=== PATIENT | female | born 1945 | race Caucasian/White ===

== ENCOUNTER 2019-01-19 17:55 | Observation (INO) | payer MEDICARE, SELFPAY ==
[2018-12-04 14:14] VITALS: BMI 51.7
[2019-01-19 17:56] VITALS: BP 160/67; PULSE 71; PULSE 75; RESP 16; TEMP 36.8; O2SAT 96; BMI 55.6
--- NOTE | 2019-01-19 18:20 | CT_ITS ---
STUDY: CTA CHEST REASON FOR EXAM: Female, 73 years old. Pain RADIATION DOSAGE (If Supplied By Facility): CTDIvol = ( 31.58 ) mGy, DLP = ( 792.03 ) mGycm TECHNIQUE: The examination was performed with the intravenous administration of 100ML IV Isovue 370. Post-processing of the angiographic images was performed, with multiplanar reformation and 3D reconstruction. Individualized dose optimization techniques were used for this CT. COMPARISON: None. FINDINGS: Normal enhancement of the main pulmonary artery and right and left pulmonary arteries. Normal enhancement of the bilateral peripheral pulmonary arteries. There is no demonstrated pulmonary embolism. Normal thoracic aorta and visualized great vessels. There is no demonstrated aortic dissection. Normal heart and pericardium. Normal mediastinum. Normal hilar regions. Normal visualized trachea and bronchi. The lungs are well expanded. Mild scattered groundglass opacities are present. There is no consolidation. Normal pleura. Normal chest wall structures. Normal osseous structures. Normal visualized upper abdomen. Moderate multilevel degenerative changes are present throughout the spine. CT/CTA Chest W/WO Contrast IMPRESSION: No pulmonary embolism. Mild scattered ground glass opacities, likely secondary to areas of mild edema or inflammation. No consolidation. Electronically Signed: Jerry Banegas, at 19:26 EDT Tel , Service support ,
--- NOTE | 2019-01-19 18:20 | EKG12_ITS ---
Test Reason : CP Blood Pressure : / mmHG Vent. Rate : 078 BPM Atrial Rate : 078 BPM P-R Int : 136 ms QRS Dur : 082 ms QT Int : 406 ms P-R-T Axes : 077 052 061 degrees QTc Int : 462 ms Sinus rhythm with Premature atrial complexes Otherwise normal ECG Confirmed by RAHUL JOSE, ARIAN ([id number]), technical writer and editor MAMIE HENDERSON ([id number]) on 01/22/2019 1:15:32 PM Referred By: MARLI/DARSHAN Confirmed By:ARIAN KAY MD
[2019-01-19 18:24] VITALS: O2SAT 94
[2019-01-19] MEDS: Aspirin 81 MG TAB.CHEW 324 MG PO (18:28)
[2019-01-19 18:31] LABS: Absolute Lymphocyte Count 1.25 X10^3/ul (0.83-4.51); Absolute Neutrophil Count 5.3 X10^3/uL (2.0-7.7); Basophil# 0.02 X10^3/uL; Basophil% 0.3 % (0-1); Eosinophil# 0.65 X10^3/uL; Eosinophils% 8.3 % (0-5); Hematocrit 40.1 % (37-47); Hemoglobin 12.9 g/dl (12.0-15.0); Lymphocyte # 1.25 X10^3/ul (4.0); Mean Corp Hgb Conc 32.2 g/gl (32-36); Mean Corpuscular Hgb 29.7 pg (27.0-32.0); Mean Corpuscular Volume 92.2 fL (81-99); Monocyte# 0.56 X10^3/uL; Monocyte% 7.2 % (0-10); Neutrophil # 5.31 X10^3/uL (2.7-7.7); Neutrophil % 68.1 % (47-70); Platelet Count 221 K/mm3 (150-450); RBC Distribution Width CV 13.2 % (11.6-14.6); RBC Distribution Width SD 44.5 fl (35.1-43.9); Red Blood Count 4.35 M/mm3 (4.2-5.4); White Blood Count 7.8 K/mm3 (4.4-11.0)
[2019-01-19 18:36] LABS: POSITIVE COUNT NO; POSITIVE DIFFERENTIAL NO; POSITIVE MORPHOLOGY NO
[2019-01-19 18:39] LABS: International Normalized Ratio 1.1; Prothrombin Time (Protime)PT. 13.5 SECONDS (11.7-14.9)
[2019-01-19 18:40] LABS: Partial Thromboplast Time 29.1 Seconds (24.1-36.2)
[2019-01-19 18:45] LABS: Anion Gap 4 (5-15); BUN 23 mg/dL (7-18); BUN/Creat Ratio 20.7 RATIO (10-20); Chloride 105 mmol/L (98-107); Creatinine, Serum 1.11 mg/dL (0.55-1.02); EST Glomerular Filtration Rate 51 mL/min (>60); Est Glom Filt Rate - Afr Amer 62 mL/min (>60); Estimated Creatinine Clearance 45.53 ml/min; Glucose 178 mg/dL (74-106); Sodium Level 139 mmol/L (136-145)
[2019-01-19 20:53] VITALS: BP 149/69
--- NOTE | 2019-01-19 21:01 | ED.DCSUM_ITS ---
- ER Visit Summary Date of Service: 01/19/19 Chief Complaint: Chest pain History of Present Illness: The patient is a 73 F with chest pain for about an hour prior to arrival. It started after she was on her exercise bike. Left side breast pain, shooting pain. Better with rest. She felt an irregular hear tbeat as well. History of PACs, PVCs, SVT, diabetes, hypertension, hyperlipidemia, venous thromboembolism. She takes aspirin but no other blood thinners. Former smoker. Physical Examination: Afebrile and vital signs unremarkable. Alert and oriented. No acute distress. Heart regular. Lungs clear. Abdomen soft. Extremities nontender. Skin appears normal. Test Results: EKG shows sinus rhythm at a rate of 78. PACs noted. No sign of acute ischemia or infarction pattern. CBC, BMP, troponin unremarkable. CTA showed no evidence of PE. She has mild scattered groundglass opacities. Emergency Department Course and Treatment: Patient was placed on a monitor. Evaluated for chest pain, angina, PE. Work-up was all fairly unremarkable. Patient has multiple risk factors for heart disease. No history of coronary disease. No recent evaluation. I believe she needs further inpatient testing as she has a heart score of 5. Treatment Plan: As above Disposition: Obs PCU Impression: 1. Chest pain This note was generated with [employer] dictation software. It may contain incorrect words, spelling, and punctuation that were not noted in review of the chart prior to signing ED Disposition - Plan for ED Patient: Referrals: Luzma Palencia MD [Primary Care Provider] -
--- NOTE | 2019-01-19 21:30 | PCM.HP.STD ---
Problem List (1) Chest pain Status: Acute History of Present Illness Date of Admission: 01/19/19 Chief Complaint: chest pain The patient is a 73 year old F with a significant history of former smoker; asthma; diabetes mellitus; hypertension; hyperlipidemia; SVT; PACs and PVCs who presented to emergency department with chest pain that started the same day of admission. Her symptoms started while she was getting ready to end exercising on a bike. Her chest pain started on her left upper chest close to her shoulder and it radiated diagonally toward her mid sternum. Her chest pain lasted only a few seconds and as such no aggravating or ameliorating factors could be obtained. She describes her chest pain as a burning sensation. After this brief episode she has had persistence soreness of her chest. Associated with symptoms is nausea without vomiting. Also she had shortness of breath but she attributes her shortness of breath to a history of asthma. She denies any diaphoresis. Reportedly about 4 years ago she had a positive stress test for which reason a cardiac cath was done. However the cardiac cath was unremarkable. Past Medical History Past Medical History (Chronic Problems): Chronic Problems (Last Reviewed 01/19/19 @ 22:50 by Krystian Sandoval MD) Essential hypertension (Chronic) Diabetes mellitus, type II (Chronic) Hyperlipidemia (Chronic) Medical History: Medical History (Last Reviewed 01/20/19 @ 05:56 by Krystian Sandoval MD) Essential hypertension (Chronic) I10 Premature atrial contractions (Acute) I49.1 Paroxysmal SVT (supraventricular tachycardia) (Acute) I47.1 Premature ventricular contraction (Acute) I49.3 Diabetes mellitus, type II (Chronic) E11.9 Hyperlipidemia (Chronic) E78.5 Bimalleolar ankle fracture S82.843A History of DVT (deep vein thrombosis) Z86.718 Asthma J45.909 Charcot's joint of left foot M14.672 GERD (gastroesophageal reflux disease) K21.9 Hypertension (Inactive) I10 Allergies escitalopram Allergy (Verified 12/04/18 14:14) Other hydrochlorothiazide Allergy (Verified 12/04/18 14:14) Other codeine Adverse Reaction (Verified 12/04/18 14:14) Nausea naproxen [From Naprosyn] Adverse Reaction (Verified 12/04/18 14:14) Nausea Home Medications: Ambulatory Orders Medication Instructions Recorded Diltiazem CD [Cardizem CD] 180 mg PO BID 03/06/16 Insulin Lispro [Humalog] 6 unit SC TID 12/16/16 aspirin 81 mg tablet,delayed 81 mg PO DAILY 11/24/17 release Ergocalciferol [Vitamin D] 50,000 unit PO SA 01/19/19 Fluticasone/Salmeterol [Advair 1 puff INHALATION BID 01/19/19 100-50 Diskus] Insulin Glargine,Hum.rec.anlog 20 - 25 unit SQ QHS 01/19/19 [Basaglar Kwikpen U-100] Insulin NPH Human Isophane 10 units SQ DAILY 01/19/19 [Novolin N] Metoprolol Tartrate 25 mg PO DAILY 01/19/19 Metoprolol Tartrate 50 mg PO DAILY 01/19/19 Omeprazole [Prilosec] 20 mg PO BID 01/19/19 Ramipril 10 mg PO BID 01/19/19 Zolpidem Tartrate [Ambien] 2.5 mg PO QHS PRN PRN 01/19/19 Surgical History: Surgical History (Last Reviewed 01/20/19 @ 05:56 by Krystian Sandoval MD) History of cholecystectomy Z90.49 History of tonsillectomy Z90.89 Surgical History: cholecystectomy, herniorrhaphy, tonsillectomy Psychiatric History: Anxiety, Depression 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 Denies: Palpitations Respiratory: Reports: Shortness of Breath. Denies: Cough Gastrointestinal: Reports: Nausea. Denies: Abdominal Pain, Vomiting Genitourinary: Denies: Dysuria Musculoskeletal: Denies: Joint Pain, Joint Tenderness Skin: Denies: Rash, Wounds Neurological: Denies: Numbness, Tingling, Focal weakness Psychiatric: Denies: Anxiety, Depression, Homicidal Ideations, Suicidal Ideations Hematologic/ Lymphatic: Denies: Easy Bruising, Easy Bleeding VTE Information - Inpt Only VTE Present on Admission: No VTE Mechan Device Prophylaxis: None VTE Pharm Prophylaxis ordered?: Yes Patient Problems: Active and Suspected Problems (Last Reviewed 01/19/19 @ 22:50 by Krystian Sandoval MD) Chest pain (Acute) - Physical Exam General: Alert, Oriented x3, Cooperative, - - Super morbidly obese HEENT: Atraumatic, PERRLA, EOMI, Normocephalic Neck: Supple, No JVD, Negative Carotid Bruits Lungs: Clear to auscultation, Normal air movement Cardiovascular: Regular rate, No murmurs Abdomen: Bowel Sounds Present, Soft, Non Tender Extremities: No edema, Capillary Refill Less than 3 Seconds Skin: No rashes, No breakdown Musculoskeletal: - - Deformed bilateral feet Neurological: Cranial nerves II-XII grossly intact Psych/Mental Status: Anxious Vital Signs Temp Pulse Resp BP Pulse Ox 98.3 F 71 16 149/69 H 94 01/19/19 17:56 01/19/19 17:56 01/19/19 17:56 01/19/19 20:53 01/19/19 18:24 Oxygen Delivery Method Room Air Weight: 166 kg Body Mass Index (BMI) 55.6 Finger Stick Blood Glucose 140 Laboratory Tests Past 24 Hrs 01/19/19 01/19/19 01/19/19 18:00 18:00 18:00 WBC 7.8 RBC 4.35 Hgb 12.9 Hct 40.1 MCV 92.2 MCH 29.7 MCHC 32.2 RDW 13.2 RDW Differential 44.5 H Plt Count 221 MPV 12.0 Immature Gran % (Auto) 0.100 Neut % (Auto) 68.1 Lymph % (Auto) 16.0 L [place] % (Auto) 7.2 Eos % (Auto) 8.3 H Baso % (Auto) 0.3 Absolute Neuts (auto) 5.3 Absolute Lymphs (auto) 1.25 Total Counted Not Reportable PT 13.5 INR 1.1 APTT 29.1 Sodium 139 Potassium 4.0 Chloride 105 Carbon Dioxide 30.0 Anion Gap 4 L BUN 23 H Creatinine 1.11 H Estim Creat Clear Calc 45.53 Est GFR (MDRD) Af Amer 62 Est GFR (MDRD) Non-Af 51 L BUN/Creatinine Ratio 20.7 H Glucose 178 H Calcium 9.0 Troponin I < 0.015 Assessment/Plan All Active Problems (Last Reviewed 01/19/19 @ 22:50 by Krystian Sandoval MD) Chest pain (Acute) Premature atrial contractions (Acute) Paroxysmal SVT (supraventricular tachycardia) (Acute) Premature ventricular contraction (Acute) The patient is a 73 year old F with a significant history of former smoker; diabetes mellitus; hypertension; hyperlipidemia; SVT; PACs and PVCs who presented to emergency department with chest pain that started with riding on a bike. Chest pain Admit to a monitored bed on PCU CTPA showed no pulmonary embolism. Mild scattered groundglass opacities likely secondary areas of mild edema or inflammation. No consolidation. CTPA was independently reviewed. I agree with images interpretation. EKG independently reviewed confirms PAC Received aspirin 324 mg in the emergency department ASA 81 mg p.o. daily continued SL NTG 0.4 mg prn as needed for chest pain Morphine as needed for pain We will check lipid panel. Serial cardiac enzymes Stat EKG as needed for chest pain Chemical Stress test in the AM if the cardiac enzymes are negative. Patient has Charcot joints and wear a brace and cannot do treadmill stress test. Hypertension On presentation her blood pressure was not within goal Metoprolol and JOEY inhibitor continued Cardizem continued Hydralazine as needed ordered Trend blood pressure and adjust blood pressure medication Diabetes mellitus On presentation her blood glucose was elevated but within goal Patient takes 20 to 25 units of Basaglar at home. Will de-escalate her long acting insulin in the hospital setting. She takes prandial insulin at home. Patient will be kept n.p.o. for stress test. Will check Accu-Chek every 6 hours and put her on a correction scale insulin. Vitamin D deficiency Vitamin D continued GERD Prilosec continued Insomnia Ambien continued Asthma Advair continued DVT prophylaxis Subcutaneous Lovenox Code Visit OBSV E&M: [id number] Initial observation care L3
[2019-01-19 22:39] VITALS: BP 176/73; PULSE 66; RESP 18; TEMP 36.6; O2SAT 95
[2019-01-19 22:40] VITALS: BMI 54.8
[2019-01-19 22:50] VITALS: PULSE 63
[2019-01-19 22:53] VITALS: BMI 54.9
--- NOTE | 2019-01-19 22:54 | EKG12_ITS ---
Test Reason : CP ADMIT Blood Pressure : / mmHG Vent. Rate : 061 BPM Atrial Rate : 061 BPM P-R Int : 140 ms QRS Dur : 086 ms QT Int : 438 ms P-R-T Axes : 075 049 060 degrees QTc Int : 440 ms Sinus rhythm with Premature atrial complexes Confirmed by RAHUL JOSE, ARIAN ([id number]), social media editor RANJITH GUZMAN ([id number] on 01/25/2019 1:17:09 PM Referred By: DR GASTON Confirmed By:ARIAN KAY MD
[2019-01-20] VITALS (11 sets, daily range): BP systolic 138–173; BP diastolic 53–73; PULSE 55–82; RESP 16–18; TEMP 36.4–36.6; O2SAT 93–98
[2019-01-20] MEDS: Zolpidem Tartrate 5 MG Tablet 2.5 MG PO (00:04)
[2019-01-20 00:20] LABS: Bedside Glucose 135 mg/dL (70-110)
[2019-01-20] MEDS: 0.9% NaCl Peripheral Flush Adult/Peds IV (00:34)
[2019-01-20] MEDS: hydrALAZINE 20 MG/ML Vial 10 MG IV (00:34)
[2019-01-20 04:57] LABS: Absolute Lymphocyte Count 0.85 X10^3/ul (0.83-4.51); Absolute Neutrophil Count 4.3 X10^3/uL (2.0-7.7); Basophil# 0.03 X10^3/uL; Basophil% 0.5 % (0-1); Eosinophil# 0.62 X10^3/uL; Eosinophils% 9.9 % (0-5); Hematocrit 38.6 % (37-47); Hemoglobin 12.3 g/dl (12.0-15.0); Lymphocyte # 0.85 X10^3/ul (4.0); Lymphocyte % 13.6 % (19-41); Mean Corp Hgb Conc 31.9 g/gl (32-36); Mean Corpuscular Hgb 29.2 pg (27.0-32.0); Mean Corpuscular Volume 91.7 fL (81-99); Mean Platelet Vol. 11.9 fl (6.2-12.0); Monocyte# 0.49 X10^3/uL; Monocyte% 7.8 % (0-10); Neutrophil # 4.26 X10^3/uL (2.7-7.7); Neutrophil % 68.2 % (47-70); Platelet Count 174 K/mm3 (150-450); RBC Distribution Width SD 42.7 fl (35.1-43.9); Red Blood Count 4.21 M/mm3 (4.2-5.4); White Blood Count 6.3 K/mm3 (4.4-11.0)
[2019-01-20 04:58] LABS: POSITIVE COUNT NO; POSITIVE DIFFERENTIAL NO; POSITIVE MORPHOLOGY NO
[2019-01-20 05:02] LABS: International Normalized Ratio 1.1; Prothrombin Time (Protime)PT. 13.7 SECONDS (11.7-14.9)
[2019-01-20 05:03] LABS: Partial Thromboplast Time 29.5 Seconds (24.1-36.2)
[2019-01-20 05:05] LABS: Anion Gap 8 (5-15); BUN 21 mg/dL (7-18); BUN/Creat Ratio 24.7 RATIO (10-20); Calcium,Total 8.5 mg/dL (8.5-10.1); Chloride 104 mmol/L (98-107); Creatinine, Serum 0.85 mg/dL (0.55-1.02); EST Glomerular Filtration Rate 70 mL/min (>60); Est Glom Filt Rate - Afr Amer 84 mL/min (>60); Estimated Creatinine Clearance 59.46 ml/min; Glucose 261 mg/dL (74-106); Potassium 3.8 mmol/L (3.5-5.1); Sodium Level 141 mmol/L (136-145)
--- NOTE | 2019-01-20 05:55 | EKG12_ITS ---
Test Reason : AM EKG Blood Pressure : / mmHG Vent. Rate : 058 BPM Atrial Rate : 058 BPM P-R Int : 148 ms QRS Dur : 084 ms QT Int : 464 ms P-R-T Axes : 069 044 051 degrees QTc Int : 455 ms Sinus bradycardia Confirmed by RAHUL JOSE, ARIAN ([id number]), acquisitions editor RANJITH GUZMAN ([id number] on 01/25/2019 1:13:34 PM Referred By: DR GASTON Confirmed By:ARIAN KAY MD
[2019-01-20] MEDS: Ramipril 10 MG Capsule PO (06:25)
[2019-01-20] MEDS: Aspirin E.C. 81 MG Tablet PO (06:25)
[2019-01-20] MEDS: Budesonide Respules 0.5 MG/2 ML AMPUL.NEB. INHALATION (07:03)
[2019-01-20] MEDS: Albuterol 2.5 MG/3 ML VIAL.NEB. INHALATION ×2 (07:03→13:20)
[2019-01-20 07:12] LABS: Cholesterol 170 mg/dL (200); High Density Lipoprotein 60 mg/dL; Triglycerides 91 mg/dL; Very Low Density Lipoprotein 18 mg/dL (5-40)
[2019-01-20 11:16] LABS: Bedside Glucose 407 mg/dL (70-110)
[2019-01-20] MEDS: Metoprolol Tartrate 50 MG Tablet PO (11:23)
[2019-01-20] MEDS: Metoprolol Tartrate 25 MG Tablet PO (11:23)
[2019-01-20] MEDS: Nystatin Ointment 1 APPLIC TOPICAL (11:23)
[2019-01-20] MEDS: Insulin Lispro 100 UNIT/ML INSULN.PEN SC (11:24)
[2019-01-20] MEDS: Pantoprazole Sodium 20 MG Tablet PO (11:24)
[2019-01-20] MEDS: dilTIAZem CD 180 MG Capsule PO (11:30)
--- NOTE | 2019-01-20 11:43 | DCINST_ITS ---
- Discharge Diagnoses Current Active Problems: Current Active and Chronic Problems (Last Reviewed 01/20/19 @ 05:56 by Krystian Sandoval MD) Chest pain (Acute) You will use the following diet at home:: Calorie/Carbohydrate Controlled (specify 1200, 1400, etc), Cardiac Discharge Activity: Return to Normal Activity Call your doctor if you observe: Shortness of breath, Dizziness, Fainting spells, Chest pain Allergies/Adverse Reactions: Allergies escitalopram Allergy (Verified 12/04/18 14:14) Other hydrochlorothiazide Allergy (Verified 12/04/18 14:14) Other codeine Adverse Reaction (Verified 12/04/18 14:14) Nausea naproxen [From Naprosyn] Adverse Reaction (Verified 12/04/18 14:14) Nausea Medications to take at Discharge Diltiazem CD [Cardizem CD] 180 mg PO BID 03/06/16 Insulin Lispro [Humalog] 6 unit SC TID 12/16/16 aspirin 81 mg tablet,delayed release 81 mg PO DAILY 11/24/17 Ergocalciferol [Vitamin D] 50,000 unit PO SA 01/19/19 Fluticasone/Salmeterol [Advair 100-50 Diskus] 1 puff INHALATION BID 01/19/19 Insulin Glargine,Hum.rec.anlog [Basaglar Kwikpen U-100] 20 - 25 unit SQ QHS 01/19/19 Insulin NPH Human Isophane [Novolin N] 10 units SQ DAILY 01/19/19 Metoprolol Tartrate 25 mg PO DAILY 01/19/19 Metoprolol Tartrate 50 mg PO DAILY 01/19/19 Omeprazole [Prilosec] 20 mg PO BID 01/19/19 Ramipril 10 mg PO BID 01/19/19 Zolpidem Tartrate [Ambien] 2.5 mg PO QHS PRN PRN 01/19/19 Primary Care Physician: Luzma Palencia MD [Primary Care Provider] - Please follow up with your Primary Care Physician in: 1 Week Test Results: Test results from this visit will be discussed in further detail at your follow- up appointment, if applicable. Please Follow Up With: Chris Lott MD When: As scheduled for routine follow up Proposed Discharge Date: 01/20/19
--- NOTE | 2019-01-20 11:55 | STRESSREP ---
Stress Test Report Date: 01-20-19 Procedure: Pharmacologic stress nuclear imaging study Indications: Chest pain Consent: Per the patient Procedure: The patient underwent pharmacologic (Regadenoson) evaluation with a peak heart rate of 87 beats per minute (59 %predicted maximal heart rate) and a peak blood pressure of 146/70 mmHg. The baseline ECG demonstrated normal sinus rhythm. The peak pharmacologic ECG demonstrated no obvious ECG changes. There were no cardiac dysrhythmias pretest, during pharmacologic infusion, or recovery. There was no complaint of chest discomfort during pharmacologic infusion or recovery. The examination was discontinued secondary to completion of protocol. Impression: 1. Pharmacologic (Regadenoson) evaluation 2. Peak pharmacologic ECG with no obvious ECG changes. 3. There were no cardiac dysrhythmias pretest, during pharmacologic infusion, or recovery. 4. Nuclear images pending Myocardial perfusion imaging study: Technique: The patient was injected with 14.5 millicuries of technetium 99m Cardiolite and subsequently rest SPECT Cardiolite nuclear imaging was obtained in the horizontal long, vertical long, and short axis views. The patient underwent pharmacologic (Regadenoson) evaluation with a peak heart rate of 87 beats per minute (59 % percent predicted maximal heart rate) and a peak blood pressure of 146/70 mmHg. The patient was injected with 43.3 millicuries of technetium 99m Cardiolite and subsequently stress SPECT Cardiolite nuclear imaging was obtained in the horizontal long, vertical long, and short axis views. A gated Cardiolite study at peak stress was obtained. Interpretation: Rest and stress SPECT Cardiolite nuclear imaging status post realignment, normalization, and attenuation correction demonstrate upon raw image analysis and element of body motion during image acquisition. At rest there appears to be notation of an element of diminished tracer uptake in portions of the distal anterior segments which status post stress appears to improve and/or normalize.. There is end systolic thickening and brightening. The gated Cardiolite study demonstrates myocardial thickening and inward wall motion. The reported LVEF is 70 %. Impression: 1. Rest and stress SPECT current nuclear imaging demonstrate myocardial perfusion changes appearing more prominent at rest as opposed to stress appearing compatible shifting soft tissue attenuation/artifact with no myocardial perfusion changes considered diagnostic for associated stress-induced myocardial ischemia. 2. The gated Cardiolite study reports an LVEF of 70 %. This note was generated with [employer] software. It may contain incorrect words, spelling, and punctuation that were not noted in checking the note before signing.
[2019-01-20 12:12] LABS: BNP,B-Type NATRIURETIC PEPTIDE 155.9 pg/mL (0-100)
--- NOTE | 2019-01-20 12:47 | PCM.DC.SUM ---
<Smiley Garcia - Last Filed: 01/20/19 12:56> Discharge Date and Diagnosis Date of Admission: 01/19/19 Date of Discharge: 01/20/19 - Primary Discharge Diagnosis Active and Suspected Problems (Last Reviewed 01/20/19 @ 05:56 by Krystian Sandoval MD) 1. Chest pain, ACS ruled out 2. Mild dehydration 3. Hypertension 4. Hyperlipidemia 5. Paroxysmal SVT 6. Type 2 diabetes mellitus 7. Vitamin D deficiency 8. GERD 9. Insomnia 10. Chronic intermittent asthma 11. Charcot foot with BLLE braces 12. Morbid obesity - Secondary Discharge Diagnosis Chronic Problems (Last Reviewed 01/20/19 @ 05:56 by Krystian Sandoval MD) Essential hypertension (Chronic) Diabetes mellitus, type II (Chronic) Hyperlipidemia (Chronic) Hospital Course and Treatment Imaging Results: Diagnostic Data Chest CTA 01/19/19 18:20 IMPRESSION: No pulmonary embolism. Mild scattered ground glass opacities, likely secondary to areas of mild edema or inflammation. No consolidation. Electronically Signed: Jerry Banegas, at 19:26 EDT Tel , Service support , Operations: None Procedures: Stress test Summary of Care Provided: The patient is a 73 year old F admitted 01/19/2019 due to chest pain. 1. Chest pain, ACS ruled out-EKG without ST-T changes. Troponin negative. Patient underwent nuclear stress test which was negative for ischemia. CTA without PE or dissection. Patient reports recent increased shortness of breath which may be contributed to chronic asthma. ACS ruled out. Follow-up with primary care provider in 1 week. If she continues to have increased dyspnea, she may benefit from repeat echocardiogram which can be completed on outpatient basis. BNP 155. No evidence of acute CHF. Echocardiogram November 2013 showed an EF of 60%, mild mitral valve insufficiency, RVSP estimated to be 37 mmHg. Patient follows with Dr. Lott for paroxysmal SVT. Recommend continued routine follow-up with cardiology. 2. Mild dehydration-creatinine/BUN mildly elevated on admission. Resolved with gentle hydration. 3. Hypertension-stable, continue home Cardizem, metoprolol, ramipril regimen. 4. Hyperlipidemia-not on statin. 5. Paroxysmal SVT-follows with Dr. Lott. No SVT during admission. Continue Cardizem, metoprolol regimen. 6. Type 2 diabetes mellitus-continue home insulin regimen. 7. Vitamin D deficiency-continue vitamin D supplementation. 8. GERD-continue Prilosec regimen. 9. Insomnia-on Ambien. 10. Chronic intermittent asthma-no acute exacerbation. 11. Charcot foot with BLLE braces 12. Morbid obesity-encouraged diet and lifestyle modifications. Patient seen and examined prior to discharge. Physical assessment as noted below. Patient is stable for discharge with follow up recommendations as noted above. This patient was seen by JANUARY Gracia under the supervision of Dr. Herring. - Physical Exam General: Alert, Oriented x3, Cooperative HEENT: Atraumatic, PERRLA, EOMI, Normocephalic Neck: Supple, No JVD, Negative Carotid Bruits Lungs: Clear to auscultation, Diminished Cardiovascular: Regular rate, Regular Rhythm, Normal S1, Normal S2, No murmurs Abdomen: Bowel Sounds Present, Soft, Non Tender, Non-Distended, Obese Extremities: No clubbing, No cyanosis, Capillary Refill Less than 3 Seconds, Edema - Chronic nonpitting bilateral lower extremities, - - Bilateral lower extremity braces in place, charcot foot. Skin: No rashes, No breakdown Musculoskeletal: No Tenderness to Palpation of Joints or Extremities Neurological: Cranial nerves II-XII grossly intact, Neuro grossly intact Psych/Mental Status: Normal Affect, Appropriate Vital Signs Temp Pulse Resp BP Pulse Ox 97.6 F L 77 17 161/66 H 93 01/20/19 08:05 01/20/19 11:23 01/20/19 08:05 01/20/19 11:23 01/20/19 08:05 Oxygen Flow Rate (L/min) 2 Oxygen Delivery Method Room Air Weight: 361 lb 15.984 oz Body Mass Index (BMI) 54.8 Finger Stick Blood Glucose 140 Intake and Output for Last 24 Hours 01/18/19 01/19/19 01/20/19 23:59 23:59 23:59 Intake Total 340 / 340 Balance 340 / 340 Laboratory Tests Past 24 Hrs 01/19/19 01/19/19 01/19/19 18:00 18:00 18:00 WBC 7.8 RBC 4.35 Hgb 12.9 Hct 40.1 MCV 92.2 MCH 29.7 MCHC 32.2 RDW 13.2 RDW Differential 44.5 H Plt Count 221 MPV 12.0 Immature Gran % (Auto) 0.100 Neut % (Auto) 68.1 Lymph % (Auto) 16.0 L Glascock % (Auto) 7.2 Eos % (Auto) 8.3 H Baso % (Auto) 0.3 Absolute Neuts (auto) 5.3 Absolute Lymphs (auto) 1.25 Total Counted Not Reportable PT 13.5 INR 1.1 APTT 29.1 Sodium 139 Potassium 4.0 Chloride 105 Carbon Dioxide 30.0 Anion Gap 4 L BUN 23 H Creatinine 1.11 H Estim Creat Clear Calc 45.53 Est GFR (MDRD) Af Amer 62 Est GFR (MDRD) Non-Af 51 L BUN/Creatinine Ratio 20.7 H Glucose 178 H Calcium 9.0 Troponin I < 0.015 B-Natriuretic Peptide Triglycerides Cholesterol LDL Cholesterol VLDL Cholesterol HDL Cholesterol 01/19/19 01/20/19 01/20/19 23:00 02:19 04:37 WBC 6.3 RBC 4.21 Hgb 12.3 Hct 38.6 MCV 91.7 MCH 29.2 MCHC 31.9 L RDW 13.0 RDW Differential 42.7 Plt Count 174 MPV 11.9 Immature Gran % (Auto) 0.000 Neut % (Auto) 68.2 Lymph % (Auto) 13.6 L Glascock % (Auto) 7.8 Eos % (Auto) 9.9 H Baso % (Auto) 0.5 Absolute Neuts (auto) 4.3 Absolute Lymphs (auto) 0.85 Total Counted Not Reportable PT INR APTT Sodium Potassium Chloride Carbon Dioxide Anion Gap BUN Creatinine Estim Creat Clear Calc Est GFR (MDRD) Af Amer Est GFR (MDRD) Non-Af BUN/Creatinine Ratio Glucose Calcium Troponin I < 0.015 < 0.015 B-Natriuretic Peptide Triglycerides Cholesterol LDL Cholesterol VLDL Cholesterol HDL Cholesterol 01/20/19 01/20/19 01/20/19 04:37 04:37 04:37 WBC RBC Hgb Hct MCV MCH MCHC RDW RDW Differential Plt Count MPV Immature Gran % (Auto) Neut % (Auto) Lymph % (Auto) Glascock % (Auto) Eos % (Auto) Baso % (Auto) Absolute Neuts (auto) Absolute Lymphs (auto) Total Counted PT 13.7 INR 1.1 APTT 29.5 Sodium 141 Potassium 3.8 Chloride 104 Carbon Dioxide 29.0 Anion Gap 8 BUN 21 H Creatinine 0.85 Estim Creat Clear Calc 59.46 Est GFR (MDRD) Af Amer 84 Est GFR (MDRD) Non-Af 70 BUN/Creatinine Ratio 24.7 H Glucose 261 H Calcium 8.5 Troponin I B-Natriuretic Peptide 155.9 H Triglycerides Cholesterol LDL Cholesterol VLDL Cholesterol HDL Cholesterol 01/20/19 01/20/19 05:10 05:10 WBC RBC Hgb Hct MCV MCH MCHC RDW RDW Differential Plt Count MPV Immature Gran % (Auto) Neut % (Auto) Lymph % (Auto) Glascock % (Auto) Eos % (Auto) Baso % (Auto) Absolute Neuts (auto) Absolute Lymphs (auto) Total Counted PT INR APTT Sodium Potassium Chloride Carbon Dioxide Anion Gap BUN Creatinine Estim Creat Clear Calc Est GFR (MDRD) Af Amer Est GFR (MDRD) Non-Af BUN/Creatinine Ratio Glucose Calcium Troponin I < 0.015 B-Natriuretic Peptide Triglycerides Cancelled 91 Cholesterol Cancelled 170 LDL Cholesterol Cancelled 92 VLDL Cholesterol Cancelled 18 HDL Cholesterol Cancelled 60 POC Glucose 01/20/19 01/19/19 11:09 23:35 POC Glucose 407 H 135 H Discharge Diet: Low fat/ Low Cholesterol, Carb Control Diet Discharge Activity: Return to Normal Activity Call your doctor if you observe: Shortness of breath, Dizziness, Fainting spells, Chest pain Home Medications: Medications to take at Discharge Diltiazem CD [Cardizem CD] 180 mg PO BID 03/06/16 Insulin Lispro [Humalog] 6 unit SC TID 12/16/16 aspirin 81 mg tablet,delayed release 81 mg PO DAILY 11/24/17 Ergocalciferol [Vitamin D] 50,000 unit PO SA 01/19/19 Fluticasone/Salmeterol [Advair 100-50 Diskus] 1 puff INHALATION BID 01/19/19 Insulin Glargine,Hum.rec.anlog [Basaglar Kwikpen U-100] 20 - 25 unit SQ QHS 01/19/19 Insulin NPH Human Isophane [Novolin N] 10 units SQ DAILY 01/19/19 Metoprolol Tartrate 25 mg PO DAILY 01/19/19 Metoprolol Tartrate 50 mg PO DAILY 01/19/19 Omeprazole [Prilosec] 20 mg PO BID 01/19/19 Ramipril 10 mg PO BID 01/19/19 Zolpidem Tartrate [Ambien] 2.5 mg PO QHS PRN PRN 01/19/19 Primary Care Physician: Luzma Palencia MD [Primary Care Provider] - Please follow up with your Primary Care Physician in: 1 Week Please Follow Up With: Chris Lott MD When: As scheduled for routine follow up Disposition: Home Minutes spent on discharge:: 35 Patient Condition:: Stable Medical Necessity - Tobacco Use Smoking Status: Former smoker Tobacco Use: Non-smoker Meaningful Use Info Meaningful Use Diagnoses (Choose all that apply): None applicable <Tawanda Herring - Last Filed: 01/20/19 13:46> Discharge Date and Diagnosis - Secondary Discharge Diagnosis Chronic Problems (Last Reviewed 01/20/19 @ 05:56 by Krystian Sandoval MD) Essential hypertension (Chronic) Diabetes mellitus, type II (Chronic) Hyperlipidemia (Chronic) Hospital Course and Treatment Imaging Results: 01/20/19 05:55 Nuclear Stress Test - Chemical [NM] AM (NON MEDS) Summary of Care Provided: This patient was seen in conjunction with JANUARY Gracia . I have independently interviewed and examined the patient and reviewed pertinent historical, laboratory, and other data. Please refer to JANUARY Gracia note for details of this patient's presentation, findings, and recommendations. I have reviewed JANUARY Gracia note and concur with documented findings. In brief, patient is a 73-year-old lady with multiple comorbidities including hypertension, paroxysmal SVT, diabetes mellitus type 2 who was admitted with chest pain. Patient was placed in a monitored bed did rule out MN with serial cardiac enzymes. Patient subsequently underwent a nuclear stress test which was negative for stress-induced ischemia. Patient has similar presentation 4 years ago and underwent cardiac catheterization which failed to demonstrate any hemodynamically significant obstructive lesions. Discharge home instructed to follow-up with PCP for subsequent Hospital course: As documented above by NANCIE GraciaC - Physical Exam Vital Signs Temp Pulse Resp BP Pulse Ox 97.6 F L 77 17 161/66 H 93 01/20/19 08:05 01/20/19 11:23 01/20/19 08:05 01/20/19 11:23 01/20/19 08:05 Oxygen Flow Rate (L/min) 2 Oxygen Delivery Method Room Air Weight: 164.2 kg Body Mass Index (BMI) 54.8 Finger Stick Blood Glucose 140 Intake and Output for Last 24 Hours 01/18/19 01/19/19 01/20/19 23:59 23:59 23:59 Intake Total 340 / 340 Balance 340 / 340 Laboratory Tests Past 24 Hrs 01/19/19 01/19/19 01/19/19 18:00 18:00 18:00 WBC 7.8 RBC 4.35 Hgb 12.9 Hct 40.1 MCV 92.2 MCH 29.7 MCHC 32.2 RDW 13.2 RDW Differential 44.5 H Plt Count 221 MPV 12.0 Immature Gran % (Auto) 0.100 Neut % (Auto) 68.1 Lymph % (Auto) 16.0 L Glascock % (Auto) 7.2 Eos % (Auto) 8.3 H Baso % (Auto) 0.3 Absolute Neuts (auto) 5.3 Absolute Lymphs (auto) 1.25 Total Counted Not Reportable PT 13.5 INR 1.1 APTT 29.1 Sodium 139 Potassium 4.0 Chloride 105 Carbon Dioxide 30.0 Anion Gap 4 L BUN 23 H Creatinine 1.11 H Estim Creat Clear Calc 45.53 Est GFR (MDRD) Af Amer 62 Est GFR (MDRD) Non-Af 51 L BUN/Creatinine Ratio 20.7 H Glucose 178 H Calcium 9.0 Troponin I < 0.015 B-Natriuretic Peptide Triglycerides Cholesterol LDL Cholesterol VLDL Cholesterol HDL Cholesterol 01/19/19 01/20/19 01/20/19 23:00 02:19 04:37 WBC 6.3 RBC 4.21 Hgb 12.3 Hct 38.6 MCV 91.7 MCH 29.2 MCHC 31.9 L RDW 13.0 RDW Differential 42.7 Plt Count 174 MPV 11.9 Immature Gran % (Auto) 0.000 Neut % (Auto) 68.2 Lymph % (Auto) 13.6 L Glascock % (Auto) 7.8 Eos % (Auto) 9.9 H Baso % (Auto) 0.5 Absolute Neuts (auto) 4.3 Absolute Lymphs (auto) 0.85 Total Counted Not Reportable PT INR APTT Sodium Potassium Chloride Carbon Dioxide Anion Gap BUN Creatinine Estim Creat Clear Calc Est GFR (MDRD) Af Amer Est GFR (MDRD) Non-Af BUN/Creatinine Ratio Glucose Calcium Troponin I < 0.015 < 0.015 B-Natriuretic Peptide Triglycerides Cholesterol LDL Cholesterol VLDL Cholesterol HDL Cholesterol 01/20/19 01/20/19 01/20/19 04:37 04:37 04:37 WBC RBC Hgb Hct MCV MCH MCHC RDW RDW Differential Plt Count MPV Immature Gran % (Auto) Neut % (Auto) Lymph % (Auto) Glascock % (Auto) Eos % (Auto) Baso % (Auto) Absolute Neuts (auto) Absolute Lymphs (auto) Total Counted PT 13.7 INR 1.1 APTT 29.5 Sodium 141 Potassium 3.8 Chloride 104 Carbon Dioxide 29.0 Anion Gap 8 BUN 21 H Creatinine 0.85 Estim Creat Clear Calc 59.46 Est GFR (MDRD) Af Amer 84 Est GFR (MDRD) Non-Af 70 BUN/Creatinine Ratio 24.7 H Glucose 261 H Calcium 8.5 Troponin I B-Natriuretic Peptide 155.9 H Triglycerides Cholesterol LDL Cholesterol VLDL Cholesterol HDL Cholesterol 01/20/19 01/20/19 05:10 05:10 WBC RBC Hgb Hct MCV MCH MCHC RDW RDW Differential Plt Count MPV Immature Gran % (Auto) Neut % (Auto) Lymph % (Auto) Glascock % (Auto) Eos % (Auto) Baso % (Auto) Absolute Neuts (auto) Absolute Lymphs (auto) Total Counted PT INR APTT Sodium Potassium Chloride Carbon Dioxide Anion Gap BUN Creatinine Estim Creat Clear Calc Est GFR (MDRD) Af Amer Est GFR (MDRD) Non-Af BUN/Creatinine Ratio Glucose Calcium Troponin I < 0.015 B-Natriuretic Peptide Triglycerides Cancelled 91 Cholesterol Cancelled 170 LDL Cholesterol Cancelled 92 VLDL Cholesterol Cancelled 18 HDL Cholesterol Cancelled 60 POC Glucose 01/20/19 01/19/19 11:09 23:35 POC Glucose 407 H 135 H Code Visit OBSV E&M: [id number] Observation care discharge
== END 2019-01-20 14:10 | disposition home or self-care (01) ==
LOC: ED 18:37 → PCU 21:15
PROVIDERS: Nurse Practitioner Family; Admitting Provider Hospitalist; Emergency Provider Emergency Medicine; Family Provider Internal Medicine; PCP Internal Medicine; Visit Provider Internal Medicine
DX: R07.89 Other chest pain (principal); I10 Essential (primary) hypertension; E78.5 Hyperlipidemia, unspecified; E86.0 Dehydration; E11.9 Type 2 diabetes mellitus without complications; E55.9 Vitamin D deficiency, unspecified; K21.9 Gastro-esophageal reflux disease without esophagitis; J45.20 Mild intermittent asthma, uncomplicated; F41.9 Anxiety disorder, unspecified; F32.9 Major depressive disorder, single episode, unspecified; E66.01 Morbid (severe) obesity due to excess calories; E11.610 Type 2 diabetes mellitus with diabetic neuropathic arthropathy; I47.1 Supraventricular tachycardia; R06.00 Dyspnea, unspecified; Z87.891 Personal history of nicotine dependence; Z79.4 Long term (current) use of insulin; Z79.82 Long term (current) use of aspirin; Z79.899 Other long term (current) drug therapy; Z86.718 Personal history of other venous thrombosis and embolism; Z95.0 Presence of cardiac pacemaker; Z68.43 Body mass index [BMI] 50.0-59.9, adult; Z71.3 Dietary counseling and surveillance
CPT/HCPCS: 36415; 71275; 78452; 80048; 80061; 82962; 83880; 84484; 85025; 85610; 85730; 93005; 93017; 94640; 96374; 99218; 99285; A9500; Q9967; A4216; G0378; J2785

== ENCOUNTER → 2021-03-09 12:51 | Outpatient (CLI) | payer MEDICARE, SELFPAY ==
--- NOTE | 2021-03-09 12:55 | BI_ITS ---
MAMMOGRAPHY - BILATERAL SCREENING REASON FOR EXAM: Female, 75 years old. Routine annual screening examination. PERTINENT HISTORY: Grandmother with breast cancer. TECHNIQUE: Digital bilateral breast minal (3D mammographic acquisition) in the CC and MLO projections. 2-D mediolateral oblique (MLO) and craniocaudad (CC) views of both breasts were obtained. CAD: Full Field Digital Mammography with Computer Added Detection was performed. COMPARISON: Comparison is made with prior study dated 06/07/2014 and 02/29/2012. FINDINGS: Breast Composition: There are scattered areas of fibroglandular density. There are no dominant masses or suspicious calcifications. Stable small benign-appearing bilateral axillary lymph nodes. No other significant abnormalities are identified. There has been no significant change since the prior study. BI/SCRN MAMM (CAD)W/MINAL BILAT IMPRESSION: Stable bilateral screening mammogram. Yearly follow-up mammogram recommended. (A) ASSESSMENT CATEGORY: BIRADS Category 2: Benign. A letter regarding these results will be sent to the patient by the facility within 30 days. Approximately 10% of breast cancers are not detected by mammography. A normal mammogram should not delay biopsy of a clinically suspicious abnormality. [id number] Electronically Signed: Jules Terrell MD at 14:26 EDT , Service support ,
== END ==
PROVIDERS: PCP Internal Medicine; Referring Provider Internal Medicine; Visit Provider Internal Medicine
DX: Z12.31 Encounter for screening mammogram for malignant neoplasm of breast (principal)
CPT/HCPCS: 77063; 77067

== ENCOUNTER 2022-02-11 14:19 | Emergency (ER) | payer MEDICARE, SELFPAY ==
[2022-02-11 14:20] VITALS: BP 176/87; PULSE 67; RESP 18; TEMP 36.1; O2SAT 97; BMI 51.9
[2022-02-11 14:44] LABS: Absolute Lymphocyte Count 0.98 X10^3/uL (0.83-4.51); Absolute Neutrophil Count 5.3 X10^3/uL (2.0-7.7); Basophil# 0.03 X10^3/uL; Basophil% 0.4 % (0-1); Eosinophil# 0.28 X10^3/uL; Hematocrit 40.3 % (37-47); Hemoglobin 13.4 g/dL (12.0-15.0); Lymphocyte # 0.98 X10^3/ul (0.83-4.51); Lymphocyte % 13.9 % (19-41); Mean Corp Hgb Conc 33.3 g/dL (32-36); Mean Corpuscular Hgb 29.5 pg (27.0-32.0); Mean Corpuscular Volume 88.8 fL (81-99); Mean Platelet Vol. 11.6 fl (6.2-12.0); Monocyte# 0.46 X10^3/uL; Monocyte% 6.5 % (0-10); NRBC Flagged by Analyzer 0 % (0-5); Neutrophil # 5.31 X10^3/uL (2.7-7.7); Neutrophil % 75.1 % (47-70); Platelet Count 187 K/mm3 (150-450); RBC Distribution Width CV 12.7 % (11.6-14.6); RBC Distribution Width SD 41.5 fl (35.1-43.9); Red Blood Count 4.54 M/mm3 (4.2-5.4); White Blood Count 7.1 K/mm3 (4.4-11.0)
--- NOTE | 2022-02-11 15:00 | EX.ED.DYSGE1 ---
HPI History of Present Illness Chief Complaint: Chest Pain Detail of Chief Complaint: Chief complaint is palpitations not chest pain Informant: patient Onset/Context/Timing Onset: Today Context: Sudden Onset Timing: Intermittent Quality: Skipped beats Location: Chest Current Severity: Mild Maximum Severity: Moderate Worsened by: Nothing Relieved by: None Associated Symptoms Associated Symptoms: no other symptoms Narrative Narrative: Patient is a is a 76-year-old woman with history of palpitations, sinus bradycardia, essential hypertension, premature atrial beats as well as premature ventricular beats. Per old records she has history of diabetes with Charcot's foot and hyperlipidemia. She presents because of palpitations. She denied lightheadedness. She denied dyspnea. She denies pain in her chest, neck or shoulders. She denies headache, visual, ocular auditory symptoms. She does endorse drinking 2 cups of coffee in the morning. She denies any other caffeinated beverages during the day. She denies GI symptoms. She denies symptoms. Prior similar symptoms: Yes (Per old records) Recent Illness/Hospitalization: No PFSH PFSH Medical History Abnormal EKG Asthma Bimalleolar ankle fracture Charcot's joint of left foot Diabetes mellitus, type II Essential hypertension GERD (gastroesophageal reflux disease) History of DVT (deep vein thrombosis) Hyperlipidemia Hypertension Paroxysmal SVT (supraventricular tachycardia) Premature atrial contractions Premature ventricular contraction Sinus bradycardia Home Medications aspirin 81 mg tablet,delayed release 81 mg PO DAILY heart health 11/24/17 [History Last Taken 01/19/19 16:00] ramipril 10 mg capsule 10 mg PO BID HEART 01/19/19 [History Last Taken 01/19/19 21:00] albuterol sulfate 90 mcg/actuation aerosol inhaler (Ventolin HFA) 2 puff inhalation Q6H PRN sob 12/03/19 [History Last Taken Unknown] cholecalciferol (vitamin D3) 1,250 mcg (50,000 unit) capsule 1,250 mcg PO QWEEK 12/03/19 [History Last Taken Unknown] omeprazole 20 mg capsule,delayed release 20 mg PO DAILY GERD 12/03/19 [History Last Taken Unknown] furosemide 20 mg tablet 20 mg PO DAILY PRN water pill 01/22/21 [History Last Taken Unknown] insulin NPH isoph U-100 human 100 unit/mL subcutaneous suspension (Novolin N NPH U-100 Insulin isophane) 15 - 20 unit subcut QAM 01/22/21 [History Last Taken Unknown] insulin glargine 100 unit/mL (3 mL) subcutaneous pen 26 unit subcut QHS DM 01/22/21 [History Last Taken Unknown] insulin lispro 100 unit/mL subcutaneous solution 3 - 10 unit subcut QAC 01/22/21 [History Last Taken Unknown] amlodipine 5 mg tablet (Norvasc) 5 mg PO DAILY #90 tabs 02/12/21 [Rx Last Taken Unknown] metoprolol tartrate 25 mg tablet 25 mg PO BID HEART #180 tabs 02/12/21 [Rx Last Taken Unknown] budesonide-formoterol HFA 160 mcg-4.5 mcg/actuation aerosol inhaler 2 puff inhalation BID 12/21/21 [History Last Taken Unknown] zolpidem 5 mg tablet 2.5 - 5 mg PO QHS PRN Insomnia 02/11/22 [History Last Taken Unknown] Allergy/AdvReac Type Severity Reaction Status Date / Time albuterol [From Ventolin HFA] Allergy Intermediate nausea, Verified 02/11/22 14:27 vomiting pravastatin Allergy Unknown unknown Verified 02/11/22 14:27 rosuvastatin [From Crestor] Allergy Unknown myalgias Verified 02/11/22 14:27 simvastatin Allergy Unknown unknown Verified 02/11/22 14:27 escitalopram Allergy Other Verified 02/11/22 14:27 hydrochlorothiazide Allergy Other Verified 02/11/22 14:27 Kvnvkce-AHJ-EqC Reductase AdvReac Severe myalgias Verified 02/11/22 14:27 Inhibitor [Bxpdgvj-Fqe-Dqu Reductase Inhibitor] codeine AdvReac Nausea Verified 02/11/22 14:27 naproxen [From Naprosyn] AdvReac Nausea Verified 02/11/22 14:27 Family History Mother Aortic stenosis Presence of permanent cardiac pacemaker Surgical History History of cholecystectomy History of tonsillectomy Social History (Updated 02/11/22 @ 15:[address] Mark Castillo MD) household members: spouse Smoking Status: Former smoker alcohol intake: never substance use type: does not use ROS ROS ED Constitutional Constitutional ED: Denies chills, fever(s), subjective, sweats or weight loss Eyes Eyes: Denies blurry vision, change in vision or diplopia ENT ENT ED: Denies ear pain, rhinorrhea or sore throat Cardiovascular Cardiovascular: Reports palpitations; Denies chest pain, orthopnea, paroxysmal nocturnal dyspnea or racing heartbeat Respiratory/Chest Respiratory/Chest: Denies cough, dyspnea, dyspnea on exertion, orthopnea or paroxysmal nocturnal dyspnea Gastrointestinal Gastrointestinal: Denies abdominal pain, melena, nausea or vomiting Genitourinary Genitourinary ED: Denies dysuria, hematuria or urinary frequency Musculoskeletal Musculoskeletal: Denies arthralgias, back pain, myalgias or neck pain Integumentary Denies Abrasions or rash Neurologic Neurologic: Denies headache(s) or paresthesias Psychiatric Psychiatric: Reports anxiety Endocrine Endocrinology: Denies polydipsia, polyphagia or polyuria Hematologic/Lymphatic Hematologic/Lymphatic: Reports systems reviewed and no addt'l complaints, except as documented Allergic/Immunologic Allergic/Immunologic ED: Denies mouth swelling or tongue swelling EXAM Physical Exam Const Vital Signs: 02/11/22 14:20 Temperature 97.0 F L Temperature Source Temporal Pulse Rate 67 Respiratory Rate 18 Blood Pressure 176/87 H Blood Pressure Mean 116 Pulse Ox 97 Oxygen Delivery Method Room Air Positive well nourished, well developed and obese General Appearance ED: well developed and NAD; Negative for cyanotic or diaphoretic Nutritional Appearance: obese HEENT Reports moist mucous membranes HEENT Narrative: Ears normal. Nares patent. Uvula midline. There is no erythema or exudate in the posterior pharynx. Negative for trauma or tenderness Eyes PERRL and EOMs intact bilaterally General Eye ED: Negative for pale conjunctiva or scleral icterus Neck no lymphadenopathy, supple and no JVD Neck Narrative: Trachea is midline. Chest Wall inspection of chest normal and palpation of chest normal Resp normal respiratory effort and clear to auscultation bilaterally Cardio regular rate, S1 normal heart sound, S2 normal heart sound and no murmurs Rhythm: abnormal rhythm other (Ectopic beats appreciated) GI normal to inspection, nondistended, normoactive bowel sounds, non-tender and non-distended Auscultation: hypoactive bowel sounds Palpation: soft Back/Spine no CVA tenderness Cervical Spine: Negative for cervical spine tenderness Thoracic Spine / Upper Back: Negative for thoracic spinal tenderness Lumbar Spine / Lower Back: Negative for lumbar spinal tenderness Extremity General Extremety ED: Yes edema; Negative for tenderness General Extremity: edema Neuro oriented x3, CN's II-XII intact bilaterally and no sensory deficits noted Sensorium / Orientation: alert Motor Exam: strength 5/5 throughout Psych mental status grossly normal Skin no rashes or lesions noted and no wounds General Skin Exam: Negative for jaundice MDM MDM MDM Narrative Medical decision making narrative: Patient with premature atrial beats noted on the monitor and her twelve-lead EKG. She has a history of this. These are insignificant. We will assess electrolytes to rule out hypokalemia. Lab Data Attestation: I reviewed the patient's lab results. Labs: Laboratory Results - last 24 hr 02/11/22 02/11/22 14:15 14:15 WBC 7.1 RBC 4.54 Hgb 13.4 Hct 40.3 MCV 88.8 MCH 29.5 MCHC 33.3 RDW Std Deviation 41.5 RDW Coeff of Madalyn 12.7 Plt Count 187 MPV 11.6 Immature Gran % (Auto) 0.100 Neut % (Auto) 75.1 H Lymph % (Auto) 13.9 L Sebastian % (Auto) 6.5 Eos % (Auto) 4.0 Baso % (Auto) 0.4 Absolute Neuts (auto) 5.3 Absolute Lymphs (auto) 0.98 Nucleated RBC % 0 Sodium 138 Potassium 4.1 Chloride 104 Carbon Dioxide 30.0 Anion Gap 4 L BUN 15 Creatinine 1.04 H Estim Creat Clear Calc 48.09 Est GFR (MDRD) Af Amer 66 Est GFR (MDRD) Non-Af 55 L BUN/Creatinine Ratio 14.4 Glucose 144 H Calcium 9.2 TSH 2.08 EKG Initial EKG: Attestation: I personally reviewed and interpreted this EKG as follows: Interpretation: Sinus Rhythm (Rate is 63 with premature atrial beats noted. [place] intervals 100.2 ms. QS duration 80 ms. QT duration 412 ms. Mercer is normal. Other than the premature beats the EKG is normal.) Discharge Plan Triage Chief Complaint: Chest Pain ED Provider: Mark Castillo Dx/Rx/DC Orders Clinical Impression: Premature atrial contractions, Essential hypertension, Diabetes mellitus, type II, History of PSVT (paroxysmal supraventricular tachycardia) Instructions: Understanding Heart Palpitations, ED Palpitations Prescriptions: No Action aspirin 81 mg tablet,delayed release (DR/EC) 81 mg PO DAILY cholecalciferol (vitamin D3) 1,250 mcg (50,000 unit) capsule 1,250 mcg PO QWEEK albuterol sulfate [Ventolin HFA] 90 mcg/actuation HFA aerosol inhaler 2 puff INHALATION Q6H PRN (Reason: sob) furosemide 20 mg tablet 20 mg PO DAILY PRN (Reason: water pill) Novolin N NPH U-100 Insulin 100 unit/mL suspension 15 - 20 unit subcut QAM insulin lispro 100 unit/mL solution 3 - 10 unit subcut QAC Label Comments: INJECT 3 TO 10 UNITS SUBCUTANEOUSLY BEFORE MEALS DIRECTED metoprolol tartrate 25 mg tablet 25 mg PO BID Qty: 180 3RF amlodipine [Norvasc] 5 mg tablet 5 mg PO DAILY Qty: 90 3RF budesonide-formoterol 160-4.5 mcg/actuation HFA aerosol inhaler 2 puff inhalation BID ramipril 10 MG capsule 10 mg PO BID Label Comments: TAKE 1 CAPSULE BY MOUTH TWICE DAILY omeprazole 20 mg capsule,delayed release(DR/EC) 20 mg PO DAILY Label Comments: Indigestion insulin glargine 100 unit/mL (3 mL) insulin pen 26 unit subcut QHS zolpidem 5 mg Tablet 2.5 - 5 mg PO QHS PRN (Reason: Insomnia) Primary Care Provider: Luzma Palencia Referrals: Luzma Palencia MD [Primary Care Provider] - As Needed Mingo Langley MD [NON-STAFF] - As Needed Disposition Disposition: Home, Self Care
[2022-02-11 15:06] LABS: Anion Gap 4 (5-15); BUN 15 mg/dL (7-18); BUN/Creat Ratio 14.4 RATIO (10-20); Calcium,Total 9.2 mg/dL (8.5-10.1); Chloride 104 mmol/L (98-107); Creatinine, Serum 1.04 mg/dL (0.55-1.02); EST Glomerular Filtration Rate 55 mL/min (>60); Est Glom Filt Rate - Afr Amer 66 mL/min (>60); Estimated Creatinine Clearance 48.09 ml/min; Glucose 144 mg/dL (74-106); Potassium 4.1 mmol/L (3.5-5.1); Sodium Level 138 mmol/L (136-145); Thyroid Stim Hormone (TSH) 2.08 uIU/mL (0.358-3.74)
[2022-02-11 15:20] VITALS: BP 154/74; PULSE 63; RESP 16; O2SAT 96
--- NOTE | 2022-02-11 15:52 | EKG12_ITS ---
Test Reason : CP Blood Pressure : / mmHG Vent. Rate : 063 BPM Atrial Rate : 063 BPM P-R Int : 142 ms QRS Dur : 080 ms QT Int : 412 ms P-R-T Axes : 076 047 066 degrees QTc Int : 421 ms Sinus rhythm with Premature supraventricular complexes Abnormal ECG Confirmed by THOMAS JOSE, BRIAN ([id number]), video effects editor MAMIE HENDERSON ([id number]) on 02/15/2022 11:23:14 AM Referred By: Jonathan Confirmed By:URIEL GUZMAN MD
== END 2022-02-11 15:21 | disposition home or self-care (01) ==
PROVIDERS: Emergency Provider Emergency Medicine; PCP Internal Medicine; Visit Provider Emergency Medicine
DX: I49.1 Atrial premature depolarization (principal); E11.9 Type 2 diabetes mellitus without complications; Z79.4 Long term (current) use of insulin; I10 Essential (primary) hypertension; E66.9 Obesity, unspecified; K21.9 Gastro-esophageal reflux disease without esophagitis; J45.909 Unspecified asthma, uncomplicated; Z86.718 Personal history of other venous thrombosis and embolism; Z79.82 Long term (current) use of aspirin; Z79.899 Other long term (current) drug therapy; Z87.891 Personal history of nicotine dependence
CPT/HCPCS: 80048; 84443; 85025; 93005; 99283

== ENCOUNTER → 2022-03-10 | Outpatient (CLI) | payer MEDICARE, SELFPAY ==
--- NOTE | 2022-03-10 10:51 | BI_ITS ---
MAMMOGRAPHY - BILATERAL SCREENING REASON FOR EXAM: Female, 76 years old. Routine annual screening examination. PERTINENT HISTORY: Grandmother with breast cancer. TECHNIQUE: Digital bilateral breast minal (3D mammographic acquisition) in the CC and MLO projections. 2-D mediolateral oblique (MLO) and craniocaudad (CC) views of both breasts were obtained. CAD: Full Field Digital Mammography with Computer Added Detection was performed. COMPARISON: Comparison is made with prior study 03/09/2021 and 06/07/2014. FINDINGS: Breast Composition: There are scattered areas of fibroglandular density. There are no dominant masses or suspicious calcifications. No other significant abnormalities are identified. There has been no significant change since the prior study. BI/SCRN MAMM (CAD)W/MINAL BILAT IMPRESSION: Stable bilateral screening mammogram. Yearly follow-up mammogram recommended. (A) ASSESSMENT CATEGORY: BIRADS Category 1: Negative. A letter regarding these results will be sent to the patient by the facility within 30 days. Approximately 10% of breast cancers are not detected by mammography. A normal mammogram should not delay biopsy of a clinically suspicious abnormality. [id number] Electronically Signed: Jules Terrell MD at 12:06 EDT ,
== END | disposition home or self-care (01) ==
LOC: OPBI 10:49
PROVIDERS: PCP Internal Medicine; Visit Provider Internal Medicine
DX: Z12.31 Encounter for screening mammogram for malignant neoplasm of breast (principal)
CPT/HCPCS: 77063; 77067

== ENCOUNTER 2022-07-10 14:15 | Inpatient (IN) | payer MEDICARE, SELFPAY ==
[2022-07-10] VITALS (15 sets, daily range): BP systolic 125–153; BP diastolic 57–73; PULSE 78–100; RESP 16–28; TEMP 36.3–37.8; O2SAT 84–99; BMI 49.6
[2022-07-10 15:22] LABS: Absolute Lymphocyte Count 0.35 X10^3/uL (0.83-4.51); Absolute Neutrophil Count 4.6 X10^3/uL (2.0-7.7); Basophil# 0.02 X10^3/uL; Basophil% 0.4 % (0-1); Eosinophil# 0.04 X10^3/uL; Eosinophils% 0.7 % (0-5); Hematocrit 43.4 % (37-47); Hemoglobin 13.8 g/dL (12.0-15.0); Lymphocyte # 0.35 X10^3/ul (0.83-4.51); Lymphocyte % 6.3 % (19-41); Mean Corp Hgb Conc 31.8 g/dL (32-36); Mean Corpuscular Hgb 29.1 pg (27.0-32.0); Mean Corpuscular Volume 91.6 fL (81-99); Mean Platelet Vol. 11.6 fl (6.2-12.0); Monocyte# 0.48 X10^3/uL; Monocyte% 8.7 % (0-10); NRBC Flagged by Analyzer 0 % (0-5); Neutrophil # 4.61 X10^3/uL (2.7-7.7); Neutrophil % 83.5 % (47-70); POSITIVE DIFFERENTIAL YES; Platelet Count 193 K/mm3 (150-450); RBC Distribution Width CV 12.6 % (11.6-14.6); RBC Distribution Width SD 42.4 fl (35.1-43.9); Red Blood Count 4.74 M/mm3 (4.2-5.4); White Blood Count 5.5 K/mm3 (4.4-11.0)
[2022-07-10 15:24] LABS: Differential Indicated SCAN CRITERIA MET
--- NOTE | 2022-07-10 15:25 | RAD_ITS ---
STUDY: X-RAY CHEST REASON FOR EXAM: Female, 76 years old. cough TECHNIQUE: XR Chest 1 View COMPARISON: 5.7.14 FINDINGS: There is atherosclerotic calcification of the aortic arch with tortuosity. There are diffuse degenerative changes of the visualized thoracic spine. There is degenerative osteoarthritis of the bilateral shoulders. There is no demonstrated pleural abnormality. Normal size heart. Normal mediastinum and christie. Normal visualized pulmonary arteries. There is no demonstrated abnormality of the visualized soft tissue structures of the upper abdomen. RAD/Chest 1 View (Portable) IMPRESSION: There are no acute findings. Electronically Signed: Mohsen Ren MD at 15:44 EST ,
[2022-07-10 15:36] LABS: Anion Gap 8 (5-15); BUN 19 mg/dL (7-18); BUN/Creat Ratio 22.1 RATIO (10-20); Calcium,Total 8.8 mg/dL (8.5-10.1); Chloride 101 mmol/L (98-107); Creatinine, Serum 0.86 mg/dL (0.55-1.02); EST Glomerular Filtration Rate 68 mL/min (>60); Est Glom Filt Rate - Afr Amer 82 mL/min (>60); Estimated Creatinine Clearance 58.16 ml/min; Glucose 253 mg/dL (74-106); Potassium 3.8 mmol/L (3.5-5.1); Sodium Level 136 mmol/L (136-145)
[2022-07-10 15:52] LABS: Differential Comment SCANNED
--- NOTE | 2022-07-10 16:23 | EDS_ITS ---
HPI History of Present Illness Chief Complaint: General Illness Narrative Narrative: 76-year-old female presenting with chills, body aches, nausea/vomiting since yesterday. Today she feels like she was getting worse. She states he is having difficulty breathing. She did do an albuterol inhaler earlier in the day and states it did help but she did not try this again. She was told she can only do this twice a day. She has not had a fever at home. No urinary or vaginal complaints. [facility] Medical History Abnormal EKG Asthma Bimalleolar ankle fracture Charcot's joint of left foot Diabetes mellitus, type II Essential hypertension GERD (gastroesophageal reflux disease) History of DVT (deep vein thrombosis) Hyperlipidemia Hypertension THAIS (obstructive sleep apnea) Paroxysmal SVT (supraventricular tachycardia) Premature atrial contractions Premature ventricular contraction Sinus bradycardia Home Medications aspirin 81 mg tablet,delayed release 81 mg PO DAILY heart health 11/24/17 [History Last Taken 01/19/19 16:00] ramipril 10 mg capsule 10 mg PO BID HEART 01/19/19 [History Last Taken 01/19/19 21:00] albuterol sulfate 90 mcg/actuation aerosol inhaler (Ventolin HFA) 2 puff inhalation Q6H PRN sob 12/03/19 [History Last Taken Unknown] cholecalciferol (vitamin D3) 1,250 mcg (50,000 unit) capsule 1,250 mcg PO QWEEK 12/03/19 [History Last Taken Unknown] furosemide 20 mg tablet 20 mg PO DAILY PRN water pill 01/22/21 [History Last Taken Unknown] insulin NPH isoph U-100 human 100 unit/mL subcutaneous suspension (Novolin N NPH U-100 Insulin isophane) 15 - 20 unit subcut QAM 01/22/21 [History Last Taken Unknown] amlodipine 5 mg tablet (Norvasc) 5 mg PO DAILY #90 tabs 02/12/21 [Rx Last Taken Unknown] metoprolol tartrate 25 mg tablet 25 mg PO BID HEART #180 tabs 02/12/21 [Rx Last Taken Unknown] budesonide-formoterol HFA 160 mcg-4.5 mcg/actuation aerosol inhaler 2 puff inhalation BID 12/21/21 [History Last Taken Unknown] zolpidem 5 mg tablet 2.5 - 5 mg PO QHS PRN Insomnia 02/11/22 [History Last Taken Unknown] insulin glargine 100 unit/mL (3 mL) subcutaneous pen 22 - 24 unit subcut QHS DM 06/22/22 [History Last Taken Unknown] insulin lispro 100 unit/mL subcutaneous solution 3 - 6 unit subcut QAC 06/22/22 [History Last Taken Unknown] omeprazole magnesium 20 mg tablet,delayed release (Prilosec OTC) 20 mg PO DAILY 06/22/22 [History Last Taken Unknown] Allergy/AdvReac Type Severity Reaction Status Date / Time albuterol [From Ventolin HFA] Allergy Intermediate nausea, Verified 07/10/22 14:15 vomiting pravastatin Allergy Unknown unknown Verified 07/10/22 14:15 rosuvastatin [From Crestor] Allergy Unknown myalgias Verified 07/10/22 14:15 simvastatin Allergy Unknown unknown Verified 07/10/22 14:15 escitalopram Allergy Other Verified 07/10/22 14:15 hydrochlorothiazide Allergy Other Verified 07/10/22 14:15 Knlvccn-CHY-JdX Reductase AdvReac Severe myalgias Verified 07/10/22 14:15 Inhibitor [Emeqfah-Umq-Hra Reductase Inhibitor] codeine AdvReac Nausea Verified 07/10/22 14:15 naproxen [From Naprosyn] AdvReac Nausea Verified 07/10/22 14:15 Family History Mother Aortic stenosis Presence of permanent cardiac pacemaker Surgical History History of cholecystectomy History of tonsillectomy Social History household members: spouse Smoking Status: Former smoker alcohol intake: never substance use type: does not use ROS ROS ED Constitutional Constitutional ED: Reports chills and subjective Eyes Eyes: Denies change in vision or diplopia ENT ENT ED: Denies rhinorrhea or sore throat Cardiovascular Cardiovascular: Denies palpitations or racing heartbeat Respiratory/Chest Respiratory/Chest: Reports cough, dyspnea and dyspnea on exertion Gastrointestinal Gastrointestinal: Reports nausea and vomiting; Denies abdominal pain Genitourinary Genitourinary ED: Denies dysuria or hematuria Musculoskeletal Musculoskeletal: Reports myalgias; Denies arthralgias Integumentary Reports Abrasions and rash Neurologic Neurologic: Reports headache(s); Denies paresthesias, weakness or other Psychiatric Psychiatric: Denies anxiety or depression EXAM Physical Exam Const Vital Signs: 07/10/22 14:16 07/10/22 15:10 07/10/22 15:10 Temperature 97.4 F L 97.4 F L Temperature Source Temporal Temporal Pulse Rate 78 78 Respiratory Rate 18 18 Respiratory Effort Respiratory Pattern Blood Pressure 129/64 H 129/64 H Blood Pressure Mean 85 85 Pulse Ox 99 99 Oxygen Delivery Method Room Air Room Air Room Air Oxygen Flow Rate (L/min) 07/10/22 15:19 07/10/22 15:23 07/10/22 15:57 Temperature Temperature Source Pulse Rate Respiratory Rate 24 H Respiratory Effort Short of Breath Respiratory Pattern Tachypnea Blood Pressure Blood Pressure Mean Pulse Ox 91 84 Oxygen Delivery Method Room Air Room Air Oxygen Flow Rate (L/min) 07/10/22 15:59 07/10/22 16:28 07/10/22 16:30 Temperature 98.6 F Temperature Source Temporal Pulse Rate 87 92 Respiratory Rate 25 H 17 Respiratory Effort Respiratory Pattern Normal Blood Pressure 153/73 H Blood Pressure Mean 99 Pulse Ox 92 95 Oxygen Delivery Method Nasal Cannula Nasal Cannula Oxygen Flow Rate (L/min) 3 3 Positive well nourished General Appearance ED: Negative for pallor HEENT Reports moist mucous membranes Eyes PERRL Neck no lymphadenopathy Resp normal respiratory effort and clear to auscultation bilaterally Auscultation: Negative for rales, rhonchi or wheezes Cardio regular rate and regular rhythm GI normal to inspection, nondistended, normoactive bowel sounds Back/Spine no CVA tenderness Neuro oriented x3 and CN's II-XII intact bilaterally Sensorium / Orientation: alert Psych mental status grossly normal Skin no rashes or lesions noted General Skin Exam: Negative for jaundice or pallor MDM MDM MDM Narrative Medical decision making narrative: Patient presenting with shortness of breath and viral symptoms since yesterday. She has not had a fever at home. She states her albuterol inhaler did help at home. She was told she could only do this twice a day so she held off repeating this. On examination her lungs are clear. She was placed on oxygen because her pulse ox was at 94%. She reports at home her pulse ox has not been below 96%. She was placed on 3 L of oxygen via nasal cannula. Blood work is obtained and CBC shows no white blood cell count elevation. Hemoglobin monitor stable. Platelets are normal. She has lymphopenic. Renal function and electrolytes are normal. Glucose 253 without anion gap. Chest x-ray on my interpretation shows no acute cardiopulmonary process. Radiology interprets this and agrees. EKG shows normal sinus rhythm with a ventricular of 87 bpm without sign of ischemic change on my interpretation. No evidence of ischemia. Patient was given breathing treatments and Solu-Medrol to see if this would help her breathing as it did earlier. Rapid COVID and influenza are negative. After breathing treatments patient's pulse ox was removed and I was going to ambulate her on room air however she desatted to 80% just sitting in the bed. She is again placed on 3 L. Patient was discussed with the hospitalist for admission. Impression: 1. Dyspnea 2. Hypoxic respiratory failure 3. Nausea/vomiting Lab Data Attestation: I reviewed the patient's lab results. Labs: Laboratory Results - last 24 hr 07/10/22 07/10/22 07/10/22 15:15 15:15 16:30 WBC 5.5 RBC 4.74 Hgb 13.8 Hct 43.4 MCV 91.6 MCH 29.1 MCHC 31.8 L RDW Std Deviation 42.4 RDW Coeff of Madalyn 12.6 Plt Count 193 MPV 11.6 Immature Gran % (Auto) 0.400 Neut % (Auto) 83.5 H Lymph % (Auto) 6.3 L [place] % (Auto) 8.7 Eos % (Auto) 0.7 Baso % (Auto) 0.4 Absolute Neuts (auto) 4.6 Absolute Lymphs (auto) 0.35 L Nucleated RBC % 0 Differential Comment SCANNED D-Dimer Quant (PE/DVT) 0.52 H* Sodium 136 Potassium 3.8 Chloride 101 Carbon Dioxide 27.0 Anion Gap 8 BUN 19 H Creatinine 0.86 Estim Creat Clear Calc 58.16 Est GFR (MDRD) Af Amer 82 Est GFR (MDRD) Non-Af 68 BUN/Creatinine Ratio 22.1 H Glucose 253 H Calcium 8.8 Troponin I High Sens 07/10/22 16:30 WBC RBC Hgb Hct MCV MCH MCHC RDW Std Deviation RDW Coeff of Madalyn Plt Count MPV Immature Gran % (Auto) Neut % (Auto) Lymph % (Auto) [place] % (Auto) Eos % (Auto) Baso % (Auto) Absolute Neuts (auto) Absolute Lymphs (auto) Nucleated RBC % Differential Comment D-Dimer Quant (PE/DVT) Sodium Potassium Chloride Carbon Dioxide Anion Gap BUN Creatinine Estim Creat Clear Calc Est GFR (MDRD) Af Amer Est GFR (MDRD) Non-Af BUN/Creatinine Ratio Glucose Calcium Troponin I High Sens 12 Radiography Diagnostic Testing: Clinical Impression(s) from Imaging Studies Chest X-Ray 07/10/22 15:25 IMPRESSION: There are no acute findings. Electronically Signed: Mohsen Ren MD at 15:44 EST Reading Location ID and State: [facility] / [place] , Service support , Discharge Plan Triage Chief Complaint: General Illness ED Provider: Vazquez Harvey Dx/Rx/DC Orders Prescriptions: No Action aspirin 81 mg tablet,delayed release (DR/EC) 81 mg PO DAILY cholecalciferol (vitamin D3) 1,250 mcg (50,000 unit) capsule 1,250 mcg PO QWEEK albuterol sulfate [Ventolin HFA] 90 mcg/actuation HFA aerosol inhaler 2 puff INHALATION Q6H PRN (Reason: sob) furosemide 20 mg tablet 20 mg PO DAILY PRN (Reason: water pill) Novolin N NPH U-100 Insulin 100 unit/mL suspension 15 - 20 unit subcut QAM insulin lispro 100 unit/mL solution 3 - 6 unit subcut QAC Label Comments: INJECT 3 TO 10 UNITS SUBCUTANEOUSLY BEFORE MEALS DIRECTED metoprolol tartrate 25 mg tablet 25 mg PO BID Qty: 180 3RF amlodipine [Norvasc] 5 mg tablet 5 mg PO DAILY Qty: 90 3RF budesonide-formoterol 160-4.5 mcg/actuation HFA aerosol inhaler 2 puff inhalation BID omeprazole magnesium [Prilosec OTC] 20 mg tablet,delayed release (DR/EC) 20 mg PO DAILY ramipril 10 MG capsule 10 mg PO BID Label Comments: TAKE 1 CAPSULE BY MOUTH TWICE DAILY insulin glargine 100 unit/mL (3 mL) insulin pen 22 - 24 unit subcut QHS zolpidem 5 mg Tablet 2.5 - 5 mg PO QHS PRN (Reason: Insomnia) Primary Care Provider: Luzma Palencia Referrals: Luzma Palencia MD [Primary Care Provider] -
[2022-07-10] MEDS: Ipratropium/Albuterol Sulfate 3 ML AMPUL.NEB INHALATION ×2 (16:29→19:46)
[2022-07-10] MEDS: MethylPREDNISolone 125 MG/2 ML Vial IV (16:31)
--- NOTE | 2022-07-10 16:35 | ED.RN ---
Pt unable to ambulate without wheelchair and pt 80% on RA resting.
[2022-07-10 16:51] LABS: D-Dimer Quantitative (DVT/PE) 0.52 FEU/ug/m (0.27-0.49)
[2022-07-10 17:01] LABS: Troponin-I HS 12 pg/mL (3.0-54.0)
--- NOTE | 2022-07-10 17:23 | HP.PCM.HOS_ITS ---
HPI - General General Date of Admission: 07/10/22 Date of Service: 07/10/22 Chief Complaint: Generalized malaise HPI Narrative ATTILA KIDD, is a [age] F with past medical history signal for hypertension, diabetes mellitus type 2 who presents with generalized malaise. Patient symptoms have been ongoing for the past week.. She complains of fatigue, subjective fever and chills as well as nausea and vomiting. Patient also did experience shortness of breath as well as cough which was nonproductive. In view of worsening symptoms patient presented to the emergency department. Her initial diagnostic work-up including rapid COVID and influenza came back negative patient was however found to be hypoxic with oxygen saturation in the mid 80s. Was placed on supplemental oxygen. D-dimer obtained came back normal corrected for her age. Subsequently admitted for further work-up in the hospital [facility] Medical History Abnormal EKG Asthma Bimalleolar ankle fracture Charcot's joint of left foot Diabetes mellitus, type II Essential hypertension GERD (gastroesophageal reflux disease) History of DVT (deep vein thrombosis) Hyperlipidemia Hypertension THAIS (obstructive sleep apnea) Paroxysmal SVT (supraventricular tachycardia) Premature atrial contractions Premature ventricular contraction Sinus bradycardia Home Medications aspirin 81 mg tablet,delayed release 81 mg PO DAILY [facility] 11/24/17 [History Last Taken 01/19/19 16:00] ramipril 10 mg capsule 10 mg PO BID HEART 01/19/19 [History Last Taken 01/19/19 21:00] albuterol sulfate 90 mcg/actuation aerosol inhaler (Ventolin HFA) 2 puff inhalation Q6H PRN sob 12/03/19 [History Last Taken Unknown] cholecalciferol (vitamin D3) 1,250 mcg (50,000 unit) capsule 1,250 mcg PO QWEEK 12/03/19 [History Last Taken Unknown] furosemide 20 mg tablet 20 mg PO DAILY PRN water pill 01/22/21 [History Last Taken Unknown] insulin NPH isoph U-100 human 100 unit/mL subcutaneous suspension (Novolin N NPH U-100 Insulin isophane) 15 - 20 unit subcut QAM 01/22/21 [History Last Taken Unknown] amlodipine 5 mg tablet (Norvasc) 5 mg PO DAILY #90 tabs 02/12/21 [Rx Last Taken Unknown] metoprolol tartrate 25 mg tablet 25 mg PO BID HEART #180 tabs 02/12/21 [Rx Last Taken Unknown] budesonide-formoterol HFA 160 mcg-4.5 mcg/actuation aerosol inhaler 2 puff inhalation BID 12/21/21 [History Last Taken Unknown] zolpidem 5 mg tablet 2.5 - 5 mg PO QHS PRN Insomnia 02/11/22 [History Last Taken Unknown] insulin glargine 100 unit/mL (3 mL) subcutaneous pen 22 - 24 unit subcut QHS DM 06/22/22 [History Last Taken Unknown] insulin lispro 100 unit/mL subcutaneous solution 3 - 6 unit subcut QAC 06/22/22 [History Last Taken Unknown] omeprazole magnesium 20 mg tablet,delayed release (Prilosec OTC) 20 mg PO DAILY 06/22/22 [History Last Taken Unknown] Allergy/AdvReac Type Severity Reaction Status Date / Time albuterol [From Ventolin HFA] Allergy Intermediate nausea, Verified 07/10/22 14:15 vomiting pravastatin Allergy Unknown unknown Verified 07/10/22 14:15 rosuvastatin [From Crestor] Allergy Unknown myalgias Verified 07/10/22 14:15 simvastatin Allergy Unknown unknown Verified 07/10/22 14:15 escitalopram Allergy Other Verified 07/10/22 14:15 hydrochlorothiazide Allergy Other Verified 07/10/22 14:15 Kewsvlv-UMN-RgO Reductase AdvReac Severe myalgias Verified 07/10/22 14:15 Inhibitor [Dogmzzg-Oab-Wbd Reductase Inhibitor] codeine AdvReac Nausea Verified 07/10/22 14:15 naproxen [From Naprosyn] AdvReac Nausea Verified 07/10/22 14:15 Family History Mother Aortic stenosis Presence of permanent cardiac pacemaker Surgical History History of cholecystectomy History of tonsillectomy Social History household members: spouse Smoking Status: Former smoker alcohol intake: never substance use type: does not use ROS ROS Narrative GENERAL: Generalized malaise, anorexia HEENT: denies headache, sinus congestion, RESPIRATORY: shortness of breath, dyspnea on exertion CARDIAC: denies chest pain, palpitations, orthopnea, PND GASTROINTESTINAL: , nausea, vomiting, GENITOURINARY: denies dysuria, urgency, frequency, EXTREMITY: denies swelling MUSCULOSKELETAL: denies current joint pain or tenderness NEUROLOGIC: denies focal numbness, weakness, tingling HEMATOLOGIC: denies easy bruising and/or hemorrhage INTEGUMENT: denies rashes PSYCHIATRIC: denies suicidal or homicidal ideation Vital Signs Vital Signs Vital Signs: 07/10/22 14:16 07/10/22 15:10 07/10/22 15:10 Temperature 97.4 F L 97.4 F L Temperature Source Temporal Temporal Pulse Rate 78 78 Respiratory Rate 18 18 Respiratory Effort Respiratory Pattern Blood Pressure 129/64 H 129/64 H Blood Pressure Mean 85 85 Pulse Ox 99 99 Oxygen Delivery Method Room Air Room Air Room Air Oxygen Flow Rate (L/min) 07/10/22 15:19 07/10/22 15:23 07/10/22 15:57 Temperature Temperature Source Pulse Rate Respiratory Rate 24 H Respiratory Effort Short of Breath Respiratory Pattern Tachypnea Blood Pressure Blood Pressure Mean Pulse Ox 91 84 Oxygen Delivery Method Room Air Room Air Oxygen Flow Rate (L/min) 07/10/22 15:59 07/10/22 16:28 07/10/22 16:30 Temperature 98.6 F Temperature Source Temporal Pulse Rate 87 92 Respiratory Rate 25 H 17 Respiratory Effort Respiratory Pattern Normal Blood Pressure 153/73 H Blood Pressure Mean 99 Pulse Ox 92 95 Oxygen Delivery Method Nasal Cannula Nasal Cannula Oxygen Flow Rate (L/min) 3 3 Weight Weight: 152.407 kg Body Mass Index (BMI) 49.6 Physical Exam Narrative GENERAL: Patient appears ill looking HEENT: Atraumatic; normocephalic EYES; Anicteric, Normal Conjunctiva NECK; supple, normal thyroid, RESPIRATORY: Diminished to auscultation CARDIOVASCULAR: Regular S1 S2, GI: soft, normoactive bowel sounds, : No Renal angle tenderness; EXTREMITIES: No edema, no clubbing, MUSCULOSKELETAL: no muscle wasting NEURO: Awake; no lateralizing signs. SKIN: No Rash PSYCH; Flat affect Results Lab / Micro Data Result Diagrams: 07/10/22 15:15 07/10/22 15:15 Labs: Laboratory Results - last 24 hr 07/10/22 15:15: WBC 5.5, RBC 4.74, Hgb 13.8, Hct 43.4, MCV 91.6, MCH 29.1, MCHC 31.8 L, RDW Std Deviation 42.4, RDW Coeff of Madalyn 12.6, Plt Count 193, MPV 11.6, Immature Gran % (Auto) 0.400, Neut % (Auto) 83.5 H, Lymph % (Auto) 6.3 L, [place] % (Auto) 8.7, Eos % (Auto) 0.7, Baso % (Auto) 0.4, Absolute Neuts (auto) 4.6, Absolute Lymphs (auto) 0.35 L, Nucleated RBC % 0, Differential Comment SCANNED 07/10/22 15:15: Sodium 136, Potassium 3.8, Chloride 101, Carbon Dioxide 27.0, Anion Gap 8, BUN 19 H, Creatinine 0.86, Estim Creat Clear Calc 58.16, Est GFR (MDRD) Af Amer 82, Est GFR (MDRD) Non-Af 68, BUN/Creatinine Ratio 22.1 H, Glucose 253 H, Calcium 8.8 07/10/22 16:30: D-Dimer Quant (PE/DVT) 0.52 H* 07/10/22 16:30: Troponin I High Sens 12 Micro: Microbiology 07/10/22 15:13 Nasal Secretion SARS-CoV-2 & FLU Antigen (Rapid) - Final Radiology Impression Chest X-Ray 07/10/22 15:25 IMPRESSION: There are no acute findings. Electronically Signed: Mohsen Ren MD at 15:44 EST Reading Location ID and State: [facility] / [place] , Service support , Assessment & Plan Assessment/Plan (1) Hypoxia: PLAN: Plan Patient is a 76-year-old lady presenting with a week history of progressive generalized malaise found to be hypoxic in the ER 1. Acute hypoxia ? Etiology not clear at this point checks x-ray did not show any infiltrate patient rapid influenza and COVID came back negative however do still entertain high suspicion for viral illness. Subsequently placed on supplemental oxygen admitted to regular nursing floor requested for respiratory viral panel 2. Diabetes mellitus type 2 ? Patient blood glucose control not optimal did continue with home regimen with plans to adjust doses as needed. She was also placed on Accu-Cheks before meals and at bedtime with sliding scale coverage 3. Hypertension - Blood pressure controlled, home medications continued with dose adjustment as needed 4. GERD ? On omeprazole did continue 5. Cardiac arrhythmias including PSVT as well as PACs and PVCs ? Patient followed by cardiology on beta-blockers did continue 6. Class III obesity with BMI of 49.6 ? Weight loss advised 7. Obstructive sleep apnea ? PAP therapy at night 8. Mild intermittent asthma ? Patient was placed on bronchodilator treatment in addition to systemic steroid 9. DVT prophylaxis ? Lovenox 40 mg SC twice daily Advance planning; did discuss with the patient and family regarding advanced directives as well as CODE STATUS. Did explain the various scenarios involved ( FULL CODE, DNR CCA, DNR CCA with no intubation, and DNR CC and what each meant) patient elected remain full code with CPR and intubation if needed. Order was placed. Time spent on discussion 18 minutes. Charges/Coding Visit Charges Inpatient E&M: 05798 Init Hosp L3 Procedures Hospitalists Procedures: 08978 Advncd Care Plan 30 Min
--- NOTE | 2022-07-10 17:35 | NURSING ---
302 KITTOE HYPOXIC RESP FAILURE
[2022-07-10] MEDS: 0.9% Normal Saline 1,000 ML 75 ML IV (19:18)
--- NOTE | 2022-07-10 21:01 | NURSING ---
per conversation with pt's , symptoms started yesterday July 09.
[2022-07-10] MEDS: Ramipril 10 MG Capsule PO (22:58)
[2022-07-10] MEDS: Oseltamivir Phosphate 30 MG Capsule PO (22:58)
[2022-07-10] MEDS: 0.9% Saline Lock 10 ML Syringe IV (22:58)
[2022-07-10] MEDS: Metoprolol Tartrate 25 MG Tablet PO (22:58)
[2022-07-10] MEDS: Enoxaparin 40 MG/0.4 ML Syringe SC (22:59)
[2022-07-10 23:30] LABS: Bedside Glucose 454 mg/dL (74-106)
[2022-07-10] MEDS: Insulin Glargine-YFGN 100 UNIT/ML Pen 24 UNIT SC (23:35)
--- NOTE | 2022-07-10 23:53 | PCM.HOSP.N ---
Hospitalist Note Staff reported Influenza A positive. Renal fx reviewed. Tamiflu initiated.
[2022-07-11] VITALS (13 sets, daily range): BP systolic 124–142; BP diastolic 56–64; PULSE 84–107; RESP 16–20; TEMP 37.1–37.4; O2SAT 92–94
[2022-07-11] MEDS: Insulin Lispro 100 UNIT/ML INSULN.PEN 20 UNIT SC (00:04)
[2022-07-11 00:16] LABS: Glucose 546 mg/dL (74-106)
[2022-07-11] MEDS: Insulin Lispro 100 UNIT/ML INSULN.PEN SC ×4 (06:05→20:43)
[2022-07-11] MEDS: 0.9% Normal Saline 1,000 ML 75 ML IV ×2 (06:05→19:26)
[2022-07-11] MEDS: 0.9% Saline Lock 10 ML Syringe IV (06:10)
[2022-07-11 06:45] LABS: Absolute Lymphocyte Count 0.31 X10^3/uL (0.83-4.51); Absolute Neutrophil Count 3.6 X10^3/uL (2.0-7.7); Hematocrit 38.1 % (37-47); Lymphocyte # 0.31 X10^3/ul (0.83-4.51); Lymphocyte % 7.6 % (19-41); Mean Corp Hgb Conc 31.5 g/dL (32-36); Mean Corpuscular Hgb 29.2 pg (27.0-32.0); Mean Corpuscular Volume 92.7 fL (81-99); Mean Platelet Vol. 11.7 fl (6.2-12.0); Monocyte# 0.17 X10^3/uL; Monocyte% 4.2 % (0-10); NRBC Flagged by Analyzer 0 % (0-5); POSITIVE DIFFERENTIAL YES; Platelet Count 177 K/mm3 (150-450); RBC Distribution Width CV 12.8 % (11.6-14.6); RBC Distribution Width SD 43.5 fl (35.1-43.9); Red Blood Count 4.11 M/mm3 (4.2-5.4); White Blood Count 4.1 K/mm3 (4.4-11.0)
[2022-07-11 06:46] LABS: Differential Indicated SCAN CRITERIA MET
[2022-07-11 07:15] LABS: Anion Gap 7 (5-15); BUN 27 mg/dL (7-18); Calcium,Total 8.4 mg/dL (8.5-10.1); Chloride 103 mmol/L (98-107); EST Glomerular Filtration Rate 57 mL/min (>60); Est Glom Filt Rate - Afr Amer 69 mL/min (>60); Estimated Creatinine Clearance 50.02 ml/min; Glucose 418 mg/dL (74-106); Magnesium 2.1 mg/dL (1.6-2.6); Phosphorus 2.7 mg/dL (2.5-4.9); Potassium 3.9 mmol/L (3.5-5.1); Sodium Level 136 mmol/L (136-145)
[2022-07-11 07:21] LABS: Bedside Glucose 399 mg/dL (74-106)
[2022-07-11] MEDS: Ipratropium/Albuterol Sulfate 3 ML AMPUL.NEB INHALATION ×5 (07:22→23:27)
--- NOTE | 2022-07-11 07:22 | PCM.PN.HOSP ---
Subjective Subjective Patient is a 76-year-old lady presenting with a week history of progressive generalized malaise found to be hypoxic in the ER Patient viral respiratory panel came back positive for influenza A, Tamiflu added to patient's therapy Objective Data Objective Data Vital Signs: Vital Signs Temp Pulse Resp BP Pulse Ox O2 Del Method O2 Flow Rate 99.3 F H 84 20 H 133/60 H 94 Nasal Cannula 2 07/11/22 06:11 07/11/22 06:11 07/11/22 06:11 07/11/22 06:11 07/11/22 06:11 07/11/22 06:16 07/11/22 06:16 Oxygen Flow Rate (L/min) 2 Oxygen Delivery Method Nasal Cannula Weight: 152.407 kg Body Mass Index (BMI) 49.6 Intake & Output: Intake and Output for Last 24 Hours 07/09/22 07/10/22 07/11/22 23:59 23:59 23:59 Intake Total 250 / 250 1008.75 / 1008.75 Balance 250 / 250 1008.75 / 1008.75 Lab / Micro Data Result Diagrams: 07/11/22 06:36 07/11/22 06:36 Labs: Laboratory Results - last 24 hr 07/10/22 15:15: WBC 5.5, RBC 4.74, Hgb 13.8, Hct 43.4, MCV 91.6, MCH 29.1, MCHC 31.8 L, RDW Std Deviation 42.4, RDW Coeff of Madalyn 12.6, Plt Count 193, MPV 11.6, Immature Gran % (Auto) 0.400, Neut % (Auto) 83.5 H, Lymph % (Auto) 6.3 L, [place] % (Auto) 8.7, Eos % (Auto) 0.7, Baso % (Auto) 0.4, Absolute Neuts (auto) 4.6, Absolute Lymphs (auto) 0.35 L, Nucleated RBC % 0, Differential Comment SCANNED 07/10/22 15:15: Sodium 136, Potassium 3.8, Chloride 101, Carbon Dioxide 27.0, Anion Gap 8, BUN 19 H, Creatinine 0.86, Estim Creat Clear Calc 58.16, Est GFR (MDRD) Af Amer 82, Est GFR (MDRD) Non-Af 68, BUN/Creatinine Ratio 22.1 H, Glucose 253 H, Calcium 8.8 07/10/22 16:30: D-Dimer Quant (PE/DVT) 0.52 H* 07/10/22 16:30: Troponin I High Sens 12 07/10/22 18:02: COVID-19 ([facility]) Not Detected 07/10/22 23:05: POC Glucose 454 H* 07/10/22 23:10: Glucose 546 H* 07/11/22 06:03: POC Glucose 399 H 07/11/22 06:36: WBC 4.1 L, RBC 4.11 L, Hgb 12.0, Hct 38.1, MCV 92.7, MCH 29.2, MCHC 31.5 L, RDW Std Deviation 43.5, RDW Coeff of Madalyn 12.8, Plt Count 177, MPV 11.7, Immature Gran % (Auto) 0.200, Neut % (Auto) 88.0 H, Lymph % (Auto) 7.6 L, [place] % (Auto) 4.2, Eos % (Auto) 0.0, Baso % (Auto) 0.0, Absolute Neuts (auto) 3.6, Absolute Lymphs (auto) 0.31 L, Nucleated RBC % 0 07/11/22 06:36: Sodium 136, Potassium 3.9, Chloride 103, Carbon Dioxide 26.0, Anion Gap 7, BUN 27 H, Creatinine 1.00, Estim Creat Clear Calc 50.02, Est GFR (MDRD) Af Amer 69, Est GFR (MDRD) Non-Af 57 L, BUN/Creatinine Ratio 27.0 H, Glucose 418 H, Calcium 8.4 L, Phosphorus 2.7, Magnesium 2.1 Micro: Microbiology 07/10/22 17:43 Mucosa - Nasopharyngeal Respiratory Panel (PCR) - Final Influenza A (Subtype H1) 07/10/22 15:13 Nasal Secretion SARS-CoV-2 & FLU Antigen (Rapid) - Final Radiography Diagnostic Testing: Radiology Impression Chest X-Ray 07/10/22 15:25 IMPRESSION: There are no acute findings. Electronically Signed: Mohsen Ren MD at 15:44 EST , Physical Exam Narrative GENERAL: Patient appears ill looking HEENT: Atraumatic; normocephalic EYES; Anicteric, Normal Conjunctiva NECK; supple, normal thyroid, RESPIRATORY: Diminished to auscultation CARDIOVASCULAR: Regular S1 S2, GI: soft, normoactive bowel sounds, : No Renal angle tenderness; EXTREMITIES: No edema, no clubbing, MUSCULOSKELETAL: no muscle wasting NEURO: Awake; no lateralizing signs. SKIN: No Rash PSYCH; Flat affect Assessment & Plan Assessment/Plan (1) Hypoxia: PLAN: Plan Patient is a 76-year-old lady presenting with a week history of progressive generalized malaise found to be hypoxic in the ER 1. Acute hypoxia ? Etiology not clear at this point checks x-ray did not show any infiltrate patient rapid influenza and COVID came back negative however do still entertain high suspicion for viral illness. Subsequently placed on supplemental oxygen admitted to regular nursing floor requested for respiratory viral panel -07/11/2022; Patient viral respiratory panel came back positive for influenza A, Tamiflu added to patient's therapy 2. Diabetes mellitus type 2 ? Patient blood glucose control not optimal did continue with home regimen with plans to adjust doses as needed. She was also placed on Accu-Cheks before meals and at bedtime with sliding scale coverage 3. Hypertension - Blood pressure controlled, home medications continued with dose adjustment as needed 4. GERD ? On omeprazole did continue 5. Cardiac arrhythmias including PSVT as well as PACs and PVCs ? Patient followed by cardiology on beta-blockers did continue 6. Class III obesity with BMI of 49.6 ? Weight loss advised 7. Obstructive sleep apnea ? PAP therapy at night 8. Mild intermittent asthma ? Patient was placed on bronchodilator treatment in addition to systemic steroid 9. DVT prophylaxis ? Lovenox 40 mg SC twice daily Charges/Coding Visit Charges Inpatient E&M: 61729 Subs Hosp L2
[2022-07-11 07:24] LABS: Hemoglobin A1c 7.6 % (3.8-5.6)
[2022-07-11] MEDS: Ramipril 10 MG Capsule PO ×2 (08:26→20:50)
[2022-07-11] MEDS: Pantoprazole Sodium 20 MG Tablet PO (08:26)
[2022-07-11] MEDS: Metoprolol Tartrate 25 MG Tablet PO ×2 (08:26→20:50)
[2022-07-11] MEDS: Azithromycin 250 MG Tablet 500 MG PO (08:26)
[2022-07-11] MEDS: Aspirin E.C. 81 MG Tablet PO (08:26)
[2022-07-11] MEDS: Oseltamivir Phosphate 30 MG Capsule PO ×2 (08:27→20:50)
[2022-07-11] MEDS: amLODIPine 5 MG Tablet PO (08:27)
[2022-07-11] MEDS: Enoxaparin 40 MG/0.4 ML Syringe SC ×2 (08:27→20:50)
[2022-07-11 12:11] LABS: Bedside Glucose 385 mg/dL (74-106)
[2022-07-11 17:15] LABS: Bedside Glucose 321 mg/dL (74-106)
[2022-07-11] MEDS: Insulin Glargine-YFGN 100 UNIT/ML Pen 24 UNIT SC (20:42)
[2022-07-12] VITALS (12 sets, daily range): BP systolic 122–140; BP diastolic 60–76; PULSE 75–91; RESP 18; TEMP 36.8–37.1; O2SAT 92–95
[2022-07-12 00:11] LABS: Bedside Glucose 380 mg/dL (74-106)
[2022-07-12] MEDS: Ipratropium/Albuterol Sulfate 3 ML AMPUL.NEB INHALATION ×4 (07:02→19:28)
[2022-07-12] MEDS: Insulin Lispro 100 UNIT/ML INSULN.PEN SC ×4 (07:40→23:53)
[2022-07-12] MEDS: predniSONE 20 MG Tablet 40 MG PO (07:40)
[2022-07-12] MEDS: Aspirin E.C. 81 MG Tablet PO (07:40)
[2022-07-12] MEDS: Insulin NPH Human 100 UNITS/ML PEN 13 UNITS SC (07:41)
--- NOTE | 2022-07-12 08:00 | PCM.PN.HOSP ---
Subjective Subjective Patient seen still has a cough which is nonproductive. Blood glucose levels not well controlled. Adjusted insulin levels and discontinued prednisone Objective Data Objective Data Vital Signs: Vital Signs Temp Pulse Resp BP Pulse Ox O2 Del Method O2 Flow Rate 98.3 F 88 18 140/72 H 95 Nasal Cannula 2 07/12/22 06:24 07/12/22 07:02 07/12/22 07:02 07/12/22 06:24 07/12/22 07:02 07/12/22 07:02 07/12/22 07:02 Oxygen Flow Rate (L/min) 2 Oxygen Delivery Method Nasal Cannula Weight: 152.407 kg Body Mass Index (BMI) 49.6 Intake & Output: Intake and Output for Last 24 Hours 07/10/22 07/11/22 07/12/22 23:59 23:59 23:59 Intake Total 250 / 250 2408.75 / 2408.75 Balance 250 / 250 2408.75 / 2408.75 Lab / Micro Data Result Diagrams: 07/11/22 06:36 07/11/22 06:36 Labs: Laboratory Results - last 24 hr 07/11/22 11:29: POC Glucose 385 H 07/11/22 16:24: POC Glucose 321 H 07/11/22 20:40: POC Glucose 380 H Micro: Microbiology 07/10/22 17:43 Mucosa - Nasopharyngeal Respiratory Panel (PCR) - Final Influenza A (Subtype H1) 07/10/22 15:13 Nasal Secretion SARS-CoV-2 & FLU Antigen (Rapid) - Final Physical Exam Narrative GENERAL: Patient appears ill looking HEENT: Atraumatic; normocephalic EYES; Anicteric, Normal Conjunctiva NECK; supple, normal thyroid, RESPIRATORY: Diminished to auscultation CARDIOVASCULAR: Regular S1 S2, GI: soft, normoactive bowel sounds, : No Renal angle tenderness; EXTREMITIES: No edema, no clubbing, MUSCULOSKELETAL: no muscle wasting NEURO: Awake; no lateralizing signs. SKIN: No Rash PSYCH; Flat affect Assessment & Plan Assessment/Plan (1) Hypoxia: PLAN: Plan Patient is a 76-year-old lady presenting with a week history of progressive generalized malaise found to be hypoxic in the ER 1. Acute hypoxia ? Etiology not clear at this point checks x-ray did not show any infiltrate patient rapid influenza and COVID came back negative however do still entertain high suspicion for viral illness. Subsequently placed on supplemental oxygen admitted to regular nursing floor requested for respiratory viral panel -07/11/2022; Patient viral respiratory panel came back positive for influenza A, Tamiflu added to patient's therapy ? 07/12/2022; patient remains on 2 L/min flow oxygen. 2. Diabetes mellitus type 2 ? Patient blood glucose control not optimal did continue with home regimen with plans to adjust doses as needed. She was also placed on Accu-Cheks before meals and at bedtime with sliding scale coverage ? 07/12/2022; patient blood glucose control not optimal discontinued prednisone adjusted insulin levels 3. Hypertension - Blood pressure controlled, home medications continued with dose adjustment as needed 4. GERD ? On omeprazole did continue 5. Cardiac arrhythmias including PSVT as well as PACs and PVCs ? Patient followed by cardiology on beta-blockers did continue 6. Class III obesity with BMI of 49.6 ? Weight loss advised 7. Obstructive sleep apnea ? PAP therapy at night 8. Mild intermittent asthma ? Patient was placed on bronchodilator treatment in addition to systemic steroid 9. DVT prophylaxis ? Lovenox 40 mg SC twice daily Charges/Coding Visit Charges Inpatient E&M: 72350 Subs Hosp L2
[2022-07-12] MEDS: 0.9% Normal Saline 1,000 ML 75 ML IV (08:06)
[2022-07-12 08:25] LABS: Bedside Glucose 384 mg/dL (74-106)
[2022-07-12] MEDS: Enoxaparin 40 MG/0.4 ML Syringe SC ×2 (10:15→23:53)
[2022-07-12] MEDS: Ramipril 10 MG Capsule PO ×2 (10:15→23:53)
[2022-07-12] MEDS: Oseltamivir Phosphate 30 MG Capsule PO ×2 (10:15→23:53)
[2022-07-12] MEDS: amLODIPine 5 MG Tablet PO (10:15)
[2022-07-12] MEDS: Metoprolol Tartrate 25 MG Tablet PO ×2 (10:15→23:53)
[2022-07-12] MEDS: Pantoprazole Sodium 20 MG Tablet PO (10:15)
[2022-07-12] MEDS: Insulin Glargine-YFGN 100 UNIT/ML Pen 24 UNIT SC ×2 (10:16→23:54)
[2022-07-12 17:35] LABS: Bedside Glucose 353 mg/dL (74-106)
[2022-07-12 22:01] LABS: Bedside Glucose 271 mg/dL (74-106)
[2022-07-13] VITALS (8 sets, daily range): BP systolic 121–139; BP diastolic 65–77; PULSE 70–85; RESP 16–18; TEMP 36.6–37.2; O2SAT 91–98
[2022-07-13 00:51] LABS: Bedside Glucose 228 mg/dL (74-106)
[2022-07-13 06:30] LABS: Bedside Glucose 48 mg/dL (74-106)
[2022-07-13 06:51] LABS: Bedside Glucose 56 mg/dL (74-106)
[2022-07-13 07:11] LABS: Bedside Glucose 93 mg/dL (74-106)
[2022-07-13] MEDS: Ipratropium/Albuterol Sulfate 3 ML AMPUL.NEB INHALATION ×4 (07:12→18:59)
[2022-07-13 07:35] LABS: Bedside Glucose 451 mg/dL (74-106)
[2022-07-13 07:35] LABS: Bedside Glucose 431 mg/dL (74-106)
[2022-07-13] MEDS: Oseltamivir Phosphate 30 MG Capsule PO (09:20)
[2022-07-13] MEDS: Enoxaparin 40 MG/0.4 ML Syringe SC (09:21)
[2022-07-13] MEDS: Aspirin E.C. 81 MG Tablet PO (09:21)
[2022-07-13] MEDS: Metoprolol Tartrate 25 MG Tablet PO (09:21)
[2022-07-13] MEDS: Pantoprazole Sodium 20 MG Tablet PO (09:21)
[2022-07-13] MEDS: amLODIPine 5 MG Tablet PO (09:21)
[2022-07-13] MEDS: Ramipril 10 MG Capsule PO (09:21)
[2022-07-13 12:00] LABS: Bedside Glucose 146 mg/dL (74-106)
--- NOTE | 2022-07-13 13:40 | CASEMGMT ---
DEONNA MARKS LEAK INSPECTOR CM to room to meet with patient for initial transition planning/care coordination assessment. DEONNA MARKS introduced self and role at [facility].? Pt voices understanding and consents to assessment at this time.? Pt sitting on edge of bed in no distress at this time.? @ bedside. Pt is A/O at this time and answers all questions appropriately.?? Care providers, pharmacy, and demographics verified/updated at this time. PCP: Dr Palencia Specialists: Dr Lott-cardiology, Dr Marin-ortho Preferred Pharmacy: [facility] Retail Insurance: [employer] Prescription Benefit:? Yes Living Will/HPOA:? Has both LW and HCPOA, who is her LNOK: , Elijah Living Arrangements: Lives w/ in one-story home w/basement. Ramp entrance. Pt states she never goes to the basement. Pt is independent w/ADL's and IADL's and managers her own medications. does help her in and out of the shower. Transportation: DME: States has the following DME:? shower chair, walker, W/C, functioning glucometer w/supplies and has all insulin needed, PAP, and pulse ox, and leg braces. Pt does not have home O2. Pt and would like [employer] for home O2, should pt qualify for O2 @ d/c. ? Pt states no need for further DME at this time.? HHC/SNF: Hx of [facility] either TCU or RU and has had hx of HHC. Pt declines wanting any HHC @ d/c. She was made aware, should she change her mind @ d/c, to discuss options w/her PCP. Pt wishes to return home and states has no concerns with going home at time of discharge.? CM to follow for home oxygen needs and any further discharge planning/needs.? Pt voices no further concerns/needs at this time.? Advised pt to ask for CM if any further questions/concerns/needs arise.? Voices understanding. PLAN: ?Home w/spousal support and discharge plans in place. Follow for any O2 needs @ d/c. Omi AMADOR RN, CM
[2022-07-13 13:53] LABS: Pathologist Review Reviewed
[2022-07-13] MEDS: guaiFENesin 10 ML UDC (200MG/10ML) 20 ML PO (16:31)
[2022-07-13 17:00] LABS: Bedside Glucose 147 mg/dL (74-106)
--- NOTE | 2022-07-13 19:36 | PCM.PN.HOSP ---
Subjective Subjective Patient was seen and examined today, she is still requiring supplemental oxygen, on auscultation of the lungs, there are scattered expiratory wheezes noted to be present. I do not feel it is in the patient's best interest to go home today, I have added budesonide aerosols to the patient's medications, I will reevaluate her tomorrow for possible discharge. Objective Data Objective Data Vital Signs: Vital Signs Temp Pulse Resp BP Pulse Ox O2 Del Method O2 Flow Rate 98 F 76 16 139/77 H 95 Nasal Cannula 2 07/13/22 14:00 07/13/22 19:00 07/13/22 19:00 07/13/22 14:00 07/13/22 14:00 07/13/22 14:23 07/13/22 14:23 Oxygen Flow Rate (L/min) 2 Oxygen Delivery Method Nasal Cannula Weight: 152.407 kg Body Mass Index (BMI) 49.6 Intake & Output: Intake and Output for Last 24 Hours 07/11/22 07/12/22 07/13/22 23:59 23:59 23:59 Intake Total 2408.75 / 2408.75 1949 Balance 2408.75 / 2408.75 1949 Lab / Micro Data Result Diagrams: 07/11/22 06:36 07/11/22 06:36 Labs: Laboratory Results - last 24 hr 07/11/22 06:36: Diff Path Review Reviewed 07/12/22 11:47: POC Glucose 451 H* 07/12/22 11:49: POC Glucose 431 H 07/12/22 21:33: POC Glucose 271 H 07/13/22 00:31: POC Glucose 228 H 07/13/22 06:13: POC Glucose 48 L 07/13/22 06:30: POC Glucose 56 L 07/13/22 06:49: POC Glucose 93 07/13/22 11:26: POC Glucose 146 H 07/13/22 16:28: POC Glucose 147 H Micro: Microbiology 07/11/22 11:30 Sputum, Expectorated/Coughed Gram Stain - Final 07/11/22 11:30 Sputum, Expectorated/Coughed Respiratory Culture - Final Mixed normal respiratory lawanda. No Streptococcus pneumoniae, beta-hemolytic Streptococcus or Staphylococcus aureus isolated. 07/10/22 17:43 Mucosa - Nasopharyngeal Respiratory Panel (PCR) - Final Influenza A (Subtype H1) 07/10/22 15:13 Nasal Secretion SARS-CoV-2 & FLU Antigen (Rapid) - Final Physical Exam Const alert, oriented x3, no apparent distress and average body habitus General Appearance: cooperative, well kempt and well developed Orientation / Consciousness: awake, oriented to person, oriented to place and oriented to time HEENT normocephalic, head/scalp atraumatic and moist oral mucous membranes Eyes PERRL, EOMs intact bilaterally and conjunctivae normal Neck supple, no JVD, thyroid normal and no carotid bruits General: trachea midline Resp normal respiratory effort, no retractions and no use of accessory muscles Resp Narrative: Expiratory wheezes are noted bilaterally Auscultation: wheezes; Negative for rales or rhonchi Cardio regular rate, regular rhythm, S1 normal heart sound, S2 normal heart sound, no murmurs, no rub and no gallops GI normal to inspection, nondistended, normoactive bowel sounds, soft to palpation, non-tender and non-distended Extremity no clubbing, cyanosis or edema Skin no rashes or lesions noted General Skin Exam: no breakdown Neuro oriented x3, CN's II-XII intact bilaterally, moves all extremities, no focal motor deficits and no sensory deficits noted Sensorium / Orientation: awake and alert Speech: speech normal Psych affect normal Assessment & Plan Assessment/Plan (1) Hypoxia: PLAN: Plan 1. Influenza A infection with bronchospasm-continue Tamiflu #2 hypoxia secondary to #1-monitor pulse ox, patient is currently on room air #3 type 2 diabetes-blood sugars will be monitored, sliding scale insulin will be given as needed #4 essential hypertension-patient will remain on her current medications Charges/Coding Visit Charges Inpatient E&M: 33372 Subs Hosp L2
[2022-07-13 21:56] LABS: Bedside Glucose 182 mg/dL (74-106)
[2022-07-13 23:24] LABS: Mucous, Urine 0 SEEN /hpf (<or=2+); Red Blood Cells-Urine 0 SEEN /hpf (0-5); Squamous Epithelial Cells - UA 0 SEEN /hpf (5-10)
[2022-07-13 23:25] LABS: Color, Urine Yellow (Yellow); Glucose, Dipstick Normal (Normal); Ketone-Dipstick 5 mg/dl (Negative); Leukocyte Esterase-Dipstick 100 /ul (Negative); Nitrite-Dipstick Negative (Negative); Occult Blood-Urine Negative /ul (Negative); Protein-Dipstick 15 mg/dl (Negative); Urine Bilirubin Dipstick Negative (Negative); Urine Clarity Clear (Clear); Urine Urobilinogen Normal (Normal)
--- NOTE | 2022-07-13 23:31 | NURSING ---
Addendum entered by Huong Coulter 07/14/22 00:32: late entry: incidents occurred at approx 2030 on 07/13. charge nurse, nursing mill platform supervisor, and MD aware. Original Note: This nurse entered pts room with requested medications this evening. when nurse attempted to check patients blood sugar with the glucometer the patient became increasingly confused and upset. the patient insisted that it was time to go home and her was on the way. this nurse attempted to contact patients , but was unable to reach the spouse at the time. the patient became increasingly upset when the nurse was unable to reach the spouse. this nurse attempted to redirect and reorient the patient without success. with assistance from [facility] staff the pt was eventually calmed and the spouse was reached. the spouse was agreeable to coming to the hospital at the patients request. the patient is combative and refusing all care at this time, the spouse is in the room
[2022-07-13 23:40] LABS: Bacteria 1+ /hpf (None Seen); White Blood Cells 5-10 SEEN /hpf (0-5)
[2022-07-14] VITALS (7 sets, daily range): BP systolic 147–161; BP diastolic 65–80; PULSE 75–88; RESP 18–20; TEMP 36.8–37.2; O2SAT 86–97
[2022-07-14] MEDS: Insulin Lispro 100 UNIT/ML INSULN.PEN SC ×2 (06:02→11:25)
[2022-07-14 06:25] LABS: Bedside Glucose 177 mg/dL (74-106)
[2022-07-14] MEDS: Ipratropium/Albuterol Sulfate 3 ML AMPUL.NEB INHALATION (06:46)
[2022-07-14] MEDS: Budesonide Respules 0.5 MG/2 ML AMPUL.NEB. INHALATION (06:46)
[2022-07-14] MEDS: Aspirin E.C. 81 MG Tablet PO (08:54)
[2022-07-14] MEDS: Enoxaparin 40 MG/0.4 ML Syringe SC (08:54)
[2022-07-14] MEDS: Ramipril 10 MG Capsule PO (08:56)
[2022-07-14] MEDS: Metoprolol Tartrate 25 MG Tablet PO (08:57)
[2022-07-14] MEDS: amLODIPine 5 MG Tablet PO (08:57)
[2022-07-14] MEDS: Pantoprazole Sodium 20 MG Tablet PO (08:57)
[2022-07-14] MEDS: Insulin Glargine-YFGN 100 UNIT/ML Pen 24 UNIT SC (10:21)
[2022-07-14 12:06] LABS: Bedside Glucose 185 mg/dL (74-106)
--- NOTE | 2022-07-14 12:49 | CASEMGMT ---
Pt nurse made DEONNA MARKS aware that pt is interested in HHC for diabetic education with . DEONNA MARKS in to pt room, pt and son present. Discussed HHC and pt states that he is concerned that if pt blood sugar gets too high, he will not know what to do. Pt declined needing any HHC. States in 33 years this has not been an issue. She left it up to her if he would want HHC, he then stated no. He states he will take the teaching provided by pt nurse upon dc. Asked if pt should need oxygen, would that change their minds and pt states she has had oxygen before and still does not want HHC. Made aware that should pt or feel they need it once home, they can contact PCP. Pt/ deny further needs. Pt states she will educate her on anything he needs to know for her diabetes once home.
[2022-07-14] MEDS: Albuterol 2.5 MG/3 ML VIAL.NEB. INHALATION (13:11)
--- NOTE | 2022-07-14 13:21 | DS.PCM_ITS ---
Providers Date of Admission: 07/10/22 Date of Discharge: 07/14/22 Primary Care Physician: Dr. Luzma Palencia MD Reason For Visit: ACUTE HYPOXIA Diagnosis Discharge Diagnosis (1) Hypoxia: Status: Acute Code(s): R09.02 - Hypoxemia Plan 1. Influenza A infection with bronchospasm-continue Tamiflu #2 hypoxia secondary to #1-monitor pulse ox, patient is currently on room air #3 type 2 diabetes-blood sugars will be monitored, sliding scale insulin will be given as needed #4 essential hypertension-patient will remain on her current medications Medications at Discharge Home Medications aspirin 81 mg tablet,delayed release 81 mg PO DAILY heart health 11/24/17 ramipril 10 mg capsule 10 mg PO BID HEART 01/19/19 cholecalciferol (vitamin D3) 1,250 mcg (50,000 unit) capsule 1,250 mcg PO QWEEK SUPPLEMENT 12/03/19 furosemide 20 mg tablet 20 mg PO DAILY PRN water pill 01/22/21 insulin NPH isoph U-100 human 100 unit/mL subcutaneous suspension (Novolin N NPH U-100 Insulin isophane) 13 unit subcut QAM DIABETES 01/22/21 budesonide-formoterol HFA 160 mcg-4.5 mcg/actuation aerosol inhaler 2 puff inhalation BID ASTHMA 12/21/21 zolpidem 5 mg tablet 2.5 mg PO QHS PRN Insomnia 02/11/22 insulin glargine 100 unit/mL (3 mL) subcutaneous pen 24 unit subcut QHS DM 06/22/22 insulin lispro 100 unit/mL subcutaneous solution 6 unit subcut TIDCM dm 06/22/22 omeprazole magnesium 20 mg tablet,delayed release (Prilosec OTC) 20 mg PO DAILY GERD 06/22/22 albuterol sulfate 90 mcg/actuation aerosol inhaler (Ventolin HFA) 2 puff inhalation 4XD PRN sob #8.5 grams 07/14/22 amlodipine 5 mg tablet (Norvasc) 5 mg PO DAILY BLOOD PRESSURE 07/17/22 metoprolol tartrate 25 mg tablet 25 mg PO BID BLOOD PRESSURE 07/17/22 Hospital Course Operations None Procedures None Summary of Care Provided Minutes Spent on Discharge: 31 Hospital Course: 26-year-old for male was seen in the emergency room at [facility] with a chief complaint of generalized malaise x1 week, she also complained of subjective fever and chills as well as nausea and vomiting. Finally, should that complain of shortness of breath with cough that was nonproductive. Work-up in the emergency room included a rapid COVID and influenza which came back negative, patient was found to be hypoxic with oxygen saturations in the mid 80s on room air. Patient was placed on supplemental oxygen and admitted to [place] [address] for acute hypoxia of undetermined etiology. Patient was given aerosol treatments and supportive care, she later had a respiratory panel that resulted positive for influenza A. Patient was placed on Tamiflu, she was also later placed on inhaled budesonide. On 07/14/2022, patient's Tamiflu was discontinued due to some confusion the patient had while she was on the medication. Patient was given an IM injection of Depo-Medrol 80 mg on that date. On 07/14/2022, patient was seen and examined: On examination she appeared in good health and spirits, she does not appear to be in any distress. Vital signs as documented. Skin warm and dry and without overt rashes. Neck without JVD, thyroid appears normal, trachea is midline, neck is supple. Lungs expiratory wheezing was noted bilaterally which was not severe. Heart exam notable for regular rhythm, normal sounds and absence of murmurs, rubs or gallops. Abdomen unremarkable and without evidence of organomegaly, masses, or abdominal aortic enlargement, bowel sounds are present in all 4 quadrants, no abdominal tenderness was noted. Extremities nonedematous, no cyanosis was noted, no clubbing was noted. Neuro: Cranial nerves II through XII are grossly intact, no focal motor deficits were noted, sensation to light touch and pinprick is intact, motor exam 5/5 throughout. Psych: Patient is alert and oriented x3, she does not appear anxious or depressed, she does not appear agitated. Patient required 2 L of oxygen at rest on discharge on 07/14/2022, she required 4 L of oxygen via nasal cannula during activity. This was set up for the patient. Patient was discharged home in stable condition on 07/14/2022 Weight / BMI Weight Weight: 152.407 kg Body Mass Index (BMI) 49.6 ABG / Lab / Microbiology Data Result Diagrams: 07/11/22 06:36 07/11/22 06:36 Microbiology: Microbiology 07/14/22 00:49 Urine, Random Urine Culture - Final Mixed Gram Positive Organisms 07/11/22 11:30 Sputum, Expectorated/Coughed Gram Stain - Final 07/11/22 11:30 Sputum, Expectorated/Coughed Respiratory Culture - Final Mixed normal respiratory lawanda. No Streptococcus pneumoniae, beta-hemolytic Streptococcus or Staphylococcus aureus isolated. 07/10/22 17:43 Mucosa - Nasopharyngeal Respiratory Panel (PCR) - Final Influenza A (Subtype H1) 07/10/22 15:13 Nasal Secretion SARS-CoV-2 & FLU Antigen (Rapid) - Final D/C Instructions Discharge Diet: 1800 Calorie Control Diet Weight Bearing Status: Full weight bearing Meaningful Use Info Meaningful Use Diagnoses (Choose all that apply): None applicable Discharge Plan Admission Admit Date/Time: 07/10/22 17:09 Primary Reason for Your Visit: hypoxia, influenza A Attending Provider: Jer Escobedo Primary Care Provider: Luzma Palencia Consulting Providers: Tawanda Herring Instructions Additional Instructions / Restrictions: Use oxygen at 2 liters per minutes at rest and 4 liters when ambulating Discharge Orders/Prescriptions Prescriptions: Continued aspirin 81 mg tablet,delayed release (DR/EC) 81 mg PO DAILY cholecalciferol (vitamin D3) 1,250 mcg (50,000 unit) capsule 1,250 mcg PO QWEEK furosemide 20 mg tablet 20 mg PO DAILY PRN (Reason: water pill) Novolin N NPH U-100 Insulin 100 unit/mL suspension 13 unit subcut QAM insulin lispro 100 unit/mL solution 6 unit subcut TIDCM Protocol: 4. Sliding Scale Insulin High-Med Dosing Condition: 150-199 mg/dl = 2 units Condition: 200-259 mg/dl = 4 units Condition: 260-324 mg/dl = 6 units Condition: 325-374 mg/dl = 8 units Condition: 375-409 mg/dl = 10 units Condition: 410-449 mg/dl = 11 units Condition: Greater than 449 call physician Protocol Text: - Use for Total Daily Dose of Insulin 56-80 units - Patient who are insulin resistant or septic HIGH MEDIUM DOSING ALGORITHM Label Comments: INJECT 3 TO 10 UNITS SUBCUTANEOUSLY BEFORE MEALS DIRECTED budesonide-formoterol 160-4.5 mcg/actuation HFA aerosol inhaler 2 puff inhalation BID omeprazole magnesium [Prilosec OTC] 20 mg tablet,delayed release (DR/EC) 20 mg PO DAILY ramipril 10 MG capsule 10 mg PO BID Label Comments: TAKE 1 CAPSULE BY MOUTH TWICE DAILY insulin glargine 100 unit/mL (3 mL) insulin pen 24 unit subcut QHS zolpidem 5 mg Tablet 2.5 mg PO QHS PRN (Reason: Insomnia) Changed albuterol sulfate [Ventolin HFA] 90 mcg/actuation HFA aerosol inhaler 2 puff INHALATION 4XD PRN (Reason: sob) Qty: 8.5 0RF Rx Instructions: use four times a day for the next seven days, then use every 6 hours as needed for shortness of breath No Action amlodipine [Norvasc] 5 mg tablet 5 mg PO DAILY metoprolol tartrate 25 mg tablet 25 mg PO BID Referrals / Follow Up: Luzma Palencia MD [Primary Care Provider] - 07/21/22 9:20 am Disposition Disposition (needs filled in before D/C Order can be placed): Home, Self Care Charges/Coding Visit Charges Inpatient E&M: 26462 Disch Hosp >30min
--- NOTE | 2022-07-14 13:54 | DCINST_ITS ---
Discharge Instructions Diet Discharge Diet: 1800 Calorie Control Diet Activity Discharge Activity: Return to Normal Activity Weight Bearing Status: Full weight bearing Follow Up Care Test Results: Test results from this visit will be discussed in further detail at your follow- up appointment, if applicable. Discharge Plan Admission Admit Date/Time: 07/10/22 17:09 Primary Reason for Your Visit: hypoxia, influenza A Attending Provider: Jer Escobedo Primary Care Provider: Luzma Palencia Consulting Providers: Tawanda Herring Instructions Additional Instructions / Restrictions: Use oxygen at 2 liters per minutes at rest and 4 liters when ambulating Discharge Orders/Prescriptions Prescriptions: Continued aspirin 81 mg tablet,delayed release (DR/EC) 81 mg PO DAILY cholecalciferol (vitamin D3) 1,250 mcg (50,000 unit) capsule 1,250 mcg PO QWEEK furosemide 20 mg tablet 20 mg PO DAILY PRN (Reason: water pill) Novolin N NPH U-100 Insulin 100 unit/mL suspension 13 unit subcut QAM insulin lispro 100 unit/mL solution 3 - 6 unit subcut QAC Protocol: 4. Sliding Scale Insulin High-Med Dosing Condition: 150-199 mg/dl = 2 units Condition: 200-259 mg/dl = 4 units Condition: 260-324 mg/dl = 6 units Condition: 325-374 mg/dl = 8 units Condition: 375-409 mg/dl = 10 units Condition: 410-449 mg/dl = 11 units Condition: Greater than 449 call physician Protocol Text: - Use for Total Daily Dose of Insulin 56-80 units - Patient who are insulin resistant or septic HIGH MEDIUM DOSING ALGORITHM Label Comments: INJECT 3 TO 10 UNITS SUBCUTANEOUSLY BEFORE MEALS DIRECTED metoprolol tartrate 25 mg tablet 25 mg PO BID Qty: 180 3RF amlodipine [Norvasc] 5 mg tablet 5 mg PO DAILY Qty: 90 3RF budesonide-formoterol 160-4.5 mcg/actuation HFA aerosol inhaler 2 puff inhalation BID omeprazole magnesium [Prilosec OTC] 20 mg tablet,delayed release (DR/EC) 20 mg PO DAILY ramipril 10 MG capsule 10 mg PO BID Label Comments: TAKE 1 CAPSULE BY MOUTH TWICE DAILY insulin glargine 100 unit/mL (3 mL) insulin pen 22 - 24 unit subcut QHS zolpidem 5 mg Tablet 2.5 - 5 mg PO QHS PRN (Reason: Insomnia) Changed albuterol sulfate [Ventolin HFA] 90 mcg/actuation HFA aerosol inhaler 2 puff INHALATION 4XD PRN (Reason: sob) Qty: 8.5 0RF Rx Instructions: use four times a day for the next seven days, then use every 6 hours as needed for shortness of breath Referrals / Follow Up: Luzma Palencia MD [Primary Care Provider] - In 1 Week Disposition Disposition (needs filled in before D/C Order can be placed): Home, Self Care
[2022-07-14] MEDS: MethylPREDNISolone Acetate 80 MG/ML Vial IM (14:37)
== END 2022-07-14 15:25 | disposition home or self-care (01) | DRG 194 ==
LOC: ED 17:23 → MS3 17:35
PROVIDERS: Family Medicine; Admitting Provider Internal Medicine; Emergency Provider Student in an Organized Health Care Education/Training Program; PCP Internal Medicine; Visit Provider Internal Medicine
DX: J10.1 Influenza due to other identified influenza virus with other respiratory manifestations (principal); Z68.42 Body mass index [BMI] 45.0-49.9, adult; I47.1 Supraventricular tachycardia; E11.9 Type 2 diabetes mellitus without complications; Z79.4 Long term (current) use of insulin; E66.01 Morbid (severe) obesity due to excess calories; G47.33 Obstructive sleep apnea (adult) (pediatric); E78.5 Hyperlipidemia, unspecified; K21.9 Gastro-esophageal reflux disease without esophagitis; I10 Essential (primary) hypertension; J45.20 Mild intermittent asthma, uncomplicated; I49.3 Ventricular premature depolarization; I49.1 Atrial premature depolarization; R09.02 Hypoxemia; Z79.51 Long term (current) use of inhaled steroids; Z79.82 Long term (current) use of aspirin; Z79.899 Other long term (current) drug therapy; Z87.891 Personal history of nicotine dependence
CPT/HCPCS: 36415; 71045; 80048; 81001; 82947; 82962; 83036; 83735; 84100; 84484; 85025; 85379; 87070; 87086; 87088; 87205; 87428; 87633; 87635; 93005; 94640; 94760; 99251; 99284; J7030; A4216; G0463; U0003; U0005

== ENCOUNTER 2022-07-17 22:30 | Inpatient (IN) | payer MEDICARE, SELFPAY ==
[2022-07-17 22:30] VITALS: BP 148/67; PULSE 86; RESP 24; TEMP 36.9; O2SAT 73; BMI 52.2
[2022-07-17 22:35] VITALS: O2SAT 91
--- NOTE | 2022-07-17 22:37 | EKG12_ITS ---
Test Reason : Blood Pressure : / mmHG Vent. Rate : 074 BPM Atrial Rate : 074 BPM P-R Int : 122 ms QRS Dur : 082 ms QT Int : 408 ms P-R-T Axes : 051 064 053 degrees QTc Int : 452 ms Sinus rhythm with Premature atrial complexes Otherwise normal ECG Confirmed by RAHUL JOSE, ARIAN ([id number]), book editor MAMIE HENDERSON ([id number]) on 07/20/2022 10:43:34 AM Referred By: Confirmed By:ARIAN KAY MD
--- NOTE | 2022-07-17 22:40 | ED.VIS.DYS ---
HPI History of Present Illness Chief Complaint: Shortness of Breath Detail of Chief Complaint: Dyspnea, dyspnea on exertion, productive cough and hypoxia Informant: patient, spouse/S.O. and EMS Onset/Context/Timing Onset: Today and Yesterday Context: gradual Timing: Continuous and Waxes and wanes Quality: Positive for Dyspnea on exertion, Orthopnea (Chronic) and Wheezing; Negative for PND Current Severity: Mild Maximum Severity: Severe Worsened by: Exertion, Lying flat and Coughing Relieved by: Nothing Associated Symptoms cough, post nasal drip, fever, sore throat, yellow sputum and green sputum; Negative for rhinorrhea, ear pain, chills, sweats, clear sputum or white sputum Chest Pain: Positive for None Narrative Narrative: Patient is a 76-year-old morbidly obese woman with history of obstructive sleep apnea, essential hypertension, PSVT, type 2 diabetes and hyperlipidemia who presents because of pulse ox reading in the 70s. Squad had a pulse ox reading of 70%. Her pulse ox upon arrival on room air is 73%. She is not normally on oxygen. She states she was seen on Tuesday. There is no indication or records that she was seen on Tuesday. She was seen last Tuesday on July 10. She was diagnosed with influenza type a H1. Patient was not discharged on Tamiflu. Patient does have a remote history of DVT status post ankle fracture 6 years ago. She denies pleuritic chest pain. She denies headache, visual, ocular auditory symptoms. She states initially she had congestion and runny nose with the onset of her illness. She does not presently have congestion or rhinorrhea. She denies sore throat. She does endorse cough that is productive of yellow-green sputum, shortness of breath, dyspnea on exertion, chronic orthopnea. She denies PND. She states she has chronic leg swelling. She denies nausea, vomiting or diarrhea. She denies black or maroon-colored stool. She denies urologic symptoms. She she is compliant with her CPAP machine at night. She does require oxygen at night. She denies leg pain or discoloration. There is been no decrease in activity prior to her symptoms worsening. PE Risk Factors: Positive for Prior DVT or PE; Negative for Cancer, OCP + Smoking + > 35, Recent immobilization, Recent surgery or Recent travel Prior similar symptoms: Yes Recent Illness/Hospitalization: Yes [facility] Medical History Abnormal EKG Asthma Bimalleolar ankle fracture Charcot's joint of left foot Diabetes mellitus, type II Essential hypertension GERD (gastroesophageal reflux disease) History of DVT (deep vein thrombosis) Hyperlipidemia Hypertension THAIS (obstructive sleep apnea) Paroxysmal SVT (supraventricular tachycardia) Premature atrial contractions Premature ventricular contraction Sinus bradycardia Home Medications aspirin 81 mg tablet,delayed release 81 mg PO DAILY heart health 11/24/17 [History Last Taken 01/19/19 16:00] ramipril 10 mg capsule 10 mg PO BID HEART 01/19/19 [History Last Taken 01/19/19 21:00] cholecalciferol (vitamin D3) 1,250 mcg (50,000 unit) capsule 1,250 mcg PO QWEEK SUPPLEMENT 12/03/19 [History Last Taken Unknown] furosemide 20 mg tablet 20 mg PO DAILY PRN water pill 01/22/21 [History Last Taken Unknown] insulin NPH isoph U-100 human 100 unit/mL subcutaneous suspension (Novolin N NPH U-100 Insulin isophane) 13 unit subcut QAM DIABETES 01/22/21 [History Last Taken Unknown] budesonide-formoterol HFA 160 mcg-4.5 mcg/actuation aerosol inhaler 2 puff inhalation BID ASTHMA 12/21/21 [History Last Taken Unknown] zolpidem 5 mg tablet 2.5 mg PO QHS PRN Insomnia 02/11/22 [History Last Taken Unknown] insulin glargine 100 unit/mL (3 mL) subcutaneous pen 24 unit subcut QHS DM 06/22/22 [History Last Taken Unknown] insulin lispro 100 unit/mL subcutaneous solution 6 unit subcut TIDCM dm 06/22/22 [History Last Taken Unknown] omeprazole magnesium 20 mg tablet,delayed release (Prilosec OTC) 20 mg PO DAILY GERD 06/22/22 [History Last Taken Unknown] albuterol sulfate 90 mcg/actuation aerosol inhaler (Ventolin HFA) 2 puff inhalation 4XD PRN sob #8.5 grams 07/14/22 [Rx Last Taken Unknown] amlodipine 5 mg tablet (Norvasc) 5 mg PO DAILY BLOOD PRESSURE 07/17/22 [History Last Taken Unknown] metoprolol tartrate 25 mg tablet 25 mg PO BID BLOOD PRESSURE 07/17/22 [History Last Taken Unknown] Allergy/AdvReac Type Severity Reaction Status Date / Time albuterol [From Ventolin HFA] Allergy Intermediate nausea, Verified 07/10/22 14:15 vomiting pravastatin Allergy Unknown unknown Verified 07/10/22 14:15 rosuvastatin [From Crestor] Allergy Unknown myalgias Verified 07/10/22 14:15 simvastatin Allergy Unknown unknown Verified 07/10/22 14:15 escitalopram Allergy Other Verified 07/10/22 14:15 hydrochlorothiazide Allergy Other Verified 07/10/22 14:15 Sypkjyt-[id number]-VkG Reductase AdvReac Severe myalgias Verified 07/10/22 14:15 Inhibitor [Qqvwvzo-Vtp-Mfe Reductase Inhibitor] codeine AdvReac Nausea Verified 07/10/22 14:15 naproxen [From Naprosyn] AdvReac Nausea Verified 07/10/22 14:15 Family History Mother Aortic stenosis Presence of permanent cardiac pacemaker Surgical History History of cholecystectomy History of tonsillectomy Social History household members: spouse Smoking Status: Former smoker alcohol intake: never substance use type: does not use ROS ROS ED Constitutional Constitutional ED: Denies chills, fever(s), sweats or weight loss Eyes Eyes: Denies blurry vision, change in vision or diplopia ENT ENT ED: Denies ear pain, rhinorrhea or sore throat Cardiovascular Cardiovascular: Reports orthopnea; Denies chest pain, palpitations, paroxysmal nocturnal dyspnea or racing heartbeat Respiratory/Chest Respiratory/Chest: Reports cough, dyspnea, dyspnea on exertion and orthopnea; Denies paroxysmal nocturnal dyspnea Gastrointestinal Gastrointestinal: Denies abdominal pain, constipation, diarrhea, nausea or vomiting Genitourinary Genitourinary ED: Denies dysuria, hematuria or urinary frequency Musculoskeletal Musculoskeletal: Denies arthralgias, back pain, myalgias or neck pain Integumentary Denies Abrasions or rash Neurologic Neurologic: Reports weakness; Denies headache(s) or paresthesias Endocrine Endocrinology: Denies cold intolerance or heat intolerance Hematologic/Lymphatic Hematologic/Lymphatic: Denies easy bleeding or easy bruising EXAM Physical Exam Const Vital Signs: 07/17/22 22:30 07/17/22 22:35 07/17/22 22:42 Temperature 98.5 F 98.5 F Temperature Source Oral Oral Pulse Rate 86 74 Respiratory Rate 24 H 21 H Respiratory Pattern Blood Pressure 148/67 H 148/67 H Blood Pressure Mean 94 94 Pulse Ox 73 91 94 Oxygen Delivery Method Room Air Nasal Cannula Nasal Cannula Oxygen Flow Rate (L/min) 5 5 07/17/22 22:59 07/17/22 23:00 07/17/22 23:03 Temperature Temperature Source Pulse Rate 73 79 Respiratory Rate 18 18 Respiratory Pattern Normal Normal Blood Pressure Blood Pressure Mean Pulse Ox 94 Oxygen Delivery Method Nasal Cannula Oxygen Flow Rate (L/min) 4 Positive well nourished, well developed and obese Constitutional Narrative: Patient is slightly tachypneic. There is no use of accessory muscles or retractions. Patient initially had central cyanosis. General Appearance ED: well developed; Negative for NAD Nutritional Appearance: obese HEENT Reports dry mucous membranes HEENT Narrative: Head is atraumatic normocephalic. Ears normal. Nares patent. Uvula midline. No erythema exudate the posterior pharynx. Mouth ED: Yes dry mucous membranes Mouth: dry mucous membranes Eyes PERRL and EOMs intact bilaterally General Eye ED: Negative for pale conjunctiva or scleral icterus Neck no lymphadenopathy, supple and no meningeal signs Neck Narrative: Trachea is midline. There is no in-store expiratory stridor. Resp No normal respiratory effort and No clear to auscultation bilaterally MDM MDM MDM Narrative Medical decision making narrative: Patient is hypoxic. Concerned she has pneumonia. If there is infiltrate noted on x-ray with diagnosis of influenza type a H1 need to treat for staphylococcal infection. We will treat patient with Rocephin and vancomycin for streptococcal and staphylococcal coverage. We will Patient was reexamined. Wheezing has improved after DuoNeb, albuterol and Solu-Medrol. Patient was treated with Rocephin and vancomycin since she has new bilateral perihilar infiltrates compared to chest x-ray from 1 week ago. Lab Data Attestation: I reviewed the patient's lab results. Lab results narrative: White count is normal. Differential reveals slight shift with no bandemia. Comprehensive metabolic panel is marked for an elevated CO2 of 35. Lactate is normal at 1.2. Blood sugar is elevated at 160 with a normal anion gap. Labs: Laboratory Results - last 24 hr 07/17/22 07/17/22 07/17/22 22:40 22:40 22:47 WBC 6.5 RBC 4.06 L Hgb 12.5 Hct 36.7 L MCV 90.4 MCH 30.8 MCHC 34.1 RDW Std Deviation 40.5 RDW Coeff of Madalyn 12.2 Plt Count 201 MPV 12.2 H Immature Gran % (Auto) 0.300 Neut % (Auto) 77.0 H Lymph % (Auto) 13.1 L [place] % (Auto) 8.6 Eos % (Auto) 0.8 Baso % (Auto) 0.2 Absolute Neuts (auto) 5.0 Absolute Lymphs (auto) 0.85 Nucleated RBC % 0 Sodium 139 Potassium 3.1 L Chloride 99 Carbon Dioxide 35.0 H Anion Gap 5 BUN 8 Creatinine 0.68 Estim Creat Clear Calc 50.02 Est GFR (MDRD) Af Amer 108 Est GFR (MDRD) Non-Af 89 BUN/Creatinine Ratio 11.8 Glucose 160 H Lactic Acid 1.2 Calcium 8.2 L Total Bilirubin 1.10 H AST 14 L ALT 20 Alkaline Phosphatase 79 Total Protein 6.8 Albumin 2.7 L Globulin 4.1 Albumin/Globulin Ratio 0.7 L Radiography Chest X-Ray - ED: 1 View and Read by ED Physician (Patient has patchy bilateral perihilar infiltrates. This was not noted on prior x-ray 1 week ago. Cardiac size is unremarkable. Osseous trucks unremarkable. There is no effusion. This was independently reviewed and interpreted by me.) Diagnostic Testing: Clinical Impression(s) from Imaging Studies Chest X-Ray 07/17/22 23:20 IMPRESSION: Rest and mild perihilar interstitial infiltrates are not seen on the previous study. Electronically Signed: Matt CaleroDO at 23:39 EST Reading Location ID and State: [address] [place] [address] Tel [phone], Service support , EKG Initial EKG: Attestation: I personally reviewed and interpreted this EKG as follows: Interpretation: Sinus Rhythm (Ventricular rate is 74. There are premature atrial beats noted. The EKG is otherwise unremarkable. MD intervals 122 ms. QS duration 82 ms. QT duration 208 ms. [place] is normal.) Critical Care Time Critical Care Time: Yes Critical care time (excluding procedures): 30-74 minutes (31), Including time spent: (History, physical, documentation, review of prior records and x-ray, interpretation of x-ray and initiation of therapy), Discussing w/Patient &/or Family/Hand Tube Bender (Since both to patient and . Informed that she will need to be admitted and what the findings on her chest x-ray were. Confirmed that she has no allergies to antibiotics specifically Rocephin and vancomycin.), Discussing w/Consultants and Arranging Admission or Transfer Discharge Plan Triage Chief Complaint: Shortness of Breath ED Provider: Mark Castillo Dx/Rx/DC Orders Clinical Impression: Acute respiratory failure with hypoxia, Essential hypertension, Hyperlipidemia, Bilateral pneumonia, Acute hypokalemia, Hyperglycemia due to type 2 diabetes mellitus, Asthma exacerbation in COPD Prescriptions: No Action aspirin 81 mg tablet,delayed release (DR/EC) 81 mg PO DAILY cholecalciferol (vitamin D3) 1,250 mcg (50,000 unit) capsule 1,250 mcg PO QWEEK furosemide 20 mg tablet 20 mg PO DAILY PRN (Reason: water pill) Novolin N NPH U-100 Insulin 100 unit/mL suspension 13 unit subcut QAM insulin lispro 100 unit/mL solution 6 unit subcut TIDCM Protocol: 4. Sliding Scale Insulin High-Med Dosing Condition: 150-199 mg/dl = 2 units Condition: 200-259 mg/dl = 4 units Condition: 260-324 mg/dl = 6 units Condition: 325-374 mg/dl = 8 units Condition: 375-409 mg/dl = 10 units Condition: 410-449 mg/dl = 11 units Condition: Greater than 449 call physician Protocol Text: - Use for Total Daily Dose of Insulin 56-80 units - Patient who are insulin resistant or septic HIGH MEDIUM DOSING ALGORITHM Label Comments: INJECT 3 TO 10 UNITS SUBCUTANEOUSLY BEFORE MEALS DIRECTED budesonide-formoterol 160-4.5 mcg/actuation HFA aerosol inhaler 2 puff inhalation BID omeprazole magnesium [Prilosec OTC] 20 mg tablet,delayed release (DR/EC) 20 mg PO DAILY ramipril 10 MG capsule 10 mg PO BID Label Comments: TAKE 1 CAPSULE BY MOUTH TWICE DAILY insulin glargine 100 unit/mL (3 mL) insulin pen 24 unit subcut QHS zolpidem 5 mg Tablet 2.5 mg PO QHS PRN (Reason: Insomnia) albuterol sulfate [Ventolin HFA] 90 mcg/actuation HFA aerosol inhaler 2 puff INHALATION 4XD PRN (Reason: sob) Qty: 8.5 0RF Rx Instructions: use four times a day for the next seven days, then use every 6 hours as needed for shortness of breath amlodipine [Norvasc] 5 mg tablet 5 mg PO DAILY metoprolol tartrate 25 mg tablet 25 mg PO BID Primary Care Provider: Luzma Palencia Referrals: Luzma Palencia MD [Primary Care Provider] - Disposition Disposition: Acute Care Hospital [facility]
[2022-07-17 22:42] VITALS: BP 148/67; PULSE 74; RESP 21; TEMP 36.9; O2SAT 94
[2022-07-17] MEDS: Albuterol 2.5 MG/3 ML VIAL.NEB. INHALATION ×3 (22:58)
[2022-07-17] MEDS: Ipratropium/Albuterol Sulfate 3 ML AMPUL.NEB INHALATION (22:58)
[2022-07-17 22:59] VITALS: O2SAT 94
[2022-07-17 22:59] LABS: Absolute Lymphocyte Count 0.85 X10^3/uL (0.83-4.51); Basophil# 0.01 X10^3/uL; Basophil% 0.2 % (0-1); Eosinophil# 0.05 X10^3/uL; Eosinophils% 0.8 % (0-5); Hematocrit 36.7 % (37-47); Hemoglobin 12.5 g/dL (12.0-15.0); Lymphocyte # 0.85 X10^3/ul (0.83-4.51); Lymphocyte % 13.1 % (19-41); Mean Corp Hgb Conc 34.1 g/dL (32-36); Mean Corpuscular Hgb 30.8 pg (27.0-32.0); Mean Corpuscular Volume 90.4 fL (81-99); Mean Platelet Vol. 12.2 fl (6.2-12.0); Monocyte# 0.56 X10^3/uL; Monocyte% 8.6 % (0-10); NRBC Flagged by Analyzer 0 % (0-5); Neutrophil # 4.99 X10^3/uL (2.7-7.7); Platelet Count 201 K/mm3 (150-450); RBC Distribution Width CV 12.2 % (11.6-14.6); RBC Distribution Width SD 40.5 fl (35.1-43.9); Red Blood Count 4.06 M/mm3 (4.2-5.4); White Blood Count 6.5 K/mm3 (4.4-11.0)
[2022-07-17 23:00] VITALS: PULSE 73; RESP 18
[2022-07-17 23:03] VITALS: PULSE 79; RESP 18
[2022-07-17 23:19] LABS: ALB/GLOB Ratio 0.7 RATIO (0.9-2.4); AST(SGOT) 14 U/L (15-37); Alanine Aminotransfer ALT/SGPT 20 U/L (13-56); Albumin, Serum 2.7 g/dL (3.2-5.0); Alkaline Phosphatase 79 U/L (45-117); Anion Gap 5 (5-15); BUN 8 mg/dL (7-18); BUN/Creat Ratio 11.8 RATIO (10-20); Calcium,Total 8.2 mg/dL (8.5-10.1); Chloride 99 mmol/L (98-107); Creatinine, Serum 0.68 mg/dL (0.55-1.02); EST Glomerular Filtration Rate 89 mL/min (>60); Est Glom Filt Rate - Afr Amer 108 mL/min (>60); Estimated Creatinine Clearance 50.02 ml/min; Globulin 4.1 g/dL (2.2-4.2); Glucose 160 mg/dL (74-106); Potassium 3.1 mmol/L (3.5-5.1); Protein, Total 6.8 g/dL (6.4-8.2); Sodium Level 139 mmol/L (136-145)
--- NOTE | 2022-07-17 23:20 | RAD_ITS ---
STUDY: X-RAY CHEST REASON FOR EXAM: Female, 76 years old. Recommend cough. Hypoxia. Increased shortness of breath. Oxygen saturation of 85% on 2 L. Recently admitted for influenza A and discharged 3 days ago. TECHNIQUE: Single AP portable view of the chest. COMPARISON: July 10, 2022. FINDINGS: There is mild perihilar interstitial prominence. This appears slightly increased from previous study. There is no demonstrated pleural abnormality. Normal size heart. Normal mediastinum stable hilar prominence. There is atherosclerotic calcification of the aortic arch with tortuosity. There are diffuse degenerative changes of the visualized thoracic spine. There is degenerative osteoarthritis of the bilateral shoulders. There is no demonstrated abnormality of the visualized soft tissue structures of the upper abdomen. RAD/Chest 1 View (Portable) IMPRESSION: Rest and mild perihilar interstitial infiltrates are not seen on the previous study. Electronically Signed: Matt Calero DO at 23:39 EST ,
[2022-07-17 23:25] LABS: Lactic Acid 1.2 mmol/L (0.4-1.9)
[2022-07-17] MEDS: MethylPREDNISolone 125 MG/2 ML Vial IV (23:34)
[2022-07-18] VITALS (20 sets, daily range): BP systolic 145–169; BP diastolic 61–75; PULSE 78–98; RESP 12–22; TEMP 36.5–37.2; O2SAT 92–95; BMI 50.7
[2022-07-18 01:20] LABS: Allen Test Positive; Base Excess 8 mmol/L (-2 to +2); Bicarbonate 32.4 mmol/L (22-26); Blood Gas Specimen Type ART; O2 Delivery Device Cannula; PO2 68 mmHG (75-100); SITE R Radial; SO2 94 % (95-99); Total Carbon Dioxide 34 mmol/L; pCO2 47.5 mmHg (35-45); pH 7.44 (7.35-7.45)
[2022-07-18] MEDS: Ceftriaxone 1 GM/50 ML BAG IV ×2 (01:25→22:20)
--- NOTE | 2022-07-18 01:58 | PCM.HP.STD ---
HPI - General General Date of Admission: 07/18/22 Date of Service: 07/18/22 Chief Complaint: Hypoxia HPI Narrative ATTILA KIDD, is a 76 F with a significant history of diabetes mellitus; Charcot's foot; COPD and obstructive sleep apnea who was recently admitted on 07/10/2022 and discharged on 07/14/2022 for influenza A infection returning to the emergency department because of hypoxia. Patient was recently discharged home on 2 L nasal cannula at rest and 4 L while ambulating. She reported on 2 L her oxygen saturation was in the 70s so she came to the emergency department. Associated with her symptom is shortness of breath and productive cough FORMERLY [facility], [facility] Medical History Abnormal EKG Asthma Bimalleolar ankle fracture Charcot's joint of left foot Diabetes mellitus, type II Essential hypertension GERD (gastroesophageal reflux disease) History of DVT (deep vein thrombosis) Hyperlipidemia Hypertension THAIS (obstructive sleep apnea) Paroxysmal SVT (supraventricular tachycardia) Premature atrial contractions Premature ventricular contraction Sinus bradycardia Home Medications aspirin 81 mg tablet,delayed release 81 mg PO DAILY heart health 11/24/17 [History Last Taken 01/19/19 16:00] ramipril 10 mg capsule 10 mg PO BID HEART 01/19/19 [History Last Taken 01/19/19 21:00] cholecalciferol (vitamin D3) 1,250 mcg (50,000 unit) capsule 1,250 mcg PO QWEEK SUPPLEMENT 12/03/19 [History Last Taken Unknown] furosemide 20 mg tablet 20 mg PO DAILY PRN water pill 01/22/21 [History Last Taken Unknown] insulin NPH isoph U-100 human 100 unit/mL subcutaneous suspension (Novolin N NPH U-100 Insulin isophane) 13 unit subcut QAM DIABETES 01/22/21 [History Last Taken Unknown] budesonide-formoterol HFA 160 mcg-4.5 mcg/actuation aerosol inhaler 2 puff inhalation BID ASTHMA 12/21/21 [History Last Taken Unknown] zolpidem 5 mg tablet 2.5 mg PO QHS PRN Insomnia 02/11/22 [History Last Taken Unknown] insulin glargine 100 unit/mL (3 mL) subcutaneous pen 24 unit subcut QHS DM 06/22/22 [History Last Taken Unknown] insulin lispro 100 unit/mL subcutaneous solution 6 unit subcut TIDCM dm 06/22/22 [History Last Taken Unknown] omeprazole magnesium 20 mg tablet,delayed release (Prilosec OTC) 20 mg PO DAILY GERD 06/22/22 [History Last Taken Unknown] albuterol sulfate 90 mcg/actuation aerosol inhaler (Ventolin HFA) 2 puff inhalation 4XD PRN sob #8.5 grams 07/14/22 [Rx Last Taken Unknown] amlodipine 5 mg tablet (Norvasc) 5 mg PO DAILY BLOOD PRESSURE 07/17/22 [History Last Taken Unknown] metoprolol tartrate 25 mg tablet 25 mg PO BID BLOOD PRESSURE 07/17/22 [History Last Taken Unknown] Allergy/AdvReac Type Severity Reaction Status Date / Time albuterol [From Ventolin HFA] Allergy Intermediate nausea, Verified 07/10/22 14:15 vomiting pravastatin Allergy Unknown unknown Verified 07/10/22 14:15 rosuvastatin [From Crestor] Allergy Unknown myalgias Verified 07/10/22 14:15 simvastatin Allergy Unknown unknown Verified 07/10/22 14:15 escitalopram Allergy Other Verified 07/10/22 14:15 hydrochlorothiazide Allergy Other Verified 07/10/22 14:15 Qaavvhr-APA-FbG Reductase AdvReac Severe myalgias Verified 07/10/22 14:15 Inhibitor [Unevsny-Hdn-Euu Reductase Inhibitor] codeine AdvReac Nausea Verified 07/10/22 14:15 naproxen [From Naprosyn] AdvReac Nausea Verified 07/10/22 14:15 Family History Mother Aortic stenosis Presence of permanent cardiac pacemaker Surgical History History of cholecystectomy History of tonsillectomy Social History household members: spouse Smoking Status: Former smoker alcohol intake: never substance use type: does not use ROS ROS Narrative Pertinent positives and pertinent negatives as noted in HPI. All other systems were reviewed and are negative Vital Signs Vital Signs Vital Signs: 07/17/22 22:30 07/17/22 22:35 07/17/22 22:42 Temperature 98.5 F 98.5 F Temperature Source Oral Oral Pulse Rate 86 74 Respiratory Rate 24 H 21 H Respiratory Effort Respiratory Depth Respiratory Pattern Blood Pressure 148/67 H 148/67 H Blood Pressure Mean 94 94 Pulse Ox 73 91 94 Oxygen Delivery Method Room Air Nasal Cannula Nasal Cannula Oxygen Flow Rate (L/min) 5 5 07/17/22 22:59 07/17/22 23:00 07/17/22 23:03 Temperature Temperature Source Pulse Rate 73 79 Respiratory Rate 18 18 Respiratory Effort Respiratory Depth Respiratory Pattern Normal Normal Blood Pressure Blood Pressure Mean Pulse Ox 94 Oxygen Delivery Method Nasal Cannula Oxygen Flow Rate (L/min) 4 07/18/22 01:26 07/18/22 01:26 07/18/22 01:51 Temperature Temperature Source Pulse Rate 96 98 Respiratory Rate 17 18 Respiratory Effort Short of Breath Respiratory Depth Shallow Respiratory Pattern Tachypnea Normal Blood Pressure 169/61 H Blood Pressure Mean 97 Pulse Ox 94 Oxygen Delivery Method Room Air Nasal Cannula Oxygen Flow Rate (L/min) 4 Weight Weight: 160.4 kg Body Mass Index (BMI) 52.2 Physical Exam Narrative Physical exam: General: Well-nourished, well-developed. Head: Normocephalic, atraumatic, no tenderness Eyes: Vision is grossly intact. EOMI ENT, no trauma, moist mucous membranes, no rhinorrhea Neck: Nontender, No thyromegaly. CVS: Regular rate and rhythm. S1-S2 present. No murmur, gallop or rub. Respiratory : Rhonchi and wheezing, chest wall nontender, no wheezing Abdomen: Soft, nontender, nondistended, normal bowel sounds, no masses : Deferred Back: Nontender, no CVA tenderness. Extremities: Bilateral feet in splints ( Charcot's foot) Skin: Normal color, no trauma, abrasions Neuro: Alert, oriented, cranial nerves II through XII grossly intact. Psychiatry: Normal mood. Normal affect. Not depressed. Not anxious. Results Lab / Micro Data Result Diagrams: 07/17/22 22:40 07/17/22 22:40 Labs: Laboratory Results - last 24 hr 07/17/22 22:40: WBC 6.5, RBC 4.06 L, Hgb 12.5, Hct 36.7 L, MCV 90.4, MCH 30.8, MCHC 34.1, RDW Std Deviation 40.5, RDW Coeff of Madalyn 12.2, Plt Count 201, MPV 12.2 H, Immature Gran % (Auto) 0.300, Neut % (Auto) 77.0 H, Lymph % (Auto) 13.1 L, [place] % (Auto) 8.6, Eos % (Auto) 0.8, Baso % (Auto) 0.2, Absolute Neuts (auto) 5.0, Absolute Lymphs (auto) 0.85, Nucleated RBC % 0 07/17/22 22:40: Sodium 139, Potassium 3.1 L, Chloride 99, Carbon Dioxide 35.0 H, Anion Gap 5, BUN 8, Creatinine 0.68, Estim Creat Clear Calc 50.02, Est GFR (MDRD) Af Amer 108, Est GFR (MDRD) Non-Af 89, BUN/Creatinine Ratio 11.8, Glucose 160 H, Calcium 8.2 L, Total Bilirubin 1.10 H, AST 14 L, ALT 20, Alkaline Phosphatase 79, Total Protein 6.8, Albumin 2.7 L, Globulin 4.1, Albumin/Globulin Ratio 0.7 L 07/17/22 22:47: Lactic Acid 1.2 ABG Data ABG results: ABG 07/18/22 01:15 Specimen Type ART Sample Site R Radial pH 7.44 Bicarbonate Actual 32.4 H Total CO2 34 Base Excess 8 H O2 Saturation 94 L ABG pCO2 47.5 H ABG pO2 68 L Devyn Test Positive O2 Delivery Device Cannula Liter Flow 4.0 Radiology Impression Chest X-Ray 07/17/22 23:20 IMPRESSION: Rest and mild perihilar interstitial infiltrates are not seen on the previous study. Electronically Signed: Matt Calero DO at 23:39 EST Reading Location ID and State: [address] [place] [address] Tel [phone], Service support , Assessment & Plan Assessment/Plan (1) Bilateral pneumonia: (2) Acute hypokalemia: PLAN: Plan Bilateral pneumonia/post influenza pneumonia/hypoxia Likely gram-positive, gram-negative or atypical. Had influenza A infection a week ago. Chest x-ray on presentation showed bilateral infiltrates. Chest x-ray was visualized and independently interpreted and I agree radiology interpretation Reportedly on presentation her oxygen saturation was 73% and she was cyanotic. Continue oxygen supplementation, titrate. Lactic acid: 1.2 CBC showed white count of 6.5, trend Respiratory Gram stain and culture pending Antibiotics : Given vancomycin and ceftriaxone at the emergency department. Ceftriaxone IV continued. Azithromycin ordered. Check MRSA nasal screen. DuoNeb scheduled. Albuterol as needed Legionella antigen screen and Strep antigen ordered. Insulin spirometer ordered. Mucinex ordered. Acute COPD exacerbation Scheduled DuoNeb Albuterol as needed Solu-Medrol 125 mg IV given at the emergency department. Prednisone 40 mg daily ordered. Antibiotics as above Monitor BMP and CBC Acute hypokalemia Potassium 3.1 on presentation. Reports multiple use of inhalers at home which could be contributing. P.o. potassium ordered. Trend BMP. Diabetes mellitus Patient with hyperglycemia on presentation Prandial insulin adjusted. Basal insulin continued. Monitor Accu-Cheks Correction scale insulin ordered. Hypertension Blood pressure is not within goal Amlodipine, omeprazole, and JOEY inhibitor continued. As needed hydralazine ordered. Trend blood pressure and adjust blood pressure medications. Morbid Obesity: BMI: 52.2 kg/m?. Complicates care. Lifestyle modification recommended. Obstructive sleep apnea Stable Home BiPAP continued. DVT prophylaxis Subcutaneous Lovenox ordered. Charges/Coding Visit Charges Inpatient E&M: 87972 Init Hosp L3
[2022-07-18] MEDS: guaiFENesin 1,200 MG Tablet 1200 MG PO ×3 (04:42→22:19)
[2022-07-18] MEDS: Potassium Chloride Oral Tablet 20 MEQ 40 MEQ PO ×2 (04:42→12:01)
[2022-07-18 06:11] LABS: Absolute Lymphocyte Count 0.41 X10^3/uL (0.83-4.51); Absolute Neutrophil Count 6.5 X10^3/uL (2.0-7.7); Basophil# 0.01 X10^3/uL; Basophil% 0.1 % (0-1); Hematocrit 38.7 % (37-47); Hemoglobin 12.7 g/dL (12.0-15.0); Lymphocyte # 0.41 X10^3/ul (0.83-4.51); Lymphocyte % 5.8 % (19-41); Mean Corp Hgb Conc 32.8 g/dL (32-36); Mean Corpuscular Hgb 30.1 pg (27.0-32.0); Mean Corpuscular Volume 91.7 fL (81-99); Mean Platelet Vol. 12.4 fl (6.2-12.0); Monocyte# 0.09 X10^3/uL; Monocyte% 1.3 % (0-10); NRBC Flagged by Analyzer 0 % (0-5); Neutrophil # 6.48 X10^3/uL (2.7-7.7); Neutrophil % 92.5 % (47-70); POSITIVE DIFFERENTIAL YES; Platelet Count 222 K/mm3 (150-450); RBC Distribution Width CV 12.4 % (11.6-14.6); RBC Distribution Width SD 41.4 fl (35.1-43.9); Red Blood Count 4.22 M/mm3 (4.2-5.4)
[2022-07-18 06:17] LABS: Differential Indicated SCAN CRITERIA MET
[2022-07-18 06:41] LABS: Anion Gap 11 (5-15); BUN 7 mg/dL (7-18); BUN/Creat Ratio 10.6 RATIO (10-20); Calcium,Total 8.4 mg/dL (8.5-10.1); Chloride 96 mmol/L (98-107); Creatinine, Serum 0.66 mg/dL (0.55-1.02); EST Glomerular Filtration Rate 92 mL/min (>60); Est Glom Filt Rate - Afr Amer 112 mL/min (>60); Estimated Creatinine Clearance 50.02 ml/min; Glucose 232 mg/dL (74-106); Potassium 3.2 mmol/L (3.5-5.1); Sodium Level 136 mmol/L (136-145)
[2022-07-18 06:47] LABS: Differential Comment SCANNED
[2022-07-18] MEDS: Ipratropium/Albuterol Sulfate 3 ML AMPUL.NEB INHALATION ×4 (07:25→19:16)
[2022-07-18] MEDS: predniSONE 20 MG Tablet 40 MG PO (08:37)
[2022-07-18] MEDS: Insulin Lispro 100 UNIT/ML INSULN.PEN SC ×7 (08:38→22:17)
[2022-07-18 09:01] LABS: Bedside Glucose 282 mg/dL (74-106)
[2022-07-18 09:15] LABS: M R Staph aureus DNA By PCR Negative (Negative); Probe Check PASS; Specimen Processing Control PASS
[2022-07-18] MEDS: Ramipril 10 MG Capsule PO ×2 (09:38→22:17)
[2022-07-18] MEDS: Pantoprazole Sodium 20 MG Tablet PO (09:38)
[2022-07-18] MEDS: amLODIPine 5 MG Tablet PO (09:38)
[2022-07-18] MEDS: Aspirin E.C. 81 MG Tablet PO (09:38)
[2022-07-18] MEDS: Metoprolol Tartrate 25 MG Tablet PO ×2 (09:38→22:18)
[2022-07-18] MEDS: Enoxaparin 40 MG/0.4 ML Syringe SC ×2 (09:44→22:19)
[2022-07-18] MEDS: Insulin NPH Human 100 UNITS/ML PEN 13 UNITS SC (09:44)
[2022-07-18 12:26] LABS: Bedside Glucose 363 mg/dL (74-106)
--- NOTE | 2022-07-18 14:37 | PCM.PN.HOSP ---
Subjective Subjective Feeling slightly better today, did confirm that she was wearing 2 L of home O2 but was not increasing this with ambulation she thought she was post be on 2 L at all times. Still coughing some. Objective Data Objective Data Vital Signs: Vital Signs Temp Pulse Resp BP Pulse Ox O2 Del Method O2 Flow Rate 97.7 F L 86 18 164/75 H 94 Nasal Cannula 4 07/18/22 09:25 07/18/22 11:02 07/18/22 11:02 07/18/22 09:25 07/18/22 09:25 07/18/22 09:25 07/18/22 09:25 FiO2 35 07/18/22 06:00 Oxygen Flow Rate (L/min) 4 Oxygen Delivery Method Nasal Cannula Weight: 155.8 kg Body Mass Index (BMI) 50.7 Intake & Output: Intake and Output for Last 24 Hours 07/16/22 07/17/22 07/18/22 23:59 23:59 23:59 Intake Total 1245 / 1245 Balance 1245 / 1245 Lab / Micro Data Result Diagrams: 07/18/22 05:21 07/18/22 05:21 Labs: Laboratory Results - last 24 hr 07/17/22 22:40: WBC 6.5, RBC 4.06 L, Hgb 12.5, Hct 36.7 L, MCV 90.4, MCH 30.8, MCHC 34.1, RDW Std Deviation 40.5, RDW Coeff of Madalyn 12.2, Plt Count 201, MPV 12.2 H, Immature Gran % (Auto) 0.300, Neut % (Auto) 77.0 H, Lymph % (Auto) 13.1 L, [place] % (Auto) 8.6, Eos % (Auto) 0.8, Baso % (Auto) 0.2, Absolute Neuts (auto) 5.0, Absolute Lymphs (auto) 0.85, Nucleated RBC % 0 07/17/22 22:40: Sodium 139, Potassium 3.1 L, Chloride 99, Carbon Dioxide 35.0 H, Anion Gap 5, BUN 8, Creatinine 0.68, Estim Creat Clear Calc 50.02, Est GFR (MDRD) Af Amer 108, Est GFR (MDRD) Non-Af 89, BUN/Creatinine Ratio 11.8, Glucose 160 H, Calcium 8.2 L, Total Bilirubin 1.10 H, AST 14 L, ALT 20, Alkaline Phosphatase 79, Total Protein 6.8, Albumin 2.7 L, Globulin 4.1, Albumin/Globulin Ratio 0.7 L 07/17/22 22:47: Lactic Acid 1.2 07/18/22 05:21: WBC 7.0, RBC 4.22, Hgb 12.7, Hct 38.7, MCV 91.7, MCH 30.1, MCHC 32.8, RDW Std Deviation 41.4, RDW Coeff of Madalyn 12.4, Plt Count 222, MPV 12.4 H, Immature Gran % (Auto) 0.300, Neut % (Auto) 92.5 H, Lymph % (Auto) 5.8 L, [place] % (Auto) 1.3, Eos % (Auto) 0.0, Baso % (Auto) 0.1, Absolute Neuts (auto) 6.5, Absolute Lymphs (auto) 0.41 L, Nucleated RBC % 0, Differential Comment SCANNED 07/18/22 05:21: Sodium 136, Potassium 3.2 L, Chloride 96 L, Carbon Dioxide 29.0, Anion Gap 11, BUN 7, Creatinine 0.66, Estim Creat Clear Calc 50.02, Est GFR (MDRD) Af Amer 112, Est GFR (MDRD) Non-Af 92, BUN/Creatinine Ratio 10.6, Glucose 232 H, Calcium 8.4 L 07/18/22 07:00: MRSA (PCR) Negative 07/18/22 08:29: POC Glucose 282 H 07/18/22 12:01: POC Glucose 363 H Micro: Microbiology 07/18/22 05:08 Urine, Clean Catch Streptococcus pneumoniae Antigen (M - Final 07/18/22 05:08 Urine, Clean Catch Legionella Antigen - Final ABG Data ABG results: ABG 07/18/22 01:15 Specimen Type ART Sample Site R Radial pH 7.44 Bicarbonate Actual 32.4 H Total CO2 34 Base Excess 8 H O2 Saturation 94 L ABG pCO2 47.5 H ABG pO2 68 L Devyn Test Positive O2 Delivery Device Cannula Liter Flow 4.0 Radiography Diagnostic Testing: Radiology Impression Chest X-Ray 07/17/22 23:20 IMPRESSION: Rest and mild perihilar interstitial infiltrates are not seen on the previous study. Electronically Signed: Matt Calero DO at 23:39 EST Reading Location ID and State: [address] [place] [address] Tel [phone], Service support , Physical Exam Const alert and no apparent distress Constitutional Narrative: Oriented HEENT normocephalic and head/scalp atraumatic Eyes Eyes Narrative: EOM grossly intact, anicteric Neck supple Resp Resp Narrative: Fairly normal respiratory effort, somewhat diminished at the bases Cardio regular rate and regular rhythm GI soft to palpation, non-tender and non-distended Extremity Extremity Narrative: No edema appreciated Neuro moves all extremities Neuro Narrative: No overt focal deficits appreciated Psych Psych Narrative: Cooperative Assessment & Plan Assessment/Plan (1) Bilateral pneumonia: (2) Acute hypokalemia: PLAN: Plan #Post influenza pneumonia causing acute exacerbation of COPD Chest x-ray with bilateral infiltrates, O2 was 73% on presentation Had influenza infection a week ago and initially got better and then began to worsen Started on azithromycin and Rocephin Cultures pending Duo nebs Urine antigens negative Mucinex, incentive spirometer On steroids #Type 2 diabetes mellitus Continue sliding scale and Accu-Cheks Glucose likely more elevated given infection and steroids Will adjust regimen, will likely need to begin to de-escalate as infection improves #Hypertension Amlodipine, JOEY, metoprolol Morbid Obesity: BMI: 52.2 kg/m?. Complicates care. Lifestyle modification recommended. Obstructive sleep apnea Stable Home BiPAP continued. DVT prophylaxis: Lovenox Charges/Coding Visit Charges Inpatient E&M: 72999 Subs Hosp L2
[2022-07-18 17:00] LABS: Bedside Glucose 369 mg/dL (74-106)
[2022-07-18] MEDS: Insulin Glargine-YFGN 100 UNIT/ML Pen 26 UNIT SC (22:18)
[2022-07-18] MEDS: 0.9% Saline Lock 10 ML Syringe IV (22:18)
--- NOTE | 2022-07-18 23:26 | CPS ---
[2317] Pt. politely refused BiPAP for the night. Pt. resting comfortably on 4L NC.
[2022-07-19] VITALS (16 sets, daily range): BP systolic 149–168; BP diastolic 68–87; PULSE 75–105; RESP 12–20; TEMP 36.4–36.6; O2SAT 93–97
[2022-07-19 00:11] LABS: Bedside Glucose 395 mg/dL (74-106)
--- NOTE | 2022-07-19 05:38 | NURSING ---
This RN was rounding and checked on the pt and noticed she had a change in mental status and began stating that she wasn't aware where she was and asking if she was close to home. Pt also stated that she thought multiple people in her room although it was just she and I in the room. I reoriented the pt, and she began to become less confused. Shortly after the pt began calling out from her room several times about hearing her family talking in the hallway. Staff checked on her and reoriented her and she calmed down. Shortly after I rechecked on the patient to get her vitals and she was oriented again and was up in the chair talking to me about how her breathing was doing and talking about how she was doing the previous evening. About an hour later the pt had come to the nurses station on her own with her oxygen off and was yelling out and she was very confused. Pt was swinging and scratching at the staff, and yelling out for everyone to back away. A kimberly melendez was then called. Staff attempted to reorient her and she eventually calmed down and agreed to sitting in a wheelchair and to put her oxygen back on. Upon pt request, the nursing grinding and spraying supervisor called the pt's and asked him to come in. Pt agreed to go back to her room to wait for her . gave this RN IV Haldol 2mg PRN Q4, not given at this time.
[2022-07-19] MEDS: Ipratropium/Albuterol Sulfate 3 ML AMPUL.NEB INHALATION ×3 (06:47→19:12)
[2022-07-19 07:44] LABS: Absolute Lymphocyte Count 0.58 X10^3/uL (0.83-4.51); Absolute Neutrophil Count 4.5 X10^3/uL (2.0-7.7); Hematocrit 38.3 % (37-47); Hemoglobin 12.2 g/dL (12.0-15.0); Lymphocyte # 0.58 X10^3/ul (0.83-4.51); Lymphocyte % 10.2 % (19-41); Mean Corp Hgb Conc 31.9 g/dL (32-36); Mean Corpuscular Hgb 29.4 pg (27.0-32.0); Mean Corpuscular Volume 92.3 fL (81-99); Mean Platelet Vol. 12.7 fl (6.2-12.0); Monocyte# 0.61 X10^3/uL; Monocyte% 10.7 % (0-10); NRBC Flagged by Analyzer 0 % (0-5); Neutrophil # 4.46 X10^3/uL (2.7-7.7); Neutrophil % 78.6 % (47-70); POSITIVE DIFFERENTIAL YES; Platelet Count 245 K/mm3 (150-450); RBC Distribution Width CV 12.5 % (11.6-14.6); RBC Distribution Width SD 42.5 fl (35.1-43.9); Red Blood Count 4.15 M/mm3 (4.2-5.4); White Blood Count 5.7 K/mm3 (4.4-11.0)
[2022-07-19 07:45] LABS: Differential Indicated SCAN CRITERIA MET
[2022-07-19 08:10] LABS: Anion Gap 4 (5-15); BUN 15 mg/dL (7-18); BUN/Creat Ratio 20.4 RATIO (10-20); Calcium,Total 8.8 mg/dL (8.5-10.1); Chloride 98 mmol/L (98-107); Creatinine, Serum 0.74 mg/dL (0.55-1.02); EST Glomerular Filtration Rate 82 mL/min (>60); Est Glom Filt Rate - Afr Amer 99 mL/min (>60); Estimated Creatinine Clearance 50.02 ml/min; Glucose 309 mg/dL (74-106); Potassium 3.6 mmol/L (3.5-5.1); Sodium Level 136 mmol/L (136-145)
[2022-07-19 08:46] LABS: Bedside Glucose 302 mg/dL (74-106)
[2022-07-19] MEDS: Insulin Lispro 100 UNIT/ML INSULN.PEN SC ×7 (09:03→22:52)
[2022-07-19] MEDS: predniSONE 20 MG Tablet 40 MG PO (09:05)
[2022-07-19] MEDS: Aspirin E.C. 81 MG Tablet PO (09:06)
[2022-07-19] MEDS: Enoxaparin 40 MG/0.4 ML Syringe SC ×2 (09:06→22:52)
[2022-07-19] MEDS: Ramipril 10 MG Capsule PO ×2 (09:06→22:52)
[2022-07-19] MEDS: guaiFENesin 1,200 MG Tablet 1200 MG PO ×2 (09:07→22:52)
[2022-07-19] MEDS: Metoprolol Tartrate 25 MG Tablet PO ×2 (09:07→22:52)
[2022-07-19] MEDS: Pantoprazole Sodium 20 MG Tablet PO (09:07)
[2022-07-19] MEDS: Insulin NPH Human 100 UNITS/ML PEN 13 UNITS SC (09:08)
[2022-07-19] MEDS: amLODIPine 5 MG Tablet PO (10:07)
[2022-07-19 10:43] LABS: Differential Comment SCANNED
[2022-07-19 12:10] LABS: Bedside Glucose 287 mg/dL (74-106)
--- NOTE | 2022-07-19 16:41 | PCM.PN.HOSP ---
Subjective Subjective Follow-up on hypoxia/acute COPD exacerbation: Patient was seen and examined. She reportedly has been intermittently confused. She is however alert oriented x3 to me at the time of exam. She remains on 2 L of oxygen. She admits to feeling weak. Objective Data Objective Data Vital Signs: Vital Signs Temp Pulse Resp BP Pulse Ox O2 Del Method O2 Flow Rate 97.8 F 87 18 149/68 H 93 Nasal Cannula 3 07/19/22 16:12 07/19/22 16:12 07/19/22 16:12 07/19/22 16:12 07/19/22 16:16 07/19/22 16:16 07/19/22 16:16 FiO2 35 07/18/22 06:00 Oxygen Flow Rate (L/min) 3 Oxygen Delivery Method Nasal Cannula Weight: 155.8 kg Body Mass Index (BMI) 50.7 Intake & Output: Intake and Output for Last 24 Hours 07/17/22 07/18/22 07/19/22 23:59 23:59 23:59 Intake Total 1795 / 1795 495 / 495 Output Total 650 / 650 Balance 1795 / 1145 -155 / -155 Lab / Micro Data Result Diagrams: 07/19/22 06:57 07/19/22 06:57 Labs: Laboratory Results - last 24 hr 07/18/22 16:34: POC Glucose 369 H 07/18/22 21:59: POC Glucose 395 H 07/19/22 06:57: WBC 5.7, RBC 4.15 L, Hgb 12.2, Hct 38.3, MCV 92.3, MCH 29.4, MCHC 31.9 L, RDW Std Deviation 42.5, RDW Coeff of Madalyn 12.5, Plt Count 245, MPV 12.7 H, Immature Gran % (Auto) 0.500, Neut % (Auto) 78.6 H, Lymph % (Auto) 10.2 L, [place] % (Auto) 10.7 H, Eos % (Auto) 0.0, Baso % (Auto) 0.0, Absolute Neuts (auto) 4.5, Absolute Lymphs (auto) 0.58 L, Nucleated RBC % 0, Differential Comment SCANNED 07/19/22 06:57: Sodium 136, Potassium 3.6, Chloride 98, Carbon Dioxide 34.0 H, Anion Gap 4 L, BUN 15, Creatinine 0.74, Estim Creat Clear Calc 50.02, Est GFR (MDRD) Af Amer 99, Est GFR (MDRD) Non-Af 82, BUN/Creatinine Ratio 20.4 H, Glucose 309 H, Calcium 8.8 07/19/22 08:24: POC Glucose 302 H 07/19/22 11:34: POC Glucose 287 H Micro: Microbiology 07/18/22 05:08 Urine, Clean Catch Streptococcus pneumoniae Antigen (M - Final 07/18/22 05:08 Urine, Clean Catch Legionella Antigen - Final Physical Exam Narrative Physical exam: General: Alert, Oriented x3, Cooperative, on 2 L of oxygen, morbidly obese HEENT: Atraumatic Oral: Moist Mucosa Neck: Supple Lungs: Diminished to auscultation Cardiovascular: HS I+II, regular, no murmurs Abdomen: Bowel Sounds Present, Soft, Non Tender Extremities: Bilateral leg/ foot braces Skin: No rashes, No breakdown Neurological: Grossly intact Psych/Mental Status: Appropriate Assessment & Plan Assessment/Plan (1) Bilateral pneumonia: (2) Acute hypokalemia: PLAN: Plan 1. Acute hypoxia secondary to acute bilateral community-acquired pneumonia/acute exacerbation of COPD Patient has slightly improved to 2 L of oxygen,O2 was 73% on presentation Chest x-ray with perihilar interstitial infiltrates Patient with recent influenza infection a week ago Blood cultures are pending, urine Legionella to continue negative Continue on IV ceftriaxone and azithromycin, breathing treatments, prednisone Encourage use of incentive spirometer 2. Hypertension, controlled, continue amlodipine, ramipril, metoprolol 3. Type 2 diabetes mellitus, blood sugars uncontrolled on account of prednisone Will continue with increase Lantus dose of 30units QHS, blood glucose check with insulin sliding scale 4. Morbid Obesity, BMI: 50.7kg/m?, complicates care. Lifestyle modification recommended. 5. Obstructive sleep apnea, continue on Bipap 6. DVT prophylaxis- Lovenox Charges/Coding Visit Charges Inpatient E&M: 96848 Subs Hosp L2
[2022-07-19 17:15] LABS: Bedside Glucose 203 mg/dL (74-106)
[2022-07-19] MEDS: Insulin Glargine-YFGN 100 UNIT/ML Pen 30 UNIT SC (22:52)
[2022-07-19] MEDS: Ceftriaxone 1 GM/50 ML BAG IV (22:59)
[2022-07-20] VITALS (15 sets, daily range): BP systolic 133–163; BP diastolic 57–76; PULSE 76–99; RESP 12–18; TEMP 36.5–37.3; O2SAT 90–96
--- NOTE | 2022-07-20 01:03 | CPS ---
Pt woke up confused and disoriented. Wanted Bipap off. RN took off bipap and re-applied nasal O2
[2022-07-20 01:26] LABS: Bedside Glucose 293 mg/dL (74-106)
[2022-07-20 05:54] LABS: Absolute Lymphocyte Count 1.07 X10^3/uL (0.83-4.51); Absolute Neutrophil Count 4.2 X10^3/uL (2.0-7.7); Basophil# 0.01 X10^3/uL; Basophil% 0.2 % (0-1); Hematocrit 37.4 % (37-47); Hemoglobin 12.1 g/dL (12.0-15.0); Lymphocyte # 1.07 X10^3/ul (0.83-4.51); Lymphocyte % 18.5 % (19-41); Mean Corp Hgb Conc 32.4 g/dL (32-36); Mean Corpuscular Hgb 29.9 pg (27.0-32.0); Mean Corpuscular Volume 92.3 fL (81-99); Mean Platelet Vol. 11.9 fl (6.2-12.0); Monocyte# 0.52 X10^3/uL; NRBC Flagged by Analyzer 0 % (0-5); Neutrophil # 4.16 X10^3/uL (2.7-7.7); Platelet Count 272 K/mm3 (150-450); RBC Distribution Width CV 12.5 % (11.6-14.6); RBC Distribution Width SD 42.4 fl (35.1-43.9); Red Blood Count 4.05 M/mm3 (4.2-5.4); White Blood Count 5.8 K/mm3 (4.4-11.0)
[2022-07-20 06:33] LABS: ALB/GLOB Ratio 0.6 RATIO (0.9-2.4); AST(SGOT) 10 U/L (15-37); Alanine Aminotransfer ALT/SGPT 22 U/L (13-56); Albumin, Serum 2.6 g/dL (3.2-5.0); Alkaline Phosphatase 70 U/L (45-117); Anion Gap 6 (5-15); BUN 16 mg/dL (7-18); BUN/Creat Ratio 23.3 RATIO (10-20); Calcium,Total 8.6 mg/dL (8.5-10.1); Chloride 99 mmol/L (98-107); Creatinine, Serum 0.69 mg/dL (0.55-1.02); EST Glomerular Filtration Rate 88 mL/min (>60); Est Glom Filt Rate - Afr Amer 107 mL/min (>60); Estimated Creatinine Clearance 50.02 ml/min; Glucose 193 mg/dL (74-106); Potassium 3.4 mmol/L (3.5-5.1); Protein, Total 6.6 g/dL (6.4-8.2); Sodium Level 139 mmol/L (136-145)
[2022-07-20] MEDS: Ipratropium/Albuterol Sulfate 3 ML AMPUL.NEB INHALATION ×4 (06:44→18:50)
[2022-07-20] MEDS: Insulin Lispro 100 UNIT/ML INSULN.PEN SC ×7 (07:44→21:37)
[2022-07-20] MEDS: predniSONE 20 MG Tablet 40 MG PO (07:45)
[2022-07-20] MEDS: 0.9% Saline Lock 10 ML Syringe IV ×3 (07:47→21:35)
[2022-07-20 08:20] LABS: Bedside Glucose 176 mg/dL (74-106)
--- NOTE | 2022-07-20 10:07 | PCM.TXEXTCAR ---
Diet Diet Order/Speech Therapy: 07/18/22 02:48 Diet: Consistent Carb - Calorie Controlled Food consistency:: Regular Liquid Consistency:: Regular/Thin Dietary Modifications:: Cardiac / Heart Healthy How many daily calories?: 1800 calorie Routine Orders/Code Status Suppository Type: Dulcolax 10mg Suppository Frequency: Daily PRN O2 Liters per Minute: 3 O2 Frequency: Continuous Keep PO Greater than or Equal to (%): 94 Routine Lab Work: CBC (within 3 days) and - (CMP within 3 days) Code Status: Full Code Therapies Weight Bearing: Weight bearing as tolerated Problem/Diagnosis (1) Bilateral pneumonia: Status: Acute Code(s): J18.9 - Pneumonia, unspecified organism (2) Acute hypokalemia: Status: Acute Code(s): E87.6 - Hypokalemia Plan 1. Acute hypoxia secondary to acute bilateral community-acquired pneumonia/acute exacerbation of COPD 2. Hypertension 3. Type 2 diabetes mellitus 4. Morbid Obesity, BMI: 50.7kg/m? 5. Obstructive sleep apnea Allergies/Procedures Done in Hospital Allergies albuterol [From Ventolin HFA] Allergy (Intermediate, Verified 07/10/22 14:15) nausea, vomiting pravastatin Allergy (Unknown, Verified 07/10/22 14:15) unknown rosuvastatin [From Crestor] Allergy (Unknown, Verified 07/10/22 14:15) myalgias simvastatin Allergy (Unknown, Verified 07/10/22 14:15) unknown escitalopram Allergy (Verified 07/10/22 14:15) Other hydrochlorothiazide Allergy (Verified 07/10/22 14:15) Other Imiwbqa-MMQ-YfZ Reductase Inhibitor [Xdnxykm-Vkd-Qnf Reductase Inhibitor] Adverse Reaction (Severe, Verified 07/10/22 14:15) myalgias codeine Adverse Reaction (Verified 07/10/22 14:15) Nausea naproxen [From Naprosyn] Adverse Reaction (Verified 07/10/22 14:15) Nausea Procedures: None Type of Care/Length of Stay Estimated LOS: Convalescent Care Less Than 30 days Type of Care Needed: Skilled Rehab Potential: Good Prognosis: Good Additional Orders/Day of Discharge Day of Discharge: 07/20/22 Dietary and Speech Recommendations Dietitian Recommendations/Changes: Continue 1800 calorie/consistent carbohydrate; cardiac diet. ONS not indicated at this time; offer only if PO fails at meals. Diet education as pt willing prior to d/c. Discharge Plan Admission Admit Date/Time: 07/18/22 01:39 Primary Reason for Your Visit: Pneumonia/Acute COPD exacerbation Attending Provider: Mei Garcia Primary Care Provider: Luzma Palencia Consulting Providers: Krystian Sandoval ; Floresita Howe Discharge Orders/Prescriptions Prescriptions: New albuterol sulfate 2.5 mg /3 mL (0.083 %) Solution For Nebulization 2.5 mg inhalation Q2H PRN PRN (Reason: Shortness of Breath/Wheezing) Qty: 0 0RF Mucus Relief ER 1,200 mg Tablet Extended Release 12hr 1,200 mg PO BID 7 Days Qty: 0 0RF insulin glargine-yfgn 100 unit/mL (3 mL) Insulin Pen 30 unit subcut QHS Qty: 0 0RF prednisone 10 mg tablet See Taper PO DAILY Qty: 30 0RF Taper: Prednisone Taper 40 mg WITH BREAKFAST for 3 Days and 0 Hour 30 mg WITH BREAKFAST for 3 Days and 0 Hour 20 mg WITH BREAKFAST for 3 Days and 0 Hour 10 mg WITH BREAKFAST for 3 Days and 0 Hour amoxicillin-pot clavulanate [Augmentin] 500-125 mg tablet 1 tab PO BID 7 Days Qty: 14 0RF Continued aspirin 81 mg tablet,delayed release (DR/EC) 81 mg PO DAILY cholecalciferol (vitamin D3) 1,250 mcg (50,000 unit) capsule 1,250 mcg PO QWEEK furosemide 20 mg tablet 20 mg PO DAILY PRN (Reason: water pill) Novolin N NPH U-100 Insulin 100 unit/mL suspension 13 unit subcut QAM insulin lispro 100 unit/mL solution 6 unit subcut TIDCM Protocol: 4. Sliding Scale Insulin High-Med Dosing Condition: 150-199 mg/dl = 2 units Condition: 200-259 mg/dl = 4 units Condition: 260-324 mg/dl = 6 units Condition: 325-374 mg/dl = 8 units Condition: 375-409 mg/dl = 10 units Condition: 410-449 mg/dl = 11 units Condition: Greater than 449 call physician Protocol Text: - Use for Total Daily Dose of Insulin 56-80 units - Patient who are insulin resistant or septic HIGH MEDIUM DOSING ALGORITHM Label Comments: INJECT 3 TO 10 UNITS SUBCUTANEOUSLY BEFORE MEALS DIRECTED budesonide-formoterol 160-4.5 mcg/actuation HFA aerosol inhaler 2 puff inhalation BID omeprazole magnesium [Prilosec OTC] 20 mg tablet,delayed release (DR/EC) 20 mg PO DAILY ramipril 10 MG capsule 10 mg PO BID Label Comments: TAKE 1 CAPSULE BY MOUTH TWICE DAILY zolpidem 5 mg Tablet 2.5 mg PO QHS PRN (Reason: Insomnia) albuterol sulfate [Ventolin HFA] 90 mcg/actuation HFA aerosol inhaler 2 puff INHALATION 4XD PRN (Reason: sob) Qty: 8.5 0RF Rx Instructions: use four times a day for the next seven days, then use every 6 hours as needed for shortness of breath amlodipine [Norvasc] 5 mg tablet 5 mg PO DAILY metoprolol tartrate 25 mg tablet 25 mg PO BID Discontinued insulin glargine 100 unit/mL (3 mL) insulin pen 24 unit subcut QHS Referrals / Follow Up: Luzma Palencia MD [Primary Care Provider] - Disposition Disposition (needs filled in before D/C Order can be placed): [facility] Facility
[2022-07-20] MEDS: Ramipril 10 MG Capsule PO ×2 (10:10→21:36)
[2022-07-20] MEDS: Enoxaparin 40 MG/0.4 ML Syringe SC ×2 (10:10→21:35)
[2022-07-20] MEDS: Metoprolol Tartrate 25 MG Tablet PO ×2 (10:10→21:36)
[2022-07-20] MEDS: amLODIPine 5 MG Tablet PO (10:10)
[2022-07-20] MEDS: guaiFENesin 1,200 MG Tablet 1200 MG PO ×2 (10:10→21:36)
[2022-07-20] MEDS: Pantoprazole Sodium 20 MG Tablet PO (10:10)
[2022-07-20] MEDS: Aspirin E.C. 81 MG Tablet PO (10:11)
--- NOTE | 2022-07-20 10:32 | DS.PCM_ITS ---
Providers Date of Admission: 07/18/22 Date of Discharge: 07/24/22 Primary Care Physician: Dr. Luzma Palencia MD Reason For Visit: BILATERAL POST-INFLUENZA PNEUMONIA Diagnosis Discharge Diagnosis (1) Bilateral pneumonia: Status: Acute Code(s): J18.9 - Pneumonia, unspecified organism (2) Acute hypokalemia: Status: Acute Code(s): E87.6 - Hypokalemia Plan 1. Acute hypoxia secondary to Acute bilateral community-acquired pneumonia 2. Acute COVID-19 infection with hypoxia 3. Acute exacerbation of COPD 2. Hypertension 3. Type 2 diabetes mellitus 4. Morbid Obesity, BMI: 50.7kg/m? 5. Obstructive sleep apnea Medications at Discharge Home Medications aspirin 81 mg tablet,delayed release 81 mg PO DAILY heart health 11/24/17 ramipril 10 mg capsule 10 mg PO BID HEART 01/19/19 cholecalciferol (vitamin D3) 1,250 mcg (50,000 unit) capsule 1,250 mcg PO QWEEK SUPPLEMENT 12/03/19 furosemide 20 mg tablet 20 mg PO DAILY PRN water pill 01/22/21 insulin NPH isoph U-100 human 100 unit/mL subcutaneous suspension (Novolin N NPH U-100 Insulin isophane) 13 unit subcut QAM DIABETES 01/22/21 budesonide-formoterol HFA 160 mcg-4.5 mcg/actuation aerosol inhaler 2 puff inhalation BID ASTHMA 12/21/21 zolpidem 5 mg tablet 2.5 mg PO QHS PRN Insomnia 02/11/22 insulin lispro 100 unit/mL subcutaneous solution 6 unit subcut TIDCM dm 06/22/22 omeprazole magnesium 20 mg tablet,delayed release (Prilosec OTC) 20 mg PO DAILY GERD 06/22/22 albuterol sulfate 90 mcg/actuation aerosol inhaler (Ventolin HFA) 2 puff inhalation 4XD PRN sob #8.5 grams 07/14/22 amlodipine 5 mg tablet (Norvasc) 5 mg PO DAILY BLOOD PRESSURE 07/17/22 metoprolol tartrate 25 mg tablet 25 mg PO BID BLOOD PRESSURE 07/17/22 guaifenesin 1,200 mg tablet, extended release 12 hr (Mucus Relief ER) 1,200 mg PO BID 7 days #0 tabs 07/20/22 quetiapine 25 mg tablet 12.5 mg PO QHS #0 tabs 07/22/22 cefdinir 300 mg capsule 300 mg PO BID 1 day #2 caps 07/24/22 dexamethasone 6 mg tablet 6 mg PO DAILY 7 days #7 tabs 07/24/22 insulin glargine-yfgn 100 unit/mL (3 mL) subcutaneous pen 50 unit (0.5 mL) subcut QHS 30 days #15 mL 07/24/22 Hospital Course Operations None Procedures None Summary of Care Provided Minutes Spent on Discharge: 35 Hospital Course: 76-year-old female with a past medical history of type II DM, bilateral Charcot's foot, COPD who was recently discharged on 07/14/22 after an admission for generalized malaise in which she was found to have influenza A. Patient was managed on Tamiflu and discharged home on 2 L oxygen at rest and 4 L of oxygen with exertion. Patient presented back on 07/18/22 with worsening hypoxia. At home, her oxygen sat was in the 70s she was short of breath and had a productive cough. Chest x-ray showed bilateral infiltrates. Patient was cyanotic and saturating 73%. Patient was admitted to the progressive care unit and managed as post influenza community-acquired pneumonia on IV ceftriaxone and azithromycin. She was also managed as acute COPD exacerbation. She also had evidence of hypokalemia. Her potassium was replaced. Throughout his hospital stay, patient had elevated blood sugars on account of her steroids and her insulin doses were adjusted. Patient did experience confusion and admitted to having some baseline cognitive impairment. TSH as well as B12 was unremarkable. Patient appeared to be more confused over the evening suggestive of sundowning. She did require a sitter couple of days. Discussed starting Seroquel with the patient, she agreed. I strongly discussed her confusion with her and the as well as her son. I recommended full evaluation in the outpatient. Patient's stated that he was unable to take care of her at home. Patient was hoping for discharge home. She was seen by PT and OT and skilled for discharge to retirement facility. On the day of discharge to retirement facility, preadmission COVID test came back positive. Patient's IV Solu-Medrol was switched to dexamethasone. She was kept fed in the hospital. PT and OT evaluated her and felt she was more stronger than previous and patient insisted on being discharged home with home health as she did not like the facilities that take care of COVID-patient. This was discussed with the patient extensively by myself and social work. Riddhi ent agreed to discharge home with home health with her son to support. She was discharged on 1 more day of antibiotics as well as 7 days of dexamethasone to make a total of 10 days. She did still require oxygen and was asked to continue on her oxygen all the time until she was reevaluated. She will need to follow- up with her primary care doctor within 1 to 2 weeks. Physical Exam Narrative Physical exam: General: Alert, Oriented x3, Cooperative, on 2 L of oxygen, morbidly obese HEENT: Atraumatic Oral: Moist Mucosa Neck: Supple Lungs: Diminished to auscultation Cardiovascular: HS I+II, regular, no murmurs Abdomen: Bowel Sounds Present, Soft, Non Tender Extremities: Bilateral leg/ foot braces Skin: No rashes, No breakdown Neurological: Grossly intact Psych/Mental Status: Appropriate Weight / BMI Weight Weight: 155.8 kg Body Mass Index (BMI) 50.7 ABG / Lab / Microbiology Data Result Diagrams: 07/24/22 06:49 07/24/22 06:49 Laboratory: Laboratory Results - last 24 hr 07/19/22 06:57: Differential Comment SCANNED 07/19/22 11:34: POC Glucose 287 H 07/19/22 16:50: POC Glucose 203 H 07/19/22 22:49: POC Glucose 293 H 07/20/22 05:39: WBC 5.8, RBC 4.05 L, Hgb 12.1, Hct 37.4, MCV 92.3, MCH 29.9, MCHC 32.4, RDW Std Deviation 42.4, RDW Coeff of Madalyn 12.5, Plt Count 272, MPV 11.9, Immature Gran % (Auto) 0.300, Neut % (Auto) 72.0 H, Lymph % (Auto) 18.5 L, [place] % (Auto) 9.0, Eos % (Auto) 0.0, Baso % (Auto) 0.2, Absolute Neuts (auto) 4.2, Absolute Lymphs (auto) 1.07, Nucleated RBC % 0 07/20/22 05:39: Sodium 139, Potassium 3.4 L, Chloride 99, Carbon Dioxide 34.0 H, Anion Gap 6, BUN 16, Creatinine 0.69, Estim Creat Clear Calc 50.02, Est GFR (MDRD) Af Amer 107, Est GFR (MDRD) Non-Af 88, BUN/Creatinine Ratio 23.3 H, Glucose 193 H, Calcium 8.6, Total Bilirubin 0.60, AST 10 L, ALT 22, Alkaline Phosphatase 70, Total Protein 6.6, Albumin 2.6 L, Globulin 4.0, Albumin/Globulin Ratio 0.6 L 07/20/22 07:42: POC Glucose 176 H Microbiology: Microbiology 07/18/22 05:08 Urine, Clean Catch Streptococcus pneumoniae Antigen (M - Final 07/18/22 05:08 Urine, Clean Catch Legionella Antigen - Final D/C Instructions Discharge Diet: 1800 Calorie Control Diet and 2000 mg Sodium Diet Discharge Activity: Return to Normal Activity Meaningful Use Info Meaningful Use Diagnoses (Choose all that apply): None applicable Discharge Plan Admission Admit Date/Time: 07/18/22 01:39 Primary Reason for Your Visit: Pneumonia/Acute COPD exacerbation Attending Provider: Mei Garcia Primary Care Provider: Luzma Palencia Consulting Providers: Krystian Sandoval ; Floresita Howe Instructions Additional Instructions / Restrictions: Continue to use incentive spirometer You will be followed up by home health Complete your antibiotics and dexamethasone Follow-up with your primary care doctor within 1 week Completed a 10-day quarantine (last day 08/01/22) Discharge Orders/Prescriptions Prescriptions: New Mucus Relief ER 1,200 mg Tablet Extended Release 12hr 1,200 mg PO BID 7 Days Qty: 0 0RF quetiapine 25 mg Tablet 12.5 mg PO QHS Qty: 0 0RF insulin glargine-yfgn 100 unit/mL (3 mL) Insulin Pen 50 unit subcut QHS 30 Days Qty: 15 0RF cefdinir 300 mg capsule 300 mg PO BID 1 Days Qty: 2 0RF dexamethasone 6 mg tablet 6 mg PO DAILY 7 Days Qty: 7 0RF Continued aspirin 81 mg tablet,delayed release (DR/EC) 81 mg PO DAILY cholecalciferol (vitamin D3) 1,250 mcg (50,000 unit) capsule 1,250 mcg PO QWEEK furosemide 20 mg tablet 20 mg PO DAILY PRN (Reason: water pill) Novolin N NPH U-100 Insulin 100 unit/mL suspension 13 unit subcut QAM insulin lispro 100 unit/mL solution 6 unit subcut TIDCM Protocol: 4. Sliding Scale Insulin High-Med Dosing Condition: 150-199 mg/dl = 2 units Condition: 200-259 mg/dl = 4 units Condition: 260-324 mg/dl = 6 units Condition: 325-374 mg/dl = 8 units Condition: 375-409 mg/dl = 10 units Condition: 410-449 mg/dl = 11 units Condition: Greater than 449 call physician Protocol Text: - Use for Total Daily Dose of Insulin 56-80 units - Patient who are insulin resistant or septic HIGH MEDIUM DOSING ALGORITHM Label Comments: INJECT 3 TO 10 UNITS SUBCUTANEOUSLY BEFORE MEALS DIRECTED budesonide-formoterol 160-4.5 mcg/actuation HFA aerosol inhaler 2 puff inhalation BID omeprazole magnesium [Prilosec OTC] 20 mg tablet,delayed release (DR/EC) 20 mg PO DAILY ramipril 10 MG capsule 10 mg PO BID Label Comments: TAKE 1 CAPSULE BY MOUTH TWICE DAILY zolpidem 5 mg Tablet 2.5 mg PO QHS PRN (Reason: Insomnia) albuterol sulfate [Ventolin HFA] 90 mcg/actuation HFA aerosol inhaler 2 puff INHALATION 4XD PRN (Reason: sob) Qty: 8.5 0RF Rx Instructions: use four times a day for the next seven days, then use every 6 hours as needed for shortness of breath amlodipine [Norvasc] 5 mg tablet 5 mg PO DAILY metoprolol tartrate 25 mg tablet 25 mg PO BID Discontinued insulin glargine 100 unit/mL (3 mL) insulin pen 24 unit subcut QHS Referrals / Follow Up: Luzma Palencia MD [Primary Care Provider] - 07/26/22 8:20 am Disposition Disposition (needs filled in before D/C Order can be placed): Home Health Ser vice Charges/Coding Visit Charges Inpatient E&M: 57373 Disch Hosp >30min
--- NOTE | 2022-07-20 10:32 | PCM.PN.HOSP ---
Subjective Subjective Follow-up on hypoxia/acute COPD exacerbation: Patient was seen and examined.?No report of confusion. She complains of constipation. Denies any chest pain or dizziness. Objective Data Objective Data Vital Signs: Vital Signs Temp Pulse Resp BP Pulse Ox O2 Del Method O2 Flow Rate 99.1 F 88 16 143/71 H 94 Nasal Cannula 3 07/20/22 10:04 07/20/22 10:10 07/20/22 10:04 07/20/22 10:10 07/20/22 10:04 07/20/22 10:04 07/20/22 10:04 FiO2 35 07/19/22 23:30 Oxygen Flow Rate (L/min) 3 Oxygen Delivery Method Nasal Cannula Weight: 155.8 kg Body Mass Index (BMI) 50.7 Intake & Output: Intake and Output for Last 24 Hours 07/18/22 07/19/22 07/20/22 23:59 23:59 23:59 Intake Total 1795 / 1795 895 / 895 Output Total 650 / 650 Balance 1795 / 1145 245 / 245 Lab / Micro Data Result Diagrams: 07/20/22 05:39 07/20/22 05:39 Labs: Laboratory Results - last 24 hr 07/19/22 06:57: Differential Comment SCANNED 07/19/22 11:34: POC Glucose 287 H 07/19/22 16:50: POC Glucose 203 H 07/19/22 22:49: POC Glucose 293 H 07/20/22 05:39: WBC 5.8, RBC 4.05 L, Hgb 12.1, Hct 37.4, MCV 92.3, MCH 29.9, MCHC 32.4, RDW Std Deviation 42.4, RDW Coeff of Madalyn 12.5, Plt Count 272, MPV 11.9, Immature Gran % (Auto) 0.300, Neut % (Auto) 72.0 H, Lymph % (Auto) 18.5 L, [place] % (Auto) 9.0, Eos % (Auto) 0.0, Baso % (Auto) 0.2, Absolute Neuts (auto) 4.2, Absolute Lymphs (auto) 1.07, Nucleated RBC % 0 07/20/22 05:39: Sodium 139, Potassium 3.4 L, Chloride 99, Carbon Dioxide 34.0 H, Anion Gap 6, BUN 16, Creatinine 0.69, Estim Creat Clear Calc 50.02, Est GFR (MDRD) Af Amer 107, Est GFR (MDRD) Non-Af 88, BUN/Creatinine Ratio 23.3 H, Glucose 193 H, Calcium 8.6, Total Bilirubin 0.60, AST 10 L, ALT 22, Alkaline Phosphatase 70, Total Protein 6.6, Albumin 2.6 L, Globulin 4.0, Albumin/Globulin Ratio 0.6 L 07/20/22 07:42: POC Glucose 176 H Micro: Microbiology 07/18/22 05:08 Urine, Clean Catch Streptococcus pneumoniae Antigen (M - Final 07/18/22 05:08 Urine, Clean Catch Legionella Antigen - Final Physical Exam Narrative Physical exam: General: Alert, Oriented x3, Cooperative, on 3 L of oxygen, morbidly obese HEENT: Atraumatic Oral: Moist Mucosa Neck: Supple Lungs: Diminished to auscultation Cardiovascular: HS I+II, regular, no murmurs Abdomen: Bowel Sounds Present, Soft, Non Tender Extremities: Bilateral leg/ foot braces Skin: No rashes, No breakdown Neurological: Grossly intact Psych/Mental Status: Appropriate Assessment & Plan Assessment/Plan (1) Acute respiratory failure with hypoxia: PLAN: Plan 1. Acute hypoxia secondary to acute bilateral community-acquired pneumonia/acute exacerbation of COPD Patient oxygenation is slightly worsened; currently on 3 L of oxygen Chest x-ray with perihilar interstitial infiltrates Patient with recent influenza A infection a week ago Blood cultures are pending, urine Legionella and streptococcal antigen are negative Continue on IV ceftriaxone and azithromycin, breathing treatments, prednisone Encourage use of incentive spirometer 2.? Hypertension, controlled, continue amlodipine, ramipril, metoprolol 3. Type 2 diabetes mellitus, blood sugars are better controlled today Continue on Lantus dose of 30units QHS, Humulin 13 units q am, Premeal insulin 3 units TID, blood glucose check with insulin sliding scale 4. Morbid Obesity, BMI: 50.7kg/m?, complicates care. Lifestyle modification recommended. 5. Obstructive sleep apnea, continue on Bipap 6. DVT prophylaxis- Lovenox Disposition: long term facility when approved Charges/Coding Visit Charges Inpatient E&M: 15589 Subs Hosp L2
[2022-07-20] MEDS: Potassium Chloride Oral Tablet 20 MEQ 60 MEQ PO (10:36)
[2022-07-20] MEDS: Insulin NPH Human 100 UNITS/ML PEN 13 UNITS SC (10:38)
[2022-07-20] MEDS: Furosemide 40 MG/4 ML Vial IV (12:04)
[2022-07-20] MEDS: Polyethylene Glycol 3350 17 GM PACKET PO (12:04)
[2022-07-20] MEDS: Bisacodyl 5 MG Tablet 10 MG PO (12:04)
[2022-07-20 12:45] LABS: Bedside Glucose 188 mg/dL (74-106)
--- NOTE | 2022-07-20 15:17 | CHAPLAIN ---
Type of Pastoral Visit _x__ Initial Visit ___ Follow-up Visit ___ On-call Visit ___ General Patient Visit ___ Spiritual Assessment ___ Family Conference ___ Bereavement ___ Rapid Response ___ Code Blue ___ Other (describe below) Pastoral Care Referral From _x__ Patient ___ Family ___ Nurse ___ Physician ___ Kennel Hand ___ Crane Manager ___ Other (describe below) Sacrament/Intervention _x__ Active listening ___ Anointing ___ Uatsdin ___ Bereavement ___ Communion ___ Donna exploration ___ _x__ Life review _x__ Prayer ___ Reconciliation ___ Sacrament of Sick _x__ Supportive presence ___ Wedding ___ Other (describe below) Pastoral Comments patient reports that she has had some improvements; pt admits that her concern is more for her who seems to have some unknown changes in his health; pt has worries about his health; pt welcomes prayer and someone to talk with at this time
--- NOTE | 2022-07-20 16:10 | CASEMGMT ---
DEONNA MARKS Follow-up: Met with pt at chairside regarding DC plan. Pt alert and conversive. Pt expressed concern with returning home and the extra work on her spouse and the ability to understand the management of her insulin. States she is agreeable to short term rehab at a SNF. List of SNF providers including quality and resource use data and consistent with pt's insurance network and geographic region provided. Pt states her first choice is [facility]. Call placed to Jackeline at [facility] with referral. Requested pt to review list for a second and third choice if TCU is unable to accept. Pt agreeable. Email also sent to Jackeline with referral information. Plan: [facility] pending acceptance. Joi Jackman RN CM
[2022-07-20 16:36] LABS: Bedside Glucose 255 mg/dL (74-106)
--- NOTE | 2022-07-20 17:17 | CASEMGMT ---
DEONNA CM: Referral to TCU received by Jackeline. No beds available on this date but potential availability tomorrow. Jackeline to review first thing in AM for acceptance. Joi Jackman RN CM
--- NOTE | 2022-07-20 21:33 | CPS ---
Pt declines use of bipap tonite...pt is confused at times. Staff is often orienting pt to place and time.
[2022-07-20] MEDS: Insulin Glargine-YFGN 100 UNIT/ML Pen 30 UNIT SC (21:36)
[2022-07-20] MEDS: Ceftriaxone 1 GM/50 ML BAG IV (21:37)
--- NOTE | 2022-07-20 22:14 | NURSING ---
pt chair alarm went off, upon entering the room. Pt was already standing up and attempting to remove IV line. This RN called for assistance and assisted pt back to bed. Pt confused and agitated, very suspicious about surrounding. This RN attempted to reorient pt, IV line mariano wrapped, bed alarm on for safety.
[2022-07-20] MEDS: Zolpidem Tartrate 5 MG Tablet 2.5 MG PO (22:15)
[2022-07-20] MEDS: Haloperidol Lactate 5 MG/ML Vial 2 MG IV (22:28)
[2022-07-20 23:32] LABS: Bedside Glucose 316 mg/dL (74-106)
[2022-07-21] VITALS (20 sets, daily range): BP systolic 122–163; BP diastolic 57–82; PULSE 65–96; RESP 16–24; TEMP 36.6–37; O2SAT 88–96
[2022-07-21] MEDS: 0.9% Saline Lock 10 ML Syringe IV ×2 (03:44→21:13)
[2022-07-21] MEDS: hydrALAZINE 20 MG/ML Vial 5 MG IV (03:44)
[2022-07-21] MEDS: Ipratropium/Albuterol Sulfate 3 ML AMPUL.NEB INHALATION ×4 (05:50→19:05)
[2022-07-21 06:56] LABS: Bedside Glucose 136 mg/dL (74-106)
[2022-07-21 07:21] LABS: Absolute Neutrophil Count 3.4 X10^3/uL (2.0-7.7); Basophil# 0.01 X10^3/uL; Basophil% 0.2 % (0-1); Eosinophil# 0.01 X10^3/uL; Eosinophils% 0.2 % (0-5); Hematocrit 39.2 % (37-47); Hemoglobin 12.3 g/dL (12.0-15.0); Mean Corp Hgb Conc 31.4 g/dL (32-36); Mean Corpuscular Hgb 29.1 pg (27.0-32.0); Mean Corpuscular Volume 92.9 fL (81-99); Mean Platelet Vol. 12.2 fl (6.2-12.0); Monocyte# 0.49 X10^3/uL; Monocyte% 9.8 % (0-10); NRBC Flagged by Analyzer 0 % (0-5); Neutrophil # 3.36 X10^3/uL (2.7-7.7); Neutrophil % 67.4 % (47-70); Platelet Count 277 K/mm3 (150-450); RBC Distribution Width CV 12.5 % (11.6-14.6); RBC Distribution Width SD 42.5 fl (35.1-43.9); Red Blood Count 4.22 M/mm3 (4.2-5.4)
[2022-07-21 07:45] LABS: ALB/GLOB Ratio 0.7 RATIO (0.9-2.4); AST(SGOT) 18 U/L (15-37); Alanine Aminotransfer ALT/SGPT 19 U/L (13-56); Albumin, Serum 2.8 g/dL (3.2-5.0); Alkaline Phosphatase 70 U/L (45-117); Anion Gap 6 (5-15); BUN 16 mg/dL (7-18); BUN/Creat Ratio 20.8 RATIO (10-20); Calcium,Total 8.7 mg/dL (8.5-10.1); Chloride 98 mmol/L (98-107); Creatinine, Serum 0.77 mg/dL (0.55-1.02); EST Glomerular Filtration Rate 77 mL/min (>60); Est Glom Filt Rate - Afr Amer 94 mL/min (>60); Estimated Creatinine Clearance 50.02 ml/min; Globulin 3.9 g/dL (2.2-4.2); Glucose 132 mg/dL (74-106); Potassium 3.3 mmol/L (3.5-5.1); Protein, Total 6.7 g/dL (6.4-8.2); Sodium Level 139 mmol/L (136-145)
[2022-07-21] MEDS: Pantoprazole Sodium 20 MG Tablet PO (08:29)
[2022-07-21] MEDS: amLODIPine 5 MG Tablet PO (08:29)
[2022-07-21] MEDS: Ramipril 10 MG Capsule PO ×2 (08:29→21:13)
[2022-07-21] MEDS: Insulin Lispro 100 UNIT/ML INSULN.PEN SC ×4 (08:29→21:12)
[2022-07-21] MEDS: predniSONE 20 MG Tablet 40 MG PO (08:29)
[2022-07-21] MEDS: Metoprolol Tartrate 25 MG Tablet PO ×2 (08:30→21:13)
[2022-07-21] MEDS: Insulin NPH Human 100 UNITS/ML PEN 13 UNITS SC (08:30)
[2022-07-21] MEDS: guaiFENesin 1,200 MG Tablet 1200 MG PO ×2 (08:30→21:13)
[2022-07-21] MEDS: Aspirin E.C. 81 MG Tablet PO (08:30)
[2022-07-21] MEDS: Enoxaparin 40 MG/0.4 ML Syringe SC ×2 (08:31→21:12)
[2022-07-21 09:01] LABS: Bedside Glucose 144 mg/dL (74-106)
--- NOTE | 2022-07-21 10:17 | NURSING ---
Rhett pulled at 1000.
--- NOTE | 2022-07-21 10:23 | CASEMGMT ---
SW went to patient's room to let patient and her know patient was accepted in TCU. SW then learned patient had an incident last night where she became confused and required a sitter. SW told patient's to talk with the physician about his concerns. SW also notified Jackeline with TCU patient will not be able to come today due to having a sitter. SW will talk with physician as well. Plan: [facility] pending patient being medically ready and not having a sitter or receiving Halodol. Dayanara VIVEROS
[2022-07-21 12:01] LABS: Bedside Glucose 109 mg/dL (74-106)
--- NOTE | 2022-07-21 12:29 | EKG12_ITS ---
Test Reason : DR ORDER Blood Pressure : / mmHG Vent. Rate : 088 BPM Atrial Rate : 088 BPM P-R Int : 128 ms QRS Dur : 070 ms QT Int : 366 ms P-R-T Axes : 069 042 057 degrees QTc Int : 442 ms Normal sinus rhythm Possible Left atrial enlargement Borderline ECG When compared with ECG of 17-JUL-2022 22:47, Premature atrial complexes are no longer Present Confirmed by THOMAS JOSE, BRIAN ([id number]), editor in chief newspaper MAMIE HENDERSON ([id number]) on 07/23/2022 6:40:21 AM Referred By: Confirmed By:URIEL GUZMAN MD
--- NOTE | 2022-07-21 12:31 | PN.HOSP_ITS ---
Subjective Subjective Follow-up on hypoxia/acute COPD exacerbation: Patient was seen and examined. She was confused and aggressive last night and required a sitter. Patient admitted to having memory problems ongoing for months. She admits to feeling confused when she wakes up in the middle of the night. There is no formal diagnosis of dementia and she agrees that she has concerns for her memory. Discussed use of Seroquel, patient agrees to use. Objective Data Objective Data Vital Signs: Vital Signs Temp Pulse Resp BP Pulse Ox O2 Del Method O2 Flow Rate 97.9 F 85 22 H 145/72 H 95 Nasal Cannula 3 07/21/22 08:25 07/21/22 10:52 07/21/22 10:52 07/21/22 08:30 07/21/22 08:43 07/21/22 08:43 07/21/22 08:43 FiO2 35 07/19/22 23:30 Oxygen Flow Rate (L/min) 3 Oxygen Delivery Method Nasal Cannula Weight: 155.8 kg Body Mass Index (BMI) 50.7 Intake & Output: Intake and Output for Last 24 Hours 07/19/22 07/20/22 07/21/22 23:59 23:59 23:59 Intake Total 945 / 945 605 / 605 255 / 255 Output Total 650 / 650 0 / 0 Balance 295 / 295 605 / 605 255 / 255 Lab / Micro Data Result Diagrams: 07/21/22 06:55 07/21/22 06:55 Labs: Laboratory Results - last 24 hr 07/20/22 10:35: POC Glucose 188 H 07/20/22 16:16: POC Glucose 255 H 07/20/22 21:34: POC Glucose 316 H 07/21/22 05:29: POC Glucose 136 H 07/21/22 06:55: WBC 5.0, RBC 4.22, Hgb 12.3, Hct 39.2, MCV 92.9, MCH 29.1, MCHC 31.4 L, RDW Std Deviation 42.5, RDW Coeff of Madalyn 12.5, Plt Count 277, MPV 12.2 H , Immature Gran % (Auto) 0.400, Neut % (Auto) 67.4, Lymph % (Auto) 22.0, [place] % (Auto) 9.8, Eos % (Auto) 0.2, Baso % (Auto) 0.2, Absolute Neuts (auto) 3.4, Absolute Lymphs (auto) 1.10, Nucleated RBC % 0 07/21/22 06:55: Sodium 139, Potassium 3.3 L, Chloride 98, Carbon Dioxide 35.0 H, Anion Gap 6, BUN 16, Creatinine 0.77, Estim Creat Clear Calc 50.02, Est GFR (MDRD) Af Amer 94, Est GFR (MDRD) Non-Af 77, BUN/Creatinine Ratio 20.8 H, Glucose 132 H, Calcium 8.7, Total Bilirubin 0.80, AST 18, ALT 19, Alkaline Phosphatase 70, Total Protein 6.7, Albumin 2.8 L, Globulin 3.9, Albumin/Globulin Ratio 0.7 L 07/21/22 08:24: POC Glucose 144 H 07/21/22 11:34: POC Glucose 109 H Micro: Microbiology 07/17/22 22:42 Blood Culture (Wb) - Left Wrist Blood Culture - Preliminary No growth in 48 hours. 07/17/22 22:55 Blood Culture (Wb) - No Site/Description Given Blood Culture - Preliminary No growth in 48 hours. 07/18/22 05:08 Urine, Clean Catch Streptococcus pneumoniae Antigen (M - Final 07/18/22 05:08 Urine, Clean Catch Legionella Antigen - Final Physical Exam Narrative Physical exam: General: Alert, Oriented x3, Cooperative, on 3 L of oxygen, morbidly obese HEENT: Atraumatic Oral: Moist Mucosa Neck: Supple Lungs: Diminished to auscultation Cardiovascular: HS I+II, regular, no murmurs Abdomen: Bowel Sounds Present, Soft, Non Tender Extremities: Bilateral leg/ foot braces Skin: No rashes, No breakdown Neurological: Grossly intact Psych/Mental Status: Appropriate Assessment & Plan Assessment/Plan (1) Acute respiratory failure with hypoxia: PLAN: Plan 1. Acute delirium in a patient with cognitive impairment, no formal diagnosis of dementia Likely related to current pneumonia Recent TSH was 2.08 Patient is agreeable to starting Seroquel after reviewing risks and benefits We will get an EKG to get baseline QTC 2. Acute hypoxia secondary to acute bilateral community-acquired pneumonia/acute exacerbation of COPD Patient remains on 3 L of oxygen Chest x-ray with perihilar interstitial infiltrates Patient with recent influenza A infection a week ago Blood cultures are pending, urine Legionella and streptococcal antigen are ne gative Continue on IV ceftriaxone and azithromycin, breathing treatments, prednisone Encourage use of incentive spirometer 3.?Hypertension, controlled, continue amlodipine, ramipril, metoprolol 4. Type 2 diabetes mellitus, blood sugars are better controlled today Continue on Lantus dose of 30units QHS, Humulin 13 units q am, Premeal insulin 3 units TID, blood glucose check with insulin sliding scale 5. Morbid Obesity, BMI: 50.7kg/m?, complicates care. Lifestyle modification recommended. 6. Obstructive sleep apnea, continue on Bipap 7. DVT prophylaxis- Lovenox [facility] Charges/Coding Visit Charges Inpatient E&M: 05973 Subs Hosp L2
[2022-07-21 17:00] LABS: Bedside Glucose 192 mg/dL (74-106)
[2022-07-21] MEDS: Ceftriaxone 1 GM/50 ML BAG IV (21:03)
[2022-07-21] MEDS: Insulin Glargine-YFGN 100 UNIT/ML Pen 30 UNIT SC (21:12)
[2022-07-21] MEDS: QUEtiapine 25 MG Tablet 12.5 MG PO (21:13)
[2022-07-21] MEDS: Potassium Chloride Oral Tablet 20 MEQ 60 MEQ PO (21:40)
[2022-07-21 21:50] LABS: Bedside Glucose 225 mg/dL (74-106)
--- NOTE | 2022-07-21 22:38 | CPS ---
Pt sleeping, called earlier for a breathing treatment. Will give when awake.
[2022-07-22] VITALS (15 sets, daily range): BP systolic 113–152; BP diastolic 54–73; PULSE 74–93; RESP 18–20; TEMP 36.6–37.1; O2SAT 94–96
[2022-07-22] MEDS: Ipratropium/Albuterol Sulfate 3 ML AMPUL.NEB INHALATION ×4 (05:38→18:48)
[2022-07-22] MEDS: 0.9% Saline Lock 10 ML Syringe IV (08:54)
[2022-07-22] MEDS: amLODIPine 5 MG Tablet PO (08:54)
[2022-07-22] MEDS: Enoxaparin 40 MG/0.4 ML Syringe SC ×2 (08:54→22:02)
[2022-07-22] MEDS: Pantoprazole Sodium 20 MG Tablet PO (08:54)
[2022-07-22] MEDS: guaiFENesin 1,200 MG Tablet 1200 MG PO ×2 (08:54→22:02)
[2022-07-22] MEDS: Ramipril 10 MG Capsule PO ×2 (08:54→21:59)
[2022-07-22] MEDS: Metoprolol Tartrate 25 MG Tablet PO ×2 (08:54→22:01)
[2022-07-22] MEDS: Aspirin E.C. 81 MG Tablet PO (08:54)
[2022-07-22] MEDS: predniSONE 20 MG Tablet 40 MG PO (08:55)
[2022-07-22 09:25] LABS: Bedside Glucose 93 mg/dL (74-106)
[2022-07-22] MEDS: Insulin Lispro 100 UNIT/ML INSULN.PEN SC ×5 (11:29→22:05)
[2022-07-22] MEDS: Insulin NPH Human 100 UNITS/ML PEN 13 UNITS SC (11:29)
[2022-07-22 11:55] LABS: Bedside Glucose 249 mg/dL (74-106)
--- NOTE | 2022-07-22 14:12 | PCM.TXEXTCAR ---
Diet Diet Order/Speech Therapy: 07/18/22 02:48 Diet: Consistent Carb - Calorie Controlled Food consistency:: Regular Liquid Consistency:: Regular/Thin Dietary Modifications:: Cardiac / Heart Healthy How many daily calories?: 1800 calorie Routine Orders/Code Status Suppository Type: Dulcolax 10mg Suppository Frequency: Daily PRN O2 Frequency: Continuous Keep PO Greater than or Equal to (%): 94 Routine Lab Work: CBC (within 3 days) and - (CMP within 3 days) Code Status: Full Code Therapies Weight Bearing: Weight bearing as tolerated Problem/Diagnosis (1) Acute respiratory failure with hypoxia: Status: Acute Code(s): J96.01 - Acute respiratory failure with hypoxia Plan 1. Acute delirium in a patient with cognitive impairment, no formal diagnosis of dementia Likely related to current pneumonia Recent TSH was 2.08 Patient is agreeable to starting Seroquel after reviewing risks and benefits We will get an EKG to get baseline QTC 2. Acute hypoxia secondary to acute bilateral community-acquired pneumonia/acute exacerbation of COPD Patient remains on 3 L of oxygen Chest x-ray with perihilar interstitial infiltrates Patient with recent influenza A infection a week ago Blood cultures are pending, urine Legionella and streptococcal antigen are negative Continue on IV ceftriaxone and azithromycin, breathing treatments, prednisone Encourage use of incentive spirometer 3.?Hypertension, controlled, continue amlodipine, ramipril, metoprolol 4. Type 2 diabetes mellitus, blood sugars are better controlled today Continue on Lantus dose of 30units QHS, Humulin 13 units q am, Premeal insulin 3 units TID, blood glucose check with insulin sliding scale 5. Morbid Obesity, BMI: 50.7kg/m?, complicates care. Lifestyle modification recommended. 6. Obstructive sleep apnea, continue on Bipap 7. DVT prophylaxis- Lovenox Disposition: snf facility when approved Allergies/Procedures Done in Hospital Allergies albuterol [From Ventolin HFA] Allergy (Intermediate, Verified 07/10/22 14:15) nausea, vomiting pravastatin Allergy (Unknown, Verified 07/10/22 14:15) unknown rosuvastatin [From Crestor] Allergy (Unknown, Verified 07/10/22 14:15) myalgias simvastatin Allergy (Unknown, Verified 07/10/22 14:15) unknown escitalopram Allergy (Verified 07/10/22 14:15) Other hydrochlorothiazide Allergy (Verified 07/10/22 14:15) Other Ghgruro-ODB-IoS Reductase Inhibitor [Nuczssp-Ifi-Rml Reductase Inhibitor] Adverse Reaction (Severe, Verified 07/10/22 14:15) myalgias codeine Adverse Reaction (Verified 07/10/22 14:15) Nausea naproxen [From Naprosyn] Adverse Reaction (Verified 07/10/22 14:15) Nausea Procedures: None Type of Care/Length of Stay Estimated LOS: Convalescent Care Less Than 30 days Type of Care Needed: Skilled Rehab Potential: Good Prognosis: Good Additional Orders/Day of Discharge Day of Discharge: 07/20/22 Dietary and Speech Recommendations Dietitian Recommendations/Changes: Continue 1800 calorie/consistent carbohydrate; cardiac diet. ONS not indicated at this time; offer only if PO fails at meals. Diet education as pt willing prior to d/c. Discharge Plan Admission Admit Date/Time: 07/18/22 01:39 Primary Reason for Your Visit: Pneumonia/Acute COPD exacerbation Attending Provider: Mei Garcia Primary Care Provider: Luzma Palencia Consulting Providers: Krystian Sandoval ; Floresita Howe Discharge Orders/Prescriptions Prescriptions: New albuterol sulfate 2.5 mg /3 mL (0.083 %) Solution For Nebulization 2.5 mg inhalation Q2H PRN PRN (Reason: Shortness of Breath/Wheezing) Qty: 0 0RF Mucus Relief ER 1,200 mg Tablet Extended Release 12hr 1,200 mg PO BID 7 Days Qty: 0 0RF insulin glargine-yfgn 100 unit/mL (3 mL) Insulin Pen 30 unit subcut QHS Qty: 0 0RF prednisone 10 mg tablet See Taper PO DAILY Qty: 30 0RF Taper: Prednisone Taper 40 mg WITH BREAKFAST for 3 Days and 0 Hour 30 mg WITH BREAKFAST for 3 Days and 0 Hour 20 mg WITH BREAKFAST for 3 Days and 0 Hour 10 mg WITH BREAKFAST for 3 Days and 0 Hour amoxicillin-pot clavulanate [Augmentin] 500-125 mg tablet 1 tab PO BID 7 Days Qty: 14 0RF Continued aspirin 81 mg tablet,delayed release (DR/EC) 81 mg PO DAILY cholecalciferol (vitamin D3) 1,250 mcg (50,000 unit) capsule 1,250 mcg PO QWEEK furosemide 20 mg tablet 20 mg PO DAILY PRN (Reason: water pill) Novolin N NPH U-100 Insulin 100 unit/mL suspension 13 unit subcut QAM insulin lispro 100 unit/mL solution 6 unit subcut TIDCM Protocol: 4. Sliding Scale Insulin High-Med Dosing Condition: 150-199 mg/dl = 2 units Condition: 200-259 mg/dl = 4 units Condition: 260-324 mg/dl = 6 units Condition: 325-374 mg/dl = 8 units Condition: 375-409 mg/dl = 10 units Condition: 410-449 mg/dl = 11 units Condition: Greater than 449 call physician Protocol Text: - Use for Total Daily Dose of Insulin 56-80 units - Patient who are insulin resistant or septic HIGH MEDIUM DOSING ALGORITHM Label Comments: INJECT 3 TO 10 UNITS SUBCUTANEOUSLY BEFORE MEALS DIRECTED budesonide-formoterol 160-4.5 mcg/actuation HFA aerosol inhaler 2 puff inhalation BID omeprazole magnesium [Prilosec OTC] 20 mg tablet,delayed release (DR/EC) 20 mg PO DAILY ramipril 10 MG capsule 10 mg PO BID Label Comments: TAKE 1 CAPSULE BY MOUTH TWICE DAILY zolpidem 5 mg Tablet 2.5 mg PO QHS PRN (Reason: Insomnia) albuterol sulfate [Ventolin HFA] 90 mcg/actuation HFA aerosol inhaler 2 puff INHALATION 4XD PRN (Reason: sob) Qty: 8.5 0RF Rx Instructions: use four times a day for the next seven days, then use every 6 hours as needed for shortness of breath amlodipine [Norvasc] 5 mg tablet 5 mg PO DAILY metoprolol tartrate 25 mg tablet 25 mg PO BID Discontinued insulin glargine 100 unit/mL (3 mL) insulin pen 24 unit subcut QHS Referrals / Follow Up: Luzma Palencia MD [Primary Care Provider] - Disposition Disposition (needs filled in before D/C Order can be placed): Long-Term Facility
[2022-07-22 17:10] LABS: Bedside Glucose 257 mg/dL (74-106)
--- NOTE | 2022-07-22 19:19 | PCM.PN.HOSP ---
Subjective Subjective Follow-up on hypoxia/acute COPD exacerbation: Patient was seen and examined.? Patient was going to be discharged today. She was on status of oxygen. She was found incidentally to be COVID Objective Data Objective Data Vital Signs: Vital Signs Temp Pulse Resp BP Pulse Ox O2 Del Method O2 Flow Rate 98.8 F 85 18 152/66 H 96 Nasal Cannula 2 07/22/22 16:46 07/22/22 16:46 07/22/22 16:46 07/22/22 16:46 07/22/22 16:46 07/22/22 16:46 07/22/22 16:46 FiO2 35 07/19/22 23:30 Oxygen Flow Rate (L/min) 2 Oxygen Delivery Method Nasal Cannula Weight: 155.8 kg Body Mass Index (BMI) 50.7 Intake & Output: Intake and Output for Last 24 Hours 07/20/22 07/21/22 07/22/22 23:59 23:59 23:59 Intake Total 605 / 605 305 / 305 555 / 555 Output Total 0 / 0 Balance 605 / 605 305 / 305 555 / 555 Lab / Micro Data Result Diagrams: 07/21/22 06:55 07/21/22 06:55 Labs: Laboratory Results - last 24 hr 07/21/22 21:10: POC Glucose 225 H 07/22/22 08:48: POC Glucose 93 07/22/22 11:03: POC Glucose 249 H 07/22/22 15:23: COVID-19 ([facility]) Detected 07/22/22 16:46: POC Glucose 257 H Micro: Microbiology 07/22/22 14:35 Nasal Secretion SARS-CoV-2 Antigen (Rapid) - Final SARS-CoV-2 (COVID 19) 07/17/22 22:42 Blood Culture (Wb) - Left Wrist Blood Culture - Preliminary No growth in 48 hours. 07/17/22 22:55 Blood Culture (Wb) - No Site/Description Given Blood Culture - Preliminary No growth in 48 hours. 07/18/22 05:08 Urine, Clean Catch Streptococcus pneumoniae Antigen (M - Final 07/18/22 05:08 Urine, Clean Catch Legionella Antigen - Final Physical Exam Narrative Physical exam: General: Alert, Oriented x3, Cooperative, on 3 L of oxygen, morbidly obese HEENT: Atraumatic Oral: Moist Mucosa Neck: Supple Lungs: Diminished to auscultation Cardiovascular: HS I+II, regular, no murmurs Abdomen: Bowel Sounds Present, Soft, Non Tender Extremities: Bilateral leg/ foot braces Skin: No rashes, No breakdown Neurological: Grossly intact Psych/Mental Status: Appropriate Const alert and no apparent distress Constitutional Narrative: Oriented HEENT normocephalic and head/scalp atraumatic Eyes Eyes Narrative: EOM grossly intact, anicteric Neck supple Resp Resp Narrative: Fairly normal respiratory effort, somewhat diminished at the bases Cardio regular rate and regular rhythm GI soft to palpation, non-tender and non-distended Extremity Extremity Narrative: No edema appreciated Neuro moves all extremities Neuro Narrative: No overt focal deficits appreciated Psych Psych Narrative: Cooperative Assessment & Plan Assessment/Plan (1) Acute respiratory failure with hypoxia: PLAN: Plan 1. Acute COVID-19 infection with hypoxia, incidentally found prior to discharge Unclear how long patient has had COVID, will continue on dexamethasone IV Reassess in a.m. 2. Acute delirium in a patient with cognitive impairment, no formal diagnosis of dementia Appears improved, did not require sitter Likely related to current pneumonia Recent TSH was 2.08 Continue on Seroquel 3. Acute hypoxia secondary to acute bilateral community-acquired pneumonia/acute exacerbation of COPD Patient remains on 3 L of oxygen Chest x-ray with perihilar interstitial infiltrates Patient with recent influenza A infection a week ago Blood cultures are pending, urine Legionella and streptococcal antigen are negative Continue on IV ceftriaxone and azithromycin, breathing treatments, prednisone Encourage use of incentive spirometer 4.?Hypertension, controlled, continue amlodipine, ramipril, metoprolol 5. Type 2 diabetes mellitus, blood sugars are better controlled today Continue on Lantus dose of 30units QHS, Humulin 13 units q am, Premeal insulin 3 units TID, blood glucose check with insulin sliding scale 6. Morbid Obesity, BMI: 50.7kg/m?, complicates care. Lifestyle modification recommended. 7. Obstructive sleep apnea, continue on Bipap 8. DVT prophylaxis- Lovenox Disposition: half-way facility when approved Charges/Coding Visit Charges Inpatient E&M: 29693 Subs Hosp L2
[2022-07-22] MEDS: dexAMETHasone 10 MG/ML Vial 6 MG IV (21:54)
[2022-07-22] MEDS: Ceftriaxone 1 GM/50 ML BAG IV (21:57)
[2022-07-22] MEDS: QUEtiapine 25 MG Tablet 12.5 MG PO (22:00)
[2022-07-22] MEDS: Insulin Glargine-YFGN 100 UNIT/ML Pen 30 UNIT SC (22:04)
[2022-07-22 22:17] LABS: ALB/GLOB Ratio 0.8 RATIO (0.9-2.4); AST(SGOT) 22 U/L (15-37); Alanine Aminotransfer ALT/SGPT 27 U/L (13-56); Albumin, Serum 2.9 g/dL (3.2-5.0); Alkaline Phosphatase 71 U/L (45-117); Anion Gap 6 (5-15); BUN 15 mg/dL (7-18); BUN/Creat Ratio 18.7 RATIO (10-20); Calcium,Total 9.1 mg/dL (8.5-10.1); Chloride 100 mmol/L (98-107); EST Glomerular Filtration Rate 74 mL/min (>60); Est Glom Filt Rate - Afr Amer 89 mL/min (>60); Estimated Creatinine Clearance 62.52 ml/min; Globulin 3.7 g/dL (2.2-4.2); Glucose 218 mg/dL (74-106); Potassium 3.9 mmol/L (3.5-5.1); Protein, Total 6.6 g/dL (6.4-8.2); Sodium Level 137 mmol/L (136-145)
[2022-07-22 23:40] LABS: Bedside Glucose 210 mg/dL (74-106)
[2022-07-23] VITALS (14 sets, daily range): BP systolic 130–175; BP diastolic 65–81; PULSE 70–93; RESP 18–20; TEMP 36.2–37; O2SAT 89–96
[2022-07-23] MEDS: Albuterol 2.5 MG/3 ML VIAL.NEB. INHALATION (05:09)
--- NOTE | 2022-07-23 05:11 | CPS ---
called by nurse to give pt a prn aero tx-pt sleeping when entered room-no resp distress noted at this time
[2022-07-23 06:33] LABS: Absolute Lymphocyte Count 0.54 X10^3/uL (0.83-4.51); Absolute Neutrophil Count 5.1 X10^3/uL (2.0-7.7); Basophil# 0.01 X10^3/uL; Basophil% 0.2 % (0-1); Hematocrit 40.8 % (37-47); Hemoglobin 12.8 g/dL (12.0-15.0); Lymphocyte # 0.54 X10^3/ul (0.83-4.51); Lymphocyte % 9.1 % (19-41); Mean Corp Hgb Conc 31.4 g/dL (32-36); Mean Corpuscular Hgb 29.4 pg (27.0-32.0); Mean Corpuscular Volume 93.8 fL (81-99); Mean Platelet Vol. 11.9 fl (6.2-12.0); Monocyte# 0.22 X10^3/uL; Monocyte% 3.7 % (0-10); NRBC Flagged by Analyzer 0 % (0-5); Neutrophil # 5.13 X10^3/uL (2.7-7.7); Neutrophil % 86.5 % (47-70); POSITIVE DIFFERENTIAL YES; Platelet Count 267 K/mm3 (150-450); RBC Distribution Width CV 12.6 % (11.6-14.6); RBC Distribution Width SD 43.4 fl (35.1-43.9); Red Blood Count 4.35 M/mm3 (4.2-5.4); White Blood Count 5.9 K/mm3 (4.4-11.0)
[2022-07-23 06:38] LABS: Differential Indicated SCAN CRITERIA MET
[2022-07-23] MEDS: Ipratropium/Albuterol Sulfate 3 ML AMPUL.NEB INHALATION ×5 (06:55→23:30)
[2022-07-23 07:01] LABS: Differential Comment SCANNED
[2022-07-23 07:11] LABS: ALB/GLOB Ratio 0.7 RATIO (0.9-2.4); AST(SGOT) 18 U/L (15-37); Alanine Aminotransfer ALT/SGPT 27 U/L (13-56); Albumin, Serum 2.6 g/dL (3.2-5.0); Alkaline Phosphatase 68 U/L (45-117); Anion Gap 8 (5-15); BUN 14 mg/dL (7-18); BUN/Creat Ratio 19.3 RATIO (10-20); Calcium,Total 8.7 mg/dL (8.5-10.1); Chloride 100 mmol/L (98-107); Creatinine, Serum 0.73 mg/dL (0.55-1.02); EST Glomerular Filtration Rate 83 mL/min (>60); Est Glom Filt Rate - Afr Amer 100 mL/min (>60); Estimated Creatinine Clearance 50.02 ml/min; Globulin 3.6 g/dL (2.2-4.2); Glucose 218 mg/dL (74-106); Potassium 4.3 mmol/L (3.5-5.1); Protein, Total 6.2 g/dL (6.4-8.2); Sodium Level 140 mmol/L (136-145)
[2022-07-23] MEDS: Insulin Lispro 100 UNIT/ML INSULN.PEN SC ×7 (08:18→21:04)
[2022-07-23] MEDS: Enoxaparin 40 MG/0.4 ML Syringe SC ×2 (08:18→21:13)
[2022-07-23] MEDS: Aspirin E.C. 81 MG Tablet PO (08:19)
[2022-07-23] MEDS: Metoprolol Tartrate 25 MG Tablet PO ×2 (08:19→20:59)
[2022-07-23] MEDS: Pantoprazole Sodium 20 MG Tablet PO (08:19)
[2022-07-23] MEDS: guaiFENesin 1,200 MG Tablet 1200 MG PO ×2 (08:19→20:59)
[2022-07-23] MEDS: amLODIPine 5 MG Tablet PO (08:19)
[2022-07-23] MEDS: Ramipril 10 MG Capsule PO ×2 (08:19→20:59)
[2022-07-23] MEDS: dexAMETHasone 10 MG/ML Vial 6 MG IV (08:19)
[2022-07-23 08:50] LABS: Bedside Glucose 228 mg/dL (74-106)
--- NOTE | 2022-07-23 09:52 | CASEMGMT ---
Patient's PCR test was positive for COVID. SW met with patient. SW let patient know she will not be able to go to TCU due to having COVID. Patient verbalized understanding. SW provided patient with a list of prison facility?providers including quality and resource use data and consistent with patient?s preferred geographic region, medical needs, and insurance network were provided from [facility]. There are only 3 local facilities patient has to choose from due to her insurance and being positive for COVID. Patient expressed concern with going to these facilities due to past experiences. SW told patient to talk with her and SW will check with therapy to see their thoughts. SW spoke with Zahra from therapy and she feels patient did fine and would be fine for home with home health. SW will check back with patient. Dayanara VIVEROS
[2022-07-23] MEDS: Insulin NPH Human 100 UNITS/ML PEN 13 UNITS SC (10:58)
--- NOTE | 2022-07-23 11:14 | CASEMGMT ---
SW spoke with patient and let her know therapy feels she is fine for home with home health. Patient mentioned she would like [facility]. SW offered a list, but patient declined. SW did make a referral to [facility] and they can take patient. Patient will have Group Home, PT, and OT. SW did notify patient of this information and that someone from [facility] will be calling her. Patient was in agreement with this plan. Plan: d/c home with [facility] Group Home, PT, and OT. Dayanara VIVEROS
[2022-07-23 11:25] LABS: Bedside Glucose 285 mg/dL (74-106)
--- NOTE | 2022-07-23 13:00 | CASEMGMT ---
RN let SW know patient is concerned about going home with COVID. SW spoke with patient and she had questions regarding is she cleared from the Flu or COVID. She asked if she will be on medications at d/c to get rid of COVID. SW told her SW will see if the physician can talk with her. Patient said she would appreciate that. SW notified physician. Dayanara Phillips CORRESPONDENCE REPRESENTATIVE FELICE
--- NOTE | 2022-07-23 16:00 | CASEMGMT ---
SW and physician spoke extensively with patient, her , and their son. It was decided patient will go home with home health tomorrow, Tuesday. [facility] will be out on Tuesday. SW asked home health to call patient's son to arrange visit. SW also let [facility] know that patient will be going home tomorrow. Plan: d/c home tomorrow with [facility], PT, and OT. Dayanara VIVEROS
[2022-07-23 17:30] LABS: Bedside Glucose 313 mg/dL (74-106)
--- NOTE | 2022-07-23 18:00 | PCM.PN.HOSP ---
Subjective Subjective Follow-up on hypoxia/acute COPD exacerbation: Patient was seen and examined.? Patient declined discharge to [facility] as she did not like the facilities. She was seen by therapy again and okayed for discharge with home health. Patient expressed concern over support from . Home health will start on Tuesday. She was interested in private duty care nurses for about a week. Social work worked with patient and her son. Discussed on phone with his son about his overall care. His son will pick her up tomorrow and stay with her until home health settles in with patient. Objective Data Objective Data Vital Signs: Vital Signs Temp Pulse Resp BP Pulse Ox O2 Del Method O2 Flow Rate 97.2 F L 88 20 H 130/65 H 94 Nasal Cannula 2 07/23/22 14:54 07/23/22 15:01 07/23/22 15:01 07/23/22 14:54 07/23/22 14:54 07/23/22 14:54 07/23/22 14:54 FiO2 35 07/19/22 23:30 Oxygen Flow Rate (L/min) [ 4 AMBULATING with Oxygen #1] Oxygen Flow Rate (L/min) [At 2 REST with Oxygen] Oxygen Flow Rate (L/min) 2 Oxygen Delivery Method Nasal Cannula Weight: 155.8 kg Body Mass Index (BMI) 50.7 Intake & Output: Intake and Output for Last 24 Hours 07/21/22 07/22/22 07/23/22 23:59 23:59 23:59 Intake Total 305 / 305 605 / 605 255 / 255 Output Total 0 / 0 Balance 305 / 305 605 / 605 255 / 255 Lab / Micro Data Result Diagrams: 07/23/22 06:10 07/23/22 06:10 Labs: Laboratory Results - last 24 hr 07/22/22 15:23: COVID-19 ([facility]) Detected 07/22/22 21:30: Sodium 137, Potassium 3.9, Chloride 100, Carbon Dioxide 31.0, Anion Gap 6, BUN 15, Creatinine 0.80, Estim Creat Clear Calc 62.52, Est GFR (MDRD) Af Amer 89, Est GFR (MDRD) Non-Af 74, BUN/Creatinine Ratio 18.7, Glucose 218 H, Calcium 9.1, Total Bilirubin 0.90, AST 22, ALT 27, Alkaline Phosphatase 71, Total Protein 6.6, Albumin 2.9 L, Globulin 3.7, Albumin/Globulin Ratio 0.8 L 07/22/22 21:53: POC Glucose 210 H 07/23/22 06:10: WBC 5.9, RBC 4.35, Hgb 12.8, Hct 40.8, MCV 93.8, MCH 29.4, MCHC 31.4 L, RDW Std Deviation 43.4, RDW Coeff of Madalyn 12.6, Plt Count 267, MPV 11.9, Immature Gran % (Auto) 0.500, Neut % (Auto) 86.5 H, Lymph % (Auto) 9.1 L, Calhoun % (Auto) 3.7, Eos % (Auto) 0.0, Baso % (Auto) 0.2, Absolute Neuts (auto) 5.1, Absolute Lymphs (auto) 0.54 L, Nucleated RBC % 0, Differential Comment SCANNED 07/23/22 06:10: Sodium 140, Potassium 4.3, Chloride 100, Carbon Dioxide 32.0, Anion Gap 8, BUN 14, Creatinine 0.73, Estim Creat Clear Calc 50.02, Est GFR (MDRD) Af Amer 100, Est GFR (MDRD) Non-Af 83, BUN/Creatinine Ratio 19.3, Glucose 218 H, Calcium 8.7, Total Bilirubin 0.60, AST 18, ALT 27, Alkaline Phosphatase 68, Total Protein 6.2 L, Albumin 2.6 L, Globulin 3.6, Albumin/Globulin Ratio 0.7 L 07/23/22 08:12: POC Glucose 228 H 07/23/22 10:57: POC Glucose 285 H 07/23/22 17:07: POC Glucose 313 H Micro: Microbiology 07/17/22 22:42 Blood Culture (Wb) - Left Wrist Blood Culture - Final No growth in 5 days. 07/17/22 22:55 Blood Culture (Wb) - No Site/Description Given Blood Culture - Final No growth in 5 days. 07/22/22 14:35 Nasal Secretion SARS-CoV-2 Antigen (Rapid) - Final SARS-CoV-2 (COVID 19) 07/18/22 05:08 Urine, Clean Catch Streptococcus pneumoniae Antigen (M - Final 07/18/22 05:08 Urine, Clean Catch Legionella Antigen - Final Physical Exam Narrative Physical exam: General: Alert, Oriented x3, Cooperative, on 2 L of oxygen, morbidly obese HEENT: Atraumatic Oral: Moist Mucosa Neck: Supple Lungs: Diminished to auscultation Cardiovascular: HS I+II, regular, no murmurs Abdomen: Bowel Sounds Present, Soft, Non Tender Extremities: Bilateral leg/ foot braces Skin: No rashes, No breakdown Neurological: Grossly intact Psych/Mental Status: Appropriate Assessment & Plan Assessment/Plan (1) Acute respiratory failure with hypoxia: PLAN: Plan 1. Acute COVID-19 infection with hypoxia, incidentally found prior to discharge Unclear how long patient has had COVID, patient appears improved on 2 L of oxygen will continue on dexamethasone IV 2. Acute delirium in a patient with cognitive impairment, no formal diagnosis of dementia Appears resolved. Continue on Seroquel 3. Acute hypoxia secondary to acute bilateral community-acquired pneumonia/acute exacerbation of COPD On 2 L of oxygen. Chest x-ray with perihilar interstitial infiltrates Patient with recent influenza A infection a week ago Blood cultures are negative, urine Legionella and streptococcal antigen are negative Continue on IV ceftriaxone and azithromycin, breathing treatments, prednisone Encourage use of incentive spirometer 4.?Hypertension, controlled, continue amlodipine, ramipril, metoprolol 5. Type 2 diabetes mellitus, blood sugars are better controlled today Increase Lantus dose to 40 units QHS, Humulin 13 units q am, Premeal insulin 3 units TID, blood glucose check with insulin sliding scale 6. Morbid Obesity, BMI: 50.7kg/m?, complicates care. Lifestyle modification recommended. 7. Obstructive sleep apnea, continue on Bipap 8. DVT prophylaxis- Lovenox Disposition: [facility] tomorrow Charges/Coding Visit Charges Inpatient E&M: 61943 Subs Hosp L2
[2022-07-23] MEDS: QUEtiapine 25 MG Tablet 12.5 MG PO (20:59)
[2022-07-23] MEDS: 0.9% Saline Lock 10 ML Syringe IV (21:01)
[2022-07-23] MEDS: Ceftriaxone 1 GM/50 ML BAG IV (21:01)
[2022-07-23] MEDS: Insulin Glargine-YFGN 100 UNIT/ML Pen 40 UNIT SC (21:04)
--- NOTE | 2022-07-23 23:30 | CPS ---
Pt was unable to tolerate BiPAP
[2022-07-24 00:42] LABS: Bedside Glucose 290 mg/dL (74-106)
[2022-07-24 04:16] VITALS: BP 149/70; PULSE 83; RESP 18; TEMP 36.6; O2SAT 98
[2022-07-24] MEDS: Ipratropium/Albuterol Sulfate 3 ML AMPUL.NEB INHALATION (07:03)
[2022-07-24 07:04] VITALS: PULSE 85; RESP 18; O2SAT 96
[2022-07-24 07:42] LABS: Absolute Lymphocyte Count 0.75 X10^3/uL (0.83-4.51); Basophil# 0.01 X10^3/uL; Basophil% 0.1 % (0-1); Hematocrit 40.3 % (37-47); Hemoglobin 13.1 g/dL (12.0-15.0); Lymphocyte # 0.75 X10^3/ul (0.83-4.51); Mean Corp Hgb Conc 32.5 g/dL (32-36); Mean Corpuscular Hgb 30.8 pg (27.0-32.0); Mean Corpuscular Volume 94.6 fL (81-99); Mean Platelet Vol. 11.8 fl (6.2-12.0); Monocyte# 0.56 X10^3/uL; Monocyte% 6.7 % (0-10); NRBC Flagged by Analyzer 0 % (0-5); Neutrophil # 6.99 X10^3/uL (2.7-7.7); Neutrophil % 83.8 % (47-70); Platelet Count 243 K/mm3 (150-450); RBC Distribution Width CV 12.8 % (11.6-14.6); RBC Distribution Width SD 44.2 fl (35.1-43.9); Red Blood Count 4.26 M/mm3 (4.2-5.4); White Blood Count 8.3 K/mm3 (4.4-11.0)
[2022-07-24 08:04] LABS: ALB/GLOB Ratio 0.6 RATIO (0.9-2.4); AST(SGOT) 26 U/L (15-37); Alanine Aminotransfer ALT/SGPT 35 U/L (13-56); Albumin, Serum 2.1 g/dL (3.2-5.0); Alkaline Phosphatase 63 U/L (45-117); Anion Gap 8 (5-15); BUN 20 mg/dL (7-18); BUN/Creat Ratio 23.8 RATIO (10-20); Calcium,Total 8.8 mg/dL (8.5-10.1); Chloride 103 mmol/L (98-107); Creatinine, Serum 0.84 mg/dL (0.55-1.02); EST Glomerular Filtration Rate 70 mL/min (>60); Est Glom Filt Rate - Afr Amer 84 mL/min (>60); Estimated Creatinine Clearance 59.54 ml/min; Globulin 3.8 g/dL (2.2-4.2); Glucose 164 mg/dL (74-106); Potassium 3.6 mmol/L (3.5-5.1); Protein, Total 5.9 g/dL (6.4-8.2); Sodium Level 137 mmol/L (136-145)
[2022-07-24 09:03] VITALS: BP 127/49; PULSE 84; RESP 18; TEMP 36.8; O2SAT 96
[2022-07-24] MEDS: guaiFENesin 1,200 MG Tablet 1200 MG PO (09:07)
[2022-07-24] MEDS: dexAMETHasone 10 MG/ML Vial 6 MG IV (09:07)
[2022-07-24 09:09] VITALS: BP 127/49; PULSE 84
[2022-07-24] MEDS: Ramipril 10 MG Capsule PO (09:09)
[2022-07-24] MEDS: Pantoprazole Sodium 20 MG Tablet PO (09:09)
[2022-07-24] MEDS: Enoxaparin 40 MG/0.4 ML Syringe SC (09:09)
[2022-07-24] MEDS: Metoprolol Tartrate 25 MG Tablet PO (09:09)
[2022-07-24] MEDS: Aspirin E.C. 81 MG Tablet PO (09:10)
[2022-07-24] MEDS: Insulin NPH Human 100 UNITS/ML PEN 13 UNITS SC (09:10)
[2022-07-24] MEDS: 0.9% Saline Lock 10 ML Syringe IV (09:10)
[2022-07-24] MEDS: Insulin Lispro 100 UNIT/ML INSULN.PEN SC (09:13)
--- NOTE | 2022-07-24 09:19 | DCINST_ITS ---
Discharge Instructions Diet Discharge Diet: Low fat / Low cholesterol, 1800 Calorie Control Diet and 2000 mg Sodium Diet Activity Discharge Activity: Return to Normal Activity Follow Up Care Test Results: Test results from this visit will be discussed in further detail at your follow- up appointment, if applicable. Discharge Plan Admission Admit Date/Time: 07/18/22 01:39 Primary Reason for Your Visit: Pneumonia/Acute COPD exacerbation Attending Provider: Mei Garcia Primary Care Provider: Luzma Palencia Consulting Providers: Krystian Sandoval ; Floresita Howe Instructions Additional Instructions / Restrictions: Continue to use incentive spirometer You will be followed up by home health Complete your antibiotics and dexamethasone Follow-up with your primary care doctor within 1 week Completed a 10-day quarantine (last day 08/01/22) Discharge Orders/Prescriptions Prescriptions: New Mucus Relief ER 1,200 mg Tablet Extended Release 12hr 1,200 mg PO BID 7 Days Qty: 0 0RF quetiapine 25 mg Tablet 12.5 mg PO QHS Qty: 0 0RF insulin glargine-yfgn 100 unit/mL (3 mL) Insulin Pen 50 unit subcut QHS 30 Days Qty: 15 0RF cefdinir 300 mg capsule 300 mg PO BID 1 Days Qty: 2 0RF dexamethasone 6 mg tablet 6 mg PO DAILY 7 Days Qty: 7 0RF Continued aspirin 81 mg tablet,delayed release (DR/EC) 81 mg PO DAILY cholecalciferol (vitamin D3) 1,250 mcg (50,000 unit) capsule 1,250 mcg PO QWEEK furosemide 20 mg tablet 20 mg PO DAILY PRN (Reason: water pill) Novolin N NPH U-100 Insulin 100 unit/mL suspension 13 unit subcut QAM insulin lispro 100 unit/mL solution 6 unit subcut TIDCM Protocol: 4. Sliding Scale Insulin High-Med Dosing Condition: 150-199 mg/dl = 2 units Condition: 200-259 mg/dl = 4 units Condition: 260-324 mg/dl = 6 units Condition: 325-374 mg/dl = 8 units Condition: 375-409 mg/dl = 10 units Condition: 410-449 mg/dl = 11 units Condition: Greater than 449 call physician Protocol Text: - Use for Total Daily Dose of Insulin 56-80 units - Patient who are insulin resistant or septic HIGH MEDIUM DOSING ALGORITHM Label Comments: INJECT 3 TO 10 UNITS SUBCUTANEOUSLY BEFORE MEALS DIRECTED budesonide-formoterol 160-4.5 mcg/actuation HFA aerosol inhaler 2 puff inhalation BID omeprazole magnesium [Prilosec OTC] 20 mg tablet,delayed release (DR/EC) 20 mg PO DAILY ramipril 10 MG capsule 10 mg PO BID Label Comments: TAKE 1 CAPSULE BY MOUTH TWICE DAILY zolpidem 5 mg Tablet 2.5 mg PO QHS PRN (Reason: Insomnia) albuterol sulfate [Ventolin HFA] 90 mcg/actuation HFA aerosol inhaler 2 puff INHALATION 4XD PRN (Reason: sob) Qty: 8.5 0RF Rx Instructions: use four times a day for the next seven days, then use every 6 hours as ne eded for shortness of breath amlodipine [Norvasc] 5 mg tablet 5 mg PO DAILY metoprolol tartrate 25 mg tablet 25 mg PO BID Discontinued insulin glargine 100 unit/mL (3 mL) insulin pen 24 unit subcut QHS Referrals / Follow Up: Luzma Palencia MD [Primary Care Provider] - In 1 Week Disposition Disposition (needs filled in before D/C Order can be placed): Home Health Service
[2022-07-24 09:31] VITALS: O2SAT 2; O2SAT 98
[2022-07-24 09:50] LABS: Bedside Glucose 135 mg/dL (74-106)
[2022-07-24 12:40] LABS: Bedside Glucose 48 mg/dL (74-106)
[2022-07-24 12:40] LABS: Bedside Glucose 64 mg/dL (74-106)
== END 2022-07-24 12:22 | disposition home health service (06) | DRG 177 ==
LOC: ED 07-18 01:24 → PCU 07-18 03:06
PROVIDERS: Internal Medicine; Admitting Provider Hospitalist; Emergency Provider Emergency Medicine; PCP Internal Medicine; Visit Provider Internal Medicine
DX: U07.1 COVID-19 (principal); J10.00 Influenza due to other identified influenza virus with unspecified type of pneumonia; F05 Delirium due to known physiological condition; Z68.43 Body mass index [BMI] 50.0-59.9, adult; J44.0 Chronic obstructive pulmonary disease with (acute) lower respiratory infection; J44.1 Chronic obstructive pulmonary disease with (acute) exacerbation; E11.610 Type 2 diabetes mellitus with diabetic neuropathic arthropathy; Z79.4 Long term (current) use of insulin; E66.01 Morbid (severe) obesity due to excess calories; E11.65 Type 2 diabetes mellitus with hyperglycemia; E78.5 Hyperlipidemia, unspecified; G47.33 Obstructive sleep apnea (adult) (pediatric); E87.6 Hypokalemia; I10 Essential (primary) hypertension; G31.84 Mild cognitive impairment of uncertain or unknown etiology; T38.0X5A Adverse effect of glucocorticoids and synthetic analogues, initial encounter; R09.02 Hypoxemia; Z79.52 Long term (current) use of systemic steroids; Z79.82 Long term (current) use of aspirin; Z79.899 Other long term (current) drug therapy; Z87.891 Personal history of nicotine dependence
CPT/HCPCS: 36415; 36600; 71045; 80048; 80053; 82803; 82962; 83605; 85025; 87040; 87426; 87449; 87635; 87641; 93005; 94002; 94003; 94640; 94667; 94668; 97110; 97162; 97166; 97530; 97802; 99252; 99285; J7040; A4216; G0463; J1940; U0003; U0005

== ENCOUNTER 2022-07-31 17:52 | Observation (INO) | payer MEDICARE, SELFPAY ==
[2022-07-31 17:52] VITALS: BP 143/63; PULSE 89; RESP 16; TEMP 36.6; O2SAT 99; BMI 49.1
[2022-07-31 18:58] LABS: Absolute Lymphocyte Count 0.65 X10^3/uL (0.83-4.51); Absolute Neutrophil Count 6.5 X10^3/uL (2.0-7.7); Basophil# 0.01 X10^3/uL; Basophil% 0.1 % (0-1); Hematocrit 42.9 % (37-47); Hemoglobin 13.8 g/dL (12.0-15.0); Lymphocyte # 0.65 X10^3/ul (0.83-4.51); Lymphocyte % 8.7 % (19-41); Mean Corp Hgb Conc 32.2 g/dL (32-36); Mean Corpuscular Hgb 29.4 pg (27.0-32.0); Mean Corpuscular Volume 91.5 fL (81-99); Mean Platelet Vol. 12.3 fl (6.2-12.0); Monocyte# 0.33 X10^3/uL; Monocyte% 4.4 % (0-10); NRBC Flagged by Analyzer 0 % (0-5); Neutrophil # 6.51 X10^3/uL (2.7-7.7); Neutrophil % 86.7 % (47-70); Platelet Count 187 K/mm3 (150-450); RBC Distribution Width CV 12.7 % (11.6-14.6); RBC Distribution Width SD 41.3 fl (35.1-43.9); Red Blood Count 4.69 M/mm3 (4.2-5.4); White Blood Count 7.5 K/mm3 (4.4-11.0)
[2022-07-31 19:14] VITALS: BP 130/56; PULSE 97; RESP 22; O2SAT 94
[2022-07-31 19:15] LABS: Anion Gap 6 (5-15); BUN 17 mg/dL (7-18); BUN/Creat Ratio 17.2 RATIO (10-20); Calcium,Total 8.5 mg/dL (8.5-10.1); Chloride 100 mmol/L (98-107); Creatinine, Serum 0.99 mg/dL (0.55-1.02); EST Glomerular Filtration Rate 58 mL/min (>60); Est Glom Filt Rate - Afr Amer 70 mL/min (>60); Estimated Creatinine Clearance 49.73 ml/min; Glucose 113 mg/dL (74-106); Potassium 3.9 mmol/L (3.5-5.1); Sodium Level 135 mmol/L (136-145)
[2022-07-31 19:41] LABS: Bedside Glucose 121 mg/dL (74-106)
--- NOTE | 2022-07-31 19:52 | EKG12_ITS ---
Test Reason : DYSRYTHMIA Blood Pressure : / mmHG Vent. Rate : 089 BPM Atrial Rate : 089 BPM P-R Int : 118 ms QRS Dur : 074 ms QT Int : 342 ms P-R-T Axes : 049 028 073 degrees QTc Int : 416 ms Sinus rhythm with marked sinus arrhythmia Nonspecific ST and T wave abnormality Abnormal ECG Confirmed by NAYANA JOSE, KARRI ([id number]), editor map MAMIE HENDERSON ([id number]) on 08/02/2022 11:18:02 AM Referred By: JOHN Confirmed By:KARRI KRAUS MD
--- NOTE | 2022-07-31 19:52 | CT_ITS ---
INDICATION: confusion EXAMINATION: CT BRAIN - CT Head or Brain W/O Contrast Injection TECHNIQUE: Multiple axial images were obtained of the head without intravenous contrast. A radiation dose optimization technique was used for this scan. IV Contrast dosage and agent: None. COMPARISON: None. FINDINGS: BRAIN PARENCHYMA: Moderate cortical and central atrophy. Mild chronic microvascular ischemic change. Mild cerebellar atrophy. CSF SPACES: No hydrocephalus. Basal cisterns are patent. CALVARIUM, SKULL BASE, PARANASAL SINUSES AND MASTOID AIR CELLS: Clear. No discrete lytic or blastic abnormalities. ORBITS: Both globes, extraocular muscles, optic nerves and retrobulbar fat appear unremarkable. ASPECTS Score for Acute Strokes: 10 CT/Brain/Head without Contrast IMPRESSION: Moderate cortical and central atrophy. Mild cerebellar atrophy. Mild chronic microvascular ischemic change. Electronically Signed: Jer Jennings MD, MARISA at 20:50 EST ,
--- NOTE | 2022-07-31 19:54 | EX.ED.DYSGE1 ---
HPI History of Present Illness Chief Complaint: General Illness Informant: patient and EMS Narrative Narrative: I did review the EMS report on reason for transporting the patient. History is also obtained through patient. This is somewhat limited as she is occasionally confused. She will be good with some information and just have trouble explaining other issues. I also reviewed a discharge summary recently that mention she has intermittent confusion and history of some cognitive difficulties so this may be her baseline. The overall summary is that the patient has had a couple admissions recently for the flu and then she had community-acquired pneumonia and COVID. It sounds like she has been home for about a week. But over the last day or so she has been getting nauseated and has lost interest in food. She is not actually vomiting. She states she is forcing herself to eat. She is moving her bowels well. No diarrhea or constipation. She is not having abdominal pain. She denies chest pain. She denies trouble breathing but states her oxygen level was low today. She checked it on 1 oxygen saturation monitor and it was 81%. But when I specifically asked if she was short of breath during that time she stated no. She then checked in on a different O2 sat machine and it was normal so this may have been an error of one of her machines. [facility] Medical History Abnormal EKG Asthma Bimalleolar ankle fracture Charcot's joint of left foot Diabetes mellitus, type II Essential hypertension GERD (gastroesophageal reflux disease) History of DVT (deep vein thrombosis) Hyperlipidemia Hypertension THAIS (obstructive sleep apnea) Paroxysmal SVT (supraventricular tachycardia) Premature atrial contractions Premature ventricular contraction Sinus bradycardia Home Medications aspirin 81 mg tablet,delayed release 81 mg PO DAILY heart [facility] [place] 11/24/17 [History Last Taken 01/19/19 16:00] ramipril 10 mg capsule 10 mg PO BID HEART 01/19/19 [History Last Taken 01/19/19 21:00] cholecalciferol (vitamin D3) 1,250 mcg (50,000 unit) capsule 1,250 mcg PO QWEEK SUPPLEMENT 12/03/19 [History Last Taken Unknown] furosemide 20 mg tablet 20 mg PO DAILY PRN water pill 01/22/21 [History Last Taken Unknown] insulin NPH isoph U-100 human 100 unit/mL subcutaneous suspension (Novolin N NPH U-100 Insulin isophane) 13 unit subcut QAM DIABETES 01/22/21 [History Last Taken Unknown] budesonide-formoterol HFA 160 mcg-4.5 mcg/actuation aerosol inhaler 2 puff inhalation BID ASTHMA 12/21/21 [History Last Taken Unknown] zolpidem 5 mg tablet 2.5 mg PO QHS PRN Insomnia 02/11/22 [History Last Taken Unknown] insulin lispro 100 unit/mL subcutaneous solution 6 unit subcut TIDCM dm 06/22/22 [History Last Taken Unknown] omeprazole magnesium 20 mg tablet,delayed release (Prilosec OTC) 20 mg PO DAILY GERD 06/22/22 [History Last Taken Unknown] albuterol sulfate 90 mcg/actuation aerosol inhaler (Ventolin HFA) 2 puff inhalation 4XD PRN sob #8.5 grams 07/14/22 [Rx Last Taken Unknown] amlodipine 5 mg tablet (Norvasc) 5 mg PO DAILY BLOOD PRESSURE 07/17/22 [History Last Taken Unknown] metoprolol tartrate 25 mg tablet 25 mg PO BID BLOOD PRESSURE 07/17/22 [History Last Taken Unknown] cefdinir 300 mg capsule 300 mg PO BID 1 day #2 caps 07/24/22 [Rx Last Taken Unknown] insulin glargine-yfgn 100 unit/mL (3 mL) subcutaneous pen 30 unit subcut QHS 07/31/22 [History Last Taken Unknown] Allergy/AdvReac Type Severity Reaction Status Date / Time albuterol [From Ventolin HFA] Allergy Intermediate nausea, Verified 07/31/22 17:52 vomiting pravastatin Allergy Unknown unknown Verified 07/31/22 17:52 rosuvastatin [From Crestor] Allergy Unknown myalgias Verified 07/31/22 17:52 simvastatin Allergy Unknown unknown Verified 07/31/22 17:52 escitalopram Allergy Other Verified 07/31/22 17:52 hydrochlorothiazide Allergy Other Verified 07/31/22 17:52 Uejhhmh-JMJ-PaV Reductase AdvReac Severe myalgias Verified 07/31/22 17:52 Inhibitor [Dbpokkg-Vyo-Bky Reductase Inhibitor] codeine AdvReac Nausea Verified 07/31/22 17:52 naproxen [From Naprosyn] AdvReac Nausea Verified 07/31/22 17:52 Family History Mother Aortic stenosis Presence of permanent cardiac pacemaker Surgical History History of cholecystectomy History of tonsillectomy Social History household members: spouse Smoking Status: Former smoker alcohol intake: never substance use type: does not use ROS ROS ED Constitutional Constitutional ED: Denies chills or fever(s) Eyes Eyes: Denies change in vision ENT ENT ED: Denies rhinorrhea or sore throat Cardiovascular Cardiovascular: Denies chest pain, palpitations or racing heartbeat Respiratory/Chest Respiratory/Chest: Reports cough; Denies dyspnea or sputum Gastrointestinal Gastrointestinal: Reports nausea; Denies abdominal pain, constipation, diarrhea or vomiting Genitourinary Genitourinary ED: Denies hematuria Musculoskeletal Musculoskeletal: Denies myalgias Integumentary Denies rash Neurologic Neurologic: Denies headache(s) Psychiatric Psychiatric: Reports anxiety Endocrine Endocrinology: Denies polydipsia or polyuria Hematologic/Lymphatic Hematologic/Lymphatic: Denies easy bleeding or easy bruising Allergic/Immunologic Allergic/Immunologic ED: Denies urticaria EXAM Physical Exam Narrative Exam Narrative: Patient awake alert and in no acute distress. Her breathing looks comfortable. She is on 4 L and has a O2 saturation anywhere between 94 and 99% on the monitor showing no hypoxia. HEENT: No sign of head trauma. Mucous membranes might be slightly dry. No JVD noted in the neck. No stridor. Lungs are overall clear. She does not take the deep as the breaths but I am not hearing significant changes. The first breath or so had mild wheezing but it seemed to improve. I will give her a breathing treatment to see if this helps. She does have a history of asthma Heart is regular I do not hear murmur. Abdomen is obese but soft and completely nontender. There is no CVA tenderness. Extremities are not small. She has splints on both lower legs but I do not notice any significant pitting edema and she states her legs are normal for her. Skin is not pale or diaphoretic. Patient is alert oriented x3. She is occasionally a bad informant for some details and then other times she is quite good on specifics of admission and follow-up. I am not getting any focal deficit. Const Vital Signs: 07/31/22 17:52 07/31/22 19:14 07/31/22 19:14 Temperature 97.8 F Temperature Source Temporal Pulse Rate 89 97 Respiratory Rate 16 22 H Respiratory Effort Short of Breath Respiratory Pattern Tachypnea Blood Pressure 143/63 H 130/56 H Blood Pressure Mean 89 80 Pulse Ox 99 94 Oxygen Delivery Method Room Air Nasal Cannula Oxygen Flow Rate (L/min) 4 07/31/22 20:10 07/31/22 21:00 07/31/22 22:25 Temperature 98.6 F Temperature Source Temporal Pulse Rate 94 99 82 Respiratory Rate 16 23 H 20 H Respiratory Effort Respiratory Pattern Normal Blood Pressure 133/83 H 142/50 H Blood Pressure Mean 99 80 Pulse Ox 98 91 Oxygen Delivery Method Nasal Cannula Nasal Cannula Oxygen Flow Rate (L/min) 4 2 MDM MDM MDM Narrative Medical decision making narrative: Got further history from patient's son and who came in. Patient has been home. She was initially doing well but the last couple days she has been doing worse. Today she got much weaker. She had been walking with a walker but today she is too weak to do that. She is not eating and drinking well. She has had nausea but no actual vomiting. She has had some soft stools but no watery diarrhea. Urine was a little darker but did not burn. They also state that she did have some hypoxia earlier with sats down at the upper 80s. We have not been able to reproduce that here though. has concerns of being able to care for her at home. Because she is getting weaker and weaker. Both he and the patient would like to see if they can get into rehab because she just does not feel she has enough energy after 2 hospital admissions. She feels like she is starting to get worse again. My interpretation of the patient's single view chest x-ray does show bilateral infiltrates versus atelectasis. This is worsening from prior. CBC shows normal white count overall normal. Electrolytes are overall unremarkable. Lactic acid is normal. Bilirubin is mildly elevated but the rest of liver function test are normal. Urine shows 5-10 white cells but negative nitrites. This is not convincing evidence for UTI. CT scan of the head also read by radiology showed no acute process. My independent interpretation shows no mass or bleeding. This patient has had recent admissions. She has COVID test which is still positive. She is not eating and drinking well. She is now too weak to get up and walk. She lives at home with her who is much smaller than her. He states he cannot safely care for her now that she is not mobile. They both agree that she needs to come in the hospital for safety and care. She is amenable to rehab facility placement. I discussed the case with the hospitalist including the above results and the patient will be brought into the hospital. Lab Data Attestation: I reviewed the patient's lab results. Labs: Laboratory Results - last 24 hr 07/31/22 07/31/22 07/31/22 18:33 18:33 19:23 WBC 7.5 RBC 4.69 Hgb 13.8 Hct 42.9 MCV 91.5 MCH 29.4 MCHC 32.2 RDW Std Deviation 41.3 RDW Coeff of Madalyn 12.7 Plt Count 187 MPV 12.3 H Immature Gran % (Auto) 0.100 Neut % (Auto) 86.7 H Lymph % (Auto) 8.7 L [place] % (Auto) 4.4 Eos % (Auto) 0.0 Baso % (Auto) 0.1 Absolute Neuts (auto) 6.5 Absolute Lymphs (auto) 0.65 L Nucleated RBC % 0 Sodium 135 L Potassium 3.9 Chloride 100 Carbon Dioxide 29.0 Anion Gap 6 BUN 17 Creatinine 0.99 Estim Creat Clear Calc 49.73 Est GFR (MDRD) Af Amer 70 Est GFR (MDRD) Non-Af 58 L BUN/Creatinine Ratio 17.2 Glucose 113 H Lactic Acid Calcium 8.5 Total Bilirubin 1.30 H AST 24 ALT 26 Alkaline Phosphatase 71 Total Protein 7.0 Albumin 2.8 L Globulin 4.2 Albumin/Globulin Ratio 0.7 L Urine Color Urine Clarity Urine pH Ur Specific [place] Urine Protein Urine Glucose (UA) Urine Ketones Urine Occult Blood Urine Nitrite Urine Bilirubin Urine Urobilinogen Ur Leukocyte Esterase Urine RBC Urine WBC Ur Squamous Epith Cells Amorphous Sediment Urine Bacteria Urine Mucus POC Glucose 121 H 07/31/22 07/31/22 20:11 20:29 WBC RBC Hgb Hct MCV MCH MCHC RDW Std Deviation RDW Coeff of Madalyn Plt Count MPV Immature Gran % (Auto) Neut % (Auto) Lymph % (Auto) [place] % (Auto) Eos % (Auto) Baso % (Auto) Absolute Neuts (auto) Absolute Lymphs (auto) Nucleated RBC % Sodium Potassium Chloride Carbon Dioxide Anion Gap BUN Creatinine Estim Creat Clear Calc Est GFR (MDRD) Af Amer Est GFR (MDRD) Non-Af BUN/Creatinine Ratio Glucose Lactic Acid 1.5 Calcium Total Bilirubin AST ALT Alkaline Phosphatase Total Protein Albumin Globulin Albumin/Globulin Ratio Urine Color Yellow Urine Clarity Sl. Cloudy Urine pH 6.0 Ur Specific [place] 1.015 Urine Protein 15 H Urine Glucose (UA) Normal Urine Ketones 15 H Urine Occult Blood Negative Urine Nitrite Negative Urine Bilirubin 1 H Urine Urobilinogen 4 H Ur Leukocyte Esterase 100 H Urine RBC 0 SEEN Urine WBC 5-10 SEEN Ur Squamous Epith Cells 0-5 SEEN Amorphous Sediment 1+ URATE Urine Bacteria 0 SEEN Urine Mucus 0 SEEN POC Glucose Radiography Diagnostic Testing: Clinical Impression(s) from Imaging Studies Brain CT 07/31/22 19:52 IMPRESSION: Moderate cortical and central atrophy. Mild cerebellar atrophy. Mild chronic microvascular ischemic change. Electronically Signed: Jer Jennings MD, MARISA at 20:50 EST , ADDENDUM: 07/31/222104 IMPRESSION: undefined Chest X-Ray 07/31/22 20:34 IMPRESSION: Right middle lobe, lingula and left lower lobe infiltrates. Small left pleural effusion. Electronically Signed: Jer Jennings MD, MARISA at 20:49 EST , EKG Initial EKG: Comments: Plan depend interpretation of the patient's EKG done for generalized weakness shows sinus rhythm with PACs. No ventricular ectopy. No acute ST elevation. There are some diffuse nonspecific ST and T wave change. ME interval, QRS duration and QTc are normal. Discharge Plan Triage Chief Complaint: General Illness ED Provider: Jesus Kessler Dx/Rx/DC Orders Prescriptions: No Action aspirin 81 mg tablet,delayed release (DR/EC) 81 mg PO DAILY cholecalciferol (vitamin D3) 1,250 mcg (50,000 unit) capsule 1,250 mcg PO QWEEK furosemide 20 mg tablet 20 mg PO DAILY PRN (Reason: water pill) Novolin N NPH U-100 Insulin 100 unit/mL suspension 13 unit subcut QAM insulin lispro 100 unit/mL solution 6 unit subcut TIDCM Protocol: 4. Sliding Scale Insulin High-Med Dosing Condition: 150-199 mg/dl = 2 units Condition: 200-259 mg/dl = 4 units Condition: 260-324 mg/dl = 6 units Condition: 325-374 mg/dl = 8 units Condition: 375-409 mg/dl = 10 units Condition: 410-449 mg/dl = 11 units Condition: Greater than 449 call physician Protocol Text: - Use for Total Daily Dose of Insulin 56-80 units - Patient who are insulin resistant or septic HIGH MEDIUM DOSING ALGORITHM Label Comments: INJECT 3 TO 10 UNITS SUBCUTANEOUSLY BEFORE MEALS DIRECTED budesonide-formoterol 160-4.5 mcg/actuation HFA aerosol inhaler 2 puff inhalation BID omeprazole magnesium [Prilosec OTC] 20 mg tablet,delayed release (DR/EC) 20 mg PO DAILY ramipril 10 MG capsule 10 mg PO BID Label Comments: TAKE 1 CAPSULE BY MOUTH TWICE DAILY zolpidem 5 mg Tablet 2.5 mg PO QHS PRN (Reason: Insomnia) albuterol sulfate [Ventolin HFA] 90 mcg/actuation HFA aerosol inhaler 2 puff INHALATION 4XD PRN (Reason: sob) Qty: 8.5 0RF Rx Instructions: use four times a day for the next seven days, then use every 6 hours as needed for shortness of breath amlodipine [Norvasc] 5 mg tablet 5 mg PO DAILY metoprolol tartrate 25 mg tablet 25 mg PO BID cefdinir 300 mg capsule 300 mg PO BID 1 Days Qty: 2 0RF insulin glargine-yfgn 100 unit/mL (3 mL) insulin pen 30 unit subcut QHS Primary Care Provider: Luzma Palencia Referrals: Luzma Palencia MD [Primary Care Provider] - Disposition Disposition: Acute Care Hospital [facility]
[2022-07-31] MEDS: Ipratropium 0.5 MG/2.5 ML SOLUTION INHALATION (20:08)
[2022-07-31 20:10] VITALS: PULSE 94; RESP 16
--- NOTE | 2022-07-31 20:34 | RAD_ITS ---
INDICATION: Pneumonia EXAMINATION/TECHNIQUE: X-RAY - XR Chest 1 View COMPARISON: 07/17/2022 FINDINGS: LINES/DEVICES: None. LUNGS: Moderate right middle lobe and moderate lingular and left lower lobe infiltrates new. Small left pleural effusion. MEDIASTINUM AND CARDIOVASCULAR STRUCTURES: Cardiac silhouette not enlarged. Central airways and mediastinal contour are unremarkable. BONES AND SOFT TISSUES: Unremarkable. RAD/Chest 1 View (Portable) IMPRESSION: Right middle lobe, lingula and left lower lobe infiltrates. Small left pleural effusion. Electronically Signed: Jer Jennings MD, MARISA at 20:49 EST ,
[2022-07-31 20:35] LABS: Lactic Acid 1.5 mmol/L (0.4-1.9)
[2022-07-31 20:36] LABS: Bacteria 0 SEEN /hpf (None Seen); Mucous, Urine 0 SEEN /hpf (<or=2+); Red Blood Cells-Urine 0 SEEN /hpf (0-5)
[2022-07-31 20:41] LABS: ALB/GLOB Ratio 0.7 RATIO (0.9-2.4); AST(SGOT) 24 U/L (15-37); Alanine Aminotransfer ALT/SGPT 26 U/L (13-56); Albumin, Serum 2.8 g/dL (3.2-5.0); Alkaline Phosphatase 71 U/L (45-117); Globulin 4.2 g/dL (2.2-4.2)
[2022-07-31 20:41] LABS: Color, Urine Yellow (Yellow); Glucose, Dipstick Normal (Normal); Ketone-Dipstick 15 mg/dl (Negative); Leukocyte Esterase-Dipstick 100 /ul (Negative); Nitrite-Dipstick Negative (Negative); Occult Blood-Urine Negative /ul (Negative); Protein-Dipstick 15 mg/dl (Negative); Specific Gravity, Urine 1.015 (1.002-1.030); Urine Clarity Sl. Cloudy (Clear); Urine Urobilinogen 4 mg/dl (Normal)
[2022-07-31 20:49] LABS: Urine Bilirubin Dipstick 1 mg/dL (Negative)
[2022-07-31 20:51] LABS: Amorphous Sediment 1+ URATE; Squamous Epithelial Cells - UA 0-5 SEEN /hpf (5-10); White Blood Cells 5-10 SEEN /hpf (0-5)
[2022-07-31 21:00] VITALS: BP 133/83; PULSE 99; RESP 23; O2SAT 98
--- NOTE | 2022-07-31 22:09 | HP.PCM.HOS_ITS ---
HPI - General General Date of Admission: 07/31/22 Date of Service: 07/31/22 Chief Complaint: general weakness HPI Narrative ATTILA KIDD, is a 77 F with a PMH as outlined who presents via the ED on 07/31/2022 with a complaint of genealised weakness, nausea and decreased appetite. She has recently been admitted twice over the last month for influenza and covid as well as community acquired pneumonia for which she completed a course of antibiotics. She has been home and been declining. She has had some nausea, and not eating or drinking well. She denies any fever, chills, diarrhea, constipation or vomiting. She denies any abdominal pain. REview of systems is otherwise negative. There was some question about hypoxia; she says she checked her oxygen levels with one machine and it was low but when she checked it with another machine, she was fine. She denied any shortness of breath. Family also noted that she was having episodic confusion. Review of systems is otherwise negative. Vitals were BP of 133/83, AL of 99, RR of 23 and she was saturating at 98% on 4L of oxygen. CBC was unremarkable, and CMP was only significant for total bilirubin of 1.3 but was otherwise WNL. Urinalysis showed leucocyte esterase of 100 and urine wbc of 5-10. COVID test was positive. She originally tested positive for covid on 07/23/2022. CXR showed right middle lobe, lingular nad left lower lobe infiltrates and small left pleural effusion. CT of the brain showed moderate cortical and central atrophy with mild cerebellar atrophy but no acute intracranial pathology. She has been admitted to managed for debility due to failure to thrive and COVID-19 infection. [facility] [place] Medical History Abnormal EKG Asthma Bimalleolar ankle fracture Charcot's joint of left foot Diabetes mellitus, type II Essential hypertension GERD (gastroesophageal reflux disease) History of DVT (deep vein thrombosis) Hyperlipidemia Hypertension THAIS (obstructive sleep apnea) Paroxysmal SVT (supraventricular tachycardia) Premature atrial contractions Premature ventricular contraction Sinus bradycardia Home Medications aspirin 81 mg tablet,delayed release 81 mg PO DAILY [facility] 11/24/17 [History Last Taken 01/19/19 16:00] ramipril 10 mg capsule 10 mg PO BID HEART 01/19/19 [History Last Taken 01/19/19 21:00] cholecalciferol (vitamin D3) 1,250 mcg (50,000 unit) capsule 1,250 mcg PO QWEEK SUPPLEMENT 12/03/19 [History Last Taken Unknown] furosemide 20 mg tablet 20 mg PO DAILY PRN water pill 01/22/21 [History Last Taken Unknown] insulin NPH isoph U-100 human 100 unit/mL subcutaneous suspension (Novolin N NPH U-100 Insulin isophane) 13 unit subcut QAM DIABETES 01/22/21 [History Last Taken Unknown] budesonide-formoterol HFA 160 mcg-4.5 mcg/actuation aerosol inhaler 2 puff inhalation BID ASTHMA 12/21/21 [History Last Taken Unknown] zolpidem 5 mg tablet 2.5 mg PO QHS PRN Insomnia 02/11/22 [History Last Taken Unknown] insulin lispro 100 unit/mL subcutaneous solution 6 unit subcut TIDCM dm 06/22/22 [History Last Taken Unknown] omeprazole magnesium 20 mg tablet,delayed release (Prilosec OTC) 20 mg PO DAILY GERD 06/22/22 [History Last Taken Unknown] albuterol sulfate 90 mcg/actuation aerosol inhaler (Ventolin HFA) 2 puff inhalation 4XD PRN sob #8.5 grams 07/14/22 [Rx Last Taken Unknown] amlodipine 5 mg tablet (Norvasc) 5 mg PO DAILY BLOOD PRESSURE 07/17/22 [History Last Taken Unknown] metoprolol tartrate 25 mg tablet 25 mg PO BID BLOOD PRESSURE 07/17/22 [History Last Taken Unknown] cefdinir 300 mg capsule 300 mg PO BID 1 day #2 caps 07/24/22 [Rx Last Taken Unknown] insulin glargine-yfgn 100 unit/mL (3 mL) subcutaneous pen 30 unit subcut QHS 07/31/22 [History Last Taken Unknown] Allergy/AdvReac Type Severity Reaction Status Date / Time pravastatin Allergy Unknown unknown Verified 07/31/22 23:52 rosuvastatin [From Crestor] Allergy Unknown myalgias Verified 07/31/22 23:52 simvastatin Allergy Unknown unknown Verified 07/31/22 23:52 escitalopram Allergy Other Verified 07/31/22 23:52 hydrochlorothiazide Allergy Other Verified 07/31/22 23:52 Pbhtxkl-WNV-JjL Reductase AdvReac Severe myalgias Verified 07/31/22 23:52 Inhibitor [Newjwmo-Lqr-Nds Reductase Inhibitor] codeine AdvReac Nausea Verified 07/31/22 23:52 naproxen [From Naprosyn] AdvReac Nausea Verified 07/31/22 23:52 Family History Mother Aortic stenosis Presence of permanent cardiac pacemaker Surgical History History of cholecystectomy History of tonsillectomy Social History household members: spouse Smoking Status: Former smoker alcohol intake: never substance use type: does not use ROS Constitutional Constitutional: Reports anorexia, fatigue, malaise and weakness; Denies change in weight, chills or fever(s) Eyes Eyes: Denies change in vision ENT HEENT: Denies dysphagia, headache(s), nasal congestion or sore throat Cardiovascular Cardiovascular: Reports dyspnea on exertion; Denies chest pain, edema, lightheadedness, orthopnea, palpitations, paroxysmal nocturnal dyspnea, rapid heart rate or syncope Respiratory/Chest Respiratory/Chest: Reports cough, dyspnea, shortness of breath at rest and shortness of breath with exertion; Denies excessive phlegm production, hemoptysis, productive cough or wheezing Gastrointestinal Gastrointestinal: Denies abdominal pain, constipation, diarrhea, nausea or vomiting Genitourinary Genitourinary: Denies burning urination or dysuria Musculoskeletal Musculoskeletal: Denies arthralgias Neurologic Neurologic: Denies confusion, dizziness, headache(s), numbness, seizure-like activity or seizures Psychiatric Psychiatric: Denies anxiety or depression Vital Signs Vital Signs Vital Signs: 07/31/22 17:52 07/31/22 19:14 07/31/22 19:14 Temperature 97.8 F Temperature Source Temporal Pulse Rate 89 97 Respiratory Rate 16 22 H Respiratory Effort Short of Breath Respiratory Pattern Tachypnea Blood Pressure 143/63 H 130/56 H Blood Pressure Mean 89 80 Pulse Ox 99 94 Oxygen Delivery Method Room Air Nasal Cannula Oxygen Flow Rate (L/min) 4 07/31/22 20:10 07/31/22 21:00 Temperature Temperature Source Pulse Rate 94 99 Respiratory Rate 16 23 H Respiratory Effort Respiratory Pattern Normal Blood Pressure 133/83 H Blood Pressure Mean 99 Pulse Ox 98 Oxygen Delivery Method Nasal Cannula Oxygen Flow Rate (L/min) 4 Weight Weight: 333 lb Body Mass Index (BMI) 49.1 Physical Exam Const alert, oriented x3 and no apparent distress Constitutional Narrative: super morbid obesity General Appearance: cooperative Orientation / Consciousness: lethargic HEENT normocephalic, head/scalp atraumatic and hearing grossly normal bilaterally HEENT Narrative: dry oral mucosal membranes Eyes PERRL, EOMs intact bilaterally and conjunctivae normal Neck no lymphadenopathy, supple and no JVD Resp Resp Narrative: diminished breath sounds bilaterally, bilatearl crackles, more audible in right mid and lower lung ramon, no wheezing. On 2L of oxygen by nasal canula Cardio regular rate, regular rhythm, S1 normal heart sound, S2 normal heart sound and no murmurs GI normal to inspection, nondistended, normoactive bowel sounds, soft to palpation, non-tender and non-distended Extremity normal to inspection, full ROM and no clubbing, cyanosis or edema Neuro oriented x3, CN's II-XII intact bilaterally, moves all extremities and no focal motor deficits Sensorium / Orientation: awake and alert Motor Exam: strength 5/5 throughout Psych affect normal Results Lab / Micro Data Result Diagrams: 07/31/22 18:33 07/31/22 18:33 Labs: Laboratory Results - last 24 hr 07/31/22 18:33: WBC 7.5, RBC 4.69, Hgb 13.8, Hct 42.9, MCV 91.5, MCH 29.4, MCHC 32.2, RDW Std Deviation 41.3, RDW Coeff of Madalyn 12.7, Plt Count 187, MPV 12.3 H, Immature Gran % (Auto) 0.100, Neut % (Auto) 86.7 H, Lymph % (Auto) 8.7 L, [place] % (Auto) 4.4, Eos % (Auto) 0.0, Baso % (Auto) 0.1, Absolute Neuts (auto) 6.5, Abs olute Lymphs (auto) 0.65 L, Nucleated RBC % 0 07/31/22 18:33: Sodium 135 L, Potassium 3.9, Chloride 100, Carbon Dioxide 29.0, Anion Gap 6, BUN 17, Creatinine 0.99, Estim Creat Clear Calc 49.73, Est GFR (MDRD) Af Amer 70, Est GFR (MDRD) Non-Af 58 L, BUN/Creatinine Ratio 17.2, Glucose 113 H, Calcium 8.5, Total Bilirubin 1.30 H, AST 24, ALT 26, Alkaline Phosphatase 71, Total Protein 7.0, Albumin 2.8 L, Globulin 4.2, Albumin/Globulin Ratio 0.7 L 07/31/22 19:23: POC Glucose 121 H 07/31/22 20:11: Lactic Acid 1.5 07/31/22 20:29: Urine Color Yellow, Urine Clarity Sl. Cloudy, Urine pH 6.0, Ur Specific [place] 1.015, Urine Protein 15 H, Urine Glucose (UA) Normal, Urine Ketones 15 H, Urine Occult Blood Negative, Urine Nitrite Negative, Urine Bilirubin 1 H, Urine Urobilinogen 4 H, Ur Leukocyte Esterase 100 H, Urine RBC 0 SEEN, Urine WBC 5-10 SEEN, Ur Squamous Epith Cells 0-5 SEEN, Amorphous Sediment 1+ URATE, Urine Bacteria 0 SEEN, Urine Mucus 0 SEEN Micro: Microbiology 07/31/22 20:10 Nasal Secretion SARS-CoV-2 & FLU Antigen (Rapid) - Final SARS-CoV-2 (COVID 19) Radiology Impression Brain CT 07/31/22 19:52 IMPRESSION: Moderate cortical and central atrophy. Mild cerebellar atrophy. Mild chronic microvascular ischemic change. Electronically Signed: Jer Jennings MD, MARISA at 20:50 EST Reading Location ID and State: [facility] / [place] Tel , Service support , ADDENDUM: 07/31/222104 IMPRESSION: undefined Chest X-Ray 07/31/22 20:34 IMPRESSION: Right middle lobe, lingula and left lower lobe infiltrates. Small left pleural effusion. Electronically Signed: Jer Jennings MD, JD at 20:49 EST , Assessment & Plan Assessment/Plan (1) Bilateral pneumonia: (2) Acute hypokalemia: (3) Hypoxia: PLAN: Plan #Debility due to covid pneumonia and superimposed bacterial pneumonia * Admit to [facility]. * Patient recently tested positive for COVID on 07/23/2021. She was discharged home just a week ago on oral cefdinir for superimposed pneumonia. She had refused SNF placement at that time because she did not like the facilities. * She has completed a course of antibiotics but says she has still felt weak and feels short of breath today. She was hypoxic based on 1 machine but says she checked with another machine and she was fine. * She is still coughing though and she was only saturating at around 90% on 2 L of oxygen which is what she was discharged home on * Chest x-ray showed right middle lobe, lingula and left lower lobe infiltrates with small left pleural effusion. * In light of her having completed a course of antibiotics and still having these infiltrates, I think it is reasonable to get a chest CT. I worry that this patient is still only around 90% on 2 L of oxygen despite being treated with oral antibiotics. * She is now vaccinated against COVID and so is at a higher rate of complications from COVID. * Will start on IV Zosyn. * Get sputum culture and urine for strep and Legionella. * Titrate oxygen to maintain saturation above 90%. * #Hypoxia in the setting of COVID with superimposed bacterial pneumonia: As above. Titrate oxygen to maintain saturation above 90%. #Hypertension: On amlodipine, metoprolol and ramipril #Type 2 diabetes mellitus: On Lantus 30 units nightly. Insulin sliding scale. Accu-Cheks ACH S. #DVT prophylaxis: Lovenox CODE STATUS: Full code * Patient counseled extensively about different types of CODE STATUS including full code, DNR CCA and DNR CCA. Patient elects to be full code. * Total megz-wg-hinn time 17 minutes. Charges/Coding Visit Charges Inpatient E&M: 46727 Init Hosp L3 Procedures Hospitalists Procedures: 77983 Advncd Care Plan 30 Min
[2022-07-31 22:25] VITALS: BP 142/50; PULSE 82; RESP 20; TEMP 37; O2SAT 91
[2022-07-31 23:29] VITALS: BMI 47.9
[2022-07-31 23:37] VITALS: BP 116/49; PULSE 84; RESP 18; TEMP 36.5; O2SAT 94
[2022-07-31] MEDS: 0.9% Normal Saline 1,000 ML 125 ML IV (23:58)
[2022-08-01] VITALS (10 sets, daily range): BP systolic 112–118; BP diastolic 48–58; PULSE 76–90; RESP 16–20; TEMP 36.3–36.6; O2SAT 90–94
--- NOTE | 2022-08-01 | CT_ITS ---
EXAM: CT CHEST WITH INTRAVENOUS CONTRAST CLINICAL INDICATION: shortness of breath, covid TECHNIQUE: Helically acquired images were obtained of the chest with intravenous contrast. CTDIvol = ( 28.31 ) mGy, DLP = ( 796.44 ) mGycm This CT exam was performed using one or more of the following dose reduction techniques: automated exposure control, adjustment of the mA and/or kV according to patient size, and/or use of iterative reconstruction technique. This report was created using [employer] report generation technology. CONTRAST: IV 100mL Isovue-370 COMPARISON: 2018 CT chest. FINDINGS: INFRAHYOID NECK: Trachea and esophagus are unremarkable. LUNGS AND PLEURAL SPACES: Bilateral patchy multilobar pneumonia, worse at the posterior lower lobes where there is also mild subsegmental atelectasis. No mass. No pleural effusion or thickening. HEART: Calcific coronary arteriolosclerosis. No cardiomegaly or pericardial effusion. MEDIASTINUM: Reactive mediastinal enlarged lymph nodes are most prominent in the subcarinal region. Small hiatal hernia suggested. Esophagus is unremarkable. THYROID: Indeterminate hypodense nodule measuring up to 1.1 cm involving the left thyroid lobe. BONES/JOINTS: Diffuse osteopenia. Degenerative changes of the sternoclavicular joints and shoulder joints bilaterally as well as the spine. No suspicious lytic or sclerotic lesions of bone. VASCULATURE: No central PE. The more peripheral pulmonary arteries are not as well evaluated/opacified. No obvious central pulmonary embolism although this study was not performed with the pulmonary embolism protocol. No aortic aneurysm or dissection. LIVER: Ill-defined small hypervascular enhancing focus involving the lateral/peripheral aspect of the right hepatic lobe measures approximately 1.7 x 1.2 cm; this can be further evaluated with liver MRI or CT. CT/Chest WITH Contrast IMPRESSION: 1. Bilateral multilobar pneumonia with reactive mediastinal/hilar adenopathy. 2. No central PE. Electronically Signed: Jesus Phillips MD at 2:27 EST ,
[2022-08-01] MEDS: 0.9% Saline Lock 10 ML Syringe IV (00:14)
[2022-08-01 00:41] LABS: Bedside Glucose 108 mg/dL (74-106)
[2022-08-01] MEDS: Insulin Lispro 100 UNIT/ML INSULN.PEN SC ×4 (06:36→22:33)
[2022-08-01 07:00] LABS: Bedside Glucose 170 mg/dL (74-106)
[2022-08-01 07:32] LABS: Absolute Lymphocyte Count 0.63 X10^3/uL (0.83-4.51); Absolute Neutrophil Count 3.3 X10^3/uL (2.0-7.7); Basophil# 0.01 X10^3/uL; Basophil% 0.2 % (0-1); Hematocrit 37.5 % (37-47); Hemoglobin 11.7 g/dL (12.0-15.0); Lymphocyte # 0.63 X10^3/ul (0.83-4.51); Lymphocyte % 15.1 % (19-41); Mean Corp Hgb Conc 31.2 g/dL (32-36); Mean Corpuscular Volume 93.1 fL (81-99); Mean Platelet Vol. 12.4 fl (6.2-12.0); Monocyte# 0.28 X10^3/uL; Monocyte% 6.7 % (0-10); NRBC Flagged by Analyzer 0 % (0-5); Neutrophil # 3.25 X10^3/uL (2.7-7.7); Neutrophil % 77.8 % (47-70); Platelet Count 147 K/mm3 (150-450); RBC Distribution Width CV 12.9 % (11.6-14.6); RBC Distribution Width SD 44.3 fl (35.1-43.9); Red Blood Count 4.03 M/mm3 (4.2-5.4); White Blood Count 4.2 K/mm3 (4.4-11.0)
[2022-08-01] MEDS: Budesonide Respules 0.5 MG/2 ML AMPUL.NEB. INHALATION ×2 (07:38→19:36)
[2022-08-01] MEDS: Albuterol 2.5 MG/3 ML VIAL.NEB. INHALATION ×3 (07:38→19:36)
--- NOTE | 2022-08-01 07:45 | PN.HOSP_ITS ---
Subjective Subjective Follow-up hypoxia Patient is a 77-year-old lady recently discharged from the hospital following admission for influenza A virus infection presented with progressive generalized weakness. CT of the chest obtained did show Bilateral multilobar pneumonia with reactive mediastinal/hilar adenopathy.. Neck COVID 19 acid came back positive admitted to monitored bed for further management Objective Data Objective Data Vital Signs: Vital Signs Temp Pulse Resp BP Pulse Ox O2 Del Method O2 Flow Rate 97.9 F 90 18 112/48 L 92 Nasal Cannula 4 08/01/22 04:47 08/01/22 04:47 08/01/22 04:47 08/01/22 04:47 08/01/22 04:47 08/01/22 04:47 08/01/22 04:47 Oxygen Flow Rate (L/min) 4 Oxygen Delivery Method Nasal Cannula Weight: 149.5 kg Body Mass Index (BMI) 47.9 Lab / Micro Data Result Diagrams: 08/01/22 06:28 08/01/22 06:28 Labs: Laboratory Results - last 24 hr 07/31/22 18:33: WBC 7.5, RBC 4.69, Hgb 13.8, Hct 42.9, MCV 91.5, MCH 29.4, MCHC 32.2, RDW Std Deviation 41.3, RDW Coeff of Madalyn 12.7, Plt Count 187, MPV 12.3 H, Immature Gran % (Auto) 0.100, Neut % (Auto) 86.7 H, Lymph % (Auto) 8.7 L, Stephens % (Auto) 4.4, Eos % (Auto) 0.0, Baso % (Auto) 0.1, Absolute Neuts (auto) 6.5, Absolute Lymphs (auto) 0.65 L, Nucleated RBC % 0 07/31/22 18:33: Sodium 135 L, Potassium 3.9, Chloride 100, Carbon Dioxide 29.0, Anion Gap 6, BUN 17, Creatinine 0.99, Estim Creat Clear Calc 49.73, Est GFR (MDRD) Af Amer 70, Est GFR (MDRD) Non-Af 58 L, BUN/Creatinine Ratio 17.2, Glucose 113 H, Calcium 8.5, Total Bilirubin 1.30 H, AST 24, ALT 26, Alkaline Phosphatase 71, Total Protein 7.0, Albumin 2.8 L, Globulin 4.2, Albumin/Globulin Ratio 0.7 L 07/31/22 19:23: POC Glucose 121 H 07/31/22 20:11: Lactic Acid 1.5 07/31/22 20:29: Urine Color Yellow, Urine Clarity Sl. Cloudy, Urine pH 6.0, Ur Specific [place] 1.015, Urine Protein 15 H, Urine Glucose (UA) Normal, Urine Ketones 15 H, Urine Occult Blood Negative, Urine Nitrite Negative, Urine Bilirubin 1 H, Urine Urobilinogen 4 H, Ur Leukocyte Esterase 100 H, Urine RBC 0 SEEN, Urine WBC 5-10 SEEN, Ur Squamous Epith Cells 0-5 SEEN, Amorphous Sediment 1+ URATE, Urine Bacteria 0 SEEN, Urine Mucus 0 SEEN 08/01/22 00:05: POC Glucose 108 H 08/01/22 06:28: WBC 4.2 L, RBC 4.03 L, Hgb 11.7 L, Hct 37.5, MCV 93.1, MCH 29.0, MCHC 31.2 L, RDW Std Deviation 44.3 H, RDW Coeff of Madalyn 12.9, Plt Count 147 L, MPV 12.4 H, Immature Gran % (Auto) 0.200, Neut % (Auto) 77.8 H, Lymph % (Auto) 15.1 L, Stephens % (Auto) 6.7, Eos % (Auto) 0.0, Baso % (Auto) 0.2, Absolute Neuts (auto) 3.3, Absolute Lymphs (auto) 0.63 L, Nucleated RBC % 0 08/01/22 06:34: POC Glucose 170 H Micro: Microbiology 07/31/22 20:29 Urine, Clean Catch Legionella Antigen - Final 07/31/22 20:29 Urine, Clean Catch Streptococcus pneumoniae Antigen (M - Final 07/31/22 20:10 Nasal Secretion SARS-CoV-2 & FLU Antigen (Rapid) - Final SARS-CoV-2 (COVID 19) Radiography Diagnostic Testing: Radiology Impression Brain CT 07/31/22 19:52 IMPRESSION: Moderate cortical and central atrophy. Mild cerebellar atrophy. Mild chronic microvascular ischemic change. Electronically Signed: Jer Jennings MD, MARISA at 20:50 EST , ADDENDUM: 07/31/222104 IMPRESSION: undefined Chest X-Ray 07/31/22 20:34 IMPRESSION: Right middle lobe, lingula and left lower lobe infiltrates. Small left pleural effusion. Electronically Signed: Jer Jennings MD, MARISA at 20:49 EST , Chest CT 08/01/22 00:00 IMPRESSION: 1. Bilateral multilobar pneumonia with reactive mediastinal/hilar adenopathy. 2. No central PE. Electronically Signed: Jesus Phillips MD at 2:27 EST , Physical Exam Narrative GENERAL: Patient appears ill looking HEENT: Atraumatic; normocephalic EYES; Anicteric, Normal Conjunctiva NECK; supple, normal thyroid, RESPIRATORY: Diminished to auscultation CARDIOVASCULAR:? Regular S1 S2, GI:? soft, normoactive bowel sounds, : No Renal angle tenderness; EXTREMITIES:? No edema, no clubbing, MUSCULOSKELETAL:? no muscle wasting NEURO:? Awake;? no lateralizing signs. SKIN:? No Rash PSYCH; Flat? affect Assessment & Plan Assessment/Plan (1) Bilateral pneumonia: (2) Acute hypokalemia: (3) Hypoxia: PLAN: Plan Patient is a 77-year-old lady recently discharged from the hospital following admission for influenza A virus infection presented with progressive generalized weakness. CT of the chest obtained did show Bilateral multilobar pneumonia with reactive mediastinal/hilar adenopathy.. Neck COVID 19 acid came back positive admitted to monitored bed for further management 1.? Acute hypoxia ? Secondary to recent COVID-19 pneumonia with superimposed bacterial pneumonia. Admitted to a monitored bed started on broad-spectrum antibiotic therapy with Zosyn placed on supplemental oxygen culture sent we will follow-up on result. Patient progressed being monitored with oxygen requirement as well as daily CBC with differential 2.? Diabetes mellitus type 2 ? Patient blood glucose control not optimal did continue with home regimen with plans to adjust doses as needed.? She was also placed on Accu-Cheks before meals and at bedtime with sliding scale coverage 3.? Hypertension - Blood pressure controlled, home medications continued with dose adjustment as needed 4.? GERD ? On omeprazole did continue 5.? Cardiac arrhythmias including PSVT as well as PACs and PVCs ? Patient followed by cardiology on beta-blockers did continue 6.? Class III obesity with BMI of 48 ? Weight loss advised 7.? Obstructive sleep apnea ? PAP therapy at night 8.? Mild intermittent asthma ? Patient was placed on bronchodilator treatment in addition to systemic steroid 9.? Physical deconditioning - Requested for PT OT eval and social services analyst to assist with discharge planning 10. DVT prophylaxis ? Lovenox Time spent in the patient's overall evaluation,decision-making process, review of diagnostic data, adjustment of medication, review of med reconciliation, ordering of labs for the following morning, discussion with other providers, nursing nursing and ancillary staff involved in patient's care, documentation, 58 Minutes Charges/Coding Visit Charges Inpatient E&M: 70382 [facility] Hosp L3
[2022-08-01 07:56] LABS: Anion Gap 7 (5-15); BUN 14 mg/dL (7-18); BUN/Creat Ratio 18.9 RATIO (10-20); Calcium,Total 8.1 mg/dL (8.5-10.1); Chloride 101 mmol/L (98-107); Creatinine, Serum 0.74 mg/dL (0.55-1.02); EST Glomerular Filtration Rate 81 mL/min (>60); Est Glom Filt Rate - Afr Amer 98 mL/min (>60); Estimated Creatinine Clearance 49.24 ml/min; Glucose 178 mg/dL (74-106); Potassium 3.5 mmol/L (3.5-5.1); Sodium Level 137 mmol/L (136-145)
[2022-08-01] MEDS: 0.9% Normal Saline 1,000 ML 125 ML IV (07:58)
[2022-08-01] MEDS: Glucerna Shake 120 ML LIQUID PO ×3 (08:30→17:15)
[2022-08-01] MEDS: Aspirin E.C. 81 MG Tablet PO (09:33)
[2022-08-01] MEDS: amLODIPine 5 MG Tablet PO (09:33)
[2022-08-01] MEDS: Metoprolol Tartrate 25 MG Tablet PO ×2 (09:33→22:42)
[2022-08-01] MEDS: Ramipril 10 MG Capsule PO ×2 (09:33→22:41)
[2022-08-01] MEDS: Pantoprazole Sodium 20 MG Tablet PO (09:33)
[2022-08-01] MEDS: Enoxaparin 40 MG/0.4 ML Syringe SC (09:38)
[2022-08-01] MEDS: Insulin NPH Human 100 UNITS/ML PEN 13 UNITS SC (09:38)
[2022-08-01 11:50] LABS: Bedside Glucose 383 mg/dL (74-106)
[2022-08-01] MEDS: CLARIFY ORDER 1 EACH NOTE (14:51)
[2022-08-01 17:01] LABS: Bedside Glucose 320 mg/dL (74-106)
[2022-08-01] MEDS: Insulin Glargine-YFGN 100 UNIT/ML Pen 30 UNIT SC (22:34)
[2022-08-02 01:01] LABS: Bedside Glucose 368 mg/dL (74-106)
[2022-08-02 03:30] VITALS: BP 111/53; PULSE 83; RESP 16; TEMP 36.7; O2SAT 93
--- NOTE | 2022-08-02 04:11 | NURSING ---
Patient Oxygen saturation 87% at 3L stating SOB Oxygen increased to 4L and Saturation at 92%
[2022-08-02] MEDS: Insulin Lispro 100 UNIT/ML INSULN.PEN SC ×2 (06:40→11:40)
[2022-08-02 06:42] LABS: Absolute Lymphocyte Count 0.56 X10^3/uL (0.83-4.51); Basophil# 0.01 X10^3/uL; Basophil% 0.2 % (0-1); Eosinophil# 0.02 X10^3/uL; Eosinophils% 0.4 % (0-5); Hematocrit 36.4 % (37-47); Hemoglobin 11.6 g/dL (12.0-15.0); Lymphocyte # 0.56 X10^3/ul (0.83-4.51); Lymphocyte % 11.1 % (19-41); Mean Corp Hgb Conc 31.9 g/dL (32-36); Mean Corpuscular Hgb 29.4 pg (27.0-32.0); Mean Corpuscular Volume 92.2 fL (81-99); Mean Platelet Vol. 12.6 fl (6.2-12.0); Monocyte# 0.41 X10^3/uL; Monocyte% 8.1 % (0-10); NRBC Flagged by Analyzer 0.6 % (0-5); Neutrophil # 4.04 X10^3/uL (2.7-7.7); Neutrophil % 79.8 % (47-70); POSITIVE DIFFERENTIAL YES; Platelet Count 158 K/mm3 (150-450); RBC Distribution Width CV 12.9 % (11.6-14.6); RBC Distribution Width SD 43.3 fl (35.1-43.9); Red Blood Count 3.95 M/mm3 (4.2-5.4); White Blood Count 5.1 K/mm3 (4.4-11.0)
[2022-08-02 06:58] LABS: Differential Indicated SCAN CRITERIA MET
[2022-08-02 07:13] LABS: Anion Gap 10 (5-15); BUN 9 mg/dL (7-18); BUN/Creat Ratio 13.5 RATIO (10-20); Chloride 101 mmol/L (98-107); Creatinine, Serum 0.66 mg/dL (0.55-1.02); EST Glomerular Filtration Rate 92 mL/min (>60); Est Glom Filt Rate - Afr Amer 111 mL/min (>60); Estimated Creatinine Clearance 49.24 ml/min; Glucose 217 mg/dL (74-106); Magnesium 1.7 mg/dL (1.6-2.6); Phosphorus 2.4 mg/dL (2.5-4.9); Potassium 3.7 mmol/L (3.5-5.1); Sodium Level 137 mmol/L (136-145)
[2022-08-02 07:55] LABS: Bedside Glucose 217 mg/dL (74-106)
[2022-08-02 08:02] VITALS: O2SAT 93
[2022-08-02 08:38] VITALS: BP 154/57; PULSE 73; RESP 18; TEMP 36.7; O2SAT 94
[2022-08-02] MEDS: Glucerna Shake 120 ML LIQUID PO ×2 (08:41→11:44)
[2022-08-02 08:42] VITALS: PULSE 73
[2022-08-02] MEDS: Metoprolol Tartrate 25 MG Tablet PO (08:42)
[2022-08-02] MEDS: Pantoprazole Sodium 20 MG Tablet PO (08:42)
[2022-08-02] MEDS: Aspirin E.C. 81 MG Tablet PO (08:42)
[2022-08-02] MEDS: Ramipril 10 MG Capsule PO (08:42)
[2022-08-02] MEDS: Insulin NPH Human 100 UNITS/ML PEN 13 UNITS SC (08:43)
[2022-08-02] MEDS: amLODIPine 5 MG Tablet PO (08:43)
[2022-08-02] MEDS: Enoxaparin 40 MG/0.4 ML Syringe SC (08:43)
--- NOTE | 2022-08-02 08:54 | PN.HOSP_ITS ---
Subjective Subjective Feels well. Breathing well w 4liters/m Objective Data Objective Data Vital Signs: Vital Signs Temp Pulse Resp BP Pulse Ox O2 Del Method O2 Flow Rate 36.7 C 73 18 154/57 H 94 Nasal Cannula 4 08/02/22 08:38 08/02/22 08:42 08/02/22 08:38 08/02/22 08:38 08/02/22 08:38 08/02/22 08:50 08/02/22 08:50 Oxygen Flow Rate (L/min) 4 Oxygen Delivery Method Nasal Cannula Weight: 149.5 kg Body Mass Index (BMI) 47.9 Intake & Output: Intake and Output for Last 24 Hours 07/31/22 08/01/22 08/02/22 23:59 23:59 23:59 Intake Total 3700 / 3700 50 / 50 Balance 3700 / 3700 50 / 50 Lab / Micro Data Result Diagrams: 08/02/22 06:00 08/02/22 06:00 Labs: Laboratory Results - last 24 hr 08/01/22 11:24: POC Glucose 383 H 08/01/22 16:34: POC Glucose 320 H 08/01/22 22:32: POC Glucose 368 H 08/02/22 06:00: WBC 5.1, RBC 3.95 L, Hgb 11.6 L, Hct 36.4 L, MCV 92.2, MCH 29.4, MCHC 31.9 L, RDW Std Deviation 43.3, RDW Coeff of Madalyn 12.9, Plt Count 158, MPV 12.6 H, Immature Gran % (Auto) 0.400, Neut % (Auto) 79.8 H, Lymph % (Auto) 11.1 L, Adams % (Auto) 8.1, Eos % (Auto) 0.4, Baso % (Auto) 0.2, Absolute Neuts (auto) 4.0, Absolute Lymphs (auto) 0.56 L, Nucleated RBC % 0.6 08/02/22 06:00: Sodium 137, Potassium 3.7, Chloride 101, Carbon Dioxide 26.0, Anion Gap 10, BUN 9, Creatinine 0.66, Estim Creat Clear Calc 49.24, Est GFR (MDRD) Af Amer 111, Est GFR (MDRD) Non-Af 92, BUN/Creatinine Ratio 13.5, Glucose 217 H, Calcium 8.0 L, Phosphorus 2.4 L, Magnesium 1.7 08/02/22 06:40: POC Glucose 217 H Micro: Microbiology 07/31/22 20:29 Urine, Clean Catch Legionella Antigen - Final 07/31/22 20:29 Urine, Clean Catch Streptococcus pneumoniae Antigen (M - Final 07/31/22 20:10 Nasal Secretion SARS-CoV-2 & FLU Antigen (Rapid) - Final SARS-CoV-2 (COVID 19) Physical Exam Const alert and no apparent distress Resp Resp Narrative: coarse BS bilaterally. Cardio regular rate, regular rhythm, S1 normal heart sound and S2 normal heart sound GI normal to inspection, nondistended, normoactive bowel sounds Assessment & Plan Assessment/Plan (1) Bilateral pneumonia: PLAN: Strep and legionella antigens negative On pip/tazo. change to augmentin speech therapy passed. (2) Acute hypokalemia: PLAN: resolved (3) Hypoxia: PLAN: 2/2 pnuemonia wean oxygen as tolerated PLAN: Plan Chronic conditions: * Diabetes mellitus type 2: Patient blood glucose control not optimal did continue with home regimen with plans to adjust doses as needed.? She was also placed on Accu-Cheks before meals and at bedtime with sliding scale coverage * Hypertension- Blood pressure controlled, home medications continued with dose adjustment as needed * GERD? On omeprazole did continue * Cardiac arrhythmias including PSVT as well as PACs and PVCs? Patient followed by cardiology on beta-blockers did continue * Class III obesity with BMI of 48? Weight loss advised * Obstructive sleep apnea? PAP therapy at night * Mild intermittent asthma? Patient was placed on bronchodilator treatment in addition to systemic steroid Physical deconditioning - Requested for PT OT eval and sr. social media & mobile manager to assist with discharge planning. To SNF
--- NOTE | 2022-08-02 10:01 | CASEMGMT ---
SW reviewed chart as [facility] Facility is being recommended. SW went to patient's room and met with patient and her . SW introduced self and role at [facility]. SW provided them with a list of half-way facility providers including quality and resource use data and consistent with patient?s preferred geographic region, medical needs, and insurance network were provided from the [facility] Guide. They reviewed the list and the [facility] choice would be [facility] and second would be [facility]. SW let them know SW will send referral. Patient's asked if the hospital will transport patient and SW explained if he feels comfortable transporting her he can, however [facility] can set up wheelchair transport which is not covered by insurance. They will think about it. SW sent referral to [facility] via [facility]. BRANDY also spoke with Laina over the phone. Plan: d/c to [facility] pending acceptance and insurance approval. Dayanara VIVEROS
[2022-08-02] MEDS: Albuterol 2.5 MG/3 ML VIAL.NEB. INHALATION (10:22)
[2022-08-02] MEDS: Budesonide Respules 0.5 MG/2 ML AMPUL.NEB. INHALATION (10:22)
[2022-08-02 10:56] VITALS: PULSE 88; RESP 21
--- NOTE | 2022-08-02 11:13 | CASEMGMT ---
BRANDY notified patient and her that patient was accepted at [facility]. SW let them know SW does not know if that will be today as the physician has not rounded yet. Patient's said he will transport her. He knows to have her O2 tank with him. SW let him know SW will call him when patient is being discharged. Plan: d/c to [facility] under skilled level of care on a 7000. Dayanara VIVEROS
--- NOTE | 2022-08-02 11:25 | CASEMGMT ---
RN CM Face to Face with patient for initial transition planning/care coordination assessment. RN CM introduced self and role at [facility]. Patient lying in bed, alert and oriented. Patient willing to participate in assessment and is able to answer all questions appropriately. Care providers, pharmacy, and demographics verified. Patient wishes to discharge to [facility]. Patient states she has no further needs or concerns at this time. CM to follow for discharge planning needs that may arise. PCP: [facility] Specialists: Tania device sales consultant; Oren borderer Preferred Pharmacy: [facility] Insurance: [id number] Prescription Benefit: yes Living Will/HPOA: yes, Elijah Seals LNOK: , son Living Arrangements: Patient lives with in a single story home with no steps to enter. Patient states she is independent at home. Transportation: DME/HHC: Patient states she has walker, wheelchair, pulse ox, cpap and home oxygen through [employer] at 2lpm continuously and 4 with ambulation. Patient has had [facility] HHC in the past. Disposition Plan: Patient to discharge to [facility]. Nava AMADOR, RN, CM
[2022-08-02 12:06] LABS: Bedside Glucose 286 mg/dL (74-106)
--- NOTE | 2022-08-02 12:32 | PCM.TXEXTCAR ---
Diet Diet Order/Speech Therapy: 07/31/22 23:28 Diet: Consistent Carb - Calorie Controlled Food consistency:: Regular Liquid Consistency:: Regular/Thin How many daily calories?: 1800 calorie Therapies Physical Therapy: Eval and Treat Occupational Therapy: Eval and Treat Problem/Diagnosis (1) Bilateral pneumonia: Status: Acute Code(s): J18.9 - Pneumonia, unspecified organism Plan: Strep and legionella antigens negative On pip/tazo. change to augmentin speech therapy passed. (2) Acute hypokalemia: Status: Resolved Code(s): E87.6 - Hypokalemia Plan: resolved (3) Hypoxia: Status: Acute Code(s): R09.02 - Hypoxemia Plan: 2/2 pnuemonia wean oxygen as tolerated Plan Chronic conditions: Diabetes mellitus type 2: Patient blood glucose control not optimal did continue with home regimen with plans to adjust doses as needed.? She was also placed on Accu-Cheks before meals and at bedtime with sliding scale coverage Hypertension- Blood pressure controlled, home medications continued with dose adjustment as needed GERD? On omeprazole did continue Cardiac arrhythmias including PSVT as well as PACs and PVCs? Patient followed by cardiology on beta-blockers did continue Class III obesity with BMI of 48? Weight loss advised Obstructive sleep apnea? PAP therapy at night Mild intermittent asthma? Patient was placed on bronchodilator treatment in addition to systemic steroid Physical deconditioning - Requested for PT OT eval and home health care social worker to assist with discharge planning. To SNF Allergies/Procedures Done in Hospital Allergies pravastatin Allergy (Unknown, Verified 07/31/22 23:52) unknown rosuvastatin [From Crestor] Allergy (Unknown, Verified 07/31/22 23:52) myalgias simvastatin Allergy (Unknown, Verified 07/31/22 23:52) unknown escitalopram Allergy (Verified 07/31/22 23:52) Other hydrochlorothiazide Allergy (Verified 07/31/22 23:52) Other Vfwmojw-HEZ-MhW Reductase Inhibitor [Bdwqswk-Oxn-Jnz Reductase Inhibitor] Adverse Reaction (Severe, Verified 07/31/22 23:52) myalgias codeine Adverse Reaction (Verified 07/31/22 23:52) Nausea naproxen [From Naprosyn] Adverse Reaction (Verified 07/31/22 23:52) Nausea Procedures: None Type of Care/Length of Stay Estimated LOS: Convalescent Care Less Than 30 days Type of Care Needed: Skilled Rehab Potential: Fair Prognosis: Good Additional Orders/Day of Discharge Day of Discharge: 08/02/22 Dietary and Speech Recommendations Dietitian Recommendations/Changes: continue 1800 calorie controlled/consistent CHO diet w/ 120mL glucerna TID; will monitor need for Glucerna at time of follow-up. Discharge Plan Admission Admit Date/Time: 07/31/22 22:19 Primary Reason for Your Visit: Pneumonia Attending Provider: Zay Escalera Primary Care Provider: Luzma Palencia Consulting Providers: Daisy Gan ; Tawanda Herring Discharge Orders/Prescriptions Prescriptions: New acetaminophen [Tylenol] 325 mg Tablet 650 mg PO Q6H PRN PRN (Reason: Pain 1-10 Or Fever >100.7) Qty: 0 0RF insulin lispro [Humalog KwikPen Insulin] 100 unit/mL Insulin Pen See Protocol subcut ACHS Qty: 0 0RF Protocol: 4. Sliding Scale Insulin High-Med Dosing Condition: 150-199 mg/dl = 2 units Condition: 200-259 mg/dl = 4 units Condition: 260-324 mg/dl = 6 units Condition: 325-374 mg/dl = 8 units Condition: 375-409 mg/dl = 10 units Condition: 410-449 mg/dl = 11 units Condition: Greater than 449 call physician Protocol Text: - Use for Total Daily Dose of Insulin 56-80 units - Patient who are insulin resistant or septic HIGH MEDIUM DOSING ALGORITHM Glucerna 1.2 Will 0.06-1.2 gram-kcal/mL Liquid 120 ml PO TIDCM Qty: 0 0RF amoxicillin-pot clavulanate 875-125 mg tablet 1 tab PO BID Qty: 12 0RF Continued aspirin 81 mg tablet,delayed release (DR/EC) 81 mg PO DAILY cholecalciferol (vitamin D3) 1,250 mcg (50,000 unit) capsule 1,250 mcg PO QWEEK furosemide 20 mg tablet 20 mg PO DAILY PRN (Reason: water pill) insulin lispro 100 unit/mL solution 6 unit subcut TIDCM Protocol: 4. Sliding Scale Insulin High-Med Dosing Condition: 150-199 mg/dl = 2 units Condition: 200-259 mg/dl = 4 units Condition: 260-324 mg/dl = 6 units Condition: 325-374 mg/dl = 8 units Condition: 375-409 mg/dl = 10 units Condition: 410-449 mg/dl = 11 units Condition: Greater than 449 call physician Protocol Text: - Use for Total Daily Dose of Insulin 56-80 units - Patient who are insulin resistant or septic HIGH MEDIUM DOSING ALGORITHM Label Comments: INJECT 3 TO 10 UNITS SUBCUTANEOUSLY BEFORE MEALS DIRECTED budesonide-formoterol 160-4.5 mcg/actuation HFA aerosol inhaler 2 puff inhalation BID omeprazole magnesium [Prilosec OTC] 20 mg tablet,delayed release (DR/EC) 20 mg PO DAILY ramipril 10 MG capsule 10 mg PO BID Label Comments: TAKE 1 CAPSULE BY MOUTH TWICE DAILY zolpidem 5 mg Tablet 2.5 mg PO QHS PRN (Reason: Insomnia) albuterol sulfate [Ventolin HFA] 90 mcg/actuation HFA aerosol inhaler 2 puff INHALATION 4XD PRN (Reason: sob) Qty: 8.5 0RF Rx Instructions: use four times a day for the next seven days, then use every 6 hours as needed for shortness of breath amlodipine [Norvasc] 5 mg tablet 5 mg PO DAILY Changed insulin glargine-yfgn 100 unit/mL (3 mL) insulin pen 24 unit subcut BID Qty: 15 0RF Discontinued Novolin N NPH U-100 Insulin 100 unit/mL suspension 13 unit subcut QAM cefdinir 300 mg capsule 300 mg PO BID 1 Days Qty: 2 0RF No Action metoprolol tartrate 25 mg tablet 25 mg PO BID Referrals / Follow Up: Luzma Palencia MD [Primary Care Provider] - Within 2 Weeks Disposition Disposition (needs filled in before D/C Order can be placed): [facility] Facility
--- NOTE | 2022-08-02 12:37 | DS.PCM_ITS ---
Providers Date of Admission: 07/31/22 Primary Care Physician: Dr. Luzma Palencia MD Reason For Visit: FAILURE TO THRIVE,COVID Diagnosis Discharge Diagnosis (1) Bilateral pneumonia: Status: Acute Code(s): J18.9 - Pneumonia, unspecified organism Plan: Strep and legionella antigens negative On pip/tazo. change to augmentin speech therapy passed. (2) Acute hypokalemia: Status: Resolved Code(s): E87.6 - Hypokalemia Plan: resolved (3) Hypoxia: Status: Acute Code(s): R09.02 - Hypoxemia Plan: 2/2 pnuemonia wean oxygen as tolerated Plan Chronic conditions: * Diabetes mellitus type 2: Patient blood glucose control not optimal did continue with home regimen with plans to adjust doses as needed.? She was also placed on Accu-Cheks before meals and at bedtime with sliding scale coverage. Patient on glargine as well as NPH. Will change dosing to 24 units of glargine twice daily. In addition to scheduled NovoLog 6 units with meals * Hypertension- Blood pressure controlled, home medications continued with dose adjustment as needed * GERD? On omeprazole did continue * Cardiac arrhythmias including PSVT as well as PACs and PVCs? Patient followed by cardiology on beta-blockers did continue * Class III obesity with BMI of 48? Weight loss advised * Obstructive sleep apnea? PAP therapy at night * Mild intermittent asthma? Patient was placed on bronchodilator treatment in addition to systemic steroid Physical deconditioning - Requested for PT OT eval and marriage and family social worker to assist with discharge planning. To SNF Medications at Discharge Home Medications aspirin 81 mg tablet,delayed release 81 mg PO DAILY heart health 11/24/17 ramipril 10 mg capsule 10 mg PO BID HEART 01/19/19 cholecalciferol (vitamin D3) 1,250 mcg (50,000 unit) capsule 1,250 mcg PO QWEEK SUPPLEMENT 12/03/19 furosemide 20 mg tablet 20 mg PO DAILY PRN water pill 01/22/21 budesonide-formoterol HFA 160 mcg-4.5 mcg/actuation aerosol inhaler 2 puff inhalation BID ASTHMA 12/21/21 zolpidem 5 mg tablet 2.5 mg PO QHS PRN Insomnia 02/11/22 insulin lispro 100 unit/mL subcutaneous solution 6 unit subcut TIDCM dm 06/22/22 omeprazole magnesium 20 mg tablet,delayed release (Prilosec OTC) 20 mg PO DAILY GERD 06/22/22 albuterol sulfate 90 mcg/actuation aerosol inhaler (Ventolin HFA) 2 puff inhalation 4XD PRN sob #8.5 grams 07/14/22 amlodipine 5 mg tablet (Norvasc) 5 mg PO DAILY BLOOD PRESSURE 07/17/22 metoprolol tartrate 25 mg tablet 25 mg PO BID BLOOD PRESSURE 07/17/22 acetaminophen 325 mg tablet (Tylenol) 650 mg PO Q6H PRN PRN Pain 1-10 Or Fever >100.7 #0 tabs 08/02/22 amoxicillin 875 mg-potassium clavulanate 125 mg tablet 1 tab PO BID #12 tabs 08/02/22 insulin glargine-yfgn 100 unit/mL (3 mL) subcutaneous pen 24 unit (0.24 mL) subcut BID #15 mL 08/02/22 insulin lispro 100 unit/mL subcutaneous pen (Humalog KwikPen (U-100) Insulin) See Protocol subcut ACHS #0 mL 08/02/22 nutrition tx glu intol,lac-free,soy-fiber 0.06 gram-1.2 kcal/mL liquid (Glucerna 1.2 Will) 120 ml PO TIDCM #0 mL 08/02/22 Hospital Course Operations None Procedures None Summary of Care Provided Minutes Spent on Discharge: 28 Weight / BMI Weight Weight: 149.5 kg Body Mass Index (BMI) 47.9 ABG / Lab / Microbiology Data Result Diagrams: 08/02/22 06:00 08/02/22 06:00 Laboratory: Laboratory Results - last 24 hr 08/01/22 16:34: POC Glucose 320 H 08/01/22 22:32: POC Glucose 368 H 08/02/22 06:00: WBC 5.1, RBC 3.95 L, Hgb 11.6 L, Hct 36.4 L, MCV 92.2, MCH 29.4, MCHC 31.9 L, RDW Std Deviation 43.3, RDW Coeff of Madalyn 12.9, Plt Count 158, MPV 12.6 H, Immature Gran % (Auto) 0.400, Neut % (Auto) 79.8 H, Lymph % (Auto) 11.1 L, Stephenson % (Auto) 8.1, Eos % (Auto) 0.4, Baso % (Auto) 0.2, Absolute Neuts (auto) 4.0, Absolute Lymphs (auto) 0.56 L, Nucleated RBC % 0.6 08/02/22 06:00: Sodium 137, Potassium 3.7, Chloride 101, Carbon Dioxide 26.0, Anion Gap 10, BUN 9, Creatinine 0.66, Estim Creat Clear Calc 49.24, Est GFR (M DRD) Af Amer 111, Est GFR (MDRD) Non-Af 92, BUN/Creatinine Ratio 13.5, Glucose 217 H, Calcium 8.0 L, Phosphorus 2.4 L, Magnesium 1.7 08/02/22 06:40: POC Glucose 217 H 08/02/22 11:38: POC Glucose 286 H Microbiology: Microbiology 07/31/22 20:29 Urine, Catheterized Urine Culture - Preliminary Alpha hemolytic organism Gram positive organism Gram positive organism#2 07/31/22 20:29 Urine, Clean Catch Legionella Antigen - Final 07/31/22 20:29 Urine, Clean Catch Streptococcus pneumoniae Antigen (M - Final 07/31/22 20:10 Nasal Secretion SARS-CoV-2 & FLU Antigen (Rapid) - Final SARS-CoV-2 (COVID 19) Meaningful Use Info Meaningful Use Diagnoses (Choose all that apply): None applicable Discharge Plan Admission Admit Date/Time: 07/31/22 22:19 Primary Reason for Your Visit: Pneumonia Attending Provider: Zay Escalera Primary Care Provider: Luzma Palencia Consulting Providers: Daisy Gan ; Tawanda Herrnig Discharge Orders/Prescriptions Prescriptions: New acetaminophen [Tylenol] 325 mg Tablet 650 mg PO Q6H PRN PRN (Reason: Pain 1-10 Or Fever >100.7) Qty: 0 0RF insulin lispro [Humalog KwikPen Insulin] 100 unit/mL Insulin Pen See Protocol subcut ACHS Qty: 0 0RF Protocol: 4. Sliding Scale Insulin High-Med Dosing Condition: 150-199 mg/dl = 2 units Condition: 200-259 mg/dl = 4 units Condition: 260-324 mg/dl = 6 units Condition: 325-374 mg/dl = 8 units Condition: 375-409 mg/dl = 10 units Condition: 410-449 mg/dl = 11 units Condition: Greater than 449 call physician Protocol Text: - Use for Total Daily Dose of Insulin 56-80 units - Patient who are insulin resistant or septic HIGH MEDIUM DOSING ALGORITHM Glucerna 1.2 Will 0.06-1.2 gram-kcal/mL Liquid 120 ml PO TIDCM Qty: 0 0RF amoxicillin-pot clavulanate 875-125 mg tablet 1 tab PO BID Qty: 12 0RF Continued aspirin 81 mg tablet,delayed release (DR/EC) 81 mg PO DAILY cholecalciferol (vitamin D3) 1,250 mcg (50,000 unit) capsule 1,250 mcg PO QWEEK furosemide 20 mg tablet 20 mg PO DAILY PRN (Reason: water pill) insulin lispro 100 unit/mL solution 6 unit subcut TIDCM Protocol: 4. Sliding Scale Insulin High-Med Dosing Condition: 150-199 mg/dl = 2 units Condition: 200-259 mg/dl = 4 units Condition: 260-324 mg/dl = 6 units Condition: 325-374 mg/dl = 8 units Condition: 375-409 mg/dl = 10 units Condition: 410-449 mg/dl = 11 units Condition: Greater than 449 call physician Protocol Text: - Use for Total Daily Dose of Insulin 56-80 units - Patient who are insulin resistant or septic HIGH MEDIUM DOSING ALGORITHM Label Comments: INJECT 3 TO 10 UNITS SUBCUTANEOUSLY BEFORE MEALS DIRECTED budesonide-formoterol 160-4.5 mcg/actuation HFA aerosol inhaler 2 puff inhalation BID omeprazole magnesium [Prilosec OTC] 20 mg tablet,delayed release (DR/EC) 20 mg PO DAILY ramipril 10 MG capsule 10 mg PO BID Label Comments: TAKE 1 CAPSULE BY MOUTH TWICE DAILY zolpidem 5 mg Tablet 2.5 mg PO QHS PRN (Reason: Insomnia) albuterol sulfate [Ventolin HFA] 90 mcg/actuation HFA aerosol inhaler 2 puff INHALATION 4XD PRN (Reason: sob) Qty: 8.5 0RF Rx Instructions: use four times a day for the next seven days, then use every 6 hours as needed for shortness of breath amlodipine [Norvasc] 5 mg tablet 5 mg PO DAILY Changed insulin glargine-yfgn 100 unit/mL (3 mL) insulin pen 24 unit subcut BID Qty: 15 0RF Discontinued Novolin N NPH U-100 Insulin 100 unit/mL suspension 13 unit subcut QAM cefdinir 300 mg capsule 300 mg PO BID 1 Days Qty: 2 0RF No Action metoprolol tartrate 25 mg tablet 25 mg PO BID Referrals / Follow Up: Luzma Palencia MD [Primary Care Provider] - Within 2 Weeks Disposition Disposition (needs filled in before D/C Order can be placed): [facility] Charges/Coding Visit Charges Inpatient E&M: 20109 Disch Hosp
[2022-08-02 13:25] VITALS: BP 148/61; PULSE 75; RESP 17; TEMP 37.2; O2SAT 95
--- NOTE | 2022-08-02 13:38 | NURSING ---
report called to P[facility] at [facility].
== END 2022-08-02 13:59 | disposition skilled nursing facility (03) | DRG 177 ==
LOC: ED 19:56 → PCU 22:41
PROVIDERS: Internal Medicine; Admitting Provider Student in an Organized Health Care Education/Training Program; Emergency Provider Emergency Medicine; PCP Internal Medicine
DX: U07.1 COVID-19 (principal); I47.1 Supraventricular tachycardia; Z68.42 Body mass index [BMI] 45.0-49.9, adult; E66.01 Morbid (severe) obesity due to excess calories; E11.9 Type 2 diabetes mellitus without complications; Z79.4 Long term (current) use of insulin; J12.82 Pneumonia due to coronavirus disease 2019; J15.9 Unspecified bacterial pneumonia; J91.8 Pleural effusion in other conditions classified elsewhere; R62.7 Adult failure to thrive; G47.33 Obstructive sleep apnea (adult) (pediatric); E87.6 Hypokalemia; I10 Essential (primary) hypertension; E78.5 Hyperlipidemia, unspecified; K21.9 Gastro-esophageal reflux disease without esophagitis; J45.20 Mild intermittent asthma, uncomplicated; I49.1 Atrial premature depolarization; I49.3 Ventricular premature depolarization; R59.1 Generalized enlarged lymph nodes; R09.02 Hypoxemia; Z79.82 Long term (current) use of aspirin; Z79.899 Other long term (current) drug therapy; Z87.891 Personal history of nicotine dependence
CPT/HCPCS: 36415; 70450; 71045; 71260; 80048; 80053; 81001; 82962; 83605; 83735; 84100; 85025; 87077; 87086; 87088; 87186; 87428; 87449; 92610; 93005; 94640; 96361; 96365; 96366; 96372; 97162; 97166; 97802; 99221; 99285; J7030; Q9967; A4216; G0378

== ENCOUNTER 2022-10-01 13:49 | Emergency (ER) | payer MEDICARE, SELFPAY ==
[2022-10-01 13:50] VITALS: BP 159/74; PULSE 78; RESP 16; TEMP 36.4; O2SAT 99
[2022-10-01 14:21] VITALS: BMI 49.4
--- NOTE | 2022-10-01 14:36 | RAD_ITS ---
EXAM: XR CHEST, 1 VIEW CLINICAL INDICATION: chest pain TECHNIQUE: Frontal view of the chest. This report was created using [employer] report generation technology. COMPARISON: 07.31.22 FINDINGS: LUNGS AND PLEURAL SPACES: Unremarkable. No consolidation or edema. No pneumothorax. No effusion. HEART: Unremarkable. Cardiac silhouette not enlarged. MEDIASTINUM: Central airways and mediastinal contour are unremarkable. BONES/JOINTS: Unremarkable. SOFT TISSUES: Unremarkable. RAD/Chest 1 View (Portable) IMPRESSION: No radiographic evidence of acute cardiopulmonary disease. Electronically Signed: Mohsen Ren MD at 15:12 EDT ,
--- NOTE | 2022-10-01 14:36 | EKG12_ITS ---
Test Reason : CP Blood Pressure : / mmHG Vent. Rate : 075 BPM Atrial Rate : 075 BPM P-R Int : 140 ms QRS Dur : 076 ms QT Int : 382 ms P-R-T Axes : 000 -15 141 degrees QTc Int : 426 ms Normal sinus rhythm Abnormal QRS-T angle, consider primary T wave abnormality Abnormal ECG Confirmed by THOMAS JOSE, BRIAN ([id number]), loan expeditor MAMIE HENDERSON ([id number]) on 10/04/2022 12:22:45 P M Referred By: COLTON/MINA Confirmed By:URIEL GUZMAN MD
[2022-10-01 15:02] LABS: Absolute Lymphocyte Count 1.06 X10^3/uL (0.83-4.51); Absolute Neutrophil Count 4.1 X10^3/uL (2.0-7.7); Basophil# 0.02 X10^3/uL; Basophil% 0.4 % (0-1); Eosinophil# 0.08 X10^3/uL; Eosinophils% 1.4 % (0-5); Hematocrit 40.7 % (37-47); Hemoglobin 12.9 g/dL (12.0-15.0); Lymphocyte # 1.06 X10^3/ul (0.83-4.51); Lymphocyte % 18.8 % (19-41); Mean Corp Hgb Conc 31.7 g/dL (32-36); Mean Corpuscular Hgb 30.1 pg (27.0-32.0); Mean Corpuscular Volume 95.1 fL (81-99); Monocyte# 0.44 X10^3/uL; Monocyte% 7.8 % (0-10); NRBC Flagged by Analyzer 0 % (0-5); Neutrophil # 4.05 X10^3/uL (2.7-7.7); Neutrophil % 71.6 % (47-70); Platelet Count 201 K/mm3 (150-450); RBC Distribution Width CV 13.3 % (11.6-14.6); RBC Distribution Width SD 46.5 fl (35.1-43.9); Red Blood Count 4.28 M/mm3 (4.2-5.4); White Blood Count 5.7 K/mm3 (4.4-11.0)
[2022-10-01] MEDS: Aspirin 81 MG TAB.CHEW 324 MG PO (15:20)
[2022-10-01 15:23] LABS: Anion Gap 6 (5-15); BUN 20 mg/dL (7-18); BUN/Creat Ratio 25.3 RATIO (10-20); Calcium,Total 9.4 mg/dL (8.5-10.1); Chloride 106 mmol/L (98-107); Creatinine, Serum 0.79 mg/dL (0.55-1.02); EST Glomerular Filtration Rate 75 mL/min (>60); Est Glom Filt Rate - Afr Amer 91 mL/min (>60); Estimated Creatinine Clearance 49.24 ml/min; Glucose 177 mg/dL (74-106); Sodium Level 140 mmol/L (136-145); Troponin-I HS (w/2H Reflex) 9 pg/mL (3.0-54.0)
--- NOTE | 2022-10-01 15:43 | EDS_ITS ---
HPI History of Present Illness Chief Complaint: Chest Pain Informant: patient Onset/Context/Timing Onset: Today Activity at onset: sudden Timing: Intermittent Quality: Positive for - (Racing, skipping) Location: Substernal Worsened By: Nothing Relieved By: Nothing Associated Symptoms: Positive for Dyspnea and Palpitations; Negative for Nausea, Vomiting, Diaphoresis, Cough, Fever, Lightheadedness or Acid Reflux Narrative Narrative: Patient presents with chest pain that began today. Patient states it has been intermittent. Patient states she feels like her heart is racing and skipping beats. Patient states she started Augmentin today. Patient took her first dose that 0500. Patient states her palpitations started at approximately 0800. Patient admits to some shortness of breath with this. Patient denies any nausea or vomiting. Patient denies any cough or fevers. Patient denies any lightheadedness or dizziness. Patient states nothing seems to make her symptoms better nothing makes them worse. CVD Risk Factors: Positive for Hypertension and Diabetes; Negative for Hypercholesterolemia, Family History 1' </=55 or Smoking PE Risk Factors: Positive for Prior DVT or PE; Negative for Recent Travel/Surgery, Recent Immobilization, Cancer or OCP + Smoking + >/=35 [facility] Medical History (Updated 10/01/22 @ 17:[address] Zay Juan, ) Abnormal EKG Asthma Bimalleolar ankle fracture Charcot's joint of left foot Diabetes mellitus, type II Essential hypertension GERD (gastroesophageal reflux disease) History of DVT (deep vein thrombosis) Hyperglycemia due to type 2 diabetes mellitus Hyperlipidemia Hypertension THAIS (obstructive sleep apnea) Palpitations Paroxysmal SVT (supraventricular tachycardia) Premature atrial contractions Premature ventricular contraction Sinus bradycardia Home Medications aspirin 81 mg tablet,delayed release 81 mg PO DAILY [facility] 11/24/17 [History Last Taken 01/19/19 16:00] ramipril 10 mg capsule 10 mg PO BID HEART 01/19/19 [History Last Taken 01/19/19 21:00] cholecalciferol (vitamin D3) 1,250 mcg (50,000 unit) capsule 1,250 mcg PO QWEEK SUPPLEMENT 12/03/19 [History Last Taken Unknown] furosemide 20 mg tablet 20 mg PO DAILY PRN water pill 01/22/21 [History Last Taken Unknown] budesonide-formoterol HFA 160 mcg-4.5 mcg/actuation aerosol inhaler 2 puff inhalation BID ASTHMA 12/21/21 [History Last Taken Unknown] zolpidem 5 mg tablet 2.5 mg PO QHS PRN Insomnia 02/11/22 [History Last Taken Unknown] insulin lispro 100 unit/mL subcutaneous solution 6 unit subcut TIDCM dm 06/22/22 [History Last Taken Unknown] omeprazole magnesium 20 mg tablet,delayed release (Prilosec OTC) 20 mg PO DAILY GERD 06/22/22 [History Last Taken Unknown] albuterol sulfate 90 mcg/actuation aerosol inhaler (Ventolin HFA) 2 puff inhalation 4XD PRN sob #8.5 grams 07/14/22 [Rx Last Taken Unknown] amlodipine 5 mg tablet (Norvasc) 5 mg PO DAILY BLOOD PRESSURE 07/17/22 [History Last Taken Unknown] metoprolol tartrate 25 mg tablet 25 mg PO BID BLOOD PRESSURE 07/17/22 [History Last Taken Unknown] acetaminophen 325 mg tablet (Tylenol) 650 mg PO Q6H PRN PRN Pain 1-10 Or Fever >100.7 #0 tabs 08/02/22 [Rx Last Taken Unknown] amoxicillin 875 mg-potassium clavulanate 125 mg tablet 1 tab PO BID #12 tabs 08/02/22 [Rx Last Taken Unknown] insulin glargine-yfgn 100 unit/mL (3 mL) subcutaneous pen 24 unit (0.24 mL) subcut BID #15 mL 08/02/22 [Rx Last Taken Unknown] insulin lispro 100 unit/mL subcutaneous pen (Humalog KwikPen (U-100) Insulin) See Protocol subcut ACHS #0 mL 08/02/22 [Rx Last Taken Unknown] nutrition tx glu intol,lac-free,soy-fiber 0.06 gram-1.2 kcal/mL liquid (Glucerna 1.2 Will) 120 ml PO TIDCM #0 mL 08/02/22 [Rx Last Taken Unknown] Allergy/AdvReac Type Severity Reaction Status Date / Time pravastatin Allergy Unknown unknown Verified 10/01/22 13:51 rosuvastatin [From Crestor] Allergy Unknown myalgias Verified 10/01/22 13:51 simvastatin Allergy Unknown unknown Verified 10/01/22 13:51 escitalopram Allergy Other Verified 10/01/22 13:51 hydrochlorothiazide Allergy Other Verified 10/01/22 13:51 Emprwbm-FDR-TuK Reductase AdvReac Severe myalgias Verified 10/01/22 13:51 Inhibitor [Kibobcn-Rav-Gtt Reductase Inhibitor] codeine AdvReac Nausea Verified 10/01/22 13:51 naproxen [From Naprosyn] AdvReac Nausea Verified 10/01/22 13:51 Family History Mother Aortic stenosis Presence of permanent cardiac pacemaker Surgical History (Updated 10/01/22 @ 15:[address] Zay Juan DO) History of cholecystectomy History of herniorrhaphy History of tonsillectomy Status post ORIF of fracture of ankle Social History household members: spouse Smoking Status: Former smoker alcohol intake: never substance use type: does not use ROS ROS ED Constitutional Constitutional ED: Denies chills or fever(s) Eyes Eyes: Denies blurry vision or change in vision ENT ENT ED: Denies rhinorrhea or sore throat Cardiovascular Cardiovascular: Reports chest pain, palpitations and racing heartbeat Respiratory/Chest Respiratory/Chest: Reports dyspnea; Denies cough Gastrointestinal Gastrointestinal: Denies abdominal pain, nausea or vomiting Genitourinary Genitourinary ED: Denies dysuria or hematuria Musculoskeletal Musculoskeletal: Denies back pain or neck pain Integumentary Denies abscess or rash Neurologic Neurologic: Denies headache(s) or weakness Allergic/Immunologic Allergic/Immunologic ED: Denies mouth swelling or urticaria EXAM Physical Exam Const Vital Signs: 10/01/22 13:50 10/01/22 14:20 10/01/22 14:36 Temperature 97.5 F L Temperature Source Temporal Pulse Rate 78 Respiratory Rate 16 Respiratory Effort Normal Non-Labored Blood Pressure 159/74 H Blood Pressure Mean 102 Pulse Ox 99 Oxygen Delivery Method Nasal Cannula Room Air Oxygen Flow Rate (L/min) 1 10/01/22 16:38 10/01/22 16:37 Temperature Temperature Source Pulse Rate 75 Respiratory Rate 16 Respiratory Effort Blood Pressure 143/64 H Blood Pressure Mean 90 Pulse Ox 97 Oxygen Delivery Method Oxygen Flow Rate (L/min) Positive well nourished, well developed and obese General Appearance ED: well developed and NAD Nutritional Appearance: obese HEENT normocephalic and atraumatic Eyes PERRL and EOMs intact bilaterally Neck supple and no JVD Chest Wall palpation of chest normal Resp normal respiratory effort and clear to auscultation bilaterally Effort and Inspection: Negative for respiratory distress Cardio regular rate, regular rhythm and no murmurs GI normal to inspection, nondistended, normoactive bowel sounds, soft to palpation, non-tender and non-distended Extremity normal to inspection General Extremety ED: Yes edema General Extremity: edema bilateral lower extremity Details: mild Neuro oriented x3, CN's II-XII intact bilaterally and no sensory deficits noted Sensorium / Orientation: awake and alert Motor Exam: strength 5/5 throughout Psych mental status grossly normal Heart Score History: Slightly/Non-Suspicious ECG: Nonspecific Repolarization Age: >/= 65 years Risk Factors: 1 or 2 Risk Factors Troponin: </= Normal Limit Score: 4 MDM MDM MDM Narrative Medical decision making narrative: Differential diagnosis includes cardiac ischemia, cardiac dysrhythmia, electrolyte abnormality, pneumonia, and medication reaction. EKG will be obtained to assess for cardiac dysrhythmia and cardiac ischemia. Chest x-ray will be obtained to assess for pneumonia and congestive heart failure. CBC will be obtained to assess for leukocytosis and anemia. Basic metabolic profile will be obtained to assess for kidney function and electrolyte abnormality. High- sensitivity troponin will be obtained to assess for cardiac ischemia. 2-hour repeat high-sensitivity troponin will be obtained to assess for ongoing cardiac ischemia. Lab Data Attestation: I reviewed the patient's lab results. Lab results narrative: CBC was reviewed and was within normal limits. Basic metabolic profile was reviewed and was essentially within normal limits. High-sensitivity troponin was reviewed and was normal. Labs: Laboratory Results - last 24 hr 10/01/22 10/01/22 14:54 14:54 WBC 5.7 RBC 4.28 Hgb 12.9 Hct 40.7 MCV 95.1 MCH 30.1 MCHC 31.7 L RDW Std Deviation 46.5 H RDW Coeff of Madalyn 13.3 Plt Count 201 MPV 12.0 Immature Gran % (Auto) 0.000 Neut % (Auto) 71.6 H Lymph % (Auto) 18.8 L Jennings % (Auto) 7.8 Eos % (Auto) 1.4 Baso % (Auto) 0.4 Absolute Neuts (auto) 4.1 Absolute Lymphs (auto) 1.06 Nucleated RBC % 0 Sodium 140 Potassium 4.0 Chloride 106 Carbon Dioxide 28.0 Anion Gap 6 BUN 20 H Creatinine 0.79 Estim Creat Clear Calc 49.24 Est GFR (MDRD) Af Amer 91 Est GFR (MDRD) Non-Af 75 BUN/Creatinine Ratio 25.3 H Glucose 177 H Calcium 9.4 Troponin I High Sens 9 Radiography Chest X-Ray - ED: 1 View, Read by ED Physician, Read by Radiologist and No Acute Disease Diagnostic Testing: Clinical Impression(s) from Imaging Studies Chest X-Ray 10/01/22 14:36 IMPRESSION: No radiographic evidence of acute cardiopulmonary disease. Electronically Signed: Mohsen Ren MD at 15:12 EDT , EKG Initial EKG: Attestation: I personally reviewed and interpreted this EKG as follows: Interpretation: Sinus Rhythm (75) and Non-Specific ST Changes Comments: EKG was obtained. On my independent interpretation, it showed a normal sinus rhythm with a rate of 75. GA interval, QRS interval, and QTc intervals were all normal. Tucker was borderline at -15. There are nonspecific ST-T wave changes. Treatment and Re-Evaluation :: Patient was given aspirin here. Patient is feeling better on reevaluation. On chaperoned exam, the perineum was evaluated. There is a small tender indurated area along the left labia majora. There is no fluctuance. There is no discharge or drainage. There is minimal erythema. I do not feel this requires incision and drainage at this time. Patient is agreeable with this. Patient was instructed to continue warm sits baths. Patient was instructed to cut her Augmentin in half but take them 4 times daily instead of 1 pill twice daily. Patient was instructed to follow-up with her primary care physician in 5 to 7 days. Patient understood and was agreeable with the plan. All questions were answered. Discharge Plan Triage Chief Complaint: Chest Pain ED Provider: Zay Juan Dx/Rx/DC Orders Clinical Impression: Palpitations, Medication side effect, Bartholin cyst Instructions: ED Palpitations Prescriptions: No Action aspirin 81 mg tablet,delayed release (DR/EC) 81 mg PO DAILY cholecalciferol (vitamin D3) 1,250 mcg (50,000 unit) capsule 1,250 mcg PO QWEEK furosemide 20 mg tablet 20 mg PO DAILY PRN (Reason: water pill) insulin lispro 100 unit/mL solution 6 unit subcut TIDCM Protocol: 4. Sliding Scale Insulin High-Med Dosing Condition: 150-199 mg/dl = 2 units Condition: 200-259 mg/dl = 4 units Condition: 260-324 mg/dl = 6 units Condition: 325-374 mg/dl = 8 units Condition: 375-409 mg/dl = 10 units Condition: 410-449 mg/dl = 11 units Condition: Greater than 449 call physician Protocol Text: - Use for Total Daily Dose of Insulin 56-80 units - Patient who are insulin resistant or septic HIGH MEDIUM DOSING ALGORITHM Label Comments: INJECT 3 TO 10 UNITS SUBCUTANEOUSLY BEFORE MEALS DIRECTED budesonide-formoterol 160-4.5 mcg/actuation HFA aerosol inhaler 2 puff inhalation BID omeprazole magnesium [Prilosec OTC] 20 mg tablet,delayed release (DR/EC) 20 mg PO DAILY ramipril 10 MG capsule 10 mg PO BID Label Comments: TAKE 1 CAPSULE BY MOUTH TWICE DAILY zolpidem 5 mg Tablet 2.5 mg PO QHS PRN (Reason: Insomnia) albuterol sulfate [Ventolin HFA] 90 mcg/actuation HFA aerosol inhaler 2 puff INHALATION 4XD PRN (Reason: sob) Qty: 8.5 0RF Rx Instructions: use four times a day for the next seven days, then use every 6 hours as needed for shortness of breath amlodipine [Norvasc] 5 mg tablet 5 mg PO DAILY metoprolol tartrate 25 mg tablet 25 mg PO BID acetaminophen [Tylenol] 325 mg Tablet 650 mg PO Q6H PRN PRN (Reason: Pain 1-10 Or Fever >100.7) Qty: 0 0RF insulin lispro [Humalog KwikPen Insulin] 100 unit/mL Insulin Pen See Protocol subcut ACHS Qty: 0 0RF Protocol: 4. Sliding Scale Insulin High-Med Dosing Condition: 150-199 mg/dl = 2 units Condition: 200-259 mg/dl = 4 units Condition: 260-324 mg/dl = 6 units Condition: 325-374 mg/dl = 8 units Condition: 375-409 mg/dl = 10 units Condition: 410-449 mg/dl = 11 units Condition: Greater than 449 call physician Protocol Text: - Use for Total Daily Dose of Insulin 56-80 units - Patient who are insulin resistant or septic HIGH MEDIUM DOSING ALGORITHM Glucerna 1.2 Will 0.06-1.2 gram-kcal/mL Liquid 120 ml PO TIDCM Qty: 0 0RF amoxicillin-pot clavulanate 875-125 mg tablet 1 tab PO BID Qty: 12 0RF insulin glargine-yfgn 100 unit/mL (3 mL) insulin pen 24 unit subcut BID Qty: 15 0RF Primary Care Provider: Luzma Palencia Referrals: Luzma Palencia MD [Primary Care Provider] - 5-7 Days Disposition Disposition: Home, Self Care
[2022-10-01 16:37] VITALS: PULSE 75; RESP 16; O2SAT 97
[2022-10-01 16:38] VITALS: BP 143/64
[2022-10-01 16:58] LABS: Reflex Troponin-HS? (from REC) Y
== END 2022-10-01 17:12 | disposition home or self-care (01) ==
PROVIDERS: Emergency Provider Emergency Medicine; PCP Internal Medicine; Visit Provider Emergency Medicine
DX: R00.2 Palpitations (principal); E11.9 Type 2 diabetes mellitus without complications; Z79.4 Long term (current) use of insulin; T36.0X5A Adverse effect of penicillins, initial encounter; N75.0 Cyst of Bartholin's gland; I10 Essential (primary) hypertension; G47.33 Obstructive sleep apnea (adult) (pediatric); E66.9 Obesity, unspecified; J45.909 Unspecified asthma, uncomplicated; K21.9 Gastro-esophageal reflux disease without esophagitis; Z86.718 Personal history of other venous thrombosis and embolism; Z79.899 Other long term (current) drug therapy; Z79.82 Long term (current) use of aspirin; Z87.891 Personal history of nicotine dependence
CPT/HCPCS: 71045; 80048; 84484; 85025; 93005; 99285; A4216

== ENCOUNTER 2022-10-11 14:08 | Emergency (ER) | payer MEDICARE, SELFPAY ==
[2022-10-11 14:10] VITALS: BP 167/77; PULSE 77; RESP 18; TEMP 36.4; O2SAT 96
--- NOTE | 2022-10-11 14:55 | EKG12_ITS ---
Test Reason : CP Blood Pressure : / mmHG Vent. Rate : 075 BPM Atrial Rate : 075 BPM P-R Int : 138 ms QRS Dur : 078 ms QT Int : 392 ms P-R-T Axes : 068 017 051 degrees QTc Int : 437 ms Normal sinus rhythm with sinus arrhythmia Normal ECG Confirmed by NAYANA JOSE, KARRI ([id number]), proposal editor MAMIE HENDERSON ([id number]) on 10/13/2022 9:55:07 AM Referred By: COLTON/KAYLEIGH Confirmed By:KARRI KRAUS MD
--- NOTE | 2022-10-11 15:30 | RAD_ITS ---
STUDY: X-RAY CHEST REASON FOR EXAM: Female, 77 years old. Chest pain and palpitations. TECHNIQUE: Single AP portable view of the chest. COMPARISON: Comparison is made with prior study dated October 01, 2022. FINDINGS: Hyperinflation. Mild increased markings at the lung bases suggestive of a mild scarring. There is no demonstrated pleural abnormality. There is mild cardiac enlargement. Normal mediastinum and christie. Normal visualized pulmonary arteries. There is atherosclerotic calcification of the aortic arch with tortuosity. There are diffuse degenerative changes of the visualized thoracic spine. Normal visualized ribs, clavicles, and shoulders. There is no demonstrated abnormality of the visualized soft tissue structures of the upper abdomen. RAD/Chest 1 View (Portable) IMPRESSION: Hyperinflation. Mild increased markings at the lung bases suggestive of scarring. Electronically Signed: Jules Terrell MD at 15:46 EDT ,
[2022-10-11 16:10] VITALS: BMI 50.3
--- NOTE | 2022-10-11 16:11 | ED.VIS.CHEST ---
HPI History of Present Illness Chief Complaint: Palpitations Informant: patient Onset/Context/Timing Onset: Today and Hours (Approximately 3 hours prior to arrival) Activity at onset: sudden Timing: Continuous Quality: Positive for - (Racing) Location: Substernal and Left Parasternal Worsened By: Nothing Relieved By: Nothing Associated Symptoms: Positive for Lightheadedness and Palpitations; Negative for Nausea, Vomiting, Diaphoresis, Dyspnea, Cough, Fever or Acid Reflux Narrative Narrative: Patient presents with palpitations that began today approximately 3 hours prior to arrival. Patient states she is on Augmentin for a Bartholin cyst. Patient was seen here approximately 10 days ago for this. Patient had just started the antibiotic at that time. Patient was told at that time to take half of a tablet 4 times daily instead of 1 tablet twice daily. Patient states she took a half a tablet earlier this morning without any palpitations. Patient states she took the second half of her tablet at approximately 12:45 PM today. Patient states that her palpitations started soon after that. Patient states nothing makes it better nothing makes it worse. Patient admits to some lightheadedness with this. Patient denies any vertigo or near syncopal episodes. Patient denies any nausea or vomiting. Patient denies any shortness of breath or cough. Patient denies any actual pain in her chest. CVD Risk Factors: Positive for Hypertension and Diabetes; Negative for Hypercholesterolemia, Family History 1' </=55 or Smoking PE Risk Factors: Positive for Prior DVT or PE; Negative for Recent Travel/Surgery, Recent Immobilization, Cancer or OCP + Smoking + >/=35 [facility] Medical History Abnormal EKG Asthma Bimalleolar ankle fracture Charcot's joint of left foot Diabetes mellitus, type II Essential hypertension GERD (gastroesophageal reflux disease) History of DVT (deep vein thrombosis) Hyperglycemia due to type 2 diabetes mellitus Hyperlipidemia Hypertension THAIS (obstructive sleep apnea) Palpitations Paroxysmal SVT (supraventricular tachycardia) Premature atrial contractions Premature ventricular contraction Sinus bradycardia Home Medications aspirin 81 mg tablet,delayed release 81 mg PO DAILY [facility] 11/24/17 [History Last Taken 01/19/19 16:00] ramipril 10 mg capsule 10 mg PO BID HEART 01/19/19 [History Last Taken 01/19/19 21:00] cholecalciferol (vitamin D3) 1,250 mcg (50,000 unit) capsule 1,250 mcg PO QWEEK SUPPLEMENT 12/03/19 [History Last Taken Unknown] furosemide 20 mg tablet 20 mg PO DAILY PRN water pill 01/22/21 [History Last Taken Unknown] budesonide-formoterol HFA 160 mcg-4.5 mcg/actuation aerosol inhaler 2 puff inhalation BID ASTHMA 12/21/21 [History Last Taken Unknown] zolpidem 5 mg tablet 2.5 mg PO QHS PRN Insomnia 02/11/22 [History Last Taken Unknown] insulin lispro 100 unit/mL subcutaneous solution 6 unit subcut TIDCM dm 06/22/22 [History Last Taken Unknown] omeprazole magnesium 20 mg tablet,delayed release (Prilosec OTC) 20 mg PO DAILY GERD 06/22/22 [History Last Taken Unknown] albuterol sulfate 90 mcg/actuation aerosol inhaler (Ventolin HFA) 2 puff inhalation 4XD PRN sob #8.5 grams 07/14/22 [Rx Last Taken Unknown] amlodipine 5 mg tablet (Norvasc) 5 mg PO DAILY BLOOD PRESSURE 07/17/22 [History Last Taken Unknown] metoprolol tartrate 25 mg tablet 25 mg PO BID BLOOD PRESSURE 07/17/22 [History Last Taken Unknown] acetaminophen 325 mg tablet (Tylenol) 650 mg PO Q6H PRN PRN Pain 1-10 Or Fever >100.7 #0 tabs 08/02/22 [Rx Last Taken Unknown] amoxicillin 875 mg-potassium clavulanate 125 mg tablet 1 tab PO BID #12 tabs 08/02/22 [Rx Last Taken Unknown] insulin glargine-yfgn 100 unit/mL (3 mL) subcutaneous pen 24 unit (0.24 mL) subcut BID #15 mL 08/02/22 [Rx Last Taken Unknown] insulin lispro 100 unit/mL subcutaneous pen (Humalog KwikPen (U-100) Insulin) See Protocol subcut ACHS #0 mL 08/02/22 [Rx Last Taken Unknown] nutrition tx glu intol,lac-free,soy-fiber 0.06 gram-1.2 kcal/mL liquid (Glucerna 1.2 Will) 120 ml PO TIDCM #0 mL 08/02/22 [Rx Last Taken Unknown] doxycycline monohydrate 100 mg capsule 100 mg PO BID #14 CAPSULES 10/11/22 [Rx Last Taken Unknown] Allergy/AdvReac Type Severity Reaction Status Date / Time pravastatin Allergy Unknown unknown Verified 10/11/22 14:10 rosuvastatin [From Crestor] Allergy Unknown myalgias Verified 10/11/22 14:10 simvastatin Allergy Unknown unknown Verified 10/11/22 14:10 escitalopram Allergy Other Verified 10/11/22 14:10 hydrochlorothiazide Allergy Other Verified 10/11/22 14:10 [id number]-[id number] Reductase AdvReac Severe myalgias Verified 10/11/22 14:10 Inhibitor [Ytrupif-Uaz-Yjd Reductase Inhibitor] amoxicillin [From Augmentin] AdvReac Other Verified 10/11/22 20:18 clavulanic acid AdvReac Other Verified 10/11/22 20:18 [From Augmentin] codeine AdvReac Nausea Verified 10/11/22 14:10 naproxen [From Naprosyn] AdvReac Nausea Verified 10/11/22 14:10 Family History Mother Aortic stenosis Presence of permanent cardiac pacemaker Surgical History History of cholecystectomy History of herniorrhaphy History of tonsillectomy Status post ORIF of fracture of ankle Social History household members: spouse Smoking Status: Former smoker alcohol intake: never substance use type: does not use ROS ROS ED Constitutional Constitutional ED: Denies chills or fever(s) Eyes Eyes: Denies blurry vision or change in vision ENT ENT ED: Denies rhinorrhea or sore throat Cardiovascular Cardiovascular: Reports palpitations; Denies chest pain Respiratory/Chest Respiratory/Chest: Denies cough or dyspnea Gastrointestinal Gastrointestinal: Denies nausea or vomiting Genitourinary Genitourinary ED: Denies dysuria or hematuria Musculoskeletal Musculoskeletal: Denies back pain or neck pain Integumentary Denies abscess or rash Neurologic Neurologic: Reports headache(s); Denies weakness Allergic/Immunologic Allergic/Immunologic ED: Denies mouth swelling or urticaria EXAM Physical Exam Const Vital Signs: 10/11/22 14:10 10/11/22 16:14 10/11/22 16:15 Temperature 97.5 F L Temperature Source Temporal Pulse Rate 77 78 Respiratory Rate 18 15 Respiratory Effort Respiratory Pattern Blood Pressure 167/77 H 155/71 H Blood Pressure Mean 107 99 Pulse Ox 96 98 97 Oxygen Delivery Method Room Air Nasal Cannula Nasal Cannula Oxygen Flow Rate (L/min) 1 1 10/11/22 16:15 10/11/22 18:00 10/11/22 20:00 Temperature Temperature Source Pulse Rate 73 75 Respiratory Rate 11 L 16 Respiratory Effort Normal Non-Labored Respiratory Pattern Normal Blood Pressure 153/59 H 140/76 H Blood Pressure Mean 90 97 Pulse Ox 98 98 Oxygen Delivery Method Nasal Cannula Nasal Cannula Oxygen Flow Rate (L/min) 1 1 Positive well nourished, well developed and obese General Appearance ED: well developed and NAD Nutritional Appearance: obese HEENT Reports moist mucous membranes normocephalic and atraumatic Neck supple and no JVD Resp normal respiratory effort and clear to auscultation bilaterally Cardio regular rate, regular rhythm and no murmurs GI normal to inspection, nondistended, normoactive bowel sounds and non-tender Palpation: soft Extremity normal to inspection General Extremety ED: Negative for edema or tenderness General Extremity: Negative for edema Neuro oriented x3, CN's II-XII intact bilaterally and no sensory deficits noted Sensorium / Orientation: alert Motor Exam: strength 5/5 throughout Psych mental status grossly normal Skin no rashes or lesions noted MDM MDM MDM Narrative Medical decision making narrative: Differential diagnosis includes electrolyte abnormality, medication side effect, cardiac dysrhythmia, cardiac ischemia, and anxiety. EKG will be obtained to assess for cardiac dysrhythmia and cardiac ischemia. Chest x-ray will be obtained to assess for pneumonia and pneumothorax. CBC will be obtained to assess for leukocytosis and anemia. Basic metabolic profile will be obtained to assess for electrolyte abnormality and renal function. High-sensitivity troponin will be obtained to assess for cardiac ischemia. 2-hour repeat high-sensitivity troponin will be obtained to assess for ongoing cardiac ischemia. Lab Data Attestation: I reviewed the patient's lab results. Lab results narrative: CBC was reviewed and was within normal limits. Basic metabolic profile was reviewed and was within normal limits with the exception of an elevated glucose of 202. Initial high-sensitivity troponin was reviewed and was normal at 8. 2-hour repeat high-sensitivity troponin was reviewed and was normal at 10. Labs: Laboratory Results - last 24 hr 10/11/22 10/11/22 10/11/22 16:30 16:30 19:05 WBC 7.2 RBC 4.17 L Hgb 12.8 Hct 38.7 MCV 92.8 MCH 30.7 MCHC 33.1 RDW Std Deviation 43.7 RDW Coeff of Madalyn 12.9 Plt Count 207 MPV 12.1 H Immature Gran % (Auto) 0.100 Neut % (Auto) 78.2 H Lymph % (Auto) 13.6 L [place] % (Auto) 6.8 Eos % (Auto) 1.0 Baso % (Auto) 0.3 Absolute Neuts (auto) 5.7 Absolute Lymphs (auto) 0.98 Nucleated RBC % 0 Sodium 137 Potassium 4.0 Chloride 104 Carbon Dioxide 29.0 Anion Gap 4 L BUN 16 Creatinine 0.78 Estim Creat Clear Calc 49.24 Est GFR (MDRD) Af Amer 93 Est GFR (MDRD) Non-Af 76 BUN/Creatinine Ratio 20.6 H Glucose 202 H Calcium 9.1 Troponin I High Sens 8 10 Radiography Chest X-Ray - ED: 1 View, Read by ED Physician, Read by Radiologist and No Acute Disease Diagnostic Testing: Clinical Impression(s) from Imaging Studies Chest X-Ray 10/11/22 15:30 IMPRESSION: Hyperinflation. Mild increased markings at the lung bases suggestive of scarring. Electronically Signed: Jules Terrell MD at 15:46 EDT Reading Location ID and State: [address] [place] [address] , Service support , Portable 1 view chest x-ray was obtained. On my independent interpretation, lung ramon are clear. There is normal cardiac silhouette. Bony thorax is normal. There is no acute process noted. Radiologist also interpreted the x-ray and agrees. EKG Initial EKG: Attestation: I personally reviewed and interpreted this EKG as follows: Interpretation: Sinus Rhythm (75) and No Acute Injury Pattern Comments: EKG was obtained. On my independent interpretation, it showed a normal sinus rhythm with a rate of 75. AR interval, QRS interval, and QTc intervals were all normal. Mars was normal. There are no acute ST or T wave changes. Prior EKG tracings: available for review Prior: Unchanged (10/01/2022) Treatment and Re-Evaluation :: Patient was advised of her findings. Patient was advised that this most likely medication side effect due to the Augmentin. Patient was instructed to stop taking the Augmentin. Patient was given a dose of Bactrim here. Patient was given a prescription for Bactrim. Patient was instructed to follow-up with her primary care physician in 5 to 7 days. Patient was instructed to continue sitz bath's. Patient was instructed return if worse in any way. Patient understood and was agreeable with the plan. All questions were answered. Discharge Plan Triage Chief Complaint: Palpitations ED Provider: Zay Juan Dx/Rx/DC Orders Clinical Impression: Heart palpitations, Medication side effect Instructions: ED Palpitations Prescriptions: New doxycycline monohydrate 100 mg capsule 100 mg PO BID Qty: 14 0RF No Action aspirin 81 mg tablet,delayed release (DR/EC) 81 mg PO DAILY cholecalciferol (vitamin D3) 1,250 mcg (50,000 unit) capsule 1,250 mcg PO QWEEK furosemide 20 mg tablet 20 mg PO DAILY PRN (Reason: water pill) insulin lispro 100 unit/mL solution 6 unit subcut TIDCM Protocol: 4. Sliding Scale Insulin High-Med Dosing Condition: 150-199 mg/dl = 2 units Condition: 200-259 mg/dl = 4 units Condition: 260-324 mg/dl = 6 units Condition: 325-374 mg/dl = 8 units Condition: 375-409 mg/dl = 10 units Condition: 410-449 mg/dl = 11 units Condition: Greater than 449 call physician Protocol Text: - Use for Total Daily Dose of Insulin 56-80 units - Patient who are insulin resistant or septic HIGH MEDIUM DOSING ALGORITHM Label Comments: INJECT 3 TO 10 UNITS SUBCUTANEOUSLY BEFORE MEALS DIRECTED budesonide-formoterol 160-4.5 mcg/actuation HFA aerosol inhaler 2 puff inhalation BID omeprazole magnesium [Prilosec OTC] 20 mg tablet,delayed release (DR/EC) 20 mg PO DAILY ramipril 10 MG capsule 10 mg PO BID Label Comments: TAKE 1 CAPSULE BY MOUTH TWICE DAILY zolpidem 5 mg Tablet 2.5 mg PO QHS PRN (Reason: Insomnia) albuterol sulfate [Ventolin HFA] 90 mcg/actuation HFA aerosol inhaler 2 puff INHALATION 4XD PRN (Reason: sob) Qty: 8.5 0RF Rx Instructions: use four times a day for the next seven days, then use every 6 hours as needed for shortness of breath amlodipine [Norvasc] 5 mg tablet 5 mg PO DAILY metoprolol tartrate 25 mg tablet 25 mg PO BID acetaminophen [Tylenol] 325 mg Tablet 650 mg PO Q6H PRN PRN (Reason: Pain 1-10 Or Fever >100.7) Qty: 0 0RF insulin lispro [Humalog KwikPen Insulin] 100 unit/mL Insulin Pen See Protocol subcut ACHS Qty: 0 0RF Protocol: 4. Sliding Scale Insulin High-Med Dosing Condition: 150-199 mg/dl = 2 units Condition: 200-259 mg/dl = 4 units Condition: 260-324 mg/dl = 6 units Condition: 325-374 mg/dl = 8 units Condition: 375-409 mg/dl = 10 units Condition: 410-449 mg/dl = 11 units Condition: Greater than 449 call physician Protocol Text: - Use for Total Daily Dose of Insulin 56-80 units - Patient who are insulin resistant or septic HIGH MEDIUM DOSING ALGORITHM Glucerna 1.2 Will 0.06-1.2 gram-kcal/mL Liquid 120 ml PO TIDCM Qty: 0 0RF amoxicillin-pot clavulanate 875-125 mg tablet 1 tab PO BID Qty: 12 0RF insulin glargine-yfgn 100 unit/mL (3 mL) insulin pen 24 unit subcut BID Qty: 15 0RF Primary Care Provider: Luzma Palencia Referrals: Luzma Palencia MD [Primary Care Provider] - 3-5 Days Disposition Disposition: Home, Self Care
[2022-10-11 16:14] VITALS: BP 155/71; PULSE 78; RESP 15; O2SAT 98
[2022-10-11 16:15] VITALS: O2SAT 97
[2022-10-11 16:54] LABS: Absolute Lymphocyte Count 0.98 X10^3/uL (0.83-4.51); Absolute Neutrophil Count 5.7 X10^3/uL (2.0-7.7); Basophil# 0.02 X10^3/uL; Basophil% 0.3 % (0-1); Eosinophil# 0.07 X10^3/uL; Hematocrit 38.7 % (37-47); Hemoglobin 12.8 g/dL (12.0-15.0); Lymphocyte # 0.98 X10^3/ul (0.83-4.51); Lymphocyte % 13.6 % (19-41); Mean Corp Hgb Conc 33.1 g/dL (32-36); Mean Corpuscular Hgb 30.7 pg (27.0-32.0); Mean Corpuscular Volume 92.8 fL (81-99); Mean Platelet Vol. 12.1 fl (6.2-12.0); Monocyte# 0.49 X10^3/uL; Monocyte% 6.8 % (0-10); NRBC Flagged by Analyzer 0 % (0-5); Neutrophil # 5.65 X10^3/uL (2.7-7.7); Neutrophil % 78.2 % (47-70); Platelet Count 207 K/mm3 (150-450); RBC Distribution Width CV 12.9 % (11.6-14.6); RBC Distribution Width SD 43.7 fl (35.1-43.9); Red Blood Count 4.17 M/mm3 (4.2-5.4); White Blood Count 7.2 K/mm3 (4.4-11.0)
[2022-10-11 17:11] LABS: Anion Gap 4 (5-15); BUN 16 mg/dL (7-18); BUN/Creat Ratio 20.6 RATIO (10-20); Calcium,Total 9.1 mg/dL (8.5-10.1); Chloride 104 mmol/L (98-107); Creatinine, Serum 0.78 mg/dL (0.55-1.02); EST Glomerular Filtration Rate 76 mL/min (>60); Est Glom Filt Rate - Afr Amer 93 mL/min (>60); Estimated Creatinine Clearance 49.24 ml/min; Glucose 202 mg/dL (74-106); Sodium Level 137 mmol/L (136-145); Troponin-I HS 8 pg/mL (3.0-54.0)
[2022-10-11 18:00] VITALS: BP 153/59; PULSE 73; RESP 11; O2SAT 98
[2022-10-11 19:47] LABS: Troponin-I HS (w/2H Reflex) 10 pg/mL (3.0-54.0)
[2022-10-11 20:00] VITALS: BP 140/76; PULSE 75; RESP 16; O2SAT 98
--- NOTE | 2022-10-11 20:21 | ED.RN ---
Pt refusing Bactrim antibiotic. Pt states she wants to speak with her primary doctor first before taking any new medications. This RN explained this antibiotic is not in her allergy list, and what to watch out for when having an allergic reaction. Pt still refusing medication at this time. Dr. Juan notified.
[2022-10-11 20:32] VITALS: BP 154/57; PULSE 76; RESP 14; O2SAT 98
== END 2022-10-11 20:39 | disposition home or self-care (01) ==
PROVIDERS: Emergency Provider Emergency Medicine; PCP Internal Medicine; Visit Provider Emergency Medicine
DX: R00.2 Palpitations (principal); Z68.43 Body mass index [BMI] 50.0-59.9, adult; E11.9 Type 2 diabetes mellitus without complications; Z79.4 Long term (current) use of insulin; T36.0X5A Adverse effect of penicillins, initial encounter; E78.5 Hyperlipidemia, unspecified; I10 Essential (primary) hypertension; N75.0 Cyst of Bartholin's gland; E66.9 Obesity, unspecified; Z79.82 Long term (current) use of aspirin; Z79.899 Other long term (current) drug therapy; Z87.891 Personal history of nicotine dependence
CPT/HCPCS: 71045; 80048; 84484; 85025; 93005; 99283; A4216

== ENCOUNTER 2022-11-04 17:58 | Emergency (ER) | payer MEDICARE, SELFPAY ==
[2022-11-04 17:59] VITALS: BP 175/66; PULSE 84; RESP 20; TEMP 36.8; O2SAT 98; BMI 49.6
--- NOTE | 2022-11-04 18:18 | EKG12_ITS ---
Test Reason : CP Blood Pressure : / mmHG Vent. Rate : 078 BPM Atrial Rate : 078 BPM P-R Int : 148 ms QRS Dur : 088 ms QT Int : 392 ms P-R-T Axes : 072 040 066 degrees QTc Int : 446 ms Sinus rhythm with marked sinus arrhythmia Otherwise normal ECG Confirmed by NAYANA JOSE, KARRI ([id number]), subeditor MAMIE HENDERSON ([id number]) on 11/08/2022 12:34:43 PM Referred By: MARLI Confirmed By:KARRI KRAUS MD
[2022-11-04 18:35] VITALS: O2SAT 100
[2022-11-04] MEDS: Aspirin 81 MG TAB.CHEW 324 MG PO (18:35)
--- NOTE | 2022-11-04 18:37 | RAD_ITS ---
STUDY: X-RAY CHEST REASON FOR EXAM: Female, 77 years old. chest pain TECHNIQUE: AP portable COMPARISON: October 11, 2022 FINDINGS: Mild bibasilar chronic interstitial thickening.. There is no demonstrated pleural abnormality. Heart is enlarged.. Normal mediastinum and christie. Normal visualized pulmonary arteries. Mildly calcified aortic arch and descending thoracic aorta. Normal visualized thoracic spine. Normal visualized ribs, clavicles, and shoulders. There is no demonstrated abnormality of the visualized soft tissue structures of the upper abdomen. No significant change since prior exam RAD/Chest 1 View (Portable) IMPRESSION: ASHD and mild chronic bibasilar interstitial thickening. No acute cardiopulmonary pathology Electronically Signed: Jerry Guerra MD at 19:00 EDT ,
--- NOTE | 2022-11-04 18:37 | ED.VIS.CHEST ---
HPI History of Present Illness Chief Complaint: Chest Pain Informant: patient Onset/Context/Timing Onset: Today Narrative Narrative: Patient presents secondary to left upper chest pain. Had a half an hour prior to arrival she states she was standing at the kitchen counter chopping vegetables when she developed a pressure sensation in the left upper chest. She then felt very warm and flushed with nausea. She did develop shortness of breath. She states symptoms are improved at this time but she is not quite back to baseline. [facility] Medical History Abnormal EKG Asthma Bimalleolar ankle fracture Charcot's joint of left foot Diabetes mellitus, type II Essential hypertension GERD (gastroesophageal reflux disease) History of DVT (deep vein thrombosis) Hyperglycemia due to type 2 diabetes mellitus Hyperlipidemia Hypertension THAIS (obstructive sleep apnea) Palpitations Paroxysmal SVT (supraventricular tachycardia) Premature atrial contractions Premature ventricular contraction Sinus bradycardia Home Medications aspirin 81 mg tablet,delayed release 81 mg PO DAILY heart health 11/24/17 [History Last Taken 01/19/19 16:00] ramipril 10 mg capsule 10 mg PO BID HEART 01/19/19 [History Last Taken 01/19/19 21:00] cholecalciferol (vitamin D3) 1,250 mcg (50,000 unit) capsule 1,250 mcg PO QWEEK SUPPLEMENT 12/03/19 [History Last Taken Unknown] furosemide 20 mg tablet 20 mg PO DAILY PRN water pill 01/22/21 [History Last Taken Unknown] budesonide-formoterol HFA 160 mcg-4.5 mcg/actuation aerosol inhaler 2 puff inhalation BID ASTHMA 12/21/21 [History Last Taken Unknown] zolpidem 5 mg tablet 2.5 mg PO QHS PRN Insomnia 02/11/22 [History Last Taken Unknown] insulin lispro 100 unit/mL subcutaneous solution 6 unit subcut TIDCM dm 06/22/22 [History Last Taken Unknown] omeprazole magnesium 20 mg tablet,delayed release (Prilosec OTC) 20 mg PO DAILY GERD 06/22/22 [History Last Taken Unknown] albuterol sulfate 90 mcg/actuation aerosol inhaler (Ventolin HFA) 2 puff inhalation 4XD PRN sob #8.5 grams 07/14/22 [Rx Last Taken Unknown] amlodipine 5 mg tablet (Norvasc) 5 mg PO DAILY BLOOD PRESSURE 07/17/22 [History Last Taken Unknown] metoprolol tartrate 25 mg tablet 25 mg PO BID BLOOD PRESSURE 07/17/22 [History Last Taken Unknown] acetaminophen 325 mg tablet (Tylenol) 650 mg PO Q6H PRN PRN Pain 1-10 Or Fever >100.7 #0 tabs 08/02/22 [Rx Last Taken Unknown] amoxicillin 875 mg-potassium clavulanate 125 mg tablet 1 tab PO BID #12 tabs 08/02/22 [Rx Last Taken Unknown] insulin glargine-yfgn 100 unit/mL (3 mL) subcutaneous pen 24 unit (0.24 mL) subcut BID #15 mL 08/02/22 [Rx Last Taken Unknown] insulin lispro 100 unit/mL subcutaneous pen (Humalog KwikPen (U-100) Insulin) See Protocol subcut ACHS #0 mL 08/02/22 [Rx Last Taken Unknown] nutrition tx glu intol,lac-free,soy-fiber 0.06 gram-1.2 kcal/mL liquid (Glucerna 1.2 Will) 120 ml PO TIDCM #0 mL 08/02/22 [Rx Last Taken Unknown] doxycycline monohydrate 100 mg capsule 100 mg PO BID #14 CAPSULES 10/11/22 [Rx Last Taken Unknown] Allergy/AdvReac Type Severity Reaction Status Date / Time pravastatin Allergy Unknown unknown Verified 11/04/22 18:03 rosuvastatin [From Crestor] Allergy Unknown myalgias Verified 11/04/22 18:03 simvastatin Allergy Unknown unknown Verified 11/04/22 18:03 escitalopram Allergy Other Verified 11/04/22 18:03 hydrochlorothiazide Allergy Other Verified 11/04/22 18:03 Obriiaw-SBX-KxY Reductase AdvReac Severe myalgias Verified 11/04/22 18:03 Inhibitor [Fyhpqtg-Fhf-Bgk Reductase Inhibitor] amoxicillin [From Augmentin] AdvReac Other Verified 11/04/22 18:03 clavulanic acid AdvReac Other Verified 11/04/22 18:03 [From Augmentin] codeine AdvReac Nausea Verified 11/04/22 18:03 naproxen [From Naprosyn] AdvReac Nausea Verified 11/04/22 18:03 Family History Mother Aortic stenosis Presence of permanent cardiac pacemaker Surgical History History of cholecystectomy History of herniorrhaphy History of tonsillectomy Status post ORIF of fracture of ankle Social History household members: spouse Smoking Status: Former smoker alcohol intake: never substance use type: does not use ROS ROS ED Constitutional Constitutional ED: Denies chills or fever(s) Eyes Eyes: Denies change in vision or discharge from eye(s) ENT ENT ED: Denies discharge from eye(s), rhinorrhea or sore throat Cardiovascular Cardiovascular: Reports chest pain; Denies palpitations or racing heartbeat Respiratory/Chest Respiratory/Chest: Reports dyspnea; Denies cough Gastrointestinal Gastrointestinal: Reports nausea; Denies abdominal pain, diarrhea or vomiting Genitourinary Genitourinary ED: Denies difficulty urinating or dysuria Musculoskeletal Musculoskeletal: Denies back pain or extremity pain Integumentary Denies Abrasions or rash Neurologic Neurologic: Reports weakness; Denies headache(s) Psychiatric Psychiatric: Denies anxiety or depression Allergic/Immunologic Allergic/Immunologic ED: Denies lip swelling or urticaria EXAM Physical Exam Const Vital Signs: 11/04/22 17:59 11/04/22 18:04 11/04/22 18:49 Temperature 98.3 F Temperature Source Oral Pulse Rate 84 Respiratory Rate 20 H Respiratory Effort Short of Breath Respiratory Pattern Tachypnea Blood Pressure 175/66 H Blood Pressure Mean 102 Pulse Ox 98 Oxygen Delivery Method Nasal Cannula Room Air Oxygen Flow Rate (L/min) 1 11/04/22 18:35 11/04/22 19:00 11/04/22 20:00 Temperature Temperature Source Pulse Rate 80 76 Respiratory Rate 14 18 Respiratory Effort Respiratory Pattern Blood Pressure 162/65 H 151/61 H Blood Pressure Mean 97 91 Pulse Ox 100 97 98 Oxygen Delivery Method Nasal Cannula Nasal Cannula Nasal Cannula Oxygen Flow Rate (L/min) 1 1 1 11/04/22 21:00 Temperature Temperature Source Pulse Rate 72 Respiratory Rate 12 Respiratory Effort Respiratory Pattern Blood Pressure 147/59 H Blood Pressure Mean 88 Pulse Ox 98 Oxygen Delivery Method Nasal Cannula Oxygen Flow Rate (L/min) 1 Positive well nourished and well developed General Appearance ED: well developed HEENT Reports normocephalic and head/scalp atraumatic Eyes PERRL and EOMs intact bilaterally Neck supple Chest Wall inspection of chest normal and palpation of chest normal Resp normal respiratory effort and clear to auscultation bilaterally Cardio regular rate and regular rhythm GI normal to inspection, nondistended, normoactive bowel sounds Palpation: soft Extremity Extremity Narrative: 2-3+ bilateral lower extremity edema, symmetric. Neuro oriented x3 and no sensory deficits noted Sensorium / Orientation: alert Motor Exam: strength 5/5 throughout Psych mental status grossly normal Skin no rashes or lesions noted Heart Score History: Slightly/Non-Suspicious ECG: Normal Age: >/= 65 years Risk Factors: >/= 3 Risk Factors or History of CAD Troponin: </= Normal Limit Score: 4 MDM MDM MDM Narrative Medical decision making narrative: Patient given aspirin on arrival. Patient placed on kier tender. EKG obtained to evaluate for cardiac arrhythmia/ischemia. Labwork obtained to evaluate for leukocytosis, anemia, and electrolyte derangement. Chest x-ray obtained to evaluate for acute lung pathology, cardiac size, or mediastinal abnormality. Lab Data Attestation: I reviewed the patient's lab results. Labs: Laboratory Results - last 24 hr 11/04/22 11/04/22 11/04/22 18:35 18:35 18:35 WBC 6.4 RBC 4.19 L Hgb 12.6 Hct 38.8 MCV 92.6 MCH 30.1 MCHC 32.5 RDW Std Deviation 42.7 RDW Coeff of Madalyn 12.6 Plt Count 212 MPV 12.5 H Immature Gran % (Auto) 0.200 Neut % (Auto) 71.4 H Lymph % (Auto) 18.9 L Grimes % (Auto) 7.5 Eos % (Auto) 1.7 Baso % (Auto) 0.3 Absolute Neuts (auto) 4.5 Absolute Lymphs (auto) 1.20 Nucleated RBC % 0 D-Dimer Quant (PE/DVT) 0.39 Sodium 138 Potassium 3.6 Chloride 105 Carbon Dioxide 28.0 Anion Gap 5 BUN 19 H Creatinine 0.85 Estim Creat Clear Calc 57.92 Est GFR (MDRD) Af Amer 83 Est GFR (MDRD) Non-Af 69 BUN/Creatinine Ratio 22.3 H Glucose 162 H Calcium 9.5 Troponin I High Sens 9 POC Glucose 11/04/22 11/04/22 20:45 20:57 WBC RBC Hgb Hct MCV MCH MCHC RDW Std Deviation RDW Coeff of Madalyn Plt Count MPV Immature Gran % (Auto) Neut % (Auto) Lymph % (Auto) Grimes % (Auto) Eos % (Auto) Baso % (Auto) Absolute Neuts (auto) Absolute Lymphs (auto) Nucleated RBC % D-Dimer Quant (PE/DVT) Sodium Potassium Chloride Carbon Dioxide Anion Gap BUN Creatinine Estim Creat Clear Calc Est GFR (MDRD) Af Amer Est GFR (MDRD) Non-Af BUN/Creatinine Ratio Glucose Calcium Troponin I High Sens 11 POC Glucose 130 H Radiography Chest X-Ray - ED: 1 View, Read by ED Physician, Chronic Changes and No Infiltrates Diagnostic Testing: Clinical Impression(s) from Imaging Studies Chest X-Ray 11/04/22 18:37 IMPRESSION: ASHD and mild chronic bibasilar interstitial thickening. No acute cardiopulmonary pathology Electronically Signed: Jerry Guerra MD at 19:00 EDT , EKG Initial EKG: Attestation: I personally reviewed and interpreted this EKG as follows: Interpretation: Sinus Rhythm (Sinus at 78 with no acute ischemia.) Differential Diagnosis Chest pain/SOB: pulmonary embolism Reason(s) PE less likely: Positive for D-Dimer negative, not tachycardic and not hypoxic and ACS ACS: Positive for no evidence of ACS based on cardiac biomarkers and EKG without ischemia Treatment and Re-Evaluation :: CBC is unremarkable. Chemistry studies normal. Troponin is normal at 9 with 2-hour repeat normal at 11. D-dimer is normal at 0.39. EKG reveals no evidence of acute ischemia. Portable chest x-ray per my interpretation was chronic changes. No evidence of infiltrate or pneumothorax. Patient has had no significant further episodes while in the emergency room. No cardiac arrhythmias noted on review of monitor strip. Patient be discharged to home. She states this is the third episode that she has had of chest pain in the last couple of months. She has had prior stress test and heart cath that was unremarkable. I did recommend she follow-up with cardiology. Return instructions provided Discharge Plan Triage Chief Complaint: Chest Pain ED Provider: Tierney Francis Dx/Rx/DC Orders Clinical Impression: Chest pain Instructions: ED Chest Pain, Uncertain Cause Prescriptions: No Action aspirin 81 mg tablet,delayed release (DR/EC) 81 mg PO DAILY cholecalciferol (vitamin D3) 1,250 mcg (50,000 unit) capsule 1,250 mcg PO QWEEK furosemide 20 mg tablet 20 mg PO DAILY PRN (Reason: water pill) insulin lispro 100 unit/mL solution 6 unit subcut TIDCM Protocol: 4. Sliding Scale Insulin High-Med Dosing Condition: 150-199 mg/dl = 2 units Condition: 200-259 mg/dl = 4 units Condition: 260-324 mg/dl = 6 units Condition: 325-374 mg/dl = 8 units Condition: 375-409 mg/dl = 10 units Condition: 410-449 mg/dl = 11 units Condition: Greater than 449 call physician Protocol Text: - Use for Total Daily Dose of Insulin 56-80 units - Patient who are insulin resistant or septic HIGH MEDIUM DOSING ALGORITHM Label Comments: INJECT 3 TO 10 UNITS SUBCUTANEOUSLY BEFORE MEALS DIRECTED budesonide-formoterol 160-4.5 mcg/actuation HFA aerosol inhaler 2 puff inhalation BID omeprazole magnesium [Prilosec OTC] 20 mg tablet,delayed release (DR/EC) 20 mg PO DAILY ramipril 10 MG capsule 10 mg PO BID Label Comments: TAKE 1 CAPSULE BY MOUTH TWICE DAILY zolpidem 5 mg Tablet 2.5 mg PO QHS PRN (Reason: Insomnia) albuterol sulfate [Ventolin HFA] 90 mcg/actuation HFA aerosol inhaler 2 puff INHALATION 4XD PRN (Reason: sob) Qty: 8.5 0RF Rx Instructions: use four times a day for the next seven days, then use every 6 hours as needed for shortness of breath amlodipine [Norvasc] 5 mg tablet 5 mg PO DAILY metoprolol tartrate 25 mg tablet 25 mg PO BID acetaminophen [Tylenol] 325 mg Tablet 650 mg PO Q6H PRN PRN (Reason: Pain 1-10 Or Fever >100.7) Qty: 0 0RF insulin lispro [Humalog KwikPen Insulin] 100 unit/mL Insulin Pen See Protocol subcut ACHS Qty: 0 0RF Protocol: 4. Sliding Scale Insulin High-Med Dosing Condition: 150-199 mg/dl = 2 units Condition: 200-259 mg/dl = 4 units Condition: 260-324 mg/dl = 6 units Condition: 325-374 mg/dl = 8 units Condition: 375-409 mg/dl = 10 units Condition: 410-449 mg/dl = 11 units Condition: Greater than 449 call physician Protocol Text: - Use for Total Daily Dose of Insulin 56-80 units - Patient who are insulin resistant or septic HIGH MEDIUM DOSING ALGORITHM Glucerna 1.2 Will 0.06-1.2 gram-kcal/mL Liquid 120 ml PO TIDCM Qty: 0 0RF amoxicillin-pot clavulanate 875-125 mg tablet 1 tab PO BID Qty: 12 0RF insulin glargine-yfgn 100 unit/mL (3 mL) insulin pen 24 unit subcut BID Qty: 15 0RF doxycycline monohydrate 100 mg capsule 100 mg PO BID Qty: 14 0RF Primary Care Provider: Luzma Palencia Referrals: Lenin Michaels MD [Med Staff - Active Staff] - 1-2 Weeks Luzma Palencia MD [Primary Care Provider] - Disposition Disposition: Home, Self Care
[2022-11-04 18:45] LABS: Absolute Neutrophil Count 4.5 X10^3/uL (2.0-7.7); Basophil# 0.02 X10^3/uL; Basophil% 0.3 % (0-1); Eosinophil# 0.11 X10^3/uL; Eosinophils% 1.7 % (0-5); Hematocrit 38.8 % (37-47); Hemoglobin 12.6 g/dL (12.0-15.0); Lymphocyte % 18.9 % (19-41); Mean Corp Hgb Conc 32.5 g/dL (32-36); Mean Corpuscular Hgb 30.1 pg (27.0-32.0); Mean Corpuscular Volume 92.6 fL (81-99); Mean Platelet Vol. 12.5 fl (6.2-12.0); Monocyte# 0.48 X10^3/uL; Monocyte% 7.5 % (0-10); NRBC Flagged by Analyzer 0 % (0-5); Neutrophil # 4.54 X10^3/uL (2.7-7.7); Neutrophil % 71.4 % (47-70); Platelet Count 212 K/mm3 (150-450); RBC Distribution Width CV 12.6 % (11.6-14.6); RBC Distribution Width SD 42.7 fl (35.1-43.9); Red Blood Count 4.19 M/mm3 (4.2-5.4); White Blood Count 6.4 K/mm3 (4.4-11.0)
[2022-11-04 19:00] VITALS: BP 162/65; PULSE 80; RESP 14; O2SAT 97
[2022-11-04 19:07] LABS: Anion Gap 5 (5-15); BUN 19 mg/dL (7-18); BUN/Creat Ratio 22.3 RATIO (10-20); Calcium,Total 9.5 mg/dL (8.5-10.1); Chloride 105 mmol/L (98-107); Creatinine, Serum 0.85 mg/dL (0.55-1.02); EST Glomerular Filtration Rate 69 mL/min (>60); Est Glom Filt Rate - Afr Amer 83 mL/min (>60); Estimated Creatinine Clearance 57.92 ml/min; Glucose 162 mg/dL (74-106); Potassium 3.6 mmol/L (3.5-5.1); Sodium Level 138 mmol/L (136-145); Troponin-I HS (w/2H Reflex) 9 pg/mL (3.0-54.0)
[2022-11-04 19:22] LABS: D-Dimer Quantitative (DVT/PE) 0.39 FEU/ug/m (0.27-0.49)
[2022-11-04 20:00] VITALS: BP 151/61; PULSE 76; RESP 18; O2SAT 98
[2022-11-04 20:40] LABS: Reflex Troponin-HS? (from REC) Y
[2022-11-04 21:00] VITALS: BP 147/59; PULSE 72; RESP 12; O2SAT 98
[2022-11-04 21:15] LABS: Bedside Glucose 130 mg/dL (74-106)
[2022-11-04 21:31] LABS: Troponin-I HS 11 pg/mL (3.0-54.0)
== END 2022-11-04 21:51 | disposition home or self-care (01) ==
PROVIDERS: Emergency Provider Emergency Medicine; PCP Internal Medicine; Visit Provider Emergency Medicine
DX: R07.9 Chest pain, unspecified (principal); G47.33 Obstructive sleep apnea (adult) (pediatric); Z87.891 Personal history of nicotine dependence; Z86.718 Personal history of other venous thrombosis and embolism
CPT/HCPCS: 71045; 80048; 82962; 84484; 85025; 85379; 93005; 99285; A4216

== ENCOUNTER → 2022-12-07 | Outpatient (CLI) | payer MEDICARE, SELFPAY ==
--- NOTE | 2022-12-07 09:39 | ECHOCS_ITS ---
Reason For Study: Chest Pain Procedure This was a 2D Doppler, Color Flow transthoracic echocardiogram. The study was technically difficult. Contrast injection was performed. Exam performed in department. Left Ventricle Normal LV size. Mild concentric left ventricular hypertrophy. Left ventricular systolic function is normal. The estimated ejection fraction is 55 %. No regional wall motion abnormalities noted. Right Ventricle Normal RV size. Normal systolic function. Atria Normal left atrium. Normal right atrium. Mitral Valve Normal mitral valve. Tricuspid Valve Normal tricuspid valve. Aortic Valve Trisinus/trileaflet aortic valve. Pulmonic Valve The pulmonic valve is not well visualized. Great Vessels Normal aortic root. The pulmonary artery is normal size. Normal inferior vena cava. Pericardium/Pleural No pericardial effusion. Medication 22 gauge I.V. with prn adaptor inserted into right arm. Diluted definity 1ml given slow IV push to enhance endocardial definition. Performed a rapid injection of agitated mix of 9 cc saline and 1cc air to assess for atrial septal defect. MMode/2D Measurements & Calculations LVIDd: 5.9 cm IVSd: 1.4 cm LA dimension: 4.0 cm LVIDs: 4.6 cm LVPWd: 1.2 cm FS: 22.0 % LAV(MOD-sp4): 80.7 ml LA A4 area: 26.3 cm2 RA A4 area: 24.2 cm2 Time Measurements MV dec time: 0.14 sec Doppler Measurements & Calculations MV E max matthew: 80.6 cm/sec Lat Peak E' Matthew: 7.4 cm/sec Med Peak E' Matthew: 8.4 cm/sec MV A max matthew: 57.8 cm/sec E/E' lat: 10.9 E/E' med: 9.6 MV E/A: 1.4 MV V2 max: 104.1 cm/sec MV P1/2t max matthew: 104.1 cm/sec Ao V2 max: 127.7 cm/sec MV max P.3 mmHg MV P1/2t: 57.1 msec Ao max P.5 mmHg MV V2 mean: 54.2 cm/sec MV dec slope: 533.6 cm/sec2 Ao V2 mean: 88.5 cm/sec MV mean P.4 mmHg Ao mean P.6 mmHg MV V2 VTI: 38.6 cm MVA(P1/2t): 3.9 cm2 Ao V2 VTI: 32.9 cm AV (velocity ratio): 0.91 LV V1 max: 114.2 cm/sec PA V2 max: 80.9 cm/sec TR max matthew: 170.4 cm/sec LV V1 max P.2 mmHg TR max P.6 mmHg LV V1 mean P.0 mmHg LV V1 mean: 81.5 cm/sec LV V1 VTI: 29.8 cm ECHO/Echo Complete W/ Contrast Interpretation Summary Normal LV size. Mild concentric left ventricular hypertrophy. Left ventricular systolic function is normal. The estimated ejection fraction is 55 %. Contrast injection was performed. Ordering Physician: Areli Estevez Referring Physician: Areli Estevez Performed By: Eduardo Arvizu RCS
== END | disposition home or self-care (01) ==
LOC: CVS 09:38
PROVIDERS: PCP Internal Medicine; Referring Provider Physician Assistant Medical; Visit Provider Physician Assistant Medical
DX: I47.1 Supraventricular tachycardia (principal); I10 Essential (primary) hypertension; E78.5 Hyperlipidemia, unspecified
CPT/HCPCS: 93225; 93226; 93306; Q9957; A4216; C8929

== ENCOUNTER 2023-02-13 18:13 | Emergency (ER) | payer MEDICARE, SELFPAY ==
[2023-02-13 18:16] VITALS: BP 161/70; PULSE 73; RESP 16; TEMP 36.3; O2SAT 99; BMI 49.1
--- NOTE | 2023-02-13 19:15 | EDS_ITS ---
HPI <JANUARY Aguirre - Last Filed: 02/13/23 19:20> History of Present Illness Chief Complaint: Overdose Narrative Narrative: Patient is a 77-year-old female that wears oxygen as needed, patient states she wears it mostly at nighttime. Patient has a cat that is very anxious and is going to the vet tomorrow. She has Neurontin 100 mg capsules for her cat. She puts it in her cats food at nighttime to give it to him in the morning. Patient states that when she opened the capsule a dust from the medicine came up and she inhaled it. She was very concerned secondary to her respiratory issues and she called a friend that told her to go to the emergency department to be checked. Patient denies any shortness of breath, patient denies any chest pain. Patient states that she is anxious and she just wants to be seen by a medical professional. [facility] <JANUARY Aguirre - Last Filed: 02/13/23 19:20> [facility] Medical History Abnormal EKG Asthma Bimalleolar ankle fracture Charcot's joint of left foot Diabetes mellitus, type II Essential hypertension GERD (gastroesophageal reflux disease) History of DVT (deep vein thrombosis) Hyperglycemia due to type 2 diabetes mellitus Hyperlipidemia Hypertension THAIS (obstructive sleep apnea) Palpitations Paroxysmal SVT (supraventricular tachycardia) Premature atrial contractions Premature ventricular contraction Sinus bradycardia Home Medications aspirin 81 mg tablet,delayed release 81 mg PO DAILY heart health 11/24/17 [History Last Taken 01/19/19 16:00] ramipril 10 mg capsule 10 mg PO BID HEART 01/19/19 [History Last Taken 01/19/19 21:00] cholecalciferol (vitamin D3) 1,250 mcg (50,000 unit) capsule 1,250 mcg PO QWEEK SUPPLEMENT 12/03/19 [History Last Taken Unknown] furosemide 20 mg tablet 20 mg PO DAILY PRN water pill 01/22/21 [History Last Taken Unknown] budesonide-formoterol HFA 160 mcg-4.5 mcg/actuation aerosol inhaler 2 puff inhalation BID ASTHMA 12/21/21 [History Last Taken Unknown] zolpidem 5 mg tablet 2.5 mg PO QHS PRN Insomnia 02/11/22 [History Last Taken Unknown] insulin lispro 100 unit/mL subcutaneous solution 6 unit subcut TIDCM dm 06/22/22 [History Last Taken Unknown] omeprazole magnesium 20 mg tablet,delayed release (Prilosec OTC) 20 mg PO DAILY GERD 06/22/22 [History Last Taken Unknown] albuterol sulfate 90 mcg/actuation aerosol inhaler (Ventolin HFA) 2 puff inhalation 4XD PRN sob #8.5 grams 07/14/22 [Rx Last Taken Unknown] amlodipine 5 mg tablet (Norvasc) 5 mg PO DAILY BLOOD PRESSURE 07/17/22 [History Last Taken Unknown] metoprolol tartrate 25 mg tablet 25 mg PO BID BLOOD PRESSURE 07/17/22 [History Last Taken Unknown] acetaminophen 325 mg tablet (Tylenol) 650 mg (2 x 325 mg) PO Q6H PRN PRN Pain 1- 10 Or Fever >100.7 #0 tabs 08/02/22 [Rx Last Taken Unknown] insulin glargine-yfgn 100 unit/mL (3 mL) subcutaneous pen 24 unit (0.24 mL) subcut BID #15 mL 08/02/22 [Rx Last Taken Unknown] insulin lispro 100 unit/mL subcutaneous pen (Humalog KwikPen (U-100) Insulin) See Protocol subcut ACHS #0 mL 08/02/22 [Rx Last Taken Unknown] Allergy/AdvReac Type Severity Reaction Status Date / Time pravastatin Allergy Unknown unknown Verified 02/13/23 18:16 rosuvastatin [From Crestor] Allergy Unknown myalgias Verified 02/13/23 18:16 simvastatin Allergy Unknown unknown Verified 02/13/23 18:16 escitalopram Allergy Other Verified 02/13/23 18:16 hydrochlorothiazide Allergy Other Verified 02/13/23 18:16 Sldxwlf-Hti-Agc Reductase AdvReac Severe myalgias Verified 02/13/23 18:16 Inhibitor amoxicillin [From Augmentin] AdvReac Other Verified 02/13/23 18:16 clavulanic acid AdvReac Other Verified 02/13/23 18:16 [From Augmentin] codeine AdvReac Nausea Verified 02/13/23 18:16 naproxen [From Naprosyn] AdvReac Nausea Verified 02/13/23 18:16 Family History Mother Aortic stenosis Presence of permanent cardiac pacemaker Surgical History History of cholecystectomy History of herniorrhaphy History of tonsillectomy Status post ORIF of fracture of ankle Social History household members: spouse Smoking Status: Former smoker alcohol intake: never substance use type: does not use ROS <JANUARY Aguirre - Last Filed: 02/13/23 19:20> ROS ED ROS Narrative Constitutional: Negative for fever, chills, weight loss, weakness Eyes: Negative for vision loss, vision change, double vision ENT: Negative for any sore throat, ear pain, congestion Cardiovascular: Negative for any chest pain, tightness, palpitations Respiratory: Negative for any cough, sputum production, hemoptysis, dyspnea, dyspnea on exertion, orthopnea. Patient states she accidentally inhaled Neurontin, anxiety Gastrointestinal: Negative for any abdominal pain, nausea, vomiting, diarrhea, constipation, blood in stool, blood in vomit : Negative for any urinary frequency, dysuria, retention, blood in urine Muscle skeletal: Negative for any muscle joint pain, stiffness, myalgias, arthralgias, neck pain, back pain Neurological: Negative for any headache, syncope, numbness or tingling, dizziness Skin: Negative for any rashes, lumps, itching, abrasions, lacerations Psychiatric: Negative for any depression, anxiety, stress, suicidal ideation, homicidal ideation Hematologic: Negative for any easy bruising, excessive bruising, easy bleeding Allergies: Negative for any eczema, hives, rash EXAM <JANUARY Aguirre - Last Filed: 02/13/23 19:20> Physical Exam Narrative Exam Narrative: Vital signs reviewed. HEET: Head normocephalic atraumatic, TMs clear bilaterally. Posterior pharynx is clear, moist mucous membranes. Nares clear bilaterally. Neck: Supple with no lymphadenopathy or tenderness. No signs of meningismus, negative jolt sign. Cardiac: Regular rate and rhythm no murmurs gallops or rubs, equal peripheral pulses bilaterally. Respiratory: Lungs clear to auscultation bilaterally. No chest tenderness. Abdomen: Soft, nontender, nondistended. No abdominal bruit or pulsatile masses. No hepatosplenomegaly Extremities: No peripheral edema, no signs of gross trauma or deformity. Active full range of motion of all extremities. Neuro: Cranial nerves II through XII intact, no focal neurological deficits. Skin: Clean dry and intact with no rash, purpura, petechiae, vesicles or pustules. Backs/flank: No CVA tenderness, no midline spinal tenderness, no deformity. Psych: Normal mood and affect. No SI, HI or acute psychosis. Const Vital Signs: 02/13/23 18:16 02/13/23 18:15 02/13/23 19:20 Temperature 97.3 F L 97.8 F Temperature Source Temporal Pulse Rate 73 67 Respiratory Rate 16 14 Respiratory Effort Normal Respiratory Depth Normal Respiratory Pattern Normal Blood Pressure 161/70 H 145/79 H Blood Pressure Mean 100 Pulse Ox 99 99 Oxygen Delivery Method Room Air Room Air Positive well nourished and well developed General Appearance ED: well developed <Dr. Zay Juan, - Last Filed: 02/13/23 19:43> Physical Exam Const Vital Signs: 02/13/23 18:16 02/13/23 18:15 02/13/23 19:20 Temperature 97.3 F L 97.8 F Temperature Source Temporal Pulse Rate 73 67 Respiratory Rate 16 14 Respiratory Effort Normal Respiratory Depth Normal Respiratory Pattern Normal Blood Pressure 161/70 H 145/79 H Blood Pressure Mean 100 Pulse Ox 99 99 Oxygen Delivery Method Room Air Room Air MDM <JANUARY Aguirre - Last Filed: 02/13/23 19:20> [facility] Treatment and Re-Evaluation :: Patient appears generally well, patient appears nontoxic, vital signs are stable. Patient presents to the emergency department for accidentally inhaling Neurontin while trying to break a capsule for her cat. Patient states she got minimal of the medication however she did inhale it so she wanted to get checked out. Patient's visit examination was grossly unremarkable. Patient's vital signs were unremarkable. No evidence of stridor, no evidence of red flag signs. Patient will be discharged home, she instructed to return for any worsening symptoms <Dr. Zay Juan, DO - Last Filed: 02/13/23 19:43> [facility] Narrative Medical decision making narrative: I have personally performed a face to face assessment of the patient and have reviewed the ABIMBOLA Note. I performed a substantive portion of the visit including all aspects of the following. My dumont findings include: History: Patient presents with accidental ingestion of gabapentin. Patient states she was opening a capsule of gabapentin to look in her cats food. Patient states that her cat has been prescribed gabapentin to be taken [facility]. Patient states that when she was opening the capsule, some of the gabapentin went into her face and she accidentally inhaled some of it. The gabapentin bottle was 100 mg capsules. Patient denies any chest pain or shortness of breath. Patient denies any nausea or vomiting. Patient denies any other symptoms. Exam: Vital signs are stable. Patient is afebrile. Patient is in no acute distress. Oral mucosa is pink and moist. Neck is supple. Trachea is midline. There is no JVD. Heart was regular rate and rhythm. Lungs are clear and equal bilaterally. Abdomen is soft. Bowel sounds are normal. There is no tenderness. Cranial nerves II through XII are intact. There are no focal motor or sensory deficits noted. Medical Decision Making: Patient was observed here in the emergency department. Patient is feeling better on reevaluation. Patient was advised that most likely inhaled only a very low dose of gabapentin. Patient was advised that even if she ingested the entire 100 mg of gabapentin, it would not cause any toxic effects. Patient was instructed to drink plenty of fluids. Patient was instructed to follow-up with her primary care physician in 5 to 7 days. Patient understood and was agreeable with the plan. All questions were answered. Discharge Plan Triage Chief Complaint: Overdose ED Midlevel Provider: Chris Dorsey ED Provider: Zay Juan Dx/Rx/DC Orders Clinical Impression: Ingestion of substance Instructions: Lung Disease Chronic Exercise Prescriptions: No Action aspirin 81 mg tablet,delayed release (DR/EC) 81 mg PO DAILY cholecalciferol (vitamin D3) 1,250 mcg (50,000 unit) capsule 1,250 mcg PO QWEEK furosemide 20 mg tablet 20 mg PO DAILY PRN (Reason: water pill) insulin lispro 100 unit/mL solution 6 unit subcut TIDCM Protocol: 4. Sliding Scale Insulin High-Med Dosing Condition: 150-199 mg/dl = 2 units Condition: 200-259 mg/dl = 4 units Condition: 260-324 mg/dl = 6 units Condition: 325-374 mg/dl = 8 units Condition: 375-409 mg/dl = 10 units Condition: 410-449 mg/dl = 11 units Condition: Greater than 449 call physician Protocol Text: - Use for Total Daily Dose of Insulin 56-80 units - Patient who are insulin resistant or septic HIGH MEDIUM DOSING ALGORITHM Patient Comments: INJECT 3 TO 10 UNITS SUBCUTANEOUSLY BEFORE MEALS DIRECTED budesonide-formoterol 160-4.5 mcg/actuation HFA aerosol inhaler 2 puff inhalation BID omeprazole magnesium [Prilosec OTC] 20 mg tablet,delayed release (DR/EC) 20 mg PO DAILY ramipril 10 MG capsule 10 mg PO BID Patient Comments: TAKE 1 CAPSULE BY MOUTH TWICE DAILY zolpidem 5 mg Tablet 2.5 mg PO QHS PRN (Reason: Insomnia) albuterol sulfate [Ventolin HFA] 90 mcg/actuation HFA aerosol inhaler 2 puff INHALATION 4XD PRN (Reason: sob) Qty: 8.5 0RF Rx Instructions: use four times a day for the next seven days, then use every 6 hours as needed for shortness of breath amlodipine [Norvasc] 5 mg tablet 5 mg PO DAILY metoprolol tartrate 25 mg tablet 25 mg PO BID acetaminophen [Tylenol] 325 mg Tablet 650 mg PO Q6H PRN PRN (Reason: Pain 1-10 Or Fever >100.7) Qty: 0 0RF insulin lispro [Humalog KwikPen Insulin] 100 unit/mL Insulin Pen See Protocol subcut ACHS Qty: 0 0RF Protocol: 4. Sliding Scale Insulin High-Med Dosing Condition: 150-199 mg/dl = 2 units Condition: 200-259 mg/dl = 4 units Condition: 260-324 mg/dl = 6 units Condition: 325-374 mg/dl = 8 units Condition: 375-409 mg/dl = 10 units Condition: 410-449 mg/dl = 11 units Condition: Greater than 449 call physician Protocol Text: - Use for Total Daily Dose of Insulin 56-80 units - Patient who are insulin resistant or septic HIGH MEDIUM DOSING ALGORITHM insulin glargine-yfgn 100 unit/mL (3 mL) insulin pen 24 unit subcut BID Qty: 15 0RF Primary Care Provider: Luzma Palencia Referrals: Luzma Palencia MD [Primary Care Provider] - Activity Restrictions/Additional Instructions: Please follow-up outpatient Disposition Disposition: Home, Self Care Discharge Date/Time: 02/13/23 19:27
[2023-02-13 19:20] VITALS: BP 145/79; PULSE 67; RESP 14; TEMP 36.6; O2SAT 99
== END 2023-02-13 19:27 | disposition home or self-care (01) ==
PROVIDERS: Emergency Provider Emergency Medicine; PCP Internal Medicine; Visit Provider Emergency Medicine
DX: T65.94XA Toxic effect of unspecified substance, undetermined, initial encounter (principal); G47.33 Obstructive sleep apnea (adult) (pediatric); Z87.891 Personal history of nicotine dependence; Z99.81 Dependence on supplemental oxygen; Z86.718 Personal history of other venous thrombosis and embolism
CPT/HCPCS: 99282

== ENCOUNTER → 2023-03-22 | Outpatient (CLI) | payer MEDICARE, SELFPAY ==
--- NOTE | 2023-03-22 10:33 | BI_ITS ---
MAMMOGRAPHY - BILATERAL SCREENING REASON FOR EXAM: Female, 77 years old. Routine annual screening examination. PERTINENT HISTORY: Grandmother with breast cancer. TECHNIQUE: Digital bilateral breast minal (3D mammographic acquisition) in the CC and MLO projections. 2-D mediolateral oblique (MLO) and craniocaudad (CC) views of both breasts were obtained. CAD: Full Field Digital Mammography with Computer Added Detection was performed. COMPARISON: Comparison is made with prior study dated March 10, 2022 and March 09, 2021. FINDINGS: Breast Composition: There are scattered areas of fibroglandular density. There are no dominant masses or suspicious calcifications. Stable small benign-appearing bilateral axillary lymph nodes. No other significant abnormalities are identified. There has been no significant change since the prior study. BI/SCRN MAMM (CAD)W/MINAL BILAT IMPRESSION: Stable bilateral screening mammogram. Yearly follow-up mammogram recommended. (A) ASSESSMENT CATEGORY: BIRADS Category 2: Benign. A letter regarding these results will be sent to the patient by the facility within 30 days. Approximately 10% of breast cancers are not detected by mammography. A normal mammogram should not delay biopsy of a clinically suspicious abnormality. [id number] Electronically Signed: Jules Terrell MD at 12:49 EDT ,
== END | disposition home or self-care (01) ==
LOC: OPBI 10:31
PROVIDERS: PCP Internal Medicine; Referring Provider Internal Medicine; Visit Provider Internal Medicine
DX: Z12.31 Encounter for screening mammogram for malignant neoplasm of breast (principal)
CPT/HCPCS: 77063; 77067

== ENCOUNTER 2023-05-28 18:17 | Emergency (ER) | payer MEDICARE, SELFPAY ==
[2023-05-28 18:17] VITALS: BP 154/70; PULSE 83; RESP 17; O2SAT 99
[2023-05-28 18:19] VITALS: BP 173/74; PULSE 70; RESP 18; TEMP 35.8; O2SAT 97
[2023-05-28 18:21] VITALS: BMI 50.6
--- NOTE | 2023-05-28 18:51 | EKG12_ITS ---
Test Reason : PALPITATIONS Blood Pressure : / mmHG Vent. Rate : 070 BPM Atrial Rate : 070 BPM P-R Int : 134 ms QRS Dur : 078 ms QT Int : 410 ms P-R-T Axes : 071 041 058 degrees QTc Int : 442 ms Sinus rhythm with Premature supraventricular complexes and with occasional Premature ventricular comp lexes Otherwise normal ECG Confirmed by NAYANA JOSE, KARRI ([id number]), editor in chief MAMIE HENDERSON ([id number]) on 06/08/2023 9:54:00 AM Referred By: JOHN Confirmed By:KARRI KRAUS MD
--- NOTE | 2023-05-28 19:12 | EDS_ITS ---
HPI History of Present Illness Chief Complaint: Palpitations Informant: patient Narrative Narrative: Patient presents with palpitations. Patient has a history of SVT in the past. She used to be on Cardizem but has not been on it for a long time. She does take all to today. She did take it this morning. She was due for it this evening and she took it right after she had the event that she came in for. Patient was doing dishes. She states she suddenly felt just warm. She did not get diaphoretic. She felt a thump in her chest like it was an irregular or heavy beat. Then she felt some short periods where her heart rate seemed to be racing. And then it went away. She did not pass out. Was not syncopal or presyncopal. She never had chest pain with this. It did scare her. She states she had a couple other episodes where she felt 2 or 3 fast or irregular beats but now she feels normal. She cannot think of anything different that she did today that is different than normal. She states she did break up her insulin into more smaller doses than normal but she has done that several times before without problems. [facility] Medical History Abnormal EKG Asthma Bimalleolar ankle fracture Charcot's joint of left foot Diabetes mellitus, type II Essential hypertension GERD (gastroesophageal reflux disease) History of DVT (deep vein thrombosis) Hyperglycemia due to type 2 diabetes mellitus Hyperlipidemia Hypertension THAIS (obstructive sleep apnea) Palpitations Paroxysmal SVT (supraventricular tachycardia) Premature atrial contractions Premature ventricular contraction Sinus bradycardia Home Medications aspirin 81 mg tablet,delayed release 81 mg PO DAILY heart [facility] 11/24/17 [History Last Taken 01/19/19 16:00] ramipril 10 mg capsule 10 mg PO BID HEART 01/19/19 [History Last Taken 01/19/19 21:00] cholecalciferol (vitamin D3) 1,250 mcg (50,000 unit) capsule 1,250 mcg PO QWEEK SUPPLEMENT 12/03/19 [History Last Taken Unknown] furosemide 20 mg tablet 20 mg PO DAILY PRN water pill 01/22/21 [History Last Taken Unknown] budesonide-formoterol HFA 160 mcg-4.5 mcg/actuation aerosol inhaler 2 puff inhalation BID ASTHMA 12/21/21 [History Last Taken Unknown] zolpidem 5 mg tablet 2.5 mg PO QHS PRN Insomnia 02/11/22 [History Last Taken Unknown] insulin lispro 100 unit/mL subcutaneous solution 6 unit subcut TIDCM dm 06/22/22 [History Last Taken Unknown] omeprazole magnesium 20 mg tablet,delayed release (Prilosec OTC) 20 mg PO DAILY GERD 06/22/22 [History Last Taken Unknown] albuterol sulfate 90 mcg/actuation aerosol inhaler (Ventolin HFA) 2 puff inhalation 4XD PRN sob #8.5 grams 07/14/22 [Rx Last Taken Unknown] amlodipine 5 mg tablet (Norvasc) 5 mg PO DAILY BLOOD PRESSURE 07/17/22 [History Last Taken Unknown] metoprolol tartrate 25 mg tablet 25 mg PO BID BLOOD PRESSURE 07/17/22 [History Last Taken Unknown] acetaminophen 325 mg tablet (Tylenol) 650 mg (2 x 325 mg) PO Q6H PRN PRN Pain 1- 10 Or Fever >100.7 #0 tabs 08/02/22 [Rx Last Taken Unknown] insulin glargine-yfgn 100 unit/mL (3 mL) subcutaneous pen 24 unit (0.24 mL) subcut BID #15 mL 08/02/22 [Rx Last Taken Unknown] insulin lispro 100 unit/mL subcutaneous pen (Humalog KwikPen (U-100) Insulin) See Protocol subcut ACHS #0 mL 08/02/22 [Rx Last Taken Unknown] Allergy/AdvReac Type Severity Reaction Status Date / Time hydromorphone Allergy Severe Anaphylaxis Verified 05/28/23 19:33 tramadol Allergy Severe Anaphylaxis Verified 05/28/23 19:33 amiodarone Allergy Intermediate Swelling Verified 05/28/23 19:33 Cavalier And Derivatives Allergy Intermediate Hives Verified 05/28/23 19:33 morphine Allergy Intermediate confusion Verified 05/28/23 19:33 moxifloxacin Allergy Intermediate Shortness Verified 05/28/23 19:33 of breath nabumetone Allergy Intermediate damaged Verified 05/28/23 19:33 kidney penicillin G Allergy Intermediate TURNS BLUE Verified 05/28/23 19:33 propoxyphene Allergy Intermediate PT UNSURE Verified 05/28/23 19:33 OF REACTION acetaminophen [From [place]] Allergy Mild dystonia Verified 05/28/23 19:33 amlodipine Allergy Mild Abd Verified 05/28/23 19:33 cramps/diarrhea ascorbic acid Allergy Mild Itching Verified 05/28/23 19:33 [From [place] (ascorbate sodium)] desloratadine Allergy Mild headache Verified 05/28/23 19:33 glutamine Allergy Mild Itching Verified 05/28/23 19:33 [From Airborne (ascorbate sodium)] herbal complex no.124 Allergy Mild Itching Verified 05/28/23 19:33 [From Airborne (ascorbate sodium)] hydrocodone [From [place]] Allergy Mild dystonia Verified 05/28/23 19:33 lysine HCl Allergy Mild Itching Verified 05/28/23 19:33 [From [place] (ascorbate sodium)] multivitamin with minerals Allergy Mild Itching Verified 05/28/23 19:33 [From Airborne (ascorbate sodium)] pravastatin Allergy Unknown unknown Verified 05/28/23 18:19 rosuvastatin [From Crestor] Allergy Unknown myalgias Verified 05/28/23 18:19 simvastatin Allergy Unknown unknown Verified 05/28/23 18:19 escitalopram Allergy Other Verified 05/28/23 18:19 hydrochlorothiazide Allergy Other Verified 05/28/23 18:19 [id number] Reductase AdvReac Severe myalgias Verified 05/28/23 18:19 Inhibitor [Zmjavdz-Kvm-Rbz Reductase Inhibitor] amoxicillin [From Augmentin] AdvReac Other Verified 05/28/23 18:19 clavulanic acid AdvReac Other Verified 05/28/23 18:19 [From Augmentin] codeine AdvReac Nausea Verified 05/28/23 18:19 naproxen [From Naprosyn] AdvReac Nausea Verified 05/28/23 18:19 Family History Mother Aortic stenosis Presence of permanent cardiac pacemaker Surgical History History of cholecystectomy History of herniorrhaphy History of tonsillectomy Status post ORIF of fracture of ankle Social History household members: spouse Smoking Status: Former smoker alcohol intake: never substance use type: does not use caffeine: Yes Type: coffee Number of servings: 3 ROS ROS ED ROS Narrative A complete review of systems was performed and is negative except as documented in the history of present illness. Some specific details below. Constitutional: No recent fevers or chills. No recent malaise. She was feeling fine before the event. She feels fine now except she is concerned about the event. EYE: No discharge, visual complaints, or pain. ENT: No difficulty swallowing. No swelling. No pain. No reflux symptoms. No change in eating or appetite. No pain with swallowing or GERD symptoms CV: See history of present illness. Respiratory: Not short of breath or coughing. No hemoptysis. GI: No abdominal pain. No nausea vomiting diarrhea. No blood in stool. : No frequency dysuria or hematuria. Musculoskeletal: No recent trauma. No pains. No swelling. Skin: No rash. Nondiaphoretic. Neuro: No weakness or numbness. Endocrine: No polyuria or polydipsia. EXAM Physical Exam Narrative Exam Narrative: CONSTITUTIONAL: Patient is nontoxic in appearance. The patient looks comfort able. Work of breathing looks normal. HEENT: No notable trauma. Mucous membranes moist. EYES: No conjunctival injection. No pallor. NECK:No JVD. No stridor. CARDIOVASCULAR: Regular rate. Regular rhythm. No notable murmur. No JVD. On the monitor, she is in normal sinus rhythm. She has a rare PVC and an occasional PAC. But she does not appear to feel these. These do not bother her while I am in the room. RESPIRATORY: No respiratory distress. Breathing is unlabored. No wheezes. No rhonchi. No rales. No pain with a deep breath. No chest wall tenderness. GASTROINTESTINAL: Not distended. Bowel sounds are normal. No tenderness. GENITOURINARY: No tenderness over the bladder. No CVA tenderness. MUSCULOSKELETAL: Atraumatic. She does have splints on her lower extremities. These are chronic NEUROLOGICAL: Patient is alert and appropriate. No focal deficit noted. SKIN: No noted rashes. No diaphoresis. PSYCHIATRIC: Patient is calm. Mood is appropriate. Const Vital Signs: 05/28/23 18:19 05/28/23 18:17 05/28/23 19:02 Temperature 96.5 F L Temperature Source Temporal Pulse Rate 70 83 Respiratory Rate 18 17 Respiratory Effort Normal Blood Pressure 173/74 H 154/70 H Blood Pressure Mean 107 98 Pulse Ox 97 99 Oxygen Delivery Method Room Air Room Air 05/28/23 19:17 05/28/23 20:17 05/28/23 21:05 Temperature Temperature Source Pulse Rate 58 L 57 L 63 Respiratory Rate 16 14 18 Respiratory Effort Blood Pressure 139/63 H 141/56 H 140/65 H Blood Pressure Mean 88 84 90 Pulse Ox 99 99 93 Oxygen Delivery Method Room Air Room Air MDM MDM MDM Narrative Medical decision making narrative: My independent interpretation of the patient's single view chest x-ray shows no acute changes. There may be a hint of atelectasis at the right base but this could be body habitus also. Final reading shows nonacute portable x-ray examination of the chest. No Patient's CBC is overall normal. Patient's electrolytes show mild elevation in her creatinine over baseline. Slightly high BUN to creatinine ratio. She will be given a little bit of IV fluids. Glucose is minimally up at 170. Troponin is negative at 8. We will repeat her troponin since her symptoms occurred only about 1 hour before arrival. Repeat troponin is 9. Patient has not had further symptoms here. I think she is safe and appropriate to go home. We did talk with her about her sugar slightly up. She is comfortable managing this as an outpatient. Lab Data Attestation: I reviewed the patient's lab results. Labs: Laboratory Results - last 24 hr 05/28/23 05/28/23 18:58 20:40 WBC 6.5 RBC 4.29 Hgb 12.7 Hct 39.0 MCV 90.9 MCH 29.6 MCHC 32.6 RDW Std Deviation 41.7 RDW Coeff of Madalyn 12.9 Plt Count 198 MPV 11.6 Immature Gran % (Auto) 0.000 Neut % (Auto) 72.7 H Lymph % (Auto) 15.4 L [place] % (Auto) 7.0 Eos % (Auto) 4.4 Baso % (Auto) 0.5 Absolute Neuts (auto) 4.8 Absolute Lymphs (auto) 1.01 Nucleated RBC % 0 Sodium 138 Potassium 4.3 Chloride 106 Carbon Dioxide 31.0 Anion Gap 1 L BUN 23 H Creatinine 1.12 H Est GFR (MDRD) Af Amer 61 Est GFR (MDRD) Non-Af 50 L BUN/Creatinine Ratio 20.5 H Glucose 170 H Calcium 8.8 Troponin I High Sens 8 9 POC Glucose 168 H Radiography Diagnostic Testing: Clinical Impression(s) from Imaging Studies Chest X-Ray 05/28/23 19:25 IMPRESSION: Nonacute portable x-ray examination of the chest. Electronically Signed: Ezequiel Franks MD ([place]) at 19:40 EST , EKG Initial EKG: Comments: My independent interpretation of the patient's EKG shows sinus rhythm with occasional PVCs and occasional PACs with compensatory pause. OH interval, QRS duration and QTc are normal. Discharge Plan Triage Chief Complaint: Palpitations ED Provider: Jesus Kessler Dx/Rx/DC Orders Clinical Impression: Heart palpitations, Dehydration, mild, Hx of supraventricular tachycardia Instructions: ED Palpitations Prescriptions: No Action aspirin 81 mg tablet,delayed release (DR/EC) 81 mg PO DAILY cholecalciferol (vitamin D3) 1,250 mcg (50,000 unit) capsule 1,250 mcg PO QWEEK furosemide 20 mg tablet 20 mg PO DAILY PRN (Reason: water pill) insulin lispro 100 unit/mL solution 6 unit subcut TIDCM Protocol: 4. Sliding Scale Insulin High-Med Dosing Condition: 150-199 mg/dl = 2 units Condition: 200-259 mg/dl = 4 units Condition: 260-324 mg/dl = 6 units Condition: 325-374 mg/dl = 8 units Condition: 375-409 mg/dl = 10 units Condition: 410-449 mg/dl = 11 units Condition: Greater than 449 call physician Protocol Text: - Use for Total Daily Dose of Insulin 56-80 units - Patient who are insulin resistant or septic HIGH MEDIUM DOSING ALGORITHM Patient Comments: INJECT 3 TO 10 UNITS SUBCUTANEOUSLY BEFORE MEALS DIRECTED budesonide-formoterol 160-4.5 mcg/actuation HFA aerosol inhaler 2 puff inhalation BID omeprazole magnesium [Prilosec OTC] 20 mg tablet,delayed release (DR/EC) 20 mg PO DAILY ramipril 10 MG capsule 10 mg PO BID Patient Comments: TAKE 1 CAPSULE BY MOUTH TWICE DAILY zolpidem 5 mg Tablet 2.5 mg PO QHS PRN (Reason: Insomnia) albuterol sulfate [Ventolin HFA] 90 mcg/actuation HFA aerosol inhaler 2 puff INHALATION 4XD PRN (Reason: sob) Qty: 8.5 0RF Rx Instructions: use four times a day for the next seven days, then use every 6 hours as needed for shortness of breath amlodipine [Norvasc] 5 mg tablet 5 mg PO DAILY metoprolol tartrate 25 mg tablet 25 mg PO BID acetaminophen [Tylenol] 325 mg Tablet 650 mg PO Q6H PRN PRN (Reason: Pain 1-10 Or Fever >100.7) Qty: 0 0RF insulin lispro [Humalog KwikPen Insulin] 100 unit/mL Insulin Pen See Protocol subcut ACHS Qty: 0 0RF Protocol: 4. Sliding Scale Insulin High-Med Dosing Condition: 150-199 mg/dl = 2 units Condition: 200-259 mg/dl = 4 units Condition: 260-324 mg/dl = 6 units Condition: 325-374 mg/dl = 8 units Condition: 375-409 mg/dl = 10 units Condition: 410-449 mg/dl = 11 units Condition: Greater than 449 call physician Protocol Text: - Use for Total Daily Dose of Insulin 56-80 units - Patient who are insulin resistant or septic HIGH MEDIUM DOSING ALGORITHM insulin glargine-yfgn 100 unit/mL (3 mL) insulin pen 24 unit subcut BID Qty: 15 0RF Primary Care Provider: Luzma Palencia Referrals: Luzma Palencia MD [Primary Care Provider] - 3-5 Days if not improving Disposition Disposition: Home, Self Care
[2023-05-28 19:14] LABS: Absolute Lymphocyte Count 1.01 X10^3/uL (0.83-4.51); Absolute Neutrophil Count 4.8 X10^3/uL (2.0-7.7); Basophil# 0.03 X10^3/uL; Basophil% 0.5 % (0-1); Eosinophil# 0.29 X10^3/uL; Eosinophils% 4.4 % (0-5); Hemoglobin 12.7 g/dL (12.0-15.0); Lymphocyte # 1.01 X10^3/ul (0.83-4.51); Lymphocyte % 15.4 % (19-41); Mean Corp Hgb Conc 32.6 g/dL (32-36); Mean Corpuscular Hgb 29.6 pg (27.0-32.0); Mean Corpuscular Volume 90.9 fL (81-99); Mean Platelet Vol. 11.6 fl (6.2-12.0); Monocyte# 0.46 X10^3/uL; NRBC Flagged by Analyzer 0 % (0-5); Neutrophil # 4.75 X10^3/uL (2.7-7.7); Neutrophil % 72.7 % (47-70); Platelet Count 198 K/mm3 (150-450); RBC Distribution Width CV 12.9 % (11.6-14.6); RBC Distribution Width SD 41.7 fl (35.1-43.9); Red Blood Count 4.29 M/mm3 (4.2-5.4); White Blood Count 6.5 K/mm3 (4.4-11.0)
[2023-05-28 19:17] VITALS: BP 139/63; PULSE 58; RESP 16; O2SAT 99
--- NOTE | 2023-05-28 19:25 | RAD_ITS ---
STUDY: X-RAY CHEST REASON FOR EXAM: Female, 77 years old. CP TECHNIQUE: AP COMPARISON: None. FINDINGS: The lungs are clear and expanded. There is no demonstrated pleural abnormality. There is mild cardiac enlargement. Normal mediastinum and christie. Normal visualized pulmonary arteries. There is atherosclerotic calcification of the aortic arch with tortuosity. Normal visualized thoracic spine. Normal visualized ribs, clavicles, and shoulders. There is no demonstrated abnormality of the visualized soft tissue structures of the upper abdomen. RAD/Chest 1 View (Portable) IMPRESSION: Nonacute portable x-ray examination of the chest. Electronically Signed: Ezequiel Franks MD ([place]) at 19:40 EST ,
[2023-05-28 19:33] LABS: Anion Gap 1 (5-15); BUN 23 mg/dL (7-18); BUN/Creat Ratio 20.5 RATIO (10-20); Calcium,Total 8.8 mg/dL (8.5-10.1); Chloride 106 mmol/L (98-107); Creatinine, Serum 1.12 mg/dL (0.55-1.02); EST Glomerular Filtration Rate 50 mL/min (>60); Est Glom Filt Rate - Afr Amer 61 mL/min (>60); Glucose 170 mg/dL (74-106); Potassium 4.3 mmol/L (3.5-5.1); Sodium Level 138 mmol/L (136-145); Troponin-I HS 8 pg/mL (3.0-54.0)
[2023-05-28 20:17] VITALS: BP 141/56; PULSE 57; RESP 14; O2SAT 99
[2023-05-28] MEDS: 0.9% Normal Saline (500mL Bag) 500 ML 999 ML IV (20:49)
[2023-05-28 21:04] LABS: Bedside Glucose 168 mg/dL (74-106)
[2023-05-28 21:05] VITALS: BP 140/65; PULSE 63; RESP 18; O2SAT 93
[2023-05-28 21:09] LABS: Troponin-I HS 9 pg/mL (3.0-54.0)
[2023-05-28 21:52] VITALS: BP 141/61; PULSE 58; RESP 16; O2SAT 95
== END 2023-05-28 21:53 | disposition home or self-care (01) ==
PROVIDERS: Emergency Provider Emergency Medicine; PCP Internal Medicine; Visit Provider Emergency Medicine
DX: R00.2 Palpitations (principal); E11.9 Type 2 diabetes mellitus without complications; E86.0 Dehydration; G47.33 Obstructive sleep apnea (adult) (pediatric); Z87.891 Personal history of nicotine dependence; Z86.718 Personal history of other venous thrombosis and embolism
CPT/HCPCS: 71045; 80048; 82962; 84484; 85025; 93005; 99282; J7040; A4216

== ENCOUNTER 2023-09-16 17:53 | Emergency (ER) | payer MEDICARE, SELFPAY ==
[2023-09-16 17:54] VITALS: BP 196/74; PULSE 78; RESP 18; TEMP 35.7; O2SAT 99; BMI 49.0
[2023-09-16 18:18] VITALS: BP 174/77; PULSE 65; RESP 19; O2SAT 99
--- NOTE | 2023-09-16 18:33 | EKG12_ITS ---
Test Reason : PALPITATIONS Blood Pressure : / mmHG Vent. Rate : 075 BPM Atrial Rate : 075 BPM P-R Int : 140 ms QRS Dur : 082 ms QT Int : 396 ms P-R-T Axes : 076 047 068 degrees QTc Int : 442 ms Normal sinus rhythm with sinus arrhythmia Nonspecific ST abnormality Abnormal ECG Confirmed by THOMAS JOSE, BRIAN ([id number]), associate entertainment editor RHONDA BRADFORD ([id number]) on 09/19/2023 9:07:47 AM Referred By: Confirmed By:URIEL GUZMAN MD
--- NOTE | 2023-09-16 18:36 | EX.ED.DYSGE1 ---
HPI History of Present Illness Chief Complaint: Palpitations Informant: patient Narrative Narrative: Presents feeling racing heart and abnormal heartbeat hour prior to arrival. History of tachycardia in the past no atrial fibrillation or dysrhythmias. She is follows cardiology once a year seen Dr. Lott the past. She is on metoprolol 12.5 mg twice daily however states for blood pressure. Also on amlodipine and ramipril. Intermittent symptoms. No lightheaded symptoms no recent cough no recent vomiting diarrhea. Denies chest pains. Denies any dyspnea. Prior similar symptoms: Yes PFSH PFS Medical History Abnormal EKG Asthma Bimalleolar ankle fracture Charcot's joint of left foot Diabetes mellitus, type II Essential hypertension GERD (gastroesophageal reflux disease) History of DVT (deep vein thrombosis) Hyperglycemia due to type 2 diabetes mellitus Hyperlipidemia Hypertension THAIS (obstructive sleep apnea) Palpitations Paroxysmal SVT (supraventricular tachycardia) Premature atrial contractions Premature ventricular contraction Sinus bradycardia Home Medications aspirin 81 mg tablet,delayed release 81 mg PO DAILY heart health 11/24/17 [History Last Taken 01/19/19 16:00] ramipril 10 mg capsule 10 mg PO BID HEART 01/19/19 [History Last Taken 01/19/19 21:00] cholecalciferol (vitamin D3) 1,250 mcg (50,000 unit) capsule 1,250 mcg PO QWEEK SUPPLEMENT 12/03/19 [History Last Taken Unknown] furosemide 20 mg tablet 20 mg PO DAILY PRN water pill 01/22/21 [History Last Taken Unknown] budesonide-formoterol HFA 160 mcg-4.5 mcg/actuation aerosol inhaler 2 puff inhalation BID ASTHMA 12/21/21 [History Last Taken Unknown] zolpidem 5 mg tablet 2.5 mg PO QHS PRN Insomnia 02/11/22 [History Last Taken Unknown] insulin lispro 100 unit/mL subcutaneous solution 6 unit subcut TIDCM dm 06/22/22 [History Last Taken Unknown] omeprazole magnesium 20 mg tablet,delayed release (Prilosec OTC) 20 mg PO DAILY GERD 06/22/22 [History Last Taken Unknown] albuterol sulfate 90 mcg/actuation aerosol inhaler (Ventolin HFA) 2 puff inhalation 4XD PRN sob #8.5 grams 07/14/22 [Rx Last Taken Unknown] amlodipine 5 mg tablet (Norvasc) 5 mg PO DAILY BLOOD PRESSURE 07/17/22 [History Last Taken Unknown] metoprolol tartrate 25 mg tablet 25 mg PO BID BLOOD PRESSURE 07/17/22 [History Last Taken Unknown] acetaminophen 325 mg tablet (Tylenol) 650 mg (2 x 325 mg) PO Q6H PRN PRN Pain 1-10 Or Fever >100.7 #0 tabs 08/02/22 [Rx Last Taken Unknown] insulin glargine-yfgn 100 unit/mL (3 mL) subcutaneous pen 24 unit (0.24 mL) subcut BID #15 mL 08/02/22 [Rx Last Taken Unknown] insulin lispro 100 unit/mL subcutaneous pen (Humalog KwikPen (U-100) Insulin) See Protocol subcut ACHS #0 mL 08/02/22 [Rx Last Taken Unknown] Allergy/AdvReac Type Severity Reaction Status Date / Time hydromorphone Allergy Severe Anaphylaxis Verified 09/16/23 17:54 tramadol Allergy Severe Anaphylaxis Verified 09/16/23 17:54 amiodarone Allergy Intermediate Swelling Verified 09/16/23 17:54 [place] And Derivatives Allergy Intermediate Hives Verified 09/16/23 17:54 morphine Allergy Intermediate confusion Verified 09/16/23 17:54 moxifloxacin Allergy Intermediate Shortness Verified 09/16/23 17:54 of breath nabumetone Allergy Intermediate damaged Verified 09/16/23 17:54 kidney penicillin G Allergy Intermediate TURNS BLUE Verified 09/16/23 17:54 propoxyphene Allergy Intermediate PT UNSURE Verified 09/16/23 17:54 OF REACTION acetaminophen [From [place]] Allergy Mild dystonia Verified 09/16/23 17:54 amlodipine Allergy Mild Abd Verified 09/16/23 17:54 cramps/diarrhea ascorbic acid Allergy Mild Itching Verified 09/16/23 17:54 [From Airborne (ascorbate sodium)] desloratadine Allergy Mild headache Verified 09/16/23 17:54 glutamine Allergy Mild Itching Verified 09/16/23 17:54 [From Airborne (ascorbate sodium)] herbal complex no.124 Allergy Mild Itching Verified 09/16/23 17:54 [From Airborne (ascorbate sodium)] hydrocodone [From [place]] Allergy Mild dystonia Verified 09/16/23 17:54 lysine HCl Allergy Mild Itching Verified 09/16/23 17:54 [From Airborne (ascorbate sodium)] multivitamin with minerals Allergy Mild Itching Verified 09/16/23 17:54 [From Airborne (ascorbate sodium)] pravastatin Allergy Unknown unknown Verified 09/16/23 17:54 rosuvastatin [From Crestor] Allergy Unknown myalgias Verified 09/16/23 17:54 simvastatin Allergy Unknown unknown Verified 09/16/23 17:54 escitalopram Allergy Other Verified 09/16/23 17:54 hydrochlorothiazide Allergy Other Verified 09/16/23 17:54 Pyifiwm-ICP-HwD Reductase AdvReac Severe myalgias Verified 09/16/23 17:54 Inhibitor [Yvvncbb-Nie-Gbk Reductase Inhibitor] amoxicillin [From Augmentin] AdvReac Other Verified 09/16/23 17:54 clavulanic acid AdvReac Other Verified 09/16/23 17:54 [From Augmentin] codeine AdvReac Nausea Verified 09/16/23 17:54 naproxen [From Naprosyn] AdvReac Nausea Verified 09/16/23 17:54 Family History Mother Aortic stenosis Presence of permanent cardiac pacemaker Surgical History History of cholecystectomy History of herniorrhaphy History of tonsillectomy Status post ORIF of fracture of ankle Social History household members: spouse Smoking Status: Former smoker alcohol intake: never substance use type: does not use caffeine: Yes Type: coffee Number of servings: 3 ROS ROS ED Constitutional Constitutional ED: Denies chills, fever(s) or sweats Eyes Eyes: Denies change in vision ENT ENT ED: Denies dysphagia or sore throat Cardiovascular Cardiovascular: Reports palpitations and racing heartbeat; Denies chest pain or leg edema Respiratory/Chest Respiratory/Chest: Denies cough, dyspnea or dyspnea on exertion Gastrointestinal Gastrointestinal: Denies abdominal pain, diarrhea, nausea or vomiting Genitourinary Genitourinary ED: Denies dysuria, hematuria or urinary frequency Musculoskeletal Musculoskeletal: Denies back pain, extremity pain or neck pain Integumentary Denies rash or wounds Neurologic Neurologic: Denies headache(s), paresthesias or weakness EXAM Physical Exam Const Vital Signs: 09/16/23 17:54 09/16/23 18:18 09/16/23 20:17 Temperature 96.3 F L 97.2 F L Temperature Source Temporal Pulse Rate 78 65 59 L Respiratory Rate 18 19 H 18 Blood Pressure 196/74 H 174/77 H 116/58 L Blood Pressure Mean 114 109 77 Pulse Ox 99 99 98 Oxygen Delivery Method Room Air Room Air Positive well nourished and well developed General Appearance ED: well developed and NAD HEENT Reports moist mucous membranes normocephalic and atraumatic Eyes PERRL, EOMs intact bilaterally and conjunctivae normal General Eye ED: Yes normal appearance of both eyes Neck no lymphadenopathy and supple General: Negative for tenderness Chest Wall Chest: Negative for tenderness Resp normal respiratory effort and normal air movement Effort and Inspection: symmetric chest movement; Negative for respiratory distress Cardio regular rate, regular rhythm and no murmurs Peripheral Pulses: pulses 2+ throughout GI normal to inspection, nondistended, normoactive bowel sounds and non-tender Palpation: Negative for guarding or rebound tenderness present Back/Spine no CVA tenderness and no thoracic nor lumbar tenderness Extremity normal to inspection General Extremety ED: Negative for edema or tenderness General Extremity: Negative for edema Neuro oriented x3 and no sensory deficits noted Sensorium / Orientation: awake and alert Skin no rashes or lesions noted and no wounds MDM MDM MDM Narrative Medical decision making narrative: Interventions / MDM: Differential diagnosis: Cardiac dysrhythmia Diagnosis considered but do not suspect: Pulmonary embolism however no dyspnea or hypoxia My EKG interpretation: Sinus rate of 75, no ST or T wave changes QTc 442. Imaging independently reviewed and interpreted by myself: N/A External documents reviewed: N/A Test considered but not ordered:N/A ED course: Patient vital stable heart rate in the 70s. On the alarm security or surveillance monitor evaluation intermittent PACs however also 1 time had a brief run of narrow complex tachycardia that resolved. Heart rate 137, rhythm was printed and placed into her chart. Patient remained on the monitor, will check labs and thyroid function. 1930: Labs all stable with electrolytes and thyroid. Able to coordinate 48-hour Holter monitor through the ED. Heart rate high 60s to low 70s. She is currently on metoprolol. She will also follow-up with her cardiology team with strict return precautions. All questions were answered. Re-evaluation: stable Disposition discussed with patient/family/significant other: Patient and significant other Case discussed with consulting clinician: N/A This note was generated with [employer] dictation software. It may contain incorrect words, spelling, and punctuation that were not noted in checking the note before signing. Lab Data Attestation: I reviewed the patient's lab results. Labs: Laboratory Results - last 24 hr 09/16/23 18:15 WBC 7.0 RBC 4.58 Hgb 13.0 Hct 40.7 MCV 88.9 MCH 28.4 MCHC 31.9 L RDW Std Deviation 40.3 RDW Coeff of Madalyn 12.5 Plt Count 230 MPV 12.2 H Immature Gran % (Auto) 0.400 Neut % (Auto) 72.2 H Lymph % (Auto) 14.9 L Larue % (Auto) 7.7 Eos % (Auto) 4.1 Baso % (Auto) 0.7 Absolute Neuts (auto) 5.1 Absolute Lymphs (auto) 1.04 Nucleated RBC % 0 Sodium 137 Potassium 3.7 Chloride 104 Carbon Dioxide 28.0 Anion Gap 5 BUN 20 H Creatinine 0.93 Estim Creat Clear Calc 78.67 Est GFR (MDRD) Af Amer 75 Est GFR (MDRD) Non-Af 62 BUN/Creatinine Ratio 21.6 H Glucose 144 H Calcium 9.2 TSH 2.95 Discharge Plan Triage Chief Complaint: Palpitations ED Provider: Benjamín Stanford Dx/Rx/DC Orders Clinical Impression: Palpitations, Paroxysmal supraventricular tachycardia Instructions: ED Understanding Supraventricular Tachycardia (SVT) Prescriptions: No Action aspirin 81 mg tablet,delayed release (DR/EC) 81 mg PO DAILY cholecalciferol (vitamin D3) 1,250 mcg (50,000 unit) capsule 1,250 mcg PO QWEEK furosemide 20 mg tablet 20 mg PO DAILY PRN (Reason: water pill) insulin lispro 100 unit/mL solution 6 unit subcut TIDCM Protocol: 4. Sliding Scale Insulin High-Med Dosing Condition: 150-199 mg/dl = 2 units Condition: 200-259 mg/dl = 4 units Condition: 260-324 mg/dl = 6 units Condition: 325-374 mg/dl = 8 units Condition: 375-409 mg/dl = 10 units Condition: 410-449 mg/dl = 11 units Condition: Greater than 449 call physician Protocol Text: - Use for Total Daily Dose of Insulin 56-80 units - Patient who are insulin resistant or septic HIGH MEDIUM DOSING ALGORITHM Patient Comments: INJECT 3 TO 10 UNITS SUBCUTANEOUSLY BEFORE MEALS DIRECTED budesonide-formoterol 160-4.5 mcg/actuation HFA aerosol inhaler 2 puff inhalation BID omeprazole magnesium [Prilosec OTC] 20 mg tablet,delayed release (DR/EC) 20 mg PO DAILY ramipril 10 MG capsule 10 mg PO BID Patient Comments: TAKE 1 CAPSULE BY MOUTH TWICE DAILY zolpidem 5 mg Tablet 2.5 mg PO QHS PRN (Reason: Insomnia) albuterol sulfate [Ventolin HFA] 90 mcg/actuation HFA aerosol inhaler 2 puff INHALATION 4XD PRN (Reason: sob) Qty: 8.5 0RF Rx Instructions: use four times a day for the next seven days, then use every 6 hours as needed for shortness of breath amlodipine [Norvasc] 5 mg tablet 5 mg PO DAILY metoprolol tartrate 25 mg tablet 25 mg PO BID acetaminophen [Tylenol] 325 mg Tablet 650 mg PO Q6H PRN PRN (Reason: Pain 1-10 Or Fever >100.7) Qty: 0 0RF insulin lispro [Humalog KwikPen Insulin] 100 unit/mL Insulin Pen See Protocol subcut ACHS Qty: 0 0RF Protocol: 4. Sliding Scale Insulin High-Med Dosing Condition: 150-199 mg/dl = 2 units Condition: 200-259 mg/dl = 4 units Condition: 260-324 mg/dl = 6 units Condition: 325-374 mg/dl = 8 units Condition: 375-409 mg/dl = 10 units Condition: 410-449 mg/dl = 11 units Condition: Greater than 449 call physician Protocol Text: - Use for Total Daily Dose of Insulin 56-80 units - Patient who are insulin resistant or septic HIGH MEDIUM DOSING ALGORITHM insulin glargine-yfgn 100 unit/mL (3 mL) insulin pen 24 unit subcut BID Qty: 15 0RF Primary Care Provider: Luzma Palencia Referrals: Lenin Michaels MD [Med Staff - Active Staff] - 1 Week Luzma Palencia MD [Primary Care Provider] - Keep Benji appointment Activity Restrictions/Additional Instructions: Brief run of supraventricular tachycardia noted heart rate around 130s. Maintain 48-hour Holter monitor continue metoprolol. Follow-up with your cardiology and your PCP. If symptoms return persistent worsens, return to ED for reevaluation. Disposition Disposition: Home, Self Care Discharge Date/Time: 09/16/23 20:20
[2023-09-16 18:50] LABS: Absolute Lymphocyte Count 1.04 X10^3/uL (0.83-4.51); Absolute Neutrophil Count 5.1 X10^3/uL (2.0-7.7); Basophil# 0.05 X10^3/uL; Basophil% 0.7 % (0-1); Eosinophil# 0.29 X10^3/uL; Eosinophils% 4.1 % (0-5); Hematocrit 40.7 % (37-47); Lymphocyte # 1.04 X10^3/ul (0.83-4.51); Lymphocyte % 14.9 % (19-41); Mean Corp Hgb Conc 31.9 g/dL (32-36); Mean Corpuscular Hgb 28.4 pg (27.0-32.0); Mean Corpuscular Volume 88.9 fL (81-99); Mean Platelet Vol. 12.2 fl (6.2-12.0); Monocyte# 0.54 X10^3/uL; Monocyte% 7.7 % (0-10); NRBC Flagged by Analyzer 0 % (0-5); Neutrophil # 5.05 X10^3/uL (2.7-7.7); Neutrophil % 72.2 % (47-70); Platelet Count 230 K/mm3 (150-450); RBC Distribution Width CV 12.5 % (11.6-14.6); RBC Distribution Width SD 40.3 fl (35.1-43.9); Red Blood Count 4.58 M/mm3 (4.2-5.4)
[2023-09-16 19:19] LABS: Anion Gap 5 (5-15); BUN 20 mg/dL (7-18); BUN/Creat Ratio 21.6 RATIO (10-20); Calcium,Total 9.2 mg/dL (8.5-10.1); Chloride 104 mmol/L (98-107); Creatinine, Serum 0.93 mg/dL (0.55-1.02); EST Glomerular Filtration Rate 62 mL/min (>60); Est Glom Filt Rate - Afr Amer 75 mL/min (>60); Estimated Creatinine Clearance 78.67 ml/min; Glucose 144 mg/dL (74-106); Potassium 3.7 mmol/L (3.5-5.1); Sodium Level 137 mmol/L (136-145); Thyroid Stim Hormone (TSH) 2.95 uIU/mL (0.358-3.74)
--- OUTSIDE RECORDS SUMMARY | 2023-09-16 19:28 | XMS RPT_ITS | CCD ---
Author Name Unknown Address [address] [place] [address] Organization [facility] Care Team Providers Care Scenic Arts Supervisor Name Role Phone Lydia Cook Unavailable Unavailable [...] Translations: [ACETAMINOPHEN-COD EINE] Drug Allergy 5 Vomiting [facility] Work Phone: (20 sources) Albuterol; Translations: [ALBUTEROL SULFATE] Drug Allergy 4 GI Upset, Vomiting [facility] Work Phone: (20 sources) aMILoride / hydroCHLOROthiazid e; Translations: [AMILORIDE-HYDROCH LOROTHIAZIDE] Drug Allergy 1 Other: See Comments [facility] Work Phone: [phone] (20 sources) atorvastatin; Translations: [ATORVASTATIN] Drug Allergy 5 Myalgia [facility] Work Phone: [phone] (20 sources) Escitalopram; Translations: [ESCITALOPRAM] Drug Allergy 3 Intolerance [facility] Work Phone: (20 sources) Naproxen; Translations: [NAPROXEN] Drug Allergy 5 GI Upset [facility] Work Phone: (20 sources) Pravastatin; Translations: [PRAVASTATIN] Drug Allergy 7 GI Upset [facility] Work Phone: (20 sources) rosuvastatin; Translations: [ROSUVASTATIN] Drug Allergy 1 Intolerance [facility] Work Phone: (20 sources) Simvastatin; Translations: [SIMVASTATIN] Drug Allergy 7 Myalgia [facility] Work Phone: (16 sources) Doxycycline; Translations: [DOXYCYCLINE] Drug Allergy 3 GI Upset [facility] Work Phone: [phone] Medications Current Medications [...] Drug Class(es) Dates Sig (Normalized) Sig (Original) [id number] 200 actuat albuterol 0.09 mg/actuat metered dose [...] Episodic Other nervous system disorders (3 sources) Iqlktoo-Vgbou-Xewoj disease; Translations: [Hereditary motor and sensory neuropathy] [...] 09-30-2009 Episodic Other aftercare (1 source) Other long-term (current) drug therapy; Translations: [Encounter for long-term [...] 12:05-0500 Body weight 156.49 kg Lydia Grande BALANCE WHEEL FACER.CONTAINER MAKER Work Phone: [facility] 09-01-2023 12:05-0500 Diastolic blood pressure 74 mm[Hg] Lydia Grande BALANCE WHEEL FACER.CONTAINER MAKER Work Phone: [facility] 09-01-2023 12:05-0500 Heart rate 64 /min Lydia Grande BALANCE WHEEL FACER.CONTAINER MAKER Work Phone: [facility] 09-01-2023 12:05-0500 Respiratory rate 16 /min Lydia Grande BALANCE WHEEL FACER.CONTAINER MAKER Work Phone: [facility] 09-01-2023 12:05-0500 SaO2% (BldA) [Mass fraction] 96 % Lydia Grande BALANCE WHEEL FACER.CONTAINER MAKER Work Phone: [facility] 09-01-2023 12:05-0500 Systolic blood pressure 144 mm[Hg] Lydia Grande BALANCE WHEEL FACER.CONTAINER MAKER Work Phone: [facility] 06-23-2023 08:53-0500 Diastolic blood pressure 84 mm[Hg] Tierney Mayra PA-C Work Phone: [facility] 06-23-2023 08:53-0500 Heart rate 57 /min Tierney Mayra PA-C Work Phone: [facility] 06-23-2023 08:53-0500 Respiratory rate 17 /min Tierney Mayra PA-C Work Phone: [facility] 06-23-2023 08:53-0500 SaO2% (BldA) [Mass fraction] 96 % Tierney Mayra PA-C Work Phone: [facility] 06-23-2023 08:53-0500 Systolic blood pressure 122 mm[Hg] Tierney Helm PA-C Work Phone: [facility] 05-23-2023 14:08-0500 Body temperature 97.2 [degF] Octavio Reza MD Work Phone: [facility] 05-23-2023 14:08-0500 Body weight 154.22 kg Octavio Reza MD Work Phone: [facility] 05-23-2023 14:08-0500 Diastolic blood pressure 82 mm[Hg] Octavio Reza MD Work Phone: [facility] 05-23-2023 14:08-0500 Heart rate 68 /min Octavio Reza MD Work Phone: [facility] 05-23-2023 14:08-0500 Respiratory rate 18 /min Octavio Reza MD Work Phone: [facility] 05-23-2023 14:08-0500 SaO2% (BldA) [Mass fraction] 98 % Octavio Reza MD Work Phone: [facility] 05-23-2023 14:08-0500 Systolic blood pressure 128 mm[Hg] Octavio Reza MD Work Phone: [facility] 05-16-2023 09:30-0400 Body height 176.5 cm Anant Lees MD Work Phone: [facility] 05-16-2023 09:30-0400 Body weight 153.77 kg Anant Lees MD Work Phone: [facility] 05-16-2023 09:30-0400 Diastolic blood pressure 73 mm[Hg] Anant Lees MD Work Phone: [facility] 05-16-2023 09:30-0400 Heart rate 60 /min Anant Lees MD Work Phone: [facility] 05-16-2023 09:30-0400 SaO2% (BldA) [Mass fraction] 97 % Anant Lees MD Work Phone: [facility] 05-16-2023 09:30-0400 Systolic blood pressure 124 mm[Hg] Anant Lees MD Work Phone: [facility] 01-17-2023 13:47-0400 Body temperature 97 [degF] Octavio Reza MD Work Phone: [facility] 01-17-2023 13:47-0400 Diastolic blood pressure 69 mm[Hg] Octavio Reza MD Work Phone: [facility] 01-17-2023 13:47-0400 Heart rate 63 /min Octavio Reza MD Work Phone: [facility] 01-17-2023 13:47-0400 Respiratory rate 18 /min Octavio Reza MD Work Phone: [facility] 01-17-2023 13:47-0400 SaO2% (BldA) [Mass fraction] 96 % Octavio Reza MD Work Phone: [facility] 01-17-2023 13:47-0400 Systolic blood pressure 122 mm[Hg] Octavio Reza MD Work Phone: [facility] 10-05-2022 12:57-0400 Body height 175.3 cm Davon Narda BALANCE WHEEL FACER.STRING TOP SEALER Work Phone: [facility] 10-05-2022 12:57-0400 Body temperature 97.39 [degF] Davon Narda BALANCE WHEEL FACER.STRING TOP SEALER Work Phone: [facility] 10-05-2022 12:57-0400 Body weight 151.05 kg Davon Narda BALANCE WHEEL FACER.STRING TOP SEALER Work Phone: [facility] 10-05-2022 12:57-0400 Diastolic blood pressure 62 mm[Hg] Davon Narda BALANCE WHEEL FACER.STRING TOP SEALER Work Phone: [facility] 10-05-2022 12:57-0400 Heart rate 71 /min Davon Narda BALANCE WHEEL FACER.STRING TOP SEALER Work Phone: [facility] 10-05-2022 12:57-0400 Respiratory rate 16 /min Davon Narda BALANCE WHEEL FACER.STRING TOP SEALER Work Phone: [facility] 10-05-2022 12:57-0400 SaO2% (BldA) [Mass fraction] 97 % Davon Narda BALANCE WHEEL FACER.STRING TOP SEALER Work Phone: [facility] 10-05-2022 12:57-0400 Systolic blood pressure 138 mm[Hg] Davon Narda BALANCE WHEEL FACER.STRING TOP SEALER Work Phone: [facility] 09-07-2022 18:00-0500 Diastolic blood pressure 64 mm[Hg] Octavio Reza MD Work Phone: [facility] 09-07-2022 18:00-0500 Systolic blood pressure 144 mm[Hg] Octavio Reza MD Work Phone: [facility] 09-07-2022 17:29-0500 Body temperature 97.9 [degF] Octavio Reza MD Work Phone: [facility] 09-07-2022 17:29-0500 Heart rate 77 /min Octavio Reza MD Work Phone: [facility] 09-07-2022 17:29-0500 Respiratory rate 18 /min Octavio Reza MD Work Phone: [facility] 09-07-2022 17:29-0500 SaO2% (BldA) [Mass fraction] 98 % Octavio Reza MD Work Phone: [facility] 08-17-2022 15:59-0500 Body temperature 98.2 [degF] Octavio Reza MD Work Phone: [facility] 08-17-2022 15:59-0500 Diastolic blood pressure 68 mm[Hg] Octavio Reza MD Work Phone: [facility] 08-17-2022 15:59-0500 Heart rate 61 /min Octavio Reza MD Work Phone: [facility] 08-17-2022 15:59-0500 Respiratory rate 18 /min Octavio Reza MD Work Phone: [facility] 08-17-2022 15:59-0500 SaO2% (BldA) [Mass fraction] 98 % Octavio Reza MD Work Phone: [facility] 08-17-2022 15:59-0500 Systolic blood pressure 120 mm[Hg] Octavio Reza MD Work Phone: [facility] 05-18-2022 09:19-0400 Diastolic blood pressure 80 mm[Hg] Octavio Reza MD Work Phone: [facility] 05-18-2022 09:19-0400 Heart rate 55 /min Octavio Reza MD Work Phone: [facility] 05-18-2022 09:19-0400 SaO2% (BldA) [Mass fraction] 98 % Octavio Reza MD Work Phone: [facility] 05-18-2022 09:19-0400 Systolic blood pressure 128 mm[Hg] Octavio Reza MD Work Phone: [facility] 02-15-2022 14:44-0400 Body weight 153.77 kg Lydia Grande BALANCE WHEEL FACER.CONTAINER MAKER Work Phone: [facility] 02-15-2022 14:44-0400 Diastolic blood pressure 60 mm[Hg] Lydia Grande BALANCE WHEEL FACER.CONTAINER MAKER Work Phone: [facility] 02-15-2022 14:44-0400 Heart rate 63 /min Lydia Grande BALANCE WHEEL FACER.CONTAINER MAKER Work Phone: [facility] 02-15-2022 14:44-0400 Respiratory rate 16 /min Lydia Grande BALANCE WHEEL FACER.CONTAINER MAKER Work Phone: [facility] 02-15-2022 14:44-0400 SaO2% (BldA) [Mass fraction] 96 % Lydia Grande BALANCE WHEEL FACER.CONTAINER MAKER Work Phone: [facility] 02-15-2022 14:44-0400 Systolic blood pressure 144 mm[Hg] Lydia Grande BALANCE WHEEL FACER.CONTAINER MAKER Work Phone: [facility] 01-11-2022 14:59-0400 Body weight 153.32 kg Octavio Reza MD Work Phone: [facility] 01-11-2022 14:59-0400 Diastolic blood pressure 82 mm[Hg] Octavio Reza MD Work Phone: [facility] 01-11-2022 14:59-0400 Heart rate 68 /min Octavio Reza MD Work Phone: [facility] 01-11-2022 14:59-0400 SaO2% (BldA) [Mass fraction] 97 % Octavio Reza MD Work Phone: [facility] 01-11-2022 14:59-0400 Systolic blood pressure 152 mm[Hg] Octavio Reza MD Work Phone: [facility] 12-23-2021 16:18-0400 Body temperature 97.11 [degF] Guillermo Maurer MD Work Phone: [facility] 12-23-2021 16:18-0400 Body weight 151.05 kg Guillermo Maurer MD Work Phone: [facility] 12-23-2021 16:18-0400 Diastolic blood pressure 82 mm[Hg] Guillermo Maurer MD Work Phone: [facility] 12-23-2021 16:18-0400 Heart rate 72 /min Guillermo Maurer MD Work Phone: [facility] 12-23-2021 16:18-0400 Respiratory rate 16 /min Guillermo Maurer MD Work Phone: [facility] 12-23-2021 16:18-0400 Systolic blood pressure 154 mm[Hg] Guillermo Maurer MD Work Phone: [facility] 12-17-2021 12:44-0400 Body temperature 97.11 [degF] Wanda Phillips BALANCE WHEEL FACER.STRING TOP SEALER Work Phone: [facility] 12-17-2021 12:44-0400 Diastolic blood pressure 88 mm[Hg] Wanda Praisler-Wood BALANCE WHEEL FACER.STRING TOP SEALER Work Phone: [facility] 12-17-2021 12:44-0400 Heart rate 71 /min Wanda Praisler-Wood BALANCE WHEEL FACER.STRING TOP SEALER Work Phone: [facility] 12-17-2021 12:44-0400 Respiratory rate 18 /min Wanda Praisler-Wood BALANCE WHEEL FACER.STRING TOP SEALER Work Phone: [facility] 12-17-2021 12:44-0400 SaO2% (BldA) [Mass fraction] 96 % Wanda Praisler-Wood BALANCE WHEEL FACER.STRING TOP SEALER Work Phone: [facility] 12-17-2021 12:44-0400 Systolic blood pressure 146 mm[Hg] Wanda Praisler-Wood BALANCE WHEEL FACER.STRING TOP SEALER Work Phone: [facility] 10-29-2021 09:00-0400 Diastolic blood pressure 66 mm[Hg] Holland Carmichael MD Work Phone: [facility] 10-29-2021 09:00-0400 Heart rate 80 /min Holland Carmichael MD Work Phone: [facility] 10-29-2021 09:00-0400 Respiratory rate 20 /min Holland Carmichael MD Work Phone: [facility] 10-29-2021 09:00-0400 SaO2% (BldA) [Mass fraction] 93 % Holland Carmichael MD Work Phone: [facility] 10-29-2021 09:00-0400 Systolic blood pressure 142 mm[Hg] Holland Carmichael MD Work Phone: [facility] 10-29-2021 07:58-0400 Body temperature 97.59 [degF] Holland Carmichael MD Work Phone: [facility] 09-11-2021 11:56-0500 Diastolic blood pressure 72 mm[Hg] Octavio Reza MD Work Phone: [facility] 09-11-2021 11:56-0500 Systolic blood pressure 148 mm[Hg] Octavio Reza MD Work Phone: [facility] 09-11-2021 10:47-0500 Heart rate 62 /min Octavio Reza MD Work Phone: [facility] 11-22-2016 10:37-0400 BMI (Body Mass Index) 53.08 [...] BP Diastolic 70 mm[Hg] Bettina Vaca RN [facility] Work Phone: 07-21-2015 13:03-0500 BP Systolic 146 mm[Hg] Bettina Vaca RN [facility] Work Phone: 07-21-2015 13:03-0500 BSA (Body Surface Area) 2.65 m2 Bettina Vaca RN [facility] Work Phone: 07-21-2015 13:03-0500 Pulse (Heart Rate) 64 /min Bettina Vaca RN [facility] Work Phone: 07-21-2015 13:03-0500 Respiratory Rate 14 /min Bettina Vaca RN [facility] Work Phone: 07-21-2015 13:03-0500 Weight 158.76 kg Bettina Vaca RN [facility] Work Phone: 01-06-2015 15:20-0400 BMI (Body Mass Index) [facility] Work Phone: 03-15-2012 13:57-0400 Height 177.8 cm Bettina Vaca RN [facility] Work Phone: Encounters Encounter Date Encounter Type Care Provider Facility Start: 09-05-2023 Telephone encounter Lydia Saad butler BALANCE WHEEL FACER.CONTAINER MAKER Work Phone: [facility] [place] Procedures Date Procedure Procedure Detail Performing Clinician Start: 06-23-2023 Noninvasive ear/puls e oximetry multiple deter Tierney Shoemaker [employer] Work Phone: Start: 06-23-2023 Nitric oxide gas determination Tierney Shoemaker [employer] [facility] Work Phone: Start: 05-18-2022 INFLUENZA SEASONAL QUADRIVALENT [...] Activity Detail Author Start: 10-29-2026 Colonoscopy COLONOSCOPY [facility] Start: 10-29-2026 COLORECTAL CANCER SCREENING COLORECTAL CANCER SCREENING [facility] Start: 10-29-2026 Screening for malign ant neoplasm of colon [facility] Start: 09-02-2024 Hepatitis B screening Urine Al bumin:Creatinine Ratio [facility] Start: 06-29-2024 Glaucoma screening Dilated Retinal E xam [facility] Start: 05-23-2024 Annual PCP Team Bedspring Assembler matthias Disease Visit Annual PCP Team Chronic Disease Visit [facility] Start: 05-16-2024 BP Controlled (<130/80) BP Controlle d (<130/80) [facility] Start: 03-01-2024 Hemoglobin A1c measurement HbA1C [facility] Start: 01-18-2024 ANNUAL PCP TEAM CARBON PAPER INTERLEAFER MATTHIAS DISEASE VISIT ANNUAL PCP TEAM CHRONIC DISEASE VISIT [facility] Start: 01-18-2024 BP CONTROLLED (<130/80) BP CONTROLLE D (<130/80) [facility] Start: 01-18-2024 COVID-19 VACCINE (#1) COVID-19 VACCI NE (#1) [facility] Immunizations Immunization Date Immunization Notes Care Provider Fa cility 05-18-2022 influenza, high-dose , quadrivalent vaccine (FLUZONE HIGH DOSE QUADRIVALENT) Octavio Reza MD Work Phone: [facility] 05-18-2022 influenza virus vaccine, unspecified formulation Anant Lees MD Work Phone: [facility] 07-02-2021 influenza, high-dose , quadrivalent vaccine (FLUZONE HIGH DOSE QUADRIVALENT) Octavio Reza MD Work Phone: [facility] 04-15-2020 influenza, high-dose , quadrivalent vaccine (FLUZONE HIGH DOSE QUADRIVALENT) Octavio Reza MD Work Phone: [facility] 04-16-2019 influenza, high dose seasonal, preservative-free Octavio Reza MD Work Phone: [facility] 04-12-2018 influenza, high dose seasonal, preservative-free Octavio Reza MD Work Phone: [facility] 04-11-2017 influenza, high dose seasonal, preservative-free Octavio Reza MD Work Phone: [facility] 05-10-2016 influenza, high dose seasonal, preservative-free Octavio Reza MD Work Phone: [facility] Work Phone: 04-16-2016 pneumococcal vaccine , unspecified formulation Octavio Reza MD Work Phone: [facility] 03-16-2016 pneumococcal conjuga te vaccine, 13 valent Octavio Reza MD Work Phone: [facility] Work Phone: 05-27-2015 influenza, high dose seasonal, preservative-free Octavio Reza MD Work Phone: [facility] 06-12-2014 pneumococcal polysaccharide vaccine, 23 valent Octavio Reza MD Work Phone: [facility] 05-23-2013 influenza virus vaccine, unspecified formulation Octavio Reza MD Work Phone: [facility] 05-23-2013 influenza, seasonal, injectable Octavio Reza MD Work Phone: [facility] 04-13-2012 influenza virus vaccine, unspecified formulation Octavio Reza MD Work Phone: [facility] 06-01-2007 influenza virus vaccine, unspecified formulation Octavio Reza MD Work Phone: [facility] Work Phone: 05-18-2006 influenza virus vaccine, unspecified formulation Octavio Reza MD Work Phone: [facility] Work Phone: 06-15-2005 influenza virus vaccine, unspecified formulation Octavio Reza MD Work Phone: [facility] Work Phone: 07-26-2000 pneumococcal polysaccharide vaccine, 23 valent Octavio Reza MD Work Phone: [facility] Work Phone: NEGATED: Highlighted row has not occurred!06-25-2023 influenza (HD-IIV4) vaccine, age 65+ yr, high dose, quadrivalent, PF (FLUZONE HIGH-DOSE) Octavio Reza MD Work Phone: [facility] Work Phone: NEGATED: Highlighted row has not occurred!05-23-2023 influenza (HD-IIV4) vaccine, age 65+ yr, high dose, quadrivalent, PF (FLUZONE HIGH-DOSE) Lydia Grande APRN.CONTAINER MAKER Work Phone: [facility] NEGATED: Highlighted row has not occurred!02-15-2022 COVID-19 vaccine, age 12+ yr ([employer] - [employer]) Lydia Grande APRN.CONTAINER MAKER Work Phone: [facility] Work Phone: NEGATED: Highlighted row has not occurred!02-15-2022 influenza virus vaccine, unspecified formulation Lydiajennifer Grande APRN.CONTAINER MAKER Work Phone: [facility] Work Phone: NEGATED: Highlighted row has not occurred!02-15-2022 tetanus toxoid, reduced diphtheria toxoid, and acellular pertussis vaccine, adsorbed Lydia Grande APRN.CONTAINER MAKER Work Phone: [facility] Work Phone: Payers Date Payer Category Payer Medicare [employer] MEDICARE A ETNA MEDICARE PPO [id number] 2021-Present [phone] [address] [place] [address] PPO [id number] 2021 Medicare [id number] 2021 Medicare [id number] Social History Date Type Detail Facility Start: 09-07-2022 Tobacco smoking stat us NHIS Ex-smoker [facility] End: 10-21-1998 History of tobacco use Current smoker [facility] End: 10-21-1998 History of tobacco use Cigarette Smoker [facility] Start: 09-30-2021 End: 09-01-2023 Alcohol intake Current drinker of alcohol (finding) [facility] Start: 02-24-2018 History SDOH Alcohol Comment Rarely [facility] Start: 1945 Sex Assigned At Not on file [facility] Start: 09-20-2021 End: 05-18-2022 Exposure to SARS-CoV-2 (event) Not sure [facility] Start: 12-13-2021 End: 12-23-2021 Exposure to SARS-CoV-2 (event) Unable to assess [facility] Work Phone: Start: 09-07-2022 End: 01-17-2023 Cigarettes smoked current (pack per day) - Reported 0.5 [facility] Start: 09-07-2022 Tobacco use and exposure Smokeless tobacco non-user [facility] Work Phone: Start: 01-11-2022 End: 01-17-2023 Tobacco use panel [facility] Adult Depression Screening Assessment 2 [facility] Medical Equipment Procedure Code Equipment Code Equipment [...] went over results, notes from Lydia Grande MEDICAL INSURANCE CLAIMS SPECIALIST with understanding,. After going over questions with Sed rate and CRP being elevated. Patient wants to stay locally to see Acid Tank Liner since she is in wheel chair and [...] If she would like to see a dinkey engine firer/fireman I can place a consult. Schedule if [...] Lymph 1.00 - 4.00 k/uL 0.48 (L) [place]% % 6.3 Abs [place] <0.87 k/uL 0.46 Eosin% % 3.6 Abs [...] able. Thank you. documented in this encounter [facility] 09-01-2023 Note HNO ID: [id number] Author: LYDIA GRANDE APRN.CNS Service: ? Author Type: Nurse Specialist [...] Alleviate: advil seemed to help Aggravate: no Yyyx-itm-rahwovc: Prior occurrence: no Review of Systems Respiratory: Negative. Musculoskeletal: Positive for arthralgias. Objective BP 144/74 Pulse 64 Resp 16 Wt (!) 156.5 kg (345 lb) SpO2 96% BMI 50.95 kg/m? Physical Exam Vitals and nursing note reviewed. Constitutional: Appearance: Normal appearance. HENT: Head: Normocephalic and atraumatic. Mouth/Throat: Lips: Lequire. Mouth: Mucous membranes are moist. Eyes: Conjunctiva/sclera: [...] Nausea Ventolin [[place]bu (more content not included)... [facility] 09-01-2023 History of Presen t illness Narrative [...] Alleviate: advil seemed to help Aggravate: no Gszl-knw-wioljey: Prior occurrence: no Review of Systems Respiratory: Negative. Musculoskeletal: Positive for arthralgias. Objective BP 144/74 Pulse 64 Resp 16 Wt (!) 156.5 kg (345 lb) SpO2 96% BMI 50.95 kg/m Physical Exam Vitals and nursing note reviewed. Constitutional: Appearance: Normal appearance. HENT: Head: Normocephalic and atraumatic. Mouth/Throat: Lips: Lequire. Mouth: Mucous membranes are moist. Eyes: Conjunctiva/sclera: [...] by mouth one time a week. Insulin [place], Disposable, (BD ULTRA-FINE FADY PEN NEEDLE) 32 [...] be seen sooner for follow-up. Lydia Grande APRN.CONTAINER MAKER Medical Decision Making: Problems: Low: Acute, uncomplicated illness or injury Data: Unique test(s) ordered: 3+ Risk: Moderate: Drug management Medical Decision Making Level: 4 - Moderate documented in this encounter [facility] 06-23-2023 Note HNO ID: [id number] Author: Zora Cortes RPFT Service: ? Author [...] DATE: June 23, 2023 TIME: 9:38 AM [facility] 06-23-2023 Note HNO ID: [id number] Author: Zora Cortes RPFT Service: ? Author [...] unable to ambulate at a faster pace [facility] 06-23-2023 Note HNO ID: [id number] Author: Zora Cortes RPFT Service: ? Author Type: Respiratory Therapist Type: Progress Notes Filed: 06/23/2023 9:38 AM Note Text: PULM FUNCTION SMARTBLOCK: Provider: Tierney Helm PA-C Assisting Tech: Zora Cortes RPFT Spirometry: 1 Oximetry - Ambulation: 1 Exhaled Nitric Oxide: 1 [facility] 06-23-2023 Note HNO ID: [id number] Author: Tierney Helm PA-C Service: ? Author Type: Physician Bargeman Type: Progress Notes Filed: 06/24/2023 9:51 AM Note Text: Patient: Shereen Seals PCP: Octavio Reza MD CC: follow up HPI: Shreeen Seals 77 year old female former smoker, 10 pack years (quitting 1998) with PMH significant for hyperlipidemia, HTN, mitral valve disorder, GERD, Vit D deficiency, DM, THAIS non-compliant with PAP therapy, and asthma. Last office visit was 07/02/2021 with myself. Since that time patient has been admitted to [facility] on two occasions. The first being [...] area once hugh (more content not included)... [facility] 06-23-2023 History of Presen t illness Narrative [...] that time patient has been admitted to [facility] on two occasions. The first being [...] (Patient not taking: Reported on 05/23/2023) Insulin [place], Disposable, (BD ULTRA-FINE FADY PEN NEEDLE) 32 [...] 04/18/2017 56.0 (A) PFT, 06/23/2023 CXR, 05/28/2023 [facility] FINDINGS: The lungs are clear and [...] Tierney Helm PA-C documented in this encounter [facility] 06-14-2023 Miscellaneous Notes Patient has been identified [...] Gloria Rand RN. documented in this encounter [facility] 05-23-2023 Note HNO ID: [id number] Author: Octavio Reza MD Service: ? Author Type: Physician Type: Progress Notes Filed: 06/25/2023 10:51 PM Note Text: This note was created using Mobile Event Guideriter. Subjective Shereen Seals is a 77 year old female. Patient presents with: F/U 4 month: Labs prior SUBJECTIVE: Shereen Seals is a 77 year old year old lady here today for 4 month follow up appointment for review of medical conditions. Had low sugar this AM at 69. Able to get juice. Reviewed had bad experience at [facility]. Noted saw Dr. Lees. Working on [...] times daily before meals. As directed Insulin [place], Disposable, (BD ULTRA-FINE FADY PEN NEEDLE) 32 [...] 9.5 ). Weight (more content not included)... [facility] 05-23-2023 Instructions Octavio Reza MD - 05/23/2023 [...] antifungal shampoo [31,32]. documented in this encounter [facility] 05-23-2023 History of Presen t illness Narrative This note was created using Mobile Event Guideriter. Subjective Shereen Seals is a 77 year old female. Patient presents with: F/U 4 month: Labs prior SUBJECTIVE: Shereen Seals is a 77 year old year old lady here today for 4 month follow up appointment for review of medical conditions. Had low sugar this AM at 69. Able to get juice. Reviewed had bad experience at [facility]. Noted saw Dr. Lees. Working on [...] times daily before meals. As directed Insulin [place], Disposable, (BD ULTRA-FINE FADY PEN NEEDLE) 32 [...] the date of the service which included [id number] patient care, completing clinical documentation, obtaining and/or reviewing separately obtained history, performing a medically appropriate examination, counseling and educating the patient/family/caregiver, ordering medications, tests, or procedures, independently interpreting results (not separately reported), and communicating results to the patient/family/caregiver. Octavio Reza MD documented in this encounter [facility] 05-16-2023 Note HNO ID: [id number] Author: Anant Lees MD Service: ? Author Type: Physician Type: Progress Notes Filed: 05/16/2023 10:02 AM Note Text: Anant Lees MD Interventional Cardiology [address] [place] [address] Chief Complaint Patient presents with: New Patient: [...] injection (HumuLIN N,Deidra (more content not included)... [facility] 05-16-2023 History of Presen t illness Narrative Images from the original note were not included. Anant Lees MD Interventional Cardiology [address] [place] [address] Chief Complaint Patient presents with: New Patient: [...] time a week. 12 capsule 4 Insulin [place], Disposable, (BD ULTRA-FINE FADY PEN NEEDLE) 32 [...] ICD10: R00.2 Controlled well with beta-ariella Anant Lese MD Follow up planning: ONE YEAR Electronically signed by Anant Lees MD on May 16, 2023, 9:54 AM The above note was partially created using a dictation recognition software. A reasonable attempt has been made to correct any errors. documented in this encounter [facility] 03-01-2023 Miscellaneous Notes Okayed [facility] 01/17/23 NOV 05/23/23 Charisse Yu MA Patient [...] advise. Himanshu Bolden documented in this encounter [facility] 02-21-2023 Miscellaneous Notes Printed order and faxed to [facility] as requested. Phoned patient and aware order was faxed as requested. Filed order Fax order as requested Patient calling she had received her reminder from [facility] that she will need new order for 3 D mamm faxed to [phone]. Pending order to file. Please call patient when order has been faxed so she can schedule her appt at [facility]. Please advise documented in this encounter [facility] 01-17-2023 Note HNO ID: [id number] Author: Octavio Reza MD Service: ? Author Type: Physician Type: Progress Notes Filed: 02/21/2023 12:42 AM Note Text: This note was created using Mobile Event Guideriter. Subjective Shereen Seals is a 77 year [...] past. Noted had a terrible time with [facility] in the hospital. Was bad. Ended [...] by mouth once daily as needed. Insulin [place], Disposable, (BD ULTRA-FINE FADY PEN NEEDLE) 32 [...] kg () 02/15/2022 (more content not included)... [facility] 01-17-2023 Instructions Octavio Reza MD - 01/17/2023 [...] once a week. documented in this encounter [facility] 01-17-2023 History of Presen t illness Narrative This note was created using Mobile Event Guideriter. Subjective Shereen Seals is a 77 year [...] past. Noted had a terrible time with [facility] in the hospital. Was bad. Ended [...] by mouth once daily as needed. Insulin [place], Disposable, (BD ULTRA-FINE FADY PEN NEEDLE) 32 [...] which included preparing to see the patient, [id number] patient care, completing clinical documentation, obtaining and/or reviewing separately obtained history, performing a medically appropriate examination, counseling and educating the patient/family/caregiver, ordering medications, tests, or procedures, independently interpreting results (not separately reported), and communicating results to the patient/family/caregiver. Octavio Reza MD documented in this encounter [facility] 11-12-2022 Note HNO ID: [id number] Author: Davon Wolfe APRN.STRING TOP SEALER Service: ? Author Type: Nurse Practitioner Type: Progress Notes Filed: 11/12/2022 4:10 PM Note Text: SUBJECTIVE Shereen Seals is a 77 year old female here today for an Er follow up. Chief Complaint Patient presents with: ER F/U: [facility] ER 11/04/22 due to palpitations/weakness HPI Shereen Seals is a 77 year old female established patient of Dr. Reza who presents today for ER follow up. She was seen in ER at [facility] on 11/04/2022 for issues with palpitations and weakness. On oxygen from prior COVID-19 infection. Monitors with a pulse ox, noticing heart rate being low and more irregular and erratic with spo2 monitoring. Referred to see cardiology, following up with [facility], saw Oren in the past. [...] DM Code E10.8, E11.610 Insulin: Yes Insulin [place], Disposable, (BD ULTRA-FINE FADY PEN NEEDLE) 32 [...] PROBLEM LIST Chronic Obstructive Asthma With Exacerbation ([facility]) - 11/12/2022 Acute Respiratory Failure With Hypoxia ([facility]) - 11/12/2022 Paroxysmal Svt (Supraventricular Tachycardia) ([facility]) - 11/12/2022 Adverse Reaction to Hmg-Coa Reductase Inhibitor - 06/07/2022 Comment: Historical: see allergies Stasis Edema of Both Lower Extremities - 04/27/2018 Morbid Obesity With Bmi of 45.0-49.9, Adult ([facility]) - 04/18/2017 Asthma - 05/06/2014 Vitamin D Deficiency - 08/21/2010 Charcot Foot Due to Diabetes Mellitus ([facility]) Debility - 09/30/2009 Rosacea - 09/06/2007 Insomnia, Unspecified - 06/01/2007 Type I Diabetes Mellitus With Manifestations ([facility]) - 09/15/2005 Essential Hypertension - (more content not included)... [facility] 10-05-2022 Note HNO ID: [id number] Author: Davon Wolfe APRN.STRING TOP SEALER Service: ? Author Type: Nurse Practitioner Type: [...] a sore to her vaginal area. Saw ob/gyn in the past for this, Trudy Verma. Amoxicillin and hot compresses cleared this up in the past. Onset this time was about a week ago. Started with a painful hard lump to the outside skin of the vaginal area. Tried Keflex from ob/gyn due to concerns of medicaiton interactions with [...] by mouth once daily as needed. Insulin [place], Disposable, (BD ULTRA-FINE FADY PEN NEEDLE) 32 [...] Naprosyn [Naproxen] GI (more content not included)... [facility] 10-05-2022 History of Presen t illness Narrative [...] a sore to her vaginal area. Saw ob/gyn in the past for this, Trudy Verma. Amoxicillin and hot compresses cleared this up in the past. Onset this time was about a week ago. Started with a painful hard lump to the outside skin of the vaginal area. Tried Keflex from ob/gyn due to concerns of medicaiton interactions with [...] by mouth once daily as needed. Insulin [place], Disposable, (BD ULTRA-FINE FADY PEN NEEDLE) 32 [...] Morbid Obesity With Bmi of 45.0-49.9, Adult ([facility]) - 04/18/2017 Asthma - 05/06/2014 Vitamin D Deficiency - 08/21/2010 Charcot Foot Due to Diabetes Mellitus ([facility]) Debility - 09/30/2009 Rosacea - 09/06/2007 Insomnia, Unspecified - 06/01/2007 Type I Diabetes Mellitus With Manifestations ([facility]) - 09/15/2005 Essential Hypertension - 09/15/2005 Arthropathy [...] nursing note reviewed. Exam conducted with a chainstitch sewing machine operator present ( present in the room, ok [...] which included preparing to see the patient, [id number]-[id number] patient care, completing clinical documentation, obtaining and/or reviewing separately obtained history, performing a medically appropriate examination, counseling and educating the patient/family/caregiver, ordering medications, tests, or procedures, and care coordination (not separately reported). Return if symptoms worsen or fail to improve, for Keep next scheduled appointment.. RACHEL Romero documented in this encounter [facility] 10-05-2022 Miscellaneous Notes Noted. We can certainly take a look and decide on what is the best next steps for her. Patient phoned concerned the lump on labia spread to anus. Was seen in [facility] ER on 10-01 per pcp and PARADI TENDER recommendation for lump on labia. Reports ER [...] very concerned. Scheduled same day appt with Tim[facility] Feller. documented in this encounter [facility] 10-01-2022 Miscellaneous Notes Phoned patient and advised [...] larger, she needs to return to her PARADI TENDER to address the lump getting largerSounds like developing worsening cellulitis and probably abscess--might need incision and drainage if there is an abscess. If she is failing outpatient treatment with oral meds, might need IV antibiotics. Forwarding to Trudy Verma who had been following with her. documented in this encounter [facility] 09-30-2022 Miscellaneous Notes Spoke with patient. Given [...] OCTAVIO REZA MD Patient calling Trudy Verma MEDICAL INSURANCE CLAIMS SPECIALIST had her start Cephalexin 500 mg one capsule 4 times daily on 09/27 for her valvar issue and patient said 3 hours later she was noticing her heart was lower and she was more short of breath, her SPO2 was going down. She stopped it after 3 doses. She spoke to PARADI TENDER and restarted medication yesterday and had same reaction 3 hours later. She was asking PARADI TENDER to give her Bactrim rx, Trudy said no that is not what I want you to take. She was told to notify her PCP and see what antibiotic PCP wants to put her on. [facility] for her pharmacy. Please advise documented in this encounter [facility] 09-27-2022 Miscellaneous Notes Patient notified. Michelle Wu RN The following approved medication requests have been transmitted electronically. Requested Prescriptions Signed Prescriptions Disp Refills cephALEXin (KEFLEX) 500 mg capsule 28 capsule 0 Sig: Take 1 capsule by mouth four times daily for 7 days. Authorizing Provider: TRUDY VERMA Pharmacy Information Pharmacy Address Telephone [facility] [address] [place], [place] [id number] Cephalexin prescribed since Bactrim can raise her [...] Tierney Guajardo RN documented in this encounter [facility] 09-21-2022 Miscellaneous Notes Was addressed in OV. [...] that she is following now. Liliana with [facility] calling to see if there is a base rate or base rate sliding scale for the Lispro insulin and Aspart insulin . Please advise. Cayla Lynne LPN documented in this encounter [facility] 09-20-2022 Note HNO ID: [id number] Author: Octavio Reza MD Service: ? Author Type: Physician Type: Progress Notes Filed: 09/20/2022 11:26 PM Note Text: This note was created using Lingt. Subjective Shereen Seals is a 77 year [...] by mouth once daily as needed. Insulin [place], Disposable, (BD ULTRA-FINE FADY PEN NEEDLE) 32 [...] of 09/21/21: 175 (more content not included)... [facility] 09-14-2022 Miscellaneous Notes Patient notified. Destinee Sims LPN ----- Message from Octavio Reza MD sent at 09/14/2022 8:42 AM EST ----- CBC within normal limits documented in this encounter [facility] 09-07-2022 Note HNO ID: [id number] Author: Octavio Reza MD Service: ? Author Type: Physician Type: Progress Notes Filed: 09/20/2022 1:53 PM Note Text: This note was created using Mobile Event Guideriter. Subjective Shereen Seals is a 77 year [...] by mouth once daily as needed. Insulin [place], Disposable, (BD ULTRA-FINE FADY PEN NEEDLE) 32 [...] appearance. HENT: Cristopher (more content not included)... [facility] 09-07-2022 Instructions Octavio Reza MD - 09/07/2022 [...] sugar or dehydration. documented in this encounter [facility] 09-07-2022 History of Presen t illness Narrative This note was created using Mobile Event Guideriter. Subjective Shereen Seals is a 77 year [...] by mouth once daily as needed. Insulin [place], Disposable, (BD ULTRA-FINE FADY PEN NEEDLE) 32 [...] the date of the service which included [id number] patient care, completing clinical documentation, performing a medically appropriate examination, and counseling and educating the patient/family/caregiver. Octavio Reza MD documented in this encounter [facility] 09-01-2022 Miscellaneous Notes Noted Arleen Toure APRN.CNP Hubert from [facility] calling discharging patient from OT today patient has met all goals. documented in this encounter [facility] 09-01-2022 Miscellaneous Notes Rekha PT with [facility] called and is notified of providers message and instructions. She voices understanding. Parris Eckert RN Ok for [facility] plan, see below Rekha PT with [facility] called in her POC. She reports she [...] a confidential number. documented in this encounter [facility] 08-21-2022 Miscellaneous Notes Noted Hubert- OT- [facility] - reporting POC: saw patient today for OT ecci, and will see patient 1 x week for 3 weeks. documented in this encounter [facility] 08-17-2022 Instructions Octavio Reza MD - 08/17/2022 [...] at night too. documented in this encounter [facility] 08-17-2022 History of Presen t illness Narrative This note was created using Mobile Event Guideriter. Subjective Shereen Seals is a 77 year old female. Patient presents with: Hospital F/U: Follow up [facility] and [facility] discharge SUBJECTIVE: Shereen Seals is a 77 year old year old lady here today for follow up appointment for review of medical conditions. Discharged from [facility] after hospitalization at [facility] twice. Noted sugars have been running high since they changed her insulin at [facility]. Current probiotic causing constipation. Prefers Symbicort since [...] by mouth once daily as needed. Insulin [place], Disposable, (BD ULTRA-FINE FADY PEN NEEDLE) 32 [...] the date of the service which included rack-ty-dclk patient care, completing clinical documentation, obtaining and/or reviewing separately obtained history, performing a medically appropriate examination, counseling and educating the patient/family/caregiver, and ordering medications, tests, or procedures. Octavio Reza MD documented in this encounter [facility] 2022 Miscellaneous Notes Noted, agree Charisse, a nurse with [facility] calling to update Dr. Reza that pt's called and notified [facility] that he was to give pt 2 units of insulin according to sliding scale today, however he accidentally gave pt 6 units. Charisse states she instructed to give pt 2-3 crackers with peanut butter and a small glass of orange juice and check pt's blood sugar in approximately 30 minutes. Pt is also getting ready to eat lunch. was advised to call [facility] for any further concerns. No call back needed, if PCP agreeable with instructions given to pt's . Thank you. documented in this encounter [facility] 07-29-2022 Miscellaneous Notes noted Bonnie OT from [facility] calls and states that patient requested only a one time visit. They worked on home safety and equipment recommendations. Patient is overwhelmed currently and told Bonnie that if patient thinks she needs Bonnie again in a couple of weeks she will give her a call. Darlene Mena RN documented in this encounter [facility] 07-29-2022 Miscellaneous Notes This Sw sent message back to TAMARA 07/26/22 note, in regards to SW order. [facility] has their own SW that makes home visits. This Sw believes that [facility] was looking for order for their own Sw to go and see patient. This SW does not provide home visits. documented in this encounter [facility] 07-28-2022 Miscellaneous Notes Addended by: DAVON WOLFE on: 07/28/2022 10:31 AM Modules accepted: Orders If patient agreeable can wait and discuss endocrine versus PharmD referral at her follow up next week. Okay for a referral for SW per request in prior encounter, I will put in the order. From prior message: Marilyn YING calling from [facility] to report plan of care for patient and [facility] will visit patient 3 times a week for first week, 2 times a week for 2 weeks and 1 time a week for 3 weeks. senior care will work with patient on diabetes education and food education. Marilyn states that patient only takes medications when she wants to take medications. Patients blood sugars was in 400's on Tuesday, Tuesday 300's, and this morning 250. Patient is currently taking insulins they way she is supposed to to be taking them. Marilyn has been calling before each meal. [facility] faxed over updated medication list as [...] work with PharmD through [facility] instead of professional poker player. How are her sugars running? 3) Can reschedule follow up Renu calling back to check status on message below. Cayla Lynne LPN Renu, a [facility] nurse calling Dr. Reza with a couple [...] she did not see eye-to-eye with past professional poker player. Lastly, during this call, this nurse noted pt was to have appt with PCP today but pt states she was not told about this appt. Please advise Renu at [phone]. Thank you. documented in this encounter [facility] 07-28-2022 Miscellaneous Notes Patient has been identified [...] Cecy Brush LPN documented in this encounter [facility] 07-26-2022 Miscellaneous Notes Noted, agree David PT calling from [facility] to report plan of care for patient and physical therapy will visit patient 2 times a week for 3 weeks. Physical therapy will work with patient on functional mobility training. No Call back needed if agreeable, Darlene Mena RN documented in this encounter [facility] 07-19-2022 Miscellaneous Notes Below noted Patient was [...] she gets plenty of liquids. Urine is snorkelling instructor now. Does have a moist cough, but improved since hospital stay. No fever. BS this morning 229, which is much improved since hospital (BS ran 400's). Patient reports her fingers have been cold when taking POX reading, and will make sure they are warm before checking POX. Also has pink fingernail mongolian on, and will remove from one finger [...] Please advise patient. documented in this encounter [facility] 07-16-2022 Miscellaneous Notes Reason for Call: elevated blood sugar of 304, disoriented, sob, 02 sat is 86-89% while using oxygen Outcome: Pt and her both advised to call 911 now. They both agree. Reason for Disposition Acting confused (e.g., disoriented, slurred speech) Protocols used: Diabetes - High Blood [id number]-[id number]-SD Pt reports her blood sugar was elevated [...] call 911 now. documented in this encounter [facility] 06-21-2022 Miscellaneous Notes Last office visit: 05/18/22 [...] patient. Payton Soliman documented in this encounter [facility] 06-07-2022 History of Presen t illness Narrative [...] Vladimir Kitchen Associated attestation - Narendra Nolasco, [facility] - 06/07/2022 3:49 PM EST The patient's [...] MEd, BCPS, CDCES documented in this encounter [facility] 06-07-2022 Miscellaneous Notes Noted, agree. Come in [...] Pattie Giles RN documented in this encounter [facility] 05-18-2022 Miscellaneous Notes Ordered during appointment Pt has an appointment with provider on 05/18/22. Pt is asking if provider wanted labs ordered. Please call Pt once labs are placed. documented in this encounter [facility] 05-18-2022 History of Presen t illness Narrative This note was created using Mobile Event Guideriter. Subjective Shereen Seals is a 76 year [...] Swelling overall controlled Follows with Dr. Marin (drier attendant) every 2 months. Has HCDPOA and LW. [...] 1 capsule by mouth twice daily. Insulin [place], Disposable, (BD ULTRA-FINE FADY PEN NEEDLE) 32 [...] Octavio Reza MD documented in this encounter [facility] 04-03-2022 Miscellaneous Notes See previous TE with same request for vials. Awaiting insurance authorization to dispense. Pattie Giles RN Patient call sent from [facility] as a refill, but when speaking with patient she said her late night shots with Humalin are a nightmare and would like to go back on vials. Please address this with patient. Call sent to triage nurse after speaking with patient. documented in this encounter [facility] 04-03-2022 Miscellaneous Notes Pt calling with request for a prescription for Humalog Vials. Patient denies any new or worsening symptoms of which a provider is not aware: Yes. Conference pt to Dr. Reza's office for state tested nursing assistant with prescription. documented in this encounter [facility] 03-31-2022 Miscellaneous Notes The following approved medication [...] Asmita Tapia RN documented in this encounter [facility] 02-15-2022 Instructions Lydia Grande APRN.CNS - 02/15/2022 3:06 PM EDT Decrease caffeine intake. Drink plenty of fluids. Think about the CGM - continuous glucose monitor. documented in this encounter [facility] 02-15-2022 History of Presen t illness Narrative [...] Both Lower Extremities She was seen at [facility] emergency department on February 11, 2022 [...] to follow-up with PCP as needed. Sees [facility] provider, Areli Estevez. HTN: She [...] HENT: Head: Normocephalic and atraumatic. Mouth/Throat: Lips: Lequire. Mouth: Mucous membranes are moist. Eyes: Conjunctiva/sclera: [...] DM Code E10.8, E11.610 Insulin: Yes Insulin [place], Disposable, (BD ULTRA-FINE FADY PEN NEEDLE) 32 [...] Lydia Grande APRN.MADELIN documented in this encounter [facility] 02-11-2022 Miscellaneous Notes Noted Reasonable for her to have her handle attacher decide on plan of care for noted [...] Patient said she was going to call Sewer Line Photo Inspector office, Dr Lott before she would go to the ER. documented in this encounter [facility] 01-21-2022 Miscellaneous Notes Order faxed to [facility] scheduling. ok Patient calls and is asking about mammogram order. Please place order and fax to [facility]. Please review and advise, Darlene Mena RN documented in this encounter [facility] 01-11-2022 History of Presen t illness Narrative Images from the original note were not included. This note was created using Sailogyter. Subjective Shereen Seals is a 76 year [...] Lantus, not Basaglar per patient preference Insulin [place], Disposable, (cafegive-FINE FADY PEN NEEDLE) 32 gauge x Use [...] Octavio Reza MD documented in this encounter [facility] 12-23-2021 History of Presen t illness Narrative This note was created using Mobile Event Guideriter. Subjective Patient presents with: Abdominal Pain PCP [...] Morbid Obesity With Bmi of 45.0-49.9, Adult ([facility]) Stasis Edema of Both Lower Extremities Current [...] Lantus, not Basaglar per patient preference Insulin [place], Disposable, (BD ULTRA-FINE FADY PEN NEEDLE) 32 [...] (FLONASE) 50 mcg/actuation nasal spray Use 1 Lyle in each nostril once daily. (Patient not [...] Guillermo Maurer MD documented in this encounter [facility] 12-17-2021 Instructions Kristyn Flores - 12/17/2021 1:22 [...] increases, despite treatment. Copyright 1994 by WAlexia RedLasso documented in this encounter [facility] 12-17-2021 History of Presen t illness Narrative [...] history is provided by the patient. No foreign language stenographer was used. Arm Pain The pain is [...] (FLONASE) 50 mcg/actuation nasal spray Use 1 Lyle in each nostril once daily. blood sugar [...] Lantus, not Basaglar per patient preference Insulin [place], Disposable, (BD ULTRA-FINE FADY PEN NEEDLE) 32 [...] AP/LAT RIGHT Radiologist IMPRESSION: No acute process. Well Service Floorperson: EVIE Transcribe Date/Time: Dec 17 2021 1:44P Dictated by : CECY REYES MD - X-ray is negative for fracture. - Wear compression wrap and sling as needed for comfort. May remove at night. - Take Ibuprofen as needed for pain. - Follow up with orthopedics if pain worsens or persists past 3 days. - CONSULT PANEL TO ORTHOPAEDICS RENATA Prado student TEACHING PROVIDER (Physician/PA/BALANCE WHEEL FACER) NOTE OF PERSONAL INVOLVEMENT IN CARE: I have personally seen and examined the patient and performed the medical decision-making components. I have reviewed the Advanced Practice Registered Nurse (BALANCE WHEEL FACER) Student's documentation and verified the findings in the note as written. Any additions or changes are noted in bold/italics. Signature: Wanda Phillips Date: 12/17/2021 Time: 2:06 PM documented in this encounter [facility] 12-17-2021 Miscellaneous Notes noted, agree should be seen Patient calling with request for an x ray of her arm. She states she strained her upper arm when she lifted a heavy pot of water. She feels pain in the bicep area of her right arm. Advised Urgent Care evaluation. She is agreeable. Rochelle M Lentine, RN documented in this encounter [facility] 12-16-2021 History of Presen t illness Narrative [...] 2021 9:40 AM documented in this encounter [facility] 12-16-2021 Miscellaneous Notes Verified name and date of . Patient phones requesting refills as follows: Pending Prescriptions Disp Refills BUDESONIDE-FORMOTEROL HFA 160 MCG-4.5 MCG/ACTUATION AEROSOL INHALER 1 Each 5 Sig: Inhale 2 Puffs as instructed twice daily. VITALY: No Verified pharmacy to be reordered at. Please review and advise. Eleni Serrano LPN documented in this encounter [facility] 12-04-2021 Miscellaneous Notes Noted, agree should see [...] will call back. documented in this encounter [facility] 11-06-2021 Miscellaneous Notes Spoke to Dr Carmichael and updated patient on results, To repeat colonoscopy in 5 years. Patient called asking for results from colonoscopy. [phone] documented in this encounter [facility] 10-29-2021 Nurse Note Abdomen soft non-distended. Will continue to monitor. [facility] NURSING HAND OFF NOTE SBAR Hand off given to Eris Mena RN. Hand off was communicated verbally and at the patient's bedside and all questions were answered. Amanda Santiago RN documented in this encounter [facility] 10-29-2021 History and physical note Images from [...] (FLONASE) 50 mcg/actuation nasal spray Use 1 Lyle in each nostril once daily. blood sugar [...] Lantus, not Basaglar per patient preference Insulin [place], Disposable, (BD ULTRA-FINE FADY PEN NEEDLE) 32 [...] entered by the nurse and reviewed by fl Nursing Notes: Serina Catherine RN 09/21/2021 3:38 [...] TIME: 7:53 AM documented in this encounter [facility] 10-27-2021 Miscellaneous Notes Spoke with patient on [...] Rakel Agosto LPN documented in this encounter [facility] 10-27-2021 Miscellaneous Notes noted, recent BPs were [...] Radha Lacy RN documented in this encounter [facility] 10-26-2021 Miscellaneous Notes Patient was notified of [...] Cayla Lynne LPN documented in this encounter [facility] 10-26-2021 Miscellaneous Notes Spoke with pt and [...] prior to procedure. Please advise patient. PH: [phone]. Thank you. documented in this encounter [facility] 10-22-2021 Miscellaneous Notes Patient has been identified [...] Asmita Tapia RN documented in this encounter [facility] 09-22-2021 Miscellaneous Notes 10-29-2021 Colon [facility] documented in this encounter [facility] 09-11-2021 History of Presen t illness Narrative This note was created using [employer]. Subjective Shereen Seals is a 76 year [...] (FLONASE) 50 mcg/actuation nasal spray Use 1 Lyle in each nostril once daily. blood sugar [...] Lantus, not Basaglar per patient preference Insulin [place], Disposable, (BD ULTRA-FINE FADY PEN NEEDLE) 32 [...] Octavio Reza MD documented in this encounter [facility] documented as of this encounter (statuses as of 10/22/2021) [facility] History of Past illness Narrative* Problem Noted Date Resolved Date OVERWEIGHT 05/11/2021 Last Assessment & Plan: Has made dietary changes since recent hospitalization, decreased carbs, feels better, plans to work harder on wt loss. Getting 3 wheeled bike so she can go on trails, not just exercise bike indoors. documented as of this encounter (statuses as of 10/26/2021) [facility] of Past illness Narrative* Problem Noted Date Resolved Date OVERWEIGHT 05/11/2021 Last Assessment & Plan: Has made dietary changes since recent hospitalization, decreased carbs, feels better, plans to work harder on wt loss. Getting 3 wheeled bike so she can go on trails, not just exercise bike indoors. documented as of this encounter (statuses as of 10/27/2021) [facility] of Past illness Narrative* Problem Noted Date Resolved Date OVERWEIGHT 05/11/2021 Last Assessment & Plan: Has made dietary changes since recent hospitalization, decreased carbs, feels better, plans to work harder on wt loss. Getting 3 wheeled bike so she can go on trails, not just exercise bike indoors. documented as of this encounter (statuses as of 10/30/2021) [facility] of Past illness Narrative* Problem Noted Date Resolved Date OVERWEIGHT 05/11/2021 Last Assessment & Plan: Has made dietary changes since recent hospitalization, decreased carbs, feels better, plans to work harder on wt loss. Getting 3 wheeled bike so she can go on trails, not just exercise bike indoors. documented as of this encounter (statuses as of 11/02/2021) [facility] of Past illness Narrative* Problem Noted Date Resolved Date OVERWEIGHT 05/11/2021 Last Assessment & Plan: Has made dietary changes since recent hospitalization, decreased carbs, feels better, plans to work harder on wt loss. Getting 3 wheeled bike so she can go on trails, not just exercise bike indoors. documented as of this encounter (statuses as of 11/06/2021) [facility] of Past illness Narrative* Problem Noted Date Resolved Date OVERWEIGHT 05/11/2021 Last Assessment & Plan: Has made dietary changes since recent hospitalization, decreased carbs, feels better, plans to work harder on wt loss. Getting 3 wheeled bike so she can go on trails, not just exercise bike indoors. documented as of this encounter (statuses as of 12/07/2021) [facility] of Past illness Narrative* Problem Noted Date Resolved Date OVERWEIGHT 05/11/2021 Last Assessment & Plan: Has made dietary changes since recent hospitalization, decreased carbs, feels better, plans to work harder on wt loss. Getting 3 wheeled bike so she can go on trails, not just exercise bike indoors. documented as of this encounter (statuses as of 12/16/2021) [facility] of Past illness Narrative* Problem Noted Date Resolved Date OVERWEIGHT 05/11/2021 Last Assessment & Plan: Has made dietary changes since recent hospitalization, decreased carbs, feels better, plans to work harder on wt loss. Getting 3 wheeled bike so she can go on trails, not just exercise bike indoors. documented as of this encounter (statuses as of 12/16/2021) [facility] of Past illness Narrative* Problem Noted Date Resolved Date OVERWEIGHT 05/11/2021 Last Assessment & Plan: Has made dietary changes since recent hospitalization, decreased carbs, feels better, plans to work harder on wt loss. Getting 3 wheeled bike so she can go on trails, not just exercise bike indoors. documented as of this encounter (statuses as of 12/17/2021) [facility] of Past illness Narrative* Problem Noted Date Resolved Date OVERWEIGHT 05/11/2021 Last Assessment & Plan: Has made dietary changes since recent hospitalization, decreased carbs, feels better, plans to work harder on wt loss. Getting 3 wheeled bike so she can go on trails, not just exercise bike indoors. documented as of this encounter (statuses as of 12/17/2021) [facility] of Past illness Narrative* Problem Noted Date Resolved Date OVERWEIGHT 05/11/2021 Last Assessment & Plan: Has made dietary changes since recent hospitalization, decreased carbs, feels better, plans to work harder on wt loss. Getting 3 wheeled bike so she can go on trails, not just exercise bike indoors. documented as of this encounter (statuses as of 12/17/2021) [facility] of Past illness Narrative* Problem Noted Date Resolved Date OVERWEIGHT 05/11/2021 Last Assessment & Plan: Has made dietary changes since recent hospitalization, decreased carbs, feels better, plans to work harder on wt loss. Getting 3 wheeled bike so she can go on trails, not just exercise bike indoors. documented as of this encounter (statuses as of 12/24/2021) [facility] of Past illness Narrative* Problem Noted Date Resolved Date OVERWEIGHT 05/11/2021 Last Assessment & Plan: Has made dietary changes since recent hospitalization, decreased carbs, feels better, plans to work harder on wt loss. Getting 3 wheeled bike so she can go on trails, not just exercise bike indoors. documented as of this encounter (statuses as of 01/04/2022) [facility] of Past illness Narrative* Problem Noted Date Resolved Date OVERWEIGHT 05/11/2021 Last Assessment & Plan: Has made dietary changes since recent hospitalization, decreased carbs, feels better, plans to work harder on wt loss. Getting 3 wheeled bike so she can go on trails, not just exercise bike indoors. documented as of this encounter (statuses as of 01/21/2022) [facility] of Past illness Narrative* Problem Noted Date Resolved Date OVERWEIGHT 05/11/2021 Last Assessment & Plan: Has made dietary changes since recent hospitalization, decreased carbs, feels better, plans to work harder on wt loss. Getting 3 wheeled bike so she can go on trails, not just exercise bike indoors. documented as of this encounter (statuses as of 02/11/2022) [facility] of Past illness Narrative* Problem Noted Date Resolved Date OVERWEIGHT 05/11/2021 Last Assessment & Plan: Has made dietary changes since recent hospitalization, decreased carbs, feels better, plans to work harder on wt loss. Getting 3 wheeled bike so she can go on trails, not just exercise bike indoors. documented as of this encounter (statuses as of 02/15/2022) [facility] of Past illness Narrative* Problem Noted Date Resolved Date OVERWEIGHT 05/11/2021 Last Assessment & Plan: Has made dietary changes since recent hospitalization, decreased carbs, feels better, plans to work harder on wt loss. Getting 3 wheeled bike so she can go on trails, not just exercise bike indoors. documented as of this encounter (statuses as of 03/14/2022) [facility] of Past illness Narrative* Problem Noted Date Resolved Date OVERWEIGHT 05/11/2021 Last Assessment & Plan: Has made dietary changes since recent hospitalization, decreased carbs, feels better, plans to work harder on wt loss. Getting 3 wheeled bike so she can go on trails, not just exercise bike indoors. documented as of this encounter (statuses as of 04/01/2022) [facility] of Past illness Narrative* Problem Noted Date Resolved Date OVERWEIGHT 05/11/2021 Last Assessment & Plan: Has made dietary changes since recent hospitalization, decreased carbs, feels better, plans to work harder on wt loss. Getting 3 wheeled bike so she can go on trails, not just exercise bike indoors. documented as of this encounter (statuses as of 04/03/2022) [facility] of Past illness Narrative* Problem Noted Date Resolved Date OVERWEIGHT 05/11/2021 Last Assessment & Plan: Has made dietary changes since recent hospitalization, decreased carbs, feels better, plans to work harder on wt loss. Getting 3 wheeled bike so she can go on trails, not just exercise bike indoors. documented as of this encounter (statuses as of 05/18/2022) [facility] of Past illness Narrative* Problem Noted Date Resolved Date OVERWEIGHT 05/11/2021 Last Assessment & Plan: Has made dietary changes since recent hospitalization, decreased carbs, feels better, plans to work harder on wt loss. Getting 3 wheeled bike so she can go on trails, not just exercise bike indoors. documented as of this encounter (statuses as of 06/07/2022) [facility] of Past illness Narrative* Problem Noted Date Resolved Date OVERWEIGHT 05/11/2021 Last Assessment & Plan: Has made dietary changes since recent hospitalization, decreased carbs, feels better, plans to work harder on wt loss. Getting 3 wheeled bike so she can go on trails, not just exercise bike indoors. documented as of this encounter (statuses as of 06/07/2022) [facility] of Past illness Narrative* Problem Noted Date Resolved Date OVERWEIGHT 05/11/2021 Last Assessment & Plan: Has made dietary changes since recent hospitalization, decreased carbs, feels better, plans to work harder on wt loss. Getting 3 wheeled bike so she can go on trails, not just exercise bike indoors. documented as of this encounter (statuses as of 06/14/2022) [facility] of Past illness Narrative* Problem Noted Date Resolved Date OVERWEIGHT 05/11/2021 Last Assessment & Plan: Has made dietary changes since recent hospitalization, decreased carbs, feels better, plans to work harder on wt loss. Getting 3 wheeled bike so she can go on trails, not just exercise bike indoors. documented as of this encounter (statuses as of 06/21/2022) [facility] Narrative* Problem Noted Date Resolved Date OVERWEIGHT 05/11/2021 Last Assessment & Plan: Has made dietary changes since recent hospitalization, decreased carbs, feels better, plans to work harder on wt loss. Getting 3 wheeled bike so she can go on trails, not just exercise bike indoors. documented as of this encounter (statuses as of 07/22/2022) [facility] of Past illness Narrative* Problem Noted Date Resolved Date OVERWEIGHT 05/11/2021 Last Assessment & Plan: Has made dietary changes since recent hospitalization, decreased carbs, feels better, plans to work harder on wt loss. Getting 3 wheeled bike so she can go on trails, not just exercise bike indoors. documented as of this encounter (statuses as of 07/27/2022) [facility] of Past illness Narrative* Problem Noted Date Resolved Date OVERWEIGHT 05/11/2021 Last Assessment & Plan: Has made dietary changes since recent hospitalization, decreased carbs, feels better, plans to work harder on wt loss. Getting 3 wheeled bike so she can go on trails, not just exercise bike indoors. documented as of this encounter (statuses as of 07/28/2022) [facility] of Past illness Narrative* Problem Noted Date Resolved Date OVERWEIGHT 05/11/2021 Last Assessment & Plan: Has made dietary changes since recent hospitalization, decreased carbs, feels better, plans to work harder on wt loss. Getting 3 wheeled bike so she can go on trails, not just exercise bike indoors. documented as of this encounter (statuses as of 07/28/2022) [facility] of Past illness Narrative* Problem Noted Date Resolved Date OVERWEIGHT 05/11/2021 Last Assessment & Plan: Has made dietary changes since recent hospitalization, decreased carbs, feels better, plans to work harder on wt loss. Getting 3 wheeled bike so she can go on trails, not just exercise bike indoors. documented as of this encounter (statuses as of 07/29/2022) [facility] Narrative* Problem Noted Date Resolved Date OVERWEIGHT 05/11/2021 Last Assessment & Plan: Has made dietary changes since recent hospitalization, decreased carbs, feels better, plans to work harder on wt loss. Getting 3 wheeled bike so she can go on trails, not just exercise bike indoors. documented as of this encounter (statuses as of 2022) [facility] of Past illness Narrative* Problem Noted Date Resolved Date OVERWEIGHT 05/11/2021 Last Assessment & Plan: Has made dietary changes since recent hospitalization, decreased carbs, feels better, plans to work harder on wt loss. Getting 3 wheeled bike so she can go on trails, not just exercise bike indoors. documented as of this encounter (statuses as of 08/23/2022) [facility] of Past [facility] Narrative* Problem Noted Date Resolved Date OVERWEIGHT 05/11/2021 Last Assessment & Plan: Has made dietary changes since recent hospitalization, decreased carbs, feels better, plans to work harder on wt loss. Getting 3 wheeled bike so she can go on trails, not just exercise bike indoors. documented as of this encounter (statuses as of 09/01/2022) [facility] Narrative* Problem Noted Date Resolved Date OVERWEIGHT 05/11/2021 Last Assessment & Plan: Has made dietary changes since recent hospitalization, decreased carbs, feels better, plans to work harder on wt loss. Getting 3 wheeled bike so she can go on trails, not just exercise bike indoors. documented as of this encounter (statuses as of 09/02/2022) [facility] Narrative* Problem Noted Date Resolved Date OVERWEIGHT 05/11/2021 Last Assessment & Plan: Has made dietary changes since recent hospitalization, decreased carbs, feels better, plans to work harder on wt loss. Getting 3 wheeled bike so she can go on trails, not just exercise bike indoors. documented as of this encounter (statuses as of 09/08/2022) [facility] Narrative* Problem Noted Date Resolved Date OVERWEIGHT 05/11/2021 Last Assessment & Plan: Has made dietary changes since recent hospitalization, decreased carbs, feels better, plans to work harder on wt loss. Getting 3 wheeled bike so she can go on trails, not just exercise bike indoors. documented as of this encounter (statuses as of 09/14/2022) [facility] Narrative* Problem Noted Date Resolved Date OVERWEIGHT 05/11/2021 Last Assessment & Plan: Has made dietary changes since recent hospitalization, decreased carbs, feels better, plans to work harder on wt loss. Getting 3 wheeled bike so she can go on trails, not just exercise bike indoors. documented as of this encounter (statuses as of 09/20/2022) [facility] Narrative* Problem Noted Date Resolved Date OVERWEIGHT 05/11/2021 Last Assessment & Plan: Has made dietary changes since recent hospitalization, decreased carbs, feels better, plans to work harder on wt loss. Getting 3 wheeled bike so she can go on trails, not just exercise bike indoors. documented as of this encounter (statuses as of 09/21/2022) [facility] Narrative* Problem Noted Date Resolved Date OVERWEIGHT 05/11/2021 Last Assessment & Plan: Has made dietary changes since recent hospitalization, decreased carbs, feels better, plans to work harder on wt loss. Getting 3 wheeled bike so she can go on trails, not just exercise bike indoors. documented as of this encounter (statuses as of 09/27/2022) [facility] Narrative* Problem Noted Date Resolved Date OVERWEIGHT 05/11/2021 Last Assessment & Plan: Has made dietary changes since recent hospitalization, decreased carbs, feels better, plans to work harder on wt loss. Getting 3 wheeled bike so she can go on trails, not just exercise bike indoors. documented as of this encounter (statuses as of 10/01/2022) [facility] Narrative* Problem Noted Date Resolved Date OVERWEIGHT 05/11/2021 Last Assessment & Plan: Has made dietary changes since recent hospitalization, decreased carbs, feels better, plans to work harder on wt loss. Getting 3 wheeled bike so she can go on trails, not just exercise bike indoors. documented as of this encounter (statuses as of 10/01/2022) [facility] Narrative* Problem Noted Date Resolved Date OVERWEIGHT 05/11/2021 Last Assessment & Plan: Has made dietary changes since recent hospitalization, decreased carbs, feels better, plans to work harder on wt loss. Getting 3 wheeled bike so she can go on trails, not just exercise bike indoors. documented as of this encounter (statuses as of 10/05/2022) [facility] Narrative* Problem Noted Date Resolved Date OVERWEIGHT 05/11/2021 Last Assessment & Plan: Has made dietary changes since recent hospitalization, decreased carbs, feels better, plans to work harder on wt loss. Getting 3 wheeled bike so she can go on trails, not just exercise bike indoors. documented as of this encounter (statuses as of 10/07/2022) [facility] Narrative* Problem Noted Date Diagnosed Date Resolved Date OVERWEIGHT 05/11/2021 Last Assessment & Plan: Has made dietary changes since recent hospitalization, decreased carbs, feels better, plans to work harder on wt loss. Getting 3 wheeled bike so she can go on trails, not just exercise bike indoors. documented as of this encounter (statuses as of 02/21/2023) [facility] Narrative* Problem Noted Date Diagnosed Date Resolved Date OVERWEIGHT 05/11/2021 Last Assessment & Plan: Has made dietary changes since recent hospitalization, decreased carbs, feels better, plans to work harder on wt loss. Getting 3 wheeled bike so she can go on trails, not just exercise bike indoors. documented as of this encounter (statuses as of 02/21/2023) [facility] Narrative* Problem Noted Date Diagnosed Date Resolved Date OVERWEIGHT 05/11/2021 Last Assessment & Plan: Has made dietary changes since recent hospitalization, decreased carbs, feels better, plans to work harder on wt loss. Getting 3 wheeled bike so she can go on trails, not just exercise bike indoors. documented as of this encounter (statuses as of 03/01/2023) [facility] Past [facility] Narrative* Problem Noted Date Diagnosed Date Resolved Date OVERWEIGHT 05/11/2021 Last Assessment & Plan: Has made dietary changes since recent hospitalization, decreased carbs, feels better, plans to work harder on wt loss. Getting 3 wheeled bike so she can go on trails, not just exercise bike indoors. documented as of this encounter (statuses as of 05/16/2023) [facility] Narrative* Problem Noted Date Diagnosed Date Resolved Date OVERWEIGHT 05/11/2021 Last Assessment & Plan: Has made dietary changes since recent hospitalization, decreased carbs, feels better, plans to work harder on wt loss. Getting 3 wheeled bike so she can go on trails, not just exercise bike indoors. documented as of this encounter (statuses as of 06/15/2023) [facility] Narrative* Problem Noted Date Diagnosed Date Resolved Date OVERWEIGHT 05/11/2021 Last Assessment & Plan: Has made dietary changes since recent hospitalization, decreased carbs, feels better, plans to work harder on wt loss. Getting 3 wheeled bike so she can go on trails, not just exercise bike indoors. documented as of this encounter (statuses as of 06/23/2023) [facility] Narrative* Problem Noted Date Diagnosed Date Resolved Date OVERWEIGHT 05/11/2021 Last Assessment & Plan: Has made dietary changes since recent hospitalization, decreased carbs, feels better, plans to work harder on wt loss. Getting 3 wheeled bike so she can go on trails, not just exercise bike indoors. documented as of this encounter (statuses as of 06/24/2023) [facility] History of Past illness Narrative* Problem Noted Date Diagnosed Date Resolved Date OVERWEIGHT 05/11/2021 Last Assessment & Plan: Has made dietary changes since recent hospitalization, decreased carbs, feels better, plans to work harder on wt loss. Getting 3 wheeled bike so she can go on trails, not just exercise bike indoors. documented as of this encounter (statuses as of 06/26/2023) [facility] History of Past illness Narrative* Problem Noted Date Diagnosed Date Resolved Date OVERWEIGHT 05/11/2021 Last Assessment & Plan: Has made dietary changes since recent hospitalization, decreased carbs, feels better, plans to work harder on wt loss. Getting 3 wheeled bike so she can go on trails, not just exercise bike indoors. documented as of this encounter (statuses as of 09/01/2023) [facility] History of Past illness Narrative* Problem Noted Date Diagnosed Date Resolved Date OVERWEIGHT 05/11/2021 Last Assessment & Plan: Has made dietary changes since recent hospitalization, decreased carbs, feels better, plans to work harder on wt loss. Getting 3 wheeled bike so she can go on trails, not just exercise bike indoors. documented as of this encounter (statuses as of 09/05/2023) [facility] Screening for colon cancer Special screening for malignant neoplasms, colon [facility] Screening for colon cancer- Primary Special screening for malignant neoplasms, colon [facility] Diagnosis Type I diabetes mellitus [...] malignant neoplasms, colon [facility] Diagnosis Chest pain, unspecified type- Primary [facility] Diagnosis Chest pain, unspecified type [facility] Diagnosis Pain of right upper extremity- Primary [facility] Diagnosis Pain of upper abdomen- Primary Abdominal pain, other specified site Alternating constipation and diarrhea Other symptoms involving digestive system [facility] Diagnosis Breast cancer screening by mammogram- Primary Dense breasts Inconclusive mammogram [facility] Diagnosis Palpitations- Primary Encounter for immunization Need for other specified prophylactic vaccination against single bacterial disease [facility] Diagnosis 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)- Primary 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, not stated as uncontrolled Lipomas Vitamin D deficiency Unspecified vitamin D deficiency Insomnia, unspecified type [facility] Diagnosis 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, not stated as uncontrolled Charcot foot due to 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, not stated as uncontrolled [facility] Diagnosis Type I diabetes mellitus with [...] single bacterial disease [facility] Diagnosis 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)- Primary 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, not stated as uncontrolled Stress at home Unspecified family circumstance [facility] Diagnosis Pneumonia due to COVID-19 virus- Primary Hypoxemia 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, not stated as uncontrolled Moderate persistent asthma without complication Unspecified asthma [facility] Diagnosis Essential hypertension- Primary Unspecified essential hypertension Palpitations 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, not stated as uncontrolled [facility] Diagnosis Cellulitis of female genitalia Unspecified inflammatory disease of cervix, vagina, and vulva [facility] Diagnosis Labial abscess- Primary Other abscess of vulva Bradycardia Other specified cardiac dysrhythmias [facility] Diagnosis Psoriasis of scalp- Primary Other psoriasis Seborrheic dermatitis Seborrheic dermatitis, unspecified Essential hypertension Unspecified essential hypertension Palpitations History of delirium Personal history of other mental disorder documented in this encounter [facility]* Diagnosis Screening mammogram for breast cancer- Primary documented in this encounter [facility]* Diagnosis Palpitations documented in this encounter [facility] note* Diagnosis Paroxysmal SVT (supraventricular tachycardia)- Primary Paroxysmal supraventricular tachycardia Palpitations documented in this encounter [facility] note* Diagnosis Severe persistent asthma without complication documented in this encounter [facility] note* Diagnosis Severe persistent asthma without complication- Primary Obesity, Class III, BMI 40-49.9 (morbid obesity) (HCC) Morbid obesity documented in this encounter [facility] note* Diagnosis Type I diabetes mellitus [...] single bacterial disease documented in this encounter [facility] note* Diagnosis Polyarthralgia- Primary Pain in joint, multiple sites 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, not stated as uncontrolled Vitamin D deficiency Unspecified vitamin D deficiency Pain in finger of both hands documented in this encounter [facility] note* Diagnosis Polyarthralgia- Primary Pain in [...] Holland Carmichael MD [address] [place] [address] [facility] [address] [place] [address] Referral ID Status Reason Start Date Expiration Date V isits Requested Visits Authorized [id number] Closed Auto-Generate d Referral 09/22/2021 09/22/2022 1 1 [facility] for referral (narrative)* Outpatient Procedure (Routine) - Closed Specialty Diagnoses / Procedures Referred By Contac t Referred To Contact [facility] Diagnoses Screening for colon cancer Procedures COLONOSCOPY SCREENING COLONOSCOPY FLX DX W/COLLJ SPEC WHEN Holland Mercado MD [address] [place] [address] [facility] [address] [address] Referral ID Status Reason Start Date Expiration Date V isits Requested Visits Authorized [id number] Closed Auto-Generate d Referral 09/22/2021 09/22/2022 1 1 [facility] for referral (narrative)* Diagnostic Procedure Only (Routine) - Pending Review Specialty Diagnoses / Procedures Referred By Contac t Referred To Contact [facility] Diagnoses Breast cancer screening by mammogram Dense breasts Procedures KELLY SCREENING W MINAL SCREENING DIGITAL BREAST TOMOSYNTHESIS BI SCREENING MAMMOGRAPHY BI 2-VIEW BREAST INC CAD Lydia Grande, BALANCE WHEEL FACER.CONTAINER MAKER [address] [place] [address] [facility] [address] [place] [address] Referral ID Status Reason Start Date Expiration Date Visits Requested Visits Authorized [id number] Pending Review Auto-Generat ed Referral 01/21/2022 02/19/2023 1 1 T [facility] for referral (narrative)* Diagnostic Procedure Only (Routine) - Pending Review Specialty Diagnoses / Procedures Referred By Contac t Referred To Contact [facility] Diagnoses Screening mammogram for breast cancer Procedures KELLY SCREENING W MINAL SCREENING DIGITAL BREAST TOMOSYNTHESIS BI SCREENING MAMMOGRAPHY BI 2-VIEW BREAST INC CAD Octavio Reza MD [address] [place] [address] [facility] [address] [place] [address] Referral ID Status Reason Start Date Expiration Date Visits Requested Visits Authorized [id number] Pending Review Auto-Generat ed Referral 02/21/2023 03/22/2024 1 1 [facility] for referral (narrative)* Outpatient Procedure (Routine) - Closed Specialty Diagnoses / Procedures Referred By Contac t Referred To [facility] [place] Diagnoses Severe persistent asthma without complication Procedures NITRIC OXIDE, EXHALED NITRIC OXIDE GAS DETERMINATION Tierney Helm PA-C [address] [facility] [place] [address] [address] Referral ID Status Reason Start Date Expiration Date V isits Requested Visits Authorized [id number] Closed Auto-Generate d Referral 06/23/2023 07/22/2024 1 1 * Outpatient Procedure (Routine) - Closed Specialty Diagnoses / Procedures Referred By Contac t Referred To [facility] [place] Diagnoses Severe persistent asthma without complication Procedures SPIROMETRY BASELINE ONLY SPMTRY W/VC EXPIRATORY MYRON W/WO MXML VOL VNTJ Tierney Helm PA-C [address] [facility] [place] [address] [facility] [address] [place] [address] Referral ID Status Reason Start Date Expiration Date V isits Requested Visits Authorized [id number] Closed Auto-Generate d Referral 06/23/2023 07/17/2023 1 1 * Outpatient Procedure (Routine) - Closed Specialty Diagnoses / Procedures Referred By Contac t Referred To [facility] [place] Diagnoses Severe persistent asthma without complication Procedures OXIMETRY WITH AMBULATION NONINVASIVE EAR/PULSE OXIMETRY MULTIPLE Tierney Huber PA-C [address] [facility] [place] [address] [facility] [address] [place] [id number] Referral ID Status Reason Start Date Expiration Date V isits Requested Visits Authorized [id number] Closed Auto-Generate d Referral 06/23/2023 07/17/2023 1 1 [facility] for visit Narrative* Outpatient Procedure (Routine) - Closed Specialty Diagnoses / Procedures Referred By Belgica t Referred To Contact [facility] Diagnoses Screening for colon cancer Procedures COLONOSCOPY SCREENING COLONOSCOPY FLX DX W/COLLJ SPEC WHEN Holland Mercado MD [address] [address] [place] [address] [facility] [address] [address] Referral ID Status Reason Start Date Expiration Date V isits Requested Visits Authorized [id number] Closed Auto-Generate d Referral 09/22/2021 09/22/2022 1 1 [facility] Advance Directives No Advanced Directives Records FoundDocuments on File Type Date Recorded Patient Mink Farmer Expl anation Advance Directive(s) 09/30/2021 12:15 PM Documents on File Type Date Recorded Patient Mink Farmer Expl anation Advance Directive(s) 10/29/2021 7:15 AM Advance Directive(s) 09/30/2021 12:15 PM Documents on File Type Date Recorded Patient Mink Farmer Expl anation Advance Directive(s) 10/29/2021 7:15 AM [...] screening Procedures CONSULT TO GENERAL SURGERY OFFICE/OUTPATIENT [facility] 60-74 MINUTES Octavio Reza MD [address] [place] [id number] Holland Carmichael MD [address] [place] [phone] Referral ID Status Reason Start Date Expiration Date Visits Requested Visits Authorized [id number] Pending Review PCP Requested Referral 09/11/2021 09/11/2022 1 1 Specialty Diagnoses / Procedures Referred By Contac t Referred To Contact Orthopedics Diagnoses Pain of right upper extremity Procedures CONSULT PANEL TO ORTHOPAEDICS OFFICE/OUTPATIENT [facility] 60-74 MINUTES Wanda Phillips APRN.STRING TOP SEALER [address] [place] [address] Referral ID Status Reason Start Date Expiration Date Visits Requested Visits Authorized [id number] Pending Review PCP Requested Referral 12/17/2021 12/17/2022 1 1 Specialty Diagnoses / Procedures Referred By Contac t Referred To Contact [facility] Diagnoses Pain of right upper extremity Procedures XR HUMERUS 2V AP/LAT RIGHT RADEX HUMERUS MINIMUM 2 VIEWS Wanda Phillips APRN.[employer] SEALER [address] [place] [address] [facility] Referral ID Status Reason Start Date Expiration Date V isits Requested Visits Authorized [id number] Closed Auto-Generate d Referral 12/17/2021 01/16/2023 1 1 Referral ID Status Reason Start Date Expiration Date V isits Requested Visits Authorized [id number] Closed Auto-Generate d Referral 12/17/2021 01/16/2023 1 1 Specialty Diagnoses / Procedures Referred By Contac t Referred To Contact Octavio Reza MD [address] [place] [address] Referral ID Status Reason Start Date Expiration Date Visits Re quested Visits Authorized [id number] Closed 1 1 Referral ID Status Reason Start Date Expiration Date Visits Re quested Visits Authorized [id number] Closed 1 1 Specialty Diagnoses / Procedures Referred By Contac t Referred To Contact Rheumatology Diagnoses Polyarthralgia Pain in finger of both hands Elevated C-reactive protein (CRP) Elevated sedimentation rate Procedures CONSULT TO RHEUM/IMMUN DISEASE OFFICE/OUTPATIENT [facility] 60 MINUTES Lydia Grande APRN.MADELIN [address] [place] [address] Referral ID Status Reason Start Date Expiration Date Visits Requested Visits Authorized [id number] Authorized PCP Requested Referral 09/05/2023 09/04/2024 1 [...] or prosecute any alcohol or drug abuse patient.[facility] the event this information is protected by the Federal Confidentiality of Alcohol and Drug Abuse Patient Records regulations: The Federal rules restrict any use of the information to criminally investigate or prosecute any alcohol or drug abuse patient.[facility] the event this information is protected by the Federal Confidentiality of Alcohol and Drug Abuse Patient Records regulations: The Federal rules restrict any use of the information to criminally investigate or prosecute any alcohol or drug abuse patient.[facility] the event this information is protected by the Federal Confidentiality of Alcohol and Drug Abuse Patient Records regulations: The Federal rules restrict any use of the information to criminally investigate or prosecute any alcohol or drug abuse patient.[facility] the event this information is protected by the Federal Confidentiality of Alcohol and Drug Abuse Patient Records regulations: The Federal rules restrict any use of the information to criminally investigate or prosecute any alcohol or drug abuse patient.[facility] the event this information is protected by the Federal Confidentiality of Alcohol and Drug Abuse Patient Records regulations: The Federal rules restrict any use of the information to criminally investigate or prosecute any alcohol or drug abuse patient.[facility] the event this information is protected by the Federal Confidentiality of Alcohol and Drug Abuse Patient Records regulations: The Federal rules restrict any use of the information to criminally investigate or prosecute any alcohol or drug abuse patient.[facility] the event this information is protected by the Federal Confidentiality of Alcohol and Drug Abuse Patient Records regulations: The Federal rules restrict any use of the information to criminally investigate or prosecute any alcohol or drug abuse patient.[facility] the event this information is protected by the Federal Confidentiality of Alcohol and Drug Abuse Patient Records regulations: The Federal rules restrict any use of the information to criminally investigate or prosecute any alcohol or drug abuse patient.[facility] the event this information is protected by the Federal Confidentiality of Alcohol and Drug Abuse Patient Records regulations: The Federal rules restrict any use of the information to criminally investigate or prosecute any alcohol or drug abuse patient.[facility] the event this information is protected by the Federal Confidentiality of Alcohol and Drug Abuse Patient Records regulations: The Federal rules restrict any use of the information to criminally investigate or prosecute any alcohol or drug abuse patient.[facility] the event this information is protected by the Federal Confidentiality of Alcohol and Drug Abuse Patient Records regulations: The Federal rules restrict any use of the information to criminally investigate or prosecute any alcohol or drug abuse patient.[facility] the event this information is protected by the Federal Confidentiality of Alcohol and Drug Abuse Patient Records regulations: The Federal rules restrict any use of the information to criminally investigate or prosecute any alcohol or drug abuse patient.[facility] the event this information is protected by the Federal Confidentiality of Alcohol and Drug Abuse Patient Records regulations: The Federal rules restrict any use of the information to criminally investigate or prosecute any alcohol or drug abuse patient.[facility] the event this information is protected by the Federal Confidentiality of Alcohol and Drug Abuse Patient Records regulations: The Federal rules restrict any use of the information to criminally investigate or prosecute any alcohol or drug abuse patient.[facility] the event this information is protected by the Federal Confidentiality of Alcohol and Drug Abuse Patient Records regulations: The Federal rules restrict any use of the information to criminally investigate or prosecute any alcohol or drug abuse patient.[facility] the event this information is protected by the Federal Confidentiality of Alcohol and Drug Abuse Patient Records regulations: The Federal rules restrict any use of the information to criminally investigate or prosecute any alcohol or drug abuse patient.[facility] the event this information is protected by the Federal Confidentiality of Alcohol and Drug Abuse Patient Records regulations: The Federal rules restrict any use of the information to criminally investigate or prosecute any alcohol or drug abuse patient.[facility] the event this information is protected by the Federal Confidentiality of Alcohol and Drug Abuse Patient Records regulations: The Federal rules restrict any use of the information to criminally investigate or prosecute any alcohol or drug abuse patient.[facility] the event this information is protected by the Federal Confidentiality of Alcohol and Drug Abuse Patient Records regulations: The Federal rules restrict any use of the information to criminally investigate or prosecute any alcohol or drug abuse patient.[facility] the event this information is protected by the Federal Confidentiality of Alcohol and Drug Abuse Patient Records regulations: The Federal rules restrict any use of the information to criminally investigate or prosecute any alcohol or drug abuse patient.[facility] the event this information is protected by the Federal Confidentiality of Alcohol and Drug Abuse Patient Records regulations: The Federal rules restrict any use of the information to criminally investigate or prosecute any alcohol or drug abuse patient.[facility] the event this information is protected by the Federal Confidentiality of Alcohol and Drug Abuse Patient Records regulations: The Federal rules restrict any use of the information to criminally investigate or prosecute any alcohol or drug abuse patient.[facility] the event this information is protected by the Federal Confidentiality of Alcohol and Drug Abuse Patient Records regulations: The Federal rules restrict any use of the information to criminally investigate or prosecute any alcohol or drug abuse patient.[facility] the event this information is protected by the Federal Confidentiality of Alcohol and Drug Abuse Patient Records regulations: The Federal rules restrict any use of the information to criminally investigate or prosecute any alcohol or drug abuse patient.[facility] the event this information is protected by the Federal Confidentiality of Alcohol and Drug Abuse Patient Records regulations: The Federal rules restrict any use of the information to criminally investigate or prosecute any alcohol or drug abuse patient.[facility] the event this information is protected by the Federal Confidentiality of Alcohol and Drug Abuse Patient Records regulations: The Federal rules restrict any use of the information to criminally investigate or prosecute any alcohol or drug abuse patient.[facility] the event this information is protected by the Federal Confidentiality of Alcohol and Drug Abuse Patient Records regulations: The Federal rules restrict any use of the information to criminally investigate or prosecute any alcohol or drug abuse patient.[facility] the event this information is protected by the Federal Confidentiality of Alcohol and Drug Abuse Patient Records regulations: The Federal rules restrict any use of the information to criminally investigate or prosecute any alcohol or drug abuse patient.[facility] the event this information is protected by the Federal Confidentiality of Alcohol and Drug Abuse Patient Records regulations: The Federal rules restrict any use of the information to criminally investigate or prosecute any alcohol or drug abuse patient.[facility] the event this information is protected by the Federal Confidentiality of Alcohol and Drug Abuse Patient Records regulations: The Federal rules restrict any use of the information to criminally investigate or prosecute any alcohol or drug abuse patient.[facility] the event this information is protected by the Federal Confidentiality of Alcohol and Drug Abuse Patient Records regulations: The Federal rules restrict any use of the information to criminally investigate or prosecute any alcohol or drug abuse patient.[facility] the event this information is protected by the Federal Confidentiality of Alcohol and Drug Abuse Patient Records regulations: The Federal rules restrict any use of the information to criminally investigate or prosecute any alcohol or drug abuse patient.[facility] the event this information is protected by the Federal Confidentiality of Alcohol and Drug Abuse Patient Records regulations: The Federal rules restrict any use of the information to criminally investigate or prosecute any alcohol or drug abuse patient.[facility] the event this information is protected by the Federal Confidentiality of Alcohol and Drug Abuse Patient Records regulations: The Federal rules restrict any use of the information to criminally investigate or prosecute any alcohol or drug abuse patient.[facility] the event this information is protected by the Federal Confidentiality of Alcohol and Drug Abuse Patient Records regulations: The Federal rules restrict any use of the information to criminally investigate or prosecute any alcohol or drug abuse patient.[facility] the event this information is protected by the Federal Confidentiality of Alcohol and Drug Abuse Patient Records regulations: The Federal rules restrict any use of the information to criminally investigate or prosecute any alcohol or drug abuse patient.[facility] the event this information is protected by the Federal Confidentiality of Alcohol and Drug Abuse Patient Records regulations: The Federal rules restrict any use of the information to criminally investigate or prosecute any alcohol or drug abuse patient.[facility] SystemIn the event this information is protected by the Federal Confidentiality of Alcohol and Drug Abuse Patient Records regulations: The Federal rules restrict any use of the information to criminally investigate or prosecute any alcohol or drug abuse patient.[facility] SystemIn the event this information is protected by the Federal Confidentiality of Alcohol and Drug Abuse Patient Records regulations: The Federal rules restrict any use of the information to criminally investigate or prosecute any alcohol or drug abuse patient.[facility] SystemIn the event this information is protected by the Federal Confidentiality of Alcohol and Drug Abuse Patient Records regulations: The Federal rules restrict any use of the information to criminally investigate or prosecute any alcohol or drug abuse patient.[facility] SystemIn the event this information is protected by the Federal Confidentiality of Alcohol and Drug Abuse Patient Records regulations: The Federal rules restrict any use of the information to criminally investigate or prosecute any alcohol or drug abuse patient.[facility] SystemIn the event this information is protected by the Federal Confidentiality of Alcohol and Drug Abuse Patient Records regulations: The Federal rules restrict any use of the information to criminally investigate or prosecute any alcohol or drug abuse patient.[facility] SystemIn the event this information is protected by the Federal Confidentiality of Alcohol and Drug Abuse Patient Records regulations: The Federal rules restrict any use of the information to criminally investigate or prosecute any alcohol or drug abuse patient.[facility] SystemIn the event this information is protected by the Federal Confidentiality of Alcohol and Drug Abuse Patient Records regulations: The Federal rules restrict any use of the information to criminally investigate or prosecute any alcohol or drug abuse patient.[facility] SystemIn the event this information is protected by the Federal Confidentiality of Alcohol and Drug Abuse Patient Records regulations: The Federal rules restrict any use of the information to criminally investigate or prosecute any alcohol or drug abuse patient.[facility] SystemIn the event this information is protected by the Federal Confidentiality of Alcohol and Drug Abuse Patient Records regulations: The Federal rules restrict any use of the information to criminally investigate or prosecute any alcohol or drug abuse patient.[facility] SystemIn the event this information is protected by the Federal Confidentiality of Alcohol and Drug Abuse Patient Records regulations: The Federal rules restrict any use of the information to criminally investigate or prosecute any alcohol or drug abuse patient.[facility] SystemIn the event this information is protected by the Federal Confidentiality of Alcohol and Drug Abuse Patient Records regulations: The Federal rules restrict any use of the information to criminally investigate or prosecute any alcohol or drug abuse patient.[facility] SystemIn the event this information is protected by the Federal Confidentiality of Alcohol and Drug Abuse Patient Records regulations: The Federal rules restrict any use of the information to criminally investigate or prosecute any alcohol or drug abuse patient.[facility] SystemIn the event this information is protected by the Federal Confidentiality of Alcohol and Drug Abuse Patient Records regulations: The Federal rules restrict any use of the information to criminally investigate or prosecute any alcohol or drug abuse patient.[facility] SystemIn the event this information is protected by the Federal Confidentiality of Alcohol and Drug Abuse Patient Records regulations: The Federal rules restrict any use of the information to criminally investigate or prosecute any alcohol or drug abuse patient.[facility] SystemIn the event this information is protected by the Federal Confidentiality of Alcohol and Drug Abuse Patient Records regulations: The Federal rules restrict any use of the information to criminally investigate or prosecute any alcohol or drug abuse patient.[facility] SystemIn the event this information is protected by the Federal Confidentiality of Alcohol and Drug Abuse Patient Records regulations: The Federal rules restrict any use of the information to criminally investigate or prosecute any alcohol or drug abuse patient.[facility] SystemIn the event this information is protected by the Federal Confidentiality of Alcohol and Drug Abuse Patient Records regulations: The Federal rules restrict any use of the information to criminally investigate or prosecute any alcohol or drug abuse patient.[facility] SystemIn the event this information is protected by the Federal Confidentiality of Alcohol and Drug Abuse Patient Records regulations: The Federal rules restrict any use of the information to criminally investigate or prosecute any alcohol or drug abuse patient.[facility] SystemIn the event this information is protected by the Federal Confidentiality of Alcohol and Drug Abuse Patient Records regulations: The Federal rules restrict any use of the information to criminally investigate or prosecute any alcohol or drug abuse patient.[facility] SystemIn the event this information is protected by the Federal Confidentiality of Alcohol and Drug Abuse Patient Records regulations: The Federal rules restrict any use of the information to criminally investigate or prosecute any alcohol or drug abuse patient.[facility] SystemIn the event this information is protected by the Federal Confidentiality of Alcohol and Drug Abuse Patient Records regulations: The Federal rules restrict any use of the information to criminally investigate or prosecute any alcohol or drug abuse patient.[facility] Reason for Visit (unrecogniz ed section and [...] OT Reason Comments Hospital F/U Follow up [facility] and Av enue discharge Reason Comments Results Reason Comments Established Patient Reason Comments [facility] - medication question Reason Comments Vulvar problem Reason Comments Same Day Appointment lump in anus area x 1 week txd with antibiotics Reason Comments Lump on anus Reason Comments Follow Up 4 month Reason Comments patient asking for 3 D mamm order fax to [facility] Reason Comments Refill Request Reason Comments New Patient Palpitations Specialty Diagnoses / Procedures Referred By Contac t Referred To Contact Cardiology Diagnoses Palpitations Paroxysmal SVT (supraventricular tachycardia) Procedures CONSULT TO CARDIOLOGY OFFICE/OUTPATIENT NEW HIGH MDM 60-74 MINUTES Davon Wolfe APRN.[employer] [address] [place] [address] Referral ID Status Reason Start Date Expiration Date Visits Requested Visits Authorized [id number] Pending Review PCP Requested Referral 11/12/2022 11/12/2023 1 1 Reason Onset Date Comments Refill Request 06/14/2023 Reason Comments Spirometry Specialty Diagnoses / Procedures Referred By Contac t Referred To [facility] Diagnoses Severe persistent asthma without complication Procedures OXIMETRY WITH AMBULATION NONINVASIVE EAR/PULSE OXIMETRY MULTIPLE DETER Tierney Helm PA-C [address] [place] [address] [facility] [address] [place] [address] Referral ID Status Reason Start Date Expiration Date V isits Requested Visits Authorized [id number] Closed Auto-Generate d Referral 06/23/2023 07/17/2023 1 1 Specialty Diagnoses / Procedures Referred By Contac t Referred To Contact [facility] Diagnoses Severe persistent asthma without complication Procedures NITRIC OXIDE, EXHALED NITRIC OXIDE GAS DETERMINATION Tierney Helm PA-C [address] [place] [address] [facility] [address] [place] [address] Referral ID Status Reason Start Date Expiration Date V isits Requested Visits Authorized [id number] Closed Auto-Generate d Referral 06/23/2023 07/22/2024 1 1 Reason Comments Established Patient Reason Comments F/U 4 month Labs prior Reason Comments Pain All over pain. Reason Comments Results Care Teams (unrecognized sec tion and content) [employer] Supervisor Relationship Specialty Start Date End Date Octavio Reza MD [address] [place] [id number] PCP - General Internal Medicine 08/24/10 [employer] Supervisor Relationship Specialty Start Date End Date Octavio Reza MD [address] [place] [id number] PCP - General Internal Medicine 08/24/10 [employer] Supervisor Relationship Specialty Start Date End Date Octavio Reza MD [address] [place] [id number] PCP - General Internal Medicine 08/24/10 [employer] Supervisor Relationship Specialty Start Date End Date Ocatvio Reza MD [address] [place] [address] PCP - General Internal Medicine 08/24/10 [employer] Supervisor Relationship Specialty Start Date End Date Octavio Reza MD [address] [place] [id number] PCP - General Internal Medicine 08/24/10 [employer] Supervisor Relationship Specialty Start Date End Date Octavio Reza MD [address] [place] [address], [place] [address] PCP - General Internal Medicine 08/24/10 [employer] Supervisor Relationship Specialty Start Date End Date Octavio Reza MD [address] [place] [address], [place] [address] PCP - General Internal Medicine 08/24/10 [employer] Supervisor Relationship Specialty Start Date End Date Octavio Reza MD [address] [place] [address], [place] [address] PCP - General Internal Medicine 08/24/10 [employer] Supervisor Relationship Specialty Start Date End Date Octavio Reza MD [address] [place] [address], [place] [address] PCP - General Internal Medicine 08/24/10 [employer] Supervisor Relationship Specialty Start Date End Date Octavio Reza MD [address] [place] [address], [place] [address] PCP - General Internal Medicine 08/24/10 [employer] Supervisor Relationship Specialty Start Date End Date Octavio Reza MD [address] [place] [address], [place] [address] PCP - General Internal Medicine 08/24/10 [employer] Supervisor Relationship Specialty Start Date End Date Octavio Reza MD [address] [place] [address], [place] [address] PCP - General Internal Medicine 08/24/10 [employer] Supervisor Relationship Specialty Start Date End Date Octavio Reza MD [address] [place] [address], [place] [address] PCP - General Internal Medicine 08/24/10 [employer] Supervisor Relationship Specialty Start Date End Date Octavio Reza MD [address] [place] [address], [place] [address] PCP - General Internal Medicine 08/24/10 [employer] Supervisor Relationship Specialty Start Date End Date Octavio Reza MD [address] [place] [address], [place] [address] PCP - General Internal Medicine 08/24/10 [employer] Supervisor Relationship Specialty Start Date End Date Octavio Reza MD [address] [place] [address], [place] [address] PCP - General Internal Medicine 08/24/10 [employer] Supervisor Relationship Specialty Start Date End Date Octavio Reza MD [address] [place] [address], [place] [address] PCP - General Internal Medicine 08/24/10 [employer] Supervisor Relationship Specialty Start Date End Date Octavio Reza MD [address] [place] [address], [place] [address] PCP - General Internal Medicine 08/24/10 [employer] Supervisor Relationship Specialty Start Date End Date Octavio Reza MD [address] [place] [address], [place] [address] PCP - General Internal Medicine 08/24/10 [employer] Supervisor Relationship Specialty Start Date End Date Octavio Reza MD [address] [place] [address], [place] [address] PCP - General Internal Medicine 08/24/10 [employer] Supervisor Relationship Specialty Start Date End Date Octavio Reza MD [address] [place] [address], [place] [address] PCP - General Internal Medicine 08/24/10 [employer] Supervisor Relationship Specialty Start Date End Date Octavio Reza MD [address] [place] [address], [place] [address] PCP - General Internal Medicine 08/24/10 [employer] Supervisor Relationship Specialty Start Date End Date Octavio Reza MD [address] [place] [address] PCP - General Internal Medicine 08/24/10 [employer] Supervisor Relationship Specialty Start Date End Date Octavio Reza MD [address] [place] [address] PCP - General Internal Medicine 08/24/10 [employer] Supervisor Relationship Specialty Start Date End Date Octavio Reza MD [address] [place] [address] PCP - General Internal Medicine 08/24/10 [employer] Supervisor Relationship Specialty Start Date End Date Octavio Reza MD [address] [place] [address] PCP - General Internal Medicine 08/24/10 [employer] Supervisor Relationship Specialty Start Date End Date Octavio Reza MD [address] [place] [address] PCP - General Internal Medicine 08/24/10 [employer] Supervisor Relationship Specialty Start Date End Date Octavio Reza MD [address] [place] [address] PCP - General Internal Medicine 08/24/10 [employer] Supervisor Relationship Specialty Start Date End Date Octavio Reza MD [address] [place] [address] PCP - General Internal Medicine 08/24/10 [employer] Supervisor Relationship Specialty Start Date End Date Octavio Reza MD [address] [place] [address] PCP - General Internal Medicine 08/24/10 [employer] Supervisor Relationship Specialty Start Date End Date Octavio Reza MD [address] [facility] [place] [address] PCP - General Internal Medicine 08/24/10 [employer] Supervisor Relationship Specialty Start Date End Date Octavio Reza MD [address] [place], [place] [address] PCP - General Internal Medicine 08/24/10 [employer] Supervisor Relationship Specialty Start Date End Date Octavio Reza MD [address] [place], [place] [id number] PCP - General Internal Medicine 08/24/10 INFORMATION [...] BE BASED ON THE PRIMARY CLINICAL RECORDS. [employer] [facility]. provides no warranty or guarantee of the accuracy or completeness of information in this document.
[2023-09-16 20:17] VITALS: BP 116/58; PULSE 59; RESP 18; TEMP 36.2; O2SAT 98
== END 2023-09-16 20:20 | disposition home or self-care (01) ==
PROVIDERS: Emergency Provider Emergency Medicine; PCP Internal Medicine; Visit Provider Emergency Medicine
DX: R00.2 Palpitations (principal); I47.10 Supraventricular tachycardia, unspecified; G47.33 Obstructive sleep apnea (adult) (pediatric); Z87.891 Personal history of nicotine dependence; Z86.718 Personal history of other venous thrombosis and embolism
CPT/HCPCS: 99283; 80048; 84443; 85025; 93005

== ENCOUNTER → 2023-09-16 | Outpatient (CLI) | payer MEDICARE, SELFPAY ==
--- OUTSIDE RECORDS SUMMARY | 2023-09-16 18:50 | XMS RPT_ITS | CCD ---
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 Name Role Phone Lydia Cook Unavailable Unavailable Lydia Cook Unavailable Unavailable Nola YING, Bettina Worrell Unavailable Unavailable Octavio Reza MD Primary Care Provider Octavio Reza MD Primary Care Provider Octavio Reza MD Primary Care Provider DAVON WOLFE Attending Unavailable TALAMPAS, OCTAVIO D Primary Care Unavailable TALAMPAS, OCTAVIO D Primary Care Unavailable TALAMPAS, OCTAVIO D Attending Unavailable TALAMPAS, OCTAVIO D Primary Care Unavailable TALAMPAS, OCTAVIO D Referring Unavailable TIERNEY HELM Referring Unavailable TALAMPAS, OCTAVIO D Primary Care Unavailable TALAMPAS, OCTAVIO D Primary Care Unavailable DAVON WOLFE Referring Unavailable ANANT LEES Attending Unavailable DAVON WOLFE Attending Unavailable TALAMPAS, OCTAVIO D Primary Care Unavailable TALAMPAS, OCTAVIO D Primary Care Unavailable TALAMPAS, OCTAVIO D Attending Unavailable TIERNEY HELM Attending Unavailable TALAMPAS, OCTAVIO D Primary Care Unavailable TIERNEY HELM Referring Unavailable TALAMPAS, OCTAVIO D Primary Care Unavailable TIERNEY HELM Referring Unavailable TALAMPAS, OCTAVIO D Primary Care Unavailable TALAMPAS, OCTAVIO D Primary Care Unavailable LYDIA GRANDE Attending Unavailable LIBERTAD LYDIA Referring Unavailable TALAMPAS, OCTAVIO D Primary Care Unavailable TALAMPAS, OCTAVIO D Primary Care Unavailable TALAMPAS, OCTAVIO D Attending Unavailable TALAMPAS, OCTAVIO D Primary Care Unavailable TALAMPAS, OCTAVIO D Referring Unavailable TALAMPAS, OCTAVIO D Primary Care Unavailable TALAMPAS, OCTAVIO D Attending Unavailable OCTAVIO REZA Referring Unavailable Allergies Allergy Classification Reported Allergen(s) Allergy Type Date of Onset Reaction(s) Facility (3 sources) codeine drug allergy 2 nausea/vomiting [facility] Work Phone: (6 sources) NKA drug allergy 2 [facility] Work Phone: (20 sources) Acetaminophen / Codeine; Translations: [ACETAMINOPHEN-COD EINE] Drug Allergy 5 Vomiting [facility] Work Phone: (20 sources) Albuterol; Translations: [ALBUTEROL SULFATE] Drug Allergy 4 GI Upset, Vomiting [facility] Work Phone: (20 sources) aMILoride / hydroCHLOROthiazid e; Translations: [AMILORIDE-HYDROCH LOROTHIAZIDE] Drug Allergy 1 Other: See Comments [facility] Work Phone: [phone] (20 sources) atorvastatin; Translations: [ATORVASTATIN] Drug Allergy 5 Myalgia [facility] Work Phone: [phone] (20 sources) Escitalopram; Translations: [ESCITALOPRAM] Drug Allergy 3 Intolerance [facility] Work Phone: (20 sources) Naproxen; Translations: [NAPROXEN] Drug Allergy 5 GI Upset [facility] Work Phone: (20 sources) Pravastatin; Translations: [PRAVASTATIN] Drug Allergy 7 GI Upset [facility] Work Phone: (20 sources) rosuvastatin; Translations: [ROSUVASTATIN] Drug Allergy 1 Intolerance [facility] Work Phone: (20 sources) Simvastatin; Translations: [SIMVASTATIN] Drug Allergy 7 Myalgia [facility] Work Phone: (16 sources) Doxycycline; Translations: [DOXYCYCLINE] Drug Allergy 3 GI Upset [facility] Work Phone: [phone] Medications Current Medications Medication Drug Class(es) Dates Sig (Normalized) Sig (Original) amoxicillin 875 mg / clavulanate 125 mg oral tablet (4 sources) Penicillin-class Antibacterial Start: 09-30-2022 End: 10-10-2022 take 1 tablet by mouth twice daily amoxicillin-clav ulanic acid (AUGMENTIN) 875-125 mg per tablet Take 1 tablet by mouth twice daily for 10 days. 20 tablet 0 09/30/2022 10/10/2022 Active Completed/Discontinued Medications Medication Drug Class(es) Dates Sig (Normalized) Sig (Original) [id number] 200 actuat albuterol 0.09 mg/actuat metered dose inhaler (20 sources) beta2-Adrenergic Agonist Start: 06-09-2020 take 2 puff(s) by inhalation four times daily as needed for wheezing albuterol HFA (PROVENTIL HFA, VENTOLIN HFA) 90 mcg/actuation inhaler Indications: Uncomplicated severe persistent asthma Inhale 2 Puffs as instructed four times daily as needed. FOR WHEEZING AND SHORTNESS OF BREATH. 6.7 g 11 06/09/2020 Active Problems Active Problems Problem Classification Problem Date Documented Da te Episodic/Chronic Abdominal pain (1 source) Upper abdominal pain; Translations: [Upper abdominal pain, unspecified] Episodic Adjustment disorders (1 source) Family tension; Translations: [Reaction to severe stress, unspecified] Chronic Anxiety disorders (20 sources) Anxiety state; Translations: [Generalized anxiety disorder] 08-19-2020 Chronic Asthma (20 sources) Asthma; Translations: [Unspecified asthma, uncomplicated] Onset: 4 05-06-2014 Chronic Cardiac dysrhythmias (20 sources) Ventricular premature beats; Translations: [Paroxysmal supraventricular tachycardia] Onset: 2 03-15-2012 Chronic Chronic obstructive pulmonary disease and bronchiectasis (11 sources) Acute exacerbation of chronic obstructive airways disease with asthma; Translations: [Chronic obstructive pulmonary disease with (acute) exacerbation] Onset: 3 11-12-2022 Chronic Diabetes mellitus with complications (20 sources) Type 1 diabetes mellitus; Translations: [Type 1 diabetes mellitus with unspecified complications] Onset: 6 05-27-2015 Chronic Disorders of lipid metabolism (20 sources) Hyperlipidemia; Translations: [Hyperlipidemia, unspecified] Onset: 2 03-01-2012 Chronic Esophageal disorders (20 sources) Gastroesophageal reflux disease; Translations: [Gastro-esophageal reflux disease without esophagitis] 12-16-2005 Chronic Essential hypertension (20 sources) Hypertensive disorder; Translations: [Essential hypertension] Onset: 6 03-01-2012 Chronic Heart valve disorders (20 sources) Mitral valve prolapse; Translations: [Rheumatic mitral valve disease, unspecified] Onset: 2 Resolved: 7 11-19-2016 Chronic Mood disorders (20 sources) Depressive disorder; Translations: [Other specified depressive episodes] Onset: 3 12-16-2005 Chronic Nonspecific chest pain (8 sources) Chest pain, unspecified; Translations: [Chest pain] Onset: 2 Resolved: 7 11-19-2016 Episodic Nutritional deficiencies (20 sources) Vitamin D deficiency; Translations: [Vitamin D deficiency, unspecified] Onset: 1 08-21-2010 Chronic Other and unspecified benign neoplasm (1 source) Lipoma (clinical); Translations: [Benign lipomatous neoplasm, unspecified] Episodic Other bone disease and musculoskeletal deformities (20 sources) Disorder of skeletal system; Translations: [Disorder of bone, unspecified] 07-13-2021 Episodic Other connective tissue disease (1 source) Pain in right arm; Translations: [Pain in right arm] Episodic Other connective tissue disease (2 sources) Pain in fingers of bilateral hands; Translations: [Pain in left finger(s)] 09-01-2023 Episodic Other diseases of veins and lymphatics (20 sources) Bilateral lower limb edema; Translations: [Chronic venous hypertension (idiopathic) without complications of bilateral lower extremity] Onset: 8 04-27-2018 Chronic Other gastrointestinal disorders (1 source) Constipation alternates with diarrhea; Translations: [Other specified symptoms and signs involving the digestive system and abdomen] Episodic Other hematologic conditions (1 source) ESR raised; Translations: [Elevated erythrocyte sedimentation rate] 09-05-2023 Episodic Other inflammatory condition of skin (20 sources) Rosacea; Translations: [Rosacea, unspecified] Onset: 8 09-06-2007 Chronic Other inflammatory condition of skin (2 sources) Scalp psoriasis; 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, unspecified] 01-17-2023 Chronic Other inflammatory condition of skin (1 source) Psoriasis, unspecified; 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 of scalp] Onset: 3 Chronic Other inflammatory condition of skin (1 source) Seborrheic dermatitis; Translations: [Seborrheic dermatitis, unspecified] 01-17-2023 Episodic Other lower respiratory disease (1 source) Hypoxemia; Translations: [Hypoxemia] Episodic Other nervous system disorders (3 sources) Uifgcvw-Omfas-Jbzfo disease; 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 03-01-2012 Chronic Other non-traumatic joint disorders (20 sources) Arthropathy associated with a neurological disorder; Translations: [Charcot's joint, unspecified site] Onset: 6 11-27-2015 Chronic Other non-traumatic joint disorders (2 sources) Multiple joint pain; Translations: [Pain in unspecified joint] 09-01-2023 Episodic Other non-traumatic joint disorders (1 source) Pain in unspecified joint; Translations: [Polyarthralgia] Onset: 4 Episodic Other nutritional; endocrine; and metabolic disorders (8 sources) Body mass index (BMI) 50-59.9 , adult; Translations: [Body mass index (BMI) 45.0-49.9, adult] Onset: 3 11-22-2016 Chronic Other nutritional; endocrine; and metabolic disorders (20 sources) Body mass index 40+ - severely obese; Translations: [Morbid (severe) obesity due to excess calories] Onset: 7 09-09-2021 Chronic Other nutritional; endocrine; and metabolic disorders (1 source) Severe obesity; Translations: [Morbid (severe) obesity due to excess calories] 06-25-2023 Chronic Other nutritional; endocrine; and metabolic disorders (1 source) Morbid (severe) obesity due to excess calories; Translations: [Class 3 severe obesity due to excess calories with body mass index (BMI) of 45.0 to 49.9 in adult, unspecified whether serious comorbidity present (HCC)] Onset: 3 Chronic Other nutritional; endocrine; and metabolic disorders (1 source) Body mass index (BMI) 45.0-49.9, adult; Translations: [Class 3 severe obesity due to excess calories with body mass index (BMI) of 45.0 to 49.9 in adult, unspecified whether serious comorbidity present (HCC)] Onset: 3 Chronic Other screening for suspected conditions (not mental disorders or infectious disease) (11 sources) Patient encounter status; Translations: [Encounter for screening for malignant neoplasm of colon] Episodic Residual codes; unclassified (1 source) History of delirium; Translations: [Personal history of other specified conditions] 02-21-2023 Episodic Unclassified (1 source) Paroxysmal SVT (supraventricular tachycardia); Translations: [Paroxysmal SVT (supraventricular tachycardia)] Onset: 3 Viral infection (1 source) COVID-19; Translations: [Pneumonia due to other virus not elsewhere classified] Episodic Past or Other Problems Problem Classification Problem Date Documented Date Episodic/Chronic Cardiac dysrhythmias (16 sources) Palpitations; Translations: [Palpitations] Onset: 10-06-19 23 Episodic E Codes: Adverse effects of medical drugs (20 sources) HMG COA reductase inhibitor adverse reaction; Translations: [Adverse effect of antihyperlipidemic and antiarteriosclerotic drugs, initial encounter] Onset: 06-07-20 22 06-07-2022 Episodic Immunizations and screening for infectious disease (1 source) Encounter for immunization; Translations: [Encounter for immunization] Onset: 05-23-20 23 Episodic Inflammatory diseases of female pelvic organs (3 sources) Cellulitis; Translations: [Abscess of vulva] Onset: 10-06-19 23 Episodic Malaise and fatigue (20 sources) Asthenia; Translations: [Other malaise] Onset: 10-01-19 10 09-30-2009 Episodic Other aftercare (1 source) Other fci (current) drug therapy; Translations: [Encounter for long-term current use of medication] Onset: 05-16-20 Episodic Other lower respiratory disease (3 sources) Dyspnea; Translations: [Shortness of breath] Onset: 03-01-20 12 03-01-2012 Episodic Phlebitis; thrombophlebitis and thromboembolism (3 sources) Deep venous thrombosis of lower extremity; Translations: [Acute embolism and thrombosis of unspecified deep veins of left distal lower extremity] Onset: 11-20-19 17 11-19-2016 Episodic Residual codes; unclassified (20 sources) Insomnia; Translations: [Insomnia, unspecified] Onset: 06-01-20 07 06-01-2007 Episodic Respiratory failure; insufficiency; arrest (adult) (11 sources) Acute respiratory failure; Translations: [Acute respiratory failure with hypoxia] Onset: 11-13-19 23 11-12-2022 Episodic Results Test Name Value Interpretation Reference Range Facil ity Vital Signs Date Time Vital Sign Value Performing Clinician Facility 09-01-2023 12:05-0500 Body weight 156.49 kg Lydia Grande TECHNICAL PROJECT COORDINATOR.MEDICAL SERVICE TECHNICIAN Work Phone: [facility] 09-01-2023 12:05-0500 Diastolic blood pressure 74 mm[Hg] Lydia Grande TECHNICAL PROJECT COORDINATOR.MEDICAL SERVICE TECHNICIAN Work Phone: [facility] 09-01-2023 12:05-0500 Heart rate 64 /min Lydia Grande TECHNICAL PROJECT COORDINATOR.MEDICAL SERVICE TECHNICIAN Work Phone: [facility] 09-01-2023 12:05-0500 Respiratory rate 16 /min Lydia Grande TECHNICAL PROJECT COORDINATOR.MEDICAL SERVICE TECHNICIAN Work Phone: [facility] 09-01-2023 12:05-0500 SaO2% (BldA) [Mass fraction] 96 % Lydia Grande TECHNICAL PROJECT COORDINATOR.MEDICAL SERVICE TECHNICIAN Work Phone: [facility] 09-01-2023 12:05-0500 Systolic blood pressure 144 mm[Hg] Lydia Grande TECHNICAL PROJECT COORDINATOR.MEDICAL SERVICE TECHNICIAN Work Phone: [facility] 06-23-2023 08:53-0500 Diastolic blood pressure 84 mm[Hg] Tierney Mayra PA-C Work Phone: [facility] 06-23-2023 08:53-0500 Heart rate 57 /min Tierney Mayra PA-C Work Phone: [facility] 06-23-2023 08:53-0500 Respiratory rate 17 /min Tierney Mayra PA-C Work Phone: [facility] 06-23-2023 08:53-0500 SaO2% (BldA) [Mass fraction] 96 % Tierney Mayra PA-C Work Phone: [facility] 06-23-2023 08:53-0500 Systolic blood pressure 122 mm[Hg] Tierney Helm PA-C Work Phone: [facility] 05-23-2023 14:08-0500 Body temperature 97.2 [degF] Octavio Reza MD Work Phone: [facility] 05-23-2023 14:08-0500 Body weight 154.22 kg Octavio Reza MD Work Phone: [facility] 05-23-2023 14:08-0500 Diastolic blood pressure 82 mm[Hg] Octavio Reza MD Work Phone: [facility] 05-23-2023 14:08-0500 Heart rate 68 /min Octavio Reza MD Work Phone: [facility] 05-23-2023 14:08-0500 Respiratory rate 18 /min Octavio Reza MD Work Phone: [facility] 05-23-2023 14:08-0500 SaO2% (BldA) [Mass fraction] 98 % Octavio Reza MD Work Phone: [facility] 05-23-2023 14:08-0500 Systolic blood pressure 128 mm[Hg] Octavio Reza MD Work Phone: [facility] 05-16-2023 09:30-0400 Body height 176.5 cm Anant Lees MD Work Phone: [facility] 05-16-2023 09:30-0400 Body weight 153.77 kg Anant Lees MD Work Phone: [facility] 05-16-2023 09:30-0400 Diastolic blood pressure 73 mm[Hg] Anant Lees MD Work Phone: [facility] 05-16-2023 09:30-0400 Heart rate 60 /min Anant Lees MD Work Phone: [facility] 05-16-2023 09:30-0400 SaO2% (BldA) [Mass fraction] 97 % Anant Lees MD Work Phone: [facility] 05-16-2023 09:30-0400 Systolic blood pressure 124 mm[Hg] Anant Lees MD Work Phone: [facility] 01-17-2023 13:47-0400 Body temperature 97 [degF] Octavio Reza MD Work Phone: [facility] 01-17-2023 13:47-0400 Diastolic blood pressure 69 mm[Hg] Octavio Reza MD Work Phone: [facility] 01-17-2023 13:47-0400 Heart rate 63 /min Octavio Reza MD Work Phone: [facility] 01-17-2023 13:47-0400 Respiratory rate 18 /min Octavio Reza MD Work Phone: [facility] 01-17-2023 13:47-0400 SaO2% (BldA) [Mass fraction] 96 % Octavio Reza MD Work Phone: [facility] 01-17-2023 13:47-0400 Systolic blood pressure 122 mm[Hg] Octavio Reza MD Work Phone: [facility] 10-05-2022 12:57-0400 Body height 175.3 cm Davon Narda TECHNICAL PROJECT COORDINATOR.FINANCIAL DATA ANALYST Work Phone: [facility] 10-05-2022 12:57-0400 Body temperature 97.39 [degF] Davon Narda TECHNICAL PROJECT COORDINATOR.FINANCIAL DATA ANALYST Work Phone: [facility] 10-05-2022 12:57-0400 Body weight 151.05 kg Davon Narda TECHNICAL PROJECT COORDINATOR.FINANCIAL DATA ANALYST Work Phone: [facility] 10-05-2022 12:57-0400 Diastolic blood pressure 62 mm[Hg] Davon Narda TECHNICAL PROJECT COORDINATOR.FINANCIAL DATA ANALYST Work Phone: [facility] 10-05-2022 12:57-0400 Heart rate 71 /min Davon Narda TECHNICAL PROJECT COORDINATOR.FINANCIAL DATA ANALYST Work Phone: [facility] 10-05-2022 12:57-0400 Respiratory rate 16 /min Davon Narda TECHNICAL PROJECT COORDINATOR.FINANCIAL DATA ANALYST Work Phone: [facility] 10-05-2022 12:57-0400 SaO2% (BldA) [Mass fraction] 97 % Davon Narda TECHNICAL PROJECT COORDINATOR.FINANCIAL DATA ANALYST Work Phone: [facility] 10-05-2022 12:57-0400 Systolic blood pressure 138 mm[Hg] Davon Narda TECHNICAL PROJECT COORDINATOR.FINANCIAL DATA ANALYST Work Phone: [facility] 09-07-2022 18:00-0500 Diastolic blood pressure 64 mm[Hg] Octavio Reza MD Work Phone: [facility] 09-07-2022 18:00-0500 Systolic blood pressure 144 mm[Hg] Octavio Reza MD Work Phone: [facility] 09-07-2022 17:29-0500 Body temperature 97.9 [degF] Octavio Reza MD Work Phone: [facility] 09-07-2022 17:29-0500 Heart rate 77 /min Octavio Reza MD Work Phone: [facility] 09-07-2022 17:29-0500 Respiratory rate 18 /min Octavio Reza MD Work Phone: [facility] 09-07-2022 17:29-0500 SaO2% (BldA) [Mass fraction] 98 % Octavio Reza MD Work Phone: [facility] 08-17-2022 15:59-0500 Body temperature 98.2 [degF] Octavio Reza MD Work Phone: [facility] 08-17-2022 15:59-0500 Diastolic blood pressure 68 mm[Hg] Octavio Reza MD Work Phone: [facility] 08-17-2022 15:59-0500 Heart rate 61 /min Octavio Reza MD Work Phone: [facility] 08-17-2022 15:59-0500 Respiratory rate 18 /min Octavio Reza MD Work Phone: [facility] 08-17-2022 15:59-0500 SaO2% (BldA) [Mass fraction] 98 % Octavio Reza MD Work Phone: [facility] 08-17-2022 15:59-0500 Systolic blood pressure 120 mm[Hg] Octavio Reza MD Work Phone: [facility] 05-18-2022 09:19-0400 Diastolic blood pressure 80 mm[Hg] Octavio Reza MD Work Phone: [facility] 05-18-2022 09:19-0400 Heart rate 55 /min Octavio Reza MD Work Phone: [facility] 05-18-2022 09:19-0400 SaO2% (BldA) [Mass fraction] 98 % Octavio Reza MD Work Phone: [facility] 05-18-2022 09:19-0400 Systolic blood pressure 128 mm[Hg] Octavio Reza MD Work Phone: [facility] 02-15-2022 14:44-0400 Body weight 153.77 kg Lydia Grande TECHNICAL PROJECT COORDINATOR.MEDICAL SERVICE TECHNICIAN Work Phone: [facility] 02-15-2022 14:44-0400 Diastolic blood pressure 60 mm[Hg] Lydia Grande TECHNICAL PROJECT COORDINATOR.MEDICAL SERVICE TECHNICIAN Work Phone: [facility] 02-15-2022 14:44-0400 Heart rate 63 /min Lydia Grande TECHNICAL PROJECT COORDINATOR.MEDICAL SERVICE TECHNICIAN Work Phone: [facility] 02-15-2022 14:44-0400 Respiratory rate 16 /min Lydia Grande TECHNICAL PROJECT COORDINATOR.MEDICAL SERVICE TECHNICIAN Work Phone: [facility] 02-15-2022 14:44-0400 SaO2% (BldA) [Mass fraction] 96 % Lydia Grande TECHNICAL PROJECT COORDINATOR.MEDICAL SERVICE TECHNICIAN Work Phone: [facility] 02-15-2022 14:44-0400 Systolic blood pressure 144 mm[Hg] Lydia Grande TECHNICAL PROJECT COORDINATOR.MEDICAL SERVICE TECHNICIAN Work Phone: [facility] 01-11-2022 14:59-0400 Body weight 153.32 kg Octavio Reza MD Work Phone: [facility] 01-11-2022 14:59-0400 Diastolic blood pressure 82 mm[Hg] Octavio Reza MD Work Phone: [facility] 01-11-2022 14:59-0400 Heart rate 68 /min Octavio Reza MD Work Phone: [facility] 01-11-2022 14:59-0400 SaO2% (BldA) [Mass fraction] 97 % Octavio Reza MD Work Phone: [facility] 01-11-2022 14:59-0400 Systolic blood pressure 152 mm[Hg] Octavio Reza MD Work Phone: [facility] 12-23-2021 16:18-0400 Body temperature 97.11 [degF] Guillermo Maurer MD Work Phone: [facility] 12-23-2021 16:18-0400 Body weight 151.05 kg Guillermo Maurer MD Work Phone: [facility] 12-23-2021 16:18-0400 Diastolic blood pressure 82 mm[Hg] Guillermo Maurer MD Work Phone: [facility] 12-23-2021 16:18-0400 Heart rate 72 /min Guillermo Maurer MD Work Phone: [facility] 12-23-2021 16:18-0400 Respiratory rate 16 /min Guillermo Maurer MD Work Phone: [facility] 12-23-2021 16:18-0400 Systolic blood pressure 154 mm[Hg] Guillermo Maurer MD Work Phone: [facility] 12-17-2021 12:44-0400 Body temperature 97.11 [degF] Wanda Phillips TECHNICAL PROJECT COORDINATOR.FINANCIAL DATA ANALYST Work Phone: [facility] 12-17-2021 12:44-0400 Diastolic blood pressure 88 mm[Hg] Wanda Praisler-Wood TECHNICAL PROJECT COORDINATOR.FINANCIAL DATA ANALYST Work Phone: [facility] 12-17-2021 12:44-0400 Heart rate 71 /min Wanda Praisler-Wood TECHNICAL PROJECT COORDINATOR.FINANCIAL DATA ANALYST Work Phone: [facility] 12-17-2021 12:44-0400 Respiratory rate 18 /min Wanda Praisler-Wood TECHNICAL PROJECT COORDINATOR.FINANCIAL DATA ANALYST Work Phone: [facility] 12-17-2021 12:44-0400 SaO2% (BldA) [Mass fraction] 96 % Wanda Praisler-Wood TECHNICAL PROJECT COORDINATOR.FINANCIAL DATA ANALYST Work Phone: [facility] 12-17-2021 12:44-0400 Systolic blood pressure 146 mm[Hg] Wanda Praisler-Wood TECHNICAL PROJECT COORDINATOR.FINANCIAL DATA ANALYST Work Phone: [facility] 10-29-2021 09:00-0400 Diastolic blood pressure 66 mm[Hg] Holland Carmichael MD Work Phone: [facility] 10-29-2021 09:00-0400 Heart rate 80 /min Holland Carmichael MD Work Phone: [facility] 10-29-2021 09:00-0400 Respiratory rate 20 /min Holland Carmichael MD Work Phone: [facility] 10-29-2021 09:00-0400 SaO2% (BldA) [Mass fraction] 93 % Holland Carmichael MD Work Phone: [facility] 10-29-2021 09:00-0400 Systolic blood pressure 142 mm[Hg] Holland Carmichael MD Work Phone: [facility] 10-29-2021 07:58-0400 Body temperature 97.59 [degF] Holland Carmichael MD Work Phone: [facility] 09-11-2021 11:56-0500 Diastolic blood pressure 72 mm[Hg] Octavio Reza MD Work Phone: [facility] 09-11-2021 11:56-0500 Systolic blood pressure 148 mm[Hg] Octavio Reza MD Work Phone: [facility] 09-11-2021 10:47-0500 Heart rate 62 /min Octavio Reza MD Work Phone: [facility] 11-22-2016 10:37-0400 BMI (Body Mass Index) 53.08 kg/m2 [facility] Work Phone: 11-22-2016 10:37-0400 BP Diastolic 68 mm[Hg] [facility] Work Phone: 11-22-2016 10:37-0400 BP Systolic 150 mm[Hg] [facility] Work Phone: 11-22-2016 10:37-0400 Pulse (Heart Rate) 60 /min [facility] Work Phone: 11-22-2016 10:37-0400 Respiratory Rate 18 /min [facility] Work Phone: 11-22-2016 10:37-0400 Weight 167.83 kg L[facility] Work Phone: 07-21-2015 13:03-0500 BMI (Body Mass Index) 50.21 kg/m2 Bettina [facility] Work Phone: 07-21-2015 13:03-0500 BP Diastolic 70 mm[Hg] Bettina Vaca RN [facility] Work Phone: 07-21-2015 13:03-0500 BP Systolic 146 mm[Hg] Bettina Vaca RN [facility] Work Phone: 07-21-2015 13:03-0500 BSA (Body Surface Area) 2.65 m2 Bettina Vaca RN [facility] Work Phone: 07-21-2015 13:03-0500 Pulse (Heart Rate) 64 /min Bettina aVca RN [facility] Work Phone: 07-21-2015 13:03-0500 Respiratory Rate 14 /min Bettina Vaca RN [facility] Work Phone: 07-21-2015 13:03-0500 Weight 158.76 kg Bettina Vaca RN [facility] Work Phone: 01-06-2015 15:20-0400 BMI (Body Mass Index) Bettina [facility] Work Phone: 03-15-2012 13:57-0400 Height 177.8 cm Bettina Vaca RN [facility] Work Phone: Encounters Encounter Date Encounter Type Care Provider Facility Start: 09-05-2023 Telephone encounter Lydia Saad butler TECHNICAL PROJECT COORDINATOR.MEDICAL SERVICE TECHNICIAN Work Phone: [facility] [place] Procedures Date Procedure Procedure Detail Performing Clinician Start: 06-23-2023 Noninvasive ear/puls e oximetry multiple deter Tierney Shoemaker [facility] Work Phone: Start: 06-23-2023 Nitric oxide gas determination Tierney Shoemaker [facility] Work Phone: Start: 05-18-2022 INFLUENZA SEASONAL QUADRIVALENT HIGH DOSE AGE 65+ Octavio Reza MD Work Phone: Start: 12-16-2021 Radiologic exam ches t 2 views Christine Bianchi MD Work Phone: Start: 10-29-2021 Colon ca scrn not hi rsk ind Holland Carmichael MD Work Phone: Start: 10-29-2021 Colonoscopy Holland gandhi MD Work Phone: Start: 11-22-2016 End: 11-22-2016 Follow Up Appt 1 year Chris Zapata Start: 11-22-2016 End: 11-22-2016 PFM Chris Lott MD Start: 07-21-2015 End: 07-21-2015 Follow Up Appt 1 year Chris Zapata Start: 07-21-2015 End: 07-21-2015 PFM Chris Lott MD Start: 01-06-2015 End: 01-07-2015 Documentation of current medications Areli Estevez PA-C Work Phone: Start: 01-06-2015 End: 01-06-2015 Follow Up Appt 6 months Areli blount PA-C Work Phone: Start: 01-06-2015 End: 01-06-2015 PFM Areli Estevez PA-C Work Phone: Start: 10-12-2013 End: 10-12-2013 Follow Up Appt 6 months Areli blount PA-C Work Phone: Start: 10-12-2013 End: 10-12-2013 Follow Up Appt Other Areli garza PA-C Work Phone: Start: 10-12-2013 End: 10-12-2013 PFM Areli Estevez PA-C Work Phone: Start: 03-23-2013 End: 03-23-2013 Electrocardiogram, complete Chris torres MD Start: 03-23-2013 End: 03-23-2013 Follow Up Appt 6 months Chris Lott MD Start: 03-23-2013 End: 03-23-2013 MMM Chris Lott MD Start: 11-15-2012 End: 03-23-2013 Follow Up Appt 1 year Chris Zapata Start: 11-15-2012 End: 03-23-2013 Follow Up Appt Other Chris Lott MD Start: 11-15-2012 End: 03-23-2013 PFM Chris Lott MD Start: 03-15-2012 End: 03-15-2012 Electrocardiogram, mack torres MD Start: 03-15-2012 End: 03-15-2012 Follow Up Appt 6 months Chris Lott MD Start: 01-20-2012 End: 03-23-2013 Remote 30 day ecg rev/report Chris Lott MD Plan of Treatment Date Care Activity Detail Author Start: 10-29-2026 Colonoscopy COLONOSCOPY [facility] Start: 10-29-2026 COLORECTAL CANCER SCREENING COLORECTAL CANCER SCREENING [facility] Start: 10-29-2026 Screening for malign ant neoplasm of colon [facility] Start: 09-02-2024 Hepatitis B screening Urine Al bumin:Creatinine Ratio [facility] Start: 06-29-2024 Glaucoma screening Dilated Retinal E xam [facility] Start: 05-23-2024 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 Annual PCP Team Chronic Disease Visit [facility] Start: 05-16-2024 BP Controlled (<130/80) BP Controlle d (<130/80) [facility] Start: 03-01-2024 Hemoglobin A1c measurement HbA1C [facility] Start: 01-18-2024 ANNUAL PCP TEAM INSTRUCTOR TECHNICAL TRAINING MATTHIAS DISEASE VISIT ANNUAL PCP TEAM CHRONIC DISEASE VISIT [facility] Start: 01-18-2024 BP CONTROLLED (<130/80) BP CONTROLLE D (<130/80) [facility] Start: 01-18-2024 COVID-19 VACCINE (#1) COVID-19 VACCI NE (#1) [facility] Immunizations Immunization Date Immunization Notes Care Provider Fa cility 05-18-2022 influenza, high-dose , quadrivalent vaccine (FLUZONE HIGH DOSE QUADRIVALENT) Octavio Reza MD Work Phone: [facility] 05-18-2022 influenza virus vaccine, unspecified formulation Anant Lees MD Work Phone: [facility] 07-02-2021 influenza, high-dose , quadrivalent vaccine (FLUZONE HIGH DOSE QUADRIVALENT) Octavio Reza MD Work Phone: [facility] 04-15-2020 influenza, high-dose , quadrivalent vaccine (FLUZONE HIGH DOSE QUADRIVALENT) Octavio Reza MD Work Phone: [facility] 04-16-2019 influenza, high dose seasonal, preservative-free Octavio Reza MD Work Phone: [facility] 04-12-2018 influenza, high dose seasonal, preservative-free Octavio Reza MD Work Phone: [facility] 04-11-2017 influenza, high dose seasonal, preservative-free Octavio Reza MD Work Phone: [facility] 05-10-2016 influenza, high dose seasonal, preservative-free Octavio Reza MD Work Phone: [facility] Work Phone: 04-16-2016 pneumococcal vaccine , unspecified formulation Octavio Reza MD Work Phone: [facility] 03-16-2016 pneumococcal conjuga te vaccine, 13 valent Octavio Reza MD Work Phone: [facility] Work Phone: 05-27-2015 influenza, high dose seasonal, preservative-free Octavio Reza MD Work Phone: [facility] 06-12-2014 pneumococcal polysaccharide vaccine, 23 valent Octavio Reza MD Work Phone: [facility] 05-23-2013 influenza virus vaccine, unspecified formulation Octavio Reza MD Work Phone: [facility] 05-23-2013 influenza, seasonal, injectable Octavio Reza MD Work Phone: [facility] 04-13-2012 influenza virus vaccine, unspecified formulation Octavio Reza MD Work Phone: [facility] 06-01-2007 influenza virus vaccine, unspecified formulation Octavio Reza MD Work Phone: [facility] Work Phone: 05-18-2006 influenza virus vaccine, unspecified formulation Octavio Reza MD Work Phone: [facility] Work Phone: 06-15-2005 influenza virus vaccine, unspecified formulation Octavio Reza MD Work Phone: [facility] Work Phone: 07-26-2000 pneumococcal polysaccharide vaccine, 23 valent Octavio Reza MD Work Phone: [facility] Work Phone: NEGATED: Highlighted row has not occurred!06-25-2023 influenza (HD-IIV4) vaccine, age 65+ yr, high dose, quadrivalent, PF (FLUZONE HIGH-DOSE) Octavio Reza MD Work Phone: [facility] Work Phone: NEGATED: Highlighted row has not occurred!05-23-2023 influenza (HD-IIV4) vaccine, age 65+ yr, high dose, quadrivalent, PF (FLUZONE HIGH-DOSE) Lydia Grande APRN.MEDICAL SERVICE TECHNICIAN Work Phone: [facility] NEGATED: Highlighted row has not occurred!02-15-2022 COVID-19 vaccine, age 12+ yr ([facility]) Lydia Grande APRN.MEDICAL SERVICE TECHNICIAN Work Phone: [facility] Work Phone: NEGATED: Highlighted row has not occurred!02-15-2022 influenza virus vaccine, unspecified formulation Lydiajennifer Grande APRN.MEDICAL SERVICE TECHNICIAN Work Phone: [facility] Work Phone: NEGATED: Highlighted row has not occurred!02-15-2022 tetanus toxoid, reduced diphtheria toxoid, and acellular pertussis vaccine, adsorbed Lydia Grande APRN.MEDICAL SERVICE TECHNICIAN Work Phone: [facility] Work Phone: Payers Date Payer Category Payer Medicare [employer] MEDICARE A ETNA MEDICARE PPO [id number] 2021-Present [phone] [address] [place] [address] PPO [id number] 2021 Medicare [id number] 2021 Medicare [id number] Social History Date Type Detail Facility Start: 09-07-2022 Tobacco smoking stat us [facility] Ex-smoker [facility] End: 10-21-1998 History of tobacco use Current smoker [facility] End: 10-21-1998 History of tobacco use Cigarette Smoker [facility] Start: 09-30-2021 End: 09-01-2023 Alcohol intake Current drinker of alcohol (finding) [facility] Start: 02-24-2018 History SDOH Alcohol Comment Rarely [facility] Start: 1945 Sex Assigned At Not on file [facility] Start: 09-20-2021 End: 05-18-2022 Exposure to SARS-CoV-2 (event) Not sure [facility] Start: 12-13-2021 End: 12-23-2021 Exposure to SARS-CoV-2 (event) Unable to assess [facility] Work Phone: Start: 09-07-2022 End: 01-17-2023 Cigarettes smoked current (pack per day) - Reported 0.5 [facility] Start: 09-07-2022 Tobacco use and exposure Smokeless tobacco non-user [facility] Work Phone: Start: 01-11-2022 End: 01-17-2023 Tobacco use panel [facility] Adult Depression Screening Assessment 2 [facility] Medical Equipment Procedure Code Equipment Code Equipment Origin al Text Equipment Identifier Dates Start: 09-24-2020 End: 02-05-2023 Goals Date Patient Goal Desired Activity /State Personal health goal Clinical Notes 05-11-2021 to 09-05-2023 Telephone Encounter - Cecy Brush LPN - 09/05/2023 2:19 PM ESTTelephone Encounter - Asmita Tapia RN - 09/05/2023 1:44 PM ESTTelephone Encounter - Asmita Tapia RN - 09/05/2023 10:00 AM EST Note Date & Type Note Facility 09-05-2023 Miscellaneous Notes Patient returned call and went over results, notes from Lydia Grande BUSINESS DATA ANALYST with understanding,. After going over questions with Sed rate and CRP being elevated. Patient wants to stay locally to see Wrestling Coach since she is in wheel chair and does not like to drive in big cities. She is going to check with her insurance which one is covered and may call back if needing to have referral and information faxed. Voicemail left for pt to call provider's office and ask for a nurse, for message below. Asmita Tapia RN' Please let her know that DORA and rheumatoid factor were negative. CRP and ESR are slightly elevated. Stable A1c. Vitamin D is normal. She may continue on with Advil with finding it helpful. If she would like to see a forest ranger technician I can place a consult. Schedule if so. Component Latest Ref Rng & Units 09/01/2023 09/02/2023 WBC 3.70 - 11.00 k/uL 7.30 RBC 3.90 - 5.20 m/uL 4.43 Hemoglobin 11.5 - 15.5 g/dL 13.0 Hematocrit 36.0 - 46.0 % 39.8 MCV 80.0 - 100.0 fL 89.8 MCH 26.0 - 34.0 pg 29.3 MCHC 30.5 - 36.0 g/dL 32.7 RDW-CV 11.5 - 15.0 % 12.6 Platelet Count 150 - 400 k/uL 199 MPV 9.0 - 12.7 fL 12.7 Neut% % 82.8 Abs Neut (ANC) 1.45 - 7.50 k/uL 6.05 Lymph% % 6.6 Abs Lymph 1.00 - 4.00 k/uL 0.48 (L) [place]% % 6.3 Abs [place] <0.87 k/uL 0.46 Eosin% % 3.6 Abs Eosin <0.46 k/uL 0.26 Baso% % 0.4 Abs Baso <0.11 k/uL 0.03 Immature Gran % % 0.3 IMMATURE GRANS (ABS) <0.10 k/uL <0.03 NRBC /100 WBC 0.0 Absolute nRBC <0.01 k/uL <0.01 DTYPE Auto Protein, Total 6.3 - 8.0 g/dL 7.1 Albumin 3.9 - 4.9 g/dL 4.0 Calcium 8.5 - 10.2 mg/dL 9.8 Bilirubin, Total 0.2 - 1.3 mg/dL 0.8 Alkaline Phosphatase 34 - 123 U/L 107 AST 13 - 35 U/L 16 ALT 7 - 38 U/L 14 Glucose 74 - 99 mg/dL 123 (H) BUN 7 - 21 mg/dL 24 (H) Creatinine 0.58 - 0.96 mg/dL 0.72 Sodium 136 - 144 mmol/L 139 Potassium 3.7 - 5.1 mmol/L 4.3 Chloride 97 - 105 mmol/L 103 CO2 22 - 30 mmol/L 26 Anion Gap 9 - 18 mmol/L 10 eGFR >=60 mL/min/1.73m 86 Creatinine, Ur Random (UCRR) 20.0 - 300.0 mg/dL 78.0 Albumin, Urine Random mg/L <12.0 Albumin/Creat Ratio <30 mg/g <15 Hemoglobin A1C 4.3 - 5.6 % 7.7 (H) Estimated Average Glucose mg/dL 174 WSR 0 - 20 mm/hr 27 (H) CRP <0.9 mg/dL 1.3 (H) DORA Negative Negative Rheumatoid Factor <16 IU/mL <10 Vitamin D 25 Hydroxy 31.0 - 80.0 ng/mL 46.2 Patient calling to ask provider to advise on her recent lab results from 09/01 and 09/02, when able. Thank you. documented in this encounter [facility] 09-01-2023 Note HNO ID: [id number] Author: LYDIA GRADNE APRN.CNS Service: ? Author Type: Nurse Specialist Type: Progress Notes Filed: 09/01/2023 12:51 Note Text: SUBJECTIVE: DTaP,Tdap,Td Vaccine(1 - Tdap) Never done RSV Vaccine(1 - 1-dose 60+ series) Never done Diabetic Foot Exam due on 10/27/2021 BP Controlled (<130/80) due on 05/11/2022 Urine Albumin:Creatinine Ratio due on 12/24/2022 Influenza Vaccine(1) due on 03/18/2023 Advance Directive Discussion due on 07/18/2023 LDL Cholesterol due on 09/14/2023 HPI Shereen Seals is a 78 year old female. 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) Anxiety State Depressive Disorder, Not Elsewhere Classified Esophageal Reflux Type I Diabetes Mellitus With Manifestations (Hcc) Essential Hypertension Arthropathy associated with neurological disorder Insomnia, Unspecified Rosacea Debility Charcot Foot Due to Diabetes Mellitus (Hcc) Vitamin D Deficiency Asthma Morbid Obesity With Bmi of 45.0-49.9, Adult (Hcc) Stasis Edema of Both Lower Extremities Adverse Reaction to Hmg-Coa Reductase Inhibitor Chronic Obstructive Asthma With Exacerbation (Hcc) (Hcc) Acute Respiratory Failure With Hypoxia (Hcc) Paroxysmal Svt (Supraventricular Tachycardia) Palpitations Major Depressive Disorder, Recurrent, in Full Remission (Hcc) Shereen Seals is a 78 year old female who presents for ER follow up visit 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) Anxiety State Depressive Disorder, Not Elsewhere Classified Esophageal Reflux Type I Diabetes Mellitus With Manifestations (Hcc) Essential Hypertension Arthropathy associated with neurological disorder Insomnia, Unspecified Rosacea Debility Charcot Foot Due to Diabetes Mellitus (Hcc) Vitamin D Deficiency Asthma Morbid Obesity With Bmi of 45.0-49.9, Adult (Hcc) Stasis Edema of Both Lower Extremities Adverse Reaction to Hmg-Coa Reductase Inhibitor Chronic Obstructive Asthma With Exacerbation (Hcc) (Hcc) Acute Respiratory Failure With Hypoxia (Hcc) Paroxysmal Svt (Supraventricular Tachycardia) Palpitations Major Depressive Disorder, Recurrent, in Full Remission (Hcc) Presents today regarding hand pain that is sharp with movement and at rest. She also notes discomfort in the left shoulder and left knee. She reports both index fingers become red and swollen which can last for 20 minutes to 3 hours. Present for 3 weeks. No redness or swelling around the knee or shoulder, discomfort only. No reported crepitus. Does not seem to be related to activity. States she was told she may have psoriasis on her scalp and wonders if she may have a joint problem due to this. Injury: no Location: both index fingers and left shoulder left knee Duration: 2-3 weeks Character: Alleviate: advil seemed to help Aggravate: no [id number]: Prior occurrence: no Review of Systems Respiratory: Negative. Musculoskeletal: Positive for arthralgias. Objective BP 144/74 Pulse 64 Resp 16 Wt (!) 156.5 kg (345 lb) SpO2 96% BMI 50.95 kg/m? Physical Exam Vitals and nursing note reviewed. Constitutional: Appearance: Normal appearance. HENT: Head: Normocephalic and atraumatic. Mouth/Throat: Lips: [place]. Mouth: Mucous membranes are moist. Eyes: Conjunctiva/sclera: Conjunctivae normal. Cardiovascular: Rate and Rhythm: Normal rate and regular rhythm. Heart sounds: Normal heart sounds. Pulmonary: Effort: Pulmonary effort is normal. Breath sounds: Normal breath sounds. Abdominal: General: Bowel sounds are normal. Palpations: Abdomen is soft. Musculoskeletal: Left shoulder: Tenderness present. Decreased range of motion. Right hand: Normal capillary refill. Normal pulse. Left hand: Normal capillary refill. Normal pulse. Left knee: Decreased range of motion. Tenderness present. Skin: General: Skin is warm and dry. Neurological: General: No focal deficit present. Mental Status: She is alert and oriented to person, place, and time. ALLERGIES Allergen Reactions Escitalopram Intolerance Fatigued after just a half pill dose. Did not want to take anymore. Hctz [Amiloride-Hyd* Other: See Comments Rapid heart beat, nausea, light headed. ( lasted about 12 hours after first dose. Tylenol-Codeine #3 * Vomiting Crestor [Rosuvastat* Intolerance stomach upset even on half of 5 mg pill twice a week Doxycycline GI Upset Lipitor [Atorvastat* Myalgia leg pain Pravastatin GI Upset 10mg dose upset stomach Simvastatin Myalgia Even when cut dose down, still had muscle aches. Had tolerated for years before developed leg pain Did not tolerate even half pill 3 times weekly with last 2 prescriptions Tolerating 1/4 tablet every other day for past few days Naprosyn [Naproxen] GI Upset Nausea Ventolin [Albu (more content not included)... [facility] 09-01-2023 History of Presen t illness Narrative SUBJECTIVE: DTaP,Tdap,Td Vaccine(1 - Tdap) Never done RSV Vaccine(1 - 1-dose 60+ series) Never done Diabetic Foot Exam due on 10/27/2021 BP Controlled (<130/80) due on 05/11/2022 Urine Albumin:Creatinine Ratio due on 12/24/2022 Influenza Vaccine(1) due on 03/18/2023 Advance Directive Discussion due on 07/18/2023 LDL Cholesterol due on 09/14/2023 HPI Shereen Seals is a 78 year old female. 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) Anxiety State Depressive Disorder, Not Elsewhere Classified Esophageal Reflux Type I Diabetes Mellitus With Manifestations (Hcc) Essential Hypertension Arthropathy associated with neurological disorder Insomnia, Unspecified Rosacea Debility Charcot Foot Due to Diabetes Mellitus (Hcc) Vitamin D Deficiency Asthma Morbid Obesity With Bmi of 45.0-49.9, Adult (Hcc) Stasis Edema of Both Lower Extremities Adverse Reaction to Hmg-Coa Reductase Inhibitor Chronic Obstructive Asthma With Exacerbation (Hcc) (Hcc) Acute Respiratory Failure With Hypoxia (Hcc) Paroxysmal Svt (Supraventricular Tachycardia) Palpitations Major Depressive Disorder, Recurrent, in Full Remission (Hcc) Shereen Seals is a 78 year old female who presents for ER follow up visit 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) Anxiety State Depressive Disorder, Not Elsewhere Classified Esophageal Reflux Type I Diabetes Mellitus With Manifestations (Hcc) Essential Hypertension Arthropathy associated with neurological disorder Insomnia, Unspecified Rosacea Debility Charcot Foot Due to Diabetes Mellitus (Hcc) Vitamin D Deficiency Asthma Morbid Obesity With Bmi of 45.0-49.9, Adult (Hcc) Stasis Edema of Both Lower Extremities Adverse Reaction to Hmg-Coa Reductase Inhibitor Chronic Obstructive Asthma With Exacerbation (Hcc) (Hcc) Acute Respiratory Failure With Hypoxia (Hcc) Paroxysmal Svt (Supraventricular Tachycardia) Palpitations Major Depressive Disorder, Recurrent, in Full Remission (Hcc) Presents today regarding hand pain that is sharp with movement and at rest. She also notes discomfort in the left shoulder and left knee. She reports both index fingers become red and swollen which can last for 20 minutes to 3 hours. Present for 3 weeks. No redness or swelling around the knee or shoulder, discomfort only. No reported crepitus. Does not seem to be related to activity. States she was told she may have psoriasis on her scalp and wonders if she may have a joint problem due to this. Injury: no Location: both index fingers and left shoulder left knee Duration: 2-3 weeks Character: Alleviate: advil seemed to help Aggravate: no [id number]: Prior occurrence: no Review of Systems Respiratory: Negative. Musculoskeletal: Positive for arthralgias. Objective BP 144/74 Pulse 64 Resp 16 Wt (!) 156.5 kg (345 lb) SpO2 96% BMI 50.95 kg/m Physical Exam Vitals and nursing note reviewed. Constitutional: Appearance: Normal appearance. HENT: Head: Normocephalic and atraumatic. Mouth/Throat: Lips: [place]. Mouth: Mucous membranes are moist. Eyes: Conjunctiva/sclera: Conjunctivae normal. Cardiovascular: Rate and Rhythm: Normal rate and regular rhythm. Heart sounds: Normal heart sounds. Pulmonary: Effort: Pulmonary effort is normal. Breath sounds: Normal breath sounds. Abdominal: General: Bowel sounds are normal. Palpations: Abdomen is soft. Musculoskeletal: Left shoulder: Tenderness present. Decreased range of motion. Right hand: Normal capillary refill. Normal pulse. Left hand: Normal capillary refill. Normal pulse. Left knee: Decreased range of motion. Tenderness present. Skin: General: Skin is warm and dry. Neurological: General: No focal deficit present. Mental Status: She is alert and oriented to person, place, and time. ALLERGIES Allergen Reactions Escitalopram Intolerance Fatigued after just a half pill dose. Did not want to take anymore. Hctz [Amiloride-Hyd* Other: See Comments Rapid heart beat, nausea, light headed. ( lasted about 12 hours after first dose. Tylenol-Codeine #3 * Vomiting Crestor [Rosuvastat* Intolerance stomach upset even on half of 5 mg pill twice a week Doxycycline GI Upset Lipitor [Atorvastat* Myalgia leg pain Pravastatin GI Upset 10mg dose upset stomach Simvastatin Myalgia Even when cut dose down, still had muscle aches. Had tolerated for years before developed leg pain Did not tolerate even half pill 3 times weekly with last 2 prescriptions Tolerating 1/4 tablet every other day for past few days Naprosyn [Naproxen] GI Upset Nausea Ventolin [Albuterol* GI Upset, Vomiting budesonide-formoterol (SYMBICORT) 160-4.5 mcg/actuation inhaler Inhale 2 Puffs as instructed two times a day. insulin aspart U-100 (NOVOLOG U-100 INSULIN ASPART) 100 unit/mL Inject 3-10 Units subcutaneously three times a day before meals. As directed ramipril (ALTACE) 10 mg capsule Take 1 capsule by mouth two times a day. insulin NPH injection Inject 15-20 Units subcutaneously daily with breakfast. Dispense 6 vials (3 months supply) zolpidem (AMBIEN) 5 mg tablet Take 0.5-1 tablets by mouth at bedtime as needed for up to 90 days. insulin glargine 100 unit/mL (3 mL) Inject 27 Units subcutaneously daily at bedtime. Give Lantus, not Basaglar per patient preference (Patient taking differently: Inject 24 Units subcutaneously daily at bedtime. Give Lantus, not Basaglar per patient preference) metoprolol tartrate, short acting, (LOPRESSOR) 50 mg tablet Take 1/2 tablet by mouth twice a day furosemide (LASIX) 20 mg tablet Take 1 tablet by mouth once daily as needed. (Patient taking differently: Take 10 mg by mouth once daily as needed.) amLODIPine (NORVASC) 10 mg tablet Take 0.5 tablets by mouth once daily. blood sugar diagnostic (BLOOD GLUCOSE TEST) test strip Test blood sugar(s) 8 times daily--Medically Necessary for labile blood sugars (highs and lows). Dx: Other DM Code E10.8, E11.610 Insulin: Yes cholecalciferol, Vitamin D3, (VITAMIN D3) 1,250 mcg (50,000 unit) cap capsule Take 1 capsule by mouth one time a week. Insulin [place], Disposable, (BD ULTRA-FINE FADY PEN NEEDLE) 32 gauge x Use one needle for each dose. 1-2 /day. albuterol HFA (PROVENTIL HFA, VENTOLIN HFA) 90 mcg/actuation inhaler Inhale 2 Puffs as instructed four times daily as needed. FOR WHEEZING AND SHORTNESS OF BREATH. COMPOUNDED PRESCRIPTION Bi-PAP nose pads. (G47.33) THAIS treated with BiPAP ibuprofen 200 mg tablet Take 1-2 tablets by mouth four times daily as needed (Take with food.). --currently only needing 1 pill twice daily to help with cough meloxicam (MOBIC) 15 mg tablet Take 1 tablet by mouth once daily. for pain. Take with food. mometasone (ELOCON) 0.1 % cream Apply to affected area once daily as needed (for scalp psoriasis). For 14 days. Treat for recurrences. Apply at bedtime then wash off in the morning (Patient not taking: Reported on 05/23/2023) flash glucose sensor (FREESTYLE JULITA 2 SENSOR) kit Apply new sensor every fourteen (14) days to upper arm. (Patient not taking: Reported on 05/23/2023) L. acidophilus/Bifid. animalis (DAILY PROBIOTIC ORAL) Take 1 capsule by mouth once daily. (Patient not taking: Reported on 09/07/2022) PAST MEDICAL HISTORY Diagnosis Date Adverse reaction to HMG-CoA reductase inhibitor 06/07/2022 Historical: see allergies Anal or rectal pain proctalgia Ankle fracture, right 03/06/2016 Anxiety state, unspecified Asthma Benign neoplasm of colon Charcot foot due to diabetes mellitus (HCC) Depressive disorder, not elsewhere classified DIABETES TYPE I W MANIF NOS 09/15/2005 Disorder of bone and cartilage, unspecified Esophageal reflux Essential hypertension, benign Incisional hernia 01/04/2013 Internal hemorrhoids without mention of complication Mitral valve disorders(424.0) Obesity, unspecified Other and unspecified hyperlipidemia Other seborrheic keratosis 10/12/2006 Rosacea 09/06/2007 Unspecified asthma(493.90) 11/2013 PFTs. 09/2013 and 10/2013 Ivette. Vitamin D deficiency 08/21/2010 Social History Tobacco Use Smoking status: Former Packs/day: 0.50 Years: 20.00 Additional pack years: 0.00 Total pack years: 10.00 Types: Cigarettes Quit date: 10/21/1998 Years since quittin.8 Smokeless tobacco: Never Vaping Use Vaping Use: Never used Substance Use Topics Alcohol use: Yes Comment: Rarely Drug use: No ASSESSMENT/PLAN: 1. Polyarthralgia - ICD9: 719.49, ICD10: M25.50 (primary diagnosis) 2. Finger pain both hands M79.645, M79.644 Reports bilateral index finger pain left shoulder pain and left knee pain present for 2-3 weeks Recommend checking screening lab work for inflammatory process today. Trial meloxicam daily for the next several days then daily as needed. - SED RATE WESTERGREN - C-REACTIVE PROTEIN (CRP) - DORA BY IFA SCREEN - RHEUMATOID FACTOR BL 2. 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) - ICD9: 250.91, ICD10: E10.8 Recommend getting routine lab work that is due next month today so she does not have to come back for this. - COMP METABOLIC PANEL - CBC + DIFF - HGB A1C - LIPID PANEL BASIC - ALBUMIN/CREAT RATIO RND UR 3. Vitamin D deficiency - ICD9: 268.9, ICD10: E55.9 - VITAMIN D 25 HYDROXY She has an appointment in September with PCP, will let us know if she would like to be seen sooner for follow-up. Lydia Grande APRN.MEDICAL SERVICE TECHNICIAN Medical Decision Making: Problems: Low: Acute, uncomplicated illness or injury Data: Unique test(s) ordered: 3+ Risk: Moderate: Drug management Medical Decision Making Level: 4 - Moderate documented in this encounter [facility] 06-23-2023 Note HNO ID: [id number] Author: Zora Cortes RPFT Service: ? Author Type: Respiratory Therapist Type: Procedures Filed: 06/23/2023 9:38 AM Note Text: RESPIRATORY THERAPY ORAL EXHALED NITRIC OXIDE SERVICE DATE: 06/23/2023 SERVICE TIME: 9:38 AM Oral Exhaled Nitric Oxide measurement: 16.0 (ppb) Normal: Adult 5-20 ppb, pediatric (<12 years) 5-15 ppb High Normal / Increased: Adult 20-35 ppb, pediatric (<12 years) 15-25 ppb Moderately raised exhaled Nitric Oxide may indicate underlying inflammation, but note that: Cold and influenza can raise exhaled Nitric Oxide and some patients have higher baseline exhaled Nitric Oxide levels than others. High: Adult >35 ppb, pediatric (<12 years) >25 ppb Indicative of ongoing eosinophilic inflammation. Symptomatic patient likely to respond to steroids. Possible causes (if already on steroids): Poor compliance, recent allergen exposure, steroid dose inadequate, and steroid resistance. Note that not all patients with high exhaled nitric oxide levels display symptoms. Oral Exhaled Nitric Oxide measurement (Previous Encounters) Test Date Oral Exhaled Nitric Oxide (ppb) 06/23/2023 16.0 04/30/2021 45.0 (A) 02/23/2019 24.0 04/18/2017 56.0 (A) NAME: JAI Matthew PATIENT NAME: Shereen Seals DATE: June 23, 2023 TIME: 9:38 AM [facility] 06-23-2023 Note HNO ID: [id number] Author: Zora Cortes RPFT Service: ? 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 Author Type: Respiratory Therapist Type: Progress Notes Filed: 06/23/2023 9:38 AM Note Text: PULM FUNCTION SMARTBLOCK: Provider: Tierney Helm PA-C Assisting Tech: Zora Cortes RPFT Spirometry: 1 Oximetry - Ambulation: 1 Exhaled Nitric Oxide: 1 [facility] 06-23-2023 Note HNO ID: [id number] Author: Tierney Helm PA-C Service: ? Author Type: Physician Head Of It Type: Progress Notes Filed: 06/24/2023 9:51 AM Note Text: Patient: Shereen Seals PCP: Octavio Reza MD CC: follow up HPI: Shereen Seals 77 year old female former smoker, 10 pack years (quitting 1998) with PMH significant for hyperlipidemia, HTN, mitral valve disorder, GERD, Vit D deficiency, DM, THAIS non-compliant with PAP therapy, and asthma. Last office visit was 07/02/2021 with myself. Since that time patient has been admitted to [facility] on two occasions. The first being in June 2022 secondary to influenza A infection with hypoxia. Patient treated with Tamiflu and inhaled budesonide. Tamiflu was discontinued secondary to confusion and given an IM injection of Depo-Medrol. Discharged on 2L supplemental oxygen at rest and 4L with exertion. Patient returned to the ED in July 2022 secondary and was admitted for bacterial pneumonia. Treated with Augmentin. During her admission she tested positive for Covid. [facility] to [facility] 3[facility]4 weeks and eventually discharged home on supplemental oxygen. Patient states she weaned herself to RA and continues to wear 1L supplemental oxygen at night. Current therapy with Symbicort and as needed Albuterol. Today, patient reports daily non-productive cough. At times she feels like she has an irritant in her throat that is relieved with drinking water. Denies dysphagia. Frequent wheezing. Exertional dyspnea with minimal effort. Using a wheelchair.Trying to use stationary bike. Previously on BiPAP at nighttime. Patient is extremely hesitant about having a sleep study done. She is also upset that her walk today demonstrated that she does not need supplemental oxygen during the day. DME: [employer] PAST MEDICAL HISTORY Diagnosis Date Adverse reaction to HMG-CoA reductase inhibitor 06/07/2022 Historical: see allergies Anal or rectal pain proctalgia Ankle fracture, right 03/06/2016 Anxiety state, unspecified Asthma Benign neoplasm of colon Charcot foot due to diabetes mellitus (HCC) Depressive disorder, not elsewhere classified DIABETES TYPE I W MANIF NOS 09/15/2005 Disorder of bone and cartilage, unspecified Esophageal reflux Essential hypertension, benign Incisional hernia 01/04/2013 Internal hemorrhoids without mention of complication Mitral valve disorders(424.0) Obesity, unspecified Other and unspecified hyperlipidemia Other seborrheic keratosis 10/12/2006 Rosacea 09/06/2007 Unspecified asthma(493.90) 11/2013 PFTs. 09/2013 and 10/2013 Ivette. Vitamin D deficiency 08/21/2010 Allergies: Escitalopram Intolerance Comment:Fatigued after just a half pill dose. Did not want to take anymore. Hctz [Amiloride-Hyd* Other: See Comments Comment:Rapid heart beat, nausea, light headed. ( lasted about 12 hours after first dose. Tylenol-Codeine #3 * Vomiting Crestor [Rosuvastat* Intolerance Comment:stomach upset even on half of 5 mg pill twice a week Doxycycline GI Upset Lipitor [Atorvastat* Myalgia Comment:leg pain Pravastatin GI Upset Comment:10mg dose upset stomach Simvastatin Myalgia Comment:Even when cut dose down, still had muscle aches. Had tolerated for years before developed leg pain Did not tolerate even half pill 3 times weekly with last 2 prescriptions Tolerating 1/4 tablet every other day for past few days Naprosyn [Naproxen] GI Upset Comment:Nausea Ventolin [Albuterol* GI Upset, Vomiting budesonide-formoterol (SYMBICORT) 160-4.5 mcg/actuation inhaler Inhale 2 Puffs as instructed two times a day. insulin aspart U-100 (NOVOLOG U-100 INSULIN ASPART) 100 unit/mL Inject 3-10 Units subcutaneously three times a day before meals. As directed ramipril (ALTACE) 10 mg capsule Take 1 capsule by mouth two times a day. insulin NPH injection Inject 15-20 Units subcutaneously daily with breakfast. Dispense 6 vials (3 months supply) zolpidem (AMBIEN) 5 mg tablet Take 0.5-1 tablets by mouth at bedtime as needed for up to 90 days. insulin glargine 100 unit/mL (3 mL) Inject 27 Units subcutaneously daily at bedtime. Give Lantus, not Basaglar per patient preference (Patient taking differently: Inject 24 Units subcutaneously daily at bedtime. Give Lantus, not Basaglar per patient preference) metoprolol tartrate, short acting, (LOPRESSOR) 50 mg tablet Take 1/2 tablet by mouth twice a day furosemide (LASIX) 20 mg tablet Take 1 tablet by mouth once daily as needed. (Patient taking differently: Take 10 mg by mouth once daily as needed.) amLODIPine (NORVASC) 10 mg tablet Take 0.5 tablets by mouth once daily. blood sugar diagnostic (BLOOD GLUCOSE TEST) test strip Test blood sugar(s) 8 times daily--Medically Necessary for labile blood sugars (highs and lows). Dx: Other DM Code E10.8, E11.610 Insulin: Yes mometasone (ELOCON) 0.1 % cream Apply to affected area once hugh (more content not included)... [facility] 06-23-2023 History of Presen t illness Narrative Images from the original note were not included. Patient: Shereen Seals PCP: Octavio Reza MD CC: follow up HPI: Shereen Seals 77 year old female former smoker, 10 pack years (quitting 1998) with PMH significant for hyperlipidemia, HTN, mitral valve disorder, GERD, Vit D deficiency, DM, THAIS non-compliant with PAP therapy, and asthma. Last office visit was 07/02/2021 with myself. Since that time patient has been admitted to [facility] on two occasions. The first being in June 2022 secondary to influenza A infection with hypoxia. Patient treated with Tamiflu and inhaled budesonide. Tamiflu was discontinued secondary to confusion and given an IM injection of Depo-Medrol. Discharged on 2L supplemental oxygen at rest and 4L with exertion. Patient returned to the ED in July 2022 secondary and was admitted for bacterial pneumonia. Treated with Augmentin. During her admission she tested positive for Covid. [facility] 3-4 weeks and eventually discharged home on supplemental oxygen. Patient states she weaned herself to RA and continues to wear 1L supplemental oxygen at night. Current therapy with Symbicort and as needed Albuterol. Today, patient reports daily non-productive cough. At times she feels like she has an irritant in her throat that is relieved with drinking water. Denies dysphagia. Frequent wheezing. Exertional dyspnea with minimal effort. Using a wheelchair.Trying to use stationary bike. Previously on BiPAP at nighttime. Patient is extremely hesitant about having a sleep study done. She is also upset that her walk today demonstrated that she does not need supplemental oxygen during the day. DME: [employer] PAST MEDICAL HISTORY Diagnosis Date Adverse reaction to HMG-CoA reductase inhibitor 06/07/2022 Historical: see allergies Anal or rectal pain proctalgia Ankle fracture, right 03/06/2016 Anxiety state, unspecified Asthma Benign neoplasm of colon Charcot foot due to diabetes mellitus (HCC) Depressive disorder, not elsewhere classified DIABETES TYPE I W MANIF NOS 09/15/2005 Disorder of bone and cartilage, unspecified Esophageal reflux Essential hypertension, benign Incisional hernia 01/04/2013 Internal hemorrhoids without mention of complication Mitral valve disorders(424.0) Obesity, unspecified Other and unspecified hyperlipidemia Other seborrheic keratosis 10/12/2006 Rosacea 09/06/2007 Unspecified asthma(493.90) 11/2013 PFTs. 09/2013 and 10/2013 Ivette. Vitamin D deficiency 08/21/2010 Allergies: Escitalopram Intolerance Comment:Fatigued after just a half pill dose. Did not want to take anymore. Hctz [Amiloride-Hyd* Other: See Comments Comment:Rapid heart beat, nausea, light headed. ( lasted about 12 hours after first dose. Tylenol-Codeine #3 * Vomiting Crestor [Rosuvastat* Intolerance Comment:stomach upset even on half of 5 mg pill twice a week Doxycycline GI Upset Lipitor [Atorvastat* Myalgia Comment:leg pain Pravastatin GI Upset Comment:10mg dose upset stomach Simvastatin Myalgia Comment:Even when cut dose down, still had muscle aches. Had tolerated for years before developed leg pain Did not tolerate even half pill 3 times weekly with last 2 prescriptions Tolerating 1/4 tablet every other day for past few days Naprosyn [Naproxen] GI Upset Comment:Nausea Ventolin [Albuterol* GI Upset, Vomiting budesonide-formoterol (SYMBICORT) 160-4.5 mcg/actuation inhaler Inhale 2 Puffs as instructed two times a day. insulin aspart U-100 (NOVOLOG U-100 INSULIN ASPART) 100 unit/mL Inject 3-10 Units subcutaneously three times a day before meals. As directed ramipril (ALTACE) 10 mg capsule Take 1 capsule by mouth two times a day. insulin NPH injection Inject 15-20 Units subcutaneously daily with breakfast. Dispense 6 vials (3 months supply) zolpidem (AMBIEN) 5 mg tablet Take 0.5-1 tablets by mouth at bedtime as needed for up to 90 days. insulin glargine 100 unit/mL (3 mL) Inject 27 Units subcutaneously daily at bedtime. Give Lantus, not Basaglar per patient preference (Patient taking differently: Inject 24 Units subcutaneously daily at bedtime. Give Lantus, not Basaglar per patient preference) metoprolol tartrate, short acting, (LOPRESSOR) 50 mg tablet Take 1/2 tablet by mouth twice a day furosemide (LASIX) 20 mg tablet Take 1 tablet by mouth once daily as needed. (Patient taking differently: Take 10 mg by mouth once daily as needed.) amLODIPine (NORVASC) 10 mg tablet Take 0.5 tablets by mouth once daily. blood sugar diagnostic (BLOOD GLUCOSE TEST) test strip Test blood sugar(s) 8 times daily--Medically Necessary for labile blood sugars (highs and lows). Dx: Other DM Code E10.8, E11.610 Insulin: Yes mometasone (ELOCON) 0.1 % cream Apply to affected area once daily as needed (for scalp psoriasis). For 14 days. Treat for recurrences. Apply at bedtime then wash off in the morning (Patient not taking: Reported on 05/23/2023) flash glucose sensor (FREESTYLE JULITA 2 SENSOR) kit Apply new sensor every fourteen (14) days to upper arm. (Patient not taking: Reported on 05/23/2023) L. acidophilus/Bifid. animalis (DAILY PROBIOTIC ORAL) Take 1 capsule by mouth once daily. (Patient not taking: Reported on 09/07/2022) cholecalciferol, Vitamin D3, (VITAMIN D3) 1,250 mcg (50,000 unit) cap capsule Take 1 capsule by mouth one time a week. (Patient not taking: Reported on 05/23/2023) Insulin [place], Disposable, (BD ULTRA-FINE FADY PEN NEEDLE) 32 gauge x 5/32 Use one needle for each dose. 1-2 /day. albuterol HFA (PROVENTIL HFA, VENTOLIN HFA) 90 mcg/actuation inhaler Inhale 2 Puffs as instructed four times daily as needed. FOR WHEEZING AND SHORTNESS OF BREATH. COMPOUNDED PRESCRIPTION Bi-PAP nose pads. (G47.33) THAIS treated with BiPAP (Patient not taking: Reported on 08/17/2022) ibuprofen 200 mg tablet Take 1-2 tablets by mouth four times daily as needed (Take with food.). --currently only needing 1 pill twice daily to help with cough Social History Tobacco Use Smoking status: Former Packs/day: 0.50 Years: 20.00 Additional pack years: 0.00 Total pack years: 10.00 Types: Cigarettes Quit date: 10/21/1998 Years since quittin.6 Smokeless tobacco: Never Vaping Use Vaping Use: Never used Substance Use Topics Alcohol use: Yes Comment: Rarely Drug use: No Family History Problem Relation Age of Onset Heart Father Lipids Father Lipids Mother Hypertension Mother Heart Mother Breast Cancer Maternal Grandmother other (MS) Sister No Known Problems Son PAST SURGICAL HISTORY Procedure Laterality Date AFTER CATARACT LASER SURGERY 2002 CHOLECYSTECTOMY Cholecystectomy COLONOSCOPY 10/29/2021 repeat in 5 years COLONOSCOPY FLX DX W/COLLJ SPEC WHEN PFRMD 10/31/2002 Colonoscopy COLONOSCOPY FLX DX W/COLLJ SPEC WHEN PFRMD 10/13/2010 ESOPHAGOGASTRODUODENOSCOPY TRANSORAL DIAGNOSTIC 01/17/2013 EGD EYE SURGERY HX FIXATION OF ANKLE JOINT Right 02/2016 FRACTURE SURGERY HEART CATHETERIZATION 01/2012 HERNIA REPAIR HX IMPLANT MESH OPN HERNIA RPR/DEBRIDEMENT CLOSURE 04/10/2013 LIG/TRNSXJ FLP TUBE ABDL/VAG APPR UNI/BI PAST SURGICAL HISTORY OF 08/24/1992 endometrial biopsy S IMPLANT INTRAOC LENS-HOYA 90s SKIN BX, 1 LESION 01/15/2008 Right mid check TONSILLECTOMY HX childhood I reviewed the past medical history, family history, social history and surgical history with changes noted above and updated in EMR. IMMUNIZATIONS Prevnar - 2015 Pneumovax - 2013 Influenza - xx COVID-19 - xx ROS: General: No fevers, chills or night sweats. No unintended weight loss. Eyes, Ears, nose, throat: No post nasal drip, rhinorrhea, purulent nasal discharge. No epistaxis. Hoarseness. Vision stable. Cardiac: No angina, edema, orthopnea. Resp: See HPI. GI: No heartburn, dysphagia. Musculoskeletal: Joint pain that is intermittent and in different joints. Neuro: No headache, focal weakness, tremor. Skin: No new skin change or rash. Otherwise negative. PHYSICAL EXAMINATION: BP 122/84 (BP Site: Right Arm, BP Position: Sitting, BP Cuff Size: Regular Adult) Pulse (!) 57 Resp 17 SpO2 96% Gen: No acute distress. Cooperative with examination. Morbidly obese. HEENT: Normocephalic. Sclera, conjunctiva clear. Oral hygeine and dentition good. No thrush. Resp: No stridor, accessory respiratory muscle use, supra-sternal or intercostal retractions. No wheezes, crackles. CV: Regular rythm. Heart tones normal. Radial pulses normal. MSK: No kyphoscoliosis. Ext: Warm and well perfused. No clubbing, cyanosis, edema. Skin: No rash, ecchymoses. Neuro: Mental status normal. Affect normal. No tremor. DATA: Oximetry, 06/23/2023 Oximetry with Ambulation Test for This Encounter O2 Device O2 Adapter NC O2 Flow SpO2% HR Activity Ft Walked (ft) Time (min) Avg Speed (MPH) R/A 96 59 Resting R/A 93 85 Walking, usual pace 260 3 0.98 Exhaled nitric oxide (Ivette), 06/23/2023: 16 (normal < 20). 04/30/2021 45.0 (A) 02/23/2019 24.0 04/18/2017 56.0 (A) PFT, 06/23/2023 CXR, 05/28/2023 [facility] FINDINGS: The lungs are clear and expanded. There is no demonstrated pleural abnormality. There is mild cardiac enlargement. Normal mediastinum and christie. Normal visualized pulmonary arteries. There is atherosclerotic calcification of the aortic arch with tortuosity. Normal visualized thoracic spine. Normal visualized ribs, clavicles, and shoulders. There is no demonstrated abnormality of the visualized soft tissue structures of the upper abdomen. RAD/Chest 1 View (Portable) IMPRESSION: Nonacute portable x-ray examination of the chest. STOP BANG Questionnaire 1. Snoring Do you snore loudly (louder than talking or loud enough to be heard through closed doors)? NO 2. Tired Do you often feel tired, fatigued, or sleepy during daytime? YES 3. Observed Has anyone observed you stop breathing during your sleep? NO 4. Blood Pressure Do you have or are you being treated for high blood pressure? YES 5. BMI BMI more than 35 kg/m2? YES 6. Age Age over 50 yr old? YES 7. Neck circumference Neck circumference greater than 40 cm? YES 8. Gender Gender male? NO * Neck circumference is measured by staff High risk of THAIS: answering yes to three or more items Low risk of THAIS: answering yes to less than three items ASSESSMENT/PLAN: 1. Severe persistent asthma without complication - ICD9: 493.90, ICD10: J45.50 (primary diagnosis) Updated PFTs and nitric oxide today. Symptomatically stable on Symbicort with as needed Albuterol. Based on oximetry today patient is not requiring supplemental oxygen during the day. Will check nocturnal oximetry on RA. Patient is at high risk for THAIS, however, she is hesitant to have a PSG done. Last PSG in 2013 demonstrated THAIS and patient was placed on BiPAP. With review of her records it appears that BiPAP did not completely normalize her AHI. She has not been wearing it for years secondary to intolerance of the mask. - OXIMETRY WITH AMBULATION - OXIMETRY - NOCTURNAL - SPIROMETRY BASELINE ONLY - NITRIC OXIDE, EXHALED 2. Obesity, Class III, BMI 40-49.9 (morbid obesity) (HCC) - ICD9: 278.01, ICD10: E66.01 Weight loss advised. Portions of this documentation were copied and pasted from previous office visit notes in order to provide a cohesive continuity of the history. The note has been reviewed and edited and updated as necessary. Tierney Helm PA-C documented in this encounter [facility] 06-14-2023 Miscellaneous Notes Patient has been identified by name and date of : Yes, Provider Dr. Reza Date 06/14 Time 0845 Patient phones for refill(s): Requested Prescriptions Pending Prescriptions Disp Refills budesonide-formoterol (SYMBICORT) 160-4.5 mcg/actuation inhaler 1 Each 5 Sig: Inhale 2 Puffs as instructed two times a day. Date of last office visit in primary care: 05/23/2023 Date of next office visit in primary care: 09/21/2023 Last 2 Encounter Wt Readings: Date: Wt: 05/23/2023 154.2 kg (340 lb) 05/16/2023 153.8 kg (339 lb) Previous labs/tests for medication: Not applicable Please advise. Thank you. Call pt only if problem. Gloria Rand RN. documented in this encounter [facility] 05-23-2023 Note HNO ID: [id number] Author: Octavio Reza MD Service: ? Author Type: Physician Type: Progress Notes Filed: 06/25/2023 10:51 PM Note Text: This note was created using [employer]. Subjective Shereen Seals is a 77 year old female. Patient presents with: F/U 4 month: Labs prior SUBJECTIVE: Shereen Seals is a 77 year old year old lady here today for 4 month follow up appointment for review of medical conditions. Had low sugar this AM at 69. Able to get juice. Reviewed had bad experience at [facility]. Noted saw Dr. Lees. Working on increasing exercise. Had worried about weight going up but snacking out of boredom. Lymph nodes noted. Associated with psoriasis. Was treated spots of psoriasis that was treating with topical. Worse when stressed. Did use Nizoral shampoo. Helped but thought only once a week. See assessment and plan for other issues addressed. PAST MEDICAL HISTORY Diagnosis Date Adverse reaction to HMG-CoA reductase inhibitor 06/07/2022 Historical: see allergies Anal or rectal pain proctalgia Ankle fracture, right 03/06/2016 Anxiety state, unspecified Asthma Benign neoplasm of colon Charcot foot due to diabetes mellitus (HCC) Depressive disorder, not elsewhere classified DIABETES TYPE I W MANIF NOS 09/15/2005 Disorder of bone and cartilage, unspecified Esophageal reflux Essential hypertension, benign Incisional hernia 01/04/2013 Internal hemorrhoids without mention of complication Mitral valve disorders(424.0) Obesity, unspecified Other and unspecified hyperlipidemia Other seborrheic keratosis 10/12/2006 Rosacea 09/06/2007 Unspecified asthma(493.90) 11/2013 PFTs. 09/2013 and 10/2013 Ivette. Vitamin D deficiency 08/21/2010 Current Outpatient Medications Medication Sig zolpidem (AMBIEN) 5 mg tablet Take 0.5-1 tablets by mouth at bedtime as needed for up to 90 days. insulin glargine 100 unit/mL (3 mL) Inject 27 Units subcutaneously daily at bedtime. Give Lantus, not Basaglar per patient preference (Patient taking differently: Inject 24 Units subcutaneously daily at bedtime. Give Lantus, not Basaglar per patient preference) metoprolol tartrate, short acting, (LOPRESSOR) 50 mg tablet Take 1/2 tablet by mouth twice a day furosemide (LASIX) 20 mg tablet Take 1 tablet by mouth once daily as needed. (Patient taking differently: Take 10 mg by mouth once daily as needed.) amLODIPine (NORVASC) 10 mg tablet Take 0.5 tablets by mouth once daily. blood sugar diagnostic (BLOOD GLUCOSE TEST) test strip Test blood sugar(s) 8 times daily--Medically Necessary for labile blood sugars (highs and lows). Dx: Other DM Code E10.8, E11.610 Insulin: Yes insulin NPH injection (HumuLIN N,NovoLIN N) Inject 15-20 Units subcutaneously daily with breakfast. Dispense 6 vials (3 months supply) budesonide-formoterol (SYMBICORT) 160-4.5 mcg/actuation inhaler Inhale 2 Puffs as instructed twice daily. ramipril (ALTACE) 10 mg capsule Take 1 capsule by mouth twice daily. insulin aspart U-100 (NOVOLOG U-100 INSULIN ASPART) 100 unit/mL Inject 3-10 Units subcutaneously three times daily before meals. As directed Insulin [place], Disposable, (BD ULTRA-FINE FADY PEN NEEDLE) 32 gauge x Use one needle for each dose. 1-2 /day. albuterol HFA (PROVENTIL HFA, VENTOLIN HFA) 90 mcg/actuation inhaler Inhale 2 Puffs as instructed four times daily as needed. FOR WHEEZING AND SHORTNESS OF BREATH. ibuprofen 200 mg tablet Take 1-2 tablets by mouth four times daily as needed (Take with food.). --currently only needing 1 pill twice daily to help with cough mometasone (ELOCON) 0.1 % cream Apply to affected area once daily as needed (for scalp psoriasis). For 14 days. Treat for recurrences. Apply at bedtime then wash off in the morning (Patient not taking: Reported on 05/23/2023) flash glucose sensor (FREESTYLE JULITA 2 SENSOR) kit Apply new sensor every fourteen (14) days to upper arm. (Patient not taking: Reported on 05/23/2023) L. acidophilus/Bifid. animalis (DAILY PROBIOTIC ORAL) Take 1 capsule by mouth once daily. (Patient not taking: Reported on 09/07/2022) cholecalciferol, Vitamin D3, (VITAMIN D3) 1,250 mcg (50,000 unit) cap capsule Take 1 capsule by mouth one time a week. (Patient not taking: Reported on 05/23/2023) COMPOUNDED PRESCRIPTION Bi-PAP nose pads. (G47.33) THAIS treated with BiPAP (Patient not taking: Reported on 08/17/2022) No current facility-administered medications for this visit. Review of Systems Objective BP 128/82 Pulse 68 Temp 36.2 ?C (97.2 ?F) Resp 18 Wt (!) 154.2 kg (340 lb) SpO2 98% BMI 49.49 kg/m? Last 5 Encounter Wt Readings: Date: Wt: 05/23/2023 154.2 kg (340 lb) 05/16/2023 153.8 kg (339 lb) 11/12/2022 151 kg (333 lb) 10/05/2022 151 kg (333 lb) 05/18/2022 0 kg () No waist measurement recorded Estimated body mass index is 49.49 kg/m? as calculated from the following: Height as of 05/16/23: 176.5 cm (5' 9.5 ). Weight (more content not included)... [facility] 05-23-2023 Instructions Octavio Reza MD - 05/23/2023 2:53 PM EST Biking--keep up every day. Work up from 8 minutes to 10 minutes. Gradually increase up to 15 minutes then after than 20 minutes. Might be every 2 to 4 weeks make an increase. Decrease insulin with meals if having to eat between meal to keep sugars up. Get more protein and less processed carbs for meals and snacks. Lower night time glargine (Lantus) if having sugars more often below 80; consider decreasing dose to let sugars stay below 130. Use and frequency of medicated shampoos - Five to 10 mL of shampoo should be left on for three to five minutes before rinsing off. Ketoconazole shampoo or other antifungal shampoos should be used two to three times per week for two to four weeks in the initial treatment phase. Subsequently, the use of the medicated shampoo can be reduced to once a week to prevent relapse [30]. Minor adverse effects, such as irritation and/or burning sensation, are common with antifungal shampoo [31,32]. documented in this encounter [facility] 05-23-2023 History of Presen t illness Narrative This note was created using [employer]. Subjective Shereen Seals is a 77 year old female. Patient presents with: F/U 4 month: Labs prior SUBJECTIVE: Shereen Seals is a 77 year old year old lady here today for 4 month follow up appointment for review of medical conditions. Had low sugar this AM at 69. Able to get juice. Reviewed had bad experience at [facility]. Noted saw Dr. Lees. Working on increasing exercise. Had worried about weight going up but snacking out of boredom. Lymph nodes noted. Associated with psoriasis. Was treated spots of psoriasis that was treating with topical. Worse when stressed. Did use Nizoral shampoo. Helped but thought only once a week. See assessment and plan for other issues addressed. PAST MEDICAL HISTORY Diagnosis Date Adverse reaction to HMG-CoA reductase inhibitor 06/07/2022 Historical: see allergies Anal or rectal pain proctalgia Ankle fracture, right 03/06/2016 Anxiety state, unspecified Asthma Benign neoplasm of colon Charcot foot due to diabetes mellitus (HCC) Depressive disorder, not elsewhere classified DIABETES TYPE I W MANIF NOS 09/15/2005 Disorder of bone and cartilage, unspecified Esophageal reflux Essential hypertension, benign Incisional hernia 01/04/2013 Internal hemorrhoids without mention of complication Mitral valve disorders(424.0) Obesity, unspecified Other and unspecified hyperlipidemia Other seborrheic keratosis 10/12/2006 Rosacea 09/06/2007 Unspecified asthma(493.90) 11/2013 PFTs. 09/2013 and 10/2013 Ivette. Vitamin D deficiency 08/21/2010 Current Outpatient Medications Medication Sig zolpidem (AMBIEN) 5 mg tablet Take 0.5-1 tablets by mouth at bedtime as needed for up to 90 days. insulin glargine 100 unit/mL (3 mL) Inject 27 Units subcutaneously daily at bedtime. Give Lantus, not Basaglar per patient preference (Patient taking differently: Inject 24 Units subcutaneously daily at bedtime. Give Lantus, not Basaglar per patient preference) metoprolol tartrate, short acting, (LOPRESSOR) 50 mg tablet Take 1/2 tablet by mouth twice a day furosemide (LASIX) 20 mg tablet Take 1 tablet by mouth once daily as needed. (Patient taking differently: Take 10 mg by mouth once daily as needed.) amLODIPine (NORVASC) 10 mg tablet Take 0.5 tablets by mouth once daily. blood sugar diagnostic (BLOOD GLUCOSE TEST) test strip Test blood sugar(s) 8 times daily--Medically Necessary for labile blood sugars (highs and lows). Dx: Other DM Code E10.8, E11.610 Insulin: Yes insulin NPH injection (HumuLIN N,NovoLIN N) Inject 15-20 Units subcutaneously daily with breakfast. Dispense 6 vials (3 months supply) budesonide-formoterol (SYMBICORT) 160-4.5 mcg/actuation inhaler Inhale 2 Puffs as instructed twice daily. ramipril (ALTACE) 10 mg capsule Take 1 capsule by mouth twice daily. insulin aspart U-100 (NOVOLOG U-100 INSULIN ASPART) 100 unit/mL Inject 3-10 Units subcutaneously three times daily before meals. As directed Insulin [place], Disposable, (BD ULTRA-FINE FADY PEN NEEDLE) 32 gauge x Use one needle for each dose. 1-2 /day. albuterol HFA (PROVENTIL HFA, VENTOLIN HFA) 90 mcg/actuation inhaler Inhale 2 Puffs as instructed four times daily as needed. FOR WHEEZING AND SHORTNESS OF BREATH. ibuprofen 200 mg tablet Take 1-2 tablets by mouth four times daily as needed (Take with food.). --currently only needing 1 pill twice daily to help with cough mometasone (ELOCON) 0.1 % cream Apply to affected area once daily as needed (for scalp psoriasis). For 14 days. Treat for recurrences. Apply at bedtime then wash off in the morning (Patient not taking: Reported on 05/23/2023) flash glucose sensor (FREESTYLE JULITA 2 SENSOR) kit Apply new sensor every fourteen (14) days to upper arm. (Patient not taking: Reported on 05/23/2023) L. acidophilus/Bifid. animalis (DAILY PROBIOTIC ORAL) Take 1 capsule by mouth once daily. (Patient not taking: Reported on 09/07/2022) cholecalciferol, Vitamin D3, (VITAMIN D3) 1,250 mcg (50,000 unit) cap capsule Take 1 capsule by mouth one time a week. (Patient not taking: Reported on 05/23/2023) COMPOUNDED PRESCRIPTION Bi-PAP nose pads. (G47.33) THAIS treated with BiPAP (Patient not taking: Reported on 08/17/2022) No current facility-administered medications for this visit. Review of Systems Objective BP 128/82 Pulse 68 Temp 36.2 C (97.2 F) Resp 18 Wt (!) 154.2 kg (340 lb) SpO2 98% BMI 49.49 kg/m Last 5 Encounter Wt Readings: Date: Wt: 05/23/2023 154.2 kg (340 lb) 05/16/2023 153.8 kg (339 lb) 11/12/2022 151 kg (333 lb) 10/05/2022 151 kg (333 lb) 05/18/2022 0 kg () No waist measurement recorded Estimated body mass index is 49.49 kg/m as calculated from the following: Height as of 05/16/23: 176.5 cm (5' 9.5 ). Weight as of this encounter: 154.2 kg (340 lb). Last 5 Encounter BP Readings: Date: BP: 05/23/2023 128/82 05/16/2023 124/73 01/17/2023 122/69 11/12/2022 134/60 10/05/2022 138/62 Physical Exam Constitutional: Appearance: Normal appearance. She is obese. HENT: Head: Normocephalic. Eyes: Conjunctiva/sclera: Conjunctivae normal. Cardiovascular: Rate and Rhythm: Normal rate and regular rhythm. Heart sounds: Normal heart sounds. Pulmonary: Effort: Pulmonary effort is normal. Breath sounds: Normal breath sounds. Musculoskeletal: Right lower leg: Edema present. Left lower leg: Edema present. Comments: WeARS BRACES ON BOTH LEGS; IN w/c Skin: General: Skin is warm and dry. Neurological: General: No focal deficit present. Mental Status: She is alert and oriented to person, place, and time. Psychiatric: Mood and Affect: Mood normal. Behavior: Behavior normal. Thought Content: Thought content normal. Judgment: Judgment normal. Assessment and Plan Encounter Diagnosis ICD-10-CM 1. 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) E10.8 COMP METABOLIC PANEL HGB A1C insulin aspart U-100 (NOVOLOG U-100 INSULIN ASPART) 100 unit/mL insulin NPH injection 2. Essential hypertension I10 CBC ramipril (ALTACE) 10 mg capsule 3. Psoriasis of scalp L40.9 Can be exacerbated by stress. Has topical steroid and Nizoral shampoo--discussed may use more than once weekly 4. Vitamin D deficiency E55.9 VITAMIN D 25 HYDROXY dropping when switched to OTC Vitamin D 5. Class 3 severe obesity due to excess calories with body mass index (BMI) of 45.0 to 49.9 in adult, unspecified whether serious comorbidity present (HCC) E66.01 Z68.42 Continue efforts at healthier diet. Stay as active as able despite physical limitations 6. Charcot foot due to diabetes mellitus (HCC) E11.610 7. Encounter for immunization Z23 INFLUENZA VACCINE, PRSV FREE, AGE 65+ YR, HIGH DOSE, QUADRIVALENT (FLUZONE HIGH-DOSE) Above issues addressed with patient. Patient involved in shared decision making for management of medical issues. History and medications reviewed. Epic updated as needed Refills and/or prescriptions taken care of and meds adjusted as indicated after reviewed history, exam and labs. Health Maintenance reviewed. Updated record and/or ordered tests as recorded. Encouraged on efforts at healthy diet and regular exercise and adequate sleep. I spent a total of at least 50 minutes on the date of the service which included [id number] patient care, completing clinical documentation, obtaining and/or reviewing separately obtained history, performing a medically appropriate examination, counseling and educating the patient/family/caregiver, ordering medications, tests, or procedures, independently interpreting results (not separately reported), and communicating results to the patient/family/caregiver. Octavio Reza MD documented in this encounter [facility] 05-16-2023 Note HNO ID: [id number] Author: Anant Lees MD Service: ? Author Type: Physician Type: Progress Notes Filed: 05/16/2023 10:02 AM Note Text: Anant Lees MD Interventional Cardiology [address] [place] [address] Chief Complaint Patient presents with: New Patient: Palpitations HISTORY OF PRESENT ILLNESS: Ms. Seals is a 77 year old female seen in my office for assessment and management of supraventricular tachycardia and palpitation prior history of hypertensive heart disease patient doing well from the cardiac point of view on current medication No angina no symptoms or signs of congestive heart failure Cardiac Risk Factors age (male over 45, female over 55), obesity, diabetes, hypertension, family history of CAD PAST MEDICAL HISTORY Diagnosis Date Adverse reaction to HMG-CoA reductase inhibitor 06/07/2022 Historical: see allergies Anal or rectal pain proctalgia Ankle fracture, right 03/06/2016 Anxiety state, unspecified Asthma Benign neoplasm of colon Charcot foot due to diabetes mellitus (HCC) Depressive disorder, not elsewhere classified DIABETES TYPE I W MANIF NOS 09/15/2005 Disorder of bone and cartilage, unspecified Esophageal reflux Essential hypertension, benign Incisional hernia 01/04/2013 Internal hemorrhoids without mention of complication Mitral valve disorders(424.0) Obesity, unspecified Other and unspecified hyperlipidemia Other seborrheic keratosis 10/12/2006 Rosacea 09/06/2007 Unspecified asthma(493.90) 11/2013 PFTs. 09/2013 and 10/2013 Ivette. Vitamin D deficiency 08/21/2010 PAST SURGICAL HISTORY Procedure Laterality Date AFTER CATARACT LASER SURGERY 2002 CHOLECYSTECTOMY Cholecystectomy COLONOSCOPY 10/29/2021 repeat in 5 years COLONOSCOPY FLX DX W/COLLJ SPEC WHEN PFRMD 10/31/2002 Colonoscopy COLONOSCOPY FLX DX W/COLLJ SPEC WHEN PFRMD 10/13/2010 ESOPHAGOGASTRODUODENOSCOPY TRANSORAL DIAGNOSTIC 01/17/2013 EGD EYE SURGERY HX FIXATION OF ANKLE JOINT Right 02/2016 FRACTURE SURGERY HEART CATHETERIZATION 01/2012 HERNIA REPAIR HX IMPLANT MESH OPN HERNIA RPR/DEBRIDEMENT CLOSURE 04/10/2013 LIG/TRNSXJ FLP TUBE ABDL/VAG APPR UNI/BI PAST SURGICAL HISTORY OF 08/24/1992 endometrial biopsy S IMPLANT INTRAOC LENS-HOYA 90s SKIN BX, 1 LESION 01/15/2008 Right mid check TONSILLECTOMY HX childhood FAMILY HISTORY Problem Relation Age of Onset Heart Father Lipids Father Lipids Mother Hypertension Mother Heart Mother Breast Cancer Maternal Grandmother other (MS) Sister No Known Problems Son Social History Tobacco Use Smoking status: Former Packs/day: 0.50 Years: 20.00 Additional pack years: 0.00 Total pack years: 10.00 Types: Cigarettes Quit date: 10/21/1998 Years since quittin.5 Smokeless tobacco: Never Vaping Use Vaping Use: Never used Substance Use Topics Alcohol use: Yes Comment: Rarely Drug use: No ALLERGIES Allergen Reactions Escitalopram Intolerance Fatigued after just a half pill dose. Did not want to take anymore. Hctz [Amiloride-Hyd* Other: See Comments Rapid heart beat, nausea, light headed. ( lasted about 12 hours after first dose. Tylenol-Codeine #3 * Vomiting Crestor [Rosuvastat* Intolerance stomach upset even on half of 5 mg pill twice a week Doxycycline GI Upset Lipitor [Atorvastat* Myalgia leg pain Pravastatin GI Upset 10mg dose upset stomach Simvastatin Myalgia Even when cut dose down, still had muscle aches. Had tolerated for years before developed leg pain Did not tolerate even half pill 3 times weekly with last 2 prescriptions Tolerating 1/4 tablet every other day for past few days Naprosyn [Naproxen] GI Upset Nausea Ventolin [Albuterol* GI Upset, Vomiting Medications: Current Outpatient Medications Medication Sig Dispense Refill zolpidem (AMBIEN) 5 mg tablet Take 0.5-1 tablets by mouth at bedtime as needed for up to 90 days. 30 tablet 2 insulin glargine 100 unit/mL (3 mL) Inject 27 Units subcutaneously daily at bedtime. Give Lantus, not Basaglar per patient preference 5 Each 11 metoprolol tartrate, short acting, (LOPRESSOR) 50 mg tablet Take 1/2 tablet by mouth twice a day 90 tablet 3 furosemide (LASIX) 20 mg tablet Take 1 tablet by mouth once daily as needed. 90 tablet 3 amLODIPine (NORVASC) 10 mg tablet Take 0.5 tablets by mouth once daily. 90 tablet 3 blood sugar diagnostic (BLOOD GLUCOSE TEST) test strip Test blood sugar(s) 8 times daily--Medically Necessary for labile blood sugars (highs and lows). Dx: Other DM Code E10.8, E11.610 Insulin: Yes 200 Strip 11 mometasone (ELOCON) 0.1 % cream Apply to affected area once daily as needed (for scalp psoriasis). For 14 days. Treat for recurrences. Apply at bedtime then wash off in the morning 45 g 1 flash glucose sensor (FREESTYLE JULIAT 2 SENSOR) kit Apply new sensor every fourteen (14) days to upper arm. 6 Each 4 insulin NPH injection (HumuLIN N,Deidra (more content not included)... [facility] 05-16-2023 History of Presen t illness Narrative Images from the original note were not included. Anant Lees MD Interventional Cardiology [address] [place] [address] Chief Complaint Patient presents with: New Patient: Palpitations HISTORY OF PRESENT ILLNESS: Ms. Seals is a 77 year old female seen in my office for assessment and management of supraventricular tachycardia and palpitation prior history of hypertensive heart disease patient doing well from the cardiac point of view on current medication No angina no symptoms or signs of congestive heart failure Cardiac Risk Factors age (male over 45, female over 55), obesity, diabetes, hypertension, family history of CAD PAST MEDICAL HISTORY Diagnosis Date Adverse reaction to HMG-CoA reductase inhibitor 06/07/2022 Historical: see allergies Anal or rectal pain proctalgia Ankle fracture, right 03/06/2016 Anxiety state, unspecified Asthma Benign neoplasm of colon Charcot foot due to diabetes mellitus (HCC) Depressive disorder, not elsewhere classified DIABETES TYPE I W MANIF NOS 09/15/2005 Disorder of bone and cartilage, unspecified Esophageal reflux Essential hypertension, benign Incisional hernia 01/04/2013 Internal hemorrhoids without mention of complication Mitral valve disorders(424.0) Obesity, unspecified Other and unspecified hyperlipidemia Other seborrheic keratosis 10/12/2006 Rosacea 09/06/2007 Unspecified asthma(493.90) 11/2013 PFTs. 09/2013 and 10/2013 Ivette. Vitamin D deficiency 08/21/2010 PAST SURGICAL HISTORY Procedure Laterality Date AFTER CATARACT LASER SURGERY 2002 CHOLECYSTECTOMY Cholecystectomy COLONOSCOPY 10/29/2021 repeat in 5 years COLONOSCOPY FLX DX W/COLLJ SPEC WHEN PFRMD 10/31/2002 Colonoscopy COLONOSCOPY FLX DX W/COLLJ SPEC WHEN PFRMD 10/13/2010 ESOPHAGOGASTRODUODENOSCOPY TRANSORAL DIAGNOSTIC 01/17/2013 EGD EYE SURGERY HX FIXATION OF ANKLE JOINT Right 02/2016 FRACTURE SURGERY HEART CATHETERIZATION 01/2012 HERNIA REPAIR HX IMPLANT MESH OPN HERNIA RPR/DEBRIDEMENT CLOSURE 04/10/2013 LIG/TRNSXJ FLP TUBE ABDL/VAG APPR UNI/BI PAST SURGICAL HISTORY OF 08/24/1992 endometrial biopsy S IMPLANT INTRAOC LENS-HOYA 90s SKIN BX, 1 LESION 01/15/2008 Right mid check TONSILLECTOMY HX childhood FAMILY HISTORY Problem Relation Age of Onset Heart Father Lipids Father Lipids Mother Hypertension Mother Heart Mother Breast Cancer Maternal Grandmother other (MS) Sister No Known Problems Son Social History Tobacco Use Smoking status: Former Packs/day: 0.50 Years: 20.00 Additional pack years: 0.00 Total pack years: 10.00 Types: Cigarettes Quit date: 10/21/1998 Years since quittin.5 Smokeless tobacco: Never Vaping Use Vaping Use: Never used Substance Use Topics Alcohol use: Yes Comment: Rarely Drug use: No ALLERGIES Allergen Reactions Escitalopram Intolerance Fatigued after just a half pill dose. Did not want to take anymore. Hctz [Amiloride-Hyd* Other: See Comments Rapid heart beat, nausea, light headed. ( lasted about 12 hours after first dose. Tylenol-Codeine #3 * Vomiting Crestor [Rosuvastat* Intolerance stomach upset even on half of 5 mg pill twice a week Doxycycline GI Upset Lipitor [Atorvastat* Myalgia leg pain Pravastatin GI Upset 10mg dose upset stomach Simvastatin Myalgia Even when cut dose down, still had muscle aches. Had tolerated for years before developed leg pain Did not tolerate even half pill 3 times weekly with last 2 prescriptions Tolerating 1/4 tablet every other day for past few days Naprosyn [Naproxen] GI Upset Nausea Ventolin [Albuterol* GI Upset, Vomiting Medications: Current Outpatient Medications Medication Sig Dispense Refill zolpidem (AMBIEN) 5 mg tablet Take 0.5-1 tablets by mouth at bedtime as needed for up to 90 days. 30 tablet 2 insulin glargine 100 unit/mL (3 mL) Inject 27 Units subcutaneously daily at bedtime. Give Lantus, not Basaglar per patient preference 5 Each 11 metoprolol tartrate, short acting, (LOPRESSOR) 50 mg tablet Take 1/2 tablet by mouth twice a day 90 tablet 3 furosemide (LASIX) 20 mg tablet Take 1 tablet by mouth once daily as needed. 90 tablet 3 amLODIPine (NORVASC) 10 mg tablet Take 0.5 tablets by mouth once daily. 90 tablet 3 blood sugar diagnostic (BLOOD GLUCOSE TEST) test strip Test blood sugar(s) 8 times daily--Medically Necessary for labile blood sugars (highs and lows). Dx: Other DM Code E10.8, E11.610 Insulin: Yes 200 Strip 11 mometasone (ELOCON) 0.1 % cream Apply to affected area once daily as needed (for scalp psoriasis). For 14 days. Treat for recurrences. Apply at bedtime then wash off in the morning 45 g 1 flash glucose sensor (FREESTYLE JULITA 2 SENSOR) kit Apply new sensor every fourteen (14) days to upper arm. 6 Each 4 insulin NPH injection (HumuLIN N,NovoLIN N) Inject 15-20 Units subcutaneously daily with breakfast. Dispense 6 vials (3 months supply) 18 mL 3 budesonide-formoterol (SYMBICORT) 160-4.5 mcg/actuation inhaler Inhale 2 Puffs as instructed twice daily. 1 Each 5 ramipril (ALTACE) 10 mg capsule Take 1 capsule by mouth twice daily. 180 capsule 3 insulin aspart U-100 (NOVOLOG U-100 INSULIN ASPART) 100 unit/mL Inject 3-10 Units subcutaneously three times daily before meals. As directed 30 mL 4 cholecalciferol, Vitamin D3, (VITAMIN D3) 1,250 mcg (50,000 unit) cap capsule Take 1 capsule by mouth one time a week. 12 capsule 4 Insulin [place], Disposable, (BD ULTRA-FINE FADY PEN NEEDLE) 32 gauge x /32 Use one needle for each dose. 1-2 /day. 100 Each 11 albuterol HFA (PROVENTIL HFA, VENTOLIN HFA) 90 mcg/actuation inhaler Inhale 2 Puffs as instructed four times daily as needed. FOR WHEEZING AND SHORTNESS OF BREATH. 6.7 g 11 ibuprofen 200 mg tablet Take 1-2 tablets by mouth four times daily as needed (Take with food.). --currently only needing 1 pill twice daily to help with cough L. acidophilus/Bifid. animalis (DAILY PROBIOTIC ORAL) Take 1 capsule by mouth once daily. (Patient not taking: Reported on 09/07/2022) COMPOUNDED PRESCRIPTION Bi-PAP nose pads. (G47.33) THAIS treated with BiPAP (Patient not taking: Reported on 08/17/2022) 2 Device 1 No current facility-administered medications for this visit. Review of Systems Constitutional: Negative for chills, diaphoresis, fever, malaise/fatigue and weight loss. HENT: Negative for congestion, ear discharge, ear pain, hearing loss, nosebleeds, sinus pain, sore throat and tinnitus. Eyes: Negative for blurred vision, double vision, photophobia, pain, discharge and redness. Respiratory: Negative for cough, hemoptysis, sputum production, shortness of breath, wheezing and stridor. Cardiovascular: Negative for chest pain, palpitations, orthopnea, claudication, leg swelling and PND. Gastrointestinal: Negative for abdominal pain, blood in stool, constipation, diarrhea, heartburn, melena, nausea and vomiting. Genitourinary: Negative for dysuria, flank pain, frequency, hematuria and urgency. Musculoskeletal: Negative for back pain, falls, joint pain, myalgias and neck pain. Skin: Negative for itching and rash. Neurological: Negative for dizziness, tingling, tremors, sensory change, speech change, focal weakness, seizures, loss of consciousness, weakness and headaches. Endo/Heme/Allergies: Negative for environmental allergies and polydipsia. Does not bruise/bleed easily. Psychiatric/Behavioral: Negative for depression, hallucinations, memory loss, substance abuse and suicidal ideas. The patient is not nervous/anxious and does not have insomnia. Physical Examination: Vitals:BP 124/73 Pulse 60 Ht 5' 9.5 (1.77m) Wt 339 lb (153.8kg) SpO2 97% BMI 49.36 kg/(m^2). BP w/Orthostatic Vitals Date and Time Orthostatic BP Orthostatic Pulse BP Pulse BP Position BP Site BP Cuff Size 05/16/23 0930 -- -- 124/73 60 -- -- -- Last 2 Encounter Wt Readings: Date: Wt: 05/16/2023 153.8 kg (339 lb) 11/12/2022 151 kg (333 lb) Physical Exam Constitutional: General: She is not in acute distress. Appearance: She is not diaphoretic. HENT: Head: Normocephalic and atraumatic. Right Ear: External ear normal. Left Ear: External ear normal. Nose: Nose normal. Mouth/Throat: Pharynx: Oropharynx is clear. Eyes: General: Right eye: No discharge. Left eye: No discharge. Conjunctiva/sclera: Conjunctivae normal. Pupils: Pupils are equal, round, and reactive to light. Cardiovascular: Rate and Rhythm: Normal rate and regular rhythm. Heart sounds: Normal heart sounds, S1 normal and S2 normal. No murmur heard. No friction rub. No gallop. No S3 or S4 sounds. Pulmonary: Effort: Pulmonary effort is normal. No respiratory distress. Breath sounds: Normal breath sounds. No wheezing or rales. Chest: Chest wall: No tenderness. Musculoskeletal: General: Normal range of motion. Cervical back: Normal range of motion and neck supple. Skin: General: Skin is warm and dry. Neurological: Mental Status: She is alert and oriented to person, place, and time. Psychiatric: Mood and Affect: Mood normal. Thought Content: Thought content normal. Pertinent Labs: CBC: Hemoglobin (g/dL) Date Value 05/16/2023 13.0 09/11/2021 14.4 Hematocrit (%) Date Value 05/16/2023 39.8 09/11/2021 45.0 WBC (k/uL) Date Value 05/16/2023 6.03 09/11/2021 6.76 Platelet Count (k/uL) Date Value 05/16/2023 187 09/11/2021 204 BMP: Glucose (mg/dL) Date Value 09/14/2022 176 09/11/2021 88 Potassium (mmol/L) Date Value 09/14/2022 4.2 09/11/2021 4.3 Sodium (mmol/L) Date Value 09/14/2022 135 09/11/2021 140 Chloride (mmol/L) Date Value 09/14/2022 100 09/11/2021 102 CO2 (mmol/L) Date Value 09/14/2022 27 09/11/2021 25 Creatinine (mg/dL) Date Value 09/14/2022 0.72 09/11/2021 0.79 BUN (mg/dL) Date Value 09/14/2022 19 09/11/2021 19 Anion Gap (mmol/L) Date Value 09/14/2022 8 09/11/2021 13 Calcium (mg/dL) Date Value 09/11/2021 10.3 Calcium, Total (mg/dL) Date Value 09/14/2022 9.8 INR: Lipid Profile: Cholesterol, Total Date Value Ref Range Status 09/14/2022 186 <200 mg/dL Final Comment: <200 mg/dL, Desirable 200-239 mg/dL, Borderline high >239 mg/dL, High HDL Cholesterol Date Value Ref Range Status 09/14/2022 73 >39 mg/dL Final Comment: 40-59 mg/dL, Acceptable >59 mg/dL, High: Negative risk factor for coronary heart disease <40 mg/dL, Low: Positive risk factor for coronary heart disease LDL Cholesterol Date Value Ref Range Status 09/14/2022 98 <100 mg/dL Final Comment: <100 mg/dL, Optimal 100-129 mg/dL, Near optimal/above optimal 130-159 mg/dL, Borderline high 160-189 mg/dL, High >189 mg/dL, Very high Secondary prevention optimal LDL Cholesterol levels are recommended to be < 70 mg/dL Triglyceride Date Value Ref Range Status 09/14/2022 76 <150 mg/dL Final Comment: <150 mg/dL, Normal 150-199 mg/dL, Borderline high 200-499 mg/dL, High >499 mg/dL, Very high Hemoglobin A1C: No results found for: HGBA1C TSH: No results found for: TSHREFL Prior Cardiac Testing ECHO Assessment and Plan: 77 years old with supraventricular tachycardia and palpitation ASSESSMENT/PLAN: 1. Paroxysmal SVT (supraventricular tachycardia) - ICD9: 427.0, ICD10: I47.10 (primary diagnosis) Controlled well with beta-blockers - ECG COMPLETE 2. Palpitations - ICD9: 785.1, ICD10: R00.2 Controlled well with beta-ariella Anant Lees MD Follow up planning: ONE YEAR Electronically signed by Anant Lees MD on May 16, 2023, 9:54 AM The above note was partially created using a dictation recognition software. A reasonable attempt has been made to correct any errors. documented in this encounter [facility] 03-01-2023 Miscellaneous Notes Okayed [facility] 01/17/23 NOV 05/23/23 Charisse Yu MA Patient has been identified by name and date of : Yes Last office visit in this department: 10/23/2021 RX INSTRUCTIONS: Patient aware RX will be sent to pharmacy. No need to notify patient. Patient phones requesting refills as follows: Requested Prescriptions Pending Prescriptions Disp Refills insulin glargine 100 unit/mL (3 mL) 5 Each 11 Sig: Inject 27 Units subcutaneously daily at bedtime. Give Lantus, not Basaglar per patient preference metoprolol tartrate, short acting, (LOPRESSOR) 50 mg tablet 90 tablet 3 Sig: Take 1/2 tablet by mouth twice a day furosemide (LASIX) 20 mg tablet 90 tablet 3 Sig: Take 1 tablet by mouth once daily as needed. amLODIPine (NORVASC) 10 mg tablet 90 tablet 3 Sig: Take 0.5 tablets by mouth once daily. Please review and advise. Himanshu Bolden documented in this encounter [facility] 02-21-2023 Miscellaneous Notes Printed order and faxed to [facility] as requested. Phoned patient and aware order was faxed as requested. Filed order Fax order as requested Patient calling she had received her reminder from [facility] that she will need new order for 3 D mamm faxed to [phone]. Pending order to file. Please call patient when order has been faxed so she can schedule her appt at [facility]. Please advise documented in this encounter [facility] 01-17-2023 Note HNO ID: [id number] Author: Octavio Reza MD Service: ? Author Type: Physician Type: Progress Notes Filed: 02/21/2023 12:42 AM Note Text: This note was created using [employer]. Subjective Shereen Seals is a 77 year old female. Patient presents with: Follow Up: 4 month SUBJECTIVE: Shereen Seals is a 77 year old year old lady here today for 4 month follow up appointment for review of medical conditions. inflammatory things --rash that can be anywhere. Salve that was given has helped. Has affected eyes and mouth--would get red and flaky and eyes would get blood shot. Has noted on head. Behind ears can get swollen and into salp close to that area. Losing hair. No rash felt on scalp aside from being flaky. Tends to scratch a lot. Sometimes felt like bugs. Eyes might also hurt. Ibuprofen helps but recurs. Did see Dr. Brasher and eyes are fine. Current shampoo--Nexxus usually. Has been using Nioxin. Was in ER for palpitations. Question if adverse reactions related to antibiotics given. Amoxicillin, Cephalexin, Doxycycline, and one more. Had palpitations, GI upset. Generic of one of the meds caused reaction due to fillers in the past. Noted had a terrible time with [facility] in the hospital. Was bad. Ended up having psychotic episode. Recalls some of it. Was tied down at some point. Thought the place was burning down at one point. PAST MEDICAL HISTORY Diagnosis Date Adverse reaction to HMG-CoA reductase inhibitor 06/07/2022 Historical: see allergies Anal or rectal pain proctalgia Ankle fracture, right 03/06/2016 Anxiety state, unspecified Asthma Benign neoplasm of colon Charcot foot due to diabetes mellitus (HCC) Depressive disorder, not elsewhere classified DIABETES TYPE I W MANIF NOS 09/15/2005 Disorder of bone and cartilage, unspecified Esophageal reflux Essential hypertension, benign Incisional hernia 01/04/2013 Internal hemorrhoids without mention of complication Mitral valve disorders(424.0) Obesity, unspecified Other and unspecified hyperlipidemia Other seborrheic keratosis 10/12/2006 Rosacea 09/06/2007 Unspecified asthma(493.90) 11/2013 PFTs. 09/2013 and 10/2013 Ivette. Vitamin D deficiency 08/21/2010 Current Outpatient Medications Medication Sig zolpidem (AMBIEN) 5 mg tablet Take 0.5-1 tablets by mouth at bedtime as needed for up to 90 days. flash glucose sensor (FREESTYLE JULITA 2 SENSOR) kit Apply new sensor every fourteen (14) days to upper arm. L. acidophilus/Bifid. animalis (DAILY PROBIOTIC ORAL) Take 1 capsule by mouth once daily. (Patient not taking: No sig reported) insulin NPH injection (HumuLIN N,NovoLIN N) Inject 15-20 Units subcutaneously daily with breakfast. Dispense 6 vials (3 months supply) budesonide-formoterol (SYMBICORT) 160-4.5 mcg/actuation inhaler Inhale 2 Puffs as instructed twice daily. ramipril (ALTACE) 10 mg capsule Take 1 capsule by mouth twice daily. insulin aspart U-100 (NOVOLOG U-100 INSULIN ASPART) 100 unit/mL Inject 3-10 Units subcutaneously three times daily before meals. As directed blood sugar diagnostic (BLOOD GLUCOSE TEST) test strip Test blood sugar(s) 8 times daily--Medically Necessary for labile blood sugars (highs and lows). Dx: Other DM Code E10.8, E11.610 Insulin: Yes metoprolol tartrate, short acting, (LOPRESSOR) 50 mg tablet Take 1/2 tablet by mouth twice a day amLODIPine (NORVASC) 10 mg tablet Take 0.5 tablets by mouth once daily. insulin glargine (LANTUS SOLOSTAR, BASAGLAR KWIKPEN) 100 unit/mL (3 mL) Inject 27 Units subcutaneously daily at bedtime. Give Lantus, not Basaglar per patient preference (Patient taking differently: Inject 24 Units subcutaneously daily at bedtime. Give Lantus, not Basaglar per patient preference (Resuming Lantus at bedtime with N in the AM as before since as better controlled with this regimen)) cholecalciferol, Vitamin D3, (VITAMIN D3) 1,250 mcg (50,000 unit) cap capsule Take 1 capsule by mouth one time a week. furosemide (LASIX) 20 mg tablet Take 1 tablet by mouth once daily as needed. Insulin [place], Disposable, (BD ULTRA-FINE FADY PEN NEEDLE) 32 gauge x Use one needle for each dose. 1-2 /day. albuterol HFA (PROVENTIL HFA, VENTOLIN HFA) 90 mcg/actuation inhaler Inhale 2 Puffs as instructed four times daily as needed. FOR WHEEZING AND SHORTNESS OF BREATH. COMPOUNDED PRESCRIPTION Bi-PAP nose pads. (G47.33) THAIS treated with BiPAP (Patient not taking: No sig reported) ibuprofen 200 mg tablet Take 1-2 tablets by mouth four times daily as needed (Take with food.). --currently only needing 1 pill twice daily to help with cough No current facility-administered medications for this visit. Review of Systems Objective BP 122/69 Pulse 63 Temp 36.1 ?C (97 ?F) Resp 18 SpO2 96% Last 5 Encounter Wt Readings: Date: Wt: 11/12/2022 151 kg (333 lb) 10/05/2022 151 kg (333 lb) 05/18/2022 0 kg () 02/15/2022 (more content not included)... [facility] 01-17-2023 Instructions Octavio Reza MD - 01/17/2023 2:47 PM EDT Try baby shampoo (Aveeno for example). For psoriasis and may seborrheic dermatitis would try Nizoral shampoo--apply lather to scalp and let sit on scalp for 2 to 4 minutes before rinsing off. Can also use on face or body for scaly areas that can be from seborrheic dermatitis. Consider using conditioner mostly for cleansing hair and shampoo maybe just once a week. documented in this encounter [facility] 01-17-2023 History of Presen t illness Narrative This note was created using [employer]. Subjective Shereen Seals is a 77 year old female. Patient presents with: Follow Up: 4 month SUBJECTIVE: Shereen Seals is a 77 year old year old lady here today for 4 month follow up appointment for review of medical conditions. inflammatory things --rash that can be anywhere. Salve that was given has helped. Has affected eyes and mouth--would get red and flaky and eyes would get blood shot. Has noted on head. Behind ears can get swollen and into salp close to that area. Losing hair. No rash felt on scalp aside from being flaky. Tends to scratch a lot. Sometimes felt like bugs. Eyes might also hurt. Ibuprofen helps but recurs. Did see Dr. Brasher and eyes are fine. Current shampoo--Nexxus usually. Has been using Nioxin. Was in ER for palpitations. Question if adverse reactions related to antibiotics given. Amoxicillin, Cephalexin, Doxycycline, and one more. Had palpitations, GI upset. Generic of one of the meds caused reaction due to fillers in the past. Noted had a terrible time with [facility] in the hospital. Was bad. Ended up having psychotic episode. Recalls some of it. Was tied down at some point. Thought the place was burning down at one point. PAST MEDICAL HISTORY Diagnosis Date Adverse reaction to HMG-CoA reductase inhibitor 06/07/2022 Historical: see allergies Anal or rectal pain proctalgia Ankle fracture, right 03/06/2016 Anxiety state, unspecified Asthma Benign neoplasm of colon Charcot foot due to diabetes mellitus (HCC) Depressive disorder, not elsewhere classified DIABETES TYPE I W MANIF NOS 09/15/2005 Disorder of bone and cartilage, unspecified Esophageal reflux Essential hypertension, benign Incisional hernia 01/04/2013 Internal hemorrhoids without mention of complication Mitral valve disorders(424.0) Obesity, unspecified Other and unspecified hyperlipidemia Other seborrheic keratosis 10/12/2006 Rosacea 09/06/2007 Unspecified asthma(493.90) 11/2013 PFTs. 09/2013 and 10/2013 Ivette. Vitamin D deficiency 08/21/2010 Current Outpatient Medications Medication Sig zolpidem (AMBIEN) 5 mg tablet Take 0.5-1 tablets by mouth at bedtime as needed for up to 90 days. flash glucose sensor (FREESTYLE JULITA 2 SENSOR) kit Apply new sensor every fourteen (14) days to upper arm. L. acidophilus/Bifid. animalis (DAILY PROBIOTIC ORAL) Take 1 capsule by mouth once daily. (Patient not taking: No sig reported) insulin NPH injection (HumuLIN N,NovoLIN N) Inject 15-20 Units subcutaneously daily with breakfast. Dispense 6 vials (3 months supply) budesonide-formoterol (SYMBICORT) 160-4.5 mcg/actuation inhaler Inhale 2 Puffs as instructed twice daily. ramipril (ALTACE) 10 mg capsule Take 1 capsule by mouth twice daily. insulin aspart U-100 (NOVOLOG U-100 INSULIN ASPART) 100 unit/mL Inject 3-10 Units subcutaneously three times daily before meals. As directed blood sugar diagnostic (BLOOD GLUCOSE TEST) test strip Test blood sugar(s) 8 times daily--Medically Necessary for labile blood sugars (highs and lows). Dx: Other DM Code E10.8, E11.610 Insulin: Yes metoprolol tartrate, short acting, (LOPRESSOR) 50 mg tablet Take 1/2 tablet by mouth twice a day amLODIPine (NORVASC) 10 mg tablet Take 0.5 tablets by mouth once daily. insulin glargine (LANTUS SOLOSTAR, BASAGLAR KWIKPEN) 100 unit/mL (3 mL) Inject 27 Units subcutaneously daily at bedtime. Give Lantus, not Basaglar per patient preference (Patient taking differently: Inject 24 Units subcutaneously daily at bedtime. Give Lantus, not Basaglar per patient preference (Resuming Lantus at bedtime with N in the AM as before since as better controlled with this regimen)) cholecalciferol, Vitamin D3, (VITAMIN D3) 1,250 mcg (50,000 unit) cap capsule Take 1 capsule by mouth one time a week. furosemide (LASIX) 20 mg tablet Take 1 tablet by mouth once daily as needed. Insulin [place], Disposable, (BD ULTRA-FINE FADY PEN NEEDLE) 32 gauge x 5/32 Use one needle for each dose. 1-2 /day. albuterol HFA (PROVENTIL HFA, VENTOLIN HFA) 90 mcg/actuation inhaler Inhale 2 Puffs as instructed four times daily as needed. FOR WHEEZING AND SHORTNESS OF BREATH. COMPOUNDED PRESCRIPTION Bi-PAP nose pads. (G47.33) THAIS treated with BiPAP (Patient not taking: No sig reported) ibuprofen 200 mg tablet Take 1-2 tablets by mouth four times daily as needed (Take with food.). --currently only needing 1 pill twice daily to help with cough No current facility-administered medications for this visit. Review of Systems Objective BP 122/69 Pulse 63 Temp 36.1 C (97 F) Resp 18 SpO2 96% Last 5 Encounter Wt Readings: Date: Wt: 11/12/2022 151 kg (333 lb) 10/05/2022 151 kg (333 lb) 05/18/2022 0 kg () 02/15/2022 153.8 kg (339 lb) 01/11/2022 153.3 kg (338 lb) No waist measurement recorded Estimated body mass index is 49.18 kg/m as calculated from the following: Height as of 10/05/22: 175.3 cm (5' 9 ). Weight as of 11/12/22: 151 kg (333 lb). Last 5 Encounter BP Readings: Date: BP: 01/17/2023 122/69 11/12/2022 134/60 10/05/2022 138/62 09/20/2022 132/68 09/07/2022 144/64 Physical Exam Constitutional: Appearance: Normal appearance. HENT: Head: Normocephalic. Eyes: Conjunctiva/sclera: Conjunctivae normal. Cardiovascular: Rate and Rhythm: Normal rate and regular rhythm. Heart sounds: Normal heart sounds. Pulmonary: Effort: Pulmonary effort is normal. Breath sounds: Normal breath sounds. Skin: General: Skin is warm and dry. Comments: Scalp with some scaly white areas behind ears.Flaky areas as well. Neurological: General: No focal deficit present. Mental Status: She is alert and oriented to person, place, and time. Psychiatric: Mood and Affect: Mood normal. Behavior: Behavior normal. Thought Content: Thought content normal. Judgment: Judgment normal. Standing orders--not drawn before today's appointment. Assessment and Plan Encounter Diagnosis ICD-10-CM 1. Psoriasis of scalp L40.9 mometasone (ELOCON) 0.1 % cream 2. Seborrheic dermatitis L21.9 mometasone (ELOCON) 0.1 % cream 3. Essential hypertension I10 4. Palpitations R00.2 Above issues addressed with patient. Patient involved in shared decision making for management of medical issues. History and medications reviewed. Epic updated as needed Refills and/or prescriptions taken care of and meds adjusted as indicated after reviewed history, exam and labs. Health Maintenance reviewed. Updated record and/or ordered tests as recorded. Encouraged on efforts at healthy diet and regular exercise and adequate sleep. Reviewed developed delirium while hospitalized. Emotional support given. Discussed management of above above medical issues. Further evaluation and treatment as indicated. I spent a total of 48 minutes on the date of the service which included preparing to see the patient, [id number] patient care, completing clinical documentation, obtaining and/or reviewing separately obtained history, performing a medically appropriate examination, counseling and educating the patient/family/caregiver, ordering medications, tests, or procedures, independently interpreting results (not separately reported), and communicating results to the patient/family/caregiver. Octavio Reza MD documented in this encounter [facility] 11-12-2022 Note HNO ID: [id number] Author: Davon Wolfe APRN.FINANCIAL DATA ANALYST Service: ? Author Type: Nurse Practitioner Type: Progress Notes Filed: 11/12/2022 4:10 PM Note Text: SUBJECTIVE Shereen Seals is a 77 year old female here today for an Er follow up. Chief Complaint Patient presents with: ER F/U: [facility] ER 11/04/22 due to palpitations/weakness HPI Shereen Seals is a 77 year old female established patient of Dr. Reza who presents today for ER follow up. She was seen in ER at [facility] on 11/04/2022 for issues with palpitations and weakness. On oxygen from prior COVID-19 infection. Monitors with a pulse ox, noticing heart rate being low and more irregular and erratic with spo2 monitoring. Referred to see cardiology, following up with [facility], saw Oren in the past. She had xray and EKG in ER and blood work. Prior history of SVT. Her medications were reviewed today and her list is now up to date. Medications Current Outpatient Medications Medication Sig zolpidem (AMBIEN) 5 mg tablet Take 0.5-1 tablets by mouth at bedtime as needed for up to 90 days. insulin NPH injection (HumuLIN N,NovoLIN N) Inject 15-20 Units subcutaneously daily with breakfast. Dispense 6 vials (3 months supply) budesonide-formoterol (SYMBICORT) 160-4.5 mcg/actuation inhaler Inhale 2 Puffs as instructed twice daily. ramipril (ALTACE) 10 mg capsule Take 1 capsule by mouth twice daily. insulin aspart U-100 (NOVOLOG U-100 INSULIN ASPART) 100 unit/mL Inject 3-10 Units subcutaneously three times daily before meals. As directed metoprolol tartrate, short acting, (LOPRESSOR) 50 mg tablet Take 1/2 tablet by mouth twice a day amLODIPine (NORVASC) 10 mg tablet Take 0.5 tablets by mouth once daily. insulin glargine (LANTUS SOLOSTAR, BASAGLAR KWIKPEN) 100 unit/mL (3 mL) Inject 27 Units subcutaneously daily at bedtime. Give Lantus, not Basaglar per patient preference (Patient taking differently: Inject 24 Units subcutaneously daily at bedtime. Give Lantus, not Basaglar per patient preference (Resuming Lantus at bedtime with N in the AM as before since as better controlled with this regimen)) cholecalciferol, Vitamin D3, (VITAMIN D3) 1,250 mcg (50,000 unit) cap capsule Take 1 capsule by mouth one time a week. furosemide (LASIX) 20 mg tablet Take 1 tablet by mouth once daily as needed. albuterol HFA (PROVENTIL HFA, VENTOLIN HFA) 90 mcg/actuation inhaler Inhale 2 Puffs as instructed four times daily as needed. FOR WHEEZING AND SHORTNESS OF BREATH. ibuprofen 200 mg tablet Take 1-2 tablets by mouth four times daily as needed (Take with food.). --currently only needing 1 pill twice daily to help with cough flash glucose sensor (FREESTYLE JULITA 2 SENSOR) kit Apply new sensor every fourteen (14) days to upper arm. L. acidophilus/Bifid. animalis (DAILY PROBIOTIC ORAL) Take 1 capsule by mouth once daily. (Patient not taking: No sig reported) blood sugar diagnostic (BLOOD GLUCOSE TEST) test strip Test blood sugar(s) 8 times daily--Medically Necessary for labile blood sugars (highs and lows). Dx: Other DM Code E10.8, E11.610 Insulin: Yes Insulin [place], Disposable, (BD ULTRA-FINE FADY PEN NEEDLE) 32 gauge x 5/32 Use one needle for each dose. 1-2 /day. COMPOUNDED PRESCRIPTION Bi-PAP nose pads. (G47.33) THAIS treated with BiPAP (Patient not taking: No sig reported) No current facility-administered medications for this visit. ALLERGIES Allergen Reactions Escitalopram Intolerance Fatigued after just a half pill dose. Did not want to take anymore. Hctz [Amiloride-Hyd* Other: See Comments Rapid heart beat, nausea, light headed. ( lasted about 12 hours after first dose. Tylenol-Codeine #3 * Vomiting Crestor [Rosuvastat* Intolerance stomach upset even on half of 5 mg pill twice a week Doxycycline GI Upset Lipitor [Atorvastat* Myalgia leg pain Pravastatin GI Upset 10mg dose upset stomach Simvastatin Myalgia Even when cut dose down, still had muscle aches. Had tolerated for years before developed leg pain Did not tolerate even half pill 3 times weekly with last 2 prescriptions Tolerating 1/4 tablet every other day for past few days Naprosyn [Naproxen] GI Upset Nausea Ventolin [Albuterol* GI Upset, Vomiting ACTIVE PROBLEM LIST Chronic Obstructive Asthma With Exacerbation ([facility]) - 11/12/2022 Acute Respiratory Failure With Hypoxia ([facility]) - 11/12/2022 Paroxysmal Svt (Supraventricular Tachycardia) ([facility]) - 11/12/2022 Adverse Reaction to Hmg-Coa Reductase Inhibitor - 06/07/2022 Comment: Historical: see allergies Stasis Edema of Both Lower Extremities - 04/27/2018 Morbid Obesity With Bmi of 45.0-49.9, Adult ([facility]) - 04/18/2017 Asthma - 05/06/2014 Vitamin D Deficiency - 08/21/2010 Charcot Foot Due to Diabetes Mellitus ([facility]) Debility - 09/30/2009 Rosacea - 09/06/2007 Insomnia, Unspecified - 06/01/2007 Type I Diabetes Mellitus With Manifestations ([facility]) - 09/15/2005 Essential Hypertension - (more content not included)... [facility] 10-05-2022 Note HNO ID: [id number] Author: Davon Wolfe APRN.FINANCIAL DATA ANALYST Service: ? Author Type: Nurse Practitioner Type: Progress Notes Filed: 10/05/2022 2:19 PM Note Text: SUBJECTIVE Shereen Seals is a 77 year old female here today for acute concern. Chief Complaint Patient presents with: Same Day Appointment: lump in anus area x 1 week txd with antibiotics HPI Shereen Seals is a 77 year old female established patient of Dr. Reza. She presents today accompanied by her acutely for concerns of a sore to her vaginal area. Saw automatic paint sprayer operator in the past for this, Trudy Verma. Amoxicillin and hot compresses cleared this up in the past. Onset this time was about a week ago. Started with a painful hard lump to the outside skin of the vaginal area. Tried Keflex from automatic paint sprayer operator due to concerns of medicaiton interactions with Bactrim and allergies to doxycyline but she felt the Keflex had a bad reaction. Dr. Reza started her on Augmentin from our office but she felt that caused her some issues too. She felt it was impacting her heart rate. She went to ER, work up was insignificant, felt like they did not need to do anything for her and discharged her home. Over the weekend the area broke open and drained, she continued with warm compresses, was not taking antibiotics over the weekend. It had a bloody drainage come out. Feels like it has extended to her rectum now. She denies any fever, chills, nausea, vomiting. She was not symptomatic when the heart rate was low. She is also diabetic. Her medications were reviewed today and her list is now up to date. Medications Current Outpatient Medications Medication Sig zolpidem (AMBIEN) 5 mg tablet Take 0.5-1 tablets by mouth at bedtime as needed for up to 90 days. amoxicillin-clavulanic acid (AUGMENTIN) 875-125 mg per tablet Take 1 tablet by mouth twice daily for 10 days. flash glucose sensor (FREESTYLE JULITA 2 SENSOR) kit Apply new sensor every fourteen (14) days to upper arm. L. acidophilus/Bifid. animalis (DAILY PROBIOTIC ORAL) Take 1 capsule by mouth once daily. (Patient not taking: No sig reported) insulin NPH injection (HumuLIN N,NovoLIN N) Inject 15-20 Units subcutaneously daily with breakfast. Dispense 6 vials (3 months supply) budesonide-formoterol (SYMBICORT) 160-4.5 mcg/actuation inhaler Inhale 2 Puffs as instructed twice daily. ramipril (ALTACE) 10 mg capsule Take 1 capsule by mouth twice daily. insulin aspart U-100 (NOVOLOG U-100 INSULIN ASPART) 100 unit/mL Inject 3-10 Units subcutaneously three times daily before meals. As directed blood sugar diagnostic (BLOOD GLUCOSE TEST) test strip Test blood sugar(s) 8 times daily--Medically Necessary for labile blood sugars (highs and lows). Dx: Other DM Code E10.8, E11.610 Insulin: Yes metoprolol tartrate, short acting, (LOPRESSOR) 50 mg tablet Take 1/2 tablet by mouth twice a day amLODIPine (NORVASC) 10 mg tablet Take 0.5 tablets by mouth once daily. insulin glargine (LANTUS SOLOSTAR, BASAGLAR KWIKPEN) 100 unit/mL (3 mL) Inject 27 Units subcutaneously daily at bedtime. Give Lantus, not Basaglar per patient preference (Patient taking differently: Inject 24 Units subcutaneously daily at bedtime. Give Lantus, not Basaglar per patient preference (Resuming Lantus at bedtime with N in the AM as before since as better controlled with this regimen)) cholecalciferol, Vitamin D3, (VITAMIN D3) 1,250 mcg (50,000 unit) cap capsule Take 1 capsule by mouth one time a week. furosemide (LASIX) 20 mg tablet Take 1 tablet by mouth once daily as needed. Insulin [place], Disposable, (BD ULTRA-FINE FADY PEN NEEDLE) 32 gauge x Use one needle for each dose. 1-2 /day. albuterol HFA (PROVENTIL HFA, VENTOLIN HFA) 90 mcg/actuation inhaler Inhale 2 Puffs as instructed four times daily as needed. FOR WHEEZING AND SHORTNESS OF BREATH. COMPOUNDED PRESCRIPTION Bi-PAP nose pads. (G47.33) THAIS treated with BiPAP (Patient not taking: No sig reported) ibuprofen 200 mg tablet Take 1-2 tablets by mouth four times daily as needed (Take with food.). --currently only needing 1 pill twice daily to help with cough No current facility-administered medications for this visit. ALLERGIES Allergen Reactions Escitalopram Intolerance Fatigued after just a half pill dose. Did not want to take anymore. Hctz [Amiloride-Hyd* Other: See Comments Rapid heart beat, nausea, light headed. ( lasted about 12 hours after first dose. Tylenol-Codeine #3 * Vomiting Crestor [Rosuvastat* Intolerance stomach upset even on half of 5 mg pill twice a week Doxycycline GI Upset Lipitor [Atorvastat* Myalgia leg pain Pravastatin GI Upset 10mg dose upset stomach Simvastatin Myalgia Even when cut dose down, still had muscle aches. Had tolerated for years before developed leg pain Did not tolerate even half pill 3 times weekly with last 2 prescriptions Tolerating 1/4 tablet every other day for past few days Naprosyn [Naproxen] GI (more content not included)... [facility] 10-05-2022 History of Presen t illness Narrative SUBJECTIVE Shereen Seals is a 77 year old female here today for acute concern. Chief Complaint Patient presents with: Same Day Appointment: lump in anus area x 1 week txd with antibiotics HPI Shereen Seals is a 77 year old female established patient of Dr. Reza. She presents today accompanied by her acutely for concerns of a sore to her vaginal area. Saw automatic paint sprayer operator in the past for this, Trudy Verma. Amoxicillin and hot compresses cleared this up in the past. Onset this time was about a week ago. Started with a painful hard lump to the outside skin of the vaginal area. Tried Keflex from automatic paint sprayer operator due to concerns of medicaiton interactions with Bactrim and allergies to doxycyline but she felt the Keflex had a bad reaction. Dr. Reza started her on Augmentin from our office but she felt that caused her some issues too. She felt it was impacting her heart rate. She went to ER, work up was insignificant, felt like they did not need to do anything for her and discharged her home. Over the weekend the area broke open and drained, she continued with warm compresses, was not taking antibiotics over the weekend. It had a bloody drainage come out. Feels like it has extended to her rectum now. She denies any fever, chills, nausea, vomiting. She was not symptomatic when the heart rate was low. She is also diabetic. Her medications were reviewed today and her list is now up to date. Medications Current Outpatient Medications Medication Sig zolpidem (AMBIEN) 5 mg tablet Take 0.5-1 tablets by mouth at bedtime as needed for up to 90 days. amoxicillin-clavulanic acid (AUGMENTIN) 875-125 mg per tablet Take 1 tablet by mouth twice daily for 10 days. flash glucose sensor (FREESTYLE JULITA 2 SENSOR) kit Apply new sensor every fourteen (14) days to upper arm. L. acidophilus/Bifid. animalis (DAILY PROBIOTIC ORAL) Take 1 capsule by mouth once daily. (Patient not taking: No sig reported) insulin NPH injection (HumuLIN N,NovoLIN N) Inject 15-20 Units subcutaneously daily with breakfast. Dispense 6 vials (3 months supply) budesonide-formoterol (SYMBICORT) 160-4.5 mcg/actuation inhaler Inhale 2 Puffs as instructed twice daily. ramipril (ALTACE) 10 mg capsule Take 1 capsule by mouth twice daily. insulin aspart U-100 (NOVOLOG U-100 INSULIN ASPART) 100 unit/mL Inject 3-10 Units subcutaneously three times daily before meals. As directed blood sugar diagnostic (BLOOD GLUCOSE TEST) test strip Test blood sugar(s) 8 times daily--Medically Necessary for labile blood sugars (highs and lows). Dx: Other DM Code E10.8, E11.610 Insulin: Yes metoprolol tartrate, short acting, (LOPRESSOR) 50 mg tablet Take 1/2 tablet by mouth twice a day amLODIPine (NORVASC) 10 mg tablet Take 0.5 tablets by mouth once daily. insulin glargine (LANTUS SOLOSTAR, BASAGLAR KWIKPEN) 100 unit/mL (3 mL) Inject 27 Units subcutaneously daily at bedtime. Give Lantus, not Basaglar per patient preference (Patient taking differently: Inject 24 Units subcutaneously daily at bedtime. Give Lantus, not Basaglar per patient preference (Resuming Lantus at bedtime with N in the AM as before since as better controlled with this regimen)) cholecalciferol, Vitamin D3, (VITAMIN D3) 1,250 mcg (50,000 unit) cap capsule Take 1 capsule by mouth one time a week. furosemide (LASIX) 20 mg tablet Take 1 tablet by mouth once daily as needed. Insulin [place], Disposable, (BD ULTRA-FINE FADY PEN NEEDLE) 32 gauge x 5/32 Use one needle for each dose. 1-2 /day. albuterol HFA (PROVENTIL HFA, VENTOLIN HFA) 90 mcg/actuation inhaler Inhale 2 Puffs as instructed four times daily as needed. FOR WHEEZING AND SHORTNESS OF BREATH. COMPOUNDED PRESCRIPTION Bi-PAP nose pads. (G47.33) THAIS treated with BiPAP (Patient not taking: No sig reported) ibuprofen 200 mg tablet Take 1-2 tablets by mouth four times daily as needed (Take with food.). --currently only needing 1 pill twice daily to help with cough No current facility-administered medications for this visit. ALLERGIES Allergen Reactions Escitalopram Intolerance Fatigued after just a half pill dose. Did not want to take anymore. Hctz [Amiloride-Hyd* Other: See Comments Rapid heart beat, nausea, light headed. ( lasted about 12 hours after first dose. Tylenol-Codeine #3 * Vomiting Crestor [Rosuvastat* Intolerance stomach upset even on half of 5 mg pill twice a week Doxycycline GI Upset Lipitor [Atorvastat* Myalgia leg pain Pravastatin GI Upset 10mg dose upset stomach Simvastatin Myalgia Even when cut dose down, still had muscle aches. Had tolerated for years before developed leg pain Did not tolerate even half pill 3 times weekly with last 2 prescriptions Tolerating 1/4 tablet every other day for past few days Naprosyn [Naproxen] GI Upset Nausea Ventolin [Albuterol* GI Upset, Vomiting ACTIVE PROBLEM LIST Adverse Reaction to Hmg-Coa Reductase Inhibitor - 06/07/2022 Comment: Historical: see allergies Stasis Edema of Both Lower Extremities - 04/27/2018 Morbid Obesity With Bmi of 45.0-49.9, Adult ([facility]) - 04/18/2017 Asthma - 05/06/2014 Vitamin D Deficiency - 08/21/2010 Charcot Foot Due to Diabetes Mellitus ([facility]) Debility - 09/30/2009 Rosacea - 09/06/2007 Insomnia, Unspecified - 06/01/2007 Type I Diabetes Mellitus With Manifestations ([facility]) - 09/15/2005 Essential Hypertension - 09/15/2005 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 Had around 3yrs of tx. Mitral Valve 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) Anxiety State Depressive Disorder, Not Elsewhere Classified Esophageal Reflux Social History Tobacco Use Smoking status: Former Packs/day: 0.50 Years: 20.00 Pack years: 10.00 Types: Cigarettes Quit date: 10/21/1998 Years since quittin.9 Smokeless tobacco: Never Vaping Use Vaping Use: Never used Substance Use Topics Alcohol use: Yes Comment: Rarely Drug use: No Review of Systems Constitutional: Negative. Respiratory: Negative. Cardiovascular: Negative. Genitourinary: Positive for vaginal pain (external skin). Negative for pelvic pain, vaginal bleeding and vaginal discharge. OBJECTIVE BP 138/62 Pulse 71 Temp 97.4 Resp 16 Ht 5' 9 (1.75m) Wt 333 lb (151.0kg) SpO2 97% BMI 49.15 kg/(m^2). Physical Exam Vitals and nursing note reviewed. Exam conducted with a tool room attendant present ( present in the room, ok to stay per patient). Constitutional: General: She is awake. She is not in acute distress. Appearance: Normal appearance. She is well-developed and well-groomed. She is morbidly obese. She is not ill-appearing, toxic-appearing or diaphoretic. HENT: Head: Normocephalic. Right Ear: External ear normal. Left Ear: External ear normal. Nose: Nose normal. Eyes: General: Vision grossly intact. Conjunctiva/sclera: Conjunctivae normal. Pupils: Pupils are equal, round, and reactive to light. Neck: Vascular: No JVD. Trachea: Trachea normal. Cardiovascular: Rate and Rhythm: Normal rate and regular rhythm. Pulses: Normal pulses. Heart sounds: Normal heart sounds. No murmur heard. Pulmonary: Effort: Pulmonary effort is normal. No accessory muscle usage, prolonged expiration or respiratory distress. Breath sounds: Normal breath sounds. Genitourinary: Exam position: Knee-chest position. Pubic Area: No rash or pubic lice. Labia: Right: Tenderness present. No rash, lesion or injury. Left: No rash, tenderness, lesion or injury. Comments: On exam the right side of the labia majora is inflamed appearing, the tissue is soft, tender on palpation, slight increased warmth palpable through gloves, small amount clear drainage, no visible open wound or sore, one slight area just below left side that is about the size of a pencil easer that has firmness. Some what difficult exam due to patient body habitus and limited positioning available with room/exam table set up. Musculoskeletal: Cervical back: Neck supple. Lymphadenopathy: Lower Body: No right inguinal adenopathy. No left inguinal adenopathy. Skin: General: Skin is warm and dry. Capillary Refill: Capillary refill takes less than 2 seconds. Neurological: General: No focal deficit present. Mental Status: She is alert and oriented to person, place, and time. Mental status is at baseline. Psychiatric: Attention and Perception: Attention and perception normal. Mood and Affect: Mood and affect normal. Speech: Speech normal. Behavior: Behavior normal. Behavior is cooperative. Thought Content: Thought content normal. Cognition and Memory: Cognition and memory normal. Judgment: Judgment normal. ASSESSMENT/PLAN: 1. Labial abscess - ICD9: 616.4, ICD10: N76.4 (primary diagnosis) We discussed continuing with keeping the area clean and dry as able, warm moist compresses through out the day. Lengthy discussion on antibiotics and at this point it seems the bradycardia might have been more equipment with an improper reading. Previously tolerated amoxicillin/Augmentin without problems so we agreed to have her try and finish that course. If issues or not improving then try the Bactrim as the risk of interaction with her JOEY-I is low and most recent potassium level was with in normal limits. Overall it seems the area is improving since it drained and no evidence of any areas needing incision and drainage along with really no significant drainage to culture. 2. Bradycardia - ICD9: 427.89, ICD10: R00.1 We discussed that if noticing bradycardia on pulse ox she should be sure to verify placement, make sure fingers are not cold and also sit and monitor the reading for about a minute to see the average. Also monitor for any signs or symptoms and if heart rate 45 or greater and she is not symptomatic then she can continue to monitor. If questions call office, if symptomatic or heart rate 40 or less then recommend ER eval. Portions of this note have been entered by ancillary staff. I have reviewed and when necessary edited, so that they are an adequate record of my encounter with this patient Please note that parts of this document were created using voice recognition software and therefore may contain grammatical errors. Patient verbalizes understanding of instructions from today's visit and in agreement with treatment plan. Questions answered. Agrees to call the office if questions, concerns of issues with acute symptoms not improving or if they worsen. I spent a total of 25 minutes on the date of the service which included preparing to see the patient, [id number] patient care, completing clinical documentation, obtaining and/or reviewing separately obtained history, performing a medically appropriate examination, counseling and educating the patient/family/caregiver, ordering medications, tests, or procedures, and care coordination (not separately reported). Return if symptoms worsen or fail to improve, for Keep next scheduled appointment.. RACHEL Romero documented in this encounter [facility] 10-05-2022 Miscellaneous Notes Noted. We can certainly take a look and decide on what is the best next steps for her. Patient phoned concerned the lump on labia spread to anus. Was seen in [facility] ER on 10-01 per pcp and CONVEYOR ATTENDANT recommendation for lump on labia. Reports ER doctor was not concerned, told her to keep taking AB, keep the area clean, and use warm compresses. The lump bursted on it's own and bloody liquid came out, after doing warm compresses. Reports she has been obsessively keeping the area clean. Patient stopped taking the AB after the lump bursted for fear she was taking too many AB's. This morning patient noted the lump spread to her anus. Patient is very concerned. Scheduled same day appt with Dairy Nutritionist. documented in this encounter [facility] 10-01-2022 Miscellaneous Notes Phoned patient and advised to ER for larger lump in labia area and low POX and heart rate, per Dr. Reza and Molly Verma recommendation in staff message. Patient agreeable. From Closed encounter: Patient calling with an update for Dr. Reza to situation documented below. Pt states she began the Augmentin that Dr. Reza ordered for her. Took first dose at 5AM this morning. Pt tries to sleep upright. States at about 7:30AM she put home SpO2 monitor on her finger and noted her heart rate to be at 45. SpO2 was in 90's. Did not feel any sx's at that time but moments after said she felt a little groggy for a short time. She repositioned herself and her heart rate increased back to more normal range for her. She is concerned that she is reacting to the Augmentin in some way due to her pulse-ox dropping and slight SOB. No other sx's. Currently: pulse 76 and SpO2 97%. No sx's at this time. Pt states she notices when she sits slouched in her chair, that her SpO2 and pulse decrease, but after repositioning and sitting up straight and deep breathing that her SpO2 and pulse are normal. Patient states the lump on her labia is worse this morning. Intially on 09/27 the lump was a single raised area about the size of a dime. Now reports the area has spread and is bigger into 2-3 areas next to one another and is tender to touch. She reports this morning the area was puffed up more than it's been but after applying hot compress it did decrease in puffiness by half. Please advise patient. Thank you. I would suspect desaturation and lower heart rate while sleeping and/or sitting in chair not upright rather than the Augmentin causing the lower pulse ox and HR. Regardless, since the lump is larger, she needs to return to her CONVEYOR ATTENDANT to address the lump getting largerSounds like developing worsening cellulitis and probably abscess--might need incision and drainage if there is an abscess. If she is failing outpatient treatment with oral meds, might need IV antibiotics. Forwarding to Trudy Verma who had been following with her. documented in this encounter [facility] 09-30-2022 Miscellaneous Notes Spoke with patient. Given message from provider's office. Patient verbalizes understanding. Rochelle Hoyt RN Looks like tolerated Augmentin and Amoxicillin before. Do not see records for MRSA or MSSA infections before. Can try this before considering other antibiotic, including Bactrim. Noted that had Bactrim before without problems and has been on ramipril as well, but prefer to avoid potential interaction if possible. The following approved medication requests have been transmitted electronically. Requested Prescriptions Signed Prescriptions Disp Refills amoxicillin-clavulanic acid (AUGMENTIN) 875-125 mg per tablet 20 tablet 0 Sig: Take 1 tablet by mouth twice daily for 10 days. Authorizing Provider: OCTAVIO REZA MD Patient calling Trudy Verma BUSINESS DATA ANALYST had her start Cephalexin 500 mg one capsule 4 times daily on 09/27 for her valvar issue and patient said 3 hours later she was noticing her heart was lower and she was more short of breath, her SPO2 was going down. She stopped it after 3 doses. She spoke to CONVEYOR ATTENDANT and restarted medication yesterday and had same reaction 3 hours later. She was asking CONVEYOR ATTENDANT to give her Bactrim rx, Trudy said no that is not what I want you to take. She was told to notify her PCP and see what antibiotic PCP wants to put her on. Patient uses [facility] for her pharmacy. Please advise documented in this encounter [facility] 09-27-2022 Miscellaneous Notes Patient notified. Michelle Wu RN The following approved medication requests have been transmitted electronically. Requested Prescriptions Signed Prescriptions Disp Refills cephALEXin (KEFLEX) 500 mg capsule 28 capsule 0 Sig: Take 1 capsule by mouth four times daily for 7 days. Authorizing Provider: TRUDY VERMA Pharmacy Information Pharmacy Address Telephone [facility] [address] [place], [place] [id number] Cephalexin prescribed since Bactrim can raise her potassium level. She should continue the warm compresses. If lump worsens, she will need to be evaluated in the office. Trudy Verma APRN.CNP Patient called with c/o lump on labia. Asking if [facility] would send in RX for Bactrim. Last seen in 2020 for the same issue. It's the size of a dime. Discomfort when she pushes on it. Has been using a warm compress and applying Aquaphor and A&D ointment. Patient just got out of the hospital and having breathing problems. Asking if AG could send in the RX for Bactrim which helped her last time without being seen. Uses [facility] in [place]. Tierney Guajardo RN documented in this encounter [facility] 09-21-2022 Miscellaneous Notes Was addressed in OV. Madeline Quintana LPN Seen in office today with Octavio Reza MD See encounter for OV Patient called in, states that she spoke with a nurse about her Insulin however she thinks she may have told her wrong. She take Insulin Lispro 3-10 units before meals as directed. For the most part she takes 3 units. She tries to stay on a low carb diet and does not usually need more than the 3 units. Spoke with patient and she does not follow a sliding scale she states that if blood sugar is 230 or greater than she takes a little more Novalog. Did confirm that she takes Humulin N 15 units in AM. Novalog 4-5 units at meals and Basaglar 24 units at bedtime. Today's blood sugars have been the best since last discharge from hospital. 5am 103 6am 105 and 9am 126. on 09/15 blood sugars ranged from 168-260 on 09/16 they ranged from 154-263. She notes that anytime she makes a big correction or follows a written sliding scale has frequent low readings and she counters it was peanut butter and crackers. Verify with patient what her base rate and SSI that she is following now. Liliana with [facility] calling to see if there is a base rate or base rate sliding scale for the Lispro insulin and Aspart insulin . Please advise. Cayla Lynne LPN documented in this encounter [facility] 09-20-2022 Note HNO ID: [id number] Author: Octavio Reza MD Service: ? Author Type: Physician Type: Progress Notes Filed: 09/20/2022 11:26 PM Note Text: This note was created using [employer]. Subjective Shereen Seals is a 77 year old female. SUBJECTIVE: Shereen Seals is a 77 year old year old lady here today for follow up appointment for review of medical conditions. Log of sugars doing better. Knows lows were from did not eat as well the night prior. Also when had more carbs and did not adjust insulin, was high next AM. Reviewed that prior SSI were too tight. Did not have a regular base and SSI that followed because would adjust dose not able to eat well. With meals 3 units is her base. Sometimes 4 units if eating more carbs or sugars are higher before the meal. Watching carbs better. In prior weeks sometimes took 5 units N--still taking 15 units every AM. Basaglar 24 units in the evening. Noted that the nurse got her to try CGM. Will help her set it up. Left foot pain started after had pain behind knee. Noted vein was popping out, Tried Advil and it helped. Took for a few days. Small lump in popliteal fossa that is tender but no other signs of DVT. Skin noted to be really dry with brown spots on legs. Scaling from dryness. Also noted SK type lesion anterior left thigh. Only needing 1LPM O2 per NC now. Pulse ox still dropping if take off O2. PAST MEDICAL HISTORY Diagnosis Date Anal or rectal pain proctalgia Ankle fracture, right 03/06/2016 Anxiety state, unspecified Asthma Benign neoplasm of colon Charcot foot due to diabetes mellitus (HCC) Depressive disorder, not elsewhere classified DIABETES TYPE I W MANIF NOS 09/15/2005 Disorder of bone and cartilage, unspecified Esophageal reflux Essential hypertension, benign Incisional hernia 01/04/2013 Internal hemorrhoids without mention of complication Mitral valve disorders(424.0) Obesity, unspecified Other and unspecified hyperlipidemia Other seborrheic keratosis 10/12/2006 Rosacea 09/06/2007 Unspecified asthma(493.90) 11/2013 PFTs. 09/2013 and 10/2013 Ivette. Vitamin D deficiency 08/21/2010 Current Outpatient Medications Medication Sig insulin NPH injection (HumuLIN N,NovoLIN N) Inject 15-20 Units subcutaneously daily with breakfast. Dispense 6 vials (3 months supply) budesonide-formoterol (SYMBICORT) 160-4.5 mcg/actuation inhaler Inhale 2 Puffs as instructed twice daily. ramipril (ALTACE) 10 mg capsule Take 1 capsule by mouth twice daily. zolpidem (AMBIEN) 5 mg tablet Take 0.5-1 tablets by mouth at bedtime as needed for up to 90 days. Do not start before June 05, 2022. insulin aspart U-100 (NOVOLOG U-100 INSULIN ASPART) 100 unit/mL Inject 3-10 Units subcutaneously three times daily before meals. As directed blood sugar diagnostic (BLOOD GLUCOSE TEST) test strip Test blood sugar(s) 8 times daily--Medically Necessary for labile blood sugars (highs and lows). Dx: Other DM Code E10.8, E11.610 Insulin: Yes metoprolol tartrate, short acting, (LOPRESSOR) 50 mg tablet Take 1/2 tablet by mouth twice a day amLODIPine (NORVASC) 10 mg tablet Take 0.5 tablets by mouth once daily. insulin glargine (LANTUS SOLOSTAR, BASAGLAR KWIKPEN) 100 unit/mL (3 mL) Inject 27 Units subcutaneously daily at bedtime. Give Lantus, not Basaglar per patient preference (Patient taking differently: Inject 24 Units subcutaneously daily at bedtime. Give Lantus, not Basaglar per patient preference (Resuming Lantus at bedtime with N in the AM as before since as better controlled with this regimen)) cholecalciferol, Vitamin D3, (VITAMIN D3) 1,250 mcg (50,000 unit) cap capsule Take 1 capsule by mouth one time a week. furosemide (LASIX) 20 mg tablet Take 1 tablet by mouth once daily as needed. Insulin [place], Disposable, (BD ULTRA-FINE FADY PEN NEEDLE) 32 gauge x Use one needle for each dose. 1-2 /day. albuterol HFA (PROVENTIL HFA, VENTOLIN HFA) 90 mcg/actuation inhaler Inhale 2 Puffs as instructed four times daily as needed. FOR WHEEZING AND SHORTNESS OF BREATH. ibuprofen 200 mg tablet Take 1-2 tablets by mouth four times daily as needed (Take with food.). --currently only needing 1 pill twice daily to help with cough L. acidophilus/Bifid. animalis (DAILY PROBIOTIC ORAL) Take 1 capsule by mouth once daily. (Patient not taking: No sig reported) COMPOUNDED PRESCRIPTION Bi-PAP nose pads. (G47.33) THAIS treated with BiPAP (Patient not taking: No sig reported) No current facility-administered medications for this visit. Review of Systems Objective BP 132/68 Pulse 75 Temp (!) 35.7 ?C (96.2 ?F) Resp 18 SpO2 97% Last 5 Encounter Wt Readings: Date: Wt: 05/18/2022 0 kg () 02/15/2022 153.8 kg (339 lb) 01/11/2022 153.3 kg (338 lb) 12/23/2021 151 kg (333 lb) 12/17/2021 0 kg () No waist measurement recorded Estimated body mass index is 50.06 kg/m? as calculated from the following: Height as of 09/21/21: 175 (more content not included)... [facility] 09-14-2022 Miscellaneous Notes Patient notified. Destinee Sims LPN ----- Message from Octavio Reza MD sent at 09/14/2022 8:42 AM EST ----- CBC within normal limits documented in this encounter [facility] 09-07-2022 Note HNO ID: [id number] Author: Octavio Reza MD Service: ? Author Type: Physician Type: Progress Notes Filed: 09/20/2022 1:53 PM Note Text: This note was created using [employer]. Subjective Shereen Seals is a 77 year old female. Patient presents with: Established Patient SUBJECTIVE: Shereen Seals is a 77 year old year old lady here today for follow up appointment for review of medical conditions: fatrigue and heart rate in 80s. Had some heart flutter last night like when had prior tachycardia. Not noticed when woke up. Pulse Ox 97 and pulse rate was 84 when felt tired when getting up to go the bathroom Glucose was in 80s--drank some juice. HR and pulse ox no change. BP was up 162/83. Took normal dose metoprolol and ramipril an hour early so would not muss dose while here for appointment. Cutting out sugar but might have increased salt intake. Down to 1LPM. Sugars better on meds back to where she was . Lowest 80s. Nothing in 70s. PAST MEDICAL HISTORY Diagnosis Date Anal or rectal pain proctalgia Ankle fracture, right 03/06/2016 Anxiety state, unspecified Asthma Benign neoplasm of colon Charcot foot due to diabetes mellitus (HCC) Depressive disorder, not elsewhere classified DIABETES TYPE I W MANIF NOS 09/15/2005 Disorder of bone and cartilage, unspecified Esophageal reflux Essential hypertension, benign Incisional hernia 01/04/2013 Internal hemorrhoids without mention of complication Mitral valve disorders(424.0) Obesity, unspecified Other and unspecified hyperlipidemia Other seborrheic keratosis 10/12/2006 Rosacea 09/06/2007 Unspecified asthma(493.90) 11/2013 PFTs. 09/2013 and 10/2013 Ivette. Vitamin D deficiency 08/21/2010 Current Outpatient Medications Medication Sig L. acidophilus/Bifid. animalis (DAILY PROBIOTIC ORAL) Take 1 capsule by mouth once daily. insulin NPH injection (HumuLIN N,NovoLIN N) Inject 15-20 Units subcutaneously daily with breakfast. Dispense 6 vials (3 months supply) budesonide-formoterol (SYMBICORT) 160-4.5 mcg/actuation inhaler Inhale 2 Puffs as instructed twice daily. ramipril (ALTACE) 10 mg capsule Take 1 capsule by mouth twice daily. zolpidem (AMBIEN) 5 mg tablet Take 0.5-1 tablets by mouth at bedtime as needed for up to 90 days. Do not start before June 05, 2022. (Patient not taking: Reported on 08/17/2022) insulin aspart U-100 (NOVOLOG U-100 INSULIN ASPART) 100 unit/mL Inject 3-10 Units subcutaneously three times daily before meals. As directed blood sugar diagnostic (BLOOD GLUCOSE TEST) test strip Test blood sugar(s) 8 times daily--Medically Necessary for labile blood sugars (highs and lows). Dx: Other DM Code E10.8, E11.610 Insulin: Yes metoprolol tartrate, short acting, (LOPRESSOR) 50 mg tablet Take 1/2 tablet by mouth twice a day amLODIPine (NORVASC) 10 mg tablet Take 0.5 tablets by mouth once daily. insulin glargine (LANTUS SOLOSTAR, BASAGLAR KWIKPEN) 100 unit/mL (3 mL) Inject 27 Units subcutaneously daily at bedtime. Give Lantus, not Basaglar per patient preference (Patient taking differently: Inject 24 Units subcutaneously daily at bedtime. Give Lantus, not Basaglar per patient preference (Resuming Lantus at bedtime with N in the AM as before since as better controlled with this regimen)) cholecalciferol, Vitamin D3, (VITAMIN D3) 1,250 mcg (50,000 unit) cap capsule Take 1 capsule by mouth one time a week. furosemide (LASIX) 20 mg tablet Take 1 tablet by mouth once daily as needed. Insulin [place], Disposable, (BD ULTRA-FINE FADY PEN NEEDLE) 32 gauge x Use one needle for each dose. 1-2 /day. albuterol HFA (PROVENTIL HFA, VENTOLIN HFA) 90 mcg/actuation inhaler Inhale 2 Puffs as instructed four times daily as needed. FOR WHEEZING AND SHORTNESS OF BREATH. COMPOUNDED PRESCRIPTION Bi-PAP nose pads. (G47.33) THAIS treated with BiPAP (Patient not taking: Reported on 08/17/2022) ibuprofen 200 mg tablet Take 1-2 tablets by mouth four times daily as needed (Take with food.). --currently only needing 1 pill twice daily to help with cough No current facility-administered medications for this visit. Review of Systems Objective BP 150/75 Pulse 77 Temp 36.6 ?C (97.9 ?F) Resp 18 SpO2 98% Last 5 Encounter Wt Readings: Date: Wt: 05/18/2022 0 kg () 02/15/2022 153.8 kg (339 lb) 01/11/2022 153.3 kg (338 lb) 12/23/2021 151 kg (333 lb) 12/17/2021 0 kg () No waist measurement recorded Estimated body mass index is 50.06 kg/m? as calculated from the following: Height as of 09/21/21: 175.3 cm (5' 9 ). Weight as of 02/15/22: 153.8 kg (339 lb). Last 5 Encounter BP Readings: Date: BP: 09/07/2022 150/75 08/17/2022 120/68 05/18/2022 128/80 02/15/2022 144/60 01/11/2022 152/82 Last 5 Encounter Pulse Readings: Date: Pulse: 08/17/2022 61 05/18/2022 55 02/15/2022 63 01/11/2022 68 12/23/2021 72 Physical Exam Constitutional: Appearance: Normal appearance. HENT: Cristopher (more content not included)... [facility] 09-07-2022 Instructions Octavio Reza MD - 09/07/2022 6:08 PM EST Okay to take BP meds sooner if having higher heart rate or BP with symptoms before dose is due (by 1 to 2 hours). If more than 2 hours before dose is due, may take extra half pill of metoprolol for heart rate or BP being and symptomatic with palpitations but not from a low sugar or dehydration. documented in this encounter [facility] 09-07-2022 History of Presen t illness Narrative This note was created using [employer]. Subjective Shereen Seals is a 77 year old female. Patient presents with: Established Patient SUBJECTIVE: Shereen Seals is a 77 year old year old lady here today for follow up appointment for review of medical conditions: fatrigue and heart rate in 80s. Had some heart flutter last night like when had prior tachycardia. Not noticed when woke up. Pulse Ox 97 and pulse rate was 84 when felt tired when getting up to go the bathroom Glucose was in 80s--drank some juice. HR and pulse ox no change. BP was up 162/83. Took normal dose metoprolol and ramipril an hour early so would not muss dose while here for appointment. Cutting out sugar but might have increased salt intake. Down to 1LPM. Sugars better on meds back to where she was . Lowest 80s. Nothing in 70s. PAST MEDICAL HISTORY Diagnosis Date Anal or rectal pain proctalgia Ankle fracture, right 03/06/2016 Anxiety state, unspecified Asthma Benign neoplasm of colon Charcot foot due to diabetes mellitus (HCC) Depressive disorder, not elsewhere classified DIABETES TYPE I W MANIF NOS 09/15/2005 Disorder of bone and cartilage, unspecified Esophageal reflux Essential hypertension, benign Incisional hernia 01/04/2013 Internal hemorrhoids without mention of complication Mitral valve disorders(424.0) Obesity, unspecified Other and unspecified hyperlipidemia Other seborrheic keratosis 10/12/2006 Rosacea 09/06/2007 Unspecified asthma(493.90) 11/2013 PFTs. 09/2013 and 10/2013 Ivette. Vitamin D deficiency 08/21/2010 Current Outpatient Medications Medication Sig L. acidophilus/Bifid. animalis (DAILY PROBIOTIC ORAL) Take 1 capsule by mouth once daily. insulin NPH injection (HumuLIN N,NovoLIN N) Inject 15-20 Units subcutaneously daily with breakfast. Dispense 6 vials (3 months supply) budesonide-formoterol (SYMBICORT) 160-4.5 mcg/actuation inhaler Inhale 2 Puffs as instructed twice daily. ramipril (ALTACE) 10 mg capsule Take 1 capsule by mouth twice daily. zolpidem (AMBIEN) 5 mg tablet Take 0.5-1 tablets by mouth at bedtime as needed for up to 90 days. Do not start before June 05, 2022. (Patient not taking: Reported on 08/17/2022) insulin aspart U-100 (NOVOLOG U-100 INSULIN ASPART) 100 unit/mL Inject 3-10 Units subcutaneously three times daily before meals. As directed blood sugar diagnostic (BLOOD GLUCOSE TEST) test strip Test blood sugar(s) 8 times daily--Medically Necessary for labile blood sugars (highs and lows). Dx: Other DM Code E10.8, E11.610 Insulin: Yes metoprolol tartrate, short acting, (LOPRESSOR) 50 mg tablet Take 1/2 tablet by mouth twice a day amLODIPine (NORVASC) 10 mg tablet Take 0.5 tablets by mouth once daily. insulin glargine (LANTUS SOLOSTAR, BASAGLAR KWIKPEN) 100 unit/mL (3 mL) Inject 27 Units subcutaneously daily at bedtime. Give Lantus, not Basaglar per patient preference (Patient taking differently: Inject 24 Units subcutaneously daily at bedtime. Give Lantus, not Basaglar per patient preference (Resuming Lantus at bedtime with N in the AM as before since as better controlled with this regimen)) cholecalciferol, Vitamin D3, (VITAMIN D3) 1,250 mcg (50,000 unit) cap capsule Take 1 capsule by mouth one time a week. furosemide (LASIX) 20 mg tablet Take 1 tablet by mouth once daily as needed. Insulin [place], Disposable, (BD ULTRA-FINE FADY PEN NEEDLE) 32 gauge x 5/32 Use one needle for each dose. 1-2 /day. albuterol HFA (PROVENTIL HFA, VENTOLIN HFA) 90 mcg/actuation inhaler Inhale 2 Puffs as instructed four times daily as needed. FOR WHEEZING AND SHORTNESS OF BREATH. COMPOUNDED PRESCRIPTION Bi-PAP nose pads. (G47.33) THAIS treated with BiPAP (Patient not taking: Reported on 08/17/2022) ibuprofen 200 mg tablet Take 1-2 tablets by mouth four times daily as needed (Take with food.). --currently only needing 1 pill twice daily to help with cough No current facility-administered medications for this visit. Review of Systems Objective BP 150/75 Pulse 77 Temp 36.6 C (97.9 F) Resp 18 SpO2 98% Last 5 Encounter Wt Readings: Date: Wt: 05/18/2022 0 kg () 02/15/2022 153.8 kg (339 lb) 01/11/2022 153.3 kg (338 lb) 12/23/2021 151 kg (333 lb) 12/17/2021 0 kg () No waist measurement recorded Estimated body mass index is 50.06 kg/m as calculated from the following: Height as of 09/21/21: 175.3 cm (5' 9 ). Weight as of 02/15/22: 153.8 kg (339 lb). Last 5 Encounter BP Readings: Date: BP: 09/07/2022 150/75 08/17/2022 120/68 05/18/2022 128/80 02/15/2022 144/60 01/11/2022 152/82 Last 5 Encounter Pulse Readings: Date: Pulse: 08/17/2022 61 05/18/2022 55 02/15/2022 63 01/11/2022 68 12/23/2021 72 Physical Exam Constitutional: Appearance: Normal appearance. HENT: Head: Normocephalic. Eyes: Conjunctiva/sclera: Conjunctivae normal. Cardiovascular: Rate and Rhythm: Normal rate and regular rhythm. Heart sounds: Normal heart sounds. Pulmonary: Effort: Pulmonary effort is normal. Breath sounds: Normal breath sounds. Skin: General: Skin is warm and dry. Neurological: General: No focal deficit present. Mental Status: She is alert and oriented to person, place, and time. Psychiatric: Mood and Affect: Mood normal. Behavior: Behavior normal. Thought Content: Thought content normal. Judgment: Judgment normal. Assessment and Plan Encounter Diagnosis ICD-10-CM 1. Essential hypertension I10 Improved on recheck 2. Palpitations R00.2 Associated with BP running higher and HR up to 80s; better with taking meds sooner. 3. 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 Patient involved in shared decision making for management of medical issues. History and medications reviewed. Epic updated as needed Refills and/or prescriptions taken care of and meds adjusted as indicated after reviewed history, exam and labs. Health Maintenance reviewed. Updated record and/or ordered tests as recorded. Encouraged on efforts at healthy diet and regular exercise and adequate sleep. I spent a total of 31 minutes on the date of the service which included [id number] patient care, completing clinical documentation, performing a medically appropriate examination, and counseling and educating the patient/family/caregiver. Octavio Reza MD documented in this encounter [facility] 09-01-2022 Miscellaneous Notes Noted Arleen Toure APRN.CNP Hubert from [facility] calling discharging patient from OT today patient has met all goals. documented in this encounter [facility] 09-01-2022 Miscellaneous Notes Rekha PT with [facility] called and is notified of providers message and instructions. She voices understanding. Parris Eckert RN Ok for [facility] plan, see below Rekha PT with [facility] called in her POC. She reports she did her evaluation and she is asking if the provider will approve 1 visit for 1 week for the evaluation, then 2 visits for 2 weeks, and then 1 visit for 1 week. She reports they will be going over lower extremity strengthening, gait training, and balance training. Please call with with orders, can leave a voice mail on phone as it is a confidential number. documented in this encounter [facility] 08-21-2022 Miscellaneous Notes Noted Hubert- OT- [facility] - reporting POC: saw patient today for OT ceci, and will see patient 1 x week for 3 weeks. documented in this encounter [facility] 08-17-2022 Instructions Octavio Reza MD - 08/17/2022 5:04 PM EST Resume insulin dosing: AM--15 N Mealtimes--Lispro (Humalog) 5 units with meals plus the sliding scale that you are comfortable with. Bedtime-Glargine 24 units If morning sugars stay higher than 180, can add 1 unit to bedtime Glargine up to every 3 to 7 days. If daytime sugars keep climbing, may need to increase N. If sugars go high after eating, may need to increase baseline with meals OR change diet. If high before meals, we can adjust your SSI to match what you need to drive sugars down without dropping too fast for you. Okay to try lowering O2 to 2LPM and see if pulse ox stays up over 94%. May adjust with activity if needed. Night time O2 at 3LPM for now. Can check overnight pulse ox when trying to see if can wean off at night too. documented in this encounter [facility] 08-17-2022 History of Presen t illness Narrative This note was created using [employer]. Subjective Shereen Seals is a 77 year old female. Patient presents with: Hospital F/U: Follow up [facility] discharge SUBJECTIVE: Shereen Seals is a 77 year old year old lady here today for follow up appointment for review of medical conditions. Discharged from [facility] after hospitalization at [facility] twice. Noted sugars have been running high since they changed her insulin at [facility]. Current probiotic causing constipation. Prefers Symbicort since works better than current one. Prefers stronger one taking once daily. Pulse ox staying in mid 90s with activity on 3LPM. PAST MEDICAL HISTORY Diagnosis Date Anal or rectal pain proctalgia Ankle fracture, right 03/06/2016 Anxiety state, unspecified Asthma Benign neoplasm of colon Charcot foot due to diabetes mellitus (HCC) Depressive disorder, not elsewhere classified DIABETES TYPE I W MANIF NOS 09/15/2005 Disorder of bone and cartilage, unspecified Esophageal reflux Essential hypertension, benign Incisional hernia 01/04/2013 Internal hemorrhoids without mention of complication Mitral valve disorders(424.0) Obesity, unspecified Other and unspecified hyperlipidemia Other seborrheic keratosis 10/12/2006 Rosacea 09/06/2007 Unspecified asthma(493.90) 11/2013 PFTs. 09/2013 and 10/2013 Ivette. Vitamin D deficiency 08/21/2010 Current Outpatient Medications Medication Sig L. acidophilus/Bifid. animalis (DAILY PROBIOTIC ORAL) Take 1 capsule by mouth once daily. ramipril (ALTACE) 10 mg capsule Take 1 capsule by mouth twice daily. insulin aspart U-100 (NOVOLOG U-100 INSULIN ASPART) 100 unit/mL Inject 3-10 Units subcutaneously three times daily before meals. As directed blood sugar diagnostic (BLOOD GLUCOSE TEST) test strip Test blood sugar(s) 8 times daily--Medically Necessary for labile blood sugars (highs and lows). Dx: Other DM Code E10.8, E11.610 Insulin: Yes metoprolol tartrate, short acting, (LOPRESSOR) 50 mg tablet Take 1/2 tablet by mouth twice a day amLODIPine (NORVASC) 10 mg tablet Take 0.5 tablets by mouth once daily. insulin glargine (LANTUS SOLOSTAR, BASAGLAR KWIKPEN) 100 unit/mL (3 mL) Inject 27 Units subcutaneously daily at bedtime. Give Lantus, not Basaglar per patient preference (Patient taking differently: Inject 24 Units subcutaneously twice daily. Give Lantus, not Basaglar per patient preference) cholecalciferol, Vitamin D3, (VITAMIN D3) 1,250 mcg (50,000 unit) cap capsule Take 1 capsule by mouth one time a week. furosemide (LASIX) 20 mg tablet Take 1 tablet by mouth once daily as needed. Insulin [place], Disposable, (BD ULTRA-FINE FADY PEN NEEDLE) 32 gauge x 5/32 Use one needle for each dose. 1-2 /day. albuterol HFA (PROVENTIL HFA, VENTOLIN HFA) 90 mcg/actuation inhaler Inhale 2 Puffs as instructed four times daily as needed. FOR WHEEZING AND SHORTNESS OF BREATH. ibuprofen 200 mg tablet Take 1-2 tablets by mouth four times daily as needed (Take with food.). --currently only needing 1 pill twice daily to help with cough budesonide-formoterol (SYMBICORT) 160-4.5 mcg/actuation inhaler Inhale 2 Puffs as instructed twice daily. (Patient not taking: Reported on 08/17/2022) zolpidem (AMBIEN) 5 mg tablet Take 0.5-1 tablets by mouth at bedtime as needed for up to 90 days. Do not start before June 05, 2022. (Patient not taking: Reported on 08/17/2022) insulin NPH injection (HumuLIN N,NovoLIN N) Inject 15-20 Units subcutaneously daily with breakfast. Dispense 6 vials (3 months supply) (Patient not taking: Reported on 08/17/2022) COMPOUNDED PRESCRIPTION Bi-PAP nose pads. (G47.33) THAIS treated with BiPAP (Patient not taking: Reported on 08/17/2022) No current facility-administered medications for this visit. Review of Systems Objective BP 120/68 Pulse 61 Temp 36.8 C (98.2 F) Resp 18 SpO2 98% Physical Exam Constitutional: Appearance: Normal appearance. She is obese. HENT: Head: Normocephalic. Eyes: Conjunctiva/sclera: Conjunctivae normal. Cardiovascular: Rate and Rhythm: Normal rate and regular rhythm. Heart sounds: Normal heart sounds. Pulmonary: Effort: Pulmonary effort is normal. Breath sounds: Normal breath sounds. Skin: General: Skin is warm and dry. Neurological: General: No focal deficit present. Mental Status: She is alert and oriented to person, place, and time. Psychiatric: Attention and Perception: Attention and perception normal. Mood and Affect: Affect normal. Mood is anxious. Speech: Speech normal. Behavior: Behavior normal. Thought Content: Thought content normal. Hemoglobin A1C (%) Date Value 12/24/2021 7.9 09/02/2021 7.8 05/04/2021 7.4 01/06/2021 8.4 08/11/2020 8.3 04/08/2020 7.8 Assessment and Plan Encounter Diagnosis ICD-10-CM 1. Pneumonia due to COVID-19 virus U07.1 J12.82 improved 2. Hypoxemia R09.02 3. 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) E10.8 4. Moderate persistent asthma without complication J45.40 controlled now--resume Symbicort Additional Medical Conditions Last edited 08/17/22 17:03 EST by Octavio Reza MD Above issues addressed with patient an patient. Expect 5 units at meals will keep sugars even. Did not add SSI to baseline with meals Will go back to N in AM as previously controlled her sugars better than current Lantus BID with SSI. Was taking about 1 unit lower in case might drop sugars. Patient involved in shared decision making for management of medical issues. History and medications reviewed. Epic updated as needed Refills and/or prescriptions taken care of and meds adjusted as indicated after reviewed history, exam and labs. Health Maintenance reviewed. Updated record and/or ordered tests as recorded. Encouraged on efforts at healthy diet and regular exercise and adequate sleep. I spent a total of 56 minutes on the date of the service which included [id number] patient care, completing clinical documentation, obtaining and/or reviewing separately obtained history, performing a medically appropriate examination, counseling and educating the patient/family/caregiver, and ordering medications, tests, or procedures. Octavio Reza MD documented in this encounter [facility] 2022 Miscellaneous Notes Noted, agree Charisse, a nurse with [facility] calling to update Dr. Reza that pt's called and notified [facility] that he was to give pt 2 units of insulin according to sliding scale today, however he accidentally gave pt 6 units. Charisse states she instructed to give pt 2-3 crackers with peanut butter and a small glass of orange juice and check pt's blood sugar in approximately 30 minutes. Pt is also getting ready to eat lunch. was advised to call [facility] for any further concerns. No call back needed, if PCP agreeable with instructions given to pt's . Thank you. documented in this encounter [facility] 07-29-2022 Miscellaneous Notes noted Bonnie OT from [facility] calls and states that patient requested only a one time visit. They worked on home safety and equipment recommendations. Patient is overwhelmed currently and told Bonnie that if patient thinks she needs Bonnie again in a couple of weeks she will give her a call. Darlene Mena RN documented in this encounter [facility] 07-29-2022 Miscellaneous Notes This Sw sent message back to TAMARA 07/26/22 note, in regards to SW order. [facility] has their own SW that makes home visits. This Sw believes that [facility] was looking for order for their own Sw to go and see patient. This SW does not provide home visits. documented in this encounter [facility] 07-28-2022 Miscellaneous Notes Addended by: DAVON WOLFE on: 07/28/2022 10:31 AM Modules accepted: Orders If patient agreeable can wait and discuss endocrine versus PharmD referral at her follow up next week. Okay for a referral for SW per request in prior encounter, I will put in the order. From prior message: Marilyn YING calling from [facility] to report plan of care for patient and Assisted will visit patient 3 times a week for first week, 2 times a week for 2 weeks and 1 time a week for 3 weeks. custodial will work with patient on diabetes education and food education. Marilyn states that patient only takes medications when she wants to take medications. Patients blood sugars was in 400's on Tuesday, Tuesday 300's, and this morning 250. Patient is currently taking insulins they way she is supposed to to be taking them. Marilyn has been calling before each meal. [facility] faxed over updated medication list as to what patient has been taking. Marilyn also asking for a SW order. There is some dynamics in patient's home. Patient and have been screaming at each other. Please review and Advise, Darlene Mena RN Renu aware of below information. Spoke with patient and made her aware too. Follow up scheduled for 08/03/[address] Reza. 1) Patient may use SSI. Does she have one she uses that wants to continue? 2) Okay to d/c seroquel 3) Would offer to have patient work with PharmD through [facility] instead of wireless communications engineer. How are her sugars running? 3) Can reschedule follow up Renu calling back to check status on message below. Cayla Lynne LPN Renu, a [facility] nurse calling Dr. Reza with a couple updates/questions regarding patient: Upon recent hospital discharge for covid pneumonia, pt was instructed to self administer Novolog 6 units with each meal. Pt states prior to hospitalization, she was self-adjusting her Novolog every day. Nurse Renu asking if Dr. Reza would be agreeable to ordering pt a sliding scale for the Novolog insulin for better control? Renu states pt was ordered seroquel in the hospital for mood/behaviors. Since pt has returned to her home environment, pt is not taking the seroquel and nurse reports behaviors have improved. Nurse Renu asking if ok to discontinue the Seroquel per pt request? Renu asking PCP if would be agreeable for pt to see Endocrinology due to poor blood sugar control? Pt told Nurse that she did not see eye-to-eye with past wireless communications engineer. Lastly, during this call, this nurse noted pt was to have appt with PCP today but pt states she was not told about this appt. Please advise Renu at [phone]. Thank you. documented in this encounter [facility] 07-28-2022 Miscellaneous Notes Patient has been identified by name and date of : Patient phones for refill(s): Requested Prescriptions Pending Prescriptions Disp Refills ramipril (ALTACE) 10 mg capsule 180 capsule 3 Sig: Take 1 capsule by mouth twice daily. Date of last office visit in primary care: 05/18/2022, has appt 09/20/2022 Last 2 Encounter Wt Readings: Date: Wt: 05/18/2022 0 kg () 02/15/2022 153.8 kg (339 lb) Previous labs/tests for medication: Blood Pressure: BUN (mg/dL) Date Value 12/24/2021 18 09/11/2021 19 Sodium (mmol/L) Date Value 12/24/2021 138 09/11/2021 140 Last 1 Encounter BP Readings: Date: BP: 05/18/2022 128/80 Please advise. Thank you. Cecy Brush LPN documented in this encounter [facility] 07-26-2022 Miscellaneous Notes Noted, agree David PT calling from [facility] to report plan of care for patient and physical therapy will visit patient 2 times a week for 3 weeks. Physical therapy will work with patient on functional mobility training. No Call back needed if agreeable, Darlene Mena RN documented in this encounter [facility] 07-19-2022 Miscellaneous Notes Below noted Patient was readmitted 07/18/22 Cannot find H&P on Care Everywhere, but looks like had worsened hypoxemia (though blood gas showed O2 sat 94%) and hypokalemia 3.0. Plan for follow up after discharge. Patient reports she was in hospital for flu A (positive 1 week ago today) and hypoxia. Discharged to home 2 days ago on oxygen 2 L. Was getting low readings on 2 L 71-72 %, so turned up to 4 L. POX right now 92% on 4 L O2. Reports oxygen readings: 12-29: 5:30 am: 89% sitting on 2LO2 11:30 am: 88% sitting on 2L 12:30 pm: 84% up to bathroom 2L 3:30 pm: 91% sitting on 2 L 12-30: 4:30 am: 84% sitting on 4L 5:00 am: 90% on 4L 6 am: 91% on 4L 8 am: 88% on 4L Patient sounds good on phone, alert, and states she is feeling better. Is using Incentive spirometer frequently and doing deep breathing exercise. Has been doing in these exercises laying in recliner, and will make effort to sit upright also when doing the exercises. States urine was dark this morning, so making sure she gets plenty of liquids. Urine is log turner now. Does have a moist cough, but improved since hospital stay. No fever. BS this morning 229, which is much improved since hospital (BS ran 400's). Patient reports her fingers have been cold when taking POX reading, and will make sure they are warm before checking POX. Also has pink fingernail icelandic on, and will remove from one finger to compare readings. Will continue to monitor, and call back with any concerns. Knows to return to ER if develops fever, or POX readings fall 85% or below consistantly, and increased SOB. Patient reports the hospital gave her an injection at discharge, told her it may affect her BS's but doctor was not concerned about that, telling patient it would come out of her system in 5 days- asking if pcp knows what this injection would have been? Please advise patient. documented in this encounter [facility] 07-16-2022 Miscellaneous Notes Reason for Call: elevated blood sugar of 304, disoriented, sob, 02 sat is 86-89% while using oxygen Outcome: Pt and her both advised to call 911 now. They both agree. Reason for Disposition Acting confused (e.g., disoriented, slurred speech) Protocols used: Diabetes - High Blood [id number] Pt reports her blood sugar was elevated at 304 at 5:30pm, then it was 304 again at 7pm. Pt c/o increased sob since hospital d/c 3-4 days ago when dx'ed with influenza A. Pt states she does not know the day and thinks the month is June or July. Pt states the president is Davonte and states she is at home. Pt recites her address correctly as per her epic record. Pt gives permission to share her medical information with her . Pt.'s states pt. has oxygen on at 2 & 1/2 liters now and her 02 sat is 86-89% . He feels pt seems disoriented. Pt states she normally knows the day. Pt and her are concerned pt was given a shot while hospitalized that has caused her blood sugar to elevate, but states it was not a steroid, but was something else ( does not know name of this medication). Pt then states her blood sugar is 239 after taking insulin. I advised pt and her to call 911 now. They both understand the recommendation and agree to call 911 now. documented in this encounter [facility] 06-21-2022 Miscellaneous Notes Last office visit: 05/18/22 Next appointment scheduled: 09/20/22 Patient has been identified by name and date of : Yes Requested Prescriptions Pending Prescriptions Disp Refills budesonide-formoterol (SYMBICORT) 160-4.5 mcg/actuation inhaler 1 Each 5 Sig: Inhale 2 Puffs as instructed twice daily. RX INSTRUCTIONS: Patient aware RX will be sent to pharmacy. No need to notify patient. Payton Soliman documented in this encounter [facility] 06-07-2022 History of Presen t illness Narrative Pt chart reviewed as part of population health initiative focused on statin use in patients with diabetes (DM) or cardiovascular disease (CVD). Shereen Seals is identified through data from Medicare (insurer) as a potential candidate for statin therapy with no prescriptions claims processed for a statin medication in this calendar year. Chart Review The following case components were reviewed for current or historic statin use: Confirmed diabetes and or CVD: yes Current/Active med list includes a statin: no IF NO, reason identified (contraindication, intolerance, exclusion, etc.): Documented intolerance to rosuvastatin (GI upset), pravastatin (GI upset), atorvastatin (myalgia), and simvastatin (myalgia) ALLERGIES Allergen Reactions Escitalopram Intolerance Fatigued after just a half pill dose. Did not want to take anymore. Hctz [Amiloride-Hyd* Other: See Comments Rapid heart beat, nausea, light headed. ( lasted about 12 hours after first dose. Tylenol-Codeine #3 * Vomiting Crestor [Rosuvastat* Intolerance stomach upset even on half of 5 mg pill twice a week Lipitor [Atorvastat* Myalgia leg pain Pravastatin GI Upset 10mg dose upset stomach Simvastatin Myalgia Even when cut dose down, still had muscle aches. Had tolerated for years before developed leg pain Did not tolerate even half pill 3 times weekly with last 2 prescriptions Tolerating 1/4 tablet every other day for past few days Naprosyn [Naproxen] GI Upset Nausea Ventolin [Albuterol* GI Upset, Vomiting PAST MEDICAL HISTORY Diagnosis Date Anal or rectal pain proctalgia Ankle fracture, right 03/06/2016 Anxiety state, unspecified Asthma Benign neoplasm of colon Charcot foot due to diabetes mellitus (HCC) Depressive disorder, not elsewhere classified DIABETES TYPE I W MANIF NOS 09/15/2005 Disorder of bone and cartilage, unspecified Esophageal reflux Essential hypertension, benign Incisional hernia 01/04/2013 Internal hemorrhoids without mention of complication Mitral valve disorders(424.0) Obesity, unspecified Other and unspecified hyperlipidemia Other seborrheic keratosis 10/12/2006 Rosacea 09/06/2007 Unspecified asthma(493.90) 11/2013 PFTs. 09/2013 and 10/2013 Ivette. Vitamin D deficiency 08/21/2010 Cholesterol, Total (mg/dL) Date Value 12/24/2021 173 05/04/2021 180 HDL Cholesterol (mg/dL) Date Value 12/24/2021 54 05/04/2021 58 LDL Cholesterol (mg/dL) Date Value 12/24/2021 102 05/04/2021 105 Triglyceride (mg/dL) Date Value 12/24/2021 87 05/04/2021 84 Outcome of review: Potential exclusion Vladimir Kitchen Associated attestation - Narendra Nolasco, [facility] - 06/07/2022 3:49 PM EST The patient's case was discussed with the student who saw the patient with me. Li elements of history confirmed during visit. Agree with findings and plan as outlined by the student. Patient with multiple history of statin intolerance. Reasonable to suspect that further statin trials would result in similar intolerance, despite potential benefit. Narendra Nolasco, PharmD, MEd, BCPS, CDCES documented in this encounter [facility] 06-07-2022 Miscellaneous Notes Noted, agree. Come in for visit if mild concerns. ER for any serious concerns advised. Patient calls with concerns that she had choking episode on tuna noodle casserole. Patient had coughing episode and felt like something was stuck in throat causing her to to become anxious. Patient talking on phone with no coughing or SOB noted. Spent time on phone with patient giving much reassurance. Patient feeling much better not noticing the feeling in her throat any further. Per nurse triage protocol recommend Home Care. Patient agreeable and will call back with any further questions/concerns. Pattie Giles RN documented in this encounter [facility] 05-18-2022 Miscellaneous Notes Ordered during appointment Pt has an appointment with provider on 05/18/22. Pt is asking if provider wanted labs ordered. Please call Pt once labs are placed. documented in this encounter [facility] 05-18-2022 History of Presen t illness Narrative This note was created using [employer]. Subjective Shereen Seals is a 76 year old female. Patient presents with: Follow Up SUBJECTIVE: Shereen Seals is a 76 year old year old lady here today for 4 month follow up appointment for review of medical conditions. Reviewed last labs overall were good. Overall doing well. Noted that right arm sometimes shoots throug\h it--happened when was lifting something. [facility]. Has sling. Stopped using and did more activities that irritated her shoulder. (Not needing PT at this time but did well doing PT for other things before) Has wrist BP cuff. Read high to 150 to 160s sometimes. Usually 140 to 150s. Not yet validated. Noted that Norvasc half 10 mg works better than 5 mg dose. Using Lasix more often. Taking half pill daily. Can get palpitations and feeling breathless if takes whole pill. Swelling overall controlled Follows with Dr. Marin (servicing manager) every 2 months. Has HCDPOA and LW. is HCDPOA. PAST MEDICAL HISTORY Diagnosis Date Anal or rectal pain proctalgia Ankle fracture, right 03/06/2016 Anxiety state, unspecified Asthma Benign neoplasm of colon Charcot foot due to diabetes mellitus (HCC) Depressive disorder, not elsewhere classified DIABETES TYPE I W MANIF NOS 09/15/2005 Disorder of bone and cartilage, unspecified Esophageal reflux Essential hypertension, benign Incisional hernia 01/04/2013 Internal hemorrhoids without mention of complication Mitral valve disorders(424.0) Obesity, unspecified Other and unspecified hyperlipidemia Other seborrheic keratosis 10/12/2006 Rosacea 09/06/2007 Unspecified asthma(493.90) 11/2013 PFTs. 09/2013 and 10/2013 Ivette. Vitamin D deficiency 08/21/2010 Current Outpatient Medications Medication Sig zolpidem (AMBIEN) 5 mg tablet Take 0.5-1 tablets by mouth at bedtime as needed for up to 90 days. insulin aspart U-100 (NOVOLOG U-100 INSULIN ASPART) 100 unit/mL Inject 3-10 Units subcutaneously three times daily before meals. As directed blood sugar diagnostic (BLOOD GLUCOSE TEST) test strip Test blood sugar(s) 8 times daily--Medically Necessary for labile blood sugars (highs and lows). Dx: Other DM Code E10.8, E11.610 Insulin: Yes metoprolol tartrate, short acting, (LOPRESSOR) 50 mg tablet Take 1/2 tablet by mouth twice a day amLODIPine (NORVASC) 10 mg tablet Take 0.5 tablets by mouth once daily. insulin glargine (LANTUS SOLOSTAR, BASAGLAR KWIKPEN) 100 unit/mL (3 mL) Inject 27 Units subcutaneously daily at bedtime. Give Lantus, not Basaglar per patient preference cholecalciferol, Vitamin D3, (VITAMIN D3) 1,250 mcg (50,000 unit) cap capsule Take 1 capsule by mouth one time a week. furosemide (LASIX) 20 mg tablet Take 1 tablet by mouth once daily as needed. insulin NPH injection (HumuLIN N,NovoLIN N) Inject 15-20 Units subcutaneously daily with breakfast. Dispense 6 vials (3 months supply) budesonide-formoterol (SYMBICORT) 160-4.5 mcg/actuation inhaler Inhale 2 Puffs as instructed twice daily. ramipril (ALTACE) 10 mg capsule Take 1 capsule by mouth twice daily. Insulin [place], Disposable, (BD ULTRA-FINE FADY PEN NEEDLE) 32 gauge x Use one needle for each dose. 1-2 /day. albuterol HFA (PROVENTIL HFA, VENTOLIN HFA) 90 mcg/actuation inhaler Inhale 2 Puffs as instructed four times daily as needed. FOR WHEEZING AND SHORTNESS OF BREATH. COMPOUNDED PRESCRIPTION Bi-PAP nose pads. (G47.33) THAIS treated with BiPAP ibuprofen 200 mg tablet Take 1-2 tablets by mouth four times daily as needed (Take with food.). --currently only needing 1 pill twice daily to help with cough No current facility-administered medications for this visit. Review of Systems Objective BP 128/80 Pulse (!) 55 SpO2 98% Last 5 Encounter Wt Readings: Date: Wt: 05/18/2022 0 kg () 02/15/2022 153.8 kg (339 lb) 01/11/2022 153.3 kg (338 lb) 12/23/2021 151 kg (333 lb) 12/17/2021 0 kg () No waist measurement recorded Estimated body mass index is 50.06 kg/m as calculated from the following: Height as of 09/21/21: 175.3 cm (5' 9 ). Weight as of 02/15/22: 153.8 kg (339 lb). Last 5 Encounter BP Readings: Date: BP: 05/18/2022 128/80 02/15/2022 144/60 01/11/2022 152/82 12/23/2021 154/82 12/17/2021 146/88 Physical Exam Constitutional: Appearance: Normal appearance. HENT: Head: Normocephalic. Eyes: Conjunctiva/sclera: Conjunctivae normal. Cardiovascular: Rate and Rhythm: Normal rate and regular rhythm. Heart sounds: Normal heart sounds. Pulmonary: Effort: Pulmonary effort is normal. Breath sounds: Normal breath sounds. Musculoskeletal: Right lower leg: Edema present. Left lower leg: Edema present. Skin: General: Skin is warm and dry. Neurological: General: No focal deficit present. Mental Status: She is alert and oriented to person, place, and time. Psychiatric: Mood and Affect: Mood normal. Behavior: Behavior normal. Thought Content: Thought content normal. Judgment: Judgment normal. Hemoglobin A1C (%) Date Value 12/24/2021 7.9 09/02/2021 7.8 05/04/2021 7.4 01/06/2021 8.4 08/11/2020 8.3 04/08/2020 7.8 Assessment and Plan ASSESSMENT/PLAN: 1. 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) - ICD9: 250.91, ICD10: E10.8 (primary diagnosis) Controlled. - Continue current medications - HGB A1C - COMP METABOLIC PANEL 2. Vitamin D deficiency - ICD9: 268.9, ICD10: E55.9 - VITAMIN D 25 HYDROXY 3. Mixed hyperlipidemia - ICD9: 272.2, ICD10: E78.2 - LIPID PANEL BASIC 4. Insomnia, unspecified type - ICD9: 780.52, ICD10: G47.00 Stable with control of insomnia. At this time benefits outweigh risks. Continue to monitor for adverse effects and indications for decreasing dose or tapering off. No signs of diversion or abuse of medication(s); no adverse effects. Continue present management. - ZOLPIDEM 5 MG TABLET 5. Stasis edema of both lower extremities - ICD9: 459.30, ICD10: I87.303 Compression Elevate as able As needed Lasix 6. Morbid obesity with BMI of 45.0-49.9, adult (HCC) - ICD9: 278.01, V85.42, ICD10: E66.01, Z68.42 Limited activity given limitations. Encouraged to stay as active as able and do chair exercises - Behavioral intervention Make better choices with foods, portions, etc. 7. Encounter for long-term current use of medication - ICD9: V58.69, ICD10: Z79.899 - COMP METABOLIC PANEL - CBC 8. Encounter for immunization - ICD9: V03.89, ICD10: Z23 - INFLUENZA SEASONAL QUADRIVALENT HIGH DOSE AGE 65+ Octavio Reza MD documented in this encounter [facility] 04-03-2022 Miscellaneous Notes See previous TE with same request for vials. Awaiting insurance authorization to dispense. Pattie Giles RN Patient call sent from [facility] as a refill, but when speaking with patient she said her late night shots with Humalin are a nightmare and would like to go back on vials. Please address this with patient. Call sent to triage nurse after speaking with patient. documented in this encounter [facility] 04-03-2022 Miscellaneous Notes Pt calling with request for a prescription for Humalog Vials. Patient denies any new or worsening symptoms of which a provider is not aware: Yes. Conference pt to Dr. Reza's office for assistant education director with prescription. documented in this encounter [facility] 03-31-2022 Miscellaneous Notes The following approved medication requests have been transmitted electronically. Requested Prescriptions Signed Prescriptions Disp Refills blood sugar diagnostic (BLOOD GLUCOSE TEST) test strip 200 Strip 11 Sig: Test blood sugar(s) 8 times daily--Medically Necessary for labile blood sugars (highs and lows). Dx: Other DM Code E10.8, E11.610 Insulin: Yes Authorizing Provider: OCTAVIO REZA insulin aspart U-100 (NOVOLOG FLEXPEN U-100 INSULIN) 100 unit/mL (3 mL) 30 mL 3 Sig: INJECT 3 TO 10 UNITS SUBCUTANEOUSLY BEFORE MEALS DAILY or as directed Authorizing Provider: OCTAVIO REZA MD [facility] called in and reports that Pts insurance will not cover the Humalog now they want Novolog. They are asking if the provider will send a new prescription. Patient has been identified by name and date of : Yes Patient phones for refill(s): Requested Prescriptions Pending Prescriptions Disp Refills insulin lispro (HUMALOG U-100 INSULIN) 100 unit/mL injection 30 mL 3 Sig: INJECT 3 TO 10 UNITS SUBCUTANEOUSLY BEFORE MEALS DAILY or as directed blood sugar diagnostic (BLOOD GLUCOSE TEST) test strip 200 Strip 11 Sig: Test blood sugar(s) 8 times daily--Medically Necessary for labile blood sugars (highs and lows). Dx: Other DM Code E10.8, E11.610 Insulin: Yes Date of last office visit in primary care: 02/15/22, NOV: 05/18/22 Last 2 Encounter Wt Readings: Date: Wt: 02/15/2022 153.8 kg (339 lb) 01/11/2022 153.3 kg (338 lb) Previous labs/tests for medication: Diabetes: Hemoglobin A1C (%) Date Value 12/24/2021 7.9 09/02/2021 7.8 05/04/2021 7.4 Please advise. Thank you. Asmita Tapia RN documented in this encounter [facility] 02-15-2022 Instructions Lydia Grande APRN.CNS - 02/15/2022 3:06 PM EDT Decrease caffeine intake. Drink plenty of fluids. Think about the CGM - continuous glucose monitor. documented in this encounter [facility] 02-15-2022 History of Presen t illness Narrative SUBJECTIVE: COVID-19 VACCINE(1) Never done DTAP,TDAP,TD(1 - Tdap) Never done ADVANCE DIRECTIVE DISCUSSION Never done DIABETIC FOOT EXAM due on 10/27/2021 HPI Shereen Seals is a 76 year old female. 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) Anxiety State Depressive Disorder, Not Elsewhere Classified Esophageal Reflux Type I Diabetes Mellitus With Manifestations (Hcc) Essential Hypertension Arthropathy associated with neurological disorder Insomnia, Unspecified Rosacea Debility Charcot Foot Due to Diabetes Mellitus (Hcc) Vitamin D Deficiency Asthma Morbid Obesity With Bmi of 45.0-49.9, Adult (Hcc) Stasis Edema of Both Lower Extremities Shereen Seals is a 76 year old female who presents for ER follow up visit 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) Anxiety State Depressive Disorder, Not Elsewhere Classified Esophageal Reflux Type I Diabetes Mellitus With Manifestations (Hcc) Essential Hypertension Arthropathy associated with neurological disorder Insomnia, Unspecified Rosacea Debility Charcot Foot Due to Diabetes Mellitus (Hcc) Vitamin D Deficiency Asthma Morbid Obesity With Bmi of 45.0-49.9, Adult (Hcc) Stasis Edema of Both Lower Extremities She was seen at [facility] emergency department on February 11, 2022 for complaint of palpitations. She has past medical history of palpitations sinus bradycardia hypertension PACs, PVCs. Known history of diabetes with Charcot foot and hyperlipidemia. She noted palpitations but no chest pain shortness of breath or other cardiac symptoms. 2 caffeinated beverages daily at breakfast. No GI/ symptoms reported. Ectopics heard on exam. PACs noted on monitor and twelve-lead EKG. CBC within normal limits metabolic panel unremarkable. She was advised to follow-up with PCP as needed. Sees [facility] provider, Areli Estevez. HTN: She is currently without headache, chest pain, palpitations, dyspnea, peripheral edema, orthopnea, fatigue and PND. Last 3 Encounter BP Readings: Date: BP: 02/15/2022 144/60 01/11/2022 152/82 12/23/2021 154/82 She noted that she did not feel well on the increased dose of amlodipine at 10 mg, felt dizzy and lightheaded so she resumed 5 mg daily. DIABETES MELLITUS: She notes but overall doing well.Notes testing BS up to 8x/day. She is without report of excessive thirst or increased frequency of urination, chest pain or dyspnea , numbness, tingling or pain in extremities, new or unusual visual symptoms, low sugar/hypoglycemic reactions, weight loss/gain, lightheadedness/dizziness and bowel changes/loose stools. Patient's last HgA1C was Hemoglobin A1C (%) Date Value 12/24/2021 7.9 09/02/2021 7.8 05/04/2021 7.4 ) Review of Systems Respiratory: Negative. Cardiovascular: Positive for palpitations. Negative for chest pain and leg swelling. Objective BP 144/60 Pulse 63 Resp 16 Wt (!) 153.8 kg (339 lb) SpO2 96% BMI 50.06 kg/m Physical Exam Vitals and nursing note reviewed. Constitutional: Appearance: Normal appearance. HENT: Head: Normocephalic and atraumatic. Mouth/Throat: Lips: [place]. Mouth: Mucous membranes are moist. Eyes: Conjunctiva/sclera: Conjunctivae normal. Cardiovascular: Rate and Rhythm: Normal rate and regular rhythm. Heart sounds: Normal heart sounds. Pulmonary: Effort: Pulmonary effort is normal. Breath sounds: Normal breath sounds. Abdominal: General: Bowel sounds are normal. Palpations: Abdomen is soft. Skin: General: Skin is warm and dry. Neurological: General: No focal deficit present. Mental Status: She is alert and oriented to person, place, and time. ALLERGIES Allergen Reactions Escitalopram Intolerance Fatigued after just a half pill dose. Did not want to take anymore. Hctz [Amiloride-Hyd* Other: See Comments Rapid heart beat, nausea, light headed. ( lasted about 12 hours after first dose. Tylenol-Codeine #3 * Vomiting Crestor [Rosuvastat* Intolerance stomach upset even on half of 5 mg pill twice a week Lipitor [Atorvastat* Myalgia leg pain Pravastatin GI Upset 10mg dose upset stomach Simvastatin Myalgia Even when cut dose down, still had muscle aches. Had tolerated for years before developed leg pain Did not tolerate even half pill 3 times weekly with last 2 prescriptions Tolerating 1/4 tablet every other day for past few days Naprosyn [Naproxen] GI Upset Nausea Ventolin [Albuterol* GI Upset, Vomiting metoprolol tartrate, short acting, (LOPRESSOR) 50 mg tablet Take 1/2 tablet by mouth twice a day amLODIPine (NORVASC) 10 mg tablet Take 0.5 tablets by mouth once daily. insulin lispro (HUMALOG U-100 INSULIN) 100 unit/mL injection INJECT 3 TO 10 UNITS SUBCUTANEOUSLY BEFORE MEALS DAILY or as directed insulin glargine (LANTUS SOLOSTAR, BASAGLAR KWIKPEN) 100 unit/mL (3 mL) Inject 27 Units subcutaneously daily at bedtime. Give Lantus, not Basaglar per patient preference cholecalciferol, Vitamin D3, (VITAMIN D3) 1,250 mcg (50,000 unit) cap capsule Take 1 capsule by mouth one time a week. furosemide (LASIX) 20 mg tablet Take 1 tablet by mouth once daily as needed. insulin NPH injection (HumuLIN N,NovoLIN N) Inject 15-20 Units subcutaneously daily with breakfast. Dispense 6 vials (3 months supply) zolpidem (AMBIEN) 5 mg tablet Take 0.5-1 tablets by mouth at bedtime as needed for up to 90 days. budesonide-formoterol (SYMBICORT) 160-4.5 mcg/actuation inhaler Inhale 2 Puffs as instructed twice daily. ramipril (ALTACE) 10 mg capsule Take 1 capsule by mouth twice daily. blood sugar diagnostic (BLOOD GLUCOSE TEST) test strip Test blood sugar(s) 8 times daily--Medically Necessary for labile blood sugars (highs and lows). Dx: Other DM Code E10.8, E11.610 Insulin: Yes Insulin [place], Disposable, (BD ULTRA-FINE FADY PEN NEEDLE) 32 gauge x 32 Use one needle for each dose. 1-2 /day. albuterol HFA (PROVENTIL HFA, VENTOLIN HFA) 90 mcg/actuation inhaler Inhale 2 Puffs as instructed four times daily as needed. FOR WHEEZING AND SHORTNESS OF BREATH. COMPOUNDED PRESCRIPTION Bi-PAP nose pads. (G47.33) THAIS treated with BiPAP ibuprofen 200 mg tablet Take 1-2 tablets by mouth four times daily as needed (Take with food.). --currently only needing 1 pill twice daily to help with cough PAST MEDICAL HISTORY Diagnosis Date Anal or rectal pain proctalgia Ankle fracture, right 03/06/2016 Anxiety state, unspecified Asthma Benign neoplasm of colon Charcot foot due to diabetes mellitus (HCC) Depressive disorder, not elsewhere classified DIABETES TYPE I W MANIF NOS 09/15/2005 Disorder of bone and cartilage, unspecified Esophageal reflux Essential hypertension, benign Incisional hernia 01/04/2013 Internal hemorrhoids without mention of complication Mitral valve disorders(424.0) Obesity, unspecified Other and unspecified hyperlipidemia Other seborrheic keratosis 10/12/2006 Rosacea 09/06/2007 Unspecified asthma(493.90) 11/2013 PFTs. 09/2013 and 10/2013 Ivette. Vitamin D deficiency 08/21/2010 Social History Tobacco Use Smoking status: Former Smoker Packs/day: 0.50 Years: 20.00 Pack years: 10.00 Types: Cigarettes Quit date: 10/21/1998 Years since quittin.3 Smokeless tobacco: Never Used Vaping Use Vaping Use: Never used Substance Use Topics Alcohol use: Yes Comment: Rarely Drug use: No ASSESSMENT/PLAN: 1. Palpitations - ICD9: 785.1, ICD10: R00.2 (primary diagnosis) She is noted no further palpitations. Does not think she missed any metoprolol doses. Endorse decreasing / discontinuing caffeine intake and maintain adequate fluid intake. - METOPROLOL TARTRATE 50 MG TABLET 2. Encounter for immunization - ICD9: V03.89, ICD10: Z23 - PFIZER-BIONTECH COVID-19 VACCINE, AGE 12+ YR (PAIGE TOP) - TDAP VACCINE AGE 7+ IM Advised: Decrease caffeine intake. Drink plenty of fluids. Think about the CGM - continuous glucose monitor. Lydia Grande APRN.MADELIN documented in this encounter [facility] 02-11-2022 Miscellaneous Notes Noted Reasonable for her to have her mulling machine operator decide on plan of care for noted symptoms. Patient calling said she is short of breath, used her inhaler and did not really help at all. Patient said her heart just does not feel right, thought was having palpitations, wants to have EKG done. Her blood pressure this morning was 140/71 and pulse 60, her SPO2 was 92%. She had only taken half of her Amlodipine 10 mg tablet today. Advised patient needs to go to ER for evaluation. Patient said she was going to call [facility] office, Dr Lott before she would go to the ER. documented in this encounter [facility] 01-21-2022 Miscellaneous Notes Order faxed to [facility] scheduling. ok Patient calls and is asking about mammogram order. Please place order and fax to [facility]. Please review and advise, Darlene Mena RN documented in this encounter [facility] 01-11-2022 History of Presen t illness Narrative Images from the original note were not included. This note was created using [employer]. Subjective Shereen Seals is a 76 year old female. Patient presents with: Follow Up SUBJECTIVE: Shereen Seals is a 76 year old year old lady here today for 4 month follow up appointment for review of medical conditions. Stable from heart standpoint Has been to . Discussed prior notes. Pain in rib cage in the back. . Noted left flank area lumps--two small lumps that are superficial. Superficial and mobile. Noted arms feel lumpy bilateral forearms. Noted had lost a lot of weight since 2019. Stopped that Prilosec for about a month. No recurrent indigestion or reflux. Diarrhea resolved after 2 weeks.Not sure cause and effect. BPs still up at night. Wrist cuff. New. Highest was 185/90. After calmed, came down 10 points. Always 152 range or so. Taking water pill daily since more swelling during the summer. Ambien needed half pill nightly most nights. 3 pills a day Vitamin D gummies and once weekly pill. PAST MEDICAL HISTORY Diagnosis Date Anal or rectal pain proctalgia Ankle fracture, right 03/06/2016 Anxiety state, unspecified Asthma Benign neoplasm of colon Charcot foot due to diabetes mellitus (HCC) Depressive disorder, not elsewhere classified DIABETES TYPE I W MANIF NOS 09/15/2005 Disorder of bone and cartilage, unspecified Esophageal reflux Essential hypertension, benign Incisional hernia 01/04/2013 Internal hemorrhoids without mention of complication Mitral valve disorders(424.0) Obesity, unspecified Other and unspecified hyperlipidemia Other seborrheic keratosis 10/12/2006 Rosacea 09/06/2007 Unspecified asthma(493.90) 11/2013 PFTs. 09/2013 and 10/2013 Ivette. Vitamin D deficiency 08/21/2010 Current Outpatient Medications Medication Sig budesonide-formoterol (SYMBICORT) 160-4.5 mcg/actuation inhaler Inhale 2 Puffs as instructed twice daily. metoprolol tartrate, short acting, (LOPRESSOR) 50 mg tablet Take 1/2 tablet by mouth twice a day insulin NPH injection (HumuLIN N,NovoLIN N) Inject 15-20 Units subcutaneously daily with breakfast. fluconazole (DIFLUCAN) 100 mg tablet Take 2 tablets on day 1, then 1 tablet for 3 days. ramipril (ALTACE) 10 mg capsule Take 1 capsule by mouth twice daily. zolpidem (AMBIEN) 5 mg tablet Take 0.5-1 tablets by mouth at bedtime as needed for up to 90 days. blood sugar diagnostic (BLOOD GLUCOSE TEST) test strip Test blood sugar(s) 8 times daily--Medically Necessary for labile blood sugars (highs and lows). Dx: Other DM Code E10.8, E11.610 Insulin: Yes amLODIPine (NORVASC) 5 mg tablet Take 5 mg by mouth once daily. furosemide (LASIX) 20 mg tablet Take 1 tablet by mouth once daily as needed. cholecalciferol, Vitamin D3, (VITAMIN D3) 1,250 mcg (50,000 unit) cap capsule Take 1 capsule by mouth one time a week. insulin lispro (HUMALOG U-100 INSULIN) 100 unit/mL injection INJECT 3 TO 10 UNITS SUBCUTANEOUSLY BEFORE MEALS DAILY or as directed insulin glargine (LANTUS SOLOSTAR, BASAGLAR KWIKPEN) 100 unit/mL (3 mL) Inject 27 Units subcutaneously daily at bedtime. Give Lantus, not Basaglar per patient preference Insulin [place], Disposable, (QFPay-FINE FADY PEN NEEDLE) 32 gauge x Use one needle for each dose. 1-2 /day. albuterol HFA (PROVENTIL HFA, VENTOLIN HFA) 90 mcg/actuation inhaler Inhale 2 Puffs as instructed four times daily as needed. FOR WHEEZING AND SHORTNESS OF BREATH. COMPOUNDED PRESCRIPTION Bi-PAP nose pads. COMPOUNDED PRESCRIPTION Bi-PAP nose pads. (G47.33) THAIS treated with BiPAP ibuprofen 200 mg tablet Take 1-2 tablets by mouth four times daily as needed (Take with food.). --currently only needing 1 pill twice daily to help with cough Omeprazole Magnesium (PRILOSEC OTC) 20 mg tablet Take 1 tablet by mouth twice daily. 1/2 hr before meal. (Patient not taking: Reported on 01/11/2022 ) No current facility-administered medications for this visit. Review of Systems Objective BP 152/82 (BP Position: Sitting) Pulse 68 Wt (!) 153.3 kg (338 lb) SpO2 97% BMI 49.91 kg/m Last 5 Encounter Wt Readings: Date: Wt: 01/11/2022 153.3 kg (338 lb) 12/23/2021 151 kg (333 lb) 12/17/2021 0 kg () 10/23/2021 0 kg () 09/21/2021 156.7 kg (345 lb 6.4 oz) No waist measurement recorded Estimated body mass index is 49.91 kg/m as calculated from the following: Height as of 09/21/21: 175.3 cm (5' 9 ). Weight as of this encounter: 153.3 kg (338 lb). Last 5 Encounter BP Readings: Date: BP: 01/11/2022 152/82 12/23/2021 154/82 12/17/2021 146/88 10/29/2021 142/66 10/23/2021 152/74 Physical Exam Cardiovascular: Comments: Wearing bilateral support socks and also lower leg ankle braces Musculoskeletal: Back: Right lower leg: Edema present. Left lower leg: Edema present. Component Latest Ref Rng & Units 09/02/2021 09/11/2021 12/24/2021 Protein, Total 6.3 - 8.0 g/dL 7.0 Albumin 3.9 - 4.9 g/dL 3.8 (L) Calcium 8.5 - 10.2 mg/dL 10.3 (H) 9.2 Bilirubin, Total 0.2 - 1.3 mg/dL 1.3 Alkaline Phosphatase 34 - 123 U/L 112 AST 13 - 35 U/L 16 ALT 7 - 38 U/L 15 Glucose 74 - 99 mg/dL 88 113 (H) BUN 7 - 21 mg/dL 19 18 Creatinine 0.58 - 0.96 mg/dL 0.79 0.92 Sodium 136 - 144 mmol/L 140 138 Potassium 3.7 - 5.1 mmol/L 4.3 3.9 Chloride 97 - 105 mmol/L 102 102 CO2 22 - 30 mmol/L 25 27 Anion Gap 9 - 18 mmol/L 13 9 eGFR >=60 mL/min/1.73m 65 eGFR- >60 eGFR-All Other Races . >60 WBC 3.70 - 11.00 k/uL 6.76 6.19 RBC 3.90 - 5.20 m/uL 4.89 4.60 Hemoglobin 11.5 - 15.5 g/dL 14.4 13.7 Hematocrit 36.0 - 46.0 % 45.0 40.3 MCV 80.0 - 100.0 fL 92.0 87.6 MCH 26.0 - 34.0 pg 29.4 29.8 MCHC 30.5 - 36.0 g/dL 32.0 34.0 RDW-CV 11.5 - 15.0 % 12.5 12.5 Platelet Count 150 - 400 k/uL 204 229 MPV 9.0 - 12.7 fL 12.1 11.6 Absolute nRBC <0.01 k/uL <0.01 <0.01 Cholesterol, Total <200 mg/dL 173 Triglyceride <150 mg/dL 87 HDL Cholesterol >39 mg/dL 54 Non HDL Cholesterol <130 mg/dL 119 Fasting Time hrs 12 VLDL Cholesterol <30 mg/dL 17 TC:HDL Ratio <5.10 3.20 LDL Cholesterol <100 mg/dL 102 (H) LDL:HDL Ratio <2.54 1.89 Creatinine, Ur Random (UCRR) 20.0 - 300.0 mg/dL 212.6 Albumin, Urine Random mg/L 14.6 Albumin/Creat Ratio <30 mg/g 7 Hemoglobin A1C 4.3 - 5.6 % 7.8 (H) 7.9 (H) Estimated Average Glucose mg/dL 177 180 Vitamin D 25 Hydroxy 31.0 - 80.0 ng/mL 74.4 64.1 Lipase 16 - 61 U/L 8 (L) Amylase 30 - 104 U/L 43 GGT 6 - 46 U/L 14 Assessment and Plan ASSESSMENT/PLAN: 1. 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) - ICD9: 250.91, ICD10: E10.8 (primary diagnosis) Controlled. - Continue current medications - Discussed HgA1C in 7 range is adequate control to prevent risk of lows. 2. Lipomas - ICD9: 214.9, ICD10: D17.9 Discussed benign. If gets large enough to cause pain, can refer for excision. 3. Vitamin D deficiency - ICD9: 268.9, ICD10: E55.9 - CHOLECALCIFEROL (VITAMIN D3) 1,250 MCG (50,000 UNIT) CAPSULE 4. Insomnia, unspecified type - ICD9: 780.52, ICD10: G47.00 Med helps as neded. - ZOLPIDEM 5 MG TABLET Octavio Reza MD documented in this encounter [facility] 12-23-2021 History of Presen t illness Narrative This note was created using [employer]. Subjective Patient presents with: Abdominal Pain PCP MD Shereen Ortega was here per CC. Abdominal pain is located upper abdomen with radiation to both flanks present for 2-3 weeks and is waxing and waning. It started when she ate salsa on a relatively empty stomach which caused burning. Other symptoms were nausea with no vomiting. She's had diarrhea and constipation, and was afraid to take anything for fear of constipation. She's had a cholecystectomy and she takes Prilosec OTC routinely for hiatal hernia. Other symptoms were lumps noted in her flanks. Review of Systems Constitutional: Positive for appetite change. Negative for fever and unexpected weight change. Respiratory: Negative for chest tightness and shortness of breath. Cardiovascular: Negative for chest pain, palpitations and leg swelling. Gastrointestinal: Negative for abdominal distention, blood in stool and vomiting. Genitourinary: Negative for difficulty urinating and dysuria. Skin: Negative for rash. ACTIVE PROBLEM LIST Hyperlipidemia 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) Anxiety State Depressive Disorder, Not Elsewhere Classified Esophageal Reflux Type I Diabetes Mellitus With Manifestations (Hcc) Essential Hypertension Arthropathy associated with neurological disorder Insomnia, Unspecified Rosacea Debility Charcot Foot Due to Diabetes Mellitus (Hcc) Vitamin D Deficiency Asthma Morbid Obesity With Bmi of 45.0-49.9, Adult ([facility]) Stasis Edema of Both Lower Extremities Current Outpatient Medications Medication Sig budesonide-formoterol (SYMBICORT) 160-4.5 mcg/actuation inhaler Inhale 2 Puffs as instructed twice daily. budesonide-formoterol (SYMBICORT) 160-4.5 mcg/actuation inhaler Inhale 2 Puffs as instructed twice daily. metoprolol tartrate, short acting, (LOPRESSOR) 50 mg tablet Take 1/2 tablet by mouth twice a day insulin NPH injection (HumuLIN N,NovoLIN N) Inject 15-20 Units subcutaneously daily with breakfast. fluconazole (DIFLUCAN) 100 mg tablet Take 2 tablets on day 1, then 1 tablet for 3 days. ramipril (ALTACE) 10 mg capsule Take 1 capsule by mouth twice daily. zolpidem (AMBIEN) 5 mg tablet Take 0.5-1 tablets by mouth at bedtime as needed for up to 90 days. blood sugar diagnostic (BLOOD GLUCOSE TEST) test strip Test blood sugar(s) 8 times daily--Medically Necessary for labile blood sugars (highs and lows). Dx: Other DM Code E10.8, E11.610 Insulin: Yes amLODIPine (NORVASC) 5 mg tablet Take 5 mg by mouth once daily. furosemide (LASIX) 20 mg tablet Take 1 tablet by mouth once daily as needed. cholecalciferol, Vitamin D3, (VITAMIN D3) 1,250 mcg (50,000 unit) cap capsule Take 1 capsule by mouth one time a week. insulin lispro (HUMALOG U-100 INSULIN) 100 unit/mL injection INJECT 3 TO 10 UNITS SUBCUTANEOUSLY BEFORE MEALS DAILY or as directed insulin glargine (LANTUS SOLOSTAR, BASAGLAR KWIKPEN) 100 unit/mL (3 mL) Inject 27 Units subcutaneously daily at bedtime. Give Lantus, not Basaglar per patient preference Insulin [place], Disposable, (BD ULTRA-FINE FADY PEN NEEDLE) 32 gauge x 5/32 Use one needle for each dose. 1-2 /day. albuterol HFA (PROVENTIL HFA, VENTOLIN HFA) 90 mcg/actuation inhaler Inhale 2 Puffs as instructed four times daily as needed. FOR WHEEZING AND SHORTNESS OF BREATH. omeprazole (PRILOSEC) 20 mg capsule Take 1 capsule by mouth once daily. COMPOUNDED PRESCRIPTION Bi-PAP nose pads. COMPOUNDED PRESCRIPTION Bi-PAP nose pads. (G47.33) THAIS treated with BiPAP ibuprofen 200 mg tablet Take 1-2 tablets by mouth four times daily as needed (Take with food.). --currently only needing 1 pill twice daily to help with cough nystatin (MYCOSTATIN) 100,000 unit/mL suspension Take 5 mL by mouth four times daily. 1tsp swish in mouth for several minutes, then swallow (or expectorate) 4 times daily until gone. (Patient not taking: Reported on 12/23/2021 ) fluticasone (FLONASE) 50 mcg/actuation nasal spray Use 1 [place] in each nostril once daily. (Patient not taking: Reported on 12/23/2021 ) aspirin, enteric coated (ASPIRIN, ENTERIC COATED) 81 mg EC tablet Take 1 tablet by mouth once daily. (Patient not taking: Reported on 12/17/2021 ) No current facility-administered medications for this visit. Objective BP 154/82 (BP Site: Left Arm, BP Position: Sitting, BP Cuff Size: Large Adult) Pulse 72 Temp 36.2 C (97.1 F) (Temporal Artery) Resp 16 Wt (!) 151 kg (333 lb) BMI 49.18 kg/m Physical Exam Constitutional: General: She is not in acute distress. Appearance: She is not diaphoretic. Eyes: General: No scleral icterus. Conjunctiva/sclera: Conjunctivae normal. Cardiovascular: Rate and Rhythm: Normal rate and regular rhythm. Pulmonary: Effort: No respiratory distress. Breath sounds: No wheezing or rales. Abdominal: Palpations: Abdomen is soft. Tenderness: There is abdominal tenderness in the right upper quadrant, epigastric area and left upper quadrant. There is no guarding or rebound. Hernia: No hernia is present. Musculoskeletal: Right lower leg: No edema. Left lower leg: No edema. Skin: Comments: No masses appreciated on her flanks or lateral chest wall. Neurological: Mental Status: She is alert. Assessment and Plan 1. Pain of upper abdomen - ICD9: 789.09, ICD10: R10.10 (primary diagnosis) Etiology unclear Differential Diagnosis includes PUD, Gastritis, IBS, Constipation and pancreatitis. - LIPASE BLD - AMYLASE BLD - GGT BLD 2. Alternating constipation and diarrhea - ICD9: 787.99, ICD10: R19.8 If labs abnormal, imaging may be recommended. Patient indicated understanding and willingness to follow recommendations. Guillermo Maurer MD documented in this encounter [facility] 12-17-2021 Instructions Kristyn Flores - 12/17/2021 1:22 PM EDT ASSESSMENT/PLAN: 1. Pain of right upper extremity - ICD9: 729.5, ICD10: M79.601 - XR HUMERUS 2V AP/LAT RIGHT - X-ray is negative for fracture. - Wear compression wrap and sling as needed for comfort. May remove at night. - Take Ibuprofen as needed for pain. - Follow up with orthopedics if pain worsens or persists past 3 days. - CONSULT PANEL TO ORTHOPAEDICS RENATA Prado student SPRAINS AND STRAINS BASIC INFORMATION Description: A strain is a stretched or torn muscle. A sprain is a stretched or torn ligament. Sprained joints can function, but only with pain. Frequent Signs and Symptoms: - Pain or tenderness in the area of injury; severity varies with the extent of injury. - Swelling of the affected joint. - Redness or bruising in the area of injury, either immediately or several hours after injury. - Loss of normal mobility in the injured joint. Causes: Strains usually are associated with overuse injuries. Sprains usually occur secondary to trauma (fall, twisting injury or automobile accident). The ankel is injured most often because of its anatomical weakness, its exposed position, and the stress it sustains in athletic and recreational activities. It is difficult to differentiate sprains from strains. Risk Increases With: - Obesity . - Trauma. - Excessive exercise. - Poor conditioning. - Poor fitting shoes and high heeled shoes. - High-risk activities (skateboarding), contact spoints, ice and roller skating. Preventive Measures: - Maintain good level of physical fitness. - Wrap weak joints with support bandanges before strenuous activity. - Stretch muscles before and after exercise. - Strengthen weak muscles with rehabilitative exercises to prevent a recurrence. - Accident-proof your home. Expected Outcome: With appropriate treatment and rest, 6-8 weeks for recovery. May take longer depending on the severity of the injury. Possible Complications: - Permanent weakness if the sprain is severe or if a joint is sprained repeatedly. - Arthritis. TREATMENT General Measures: - Diagnostic tests may include x-rays of the injured area, or CT scan or MRI. -RICE therapy: rest, ice, compression, and elevation - Apply ice to the injured joint during the first [address] ice in a plastic bag and separate it from the skin with a thin towel. Hold it against the joint with your hand or an elastic bandage. Keep the ice pack on the joint up to 2 hours at a time either constantly or intermittently depending on your ability to tolerate the cold. Continue the ice treatment at 2-hour intervals for 24 hours. - After 24 hours, you may continue ice treatment or switch to heat. - To use heat, soak the joint in hot water or apply heat for 15 minutes every 2 hours or whenever possible. Don't apply heat during the first 24 hours. It may increase bleeding and swelling and prolong healing time. - Compression with an elastic (Joey) bandage. - Whenever possible, elevate the joint (especially while sleeping) so fluid can drain and diminish swelling. -Surgery may be necessary to repair badly torn ligaments. - a cast may be necessary for severespains or following surgery. Following cast removal, you will wear support bandages for a while. - Air cast type devices are very effective. - Learn how to use crutches, if needed. Medication: - You may use non-prescription pain relievers, such as ibuprofen. If the sprain is severe, a stronger pain relivere may be prescribed. - Avoid aspirin, as it may increase the tendency to bleed. Activity: - Allow the joint to rest 1 or 2 days. Then begin exercising the joint gently, without putting weight on it. - Physical therapy may be recommended to regain strength and normal use of the joint. NOTIFY OUR OFFICE IF - You or a family member has a sprained joint that won't bear weight or move normally. - Pain becomes intolerable. - Swelling or bruising increases, despite treatment. Copyright 1994 by [employer] documented in this encounter [facility] 12-17-2021 History of Presen t illness Narrative Subjective Shereen Seals is a 76 year old female who presents with right upper arm pain. She states she was lifting a heavy saxena with her right arm and externally rotated the arm when she suddenly developed sharp pain and weakness in the arm. Denies any popping sensation when this occurred. Rates current pain 3/10 while at rest and 8/10 with any movement. Reports pain is localized to the biceps region with generalized tenderness to the right upper arm and shoulder. Denies numbness or tingling. The history is provided by the patient. No funeral car chauffeur was used. Arm Pain The pain is present in the right arm. This is a new problem. The current episode started today. The problem occurs constantly. The problem has been unchanged. The quality of the pain is described as dull. Pertinent negatives include no joint locking, numbness or tingling. She has tried nothing for the symptoms. Review of Systems Cardiovascular: Negative for chest pain. Musculoskeletal: Negative for back pain, joint pain and neck pain. Neurological: Negative for tingling and numbness. BP 146/88 Pulse 71 Temp 36.2 C (97.1 F) Resp 18 SpO2 96% PAST MEDICAL HISTORY Diagnosis Date Anal or rectal pain proctalgia Ankle fracture, right 03/06/2016 Anxiety state, unspecified Asthma Benign neoplasm of colon Charcot foot due to diabetes mellitus (HCC) Depressive disorder, not elsewhere classified DIABETES TYPE I W MANIF NOS 09/15/2005 Disorder of bone and cartilage, unspecified Esophageal reflux Essential hypertension, benign Incisional hernia 01/04/2013 Internal hemorrhoids without mention of complication Mitral valve disorders(424.0) Obesity, unspecified Other and unspecified hyperlipidemia Other seborrheic keratosis 10/12/2006 Rosacea 09/06/2007 Unspecified asthma(493.90) 11/2013 PFTs. 09/2013 and 10/2013 Ivette. Vitamin D deficiency 08/21/2010 PAST SURGICAL HISTORY Procedure Laterality Date AFTER CATARACT LASER SURGERY 2002 CHOLECYSTECTOMY Cholecystectomy COLONOSCOPY 10/29/2021 repeat in 5 years COLONOSCOPY FLX DX W/COLLJ SPEC WHEN PFRMD 10/31/2002 Colonoscopy COLONOSCOPY FLX DX W/COLLJ SPEC WHEN PFRMD 10/13/2010 ESOPHAGOGASTRODUODENOSCOPY TRANSORAL DIAGNOSTIC 01/17/2013 EGD EYE SURGERY HX FIXATION OF ANKLE JOINT Right 02/2016 FRACTURE SURGERY HEART CATHETERIZATION 01/2012 HERNIA REPAIR HX IMPLANT MESH OPN HERNIA RPR/DEBRIDEMENT CLOSURE 04/10/2013 LIG/TRNSXJ FLP TUBE ABDL/VAG APPR UNI/BI PAST SURGICAL HISTORY OF 08/24/1992 endometrial biopsy S IMPLANT INTRAOC LENS-HOYA 90s SKIN BX, 1 LESION 01/15/2008 Right mid check TONSILLECTOMY HX childhood ALLERGIES Escitalopram, Hctz [Amiloride-Hydrochlorothiazide], Tylenol-Codeine #3 [Acetaminophen-Codeine], Crestor [Rosuvastatin], Lipitor [Atorvastatin], Pravastatin, Simvastatin, Naprosyn [Naproxen], and Ventolin [Albuterol Sulfate] MEDICATIONS budesonide-formoterol (SYMBICORT) 160-4.5 mcg/actuation inhaler Inhale 2 Puffs as instructed twice daily. metoprolol tartrate, short acting, (LOPRESSOR) 50 mg tablet Take 1/2 tablet by mouth twice a day insulin NPH injection (HumuLIN N,NovoLIN N) Inject 15-20 Units subcutaneously daily with breakfast. nystatin (MYCOSTATIN) 100,000 unit/mL suspension Take 5 mL by mouth four times daily. 1tsp swish in mouth for several minutes, then swallow (or expectorate) 4 times daily until gone. fluconazole (DIFLUCAN) 100 mg tablet Take 2 tablets on day 1, then 1 tablet for 3 days. ramipril (ALTACE) 10 mg capsule Take 1 capsule by mouth twice daily. fluticasone (FLONASE) 50 mcg/actuation nasal spray Use 1 [place] in each nostril once daily. blood sugar diagnostic (BLOOD GLUCOSE TEST) test strip Test blood sugar(s) 8 times daily--Medically Necessary for labile blood sugars (highs and lows). Dx: Other DM Code E10.8, E11.610 Insulin: Yes amLODIPine (NORVASC) 5 mg tablet Take 5 mg by mouth once daily. furosemide (LASIX) 20 mg tablet Take 1 tablet by mouth once daily as needed. cholecalciferol, Vitamin D3, (VITAMIN D3) 1,250 mcg (50,000 unit) cap capsule Take 1 capsule by mouth one time a week. insulin lispro (HUMALOG U-100 INSULIN) 100 unit/mL injection INJECT 3 TO 10 UNITS SUBCUTANEOUSLY BEFORE MEALS DAILY or as directed insulin glargine (LANTUS SOLOSTAR, BASAGLAR KWIKPEN) 100 unit/mL (3 mL) Inject 27 Units subcutaneously daily at bedtime. Give Lantus, not Basaglar per patient preference Insulin [place], Disposable, (BD ULTRA-FINE FADY PEN NEEDLE) 32 gauge x Use one needle for each dose. 1-2 /day. albuterol HFA (PROVENTIL HFA, VENTOLIN HFA) 90 mcg/actuation inhaler Inhale 2 Puffs as instructed four times daily as needed. FOR WHEEZING AND SHORTNESS OF BREATH. omeprazole (PRILOSEC) 20 mg capsule Take 1 capsule by mouth once daily. COMPOUNDED PRESCRIPTION Bi-PAP nose pads. COMPOUNDED PRESCRIPTION Bi-PAP nose pads. (G47.33) THAIS treated with BiPAP ibuprofen 200 mg tablet Take 1-2 tablets by mouth four times daily as needed (Take with food.). --currently only needing 1 pill twice daily to help with cough zolpidem (AMBIEN) 5 mg tablet Take 0.5-1 tablets by mouth at bedtime as needed for up to 90 days. aspirin, enteric coated (ASPIRIN, ENTERIC COATED) 81 mg EC tablet Take 1 tablet by mouth once daily. FAMILY HISTORY Problem Relation Age of Onset Heart Father Lipids Father Lipids Mother Hypertension Mother Heart Mother Breast Cancer Maternal Grandmother other (MS) Sister No Known Problems Son Social History Tobacco Use Smoking status: Former Smoker Packs/day: 0.50 Years: 20.00 Pack years: 10.00 Types: Cigarettes Quit date: 10/21/1998 Years since quittin.1 Smokeless tobacco: Never Used Vaping Use Vaping Use: Never used Substance Use Topics Alcohol use: Yes Comment: Rarely Drug use: No Objective Physical Exam Vitals and nursing note reviewed. Constitutional: Appearance: Normal appearance. Cardiovascular: Pulses: Radial pulses are 2+ on the right side. Musculoskeletal: Right shoulder: Tenderness (mild) present. No swelling or bony tenderness. Normal pulse. Right upper arm: Tenderness (biceps region) present. No swelling, edema, deformity, lacerations or bony tenderness. Right elbow: No swelling. No tenderness. Right forearm: No swelling, edema or tenderness. Cervical back: No tenderness. Comments: Normal passive range of motion of the right shoulder and elbow Skin: General: Skin is warm. Findings: No bruising or erythema. Neurological: Mental Status: She is alert and oriented to person, place, and time. Motor: No weakness. ASSESSMENT/PLAN: 1. Pain of right upper extremity - ICD9: 729.5, ICD10: M79.601 - XR HUMERUS 2V AP/LAT RIGHT Radiologist IMPRESSION: No acute process. [employer] Clerk: EVIE Transcribe Date/Time: Dec 17 2021 1:44P Dictated by : CECY REYES MD - X-ray is negative for fracture. - Wear compression wrap and sling as needed for comfort. May remove at night. - Take Ibuprofen as needed for pain. - Follow up with orthopedics if pain worsens or persists past 3 days. - CONSULT PANEL TO ORTHOPAEDICS RENATA Prado student TEACHING PROVIDER (Physician/PA/TECHNICAL PROJECT COORDINATOR) NOTE OF PERSONAL INVOLVEMENT IN CARE: I have personally seen and examined the patient and performed the medical decision-making components. I have reviewed the Advanced Practice Registered Nurse (TECHNICAL PROJECT COORDINATOR) Student's documentation and verified the findings in the note as written. Any additions or changes are noted in bold/italics. Signature: Wanda Phillips Date: 12/17/2021 Time: 2:06 PM documented in this encounter [facility] 12-17-2021 Miscellaneous Notes noted, agree should be seen Patient calling with request for an x ray of her arm. She states she strained her upper arm when she lifted a heavy pot of water. She feels pain in the bicep area of her right arm. Advised Urgent Care evaluation. She is agreeable. Rochelle M Lentine, RN documented in this encounter [facility] 12-16-2021 History of Presen t illness Narrative Radiology Service Progress Note PATIENT NAME: Shereen Seals DATE OF SERVICE: December 16, 2021 TIME: 9:40 AM PATIENT IDENTITY VERIFICATION COMPLETED USING TWO (2) IDENTIFIERS: Name and Date of confirmed by patient verbally. FALL SCREENING: Has the patient had 2 falls in the last year or 1 fall with injury or currently using an Ambulatory Assistive Device (Walker, Cane, Wheelchair, Crutches, etc.)? Yes, Patient High Risk for Falls What interventions were put in place to prevent falls during this visit? Offered Assistance with Transfers/Clothing and Instructed Patient to Remain Seated (Not on Exam Table) Until Exam PATIENT GENDER DATA: Female. status: : No status: NO. PATIENT RELEVANT IMPLANT DATA REVIEWED: Not Applicable RADIOLOGY DEPARTMENT: General X-ray: Exam(s) Completed: Chest X-Ray PERIPHERAL IV DATA: Not applicable SIGNED BY: RT Lia(R) December 16, 2021 9:40 AM documented in this encounter [facility] 12-16-2021 Miscellaneous Notes Verified name and date of . Patient phones requesting refills as follows: Pending Prescriptions Disp Refills BUDESONIDE-FORMOTEROL HFA 160 MCG-4.5 MCG/ACTUATION AEROSOL INHALER 1 Each 5 Sig: Inhale 2 Puffs as instructed twice daily. VITALY: No Verified pharmacy to be reordered at. Please review and advise. Eleni Serrano LPN documented in this encounter [facility] 12-04-2021 Miscellaneous Notes Noted, agree should see eye doctor today if possible Patient reports her eyes have been itching for several days, and she has been rubbing them. Today the left eye looks like it's bleeding. Whole white of eye is covered with red. No drainage from eye. Concern b/c she is diabetic and takes BP medication. BS this morning was 142. Will check BP and then call eye doctor, and if needs pcp will call back. documented in this encounter [facility] 11-06-2021 Miscellaneous Notes Spoke to Dr Carmichael and updated patient on results, To repeat colonoscopy in 5 years. Patient called asking for results from colonoscopy. [phone] documented in this encounter [facility] 10-29-2021 Nurse Note Abdomen soft non-distended. Will continue to monitor. [facility] PRE[facility]OP NURSING HAND OFF NOTE SBAR Hand off given to Eris Mena RN. Hand off was communicated verbally and at the patient's bedside and all questions were answered. Amanda Santiago RN documented in this encounter [facility] 10-29-2021 History and physical note Images from the original note were not included. HISTORY AND PHYSICAL Shereen Seals 1945 REFERRING PHYSICIAN: Octavio Reza MD CHIEF COMPLAINT: Consult (colonoscopy screening) HPI: The patient is a 76 year old female referred for endoscopy. Shereen notes no history of colon complaints. The patient notes no history of upper GI complaints. Shereen has undergone prior endoscopy. 2010 The patient is being seen by me today at the request of Dr. Octavio Reza MD for my opinion and advice regarding Colon cancer screening. PAST MEDICAL HISTORY PAST MEDICAL HISTORY Diagnosis Date Anal or rectal pain proctalgia Ankle fracture, right 03/06/2016 Anxiety state, unspecified Benign neoplasm of colon Charcot foot due to diabetes mellitus (HCC) Depressive disorder, not elsewhere classified DIABETES TYPE I W MANIF NOS 09/15/2005 Disorder of bone and cartilage, unspecified Esophageal reflux Essential hypertension, benign Incisional hernia 01/04/2013 Internal hemorrhoids without mention of complication Mitral valve disorders(424.0) Obesity, unspecified Other and unspecified hyperlipidemia Other seborrheic keratosis 10/12/2006 Rosacea 09/06/2007 Unspecified asthma(493.90) 11/2013 PFTs. 09/2013 and 10/2013 Ivette. Vitamin D deficiency 08/21/2010 PAST SURGICAL HISTORY PAST SURGICAL HISTORY Procedure Laterality Date AFTER CATARACT LASER SURGERY 2002 CHOLECYSTECTOMY Cholecystectomy COLONOSCOPY FLX DX W/COLLJ SPEC WHEN PFRMD 10/31/2002 Colonoscopy COLONOSCOPY FLX DX W/COLLJ SPEC WHEN PFRMD 10/13/10 ESOPHAGOGASTRODUODENOSCOPY TRANSORAL DIAGNOSTIC 01/17/2013 EGD FIXATION OF ANKLE JOINT Right 02/2016 HEART CATHETERIZATION 01/26 IMPLANT MESH OPN HERNIA RPR/DEBRIDEMENT CLOSURE 04/10/13 LIG/TRNSXJ FLP TUBE ABDL/VAG APPR UNI/BI PAST SURGICAL HISTORY OF 08/24/1992 endometrial biopsy S IMPLANT INTRAOC LENS-HOYA 90s SKIN BX, 1 LESION 01/15/08 Right mid check TONSILLECTOMY HX childhood CURRENT MEDICATIONS Current Outpatient Medications Medication Sig nystatin (MYCOSTATIN) 100,000 unit/mL suspension Take 5 mL by mouth four times daily. 1tsp swish in mouth for several minutes, then swallow (or expectorate) 4 times daily until gone. fluconazole (DIFLUCAN) 100 mg tablet Take 2 tablets on day 1, then 1 tablet for 3 days. ramipril (ALTACE) 10 mg capsule Take 1 capsule by mouth twice daily. zolpidem (AMBIEN) 5 mg tablet Take 0.5-1 tablets by mouth at bedtime as needed for up to 90 days. fluticasone (FLONASE) 50 mcg/actuation nasal spray Use 1 [place] in each nostril once daily. blood sugar diagnostic (BLOOD GLUCOSE TEST) test strip Test blood sugar(s) 8 times daily--Medically Necessary for labile blood sugars (highs and lows). Dx: Other DM Code E10.8, E11.610 Insulin: Yes amLODIPine (NORVASC) 5 mg tablet Take 5 mg by mouth once daily. metoprolol tartrate, short acting, (LOPRESSOR) 50 mg tablet Take 1/2 tablet by mouth twice a day budesonide-formoterol (SYMBICORT) 160-4.5 mcg/actuation inhaler Inhale 2 Puffs as instructed twice daily. furosemide (LASIX) 20 mg tablet Take 1 tablet by mouth once daily as needed. cholecalciferol, Vitamin D3, (VITAMIN D3) 1,250 mcg (50,000 unit) cap capsule Take 1 capsule by mouth one time a week. insulin lispro (HUMALOG U-100 INSULIN) 100 unit/mL injection INJECT 3 TO 10 UNITS SUBCUTANEOUSLY BEFORE MEALS DAILY or as directed insulin glargine (LANTUS SOLOSTAR, BASAGLAR KWIKPEN) 100 unit/mL (3 mL) Inject 27 Units subcutaneously daily at bedtime. Give Lantus, not Basaglar per patient preference Insulin [place], Disposable, (BD ULTRA-FINE FADY PEN NEEDLE) 32 gauge x Use one needle for each dose. 1-2 /day. insulin NPH injection (HumuLIN N,NovoLIN N) Inject 15-20 Units subcutaneously daily with breakfast. albuterol HFA (PROVENTIL HFA, VENTOLIN HFA) 90 mcg/actuation inhaler Inhale 2 Puffs as instructed four times daily as needed. FOR WHEEZING AND SHORTNESS OF BREATH. omeprazole (PRILOSEC) 20 mg capsule Take 1 capsule by mouth once daily. COMPOUNDED PRESCRIPTION Bi-PAP nose pads. COMPOUNDED PRESCRIPTION Bi-PAP nose pads. (G47.33) THAIS treated with BiPAP aspirin, enteric coated (ASPIRIN, ENTERIC COATED) 81 mg EC tablet Take 1 tablet by mouth once daily. (Patient taking differently: Take 81 mg by mouth once daily. 3 daily ) ibuprofen 200 mg tablet Take 1-2 tablets by mouth four times daily as needed (Take with food.). --currently only needing 1 pill twice daily to help with cough No current facility-administered medications for this visit. ALLERGIES: Escitalopram, Hctz [Amiloride-Hydrochlorothiazide], Tylenol-Codeine #3 [Acetaminophen-Codeine], Crestor [Rosuvastatin], Lipitor [Atorvastatin], Pravastatin, Simvastatin, Naprosyn [Naproxen], and Ventolin [Albuterol Sulfate] PERSONAL HISTORY: SOCIAL HISTORY Social History Tobacco Use Smoking status: Former Smoker Packs/day: 0.50 Years: 20.00 Pack years: 10.00 Types: Cigarettes Quit date: 10/21/1998 Years since quittin.9 Smokeless tobacco: Never Used Vaping Use Vaping Use: Never used Substance Use Topics Alcohol use: Yes Comment: Rarely Drug use: No FAMILY HISTORY: FAMILY HISTORY FAMILY HISTORY Problem Relation Age of Onset Heart Father Lipids Father Lipids Mother Hypertension Mother Heart Mother Breast Cancer Maternal Grandmother other (MS) Sister No Known Problems Son REVIEW OF SYMPTOMS: The review of systems data was entered by the nurse and reviewed by md Nursing Notes: Serina Catherine RN 09/21/2021 3:38 PM Signed REVIEW OF SYSTEMS: General: The patient denies fatigue, denies weight loss, denies weight gain, denies feeling hot, and denies feelings of cold. Eyes: The patient denies glaucoma, denies eye injury/surgery, wears glasses or contacts. Ear/Nose/Throat: The patient denies allergies, denies hayfever, denies ear infections, and denies bloody noses. Cardiovascular: The patient denies chest pain, denies heart disease, NOTES high blood pressure,denies cardiac stent, denies prior heart attack, denies irregular heart beat, denies high cholesterol, denies poor circulation, NOTES heart failure, other cardiac issues, denies claudication, denies cold feet, denies peripheral arterial stent. Respiratory: The patient denies tuberculosis, denies pneumonia, denies frequent cough, denies pulmonary embolism, denies shortness of breath, and denies coughing up blood. Gastrointestinal: The patient denies difficulty swallowing, denies acid reflux, denies ulcers, denies vomiting, denies jaundice/hepatitis, denies gallbladder problems, denies black or tarry stools, denies hemorrhoids, denies bleeding from rectum, denies diverticulitis, denies constipation, denies diarrhea, denies loss of stool control, and denies hernias. Kidney/Bladder: The patient denies kidney stones, denies urine infections, and denies bloody urine. Skin: The patient denies a history of skin cancer, denies bleeding/changing moles, and denies a history of skin rash. Neurologic: The patient denies a history of epilepsy/convulsions, denies headaches, denies head/spinal injuries, and denies stroke/TIA. Psychiatric: The patient denies psychiatric medications, denies depression, and denies voices, denies substance abuse. Endocrine: The patient NOTES thyroid disorders, NOTES diabetes, and denies hormonal problems. Hematologic: The patient denies a history of bruising, denies bleeding, and denies anemia, denies blood clots. Infections: The patient denies a history of measles and mumps, denies rheumatic fever, and denies sexually transmitted diseases. Musculoskeletal: The patient denies back pain/injury, denies back problems, denies sciatica, NOTES knee/foot trouble, denies arthritis, or denies gout. When was patient's last Mammogram screening? Last Colonoscopy: 2012 Serina Catherine RN PHYSICAL EXAMINATION: General: The patient is 76 year old female, well nourished, well hydrated in no acute distress. The patient is oriented to time, place, and person. VITALS: Blood pressure 150/80, pulse 65, temperature 36.2 C (97.1 F), height 175.3 cm (5' 9 ), weight (!) 156.7 kg (345 lb 6.4 oz), SpO2 98 %. Body mass index is 51.01 kg/m . HEENT: Normal cephalic, ataumatic, pupils are equally round, sclera are anicteric, mucous membranes are moist, oropharynx is clear. Neck has no masses, asymmetry or lymphadenopathy. Thyroid is unremarkable. Respiratory: Clear to auscultation and percussion. Normal respiratory excursion and pattern. Cardiac: Examination is regular rate and rhythm. Abdominal exam: Soft, nontender, with no palpable masses. No hepatosplenomegaly. No palpable hernias. Rectal exam: exam deferred Extremities: no clubbing, cyanosis or edema. No adenopathy. Other: LABORATORY VALUES: As Noted RADIOLOGIC STUDIES: As Noted Assessment IMPRESSION: Colon cancer screening PLAN: I plan to perform lower endoscopy. We discussed the risks and benefits of the planned endoscopy. I have informed the patient that complications can occur including failure to complete the endoscopy and perforation. The patient had the opportunity to ask questions concerning the planned endoscopy. My staff has also explained the procedure to the patient in understandable terms and has given the patient printed material concerning the procedure. The patient freely consents to surgery. I plan to use golytely bowel preparation for endoscopy Diagnoses: (Z12.11) Colon cancer screening My findings have been communicated to Dr. Octavio Reza MD via shared medical record. This note will be forwarded to Dr. Octavio Reza MD. Return to Clinic: The patient is instructed to follow-up with me 1 week post operatively. COVID (Procedure Consent) Procedure Criteria Procedure Criteria: Yes Elective The surgeon/proceduralist and patient have discussed in detail the risk of exposure to and/or potential harm posed by the COVID-19 virus with having a surgery/procedure at this time versus the risk of delaying the surgery/procedure. It is not possible to know either the risk of delaying the surgery or procedure or chance of getting an infection with perfect accuracy, but a joint decision was made between the patient and the surgeon/proceduralist to proceed at this time with the scheduled surgery/procedure as indicated on the consent form. Holland Carmichael III, MD UPDATED HISTORY AND PHYSICAL EXAMINATION SERVICE DATE: 10/29/2021 SERVICE TIME: 7:53 AM PHYSICAL EXAM MUST BE COMPLETED ON ADMISSION The History and Physical (completed in the past 30 days) has been reviewed and the patient has been examined. The contents accurately reflect the patient's condition with the following additions or revisions since the H&P was completed. Examination indicates no changes. This H&P can be found in the attached. SIGNATURE: Holland Carmichael III, MD PATIENT NAME: Shereen Seals DATE: October 29, 2021 TIME: 7:53 AM documented in this encounter [facility] 10-27-2021 Miscellaneous Notes Spoke with patient on telephone. Patient verbalizes understanding of providers instructions. CHRISTOPHER Sosa Her BP was addressed in another encounter earlier today. If she notes a SBP greater than 150 today or tomorrow she should take an additional one half tablet of amlodipine 5 mg - additional 2.5 mg. Pt had called yesterday concerning blood pressure readings and having colonoscopy. Pt was advised her bp readings were good enough that she could still get colonoscopy. Pt reports last night she felt like she had a hot flash and took bp and it was 191/89 then a little later it was 165/93. Pt reports today she feels fine and bp is 158/89 then again up in the 160's. Pt reports she does feel anxious about bp running high and nervous she won't be able to get colonoscopy done on . Pt is also worried that when she just does fluids that her bp will be high. Pt is asking if she should still have colonoscopy and what she can do about bp running high. Rakel Agosto LPN documented in this encounter [facility] 10-27-2021 Miscellaneous Notes noted, recent BPs were in acceptable range spoke with patient, she would like to hold off on cancelling to see how tomorrow goes. Her blood pressure skyrocketed but really wants to get this colonoscopy complete, Spoke with Dr Carmichael and he stated the blood pressures were ok to have this complete Shin Garay Shereen called. She has a colonoscopy scheduled with Dr. Carmichael on 10/29/2021. She is concerned because her blood pressures have been running high. At her colonoscopy consultation, Dr. Carmichael stated that if her blood pressures are high the day of the procedure, he will have to cancel the appointment. Shereen sent her blood pressure reading to Dr. Reza, who reviewed them and did not see any problems with any of the readings and advised that she should move forward with the procedure. Shereen also states that she was on clear liquids yesterday and she is not feeling well . She states that she is nauseated. Shereen also has concerned because when she has diarrhea, her blood sugar bottom's out. At this time, she wants to cancel the colonoscopy, until her blood pressures are under better control. Please call to reschedule. Radha Lacy RN documented in this encounter [facility] 10-26-2021 Miscellaneous Notes Patient was notified of providers message and verbalized understanding. Patient is aware the BP readings also went to Dr. Carmichael as well. Below noted. The BP numbers reported below would not cause her to need to reschedule. Pt called and states her BP has been running high and she was told by Dr. Carmichael if her BP is high on 10-29-21 day of her colonoscopy he will not do the scope. Pt states her BP has been running high see below: 10-01-21 AM 129/68 PM 155/86 10-02-21 Am 168/88 PM 149/78 10-03-21 Am 149/75 PM 159/79 10-04-21 AM 154/85 PM 149/81 3- AM 136/72 PM 143/67 3- AM 144/70 PM 157/82 3- AM 144/74 PM 155/78 10-08- AM 149/78 PM 158/83 10-09-21 AM 150/81 PM 147/80 10-10-21 AM 157/78 10-11-21 AM 154/80 PM 158/87 -10-06 AM 161/84 PM 152/83 10-19-21 AM 144/77 PM 151/81 10-20-21 AM 150/89 PM 158/89 10-21-21 AM 61/85 PM 153/81 10-22-21 AM 145/79 PM 150/80 10-26-21 AM 140/83 Missed a few days above. Pt would like to know if she can increase medication now before her scope to get her numbers lower. She is afraid with her BP above he is going to cancel day of test after she has prepped and gets in there. Please advise pt today if possible. Cayla Lynne LPN documented in this encounter [facility] 10-26-2021 Miscellaneous Notes Spoke with pt and information listed below given. Pt verbalizes understanding. Cayla Lynne LPN If no problems with low sugars, may take Lantus dose as usual and just hold the humalog dose until she is able to eat after the colonoscopy. Also hold Humulin N dose till able to eat after colonoscopy If not able to eat until support time because of time of colonoscopy, does not need to take N until the next morning. For the day or two prior to colonoscopy, the amount of Humalog taken depends on whether able to get the same number of carbs from the liquids she is drinking as she would have with her regular diet. If not able able, then can hold or at least lower Humalog dose as she normally does with her SSI. If has had lows, then can lower Lantus from 27 units down to 20 to 22 units depending on how low she has been getting. Patient states she has a colonoscopy scheduled for 09/30/21 and reports she was to contact her PCP for instructions for her diabetic insulins/medications prior to procedure. Please advise patient. PH: [phone]. Thank you. documented in this encounter [facility] 10-22-2021 Miscellaneous Notes Patient has been identified by name and date of : Yes Patient phones for refill(s): Pending Prescriptions Disp Refills METOPROLOL TARTRATE 50 MG TABLET Sig: Take 1/2 tablet by mouth twice a day VITALY: No Date of last office visit in primary care: 09/11/21, NOV: 01/11/22 Last 2 Encounter Wt Readings: Date: Wt: 09/21/2021 156.7 kg (345 lb 6.4 oz) 09/11/2021 0 kg () Previous labs/tests for medication: Blood Pressure: BUN (mg/dL) Date Value 09/11/2021 19 Sodium (mmol/L) Date Value 09/11/2021 140 Last 1 Encounter BP Readings: Date: BP: 09/30/2021 140/82 Please advise. Thank you. Asmita Tapia RN documented in this encounter [facility] 09-22-2021 Miscellaneous Notes 10-29-2021 [facility] documented in this encounter [facility] 09-11-2021 History of Presen t illness Narrative This note was created using [employer]. Subjective Shereen Seals is a 76 year old female. Patient presents with: Follow Up SUBJECTIVE: Shereen Seals is a 76 year old year old lady here today for 4 month follow up appointment for review of medical conditions. Started drinking slimfast that was 6 months outdated but drank it and had pains the next day. Was in between her ribs and in her lower abdomen. Got diarrhea. Lousy for 3 days. Trying Mediterranean diet. Unreliable BP--plans to get new one. Has noted increased leg swelling lately. Might have been eating too much salt. Prefers to have BMP done today with some other labs as usual. Worries about developing DVT. Stays active, Takes aspirin 81 mg TID. Stomach upset noted. Gets pain in legs sometimes. Resolve spontaneously. Does stay hydrated. Does not sit for 3 to 4 hours without moving. PAST MEDICAL HISTORY Diagnosis Date Anal or rectal pain proctalgia Ankle fracture, right 03/06/2016 Anxiety state, unspecified Benign neoplasm of colon Charcot foot due to diabetes mellitus (HCC) Depressive disorder, not elsewhere classified DIABETES TYPE I W MANIF NOS 09/15/2005 Disorder of bone and cartilage, unspecified Esophageal reflux Essential hypertension, benign Incisional hernia 01/04/2013 Internal hemorrhoids without mention of complication Mitral valve disorders(424.0) Obesity, unspecified Other and unspecified hyperlipidemia Other seborrheic keratosis 10/12/2006 Rosacea 09/06/2007 Unspecified asthma(493.90) 11/2013 PFTs. 09/2013 and 10/2013 Ivette. Vitamin D deficiency 08/21/2010 Current Outpatient Medications Medication Sig aspirin, enteric coated (ASPIRIN, ENTERIC COATED) 81 mg EC tablet Take 1 tablet by mouth once daily. (Patient taking differently: Take 81 mg by mouth once daily. 3 daily ) nystatin (MYCOSTATIN) 100,000 unit/mL suspension Take 5 mL by mouth four times daily. 1tsp swish in mouth for several minutes, then swallow (or expectorate) 4 times daily until gone. fluconazole (DIFLUCAN) 100 mg tablet Take 2 tablets on day 1, then 1 tablet for 3 days. ramipril (ALTACE) 10 mg capsule Take 1 capsule by mouth twice daily. zolpidem (AMBIEN) 5 mg tablet Take 0.5-1 tablets by mouth at bedtime as needed for up to 90 days. fluticasone (FLONASE) 50 mcg/actuation nasal spray Use 1 [place] in each nostril once daily. blood sugar diagnostic (BLOOD GLUCOSE TEST) test strip Test blood sugar(s) 8 times daily--Medically Necessary for labile blood sugars (highs and lows). Dx: Other DM Code E10.8, E11.610 Insulin: Yes amLODIPine (NORVASC) 5 mg tablet Take 5 mg by mouth once daily. metoprolol tartrate, short acting, (LOPRESSOR) 50 mg tablet Take 1/2 tablet by mouth twice a day budesonide-formoterol (SYMBICORT) 160-4.5 mcg/actuation inhaler Inhale 2 Puffs as instructed twice daily. furosemide (LASIX) 20 mg tablet Take 1 tablet by mouth once daily as needed. cholecalciferol, Vitamin D3, (VITAMIN D3) 1,250 mcg (50,000 unit) cap capsule Take 1 capsule by mouth one time a week. insulin lispro (HUMALOG U-100 INSULIN) 100 unit/mL injection INJECT 3 TO 10 UNITS SUBCUTANEOUSLY BEFORE MEALS DAILY or as directed insulin glargine (LANTUS SOLOSTAR, BASAGLAR KWIKPEN) 100 unit/mL (3 mL) Inject 27 Units subcutaneously daily at bedtime. Give Lantus, not Basaglar per patient preference Insulin [place], Disposable, (BD ULTRA-FINE FADY PEN NEEDLE) 32 gauge x 5/32 Use one needle for each dose. 1-2 /day. insulin NPH injection (HumuLIN N,NovoLIN N) Inject 15-20 Units subcutaneously daily with breakfast. albuterol HFA (PROVENTIL HFA, VENTOLIN HFA) 90 mcg/actuation inhaler Inhale 2 Puffs as instructed four times daily as needed. FOR WHEEZING AND SHORTNESS OF BREATH. omeprazole (PRILOSEC) 20 mg capsule Take 1 capsule by mouth once daily. COMPOUNDED PRESCRIPTION Bi-PAP nose pads. COMPOUNDED PRESCRIPTION Bi-PAP nose pads. (G47.33) THAIS treated with BiPAP ibuprofen 200 mg tablet Take 1-2 tablets by mouth four times daily as needed (Take with food.). --currently only needing 1 pill twice daily to help with cough No current facility-administered medications for this visit. Review of Systems Objective BP 158/82 Pulse 62 Last 5 Encounter BP Readings: Date: BP: 09/11/2021 158/82 07/27/2021 146/78 07/02/2021 142/78 05/15/2021 122/78 05/11/2021 126/72 Last 5 Encounter Wt Readings: Date: Wt: 09/11/2021 0 kg () 07/27/2021 153.8 kg (339 lb) 07/02/2021 152.9 kg (337 lb) 05/15/2021 153.2 kg (337 lb 12.8 oz) 05/11/2021 150.1 kg (331 lb) Last 5 Encounter Pulse Readings: Date: Pulse: 09/11/2021 62 07/27/2021 68 07/02/2021 66 05/11/2021 60 04/30/2021 63 09/11/21 1047 09/11/21 1156 BP: 158/82 148/72 Pulse: 62 Physical Exam Constitutional: Appearance: Normal appearance. HENT: Head: Normocephalic. Eyes: Conjunctiva/sclera: Conjunctivae normal. Cardiovascular: Rate and Rhythm: Normal rate and regular rhythm. Heart sounds: Normal heart sounds. Pulmonary: Effort: Pulmonary effort is normal. Breath sounds: Normal breath sounds. Musculoskeletal: Right lower leg: Edema present. Left lower leg: Edema present. Skin: General: Skin is warm and dry. Neurological: General: No focal deficit present. Mental Status: She is alert and oriented to person, place, and time. Psychiatric: Mood and Affect: Mood normal. Behavior: Behavior normal. Thought Content: Thought content normal. Judgment: Judgment normal. Wearing her braces. No support stockings the past week because legs tight at top. Assessment and Plan ASSESSMENT/PLAN: 1. 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) - ICD9: 250.91, ICD10: E10.8 (primary diagnosis) Controlled. - Continue current medications - Encouraged regular aerobic exercise and weight loss - Exercise limited but encouraged to stay as active as able in order to lose weight to help with improving activity level. - COMP METABOLIC PANEL - CBC - HGB A1C - LIPID PANEL BASIC - ALBUMIN/CREAT RATIO RND UR - BASIC METABOLIC PNL 2. Essential hypertension - ICD9: 401.9, ICD10: I10 - suboptimal control - Continue current medication(s) - Recommended regular aerobic exercise. - Recommend home blood pressure monitoring, to bring results in on next visit - Discussed need and benefit for weight loss. - Goal of BP <130/80 - COMP METABOLIC PANEL - CBC - BASIC METABOLIC PNL - CBC 3. Morbid obesity with BMI of 45.0-49.9, adult (HCC) - ICD9: 278.01, V85.42, ICD10: E66.01, Z68.42 Needs to keep working on diet and exercise with lifestyle changes for effective weight loss as well as control of DM, and control of BP and lipids. 4. Vitamin D deficiency - ICD9: 268.9, ICD10: E55.9 Further evaluation and treatment as indicated. - VITAMIN D 25 HYDROXY - VITAMIN D 25 HYDROXY 5. Stasis edema of both lower extremities - ICD9: 459.30, ICD10: I87.303 Continue present management. 6. Mixed hyperlipidemia - ICD9: 272.2, ICD10: E78.2 Continue present management. - LIPID PANEL BASIC 7. Colon cancer screening - ICD9: V76.51, ICD10: Z12.11 - CONSULT TO GENERAL SURGERY Octavio Reza MD documented in this encounter [facility] documented as of this encounter (statuses as of 10/22/2021) [facility]10-[facility]-2021 History of Past illness Narrative* Problem Noted Date Resolved Date OVERWEIGHT 05/11/2021 Last Assessment & Plan: Has made dietary changes since recent hospitalization, decreased carbs, feels better, plans to work harder on wt loss. Getting 3 wheeled bike so she can go on trails, not just exercise bike indoors. documented as of this encounter (statuses as of 10/26/2021) [facility] History of Past illness Narrative* Problem Noted Date Resolved Date OVERWEIGHT 05/11/2021 Last Assessment & Plan: Has made dietary changes since recent hospitalization, decreased carbs, feels better, plans to work harder on wt loss. Getting 3 wheeled bike so she can go on trails, not just exercise bike indoors. documented as of this encounter (statuses as of 10/27/2021) [facility] History of Past illness Narrative* Problem Noted Date Resolved Date OVERWEIGHT 05/11/2021 Last Assessment & Plan: Has made dietary changes since recent hospitalization, decreased carbs, feels better, plans to work harder on wt loss. Getting 3 wheeled bike so she can go on trails, not just exercise bike indoors. documented as of this encounter (statuses as of 10/30/2021) [facility] History of Past illness Narrative* Problem Noted Date Resolved Date OVERWEIGHT 05/11/2021 Last Assessment & Plan: Has made dietary changes since recent hospitalization, decreased carbs, feels better, plans to work harder on wt loss. Getting 3 wheeled bike so she can go on trails, not just exercise bike indoors. documented as of this encounter (statuses as of 11/02/2021) [facility] History of Past illness Narrative* Problem Noted Date Resolved Date OVERWEIGHT 05/11/2021 Last Assessment & Plan: Has made dietary changes since recent hospitalization, decreased carbs, feels better, plans to work harder on wt loss. Getting 3 wheeled bike so she can go on trails, not just exercise bike indoors. documented as of this encounter (statuses as of 11/06/2021) [facility] History of Past illness Narrative* Problem Noted Date Resolved Date OVERWEIGHT 05/11/2021 Last Assessment & Plan: Has made dietary changes since recent hospitalization, decreased carbs, feels better, plans to work harder on wt loss. Getting 3 wheeled bike so she can go on trails, not just exercise bike indoors. documented as of this encounter (statuses as of 12/07/2021) [facility] History of Past illness Narrative* Problem Noted Date Resolved Date OVERWEIGHT 05/11/2021 Last Assessment & Plan: Has made dietary changes since recent hospitalization, decreased carbs, feels better, plans to work harder on wt loss. Getting 3 wheeled bike so she can go on trails, not just exercise bike indoors. documented as of this encounter (statuses as of 12/16/2021) [facility] History of Past illness Narrative* Problem Noted Date Resolved Date OVERWEIGHT 05/11/2021 Last Assessment & Plan: Has made dietary changes since recent hospitalization, decreased carbs, feels better, plans to work harder on wt loss. Getting 3 wheeled bike so she can go on trails, not just exercise bike indoors. documented as of this encounter (statuses as of 12/16/2021) [facility] History of Past illness Narrative* Problem Noted Date Resolved Date OVERWEIGHT 05/11/2021 Last Assessment & Plan: Has made dietary changes since recent hospitalization, decreased carbs, feels better, plans to work harder on wt loss. Getting 3 wheeled bike so she can go on trails, not just exercise bike indoors. documented as of this encounter (statuses as of 12/17/2021) [facility] History of Past illness Narrative* Problem Noted Date Resolved Date OVERWEIGHT 05/11/2021 Last Assessment & Plan: Has made dietary changes since recent hospitalization, decreased carbs, feels better, plans to work harder on wt loss. Getting 3 wheeled bike so she can go on trails, not just exercise bike indoors. documented as of this encounter (statuses as of 12/17/2021) [facility] History of Past illness Narrative* Problem Noted Date Resolved Date OVERWEIGHT 05/11/2021 Last Assessment & Plan: Has made dietary changes since recent hospitalization, decreased carbs, feels better, plans to work harder on wt loss. Getting 3 wheeled bike so she can go on trails, not just exercise bike indoors. documented as of this encounter (statuses as of 12/17/2021) [facility] History of Past illness Narrative* Problem Noted Date Resolved Date OVERWEIGHT 05/11/2021 Last Assessment & Plan: Has made dietary changes since recent hospitalization, decreased carbs, feels better, plans to work harder on wt loss. Getting 3 wheeled bike so she can go on trails, not just exercise bike indoors. documented as of this encounter (statuses as of 12/24/2021) [facility] History of Past illness Narrative* Problem Noted Date Resolved Date OVERWEIGHT 05/11/2021 Last Assessment & Plan: Has made dietary changes since recent hospitalization, decreased carbs, feels better, plans to work harder on wt loss. Getting 3 wheeled bike so she can go on trails, not just exercise bike indoors. documented as of this encounter (statuses as of 01/04/2022) [facility] History of Past illness Narrative* Problem Noted Date Resolved Date OVERWEIGHT 05/11/2021 Last Assessment & Plan: Has made dietary changes since recent hospitalization, decreased carbs, feels better, plans to work harder on wt loss. Getting 3 wheeled bike so she can go on trails, not just exercise bike indoors. documented as of this encounter (statuses as of 01/21/2022) [facility] History of Past illness Narrative* Problem Noted Date Resolved Date OVERWEIGHT 05/11/2021 Last Assessment & Plan: Has made dietary changes since recent hospitalization, decreased carbs, feels better, plans to work harder on wt loss. Getting 3 wheeled bike so she can go on trails, not just exercise bike indoors. documented as of this encounter (statuses as of 02/11/2022) [facility] History of Past illness Narrative* Problem Noted Date Resolved Date OVERWEIGHT 05/11/2021 Last Assessment & Plan: Has made dietary changes since recent hospitalization, decreased carbs, feels better, plans to work harder on wt loss. Getting 3 wheeled bike so she can go on trails, not just exercise bike indoors. documented as of this encounter (statuses as of 02/15/2022) [facility] History of Past illness Narrative* Problem Noted Date Resolved Date OVERWEIGHT 05/11/2021 Last Assessment & Plan: Has made dietary changes since recent hospitalization, decreased carbs, feels better, plans to work harder on wt loss. Getting 3 wheeled bike so she can go on trails, not just exercise bike indoors. documented as of this encounter (statuses as of 03/14/2022) [facility] History of Past illness Narrative* Problem Noted Date Resolved Date OVERWEIGHT 05/11/2021 Last Assessment & Plan: Has made dietary changes since recent hospitalization, decreased carbs, feels better, plans to work harder on wt loss. Getting 3 wheeled bike so she can go on trails, not just exercise bike indoors. documented as of this encounter (statuses as of 04/01/2022) [facility] History of Past illness Narrative* Problem Noted Date Resolved Date OVERWEIGHT 05/11/2021 Last Assessment & Plan: Has made dietary changes since recent hospitalization, decreased carbs, feels better, plans to work harder on wt loss. Getting 3 wheeled bike so she can go on trails, not just exercise bike indoors. documented as of this encounter (statuses as of 04/03/2022) [facility] History of Past illness Narrative* Problem Noted Date Resolved Date OVERWEIGHT 05/11/2021 Last Assessment & Plan: Has made dietary changes since recent hospitalization, decreased carbs, feels better, plans to work harder on wt loss. Getting 3 wheeled bike so she can go on trails, not just exercise bike indoors. documented as of this encounter (statuses as of 05/18/2022) [facility] History of Past illness Narrative* Problem Noted Date Resolved Date OVERWEIGHT 05/11/2021 Last Assessment & Plan: Has made dietary changes since recent hospitalization, decreased carbs, feels better, plans to work harder on wt loss. Getting 3 wheeled bike so she can go on trails, not just exercise bike indoors. documented as of this encounter (statuses as of 06/07/2022) [facility] History of Past illness Narrative* Problem Noted Date Resolved Date OVERWEIGHT 05/11/2021 Last Assessment & Plan: Has made dietary changes since recent hospitalization, decreased carbs, feels better, plans to work harder on wt loss. Getting 3 wheeled bike so she can go on trails, not just exercise bike indoors. documented as of this encounter (statuses as of 06/07/2022) [facility] History of Past illness Narrative* Problem Noted Date Resolved Date OVERWEIGHT 05/11/2021 Last Assessment & Plan: Has made dietary changes since recent hospitalization, decreased carbs, feels better, plans to work harder on wt loss. Getting 3 wheeled bike so she can go on trails, not just exercise bike indoors. documented as of this encounter (statuses as of 06/14/2022) [facility] History of Past illness Narrative* Problem Noted Date Resolved Date OVERWEIGHT 05/11/2021 Last Assessment & Plan: Has made dietary changes since recent hospitalization, decreased carbs, feels better, plans to work harder on wt loss. Getting 3 wheeled bike so she can go on trails, not just exercise bike indoors. documented as of this encounter (statuses as of 06/21/2022) [facility] History of Past illness Narrative* Problem Noted Date Resolved Date OVERWEIGHT 05/11/2021 Last Assessment & Plan: Has made dietary changes since recent hospitalization, decreased carbs, feels better, plans to work harder on wt loss. Getting 3 wheeled bike so she can go on trails, not just exercise bike indoors. documented as of this encounter (statuses as of 07/22/2022) [facility] History of Past illness Narrative* Problem Noted Date Resolved Date OVERWEIGHT 05/11/2021 Last Assessment & Plan: Has made dietary changes since recent hospitalization, decreased carbs, feels better, plans to work harder on wt loss. Getting 3 wheeled bike so she can go on trails, not just exercise bike indoors. documented as of this encounter (statuses as of 07/27/2022) [facility] History of Past illness Narrative* Problem Noted Date Resolved Date OVERWEIGHT 05/11/2021 Last Assessment & Plan: Has made dietary changes since recent hospitalization, decreased carbs, feels better, plans to work harder on wt loss. Getting 3 wheeled bike so she can go on trails, not just exercise bike indoors. documented as of this encounter (statuses as of 07/28/2022) [facility] History of Past illness Narrative* Problem Noted Date Resolved Date OVERWEIGHT 05/11/2021 Last Assessment & Plan: Has made dietary changes since recent hospitalization, decreased carbs, feels better, plans to work harder on wt loss. Getting 3 wheeled bike so she can go on trails, not just exercise bike indoors. documented as of this encounter (statuses as of 07/28/2022) [facility] History of Past illness Narrative* Problem Noted Date Resolved Date OVERWEIGHT 05/11/2021 Last Assessment & Plan: Has made dietary changes since recent hospitalization, decreased carbs, feels better, plans to work harder on wt loss. Getting 3 wheeled bike so she can go on trails, not just exercise bike indoors. documented as of this encounter (statuses as of 07/29/2022) [facility] History of Past illness Narrative* Problem Noted Date Resolved Date OVERWEIGHT 05/11/2021 Last Assessment & Plan: Has made dietary changes since recent hospitalization, decreased carbs, feels better, plans to work harder on wt loss. Getting 3 wheeled bike so she can go on trails, not just exercise bike indoors. documented as of this encounter (statuses as of 2022) [facility] History of Past illness Narrative* Problem Noted Date Resolved Date OVERWEIGHT 05/11/2021 Last Assessment & Plan: Has made dietary changes since recent hospitalization, decreased carbs, feels better, plans to work harder on wt loss. Getting 3 wheeled bike so she can go on trails, not just exercise bike indoors. documented as of this encounter (statuses as of 08/23/2022) [facility] History of Past illness Narrative* Problem Noted Date Resolved Date OVERWEIGHT 05/11/2021 Last Assessment & Plan: Has made dietary changes since recent hospitalization, decreased carbs, feels better, plans to work harder on wt loss. Getting 3 wheeled bike so she can go on trails, not just exercise bike indoors. documented as of this encounter (statuses as of 09/01/2022) [facility] History of Past illness Narrative* Problem Noted Date Resolved Date OVERWEIGHT 05/11/2021 Last Assessment & Plan: Has made dietary changes since recent hospitalization, decreased carbs, feels better, plans to work harder on wt loss. Getting 3 wheeled bike so she can go on trails, not just exercise bike indoors. documented as of this encounter (statuses as of 09/02/2022) [facility] History of Past illness Narrative* Problem Noted Date Resolved Date OVERWEIGHT 05/11/2021 Last Assessment & Plan: Has made dietary changes since recent hospitalization, decreased carbs, feels better, plans to work harder on wt loss. Getting 3 wheeled bike so she can go on trails, not just exercise bike indoors. documented as of this encounter (statuses as of 09/08/2022) [facility] History of Past illness Narrative* Problem Noted Date Resolved Date OVERWEIGHT 05/11/2021 Last Assessment & Plan: Has made dietary changes since recent hospitalization, decreased carbs, feels better, plans to work harder on wt loss. Getting 3 wheeled bike so she can go on trails, not just exercise bike indoors. documented as of this encounter (statuses as of 09/14/2022) [facility] History of Past illness Narrative* Problem Noted Date Resolved Date OVERWEIGHT 05/11/2021 Last Assessment & Plan: Has made dietary changes since recent hospitalization, decreased carbs, feels better, plans to work harder on wt loss. Getting 3 wheeled bike so she can go on trails, not just exercise bike indoors. documented as of this encounter (statuses as of 09/20/2022) [facility] History of Past illness Narrative* Problem Noted Date Resolved Date OVERWEIGHT 05/11/2021 Last Assessment & Plan: Has made dietary changes since recent hospitalization, decreased carbs, feels better, plans to work harder on wt loss. Getting 3 wheeled bike so she can go on trails, not just exercise bike indoors. documented as of this encounter (statuses as of 09/21/2022) [facility] History of Past illness Narrative* Problem Noted Date Resolved Date OVERWEIGHT 05/11/2021 Last Assessment & Plan: Has made dietary changes since recent hospitalization, decreased carbs, feels better, plans to work harder on wt loss. Getting 3 wheeled bike so she can go on trails, not just exercise bike indoors. documented as of this encounter (statuses as of 09/27/2022) [facility] History of Past illness Narrative* Problem Noted Date Resolved Date OVERWEIGHT 05/11/2021 Last Assessment & Plan: Has made dietary changes since recent hospitalization, decreased carbs, feels better, plans to work harder on wt loss. Getting 3 wheeled bike so she can go on trails, not just exercise bike indoors. documented as of this encounter (statuses as of 10/01/2022) [facility] History of Past illness Narrative* Problem Noted Date Resolved Date OVERWEIGHT 05/11/2021 Last Assessment & Plan: Has made dietary changes since recent hospitalization, decreased carbs, feels better, plans to work harder on wt loss. Getting 3 wheeled bike so she can go on trails, not just exercise bike indoors. documented as of this encounter (statuses as of 10/01/2022) [facility] History of Past illness Narrative* Problem Noted Date Resolved Date OVERWEIGHT 05/11/2021 Last Assessment & Plan: Has made dietary changes since recent hospitalization, decreased carbs, feels better, plans to work harder on wt loss. Getting 3 wheeled bike so she can go on trails, not just exercise bike indoors. documented as of this encounter (statuses as of 10/05/2022) [facility] History of Past illness Narrative* Problem Noted Date Resolved Date OVERWEIGHT 05/11/2021 Last Assessment & Plan: Has made dietary changes since recent hospitalization, decreased carbs, feels better, plans to work harder on wt loss. Getting 3 wheeled bike so she can go on trails, not just exercise bike indoors. documented as of this encounter (statuses as of 10/07/2022) [facility] History of Past illness Narrative* Problem Noted Date Diagnosed Date Resolved Date OVERWEIGHT 05/11/2021 Last Assessment & Plan: Has made dietary changes since recent hospitalization, decreased carbs, feels better, plans to work harder on wt loss. Getting 3 wheeled bike so she can go on trails, not just exercise bike indoors. documented as of this encounter (statuses as of 02/21/2023) [facility] History of Past illness Narrative* Problem Noted Date Diagnosed Date Resolved Date OVERWEIGHT 05/11/2021 Last Assessment & Plan: Has made dietary changes since recent hospitalization, decreased carbs, feels better, plans to work harder on wt loss. Getting 3 wheeled bike so she can go on trails, not just exercise bike indoors. documented as of this encounter (statuses as of 02/21/2023) [facility] History of Past illness Narrative* Problem Noted Date Diagnosed Date Resolved Date OVERWEIGHT 05/11/2021 Last Assessment & Plan: Has made dietary changes since recent hospitalization, decreased carbs, feels better, plans to work harder on wt loss. Getting 3 wheeled bike so she can go on trails, not just exercise bike indoors. documented as of this encounter (statuses as of 03/01/2023) [facility] History of Past illness Narrative* Problem Noted Date Diagnosed Date Resolved Date OVERWEIGHT 05/11/2021 Last Assessment & Plan: Has made dietary changes since recent hospitalization, decreased carbs, feels better, plans to work harder on wt loss. Getting 3 wheeled bike so she can go on trails, not just exercise bike indoors. documented as of this encounter (statuses as of 05/16/2023) [facility] History of Past illness Narrative* Problem Noted Date Diagnosed Date Resolved Date OVERWEIGHT 05/11/2021 Last Assessment & Plan: Has made dietary changes since recent hospitalization, decreased carbs, feels better, plans to work harder on wt loss. Getting 3 wheeled bike so she can go on trails, not just exercise bike indoors. documented as of this encounter (statuses as of 06/15/2023) [facility]10-[facility]-20[facility] History of Past illness Narrative* Problem Noted Date Diagnosed Date Resolved Date OVERWEIGHT 05/11/2021 Last Assessment & Plan: Has made dietary changes since recent hospitalization, decreased carbs, feels better, plans to work harder on wt loss. Getting 3 wheeled bike so she can go on trails, not just exercise bike indoors. documented as of this encounter (statuses as of 06/23/2023) [facility]10-[facility] History of Past illness Narrative* Problem Noted Date Diagnosed Date Resolved Date OVERWEIGHT 05/11/2021 Last Assessment & Plan: Has made dietary changes since recent hospitalization, decreased carbs, feels better, plans to work harder on wt loss. Getting 3 wheeled bike so she can go on trails, not just exercise bike indoors. documented as of this encounter (statuses as of 06/24/2023) [facility] History of Past illness Narrative* Problem Noted Date Diagnosed Date Resolved Date OVERWEIGHT 05/11/2021 Last Assessment & Plan: Has made dietary changes since recent hospitalization, decreased carbs, feels better, plans to work harder on wt loss. Getting 3 wheeled bike so she can go on trails, not just exercise bike indoors. documented as of this encounter (statuses as of 06/26/2023) [facility] History of Past illness Narrative* Problem Noted Date Diagnosed Date Resolved Date OVERWEIGHT 05/11/2021 Last Assessment & Plan: Has made dietary changes since recent hospitalization, decreased carbs, feels better, plans to work harder on wt loss. Getting 3 wheeled bike so she can go on trails, not just exercise bike indoors. documented as of this encounter (statuses as of 09/01/2023) [facility] History of Past illness Narrative* Problem Noted Date Diagnosed Date Resolved Date OVERWEIGHT 05/11/2021 Last Assessment & Plan: Has made dietary changes since recent hospitalization, decreased carbs, feels better, plans to work harder on wt loss. Getting 3 wheeled bike so she can go on trails, not just exercise bike indoors. 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)- Primary 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, not stated as uncontrolled Essential hypertension Unspecified essential hypertension Morbid obesity with BMI of 45.0-49.9, adult (HCC) Morbid obesity Vitamin D deficiency Unspecified vitamin D deficiency Stasis edema of both lower extremities Mixed hyperlipidemia Colon cancer screening Special screening for malignant neoplasms, colon [facility] Diagnosis Chest pain, unspecified type- Primary [facility] Diagnosis Chest pain, unspecified type [facility] Diagnosis Pain of right upper extremity- Primary [facility] Diagnosis Pain of upper abdomen- Primary Abdominal pain, other specified site Alternating constipation and diarrhea Other symptoms involving digestive system [facility] Diagnosis Breast cancer screening by mammogram- Primary Dense breasts Inconclusive mammogram [facility] Diagnosis Palpitations- Primary Encounter for immunization Need for other specified prophylactic vaccination against single bacterial disease [facility] Diagnosis 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)- Primary 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, not stated as uncontrolled Lipomas Vitamin D deficiency Unspecified vitamin D deficiency Insomnia, unspecified type [facility] Diagnosis 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, not stated as uncontrolled Charcot foot due to 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, not stated as uncontrolled [facility] Diagnosis 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)- Primary 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, not stated as uncontrolled Vitamin D deficiency Unspecified vitamin D deficiency Mixed hyperlipidemia Insomnia, unspecified type Stasis edema of both lower extremities Morbid obesity with BMI of 45.0-49.9, adult (HCC) Morbid obesity Encounter for long-term current use of medication Encounter for immunization Need for other specified prophylactic vaccination against single bacterial disease [facility] Diagnosis 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)- Primary 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, not stated as uncontrolled Stress at home Unspecified family circumstance [facility] Diagnosis Pneumonia due to COVID-19 virus- Primary Hypoxemia 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, not stated as uncontrolled Moderate persistent asthma without complication Unspecified asthma [facility] Diagnosis Essential hypertension- Primary Unspecified essential hypertension Palpitations 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, not stated as uncontrolled [facility] Diagnosis Cellulitis of female genitalia Unspecified inflammatory disease of cervix, vagina, and vulva [facility] Diagnosis Labial abscess- Primary Other abscess of vulva Bradycardia Other specified cardiac dysrhythmias [facility] Diagnosis Psoriasis of scalp- Primary Other psoriasis Seborrheic dermatitis Seborrheic dermatitis, unspecified Essential hypertension Unspecified essential hypertension Palpitations History of delirium Personal history of other mental disorder documented in this encounter [facility] note* Diagnosis Screening mammogram for breast cancer- Primary documented in this encounter [facility] note* Diagnosis Palpitations documented in this encounter [facility] note* Diagnosis Paroxysmal SVT (supraventricular tachycardia)- Primary Paroxysmal supraventricular tachycardia Palpitations documented in this encounter [facility] note* Diagnosis Severe persistent asthma without complication documented in this encounter [facility] note* Diagnosis Severe persistent asthma without complication- Primary Obesity, Class III, BMI 40-49.9 (morbid obesity) (HCC) Morbid obesity documented in this encounter [facility] note* Diagnosis 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)- Primary 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, not stated as uncontrolled Essential hypertension Unspecified essential hypertension Psoriasis of scalp Other psoriasis Vitamin D deficiency Unspecified vitamin D deficiency Class 3 severe obesity due to excess calories with body mass index (BMI) of 45.0 to 49.9 in adult, unspecified whether serious comorbidity present (HCC) Charcot foot due to diabetes mellitus (HCC) Type II or unspecified type diabetes mellitus with neurological manifestations, not stated as uncontrolled Encounter for immunization Need for other specified prophylactic vaccination against single bacterial disease documented in this encounter [facility] note* Diagnosis Polyarthralgia- Primary Pain in joint, multiple sites 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, not stated as uncontrolled Vitamin D deficiency Unspecified vitamin D deficiency Pain in finger of both hands documented in this encounter [facility] note* Diagnosis Polyarthralgia- Primary Pain in joint, multiple sites Pain in finger of both hands Elevated C-reactive protein (CRP) Elevated sedimentation rate documented in this encounter [facility] for referral (narrative)* Outpatient Procedure (Routine) - Closed Specialty Diagnoses / Procedures Referred By Belgica jalloh Referred To Contact [facility] Diagnoses Screening for colon cancer Procedures COLONOSCOPY SCREENING COLONOSCOPY FLX DX W/COLLJ SPEC WHEN PFRMD Holland Carmichael MD [address] [place] [address] [facility] [place] [address] [place] [address] Referral ID Status Reason Start Date Expiration Date V isits Requested Visits Authorized [id number] Closed Auto-Generate d Referral 09/22/2021 09/22/2022 1 1 [facility] for referral (narrative)* Outpatient Procedure (Routine) - Closed Specialty Diagnoses / Procedures Referred By Contac t Referred To Contact [facility] Diagnoses Screening for colon cancer Procedures COLONOSCOPY SCREENING COLONOSCOPY FLX DX W/COLLJ SPEC WHEN Holland Mercado MD [address] [place] [address] [facility] [address] [address] Referral ID Status Reason Start Date Expiration Date V isits Requested Visits Authorized [id number] Closed Auto-Generate d Referral 09/22/2021 09/22/2022 1 1 [facility] for referral (narrative)* Diagnostic Procedure Only (Routine) - Pending Review Specialty Diagnoses / Procedures Referred By Contac t Referred To Contact [facility] Diagnoses Breast cancer screening by mammogram Dense breasts Procedures KELLY SCREENING W MINAL SCREENING DIGITAL BREAST TOMOSYNTHESIS BI SCREENING MAMMOGRAPHY BI 2-VIEW BREAST INC CAD Lydia Grande, TECHNICAL PROJECT COORDINATOR.MEDICAL SERVICE TECHNICIAN [address] [place] [address] [facility] [address] [place] [address] Referral ID Status Reason Start Date Expiration Date Visits Requested Visits Authorized [id number] Pending Review Auto-Generat ed Referral 01/21/2022 02/19/2023 1 1 T [facility] for referral (narrative)* Diagnostic Procedure Only (Routine) - Pending Review Specialty Diagnoses / Procedures Referred By Contac t Referred To Contact [facility] Diagnoses Screening mammogram for breast cancer Procedures KELYL SCREENING W MINAL SCREENING DIGITAL BREAST TOMOSYNTHESIS BI SCREENING MAMMOGRAPHY BI 2-VIEW BREAST INC CAD Octavio Reza MD [address] [place] [address] [facility] [address] [place] [address] Referral ID Status Reason Start Date Expiration Date Visits Requested Visits Authorized [id number] Pending Review Auto-Generat ed Referral 02/21/2023 03/22/2024 1 1 [facility] for referral (narrative)* Outpatient Procedure (Routine) - Closed Specialty Diagnoses / Procedures Referred By Contac t Referred To [facility] Diagnoses Severe persistent asthma without complication Procedures NITRIC OXIDE, EXHALED NITRIC OXIDE GAS DETERMINATION Tierney Helm PA-C [address] [facility] [place] [address] [address] Referral ID Status Reason Start Date Expiration Date V isits Requested Visits Authorized [id number] Closed Auto-Generate d Referral 06/23/2023 07/22/2024 1 1 * Outpatient Procedure (Routine) - Closed Specialty Diagnoses / Procedures Referred By Contac t Referred To [facility] Diagnoses Severe persistent asthma without complication Procedures SPIROMETRY BASELINE ONLY SPMTRY W/VC EXPIRATORY MYRON W/WO MXML VOL VNTJ Tierney Helm PA-C [address] [facility] [place] [place] [address] [facility] [address] [place] [address] Referral ID Status Reason Start Date Expiration Date V isits Requested Visits Authorized [id number] Closed Auto-Generate d Referral 06/23/2023 07/17/2023 1 1 * Outpatient Procedure (Routine) - Closed Specialty Diagnoses / Procedures Referred By Contac t Referred To [facility] Diagnoses Severe persistent asthma without complication Procedures OXIMETRY WITH AMBULATION NONINVASIVE EAR/PULSE OXIMETRY MULTIPLE Tierney Huber PA-C [address] [facility] [place] [address] [facility] [address] [place] [address] Referral ID Status Reason Start Date Expiration Date V isits Requested Visits Authorized [id number] Closed Auto-Generate d Referral 06/23/2023 07/17/2023 1 1 [facility] for visit Narrative* Outpatient Procedure (Routine) - Closed Specialty Diagnoses / Procedures Referred By Belgica t Referred To Contact [facility] Diagnoses Screening for colon cancer Procedures COLONOSCOPY SCREENING COLONOSCOPY FLX DX W/COLLJ SPEC WHEN Holland Mercado MD [address] [facility] [place] [address] [facility] [address] [address] Referral ID Status Reason Start Date Expiration Date V isits Requested Visits Authorized [id number] Closed Auto-Generate d Referral 09/22/2021 09/22/2022 1 1 [facility] Advance Directives No Advanced Directives Records FoundDocuments on File Type Date Recorded Patient [employer] Expl anation Advance Directive(s) 09/30/2021 12:15 PM Documents on File Type Date Recorded Patient [employer] Expl anation Advance Directive(s) 10/29/2021 7:15 AM Advance Directive(s) 09/30/2021 12:15 PM Documents on File Type Date Recorded Patient [employer] Expl anation Advance Directive(s) 10/29/2021 7:15 AM Advance Directive(s) 09/30/2021 12:15 PM Medications Administered Section Inactive Administered Medications - up to 3 most recent administrations Medication Order MAR Action Action Date Dose Rate Site fentaNYL 50 mcg/mL 25-100 mcg injection (SUBLIMAZE) 25-100 mcg, INTRAVENOUS, DIRECTED, Starting on Dottie 10/29/21 at 0900, Until Dottie 10/29/21 at 1259, DOSING DIRECTED BY PHYSICIAN FOR PROCEDURAL SEDATION ONLY, Intraprocedure Given 10/29/2021 8:19 AM EDT 50 mcg lactated ringers iv infusion 30 mL/hr, INTRAVENOUS, CONTINUOUS, Starting on Dottie 10/29/21 at 0730, Until Dottie 10/29/21 at 0842, Preprocedure New Bag/Syringe/Bottle 10/29/2021 7:50 AM EDT 30 mL/hr 30 mL/hr midazolam (PF) 1-5 mg injection (VERSED) 1-5 mg, INTRAVENOUS, DIRECTED, Starting on Dottie 10/29/21 at 0900, Until Dottie 10/29/21 at 1259, DOSING DIRECTED BY PHYSICIAN FOR PROCEDURAL SEDATION ONLY, Intraprocedure Given 10/29/2021 8:22 AM EDT 2 mg Reason for Referral Specialty Diagnoses / Procedures Referred By Contac t Referred To Contact [facility] Surgery Diagnoses Colon cancer screening Procedures CONSULT TO GENERAL SURGERY OFFICE/OUTPATIENT [facility] 60-74 MINUTES Octavio Reza MD [address] [place] [id number] Holland Carmichael MD [address] [place] [id number] Referral ID Status Reason Start Date Expiration Date Visits Requested Visits Authorized [id number] Pending Review PCP Requested Referral 09/11/2021 09/11/2022 1 1 Specialty Diagnoses / Procedures Referred By Contac t Referred To Contact Orthopedics Diagnoses Pain of right upper extremity Procedures CONSULT PANEL TO ORTHOPAEDICS OFFICE/OUTPATIENT [facility] 60-74 MINUTES Wanda Phillips APRN.FINANCIAL DATA ANALYST [address] [place] [address] Referral ID Status Reason Start Date Expiration Date Visits Requested Visits Authorized [id number] Pending Review PCP Requested Referral 12/17/2021 12/17/2022 1 1 Specialty Diagnoses / Procedures Referred By Contac t Referred To Contact [facility] Diagnoses Pain of right upper extremity Procedures XR HUMERUS 2V AP/LAT RIGHT RADEX HUMERUS MINIMUM 2 VIEWS Wanda Phillips APRN.FINANCIAL DATA ANALYST [address] [place] [address] X[facility] Imaging Referral ID Status Reason Start Date Expiration Date V isits Requested Visits Authorized [id number] Closed Auto-Generate d Referral 12/17/2021 01/16/2023 1 1 Referral ID Status Reason Start Date Expiration Date V isits Requested Visits Authorized [id number] Closed Auto-Generate d Referral 12/17/2021 01/16/2023 1 1 Specialty Diagnoses / Procedures Referred By Contac t Referred To Contact Octavio Reza MD [address] [place] [address] Referral ID Status Reason Start Date Expiration Date Visits Re quested Visits Authorized [id number] Closed 1 1 Referral ID Status Reason Start Date Expiration Date Visits Re quested Visits Authorized [id number] Closed 1 1 Specialty Diagnoses / Procedures Referred By Contac t Referred To Contact Rheumatology Diagnoses Polyarthralgia Pain in finger of both hands Elevated C-reactive protein (CRP) Elevated sedimentation rate Procedures CONSULT TO RHEUM/IMMUN DISEASE OFFICE/OUTPATIENT [facility] 60 MINUTES Lydia Grande APRN.MADELIN [address] [place] [address] Referral ID Status Reason Start Date Expiration Date Visits Requested Visits Authorized [id number] Authorized PCP Requested Referral 09/05/2023 09/04/2024 1 1 Summary Purpose Family History No Family History Records Found Additional Source Comments Source Comments (unrecognize d section and content) In the event this informatio n is protected by the Federal Confidentiality of Alcohol and Drug Abuse Patient Records regulations: The Federal rules restrict any use of the information to criminally investigate or prosecute any alcohol or drug abuse patient.[facility] event this information is protected by the Federal Confidentiality of Alcohol and Drug Abuse Patient Records regulations: The Federal rules restrict any use of the information to criminally investigate or prosecute any alcohol or drug abuse patient.[facility] the event this information is protected by the Federal Confidentiality of Alcohol and Drug Abuse Patient Records regulations: The Federal rules restrict any use of the information to criminally investigate or prosecute any alcohol or drug abuse patient.[facility] the event this information is protected by the Federal Confidentiality of Alcohol and Drug Abuse Patient Records regulations: The Federal rules restrict any use of the information to criminally investigate or prosecute any alcohol or drug abuse patient.[facility] the event this information is protected by the Federal Confidentiality of Alcohol and Drug Abuse Patient Records regulations: The Federal rules restrict any use of the information to criminally investigate or prosecute any alcohol or drug abuse patient.[facility] the event this information is protected by the Federal Confidentiality of Alcohol and Drug Abuse Patient Records regulations: The Federal rules restrict any use of the information to criminally investigate or prosecute any alcohol or drug abuse patient.[facility] the event this information is protected by the Federal Confidentiality of Alcohol and Drug Abuse Patient Records regulations: The Federal rules restrict any use of the information to criminally investigate or prosecute any alcohol or drug abuse patient.[facility] the event this information is protected by the Federal Confidentiality of Alcohol and Drug Abuse Patient Records regulations: The Federal rules restrict any use of the information to criminally investigate or prosecute any alcohol or drug abuse patient.[facility] the event this information is protected by the Federal Confidentiality of Alcohol and Drug Abuse Patient Records regulations: The Federal rules restrict any use of the information to criminally investigate or prosecute any alcohol or drug abuse patient.[facility] the event this information is protected by the Federal Confidentiality of Alcohol and Drug Abuse Patient Records regulations: The Federal rules restrict any use of the information to criminally investigate or prosecute any alcohol or drug abuse patient.[facility] the event this information is protected by the Federal Confidentiality of Alcohol and Drug Abuse Patient Records regulations: The Federal rules restrict any use of the information to criminally investigate or prosecute any alcohol or drug abuse patient.[facility] the event this information is protected by the Federal Confidentiality of Alcohol and Drug Abuse Patient Records regulations: The Federal rules restrict any use of the information to criminally investigate or prosecute any alcohol or drug abuse patient.[facility] the event this information is protected by the Federal Confidentiality of Alcohol and Drug Abuse Patient Records regulations: The Federal rules restrict any use of the information to criminally investigate or prosecute any alcohol or drug abuse patient.[facility] the event this information is protected by the Federal Confidentiality of Alcohol and Drug Abuse Patient Records regulations: The Federal rules restrict any use of the information to criminally investigate or prosecute any alcohol or drug abuse patient.[facility] the event this information is protected by the Federal Confidentiality of Alcohol and Drug Abuse Patient Records regulations: The Federal rules restrict any use of the information to criminally investigate or prosecute any alcohol or drug abuse patient.[facility] the event this information is protected by the Federal Confidentiality of Alcohol and Drug Abuse Patient Records regulations: The Federal rules restrict any use of the information to criminally investigate or prosecute any alcohol or drug abuse patient.[facility] the event this information is protected by the Federal Confidentiality of Alcohol and Drug Abuse Patient Records regulations: The Federal rules restrict any use of the information to criminally investigate or prosecute any alcohol or drug abuse patient.[facility] the event this information is protected by the Federal Confidentiality of Alcohol and Drug Abuse Patient Records regulations: The Federal rules restrict any use of the information to criminally investigate or prosecute any alcohol or drug abuse patient.[facility] the event this information is protected by the Federal Confidentiality of Alcohol and Drug Abuse Patient Records regulations: The Federal rules restrict any use of the information to criminally investigate or prosecute any alcohol or drug abuse patient.[facility] the event this information is protected by the Federal Confidentiality of Alcohol and Drug Abuse Patient Records regulations: The Federal rules restrict any use of the information to criminally investigate or prosecute any alcohol or drug abuse patient.[facility] the event this information is protected by the Federal Confidentiality of Alcohol and Drug Abuse Patient Records regulations: The Federal rules restrict any use of the information to criminally investigate or prosecute any alcohol or drug abuse patient.[facility] the event this information is protected by the Federal Confidentiality of Alcohol and Drug Abuse Patient Records regulations: The Federal rules restrict any use of the information to criminally investigate or prosecute any alcohol or drug abuse patient.[facility] the event this information is protected by the Federal Confidentiality of Alcohol and Drug Abuse Patient Records regulations: The Federal rules restrict any use of the information to criminally investigate or prosecute any alcohol or drug abuse patient.[facility] the event this information is protected by the Federal Confidentiality of Alcohol and Drug Abuse Patient Records regulations: The Federal rules restrict any use of the information to criminally investigate or prosecute any alcohol or drug abuse patient.[facility]In the event this information is protected by the Federal Confidentiality of Alcohol and Drug Abuse Patient Records regulations: The Federal rules restrict any use of the information to criminally investigate or prosecute any alcohol or drug abuse patient.[facility] HospitalIn the event this information is protected by the Federal Confidentiality of Alcohol and Drug Abuse Patient Records regulations: The Federal rules restrict any use of the information to criminally investigate or prosecute any alcohol or drug abuse patient.[facility] HospitalIn the event this information is protected by the Federal Confidentiality of Alcohol and Drug Abuse Patient Records regulations: The Federal rules restrict any use of the information to criminally investigate or prosecute any alcohol or drug abuse patient.[facility] HospitalIn the event this information is protected by the Federal Confidentiality of Alcohol and Drug Abuse Patient Records regulations: The Federal rules restrict any use of the information to criminally investigate or prosecute any alcohol or drug abuse patient.[facility] HospitalIn the event this information is protected by the Federal Confidentiality of Alcohol and Drug Abuse Patient Records regulations: The Federal rules restrict any use of the information to criminally investigate or prosecute any alcohol or drug abuse patient.[facility] HospitalIn the event this information is protected by the Federal Confidentiality of Alcohol and Drug Abuse Patient Records regulations: The Federal rules restrict any use of the information to criminally investigate or prosecute any alcohol or drug abuse patient.[facility] HospitalIn the event this information is protected by the Federal Confidentiality of Alcohol and Drug Abuse Patient Records regulations: The Federal rules restrict any use of the information to criminally investigate or prosecute any alcohol or drug abuse patient.[facility] HospitalIn the event this information is protected by the Federal Confidentiality of Alcohol and Drug Abuse Patient Records regulations: The Federal rules restrict any use of the information to criminally investigate or prosecute any alcohol or drug abuse patient.[facility] HospitalIn the event this information is protected by the Federal Confidentiality of Alcohol and Drug Abuse Patient Records regulations: The Federal rules restrict any use of the information to criminally investigate or prosecute any alcohol or drug abuse patient.[facility] HospitalIn the event this information is protected by the Federal Confidentiality of Alcohol and Drug Abuse Patient Records regulations: The Federal rules restrict any use of the information to criminally investigate or prosecute any alcohol or drug abuse patient.[facility] HospitalIn the event this information is protected by the Federal Confidentiality of Alcohol and Drug Abuse Patient Records regulations: The Federal rules restrict any use of the information to criminally investigate or prosecute any alcohol or drug abuse patient.[facility] HospitalIn the event this information is protected by the Federal Confidentiality of Alcohol and Drug Abuse Patient Records regulations: The Federal rules restrict any use of the information to criminally investigate or prosecute any alcohol or drug abuse patient.[facility] HospitalIn the event this information is protected by the Federal Confidentiality of Alcohol and Drug Abuse Patient Records regulations: The Federal rules restrict any use of the information to criminally investigate or prosecute any alcohol or drug abuse patient.[facility] HospitalIn the event this information is protected by the Federal Confidentiality of Alcohol and Drug Abuse Patient Records regulations: The Federal rules restrict any use of the information to criminally investigate or prosecute any alcohol or drug abuse patient.[facility] HospitalIn the event this information is protected by the Federal Confidentiality of Alcohol and Drug Abuse Patient Records regulations: The Federal rules restrict any use of the information to criminally investigate or prosecute any alcohol or drug abuse patient.[facility] HospitalIn the event this information is protected by the Federal Confidentiality of Alcohol and Drug Abuse Patient Records regulations: The Federal rules restrict any use of the information to criminally investigate or prosecute any alcohol or drug abuse patient.[facility] HospitalIn the event this information is protected by the Federal Confidentiality of Alcohol and Drug Abuse Patient Records regulations: The Federal rules restrict any use of the information to criminally investigate or prosecute any alcohol or drug abuse patient.[facility] HospitalIn the event this information is protected by the Federal Confidentiality of Alcohol and Drug Abuse Patient Records regulations: The Federal rules restrict any use of the information to criminally investigate or prosecute any alcohol or drug abuse patient.[facility] HospitalIn the event this information is protected by the Federal Confidentiality of Alcohol and Drug Abuse Patient Records regulations: The Federal rules restrict any use of the information to criminally investigate or prosecute any alcohol or drug abuse patient.[facility] HospitalIn the event this information is protected by the Federal Confidentiality of Alcohol and Drug Abuse Patient Records regulations: The Federal rules restrict any use of the information to criminally investigate or prosecute any alcohol or drug abuse patient.[facility] HospitalIn the event this information is protected by the Federal Confidentiality of Alcohol and Drug Abuse Patient Records regulations: The Federal rules restrict any use of the information to criminally investigate or prosecute any alcohol or drug abuse patient.[facility] HospitalIn the event this information is protected by the Federal Confidentiality of Alcohol and Drug Abuse Patient Records regulations: The Federal rules restrict any use of the information to criminally investigate or prosecute any alcohol or drug abuse patient.[facility] HospitalIn the event this information is protected by the Federal Confidentiality of Alcohol and Drug Abuse Patient Records regulations: The Federal rules restrict any use of the information to criminally investigate or prosecute any alcohol or drug abuse patient.[facility] HospitalIn the event this information is protected by the Federal Confidentiality of Alcohol and Drug Abuse Patient Records regulations: The Federal rules restrict any use of the information to criminally investigate or prosecute any alcohol or drug abuse patient.[facility] HospitalIn the event this information is protected by the Federal Confidentiality of Alcohol and Drug Abuse Patient Records regulations: The Federal rules restrict any use of the information to criminally investigate or prosecute any alcohol or drug abuse patient.[facility] HospitalIn the event this information is protected by the Federal Confidentiality of Alcohol and Drug Abuse Patient Records regulations: The Federal rules restrict any use of the information to criminally investigate or prosecute any alcohol or drug abuse patient.[facility] HospitalIn the event this information is protected by the Federal Confidentiality of Alcohol and Drug Abuse Patient Records regulations: The Federal rules restrict any use of the information to criminally investigate or prosecute any alcohol or drug abuse patient.[facility] HospitalIn the event this information is protected by the Federal Confidentiality of Alcohol and Drug Abuse Patient Records regulations: The Federal rules restrict any use of the information to criminally investigate or prosecute any alcohol or drug abuse patient.[facility] HospitalIn the event this information is protected by the Federal Confidentiality of Alcohol and Drug Abuse Patient Records regulations: The Federal rules restrict any use of the information to criminally investigate or prosecute any alcohol or drug abuse patient.[facility] HospitalIn the event this information is protected by the Federal Confidentiality of Alcohol and Drug Abuse Patient Records regulations: The Federal rules restrict any use of the information to criminally investigate or prosecute any alcohol or drug abuse patient.[facility] HospitalIn the event this information is protected by the Federal Confidentiality of Alcohol and Drug Abuse Patient Records regulations: The Federal rules restrict any use of the information to criminally investigate or prosecute any alcohol or drug abuse patient.[facility] HospitalIn the event this information is protected by the Federal Confidentiality of Alcohol and Drug Abuse Patient Records regulations: The Federal rules restrict any use of the information to criminally investigate or prosecute any alcohol or drug abuse patient.[facility] HospitalIn the event this information is protected by the Federal Confidentiality of Alcohol and Drug Abuse Patient Records regulations: The Federal rules restrict any use of the information to criminally investigate or prosecute any alcohol or drug abuse patient.[facility] HospitalIn the event this information is protected by the Federal Confidentiality of Alcohol and Drug Abuse Patient Records regulations: The Federal rules restrict any use of the information to criminally investigate or prosecute any alcohol or drug abuse patient.[facility] HospitalIn the event this information is protected by the Federal Confidentiality of Alcohol and Drug Abuse Patient Records regulations: The Federal rules restrict any use of the information to criminally investigate or prosecute any alcohol or drug abuse patient.[facility] Reason for Visit (unrecogniz ed section and content) Reason Comments Patient Question Reason Comments Follow Up BP Reason Comments Surgery Cancelled colonoscopy with Dr. Carmichael on 10/29/2021 Reason Comments High blood pressure Reason Comments 10-29-2021 Colon [facility] Reason Comments Results colonoscopy Reason Comments Follow Up Reason Onset Date Comments Refill Request 12/16/2021 Reason Comments Arm Pain Pt denied accident/i njury reported (RT) shoulder/arm BS 148 Reason Comments Abdominal Pain Reason Comments Eye issue Reason Comments Mammogram Order Reason Comments Patient Update Reason Comments Hospital F/U Reason Onset Date Comments Refill Request 03/31/2022 Medication Problem 03/31/2022 Reason Comments Medication Question Reason Comments Medication Problem Reason Comments Lab Orders Reason Comments Follow Up Reason Onset Date Comments Refill Request 06/21/2022 Reason Comments High Blood Sugar Reason Comments Oxygen concern Reason Comments Physical Therapy Plan of Care FYI-No Action Needed Reason Comments Patient Update Orders Reason Onset Date Comments Refill Request 07/28/2022 Reason Comments Social Work Services Reason Comments Occupational Therapy Plan of Care Reason Comments [facility] OT POC Reason Comments Home Health Point of Care Results Reason Comments discharging from OT Reason Comments Hospital F/U Follow up [facility] and Av enue discharge Reason Comments Results Reason Comments Established Patient Reason Comments [facility] - medication question Reason Comments Vulvar problem Reason Comments Same Day Appointment lump in anus area x 1 week txd with antibiotics Reason Comments Lump on anus Reason Comments Follow Up 4 month Reason Comments patient asking for 3 D mamm order fax to [facility] Reason Comments Refill Request Reason Comments New Patient Palpitations Specialty Diagnoses / Procedures Referred By Contac t Referred To Contact Cardiology Diagnoses Palpitations Paroxysmal SVT (supraventricular tachycardia) Procedures CONSULT TO CARDIOLOGY OFFICE/OUTPATIENT NEW HIGH MDM 60-74 MINUTES Davon Wolfe APRN.FINANCIAL DATA ANALYST [address] [place] [address] Referral ID Status Reason Start Date Expiration Date Visits Requested Visits Authorized [id number] Pending Review PCP Requested Referral 11/12/2022 11/12/2023 1 1 Reason Onset Date Comments Refill Request 06/14/2023 Reason Comments Spirometry Specialty Diagnoses / Procedures Referred By Contac t Referred To [facility] Diagnoses Severe persistent asthma without complication Procedures OXIMETRY WITH AMBULATION NONINVASIVE EAR/PULSE OXIMETRY MULTIPLE DETER Tierney Helm PA-C [address] [place] [address] [facility] [address] [place] [address] Referral ID Status Reason Start Date Expiration Date V isits Requested Visits Authorized [id number] Closed Auto-Generate d Referral 06/23/2023 07/17/2023 1 1 Specialty Diagnoses / Procedures Referred By Contac t Referred To Contact [facility] Diagnoses Severe persistent asthma without complication Procedures NITRIC OXIDE, EXHALED NITRIC OXIDE GAS DETERMINATION Tierney Helm PA-C [address] [place] [address] [facility] [address] [place] [address] Referral ID Status Reason Start Date Expiration Date V isits Requested Visits Authorized [id number] Closed Auto-Generate d Referral 06/23/2023 07/22/2024 1 1 Reason Comments Established Patient Reason Comments F/U 4 month Labs prior Reason Comments Pain All over pain. 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 Relationship Specialty Start Date End Date Octavio Reza MD [address] [place] [id number] PCP - General Internal Medicine 08/24/10 Screener And Blender Operator Relationship Specialty Start Date End Date Octavio Reza MD [address] [place] [id number] PCP - General Internal Medicine 08/24/10 Screener And Blender Operator Relationship Specialty Start Date End Date Octavio Reza MD [address] [place] [id number] PCP - General Internal Medicine 08/24/10 Screener And Blender Operator Relationship Specialty Start Date End Date Octavio Reza MD [address] [place] [id number] PCP - General Internal Medicine 08/24/10 Screener And Blender Operator Relationship Specialty Start Date End Date Octavio Reza MD [address] [place] [id number] PCP - General Internal Medicine 08/24/10 Screener And Blender Operator Relationship Specialty Start Date End Date Octavio Reza MD [address] [place] [address], [place] [address] PCP - General Internal Medicine 08/24/10 Screener And Blender Operator Relationship Specialty Start Date End Date Octavio Reza MD [address] [place] [address], [place] [address] PCP - General Internal Medicine 08/24/10 Screener And Blender Operator Relationship Specialty Start Date End Date Octavio Reza MD [address] [place] [address], [place] [address] PCP - General Internal Medicine 08/24/10 Screener And Blender Operator Relationship Specialty Start Date End Date Octavio Reza MD [address] [place] [address], [place] [address] PCP - General Internal Medicine 08/24/10 Screener And Blender Operator Relationship Specialty Start Date End Date Octavio Reza MD [address] [place] [address], [place] [address] PCP - General Internal Medicine 08/24/10 Screener And Blender Operator Relationship Specialty Start Date End Date Octavio Reza MD [address] [place] [address], [place] [address] PCP - General Internal Medicine 08/24/10 Screener And Blender Operator Relationship Specialty Start Date End Date Octavio Reza MD [address] [place] [address], [place] [address] PCP - General Internal Medicine 08/24/10 Screener And Blender Operator Relationship Specialty Start Date End Date Octavio Reza MD [address] [place] [address], [place] [address] PCP - General Internal Medicine 08/24/10 Screener And Blender Operator Relationship Specialty Start Date End Date Octavio Reza MD [address] [place] [address], [place] [address] PCP - General Internal Medicine 08/24/10 Screener And Blender Operator Relationship Specialty Start Date End Date Octavio Reza MD [address] [place] [address], [place] [address] PCP - General Internal Medicine 08/24/10 Screener And Blender Operator Relationship Specialty Start Date End Date Octavio Reza MD [address] [place] [address], [place] [address] PCP - General Internal Medicine 08/24/10 Screener And Blender Operator Relationship Specialty Start Date End Date Octavio Reza MD [address] [place] [address], [place] [address] PCP - General Internal Medicine 08/24/10 Screener And Blender Operator Relationship Specialty Start Date End Date Octavio Reza MD [address] [place] [address], [place] [address] PCP - General Internal Medicine 08/24/10 Screener And Blender Operator Relationship Specialty Start Date End Date Octavio Reza MD [address] [place] [address], [place] [address] PCP - General Internal Medicine 08/24/10 Screener And Blender Operator Relationship Specialty Start Date End Date Octavio Reza MD [address] [place] [address], [place] [address] PCP - General Internal Medicine 08/24/10 Screener And Blender Operator Relationship Specialty Start Date End Date Octavio Reza MD [address] [place] [address], [place] [address] PCP - General Internal Medicine 08/24/10 Screener And Blender Operator Relationship Specialty Start Date End Date Octavio Reza MD [address] [place] [address], [place] [address] PCP - General Internal Medicine 08/24/10 Screener And Blender Operator Relationship Specialty Start Date End Date Octavio Reza MD [address] [place] [address] PCP - General Internal Medicine 08/24/10 Screener And Blender Operator Relationship Specialty Start Date End Date Octavio Reza MD [address] [place] [address] PCP - General Internal Medicine 08/24/10 Screener And Blender Operator Relationship Specialty Start Date End Date Octavio Reza MD [address] [place] [address] PCP - General Internal Medicine 08/24/10 Screener And Blender Operator Relationship Specialty Start Date End Date Octavio Reza MD [address] [place] [address] PCP - General Internal Medicine 08/24/10 Screener And Blender Operator Relationship Specialty Start Date End Date Octavio Reza MD [address] [place] [address] PCP - General Internal Medicine 08/24/10 Screener And Blender Operator Relationship Specialty Start Date End Date Octavio Reza MD [address] [place] [address] PCP - General Internal Medicine 08/24/10 Screener And Blender Operator Relationship Specialty Start Date End Date Octavio Reza MD [address] [place] [address] PCP - General Internal Medicine 08/24/10 Screener And Blender Operator Relationship Specialty Start Date End Date Octavio Reza MD [address] [place] [address] PCP - General Internal Medicine 08/24/10 Screener And Blender Operator Relationship Specialty Start Date End Date Octavio Reza MD [address] [facility] [place] [address] PCP - General Internal Medicine 08/24/10 Screener And Blender Operator Relationship Specialty Start Date End Date Octavio Reza MD [address] [place], [place] [id number] PCP - General Internal Medicine 08/24/10 Screener And Blender Operator Relationship Specialty Start Date End Date Octavio Reza MD [address] [place], [place] [id number] PCP - General Internal Medicine 08/24/10 INFORMATION SOURCE (unrecogn ized section and content) FOR RECORDS PERTAINING TO PATIENTS WHO ARE OR HAVE BEEN ENROLLED IN A CHEMICAL DEPENDENCY/SUBSTANCEABUSE PROGRAM, SOME INFORMATION MAY BE OMITTED. This clinical summary was aggregated from multiple sources. Caution should be exercised in using it in the provision of clinical care. This summary normalizes information from multiple sources, and as a consequence, information in this document may materially change the coding, format and clinical context of patient data. In addition, data may be omitted in some cases. CLINICAL DECISIONS SHOULD BE BASED ON THE PRIMARY CLINICAL RECORDS. [facility]. provides no warranty or guarantee of the accuracy or completeness of information in this document.
== END | disposition home or self-care (01) ==
LOC: CVS 18:46
PROVIDERS: PCP Internal Medicine; Referring Provider Emergency Medicine; Visit Provider Emergency Medicine
DX: R00.2 Palpitations (principal); I47.10 Supraventricular tachycardia, unspecified; G47.33 Obstructive sleep apnea (adult) (pediatric); Z87.891 Personal history of nicotine dependence; Z86.718 Personal history of other venous thrombosis and embolism
CPT/HCPCS: 80048; 84443; 85025; 93005; 93225; 93226; 99283

== ENCOUNTER 2023-09-21 00:19 | Emergency (ER) | payer MEDICARE, SELFPAY ==
[2023-09-21 00:22] VITALS: BP 160/70; PULSE 63; RESP 22; TEMP 36.4; O2SAT 99; BMI 50.7
--- NOTE | 2023-09-21 00:39 | EKG12_ITS ---
Test Reason : DYSRHYTHMIA Blood Pressure : / mmHG Vent. Rate : 065 BPM Atrial Rate : 065 BPM P-R Int : 128 ms QRS Dur : 076 ms QT Int : 422 ms P-R-T Axes : 084 035 065 degrees QTc Int : 438 ms Normal sinus rhythm Normal ECG Confirmed by Miguel Angel Bosch ([id number]), dictionary editor MAMIE HENDERSON ([id number]) on 09/21/2023 9:45:50 AM Referred By: LEONIDES Confirmed By:Miguel Angel Bosch
--- NOTE | 2023-09-21 00:39 | RAD_ITS ---
EXAM: XR CHEST, 1 VIEW CLINICAL INDICATION: chest pain TECHNIQUE: Frontal view of the chest. COMPARISON: Single view chest 05/28/2023 FINDINGS: LUNGS AND PLEURAL SPACES: Unremarkable. No consolidation or edema. No pneumothorax. No effusion. HEART: Unremarkable. Cardiac silhouette not enlarged. MEDIASTINUM: Central airways and mediastinal contour are unremarkable. BONES/JOINTS: Unremarkable. No acute fracture. SOFT TISSUES: Unremarkable. RAD/Chest 1 View (Portable) IMPRESSION: No radiographic evidence of acute cardiopulmonary disease. Electronically Signed: Mohsen Izquierdo MD at 1:01 EST ,
--- NOTE | 2023-09-21 00:39 | ED.VIS.CHEST ---
HPI History of Present Illness Chief Complaint: Palpitations Informant: patient Onset/Context/Timing Onset: Hours (1-2) Activity at onset: sudden, onset and activity on onset (getting ready for bed) Timing: Intermittent and Lasts (1-2 hrs; now gone) Quality: Positive for - (prickly) Location: Substernal Current Severity: Gone Maximum Severity: Moderate Worsened By: Nothing Relieved By: Nothing Associated Symptoms: Positive for Dyspnea, Lightheadedness and Palpitations; Negative for Nausea, Vomiting, Diaphoresis or Fever Narrative Narrative: Patient states she was getting ready for bed tonight and suddenly felt her heart racing, which made her feel lightheaded, little dyspneic, and having some prickling chest discomfort without radiation. [place] similar to prior episodes of SVT. She states she was on medication to prevent this remotely but taken off of it may be 10 years ago. She was seen here for 5 days ago for an episode which was the first 1 in a long time, she had a monitor placed that she is trying to turn in and has not followed up with cardiology yet but she had another episode tonight but it resolved just prior to getting here to the hospital. Currently asymptomatic. [facility] Medical History Abnormal EKG Asthma Bimalleolar ankle fracture Charcot's joint of left foot Diabetes mellitus, type II Essential hypertension GERD (gastroesophageal reflux disease) History of DVT (deep vein thrombosis) Hyperglycemia due to type 2 diabetes mellitus Hyperlipidemia Hypertension THAIS (obstructive sleep apnea) Palpitations Paroxysmal SVT (supraventricular tachycardia) Premature atrial contractions Premature ventricular contraction Sinus bradycardia Home Medications aspirin 81 mg tablet,delayed release 81 mg PO DAILY heart health 11/24/17 [History Last Taken 01/19/19 16:00] ramipril 10 mg capsule 10 mg PO BID HEART 01/19/19 [History Last Taken 01/19/19 21:00] cholecalciferol (vitamin D3) 1,250 mcg (50,000 unit) capsule 1,250 mcg PO QWEEK SUPPLEMENT 12/03/19 [History Last Taken Unknown] furosemide 20 mg tablet 20 mg PO DAILY PRN water pill 01/22/21 [History Last Taken Unknown] budesonide-formoterol HFA 160 mcg-4.5 mcg/actuation aerosol inhaler 2 puff inhalation BID ASTHMA 12/21/21 [History Last Taken Unknown] zolpidem 5 mg tablet 2.5 mg PO QHS PRN Insomnia 02/11/22 [History Last Taken Unknown] insulin lispro 100 unit/mL subcutaneous solution 6 unit subcut TIDCM dm 06/22/22 [History Last Taken Unknown] omeprazole magnesium 20 mg tablet,delayed release (Prilosec OTC) 20 mg PO DAILY GERD 06/22/22 [History Last Taken Unknown] albuterol sulfate 90 mcg/actuation aerosol inhaler (Ventolin HFA) 2 puff inhalation 4XD PRN sob #8.5 grams 07/14/22 [Rx Last Taken Unknown] amlodipine 5 mg tablet (Norvasc) 5 mg PO DAILY BLOOD PRESSURE 07/17/22 [History Last Taken Unknown] metoprolol tartrate 25 mg tablet 25 mg PO BID BLOOD PRESSURE 07/17/22 [History Last Taken Unknown] acetaminophen 325 mg tablet (Tylenol) 650 mg (2 x 325 mg) PO Q6H PRN PRN Pain 1-10 Or Fever >100.7 #0 tabs 08/02/22 [Rx Last Taken Unknown] insulin glargine-yfgn 100 unit/mL (3 mL) subcutaneous pen 24 unit (0.24 mL) subcut BID #15 mL 08/02/22 [Rx Last Taken Unknown] insulin lispro 100 unit/mL subcutaneous pen (Humalog KwikPen (U-100) Insulin) See Protocol subcut ACHS #0 mL 08/02/22 [Rx Last Taken Unknown] Allergy/AdvReac Type Severity Reaction Status Date / Time hydromorphone Allergy Severe Anaphylaxis Verified 09/16/23 17:54 tramadol Allergy Severe Anaphylaxis Verified 09/16/23 17:54 amiodarone Allergy Intermediate Swelling Verified 09/16/23 17:54 [place] And Derivatives Allergy Intermediate Hives Verified 09/16/23 17:54 morphine Allergy Intermediate confusion Verified 09/16/23 17:54 moxifloxacin Allergy Intermediate Shortness Verified 09/16/23 17:54 of breath nabumetone Allergy Intermediate damaged Verified 09/16/23 17:54 kidney penicillin G Allergy Intermediate TURNS BLUE Verified 09/16/23 17:54 propoxyphene Allergy Intermediate PT UNSURE Verified 09/16/23 17:54 OF REACTION acetaminophen [From [place]] Allergy Mild dystonia Verified 09/16/23 17:54 amlodipine Allergy Mild Abd Verified 09/16/23 17:54 cramps/diarrhea ascorbic acid Allergy Mild Itching Verified 09/16/23 17:54 [From [place] (ascorbate sodium)] desloratadine Allergy Mild headache Verified 09/16/23 17:54 glutamine Allergy Mild Itching Verified 09/16/23 17:54 [From Airborne (ascorbate sodium)] herbal complex no.124 Allergy Mild Itching Verified 09/16/23 17:54 [From Airborne (ascorbate sodium)] hydrocodone [From [place]] Allergy Mild dystonia Verified 09/16/23 17:54 lysine HCl Allergy Mild Itching Verified 09/16/23 17:54 [From Air[place] (ascorbate sodium)] multivitamin with minerals Allergy Mild Itching Verified 09/16/23 17:54 [From Airborne (ascorbate sodium)] pravastatin Allergy Unknown unknown Verified 09/16/23 17:54 rosuvastatin [From Crestor] Allergy Unknown myalgias Verified 09/16/23 17:54 simvastatin Allergy Unknown unknown Verified 09/16/23 17:54 escitalopram Allergy Other Verified 09/16/23 17:54 hydrochlorothiazide Allergy Other Verified 09/16/23 17:54 Kfkhjan-VNY-PzA Reductase AdvReac Severe myalgias Verified 09/16/23 17:54 Inhibitor [Ihmopcj-Cti-Epb Reductase Inhibitor] amoxicillin [From Augmentin] AdvReac Other Verified 09/16/23 17:54 clavulanic acid AdvReac Other Verified 09/16/23 17:54 [From Augmentin] codeine AdvReac Nausea Verified 09/16/23 17:54 naproxen [From Naprosyn] AdvReac Nausea Verified 09/16/23 17:54 Family History Mother Aortic stenosis Presence of permanent cardiac pacemaker Surgical History History of cholecystectomy History of herniorrhaphy History of tonsillectomy Status post ORIF of fracture of ankle Social History household members: spouse Smoking Status: Former smoker alcohol intake: never substance use type: does not use caffeine: Yes Type: coffee Number of servings: 3 ROS ROS ED Constitutional Constitutional ED: Denies chills or fever(s) Eyes Eyes: Denies change in vision or diplopia ENT ENT ED: Denies rhinorrhea or sore throat Cardiovascular Cardiovascular: Reports as per HPI, chest pain, palpitations and racing heartbeat; Denies orthopnea Respiratory/Chest Respiratory/Chest: Denies cough or orthopnea Gastrointestinal Gastrointestinal: Denies abdominal pain, diarrhea, nausea or vomiting Genitourinary Genitourinary ED: Denies dysuria or hematuria Musculoskeletal Musculoskeletal: Reports other Details: Chronic bilateral lower extremity foot drop/problems due to Charcot foot due to diabetes, no acute symptoms ; Denies back pain or neck pain Integumentary Denies abscess or rash Neurologic Neurologic: Denies headache(s), paresthesias or weakness Psychiatric Psychiatric: Denies anxiety or suicidal thoughts EXAM Physical Exam Const Vital Signs: 09/21/23 00:22 09/21/23 01:03 09/21/23 01:03 Temperature 97.5 F L Temperature Source Temporal Pulse Rate 63 62 Respiratory Rate 22 H 18 Respiratory Effort Blood Pressure 160/70 H 154/66 H Blood Pressure Mean 100 95 Pulse Ox 99 96 Oxygen Delivery Method Room Air Room Air 09/21/23 01:29 Temperature Temperature Source Pulse Rate Respiratory Rate Respiratory Effort Normal Non-Labored Blood Pressure Blood Pressure Mean Pulse Ox Oxygen Delivery Method Positive well nourished, well developed and obese Constitutional Narrative: Well-appearing no acute distress General Appearance ED: well developed and NAD Nutritional Appearance: obese HEENT Reports moist mucous membranes normocephalic and atraumatic Eyes PERRL and EOMs intact bilaterally Neck full ROM, supple and no JVD Resp normal respiratory effort and clear to auscultation bilaterally Cardio regular rate, regular rhythm and no murmurs Rate: Negative for tachycardic GI non-tender and non-distended Auscultation: normoactive bowel sounds Palpation: soft Back/Spine no CVA tenderness General Back: other FROM Extremity normal to inspection General Extremety ED: Yes edema; Negative for pulses abnormal or tenderness General Extremity: edema bilateral lower extremity Details: mild; Negative for pulses abnormal Neuro oriented x3, CN's II-XII intact bilaterally and no sensory deficits noted Sensorium / Orientation: awake and alert Motor Exam: strength 5/5 throughout Skin no rashes or lesions noted and no wounds Heart Score History: Slightly/Non-Suspicious ECG: Normal Age: >/= 65 years Risk Factors: 1 or 2 Risk Factors Troponin: </= Normal Limit Score: 3 MDM MDM MDM Narrative Medical decision making narrative: Patient asymptomatic and has normal EKG, given the chest discomfort or shortness of breath I thought it was prudent to obtain 2 sets of cardiac enzymes and observe her in the meantime. This was done and they were negative. Chest x-ray normal. She is ambulatory without recurrence of any dysrhythmias, although she was having some brief palpitations that felt like an occasional skip without any of the other symptoms, and upon looking at the monitor/telemetry data, this coincided with rare PACs. At this time I think she is stable to be discharged home with close outpatient cardiology follow-up. She used to see Dr. Lott with the [facility], but then she was referred to Dr. Lynn, with whom she did have a consultation at 1 point. She is welcome to follow-up with whoever she prefers and she was given the information for [facility] since I have that readily available. If she has recurrence of her dysrhythmia, we discussed vagal maneuvers that she could attend prior to returning here to the ER. She is comfortable with that plan. Lab Data Attestation: I reviewed the patient's lab results. Labs: Laboratory Results - last 24 hr 09/21/23 09/21/23 00:56 03:09 WBC 6.3 RBC 4.40 Hgb 12.5 Hct 38.8 MCV 88.2 MCH 28.4 MCHC 32.2 RDW Std Deviation 40.6 RDW Coeff of Madalyn 12.6 Plt Count 209 MPV 11.8 Immature Gran % (Auto) 0.200 Neut % (Auto) 67.5 Lymph % (Auto) 17.9 L [place] % (Auto) 8.3 Eos % (Auto) 5.8 H Baso % (Auto) 0.3 Absolute Neuts (auto) 4.2 Absolute Lymphs (auto) 1.12 Nucleated RBC % 0 Sodium 139 Potassium 3.8 Chloride 107 Carbon Dioxide 29.0 Anion Gap 3 L BUN 16 Creatinine 1.00 Estim Creat Clear Calc 74.72 Est GFR (MDRD) Af Amer 69 Est GFR (MDRD) Non-Af 57 L BUN/Creatinine Ratio 16.0 Glucose 148 H Calcium 9.0 Troponin I High Sens 10 10 Radiography Diagnostic Testing: Clinical Impression(s) from Imaging Studies Chest X-Ray 09/21/23 00:39 IMPRESSION: No radiographic evidence of acute cardiopulmonary disease. Electronically Signed: Mohsen Izquierdo MD at 1:01 EST , Rhythm Strip Rhythm Strip: Sinus Rhythm Rate: 65 Ectopy: PAC(s) EKG Initial EKG: Attestation: I personally reviewed and interpreted this EKG as follows: Interpretation: Sinus Rhythm and No Acute Injury Pattern Comments: nml EKG Discharge Plan Triage Chief Complaint: Palpitations ED Provider: Nik Nunez Dx/Rx/DC Orders Clinical Impression: Palpitations, Paroxysmal supraventricular tachycardia, PAC (premature atrial contraction) Instructions: ED Palpitations Prescriptions: No Action aspirin 81 mg tablet,delayed release (DR/EC) 81 mg PO DAILY cholecalciferol (vitamin D3) 1,250 mcg (50,000 unit) capsule 1,250 mcg PO QWEEK furosemide 20 mg tablet 20 mg PO DAILY PRN (Reason: water pill) insulin lispro 100 unit/mL solution 6 unit subcut TIDCM Protocol: 4. Sliding Scale Insulin High-Med Dosing Condition: 150-199 mg/dl = 2 units Condition: 200-259 mg/dl = 4 units Condition: 260-324 mg/dl = 6 units Condition: 325-374 mg/dl = 8 units Condition: 375-409 mg/dl = 10 units Condition: 410-449 mg/dl = 11 units Condition: Greater than 449 call physician Protocol Text: - Use for Total Daily Dose of Insulin 56-80 units - Patient who are insulin resistant or septic HIGH MEDIUM DOSING ALGORITHM Patient Comments: INJECT 3 TO 10 UNITS SUBCUTANEOUSLY BEFORE MEALS DIRECTED budesonide-formoterol 160-4.5 mcg/actuation HFA aerosol inhaler 2 puff inhalation BID omeprazole magnesium [Prilosec OTC] 20 mg tablet,delayed release (DR/EC) 20 mg PO DAILY ramipril 10 MG capsule 10 mg PO BID Patient Comments: TAKE 1 CAPSULE BY MOUTH TWICE DAILY zolpidem 5 mg Tablet 2.5 mg PO QHS PRN (Reason: Insomnia) albuterol sulfate [Ventolin HFA] 90 mcg/actuation HFA aerosol inhaler 2 puff INHALATION 4XD PRN (Reason: sob) Qty: 8.5 0RF Rx Instructions: use four times a day for the next seven days, then use every 6 hours as needed for shortness of breath amlodipine [Norvasc] 5 mg tablet 5 mg PO DAILY metoprolol tartrate 25 mg tablet 25 mg PO BID acetaminophen [Tylenol] 325 mg Tablet 650 mg PO Q6H PRN PRN (Reason: Pain 1-10 Or Fever >100.7) Qty: 0 0RF insulin lispro [Humalog KwikPen Insulin] 100 unit/mL Insulin Pen See Protocol subcut ACHS Qty: 0 0RF Protocol: 4. Sliding Scale Insulin High-Med Dosing Condition: 150-199 mg/dl = 2 units Condition: 200-259 mg/dl = 4 units Condition: 260-324 mg/dl = 6 units Condition: 325-374 mg/dl = 8 units Condition: 375-409 mg/dl = 10 units Condition: 410-449 mg/dl = 11 units Condition: Greater than 449 call physician Protocol Text: - Use for Total Daily Dose of Insulin 56-80 units - Patient who are insulin resistant or septic HIGH MEDIUM DOSING ALGORITHM insulin glargine-yfgn 100 unit/mL (3 mL) insulin pen 24 unit subcut BID Qty: 15 0RF Primary Care Provider: Luzma Palencia Referrals: Luzma Palencia MD [Primary Care Provider] - Areli Estevez PA [Med Staff - [facility]] - As soon as possible Disposition Disposition: Home, Self Care
--- OUTSIDE RECORDS SUMMARY | 2023-09-21 00:56 | XMS RPT_ITS | CCD ---
Author Name Unknown Address [address] [place] [address] Organization [facility] Care Team Providers Care Professional Nursing Tutor Name Role Phone Lydia Cook Unavailable Unavailable [...] Translations: [ACETAMINOPHEN-COD EINE] Drug Allergy [address] [facility] Work Phone: (20 sources) Albuterol; Translations: [ALBUTEROL SULFATE] Drug Allergy 4 GI Upset, Vomiting [facility] Work Phone: (20 sources) aMILoride / hydroCHLOROthiazid e; Translations: [AMILORIDE-HYDROCH LOROTHIAZIDE] Drug Allergy 1 Other: See Comments [facility] Work Phone: [phone] (20 sources) atorvastatin; Translations: [ATORVASTATIN] Drug Allergy [address] [facility] Work Phone: [phone] (20 sources) Escitalopram; Translations: [ESCITALOPRAM] Drug Allergy [address] [facility] Work Phone: (20 sources) Naproxen; Translations: [NAPROXEN] Drug Allergy 5 GI Upset [facility] Work Phone: (20 sources) Pravastatin; Translations: [PRAVASTATIN] Drug Allergy 7 GI Upset [facility] Work Phone: (20 sources) rosuvastatin; Translations: [ROSUVASTATIN] Drug Allergy [address] [facility] Work Phone: (20 sources) Simvastatin; Translations: [SIMVASTATIN] Drug Allergy [address] [facility] Work Phone: (16 sources) Doxycycline; Translations: [DOXYCYCLINE] Drug Allergy 3 GI Upset [facility] Work Phone: [phone] Medications Current [...] Drug Class(es) Dates Sig (Normalized) Sig (Original) [id number] 200 actuat albuterol 0.09 mg/actuat metered dose [...] Episodic Other nervous system disorders (3 sources) Drbgnqy-Dcsku-Lltna disease; Translations: [Hereditary motor and sensory neuropathy] [...] 09-30-2009 Episodic Other aftercare (1 source) Other [facility] (current[facility] drug therapy; Translations: [Encounter for long-term [...] 12:05-0500 Body weight 156.49 kg Lydia Grande DEPUTY CONTROLLER.TACTICAL DEBRIEFER Work Phone: [facility] 09-01-2023 12:05-0500 Diastolic blood pressure 74 mm[Hg] Lydia Grande DEPUTY CONTROLLER.TACTICAL DEBRIEFER Work Phone: [facility] 09-01-2023 12:05-0500 Heart rate 64 /min Ldyia Grande DEPUTY CONTROLLER.TACTICAL DEBRIEFER Work Phone: [facility] 09-01-2023 12:05-0500 Respiratory rate 16 /min Lydia Grande DEPUTY CONTROLLER.TACTICAL DEBRIEFER Work Phone: [facility] 09-01-2023 12:05-0500 SaO2% (BldA) [Mass fraction] 96 % Lydia Grande DEPUTY CONTROLLER.TACTICAL DEBRIEFER Work Phone: [facility] 09-01-2023 12:05-0500 Systolic blood pressure 144 mm[Hg] Lydia Grande DEPUTY CONTROLLER.TACTICAL DEBRIEFER Work Phone: [facility] 06-23-2023 08:53-0500 Diastolic blood pressure 84 mm[Hg] Tierney Mayra PA-C Work Phone: [facility] 06-23-2023 08:53-0500 Heart rate 57 /min Tierney Mayra PA-C Work Phone: [facility] 06-23-2023 08:53-0500 Respiratory rate 17 /min Tierney Mayra PA-C Work Phone: [facility] 06-23-2023 08:53-0500 SaO2% (BldA) [Mass fraction] 96 % Tierney Mayra PA-C Work Phone: [facility] 06-23-2023 08:53-0500 Systolic blood pressure 122 mm[Hg] Tierney Helm PA-C Work Phone: [facility] 05-23-2023 14:08-0500 Body temperature 97.2 [degF] Octavio Reza MD Work Phone: [facility] 05-23-2023 14:08-0500 Body weight 154.22 kg Octavio Reza MD Work Phone: [facility] 05-23-2023 14:08-0500 Diastolic blood pressure 82 mm[Hg] Octavio Reza MD Work Phone: [facility] 05-23-2023 14:08-0500 Heart rate 68 /min Octavio Reza MD Work Phone: [facility] 05-23-2023 14:08-0500 Respiratory rate 18 /min Octavio Reza MD Work Phone: [facility] 05-23-2023 14:08-0500 SaO2% (BldA) [Mass fraction] 98 % Octavio Reza MD Work Phone: [facility] 05-23-2023 14:08-0500 Systolic blood pressure 128 mm[Hg] Octavio Reza MD Work Phone: [facility] 05-16-2023 09:30-0400 Body height 176.5 cm Anant Lees MD Work Phone: [facility] 05-16-2023 09:30-0400 Body weight 153.77 kg Anant Lees MD Work Phone: [facility] 05-16-2023 09:30-0400 Diastolic blood pressure 73 mm[Hg] Anant Lees MD Work Phone: [facility] 05-16-2023 09:30-0400 Heart rate 60 /min Anant Lees MD Work Phone: [facility] 05-16-2023 09:30-0400 SaO2% (BldA) [Mass fraction] 97 % Anant Lees MD Work Phone: [facility] 05-16-2023 09:30-0400 Systolic blood pressure 124 mm[Hg] Anant Lees MD Work Phone: [facility] 01-17-2023 13:47-0400 Body temperature 97 [degF] Octavio Reza MD Work Phone: [facility] 01-17-2023 13:47-0400 Diastolic blood pressure 69 mm[Hg] Octavio Reza MD Work Phone: [facility] 01-17-2023 13:47-0400 Heart rate 63 /min Octavio Reza MD Work Phone: [facility] 01-17-2023 13:47-0400 Respiratory rate 18 /min Octavio Reza MD Work Phone: [facility] 01-17-2023 13:47-0400 SaO2% (BldA) [Mass fraction] 96 % Octavio Reza MD Work Phone: [facility] 01-17-2023 13:47-0400 Systolic blood pressure 122 mm[Hg] Octavio Reza MD Work Phone: [facility] 10-05-2022 12:57-0400 Body height 175.3 cm Davon Narda DEPUTY CONTROLLER.PATIENT RELATIONS COORDINATOR Work Phone: [facility] 10-05-2022 12:57-0400 Body temperature 97.39 [degF] Davon Narda DEPUTY CONTROLLER.PATIENT RELATIONS COORDINATOR Work Phone: [facility] 10-05-2022 12:57-0400 Body weight 151.05 kg Davon Narda DEPUTY CONTROLLER.PATIENT RELATIONS COORDINATOR Work Phone: [facility] 10-05-2022 12:57-0400 Diastolic blood pressure 62 mm[Hg] Davon Narda DEPUTY CONTROLLER.PATIENT RELATIONS COORDINATOR Work Phone: [facility] 10-05-2022 12:57-0400 Heart rate 71 /min Davon Narda DEPUTY CONTROLLER.PATIENT RELATIONS COORDINATOR Work Phone: [facility] 10-05-2022 12:57-0400 Respiratory rate 16 /min Davon Narda DEPUTY CONTROLLER.PATIENT RELATIONS COORDINATOR Work Phone: [facility] 10-05-2022 12:57-0400 SaO2% (BldA) [Mass fraction] 97 % Davon Narda DEPUTY CONTROLLER.PATIENT RELATIONS COORDINATOR Work Phone: [facility] 10-05-2022 12:57-0400 Systolic blood pressure 138 mm[Hg] Davon Narda DEPUTY CONTROLLER.PATIENT RELATIONS COORDINATOR Work Phone: [facility] 09-07-2022 18:00-0500 Diastolic blood pressure 64 mm[Hg] Octavio Reza MD Work Phone: [facility] 09-07-2022 18:00-0500 Systolic blood pressure 144 mm[Hg] Octavio Reza MD Work Phone: [facility] 09-07-2022 17:29-0500 Body temperature 97.9 [degF] Octavio Reza MD Work Phone: [facility] 09-07-2022 17:29-0500 Heart rate 77 /min Octavio Reza MD Work Phone: [facility] 09-07-2022 17:29-0500 Respiratory rate 18 /min Octavio Reza MD Work Phone: [facility] 09-07-2022 17:29-0500 SaO2% (BldA) [Mass fraction] 98 % Octavio Reza MD Work Phone: [facility] 08-17-2022 15:59-0500 Body temperature 98.2 [degF] Octavio Reza MD Work Phone: [facility] 08-17-2022 15:59-0500 Diastolic blood pressure 68 mm[Hg] Octavio Reza MD Work Phone: [facility] 08-17-2022 15:59-0500 Heart rate 61 /min Octavio Reza MD Work Phone: [facility] 08-17-2022 15:59-0500 Respiratory rate 18 /min Octavio Reza MD Work Phone: [facility] 08-17-2022 15:59-0500 SaO2% (BldA) [Mass fraction] 98 % Octavio Reza MD Work Phone: [facility] 08-17-2022 15:59-0500 Systolic blood pressure 120 mm[Hg] Octavio Reza MD Work Phone: [facility] 05-18-2022 09:19-0400 Diastolic blood pressure 80 mm[Hg] Octavio Reza MD Work Phone: [facility] 05-18-2022 09:19-0400 Heart rate 55 /min Octavio Reza MD Work Phone: [facility] 05-18-2022 09:19-0400 SaO2% (BldA) [Mass fraction] 98 % Octavio Reza MD Work Phone: [facility] 05-18-2022 09:19-0400 Systolic blood pressure 128 mm[Hg] Octavio Reza MD Work Phone: [facility] 02-15-2022 14:44-0400 Body weight 153.77 kg Lydia Grande DEPUTY CONTROLLER.TACTICAL DEBRIEFER Work Phone: [facility] 02-15-2022 14:44-0400 Diastolic blood pressure 60 mm[Hg] Lydia Grande DEPUTY CONTROLLER.TACTICAL DEBRIEFER Work Phone: [facility] 02-15-2022 14:44-0400 Heart rate 63 /min Lydia Grande DEPUTY CONTROLLER.TACTICAL DEBRIEFER Work Phone: [facility] 02-15-2022 14:44-0400 Respiratory rate 16 /min Lydia Grande DEPUTY CONTROLLER.TACTICAL DEBRIEFER Work Phone: [facility] 02-15-2022 14:44-0400 SaO2% (BldA) [Mass fraction] 96 % Lydia Grande DEPUTY CONTROLLER.TACTICAL DEBRIEFER Work Phone: [facility] 02-15-2022 14:44-0400 Systolic blood pressure 144 mm[Hg] Lydia Grande DEPUTY CONTROLLER.TACTICAL DEBRIEFER Work Phone: [facility] 01-11-2022 14:59-0400 Body weight 153.32 kg Octavio Reza MD Work Phone: [facility] 01-11-2022 14:59-0400 Diastolic blood pressure 82 mm[Hg] Octavio Reza MD Work Phone: [facility] 01-11-2022 14:59-0400 Heart rate 68 /min Octavio Reza MD Work Phone: [facility] 01-11-2022 14:59-0400 SaO2% (BldA) [Mass fraction] 97 % Octavio Reza MD Work Phone: [facility] 01-11-2022 14:59-0400 Systolic blood pressure 152 mm[Hg] Octavio Reza MD Work Phone: [facility] 12-23-2021 16:18-0400 Body temperature 97.11 [degF] Guillermo Maurer MD Work Phone: [facility] 12-23-2021 16:18-0400 Body weight 151.05 kg Guillermo Maurer MD Work Phone: [facility] 12-23-2021 16:18-0400 Diastolic blood pressure 82 mm[Hg] Guillermo Maurer MD Work Phone: [facility] 12-23-2021 16:18-0400 Heart rate 72 /min Guillermo Maurer MD Work Phone: [facility] 12-23-2021 16:18-0400 Respiratory rate 16 /min Guillermo Maurer MD Work Phone: [facility] 12-23-2021 16:18-0400 Systolic blood pressure 154 mm[Hg] Guillermo Maurer MD Work Phone: [facility] 12-17-2021 12:44-0400 Body temperature 97.11 [degF] Wanda Phillips DEPUTY CONTROLLER.PATIENT RELATIONS COORDINATOR Work Phone: [facility] 12-17-2021 12:44-0400 Diastolic blood pressure 88 mm[Hg] Wanda Praisler-Wood DEPUTY CONTROLLER.PATIENT RELATIONS COORDINATOR Work Phone: [facility] 12-17-2021 12:44-0400 Heart rate 71 /min Wanda Praisler-Wood DEPUTY CONTROLLER.PATIENT RELATIONS COORDINATOR Work Phone: [facility] 12-17-2021 12:44-0400 Respiratory rate 18 /min Wanda Praisler-Wood DEPUTY CONTROLLER.PATIENT RELATIONS COORDINATOR Work Phone: [facility] 12-17-2021 12:44-0400 SaO2% (BldA) [Mass fraction] 96 % Wanda Praisler-Wood DEPUTY CONTROLLER.PATIENT RELATIONS COORDINATOR Work Phone: [facility] 12-17-2021 12:44-0400 Systolic blood pressure 146 mm[Hg] Wanda Praisler-Wood DEPUTY CONTROLLER.PATIENT RELATIONS COORDINATOR Work Phone: [facility] 10-29-2021 09:00-0400 Diastolic blood pressure 66 mm[Hg] Holland Carmichael MD Work Phone: [facility] 10-29-2021 09:00-0400 Heart rate 80 /min Holland Carmichael MD Work Phone: [facility] 10-29-2021 09:00-0400 Respiratory rate 20 /min Holland Carmichael MD Work Phone: [facility] 10-29-2021 09:00-0400 SaO2% (BldA) [Mass fraction] 93 % Holland Carmichael MD Work Phone: [facility] 10-29-2021 09:00-0400 Systolic blood pressure 142 mm[Hg] Holland Carmichael MD Work Phone: [facility] 10-29-2021 07:58-0400 Body temperature 97.59 [degF] Holland Carmichael MD Work Phone: [facility] 09-11-2021 11:56-0500 Diastolic blood pressure 72 mm[Hg] Octavio Reza MD Work Phone: [facility] 09-11-2021 11:56-0500 Systolic blood pressure 148 mm[Hg] Octavio Reza MD Work Phone: [facility] 09-11-2021 10:47-0500 Heart rate 62 /min Octavio Reza MD Work Phone: [facility] 11-22-2016 10:37-0400 BMI (Body Mass Index) [...] BP Diastolic 70 mm[Hg] Bettina Vaca RN [facility] Work Phone: 07-21-2015 13:03-0500 BP Systolic 146 mm[Hg] Bettina Vaca RN [facility] Work Phone: 07-21-2015 13:03-0500 BSA (Body Surface Area) 2.65 m2 Bettina Vaca RN [facility] Work Phone: 07-21-2015 13:03-0500 Pulse (Heart Rate) 64 /min Bettina Vaca RN [facility] Work Phone: 07-21-2015 13:03-0500 Respiratory Rate 14 /min Bettina Vaca RN [facility] Work Phone: 07-21-2015 13:03-0500 Weight 158.76 kg Bettina Vaca RN [facility] Work Phone: 01-06-2015 15:20-0400 BMI (Body Mass Index) [facility] Work Phone: 03-15-2012 13:57-0400 Height 177.8 cm Bettina Vaca RN [facility] Work Phone: Encounters Encounter Date Encounter Type Care Provider Facility Start: 09-05-2023 Telephone encounter Lydia Saad butler DEPUTY CONTROLLER.TACTICAL DEBRIEFER Work Phone: [facility] Procedures Date Procedure Procedure Detail Performing Clinician Start: 06-23-2023 Noninvasive ear/puls e oximetry multiple deter Tierney Shoemaker [employer] Work Phone: Start: 06-23-2023 Nitric oxide gas determination Tierney Shoemaker [employer] Work Phone: Start: 05-18-2022 INFLUENZA SEASONAL QUADRIVALENT [...] Activity Detail Author Start: 10-29-2026 Colonoscopy [address] [facility] Start: 10-29-2026 COLORECTAL CANCER SCREENING COLORECTAL CANCER SCREENING [facility] Start: 10-29-2026 Screening for malign ant neoplasm of colon [facility] Start: 09-02-2024 Hepatitis B screening Urine Al bumin:Creatinine Ratio [facility] Start: 06-29-2024 Glaucoma screening Dilated Retinal E xam [facility] Start: 05-23-2024 Annual PCP Team Milk Tester matthias Disease Visit Annual PCP Team Chronic Disease Visit [facility] Start: 05-16-2024 BP Controlled (<130/80) BP Controlle d (<130/80) [facility] Start: 03-01-2024 Hemoglobin A1c measurement HbA1C [facility] Start: 01-18-2024 ANNUAL PCP TEAM WASTEWATER ENGINEER MATTHIAS DISEASE VISIT ANNUAL PCP TEAM CHRONIC DISEASE VISIT [facility] Start: 01-18-2024 BP CONTROLLED (<130/80) BP CONTROLLE D (<130/80) [facility] Start: 01-18-2024 COVID-19 VACCINE (#1) COVID-19 VACCI NE (#1) [facility] Immunizations Immunization Date Immunization Notes Care Provider Fa cility 05-18-2022 influenza, high-dose , quadrivalent vaccine (FLUZONE HIGH DOSE QUADRIVALENT) Octavio Reza MD Work Phone: [facility] 05-18-2022 influenza virus vaccine, unspecified formulation Anant Lees MD Work Phone: [facility] 07-02-2021 influenza, high-dose , quadrivalent vaccine (FLUZONE HIGH DOSE QUADRIVALENT) Octavio Reza MD Work Phone: [facility] 04-15-2020 influenza, high-dose , quadrivalent vaccine (FLUZONE HIGH DOSE QUADRIVALENT) Octavio Reza MD Work Phone: [facility] 04-16-2019 influenza, high dose seasonal, preservative-free Octavio Reza MD Work Phone: [facility] 04-12-2018 influenza, high dose seasonal, preservative-free Octavio Reza MD Work Phone: [facility] 04-11-2017 influenza, high dose seasonal, preservative-free Octavio Reza MD Work Phone: [facility] 05-10-2016 influenza, high dose seasonal, preservative-free Octavio Reza MD Work Phone: [facility] Work Phone: 04-16-2016 pneumococcal vaccine , unspecified formulation Octavio Reza MD Work Phone: [facility] 03-16-2016 pneumococcal conjuga te vaccine, 13 valent Octavio Reza MD Work Phone: [facility] Work Phone: 05-27-2015 influenza, high dose seasonal, preservative-free Otcavio Reza MD Work Phone: [facility] 06-12-2014 pneumococcal polysaccharide vaccine, 23 valent Octavio Reza MD Work Phone: [facility] 05-23-2013 influenza virus vaccine, unspecified formulation Octavio Reza MD Work Phone: [facility] 05-23-2013 influenza, seasonal, injectable Octavio Reza MD Work Phone: [facility] 04-13-2012 influenza virus vaccine, unspecified formulation Octavio Reza MD Work Phone: [facility] 06-01-2007 influenza virus vaccine, unspecified formulation Octavio Reza MD Work Phone: [facility] Work Phone: 05-18-2006 influenza virus vaccine, unspecified formulation Octavio Reza MD Work Phone: [facility] Work Phone: 06-15-2005 influenza virus vaccine, unspecified formulation Octavio Reza MD Work Phone: [facility] Work Phone: 07-26-2000 pneumococcal polysaccharide vaccine, 23 valent Octavio Reza MD Work Phone: [facility] Work Phone: NEGATED: Highlighted row has not occurred!06-25-2023 influenza (HD-IIV4) vaccine, age 65+ yr, high dose, quadrivalent, PF (FLUZONE HIGH-DOSE) Octavio Reza MD Work Phone: [facility] Work Phone: NEGATED: Highlighted row has not occurred!05-23-2023 influenza (HD-IIV4) vaccine, age 65+ yr, high dose, quadrivalent, PF (FLUZONE HIGH-DOSE) Lydia Grande APRN.TACTICAL DEBRIEFER Work Phone: [facility] NEGATED: Highlighted row has not occurred!02-15-2022 COVID-19 vaccine, age 12+ yr ([employer]) Lydia Grande APRN.TACTICAL DEBRIEFER Work Phone: [facility] Work Phone: NEGATED: Highlighted row has not occurred!02-15-2022 influenza virus vaccine, unspecified formulation Lydiajennifer Grande APRN.TACTICAL DEBRIEFER Work Phone: [facility] Work Phone: NEGATED: Highlighted row has not occurred!02-15-2022 tetanus toxoid, reduced diphtheria toxoid, and acellular pertussis vaccine, adsorbed Lydia Grande APRN.TACTICAL DEBRIEFER Work Phone: [facility] Work Phone: Payers Date Payer Category Payer Medicare [employer] MEDICARE A ETNA MEDICARE PPO [id number] 2021-Present [phone] [address] [place] [address] PPO [id number] 2021 Medicare [id number] 2021 Medicare [id number] Social History Date Type Detail Facility Start: 09-07-2022 Tobacco smoking stat us NHIS Ex-smoker [facility] End: 10-21-1998 History of tobacco use Current smoker [facility] End: 10-21-1998 History of tobacco use Cigarette Smoker [facility] Start: 09-30-2021 End: 09-01-2023 Alcohol intake Current drinker of alcohol (finding) [facility] Start: 02-24-2018 History SDOH Alcohol Comment Rarely [facility] Start: 1945 Sex Assigned At Not on file [facility] Start: 09-20-2021 End: 05-18-2022 Exposure to SARS-CoV-2 (event) Not sure [facility] Start: 12-13-2021 End: 12-23-2021 Exposure to SARS-CoV-2 (event) Unable to assess [facility] Work Phone: Start: 09-07-2022 End: 01-17-2023 Cigarettes smoked current (pack per day) - Reported 0.[address] [facility] Start: 09-07-2022 Tobacco use and exposure Smokeless tobacco non-user [facility] Work Phone: Start: 01-11-2022 End: 01-17-2023 Tobacco use panel [facility] Adult Depression Screening Assessment [address] [facility] Medical Equipment Procedure Code Equipment Code [...] went over results, notes from Lydia Grande DISPENSARY CLERK with understanding,. After going over questions with Sed rate and CRP being elevated. Patient wants to stay locally to see Liquid Hydrogen Plant Operator since she is in wheel chair and [...] If she would like to see a flooring professional I can place a consult. Schedule if [...] Lymph 1.00 - 4.00 k/uL 0.48 (L) [place]% % 6.3 Abs [place] <0.87 k/uL 0.46 [place]% % 3.6 Abs [...] able. Thank you. documented in this encounter [facility] 09-01-2023 Note HNO ID: [id number] Author: LYDIA GRANDE APRN.CNS Service: ? Author [...] Alleviate: advil seemed to help Aggravate: no Gpli-soq-ikdeofo: Prior occurrence: no Review of Systems Respiratory: Negative. Musculoskeletal: Positive for arthralgias. Objective BP 144/74 Pulse 64 Resp 16 Wt (!) 156.5 kg (345 lb) SpO2 96% BMI 50.95 kg/m? Physical Exam Vitals and nursing note reviewed. Constitutional: Appearance: Normal appearance. HENT: Head: Normocephalic and atraumatic. Mouth/Throat: Lips: [place]. Mouth: Mucous membranes are moist. Eyes: Conjunctiva/sclera: [...] Nausea Ventolin [Albu (more content not included)... [facility] 09-01-2023 History of Presen t [...] Alleviate: advil seemed to help Aggravate: no Vxzz-owx-ixnwmat: Prior occurrence: no Review of Systems Respiratory: Negative. Musculoskeletal: Positive for arthralgias. Objective BP 144/74 Pulse 64 Resp 16 Wt (!) 156.5 kg (345 lb) SpO2 96% BMI 50.95 kg/m Physical Exam Vitals and nursing note reviewed. Constitutional: Appearance: Normal appearance. HENT: Head: Normocephalic and atraumatic. Mouth/Throat: Lips: [place]. Mouth: Mucous membranes are moist. Eyes: Conjunctiva/sclera: [...] by mouth one time a week. Insulin Mullens, Disposable, (BD ULTRA-FINE FADY PEN NEEDLE) 32 [...] be seen sooner for follow-up. Lydia Grande APRN.TACTICAL DEBRIEFER Medical Decision Making: Problems: Low: Acute, uncomplicated illness or injury Data: Unique test(s) ordered: 3+ Risk: Moderate: Drug management Medical Decision Making Level: 4 - Moderate documented in this encounter [facility] 06-23-2023 Note HNO ID: [id number] Author: Zora Cortes RPFT Service: ? Author [...] DATE: June 23, 2023 TIME: 9:38 AM [facility] 06-23-2023 Note HNO ID: [id number] Author: Zora Cortes RPFT Service: ? Author [...] unable to ambulate at a faster pace [facility] 06-23-2023 Note HNO ID: [id number] Author: Zora Cortes RPFT Service: ? Author Type: Respiratory Therapist Type: Progress Notes Filed: 06/23/2023 9:38 AM Note Text: PULM FUNCTION SMARTBLOCK: Provider: Tierney Helm PA-C Assisting Tech: Zora Cortes RPFT Spirometry: 1 Oximetry - Ambulation: 1 Exhaled Nitric Oxide: 1 [facility] 06-23-2023 Note HNO ID: [id number] Author: Tierney Helm PA-C Service: ? Author Type: Physician Cash Room Clerk Type: Progress Notes Filed: 06/24/2023 9:51 AM [...] that time patient has been admitted to [facility] on two occasions. The first being [...] area once hugh (more content not included)... [facility] 06-23-2023 History of Presen t [...] that time patient has been admitted to [facility] on two occasions. The first being [...] (Patient not taking: Reported on 05/23/2023) Insulin Mullens, Disposable, (BD ULTRA-FINE FADY PEN NEEDLE) 32 [...] 04/18/2017 56.0 (A) PFT, 06/23/2023 CXR, 05/28/2023 [facility] FINDINGS: The lungs are clear and [...] Tierney Helm PA-C documented in this encounter [facility] 06-14-2023 Miscellaneous Notes Patient has been [...] Gloria Rand RN. documented in this encounter [facility] 05-23-2023 Note HNO ID: [id number] Author: Octavio Reza MD Service: ? Author Type: Physician Type: Progress Notes Filed: 06/25/2023 10:51 PM Note Text: This note was created using Netheosriter. Subjective Shereen Seals is a 77 year old female. Patient presents with: F/U 4 month: Labs prior SUBJECTIVE: Shereen Seals is a 77 year old year old lady here today for 4 month follow up appointment for review of medical conditions. Had low sugar this AM at 69. Able to get juice. Reviewed had bad experience at [facility]. Noted saw Dr. Lees. Working on [...] times daily before meals. As directed Insulin Mullens, Disposable, (BD ULTRA-FINE FADY PEN NEEDLE) 32 [...] 9.5 ). Weight (more content not included)... [facility] 05-23-2023 Instructions Octavio eRza MD - 05/23/2023 2:53 PM EST Biking--keep [...] antifungal shampoo [31,32]. documented in this encounter [facility] 05-23-2023 History of Presen t illness Narrative This note was created using Netheosriter. Subjective Shereen Seals is a 77 year old female. Patient presents with: F/U 4 month: Labs prior SUBJECTIVE: Shereen Seals is a 77 year old year old lady here today for 4 month follow up appointment for review of medical conditions. Had low sugar this AM at 69. Able to get juice. Reviewed had bad experience at [facility]. Noted saw Dr. Lees. Working on [...] times daily before meals. As directed Insulin Mullens, Disposable, (BD ULTRA-FINE FADY PEN NEEDLE) 32 [...] the date of the service which included eahm-nt-bjlo patient care, completing clinical documentation, obtaining and/or reviewing separately obtained history, performing a medically appropriate examination, counseling and educating the patient/family/caregiver, ordering medications, tests, or procedures, independently interpreting results (not separately reported), and communicating results to the patient/family/caregiver. Octavio Reza MD documented in this encounter [facility] 05-16-2023 Note HNO ID: [id number] Author: Anant Lees MD Service: ? Author Type: Physician Type: Progress Notes Filed: 05/16/2023 10:02 AM Note Text: Anant Lees MD Interventional Cardiology [address] [place] [address] Chief Complaint Patient presents with: New Patient: [...] injection (HumuLIN N,Deidra (more content not included)... [facility] 05-16-2023 History of Presen t illness Narrative Images from the original note were not included. Anant Lees MD Interventional Cardiology [address] [place] [address] Chief Complaint Patient presents with: New Patient: [...] time a week. 12 capsule 4 Insulin Mullens, Disposable, (BD ULTRA-FINE FADY PEN NEEDLE) 32 [...] correct any errors. documented in this encounter [facility] 03-01-2023 Miscellaneous Notes Okayed [facility] 01/17/23 NOV 05/23/23 Charisse Yu MA [...] advise. Himanshu Bolden documented in this encounter [facility] 02-21-2023 Miscellaneous Notes Printed order and faxed to [facility] as requested. Phoned patient and aware order was faxed as requested. Filed order Fax order as requested Patient calling she had received her reminder from [facility] that she will need new order for 3 D mamm faxed to [phone]. Pending order to file. Please call patient when order has been faxed so she can schedule her appt at [facility]. Please advise documented in this encounter [facility] 01-17-2023 Note HNO ID: [id number] Author: Octavio Reza MD Service: ? Author Type: Physician Type: Progress Notes Filed: 02/21/2023 12:42 AM Note Text: This note was created using Netheosriter. Subjective Shereen Seals is a 77 year [...] past. Noted had a terrible time with [facility] in the hospital. Was bad. Ended [...] by mouth once daily as needed. Insulin Mullens, Disposable, (BD ULTRA-FINE FADY PEN NEEDLE) 32 [...] kg () 02/15/2022 (more content not included)... [facility] 01-17-2023 Instructions Octavio Reza MD [...] once a week. documented in this encounter [facility] 01-17-2023 History of Presen t illness Narrative This note was created using Netheosriter. Subjective Shereen Seals is a 77 year [...] past. Noted had a terrible time with [facility] in the hospital. Was bad. Ended [...] by mouth once daily as needed. Insulin Mullens, Disposable, (BD ULTRA-FINE FADY PEN NEEDLE) 32 [...] which included preparing to see the patient, nore-fr-trgv patient care, completing clinical documentation, obtaining and/or reviewing separately obtained history, performing a medically appropriate examination, counseling and educating the patient/family/caregiver, ordering medications, tests, or procedures, independently interpreting results (not separately reported), and communicating results to the patient/family/caregiver. Octavio Reza MD documented in this encounter [facility] 11-12-2022 Note HNO ID: [id number] Author: Davon Wolfe APRN.PATIENT RELATIONS COORDINATOR Service: ? Author Type: Nurse Practitioner Type: Progress Notes Filed: 11/12/2022 4:10 PM Note Text: SUBJECTIVE Shereen Seals is a 77 year old female here today for an Er follow up. Chief Complaint Patient presents with: ER F/U: [facility] ER 11/04/22 due to palpitations/weakness HPI Shereen Seals is a 77 year old female established patient of Dr. Reza who presents today for ER follow up. She was seen in ER at [facility] on 11/04/2022 for issues with palpitations and weakness. On oxygen from prior COVID-19 infection. Monitors with a pulse ox, noticing heart rate being low and more irregular and erratic with spo2 monitoring. Referred to see cardiology, following up with [facility], saw Oren in the past. [...] DM Code E10.8, E11.610 Insulin: Yes Insulin Mullens, Disposable, (BD ULTRA-FINE FADY PEN NEEDLE) 32 [...] PROBLEM LIST Chronic Obstructive Asthma With Exacerbation ([facility]) - 11/12/2022 Acute Respiratory Failure With Hypoxia ([facility]) - 11/12/2022 Paroxysmal Svt (Supraventricular Tachycardia) ([facility]) - 11/12/2022 Adverse Reaction to Hmg-Coa Reductase Inhibitor - 06/07/2022 Comment: Historical: see allergies Stasis Edema of Both Lower Extremities - 04/27/2018 Morbid Obesity With Bmi of 45.0-49.9, Adult ([facility]) - 04/18/2017 Asthma - 05/06/2014 Vitamin D Deficiency - 08/21/2010 Charcot Foot Due to Diabetes Mellitus ([facility]) Debility - 09/30/2009 Rosacea - 09/06/2007 Insomnia, Unspecified - 06/01/2007 Type I Diabetes Mellitus With Manifestations ([facility]) - 09/15/2005 Essential Hypertension - (more content not included)... [facility] 10-05-2022 Note HNO ID: [id number] Author: Davon Wolfe APRN.PATIENT RELATIONS COORDINATOR Service: ? Author Type: Nurse Practitioner Type: [...] a sore to her vaginal area. Saw case technician in the past for this, Trudy Verma. Amoxicillin and hot compresses cleared this up in the past. Onset this time was about a week ago. Started with a painful hard lump to the outside skin of the vaginal area. Tried Keflex from case technician due to concerns of medicaiton interactions with [...] by mouth once daily as needed. Insulin Mullens, Disposable, (BD ULTRA-FINE FADY PEN NEEDLE) 32 [...] Naprosyn [Naproxen] GI (more content not included)... [facility] 10-05-2022 History of Presen t [...] a sore to her vaginal area. Saw case technician in the past for this, Trudy Verma. Amoxicillin and hot compresses cleared this up in the past. Onset this time was about a week ago. Started with a painful hard lump to the outside skin of the vaginal area. Tried Keflex from case technician due to concerns of medicaiton interactions with [...] by mouth once daily as needed. Insulin Mullens, Disposable, (BD ULTRA-FINE FADY PEN NEEDLE) 32 [...] Morbid Obesity With Bmi of 45.0-49.9, Adult ([facility]) - 04/18/2017 Asthma - 05/06/2014 Vitamin D Deficiency - 08/21/2010 Charcot Foot Due to Diabetes Mellitus ([facility]) Debility - 09/30/2009 Rosacea - 09/06/2007 Insomnia, Unspecified - 06/01/2007 Type I Diabetes Mellitus With Manifestations ([facility]) - 09/15/2005 Essential Hypertension - 09/15/2005 Arthropathy [...] nursing note reviewed. Exam conducted with a automobile parker present ( present in the room, ok [...] which included preparing to see the patient, rmin-xv-yfur patient care, completing clinical documentation, obtaining and/or reviewing separately obtained history, performing a medically appropriate examination, counseling and educating the patient/family/caregiver, ordering medications, tests, or procedures, and care coordination (not separately reported). Return if symptoms worsen or fail to improve, for Keep next scheduled appointment.. RACHEL Romero documented in this encounter [facility] 10-05-2022 Miscellaneous Notes Noted. We can certainly take a look and decide on what is the best next steps for her. Patient phoned concerned the lump on labia spread to anus. Was seen in [facility] ER on 10-01 per pcp and COUNTER MOLDER recommendation for lump on labia. Reports ER [...] very concerned. Scheduled same day appt with Hospice Case Manager. documented in this encounter [facility] 10-01-2022 Miscellaneous Notes Phoned patient and [...] larger, she needs to return to her COUNTER MOLDER to address the lump getting largerSounds like developing worsening cellulitis and probably abscess--might need incision and drainage if there is an abscess. If she is failing outpatient treatment with oral meds, might need IV antibiotics. Forwarding to Trudy Verma who had been following with her. documented in this encounter [facility] 09-30-2022 Miscellaneous Notes Spoke with patient. [...] OCTAVIO REZA MD Patient calling Trudy Verma DISPENSARY CLERK had her start Cephalexin 500 mg one capsule 4 times daily on 09/27 for her valvar issue and patient said 3 hours later she was noticing her heart was lower and she was more short of breath, her SPO2 was going down. She stopped it after 3 doses. She spoke to COUNTER MOLDER and restarted medication yesterday and had same reaction 3 hours later. She was asking COUNTER MOLDER to give her Bactrim rx, Trudy said no that is not what I want you to take. She was told to notify her PCP and see what antibiotic PCP wants to put her on. Patient uses [facility] for her pharmacy. Please advise documented in this encounter [facility] 09-27-2022 Miscellaneous Notes Patient notified. Michelle Wu RN The following approved medication requests have been transmitted electronically. Requested Prescriptions Signed Prescriptions Disp Refills cephALEXin (KEFLEX) 500 mg capsule 28 capsule 0 Sig: Take 1 capsule by mouth four times daily for 7 days. Authorizing Provider: TRUDY VERMA Pharmacy Information Pharmacy Address [facility] [address] [place], [place] [id number] Cephalexin prescribed since Bactrim can raise her [...] Tierney Guajardo RN documented in this encounter [facility] 09-21-2022 Miscellaneous Notes Was addressed in [...] that she is following now. Liliana with [facility] calling to see if there is a base rate or base rate sliding scale for the Lispro insulin and Aspart insulin . Please advise. Cayla Lynne LPN documented in this encounter [facility] 09-20-2022 Note HNO ID: [id number] Author: Octavio Reza MD Service: ? Author Type: Physician Type: Progress Notes Filed: 09/20/2022 11:26 PM Note Text: This note was created using Coinsetter. Subjective Shereen Seals is a 77 year [...] by mouth once daily as needed. Insulin Mullens, Disposable, (BD ULTRA-FINE FADY PEN NEEDLE) 32 [...] of 09/21/21: 175 (more content not included)... [facility] 09-14-2022 Miscellaneous Notes Patient notified. Destinee Sims LPN ----- Message from Octavio Reza MD sent at 09/14/2022 8:42 AM EST ----- CBC within normal limits documented in this encounter [facility] 09-07-2022 Note HNO ID: [id number] Author: Octavio Reza MD Service: ? Author Type: Physician Type: Progress Notes Filed: 09/20/2022 1:53 PM Note Text: This note was created using Netheosriter. Subjective Shereen Seals is a 77 year [...] by mouth once daily as needed. Insulin Mullens, Disposable, (BD ULTRA-FINE FADY PEN NEEDLE) 32 [...] appearance. HENT: Cristopher (more content not included)... [facility] 09-07-2022 Instructions Octavio Reza MD [...] sugar or dehydration. documented in this encounter [facility] 09-07-2022 History of Presen t illness Narrative This note was created using Netheosriter. Subjective Shereen Seals is a 77 year [...] by mouth once daily as needed. Insulin Mullens, Disposable, (BD ULTRA-FINE FADY PEN NEEDLE) 32 [...] the date of the service which included fhnh-ud-jyuz patient care, completing clinical documentation, performing a medically appropriate examination, and counseling and educating the patient/family/caregiver. Octavio Reza MD documented in this encounter [facility] 09-01-2022 Miscellaneous Notes Noted Arleen Toure APRN.CNP Hubert from [facility] calling discharging patient from OT today patient has met all goals. documented in this encounter [facility] 09-01-2022 Miscellaneous Notes Rekha PT with [facility] called and is notified of providers message and instructions. She voices understanding. Parris Eckert RN Ok for [facility] plan, see below Rekha PT with [facility] called in her POC. She reports she [...] a confidential number. documented in this encounter [facility] 08-21-2022 Miscellaneous Notes Noted Hubert- OT- [facility] - reporting POC: saw patient today for OT ceci, and will see patient 1 x week for 3 weeks. documented in this encounter [facility] 08-17-2022 Instructions Octavio Reza MD - [...] at night too. documented in this encounter [facility] 08-17-2022 History of Presen t illness Narrative This note was created using Netheosriter. Subjective Shereen Seals is a 77 year old female. Patient presents with: Hospital F/U: Follow up [facility] and [place] discharge SUBJECTIVE: Shereen Seals is a 77 year old year old lady here today for follow up appointment for review of medical conditions. Discharged from [facility] after hospitalization at [facility] twice. Noted sugars have been running high since they changed her insulin at [facility]. Current probiotic causing constipation. Prefers Symbicort since [...] by mouth once daily as needed. Insulin Mullens, Disposable, (BD ULTRA-FINE FADY PEN NEEDLE) 32 [...] the date of the service which included seqw-zo-tccr patient care, completing clinical documentation, obtaining and/or reviewing separately obtained history, performing a medically appropriate examination, counseling and educating the patient/family/caregiver, and ordering medications, tests, or procedures. Octavio Reza MD documented in this encounter [facility] 2022 Miscellaneous Notes Noted, agree Charisse, a nurse with [facility] calling to update Dr. Reza that pt's called and notified [facility] that he was to give pt 2 units of insulin according to sliding scale today, however he accidentally gave pt 6 units. Charisse states she instructed to give pt 2-3 crackers with peanut butter and a small glass of orange juice and check pt's blood sugar in approximately 30 minutes. Pt is also getting ready to eat lunch. was advised to call [facility] for any further concerns. No call back needed, if PCP agreeable with instructions given to pt's . Thank you. documented in this encounter [facility] 07-29-2022 Miscellaneous Notes noted Bonnie OT from [facility] calls and states that patient requested only a one time visit. They worked on home safety and equipment recommendations. Patient is overwhelmed currently and told Bonnie that if patient thinks she needs Bonnie again in a couple of weeks she will give her a call. Darlene Mena RN documented in this encounter [facility] 07-29-2022 Miscellaneous Notes This Sw sent message back to TAMARA 07/26/22 note, in regards to SW order. [facility] has their own SW that makes home visits. This Sw believes that [facility] was looking for order for their own Sw to go and see patient. This SW does not provide home visits. documented in this encounter [facility] 07-28-2022 Miscellaneous Notes Addended by: DAVON WOLFE on: 07/28/2022 10:31 AM Modules accepted: Orders If patient agreeable can wait and discuss endocrine versus PharmD referral at her follow up next week. Okay for a referral for SW per request in prior encounter, I will put in the order. From prior message: Marilyn YING calling from [facility] to report plan of care for patient and Shelter will visit patient 3 times a week for first week, 2 times a week for 2 weeks and 1 time a week for 3 weeks. detention will work with patient on diabetes education and food education. Marilyn states that patient only takes medications when she wants to take medications. Patients blood sugars was in 400's on Tuesday, Tuesday 300's, and this morning 250. Patient is currently taking insulins they way she is supposed to to be taking them. Marilyn has been calling before each meal. [facility] faxed over updated medication list as [...] work with PharmD through [facility] instead of growth hacker. How are her sugars running? 3) Can reschedule follow up Renu calling back to check status on message below. Cayla Lynne LPN Renu, a [facility] nurse calling Dr. Reza with a couple [...] she did not see eye-to-eye with past growth hacker. Lastly, during this call, this nurse noted pt was to have appt with PCP today but pt states she was not told about this appt. Please advise Renu at [phone]. Thank you. documented in this encounter [facility] 07-28-2022 Miscellaneous Notes Patient has been [...] Cecy Brush LPN documented in this encounter [facility] 07-26-2022 Miscellaneous Notes Noted, agree David PT calling from [facility] to report plan of care for patient and physical therapy will visit patient 2 times a week for 3 weeks. Physical therapy will work with patient on functional mobility training. No Call back needed if agreeable, Darlene Mena RN documented in this encounter [facility] 07-19-2022 Miscellaneous Notes Below noted Patient [...] she gets plenty of liquids. Urine is court commissioner now. Does have a moist cough, but improved since hospital stay. No fever. BS this morning 229, which is much improved since hospital (BS ran 400's). Patient reports her fingers have been cold when taking POX reading, and will make sure they are warm before checking POX. Also has pink fingernail khmer on, and will remove from one finger [...] Please advise patient. documented in this encounter [facility] 07-16-2022 Miscellaneous Notes Reason for Call: elevated blood sugar of 304, disoriented, sob, 02 sat is 86-89% while using oxygen Outcome: Pt and her both advised to call 911 now. They both agree. Reason for Disposition Acting confused (e.g., disoriented, slurred speech) Protocols used: Diabetes - High Blood Pduzi-[id number]-GT Pt reports her blood sugar was elevated [...] call 911 now. documented in this encounter [facility] 06-21-2022 Miscellaneous Notes Last office visit: [...] patient. Payton Soliman documented in this encounter [facility] 06-07-2022 History of Presen t illness [...] Vladimir Kitchen Associated attestation - Narendra Nolasco, [facility] - 06/07/2022 3:49 PM EST The patient's [...] MEd, BCPS, CDCES documented in this encounter [facility] 06-07-2022 Miscellaneous Notes Noted, agree. Come [...] Pattie Giles RN documented in this encounter [facility] 05-18-2022 Miscellaneous Notes Ordered during appointment Pt has an appointment with provider on 05/18/22. Pt is asking if provider wanted labs ordered. Please call Pt once labs are placed. documented in this encounter [facility] 05-18-2022 History of Presen t illness Narrative This note was created using Netheosriter. Subjective Shereen Seals is a 76 year [...] Swelling overall controlled Follows with Dr. Marin (outpatient coordinator) every 2 months. Has HCDPOA and LW. [...] 1 capsule by mouth twice daily. Insulin Mullens, Disposable, (BD ULTRA-FINE FADY PEN NEEDLE) 32 [...] Octavio Reza MD documented in this encounter [facility] 04-03-2022 Miscellaneous Notes See previous TE with same request for vials. Awaiting insurance authorization to dispense. Pattie Giles RN Patient call sent from [facility] as a refill, but when speaking with patient she said her late night shots with Humalin are a nightmare and would like to go back on vials. Please address this with patient. Call sent to triage nurse after speaking with patient. documented in this encounter [facility] 04-03-2022 Miscellaneous Notes Pt calling with request for a prescription for Humalog Vials. Patient denies any new or worsening symptoms of which a provider is not aware: Yes. Conference pt to Dr. Reza's office for curriculum assistant principal with prescription. documented in this encounter [facility] 03-31-2022 Miscellaneous Notes The following approved [...] Asmita Tapia RN documented in this encounter [facility] 02-15-2022 Instructions Lydia Grande APRN.CNS - 02/15/2022 3:06 PM EDT Decrease caffeine intake. Drink plenty of fluids. Think about the CGM - continuous glucose monitor. documented in this encounter [facility] 02-15-2022 History of Presen t illness [...] Both Lower Extremities She was seen at [facility] emergency department on February 11, 2022 [...] to follow-up with PCP as needed. Sees [facility] provider, Areli Estevez. HTN: She [...] HENT: Head: Normocephalic and atraumatic. Mouth/Throat: Lips: [place]. Mouth: Mucous membranes are moist. Eyes: Conjunctiva/sclera: [...] DM Code E10.8, E11.610 Insulin: Yes Insulin Mullens, Disposable, (BD ULTRA-FINE FADY PEN NEEDLE) 32 [...] Lydia Grande APRN.MADELIN documented in this encounter [facility] 02-11-2022 Miscellaneous Notes Noted Reasonable for her to have her remote broadcast technician decide on plan of care for noted [...] Patient said she was going to call [employer] Finisher [employer]per office, Dr Lott before she would go to the ER. documented in this encounter [facility] 01-21-2022 Miscellaneous Notes Order faxed to [facility] scheduling. ok Patient calls and is asking about mammogram order. Please place order and fax to [facility]. Please review and advise, Darlene Mena RN documented in this encounter [facility] 01-11-2022 History of Presen t illness Narrative Images from the original note were not included. This note was created using YinYangMapter. Subjective Shereen Seals is a 76 year [...] Lantus, not Basaglar per patient preference Insulin Mullens, Disposable, ([employer]FINE FADY PEN NEEDLE) 32 gauge x Use [...] Octavio Reza MD documented in this encounter [facility] 12-23-2021 History of Presen t illness Narrative This note was created using Netheosriter. Subjective Patient presents with: Abdominal Pain PCP [...] Morbid Obesity With Bmi of 45.0-49.9, Adult ([facility]) Stasis Edema of Both Lower Extremities Current [...] Lantus, not Basaglar per patient preference Insulin Mullens, Disposable, (BD ULTRA-FINE FADY PEN NEEDLE) 32 [...] (FLONASE) 50 mcg/actuation nasal spray Use 1 Joes in each nostril once daily. (Patient not [...] Guillermo Maurer MD documented in this encounter [facility] 12-17-2021 Instructions Kristyn Flores - 12/17/2021 [...] increases, despite treatment. Copyright 1994 by WAlexia Kamego documented in this encounter [facility] 12-17-2021 History of Presen t illness [...] history is provided by the patient. No clinical programmer was used. Arm Pain The pain is [...] (FLONASE) 50 mcg/actuation nasal spray Use 1 Joes in each nostril once daily. blood sugar [...] Lantus, not Basaglar per patient preference Insulin Mullens, Disposable, (BD ULTRA-FINE FADY PEN NEEDLE) 32 [...] AP/LAT RIGHT Radiologist IMPRESSION: No acute process. Prepleater: EVIE Transcribe Date/Time: Dec 17 2021 1:44P Dictated by : CECY REYES MD - X-ray is negative for fracture. - Wear compression wrap and sling as needed for comfort. May remove at night. - Take Ibuprofen as needed for pain. - Follow up with orthopedics if pain worsens or persists past 3 days. - CONSULT PANEL TO ORTHOPAEDICS RENATA Prado student TEACHING PROVIDER (Physician/PA/DEPUTY CONTROLLER) NOTE OF PERSONAL INVOLVEMENT IN CARE: I have personally seen and examined the patient and performed the medical decision-making components. I have reviewed the Advanced Practice Registered Nurse (DEPUTY CONTROLLER) Student's documentation and verified the findings in the note as written. Any additions or changes are noted in bold/italics. Signature: Wanda Phillips Date: 12/17/2021 Time: 2:06 PM documented in this encounter [facility] 12-17-2021 Miscellaneous Notes noted, agree should be seen Patient calling with request for an x ray of her arm. She states she strained her upper arm when she lifted a heavy pot of water. She feels pain in the bicep area of her right arm. Advised Urgent Care evaluation. She is agreeable. Rochelle M Lentine, RN documented in this encounter [facility] 12-16-2021 History of Presen t illness [...] 2021 9:40 AM documented in this encounter [facility] 12-16-2021 Miscellaneous Notes Verified name and date of . Patient phones requesting refills as follows: Pending Prescriptions Disp Refills BUDESONIDE-FORMOTEROL HFA 160 MCG-4.5 MCG/ACTUATION AEROSOL INHALER 1 Each 5 Sig: Inhale 2 Puffs as instructed twice daily. VITALY: No Verified pharmacy to be reordered at. Please review and advise. Eleni Serrano LPN documented in this encounter [facility] 12-04-2021 Miscellaneous Notes Noted, agree should [...] will call back. documented in this encounter [facility] 11-06-2021 Miscellaneous Notes Spoke to Dr Carmichael and updated patient on results, To repeat colonoscopy in 5 years. Patient called asking for results from colonoscopy. [phone] documented in this encounter [facility] 10-29-2021 Nurse Note Abdomen soft non-distended. Will continue to monitor. [facility] PRE-OP NURSING HAND OFF NOTE SBAR Hand off given to Eris Mena RN. Hand off was communicated verbally and at the patient's bedside and all questions were answered. Amanda Santiago RN documented in this encounter [facility] 10-29-2021 History and physical note Images [...] (FLONASE) 50 mcg/actuation nasal spray Use 1 Joes in each nostril once daily. blood sugar [...] Lantus, not Basaglar per patient preference Insulin Mullens, Disposable, (BD ULTRA-FINE FADY PEN NEEDLE) 32 [...] entered by the nurse and reviewed by sc Nursing Notes: Serina Catherine RN 09/21/2021 3:38 [...] TIME: 7:53 AM documented in this encounter [facility] 10-27-2021 Miscellaneous Notes Spoke with patient [...] Rakel Agosto LPN documented in this encounter [facility] 10-27-2021 Miscellaneous Notes noted, recent BPs [...] Radha Lacy RN documented in this encounter [facility] 10-26-2021 Miscellaneous Notes Patient was notified [...] Cayla Lynne LPN documented in this encounter [facility] 10-26-2021 Miscellaneous Notes Spoke with pt [...] prior to procedure. Please advise patient. PH: [phone]. Thank you. documented in this encounter [facility] 10-22-2021 Miscellaneous Notes Patient has been [...] Asmita Tapia RN documented in this encounter [facility] 09-22-2021 Miscellaneous Notes 10-29-2021 [facility] documented in this encounter [facility] 09-11-2021 History of Presen t illness Narrative This note was created using YinYangMapter. Subjective Shereen Seals is a 76 year [...] (FLONASE) 50 mcg/actuation nasal spray Use 1 Joes in each nostril once daily. blood sugar [...] Lantus, not Basaglar per patient preference Insulin Mullens, Disposable, (BD ULTRA-FINE FADY PEN NEEDLE) 32 [...] Octavio Reza MD documented in this encounter [facility] documented as of this encounter (statuses as of 10/22/2021) [facility] History of Past illness Narrative* Problem Noted Date Resolved Date OVERWEIGHT 05/11/2021 Last Assessment & Plan: Has made dietary changes since recent hospitalization, decreased carbs, feels better, plans to work harder on wt loss. Getting 3 wheeled bike so she can go on trails, not just exercise bike indoors. documented as of this encounter (statuses as of 10/26/2021) [facility] History of Past illness Narrative* Problem Noted Date Resolved Date OVERWEIGHT 05/11/2021 Last Assessment & Plan: Has made dietary changes since recent hospitalization, decreased carbs, feels better, plans to work harder on wt loss. Getting 3 wheeled bike so she can go on trails, not just exercise bike indoors. documented as of this encounter (statuses as of 10/27/2021) [facility] History of Past illness Narrative* Problem Noted Date Resolved Date OVERWEIGHT 05/11/2021 Last Assessment & Plan: Has made dietary changes since recent hospitalization, decreased carbs, feels better, plans to work harder on wt loss. Getting 3 wheeled bike so she can go on trails, not just exercise bike indoors. documented as of this encounter (statuses as of 10/30/2021) [facility] History of Past illness Narrative* Problem Noted Date Resolved Date OVERWEIGHT 05/11/2021 Last Assessment & Plan: Has made dietary changes since recent hospitalization, decreased carbs, feels better, plans to work harder on wt loss. Getting 3 wheeled bike so she can go on trails, not just exercise bike indoors. documented as of this encounter (statuses as of 11/02/2021) [facility] History of Past illness Narrative* Problem Noted Date Resolved Date OVERWEIGHT 05/11/2021 Last Assessment & Plan: Has made dietary changes since recent hospitalization, decreased carbs, feels better, plans to work harder on wt loss. Getting 3 wheeled bike so she can go on trails, not just exercise bike indoors. documented as of this encounter (statuses as of 11/06/2021) [facility] History of Past illness Narrative* Problem Noted Date Resolved Date OVERWEIGHT 05/11/2021 Last Assessment & Plan: Has made dietary changes since recent hospitalization, decreased carbs, feels better, plans to work harder on wt loss. Getting 3 wheeled bike so she can go on trails, not just exercise bike indoors. documented as of this encounter (statuses as of 12/07/2021) [facility] History of Past illness Narrative* Problem Noted Date Resolved Date OVERWEIGHT 05/11/2021 Last Assessment & Plan: Has made dietary changes since recent hospitalization, decreased carbs, feels better, plans to work harder on wt loss. Getting 3 wheeled bike so she can go on trails, not just exercise bike indoors. documented as of this encounter (statuses as of 12/16/2021) [facility] History of Past illness Narrative* Problem Noted Date Resolved Date OVERWEIGHT 05/11/2021 Last Assessment & Plan: Has made dietary changes since recent hospitalization, decreased carbs, feels better, plans to work harder on wt loss. Getting 3 wheeled bike so she can go on trails, not just exercise bike indoors. documented as of this encounter (statuses as of 12/16/2021) [facility] History of Past illness Narrative* Problem Noted Date Resolved Date OVERWEIGHT 05/11/2021 Last Assessment & Plan: Has made dietary changes since recent hospitalization, decreased carbs, feels better, plans to work harder on wt loss. Getting 3 wheeled bike so she can go on trails, not just exercise bike indoors. documented as of this encounter (statuses as of 12/17/2021) [facility] History of Past illness Narrative* Problem Noted Date Resolved Date OVERWEIGHT 05/11/2021 Last Assessment & Plan: Has made dietary changes since recent hospitalization, decreased carbs, feels better, plans to work harder on wt loss. Getting 3 wheeled bike so she can go on trails, not just exercise bike indoors. documented as of this encounter (statuses as of 12/17/2021) [facility] History of Past illness Narrative* Problem Noted Date Resolved Date OVERWEIGHT 05/11/2021 Last Assessment & Plan: Has made dietary changes since recent hospitalization, decreased carbs, feels better, plans to work harder on wt loss. Getting 3 wheeled bike so she can go on trails, not just exercise bike indoors. documented as of this encounter (statuses as of 12/17/2021) [facility] History of Past illness Narrative* Problem Noted Date Resolved Date OVERWEIGHT 05/11/2021 Last Assessment & Plan: Has made dietary changes since recent hospitalization, decreased carbs, feels better, plans to work harder on wt loss. Getting 3 wheeled bike so she can go on trails, not just exercise bike indoors. documented as of this encounter (statuses as of 12/24/2021) [facility] History of Past illness Narrative* Problem Noted Date Resolved Date OVERWEIGHT 05/11/2021 Last Assessment & Plan: Has made dietary changes since recent hospitalization, decreased carbs, feels better, plans to work harder on wt loss. Getting 3 wheeled bike so she can go on trails, not just exercise bike indoors. documented as of this encounter (statuses as of 01/04/2022) [facility] History of Past illness Narrative* Problem Noted Date Resolved Date OVERWEIGHT 05/11/2021 Last Assessment & Plan: Has made dietary changes since recent hospitalization, decreased carbs, feels better, plans to work harder on wt loss. Getting 3 wheeled bike so she can go on trails, not just exercise bike indoors. documented as of this encounter (statuses as of 01/21/2022) [facility] History of Past illness Narrative* Problem Noted Date Resolved Date OVERWEIGHT 05/11/2021 Last Assessment & Plan: Has made dietary changes since recent hospitalization, decreased carbs, feels better, plans to work harder on wt loss. Getting 3 wheeled bike so she can go on trails, not just exercise bike indoors. documented as of this encounter (statuses as of 02/11/2022) [facility] History of Past illness Narrative* Problem Noted Date Resolved Date OVERWEIGHT 05/11/2021 Last Assessment & Plan: Has made dietary changes since recent hospitalization, decreased carbs, feels better, plans to work harder on wt loss. Getting 3 wheeled bike so she can go on trails, not just exercise bike indoors. documented as of this encounter (statuses as of 02/15/2022) [facility] History of Past illness Narrative* Problem Noted Date Resolved Date OVERWEIGHT 05/11/2021 Last Assessment & Plan: Has made dietary changes since recent hospitalization, decreased carbs, feels better, plans to work harder on wt loss. Getting 3 wheeled bike so she can go on trails, not just exercise bike indoors. documented as of this encounter (statuses as of 03/14/2022) [facility] History of Past illness Narrative* Problem Noted Date Resolved Date OVERWEIGHT 05/11/2021 Last Assessment & Plan: Has made dietary changes since recent hospitalization, decreased carbs, feels better, plans to work harder on wt loss. Getting 3 wheeled bike so she can go on trails, not just exercise bike indoors. documented as of this encounter (statuses as of 04/01/2022) [facility] History of Past illness Narrative* Problem Noted Date Resolved Date OVERWEIGHT 05/11/2021 Last Assessment & Plan: Has made dietary changes since recent hospitalization, decreased carbs, feels better, plans to work harder on wt loss. Getting 3 wheeled bike so she can go on trails, not just exercise bike indoors. documented as of this encounter (statuses as of 04/03/2022) [facility] History of Past illness Narrative* Problem Noted Date Resolved Date OVERWEIGHT 05/11/2021 Last Assessment & Plan: Has made dietary changes since recent hospitalization, decreased carbs, feels better, plans to work harder on wt loss. Getting 3 wheeled bike so she can go on trails, not just exercise bike indoors. documented as of this encounter (statuses as of 05/18/2022) [facility] History of Past illness Narrative* Problem Noted Date Resolved Date OVERWEIGHT 05/11/2021 Last Assessment & Plan: Has made dietary changes since recent hospitalization, decreased carbs, feels better, plans to work harder on wt loss. Getting 3 wheeled bike so she can go on trails, not just exercise bike indoors. documented as of this encounter (statuses as of 06/07/2022) [facility] History of Past illness Narrative* Problem Noted Date Resolved Date OVERWEIGHT 05/11/2021 Last Assessment & Plan: Has made dietary changes since recent hospitalization, decreased carbs, feels better, plans to work harder on wt loss. Getting 3 wheeled bike so she can go on trails, not just exercise bike indoors. documented as of this encounter (statuses as of 06/07/2022) [facility] History of Past illness Narrative* Problem Noted Date Resolved Date OVERWEIGHT 05/11/2021 Last Assessment & Plan: Has made dietary changes since recent hospitalization, decreased carbs, feels better, plans to work harder on wt loss. Getting 3 wheeled bike so she can go on trails, not just exercise bike indoors. documented as of this encounter (statuses as of 06/14/2022) [facility] History of Past illness Narrative* Problem Noted Date Resolved Date OVERWEIGHT 05/11/2021 Last Assessment & Plan: Has made dietary changes since recent hospitalization, decreased carbs, feels better, plans to work harder on wt loss. Getting 3 wheeled bike so she can go on trails, not just exercise bike indoors. documented as of this encounter (statuses as of 06/21/2022) [facility] History of Past illness Narrative* Problem Noted Date Resolved Date OVERWEIGHT 05/11/2021 Last Assessment & Plan: Has made dietary changes since recent hospitalization, decreased carbs, feels better, plans to work harder on wt loss. Getting 3 wheeled bike so she can go on trails, not just exercise bike indoors. documented as of this encounter (statuses as of 07/22/2022) [facility] History of Past illness Narrative* Problem Noted Date Resolved Date OVERWEIGHT 05/11/2021 Last Assessment & Plan: Has made dietary changes since recent hospitalization, decreased carbs, feels better, plans to work harder on wt loss. Getting 3 wheeled bike so she can go on trails, not just exercise bike indoors. documented as of this encounter (statuses as of 07/27/2022) [facility] History of Past illness Narrative* Problem Noted Date Resolved Date OVERWEIGHT 05/11/2021 Last Assessment & Plan: Has made dietary changes since recent hospitalization, decreased carbs, feels better, plans to work harder on wt loss. Getting 3 wheeled bike so she can go on trails, not just exercise bike indoors. documented as of this encounter (statuses as of 07/28/2022) [facility] History of Past illness Narrative* Problem Noted Date Resolved Date OVERWEIGHT 05/11/2021 Last Assessment & Plan: Has made dietary changes since recent hospitalization, decreased carbs, feels better, plans to work harder on wt loss. Getting 3 wheeled bike so she can go on trails, not just exercise bike indoors. documented as of this encounter (statuses as of 07/28/2022) [facility] History of Past illness Narrative* Problem Noted Date Resolved Date OVERWEIGHT 05/11/2021 Last Assessment & Plan: Has made dietary changes since recent hospitalization, decreased carbs, feels better, plans to work harder on wt loss. Getting 3 wheeled bike so she can go on trails, not just exercise bike indoors. documented as of this encounter (statuses as of 07/29/2022) [facility] History of Past illness Narrative* Problem Noted Date Resolved Date OVERWEIGHT 05/11/2021 Last Assessment & Plan: Has made dietary changes since recent hospitalization, decreased carbs, feels better, plans to work harder on wt loss. Getting 3 wheeled bike so she can go on trails, not just exercise bike indoors. documented as of this encounter (statuses as of 2022) [facility] History of Past illness Narrative* Problem Noted Date Resolved Date OVERWEIGHT 05/11/2021 Last Assessment & Plan: Has made dietary changes since recent hospitalization, decreased carbs, feels better, plans to work harder on wt loss. Getting 3 wheeled bike so she can go on trails, not just exercise bike indoors. documented as of this encounter (statuses as of 08/23/2022) [facility] History of Past illness Narrative* Problem Noted Date Resolved Date OVERWEIGHT 05/11/2021 Last Assessment & Plan: Has made dietary changes since recent hospitalization, decreased carbs, feels better, plans to work harder on wt loss. Getting 3 wheeled bike so she can go on trails, not just exercise bike indoors. documented as of this encounter (statuses as of 09/01/2022) [facility] of Past illness Narrative* Problem Noted Date Resolved Date OVERWEIGHT 05/11/2021 Last Assessment & Plan: Has made dietary changes since recent hospitalization, decreased carbs, feels better, plans to work harder on wt loss. Getting 3 wheeled bike so she can go on trails, not just exercise bike indoors. documented as of this encounter (statuses as of 09/02/2022) [facility] of Past illness Narrative* Problem Noted Date Resolved Date OVERWEIGHT 05/11/2021 Last Assessment & Plan: Has made dietary changes since recent hospitalization, decreased carbs, feels better, plans to work harder on wt loss. Getting 3 wheeled bike so she can go on trails, not just exercise bike indoors. documented as of this encounter (statuses as of 09/08/2022) [facility] of Past illness Narrative* Problem Noted Date Resolved Date OVERWEIGHT 05/11/2021 Last Assessment & Plan: Has made dietary changes since recent hospitalization, decreased carbs, feels better, plans to work harder on wt loss. Getting 3 wheeled bike so she can go on trails, not just exercise bike indoors. documented as of this encounter (statuses as of 09/14/2022) [facility] of Past illness Narrative* Problem Noted Date Resolved Date OVERWEIGHT 05/11/2021 Last Assessment & Plan: Has made dietary changes since recent hospitalization, decreased carbs, feels better, plans to work harder on wt loss. Getting 3 wheeled bike so she can go on trails, not just exercise bike indoors. documented as of this encounter (statuses as of 09/20/2022) [facility] History of Past illness Narrative* Problem Noted Date Resolved Date OVERWEIGHT 05/11/2021 Last Assessment & Plan: Has made dietary changes since recent hospitalization, decreased carbs, feels better, plans to work harder on wt loss. Getting 3 wheeled bike so she can go on trails, not just exercise bike indoors. documented as of this encounter (statuses as of 09/21/2022) [facility] of Past illness Narrative* Problem Noted Date Resolved Date OVERWEIGHT 05/11/2021 Last Assessment & Plan: Has made dietary changes since recent hospitalization, decreased carbs, feels better, plans to work harder on wt loss. Getting 3 wheeled bike so she can go on trails, not just exercise bike indoors. documented as of this encounter (statuses as of 09/27/2022) [facility] History of Past illness Narrative* Problem Noted Date Resolved Date OVERWEIGHT 05/11/2021 Last Assessment & Plan: Has made dietary changes since recent hospitalization, decreased carbs, feels better, plans to work harder on wt loss. Getting 3 wheeled bike so she can go on trails, not just exercise bike indoors. documented as of this encounter (statuses as of 10/01/2022) [facility] of Past illness Narrative* Problem Noted Date Resolved Date OVERWEIGHT 05/11/2021 Last Assessment & Plan: Has made dietary changes since recent hospitalization, decreased carbs, feels better, plans to work harder on wt loss. Getting 3 wheeled bike so she can go on trails, not just exercise bike indoors. documented as of this encounter (statuses as of 10/01/2022) [facility] of Past illness Narrative* Problem Noted Date Resolved Date OVERWEIGHT 05/11/2021 Last Assessment & Plan: Has made dietary changes since recent hospitalization, decreased carbs, feels better, plans to work harder on wt loss. Getting 3 wheeled bike so she can go on trails, not just exercise bike indoors. documented as of this encounter (statuses as of 10/05/2022) [facility] of Past illness Narrative* Problem Noted Date Resolved Date OVERWEIGHT 05/11/2021 Last Assessment & Plan: Has made dietary changes since recent hospitalization, decreased carbs, feels better, plans to work harder on wt loss. Getting 3 wheeled bike so she can go on trails, not just exercise bike indoors. documented as of this encounter (statuses as of 10/07/2022) [facility] History of Past illness Narrative* Problem Noted Date Diagnosed Date Resolved Date OVERWEIGHT 05/11/2021 Last Assessment & Plan: Has made dietary changes since recent hospitalization, decreased carbs, feels better, plans to work harder on wt loss. Getting 3 wheeled bike so she can go on trails, not just exercise bike indoors. documented as of this encounter (statuses as of 02/21/2023) [facility]10-25-2021 History of Past illness Narrative* Problem Noted Date Diagnosed Date Resolved Date OVERWEIGHT 05/11/2021 Last Assessment & Plan: Has made dietary changes since recent hospitalization, decreased carbs, feels better, plans to work harder on wt loss. Getting 3 wheeled bike so she can go on trails, not just exercise bike indoors. documented as of this encounter (statuses as of 02/21/2023) [facility]10-25-2021 History of Past illness Narrative* Problem Noted Date Diagnosed Date Resolved Date OVERWEIGHT 05/11/2021 Last Assessment & Plan: Has made dietary changes since recent hospitalization, decreased carbs, feels better, plans to work harder on wt loss. Getting 3 wheeled bike so she can go on trails, not just exercise bike indoors. documented as of this encounter (statuses as of 03/01/2023) [facility]10-25-2021 History of Past illness Narrative* Problem Noted Date Diagnosed Date Resolved Date OVERWEIGHT 05/11/2021 Last Assessment & Plan: Has made dietary changes since recent hospitalization, decreased carbs, feels better, plans to work harder on wt loss. Getting 3 wheeled bike so she can go on trails, not just exercise bike indoors. documented as of this encounter (statuses as of 05/16/2023) [facility]10-[facility]-2021 History of Past illness Narrative* Problem Noted Date Diagnosed Date Resolved Date OVERWEIGHT 05/11/2021 Last Assessment & Plan: Has made dietary changes since recent hospitalization, decreased carbs, feels better, plans to work harder on wt loss. Getting 3 wheeled bike so she can go on trails, not just exercise bike indoors. documented as of this encounter (statuses as of 06/15/2023) [facility]2021 History of Past illness Narrative* Problem Noted Date Diagnosed Date Resolved Date OVERWEIGHT 05/11/2021 Last Assessment & Plan: Has made dietary changes since recent hospitalization, decreased carbs, feels better, plans to work harder on wt loss. Getting 3 wheeled bike so she can go on trails, not just exercise bike indoors. documented as of this encounter (statuses as of 06/23/2023) [facility]10-[facility]21 History of Past illness Narrative* Problem Noted Date Diagnosed Date Resolved Date OVERWEIGHT 05/11/2021 Last Assessment & Plan: Has made dietary changes since recent hospitalization, decreased carbs, feels better, plans to work harder on wt loss. Getting 3 wheeled bike so she can go on trails, not just exercise bike indoors. documented as of this encounter (statuses as of 06/24/2023) [facility]10-[facility]21 History of Past illness Narrative* Problem Noted Date Diagnosed Date Resolved Date OVERWEIGHT 05/11/2021 Last Assessment & Plan: Has made dietary changes since recent hospitalization, decreased carbs, feels better, plans to work harder on wt loss. Getting 3 wheeled bike so she can go on trails, not just exercise bike indoors. documented as of this encounter (statuses as of 06/26/2023) [facility] History of Past illness Narrative* Problem Noted Date Diagnosed Date Resolved Date OVERWEIGHT 05/11/2021 Last Assessment & Plan: Has made dietary changes since recent hospitalization, decreased carbs, feels better, plans to work harder on wt loss. Getting 3 wheeled bike so she can go on trails, not just exercise bike indoors. documented as of this encounter (statuses as of 09/01/2023) [facility] History of Past illness Narrative* Problem Noted Date Diagnosed Date Resolved Date OVERWEIGHT 05/11/2021 Last Assessment & Plan: Has made dietary changes since recent hospitalization, decreased carbs, feels better, plans to work harder on wt loss. Getting 3 wheeled bike so she can go on trails, not just exercise bike indoors. documented as of this encounter (statuses as of 09/05/2023) [facility] Screening for colon cancer Special screening for malignant neoplasms, colon [facility] Screening for colon cancer- Primary Special screening for malignant neoplasms, colon [facility]* Diagnosis Type I diabetes mellitus [...] malignant neoplasms, colon [facility]* Diagnosis Chest pain, unspecified type- Primary [facility] Diagnosis Chest pain, unspecified type [facility] Diagnosis Pain of right upper extremity- Primary [facility] Diagnosis Pain of upper abdomen- Primary Abdominal pain, other specified site Alternating constipation and diarrhea Other symptoms involving digestive system [facility]* Diagnosis Breast cancer screening by mammogram- Primary Dense breasts Inconclusive mammogram [facility] [place] [facility] Diagnosis Palpitations- Primary Encounter for immunization Need for other specified prophylactic vaccination against single bacterial disease 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 Diagnosis Type I diabetes mellitus [...] single bacterial disease 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 Diagnosis Cellulitis of female genitalia Unspecified inflammatory disease of cervix, vagina, and vulva [facility] [place] [facility]* Diagnosis Labial abscess- Primary Other abscess of vulva Bradycardia Other specified cardiac dysrhythmias [facility] Diagnosis Psoriasis of scalp- Primary Other psoriasis Seborrheic dermatitis Seborrheic dermatitis, unspecified Essential hypertension Unspecified essential hypertension Palpitations History of delirium Personal history of other mental disorder documented in this encounter [facility] note* Diagnosis Screening mammogram for breast cancer- Primary documented in this encounter [facility] note* Diagnosis Palpitations documented in this encounter [facility] note* Diagnosis Paroxysmal SVT (supraventricular tachycardia)- Primary Paroxysmal supraventricular tachycardia Palpitations documented in this encounter [facility] note* Diagnosis Severe persistent asthma without complication documented in this encounter [facility] note* Diagnosis Severe persistent asthma without complication- Primary Obesity, Class III, BMI 40-49.9 (morbid obesity) (HCC) Morbid obesity documented in this encounter [facility] note* Diagnosis Type I diabetes mellitus [...] single bacterial disease documented in this encounter [facility] note* Diagnosis Polyarthralgia- Primary Pain in joint, multiple sites 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, not stated as uncontrolled Vitamin D deficiency Unspecified vitamin D deficiency Pain in finger of both hands documented in this encounter [facility] note* Diagnosis Polyarthralgia- Primary Pain in joint, multiple sites Pain in finger of both hands Elevated C-reactive protein (CRP) Elevated sedimentation rate documented in this encounter [facility] for referral (narrative)* Outpatient Procedure (Routine) - Closed Specialty Diagnoses / Procedures Referred By Belgica jalloh Referred To Contact [facility] Diagnoses Screening for colon cancer Procedures COLONOSCOPY SCREENING COLONOSCOPY FLX DX W/COLLJ SPEC WHEN PFRMD Holland Carmichael MD [address] [place] [address] [facility] [place] [address] [place] [address] Referral ID Status Reason Start Date Expiration Date V isits Requested Visits Authorized [id number] Closed Auto-Generate d Referral 09/22/2021 09/22/2022 1 1 [facility] for referral (narrative)* Outpatient Procedure (Routine) - Closed Specialty Diagnoses / Procedures Referred By Contac t Referred To Contact [facility] Diagnoses Screening for colon cancer Procedures COLONOSCOPY SCREENING COLONOSCOPY FLX DX W/COLLJ SPEC WHEN Holland Mercado MD [address] [place] [address] [facility] [address] [address] Referral ID Status Reason Start Date Expiration Date V isits Requested Visits Authorized [id number] Closed Auto-Generate d Referral 09/22/2021 09/22/2022 1 1 [facility] for referral (narrative)* Diagnostic Procedure Only (Routine) - Pending Review Specialty Diagnoses / Procedures Referred By Contac t Referred To Contact [facility] Diagnoses Breast cancer screening by mammogram Dense breasts Procedures KELLY SCREENING W MINAL SCREENING DIGITAL BREAST TOMOSYNTHESIS BI SCREENING MAMMOGRAPHY BI 2-VIEW BREAST INC CAD Lydia Grande, DEPUTY CONTROLLER.TACTICAL DEBRIEFER [address] [place] [address] [facility] [address] [place] [address] Referral ID Status Reason Start Date Expiration Date Visits Requested Visits Authorized [id number] Pending Review Auto-Generat ed Referral 01/21/2022 02/19/2023 1 1 T [facility] for referral (narrative)* Diagnostic Procedure Only (Routine) - Pending Review Specialty Diagnoses / Procedures Referred By Contac t Referred To Contact [facility] Diagnoses Screening mammogram for breast cancer Procedures KELLY SCREENING W MINAL SCREENING DIGITAL BREAST TOMOSYNTHESIS BI SCREENING MAMMOGRAPHY BI 2-VIEW BREAST INC CAD Octavio Reza MD [address] [place] [address] [facility] [address] [place] [address] Referral ID Status Reason Start Date Expiration Date Visits Requested Visits Authorized [id number] Pending Review Auto-Generat ed Referral 02/21/2023 03/22/2024 1 1 [facility] for referral (narrative)* Outpatient Procedure (Routine) - Closed Specialty Diagnoses / Procedures Referred By Contac t Referred To [facility] Diagnoses Severe persistent asthma without complication Procedures NITRIC OXIDE, EXHALED NITRIC OXIDE GAS DETERMINATION Tierney Helm PA-C [address] [facility] [place] [address] [address] Referral ID Status Reason Start Date Expiration Date V isits Requested Visits Authorized [id number] Closed Auto-Generate d Referral 06/23/2023 07/22/2024 1 1 * Outpatient Procedure (Routine) - Closed Specialty Diagnoses / Procedures Referred By Contac t Referred To [facility] Diagnoses Severe persistent asthma without complication Procedures SPIROMETRY BASELINE ONLY SPMTRY W/VC EXPIRATORY MYRON W/WO MXML VOL VNTJ Tierney Helm PA-C [address] [facility] [place] [place] [address] [facility] [address] [place] [address] Referral ID Status Reason Start Date Expiration Date V isits Requested Visits Authorized [id number] Closed Auto-Generate d Referral 06/23/2023 07/17/2023 1 1 * Outpatient Procedure (Routine) - Closed Specialty Diagnoses / Procedures Referred By Contac t Referred To [facility] Diagnoses Severe persistent asthma without complication Procedures OXIMETRY WITH AMBULATION NONINVASIVE EAR/PULSE OXIMETRY MULTIPLE Tierney Huber PA-C [address] [place] [place] [address] [facility] [place] [address] [place] [id number] Referral ID Status Reason Start Date Expiration Date V isits Requested Visits Authorized [id number] Closed Auto-Generate d Referral 06/23/2023 07/17/2023 1 1 [facility] for visit Narrative* Outpatient Procedure (Routine) - Closed Specialty Diagnoses / Procedures Referred By Belgica t Referred To Contact [facility] Diagnoses Screening for colon cancer Procedures COLONOSCOPY SCREENING COLONOSCOPY FLX DX W/COLLJ SPEC WHEN Holland Mercado MD [address] [facility] [place] [address] [facility] [address] [address] Referral ID Status Reason Start Date Expiration Date V isits Requested Visits Authorized [id number] Closed Auto-Generate d Referral 09/22/2021 09/22/2022 [address] 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 Advance Directive(s) 10/29/2021 7:15 AM [...] screening Procedures CONSULT TO GENERAL SURGERY OFFICE/OUTPATIENT [facility] 60-74 MINUTES Octavio Reza MD [address] [place] [phone] Holland Carmichael MD [address] [place] [phone] Referral ID Status Reason Start Date Expiration Date Visits Requested Visits Authorized [id number] Pending Review PCP Requested Referral 09/11/2021 09/11/2022 1 1 Specialty Diagnoses / Procedures Referred By Contac t Referred To Contact Orthopedics Diagnoses Pain of right upper extremity Procedures CONSULT PANEL TO ORTHOPAEDICS OFFICE/OUTPATIENT [facility] 60-74 MINUTES Wanda Phillips APRN.PATIENT RELATIONS COORDINATOR [address] [place] [address] Referral ID Status Reason Start Date Expiration Date Visits Requested Visits Authorized [id number] Pending Review PCP Requested Referral 12/17/2021 12/17/2022 1 1 Specialty Diagnoses / Procedures Referred By Contac t Referred To Contact [facility] Diagnoses Pain of right upper extremity Procedures XR HUMERUS 2V AP/LAT RIGHT RADEX HUMERUS MINIMUM 2 VIEWS Wanda Phillips APRN.PATIENT RELATIONS COORDINATOR [address] [place] [address] [facility] Referral ID Status Reason Start Date Expiration Date V isits Requested Visits Authorized [id number] Closed Auto-Generate d Referral 12/17/2021 01/16/2023 1 1 Referral ID Status Reason Start Date Expiration Date V isits Requested Visits Authorized [id number] Closed Auto-Generate d Referral 12/17/2021 01/16/2023 1 1 Specialty Diagnoses / Procedures Referred By Contac t Referred To Contact Octavio Reza MD [address] [place] [address] Referral ID Status Reason Start Date Expiration Date Visits Re quested Visits Authorized [id number] Closed 1 1 Referral ID Status Reason Start Date Expiration Date Visits Re quested Visits Authorized [id number] Closed 1 1 Specialty Diagnoses / Procedures Referred By Contac t Referred To Contact Rheumatology Diagnoses Polyarthralgia Pain in finger of both hands Elevated C-reactive protein (CRP) Elevated sedimentation rate Procedures CONSULT TO RHEUM/IMMUN DISEASE OFFICE/OUTPATIENT [facility] 60 MINUTES Lydia Grande APRN.MADELIN [address] [place] [address] Referral ID Status Reason Start Date Expiration Date Visits Requested Visits Authorized [id number] Authorized PCP Requested Referral 09/05/2023 09/04/2024 1 [...] or prosecute any alcohol or drug abuse patient.[facility] the event this information is protected by the Federal Confidentiality of Alcohol and Drug Abuse Patient Records regulations: The Federal rules restrict any use of the information to criminally investigate or prosecute any alcohol or drug abuse patient.[facility] the event this information is protected by the Federal Confidentiality of Alcohol and Drug Abuse Patient Records regulations: The Federal rules restrict any use of the information to criminally investigate or prosecute any alcohol or drug abuse patient.[facility] the event this information is protected by the Federal Confidentiality of Alcohol and Drug Abuse Patient Records regulations: The Federal rules restrict any use of the information to criminally investigate or prosecute any alcohol or drug abuse patient.[facility] the event this information is protected by the Federal Confidentiality of Alcohol and Drug Abuse Patient Records regulations: The Federal rules restrict any use of the information to criminally investigate or prosecute any alcohol or drug abuse patient.[facility] the event this information is protected by the Federal Confidentiality of Alcohol and Drug Abuse Patient Records regulations: The Federal rules restrict any use of the information to criminally investigate or prosecute any alcohol or drug abuse patient.[facility] the event this information is protected by the Federal Confidentiality of Alcohol and Drug Abuse Patient Records regulations: The Federal rules restrict any use of the information to criminally investigate or prosecute any alcohol or drug abuse patient.[facility] the event this information is protected by the Federal Confidentiality of Alcohol and Drug Abuse Patient Records regulations: The Federal rules restrict any use of the information to criminally investigate or prosecute any alcohol or drug abuse patient.[facility] the event this information is protected by the Federal Confidentiality of Alcohol and Drug Abuse Patient Records regulations: The Federal rules restrict any use of the information to criminally investigate or prosecute any alcohol or drug abuse patient.[facility] the event this information is protected by the Federal Confidentiality of Alcohol and Drug Abuse Patient Records regulations: The Federal rules restrict any use of the information to criminally investigate or prosecute any alcohol or drug abuse patient.[facility] the event this information is protected by the Federal Confidentiality of Alcohol and Drug Abuse Patient Records regulations: The Federal rules restrict any use of the information to criminally investigate or prosecute any alcohol or drug abuse patient.[facility] the event this information is protected by the Federal Confidentiality of Alcohol and Drug Abuse Patient Records regulations: The Federal rules restrict any use of the information to criminally investigate or prosecute any alcohol or drug abuse patient.[facility] the event this information is protected by the Federal Confidentiality of Alcohol and Drug Abuse Patient Records regulations: The Federal rules restrict any use of the information to criminally investigate or prosecute any alcohol or drug abuse patient.[facility] the event this information is protected by the Federal Confidentiality of Alcohol and Drug Abuse Patient Records regulations: The Federal rules restrict any use of the information to criminally investigate or prosecute any alcohol or drug abuse patient.[facility] the event this information is protected by the Federal Confidentiality of Alcohol and Drug Abuse Patient Records regulations: The Federal rules restrict any use of the information to criminally investigate or prosecute any alcohol or drug abuse patient.[facility] the event this information is protected by the Federal Confidentiality of Alcohol and Drug Abuse Patient Records regulations: The Federal rules restrict any use of the information to criminally investigate or prosecute any alcohol or drug abuse patient.[facility] the event this information is protected by the Federal Confidentiality of Alcohol and Drug Abuse Patient Records regulations: The Federal rules restrict any use of the information to criminally investigate or prosecute any alcohol or drug abuse patient.[facility] the event this information is protected by the Federal Confidentiality of Alcohol and Drug Abuse Patient Records regulations: The Federal rules restrict any use of the information to criminally investigate or prosecute any alcohol or drug abuse patient.[facility] the event this information is protected by the Federal Confidentiality of Alcohol and Drug Abuse Patient Records regulations: The Federal rules restrict any use of the information to criminally investigate or prosecute any alcohol or drug abuse patient.[facility] the event this information is protected by the Federal Confidentiality of Alcohol and Drug Abuse Patient Records regulations: The Federal rules restrict any use of the information to criminally investigate or prosecute any alcohol or drug abuse patient.[facility] the event this information is protected by the Federal Confidentiality of Alcohol and Drug Abuse Patient Records regulations: The Federal rules restrict any use of the information to criminally investigate or prosecute any alcohol or drug abuse patient.[facility] the event this information is protected by the Federal Confidentiality of Alcohol and Drug Abuse Patient Records regulations: The Federal rules restrict any use of the information to criminally investigate or prosecute any alcohol or drug abuse patient.[facility] the event this information is protected by the Federal Confidentiality of Alcohol and Drug Abuse Patient Records regulations: The Federal rules restrict any use of the information to criminally investigate or prosecute any alcohol or drug abuse patient.[facility] the event this information is protected by the Federal Confidentiality of Alcohol and Drug Abuse Patient Records regulations: The Federal rules restrict any use of the information to criminally investigate or prosecute any alcohol or drug abuse patient.[facility] the event this information is protected by the Federal Confidentiality of Alcohol and Drug Abuse Patient Records regulations: The Federal rules restrict any use of the information to criminally investigate or prosecute any alcohol or drug abuse patient.[facility] the event this information is protected by the Federal Confidentiality of Alcohol and Drug Abuse Patient Records regulations: The Federal rules restrict any use of the information to criminally investigate or prosecute any alcohol or drug abuse patient.[facility] HospitalIn the event this information is protected by the Federal Confidentiality of Alcohol and Drug Abuse Patient Records regulations: The Federal rules restrict any use of the information to criminally investigate or prosecute any alcohol or drug abuse patient.[facility] HospitalIn the event this information is protected by the Federal Confidentiality of Alcohol and Drug Abuse Patient Records regulations: The Federal rules restrict any use of the information to criminally investigate or prosecute any alcohol or drug abuse patient.[facility] HospitalIn the event this information is protected by the Federal Confidentiality of Alcohol and Drug Abuse Patient Records regulations: The Federal rules restrict any use of the information to criminally investigate or prosecute any alcohol or drug abuse patient.[facility] HospitalIn the event this information is protected by the Federal Confidentiality of Alcohol and Drug Abuse Patient Records regulations: The Federal rules restrict any use of the information to criminally investigate or prosecute any alcohol or drug abuse patient.[facility] HospitalIn the event this information is protected by the Federal Confidentiality of Alcohol and Drug Abuse Patient Records regulations: The Federal rules restrict any use of the information to criminally investigate or prosecute any alcohol or drug abuse patient.[facility] HospitalIn the event this information is protected by the Federal Confidentiality of Alcohol and Drug Abuse Patient Records regulations: The Federal rules restrict any use of the information to criminally investigate or prosecute any alcohol or drug abuse patient.[facility] HospitalIn the event this information is protected by the Federal Confidentiality of Alcohol and Drug Abuse Patient Records regulations: The Federal rules restrict any use of the information to criminally investigate or prosecute any alcohol or drug abuse patient.[facility] HospitalIn the event this information is protected by the Federal Confidentiality of Alcohol and Drug Abuse Patient Records regulations: The Federal rules restrict any use of the information to criminally investigate or prosecute any alcohol or drug abuse patient.[facility] HospitalIn the event this information is protected by the Federal Confidentiality of Alcohol and Drug Abuse Patient Records regulations: The Federal rules restrict any use of the information to criminally investigate or prosecute any alcohol or drug abuse patient.[facility] HospitalIn the event this information is protected by the Federal Confidentiality of Alcohol and Drug Abuse Patient Records regulations: The Federal rules restrict any use of the information to criminally investigate or prosecute any alcohol or drug abuse patient.[facility] HospitalIn the event this information is protected by the Federal Confidentiality of Alcohol and Drug Abuse Patient Records regulations: The Federal rules restrict any use of the information to criminally investigate or prosecute any alcohol or drug abuse patient.[facility] HospitalIn the event this information is protected by the Federal Confidentiality of Alcohol and Drug Abuse Patient Records regulations: The Federal rules restrict any use of the information to criminally investigate or prosecute any alcohol or drug abuse patient.[facility] HospitalIn the event this information is protected by the Federal Confidentiality of Alcohol and Drug Abuse Patient Records regulations: The Federal rules restrict any use of the information to criminally investigate or prosecute any alcohol or drug abuse patient.[facility] HospitalIn the event this information is protected by the Federal Confidentiality of Alcohol and Drug Abuse Patient Records regulations: The Federal rules restrict any use of the information to criminally investigate or prosecute any alcohol or drug abuse patient.[facility] HospitalIn the event this information is protected by the Federal Confidentiality of Alcohol and Drug Abuse Patient Records regulations: The Federal rules restrict any use of the information to criminally investigate or prosecute any alcohol or drug abuse patient.[facility] HospitalIn the event this information is protected by the Federal Confidentiality of Alcohol and Drug Abuse Patient Records regulations: The Federal rules restrict any use of the information to criminally investigate or prosecute any alcohol or drug abuse patient.[facility] HospitalIn the event this information is protected by the Federal Confidentiality of Alcohol and Drug Abuse Patient Records regulations: The Federal rules restrict any use of the information to criminally investigate or prosecute any alcohol or drug abuse patient.[facility] HospitalIn the event this information is protected by the Federal Confidentiality of Alcohol and Drug Abuse Patient Records regulations: The Federal rules restrict any use of the information to criminally investigate or prosecute any alcohol or drug abuse patient.[facility] HospitalIn the event this information is protected by the Federal Confidentiality of Alcohol and Drug Abuse Patient Records regulations: The Federal rules restrict any use of the information to criminally investigate or prosecute any alcohol or drug abuse patient.[facility] HospitalIn the event this information is protected by the Federal Confidentiality of Alcohol and Drug Abuse Patient Records regulations: The Federal rules restrict any use of the information to criminally investigate or prosecute any alcohol or drug abuse patient.[facility] HospitalIn the event this information is protected by the Federal Confidentiality of Alcohol and Drug Abuse Patient Records regulations: The Federal rules restrict any use of the information to criminally investigate or prosecute any alcohol or drug abuse patient.[facility] HospitalIn the event this information is protected by the Federal Confidentiality of Alcohol and Drug Abuse Patient Records regulations: The Federal rules restrict any use of the information to criminally investigate or prosecute any alcohol or drug abuse patient.[facility] HospitalIn the event this information is protected by the Federal Confidentiality of Alcohol and Drug Abuse Patient Records regulations: The Federal rules restrict any use of the information to criminally investigate or prosecute any alcohol or drug abuse patient.[facility] HospitalIn the event this information is protected by the Federal Confidentiality of Alcohol and Drug Abuse Patient Records regulations: The Federal rules restrict any use of the information to criminally investigate or prosecute any alcohol or drug abuse patient.[facility] HospitalIn the event this information is protected by the Federal Confidentiality of Alcohol and Drug Abuse Patient Records regulations: The Federal rules restrict any use of the information to criminally investigate or prosecute any alcohol or drug abuse patient.[facility] HospitalIn the event this information is protected by the Federal Confidentiality of Alcohol and Drug Abuse Patient Records regulations: The Federal rules restrict any use of the information to criminally investigate or prosecute any alcohol or drug abuse patient.[facility] HospitalIn the event this information is protected by the Federal Confidentiality of Alcohol and Drug Abuse Patient Records regulations: The Federal rules restrict any use of the information to criminally investigate or prosecute any alcohol or drug abuse patient.[facility] HospitalIn the event this information is protected by the Federal Confidentiality of Alcohol and Drug Abuse Patient Records regulations: The Federal rules restrict any use of the information to criminally investigate or prosecute any alcohol or drug abuse patient.[facility] HospitalIn the event this information is protected by the Federal Confidentiality of Alcohol and Drug Abuse Patient Records regulations: The Federal rules restrict any use of the information to criminally investigate or prosecute any alcohol or drug abuse patient.[facility] HospitalIn the event this information is protected by the Federal Confidentiality of Alcohol and Drug Abuse Patient Records regulations: The Federal rules restrict any use of the information to criminally investigate or prosecute any alcohol or drug abuse patient.[facility] HospitalIn the event this information is protected by the Federal Confidentiality of Alcohol and Drug Abuse Patient Records regulations: The Federal rules restrict any use of the information to criminally investigate or prosecute any alcohol or drug abuse patient.[facility] HospitalIn the event this information is protected by the Federal Confidentiality of Alcohol and Drug Abuse Patient Records regulations: The Federal rules restrict any use of the information to criminally investigate or prosecute any alcohol or drug abuse patient.[facility] HospitalIn the event this information is protected by the Federal Confidentiality of Alcohol and Drug Abuse Patient Records regulations: The Federal rules restrict any use of the information to criminally investigate or prosecute any alcohol or drug abuse patient.[facility] Reason for Visit (unrecogniz ed section [...] OT Reason Comments Hospital F/U Follow up [facility] and Av enue discharge Reason Comments Results Reason Comments Established Patient Reason Comments [facility] - medication question Reason Comments Vulvar problem Reason Comments Same Day Appointment lump in anus area x 1 week txd with antibiotics Reason Comments Lump on anus Reason Comments Follow Up 4 month Reason Comments patient asking for 3 D mamm order fax to [facility] Reason Comments Refill Request Reason Comments New Patient Palpitations Specialty Diagnoses / Procedures Referred By Contac t Referred To Contact Cardiology Diagnoses Palpitations Paroxysmal SVT (supraventricular tachycardia) Procedures CONSULT TO CARDIOLOGY OFFICE/OUTPATIENT NEW HIGH MDM 60-74 MINUTES Davon Wolfe APRN.PATIENT RELATIONS COORDINATOR [address] [place] [address] Referral ID Status Reason Start Date Expiration Date Visits Requested Visits Authorized [id number] Pending Review PCP Requested Referral 11/12/2022 11/12/2023 1 1 Reason Onset Date Comments Refill Request 06/14/2023 Reason Comments Spirometry Specialty Diagnoses / Procedures Referred By Contac t Referred [facility] Diagnoses Severe persistent asthma without complication Procedures OXIMETRY WITH AMBULATION NONINVASIVE EAR/PULSE OXIMETRY MULTIPLE DETER Tierney Helm PA-C [address] [place] [address] [facility] [address] [place] [address] Referral ID Status Reason Start Date Expiration Date V isits Requested Visits Authorized [id number] Closed Auto-Generate d Referral 06/23/2023 07/17/2023 1 1 Specialty Diagnoses / Procedures Referred By Contac t Referred To Contact [facility] Diagnoses Severe persistent asthma without complication Procedures NITRIC OXIDE, EXHALED NITRIC OXIDE GAS DETERMINATION Tierney Helm PA-C [address] [place] [address] [facility] [address] [place] [address] Referral ID Status Reason Start Date Expiration Date V isits Requested Visits Authorized [id number] Closed Auto-Generate d Referral 06/23/2023 07/22/2024 1 1 Reason Comments Established Patient Reason Comments F/U 4 month Labs prior Reason Comments Pain All over pain. Reason Comments Results Care Teams (unrecognized sec tion and content) Professional Nursing Tutor Relationship Specialty Start Date End Date Octavio Reza MD [address] [place] [id number] PCP - General Internal Medicine 08/24/10 Professional Nursing Tutor Relationship Specialty Start Date End Date Octavio Reza MD [address] [place] [id number] PCP - General Internal Medicine 08/24/10 Professional Nursing Tutor Relationship Specialty Start Date End Date Octavio Reza MD [address] [place] [id number] PCP - General Internal Medicine 08/24/10 Professional Nursing Tutor Relationship Specialty Start Date End Date Octavio Reza MD [address] [place] [id number] PCP - General Internal Medicine 08/24/10 Professional Nursing Tutor Relationship Specialty Start Date End Date Octavio Reza MD [address] [place] [id number] PCP - General Internal Medicine 08/24/10 Professional Nursing Tutor Relationship Specialty Start Date End Date Octavio Reza MD [address] [place] [address], [place] [address] PCP - General Internal Medicine 08/24/10 Professional Nursing Tutor Relationship Specialty Start Date End Date Octavio Reza MD [address] [place] [address], [place] [address] PCP - General Internal Medicine 08/24/10 Professional Nursing Tutor Relationship Specialty Start Date End Date Octavio Reza MD [address] [place] [address], [place] [address] PCP - General Internal Medicine 08/24/10 Professional Nursing Tutor Relationship Specialty Start Date End Date Octavio Reza MD [address] [place] [address], [place] [address] PCP - General Internal Medicine 08/24/10 Professional Nursing Tutor Relationship Specialty Start Date End Date Octavio Reza MD [address] [place] [address], [place] [address] PCP - General Internal Medicine 08/24/10 Professional Nursing Tutor Relationship Specialty Start Date End Date Octavio Reza MD [address] [place] [address], [place] [address] PCP - General Internal Medicine 08/24/10 Professional Nursing Tutor Relationship Specialty Start Date End Date Octavio Reza MD [address] [place] [address], [place] [address] PCP - General Internal Medicine 08/24/10 Professional Nursing Tutor Relationship Specialty Start Date End Date Octavio Reza MD [address] [place] [address], [place] [address] PCP - General Internal Medicine 08/24/10 Professional Nursing Tutor Relationship Specialty Start Date End Date Octavio Reza MD [address] [place] [address], [place] [address] PCP - General Internal Medicine 08/24/10 Professional Nursing Tutor Relationship Specialty Start Date End Date Octavio Reza MD [address] [place] [address], [place] [address] PCP - General Internal Medicine 08/24/10 Professional Nursing Tutor Relationship Specialty Start Date End Date Octavio Reza MD [address] [place] [address], [place] [address] PCP - General Internal Medicine 08/24/10 Professional Nursing Tutor Relationship Specialty Start Date End Date Octavio Reza MD [address] [place] [address], [place] [address] PCP - General Internal Medicine 08/24/10 Professional Nursing Tutor Relationship Specialty Start Date End Date Octavio Reza MD [address] [place] [address], [place] [address] PCP - General Internal Medicine 08/24/10 Professional Nursing Tutor Relationship Specialty Start Date End Date Octavio Reza MD [address] [place] [address], [place] [address] PCP - General Internal Medicine 08/24/10 Professional Nursing Tutor Relationship Specialty Start Date End Date Octavio Reza MD [address] [place] [address], [place] [address] PCP - General Internal Medicine 08/24/10 Professional Nursing Tutor Relationship Specialty Start Date End Date Octavio Reza MD [address] [place] [address], [place] [address] PCP - General Internal Medicine 08/24/10 Professional Nursing Tutor Relationship Specialty Start Date End Date Octavio Reza MD [address] [place] [address], [place] [address] PCP - General Internal Medicine 08/24/10 Professional Nursing Tutor Relationship Specialty Start Date End Date Octavio Reza MD [address] [place] [address] PCP - General Internal Medicine 08/24/10 Professional Nursing Tutor Relationship Specialty Start Date End Date Octavio Reza MD [address] [place] [address] PCP - General Internal Medicine 08/24/10 Professional Nursing Tutor Relationship Specialty Start Date End Date Octavio Reza MD [address] [place] [address] PCP - General Internal Medicine 08/24/10 Professional Nursing Tutor Relationship Specialty Start Date End Date Octavio Reza MD [address] [place] [address] PCP - General Internal Medicine 08/24/10 Professional Nursing Tutor Relationship Specialty Start Date End Date Octavio Reza MD [address] [place] [address] PCP - General Internal Medicine 08/24/10 Professional Nursing Tutor Relationship Specialty Start Date End Date Octavio Reza MD [address] [facility] [place] [address] PCP - General Internal Medicine 08/24/10 Professional Nursing Tutor Relationship Specialty Start Date End Date Octavio Reza MD [address] [place] [address] PCP - General Internal Medicine 08/24/10 Professional Nursing Tutor Relationship Specialty Start Date End Date Octavio Reza MD [address] [place] [address] PCP - General Internal Medicine 08/24/10 Professional Nursing Tutor Relationship Specialty Start Date End Date Octavio Reza MD [address] [facility] [place] [id number] PCP - General Internal Medicine 08/24/10 Professional Nursing Tutor Relationship Specialty Start Date End Date Octavio Reza MD [address] [place], [place] [address] PCP - General Internal Medicine 08/24/10 Professional Nursing Tutor Relationship Specialty Start Date End Date Octavio Reza MD [address] [place], [place] [id number] PCP - General Internal Medicine 08/24/10 INFORMATION [...] BE BASED ON THE PRIMARY CLINICAL RECORDS. [employer] [facility]. provides no warranty or guarantee of the accuracy or completeness of information in this document.
[2023-09-21 01:02] LABS: Absolute Lymphocyte Count 1.12 X10^3/uL (0.83-4.51); Absolute Neutrophil Count 4.2 X10^3/uL (2.0-7.7); Basophil# 0.02 X10^3/uL; Basophil% 0.3 % (0-1); Eosinophil# 0.36 X10^3/uL; Eosinophils% 5.8 % (0-5); Hematocrit 38.8 % (37-47); Hemoglobin 12.5 g/dL (12.0-15.0); Lymphocyte # 1.12 X10^3/ul (0.83-4.51); Lymphocyte % 17.9 % (19-41); Mean Corp Hgb Conc 32.2 g/dL (32-36); Mean Corpuscular Hgb 28.4 pg (27.0-32.0); Mean Corpuscular Volume 88.2 fL (81-99); Mean Platelet Vol. 11.8 fl (6.2-12.0); Monocyte# 0.52 X10^3/uL; Monocyte% 8.3 % (0-10); NRBC Flagged by Analyzer 0 % (0-5); Neutrophil # 4.23 X10^3/uL (2.7-7.7); Neutrophil % 67.5 % (47-70); Platelet Count 209 K/mm3 (150-450); RBC Distribution Width CV 12.6 % (11.6-14.6); RBC Distribution Width SD 40.6 fl (35.1-43.9); White Blood Count 6.3 K/mm3 (4.4-11.0)
[2023-09-21 01:03] VITALS: BP 154/66; PULSE 62; RESP 18; O2SAT 96
[2023-09-21 01:20] LABS: Anion Gap 3 (5-15); BUN 16 mg/dL (7-18); Chloride 107 mmol/L (98-107); EST Glomerular Filtration Rate 57 mL/min (>60); Est Glom Filt Rate - Afr Amer 69 mL/min (>60); Estimated Creatinine Clearance 74.72 ml/min; Glucose 148 mg/dL (74-106); Potassium 3.8 mmol/L (3.5-5.1); Sodium Level 139 mmol/L (136-145); Troponin-I HS (w/2H Reflex) 10 pg/mL (3.0-54.0)
[2023-09-21 03:00] VITALS: RESP 18
[2023-09-21 03:00] LABS: Reflex Troponin-HS? (from REC) Y
[2023-09-21 03:33] LABS: Troponin-I HS 10 pg/mL (3.0-54.0)
[2023-09-21 03:44] VITALS: BP 120/79; PULSE 64; RESP 13; TEMP 36.5; O2SAT 97
== END 2023-09-21 03:48 | disposition home or self-care (01) ==
PROVIDERS: Emergency Provider Emergency Medicine; PCP Internal Medicine; Visit Provider Emergency Medicine
DX: R00.2 Palpitations (principal); E11.9 Type 2 diabetes mellitus without complications; I47.10 Supraventricular tachycardia, unspecified; I49.1 Atrial premature depolarization; G47.33 Obstructive sleep apnea (adult) (pediatric); Z87.891 Personal history of nicotine dependence; Z86.718 Personal history of other venous thrombosis and embolism
CPT/HCPCS: 71045; 80048; 84484; 85025; 93005; 99284; A4216

== ENCOUNTER 2023-10-01 14:32 | Emergency (ER) | payer MEDICARE, SELFPAY ==
[2023-10-01 14:33] VITALS: BP 161/62; PULSE 67; RESP 22; TEMP 37.4; O2SAT 95
[2023-10-01 14:35] VITALS: BMI 49.8
--- NOTE | 2023-10-01 14:39 | RAD_ITS ---
STUDY: X-RAY CHEST REASON FOR EXAM: Female, 78 years old. Cough. TECHNIQUE: Frontal and lateral views of the chest COMPARISON: 09/21/2023 FINDINGS: The lungs are clear. There are no pleural effusions. There is no pneumothorax. The heart is normal in size. The visualized osseous structures are within normal limits. RAD/Chest PA and Lateral IMPRESSION: No acute thoracic pathology. Electronically Signed: Thomas Cardenas MD at 15:58 EDT ,
--- NOTE | 2023-10-01 14:51 | EDS_ITS ---
HPI <ALEN Diamond - Last Filed: 10/01/23 16:26> History of Present Illness Chief Complaint: Shortness of Breath Narrative Narrative: 78-year-old female with PMH of HTN, HLD, SVT, asthma and wears 2 L of O2 at night presents with 2 days of congestion and productive cough. Today she feels more short of breath and around 2 PM developed left-sided chest pain. Pain is worse with coughing but is still present without. No fever or chills. She has no appetite but denies nausea or vomiting. She states since she had influenza pneumonia and COVID last year she has required 2 L O2 at night. PFSH <ALEN Diamond - Last Filed: 10/01/23 16:26> [facility], [facility] Medical History (Reviewed 09/29/23 @ 09:47 by Jae Lee RARE/ENDANGERED SPECIES SPECIALIST, RARE/ENDANGERED SPECIES SPECIALIST-C) Abnormal EKG Asthma Bimalleolar ankle fracture Charcot's joint of left foot Diabetes mellitus, type II Essential hypertension GERD (gastroesophageal reflux disease) History of DVT (deep vein thrombosis) Hyperglycemia due to type 2 diabetes mellitus Hyperlipidemia Hypertension THAIS (obstructive sleep apnea) Palpitations Paroxysmal SVT (supraventricular tachycardia) Premature atrial contractions Premature ventricular contraction Sinus bradycardia Home Medications aspirin 81 mg tablet,delayed release 81 mg PO DAILY heart health 11/24/17 [History Last Taken 01/19/19 16:00] ramipril 10 mg capsule 10 mg PO BID HEART 01/19/19 [History Last Taken 01/19/19 21:00] cholecalciferol (vitamin D3) 1,250 mcg (50,000 unit) capsule 1,250 mcg PO QWEEK SUPPLEMENT 12/03/19 [History Last Taken Unknown] furosemide 20 mg tablet 20 mg PO DAILY PRN water pill 01/22/21 [History Last Taken Unknown] budesonide-formoterol HFA 160 mcg-4.5 mcg/actuation aerosol inhaler 2 puff inhalation BID ASTHMA 12/21/21 [History Last Taken Unknown] zolpidem 5 mg tablet 2.5 mg PO QHS PRN Insomnia 02/11/22 [History Last Taken Unknown] insulin lispro 100 unit/mL subcutaneous solution 6 unit subcut TIDCM dm 06/22/22 [History Last Taken Unknown] omeprazole magnesium 20 mg tablet,delayed release (Prilosec OTC) 20 mg PO DAILY GERD 06/22/22 [History Last Taken Unknown] albuterol sulfate 90 mcg/actuation aerosol inhaler (Ventolin HFA) 2 puff inhalation 4XD PRN sob #8.5 grams 07/14/22 [Rx Last Taken Unknown] metoprolol tartrate 25 mg tablet 25 mg PO BID BLOOD PRESSURE 07/17/22 [History Last Taken Unknown] acetaminophen 325 mg tablet (Tylenol) 650 mg (2 x 325 mg) PO Q6H PRN PRN Pain 1- 10 Or Fever >100.7 #0 tabs 08/02/22 [Rx Last Taken Unknown] insulin glargine-yfgn 100 unit/mL (3 mL) subcutaneous pen 24 unit (0.24 mL) subcut BID #15 mL 08/02/22 [Rx Last Taken Unknown] insulin lispro 100 unit/mL subcutaneous pen (Humalog KwikPen (U-100) Insulin) See Protocol subcut ACHS #0 mL 08/02/22 [Rx Last Taken Unknown] amlodipine 10 mg tablet 10 mg PO DAILY 10/01/23 [History Last Taken Unknown] metoprolol tartrate 50 mg tablet 50 mg PO Q12H heart rate, BP 10/01/23 [History Last Taken Unknown] Allergy/AdvReac Type Severity Reaction Status Date / Time hydromorphone Allergy Severe Anaphylaxis Verified 10/01/23 14:33 tramadol Allergy Severe Anaphylaxis Verified 10/01/23 14:33 amiodarone Allergy Intermediate Swelling Verified 10/01/23 14:33 [place] And Derivatives Allergy Intermediate Hives Verified 10/01/23 14:33 morphine Allergy Intermediate confusion Verified 10/01/23 14:33 moxifloxacin Allergy Intermediate Shortness Verified 10/01/23 14:33 of breath nabumetone Allergy Intermediate damaged Verified 10/01/23 14:33 kidney penicillin G Allergy Intermediate TURNS BLUE Verified 10/01/23 14:33 propoxyphene Allergy Intermediate PT UNSURE Verified 10/01/23 14:33 OF REACTION acetaminophen [From [place]] Allergy Mild dystonia Verified 10/01/23 14:33 amlodipine Allergy Mild Abd Verified 10/01/23 14:33 cramps/diarrhea ascorbic acid Allergy Mild Itching Verified 10/01/23 14:33 [From Air[place] (ascorbate sodium)] desloratadine Allergy Mild headache Verified 10/01/23 14:33 glutamine Allergy Mild Itching Verified 10/01/23 14:33 [From Airborne (ascorbate sodium)] herbal complex no.124 Allergy Mild Itching Verified 10/01/23 14:33 [From Airborne (ascorbate sodium)] hydrocodone [From [place]] Allergy Mild dystonia Verified 10/01/23 14:33 lysine HCl Allergy Mild Itching Verified 10/01/23 14:33 [From Airborne (ascorbate sodium)] multivitamin with minerals Allergy Mild Itching Verified 10/01/23 14:33 [From Airborne (ascorbate sodium)] pravastatin Allergy Unknown unknown Verified 10/01/23 14:33 rosuvastatin [From Crestor] Allergy Unknown myalgias Verified 10/01/23 14:33 simvastatin Allergy Unknown unknown Verified 10/01/23 14:33 escitalopram Allergy Other Verified 10/01/23 14:33 hydrochlorothiazide Allergy Other Verified 10/01/23 14:33 Zywgbhs-VFX-IrM Reductase AdvReac Severe myalgias Verified 10/01/23 14:33 Inhibitor [Wyrlrkf-Jcr-Gst Reductase Inhibitor] amoxicillin [From Augmentin] AdvReac Other Verified 10/01/23 14:33 clavulanic acid AdvReac Other Verified 10/01/23 14:33 [From Augmentin] codeine AdvReac Nausea Verified 10/01/23 14:33 naproxen [From Naprosyn] AdvReac Nausea Verified 10/01/23 14:33 Family History Mother Aortic stenosis Presence of permanent cardiac pacemaker Surgical History (Reviewed 09/29/23 @ 09:47 by Jae Lee RARE/ENDANGERED SPECIES SPECIALIST, RARE/ENDANGERED SPECIES SPECIALIST-C) History of cholecystectomy History of herniorrhaphy History of tonsillectomy Status post ORIF of fracture of ankle Social History (Reviewed 09/29/23 @ 09:47 by Jae Lee RARE/ENDANGERED SPECIES SPECIALIST, RARE/ENDANGERED SPECIES SPECIALIST-C) household members: spouse Smoking Status: Former smoker alcohol intake: never substance use type: does not use caffeine: Yes Type: coffee Number of servings: 3 ROS <ALEN Diamond - Last Filed: 10/01/23 16:26> ROS ED ROS Narrative Constitutional: Negative for fever, chills. CVS: Positive for chest pain. No syncope or palpitations. Respiratory: Positive for shortness of breath, cough. GI: Negative for abdominal pain, nausea, vomiting, diarrhea. EXAM <ALEN Diamond - Last Filed: 10/01/23 16:26> Physical Exam Narrative Exam Narrative: CONST: Patient sitting in no acute distress. EYES: Normal inspection. NECK: Normal inspection. RESP: No respiratory distress, diminished due to body habitus but CTAB. CVS: Regular rate and rhythm, no murmur, no gallop. SKIN: Color normal, no rash, warm, dry, intact. EXTREMITIES: Normal appearance, no pedal edema. NEURO: Oriented x4. PSYCH: Normal affect. Const Vital Signs: 10/01/23 14:33 10/01/23 15:17 Temperature 99.3 F H Temperature Source Temporal Pulse Rate 67 Respiratory Rate 22 H Respiratory Effort Short of Breath Respiratory Depth Normal Respiratory Pattern Normal Blood Pressure 161/62 H Blood Pressure Mean 95 Pulse Ox 95 Oxygen Delivery Method Room Air Room Air <Dr. Mark Castillo MD - Last Filed: 10/01/23 16:29> Physical Exam Const Vital Signs: 10/01/23 14:33 10/01/23 15:17 Temperature 99.3 F H Temperature Source Temporal Pulse Rate 67 Respiratory Rate 22 H Respiratory Effort Short of Breath Respiratory Depth Normal Respiratory Pattern Normal Blood Pressure 161/62 H Blood Pressure Mean 95 Pulse Ox 95 Oxygen Delivery Method Room Air Room Air MDM <ALEN Diamond - Last Filed: 10/01/23 16:26> [facility] MDM Narrative Medical decision making narrative: History gathered from: Patient and spouse Differential: Viral URI, pneumonia, asthma exacerbation Patient has acute URI symptoms x 2 days. She complains of cough and chest pain. She appears well and nontoxic. RR is 22, revealing stable vital signs. She is 95% on room air and has normal cardiopulmonary exam. She speaking in full sentences in no distress. CBC and BMP unremarkable. Glucose of 163 is consistent with her diabetes. CXR shows no acute process and COVID/flu/RSV is negative. EKG is sinus rhythm with no ischemic changes and troponin is normal. I suspect she has a viral URI/bronchitis and discussed symptomatic management at home. She is stable on room air here. She wears 2 L of O2 at home at night and will monitor her oxygen levels. She was discharged in stable condition. I have personally performed a face to face assessment of the patient and have reviewed the ABIMBOLA Note. I performed a substantive portion of the visit including all aspects of the following. My dumont findings include: History is remarkable for history of smoking 25 years ago. Patient does have obstructive sleep apnea and uses oxygen at night. Her symptoms started yesterday. She has upper respiratory tract infectious symptoms. She also is endorsing productive cough of green thick sputum. She does have a history of diabetes. She denies polyuria polydipsia. Patient denies headache, visual, ocular auditory symptoms. She does endorse rhinorrhea, congestion and mild sore throat. She also reports chest discomfort. Her major concern is pneumonia. She has remote history of DVT which was provoked. She had an ankle fracture and was in rehab for 49 days. Patient denies orthopnea, PND. She does report dyspnea dyspnea on exertion since yesterday. She has chronic leg swelling. She has braces on her legs because of Charcot's joint disease due to her diabetes. Exam is remarkable for patient being tachypneic. She is not febrile. Her temperature is elevated for a 78-year-old person at 93.7 degrees. HEENT exam is remarkable for mild nasal congestion. Trachea is midline. There is no stridor. There is no JVD. Exam is limited to the fact that she is morbidly obese. Lungs reveal no wheeze, rales or rhonchi. Breath sounds are symmetric. Heart is regular. Rate is normal. There is no murmur, gallop or rub. Furthermore there is no use of accessory muscles or retractions. Medical Decision Making differential diagnosis would be acute upper respiratory infection, pneumonia, doubt pneumothorax. Atypical presentation for cardiac disease. Will review prior records. Other additions or changes: [None] Lab Data Labs: Laboratory Results - last 24 hr 10/01/23 15:00 WBC 8.4 RBC 4.44 Hgb 12.7 Hct 39.6 MCV 89.2 MCH 28.6 MCHC 32.1 RDW Std Deviation 41.0 RDW Coeff of Madalyn 12.5 Plt Count 182 MPV 12.1 H Immature Gran % (Auto) 0.100 Neut % (Auto) 81.4 H Lymph % (Auto) 9.3 L [place] % (Auto) 7.6 Eos % (Auto) 1.2 Baso % (Auto) 0.4 Absolute Neuts (auto) 6.9 Absolute Lymphs (auto) 0.78 L Nucleated RBC % 0 Sodium 138 Potassium 3.9 Chloride 103 Carbon Dioxide 29.0 Anion Gap 6 BUN 12 Creatinine 0.77 Estim Creat Clear Calc 92.45 Est GFR (MDRD) Af Amer 94 Est GFR (MDRD) Non-Af 78 BUN/Creatinine Ratio 15.7 Glucose 163 H Calcium 9.0 Troponin I High Sens 8 Radiography Diagnostic Testing: Clinical Impression(s) from Imaging Studies Chest X-Ray 10/01/23 14:39 IMPRESSION: No acute thoracic pathology. Electronically Signed: Thomas Cardenas MD at 15:58 EDT , ED attending interpretation of 2-view chest x-ray shows normal heart size, no acute infiltrate, edema, or effusion. EKG Initial EKG: Attestation: I personally reviewed and interpreted this EKG as follows: Interpretation: Sinus Rhythm and No Acute Injury Pattern Comments: Normal sinus rhythm with sinus arrhythmia at 67 bpm Normal intervals, no acute ischemic changes <Dr. Mark Castillo MD - Last Filed: 10/01/23 16:29> [facility] MDM Narrative Medical decision making narrative: I have personally performed a face to face assessment of the patient and have reviewed the ABIMBOLA Note. I performed a substantive portion of the visit including all aspects of the following. My dumont findings include: History is remarkable for history of smoking 25 years ago. Patient does have obstructive sleep apnea and uses oxygen at night. Her symptoms started yesterday. She has upper respiratory tract infectious symptoms. She also is endorsing productive cough of green thick sputum. She does have a history of diabetes. She denies polyuria polydipsia. Patient denies headache, visual, ocular auditory symptoms. She does endorse rhinorrhea, congestion and mild sore throat. She also reports chest discomfort. Her major concern is pneumonia. She has remote history of DVT which was provoked. She had an ankle fracture and was in rehab for 49 days. Patient denies orthopnea, PND. She does report dyspnea dyspnea on exertion since yesterday. She has chronic leg swelling. She has braces on her legs because of Charcot's joint disease due to her diabetes. Exam is remarkable for patient being tachypneic. She is not febrile. Her temperature is elevated for a 78-year-old person at 93.7 degrees. HEENT exam is remarkable for mild nasal congestion. Trachea is midline. There is no stridor. There is no JVD. Exam is limited to the fact that she is morbidly o bese. Lungs reveal no wheeze, rales or rhonchi. Breath sounds are symmetric. Heart is regular. Rate is normal. There is no murmur, gallop or rub. Furthermore there is no use of accessory muscles or retractions. Medical Decision Making differential diagnosis would be acute upper respiratory infection, pneumonia, doubt pneumothorax. Atypical presentation for cardiac disease. Will review prior records. Other additions or changes: [None] History & Record Review Additional record(s) reviewed:: Prior inpatient record (Dr. Rodriguez's note for July 2022 for admission from 2022 was reviewed.) and Prior outpatient record (Patient had recent visit for PACs and palpitations September 15 and September 20. She also had visits October 2022 for chest pain.) Lab Data Attestation: I reviewed the patient's lab results. Lab results narrative: CBC is unremarkable. Basic metabolic panel is marked for glucose of 163 with normal CO2 anion gap. Troponin is normal with hours of discomfort. Rapid antigen for COVID, influenza and RSV were all negative. Labs: Laboratory Results - last 24 hr 10/01/23 15:00 WBC 8.4 RBC 4.44 Hgb 12.7 Hct 39.6 MCV 89.2 MCH 28.6 MCHC 32.1 RDW Std Deviation 41.0 RDW Coeff of Madalyn 12.5 Plt Count 182 MPV 12.1 H Immature Gran % (Auto) 0.100 Neut % (Auto) 81.4 H Lymph % (Auto) 9.3 L [place] % (Auto) 7.6 Eos % (Auto) 1.2 Baso % (Auto) 0.4 Absolute Neuts (auto) 6.9 Absolute Lymphs (auto) 0.78 L Nucleated RBC % 0 Sodium 138 Potassium 3.9 Chloride 103 Carbon Dioxide 29.0 Anion Gap 6 BUN 12 Creatinine 0.77 Estim Creat Clear Calc 92.45 Est GFR (MDRD) Af Amer 94 Est GFR (MDRD) Non-Af 78 BUN/Creatinine Ratio 15.7 Glucose 163 H Calcium 9.0 Troponin I High Sens 8 Radiography Chest X-Ray - ED: 2 View and Read by ED Physician (There are no acute changes. Cardiac silhouette and size normal. Lung parenchyma reveals some chronic changes. Mediastinum is normal. Osseous structures are unremarkable.) Diagnostic Testing: Clinical Impression(s) from Imaging Studies Chest X-Ray 10/01/23 14:39 IMPRESSION: No acute thoracic pathology. Electronically Signed: Thomas Cardenas MD at 15:58 EDT , Discharge Plan Triage Chief Complaint: Shortness of Breath ED Midlevel Provider: Amber Martino ED Provider: Mark Castillo Dx/Rx/DC Orders Clinical Impression: Acute URI, Essential hypertension, Hyperlipidemia, Atypical chest pain, Obstructive sleep apnea Instructions: ED URI, Viral, No Abx (Adult) Prescriptions: No Action aspirin 81 mg tablet,delayed release (DR/EC) 81 mg PO DAILY Patient Comments: only takes sometimes cholecalciferol (vitamin D3) 1,250 mcg (50,000 unit) capsule 1,250 mcg PO QWEEK furosemide 20 mg tablet 20 mg PO DAILY PRN (Reason: water pill) insulin lispro 100 unit/mL solution 6 unit subcut TIDCM Protocol: 4. Sliding Scale Insulin High-Med Dosing Condition: 150-199 mg/dl = 2 units Condition: 200-259 mg/dl = 4 units Condition: 260-324 mg/dl = 6 units Condition: 325-374 mg/dl = 8 units Condition: 375-409 mg/dl = 10 units Condition: 410-449 mg/dl = 11 units Condition: Greater than 449 call physician Protocol Text: - Use for Total Daily Dose of Insulin 56-80 units - Patient who are insulin resistant or septic HIGH MEDIUM DOSING ALGORITHM Patient Comments: INJECT 3 TO 10 UNITS SUBCUTANEOUSLY BEFORE MEALS DIRECTED budesonide-formoterol 160-4.5 mcg/actuation HFA aerosol inhaler 2 puff inhalation BID omeprazole magnesium [Prilosec OTC] 20 mg tablet,delayed release (DR/EC) 20 mg PO DAILY ramipril 10 MG capsule 10 mg PO BID Patient Comments: TAKE 1 CAPSULE BY MOUTH TWICE DAILY zolpidem 5 mg Tablet 2.5 mg PO QHS PRN (Reason: Insomnia) albuterol sulfate [Ventolin HFA] 90 mcg/actuation HFA aerosol inhaler 2 puff INHALATION 4XD PRN (Reason: sob) Qty: 8.5 0RF Rx Instructions: use four times a day for the next seven days, then use every 6 hours as needed for shortness of breath metoprolol tartrate 25 mg tablet 25 mg PO BID acetaminophen [Tylenol] 325 mg Tablet 650 mg PO Q6H PRN PRN (Reason: Pain 1-10 Or Fever >100.7) Qty: 0 0RF insulin lispro [Humalog KwikPen Insulin] 100 unit/mL Insulin Pen See Protocol subcut ACHS Qty: 0 0RF Protocol: 4. Sliding Scale Insulin High-Med Dosing Condition: 150-199 mg/dl = 2 units Condition: 200-259 mg/dl = 4 units Condition: 260-324 mg/dl = 6 units Condition: 325-374 mg/dl = 8 units Condition: 375-409 mg/dl = 10 units Condition: 410-449 mg/dl = 11 units Condition: Greater than 449 call physician Protocol Text: - Use for Total Daily Dose of Insulin 56-80 units - Patient who are insulin resistant or septic HIGH MEDIUM DOSING ALGORITHM insulin glargine-yfgn 100 unit/mL (3 mL) insulin pen 24 unit subcut BID Qty: 15 0RF metoprolol tartrate 50 mg tablet 50 mg PO Q12H Patient Comments: takes half tablet in morning and night amlodipine 10 mg tablet 10 mg PO DAILY Patient Comments: takes half tablet/day Primary Care Provider: Luzma Palencia Referrals: Luzma Palencia MD [Primary Care Provider] - Activity Restrictions/Additional Instructions: Your chest x-ray shows no sign of pneumonia and COVID/flu/RSV swab is negative. I suspect this is a different viral upper respiratory infection. Use nasal saline and [id number] congestion medication as needed. Follow-up with your doctor. If symptoms worsen return to ER.
--- OUTSIDE RECORDS SUMMARY | 2023-10-01 15:11 | XMS RPT_ITS | CCD ---
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 Name Role Phone Lydia Cook Unavailable Unavailable Lydia Cook Unavailable Unavailable Nola YING, Bettina Worrell Unavailable Unavailable Octavio Reza MD Primary Care Provider Libia JOSE Octavio D Primary Care Provider Octavio Reza MD Primary Care Provider LIBIA, OCTAVIO D Primary Care Unavailable TIERNEY HELM Referring Unavailable TALAMPAS, OCTAVIO D Primary Care Unavailable TIERNEY HELM Referring Unavailable TALAMPAS, OCTAVIO D Primary Care Unavailable LYDIA GRANDE Attending Unavailable TALAMPAS, OCTAVIO D Primary Care Unavailable GRANDELYDIA Referring Unavailable TALAMPAS, OCTAVIO D Attending Unavailable TALAMPAS, OCTAVIO D Primary Care Unavailable CHRISTINE PERKINS Attending Unavailable TALAMPAS, OCTAVIO D Primary Care Unavailable DAVON WOLFE Attending Unavailable TALAMPAS, OCTAVIO D Primary Care Unavailable DAVON WOLFE Attending Unavailable TALAMPAS, OCTAVIO D Primary Care Unavailable TALAMPAS, OCTAVIO D Primary Care Unavailable TALAMPAS, OCTAVIO D Attending Unavailable TALAMPAS, OCTAVIO D Primary Care Unavailable TALAMPAS, OCTAVIO D Referring Unavailable DAVON WOLFE Referring Unavailable ANANT LEES Attending Unavailable TALAMPAS, OCTAVIO D Primary Care Unavailable TALAMPAS, OCTAVIO D Primary Care Unavailable TALAMPAS, OCTAVIO D Attending Unavailable TALAMPAS, OCTAVIO D Primary Care Unavailable TIERNEY HELM Attending Unavailable TALAMPAS, OCTAVIO D Primary Care Unavailable TIERNEY HELM Referring Unavailable Allergies Allergy Classification Reported Allergen(s) Allergy Type Date of Onset Reaction(s) Facility (3 sources) codeine drug allergy 2 nausea/vomiting [facility] Work Phone: [phone] (6 sources) NKA drug allergy 2 [facility] Work Phone: (20 sources) Acetaminophen / Codeine; Translations: [ACETAMINOPHEN-COD EINE] Drug Allergy 5 Vomiting [facility] Work Phone: [phone] (20 sources) Albuterol; Translations: [ALBUTEROL SULFATE] Drug Allergy 4 GI Upset, Vomiting [facility] Work Phone: [phone] (20 sources) aMILoride / hydroCHLOROthiazid e; Translations: [AMILORIDE-HYDROCH LOROTHIAZIDE] Drug Allergy 1 Other: See Comments [facility] Work Phone: (20 sources) atorvastatin; Translations: [ATORVASTATIN] Drug Allergy 5 Myalgia [facility] Work Phone: (20 sources) Escitalopram; Translations: [ESCITALOPRAM] Drug Allergy 3 Intolerance [facility] Work Phone: (20 sources) Naproxen; Translations: [NAPROXEN] Drug Allergy 5 GI Upset [facility] Work Phone: (20 sources) Pravastatin; Translations: [PRAVASTATIN] Drug Allergy 7 GI Upset [facility] Work Phone: (20 sources) rosuvastatin; Translations: [ROSUVASTATIN] Drug Allergy 1 Intolerance [facility] Work Phone: (20 sources) Simvastatin; Translations: [SIMVASTATIN] Drug Allergy 7 Myalgia [facility] Work Phone: (20 sources) Doxycycline; Translations: [DOXYCYCLINE] Drug Allergy 3 GI Upset [facility] Work Phone: [phone] Medications Current Medications Medication Drug Class(es) [...] Drug Class(es) Dates Sig (Normalized) Sig (Original) [id number] actuat albuterol 0.09 mg/actuat metered dose inhaler (20 sources) beta2-Adrenergic Agonist Start: 06-09-2020 take 2 puff(s) by inhalation four times daily as needed for wheezing albuterol HFA (PROVENTIL HFA, VENTOLIN HFA) 90 mcg/actuation inhaler Indications: Uncomplicated severe persistent asthma Inhale 2 Puffs as instructed four times daily as needed. FOR WHEEZING AND SHORTNESS OF BREATH. 6.7 g 06/09/2020 Active Problems Active Problems Problem Classification [...] Chronic Chronic obstructive pulmonary disease and bronchiectasis (15 sources) Acute exacerbation of chronic obstructive airways [...] unspecified] Onset: 2 Resolved: 7 11-19-2016 Chronic Miscellaneous mental health disorders (1 source) Primary insomnia; Translations: [Primary insomnia] Onset: 7 Chronic Mood disorders (20 sources) Depressive disorder; [...] Episodic Other nervous system disorders (3 sources) Iyyswio-Ogvxo-Pkumg disease; Translations: [Hereditary motor and sensory neuropathy] [...] endocrine; and metabolic disorders (1 source) Morbid obesity; Translations: [Morbid (severe) obesity due to excess calories] 09-22-2023 Chronic Other nutritional; endocrine; and metabolic disorders [...] in adult, unspecified whether serious comorbidity present ([facility])] Onset: 3 Chronic Other screening for suspected conditions (not mental disorders or infectious disease) (11 sources) Patient encounter status; Translations: [Encounter for screening for malignant neoplasm of colon] Episodic Residual codes; unclassified (1 source) Obstructive sleep apnea syndrome; Translations: [Obstructive sleep apnea (adult) (pediatric)] 09-22-2023 Chronic Residual codes; unclassified (4 sources) Hypoxia; Translations: [Idiopathic sleep related nonobstructive alveolar hypoventilation] Onset: 4 09-22-2023 Chronic Residual codes; unclassified (1 source) History of delirium; Translations: [Personal history of other specified conditions] 02-21-2023 Episodic Unclassified (1 source) PSVT (paroxysmal supraventricular tachycardia) ([facility]); Translations: [PSVT (paroxysmal supraventricular tachycardia) ([facility])] Onset: 4 Unclassified (1 source) Paroxysmal SVT (supraventricular tachycardia); Translations: [Paroxysmal SVT (supraventricular tachycardia)] Onset: 3 Viral infection (1 source) COVID-19; Translations: [Pneumonia due to other virus not elsewhere classified] Episodic Past or Other Problems Problem Classification Problem Date Documented Date Episodic/Chronic Cardiac dysrhythmias (20 sources) Palpitations; Translations: [Palpitations] Onset: 10-06-19 Episodic E Codes: Adverse effects of medical drugs (20 sources) HMG COA reductase inhibitor adverse reaction; Translations: [Adverse effect of antihyperlipidemic and antiarteriosclerotic drugs, initial encounter] Onset: 06-07-2006-07-2022 Episodic Immunizations and screening for infectious disease (1 source) Encounter for immunization; Translations: [Encounter for immunization] Onset: 05-23-20 Episodic Inflammatory diseases of female pelvic organs (3 sources) Cellulitis; Translations: [Abscess of vulva] Onset: 10-06-19 Episodic Malaise and fatigue (20 sources) Asthenia; Translations: [Other malaise] Onset: 10-01-19 10 09-30-2009 Episodic Other aftercare (1 source) Other custodial (current) drug therapy; Translations: [Encounter for long-term current use of medication] Onset: 05-16-20 23 Episodic Other lower respiratory disease (3 sources) [...] 06-01-2007 Episodic Respiratory failure; insufficiency; arrest (adult) (15 sources) Acute respiratory failure; Translations: [Acute respiratory failure with hypoxia] Onset: 11-13-19 23 11-12-2022 Episodic Results Test Name Value Interpretation Reference Range Facil ity Vital Signs Date Time Vital Sign Value Performing Clinician Facility 09-22-2023 13:02-0500 Body weight 155.13 kg Christine Perkins MD Work Phone[facility] 09-22-2023 13:02-0500 Diastolic blood pressure 68 mm[Hg] Christine Perkins MD Work Phone: [facility] 09-22-2023 13:02-0500 Heart rate 65 /min Christine Perkins MD Work Phone: [facility] 09-22-2023 13:02-0500 Respiratory rate 18 /min Christine Perkins MD Work Phone: [facility] 09-22-2023 13:02-0500 SaO2% (BldA) [Mass fraction] 96 % Christine Perkins MD Work Phone: [facility] 09-22-2023 13:02-0500 Systolic blood pressure 136 mm[Hg] Christine Perkins MD Work Phone: [facility] 09-01-2023 12:05-0500 Body weight 156.49 kg Lydia Grande DATE PITTER.DIRECTIONAL SURVEY DRAFTER Work Phone: [facility] 09-01-2023 12:05-0500 Diastolic blood pressure 74 mm[Hg] Lydia Grande DATE PITTER.DIRECTIONAL SURVEY DRAFTER Work Phone: [facility] 09-01-2023 12:05-0500 Heart rate 64 /min Lydia Grande DATE PITTER.DIRECTIONAL SURVEY DRAFTER Work Phone: [facility] 09-01-2023 12:05-0500 Respiratory rate 16 /min Lydia Grande DATE PITTER.DIRECTIONAL SURVEY DRAFTER Work Phone: [facility] 09-01-2023 12:05-0500 SaO2% (BldA) [Mass fraction] 96 % Lydia Grande DATE PITTER.DIRECTIONAL SURVEY DRAFTER Work Phone: [facility] 09-01-2023 12:05-0500 Systolic blood pressure 144 mm[Hg] Lydia Grande DATE PITTER.DIRECTIONAL SURVEY DRAFTER Work Phone: [facility] 06-23-2023 08:53-0500 Diastolic blood pressure 84 mm[Hg] Tierney Mayra PA-C Work Phone: [facility] 06-23-2023 08:53-0500 Heart rate 57 /min Tierney Mayra PA-C Work Phone: [facility] 06-23-2023 08:53-0500 Respiratory rate 17 /min Tierney Mayra PA-C Work Phone: [facility] 06-23-2023 08:53-0500 SaO2% (BldA) [Mass fraction] 96 % Tierney Mayra PA-C Work Phone: [facility] 06-23-2023 08:53-0500 Systolic blood pressure 122 mm[Hg] Tierney Mayra PA-C Work Phone: [facility] 05-23-2023 14:08-0500 Body temperature 97.2 [degF] Octavio Reza MD Work Phone: [facility] 05-23-2023 14:08-0500 Body weight 154.22 kg Octavio Reza MD Work Phone: [facility] 05-23-2023 14:08-0500 Diastolic blood pressure 82 mm[Hg] Octavio Reza MD Work Phone: [facility] 05-23-2023 14:08-0500 Heart rate 68 /min Octavio Reza MD Work Phone: [facility] 05-23-2023 14:08-0500 Respiratory rate 18 /min Octavio Reza MD Work Phone: [facility] 05-23-2023 14:08-0500 SaO2% (BldA) [Mass fraction] 98 % Octavio Reza MD Work Phone: [facility] 05-23-2023 14:08-0500 Systolic blood pressure 128 mm[Hg] Octavio Reza MD Work Phone: [facility] 05-16-2023 09:30-0400 Body height 176.5 cm Anant Lees MD Work Phone: [facility] 05-16-2023 09:30-0400 Body weight 153.77 kg Anant Lees MD Work Phone: [facility] 05-16-2023 09:30-0400 Diastolic blood pressure 73 mm[Hg] Anant Lees MD Work Phone: [facility] 05-16-2023 09:30-0400 Heart rate 60 /min Anant Lees MD Work Phone: [facility] 05-16-2023 09:30-0400 SaO2% (BldA) [Mass fraction] 97 % Anant Lees MD Work Phone: [facility] 05-16-2023 09:30-0400 Systolic blood pressure 124 mm[Hg] Anant Lees MD Work Phone: [facility] 01-17-2023 13:47-0400 Body temperature 97 [degF] Octavio Reza MD Work Phone: [facility] 01-17-2023 13:47-0400 Diastolic blood pressure 69 mm[Hg] Octavio Reza MD Work Phone: [facility] 01-17-2023 13:47-0400 Heart rate 63 /min Octavio Reza MD Work Phone: [facility] 01-17-2023 13:47-0400 Respiratory rate 18 /min Octavio Reza MD Work Phone: [facility] 01-17-2023 13:47-0400 SaO2% (BldA) [Mass fraction] 96 % Octavio Reza MD Work Phone: [facility] 01-17-2023 13:47-0400 Systolic blood pressure 122 mm[Hg] Octavio Reza MD Work Phone: [facility] 10-05-2022 12:57-0400 Body height 175.3 cm Davon Narda DATE PITTER.INTERNAL CONTROLS ANALYST Work Phone: [facility] 10-05-2022 12:57-0400 Body temperature 97.39 [degF] Davon Narda DATE PITTER.INTERNAL CONTROLS ANALYST Work Phone: [facility] 10-05-2022 12:57-0400 Body weight 151.05 kg Davon Narda DATE PITTER.INTERNAL CONTROLS ANALYST Work Phone: [facility] 10-05-2022 12:57-0400 Diastolic blood pressure 62 mm[Hg] Davon Narda DATE PITTER.INTERNAL CONTROLS ANALYST Work Phone: [facility] 10-05-2022 12:57-0400 Heart rate 71 /min Davon Narda DATE PITTER.INTERNAL CONTROLS ANALYST Work Phone: [facility] 10-05-2022 12:57-0400 Respiratory rate 16 /min Davon Narda DATE PITTER.INTERNAL CONTROLS ANALYST Work Phone: [facility] 10-05-2022 12:57-0400 SaO2% (BldA) [Mass fraction] 97 % Davon Narda DATE PITTER.INTERNAL CONTROLS ANALYST Work Phone: [facility] 10-05-2022 12:57-0400 Systolic blood pressure 138 mm[Hg] Davon Narda DATE PITTER.INTERNAL CONTROLS ANALYST Work Phone: [facility] 09-07-2022 18:00-0500 Diastolic blood pressure 64 mm[Hg] Octavio Reza MD Work Phone: [facility] 09-07-2022 18:00-0500 Systolic blood pressure 144 mm[Hg] Octavio Reza MD Work Phone: [facility] 09-07-2022 17:29-0500 Body temperature 97.9 [degF] Octavio Rzea MD Work Phone: [facility] 09-07-2022 17:29-0500 Heart rate 77 /min Octavio Reza MD Work Phone: [facility] 09-07-2022 17:29-0500 Respiratory rate 18 /min Octavio Reza MD Work Phone: [facility] 09-07-2022 17:29-0500 SaO2% (BldA) [Mass fraction] 98 % Octavio Reza MD Work Phone: [facility] 08-17-2022 15:59-0500 Body temperature 98.2 [degF] Octavio Reza MD Work Phone: [facility] 08-17-2022 15:59-0500 Diastolic blood pressure 68 mm[Hg] Octavio Reza MD Work Phone: [facility] 08-17-2022 15:59-0500 Heart rate 61 /min Octavio Reza MD Work Phone: [facility] 08-17-2022 15:59-0500 Respiratory rate 18 /min Octavio Reza MD Work Phone: [facility] 08-17-2022 15:59-0500 SaO2% (BldA) [Mass fraction] 98 % Octavio Reza MD Work Phone: [facility] 08-17-2022 15:59-0500 Systolic blood pressure 120 mm[Hg] Octavio Reza MD Work Phone: [facility] 05-18-2022 09:19-0400 Diastolic blood pressure 80 mm[Hg] Octavio Reza MD Work Phone: [facility] 05-18-2022 09:19-0400 Heart rate 55 /min Octavio Reza MD Work Phone: [facility] 05-18-2022 09:19-0400 SaO2% (BldA) [Mass fraction] 98 % Octavio Reza MD Work Phone: [facility] 05-18-2022 09:19-0400 Systolic blood pressure 128 mm[Hg] Octavio Reza MD Work Phone: [facility] 02-15-2022 14:44-0400 Body weight 153.77 kg Lydia Grande DATE PITTER.DIRECTIONAL SURVEY DRAFTER Work Phone: [facility] 02-15-2022 14:44-0400 Diastolic blood pressure 60 mm[Hg] Lydia Grande DATE PITTER.DIRECTIONAL SURVEY DRAFTER Work Phone: [facility] 02-15-2022 14:44-0400 Heart rate 63 /min Lydia Grande DATE PITTER.DIRECTIONAL SURVEY DRAFTER Work Phone: [facility] 02-15-2022 14:44-0400 Respiratory rate 16 /min Lydia Grande DATE PITTER.DIRECTIONAL SURVEY DRAFTER Work Phone: [facility] 02-15-2022 14:44-0400 SaO2% (BldA) [Mass fraction] 96 % Lydia Grande DATE PITTER.DIRECTIONAL SURVEY DRAFTER Work Phone: [facility] 02-15-2022 14:44-0400 Systolic blood pressure 144 mm[Hg] Lydia Grande DATE PITTER.DIRECTIONAL SURVEY DRAFTER Work Phone: [facility] 01-11-2022 14:59-0400 Body weight 153.32 kg Octavio Reza MD Work Phone: [facility] 01-11-2022 14:59-0400 Diastolic blood pressure 82 mm[Hg] Octavio Reza MD Work Phone: [facility] 01-11-2022 14:59-0400 Heart rate 68 /min Octavio Reza MD Work Phone: [facility] 01-11-2022 14:59-0400 SaO2% (BldA) [Mass fraction] 97 % Octavio Reza MD Work Phone: [facility] 01-11-2022 14:59-0400 Systolic blood pressure 152 mm[Hg] Octavio Reza MD Work Phone: [facility] 12-23-2021 16:18-0400 Body temperature 97.11 [degF] Guillermo Maruer MD Work Phone: [facility] 12-23-2021 16:18-0400 Body weight 151.05 kg Guillermo Maurer MD Work Phone: [facility] 12-23-2021 16:18-0400 Diastolic blood pressure 82 mm[Hg] Guillermo Maurer MD Work Phone: [facility] 12-23-2021 16:18-0400 Heart rate 72 /min Guillermo Maurer MD Work Phone: [facility] 12-23-2021 16:18-0400 Respiratory rate 16 /min Guillermo Maurer MD Work Phone: [facility] 12-23-2021 16:18-0400 Systolic blood pressure 154 mm[Hg] Guillermo Maurer MD Work Phone: [facility] 12-17-2021 12:44-0400 Body temperature 97.11 [degF] Wanda Praisler-Wood DATE PITTER.INTERNAL CONTROLS ANALYST Work Phone: [facility] 12-17-2021 12:44-0400 Diastolic blood pressure 88 mm[Hg] Wanda Praisler-Wood DATE PITTER.INTERNAL CONTROLS ANALYST Work Phone: [facility] 12-17-2021 12:44-0400 Heart rate 71 /min Wanda Praisler-Wood DATE PITTER.INTERNAL CONTROLS ANALYST Work Phone: [facility] 12-17-2021 12:44-0400 Respiratory rate 18 /min Wanda Praisler-Wood DATE PITTER.INTERNAL CONTROLS ANALYST Work Phone: [facility] 12-17-2021 12:44-0400 SaO2% (BldA) [Mass fraction] 96 % Wanda Phillips DATE PITTER.INTERNAL CONTROLS ANALYST Work Phone: [facility] 12-17-2021 12:44-0400 Systolic blood pressure 146 mm[Hg] Wanda Phillips DATE PITTER.INTERNAL CONTROLS ANALYST Work Phone: [facility] 10-29-2021 09:00-0400 Diastolic blood pressure 66 mm[Hg] Holland Carmichael MD Work Phone: [facility] 10-29-2021 09:00-0400 Heart rate 80 /min Holland Carmichael MD Work Phone: [facility] 10-29-2021 09:00-0400 Respiratory rate 20 /min Holland Carmichael MD Work Phone: [facility] 10-29-2021 09:00-0400 SaO2% (BldA) [Mass fraction] 93 % Holland Carmichael MD Work Phone: [facility] 10-29-2021 09:00-0400 Systolic blood pressure 142 mm[Hg] Holland Carmichael MD Work Phone: [facility] 10-29-2021 07:58-0400 Body temperature 97.59 [degF] Holland Carmichael MD Work Phone: [facility] 09-11-2021 11:56-0500 Diastolic blood pressure 72 mm[Hg] Octavio Reza MD Work Phone: [facility] 09-11-2021 11:56-0500 Systolic blood pressure 148 mm[Hg] Octavio Reza MD Work Phone: [facility] 09-11-2021 10:47-0500 Heart rate 62 /min Octavio Reza MD Work Phone: [facility] 11-22-2016 10:37-0400 BMI (Body Mass Index) 53.08 kg/m2 Lydia [facility] Work Phone: 11-22-2016 10:37-0400 BP [...] BMI (Body Mass Index) 50.21 kg/m2 Bettina Vaca RN [facility] Work Phone: 07-21-2015 13:03-0500 BP Diastolic 70 mm[Hg] Bettina Vaca RN [facility] Work Phone: 07-21-2015 13:03-0500 BP Systolic 146 mm[Hg] Bettina Vaca RN [facility] Work Phone: 07-21-2015 13:03-0500 BSA (Body Surface Area) 2.65 m2 Bettina Vaca RN [facility] Work Phone: 07-21-2015 13:03-0500 Pulse (Heart Rate) 64 /min Bettina Vaca RN [facility] Work Phone: 07-21-2015 13:03-0500 Respiratory Rate 14 /min Bettina Vaca RN [facility] Work Phone: 07-21-2015 13:03-0500 Weight 158.76 kg Bettina Vaca RN [facility] Work Phone: 01-06-2015 15:20-0400 BMI (Body Mass Index) Bettina Vaca RN [facility] Work Phone: 03-15-2012 13:57-0400 Height 177.8 cm Bettina Vaca RN [facility] Work Phone: Encounters Encounter Date Encounter Type Care Provider Facility Start: 09-29-2023 Telephone encounter Octavio carr MD Work Phone: [facility] Procedures Date Procedure Procedure Detail Performing Clinician Start: 06-23-2023 Noninvasive ear/puls e oximetry multiple deter Tierney Helm PA-C Work Phone: Start: 06-23-2023 Nitric oxide gas determination Tierney Helm PA-C Work Phone: Start: 05-18-2022 INFLUENZA SEASONAL QUADRIVALENT HIGH DOSE AGE 65+ Octavio Reza MD Work Phone: Start: 12-16-2021 Radiologic exam ches t 2 views Christine Perkins MD Work Phone: Start: 10-29-2021 Colon ca scrn not hi rsk ind Holland Carmichael MD Work Phone: Start: 10-29-2021 Colonoscopy Holland gandhi MD Work Phone: Start: 11-22-2016 End: 11-22-2016 Follow Up Appt 1 year Chris Zapata Start: 11-22-2016 End: 11-22-2016 PFM Chris Lott MD Start: 07-21-2015 End: 07-21-2015 Follow Up Appt 1 year Chris Zapata Start: 07-21-2015 End: 07-21-2015 PFSahara Lott MD Start: 01-06-2015 End: 01-07-2015 Documentation [...] Activity Detail Author Start: 10-29-2026 Colonoscopy COL[facility] Start: 10-29-2026 COLORECTAL CANCER SCREENING COLORECTAL CANCER SCREENING [facility] Start: 10-29-2026 Screening for malign ant neoplasm of colon [facility] Start: 09-20-2024 Annual PCP Team Roller Repairer matthias Disease Visit Annual PCP Team Chronic Disease Visit [facility] Start: 09-02-2024 Hepatitis B screening Urine Al bumin:Creatinine Ratio [facility] Start: 06-29-2024 Glaucoma screening Dilated Retinal E xam [facility] Start: 05-23-2024 Annual PCP Team Roller Repairer matthias Disease Visit Annual PCP Team Chronic Disease Visit [facility] Start: 05-16-2024 BP Controlled (<130/80) BP Controlle d (<130/80) [facility] Start: 03-01-2024 Hemoglobin A1c measurement HbA1C [facility] Start: 01-18-2024 ANNUAL PCP TEAM BILLING AUDITOR MATTHIAS DISEASE VISIT ANNUAL PCP TEAM CHRONIC DISEASE VISIT [facility] Start: 01-18-2024 BP CONTROLLED (<130/80) BP CONTROLLE D (<130/80) [facility] Start: 01-18-2024 COVID-19 VACCINE (#1) COVID-19 VACCI NE (#1) [facility] Immunizations Immunization Date Immunization Notes Care Provider Fa cility 05-18-2022 influenza, high-dose , quadrivalent vaccine (FLUZONE HIGH DOSE QUADRIVALENT) Octavio Reza MD Work Phone: [facility] 05-18-2022 influenza virus vaccine, unspecified formulation Anant Lees MD Work Phone: [facility] 07-02-2021 influenza, high-dose , quadrivalent vaccine (FLUZONE HIGH DOSE QUADRIVALENT) Octavio Reza MD Work Phone: [facility] 04-15-2020 influenza, high-dose , quadrivalent vaccine (FLUZONE HIGH DOSE QUADRIVALENT) Octavio Reza MD Work Phone: [facility] 04-16-2019 influenza, high dose seasonal, preservative-free Octavio Reza MD Work Phone: [facility] 04-12-2018 influenza, high dose seasonal, preservative-free Octavio Reza MD Work Phone: [facility] 04-11-2017 influenza, high dose seasonal, preservative-free Octavio Reza MD Work Phone: [facility] 05-10-2016 influenza, high dose seasonal, preservative-free Octavio Reza MD Work Phone: [facility] Work Phone: 04-16-2016 pneumococcal vaccine , unspecified formulation Octavio Reza MD Work Phone: [facility] 03-16-2016 pneumococcal conjuga te vaccine, 13 valent Octavio Reza MD Work Phone: [facility] Work Phone: 05-27-2015 influenza, high dose seasonal, preservative-free Octavio Reza MD Work Phone: [facility] 06-12-2014 pneumococcal polysaccharide vaccine, 23 valent Octavio Reza MD Work Phone: [facility] 05-23-2013 influenza virus vaccine, unspecified formulation Octavio Reza MD Work Phone: [facility] 05-23-2013 influenza, seasonal, injectable Octavio Reza MD Work Phone: [facility] 04-13-2012 influenza virus vaccine, unspecified formulation Octavio Reza MD Work Phone: [facility] 06-01-2007 influenza virus vaccine, unspecified formulation Octavio Reza MD Work Phone: [facility] Work Phone: 05-18-2006 influenza virus vaccine, unspecified formulation Octavio Reza MD Work Phone: [facility] Work Phone: 06-15-2005 influenza virus vaccine, unspecified formulation Octavio Reza MD Work Phone: [facility] Work Phone: 07-26-2000 pneumococcal polysaccharide vaccine, 23 valent Octavio Reza MD Work Phone: [facility] Work Phone: NEGATED: Highlighted row has not occurred!12-09-2023 influenza (HD-IIV4) vaccine, age 65+ yr, high dose, quadrivalent, PF (FLUZONE HIGH-DOSE) Octavio Reza MD Work Phone: [facility] Work Phone: NEGATED: Highlighted row has not occurred!05-23-2023 influenza (HD-IIV4) vaccine, age 65+ yr, high dose, quadrivalent, PF (FLUZONE HIGH-DOSE) Lydia Grande APRN.DIRECTIONAL SURVEY DRAFTER Work Phone: [facility] NEGATED: Highlighted row has not occurred!02-15-2022 COVID-19 vaccine, age 12+ yr ([employer]) Lydia Grande APRN.DIRECTIONAL SURVEY DRAFTER Work Phone: [facility] Work Phone: NEGATED: Highlighted row has not occurred!02-15-2022 influenza virus vaccine, unspecified formulation Lydiajennifer Grande APRN.DIRECTIONAL SURVEY DRAFTER Work Phone: [facility] Work Phone: NEGATED: Highlighted row has not occurred!02-15-2022 tetanus toxoid, reduced diphtheria toxoid, and acellular pertussis vaccine, adsorbed Lydiajennifer Grande APRN.DIRECTIONAL SURVEY DRAFTER Work Phone: [facility] Work Phone: Payers Date Payer Category Payer Medicare [employer] MEDICARE A ETNA MEDICARE PPO [id number] 2021-Present [phone] [address] [place] [address] PPO [id number] 2021 Medicare [id number] 2021 Medicare [id number] Social History Date Type Detail Facility Start: 09-07-2022 Tobacco smoking stat [facility] Ex-smoker [facility] End: 10-21-1998 History of tobacco use Current smoker [facility] End: 10-21-1998 History of tobacco use Cigarette Smoker [facility] Start: 09-30-2021 End: 09-22-2023 Alcohol intake Current drinker of alcohol (finding) [facility] Start: 02-24-2018 History SDOH Alcohol Comment Rarely [facility] Start: 1945 Sex Assigned At Not on file [facility] Start: 09-20-2021 End: 05-18-2022 Exposure to SARS-CoV-2 (event) Not sure [facility] Start: 12-13-2021 End: 12-23-2021 Exposure to SARS-CoV-2 (event) Unable to assess [facility] Work Phone: Start: 09-07-2022 End: 01-17-2023 Cigarettes smoked current (pack per day) - Reported 0.5 [facility] Start: 09-07-2022 Tobacco use and exposure Smokeless tobacco non-user [facility] Work Phone: Start: 01-11-2022 End: 01-17-2023 Tobacco use panel [facility] Adult Depression Screening Assessment 2 [facility] Medical Equipment Procedure Code Equipment Code Equipment Origin al Text Equipment Identifier Dates Start: 09-24-2020 End: 09-23-2023 Goals Date Patient Goal Desired Activity /State Personal health goal Clinical Notes 05-11-2021 to 09-29-2023 Telephone Encounter - Pattie Giles RN - 09/29/2023 2:53 PM EDTTelephone Encounter - Vibha Peña LPN - 09/26/2023 3:12 PM Christine Oates MD - 09/22/2023 1:15 PM EST Note Date & Type Note Facility 09-29-2023 Miscellaneous Notes Patient calls to request an updated medication list be sent to [facility]. Faxed to [phone] per request. Pattie Giles RN documented in this encounter [facility] 09-26-2023 Miscellaneous Notes Called the pharmacy and they gave a number of [phone]. Number called and PA approved from 09/26/23 to 09/25/24. PA approval number is [id number]. Pharmacy notified. Pt notified. PRIOR AUTHORIZATION Medication for Prior Authorization: glucose test strips testing 8 times daily Other formulary meds available : NO Insurance Company: [employer] Medicare Insurance [employer] phone number: [phone] Patient insurance ID number: [id number] Cecy Brush LPN Patient testing 8 times daily, blood sugars changing frequently, she takes 3 types insulin daily, Novolog at meals, NPH at breakfast and Glargine at bedtime. documented in this encounter [facility] 09-23-2023 Miscellaneous Notes Pt reports she is almost out of her test strips, and she has to test 8 x a day. Patient has been identified by name and date of : Yes, Provider Dr Reza Date 09/23/23 Time 0821. Patient phones for refill(s): Requested Prescriptions Pending Prescriptions Disp Refills blood sugar diagnostic (BLOOD GLUCOSE TEST) test strip 200 Strip 11 Sig: Test blood sugar(s) 8 times daily--Medically Necessary for labile blood sugars (highs and lows). Dx: Other DM Code E10.8, E11.610 Insulin: Yes Date of last office visit in primary care: 09/21/2023 Date of next office visit in primary care: 02/07/2024 Please advise. Thank you. Parris Eckert RN. documented in this encounter [facility] 09-22-2023 Note HNO ID: [id number] Author: CHRISTINE PERKINS MD Service: ? Author Type: Physician Type: Progress Notes Filed: 09/22/2023 16:52 Note Text: . Respiratory Dorena Note Patient name: Shereen Seals PCP: Octavio Reza MD CC: Follow-up asthma HPI: Shereen Seals 78 year old female former 10 pack year smoker with PMH significant for HTN, HLD, GERD, DM2, THAIS non-compliant with BiPAP, nocturnal oxygen use, asthma, former patient of Dr. Luu, new to de. History notable for influenza A infection in 2021, resulting in hypoxemia. She was discharged on 2-4 L. She had COVID PNA 07/2022, did not require NIV or intubation, sent to rehab and ultimately discharded to home on supplemental oxygen. Current therapy with Symbicort and as needed albuterol. Most recent oxygen assessment did not show a need for portable oxygen. Overall, overnight oximetry showed oxygen saturation less than 89% hour and 8 minutes 122 desaturation events, lowest oxygen saturation 80%. Patient intolerant of BiPAP. Instructed to use supplemental oxygen at night 2 L. Today she states she has been doing fairly well. She is compliant with use of her inhaled therapy. No need for her rescueinhaler. Main symptom is dyspnea. She denies chronic cough, sputum production or audible wheezing. No recent upper respiratory infections or hospitalization. She has had elevated exhaled nitric oxide levels in the past. Today her exhaled nitric oxide level is normal and pulmonary function test show restriction with small airways obstruction. DME: [employer] 2 L DATA: Oximetry with Ambulation Test for This Encounter [...] unable to ambulate at a faster pace SERVICE DATE: 06/23/2023 SERVICE TIME: 9:38 AM Oral Exhaled Nitric Oxide measurement: 16.0 (ppb) PFT: Review pulmonary function test showed restriction and small airways obstruction Labs: Component Ref Range AND Units 2 wk ago (09/01/23) WBC 3.70 - 11.00 k/uL 7.30 RBC 3.90 - 5.20 m/uL 4.43 Hemoglobin 11.5 - 15.5 g/dL 13.0 Hematocrit 36.0 - 46.0 % 39.8 MCV 80.0 - 100.0 fL 89.8 MCH 26.0 - 34.0 pg 29.3 MCHC 30.5 - 36.0 g/dL 32.7 RDW-CV 11.5 - 15.0 % 12.6 Platelet Count 150 - 400 k/uL 199 MPV 9.0 - 12.7 fL 12.7 Neutrophils % % 82.8 Abs Neut 1.45 - 7.50 k/uL 6.05 Lymphocytes % % 6.6 Abs Lymph 1.00 - 4.00 k/uL 0.48 Low Monocytes % % 6.3 Abs Atkinson <0.87 k/uL 0.46 Eosinophils % % 3.6 Abs Eosin <0.46 k/uL 0.26 Basophils % % 0.4 Abs Baso <0.11 k/uL 0.03 Immature Granulocytes % % 0.3 Abs Immature Gran <0.10 k/uL <0.03 NRBC /100 WBC 0.0 Absolute nRBC <0.01 k/uL <0.01 Diff Type Auto Imaging / Diagnostic Studies: CXR 05/2023 at [facility]: PAST MEDICAL HISTORY Diagnosis Date Adverse reaction [...] of complication Mitral valve disorders(424.0) Obesity, unspecified THAIS (obstructive sleep apnea) Osteoarthritis of multiple joints Other and unspecified hyperlipidemia Other seborrheic keratosis 10/12/2006 Rosacea 09/06/2007 Vitamin D deficiency 08/21/2010 ALLERGIES Allergen Reactions Escitalopram Intolerance Fatigued after [...] Upset Nausea Ventolin [Albuterol* GI Upset, Vomiting aspirin, enteric coated (ASPIRIN, ENTERIC COATED) 81 mg EC tablet Take 1 tablet by mouth two times a day. zo (more content not included)... [facility] 09-22-2023 History of Presen t illness Narrative Images from the original note were not included. . Respiratory Dorena Note Patient name: Shereen Seals PCP: Octavio Reza MD CC: Follow-up asthma HPI: Shereen Seals 78 year old female former 10 pack year smoker with PMH significant for HTN, HLD, GERD, DM2, THAIS non-compliant with BiPAP, nocturnal oxygen use, asthma, former patient of Dr. Luu, new to me. History notable for influenza A infection in 2021, resulting in hypoxemia. She was discharged on 2-4 L. She had COVID PNA 07/2022, did not require NIV or intubation, sent to rehab and ultimately discharded to home on supplemental oxygen. Current therapy with Symbicort and as needed albuterol. Most recent oxygen assessment did not show a need for portable oxygen. Overall, overnight oximetry showed oxygen saturation less than 89% hour and 8 minutes 122 desaturation events, lowest oxygen saturation 80%. Patient intolerant of BiPAP. Instructed to use supplemental oxygen at night 2 L. Today she states she has been doing fairly well. She is compliant with use of her inhaled therapy. No need for her rescue inhaler. Main symptom is dyspnea. She denies chronic cough, sputum production or audible wheezing. No recent upper respiratory infections or hospitalization. She has had elevated exhaled nitric oxide levels in the past. Today her exhaled nitric oxide level is normal and pulmonary function test show restriction with small airways obstruction. 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 R Index Finger 30 -- Wheeled Walker NAME: Zora CortesJAI PATIENT NAME: Shereen Seals DATE: June 23, 2023 TIME: 9:38 AM Comment: patient unable to ambulate at a faster pace SERVICE DATE: 06/23/2023 SERVICE TIME: 9:38 AM Oral Exhaled Nitric Oxide measurement: 16.0 (ppb) PFT: Review pulmonary function test showed restriction and small airways obstruction Labs: Component Ref Range & Units 2 wk ago (09/01/23) WBC 3.70 - 11.00 k/uL 7.30 RBC 3.90 - 5.20 m/uL 4.43 Hemoglobin 11.5 - 15.5 g/dL 13.0 Hematocrit 36.0 - 46.0 % 39.8 MCV 80.0 - 100.0 fL 89.8 MCH 26.0 - 34.0 pg 29.3 MCHC 30.5 - 36.0 g/dL 32.7 RDW-CV 11.5 - 15.0 % 12.6 Platelet Count 150 - 400 k/uL 199 MPV 9.0 - 12.7 fL 12.7 Neutrophils % % 82.8 Abs Neut 1.45 - 7.50 k/uL 6.05 Lymphocytes % % 6.6 Abs Lymph 1.00 - 4.00 k/uL 0.48 Low Monocytes % % 6.3 Abs Atkinson <0.87 k/uL 0.46 Eosinophils % % 3.6 Abs Eosin <0.46 k/uL 0.26 Basophils % % 0.4 Abs Baso <0.11 k/uL 0.03 Immature Granulocytes % % 0.3 Abs Immature Gran <0.10 k/uL <0.03 NRBC /100 WBC 0.0 Absolute nRBC <0.01 k/uL <0.01 Diff Type Auto Imaging / Diagnostic Studies: CXR 05/2023 at [facility]: PAST MEDICAL HISTORY Diagnosis Date Adverse reaction [...] of complication Mitral valve disorders(424.0) Obesity, unspecified THAIS (obstructive sleep apnea) Osteoarthritis of multiple joints Other and unspecified hyperlipidemia Other seborrheic keratosis 10/12/2006 Rosacea 09/06/2007 Vitamin D deficiency 08/21/2010 ALLERGIES Allergen Reactions Escitalopram Intolerance Fatigued after [...] Upset Nausea Ventolin [Albuterol* GI Upset, Vomiting aspirin, enteric coated (ASPIRIN, ENTERIC COATED) 81 mg EC tablet Take 1 tablet by mouth two times a day. zolpidem (AMBIEN) 5 mg tablet Take 0.5-1 tablets by mouth at bedtime as needed for up to 90 days. meloxicam (MOBIC) 15 mg tablet Take 1 tablet by mouth once daily. for pain. Take with food. insulin aspart U-100 (NOVOLOG U-100 INSULIN ASPART) 100 unit/mL Inject 3-10 Units subcutaneously three times a day before meals. As directed ramipril (ALTACE) 10 mg capsule Take 1 capsule by mouth two times a day. insulin NPH injection Inject 15-20 Units subcutaneously daily with breakfast. Dispense 6 vials (3 months supply) insulin glargine 100 unit/mL (3 mL) Inject [...] bedtime then wash off in the morning flash glucose sensor (FREESTYLE JULITA 2 SENSOR) kit Apply new sensor every fourteen (14) days to upper arm. L. acidophilus/Bifid. animalis (DAILY PROBIOTIC ORAL) Take 1 capsule by mouth once daily. cholecalciferol, Vitamin D3, (VITAMIN D3) 1,250 mcg (50,000 unit) cap capsule Take 1 capsule by mouth one time a week. Insulin [place], Disposable, (BD ULTRA-FINE FADY PEN NEEDLE) 32 [...] Puffs as instructed two times a day. Social History Tobacco Use Smoking status: Former Packs/day: 0.50 Years: 20.00 Additional pack years: 0.00 Total pack years: 10.00 Types: Cigarettes Quit date: 10/21/1998 Years since quittin.9 Smokeless tobacco: Never Vaping Use Vaping Use: Never used Substance Use Topics Alcohol use: Yes Comment: Rarely Drug use: No FAMILY HISTORY Problem Relation Age of Onset [...] PFRMD 10/13/2010 ESOPHAGOGASTRODUODENOSCOPY TRANSORAL DIAGNOSTIC 01/17/2013 EGD FIXATION OF ANKLE JOINT Right 02/2016 FRACTURE SURGERY HEART CATHETERIZATION 01/2012 HERNIA REPAIR HX IMPLANT MESH OPN HERNIA RPR/DEBRIDEMENT CLOSURE 04/10/2013 LIG/TRNSXJ FLP TUBE ABDL/VAG APPR UNI/BI PAST SURGICAL HISTORY OF 08/24/1992 endometrial biopsy S IMPLANT INTRAOC LENS-HOYA 90s SKIN BX, 1 LESION 01/15/2008 Right mid check TONSILLECTOMY HX childhood PMH, Social history, family history and surgical history reviewed and updated in EMR REVIEW OF SYSTEMS: CONSTITUTIONAL: No fevers, chills, nightsweats, unintended weight loss HEENT: Denies nasal congestion/sinus symptoms, allergy problems. CARDIOVASCULAR: No chest pain, palpitations, orthopnea. Edema PULM: See HPI GI: No dysphagia/odynophagia, problematic reflux MUSC-SKEL: Charcot foot PSY: No concerns regarding depression, anxiety INTEGUMENTARY: No new skin changes or rashes PHYSICAL EXAMINATION: BP 136/68 Pulse 65 Resp 18 Wt 342 lb (155.1kg) SpO2 96% General Appearance: Morbidly obese female, NAD, wheelchair. Skin: Skin color, texture, turgor normal, no suspicious rashes or lesions. Head: Normocephalic, no masses, lesions, tenderness or abnormalities. Eyes: Sclera, conjunctiva normal. Oropharynx: Mask in place. Neck: No masses or adenopathy. Lungs: Not labored, no wheezes or crackles. Heart: Regular rate and rhythm, no murmurs or gallops. Extremities: No clubbing, bilateral leg braces. Assessment/Plan: 1. Mild persistent asthma, uncomplicated -She will continue on Symbicort with as needed albuterol -Updated prescriptions -Monitor Ivette 2. Morbid obesity -Class III obesity, BMI 50 -Aggressive weight loss advised. She will discuss with her PCP -Obesity portends poor control of asthma 3. Obstructive sleep apnea -Continue nocturnal oxygen for now -Patient states she will retry her BiPAP -Weight loss advised Christine Perkins MD Respiratory Dorena documented in this encounter [facility] 09-05-2023 Miscellaneous Notes Patient returned call and went over results, notes from Lydia Grande SENIOR ANALYST MARKET INTELLIGENCE with understanding,. After going over questions with Sed rate and CRP being elevated. Patient wants to stay locally to see Configuration Management Consultant since she is in wheel chair and [...] If she would like to see a gauger delivery I can place a consult. Schedule if [...] Lymph 1.00 - 4.00 k/uL 0.48 (L) Atkinson% % 6.3 Abs Atkinson <0.87 k/uL 0.46 Eosin% % 3.6 Abs [...] able. Thank you. documented in this encounter [facility] 09-01-2023 Note HNO ID: [id number] Author: LYDIA GRANDE APRN.MADELIN Service: ? Author Type: Nurse Specialist Type: [...] Reflux Type I Diabetes Mellitus With Manifestations ([facility]) Essential Hypertension Arthropathy associated with neurological disorder Insomnia, Unspecified Rosacea Debility Charcot Foot Due to Diabetes Mellitus ([facility]) Vitamin D Deficiency Asthma Morbid Obesity With Bmi of 45.0-49.9, Adult ([facility]) Stasis Edema of Both Lower Extremities Adverse Reaction to Hmg-Coa Reductase Inhibitor Chronic Obstructive Asthma With Exacerbation (Hcc) ([facility]) Acute Respiratory Failure With Hypoxia ([facility]) Paroxysmal Svt (Supraventricular Tachycardia) Palpitations Major Depressive Disorder, Recurrent, in Full Remission ([facility]) Presents today regarding hand pain that is [...] Alleviate: advil seemed to help Aggravate: no Gdkg-acq-lschgua: Prior occurrence: no Review of Systems Respiratory: Negative. Musculoskeletal: Positive for arthralgias. Objective BP 144/74 Pulse 64 Resp 16 Wt (!) 156.5 kg (345 lb) SpO2 96% BMI 50.95 kg/m? Physical Exam Vitals and nursing note reviewed. Constitutional: Appearance: Normal appearance. HENT: Head: Normocephalic and atraumatic. Mouth/Throat: Lips: [place]. Mouth: Mucous membranes are moist. Eyes: Conjunctiva/sclera: [...] Nausea Ventolin [Albu (more content not included)... [facility] 09-01-2023 History of Presen t illness [...] Alleviate: advil seemed to help Aggravate: no Mbyg-frd-ebfshul: Prior occurrence: no Review of Systems Respiratory: Negative. Musculoskeletal: Positive for arthralgias. Objective BP 144/74 Pulse 64 Resp 16 Wt (!) 156.5 kg (345 lb) SpO2 96% BMI 50.95 kg/m Physical Exam Vitals and nursing note reviewed. Constitutional: Appearance: Normal appearance. HENT: Head: Normocephalic and atraumatic. Mouth/Throat: Lips: [place]. Mouth: Mucous membranes are moist. Eyes: Conjunctiva/sclera: [...] by mouth one time a week. Insulin [place], Disposable, (BD ULTRA-FINE FADY PEN NEEDLE) 32 [...] be seen sooner for follow-up. Lydia Grande APRN.CNS Medical Decision Making: Problems: Low: Acute, uncomplicated illness or injury Data: Unique test(s) ordered: 3+ Risk: Moderate: Drug management Medical Decision Making Level: 4 - Moderate documented in this encounter [facility] 06-23-2023 Note HNO ID: [id number] Author: Zora Cortes RPFT Service: ? Author [...] DATE: June 23, 2023 TIME: 9:38 AM [facility] 06-23-2023 Note HNO ID: [id number] Author: Zora Cortes RPFT Service: ? Author [...] unable to ambulate at a faster pace [facility] 06-23-2023 Note HNO ID: [id number] Author: Zora Cortes RPFT Service: ? Author Type: Respiratory Therapist Type: Progress Notes Filed: 06/23/2023 9:38 AM Note Text: PULM FUNCTION SMARTBLOCK: Provider: Tierney Helm PA-C Assisting Tech: Zora Cortes RPFT Spirometry: 1 Oximetry - Ambulation: 1 Exhaled Nitric Oxide: 1 [facility] 06-23-2023 Note HNO ID: [id number] Author: Tierney Helm PA-C Service: ? Author Type: Physician Cupboard Builder Type: Progress Notes Filed: 06/24/2023 9:51 AM [...] that time patient has been admitted to [facility] on two occasions. The first being [...] area once hugh (more content not included)... [facility] 06-23-2023 History of Presen t illness [...] that time patient has been admitted to [facility] on two occasions. The first being [...] need supplemental oxygen during the day. DME: [employer] PAST MEDICAL HISTORY Diagnosis Date Adverse reaction [...] (Patient not taking: Reported on 05/23/2023) Insulin [place], Disposable, (BD ULTRA-FINE FADY PEN NEEDLE) 32 [...] 04/18/2017 56.0 (A) PFT, 06/23/2023 CXR, 05/28/2023 [facility] FINDINGS: The lungs are clear and [...] Tierney Helm PA-C documented in this encounter [facility] 06-14-2023 Miscellaneous Notes Patient has [...] Gloria Rand RN. documented in this encounter [facility] 05-23-2023 Note HNO ID: [id number] Author: Octavio Reza MD Service: ? Author Type: Physician Type: Progress Notes Filed: 06/25/2023 10:51 PM Note Text: This note was created using Viralheatriter. Subjective Shereen Seals is a 77 year old female. Patient presents with: F/U 4 month: Labs prior SUBJECTIVE: Shereen Seals is a 77 year old year old lady here today for 4 month follow up appointment for review of medical conditions. Had low sugar this AM at 69. Able to get juice. Reviewed had bad experience at [facility]. Noted saw Dr. Lees. Working on [...] times daily before meals. As directed Insulin [place], Disposable, (BD ULTRA-FINE FADY PEN NEEDLE) 32 [...] 9.5 ). Weight (more content not included)... [facility] 05-23-2023 Instructions Octavio Reza MD - [...] antifungal shampoo [31,32]. documented in this encounter [facility] 05-23-2023 History of Presen t illness Narrative This note was created using Vidly. Subjective Shereen Seals is a 77 year old female. Patient presents with: F/U 4 month: Labs prior SUBJECTIVE: Shereen Seals is a 77 year old year old lady here today for 4 month follow up appointment for review of medical conditions. Had low sugar this AM at 69. Able to get juice. Reviewed had bad experience at [facility]. Noted saw Dr. Lees. Working on [...] times daily before meals. As directed Insulin [place], Disposable, (BD ULTRA-FINE FADY PEN NEEDLE) 32 [...] in adult, unspecified whether serious comorbidity present ([facility]) E66.01 Z68.42 Continue efforts at healthier diet. [...] the date of the service which included oxmi-lf-wtph patient care, completing clinical documentation, obtaining and/or reviewing separately obtained history, performing a medically appropriate examination, counseling and educating the patient/family/caregiver, ordering medications, tests, or procedures, independently interpreting results (not separately reported), and communicating results to the patient/family/caregiver. Octavio Reza MD documented in this encounter [facility] 05-16-2023 Note HNO ID: [id number] Author: Anant Lees MD Service: ? Author Type: Physician Type: Progress Notes Filed: 05/16/2023 10:02 AM Note Text: Anant Lees MD Interventional Cardiology [address] [place] [address] Chief Complaint Patient presents with: New Patient: [...] injection (HumuLIN N,Deidra (more content not included)... [facility] 05-16-2023 History of Presen t illness Narrative Images from the original note were not included. Anant Lees MD Interventional Cardiology [address] [place] [address] Chief Complaint Patient presents with: New Patient: [...] time a week. 12 capsule 4 Insulin [place], Disposable, (BD ULTRA-FINE FADY PEN NEEDLE) 32 [...] correct any errors. documented in this encounter [facility] 03-01-2023 Miscellaneous Notes Okayed LYNN 01/17/23 NOV 05/23/23 Charisse Yu MA Patient [...] advise. Himanshu Bolden documented in this encounter [facility] 02-21-2023 Miscellaneous Notes Printed order and faxed to [facility] as requested. Phoned patient and aware order was faxed as requested. Filed order Fax order as requested Patient calling she had received her reminder from [facility] that she will need new order for 3 D mamm faxed to [phone]. Pending order to file. Please call patient when order has been faxed so she can schedule her appt at [facility]. Please advise documented in this encounter [facility] 01-17-2023 Note HNO ID: [id number] Author: Octavio Reza MD Service: ? Author Type: Physician Type: Progress Notes Filed: 02/21/2023 12:42 AM Note Text: This note was created using Prieto Batteryter. Subjective Shereen Seals is a 77 year [...] past. Noted had a terrible time with [facility] in the hospital. Was bad. Ended [...] up to 90 days. flash glucose sensor (JemstepSTYLE JULITA 2 SENSOR) kit Apply new sensor [...] by mouth once daily as needed. Insulin [place], Disposable, (BD ULTRA-FINE FADY PEN NEEDLE) 32 [...] kg () 02/15/2022 (more content not included)... [facility] 01-17-2023 Instructions Octavio Reza MD - [...] once a week. documented in this encounter [facility] 01-17-2023 History of Presen t illness Narrative This note was created using Prieto Batteryter. Subjective Shereen Selas is a 77 year old female. Patient [...] past. Noted had a terrible time with [facility] in the hospital. Was bad. Ended [...] once daily. insulin glargine (LANTUS SOLOSTAR, BASAGLAR AMIEIKPEN) 100 unit/mL (3 mL) Inject 27 Units [...] by mouth once daily as needed. Insulin [place], Disposable, (BD ULTRA-FINE FADY PEN NEEDLE) 32 [...] which included preparing to see the patient, jrbt-zp-ispp patient care, completing clinical documentation, obtaining and/or reviewing separately obtained history, performing a medically appropriate examination, counseling and educating the patient/family/caregiver, ordering medications, tests, or procedures, independently interpreting results (not separately reported), and communicating results to the patient/family/caregiver. Octavio Reza MD documented in this encounter [facility] 11-12-2022 Note HNO ID: [id number] Author: Davon Wolfe APRN.INTERNAL CONTROLS ANALYST Service: ? Author Type: Nurse Practitioner Type: Progress Notes Filed: 11/12/2022 4:10 PM Note Text: SUBJECTIVE Shereen Seals is a 77 year old female here today for an Er follow up. Chief Complaint Patient presents with: ER F/U: [facility] ER 11/04/22 due to palpitations/weakness HPI Shereen Seals is a 77 year old female established patient of Dr. Reza who presents today for ER follow up. She was seen in ER at [facility] on 11/04/2022 for issues with palpitations and weakness. On oxygen from prior COVID-19 infection. Monitors with a pulse ox, noticing heart rate being low and more irregular and erratic with spo2 monitoring. Referred to see cardiology, following up with [facility], saw Oren in the past. [...] DM Code E10.8, E11.610 Insulin: Yes Insulin [place], Disposable, (BD ULTRA-FINE FADY PEN NEEDLE) 32 [...] PROBLEM LIST Chronic Obstructive Asthma With Exacerbation ([facility]) - 11/12/2022 Acute Respiratory Failure With Hypoxia ([facility]) - 11/12/2022 Paroxysmal Svt (Supraventricular Tachycardia) ([facility]) - 11/12/2022 Adverse Reaction to Hmg-Coa Reductase Inhibitor - 06/07/2022 Comment: Historical: see allergies Stasis Edema of Both Lower Extremities - 04/27/2018 Morbid Obesity With Bmi of 45.0-49.9, Adult ([facility]) - 04/18/2017 Asthma - 05/06/2014 Vitamin D Deficiency - 08/21/2010 Charcot Foot Due to Diabetes Mellitus ([facility]) Debility - 09/30/2009 Rosacea - 09/06/2007 Insomnia, Unspecified - 06/01/2007 Type I Diabetes Mellitus With Manifestations ([facility]) - 09/15/2005 Essential Hypertension - (more content not included)... [facility] 10-05-2022 Note HNO ID: [id number] Author: Davon Wolfe APRN.INTERNAL CONTROLS ANALYST Service: ? Author Type: Nurse Practitioner [...] a sore to her vaginal area. Saw human factors specialist in the past for this, Trudy Verma. Amoxicillin and hot compresses cleared this up in the past. Onset this time was about a week ago. Started with a painful hard lump to the outside skin of the vaginal area. Tried Keflex from human factors specialist due to concerns of medicaiton interactions with [...] by mouth once daily as needed. Insulin [place], Disposable, (BD ULTRA-FINE FADY PEN NEEDLE) 32 [...] Naprosyn [Naproxen] GI (more content not included)... [facility] 10-05-2022 History of Presen t illness [...] a sore to her vaginal area. Saw human factors specialist in the past for this, Trudy Verma. Amoxicillin and hot compresses cleared this up in the past. Onset this time was about a week ago. Started with a painful hard lump to the outside skin of the vaginal area. Tried Keflex from human factors specialist due to concerns of medicaiton interactions with [...] once daily. insulin glargine (LANTUS SOLOSTAR, BASAGLAR AMIEIKPEN) 100 unit/mL (3 mL) Inject 27 Units [...] by mouth once daily as needed. Insulin [place], Disposable, (BD ULTRA-FINE FADY PEN NEEDLE) 32 [...] Morbid Obesity With Bmi of 45.0-49.9, Adult ([facility]) - 04/18/2017 Asthma - 05/06/2014 Vitamin D Deficiency - 08/21/2010 Charcot Foot Due to Diabetes Mellitus ([facility]) Debility - 09/30/2009 Rosacea - 09/06/2007 Insomnia, Unspecified - 06/01/2007 Type I Diabetes Mellitus With Manifestations ([facility]) - 09/15/2005 Essential Hypertension - 09/15/2005 Arthropathy [...] nursing note reviewed. Exam conducted with a chief investment officer present ( present in the room, ok [...] which included preparing to see the patient, foaz-np-veem patient care, completing clinical documentation, obtaining and/or reviewing separately obtained history, performing a medically appropriate examination, counseling and educating the patient/family/caregiver, ordering medications, tests, or procedures, and care coordination (not separately reported). Return if symptoms worsen or fail to improve, for Keep next scheduled appointment.. RACHEL Romero [facility]22 Miscellaneous Notes Noted. We can certainly take a look and decide on what is the best next steps for her. Patient phoned concerned the lump on labia spread to anus. Was seen in [facility] ER on 10-01 per pcp and FIELD CAPTAIN recommendation for lump on labia. Reports ER [...] very concerned. Scheduled same day appt with Cadd Instructor. documented in this encounter [facility] 10-01-2022 Miscellaneous Notes Phoned patient [...] larger, she needs to return to her FIELD CAPTAIN to address the lump getting largerSounds like developing worsening cellulitis and probably abscess--might need incision and drainage if there is an abscess. If she is failing outpatient treatment with oral meds, might need IV antibiotics. Forwarding to Trudy Verma who had been following with her. documented in this encounter [facility] 09-30-2022 Miscellaneous Notes Spoke with [...] OCTAVIO REZA MD Patient calling Trudy Verma SENIOR ANALYST [employer]LL[employer] had her start Cephalexin 500 mg one capsule 4 times daily on 09/27 for her valvar issue and patient said 3 hours later she was noticing her heart was lower and she was more short of breath, her SPO2 was going down. She stopped it after 3 doses. She spoke to FIELD CAPTAIN and restarted medication yesterday and had same reaction 3 hours later. She was asking FIELD CAPTAIN to give her Bactrim rx, Trudy said no that is not what I want you to take. She was told to notify her PCP and see what antibiotic PCP wants to put her on. [facility]. Please advise documented in this encounter [facility] 09-27-2022 Miscellaneous Notes Patient notified. Michelle Wu RN The following approved medication requests have been transmitted electronically. Requested Prescriptions Signed Prescriptions Disp Refills cephALEXin (KEFLEX) 500 mg capsule 28 capsule 0 Sig: Take 1 capsule by mouth four times daily for 7 days. Authorizing Provider: TRUDY VERMA Pharmacy Information Pharmacy Address Telephone [facility] [address] [place] [address] Cephalexin prescribed since Bactrim can raise her potassium level. She should continue the warm compresses. If lump worsens, she will need to be evaluated in the office. Trudy Verma APRN.FABIO Patient called with c/o lump on labia. [...] her last time without being seen. Uses [facility] in [place]. Tierney Guajardo RN documented in this encounter [facility] 09-21-2022 Miscellaneous Notes Was addressed [...] that she is following now. Liliana with [facility] calling to see if there is a base rate or base rate sliding scale for the Lispro insulin and Aspart insulin . Please advise. Cayla Lynne LPN documented in this encounter [facility] 09-14-2022 Miscellaneous Notes Patient notified. Destinee Sims LPN ----- Message from Octavio Reza MD sent at 09/14/2022 8:42 AM EST ----- CBC within normal limits documented in this encounter [facility] 09-07-2022 Instructions Octavio Reza MD - [...] sugar or dehydration. documented in this encounter [facility] 09-07-2022 History of Presen t illness Narrative This note was created using Vidly. Subjective Shereen Seals is a 77 year [...] by mouth once daily as needed. Insulin [place], Disposable, (BD ULTRA-FINE FADY PEN NEEDLE) 32 [...] the date of the service which included [id number] patient care, completing clinical documentation, performing a medically appropriate examination, and counseling and educating the patient/family/caregiver. Octavio Reza MD documented in this encounter [facility] 09-01-2022 Miscellaneous Notes Noted Arleen Toure APRN.CNP Hubert from [facility] calling discharging patient from OT today patient has met all goals. documented in this encounter [facility] 09-01-2022 Miscellaneous Notes Rekha PT with [facility] called and is notified of providers message and instructions. She voices understanding. Parris Eckert RN Ok for [facility] plan, see below Rekha PT with [facility] called in her POC. She reports she [...] a confidential number. documented in this [facility] 08-21-2022 Miscellaneous Notes Noted [facility]- OT- [facility] - reporting POC: saw patient today for OT eval, and will see patient 1 x week for 3 weeks. documented in this encounter [facility] 08-17-2022 Instructions Octavio Reza MD [...] at night too. documented in this [facility] 08-17-2022 History of Presen t illness Narrative This note was created using Viralheatriter. Subjective Shereen Seals is a 77 year old female. Patient presents with: Hospital F/U: Follow up [facility] and [facility] discharge SUBJECTIVE: Shereen Seals is a 77 year old year old lady here today for follow up appointment for review of medical conditions. Discharged from [facility] after hospitalization at [facility] twice. Noted sugars have been running high since they changed her insulin at [facility]. Current probiotic causing constipation. Prefers Symbicort since [...] by mouth once daily as needed. Insulin [place], Disposable, (BD ULTRA-FINE FADY PEN NEEDLE) 32 [...] the date of the service which included [id number]-iyeq patient care, completing clinical documentation, obtaining and/or reviewing separately obtained history, performing a medically appropriate examination, counseling and educating the patient/family/caregiver, and ordering medications, tests, or procedures. Octavio Reza MD documented in this [facility] 2022 Miscellaneous Notes Noted, agree Charisse, a nurse with [facility] calling to update Dr. Reza that pt's called and notified [facility] that he was to give pt 2 units of insulin according to sliding scale today, however he accidentally gave pt 6 units. Charisse states she instructed to give pt 2-3 crackers with peanut butter and a small glass of orange juice and check pt's blood sugar in approximately 30 minutes. Pt is also getting ready to eat lunch. was advised to call [facility] for any further concerns. No call back needed, if PCP agreeable with instructions given to pt's . Thank you. documented in this [facility] 07-29-2022 Miscellaneous Notes noted Bonnie OT from [facility] calls and states that patient requested only a one time visit. They worked on home safety and equipment recommendations. Patient is overwhelmed currently and told Bonnie that if patient thinks she needs Bonnie again in a couple of weeks she will give her a call. Darlene Mena RN documented in this encounter [facility] 07-29-2022 Miscellaneous Notes This Sw sent message back to TAMARA 07/26/22 note, in regards to SW order. [facility] has their own SW that makes home visits. This Sw believes that [facility] was looking for order for their own Sw to go and see patient. This SW does not provide home visits. documented in this [facility] 07-28-2022 Miscellaneous Notes Addended by: DAVON WOLFE on: 07/28/2022 10:31 AM Modules accepted: Orders If patient agreeable can wait and discuss endocrine versus PharmD referral at her follow up next week. Okay for a referral for SW per request in prior encounter, I will put in the order. From prior message: Marilyn RN calling from [facility] to report plan of care for patient and Long Term will visit patient 3 times a week for first week, 2 times a week for 2 weeks and 1 time a week for 3 weeks. [facility]P will work with patient on diabetes education and food education. Marilyn states that patient only takes medications when she wants to take medications. Patients blood sugars was in 400's on Tuesday, Tuesday 300's, and this morning 250. Patient is currently taking insulins they way she is supposed to to be taking them. Marilyn has been calling before each meal. [facility] faxed over updated medication list as [...] work with PharmD through [facility] instead of generation manager. How are her sugars running? 3) Can reschedule follow up Renu calling back to check status on message below. Cayla Lynne LPN Renu, a [facility] nurse calling Dr. Reza with a [...] to poor blood sugar control? Pt told HH Nurse that she did not see eye-to-eye with past generation manager. Lastly, during this call, this nurse noted pt was to have appt with PCP today but pt states she was not told about this appt. Please advise Renu at [phone]. Thank you. documented in this [facility] 07-28-2022 Miscellaneous Notes Patient has [...] Cecy Brush LPN documented in this [facility] 07-26-2022 Miscellaneous Notes Noted, agree David PT calling from [facility] to report plan of care for patient and physical therapy will visit patient 2 times a week for 3 weeks. Physical therapy will work with patient on functional mobility training. No Call back needed if agreeable, Darlene Mena RN documented in this [facility] 07-19-2022 Miscellaneous Notes Below noted [...] she gets plenty of liquids. Urine is circuit manager now. Does have a moist cough, but improved since hospital stay. No fever. BS this morning 229, which is much improved since hospital (BS ran 400's). Patient reports her fingers have been cold when taking POX reading, and will make sure they are warm before checking POX. Also has pink fingernail latvian on, and will remove from one finger [...] Please advise patient. documented in this [facility] 07-16-2022 Miscellaneous Notes Reason for Call: elevated blood sugar of 304, disoriented, sob, 02 sat is 86-89% while using oxygen Outcome: Pt and her both advised to call 911 now. They both agree. Reason for Disposition Acting confused (e.g., disoriented, slurred speech) Protocols used: Diabetes - High Blood [id number] Pt reports her blood sugar was elevated [...] call 911 now. documented in this [facility] 06-21-2022 Miscellaneous Notes Last office [...] patient. Payton Soliman documented in this [facility] 06-07-2022 History of Presen t [...] Vladimir Kitchen Associated attestation - Narendra Nolasco, [facility] - 06/07/2022 3:49 PM EST The [...] MEd, BCPS, CDCES documented in this encounter [facility] 06-07-2022 Miscellaneous Notes Noted, agree. [...] Pattie Giles RN documented in this encounter [facility] 05-18-2022 Miscellaneous Notes Ordered during appointment Pt has an appointment with provider on 05/18/22. Pt is asking if provider wanted labs ordered. Please call Pt once labs are placed. documented in this [facility] 05-18-2022 History of Presen t illness Narrative This note was created using Viralheatriter. Subjective Shereen Seals is a 76 year [...] Swelling overall controlled Follows with Dr. Marin (digital recruiter) every 2 months. Has HCDPOA and LW. [...] 1 capsule by mouth twice daily. Insulin [place], Disposable, (BD ULTRA-FINE FADY PEN NEEDLE) 32 [...] Octavio Reza MD documented in this [facility] 04-03-2022 Miscellaneous Notes See previous TE with same request for vials. Awaiting insurance authorization to dispense. Pattie Giles RN Patient call sent from [facility] as a refill, but when speaking with patient she said her late night shots with Humalin are a nightmare and would like to go back on vials. Please address this with patient. Call sent to triage nurse after speaking with patient. documented in this [facility] 04-03-2022 Miscellaneous Notes Pt calling with request for a prescription for Humalog Vials. Patient denies any new or worsening symptoms of which a provider is not aware: Yes. Conference pt to Dr. Reza's office for assistant athletic trainer with prescription. documented in this [facility] 03-31-2022 Miscellaneous Notes The following [...] as directed Authorizing Provider: OCTAVIO REZA MD [facility] called in and reports that Pts [...] Asmita Tapia RN documented in this [facility] 02-15-2022 Instructions Lydia Grande APRN.CNS - 02/15/2022 3:06 PM EDT Decrease caffeine intake. Drink plenty of fluids. Think about the CGM - continuous glucose monitor. documented in this [facility] 02-15-2022 History of Presen t [...] Both Lower Extremities She was seen at [facility] emergency department on February 11, 2022 [...] to follow-up with PCP as needed. Sees [facility] provider, Areli Estevez. HTN: She [...] HENT: Head: Normocephalic and atraumatic. Mouth/Throat: Lips: [place]. Mouth: Mucous membranes are moist. Eyes: Conjunctiva/sclera: [...] DM Code E10.8, E11.610 Insulin: Yes Insulin [place], Disposable, (BD ULTRA-FINE FADY PEN NEEDLE) 32 [...] CGM - continuous glucose monitor. Lydia Grande APRN.DIRECTIONAL SURVEY DRAFTER documented in this encounter [facility] 02-11-2022 Miscellaneous Notes Noted Reasonable for her to have her theatre arts professor decide on plan of care for noted [...] Patient said she was going to call Deli/Bakery Associate office, Dr Lott before she would go to the ER. documented in this [facility] 01-21-2022 Miscellaneous Notes Order faxed to [facility] scheduling. ok Patient calls and is asking about mammogram order. Please place order and fax to [facility]. Please review and advise, Darlene Mena RN documented in this [facility] 01-11-2022 History of Presen t illness Narrative Images from the original note were not included. This note was created using Viralheatriter. Subjective Shereen Seals is a 76 year [...] Lantus, not Basaglar per patient preference Insulin [place], Disposable, (BD ULTRA-FINE FADY PEN NEEDLE) 32 [...] Octavio Reza MD documented in this [facility] 12-23-2021 History of Presen t illness Narrative This note was created using NoteWriter. Subjective Patient presents with: Abdominal Pain PCP [...] ([facility]) Stasis Edema of Both Lower Extremities Current [...] Lantus, not Basaglar per patient preference Insulin [place], Disposable, (BD ULTRA-FINE FADY PEN NEEDLE) 32 [...] (FLONASE) 50 mcg/actuation nasal spray Use 1 [place] in each nostril once daily. (Patient not [...] Guillermo Maurer MD documented in this [facility] 12-17-2021 Instructions Kristyn Flores - [...] 3 days. - CONSULT PANEL TO ORTHOPAEDICS RNEATA Prado student SPRAINS AND STRAINS BASIC INFORMATION [...] bruising increases, despite treatment. Copyright 1994 by [employer] documented in this [facility] 12-17-2021 History of Presen t [...] history is provided by the patient. No cross roller was used. Arm Pain The pain is [...] (FLONASE) 50 mcg/actuation nasal spray Use 1 [place] in each nostril once daily. blood sugar [...] Lantus, not Basaglar per patient preference Insulin [place], Disposable, (BD ULTRA-FINE FADY PEN NEEDLE) 32 [...] AP/LAT RIGHT Radiologist IMPRESSION: No acute process. Hearing Care Professional: EVIE Transcribe Date/Time: Dec 17 2021 1:44P Dictated by : CECY REYES MD - X-ray is negative for fracture. - Wear compression wrap and sling as needed for comfort. May remove at night. - Take Ibuprofen as needed for pain. - Follow up with orthopedics if pain worsens or persists past 3 days. - CONSULT PANEL TO ORTHOPAEDICS RENATA Prado student TEACHING PROVIDER (Physician/PA/DATE PITTER) NOTE OF PERSONAL INVOLVEMENT IN CARE: I have personally seen and examined the patient and performed the medical decision-making components. I have reviewed the Advanced Practice Registered Nurse (DATE PITTER) Student's documentation and verified the findings in the note as written. Any additions or changes are noted in bold/italics. Signature: Wanda Phillips Date: 12/17/2021 Time: 2:06 PM documented in this [facility] 12-17-2021 Miscellaneous Notes noted, agree should be seen Patient calling with request for an x ray of her arm. She states she strained her upper arm when she lifted a heavy pot of water. She feels pain in the bicep area of her right arm. Advised Urgent Care evaluation. She is agreeable. Rochelle Hoyt RN documented in this [facility] 12-16-2021 History of Presen t [...] 2021 9:40 AM documented in this [facility] 12-16-2021 Miscellaneous Notes Verified name and date of . Patient phones requesting refills as follows: Pending Prescriptions Disp Refills BUDESONIDE-FORMOTEROL HFA 160 MCG-4.5 MCG/ACTUATION AEROSOL INHALER 1 Each 5 Sig: Inhale 2 Puffs as instructed twice daily. VITALY: No Verified pharmacy to be reordered at. Please review and advise. Eleni Serrano LPN documented in this encounter [facility] 12-04-2021 Miscellaneous Notes Noted, agree [...] will call back. documented in this encounter [facility] 11-06-2021 Miscellaneous Notes Spoke to Dr Carmichael and updated patient on results, To repeat colonoscopy in 5 years. Patient called asking for results from colonoscopy. [phone] documented in this encounter [facility] 10-29-2021 Nurse Note Abdomen soft non-distended. Will continue to monitor. [facility] PRE-OP NURSING HAND OFF NOTE SBAR Hand off given to Eris Mena RN. Hand off was communicated verbally and at the patient's bedside and all questions were answered. Amanda Santiago RN documented in this [facility] 10-29-2021 History and physical note [...] INTRAOC LENS-HOYA 90s SKIN BX, 1 LESION 6/30/08 Right mid check TONSILLECTOMY HX childhood CURRENT [...] (FLONASE) 50 mcg/actuation nasal spray Use 1 [place] in each nostril once daily. blood sugar [...] Lantus, not Basaglar per patient preference Insulin [place], Disposable, (BD ULTRA-FINE FADY PEN NEEDLE) 32 [...] entered by the nurse and reviewed by de Nursing Notes: Serina Catherine RN 09/21/2021 3:38 [...] TIME: 7:53 AM documented in this [facility] 10-27-2021 Miscellaneous Notes Spoke with [...] Rakel Agosto LPN documented in this [facility] 10-27-2021 Miscellaneous Notes noted, recent [...] Radha Lacy RN documented in this [facility] 10-26-2021 Miscellaneous Notes Patient was [...] PM 159/79 10-04-21 AM 154/85 PM 149/81 10-05-21 AM 136/72 PM 143/67 10-06-21 AM 144/70 PM 157/82 10-07-21 AM 144/74 PM 155/78 10-08-21 AM 149/78 PM 158/83 10-09-21 AM 150/81 PM 147/80 10-10-21 AM 157/78 10-11-21 AM 154/80 PM 158/87 10-18-21 AM 161/84 PM 152/83 10-19-21 AM 144/77 [...] Cayla Lynne LPN documented in this [facility] 10-26-2021 Miscellaneous Notes Spoke with [...] prior to procedure. Please advise patient. PH: [phone]. Thank you. documented in this [facility] 10-22-2021 Miscellaneous Notes Patient has [...] Asmita Tapia RN documented in this [facility] 09-22-2021 Miscellaneous Notes 10-29-2021 [facility] documented in this encounter [facility] 09-11-2021 History of Presen t illness Narrative This note was created using Viralheatriter. Subjective Shereen Seals is a 76 year [...] (FLONASE) 50 mcg/actuation nasal spray Use 1 [place] in each nostril once daily. blood sugar [...] Lantus, not Basaglar per patient preference Insulin [place], Disposable, (BD ULTRA-FINE FADY PEN NEEDLE) 32 [...] Octavio Reza MD [facility] documented as of this encounter (statuses as of 10/22/2021) [facility] of Past [facility] Narrative* Problem Noted Date Resolved Date OVERWEIGHT 05/11/2021 Last Assessment & Plan: Has made dietary changes since recent hospitalization, decreased carbs, feels better, plans to work harder on wt loss. Getting 3 wheeled bike so she can go on trails, not just exercise bike indoors. documented as of this encounter (statuses as of 10/26/2021) [facility] of [facility] Narrative* Problem Noted Date Resolved Date OVERWEIGHT 05/11/2021 Last Assessment & Plan: Has made dietary changes since recent hospitalization, decreased carbs, feels better, plans to work harder on wt loss. Getting 3 wheeled bike so she can go on trails, not just exercise bike indoors. documented as of this encounter (statuses as of 10/27/2021) [facility] of [facility] Narrative* Problem Noted Date Resolved Date OVERWEIGHT 05/11/2021 Last Assessment & Plan: Has made dietary changes since recent hospitalization, decreased carbs, feels better, plans to work harder on wt loss. Getting 3 wheeled bike so she can go on trails, not just exercise bike indoors. documented as of this encounter (statuses as of 10/30/2021) [facility] of [facility] Narrative* Problem Noted Date Resolved Date OVERWEIGHT 05/11/2021 Last Assessment & Plan: Has made dietary changes since recent hospitalization, decreased carbs, feels better, plans to work harder on wt loss. Getting 3 wheeled bike so she can go on trails, not just exercise bike indoors. documented as of this encounter (statuses as of 11/02/2021) [facility] of [facility] Narrative* Problem Noted Date Resolved Date OVERWEIGHT 05/11/2021 Last Assessment & Plan: Has made dietary changes since recent hospitalization, decreased carbs, feels better, plans to work harder on wt loss. Getting 3 wheeled bike so she can go on trails, not just exercise bike indoors. documented as of this encounter (statuses as of 11/06/2021) [facility] of [facility] Narrative* Problem Noted Date Resolved Date OVERWEIGHT 05/11/2021 Last Assessment & Plan: Has made dietary changes since recent hospitalization, decreased carbs, feels better, plans to work harder on wt loss. Getting 3 wheeled bike so she can go on trails, not just exercise bike indoors. documented as of this encounter (statuses as of 12/07/2021) [facility] of [facility] Narrative* Problem Noted Date Resolved Date OVERWEIGHT 05/11/2021 Last Assessment & Plan: Has made dietary changes since recent hospitalization, decreased carbs, feels better, plans to work harder on wt loss. Getting 3 wheeled bike so she can go on trails, not just exercise bike indoors. documented as of this encounter (statuses as of 12/16/2021) [facility] of Past illness Narrative* Problem Noted Date Resolved Date OVERWEIGHT 05/11/2021 Last Assessment & Plan: Has made dietary changes since recent hospitalization, decreased carbs, feels better, plans to work harder on wt loss. Getting 3 wheeled bike so she can go on trails, not just exercise bike indoors. documented as of this encounter (statuses as of 12/16/2021) [facility] History of Past illness Narrative* Problem Noted Date Resolved Date OVERWEIGHT 05/11/2021 Last Assessment & Plan: Has made dietary changes since recent hospitalization, decreased carbs, feels better, plans to work harder on wt loss. Getting 3 wheeled bike so she can go on trails, not just exercise bike indoors. documented as of this encounter (statuses as of 12/17/2021) [facility] History of Past illness Narrative* Problem Noted Date Resolved Date OVERWEIGHT 05/11/2021 Last Assessment & Plan: Has made dietary changes since recent hospitalization, decreased carbs, feels better, plans to work harder on wt loss. Getting 3 wheeled bike so she can go on trails, not just exercise bike indoors. documented as of this encounter (statuses as of 12/17/2021) [facility] History of Past illness Narrative* Problem Noted Date Resolved Date OVERWEIGHT 05/11/2021 Last Assessment & Plan: Has made dietary changes since recent hospitalization, decreased carbs, feels better, plans to work harder on wt loss. Getting 3 wheeled bike so she can go on trails, not just exercise bike indoors. documented as of this encounter (statuses as of 12/17/2021) [facility] History of Past illness Narrative* Problem Noted Date Resolved Date OVERWEIGHT 05/11/2021 Last Assessment & Plan: Has made dietary changes since recent hospitalization, decreased carbs, feels better, plans to work harder on wt loss. Getting 3 wheeled bike so she can go on trails, not just exercise bike indoors. documented as of this encounter (statuses as of 12/24/2021) [facility] History of Past illness Narrative* Problem Noted Date Resolved Date OVERWEIGHT 05/11/2021 Last Assessment & Plan: Has made dietary changes since recent hospitalization, decreased carbs, feels better, plans to work harder on wt loss. Getting 3 wheeled bike so she can go on trails, not just exercise bike indoors. documented as of this encounter (statuses as of 01/04/2022) [facility] History of Past illness Narrative* Problem Noted Date Resolved Date OVERWEIGHT 05/11/2021 Last Assessment & Plan: Has made dietary changes since recent hospitalization, decreased carbs, feels better, plans to work harder on wt loss. Getting 3 wheeled bike so she can go on trails, not just exercise bike indoors. documented as of this encounter (statuses as of 01/21/2022) [facility] History of Past illness Narrative* Problem Noted Date Resolved Date OVERWEIGHT 05/11/2021 Last Assessment & Plan: Has made dietary changes since recent hospitalization, decreased carbs, feels better, plans to work harder on wt loss. Getting 3 wheeled bike so she can go on trails, not just exercise bike indoors. documented as of this encounter (statuses as of 02/11/2022) [facility] of Past illness Narrative* Problem Noted Date Resolved Date OVERWEIGHT 05/11/2021 Last Assessment & Plan: Has made dietary changes since recent hospitalization, decreased carbs, feels better, plans to work harder on wt loss. Getting 3 wheeled bike so she can go on trails, not just exercise bike indoors. documented as of this encounter (statuses as of 02/15/2022) [facility] History of Past illness Narrative* Problem Noted Date Resolved Date OVERWEIGHT 05/11/2021 Last Assessment & Plan: Has made dietary changes since recent hospitalization, decreased carbs, feels better, plans to work harder on wt loss. Getting 3 wheeled bike so she can go on trails, not just exercise bike indoors. documented as of this encounter (statuses as of 03/14/2022) [facility] History of Past illness Narrative* Problem Noted Date Resolved Date OVERWEIGHT 05/11/2021 Last Assessment & Plan: Has made dietary changes since recent hospitalization, decreased carbs, feels better, plans to work harder on wt loss. Getting 3 wheeled bike so she can go on trails, not just exercise bike indoors. documented as of this encounter (statuses as of 04/01/2022) [facility] History of Past illness Narrative* Problem Noted Date Resolved Date OVERWEIGHT 05/11/2021 Last Assessment & Plan: Has made dietary changes since recent hospitalization, decreased carbs, feels better, plans to work harder on wt loss. Getting 3 wheeled bike so she can go on trails, not just exercise bike indoors. documented as of this encounter (statuses as of 04/03/2022) [facility] History of Past illness Narrative* Problem Noted Date Resolved Date OVERWEIGHT 05/11/2021 Last Assessment & Plan: Has made dietary changes since recent hospitalization, decreased carbs, feels better, plans to work harder on wt loss. Getting 3 wheeled bike so she can go on trails, not just exercise bike indoors. documented as of this encounter (statuses as of 05/18/2022) [facility] of Past illness Narrative* Problem Noted Date Resolved Date OVERWEIGHT 05/11/2021 Last Assessment & Plan: Has made dietary changes since recent hospitalization, decreased carbs, feels better, plans to work harder on wt loss. Getting 3 wheeled bike so she can go on trails, not just exercise bike indoors. documented as of this encounter (statuses as of 06/07/2022) [facility] of Past illness Narrative* Problem Noted Date Resolved Date OVERWEIGHT 05/11/2021 Last Assessment & Plan: Has made dietary changes since recent hospitalization, decreased carbs, feels better, plans to work harder on wt loss. Getting 3 wheeled bike so she can go on trails, not just exercise bike indoors. documented as of this encounter (statuses as of 06/07/2022) [facility] of Past illness Narrative* Problem Noted Date Resolved Date OVERWEIGHT 05/11/2021 Last Assessment & Plan: Has made dietary changes since recent hospitalization, decreased carbs, feels better, plans to work harder on wt loss. Getting 3 wheeled bike so she can go on trails, not just exercise bike indoors. documented as of this encounter (statuses as of 06/14/2022) [facility] of Past illness Narrative* Problem Noted Date Resolved Date OVERWEIGHT 05/11/2021 Last Assessment & Plan: Has made dietary changes since recent hospitalization, decreased carbs, feels better, plans to work harder on wt loss. Getting 3 wheeled bike so she can go on trails, not just exercise bike indoors. documented as of this encounter (statuses as of 06/21/2022) [facility] of Past illness Narrative* Problem Noted Date Resolved Date OVERWEIGHT 05/11/2021 Last Assessment & Plan: Has made dietary changes since recent hospitalization, decreased carbs, feels better, plans to work harder on wt loss. Getting 3 wheeled bike so she can go on trails, not just exercise bike indoors. documented as of this encounter (statuses as of 07/22/2022) [facility] of Past illness Narrative* Problem Noted Date Resolved Date OVERWEIGHT 05/11/2021 Last Assessment & Plan: Has made dietary changes since recent hospitalization, decreased carbs, feels better, plans to work harder on wt loss. Getting 3 wheeled bike so she can go on trails, not just exercise bike indoors. documented as of this encounter (statuses as of 07/27/2022) [facility] of Past illness Narrative* Problem Noted Date Resolved Date OVERWEIGHT 05/11/2021 Last Assessment & Plan: Has made dietary changes since recent hospitalization, decreased carbs, feels better, plans to work harder on wt loss. Getting 3 wheeled bike so she can go on trails, not just exercise bike indoors. documented as of this encounter (statuses as of 07/28/2022) [facility] of Past illness Narrative* Problem Noted Date Resolved Date OVERWEIGHT 05/11/2021 Last Assessment & Plan: Has made dietary changes since recent hospitalization, decreased carbs, feels better, plans to work harder on wt loss. Getting 3 wheeled bike so she can go on trails, not just exercise bike indoors. documented as of this encounter (statuses as of 07/28/2022) [facility] History of Past illness Narrative* Problem Noted Date Resolved Date OVERWEIGHT 05/11/2021 Last Assessment & Plan: Has made dietary changes since recent hospitalization, decreased carbs, feels better, plans to work harder on wt loss. Getting 3 wheeled bike so she can go on trails, not just exercise bike indoors. documented as of this encounter (statuses as of 07/29/2022) [facility] of Past illness Narrative* Problem Noted Date Resolved Date OVERWEIGHT 05/11/2021 Last Assessment & Plan: Has made dietary changes since recent hospitalization, decreased carbs, feels better, plans to work harder on wt loss. Getting 3 wheeled bike so she can go on trails, not just exercise bike indoors. documented as of this encounter (statuses as of 2022) [facility] of Past illness Narrative* Problem Noted Date Resolved Date OVERWEIGHT 05/11/2021 Last Assessment & Plan: Has made dietary changes since recent hospitalization, decreased carbs, feels better, plans to work harder on wt loss. Getting 3 wheeled bike so she can go on trails, not just exercise bike indoors. documented as of this encounter (statuses as of 08/23/2022) [facility] of Past [facility] Narrative* Problem Noted Date Resolved Date OVERWEIGHT 05/11/2021 Last Assessment & Plan: Has made dietary changes since recent hospitalization, decreased carbs, feels better, plans to work harder on wt loss. Getting 3 wheeled bike so she can go on trails, not just exercise bike indoors. documented as of this encounter (statuses as of 09/01/2022) [facility] of Past [facility] Narrative* Problem Noted Date Resolved Date OVERWEIGHT 05/11/2021 Last Assessment & Plan: Has made dietary changes since recent hospitalization, decreased carbs, feels better, plans to work harder on wt loss. Getting 3 wheeled bike so she can go on trails, not just exercise bike indoors. documented as of this encounter (statuses as of 09/02/2022) [facility] of Past [facility] Narrative* Problem Noted Date Resolved Date OVERWEIGHT 05/11/2021 Last Assessment & Plan: Has made dietary changes since recent hospitalization, decreased carbs, feels better, plans to work harder on wt loss. Getting 3 wheeled bike so she can go on trails, not just exercise bike indoors. documented as of this encounter (statuses as of 09/08/2022) [facility] of Past [facility] Narrative* Problem Noted Date Resolved Date OVERWEIGHT 05/11/2021 Last Assessment & Plan: Has made dietary changes since recent hospitalization, decreased carbs, feels better, plans to work harder on wt loss. Getting 3 wheeled bike so she can go on trails, not just exercise bike indoors. documented as of this encounter (statuses as of 09/14/2022) [facility] of Past [facility] Narrative* Problem Noted Date Resolved Date OVERWEIGHT 05/11/2021 Last Assessment & Plan: Has made dietary changes since recent hospitalization, decreased carbs, feels better, plans to work harder on wt loss. Getting 3 wheeled bike so she can go on trails, not just exercise bike indoors. documented as of this encounter (statuses as of 09/20/2022) [facility] of Past [facility] Narrative* Problem Noted Date Resolved Date OVERWEIGHT 05/11/2021 Last Assessment & Plan: Has made dietary changes since recent hospitalization, decreased carbs, feels better, plans to work harder on wt loss. Getting 3 wheeled bike so she can go on trails, not just exercise bike indoors. documented as of this encounter (statuses as of 09/21/2022) [facility] of Past illness Narrative* Problem Noted Date Resolved Date OVERWEIGHT 05/11/2021 Last Assessment & Plan: Has made dietary changes since recent hospitalization, decreased carbs, feels better, plans to work harder on wt loss. Getting 3 wheeled bike so she can go on trails, not just exercise bike indoors. documented as of this encounter (statuses as of 09/27/2022) [facility] of Past [facility] Narrative* Problem Noted Date Resolved Date OVERWEIGHT 05/11/2021 Last Assessment & Plan: Has made dietary changes since recent hospitalization, decreased carbs, feels better, plans to work harder on wt loss. Getting 3 wheeled bike so she can go on trails, not just exercise bike indoors. documented as of this encounter (statuses as of 10/01/2022) [facility] Past [facility] Narrative* Problem Noted Date Resolved Date OVERWEIGHT 05/11/2021 Last Assessment & Plan: Has made dietary changes since recent hospitalization, decreased carbs, feels better, plans to work harder on wt loss. Getting 3 wheeled bike so she can go on trails, not just exercise bike indoors. documented as of this encounter (statuses as of 10/01/2022) [facility] Narrative* Problem Noted Date Resolved Date OVERWEIGHT 05/11/2021 Last Assessment & Plan: Has made dietary changes since recent hospitalization, decreased carbs, feels better, plans to work harder on wt loss. Getting 3 wheeled bike so she can go on trails, not just exercise bike indoors. documented as of this encounter (statuses as of 10/05/2022) [facility] Narrative* Problem Noted Date Resolved Date OVERWEIGHT 05/11/2021 Last Assessment & Plan: Has made dietary changes since recent hospitalization, decreased carbs, feels better, plans to work harder on wt loss. Getting 3 wheeled bike so she can go on trails, not just exercise bike indoors. documented as of this encounter (statuses as of 10/07/2022) [facility] Narrative* Problem Noted Date Diagnosed Date Resolved Date OVERWEIGHT 05/11/2021 Last Assessment & Plan: Has made dietary changes since recent hospitalization, decreased carbs, feels better, plans to work harder on wt loss. Getting 3 wheeled bike so she can go on trails, not just exercise bike indoors. documented as of this encounter (statuses as of 02/21/2023) [facility] Narrative* Problem Noted Date Diagnosed Date Resolved Date OVERWEIGHT 05/11/2021 Last Assessment & Plan: Has made dietary changes since recent hospitalization, decreased carbs, feels better, plans to work harder on wt loss. Getting 3 wheeled bike so she can go on trails, not just exercise bike indoors. documented as of this encounter (statuses as of 02/21/2023) [facility] of Past [facility] Narrative* Problem Noted Date Diagnosed Date Resolved Date OVERWEIGHT 05/11/2021 Last Assessment & Plan: Has made dietary changes since recent hospitalization, decreased carbs, feels better, plans to work harder on wt loss. Getting 3 wheeled bike so she can go on trails, not just exercise bike indoors. documented as of this encounter (statuses as of 03/01/2023) [facility] of Past [facility] Narrative* Problem Noted Date Diagnosed Date Resolved Date OVERWEIGHT 05/11/2021 Last Assessment & Plan: Has made dietary changes since recent hospitalization, decreased carbs, feels better, plans to work harder on wt loss. Getting 3 wheeled bike so she can go on trails, not just exercise bike indoors. documented as of this encounter (statuses as of 05/16/2023) [facility] Narrative* Problem Noted Date Diagnosed Date Resolved Date OVERWEIGHT 05/11/2021 Last Assessment & Plan: Has made dietary changes since recent hospitalization, decreased carbs, feels better, plans to work harder on wt loss. Getting 3 wheeled bike so she can go on trails, not just exercise bike indoors. documented as of this encounter (statuses as of 06/15/2023) [facility] Past [facility] Narrative* Problem Noted Date Diagnosed Date Resolved Date OVERWEIGHT 05/11/2021 Last Assessment & Plan: Has made dietary changes since recent hospitalization, decreased carbs, feels better, plans to work harder on wt loss. Getting 3 wheeled bike so she can go on trails, not just exercise bike indoors. documented as of this encounter (statuses as of 06/23/2023) [facility] Narrative* Problem Noted Date Diagnosed Date Resolved Date OVERWEIGHT 05/11/2021 Last Assessment & Plan: Has made dietary changes since recent hospitalization, decreased carbs, feels better, plans to work harder on wt loss. Getting 3 wheeled bike so she can go on trails, not just exercise bike indoors. documented as of this encounter (statuses as of 06/24/2023) [facility] Narrative* Problem Noted Date Diagnosed Date Resolved Date OVERWEIGHT 05/11/2021 Last Assessment & Plan: Has made dietary changes since recent hospitalization, decreased carbs, feels better, plans to work harder on wt loss. Getting 3 wheeled bike so she can go on trails, not just exercise bike indoors. documented as of this encounter (statuses as of 06/26/2023) [facility] Narrative* Problem Noted Date Diagnosed Date Resolved Date OVERWEIGHT 05/11/2021 Last Assessment & Plan: Has made dietary changes since recent hospitalization, decreased carbs, feels better, plans to work harder on wt loss. Getting 3 wheeled bike so she can go on trails, not just exercise bike indoors. documented as of this encounter (statuses as of 09/01/2023) [facility] Narrative* Problem Noted Date Diagnosed Date Resolved Date OVERWEIGHT 05/11/2021 Last Assessment & Plan: Has made dietary changes since recent hospitalization, decreased carbs, feels better, plans to work harder on wt loss. Getting 3 wheeled bike so she can go on trails, not just exercise bike indoors. documented as of this encounter (statuses as of 09/05/2023) [facility]* Problem Noted Date Diagnosed Date Resolved Date OVERWEIGHT 05/11/2021 Last Assessment & Plan: Has made dietary changes since recent hospitalization, decreased carbs, feels better, plans to work harder on wt loss. Getting 3 wheeled bike so she can go on trails, not just exercise bike indoors. documented as of this encounter (statuses as of 09/22/2023) [facility]* Problem Noted Date Diagnosed Date Resolved Date OVERWEIGHT 05/11/2021 Last Assessment & Plan: Has made dietary changes since recent hospitalization, decreased carbs, feels better, plans to work harder on wt loss. Getting 3 wheeled bike so she can go on trails, not just exercise bike indoors. documented as of this encounter (statuses as of 09/23/2023) [facility]* Problem Noted Date Diagnosed Date Resolved Date OVERWEIGHT 05/11/2021 Last Assessment & Plan: Has made dietary changes since recent hospitalization, decreased carbs, feels better, plans to work harder on wt loss. Getting 3 wheeled bike so she can go on trails, not just exercise bike indoors. documented as of this encounter (statuses as of 09/26/2023) [facility]* Problem Noted Date Diagnosed Date Resolved Date OVERWEIGHT 05/11/2021 Last Assessment & Plan: Has made dietary changes since recent hospitalization, decreased carbs, feels better, plans to work harder on wt loss. Getting 3 wheeled bike so she can go on trails, not just exercise bike indoors. documented as of this encounter (statuses as of 09/29/2023) [facility] Screening for [facility] cancer Special screening for malignant neoplasms, colon [facility] Screening for colon cancer- Primary Special screening for malignant neoplasms, colon [facility] Diagnosis Type I diabetes [...] malignant neoplasms, colon [facility] Diagnosis Chest pain, unspecified type- Primary [facility] Diagnosis Chest pain, unspecified type [facility] Diagnosis Pain of right upper extremity- Primary [facility] Diagnosis Pain of upper abdomen- Primary Abdominal pain, other specified site Alternating constipation and diarrhea Other symptoms involving digestive system documented in this encounter [facility]* Diagnosis Breast cancer screening by mammogram- Primary Dense breasts Inconclusive mammogram [facility]* Diagnosis Palpitations- Primary Encounter for immunization Need for other specified prophylactic vaccination against single bacterial disease documented in this encounter [facility]* Diagnosis 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)- Primary 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, not stated as uncontrolled Lipomas Vitamin D deficiency Unspecified vitamin D deficiency Insomnia, unspecified type documented in this encounter [facility]* Diagnosis 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, not stated as uncontrolled Charcot foot due to 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, not stated as uncontrolled [facility] Diagnosis Type I diabetes mellitus with [...] single bacterial disease [facility] Diagnosis 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)- Primary 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, not stated as uncontrolled Stress at home Unspecified family circumstance [facility]* Diagnosis Pneumonia due to COVID-19 virus- Primary Hypoxemia 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, not stated as uncontrolled Moderate persistent asthma without complication Unspecified asthma documented in this encounter [facility] note* Diagnosis Essential hypertension- Primary Unspecified essential hypertension Palpitations 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, not stated as uncontrolled [facility] Diagnosis Cellulitis of female genitalia Unspecified inflammatory disease of cervix, vagina, and vulva [facility] Diagnosis Labial abscess- Primary Other abscess of vulva Bradycardia Other specified cardiac dysrhythmias [facility] Diagnosis Psoriasis of scalp- Primary Other psoriasis Seborrheic dermatitis Seborrheic dermatitis, unspecified Essential hypertension Unspecified essential hypertension Palpitations History of delirium Personal history of other mental disorder [facility] chronically ill note* Diagnosis Screening mamm[facility] for breast cancer- [facility] Diagnosis Paroxysmal SVT (supraventricular tachycardia)- Primary Paroxysmal supraventricular tachycardia Palpitations [facility] Diagnosis Severe persistent asthma without complication [facility] Diagnosis Severe persistent asthma without complication- Primary Obesity, Class III, BMI 40-49.9 (morbid obesity) (HCC) Morbid obesity [facility]* Diagnosis Type I diabetes mellitus with [...] single bacterial disease [facility]* Diagnosis Polyarthralgia- Primary Pain in joint, multiple sites 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, not stated as uncontrolled Vitamin D deficiency Unspecified vitamin D deficiency Pain in finger of both hands [facility] Diagnosis Polyarthralgia- Primary Pain in joint, multiple sites Pain in finger of both hands Elevated C-reactive protein (CRP) Elevated sedimentation rate [facility]* Diagnosis Mild persistent asthma without complication- Primary Unspecified asthma Morbid obesity (HCC) Morbid obesity THAIS (obstructive sleep apnea) Obstructive sleep apnea (adult) (pediatric) [facility]* Diagnosis 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, not stated as uncontrolled Charcot foot due to 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, not stated as uncontrolled documented in this encounter [facility] for referral (narrative)* Outpatient Procedure (Routine) - Closed Specialty Diagnoses / Procedures Referred By Belgica jalloh Referred To Contact [facility] Diagnoses Screening for colon cancer Procedures COLONOSCOPY SCREENING COLONOSCOPY FLX DX W/COLLJ SPEC WHEN Holland Mercado MD [address] [place] [address] [facility] Disease [place] [phone] Referral ID Status Reason Start Date Expiration Date V isits Requested Visits Authorized [id number] Closed Auto-Generate d Referral 09/22/2021 09/22/2022 1 1 [facility] for referral (narrative)* Outpatient Procedure (Routine) - Closed Specialty Diagnoses / Procedures Referred By Belgica jalloh Referred To Contact [facility] Diagnoses Screening for colon cancer Procedures COLONOSCOPY SCREENING COLONOSCOPY FLX DX W/COLLJ SPEC WHEN Holland Mercado MD [address] [place] [address] [address] Referral ID Status Reason Start Date Expiration Date V isits Requested Visits Authorized [id number] Closed Auto-Generate d Referral 09/22/2021 09/22/2022 1 1 [facility] for referral (narrative)* Diagnostic Procedure Only (Routine) - Pending Review Specialty Diagnoses / Procedures Referred By Belgica Referred To Contact [facility] Diagnoses Breast cancer screening by mammogram Dense breasts Procedures KELLY SCREENING W MINAL SCREENING DIGITAL BREAST TOMOSYNTHESIS BI SCREENING MAMMOGRAPHY BI 2-VIEW BREAST INC CAD Lydia Grande APRN.DIRECTIONAL SURVEY DRAFTER [address] [place] [address] [facility] [address] [place] [address] Referral ID Status Reason Start Date Expiration Date Visits Requested Visits Authorized [id number] Pending Review Auto-Generat ed Referral 01/21/2022 02/19/2023 1 1 [facility] for referral (narrative)* Diagnostic Procedure Only (Routine) - Pending Review Specialty Diagnoses / Procedures Referred By Belgica jalloh Referred To Contact [facility] Diagnoses Screening mammogram for breast cancer Procedures KELLY SCREENING W MINAL SCREENING DIGITAL BREAST TOMOSYNTHESIS BI SCREENING MAMMOGRAPHY BI 2-VIEW BREAST INC Octavio Tolbert MD [address] [place] [address] [facility] [address] [place] [address] Referral ID Status Reason Start Date Expiration Date Visits Requested Visits Authorized [id number] Pending Review Auto-Generat ed Referral 02/21/2023 03/22/2024 1 1 [facility] for referral (narrative)* Outpatient Procedure (Routine) - Closed Specialty Diagnoses / Procedures Referred By Belgica jalloh Referred To [facility] Diagnoses Severe persistent asthma without complication Procedures NITRIC OXIDE, EXHALED NITRIC OXIDE GAS DETERMINATION Tierney Helm PA-C [address] [facility] [place] [address] [facility] [place] [address] [place] [id number] Referral ID Status Reason Start Date Expiration Date V isits Requested Visits Authorized [id number] Closed Auto-Generate d Referral 06/23/2023 07/22/2024 1 1 * Outpatient Procedure (Routine) - Closed Specialty Diagnoses / Procedures Referred By Contac t Referred To [facility] Diagnoses Severe persistent asthma without complication Procedures SPIROMETRY BASELINE ONLY SPMTRY W/VC EXPIRATORY MYRON W/WO MXML VOL VNTJ Tierney Helm PA-C [address] [place] [address] [address] Referral ID Status Reason Start Date Expiration Date V isits Requested Visits Authorized [id number] Closed Auto-Generate d Referral 06/23/2023 07/17/2023 1 1 * Outpatient Procedure (Routine) - Closed Specialty Diagnoses / Procedures Referred By Contac t Referred To [facility] Diagnoses Severe persistent asthma without complication Procedures OXIMETRY WITH AMBULATION NONINVASIVE EAR/PULSE OXIMETRY MULTIPLE DETER Tierney Helm PA-C [address] [place] [address] [address] Referral ID Status Reason Start Date Expiration Date V isits Requested Visits Authorized [id number] Closed Auto-Generate d Referral 06/23/2023 07/17/2023 1 1 [facility] for referral (narrative)* Outpatient Procedure (Routine) - Authorized Specialty Diagnoses / Procedures Referred By Contac t Referred To [facility] Diagnoses Mild persistent asthma without complication Procedures NITRIC OXIDE, EXHALED NITRIC OXIDE GAS DETERMINATION Christine Perkins MD [address] [place] [address] [address] Referral ID Status Reason Start Date Expiration Date Visits Requested Visits Authorized [id number] Authorized Auto-Generat ed Referral 09/22/2023 10/21/2024 1 1 [facility] for visit Narrative* Outpatient Procedure (Routine) - Closed Specialty Diagnoses / Procedures Referred By Contac t Referred To Contact [facility] Diagnoses Screening for colon cancer Procedures COLONOSCOPY SCREENING COLONOSCOPY FLX DX W/COLLJ SPEC WHEN [facility] Holland Carmichael MD [address] [place] [address] [facility] [place] [address] [place] [address] Referral ID Status Reason Start Date Expiration Date V isits Requested Visits Authorized [id number] Closed Auto-Generate d Referral 09/22/2021 09/22/2022 1 1 [facility] No Advanced Directives Records FoundDocuments on File Type Date Recorded Patient Design Sales Consultant Expl anation Advance Directive(s) 09/30/2021 12:15 PM Documents on File Type Date Recorded Patient Design Sales Consultant Expl anation Advance Directive(s) 10/29/2021 7:15 AM Advance Directive(s) 09/30/2021 12:15 PM Documents on File Type Date Recorded Patient Design Sales Consultant Expl anation Advance Directive(s) 10/29/2021 7:15 AM [...] screening Procedures CONSULT TO GENERAL SURGERY OFFICE/OUTPATIENT [facility] 60-74 MINUTES Octavio Reza MD [address] [place] [address] Holland Carmichael MD [address] [place] [phone] Referral ID Status Reason Start Date Expiration Date Visits Requested Visits Authorized [id number] Pending Review PCP Requested Referral 09/11/2021 09/11/2022 1 1 Specialty Diagnoses / Procedures Referred By Contac t Referred To Contact Orthopedics Diagnoses Pain of right upper extremity Procedures CONSULT PANEL TO ORTHOPAEDICS OFFICE/OUTPATIENT [facility] 60-74 MINUTES Wanda Phillips APRN.INTERNAL CONTROLS ANALYST [address] [place] [phone] Referral ID Status Reason Start Date Expiration Date Visits Requested Visits Authorized [id number] Pending Review PCP Requested Referral 12/17/2021 12/17/2022 1 1 Specialty Diagnoses / Procedures Referred By Contac t Referred To Contact [facility] Diagnoses Pain of right upper extremity Procedures XR HUMERUS 2V AP/LAT RIGHT RADEX HUMERUS MINIMUM 2 VIEWS Wanda Phillips APRN.INTERNAL CONTROLS ANALYST [address] [place] [address] X[facility] Imaging Referral ID Status Reason Start Date Expiration Date V isits Requested Visits Authorized [id number] Closed Auto-Generate d Referral 12/17/2021 01/16/2023 1 1 Referral ID Status Reason Start Date Expiration Date V isits Requested Visits Authorized [id number] Closed Auto-Generate d Referral 12/17/2021 01/16/2023 1 1 Specialty Diagnoses / Procedures Referred By Contac t Referred To Contact Octavio Reza MD [address] [place] [address] Referral ID Status Reason Start Date Expiration Date Visits Re quested Visits Authorized [id number] Closed 1 1 Referral ID Status Reason Start Date Expiration Date Visits Re quested Visits Authorized [id number] Closed 1 1 Specialty Diagnoses / Procedures Referred By Belgica jalloh Referred To Contact Rheumatology Diagnoses Polyarthralgia Pain in finger of both hands Elevated C-reactive protein (CRP) Elevated sedimentation rate Procedures CONSULT TO RHEUM/IMMUN DISEASE OFFICE/OUTPATIENT NEW HIGH MDM 60 MINUTES Lydia Grande APRN.DIRECTIONAL SURVEY DRAFTER [address] [place] [address] Referral ID Status Reason Start Date Expiration Date Visits Requested Visits Authorized [id number] Authorized PCP Requested Referral 09/05/2023 09/04/2024 1 [...] or prosecute any alcohol or drug abuse patient.[facility] the event this information is protected by the Federal Confidentiality of Alcohol and Drug Abuse Patient Records regulations: The Federal rules restrict any use of the information to criminally investigate or prosecute any alcohol or drug abuse patient.[facility] event this information is protected by the Federal Confidentiality of Alcohol and Drug Abuse Patient Records regulations: The Federal rules restrict any use of the information to criminally investigate or prosecute any alcohol or drug abuse patient.[facility] the event this information is protected by the Federal Confidentiality of Alcohol and Drug Abuse Patient Records regulations: The Federal rules restrict any use of the information to criminally investigate or prosecute any alcohol or drug abuse patient.[facility] the event this information is protected by the Federal Confidentiality of Alcohol and Drug Abuse Patient Records regulations: The Federal rules restrict any use of the information to criminally investigate or prosecute any alcohol or drug abuse patient.[facility] the event this information is protected by the Federal Confidentiality of Alcohol and Drug Abuse Patient Records regulations: The Federal rules restrict any use of the information to criminally investigate or prosecute any alcohol or drug abuse patient.[facility] the event this information is protected by the Federal Confidentiality of Alcohol and Drug Abuse Patient Records regulations: The Federal rules restrict any use of the information to criminally investigate or prosecute any alcohol or drug abuse patient.[facility] the event this information is protected by the Federal Confidentiality of Alcohol and Drug Abuse Patient Records regulations: The Federal rules restrict any use of the information to criminally investigate or prosecute any alcohol or drug abuse patient.[facility] event this information is protected by the Federal Confidentiality of Alcohol and Drug Abuse Patient Records regulations: The Federal rules restrict any use of the information to criminally investigate or prosecute any alcohol or drug abuse patient.[facility] the event this information is protected by the Federal Confidentiality of Alcohol and Drug Abuse Patient Records regulations: The Federal rules restrict any use of the information to criminally investigate or prosecute any alcohol or drug abuse patient.[facility] the event this information is protected by the Federal Confidentiality of Alcohol and Drug Abuse Patient Records regulations: The Federal rules restrict any use of the information to criminally investigate or prosecute any alcohol or drug abuse patient.[facility] the event this information is protected by the Federal Confidentiality of Alcohol and Drug Abuse Patient Records regulations: The Federal rules restrict any use of the information to criminally investigate or prosecute any alcohol or drug abuse patient.[facility] the event this information is protected by the Federal Confidentiality of Alcohol and Drug Abuse Patient Records regulations: The Federal rules restrict any use of the information to criminally investigate or prosecute any alcohol or drug abuse patient.[facility] the event this information is protected by the Federal Confidentiality of Alcohol and Drug Abuse Patient Records regulations: The Federal rules restrict any use of the information to criminally investigate or prosecute any alcohol or drug abuse patient.[facility] the event this information is protected by the Federal Confidentiality of Alcohol and Drug Abuse Patient Records regulations: The Federal rules restrict any use of the information to criminally investigate or prosecute any alcohol or drug abuse patient.[facility] the event this information is protected by the Federal Confidentiality of Alcohol and Drug Abuse Patient Records regulations: The Federal rules restrict any use of the information to criminally investigate or prosecute any alcohol or drug abuse patient.[facility] the event this information is protected by the Federal Confidentiality of Alcohol and Drug Abuse Patient Records regulations: The Federal rules restrict any use of the information to criminally investigate or prosecute any alcohol or drug abuse patient.[facility] the event this information is protected by the Federal Confidentiality of Alcohol and Drug Abuse Patient Records regulations: The Federal rules restrict any use of the information to criminally investigate or prosecute any alcohol or drug abuse patient.[facility] the event this information is protected by the Federal Confidentiality of Alcohol and Drug Abuse Patient Records regulations: The Federal rules restrict any use of the information to criminally investigate or prosecute any alcohol or drug abuse patient.[facility] the event this information is protected by the Federal Confidentiality of Alcohol and Drug Abuse Patient Records regulations: The Federal rules restrict any use of the information to criminally investigate or prosecute any alcohol or drug abuse patient.[facility] the event this information is protected by the Federal Confidentiality of Alcohol and Drug Abuse Patient Records regulations: The Federal rules restrict any use of the information to criminally investigate or prosecute any alcohol or drug abuse patient.[facility] the event this information is protected by the Federal Confidentiality of Alcohol and Drug Abuse Patient Records regulations: The Federal rules restrict any use of the information to criminally investigate or prosecute any alcohol or drug abuse patient.[facility] the event this information is protected by the Federal Confidentiality of Alcohol and Drug Abuse Patient Records regulations: The Federal rules restrict any use of the information to criminally investigate or prosecute any alcohol or drug abuse patient.[facility] the event this information is protected by the Federal Confidentiality of Alcohol and Drug Abuse Patient Records regulations: The Federal rules restrict any use of the information to criminally investigate or prosecute any alcohol or drug abuse patient.[facility] the event this information is protected by the Federal Confidentiality of Alcohol and Drug Abuse Patient Records regulations: The Federal rules restrict any use of the information to criminally investigate or prosecute any alcohol or drug abuse patient.[facility] the event this information is protected by the Federal Confidentiality of Alcohol and Drug Abuse Patient Records regulations: The Federal rules restrict any use of the information to criminally investigate or prosecute any alcohol or drug abuse patient.[facility] the event this information is protected by the Federal Confidentiality of Alcohol and Drug Abuse Patient Records regulations: The Federal rules restrict any use of the information to criminally investigate or prosecute any alcohol or drug abuse patient.[facility] the event this information is protected by the Federal Confidentiality of Alcohol and Drug Abuse Patient Records regulations: The Federal rules restrict any use of the information to criminally investigate or prosecute any alcohol or drug abuse patient.[facility] the event this information is protected by the Federal Confidentiality of Alcohol and Drug Abuse Patient Records regulations: The Federal rules restrict any use of the information to criminally investigate or prosecute any alcohol or drug abuse patient.[facility] the event this information is protected by the Federal Confidentiality of Alcohol and Drug Abuse Patient Records regulations: The Federal rules restrict any use of the information to criminally investigate or prosecute any alcohol or drug abuse patient.[facility] the event this information is protected by the Federal Confidentiality of Alcohol and Drug Abuse Patient Records regulations: The Federal rules restrict any use of the information to criminally investigate or prosecute any alcohol or drug abuse patient.[facility] the event this information is protected by the Federal Confidentiality of Alcohol and Drug Abuse Patient Records regulations: The Federal rules restrict any use of the information to criminally investigate or prosecute any alcohol or drug abuse patient.[facility] the event this information is protected by the Federal Confidentiality of Alcohol and Drug Abuse Patient Records regulations: The Federal rules restrict any use of the information to criminally investigate or prosecute any alcohol or drug abuse patient.[facility] the event this information is protected by the Federal Confidentiality of Alcohol and Drug Abuse Patient Records regulations: The Federal rules restrict any use of the information to criminally investigate or prosecute any alcohol or drug abuse patient.[facility] the event this information is protected by the Federal Confidentiality of Alcohol and Drug Abuse Patient Records regulations: The Federal rules restrict any use of the information to criminally investigate or prosecute any alcohol or drug abuse patient.[facility] the event this information is protected by the Federal Confidentiality of Alcohol and Drug Abuse Patient Records regulations: The Federal rules restrict any use of the information to criminally investigate or prosecute any alcohol or drug abuse patient.[facility] the event this information is protected by the Federal Confidentiality of Alcohol and Drug Abuse Patient Records regulations: The Federal rules restrict any use of the information to criminally investigate or prosecute any alcohol or drug abuse patient.[facility] the event this information is protected by the Federal Confidentiality of Alcohol and Drug Abuse Patient Records regulations: The Federal rules restrict any use of the information to criminally investigate or prosecute any alcohol or drug abuse patient.[facility] the event this information is protected by the Federal Confidentiality of Alcohol and Drug Abuse Patient Records regulations: The Federal rules restrict any use of the information to criminally investigate or prosecute any alcohol or drug abuse patient.[facility] the event this information is protected by the Federal Confidentiality of Alcohol and Drug Abuse Patient Records regulations: The Federal rules restrict any use of the information to criminally investigate or prosecute any alcohol or drug abuse patient.[facility]In the event this information is protected by the Federal Confidentiality of Alcohol and Drug Abuse Patient Records regulations: The Federal rules restrict any use of the information to criminally investigate or prosecute any alcohol or drug abuse patient.[facility]In the event this information is protected by the Federal Confidentiality of Alcohol and Drug Abuse Patient Records regulations: The Federal rules restrict any use of the information to criminally investigate or prosecute any alcohol or drug abuse patient.[facility]In the event this information is protected by the Federal Confidentiality of Alcohol and Drug Abuse Patient Records regulations: The Federal rules restrict any use of the information to criminally investigate or prosecute any alcohol or drug abuse patient.[facility]In the event this information is protected by the Federal Confidentiality of Alcohol and Drug Abuse Patient Records regulations: The Federal rules restrict any use of the information to criminally investigate or prosecute any alcohol or drug abuse patient.[facility]In the event this information is protected by the Federal Confidentiality of Alcohol and Drug Abuse Patient Records regulations: The Federal rules restrict any use of the information to criminally investigate or prosecute any alcohol or drug abuse patient.[facility]In the event this information is protected by the Federal Confidentiality of Alcohol and Drug Abuse Patient Records regulations: The Federal rules restrict any use of the information to criminally investigate or prosecute any alcohol or drug abuse patient.[facility]In the event this information is protected by the Federal Confidentiality of Alcohol and Drug Abuse Patient Records regulations: The Federal rules restrict any use of the information to criminally investigate or prosecute any alcohol or drug abuse patient.[facility]In the event this information is protected by the Federal Confidentiality of Alcohol and Drug Abuse Patient Records regulations: The Federal rules restrict any use of the information to criminally investigate or prosecute any alcohol or drug abuse patient.[facility]In the event this information is protected by the Federal Confidentiality of Alcohol and Drug Abuse Patient Records regulations: The Federal rules restrict any use of the information to criminally investigate or prosecute any alcohol or drug abuse patient.[facility]In the event this information is protected by the Federal Confidentiality of Alcohol and Drug Abuse Patient Records regulations: The Federal rules restrict any use of the information to criminally investigate or prosecute any alcohol or drug abuse patient.[facility]In the event this information is protected by the Federal Confidentiality of Alcohol and Drug Abuse Patient Records regulations: The Federal rules restrict any use of the information to criminally investigate or prosecute any alcohol or drug abuse patient.[facility]In the event this information is protected by the Federal Confidentiality of Alcohol and Drug Abuse Patient Records regulations: The Federal rules restrict any use of the information to criminally investigate or prosecute any alcohol or drug abuse patient.[facility] HospitalIn the event this information is protected by the Federal Confidentiality of Alcohol and Drug Abuse Patient Records regulations: The Federal rules restrict any use of the information to criminally investigate or prosecute any alcohol or drug abuse patient.[facility] HospitalIn the event this information is protected by the Federal Confidentiality of Alcohol and Drug Abuse Patient Records regulations: The Federal rules restrict any use of the information to criminally investigate or prosecute any alcohol or drug abuse patient.[facility] HospitalIn the event this information is protected by the Federal Confidentiality of Alcohol and Drug Abuse Patient Records regulations: The Federal rules restrict any use of the information to criminally investigate or prosecute any alcohol or drug abuse patient.[facility] HospitalIn the event this information is protected by the Federal Confidentiality of Alcohol and Drug Abuse Patient Records regulations: The Federal rules restrict any use of the information to criminally investigate or prosecute any alcohol or drug abuse patient.[facility] HospitalIn the event this information is protected by the Federal Confidentiality of Alcohol and Drug Abuse Patient Records regulations: The Federal rules restrict any use of the information to criminally investigate or prosecute any alcohol or drug abuse patient.[facility] HospitalIn the event this information is protected by the Federal Confidentiality of Alcohol and Drug Abuse Patient Records regulations: The Federal rules restrict any use of the information to criminally investigate or prosecute any alcohol or drug abuse patient.[facility] HospitalIn the event this information is protected by the Federal Confidentiality of Alcohol and Drug Abuse Patient Records regulations: The Federal rules restrict any use of the information to criminally investigate or prosecute any alcohol or drug abuse patient.[facility] HospitalIn the event this information is protected by the Federal Confidentiality of Alcohol and Drug Abuse Patient Records regulations: The Federal rules restrict any use of the information to criminally investigate or prosecute any alcohol or drug abuse patient.[facility] HospitalIn the event this information is protected by the Federal Confidentiality of Alcohol and Drug Abuse Patient Records regulations: The Federal rules restrict any use of the information to criminally investigate or prosecute any alcohol or drug abuse patient.[facility] HospitalIn the event this information is protected by the Federal Confidentiality of Alcohol and Drug Abuse Patient Records regulations: The Federal rules restrict any use of the information to criminally investigate or prosecute any alcohol or drug abuse patient.[facility] HospitalIn the event this information is protected by the Federal Confidentiality of Alcohol and Drug Abuse Patient Records regulations: The Federal rules restrict any use of the information to criminally investigate or prosecute any alcohol or drug abuse patient.[facility] Reason for Visit (unrecogniz ed section [...] OT Reason Comments Hospital F/U Follow up [facility] and Av enue discharge Reason Comments Results Reason Comments Established Patient Reason Comments [facility] - medication question Reason Comments Vulvar problem Reason Comments Same Day Appointment lump in anus area x 1 week txd with antibiotics Reason Comments Lump on anus Reason Comments Follow Up 4 month Reason Comments patient asking for 3 D mamm order fax to [facility] Reason Comments Refill Request Reason Comments New Patient Palpitations Specialty Diagnoses / Procedures [facility] Diagnoses Palpitations Paroxysmal SVT (supraventricular tachycardia) Procedures CONSULT TO CARDIOLOGY OFFICE/OUTPATIENT NEW HIGH MDM 60-74 MINUTES Davon Wolfe APRN.INTERNAL CONTROLS ANALYST [address] [place] [address] Referral ID Status Reason Start Date Expiration Date Visits Requested Visits Authorized [id number] Pending Review PCP Requested Referral 11/12/2022 11/12/2023 1 1 Reason Onset Date Comments Refill Request 06/14/2023 Reason Comments Spirometry Specialty Diagnoses / Procedures [facility] Diagnoses Severe persistent asthma without complication Procedures OXIMETRY WITH AMBULATION NONINVASIVE EAR/PULSE OXIMETRY MULTIPLE DETER Tierney Helm PA-C [address] [place] [address] [facility] [address] [place] [address] Referral ID Status Reason Start Date Expiration Date V isits Requested Visits Authorized [id number] Closed Auto-Generate d Referral 06/23/2023 07/17/2023 1 1 Specialty Diagnoses / Procedures [facility] Diagnoses Severe persistent asthma without complication Procedures NITRIC OXIDE, EXHALED NITRIC OXIDE GAS DETERMINATION Tierney Helm PA-C [address] [place] [address] [facility] [address] [place] [address] Referral ID Status Reason Start Date Expiration Date V isits Requested Visits Authorized [id number] Closed Auto-Generate d Referral 06/23/2023 07/22/2024 1 1 Reason Comments Established Patient Reason Comments F/U 4 month Labs prior Reason Comments Pain All over pain. Reason Comments Results Reason Comments Recheck Asthma 3 month follow up Reason Onset Date Comments Refill Request 09/23/2023 Reason Comments Insurance Authorization glucose test str ips Reason Comments Orders Care Teams (unrecognized sec tion and content) 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 Start Date End Date Octavio Reza MD [address] [place] [id number] PCP - General Internal Medicine 08/24/10 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 Start Date End Date Octavio Reza MD [address] [place] [address] PCP - General Internal Medicine 08/24/10 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 Start Date End Date Octavio Reza MD [address] [place] [address] PCP - General Internal Medicine 08/24/10 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 Start Date End Date Octavio Reza MD [address] [place] [address] PCP - General Internal Medicine 08/24/10 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 Start Date End Date Octavio Reza MD [address] [place] [address] PCP - General Internal Medicine 08/24/10 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 Start Date End Date Octavio Reza MD [address] [place] [address] PCP - General Internal Medicine 08/24/10 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 Start Date End Date Octavio Reza MD [facility] [place] [address] PCP - General Internal Medicine 08/24/10 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 Start Date End Date Octavio Reza MD [address] [place] [address], [place] [address] PCP - General Internal Medicine 08/24/10 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 Start Date End Date Octavio Reza MD [address] [place] [address], [place] [address] PCP - General Internal Medicine 08/24/10 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 Start Date End Date Octavio Reza MD [address] [place] [address], [place] [address] PCP - General Internal Medicine 08/24/10 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 Start Date End Date Octavio Reza MD [address] [place] [address], [place] [address] PCP - General Internal Medicine 08/24/10 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 Start Date End Date Octavio Reza MD [address] [place] [address], [place] [address] PCP - General Internal Medicine 08/24/10 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 Start Date End Date Octavio Reaz MD [address] [place] [address], [place] [address] PCP - General Internal Medicine 08/24/10 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 Start Date End Date Octavio Reza MD [address] [place] [address], [place] [address] PCP - General Internal Medicine 08/24/10 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 Start Date End Date Octavio eRza MD [address] [place] [address], [place] [address] PCP - General Internal Medicine 08/24/10 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 Start Date End Date Octavio Reza MD [address] [facility] [place] [address] PCP - General Internal Medicine 08/24/10 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 Start Date End Date Octavio Reza MD [address] [place] [address], [place] [address] PCP - General Internal Medicine 08/24/10 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 Start Date End Date Octavio Reza MD [address] [place] [address], [place] [address] PCP - General Internal Medicine 08/24/10 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 Start Date End Date Octavio Reza MD [address] [place] [address], [place] [address] PCP - General Internal Medicine 08/24/10 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 Start Date End Date Octavio Reza MD [address] [place] [address], [place] [address] PCP - General Internal Medicine 08/24/10 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 Start Date End Date Octavio Reza MD [address] [place] [address], [place] [address] PCP - General Internal Medicine 08/24/10 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 Start Date End Date Octavio Reza MD [address] [place] [address], [place] [address] PCP - General Internal Medicine 08/24/10 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 Start Date End Date Octavio Reza MD [address] [place] [address], [place] [address] PCP - General Internal Medicine 08/24/10 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 Start Date End Date Octavio Reza MD [address] [place] [address] PCP - General Internal Medicine 08/24/10 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 Start Date End Date Octavio Reza MD [address] [place] [address] PCP - General Internal Medicine 08/24/10 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 Start Date End Date Octavio Reza MD [address] [place] [address] PCP - General Internal Medicine 08/24/10 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 Start Date End Date Octavio Reza MD [address] [place] [address] PCP - General Internal Medicine 08/24/10 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 Start Date End Date Octavio Reza MD [address] [place] [address] PCP - General Internal Medicine 08/24/10 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 Start Date End Date Octavio Reza MD [address] [place] [address] PCP - General Internal Medicine 08/24/10 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 Start Date End Date Octavio Reza MD [address] [place] [address] PCP - General Internal Medicine 08/24/10 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 Start Date End Date Octavio Reza MD [address] [place] [address] PCP - General Internal Medicine 08/24/10 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 Start Date End Date Octavio Reza MD [address] [facility] [place] [address] PCP - General Internal Medicine 08/24/10 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 Start Date End Date Octavio Reza MD [address] [facility] [place] [address] PCP - General Internal Medicine 08/24/10 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 Start Date End Date Octavio Reza MD [address] [facility] [place] [address] PCP - General Internal Medicine 08/24/10 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 [facility]. provides no warranty or guarantee of the accuracy or completeness of information in this document.
[2023-10-01 15:14] LABS: Absolute Lymphocyte Count 0.78 X10^3/uL (0.83-4.51); Absolute Neutrophil Count 6.9 X10^3/uL (2.0-7.7); Basophil# 0.03 X10^3/uL; Basophil% 0.4 % (0-1); Eosinophils% 1.2 % (0-5); Hematocrit 39.6 % (37-47); Hemoglobin 12.7 g/dL (12.0-15.0); Lymphocyte # 0.78 X10^3/ul (0.83-4.51); Lymphocyte % 9.3 % (19-41); Mean Corp Hgb Conc 32.1 g/dL (32-36); Mean Corpuscular Hgb 28.6 pg (27.0-32.0); Mean Corpuscular Volume 89.2 fL (81-99); Mean Platelet Vol. 12.1 fl (6.2-12.0); Monocyte# 0.64 X10^3/uL; Monocyte% 7.6 % (0-10); NRBC Flagged by Analyzer 0 % (0-5); Neutrophil # 6.87 X10^3/uL (2.7-7.7); Neutrophil % 81.4 % (47-70); Platelet Count 182 K/mm3 (150-450); RBC Distribution Width CV 12.5 % (11.6-14.6); Red Blood Count 4.44 M/mm3 (4.2-5.4); White Blood Count 8.4 K/mm3 (4.4-11.0)
[2023-10-01 15:17] VITALS: O2SAT 93
[2023-10-01 15:32] LABS: Anion Gap 6 (5-15); BUN 12 mg/dL (7-18); BUN/Creat Ratio 15.7 RATIO (10-20); Chloride 103 mmol/L (98-107); Creatinine, Serum 0.77 mg/dL (0.55-1.02); EST Glomerular Filtration Rate 78 mL/min (>60); Est Glom Filt Rate - Afr Amer 94 mL/min (>60); Estimated Creatinine Clearance 92.45 ml/min; Glucose 163 mg/dL (74-106); Potassium 3.9 mmol/L (3.5-5.1); Sodium Level 138 mmol/L (136-145); Troponin-I HS 8 pg/mL (3.0-54.0)
[2023-10-01 16:37] VITALS: BP 142/65; PULSE 72; RESP 18; TEMP 36.7; O2SAT 95
== END 2023-10-01 16:40 | disposition home or self-care (01) ==
LOC: ED 15:08
PROVIDERS: Physician Assistant; Emergency Provider Emergency Medicine; PCP Internal Medicine; Visit Provider Emergency Medicine
DX: J06.9 Acute upper respiratory infection, unspecified (principal); E11.610 Type 2 diabetes mellitus with diabetic neuropathic arthropathy; I10 Essential (primary) hypertension; E78.5 Hyperlipidemia, unspecified; R07.89 Other chest pain; G47.33 Obstructive sleep apnea (adult) (pediatric); Z87.891 Personal history of nicotine dependence; Z79.51 Long term (current) use of inhaled steroids; Z79.899 Other long term (current) drug therapy; Z86.16 Personal history of COVID-19; Z99.81 Dependence on supplemental oxygen; Z86.718 Personal history of other venous thrombosis and embolism
CPT/HCPCS: 71046; 80048; 84484; 85025; 87631; 93005; 99283; A4216

== ENCOUNTER 2023-10-28 18:45 | Emergency (ER) | payer MEDICARE, SELFPAY ==
[2023-10-28 18:45] VITALS: BP 172/66; PULSE 80; RESP 16; TEMP 35.8; O2SAT 96
[2023-10-28 18:51] VITALS: BP 172/66; PULSE 80; RESP 18; TEMP 35.8; O2SAT 96
--- NOTE | 2023-10-28 19:12 | EKG12_ITS ---
Test Reason : DYSRHYTHMIA Blood Pressure : / mmHG Vent. Rate : 068 BPM Atrial Rate : 068 BPM P-R Int : 134 ms QRS Dur : 082 ms QT Int : 418 ms P-R-T Axes : 073 039 059 degrees QTc Int : 444 ms Normal sinus rhythm Normal ECG Confirmed by Miguel Angel Bosch ([id number]), metropolitan editor RHONDA BRADFORD ([id number]) on 10/31/2023 6:36:14 AM Referred By: Confirmed By:Miguel Angel Bosch
--- NOTE | 2023-10-28 19:13 | EDS_ITS ---
HPI History of Present Illness Chief Complaint: Hyperglycemia Informant: patient Narrative Narrative: Patient presents secondary to high blood sugars today. Normally her blood sugars run in the 100 to mid 200 range. Today she is been up in the 300s. She did take 5 units of Humalog prior to arrival when her blood sugar was 356. She states that she will get intermittent palpitations when her blood sugars are high. [facility] Medical History Abnormal EKG Asthma Bimalleolar ankle fracture Charcot's joint of left foot Diabetes mellitus, type II Essential hypertension GERD (gastroesophageal reflux disease) History of DVT (deep vein thrombosis) Hyperglycemia due to type 2 diabetes mellitus Hyperlipidemia Hypertension THAIS (obstructive sleep apnea) Palpitations Paroxysmal SVT (supraventricular tachycardia) Premature atrial contractions Premature ventricular contraction Sinus bradycardia Home Medications aspirin 81 mg tablet,delayed release 81 mg PO DAILY heart health 11/24/17 [History Last Taken 01/19/19 16:00] ramipril 10 mg capsule 10 mg PO BID HEART 01/19/19 [History Last Taken 01/19/19 21:00] cholecalciferol (vitamin D3) 1,250 mcg (50,000 unit) capsule 1,250 mcg PO QWEEK SUPPLEMENT 12/03/19 [History Last Taken Unknown] furosemide 20 mg tablet 20 mg PO DAILY PRN water pill 01/22/21 [History Last Taken Unknown] budesonide-formoterol HFA 160 mcg-4.5 mcg/actuation aerosol inhaler 2 puff inhalation BID ASTHMA 12/21/21 [History Last Taken Unknown] zolpidem 5 mg tablet 2.5 mg PO QHS PRN Insomnia 02/11/22 [History Last Taken Unknown] insulin lispro 100 unit/mL subcutaneous solution 6 unit subcut TIDCM dm 06/22/22 [History Last Taken Unknown] omeprazole magnesium 20 mg tablet,delayed release (Prilosec OTC) 20 mg PO DAILY GERD 06/22/22 [History Last Taken Unknown] albuterol sulfate 90 mcg/actuation aerosol inhaler (Ventolin HFA) 2 puff inhalation 4XD PRN sob #8.5 grams 07/14/22 [Rx Last Taken Unknown] metoprolol tartrate 25 mg tablet 25 mg PO BID BLOOD PRESSURE 07/17/22 [History Last Taken Unknown] acetaminophen 325 mg tablet (Tylenol) 650 mg (2 x 325 mg) PO Q6H PRN PRN Pain 1- 10 Or Fever >100.7 #0 tabs 08/02/22 [Rx Last Taken Unknown] insulin glargine-yfgn 100 unit/mL (3 mL) subcutaneous pen 24 unit (0.24 mL) subcut BID #15 mL 08/02/22 [Rx Last Taken Unknown] insulin lispro 100 unit/mL subcutaneous pen (Humalog KwikPen (U-100) Insulin) See Protocol subcut ACHS #0 mL 08/02/22 [Rx Last Taken Unknown] amlodipine 10 mg tablet 10 mg PO DAILY 10/01/23 [History Last Taken Unknown] metoprolol tartrate 50 mg tablet 50 mg PO Q12H heart rate, BP 10/01/23 [History Last Taken Unknown] Allergy/AdvReac Type Severity Reaction Status Date / Time hydromorphone Allergy Severe Anaphylaxis Verified 10/28/23 18:51 tramadol Allergy Severe Anaphylaxis Verified 10/28/23 18:51 amiodarone Allergy Intermediate Swelling Verified 10/28/23 18:51 [place] And Derivatives Allergy Intermediate Hives Verified 10/28/23 18:51 morphine Allergy Intermediate confusion Verified 10/28/23 18:51 moxifloxacin Allergy Intermediate Shortness Verified 10/28/23 18:51 of breath nabumetone Allergy Intermediate damaged Verified 10/28/23 18:51 kidney penicillin G Allergy Intermediate TURNS BLUE Verified 10/28/23 18:51 propoxyphene Allergy Intermediate PT UNSURE Verified 10/28/23 18:51 OF REACTION amlodipine Allergy Mild Abd Verified 10/28/23 18:51 cramps/diarrhea desloratadine Allergy Mild headache Verified 10/28/23 18:51 glutamine Allergy Mild Itching Verified 10/28/23 18:51 [From Airborne (ascorbate sodium)] herbal complex no.124 Allergy Mild Itching Verified 10/28/23 18:51 [From Airborne (ascorbate sodium)] hydrocodone [From [place]] Allergy Mild dystonia Verified 10/28/23 18:51 lysine HCl Allergy Mild Itching Verified 10/28/23 18:51 [From Airborne (ascorbate sodium)] multivitamin with minerals Allergy Mild Itching Verified 10/28/23 18:51 [From Airborne (ascorbate sodium)] pravastatin Allergy Unknown unknown Verified 10/28/23 18:51 rosuvastatin [From Crestor] Allergy Unknown myalgias Verified 10/28/23 18:51 simvastatin Allergy Unknown unknown Verified 10/28/23 18:51 escitalopram Allergy Other Verified 10/28/23 18:51 hydrochlorothiazide Allergy Other Verified 10/28/23 18:51 [id number] Reductase AdvReac Severe myalgias Verified 10/28/23 18:51 Inhibitor [Zfdeevn-Mwb-Shm Reductase Inhibitor] amoxicillin [From Augmentin] AdvReac Other Verified 10/28/23 18:51 clavulanic acid AdvReac Other Verified 10/28/23 18:51 [From Augmentin] codeine AdvReac Nausea Verified 10/28/23 18:51 naproxen [From Naprosyn] AdvReac Nausea Verified 10/28/23 18:51 Family History Mother Aortic stenosis Presence of permanent cardiac pacemaker Surgical History History of cholecystectomy History of herniorrhaphy History of tonsillectomy Status post ORIF of fracture of ankle Social History household members: spouse Smoking Status: Former smoker alcohol intake: never substance use type: does not use caffeine: Yes Type: coffee Number of servings: 3 ROS ROS ED Constitutional Constitutional ED: Denies chills or fever(s) Eyes Eyes: Denies discharge from eye(s) ENT ENT ED: Denies discharge from eye(s), rhinorrhea or sore throat Cardiovascular Cardiovascular: Reports palpitations; Denies chest pain Respiratory/Chest Respiratory/Chest: Denies cough or dyspnea Gastrointestinal Gastrointestinal: Denies abdominal pain, nausea or vomiting Genitourinary Genitourinary ED: Denies dysuria Musculoskeletal Musculoskeletal: Denies back pain or extremity pain Integumentary Denies Abrasions or rash Neurologic Neurologic: Denies headache(s) or weakness Psychiatric Psychiatric: Denies anxiety or depression Allergic/Immunologic Allergic/Immunologic ED: Denies lip swelling or urticaria EXAM Physical Exam Const Vital Signs: 10/28/23 18:51 10/28/23 18:45 10/28/23 19:24 Temperature 96.4 F L 96.4 F L Temperature Source Temporal Temporal Pulse Rate 80 80 Respiratory Rate 18 16 Respiratory Effort Normal Non-Labored Blood Pressure 172/66 H 172/66 H Blood Pressure Mean 101 101 Pulse Ox 96 96 Oxygen Delivery Method Room Air Room Air 10/28/23 19:32 10/28/23 20:04 10/28/23 21:12 Temperature 97.7 F L Temperature Source Pulse Rate 66 61 63 Respiratory Rate 14 14 16 Respiratory Effort Blood Pressure 162/73 H 152/58 H 152/58 H Blood Pressure Mean 102 89 89 Pulse Ox 97 97 95 Oxygen Delivery Method Room Air Room Air Positive well nourished and well developed General Appearance ED: well developed HEENT Reports moist mucous membranes Eyes EOMs intact bilaterally Chest Wall inspection of chest normal and palpation of chest normal Resp normal respiratory effort and clear to auscultation bilaterally Cardio regular rate and regular rhythm GI non-tender Palpation: soft Extremity normal to inspection Neuro oriented x3 and no sensory deficits noted Psych mental status grossly normal MDM MDM MDM Narrative Medical decision making narrative: Patient placed on air sampling and monitoring. EKG obtained to evaluate for cardiac arrhythmia/ischemia. IV line established. Labwork obtained to evaluate for leukocytosis, anemia, and electrolyte derangement. Patient given 500 cc IV fluid bolus. History & Record Review Discussion w/independent historian: Patient Lab Data Attestation: I reviewed the patient's lab results. Labs: Laboratory Results - last 24 hr 10/28/23 10/28/23 10/28/23 19:20 19:31 20:19 WBC 5.0 RBC 4.30 Hgb 12.5 Hct 38.4 MCV 89.3 MCH 29.1 MCHC 32.6 RDW Std Deviation 42.0 RDW Coeff of Madalyn 12.9 Plt Count 170 MPV 12.1 H Immature Gran % (Auto) 0.000 Neut % (Auto) 73.4 H Lymph % (Auto) 14.4 L [place] % (Auto) 6.2 Eos % (Auto) 5.4 H Baso % (Auto) 0.6 Absolute Neuts (auto) 3.7 Absolute Lymphs (auto) 0.72 L Nucleated RBC % 0 Sodium 136 Potassium 4.0 Chloride 103 Carbon Dioxide 29.0 Anion Gap 4 L BUN 21 H Creatinine 0.95 Estim Creat Clear Calc 78.68 Est GFR (MDRD) Af Amer 73 Est GFR (MDRD) Non-Af 60 BUN/Creatinine Ratio 22.1 H Glucose 315 H Calcium 8.8 Troponin I High Sens 10 POC Glucose 285 H 274 H EKG Initial EKG: Attestation: I personally reviewed and interpreted this EKG as follows: Interpretation: Sinus Rhythm (Sinus at 68 with no acute ischemia.) Treatment and Re-Evaluation :: CBC was a white count of 5.0 with a hemoglobin of 12.5. Chemistry studies remarkable only for a glucose of 315. Troponin is normal at 10. EKG is sinus rhythm at 68 bpm with no evidence of acute ischemia. Patient was given 500 cc IV fluid bolus here. That along with the 5 units of Humalog she had taken prior to arrival dropped her blood sugar to 274. I ordered another 6 units of fast acting insulin. Patient was concerned about that dropping her too much so she only wanted to take 3 units. She will take her long-acting insulin at bedtime tonight. Patient be discharged home with family at this time. Addendum: Patient's blood sugar was rechecked just prior to her leaving. Her blood sugars back up to 288. She agreed to take the additional 3 units of insulin that had initially been ordered. Discharge Plan Triage Chief Complaint: Hyperglycemia ED Provider: Tierney Francis Dx/Rx/DC Orders Clinical Impression: Hyperglycemia Instructions: ED Diabetic Hyperglycemia Prescriptions: No Action aspirin 81 mg tablet,delayed release (DR/EC) 81 mg PO DAILY Patient Comments: only takes sometimes cholecalciferol (vitamin D3) 1,250 mcg (50,000 unit) capsule 1,250 mcg PO QWEEK furosemide 20 mg tablet 20 mg PO DAILY PRN (Reason: water pill) insulin lispro 100 unit/mL solution 6 unit subcut TIDCM Protocol: 4. Sliding Scale Insulin High-Med Dosing Condition: 150-199 mg/dl = 2 units Condition: 200-259 mg/dl = 4 units Condition: 260-324 mg/dl = 6 units Condition: 325-374 mg/dl = 8 units Condition: 375-409 mg/dl = 10 units Condition: 410-449 mg/dl = 11 units Condition: Greater than 449 call physician Protocol Text: - Use for Total Daily Dose of Insulin 56-80 units - Patient who are insulin resistant or septic HIGH MEDIUM DOSING ALGORITHM Patient Comments: INJECT 3 TO 10 UNITS SUBCUTANEOUSLY BEFORE MEALS DIRECTED budesonide-formoterol 160-4.5 mcg/actuation HFA aerosol inhaler 2 puff inhalation BID omeprazole magnesium [Prilosec OTC] 20 mg tablet,delayed release (DR/EC) 20 mg PO DAILY ramipril 10 MG capsule 10 mg PO BID Patient Comments: TAKE 1 CAPSULE BY MOUTH TWICE DAILY zolpidem 5 mg Tablet 2.5 mg PO QHS PRN (Reason: Insomnia) albuterol sulfate [Ventolin HFA] 90 mcg/actuation HFA aerosol inhaler 2 puff INHALATION 4XD PRN (Reason: sob) Qty: 8.5 0RF Rx Instructions: use four times a day for the next seven days, then use every 6 hours as needed for shortness of breath metoprolol tartrate 25 mg tablet 25 mg PO BID acetaminophen [Tylenol] 325 mg Tablet 650 mg PO Q6H PRN PRN (Reason: Pain 1-10 Or Fever >100.7) Qty: 0 0RF insulin lispro [Humalog KwikPen Insulin] 100 unit/mL Insulin Pen See Protocol subcut ACHS Qty: 0 0RF Protocol: 4. Sliding Scale Insulin High-Med Dosing Condition: 150-199 mg/dl = 2 units Condition: 200-259 mg/dl = 4 units Condition: 260-324 mg/dl = 6 units Condition: 325-374 mg/dl = 8 units Condition: 375-409 mg/dl = 10 units Condition: 410-449 mg/dl = 11 units Condition: Greater than 449 call physician Protocol Text: - Use for Total Daily Dose of Insulin 56-80 units - Patient who are insulin resistant or septic HIGH MEDIUM DOSING ALGORITHM insulin glargine-yfgn 100 unit/mL (3 mL) insulin pen 24 unit subcut BID Qty: 15 0RF metoprolol tartrate 50 mg tablet 50 mg PO Q12H Patient Comments: takes half tablet in morning and night amlodipine 10 mg tablet 10 mg PO DAILY Patient Comments: takes half tablet/day Primary Care Provider: Luzma Palencia Referrals: Luzma Palencia MD [Primary Care Provider] - 1 Week Disposition Disposition: Home, Self Care
[2023-10-28 19:23] VITALS: BMI 50.8
[2023-10-28 19:24] LABS: Absolute Lymphocyte Count 0.72 X10^3/uL (0.83-4.51); Absolute Neutrophil Count 3.7 X10^3/uL (2.0-7.7); Basophil# 0.03 X10^3/uL; Basophil% 0.6 % (0-1); Eosinophil# 0.27 X10^3/uL; Eosinophils% 5.4 % (0-5); Hematocrit 38.4 % (37-47); Hemoglobin 12.5 g/dL (12.0-15.0); Lymphocyte # 0.72 X10^3/ul (0.83-4.51); Lymphocyte % 14.4 % (19-41); Mean Corp Hgb Conc 32.6 g/dL (32-36); Mean Corpuscular Hgb 29.1 pg (27.0-32.0); Mean Corpuscular Volume 89.3 fL (81-99); Mean Platelet Vol. 12.1 fl (6.2-12.0); Monocyte# 0.31 X10^3/uL; Monocyte% 6.2 % (0-10); NRBC Flagged by Analyzer 0 % (0-5); Neutrophil # 3.66 X10^3/uL (2.7-7.7); Neutrophil % 73.4 % (47-70); Platelet Count 170 K/mm3 (150-450); RBC Distribution Width CV 12.9 % (11.6-14.6)
[2023-10-28] MEDS: 0.9% Normal Saline (500mL Bag) 500 ML 1000 ML IV (19:25)
[2023-10-28 19:32] VITALS: BP 162/73; PULSE 66; RESP 14; O2SAT 97
[2023-10-28 19:42] LABS: Anion Gap 4 (5-15); BUN 21 mg/dL (7-18); BUN/Creat Ratio 22.1 RATIO (10-20); Calcium,Total 8.8 mg/dL (8.5-10.1); Chloride 103 mmol/L (98-107); Creatinine, Serum 0.95 mg/dL (0.55-1.02); EST Glomerular Filtration Rate 60 mL/min (>60); Est Glom Filt Rate - Afr Amer 73 mL/min (>60); Estimated Creatinine Clearance 78.68 ml/min; Glucose 315 mg/dL (74-106); Sodium Level 136 mmol/L (136-145); Troponin-I HS 10 pg/mL (3.0-54.0)
[2023-10-28 20:04] VITALS: BP 152/58; PULSE 61; RESP 14; O2SAT 97
[2023-10-28 20:38] LABS: Bedside Glucose 285 mg/dL (74-106)
[2023-10-28 20:38] LABS: Bedside Glucose 274 mg/dL (74-106)
[2023-10-28] MEDS: Insulin Lispro 100 UNIT/ML INSULN.PEN 6 UNIT SC (20:49)
[2023-10-28 21:12] VITALS: BP 152/58; PULSE 63; RESP 16; TEMP 36.5; O2SAT 95
[2023-10-28 21:36] LABS: Bedside Glucose 288 mg/dL (74-106)
== END 2023-10-28 21:28 | disposition home or self-care (01) ==
PROVIDERS: Emergency Provider Emergency Medicine; PCP Internal Medicine; Visit Provider Emergency Medicine
DX: E11.65 Type 2 diabetes mellitus with hyperglycemia (principal); G47.33 Obstructive sleep apnea (adult) (pediatric); Z87.891 Personal history of nicotine dependence; Z86.718 Personal history of other venous thrombosis and embolism
CPT/HCPCS: 80048; 82962; 84484; 85025; 93005; 99284; J7030

== ENCOUNTER 2023-11-06 19:25 | Emergency (ER) | payer MEDICARE, SELFPAY ==
[2023-11-06 19:26] VITALS: BP 176/83; PULSE 65; RESP 16; TEMP 36.3; O2SAT 95
--- NOTE | 2023-11-06 20:21 | EDS_ITS ---
HPI History of Present Illness Chief Complaint: Palpitations Informant: patient Narrative Narrative: 78-year-old female brought to the emergency room with chief complaint of palpitations. Patient states she was using the exercise bike and when she got off she noticed that her heart seem to be having double beats. She has had a history of SVT in the past and states that her heart was not beating fast but she had a bit of chest pressure. She states she drank some Gatorade took some aspirin and over the course of 2 hours it resolved. She states she saw cardiology wore a Holter monitor in September. She takes metoprolol. She states she is not on any anticoagulants. Currently asymptomatic. [facility] Medical History Abnormal EKG Asthma Bimalleolar ankle fracture Charcot's joint of left foot Diabetes mellitus, type II Essential hypertension GERD (gastroesophageal reflux disease) History of DVT (deep vein thrombosis) Hyperglycemia due to type 2 diabetes mellitus Hyperlipidemia Hypertension THAIS (obstructive sleep apnea) Palpitations Paroxysmal SVT (supraventricular tachycardia) Premature atrial contractions Premature ventricular contraction Sinus bradycardia Home Medications aspirin 81 mg tablet,delayed release 81 mg PO DAILY heart health 11/24/17 [History Last Taken 01/19/19 16:00] ramipril 10 mg capsule 10 mg PO BID HEART 01/19/19 [History Last Taken 01/19/19 21:00] cholecalciferol (vitamin D3) 1,250 mcg (50,000 unit) capsule 1,250 mcg PO QWEEK SUPPLEMENT 12/03/19 [History Last Taken Unknown] furosemide 20 mg tablet 20 mg PO DAILY PRN water pill 01/22/21 [History Last Taken Unknown] budesonide-formoterol HFA 160 mcg-4.5 mcg/actuation aerosol inhaler 2 puff inhalation BID ASTHMA 12/21/21 [History Last Taken Unknown] zolpidem 5 mg tablet 2.5 mg PO QHS PRN Insomnia 02/11/22 [History Last Taken Unknown] insulin lispro 100 unit/mL subcutaneous solution 6 unit subcut TIDCM dm 06/22/22 [History Last Taken Unknown] omeprazole magnesium 20 mg tablet,delayed release (Prilosec OTC) 20 mg PO DAILY GERD 06/22/22 [History Last Taken Unknown] albuterol sulfate 90 mcg/actuation aerosol inhaler (Ventolin HFA) 2 puff inhalation 4XD PRN sob #8.5 grams 07/14/22 [Rx Last Taken Unknown] metoprolol tartrate 25 mg tablet 25 mg PO BID BLOOD PRESSURE 07/17/22 [History L ast Taken Unknown] acetaminophen 325 mg tablet (Tylenol) 650 mg (2 x 325 mg) PO Q6H PRN PRN Pain 1- 10 Or Fever >100.7 #0 tabs 08/02/22 [Rx Last Taken Unknown] insulin glargine-yfgn 100 unit/mL (3 mL) subcutaneous pen 24 unit (0.24 mL) subcut BID #15 mL 08/02/22 [Rx Last Taken Unknown] insulin lispro 100 unit/mL subcutaneous pen (Humalog KwikPen (U-100) Insulin) See Protocol subcut ACHS #0 mL 08/02/22 [Rx Last Taken Unknown] amlodipine 10 mg tablet 10 mg PO DAILY 10/01/23 [History Last Taken Unknown] metoprolol tartrate 50 mg tablet 50 mg PO Q12H heart rate, BP 10/01/23 [History Last Taken Unknown] Allergy/AdvReac Type Severity Reaction Status Date / Time hydromorphone Allergy Severe Anaphylaxis Verified 11/06/23 19:27 tramadol Allergy Severe Anaphylaxis Verified 11/06/23 19:27 amiodarone Allergy Intermediate Swelling Verified 11/06/23 19:27 [place] And Derivatives Allergy Intermediate Hives Verified 11/06/23 19:27 morphine Allergy Intermediate confusion Verified 11/06/23 19:27 moxifloxacin Allergy Intermediate Shortness Verified 11/06/23 19:27 of breath nabumetone Allergy Intermediate damaged Verified 11/06/23 19:27 kidney penicillin G Allergy Intermediate TURNS BLUE Verified 11/06/23 19:27 propoxyphene Allergy Intermediate PT UNSURE Verified 11/06/23 19:27 OF REACTION amlodipine Allergy Mild Abd Verified 11/06/23 19:27 cramps/diarrhea desloratadine Allergy Mild headache Verified 11/06/23 19:27 glutamine Allergy Mild Itching Verified 11/06/23 19:27 [From Airborne (ascorbate sodium)] herbal complex no.124 Allergy Mild Itching Verified 11/06/23 19:27 [From Airborne (ascorbate sodium)] hydrocodone [From [place]] Allergy Mild dystonia Verified 11/06/23 19:27 lysine HCl Allergy Mild Itching Verified 11/06/23 19:27 [From Airborne (ascorbate sodium)] multivitamin with minerals Allergy Mild Itching Verified 11/06/23 19:27 [From Airborne (ascorbate sodium)] pravastatin Allergy Unknown unknown Verified 11/06/23 19:27 rosuvastatin [From Crestor] Allergy Unknown myalgias Verified 11/06/23 19:27 simvastatin Allergy Unknown unknown Verified 11/06/23 19:27 escitalopram Allergy Other Verified 11/06/23 19:27 hydrochlorothiazide Allergy Other Verified 11/06/23 19:27 [id number]-[id number]-GsO Reductase AdvReac Severe myalgias Verified 11/06/23 19:27 Inhibitor [Gikwsdn-Pqp-Jpn Reductase Inhibitor] amoxicillin [From Augmentin] AdvReac Other Verified 11/06/23 19:27 clavulanic acid AdvReac Other Verified 11/06/23 19:27 [From Augmentin] codeine AdvReac Nausea Verified 11/06/23 19:27 naproxen [From Naprosyn] AdvReac Nausea Verified 11/06/23 19:27 Family History Mother Aortic stenosis Presence of permanent cardiac pacemaker Surgical History History of cholecystectomy History of herniorrhaphy History of tonsillectomy Status post ORIF of fracture of ankle Social History household members: spouse Smoking Status: Former smoker alcohol intake: never substance use type: does not use caffeine: Yes Type: coffee Number of servings: 3 ROS ROS ED Constitutional Constitutional ED: Denies chills, fever(s) or weight loss Eyes Eyes: Denies change in vision or diplopia ENT ENT ED: Denies ear pain, rhinorrhea or sore throat Cardiovascular Cardiovascular: Reports chest pain and palpitations; Denies orthopnea or racing heartbeat Respiratory/Chest Respiratory/Chest: Denies cough, dyspnea or orthopnea Gastrointestinal Gastrointestinal: Denies abdominal pain, diarrhea, nausea or vomiting Genitourinary Genitourinary ED: Denies dysuria, hematuria or urinary frequency Musculoskeletal Musculoskeletal: Denies arthralgias or myalgias Integumentary Denies abscess or rash Neurologic Neurologic: Denies headache(s) or weakness Psychiatric Psychiatric: Denies anxiety, depression, suicidal ideation or suicidal thoughts Endocrine Endocrinology: Denies polydipsia, polyphagia or polyuria Allergic/Immunologic Allergic/Immunologic ED: Denies mouth swelling, tongue swelling or urticaria EXAM Physical Exam Const Vital Signs: 11/06/23 19:26 11/06/23 19:49 11/06/23 21:25 Temperature 97.4 F L Temperature Source Temporal Pulse Rate 65 64 Respiratory Rate 16 16 Respiratory Effort Normal Blood Pressure 176/83 H 156/49 H Blood Pressure Mean 114 84 Pulse Ox 95 97 Oxygen Delivery Method Room Air Room Air 11/06/23 23:00 11/07/23 00:02 Temperature 96.5 F L Temperature Source Pulse Rate 62 61 Respiratory Rate 16 18 Respiratory Effort Blood Pressure 150/62 H 150/62 H Blood Pressure Mean 91 91 Pulse Ox 92 97 Oxygen Delivery Method Room Air Positive well nourished, well developed and obese General Appearance ED: well developed Nutritional Appearance: obese HEENT Reports normocephalic, head/scalp atraumatic and moist mucous membranes Eyes PERRL and EOMs intact bilaterally Neck no lymphadenopathy, supple and no JVD Resp normal respiratory effort and clear to auscultation bilaterally Cardio regular rate, regular rhythm and no murmurs GI normal to inspection, nondistended, normoactive bowel sounds and non-tender Palpation: soft Back/Spine no CVA tenderness and normal ROM Extremity normal to inspection General Extremety ED: Negative for edema General Extremity: Negative for edema Neuro oriented x3 and CN's II-XII intact bilaterally Sensorium / Orientation: alert Motor Exam: strength 5/5 throughout Psych mental status grossly normal Mood & Affect: Negative for depressed or tearful Skin no rashes or lesions noted and no wounds MDM MDM MDM Narrative Medical decision making narrative: EKG shows a normal sinus rhythm with a rate of 68 bpm. I have not seen any bigeminy or dysrhythmias on the monitor. I did review her outpatient Holter monitor. 2 sets of cardiac enzymes are negative. My independent interpretation of the chest x-ray is no acute process. White count 6.4 hemoglobin 12.8 platelet count of 200 glucose 160 creatinine 0.87. I am not suspecting aortic dissection I am not suspecting pulmonary embolism. Patient could be having bouts of bigeminy by the way that she describes the slow 2 consecutive beats followed by a pause palpitations. Difficult to say what the dissociated chest pressure was if this was related to a possible dysrhythmia I am not seeing evidence of ACS at this time. I believe the patient can be discharged home at this point to have her follow-up with cardiology. History & Record Review Discussion w/independent historian: Patient and Significant other Additional record(s) reviewed:: Prior outpatient record, Prior ED visit and Prior labs Lab Data Attestation: I reviewed the patient's lab results. Labs: Laboratory Results - last 24 hr 11/06/23 11/06/23 19:47 21:45 WBC 6.4 RBC 4.35 Hgb 12.8 Hct 39.0 MCV 89.7 MCH 29.4 MCHC 32.8 RDW Std Deviation 42.9 RDW Coeff of Madalyn 13.2 Plt Count 200 MPV 13.0 H Immature Gran % (Auto) 0.200 Neut % (Auto) 71.4 H Lymph % (Auto) 15.2 L [place] % (Auto) 6.9 Eos % (Auto) 5.8 H Baso % (Auto) 0.5 Absolute Neuts (auto) 4.6 Absolute Lymphs (auto) 0.97 Nucleated RBC % 0 Sodium 138 Potassium 4.0 Chloride 103 Carbon Dioxide 29.0 Anion Gap 6 BUN 25 H Creatinine 0.87 Est GFR (MDRD) Af Amer 81 Est GFR (MDRD) Non-Af 67 BUN/Creatinine Ratio 28.9 H Glucose 160 H Calcium 9.1 Troponin I High Sens 10 12 Radiography Diagnostic Testing: Clinical Impression(s) from Imaging Studies Chest X-Ray 11/06/23 21:00 IMPRESSION: 1. No radiographic evidence of acute cardiopulmonary disease. Electronically Signed: Miguel Angel Calero DO at 22:04 EDT , EKG Initial EKG: Attestation: I personally reviewed and interpreted this EKG as follows: Comments: Normal sinus rhythm ventricular rate of 68 bpm Discharge Plan Triage Chief Complaint: Palpitations ED Provider: Holland Sanches Dx/Rx/DC Orders Clinical Impression: Heart palpitations, Essential hypertension, Chest pain Instructions: ED Chest Pain, Uncertain Cause, ED Palpitations Prescriptions: No Action aspirin 81 mg tablet,delayed release (DR/EC) 81 mg PO DAILY Patient Comments: only takes sometimes cholecalciferol (vitamin D3) 1,250 mcg (50,000 unit) capsule 1,250 mcg PO QWEEK furosemide 20 mg tablet 20 mg PO DAILY PRN (Reason: water pill) insulin lispro 100 unit/mL solution 6 unit subcut TIDCM Protocol: 4. Sliding Scale Insulin High-Med Dosing Condition: 150-199 mg/dl = 2 units Condition: 200-259 mg/dl = 4 units Condition: 260-324 mg/dl = 6 units Condition: 325-374 mg/dl = 8 units Condition: 375-409 mg/dl = 10 units Condition: 410-449 mg/dl = 11 units Condition: Greater than 449 call physician Protocol Text: - Use for Total Daily Dose of Insulin 56-80 units - Patient who are insulin resistant or septic HIGH MEDIUM DOSING ALGORITHM Patient Comments: INJECT 3 TO 10 UNITS SUBCUTANEOUSLY BEFORE MEALS DIRECTED budesonide-formoterol 160-4.5 mcg/actuation HFA aerosol inhaler 2 puff inhalation BID omeprazole magnesium [Prilosec OTC] 20 mg tablet,delayed release (DR/EC) 20 mg PO DAILY ramipril 10 MG capsule 10 mg PO BID Patient Comments: TAKE 1 CAPSULE BY MOUTH TWICE DAILY zolpidem 5 mg Tablet 2.5 mg PO QHS PRN (Reason: Insomnia) albuterol sulfate [Ventolin HFA] 90 mcg/actuation HFA aerosol inhaler 2 puff INHALATION 4XD PRN (Reason: sob) Qty: 8.5 0RF Rx Instructions: use four times a day for the next seven days, then use every 6 hours as needed for shortness of breath metoprolol tartrate 25 mg tablet 25 mg PO BID acetaminophen [Tylenol] 325 mg Tablet 650 mg PO Q6H PRN PRN (Reason: Pain 1-10 Or Fever >100.7) Qty: 0 0RF insulin lispro [Humalog KwikPen Insulin] 100 unit/mL Insulin Pen See Protocol subcut ACHS Qty: 0 0RF Protocol: 4. Sliding Scale Insulin High-Med Dosing Condition: 150-199 mg/dl = 2 units Condition: 200-259 mg/dl = 4 units Condition: 260-324 mg/dl = 6 units Condition: 325-374 mg/dl = 8 units Condition: 375-409 mg/dl = 10 units Condition: 410-449 mg/dl = 11 units Condition: Greater than 449 call physician Protocol Text: - Use for Total Daily Dose of Insulin 56-80 units - Patient who are insulin resistant or septic HIGH MEDIUM DOSING ALGORITHM insulin glargine-yfgn 100 unit/mL (3 mL) insulin pen 24 unit subcut BID Qty: 15 0RF metoprolol tartrate 50 mg tablet 50 mg PO Q12H Patient Comments: takes half tablet in morning and night amlodipine 10 mg tablet 10 mg PO DAILY Patient Comments: takes half tablet/day Primary Care Provider: Luzma Palencia Referrals: Luzma Palencia MD [Primary Care Provider] - Jae Lee JUNIOR ASSISTANT MANAGER, JUNIOR ASSISTANT MANAGER-C [Med Staff - [facility] Prof] - As soon as possible Disposition Disposition: Home, Self Care Discharge Date/Time: 11/07/23 00:04
--- NOTE | 2023-11-06 20:51 | EKG12_ITS ---
Test Reason : DYSRHYTHMIA Blood Pressure : / mmHG Vent. Rate : 068 BPM Atrial Rate : 068 BPM P-R Int : 136 ms QRS Dur : 080 ms QT Int : 416 ms P-R-T Axes : 069 036 048 degrees QTc Int : 442 ms Normal sinus rhythm Normal ECG Confirmed by Miguel Angel Bosch ([id number]), editor farm journal RHONDA BRADFORD ([id number]) on 11/07/2023 10:01:56 AM Referred By: YESSICA Confirmed By:Miguel Angel Bosch
[2023-11-06 21:00] LABS: Absolute Lymphocyte Count 0.97 X10^3/uL (0.83-4.51); Absolute Neutrophil Count 4.6 X10^3/uL (2.0-7.7); Basophil# 0.03 X10^3/uL; Basophil% 0.5 % (0-1); Eosinophil# 0.37 X10^3/uL; Eosinophils% 5.8 % (0-5); Hemoglobin 12.8 g/dL (12.0-15.0); Lymphocyte # 0.97 X10^3/ul (0.83-4.51); Lymphocyte % 15.2 % (19-41); Mean Corp Hgb Conc 32.8 g/dL (32-36); Mean Corpuscular Hgb 29.4 pg (27.0-32.0); Mean Corpuscular Volume 89.7 fL (81-99); Monocyte# 0.44 X10^3/uL; Monocyte% 6.9 % (0-10); NRBC Flagged by Analyzer 0 % (0-5); Neutrophil # 4.58 X10^3/uL (2.7-7.7); Neutrophil % 71.4 % (47-70); Platelet Count 200 K/mm3 (150-450); RBC Distribution Width CV 13.2 % (11.6-14.6); RBC Distribution Width SD 42.9 fl (35.1-43.9); Red Blood Count 4.35 M/mm3 (4.2-5.4); White Blood Count 6.4 K/mm3 (4.4-11.0)
--- NOTE | 2023-11-06 21:00 | RAD_ITS ---
INDICATION: chest pain EXAMINATION/TECHNIQUE: X-RAY - XR Chest 1 View COMPARISON: Chest x-ray October 01, 2023 and September 21, 2023. FINDINGS: LINES/DEVICES: None. LUNGS: Symmetric normal lung volumes. No airspace opacity or abnormal interstitial pattern. No nodule or mass. No pleural effusion or pneumothorax. MEDIASTINUM AND CARDIOVASCULAR STRUCTURES: Normal size and contour of the cardiomediastinal silhouette. No evidence of pulmonary vascular congestion. BONES AND SOFT TISSUES: No fracture or focal osseous lesion. RAD/Chest 1 View (Portable) IMPRESSION: 1. No radiographic evidence of acute cardiopulmonary disease. Electronically Signed: Miguel Angel Calero DO at 22:04 EDT ,
[2023-11-06 21:17] LABS: Anion Gap 6 (5-15); BUN 25 mg/dL (7-18); BUN/Creat Ratio 28.9 RATIO (10-20); Calcium,Total 9.1 mg/dL (8.5-10.1); Chloride 103 mmol/L (98-107); Creatinine, Serum 0.87 mg/dL (0.55-1.02); EST Glomerular Filtration Rate 67 mL/min (>60); Est Glom Filt Rate - Afr Amer 81 mL/min (>60); Glucose 160 mg/dL (74-106); Sodium Level 138 mmol/L (136-145); Troponin-I HS (w/2H Reflex) 10 pg/mL (3.0-54.0)
[2023-11-06 21:25] VITALS: BP 156/49; PULSE 64; RESP 16; O2SAT 97
[2023-11-06 22:57] LABS: Reflex Troponin-HS? (from REC) Y
[2023-11-06 23:00] VITALS: BP 150/62; PULSE 62; RESP 16; O2SAT 92
[2023-11-06 23:20] LABS: Troponin-I HS 12 pg/mL (3.0-54.0)
[2023-11-07 00:01] VITALS: BMI 49.1
[2023-11-07 00:02] VITALS: BP 150/62; PULSE 61; RESP 18; TEMP 35.8; O2SAT 97
== END 2023-11-07 00:04 | disposition home or self-care (01) ==
PROVIDERS: Emergency Provider Emergency Medicine; PCP Internal Medicine; Visit Provider Emergency Medicine
DX: R00.2 Palpitations (principal); E11.9 Type 2 diabetes mellitus without complications; R07.9 Chest pain, unspecified; I10 Essential (primary) hypertension; G47.33 Obstructive sleep apnea (adult) (pediatric); E66.9 Obesity, unspecified; Z86.718 Personal history of other venous thrombosis and embolism; Z87.891 Personal history of nicotine dependence
CPT/HCPCS: 71045; 80048; 84484; 85025; 93005; 99284; A4216

== ENCOUNTER 2023-11-07 15:41 | Emergency (ER) | payer MEDICARE, SELFPAY ==
[2023-11-07 15:43] VITALS: BP 198/103; PULSE 77; RESP 18; TEMP 36.2; O2SAT 99
--- NOTE | 2023-11-07 16:00 | EDS_ITS ---
HPI History of Present Illness Chief Complaint: Hyperglycemia Informant: patient Narrative Narrative: Patient presents secondary to concerns about her blood sugar. She was in the hospital/emergency room last evening being evaluated for some chest pressure and palpitations. She took her evening long-acting insulin late, approximate 1 AM. She took her normal morning insulin upon waking and took a slightly smaller dose of her quick acting insulin around 9 AM with breakfast. Around noon she was concerned that her blood sugars were dropping with numbers down in the 160s. She drank 2 regular Gatorade's and some orange juice. She now states that her blood sugars are fluctuating between high and low numbers. She has been getting numbers from the high 300s down to the 160s. She states she feels generally weak. She is not having any chest pressure or palpitations today. [facility] Medical History (Updated 11/07/23 @ 17:[address] Tierney Francis MD) Abnormal EKG Asthma Bimalleolar ankle fracture Charcot's joint of left foot Diabetes mellitus, type II Essential hypertension GERD (gastroesophageal reflux disease) History of DVT (deep vein thrombosis) Hyperglycemia due to type 2 diabetes mellitus Hyperlipidemia THAIS (obstructive sleep apnea) Palpitations Paroxysmal SVT (supraventricular tachycardia) Premature atrial contractions Premature ventricular contraction Sinus bradycardia Home Medications aspirin 81 mg tablet,delayed release 81 mg PO DAILY heart health 11/24/17 [History Last Taken 01/19/19 16:00] ramipril 10 mg capsule 10 mg PO BID HEART 01/19/19 [History Last Taken 01/19/19 21:00] cholecalciferol (vitamin D3) 1,250 mcg (50,000 unit) capsule 1,250 mcg PO QWEEK SUPPLEMENT 12/03/19 [History Last Taken Unknown] furosemide 20 mg tablet 20 mg PO DAILY PRN water pill 01/22/21 [History Last Taken Unknown] budesonide-formoterol HFA 160 mcg-4.5 mcg/actuation aerosol inhaler 2 puff inhalation BID ASTHMA 12/21/21 [History Last Taken Unknown] zolpidem 5 mg tablet 2.5 mg PO QHS PRN Insomnia 02/11/22 [History Last Taken Unknown] insulin lispro 100 unit/mL subcutaneous solution 6 unit subcut TIDCM dm 06/22/22 [History Last Taken Unknown] omeprazole magnesium 20 mg tablet,delayed release (Prilosec OTC) 20 mg PO DAILY GERD 06/22/22 [History Last Taken Unknown] albuterol sulfate 90 mcg/actuation aerosol inhaler (Ventolin HFA) 2 puff inhalation 4XD PRN sob #8.5 grams 07/14/22 [Rx Last Taken Unknown] metoprolol tartrate 25 mg tablet 25 mg PO BID BLOOD PRESSURE 07/17/22 [History Last Taken Unknown] acetaminophen 325 mg tablet (Tylenol) 650 mg (2 x 325 mg) PO Q6H PRN PRN Pain 1- 10 Or Fever >100.7 #0 tabs 08/02/22 [Rx Last Taken Unknown] insulin glargine-yfgn 100 unit/mL (3 mL) subcutaneous pen 24 unit (0.24 mL) subcut BID #15 mL 08/02/22 [Rx Last Taken Unknown] insulin lispro 100 unit/mL subcutaneous pen (Humalog KwikPen (U-100) Insulin) See Protocol subcut ACHS #0 mL 08/02/22 [Rx Last Taken Unknown] amlodipine 10 mg tablet 10 mg PO DAILY 10/01/23 [History Last Taken Unknown] metoprolol tartrate 50 mg tablet 50 mg PO Q12H heart rate, BP 10/01/23 [History Last Taken Unknown] insulin NPH isoph U-100 human 100 unit/mL subcutaneous suspension (Novolin N NPH U-100 Insulin isophane) unit subcut 11/07/23 [History Last Taken Unknown] insulin glargine 100 unit/mL (3 mL) subcutaneous pen (Lantus Solostar U-100 Insulin) 27 unit subcut QHS 11/07/23 [History Last Taken Unknown] Allergy/AdvReac Type Severity Reaction Status Date / Time hydromorphone Allergy Severe Anaphylaxis Verified 11/07/23 15:42 tramadol Allergy Severe Anaphylaxis Verified 11/07/23 15:42 amiodarone Allergy Intermediate Swelling Verified 11/07/23 15:42 [place] And Derivatives Allergy Intermediate Hives Verified 11/07/23 15:42 morphine Allergy Intermediate confusion Verified 11/07/23 15:42 moxifloxacin Allergy Intermediate Shortness Verified 11/07/23 15:42 of breath nabumetone Allergy Intermediate damaged Verified 11/07/23 15:42 kidney penicillin G Allergy Intermediate TURNS BLUE Verified 11/07/23 15:42 propoxyphene Allergy Intermediate PT UNSURE Verified 11/07/23 15:42 OF REACTION amlodipine Allergy Mild Abd Verified 11/07/23 15:42 cramps/diarrhea desloratadine Allergy Mild headache Verified 11/07/23 15:42 glutamine Allergy Mild Itching Verified 11/07/23 15:42 [From Airborne (ascorbate sodium)] herbal complex no.124 Allergy Mild Itching Verified 11/07/23 15:42 [From Airborne (ascorbate sodium)] hydrocodone [From Anthony] Allergy Mild dystonia Verified 11/07/23 15:42 lysine HCl Allergy Mild Itching Verified 11/07/23 15:42 [From Airborne (ascorbate sodium)] multivitamin with minerals Allergy Mild Itching Verified 11/07/23 15:42 [From Airborne (ascorbate sodium)] pravastatin Allergy Unknown unknown Verified 11/07/23 15:42 rosuvastatin [From Crestor] Allergy Unknown myalgias Verified 11/07/23 15:42 simvastatin Allergy Unknown unknown Verified 11/07/23 15:42 escitalopram Allergy Other Verified 11/07/23 15:42 hydrochlorothiazide Allergy Other Verified 11/07/23 15:42 Yfbikvo-VIS-McR Reductase AdvReac Severe myalgias Verified 11/07/23 15:42 Inhibitor [Yksqtry-Tcl-Dux Reductase Inhibitor] amoxicillin [From Augmentin] AdvReac Other Verified 11/07/23 15:42 clavulanic acid AdvReac Other Verified 11/07/23 15:42 [From Augmentin] codeine AdvReac Nausea Verified 11/07/23 15:42 naproxen [From Naprosyn] AdvReac Nausea Verified 11/07/23 15:42 Family History Mother Aortic stenosis Presence of permanent cardiac pacemaker Surgical History History of cholecystectomy History of herniorrhaphy History of tonsillectomy Status post ORIF of fracture of ankle Social History household members: spouse Smoking Status: Former smoker alcohol intake: never substance use type: does not use caffeine: Yes Type: coffee Number of servings: 3 ROS ROS ED Constitutional Constitutional ED: Denies chills or fever(s) Eyes Eyes: Denies change in vision ENT ENT ED: Denies rhinorrhea or sore throat Cardiovascular Cardiovascular: Denies chest pain or palpitations Respiratory/Chest Respiratory/Chest: Denies cough or dyspnea Gastrointestinal Gastrointestinal: Denies abdominal pain, nausea or vomiting Musculoskeletal Musculoskeletal: Denies back pain or extremity pain Integumentary Denies Abrasions or rash Neurologic Neurologic: Reports weakness; Denies headache(s) Psychiatric Psychiatric: Reports anxiety; Denies depression Allergic/Immunologic Allergic/Immunologic ED: Denies lip swelling or urticaria EXAM Physical Exam Const Vital Signs: 11/07/23 15:43 11/07/23 16:00 Temperature 97.1 F L Temperature Source Temporal Pulse Rate 77 Respiratory Rate 18 Respiratory Effort Normal Non-Labored Respiratory Pattern Normal Blood Pressure 198/103 H Blood Pressure Mean 134 Pulse Ox 99 Oxygen Delivery Method Room Air Positive well nourished and well developed General Appearance ED: well developed HEENT Reports moist mucous membranes Eyes EOMs intact bilaterally Chest Wall inspection of chest normal and palpation of chest normal Resp normal respiratory effort and clear to auscultation bilaterally Cardio regular rate and regular rhythm GI non-tender Palpation: soft Neuro oriented x3 and no sensory deficits noted Psych Mood & Affect: anxious Skin no rashes or lesions noted MDM MDM MDM Narrative Medical decision making narrative: Blood sugars 316 on arrival. Patient given a liter of IV fluids and we will recheck her BGT. After 1 L of IV fluid blood sugars 282. It is currently 5:30 PM. Patient plans to go home and eat dinner. I recommend she follow her sliding scale which she has posted on her refrigerator for dinner tonight. My fear is if I give her insulin now she will not know how much to take with her meal. We did discuss how short acting insulin works and it should be taken with her meals. I will also refer her to endocrinology for follow-up for additional diabetes education. Patient is comfortable with the plan. Lab Data Labs: Laboratory Results - last 24 hr 11/07/23 15:51 POC Glucose 316 H Discharge Plan Triage Chief Complaint: Hyperglycemia ED Provider: Teirney Francis Dx/Rx/DC Orders Clinical Impression: Hyperglycemia Instructions: ED Diabetic Hyperglycemia Prescriptions: No Action aspirin 81 mg tablet,delayed release (DR/EC) 81 mg PO DAILY Patient Comments: only takes sometimes cholecalciferol (vitamin D3) 1,250 mcg (50,000 unit) capsule 1,250 mcg PO QWEEK furosemide 20 mg tablet 20 mg PO DAILY PRN (Reason: water pill) insulin lispro 100 unit/mL solution 6 unit subcut TIDCM Protocol: 4. Sliding Scale Insulin High-Med Dosing Condition: 150-199 mg/dl = 2 units Condition: 200-259 mg/dl = 4 units Condition: 260-324 mg/dl = 6 units Condition: 325-374 mg/dl = 8 units Condition: 375-409 mg/dl = 10 units Condition: 410-449 mg/dl = 11 units Condition: Greater than 449 call physician Protocol Text: - Use for Total Daily Dose of Insulin 56-80 units - Patient who are insulin resistant or septic HIGH MEDIUM DOSING ALGORITHM Patient Comments: INJECT 3 TO 10 UNITS SUBCUTANEOUSLY BEFORE MEALS DIRECTED budesonide-formoterol 160-4.5 mcg/actuation HFA aerosol inhaler 2 puff inhalation BID omeprazole magnesium [Prilosec OTC] 20 mg tablet,delayed release (DR/EC) 20 mg PO DAILY ramipril 10 MG capsule 10 mg PO BID Patient Comments: TAKE 1 CAPSULE BY MOUTH TWICE DAILY zolpidem 5 mg Tablet 2.5 mg PO QHS PRN (Reason: Insomnia) albuterol sulfate [Ventolin HFA] 90 mcg/actuation HFA aerosol inhaler 2 puff INHALATION 4XD PRN (Reason: sob) Qty: 8.5 0RF Rx Instructions: use four times a day for the next seven days, then use every 6 hours as needed for shortness of breath metoprolol tartrate 25 mg tablet 25 mg PO BID acetaminophen [Tylenol] 325 mg Tablet 650 mg PO Q6H PRN PRN (Reason: Pain 1-10 Or Fever >100.7) Qty: 0 0RF insulin lispro [Humalog KwikPen Insulin] 100 unit/mL Insulin Pen See Protocol subcut ACHS Qty: 0 0RF Protocol: 4. Sliding Scale Insulin High-Med Dosing Condition: 150-199 mg/dl = 2 units Condition: 200-259 mg/dl = 4 units Condition: 260-324 mg/dl = 6 units Condition: 325-374 mg/dl = 8 units Condition: 375-409 mg/dl = 10 units Condition: 410-449 mg/dl = 11 units Condition: Greater than 449 call physician Protocol Text: - Use for Total Daily Dose of Insulin 56-80 units - Patient who are insulin resistant or septic HIGH MEDIUM DOSING ALGORITHM insulin glargine-yfgn 100 unit/mL (3 mL) insulin pen 24 unit subcut BID Qty: 15 0RF metoprolol tartrate 50 mg tablet 50 mg PO Q12H Patient Comments: takes half tablet in morning and night amlodipine 10 mg tablet 10 mg PO DAILY Patient Comments: takes half tablet/day Novolin N NPH U-100 Insulin 100 unit/mL suspension subcut insulin glargine [Lantus Solostar U-100 Insulin] 100 unit/mL (3 mL) insulin pen 27 unit subcut QHS Primary Care Provider: Luzma Palencia Referrals: Luzma Palencia MD [Primary Care Provider] - Chris Peters MD [Med Staff - Courtesy Staff] - As Needed Disposition Disposition: Home, Self Care
[2023-11-07 16:11] LABS: Bedside Glucose 316 mg/dL (74-106)
[2023-11-07] MEDS: 0.9% Normal Saline (1000mL) 1,000 ML 1000 ML IV (16:23)
[2023-11-07 17:38] LABS: Bedside Glucose 282 mg/dL (74-106)
[2023-11-07 17:42] VITALS: BP 161/65; PULSE 74; RESP 16; O2SAT 95
[2023-11-07 17:47] VITALS: BP 161/65; PULSE 74; RESP 16; O2SAT 95
== END 2023-11-07 17:48 | disposition home or self-care (01) ==
PROVIDERS: Emergency Provider Emergency Medicine; PCP Internal Medicine; Visit Provider Emergency Medicine
DX: E11.65 Type 2 diabetes mellitus with hyperglycemia (principal); G47.33 Obstructive sleep apnea (adult) (pediatric); Z87.891 Personal history of nicotine dependence; Z86.718 Personal history of other venous thrombosis and embolism
CPT/HCPCS: 82962; 99282; J7030; A4216

== ENCOUNTER 2023-11-28 18:51 | Emergency (ER) | payer MEDICARE, SELFPAY ==
[2023-11-28 18:51] VITALS: BP 117/103; PULSE 109; RESP 16; TEMP 37.1; O2SAT 98
--- NOTE | 2023-11-28 19:54 | EX.ED.DYSGE1 ---
HPI History of Present Illness Chief Complaint: Hyperglycemia Informant: patient Onset/Context/Timing Onset: Today Narrative Narrative: Patient presents secondary to concerns that her blood sugars going up over 400. She has a history of type 2 diabetes and is on insulin. The last several days her journal indicates her blood sugars have been in the 200 range at the highest. This afternoon blood sugars started climbing to as high as 460 at home. She did drink half a bottle of regular Gatorade and ate a yogurt. She does report she is urinating frequently, but states she is also drinking a lot of water to try to get her blood sugar down. She denies URI symptoms. No fever. She is scheduled for a first-time visit with endocrinology next week. [facility] Medical History Abnormal EKG Asthma Bimalleolar ankle fracture Charcot's joint of left foot Diabetes mellitus, type II Essential hypertension GERD (gastroesophageal reflux disease) History of DVT (deep vein thrombosis) Hyperglycemia due to type 2 diabetes mellitus Hyperlipidemia THAIS (obstructive sleep apnea) Palpitations Paroxysmal SVT (supraventricular tachycardia) Premature atrial contractions Premature ventricular contraction Sinus bradycardia Home Medications aspirin 81 mg tablet,delayed release 81 mg PO DAILY heart health 11/24/17 [History Last Taken 01/19/19 16:00] ramipril 10 mg capsule 10 mg PO BID HEART 01/19/19 [History Last Taken 01/19/19 21:00] cholecalciferol (vitamin D3) 1,250 mcg (50,000 unit) capsule 1,250 mcg PO QWEEK SUPPLEMENT 12/03/19 [History Last Taken Unknown] furosemide 20 mg tablet 20 mg PO DAILY PRN water pill 01/22/21 [History Last Taken Unknown] budesonide-formoterol HFA 160 mcg-4.5 mcg/actuation aerosol inhaler 2 puff inhalation BID ASTHMA 12/21/21 [History Last Taken Unknown] zolpidem 5 mg tablet 2.5 mg PO QHS PRN Insomnia 02/11/22 [History Last Taken Unknown] insulin lispro 100 unit/mL subcutaneous solution 6 unit subcut TIDCM dm 06/22/22 [History Last Taken Unknown] omeprazole magnesium 20 mg tablet,delayed release (Prilosec OTC) 20 mg PO DAILY GERD 06/22/22 [History Last Taken Unknown] acetaminophen 325 mg tablet (Tylenol) 650 mg (2 x 325 mg) PO Q6H PRN PRN Pain 1-10 Or Fever >100.7 #0 tabs 08/02/22 [Rx Last Taken Unknown] amlodipine 10 mg tablet 5 mg PO DAILY 10/01/23 [History Last Taken Unknown] metoprolol tartrate 50 mg tablet 25 mg PO Q12H heart rate, BP 10/01/23 [History Last Taken Unknown] insulin glargine 100 unit/mL (3 mL) subcutaneous pen (Lantus Solostar U-100 Insulin) 27 unit subcut QHS 11/07/23 [History Last Taken Unknown] Allergy/AdvReac Type Severity Reaction Status Date / Time hydromorphone Allergy Severe Anaphylaxis Verified 11/28/23 18:53 tramadol Allergy Severe Anaphylaxis Verified 11/28/23 18:53 amiodarone Allergy Intermediate Swelling Verified 11/28/23 18:53 [place] And Derivatives Allergy Intermediate Hives Verified 11/28/23 18:53 morphine Allergy Intermediate confusion Verified 11/28/23 18:53 moxifloxacin Allergy Intermediate Shortness Verified 11/28/23 18:53 of breath nabumetone Allergy Intermediate damaged Verified 11/28/23 18:53 kidney penicillin G Allergy Intermediate TURNS BLUE Verified 11/28/23 18:53 propoxyphene Allergy Intermediate PT UNSURE Verified 11/28/23 18:53 OF REACTION amlodipine Allergy Mild Abd Verified 11/28/23 18:53 cramps/diarrhea desloratadine Allergy Mild headache Verified 11/28/23 18:53 glutamine Allergy Mild Itching Verified 11/28/23 18:53 [From Airborne (ascorbate sodium)] herbal complex no.124 Allergy Mild Itching Verified 11/28/23 18:53 [From Airborne (ascorbate sodium)] hydrocodone [From [place]] Allergy Mild dystonia Verified 11/28/23 18:53 lysine HCl Allergy Mild Itching Verified 11/28/23 18:53 [From Airborne (ascorbate sodium)] multivitamin with minerals Allergy Mild Itching Verified 11/28/23 18:53 [From Airborne (ascorbate sodium)] pravastatin Allergy Unknown unknown Verified 11/28/23 18:53 rosuvastatin [From Crestor] Allergy Unknown myalgias Verified 11/28/23 18:53 simvastatin Allergy Unknown unknown Verified 11/28/23 18:53 escitalopram Allergy Other Verified 11/28/23 18:53 hydrochlorothiazide Allergy Other Verified 11/28/23 18:53 Ygnccbq-RVS-RtJ Reductase AdvReac Severe myalgias Verified 11/28/23 18:53 Inhibitor [Cxtzmob-Gdq-Jdu Reductase Inhibitor] amoxicillin [From Augmentin] AdvReac Other Verified 11/28/23 18:53 clavulanic acid AdvReac Other Verified 11/28/23 18:53 [From Augmentin] codeine AdvReac Nausea Verified 11/28/23 18:53 naproxen [From Naprosyn] AdvReac Nausea Verified 11/28/23 18:53 oseltamivir [From Tamiflu] AdvReac HALLUCINATI Verified 11/28/23 18:53 ONS Family History Mother Aortic stenosis Presence of permanent cardiac pacemaker Surgical History History of cholecystectomy History of herniorrhaphy History of tonsillectomy Status post ORIF of fracture of ankle Social History household members: spouse Smoking Status: Former smoker alcohol intake: never substance use type: does not use caffeine: Yes Type: coffee Number of servings: 3 ROS ROS ED Constitutional Constitutional ED: Denies chills or fever(s) Eyes Eyes: Denies discharge from eye(s) ENT ENT ED: Denies discharge from eye(s), rhinorrhea or sore throat Cardiovascular Cardiovascular: Denies chest pain or palpitations Respiratory/Chest Respiratory/Chest: Denies cough or dyspnea Gastrointestinal Gastrointestinal: Denies abdominal pain, nausea or vomiting Genitourinary Genitourinary ED: Reports urinary frequency; Denies dysuria Musculoskeletal Musculoskeletal: Denies back pain or extremity pain Integumentary Denies Abrasions or rash Neurologic Neurologic: Denies headache(s) or weakness Allergic/Immunologic Allergic/Immunologic ED: Denies lip swelling or urticaria EXAM Physical Exam Const Vital Signs: 11/28/23 18:51 11/28/23 20:08 11/28/23 20:51 Temperature 98.7 F Temperature Source Temporal Pulse Rate 109 H 70 Respiratory Rate 16 16 Respiratory Pattern Normal Blood Pressure 117/103 H 149/78 H Blood Pressure Mean 107 101 Pulse Ox 98 98 Oxygen Delivery Method Room Air Room Air 11/28/23 22:00 11/28/23 23:31 Temperature Temperature Source Pulse Rate 66 69 Respiratory Rate 16 16 Respiratory Pattern Blood Pressure 133/80 H 133/61 H Blood Pressure Mean 97 85 Pulse Ox 96 99 Oxygen Delivery Method Room Air Room Air Positive well nourished and well developed General Appearance ED: well developed HEENT Reports moist mucous membranes Chest Wall inspection of chest normal and palpation of chest normal Resp normal respiratory effort and clear to auscultation bilaterally Cardio regular rate and regular rhythm GI non-tender Palpation: soft Neuro oriented x3 Neuro Narrative: No focal neurologic deficit Psych mental status grossly normal MDM MDM MDM Narrative Medical decision making narrative: IV line established. Patient given a liter of IV fluids. Labwork obtained to evaluate for leukocytosis, anemia, and electrolyte derangement. History & Record Review Discussion w/independent historian: Patient and Significant other Additional record(s) reviewed:: Prior ED visit and Prior labs Lab Data Attestation: I reviewed the patient's lab results. Labs: Laboratory Results - last 24 hr 11/28/23 11/28/23 21:34 Unknown WBC 5.6 RBC 4.36 Hgb 12.5 Hct 39.3 MCV 90.1 MCH 28.7 MCHC 31.8 L RDW Std Deviation 41.8 RDW Coeff of Madalyn 12.7 Plt Count 181 MPV 12.4 H Immature Gran % (Auto) 0.200 Neut % (Auto) 71.5 H Lymph % (Auto) 15.1 L [place] % (Auto) 8.2 Eos % (Auto) 4.6 Baso % (Auto) 0.4 Absolute Neuts (auto) 4.0 Absolute Lymphs (auto) 0.85 Nucleated RBC % 0 Sodium 136 Potassium 3.9 Chloride 102 Carbon Dioxide 31.0 Anion Gap 3 L BUN 16 Creatinine 0.88 Estim Creat Clear Calc 84.86 Est GFR (MDRD) Af Amer 80 Est GFR (MDRD) Non-Af 66 BUN/Creatinine Ratio 18.2 Glucose 325 H Calcium 9.1 POC Glucose 323 H Treatment and Re-Evaluation :: CBC was normal white count 5.6 with a hemoglobin of 12.5. Chemistry studies reveal normal renal function. Glucose is 325. After a liter of IV fluids repeat blood sugar is obtained and is 323. Patient received 4 units of subcu insulin. 45 minutes after receiving insulin her blood sugar still 309. It is currently 11:45 PM and patient is planning to go home and take her bedtime dose of insulin anyway. I would rather let her run a little high at this time and take her normal bedtime insulin. Patient will continue her glucose journal and follow-up with endocrinology next week as scheduled. Discharge Plan Triage Chief Complaint: Hyperglycemia ED Provider: Tierney Francis Dx/Rx/DC Orders Clinical Impression: Hyperglycemia Instructions: ED Diabetic Hyperglycemia Prescriptions: No Action aspirin 81 mg tablet,delayed release (DR/EC) 81 mg PO DAILY Patient Comments: only takes sometimes cholecalciferol (vitamin D3) 1,250 mcg (50,000 unit) capsule 1,250 mcg PO QWEEK furosemide 20 mg tablet 20 mg PO DAILY PRN (Reason: water pill) insulin lispro 100 unit/mL solution 6 unit subcut TIDCM Protocol: 4. Sliding Scale Insulin High-Med Dosing Condition: 150-199 mg/dl = 2 units Condition: 200-259 mg/dl = 4 units Condition: 260-324 mg/dl = 6 units Condition: 325-374 mg/dl = 8 units Condition: 375-409 mg/dl = 10 units Condition: 410-449 mg/dl = 11 units Condition: Greater than 449 call physician Protocol Text: - Use for Total Daily Dose of Insulin 56-80 units - Patient who are insulin resistant or septic HIGH MEDIUM DOSING ALGORITHM Patient Comments: INJECT 3 TO 10 UNITS SUBCUTANEOUSLY BEFORE MEALS DIRECTED budesonide-formoterol 160-4.5 mcg/actuation HFA aerosol inhaler 2 puff inhalation BID omeprazole magnesium [Prilosec OTC] 20 mg tablet,delayed release (DR/EC) 20 mg PO DAILY ramipril 10 MG capsule 10 mg PO BID Patient Comments: TAKE 1 CAPSULE BY MOUTH TWICE DAILY zolpidem 5 mg Tablet 2.5 mg PO QHS PRN (Reason: Insomnia) acetaminophen [Tylenol] 325 mg Tablet 650 mg PO Q6H PRN PRN (Reason: Pain 1-10 Or Fever >100.7) Qty: 0 0RF metoprolol tartrate 50 mg tablet 25 mg PO Q12H Patient Comments: takes half tablet in morning and night amlodipine 10 mg tablet 5 mg PO DAILY Patient Comments: takes half tablet/day insulin glargine [Lantus Solostar U-100 Insulin] 100 unit/mL (3 mL) insulin pen 27 unit subcut Q Primary Care Provider: Luzma Palencia Referrals: Luzma Palencia MD [Primary Care Provider] - Activity Restrictions/Additional Instructions: Follow-up with endocrinology next week as scheduled. Disposition Disposition: Home, Self Care
[2023-11-28 20:06] VITALS: BMI 53.1
[2023-11-28] MEDS: 0.9% Normal Saline (1000mL) 1,000 ML 1000 ML IV (20:07)
[2023-11-28 20:23] LABS: Absolute Lymphocyte Count 0.85 X10^3/uL (0.83-4.51); Basophil# 0.02 X10^3/uL; Basophil% 0.4 % (0-1); Eosinophil# 0.26 X10^3/uL; Eosinophils% 4.6 % (0-5); Hematocrit 39.3 % (37-47); Hemoglobin 12.5 g/dL (12.0-15.0); Lymphocyte # 0.85 X10^3/ul (0.83-4.51); Lymphocyte % 15.1 % (19-41); Mean Corp Hgb Conc 31.8 g/dL (32-36); Mean Corpuscular Hgb 28.7 pg (27.0-32.0); Mean Corpuscular Volume 90.1 fL (81-99); Mean Platelet Vol. 12.4 fl (6.2-12.0); Monocyte# 0.46 X10^3/uL; Monocyte% 8.2 % (0-10); NRBC Flagged by Analyzer 0 % (0-5); Neutrophil # 4.04 X10^3/uL (2.7-7.7); Neutrophil % 71.5 % (47-70); Platelet Count 181 K/mm3 (150-450); RBC Distribution Width CV 12.7 % (11.6-14.6); RBC Distribution Width SD 41.8 fl (35.1-43.9); Red Blood Count 4.36 M/mm3 (4.2-5.4); White Blood Count 5.6 K/mm3 (4.4-11.0)
[2023-11-28 20:51] VITALS: BP 149/78; PULSE 70; RESP 16; O2SAT 98
[2023-11-28 20:56] LABS: Anion Gap 3 (5-15); BUN 16 mg/dL (7-18); BUN/Creat Ratio 18.2 RATIO (10-20); Calcium,Total 9.1 mg/dL (8.5-10.1); Chloride 102 mmol/L (98-107); Creatinine, Serum 0.88 mg/dL (0.55-1.02); EST Glomerular Filtration Rate 66 mL/min (>60); Est Glom Filt Rate - Afr Amer 80 mL/min (>60); Estimated Creatinine Clearance 84.86 ml/min; Glucose 325 mg/dL (74-106); Potassium 3.9 mmol/L (3.5-5.1); Sodium Level 136 mmol/L (136-145)
[2023-11-28 21:58] LABS: Bedside Glucose 323 mg/dL (74-106)
[2023-11-28 22:00] VITALS: BP 133/80; PULSE 66; RESP 16; O2SAT 96
[2023-11-28] MEDS: Insulin Lispro 100 UNIT/ML INSULN.PEN SC (22:51)
[2023-11-28 23:31] VITALS: BP 133/61; PULSE 69; RESP 16; O2SAT 99
[2023-11-29] VITALS: BP 130/59; PULSE 85; RESP 16; TEMP 37.1; O2SAT 99
[2023-11-29 00:03] LABS: Bedside Glucose 309 mg/dL (74-106)
== END 2023-11-29 00:04 | disposition home or self-care (01) ==
PROVIDERS: Emergency Provider Emergency Medicine; PCP Internal Medicine; Visit Provider Emergency Medicine
DX: E11.65 Type 2 diabetes mellitus with hyperglycemia (principal); Z79.4 Long term (current) use of insulin; Z87.891 Personal history of nicotine dependence; Z79.82 Long term (current) use of aspirin
CPT/HCPCS: 80048; 82962; 85025; 96360; 99283; J7030; A4216

== ENCOUNTER 2023-12-07 15:36 | Emergency (ER) | payer MEDICARE, SELFPAY ==
[2023-12-07 15:37] VITALS: BP 147/65; PULSE 67; RESP 18; TEMP 36.6; O2SAT 94
--- NOTE | 2023-12-07 16:08 | CT_ITS ---
EXAM: CT ANGIOGRAPHY HEAD AND NECK WITH INTRAVENOUS CONTRAST CLINICAL INDICATION: light headed today TECHNIQUE: [place] [facility] [place]/head and neck CT angiography protocol performed with intravenous contrast. This CT exam was performed using one or more of the following dose reduction techniques: automated exposure control, adjustment of the mA and/or kV according to patient size, and/or use of iterative reconstruction technique. MIP reconstructed images were created and reviewed. CONTRAST: IV 100mL Isovue-300 COMPARISON: No relevant prior studies available. FINDINGS: HEAD: RIGHT ANTERIOR CEREBRAL ARTERY: Unremarkable. No occlusion or significant stenosis. Anterior communicating artery is present. No aneurysm. RIGHT MIDDLE CEREBRAL ARTERY: Unremarkable. No occlusion or significant stenosis. No aneurysm. RIGHT POSTERIOR CEREBRAL ARTERY: Unremarkable. No occlusion or significant stenosis. No aneurysm. RIGHT INTRACRANIAL INTERNAL CAROTID ARTERY: Unremarkable. No significant stenosis. No dissection or occlusion. RIGHT INTRACRANIAL VERTEBRAL ARTERY: Unremarkable. No significant stenosis. No dissection or occlusion. LEFT ANTERIOR CEREBRAL ARTERY: Unremarkable. No occlusion or significant stenosis. No aneurysm. LEFT MIDDLE CEREBRAL ARTERY: Unremarkable. No occlusion or significant stenosis. No aneurysm. LEFT POSTERIOR CEREBRAL ARTERY: Unremarkable. No occlusion or significant stenosis. No aneurysm. LEFT INTRACRANIAL INTERNAL CAROTID ARTERY: Unremarkable. No significant stenosis. No dissection or occlusion. LEFT INTRACRANIAL VERTEBRAL ARTERY: Unremarkable. No significant stenosis. No dissection or occlusion. BASILAR ARTERY: Unremarkable. No occlusion or significant stenosis. No aneurysm. OTHER VASCULATURE: No vascular malformation. NECK: RIGHT COMMON CAROTID ARTERY: Unremarkable. No significant stenosis. No dissection or occlusion. RIGHT EXTRACRANIAL INTERNAL CAROTID ARTERY: Unremarkable. No significant stenosis. No dissection or occlusion. RIGHT EXTERNAL CAROTID ARTERY: Unremarkable. No occlusion. RIGHT EXTRACRANIAL VERTEBRAL ARTERY: Unremarkable. No significant stenosis. No dissection or occlusion. LEFT COMMON CAROTID ARTERY: Unremarkable. No significant stenosis. No dissection or occlusion. LEFT EXTRACRANIAL INTERNAL CAROTID ARTERY: Unremarkable. No significant stenosis. No dissection or occlusion. LEFT EXTERNAL CAROTID ARTERY: Unremarkable. No occlusion. LEFT EXTRACRANIAL VERTEBRAL ARTERY: Unremarkable. No significant stenosis. No dissection or occlusion. BRACHIOCEPHALIC AND SUBCLAVIAN ARTERIES: Unremarkable as visualized. No occlusion or significant stenosis. LUNG APICES: Unremarkable as visualized. HEAD and NECK: BONES/JOINTS: Unremarkable. No discrete lytic or blastic abnormalities. SOFT TISSUES: Unremarkable. CAROTID STENOSIS REFERENCE USING NASCET CRITERIA: % ICA stenosis = (1 - narrowest ICA diameter/diameter of distal cervical ICA) x 100. Mild - <50% stenosis. Moderate - 50-69% stenosis. Severe - 70-94% stenosis. Near occlusion - 95-99% stenosis. Occluded - 100% stenosis. CT/CTA Head AND Neck W/ Contrast IMPRESSION: Negative CTA carotid and CTA brain. Electronically Signed: Efren Bonilla MD at 18:14 EDT ,
--- NOTE | 2023-12-07 16:09 | EDS_ITS ---
HPI History of Present Illness Chief Complaint: Dizziness Informant: patient and spouse/S.O. Onset/Context/Timing Onset: Today Context: Sudden Onset Quality and Location: Negative for Right Facial Droop, Left Facial Droop, Right Face Paresthesia, Left Face Parasthesia, Right Arm Parasthesia, Left Arm Parasthesia, Right Leg Parasthesia, Left Leg Parasthesia, Right Arm Weakness, Left Arm Weakness, Right Leg Weakness, Left Leg Weakness, Slurred Speech, Expressive Aphasia, Receptive Aphasia or Difficulty with Ambulation Current Severity: Gone Maximum Severity: Moderate Associated Symptoms Associated Symptoms: Negative for Headache, Nausea, Vomiting or Chest Pain Narrative Narrative: 78-year-old female history of diabetes and SVT. No history of TIA or CVA. Today she was in her kitchen standing cooking. [place]. Became a little dizzy which she described as lightheaded. And then it resolved. Lasted about 2 minutes. She has an upcoming carotid ultrasound in December. Currently she is symptom-free. She is normally in a wheelchair due to a prior injury to her right leg and Charcot joint of her left. She did check her blood sugar when this happened it was 218. She denies any recent illness. She denies any headache. No head trauma. Prior similar symptoms: No Recent Illness/Hospitalization: No PFSH PFSH Medical History Hyperglycemia due to type 2 diabetes mellitus THAIS (obstructive sleep apnea) Palpitations Sinus bradycardia Abnormal EKG Essential hypertension Premature atrial contractions Charcot's joint of left foot Asthma GERD (gastroesophageal reflux disease) History of DVT (deep vein thrombosis) Bimalleolar ankle fracture Paroxysmal SVT (supraventricular tachycardia) Premature ventricular contraction Hyperlipidemia Diabetes mellitus, type II Home Medications ?Medication ?Instructions ?Recorded ?Last Taken ?Type aspirin 81 mg tablet,delayed 81 mg PO DAILY heart health 11/24/17 01/19/19 16:00 History release ramipril 10 mg capsule 10 mg PO BID HEART 01/19/19 01/19/19 21:00 History cholecalciferol (vitamin D3) 1,250 1,250 mcg PO QWEEK SUPPLEMENT 12/03/19 Unknown History mcg (50,000 unit) capsule furosemide 20 mg tablet 20 mg PO DAILY PRN water pill 01/22/21 Unknown History budesonide-formoterol HFA 160 2 puff inhalation BID ASTHMA 12/21/21 Unknown History mcg-4.5 mcg/actuation aerosol inhaler zolpidem 5 mg tablet 2.5 mg PO QHS PRN Insomnia 02/11/22 Unknown History insulin lispro 100 unit/mL 6 unit subcut TIDCM dm 06/22/22 Unknown History subcutaneous solution omeprazole magnesium 20 mg 20 mg PO DAILY GERD 06/22/22 Unknown History tablet,delayed release (Prilosec OTC) acetaminophen 325 mg tablet 650 mg (2 x 325 mg) PO Q6H PRN PRN 08/02/22 Unknown Rx (Tylenol) Pain 1-10 Or Fever >100.7 #0 tabs amlodipine 10 mg tablet 5 mg PO DAILY 10/01/23 Unknown History metoprolol tartrate 50 mg tablet 25 mg PO Q12H heart rate, BP 10/01/23 Unknown History insulin glargine 100 unit/mL (3 27 unit subcut QHS 11/07/23 Unknown History mL) subcutaneous pen (Lantus Solostar U-100 Insulin) Allergy/AdvReac Type Severity Reaction Status Date / Time hydromorphone Allergy Severe Anaphylaxis Verified 12/07/23 15:40 tramadol Allergy Severe Anaphylaxis Verified 12/07/23 15:40 amiodarone Allergy Intermediate Swelling Verified 12/07/23 15:40 Kidder And Derivatives Allergy Intermediate Hives Verified 12/07/23 15:40 morphine Allergy Intermediate confusion Verified 12/07/23 15:40 moxifloxacin Allergy Intermediate Shortness Verified 12/07/23 15:40 of breath nabumetone Allergy Intermediate damaged Verified 12/07/23 15:40 kidney penicillin G Allergy Intermediate TURNS BLUE Verified 12/07/23 15:40 propoxyphene Allergy Intermediate PT UNSURE Verified 12/07/23 15:40 OF REACTION amlodipine Allergy Mild Abd Verified 12/07/23 15:40 cramps/diarrhea desloratadine Allergy Mild headache Verified 12/07/23 15:40 glutamine (From Airborne Allergy Mild Itching Verified 12/07/23 15:40 (ascorbate sodium)) herbal complex no.124 (From Allergy Mild Itching Verified 12/07/23 15:40 Airborne (ascorbate sodium)) hydrocodone (From [place]) Allergy Mild dystonia Verified 12/07/23 15:40 lysine HCl (From Airborne Allergy Mild Itching Verified 12/07/23 15:40 (ascorbate sodium)) multivitamin with minerals Allergy Mild Itching Verified 12/07/23 15:40 (From Airborne (ascorbate sodium)) pravastatin Allergy Unknown unknown Verified 12/07/23 15:40 rosuvastatin (From Crestor) Allergy Unknown myalgias Verified 12/07/23 15:40 simvastatin Allergy Unknown unknown Verified 12/07/23 15:40 escitalopram Allergy Other Verified 12/07/23 15:40 hydrochlorothiazide Allergy Other Verified 12/07/23 15:40 Dtjxxqu-FSE-BoH Reductase AdvReac Severe myalgias Verified 12/07/23 15:40 Inhibitor (Ouysiwb-Lpg-Xpt Reductase Inhibitor) amoxicillin (From Augmentin) AdvReac Other Verified 12/07/23 15:40 clavulanic acid (From AdvReac Other Verified 12/07/23 15:40 Augmentin) codeine AdvReac Nausea Verified 12/07/23 15:40 naproxen (From Naprosyn) AdvReac Nausea Verified 12/07/23 15:40 oseltamivir (From Tamiflu) AdvReac HALLUCINATI Verified 12/07/23 15:40 ONS Family History Mother Aortic stenosis Presence of permanent cardiac pacemaker Surgical History History of herniorrhaphy Status post ORIF of fracture of ankle History of tonsillectomy History of cholecystectomy Social History household members: spouse Smoking Status: Former smoker alcohol intake: never substance use type: does not use caffeine: Yes Type: coffee Number of servings: 3 ROS ROS ED ROS Narrative Denies headache. Denies recent illness. Review of Systems ROS Unobtainable: Denies due to encephalopathy Constitutional Constitutional ED: Denies chills or fever(s) Eyes Eyes: Denies blurry vision ENT ENT ED: Denies ear pain Cardiovascular Cardiovascular: Denies chest pain or palpitations Respiratory/Chest Respiratory/Chest: Denies cough or dyspnea Gastrointestinal Gastrointestinal: Denies abdominal pain Genitourinary Genitourinary ED: Denies dysuria or hematuria Musculoskeletal Musculoskeletal: Denies arthralgias or back pain Integumentary Denies abscess or Abrasions Neurologic Neurologic: Denies headache(s) Psychiatric Psychiatric: Denies anxiety or depression Endocrine Endocrinology: Denies polydipsia Hematologic/Lymphatic Hematologic/Lymphatic: Denies easy bleeding or easy bruising Allergic/Immunologic Allergic/Immunologic ED: Denies mouth swelling, urticaria or other EXAM Physical Exam Narrative Exam Narrative: 78-year-old female no acute distress vital signs stable afebrile. H EENT exam pupils round react to light. Extra motions are intact. Neck nontender. Lungs clear to auscultation. Heart regular rhythm rate about 70 no murmur. Chest wall nontender. Abdomen soft nontender. No peritoneal signs. Moving all 4 extremities. 5-5 rigging up worker strength. Dorsi plantarflexion intact. She has braces on both lower extremities which are chronic. She has no drift in the upper extremities. Neurologically she is awake and alert. Answer questions following commands. No facial droop. No slurred speech. Fingertip to nose within normal limits. Equal and symmetrical rigging up worker and dorsi and plantarflexion. NIH currently 0. Const Vital Signs: 12/07/23 15:37 12/07/23 16:47 12/07/23 17:30 Temperature 98 F Temperature Source Temporal Pulse Rate 67 52 L Respiratory Rate 18 16 Respiratory Effort Normal Non-Labored Respiratory Pattern Normal Blood Pressure 147/65 H 172/52 H Blood Pressure Mean 92 92 Pulse Ox 94 97 Oxygen Delivery Method Room Air Positive well nourished and well developed; Negative for cachectic, contractures or unkempt General Appearance ED: well developed; Negative for unkempt, cachectic or contractures Nutritional Appearance: Negative for cachectic HEENT Reports moist mucous membranes; Denies dry mucous membranes atraumatic; Negative for trauma Mouth ED: No dry mucous membranes Mouth: No dry mucous membranes Eyes PERRL and EOMs intact bilaterally General Eye ED: Negative for pale conjunctiva, scleral icterus or other Neck no lymphadenopathy, supple and no JVD General: Negative for tenderness Thyroid: Negative for other Chest Wall inspection of chest normal and palpation of chest normal Chest: Negative for other Resp normal respiratory effort and clear to auscultation bilaterally Effort and Inspection: Negative for retractions, pain with movement or other Auscultation: Negative for rales, rhonchi, wheezes or diminished lung sounds Cardio no murmurs Rate: regular rate; Negative for bradycardia or tachycardic Rhythm: regular rhythm; Negative for abnormal rhythm Heart Sounds: Negative for S1 normal or S2 normal GI normal to inspection, nondistended, normoactive bowel sounds, soft to palpation, non-tender, non-distended and no masses Inspection: Negative for abdominal distention Auscultation: normoactive bowel sounds Palpation: Negative for tender, guarding or rebound tenderness present Back/Spine no CVA tenderness Extremity Negative for normal to inspection Extremity Narrative: Bilateral lower extremity braces. General Extremety ED: Negative for deformity General Extremity: Negative for deformity Neuro oriented x3 and CN's II-XII intact bilaterally Sensorium / Orientation: alert, oriented to person, oriented to place and oriented to time; Negative for orientation impaired, confused, lethargic or stuporous Motor Exam: strength 5/5 throughout; Negative for general weakness or strength abnormal Psych mental status grossly normal Appearance: Negative for unkempt Attitude: No agitated Mood & Affect: Negative for depressed, anxious or tearful Attention / Concentration: Negative for other Skin no wounds General Skin Exam: Negative for jaundice Lesions: no lesions Rashes: no rashes Trauma: Negative for laceration or puncture NIHSS NIHSS Initial: 1a Level of Consciousness: 0 1b LOC Questions (Score 2 if aphasic/stupor): 0 1c LOC Commands (Only score 1st attempt): 0 2 Best Gaze (If aphasic, use reflexive mvmts.): 0 3 Visual: 0 4 Facial Palsy: 0 5 Motor Arm Right (UN = amputation/fusion): 0 5 Motor Arm Left: 0 6 Motor Leg Right: 0 6 Motor Leg Left: 0 7 Limb ataxia (Only + if out of proportion): 0 8 Sensory (Aphasia/stupor=0 or 1, coma=2): 0 9 Best Language: 0 10 Dysarthria (mute, coma=2, intubated=UN): 0 11 Extinction and Inattention (only scored if +): 0 Total Score: 0 MDM MDM MDM Narrative Medical decision making narrative: 78-year-old with an episode of lightheadedness. Has a normal exam currently and a normal NIH is 0. She has no focal findings. She has an upcoming ultrasound of her carotids she understands I can get that test to the ER even if she requested it. Will do a CTA head and neck. Along with screening labs. Repeat exam patient doing well at 6:46 PM. Exam normal and unchanged. She and I went over her test results labs, EKG and CAT scan should be discharged home with outpatient follow-up. History & Record Review Discussion w/independent historian: Patient and Family Additional record(s) reviewed:: Prior inpatient record, Prior outpatient record, Prior ED visit, Prior labs and No prior records Lab Data Attestation: I reviewed the patient's lab results. Lab results narrative: CBC unremarkable. White count 6. H&H 13 and 41. Platelets 199. Electrolytes unremarkable gap 7. BUN/creatinine 21 and 1. Glucose 168. CTA head and neck unremarkable. Labs: Laboratory Results - last 24 hr 12/07/23 16:43 WBC 6.1 RBC 4.68 Hgb 13.8 Hct 41.6 MCV 88.9 MCH 29.5 MCHC 33.2 RDW Std Deviation 41.8 RDW Coeff of Madalyn 12.9 Plt Count 199 MPV 12.5 H Immature Gran % (Auto) 0.200 Neut % (Auto) 70.1 H Lymph % (Auto) 16.6 L [place] % (Auto) 9.2 Eos % (Auto) 3.6 Baso % (Auto) 0.3 Absolute Neuts (auto) 4.3 Absolute Lymphs (auto) 1.01 Nucleated RBC % 0 Sodium 137 Potassium 3.7 Chloride 104 Carbon Dioxide 26.0 Anion Gap 7 BUN 21 H Creatinine 1.04 H Est GFR (MDRD) Af Amer 66 Est GFR (MDRD) Non-Af 54 L BUN/Creatinine Ratio 20.2 H Glucose 168 H Calcium 9.4 Radiography Diagnostic Testing: Clinical Impression(s) from Imaging Studies Head/Neck CTA 12/07/23 16:08 IMPRESSION: Negative CTA carotid and CTA brain. Electronically Signed: Efren Bonilla MD at 18:14 EDT , Rhythm Strip Rhythm Strip: Sinus Rhythm Rate: 63 Ectopy: None EKG Initial EKG: Attestation: I personally reviewed and interpreted this EKG as follows: Interpretation: Sinus Rhythm and No Acute Injury Pattern Comments: Normal sinus rhythm rate of 63 no acute signs of ND or ischemia. Discharge Plan Triage Chief Complaint: Dizziness ED Provider: Abdulaziz Stratton Dx/Rx/DC Orders Clinical Impression: Intermittent lightheadedness, History of diabetes mellitus Instructions: ED Dizziness, Uncertain Cause Prescriptions: No Action aspirin 81 mg tablet,delayed release (DR/EC) 81 mg PO DAILY Patient Comments: only takes sometimes cholecalciferol (vitamin D3) 1,250 mcg (50,000 unit) capsule 1,250 mcg PO QWEEK furosemide 20 mg tablet 20 mg PO DAILY PRN (Reason: water pill) insulin lispro 100 unit/mL solution 6 unit subcut TIDCM Protocol: 4. Sliding Scale Insulin High-Med Dosing Condition: 150-199 mg/dl = 2 units Condition: 200-259 mg/dl = 4 units Condition: 260-324 mg/dl = 6 units Condition: 325-374 mg/dl = 8 units Condition: 375-409 mg/dl = 10 units Condition: 410-449 mg/dl = 11 units Condition: Greater than 449 call physician Protocol Text: - Use for Total Daily Dose of Insulin 56-80 units - Patient who are insulin resistant or septic HIGH MEDIUM DOSING ALGORITHM Patient Comments: INJECT 3 TO 10 UNITS SUBCUTANEOUSLY BEFORE MEALS DIRECTED budesonide-formoterol 160-4.5 mcg/actuation HFA aerosol inhaler 2 puff inhalation BID omeprazole magnesium [Prilosec OTC] 20 mg tablet,delayed release (DR/EC) 20 mg PO DAILY ramipril 10 MG capsule 10 mg PO BID Patient Comments: TAKE 1 CAPSULE BY MOUTH TWICE DAILY zolpidem 5 mg Tablet 2.5 mg PO QHS PRN (Reason: Insomnia) acetaminophen [Tylenol] 325 mg Tablet 650 mg PO Q6H PRN PRN (Reason: Pain 1-10 Or Fever >100.7) Qty: 0 0RF metoprolol tartrate 50 mg tablet 25 mg PO Q12H Patient Comments: takes half tablet in morning and night amlodipine 10 mg tablet 5 mg PO DAILY Patient Comments: takes half tablet/day insulin glargine [Lantus Solostar U-100 Insulin] 100 unit/mL (3 mL) insulin pen 27 unit subcut QHS Primary Care Provider: Luzma Palencia Referrals: Luzma Palencia MD [Primary Care Provider] - As Needed Activity Restrictions/Additional Instructions: Your CAT scan, labs and EKG were unremarkable. Follow-up with your doctor as needed. Print Language: Chadian Disposition Disposition: Home, Self Care
--- NOTE | 2023-12-07 16:09 | EKG12_ITS ---
Test Reason : DIZZINESS Blood Pressure : / mmHG Vent. Rate : 063 BPM Atrial Rate : 063 BPM P-R Int : 142 ms QRS Dur : 084 ms QT Int : 448 ms P-R-T Axes : 071 033 030 degrees QTc Int : 458 ms Normal sinus rhythm with sinus arrhythmia Normal ECG Confirmed by Miguel Angel Bosch ([id number]), associate editor RHONDA BRADFORD ([id number]) on 12/08/2023 11:59:41 AM Referred By: Confirmed By:Miguel Angel Bosch
[2023-12-07 17:08] LABS: Absolute Lymphocyte Count 1.01 X10^3/uL (0.83-4.51); Absolute Neutrophil Count 4.3 X10^3/uL (2.0-7.7); Basophil# 0.02 X10^3/uL; Basophil% 0.3 % (0-1); Eosinophil# 0.22 X10^3/uL; Eosinophils% 3.6 % (0-5); Hematocrit 41.6 % (37-47); Hemoglobin 13.8 g/dL (12.0-15.0); Lymphocyte # 1.01 X10^3/ul (0.83-4.51); Lymphocyte % 16.6 % (19-41); Mean Corp Hgb Conc 33.2 g/dL (32-36); Mean Corpuscular Hgb 29.5 pg (27.0-32.0); Mean Corpuscular Volume 88.9 fL (81-99); Mean Platelet Vol. 12.5 fl (6.2-12.0); Monocyte# 0.56 X10^3/uL; Monocyte% 9.2 % (0-10); NRBC Flagged by Analyzer 0 % (0-5); Neutrophil # 4.27 X10^3/uL (2.7-7.7); Neutrophil % 70.1 % (47-70); Platelet Count 199 K/mm3 (150-450); RBC Distribution Width CV 12.9 % (11.6-14.6); RBC Distribution Width SD 41.8 fl (35.1-43.9); Red Blood Count 4.68 M/mm3 (4.2-5.4); White Blood Count 6.1 K/mm3 (4.4-11.0)
[2023-12-07 17:25] LABS: Anion Gap 7 (5-15); BUN 21 mg/dL (7-18); BUN/Creat Ratio 20.2 RATIO (10-20); Calcium,Total 9.4 mg/dL (8.5-10.1); Chloride 104 mmol/L (98-107); Creatinine, Serum 1.04 mg/dL (0.55-1.02); EST Glomerular Filtration Rate 54 mL/min (>60); Est Glom Filt Rate - Afr Amer 66 mL/min (>60); Glucose 168 mg/dL (74-106); Potassium 3.7 mmol/L (3.5-5.1); Sodium Level 137 mmol/L (136-145)
[2023-12-07 17:30] VITALS: BP 172/52; PULSE 52; RESP 16; O2SAT 97
[2023-12-07 18:55] VITALS: BP 148/54; PULSE 70; RESP 24; TEMP 36.6; O2SAT 98
== END 2023-12-07 19:10 | disposition home or self-care (01) ==
PROVIDERS: Emergency Provider Emergency Medicine; PCP Internal Medicine; Visit Provider Emergency Medicine
DX: R42 Dizziness and giddiness (principal); E11.9 Type 2 diabetes mellitus without complications; Z79.4 Long term (current) use of insulin; G47.33 Obstructive sleep apnea (adult) (pediatric); J45.909 Unspecified asthma, uncomplicated; Z79.82 Long term (current) use of aspirin; Z79.899 Other long term (current) drug therapy; Z86.718 Personal history of other venous thrombosis and embolism; Z87.891 Personal history of nicotine dependence
CPT/HCPCS: 70496; 70498; 80048; 85025; 93005; 99285; Q9967; A4216

== ENCOUNTER 2024-01-15 23:44 | Emergency (ER) | payer MEDICARE, SELFPAY ==
[2024-01-15 23:46] VITALS: BP 146/87; PULSE 73; RESP 18; TEMP 36.6; O2SAT 92; BMI 48.7
[2024-01-16 00:17] LABS: Bedside Glucose 282 mg/dL (74-106)
--- NOTE | 2024-01-16 00:18 | EDS_ITS ---
HPI History of Present Illness Chief Complaint: Hyperglycemia Informant: patient and spouse/S.O. Narrative Narrative: Patient is a 78-year-old female with past medical history of insulin-dependent diabetes. She states that she previously was told she is a type II diabetic but she has been following with a new doctor who she states upon further testing felt she is more a type I. She states after this change to her diagnosis they altered her insulin regimen. She states she checks it multiple times a day and was concerned this evening because the blood sugar was initially running low so she ate a bunch of food and then it was reading high and she took her nighttime Lantus but there was no immediate improvement to her sugar so she came in for evaluation. [facility] Medical History Hyperglycemia due to type 2 diabetes mellitus THAIS (obstructive sleep apnea) Palpitations Sinus bradycardia Abnormal EKG Essential hypertension Premature atrial contractions Charcot's joint of left foot Asthma GERD (gastroesophageal reflux disease) History of DVT (deep vein thrombosis) Bimalleolar ankle fracture Paroxysmal SVT (supraventricular tachycardia) Premature ventricular contraction Hyperlipidemia Diabetes mellitus, type II Home Medications ?Medication ?Instructions ?Recorded ?Last Taken ?Type aspirin 81 mg tablet,delayed 81 mg PO DAILY heart health 11/24/17 01/19/19 16:00 History release ramipril 10 mg capsule 10 mg PO BID HEART 01/19/19 01/19/19 21:00 History cholecalciferol (vitamin D3) 1,250 1,250 mcg PO QWEEK SUPPLEMENT 12/03/19 Unknown History mcg (50,000 unit) capsule furosemide 20 mg tablet 20 mg PO DAILY PRN water pill 01/22/21 Unknown History budesonide-formoterol HFA 160 2 puff inhalation BID ASTHMA 12/21/21 Unknown History mcg-4.5 mcg/actuation aerosol inhaler zolpidem 5 mg tablet 2.5 mg PO QHS PRN Insomnia 02/11/22 Unknown History insulin lispro 100 unit/mL 6 unit subcut TIDCM dm 06/22/22 Unknown History subcutaneous solution omeprazole magnesium 20 mg 20 mg PO DAILY GERD 06/22/22 Unknown History tablet,delayed release (Prilosec OTC) acetaminophen 325 mg tablet 650 mg (2 x 325 mg) PO Q6H PRN PRN 08/02/22 Unknown Rx (Tylenol) Pain 1-10 Or Fever >100.7 #0 tabs amlodipine 10 mg tablet 5 mg PO DAILY 10/01/23 Unknown History metoprolol tartrate 50 mg tablet 25 mg PO Q12H heart rate, BP 10/01/23 Unknown History insulin glargine 100 unit/mL (3 27 unit subcut QHS 11/07/23 Unknown History mL) subcutaneous pen (Lantus Solostar U-100 Insulin) Allergy/AdvReac Type Severity Reaction Status Date / Time hydromorphone Allergy Severe Anaphylaxis Verified 01/15/24 23:50 tramadol Allergy Severe Anaphylaxis Verified 01/15/24 23:50 amiodarone Allergy Intermediate Swelling Verified 01/15/24 23:50 Garibaldi And Derivatives Allergy Intermediate Hives Verified 01/15/24 23:50 morphine Allergy Intermediate confusion Verified 01/15/24 23:50 moxifloxacin Allergy Intermediate Shortness Verified 01/15/24 23:50 of breath nabumetone Allergy Intermediate damaged Verified 01/15/24 23:50 kidney penicillin G Allergy Intermediate TURNS BLUE Verified 01/15/24 23:50 propoxyphene Allergy Intermediate PT UNSURE Verified 01/15/24 23:50 OF REACTION amlodipine Allergy Mild Abd Verified 01/15/24 23:50 cramps/diarrhea desloratadine Allergy Mild headache Verified 01/15/24 23:50 glutamine (From Airborne Allergy Mild Itching Verified 01/15/24 23:50 (ascorbate sodium)) herbal complex no.124 (From Allergy Mild Itching Verified 01/15/24 23:50 Airborne (ascorbate sodium)) hydrocodone (From [place]) Allergy Mild dystonia Verified 01/15/24 23:50 lysine HCl (From Airborne Allergy Mild Itching Verified 01/15/24 23:50 (ascorbate sodium)) multivitamin with minerals Allergy Mild Itching Verified 01/15/24 23:50 (From Airborne (ascorbate sodium)) pravastatin Allergy Unknown unknown Verified 01/15/24 23:50 rosuvastatin (From Crestor) Allergy Unknown myalgias Verified 01/15/24 23:50 simvastatin Allergy Unknown unknown Verified 01/15/24 23:50 escitalopram Allergy Other Verified 01/15/24 23:50 hydrochlorothiazide Allergy Other Verified 01/15/24 23:50 Rfmnxuo-AXE-MbT Reductase AdvReac Severe myalgias Verified 01/15/24 23:50 Inhibitor (Dxvjkbe-Tmj-Mqv Reductase Inhibitor) amoxicillin (From Augmentin) AdvReac Other Verified 01/15/24 23:50 clavulanic acid (From AdvReac Other Verified 01/15/24 23:50 Augmentin) codeine AdvReac Nausea Verified 01/15/24 23:50 naproxen (From Naprosyn) AdvReac Nausea Verified 01/15/24 23:50 oseltamivir (From Tamiflu) AdvReac HALLUCINATI Verified 01/15/24 23:50 ONS Family History Mother Aortic stenosis Presence of permanent cardiac pacemaker Surgical History History of herniorrhaphy Status post ORIF of fracture of ankle History of tonsillectomy History of cholecystectomy Social History household members: spouse Smoking Status: Former smoker alcohol intake: never substance use type: does not use caffeine: Yes Type: coffee Number of servings: 3 ROS ROS ED Constitutional Constitutional ED: Denies chills or fever(s) Eyes Eyes: Denies blurry vision or change in vision ENT ENT ED: Denies sore throat Cardiovascular Cardiovascular: Denies chest pain Respiratory/Chest Respiratory/Chest: Denies cough or dyspnea Gastrointestinal Gastrointestinal: Denies abdominal pain, diarrhea, nausea or vomiting Genitourinary Genitourinary ED: Denies dysuria Musculoskeletal Musculoskeletal: Denies myalgias Integumentary Denies rash Neurologic Neurologic: Denies headache(s) Hematologic/Lymphatic Hematologic/Lymphatic: Denies easy bleeding or easy bruising EXAM Physical Exam Const Vital Signs: 01/15/24 23:46 01/15/24 23:50 01/16/24 00:25 Temperature 97.9 F 98 F Temperature Source Temporal Pulse Rate 73 76 Respiratory Rate 18 18 Respiratory Effort Normal Respiratory Pattern Normal Blood Pressure 146/87 H 143/78 H Blood Pressure Mean 106 99 Pulse Ox 92 94 Oxygen Delivery Method Room Air Positive well nourished, well developed and obese General Appearance ED: well developed; Negative for pallor Nutritional Appearance: obese HEENT HEENT Narrative: Normocephalic atraumatic Eyes PERRL and EOMs intact bilaterally General Eye ED: Negative for pale conjunctiva or scleral icterus Neck supple Resp normal respiratory effort and clear to auscultation bilaterally Cardio regular rate and regular rhythm Extremity Extremity Narrative: Bilateral PFO's in place Patient does have bilateral lower extremity edema Neuro oriented x3 and CN's II-XII intact bilaterally Sensorium / Orientation: alert Psych mental status grossly normal Skin no rashes or lesions noted General Skin Exam: Negative for jaundice or pallor MDM MDM MDM Narrative Medical decision making narrative: Patient arrived to the ER with stable vitals. She reported that her blood sugar was running low so she ate and then it was reading high and was not coming down with her nighttime insulin so she was concerned and presented for evaluation. Other than the blood sugar running high she did not have any complaints such as headache fevers chills dysuria abdominal pain or shortness of breath. Repeat evaluation shows a Accu-Chek of 282 which is improved from her reported 310 at home. The patient did report taking her nighttime Lantus and this reduction is consistent with taking the Lantus especially as is taken time for it to reduce. The patient does not have history exam findings concerning for infection raising her blood sugar nor is her high likelihood that this is DKA or HHS. I discussed with patient the potential for testing and further insulin use if needed but that as her blood sugar is trending down and Lantus will continue to work throughout the night I do not feel there is need for further workup. The patient feels comfortable with this as she now feels better that her blood sugar is on the downslope and therefore we discharged home and can follow-up with her family doctor for further evaluation. History & Record Review Discussion w/independent historian: Patient and Significant other Lab Data Labs: Laboratory Results - last 24 hr 01/15/24 23:58 POC Glucose 282 H Discharge Plan Triage Chief Complaint: Hyperglycemia ED Provider: Jesus Gilliland Dx/Rx/DC Orders Clinical Impression: Hyperglycemia, Essential hypertension, Hyperlipidemia, Insulin dependent diabetes mellitus Instructions: How to Check Your Blood Sugar, Diabetes- Measuring Glucose at Home Prescriptions: No Action aspirin 81 mg tablet,delayed release (DR/EC) 81 mg PO DAILY Patient Comments: only takes sometimes cholecalciferol (vitamin D3) 1,250 mcg (50,000 unit) capsule 1,250 mcg PO QWEEK furosemide 20 mg tablet 20 mg PO DAILY PRN (Reason: water pill) insulin lispro 100 unit/mL solution 6 unit subcut TIDCM Protocol: 4. Sliding Scale Insulin High-Med Dosing Condition: 150-199 mg/dl = 2 units Condition: 200-259 mg/dl = 4 units Condition: 260-324 mg/dl = 6 units Condition: 325-374 mg/dl = 8 units Condition: 375-409 mg/dl = 10 units Condition: 410-449 mg/dl = 11 units Condition: Greater than 449 call physician Protocol Text: - Use for Total Daily Dose of Insulin 56-80 units - Patient who are insulin resistant or septic HIGH MEDIUM DOSING ALGORITHM Patient Comments: INJECT 3 TO 10 UNITS SUBCUTANEOUSLY BEFORE MEALS DIRECTED budesonide-formoterol 160-4.5 mcg/actuation HFA aerosol inhaler 2 puff inhalation BID omeprazole magnesium [Prilosec OTC] 20 mg tablet,delayed release (DR/EC) 20 mg PO DAILY ramipril 10 MG capsule 10 mg PO BID Patient Comments: TAKE 1 CAPSULE BY MOUTH TWICE DAILY zolpidem 5 mg Tablet 2.5 mg PO QHS PRN (Reason: Insomnia) acetaminophen [Tylenol] 325 mg Tablet 650 mg PO Q6H PRN PRN (Reason: Pain 1-10 Or Fever >100.7) Qty: 0 0RF metoprolol tartrate 50 mg tablet 25 mg PO Q12H Patient Comments: takes half tablet in morning and night amlodipine 10 mg tablet 5 mg PO DAILY Patient Comments: takes half tablet/day insulin glargine [Lantus Solostar U-100 Insulin] 100 unit/mL (3 mL) insulin pen 27 unit subcut QHS Primary Care Provider: Luzma Palencia Referrals: Luzma Palencia MD [Primary Care Provider] - Activity Restrictions/Additional Instructions: Please continue to use your Lantus and lispro as directed by your doctor. You are checking your sugars too frequently and not allowing your metabolism and the medication time to work. You should wait 2 to 4 hours between using your m edication to recheck your sugar. Follow up with your family doctor for repeat evaluation and return to the ER if you have any further concerns Print Language: Arabic Disposition Disposition: Home, Self Care Discharge Date/Time: 01/16/24 00:41
[2024-01-16 00:25] VITALS: BP 143/78; PULSE 76; RESP 18; TEMP 36.6; O2SAT 94
== END 2024-01-16 00:41 | disposition home or self-care (01) ==
LOC: ED 01-16 00:38
PROVIDERS: Emergency Provider Emergency Medicine; PCP Internal Medicine; Visit Provider Emergency Medicine
DX: E11.65 Type 2 diabetes mellitus with hyperglycemia (principal); Z79.4 Long term (current) use of insulin; I10 Essential (primary) hypertension; E78.5 Hyperlipidemia, unspecified; J45.909 Unspecified asthma, uncomplicated; E66.9 Obesity, unspecified; Z86.718 Personal history of other venous thrombosis and embolism; Z87.891 Personal history of nicotine dependence
CPT/HCPCS: 82962; 99282

== ENCOUNTER 2024-02-06 17:14 | Emergency (ER) | payer MEDICARE, SELFPAY ==
[2024-02-06 17:19] VITALS: BP 172/100; PULSE 88; RESP 17; TEMP 36.3; O2SAT 97
[2024-02-06 17:20] VITALS: BMI 47.7
--- NOTE | 2024-02-06 19:02 | EKG12_ITS ---
Test Reason : DYSRHYTHMIA Blood Pressure : / mmHG Vent. Rate : 073 BPM Atrial Rate : 073 BPM P-R Int : 120 ms QRS Dur : 080 ms QT Int : 424 ms P-R-T Axes : 070 033 051 degrees QTc Int : 467 ms Normal sinus rhythm Normal ECG Confirmed by NAYANA JOSE, KARRI ([id number]), editor continuity and script RHONDA BRADFORD ([id number]) on 02/07/2024 8:38:20 AM Referred By: Confirmed By:KARRI KRAUS MD
[2024-02-06 19:34] VITALS: BP 140/60; PULSE 72; RESP 16; O2SAT 97
[2024-02-06] MEDS: 0.9% Normal Saline (500mL Bag) 500 ML 1000 ML IV (19:37)
[2024-02-06 19:42] LABS: Absolute Neutrophil Count 4.8 X10^3/uL (2.0-7.7); Basophil# 0.03 X10^3/uL; Basophil% 0.5 % (0-1); Eosinophil# 0.26 X10^3/uL; Hematocrit 38.8 % (37-47); Hemoglobin 12.7 g/dL (12.0-15.0); Lymphocyte % 13.7 % (19-41); Mean Corp Hgb Conc 32.7 g/dL (32-36); Mean Corpuscular Hgb 29.2 pg (27.0-32.0); Mean Corpuscular Volume 89.2 fL (81-99); Mean Platelet Vol. 12.4 fl (6.2-12.0); Monocyte# 0.54 X10^3/uL; Monocyte% 8.2 % (0-10); NRBC Flagged by Analyzer 0 % (0-5); Neutrophil # 4.81 X10^3/uL (2.7-7.7); Neutrophil % 73.4 % (47-70); Platelet Count 189 K/mm3 (150-450); RBC Distribution Width CV 12.1 % (11.6-14.6); RBC Distribution Width SD 39.5 fl (35.1-43.9); Red Blood Count 4.35 M/mm3 (4.2-5.4); White Blood Count 6.6 K/mm3 (4.4-11.0)
[2024-02-06 20:06] LABS: Anion Gap 7 (5-15); BUN 21 mg/dL (7-18); BUN/Creat Ratio 26.5 RATIO (10-20); Calcium,Total 9.1 mg/dL (8.5-10.1); Chloride 103 mmol/L (98-107); Creatinine, Serum 0.79 mg/dL (0.55-1.02); EST Glomerular Filtration Rate 75 mL/min (>60); Est Glom Filt Rate - Afr Amer 90 mL/min (>60); Estimated Creatinine Clearance 89.96 ml/min; Glucose 219 mg/dL (74-106); Potassium 3.9 mmol/L (3.5-5.1); Sodium Level 137 mmol/L (136-145)
--- NOTE | 2024-02-06 20:52 | EX.ED.DYSGE1 ---
HPI History of Present Illness Chief Complaint: Hypoglycemia Informant: patient Narrative Narrative: Patient presents secondary to concerns for hypoglycemia. She states this afternoon she was checking her blood sugars. It went from the 180s up into the 230s. This made her nervous and she gave herself 2-1/2 units of insulin. Following this she states she started feeling shaky and having palpitations which is how she usually presents with hypoglycemia. Blood sugar in triage was noted to be 181. At the time of my exam patient states that her palpitations are improving but not completely resolved. [facility] Medical History Hyperglycemia due to type 2 diabetes mellitus THAIS (obstructive sleep apnea) Palpitations Sinus bradycardia Abnormal EKG Essential hypertension Premature atrial contractions Charcot's joint of left foot Asthma GERD (gastroesophageal reflux disease) History of DVT (deep vein thrombosis) Bimalleolar ankle fracture Paroxysmal SVT (supraventricular tachycardia) Premature ventricular contraction Hyperlipidemia Diabetes mellitus, type II Home Medications ?Medication ?Instructions ?Recorded ?Last Taken ?Type aspirin 81 mg tablet,delayed 81 mg PO DAILY heart health 11/24/17 02/06/24 History release ramipril 10 mg capsule 10 mg PO BID HEART 01/19/19 02/06/24 History cholecalciferol (vitamin D3) 1,250 1,250 mcg PO QWEEK SUPPLEMENT 12/03/19 02/05/24 History mcg (50,000 unit) capsule furosemide 20 mg tablet 20 mg PO DAILY PRN water pill 01/22/21 Unknown History budesonide-formoterol HFA 160 2 puff inhalation BID ASTHMA 12/21/21 02/06/24 History mcg-4.5 mcg/actuation aerosol inhaler zolpidem 5 mg tablet 2.5 mg PO QHS PRN Insomnia 02/11/22 Unknown History insulin lispro 100 unit/mL 6 unit subcut TIDCM dm 06/22/22 02/06/24 History subcutaneous solution omeprazole magnesium 20 mg 20 mg PO DAILY GERD 06/22/22 02/06/24 History tablet,delayed release (Prilosec OTC) acetaminophen 325 mg tablet 650 mg (2 x 325 mg) PO Q6H PRN PRN 08/02/22 Unknown Rx (Tylenol) Pain 1-10 Or Fever >100.7 #0 tabs amlodipine 10 mg tablet 5 mg PO DAILY 10/01/23 02/06/24 History metoprolol tartrate 50 mg tablet 25 mg PO Q12H heart rate, BP 10/01/23 02/06/24 History insulin glargine 100 unit/mL (3 27 unit subcut QHS 11/07/23 02/05/24 History mL) subcutaneous pen (Lantus Solostar U-100 Insulin) blood sugar diagnostic (OneTouch 02/06/24 Unknown History Ultra Test strips) Allergy/AdvReac Type Severity Reaction Status Date / Time hydromorphone Allergy Severe Anaphylaxis Verified 02/06/24 17:18 tramadol Allergy Severe Anaphylaxis Verified 02/06/24 17:18 amiodarone Allergy Intermediate Swelling Verified 02/06/24 17:18 Rowley And Derivatives Allergy Intermediate Hives Verified 02/06/24 17:18 morphine Allergy Intermediate confusion Verified 02/06/24 17:18 moxifloxacin Allergy Intermediate Shortness Verified 02/06/24 17:18 of breath nabumetone Allergy Intermediate damaged Verified 02/06/24 17:18 kidney penicillin G Allergy Intermediate TURNS BLUE Verified 02/06/24 17:18 propoxyphene Allergy Intermediate PT UNSURE Verified 02/06/24 17:18 OF REACTION amlodipine Allergy Mild Abd Verified 02/06/24 17:18 cramps/diarrhea desloratadine Allergy Mild headache Verified 02/06/24 17:18 glutamine (From Airborne Allergy Mild Itching Verified 02/06/24 17:18 (ascorbate sodium)) herbal complex no.124 (From Allergy Mild Itching Verified 02/06/24 17:18 Airborne (ascorbate sodium)) hydrocodone (From [place]) Allergy Mild dystonia Verified 02/06/24 17:18 lysine HCl (From Airborne Allergy Mild Itching Verified 02/06/24 17:18 (ascorbate sodium)) multivitamin with minerals Allergy Mild Itching Verified 02/06/24 17:18 (From Airborne (ascorbate sodium)) pravastatin Allergy Unknown unknown Verified 02/06/24 17:18 rosuvastatin (From Crestor) Allergy Unknown myalgias Verified 02/06/24 17:18 simvastatin Allergy Unknown unknown Verified 02/06/24 17:18 escitalopram Allergy Other Verified 02/06/24 17:18 hydrochlorothiazide Allergy Other Verified 02/06/24 17:18 Qgyawdk-UKY-KeR Reductase AdvReac Severe myalgias Verified 02/06/24 17:18 Inhibitor (Cytssqc-Njr-Coz Reductase Inhibitor) amoxicillin (From Augmentin) AdvReac Other Verified 02/06/24 17:18 clavulanic acid (From AdvReac Other Verified 02/06/24 17:18 Augmentin) codeine AdvReac Nausea Verified 02/06/24 17:18 naproxen (From Naprosyn) AdvReac Nausea Verified 02/06/24 17:18 oseltamivir (From Tamiflu) AdvReac HALLUCINATI Verified 02/06/24 17:18 ONS Family History Mother Aortic stenosis Presence of permanent cardiac pacemaker Surgical History History of herniorrhaphy Status post ORIF of fracture of ankle History of tonsillectomy History of cholecystectomy Social History household members: spouse Smoking Status: Former smoker alcohol intake: never substance use type: does not use caffeine: Yes Type: coffee Number of servings: 3 ROS ROS ED Constitutional Constitutional ED: Denies chills or fever(s) Eyes Eyes: Denies discharge from eye(s) ENT ENT ED: Denies discharge from eye(s), rhinorrhea or sore throat Cardiovascular Cardiovascular: Reports palpitations; Denies chest pain Respiratory/Chest Respiratory/Chest: Denies cough or dyspnea Gastrointestinal Gastrointestinal: Denies abdominal pain, nausea or vomiting Genitourinary Genitourinary ED: Denies dysuria Musculoskeletal Musculoskeletal: Denies back pain or extremity pain Integumentary Denies Abrasions or rash Neurologic Neurologic: Reports weakness; Denies headache(s) Allergic/Immunologic Allergic/Immunologic ED: Denies lip swelling or urticaria EXAM Physical Exam Const Vital Signs: 02/06/24 17:19 02/06/24 18:36 02/06/24 19:34 Temperature 97.3 F L Temperature Source Temporal Pulse Rate 88 72 Respiratory Rate 17 16 Respiratory Effort Normal Non-Labored Respiratory Pattern Normal Blood Pressure 172/100 H 140/60 H Blood Pressure Mean 124 86 Pulse Ox 97 97 Oxygen Delivery Method Room Air Room Air 02/06/24 21:00 02/06/24 21:32 Temperature 98.2 F 98.2 F Temperature Source Oral Pulse Rate 75 75 Respiratory Rate 16 16 Respiratory Effort Respiratory Pattern Blood Pressure 153/61 H 153/61 H Blood Pressure Mean 91 91 Pulse Ox 97 97 Oxygen Delivery Method Room Air Positive well nourished and well developed General Appearance ED: well developed HEENT Reports moist mucous membranes Eyes EOMs intact bilaterally Chest Wall inspection of chest normal and palpation of chest normal Resp normal respiratory effort and clear to auscultation bilaterally Cardio regular rate and regular rhythm GI non-tender Palpation: soft Extremity Extremity Narrative: Wraps and braces noted to the bilateral lower extremities. Neuro oriented x3 Neuro Narrative: No focal neurologic deficit. Psych mental status grossly normal MDM MDM MDM Narrative Medical decision making narrative: Patient placed on playground monitor. IV line initiated. Labwork obtained to evaluate for leukocytosis, anemia, and electrolyte derangement. EKG obtained to evaluate for cardiac arrhythmia/ischemia. Patient given a small IV fluid bolus. History & Record Review Discussion w/independent historian: Patient and Significant other Additional record(s) reviewed:: Prior ED visit and Prior labs Lab Data Attestation: I reviewed the patient's lab results. Labs: Laboratory Results - last 24 hr 02/06/24 19:35 WBC 6.6 RBC 4.35 Hgb 12.7 Hct 38.8 MCV 89.2 MCH 29.2 MCHC 32.7 RDW Std Deviation 39.5 RDW Coeff of Madalyn 12.1 Plt Count 189 MPV 12.4 H Immature Gran % (Auto) 0.200 Neut % (Auto) 73.4 H Lymph % (Auto) 13.7 L [place] % (Auto) 8.2 Eos % (Auto) 4.0 Baso % (Auto) 0.5 Absolute Neuts (auto) 4.8 Absolute Lymphs (auto) 0.90 Nucleated RBC % 0 Sodium 137 Potassium 3.9 Chloride 103 Carbon Dioxide 27.0 Anion Gap 7 BUN 21 H Creatinine 0.79 Estim Creat Clear Calc 89.96 Est GFR (MDRD) Af Amer 90 Est GFR (MDRD) Non-Af 75 BUN/Creatinine Ratio 26.5 H Glucose 219 H Calcium 9.1 EKG Initial EKG: Attestation: I personally reviewed and interpreted this EKG as follows: Interpretation: Sinus Rhythm (Sinus at 73 with no acute ischemia.) Treatment and Re-Evaluation :: CBC was a white count of 6.6 with a hemoglobin of 12.7. Chemistry studies reveal a BUN of 21 and creatinine 0.79. Potassium is normal at 3.9. Glucose is slightly elevated at 219. EKG is sinus at 73 with no acute ischemia. On repeat evaluation patient states that her palpitations have completely subsided. Patient states she plans to go home and ate a salad for dinner and then take her overnight insulin. I do not feel she needs further insulin here at this time. Patient comfortable with the plan. Discharge Plan Triage Chief Complaint: Hypoglycemia ED Provider: Tierney Francis Dx/Rx/DC Orders Clinical Impression: Palpitations, Hyperglycemia Instructions: ED Diabetic Hyperglycemia, ED Palpitations Prescriptions: No Action aspirin 81 mg tablet,delayed release (DR/EC) 81 mg PO DAILY Patient Comments: only takes sometimes cholecalciferol (vitamin D3) 1,250 mcg (50,000 unit) capsule 1,250 mcg PO QWEEK furosemide 20 mg tablet 20 mg PO DAILY PRN (Reason: water pill) insulin lispro 100 unit/mL solution 6 unit subcut TIDCM Protocol: 4. Sliding Scale Insulin High-Med Dosing Condition: 150-199 mg/dl = 2 units Condition: 200-259 mg/dl = 4 units Condition: 260-324 mg/dl = 6 units Condition: 325-374 mg/dl = 8 units Condition: 375-409 mg/dl = 10 units Condition: 410-449 mg/dl = 11 units Condition: Greater than 449 call physician Protocol Text: - Use for Total Daily Dose of Insulin 56-80 units - Patient who are insulin resistant or septic HIGH MEDIUM DOSING ALGORITHM Patient Comments: INJECT 3 TO 10 UNITS SUBCUTANEOUSLY BEFORE MEALS DIRECTED budesonide-formoterol 160-4.5 mcg/actuation HFA aerosol inhaler 2 puff inhalation BID omeprazole magnesium [Prilosec OTC] 20 mg tablet,delayed release (DR/EC) 20 mg PO DAILY ramipril 10 MG capsule 10 mg PO BID Patient Comments: TAKE 1 CAPSULE BY MOUTH TWICE DAILY zolpidem 5 mg Tablet 2.5 mg PO QHS PRN (Reason: Insomnia) acetaminophen [Tylenol] 325 mg Tablet 650 mg PO Q6H PRN PRN (Reason: Pain 1-10 Or Fever >100.7) Qty: 0 0RF metoprolol tartrate 50 mg tablet 25 mg PO Q12H Patient Comments: takes half tablet in morning and night amlodipine 10 mg tablet 5 mg PO DAILY Patient Comments: takes half tablet/day (DME) OneTouch Ultra Test Strip MISCELLANEOUS Patient Comments: [NO ORIGINAL SIG] insulin glargine [Lantus Solostar U-100 Insulin] 100 unit/mL (3 mL) insulin pen 27 unit subcut QHS Primary Care Provider: Luzma Palencia Referrals: uLzma Palencia MD [Primary Care Provider] - As Needed Print Language: Gabonese Disposition Disposition: Home, Self Care Discharge Date/Time: 02/06/24 21:33
[2024-02-06 21:00] VITALS: BP 153/61; PULSE 75; RESP 16; TEMP 36.8; O2SAT 97
[2024-02-06 21:32] VITALS: BP 153/61; PULSE 75; RESP 16; TEMP 36.8; O2SAT 97
[2024-02-07 07:04] LABS: Bedside Glucose 181 mg/dL (74-106)
== END 2024-02-06 21:33 | disposition home or self-care (01) ==
PROVIDERS: Emergency Provider Emergency Medicine; PCP Internal Medicine; Visit Provider Emergency Medicine
DX: R00.2 Palpitations (principal); E11.65 Type 2 diabetes mellitus with hyperglycemia; E78.5 Hyperlipidemia, unspecified; I10 Essential (primary) hypertension; G47.33 Obstructive sleep apnea (adult) (pediatric); J45.909 Unspecified asthma, uncomplicated; Z79.82 Long term (current) use of aspirin; Z79.899 Other long term (current) drug therapy; Z86.718 Personal history of other venous thrombosis and embolism; Z87.891 Personal history of nicotine dependence
CPT/HCPCS: 80048; 82962; 85025; 93005; 99283; A4216

== ENCOUNTER 2024-03-02 19:13 | Emergency (ER) | payer MEDICARE, SELFPAY ==
[2024-03-02 19:17] VITALS: BP 156/55; PULSE 60; RESP 18; TEMP 35.9; O2SAT 96
--- NOTE | 2024-03-02 19:53 | ED.VIS.CHEST ---
HPI History of Present Illness Chief Complaint: Palpitations [facility] Medical History Hyperglycemia due to type 2 diabetes mellitus THAIS (obstructive sleep apnea) Palpitations Sinus bradycardia Abnormal EKG Essential hypertension Premature atrial contractions Charcot's joint of left foot Asthma GERD (gastroesophageal reflux disease) History of DVT (deep vein thrombosis) Bimalleolar ankle fracture Paroxysmal SVT (supraventricular tachycardia) Premature ventricular contraction Hyperlipidemia Diabetes mellitus, type II Home Medications ?Medication ?Instructions ?Recorded ?Last Taken ?Type aspirin 81 mg tablet,delayed 81 mg PO DAILY heart health 11/24/17 02/06/24 History release ramipril 10 mg capsule 10 mg PO BID HEART 01/19/19 02/06/24 History cholecalciferol (vitamin D3) 1,250 1,250 mcg PO QWEEK SUPPLEMENT 12/03/19 02/05/24 History mcg (50,000 unit) capsule furosemide 20 mg tablet 20 mg PO DAILY PRN water pill 01/22/21 Unknown History budesonide-formoterol HFA 160 2 puff inhalation BID ASTHMA 12/21/21 02/06/24 History mcg-4.5 mcg/actuation aerosol inhaler zolpidem 5 mg tablet 2.5 mg PO QHS PRN Insomnia 02/11/22 Unknown History insulin lispro 100 unit/mL 6 unit subcut TIDCM dm 06/22/22 02/06/24 History subcutaneous solution omeprazole magnesium 20 mg 20 mg PO DAILY GERD 06/22/22 02/06/24 History tablet,delayed release (Prilosec OTC) acetaminophen 325 mg tablet 650 mg (2 x 325 mg) PO Q6H PRN PRN 08/02/22 Unknown Rx (Tylenol) Pain 1-10 Or Fever >100.7 #0 tabs amlodipine 10 mg tablet 5 mg PO DAILY 10/01/23 02/06/24 History metoprolol tartrate 50 mg tablet 25 mg PO Q12H heart rate, BP 10/01/23 02/06/24 History insulin glargine 100 unit/mL (3 27 unit subcut QHS 11/07/23 02/05/24 History mL) subcutaneous pen (Lantus Solostar U-100 Insulin) blood sugar diagnostic (OneTouch 02/06/24 Unknown History Ultra Test strips) Allergy/AdvReac Type Severity Reaction Status Date / Time hydromorphone Allergy Severe Anaphylaxis Verified 03/02/24 19:16 tramadol Allergy Severe Anaphylaxis Verified 03/02/24 19:16 amiodarone Allergy Intermediate Swelling Verified 03/02/24 19:16 Graham And Derivatives Allergy Intermediate Hives Verified 03/02/24 19:16 morphine Allergy Intermediate confusion Verified 03/02/24 19:16 moxifloxacin Allergy Intermediate Shortness Verified 03/02/24 19:16 of breath nabumetone Allergy Intermediate damaged Verified 03/02/24 19:16 kidney penicillin G Allergy Intermediate TURNS BLUE Verified 03/02/24 19:16 propoxyphene Allergy Intermediate PT UNSURE Verified 03/02/24 19:16 OF REACTION amlodipine Allergy Mild Abd Verified 03/02/24 19:16 cramps/diarrhea desloratadine Allergy Mild headache Verified 03/02/24 19:16 glutamine (From Airborne Allergy Mild Itching Verified 03/02/24 19:16 (ascorbate sodium)) herbal complex no.124 (From Allergy Mild Itching Verified 03/02/24 19:16 Airborne (ascorbate sodium)) hydrocodone (From [place]) Allergy Mild dystonia Verified 03/02/24 19:16 lysine HCl (From Airborne Allergy Mild Itching Verified 03/02/24 19:16 (ascorbate sodium)) multivitamin with minerals Allergy Mild Itching Verified 03/02/24 19:16 (From Airborne (ascorbate sodium)) pravastatin Allergy Unknown unknown Verified 03/02/24 19:16 rosuvastatin (From Crestor) Allergy Unknown myalgias Verified 03/02/24 19:16 simvastatin Allergy Unknown unknown Verified 03/02/24 19:16 escitalopram Allergy Other Verified 03/02/24 19:16 hydrochlorothiazide Allergy Other Verified 03/02/24 19:16 Fukbtqc-GOA-ViE Reductase AdvReac Severe myalgias Verified 03/02/24 19:16 Inhibitor (Imimfdv-Iyn-Jwv Reductase Inhibitor) amoxicillin (From Augmentin) AdvReac Other Verified 03/02/24 19:16 clavulanic acid (From AdvReac Other Verified 03/02/24 19:16 Augmentin) codeine AdvReac Nausea Verified 03/02/24 19:16 naproxen (From Naprosyn) AdvReac Nausea Verified 03/02/24 19:16 oseltamivir (From Tamiflu) AdvReac HALLUCINATI Verified 03/02/24 19:16 ONS Family History Mother Aortic stenosis Presence of permanent cardiac pacemaker Surgical History History of herniorrhaphy Status post ORIF of fracture of ankle History of tonsillectomy History of cholecystectomy Social History household members: spouse Smoking Status: Former smoker alcohol intake: never substance use type: does not use caffeine: Yes Type: coffee Number of servings: 3 EXAM Physical Exam Const Vital Signs: 03/02/24 19:17 03/02/24 19:37 03/02/24 21:15 Temperature 96.7 F L Temperature Source Temporal Pulse Rate 60 71 Respiratory Rate 18 12 Respiratory Effort Normal Non-Labored Blood Pressure 156/55 H 151/65 H Blood Pressure Mean 88 93 Pulse Ox 96 95 Oxygen Delivery Method Room Air Room Air MDM MDM MDM Narrative Medical decision making narrative: HISTORY OF PRESENT ILLNESS: 78-year-old female with past medical history significant for palpitations, THAIS, hypertension, DVT, SVT and type 2 diabetes presents with concern for palpitations. She states she is feeling her heart is racing. This began tonight. It is intermittent. It is not currently occurring. The patient denies recent surgery in the last 4 weeks or immobilization in the last 3 days, denies previous diagnosis of DVT or PE, hemoptysis, unilateral leg swelling or malignancy with treatment the last 6 months or palliative. No estrogen use noted. Denies any recent bleeding diathesis. Denies recent volume loss. Denies any recent cough fever chills REVIEW OF SYSTEMS: Pertinent positives: Palpitations Pertinent negatives: Chest pain, shortness breath, syncope PHYSICAL EXAM: Nursing triage notes reviewed, Vital signs reviewed Constitutional: please see mdm HENT: MMM Eyes: Pupils equal round and reactive to light, Extraocular muscles intact Neck: No stridor, no JVD, full neck ROM Lungs: Clear to auscultation, No wheezing or rales. No increased work of breathing, no conversational dyspnea, no accessory muscle use, no nasal flaring. No respiratory distress noted Heart: Regular rate and rhythm, No murmurs, No rubs and No gallops, 2+ distal pulses (radial, femoral, posterior tibial) in all extremities Abdomen: Soft, there is no tenderness, rigidity, rebound or guarding, no obvious peritoneal signs, no palpable pulsatile abdominal masses, no auscultated abdominal bruit : No CVAT Extremities: No edema Neuro: No focal neurological deficits, cranial nerves II through XII intact, 5/5 strength in all extremities. Intact sensation to light touch in all extremities, 2+ reflexes bilateral patella tendons. Normal gait. No ataxia. Skin: No rash or lesions noted MEDICAL DECISION MAKING: Chief Complaint: Palpitations External records reviewed: Reviewed prior 48-hour Holter monitor report from September 2023. The conclusion of the study was normal sinus rhythm with occasional PVCs and frequent PACs Factors affecting care: As per HPI [facility] Narrative: The patient was initially hemodynamically stable, afebrile nontoxic-appearing. Exam without focal cardiopulmonary normalities. I considered the following differential diagnosis: Arrhythmia, anemia, electrolyte disturbance, ACS I obtained a broad lab and imaging workup to further elucidate etiology of patient's complaint. I initially resuscitated patient with 500 cc bolus of normal saline. ALL IMAGES (IF OBTAINED) HAVE BEEN PERSONALLY REVIEWED AND INTERPRETED BY MYSELF. EKG with sinus bradycardia rate of 59, there is significant sinus arrhythmia, on the monitor noted frequent PVCs, there is no evidence of A-fib, high degree heart block, STEMI CBC without leukocytosis, severe anemia, no thrombocytopenia. BMP without evidence of significant electrolyte abnormalities, no anion gap, no acute kidney injury. High-sensitivity troponin is negative, no evidence of myocardial ischemia The synthesis of the patient's history, physical exam, labs images suggest likely PVC versus PAC burden. This is not life-threatening. There is no occasion for admission. Encourage patient father outside machinist for titration of current metoprolol dosing. The patient and/or family, caregivers express understanding. The patient and/or family, caregivers agrees with the plan. Shared decision making: I will have a discussion with the patient and or visitors regarding risk/benefits of further testing or admission. They will be made aware of of the risk/benefits inherent in this decision they will be given the opportunity to voice understanding. Total critical care time today provided was at least 0 minutes. This excludes separately billable procedures. Critical care time (if documented) is secondary to the patient having high probability of clinically significant/life threatening deterioration in the patient's condition which required my urgent intervention. Impression: 1. Palpitations 2. History of SVT 3. Frequent PVCs Dispo: Discharge home This note was generated with [employer] dictation software. It may contain incorrect words, spelling, and punctuation that were not noted in review of the chart prior to signing. Lab Data Labs: Laboratory Results - last 24 hr 03/02/24 03/02/24 20:03 20:07 WBC 5.2 RBC 4.25 Hgb 12.5 Hct 38.2 MCV 89.9 MCH 29.4 MCHC 32.7 RDW Std Deviation 40.2 RDW Coeff of Madalyn 12.3 Plt Count 207 MPV 12.2 H Immature Gran % (Auto) 0.200 Neut % (Auto) 64.5 Lymph % (Auto) 18.0 L [place] % (Auto) 9.8 Eos % (Auto) 6.9 H Baso % (Auto) 0.6 Absolute Neuts (auto) 3.4 Absolute Lymphs (auto) 0.94 Nucleated RBC % 0 Sodium 139 Potassium 3.9 Chloride 104 Carbon Dioxide 30.0 Anion Gap 5 BUN 23 H Creatinine 0.99 Est GFR (MDRD) Af Amer 70 Est GFR (MDRD) Non-Af 58 L BUN/Creatinine Ratio 23.3 H Glucose 187 H Calcium 9.0 Troponin I High Sens 10 POC Glucose 186 H Radiography Diagnostic Testing: Clinical Impression(s) from Imaging Studies Chest X-Ray 03/02/24 20:24 IMPRESSION: Left basilar atelectasis. Electronically Signed: Merrick Capone DO at 20:53 EDT Reading Location ID and State: [facility] / [place] Tel [phone], Service support , Discharge Plan Triage Chief Complaint: Palpitations ED Provider: Forest Smith Dx/Rx/DC Orders Prescriptions: No Action aspirin 81 mg tablet,delayed release (DR/EC) 81 mg PO DAILY Patient Comments: only takes sometimes cholecalciferol (vitamin D3) 1,250 mcg (50,000 unit) capsule 1,250 mcg PO QWEEK furosemide 20 mg tablet 20 mg PO DAILY PRN (Reason: water pill) insulin lispro 100 unit/mL solution 6 unit subcut TIDCM Protocol: 4. Sliding Scale Insulin High-Med Dosing Condition: 150-199 mg/dl = 2 units Condition: 200-259 mg/dl = 4 units Condition: 260-324 mg/dl = 6 units Condition: 325-374 mg/dl = 8 units Condition: 375-409 mg/dl = 10 units Condition: 410-449 mg/dl = 11 units Condition: Greater than 449 call physician Protocol Text: - Use for Total Daily Dose of Insulin 56-80 units - Patient who are insulin resistant or septic HIGH MEDIUM DOSING ALGORITHM Patient Comments: INJECT 3 TO 10 UNITS SUBCUTANEOUSLY BEFORE MEALS DIRECTED budesonide-formoterol 160-4.5 mcg/actuation HFA aerosol inhaler 2 puff inhalation BID omeprazole magnesium [Prilosec OTC] 20 mg tablet,delayed release (DR/EC) 20 mg PO DAILY ramipril 10 MG capsule 10 mg PO BID Patient Comments: TAKE 1 CAPSULE BY MOUTH TWICE DAILY zolpidem 5 mg Tablet 2.5 mg PO QHS PRN (Reason: Insomnia) acetaminophen [Tylenol] 325 mg Tablet 650 mg PO Q6H PRN PRN (Reason: Pain 1-10 Or Fever >100.7) Qty: 0 0RF metoprolol tartrate 50 mg tablet 25 mg PO Q12H Patient Comments: takes half tablet in morning and night amlodipine 10 mg tablet 5 mg PO DAILY Patient Comments: takes half tablet/day (DME) OneTouch Ultra Test Strip MISCELLANEOUS Patient Comments: [NO ORIGINAL SIG] insulin glargine [Lantus Solostar U-100 Insulin] 100 unit/mL (3 mL) insulin pen 27 unit subcut QHS Primary Care Provider: Luzma Palencia Referrals: Luzma Palencia MD [Primary Care Provider] - Print Language: Yoruba
--- NOTE | 2024-03-02 19:57 | EKG12_ITS ---
Test Reason : DYSRHYTHMIA Blood Pressure : / mmHG Vent. Rate : 059 BPM Atrial Rate : 059 BPM P-R Int : 114 ms QRS Dur : 076 ms QT Int : 450 ms P-R-T Axes : 051 040 065 degrees QTc Int : 445 ms Sinus bradycardia with Premature atrial complexes Otherwise normal ECG Confirmed by Miguel Angel Bosch ([id number]), publications editor RHONDA BRADFORD ([id number]) on 03/05/2024 9:54:27 AM Referred By: Confirmed By:Miguel Angel Bosch
[2024-03-02] MEDS: 0.9% Normal Saline (500mL Bag) 500 ML IV (20:08)
[2024-03-02 20:18] LABS: Absolute Lymphocyte Count 0.94 X10^3/uL (0.83-4.51); Absolute Neutrophil Count 3.4 X10^3/uL (2.0-7.7); Basophil# 0.03 X10^3/uL; Basophil% 0.6 % (0-1); Eosinophil# 0.36 X10^3/uL; Eosinophils% 6.9 % (0-5); Hematocrit 38.2 % (37-47); Hemoglobin 12.5 g/dL (12.0-15.0); Lymphocyte # 0.94 X10^3/ul (0.83-4.51); Mean Corp Hgb Conc 32.7 g/dL (32-36); Mean Corpuscular Hgb 29.4 pg (27.0-32.0); Mean Corpuscular Volume 89.9 fL (81-99); Mean Platelet Vol. 12.2 fl (6.2-12.0); Monocyte# 0.51 X10^3/uL; Monocyte% 9.8 % (0-10); NRBC Flagged by Analyzer 0 % (0-5); Neutrophil # 3.38 X10^3/uL (2.7-7.7); Neutrophil % 64.5 % (47-70); Platelet Count 207 K/mm3 (150-450); RBC Distribution Width CV 12.3 % (11.6-14.6); RBC Distribution Width SD 40.2 fl (35.1-43.9); Red Blood Count 4.25 M/mm3 (4.2-5.4); White Blood Count 5.2 K/mm3 (4.4-11.0)
--- NOTE | 2024-03-02 20:24 | RAD_ITS ---
INDICATION: Palpitations EXAMINATION/TECHNIQUE: X-RAY - XR Chest 1 View COMPARISON: FINDINGS: LINES/DEVICES: None. LUNGS: No consolidation, edema or effusion. Left basilar atelectasis. No pneumothorax. MEDIASTINUM AND CARDIOVASCULAR STRUCTURES: Cardiac silhouette is borderline in size. Central airways and mediastinal contour are unremarkable. BONES AND SOFT TISSUES: Unremarkable. RAD/Chest 1 View (Portable) IMPRESSION: Left basilar atelectasis. Electronically Signed: Merrick Capone DO at 20:53 EDT ,
[2024-03-02 20:26] LABS: Bedside Glucose 186 mg/dL (74-106)
[2024-03-02 20:44] LABS: Anion Gap 5 (5-15); BUN 23 mg/dL (7-18); BUN/Creat Ratio 23.3 RATIO (10-20); Chloride 104 mmol/L (98-107); Creatinine, Serum 0.99 mg/dL (0.55-1.02); EST Glomerular Filtration Rate 58 mL/min (>60); Est Glom Filt Rate - Afr Amer 70 mL/min (>60); Glucose 187 mg/dL (74-106); Potassium 3.9 mmol/L (3.5-5.1); Sodium Level 139 mmol/L (136-145); Troponin-I HS 10 pg/mL (3.0-54.0)
[2024-03-02 21:15] VITALS: BP 151/65; PULSE 71; RESP 12; O2SAT 95
[2024-03-02 22:45] LABS: Bedside Glucose 219 mg/dL (74-106)
[2024-03-02 22:58] VITALS: BP 151/80; PULSE 61; RESP 17; TEMP 36.6; O2SAT 96
== END 2024-03-02 22:58 | disposition home or self-care (01) ==
PROVIDERS: Emergency Provider Emergency Medicine; PCP Internal Medicine; Visit Provider Emergency Medicine
DX: R00.2 Palpitations (principal); E11.9 Type 2 diabetes mellitus without complications; Z79.4 Long term (current) use of insulin; E78.5 Hyperlipidemia, unspecified; Z87.891 Personal history of nicotine dependence; I10 Essential (primary) hypertension; J45.909 Unspecified asthma, uncomplicated; Z79.51 Long term (current) use of inhaled steroids; K21.9 Gastro-esophageal reflux disease without esophagitis; Z79.899 Other long term (current) drug therapy; Z90.49 Acquired absence of other specified parts of digestive tract; Z86.79 Personal history of other diseases of the circulatory system; I49.1 Atrial premature depolarization; R00.1 Bradycardia, unspecified
CPT/HCPCS: 71045; 80048; 82962; 84484; 85025; 93005; 96360; 99284; J7040

== ENCOUNTER → 2024-03-23 | Outpatient (CLI) | payer MEDICARE, SELFPAY ==
--- NOTE | 2024-03-23 09:57 | BI_ITS ---
MAMMOGRAPHY - BILATERAL SCREENING REASON FOR EXAM: Female, 78 years old. Routine annual screening examination. PERTINENT HISTORY: Grandmother with breast cancer. Aunt with breast cancer. TECHNIQUE: Digital bilateral breast minal (3D mammographic acquisition) in the CC and MLO projections. 2-D mediolateral oblique (MLO) and craniocaudad (CC) views of both breasts were obtained. CAD: Full Field Digital Mammography with Computer Added Detection was performed. COMPARISON: Comparison is made with prior study March 22, 2023 and March 10, 2022. FINDINGS: Breast Composition: There are scattered areas of fibroglandular density. There are no dominant masses or suspicious calcifications. No other significant abnormalities are identified. There has been no significant change since the prior study. BI/SCRN MAMM (CAD)W/MINAL BILAT IMPRESSION: Stable bilateral screening mammogram. Yearly follow-up mammogram recommended. (A) ASSESSMENT CATEGORY: BIRADS Category 1: Negative. A letter regarding these results will be sent to the patient by the facility within 30 days. Approximately 10% of breast cancers are not detected by mammography. A normal mammogram should not delay biopsy of a clinically suspicious abnormality. [id number] Electronically Signed: Jules Terrell MD at 11:49 EDT ,
== END | disposition home or self-care (01) ==
PROVIDERS: PCP Internal Medicine; Referring Provider Clinical Nurse Specialist; Visit Provider Clinical Nurse Specialist
DX: Z12.31 Encounter for screening mammogram for malignant neoplasm of breast (principal)
CPT/HCPCS: 77063; 77067

== ENCOUNTER 2024-05-04 14:44 | Emergency (ER) | payer MEDICARE, SELFPAY ==
[2024-05-04 14:45] VITALS: BP 168/58; PULSE 67; RESP 18; TEMP 35.5; O2SAT 98
--- NOTE | 2024-05-04 14:49 | EKG12_ITS ---
Test Reason : palpitations Blood Pressure : / mmHG Vent. Rate : 065 BPM Atrial Rate : 065 BPM P-R Int : 134 ms QRS Dur : 084 ms QT Int : 424 ms P-R-T Axes : 062 029 055 degrees QTc Int : 440 ms Sinus rhythm with Premature atrial complexes Otherwise normal ECG Confirmed by Miguel Angel Bosch ([id number]), editorial clerk MAMIE HENDERSON ([id number]) on 05/07/2024 11:51:02 AM Referred By: Confirmed By:Miguel Angel Bosch
[2024-05-04 15:10] LABS: Absolute Lymphocyte Count 1.25 X10^3/uL (0.83-4.51); Absolute Neutrophil Count 4.8 X10^3/uL (2.0-7.7); Basophil# 0.04 X10^3/uL; Basophil% 0.6 % (0-1); Eosinophil# 0.34 X10^3/uL; Eosinophils% 4.9 % (0-5); Hematocrit 38.7 % (37-47); Hemoglobin 12.9 g/dL (12.0-15.0); Lymphocyte # 1.25 X10^3/ul (0.83-4.51); Lymphocyte % 18.1 % (19-41); Mean Corp Hgb Conc 33.3 g/dL (32-36); Mean Corpuscular Hgb 29.4 pg (27.0-32.0); Mean Corpuscular Volume 88.2 fL (81-99); Mean Platelet Vol. 12.1 fl (6.2-12.0); Monocyte% 7.3 % (0-10); NRBC Flagged by Analyzer 0 % (0-5); Neutrophil # 4.75 X10^3/uL (2.7-7.7); Platelet Count 198 K/mm3 (150-450); RBC Distribution Width CV 12.7 % (11.6-14.6); Red Blood Count 4.39 M/mm3 (4.2-5.4); White Blood Count 6.9 K/mm3 (4.4-11.0)
[2024-05-04 15:27] LABS: Anion Gap 6 (5-15); BUN 23 mg/dL (7-18); BUN/Creat Ratio 24.4 RATIO (10-20); Calcium,Total 9.1 mg/dL (8.5-10.1); Chloride 107 mmol/L (98-107); Creatinine, Serum 0.94 mg/dL (0.55-1.02); EST Glomerular Filtration Rate 61 mL/min (>60); Est Glom Filt Rate - Afr Amer 74 mL/min (>60); Glucose 160 mg/dL (74-106); Sodium Level 140 mmol/L (136-145); Troponin-I HS (w/2H Reflex) 10 pg/mL (3.0-54.0)
--- NOTE | 2024-05-04 15:30 | RAD_ITS ---
STUDY: X-RAY CHEST REASON FOR EXAM: Female, 78 years old. chest pain TECHNIQUE: Single AP portable view of the chest. COMPARISON: 03/02/2024.. FINDINGS: The lungs are clear and expanded. There is no demonstrated pleural abnormality. Normal size heart. Normal mediastinum and christie. Normal visualized pulmonary arteries. Normal visualized aortic arch and descending thoracic aorta. Normal visualized thoracic spine. Normal visualized ribs, clavicles, and shoulders. There is no demonstrated abnormality of the visualized soft tissue structures of the upper abdomen. RAD/Chest 1 View (Portable) IMPRESSION: Normal x-ray examination of the chest. Electronically Signed: Leandro Berumen MD at 15:45 EDT ,
[2024-05-04 15:45] VITALS: BP 156/50; PULSE 58; RESP 14; O2SAT 98
[2024-05-04 16:00] VITALS: BP 162/70; PULSE 60; RESP 15; O2SAT 99
[2024-05-04 16:10] LABS: BNP,B-Type NATRIURETIC PEPTIDE 123.7 pg/mL (0-100)
--- NOTE | 2024-05-04 16:12 | EDS_ITS ---
HPI History of Present Illness Chief Complaint: Palpitations Detail of Chief Complaint: Palpitations occurred this morning upon awakening when blood sugar was 40 Informant: patient and spouse/S.O. Onset/Context/Timing Onset: Today Context: Sudden Onset Timing: Intermittent Quality: Palpitations and fatigue Location: Chest/cardiovascular Current Severity: Gone Maximum Severity: Moderate Worsened by: Based on history presumed due to hypoglycemia, blood sugar was 40 Relieved by: Eating yogurt Associated Symptoms Associated Symptoms: Patient felt fatigued this afternoon and reason she presented. Narrative Narrative: Patient is a 78-year-old woman. She has history of type 1 diabetes on sliding scale of insulin, congestive heart failure, lymphedema, Charcot foot due to diabetes, diagnosed 20 years ago, GERD, insomnia who presents because of palpitations occurred this morning. She became concerned because of feeling fatigued today. She apparently ate later than normal. She did not adjust her dose of insulin and did not adjust timing of her insulin. Is the first time she has had hypoglycemia in some time. The blood sugar improved with her eating yogurt this morning. She denied chest pain, shortness of breath, diaphoresis nausea or vomiting. Patient felt her heartbeat. She was unaware of how fast it was going. She had no orthostatic symptoms. She denies black or maroon-colored stool. She denies infectious symptoms. Prior similar symptoms: No Recent Illness/Hospitalization: No [facility] Medical History Hyperglycemia due to type 2 diabetes mellitus THAIS (obstructive sleep apnea) Palpitations Sinus bradycardia Abnormal EKG Essential hypertension Premature atrial contractions Charcot's joint of left foot Asthma GERD (gastroesophageal reflux disease) History of DVT (deep vein thrombosis) Bimalleolar ankle fracture Paroxysmal SVT (supraventricular tachycardia) Premature ventricular contraction Hyperlipidemia Diabetes mellitus, type II Home Medications ?Medication ?Instructions ?Recorded ?Last Taken ?Type aspirin 81 mg tablet,delayed 81 mg PO DAILY heart health 11/24/17 02/06/24 History release ramipril 10 mg capsule 10 mg PO BID HEART 01/19/19 02/06/24 History cholecalciferol (vitamin D3) 1,250 1,250 mcg PO QWEEK SUPPLEMENT 12/03/19 02/05/24 History mcg (50,000 unit) capsule furosemide 20 mg tablet 20 mg PO DAILY PRN water pill 01/22/21 Unknown History budesonide-formoterol HFA 160 2 puff inhalation BID ASTHMA 12/21/21 02/06/24 History mcg-4.5 mcg/actuation aerosol inhaler zolpidem 5 mg tablet 2.5 mg PO QHS PRN Insomnia 02/11/22 Unknown History insulin lispro 100 unit/mL 6 unit subcut TIDCM dm 06/22/22 02/06/24 History subcutaneous solution omeprazole magnesium 20 mg 20 mg PO DAILY GERD 06/22/22 02/06/24 History tablet,delayed release (Prilosec OTC) acetaminophen 325 mg tablet 650 mg (2 x 325 mg) PO Q6H PRN PRN 08/02/22 Unknown Rx (Tylenol) Pain 1-10 Or Fever >100.7 #0 tabs amlodipine 10 mg tablet 5 mg PO DAILY 10/01/23 02/06/24 History metoprolol tartrate 50 mg tablet 25 mg PO Q12H heart rate, BP 10/01/23 02/06/24 History insulin glargine 100 unit/mL (3 27 unit subcut QHS 11/07/23 02/05/24 History mL) subcutaneous pen (Lantus Solostar U-100 Insulin) blood sugar diagnostic (OneTouch 02/06/24 Unknown History Ultra Test strips) budesonide-formoterol HFA 160 2 puff inhalation BID #10.2 grams 03/02/24 Unknown Rx mcg-4.5 mcg/actuation aerosol inhaler (Symbicort) Allergy/AdvReac Type Severity Reaction Status Date / Time hydromorphone Allergy Severe Anaphylaxis Verified 05/04/24 14:45 tramadol Allergy Severe Anaphylaxis Verified 05/04/24 14:45 amiodarone Allergy Intermediate Swelling Verified 05/04/24 14:45 [place] [employer] Allergy Intermediate Hives Verified 05/04/24 14:45 morphine Allergy Intermediate confusion Verified 05/04/24 14:45 moxifloxacin Allergy Intermediate Shortness Verified 05/04/24 14:45 of breath nabumetone Allergy Intermediate damaged Verified 05/04/24 14:45 kidney penicillin G Allergy Intermediate TURNS BLUE Verified 05/04/24 14:45 propoxyphene Allergy Intermediate PT UNSURE Verified 05/04/24 14:45 OF REACTION amlodipine Allergy Mild Abd Verified 05/04/24 14:45 cramps/diarrhea desloratadine Allergy Mild headache Verified 05/04/24 14:45 glutamine (From Airborne Allergy Mild Itching Verified 05/04/24 14:45 (ascorbate sodium)) herbal complex no.124 (From Allergy Mild Itching Verified 05/04/24 14:45 [place] (ascorbate sodium)) hydrocodone (From [place]) Allergy Mild dystonia Verified 05/04/24 14:45 lysine HCl (From Airborne Allergy Mild Itching Verified 05/04/24 14:45 (ascorbate sodium)) multivitamin with minerals Allergy Mild Itching Verified 05/04/24 14:45 (From Airborne (ascorbate sodium)) pravastatin Allergy Unknown unknown Verified 05/04/24 14:45 rosuvastatin (From Crestor) Allergy Unknown myalgias Verified 05/04/24 14:45 simvastatin Allergy Unknown unknown Verified 05/04/24 14:45 escitalopram Allergy Other Verified 05/04/24 14:45 hydrochlorothiazide Allergy Other Verified 05/04/24 14:45 Qxtjahc-NVV-SyF Reductase AdvReac Severe myalgias Verified 05/04/24 14:45 Inhibitor (Bbqizzf-Aoq-Ddc Reductase Inhibitor) amoxicillin (From Augmentin) AdvReac Other Verified 05/04/24 14:45 clavulanic acid (From AdvReac Other Verified 05/04/24 14:45 Augmentin) codeine AdvReac Nausea Verified 05/04/24 14:45 naproxen (From Naprosyn) AdvReac Nausea Verified 05/04/24 14:45 oseltamivir (From Tamiflu) AdvReac HALLUCINATI Verified 05/04/24 14:45 ONS Family History Mother Aortic stenosis Presence of permanent cardiac pacemaker Surgical History History of herniorrhaphy Status post ORIF of fracture of ankle History of tonsillectomy History of cholecystectomy Social History household members: spouse Smoking Status: Former smoker alcohol intake: never substance use type: does not use caffeine: Yes Type: coffee Number of servings: 3 ROS ROS ED Constitutional Constitutional ED: Denies chills, fever(s) or subjective Eyes Eyes: Reports blurry vision bilateral (This occurred when patient was hypoglycemic.); Denies change in vision or diplopia ENT ENT ED: Denies ear pain or rhinorrhea Cardiovascular Cardiovascular: Reports palpitations; Denies chest pain or racing heartbeat Respiratory/Chest Respiratory/Chest: Denies cough, dyspnea or dyspnea on exertion Gastrointestinal Gastrointestinal: Reports nausea; Denies abdominal pain or vomiting Genitourinary Genitourinary ED: Denies dysuria, hematuria or urinary frequency Musculoskeletal Musculoskeletal: Denies arthralgias, back pain or neck pain Integumentary Denies rash Neurologic Neurologic: Denies headache(s) Endocrine Endocrinology: Denies cold intolerance or heat intolerance EXAM Physical Exam Const Vital Signs: 05/04/24 14:45 Temperature 96 F L Temperature Source Temporal Pulse Rate 67 Respiratory Rate 18 Blood Pressure 168/58 H Blood Pressure Mean 94 Pulse Ox 98 Oxygen Delivery Method Room Air Positive well nourished and well developed Constitutional Narrative: Patient's BMI is greater than 40 General Appearance ED: well developed, NAD and pallor HEENT Reports moist mucous membranes HEENT Narrative: Head is atraumatic normocephalic. Ears normal. Nares patent. Eyes PERRL and EOMs intact bilaterally General Eye ED: Negative for pale conjunctiva or scleral icterus Chest Wall inspection of chest normal and palpation of chest normal Resp normal respiratory effort and clear to auscultation bilaterally Cardio regular rate, regular rhythm, S1 normal heart sound, S2 normal heart sound and no murmurs GI normal to inspection, nondistended, normoactive bowel sounds, non-tender, non- distended and no masses GI Narrative: Unable assess for hepatosplenomegaly due to body habitus. Extremity Extremity Narrative: Patient has braces on due to Charcot foot bilateral. She also has a fracture of her left ankle. General Extremety ED: Yes edema General Extremity: edema Neuro oriented x3 Sensorium / Orientation: alert Psych mental status grossly normal Skin no wounds and No skin turgor normal General Skin Exam: pallor; Negative for jaundice MDM MDM MDM Narrative Medical decision making narrative: Patient had hyperglycemia due to changing the time of her meal and not altering the dose of her sliding scale insulin or timing of her insulin. Patient had nurse protocol orders initiated. Patient's symptoms are due to her hypoglycemia. No further workup is needed at this time. History & Record Review Additional record(s) reviewed:: Prior ED visit (Patient was seen in February for frequent premature beats. She was seen in January for hyperglycemia as well as for hypertension. She has had several visits for elevated blood sugar.) and Prior labs Lab Data Attestation: I reviewed the patient's lab results. Lab results narrative: CBC is normal. Comprehensive metabolic panel is marked for glucose of 160 with normal CO2 anion gap. BNP is slight elevated 123 and troponin is normal. There is no need for second troponin. Labs: Laboratory Results - last 24 hr 05/04/24 15:02 WBC 6.9 RBC 4.39 Hgb 12.9 Hct 38.7 MCV 88.2 MCH 29.4 MCHC 33.3 RDW Std Deviation 41.0 RDW Coeff of Madalyn 12.7 Plt Count 198 MPV 12.1 H Immature Gran % (Auto) 0.100 Neut % (Auto) 69.0 Lymph % (Auto) 18.1 L [place] % (Auto) 7.3 Eos % (Auto) 4.9 Baso % (Auto) 0.6 Absolute Neuts (auto) 4.8 Absolute Lymphs (auto) 1.25 Nucleated RBC % 0 Sodium 140 Potassium 4.0 Chloride 107 Carbon Dioxide 27.0 Anion Gap 6 BUN 23 H Creatinine 0.94 Est GFR (MDRD) Af Amer 74 Est GFR (MDRD) Non-Af 61 BUN/Creatinine Ratio 24.4 H Glucose 160 H Calcium 9.1 Troponin I High Sens 10 B-Natriuretic Peptide 123.7 H Radiography Diagnostic Testing: Clinical Impression(s) from Imaging Studies Chest X-Ray 05/04/24 15:30 IMPRESSION: Normal x-ray examination of the chest. Electronically Signed: Leandro Berumen MD at 15:45 EDT , Rhythm Strip Rhythm Strip: Sinus Rhythm Rate: 68 Ectopy: PVC(s) (Few to bigeminy) and PAC(s) (Few) EKG Initial EKG: Attestation: I personally reviewed and interpreted this EKG as follows: Interpretation: Sinus Rhythm (Rate is 65. There are premature atrial complexes noted. There is no PVCs noted. CT interval is under 34 ms per cures duration 84 ms. QT duration 124 ms. [place] is normal. Other than the premature beats the EKG is normal.) Discharge Plan Triage Chief Complaint: Palpitations ED Provider: Mark Castillo Dx/Rx/DC Orders Clinical Impression: Frequent ventricular premature beats, Essential hypertension, Hyperlipidemia, A trial premature beats, Hyperglycemia due to type 1 diabetes mellitus Instructions: ED About Arrhythmias Prescriptions: No Action aspirin 81 mg tablet,delayed release (DR/EC) 81 mg PO DAILY Patient Comments: only takes sometimes cholecalciferol (vitamin D3) 1,250 mcg (50,000 unit) capsule 1,250 mcg PO QWEEK furosemide 20 mg tablet 20 mg PO DAILY PRN (Reason: water pill) insulin lispro 100 unit/mL solution 6 unit subcut TIDCM Protocol: 4. Sliding Scale Insulin High-Med Dosing Condition: 150-199 mg/dl = 2 units Condition: 200-259 mg/dl = 4 units Condition: 260-324 mg/dl = 6 units Condition: 325-374 mg/dl = 8 units Condition: 375-409 mg/dl = 10 units Condition: 410-449 mg/dl = 11 units Condition: Greater than 449 call physician Protocol Text: - Use for Total Daily Dose of Insulin 56-80 units - Patient who are insulin resistant or septic HIGH MEDIUM DOSING ALGORITHM Patient Comments: INJECT 3 TO 10 UNITS SUBCUTANEOUSLY BEFORE MEALS DIRECTED budesonide-formoterol 160-4.5 mcg/actuation HFA aerosol inhaler 2 puff inhalation BID omeprazole magnesium [Prilosec OTC] 20 mg tablet,delayed release (DR/EC) 20 mg PO DAILY ramipril 10 MG capsule 10 mg PO BID Patient Comments: TAKE 1 CAPSULE BY MOUTH TWICE DAILY zolpidem 5 mg Tablet 2.5 mg PO QHS PRN (Reason: Insomnia) acetaminophen [Tylenol] 325 mg Tablet 650 mg PO Q6H PRN PRN (Reason: Pain 1-10 Or Fever >100.7) Qty: 0 0RF metoprolol tartrate 50 mg tablet 25 mg PO Q12H Patient Comments: takes half tablet in morning and night amlodipine 10 mg tablet 5 mg PO DAILY Patient Comments: takes half tablet/day (DME) OneTouch Ultra Test Strip MISCELLANEOUS Patient Comments: [NO ORIGINAL SIG] budesonide-formoterol [Symbicort] 160-4.5 mcg/actuation HFA aerosol inhaler 2 puff inhalation BID Qty: 10.2 0RF insulin glargine [Lantus Solostar U-100 Insulin] 100 unit/mL (3 mL) insulin pen 27 unit subcut QHS Primary Care Provider: Luzma Palencia Referrals: Luzma Palencia MD [Primary Care Provider] - 1-2 Weeks Print Language: Azeri Disposition Disposition: Home, Self Care
[2024-05-04 16:43] VITALS: BP 152/66; PULSE 74; RESP 18; TEMP 36.6; O2SAT 99
[2024-05-04 17:04] LABS: Reflex Troponin-HS? (from REC) Y
== END 2024-05-04 16:43 | disposition home or self-care (01) ==
LOC: ED 16:37
PROVIDERS: Emergency Provider Emergency Medicine; PCP Internal Medicine; Visit Provider Emergency Medicine
DX: I49.3 Ventricular premature depolarization (principal); I11.0 Hypertensive heart disease with heart failure; I50.9 Heart failure, unspecified; E10.65 Type 1 diabetes mellitus with hyperglycemia; E78.5 Hyperlipidemia, unspecified; I49.1 Atrial premature depolarization; G47.33 Obstructive sleep apnea (adult) (pediatric); Z87.891 Personal history of nicotine dependence; Z86.718 Personal history of other venous thrombosis and embolism
CPT/HCPCS: 71045; 80048; 83880; 84484; 85025; 93005; 99284; A4216

== ENCOUNTER 2024-05-18 19:18 | Emergency (ER) | payer MEDICARE, SELFPAY ==
[2024-05-18 19:24] VITALS: BP 144/73; PULSE 52; RESP 18; TEMP 36.7; O2SAT 96; BMI 31.9
[2024-05-18 19:37] VITALS: O2SAT 96
--- NOTE | 2024-05-18 19:52 | EKG12_ITS ---
Test Reason : SOB Blood Pressure : */* mmHG Vent. Rate : 55 BPM Atrial Rate : 55 BPM P-R Int : 132 ms QRS Dur : 80 ms QT Int : 456 ms P-R-T Axes : 63 42 59 degrees QTcB Int : 436 ms Sinus bradycardia with sinus arrhythmia Otherwise normal ECG Confirmed by NAYANA JOSE, KARRI ([id number]), medical transcription editor RHONDA BRADFORD ([id number]) on 05/21/2024 9:38:58 AM Referred By: DARSHAN Confirmed By: KARRI KRAUS MD
--- NOTE | 2024-05-18 19:54 | EDS_ITS ---
HPI <JANUARY Aguirre - Last Filed: 05/18/24 21:46> History of Present Illness Chief Complaint: Shortness of Breath Narrative Narrative: Patient is a 70-year-old female with history of hypertension, obesity, history of tachycardia who presents to the emergency department for palpitations. Patient has been doing these palpitations for several months. Patient states today, she felt a hard pounding in her chest, and this made her anxious, she felt short of breath. Patient states she is feeling better however she is concerned. She has spoke with the nurse practitioners and cardiology regarding this, however she is here for reevaluation. [facility] <JANUARY Aguirre - Last Filed: 05/18/24 21:46> [facility] Medical History Hyperglycemia due to type 2 diabetes mellitus THAIS (obstructive sleep apnea) Palpitations Sinus bradycardia Abnormal EKG Essential hypertension Premature atrial contractions Charcot's joint of left foot Asthma GERD (gastroesophageal reflux disease) History of DVT (deep vein thrombosis) Bimalleolar ankle fracture Paroxysmal SVT (supraventricular tachycardia) Premature ventricular contraction Hyperlipidemia Diabetes mellitus, type II Home Medications ?Medication ?Instructions ?Recorded ?Last Taken ?Type aspirin 81 mg tablet,delayed 81 mg PO DAILY heart health 11/24/17 02/06/24 History release ramipril 10 mg capsule 10 mg PO BID HEART 01/19/19 02/06/24 History cholecalciferol (vitamin D3) 1,250 1,250 mcg PO QWEEK SUPPLEMENT 12/03/19 02/05/24 History mcg (50,000 unit) capsule furosemide 20 mg tablet 20 mg PO DAILY PRN water pill 01/22/21 Unknown History budesonide-formoterol HFA 160 2 puff inhalation BID ASTHMA 12/21/21 02/06/24 History mcg-4.5 mcg/actuation aerosol inhaler zolpidem 5 mg tablet 2.5 mg PO QHS PRN Insomnia 02/11/22 Unknown History insulin lispro 100 unit/mL 6 unit subcut TIDCM dm 06/22/22 02/06/24 History subcutaneous solution omeprazole magnesium 20 mg 20 mg PO DAILY GERD 06/22/22 02/06/24 History tablet,delayed release (Prilosec OTC) acetaminophen 325 mg tablet 650 mg (2 x 325 mg) PO Q6H PRN PRN 08/02/22 Unknown Rx (Tylenol) Pain 1-10 Or Fever >100.7 #0 tabs amlodipine 10 mg tablet 5 mg PO DAILY 10/01/23 02/06/24 History metoprolol tartrate 50 mg tablet 25 mg PO Q12H heart rate, BP 10/01/23 02/06/24 History insulin glargine 100 unit/mL (3 27 unit subcut QHS 11/07/23 02/05/24 History mL) subcutaneous pen (Lantus Solostar U-100 Insulin) blood sugar diagnostic (OneTouch 02/06/24 Unknown History Ultra Test strips) budesonide-formoterol HFA 160 2 puff inhalation BID #10.2 grams 03/02/24 Unknown Rx mcg-4.5 mcg/actuation aerosol inhaler (Symbicort) Allergy/AdvReac Type Severity Reaction Status Date / Time hydromorphone Allergy Severe Anaphylaxis Verified 05/18/24 19:24 tramadol Allergy Severe Anaphylaxis Verified 05/18/24 19:24 amiodarone Allergy Intermediate Swelling Verified 05/18/24 19:24 [place] And Derivatives Allergy Intermediate Hives Verified 05/18/24 19:24 morphine Allergy Intermediate confusion Verified 05/18/24 19:24 moxifloxacin Allergy Intermediate Shortness Verified 05/18/24 19:24 of breath nabumetone Allergy Intermediate damaged Verified 05/18/24 19:24 kidney penicillin G Allergy Intermediate TURNS BLUE Verified 05/18/24 19:24 propoxyphene Allergy Intermediate PT UNSURE Verified 05/18/24 19:24 OF REACTION amlodipine Allergy Mild Abd Verified 05/18/24 19:24 cramps/diarrhea desloratadine Allergy Mild headache Verified 05/18/24 19:24 glutamine (From Airborne Allergy Mild Itching Verified 05/18/24 19:24 (ascorbate sodium)) herbal complex no.124 (From Allergy Mild Itching Verified 05/18/24 19:24 Airborne (ascorbate sodium)) hydrocodone (From [place]) Allergy Mild dystonia Verified 05/18/24 19:24 lysine HCl (From Airborne Allergy Mild Itching Verified 05/18/24 19:24 (ascorbate sodium)) multivitamin with minerals Allergy Mild Itching Verified 05/18/24 19:24 (From Airborne (ascorbate sodium)) pravastatin Allergy Unknown unknown Verified 05/18/24 19:24 rosuvastatin (From Crestor) Allergy Unknown myalgias Verified 05/18/24 19:24 simvastatin Allergy Unknown unknown Verified 05/18/24 19:24 escitalopram Allergy Other Verified 05/18/24 19:24 hydrochlorothiazide Allergy Other Verified 05/18/24 19:24 Rylzqxi-[id number]-HqG Reductase AdvReac Severe myalgias Verified 05/18/24 19:24 Inhibitor (Njhtcnd-Qhl-Hgh Reductase Inhibitor) amoxicillin (From Augmentin) AdvReac Other Verified 05/18/24 19:24 clavulanic acid (From AdvReac Other Verified 05/18/24 19:24 Augmentin) codeine AdvReac Nausea Verified 05/18/24 19:24 naproxen (From Naprosyn) AdvReac Nausea Verified 05/18/24 19:24 oseltamivir (From Tamiflu) AdvReac HALLUCINATI Verified 05/18/24 19:24 ONS Family History Mother Aortic stenosis Presence of permanent cardiac pacemaker Surgical History History of herniorrhaphy Status post ORIF of fracture of ankle History of tonsillectomy History of cholecystectomy Social History household members: spouse Smoking Status: Former smoker alcohol intake: never substance use type: does not use caffeine: Yes Type: coffee Number of servings: 3 ROS <JANUARY Aguirre - Last Filed: 05/18/24 21:46> ROS ED ROS Narrative Constitutional: Negative for fever, chills, weight loss, weakness Eyes: Negative for vision loss, vision change, double vision ENT: Negative for any sore throat, ear pain, congestion Cardiovascular: Negative for any chest pain. Positive palpitations, chest tightness Respiratory: Negative for any cough, sputum production, hemoptysis, orthopnea. Positive for dyspnea, dyspnea on exertion Gastrointestinal: Negative for any abdominal pain, nausea, vomiting, diarrhea, constipation, blood in stool, blood in vomit : Negative for any urinary frequency, dysuria, retention, blood in urine Muscle skeletal: Negative for any neck pain, back pain Neurological: Negative for any headache, syncope, dizziness Skin: Negative for any rashes, itching, abrasions, lacerations Psychiatric: Negative for any depression, anxiety, stress, suicidal ideation, homicidal ideation Hematologic: Negative for any excessive bruising, easy bleeding EXAM <JANUARY Aguirre - Last Filed: 05/18/24 21:46> Physical Exam Narrative Exam Narrative: Vital signs reviewed. HEET: Head normocephalic atraumatic, TMs clear bilaterally. Posterior pharynx is clear, moist mucous membranes. Nares clear bilaterally. Neck: Supple with no lymphadenopathy or tenderness. No signs of meningismus. Cardiac: Bradycardic rate no murmurs gallops or rubs, equal peripheral pulses bilaterally. Respiratory: Lungs clear to auscultation bilaterally. No chest tenderness. Abdomen: Soft, nontender, nondistended. No abdominal bruit or pulsatile masses. No hepatosplenomegaly Extremities: No peripheral edema, no signs of gross trauma or deformity. Active full range of motion of all extremities. Neuro: Cranial nerves II through XII intact, no focal neurological deficits. Skin: Clean dry and intact with no rash, purpura, petechiae, vesicles or pustules. Backs/flank: No CVA tenderness, no midline spinal tenderness, no deformity. Psych: Normal mood and affect. No SI, HI or acute psychosis. Const Vital Signs: 05/18/24 19:24 05/18/24 19:37 05/18/24 21:19 Temperature 98.1 F Temperature Source Oral Pulse Rate 52 L 55 L Respiratory Rate 18 14 Respiratory Effort Normal Short of Breath Respiratory Depth Normal Respiratory Pattern Normal Blood Pressure 144/73 H Blood Pressure Mean 96 Pulse Ox 96 95 Oxygen Delivery Method Room Air Room Air Positive well nourished, well developed and obese General Appearance ED: well developed Nutritional Appearance: obese <Dr. Holland Sanches DO - Last Filed: 05/18/24 23:16> Physical Exam Const Vital Signs: 05/18/24 19:24 05/18/24 19:37 05/18/24 21:19 Temperature 98.1 F Temperature Source Oral Pulse Rate 52 L 55 L Respiratory Rate 18 14 Respiratory Effort Normal Short of Breath Respiratory Depth Normal Respiratory Pattern Normal Blood Pressure 144/73 H Blood Pressure Mean 96 Pulse Ox 96 95 Oxygen Delivery Method Room Air Room Air MDM <Chris DorseyJANUARY - Last Filed: 05/18/24 21:46> [facility] Lab Data Labs: Laboratory Results - last 24 hr 05/18/24 05/18/24 05/18/24 19:35 21:37 22:23 WBC 6.5 RBC 4.39 Hgb 12.8 Hct 39.1 MCV 89.1 MCH 29.2 MCHC 32.7 RDW Std Deviation 41.8 RDW Coeff of Madalyn 12.7 Plt Count 194 MPV 12.6 H Immature Gran % (Auto) 0.200 Neut % (Auto) 70.3 H Lymph % (Auto) 15.8 L [place] % (Auto) 8.2 Eos % (Auto) 5.0 Baso % (Auto) 0.5 Absolute Neuts (auto) 4.6 Absolute Lymphs (auto) 1.02 Nucleated RBC % 0 Sodium 140 Potassium 4.1 Chloride 106 Carbon Dioxide 29.0 Anion Gap 5 BUN 21 H Creatinine 1.09 H Estim Creat Clear Calc 53.02 Est GFR (MDRD) Af Amer 62 Est GFR (MDRD) Non-Af 52 L BUN/Creatinine Ratio 19.3 Glucose 117 H Calcium 9.1 Troponin I High Sens 8 9 B-Natriuretic Peptide 96.5 TSH 2.770 POC Glucose 139 H Radiography Diagnostic Testing: Clinical Impression(s) from Imaging Studies Chest X-Ray 05/18/24 19:57 IMPRESSION: No acute cardiopulmonary pathology Electronically Signed: Jerry Guerra MD at 20:44 EDT Reading Location ID and State: [facility] / [place] Tel , Service support , EKG EKG shows sinus bradycardia with sinus arrhythmia: Attestation: I personally reviewed and interpreted this EKG as follows: Comments: Sinus bradycardia with sinus arrhythmia, rate of 55 bpm, MI interval 132 ms, QRS duration 80 ms, no acute ST elevation, no acute infarct noted. Treatment and Re-Evaluation :: Differential diagnosis includes however is not limited to: ACS, [place], palpitations, anxiety, pneumonia Patient appears generally well, vital signs are stable, patient is nontoxic- appearing. Presenting to the emergency department complaints of palpitations which she has a history of. Patient's EKG shows a sinus bradycardia with sinus arrhythmia, no acute ST elevation, patient will receive a chest x-ray, basic laboratory values including troponins x 2. All radiologic examinations were read, reviewed by the emergency department attending. From these reads, a plan of care will be put in place. Patient's laboratory values show a normal CBC, patient's chemistries show creatinine 1.09, slightly elevated however baseline is 0.9, patient's glucose is 117, BNP was 96.5 which is negative, TSH within normal limits. Troponin was 8. Patient's EKG was unremarkable, chest x-ray showed no acute cardiopulmonary pathology. Patient is currently waiting for a second troponin. Second troponin was negative. Patient will continue to follow-up outpatient. She will follow-up with cardiology. She is happy the plan of care, was given return precaution. Stable for discharge. <Dr. Holland Sanches, DO - Last Filed: 05/18/24 23:16> MDM History & Record Review Discussion w/independent historian: Patient Lab Data Attestation: I reviewed the patient's lab results. Labs: Laboratory Results - last 24 hr 05/18/24 05/18/24 05/18/24 19:35 21:37 22:23 WBC 6.5 RBC 4.39 Hgb 12.8 Hct 39.1 MCV 89.1 MCH 29.2 MCHC 32.7 RDW Std Deviation 41.8 RDW Coeff of Amdalyn 12.7 Plt Count 194 MPV 12.6 H Immature Gran % (Auto) 0.200 Neut % (Auto) 70.3 H Lymph % (Auto) 15.8 L [place] % (Auto) 8.2 Eos % (Auto) 5.0 Baso % (Auto) 0.5 Absolute Neuts (auto) 4.6 Absolute Lymphs (auto) 1.02 Nucleated RBC % 0 Sodium 140 Potassium 4.1 Chloride 106 Carbon Dioxide 29.0 Anion Gap 5 BUN 21 H Creatinine 1.09 H Estim Creat Clear Calc 53.02 Est GFR (MDRD) Af Amer 62 Est GFR (MDRD) Non-Af 52 L BUN/Creatinine Ratio 19.3 Glucose 117 H Calcium 9.1 Troponin I High Sens 8 9 B-Natriuretic Peptide 96.5 TSH 2.770 POC Glucose 139 H Radiography Diagnostic Testing: Clinical Impression(s) from Imaging Studies Chest X-Ray 05/18/24 19:57 IMPRESSION: No acute cardiopulmonary pathology Electronically Signed: Jerry Guerra MD at 20:44 EDT , Treatment and Re-Evaluation :: Differential diagnosis includes however is not limited to: ACS, [place], palpitations, anxiety, pneumonia Patient appears generally well, vital signs are stable, patient is nontoxic- appearing. Presenting to the emergency department complaints of palpitations which she has a history of. Patient's EKG shows a sinus bradycardia with sinus arrhythmia, no acute ST elevation, patient will receive a chest x-ray, basic laboratory values including troponins x 2. All radiologic examinations were read, reviewed by the emergency department attending. From these reads, a plan of care will be put in place. Patient's laboratory values show a normal CBC, patient's chemistries show creatinine 1.09, slightly elevated however baseline is 0.9, patient's glucose is 117, BNP was 96.5 which is negative, TSH within normal limits. Troponin was 8. Patient's EKG was unremarkable, chest x-ray showed no acute cardiopulmonary pathology. Patient is currently waiting for a second troponin. Second troponin was negative. Patient will continue to follow-up outpatient. She will follow-up with cardiology. She is happy the plan of care, was given return precaution. Stable for discharge. I have personally performed a face to face assessment of the patient and have reviewed the ABIMBOLA Note. I performed a substantive portion of the visit including all aspects of the following. My dumont findings include: History is 78-year-old female presenting to the emergency room with abnormal sensation of the chest. Patient states that she has a history of SVT and used to be on medicines for it but has not had any events recently. She states that she has the occasional extra beat of her heart but today she went to get up and it felt different. She states that she felt near syncopal. She states it only lasted seconds but it concerned her and she was worried so she came to emergency. She follows with cardiology locally. Exam is afebrile vital signs are stable heart regular without murmur lung sounds are clear and equal patient appears in a regular rhythm on the monitor. Medical Decison Making 2 sets of cardiac enzymes are normal. My independent interpretation the chest x-ray is no acute process. Hemoglobin is stable at 12.8 patient appears well-hydrated BUN 21 creatinine 1.09 normal potassium sodium. TSH 2.7 BNP 96.5. Patient said no events on the monitor. We spoke with the patient on the above findings. We feel that she is safe for discharge would recommend cardiology follow-up as scheduled return if worsening concerns Discharge Plan Triage Chief Complaint: Shortness of Breath ED Midlevel Provider: Chris Dorsey ED Provider: Holland Sanches Dx/Rx/DC Orders Clinical Impression: Heart palpitations Instructions: ED Palpitations Prescriptions: No Action aspirin 81 mg tablet,delayed release (DR/EC) 81 mg PO DAILY Patient Comments: only takes sometimes cholecalciferol (vitamin D3) 1,250 mcg (50,000 unit) capsule 1,250 mcg PO QWEEK furosemide 20 mg tablet 20 mg PO DAILY PRN (Reason: water pill) insulin lispro 100 unit/mL solution 6 unit subcut TIDCM Protocol: 4. Sliding Scale Insulin High-Med Dosing Condition: 150-199 mg/dl = 2 units Condition: 200-259 mg/dl = 4 units Condition: 260-324 mg/dl = 6 units Condition: 325-374 mg/dl = 8 units Condition: 375-409 mg/dl = 10 units Condition: 410-449 mg/dl = 11 units Condition: Greater than 449 call physician Protocol Text: - Use for Total Daily Dose of Insulin 56-80 units - Patient who are insulin resistant or septic HIGH MEDIUM DOSING ALGORITHM Patient Comments: INJECT 3 TO 10 UNITS SUBCUTANEOUSLY BEFORE MEALS DIRECTED budesonide-formoterol 160-4.5 mcg/actuation HFA aerosol inhaler 2 puff inhalation BID omeprazole magnesium [Prilosec OTC] 20 mg tablet,delayed release (DR/EC) 20 mg PO DAILY ramipril 10 MG capsule 10 mg PO BID Patient Comments: TAKE 1 CAPSULE BY MOUTH TWICE DAILY zolpidem 5 mg Tablet 2.5 mg PO QHS PRN (Reason: Insomnia) acetaminophen [Tylenol] 325 mg Tablet 650 mg PO Q6H PRN PRN (Reason: Pain 1-10 Or Fever >100.7) Qty: 0 0RF metoprolol tartrate 50 mg tablet 25 mg PO Q12H Patient Comments: takes half tablet in morning and night amlodipine 10 mg tablet 5 mg PO DAILY Patient Comments: takes half tablet/day (DME) OneTouch Ultra Test Strip MISCELLANEOUS Patient Comments: [NO ORIGINAL SIG] budesonide-formoterol [Symbicort] 160-4.5 mcg/actuation HFA aerosol inhaler 2 puff inhalation BID Qty: 10.2 0RF insulin glargine [Lantus Solostar U-100 Insulin] 100 unit/mL (3 mL) insulin pen 27 unit subcut QHS Primary Care Provider: Luzma Palencia Referrals: Luzma Palencia MD [Primary Care Provider] - Jae Lee SIX SIGMA BLACK BELT ENGINEER, SIX SIGMA BLACK BELT ENGINEER-C [Med Staff - Adv Practice Prof] - Activity Restrictions/Additional Instructions: Please continue to follow-up outpatient. Print Language: Malagasy Disposition Disposition: Home, Self Care
--- NOTE | 2024-05-18 19:57 | RAD_ITS ---
STUDY: X-RAY CHEST REASON FOR EXAM: Female, 78 years old. chest pain TECHNIQUE: AP portable COMPARISON: May 04 2024 FINDINGS: The lungs are clear and expanded. There is no demonstrated pleural abnormality. Heart appears mildly enlarged although exaggerated by radiographic technique.. Normal mediastinum and christie. Normal visualized pulmonary arteries. Normal visualized aortic arch and descending thoracic aorta. Dorsal spine and shoulders demonstrate degenerative changes.. Normal visualized ribs, and clavicles There is no demonstrated abnormality of the visualized soft tissue structures of the upper abdomen. RAD/Chest 1 View (Portable) IMPRESSION: No acute cardiopulmonary pathology Electronically Signed: Jerry Guerra MD at 20:44 EDT ,
[2024-05-18 20:22] LABS: Absolute Lymphocyte Count 1.02 X10^3/uL (0.83-4.51); Absolute Neutrophil Count 4.6 X10^3/uL (2.0-7.7); Basophil# 0.03 X10^3/uL; Basophil% 0.5 % (0-1); Eosinophil# 0.32 X10^3/uL; Hematocrit 39.1 % (37-47); Hemoglobin 12.8 g/dL (12.0-15.0); Lymphocyte # 1.02 X10^3/ul (0.83-4.51); Lymphocyte % 15.8 % (19-41); Mean Corp Hgb Conc 32.7 g/dL (32-36); Mean Corpuscular Hgb 29.2 pg (27.0-32.0); Mean Corpuscular Volume 89.1 fL (81-99); Mean Platelet Vol. 12.6 fl (6.2-12.0); Monocyte# 0.53 X10^3/uL; Monocyte% 8.2 % (0-10); NRBC Flagged by Analyzer 0 % (0-5); Neutrophil # 4.55 X10^3/uL (2.7-7.7); Neutrophil % 70.3 % (47-70); Platelet Count 194 K/mm3 (150-450); RBC Distribution Width CV 12.7 % (11.6-14.6); RBC Distribution Width SD 41.8 fl (35.1-43.9); Red Blood Count 4.39 M/mm3 (4.2-5.4); White Blood Count 6.5 K/mm3 (4.4-11.0)
[2024-05-18 20:45] LABS: Anion Gap 5 (5-15); BUN 21 mg/dL (7-18); BUN/Creat Ratio 19.3 RATIO (10-20); Calcium,Total 9.1 mg/dL (8.5-10.1); Chloride 106 mmol/L (98-107); Creatinine, Serum 1.09 mg/dL (0.55-1.02); EST Glomerular Filtration Rate 52 mL/min (>60); Est Glom Filt Rate - Afr Amer 62 mL/min (>60); Estimated Creatinine Clearance 53.02 ml/min; Glucose 117 mg/dL (74-106); Potassium 4.1 mmol/L (3.5-5.1); Sodium Level 140 mmol/L (136-145); Troponin-I HS (w/2H Reflex) 8 pg/mL (3.0-54.0)
[2024-05-18 20:52] LABS: BNP,B-Type NATRIURETIC PEPTIDE 96.5 pg/mL (0-100)
[2024-05-18 21:19] VITALS: PULSE 55; RESP 14; O2SAT 95
[2024-05-18 21:54] LABS: Bedside Glucose 139 mg/dL (74-106)
[2024-05-18 22:11] LABS: Reflex Troponin-HS? (from REC) Y
[2024-05-18 22:44] LABS: Troponin-I HS 9 pg/mL (3.0-54.0)
[2024-05-18 23:00] VITALS: BP 140/88; PULSE 69; RESP 25; O2SAT 97
[2024-05-18 23:15] VITALS: BP 141/70; PULSE 73; RESP 19; TEMP 37.2; O2SAT 97
== END 2024-05-18 23:16 | disposition home or self-care (01) ==
PROVIDERS: Nurse Practitioner; Emergency Provider Emergency Medicine; PCP Internal Medicine; Visit Provider Emergency Medicine
DX: R00.2 Palpitations (principal); E11.9 Type 2 diabetes mellitus without complications; G47.33 Obstructive sleep apnea (adult) (pediatric); Z86.718 Personal history of other venous thrombosis and embolism; Z87.891 Personal history of nicotine dependence
CPT/HCPCS: 71045; 80048; 82962; 83880; 84443; 84484; 85025; 93005; 99285; A4216

== ENCOUNTER 2024-05-25 04:43 | Emergency (ER) | payer MEDICARE, SELFPAY ==
[2024-05-25 04:47] VITALS: BP 161/82; PULSE 72; RESP 16; TEMP 36.1; O2SAT 98; BMI 46.1
[2024-05-25 05:26] LABS: Absolute Lymphocyte Count 0.73 X10^3/uL (0.83-4.51); Absolute Neutrophil Count 5.6 X10^3/uL (2.0-7.7); Basophil# 0.03 X10^3/uL; Basophil% 0.4 % (0-1); Eosinophil# 0.26 X10^3/uL; Eosinophils% 3.7 % (0-5); Lymphocyte # 0.73 X10^3/ul (0.83-4.51); Lymphocyte % 10.3 % (19-41); Mean Corp Hgb Conc 32.5 g/dL (32-36); Mean Corpuscular Volume 89.3 fL (81-99); Mean Platelet Vol. 12.7 fl (6.2-12.0); Monocyte# 0.44 X10^3/uL; Monocyte% 6.2 % (0-10); NRBC Flagged by Analyzer 0 % (0-5); Neutrophil # 5.59 X10^3/uL (2.7-7.7); Neutrophil % 79.1 % (47-70); Platelet Count 173 K/mm3 (150-450); RBC Distribution Width CV 12.7 % (11.6-14.6); RBC Distribution Width SD 41.4 fl (35.1-43.9); Red Blood Count 4.48 M/mm3 (4.2-5.4); White Blood Count 7.1 K/mm3 (4.4-11.0)
[2024-05-25 05:45] LABS: ALB/GLOB Ratio 0.9 RATIO (0.9-2.4); AST(SGOT) 15 U/L (15-37); Alanine Aminotransfer ALT/SGPT 20 U/L (13-56); Albumin, Serum 3.3 g/dL (3.2-5.0); Alkaline Phosphatase 82 U/L (45-117); Anion Gap 8 (5-15); BUN 20 mg/dL (7-18); Calcium,Total 9.1 mg/dL (8.5-10.1); Chloride 103 mmol/L (98-107); Creatinine, Serum 0.87 mg/dL (0.55-1.02); EST Glomerular Filtration Rate 67 mL/min (>60); Est Glom Filt Rate - Afr Amer 81 mL/min (>60); Estimated Creatinine Clearance 81.14 ml/min; Globulin 3.6 g/dL (2.2-4.2); Glucose 289 mg/dL (74-106); Lipase 15 U/L (13-75); Potassium 4.2 mmol/L (3.5-5.1); Protein, Total 6.9 g/dL (6.4-8.2); Sodium Level 136 mmol/L (136-145); Troponin-I HS 13 pg/mL (3.0-54.0)
[2024-05-25 06:17] VITALS: BP 121/53; PULSE 72; RESP 17; TEMP 36.1; O2SAT 95
== END 2024-05-25 06:26 | disposition home or self-care (01) ==
PROVIDERS: Emergency Provider Emergency Medicine; PCP Internal Medicine; Visit Provider Emergency Medicine
DX: R07.9 Chest pain, unspecified (principal); E11.9 Type 2 diabetes mellitus without complications; Z79.4 Long term (current) use of insulin; E78.5 Hyperlipidemia, unspecified; I10 Essential (primary) hypertension; G47.33 Obstructive sleep apnea (adult) (pediatric); Z87.891 Personal history of nicotine dependence; Z79.899 Other long term (current) drug therapy; Z79.82 Long term (current) use of aspirin; Z86.718 Personal history of other venous thrombosis and embolism
CPT/HCPCS: 71046; 80053; 83690; 84484; 85025; 93005; 99284; A4216

== ENCOUNTER 2024-05-27 17:47 | Emergency (ER) | payer MEDICARE, SELFPAY ==
[2024-05-27 17:50] VITALS: BP 135/55; PULSE 71; RESP 18; TEMP 36.6; O2SAT 95
[2024-05-27 18:24] LABS: Absolute Lymphocyte Count 1.24 X10^3/uL (0.83-4.51); Absolute Neutrophil Count 3.8 X10^3/uL (2.0-7.7); Basophil# 0.03 X10^3/uL; Basophil% 0.5 % (0-1); Eosinophil# 0.32 X10^3/uL; Eosinophils% 5.5 % (0-5); Hematocrit 37.2 % (37-47); Hemoglobin 12.2 g/dL (12.0-15.0); Lymphocyte # 1.24 X10^3/ul (0.83-4.51); Lymphocyte % 21.2 % (19-41); Mean Corp Hgb Conc 32.8 g/dL (32-36); Mean Corpuscular Volume 88.4 fL (81-99); Mean Platelet Vol. 12.6 fl (6.2-12.0); Monocyte# 0.48 X10^3/uL; Monocyte% 8.2 % (0-10); NRBC Flagged by Analyzer 0 % (0-5); Neutrophil # 3.76 X10^3/uL (2.7-7.7); Neutrophil % 64.4 % (47-70); Platelet Count 185 K/mm3 (150-450); RBC Distribution Width CV 12.9 % (11.6-14.6); RBC Distribution Width SD 41.8 fl (35.1-43.9); Red Blood Count 4.21 M/mm3 (4.2-5.4); White Blood Count 5.8 K/mm3 (4.4-11.0)
[2024-05-27 18:43] LABS: BNP,B-Type NATRIURETIC PEPTIDE 97.6 pg/mL (0-100)
[2024-05-27 18:54] LABS: Anion Gap 4 (5-15); BUN 22 mg/dL (7-18); BUN/Creat Ratio 21.6 RATIO (10-20); Calcium,Total 8.7 mg/dL (8.5-10.1); Chloride 108 mmol/L (98-107); Creatinine, Serum 1.02 mg/dL (0.55-1.02); EST Glomerular Filtration Rate 56 mL/min (>60); Est Glom Filt Rate - Afr Amer 67 mL/min (>60); Glucose 152 mg/dL (74-106); Potassium 3.8 mmol/L (3.5-5.1); Sodium Level 139 mmol/L (136-145); Troponin-I HS (w/2H Reflex) 9 pg/mL (3.0-54.0)
[2024-05-27 19:44] VITALS: BP 146/57; PULSE 62; RESP 18; O2SAT 99
[2024-05-27 20:14] LABS: Reflex Troponin-HS? (from REC) Y
[2024-05-27 20:37] LABS: Troponin-I HS 10 pg/mL (3.0-54.0)
[2024-05-27 21:02] VITALS: BP 146/80; PULSE 68; RESP 18; TEMP 36.6; O2SAT 97
== END 2024-05-27 21:03 | disposition home or self-care (01) ==
PROVIDERS: Emergency Provider Emergency Medicine; PCP Internal Medicine; Referring Provider Emergency Medicine; Visit Provider Emergency Medicine
DX: R00.2 Palpitations (principal); E11.9 Type 2 diabetes mellitus without complications; I10 Essential (primary) hypertension; E78.5 Hyperlipidemia, unspecified; G47.33 Obstructive sleep apnea (adult) (pediatric); K21.9 Gastro-esophageal reflux disease without esophagitis; Z87.891 Personal history of nicotine dependence; Z86.718 Personal history of other venous thrombosis and embolism; Z95.0 Presence of cardiac pacemaker
CPT/HCPCS: 71046; 80048; 83880; 84443; 84484; 85025; 93005; 99284; A4216

== ENCOUNTER → 2024-06-07 | Outpatient (CLI) | payer MEDICARE, SELFPAY ==
--- NOTE | 2024-06-07 06:06 | ECHOCS_ITS ---
Reason For Study: CHEST PAIN Procedure This was a 2D Doppler, Color Flow transthoracic echocardiogram. The study was technically difficult. Contrast injection was performed. Exam performed in department. Left Ventricle Normal LV size. Mild concentric left ventricular hypertrophy. Left ventricular systolic function is normal. The estimated ejection fraction is 60 %. Normal diastology for age. No regional wall motion abnormalities noted. Right Ventricle Normal RV size. Normal systolic function. Atria Normal left atrium. Normal right atrium. Mitral Valve The mitral valve is structurally normal. No prolapse or stenosis seen. Trivial mitral valve insufficiency. Tricuspid Valve Normal tricuspid valve. Trivial tricuspid valve insufficiency. Unable to estimate RV systolic pressure due to insufficient tricuspid regurgitant envelope. Aortic Valve Trisinus/trileaflet aortic valve. Mild focal aortic valve calcification. There is no aortic stenosis. Pulmonic Valve The pulmonic valve is not well visualized. Great Vessels Normal aortic root. Pericardium/Pleural No pericardial effusion. Medication 22 gauge I.V. with prn adaptor inserted into right arm. Diluted definity 2.5ml given slow IV push to enhance endocardial definition. MMode/2D Measurements & Calculations LVIDd: 5.2 cm IVSd: 1.1 cm LVOT diam: 2.0 cm LVIDs: 3.4 cm LVPWd: 1.3 cm RVDd: 3.7 cm FS: 34.5 % LVOT area: 3.2 cm2 asc Aorta Diam: 2.9 cm LAV(MOD-bp): 53.4 ml LVAd ap4: 33.7 cm2 LAV(MOD-bp) Indexed: 20.7 ml/m2 LVLd ap4: 8.8 cm LAV(MOD-sp2): 75.3 ml EDV(MOD-sp4): 103.6 ml LAV(MOD-sp4): 35.3 ml EDV(sp4-el): 110.3 ml LVAs ap4: 17.0 cm2 LVLs ap4: 7.0 cm ESV(MOD-sp4): 33.6 ml ESV(sp4-el): 35.0 ml EF(MOD-sp4): 67.6 % EF(sp4-el): 68.3 % LVAd ap2: 35.0 cm2 SV(MOD-sp4): 70.0 ml SV(MOD-sp2): 70.1 ml LVLd ap2: 8.4 cm SI(MOD-sp4): 27.1 ml/m2 SI(MOD-sp2): 27.1 ml/m2 EDV(MOD-sp2): 116.8 ml EDV(sp2-el): 123.5 ml LVAs ap2: 20.0 cm2 LVLs ap2: 7.1 cm ESV(MOD-sp2): 46.7 ml ESV(sp2-el): 47.6 ml EF(MOD-sp2): 60.0 % SV(sp4-el): 75.4 ml Ao sinus diam: 3.[address] Junction: 2.3 cm LA dimension(2D): 4.2 cm LA A4 area: 14.9 cm2 RA A4 area: 16.0 cm2 TAPSE: 1.7 cm Time Measurements MV dec time: 0.14 sec Doppler Measurements & Calculations MV E max matthew: 78.8 cm/sec Lat Peak E' Matthew: 9.7 cm/sec Med Peak E' Matthew: 7.2 cm/sec MV A max matthew: 72.9 cm/sec E/E' lat: 8.2 E/E' med: 11.0 MV E/A: 1.1 MV dec slope: 549.1 cm/sec2 Ao V2 max: 137.5 cm/sec LV V1 max: 91.7 cm/sec Ao max P.6 mmHg LV V1 max P.4 mmHg Ao V2 mean: 99.3 cm/sec LV V1 mean P.9 mmHg Ao mean P.3 mmHg LV V1 mean: 66.1 cm/sec Ao V2 VTI: 32.9 cm LV V1 VTI: 21.7 cm AV (velocity ratio): 0.66 MICAH(I,D): 2.1 cm2 MICAH(V,D): 2.1 cm2 SV(LVOT): 68.6 ml PA V2 max: 74.7 cm/sec ECHO/Echo Complete W/ Contrast Interpretation Summary The estimated ejection fraction is 60 %. Mild concentric left ventricular hypertrophy. Mild focal aortic valve calcification. Contrast injection used Definity The study was technically difficult. Contrast injection was performed. Ordering Physician: Areli Estevez Referring Physician: Luzma Palencia M.D. Performed By: Kristyn Ley RDCS
[2024-06-07 08:35] LABS: Bedside Glucose 217 mg/dL (74-106)
--- NOTE | 2024-06-07 13:23 | STRESSREP ---
Stress Test Report Pharmacologic/Lexiscan myocardial perfusion stress test. Indication; 78-year-old patient with history of hypertension, hyperlipidemia history of THAIS has frequent cardiac arrhythmia with PACs PVCs and PSVT. Patient evaluated with Lexiscan nuclear stress test. Stress protocol: Resting EKG demonstrates. Normal sinus rhythm. 0.4 mg of regadenoson was infused per usual protocol followed by rapid intravenous saline flush injection continuous EKG monitoring was performed. The maximum heart rate attained was 80 bpm which was 56% of maximum predicted heart . Stress EKG showed[, no significant change from the resting EKG, with maximum heart rate of 80 bpm. Arrhythmia: Infrequent PVCs Symptoms: Patient had no symptoms of chest pain Blood pressure at rest: 132/74 mmHg blood pressure at the end of stress: 132/74 mmHg Myocardial perfusion protocol. 14.7 mCi ]of Technetium 99m Sestamibi was injected at rest. [ 0.4 mg ]of Regadenoson was infused per usual protocol peak infusion 44.7 mCi ]of Technetium 99m sestamibi was injected. Stress images were obtained stress and rest images were reconstructed and compared in the short axis vertical and horizontal long axis. Gated images were also obtained Perfusion SPECT analysis: Small, inferolateral reversible ischemia is noted More prominent inferior attenuation artifact. Gated SPECT analysis: The gated ejection fraction is 70% Normal LV wall motion, with normal LV systolic function Conclusion: Abnormal Lexiscan sestamibi study with small area of inferolateral reversible ischemia LV function is preserved, with normal ejection fraction Inferior attenuation artifact demonstrated Recommendation; Correlate with the clinical presentation. Ray Maradiaga MD,FACC,[facility]
== END | disposition home or self-care (01) ==
PROVIDERS: PCP Internal Medicine; Referring Provider Physician Assistant Medical; Visit Provider Physician Assistant Medical
DX: R07.9 Chest pain, unspecified (principal); R06.09 Other forms of dyspnea; R42 Dizziness and giddiness; R00.1 Bradycardia, unspecified
CPT/HCPCS: 78452; 82962; 93017; 93225; 93226; 93306; A9500; Q9957; A4216; C8929; J2785

== ENCOUNTER 2024-06-08 16:40 | Emergency (ER) | payer MEDICARE, SELFPAY ==
[2024-06-08 16:41] VITALS: BP 163/66; PULSE 64; RESP 18; TEMP 36.5; O2SAT 94
[2024-06-08] MEDS: 0.9% Normal Saline (1000mL) 1,000 ML 999 ML IV (17:09)
[2024-06-08 17:11] VITALS: BMI 46.2
[2024-06-08 17:17] LABS: Bedside Glucose 291 mg/dL (74-106)
[2024-06-08 17:27] LABS: Mucous, Urine 0 SEEN /hpf (<or=2+); Squamous Epithelial Cells - UA 0 SEEN /hpf (5-10)
--- NOTE | 2024-06-08 17:30 | EDS_ITS ---
HPI <ALEN Diamond - Last Filed: 06/08/24 19:35> History of Present Illness Chief Complaint: Hyperglycemia Narrative Narrative: 78-year-old female with past medical history of type 2 diabetes presents with high blood sugars. She states she had a salad and chicken for lunch and laid down for a nap about 2 PM but felt shaky all over like she was hypoglycemic and checked it it was in the 60s. She ate a yogurt and a Gatorade with sugar and now her blood sugars have been trending up most recently to 44 and she was concerned they are going to get too high and she could not manage it at home. She has no other associated symptoms. She takes insulin aspart 3 units plus sliding scale at breakfast, 4 units plus SS at lunch, 5 units plus SS at dinner and then takes Lantus 24 units at bedtime. 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 [facility] <ALEN Diamond - Last Filed: 06/08/24 19:35> [facility] Medical History Hyperglycemia due to type 2 diabetes mellitus THAIS (obstructive sleep apnea) Palpitations Sinus bradycardia Abnormal EKG Essential hypertension Premature atrial contractions Charcot's joint of left foot Asthma GERD (gastroesophageal reflux disease) History of DVT (deep vein thrombosis) Bimalleolar ankle fracture Paroxysmal SVT (supraventricular tachycardia) Premature ventricular contraction Hyperlipidemia Diabetes mellitus, type II Home Medications ?Medication ?Instructions ?Recorded ?Last Taken ?Type aspirin 81 mg tablet,delayed 81 mg PO DAILY heart health 11/24/17 02/06/24 History release ramipril 10 mg capsule 10 mg PO BID HEART 01/19/19 02/06/24 History cholecalciferol (vitamin D3) 1,250 1,250 mcg PO QWEEK SUPPLEMENT 12/03/19 02/05/24 History mcg (50,000 unit) capsule furosemide 20 mg tablet 20 mg PO DAILY PRN water pill 01/22/21 Unknown History budesonide-formoterol HFA 160 2 puff inhalation BID ASTHMA 12/21/21 02/06/24 History mcg-4.5 mcg/actuation aerosol inhaler zolpidem 5 mg tablet 2.5 mg PO QHS PRN Insomnia 02/11/22 Unknown History insulin lispro 100 unit/mL 6 unit subcut TIDCM dm 06/22/22 02/06/24 History subcutaneous solution omeprazole magnesium 20 mg 20 mg PO DAILY GERD 06/22/22 02/06/24 History tablet,delayed release (Prilosec OTC) acetaminophen 325 mg tablet 650 mg (2 x 325 mg) PO Q6H PRN PRN 08/02/22 Unknown Rx (Tylenol) Pain 1-10 Or Fever >100.7 #0 tabs amlodipine 10 mg tablet 5 mg PO DAILY 10/01/23 02/06/24 History metoprolol tartrate 50 mg tablet 25 mg PO Q12H heart rate, BP 10/01/23 02/06/24 History insulin glargine 100 unit/mL (3 20 unit subcut QHS 11/07/23 02/05/24 History mL) subcutaneous pen (Lantus Solostar U-100 Insulin) blood sugar diagnostic (OneTouch 02/06/24 Unknown History Ultra Test strips) sulfamethoxazole 800 1 tab PO BID 7 days #13 tabs 06/08/24 Unknown Rx mg-trimethoprim 160 mg tablet (Bactrim DS) Allergy/AdvReac Type Severity Reaction Status Date / Time hydromorphone Allergy Severe Anaphylaxis Verified 06/08/24 16:41 tramadol Allergy Severe Anaphylaxis Verified 06/08/24 16:41 amiodarone Allergy Intermediate Swelling Verified 06/08/24 16:41 [place] And Derivatives Allergy Intermediate Hives Verified 06/08/24 16:41 morphine Allergy Intermediate confusion Verified 06/08/24 16:41 moxifloxacin Allergy Intermediate Shortness Verified 06/08/24 16:41 of breath nabumetone Allergy Intermediate damaged Verified 06/08/24 16:41 kidney penicillin G Allergy Intermediate TURNS BLUE Verified 06/08/24 16:41 propoxyphene Allergy Intermediate PT UNSURE Verified 06/08/24 16:41 OF REACTION amlodipine Allergy Mild Abd Verified 06/08/24 16:41 cramps/diarrhea desloratadine Allergy Mild headache Verified 06/08/24 16:41 glutamine (From Airborne Allergy Mild Itching Verified 06/08/24 16:41 (ascorbate sodium)) herbal complex no.124 (From Allergy Mild Itching Verified 06/08/24 16:41 Airborne (ascorbate sodium)) hydrocodone (From Advance) Allergy Mild dystonia Verified 06/08/24 16:41 lysine HCl (From Airborne Allergy Mild Itching Verified 06/08/24 16:41 (ascorbate sodium)) multivitamin with minerals Allergy Mild Itching Verified 06/08/24 16:41 (From Airborne (ascorbate sodium)) pravastatin Allergy Unknown unknown Verified 06/08/24 16:41 rosuvastatin (From Crestor) Allergy Unknown myalgias Verified 06/08/24 16:41 simvastatin Allergy Unknown unknown Verified 06/08/24 16:41 escitalopram Allergy Other Verified 06/08/24 16:41 hydrochlorothiazide Allergy Other Verified 06/08/24 16:41 Qadkwal-PJP-DdV Reductase AdvReac Severe myalgias Verified 06/08/24 16:41 Inhibitor (Jpwxvhi-Jak-Zxm Reductase Inhibitor) amoxicillin (From Augmentin) AdvReac Other Verified 06/08/24 16:41 clavulanic acid (From AdvReac Other Verified 06/08/24 16:41 Augmentin) codeine AdvReac Nausea Verified 06/08/24 16:41 naproxen (From Naprosyn) AdvReac Nausea Verified 06/08/24 16:41 oseltamivir (From Tamiflu) AdvReac HALLUCINATI Verified 06/08/24 16:41 ONS Family History Mother Aortic stenosis Presence of permanent cardiac pacemaker Surgical History History of herniorrhaphy Status post ORIF of fracture of ankle History of tonsillectomy History of cholecystectomy Social History household members: spouse Smoking Status: Former smoker alcohol intake: never substance use type: does not use caffeine: Yes Type: coffee Number of servings: 3 ROS <ALEN Diamond - Last Filed: 06/08/24 19:35> ROS ED ROS Narrative Constitutional: Negative for fever, chills, malaise. GI: Negative for abdominal pain, nausea, vomiting. : Negative for dysuria, hematuria or frequency. EXAM <ALEN Diamond - Last Filed: 06/08/24 19:35> Physical Exam Narrative Exam Narrative: CONST: Patient sitting in no acute distress. EYES: Normal inspection. NECK: Normal inspection. RESP: No respiratory distress, CTAB. CVS: Regular rate and rhythm, no murmur, no gallop. ABD: Soft and nontender, no guarding or rebound, nondistended. SKIN: Color normal, no rash, warm, dry, intact. EXTREMITIES: Normal appearance, no pedal edema. NEURO: Alert and answering questions appropriately. PSYCH: Normal affect. Const Vital Signs: 06/08/24 16:41 06/08/24 17:00 06/08/24 19:19 Temperature 97.7 F L 97.7 F L Temperature Source Temporal Pulse Rate 64 64 Respiratory Rate 18 18 Respiratory Effort Normal Non-Labored Respiratory Pattern Normal Blood Pressure 163/66 H 150/85 H Blood Pressure Mean 98 106 Pulse Ox 94 94 Oxygen Delivery Method Room Air <Dr. Reyna Monzon DO - Last Filed: 06/11/24 08:53> Physical Exam Const Vital Signs: 06/08/24 16:41 06/08/24 17:00 06/08/24 19:19 Temperature 97.7 F L 97.7 F L Temperature Source Temporal Pulse Rate 64 64 Respiratory Rate 18 18 Respiratory Effort Normal Non-Labored Respiratory Pattern Normal Blood Pressure 163/66 H 150/85 H Blood Pressure Mean 98 106 Pulse Ox 94 94 Oxygen Delivery Method Room Air MDM <ALEN Diamond - Last Filed: 06/08/24 19:35> [facility] Narrative Medical decision making narrative: History gathered from: Patient and spouse Differential: Hyperglycemia, DKA, infection Patient was evaluated for elevated blood sugars. Seems like when her blood sugar goes low she is eating too much and it goes too high. She has no other acute complaints. Her workup is largely unremarkable. Glucose is 296 with no DKA. Normal electrolytes and creatinine 1.16. UA is consistent with UTI. Due to multiple allergies she was prescribed Bactrim and culture was sent. She was given 1 L of IV fluids blood sugar remains in the 200s but I feel she can be discharged home as she is due to take her nighttime insulin. She should follow her prescribed sliding scale and follow-up with her doctor. She was discharged in stable condition. Lab Data Attestation: I reviewed the patient's lab results. Labs: Laboratory Results - last 24 hr 06/08/24 06/08/24 06/08/24 16:59 17:10 18:04 WBC 7.2 RBC 4.39 Hgb 12.8 Hct 38.8 MCV 88.4 MCH 29.2 MCHC 33.0 RDW Std Deviation 42.1 RDW Coeff of Madalyn 12.9 Plt Count 162 MPV 12.7 H Immature Gran % (Auto) 0.000 Neut % (Auto) 74.2 H Lymph % (Auto) 14.2 L Ralls % (Auto) 7.5 Eos % (Auto) 3.5 Baso % (Auto) 0.6 Absolute Neuts (auto) 5.4 Absolute Lymphs (auto) 1.02 Nucleated RBC % 0 Sodium 136 Potassium 3.8 Chloride 102 Carbon Dioxide 27.0 Anion Gap 7 BUN 23 H Creatinine 1.16 H Estim Creat Clear Calc 60.88 Est GFR (MDRD) Af Amer 58 L Est GFR (MDRD) Non-Af 48 L BUN/Creatinine Ratio 19.8 Glucose 296 H Calcium 8.8 Urine Color Straw Urine Clarity Sl. Cloudy Urine pH 6.0 Ur Specific [place] 1.010 Urine Protein Negative Urine Glucose (UA) Normal Urine Ketones Negative Urine Occult Blood 10 H Urine Nitrite Negative Urine Bilirubin Negative Urine Urobilinogen Normal Ur Leukocyte Esterase 500 H Urine RBC 0-5 SEEN Urine WBC 5-10 SEEN Ur Squamous Epith Cells 0 SEEN Urine Bacteria 1+ Urine Mucus 0 SEEN Acetone Level NEGATIVE POC Glucose 291 H 266 H 06/08/24 19:07 WBC RBC Hgb Hct MCV MCH MCHC RDW Std Deviation RDW Coeff of Madalyn Plt Count MPV Immature Gran % (Auto) Neut % (Auto) Lymph % (Auto) Ralls % (Auto) Eos % (Auto) Baso % (Auto) Absolute Neuts (auto) Absolute Lymphs (auto) Nucleated RBC % Sodium Potassium Chloride Carbon Dioxide Anion Gap BUN Creatinine Estim Creat Clear Calc Est GFR (MDRD) Af Amer Est GFR (MDRD) Non-Af BUN/Creatinine Ratio Glucose Calcium Urine Color Urine Clarity Urine pH Ur Specific [place] Urine Protein Urine Glucose (UA) Urine Ketones Urine Occult Blood Urine Nitrite Urine Bilirubin Urine Urobilinogen Ur Leukocyte Esterase Urine RBC Urine WBC Ur Squamous Epith Cells Urine Bacteria Urine Mucus Acetone Level POC Glucose 274 H <Dr. Reyna Monzon, DO - Last Filed: 06/11/24 08:53> MDM MDM Narrative Medical decision making narrative: History gathered from: Patient and spouse Differential: Hyperglycemia, DKA, infection Patient was evaluated for elevated blood sugars. Seems like when her blood sugar goes low she is eating too much and it goes too high. She has no other acute complaints. Her workup is largely unremarkable. Glucose is 296 with no DKA. Normal electrolytes and creatinine 1.16. UA is consistent with UTI. Due to multiple allergies she was prescribed Bactrim and culture was sent. She was given 1 L of IV fluids blood sugar remains in the 200s but I feel she can be discharged home as she is due to take her nighttime insulin. She should follow her prescribed sliding scale and follow-up with her doctor. She was discharged in stable condition. I have personally performed a face to face assessment of the patient and have reviewed the ABIMBOLA Note. I performed a substantive portion of the visit including all aspects of the following. My dumont findings include: History is patient is a 78-year-old female with history of anxiety, type 2 diabetes mellitus, hypertension and hyperlipidemia presenting for concern of elevated blood sugar at home. Patient does follow with endocrinology. She becomes concerned when she eats that she might eat too much and her blood sugar will get too high. She has had issues with giving herself too much insulin and having low blood pressures as well but her is now helping her with her insulin regimens to prevent that. Patient on exam is well-appearing. Moist mucosal membranes. Alert and oriented. Mentating appropriately. Abdomen soft and nontender. Heart regular rate and rhythm. Lungs clear to auscultation bilaterally. Patient is anxious. Patient is mildly hyperglycemic with a blood sugar of 296 at this time. She does not have laboratory findings consistent with DKA or HH NK. Urinalysis is consistent with urinary tract infection with 1+ bacteria and 5-10 white blood cells with no contamination. It is possible she could have UTI which is causing some mild hyperglycemia. Urine culture will be sent and patient was placed on antibiotics for this. Given her multiple allergies is started on Bactrim. Will continue to follow-up outpatient for her blood sugar management. Given return precautions. Discharged home in stable and improved condition. After receiving IV fluids patient's blood sugar is mildly improved to 66. She will go home and take her regular dose of insulin. Other additions or changes: [None] Lab Data Labs: Laboratory Results - last 24 hr 06/08/24 06/08/24 06/08/24 16:59 17:10 18:04 WBC 7.2 RBC 4.39 Hgb 12.8 Hct 38.8 MCV 88.4 MCH 29.2 MCHC 33.0 RDW Std Deviation 42.1 RDW Coeff of Madalyn 12.9 Plt Count 162 MPV 12.7 H Immature Gran % (Auto) 0.000 Neut % (Auto) 74.2 H Lymph % (Auto) 14.2 L Ralls % (Auto) 7.5 Eos % (Auto) 3.5 Baso % (Auto) 0.6 Absolute Neuts (auto) 5.4 Absolute Lymphs (auto) 1.02 Nucleated RBC % 0 Sodium 136 Potassium 3.8 Chloride 102 Carbon Dioxide 27.0 Anion Gap 7 BUN 23 H Creatinine 1.16 H Estim Creat Clear Calc 60.88 Est GFR (MDRD) Af Amer 58 L Est GFR (MDRD) Non-Af 48 L BUN/Creatinine Ratio 19.8 Glucose 296 H Calcium 8.8 Urine Color Straw Urine Clarity Sl. Cloudy Urine pH 6.0 Ur Specific [place] 1.010 Urine Protein Negative Urine Glucose (UA) Normal Urine Ketones Negative Urine Occult Blood 10 H Urine Nitrite Negative Urine Bilirubin Negative Urine Urobilinogen Normal Ur Leukocyte Esterase 500 H Urine RBC 0-5 SEEN Urine WBC 5-10 SEEN Ur Squamous Epith Cells 0 SEEN Urine Bacteria 1+ Urine Mucus 0 SEEN Acetone Level NEGATIVE POC Glucose 291 H 266 H 06/08/24 19:07 WBC RBC Hgb Hct MCV MCH MCHC RDW Std Deviation RDW Coeff of Madalyn Plt Count MPV Immature Gran % (Auto) Neut % (Auto) Lymph % (Auto) Ralls % (Auto) Eos % (Auto) Baso % (Auto) Absolute Neuts (auto) Absolute Lymphs (auto) Nucleated RBC % Sodium Potassium Chloride Carbon Dioxide Anion Gap BUN Creatinine Estim Creat Clear Calc Est GFR (MDRD) Af Amer Est GFR (MDRD) Non-Af BUN/Creatinine Ratio Glucose Calcium Urine Color Urine Clarity Urine pH Ur Specific [place] Urine Protein Urine Glucose (UA) Urine Ketones Urine Occult Blood Urine Nitrite Urine Bilirubin Urine Urobilinogen Ur Leukocyte Esterase Urine RBC Urine WBC Ur Squamous Epith Cells Urine Bacteria Urine Mucus Acetone Level POC Glucose 274 H Discharge Plan Triage Chief Complaint: Hyperglycemia ED Midlevel Provider: Amber Martino ED Provider: Reyna Monzon Dx/Rx/DC Orders Clinical Impression: Acute UTI, Hyperglycemia due to diabetes mellitus Instructions: UTIs Understanding, Blood Sugar Check Steps Prescriptions: New sulfamethoxazole-trimethoprim [Bactrim DS] 800-160 mg tablet 1 tab PO BID 7 Days Qty: 13 0RF No Action aspirin 81 mg tablet,delayed release (DR/EC) 81 mg PO DAILY Patient Comments: only takes sometimes cholecalciferol (vitamin D3) 1,250 mcg (50,000 unit) capsule 1,250 mcg PO QWEEK furosemide 20 mg tablet 20 mg PO DAILY PRN (Reason: water pill) insulin lispro 100 unit/mL solution 6 unit subcut TIDCM Protocol: 4. Sliding Scale Insulin High-Med Dosing Condition: 150-199 mg/dl = 2 units Condition: 200-259 mg/dl = 4 units Condition: 260-324 mg/dl = 6 units Condition: 325-374 mg/dl = 8 units Condition: 375-409 mg/dl = 10 units Condition: 410-449 mg/dl = 11 units Condition: Greater than 449 call physician Protocol Text: - Use for Total Daily Dose of Insulin 56-80 units - Patient who are insulin resistant or septic HIGH MEDIUM DOSING ALGORITHM Patient Comments: INJECT 3 TO 10 UNITS SUBCUTANEOUSLY BEFORE MEALS DIRECTED budesonide-formoterol 160-4.5 mcg/actuation HFA aerosol inhaler 2 puff inhalation BID omeprazole magnesium [Prilosec OTC] 20 mg tablet,delayed release (DR/EC) 20 mg PO DAILY ramipril 10 MG capsule 10 mg PO BID Patient Comments: TAKE 1 CAPSULE BY MOUTH TWICE DAILY zolpidem 5 mg Tablet 2.5 mg PO QHS PRN (Reason: Insomnia) acetaminophen [Tylenol] 325 mg Tablet 650 mg PO Q6H PRN PRN (Reason: Pain 1-10 Or Fever >100.7) Qty: 0 0RF metoprolol tartrate 50 mg tablet 25 mg PO Q12H Patient Comments: takes half tablet in morning and night amlodipine 10 mg tablet 5 mg PO DAILY Patient Comments: takes half tablet/day (DME) OneTouch Ultra Test Strip MISCELLANEOUS Patient Comments: [NO ORIGINAL SIG] insulin glargine [Lantus Solostar U-100 Insulin] 100 unit/mL (3 mL) insulin pen 20 unit subcut QHS Primary Care Provider: Luzma Palencia Referrals: Luzma Palencia MD [Primary Care Provider] - Activity Restrictions/Additional Instructions: I prescribed an antibiotic for UTI. Take your short acting insulin plus sliding scale before you eat dinner and take your Lantus at bedtime as prescribed. Print Language: Belarusian Disposition Disposition: Home, Self Care Discharge Date/Time: 06/08/24 19:20
[2024-06-08 17:34] LABS: Absolute Lymphocyte Count 1.02 X10^3/uL (0.83-4.51); Absolute Neutrophil Count 5.4 X10^3/uL (2.0-7.7); Basophil# 0.04 X10^3/uL; Basophil% 0.6 % (0-1); Eosinophil# 0.25 X10^3/uL; Eosinophils% 3.5 % (0-5); Hematocrit 38.8 % (37-47); Hemoglobin 12.8 g/dL (12.0-15.0); Lymphocyte # 1.02 X10^3/ul (0.83-4.51); Lymphocyte % 14.2 % (19-41); Mean Corpuscular Hgb 29.2 pg (27.0-32.0); Mean Corpuscular Volume 88.4 fL (81-99); Mean Platelet Vol. 12.7 fl (6.2-12.0); Monocyte# 0.54 X10^3/uL; Monocyte% 7.5 % (0-10); NRBC Flagged by Analyzer 0 % (0-5); Neutrophil # 5.35 X10^3/uL (2.7-7.7); Neutrophil % 74.2 % (47-70); Platelet Count 162 K/mm3 (150-450); RBC Distribution Width CV 12.9 % (11.6-14.6); RBC Distribution Width SD 42.1 fl (35.1-43.9); Red Blood Count 4.39 M/mm3 (4.2-5.4); White Blood Count 7.2 K/mm3 (4.4-11.0)
[2024-06-08 17:38] LABS: Color, Urine Straw (Yellow); Glucose, Dipstick Normal (Normal); Ketone-Dipstick Negative (Negative); Leukocyte Esterase-Dipstick 500 /ul (Negative); Nitrite-Dipstick Negative (Negative); Occult Blood-Urine 10 /ul (Negative); Protein-Dipstick Negative (Negative); Urine Bilirubin Dipstick Negative (Negative); Urine Clarity Sl. Cloudy (Clear); Urine Urobilinogen Normal (Normal)
[2024-06-08 17:50] LABS: Bacteria 1+ /hpf (None Seen); Red Blood Cells-Urine 0-5 SEEN /hpf (0-5); White Blood Cells 5-10 SEEN /hpf (0-5)
[2024-06-08 17:56] LABS: Anion Gap 7 (5-15); BUN 23 mg/dL (7-18); BUN/Creat Ratio 19.8 RATIO (10-20); Calcium,Total 8.8 mg/dL (8.5-10.1); Chloride 102 mmol/L (98-107); Creatinine, Serum 1.16 mg/dL (0.55-1.02); EST Glomerular Filtration Rate 48 mL/min (>60); Est Glom Filt Rate - Afr Amer 58 mL/min (>60); Estimated Creatinine Clearance 60.88 ml/min; Glucose 296 mg/dL (74-106); Potassium 3.8 mmol/L (3.5-5.1); Sodium Level 136 mmol/L (136-145)
[2024-06-08 18:22] LABS: Bedside Glucose 266 mg/dL (74-106)
[2024-06-08] MEDS: Smz/Tmp Ds Tablet 1 TABLET PO (19:08)
[2024-06-08 19:19] VITALS: BP 150/85; PULSE 64; RESP 18; TEMP 36.5; O2SAT 94
[2024-06-08 19:27] LABS: Bedside Glucose 274 mg/dL (74-106)
== END 2024-06-08 19:20 | disposition home or self-care (01) ==
PROVIDERS: Physician Assistant; Emergency Provider Emergency Medicine; PCP Internal Medicine; Visit Provider Emergency Medicine
DX: N39.0 Urinary tract infection, site not specified (principal); E11.65 Type 2 diabetes mellitus with hyperglycemia; G47.33 Obstructive sleep apnea (adult) (pediatric); Z86.718 Personal history of other venous thrombosis and embolism; Z87.891 Personal history of nicotine dependence
CPT/HCPCS: 80048; 81001; 82009; 82962; 85025; 87086; 96360; 96361; 99283; J7030

== ENCOUNTER 2024-07-02 20:02 | Emergency (ER) | payer MEDICARE, SELFPAY ==
[2024-07-02 20:05] VITALS: BP 152/66; PULSE 80; RESP 19; TEMP 36.4; O2SAT 97
--- NOTE | 2024-07-02 21:33 | EKG12_ITS ---
Test Reason : DYSRHYTHMIA Blood Pressure : */* mmHG Vent. Rate : 56 BPM Atrial Rate : 56 BPM P-R Int : 138 ms QRS Dur : 84 ms QT Int : 466 ms P-R-T Axes : 71 39 50 degrees QTcB Int : 449 ms Sinus bradycardia with marked sinus arrhythmia Otherwise normal ECG Confirmed by NAYANA JOSE, KARRI ([id number]), tape editor MAMIE HENDERSON ([id number]) on 07/04/2024 6:36:02 AM Referred By: DANIEL Confirmed By: KARRI KRAUS MD
[2024-07-02 21:59] VITALS: BMI 44.9
--- NOTE | 2024-07-02 22:00 | ED.VIS.CHEST ---
HPI History of Present Illness Chief Complaint: Chest Pain Narrative Narrative: Chief complaint and HPI: Hypertension. 78-year-old female with history of HTN, DM, HLD presents for evaluation of hypertension. Patient states that earlier today she felt flushed around 11 AM. She states she took her blood pressure and it was high. She states this made her anxious and she repetitively kept checking it throughout the day and it remained high. She called her PCP who would like to see her in the office tomorrow. She states that for a couple seconds at home she had a pressure in her chest. She states the pain improved with movement. She states she thinks it was either gas pain or possibly her arthritis. She states she has a lot of arthritis in her neck and occasionally gets pain. Patient states that she took her evening blood pressure medication and then checked her blood pressure. She states the blood pressure was systolic 114. She states that she came for evaluation as she is concerned this is low. She denies chest pain currently. She denies any fever, chills, cough, shortness of breath, abdominal pain, nausea, vomiting. Review of systems: See HPI Medications: As listed on the chart Allergies: As listed on the chart PFSH: Per chart Vital signs: As listed on the chart. Reviewed. Physical exam: Gen: A&O x3, NAD but anxious Head: Normocephalic, atraumatic Eyes: No sclera icterus, conjunctiva clear ENT: Moist mucous membranes Neck: Trachea midline, No JVD full range of motion, CV: RRR, no murmurs, no peripheral edema Resp: Lungs CTA BL, no w/r/c GI: Abd soft, non-distended, non-tender, no r/r/g Musc: Full ROM, no deformity Skin: Warm, dry Neuro: Alert, oriented, grossly intact, sensation intact Psych: Cooperative, appropriate mood and affect [facility] Medical History (Updated 07/03/24 @ 00:[address] Eduardo Paz DO) THAIS (obstructive sleep apnea) Hyperglycemia due to type 2 diabetes mellitus Palpitations Sinus bradycardia Abnormal EKG Essential hypertension Premature atrial contractions Charcot's joint of left foot Asthma GERD (gastroesophageal reflux disease) History of DVT (deep vein thrombosis) Bimalleolar ankle fracture Paroxysmal SVT (supraventricular tachycardia) Premature ventricular contraction Hyperlipidemia Diabetes mellitus, type II Home Medications ?Medication ?Instructions ?Recorded ?Last Taken ?Type aspirin 81 mg tablet,delayed 81 mg PO DAILY heart health 11/24/17 02/06/24 History release ramipril 10 mg capsule 10 mg PO BID HEART 01/19/19 02/06/24 History cholecalciferol (vitamin D3) 1,250 1,250 mcg PO QWEEK SUPPLEMENT 12/03/19 02/05/24 History mcg (50,000 unit) capsule furosemide 20 mg tablet 20 mg PO DAILY PRN water pill 01/22/21 Unknown History budesonide-formoterol HFA 160 2 puff inhalation BID ASTHMA 12/21/21 02/06/24 History mcg-4.5 mcg/actuation aerosol inhaler zolpidem 5 mg tablet 2.5 mg PO QHS PRN Insomnia 02/11/22 Unknown History insulin lispro 100 unit/mL 6 unit subcut TIDCM dm 06/22/22 02/06/24 History subcutaneous solution omeprazole magnesium 20 mg 20 mg PO DAILY GERD 06/22/22 02/06/24 History tablet,delayed release (Prilosec OTC) amlodipine 10 mg tablet 5 mg PO DAILY 10/01/23 02/06/24 History metoprolol tartrate 50 mg tablet 25 mg PO Q12H heart rate, BP 10/01/23 02/06/24 History blood sugar diagnostic (OneTouch 02/06/24 Unknown History Ultra Test strips) benzonatate 100 mg capsule 100 mg PO TID 06/13/24 Unknown History insulin glargine 100 unit/mL (3 20 unit subcut QHS 06/13/24 Unknown History mL) subcutaneous pen (Lantus Solostar U-100 Insulin) mometasone 0.1 % topical cream 1 applic topical QDAY 06/13/24 Unknown History nitrofurantoin 100 mg capsule 100 mg PO BID 06/13/24 Unknown History Allergy/AdvReac Type Severity Reaction Status Date / Time hydromorphone Allergy Severe Anaphylaxis Verified 06/13/24 14:09 tramadol Allergy Severe Anaphylaxis Verified 06/13/24 14:09 amiodarone Allergy Intermediate Swelling Verified 06/13/24 14:09 [place] And Derivatives Allergy Intermediate Hives Verified 06/13/24 14:09 morphine Allergy Intermediate confusion Verified 06/13/24 14:09 moxifloxacin Allergy Intermediate Shortness Verified 06/13/24 14:09 of breath nabumetone Allergy Intermediate damaged Verified 06/13/24 14:09 kidney penicillin G Allergy Intermediate TURNS BLUE Verified 06/13/24 14:09 propoxyphene Allergy Intermediate PT UNSURE Verified 06/13/24 14:09 OF REACTION amlodipine Allergy Mild Abd Verified 06/13/24 14:09 cramps/diarrhea desloratadine Allergy Mild headache Verified 06/13/24 14:09 glutamine (From Airborne Allergy Mild Itching Verified 06/13/24 14:09 (ascorbate sodium)) herbal complex no.124 (From Allergy Mild Itching Verified 06/13/24 14:09 Airborne (ascorbate sodium)) hydrocodone (From [place]) Allergy Mild dystonia Verified 06/13/24 14:09 lysine HCl (From Airborne Allergy Mild Itching Verified 06/13/24 14:09 (ascorbate sodium)) multivitamin with minerals Allergy Mild Itching Verified 06/13/24 14:09 (From Airborne (ascorbate sodium)) pravastatin Allergy Unknown unknown Verified 06/13/24 14:09 rosuvastatin (From Crestor) Allergy Unknown myalgias Verified 06/13/24 14:09 simvastatin Allergy Unknown unknown Verified 06/13/24 14:09 escitalopram Allergy Other Verified 06/13/24 14:09 hydrochlorothiazide Allergy Other Verified 06/13/24 14:09 [id number]-GpP Reductase AdvReac Severe myalgias Verified 06/13/24 14:09 Inhibitor (Ufuf[place]-Jhk-Lzt Reductase Inhibitor) amoxicillin (From Augmentin) AdvReac Other Verified 06/13/24 14:09 clavulanic acid (From AdvReac Other Verified 06/13/24 14:09 Augmentin) codeine AdvReac Nausea Verified 06/13/24 14:09 naproxen (From Naprosyn) AdvReac Nausea Verified 06/13/24 14:09 oseltamivir (From Tamiflu) AdvReac HALLUCINATI Verified 06/13/24 14:09 ONS Family History Mother Aortic stenosis Presence of permanent cardiac pacemaker Surgical History History of herniorrhaphy Status post ORIF of fracture of ankle History of tonsillectomy History of cholecystectomy Social History household members: spouse Smoking Status: Former smoker alcohol intake: never substance use type: does not use caffeine: Yes Type: coffee Number of servings: 3 EXAM Physical Exam Const Vital Signs: 07/02/24 20:05 07/02/24 22:06 07/02/24 22:14 Temperature 97.5 F L Temperature Source Temporal Pulse Rate 80 48 L Respiratory Rate 19 H 15 Respiratory Effort Normal Non-Labored Blood Pressure 152/66 H Blood Pressure Mean 94 Pulse Ox 97 94 Oxygen Delivery Method Room Air 07/02/24 22:15 07/02/24 22:20 07/02/24 22:25 Temperature Temperature Source Pulse Rate 56 L 60 57 L Respiratory Rate 11 L 11 L 12 Respiratory Effort Blood Pressure 133/73 H 148/59 H 132/51 H Blood Pressure Mean 91 82 73 Pulse Ox 93 Oxygen Delivery Method 07/02/24 22:30 07/03/24 00:00 Temperature Temperature Source Pulse Rate 57 L 53 L Respiratory Rate 14 15 Respiratory Effort Blood Pressure 134/63 H 140/61 H Blood Pressure Mean 83 87 Pulse Ox 92 97 Oxygen Delivery Method Room Air MDM MDM MDM Narrative Medical decision making narrative: 78-year-old female with history of HTN, DM, HLD presents for evaluation of hypertension. She states that she had a couple seconds of chest pain earlier today that resolved. She states the pain actually improved with movement. She also endorses improvement in the blood pressure with her nighttime medication. On presentation, patient is anxious. She is mildly hypertensive otherwise vitals are stable. Differential diagnosis includes but is not limited to hypertension urgency, hypertensive emergency, electrolyte abnormality. Suspect less likely ACS. Cardiac workup ordered. EKG and chest x-ray reviewed see below. CBC without leukocytosis or anemia. BMP unremarkable. Troponin unremarkable and flat x 2. On reevaluation, patient is not having any chest pain. Her blood pressure is only mildly hypertensive. I do not think any change in her blood pressure medication is needed at this time. Patient was updated of all results and confirmed understanding. Patient is to follow-up with her PCP tomorrow. She is educated to recheck her blood pressure intermittently at home. Return back to the ED if symptoms change or worsen. She confirmed understanding. Patient stable to discharge home. EKG: Interpreted by me/EM physician: EKG shows sinus bradycardia with sinus arrhythmia. No acute ischemic changes. Heart rate 56. This is similar to her previous EKG Diagnostic: Interpreted by me/EM physician: Chest x-ray without pneumonia, effusion, cardiomegaly, pneumothorax Impression: 1. Hypertension with history of hypertension 2. Chest pain, resolved Lab Data Labs: Laboratory Results - last 24 hr 07/02/24 07/03/24 22:01 00:10 WBC 5.2 RBC 4.37 Hgb 12.7 Hct 38.9 MCV 89.0 MCH 29.1 MCHC 32.6 RDW Std Deviation 41.1 RDW Coeff of Madalyn 12.5 Plt Count 183 MPV 12.2 H Immature Gran % (Auto) 0.200 Neut % (Auto) 60.8 Lymph % (Auto) 25.5 Perkins % (Auto) 9.8 Eos % (Auto) 3.3 Baso % (Auto) 0.4 Absolute Neuts (auto) 3.2 Absolute Lymphs (auto) 1.33 Nucleated RBC % 0 Sodium 137 Potassium 3.7 Chloride 103 Carbon Dioxide 28.0 Anion Gap 6 BUN 19 H Creatinine 0.84 Estim Creat Clear Calc 82.67 Est GFR (MDRD) Af Amer 84 Est GFR (MDRD) Non-Af 70 BUN/Creatinine Ratio 22.7 H Glucose 195 H Calcium 9.4 Troponin I High Sens 15 12 Radiography Diagnostic Testing: Clinical Impression(s) from Imaging Studies Chest X-Ray 07/02/24 22:03 IMPRESSION: 1. No evidence of acute cardiopulmonary process. Electronically Signed: Karl Kimball MD at 23:10 EST , Discharge Plan Triage Chief Complaint: Chest Pain ED Provider: Eduardo Paz Dx/Rx/DC Orders Clinical Impression: Hypertension, Chest pain Instructions: ED Chest Pain, Uncertain Cause, ED Hypertension, Established Prescriptions: No Action aspirin 81 mg tablet,delayed release (DR/EC) 81 mg PO DAILY Patient Comments: only takes sometimes cholecalciferol (vitamin D3) 1,250 mcg (50,000 unit) capsule 1,250 mcg PO QWEEK furosemide 20 mg tablet 20 mg PO DAILY PRN (Reason: water pill) insulin lispro 100 unit/mL solution 6 unit subcut TIDCM Protocol: 4. Sliding Scale Insulin High-Med Dosing Condition: 150-199 mg/dl = 2 units Condition: 200-259 mg/dl = 4 units Condition: 260-324 mg/dl = 6 units Condition: 325-374 mg/dl = 8 units Condition: 375-409 mg/dl = 10 units Condition: 410-449 mg/dl = 11 units Condition: Greater than 449 call physician Protocol Text: - Use for Total Daily Dose of Insulin 56-80 units - Patient who are insulin resistant or septic HIGH MEDIUM DOSING ALGORITHM Patient Comments: INJECT 3 TO 10 UNITS SUBCUTANEOUSLY BEFORE MEALS DIRECTED budesonide-formoterol 160-4.5 mcg/actuation HFA aerosol inhaler 2 puff inhalation BID omeprazole magnesium [Prilosec OTC] 20 mg tablet,delayed release (DR/EC) 20 mg PO DAILY mometasone 0.1 % cream 1 applic topical QDAY benzonatate 100 mg capsule 100 mg PO TID nitrofurantoin 100 mg capsule 100 mg PO BID Rx Instructions: must administer with a meal/food ramipril 10 MG capsule 10 mg PO BID Patient Comments: TAKE 1 CAPSULE BY MOUTH TWICE DAILY zolpidem 5 mg Tablet 2.5 mg PO QHS PRN (Reason: Insomnia) metoprolol tartrate 50 mg tablet 25 mg PO Q12H Patient Comments: takes half tablet in morning and night amlodipine 10 mg tablet 5 mg PO DAILY Patient Comments: takes half tablet/day (DME) OneTouch Ultra Test Strip MISCELLANEOUS Patient Comments: [NO ORIGINAL SIG] insulin glargine [Lantus Solostar U-100 Insulin] 100 unit/mL (3 mL) insulin pen 20 unit subcut QHS Rx Instructions: 20-26u Primary Care Provider: Luzma Palencia Referrals: Luzma Palencia MD [Primary Care Provider] - 3-5 Days Activity Restrictions/Additional Instructions: Follow-up with your primary care physician. Continue to monitor your blood pressure periodically at home. Return back to the ED if symptoms change or worsen Print Language: Upper Sorbian Disposition Disposition: Home, Self Care
--- NOTE | 2024-07-02 22:03 | RAD_ITS ---
INDICATION: chest pain EXAMINATION/TECHNIQUE: X-RAY - XR Chest 1 View COMPARISON: 05/27/2024 FINDINGS: LIFE-SUPPORT AND LINES: 1. None HEART AND VESSELS: The cardiac silhouette, pulmonary vasculature have normal appearance. No evidence of congestive failure. LUNGS AND PLEURAL SPACES: Mild interstitial prominence in the lower lungs accentuated by overlapping soft tissue. No focal infiltrate or consolidation. No pulmonary mass is noted. MEDIASTINUM AND HILAR REGIONS: No masses adenopathy noted. No areas of calcification. Visualized upper airway is normal in position. BONY ELEMENTS: No acute bony changes noted. RAD/Chest 1 View (Portable) IMPRESSION: 1. No evidence of acute cardiopulmonary process. Electronically Signed: Karl Kimball MD at 23:10 EST ,
[2024-07-02 22:10] LABS: Absolute Lymphocyte Count 1.33 X10^3/uL (0.83-4.51); Absolute Neutrophil Count 3.2 X10^3/uL (2.0-7.7); Basophil# 0.02 X10^3/uL; Basophil% 0.4 % (0-1); Eosinophil# 0.17 X10^3/uL; Eosinophils% 3.3 % (0-5); Hematocrit 38.9 % (37-47); Hemoglobin 12.7 g/dL (12.0-15.0); Lymphocyte # 1.33 X10^3/ul (0.83-4.51); Lymphocyte % 25.5 % (19-41); Mean Corp Hgb Conc 32.6 g/dL (32-36); Mean Corpuscular Hgb 29.1 pg (27.0-32.0); Mean Platelet Vol. 12.2 fl (6.2-12.0); Monocyte# 0.51 X10^3/uL; Monocyte% 9.8 % (0-10); NRBC Flagged by Analyzer 0 % (0-5); Neutrophil # 3.17 X10^3/uL (2.7-7.7); Neutrophil % 60.8 % (47-70); Platelet Count 183 K/mm3 (150-450); RBC Distribution Width CV 12.5 % (11.6-14.6); RBC Distribution Width SD 41.1 fl (35.1-43.9); Red Blood Count 4.37 M/mm3 (4.2-5.4); White Blood Count 5.2 K/mm3 (4.4-11.0)
[2024-07-02 22:14] VITALS: PULSE 48; RESP 15; O2SAT 94
[2024-07-02 22:15] VITALS: BP 133/73; PULSE 56; RESP 11
[2024-07-02 22:20] VITALS: BP 148/59; PULSE 60; RESP 11; O2SAT 93
[2024-07-02 22:25] VITALS: BP 132/51; PULSE 57; RESP 12
[2024-07-02 22:30] VITALS: BP 134/63; PULSE 57; RESP 14; O2SAT 92
[2024-07-02 22:32] LABS: Anion Gap 6 (5-15); BUN 19 mg/dL (7-18); BUN/Creat Ratio 22.7 RATIO (10-20); Calcium,Total 9.4 mg/dL (8.5-10.1); Chloride 103 mmol/L (98-107); Creatinine, Serum 0.84 mg/dL (0.55-1.02); EST Glomerular Filtration Rate 70 mL/min (>60); Est Glom Filt Rate - Afr Amer 84 mL/min (>60); Estimated Creatinine Clearance 82.67 ml/min; Glucose 195 mg/dL (74-106); Potassium 3.7 mmol/L (3.5-5.1); Sodium Level 137 mmol/L (136-145); Troponin-I HS (w/2H Reflex) 15 pg/mL (3.0-54.0)
[2024-07-03] VITALS: BP 140/61; PULSE 53; RESP 15; O2SAT 97
[2024-07-03 00:07] LABS: Reflex Troponin-HS? (from REC) Y
[2024-07-03 00:37] LABS: Troponin-I HS 12 pg/mL (3.0-54.0)
[2024-07-03 00:49] VITALS: BP 142/71; PULSE 60; RESP 19; TEMP 36.4; O2SAT 97
== END 2024-07-03 00:49 | disposition home or self-care (01) ==
PROVIDERS: Emergency Provider Surgery; PCP Internal Medicine; Visit Provider Surgery
DX: I10 Essential (primary) hypertension (principal); E11.9 Type 2 diabetes mellitus without complications; R07.9 Chest pain, unspecified; G47.33 Obstructive sleep apnea (adult) (pediatric); Z87.891 Personal history of nicotine dependence; Z86.718 Personal history of other venous thrombosis and embolism
CPT/HCPCS: 71045; 80048; 84484; 85025; 93005; 99284; A4216

== ENCOUNTER 2024-07-28 20:18 | Emergency (ER) | payer MEDICARE, SELFPAY ==
[2024-07-28 20:22] VITALS: BP 160/74; PULSE 59; RESP 18; TEMP 36.3; O2SAT 98
--- NOTE | 2024-07-28 20:34 | EDS_ITS ---
<Statement entered by Lars Dahl DO - 07/29/24 00:12> Patient was seen and examined with physician benefits assistant Amber All components of the history and physical confirmed and agreed. History of present illness and physical exam: Patient is a 70-year-old female with past medical hypertension, hyperlipidemia, type 2 diabetes who presented to the emergency department with a chief complaint of fluctuating blood sugar. Patient states that she woke up around 4 AM and noted that her blood glucose was 51 she states that she ate yogurt to bring this up. States that she had been following her sliding scale. She notes that at lunchtime her sliding scale said take 8 units but she only took 5.5 units because she did not trust it. She states that given that her blood glucose was fluctuating so much and up into the 200s she came very anxious and came here further evaluation management. Patient states that she was very anxious about this and felt that she has palpitations secondary to this as well as some chest pain therefore she came here further evaluation management. She states that she is on Lantus 22 units at night. She states that she sees a nurse practitioner at [facility] endocrinology. Patient states that she is completely asymptomatic this point time. Review of systems: Agree with above Physical exam: Agree with above MDM Patient is a 70-year-old female who presented to the emerged part with a chief complaint of fluctuating blood glucose as well as palpitations. On the differential diagnose includes but not limited to cardiac arrhythmia, hypoglycemia, hypoglycemia, electrolyte abnormality, UTI. Once workup is obtained reviewed she will be reevaluated. Patient CBC reviewed and showed no evidence leukocytosis white blood count norm al at 7.2, hemoglobin stable 13.6, patient sodium noted to be 134, potassium normal 4.6, creatinine was 1.05. Patient's troponin normal at 12. Patient's glucose was noted be 197. Patient's anion gap is normal at 6. Patient's EKG reviewed and independently interpreted by myself which showed sinus bradycardia with a rate of 58 beats per minutes. Patient's urinalysis reviewed and showed no evidence of infection. At this point time to discuss the patient's results with her. Patient would like to go home is feeling back to her baseline she was advised to take her insulin as prescribed and return for worsening symptoms or concerns. She is agreeable this plan all question concerns answered she was discharged home in stable condition. Final impression: History of type 2 diabetes Fluctuating glucose. Disposition: Patient will be discharged home in stable condition Supervising attending attestation: Lars GALLOWAY History of Present Illness Chief Complaint: Anxiety Narrative Narrative: 78-year-old female with past medical history of HTN, HLD, DM2 states her blood sugars have been fluctuating throughout the day. When she woke up around 4 AM it was 51 and she ate yogurt to bring them up. She has been following her sliding scale for aspart before meals. With lunchtime her scale said to take 8 units but she only took 5.5 because she did not trust it. She felt like the insulin she took prior was still working. Since her sugars were fluctuating so much up to the 200s in the evening she became anxious and about an hour ago had transient chest pain and palpitations. She is also on Lantus 22 units at night. She sees a nurse practitioner named Renetta Mcgee at [facility] endocrinology. [facility] Medical History THAIS (obstructive sleep apnea) Hyperglycemia due to type 2 diabetes mellitus Palpitations Sinus bradycardia Abnormal EKG Essential hypertension Premature atrial contractions Charcot's joint of left foot Asthma GERD (gastroesophageal reflux disease) History of DVT (deep vein thrombosis) Bimalleolar ankle fracture Paroxysmal SVT (supraventricular tachycardia) Premature ventricular contraction Hyperlipidemia Diabetes mellitus, type II Home Medications ?Medication ?Instructions ?Recorded ?Last Taken ?Type aspirin 81 mg tablet,delayed 81 mg PO DAILY heart health 11/24/17 02/06/24 History release ramipril 10 mg capsule 10 mg PO BID HEART 01/19/19 02/06/24 History cholecalciferol (vitamin D3) 1,250 1,250 mcg PO QWEEK SUPPLEMENT 12/03/19 History mcg (50,000 unit) capsule furosemide 20 mg tablet 20 mg PO DAILY PRN water pill 01/22/21 Unknown History budesonide-formoterol HFA 160 2 puff inhalation BID ASTHMA 12/21/21 02/06/24 History mcg-4.5 mcg/actuation aerosol inhaler zolpidem 5 mg tablet 2.5 mg PO QHS PRN Insomnia 02/11/22 Unknown History insulin lispro 100 unit/mL 6 unit subcut TIDCM dm 06/22/22 02/06/24 History subcutaneous solution omeprazole magnesium 20 mg 20 mg PO DAILY GERD 06/22/22 02/06/24 History tablet,delayed release (Prilosec OTC) amlodipine 10 mg tablet 5 mg PO DAILY 10/01/23 02/06/24 History metoprolol tartrate 50 mg tablet 25 mg PO Q12H heart rate, BP 10/01/23 02/06/24 History blood sugar diagnostic (OneTouch 02/06/24 Unknown History Ultra Test strips) benzonatate 100 mg capsule 100 mg PO TID 06/13/24 Unknown History insulin glargine 100 unit/mL (3 20 unit subcut QHS 06/13/24 Unknown History mL) subcutaneous pen (Lantus Solostar U-100 Insulin) mometasone 0.1 % topical cream 1 applic topical QDAY 06/13/24 Unknown History nitrofurantoin 100 mg capsule 100 mg PO BID 06/13/24 Unknown History Allergy/AdvReac Type Severity Reaction Status Date / Time hydromorphone Allergy Severe Anaphylaxis Verified 07/28/24 20:22 tramadol Allergy Severe Anaphylaxis Verified 07/28/24 20:22 amiodarone Allergy Intermediate Swelling Verified 07/28/24 20:22 [place] And Derivatives Allergy Intermediate Hives Verified 07/28/24 20:22 morphine Allergy Intermediate confusion Verified 07/28/24 20:22 moxifloxacin Allergy Intermediate Shortness Verified 07/28/24 20:22 of breath nabumetone Allergy Intermediate damaged Verified 07/28/24 20:22 kidney penicillin G Allergy Intermediate TURNS BLUE Verified 07/28/24 20:22 propoxyphene Allergy Intermediate PT UNSURE Verified 07/28/24 20:22 OF REACTION amlodipine Allergy Mild Abd Verified 07/28/24 20:22 cramps/diarrhea desloratadine Allergy Mild headache Verified 07/28/24 20:22 glutamine (From [place] Allergy Mild Itching Verified 07/28/24 20:22 (ascorbate sodium)) herbal complex no.124 (From Allergy Mild Itching Verified 07/28/24 20:22 [place] (ascorbate sodium)) hydrocodone (From [place]) Allergy Mild dystonia Verified 07/28/24 20:22 lysine HCl (From [place] Allergy Mild Itching Verified 07/28/24 20:22 (ascorbate sodium)) multivitamin with minerals Allergy Mild Itching Verified 07/28/24 20:22 (From [place] (ascorbate sodium)) pravastatin Allergy Unknown unknown Verified 07/28/24 20:22 rosuvastatin (From Crestor) Allergy Unknown myalgias Verified 07/28/24 20:22 simvastatin Allergy Unknown unknown Verified 07/28/24 20:22 escitalopram Allergy Other Verified 07/28/24 20:22 hydrochlorothiazide Allergy Other Verified 07/28/24 20:22 Ihbtiid-RIH-QqZ Reductase AdvReac Severe myalgias Verified 07/28/24 20:22 Inhibitor (Feqzckr-Dpv-Bvo Reductase Inhibitor) amoxicillin (From Augmentin) AdvReac Other Verified 07/28/24 20:22 clavulanic acid (From AdvReac Other Verified 07/28/24 20:22 Augmentin) codeine AdvReac Nausea Verified 07/28/24 20:22 naproxen (From Naprosyn) AdvReac Nausea Verified 07/28/24 20:22 oseltamivir (From Tamiflu) AdvReac HALLUCINATI Verified 07/28/24 20:22 ONS Family History Mother Aortic stenosis Presence of permanent cardiac pacemaker Surgical History History of herniorrhaphy Status post ORIF of fracture of ankle History of tonsillectomy History of cholecystectomy Social History household members: spouse Smoking Status: Former smoker alcohol intake: never substance use type: does not use caffeine: Yes Type: coffee Number of servings: 3 ROS ROS ED ROS Narrative Constitutional: Negative for fever, chills, malaise. CVS: Positive for palpitations, chest pain. Respiratory: Negative for shortness of breath, cough. GI: Negative for abdominal pain, nausea, vomiting, diarrhea. : Negative for dysuria. EXAM Physical Exam Narrative Exam Narrative: CONST: Patient sitting in no acute distress. EYES: Normal inspection. NECK: Normal inspection. RESP: No respiratory distress, CTAB. CVS: Regular rate and rhythm, no murmur, no gallop. ABD: Soft and nontender, no guarding or rebound, nondistended. SKIN: Color normal, no rash, warm, dry, intact. EXTREMITIES: Normal appearance, no pedal edema. NEURO: Alert and answering questions appropriately. PSYCH: Anxious. Const Vital Signs: 07/28/24 20:22 Temperature 97.4 F L Temperature Source Temporal Pulse Rate 59 L Respiratory Rate 18 Blood Pressure 160/74 H Blood Pressure Mean 102 Pulse Ox 98 Oxygen Delivery Method Room Air MDM MDM MDM Narrative Medical decision making narrative: History gathered from: Patient and spouse Differential includes but not limited to hypo or hyperglycemia, electrolyte abnormality, cardiac arrhythmia, UTI 78-year-old female with diabetes had labile blood sugars today which made her anxious stating she developed transient chest pain and palpitations. She is supposed to take fast acting insulin on a sliding scale but took a little less than I recommended. She is also on Lantus at night. She appears well and nontoxic and is hemodynamically stable. Her exam is benign. CBC is WNL. BMP shows sodium 134, BUN 19, creatinine 1.05, glucose 197 with normal CO2 and anion gap. EKG is sinus bradycardia at 58 bpm with no ischemic changes and troponin is 12. Lab Data Attestation: I reviewed the patient's lab results. Labs: Laboratory Results - last 24 hr 07/28/24 20:44 WBC 7.2 RBC 4.64 Hgb 13.6 Hct 41.0 MCV 88.4 MCH 29.3 MCHC 33.2 RDW Std Deviation 40.6 RDW Coeff of Madalyn 12.6 Plt Count MPV Not Reportable Immature Gran % (Auto) 0.300 Neut % (Auto) 71.2 H Lymph % (Auto) 15.6 L [place] % (Auto) 7.7 Eos % (Auto) 4.5 Baso % (Auto) 0.7 Absolute Neuts (auto) 5.1 Absolute Lymphs (auto) 1.12 Nucleated RBC % 0 Differential Comment SCANNED Platelet Estimate ADEQUATE Sodium 134 L Potassium 4.6 Chloride 103 Carbon Dioxide 25.0 Anion Gap 6 BUN 19 H Creatinine 1.05 H Estim Creat Clear Calc 66.56 Est GFR (MDRD) Af Amer 65 Est GFR (MDRD) Non-Af 54 L BUN/Creatinine Ratio 18.1 Glucose 197 H Calcium 9.3 Troponin I High Sens 12 EKG Initial EKG: Attestation: I personally reviewed and interpreted this EKG as follows: Interpretation: No Acute Injury Pattern and Sinus Bradycardia Comments: Sinus bradycardia with sinus arrhythmia at 58 bpm Normal intervals, no acute ischemic changes Discharge Plan Triage Chief Complaint: Anxiety ED Midlevel Provider: Amber Martino ED Provider: Lars Dahl Dx/Rx/DC Orders Prescriptions: No Action aspirin 81 mg tablet,delayed release (DR/EC) 81 mg PO DAILY Patient Comments: only takes sometimes cholecalciferol (vitamin D3) 1,250 mcg (50,000 unit) capsule 1,250 mcg PO QWEEK furosemide 20 mg tablet 20 mg PO DAILY PRN (Reason: water pill) insulin lispro 100 unit/mL solution 6 unit subcut TIDCM Protocol: 4. Sliding Scale Insulin High-Med Dosing Condition: 150-199 mg/dl = 2 units Condition: 200-259 mg/dl = 4 units Condition: 260-324 mg/dl = 6 units Condition: 325-374 mg/dl = 8 units Condition: 375-409 mg/dl = 10 units Condition: 410-449 mg/dl = 11 units Condition: Greater than 449 call physician Protocol Text: - Use for Total Daily Dose of Insulin 56-80 units - Patient who are insulin resistant or septic HIGH MEDIUM DOSING ALGORITHM Patient Comments: INJECT 3 TO 10 UNITS SUBCUTANEOUSLY BEFORE MEALS DIRECTED budesonide-formoterol 160-4.5 mcg/actuation HFA aerosol inhaler 2 puff inhalation BID omeprazole magnesium [Prilosec OTC] 20 mg tablet,delayed release (DR/EC) 20 mg PO DAILY mometasone 0.1 % cream 1 applic topical QDAY benzonatate 100 mg capsule 100 mg PO TID nitrofurantoin 100 mg capsule 100 mg PO BID Rx Instructions: must administer with a meal/food ramipril 10 MG capsule 10 mg PO BID Patient Comments: TAKE 1 CAPSULE BY MOUTH TWICE DAILY zolpidem 5 mg Tablet 2.5 mg PO QHS PRN (Reason: Insomnia) metoprolol tartrate 50 mg tablet 25 mg PO Q12H Patient Comments: takes half tablet in morning and night amlodipine 10 mg tablet 5 mg PO DAILY Patient Comments: takes half tablet/day (DME) [employer] Ultra Test Strip
[2024-07-28 20:36] VITALS: BMI 45.3
--- NOTE | 2024-07-28 20:39 | EKG12_ITS ---
Test Reason : DYSRHYTHMIA Blood Pressure : */* mmHG Vent. Rate : 58 BPM Atrial Rate : 58 BPM P-R Int : 146 ms QRS Dur : 88 ms QT Int : 466 ms P-R-T Axes : 68 17 41 degrees QTcB Int : 457 ms Sinus bradycardia with sinus arrhythmia Otherwise normal ECG Confirmed by NAYANA JOSE, KARRI ([id number]), newspaper copy editor RHONDA BRADFORD ([id number]) on 07/30/2024 1:59:51 PM Referred By: Confirmed By: KARRI KRAUS MD
[2024-07-28 20:51] LABS: Absolute Lymphocyte Count 1.12 X10^3/uL (0.83-4.51); Absolute Neutrophil Count 5.1 X10^3/uL (2.0-7.7); Basophil# 0.05 X10^3/uL; Basophil% 0.7 % (0-1); Eosinophil# 0.32 X10^3/uL; Eosinophils% 4.5 % (0-5); Hemoglobin 13.6 g/dL (12.0-15.0); Lymphocyte # 1.12 X10^3/ul (0.83-4.51); Lymphocyte % 15.6 % (19-41); Mean Corp Hgb Conc 33.2 g/dL (32-36); Mean Corpuscular Hgb 29.3 pg (27.0-32.0); Mean Corpuscular Volume 88.4 fL (81-99); Monocyte# 0.55 X10^3/uL; Monocyte% 7.7 % (0-10); NRBC Flagged by Analyzer 0 % (0-5); Neutrophil % 71.2 % (47-70); POSITIVE COUNT YES; RBC Distribution Width CV 12.6 % (11.6-14.6); RBC Distribution Width SD 40.6 fl (35.1-43.9); Red Blood Count 4.64 M/mm3 (4.2-5.4); White Blood Count 7.2 K/mm3 (4.4-11.0)
[2024-07-28 21:34] LABS: Differential Indicated SCAN CRITERIA MET
[2024-07-28 21:35] LABS: Differential Comment SCANNED; Platelet Estimate ADEQUATE (ADEQ)
[2024-07-28 21:41] LABS: Anion Gap 6 (5-15); BUN 19 mg/dL (7-18); BUN/Creat Ratio 18.1 RATIO (10-20); Calcium,Total 9.3 mg/dL (8.5-10.1); Chloride 103 mmol/L (98-107); Creatinine, Serum 1.05 mg/dL (0.55-1.02); EST Glomerular Filtration Rate 54 mL/min (>60); Est Glom Filt Rate - Afr Amer 65 mL/min (>60); Estimated Creatinine Clearance 66.56 ml/min; Glucose 197 mg/dL (74-106); Potassium 4.6 mmol/L (3.5-5.1); Sodium Level 134 mmol/L (136-145); Troponin-I HS 12 pg/mL (3.0-54.0)
[2024-07-28 21:53] LABS: Bacteria 0 SEEN /hpf (None Seen); Color, Urine Yellow (Yellow); Glucose, Dipstick Normal (Normal); Ketone-Dipstick 5 mg/dl (Negative); Leukocyte Esterase-Dipstick 100 /ul (Negative); Mucous, Urine 0 SEEN /hpf (<or=2+); Nitrite-Dipstick Negative (Negative); Occult Blood-Urine Negative /ul (Negative); Protein-Dipstick Negative (Negative); Red Blood Cells-Urine 0 SEEN /hpf (0-5); Squamous Epithelial Cells - UA 0 SEEN /hpf (5-10); Urine Bilirubin Dipstick Negative (Negative); Urine Clarity Clear (Clear); Urine Urobilinogen Normal (Normal); Urine pH 6.5 (5.0 - 8.0)
[2024-07-28 22:16] LABS: White Blood Cells 0-5 SEEN /hpf (0-5)
[2024-07-28 22:41] VITALS: BP 160/74; PULSE 59; RESP 18; TEMP 36.3; O2SAT 98
== END 2024-07-28 22:42 | disposition home or self-care (01) ==
PROVIDERS: Physician Assistant; Emergency Provider Emergency Medicine; PCP Internal Medicine; Visit Provider Emergency Medicine
DX: E11.9 Type 2 diabetes mellitus without complications (principal); Z79.4 Long term (current) use of insulin; I10 Essential (primary) hypertension; E78.5 Hyperlipidemia, unspecified; F41.9 Anxiety disorder, unspecified; Z79.82 Long term (current) use of aspirin; Z79.899 Other long term (current) drug therapy; Z87.891 Personal history of nicotine dependence
CPT/HCPCS: 80048; 81001; 84484; 85025; 93005; 99282

== ENCOUNTER 2024-09-20 17:48 | Emergency (ER) | payer MEDICARE, SELFPAY ==
[2024-09-20 17:49] VITALS: BP 140/68; PULSE 74; RESP 14; TEMP 36.8; O2SAT 98
[2024-09-20 19:31] LABS: Bedside Glucose 128 mg/dL (74-106)
[2024-09-20] MEDS: Metoclopramide 10 MG/2 ML Vial IV (19:59)
[2024-09-20] MEDS: 0.9% Normal Saline (1000mL) 1,000 ML 999 ML IV (19:59)
--- NOTE | 2024-09-20 20:24 | CT_ITS ---
PROCEDURE: ABDOMEN/PELVIS W IV CONT ONLY REASON FOR EXAM: Nausea vomiting and diarrhea. Abdominal pain. TECHNIQUE: Abdomen and pelvis CT with intravenous contrast. No oral contrast. IV CONTRAST: 96 cc of Isovue 370. COMPARISON: None. FINDINGS: Lung bases: Clear Liver: Unremarkable. Gallbladder: Gallbladder is not visualized likely surgically absent. Spleen: Unremarkable. Pancreas: Atrophic Adrenals: Unremarkable. Kidneys: Unremarkable. Bladder: Unremarkable. Reproductive Organs: Tiny calcification along the anterior urinary bladder wall, may represent a small calcified fibroid. Bowel: Evaluation of the bowel loops are limited due to lack of oral contrast. The stomach is unremarkable. Fluid-filled prominent loops of small and large bowel, no wall thickening or adjacent stranding is demonstrated. Appendix: Normal. Lymph nodes: No suspicious lymph node enlargement. Vasculature: Mild diffuse atherosclerotic calcifications are noted. Peritoneum / Retroperitoneum: No ascites. No free air. Bones: Degenerative changes of the spine. CT/Abdomen/Pelvis W IV Cont ONLY IMPRESSION: Fluid-filled prominent loops of small and large bowel, no wall thickening or ad jacent stranding is demonstrated. Differentials would include ileus versus enteritis. Please see other nonacute findings as described above. One or more dose reduction techniques were used (e.g., Automated exposure contr ol, adjustment of the mA and/or kV according to patient size, use of iterative reconstruction technique). [facility]
[2024-09-20 20:25] LABS: Bacteria 0 SEEN /hpf (None Seen); Mucous, Urine 0 SEEN /hpf (<or=2+)
[2024-09-20 20:27] LABS: Absolute Lymphocyte Count 0.35 X10^3/uL (0.83-4.51); Absolute Neutrophil Count 8.5 X10^3/uL (2.0-7.7); Basophil# 0.02 X10^3/uL; Basophil% 0.2 % (0-1); Eosinophil# 0.11 X10^3/uL; Eosinophils% 1.2 % (0-5); Hematocrit 41.4 % (37-47); Hemoglobin 13.8 g/dL (12.0-15.0); Lymphocyte # 0.35 X10^3/ul (0.83-4.51); Lymphocyte % 3.7 % (19-41); Mean Corp Hgb Conc 33.3 g/dL (32-36); Mean Corpuscular Hgb 29.8 pg (27.0-32.0); Mean Corpuscular Volume 89.4 fL (81-99); Mean Platelet Vol. 12.6 fl (6.2-12.0); Monocyte# 0.42 X10^3/uL; Monocyte% 4.5 % (0-10); NRBC Flagged by Analyzer 0 % (0-5); Neutrophil # 8.45 X10^3/uL (2.7-7.7); Neutrophil % 90.2 % (47-70); POSITIVE DIFFERENTIAL YES; Platelet Count 188 K/mm3 (150-450); RBC Distribution Width CV 12.8 % (11.6-14.6); RBC Distribution Width SD 41.9 fl (35.1-43.9); Red Blood Count 4.63 M/mm3 (4.2-5.4); White Blood Count 9.4 K/mm3 (4.4-11.0)
[2024-09-20 20:29] LABS: Color, Urine Yellow (Yellow); Glucose, Dipstick Normal (Normal); Ketone-Dipstick 5 mg/dl (Negative); Leukocyte Esterase-Dipstick 500 /ul (Negative); Nitrite-Dipstick Negative (Negative); Occult Blood-Urine Negative /ul (Negative); Protein-Dipstick 30 mg/dl (Negative); Specific Gravity, Urine 1.025 (1.002-1.030); Urine Clarity Sl. Cloudy (Clear); Urine Urobilinogen Normal (Normal)
[2024-09-20 20:33] LABS: Urine Bilirubin Dipstick 1 mg/dL (Negative)
[2024-09-20 20:36] LABS: Amorphous Sediment 1+ URATE; Red Blood Cells-Urine 0 SEEN /hpf (0-5); Squamous Epithelial Cells - UA 0-5 SEEN /hpf (5-10); White Blood Cells 25-50 SEEN /hpf (0-5)
--- NOTE | 2024-09-20 20:45 | EDS_ITS ---
HPI History of Present Illness Chief Complaint: General Illness Narrative Narrative: Patient is a 79-year-old female past medical history of THAIS, hypertension, asthma, GERD, type 2 diabetes who presents to the emerged part with chief complaint of of abdominal pain constipation and diarrhea. Patient states that she does have a history of diabetes and is recently started a new diet and has been constipated for the last few days. She states that today she took MiraLAX and noted that she had several episodes of diarrhea. She states that she was concerned that something may be going on prompting her to come here for the valuation management. Patient denies any sick contacts. [facility] Medical History THAIS (obstructive sleep apnea) Hyperglycemia due to type 2 diabetes mellitus Palpitations Sinus bradycardia Abnormal EKG Essential hypertension Premature atrial contractions Charcot's joint of left foot Asthma GERD (gastroesophageal reflux disease) History of DVT (deep vein thrombosis) Bimalleolar ankle fracture Paroxysmal SVT (supraventricular tachycardia) Premature ventricular contraction Hyperlipidemia Diabetes mellitus, type II Home Medications ?Medication ?Instructions ?Recorded ?Last Taken ?Type aspirin 81 mg tablet,delayed 81 mg PO DAILY heart heal th 11/24/17 02/06/24 History release ramipril 10 mg capsule 10 mg PO BID HEART 01/19/19 02/06/24 History cholecalciferol (vitamin D3) 1,250 1,250 mcg PO QWEEK SUPPLEMENT 12/03/19 02/05/24 History mcg (50,000 unit) capsule furosemide 20 mg tablet 20 mg PO DAILY PRN water pil l 01/22/21 Unknown History budesonide-formoterol HFA 160 2 puff inhalation BID THMA 12/21/21 02/06/24 History mcg-4.5 mcg/actuation aerosol inhaler zolpidem 5 mg tablet 2.5 mg PO QHS PRN Insomnia 0 02/11/22 Unknown History insulin lispro 100 unit/mL 6 unit subcut TIDCM dm 01/0602/06/24 History subcutaneous solution omeprazole magnesium 20 mg 20 mg PO DAILY GERD 2 02/06/24 History tablet,delayed release (Prilosec OTC) amlodipine 10 mg tablet 5 mg PO DAILY 10/01/2302/05 History metoprolol tartrate 50 mg tablet 25 mg PO Q12H heart r ate, BP 10/01/23 02/06/24 History blood sugar diagnostic (OneTouch 02/06/24 Unknown His tory Ultra Test strips) benzonatate 100 mg capsule 100 mg PO TID 06/13/24 Unkn own History insulin glargine 100 unit/mL (3 20 unit subcut QHS Unknown History mL) subcutaneous pen (Lantus Solostar U-100 Insulin) mometasone 0.1 % topical cream 1 applic topical QDAY 1 08/13/23 Unknown History nitrofurantoin 100 mg capsule 100 mg PO BID 06/13/24 U nknown History Allergy/AdvReac Type Severity Reaction Status Date / Time hydromorphone Allergy Severe Anaphylaxis Verified 09/20/24 17:49 tramadol Allergy Severe Anaphylaxis Verified 09/20/24 17:49 amiodarone Allergy Intermediate Swelling Verified 09/20/24 17:49 [place] And Derivatives Allergy Intermediate Hives Verified 09/20/24 17:49 morphine Allergy Intermediate confusion Verified 09/20/24 17:49 moxifloxacin Allergy Intermediate Shortness Verified 09/20/24 17:49 of breath nabumetone Allergy Intermediate damaged Verified 09/20/24 17:49 kidney penicillin G Allergy Intermediate TURNS BLUE Verified 09/20/24 17:49 propoxyphene Allergy Intermediate PT UNSURE Verified 09/20/24 17:49 OF REACTION amlodipine Allergy Mild Abd Verified 09/20/24 17:49 cramps/diarrhea desloratadine Allergy Mild headache Verified 09/20/24 17:49 glutamine (From Air[place] Allergy Mild Itching Verified 09/20/24 17:49 (ascorbate sodium)) herbal complex no.124 (From Allergy Mild Itching Verified 09/20/24 17:49 [place] (ascorbate sodium)) hydrocodone (From [place]) Allergy Mild dystonia Verified 09/20/24 17:49 lysine HCl (From Airborne Allergy Mild Itching Verified 09/20/24 17:49 (ascorbate sodium)) multivitamin with minerals Allergy Mild Itching Verified 09/20/24 17:49 (From [place] (ascorbate sodium)) pravastatin Allergy Unknown unknown Verified 09/20/24 17:49 rosuvastatin (From Crestor) Allergy Unknown myalgias Verified 09/20/24 17:49 simvastatin Allergy Unknown unknown Verified 09/20/24 17:49 escitalopram Allergy Other Verified 09/20/24 17:49
--- NOTE | 2024-09-20 20:45 | EX.ED.DYSGE1 ---
HPI History of Present Illness Chief Complaint: General Illness Narrative Narrative: Patient is a 79-year-old female past medical history of THAIS, hypertension, asthma, GERD, type 2 diabetes who presents to the emerged part with chief complaint of of abdominal pain constipation and diarrhea. Patient states that she does have a history of diabetes and is recently started a new diet and has been constipated for the last few days. She states that today she took MiraLAX and noted that she had several episodes of diarrhea. She states that she was concerned that something may be going on prompting her to come here for the valuation management. Patient denies any sick contacts. [facility] Medical History THAIS (obstructive sleep apnea) Hyperglycemia due to type 2 diabetes mellitus Palpitations Sinus bradycardia Abnormal EKG Essential hypertension Premature atrial contractions Charcot's joint of left foot Asthma GERD (gastroesophageal reflux disease) History of DVT (deep vein thrombosis) Bimalleolar ankle fracture Paroxysmal SVT (supraventricular tachycardia) Premature ventricular contraction Hyperlipidemia Diabetes mellitus, type II Home Medications ?Medication ?Instructions ?Recorded ?Last Taken ?Type aspirin 81 mg tablet,delayed 81 mg PO DAILY heart health 11/24/17 02/06/24 History release ramipril 10 mg capsule 10 mg PO BID HEART 01/19/19 02/06/24 History cholecalciferol (vitamin D3) 1,250 1,250 mcg PO QWEEK SUPPLEMENT 12/03/19 02/05/24 History mcg (50,000 unit) capsule furosemide 20 mg tablet 20 mg PO DAILY PRN water pill 01/22/21 Unknown History budesonide-formoterol HFA 160 2 puff inhalation BID ASTHMA 12/21/21 02/06/24 History mcg-4.5 mcg/actuation aerosol inhaler zolpidem 5 mg tablet 2.5 mg PO QHS PRN Insomnia 02/11/22 Unknown History insulin lispro 100 unit/mL 6 unit subcut TIDCM dm 06/22/22 02/06/24 History subcutaneous solution omeprazole magnesium 20 mg 20 mg PO DAILY GERD 06/22/22 02/06/24 History tablet,delayed release (Prilosec OTC) amlodipine 10 mg tablet 5 mg PO DAILY 10/01/23 02/06/24 History metoprolol tartrate 50 mg tablet 25 mg PO Q12H heart rate, BP 10/01/23 02/06/24 History blood sugar diagnostic (OneTouch 02/06/24 Unknown History Ultra Test strips) benzonatate 100 mg capsule 100 mg PO TID 06/13/24 Unknown History insulin glargine 100 unit/mL (3 20 unit subcut QHS 06/13/24 Unknown History mL) subcutaneous pen (Lantus Solostar U-100 Insulin) mometasone 0.1 % topical cream 1 applic topical QDAY 06/13/24 Unknown History nitrofurantoin 100 mg capsule 100 mg PO BID 06/13/24 Unknown History Allergy/AdvReac Type Severity Reaction Status Date / Time hydromorphone Allergy Severe Anaphylaxis Verified 09/20/24 17:49 tramadol Allergy Severe Anaphylaxis Verified 09/20/24 17:49 amiodarone Allergy Intermediate Swelling Verified 09/20/24 17:49 Blanco And Derivatives Allergy Intermediate Hives Verified 09/20/24 17:49 morphine Allergy Intermediate confusion Verified 09/20/24 17:49 moxifloxacin Allergy Intermediate Shortness Verified 09/20/24 17:49 of breath nabumetone Allergy Intermediate damaged Verified 09/20/24 17:49 kidney penicillin G Allergy Intermediate TURNS BLUE Verified 09/20/24 17:49 propoxyphene Allergy Intermediate PT UNSURE Verified 09/20/24 17:49 OF REACTION amlodipine Allergy Mild Abd Verified 09/20/24 17:49 cramps/diarrhea desloratadine Allergy Mild headache Verified 09/20/24 17:49 glutamine (From Airborne Allergy Mild Itching Verified 09/20/24 17:49 (ascorbate sodium)) herbal complex no.124 (From Allergy Mild Itching Verified 09/20/24 17:49 Airborne (ascorbate sodium)) hydrocodone (From [place]) Allergy Mild dystonia Verified 09/20/24 17:49 lysine HCl (From Airborne Allergy Mild Itching Verified 09/20/24 17:49 (ascorbate sodium)) multivitamin with minerals Allergy Mild Itching Verified 09/20/24 17:49 (From Airborne (ascorbate sodium)) pravastatin Allergy Unknown unknown Verified 09/20/24 17:49 rosuvastatin (From Crestor) Allergy Unknown myalgias Verified 09/20/24 17:49 simvastatin Allergy Unknown unknown Verified 09/20/24 17:49 escitalopram Allergy Other Verified 09/20/24 17:49 hydrochlorothiazide Allergy Other Verified 09/20/24 17:49 Zorhvlh-XQW-IdV Reductase AdvReac Severe myalgias Verified 09/20/24 17:49 Inhibitor (Uebruxv-Zfn-Dtg Reductase Inhibitor) amoxicillin (From Augmentin) AdvReac Other Verified 09/20/24 17:49 clavulanic acid (From AdvReac Other Verified 09/20/24 17:49 Augmentin) codeine AdvReac Nausea Verified 09/20/24 17:49 naproxen (From Naprosyn) AdvReac Nausea Verified 09/20/24 17:49 oseltamivir (From Tamiflu) AdvReac HALLUCINATI Verified 09/20/24 17:49 ONS Family History Mother Aortic stenosis Presence of permanent cardiac pacemaker Surgical History History of herniorrhaphy Status post ORIF of fracture of ankle History of tonsillectomy History of cholecystectomy Social History household members: spouse Smoking Status: Former smoker alcohol intake: never substance use type: does not use caffeine: Yes Type: coffee Number of servings: 3 ROS ROS ED ROS Narrative Constitutional: Denies fevers, chills, headaches, lightness, dizziness Eyes: Denies change in vision double vision blurry vision Cardiovascular: Denies chest pain or palpitations Respiratory: Denies coughing wheezing shortness of breath Abdomen: Complains of constipation and diarrhea as well as abdominal pain as noted above : Denies urinary symptoms Neurological: Denies numbness, weakness, tingling Musculoskeletal: Denies back pain Skin: Denies rashes or lesions EXAM Physical Exam Narrative Exam Narrative: General: Patient lying in bed rest comfortably did not appear to be acute distress Head: Atraumatic, normocephalic Eyes: PERRL bilateral, EOMI bilateral, no conjunctival injection noted Neck: Soft, supple, trachea midline Cardiovascular: Regular rate and rhythm no murmurs gallops rubs are noted Respiratory: Clear to auscultation bilaterally no rales rhonchi or wheezes noted Abdomen: Soft, nondistended, diffuse tenderness palpation no rebound or guarding on exam Extremities: +5/5 strength noted in the bilateral per lower extremity, radial pulses +2/4 in the bilateral extremities, no pedal edema on exam Neurological: Patient follow commands though she was at [facility] year is 2024 Skin: Warm, dry, intact no rashes or lesions noted Const Vital Signs: 09/20/24 17:49 09/20/24 19:04 09/20/24 21:01 Temperature 98.2 F 97.5 F L Temperature Source Oral Oral Pulse Rate 74 74 Respiratory Rate 14 19 H Respiratory Effort Normal Non-Labored Respiratory Pattern Normal Blood Pressure 140/68 H 128/54 H Blood Pressure Mean 92 78 Pulse Ox 98 95 Oxygen Delivery Method Room Air Room Air MDM MDM MDM Narrative Medical decision making narrative: Patient is a 79-year-old female who presented to the emerged part with a chief complaint of constipation, diarrhea, abdominal pain and concern for blood glucose being elevated. On the differential diagnose includes but limited to pancreatitis, appendicitis, bowel obstruction, UTI. Once workup is obtained reviewed she will be reevaluated. Patient's CBC was reviewed showed no evidence leukocytosis white blood count noted be 9.4, he was 13.8, platelet count was noted be 188. Patient sodium was noted 130, potassium normal 4.1, creatinine was 0.86. Patient's AST and ALT are 22 and 17 respectively with a normal total bilirubin of 1.02. Patient lipase was noted be 12, urinalysis showed 500 leukocyte esterase 25-50 white cells with no bacteria she does not have any urinary symptoms this will be sent for culture. Patient CT abdomen pelvis with IV contrast showed fluid-filled prominent loops of small and large bowel no wall thickening or adjacent stranding is demonstrated. Differentials would include ileus versus enteritis. Patient was given oral challenge here in the emergency department and she tolerated this well without any vomiting. She was advised to continue supportive care with plenty of fluid hydration. She was advised to follow-up with her doctor in outpatient setting and return with worsening symptoms or any other concerns. She is agreeable this plan all question concerns answered she was discharged home in stable condition. Lab Data Labs: Laboratory Results - last 24 hr 09/20/24 09/20/24 19:10 20:01 WBC 9.4 RBC 4.63 Hgb 13.8 Hct 41.4 MCV 89.4 MCH 29.8 MCHC 33.3 RDW Std Deviation 41.9 RDW Coeff of Madalyn 12.8 Plt Count 188 MPV 12.6 H Immature Gran % (Auto) 0.200 Neut % (Auto) 90.2 H Lymph % (Auto) 3.7 L [place] % (Auto) 4.5 Eos % (Auto) 1.2 Baso % (Auto) 0.2 Absolute Neuts (auto) 8.5 H Absolute Lymphs (auto) 0.35 L Nucleated RBC % 0 Sodium 138 Potassium 4.1 Chloride 101 Carbon Dioxide 22.7 Anion Gap 14 BUN 28 H Creatinine 0.86 Est GFR (MDRD) Non-Af 69 BUN/Creatinine Ratio 32.4 H Glucose 153 H Calcium 9.1 Total Bilirubin 1.02 AST 22 ALT 17 Alkaline Phosphatase 78 Total Protein 6.7 Albumin 3.9 Globulin 2.9 Albumin/Globulin Ratio 1.3 Lipase 12 L Urine Color Yellow Urine Clarity Sl. Cloudy Urine pH 6.0 Ur Specific [place] 1.025 Urine Protein 30 H Urine Glucose (UA) Normal Urine Ketones 5 H Urine Occult Blood Negative Urine Nitrite Negative Urine Bilirubin 1 H Urine Urobilinogen Normal Ur Leukocyte Esterase 500 H Urine RBC 0 SEEN Urine WBC 25-50 SEEN Ur Squamous Epith Cells 0-5 SEEN Amorphous Sediment 1+ URATE Urine Bacteria 0 SEEN Urine Mucus 0 SEEN POC Glucose 128 H Radiography Diagnostic Testing: Clinical Impression(s) from Imaging Studies Abdomen/Pelvis CT 09/20/24 20:24 IMPRESSION: Fluid-filled prominent loops of small and large bowel, no wall thickening or adjacent stranding is demonstrated. Differentials would include ileus versus enteritis. Please see other nonacute findings as described above. One or more dose reduction techniques were used (e.g., Automated exposure control, adjustment of the mA and/or kV according to patient size, use of iterative reconstruction technique). Reading Location: [facility] Discharge Plan Triage Chief Complaint: General Illness ED Provider: Lars Dahl Dx/Rx/DC Orders Clinical Impression: Diarrhea, Enteritis Prescriptions: No Action aspirin 81 mg tablet,delayed release (DR/EC) 81 mg PO DAILY Patient Comments: only takes sometimes cholecalciferol (vitamin D3) 1,250 mcg (50,000 unit) capsule 1,250 mcg PO QWEEK furosemide 20 mg tablet 20 mg PO DAILY PRN (Reason: water pill) insulin lispro 100 unit/mL solution 6 unit subcut TIDCM Protocol: 4. Sliding Scale Insulin High-Med Dosing Condition: 150-199 mg/dl = 2 units Condition: 200-259 mg/dl = 4 units Condition: 260-324 mg/dl = 6 units Condition: 325-374 mg/dl = 8 units Condition: 375-409 mg/dl = 10 units Condition: 410-449 mg/dl = 11 units Condition: Greater than 449 call physician Protocol Text: - Use for Total Daily Dose of Insulin 56-80 units - Patient who are insulin resistant or septic HIGH MEDIUM DOSING ALGORITHM Patient Comments: INJECT 3 TO 10 UNITS SUBCUTANEOUSLY BEFORE MEALS DIRECTED budesonide-formoterol 160-4.5 mcg/actuation HFA aerosol inhaler 2 puff inhalation BID omeprazole magnesium [Prilosec OTC] 20 mg tablet,delayed release (DR/EC) 20 mg PO DAILY mometasone 0.1 % cream 1 applic topical QDAY benzonatate 100 mg capsule 100 mg PO TID nitrofurantoin 100 mg capsule 100 mg PO BID Rx Instructions: must administer with a meal/food ramipril 10 MG capsule 10 mg PO BID Patient Comments: TAKE 1 CAPSULE BY MOUTH TWICE DAILY zolpidem 5 mg Tablet 2.5 mg PO QHS PRN (Reason: Insomnia) metoprolol tartrate 50 mg tablet 25 mg PO Q12H Patient Comments: takes half tablet in morning and night amlodipine 10 mg tablet 5 mg PO DAILY Patient Comments: takes half tablet/day (DME) OneTouch Ultra Test Strip MISCELLANEOUS Patient Comments: [NO ORIGINAL SIG] insulin glargine [Lantus Solostar U-100 Insulin] 100 unit/mL (3 mL) insulin pen 20 unit subcut QHS Rx Instructions: 20-26u Primary Care Provider: Luzma Palencia Referrals: Luzma Palencia MD [Primary Care Provider] - Activity Restrictions/Additional Instructions: Follow-up with your doctor in outpatient setting. Return with worsening symptoms or any concerns. Your CT scan did not show anything surgical going on. Blood work was largely normal. Return with worsening symptoms or other concerns. Follow-up on urine culture with your primary care physician Print Language: Thai Disposition Disposition: Home, Self Care
[2024-09-20 20:59] LABS: ALB/GLOB Ratio 1.3 RATIO (0.9-2.4); AST(SGOT) 22 U/L (<=31); Alanine Aminotransfer ALT/SGPT 17 U/L (<=34); Albumin, Serum 3.9 g/dL (3.4-4.8); Alkaline Phosphatase 78 U/L (35-104); Anion Gap 14 (5-15); BUN 28 mg/dL (4-19); BUN/Creat Ratio 32.4 RATIO (10-20); Calcium,Total 9.1 mg/dL (7.6-11.0); Carbon Dioxide 22.7 mmol/L (21.0-32.0); Chloride 101 mmol/L (98-108); Creatinine, Serum 0.86 mg/dL (0.70-1.20); EST Glomerular Filtration Rate 69 (>60); Globulin 2.9 g/dL (2.2-4.2); Glucose 153 mg/dL (70-99); Lipase 12 U/L (13-75); Potassium 4.1 mmol/L (3.3-5.1); Protein, Total 6.7 g/dL (5.9-8.4); Sodium Level 138 mmol/L (133-145); Total Bilirubin 1.02 mg/dL (0.00-1.30)
[2024-09-20 21:01] VITALS: BP 128/54; PULSE 74; RESP 19; TEMP 36.4; O2SAT 95
--- NOTE | 2024-09-20 22:07 | CM.ED ---
Social work This SW identified need to validate patient's advance directives and entered patient's room, introducing self and role at [facility]. Patient stated patient's HCPOA is patient's , Elijah. Patient stated the advance directives are not on file at [facility] yet, but patient intends to get documents to [facility] and to patient's PCP office within the next few weeks. 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
[2024-09-20 23:40] VITALS: BP 116/51; PULSE 80; RESP 18; TEMP 36.9; O2SAT 95
== END 2024-09-20 23:41 | disposition home or self-care (01) ==
PROVIDERS: Emergency Provider Emergency Medicine; PCP Internal Medicine; Visit Provider Emergency Medicine
DX: K52.9 Noninfective gastroenteritis and colitis, unspecified (principal); E11.9 Type 2 diabetes mellitus without complications; G47.33 Obstructive sleep apnea (adult) (pediatric); Z87.891 Personal history of nicotine dependence; Z86.718 Personal history of other venous thrombosis and embolism
CPT/HCPCS: 74177; 80053; 81001; 82962; 83690; 85025; 87086; 87088; 87631; 96374; 99283; Q9967; A4216

== ENCOUNTER 2024-09-21 06:21 | Emergency (ER) | payer MEDICARE, SELFPAY ==
[2024-09-21 06:22] VITALS: BP 115/35; PULSE 68; RESP 16; TEMP 36.9; O2SAT 98; BMI 43.7
--- NOTE | 2024-09-21 06:34 | EX.ED.DYSGE1 ---
HPI History of Present Illness Chief Complaint: Hyperglycemia Informant: patient and spouse/S.O. Narrative Narrative: 79-year-old female presenting for hyperglycemia. She was seen here in the ER and discharged 5 or 6 hours ago, she was having vomiting and diarrhea and abdominal discomfort. Her blood sugar was in the 120s and 150s, and she was discharged with a prescription for nausea medication and diagnosed with enteritis. When she went home her blood sugar went up to the low 300s before she went to bed, so states he gave her her Lantus, but when she woke up this morning, blood sugar is 406. Patient states she does not feel any different; however her nausea is better, she still had some diarrhea overnight, no blood, and she denies any abdominal pain. She is fatigued. [facility] Medical History THAIS (obstructive sleep apnea) Hyperglycemia due to type 2 diabetes mellitus Palpitations Sinus bradycardia Abnormal EKG Essential hypertension Premature atrial contractions Charcot's joint of left foot Asthma GERD (gastroesophageal reflux disease) History of DVT (deep vein thrombosis) Bimalleolar ankle fracture Paroxysmal SVT (supraventricular tachycardia) Premature ventricular contraction Hyperlipidemia Diabetes mellitus, type II Home Medications ?Medication ?Instructions ?Recorded ?Last Taken ?Type aspirin 81 mg tablet,delayed 81 mg PO DAILY heart health 11/24/17 02/06/24 History release ramipril 10 mg capsule 10 mg PO BID HEART 01/19/19 02/06/24 History cholecalciferol (vitamin D3) 1,250 1,250 mcg PO QWEEK SUPPLEMENT 12/03/19 02/05/24 History mcg (50,000 unit) capsule furosemide 20 mg tablet 20 mg PO DAILY PRN water pill 01/22/21 Unknown History budesonide-formoterol HFA 160 2 puff inhalation BID ASTHMA 12/21/21 02/06/24 History mcg-4.5 mcg/actuation aerosol inhaler zolpidem 5 mg tablet 2.5 mg PO QHS PRN Insomnia 02/11/22 Unknown History insulin lispro 100 unit/mL 6 unit subcut TIDCM dm 06/22/22 02/06/24 History subcutaneous solution omeprazole magnesium 20 mg 20 mg PO DAILY GERD 06/22/22 02/06/24 History tablet,delayed release (Prilosec OTC) amlodipine 10 mg tablet 5 mg PO DAILY 10/01/23 02/06/24 History metoprolol tartrate 50 mg tablet 25 mg PO Q12H heart rate, BP 10/01/23 02/06/24 History blood sugar diagnostic (OneTouch 02/06/24 Unknown History Ultra Test strips) benzonatate 100 mg capsule 100 mg PO TID 06/13/24 Unknown History insulin glargine 100 unit/mL (3 20 unit subcut QHS 06/13/24 Unknown History mL) subcutaneous pen (Lantus Solostar U-100 Insulin) mometasone 0.1 % topical cream 1 applic topical QDAY 06/13/24 Unknown History nitrofurantoin 100 mg capsule 100 mg PO BID 06/13/24 Unknown History Allergy/AdvReac Type Severity Reaction Status Date / Time hydromorphone Allergy Severe Anaphylaxis Verified 09/21/24 06:21 tramadol Allergy Severe Anaphylaxis Verified 09/21/24 06:21 amiodarone Allergy Intermediate Swelling Verified 09/21/24 06:21 Canadian And Derivatives Allergy Intermediate Hives Verified 09/21/24 06:21 morphine Allergy Intermediate confusion Verified 09/21/24 06:21 moxifloxacin Allergy Intermediate Shortness Verified 09/21/24 06:21 of breath nabumetone Allergy Intermediate damaged Verified 09/21/24 06:21 kidney penicillin G Allergy Intermediate TURNS BLUE Verified 09/21/24 06:21 propoxyphene Allergy Intermediate PT UNSURE Verified 09/21/24 06:21 OF REACTION amlodipine Allergy Mild Abd Verified 09/21/24 06:21 cramps/diarrhea desloratadine Allergy Mild headache Verified 09/21/24 06:21 glutamine (From Airborne Allergy Mild Itching Verified 09/21/24 06:21 (ascorbate sodium)) herbal complex no.124 (From Allergy Mild Itching Verified 09/21/24 06:21 Airborne (ascorbate sodium)) hydrocodone (From [place]) Allergy Mild dystonia Verified 09/21/24 06:21 lysine HCl (From Airborne Allergy Mild Itching Verified 09/21/24 06:21 (ascorbate sodium)) multivitamin with minerals Allergy Mild Itching Verified 09/21/24 06:21 (From Airborne (ascorbate sodium)) pravastatin Allergy Unknown unknown Verified 09/21/24 06:21 rosuvastatin (From Crestor) Allergy Unknown myalgias Verified 09/21/24 06:21 simvastatin Allergy Unknown unknown Verified 09/21/24 06:21 escitalopram Allergy Other Verified 09/21/24 06:21 hydrochlorothiazide Allergy Other Verified 09/21/24 06:21 Ujeiece-VRV-VgX Reductase AdvReac Severe myalgias Verified 09/21/24 06:21 Inhibitor (Onyipik-Fsd-Gvg Reductase Inhibitor) amoxicillin (From Augmentin) AdvReac Other Verified 09/21/24 06:21 clavulanic acid (From AdvReac Other Verified 09/21/24 06:21 Augmentin) codeine AdvReac Nausea Verified 09/21/24 06:21 naproxen (From Naprosyn) AdvReac Nausea Verified 09/21/24 06:21 oseltamivir (From Tamiflu) AdvReac HALLUCINATI Verified 09/21/24 06:21 ONS Family History Mother Aortic stenosis Presence of permanent cardiac pacemaker Surgical History History of herniorrhaphy Status post ORIF of fracture of ankle History of tonsillectomy History of cholecystectomy Social History household members: spouse Smoking Status: Former smoker alcohol intake: never substance use type: does not use caffeine: Yes Type: coffee Number of servings: 3 ROS ROS ED Constitutional Constitutional ED: Reports fatigue; Denies chills or fever(s) Eyes Eyes: Denies change in vision or diplopia ENT ENT ED: Denies rhinorrhea or sore throat Cardiovascular Cardiovascular: Denies chest pain or palpitations Respiratory/Chest Respiratory/Chest: Denies cough or dyspnea Gastrointestinal Gastrointestinal: Reports diarrhea; Denies abdominal pain, nausea or vomiting Genitourinary Genitourinary ED: Denies dysuria or hematuria Musculoskeletal Musculoskeletal: Denies back pain or neck pain Integumentary Denies abscess or rash Neurologic Neurologic: Denies headache(s), paresthesias or weakness EXAM Physical Exam Const Vital Signs: 09/21/24 06:22 09/21/24 06:26 Temperature 98.4 F Temperature Source Oral Pulse Rate 68 Respiratory Rate 16 Respiratory Effort Normal Non-Labored Respiratory Pattern Normal Blood Pressure 115/35 L Blood Pressure Mean 61 Pulse Ox 98 Oxygen Delivery Method Room Air Positive well nourished, well developed and obese General Appearance ED: well developed and NAD Nutritional Appearance: obese HEENT Reports moist mucous membranes normocephalic and atraumatic Eyes PERRL and EOMs intact bilaterally Neck full ROM and supple Resp normal respiratory effort and clear to auscultation bilaterally Cardio regular rate, regular rhythm and no murmurs Rate: Negative for tachycardic GI non-tender and non-distended Auscultation: normoactive bowel sounds Palpation: soft Back/Spine no CVA tenderness General Back: other FROM Extremity normal to inspection General Extremety ED: Negative for edema, pulses abnormal or tenderness General Extremity: Negative for edema or pulses abnormal Neuro oriented x3, CN's II-XII intact bilaterally and no sensory deficits noted Sensorium / Orientation: awake and alert Motor Exam: strength 5/5 throughout Skin no rashes or lesions noted and no wounds MDM MDM MDM Narrative Medical decision making narrative: The patient is a type II diabetic according to EMR, and she has both Lantus and aspart insulin at home. I advised the patient and that the aspart is the insulin to use in the case of hyperglycemia not the Lantus. I also reinforced that he was not incorrect to give her her nighttime Lantus, it just does not bring blood sugar down quickly. We checked her blood sugar here, it was 396. She will given 16 units of lispro SC and rechecked. I do not think she needs any more workup. I reviewed her recent ED case, she is tolerating oral fluids well now, she does not have any abdominal pain or abdominal tenderness, and the plan will be to get her blood sugar down to a reasonable level, give her instructions for treating it at home with her aspart if it goes up again, and discharge her when her sugar is more stable. Lab Data Attestation: I reviewed the patient's lab results. Labs: Laboratory Results - last 24 hr 09/21/24 06:24 POC Glucose 392 H Discharge Plan Triage Chief Complaint: Hyperglycemia ED Provider: Nik Nunez Dx/Rx/DC Orders Clinical Impression: Hyperglycemia due to type 2 diabetes mellitus, Enteritis Instructions: ED Diabetic Hyperglycemia Prescriptions: No Action aspirin 81 mg tablet,delayed release (DR/EC) 81 mg PO DAILY Patient Comments: only takes sometimes cholecalciferol (vitamin D3) 1,250 mcg (50,000 unit) capsule 1,250 mcg PO QWEEK furosemide 20 mg tablet 20 mg PO DAILY PRN (Reason: water pill) insulin lispro 100 unit/mL solution 6 unit subcut TIDCM Protocol: 4. Sliding Scale Insulin High-Med Dosing Condition: 150-199 mg/dl = 2 units Condition: 200-259 mg/dl = 4 units Condition: 260-324 mg/dl = 6 units Condition: 325-374 mg/dl = 8 units Condition: 375-409 mg/dl = 10 units Condition: 410-449 mg/dl = 11 units Condition: Greater than 449 call physician Protocol Text: - Use for Total Daily Dose of Insulin 56-80 units - Patient who are insulin resistant or septic HIGH MEDIUM DOSING ALGORITHM Patient Comments: INJECT 3 TO 10 UNITS SUBCUTANEOUSLY BEFORE MEALS DIRECTED budesonide-formoterol 160-4.5 mcg/actuation HFA aerosol inhaler 2 puff inhalation BID omeprazole magnesium [Prilosec OTC] 20 mg tablet,delayed release (DR/EC) 20 mg PO DAILY mometasone 0.1 % cream 1 applic topical QDAY benzonatate 100 mg capsule 100 mg PO TID nitrofurantoin 100 mg capsule 100 mg PO BID Rx Instructions: must administer with a meal/food ramipril 10 MG capsule 10 mg PO BID Patient Comments: TAKE 1 CAPSULE BY MOUTH TWICE DAILY zolpidem 5 mg Tablet 2.5 mg PO QHS PRN (Reason: Insomnia) metoprolol tartrate 50 mg tablet 25 mg PO Q12H Patient Comments: takes half tablet in morning and night amlodipine 10 mg tablet 5 mg PO DAILY Patient Comments: takes half tablet/day (DME) OneTouch Ultra Test Strip MISCELLANEOUS Patient Comments: [NO ORIGINAL SIG] insulin glargine [Lantus Solostar U-100 Insulin] 100 unit/mL (3 mL) insulin pen 20 unit subcut QHS Rx Instructions: 20-26u Primary Care Provider: Luzma Palencia Referrals: Luzma Palencia MD [Primary Care Provider] - 1-2 Days if not improving Print Language: Micronesian Disposition Disposition: Home, Self Care
[2024-09-21 06:44] LABS: Bedside Glucose 392 mg/dL (74-106)
[2024-09-21] MEDS: Insulin Lispro 100 UNIT/ML INSULN.PEN 16 UNIT SC (07:02)
[2024-09-21 08:12] LABS: Bedside Glucose 428 mg/dL (74-106)
[2024-09-21 08:27] VITALS: BP 103/37; PULSE 68; RESP 16; O2SAT 99
[2024-09-21] MEDS: Insulin Lispro 100 UNIT/ML VIAL (ADMELOG) 10 UNIT IV (08:43)
[2024-09-21] MEDS: 0.9% Normal Saline (1000mL) 1,000 ML 999 ML IV (08:43)
[2024-09-21 08:55] LABS: Anion Gap 14 (5-15); BUN 36 mg/dL (4-19); Calcium,Total 8.3 mg/dL (7.6-11.0); Carbon Dioxide 20.7 mmol/L (21.0-32.0); Chloride 97 mmol/L (98-108); Creatinine, Serum 1.24 mg/dL (0.70-1.20); EST Glomerular Filtration Rate 44 (>60); Estimated Creatinine Clearance 54.31 ml/min (50-250); Glucose 433 mg/dL (70-99); Potassium 3.8 mmol/L (3.3-5.1); Sodium Level 132 mmol/L (133-145)
[2024-09-21 10:00] VITALS: BP 107/35; PULSE 73; RESP 16; O2SAT 96
[2024-09-21 10:10] LABS: Bedside Glucose 297 mg/dL (74-106)
[2024-09-21 10:19] VITALS: BP 118/50; PULSE 73; RESP 16; TEMP 36.6; O2SAT 99
== END 2024-09-21 10:24 | disposition home or self-care (01) ==
PROVIDERS: Emergency Medicine; Emergency Provider Emergency Medicine; PCP Internal Medicine; Visit Provider Emergency Medicine
DX: E11.65 Type 2 diabetes mellitus with hyperglycemia (principal); K52.9 Noninfective gastroenteritis and colitis, unspecified; G47.33 Obstructive sleep apnea (adult) (pediatric); E66.9 Obesity, unspecified; Z86.718 Personal history of other venous thrombosis and embolism; Z87.891 Personal history of nicotine dependence
CPT/HCPCS: 80048; 82962; 99283; A4216

== ENCOUNTER 2024-09-23 19:25 | Emergency (ER) | payer MEDICARE, SELFPAY ==
[2024-09-23 19:25] VITALS: BP 149/68; PULSE 80; RESP 14; TEMP 36.6; O2SAT 97; BMI 44.0
--- NOTE | 2024-09-23 19:47 | EX.ED.DYSGE1 ---
HPI <ALEN Diamond - Last Filed: 09/23/24 21:55> History of Present Illness Chief Complaint: Diarrhea Narrative Narrative: 79-year-old female has type 2 diabetes and presents with diarrhea over the last 3 days. She states she had not had a bowel movement in 3 days so she took half a dose of Ex-Lax on 09/20 and started having episodes of diarrhea. She was seen in the emergency room on 09/20 and 09/21 for diarrhea and elevated blood sugars. She had a CT scan showing ileus vs enteritis. She states today she has had 6 episodes of loose stool. No melena or hematochezia. No fever. No vomiting or abdominal pain. She has been checking fingerstick glucose levels frequently throughout the day and was concerned she dropped to 76 at 5:30 PM. She was feeling symptomatic and ate peanut butter and crackers and Gatorade. She takes insulin aspart and Lantus. [facility] <ALEN Diamond - Last Filed: 09/23/24 21:55> [facility] Medical History THAIS (obstructive sleep apnea) Hyperglycemia due to type 2 diabetes mellitus Palpitations Sinus bradycardia Abnormal EKG Essential hypertension Premature atrial contractions Charcot's joint of left foot Asthma GERD (gastroesophageal reflux disease) History of DVT (deep vein thrombosis) Bimalleolar ankle fracture Paroxysmal SVT (supraventricular tachycardia) Premature ventricular contraction Hyperlipidemia Diabetes mellitus, type II Home Medications ?Medication ?Instructions ?Recorded ?Last Taken ?Type aspirin 81 mg tablet,delayed 81 mg PO DAILY heart health 11/24/17 02/06/24 History release ramipril 10 mg capsule 10 mg PO BID HEART 01/19/19 02/06/24 History cholecalciferol (vitamin D3) 1,250 1,250 mcg PO QWEEK SUPPLEMENT 12/03/19 02/05/24 History mcg (50,000 unit) capsule furosemide 20 mg tablet 20 mg PO DAILY PRN water pill 01/22/21 Unknown History budesonide-formoterol HFA 160 2 puff inhalation BID ASTHMA 12/21/21 02/06/24 History mcg-4.5 mcg/actuation aerosol inhaler zolpidem 5 mg tablet 2.5 mg PO QHS PRN Insomnia 02/11/22 Unknown History insulin lispro 100 unit/mL 6 unit subcut TIDCM dm 06/22/22 02/06/24 History subcutaneous solution omeprazole magnesium 20 mg 20 mg PO DAILY GERD 06/22/22 02/06/24 History tablet,delayed release (Prilosec OTC) amlodipine 10 mg tablet 5 mg PO DAILY 10/01/23 02/06/24 History metoprolol tartrate 50 mg tablet 25 mg PO Q12H heart rate, BP 10/01/23 02/06/24 History blood sugar diagnostic (OneTouch 02/06/24 Unknown History Ultra Test strips) benzonatate 100 mg capsule 100 mg PO TID 06/13/24 Unknown History insulin glargine 100 unit/mL (3 20 unit subcut QHS 06/13/24 Unknown History mL) subcutaneous pen (Lantus Solostar U-100 Insulin) mometasone 0.1 % topical cream 1 applic topical QDAY 06/13/24 Unknown History nitrofurantoin 100 mg capsule 100 mg PO BID 06/13/24 Unknown History Allergy/AdvReac Type Severity Reaction Status Date / Time hydromorphone Allergy Severe Anaphylaxis Verified 09/23/24 19:25 tramadol Allergy Severe Anaphylaxis Verified 09/23/24 19:25 amiodarone Allergy Intermediate Swelling Verified 09/23/24 19:25 Cooke And Derivatives Allergy Intermediate Hives Verified 09/23/24 19:25 morphine Allergy Intermediate confusion Verified 09/23/24 19:25 moxifloxacin Allergy Intermediate Shortness Verified 09/23/24 19:25 of breath nabumetone Allergy Intermediate damaged Verified 09/23/24 19:25 kidney penicillin G Allergy Intermediate TURNS BLUE Verified 09/23/24 19:25 propoxyphene Allergy Intermediate PT UNSURE Verified 09/23/24 19:25 OF REACTION amlodipine Allergy Mild Abd Verified 09/23/24 19:25 cramps/diarrhea desloratadine Allergy Mild headache Verified 09/23/24 19:25 glutamine (From Airborne Allergy Mild Itching Verified 09/23/24 19:25 (ascorbate sodium)) herbal complex no.124 (From Allergy Mild Itching Verified 09/23/24 19:25 Airborne (ascorbate sodium)) hydrocodone (From Empire) Allergy Mild dystonia Verified 09/23/24 19:25 lysine HCl (From Airborne Allergy Mild Itching Verified 09/23/24 19:25 (ascorbate sodium)) multivitamin with minerals Allergy Mild Itching Verified 09/23/24 19:25 (From Airborne (ascorbate sodium)) pravastatin Allergy Unknown unknown Verified 09/23/24 19:25 rosuvastatin (From Crestor) Allergy Unknown myalgias Verified 09/23/24 19:25 simvastatin Allergy Unknown unknown Verified 09/23/24 19:25 escitalopram Allergy Other Verified 09/23/24 19:25 hydrochlorothiazide Allergy Other Verified 09/23/24 19:25 [id number] Reductase AdvReac Severe myalgias Verified 09/23/24 19:25 Inhibitor (Krldyhl-Ech-Fzm Reductase Inhibitor) amoxicillin (From Augmentin) AdvReac Other Verified 09/23/24 19:25 clavulanic acid (From AdvReac Other Verified 09/23/24 19:25 Augmentin) codeine AdvReac Nausea Verified 09/23/24 19:25 naproxen (From Naprosyn) AdvReac Nausea Verified 09/23/24 19:25 oseltamivir (From Tamiflu) AdvReac HALLUCINATI Verified 09/23/24 19:25 ONS Family History Mother Aortic stenosis Presence of permanent cardiac pacemaker Surgical History History of herniorrhaphy Status post ORIF of fracture of ankle History of tonsillectomy History of cholecystectomy Social History household members: spouse Smoking Status: Former smoker alcohol intake: never substance use type: does not use caffeine: Yes Type: coffee Number of servings: 3 EXAM <ALEN Diamond - Last Filed: 09/23/24 21:55> Physical Exam Const Vital Signs: 09/23/24 19:25 Temperature 98 F Temperature Source Oral Pulse Rate 80 Respiratory Rate 14 Blood Pressure 149/68 H Blood Pressure Mean 95 Pulse Ox 97 <Dr. Abdulaziz Stratton MD - Last Filed: 09/23/24 22:08> Physical Exam Const Vital Signs: 09/23/24 19:25 Temperature 98 F Temperature Source Oral Pulse Rate 80 Respiratory Rate 14 Blood Pressure 149/68 H Blood Pressure Mean 95 Pulse Ox 97 MDM <ALEN Diamond - Last Filed: 09/23/24 21:55> [facility] Narrative Medical decision making narrative: History gathered from: Patient and Differential includes but not limited to electrolyte abnormality, JONATHAN, she has no abdominal pain or tenderness so I do not suspect intra-abdominal process such as diverticulitis 79-year-old female has had diarrhea over the last 3 days. She states this started after she took 1 dose of Ex-Lax. She is tolerating p.o. intake. No vomiting. No fevers. She appears well and nontoxic. Vital signs stable. She has moist mucous membranes. Soft, benign abdomen. CBC shows WBC of 3.9. Hemoglobin is 11.9 which is down from 13.8 three days ago. Due to this I did a rectal exam. She has light yellowish-brown stool and Hemoccult is pending. Chemistry panel is unremarkable and glucose is 125. She had a CT scan 3 days ago on September 20 which showed fluid-filled loops of small and large bowel with the differential of ileus versus enteritis. Since her abdominal exam is benign. I do not think she requires repeat imaging. She was given Imodium and can continue this [id number]. I suspect her diarrhea is viral in nature. She was discharged in stable condition. I have personally performed a face to face assessment of the patient and have reviewed the ABIMBOLA Note. I performed a substantive portion of the visit including all aspects of the following. My dumont findings include: History is [loose stools. Send 9-year-old female 2 recent visits to Emergency Department last 3 days. Says he was having some constipation. Took some Ex-Lax and now is having loose stools the last 3 days. Denies any gross blood. No vomiting. No fever. No abdominal pain.] Exam is [well-appearing 79-year-old female. Vital signs are stable. She is afebrile. She does not look septic or toxic. She does not look dehydrated. HEENT exam pupils round reactive light. No facial droop. Normal speech. Moist mucous membranes. Neck nontender no lymphadenopathy. Lungs clear to auscultation bilaterally. Heart regular rhythm no murmur rate about 80. Chest wall ribs nontender. Abdomen soft nontender. Moving all 4 extremities. Calves are nontender without edema or cords. Normal strength. Neurologically she is awake alert no focal motor deficits. Skin unremarkable. No rashes. No petechiae appropriate. Back nontender.] Medical Decision Making [79-year-old female loose stools. Benign exam. Screening labs being obtained.] Other additions or changes: [None] Lab Data Labs: Laboratory Results - last 24 hr 09/23/24 20:37 WBC 3.9 L RBC 4.05 L Hgb 11.9 L Hct 35.9 L MCV 88.6 MCH 29.4 MCHC 33.1 RDW Std Deviation 42.2 RDW Coeff of Madalyn 13.0 Plt Count 169 MPV 12.3 H Immature Gran % (Auto) 0.300 Neut % (Auto) 67.6 Lymph % (Auto) 17.6 L [place] % (Auto) 12.7 H Eos % (Auto) 1.5 Baso % (Auto) 0.3 Absolute Neuts (auto) 2.7 Absolute Lymphs (auto) 0.69 L Nucleated RBC % 0 Sodium 139 Potassium 3.7 Chloride 106 Carbon Dioxide 21.6 Anion Gap 11 BUN 14 Creatinine 0.70 Estim Creat Clear Calc 84.46 Est GFR (MDRD) Non-Af 88 BUN/Creatinine Ratio 20.4 H Glucose 125 H Calcium 8.5 <Dr. Abdulaziz Stratton MD - Last Filed: 09/23/24 22:08> MDM MDM Narrative Medical decision making narrative: History gathered from: Patient and Differential includes but not limited to electrolyte abnormality, JONATHAN, she has no abdominal pain or tenderness so I do not suspect intra-abdominal process such as diverticulitis Patient doing well on repeat exam at 10:07 p.m. She is comfortable being discharged to home. I told her there is a small amount of blood in her stool. She is following up with her primary care physician on Tuesday. She knows that her blood count also dropped a little bit. She has had prior colonoscopies but none in the last several months. Blood sugar 79-year-old female has had diarrhea over the last 3 days. She states this started after she took 1 dose of Ex-Lax. She is tolerating p.o. intake. No vomiting. No fevers. She appears well and nontoxic. Vital signs stable. She has moist mucous membranes. Soft, benign abdomen. CBC shows WBC of 3.9. Hemoglobin is 11.9 which is down from 13.8 three days ago. Due to this I did a rectal exam. She has light yellowish-brown stool and Hemoccult is pending. Chemistry panel is unremarkable and glucose is 125. She had a CT scan 3 days ago on September 20 which showed fluid-filled loops of small and large bowel with the differential of ileus versus enteritis. Since her abdominal exam is benign. I do not think she requires repeat imaging. She was given Imodium and can continue this [id number]. I suspect her diarrhea is viral in nature. She was discharged in stable condition. I have personally performed a face to face assessment of the patient and have reviewed the ABIMBOLA Note. I performed a substantive portion of the visit including all aspects of the following. My dumont findings include: History is [loose stools. Send 9-year-old female 2 recent visits to Emergency Department last 3 days. Says he was having some constipation. Took some Ex-Lax and now is having loose stools the last 3 days. Denies any gross blood. No vomiting. No fever. No abdominal pain.] Exam is [well-appearing 79-year-old female. Vital signs are stable. She is afebrile. She does not look septic or toxic. She does not look dehydrated. HEENT exam pupils round reactive light. No facial droop. Normal speech. Moist mucous membranes. Neck nontender no lymphadenopathy. Lungs clear to auscultation bilaterally. Heart regular rhythm no murmur rate about 80. Chest wall ribs nontender. Abdomen soft nontender. Moving all 4 extremities. Calves are nontender without edema or cords. Normal strength. Neurologically she is awake alert no focal motor deficits. Skin unremarkable. No rashes. No petechiae appropriate. Back nontender.] Medical Decision Making [79-year-old female loose stools. Benign exam. Screening labs being obtained.] Other additions or changes: [None] History & Record Review Discussion w/independent historian: Patient Additional record(s) reviewed:: Prior inpatient record, Prior outpatient record and Prior ED visit Lab Data Attestation: I reviewed the patient's lab results. Lab results narrative: CBC shows a white count of 3.9. H&H 11.9 and 35.9. Recently her hemoglobin was around 13.8. Rectal exam will be obtained. Hemoccult stool was positive for blood. It was not black or melanotic. Labs: Laboratory Results - last 24 hr 09/23/24 20:37 WBC 3.9 L RBC 4.05 L Hgb 11.9 L Hct 35.9 L MCV 88.6 MCH 29.4 MCHC 33.1 RDW Std Deviation 42.2 RDW Coeff of Madalyn 13.0 Plt Count 169 MPV 12.3 H Immature Gran % (Auto) 0.300 Neut % (Auto) 67.6 Lymph % (Auto) 17.6 L [place] % (Auto) 12.7 H Eos % (Auto) 1.5 Baso % (Auto) 0.3 Absolute Neuts (auto) 2.7 Absolute Lymphs (auto) 0.69 L Nucleated RBC % 0 Sodium 139 Potassium 3.7 Chloride 106 Carbon Dioxide 21.6 Anion Gap 11 BUN 14 Creatinine 0.70 Estim Creat Clear Calc 84.46 Est GFR (MDRD) Non-Af 88 BUN/Creatinine Ratio 20.4 H Glucose 125 H Calcium 8.5 Discharge Plan Triage Chief Complaint: Diarrhea ED Midlevel Provider: Amber Martino ED Provider: Abdulaziz Stratton Dx/Rx/DC Orders Clinical Impression: Diarrhea, Hx of type 2 diabetes mellitus, Acute viral syndrome Instructions: ED Diarrhea, Unknown Cause Prescriptions: No Action aspirin 81 mg tablet,delayed release (DR/EC) 81 mg PO DAILY Patient Comments: only takes sometimes cholecalciferol (vitamin D3) 1,250 mcg (50,000 unit) capsule 1,250 mcg PO QWEEK furosemide 20 mg tablet 20 mg PO DAILY PRN (Reason: water pill) insulin lispro 100 unit/mL solution 6 unit subcut TIDCM Protocol: 4. Sliding Scale Insulin High-Med Dosing Condition: 150-199 mg/dl = 2 units Condition: 200-259 mg/dl = 4 units Condition: 260-324 mg/dl = 6 units Condition: 325-374 mg/dl = 8 units Condition: 375-409 mg/dl = 10 units Condition: 410-449 mg/dl = 11 units Condition: Greater than 449 call physician Protocol Text: - Use for Total Daily Dose of Insulin 56-80 units - Patient who are insulin resistant or septic HIGH MEDIUM DOSING ALGORITHM Patient Comments: INJECT 3 TO 10 UNITS SUBCUTANEOUSLY BEFORE MEALS DIRECTED budesonide-formoterol 160-4.5 mcg/actuation HFA aerosol inhaler 2 puff inhalation BID omeprazole magnesium [Prilosec OTC] 20 mg tablet,delayed release (DR/EC) 20 mg PO DAILY mometasone 0.1 % cream 1 applic topical QDAY benzonatate 100 mg capsule 100 mg PO TID nitrofurantoin 100 mg capsule 100 mg PO BID Rx Instructions: must administer with a meal/food ramipril 10 MG capsule 10 mg PO BID Patient Comments: TAKE 1 CAPSULE BY MOUTH TWICE DAILY zolpidem 5 mg Tablet 2.5 mg PO QHS PRN (Reason: Insomnia) metoprolol tartrate 50 mg tablet 25 mg PO Q12H Patient Comments: takes half tablet in morning and night amlodipine 10 mg tablet 5 mg PO DAILY Patient Comments: takes half tablet/day (DME) OneTouch Ultra Test Strip MISCELLANEOUS Patient Comments: [NO ORIGINAL SIG] insulin glargine [Lantus Solostar U-100 Insulin] 100 unit/mL (3 mL) insulin pen 20 unit subcut QHS Rx Instructions: 20-26u Primary Care Provider: Luzma Palencia Referrals: Luzma Palencia MD [Primary Care Provider] - 1 Week Activity Restrictions/Additional Instructions: You can take [id number] Imodium as needed. Drink plenty of fluids. Follow-up with your primary care doctor. Follow-up with your doctor. You have small amount of blood in your diarrhea. Your blood count is dropped a little bit. You need to have your blood count rechecked in 1 to 2 weeks. And they can decide whether test to do for the small amount of blood in your stool. Print Language: [place] Disposition Disposition: Home, Self Care
[2024-09-23 20:48] LABS: Absolute Lymphocyte Count 0.69 X10^3/uL (0.83-4.51); Absolute Neutrophil Count 2.7 X10^3/uL (2.0-7.7); Basophil# 0.01 X10^3/uL; Basophil% 0.3 % (0-1); Eosinophil# 0.06 X10^3/uL; Eosinophils% 1.5 % (0-5); Hematocrit 35.9 % (37-47); Hemoglobin 11.9 g/dL (12.0-15.0); Lymphocyte # 0.69 X10^3/ul (0.83-4.51); Lymphocyte % 17.6 % (19-41); Mean Corp Hgb Conc 33.1 g/dL (32-36); Mean Corpuscular Hgb 29.4 pg (27.0-32.0); Mean Corpuscular Volume 88.6 fL (81-99); Mean Platelet Vol. 12.3 fl (6.2-12.0); Monocyte% 12.7 % (0-10); NRBC Flagged by Analyzer 0 % (0-5); Neutrophil # 2.66 X10^3/uL (2.7-7.7); Neutrophil % 67.6 % (47-70); Platelet Count 169 K/mm3 (150-450); RBC Distribution Width SD 42.2 fl (35.1-43.9); Red Blood Count 4.05 M/mm3 (4.2-5.4); White Blood Count 3.9 K/mm3 (4.4-11.0)
[2024-09-23] MEDS: Loperamide 2 MG Capsule PO (20:57)
[2024-09-23 21:13] LABS: Anion Gap 11 (5-15); BUN 14 mg/dL (4-19); BUN/Creat Ratio 20.4 RATIO (10-20); Calcium,Total 8.5 mg/dL (7.6-11.0); Carbon Dioxide 21.6 mmol/L (21.0-32.0); Chloride 106 mmol/L (98-108); EST Glomerular Filtration Rate 88 (>60); Estimated Creatinine Clearance 84.46 ml/min (50-250); Glucose 125 mg/dL (70-99); Potassium 3.7 mmol/L (3.3-5.1); Sodium Level 139 mmol/L (133-145)
[2024-09-23 22:36] VITALS: BP 135/57; PULSE 65; RESP 18; TEMP 36.7; O2SAT 99
== END 2024-09-23 22:37 | disposition home or self-care (01) ==
PROVIDERS: Physician Assistant; Emergency Provider Emergency Medicine; PCP Internal Medicine; Visit Provider Emergency Medicine
DX: R19.7 Diarrhea, unspecified (principal); E11.9 Type 2 diabetes mellitus without complications; Z79.4 Long term (current) use of insulin; B34.9 Viral infection, unspecified; G47.33 Obstructive sleep apnea (adult) (pediatric); Z86.718 Personal history of other venous thrombosis and embolism; Z87.891 Personal history of nicotine dependence
CPT/HCPCS: 80048; 82274; 85025; 99283; A4216

== ENCOUNTER 2024-10-19 09:27 | Emergency (ER) | payer MEDICARE, SELFPAY ==
[2024-10-19 09:27] VITALS: BP 159/55; PULSE 55; RESP 14; TEMP 36.7; O2SAT 98
[2024-10-19 09:42] VITALS: BMI 42.4
--- NOTE | 2024-10-19 09:53 | ED.VIS.LOWEX ---
HPI History of Present Illness Chief Complaint: Lower Extremity Injury Informant: patient and spouse/S.O. Narrative Narrative: 79-year-old female presenting to the emergency room with left leg pain. Patient states that a couple days ago she went to get up from a sitting position when she felt the pain over the lateral aspect of the left hip. She notes the pain has been radiating down the anterior lateral aspect of the thigh towards the lower leg and then dissipates. She denies any redness or rashes. She denies any new swelling. She states that she tries to be active riding several miles on a stationary bike a day. She does have a prior history of DVT. She denies any medial or distal leg symptoms. She does note a history of arthritis. She also noticed that this morning her blood sugars were higher than expected having been in the low to mid 300 range. No fever. No infectious symptoms. She denies any falls or known trauma other than getting up. [facility] Medical History THAIS (obstructive sleep apnea) Hyperglycemia due to type 2 diabetes mellitus Palpitations Sinus bradycardia Abnormal EKG Essential hypertension Premature atrial contractions Charcot's joint of left foot Asthma GERD (gastroesophageal reflux disease) History of DVT (deep vein thrombosis) Bimalleolar ankle fracture Paroxysmal SVT (supraventricular tachycardia) Premature ventricular contraction Hyperlipidemia Diabetes mellitus, type II Home Medications ?Medication ?Instructions ?Recorded ?Last Taken ?Type aspirin 81 mg tablet,delayed 81 mg PO DAILY heart health 11/24/17 02/06/24 History release ramipril 10 mg capsule 10 mg PO BID HEART 01/19/19 02/06/24 History cholecalciferol (vitamin D3) 1,250 1,250 mcg PO QWEEK SUPPLEMENT 12/03/19 02/05/24 History mcg (50,000 unit) capsule furosemide 20 mg tablet 20 mg PO DAILY PRN water pill 01/22/21 Unknown History budesonide-formoterol HFA 160 2 puff inhalation BID ASTHMA 12/21/21 02/06/24 History mcg-4.5 mcg/actuation aerosol inhaler zolpidem 5 mg tablet 2.5 mg PO QHS PRN Insomnia 02/11/22 Unknown History insulin lispro 100 unit/mL 6 unit subcut TIDCM dm 06/22/22 02/06/24 History subcutaneous solution omeprazole magnesium 20 mg 20 mg PO DAILY GERD 06/22/22 02/06/24 History tablet,delayed release (Prilosec OTC) amlodipine 10 mg tablet 5 mg PO DAILY 10/01/23 02/06/24 History metoprolol tartrate 50 mg tablet 25 mg PO Q12H heart rate, BP 10/01/23 02/06/24 History blood sugar diagnostic (OneTouch 02/06/24 Unknown History Ultra Test strips) benzonatate 100 mg capsule 100 mg PO TID 06/13/24 Unknown History insulin glargine 100 unit/mL (3 20 unit subcut QHS 06/13/24 Unknown History mL) subcutaneous pen (Lantus Solostar U-100 Insulin) mometasone 0.1 % topical cream 1 applic topical QDAY 06/13/24 Unknown History nitrofurantoin 100 mg capsule 100 mg PO BID 06/13/24 Unknown History Allergy/AdvReac Type Severity Reaction Status Date / Time hydromorphone Allergy Severe Anaphylaxis Verified 10/19/24 09:28 tramadol Allergy Severe Anaphylaxis Verified 10/19/24 09:28 amiodarone Allergy Intermediate Swelling Verified 10/19/24 09:28 Brooks [employer]ivatives Allergy Intermediate Hives Verified 10/19/24 09:28 morphine Allergy Intermediate confusion Verified 10/19/24 09:28 moxifloxacin Allergy Intermediate Shortness Verified 10/19/24 09:28 of breath nabumetone Allergy Intermediate damaged Verified 10/19/24 09:28 kidney penicillin G Allergy Intermediate TURNS BLUE Verified 10/19/24 09:28 propoxyphene Allergy Intermediate PT UNSURE Verified 10/19/24 09:28 OF REACTION amlodipine Allergy Mild Abd Verified 10/19/24 09:28 cramps/diarrhea desloratadine Allergy Mild headache Verified 10/19/24 09:28 glutamine (From Airborne Allergy Mild Itching Verified 10/19/24 09:28 (ascorbate sodium)) herbal complex no.124 (From Allergy Mild Itching Verified 10/19/24 09:28 Airborne (ascorbate sodium)) hydrocodone (From [place]) Allergy Mild dystonia Verified 10/19/24 09:28 lysine HCl (From Airborne Allergy Mild Itching Verified 10/19/24 09:28 (ascorbate sodium)) multivitamin with minerals Allergy Mild Itching Verified 10/19/24 09:28 (From Air[place] (ascorbate sodium)) pravastatin Allergy Unknown unknown Verified 10/19/24 09:28 rosuvastatin (From Crestor) Allergy Unknown myalgias Verified 10/19/24 09:28 simvastatin Allergy Unknown unknown Verified 10/19/24 09:28 escitalopram Allergy Other Verified 10/19/24 09:28 hydrochlorothiazide Allergy Other Verified 10/19/24 09:28 Wiycins-HEY-OeX Reductase AdvReac Severe myalgias Verified 10/19/24 09:28 Inhibitor (Mjqxnlx-Cqf-Vuv Reductase Inhibitor) amoxicillin (From Augmentin) AdvReac Other Verified 10/19/24 09:28 clavulanic acid (From AdvReac Other Verified 10/19/24 09:28 Augmentin) codeine AdvReac Nausea Verified 10/19/24 09:28 naproxen (From Naprosyn) AdvReac Nausea Verified 10/19/24 09:28 oseltamivir (From Tamiflu) AdvReac HALLUCINATI Verified 10/19/24 09:28 ONS Family History Mother Aortic stenosis Presence of permanent cardiac pacemaker Surgical History History of herniorrhaphy Status post ORIF of fracture of ankle History of tonsillectomy History of cholecystectomy Social History household members: spouse Smoking Status: Former smoker alcohol intake: never substance use type: does not use caffeine: Yes Type: coffee Number of servings: 3 ROS ROS ED Constitutional Constitutional ED: Denies chills, fever(s) or weight loss Eyes Eyes: Denies change in vision or diplopia ENT ENT ED: Denies ear pain, rhinorrhea or sore throat Cardiovascular Cardiovascular: Denies chest pain, orthopnea, palpitations or racing heartbeat Respiratory/Chest Respiratory/Chest: Denies cough, dyspnea or orthopnea Gastrointestinal Gastrointestinal: Denies abdominal pain, diarrhea, nausea or vomiting Genitourinary Genitourinary ED: Denies dysuria, hematuria or urinary frequency Musculoskeletal Musculoskeletal: Reports other Details: See history of present illness ; Denies arthralgias or myalgias Integumentary Denies abscess, Abrasions or rash Neurologic Neurologic: Denies headache(s), paresthesias or weakness Psychiatric Psychiatric: Denies anxiety, depression, suicidal ideation or suicidal thoughts Endocrine Endocrinology: Denies polydipsia, polyphagia or polyuria Allergic/Immunologic Allergic/Immunologic ED: Denies mouth swelling, tongue swelling or urticaria EXAM Physical Exam Const Vital Signs: 10/19/24 09:27 10/19/24 12:03 Temperature 98.1 F Temperature Source Temporal Pulse Rate 55 L 77 Respiratory Rate 14 16 Blood Pressure 159/55 H 149/77 H Blood Pressure Mean 89 101 Pulse Ox 98 97 Oxygen Delivery Method Room Air Room Air Positive well nourished, well developed and obese General Appearance ED: well developed and NAD Nutritional Appearance: obese HEENT Reports normocephalic, head/scalp atraumatic and moist mucous membranes Eyes PERRL and EOMs intact bilaterally Neck no lymphadenopathy, supple and no JVD Resp normal respiratory effort and clear to auscultation bilaterally Cardio regular rate, regular rhythm and no murmurs GI normal to inspection, nondistended, normoactive bowel sounds and non-tender Palpation: soft Back/Spine no CVA tenderness and normal ROM Extremity Extremity Narrative: Patient has very focal tenderness over the greater trochanter on the left. I do not appreciate significant swelling of the leg compared to the right. There is no erythema. Neurovascularly appears intact. Painful range of motion. General Extremety ED: Negative for edema General Extremity: Negative for edema Neuro oriented x3 and CN's II-XII intact bilaterally Sensorium / Orientation: alert Motor Exam: strength 5/5 throughout Psych mental status grossly normal Mood & Affect: Negative for depressed or tearful Skin no rashes or lesions noted and no wounds MDM MDM MDM Narrative Medical decision making narrative: Differential diagnosis would include but not limited to fracture arthritis bursitis IT band syndrome DVT shingles neuropathy DKA infection Basic blood work was obtained shows a glucose of 334. Beta hydroxybutyrate 0.8. Urinalysis with no infection. White count is normal at 5.5. Hemoglobin 12.9 platelet count of 159. My independent interpretation of the plain films of the left hip with pelvis is mild osteoarthritis. I doubt DVT based on no distal leg symptoms. Clinically she is point tender over the greater trochanter over the past couple days after standing up. She does do repetitive motion of bicycle riding daily. She could have a greater trochanteric bursitis. Given her diabetes and elevated blood sugar hesitant to do steroids. She is comfortable with ice and ibuprofen. I recommend PCP follow-up 1 week. Return if worsening or any concerns. History & Record Review Discussion w/independent historian: Patient and Significant other Lab Data Attestation: I reviewed the patient's lab results. Labs: Laboratory Results - last 24 hr 10/19/24 10/19/24 10/19/24 09:39 10:05 11:15 WBC 5.5 RBC 4.35 Hgb 12.9 Hct 39.4 MCV 90.6 MCH 29.7 MCHC 32.7 RDW Std Deviation 41.8 RDW Coeff of Madalyn 12.7 Plt Count 159 MPV 12.9 H Immature Gran % (Auto) 0.000 Neut % (Auto) 76.2 H Lymph % (Auto) 14.[address] % (Auto) 6.4 Eos % (Auto) 2.5 Baso % (Auto) 0.5 Absolute Neuts (auto) 4.2 Absolute Lymphs (auto) 0.79 L Nucleated RBC % 0 Sodium 136 Potassium 4.5 Chloride 101 Carbon Dioxide 23.3 Anion Gap 12 BUN 19 Creatinine 0.83 Estim Creat Clear Calc 79.68 Est GFR (MDRD) Non-Af 72 BUN/Creatinine Ratio 23.1 H Glucose 334 H Calcium 9.3 b-Hydroxybutyric mmol/L 0.8 Urine Color Yellow Urine Clarity Clear Urine pH 6.0 Ur Specific [place] 1.015 Urine Protein Negative Urine Glucose (UA) 1000 H Urine Ketones 50 H Urine Occult Blood 10 H Urine Nitrite Negative Urine Bilirubin Negative Urine Urobilinogen Normal Ur Leukocyte Esterase 25 H Urine RBC 0 SEEN Urine WBC 0-5 SEEN Ur Squamous Epith Cells 0 SEEN Urine Bacteria 0 SEEN Urine Mucus 0 SEEN POC Glucose 339 H 10/19/24 12:01 WBC RBC Hgb Hct MCV MCH MCHC RDW Std Deviation RDW Coeff of Madalyn Plt Count MPV Immature Gran % (Auto) Neut % (Auto) Lymph % (Auto) [place] % (Auto) Eos % (Auto) Baso % (Auto) Absolute Neuts (auto) Absolute Lymphs (auto) Nucleated RBC % Sodium Potassium Chloride Carbon Dioxide Anion Gap BUN Creatinine Estim Creat Clear Calc Est GFR (MDRD) Non-Af BUN/Creatinine Ratio Glucose Calcium b-Hydroxybutyric mmol/L Urine Color Urine Clarity Urine pH Ur Specific [place] Urine Protein Urine Glucose (UA) Urine Ketones Urine Occult Blood Urine Nitrite Urine Bilirubin Urine Urobilinogen Ur Leukocyte Esterase Urine RBC Urine WBC Ur Squamous Epith Cells Urine Bacteria Urine Mucus POC Glucose 320 H Radiography Diagnostic Testing: Clinical Impression(s) from Imaging Studies Hip/Pelvis X-Ray 10/19/24 10:05 IMPRESSION: DEGENERATIVE OSTEOARTHROSIS. NO ACUTE FINDINGS. Reading Location: [place] [id number] Discharge Plan Triage Chief Complaint: Lower Extremity Injury ED Provider: Holland Sanches Dx/Rx/DC Orders Clinical Impression: Hyperglycemia due to diabetes mellitus, Acute pain of left thigh, Greater trochanteric bursitis Instructions: High Blood Sugar (Hyperglycemia), ED Bursitis Prescriptions: No Action aspirin 81 mg tablet,delayed release (DR/EC) 81 mg PO DAILY Patient Comments: only takes sometimes cholecalciferol (vitamin D3) 1,250 mcg (50,000 unit) capsule 1,250 mcg PO QWEEK furosemide 20 mg tablet 20 mg PO DAILY PRN (Reason: water pill) insulin lispro 100 unit/mL solution 6 unit subcut TIDCM Protocol: 4. Sliding Scale Insulin High-Med Dosing Condition: 150-199 mg/dl = 2 units Condition: 200-259 mg/dl = 4 units Condition: 260-324 mg/dl = 6 units Condition: 325-374 mg/dl = 8 units Condition: 375-409 mg/dl = 10 units Condition: 410-449 mg/dl = 11 units Condition: Greater than 449 call physician Protocol Text: - Use for Total Daily Dose of Insulin 56-80 units - Patient who are insulin resistant or septic HIGH MEDIUM DOSING ALGORITHM Patient Comments: INJECT 3 TO 10 UNITS SUBCUTANEOUSLY BEFORE MEALS DIRECTED budesonide-formoterol 160-4.5 mcg/actuation HFA aerosol inhaler 2 puff inhalation BID omeprazole magnesium [Prilosec OTC] 20 mg tablet,delayed release (DR/EC) 20 mg PO DAILY mometasone 0.1 % cream 1 applic topical QDAY benzonatate 100 mg capsule 100 mg PO TID nitrofurantoin 100 mg capsule 100 mg PO BID Rx Instructions: must administer with a meal/food ramipril 10 MG capsule 10 mg PO BID Patient Comments: TAKE 1 CAPSULE BY MOUTH TWICE DAILY zolpidem 5 mg Tablet 2.5 mg PO QHS PRN (Reason: Insomnia) metoprolol tartrate 50 mg tablet 25 mg PO Q12H Patient Comments: takes half tablet in morning and night amlodipine 10 mg tablet 5 mg PO DAILY Patient Comments: takes half tablet/day (DME) OneTouch Ultra Test Strip MISCELLANEOUS Patient Comments: [NO ORIGINAL SIG] insulin glargine [Lantus Solostar U-100 Insulin] 100 unit/mL (3 mL) insulin pen 20 unit subcut QHS Rx Instructions: 20-26u Primary Care Provider: Luzma Palencia Referrals: Luzma Palencia MD [Primary Care Provider] - 1 Week if not improving Print Language: Maltese Disposition Disposition: Home, Self Care
[2024-10-19 09:57] LABS: Bedside Glucose 339 mg/dL (74-106)
[2024-10-19] MEDS: Ketorolac 15 MG/ML Vial IV (10:02)
--- NOTE | 2024-10-19 10:05 | RAD_ITS ---
PROCEDURE: HIP, UNI W/ PELVIS 2-3 VIEWS 10/19/2024 REASON FOR EXAM: Left hip pain. TECHNIQUE: Three views of the left hip COMPARISON: None FINDINGS: Bones: Unremarkable Joints: Mild degree of joint space narrowing. Narrowing of the symphysis pubis. Soft tissues: Calcified phleboliths. Other: RAD/HIP, UNI W/ Pelvis 2-3 Views IMPRESSION: DEGENERATIVE OSTEOARTHROSIS. NO ACUTE FINDINGS. Reading Location: [place] [id number]
[2024-10-19 10:12] LABS: Absolute Lymphocyte Count 0.79 X10^3/uL (0.83-4.51); Absolute Neutrophil Count 4.2 X10^3/uL (2.0-7.7); Basophil# 0.03 X10^3/uL; Basophil% 0.5 % (0-1); Eosinophil# 0.14 X10^3/uL; Eosinophils% 2.5 % (0-5); Hematocrit 39.4 % (37-47); Hemoglobin 12.9 g/dL (12.0-15.0); Lymphocyte # 0.79 X10^3/ul (0.83-4.51); Lymphocyte % 14.4 % (19-41); Mean Corp Hgb Conc 32.7 g/dL (32-36); Mean Corpuscular Hgb 29.7 pg (27.0-32.0); Mean Corpuscular Volume 90.6 fL (81-99); Mean Platelet Vol. 12.9 fl (6.2-12.0); Monocyte# 0.35 X10^3/uL; Monocyte% 6.4 % (0-10); NRBC Flagged by Analyzer 0 % (0-5); Neutrophil # 4.19 X10^3/uL (2.7-7.7); Neutrophil % 76.2 % (47-70); Platelet Count 159 K/mm3 (150-450); RBC Distribution Width CV 12.7 % (11.6-14.6); RBC Distribution Width SD 41.8 fl (35.1-43.9); Red Blood Count 4.35 M/mm3 (4.2-5.4); White Blood Count 5.5 K/mm3 (4.4-11.0)
[2024-10-19 10:45] LABS: Anion Gap 12 (5-15); BETA-HYDROXYBUTYRATE 0.8 mmol/L (0.0-0.3); BUN 19 mg/dL (4-19); BUN/Creat Ratio 23.1 RATIO (10-20); Calcium,Total 9.3 mg/dL (7.6-11.0); Carbon Dioxide 23.3 mmol/L (21.0-32.0); Chloride 101 mmol/L (98-108); Creatinine, Serum 0.83 mg/dL (0.70-1.20); EST Glomerular Filtration Rate 72 (>60); Estimated Creatinine Clearance 79.68 ml/min (50-250); Glucose 334 mg/dL (70-99); Potassium 4.5 mmol/L (3.3-5.1); Sodium Level 136 mmol/L (133-145)
[2024-10-19 11:19] LABS: Bacteria 0 SEEN /hpf (None Seen); Mucous, Urine 0 SEEN /hpf (<or=2+); Red Blood Cells-Urine 0 SEEN /hpf (0-5); Squamous Epithelial Cells - UA 0 SEEN /hpf (5-10)
[2024-10-19 11:20] LABS: Color, Urine Yellow (Yellow); Glucose, Dipstick 1000 mg/dl (Normal); Ketone-Dipstick 50 mg/dl (Negative); Leukocyte Esterase-Dipstick 25 /ul (Negative); Nitrite-Dipstick Negative (Negative); Occult Blood-Urine 10 /ul (Negative); Protein-Dipstick Negative (Negative); Specific Gravity, Urine 1.015 (1.002-1.030); Urine Bilirubin Dipstick Negative (Negative); Urine Clarity Clear (Clear); Urine Urobilinogen Normal (Normal)
[2024-10-19 11:26] LABS: White Blood Cells 0-5 SEEN /hpf (0-5)
[2024-10-19 12:03] VITALS: BP 149/77; PULSE 77; RESP 16; O2SAT 97
[2024-10-19 12:20] LABS: Bedside Glucose 320 mg/dL (74-106)
[2024-10-19 12:41] VITALS: BP 141/78; PULSE 73; RESP 14; TEMP 36.6; O2SAT 97
== END 2024-10-19 12:42 | disposition home or self-care (01) ==
PROVIDERS: Emergency Provider Emergency Medicine; PCP Internal Medicine; Visit Provider Emergency Medicine
DX: E11.65 Type 2 diabetes mellitus with hyperglycemia (principal); M79.652 Pain in left thigh; M70.62 Trochanteric bursitis, left hip; G47.33 Obstructive sleep apnea (adult) (pediatric); E66.9 Obesity, unspecified; Z86.718 Personal history of other venous thrombosis and embolism; Z87.891 Personal history of nicotine dependence
CPT/HCPCS: 73502; 80048; 81001; 82010; 82962; 85025; 96374; 99283; A4216

== ENCOUNTER 2024-10-24 20:22 | Emergency (ER) | payer MEDICARE, SELFPAY ==
[2024-10-24 20:23] VITALS: BP 157/61; PULSE 72; RESP 17; TEMP 35.7; O2SAT 97
[2024-10-24 20:50] VITALS: BMI 46.0
--- NOTE | 2024-10-24 20:55 | US_ITS ---
PROCEDURE: VENOUS DUPLEX IMAG/LIMITED/UNI 10/24/2024 REASON FOR EXAM: Leg pain F 79 y/o TECHNIQUE: Grayscale color flow and doppler analysis of the lower extremity. COMPARISON: None FINDINGS: There is no intraluminal echogenicity to suggest the presence of a deep venous thrombosis. Appropriate respiratory variation, augmentation and venous compression is noted. US/Venous Duplex Imag/Limited/Uni IMPRESSION: No deep venous thrombosis identified in the left lower extremity. Reading [facility]
--- NOTE | 2024-10-24 21:19 | ED.VIS.LOWEX ---
HPI History of Present Illness Chief Complaint: Lower Extremity Injury Informant: patient and spouse/S.O. Narrative Narrative: Towards the ED with spouse seen 5 days ago pain in the left hip. States diagnosed with bursitis in the ED. She had no trauma. Today she noted bruising and was concerned. Pain has been the same. History of DVT. She does not take any blood thinners states intermittent aspirin use last use 2 days ago.History of diabetes with Charcot joints. Wears splints to lower extremities. Prior similar symptoms: Yes PFSH [facility] Medical History THAIS (obstructive sleep apnea) Hyperglycemia due to type 2 diabetes mellitus Palpitations Sinus bradycardia Abnormal EKG Essential hypertension Premature atrial contractions Charcot's joint of left foot Asthma GERD (gastroesophageal reflux disease) History of DVT (deep vein thrombosis) Bimalleolar ankle fracture Paroxysmal SVT (supraventricular tachycardia) Premature ventricular contraction Hyperlipidemia Diabetes mellitus, type II Home Medications ?Medication ?Instructions ?Recorded ?Last Taken ?Type aspirin 81 mg tablet,delayed 81 mg PO DAILY heart health 11/24/17 02/06/24 History release ramipril 10 mg capsule 10 mg PO BID HEART 01/19/19 02/06/24 History cholecalciferol (vitamin D3) 1,250 1,250 mcg PO QWEEK SUPPLEMENT 12/03/19 02/05/24 History mcg (50,000 unit) capsule furosemide 20 mg tablet 20 mg PO DAILY PRN water pill 01/22/21 Unknown History budesonide-formoterol HFA 160 2 puff inhalation BID ASTHMA 12/21/21 02/06/24 History mcg-4.5 mcg/actuation aerosol inhaler zolpidem 5 mg tablet 2.5 mg PO QHS PRN Insomnia 02/11/22 Unknown History insulin lispro 100 unit/mL 6 unit subcut TIDCM dm 06/22/22 02/06/24 History subcutaneous solution omeprazole magnesium 20 mg 20 mg PO DAILY GERD 06/22/22 02/06/24 History tablet,delayed release (Prilosec OTC) amlodipine 10 mg tablet 5 mg PO DAILY 10/01/23 02/06/24 History metoprolol tartrate 50 mg tablet 25 mg PO Q12H heart rate, BP 10/01/23 02/06/24 History blood sugar diagnostic (OneTouch 02/06/24 Unknown History Ultra Test strips) benzonatate 100 mg capsule 100 mg PO TID 06/13/24 Unknown History insulin glargine 100 unit/mL (3 20 unit subcut QHS 06/13/24 Unknown History mL) subcutaneous pen (Lantus Solostar U-100 Insulin) mometasone 0.1 % topical cream 1 applic topical QDAY 06/13/24 Unknown History nitrofurantoin 100 mg capsule 100 mg PO BID 06/13/24 Unknown History Allergy/AdvReac Type Severity Reaction Status Date / Time hydromorphone Allergy Severe Anaphylaxis Verified 10/24/24 20:28 tramadol Allergy Severe Anaphylaxis Verified 10/24/24 20:28 amiodarone Allergy Intermediate Swelling Verified 10/24/24 20:28 [place] And Derivatives Allergy Intermediate Hives Verified 10/24/24 20:28 morphine Allergy Intermediate confusion Verified 10/24/24 20:28 moxifloxacin Allergy Intermediate Shortness Verified 10/24/24 20:28 of breath nabumetone Allergy Intermediate damaged Verified 10/24/24 20:28 kidney penicillin G Allergy Intermediate TURNS BLUE Verified 10/24/24 20:28 propoxyphene Allergy Intermediate PT UNSURE Verified 10/24/24 20:28 OF REACTION amlodipine Allergy Mild Abd Verified 10/24/24 20:28 cramps/diarrhea desloratadine Allergy Mild headache Verified 10/24/24 20:28 glutamine (From [place] Allergy Mild Itching Verified 10/24/24 20:28 (ascorbate sodium)) herbal complex no.124 (From Allergy Mild Itching Verified 10/24/24 20:28 [place] (ascorbate sodium)) hydrocodone (From [place]) Allergy Mild dystonia Verified 10/24/24 20:28 lysine HCl (From [place] Allergy Mild Itching Verified 10/24/24 20:28 (ascorbate sodium)) multivitamin with minerals Allergy Mild Itching Verified 10/24/24 20:28 (From [place] (ascorbate sodium)) pravastatin Allergy Unknown unknown Verified 10/24/24 20:28 rosuvastatin (From Crestor) Allergy Unknown myalgias Verified 10/24/24 20:28 simvastatin Allergy Unknown unknown Verified 10/24/24 20:28 escitalopram Allergy Other Verified 10/24/24 20:28 hydrochlorothiazide Allergy Other Verified 10/24/24 20:28 Brkegqi-KMH-AyQ Reductase AdvReac Severe myalgias Verified 10/24/24 20:28 Inhibitor (Yhdenaa-Biq-Qpp Reductase Inhibitor) amoxicillin (From Augmentin) AdvReac Other Verified 10/24/24 20:28 clavulanic acid (From AdvReac Other Verified 10/24/24 20:28 Augmentin) codeine AdvReac Nausea Verified 10/24/24 20:28 naproxen (From Naprosyn) AdvReac Nausea Verified 10/24/24 20:28 oseltamivir (From Tamiflu) AdvReac HALLUCINATI Verified 10/24/24 20:28 ONS Family History Mother Aortic stenosis Presence of permanent cardiac pacemaker Surgical History History of herniorrhaphy Status post ORIF of fracture of ankle History of tonsillectomy History of cholecystectomy Social History household members: spouse Smoking Status: Former smoker alcohol intake: never substance use type: does not use caffeine: Yes Type: coffee Number of servings: 3 ROS ROS ED Constitutional Constitutional ED: Denies chills, fever(s) or sweats ENT ENT ED: Denies sore throat Cardiovascular Cardiovascular: Denies chest pain, leg edema, palpitations or racing heartbeat Respiratory/Chest Respiratory/Chest: Denies cough, dyspnea or dyspnea on exertion Gastrointestinal Gastrointestinal: Denies abdominal pain, diarrhea, nausea or vomiting Genitourinary Genitourinary ED: Denies dysuria, hematuria or urinary frequency Musculoskeletal Musculoskeletal: Denies back pain, extremity pain or neck pain Integumentary Reports other Details: Bruising thigh left. ; Denies rash or wounds Neurologic Neurologic: Denies headache(s), paresthesias or weakness EXAM Physical Exam Const Vital Signs: 10/24/24 20:23 10/24/24 22:08 Temperature 96.3 F L 98 F Temperature Source Temporal Pulse Rate 72 71 Respiratory Rate 17 18 Blood Pressure 157/61 H 150/60 H Blood Pressure Mean 93 90 Pulse Ox 97 95 Oxygen Delivery Method Room Air Positive well nourished and well developed General Appearance ED: well developed and NAD HEENT Reports moist mucous membranes normocephalic and atraumatic Eyes General Eye ED: Yes normal appearance of both eyes Neck full ROM Chest Wall Chest: Negative for tenderness Resp normal respiratory effort and normal air movement Effort and Inspection: symmetric chest movement; Negative for respiratory distress Cardio regular rate, regular rhythm and no murmurs Peripheral Pulses: pulses 2+ throughout GI normal to inspection, nondistended, normoactive bowel sounds and non-tender Palpation: Negative for guarding or rebound tenderness present Extremity normal to inspection Extremity Narrative: Tenderness left greater trochanteric area no rash or bruising this area. Medial thigh noted bruising along the medial aspect no palpable cords tender in this area. Soft calves. Pulses intact distally. General Extremety ED: Yes tenderness; Negative for edema General Extremity: Negative for edema Neuro oriented x3 and no sensory deficits noted Sensorium / Orientation: awake and alert Skin no rashes or lesions noted and no wounds MDM MDM MDM Narrative Medical decision making narrative: Interventions / MDM: Differential diagnosis: Left thigh ecchymosis Diagnosis considered but do not suspect: DVT however ultrasound negative. My EKG interpretation: N/A Imaging independently reviewed and interpreted by myself: Ultrasound left lower extremity: External documents reviewed: Left hip and pelvis x-ray from 5 days ago osteoarthritis noted. Normal platelets 159 from 5 days ago. Test considered but not ordered:N/A ED course: Patient noting ecchymosis medial aspect of the left thigh tenderness in the area. No calf tenderness. Negative logroll of the lower extremities. This was not noted 5 days ago, will ultrasound for further evaluation. 0: Ultrasound negative for DVT. I discussed bruises which should improve with time. They are reassured on findings. However requesting blood glucose check as she is a diabetic on insulin. 0: Blood glucose 194. No clinical DKA concerns. Re-evaluation: stable Disposition discussed with patient/family/significant other: Patient and significant other Case discussed with consulting clinician: N/A This note was generated with [employer] dictation software. It may contain incorrect words, spelling, and punctuation that were not noted in checking the note before signing. Lab Data Labs: Laboratory Results - last 24 hr 10/24/24 22:05 POC Glucose 194 H Radiography Diagnostic Testing: Clinical Impression(s) from Imaging Studies Venous Duplex 10/24/24 20:55 IMPRESSION: No deep venous thrombosis identified in the left lower extremity. Reading Location: [facility], [facility] Discharge Plan Triage Chief Complaint: Lower Extremity Injury ED Provider: Benjamín Stanford Dx/Rx/DC Orders Clinical Impression: Bruise, History of diabetes mellitus Instructions: Bruises (Contusions) Prescriptions: No Action aspirin 81 mg tablet,delayed release (DR/EC) 81 mg PO DAILY Patient Comments: only takes sometimes cholecalciferol (vitamin D3) 1,250 mcg (50,000 unit) capsule 1,250 mcg PO QWEEK furosemide 20 mg tablet 20 mg PO DAILY PRN (Reason: water pill) insulin lispro 100 unit/mL solution 6 unit subcut TIDCM Protocol: 4. Sliding Scale Insulin High-Med Dosing Condition: 150-199 mg/dl = 2 units Condition: 200-259 mg/dl = 4 units Condition: 260-324 mg/dl = 6 units Condition: 325-374 mg/dl = 8 units Condition: 375-409 mg/dl = 10 units Condition: 410-449 mg/dl = 11 units Condition: Greater than 449 call physician Protocol Text: - Use for Total Daily Dose of Insulin 56-80 units - Patient who are insulin resistant or septic HIGH MEDIUM DOSING ALGORITHM Patient Comments: INJECT 3 TO 10 UNITS SUBCUTANEOUSLY BEFORE MEALS DIRECTED budesonide-formoterol 160-4.5 mcg/actuation HFA aerosol inhaler 2 puff inhalation BID omeprazole magnesium [Prilosec OTC] 20 mg tablet,delayed release (DR/EC) 20 mg PO DAILY mometasone 0.1 % cream 1 applic topical QDAY benzonatate 100 mg capsule 100 mg PO TID nitrofurantoin 100 mg capsule 100 mg PO BID Rx Instructions: must administer with a meal/food ramipril 10 MG capsule 10 mg PO BID Patient Comments: TAKE 1 CAPSULE BY MOUTH TWICE DAILY zolpidem 5 mg Tablet 2.5 mg PO QHS PRN (Reason: Insomnia) metoprolol tartrate 50 mg tablet 25 mg PO Q12H Patient Comments: takes half tablet in morning and night amlodipine 10 mg tablet 5 mg PO DAILY Patient Comments: takes half tablet/day (DME) OneTouch Ultra Test Strip MISCELLANEOUS Patient Comments: [NO ORIGINAL SIG] insulin glargine [Lantus Solostar U-100 Insulin] 100 unit/mL (3 mL) insulin pen 20 unit subcut QHS Rx Instructions: 20-u Primary Care Provider: Luzma Palencia Referrals: Luzma Palencia MD [Primary Care Provider] - 1 Week Activity Restrictions/Additional Instructions: Left lower leg ultrasound negative for any blood clots. Bruising should heal with time. Follow-up with your doctor. Print Language: Cook Islander Disposition Disposition: Home, Self Care Discharge Date/Time: 10/24/24 22:13
[2024-10-24 22:08] VITALS: BP 150/60; PULSE 71; RESP 18; TEMP 36.6; O2SAT 95
[2024-10-24 22:25] LABS: Bedside Glucose 194 mg/dL (74-106)
== END 2024-10-24 22:13 | disposition home or self-care (01) ==
PROVIDERS: Emergency Provider Emergency Medicine; PCP Internal Medicine; Visit Provider Emergency Medicine
DX: S70.02XA Contusion of left hip, initial encounter (principal); E11.9 Type 2 diabetes mellitus without complications; Z79.4 Long term (current) use of insulin; E78.5 Hyperlipidemia, unspecified; I10 Essential (primary) hypertension; Z79.899 Other long term (current) drug therapy; Z79.82 Long term (current) use of aspirin; Z87.891 Personal history of nicotine dependence; Z86.718 Personal history of other venous thrombosis and embolism; X58.XXXA Exposure to other specified factors, initial encounter
CPT/HCPCS: 82962; 93971; 99282

== ENCOUNTER 2024-11-03 06:54 | Emergency (ER) | payer MEDICARE, SELFPAY ==
[2024-11-03 06:56] VITALS: BP 152/61; PULSE 67; RESP 18; TEMP 36.7; O2SAT 98; BMI 43.2
--- NOTE | 2024-11-03 07:09 | ED.VIS.LOWEX ---
HPI History of Present Illness HPI Narrative: Patient presents with pain in her left thigh that has been getting worse since yesterday. Patient was seen here approximately 10 days ago and had a venous duplex done at that time which was negative for DVT. Patient is concerned that there could have been a clot that has developed in that time. Patient admits to some mild swelling of her thigh. Patient describes her pain as aching. Patient states it is worse whenever there is any pressure put on her thigh. Patient admits to some paresthesias over the medial aspect of her left knee. Patient denies any weakness. Patient denies any trauma or injury. Patient has a history of diabetes and Charcot foot. Patient has minimal ambulation. Chief Complaint: Lower Extremity Injury Informant: patient Onset/Context/Timing Onset: Yesterday Context: Gradual Onset Timing: Continuous Quality of Pain: Aching Location: Left thigh Worsened by: Pressure to the left thigh Relieved by: Nothing Associated Symptoms Associated Symptoms: Positive for Parasthesia; Negative for Weakness or Loss of Funtion PFSH [facility] Medical History THAIS (obstructive sleep apnea) Hyperglycemia due to type 2 diabetes mellitus Palpitations Sinus bradycardia Abnormal EKG Essential hypertension Premature atrial contractions Charcot's joint of left foot Asthma GERD (gastroesophageal reflux disease) History of DVT (deep vein thrombosis) Bimalleolar ankle fracture Paroxysmal SVT (supraventricular tachycardia) Premature ventricular contraction Hyperlipidemia Diabetes mellitus, type II Home Medications ?Medication ?Instructions ?Recorded ?Last Taken ?Type aspirin 81 mg tablet,delayed 81 mg PO DAILY heart health 11/24/17 02/06/24 History release ramipril 10 mg capsule 10 mg PO BID HEART 01/19/19 02/06/24 History cholecalciferol (vitamin D3) 1,250 1,250 mcg PO QWEEK SUPPLEMENT 12/03/19 02/05/24 History mcg (50,000 unit) capsule furosemide 20 mg tablet 20 mg PO DAILY PRN water pill 01/22/21 Unknown History budesonide-formoterol HFA 160 2 puff inhalation BID ASTHMA 12/21/21 02/06/24 History mcg-4.5 mcg/actuation aerosol inhaler zolpidem 5 mg tablet 2.5 mg PO QHS PRN Insomnia 02/11/22 Unknown History insulin lispro 100 unit/mL 6 unit subcut TIDCM dm 06/22/22 02/06/24 History subcutaneous solution omeprazole magnesium 20 mg 20 mg PO DAILY GERD 06/22/22 02/06/24 History tablet,delayed release (Prilosec OTC) amlodipine 10 mg tablet 5 mg PO DAILY 10/01/23 02/06/24 History metoprolol tartrate 50 mg tablet 25 mg PO Q12H heart rate, BP 10/01/23 02/06/24 History blood sugar diagnostic (OneTouch 02/06/24 Unknown History Ultra Test strips) insulin glargine 100 unit/mL (3 24 unit subcut QHS 06/13/24 Unknown History mL) subcutaneous pen (Lantus Solostar U-100 Insulin) mometasone 0.1 % topical cream 1 applic topical QDAY 06/13/24 Unknown History nitrofurantoin 100 mg capsule 100 mg PO BID 06/13/24 Unknown History Allergy/AdvReac Type Severity Reaction Status Date / Time hydromorphone Allergy Severe Anaphylaxis Verified 11/03/24 06:56 tramadol Allergy Severe Anaphylaxis Verified 11/03/24 06:56 amiodarone Allergy Intermediate Swelling Verified 11/03/24 06:56 [place] And Derivatives Allergy Intermediate Hives Verified 11/03/24 06:56 morphine Allergy Intermediate confusion Verified 11/03/24 06:56 moxifloxacin Allergy Intermediate Shortness Verified 11/03/24 06:56 of breath nabumetone Allergy Intermediate damaged Verified 11/03/24 06:56 kidney penicillin G Allergy Intermediate TURNS BLUE Verified 11/03/24 06:56 propoxyphene Allergy Intermediate PT UNSURE Verified 11/03/24 06:56 OF REACTION amlodipine Allergy Mild Abd Verified 11/03/24 06:56 cramps/diarrhea desloratadine Allergy Mild headache Verified 11/03/24 06:56 glutamine (From Airborne Allergy Mild Itching Verified 11/03/24 06:56 (ascorbate sodium)) herbal complex no.124 (From Allergy Mild Itching Verified 11/03/24 06:56 [place] (ascorbate sodium)) hydrocodone (From [place]) Allergy Mild dystonia Verified 11/03/24 06:56 lysine HCl (From [place] Allergy Mild Itching Verified 11/03/24 06:56 (ascorbate sodium)) multivitamin with minerals Allergy Mild Itching Verified 11/03/24 06:56 (From [place] (ascorbate sodium)) pravastatin Allergy Unknown unknown Verified 11/03/24 06:56 rosuvastatin (From Crestor) Allergy Unknown myalgias Verified 11/03/24 06:56 simvastatin Allergy Unknown unknown Verified 11/03/24 06:56 escitalopram Allergy Other Verified 11/03/24 06:56 hydrochlorothiazide Allergy Other Verified 11/03/24 06:56 Ghqxlnt-QXR-MfA Reductase AdvReac Severe myalgias Verified 11/03/24 06:56 Inhibitor (Hetvnpu-Swx-Rhj Reductase Inhibitor) amoxicillin (From Augmentin) AdvReac Other Verified 11/03/24 06:56 clavulanic acid (From AdvReac Other Verified 11/03/24 06:56 Augmentin) codeine AdvReac Nausea Verified 11/03/24 06:56 naproxen (From Naprosyn) AdvReac Nausea Verified 11/03/24 06:56 oseltamivir (From Tamiflu) AdvReac HALLUCINATI Verified 11/03/24 06:56 ONS Family History Mother Aortic stenosis Presence of permanent cardiac pacemaker Surgical History History of herniorrhaphy Status post ORIF of fracture of ankle History of tonsillectomy History of cholecystectomy Social History household members: spouse Smoking Status: Former smoker alcohol intake: never substance use type: does not use caffeine: Yes Type: coffee Number of servings: 3 ROS ROS ED Constitutional Constitutional ED: Denies chills or fever(s) Eyes Eyes: Denies blurry vision or change in vision ENT ENT ED: Denies rhinorrhea or sore throat Cardiovascular Cardiovascular: Denies chest pain or palpitations Respiratory/Chest Respiratory/Chest: Denies cough or dyspnea Gastrointestinal Gastrointestinal: Denies nausea or vomiting Genitourinary Genitourinary ED: Denies dysuria or hematuria Musculoskeletal Musculoskeletal: Reports neck pain; Denies back pain Integumentary Denies abscess or rash Neurologic Neurologic: Denies headache(s) or weakness Allergic/Immunologic Allergic/Immunologic ED: Denies mouth swelling or urticaria EXAM Physical Exam Const Vital Signs: 11/03/24 06:56 11/03/24 08:55 11/03/24 10:00 Temperature 98.1 F Temperature Source Oral Pulse Rate 67 64 75 Respiratory Rate 18 18 Blood Pressure 152/61 H 145/65 H 144/69 H Blood Pressure Mean 91 91 94 Pulse Ox 98 96 99 Oxygen Delivery Method Room Air Room Air Positive well nourished and well developed Constitutional Narrative: BMI is 43.2 General Appearance ED: well developed and NAD HEENT Reports moist mucous membranes normocephalic and atraumatic Neck full ROM and supple Extremity Extremity Narrative: There is tenderness over the medial aspect of the left thigh. There is some ecchymosis noted. There is no deformity noted. Range of motion is slightly limited in all motions of the left hip and thigh secondary to pain. Pedal pulses are equal bilaterally. Sensation was intact to light touch in all digits. Capillary refill was less than 2 seconds in all digits. Neuro oriented x3, CN's II-XII intact bilaterally, moves all extremities and no sensory deficits noted Sensorium / Orientation: alert Motor Exam: strength 5/5 throughout Psych mental status grossly normal MDM MDM MDM Narrative Medical decision making narrative: Due to the patient's concern for DVT, venous duplex of the left lower extremity will be obtained to assess for DVT. History & Record Review Additional record(s) reviewed:: Prior ED visit and Prior labs Radiography Diagnostic Testing: Venous duplex of the left lower extremity was obtained. There is no evidence of DVT. Treatment and Re-Evaluation Narrative: Patient was advised of her findings. Patient was requesting to have her blood sugar checked. BGT was ordered. Patient was instructed to ice and elevate the left lower extremity. Patient was instructed to follow-up with her primary care physician in 5 to 7 days. Patient and family understood and were agreeable with the plan. All questions were answered. Discharge Plan Triage Chief Complaint: Lower Extremity Injury ED Provider: Zay Juan Dx/Rx/DC Orders Clinical Impression: Contusion of left thigh, Essential hypertension Instructions: ED Soft Tissue Contusion Prescriptions: No Action aspirin 81 mg tablet,delayed release (DR/EC) 81 mg PO DAILY Patient Comments: only takes sometimes cholecalciferol (vitamin D3) 1,250 mcg (50,000 unit) capsule 1,250 mcg PO QWEEK furosemide 20 mg tablet 20 mg PO DAILY PRN (Reason: water pill) insulin lispro 100 unit/mL solution 6 unit subcut TIDCM Protocol: 4. Sliding Scale Insulin High-Med Dosing Condition: 150-199 mg/dl = 2 units Condition: 200-259 mg/dl = 4 units Condition: 260-324 mg/dl = 6 units Condition: 325-374 mg/dl = 8 units Condition: 375-409 mg/dl = 10 units Condition: 410-449 mg/dl = 11 units Condition: Greater than 449 call physician Protocol Text: - Use for Total Daily Dose of Insulin 56-80 units - Patient who are insulin resistant or septic HIGH MEDIUM DOSING ALGORITHM Patient Comments: INJECT 3 TO 10 UNITS SUBCUTANEOUSLY BEFORE MEALS DIRECTED budesonide-formoterol 160-4.5 mcg/actuation HFA aerosol inhaler 2 puff inhalation BID omeprazole magnesium [Prilosec OTC] 20 mg tablet,delayed release (DR/EC) 20 mg PO DAILY mometasone 0.1 % cream 1 applic topical QDAY nitrofurantoin 100 mg capsule 100 mg PO BID Rx Instructions: must administer with a meal/food ramipril 10 MG capsule 10 mg PO BID Patient Comments: TAKE 1 CAPSULE BY MOUTH TWICE DAILY zolpidem 5 mg Tablet 2.5 mg PO QHS PRN (Reason: Insomnia) metoprolol tartrate 50 mg tablet 25 mg PO Q12H Patient Comments: takes half tablet in morning and night amlodipine 10 mg tablet 5 mg PO DAILY Patient Comments: takes half tablet/day (DME) OneTouch Ultra Test Strip MISCELLANEOUS Patient Comments: [NO ORIGINAL SIG] insulin glargine [Lantus Solostar U-100 Insulin] 100 unit/mL (3 mL) insulin pen 24 unit subcut QHS Rx Instructions: 20-26u Primary Care Provider: Luzma Palencia Referrals: Luzma Palencia MD [Primary Care Provider] - 5-7 Days Print Language: Tajik Disposition Disposition: Home, Self Care
--- NOTE | 2024-11-03 07:29 | VDLE_ITS ---
Reason For Study Reason For Study: LLE Pain RIGHT LEFT CFV is compressible, spontaneous, phasic, competent GSV is normal. and demonstrates normal augmentation. CFV is compressible, spontaneous, phasic, competent, Procedure and demonstrates normal augmentation. This is a venous duplex using B-mode, color flow and FV is compressible, spontaneous, phasic, competent spectral Doppler. and demonstrates normal augmentation. Exam performed portable in ED. POP V is compressible, spontaneous, phasic, competent The exam was diagnostic. and demonstrates normal augmentation. A preliminary report was called and/or faxed to ED T/P Trunk is compressible. 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 PTV is compressible. LT PerV is compressible. VL/Venous Duplex US, Unilateral Interpretation Summary Deep veins of the left lower extremity are patent and compressible segmentally. There is no evidence of left lower extremity deep vein thrombosis. Valvular competence appears intact within the p roximal deep venous system on the left . The left great saphenous vein appears patent and compressible segmentally. The right common femoral vein is patent and compressible . Ordering Physician: Zay Juan Referring Physician: Luzma Palencia Performed By: Juvencio Yoder RVT
[2024-11-03 08:55] VITALS: BP 145/65; PULSE 64; RESP 18; O2SAT 96
[2024-11-03 10:00] VITALS: BP 144/69; PULSE 75; O2SAT 99
[2024-11-03 11:07] VITALS: BP 153/59; PULSE 87; RESP 16; TEMP 36.6; O2SAT 98
[2024-11-03 11:22] LABS: Bedside Glucose 135 mg/dL (74-106)
== END 2024-11-03 11:08 | disposition home or self-care (01) ==
PROVIDERS: Emergency Provider Emergency Medicine; PCP Internal Medicine; Visit Provider Emergency Medicine
DX: S70.12XA Contusion of left thigh, initial encounter (principal); E11.9 Type 2 diabetes mellitus without complications; Z79.4 Long term (current) use of insulin; I10 Essential (primary) hypertension; E78.5 Hyperlipidemia, unspecified; G47.33 Obstructive sleep apnea (adult) (pediatric); Z79.82 Long term (current) use of aspirin; Z79.899 Other long term (current) drug therapy; Z87.891 Personal history of nicotine dependence; Z86.718 Personal history of other venous thrombosis and embolism; X58.XXXA Exposure to other specified factors, initial encounter
CPT/HCPCS: 82962; 93971; 99282

== ENCOUNTER 2024-11-29 21:12 | Emergency (ER) | payer MEDICARE, SELFPAY ==
[2024-11-29 21:13] VITALS: BP 156/66; PULSE 71; RESP 15; TEMP 36.1; O2SAT 97
[2024-11-29 21:15] VITALS: BMI 42.8
--- NOTE | 2024-11-29 21:43 | EX.ED.DYSGE1 ---
HPI History of Present Illness Chief Complaint: Hyperglycemia Narrative Narrative: 79-year-old female past medical history of hypertension, diabetes, on sliding scale insulin presents with her because of elevated blood glucose. She states that she usually takes a sliding scale before she eats. Based on what her blood sugar is at the time. Recently, her blood sugars have been controlled. She was having company and she wanted to take the right amount of insulin because she wanted to spend time with her casts. She states that her and she administered 6 units of insulin at suppertime. She felt as if her blood sugar was dropping, and started frequently checking it. She denies any recent fevers or chills, no nausea or vomiting, no diarrhea. No problems with urination, no dysuria or hematuria. However, she noticed that when she thought her blood sugar was low, was around 125. She then noticed that they started elevating in the 200s, and even as high as in the 250's. She presents with concern of her elevated blood sugar and she states that she can eat when she felt her blood sugar was dropping. No recent illness or cough. [facility] Medical History THAIS (obstructive sleep apnea) Hyperglycemia due to type 2 diabetes mellitus Palpitations Sinus bradycardia Abnormal EKG Essential hypertension Premature atrial contractions Charcot's joint of left foot Asthma GERD (gastroesophageal reflux disease) History of DVT (deep vein thrombosis) Bimalleolar ankle fracture Paroxysmal SVT (supraventricular tachycardia) Premature ventricular contraction Hyperlipidemia Diabetes mellitus, type II Home Medications ?Medication ?Instructions ?Recorded ?Last Taken ?Type ramipril 10 mg capsule 10 mg PO BID HEART 01/19/19 02/06/24 History cholecalciferol (vitamin D3) 1,250 1,250 mcg PO QWEEK SUPPLEMENT 12/03/19 02/05/24 History mcg (50,000 unit) capsule budesonide-formoterol HFA 160 2 puff inhalation BID ASTHMA 12/21/21 02/06/24 History mcg-4.5 mcg/actuation aerosol inhaler zolpidem 5 mg tablet 2.5 mg PO QHS PRN Insomnia 02/11/22 Unknown History insulin lispro 100 unit/mL 6 unit subcut TIDCM dm 06/22/22 02/06/24 History subcutaneous solution omeprazole magnesium 20 mg 20 mg PO DAILY GERD 06/22/22 02/06/24 History tablet,delayed release (Prilosec OTC) amlodipine 10 mg tablet 5 mg PO DAILY 10/01/23 02/06/24 History metoprolol tartrate 50 mg tablet 25 mg PO Q12H heart rate, BP 10/01/23 02/06/24 History blood sugar diagnostic (OneTouch 02/06/24 Unknown History Ultra Test strips) insulin glargine 100 unit/mL (3 24 unit subcut QHS 06/13/24 Unknown History mL) subcutaneous pen (Lantus Solostar U-100 Insulin) mometasone 0.1 % topical cream 1 applic topical QDAY 06/13/24 Unknown History aspirin 81 mg tablet,delayed 81 mg PO DAILY PRN heart health 11/15/24 Unknown History release furosemide 20 mg tablet 10 mg PO DAILY water pill 11/15/24 Unknown History Allergy/AdvReac Type Severity Reaction Status Date / Time hydromorphone Allergy Severe Anaphylaxis Verified 11/29/24 21:13 tramadol Allergy Severe Anaphylaxis Verified 11/29/24 21:13 amiodarone Allergy Intermediate Swelling Verified 11/29/24 21:13 [place] And Derivatives Allergy Intermediate Hives Verified 11/29/24 21:13 morphine Allergy Intermediate confusion Verified 11/29/24 21:13 moxifloxacin Allergy Intermediate Shortness Verified 11/29/24 21:13 of breath nabumetone Allergy Intermediate damaged Verified 11/29/24 21:13 kidney penicillin G Allergy Intermediate TURNS BLUE Verified 11/29/24 21:13 propoxyphene Allergy Intermediate PT UNSURE Verified 11/29/24 21:13 OF REACTION amlodipine Allergy Mild Abd Verified 11/29/24 21:13 cramps/diarrhea desloratadine Allergy Mild headache Verified 11/29/24 21:13 glutamine (From Airborne Allergy Mild Itching Verified 11/29/24 21:13 (ascorbate sodium)) herbal complex no.124 (From Allergy Mild Itching Verified 11/29/24 21:13 [place] (ascorbate sodium)) hydrocodone (From [place]) Allergy Mild dystonia Verified 11/29/24 21:13 lysine HCl (From [place] Allergy Mild Itching Verified 11/29/24 21:13 (ascorbate sodium)) multivitamin with minerals Allergy Mild Itching Verified 11/29/24 21:13 (From [place] (ascorbate sodium)) pravastatin Allergy Unknown unknown Verified 11/29/24 21:13 rosuvastatin (From Crestor) Allergy Unknown myalgias Verified 11/29/24 21:13 simvastatin Allergy Unknown unknown Verified 11/29/24 21:13 escitalopram Allergy Other Verified 11/29/24 21:13 hydrochlorothiazide Allergy Other Verified 11/29/24 21:13 oseltamivir (From Tamiflu) AdvReac Severe HALLUCINATI Verified 11/29/24 21:13 ONS Uvyfrnc-PZK-UcD Reductase AdvReac Severe myalgias Verified 11/29/24 21:13 Inhibitor (Mkeqbil-Wij-Fud Reductase Inhibitor) amoxicillin (From Augmentin) AdvReac Other Verified 11/29/24 21:13 clavulanic acid (From AdvReac Other Verified 11/29/24 21:13 Augmentin) codeine AdvReac Nausea Verified 11/29/24 21:13 naproxen (From Naprosyn) AdvReac Nausea Verified 11/29/24 21:13 Family History Mother Aortic stenosis Presence of permanent cardiac pacemaker Surgical History History of herniorrhaphy Status post ORIF of fracture of ankle History of tonsillectomy History of cholecystectomy Social History household members: spouse Smoking Status: Former smoker alcohol intake: never substance use type: does not use caffeine: Yes Type: coffee Number of servings: 3 ROS ROS ED ROS Narrative Review of systems positive for elevated blood sugars. Denies fever, chills, nausea, vomiting, diarrhea, abdominal pain, shortness of breath or chest pain, no cough, no dysuria or hematuria. EXAM Physical Exam Narrative Exam Narrative: Afebrile. Vital signs noted. Nontoxic-appearing. Cardiovascular examination feels a regular rate and rhythm. Lungs clear to auscultation bilaterally. Abdomen is soft, nontender, without guarding or rebound. Positive bowel sounds. Neurological examination nonfocal, nonlateralizing. Mild anxiety regarding elevation of blood sugars. Const Vital Signs: 11/29/24 21:13 Temperature 97 F L Temperature Source Temporal Pulse Rate 71 Respiratory Rate 15 Blood Pressure 156/66 H Blood Pressure Mean 96 Pulse Ox 97 Oxygen Delivery Method Room Air MDM MDM MDM Narrative Medical decision making narrative: Differential diagnosis includes but not limited to diabetic ketoacidosis versus [place] versus hyperglycemia associated with diabetes versus uncontrolled blood sugar/blood glucose. Jkemk-zz-abel glucose will be obtained. Blood work will be obtained in the form of CBC, CMP, beta hydroxybutyrate. She will be bolused normal saline 1 L intravenously. Additionally, UA will be checked. I reviewed her laboratory work and she has normal white count of 5.3 with hemoglobin normal at 12.6, hematocrit 38.2, platelet count normal at 153. CMP is remarkable for elevated glucose of 286 but she has a normal anion gap of 11, BUN 18 and creatinine 0.82. Sodium normal at 135 and potassium 4.2. Urinalysis does show 15 ketones which I think is nonspecific, nitrate negative and leukocyte Estrace negative, WBC 05. I do not feel antibiotics are indicated. Although her beta hydroxybutyrate is slightly elevated at 1.0, I do not feel she is in diabetic ketoacidosis because of her normal anion gap. She feels well. I do feel that she can be discharged to follow-up and that she does not require admission at this time. I discussed this with her and her as well. I feel she can be discharged to follow-up. She can take her Lantus at home. She will follow-up with her motel front desk attendant tomorrow. Where of care glucose after 1 L is 265. Once again, as she has not experiencing nausea or vomiting, I feel she can be discharged to take her 22 units of Lantus and follow-up with her motel front desk attendant tomorrow. Patient motivated for discharge. is also agreeable to the plan. Return instructions reviewed. Disposition is discharged home in stable condition. History & Record Review Discussion w/independent historian: Patient and Family Additional record(s) reviewed:: Prior ED visit and Prior labs Lab Data Attestation: I reviewed the patient's lab results. Labs: Laboratory Results - last 24 hr 11/29/24 11/29/24 11/29/24 21:26 22:03 22:05 WBC 5.3 RBC 4.20 Hgb 12.6 Hct 38.2 MCV 91.0 MCH 30.0 MCHC 33.0 RDW Std Deviation 41.7 RDW Coeff of Madalyn 12.6 Plt Count 153 MPV 12.1 H Immature Gran % (Auto) 0.000 Neut % (Auto) 64.8 Lymph % (Auto) 20.6 [place] % (Auto) 7.2 Eos % (Auto) 6.6 H Baso % (Auto) 0.8 Absolute Neuts (auto) 3.4 Absolute Lymphs (auto) 1.09 Nucleated RBC % 0 Sodium 135 Potassium 4.2 Chloride 100 Carbon Dioxide 22.8 Anion Gap 11 BUN 18 Creatinine 0.82 Estim Creat Clear Calc 81.15 Est GFR (MDRD) Non-Af 73 BUN/Creatinine Ratio 21.6 H Glucose 286 H Calcium 9.0 Total Bilirubin 0.72 AST 23 ALT 15 Alkaline Phosphatase 75 Total Protein 6.5 Albumin 3.8 Globulin 2.7 Albumin/Globulin Ratio 1.4 b-Hydroxybutyric mmol/L 1.0 Urine Color Straw Urine Clarity Clear Urine pH 6.0 Ur Specific [place] 1.015 Urine Protein 15 H Urine Glucose (UA) 50 H Urine Ketones 15 H Urine Occult Blood Negative Urine Nitrite Negative Urine Bilirubin Negative Urine Urobilinogen Normal Ur Leukocyte Esterase Negative Urine RBC 0 SEEN Urine WBC 0-5 SEEN Ur Squamous Epith Cells 0-5 SEEN Urine Bacteria 0 SEEN Urine Mucus 0 SEEN POC Glucose 275 H Discharge Plan Triage Chief Complaint: Hyperglycemia ED Provider: Serg Solis Dx/Rx/DC Orders Clinical Impression: Hyperglycemia, Essential hypertension, Hyperglycemia due to type 2 diabetes mellitus Instructions: ED Diabetic Hyperglycemia Prescriptions: No Action aspirin 81 mg tablet,delayed release (DR/EC) 81 mg PO DAILY PRN (Reason: heart health) Patient Comments: only takes sometimes cholecalciferol (vitamin D3) 1,250 mcg (50,000 unit) capsule 1,250 mcg PO QWEEK insulin lispro 100 unit/mL solution 6 unit subcut TIDCM Protocol: 4. Sliding Scale Insulin High-Med Dosing Condition: 150-199 mg/dl = 2 units Condition: 200-259 mg/dl = 4 units Condition: 260-324 mg/dl = 6 units Condition: 325-374 mg/dl = 8 units Condition: 375-409 mg/dl = 10 units Condition: 410-449 mg/dl = 11 units Condition: Greater than 449 call physician Protocol Text: - Use for Total Daily Dose of Insulin 56-80 units - Patient who are insulin resistant or septic HIGH MEDIUM DOSING ALGORITHM Patient Comments: INJECT 3 TO 10 UNITS SUBCUTANEOUSLY BEFORE MEALS DIRECTED furosemide 20 mg tablet 10 mg PO DAILY budesonide-formoterol 160-4.5 mcg/actuation HFA aerosol inhaler 2 puff inhalation BID omeprazole magnesium [Prilosec OTC] 20 mg tablet,delayed release (DR/EC) 20 mg PO DAILY mometasone 0.1 % cream 1 applic topical QDAY ramipril 10 MG capsule 10 mg PO BID Patient Comments: TAKE 1 CAPSULE BY MOUTH TWICE DAILY zolpidem 5 mg Tablet 2.5 mg PO QHS PRN (Reason: Insomnia) metoprolol tartrate 50 mg tablet 25 mg PO Q12H Patient Comments: takes half tablet in morning and night amlodipine 10 mg tablet 5 mg PO DAILY Patient Comments: takes half tablet/day (DME) OneTouch Ultra Test Strip MISCELLANEOUS Patient Comments: [NO ORIGINAL SIG] insulin glargine [Lantus Solostar U-100 Insulin] 100 unit/mL (3 mL) insulin pen 24 unit subcut QHS Rx Instructions: 20-26u Primary Care Provider: Luzma Palencia Referrals: Luzma Palencia MD [Primary Care Provider] - Activity Restrictions/Additional Instructions: Follow-up with your motel front desk attendant tomorrow. Call them with a log of your blood sugars as you have been. Keep a log of your blood sugars. Return with fever, chills, nausea, vomiting, abdominal pain, new or worsening symptoms. Print Language: [place]i Disposition Disposition: Home, Self Care
[2024-11-29 21:48] LABS: Bedside Glucose 275 mg/dL (74-106)
[2024-11-29] MEDS: 0.9% Normal Saline (1000mL) 1,000 ML 999 ML IV (22:09)
[2024-11-29 22:14] LABS: Absolute Lymphocyte Count 1.09 X10^3/uL (0.83-4.51); Absolute Neutrophil Count 3.4 X10^3/uL (2.0-7.7); Basophil# 0.04 X10^3/uL; Basophil% 0.8 % (0-1); Eosinophil# 0.35 X10^3/uL; Eosinophils% 6.6 % (0-5); Hematocrit 38.2 % (37-47); Hemoglobin 12.6 g/dL (12.0-15.0); Lymphocyte # 1.09 X10^3/ul (0.83-4.51); Lymphocyte % 20.6 % (19-41); Mean Platelet Vol. 12.1 fl (6.2-12.0); Monocyte# 0.38 X10^3/uL; Monocyte% 7.2 % (0-10); NRBC Flagged by Analyzer 0 % (0-5); Neutrophil # 3.44 X10^3/uL (2.7-7.7); Neutrophil % 64.8 % (47-70); Platelet Count 153 K/mm3 (150-450); RBC Distribution Width CV 12.6 % (11.6-14.6); RBC Distribution Width SD 41.7 fl (35.1-43.9); White Blood Count 5.3 K/mm3 (4.4-11.0)
[2024-11-29 22:24] LABS: Bacteria 0 SEEN /hpf (None Seen); Mucous, Urine 0 SEEN /hpf (<or=2+); Red Blood Cells-Urine 0 SEEN /hpf (0-5)
[2024-11-29 22:26] LABS: Color, Urine Straw (Yellow); Glucose, Dipstick 50 mg/dl (Normal); Ketone-Dipstick 15 mg/dl (Negative); Leukocyte Esterase-Dipstick Negative /ul (Negative); Nitrite-Dipstick Negative (Negative); Occult Blood-Urine Negative /ul (Negative); Protein-Dipstick 15 mg/dl (Negative); Specific Gravity, Urine 1.015 (1.002-1.030); Urine Bilirubin Dipstick Negative (Negative); Urine Clarity Clear (Clear); Urine Urobilinogen Normal (Normal)
[2024-11-29 22:32] LABS: ALB/GLOB Ratio 1.4 RATIO (0.9-2.4); AST(SGOT) 23 U/L (<=31); Alanine Aminotransfer ALT/SGPT 15 U/L (<=34); Albumin, Serum 3.8 g/dL (3.4-4.8); Alkaline Phosphatase 75 U/L (35-104); Anion Gap 11 (5-15); BUN 18 mg/dL (4-19); BUN/Creat Ratio 21.6 RATIO (10-20); Carbon Dioxide 22.8 mmol/L (21.0-32.0); Chloride 100 mmol/L (98-108); Creatinine, Serum 0.82 mg/dL (0.70-1.20); EST Glomerular Filtration Rate 73 (>60); Estimated Creatinine Clearance 81.15 ml/min (50-250); Globulin 2.7 g/dL (2.2-4.2); Glucose 286 mg/dL (70-99); Potassium 4.2 mmol/L (3.3-5.1); Protein, Total 6.5 g/dL (5.9-8.4); Sodium Level 135 mmol/L (133-145); Total Bilirubin 0.72 mg/dL (0.00-1.30)
[2024-11-29 22:57] LABS: Squamous Epithelial Cells - UA 0-5 SEEN /hpf (5-10); White Blood Cells 0-5 SEEN /hpf (0-5)
[2024-11-29 23:34] VITALS: BP 157/69; PULSE 90; RESP 18; TEMP 36.7; O2SAT 98
[2024-11-29 23:37] LABS: Bedside Glucose 265 mg/dL (74-106)
== END 2024-11-29 23:35 | disposition home or self-care (01) ==
PROVIDERS: Emergency Provider Emergency Medicine; PCP Internal Medicine; Visit Provider Emergency Medicine
DX: E11.65 Type 2 diabetes mellitus with hyperglycemia (principal); Z79.4 Long term (current) use of insulin; E78.5 Hyperlipidemia, unspecified; I10 Essential (primary) hypertension; G47.33 Obstructive sleep apnea (adult) (pediatric); Z87.891 Personal history of nicotine dependence; Z79.82 Long term (current) use of aspirin; Z79.899 Other long term (current) drug therapy; Z86.718 Personal history of other venous thrombosis and embolism
CPT/HCPCS: 80053; 81001; 82010; 82962; 85025; 96360; 99282; A4216

== ENCOUNTER 2024-12-19 15:47 | Emergency (ER) | payer MEDICARE, SELFPAY ==
[2024-12-19 15:49] VITALS: BP 167/63; PULSE 77; RESP 18; TEMP 36.5; O2SAT 99
[2024-12-19 15:55] VITALS: BMI 42.4
--- NOTE | 2024-12-19 17:31 | EX.ED.DYSGE1 ---
HPI History of Present Illness Chief Complaint: Hyperglycemia Informant: patient and spouse/S.O. Onset/Context/Timing Onset: Today Context: Gradual Onset Current Severity: Mild Maximum Severity: Mild Narrative Narrative: 79-year-old female history of insulin-dependent diabetes, hypertension DVT. Took her blood sugar today was 217. Drank a bunch of water came down to 156. She was concerned it was coming down too quickly so then she ate a snack. Sugar again was over 200. She came in. She denies any nausea vomiting diarrhea. Denies any dysuria. Denies any complaints. She was just concerned with her blood sugar. Currently feels fine. She was seen here in the middle of November labs were unremarkable at that time with blood sugar 286. Prior similar symptoms: Yes Recent Illness/Hospitalization: No PFSH PFS Medical History THAIS (obstructive sleep apnea) Hyperglycemia due to type 2 diabetes mellitus Palpitations Sinus bradycardia Abnormal EKG Essential hypertension Premature atrial contractions Charcot's joint of left foot Asthma GERD (gastroesophageal reflux disease) History of DVT (deep vein thrombosis) Bimalleolar ankle fracture Paroxysmal SVT (supraventricular tachycardia) Premature ventricular contraction Hyperlipidemia Diabetes mellitus, type II Home Medications ?Medication ?Instructions ?Recorded ?Last Taken ?Type ramipril 10 mg capsule 10 mg PO BID HEART 01/19/19 02/06/24 History cholecalciferol (vitamin D3) 1,250 1,250 mcg PO QWEEK SUPPLEMENT 12/03/19 02/05/24 History mcg (50,000 unit) capsule budesonide-formoterol HFA 160 2 puff inhalation BID ASTHMA 12/21/21 02/06/24 History mcg-4.5 mcg/actuation aerosol inhaler zolpidem 5 mg tablet 2.5 mg PO QHS PRN Insomnia 02/11/22 Unknown History insulin lispro 100 unit/mL 6 unit subcut TIDCM dm 06/22/22 02/06/24 History subcutaneous solution omeprazole magnesium 20 mg 20 mg PO DAILY GERD 06/22/22 02/06/24 History tablet,delayed release (Prilosec OTC) amlodipine 10 mg tablet 5 mg PO DAILY 10/01/23 02/06/24 History metoprolol tartrate 50 mg tablet 25 mg PO Q12H heart rate, BP 10/01/23 02/06/24 History blood sugar diagnostic (OneTouch 02/06/24 Unknown History Ultra Test strips) insulin glargine 100 unit/mL (3 24 unit subcut QHS 06/13/24 Unknown History mL) subcutaneous pen (Lantus Solostar U-100 Insulin) mometasone 0.1 % topical cream 1 applic topical QDAY 06/13/24 Unknown History aspirin 81 mg tablet,delayed 81 mg PO DAILY PRN heart health 11/15/24 Unknown History release furosemide 20 mg tablet 10 mg PO DAILY water pill 11/15/24 Unknown History Allergy/AdvReac Type Severity Reaction Status Date / Time hydromorphone Allergy Severe Anaphylaxis Verified 12/19/24 15:49 tramadol Allergy Severe Anaphylaxis Verified 12/19/24 15:49 amiodarone Allergy Intermediate Swelling Verified 12/19/24 15:49 [place] And Derivatives Allergy Intermediate Hives Verified 12/19/24 15:49 morphine Allergy Intermediate confusion Verified 12/19/24 15:49 moxifloxacin Allergy Intermediate Shortness Verified 12/19/24 15:49 of breath nabumetone Allergy Intermediate damaged Verified 12/19/24 15:49 kidney penicillin G Allergy Intermediate TURNS BLUE Verified 12/19/24 15:49 propoxyphene Allergy Intermediate PT UNSURE Verified 12/19/24 15:49 OF REACTION amlodipine Allergy Mild Abd Verified 12/19/24 15:49 cramps/diarrhea desloratadine Allergy Mild headache Verified 12/19/24 15:49 glutamine (From Airborne Allergy Mild Itching Verified 12/19/24 15:49 (ascorbate sodium)) herbal complex no.124 (From Allergy Mild Itching Verified 12/19/24 15:49 [place] (ascorbate sodium)) hydrocodone (From [place]) Allergy Mild dystonia Verified 12/19/24 15:49 lysine HCl (From Airborne Allergy Mild Itching Verified 12/19/24 15:49 (ascorbate sodium)) multivitamin with minerals Allergy Mild Itching Verified 12/19/24 15:49 (From [place]borne (ascorbate sodium)) pravastatin Allergy Unknown unknown Verified 12/19/24 15:49 rosuvastatin (From Crestor) Allergy Unknown myalgias Verified 12/19/24 15:49 simvastatin Allergy Unknown unknown Verified 12/19/24 15:49 escitalopram Allergy Other Verified 12/19/24 15:49 hydrochlorothiazide Allergy Other Verified 12/19/24 15:49 oseltamivir (From Tamiflu) AdvReac Severe HALLUCINATI Verified 12/19/24 15:49 ONS Kqpjdbv-OKW-SyP Reductase AdvReac Severe myalgias Verified 12/19/24 15:49 Inhibitor (Wydmefl-Iyc-Ckn Reductase Inhibitor) amoxicillin (From Augmentin) AdvReac Other Verified 12/19/24 15:49 clavulanic acid (From AdvReac Other Verified 12/19/24 15:49 Augmentin) codeine AdvReac Nausea Verified 12/19/24 15:49 naproxen (From Naprosyn) AdvReac Nausea Verified 12/19/24 15:49 Family History Mother Aortic stenosis Presence of permanent cardiac pacemaker Surgical History History of herniorrhaphy Status post ORIF of fracture of ankle History of tonsillectomy History of cholecystectomy Social History household members: spouse Smoking Status: Former smoker alcohol intake: never substance use type: does not use caffeine: Yes Type: coffee Number of servings: 3 ROS ROS ED ROS Narrative Patient denies recent illness. Constitutional Constitutional ED: Denies chills or fever(s) Eyes Eyes: Denies blurry vision ENT ENT ED: Denies ear pain Cardiovascular Cardiovascular: Denies chest pain Respiratory/Chest Respiratory/Chest: Denies cough or dyspnea Gastrointestinal Gastrointestinal: Denies abdominal pain Genitourinary Genitourinary ED: Denies dysuria or hematuria Musculoskeletal Musculoskeletal: Denies arthralgias Integumentary Denies abscess or Abrasions Neurologic Neurologic: Denies headache(s) Psychiatric Psychiatric: Denies anxiety or depression Endocrine Endocrinology: Denies cold intolerance Hematologic/Lymphatic Hematologic/Lymphatic: Reports none Allergic/Immunologic Allergic/Immunologic ED: Denies mouth swelling, tongue swelling or urticaria EXAM Physical Exam Narrative Exam Narrative: Well-appearing 79-year-old female. Vital signs stable afebrile. H EENT exam pupils round reactive light. Moist mucous membranes. Neck nontender no JVD. Lungs clear to auscultation bilaterally. Heart regular rhythm rate about 75 no murmur. Chest wall ribs nontender. Abdomen soft nontender. Moving all 4 extremities. Calves are nontender without edema or cords. Normal radioactivity technician strength. Normal dorsi plantarflexion. Back nontender. Neurologically she is awake alert. Answering questions following commands. She is mildly anxious. Const Vital Signs: 12/19/24 15:49 12/19/24 16:57 Temperature 97.7 F L Temperature Source Temporal Pulse Rate 77 Respiratory Rate 18 Respiratory Effort Normal Respiratory Pattern Normal Blood Pressure 167/63 H Blood Pressure Mean 97 Pulse Ox 99 Oxygen Delivery Method Room Air Positive well developed; Negative for cachectic, contractures or unkempt General Appearance ED: well developed and NAD; Negative for unkempt, cachectic, contractures, cyanotic, diaphoretic or pallor Nutritional Appearance: Negative for cachectic HEENT Reports moist mucous membranes Eyes PERRL and EOMs intact bilaterally Neck no lymphadenopathy, supple and no JVD Chest Wall inspection of chest normal and palpation of chest normal Resp normal respiratory effort and clear to auscultation bilaterally Cardio regular rate, regular rhythm, S1 normal heart sound, S2 normal heart sound and no murmurs GI normal to inspection, nondistended, normoactive bowel sounds, non-tender, non-distended and no masses Palpation: soft; Negative for tender, guarding or rebound tenderness present Back/Spine no CVA tenderness Extremity normal to inspection General Extremety ED: Negative for edema or tenderness General Extremity: Negative for edema Neuro oriented x3 and CN's II-XII intact bilaterally Sensorium / Orientation: alert; Negative for orientation impaired, lethargic or stuporous Motor Exam: strength 5/5 throughout Psych mental status grossly normal Appearance: Negative for unkempt Attitude: No agitated Mood & Affect: anxious Skin no rashes or lesions noted and no wounds General Skin Exam: Negative for jaundice or pallor Lesions: No lesion noted Rashes: No rashes noted Trauma: Negative for abrasion Wounds: Negative for wounds noted MDM MDM MDM Narrative Medical decision making narrative: Diabetic female and elevated blood sugar at home. It is only 227 here. This is more to do with her anxiety than anything else. I reviewed she had recent labs about 3 weeks ago. They were unremarkable other than elevated blood sugar. She will use her insulin at home as needed. Her exam is benign today. I do not think she needs any further testing. Discharge Plan Triage Chief Complaint: Hyperglycemia ED Provider: Abdulaziz Stratton Dx/Rx/DC Orders Clinical Impression: Hyperglycemia due to diabetes mellitus, Anxiety Instructions: ED Diabetic Hyperglycemia Prescriptions: No Action aspirin 81 mg tablet,delayed release (DR/EC) 81 mg PO DAILY PRN (Reason: heart health) Patient Comments: only takes sometimes cholecalciferol (vitamin D3) 1,250 mcg (50,000 unit) capsule 1,250 mcg PO QWEEK insulin lispro 100 unit/mL solution 6 unit subcut TIDCM Protocol: 4. Sliding Scale Insulin High-Med Dosing Condition: 150-199 mg/dl = 2 units Condition: 200-259 mg/dl = 4 units Condition: 260-324 mg/dl = 6 units Condition: 325-374 mg/dl = 8 units Condition: 375-409 mg/dl = 10 units Condition: 410-449 mg/dl = 11 units Condition: Greater than 449 call physician Protocol Text: - Use for Total Daily Dose of Insulin 56-80 units - Patient who are insulin resistant or septic HIGH MEDIUM DOSING ALGORITHM Patient Comments: INJECT 3 TO 10 UNITS SUBCUTANEOUSLY BEFORE MEALS DIRECTED furosemide 20 mg tablet 10 mg PO DAILY budesonide-formoterol 160-4.5 mcg/actuation HFA aerosol inhaler 2 puff inhalation BID omeprazole magnesium [Prilosec OTC] 20 mg tablet,delayed release (DR/EC) 20 mg PO DAILY mometasone 0.1 % cream 1 applic topical QDAY ramipril 10 MG capsule 10 mg PO BID Patient Comments: TAKE 1 CAPSULE BY MOUTH TWICE DAILY zolpidem 5 mg Tablet 2.5 mg PO QHS PRN (Reason: Insomnia) metoprolol tartrate 50 mg tablet 25 mg PO Q12H Patient Comments: takes half tablet in morning and night amlodipine 10 mg tablet 5 mg PO DAILY Patient Comments: takes half tablet/day (DME) OneTouch Ultra Test Strip MISCELLANEOUS Patient Comments: [NO ORIGINAL SIG] insulin glargine [Lantus Solostar U-100 Insulin] 100 unit/mL (3 mL) insulin pen 24 unit subcut QHS Rx Instructions: 20-26u Primary Care Provider: Luzma Palencia Referrals: Luzma Palencia MD [Primary Care Provider] - As Needed Activity Restrictions/Additional Instructions: Your exam is good today. The labs you had done in the middle of November were good also. Your blood sugar here today was 227. Take your insulin per your sliding scale when you get home. Print Language: [place] Disposition Disposition: Home, Self Care
[2024-12-19 17:46] VITALS: BP 167/63; PULSE 88; RESP 16; TEMP 36.5; O2SAT 99
[2024-12-19 17:51] LABS: Bedside Glucose 227 mg/dL (74-106)
== END 2024-12-19 17:47 | disposition home or self-care (01) ==
PROVIDERS: Emergency Provider Emergency Medicine; PCP Internal Medicine; Visit Provider Emergency Medicine
DX: E11.65 Type 2 diabetes mellitus with hyperglycemia (principal); F41.9 Anxiety disorder, unspecified; G47.33 Obstructive sleep apnea (adult) (pediatric); Z86.718 Personal history of other venous thrombosis and embolism; Z87.891 Personal history of nicotine dependence
CPT/HCPCS: 82962; 99282

== ENCOUNTER 2025-01-04 19:16 | Emergency (ER) | payer MEDICARE, SELFPAY ==
[2025-01-04] VITALS (8 sets, daily range): BP systolic 124–156; BP diastolic 54–64; PULSE 59–67; RESP 12–26; TEMP 36.6–36.8; O2SAT 93–99
--- NOTE | 2025-01-04 19:27 | EKG12_ITS ---
Test Reason : CP Blood Pressure : */* mmHG Vent. Rate : 65 BPM Atrial Rate : 65 BPM P-R Int : 142 ms QRS Dur : 88 ms QT Int : 410 ms P-R-T Axes : 66 24 45 degrees QTcB Int : 426 ms Normal sinus rhythm Normal ECG Confirmed by Miguel Angel Bosch ([id number]), greeting card editor RHONDA BRADFORD ([id number]) on 01/08/2025 11:43:42 AM Referred By: Confirmed By: Miguel Angel Bosch
--- NOTE | 2025-01-04 19:45 | ED.VIS.CHEST ---
HPI <ALEN Diamond - Last Filed: 01/04/25 22:09> History of Present Illness Chief Complaint: Chest Pain Narrative Narrative: 79-year-old female with PMH of HTN, HLD, DM2, GERD, SVT, THAIS, asthma presents with chest pain that occurred this evening. She ate a salad around 4:30 PM. About an hour later she had seconds of midsternal chest pressure. She then felt a sensation like something dropped in her chest and felt nauseated but did not vomit. Symptoms resolved rather quickly and now she just feels tired. No further chest pain. She denies fever chills or cough. She has had no recent exertional chest pain or shortness of breath. PFSH <ALEN Diamond - Last Filed: 01/04/25 22:09> [facility] Medical History THAIS (obstructive sleep apnea) Hyperglycemia due to type 2 diabetes mellitus Palpitations Sinus bradycardia Abnormal EKG Essential hypertension Premature atrial contractions Charcot's joint of left foot Asthma GERD (gastroesophageal reflux disease) History of DVT (deep vein thrombosis) Bimalleolar ankle fracture Paroxysmal SVT (supraventricular tachycardia) Premature ventricular contraction Hyperlipidemia Diabetes mellitus, type II Home Medications ?Medication ?Instructions ?Recorded ?Last Taken ?Type ramipril 10 mg capsule 10 mg PO BID HEART 01/19/19 02/06/24 History cholecalciferol (vitamin D3) 1,250 1,250 mcg PO QWEEK SUPPLEMENT 12/03/19 02/05/24 History mcg (50,000 unit) capsule budesonide-formoterol HFA 160 2 puff inhalation BID ASTHMA 12/21/21 02/06/24 History mcg-4.5 mcg/actuation aerosol inhaler zolpidem 5 mg tablet 2.5 mg PO QHS PRN Insomnia 02/11/22 Unknown History insulin lispro 100 unit/mL 6 unit subcut TIDCM dm 06/22/22 02/06/24 History subcutaneous solution omeprazole magnesium 20 mg 20 mg PO DAILY GERD 06/22/22 02/06/24 History tablet,delayed release (Prilosec OTC) amlodipine 10 mg tablet 5 mg PO DAILY 10/01/23 02/06/24 History metoprolol tartrate 50 mg tablet 25 mg PO Q12H heart rate, BP 10/01/23 02/06/24 History blood sugar diagnostic (OneTouch 02/06/24 Unknown History Ultra Test strips) insulin glargine 100 unit/mL (3 24 unit subcut QHS 06/13/24 Unknown History mL) subcutaneous pen (Lantus Solostar U-100 Insulin) mometasone 0.1 % topical cream 1 applic topical QDAY 06/13/24 Unknown History aspirin 81 mg tablet,delayed 81 mg PO DAILY PRN heart health 11/15/24 Unknown History release furosemide 20 mg tablet 10 mg PO DAILY water pill 11/15/24 Unknown History Allergy/AdvReac Type Severity Reaction Status Date / Time hydromorphone Allergy Severe Anaphylaxis Verified 01/04/25 19:16 tramadol Allergy Severe Anaphylaxis Verified 01/04/25 19:16 amiodarone Allergy Intermediate Swelling Verified 01/04/25 19:16 [employer] Allergy Intermediate Hives Verified 01/04/25 19:16 morphine Allergy Intermediate confusion Verified 01/04/25 19:16 moxifloxacin Allergy Intermediate Shortness Verified 01/04/25 19:16 of breath nabumetone Allergy Intermediate damaged Verified 01/04/25 19:16 kidney penicillin G Allergy Intermediate TURNS BLUE Verified 01/04/25 19:16 propoxyphene Allergy Intermediate PT UNSURE Verified 01/04/25 19:16 OF REACTION amlodipine Allergy Mild Abd Verified 01/04/25 19:16 cramps/diarrhea desloratadine Allergy Mild headache Verified 01/04/25 19:16 glutamine (From Airborne Allergy Mild Itching Verified 01/04/25 19:16 (ascorbate sodium)) herbal complex no.124 (From Allergy Mild Itching Verified 01/04/25 19:16 Airborne (ascorbate sodium)) hydrocodone (From [place]) Allergy Mild dystonia Verified 01/04/25 19:16 lysine HCl (From Airborne Allergy Mild Itching Verified 01/04/25 19:16 (ascorbate sodium)) multivitamin with minerals Allergy Mild Itching Verified 01/04/25 19:16 (From Airborne (ascorbate sodium)) pravastatin Allergy Unknown unknown Verified 01/04/25 19:16 rosuvastatin (From Crestor) Allergy Unknown myalgias Verified 01/04/25 19:16 simvastatin Allergy Unknown unknown Verified 01/04/25 19:16 escitalopram Allergy Other Verified 01/04/25 19:16 hydrochlorothiazide Allergy Other Verified 01/04/25 19:16 oseltamivir (From Tamiflu) AdvReac Severe HALLUCINATI Verified 01/04/25 19:16 ONS Wjllkzd-[id number]-[id number] Reductase AdvReac Severe myalgias Verified 01/04/25 19:16 Inhibitor (Nnjskhc-Cpc-Bjh Reductase Inhibitor) amoxicillin (From Augmentin) AdvReac Other Verified 01/04/25 19:16 clavulanic acid (From AdvReac Other Verified 01/04/25 19:16 Augmentin) codeine AdvReac Nausea Verified 01/04/25 19:16 naproxen (From Naprosyn) AdvReac Nausea Verified 01/04/25 19:16 Family History Mother Aortic stenosis Presence of permanent cardiac pacemaker Surgical History History of herniorrhaphy Status post ORIF of fracture of ankle History of tonsillectomy History of cholecystectomy Social History (Updated 01/04/25 @ 20:20 by Olga Trimble) household members: spouse housing: house Smoking Status: Former smoker alcohol intake: never substance use type: does not use caffeine: Yes Type: coffee Number of servings: 3 ROS <ALEN Diamond - Last Filed: 01/04/25 22:09> ROS ED ROS Narrative Constitutional: Negative for fever, chills, malaise. CVS: Positive for chest pain. No syncope. Respiratory: Negative for shortness of breath, cough, orthopnea. GI: Negative for abdominal pain, nausea, vomiting, diarrhea. EXAM <ALEN Diamond - Last Filed: 01/04/25 22:09> Physical Exam Narrative Exam Narrative: CONST: Patient sitting in no acute distress. EYES: Normal inspection. NECK: Normal inspection. RESP: No respiratory distress, CTAB. CVS: Regular rate and rhythm, no murmur, no gallop. ABD: Soft and nontender, no guarding or rebound, nondistended. SKIN: Color normal, no rash, warm, dry, intact. EXTREMITIES: Normal appearance, bilateral leg braces on. NEURO: Alert and answering questions appropriately. PSYCH: Normal affect. Const Vital Signs: 01/04/25 19:16 01/04/25 19:27 01/04/25 20:15 Temperature 98.2 F Temperature Source Temporal Pulse Rate 67 Respiratory Rate 26 H Blood Pressure 156/64 H 124/57 H Blood Pressure Mean 94 77 Pulse Ox 99 98 Oxygen Delivery Method Room Air Room Air 01/04/25 20:30 01/04/25 21:00 01/04/25 22:00 Temperature Temperature Source Pulse Rate 61 61 60 Respiratory Rate 13 12 12 Blood Pressure 125/56 H 129/57 H 132/57 H Blood Pressure Mean 75 77 77 Pulse Ox 96 95 95 Oxygen Delivery Method 01/04/25 23:00 01/04/25 23:10 Temperature 98 F Temperature Source Pulse Rate 59 L 64 Respiratory Rate 12 16 Blood Pressure 137/54 H 137/54 H Blood Pressure Mean 77 81 Pulse Ox 93 95 Oxygen Delivery Method <Dr. Zay Juan DO - Last Filed: 01/04/25 23:30> Physical Exam Const Vital Signs: 01/04/25 19:16 01/04/25 19:27 01/04/25 20:15 Temperature 98.2 F Temperature Source Temporal Pulse Rate 67 Respiratory Rate 26 H Blood Pressure 156/64 H 124/57 H Blood Pressure Mean 94 77 Pulse Ox 99 98 Oxygen Delivery Method Room Air Room Air 01/04/25 20:30 01/04/25 21:00 01/04/25 22:00 Temperature Temperature Source Pulse Rate 61 61 60 Respiratory Rate 13 12 12 Blood Pressure 125/56 H 129/57 H 132/57 H Blood Pressure Mean 75 77 77 Pulse Ox 96 95 95 Oxygen Delivery Method 01/04/25 23:00 01/04/25 23:10 Temperature 98 F Temperature Source Pulse Rate 59 L 64 Respiratory Rate 12 16 Blood Pressure 137/54 H 137/54 H Blood Pressure Mean 77 81 Pulse Ox 93 95 Oxygen Delivery Method <Dr. Zay Juan DO - Last Filed: 01/04/25 23:30> Heart Score History: Slightly/Non-Suspicious ECG: Normal Age: >/= 65 years Risk Factors: >/= 3 Risk Factors or History of CAD Troponin: </= Normal Limit Score: 4 MDM <ALEN Diamond - Last Filed: 01/04/25 22:09> MDM MDM Narrative Medical decision making narrative: 79-year-old female was sitting and developed chest heaviness and nausea that lasted a few minutes. She now just feels tired. She appears well and nontoxic. Vital stable. Normal cardiopulmonary exam. Abdomen soft and nontender. Cardiac workup was ordered. CBC and BMP are unremarkable. EKG is normal sinus rhythm without ischemic changes. Troponin is 15 and delta is pending. I reviewed her recent cardiology visit. Her Lexiscan stress test on 06/07/2024 showed a small area of inferolateral reversible ischemia versus artifact. She had a stress test done due to palpitations and does not have anginal symptoms so cardiology recommended medical management and monitoring. Her symptoms today also are very atypical and I feel if her delta troponin is normal she can be discharged home. External records reviewed: 06/07/2024 Echo: Mild LVH, EF 60%, no significant valvular abnormalities. Cynthia scan stress test: Small area of inferolateral reversible ischemia versus artifact. She denied anginal symptoms and the stress test was done due to palpitations so cardiology recommended monitoring and medical management. Lab Data Labs: Laboratory Results - last 24 hr 01/04/25 01/04/25 19:42 21:43 WBC 6.3 RBC 4.07 L Hgb 12.1 Hct 36.1 L MCV 88.7 MCH 29.7 MCHC 33.5 RDW Std Deviation 40.1 RDW Coeff of Madalyn 12.3 Plt Count 193 MPV 12.2 H Immature Gran % (Auto) 0.200 Neut % (Auto) 61.6 Lymph % (Auto) 22.3 Cassia % (Auto) 9.7 Eos % (Auto) 5.7 H Baso % (Auto) 0.5 Absolute Neuts (auto) 3.9 Absolute Lymphs (auto) 1.40 Nucleated RBC % 0 Sodium 140 Potassium 4.0 Chloride 103 Carbon Dioxide 25.6 Anion Gap 11 BUN 23 H Creatinine 0.93 Est GFR (MDRD) Non-Af 63 BUN/Creatinine Ratio 24.4 H Glucose 93 Calcium 9.2 Troponin T High Sens 15 H Troponin T Hi Sens 2 Hr 13 Radiography Diagnostic Testing: Clinical Impression(s) from Imaging Studies Chest X-Ray 01/04/25 19:50 IMPRESSION: No acute cardiopulmonary process. Reading Location: [id number] <Dr. Zay Juan, - Last Filed: 01/04/25 23:30> MDM History & Record Review Additional record(s) reviewed:: Prior outpatient record, Prior ED visit and Prior labs Lab Data Labs: Laboratory Results - last 24 hr 01/04/25 01/04/25 19:42 21:43 WBC 6.3 RBC 4.07 L Hgb 12.1 Hct 36.1 L MCV 88.7 MCH 29.7 MCHC 33.5 RDW Std Deviation 40.1 RDW Coeff of Madalyn 12.3 Plt Count 193 MPV 12.2 H Immature Gran % (Auto) 0.200 Neut % (Auto) 61.6 Lymph % (Auto) 22.3 Cassia % (Auto) 9.7 Eos % (Auto) 5.7 H Baso % (Auto) 0.5 Absolute Neuts (auto) 3.9 Absolute Lymphs (auto) 1.40 Nucleated RBC % 0 Sodium 140 Potassium 4.0 Chloride 103 Carbon Dioxide 25.6 Anion Gap 11 BUN 23 H Creatinine 0.93 Est GFR (MDRD) Non-Af 63 BUN/Creatinine Ratio 24.4 H Glucose 93 Calcium 9.2 Troponin T High Sens 15 H Troponin T Hi Sens 2 Hr 13 Radiography Diagnostic Testing: Clinical Impression(s) from Imaging Studies Chest X-Ray 01/04/25 19:50 IMPRESSION: No acute cardiopulmonary process. Reading Location: [id number] Treatment and Re-Evaluation :: I have personally performed a face to face assessment of the patient and have reviewed the ABIMBOLA Note. I performed a substantive portion of the visit including all aspects of the following. My dumont findings include: History: Patient presents with chest pain that began today. Patient states she had a similar episode yesterday. Patient states it felt like something dropped in her chest. Patient states this lasted a few seconds and then resolved. Patient states she felt nauseated with it but did not vomit. Patient states she took a dose of her Symbicort inhaler which seemed to help. Patient states she felt lightheaded with it. Patient denies any fevers or chills. Patient denies any shortness of breath or cough. Patient denies any palpitations. Exam: Vital signs are stable. Patient is afebrile. Patient is in no acute distress. Oral mucosa is pink and moist. Neck is supple. Trachea is midline. There is no JVD. Heart was regular rate and rhythm. Lungs are clear and equal bilaterally. Abdomen is soft. Bowel sounds are normal. There is no tenderness. Cranial nerves II through XII are intact there are no focal motor or sensory deficits noted. Medical Decision Making: Differential diagnosis includes but is not limited to cardiac dysrhythmia, cardiac ischemia, pneumonia, bronchitis, gastroesophageal reflux disease, electrolyte abnormality, dehydration, and anxiety. EKG will be obtained to assess for cardiac dysrhythmia and cardiac ischemia. Chest x-ray will be obtained to assess for pneumonia or bronchitis. CBC will be obtained to assess for leukocytosis and anemia. Basic metabolic profile will be obtained to assess for electrolyte abnormality and renal function. High-sensitivity troponin will be obtained to assess for cardiac ischemia. 2-hour repeat high-sensitivity troponin will be obtained to assess for ongoing cardiac ischemia. Patient was given aspirin. EKG was obtained. On my independent interpretation, it showed a normal sinus rhythm with a rate of 65. WA interval, QRS interval, and QTc intervals were all normal. Grover was normal. There are no acute ST or T wave changes. PA and lateral chest x-ray was obtained. There are 2 views. On my independent interpretation, lung ramon are clear. There is normal cardiac silhouette. Bony thorax is normal. There is no acute process noted. Radiologist also interpreted the x-ray and agrees. CBC was reviewed and was essentially within normal limits. Basic metabolic profile was reviewed. BUN was slightly elevated at 23. The remainder was within normal limits. Initial high-sensitivity troponin was reviewed and was minimally elevated at 15. 2-hour repeat high-sensitivity troponin was reviewed and was normal at 13. Patient was advised of her findings. Patient is a HEART score of 4. However, since her EKG is normal and her chest pain was only brief, I do not feel the patient needs to be admitted for further evaluation at this time. Patient was instructed to follow-up with her primary care physician in 5 to 7 days. Patient understood and was agreeable with the plan. All questions were answered. Discharge Plan Triage Chief Complaint: Chest Pain ED Midlevel Provider: Amber Martino ED Provider: Zay Juan Dx/Rx/DC Orders Clinical Impression: Chest pain, Essential hypertension Instructions: ED Chest Pain, Uncertain Cause Prescriptions: No Action aspirin 81 mg tablet,delayed release (DR/EC) 81 mg PO DAILY PRN (Reason: heart health) Patient Comments: only takes sometimes cholecalciferol (vitamin D3) 1,250 mcg (50,000 unit) capsule 1,250 mcg PO QWEEK insulin lispro 100 unit/mL solution 6 unit subcut TIDCM Protocol: 4. Sliding Scale Insulin High-Med Dosing Condition: 150-199 mg/dl = 2 units Condition: 200-259 mg/dl = 4 units Condition: 260-324 mg/dl = 6 units Condition: 325-374 mg/dl = 8 units Condition: 375-409 mg/dl = 10 units Condition: 410-449 mg/dl = 11 units Condition: Greater than 449 call physician Protocol Text: - Use for Total Daily Dose of Insulin 56-80 units - Patient who are insulin resistant or septic HIGH MEDIUM DOSING ALGORITHM Patient Comments: INJECT 3 TO 10 UNITS SUBCUTANEOUSLY BEFORE MEALS DIRECTED furosemide 20 mg tablet 10 mg PO DAILY budesonide-formoterol 160-4.5 mcg/actuation HFA aerosol inhaler 2 puff inhalation BID omeprazole magnesium [Prilosec OTC] 20 mg tablet,delayed release (DR/EC) 20 mg PO DAILY mometasone 0.1 % cream 1 applic topical QDAY ramipril 10 MG capsule 10 mg PO BID Patient Comments: TAKE 1 CAPSULE BY MOUTH TWICE DAILY zolpidem 5 mg Tablet 2.5 mg PO QHS PRN (Reason: Insomnia) metoprolol tartrate 50 mg tablet 25 mg PO Q12H Patient Comments: takes half tablet in morning and night amlodipine 10 mg tablet 5 mg PO DAILY Patient Comments: takes half tablet/day (DME) OneTouch Ultra Test Strip MISCELLANEOUS Patient Comments: [NO ORIGINAL SIG] insulin glargine [Lantus Solostar U-100 Insulin] 100 unit/mL (3 mL) insulin pen 24 unit subcut QHS Rx Instructions: 20-26u Primary Care Provider: Luzma Palencia Referrals: Luzma Palencia MD [Primary Care Provider] - Activity Restrictions/Additional Instructions: Today your tests look normal. I recommend you follow-up with your primary care doctor or audio visual manager. If symptoms significantly change or worsen please come back to the ER. Print Language: Angolan Disposition Disposition: Home, Self Care Discharge Date/Time: 01/04/25 23:16
--- NOTE | 2025-01-04 19:50 | RAD_ITS ---
EXAM: XR Chest, 2 Views CLINICAL INDICATION: CHEST PAIN TECHNIQUE: Frontal and lateral views of the chest. COMPARISON: No relevant prior studies available. FINDINGS: LUNGS AND PLEURAL SPACES: Unremarkable. No consolidation. No pneumothorax. HEART: Unremarkable. No cardiomegaly. MEDIASTINUM: Unremarkable. Normal mediastinal contour. BONES/JOINTS: Unremarkable. No acute fracture. RAD/Chest PA and Lateral IMPRESSION: No acute cardiopulmonary process. Reading Location: [id number]
--- OUTSIDE RECORDS SUMMARY | 2025-01-04 19:59 | XMS RPT_ITS | CCD ---
Author Organization [facility] CliniSyid Care Team Providers Care Cocktail Lounge Manager Name Role Phone Lydia Cook Unavailable Unavailable Lydia Cook Unavailable Unavailable Nola RN, Bettina Worrell Unavailable Unavailable Octavio Reza MD Primary Care Provider Dr. Octavio Reza Primary Care Provider Dr. Octavio Reza Referring Provider Herb LOWRY PA Areli Shoemaker Attending Provider Octavio Reza MD Primary Care Provider Octavio Reza MD Primary Care Provider Dr. Octavio Reza Primary Care Provider Dr. Octavio Reza Referring Provider ALEN Gauthier Attending Provider Dr. Vazquez Harvey Emergency Provider Dr. Tawanda Herring Attending Provider Unavailable Dr. Tawanda Herring Admit Provider Unavailable Dr. Tawanda Herring Other Provider Unavailable Dr. Jer Escobedo Attending Provider Dr. Jer Escobedo Other Provider Dr. Mark Castillo Emergency Provider Dr. Krystian Sandoval Provider Dr. Krystian Sandoval Attending Provider Dr. Krystian Sandoval Other Provider Dr. Mei Garcia Attending Provider Dr. Mei Garcia Other Provider Dr. Floresita Howe Other Provider Dr. Jesus Kessler Emergency Provider Koram, Dr. Daisy Sykes Admit Provider Kornatanael, Dr. Daisy Sykes Other Provider Dr. Zay Escalera Attending Provider Dr. Zay Escalera Other Provider Dr. Octavio Reza Primary Care Provider Dr. Octavio Reza Referring Provider Herb LOWRY, PA Areli Shoemaker Attending Provider Dr. Vazquez Harvey Emergency Provider Dr. Tawanda Herring Attending Provider Unavailable Dr. Tawanda Herring Admit Provider Unavailable Dr. Tawnada Herring Other Provider Unavailable Dr. Jer Escobedo Attending Provider Dr. Jer Escobedo Other Provider Dr. Mark Castillo Emergency Provider Dr. Krystian Sandoval Admit Provider Dr. Krystian Sandoval Attending Provider Dr. Krystian Sandoval Other Provider Dr. Mei Garcia Attending Provider Dr. Mei Garcia Other Provider Dr. Floresita Howe Other Provider Dr. Jayden Alberto Attending Provider Dr. Jayden Alberto Referring Provider Dr. Jesus Kessler Emergency Provider Kornatanael, Dr. Daisy Sykes Admit Provider Kornatanael, Dr. Daisy Sykes Other Provider Dr. Zay Escalera Attending Provider Dr. Zay Escalera Other Provider Dr. Octavio Reza Primary Care Provider Slime, Dr. Octavio Zapata Primary Care Provider Slime, Dr. Octavio Zapata Referring Provider Herb LOWRY, PA Areli Shoemaker Attending Provider Dr. Lenin Michaels Attending Provider Dr. Octavio Reza Primary Care Provider Slime, Dr. Octavio Zapata Primary Care Provider Dr. Eliza Cool Attending Provider Dr. Benjamín Stanford Referring Provider Dr. Octavio Reza Referring Provider [facility] TOBACCO STEMMER, TOBACCO STEMMER-Sourav Rowe Attending Provider TAMIKA MORRIS Referring Unavailable OCTAVIO REZA Primary Care Unavailable Octavio Reza MD Primary Care Provider Paneccasio [facility], Charis Unavailable Clinton YING, Federica Rabago Unavailable Cioce CLINICAL LAW PROFESSOR.PLATE SLITTER AND INSPECTOR, Renetta C Unavailable Clinton YING, Federica Rabago Unavailable Grande CLINICAL LAW PROFESSOR.INSIDE HORTICULTURAL SPECIALTY GROWER, Lydia Unavailable Narda CLINICAL LAW PROFESSOR.PLATE SLITTER AND INSPECTOR, Davon Unavailable Narda CLINICAL LAW PROFESSOR.PLATE SLITTER AND INSPECTOR, Davon Monica Unavailable Narda CLINICAL LAW PROFESSOR.PLATE SLITTER AND INSPECTOR, Davon Unavailable Dr. Octavio Reza MD Primary Care Provider Dr. Reyna Monzon DO Attending Provider [phone] Reyna Monzon DO Emergency Provider Dr. Lars Dahl DO Attending Provider Dr. Lars Dahl DO Referring Provider Hesham SANDERS, Dr. Sousa Emergency Provider Areli Gauthier Attending Provider Areli Gauthier Referring Provider Dr. Miguel Angel Bosch MD Attending Provider Areli Gauthier Other Provider [phone] Ashwini JOSE, Dr. Bell Attending Provider Slime JOSE, Dr. Octavio Zapata Referring Provider SharanMelita SANDERS, Dr. Clark [facility]ending [facility] roswellMelita SANDERS, Dr. Clark Emergency Provider Verónica SANDERS, Dr. Lino Emergency Provider Slime JOSE, Dr. Octavio Zapata Primary Care Provider [phone] Hesham SANDERS, Dr. Sousa Attending Provider Hesham SANDERS, Dr. Sousa Referring Provider Hesham SANDERS, Dr. Sousa Emergency Provider Areli Gauthier Attending Provider Areli Gauthier Referring Provider Dr. Miguel Angel Bosch MD Attending Provider Areli Gauthier Other Provider [phone] Ashwini JOSE, Dr. Bell Attending Provider Na SANDERS, Dr. Orellana Attending Provider Dr. Reyna Monzon DO Emergency Provider Dr. Octavio Reza MD Referring Provider SharanMelita SANDERS, Dr. Clark Attending Provider SharanMelita SANDERS, Dr. Clark Emergency Provider Dr. Holland Sanches DO Emergency Provider Viral JOSE, Dr. Cintron Emergency Provider Narda CLINICAL LAW PROFESSOR.PLATE SLITTER AND INSPECTOR, Davon Unavailable Slime JOSE, Dr. Octavio Zapata Primary Care Provider [phone] Hesham SANDERS, Dr. Sousa Attending Provider Hesham SANDERS, Dr. Sousa Emergency Provider Verónica SANDERS, Dr. Lino Attending Provider Viral JOSE, Dr. Cintron Attending Provider Hien SANDERS, Dr. Butts Emergency Provider Slime JOSE, Dr. Octavio Zapata Primary Care Provider Hien SANDERS, Dr. Butts Attending Provider Dr. Zay Juan DO Emergency Provider Slime JOSE, Dr. Octavio Zapata Primary Care Provider Hesham SANDERS, Dr. Sousa Attending Provider Hesham SANDERS, Dr. Sousa Emergency Provider Dr. Zay Juan DO Attending Provider Slime JOSE, Dr. Octavio Zapata Referring Provider Areli Gauthier Attending Provider Serg Solis MD Emergency Provider Harjinder CLINICAL LAW PROFESSOR.INSIDE HORTICULTURAL SPECIALTY GROWER, Lydia Unavailable Dr. Alex Gan MD Attending Provider Dr. Zay Juan DO Referring Provider Serg Solis MD Attending Provider OCTAVIO REZA Primary Care Unavailable SERGO PEREZ Attending Unavailable OCTAVIO REZA Primary Care Unavailable GRANDE, LYDIA Referring Unavailable OCTAVIO REZA Attending Unavailable OCTAVIO REZA Primary Care Unavailable SONIAAMPBEKA, OCTAVIO Jodi Primary Care Unavailable SERGO PEREZ Attending Unavailable TALAMPAS, OCTAVIO D Primary Care Unavailable CIOCE, RENETTA C Attending Unavailable TALAMPAS, OCTAVIO D Primary Care Unavailable ARIANE TESFAYE Attending Unavailable TALAMPAS, OCTAVIO D Primary Care Unavailable DAVON WOLFE Attending Unavailable TALAMPAS, OCTAVIO D Primary Care Unavailable TALAMPAS, OCTAVIO D Primary Care Unavailable JESSEE RENETTA C Referring Unavailable TALAMPAS, OCTAVIO D Primary Care Unavailable CIOCE, RENETTA C Attending Unavailable TALAMPAS, OCATVIO D Primary Care Unavailable TALAMPAS, OCTAVIO D Primary Care Unavailable TALAMPAS, OCTAVIO D Primary Care Unavailable TALAMPAS, OCTAVIO D Referring Unavailable TALAMPAS, OCTAVIO D Primary Care Unavailable TALAMPAS, OCTAVIO D Primary Care Unavailable JEANNINE PERKINS Referring Unavailable JEANNINE PERKINS Attending Unavailable TALAMPAS, OCTAVIO D Primary Care Unavailable JEANNINE PERKINS Referring Unavailable TALAMPAS, OCTAVIO D Primary Care Unavailable CIOCE, RENETTA C Referring Unavailable TALAMPAS, OCTAVIO D Primary Care Unavailable TALAMPAS, OCTAVIO D Attending Unavailable TALAMPAS, OCTAVIO D Primary Care Unavailable TALAMPAS, OCTAVIO D Primary Care Unavailable TALAMPAS, OCTAVIO D Referring Unavailable TALAMPAS, OCTAVIO D Primary Care Unavailable TALAMPAS, OCTAVIO D Primary Care Unavailable SMILEY PRIETO Referring Unavailable TALAMPAS, OCTAVIO D Primary Care Unavailable TALAMPAS, OCTAVIO D Attending Unavailable TALAMPAS, OCTAVIO D Primary Care Unavailable SELF Referring Unavailable TALAMPAS, OCTAVIO D Primary Care Unavailable CIOCE, RENETTA C Referring Unavailable TALAMPAS, OCTAVIO D Primary Care Unavailable TALAMPAS, OCTAVIO D Primary Care Unavailable CIOCE, RENETTA C Attending Unavailable TALAMPAS, OCTAVIO D Primary Care Unavailable LYDIA GRANDE Attending Unavailable TALAMPAS, OCTAVIO D Attending Unavailable TALAMPAS, OCTAVIO D Primary Care Unavailable TALAMPAS, OCTAVIO D Primary Care Unavailable TALAMPAS, OCTAVIO D Primary Care Unavailable Talampas, Octavio D Primary Care Unavailable Jesus Gilliland Attending Unavailable Talampas, Octavio D Primary Care Unavailable Harjinder TOBACCO STEMMER, Lydia Referring Unavailable Grande TOBACCO STEMMER, Lydia Attending Unavailable Talampas, Octavio D Primary Care Unavailable Tierney Francis Attending Unavailable Reyna Monzon Attending Unavailable Talampas, Octavio D Primary Care Unavailable Talampas, Octavio D Primary Care Unavailable Areli Gauthier Attending Unavail able Areli Gauthier Referring Unavail able Talampas, Octavio D Referring Unavailable Areli Gauthier Attending Unavail able Talampas, Octavio D Primary Care Unavailable Miguel Angel Bosch Attending Unavailable Talampas, Octavio D Primary Care Unavailable Areli Gauthier Referring Unavail able Talampas, Octavio D Primary Care Unavailable Talampas, Octavio D Referring Unavailable Miguel Angel Bosch Attending Unavailable Forest Smith Attending Unavailable Talampas, Octavio D Primary Care Unavailable Talampas, Octavio D Primary Care Unavailable Benjamín Stanford Attending Unavailable Talampas, Octavio D Primary Care Unavailable Zay Juan Attending Unavailable Talampas, Octavio D Primary Care Unavailable Serg Solis Attending Unavailable Talampas, Octavio D Primary Care Unavailable Abdulaziz Stratton Attending Unavailable Talampas, Octavio D Primary Care Unavailable Holland Sanches Attending Unavailable Talampas, Octavio D Primary Care Unavailable Areli Gauthier Attending Unavail able Areli Gauthier Referring Unavail able Talampas, Octavio D Primary Care Unavailable Abdulaziz Stratton Attending Unavailable Talampas, Octavio D Primary Care Unavailable Holland Sanches Attending Unavailable Mark Castillo Attending Unavailable Talampas, Octavio D Primary Care Unavailable Lars Dahl Referring Unavailable Lars Dahl Attending Unavailable Talampas, Octavio D Primary Care Unavailable Holland Sanches Attending Unavailable Talampas, Octavio D Primary Care Unavailable Reyna Monzon Attending Unavailable Talampas, Octavio D Primary Care Unavailable Ray Maradiaga Attending Unavailable Talampas, Octavio D Primary Care Unavailable Areli Gauthier Consulting Unavail able Areli Gauthier Referring Unavail able Lars Dahl Attending Unavailable Talampas, Octavio D Primary Care Unavailable Talampas, Octavio D Primary Care Unavailable Eduardo Paz Attending Unavailabl e Lars Dahl Attending Unavailable Talampas, Octavio D Primary Care Unavailable Allergies Allergy Classification Reported Allergen(s) Allergy Type Date of Onset Reaction(s) Facility Acetaminophen / Codeine (2 sources) Acetaminophen / Codeine Drug Allergy 005 Vomiting [facility] Albuterol (2 sources) Albuterol Drug Allergy 014 GI Upset, Vomiting [facility] Work Phone: [phone] aMILoride / hydroCHLOROthiazide (2 sources) aMILoride / hydroCHLOROthiazide Drug Allergy 011 Other: See Comments [facility] Doxycycline (2 sources) Doxycycline Drug Allergy 023 GI Upset [facility] Lysine (2 sources) Lysine Drug Allergy 023 Itching [facility] NSAIDs (2 sources) Naproxen Drug Allergy 005 GI Upset [facility] Work Phone: Oseltamivir (2 sources) Oseltamivir Drug Allergy 024 Mental Status Change [facility] Serotonin Reuptake Inhibitors (SSRIs) (2 sources) Escitalopram Drug Allergy 013 Intolerance [facility] (20 sources) codeine; Translations: [codeine] drug allergy 012 nausea/vomit ing, Nausea [facility] Work Phone: (6 sources) NKA drug allergy 012 [facility] Work Phone: (20 sources) Acetaminophen / Codeine; Translations: [ACETAMINOPHEN-CODEIN E] Drug Allergy 005 Vomiting [facility] Work Phone: (20 sources) Albuterol; Translations: [ALBUTEROL SULFATE] Drug Allergy 014 GI Upset, Vomiting [facility] Work Phone: (20 sources) aMILoride / hydroCHLOROthiazide; Translations: [AMILORIDE-HYDROCHLOR OTHIAZIDE] Drug Allergy 011 Other: See Comments [facility] Work Phone: (20 sources) atorvastatin; Translations: [ATORVASTATIN] Drug Allergy 015 Myalgia [facility] Work Phone: (20 sources) Escitalopram; Translations: [ESCITALOPRAM] Drug Allergy 013 Intolerance [facility] Work Phone: (20 sources) Naproxen; Translations: [NAPROXEN] Drug Allergy 005 GI Upset [facility] Work Phone: (20 sources) Pravastatin; Translations: [PRAVASTATIN] Drug Allergy 017 GI Upset [facility] Work Phone: (20 sources) rosuvastatin; Translations: [ROSUVASTATIN] Drug Allergy 021 Intolerance [facility] Work Phone: (20 sources) Simvastatin; Translations: [SIMVASTATIN] Drug Allergy 017 Myalgia [facility] Work Phone: (5 sources) Albuterol Drug Allergy 022 nausea, vomiting [facility] Work Phone: (20 sources) hydroCHLOROthiazide Drug Allergy 022 Other [facility] (20 sources) Bdougmr-Rwd-Ryd Reductase Inhibitor; Translations: [Hvfquuh-Epu-Qzm Reductase Inhibitor] Propensity to adverse reactions myalgias [facility] (20 sources) Doxycycline; Translations: [DOXYCYCLINE] Drug Allergy 023 GI Upset [facility] Work Phone: (20 sources) Amoxicillin Drug Allergy Other [facility] Comment on above: palpitations (20 sources) Clavulanate Drug Allergy Other [facility] Comment on above: palpitations (4 sources) Acetaminophen Drug Allergy dystonia [facility] (16 sources) Amiodarone Drug Allergy Swelling [facility] Comment on above: SOB (16 sources) amLODIPine Drug Allergy 024 Abd cramps/diarr hea [facility] Comment on above: states she went into a.fib felt awful (4 sources) Ascorbic Acid Drug Allergy Itching [facility] (16 sources) Marienthal fruit Allergy to substance Hives [facility] (16 sources) desloratadine Drug Allergy headache [facility] (16 sources) Glutamine Drug Allergy Itching [facility] (16 sources) HYDROcodone Drug Allergy 03-01-2 024 dystonia [facility] (16 sources) HYDROmorphone Drug Allergy Anaphylaxis [facility] Comment on above: sob (17 sources) Lysine; Translations: [lysine HCl] Drug Allergy 024 Itching [facility] (16 sources) Morphine Drug Allergy 024 confusion [facility] (16 sources) moxifloxacin Drug Allergy Shortness of breath [facility] (16 sources) nabumetone Drug Allergy 024 damaged kidney [facility] (16 sources) Penicillin G Drug Allergy 024 TURNS BLUE [facility] (16 sources) Propoxyphene Drug Allergy 024 PT UNSURE OF REACTION [facility] (16 sources) traMADol Drug Allergy Anaphylaxis [facility] (17 sources) herbal complex no.124; Translations: [herbal complex no.124] Allergy to substance Itching [facility] (17 sources) multivitamin with minerals; Translations: [multivitamin with minerals] Allergy to substance Itching [facility] (20 sources) Oseltamivir; Translations: [OSELTAMIVIR] Drug Allergy 024 Mental Status Change [facility] (20 sources) HMG-CoA reductase inhibitor; Translations: [BVLKUHH-CEJ-KHN REDUCTASE INHIBITORS] Drug Intolerance 021 Myalgia [facility] (20 sources) Lysine; Translations: [LYSINE] Drug Allergy 023 Itching [facility] (1 source) Amiodarone Drug Allergy 025 [facility] (1 source) amLODIPine Drug Allergy 025 [facility] (1 source) Amoxicillin Drug Allergy 025 [facility] (1 source) Clavulanate Drug Allergy 025 [facility] (1 source) desloratadine Drug Allergy 025 [facility] (1 source) Escitalopram Drug Allergy 025 [facility] (1 source) Glutamine Drug Allergy [facility] (1 source) hydroCHLOROthiazide Drug Allergy [facility] (1 source) HYDROcodone Drug Allergy [facility] (1 source) HYDROmorphone Drug Allergy [facility] (1 source) Morphine Drug Allergy [facility] (1 source) moxifloxacin Drug Allergy [facility] (1 source) nabumetone Drug Allergy [facility] (1 source) Naproxen Drug Allergy [facility] (1 source) Oseltamivir Drug Allergy [facility] (1 source) Penicillin Drug Allergy [facility] (1 source) Pravastatin Drug Allergy [facility] (1 source) Propoxyphene Drug Allergy [facility] (1 source) rosuvastatin Drug Allergy [facility] (1 source) Simvastatin Drug Allergy [facility] (1 source) traMADol Drug Allergy [facility] (1 source) Marienthal And Derivatives Drug allergy (disorder) [facility] Medications Current Medications Medication Drug Class(es) Dates Sig (Normalized) Sig (Original) [id number] 200 actuat albuterol 0.09 mg/actuat metered dose inhaler (20 sources) beta2-Adrenergic Agonist Start: 06-11-2024 take 2 puff(s) by inhalation four times daily as needed for wheezing albuterol HFA (PROVENTIL HFA, VENTOLIN HFA) 90 mcg/actuation inhaler Indications: Uncomplicated severe persistent asthma (HCC) Inhale 2 Puffs as instructed four times a day as needed. FOR WHEEZING AND SHORTNESS OF BREATH. 1 Each 1 06/11/2024 Active Start: 07-14-2022 End: 11-28-2023 Albuterol Sulfate (Ventolin Hfa) 90 mcg/actuation HFA aerosol inhaler Discontinued 2 NMA INHALATION 4 times daily as needed for sob 8.5 July 14, 2022 3:20pm November 28, 2023 9:35pm use four times a day for the next seven days, then use every 6 hours as needed for shortness of breath Start: 07-14-2022 End: 11-28-2023 Albuterol Sulfate (Ventolin Hfa) 90 mcg/actuation HFA aerosol inhaler Discontinued 2 PUFF INHALATION 4 times daily 8.5 July 14, 2022 3:20pm November 28, 2023 9:35pm use four times a day for the next seven days, then use every 6 hours as needed for shortness of breath Start: 06-09-2020 End: 06-11-2024 take 2 puff(s) by inhalation four times daily as needed for wheezing albuterol HFA (PROVENTIL HFA, VENTOLIN HFA) 90 mcg/actuation inhaler Indications: Uncomplicated severe persistent asthma Inhale 2 Puffs as instructed four times daily as needed. FOR WHEEZING AND SHORTNESS OF BREATH. 6.7 g 11 06/09/2020 06/11/2024 Discontinued Start: 12-03-2019 End: 07-14-2022 Albuterol Sulfate (Ventolin Hfa) 90 mcg/actuation HFA aerosol inhaler Discontinued 2 NMA INHALATION EVERY 6 HOURS as needed for sob December 03, 2019 12:00am July 14, 2022 3:21pm Start: 12-03-2019 End: 07-14-2022 take 1 puff(s) by inhalation every six hours Albuterol Sulfate (Ventolin Hfa) 90 mcg/actuation HFA aerosol inhaler Discontinued 2 PUFF INHALATION EVERY 6 HOURS December 03, 2019 12:00am July 14, 2022 3:21pm Comment on above: Inhale 2 Puffs as in structed four times daily as needed. FOR WHEEZING AND SHORTNESS OF BREATH. amLODIPine 10 mg oral tablet (20 sources) Dihydropyridine Calcium Channel Ariella Start: take 5 mg by mouth once daily Amlodipine 10 mg tablet Active 5 mg PO DAILY October 01, 2023 12:00am Start: 10-01-2023 take 5 mg by mouth once daily Amlodipine Active 5 MG PO DAILY October 01, 2023 12:00am Start: 10-01-2023 take 10 mg by mouth once daily Amlodipine Active 10 MG PO DAILY October 01, 2023 12:00am Start: 02-15-2022 End: 06-11-2024 take 0.5 tablet by mouth once daily amLODIPine (NORVASC) 10 mg tablet Take 0.5 tablets by mouth once daily. 90 tablet 3 06/11/2024 Active Start: 01-11-2022 End: 02-15-2022 take 1 tablet by mouth once daily amLODIPine (NORVASC) 10 mg tablet Take 1 tablet by mouth once daily. 90 tablet 3 01/11/2022 02/15/2022 Discontinued (Adjust Sig - Block E-Cancel) Start: 02-12-2021 End: 10-01-2023 take 1 tablet by mouth once daily Amlodipine (Norvasc) 5 mg tablet Discontinued 5 mg PO DAILY July 17, 2022 11:40pm October 01, 2023 3:23pm Comment on above: Take 5 mg by mouth o nce daily. Take 1 tablet by julito th once daily. Take 0.5 tablets by mouth once daily. amoxicillin 875 mg oral tablet (3 sources) Penicillin-class Antibacterial Start: End: take 1 tablet by mouth twice daily amoxicillin (AMOXIL) 875 mg tablet Indications: Dental abscess Take 1 tablet by mouth two times a day for 7 days. 14 tablet 05/07/2024 05/14/2024 Active aspirin 81 mg delayed release oral tablet (20 sources) Nonsteroidal Anti-inflammatory Drug Start: take 1 tablet by mouth twice daily aspirin, enteric coated (ASPIRIN, ENTERIC COATED) 81 mg EC tablet Take 1 tablet by mouth two times a day. 09/21/2023 Active Start: 12-06-2016 End: 11-15-2024 take 1 tablet by mouth once daily Aspirin 81 mg tablet,delayed release (DR/EC) Discontinued 81 mg PO DAILY November 24, 2017 12:00am November 15, 2024 8:35am Start: 03-01-2012 take 1 tablet by julito th once daily ASPIRIN 81 MG TABS One tablet by mouth daily ASPIRIN [id number] Karina Villarreal RN Start: 03-01-2012 take 1 tablet by julito th once daily ASPIRIN EC 81 MG TBEC One tablet by mouth daily ASPIRIN [id number] Bettina Vaca RN Comment on above: Take 1 tablet by julito th once daily. Take 1 tablet by julito th two times a day. benzonatate 100 mg oral capsule (20 sources) Non-narcotic Antitussive Start: 04-18-20 End: 11-04-19 take 1 capsule by mouth every eight hours as needed benzonatate (TESSALON PERLES) 100 mg capsule Take 1 capsule by mouth three times a day as needed for cough. 21 capsule 07/27/2024 Active 60 actuat budesonide 0.16 mg/actuat / formoterol fumarate 0.0045 mg/actuat metered dose inhaler (20 sources) Corticosteroid, beta2-Adrenergic Agonist Start: 03-07-20 End: 06-10-20 take 2 puff(s) by inhalation twice daily SYMBICORT 160-4.5 mcg/actuation inhaler Indications: Severe persistent asthma without complication (HCC) Inhale 2 puffs as instructed two times a day. 11 g 5 12/12/2024 06/10/2025 Active Start: 03-02-2024 End: 05-25-2024 Budesonide-Formoterol (Symbi holly) 160-4.5 mcg/actuation HFA aerosol inhaler Discontinued 2 NMA INHALATION TWICE A DAY 10.2 March 02, 2024 12:00am May 25, 2024 5:51am Start: 03-02-2024 End: 05-25-2024 Budesonide-Formoterol (Symbi holly) 160-4.5 mcg/actuation HFA aerosol inhaler Discontinued 2 NMA INHALATION TWICE A DAY 10.2 March 01, 2024 11:00pm May 25, 2024 4:51am Start: 02-13-2024 End: 03-06-2024 take 2 puff(s) by inhalation twice daily SYMBICORT 160-4.5 mcg/actuation inhaler Inhale 2 Puffs as instructed two times a day. 1 Each 02/13/2024 03/06/2024 Discontinued (Cost of medication) Start: 09-22-2023 End: 02-13-2024 take 2 puff(s) by inhalation twice daily budesonide-formoterol (SYMBICORT) 160-4.5 mcg/actuation inhaler Inhale 2 Puffs as instructed two times a day. 1 Each 09/22/2023 02/13/2024 Discontinued Start: 09-22-2023 take 2 puff(s) by in halation twice daily budesonide-formoterol (SYMBICORT) 160-4.5 mcg/actuation inhaler Inhale 2 Puffs as instructed two times a day. 1 Each 09/22/2023 Active Start: 06-15-2023 End: 09-22-2023 take 2 puff(s) by inhalation twice daily budesonide-formoterol (SYMBICORT) 160-4.5 mcg/actuation inhaler Inhale 2 Puffs as instructed two times a day. 1 Each 5 06/15/2023 09/22/2023 Discontinued Start: 06-15-2023 take 2 puff(s) by in halation twice daily budesonide-formoterol (SYMBICORT) 160-4.5 mcg/actuation inhaler Inhale 2 Puffs as instructed two times a day. 1 Each 5 06/15/2023 Active Start: 08-17-2022 End: 06-14-2023 take 2 puff(s) by inhalation twice daily budesonide-formoterol (SYMBICORT) 160-4.5 mcg/actuation inhaler Inhale 2 Puffs as instructed twice daily. 1 Each 5 08/17/2022 06/14/2023 Discontinued Start: 08-17-2022 take 2 puff(s) by in halation twice daily budesonide-formoterol (SYMBICORT) 160-4.5 mcg/actuation inhaler Inhale 2 Puffs as instructed twice daily. 1 Each 5 08/17/2022 Active Start: 06-21-2022 End: 08-17-2022 take 2 puff(s) by inhalation twice daily budesonide-formoterol (SYMBICORT) 160-4.5 mcg/actuation inhaler Inhale 2 Puffs as instructed twice daily. 1 Each 5 06/21/2022 08/17/2022 Discontinued Start: 06-21-2022 take 2 puff(s) by in halation twice daily budesonide-formoterol (SYMBICORT) 160-4.5 mcg/actuation inhaler Inhale 2 Puffs as instructed twice daily. 1 Each 5 06/21/2022 Active Start: 12-21-2021 Budesonide-For moterol 160-4.5 mcg/actuation HFA aerosol inhaler Active 2 NMA INHALATION TWICE A DAY December 21, 2021 12:00am Start: 12-21-2021 Budesonide-For moterol 160-4.5 mcg/actuation HFA aerosol inhaler Active 2 NMA INHALATION TWICE A DAY December 20, 2021 11:00pm Start: 12-21-2021 take 1 puff(s) by in halation twice daily Budesonide-Formoterol Active 2 PUFF INHALATION TWICE A DAY December 20, 2021 11:00pm Start: 12-21-2021 take 1 puff(s) by in halation twice daily Budesonide-Formoterol Active 2 PUFF INHALATION TWICE A DAY December 21, 2021 12:00am Start: 12-17-2021 End: 12-23-2021 take 2 puff(s) by inhalation twice daily budesonide-formoterol (SYMBICORT) 160-4.5 mcg/actuation inhaler Inhale 2 Puffs as instructed twice daily. 1 Each 5 12/17/2021 12/23/2021 Discontinued (Duplicate Entry) Start: 12-16-2021 End: 06-21-2022 take 2 puff(s) by inhalation twice daily budesonide-formoterol (SYMBICORT) 160-4.5 mcg/actuation inhaler Inhale 2 Puffs as instructed twice daily. 1 Each 5 12/16/2021 06/21/2022 Discontinued Start: 12-16-2021 take 2 puff(s) by in halation twice daily budesonide-formoterol (SYMBICORT) 160-4.5 mcg/actuation inhaler Inhale 2 Puffs as instructed twice daily. 1 Each 5 12/16/2021 Active Start: 04-30-2021 End: 12-16-2021 take 2 puff(s) by inhalation twice daily budesonide-formoterol (SYMBICORT) 160-4.5 mcg/actuation inhaler Inhale 2 Puffs as instructed twice daily. 1 Each 5 04/30/2021 12/16/2021 Discontinued Start: 04-30-2021 take 2 puff(s) by in halation twice daily budesonide-formoterol (SYMBICORT) 160-4.5 mcg/actuation inhaler Inhale 2 Puffs as instructed twice daily. 1 Each 5 04/30/2021 Active Start: 01-22-2021 End: 12-21-2021 Budesonide-Formoterol 80-4.5 mcg/actuation HFA aerosol inhaler Discontinued 2 NMA INHALATION TWICE A DAY January 22, 2021 12:00am December 21, 2021 1:26pm Start: 01-22-2021 End: 06-22-2021 Budesonide-Formoterol 80-4.5 mcg/actuation HFA aerosol inhaler Discontinued 2 NMA INHALATION TWICE A DAY January 22, 2021 12:00am June 22, 2021 12:24pm Start: 01-22-2021 End: 12-21-2021 Budesonide-Formoterol 80-4.5 mcg/actuation HFA aerosol inhaler Discontinued 2 NMA INHALATION TWICE A DAY January 21, 2021 11:00pm December 21, 2021 12:26pm Start: 01-22-2021 End: 06-22-2021 Budesonide-Formoterol 80-4.5 mcg/actuation HFA aerosol inhaler Discontinued 2 NMA INHALATION TWICE A DAY January 21, 2021 11:00pm June 22, 2021 11:24am Start: 01-22-2021 End: 12-21-2021 take 1 puff(s) by inhalation twice daily Budesonide-Formoterol Discontinued 2 PUFF INHALATION TWICE A DAY January 21, 2021 11:00pm December 21, 2021 12:26pm Start: 01-22-2021 End: 06-22-2021 take 1 puff(s) by inhalation twice daily Budesonide-Formoterol Discontinued 2 PUFF INHALATION TWICE A DAY January 21, 2021 11:00pm June 22, 2021 11:24am Start: 01-22-2021 End: 12-21-2021 take 1 puff(s) by inhalation twice daily Budesonide-Formoterol Discontinued 2 PUFF INHALATION TWICE A DAY January 22, 2021 12:00am December 21, 2021 1:26pm Start: 01-22-2021 End: 06-22-2021 take 1 puff(s) by inhalation twice daily Budesonide-Formoterol Discontinued 2 PUFF INHALATION TWICE A DAY January 22, 2021 12:00am June 22, 2021 12:24pm Start: 11-19-2016 SYMBICORT 80-4 .5 MCG/ACT AERO inhale 1 puff twice daily BUDESONIDE-FORMOTEROL FUMARATE [id number] Bettina Vaca RN Start: 10-12-2013 SYMBICORT 160- 4.5 MCG/ACT AERO as directed BUDESONIDE-FORMOTEROL FUMARATE [id number] Areli Estevez PA-C Comment on above: Inhale 2 Puffs as in structed twice daily. Inhale 2 Puffs as in structed two times a day. chlorhexidine gluconate 1.2 mg/ml mouthwash (20 sources) Start: 05-15-20 Chlorhexidine Gluconate (PERIDEX) 0.12 % solution Use 15 mL as instructed two times a day. 05/15/2024 Active cholecalciferol 1.25 mg oral capsule (20 sources) Vitamin D Start: 03-12-20 End: 10-16-19 take 1 capsule by mouth every week cholecalciferol, Vitamin D3, (VITAMIN D3) 1,250 mcg (50,000 unit) cap capsule Indications: Vitamin D deficiency Take 1 capsule by mouth one time a week. 12 capsule 4 10/15/2024 Active Start: 12-03-2019 take 1 capsule by [facility] every week Cholecalciferol (Vitamin D3) 1,250 mcg (50,000 unit) capsule Active 1250 ug PO EVERY WEEK December 03, 2019 12:00am Comment on above: Take 1 capsule by [facility] one time a week. dexamethasone 6 mg oral tablet (1 source) Corticosteroid Start: 07-24-19 take 6 mg by mouth once daily Dexamethasone Active 6 MG PO DAILY 7 July 24, 2022 12:00am flash glucose sensor (FREESTYLE RAISSA 2 SENSOR) kit (20 sources) Start: 09-23-19 flash glucose sensor (FREESTYLE RAISSA 2 SENSOR) kit Indications: 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) , Type 1 diabetes mellitus on insulin therapy (HCC) Apply new sensor every fourteen (14) days to upper arm. 6 Each 4 09/22/2022 Active Comment on above: Apply new sensor maggie ry fourteen (14) days to upper arm. furosemide 20 mg oral tablet (20 sources) Loop Diuretic Start: 11-16-19 25 take 10 mg by mouth once daily Furosemide 20 mg tablet Active 10 mg PO DAILY November 15, 2024 8:32am Start: 01-22-2021 End: 11-15-2024 take 1 tablet by mouth once daily as needed furosemide (LASIX) 20 mg tablet Take 1 tablet by mouth once daily as needed. 90 tablet 3 03/01/2023 Active Comment on above: Take 1 tablet by julito th once daily as needed. 0.2 ml glucagon 5 mg/ml auto-injector (20 sources) Antihypoglycemic Agent Start: 04-09-20 glucagon (GVOKE HYPOPEN 1-PACK) 1 mg/0.2 mL auto-injector Inject 1 mg subcutaneously as needed. 0.2 mL 3 04/09/2024 Active 12 hr guaiFENesin 1200 mg extended release oral tablet (1 source) Start: 07-20-19 take 1 tablet by mouth twice daily, then take 1 tablet by mouth every twelve hours Guaifenesin (Mucus Relief Er) 1,200 mg Tablet Extended Release 12hr Active 1200 MG PO TWICE A DAY 0 July 20, 2022 12:00am 3 ml insulin glargine 100 unt/ml pen injector (20 sources) Insulin Analogue Start: 12-19-19 25 insulin glargine (LANTUS SOLOSTAR U-100 INSULIN) 100 unit/mL (3 mL) Inject 22 units once daily 12/18/2024 Active Start: 10-31-2024 End: 12-18-2024 insulin glargine (LANTUS NICKIE OSTAR U-100 INSULIN) 100 unit/mL (3 mL) Inject 24 units once daily 27 mL 3 10/31/2024 12/18/2024 Discontinued (Adjust Sig - Block E-Cancel) Start: 06-19-2024 End: 10-31-2024 insulin glargine (LANTUS NICKIE OSTAR U-100 INSULIN) 100 unit/mL (3 mL) Inject 22 units once daily 06/19/2024 10/31/2024 Discontinued Start: 06-13-2024 Insulin Glargi ne (Lantus Solostar U-100 Insulin) 100 unit/mL (3 mL) insulin pen Active 24 U SC AT BEDTIME June 13, 2024 3:15pm 20-26u Start: 05-23-2024 End: 06-19-2024 insulin glargine (LANTUS NICKIE OSTAR U-100 INSULIN) 100 unit/mL (3 mL) Inject 20 units once daily 05/23/2024 06/19/2024 Discontinued (Adjust Sig - Block E-Cancel) Start: 04-24-2024 End: 05-23-2024 insulin glargine (LANTUS NICKIE OSTAR U-100 INSULIN) 100 unit/mL (3 mL) Indications: Diabetes mellitus type 1, controlled, without complications (HCC) Inject 26 units once daily 04/24/2024 05/23/2024 Discontinued Start: 03-12-2024 End: 04-24-2024 insulin glargine (LANTUS NICKIE OSTAR U-100 INSULIN) 100 unit/mL (3 mL) Indications: Diabetes mellitus type 1, controlled, without complications (HCC) Inject 27 units once daily 27 mL 3 03/12/2024 04/24/2024 Discontinued (Adjust Sig - Block E-Cancel) Start: 12-07-2023 End: 03-12-2024 inject 30 [IU] by subcutaneous injection once daily at bedtime insulin glargine 100 unit/mL (3 mL) Inject 30 Units subcutaneously daily at bedtime. Give Lantus, not Basaglar per patient preference 5 Each 12/07/2023 03/12/2024 Discontinued Start: 11-21-2023 End: 12-07-2023 inject 26 [IU] by subcutaneous injection once daily at bedtime insulin glargine 100 unit/mL (3 mL) Inject 26 Units subcutaneously daily at bedtime. Give Lantus, not Basaglar per patient preference 5 Each 11/21/2023 12/07/2023 Discontinued Start: 11-11-2023 End: 11-21-2023 inject 22 [IU] by subcutaneous injection once daily at bedtime insulin glargine 100 unit/mL (3 mL) Inject 22 Units subcutaneously daily at bedtime. Give Lantus, not Basaglar per patient preference 5 Each 11/11/2023 11/21/2023 Discontinued (Adjust Sig - Block E-Cancel) Start: 11-07-2023 End: 06-13-2024 Insulin Glargine (Lantus Nickie ostar U-100 Insulin) 100 unit/mL (3 mL) insulin pen Discontinued 20 U SC AT BEDTIME November 07, 2023 12:00am June 13, 2024 3:16pm Start: 11-07-2023 Insulin Glargi ne (Insulin Glargine 100 Unit/Ml (3 Ml) Subcutaneous Pen) 100 unit/mL (3 mL) insulin pen Active 27 UNIT SC AT BEDTIME November 07, 2023 12:00am Start: 03-01-2023 End: 11-11-2023 inject 27 [IU] by subcutaneous injection once daily at bedtime insulin glargine 100 unit/mL (3 mL) Inject 27 Units subcutaneously daily at bedtime. Give Lantus, not Basaglar per patient preference 5 Each 11 03/01/2023 11/11/2023 Discontinued (Adjust Sig - Block E-Cancel) Start: 06-22-2022 End: 07-20-2022 Insulin Glargine 100 unit/mL (3 mL) insulin pen Discontinued 24 U SC AT BEDTIME June 22, 2022 11:49am July 20, 2022 11:26am Start: 06-22-2022 Insulin Glargi ne Active 22 - 24 UNIT SC AT BEDTIME June 22, 2022 10:49am Start: 01-11-2022 End: 02-28-2023 inject 27 [IU] by subcutaneous injection once daily at bedtime insulin glargine 100 unit/mL (3 mL) Inject 27 Units subcutaneously daily at bedtime. Give Lantus, not Basaglar per patient preference 5 Each 11 03/01/2023 Active Start: 01-22-2021 End: 06-22-2022 Insulin Glargine 100 unit/mL (3 mL) insulin pen Discontinued 26 U SC AT BEDTIME January 22, 2021 10:54am June 22, 2022 11:51am Start: 01-19-2019 End: 01-22-2021 inject 20-25 [IU] by subcutaneous injection at bedtime Insulin Glargine 100 UNIT/ML insulin pen Discontinued 20 - 25 U SQ AT BEDTIME January 19, 2019 12:00am January 22, 2021 11:03am Start: 01-19-2019 End: 01-11-2022 inject 20-25 [IU] by subcutaneous injection at bedtime Insulin Glargine Discontinued 20 - 25 UNIT SQ AT BEDTIME January 19, 2019 12:00am January 22, 2021 11:03am Start: 12-16-2016 End: 12-04-2018 Insulin Glargine 100 UNIT/ML solution Discontinued 22 U SC AT BEDTIME December 16, 2016 12:00am December 04, 2018 2:15pm Start: 03-06-2016 End: 03-11-2016 inject 22 [IU] by subcutaneous injection at bedtime Insulin Glargine (Lantus) 100 UNIT/ML Ml Discontinued 22 U SQ AT BEDTIME March 06, 2016 12:00am March 11, 2016 2:28pm Start: 03-01-2012 LANTUS 100 UNI T/ML SOLN as directed INSULIN GLARGINE [id number] Chris Lott MD Start: 03-01-2012 LANTUS 100 UNI T/ML SOLN take at bedtime as instructed INSULIN GLARGINE [id number] Karina Villarreal RN Comment on above: Inject 27 Units subc utaneously daily at bedtime. Give Lantus, not Basaglar per patient preference Insulin Glargine-Yfgn (20 sources) Start: 08-02-2022 Insulin Glargine-Yfgn Active 24 UNIT SC TWICE A DAY August 02, 2022 1:35pm Start: 08-02-2022 Insulin Glargi ne-Yfgn Active 24 UNIT SC TWICE A DAY August 02, 2022 12:35pm Start: 07-31-2022 End: 08-02-2022 Insulin Glargine-Yfgn 100 un it/mL (3 mL) insulin pen Discontinued 30 U SC AT BEDTIME July 31, 2022 11:16pm August 02, 2022 1:35pm Start: 07-31-2022 End: 08-02-2022 Insulin Glargine-Yfgn 100 un it/mL (3 mL) insulin pen Discontinued 30 U SC AT BEDTIME July 31, 2022 10:16pm August 02, 2022 12:35pm Start: 07-31-2022 End: 08-02-2022 Insulin Glargine-Yfgn Discon tinued 30 UNIT SC AT BEDTIME July 31, 2022 11:16pm August 02, 2022 1:35pm Start: 07-31-2022 End: 08-02-2022 Insulin Glargine-Yfgn Discon tinued 30 UNIT SC AT BEDTIME July 31, 2022 10:16pm August 02, 2022 12:35pm Start: 07-31-2022 Insulin Glargi ne-Yfgn Active 30 UNIT SC AT BEDTIME July 31, 2022 10:16pm Start: 07-24-2022 End: 07-31-2022 Insulin Glargine-Yfgn 100 un it/mL (3 mL) Insulin Pen Discontinued 50 U SC AT BEDTIME July 24, 2022 1:00am July 31, 2022 11:18pm Start: 07-24-2022 End: 07-31-2022 Insulin Glargine-Yfgn 100 un it/mL (3 mL) Insulin Pen Discontinued 50 U SC AT BEDTIME July 24, 2022 12:00am July 31, 2022 10:18pm Start: 07-24-2022 End: 07-31-2022 Insulin Glargine-Yfgn Discon tinued 50 UNIT SC AT BEDTIME July 24, 2022 1:00am July 31, 2022 11:18pm Start: 07-24-2022 End: 07-31-2022 Insulin Glargine-Yfgn Discon tinued 50 UNIT SC AT BEDTIME July 24, 2022 12:00am July 31, 2022 10:18pm Start: 07-24-2022 Insulin Glargi ne-Yfgn Active 50 UNIT SC AT BEDTIME July 24, 2022 12:00am insulin aspart, human 100 unt/ml injectable solution (20 sources) Insulin Analogue Start: 12-18-2024 insulin aspar t U-100 (NOVOLOG U-100 INSULIN ASPART) 100 unit/mL Indications: 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 PLUS SS#1 (1 units for every 50 over 150 PRE MEAL blood sugar) TDD 50 units daily TYPE I DIABETES, insulin dependent, E10.65 20 mL 3 10/15/2024 Active Start: 12-07-2023 End: 04-24-2024 insulin aspart U-100 (NOVOLO G U-100 INSULIN ASPART) 100 unit/mL Indications: 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) Inject 4 units with breakfast, 4 units with lunch, 6 units dinner. PLUS SS#1 (1 units for every 50 over 150 PRE MEAL blood sugar) TDD 30 units daily 10 mL 3 03/23/2024 04/24/2024 Discontinued (Adjust Sig - Block E-Cancel) Start: 04-05-2022 End: 12-07-2023 inject 3-10 [IU] by subcutaneous injection three times daily before mealtime insulin aspart U-100 (NOVOLOG U-100 INSULIN ASPART) 100 unit/mL Indications: 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) Inject 3-10 Units subcutaneously three times a day before meals. As directed 30 mL 4 05/23/2023 12/07/2023 Discontinued Start: 03-31-2022 inject 100 [IU] by s ubcutaneous injection once daily before mealtime insulin aspart U-100 (NOVOLOG FLEXPEN U-100 INSULIN) 100 unit/mL (3 mL) INJECT 3 TO 10 UNITS SUBCUTANEOUSLY BEFORE MEALS DAILY or as directed 30 mL 3 03/31/2022 Active Start: 03-11-2016 End: 04-21-2016 Insulin Aspart U-100 (Novolo g Flexpen U-100 Insulin) 100 UNITS/ML Flexpen Discontinued 9 U SC THREE TIMES DAILY BEFORE MEALS March 11, 2016 12:00am April 21, 2016 11:08pm Start: 03-01-2012 take 10 [IU] by subc utaneous injection three times daily NOVOLOG 100 UNIT/ML SOLN 10 units sq three times a day INSULIN ASPART [id number] Bettina Vaca RN Comment on above: INJECT 3 TO 10 UNITS SUBCUTANEOUSLY BEFORE MEALS DAILY or as directed Inject 3-10 Units kidd bcutaneously three times daily before meals. As directed Inject 3-10 Units kidd bcutaneously three times a day before meals. As directed metoprolol tartrate 50 mg oral tablet (20 sources) beta-Adrenergic Ariella Start: 10-01-2023 Metoprolol Tartrate 50 mg tablet Active 25 mg PO Q12H October 01, 2023 12:00am Start: 10-01-2023 take 25 mg by mouth every twelve hours Metoprolol Tartrate Active 25 MG PO Q12H October 01, 2023 12:00am Start: 10-01-2023 take 50 mg by mouth every twelve hours Metoprolol Tartrate Active 50 MG PO Q12H October 01, 2023 12:00am Start: 05-11-2021 End: 06-11-2024 take 1 tablet by mouth twice daily metoprolol tartrate, short acting, (LOPRESSOR) 50 mg tablet Indications: Palpitations Take 1/2 tablet by mouth twice a day 90 tablet 3 06/11/2024 Active Start: 02-12-2021 End: 07-17-2022 take 1 tablet by mouth twice daily Metoprolol Tartrate 25 mg tablet Discontinued 25 mg PO TWICE A DAY 180 February 12, 2021 1:58pm July 17, 2022 11:40pm Start: 01-22-2021 End: 02-12-2021 Metoprolol Tartrate 50 mg ta blet Discontinued 25 mg PO TWICE A DAY January 22, 2021 11:43am February 12, 2021 1:59pm Start: 01-22-2021 End: 02-12-2021 take 25 mg by mouth twice daily Metoprolol Tartrate Di scontinued 25 MG PO TWICE A DAY January 22, 2021 11:43am February 12, 2021 1:59pm Start: 12-03-2019 End: 01-22-2021 take 1 tablet by mouth in the evening Metoprolol Tartrate 50 mg tablet Discontinued 50 mg PO .COMPLEX December 03, 2019 2:15pm January 22, 2021 11:43am 50 mg PO 1 tab in the am and one half tab in the pm; Start: 01-19-2019 End: 12-03-2019 take 1 tablet by mouth once daily Metoprolol Tartrate 50 MG tablet Discontinued 50 mg PO DAILY January 19, 2019 12:00am December 03, 2019 2:19pm Start: 01-19-2019 End: 12-03-2019 Metoprolol Tartrate 50 MG ta blet Discontinued 25 mg PO DAILY January 19, 2019 12:00am December 03, 2019 2:16pm Start: 01-19-2019 End: 12-03-2019 take 25 mg by mouth once daily Metoprolol Tartrate Dis continued 25 MG PO DAILY January 19, 2019 12:00am December 03, 2019 2:16pm Start: 12-16-2016 End: 11-24-2017 take 1 tablet by mouth once daily Metoprolol Tartrate 50 MG tablet Discontinued 50 mg PO DAILY December 16, 2016 12:31am November 24, 2017 1:05pm Start: 12-16-2016 End: 11-24-2017 take 1 tablet by mouth at bedtime Metoprolol Tartrate 25 MG tablet Discontinued 25 mg PO AT BEDTIME December 16, 2016 12:00am November 24, 2017 1:05pm Start: 03-06-2016 End: 03-11-2016 take 1 tablet by mouth once daily Metoprolol Tartrate 50 MG tablet Discontinued 50 mg PO DAILY March 06, 2016 12:00am March 11, 2016 2:28pm Start: 03-06-2016 End: 03-11-2016 take 1 tablet by mouth at bedtime Metoprolol Tartrate 25 MG tablet Discontinued 25 mg PO AT BEDTIME March 06, 2016 12:00am March 11, 2016 2:28pm Start: 03-01-2012 End: 12-16-2016 take 1 tablet by mouth twice daily Metoprolol Tartrate 50 MG tablet Discontinued 50 mg PO TWICE A DAY April 21, 2016 11:09pm December 16, 2016 12:31am Comment on above: Take 1/2 tablet by m outh twice a day mometasone furoate 1 mg/ml topical cream (20 sources) Corticosteroid Start: 06-13-2024 Mometasone 0.1 % cream Active 1 NMA TOPICAL daily June 13, 2024 1:00am Start: 01-17-2023 End: 10-15-2024 mometasone (ELOCON) 0.1 % cr eam Indications: Psoriasis of scalp , Seborrheic dermatitis Apply to affected area once daily as needed (for scalp psoriasis). For 14 days. Treat for recurrences. Apply at bedtime then wash off in the morning 45 g 1 10/15/2024 Active Comment on above: Apply to affected ar ea once daily as needed (for scalp psoriasis). For 14 days. Treat for recurrences. Apply at bedtime then wash off in the morning nitrofurantoin, macrocrystals 25 mg / nitrofurantoin, monohydrate 75 mg oral capsule (3 sources) Nitrofuran Antibacterial Start: 06-27-20 End: 07-02-20 take 1 capsule by mouth twice daily nitrofurantoin monohydrate and macrocrystal (MACROBID) 100 mg capsule Indications: Acute cystitis without hematuria Take 1 capsule by mouth two times a day for 5 days. 10 capsule 06/27/2024 07/02/2024 Active Start: 06-11-2024 End: 06-16-2024 take 1 capsule by mouth twice daily nitrofurantoin monohydrate and macrocrystal (MACROBID) 100 mg capsule Indications: Acute cystitis without hematuria Take 1 capsule by mouth two times a day for 5 days. 10 capsule 06/11/2024 06/16/2024 Active omeprazole 20 mg delayed release oral tablet (20 sources) Proton Pump Inhibitor Start: 06-22-2022 take 1 tablet by mouth once daily Omeprazole Magnesium (Prilosec Otc) 20 mg tablet,delayed release (DR/EC) Active 20 mg PO DAILY June 22, 2022 1:00am Start: 12-23-2021 End: 02-15-2022 take 1 tablet by mouth twice daily before mealtime Omeprazole Magnesium (PRILOSEC OTC) 20 mg tablet Take 1 tablet by mouth twice daily. 1/2 hr before meal. 0 12/23/2021 02/15/2022 Discontinued Start: 12-03-2019 End: 06-22-2022 take 1 capsule by mouth once daily Omeprazole 20 mg capsule,delayed release(DR/EC) Discontinued 20 mg PO DAILY December 03, 2019 2:16pm June 22, 2022 11:50am Start: 03-06-2016 End: 12-03-2019 take 1 capsule by mouth twice daily Omeprazole 20 MG capsule Discontinued 20 mg PO TWICE A DAY January 19, 2019 8:14pm December 03, 2019 2:19pm Start: 10-12-2013 take 1 tablet by julito twice daily PRILOSEC OTC 20 MG TBEC One tablet by mouth twice daily OMEPRAZOLE MAGNESIUM [id number] Areli Estevez PA-C Start: 07-09-2013 End: 07-09-2013 Prilosec Discontinued Dece er 2012 12:00am July 09, 2013 10:44am Start: 07-09-2013 End: 07-09-2013 Prilosec Discontinued Decemb er 2012 1:00am July 09, 2013 11:44am Start: 03-23-2013 PRILOSEC OTC 2 0 MG TBEC .12 OMEPRAZOLE MAGNESIUM [id number] Chris Lott MD Start: 03-01-2012 End: 11-15-2012 take 1 tablet by mouth twice daily OMEPRAZOLE 20 MG CPDR One tablet by mouth twice daily OMEPRAZOLE [id number] Karina Villarreal RN Comment on above: Take 1 capsule by mo [facility] once daily. Take 1 tablet by julito twice daily. 1/2 hr before meal. QUEtiapine 25 mg oral tablet (1 source) Atypical Antipsychotic Start: 3 take 12.5 mg by mouth at bedtime Quetiapine Active 12.5 MG PO AT BEDTIME 0 July 22, 2022 12:00am ramipril 10 mg oral capsule (20 sources) Angiotensin Converting Enzyme Inhibitor Start: 9 End: 4 take 1 capsule by mouth twice daily ramipril (ALTACE) 10 mg capsule Indications: Essential hypertension Take 1 capsule by mouth two times a day. 180 capsule 3 06/11/2024 Active Start: 03-01-2012 take 1 tablet by [facility] twice daily ALTACE 10 MG CAPS One tablet by mouth twice daily RAMIPRIL [id number] Karina Villarreal RN Comment on above: Take 1 capsule by [facility] twice daily. Take 1 capsule by [facility] two times a day. zolpidem tartrate 5 mg oral tablet (20 sources) gamma-Aminobutyric Acid-ergic Agonist Start: 10-25-2024 End: 01-23-2025 take 0.5-1 tablets by mouth at bedtime as needed zolpidem (AMBIEN) 5 mg tablet Indications: Primary insomnia Take 0.5-1 tablets by mouth at bedtime as needed for up to 90 days. Needs larger pill dispensed to cut in half. Patient should start on October 25, 2024. 30 tablet 2 10/25/2024 01/23/2025 Active Start: 07-09-2024 End: 10-15-2024 take 0.5-1 tablets by mouth at bedtime as needed zolpidem (AMBIEN) 5 mg tablet Indications: Primary insomnia Take 0.5-1 tablets by mouth at bedtime as needed for up to 90 days. Needs larger pill dispensed to cut in half. Patient should start on July 09, 2024. 30 tablet 2 07/09/2024 10/15/2024 Discontinued Start: 03-30-2023 End: 06-11-2024 zolpidem (AMBIEN) 5 mg table t Indications: Primary insomnia Take 0.5-1 tablets by mouth at bedtime as needed for up to 90 days. Needs larger pill dispensed to cut in half. 30 tablet 2 02/13/2024 06/11/2024 Discontinued Start: 10-05-2022 End: 01-03-2023 take 2.5-5 mg by mouth every twenty-four hours as needed zolpidem (AMBIEN) 5 mg tablet Take 0.5-1 tablets by mouth at bedtime as needed for up to 90 days. 30 tablet 2 10/05/2022 Active Start: 02-11-2022 take 2.5 mg by mouth at bedtime as needed Zolpidem 5 mg Tablet Active 2.5 mg PO AT BEDTIME as needed for Insomnia February 11, 2022 12:00am Start: 02-11-2022 take 2.5 mg by mouth at bedtim e Zolpidem Active 2.5 MG PO AT BEDTIME February 11, 2022 12:00am Start: 02-11-2022 End: 10-05-2022 zolpidem (AMBIEN) 5 mg table t Indications: Insomnia, unspecified type Take 0.5-1 tablets by mouth at bedtime as needed for up to 90 days. Do not start before June 05, 2022. 30 tablet 2 06/05/2022 10/05/2022 Discontinued Start: 07-21-2021 End: 05-18-2022 take 0.5-1 tablets by mouth at bedtime as needed zolpidem (AMBIEN) 5 mg tablet Indications: Insomnia, unspecified type Take 0.5-1 tablets by mouth at bedtime as needed for up to 90 days. 30 tablet 2 01/11/2022 05/18/2022 Discontinued Start: 01-19-2019 End: 01-22-2021 take 2.5 mg by mouth at bedtime as needed Zolpidem 5 MG tablet Discontinued 2.5 mg PO AT BEDTIME NEEDED as needed for Insomnia January 19, 2019 8:14pm January 22, 2021 11:03am Start: 01-19-2019 End: 01-22-2021 take 2.5 mg by mouth at bedtime as needed Zolpidem Discontinued 2.5 MG PO AT BEDTIME NEEDED January 19, 2019 8:14pm January 22, 2021 11:03am Start: 10-12-2013 End: 01-19-2019 take 1 tablet by mouth at bedtime as needed Zolpidem 5 MG tablet Discontinued 5 mg PO AT BEDTIME NEEDED as needed for Insomnia April 21, 2016 12:00am January 19, 2019 8:15pm Start: 10-12-2013 AMBIEN 10 MG T ABS as needed ZOLPIDEM TARTRATE [id number] Areli Estevez PA-C Comment on above: Take 0.5-1 tablets b y mouth at bedtime as needed for up to 90 days. Take 0.5-1 tablets b y mouth at bedtime as needed for up to 90 days. Do not start before June 05, 2022. Completed/Discontinued Medications Medication Drug Class(es) Dates Sig (Normalized) Sig (Original) acetaminophen 325 mg oral tablet (20 sources) Start: 08-02-2022 End: 06-13-2024 Acetaminophen (Tylenol) 325 mg Tablet Discontinued 650 mg PO EVERY 6 HOURS NEEDED as needed for Pain 1-10 Or Fever >100.7 0 August 02, 2022 1:00am June 13, 2024 3:16pm Start: 08-02-2022 take 2 tablets by mo uth every six hours as needed Acetaminophen (Tylenol) 325 mg Tablet Active 650 MG PO EVERY 6 HOURS NEEDED 0 August 02, 2022 1:00am Start: 03-11-2016 End: 04-21-2016 Acetaminophen (Tylenol) 325 MG tablet Discontinued 650 mg PO EVERY 6 HOURS NEEDED as needed for Mild Pain (scale 0-3)/T>100.7 0 March 11, 2016 12:00am April 21, 2016 11:06pm Start: 03-11-2016 End: 04-21-2016 take 2 tablets by mouth every six hours as needed Acetaminophen (Tylenol) 325 MG tablet Discontinued 650 MG PO EVERY 6 HOURS NEEDED 0 March 11, 2016 12:00am April 21, 2016 11:06pm acetaminophen 325 mg / oxyCODONE hydrochloride 5 mg oral tablet (20 sources) Opioid Agonist Start: 03-11-2016 End: 04-21-2016 Oxycodone-Acetaminophen 1 TABLET tablet Discontinued 1 - 2 {tbl} PO EVERY 4 HOURS NEEDED as needed for Severe Pain (6-10/10) March 11, 2016 12:00am April 21, 2016 11:08pm Start: 03-11-2016 End: 04-21-2016 take 1 tablet by mouth every four hours as needed Oxycodone-Acetaminophen Discontinued 1 - 2 TABLET PO EVERY 4 HOURS NEEDED March 11, 2016 12:00am April 21, 2016 11:08pm amoxicillin 875 mg / clavulanate 125 mg oral tablet (20 sources) Penicillin-class Antibacterial Start: 08-02-2022 End: 11-22-2022 Amoxicillin-Pot Clavulanate 875-125 mg tablet Discontinued 1 {tbl} PO TWICE A DAY August 02, 2022 1:00am November 22, 2022 12:59pm Start: 08-02-2022 End: 11-22-2022 take 1 tablet by mouth twice daily Amoxicillin-Pot Clavulanate Discontinued 1 TABLET PO TWICE A DAY August 02, 2022 1:00am November 22, 2022 12:59pm Comment on above: Take 1 tablet by [facility] twice daily for 10 days. apixaban 5 mg oral tablet (5 sources) Factor Xa Inhibitor Start: 11-20-19 End: 11-23-19 take 1 tablet by mouth twice daily ELIQUIS 5 MG TABS One tablet by mouth twice daily APIXABAN [id number] Bettina Vaca RN cefdinir 300 mg oral capsule (20 sources) Cephalosporin Antibacterial Start: 07-24-19 End: 08-02-19 take 1 capsule by mouth twice daily Cefdinir 300 mg capsule Discontinued 300 mg PO TWICE A DAY 2 July 24, 2022 1:00am August 02, 2022 1:32pm cephalexin 500 mg oral capsule (2 sources) Cephalosporin Antibacterial Start: 09-28-19 End: 10-05-19 take 1 capsule by mouth four times daily cephALEXin (KEFLEX) 500 mg capsule Take 1 capsule by mouth four times daily for 7 days. 28 capsule 0 09/27/2022 09/30/2022 Discontinued Comment on above: Take 1 capsule by [facility] four times daily for 7 days. COMPOUNDED PRESCRIPTION (20 sources) Start: 03-14-20 End: 02-16-20 COMPOUNDED PRESCRIPTION Indications: Obstructive sleep apnea Bi-PAP nose pads. 1 Package 11 03/14/2017 02/15/2022 Discontinued Start: 03-14-2017 COMPOUNDED PRE SCRIPTION Indications: Obstructive sleep apnea Bi-PAP nose pads. 1 Package 11 03/14/2017 Active Start: 01-27-2017 COMPOUNDED PRE SCRIPTION Indications: THAIS treated with BiPAP Bi-PAP nose pads. (G47.33) THAIS treated with BiPAP 2 Device 1 01/27/2017 Active Comment on above: Bi-PAP nose pads. (G 47.33) THAIS treated with BiPAP Bi-PAP nose pads. 24 hr dilTIAZem hydrochloride 180 mg extended release oral capsule (20 sources) Calcium Channel Ariella Start: End: take 1 capsule by mouth once daily Diltiazem Hcl 180 mg capsule,extended release 24hr Discontinued 180 mg PO DAILY January 22, 2021 11:42am February 12, 2021 1:58pm Start: 03-06-2016 End: 01-22-2021 take 1 capsule by mouth twice daily Diltiazem Hcl 180 MG capsule Discontinued 180 mg PO TWICE A DAY March 06, 2016 12:00am January 22, 2021 11:43am Start: 03-01-2012 take 1 tablet by julito th twice daily CARDIZEM CD 180 MG [id number] One tablet by mouth twice daily DILTIAZEM HCL [place] [id number] Karina Villarreal RN docusate sodium 100 mg oral capsule (20 sources) Start: 01-22-2021 End: 06-22-2021 take 1 capsule by mouth once daily Docusate Sodium 100 mg capsule Discontinued 100 mg PO DAILY January 22, 2021 12:00am June 22, 2021 12:24pm Start: 03-11-2016 End: 04-21-2016 take 1 capsule by mouth twice daily Docusate Calcium (Stool Softener (Docusate Will)) 240 MG capsule Discontinued 240 mg PO TWICE A DAY March 11, 2016 12:00am April 21, 2016 11:08pm doxycycline monohydrate 100 mg oral capsule (20 sources) Tetracycline-class Drug Start: 10-11-2022 End: 11-22-2022 take 1 capsule by mouth twice daily Doxycycline Monohydrate 100 mg capsule Discontinued 100 mg PO TWICE A DAY October 11, 2022 12:00am November 22, 2022 12:59pm Start: 08-28-2013 End: 11-24-2013 take 1 tablet by mouth twice daily Doxycycline Hyclate 100 MG tablet Discontinued 100 mg PO TWICE A DAY August 28, 2013 1:00am November 24, 2013 4:02pm ergocalciferol 1.25 mg oral capsule (20 sources) Provitamin D2 Compound Start: 01-19-2019 End: 12-03-2019 Ergocalciferol (Vitamin D2) 50,000 UNIT capsule Discontinued 78409 U PO SA January 19, 2019 8:14pm December 03, 2019 2:13pm Start: 04-21-2016 End: 01-19-2019 Ergocalciferol (Vitamin D2) 50,000 UNIT capsule Discontinued 29199 U PO Q7D@1700 2 April 21, 2016 12:00am January 19, 2019 8:15pm Start: 11-15-2012 take 1 tablet by julito th once daily VITAMIN D (ERGOCALCIFEROL) 47148 UNIT CAPS One tablet by mouth daily ERGOCALCIFEROL [id number] Chris Lott MD esomeprazole 40 mg injection (6 sources) Proton Pump Inhibitor Start: 11-15-2012 End: 03-23-2013 take 1 tablet by mouth once daily NEXIUM 40 MG CPDR One tablet by mouth daily ESOMEPRAZOLE MAGNESIUM [id number] Chris Lott MD 72 hr fentaNYL 0.025 mg/hr transdermal system (20 sources) Opioid Agonist Start: 03-11-2016 End: 04-21-2016 Fentanyl 25 MCG patch Discontinued 25 ug TRANSDERM. Every 3 Days 5 March 11, 2016 12:00am April 21, 2016 11:08pm fluconazole 100 mg oral tablet (20 sources) Azole Antifungal Start: 07-27-2021 End: 02-15-2022 fluconazole (DIFLUCAN) 100 mg tablet Indications: Oral thrush , Intertrigo Take 2 tablets on day 1, then 1 tablet for 3 days. 5 tablet 0 07/27/2021 02/15/2022 Discontinued Comment on above: Take 2 tablets on da y 1, then 1 tablet for 3 days. fluticasone propionate 0.05 mg/actuat metered dose nasal spray (15 sources) Corticosteroid Start: 07-02-2021 End: 12-23-2021 take 1 spray(s) nasal route once daily fluticasone (FLONASE) 50 mcg/actuation nasal spray Indications: Post-nasal drip Use 1 [place] in each nostril once daily. 1 Each 3 07/02/2021 12/23/2021 Discontinued Comment on above: Use 1 [place] in each nostril once daily. fluticasone / salmeterol (20 sources) Corticosteroid, beta2-Adrenergic Agonist Start: 02-20-2024 End: 03-06-2024 take 1 puff(s) by mouth twice daily fluticasone-salmet michael (ADVAIR DISKUS) 100-50 mcg/dose inhaler Inhale 1 Puff as instructed two times a day. Rinse mouth out after use with water. 1 Each 5 02/20/2024 03/06/2024 Discontinued Start: 02-20-2024 take 1 puff(s) by mo uth twice daily fluticasone-salmeterol (ADVAIR DISKUS) 100-50 mcg/dose inhaler Inhale 1 Puff as instructed two times a day. Rinse mouth out after use with water. 1 Each 5 02/20/2024 Active Start: 12-03-2019 End: 01-22-2021 Fluticasone Propion-Salmeter ol 100-50 mcg/dose blister with device Discontinued 1 NMA INHALATION TWICE A DAY December 03, 2019 2:13pm January 22, 2021 11:03am Start: 12-03-2019 End: 01-22-2021 Fluticasone Propion-Salmeter ol 100-50 mcg/dose blister with device Discontinued 1 NMA INHALATION TWICE A DAY December 03, 2019 1:13pm January 22, 2021 10:03am Start: 12-03-2019 End: 01-22-2021 Fluticasone Propion-Salmeter ol Discontinued 1 EACH INHALATION TWICE A DAY December 03, 2019 1:13pm January 22, 2021 10:03am Start: 12-03-2019 End: 01-22-2021 Fluticasone Propion-Salmeter ol Discontinued 1 EACH INHALATION TWICE A DAY December 03, 2019 2:13pm January 22, 2021 11:03am Start: 01-19-2019 End: 12-03-2019 take 1 dose by inhalation twice daily Fluticasone Propion-Salmeterol 1 EACH blister with device Discontinued 1 NMA INHALATION TWICE A DAY January 19, 2019 12:00am December 03, 2019 2:19pm Start: 01-19-2019 End: 12-03-2019 take 1 dose by inhalation twice daily Fluticasone Propion-Salmeterol 1 EACH blister with device Discontinued 1 NMA INHALATION TWICE A DAY January 18, 2019 11:00pm December 03, 2019 1:19pm Start: 01-19-2019 End: 12-03-2019 take 1 puff(s) by inhalation twice daily Fluticasone Propion-Salmeterol Discontinued 1 PUFF INHALATION TWICE A DAY January 18, 2019 11:00pm December 03, 2019 1:19pm Start: 01-19-2019 End: 12-03-2019 take 1 puff(s) by inhalation twice daily Fluticasone Propion-Salmeterol Discontinued 1 PUFF INHALATION TWICE A DAY January 19, 2019 12:00am December 03, 2019 2:19pm ibuprofen 200 mg oral tablet (20 sources) Nonsteroidal Anti-inflammatory Drug Start: 01-22-2021 End: 06-22-2021 take 1 tablet by mouth every six hours as needed Ibuprofen 200 mg tablet Discontinued 200 mg PO EVERY 6 HOURS as needed January 22, 2021 12:00am June 22, 2021 12:25pm Start: 09-21-2013 take 200-400 mg by m outh every six hours as needed ibuprofen 200 mg tablet Take 1-2 tablets by mouth four times daily as needed (Take with food.). --currently only needing 1 pill twice daily to help with cough 09/21/2013 Active Comment on above: Take 1-2 tablets by mouth four times daily as needed (Take with food.). --currently only needing 1 pill twice daily to help with cough 3 ml insulin detemir 100 unt/ml pen injector (20 sources) Insulin Analogue Start: 03-11-2016 End: 04-21-2016 Insulin Detemir U-100 (Levemir Flextouch U100 Insulin) 100 UNITS/ML Insuln.Pen Discontinued 20 U SC EVERY MORNING March 11, 2016 12:00am April 21, 2016 11:07pm Start: 03-11-2016 End: 04-21-2016 Insulin Detemir U-100 (Levem ir Flextouch U100 Insulin) 100 UNITS/ML Insuln.Pen Discontinued 25 U SC AT BEDTIME March 11, 2016 12:00am April 21, 2016 11:08pm Start: 03-11-2016 End: 04-21-2016 Insulin Detemir U-100 (Levem ir Flextouch U-100 Insuln) 100 UNITS/ML Insuln.Pen Discontinued 20 UNITS SC EVERY MORNING March 11, 2016 12:00am April 21, 2016 11:07pm Start: 03-11-2016 End: 04-21-2016 Insulin Detemir U-100 (Levem ir Flextouch U-100 Insuln) 100 UNITS/ML Insuln.Pen Discontinued 25 UNITS SC AT BEDTIME March 11, 2016 12:00am April 21, 2016 11:08pm Start: 03-01-2012 take 15 [IU] by subc utaneous injection twice daily LEVEMIR 100 UNIT/ML SOLN 15 units sq twice daily INSULIN DETEMIR [id number] Bettina Vaca RN Insulin Glargine-Yfgn (1 source) Start: 08-02-2022 End: 11-28-2023 Insulin Glargine-Yfgn Discontinued 24 UNIT SC TWICE A DAY August 02, 2022 1:35pm November 28, 2023 9:37pm Insulin Glargine-Yfgn 100 unit/mL (3 mL) insulin pen (8 sources) Start: 08-02-2022 End: 11-28-2023 Insulin Glargine-Yfgn 100 unit/mL (3 mL) insulin pen Discontinued 24 U SC TWICE A DAY August 02, 2022 1:35pm November 28, 2023 9:37pm Start: 08-02-2022 End: 11-28-2023 Insulin Glargine-Yfgn 100 un it/mL (3 mL) insulin pen Discontinued 24 U SC TWICE A DAY August 02, 2022 12:35pm November 28, 2023 8:37pm insulin isophane, human 100 unt/ml injectable suspension (20 sources) Start: 11-07-2023 End: 11-28-2023 Insulin Nph Isoph U-100 Susan n [Insulin Nph Isoph U-100 Human 100 Unit/Ml Subcutaneous Suspension] (Insulin Nph Isoph U-100 Human 100 Unit/Ml ) 100 unit/mL suspension Discontinued U SC November 07, 2023 12:00am November 28, 2023 9:37pm Start: 11-07-2023 End: 11-28-2023 Insulin Nph Isoph U-100 Susan n [Insulin Nph Isoph U-100 Human 100 Unit/Ml Subcutaneous Suspension] (Insulin Nph Isoph U-100 Human 100 Unit/Ml ) 100 unit/mL suspension Discontinued UNIT SC November 07, 2023 12:00am November 28, 2023 9:37pm Start: 01-11-2022 End: 11-21-2023 insulin NPH injection Indica tions: 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) Inject 15-20 Units subcutaneously daily with breakfast. Dispense 6 vials (3 months supply) 20 mL 3 05/23/2023 11/21/2023 Discontinued Start: 01-22-2021 End: 08-02-2022 Insulin Nph Isoph U-100 Susan n (Novolin N Nph U-100 Insulin) 100 unit/mL suspension Discontinued 13 U SC EVERY MORNING January 22, 2021 12:00am August 02, 2022 1:34pm Start: 09-10-2020 End: 01-11-2022 Insulin Nph Isoph U-100 Susan n (Novolin N Nph U-100 Insulin) 100 unit/mL suspension Active 15 - 20 UNIT SC EVERY MORNING January 21, 2021 11:00pm Start: 09-01-2020 End: 01-22-2021 Insulin Nph Isoph U-100 Susan n 100 unit/mL suspension Discontinued 12 U SC DAILY September 01, 2020 2:06pm January 22, 2021 10:59am Start: 01-19-2019 End: 09-01-2020 inject 10 [IU] by subcutaneous injection once daily Insulin Nph Isoph U-100 Human 100 UNIT/ML suspension Discontinued 10 U SQ DAILY January 19, 2019 12:00am September 01, 2020 2:09pm Start: 03-06-2016 End: 03-11-2016 inject 15 [IU] by subcutaneous injection once daily Insulin Nph Isoph U-100 Human (Humulin N Vial) 100 UNIT/ML Ml Discontinued 15 U SQ DAILY March 06, 2016 12:00am March 11, 2016 2:28pm Comment on above: Inject 15-20 Units s ubcutaneously daily with breakfast. Inject 15-20 Units s ubcutaneously daily with breakfast. Dispense 6 vials (3 months supply) 3 ml insulin lispro 100 unt/ml pen injector (20 sources) Insulin Analogue Start: 08-02-2022 End: 11-28-2023 Insulin Lispro (Humalog Kwikpen Insulin) 100 unit/mL Insulin Pen Discontinued 0 U SC BEFORE MEALS AND AT BEDTIME 0 August 02, 2022 1:00am November 28, 2023 9:37pm Please contact the information source for Protocol details. Start: 08-02-2022 End: 11-28-2023 Insulin Lispro (Humalog Kwik pen Insulin) 100 unit/mL Insulin Pen Discontinued 0 UNIT SC BEFORE MEALS AND AT BEDTIME 0 August 02, 2022 1:00am November 28, 2023 9:37pm Start: 06-22-2022 Insulin Lispro 100 unit/mL solution Active 6 U SC 3 TIMES DAILY WITH MEALS June 22, 2022 11:50am Please contact the information source for Protocol details. Start: 01-22-2021 End: 06-22-2022 Insulin Lispro 100 unit/mL solution Discontinued 3 - 10 U SC before meals January 22, 2021 12:00am June 22, 2022 11:51am Start: 01-22-2021 End: 06-22-2022 Insulin Lispro Discontinued 3 - 10 UNIT SC before meals January 22, 2021 12:00am June 22, 2022 11:51am Start: 01-12-2021 End: 03-31-2022 inject 3-10 [IU] by subcutaneous injection once daily before mealtime insulin lispro (HUMALOG U-100 INSULIN) 100 unit/mL injection INJECT 3 TO 10 UNITS SUBCUTANEOUSLY BEFORE MEALS DAILY or as directed 30 mL 3 01/11/2022 03/31/2022 Discontinued (Not on Formulary) Start: 12-16-2016 End: 01-22-2021 Insulin Lispro 100 UNIT/ML cartridge Discontinued 6 U SC THREE TIMES A DAY December 16, 2016 12:00am January 22, 2021 10:58am Start: 03-06-2016 End: 03-11-2016 inject 6 [IU] by subcutaneous injection three times daily at mealtime Insulin Lispro (Humalog) 100 UNIT/ML Ml Discontinued 6 U SQ 3 TIMES DAILY WITH MEALS March 06, 2016 12:00am March 11, 2016 2:27pm Start: 03-01-2012 HUMALOG 100 UN IT/ML SOLN as directed INSULIN LISPRO (HUMAN) [id number] Chris Lott MD Start: 03-01-2012 HUMALOG 100 UN IT/ML SOLN Take as directed INSULIN LISPRO (HUMAN) [id number] Karina Villarreal RN Start: 03-01-2012 End: 07-21-2015 HUMALOG 100 UNIT/ML SOLN [place] e as directed INSULIN LISPRO (HUMAN) [id number] Chris Lott MD Comment on above: INJECT 3 TO 10 UNITS SUBCUTANEOUSLY BEFORE MEALS DAILY or as directed L. acidophilus/Bifid. animalis (DAILY PROBIOTIC ORAL) (20 sources) End: take 1 capsule by mouth once daily L. acidophilus/Bifid. animalis (DAILY PROBIOTIC ORAL) Take 1 capsule by mouth once daily. 05/23/2024 Discontinued (Other) take 1 capsule by mouth once reese ly L. acidophilus/Bifid. animalis (DAILY PROBIOTIC ORAL) Take 1 capsule by mouth once daily. Active take 1 capsule by mouth once reese ly L. acidophilus/Bifid. animalis (DAILY PROBIOTIC ORAL) Take 1 capsule by mouth once daily. 0 Active Comment on above: Take 1 capsule by [facility] once daily. Lactobacillus acidophilus (20 sources) Start: 01-22-2021 End: 06-22-2021 Lactobacillus Acidophilus Discontinued [id number] MMU CELLS PO DAILY January 21, 2021 11:00pm June 22, 2021 11:26am Start: 01-22-2021 End: 06-22-2021 Lactobacillus Acidophilus Di scontinued 73882 MMU CELLS PO DAILY January 22, 2021 12:00am June 22, 2021 12:26pm Lactobacillus Acidophilus 10 billion cell capsule (8 sources) Start: 01-22-2021 End: 06-22-2021 Lactobacillus Acidophilus 10 billion cell capsule Discontinued [id number] NMA PO DAILY January 22, 2021 12:00am June 22, 2021 12:26pm Start: 01-22-2021 End: 06-22-2021 Lactobacillus Acidophilus 10 billion cell capsule Discontinued [id number] NMA PO DAILY January 21, 2021 11:00pm June 22, 2021 11:26am meloxicam 15 mg oral tablet (7 sources) Nonsteroidal Anti-inflammatory Drug Start: 09-01-2023 End: 10-01-2023 take 1 tablet by mouth once daily for pain meloxicam (MOBIC) 15 mg tablet Take 1 tablet by mouth once daily. for pain. Take with food. 30 tablet 0 09/01/2023 10/01/2023 Comment on above: Take 1 tablet by [facility] once daily. for pain. Take with food. nitrofurantoin 100 mg oral tablet (8 sources) Nitrofuran Antibacterial Start: 06-13-2024 End: 11-15-2024 take 1 capsule by mouth twice daily at mealtime Nitrofurantoin 100 mg capsule Discontinued 100 mg PO TWICE A DAY June 13, 2024 1:00am November 15, 2024 8:33am must administer with a meal/food INSULIN ISOPHANE HUMAN SUSP (3 sources) Start: 03-01-2012 HUMULIN N SUSP take as directed INSULIN ISOPHANE HUMAN SUSP [id number] Karina Villarreal RN Nut.Tx.Gluc Intol,Lf,Soy-Fiber (Glucerna 1.2 Will) 0.06-1.2 gram-kcal/mL Liquid (20 sources) Start: 08-02-2022 End: 11-22-2022 take 1 mL by mouth three times daily at mealtime Nut.Tx.Gluc Intol,Lf,Soy-Fiber (Glucerna 1.2 Will) 0.06-1.2 gram-kcal/mL Liquid Discontinued 120 mL PO 3 TIMES DAILY WITH MEALS August 02, 2022 1:00am November 22, 2022 12:59pm Start: 08-02-2022 End: 11-22-2022 take 1 mL by mouth three times daily at mealtime Nut.Tx.Gluc Intol,Lf,Soy-Fiber (Glucerna 1.2 Will) 0.06-1.2 gram-kcal/mL Liquid Discontinued 120 mL PO 3 TIMES DAILY WITH MEALS August 02, 2022 12:00am November 22, 2022 11:59am Start: 08-02-2022 End: 11-22-2022 take 1 mL by mouth three times daily at mealtime Nut.Tx.Gluc Intol,Lf,Soy-Fiber (Glucerna 1.2 Will) 0.06-1.2 gram-kcal/mL Liquid Discontinued 120 ML PO 3 TIMES DAILY WITH MEALS August 02, 2022 12:00am November 22, 2022 11:59am Start: 08-02-2022 End: 11-22-2022 take 1 mL by mouth three times daily at mealtime Nut.Tx.Gluc Intol,Lf,Soy-Fiber (Glucerna 1.2 Will) 0.06-1.2 gram-kcal/mL Liquid Discontinued 120 ML PO 3 TIMES DAILY WITH MEALS August 02, 2022 1:00am November 22, 2022 12:59pm Start: 08-02-2022 take 1 mL by mouth t hree times daily at mealtime Nut.Tx.Gluc Intol,Lf,Soy-Fiber (Glucerna 1.2 Will) 0.06-1.2 gram-kcal/mL Liquid Active 120 ML PO 3 TIMES DAILY WITH MEALS 0 August 02, 2022 1:00am Start: 08-02-2022 take 1 mL by mouth t hree times daily at mealtime Nut.Tx.Gluc Intol,Lf,Soy-Fiber (Glucerna 1.2 Will) 0.06-1.2 gram-kcal/mL Liquid Active 120 ML PO 3 TIMES DAILY WITH MEALS 0 August 02, 2022 12:00am nystatin [id number] unt/ml oral suspension (15 sources) Polyene Antifungal Start: 07-27-2021 End: 12-23-2021 nystatin (MYCOSTATIN) 100,000 unit/mL suspension Indications: Oral thrush Take 5 mL by mouth four times daily. 1tsp swish in mouth for several minutes, then swallow (or expectorate) 4 times daily until gone. 200 mL 1 07/27/2021 12/23/2021 Discontinued Comment on above: Take 5 mL by mouth f our times daily. 1tsp swish in mouth for several minutes, then swallow (or expectorate) 4 times daily until gone. ondansetron 4 mg disintegrating oral tablet (20 sources) Serotonin-3 Receptor Antagonist Start: 12-16-2016 End: 11-24-2017 take 1 tablet by mouth every eight hours as needed for nausea Ondansetron 4 MG tablet Discontinued 4 mg PO EVERY 8 HOURS NEEDED as needed for Nausea December 16, 2016 12:00am November 24, 2017 1:05pm POLYSACCHARIDE IRON COMPLEX (5 sources) Start: 11-19-2016 End: 11-22-2016 take 1 tablet by mouth once daily FERREX 150 150 MG CAPS One tablet by mouth daily POLYSACCHARIDE IRON COMPLEX [id number] Chris Lott MD Start: 11-19-2016 take 1 tablet by julito once daily FERREX 150 150 MG CAPS One tablet by mouth daily POLYSACCHARIDE IRON COMPLEX [id number] Bettina Vaca RN pravastatin sodium 10 mg oral tablet (20 sources) HMG-CoA Reductase Inhibitor Start: 11-24-2017 End: 11-28-2017 take 5 mg by mouth once daily Pravastatin 10 mg tablet Discontinued 5 mg PO daily November 24, 2017 12:00am November 28, 2017 1:05pm Start: 11-24-2017 End: 11-28-2017 take 5 mg by mouth once daily Pravastatin Discontinued 5 MG PO daily November 24, 2017 12:00am November 28, 2017 1:05pm Start: 11-22-2016 take 0.5 tablet by m outh once daily PRAVASTATIN SODIUM 10 MG TABS 1/2 tablet by mouth daily PRAVASTATIN SODIUM [id number] Chris Lott MD rivaroxaban 10 mg oral tablet (20 sources) Factor Xa Inhibitor Start: 03-11-2016 End: 04-21-2016 take 1 tablet by mouth once daily Rivaroxaban (Xarelto) 10 MG tablet Discontinued 10 mg PO DAILY March 11, 2016 12:00am April 21, 2016 11:08pm rosuvastatin calcium 10 mg oral tablet (20 sources) HMG-CoA Reductase Inhibitor Start: 12-03-2019 End: 09-01-2020 take 5 mg by mouth two times weekly Rosuvastatin 10 mg tablet Discontinued 5 mg PO TWICE A WEEK December 03, 2019 12:00am September 01, 2020 2:08pm Start: 12-03-2019 End: 09-01-2020 take 5 mg by mouth two times weekly Rosuvastatin Discontinued 5 MG PO TWICE A WEEK December 03, 2019 12:00am September 01, 2020 2:08pm simvastatin 10 mg oral tablet (20 sources) HMG-CoA Reductase Inhibitor Start: 01-22-2021 End: 06-22-2021 take 2.5 mg by mouth two times weekly Simvastatin 10 mg tablet Discontinued 2.5 mg PO TWICE A WEEK January 22, 2021 12:00am June 22, 2021 12:28pm Start: 01-22-2021 End: 06-22-2021 take 2.5 mg by mouth two times weekly Simvastatin Discontinued 2.5 MG PO TWICE A WEEK January 22, 2021 12:00am June 22, 2021 12:28pm Start: 03-06-2016 End: 11-24-2017 take 1 tablet by mouth at bedtime Simvastatin 5 MG tablet Discontinued 5 mg PO AT BEDTIME March 06, 2016 12:00am November 24, 2017 1:02pm Start: 03-01-2012 take 0.5 tablet by m outh at bedtime SIMVASTATIN 10 MG TABS 1/2 tablet (5 mg ) by mouth at bedtime (STOP) SIMVASTATIN [id number] Chris Lott MD Start: 03-01-2012 take 1 tablet by julito th at bedtime ZOCOR 10 MG TABS One tablet by mouth at bedtime. SIMVASTATIN [id number] Karina Villarreal RN sulfamethoxazole 800 mg / trimethoprim 160 mg oral tablet (8 sources) Dihydrofolate Reductase Inhibitor Antibacterial, Sulfonamide Antimicrobial Start: 06-08-2024 End: 06-13-2024 Sulfamethoxazole-Trimethopri m (Bactrim Ds) 800-160 mg tablet Discontinued 1 {tbl} PO TWICE A DAY 13 June 08, 2024 1:00am June 13, 2024 3:14pm traMADol hydrochloride 50 mg oral tablet (5 sources) Opioid Agonist Start: 11-19-2016 End: 11-22-2016 take 1 tablet by mouth every six hours as needed TRAMADOL HCL 50 MG TABS One tablet by mouth q 6 hours as needed TRAMADOL HCL [id number] Bettina Vaca RN Problems Active Problems Problem Classification Problem Date [...] Chronic Chronic obstructive pulmonary disease and bronchiectasis (20 sources) Acute exacerbation of chronic obstructive airways disease with asthma; Translations: [Chronic obstructive pulmonary disease with (acute) exacerbation] Onset: 3 Resolved: 4 Chronic Complications of surgical procedures or medical care (20 sources) Drug therapy finding; Translations: [Unspecified adverse effect of drug or medicament, initial encounter] 10-01-2022 Episodic Deficiency and other anemia (1 source) Anemia; Translations: [Anemia, unspecified] 09-26-2024 Episodic Deficiency and other anemia (1 source) Anemia, unspecified; Translations: [Anemia, unspecified type] Onset: Episodic Diabetes mellitus with complications (20 sources) Type 1 diabetes mellitus; Translations: [Type 1 diabetes mellitus with unspecified complications] Onset: 6 05-27-2015 Chronic Diabetes mellitus without complication (20 sources) Type 2 diabetes mellitus; Translations: [Type 2 diabetes mellitus without complications] Onset: 4 02-11-2022 Chronic Diabetes mellitus without complication (20 sources) Hyperglycemia; Translations: [Hyperglycemia, unspecified] 10-28-2023 Episodic Disorders of lipid metabolism (20 sources) Hyperlipidemia; Translations: [Hyperlipidemia, unspecified] Onset: 2 03-01-2012 Chronic Disorders of teeth and jaw (1 source) Dental abscess; Translations: [Periapical abscess without sinus] 05-07-2024 Episodic Esophageal disorders (20 sources) Gastroesophageal reflux disease; Translations: [Gastro-esophageal reflux disease without esophagitis] 12-16-2005 Chronic Essential hypertension (20 sources) Hypertensive disorder; Translations: [Essential hypertension] Onset: 6 03-01-2012 Chronic Fluid and electrolyte disorders (20 sources) Acute hypokalemia; Translations: [Hypokalemia] Episodic Heart valve disorders (20 sources) Mitral valve prolapse; Translations: [Rheumatic mitral valve disease, unspecified] Onset: 2 Resolved: 7 11-19-2016 Chronic Inflammatory diseases of female pelvic organs (20 sources) Cellulitis; Translations: [Abscess of vulva] Episodic Miscellaneous mental health disorders (4 sources) Primary insomnia; Translations: [Primary insomnia] 09-21-2023 Chronic Mood disorders (20 sources) Depressive disorder; Translations: [Other specified depressive episodes] Onset: 3 12-16-2005 Chronic Noninfectious gastroenteritis (8 sources) Enteritis of small intestine; Translations: [Noninfective gastroenteritis and colitis, unspecified] 09-20-2024 Episodic Nutritional deficiencies (20 sources) Vitamin D deficiency; Translations: [Vitamin D deficiency, unspecified] Onset: 1 08-21-2010 Chronic Other and unspecified benign neoplasm (1 source) Lipoma (clinical); Translations: [Benign lipomatous neoplasm, unspecified] Episodic Other bone disease and musculoskeletal deformities (20 sources) Disorder of skeletal system; Translations: [Disorder of bone, unspecified] 07-13-2021 Episodic Other circulatory disease (20 sources) History of paroxysmal supraventricular tachycardia; Translations: [Personal history of other diseases of the circulatory system] 02-19-2022 Episodic Other circulatory disease (16 sources) History of cardiac arrhythmia; Translations: [Personal history of other diseases of the circulatory system] 06-05-2023 Episodic Other connective tissue disease (2 sources) Pain in right arm; Translations: [Pain in right arm] Episodic Other connective tissue disease (2 sources) Pain in fingers of bilateral hands; Translations: [Pain in left finger(s)] 09-01-2023 Episodic Other connective tissue disease (2 sources) Pain of right lower leg; Translations: [Pain in right lower leg] 10-31-2023 Episodic Other connective tissue disease (1 source) Pain in right lower leg; Translations: [Pain and swelling of right lower leg] Onset: 4 Episodic Other connective tissue disease (1 source) Other specified soft tissue disorders; Translations: [Pain and swelling of right lower leg] Onset: 4 Episodic Other connective tissue disease (5 sources) Trochanteric bursitis; Translations: [Trochanteric bursitis, unspecified hip] 10-19-2024 Episodic Other connective tissue disease (5 sources) Thigh pain; Translations: [Pain in left thigh] 10-19-2024 Episodic Other connective tissue disease (1 source) Pain in left thigh; Translations: [Pain in left thigh] Onset: 5 Episodic Other connective tissue disease (1 source) Pain in left leg; Translations: [Pain in left leg] Onset: 5 Episodic Other diseases of veins and lymphatics (20 sources) Bilateral lower limb edema; Translations: [Chronic venous hypertension (idiopathic) without complications of bilateral lower extremity] Onset: 8 04-27-2018 Chronic Other gastrointestinal disorders (1 source) Constipation alternates with diarrhea; Translations: [Other specified symptoms and signs involving the digestive system and abdomen] Episodic Other gastrointestinal disorders (1 source) Acute diarrhea; Translations: [Diarrhea, unspecified] 09-26-2024 Episodic Other gastrointestinal disorders (14 sources) Diarrhea; Translations: [Diarrhea, unspecified] 09-20-2024 Episodic Other gastrointestinal disorders (1 source) Constipation; Translations: [Constipation, unspecified] 10-15-2024 Episodic Other gastrointestinal disorders (1 source) Diarrhea, unspecified; Translations: [Diarrhea, unspecified] Onset: Episodic Other hematologic conditions (1 source) ESR raised; Translations: [Elevated erythrocyte sedimentation rate] 09-05-2023 Episodic Other inflammatory condition of skin (20 sources) Rosacea; Translations: [Rosacea, unspecified] Onset: 8 09-06-2007 Chronic Other inflammatory condition of skin (3 sources) Scalp psoriasis; 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, unspecified] 01-17-2023 Chronic Other inflammatory condition of skin (3 sources) Seborrheic dermatitis; Translations: [Seborrheic dermatitis, unspecified] 01-17-2023 Episodic Other injuries and conditions due to external causes (4 sources) Contusion; Translations: [Other injury of unspecified body region, initial encounter] 10-24-2024 Episodic Other lower respiratory disease (4 sources) Dyspnea; Translations: [Shortness of breath] Onset: 2 03-01-2012 Episodic Other lower respiratory disease (20 sources) Hypoxia; Translations: [Hypoxemia] 07-10-2022 Episodic Other lower respiratory disease (11 sources) Hypoxemia; Translations: [Hypoxemia] Episodic Other lower respiratory disease (1 source) Hypoxemia; Translations: [Hypoxemia] Episodic Other lower respiratory disease (19 sources) Dyspnea on exertion; Translations: [Other forms of dyspnea] 11-22-2022 Episodic Other lower respiratory disease (2 sources) Cough; Translations: [Acute cough] 04-18-2024 Episodic Other nervous system disorders (3 sources) Nwshgeq-Fnbvv-Espth disease; 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 03-01-2012 Chronic Other non-traumatic joint disorders (20 sources) Arthropathy associated with a neurological disorder; Translations: [Charcot's joint, unspecified site] Onset: 6 11-27-2015 Chronic Other non-traumatic joint disorders (1 source) Charcot's joint of foot 09-21-2024 Chronic Other non-traumatic joint disorders (2 sources) Multiple joint pain; Translations: [Pain in unspecified joint] 09-01-2023 Episodic Other nutritional; endocrine; and metabolic disorders (8 sources) Body mass index (BMI) 50-59.9 , adult; Translations: [Body mass index (BMI) 45.0-49.9, adult] Onset: 3 11-22-2016 Chronic Other nutritional; endocrine; and metabolic disorders (20 sources) Body mass index 40+ - severely obese; Translations: [Morbid (severe) obesity due to excess calories] Onset: 7 09-09-2021 Chronic Other nutritional; endocrine; and metabolic disorders (2 sources) Severe obesity; Translations: [Morbid (severe) obesity due to excess calories] 06-25-2023 Chronic Other nutritional; endocrine; and metabolic disorders (2 sources) Morbid obesity; Translations: [Morbid (severe) obesity due to excess calories] 09-22-2023 Chronic Other nutritional; endocrine; and metabolic disorders (1 source) Obesity caused by energy imbalance; Translations: [Morbid (severe) obesity due to excess calories] 09-26-2024 Chronic Other nutritional; endocrine; and metabolic disorders (12 sources) H/O: diabetes mellitus; Translations: [Personal history of other endocrine, nutritional and metabolic disease] 12-15-2023 Episodic Other nutritional; endocrine; and metabolic disorders (6 sources) History of diabetes mellitus type 2; Translations: [Personal history of other endocrine, nutritional and metabolic disease] 09-23-2024 Episodic Other skin disorders (1 source) Finding of neck region; Translations: [Localized swelling, mass and lump, neck] 01-02-2024 Episodic Other skin disorders (1 source) Cutaneous horn; Translations: [Other specified epidermal thickening] 01-02-2024 Episodic Pneumonia (except that caused by tuberculosis or sexually transmitted disease) (20 sources) Bilateral pneumonia; Translations: [Pneumonia, unspecified organism] Episodic Poisoning by nonmedicinal substances (18 sources) Ingestion of foreign material; Translations: [Toxic effect of unspecified substance, accidental (unintentional), initial encounter] 02-13-2023 Episodic Residual codes; unclassified (20 sources) Obstructive sleep apnea syndrome; Translations: [Obstructive sleep apnea (adult) (pediatric)] 06-22-2022 Chronic Comment on above: uses CPAP Residual codes; unclassified (20 sources) Hypoxia; Translations: [Idiopathic sleep related nonobstructive alveolar hypoventilation] Onset: 4 09-22-2023 Chronic Residual codes; unclassified (1 source) History of delirium; Translations: [Personal history of other specified conditions] 02-21-2023 Episodic Superficial injury; contusion (4 sources) Contusion of left thigh; Translations: [Contusion of left thigh, initial encounter] Onset: 5 11-03-2024 Episodic Unclassified (1 source) Acute cough; Translations: [Acute cough] Onset: 4 Viral infection (7 sources) COVID-19; Translations: [Pneumonia due to other virus not elsewhere classified] Episodic Past or Other Problems Problem Classification Problem Date Documented Date Episodic/Chronic Cardiac dysrhythmias (20 sources) Palpitations; Translations: [Palpitations] Onset: 05-16-20 Episodic Conditions associated with dizziness or vertigo (9 sources) Lightheadedness; Translations: [Dizziness and giddiness] Onset: 07-03-20 24 12-15-2023 Episodic E Codes: Adverse effects of medical drugs (20 sources) HMG COA reductase inhibitor adverse reaction; Translations: [Adverse effect of antihyperlipidemic and antiarteriosclerotic drugs, initial encounter] Onset: 06-07-20 22 06-07-2022 Episodic Malaise and fatigue (20 sources) Asthenia; Translations: [Other malaise] Onset: 10-01-19 10 09-30-2009 Episodic Nonspecific chest pain (20 sources) Chest pain, unspecified; Translations: [Chest pain] Onset: 03-01-20 12 Resolved : 11-20-19 17 11-19-2016 Episodic Other lower respiratory disease (3 sources) Other forms of dyspnea; Translations: [Other respiratory abnormalities] Onset: 07-03-20 24 11-22-2022 Episodic Other lower respiratory disease (2 sources) Shortness of breath; Translations: [Shortness of breath] Onset: 06-07-20 Episodic Other nutritional; endocrine; and metabolic disorders (20 sources) Obesity; Translations: [Obesity, unspecified] Resolved : 05-11-20 21 10-25-2021 Chronic Other screening for suspected conditions (not mental disorders or infectious disease) (20 sources) Patient encounter status; Translations: [Encounter for screening for malignant neoplasm of colon] Onset: 04-12-20 Episodic Other upper respiratory infections (16 sources) Acute upper respiratory infection; Translations: [Acute upper respiratory infection, unspecified] Onset: 04-18-20 24 10-01-2023 Episodic Phlebitis; thrombophlebitis and thromboembolism (3 sources) Deep venous thrombosis of lower extremity; Translations: [Acute embolism and thrombosis of unspecified deep veins of left distal lower extremity] Onset: 11-20-19 17 11-19-2016 Episodic Residual codes; unclassified (20 sources) Insomnia; Translations: [Insomnia, unspecified] Onset: 06-01-20 07 06-01-2007 Episodic Respiratory failure; insufficiency; arrest (adult) (20 sources) Acute respiratory failure; Translations: [Acute respiratory failure with hypoxia] Onset: 11-13-19 Resolved : 03-07-20 Episodic Urinary tract infections (11 sources) Acute cystitis; Translations: [Acute cystitis without hematuria] Onset: 06-28-20 24 06-11-2024 Episodic Results Test Name Value Interpretation Reference Range Facility Bedside Glucoseon 12-19-2024 [facility] GLU 227 mg/dL High 74-106 [facility] Comment on above: Result Comment: MERCEDES SUBRAMANIAN OF PATIENT CARE PER NURSING PROTOCOL Performed By: #### L 501.080 ####[facility] [address] [place], [address] [facility] Emergency [facility] Summary on 12-19-2024 Emergency Department Summary Normal [facility]20[facility] 12-12-2024 [facility] Normal [facility] Absolute lymphocyte countOrd ered By: Serg Solis on 11-29-2024 Lymphocytes Auto (Unsp spec) [#/Vol] 1.09 10*3/uL 0.83-4.51 [facility] Absolute neutrophil countOrd ered By: Serg Solis on 11-29-2024 Neutrophils (Bld) [#/Vol] 3.4 10*3/uL 2.0-7.7 [facility] Anion gap in Serum or Plasma Ordered By: Serg Solis on 11-29-2024 Anion gap [Moles/Vol] 11 mmol/L 5- [facility] Automated lymphocyte count a s percentage of total leukocytesOrdered By: Serg Solis on 11-29-2024 Lymphocytes/100 WBC Auto (Unsp spec) 20.6 % 19-41 [facility] BUN/creatinine ratioOrdered By: Serg Solis on 11-29-2024 Urea nitrogen/Creatinine [Mass ratio] 21.6 mg/mg High 10-20 [facility] Basophil percentageOrdered B y: Serg Solis on 11-29-2024 Basophils/100 WBC (Bld) 0.8 % 0-1 [facility] Bedside Glucoseon 11-29-2024 [facility] GLU 265 mg/dL High 74-106 [facility] Comment on above: Result Comment: MERCEDES GEMENT OF PATIENT CARE PER NURSING PROTOCOL Performed By: #### L 501.080 ####[facility] [address] [place], [address] [facility] GLU 275 mg/dL High 74-106 [facility] Comment on above: Result Comment: MERCEDES GEMENT OF PATIENT CARE PER NURSING PROTOCOL Performed By: #### L 501.080 ####[facility] [address] [place], [address] Beta-Hydroxbytyrateon 2024 BETA-HYDROXYBUT 1.0 mmol/L Normal 0.0-0.3 [facility] Comment on above: Performed By: #### L 100.0100, L500.4050, [id number] ####[facility] [address] [place], [address] Beta-hydroxybutyrateOrdered By: Serg Solis on 11-29-2024 Beta hydroxybutyrate [Mass/Vol] 1.0 mmol/L 0.0-0.3 [facility] Bilirubin Test strip Ql (U)O rdered By: Serg Solis on 11-29-2024 Bilirubin Ql (U) Negative Negative [facility] Bilirubin, totalOrdered By: Serg Kimtania on 11-29-2024 Bilirubin [Mass/Vol] 0.72 mg/dL 0.00-1.30 [facility] CBC W/Diff, Automatedon 11-15 Absolute Lymph 1.09 X10 3/uL Normal 0.83-4.51 [facility] Comment on above: Performed By: #### L 100.0100, L500.4050, [id number] ####[facility] [address] [place], [address] Absolute Neut 3.4 X10 3/uL Normal 2.0-7.7 [facility] Comment on above: Performed By: #### L 100.0100, L500.4050, [id number] ####[facility] [address] [place], [address] Basophils/100 WBC (Bld) 0.8 % Normal 0-1 [facility] Comment on above: Performed By: #### L 100.0100, L500.4050, [id number] ####[facility] [address] [place], [address] Eosinophils/100 WBC (Bld) 6.6 % High 0-5 [facility] Comment on above: Performed By: #### L 100.0100, L500.4050, [id number] ####[facility] [address] [place], [address] Erythrocyte distribution width (RBC) [Ratio] 12.6 % Normal 11.6-14.6 [facility] Comment on above: Performed By: #### L 100.0100, L500.4050, [id number] ####[facility] [address] [place], [address] Hematocrit (Bld) [Volume fraction] 38.2 % Normal 37-47 [facility] Comment on above: Performed By: #### L 100.0100, L500.4050, [id number] ####[facility] [address] [place], [address] Hemoglobin (Bld) [Mass/Vol] 12.6 g/dL Normal 12.0-15.0 [facility] Comment on above: Performed By: #### L 100.0100, L500.4050, [id number] ####[facility] [address] [place], [address] IG% 0.000 Normal 0.0-0.9 [facility] Comment on above: Result Comment: IG% - Immature Granulocytes (promyelocytes, myelocytes andmetamyelocytes) > 1% indicates that a LEFT SHIFT is Present. Performed By: #### L 100.0100, L500.4050, [id number] ####[facility] [address] [place], [address] Lymphocytes/100 WBC (Bld) 20.6 % Normal 19-41 [facility] Comment on above: Performed By: #### L 100.0100, L500.4050, [id number] ####[facility] [address] [place], [address] MCH (RBC) [Entitic mass] 30.0 pg Normal 27.0-32.0 [facility] Comment on above: Performed By: #### L 100.0100, L500.4050, [id number] ####[facility] [address] [place], [address] MCHC (RBC) [Mass/Vol] 33.0 g/dL Normal 32-36 [facility] Comment on above: Performed By: #### L 100.0100, L500.4050, [id number] ####[facility] [address] [place], [address] MCV (RBC) [Entitic vol] 91.0 fL Normal 81-99 [facility] Comment on above: Performed By: #### L 100.0100, L500.4050, [id number] ####[facility] [address] [place], [address] Monocytes/100 WBC (Bld) 7.2 % Normal 0-10 [facility] Comment on above: Performed By: #### L 100.0100, L500.4050, [id number] ####[facility] [address] [place], [address] Neutrophils/100 WBC (Bld) 64.8 % Normal 47-70 [facility] Comment on above: Performed By: #### L 100.0100, L500.4050, [id number] ####[facility] [address] [place], [address] Nucleated RBC (Bld) [#/Vol] 0 10*3/uL Normal 0-5 [facility] Comment on above: Performed By: #### L 100.0100, L500.4050, [id number] ####[facility] [address] [place], [address] Platelet mean volume (Bld) [Entitic vol] 12.1 fL High 6.2-12.0 [facility] Comment on above: Performed By: #### L 100.0100, L500.4050, [id number] ####[facility] [address] [place], [address] Platelets (Bld) [#/Vol] 153 10*3/uL Normal 150-450 [facility] Comment on above: Performed By: #### L 100.0100, L500.4050, [id number] ####[facility] [address] [place], [address] RBC (Bld) [#/Vol] 4.20 10*6/uL Normal 4.2-5.4 [facility] Comment on above: Performed By: #### L 100.0100, L500.4050, [id number] ####[facility] [address] [place], [address] RDW SD 41.7 fl Normal 35.1-43.9 [facility] Comment on above: Performed By: #### L 100.0100, L500.4050, [id number] ####[facility] [address] [place], [address] WBC (Bld) [#/Vol] 5.3 10*3/uL Normal 4.4-11.0 [facility] Comment on above: Performed By: #### L 100.0100, L500.4050, [id number] ####[facility] [address] [place], [address] Carbon dioxide, total [Moles /volume] in Central venous bloodOrdered By: Serg Solis on 11-29-2024 CO2 [Moles/Vol] 22.8 mmol/L 21.0-32.0 [facility] Chloride assayOrdered By: Abundio Solis on 11-29-2024 Chloride [Moles/Vol] 100 mmol/L 98-108 [facility] Comprehensive Metabolic Prof ilon 11-29-2024 Albumin [Mass/Vol] 3.8 g/dL Normal 3.4-4.8 [facility] Comment on above: Performed By: #### L 100.0100, L500.4050, [id number] ####[facility] [address] [place], [address] Albumin/Globulin [Mass ratio] 1.4 {ratio} Normal 0.9-2.4 [facility] Comment on above: Performed By: #### L 100.0100, L500.4050, [id number] ####[facility] [address] [place], [address] ALK PHOS 75 U/L Normal 35-104 [facility] Comment on above: Performed By: #### L 100.0100, L500.4050, [id number] ####[facility] [address] [place], [address] ALT [Catalytic activity/Vol] 15 U/L Normal <=34 [facility] Comment on above: Performed By: #### L 100.0100, L500.4050, [id number] ####[facility] [address] [place], [address] AST [Catalytic activity/Vol] 23 U/L Normal <=31 [facility] Comment on above: Performed By: #### L 100.0100, L500.4050, [id number] ####[facility] [address] [place], [address] Bilirubin [Mass/Vol] 0.72 mg/dL Normal 0.00-1.30 [facility] Comment on above: Performed By: #### L 100.0100, L500.4050, [id number] ####[facility] [address] [place], [address] BUN/CRE 21.6 RATIO High 10-20 [facility] Comment on above: Performed By: #### L 100.0100, L500.4050, [id number] ####[facility] [address] [place], [address] Calcium [Mass/Vol] 9.0 mg/dL Normal 7.6-11.0 [facility] Comment on above: Performed By: #### L 100.0100, L500.4050, [id number] ####[facility] [address] [place], [address] Chloride [Moles/Vol] 100 mmol/L Normal 98-108 [facility] Comment on above: Performed By: #### L 100.0100, L500.4050, [id number] ####[facility] [address] [place], [address] CO2 [Moles/Vol] 22.8 mmol/L Normal 21.0-32.0 [facility] Comment on above: Performed By: #### L 100.0100, L500.4050, [id number] ####[facility] [address] [place], [address] Creatinine [Mass/Vol] 0.82 mg/dL Normal 0.70-1.20 [facility] Comment on above: Performed By: #### L 100.0100, L500.4050, [id number] ####[facility] [address] [place], [address] ECRCL 81.15 ml/min Normal 50-250 [facility] Comment on above: Performed By: #### L 100.0100, L500.4050, [id number] ####[facility] [address] [place], [address] GAP 11 Normal 5-15 [facility] Comment on above: Performed By: #### L 100.0100, L500.4050, [id number] ####[facility] [address] [place], [address] GFR/1.73 sq M.predicted among non-blacks MDRD (S/P/Bld) [Vol rate/Area] 73 mL/min/{1.73_m2} Normal >60 [facility] Comment on above: Result Comment: mL/m in/1.73m2 CKD-EPI Creatinine Equation (2020) Performed By: #### L 100.0100, L500.4050, [id number] ####[facility] [address] [place], [address] Globulin (S) [Mass/Vol] 2.7 g/dL Normal 2.2-4.2 [facility] Comment on above: Performed By: #### L 100.0100, L500.4050, [id number] ####[facility] [address] [place], [address] Glucose [Mass/Vol] 286 mg/dL High 70-99 [facility] Comment on above: Performed By: #### L 100.0100, L500.4050, [id number] ####[facility] [address] [place], [address] Potassium [Moles/Vol] 4.2 mmol/L Normal 3.3-5.1 [facility] Comment on above: Performed By: #### L 100.0100, L500.4050, [id number] ####[facility] [address] [place], [address] Sodium [Moles/Vol] 135 mmol/L Normal 133-145 [facility] Comment on above: Performed By: #### L 100.0100, L500.4050, [id number] ####[facility] [address] [place], [address] T PROT 6.5 g/dL Normal 5.9-8.4 [facility] Comment on above: Performed By: #### L 100.0100, L500.4050, [id number] ####[facility] [address] [place], [address] Urea nitrogen [Mass/Vol] 18 mg/dL Normal 4-19 [facility] [facility] Comment on above: Performed By: #### L 100.0100, L500.4050, L501.6901 ####[facility] [address] [place], [address] Emergency Department Summary on 05-15-2025 Emergency Department Summary Normal [facility] Eosinophil percentageOrdered By: Serg Solis on 11-29-2024 Eosinophils/100 WBC (Bld) 6.6 % High 0-5 [facility] Erythrocyte distribution wid th ratioOrdered By: Serg Solis on 11-29-2024 Erythrocyte distribution width (RBC) [Ratio] 12.6 % 11.6-14.6 [facility] Erythrocyte distribution wid th standard deviationOrdered By: Serg Solis on 11-29-2024 Erythrocyte distribution width (RBC) [Ratio] 41.7 fl 35.1-43.9 [facility] Glomerular filtration rate ( GFR) estimation/1.73 sq m using serum, plasma, or whole bOrdered By: Serg Solis on 11-29-2024 GFR/1.73 sq M.predicted among non-blacks MDRD (S/P/Bld) [Vol rate/Area] 73 mL/min/{1.73_m2} >60 [facility] Comment on above: mL/min/1.73m2 CKD-EP I Creatinine Equation (2020) [facility] deOrdered By: Serg Solis on 11-29-2024 Glucose [Mass/Vol] 265 mg/dL [facility] 74-106 [facility] Comment on above: MANAGEMENT OF PATIEN T CARE PER NURSING PROTOCOL Glucose [Mass/Vol] 275 mg/dL [address]106 [facility] Comment on above: MANAGEMENT OF PATIEN T CARE PER NURSING PROTOCOL Hematocrit Auto (Bld) [Volum e fraction]Ordered By: Serg Solis on 11-29-2024 Hematocrit (Bld) [Volume fraction] 38.2 % 37-47 [facility] Hemoglobin measurementOrdere d By: Serg Solis on 11-29-2024 Hemoglobin (Bld) [Mass/Vol] 12.6 g/dL 12.0-15.0 [facility] Immature granulocytes/100 WB C Auto (Bld)Ordered By: Serg Solis on 11-29-2024 Immature granulocytes/100 WBC (Bld) 0.000 % 0.0-0.9 [facility] Comment on above: IG% - Immature Granu locytes (promyelocytes, myelocytes and metamyelocytes) > 1% indicates that a LEFT SHIFT is Present. Ketones Test strip Ql (U)Ord ered By: Serg Solis on 11-29-2024 Ketones Ql (U) 15 mg/dl High Negative [facility] Laboratory - Chemistry and C hemistry - challengeOrdered By: Serg Solis on 11-29-2024 AST [Catalytic activity/Vol] 23 U/L <32 [facility] MCV (mean corpuscular volume ) determinationOrdered By: Serg Solis on 11-29-2024 MCV (RBC) [Entitic vol] 91.0 fL 81-99 [facility] Mean corpuscular hemoglobin (MCH) determinationOrdered By: Serg Solis on 11-29-2024 MCH (RBC) [Entitic mass] 30.0 pg 27.0-32.0 [facility] Mean corpuscular hemoglobin concentration (MCHC) determinationOrdered By: Serg Solis on 11-29-2024 MCHC (RBC) [Mass/Vol] 33.0 g/dL 32-36 [facility] Mean platelet volume determi nationOrdered By: Serg Solis on 11-29-2024 Platelet mean volume (Bld) [Entitic vol] 12.1 fL High 6.2-12.0 [facility] Microscopic analysis of urin e for red blood cells (RBC)Ordered By: Serg Solis on 11-29-2024 Microscopic analysis of urine for red blood cells (RBC) 0 SEEN /hpf 0-5 [facility] Monocyte percentageOrdered B y: Serg Solis on 11-29-2024 Monocytes/100 WBC (Bld) 7.2 % 0-10 [facility] Mucus LM Ql (Urine sed)Order ed By: Serg Solis on 11-29-2024 Mucus Ql (Urine sed) 0 SEEN /hpf [facility] Neutrophil percentageOrdered By: Serg Solis on 11-29-2024 Neutrophils/100 WBC (Bld) 64.8 % 47-70 [facility] Nitrite Test strip Ql (U)Ord ered By: Serg Solis on 11-29-2024 Nitrite Ql (U) Negative Negative [facility] Nucleated red blood cell per centageOrdered By: Serg Solis on 11-29-2024 Nucleated RBC/100 WBC (Bld) [Ratio] 0 % 0-5 [facility] Platelet countOrdered By: Abundio Solis on 11-29-2024 Platelets (Bld) [#/Vol] 153 10*3/uL 150-450 [facility] Potassium measurement (mass/ volume)Ordered By: Serg Solis on 11-29-2024 Potassium (Unsp spec) [Mass/Vol] 4.2 mmol/L 3.3-5.1 [facility] Protein Test strip Ql (U)Ord ered By: Serg Solis on 11-29-2024 Protein Ql (U) 15 mg/dl High Negative [facility] RBC Auto (Bld) [#/Vol]Ordere d By: Serg Solis on 11-29-2024 RBC (Bld) [#/Vol] 4.20 10*6/uL 4.2-5.4 [facility] Serum creatinine measurement (mass/volume)Ordered By: Serg Solis on 11-29-2024 Creatinine [Mass/Vol] 0.82 mg/dL 0.70-1.20 [facility] Serum globulin measurementOr dered By: Serg Solis on 11-29-2024 Globulin (S) [Mass/Vol] 2.7 g/dL 2.2-4.2 [facility] Serum glucose measurement (m ass/volume)Ordered By: Serg Solis on 11-29-2024 Glucose [Mass/Vol] 286 mg/dL High 70-99 [facility] Serum or plasma alanine ramírez otransferase (ALT) measurementOrdered By: Serg Solis on 11-29-2024 ALT [Catalytic activity/Vol] 15 U/L <35 [facility] Serum or plasma albumin zora urement (mass/volume)Ordered By: Serg Solis on 11-29-2024 Albumin [Mass/Vol] 3.8 g/dL 3.4-4.8 [facility] Serum or plasma albumin/glob ulin mass ratioOrdered By: Serg Solis on 11-29-2024 Albumin/Globulin [Mass ratio] 1.4 {ratio} 0.9-2.4 [facility] Serum or plasma alkaline dhiraj sphatase measurementOrdered By: Sreg Solis on 11-29-2024 ALP [Catalytic activity/Vol] 75 U/L 35-104 [facility] Serum or plasma calcium zora urement (mass/volume)Ordered By: Serg Solis on 11-29-2024 Calcium [Mass/Vol] 9.0 mg/dL 7.6-11.0 [facility] Serum or plasma urea nitroge n measurement (mass/volume)Ordered By: Serg Solis on 11-29-2024 Urea nitrogen [Mass/Vol] 18 mg/dL 4-19 [facility] Sodium levelOrdered By: Serg Solis on 11-29-2024 Sodium [Moles/Vol] 135 mmol/L 133-145 [facility] Squamous epithelial cells de tection in urine sediment by light microscopyOrdered By: Serg Solis on 11-29-2024 Epithelial cells.squamous LM Ql (Urine sed) 0-5 SEEN /hpf - [facility] Total proteinOrdered By: Ting Solis on 11-29-2024 Protein [Mass/Vol] 6.5 g/dL 5.9-8.4 [facility] Urinalysis, Completeon 11-29 EPI,SQUAMOUS 0-5 SEEN Normal - [facility] Comment on above: Order Comment: CLEAN CATCH Performed By: #### L 400.0001 ####[facility] [address] [place], [address] WBC 0-5 SEEN Normal 0-5 [facility] Comment on above: Order Comment: CLEAN CATCH Performed By: #### L 400.0001 ####[facility] [address] [place], [address] BACTERIA 0 SEEN Normal None Seen [facility] Comment on above: Order Comment: CLEAN CATCH Performed By: #### L 400.0001 ####[facility] [address] [place], [address] Mucus Ql (Urine sed) 0 SEEN Normal [facility] Comment on above: Order Comment: CLEAN CATCH Performed By: #### L 400.0001 ####[facility] [address] [place], [address] RBC 0 SEEN Normal 0-5 [facility] Comment on above: Order Comment: CLEAN CATCH Performed By: #### L 400.0001 ####[facility] [address] [place], [address] Urine clarityOrdered By: Ting Solis on 11-29-2024 Clarity (U) Clear Clear [facility] Urine color determinationOrd ered By: Serg Solis on 11-29-2024 Color (U) Straw Yellow [facility] Urine glucose detectionOrder ed By: Serg Solis on 11-29-2024 Glucose Ql (U) 50 mg/dl High Normal [facility] Urine leukocyte esterase det ection by dipstickOrdered By: Serg Solis on 11-29-2024 Leukocyte esterase Test strip Ql (U) Negative Negative [facility] Urine pHOrdered By: Serg cedillo on 11-29-2024 pH (U) 6.0 [pH] 5.0 - 8.0 [facility] Urine sediment bacteria coun t by microscopy (number/high power field)Ordered By: Serg Solis on 11-29-2024 Bacteria LM.HPF (Urine sed) [#/Area] 0 /[HPF] None Seen [facility] Urine specific gravity measu rementOrdered By: Serg Solis on 11-29-2024 Specific gravity (U) [Rel density] 1.015 1.002-1.030 [facility] Urine urobilinogen measureme ntOrdered By: Serg Solis on 11-29-2024 Urobilinogen Ql (U) Normal mg/dl Normal [facility] White blood cell (WBC) count Ordered By: Serg Solis on 11-29-2024 WBC (Bld) [#/Vol] 5.3 10*3/uL 4.4-11.0 [facility] White blood cell countOrdere d By: Serg Solis on 11-29-2024 White blood cell count 0-5 SEEN /hpf 0-5 [facility] Cardiology Visit Reporton Cardiology Visit Report Normal [facility] CNPTOUTREACHon 11-07-2024 CNPTOUTREACH Normal [facility] Bedside Glucoseon 11-03-2024 FINGERSTICK GLU 135 mg/dL High 74-106 [facility] Comment on above: Result Comment: MERCEDES GEMENT OF PATIENT CARE PER NURSING PROTOCOL Performed By: #### L 501.080 ####[facility] [address] [place], [place], [address] Emergency Department Summary on 11-03-2024 Emergency Department Summary Normal [facility] Glucose measurement at [facility] deOrdered By: Zay Juan on 11-03-2024 Glucose [Mass/Vol] 135 mg/dL High 74-106 [facility] Comment on above: MANAGEMENT OF PATIEN T CARE PER NURSING PROTOCOL Venous Duplex US, Unilateral on 11-03-2024 Venous Duplex US, Unilateral Normal [facility] CNOVon 10-31-2024 CNOV Normal [facility] CNPNon 10-29-2024 CNPN Normal [facility] CNPNon 10-25-2024 CNPN Normal [facility] Bedside Glucoseon 10-24-2024 FINGERSTICK GLU 194 mg/dL High 74-106 [facility] Comment on above: Result Comment: MERCEDES GEMENT OF PATIENT CARE PER NURSING PROTOCOL Performed By: #### L 501.080 ####[facility] [address] [place], [place], [address] Emergency Department Summary on 10-24-2024 Emergency Department Summary Normal [facility] Glucose measurement at [facility] deOrdered By: Benjamín Stanford on 10-24-2024 Bedside Glucose (Misc Panel) 194 mg/dL High 74-106 [facility] Comment on above: MANAGEMENT OF PATIEN T CARE PER NURSING PROTOCOL Glucose [Mass/Vol] 194 mg/dL High 74-106 [facility] Comment on above: MANAGEMENT OF PATIEN T CARE PER NURSING PROTOCOL Venous Duplex Imag/Limited/U nion 10-24-2024 Venous Duplex Imag/Limited/Uni Normal [facility] Absolute lymphocyte countOrd ered By: Holland Sanches on 10-19-2024 Lymphocytes Auto (Unsp spec) [#/Vol] 0.79 10*3/uL Low 0.83-4.51 [facility] Absolute neutrophil countOrd ered By: Holland Sanches on 10-19-2024 Neutrophils (Bld) [#/Vol] 4.2 10*3/uL 2.0-7.7 [facility] Anion gap in Serum or Plasma Ordered By: Holland Sanches on 10-19-2024 Anion gap [Moles/Vol] 12 mmol/L 5-15 [facility] Automated lymphocyte count a s percentage of total leukocytesOrdered By: Holland Sanches on 10-19-2024 Lymphocytes/100 WBC Auto (Unsp spec) 14.4 % Low 19-41 [facility] BUN/creatinine ratioOrdered By: Holland Sanches on 10-19-2024 Urea nitrogen/Creatinine [Mass ratio] 23.1 mg/mg High 10-20 [facility] Basic Metabolic Profile (BMP )on 10-19-2024 BUN/CRE 23.1 RATIO High 10-20 [facility] Comment on above: Performed By: #### L 100.0100, L501.6901, L500.2500 ####[facility] [address] [place], [address] Calcium [Mass/Vol] 9.3 mg/dL Normal 7.6-11.0 [facility] Comment on above: Performed By: #### L 100.0100, L501.6901, L500.2500 ####[facility] [address] [place], [address] Chloride [Moles/Vol] 101 mmol/L Normal 98-108 [facility] Comment on above: Performed By: #### L 100.0100, L501.6901, L500.2500 ####[facility] [address] [place], [address] CO2 [Moles/Vol] 23.3 mmol/L Normal 21.0-32.0 [facility] Comment on above: Performed By: #### L 100.0100, L501.6901, L500.2500 ####[facility] [address] [place], [address] Creatinine [Mass/Vol] 0.83 mg/dL Normal 0.70-1.20 [facility] Comment on above: Performed By: #### L 100.0100, L501.6901, L500.2500 ####[facility] [address] [place], [address] ECRCL 79.68 ml/min Normal 50-250 [facility] Comment on above: Performed By: #### L 100.0100, L501.6901, L500.2500 ####[facility] [address] [place], [address] GAP 12 Normal 5-15 [facility] Comment on above: Performed By: #### L 100.0100, L501.6901, L500.2500 ####[facility] [address] [place], [address] GFR/1.73 sq M.predicted among non-blacks MDRD (S/P/Bld) [Vol rate/Area] 72 mL/min/{1.73_m2} Normal >60 [facility] Comment on above: Result Comment: mL/m in/1.73m2 CKD-EPI Creatinine Equation (2020) Performed By: #### L 100.0100, L501.6901, L500.2500 ####[facility] [address] [place], [address] Glucose [Mass/Vol] 334 mg/dL High 70-99 [facility] Comment on above: Performed By: #### L 100.0100, L501.6901, L500.2500 ####[facility] [address] [place], [address] Potassium [Moles/Vol] 4.5 mmol/L Normal 3.3-5.1 [facility] Comment on above: Performed By: #### L 100.0100, L501.6901, L500.2500 ####[facility] [address] [place], [address] Sodium [Moles/Vol] 136 mmol/L Normal 133-145 [facility] Comment on above: Performed By: #### L 100.0100, L501.6901, L500.2500 ####[facility] [address] [place], [address] Urea nitrogen [Mass/Vol] 19 mg/dL Normal 4-19 [facility] Comment on above: Performed By: #### L 100.0100, L501.6901, L500.2500 ####[facility] [address] [place], [address] Basophil percentageOrdered B y: Holland Sanches on 10-19-2024 Basophils/100 WBC (Bld) 0.5 % 0-1 [facility] Bedside Glucoseon 10-19-2024 FINGERSTICK GLU 320 mg/dL High 74-106 [facility] Comment on above: Result Comment: MERCEDES GEMENT OF PATIENT CARE PER NURSING PROTOCOL Performed By: #### L 501.080 ####[facility] [address] [place], [address] FINGERSTICK GLU 339 mg/dL High 74-106 [facility] Comment on above: Result Comment: MERCEDES GEMENT OF PATIENT CARE PER NURSING PROTOCOL Performed By: #### L 501.080 ####[facility] [address] [place], [address] Beta hydroxybutyrate [Mass/V ol]Ordered By: Holland Sanches on 10-19-2024 Beta-Hydroxybutyric Acid mmol/L 0.8 mmol/L 0.0-0.3 [facility] Beta-Hydroxbytyrateon 2024 BETA-HYDROXYBUT 0.8 mmol/L Normal 0.0-0.3 [facility] Comment on above: Performed By: #### L 100.0100, L501.6901, L500.2500 ####[facility] [address] [place], [address] Beta-hydroxybutyrateOrdered By: Holland Sanches on 10-19-2024 Beta hydroxybutyrate [Mass/Vol] 0.8 mmol/L 0.0-0.3 [facility] Bilirubin Test strip Ql (U)O rdered By: Holland Sanches on 10-19-2024 Bilirubin Ql (U) Negative Negative [facility] CBC W/Diff, Automatedon Absolute Lymph 0.79 X10 3/uL Low 0.83-4.51 [facility] Comment on above: Performed By: #### L 100.0100, L501.6901, L500.2500 ####[facility] [address] [place], [address] Absolute Neut 4.2 X10 3/uL Normal 2.0-7.7 [facility] Comment on above: Performed By: #### L 100.0100, L501.6901, L500.2500 ####[facility] [address] [place], [address] Basophils/100 WBC (Bld) 0.5 % Normal 0-1 [facility] Comment on above: Performed By: #### L 100.0100, L501.6901, L500.2500 ####[facility] [address] [place], [address] Eosinophils/100 WBC (Bld) 2.5 % Normal 0-5 [facility] Comment on above: Performed By: #### L 100.0100, L501.6901, L500.2500 ####[facility] [address] [place], [address] Erythrocyte distribution width (RBC) [Ratio] 12.7 % Normal 11.6-14.6 [facility] Comment on above: Performed By: #### L 100.0100, L501.6901, L500.2500 ####[facility] [address] [place], [address] Hematocrit (Bld) [Volume fraction] 39.4 % Normal 37-47 [facility] Comment on above: Performed By: #### L 100.0100, L501.6901, L500.2500 ####[facility] [address] [place], [address] Hemoglobin (Bld) [Mass/Vol] 12.9 g/dL Normal 12.0-15.0 [facility] Comment on above: Performed By: #### L 100.0100, L501.6901, L500.2500 ####[facility] [address] [place], [address] IG% 0.000 Normal 0.0-0.9 [facility] Comment on above: Result Comment: IG% - Immature Granulocytes (promyelocytes, myelocytes andmetamyelocytes) > 1% indicates that a LEFT SHIFT is Present. Performed By: #### L 100.0100, L501.6901, L500.2500 ####[facility] [address] [place], [address] Lymphocytes/100 WBC (Bld) 14.4 % Low 19-41 [facility] Comment on above: Performed By: #### L 100.0100, L501.6901, L500.2500 ####[facility] [address] [place], [address] MCH (RBC) [Entitic mass] 29.7 pg Normal 27.0-32.0 [facility] Comment on above: Performed By: #### L 100.0100, L501.6901, L500.2500 ####[facility] [address] [place], [address] MCHC (RBC) [Mass/Vol] 32.7 g/dL Normal 32-36 [facility] Comment on above: Performed By: #### L 100.0100, L501.6901, L500.2500 ####[facility] [address] [place], [address] MCV (RBC) [Entitic vol] 90.6 fL Normal 81-99 [facility] Comment on above: Performed By: #### L 100.0100, L501.6901, L500.2500 ####[facility] [address] [place], [address] Monocytes/100 WBC (Bld) 6.4 % Normal 0-10 [facility] Comment on above: Performed By: #### L 100.0100, L501.6901, L500.2500 ####[facility] [address] [place], [address] Neutrophils/100 WBC (Bld) 76.2 % High 47-70 [facility] Comment on above: Performed By: #### L 100.0100, L501.6901, L500.2500 ####[facility] [address] [place], [address] Nucleated RBC (Bld) [#/Vol] 0 10*3/uL Normal 0-5 [facility] Comment on above: Performed By: #### L 100.0100, L501.6901, L500.2500 ####[facility] [address] [place], [address] Platelet mean volume (Bld) [Entitic vol] 12.9 fL High 6.2-12.0 [facility] Comment on above: Performed By: #### L 100.0100, L501.6901, L500.2500 ####[facility] [address] [place], [address] Platelets (Bld) [#/Vol] 159 10*3/uL Normal 150-450 [facility] Comment on above: Performed By: #### L 100.0100, L501.6901, L500.2500 ####[facility] [address] [place], [address] RBC (Bld) [#/Vol] 4.35 10*6/uL Normal 4.2-5.4 [facility] Comment on above: Performed By: #### L 100.0100, L501.6901, L500.2500 ####[facility] [address] [place], [address] RDW SD 41.8 fl Normal 35.1-43.9 [facility] Comment on above: Performed By: #### L 100.0100, L501.6901, L500.2500 ####[facility] [address] [place], [address] WBC (Bld) [#/Vol] 5.5 10*3/uL Normal 4.4-11.0 [facility] Comment on above: Performed By: #### L 100.0100, L501.6901, L500.2500 ####[facility] [address] [place], [address] CNPNon 10-19-2024 CNPN Normal [facility] Carbon dioxide, total [Moles /volume] in Central venous bloodOrdered By: Holland Sanches on 10-19-2024 CO2 [Moles/Vol] 23.3 mmol/L 21.0-32.0 [facility] Chloride assayOrdered By: Michael Sanches on 10-19-2024 Chloride [Moles/Vol] 101 mmol/L 98-108 [facility] Emergency Department Summary on 10-19-2024 Emergency Department Summary Normal [facility] Eosinophil percentageOrdered By: Holland Sanches on 10-19-2024 Eosinophils/100 WBC (Bld) 2.5 % 0-5 [facility] Epithelial cells.squamous LM Ql (Urine sed)Ordered By: Holland Sanches on 10-19-2024 Epithelial cells.squamous LM.HPF (Urine sed) [#/Area] 0 /[HPF] 5-10 [facility] Erythrocyte distribution wid th (RBC) [Ratio]Ordered By: Holland Sanches on 10-19-2024 Erythrocyte distribution width (RBC) [Entitic vol] 41.8 fL 35.1-43.9 [facility] Erythrocyte distribution wid th ratioOrdered By: Holland Sanches on 10-19-2024 Erythrocyte distribution width (RBC) [Ratio] 12.7 % 11.6-14.6 [facility] Erythrocyte distribution wid th standard deviationOrdered By: Holland Sanches on 10-19-2024 Erythrocyte distribution width (RBC) [Ratio] 41.8 fl 35.1-43.9 [facility] Estimation of creatinine kimberly aranceOrdered By: Holland Sanches on 10-19-2024 Estimated Creatinine Clearance Calc 79.68 ml/min 50-250 [facility] GFR/1.73 sq M.predicted du g non-blacks MDRD (S/P/Bld) [Vol rate/Area]Ordered By: Holland Sanches on 10-19-2024 Estimated GFR (MDRD) Non-Af Amer 72 >60 [facility] Comment on above: mL/min/1.73m2 CKD-EP I Creatinine Equation (2020) Glomerular filtration rate ( GFR) estimation/1.73 sq m using serum, plasma, or whole bOrdered By: Holland Sanches on 10-19-2024 GFR/1.73 sq M.predicted among non-blacks MDRD (S/P/Bld) [Vol rate/Area] 72 mL/min/{1.73_m2} >60 [facility] Comment on above: mL/min/1.73m2 CKD-EP I Creatinine Equation (2020) Glucose Ql (U)Ordered By: Michael Sanches on 10-19-2024 Glucose (U) [Mass/Vol] 1000 mg/dL High Normal [facility] Glucose measurement at bedsi deOrdered By: Holland Sanches on 10-19-2024 Bedside Glucose (Misc Panel) 320 mg/dL High 74-106 [facility] Comment on above: MANAGEMENT OF PATIEN T CARE PER NURSING PROTOCOL Glucose [Mass/Vol] 320 mg/dL High 74-106 [facility] Comment on above: MANAGEMENT OF PATIEN T CARE PER NURSING PROTOCOL HIP, UNI W/ Pelvis 2-3 Views on 10-19-2024 HIP, UNI W/ Pelvis 2-3 Views Normal [facility] Hematocrit Auto (Bld) [Volum e fraction]Ordered By: Holland Sanches on 10-19-2024 Hematocrit (Bld) [Volume fraction] 39.4 % 37-47 [facility] Hemoglobin measurementOrdere d By: Holland Sanches on 10-19-2024 Hemoglobin (Bld) [Mass/Vol] 12.9 g/dL 12.0-15.0 [facility] Immature granulocytes/100 WB C Auto (Bld)Ordered By: Holland Sanches on 10-19-2024 Immature granulocytes/100 WBC (Bld) 0.000 % 0.0-0.9 [facility] Comment on above: IG% - Immature Granu locytes (promyelocytes, myelocytes and metamyelocytes) > 1% indicates that a LEFT SHIFT is Present. Ketones Test strip Ql (U)Ord ered By: Holland Sanches on 10-19-2024 Ketones Ql (U) 50 mg/dl High Negative [facility] Lymphocytes Auto (Unsp spec) [#/Vol]Ordered By: Holland Sanches on 10-19-2024 Lymphocytes (Bld) [#/Vol] 0.79 10*3/uL Low 0.83-4.51 [facility] Lymphocytes/100 WBC Auto (Un sp spec)Ordered By: Holland Sanches on 10-19-2024 Lymphocytes/100 WBC (Bld) 14.4 % Low 19-41 [facility] MCV (mean corpuscular volume ) determinationOrdered By: Holland Sanches on 10-19-2024 MCV (RBC) [Entitic vol] 90.6 fL 81-99 [facility] Mean corpuscular hemoglobin (MCH) determinationOrdered By: Holland Sanches on 10-19-2024 MCH (RBC) [Entitic mass] 29.7 pg 27.0-32.0 [facility] Mean corpuscular hemoglobin concentration (MCHC) determinationOrdered By: Holland Sanches on 10-19-2024 MCHC (RBC) [Mass/Vol] 32.7 g/dL 32-36 [facility] Mean platelet volume determi nationOrdered By: Holland Sanches on 10-19-2024 Platelet mean volume (Bld) [Entitic vol] 12.9 fL High 6.2-12.0 [facility] Microscopic analysis of urin e for red blood cells (RBC)Ordered By: Holland Sanches on 10-19-2024 Microscopic analysis of urine for red blood cells (RBC) 0 SEEN /hpf 0-5 [facility] Urine RBC 0 SEEN /hpf 0-5 [facility] Monocyte percentageOrdered B y: Holland Sanches on 10-19-2024 Monocytes/100 WBC (Bld) 6.4 % 0-10 [facility] Mucus LM Ql (Urine sed)Order ed By: Holland Sanches on 10-19-2024 Mucus Ql (Urine sed) 0 SEEN /hpf [facility] Neutrophil percentageOrdered By: Holland Sanches on 10-19-2024 Neutrophils/100 WBC (Bld) 76.2 % High 47-70 [facility] Nitrite Test strip Ql (U)Ord ered By: Holland Sanches on 10-19-2024 Nitrite Ql (U) Negative Negative [facility] Nucleated red blood cell per centageOrdered By: Holland Sanches on 10-19-2024 Nucleated RBC/100 WBC (Bld) [Ratio] 0 % 0-5 [facility] Platelet countOrdered By: Michael Sanches on 10-19-2024 Platelets (Bld) [#/Vol] 159 10*3/uL 150-450 [facility] Potassium (Unsp spec) [Mass/ Vol]Ordered By: Holland Sanches on 10-19-2024 Potassium [Moles/Vol] 4.5 mmol/L 3.3-5.1 [facility] Potassium measurement (mass/ volume)Ordered By: Holland Sanches on 10-19-2024 Potassium (Unsp spec) [Mass/Vol] 4.5 mmol/L 3.3-5.1 [facility] Protein Test strip Ql (U)Ord ered By: Holland Sanches on 10-19-2024 Protein Ql (U) Negative Negative [facility] RBC Auto (Bld) [#/Vol]Ordere d By: Holland Sanches on 10-19-2024 RBC (Bld) [#/Vol] 4.35 10*6/uL 4.2-5.4 [facility] Serum creatinine measurement (mass/volume)Ordered By: Holland Sanches on 10-19-2024 Creatinine [Mass/Vol] 0.83 mg/dL 0.70-1.20 [facility] Serum glucose measurement (m ass/volume)Ordered By: Holland Sanches on 10-19-2024 Glucose [Mass/Vol] 334 mg/dL High 70-99 [facility] Serum or plasma calcium zora urement (mass/volume)Ordered By: Holland Sanches on 10-19-2024 Calcium [Mass/Vol] 9.3 mg/dL 7.6-11.0 [facility] Serum or plasma urea nitroge n measurement (mass/volume)Ordered By: Holland Sanches on 10-19-2024 Urea nitrogen [Mass/Vol] 19 mg/dL 4-19 [facility] Sodium levelOrdered By: Frank Sanches on 10-19-2024 Sodium [Moles/Vol] 136 mmol/L 133-145 [facility] Squamous epithelial cells de tection in urine sediment by light microscopyOrdered By: Holland Sanches on 10-19-2024 Epithelial cells.squamous LM Ql (Urine sed) 0 SEEN /hpf 5-10 [facility] Urinalysis, Completeon 10-19 WBC 0-5 SEEN Normal 0-5 [facility] Comment on above: Order Comment: CLEAN CATCH Performed By: #### L 400.0001 ####[facility] [address] [place], [place], [id number] BACTERIA 0 SEEN Normal None Seen [facility] Comment on above: Order Comment: CLEAN CATCH Performed By: #### L 400.0001 ####[facility] [address] [place], [place], [id number] EPI,SQUAMOUS 0 SEEN Normal -10 [facility] Comment on above: Order Comment: CLEAN CATCH Performed By: #### L 400.0001 ####[facility] [address] [place], [place], [id number] Mucus Ql (Urine sed) 0 SEEN Normal [facility] Comment on above: Order Comment: CLEAN CATCH Performed By: #### L 400.0001 ####[facility] [address] [place], [place], [id number] RBC 0 SEEN Normal 0-5 [facility] Comment on above: Order Comment: CLEAN CATCH Performed By: #### L 400.0001 ####[facility] [address] [place], [place], [id number] Urine blood detectionOrdered By: Holland Sanches on 10-19-2024 Urine Occult Blood 10 /ul High Negative [facility] Urine clarityOrdered By: Fahad Sanches on 10-19-2024 Clarity (U) Clear Clear [facility] Urine color determinationOrd ered By: Holland Sanches on 10-19-2024 Color (U) Yellow Yellow [facility] Urine glucose detectionOrder ed By: Holland Sanches on 10-19-2024 Glucose Ql (U) 1000 mg/dl High Normal [facility] Urine leukocyte esterase det ection by dipstickOrdered By: Holland Sanches on 10-19-2024 Leukocyte esterase Test strip Ql (U) 25 /ul High Negative [facility] Urine pHOrdered By: Holland saunders on 10-19-2024 pH (U) 6.0 [pH] 5.0 - 8.0 [facility] Urine sediment bacteria coun t by microscopy (number/high power field)Ordered By: Holland Sanches on 10-19-2024 Bacteria LM.HPF (Urine sed) [#/Area] 0 /[HPF] None Seen [facility] Urine specific gravity measu rementOrdered By: Holland Sanches on 10-19-2024 Specific gravity (U) [Rel density] 1.015 1.002-1.030 [facility] Urine urobilinogen measureme ntOrdered By: Holland Sanches on 10-19-2024 Urobilinogen Ql (U) Normal mg/dl Normal [facility] Urobilinogen Ql (U)Ordered B y: Holland Sanches on 10-19-2024 Urine Urobilinogen Normal mg/dl Normal [facility] White blood cell (WBC) count Ordered By: Holland Sanches on 10-19-2024 WBC (Bld) [#/Vol] 5.5 10*3/uL 4.4-11.0 [facility] White blood cell countOrdere d By: Holland Sanches on 10-19-2024 Urine WBC 0-5 SEEN /hpf 0-5 [facility] White blood cell count 0-5 SEEN /hpf 0-5 [facility] CNOVon 10-15-2024 CNOV Normal [facility] CNPNon 10-04-2024 CNPN Normal [facility] ALBUMIN/CREATININE RATIO, UR INEon 10-01-2024 Albumin DL <= 20 mg/L (U) [Mass/Vol] mg/dL Normal [facility] Comment on above: Order Comment: Speci men Type: URINE SPECIMENOrdering Facility: [facility] Address: [address] [place] [address] Performed By: #### U ACR ####[facility] LABCLIA [id number] [place] [address] [place] Albumin/Creatinine (U) [Mass ratio] <27 Normal <30 [facility] Comment on above: Order Comment: Ruma deluna Type: URINE SPECIMENOrdering Facility: [facility] Address: [address] [place] [address] Result Comment: Adul t Male and Female Nephrotic Criteria:<30 mg/g is considered normal to mildly runlkrqgj39-400 mg/g is considered moderately increased>300 mg/g is considered severely increasedKDIGO. (2013). KDIGO 2012 Clinical Practice Guideline for the Evaluation and Management of Chronic Kidney Disease. Official Journal of the International Society of Nephrology, 3(1), 1-150. Performed By: #### U ACR ####[facility] LABCLIA [id number] [place] [id number] [place] Creatinine (U) [Mass/Vol] 44.9 mg/dL Normal 20.0-300.0 [facility] Comment on above: Order Comment: Speci men Type: URINE SPECIMENOrdering Facility: [facility] Address: [address] [place] [address] Performed By: #### U ACR ####[facility] LABCLIA [id number] [place] [address] [place] CBC panel Auto (Bld)on 10-01 Erythrocyte distribution width (RBC) [Ratio] 12.9 % Normal 11.5-15.0 [facility] Comment on above: Order Comment: Speci men Type: BLOOD SPECIMENOrdering Facility: [facility] Address: [address] [place] [address] Performed By: #### 5 8410-2 ####[facility] INSTITUTENCGm [id number] [place] [address] [place] Hematocrit (Bld) [Volume fraction] 39.1 % Normal 36.0-46.0 [facility] Comment on above: Order Comment: Speci men Type: BLOOD SPECIMENOrdering Facility: [facility] Address: [address] [place] [address] Performed By: #### 5 8410-2 ####[facility] [id number] [place] [address] [place] Hemoglobin (Bld) [Mass/Vol] 12.9 g/dL Normal 11.5-15.5 [facility] Comment on above: Order Comment: Speci men Type: BLOOD SPECIMENOrdering Facility: [facility] Address: [address] [place] [address] Performed By: #### 5 8410-2 ####[facility] INSTITUTENCLIA [id number] [place] [address] [place] MCH (RBC) [Entitic mass] 29.7 pg Normal 26.0-34.0 [facility] Comment on above: Order Comment: Speci men Type: BLOOD SPECIMENOrdering Facility: [facility] Address: [address] [place] [address] Performed By: #### 5 8410-2 ####[facility] PHILIPA [id number] [place] [address] [place] MCHC (RBC) [Mass/Vol] 33.0 g/dL Normal 30.5-36.0 [facility] Comment on above: Order Comment: Speci men Type: BLOOD SPECIMENOrdering Facility: [facility] Address: [address] [place] [address] Performed By: #### 5 8410-2 ####[facility] INSTITUTERICARDOA [id number] [place] [address] [place] MCV (RBC) [Entitic vol] 90.1 fL Normal 80.0-100.0 [facility] Comment on above: Order Comment: Speci men Type: BLOOD SPECIMENOrdering Facility: [facility] Address: [address] [place] [address] Performed By: #### 5 8410-2 ####[facility] [id number] [place] [address] [place] Nucleated RBC (Bld) [#/Vol] 10*3/uL Normal <0.01 [facility] Comment on above: Order Comment: Speci men Type: BLOOD SPECIMENOrdering Facility: [facility] Address: [address] [place] [address] Performed By: #### 5 8410-2 ####[facility]ENTERLIA [id number] [place] [address] [place] Platelet mean volume (Bld) [Entitic vol] 11.9 fL Normal 9.0-12.7 [facility] Comment on above: Order Comment: Speci men Type: BLOOD SPECIMENOrdering Facility: [facility] Address: [address] [place] [address] Performed By: #### 5 8410-2 ####[facility] CENTERLIA [id number] [place] [address] [place] Platelets (Bld) [#/Vol] 206 10*3/uL Normal 150-400 [facility] Comment on above: Order Comment: Speci men Type: BLOOD SPECIMENOrdering Facility: [facility] Address: [address] [place] [address] Performed By: #### 5 8410-2 ####[facility] INSTITUTEPADMINIA [id number] [place] [address] [place] RBC (Bld) [#/Vol] 4.34 10*6/uL Normal 3.90-5.20 [facility] Comment on above: Order Comment: Speci men Type: BLOOD SPECIMENOrdering Facility: [facility] Address: [address] [place] [address] Performed By: #### 5 8410-2 ####[facility] INSTITUTENCLIA [id number] [place] [address] [place] WBC (Bld) [#/Vol] 6.04 10*3/uL Normal 3.70-11.00 [facility] Comment on above: Order Comment: Speci men Type: BLOOD SPECIMENOrdering Facility: [facility] Address: [address] [place] [address] Performed By: #### 5 8410-2 ####[facility] INSTITUTENCLIA [id number] [place] [address] [place] CNCNPATEDon 10-01-2024 CNCNPATED Normal [facility] Comprehensive metabolic 2000 panelon 10-01-2024 Albumin [Mass/Vol] 3.9 g/dL Normal 3.9-4.9 [facility] Comment on above: Order Comment: Speci men Type: BLOOD SPECIMENOrdering Facility: [facility] Address: [address] [place] [address] Performed By: #### 2 4323-8 ####[facility]ITALOSTER MILLTOWNCLIA [id number] [place] [address] [place] ALP [Catalytic activity/Vol] 74 U/L Normal 34-123 [facility] Comment on above: Order Comment: Speci men Type: BLOOD SPECIMENOrdering Facility: [facility] Address: [address] [place] [address] Performed By: #### 2 4323-8 ####[facility] MILLTOWNCLIA [id number] [place] [address] [place] ALT [Catalytic activity/Vol] 21 U/L Normal 7-38 [facility] Comment on above: Order Comment: Speci men Type: BLOOD SPECIMENOrdering Facility: [facility] Address: [address] [place] [address] Performed By: #### 2 4323-8 ####[facility]ITALWNCLIA [id number] [place] [address] [place] Anion gap [Moles/Vol] 9 mmol/L Normal 8-15 [facility] Comment on above: Order Comment: Speci men Type: BLOOD SPECIMENOrdering Facility: [facility] Address: [address] [place] [address] Performed By: #### 2 4323-8 ####[facility] MATTHEWWNCLIA [id number] [place] [address] [place] AST [Catalytic activity/Vol] 21 U/L Normal 13-35 [facility] Comment on above: Order Comment: Speci men Type: BLOOD SPECIMENOrdering Facility: [facility] Address: [address] [place] [address] Performed By: #### 2 4323-8 ####[facility] MILLTOWNCLIA [id number] [place] [address] [place] Bilirubin [Mass/Vol] 0.6 mg/dL Normal 0.2-1.3 [facility] Comment on above: Order Comment: Speci men Type: BLOOD SPECIMENOrdering Facility: [facility] Address: [address] [place] [address] Performed By: #### 2 4323-8 ####[facility] WAQASNCLIA [id number] [place] [address] [place] Calcium [Mass/Vol] 9.4 mg/dL Normal 8.5-10.2 [facility] Comment on above: Order Comment: Speci men Type: BLOOD SPECIMENOrdering Facility: [facility] Address: [address] [place] [address] Performed By: #### 2 4323-8 ####[facility] INSTITUTENCLIA [id number] [place] [address] [place] Chloride [Moles/Vol] 102 mmol/L Normal 98-107 [facility] Comment on above: Order Comment: Speci men Type: BLOOD SPECIMENOrdering Facility: [facility] Address: [address] [place] [address] Performed By: #### 2 4323-8 ####[facility] INSTITUTENCLIA [id number] [place] [address] [place] CO2 [Moles/Vol] 29 mmol/L Normal 22-30 [facility] Comment on above: Order Comment: Speci men Type: BLOOD SPECIMENOrdering Facility: [facility] Address: [address] [place] [address] Performed By: #### 2 4323-8 ####[facility] INSTITUTENCLIA [id number] [place] [address] [place] Creatinine [Mass/Vol] 0.69 mg/dL Normal 0.58-0.96 [facility] Comment on above: Order Comment: Speci men Type: BLOOD SPECIMENOrdering Facility: [facility] Address: [address] [place] [address] Performed By: #### 2 4323-8 ####[facility] HOSPITALWNCLI [id number] [place] [address] [place] Creatinine and Glomerular filtration rate.predicted panel (S/P/Bld) 88 mL/min/1.73m??? Normal >=60 [facility] Comment on above: Order Comment: Ruma deluna Type: BLOOD SPECIMENOrdering Facility: [facility] Address: [address] [place] [address] Result Comment: Judith mated Glomerular Filtration Rate (eGFR) is calculated using the 2020 CKD-EPI creatinine equation. This equation utilizes serum creatinine, sex, and age as parameters. The creatinine assay has traceable calibration to isotope dilution-mass spectrometry. Refer to KDIGO guidelines for clinical interpretation. In patients with unstable renal function, e.g. those with acute kidney injury, the eGFR may not accurately reflect actual GFR. Performed By: #### 2 4323-8 ####[facility] CENTERLIA [id number] [place] [address] [place] Glucose [Mass/Vol] 173 mg/dL High 74-99 [facility] Comment on above: Order Comment: Ruma deluna Type: BLOOD SPECIMENOrdering Facility: [facility] Address: [address] [place] [address] Result Comment: The [place] Diabetes Association (ADA) provides guidance for cutoff values for fasting glucose and random glucose. The ADA defines fasting as no caloric intake for at least 8 hours. Fasting plasma glucose results between 100 to 125 mg/dL indicate increased risk for diabetes (prediabetes).Fasting plasma glucose results greater than or equal to 126 mg/dL meet the criteria for diagnosis of diabetes. In the absence of unequivocal hyperglycemia, results should be confirmed by repeat testing. In a patient with classic symptoms of hyperglycemia or hyperglycemic crisis, random plasma glucose results greater than or equal to 200 mg/dL meet the criteria for diagnosis of diabetes.Reference: Standards of Medical Care in Diabetes 2016, [place] [employer] Association. Diabetes Care. 2016.39(Suppl 1). Performed By: #### 2 4323-8 ####[facility] INSTITUTENCT[facility] [id number] [place] [address] [place] Potassium [Moles/Vol] 4.4 mmol/L Normal 3.7-5.1 [facility] Comment on above: Order Comment: Speci men Type: BLOOD SPECIMENOrdering Facility: [facility] Address: [address] [place] [address] Performed By: #### 2 4323-8 ####[facility] MILLTOWNCLIA [id number] [place] [address] [place] Protein [Mass/Vol] 6.5 g/dL Normal 6.3-8.0 [facility] Comment on above: Order Comment: Speci men Type: BLOOD SPECIMENOrdering Facility: [facility] Address: [address] [place] [address] Performed By: #### 2 4323-8 ####[facility] MILLWNCLIA [id number] [place] [address] [place] Sodium [Moles/Vol] 140 mmol/L Normal 136-144 [facility] Comment on above: Order Comment: Speci men Type: BLOOD SPECIMENOrdering Facility: [facility] Address: [address] [place] [address] Performed By: #### 2 4323-8 ####[facility] MILLTOWNCLIA [id number] [place] [address] [place] Urea nitrogen [Mass/Vol] 17 mg/dL Normal 7-21 [facility] Comment on above: Order Comment: Speci men Type: BLOOD SPECIMENOrdering Facility: [facility] Address: [address] [place] [address] Performed By: #### 2 4323-8 ####[facility] MILLTOWNCLIA [id number] [place] [address] [place] CNPNon 09-27-2024 CNPN Normal [facility] CNOVon 09-26-2024 CNOV Normal [facility] Absolute lymphocyte countOrd ered By: Amber Martino on 09-23-2024 Lymphocytes Auto (Unsp spec) [#/Vol] 0.69 10*3/uL Low 0.83-4.51 [facility] Absolute neutrophil countOrd ered By: Amber Martino on 09-23-2024 Neutrophils (Bld) [#/Vol] 2.7 10*3/uL 2.0-7.7 [facility] Anion gap in Serum or Plasma Ordered By: Amber Martino on 09-23-2024 Anion gap [Moles/Vol] 11 mmol/L 5-15 [facility] Automated lymphocyte count a s percentage of total leukocytesOrdered By: Amber Martino on 09-23-2024 Lymphocytes/100 WBC Auto (Unsp spec) 17.6 % Low 19-41 [facility] BUN/creatinine ratioOrdered By: Amber Martino on 09-23-2024 Urea nitrogen/Creatinine [Mass ratio] 20.4 mg/mg High 10-20 [facility] Basic Metabolic Profile (BMP )on 09-23-2024 BUN/CRE 20.4 RATIO High 10-20 [facility] Comment on above: Performed By: #### L 500.2500, L100.0100 ####[facility] [address] [place], [address] Calcium [Mass/Vol] 8.5 mg/dL Normal 7.6-11.0 [facility] Comment on above: Performed By: #### L 500.2500, L100.0100 ####[facility] [address] [place], [address] Chloride [Moles/Vol] 106 mmol/L Normal 98-108 [facility] Comment on above: Performed By: #### L 500.2500, L100.0100 ####[facility] [address] [place], [address] CO2 [Moles/Vol] 21.6 mmol/L Normal 21.0-32.0 [facility] Comment on above: Performed By: #### L 500.2500, L100.0100 ####[facility] [address] [place], [address] Creatinine [Mass/Vol] 0.70 mg/dL Normal 0.70-1.20 [facility] Comment on above: Performed By: #### L 500.2500, L100.0100 ####[facility] [address] [place], [address] ECRCL 84.46 ml/min Normal 50-250 [facility] Comment on above: Performed By: #### L 500.2500, L100.0100 ####[facility] [address] [place], [address] GAP 11 Normal 5-15 [facility] Comment on above: Performed By: #### L 500.2500, L100.0100 ####[facility] [address] [place], [address] GFR/1.73 sq M.predicted among non-blacks MDRD (S/P/Bld) [Vol rate/Area] 88 mL/min/{1.73_m2} Normal >60 [facility] Comment on above: Result Comment: mL/m in/1.73m2 CKD-EPI Creatinine Equation (2020) Performed By: #### L 500.2500, L100.0100 ####[facility] [address] [place], [address] Glucose [Mass/Vol] 125 mg/dL High 70-99 [facility] Comment on above: Performed By: #### L 500.2500, L100.0100 ####[facility] [address] [place], [address] Potassium [Moles/Vol] 3.7 mmol/L Normal 3.3-5.1 [facility] Comment on above: Performed By: #### L 500.2500, L100.0100 ####[facility] [address] [place], [address] Sodium [Moles/Vol] 139 mmol/L Normal 133-145 [facility] Comment on above: Performed By: #### L 500.2500, L100.0100 ####[facility] [address] [place], [address] Urea nitrogen [Mass/Vol] 14 mg/dL Normal 4-19 [facility] Comment on above: Performed By: #### L 500.2500, L100.0100 ####[facility] [address] [place], [address] Basophil percentageOrdered B y: Amber Martino on 09-23-2024 Basophils/100 WBC (Bld) 0.3 % 0-1 [facility] CBC W/Diff, Automatedon Absolute Lymph 0.69 X10 3/uL Low 0.83-4.51 [facility] Comment on above: Performed By: #### L 500.2500, L100.0100 ####[facility] [address] [place], [address] Absolute Neut 2.7 X10 3/uL Normal 2.0-7.7 [facility] Comment on above: Performed By: #### L 500.2500, L100.0100 ####[facility] [address] [place], [address] Basophils/100 WBC (Bld) 0.3 % Normal 0-1 [facility] Comment on above: Performed By: #### L 500.2500, L100.0100 ####[facility] [address] [place], [address] Eosinophils/100 WBC (Bld) 1.5 % Normal 0-5 [facility] Comment on above: Performed By: #### L 500.2500, L100.0100 ####[facility] [address] [place], [address] Erythrocyte distribution width (RBC) [Ratio] 13.0 % Normal 11.6-14.6 [facility] Comment on above: Performed By: #### L 500.2500, L100.0100 ####[facility] [address] [place], [address] Hematocrit (Bld) [Volume fraction] 35.9 % Low 37-47 [facility] Comment on above: Performed By: #### L 500.2500, L100.0100 ####[facility] [address] [place], [address] Hemoglobin (Bld) [Mass/Vol] 11.9 g/dL Low 12.0-15.0 [facility] Comment on above: Performed By: #### L 500.2500, L100.0100 ####[facility] [address] [place], [address] IG% 0.300 Normal 0.0-0.9 [facility] Comment on above: Result Comment: IG% - Immature Granulocytes (promyelocytes, myelocytes andmetamyelocytes) > 1% indicates that a LEFT SHIFT is Present. Performed By: #### L 500.2500, L100.0100 ####[facility] [address] [place], [address] Lymphocytes/100 WBC (Bld) 17.6 % Low 19-41 [facility] Comment on above: Performed By: #### L 500.2500, L100.0100 ####[facility] [address] [place], [address] MCH (RBC) [Entitic mass] 29.4 pg Normal 27.0-32.0 [facility] Comment on above: Performed By: #### L 500.2500, L100.0100 ####[facility] [address] [place], [address] MCHC (RBC) [Mass/Vol] 33.1 g/dL Normal 32-36 [facility] Comment on above: Performed By: #### L 500.2500, L100.0100 ####[facility] [address] [place], [address] MCV (RBC) [Entitic vol] 88.6 fL Normal 81-99 [facility] Comment on above: Performed By: #### L 500.2500, L100.0100 ####[facility] [address] [place], [address] Monocytes/100 WBC (Bld) 12.7 % High 0-10 [facility] Comment on above: Performed By: #### L 500.2500, L100.0100 ####[facility] [address] [place], [address] Neutrophils/100 WBC (Bld) 67.6 % Normal 47-70 [facility] Comment on above: Performed By: #### L 500.2500, L100.0100 ####[facility] [address] [place], [address] Nucleated RBC (Bld) [#/Vol] 0 10*3/uL Normal 0-5 [facility] Comment on above: Performed By: #### L 500.2500, L100.0100 ####[facility] [address] [place], [address] Platelet mean volume (Bld) [Entitic vol] 12.3 fL High 6.2-12.0 [facility] Comment on above: Performed By: #### L 500.2500, L100.0100 ####[facility] [address] [place], [address] Platelets (Bld) [#/Vol] 169 10*3/uL Normal 150-450 [facility] Comment on above: Performed By: #### L 500.2500, L100.0100 ####[facility] [address] [place], [address] RBC (Bld) [#/Vol] 4.05 10*6/uL Low 4.2-5.4 [facility] Comment on above: Performed By: #### L 500.2500, L100.0100 ####[facility] [address] [place], [address] RDW SD 42.2 fl Normal 35.1-43.9 [facility] Comment on above: Performed By: #### L 500.2500, L100.0100 ####[facility] [address] [place], [address] WBC (Bld) [#/Vol] 3.9 10*3/uL Low 4.4-11.0 [facility] Comment on above: Performed By: #### L 500.2500, L100.0100 ####[facility] [address] [place], [address] Carbon dioxide, total [Moles /volume] in Central venous bloodOrdered By: Amber Martino on 09-23-2024 CO2 [Moles/Vol] 21.6 mmol/L 21.0-32.0 [facility] Chloride assayOrdered By: Daniel Martino on 09-23-2024 Chloride [Moles/Vol] 106 mmol/L 98-108 [facility] Emergency Department Summary on 09-23-2024 Emergency Department Summary Normal [facility] Eosinophil percentageOrdered By: Amber Martino on 09-23-2024 Eosinophils/100 WBC (Bld) 1.5 % 0-5 [facility] Erythrocyte distribution wid th ratioOrdered By: Amber Martino on 09-23-2024 Erythrocyte distribution width (RBC) [Ratio] 13.0 % 11.6-14.6 [facility] Erythrocyte distribution wid th standard deviationOrdered By: Amber Martino on 09-23-2024 Erythrocyte distribution width (RBC) [Entitic vol] 42.2 fL 35.1-43.9 [facility] Erythrocyte distribution width (RBC) [Ratio] 42.2 fl 35.1-43.9 [facility] Estimation of creatinine kimberly aranceOrdered By: Amber Martino on 09-23-2024 Estimated Creatinine Clearance Calc 84.46 ml/min 50-250 [facility] GFR/1.73 sq M.predicted du g non-blacks MDRD (S/P/Bld) [Vol rate/Area]Ordered By: Amber Martino on 09-23-2024 Estimated GFR (MDRD) Non-Af Amer 88 >60 [facility] Comment on above: mL/min/1.73m2 CKD-EP I Creatinine Equation (2020) Glomerular filtration rate ( GFR) estimation/1.73 sq m using serum, plasma, or whole bOrdered By: Amber Martino on 09-23-2024 GFR/1.73 sq M.predicted among non-blacks MDRD (S/P/Bld) [Vol rate/Area] 88 mL/min/{1.73_m2} >60 [facility] Comment on above: mL/min/1.73m2 CKD-EP I Creatinine Equation (2020) Hematocrit Auto (Bld) [Volum e fraction]Ordered By: Amber Martino on 09-23-2024 Hematocrit (Bld) [Volume fraction] 35.9 % Low 37-47 [facility] Hemoglobin measurementOrdere d By: Amber Martino on 09-23-2024 Hemoglobin (Bld) [Mass/Vol] 11.9 g/dL Low 12.0-15.0 [facility] Immature granulocytes/100 WB C Auto (Bld)Ordered By: Amber Martino on 09-23-2024 Immature granulocytes/100 WBC (Bld) 0.300 % 0.0-0.9 [facility] Comment on above: IG% - Immature Granu locytes (promyelocytes, myelocytes and metamyelocytes) > 1% indicates that a LEFT SHIFT is Present. Lower GI hemoglobin IA Ql (S tl)Ordered By: Amber Martino on 09-23-2024 Stool Occult Blood (RABIA) Positive Abnormal [facility] Lymphocytes Auto (Unsp spec) [#/Vol]Ordered By: Amber Martino on 09-23-2024 Lymphocytes (Bld) [#/Vol] 0.69 10*3/uL Low 0.83-4.51 [facility] Lymphocytes/100 WBC Auto (Un sp spec)Ordered By: Amber Martino on 09-23-2024 Lymphocytes/100 WBC (Bld) 17.6 % Low 19-41 [facility] MCV (mean corpuscular volume ) determinationOrdered By: Amber Martino on 09-23-2024 MCV (RBC) [Entitic vol] 88.6 fL 81-99 [facility] Mean corpuscular hemoglobin (MCH) determinationOrdered By: Amber Martino on 09-23-2024 MCH (RBC) [Entitic mass] 29.4 pg 27.0-32.0 [facility] Mean corpuscular hemoglobin concentration (MCHC) determinationOrdered By: Amber Martino on 09-23-2024 MCHC (RBC) [Mass/Vol] 33.1 g/dL 32-36 [facility] Mean platelet volume determi nationOrdered By: Amber Martino on 09-23-2024 Platelet mean volume (Bld) [Entitic vol] 12.3 fL High 6.2-12.0 [facility] Monocyte percentageOrdered B y: Amber Martino on 09-23-2024 Monocytes/100 WBC (Bld) 12.7 % High 0-10 [facility] Neutrophil percentageOrdered By: Amber Martnio on 09-23-2024 Neutrophils/100 WBC (Bld) 67.6 % 47-70 [facility] Nucleated red blood cell per centageOrdered By: Amber Martino on 09-23-2024 Nucleated RBC/100 WBC (Bld) [Ratio] 0 % 0-5 [facility] Platelet countOrdered By: Daniel Martino on 09-23-2024 Platelets (Bld) [#/Vol] 169 10*3/uL 150-450 [facility] Potassium (Unsp spec) [Mass/ Vol]Ordered By: Amber Martino on 09-23-2024 Potassium [Moles/Vol] 3.7 mmol/L 3.3-5.1 [facility] Potassium measurement (mass/ volume)Ordered By: Amber Martino on 09-23-2024 Potassium (Unsp spec) [Mass/Vol] 3.7 mmol/L 3.3-5.1 [facility] RBC Auto (Bld) [#/Vol]Ordere d By: Amber Martino on 09-23-2024 RBC (Bld) [#/Vol] 4.05 10*6/uL Low 4.2-5.4 [facility] Serum creatinine measurement (mass/volume)Ordered By: Amber Martino on 09-23-2024 Creatinine [Mass/Vol] 0.70 mg/dL 0.70-1.20 [facility] Serum glucose measurement (m ass/volume)Ordered By: Amber Martino on 09-23-2024 Glucose [Mass/Vol] 125 mg/dL High 70-99 [facility] Serum or plasma calcium zora urement (mass/volume)Ordered By: Amber Martino on 09-23-2024 Calcium [Mass/Vol] 8.5 mg/dL 7.6-11.0 [facility] Serum or plasma urea nitroge n measurement (mass/volume)Ordered By: Amber Martino on 09-23-2024 Urea nitrogen [Mass/Vol] 14 mg/dL 4-19 [facility] Sodium levelOrdered By: Amber Martino on 09-23-2024 Sodium [Moles/Vol] 139 mmol/L 133-145 [facility] Stool Occult Blood iFOBon STOB Positive Normal [facility] Comment on above: Performed By: #### M 100.7900 ####[facility] [address] [place], [address] Stool gastrointestinal hemog lobin detection by immunologic methodOrdered By: Amber Martino on 09-23-2024 Lower GI hemoglobin IA Ql (Stl) Positive Abnormal [facility] White blood cell (WBC) count Ordered By: Amber Martino on 09-23-2024 WBC (Bld) [#/Vol] 3.9 10*3/uL Low 4.4-11.0 [facility] Urine Cultureon 09-22-2024 URC Mixed Gram Positive Organisms [place] Count 11,000-25,000 MIXC Mixed contaminants. Submit a new specimen if indicated. Normal [facility] Comment on above: Performed By: #### M 100.2200 ####[facility] [address] [place], [address] Anion gap in Serum or Plasma Ordered By: Holland Sanches on 09-21-2024 Anion gap [Moles/Vol] 14 mmol/L 5-15 [facility] BUN/creatinine ratioOrdered By: Holland Sanches on 09-21-2024 Urea nitrogen/Creatinine [Mass ratio] 29.0 mg/mg High 10-20 [facility] Basic Metabolic Profile (BMP )on 09-21-2024 BUN/CRE 29.0 RATIO High - [facility] Comment on above: Performed By: #### L 500.2500 ####[facility] [address] [place], [address] Calcium [Mass/Vol] 8.3 mg/dL Normal 7.6-11.0 [facility] Comment on above: Performed By: #### L 500.2500 ####[facility] [address] [place], [address] Chloride [Moles/Vol] 97 mmol/L Low 98-108 [facility] Comment on above: Performed By: #### L 500.2500 ####[facility] [address] [place], [address] CO2 [Moles/Vol] 20.7 mmol/L Low 21.0-32.0 [facility] Comment on above: Performed By: #### L 500.2500 ####[facility] [address] [place], [address] Creatinine [Mass/Vol] 1.24 mg/dL High 0.70-1.20 [facility] Comment on above: Performed By: #### L 500.2500 ####[facility] [address] [place], [address] ECRCL 54.31 ml/min Normal 50-250 [facility] Comment on above: Performed By: #### L 500.2500 ####[facility] [address] [place], [address] GAP 14 Normal 5-15 [facility] Comment on above: Performed By: #### L 500.2500 ####[facility] [address] [place], [address] GFR/1.73 sq M.predicted among non-blacks MDRD (S/P/Bld) [Vol rate/Area] 44 mL/min/{1.73_m2} Low >60 [facility] Comment on above: Result Comment: mL/m in/1.73m2 CKD-EPI Creatinine Equation (2020) Performed By: #### L 500.2500 ####[facility] [address] [place], [address] Glucose [Mass/Vol] 433 mg/dL High 70-99 [facility] Comment on above: Performed By: #### L 500.2500 ####[facility] [address] [place], [address] Potassium [Moles/Vol] 3.8 mmol/L Normal 3.3-5.1 [facility] Comment on above: Performed By: #### L 500.2500 ####[facility] [address] [place], [address] Sodium [Moles/Vol] 132 mmol/L Low 133-145 [facility] Comment on above: Performed By: #### L 500.2500 ####[facility] [address] [place], [address] Urea nitrogen [Mass/Vol] 36 mg/dL High 4-19 [facility] Comment on above: Performed By: #### L 500.2500 ####[facility] [address] [place], [address] Bedside Glucoseon 09-21-2024 FINGERSTICK GLU 297 mg/dL High 74-106 [facility] Comment on above: Result Comment: MERCEDES GEMENT OF PATIENT CARE PER NURSING PROTOCOL Performed By: #### L 501.080 ####[facility] [address] [place], [address] FINGERSTICK GLU 428 mg/dL High 74-106 [facility] Comment on above: Result Comment: MERCEDES GEMENT OF PATIENT CARE PER NURSING PROTOCOL Performed By: #### L 501.080 ####[facility] [address] [place], [address] FINGERSTICK GLU 392 mg/dL High 74-106 [facility] Comment on above: Result Comment: MERCEDES GEMENT OF PATIENT CARE PER NURSING PROTOCOL Performed By: #### L 501.080 ####[facility] [address] [place], [address] CNPNon 09-21-2024 CNPN Normal [facility] Carbon dioxide, total [Moles /volume] in Central venous bloodOrdered By: Holland Sanches on 09-21-2024 CO2 [Moles/Vol] 20.7 mmol/L Low 21.0-32.0 [facility] Chloride assayOrdered By: Michael Sanches on 09-21-2024 Chloride [Moles/Vol] 97 mmol/L Low 98-108 [facility] Emergency Department Summary on 09-21-2024 Emergency Department Summary Normal [facility] Estimation of creatinine kimberly aranceOrdered By: Holland Sanches on 09-21-2024 Estimated Creatinine Clearance Calc 54.31 ml/min 50-250 [facility] GFR/1.73 sq M.predicted du g non-blacks MDRD (S/P/Bld) [Vol rate/Area]Ordered By: Holland Sanches on 09-21-2024 Estimated GFR (MDRD) Non-Af Amer 44 Low >60 [facility] Comment on above: mL/min/1.73m2 CKD-EP I Creatinine Equation (2020) Glomerular filtration rate ( GFR) estimation/1.73 sq m using serum, plasma, or whole bOrdered By: Holland Sanches on 09-21-2024 GFR/1.73 sq M.predicted among non-blacks MDRD (S/P/Bld) [Vol rate/Area] 44 mL/min/{1.73_m2} Low >60 [facility] Comment on above: mL/min/1.73m2 CKD-EP I Creatinine Equation (2020) [facility] deOrdered By: Holland Sanches on 09-21-2024 Bedside Glucose (Misc Panel) 297 mg/dL High 74-106 [facility] Comment on above: MANAGEMENT OF PATIEN T CARE PER NURSING PROTOCOL Glucose [Mass/Vol] 297 mg/dL High 74-106 [facility] Comment on above: MANAGEMENT OF PATIEN T CARE PER NURSING PROTOCOL Potassium (Unsp spec) [Mass/ Vol]Ordered By: Holland Sanches on 09-21-2024 Potassium [Moles/Vol] 3.8 mmol/L 3.3-5.1 [facility] Potassium measurement (mass/ volume)Ordered By: Holland Sanches on 09-21-2024 Potassium (Unsp spec) [Mass/Vol] 3.8 mmol/L 3.3-5.1 [facility] Serum creatinine measurement (mass/volume)Ordered By: Holland Sanches on 09-21-2024 Creatinine [Mass/Vol] 1.24 mg/dL High 0.70-1.20 [facility] Serum glucose measurement (m ass/volume)Ordered By: Holland Sanchse on 09-21-2024 Glucose [Mass/Vol] 433 mg/dL High 70-99 [facility] Serum or plasma calcium zora urement (mass/volume)Ordered By: Holland Sanches on 09-21-2024 Calcium [Mass/Vol] 8.3 mg/dL 7.6-11.0 [facility] Serum or plasma urea nitroge n measurement (mass/volume)Ordered By: Holland Sanches on 09-21-2024 Urea nitrogen [Mass/Vol] 36 mg/dL High 4-19 [facility] Sodium levelOrdered By: Frank Sanches on 03-07-2025 Sodium [Moles/Vol] 132 mmol/L Low 133-145 [facility] Abdomen/Pelvis W IV Cont ONL Yon 09-20-2024 Abdomen/Pelvis W IV Cont ONLY Normal [facility] Absolute lymphocyte countOrd ered By: Lars Dahl on 09-20-2024 Lymphocytes Auto (Unsp spec) [#/Vol] 0.35 10*3/uL Low 0.83-4.51 [facility] Absolute neutrophil countOrd ered By: Lars Dahl on 09-20-2024 Neutrophils (Bld) [#/Vol] 8.5 10*3/uL High 2.0-7.7 [facility] Amorphous sediment detection in urine sediment by light microscopyOrdered By: Lars Dahl on 09-20-2024 Amorphous sediment LM Ql (Urine sed) 1+ URATE [facility] Anion gap in Serum or Plasma Ordered By: Lars Dahl on 09-20-2024 Anion gap [Moles/Vol] 14 mmol/L 5-15 [facility] Automated lymphocyte count a s percentage of total leukocytesOrdered By: Lars Dahl on 09-20-2024 Lymphocytes/100 WBC Auto (Unsp spec) 3.7 % Low 19-41 [facility] BUN/creatinine ratioOrdered By: Lars Dahl on 09-20-2024 Urea nitrogen/Creatinine [Mass ratio] 32.4 mg/mg High 10-20 [facility] Basophil percentageOrdered B y: Lars Dahl on 09-20-2024 Basophils/100 WBC (Bld) 0.2 % 0-1 [facility] Bedside Glucoseon 09-20-2024 FINGERSTICK GLU 128 mg/dL High 74-106 [facility] Comment on above: Result Comment: MERCEDES ABDULENT OF PATIENT CARE PER NURSING PROTOCOL Performed By: #### L 501.080 ####[facility] [address] [place], [place], [id number] Bilirubin Test strip Ql (U)O rdered By: Lars Dahl on 09-20-2024 Bilirubin Ql (U) 1 mg/dL High Negative [facility] Comment on above: COLOR OF URINE MAY A FFECT DIPSTICK RESULTS. Bilirubin, totalOrdered By: Lars Dahl on 09-20-2024 Bilirubin [Mass/Vol] 1.02 mg/dL 0.00-1.30 [facility] CBC W/Diff, Automatedon Absolute Lymph 0.35 X10 3/uL Low 0.83-4.51 [facility] Comment on above: Performed By: #### L 500.4050, L100.0100, L501.2450 ####[facility] [address] [place], [address] Absolute Neut 8.5 X10 3/uL High 2.0-7.7 [facility] Comment on above: Performed By: #### L 500.4050, L100.0100, L501.2450 ####[facility] [address] [place], [address] Basophils/100 WBC (Bld) 0.2 % Normal 0-1 [facility] Comment on above: Performed By: #### L 500.4050, L100.0100, L501.2450 ####[facility] [address] [place], [address] Eosinophils/100 WBC (Bld) 1.2 % Normal 0-5 [facility] Comment on above: Performed By: #### L 500.4050, L100.0100, L501.2450 ####[facility] [address] [place], [address] Erythrocyte distribution width (RBC) [Ratio] 12.8 % Normal 11.6-14.6 [facility] Comment on above: Performed By: #### L 500.4050, L100.0100, L501.2450 ####[facility] [address] [place], [address] Hematocrit (Bld) [Volume fraction] 41.4 % Normal 37-47 [facility] Comment on above: Performed By: #### L 500.4050, L100.0100, L501.2450 ####[facility] [address] [place], [address] Hemoglobin (Bld) [Mass/Vol] 13.8 g/dL Normal 12.0-15.0 [facility] Comment on above: Performed By: #### L 500.4050, L100.0100, L501.2450 ####[facility] [address] [place], [address] IG% 0.200 Normal 0.0-0.9 [facility] Comment on above: Result Comment: IG% - Immature Granulocytes (promyelocytes, myelocytes andmetamyelocytes) > 1% indicates that a LEFT SHIFT is Present. Performed By: #### L 500.4050, L100.0100, L501.2450 ####[facility] [address] [place], [address] Lymphocytes/100 WBC (Bld) 3.7 % Low 19-41 [facility] Comment on above: Performed By: #### L 500.4050, L100.0100, L501.2450 ####[facility] [address] [place], [address] MCH (RBC) [Entitic mass] 29.8 pg Normal 27.0-32.0 [facility] Comment on above: Performed By: #### L 500.4050, L100.0100, L501.2450 ####[facility] [address] [place], [address] MCHC (RBC) [Mass/Vol] 33.3 g/dL Normal 32-36 [facility] Comment on above: Performed By: #### L 500.4050, L100.0100, L501.2450 ####[facility] [address] [place], [address] MCV (RBC) [Entitic vol] 89.4 fL Normal 81-99 [facility] Comment on above: Performed By: #### L 500.4050, L100.0100, L501.2450 ####[facility] [address] [place], [address] Monocytes/100 WBC (Bld) 4.5 % Normal 0-10 [facility] Comment on above: Performed By: #### L 500.4050, L100.0100, L501.2450 ####[facility] [address] [place], [address] Neutrophils/100 WBC (Bld) 90.2 % High 47-70 [facility] Comment on above: Performed By: #### L 500.4050, L100.0100, L501.2450 ####[facility] [address] [place], [address] Nucleated RBC (Bld) [#/Vol] 0 10*3/uL Normal 0-5 [facility] Comment on above: Performed By: #### L 500.4050, L100.0100, L501.2450 ####[facility] [address] [place], [address] Platelet mean volume (Bld) [Entitic vol] 12.6 fL High 6.2-12.0 [facility] Comment on above: Performed By: #### L 500.4050, L100.0100, L501.2450 ####[facility] [address] [place], [address] Platelets (Bld) [#/Vol] 188 10*3/uL Normal 150-450 [facility] Comment on above: Performed By: #### L 500.4050, L100.0100, L501.2450 ####[facility] [address] [place], [address] RBC (Bld) [#/Vol] 4.63 10*6/uL Normal 4.2-5.4 [facility] Comment on above: Performed By: #### L 500.4050, L100.0100, L501.2450 ####[facility] [address] [place], [address] RDW SD 41.9 fl Normal 35.1-43.9 [facility] Comment on above: Performed By: #### L 500.4050, L100.0100, L501.2450 ####[facility] [address] [place], [address] WBC (Bld) [#/Vol] 9.4 10*3/uL Normal 4.4-11.0 [facility] Comment on above: Performed By: #### L 500.4050, L100.0100, L501.2450 ####[facility] [address] [place], [address] Carbon dioxide, total [Moles /volume] in Central venous bloodOrdered By: Lars Dahl on 09-20-2024 CO2 [Moles/Vol] 22.7 mmol/L 21.0-32.0 [facility] Chloride assayOrdered By: Lazaro Dahl on 09-20-2024 Chloride [Moles/Vol] 101 mmol/L 98-108 [facility] Comprehensive Metabolic Prof ilon 09-20-2024 Albumin [Mass/Vol] 3.9 g/dL Normal 3.4-4.8 [facility] Comment on above: Performed By: #### L 500.4050, L100.0100, L501.2450 ####[facility] [address] [place], [address] Albumin/Globulin [Mass ratio] 1.3 {ratio} Normal 0.9-2.4 [facility] Comment on above: Performed By: #### L 500.4050, L100.0100, L501.2450 ####[facility] [address] [place], [address] ALK PHOS 78 U/L Normal 35-104 [facility] Comment on above: Performed By: #### L 500.4050, L100.0100, L501.2450 ####[facility] [address] [place], [address] ALT [Catalytic activity/Vol] 17 U/L Normal <=34 [facility] Comment on above: Performed By: #### L 500.4050, L100.0100, L501.2450 ####[facility] [address] [place], [address] AST [Catalytic activity/Vol] 22 U/L Normal <=31 [facility] Comment on above: Performed By: #### L 500.4050, L100.0100, L501.2450 ####[facility] [address] [place], [address] Bilirubin [Mass/Vol] 1.02 mg/dL Normal 0.00-1.30 [facility] Comment on above: Performed By: #### L 500.4050, L100.0100, L501.2450 ####[facility] [address] [place], [address] BUN/CRE 32.4 RATIO High 10-20 [facility] Comment on above: Performed By: #### L 500.4050, L100.0100, L501.2450 ####[facility] [address] [place], [address] Calcium [Mass/Vol] 9.1 mg/dL Normal 7.6-11.0 [facility] Comment on above: Performed By: #### L 500.4050, L100.0100, L501.2450 ####[facility] [address] [place], [address] Chloride [Moles/Vol] 101 mmol/L Normal 98-108 [facility] Comment on above: Performed By: #### L 500.4050, L100.0100, L501.2450 ####[facility] [address] [place], [address] CO2 [Moles/Vol] 22.7 mmol/L Normal 21.0-32.0 [facility] Comment on above: Performed By: #### L 500.4050, L100.0100, L501.2450 ####[facility] [address] [place], [address] Creatinine [Mass/Vol] 0.86 mg/dL Normal 0.70-1.20 [facility] Comment on above: Performed By: #### L 500.4050, L100.0100, L501.2450 ####[facility] [address] [place], [address] GAP 14 Normal 5-15 [facility] Comment on above: Performed By: #### L 500.4050, L100.0100, L501.2450 ####[facility] [address] [place], [address] GFR/1.73 sq M.predicted among non-blacks MDRD (S/P/Bld) [Vol rate/Area] 69 mL/min/{1.73_m2} Normal >60 [facility] Comment on above: Result Comment: mL/m in/1.73m2 CKD-EPI Creatinine Equation (2020) Performed By: #### L 500.4050, L100.0100, L501.2450 ####[facility] [address] [place], [address] Globulin (S) [Mass/Vol] 2.9 g/dL Normal 2.2-4.2 [facility] Comment on above: Performed By: #### L 500.4050, L100.0100, L501.2450 ####[facility] [address] [place], [address] Glucose [Mass/Vol] 153 mg/dL High 70-99 [facility] Comment on above: Performed By: #### L 500.4050, L100.0100, L501.2450 ####[facility] [address] [place], [address] Potassium [Moles/Vol] 4.1 mmol/L Normal 3.3-5.1 [facility] Comment on above: Performed By: #### L 500.4050, L100.0100, L501.2450 ####[facility] [address] [place], [address] Sodium [Moles/Vol] 138 mmol/L Normal 133-145 [facility] Comment on above: Performed By: #### L 500.4050, L100.0100, L501.2450 ####[facility] [address] [place], [address] T PROT 6.7 g/dL Normal 5.9-8.4 [facility] Comment on above: Performed By: #### L 500.4050, L100.0100, L501.2450 ####[facility] [address] [place], [address] Urea nitrogen [Mass/Vol] 28 mg/dL High 4-19 [facility] Comment on above: Performed By: #### L 500.4050, L100.0100, L501.2450 ####[facility] [address] [place], [address] Emergency Department Summary on 09-20-2024 Emergency Department Summary Normal [facility] Eosinophil percentageOrdered By: Lars Dahl on 09-20-2024 Eosinophils/100 WBC (Bld) 1.2 % 0-5 [facility] Epithelial cells.squamous LM Ql (Urine sed)Ordered By: Lars Dahl on 09-20-2024 Epithelial cells.squamous LM.HPF (Urine sed) [#/Area] 0 /[HPF] 5-10 [facility] Erythrocyte distribution wid th ratioOrdered By: Lars Dahl on 09-20-2024 Erythrocyte distribution width (RBC) [Ratio] 12.8 % 11.6-14.6 [facility] Erythrocyte distribution wid th standard deviationOrdered By: Lars Dahl on 09-20-2024 Erythrocyte distribution width (RBC) [Entitic vol] 41.9 fL 35.1-43.9 [facility] Erythrocyte distribution width (RBC) [Ratio] 41.9 fl 35.1-43.9 [facility] GFR/1.73 sq M.predicted du g non-blacks MDRD (S/P/Bld) [Vol rate/Area]Ordered By: Lars Dahl on 09-20-2024 Estimated GFR (MDRD) Non-Af Amer 69 >60 [facility] Comment on above: mL/min/1.73m2 CKD-EP I Creatinine Equation (2020) Glomerular filtration rate ( GFR) estimation/1.73 sq m using serum, plasma, or whole bOrdered By: Lars Dahl on 09-20-2024 GFR/1.73 sq M.predicted among non-blacks MDRD (S/P/Bld) [Vol rate/Area] 69 mL/min/{1.73_m2} >60 [facility] Comment on above: mL/min/1.73m2 CKD-EP I Creatinine Equation (2020) Glucose Ql (U)Ordered By: Lazaro Dahl on 09-20-2024 Urine Glucose (UA) Normal mg/dl Normal [facility] deOrdered By: Lars Dahl on 09-20-2024 Bedside Glucose (Misc Panel) 128 mg/dL High 74-106 [facility] Comment on above: MANAGEMENT OF PATIEN T CARE PER NURSING PROTOCOL Glucose [Mass/Vol] 128 mg/dL High 74-106 [facility] Comment on above: MANAGEMENT OF PATIEN T CARE PER NURSING PROTOCOL Hematocrit Auto (Bld) [Volum e fraction]Ordered By: Lars Dahl on 09-20-2024 Hematocrit (Bld) [Volume fraction] 41.4 % 37-47 [facility] Hemoglobin measurementOrdere d By: Lars Dahl on 09-20-2024 Hemoglobin (Bld) [Mass/Vol] 13.8 g/dL 12.0-15.0 [facility] Immature granulocytes/100 WB C Auto (Bld)Ordered By: Lars Dahl on 09-20-2024 Immature granulocytes/100 WBC (Bld) 0.200 % 0.0-0.9 [facility] Comment on above: IG% - Immature Granu locytes (promyelocytes, myelocytes and metamyelocytes) > 1% indicates that a LEFT SHIFT is Present. Influenza virus A and B and SARS-CoV-2 (COVID-19) and Respiratory syncytial virus RNAOrdered By: Lars Dahl on 09-20-2024 SARS-CoV-2 (COVID-19) RNA RAYMOND+probe Ql (Unsp spec) [facility] SARS-CoV-2 (COVID-19) RNA RAYMOND+probe Ql (Unsp spec) [facility] Ketones Test strip Ql (U)Ord ered By: Lars Dahl on 09-20-2024 Ketones Ql (U) 5 mg/dl High Negative [facility] Laboratory - Chemistry and C hemistry - challengeOrdered By: Lars Dahl on 09-20-2024 AST [Catalytic activity/Vol] 22 U/L <32 [facility] Lipaseon 09-20-2024 Lipase [Catalytic activity/Vol] 12 U/L Low 13-75 [facility] Comment on above: Result Comment: Plegm quintana note:LIPASE revised reference range effective 22.New Lipase methodology. Expected to produce lower valuesthan the previous assay method.NEW Reference Range: 13 - 75 U/L Performed By: #### L 500.4050, L100.0100, L501.2450 ####[facility] [address] [place], [address] Lipase measurementOrdered By : Lars Dahl on 09-20-2024 Lipase [Catalytic activity/Vol] 12 U/L Low 13-75 [facility] Comment on above: Please note:LIPASE r evised reference range effective 22. New Lipase methodology. Expected to produce lower values than the previous assay method. NEW Reference Range: 13 - 75 U/L Lymphocytes Auto (Unsp spec) [#/Vol]Ordered By: Lars Dahl on 09-20-2024 Lymphocytes (Bld) [#/Vol] 0.35 10*3/uL Low 0.83-4.51 [facility] Lymphocytes/100 WBC Auto (Un sp spec)Ordered By: Lars Dahl on 09-20-2024 Lymphocytes/100 WBC (Bld) 3.7 % Low 19-41 [facility] M100.678on 09-20-2024 M100.678 Pending SARS-CoV-2 (COVID 19) Negative INFLUENZA A Negative INFLUENZA B Negative RSV PCR Negative Normal [facility] Comment on above: Performed By: #### M 100.678 ####[facility] [address] [place], [place], [id number] MCV (mean corpuscular volume ) determinationOrdered By: Lars Dahl on 09-20-2024 MCV (RBC) [Entitic vol] 89.4 fL 81-99 [facility] Mean corpuscular hemoglobin (MCH) determinationOrdered By: Lars Dahl on 09-20-2024 MCH (RBC) [Entitic mass] 29.8 pg 27.0-32.0 [facility] Mean corpuscular hemoglobin concentration (MCHC) determinationOrdered By: Lars Dahl on 09-20-2024 MCHC (RBC) [Mass/Vol] 33.3 g/dL 32-36 [facility] Mean platelet volume determi nationOrdered By: Lars Dahl on 09-20-2024 Platelet mean volume (Bld) [Entitic vol] 12.6 fL High 6.2-12.0 [facility] Microscopic analysis of urin e for red blood cells (RBC)Ordered By: Lars Dahl on 09-20-2024 Microscopic analysis of urine for red blood cells (RBC) 0 SEEN /hpf 0-5 [facility] Urine RBC 0 SEEN /hpf 0-5 [facility] Monocyte percentageOrdered B y: Lars Dahl on 09-20-2024 Monocytes/100 WBC (Bld) 4.5 % 0-10 [facility] Mucus LM Ql (Urine sed)Order ed By: Lars Dahl on 09-20-2024 Mucus Ql (Urine sed) 0 SEEN /hpf [facility] Neutrophil percentageOrdered By: Lars Dahl on 09-20-2024 Neutrophils/100 WBC (Bld) 90.2 % High 47-70 [facility] Nitrite Test strip Ql (U)Ord ered By: Lars Dahl on 09-20-2024 Nitrite Ql (U) Negative Negative [facility] Nucleated red blood cell per centageOrdered By: Lars Dahl on 09-20-2024 Nucleated RBC/100 WBC (Bld) [Ratio] 0 % 0-5 [facility] Platelet countOrdered By: Lazaro Dahl on 09-20-2024 Platelets (Bld) [#/Vol] 188 10*3/uL 150-450 [facility] Potassium (Unsp spec) [Mass/ Vol]Ordered By: Lars Dahl on 09-20-2024 Potassium [Moles/Vol] 4.1 mmol/L 3.3-5.1 [facility] Potassium measurement (mass/ volume)Ordered By: Lars Dahl on 09-20-2024 Potassium (Unsp spec) [Mass/Vol] 4.1 mmol/L 3.3-5.1 [facility] Protein Test strip Ql (U)Ord ered By: Lars Dahl on 09-20-2024 Protein Ql (U) 30 mg/dl High Negative [facility] RBC Auto (Bld) [#/Vol]Ordere d By: Lars Dahl on 09-20-2024 RBC (Bld) [#/Vol] 4.63 10*6/uL 4.2-5.4 [facility] Serum creatinine measurement (mass/volume)Ordered By: Lars Dahl on 09-20-2024 Creatinine [Mass/Vol] 0.86 mg/dL 0.70-1.20 [facility] Serum globulin measurementOr dered By: Lars Dahl on 09-20-2024 Globulin (S) [Mass/Vol] 2.9 g/dL 2.2-4.2 [facility] Serum glucose measurement (m ass/volume)Ordered By: Lars Dahl on 09-20-2024 Glucose [Mass/Vol] 153 mg/dL High 70-99 [facility] Serum or plasma alanine ramírez otransferase (ALT) measurementOrdered By: Lars Dahl on 09-20-2024 ALT [Catalytic activity/Vol] 17 U/L <35 [facility] Serum or plasma albumin zora urement (mass/volume)Ordered By: Lars Dahl on 09-20-2024 Albumin [Mass/Vol] 3.9 g/dL 3.4-4.8 [facility] Serum or plasma albumin/glob ulin mass ratioOrdered By: Lars Dahl on 09-20-2024 Albumin/Globulin [Mass ratio] 1.3 {ratio} 0.9-2.4 [facility] Serum or plasma alkaline dhiraj sphatase measurementOrdered By: Lars Dahl on 09-20-2024 ALP [Catalytic activity/Vol] 78 U/L 35-104 [facility] Serum or plasma calcium zora urement (mass/volume)Ordered By: Lars Dahl on 09-20-2024 Calcium [Mass/Vol] 9.1 mg/dL 7.6-11.0 [facility] Serum or plasma urea nitroge n measurement (mass/volume)Ordered By: Lars Dahl on 09-20-2024 Urea nitrogen [Mass/Vol] 28 mg/dL High 4-19 [facility] Sodium levelOrdered By: Jorge Dahl on 09-20-2024 Sodium [Moles/Vol] 138 mmol/L 133-145 [facility] Squamous epithelial cells de tection in urine sediment by light microscopyOrdered By: Lars Dahl on 09-20-2024 Epithelial cells.squamous LM Ql (Urine sed) 0-5 SEEN /hpf 5-10 [facility] Total proteinOrdered By: Davion Dahl on 09-20-2024 Protein [Mass/Vol] 6.7 g/dL 5.9-8.4 [facility] Urinalysis, Completeon 09-20 AMORPHOUS 1+ URATE Normal [facility] Comment on above: Order Comment: CLEAN CATCH Performed By: #### L 400.0001 ####[facility] [address] [place], [address] EPI,SQUAMOUS 0-5 SEEN Normal 5-10 [facility] Comment on above: Order Comment: CLEAN CATCH Performed By: #### L 400.0001 ####[facility] [address] [place], [address] RBC 0 SEEN Normal 0-5 [facility] Comment on above: Order Comment: CLEAN CATCH Performed By: #### L 400.0001 ####[facility] [address] [place], [address] WBC 25-50 SEEN Normal 0-5 [facility] Comment on above: Order Comment: CLEAN CATCH Performed By: #### L 400.0001 ####[facility] [address] [place], [address] BACTERIA 0 SEEN Normal None Seen [facility] Comment on above: Order Comment: CLEAN CATCH Performed By: #### L 400.0001 ####[facility] [address] [place], [address] Mucus Ql (Urine sed) 0 SEEN Normal [facility] Comment on above: Order Comment: CLEAN CATCH Performed By: #### L 400.0001 ####[facility] [address] [place], [address] Urine blood detectionOrdered By: Lars Dahl on 09-20-2024 Urine Occult Blood Negative Negative [facility] Urine clarityOrdered By: Davion Dahl on 09-20-2024 Clarity (U) Sl. Cloudy Clear [facility] Urine color determinationOrd ered By: Lars Dahl on 09-20-2024 Color (U) Yellow Yellow [facility] Urine cultureOrdered By: Davion Dahl on 09-20-2024 Bacteria identified Cx Nom (U) Positive Abnormal [facility] Urine glucose detectionOrder ed By: Lars Dahl on 09-20-2024 Glucose Ql (U) Normal mg/dl Normal [facility] Urine leukocyte esterase det ection by dipstickOrdered By: Lars Dahl on 09-20-2024 Leukocyte esterase Test strip Ql (U) 500 /ul High Negative [facility] Urine pHOrdered By: Lars laura on 09-20-2024 pH (U) 6.0 [pH] 5.0 - 8.0 [facility] Urine sediment bacteria coun t by microscopy (number/high power field)Ordered By: Lars aDhl on 09-20-2024 Bacteria LM.HPF (Urine sed) [#/Area] 0 /[HPF] None Seen [facility] Urine specific gravity measu rementOrdered By: Lars Dahl on 09-20-2024 Specific gravity (U) [Rel density] 1.025 1.002-1.030 [facility] Urine urobilinogen measureme ntOrdered By: Lars Dahl on 09-20-2024 Urobilinogen Ql (U) Normal mg/dl Normal [facility] Urobilinogen Ql (U)Ordered B y: Lars Dahl on 09-20-2024 Urine Urobilinogen Normal mg/dl Normal [facility] White blood cell (WBC) count Ordered By: Lars Dahl on 09-20-2024 WBC (Bld) [#/Vol] 9.4 10*3/uL 4.4-11.0 [facility] White blood cell countOrdere d By: Lars Dahl on 09-20-2024 Urine WBC 25-50 SEEN /hpf 0-5 [facility] White blood cell count 25-50 SEEN /hpf 0-5 [facility] CNPNon 09-10-2024 CNPN Normal [facility] CNPNon 09-06-2024 CNPN Normal [facility] CNPNon 09-04-2024 CNPN Normal [facility] ALBUMIN/CREATININE RATIO, UR INEon 08-20-2024 Albumin DL <= 20 mg/L (U) [Mass/Vol] mg/dL Normal [facility] Comment on above: Order Comment: Speci men Type: URINE SPECIMENOrdering Facility: [facility] Address: [address] [place] [address] Performed By: #### U ACR ####[facility] LABCLIA [id number] [address] [address] [place] Albumin/Creatinine (U) [Mass ratio] Normal [facility] Comment on above: Order Comment: Speci men Type: URINE SPECIMENOrdering Facility: [facility] Address: [address] [place] [address] Result Comment: Not calculatedAdult Male and Female Nephrotic Criteria:<30 mg/g is considered normal to mildly svkwuouut33-841 mg/g is considered moderately increased>300 mg/g is considered severely increasedKDIGO. (2013). KDIGO 2012 Clinical Practice Guideline for the Evaluation and Management of Chronic Kidney Disease. Official Journal of the International Society of Nephrology, 3(1), 1-150. Performed By: #### U ACR ####[facility] LABCLIA [id number] [place] [address] [place] Creatinine (U) [Mass/Vol] 24.5 mg/dL Normal 20.0-300.0 [facility] Comment on above: Order Comment: Speci men Type: URINE SPECIMENOrdering Facility: [facility] Address: [address] [place] [address] Performed By: #### U ACR ####[facility] LABIA [id number] [place] [address] [place] Comprehensive metabolic 2000 panelon 08-20-2024 Albumin [Mass/Vol] 4.2 g/dL Normal 3.9-4.9 [facility] Comment on above: Order Comment: Speci men Type: BLOOD SPECIMENOrdering Facility: [facility] Address: [address] [place] [address] Performed By: #### 2 4323-8 ####[facility] [id number] [place] [address] [place] ALP [Catalytic activity/Vol] 83 U/L Normal 34-123 [facility] Comment on above: Order Comment: Speci men Type: BLOOD SPECIMENOrdering Facility: [facility] Address: [address] [place] [address] Performed By: #### 2 4323-8 ####[facility] [id number] [place] [address] [place] ALT [Catalytic activity/Vol] 15 U/L Normal 7-38 [facility] Comment on above: Order Comment: Speci men Type: BLOOD SPECIMENOrdering Facility: [facility] Address: [address] [place] [address] Performed By: #### 2 4323-8 ####[facility] [id number] [place] [address] [place] Anion gap [Moles/Vol] 9 mmol/L Normal 8-15 [facility] Comment on above: Order Comment: Speci men Type: BLOOD SPECIMENOrdering Facility: [facility] Address: [address] [place] [address] Performed By: #### 2 4323-8 ####[facility] [id number] [place] [address] [place] AST [Catalytic activity/Vol] 18 U/L Normal 13-35 [facility] Comment on above: Order Comment: Speci men Type: BLOOD SPECIMENOrdering Facility: [facility] Address: [address] [place] [address] Performed By: #### 2 4323-8 ####[facility] [id number] [place] [address] [place] Bilirubin [Mass/Vol] 1.0 mg/dL Normal 0.2-1.3 [facility] Comment on above: Order Comment: Speci men Type: BLOOD SPECIMENOrdering Facility: [facility] Address: [address] [place] [address] Performed By: #### 2 4323-8 ####[facility]CL[facility] [id number] [place] [address] [place] Calcium [Mass/Vol] 9.8 mg/dL Normal 8.5-10.2 [facility] Comment on above: Order Comment: Speci men Type: BLOOD SPECIMENOrdering Facility: [facility] Address: [address] [place] [address] Performed By: #### 2 4323-8 ####[facility] [id number] [place] [address] [place] Chloride [Moles/Vol] 103 mmol/L Normal 98-107 [facility] Comment on above: Order Comment: Speci men Type: BLOOD SPECIMENOrdering Facility: [facility] Address: [address] [place] [address] Performed By: #### 2 4323-8 ####[facility] [id number] [place] [address] [place] CO2 [Moles/Vol] 27 mmol/L Normal 22-30 [facility] Comment on above: Order Comment: Speci men Type: BLOOD SPECIMENOrdering Facility: [facility] Address: [address] [place] [address] Performed By: #### 2 4323-8 ####[facility] [id number] [place] [address] [place] Creatinine [Mass/Vol] 0.71 mg/dL Normal 0.58-0.96 [facility] Comment on above: Order Comment: Speci men Type: BLOOD SPECIMENOrdering Facility: [facility] Address: [address] [place] [address] Performed By: #### 2 4323-8 ####[facility] [id number] [address] Creatinine and Glomerular filtration rate.predicted panel (S/P/Bld) 87 mL/min/1.73m??? Normal >=60 [facility] Comment on above: Order Comment: Speci men Type: BLOOD SPECIMENOrdering Facility: [facility] Address: [address] [place] [address] Result Comment: Judith mated Glomerular Filtration Rate (eGFR) is calculated using the 2020 CKD-EPI creatinine equation. This equation utilizes serum creatinine, sex, and age as parameters. The creatinine assay has traceable calibration to isotope dilution-mass spectrometry. Refer to KDIGO guidelines for clinical interpretation. In patients with unstable renal function, e.g. those with acute kidney injury, the eGFR may not accurately reflect actual GFR. Performed By: #### 2 4323-8 ####[facility]WNCLIGm [id number] [place] [address] [place] Glucose [Mass/Vol] 149 mg/dL High 74-99 [facility] Comment on above: Order Comment: Ruma deluna Type: BLOOD SPECIMENOrdering Facility: [facility] Address: [address] [place] [address] Result Comment: The [place] Diabetes Association (ADA) provides guidance for cutoff values for fasting glucose and random glucose. The ADA defines fasting as no caloric intake for at least 8 hours. Fasting plasma glucose results between 100 to 125 mg/dL indicate increased risk for diabetes (prediabetes).Fasting plasma glucose results greater than or equal to 126 mg/dL meet the criteria for diagnosis of diabetes. In the absence of unequivocal hyperglycemia, results should be confirmed by repeat testing. In a patient with classic symptoms of hyperglycemia or hyperglycemic crisis, random plasma glucose results greater than or equal to 200 mg/dL meet the criteria for diagnosis of diabetes.Reference: Standards of Medical Care in Diabetes 2016, [place] Diabetes Association. Diabetes Care. 2016.39(Suppl 1). Performed By: #### 2 4323-8 ####[facility]UTENCLIA [id number] [place] [address] [place] Potassium [Moles/Vol] 4.1 mmol/L Normal 3.7-5.1 [facility] Comment on above: Order Comment: Ruma deluna Type: BLOOD SPECIMENOrdering Facility: [facility] Address: [address] [id number] Performed By: #### 2 4323-8 ####[facility]UT[facility]CL[facility] [id number] [place] [address] [place] Protein [Mass/Vol] 7.1 g/dL Normal 6.3-8.0 [facility] Comment on above: Order Comment: Speci men Type: BLOOD SPECIMENOrdering Facility: [facility] Address: [address] [place] [address] Performed By: #### 2 4323-8 ####[facility] [id number] [place] [address] [place] Sodium [Moles/Vol] 139 mmol/L Normal 136-144 [facility] Comment on above: Order Comment: Speci men Type: BLOOD SPECIMENOrdering Facility: [facility] Address: [address] [place] [address] Performed By: #### 2 4323-8 ####[facility] [id number] [place] [address] [place] Urea nitrogen [Mass/Vol] 22 mg/dL High 7-21 [facility] Comment on above: Order Comment: Speci men Type: BLOOD SPECIMENOrdering Facility: [facility] Address: [address] [place] [address] Performed By: #### 2 4323-8 ####[facility] [id number] [place] [address] [place] HbA1c (Bld)on 08-20-2024 Average glucose Estimated from glycated hemoglobin (Bld) [Mass/Vol] 157 mg/dL Normal [facility] Comment on above: Order Comment: Speci men Type: BLOOD SPECIMENOrdering Facility: [facility] Address: [address] [place] [address] Result Comment: eAG: (Estimated average glucose) is a calculated value from HgbA1c and is auto claim representative of the average blood glucose level in the last 2-3 month period. Performed By: #### 5 5454-3 ####[facility] LABCLIA [id number] [place] [address] [place] HbA1c (Bld) [Mass fraction] 7.1 % High 4.3-5.6 [facility] Comment on above: Order Comment: Speci men Type: BLOOD SPECIMENOrdering Facility: [facility] Address: [address] [place] [address] Result Comment: Nydia [place] Diabetes Association guidelines indicate that patients with HgbA1c in the range 5.7-6.4% are at increased risk for development of diabetes, and intervention by lifestyle modification may be beneficial. HgbA1c greater or equal to 6.5% is considered diagnostic of diabetes. Performed By: #### 5 5454-3 ####[facility] LABCLIA [id number] [place] [address] [place] LIPID PANEL, NONFASTINGon Cholesterol [Mass/Vol] 197 mg/dL Normal <200 [facility] Comment on above: Order Comment: Marilui men Type: BLOOD SPECIMENOrdering Facility: [facility] Address: [address] [place] [address] Result Comment: <200 mg/dL, Desirable 200-239 mg/dL, Borderline high>239 mg/dL, High Performed By: #### L IPNF ####[facility] LABCLIA [id number] [place] [address] [place] HDL CHOLESTEROL, NF 59 mg/dL Normal >39 [facility] Comment on above: Order Comment: Speci men Type: BLOOD SPECIMENOrdering Facility: [facility] Address: [address] [place] [address] Result Comment: 40-5 9 mg/dL, Acceptable>59 mg/dL, High: Negative risk factor for coronary heart disease<40 mg/dL, Low: Positive risk factor for coronary heart disease Performed By: #### L IPNF ####[facility] LABCLIA [id number] [place] [address] [place] LDL CHOLESTEROL, NF 120 mg/dL High <100 [facility] Comment on above: Order Comment: Speci men Type: BLOOD SPECIMENOrdering Facility: [facility] Address: [address] [place], [place] [address] Result Comment: <100 mg/dL, Optimal 100-129 mg/dL, Near optimal/above optimal 130-159 mg/dL, Borderline high 160-189 mg/dL, High>189 mg/dL, Very highSecondary prevention optimal LDL Cholesterol levels are recommended to be < 70 mg/dL Performed By: #### L IPNF ####[facility] [facility]CLIA [id number] [address] [place] LDL/HDL RATIO, NF 2.03 mg/dL Normal <2.54 [facility] Comment on above: Order Comment: Speci men Type: BLOOD SPECIMENOrdering Facility: [facility] Address: [address] [place] [address] Result Comment: Sophia reyesce:1. National Cholesterol Education Program ATP III Guideline At-A-Glance Quick Desk Reference: National Heart, Lung, and Blood [place]comb. National Institutes of Health. 2001: NIH Publication No. 01-3305.2. An International Atherosclerosis Society position paper: global recommendations for the management of dyslipidemia: executive summary, Atherosclerosis. 2014: 232(2):410-413. Performed By: #### L IPNF ####[facility] LABIA [id number] [address] [place] NON HDL CHOL, NF 138 mg/dL High <130 [facility] Comment on above: Order Comment: Marilui men Type: BLOOD SPECIMENOrdering Facility: [facility] Address: [address] [place] [address] Result Comment: <130 mg/dL, Optimal 130-159 mg/dL, Near optimal/above optimal 160-189 mg/dL, Borderline high 190-219 mg/dL, High>219 mg/dL, Very highSecondary prevention optimal non HDL Cholesterol levels are recommended to be <100 mg/dL Performed By: #### L IPNF ####[facility] LABCLIA [id number] [address] [place] T CHOL/HDL RATIO NF 3.34 mg/dL Normal <5.10 [facility] Comment on above: Order Comment: Speci men Type: BLOOD SPECIMENOrdering Facility: [facility] Address: [address] [place] [address] Performed By: #### L IPNF ####[facility] LABCLIA [id number] [place] [address] [place] TRIGLYCERIDES, NF 92 mg/dL Normal <150 [facility] Comment on above: Order Comment: Speci men Type: BLOOD SPECIMENOrdering Facility: [facility] Address: [address] [place] [address] Result Comment: <150 mg/dL, Normal 150-199 mg/dL, Borderline high 200-499 mg/dL, High>499 mg/dL, Very high Performed By: #### L IPNF ####[facility] LABCLIA [id number] [place] [address] [place] VLDL CHOLESTEROL, NF 18 mg/dL Normal <30 [facility] Comment on above: Order Comment: Speci men Type: BLOOD SPECIMENOrdering Facility: [facility] Address: [address] [place] [address] Performed By: #### L IPNF ####[facility] LABCLIA [id number] [place] [address] [place] CNPTOUTREACHon 08-17-2024 CNPTOUTREACH Normal [facility] CNPNon 08-08-2024 CNPN Normal [facility] CNPNon 08-01-2024 CNPN Normal [facility] 12 Lead EKGon 07-28-2024 12 Lead EKG Normal [facility] Absolute neutrophil countOrd ered By: Amber Martino on 07-28-2024 Neutrophils (Bld) [#/Vol] 5.1 10*3/uL 2.0-7.7 [facility] Basic Metabolic Profile (BMP )on 07-28-2024 BUN/CRE 18.1 RATIO Normal 10-20 [facility] Comment on above: Order Comment: 'TROP ' Serial specimen #1, #2 or #3: 1 Performed By: #### L 501.4020, L100.0100, L500.2500 ####[facility] [address] [place], [address] CA,Total 9.3 mg/dL Normal 8.5-10.1 [facility] Comment on above: Order Comment: 'TROP ' Serial specimen #1, #2 or #3: 1 Performed By: #### L 501.4020, L100.0100, L500.2500 ####[facility] [address] [place], [address] Chloride [Moles/Vol] 103 mmol/L Normal 98-107 [facility] Comment on above: Order Comment: 'TROP ' Serial specimen #1, #2 or #3: 1 Performed By: #### L 501.4020, L100.0100, L500.2500 ####[facility] [address] [place], [address] CO2 [Moles/Vol] 25.0 mmol/L Normal 21.0-32.0 [facility] Comment on above: Order Comment: 'TROP ' Serial specimen #1, #2 or #3: 1 Performed By: #### L 501.4020, L100.0100, L500.2500 ####[facility] [address] [place], [address] Creatinine [Mass/Vol] 1.05 mg/dL High 0.55-1.02 [facility] Comment on above: Order Comment: 'TROP ' Serial specimen #1, #2 or #3: 1 Result Comment: The validity of the calculated GFR GFRAA in patients over70 years has not been determined. Clinical correlation isessential. Performed By: #### L 501.4020, L100.0100, L500.2500 ####[facility] [address] [place], [address] ECRCL 66.56 ml/min Normal [facility] Comment on above: Order Comment: 'TROP ' Serial specimen #1, #2 or #3: 1 Performed By: #### L 501.4020, L100.0100, L500.2500 ####[facility] [address] [place], [address] EST GFR - AA 65 mL/min Normal >60 [facility] Comment on above: Order Comment: 'TROP ' Serial specimen #1, #2 or #3: 1 Result Comment: Afri can Rw[place]an GFR Calc Performed By: #### L 501.4020, L100.0100, L500.2500 ####[facility] [address] [place], [address] GAP 6 Normal 5-15 [facility] Comment on above: Order Comment: 'TROP ' Serial specimen #1, #2 or #3: 1 Performed By: #### L 501.4020, L100.0100, L500.2500 ####[facility] [address] [place], [address] GFR/1.73 sq M.predicted among non-blacks MDRD (S/P/Bld) [Vol rate/Area] 54 mL/min/{1.73_m2} Low >60 [facility] Comment on above: Order Comment: 'TROP ' Serial specimen #1, #2 or #3: 1 Result Comment: Non- GFR Calc Performed By: #### L 501.4020, L100.0100, L500.2500 ####[facility] [address] [place], [address] Glucose [Mass/Vol] 197 mg/dL High 74-106 [facility] Comment on above: Order Comment: 'TROP ' Serial specimen #1, #2 or #3: 1 Result Comment: Fast ing Glucose result greater than or equal to 126 mg/dLsuggests DIABETES MELLITUS per A.D.A. criteria. Performed By: #### L 501.4020, L100.0100, L500.2500 ####[facility] [address] [place], [address] Potassium [Moles/Vol] 4.6 mmol/L Normal 3.5-5.1 [facility] Comment on above: Order Comment: 'TROP ' Serial specimen #1, #2 or #3: 1 Performed By: #### L 501.4020, L100.0100, L500.2500 ####[facility] [address] [place], [address] Sodium [Moles/Vol] 134 mmol/L Low 136-145 [facility] Comment on above: Order Comment: 'TROP ' Serial specimen #1, #2 or #3: 1 Performed By: #### L 501.4020, L100.0100, L500.2500 ####[facility] [address] [place], [address] Urea nitrogen [Mass/Vol] 19 mg/dL High 7-18 [facility] Comment on above: Order Comment: 'TROP ' Serial specimen #1, #2 or #3: 1 Performed By: #### L 501.4020, L100.0100, L500.2500 ####[facility] [address] [place], [address] Basophil percentageOrdered B y: Amber Martino on 07-28-2024 Basophils/100 WBC (Bld) 0.7 % 0-1 [facility] Bilirubin Test strip Ql (U)O rdered By: Amber Martino on 07-28-2024 Bilirubin Ql (U) Negative Negative [facility] Blood urea nitrogen (BUN)/cr eatinine ratioOrdered By: Amber Martino on 07-28-2024 Urea nitrogen/Creatinine [Mass ratio] 18.1 mg/mg 10-20 [facility] CBC W/Diff, Automatedon 07-18 PLT EST ADEQUATE Normal ADEQ [facility] Comment on above: Performed By: #### L 501.4020, L100.0100, L500.2500 ####[facility] [address] [place], [address] Carbon dioxide measurementOr dered By: Amber Martino on 07-28-2024 CO2 [Moles/Vol] 25.0 mmol/L 21.0-32.0 [facility] Chloride measurementOrdered By: Amber Martino on 07-28-2024 Chloride [Moles/Vol] 103 mmol/L 98-107 [facility] Emergency Department Summary on 07-28-2024 Emergency Department Summary Normal [facility] Eosinophil percentageOrdered By: Amber Martino on 07-28-2024 Eosinophils/100 WBC (Bld) 4.5 % 0-5 [facility] Epithelial cells.squamous LM Ql (Urine sed)Ordered By: Amber Martino on 07-28-2024 Epithelial cells.squamous LM.HPF (Urine sed) [#/Area] 0 /[HPF] 5-10 [facility] Erythrocyte distribution wid th ratioOrdered By: Amber Martino on 07-28-2024 Erythrocyte distribution width (RBC) [Ratio] 12.6 % 11.6-14.6 [facility] Erythrocyte distribution wid th standard deviationOrdered By: Amber Martino on 07-28-2024 Erythrocyte distribution width (RBC) [Entitic vol] 40.6 fL 35.1-43.9 [facility] Estimated glomerular filtrat ion rate (GFR) AmericanOrdered By: Amber Martino on 07-28-2024 Estimated GFR (MDRD) Amer 65 mL/min >60 [facility] Comment on above: GFR Calc Estimation of creatinine kimberly aranceOrdered By: Amber Martino on 07-28-2024 Estimated Creatinine Clearance Calc 66.56 ml/min [facility] Glomerular filtration rate ( GFR) estimationOrdered By: Amber Martino on 07-28-2024 Estimated GFR (MDRD) Non-Af Amer 54 mL/min Low >60 [facility] Comment on above: Non- GFR Calc Glucose Ql (U)Ordered By: Daniel Martino on 07-28-2024 Urine Glucose (UA) Normal mg/dl Normal [facility] Glucose measurementOrdered B y: Amber Martino on 07-28-2024 Glucose [Mass/Vol] 197 mg/dL High 74-106 [facility] Comment on above: Fasting Glucose resu lt greater than or equal to 126 mg/dL suggests DIABETES MELLITUS per A.D.A. criteria. Hematocrit Auto (Bld) [Volum e fraction]Ordered By: Amber Martino on 07-28-2024 Hematocrit (Bld) [Volume fraction] 41.0 % 37-47 [facility] Hemoglobin measurementOrdere d By: Amber Martino on 07-28-2024 Hemoglobin (Bld) [Mass/Vol] 13.6 g/dL 12.0-15.0 [facility] Immature granulocytes/100 WB C Auto (Bld)Ordered By: Amber Martino on 07-28-2024 Immature granulocytes/100 WBC (Bld) 0.300 % 0.0-0.9 [facility] Comment on above: IG% - Immature Granu locytes (promyelocytes, myelocytes and metamyelocytes) > 1% indicates that a LEFT SHIFT is Present. Ketones Test strip Ql (U)Ord ered By: Amber Martino on 07-28-2024 Ketones Ql (U) 5 mg/dl High Negative [facility] L501.4020on 07-28-2024 TROPONIN-I HS 12 pg/mL Normal 3.0-54.0 [facility] Comment on above: Order Comment: 'TROP ' Serial specimen #1, #2 or #3: 1 Result Comment: Jeffrey quintana Note: New Test Units and Gender Specific Reference Ranges. For more information see Policy Stat Procedure [place] High Sensitivity Troponin (TNIH) and attachments. Performed By: #### L 501.4020, L100.0100, L500.2500 ####[facility] [address] [place], [address] Lymphocytes Auto (Unsp spec) [#/Vol]Ordered By: Amber Martino on 07-28-2024 Lymphocytes (Bld) [#/Vol] 1.12 10*3/uL 0.83-4.51 [facility] Lymphocytes/100 WBC Auto (Un sp spec)Ordered By: Amber Martino on 07-28-2024 Lymphocytes/100 WBC (Bld) 15.6 % Low 19-41 [facility] MCV (mean corpuscular volume ) determinationOrdered By: Amber Martino on 07-28-2024 MCV (RBC) [Entitic vol] 88.4 fL 81-99 [facility] Manual differential comment Ferny (Bld) [Interp]Ordered By: Amber Martino on 07-28-2024 Differential Comment SCANNED [facility] Mean corpuscular hemoglobin (MCH) determinationOrdered By: Amber Martino on 07-28-2024 MCH (RBC) [Entitic mass] 29.3 pg 27.0-32.0 [facility] Mean corpuscular hemoglobin concentration (MCHC) determinationOrdered By: Amber Martino on 07-28-2024 MCHC (RBC) [Mass/Vol] 33.2 g/dL 32-36 [facility] Mean platelet volume determi nationOrdered By: Amber Martino on 07-28-2024 Mean Platelet Volume Not Reportable [facility] Microscopic analysis of urin e for red blood cells (RBC)Ordered By: Amber Martino on 07-28-2024 Urine RBC 0 SEEN /hpf 0-5 [facility] Monocyte percentageOrdered B y: Amber Martino on 07-28-2024 Monocytes/100 WBC (Bld) 7.7 % 0-10 [facility] Mucus LM Ql (Urine sed)Order ed By: Amber Martino on 07-28-2024 Mucus Ql (Urine sed) 0 SEEN /hpf [facility] Neutrophil percentageOrdered By: Amber Martino on 07-28-2024 Neutrophils/100 WBC (Bld) 71.2 % High 47-70 [facility] Nitrite Test strip Ql (U)Ord ered By: Amber Martino on 07-28-2024 Nitrite Ql (U) Negative Negative [facility] Nucleated red blood cell per centageOrdered By: Amber Martino on 07-28-2024 Nucleated RBC/100 WBC (Bld) [Ratio] 0 % 0-5 [facility] Platelet countOrdered By: Daniel Martino on 07-28-2024 Platelet Count See comment 150-450 [facility] Comment on above: Please note: For thi s sample, a platelet estimate is provided rather than a platelet count due to platelet clumping. Other parameters associated with this sample are not affected by platelet clumping. If a more accurate platelet count is required, a redraw of the patient will be necessary. Platelets LM Ql (Bld)Ordered By: Amber Martino on 07-28-2024 Platelet Estimate ADEQUATE ADEQ [facility] Potassium measurementOrdered By: Amber Martino on 07-28-2024 Potassium [Moles/Vol] 4.6 mmol/L 3.5-5.1 [facility] Protein Test strip Ql (U)Ord ered By: Amber Martino on 07-28-2024 Protein Ql (U) Negative Negative [facility] RBC Auto (Bld) [#/Vol]Ordere d By: Amber Martino on 07-28-2024 RBC (Bld) [#/Vol] 4.64 10*6/uL 4.2-5.4 [facility] Serum anion gap measurementO rdered By: Amber Martino on 07-28-2024 Anion gap [Moles/Vol] 6 mmol/L 5-15 [facility] Serum or plasma calcium zora urement (mass/volume)Ordered By: Amber Martino on 07-28-2024 Calcium [Mass/Vol] 9.3 mg/dL 8.5-10.1 [facility] Serum or plasma creatinine m easurement (mass/volume)Ordered By: Amber Martino on 07-28-2024 Creatinine [Mass/Vol] 1.05 mg/dL High 0.55-1.02 [facility] Comment on above: The validity of the calculated GFR & GFRAA in patients over 70 years has not been determined. Clinical correlation is essential. Serum or plasma urea nitroge n measurement (mass/volume)Ordered By: Amber Martino on 07-28-2024 Urea nitrogen [Mass/Vol] 19 mg/dL High 7-18 [facility] Sodium levelOrdered By: Amber Martino on 07-28-2024 Sodium [Moles/Vol] 134 mmol/L Low 136-145 [facility] Troponin IOrdered By: Amber caputo on 07-28-2024 Troponin I High Sensitivity 12 pg/mL 3.0-54.0 [facility] Comment on above: Please Note: New [place] t Units and Gender Specific Reference Ranges. For more information see Policy Stat Procedure [place] High Sensitivity Troponin (TNIH) and attachments. Urinalysis, Completeon 07-28 WBC 0-5 SEEN Normal 0-5 [facility] Comment on above: Order Comment: DERRICK CTOR TO SPECIFY Performed By: #### L 400.0001 ####[facility] [address] [place], [address] BACTERIA 0 SEEN Normal None Seen [facility] Comment on above: Order Comment: DERRICK CTOR TO SPECIFY Performed By: #### L 400.0001 ####[facility] [address] [place], [address] EPI,SQUAMOUS 0 SEEN Normal 5-10 [facility] Comment on above: Order Comment: DERRICK CTOR TO SPECIFY Performed By: #### L 400.0001 ####[facility] [address] [place], [address] Mucus Ql (Urine sed) 0 SEEN Normal [facility] Comment on above: Order Comment: DERRICK CTOR TO SPECIFY Performed By: #### L 400.0001 ####[facility] [address] [place], [address] RBC 0 SEEN Normal 0-5 [facility] Comment on above: Order Comment: DERRICK CTOR TO SPECIFY Performed By: #### L 400.0001 ####[facility] [address] [place], [address] Urine blood detectionOrdered By: Amber Martino on 07-28-2024 Urine Occult Blood Negative Negative [facility] Urine clarityOrdered By: Venita Martino on 07-28-2024 Clarity (U) Clear Clear [facility] Urine color determinationOrd ered By: Amber Martino on 07-28-2024 Color (U) Yellow Yellow [facility] Urine leukocyte esterase det ection by dipstickOrdered By: Amber Martino on 07-28-2024 Leukocyte esterase Test strip Ql (U) 100 /ul High Negative [facility] Urine pHOrdered By: Ambergm magallanes on 07-28-2024 pH (U) 6.5 [pH] 5.0 - 8.0 [facility] Urine sediment bacteria coun t by microscopy (number/high power field)Ordered By: Ambergm Martino on 07-28-2024 Bacteria LM.HPF (Urine sed) [#/Area] 0 /[HPF] None Seen [facility] Urine specific gravity measu rementOrdered By: Amber Salena on 07-28-2024 Specific gravity (U) [Rel density] 1.010 1.002-1.030 [facility] Urobilinogen Ql (U)Ordered B y: Amber Salena on 07-28-2024 Urine Urobilinogen Normal mg/dl Normal [facility] White blood cell (WBC) count Ordered By: Amber Salena on 07-28-2024 WBC (Bld) [#/Vol] 7.2 10*3/uL 4.4-11.0 [facility] White blood cell countOrdere d By: Amber Salena on 07-28-2024 Urine WBC 0-5 SEEN /hpf 0-5 [facility] CNPNon 07-19-2024 CNPN Normal [facility] CNPNon 07-16-2024 CNPN Normal [facility] CNOVon 07-03-2024 CNOV Normal [facility] L501.4020on 07-03-2024 TROPONIN-I HS 12 pg/mL Normal 3.0-54.0 [facility] Comment on above: Result Comment: Jeffrey quintana Note: New Test Units and Gender Specific Reference Ranges. For more information see Policy Stat Procedure [place] High Sensitivity Troponin (TNIH) and attachments. Performed By: #### L 501.4020 ####[facility] [address] [place], [address] Troponin IOrdered By: Eduardo Paz on 07-03-2024 Troponin I High Sensitivity 12 pg/mL 3.0-54.0 [facility] Comment on above: Please Note: New [place] t Units and Gender Specific Reference Ranges. For more information see Policy Stat Procedure [place] High Sensitivity Troponin (TNIH) and attachments. 12 Lead EKGon 07-02-2024 12 Lead EKG Normal [facility] Absolute neutrophil countOrd ered By: Eduardo Paz on 07-02-2024 Neutrophils (Bld) [#/Vol] 3.2 10*3/uL 2.0-7.7 [facility] Basic Metabolic Profile (BMP )on 07-02-2024 BUN/CRE 22.7 RATIO High 10-20 [facility] Comment on above: Order Comment: 1Y Performed By: #### L 500.2500, L501.5425, L100.0100 ####[facility] [address] [place], [address] CA,Total 9.4 mg/dL Normal 8.5-10.1 [facility] Comment on above: Order Comment: 1Y Performed By: #### L 500.2500, L501.5425, L100.0100 ####[facility] [address] [place], [address] Chloride [Moles/Vol] 103 mmol/L Normal 98-107 [facility] Comment on above: Order Comment: 1Y Performed By: #### L 500.2500, L501.5425, L100.0100 ####[facility] [address] [place], [address] CO2 [Moles/Vol] 28.0 mmol/L Normal 21.0-32.0 [facility] Comment on above: Order Comment: 1Y Performed By: #### L 500.2500, L501.5425, L100.0100 ####[facility] [address] [place], [address] Creatinine [Mass/Vol] 0.84 mg/dL Normal 0.55-1.02 [facility] Comment on above: Order Comment: 1Y Result Comment: The validity of the calculated GFR GFRAA in patients over70 years has not been determined. Clinical correlation isessential. Performed By: #### L 500.2500, L501.5425, L100.0100 ####[facility] [address] [place], [address] ECRCL 82.67 ml/min Normal [facility] Comment on above: Order Comment: 1Y Performed By: #### L 500.2500, L501.5425, L100.0100 ####[facility] [address] [place], [address] EST GFR - AA 84 mL/min Normal >60 [facility] Comment on above: Order Comment: 1Y Result Comment: Afri can [place]an GFR Calc Performed By: #### L 500.2500, L501.5425, L100.0100 ####[facility] [address] [place], [address] GAP 6 Normal 5-15 [facility] Comment on above: Order Comment: 1Y Performed By: #### L 500.2500, L501.5425, L100.0100 ####[facility] [address] [place], [address] GFR/1.73 sq M.predicted among non-blacks MDRD (S/P/Bld) [Vol rate/Area] 70 mL/min/{1.73_m2} Normal >60 [facility] Comment on above: Order Comment: 1Y Result Comment: Non- GFR Calc Performed By: #### L 500.2500, L501.5425, L100.0100 ####[facility] [address] [place], [address] Glucose [Mass/Vol] 195 mg/dL High 74-106 [facility] Comment on above: Order Comment: 1Y Result Comment: Fast ing Glucose result greater than or equal to 126 mg/dLsuggests DIABETES MELLITUS per A.D.A. criteria. Performed By: #### L 500.2500, L501.5425, L100.0100 ####[facility] [address] [place], [address] Potassium [Moles/Vol] 3.7 mmol/L Normal 3.5-5.1 [facility] Comment on above: Order Comment: 1Y Performed By: #### L 500.2500, L501.5425, L100.0100 ####[facility] [address] [place], [address] Sodium [Moles/Vol] 137 mmol/L Normal 136-145 [facility] Comment on above: Order Comment: 1Y Performed By: #### L 500.2500, L501.5425, L100.0100 ####[facility] [address] [place], [address] Urea nitrogen [Mass/Vol] 19 mg/dL High -18 [facility] Comment on above: Order Comment: 1Y Performed By: #### L 500.2500, L501.5425, L100.0100 ####[facility] [address] [place], [address] Basophil percentageOrdered B y: Eduardo Paz on 07-02-2024 Basophils/100 WBC (Bld) 0.4 % 0-1 [facility] Blood urea nitrogen (BUN)/cr eatinine ratioOrdered By: Eduardo Paz on 07-02-2024 Urea nitrogen/Creatinine [Mass ratio] 22.7 mg/mg High 10-20 [facility] CBC W/Diff, Automatedon 06-17 Absolute Lymph 1.33 X10 3/uL Normal 0.83-4.51 [facility] Comment on above: Performed By: #### L 500.2500, L501.5425, L100.0100 ####[facility] [address] [place], [address] Absolute Neut 3.2 X10 3/uL Normal 2.0-7.7 [facility] Comment on above: Performed By: #### L 500.2500, L501.5425, L100.0100 ####[facility] [address] [place], [address] Basophils/100 WBC (Bld) 0.4 % Normal 0-1 [facility] Comment on above: Performed By: #### L 500.2500, L501.5425, L100.0100 ####[facility] [address] [place], [address] Eosinophils/100 WBC (Bld) 3.3 % Normal 0-5 [facility] Comment on above: Performed By: #### L 500.2500, L501.5425, L100.0100 ####[facility] [address] [place], [address] Erythrocyte distribution width (RBC) [Ratio] 12.5 % Normal 11.6-14.6 [facility] Comment on above: Performed By: #### L 500.2500, L501.5425, L100.0100 ####[facility] [address] [place], [address] Hematocrit (Bld) [Volume fraction] 38.9 % Normal 37-47 [facility] Comment on above: Performed By: #### L 500.2500, L501.5425, L100.0100 ####[facility] [address] [place], [address] Hemoglobin (Bld) [Mass/Vol] 12.7 g/dL Normal 12.0-15.0 [facility] Comment on above: Performed By: #### L 500.2500, L501.5425, L100.0100 ####[facility] [address] [place], [address] IG% 0.200 Normal 0.0-0.9 [facility] Comment on above: Result Comment: IG% - Immature Granulocytes (promyelocytes, myelocytes andmetamyelocytes) > 1% indicates that a LEFT SHIFT is Present. Performed By: #### L 500.2500, L501.5425, L100.0100 ####[facility] [address] [place], [address] Lymphocytes/100 WBC (Bld) 25.5 % Normal 19-41 [facility] Comment on above: Performed By: #### L 500.2500, L501.5425, L100.0100 ####[facility] [address] [place], [address] [facility] (RBC) [Entitic mass] 29.1 pg Normal 27.0-32.0 [facility] Comment on above: Performed By: #### L 500.2500, L501.5425, L100.0100 ####[facility] [address] [place], [address] MCHC (RBC) [Mass/Vol] 32.6 g/dL Normal 32-36 [facility] Comment on above: Performed By: #### L 500.2500, L501.5425, L100.0100 ####[facility] [address] [place], [address] MCV (RBC) [Entitic vol] 89.0 fL Normal 81-99 [facility] Comment on above: Performed By: #### L 500.2500, L501.5425, L100.0100 ####[facility] [address] [place], [address] Monocytes/100 WBC (Bld) 9.8 % Normal 0-10 [facility] Comment on above: Performed By: #### L 500.2500, L501.5425, L100.0100 ####[facility] [address] [place], [address] Neutrophils/100 WBC (Bld) 60.8 % Normal 47-70 [facility] Comment on above: Performed By: #### L 500.2500, L501.5425, L100.0100 ####[facility] [address] [place], [address] Nucleated RBC (Bld) [#/Vol] 0 10*3/uL Normal 0-5 [facility] Comment on above: Performed By: #### L 500.2500, L501.5425, L100.0100 ####[facility] [address] [place], [address] Platelet mean volume (Bld) [Entitic vol] 12.2 fL High 6.2-12.0 [facility] Comment on above: Performed By: #### L 500.2500, L501.5425, L100.0100 ####[facility] [address] [place], [address] Platelets (Bld) [#/Vol] 183 10*3/uL Normal 150-450 [facility] Comment on above: Performed By: #### L 500.2500, L501.5425, L100.0100 ####[facility] [address] [place], [address] RBC (Bld) [#/Vol] 4.37 10*6/uL Normal 4.2-5.4 [facility] Comment on above: Performed By: #### L 500.2500, L501.5425, L100.0100 ####[facility] [address] [place], [address] RDW SD 41.1 fl Normal 35.1-43.9 [facility] Comment on above: Performed By: #### L 500.2500, L501.5425, L100.0100 ####[facility] [address] [place], [address] WBC (Bld) [#/Vol] 5.2 10*3/uL Normal 4.4-11.0 [facility] Comment on above: Performed By: #### L 500.2500, L501.5425, L100.0100 ####[facility] [address] [place], [address] Carbon dioxide measurementOr dered By: Eduardo Paz on 07-02-2024 CO2 [Moles/Vol] 28.0 mmol/L 21.0-32.0 [facility] Chest 1 View (Portable)on Chest 1 View (Portable) Normal [facility] Chloride measurementOrdered By: Eduardo Paz on 07-02-2024 Chloride [Moles/Vol] 103 mmol/L 98-107 [facility] Emergency Department Summary on 07-02-2024 Emergency Department Summary Normal [facility] Eosinophil percentageOrdered By: Eduardo Paz on 07-02-2024 Eosinophils/100 WBC (Bld) 3.3 % 0-5 [facility] Erythrocyte distribution wid th ratioOrdered By: Eduardo Paz on 07-02-2024 Erythrocyte distribution width (RBC) [Ratio] 12.5 % 11.6-14.6 [facility] Erythrocyte distribution wid th standard deviationOrdered By: Eduardo Hua on 07-02-2024 Erythrocyte distribution width (RBC) [Entitic vol] 41.1 fL 35.1-43.9 [facility] Estimated glomerular filtrat ion rate (GFR) AmericanOrdered By: Eduardo Paz on 07-02-2024 Estimated GFR (MDRD) Amer 84 mL/min >60 [facility] Comment on above: GFR Calc Estimation of creatinine kimberly aranceOrdered By: Eduardo Paz on 07-02-2024 Estimated Creatinine Clearance Calc 82.67 ml/min [facility] Glomerular filtration rate ( GFR) estimationOrdered By: Eduardo Paz on 07-02-2024 Estimated GFR (MDRD) Non-Af Amer 70 mL/min >60 [facility] Comment on above: Non- GFR Calc Glucose measurementOrdered B y: Eduardo Paz on 07-02-2024 Glucose [Mass/Vol] 195 mg/dL High 74-106 [facility] Comment on above: Fasting Glucose resu lt greater than or equal to 126 mg/dL suggests DIABETES MELLITUS per A.D.A. criteria. Hematocrit Auto (Bld) [Volum e fraction]Ordered By: Eduardo Paz on 07-02-2024 Hematocrit (Bld) [Volume fraction] 38.9 % 37-47 [facility] Hemoglobin measurementOrdere d By: Eduardo Paz on 07-02-2024 Hemoglobin (Bld) [Mass/Vol] 12.7 g/dL 12.0-15.0 [facility] Immature granulocytes/100 WB C Auto (Bld)Ordered By: Eduardo Paz on 07-02-2024 Immature granulocytes/100 WBC (Bld) 0.200 % 0.0-0.9 [facility] Comment on above: IG% - Immature Granu locytes (promyelocytes, myelocytes and metamyelocytes) > 1% indicates that a LEFT SHIFT is Present. L501.5425on 07-02-2024 TROPONIN-I HS 15 pg/mL Normal 3.0-54.0 [facility] Comment on above: Order Comment: 1Y Result Comment: Jeffrey quintana Note: New Test Units and Gender Specific Reference Ranges. For more information see Policy Stat Procedure [place] High Sensitivity Troponin (TNIH) and attachments. Performed By: #### L 500.2500, L501.5425, L100.0100 ####[facility] [address] [place], [address] Lymphocytes Auto (Unsp spec) [#/Vol]Ordered By: Eduardodidi Paz on 07-02-2024 Lymphocytes (Bld) [#/Vol] 1.33 10*3/uL 0.83-4.51 [facility] Lymphocytes/100 WBC Auto (Un sp spec)Ordered By: Eduardo Paz on 07-02-2024 Lymphocytes/100 WBC (Bld) 25.5 % 19-41 [facility] MCV (mean corpuscular volume ) determinationOrdered By: Eduardo Paz on 07-02-2024 MCV (RBC) [Entitic vol] 89.0 fL 81-99 [facility] Mean corpuscular hemoglobin (MCH) determinationOrdered By: Eduardo Paz on 07-02-2024 MCH (RBC) [Entitic mass] 29.1 pg 27.0-32.0 [facility] Mean corpuscular hemoglobin concentration (MCHC) determinationOrdered By: Eduardo Paz on 07-02-2024 MCHC (RBC) [Mass/Vol] 32.6 g/dL 32-36 [facility] Mean platelet volume determi nationOrdered By: Eduardo Paz on 07-02-2024 Platelet mean volume (Bld) [Entitic vol] 12.2 fL High 6.2-12.0 [facility] Monocyte percentageOrdered B y: Eduardo Paz on 07-02-2024 Monocytes/100 WBC (Bld) 9.8 % 0-10 [facility] Neutrophil percentageOrdered By: Eduardo Paz on 07-02-2024 Neutrophils/100 WBC (Bld) 60.8 % 47-70 [facility] Nucleated red blood cell per centageOrdered By: Eduardo Paz on 07-02-2024 Nucleated RBC/100 WBC (Bld) [Ratio] 0 % 0-5 [facility] Platelet countOrdered By: Krzysztof Paz on 07-02-2024 Platelets (Bld) [#/Vol] 183 10*3/uL 150-450 [facility] Potassium measurementOrdered By: Eduardo Paz on 07-02-2024 Potassium [Moles/Vol] 3.7 mmol/L 3.5-5.1 [facility] RBC Auto (Bld) [#/Vol]Ordere d By: Eduardo Paz on 07-02-2024 RBC (Bld) [#/Vol] 4.37 10*6/uL 4.2-5.4 [facility] Serum anion gap measurementO rdered By: Eduardo Paz on 07-02-2024 Anion gap [Moles/Vol] 6 mmol/L 5-15 [facility] Serum or plasma calcium zora urement (mass/volume)Ordered By: Eduardo Hua on 07-02-2024 Calcium [Mass/Vol] 9.4 mg/dL 8.5-10.1 [facility] Serum or plasma creatinine m easurement (mass/volume)Ordered By: Eduardo Hua on 07-02-2024 Creatinine [Mass/Vol] 0.84 mg/dL 0.55-1.02 [facility] Comment on above: The validity of the calculated GFR & GFRAA in patients over 70 years has not been determined. Clinical correlation is essential. Serum or plasma urea nitroge n measurement (mass/volume)Ordered By: Eduardo Paz on 07-02-2024 Urea nitrogen [Mass/Vol] 19 mg/dL High 7-18 [facility] Sodium levelOrdered By: Jack Paz on 07-02-2024 Sodium [Moles/Vol] 137 mmol/L 136-145 [facility] White blood cell (WBC) count Ordered By: Eduardo Paz on 07-02-2024 WBC (Bld) [#/Vol] 5.2 10*3/uL 4.4-11.0 [facility] CNPNon 06-29-2024 CNPN Normal [facility] Bacteria Ur Culton Bacteria identified Cx Nom (U) ORGANISM ID: 1 <10,000 CFU/ml Normal urogenital lawanda Normal [facility] Comment on above: Performed By: #### 6 30-4 ####[facility] LABCLIA [id number] [facility] [id number] [place] [address] [place] Urinalysis complete panel (U )on 06-28-2024 Bacteria LM.HPF (Urine sed) [#/Area] Negative Normal Negative [facility] Comment on above: Order Comment: Speci men Type: URINE SPECIMENOrdering Facility: [facility] Address: [address] [place] [address] Performed By: #### 2 4356-8 ####[facility] LABCLIA [id number] [place] [address] [place] Bilirubin Ql (U) Negative Normal Negative [facility] Comment on above: Order Comment: Speci men Type: URINE SPECIMENOrdering Facility: [facility] Address: [address] [place] [address] Performed By: #### 2 4356-8 ####[facility] LABCLIA [id number] [place] [address] [place] Clarity (Unsp spec) Clear Normal Clear [facility] Comment on above: Order Comment: Speci men Type: URINE SPECIMENOrdering Facility: [facility] Address: [address] [place] [address] Performed By: #### 2 4356-8 ####[facility] LABCLIA [id number] [place] [address] [place] Color (U) Yellow Normal Yellow [facility] Comment on above: Order Comment: Speci men Type: URINE SPECIMENOrdering Facility: [facility] Address: [address] [place] [address] Performed By: #### 2 4356-8 ####[facility] LABIA [id number] [place] [address] [place] Epithelial cells LM.HPF (Urine sed) [#/Area] None Seen Normal [facility] Comment on above: Order Comment: Speci men Type: URINE SPECIMENOrdering Facility: [facility] Address: [address] [place] [address] Performed By: #### 2 4356-8 ####[facility] LABIA [id number] [place] [address] [place] Glucose Test strip (U) [Mass/Vol] Negative Normal Negative [facility] Comment on above: Order Comment: Speci men Type: URINE SPECIMENOrdering Facility: [facility] Address: [address] [place] [address] Performed By: #### 2 4356-8 ####[facility] LABCLIA [id number] [place] [address] [place] Hemoglobin Ql (U) Negative Normal Negative [facility] Comment on above: Order Comment: Speci men Type: URINE SPECIMENOrdering Facility: [facility] Address: [address] [place] [address] Performed By: #### 2 4356-8 ####[facility] LABCLIA [id number] [place] [address] [place] Hyaline casts (Urine sed) [#/Area] 0 /[LPF] Normal 0 /LPF [facility] Comment on above: Order Comment: Speci men Type: URINE SPECIMENOrdering Facility: [facility] Address: [address] [place] [address] Performed By: #### 2 4356-8 ####[facility] LABCLIA [id number] [place] [address] [place] Ketones Ql (U) Negative Normal Negative [facility] Comment on above: Order Comment: Speci men Type: URINE SPECIMENOrdering Facility: [facility] Address: [address] [place] [address] Performed By: #### 2 4356-8 ####[facility] LABCLIA [id number] [place] [address] [place] Leukocyte esterase Test strip Ql (U) Trace Abnormal Negative [facility] Comment on above: Order Comment: Speci men Type: URINE SPECIMENOrdering Facility: [facility] Address: [address] [place] [address] Performed By: #### 2 4356-8 ####[facility] LABCLIA [id number] [place] [address] [place] Nitrite Ql (U) Negative Normal Negative [facility] Comment on above: Order Comment: Speci men Type: URINE SPECIMENOrdering Facility: [facility] Address: [address] [place] [address] Performed By: #### 2 4356-8 ####[facility] LABCLIA [id number] [place] [address] [place] pH (U) 6.0 [pH] Normal <8.5 [facility] Comment on above: Order Comment: Speci men Type: URINE SPECIMENOrdering Facility: [facility] Address: [address] [place] [address] Performed By: #### 2 4356-8 ####[facility] LABCLIA [id number] [place] [address] [place] Protein (U) [Mass/Vol] Negative Normal Negative [facility] Comment on above: Order Comment: Speci men Type: URINE SPECIMENOrdering Facility: [facility] Address: [address] [place] [address] Performed By: #### 2 4356-8 ####[facility] LABCLIA [id number] [place] [address] [place] RBC LM.HPF (Urine sed) [#/Area] 0-2 /HPF Normal 0-2 /HPF [facility] Comment on above: Order Comment: Speci men Type: URINE SPECIMENOrdering Facility: [facility] Address: [address] [place] [address] Performed By: #### 2 4356-8 ####[facility] LABCLIA [id number] [place] [address] [place] Specific gravity (U) [Rel density] 1.013 Normal 1.005-1.030 [facility] Comment on above: Order Comment: Speci men Type: URINE SPECIMENOrdering Facility: [facility] Address: [address] [place] [address] Performed By: #### 2 4356-8 ####[facility] LABCLIA [id number] [place] [address] [place] Urobilinogen Ql (U) 0.2 EU/dL Normal 0.2-1.0 EU/dL [facility] Comment on above: Order Comment: Speci men Type: URINE SPECIMENOrdering Facility: [facility] Address: [address] [place] [address] Performed By: #### 2 4356-8 ####[facility] LABCLIA [id number] [place] [address] [place] WBC LM.HPF (Urine sed) [#/Area] 6-10 /HPF Abnormal 0-5 /HPF [facility] Comment on above: Order Comment: Speci men Type: URINE SPECIMENOrdering Facility: [facility] Address: [address] [place] [address] Performed By: #### 2 4356-8 ####[facility] LABCLIA [id number] [place] [id number] [place] CNPNon 06-26-2024 CNPN Normal [facility] CNPTOUTREACHon 06-21-2024 CNPTOUTREACH Normal [facility] 12 Lead EKG performed by BMS on 06-13-2024 12 Lead EKG performed by BMS Normal [facility] Cardiology Visit Reporton Cardiology Visit Report Normal [facility] CNOVon 06-11-2024 CNOV Normal [facility] Urine Cultureon 06-09-2024 URC Culture exhibits no growth. Normal [facility] Comment on above: Performed By: #### M 100.2200 ####[facility] [address] [place], [place], [id number] Absolute neutrophil countOrd ered By: Amber Martino on 06-08-2024 Neutrophils (Bld) [#/Vol] 5.4 10*3/uL 2.0-7.7 [facility] Acetone Serumon 06-08-2024 ACETONE SERUM Negative Normal NEG [facility] Comment on above: Performed By: #### L 501.6900, L100.0100, L500.2500 ####[facility] [address] [place], [address] Acetone [Mass/Vol]Ordered By : Amber Martino on 06-08-2024 Acetone Level Negative NEG [facility] Basic Metabolic Profile (BMP )on 06-08-2024 BUN/CRE 19.8 RATIO Normal 10-20 [facility] Comment on above: Performed By: #### L 501.6900, L100.0100, L500.2500 ####[facility] [address] [place], [address] CA,Total 8.8 mg/dL Normal 8.5-10.1 [facility] Comment on above: Performed By: #### L 501.6900, L100.0100, L500.2500 ####[facility] [address] [place], [address] Chloride [Moles/Vol] 102 mmol/L Normal 98-107 [facility] Comment on above: Performed By: #### L 501.6900, L100.0100, L500.2500 ####[facility] [address] [place], [address] CO2 [Moles/Vol] 27.0 mmol/L Normal 21.0-32.0 [facility] Comment on above: Performed By: #### L 501.6900, L100.0100, L500.2500 ####[facility] [address] [place], [address] Creatinine [Mass/Vol] 1.16 mg/dL High 0.55-1.02 [facility] Comment on above: Result Comment: The validity of the calculated GFR GFRAA in patients over70 years has not been determined. Clinical correlation isessential. Performed By: #### L 501.6900, L100.0100, L500.2500 ####[facility] [address] [place], [address] ECRCL 60.88 ml/min Normal [facility] Comment on above: Performed By: #### L 501.6900, L100.0100, L500.2500 ####[facility] [address] [place], [address] EST GFR - AA 58 mL/min Low >60 [facility] Comment on above: Result Comment: Afri can [place] GFR Calc Performed By: #### L 501.6900, L100.0100, L500.2500 ####[facility] [address] [place], [address] GAP 7 Normal 5-15 [facility] Comment on above: Performed By: #### L 501.6900, L100.0100, L500.2500 ####[facility] [address] [place], [address] GFR/1.73 sq M.predicted among non-blacks MDRD (S/P/Bld) [Vol rate/Area] 48 mL/min/{1.73_m2} Low >60 [facility] Comment on above: Result Comment: Non- GFR Calc Performed By: #### L 501.6900, L100.0100, L500.2500 ####[facility] [address] [place], [address] Glucose [Mass/Vol] 296 mg/dL High 74-106 [facility] Comment on above: Result Comment: Gluc ose result greater than or equal to 200 mg/dLsuggests DIABETES MELLITUS per A.D.A. criteria. Performed By: #### L 501.6900, L100.0100, L500.2500 ####[facility] [address] [place], [address] Potassium [Moles/Vol] 3.8 mmol/L Normal 3.5-5.1 [facility] Comment on above: Performed By: #### L 501.6900, L100.0100, L500.2500 ####[facility] [address] [place], [address] Sodium [Moles/Vol] 136 mmol/L Normal 136-145 [facility] Comment on above: Performed By: #### L 501.6900, L100.0100, L500.2500 ####[facility] [address] [place], [address] Urea nitrogen [Mass/Vol] 23 mg/dL High 7-18 [facility] Comment on above: Performed By: #### L 501.6900, L100.0100, L500.2500 ####[facility] [address] [place], [address] Basophil percentageOrdered B y: mAber Martino on 06-08-2024 Basophils/100 WBC (Bld) 0.6 % 0-1 [facility] Bedside Glucoseon 06-08-2024 FINGERSTICK GLU 274 mg/dL High 74-106 [facility] Comment on above: Result Comment: [facility] GEMENT OF PATIENT CARE PER NURSING PROTOCOL Performed By: #### L 501.080 ####[facility] [address] [place], [address] FINGERSTICK GLU 266 mg/dL High 74-106 [facility] Comment on above: Result Comment: [facility]ES GEMENT OF PATIENT CARE PER NURSING PROTOCOL Performed By: #### L 501.080 ####[facility] [address] [place], [address] FINGERSTICK GLU 291 mg/dL High 74-106 [facility] Comment on above: Result Comment: [facility]ES GEMENT OF PATIENT CARE PER NURSING PROTOCOL Performed By: #### L 501.080 ####[facility] [address] [place], [address] Bilirubin Test strip Ql (U)O rdered By: Amber Martino on 06-08-2024 Bilirubin Ql (U) Negative Negative [facility] Blood urea nitrogen (BUN)/cr eatinine ratioOrdered By: Amber Martino on 06-08-2024 Urea nitrogen/Creatinine [Mass ratio] 19.8 mg/mg - [facility] CBC W/Diff, Automatedon 05-19 Absolute Lymph 1.02 X10 3/uL Normal 0.83-4.51 [facility] Comment on above: Performed By: #### L 501.6900, L100.0100, L500.2500 ####[facility] [address] [place], [address] Absolute Neut 5.4 X10 3/uL Normal 2.0-7.7 [facility] Comment on above: Performed By: #### L 501.6900, L100.0100, L500.2500 ####[facility] [address] [place], [address] Basophils/100 WBC (Bld) 0.6 % Normal 0-1 [facility] Comment on above: Performed By: #### L 501.6900, L100.0100, L500.2500 ####[facility] [address] [place], [address] Eosinophils/100 WBC (Bld) 3.5 % Normal 0-5 [facility] Comment on above: Performed By: #### L 501.6900, L100.0100, L500.2500 ####[facility] [address] [place], [address] Erythrocyte distribution width (RBC) [Ratio] 12.9 % Normal 11.6-14.6 [facility] Comment on above: Performed By: #### L 501.6900, L100.0100, L500.2500 ####[facility] [address] [place], [address] Hematocrit (Bld) [Volume fraction] 38.8 % Normal 37-47 [facility] Comment on above: Performed By: #### L 501.6900, L100.0100, L500.2500 ####[facility] [address] [place], [address] Hemoglobin (Bld) [Mass/Vol] 12.8 g/dL Normal 12.0-15.0 [facility] Comment on above: Performed By: #### L 501.6900, L100.0100, L500.2500 ####[facility] [address] [place], [address] IG% 0.000 Normal 0.0-0.9 [facility] Comment on above: Result Comment: IG% - Immature Granulocytes (promyelocytes, myelocytes andmetamyelocytes) > 1% indicates that a LEFT SHIFT is Present. Performed By: #### L 501.6900, L100.0100, L500.2500 ####[facility] [address] [place], [address] Lymphocytes/100 WBC (Bld) 14.2 % Low 19-41 [facility] Comment on above: Performed By: #### L 501.6900, L100.0100, L500.2500 ####[facility] [address] [place], [address] MCH (RBC) [Entitic mass] 29.2 pg Normal 27.0-32.0 [facility] Comment on above: Performed By: #### L 501.6900, L100.0100, L500.2500 ####[facility] [address] [place], [address] MCHC (RBC) [Mass/Vol] 33.0 g/dL Normal 32-36 [facility] Comment on above: Performed By: #### L 501.6900, L100.0100, L500.2500 ####[facility] [address] [place], [address] MCV (RBC) [Entitic vol] 88.4 fL Normal 81-99 [facility] Comment on above: Performed By: #### L 501.6900, L100.0100, L500.2500 ####[facility] [address] [place], [address] Monocytes/100 WBC (Bld) 7.5 % Normal 0-10 [facility] Comment on above: Performed By: #### L 501.6900, L100.0100, L500.2500 ####[facility] [address] [place], [address] Neutrophils/100 WBC (Bld) 74.2 % High 47-70 [facility] Comment on above: Performed By: #### L 501.6900, L100.0100, L500.2500 ####[facility] [address] [place], [address] Nucleated RBC (Bld) [#/Vol] 0 10*3/uL Normal 0-5 [facility] Comment on above: Performed By: #### L 501.6900, L100.0100, L500.2500 ####[facility] [address] [place], [address] Platelet mean volume (Bld) [Entitic vol] 12.7 fL High 6.2-12.0 [facility] Comment on above: Performed By: #### L 501.6900, L100.0100, L500.2500 ####[facility] [address] [place], [address] Platelets (Bld) [#/Vol] 162 10*3/uL Normal 150-450 [facility] Comment on above: Performed By: #### L 501.6900, L100.0100, L500.2500 ####[facility] [facility] [address] [place], [address] RBC (Bld) [#/Vol] 4.39 10*6/uL Normal 4.2-5.4 [facility] Comment on above: Performed By: #### L 501.6900, L100.0100, L500.2500 ####[facility] [address] [place], [address] RDW SD 42.1 fl Normal 35.1-43.9 [facility] Comment on above: Performed By: #### L 501.6900, L100.0100, L500.2500 ####[facility] [address] [place], [address] WBC (Bld) [#/Vol] 7.2 10*3/uL Normal 4.4-11.0 [facility] Comment on above: Performed By: #### L 501.6900, L100.0100, L500.2500 ####[facility] [address] [place], [address] Carbon dioxide measurementOr dered By: Amber Martino on 06-08-2024 CO2 [Moles/Vol] 27.0 mmol/L 21.0-32.0 [facility] Chloride measurementOrdered By: Amber Martino on 06-08-2024 Chloride [Moles/Vol] 102 mmol/L 98-107 [facility] Emergency Department Summary on 06-08-2024 Emergency Department Summary Normal [facility] Eosinophil percentageOrdered By: Amber Martino on 06-08-2024 Eosinophils/100 WBC (Bld) 3.5 % 0-5 [facility] Epithelial cells.squamous LM Ql (Urine sed)Ordered By: Amber Martino on 06-08-2024 Epithelial cells.squamous LM.HPF (Urine sed) [#/Area] 0 /[HPF] 5-10 [facility] Erythrocyte distribution wid th ratioOrdered By: Amber Martino on 06-08-2024 Erythrocyte distribution width (RBC) [Ratio] 12.9 % 11.6-14.6 [facility] Erythrocyte distribution wid th standard deviationOrdered By: Amber Martino on 06-08-2024 Erythrocyte distribution width (RBC) [Entitic vol] 42.1 fL 35.1-43.9 [facility] Estimated glomerular filtrat ion rate (GFR) AmericanOrdered By: Amber Martino on 06-08-2024 Estimated GFR (MDRD) Amer 58 mL/min Low >60 [facility] Comment on above: GFR Calc Estimation of creatinine kimberly aranceOrdered By: Amber Martino on 06-08-2024 Estimated Creatinine Clearance Calc 60.88 ml/min [facility] Glomerular filtration rate ( GFR) estimationOrdered By: Amber Martino on 06-08-2024 Estimated GFR (MDRD) Non-Af Amer 48 mL/min Low >60 [facility] Comment on above: Non- GFR Calc Glucose Ql (U)Ordered By: Daniel Martino on 06-08-2024 Urine Glucose (UA) Normal mg/dl Normal [facility] Glucose measurementOrdered B y: Amber Martino on 06-08-2024 Glucose [Mass/Vol] 296 mg/dL [facility] 74-106 [facility] Comment on above: Glucose result great er than or equal to 200 mg/dLsuggests DIABETES MELLITUS per A.D.A. criteria. [facility] deOrdered By: Reyna Monzon on 06-08-2024 Bedside Glucose (Misc Panel) 274 mg/dL [address] [facility] Comment on above: MANAGEMENT OF PATIEN T CARE PER NURSING PROTOCOL Hematocrit Auto (Bld) [Volum e fraction]Ordered By: Amber Martino on 06-08-2024 Hematocrit (Bld) [Volume fraction] 38.8 % 37-47 [facility] Hemoglobin measurementOrdere d By: Amber Martino on 06-08-2024 Hemoglobin (Bld) [Mass/Vol] 12.8 g/dL 12.0-15.0 [facility] Immature granulocytes/100 WB C Auto (Bld)Ordered By: Amber Martino on 06-08-2024 Immature granulocytes/100 WBC (Bld) 0.000 % 0.0-0.9 [facility] Comment on above: IG% - Immature Granu locytes (promyelocytes, myelocytes and metamyelocytes) > 1% indicates that a LEFT SHIFT is Present. Ketones Test strip Ql (U)Ord ered By: Amber Martino on 06-08-2024 Ketones Ql (U) Negative Negative [facility] Lymphocytes Auto (Unsp spec) [#/Vol]Ordered By: Amber Martino on 06-08-2024 Lymphocytes (Bld) [#/Vol] 1.02 10*3/uL 0.83-4.51 [facility] Lymphocytes/100 WBC Auto (Un sp spec)Ordered By: Amber Martino on 06-08-2024 Lymphocytes/100 WBC (Bld) 14.2 % Low 19-41 [facility] MCV (mean corpuscular volume ) determinationOrdered By: Amber Martino on 06-08-2024 MCV (RBC) [Entitic vol] 88.4 fL 81-99 [facility] Mean corpuscular hemoglobin (MCH) determinationOrdered By: Amber Martino on 06-08-2024 MCH (RBC) [Entitic mass] 29.2 pg 27.0-32.0 [facility] Mean corpuscular hemoglobin concentration (MCHC) determinationOrdered By: Amber Martino on 06-08-2024 MCHC (RBC) [Mass/Vol] 33.0 g/dL 32-36 [facility] Mean platelet volume determi nationOrdered By: Amber Martino on 06-08-2024 Platelet mean volume (Bld) [Entitic vol] 12.7 fL High 6.2-12.0 [facility] Microscopic analysis of urin e for red blood cells (RBC)Ordered By: Amber Martino on 06-08-2024 Urine RBC 0-5 SEEN /hpf 0-5 [facility] Monocyte percentageOrdered B y: Amber Martino on 06-08-2024 Monocytes/100 WBC (Bld) 7.5 % 0-10 [facility] Mucus LM Ql (Urine sed)Order ed By: Amber Martino on 06-08-2024 Mucus Ql (Urine sed) 0 SEEN /hpf [facility] Neutrophil percentageOrdered By: Amber Martino on 06-08-2024 Neutrophils/100 WBC (Bld) 74.2 % High 47-70 [facility] Nitrite Test strip Ql (U)Ord ered By: Amber Martino on 06-08-2024 Nitrite Ql (U) Negative Negative [facility] Nucleated red blood cell per centageOrdered By: Amber Martino on 06-08-2024 Nucleated RBC/100 WBC (Bld) [Ratio] 0 % 0-5 [facility] Platelet countOrdered By: Daniel Martino on 06-08-2024 Platelets (Bld) [#/Vol] 162 10*3/uL 150-450 [facility] Potassium measurementOrdered By: Amber Martino on 06-08-2024 Potassium [Moles/Vol] 3.8 mmol/L 3.5-5.1 [facility] Protein Test strip Ql (U)Ord ered By: Amber Martino on 06-08-2024 Protein Ql (U) Negative Negative [facility] RBC Auto (Bld) [#/Vol]Ordere d By: Amber Martino on 06-08-2024 RBC (Bld) [#/Vol] 4.39 10*6/uL 4.2-5.4 [facility] Serum anion gap measurementO rdered By: Amber Martino on 06-08-2024 Anion gap [Moles/Vol] 7 mmol/L 5-15 [facility] Serum or plasma calcium zora urement (mass/volume)Ordered By: Amber Martino on 06-08-2024 Calcium [Mass/Vol] 8.8 mg/dL 8.5-10.1 [facility] Serum or plasma creatinine m easurement (mass/volume)Ordered By: Amber Martino on 06-08-2024 Creatinine [Mass/Vol] 1.16 mg/dL High 0.55-1.02 [facility] Comment on above: The validity of the calculated GFR & GFRAA in patients over 70 years has not been determined. Clinical correlation is essential. Serum or plasma urea nitroge n measurement (mass/volume)Ordered By: Amber Martino on 06-08-2024 Urea nitrogen [Mass/Vol] 23 mg/dL High 7-18 [facility] Sodium levelOrdered By: Amber Martino on 06-08-2024 Sodium [Moles/Vol] 136 mmol/L 136-145 [facility] Urinalysis, Completeon 06-08 BACTERIA 1+ /hpf Normal None Seen [facility] Comment on above: Order Comment: CLEAN CATCH Performed By: #### L 400.0001 ####[facility] [address] [place], [address] RBC 0-5 SEEN Normal 0-5 [facility] Comment on above: Order Comment: CLEAN CATCH Performed By: #### L 400.0001 ####[facility] [address] [place], [address] WBC 5-10 SEEN Normal 0-5 [facility] Comment on above: Order Comment: CLEAN CATCH Performed By: #### L 400.0001 ####[facility] [address] [place], [address] EPI,SQUAMOUS 0 SEEN Normal 5-10 [facility] Comment on above: Order Comment: CLEAN CATCH Performed By: #### L 400.0001 ####[facility] [address] [place], [address] Mucus Ql (Urine sed) 0 SEEN Normal [facility] Comment on above: Order Comment: CLEAN CATCH Performed By: #### L 400.0001 ####[facility] [address] [place], [address] Urine blood detectionOrdered By: Amber Martino on 06-08-2024 Urine Occult Blood 10 /ul High Negative [facility] Urine clarityOrdered By: Venita Martino on 06-08-2024 Clarity (U) Sl. Cloudy Clear [facility] Urine color determinationOrd ered By: Amber Martino on 06-08-2024 Color (U) Straw Yellow [facility] Urine cultureOrdered By: Venita Martino on 06-08-2024 Bacteria identified Cx Nom (U) Culture exhibits no growth. [facility] Bacteria identified Cx Nom (U) Culture exhibits no growth. [facility] Urine leukocyte esterase det ection by dipstickOrdered By: Amber Martino on 06-08-2024 Leukocyte esterase Test strip Ql (U) 500 /ul High Negative [facility] Urine pHOrdered By: Ambergm magallanes on 06-08-2024 pH (U) 6.0 [pH] 5.0 - 8.0 [facility] Urine sediment bacteria coun t by microscopy (number/high power field)Ordered By: Amber Salena on 06-08-2024 Bacteria LM.HPF (Urine sed) [#/Area] 1 /[HPF] None Seen [facility] Urine specific gravity measu rementOrdered By: Amber Sarkarelpidio on 06-08-2024 Specific gravity (U) [Rel density] 1.010 1.002-1.030 [facility] Urobilinogen Ql (U)Ordered B y: Amber Sarkarfelicitasaura on 06-08-2024 Urine Urobilinogen Normal mg/dl Normal [facility] White blood cell (WBC) count Ordered By: Amber Salena on 06-08-2024 WBC (Bld) [#/Vol] 7.2 10*3/uL 4.4-11.0 [facility] White blood cell countOrdere d By: Amber Salena on 06-08-2024 Urine WBC 5-10 SEEN /hpf 0-5 [facility] Bedside Glucoseon 06-07-2024 FINGERSTICK GLU 217 mg/dL High 74-106 [facility] Comment on above: Result Comment: MERCEDES GEMENT OF PATIENT CARE PER NURSING PROTOCOL Performed By: #### L 501.080 ####[facility] [address] [place], [place], [id number] Echo Complete W/ Contraston 06-07-2024 Echo Complete W/ Contrast Normal [facility]: Areli Estevez on 06-07-2024 [facility] mg/dL High 74-106 [facility] Comment on above: MANAGEMENT OF PATIEN T CARE PER NURSING PROTOCOL Stress Reporton 06-07-2024 Stress Report Normal [facility] Stress Report Normal [facility] CNPTOUTREACHon 06-06-2024 CNPTOUTREACH Normal [facility] CNPNon 05-31-2024 CNPN Normal [facility] Absolute neutrophil countOrd ered By: Lars Dahl on 05-27-2024 Neutrophils (Bld) [#/Vol] 3.8 10*3/uL 2.0-7.7 [facility] BNP (brain natriuretic pepti de measurement)Ordered By: Lars Dahl on 05-27-2024 Natriuretic peptide B (Bld) [Mass/Vol] 97.6 pg/mL 0-100 [facility] BNP,B-Type NATRIURETIC PEPTI Vargas 05-27-2024 Natriuretic peptide B (Bld) [Mass/Vol] 97.6 pg/mL Normal 0-100 [facility] Comment on above: Performed By: #### L 501.9520, L100.0100, L501.5425, L503.6620, L500.2500 ####[facility] [address] [place], [address] Basic Metabolic Profile (BMP )on 05-27-2024 BUN/CRE 21.6 RATIO High 10-20 [facility] Comment on above: Order Comment: 1Y Performed By: #### L 501.9520, L100.0100, L501.5425, L503.6620, L500.2500 ####[facility] [address] [place], [address] CA,Total 8.7 mg/dL Normal 8.5-10.1 [facility] Comment on above: Order Comment: 1Y Performed By: #### L 501.9520, L100.0100, L501.5425, L503.6620, L500.2500 ####[facility] [address] [place], [address] Chloride [Moles/Vol] 108 mmol/L High 98-107 [facility] Comment on above: Order Comment: 1Y Performed By: #### L 501.9520, L100.0100, L501.5425, L503.6620, L500.2500 ####[facility] [address] [place], [address] CO2 [Moles/Vol] 27.0 mmol/L Normal 21.0-32.0 [facility] Comment on above: Order Comment: 1Y Performed By: #### L 501.9520, L100.0100, L501.5425, L503.6620, L500.2500 ####[facility] [address] [place], [address] Creatinine [Mass/Vol] 1.02 mg/dL Normal 0.55-1.02 [facility] Comment on above: Order Comment: 1Y Result Comment: The validity of the calculated GFR GFRAA in patients over70 years has not been determined. Clinical correlation isessential. Performed By: #### L 501.9520, L100.0100, L501.5425, L503.6620, L500.2500 ####[facility] [address] [place], [address] EST GFR - AA 67 mL/min Normal >60 [facility] Comment on above: Order Comment: 1Y Result Comment: Afri can [place] GFR Calc Performed By: #### L 501.9520, L100.0100, L501.5425, L503.6620, L500.2500 ####[facility] [address] [place], [address] GAP 4 Low 5-15 [facility] Comment on above: Order Comment: 1Y Performed By: #### L 501.9520, L100.0100, L501.5425, L503.6620, L500.2500 ####[facility] [address] [place], [address] GFR/1.73 sq M.predicted among non-blacks MDRD (S/P/Bld) [Vol rate/Area] 56 mL/min/{1.73_m2} Low >60 [facility] Comment on above: Order Comment: 1Y Result Comment: Non- GFR Calc Performed By: #### L 501.9520, L100.0100, L501.5425, L503.6620, L500.2500 ####[facility] [address] [place], [address] Glucose [Mass/Vol] 152 mg/dL High 74-106 [facility] Comment on above: Order Comment: 1Y Result Comment: Fast ing Glucose result greater than or equal to 126 mg/dLsuggests DIABETES MELLITUS per A.D.A. criteria. Performed By: #### L 501.9520, L100.0100, L501.5425, L503.6620, L500.2500 ####[facility] [address] [place], [address] Potassium [Moles/Vol] 3.8 mmol/L Normal 3.5-5.1 [facility] Comment on above: Order Comment: 1Y Performed By: #### L 501.9520, L100.0100, L501.5425, L503.6620, L500.2500 ####[facility] [address] [place], [address] Sodium [Moles/Vol] 139 mmol/L Normal 136-145 [facility] Comment on above: Order Comment: 1Y Performed By: #### L 501.9520, L100.0100, L501.5425, L503.6620, L500.2500 ####[facility] [address] [place], [address] Urea nitrogen [Mass/Vol] 22 mg/dL High 7-18 [facility] Comment on above: Order Comment: 1Y Performed By: #### L 501.9520, L100.0100, L501.5425, L503.6620, L500.2500 ####[facility] [address] [place], [address] Basophil percentageOrdered B y: Lars Dahl on 05-27-2024 Basophils/100 WBC (Bld) 0.5 % 0-1 [facility] Blood urea nitrogen (BUN)/cr eatinine ratioOrdered By: Lars Dahl on 05-27-2024 Urea nitrogen/Creatinine [Mass ratio] 21.6 mg/mg High - [facility] CBC W/Diff, Automatedon 05-18 Absolute Lymph 1.24 X10 3/uL Normal 0.83-4.51 [facility] Comment on above: Performed By: #### L 501.9520, L100.0100, L501.5425, L503.6620, L500.2500 ####[facility] [address] [place], [address] Absolute Neut 3.8 X10 3/uL Normal 2.0-7.7 [facility] Comment on above: Performed By: #### L 501.9520, L100.0100, L501.5425, L503.6620, L500.2500 ####[facility] [address] [place], [address] Basophils/100 WBC (Bld) 0.5 % Normal 0-1 [facility] Comment on above: Performed By: #### L 501.9520, L100.0100, L501.5425, L503.6620, L500.2500 ####[facility] [address] [place], [address] Eosinophils/100 WBC (Bld) 5.5 % High 0-5 [facility] Comment on above: Performed By: #### L 501.9520, L100.0100, L501.5425, L503.6620, L500.2500 ####[facility] [address] [place], [address] Erythrocyte distribution width (RBC) [Ratio] 12.9 % Normal 11.6-14.6 [facility] Comment on above: Performed By: #### L 501.9520, L100.0100, L501.5425, L503.6620, L500.2500 ####[facility] [address] [place], [address] Hematocrit (Bld) [Volume fraction] 37.2 % Normal 37-47 [facility] Comment on above: Performed By: #### L 501.9520, L100.0100, L501.5425, L503.6620, L500.2500 ####[facility] [address] [place], [address] Hemoglobin (Bld) [Mass/Vol] 12.2 g/dL Normal 12.0-15.0 [facility] Comment on above: Performed By: #### L 501.9520, L100.0100, L501.5425, L503.6620, L500.2500 ####[facility] [address] [place], [address] IG% 0.200 Normal 0.0-0.9 [facility] Comment on above: Result Comment: IG% - Immature Granulocytes (promyelocytes, myelocytes andmetamyelocytes) > 1% indicates that a LEFT SHIFT is Present. Performed By: #### L 501.9520, L100.0100, L501.5425, L503.6620, L500.2500 ####[facility] [address] [place], [address] Lymphocytes/100 WBC (Bld) 21.2 % Normal 19-41 [facility] Comment on above: Performed By: #### L 501.9520, L100.0100, L501.5425, L503.6620, L500.2500 ####[facility] [address] [place], [address] MCH (RBC) [Entitic mass] 29.0 pg Normal 27.0-32.0 [facility] Comment on above: Performed By: #### L 501.9520, L100.0100, L501.5425, L503.6620, L500.2500 ####[facility] [address] [place], [address] MCHC (RBC) [Mass/Vol] 32.8 g/dL Normal 32-36 [facility] Comment on above: Performed By: #### L 501.9520, L100.0100, L501.5425, L503.6620, L500.2500 ####[facility] [address] [place], [address] MCV (RBC) [Entitic vol] 88.4 fL Normal 81-99 [facility] Comment on above: Performed By: #### L 501.9520, L100.0100, L501.5425, L503.6620, L500.2500 ####[facility] [address] [place], [address] Monocytes/100 WBC (Bld) 8.2 % Normal 0-10 [facility] Comment on above: Performed By: #### L 501.9520, L100.0100, L501.5425, L503.6620, L500.2500 ####[facility] [address] [place], [address] Neutrophils/100 WBC (Bld) 64.4 % Normal 47-70 [facility] Comment on above: Performed By: #### L 501.9520, L100.0100, L501.5425, L503.6620, L500.2500 ####[facility] [address] [place], [address] Nucleated RBC (Bld) [#/Vol] 0 10*3/uL Normal 0-5 [facility] Comment on above: Performed By: #### L 501.9520, L100.0100, L501.5425, L503.6620, L500.2500 ####[facility] [address] [place], [address] Platelet mean volume (Bld) [Entitic vol] 12.6 fL High 6.2-12.0 [facility] Comment on above: Performed By: #### L 501.9520, L100.0100, L501.5425, L503.6620, L500.2500 ####[facility] [address] [place], [address] Platelets (Bld) [#/Vol] 185 10*3/uL Normal 150-450 [facility] Comment on above: Performed By: #### L 501.9520, L100.0100, L501.5425, L503.6620, L500.2500 ####[facility] [address] [place], [address] RBC (Bld) [#/Vol] 4.21 10*6/uL Normal 4.2-5.4 [facility] Comment on above: Performed By: #### L 501.9520, L100.0100, L501.5425, L503.6620, L500.2500 ####[facility] [address] [place], [address] RDW SD 41.8 fl Normal 35.1-43.9 [facility] Comment on above: Performed By: #### L 501.9520, L100.0100, L501.5425, L503.6620, L500.2500 ####[facility] [address] [place], [address] WBC (Bld) [#/Vol] 5.8 10*3/uL Normal 4.4-11.0 [facility] Comment on above: Performed By: #### L 501.9520, L100.0100, L501.5425, L503.6620, L500.2500 ####[facility] [address] [place], [address] Carbon dioxide measurementOr dered By: Lars Dahl on 05-27-2024 CO2 [Moles/Vol] 27.0 mmol/L 21.0-32.0 [facility] Chest PA and Lateralon 05-27 Chest PA and Lateral Normal [facility] Chloride measurementOrdered By: Lars Dahl on 05-27-2024 Chloride [Moles/Vol] 108 mmol/L High 98-107 [facility] Emergency Department Summary on 05-27-2024 Emergency Department Summary Normal [facility] Eosinophil percentageOrdered By: Lars Dahl on 05-27-2024 Eosinophils/100 WBC (Bld) 5.5 % High 0-5 [facility] Erythrocyte distribution wid th ratioOrdered By: Lars Dahl on 05-27-2024 Erythrocyte distribution width (RBC) [Ratio] 12.9 % 11.6-14.6 [facility] Erythrocyte distribution wid th standard deviationOrdered By: Lars Dahl on 05-27-2024 Erythrocyte distribution width (RBC) [Entitic vol] 41.8 fL 35.1-43.9 [facility] Estimated glomerular filtrat ion rate (GFR) AmericanOrdered By: Lars Dahl on 05-27-2024 Estimated GFR (MDRD) Amer 67 mL/min >60 [facility] Comment on above: GFR Calc Glomerular filtration rate ( GFR) estimationOrdered By: Lars Dahl on 05-27-2024 Estimated GFR (MDRD) Non-Af Amer 56 mL/min Low >60 [facility] Comment on above: Non- GFR Calc Glucose measurementOrdered B y: Lars Dahl on 05-27-2024 Glucose [Mass/Vol] 152 mg/dL High 74-106 [facility] Comment on above: Fasting Glucose resu lt greater than or equal to 126 mg/dL suggests DIABETES MELLITUS per A.D.A. criteria. Hematocrit Auto (Bld) [Volum e fraction]Ordered By: Lars Dahl on 05-27-2024 Hematocrit (Bld) [Volume fraction] 37.2 % 37-47 [facility] Hemoglobin measurementOrdere d By: Lars Dahl on 05-27-2024 Hemoglobin (Bld) [Mass/Vol] 12.2 g/dL 12.0-15.0 [facility] Immature granulocytes/100 WB C Auto (Bld)Ordered By: Lars Dahl on 05-27-2024 Immature granulocytes/100 WBC (Bld) 0.200 % 0.0-0.9 [facility] Comment on above: IG% - Immature Granu locytes (promyelocytes, myelocytes and metamyelocytes) > 1% indicates that a LEFT SHIFT is Present. L501.4020on 05-27-2024 TROPONIN-I HS 10 pg/mL Normal 3.0-54.0 [facility] Comment on above: Result Comment: Plea se Note: New Test Units and Gender Specific Reference Ranges. For more information see Policy Stat Procedure [place] High Sensitivity Troponin (TNIH) and attachments. Performed By: #### L 501.4020 ####[facility] [address] [facility] [place], [address] L501.5425on 05-27-2024 TROPONIN-I HS 9 pg/mL Normal 3.0-54.0 [facility] Comment on above: Order Comment: 1Y Result Comment: Plea se Note: New Test Units and Gender Specific Reference Ranges. For more information see Policy Stat Procedure [place] High Sensitivity Troponin (TNIH) and attachments. Performed By: #### L 501.9520, L100.0100, L501.5425, L503.6620, L500.2500 ####[facility] [address] [place], [address] Lymphocytes Auto (Unsp spec) [#/Vol]Ordered By: Lars Dahl on 05-27-2024 Lymphocytes (Bld) [#/Vol] 1.24 10*3/uL 0.83-4.51 [facility] Lymphocytes/100 WBC Auto (Un sp spec)Ordered By: Lars Dahl on 05-27-2024 Lymphocytes/100 WBC (Bld) 21.2 % 19-41 [facility] MCV (mean corpuscular volume ) determinationOrdered By: Lars Dahl on 05-27-2024 MCV (RBC) [Entitic vol] 88.4 fL 81-99 [facility] Mean corpuscular hemoglobin (MCH) determinationOrdered By: Lars Dahl on 05-27-2024 MCH (RBC) [Entitic mass] 29.0 pg 27.0-32.0 [facility] Mean corpuscular hemoglobin concentration (MCHC) determinationOrdered By: Lars Dahl on 05-27-2024 MCHC (RBC) [Mass/Vol] 32.8 g/dL 32-36 [facility] Mean platelet volume determi nationOrdered By: Lars Dahl on 05-27-2024 Platelet mean volume (Bld) [Entitic vol] 12.6 fL High 6.2-12.0 [facility] Monocyte percentageOrdered B y: Lars Dahl on 05-27-2024 Monocytes/100 WBC (Bld) 8.2 % 0-10 [facility] Neutrophil percentageOrdered By: Lars Dahl on 05-27-2024 Neutrophils/100 WBC (Bld) 64.4 % 47-70 [facility] Nucleated red blood cell per centageOrdered By: Lars Dahl on 05-27-2024 Nucleated RBC/100 WBC (Bld) [Ratio] 0 % 0-5 [facility] Platelet countOrdered By: Lazaro Dahl on 05-27-2024 Platelets (Bld) [#/Vol] 185 10*3/uL 150-450 [facility] Potassium measurementOrdered By: Lars Dahl on 05-27-2024 Potassium [Moles/Vol] 3.8 mmol/L 3.5-5.1 [facility] [facility] RBC Auto (Bld) [#/Vol]Ordere d By: Lars Dahl on 05-27-2024 RBC (Bld) [#/Vol] 4.21 10*6/uL 4.2-5.4 [facility] Serum anion gap measurementO rdered By: Lars Dahl on 05-27-2024 Anion gap [Moles/Vol] 4 mmol/L Low 5-15 [facility] Serum or plasma calcium zora urement (mass/volume)Ordered By: Lars Dahl on 05-27-2024 Calcium [Mass/Vol] 8.7 mg/dL 8.5-10.1 [facility] Serum or plasma creatinine m easurement (mass/volume)Ordered By: Lars Dahl on 05-27-2024 Creatinine [Mass/Vol] 1.02 mg/dL 0.55-1.02 [facility] Comment on above: The validity of the calculated GFR & GFRAA in patients over 70 years has not been determined. Clinical correlation is essential. Serum or plasma urea nitroge n measurement (mass/volume)Ordered By: Lars Dahl on 05-27-2024 Urea nitrogen [Mass/Vol] 22 mg/dL High 7-18 [facility] Sodium levelOrdered By: Jorge Dahl on 05-27-2024 Sodium [Moles/Vol] 139 mmol/L 136-145 [facility] TSH QnOrdered By: Lars judd on 05-27-2024 Thyroid Stimulating Hormone (TSH) 2.300 uIU/mL 0.358-3.740 [facility] Thyroid Stim Hormone (TSH)on 05-27-2024 TSH 2.300 uIU/mL Normal 0.358-3.740 [facility] Comment on above: Order Comment: 1Y Performed By: #### L 501.9520, L100.0100, L501.5425, L503.6620, L500.2500 ####[facility] [address] [place], [address] Troponin IOrdered By: Lars Dahl on 05-27-2024 Troponin I High Sensitivity 10 pg/mL 3.0-54.0 [facility] Comment on above: Please Note: New Mariajose t Units and Gender Specific Reference Ranges. For more information see Policy Stat Procedure [place] High Sensitivity Troponin (TNIH) and attachments. White blood cell (WBC) count Ordered By: Lars Dahl on 05-27-2024 WBC (Bld) [#/Vol] 5.8 10*3/uL 4.4-11.0 [facility] 12 Lead EKGon 05-25-2024 12 Lead EKG Normal [facility] Absolute neutrophil countOrd ered By: Reyna Monzon on 05-25-2024 Neutrophils (Bld) [#/Vol] 5.6 10*3/uL 2.0-7.7 [facility] Albumin to globulin ratioOrd ered By: Reyna Monzon on 05-25-2024 Albumin/Globulin [Mass ratio] 0.9 {ratio} 0.9-2.4 [facility] Basophil percentageOrdered B y: Reyna Monzon on 05-25-2024 Basophils/100 WBC (Bld) 0.4 % 0-1 [facility] Bilirubin, totalOrdered By: Reyna Monzon on 05-25-2024 Bilirubin [Mass/Vol] 1.20 mg/dL High 0.20-1.00 [facility] Comment on above: For patients on eltr ombopag therapy, use of Dimension [place] TBIL is not recommended. Blood urea nitrogen (BUN)/cr eatinine ratioOrdered By: Reynaantonella Monzon on 05-25-2024 Urea nitrogen/Creatinine [Mass ratio] 23.0 mg/mg High 10-20 [facility] CBC W/Diff, Automatedon 11-0 Absolute Lymph 0.73 X10 3/uL Low 0.83-4.51 [facility] Comment on above: Performed By: #### L 501.2450, L100.0100, L500.4050, L501.4020 ####[facility] [address] [place], [address] Absolute Neut 5.6 X10 3/uL Normal 2.0-7.7 [facility] Comment on above: Performed By: #### L 501.2450, L100.0100, L500.4050, L501.4020 ####[facility] [address] [place], [address] Basophils/100 WBC (Bld) 0.4 % Normal 0-1 [facility] Comment on above: Performed By: #### L 501.2450, L100.0100, L500.4050, L501.4020 ####[facility] [address] [place], [address] Eosinophils/100 WBC (Bld) 3.7 % Normal 0-5 [facility] Comment on above: Performed By: #### L 501.2450, L100.0100, L500.4050, L501.4020 ####[facility] [address] [place], [address] Erythrocyte distribution width (RBC) [Ratio] 12.7 % Normal 11.6-14.6 [facility] Comment on above: Performed By: #### L 501.2450, L100.0100, L500.4050, L501.4020 ####[facility] [address] [place], [address] Hematocrit (Bld) [Volume fraction] 40.0 % Normal 37-47 [facility] Comment on above: Performed By: #### L 501.2450, L100.0100, L500.4050, L501.4020 ####[facility] [address] [place], [address] Hemoglobin (Bld) [Mass/Vol] 13.0 g/dL Normal 12.0-15.0 [facility] Comment on above: Performed By: #### L 501.2450, L100.0100, L500.4050, L501.4020 ####[facility] [address] [place], [address] IG% 0.300 Normal 0.0-0.9 [facility] Comment on above: Result Comment: IG% - Immature Granulocytes (promyelocytes, myelocytes andmetamyelocytes) > 1% indicates that a LEFT SHIFT is Present. Performed By: #### L 501.2450, L100.0100, L500.4050, L501.4020 ####[facility] [address] [place], [address] Lymphocytes/100 WBC (Bld) 10.3 % Low 19-41 [facility] Comment on above: Performed By: #### L 501.2450, L100.0100, L500.4050, L501.4020 ####[facility] [address] [place], [address] MCH (RBC) [Entitic mass] 29.0 pg Normal 27.0-32.0 [facility] Comment on above: Performed By: #### L 501.2450, L100.0100, L500.4050, L501.4020 ####[facility] [address] [place], [address] MCHC (RBC) [Mass/Vol] 32.5 g/dL Normal 32-36 [facility] Comment on above: Performed By: #### L 501.2450, L100.0100, L500.4050, L501.4020 ####[facility] [address] [place], [address] MCV (RBC) [Entitic vol] 89.3 fL Normal 81-99 [facility] Comment on above: Performed By: #### L 501.2450, L100.0100, L500.4050, L501.4020 ####[facility] [address] [place], [address] Monocytes/100 WBC (Bld) 6.2 % Normal 0-10 [facility] Comment on above: Performed By: #### L 501.2450, L100.0100, L500.4050, L501.4020 ####[facility] [address] [place], [address] Neutrophils/100 WBC (Bld) 79.1 % High 47-70 [facility] Comment on above: Performed By: #### L 501.2450, L100.0100, L500.4050, L501.4020 ####[facility] [address] [place], [address] Nucleated RBC (Bld) [#/Vol] 0 10*3/uL Normal 0-5 [facility] Comment on above: Performed By: #### L 501.2450, L100.0100, L500.4050, L501.4020 ####[facility] [address] [place], [address] Platelet mean volume (Bld) [Entitic vol] 12.7 fL High 6.2-12.0 [facility] Comment on above: Performed By: #### L 501.2450, L100.0100, L500.4050, L501.4020 ####[facility] [address] [place], [address] Platelets (Bld) [#/Vol] 173 10*3/uL Normal 150-450 [facility] Comment on above: Performed By: #### L 501.2450, L100.0100, L500.4050, L501.4020 ####[facility] [address] [place], [address] RBC (Bld) [#/Vol] 4.48 10*6/uL Normal 4.2-5.4 [facility] Comment on above: Performed By: #### L 501.2450, L100.0100, L500.4050, L501.4020 ####[facility] [address] [place], [address] RDW SD 41.4 fl Normal 35.1-43.9 [facility] Comment on above: Performed By: #### L 501.2450, L100.0100, L500.4050, L501.4020 ####[facility] [address] [place], [address] WBC (Bld) [#/Vol] 7.1 10*3/uL Normal 4.4-11.0 [facility] Comment on above: Performed By: #### L 501.2450, L100.0100, L500.4050, L501.4020 ####[facility] [address] [place], [address] CNPNon 05-25-2024 CNPN Normal [facility] Carbon dioxide measurementOr dered By: Reyna Monzon on 05-25-2024 CO2 [Moles/Vol] 25.0 mmol/L 21.0-32.0 [facility] Chest PA and Lateralon 05-25 Chest PA and Lateral Normal [facility] Chloride measurementOrdered By: Reyna Monzon on 05-25-2024 Chloride [Moles/Vol] 103 mmol/L 98-107 [facility] Comprehensive Metabolic Prof ilon 05-25-2024 Albumin [Mass/Vol] 3.3 g/dL Normal 3.2-5.0 [facility] Comment on above: Order Comment: 'TROP ' Serial specimen #1, #2 or #3: 1 Performed By: #### L 501.2450, L100.0100, L500.4050, L501.4020 ####[facility] [address] [place], [address] Albumin/Globulin [Mass ratio] 0.9 {ratio} Normal 0.9-2.4 [facility] Comment on above: Order Comment: 'TROP ' Serial specimen #1, #2 or #3: 1 Performed By: #### L 501.2450, L100.0100, L500.4050, L501.4020 ####[facility] [address] [place], [address] ALK P 82 U/L Normal 45-117 [facility] Comment on above: Order Comment: 'TROP ' Serial specimen #1, #2 or #3: 1 Performed By: #### L 501.2450, L100.0100, L500.4050, L501.4020 ####[facility] [address] [place], [address] ALT [Catalytic activity/Vol] 20 U/L Normal 13-56 [facility] Comment on above: Order Comment: 'TROP ' Serial specimen #1, #2 or #3: 1 Performed By: #### L 501.2450, L100.0100, L500.4050, L501.4020 ####[facility] [address] [place], [address] AST [Catalytic activity/Vol] 15 U/L Normal 15-37 [facility] Comment on above: Order Comment: 'TROP ' Serial specimen #1, #2 or #3: 1 Performed By: #### L 501.2450, L100.0100, L500.4050, L501.4020 ####[facility] [address] [place], [address] Bilirubin [Mass/Vol] 1.20 mg/dL High 0.20-1.00 [facility] Comment on above: Order Comment: 'TROP ' Serial specimen #1, #2 or #3: 1 Result Comment: For patients on eltrombopag therapy, use of Dimension [place] TBIL is not recommended. Performed By: #### L 501.2450, L100.0100, L500.4050, L501.4020 ####[facility] [address] [place], [address] BUN/CRE 23.0 RATIO High 10-20 [facility] Comment on above: Order Comment: 'TROP ' Serial specimen #1, #2 or #3: 1 Performed By: #### L 501.2450, L100.0100, L500.4050, L501.4020 ####[facility] [address] [place], [address] CA,Total 9.1 mg/dL Normal 8.5-10.1 [facility] Comment on above: Order Comment: 'TROP ' Serial specimen #1, #2 or #3: 1 Performed By: #### L 501.2450, L100.0100, L500.4050, L501.4020 ####[facility] [address] [place], [address] Chloride [Moles/Vol] 103 mmol/L Normal 98-107 [facility] Comment on above: Order Comment: 'TROP ' Serial specimen #1, #2 or #3: 1 Performed By: #### L 501.2450, L100.0100, L500.4050, L501.4020 ####[facility] [address] [place], [address] CO2 [Moles/Vol] 25.0 mmol/L Normal 21.0-32.0 [facility] Comment on above: Order Comment: 'TROP ' Serial specimen #1, #2 or #3: 1 Performed By: #### L 501.2450, L100.0100, L500.4050, L501.4020 ####[facility] [address] [place], [address] Creatinine [Mass/Vol] 0.87 mg/dL Normal 0.55-1.02 [facility] Comment on above: Order Comment: 'TROP ' Serial specimen #1, #2 or #3: 1 Result Comment: The validity of the calculated GFR GFRAA in patients over70 years has not been determined. Clinical correlation isessential. Performed By: #### L 501.2450, L100.0100, L500.4050, L501.4020 ####[facility] [address] [place], [address] ECRCL 81.14 ml/min Normal [facility] Comment on above: Order Comment: 'TROP ' Serial specimen #1, #2 or #3: 1 Performed By: #### L 501.2450, L100.0100, L500.4050, L501.4020 ####[facility] [address] [place], [address] EST GFR - AA 81 mL/min Normal >60 [facility] Comment on above: Order Comment: 'TROP ' Serial specimen #1, #2 or #3: 1 Result Comment: Afri can [place] GFR Calc Performed By: #### L 501.2450, L100.0100, L500.4050, L501.4020 ####[facility] [address] [place], [address] GAP 8 Normal 5-15 [facility] Comment on above: Order Comment: 'TROP ' Serial specimen #1, #2 or #3: 1 Performed By: #### L 501.2450, L100.0100, L500.4050, L501.4020 ####[facility] [address] [place], [address] GFR/1.73 sq M.predicted among non-blacks MDRD (S/P/Bld) [Vol rate/Area] 67 mL/min/{1.73_m2} Normal >60 [facility] Comment on above: Order Comment: 'TROP ' Serial specimen #1, #2 or #3: 1 Result Comment: Non- GFR Calc Performed By: #### L 501.2450, L100.0100, L500.4050, L501.4020 ####[facility] [address] [place], [address] Globulin (S) [Mass/Vol] 3.6 g/dL Normal 2.2-4.2 [facility] Comment on above: Order Comment: 'TROP ' Serial specimen #1, #2 or #3: 1 Performed By: #### L 501.2450, L100.0100, L500.4050, L501.4020 ####[facility] [address] [place], [address] Glucose [Mass/Vol] 289 mg/dL High 74-106 [facility] Comment on above: Order Comment: 'TROP ' Serial specimen #1, #2 or #3: 1 Result Comment: Gluc ose result greater than or equal to 200 mg/dLsuggests DIABETES MELLITUS per A.D.A. criteria. Performed By: #### L 501.2450, L100.0100, L500.4050, L501.4020 ####[facility] [address] [place], [address] Potassium [Moles/Vol] 4.2 mmol/L Normal 3.5-5.1 [facility] Comment on above: Order Comment: 'TROP ' Serial specimen #1, #2 or #3: 1 Performed By: #### L 501.2450, L100.0100, L500.4050, L501.4020 ####[facility] [address] [place], [address] Sodium [Moles/Vol] 136 mmol/L Normal 136-145 [facility] Comment on above: Order Comment: 'TROP ' Serial specimen #1, #2 or #3: 1 Performed By: #### L 501.2450, L100.0100, L500.4050, L501.4020 ####[facility] [address] [place], [address] T PROT 6.9 g/dL Normal 6.4-8.2 [facility] Comment on above: Order Comment: 'TROP ' Serial specimen #1, #2 or #3: 1 Performed By: #### L 501.2450, L100.0100, L500.4050, L501.4020 ####[facility] [address] [place], [address] Urea nitrogen [Mass/Vol] 20 mg/dL High 7-18 [facility] Comment on above: Order Comment: 'TROP ' Serial specimen #1, #2 or #3: 1 Performed By: #### L 501.2450, L100.0100, L500.4050, L501.4020 ####[facility] [address] [place], [address] Emergency Department Summary on 05-25-2024 Emergency Department Summary Normal [facility] Eosinophil percentageOrdered By: Reyna Monzon on 05-25-2024 Eosinophils/100 WBC (Bld) 3.7 % 0-5 [facility] Erythrocyte distribution wid th ratioOrdered By: Reyna Monzon on 05-25-2024 Erythrocyte distribution width (RBC) [Ratio] 12.7 % 11.6-14.6 [facility] Erythrocyte distribution wid th standard deviationOrdered By: Reyna Monzon on 05-25-2024 Erythrocyte distribution width (RBC) [Entitic vol] 41.4 fL 35.1-43.9 [facility] Estimated glomerular filtrat ion rate (GFR) AmericanOrdered By: Reyna Monzon on 05-25-2024 Estimated GFR (MDRD) Amer 81 mL/min >60 [facility] Comment on above: GFR Calc Estimation of creatinine kimberly aranceOrdered By: Reyna Monzon on 05-25-2024 Estimated Creatinine Clearance Calc 81.14 ml/min [facility] Glomerular filtration rate ( GFR) estimationOrdered By: Reyna Monzon on 05-25-2024 Estimated GFR (MDRD) Non-Af Amer 67 mL/min >60 [facility] Comment on above: Non- GFR Calc Glucose measurementOrdered B y: Reyna Monzon on 05-25-2024 Glucose [Mass/Vol] 289 mg/dL High 74-106 [facility] Comment on above: Glucose result great er than or equal to 200 mg/dLsuggests DIABETES MELLITUS per A.D.A. criteria. Hematocrit Auto (Bld) [Volum e fraction]Ordered By: Reyna Monzon on 05-25-2024 Hematocrit (Bld) [Volume fraction] 40.0 % 37-47 [facility] Hemoglobin measurementOrdere d By: Reyna Monzon on 05-25-2024 Hemoglobin (Bld) [Mass/Vol] 13.0 g/dL 12.0-15.0 [facility] Immature granulocytes/100 WB C Auto (Bld)Ordered By: Reyna Monzon on 05-25-2024 Immature granulocytes/100 WBC (Bld) 0.300 % 0.0-0.9 [facility] Comment on above: IG% - Immature Granu locytes (promyelocytes, myelocytes and metamyelocytes) > 1% indicates that a LEFT SHIFT is Present. L501.4020on 05-25-2024 TROPONIN-I HS 13 pg/mL Normal 3.0-54.0 [facility] Comment on above: Order Comment: 'TROP ' Serial specimen #1, #2 or #3: 1 Result Comment: Plea se Note: New Test Units and Gender Specific Reference Ranges. For more information see Policy Stat Procedure [place] High Sensitivity Troponin (TNIH) and attachments. Performed By: #### L 501.2450, L100.0100, L500.4050, L501.4020 ####[facility] [address] [place], [address] Laboratory - Chemistry and C hemistry - challengeOrdered By: Reyna Monzon on 05-25-2024 AST [Catalytic activity/Vol] 15 U/L 15-37 [facility] Lipaseon 05-25-2024 Lipase [Catalytic activity/Vol] 15 U/L Normal 13-75 [facility] Comment on above: Order Comment: 'TROP ' Serial specimen #1, #2 or #3: 1 Result Comment: Plea se note:LIPASE revised reference range effective 22.New Lipase methodology. Expected to produce lower valuesthan the previous assay method.NEW Reference Range: 13 - 75 U/L Performed By: #### L 501.2450, L100.0100, L500.4050, L501.4020 ####[facility] [address] [place], [place], [address] Lipase measurementOrdered By : Reyna Monzon on 05-25-2024 Lipase [Catalytic activity/Vol] 15 U/L 13-75 [facility] Comment on above: Please note:LIPASE r evised reference range effective 22. New Lipase methodology. Expected to produce lower values than the previous assay method. NEW Reference Range: 13 - 75 U/L Lymphocytes Auto (Unsp spec) [#/Vol]Ordered By: Reyna Monzon on 05-25-2024 Lymphocytes (Bld) [#/Vol] 0.73 10*3/uL Low 0.83-4.51 [facility] Lymphocytes/100 WBC Auto (Un sp spec)Ordered By: Reyna Monzon on 05-25-2024 Lymphocytes/100 WBC (Bld) 10.3 % Low 19-41 [facility] MCV (mean corpuscular volume ) determinationOrdered By: Reyna Monzon on 05-25-2024 MCV (RBC) [Entitic vol] 89.3 fL 81-99 [facility] Mean corpuscular hemoglobin (MCH) determinationOrdered By: Reyna Monzon on 05-25-2024 MCH (RBC) [Entitic mass] 29.0 pg 27.0-32.0 [facility] Mean corpuscular hemoglobin concentration (MCHC) determinationOrdered By: Reyna Monzon on 05-25-2024 MCHC (RBC) [Mass/Vol] 32.5 g/dL 32-36 [facility] Mean platelet volume determi nationOrdered By: Reyna Monzon on 05-25-2024 Platelet mean volume (Bld) [Entitic vol] 12.7 fL High 6.2-12.0 [facility] Monocyte percentageOrdered B y: Reyna Monzon on 05-25-2024 Monocytes/100 WBC (Bld) 6.2 % 0-10 [facility] Neutrophil percentageOrdered By: Reyna Monzon on 05-25-2024 Neutrophils/100 WBC (Bld) 79.1 % High 47-70 [facility] Nucleated red blood cell per centageOrdered By: Reyna Monzon on 05-25-2024 Nucleated RBC/100 WBC (Bld) [Ratio] 0 % 0-5 [facility] Platelet countOrdered By: Elias Monzon on 05-25-2024 Platelets (Bld) [#/Vol] 173 10*3/uL 150-450 [facility] Potassium measurementOrdered By: Reyna Monzon on 05-25-2024 Potassium [Moles/Vol] 4.2 mmol/L 3.5-5.1 [facility] RBC Auto (Bld) [#/Vol]Ordere d By: Reyna Monzon on 05-25-2024 RBC (Bld) [#/Vol] 4.48 10*6/uL 4.2-5.4 [facility] Serum anion gap measurementO rdered By: Reyna Monzon on 05-25-2024 Anion gap [Moles/Vol] 8 mmol/L 5-15 [facility] Serum globulin measurementOr dered By: Reyna Monzon on 05-25-2024 Globulin (S) [Mass/Vol] 3.6 g/dL 2.2-4.2 [facility] Serum or plasma alanine ramírez otransferase (ALT) measurementOrdered By: Reyna Monzon on 05-25-2024 ALT [Catalytic activity/Vol] 20 U/L 13-56 [facility] Serum or plasma albumin zora urement (mass/volume)Ordered By: Reyna Monzon on 05-25-2024 Albumin [Mass/Vol] 3.3 g/dL 3.2-5.0 [facility] Serum or plasma alkaline dhiraj sphatase measurementOrdered By: Reyna Monzon on 05-25-2024 ALP [Catalytic activity/Vol] 82 U/L 45-117 [facility] Serum or plasma calcium zora urement (mass/volume)Ordered By: Reyna Monzon on 05-25-2024 Calcium [Mass/Vol] 9.1 mg/dL 8.5-10.1 [facility] Serum or plasma creatinine m easurement (mass/volume)Ordered By: Reyna Monzon on 05-25-2024 Creatinine [Mass/Vol] 0.87 mg/dL 0.55-1.02 [facility] Comment on above: The validity of the calculated GFR & GFRAA in patients over 70 years has not been determined. Clinical correlation is essential. Serum or plasma urea nitroge n measurement (mass/volume)Ordered By: Reyna Monzon on 05-25-2024 Urea nitrogen [Mass/Vol] 20 mg/dL High 7-18 [facility] Sodium levelOrdered By: Sammy Monzon on 05-25-2024 Sodium [Moles/Vol] 136 mmol/L 136-145 [facility] Total proteinOrdered By: Sultana Monzon on 05-25-2024 Protein [Mass/Vol] 6.9 g/dL 6.4-8.2 [facility] Troponin IOrdered By: Reyna Monzon on 05-25-2024 Troponin I High Sensitivity 13 pg/mL 3.0-54.0 [facility] Comment on above: Please Note: New Mariajose t Units and Gender Specific Reference Ranges. For more information see Policy Stat Procedure [place] High Sensitivity Troponin (TNIH) and attachments. White blood cell (WBC) count Ordered By: Reyna Monzon on 05-25-2024 WBC (Bld) [#/Vol] 7.1 10*3/uL 4.4-11.0 [facility] CNOVon 05-23-2024 CNOV Normal [facility] HEMOGLOBIN A1C (POC)on 05-23 HbA1c (Bld) [Mass fraction] 6.9 % Abnormal 4.3 - 5.6 % [facility] Comment on above: Location:[facility], [address], [place], [address] Point of care (POC) Hemoglobin A1c (HGBA1C) testing is intended to assess glucose control and provide a management tool for patients known to have diabetes and their healthcare providers. Target HGBA1C levels may depend on specific clinical circumstances. POC HGBA1C is not intended for use as a diagnostic or screening test; laboratory-based testing should be used for diagnostic purposes. The following information is supplemental and may not be applicable to specific diabetes management situations: The POC device woven label designer provides a normal range of 4.2% to 6.5% for the HGBA1C POC test. However, the [place] [employer] guidelines indicate that patients with HGBA1C in the range of 5.7% to 6.4% are at increased risk for development of diabetes and that intervention by lifestyle modification may be beneficial. A HGBA1C level greater than or equal to 6.5% is considered diagnostic of diabetes, pending confirmatory testing. Use of HGBA1C testing to evaluate glucose control may not be appropriate for patients with hemoglobin variants or other conditions (e.g. anemia) that alter red blood cell lifespan. Interpretation and review of laboratory results Abnormal [facility] CNPTOUTREACHon 05-22-2024 CNPTOUTREACH Normal [facility] 12 Lead EKGon 05-18-2024 12 Lead EKG Normal [facility] BNP,B-Type NATRIURETIC PEPTI Vargas 05-18-2024 Natriuretic peptide B (Bld) [Mass/Vol] 96.5 pg/mL Normal 0-100 [facility] Comment on above: Performed By: #### L 501.5425, L100.0100, L503.6620, L500.2500, L501.9520 ####[facility] [address] [place], [address] Basic Metabolic Profile (BMP )on 05-18-2024 BUN/CRE 19.3 RATIO Normal 10-20 [facility] Comment on above: Order Comment: 1Y Performed By: #### L 501.5425, L100.0100, L503.6620, L500.2500, L501.9520 ####[facility] [address] [place], [address] CA,Total 9.1 mg/dL Normal 8.5-10.1 [facility] Comment on above: Order Comment: 1Y Performed By: #### L 501.5425, L100.0100, L503.6620, L500.2500, L501.9520 ####[facility] [address] [place], [address] Chloride [Moles/Vol] 106 mmol/L Normal 98-107 [facility] Comment on above: Order Comment: 1Y Performed By: #### L 501.5425, L100.0100, L503.6620, L500.2500, L501.9520 ####[facility] [address] [place], [address] CO2 [Moles/Vol] 29.0 mmol/L Normal 21.0-32.0 [facility] Comment on above: Order Comment: 1Y Performed By: #### L 501.5425, L100.0100, L503.6620, L500.2500, L501.9520 ####[facility] [address] [place], [address] Creatinine [Mass/Vol] 1.09 mg/dL High 0.55-1.02 [facility] Comment on above: Order Comment: 1Y Result Comment: The validity of the calculated GFR GFRAA in patients over70 years has not been determined. Clinical correlation isessential. Performed By: #### L 501.5425, L100.0100, L503.6620, L500.2500, L501.9520 ####[facility] [address] [place], [address] ECRCL 53.02 ml/min Normal [facility] Comment on above: Order Comment: 1Y Performed By: #### L 501.5425, L100.0100, L503.6620, L500.2500, L501.9520 ####[facility] [address] [place], [address] EST GFR - AA 62 mL/min Normal >60 [facility] Comment on above: Order Comment: 1Y Result Comment: Afri can [place] GFR Calc Performed By: #### L 501.5425, L100.0100, L503.6620, L500.2500, L501.9520 ####[facility] [address] [place], [address] GAP 5 Normal 5-15 [facility] Comment on above: Order Comment: 1Y Performed By: #### L 501.5425, L100.0100, L503.6620, L500.2500, L501.9520 ####[facility] [address] [place], [address] GFR/1.73 sq M.predicted among non-blacks MDRD (S/P/Bld) [Vol rate/Area] 52 mL/min/{1.73_m2} Low >60 [facility] Comment on above: Order Comment: 1Y Result Comment: Non- GFR Calc Performed By: #### L 501.5425, L100.0100, L503.6620, L500.2500, L501.9520 ####[facility] [address] [place], [address] Glucose [Mass/Vol] 117 mg/dL High 74-106 [facility] Comment on above: Order Comment: 1Y Result Comment: Fast ing Glucose result from 100 to 125 mg/dLsuggests IMPAIRED HOMEOSTASIS per A.D.A. criteria. Performed By: #### L 501.5425, L100.0100, L503.6620, L500.2500, L501.9520 ####[facility] [address] [place], [address] Potassium [Moles/Vol] 4.1 mmol/L Normal 3.5-5.1 [facility] Comment on above: Order Comment: 1Y Performed By: #### L 501.5425, L100.0100, L503.6620, L500.2500, L501.9520 ####[facility] [address] [place], [address] Sodium [Moles/Vol] 140 mmol/L Normal 136-145 [facility] Comment on above: Order Comment: 1Y Performed By: #### L 501.5425, L100.0100, L503.6620, L500.2500, L501.9520 ####[facility] [address] [place], [address] Urea nitrogen [Mass/Vol] 21 mg/dL High 7-18 [facility] Comment on above: Order Comment: 1Y Performed By: #### L 501.5425, L100.0100, L503.6620, L500.2500, L501.9520 ####[facility] [address] [place], [address] Bedside Glucoseon 05-18-2024 FINGERSTICK GLU 139 mg/dL High 74-106 [facility] Comment on above: Result Comment: MERCEDES MARILYNN OF PATIENT CARE PER NURSING PROTOCOL Performed By: #### L 501.080 ####[facility] [address] [place], [address] CBC W/Diff, Automatedon Absolute Lymph 1.02 X10 3/uL Normal 0.83-4.51 [facility] Comment on above: Performed By: #### L 501.5425, L100.0100, L503.6620, L500.2500, L501.9520 ####[facility] [address] [place], [address] Absolute Neut 4.6 X10 3/uL Normal 2.0-7.7 [facility] Comment on above: Performed By: #### L 501.5425, L100.0100, L503.6620, L500.2500, L501.9520 ####[facility] [address] [place], [address] Basophils/100 WBC (Bld) 0.5 % Normal 0-1 [facility] Comment on above: Performed By: #### L 501.5425, L100.0100, L503.6620, L500.2500, L501.9520 ####[facility] [address] [place], [address] Eosinophils/100 WBC (Bld) 5.0 % Normal 0-5 [facility] Comment on above: Performed By: #### L 501.5425, L100.0100, L503.6620, L500.2500, L501.9520 ####[facility] [address] [place], [address] Erythrocyte distribution width (RBC) [Ratio] 12.7 % Normal 11.6-14.6 [facility] Comment on above: Performed By: #### L 501.5425, L100.0100, L503.6620, L500.2500, L501.9520 ####[facility] [address] [place], [address] Hematocrit (Bld) [Volume fraction] 39.1 % Normal 37-47 [facility] Comment on above: Performed By: #### L 501.5425, L100.0100, L503.6620, L500.2500, L501.9520 ####[facility] [address] [place], [address] Hemoglobin (Bld) [Mass/Vol] 12.8 g/dL Normal 12.0-15.0 [facility] Comment on above: Performed By: #### L 501.5425, L100.0100, L503.6620, L500.2500, L501.9520 ####[facility] [address] [place], [address] IG% 0.200 Normal 0.0-0.9 [facility] Comment on above: Result Comment: IG% - Immature Granulocytes (promyelocytes, myelocytes andmetamyelocytes) > 1% indicates that a LEFT SHIFT is Present. Performed By: #### L 501.5425, L100.0100, L503.6620, L500.2500, L501.9520 ####[facility] [address] [place], [address] Lymphocytes/100 WBC (Bld) 15.8 % Low 19-41 [facility] Comment on above: Performed By: #### L 501.5425, L100.0100, L503.6620, L500.2500, L501.9520 ####[facility] [address] [place], [address] MCH (RBC) [Entitic mass] 29.2 pg Normal 27.0-32.0 [facility] Comment on above: Performed By: #### L 501.5425, L100.0100, L503.6620, L500.2500, L501.9520 ####[facility] [address] [place], [address] MCHC (RBC) [Mass/Vol] 32.7 g/dL Normal 32-36 [facility] Comment on above: Performed By: #### L 501.5425, L100.0100, L503.6620, L500.2500, L501.9520 ####[facility] [address] [place], [address] MCV (RBC) [Entitic vol] 89.1 fL Normal 81-99 [facility] Comment on above: Performed By: #### L 501.5425, L100.0100, L503.6620, L500.2500, L501.9520 ####[facility] [address] [place], [address] Monocytes/100 WBC (Bld) 8.2 % Normal 0-10 [facility] Comment on above: Performed By: #### L 501.5425, L100.0100, L503.6620, L500.2500, L501.9520 ####[facility] [address] [place], [address] Neutrophils/100 WBC (Bld) 70.3 % High 47-70 [facility] Comment on above: Performed By: #### L 501.5425, L100.0100, L503.6620, L500.2500, L501.9520 ####[facility] [address] [place], [address] Nucleated RBC (Bld) [#/Vol] 0 10*3/uL Normal 0-5 [facility] Comment on above: Performed By: #### L 501.5425, L100.0100, L503.6620, L500.2500, L501.9520 ####[facility] [address] [place], [address] Platelet mean volume (Bld) [Entitic vol] 12.6 fL High 6.2-12.0 [facility] Comment on above: Performed By: #### L 501.5425, L100.0100, L503.6620, L500.2500, L501.9520 ####[facility] [address] [place], [address] Platelets (Bld) [#/Vol] 194 10*3/uL Normal 150-450 [facility] Comment on above: Performed By: #### L 501.5425, L100.0100, L503.6620, L500.2500, L501.9520 ####[facility] [address] [place], [address] RBC (Bld) [#/Vol] 4.39 10*6/uL Normal 4.2-5.4 [facility] Comment on above: Performed By: #### L 501.5425, L100.0100, L503.6620, L500.2500, L501.9520 ####[facility] [address] [place], [address] RDW SD 41.8 fl Normal 35.1-43.9 [facility] Comment on above: Performed By: #### L 501.5425, L100.0100, L503.6620, L500.2500, L501.9520 ####[facility] [address] [place], [address] WBC (Bld) [#/Vol] 6.5 10*3/uL Normal 4.4-11.0 [facility] Comment on above: Performed By: #### L 501.5425, L100.0100, L503.6620, L500.2500, L501.9520 ####[facility] [address] [place], [address] Chest 1 View (Portable)on Chest 1 View (Portable) Normal [facility] Emergency Department Summary on 05-18-2024 Emergency Department Summary Normal [facility] L501.4020on 05-18-2024 TROPONIN-I HS 9 pg/mL Normal 3.0-54.0 [facility] Comment on above: Result Comment: Jeffrey quintana Note: New Test Units and Gender Specific Reference Ranges. For more information see Policy Stat Procedure [place] High Sensitivity Troponin (TNIH) and attachments. Performed By: #### L 501.4020 ####[facility] [address] [place], [address] L501.5425on 05-18-2024 TROPONIN-I HS 8 pg/mL Normal 3.0-54.0 [facility] Comment on above: Order Comment: 1Y Result Comment: Jeffrey quintana Note: New Test Units and Gender Specific Reference Ranges. For more information see Policy Stat Procedure [place] High Sensitivity Troponin (TNIH) and attachments. Performed By: #### L 501.5425, L100.0100, L503.6620, L500.2500, L501.9520 ####[facility] [address] [place], [address] Thyroid Stim Hormone (TSH)on 05-18-2024 TSH 2.770 uIU/mL Normal 0.358-3.740 [facility] Comment on above: Order Comment: 1Y Performed By: #### L 501.5425, L100.0100, L503.6620, L500.2500, L501.9520 ####[facility] [address] [place], [address] CNPNon 05-10-2024 CNPN Normal [facility] CNOVon 05-07-2024 CNOV Normal [facility] 12 Lead EKGon 05-04-2024 12 Lead EKG Normal [facility] BNP,B-Type NATRIURETIC PEPTI Vargas 05-04-2024 Natriuretic peptide B (Bld) [Mass/Vol] 123.7 pg/mL High 0-100 [facility] Comment on above: Performed By: #### L 500.2500, L100.0100, L503.6620, L501.5425 ####[facility] [address] [place], [address] Basic Metabolic Profile (BMP )on 05-04-2024 BUN/CRE 24.4 RATIO High 10-20 [facility] Comment on above: Order Comment: 1Y Performed By: #### L 500.2500, L100.0100, L503.6620, L501.5425 ####[facility] [address] [place], [address] CA,Total 9.1 mg/dL Normal 8.5-10.1 [facility] Comment on above: Order Comment: 1Y Performed By: #### L 500.2500, L100.0100, L503.6620, L501.5425 ####[facility] [address] [place], [address] Chloride [Moles/Vol] 107 mmol/L Normal 98-107 [facility] Comment on above: Order Comment: 1Y Performed By: #### L 500.2500, L100.0100, L503.6620, L501.5425 ####[facility] [address] [place], [address] CO2 [Moles/Vol] 27.0 mmol/L Normal 21.0-32.0 [facility] Comment on above: Order Comment: 1Y Performed By: #### L 500.2500, L100.0100, L503.6620, L501.5425 ####[facility] [address] [place], [address] Creatinine [Mass/Vol] 0.94 mg/dL Normal 0.55-1.02 [facility] Comment on above: Order Comment: 1Y Result Comment: The validity of the calculated GFR GFRAA in patients over70 years has not been determined. Clinical correlation isessential. Performed By: #### L 500.2500, L100.0100, L503.6620, L501.5425 ####[facility] [address] [place], [address] EST GFR - AA 74 mL/min Normal >60 [facility] Comment on above: Order Comment: 1Y Result Comment: Afri can [place] GFR Calc Performed By: #### L 500.2500, L100.0100, L503.6620, L501.5425 ####[facility] [address] [place], [address] GAP 6 Normal 5-15 [facility] Comment on above: Order Comment: 1Y Performed By: #### L 500.2500, L100.0100, L503.6620, L501.5425 ####[facility] [address] [place], [address] GFR/1.73 sq M.predicted among non-blacks MDRD (S/P/Bld) [Vol rate/Area] 61 mL/min/{1.73_m2} Normal >60 [facility] Comment on above: Order Comment: 1Y Result Comment: Non- GFR Calc Performed By: #### L 500.2500, L100.0100, L503.6620, L501.5425 ####[facility] [address] [place], [address] Glucose [Mass/Vol] 160 mg/dL High 74-106 [facility] Comment on above: Order Comment: 1Y Result Comment: Fast ing Glucose result greater than or equal to 126 mg/dLsuggests DIABETES MELLITUS per A.D.A. criteria. Performed By: #### L 500.2500, L100.0100, L503.6620, L501.5425 ####[facility] [address] [place], [address] Potassium [Moles/Vol] 4.0 mmol/L Normal 3.5-5.1 [facility] Comment on above: Order Comment: 1Y Performed By: #### L 500.2500, L100.0100, L503.6620, L501.5425 ####[facility] [address] [place], [address] Sodium [Moles/Vol] 140 mmol/L Normal 136-145 [facility] Comment on above: Order Comment: 1Y Performed By: #### L 500.2500, L100.0100, L503.6620, L501.5425 ####[facility] [address] [place], [address] Urea nitrogen [Mass/Vol] 23 mg/dL High 7-18 [facility] Comment on above: Order Comment: 1Y Performed By: #### L 500.2500, L100.0100, L503.6620, L501.5425 ####[facility] [address] [place], [address] CBC W/Diff, Automatedon 04-17 Absolute Lymph 1.25 X10 3/uL Normal 0.83-4.51 [facility] Comment on above: Performed By: #### L 500.2500, L100.0100, L503.6620, L501.5425 ####[facility] [address] [place], [address] Absolute Neut 4.8 X10 3/uL Normal 2.0-7.7 [facility] Comment on above: Performed By: #### L 500.2500, L100.0100, L503.6620, L501.5425 ####[facility] [address] [place], [address] Basophils/100 WBC (Bld) 0.6 % Normal 0-1 [facility] Comment on above: Performed By: #### L 500.2500, L100.0100, L503.6620, L501.5425 ####[facility] [address] [place], [address] Eosinophils/100 WBC (Bld) 4.9 % Normal 0-5 [facility] Comment on above: Performed By: #### L 500.2500, L100.0100, L503.6620, L501.5425 ####[facility] [address] [place], [address] Erythrocyte distribution width (RBC) [Ratio] 12.7 % Normal 11.6-14.6 [facility] Comment on above: Performed By: #### L 500.2500, L100.0100, L503.6620, L501.5425 ####[facility] [address] [place], [address] Hematocrit (Bld) [Volume fraction] 38.7 % Normal 37-47 [facility] Comment on above: Performed By: #### L 500.2500, L100.0100, L503.6620, L501.5425 ####[facility] [address] [place], [address] Hemoglobin (Bld) [Mass/Vol] 12.9 g/dL Normal 12.0-15.0 [facility] Comment on above: Performed By: #### L 500.2500, L100.0100, L503.6620, L501.5425 ####[facility] [address] [place], [address] IG% 0.100 Normal 0.0-0.9 [facility] Comment on above: Result Comment: IG% - Immature Granulocytes (promyelocytes, myelocytes andmetamyelocytes) > 1% indicates that a LEFT SHIFT is Present. Performed By: #### L 500.2500, L100.0100, L503.6620, L501.5425 ####[facility] [address] [place], [address] Lymphocytes/100 WBC (Bld) 18.1 % Low 19-41 [facility] Comment on above: Performed By: #### L 500.2500, L100.0100, L503.6620, L501.5425 ####[facility] [address] [place], [address] MCH (RBC) [Entitic mass] 29.4 pg Normal 27.0-32.0 [facility] Comment on above: Performed By: #### L 500.2500, L100.0100, L503.6620, L501.5425 ####[facility] [address] [place], [address] MCHC (RBC) [Mass/Vol] 33.3 g/dL Normal 32-36 [facility] Comment on above: Performed By: #### L 500.2500, L100.0100, L503.6620, L501.5425 ####[facility] [address] [place], [address] MCV (RBC) [Entitic vol] 88.2 fL Normal 81-99 [facility] Comment on above: Performed By: #### L 500.2500, L100.0100, L503.6620, L501.5425 ####[facility] [address] [place], [address] Monocytes/100 WBC (Bld) 7.3 % Normal 0-10 [facility] Comment on above: Performed By: #### L 500.2500, L100.0100, L503.6620, L501.5425 ####[facility] [address] [place], [address] Neutrophils/100 WBC (Bld) 69.0 % Normal 47-70 [facility] Comment on above: Performed By: #### L 500.2500, L100.0100, L503.6620, L501.5425 ####[facility] [address] [place], [address] Nucleated RBC (Bld) [#/Vol] 0 10*3/uL Normal 0-5 [facility] Comment on above: Performed By: #### L 500.2500, L100.0100, L503.6620, L501.5425 ####[facility] [address] [place], [address] Platelet mean volume (Bld) [Entitic vol] 12.1 fL High 6.2-12.0 [facility] Comment on above: Performed By: #### L 500.2500, L100.0100, L503.6620, L501.5425 ####[facility] [address] [place], [address] Platelets (Bld) [#/Vol] 198 10*3/uL Normal 150-450 [facility] Comment on above: Performed By: #### L 500.2500, L100.0100, L503.6620, L501.5425 ####[facility] [address] [place], [address] RBC (Bld) [#/Vol] 4.39 10*6/uL Normal 4.2-5.4 [facility] Comment on above: Performed By: #### L 500.2500, L100.0100, L503.6620, L501.5425 ####[facility] [address] [place], [address] RDW SD 41.0 fl Normal 35.1-43.9 [facility] Comment on above: Performed By: #### L 500.2500, L100.0100, L503.6620, L501.5425 ####[facility] [address] [place], [address] WBC (Bld) [#/Vol] 6.9 10*3/uL Normal 4.4-11.0 [facility] Comment on above: Performed By: #### L 500.2500, L100.0100, L503.6620, L501.5425 ####[facility] [address] [place], [address] Chest 1 View (Portable)on Chest 1 View (Portable) Normal [facility] Emergency Department Summary on 05-04-2024 Emergency Department Summary Normal [facility] L501.5425on 05-04-2024 TROPONIN-I HS 10 pg/mL Normal 3.0-54.0 [facility] Comment on above: Order Comment: 1Y Result Comment: Jeffrey quintana Note: New Test Units and Gender Specific Reference Ranges. For more information see Policy Stat Procedure [place] High Sensitivity Troponin (TNIH) and attachments. Performed By: #### L 500.2500, L100.0100, L503.6620, L501.5425 ####[facility] [address] [place], [address] CNPTOUTREACHon 04-19-2024 CNPTOUTREACH Normal [facility] CNOVon 04-18-2024 CNOV Normal [facility] COVID AND INFLUENZA A/B AND RSV PCR, ROUTINEon 04-18-2024 SARS-CoV-2 (COVID-19) RNA RAYMOND+probe Ql (Unsp spec) SARS-COV-2 (AGENT OF COVID-19) RNA: Not detected INFLUENZA A RNA: Not detected INFLUENZA B RNA: Not detected RESPIRATORY SYNCYTIAL VIRUS (RSV) RNA: Not detected Normal [facility] Comment on above: Performed By: #### C VFLRS ####[facility] LABCLIA [id number] [place] [address] [place] XR CHEST 2V FRONTAL/LATon XR CHEST 2V FRONTAL/LAT Normal C [facility] XR Chest PA and Lateralon IMPRESSION: No acute radiographic abnormality. 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: EVIE Transcribe Date/Time: Apr 18 2024 10:00A Dictated by : STEVEN JOHNSON MD This examination was interpreted and the report reviewed and electronically signed by: STEVEN JOHNSON MD on Apr 18 2024 10:01AM [facility] DIVISION OF RADIOLOGY * * *Final Report* * * DATE OF EXAM: Apr 18 2024 9:59AM WOX 5291 - XR CHEST 2V FRONTAL/LAT / PROCEDURE REASON: multiple diagnoses * * * * Physician Interpretation * * * * EXAMINATION: CHEST RADIOGRAPH (2 VIEW FRONTAL & LATERAL) CLINICAL HISTORY: Acute cough URI, acute MQ: XC2_6 EXAM DATE/TIME: 04/18/2024 9:59 AM COMPARISON: Chest x-ray dated 12/16/2021 RESULT: Lines, tubes, and devices: None. Lungs and pleura: No consolidation. No lung mass. No pleural effusion. No pneumothorax. Cardiomediastinal silhouette: Stable cardiomediastinal silhouette. Bones and soft tissues: Degenerative changes are present within the thoracic spine. DIVISION OF RADIOLOGY Provider, Sumit Arreaga - 04/18/2024 * * *Final Report* * * DATE OF EXAM: Apr 18 2024 9:59AM WOX 5291 - XR CHEST 2V FRONTAL/LAT / PROCEDURE REASON: multiple diagnoses * * * * Physician Interpretation * * * * EXAMINATION: CHEST RADIOGRAPH (2 VIEW FRONTAL & LATERAL) CLINICAL HISTORY: Acute cough URI, acute MQ: XC2_6 EXAM DATE/TIME: 04/18/2024 9:59 AM COMPARISON: Chest x-ray dated 12/16/2021 RESULT: Lines, tubes, and devices: None. Lungs and pleura: No consolidation. No lung mass. No pleural effusion. No pneumothorax. Cardiomediastinal silhouette: Stable cardiomediastinal silhouette. Bones and soft tissues: Degenerative changes are present within the thoracic spine. IMPRESSION IMPRESSION: No acute radiographic abnormality. 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 Transcribe Date/Time: Apr 18 2024 10:00A Dictated by : STEVEN JOHNSON MD This examination was interpreted and the report reviewed and electronically signed by: STEVEN JOHNSON MD on Apr 18 2024 10:01AM [facility] Radiology Study observation (narrative) Jeremias zapata [employer] XR Chest PA and LateralOrder ed By: [facility] Provider on 04-18-2024 [facility] CNCNPATEDon 04-09-2024 CNCNPATED Normal [facility] CNPTOUTREACHon 04-04-2024 CNPTOUTREACH Normal [facility] CNOVon 03-30-2024 CNOV Normal [facility] NITRIC OXIDE, EXHALEDon 03-18 Zora Cortes RPF T 03/30/2024 1:40 PM RESPIRATORY THERAPY ORAL EXHALED NITRIC OXIDE SERVICE DATE: 03/30/2024 SERVICE TIME: 1:40 PM Oral Exhaled Nitric Oxide measurement: 25.0 (ppb) Normal: Adult <25 ppb, pediatric (<12 years) <20 ppb High Normal / Increased: Adult 25-50 ppb, pediatric (<12 years) 20-35 ppb Moderately raised exhaled Nitric Oxide may indicate underlying inflammation, but note that: Cold and influenza can raise exhaled Nitric Oxide and some patients have higher baseline exhaled Nitric Oxide levels than others. High: Adult >50 ppb, pediatric (<12 years) >35 ppb Indicative of ongoing eosinophilic inflammation. Symptomatic patient likely to respond to steroids. Possible causes (if already on steroids): Poor compliance, recent allergen exposure, steroid dose inadequate, and steroid resistance. Note that not all patients with high exhaled nitric oxide levels display symptoms. Oral Exhaled Nitric Oxide measurement (Previous Encounters) Test Date Oral Exhaled Nitric Oxide (ppb) 03/30/2024 25.0 06/23/2023 16.0 04/30/2021 45.0 (A) 02/23/2019 24.0 04/18/2017 56.0 (A) NAME: JAI Matthew PATIENT NAME: Attila Kidd DATE: March 30, 2024 TIME: 1:40 PM [facility] SCRN MAMM (CAD)W/MINAL BILATo n 03-23-2024 SCRN MAMM (CAD)W/MINAL BILAT Normal [facility] CNPNon 03-22-2024 CNPN Normal [facility] CNPNon 03-15-2024 CNPN Normal [facility] CNPTOUTREACHon 03-14-2024 CNPTOUTREACH Normal [facility] CNPNon 03-12-2024 CNPN Normal [facility] CNOVon 03-07-2024 CNOV Normal [facility] CNPNon 03-07-2024 CNPN Normal [facility] CNPNon 03-06-2024 CNPN Normal [facility] CNPNon 03-05-2024 CNPN Normal [facility] 12 Lead EKGon 03-02-2024 12 Lead EKG Normal [facility] Basic Metabolic Profile (BMP )on 03-02-2024 BUN/CRE 23.3 RATIO High 05-06 [facility] Comment on above: Order Comment: 'TROP ' Serial specimen #1, #2 or #3: 1 Performed By: #### L 100.0100, L500.2500, L501.4020 ####[facility] [id number] [place], [address] CA,Total 9.0 mg/dL Normal 8.5-10.1 [facility] Comment on above: Order Comment: 'TROP ' Serial specimen #1, #2 or #3: 1 Performed By: #### L 100.0100, L500.2500, L501.4020 ####[facility] [address] [place], [address] Chloride [Moles/Vol] 104 mmol/L Normal 98-107 [facility] Comment on above: Order Comment: 'TROP ' Serial specimen #1, #2 or #3: 1 Performed By: #### L 100.0100, L500.2500, L501.4020 ####[facility] [address] [place], [address] CO2 [Moles/Vol] 30.0 mmol/L Normal 21.0-32.0 [facility] Comment on above: Order Comment: 'TROP ' Serial specimen #1, #2 or #3: 1 Performed By: #### L 100.0100, L500.2500, L501.4020 ####[facility] [address] [place], [address] Creatinine [Mass/Vol] 0.99 mg/dL Normal 0.55-1.02 [facility] Comment on above: Order Comment: 'TROP ' Serial specimen #1, #2 or #3: 1 Result Comment: The validity of the calculated GFR GFRAA in patients over70 years has not been determined. Clinical correlation isessential. Performed By: #### L 100.0100, L500.2500, L501.4020 ####[facility] [address] [place], [address] EST GFR - AA 70 mL/min Normal >60 [facility] Comment on above: Order Comment: 'TROP ' Serial specimen #1, #2 or #3: 1 Result Comment: Afri can [place] GFR Calc Performed By: #### L 100.0100, L500.2500, L501.4020 ####[facility] [address] [place], [address] GAP 5 Normal 5-15 [facility] Comment on above: Order Comment: 'TROP ' Serial specimen #1, #2 or #3: 1 Performed By: #### L 100.0100, L500.2500, L501.4020 ####[facility] [address] [place], [address] GFR/1.73 sq M.predicted among non-blacks MDRD (S/P/Bld) [Vol rate/Area] 58 mL/min/{1.73_m2} Low >60 [facility] Comment on above: Order Comment: 'TROP ' Serial specimen #1, #2 or #3: 1 Result Comment: Non- GFR Calc Performed By: #### L 100.0100, L500.2500, L501.4020 ####[facility] [address] [place], [address] Glucose [Mass/Vol] 187 mg/dL High 74-106 [facility] Comment on above: Order Comment: 'TROP ' Serial specimen #1, #2 or #3: 1 Result Comment: Fast ing Glucose result greater than or equal to 126 mg/dLsuggests DIABETES MELLITUS per A.D.A. criteria. Performed By: #### L 100.0100, L500.2500, L501.4020 ####[facility] [address] [place], [address] Potassium [Moles/Vol] 3.9 mmol/L Normal 3.5-5.1 [facility] Comment on above: Order Comment: 'TROP ' Serial specimen #1, #2 or #3: 1 Performed By: #### L 100.0100, L500.2500, L501.4020 ####[facility] [address] [place], [address] Sodium [Moles/Vol] 139 mmol/L Normal 136-145 [facility] Comment on above: Order Comment: 'TROP ' Serial specimen #1, #2 or #3: 1 Performed By: #### L 100.0100, L500.2500, L501.4020 ####[facility] [address] [place], [address] Urea nitrogen [Mass/Vol] 23 mg/dL High 7-18 [facility] Comment on above: Order Comment: 'TROP ' Serial specimen #1, #2 or #3: 1 Performed By: #### L 100.0100, L500.2500, L501.4020 ####[facility] [address] [place], [address] Bedside Glucoseon 03-02-2024 FINGERSTICK GLU 219 mg/dL High 74-106 [facility] Comment on above: Result Comment: MERCEDES GEMENT OF PATIENT CARE PER NURSING PROTOCOL Performed By: #### L 501.080 ####[facility] [address] [place], [address] FINGERSTICK GLU 186 mg/dL High 74-106 [facility] Comment on above: Result Comment: MERCEDES GEMENT OF PATIENT CARE PER NURSING PROTOCOL Performed By: #### L 501.080 ####[facility] [address] [place], [address] CBC W/Diff, Automatedon 02-15 Absolute Lymph 0.94 X10 3/uL Normal 0.83-4.51 [facility] Comment on above: Performed By: #### L 100.0100, L500.2500, L501.4020 ####[facility] [address] [place], [address] Absolute Neut 3.4 X10 3/uL Normal 2.0-7.7 [facility] Comment on above: Performed By: #### L 100.0100, L500.2500, L501.4020 ####[facility] [address] [place], [address] Basophils/100 WBC (Bld) 0.6 % Normal 0-1 [facility] Comment on above: Performed By: #### L 100.0100, L500.2500, L501.4020 ####[facility] [address] [place], [address] Eosinophils/100 WBC (Bld) 6.9 % High 0-5 [facility] Comment on above: Performed By: #### L 100.0100, L500.2500, L501.4020 ####[facility] [address] [place], [address] Erythrocyte distribution width (RBC) [Ratio] 12.3 % Normal 11.6-14.6 [facility] Comment on above: Performed By: #### L 100.0100, L500.2500, L501.4020 ####[facility] [address] [place], [address] Hematocrit (Bld) [Volume fraction] 38.2 % Normal 37-47 [facility] Comment on above: Performed By: #### L 100.0100, L500.2500, L501.4020 ####[facility] [address] [place], [address] Hemoglobin (Bld) [Mass/Vol] 12.5 g/dL Normal 12.0-15.0 [facility] Comment on above: Performed By: #### L 100.0100, L500.2500, L501.4020 ####[facility] [address] [place], [address] IG% 0.200 Normal 0.0-0.9 [facility] Comment on above: Result Comment: IG% - Immature Granulocytes (promyelocytes, myelocytes andmetamyelocytes) > 1% indicates that a LEFT SHIFT is Present. Performed By: #### L 100.0100, L500.2500, L501.4020 ####[facility] [address] [place], [address] Lymphocytes/100 WBC (Bld) 18.0 % Low 19-41 [facility] Comment on above: Performed By: #### L 100.0100, L500.2500, L501.4020 ####[facility] [address] [place], [address] MCH (RBC) [Entitic mass] 29.4 pg Normal 27.0-32.0 [facility] Comment on above: Performed By: #### L 100.0100, L500.2500, L501.4020 ####[facility] [address] [place], [address] MCHC (RBC) [Mass/Vol] 32.7 g/dL Normal 32-36 [facility] Comment on above: Performed By: #### L 100.0100, L500.2500, L501.4020 ####[facility] [address] [place], [address] MCV (RBC) [Entitic vol] 89.9 fL Normal 81-99 [facility] Comment on above: Performed By: #### L 100.0100, L500.2500, L501.4020 ####[facility] [address] [place], [address] Monocytes/100 WBC (Bld) 9.8 % Normal 0-10 [facility] Comment on above: Performed By: #### L 100.0100, L500.2500, L501.4020 ####[facility] [address] [place], [address] Neutrophils/100 WBC (Bld) 64.5 % Normal 47-70 [facility] Comment on above: Performed By: #### L 100.0100, L500.2500, L501.4020 ####[facility] [address] [place], [address] Nucleated RBC (Bld) [#/Vol] 0 10*3/uL Normal 0-5 [facility] Comment on above: Performed By: #### L 100.0100, L500.2500, L501.4020 ####[facility] [address] [place], [address] Platelet mean volume (Bld) [Entitic vol] 12.2 fL High 6.2-12.0 [facility] Comment on above: Performed By: #### L 100.0100, L500.2500, L501.4020 ####[facility] [address] [place], [address] Platelets (Bld) [#/Vol] 207 10*3/uL Normal 150-450 [facility] Comment on above: Performed By: #### L 100.0100, L500.2500, L501.4020 ####[facility] [address] [place], [address] RBC (Bld) [#/Vol] 4.25 10*6/uL Normal 4.2-5.4 [facility] Comment on above: Performed By: #### L 100.0100, L500.2500, L501.4020 ####[facility] [address] [place], [address] RDW SD 40.2 fl Normal 35.1-43.9 [facility] Comment on above: Performed By: #### L 100.0100, L500.2500, L501.4020 ####[facility] [address] [place], [address] WBC (Bld) [#/Vol] 5.2 10*3/uL Normal 4.4-11.0 [facility] Comment on above: Performed By: #### L 100.0100, L500.2500, L501.4020 ####[facility] [address] [place], [address] Chest 1 View (Portable)on Chest 1 View (Portable) Normal [facility] Emergency Department Summary on 03-02-2024 Emergency Department Summary Normal [facility] L501.4020on 03-02-2024 TROPONIN-I HS 10 pg/mL Normal 3.0-54.0 [facility] Comment on above: Order Comment: 'TROP ' Serial specimen #1, #2 or #3: 1 Result Comment: Jeffrey quintana Note: New Test Units and Gender Specific Reference Ranges. For more information see Policy Stat Procedure [place] High Sensitivity Troponin (TNIH) and attachments. Performed By: #### L 100.0100, L500.2500, L501.4020 ####[facility] [address] [place], [address] CNPNon 02-20-2024 CNPN Normal [facility] CNOVon 02-15-2024 CNOV Normal [facility] CNOVon 02-13-2024 CNOV Normal [facility] Bedside Glucoseon 02-07-2024 FINGERSTICK GLU 181 mg/dL High 74-106 [facility] Comment on above: Result Comment: MERCEDES SUBRAMANIAN OF PATIENT CARE PER NURSING PROTOCOL Performed By: #### L 501.080 ####[facility] [address] [place], [address] 12 Lead EKGon 02-06-2024 12 Lead EKG Normal [facility] Basic Metabolic Profile (BMP )on 02-06-2024 BUN/CRE 26.5 RATIO High 10-20 [facility] Comment on above: Performed By: #### L 500.2500, L100.0100 ####[facility] [address] [place], [address] CA,Total 9.1 mg/dL Normal 8.5-10.1 [facility] Comment on above: Performed By: #### L 500.2500, L100.0100 ####[facility] [address] [place], [address] Chloride [Moles/Vol] 103 mmol/L Normal 98-107 [facility] Comment on above: Performed By: #### L 500.2500, L100.0100 ####[facility] [address] [place], [address] CO2 [Moles/Vol] 27.0 mmol/L Normal 21.0-32.0 [facility] Comment on above: Performed By: #### L 500.2500, L100.0100 ####[facility] [address] [place], [address] Creatinine [Mass/Vol] 0.79 mg/dL Normal 0.55-1.02 [facility] Comment on above: Result Comment: The validity of the calculated GFR GFRAA in patients over70 years has not been determined. Clinical correlation isessential. Performed By: #### L 500.2500, L100.0100 ####[facility] [address] [place], [address] ECRCL 89.96 ml/min Normal [facility] Comment on above: Performed By: #### L 500.2500, L100.0100 ####[facility] [address] [place], [address] EST GFR - AA 90 mL/min Normal >60 [facility] Comment on above: Result Comment: Afri can [place] GFR Calc Performed By: #### L 500.2500, L100.0100 ####[facility] [address] [place], [address] GAP 7 Normal 5-15 [facility] Comment on above: Performed By: #### L 500.2500, L100.0100 ####[facility] [address] [place], [address] GFR/1.73 sq M.predicted among non-blacks MDRD (S/P/Bld) [Vol rate/Area] 75 mL/min/{1.73_m2} Normal >60 [facility] Comment on above: Result Comment: Non- GFR Calc Performed By: #### L 500.2500, L100.0100 ####[facility] [address] [place], [address] Glucose [Mass/Vol] 219 mg/dL High 74-106 [facility] Comment on above: Result Comment: Gluc ose result greater than or equal to 200 mg/dLsuggests DIABETES MELLITUS per A.D.A. criteria. Performed By: #### L 500.2500, L100.0100 ####[facility] [address] [place], [address] Potassium [Moles/Vol] 3.9 mmol/L Normal 3.5-5.1 [facility] Comment on above: Performed By: #### L 500.2500, L100.0100 ####[facility] [address] [place], [address] Sodium [Moles/Vol] 137 mmol/L Normal 136-145 [facility] Comment on above: Performed By: #### L 500.2500, L100.0100 ####[facility] [address] [place], [address] Urea nitrogen [Mass/Vol] 21 mg/dL High 7-18 [facility] Comment on above: Performed By: #### L 500.2500, L100.0100 ####[facility] [address] [place], [address] CBC W/Diff, Automatedon 07-2 -2023 Absolute Lymph 0.90 X10 3/uL Normal 0.83-4.51 [facility] Comment on above: Performed By: #### L 500.2500, L100.0100 ####[facility] [address] [place], [address] Absolute Neut 4.8 X10 3/uL Normal 2.0-7.7 [facility] Comment on above: Performed By: #### L 500.2500, L100.0100 ####[facility] [address] [place], [address] Basophils/100 WBC (Bld) 0.5 % Normal 0-1 [facility] Comment on above: Performed By: #### L 500.2500, L100.0100 ####[facility] [address] [place], [address] Eosinophils/100 WBC (Bld) 4.0 % Normal 0-5 [facility] Comment on above: Performed By: #### L 500.2500, L100.0100 ####[facility] [address] [place], [address] Erythrocyte distribution width (RBC) [Ratio] 12.1 % Normal 11.6-14.6 [facility] Comment on above: Performed By: #### L 500.2500, L100.0100 ####[facility] [address] [place], [address] Hematocrit (Bld) [Volume fraction] 38.8 % Normal 37-47 [facility] Comment on above: Performed By: #### L 500.2500, L100.0100 ####[facility] [address] [place], [address] Hemoglobin (Bld) [Mass/Vol] 12.7 g/dL Normal 12.0-15.0 [facility] Comment on above: Performed By: #### L 500.2500, L100.0100 ####[facility] [address] [place], [address] IG% 0.200 Normal 0.0-0.9 [facility] Comment on above: Result Comment: IG% - Immature Granulocytes (promyelocytes, myelocytes andmetamyelocytes) > 1% indicates that a LEFT SHIFT is Present. Performed By: #### L 500.2500, L100.0100 ####[facility] [address] [place], [address] Lymphocytes/100 WBC (Bld) 13.7 % Low 19-41 [facility] Comment on above: Performed By: #### L 500.2500, L100.0100 ####[facility] [address] [place], [address] MCH (RBC) [Entitic mass] 29.2 pg Normal 27.0-32.0 [facility] Comment on above: Performed By: #### L 500.2500, L100.0100 ####[facility] [address] [place], [address] MCHC (RBC) [Mass/Vol] 32.7 g/dL Normal 32-36 [facility] Comment on above: Performed By: #### L 500.2500, L100.0100 ####[facility] [address] [place], [address] MCV (RBC) [Entitic vol] 89.2 fL Normal 81-99 [facility] Comment on above: Performed By: #### L 500.2500, L100.0100 ####[facility] [address] [place], [address] Monocytes/100 WBC (Bld) 8.2 % Normal 0-10 [facility] Comment on above: Performed By: #### L 500.2500, L100.0100 ####[facility] [address] [place], [address] Neutrophils/100 WBC (Bld) 73.4 % High 47-70 [facility] Comment on above: Performed By: #### L 500.2500, L100.0100 ####[facility] [address] [place], [address] Nucleated RBC (Bld) [#/Vol] 0 10*3/uL Normal 0-5 [facility] Comment on above: Performed By: #### L 500.2500, L100.0100 ####[facility] [address] [place], [address] Platelet mean volume (Bld) [Entitic vol] 12.4 fL High 6.2-12.0 [facility] Comment on above: Performed By: #### L 500.2500, L100.0100 ####[facility] [address] [place], [address] Platelets (Bld) [#/Vol] 189 10*3/uL Normal 150-450 [facility] Comment on above: Performed By: #### L 500.2500, L100.0100 ####[facility] [address] [place], [address] RBC (Bld) [#/Vol] 4.35 10*6/uL Normal 4.2-5.4 [facility] Comment on above: Performed By: #### L 500.2500, L100.0100 ####[facility] [address] [place], [address] RDW SD 39.5 fl Normal 35.1-43.9 [facility] Comment on above: Performed By: #### L 500.2500, L100.0100 ####[facility] [address] [place], [address] WBC (Bld) [#/Vol] 6.6 10*3/uL Normal 4.4-11.0 [facility] Comment on above: Performed By: #### L 500.2500, L100.0100 ####[facility] [address] [place], [address] Emergency Department Summary on 02-06-2024 Emergency Department Summary Normal [facility] 25(OH)D3 Rebecca 2023 25-hydroxyvitamin D3 [Mass/Vol] 71.5 ng/mL Normal 31.0-80.0 [facility] Comment on above: Order Comment: Speci men Type: BLOOD SPECIMENOrdering Facility: [facility] Address: [address] [place] [address] Result Comment: Clas sification of 25 [place] Vitamin D status:Deficiency/Insufficiency: < or = 30 ng/ml.Sufficiency/Optimal Levels: 31-80 ng/mLToxicity: > 100 ng/mL.Test performed by chemiluminescent immunoassay. Performed By: #### 1 989-3 ####[facility] LABCLIA [id number] [facility] [place] [address] [place] CBC W Auto Differential pane l (Bld)on 01-27-2024 Basophils (Bld) [#/Vol] 10*3/uL Normal <0.11 [facility] Comment on above: Order Comment: Speci men Type: BLOOD SPECIMENOrdering Facility: [facility] Address: [address] [place] [address] Performed By: #### 5 7021-8 ####[facility]UT[facility]CL[facility] [id number] [place] [address] [place] [facility] Basophils/100 WBC (Bld) 0.4 % Normal [facility] Comment on above: Order Comment: Speci men Type: BLOOD SPECIMENOrdering Facility: [facility] Address: [address] [place] [address] Performed By: #### 5 7021-8 ####[facility] MILLWNCLIA [id number] [address] STATES OF [facility] Differential cell count method Nom (Bld) Auto Normal [facility] Comment on above: Order Comment: Speci men Type: BLOOD SPECIMENOrdering Facility: [facility] Address: [address] [place] [address] Performed By: #### 5 7021-8 ####[facility] INSTITUTENCLIA [id number] [place] [address] [place] Eosinophils (Bld) [#/Vol] 0.26 10*3/uL Normal <0.46 [facility] Comment on above: Order Comment: Speci men Type: BLOOD SPECIMENOrdering Facility: [facility] Address: [address] [place] [address] Performed By: #### 5 7021-8 ####[facility] INSTITUTERICARDOLIA [id number] [place] [address] [place] Eosinophils/100 WBC (Bld) 4.9 % Normal [facility] Comment on above: Order Comment: Speci men Type: BLOOD SPECIMENOrdering Facility: [facility] Address: [address] [place] [address] Performed By: #### 5 7021-8 ####[facility] [id number] [place] [address] [place] Erythrocyte distribution width (RBC) [Ratio] 12.6 % Normal 11.5-15.0 [facility] Comment on above: Order Comment: Speci men Type: BLOOD SPECIMENOrdering Facility: [facility] Address: [address] [place] [address] Performed By: #### 5 7021-8 ####[facility]NA [id number] [place] [address] [place] Hematocrit (Bld) [Volume fraction] 38.3 % Normal 36.0-46.0 [facility] Comment on above: Order Comment: Speci men Type: BLOOD SPECIMENOrdering Facility: [facility] Address: [address] [place] [address] Performed By: #### 5 7021-8 ####[facility] INSTITUTENCLIA [id number] [place] [address] [place] Hemoglobin (Bld) [Mass/Vol] 12.7 g/dL Normal 11.5-15.5 [facility] Comment on above: Order Comment: Speci men Type: BLOOD SPECIMENOrdering Facility: [facility] Address: [address] [place] [address] Performed By: #### 5 7021-8 ####[facility] MATTHEWMARAA [id number] [place] [address] [place] Immature granulocytes (Bld) [#/Vol] 10*3/uL Normal <0.10 [facility] Comment on above: Order Comment: Speci men Type: BLOOD SPECIMENOrdering Facility: [facility] Address: [address] [place] [address] Performed By: #### 5 7021-8 ####[facility] [id number] [place] [address] [place] Immature granulocytes/100 WBC (Bld) 0.2 % Normal [facility] Comment on above: Order Comment: Speci men Type: BLOOD SPECIMENOrdering Facility: [facility] Address: [address] [place] [address] Performed By: #### 5 7021-8 ####[facility] [id number] [place] [address] [place] Lymphocytes (Bld) [#/Vol] 0.81 10*3/uL Low 1.00-4.00 [facility] Comment on above: Order Comment: Speci men Type: BLOOD SPECIMENOrdering Facility: [facility] Address: [address] [place] [address] Performed By: #### 5 7021-8 ####[facility] CENTERLIA [id number] [place] [address] [place] Lymphocytes/100 WBC (Bld) 15.3 % Normal [facility] Comment on above: Order Comment: Speci men Type: BLOOD SPECIMENOrdering Facility: [facility] Address: [address] [place] [address] Performed By: #### 5 7021-8 ####[facility] MATTHEWCONFLUENCEJOSÉ LUIS [id number] [place] [address] [place] MCH (RBC) [Entitic mass] 29.6 pg Normal 26.0-34.0 [facility] Comment on above: Order Comment: Speci men Type: BLOOD SPECIMENOrdering Facility: [facility] Address: [address] [place] [address] Performed By: #### 5 7021-8 ####[facility] [id number] [place] [address] [place] MCHC (RBC) [Mass/Vol] 33.2 g/dL Normal 30.5-36.0 [facility] Comment on above: Order Comment: Speci men Type: BLOOD SPECIMENOrdering Facility: [facility] Address: [address] [place] [address] Performed By: #### 5 7021-8 ####[facility] [id number] [place] [address] [place] MCV (RBC) [Entitic vol] 89.3 fL Normal 80.0-100.0 [facility] Comment on above: Order Comment: Speci men Type: BLOOD SPECIMENOrdering Facility: [facility] Address: [address] [place] [address] Performed By: #### 5 7021-8 ####[facility] [id number] [place] [address] [place] Monocytes (Bld) [#/Vol] 0.40 10*3/uL Normal <0.87 [facility] Comment on above: Order Comment: Speci men Type: BLOOD SPECIMENOrdering Facility: [facility] Address: [address] [place] [address] Performed By: #### 5 7021-8 ####[facility] [id number] [place] [address] [place] Monocytes/100 WBC (Bld) 7.6 % Normal [facility] Comment on above: Order Comment: Speci men Type: BLOOD SPECIMENOrdering Facility: [facility] Address: [address] [place] [address] Performed By: #### 5 7021-8 ####[facility] INSTITUTENCLIA [id number] [place] [address] [place] Neutrophils (Bld) [#/Vol] 3.79 10*3/uL Normal 1.45-7.50 [facility] Comment on above: Order Comment: Speci men Type: BLOOD SPECIMENOrdering Facility: [facility] Address: [address] [place] [address] Performed By: #### 5 7021-8 ####[facility] [id number] [place] [address] [place] Neutrophils/100 WBC (Bld) 71.6 % Normal [facility] Comment on above: Order Comment: Speci men Type: BLOOD SPECIMENOrdering Facility: [facility] Address: [address] [place] [address] Performed By: #### 5 7021-8 ####[facility] [id number] [place] [address] [place] Nucleated RBC (Bld) [#/Vol] 10*3/uL Normal <0.01 [facility] Comment on above: Order Comment: Speci men Type: BLOOD SPECIMENOrdering Facility: [facility] Address: [address] [place] [address] Performed By: #### 5 7021-8 ####[facility] [id number] [place] [address] [place] Nucleated RBC/100 WBC (Bld) [Ratio] 0.0 /100 WBC Normal [facility] Comment on above: Order Comment: Speci men Type: BLOOD SPECIMENOrdering Facility: [facility] Address: [address] [place] [address] Performed By: #### 5 7021-8 ####[facility] IRENE [id number] [place] [address] [place] Platelet mean volume (Bld) [Entitic vol] 12.5 fL Normal 9.0-12.7 [facility] Comment on above: Order Comment: Speci men Type: BLOOD SPECIMENOrdering Facility: [facility] Address: [address] [place] [address] Performed By: #### 5 7021-8 ####[facility] MATTHEWCONFLUENCEJOSÉ LUIS [id number] [place] [address] [place] Platelets (Bld) [#/Vol] 195 10*3/uL Normal 150-400 [facility] Comment on above: Order Comment: Speci men Type: BLOOD SPECIMENOrdering Facility: [facility] Address: [address] [place] [address] Performed By: #### 5 7021-8 ####[facility] INSTITUTENCDANIELA [id number] [place] [address] [place] RBC (Bld) [#/Vol] 4.29 10*6/uL Normal 3.90-5.20 [facility] Comment on above: Order Comment: Speci men Type: BLOOD SPECIMENOrdering Facility: [facility] Address: [address] [place] [address] Performed By: #### 5 7021-8 ####[facility] INSTITUTENCLIA [id number] [place] [address] [place] WBC (Bld) [#/Vol] 5.29 10*3/uL Normal 3.70-11.00 [facility] Comment on above: Order Comment: Speci men Type: BLOOD SPECIMENOrdering Facility: [facility] Address: [address] [place] [address] Performed By: #### 5 7021-8 ####[facility] MILLTOWNCLIA [id number] [place] [address] [place] Comprehensive metabolic 2000 panelon 01-27-2024 Albumin [Mass/Vol] 3.9 g/dL Normal 3.9-4.9 [facility] Comment on above: Order Comment: Speci men Type: BLOOD SPECIMENOrdering Facility: [facility] Address: [address] [place] [address] Performed By: #### 2 4323-8 ####[facility] MILLTOWNCLIA [id number] [place] [address] [place] ALP [Catalytic activity/Vol] 101 U/L Normal 34-123 [facility] Comment on above: Order Comment: Speci men Type: BLOOD SPECIMENOrdering Facility: [facility] Address: [address] [place] [address] Performed By: #### 2 4323-8 ####[facility] INSTITUTENCLIA [id number] [address] [place] ALT [Catalytic activity/Vol] 12 U/L Normal 7-38 [facility] Comment on above: Order Comment: Speci men Type: BLOOD SPECIMENOrdering Facility: [facility] Address: [address] [place] [address] Performed By: #### 2 4323-8 ####[facility] MILLTOWNCLIA [id number] [place] [address] [place] Anion gap [Moles/Vol] 9 mmol/L Normal 8-15 [facility] Comment on above: Order Comment: Speci men Type: BLOOD SPECIMENOrdering Facility: [facility] Address: [address] [place] [address] Performed By: #### 2 4323-8 ####[facility] INSTITUTENCLIA [id number] [place] [address] [place] AST [Catalytic activity/Vol] 14 U/L Normal 13-35 [facility] Comment on above: Order Comment: Speci men Type: BLOOD SPECIMENOrdering Facility: [facility] Address: [address] [place] [address] Performed By: #### 2 4323-8 ####[facility] INSTITUTENCLIA [id number] [place] [address] [place] Bilirubin [Mass/Vol] 0.8 mg/dL Normal 0.2-1.3 [facility] Comment on above: Order Comment: Speci men Type: BLOOD SPECIMENOrdering Facility: [facility] Address: [address] [place] [address] Performed By: #### 2 4323-8 ####[facility] INSTITUTENCLIA [id number] [place] [address] [place] Calcium [Mass/Vol] 9.4 mg/dL Normal 8.5-10.2 [facility] Comment on above: Order Comment: Speci men Type: BLOOD SPECIMENOrdering Facility: [facility] Address: [address] [place] [address] Performed By: #### 2 4323-8 ####[facility] [id number] [place] [address] [place] Chloride [Moles/Vol] 102 mmol/L Normal 98-107 [facility] Comment on above: Order Comment: Speci men Type: BLOOD SPECIMENOrdering Facility: [facility] Address: [address] [place] [address] Performed By: #### 2 4323-8 ####[facility] INSTITUTENCLIA [id number] [place] [address] [place] CO2 [Moles/Vol] 28 mmol/L Normal 22-30 [facility] Comment on above: Order Comment: Speci men Type: BLOOD SPECIMENOrdering Facility: [facility] Address: [address] [place] [address] Performed By: #### 2 4323-8 ####[facility] [id number] [place] [address] [place] Creatinine [Mass/Vol] 0.77 mg/dL Normal 0.58-0.96 [facility] Comment on above: Order Comment: Speci men Type: BLOOD SPECIMENOrdering Facility: [facility] Address: [address] [place] [address] Performed By: #### 2 4323-8 ####[facility] [id number] [place] [address] [place] Creatinine and Glomerular filtration rate.predicted panel (S/P/Bld) 79 mL/min/1.73m??? Normal >=60 [facility] Comment on above: Order Comment: Speci men Type: BLOOD SPECIMENOrdering Facility: [facility] Address: [address] [place] [address] Result Comment: Judith mated Glomerular Filtration Rate (eGFR) is calculated using the 2020 CKD-EPI creatinine equation. This equation utilizes serum creatinine, sex, and age as parameters. The creatinine assay has traceable calibration to isotope dilution-mass spectrometry. Refer to KDIGO guidelines for clinical interpretation. In patients with unstable renal function, e.g. those with acute kidney injury, the eGFR may not accurately reflect actual GFR. Performed By: #### 2 4323-8 ####[facility]ENTERLI [id number] [place] [address] [place] Glucose [Mass/Vol] 114 mg/dL High 74-99 [facility] Comment on above: Order Comment: Speci men Type: BLOOD SPECIMENOrdering Facility: [facility] Address: [address] [place] [address] Result Comment: The [place] Diabetes Association (ADA) provides guidance for cutoff values for fasting glucose and random glucose. The ADA defines fasting as no caloric intake for at least 8 hours. Fasting plasma glucose results between 100 to 125 mg/dL indicate increased risk for diabetes (prediabetes).Fasting plasma glucose results greater than or equal to 126 mg/dL meet the criteria for diagnosis of diabetes. In the absence of unequivocal hyperglycemia, results should be confirmed by repeat testing. In a patient with classic symptoms of hyperglycemia or hyperglycemic crisis, random plasma glucose results greater than or equal to 200 mg/dL meet the criteria for diagnosis of diabetes.Reference: Standards of Medical Care in Diabetes 2016, [place] Diabetes Association. Diabetes Care. 2016.39(Suppl 1). Performed By: #### 2 4323-8 ####[facility]WPALIA [id number] [place] [address] [place] Potassium [Moles/Vol] 4.1 mmol/L Normal 3.7-5.1 [facility] Comment on above: Order Comment: Speci men Type: BLOOD SPECIMENOrdering Facility: [facility] Address: [address] [place] [address] Performed By: #### 2 4323-8 ####[facility] [id number] [place] [address] [place] Protein [Mass/Vol] 6.7 g/dL Normal 6.3-8.0 [facility] Comment on above: Order Comment: Speci men Type: BLOOD SPECIMENOrdering Facility: [facility] Address: [address] [place] [address] Performed By: #### 2 4323-8 ####[facility]ENTERL[facility] [id number] [place] [address] [place] Sodium [Moles/Vol] 139 mmol/L Normal 136-144 [facility] Comment on above: Order Comment: Speci men Type: BLOOD SPECIMENOrdering Facility: [facility] Address: [address] [place] [address] Performed By: #### 2 4323-8 ####[facility]ENTERLIA [id number] [place] [address] [place] Urea nitrogen [Mass/Vol] 18 mg/dL Normal 7-21 [facility] Comment on above: Order Comment: Speci men Type: BLOOD SPECIMENOrdering Facility: [facility] Address: [address] [place] [address] Performed By: #### 2 4323-8 ####[facility] [id number] [place] [address] [place] Lipid 1996 panelon 4 Cholesterol [Mass/Vol] 175 mg/dL Normal <200 [facility] Comment on above: Order Comment: Speci men Type: BLOOD SPECIMENOrdering Facility: [facility] Address: [address] [place] [address] Result Comment: <200 mg/dL, Desirable 200-239 mg/dL, Borderline high>239 mg/dL, High Performed By: #### 2 4331-1 ####[facility] LABCLIA [id number] [address] [id number] [address] [place] Cholesterol in HDL [Mass/Vol] 62 mg/dL Normal >39 [facility] Comment on above: Order Comment: Speci men Type: BLOOD SPECIMENOrdering Facility: [facility] Address: [address] [place] [address] Result Comment: 40-5 9 mg/dL, Acceptable>59 mg/dL, High: Negative risk factor for coronary heart disease<40 mg/dL, Low: Positive risk factor for coronary heart disease Performed By: #### 2 4331-1 ####[facility] LABCLIA [id number] [address] [id number] [place] [address] [place] Cholesterol in LDL [Mass/Vol] 98 mg/dL Normal <100 [facility] Comment on above: Order Comment: Speci men Type: BLOOD SPECIMENOrdering Facility: [facility] Address: [address] [place] [address] Result Comment: <100 mg/dL, Optimal 100-129 mg/dL, Near optimal/above optimal 130-159 mg/dL, Borderline high 160-189 mg/dL, High>189 mg/dL, Very highSecondary prevention optimal LDL Cholesterol levels are recommended to be < 70 mg/dL Performed By: #### 2 4331-1 ####[facility] LABIA [id number] [id number] [place] [address] [place] Cholesterol in LDL/Cholesterol in HDL [Mass ratio] 1.58 {ratio} Normal <2.54 [facility] Comment on above: Order Comment: Speci men Type: BLOOD SPECIMENOrdering Facility: [facility] Address: [address] [place] [address] Result Comment: Refe joanna:1. National Cholesterol Education Program ATP III Guideline At-A-Glance Quick Desk Reference: National Heart, Lung, and Blood Liscomb. National Institutes of Health. 2001: NIH Publication No. 01-3305.2. An International Atherosclerosis Society position paper: global recommendations for the management of dyslipidemia: executive summary, Atherosclerosis. 2014: 232(2):410-413. Performed By: #### 2 4331-1 ####[facility] LABIA [id number] [address] [id number] [place] [address] [place] Cholesterol in VLDL [Mass/Vol] 15 mg/dL Normal <30 [facility] Comment on above: Order Comment: Speci men Type: BLOOD SPECIMENOrdering Facility: [facility] Address: [address] [place] [address] Performed By: #### 2 4331-1 ####[facility] LABCLIA [id number] [address] [id number] [place] [address] [place] Cholesterol non HDL [Mass/Vol] 113 mg/dL Normal <130 [facility] Comment on above: Order Comment: Speci men Type: BLOOD SPECIMENOrdering Facility: [facility] Address: [address] [place] [address] Result Comment: <130 mg/dL, Optimal 130-159 mg/dL, Near optimal/above optimal 160-189 mg/dL, Borderline high 190-219 mg/dL, High>219 mg/dL, Very highSecondary prevention optimal non HDL Cholesterol levels are recommended to be <100 mg/dL Performed By: #### 2 4331-1 ####[facility] LABCLIA [id number] [address] [id number] [place] [address] [place] Cholesterol.total/Choles terol in HDL [Mass ratio] 2.82 {ratio} Normal <5.10 [facility] Comment on above: Order Comment: Speci men Type: BLOOD SPECIMENOrdering Facility: [facility] Address: [address] [place] [address] Performed By: #### 2 4331-1 ####[facility] LABCLIA [id number] [address] [id number] [place] [address] [place] FASTING TIME 10 hrs Normal [facility] Comment on above: Order Comment: Speci men Type: BLOOD SPECIMENOrdering Facility: [facility] Address: [address] [place] [address] Performed By: #### 2 4331-1 ####[facility] LABCLIA [id number] [address] [id number] [address] [place] Triglyceride [Mass/Vol] 77 mg/dL Normal <150 [facility] Comment on above: Order Comment: Speci men Type: BLOOD SPECIMENOrdering Facility: [facility] Address: [address] [place] [address] Result Comment: <150 mg/dL, Normal 150-199 mg/dL, Borderline high 200-499 mg/dL, High>499 mg/dL, Very high Performed By: #### 2 4331-1 ####[facility] LABCLIA [id number] [address] [id number] [address] [place] CNPNon 01-25-2024 CNPN Normal [facility] CNNURSEon 01-18-2024 CNNURSE Normal [facility] Bedside Glucoseon 01-16-2024 FINGERSTICK GLU 282 mg/dL High 74-106 [facility] Comment on above: Result Comment: MERCEDES GEMENT OF PATIENT CARE PER NURSING PROTOCOL Performed By: #### L 501.080 ####[facility] [id number] [place], [place], [id number] Emergency Department Summary on 01-16-2024 Emergency Department Summary Normal [facility] CNOVon 01-02-2024 CNOV Normal [facility] CNPNon 12-26-2023 CNPN Normal [facility] Absolute lymphocyte countOrd ered By: Tierney Francis on 11-28-2023 Lymphocytes Auto (Unsp spec) [#/Vol] 0.85 10*3/uL 0.83-4.51 [facility] Automated lymphocyte count a s percentage of total leukocytesOrdered By: Tierney Francis on 11-28-2023 Lymphocytes/100 WBC Auto (Unsp spec) 15.1 % 19-41 [facility] Basophil percentageOrdered B y: Tierney Francis on 11-28-2023 Basophils/100 WBC (Bld) 0.4 % 0-1 [facility] Chloride [Moles/Vol] 102 mmol/L 98-107 [facility] Eosinophils/100 WBC (Bld) 4.6 % 0-5 [facility] Glucose [Mass/Vol] 325 mg/dL 74-106 [facility] Comment on above: Glucose result great er than or equal to 200 mg/dLsuggests DIABETES MELLITUS per A.D.A. criteria. Hemoglobin (Bld) [Mass/Vol] 12.5 g/dL 12.0-15.0 [facility] Monocytes/100 WBC (Bld) 8.2 % 0-10 [facility] Neutrophils (Bld) [#/Vol] 4.0 10*3/uL 2.0-7.7 [facility] Neutrophils/100 WBC (Bld) 71.5 % 47-70 [facility] Potassium [Moles/Vol] 3.9 mmol/L 3.5-5.1 [facility] Sodium [Moles/Vol] 136 mmol/L 136-145 [facility] WBC (Bld) [#/Vol] 5.6 10*3/uL 4.4-11.0 [facility] Determination of erythrocyte mean corpuscular volume (MCV)Ordered By: Tierney Francis on 11-28-2023 MCV (RBC) [Entitic vol] 90.1 fL 81-99 [facility] Erythrocyte distribution wid th ratioOrdered By: Tierney Francis on 11-28-2023 Erythrocyte distribution width (RBC) [Ratio] 12.7 % 11.6-14.6 [facility] Erythrocyte distribution wid th standard deviationOrdered By: Tierney Francis on 11-28-2023 Erythrocyte distribution width (RBC) [Entitic vol] 41.8 fL 35.1-43.9 [facility] Hematocrit Auto (Bld) [Volum e fraction]Ordered By: Tierney Francis on 11-28-2023 Hematocrit (Bld) [Volume fraction] 39.3 % 37-47 [facility] Immature granulocytes/100 WB C Auto (Bld)Ordered By: Tierney Francis on 11-28-2023 Immature granulocytes/100 WBC (Bld) 0.200 % 0.0-0.9 [facility] Comment on above: IG% - Immature Granu locytes (promyelocytes, myelocytes and metamyelocytes) > 1% indicates that a LEFT SHIFT is Present. Laboratory - Chemistry and C hemistry - challengeOrdered By: Tierney Francis on 11-28-2023 CO2 [Moles/Vol] 31.0 mmol/L 21.0-32.0 [facility] Urea nitrogen/Creatinine [Mass ratio] 18.2 mg/mg 10-20 [facility] Laboratory - Hematology and Cell countsOrdered By: Tierney Francis on 11-28-2023 MCH (RBC) [Entitic mass] 28.7 pg 27.0-32.0 [facility] MCHC (RBC) [Mass/Vol] 31.8 g/dL 32-36 [facility] Nucleated RBC/100 WBC (Bld) [Ratio] 0 % 0-5 [facility] Platelet mean volume (Bld) [Entitic vol] 12.4 fL 6.2-12.0 [facility] Platelets (Bld) [#/Vol] 181 10*3/uL 150-450 [facility] No Panel InformationOrdered By: Tierney Francis on 11-28-2023 Estimated Creatinine Clearance Calc 84.86 ml/min [facility] Estimated GFR (MDRD) Amer 80 mL/min >60 [facility] Comment on above: GFR Calc Estimated GFR (MDRD) Non-Af Amer 66 mL/min >60 [facility] Comment on above: Non- GFR Calc RBC Auto (Bld) [#/Vol]Ordere d By: Tierney Francis on 11-28-2023 RBC (Bld) [#/Vol] 4.36 10*6/uL 4.2-5.4 [facility] Serum or plasma calcium zora urement (mass/volume)Ordered By: Tierney Francis on 11-28-2023 Calcium [Mass/Vol] 9.1 mg/dL 8.5-10.1 [facility] Serum or plasma creatinine m easurement (mass/volume)Ordered By: Tierney Francis on 11-28-2023 Creatinine [Mass/Vol] 0.88 mg/dL 0.55-1.02 [facility] Comment on above: The validity of the calculated GFR & GFRAA in patients over 70 years has not been determined. Clinical correlation is essential. Serum or plasma urea nitroge n measurement (mass/volume)Ordered By: Tierney Francis on 11-28-2023 Urea nitrogen [Mass/Vol] 16 mg/dL 7-18 [facility] Thin prep Papanicolaou smear with manual screeningOrdered By: Tierney Francis on 11-28-2023 Thin prep Papanicolaou smear with manual screening 3 5-15 [facility] Thin prep Papanicolaou smear with manual screening 309 mg/dL [facility] Comment on above: MANAGEMENT OF PATIEN T CARE PER NURSING PROTOCOL Thin prep Papanicolaou smear with manual screeningOrdered By: Tierney Francis on 11-07-2023 Thin prep Papanicolaou smear with manual screening 282 mg/dL - [facility] Comment on above: MANAGEMENT OF PATIEN T CARE PER NURSING PROTOCOL Absolute lymphocyte countOrd ered By: Holland Sanches on 11-06-2023 Lymphocytes Auto (Unsp spec) [#/Vol] 0.97 10*3/uL 0.83-4.51 [facility] Automated lymphocyte count a s percentage of total leukocytesOrdered By: Holland Sanches on 11-06-2023 Lymphocytes/100 WBC Auto (Unsp spec) 15.2 % 19-41 [facility] Basophil percentageOrdered B y: Holland Sanches on 11-06-2023 Basophils/100 WBC (Bld) 0.5 % 0-1 [facility] Chloride [Moles/Vol] 103 mmol/L 98-107 [facility] Eosinophils/100 WBC (Bld) 5.8 % 0-5 [facility] Glucose [Mass/Vol] 160 mg/dL 74-106 [facility] Comment on above: Fasting Glucose resu lt greater than or equal to 126 mg/dL suggests DIABETES MELLITUS per A.D.A. criteria. Hemoglobin (Bld) [Mass/Vol] 12.8 g/dL 12.0-15.0 [facility] Monocytes/100 WBC (Bld) 6.9 % 0-10 [facility] Neutrophils (Bld) [#/Vol] 4.6 10*3/uL 2.0-7.7 [facility] Neutrophils/100 WBC (Bld) 71.4 % 47-70 [facility] Potassium [Moles/Vol] 4.0 mmol/L 3.5-5.1 [facility] Sodium [Moles/Vol] 138 mmol/L 136-145 [facility] WBC (Bld) [#/Vol] 6.4 10*3/uL 4.4-11.0 [facility] Determination of erythrocyte mean corpuscular volume (MCV)Ordered By: Holland Sanches on 11-06-2023 MCV (RBC) [Entitic vol] 89.7 fL 81-99 [facility] Erythrocyte distribution wid th ratioOrdered By: Holland Sanches on 11-06-2023 Erythrocyte distribution width (RBC) [Ratio] 13.2 % 11.6-14.6 [facility] Erythrocyte distribution wid th standard deviationOrdered By: Holland Sanches on 11-06-2023 Erythrocyte distribution width (RBC) [Entitic vol] 42.9 fL 35.1-43.9 [facility] Hematocrit Auto (Bld) [Volum e fraction]Ordered By: Holland Sanches on 11-06-2023 Hematocrit (Bld) [Volume fraction] 39.0 % 37-47 [facility] Immature granulocytes/100 WB C Auto (Bld)Ordered By: Holland Sanches on 11-06-2023 Immature granulocytes/100 WBC (Bld) 0.200 % 0.0-0.9 [facility] Comment on above: IG% - Immature Granu locytes (promyelocytes, myelocytes and metamyelocytes) > 1% indicates that a LEFT SHIFT is Present. Laboratory - Chemistry and C hemistry - challengeOrdered By: Holland Sanches on 11-06-2023 CO2 [Moles/Vol] 29.0 mmol/L 21.0-32.0 [facility] Urea nitrogen/Creatinine [Mass ratio] 28.9 mg/mg 10-20 [facility] Laboratory - Hematology and Cell countsOrdered By: Holland Sanches on 11-06-2023 MCH (RBC) [Entitic mass] 29.4 pg 27.0-32.0 [facility] MCHC (RBC) [Mass/Vol] 32.8 g/dL 32-36 [facility] Nucleated RBC/100 WBC (Bld) [Ratio] 0 % 0-5 [facility] Platelet mean volume (Bld) [Entitic vol] 13.0 fL 6.2-12.0 [facility] Platelets (Bld) [#/Vol] 200 10*3/uL 150-450 [facility] No Panel InformationOrdered By: Holland Sanches on 11-06-2023 Troponin I High Sensitivity 12 pg/mL 3.0-54.0 [facility] Comment on above: Please Note: New [place] t Units and Gender Specific Reference Ranges. For more information see Policy Stat Procedure [place] High Sensitivity Troponin (TNIH) and attachments. Estimated GFR (MDRD) Amer 81 mL/min >60 [facility] Comment on above: GFR Calc Estimated GFR (MDRD) Non-Af Amer 67 mL/min >60 [facility] Comment on above: Non- GFR Calc RBC Auto (Bld) [#/Vol]Ordere d By: Holland Sanches on 11-06-2023 RBC (Bld) [#/Vol] 4.35 10*6/uL 4.2-5.4 [facility] Serum or plasma calcium zora urement (mass/volume)Ordered By: Holland Sanches on 11-06-2023 Calcium [Mass/Vol] 9.1 mg/dL 8.5-10.1 [facility] Serum or plasma creatinine m easurement (mass/volume)Ordered By: Holland Sanches on 11-06-2023 Creatinine [Mass/Vol] 0.87 mg/dL 0.55-1.02 [facility] Comment on above: The validity of the calculated GFR & GFRAA in patients over 70 years has not been determined. Clinical correlation is essential. Serum or plasma urea nitroge n measurement (mass/volume)Ordered By: Holland Sanches on 11-06-2023 Urea nitrogen [Mass/Vol] 25 mg/dL 7-18 [facility] Thin prep Papanicolaou smear with manual screeningOrdered By: Holland Sanches on 11-06-2023 Thin prep Papanicolaou smear with manual screening 6 11-29 [facility] US DVT LOWER RTon 10-31-2023 US DVT LOWER RT * * *Final Report* * * DATE OF EXAM: Oct 31 2023 1:18PM LDU 1007 - US DVT LOWER RT / PROCEDURE REASON: multiple diagnoses * * * * Physician Interpretation * * * * EXAMINATION: RIGHT LOWER EXTREMITY DEEP VENOUS ULTRASOUND WITH DOPPLER IMAGING CLINICAL HISTORY: Pain and swelling right leg TECHNIQUE: Grayscale with compression maneuvers, color Doppler and spectral Doppler imaging of the right proximal deep veins was performed. Grayscale with compression maneuvers of the peroneal and posterior tibial veins was performed. The right great and small saphenous veins were evaluated at their insertion to the deep system. The contralateral common femoral vein was imaged for comparison. Images were obtained and stored in a permanent archive. MQ: [id number] COMPARISON: None RESULT: RIGHT LOWER EXTREMITY PROXIMAL DEEP VEINS Distal External Iliac, Common Femoral and proximal Profunda Veins: Compression: Normal Doppler: Normal, spontaneous respirophasic flow. Normal response to augmentation. Femoral vein: Compression: Normal Doppler: Normal, spontaneous flow. Normal response to augmentation. Popliteal vein: Compression: Normal Doppler: Normal, spontaneous flow. Normal response to augmentation. CALF DEEP VEINS Peroneal veins: Normal compression. Posterior tibial veins: Not visualized Gastrocnemius and Soleal veins: Not imaged. SUPERFICIAL VEINS Great saphenous: Patent and compressible at insertion into common femoral vein; not otherwise assessed. Small Saphenous: Patent and compressible in the proximal calf, not otherwise assessed. LEFT LOWER EXTREMITY (FOR COMPARISON) Common Femoral Vein: Compression: Normal Doppler: Normal, spontaneous respirophasic flow. Normal response to augmentation. IMPRESSION: Negative study for proximal DVT in the right lower extremity. Negative study for calf DVT in the right lower extremity, with limitations at the mid/distal posterior tibial vein level. Negative study for superficial thrombophlebitis in the imaged segments of the right lower extremity. 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: EVIE Transcribe Date/Time: Oct 31 2023 1:20P Dictated by : ENDY GOODMAN MD This examination was interpreted and the report reviewed and electronically signed by: ENDY GOODMAN MD on Oct 31 2023 1:21PM EST [id number] Normal [facility] US Lower extremity vein - ri chloe 10-31-2023 [facility] Absolute lymphocyte countOrd ered By: Tierney Francis on 10-28-2023 Lymphocytes Auto (Unsp spec) [#/Vol] 0.72 10*3/uL 0.83-4.51 [facility] Automated lymphocyte count a s percentage of total leukocytesOrdered By: Tierney Francis on 10-28-2023 Lymphocytes/100 WBC Auto (Unsp spec) 14.4 % 19-41 [facility] Basophil percentageOrdered B y: Tierney Francis on 10-28-2023 Basophils/100 WBC (Bld) 0.6 % 0-1 [facility] Chloride [Moles/Vol] 103 mmol/L 98-107 [facility] Eosinophils/100 WBC (Bld) 5.4 % 0-5 [facility] Glucose [Mass/Vol] 315 mg/dL 74-106 [facility] Comment on above: Glucose result great er than or equal to 200 mg/dLsuggests DIABETES MELLITUS per A.D.A. criteria. Hemoglobin (Bld) [Mass/Vol] 12.5 g/dL 12.0-15.0 [facility] Monocytes/100 WBC (Bld) 6.2 % 0-10 [facility] Neutrophils (Bld) [#/Vol] 3.7 10*3/uL 2.0-7.7 [facility] Neutrophils/100 WBC (Bld) 73.4 % 47-70 [facility] Potassium [Moles/Vol] 4.0 mmol/L 3.5-5.1 [facility] Sodium [Moles/Vol] 136 mmol/L 136-145 [facility] WBC (Bld) [#/Vol] 5.0 10*3/uL 4.4-11.0 [facility] Determination of erythrocyte mean corpuscular volume (MCV)Ordered By: Tierney Francis on 10-28-2023 MCV (RBC) [Entitic vol] 89.3 fL 81-99 [facility] Erythrocyte distribution wid th ratioOrdered By: Tierney Francis on 10-28-2023 Erythrocyte distribution width (RBC) [Ratio] 12.9 % 11.6-14.6 [facility] Erythrocyte distribution wid th standard deviationOrdered By: Tierney Francis on 10-28-2023 Erythrocyte distribution width (RBC) [Entitic vol] 42.0 fL 35.1-43.9 [facility] Hematocrit Auto (Bld) [Volum e fraction]Ordered By: Tierney Francis on 10-28-2023 Hematocrit (Bld) [Volume fraction] 38.4 % 37-47 [facility] Immature granulocytes/100 WB C Auto (Bld)Ordered By: Tierney Francis on 10-28-2023 Immature granulocytes/100 WBC (Bld) 0.000 % 0.0-0.9 [facility] Comment on above: IG% - Immature Granu locytes (promyelocytes, myelocytes and metamyelocytes) > 1% indicates that a LEFT SHIFT is Present. Laboratory - Chemistry and C hemistry - challengeOrdered By: Tierney Francis on 10-28-2023 CO2 [Moles/Vol] 29.0 mmol/L 21.0-32.0 [facility] Urea nitrogen/Creatinine [Mass ratio] 22.1 mg/mg 10-20 [facility] Laboratory - Hematology and Cell countsOrdered By: Tierney Francis on 10-28-2023 MCH (RBC) [Entitic mass] 29.1 pg 27.0-32.0 [facility] MCHC (RBC) [Mass/Vol] 32.6 g/dL 32-36 [facility] Nucleated RBC/100 WBC (Bld) [Ratio] 0 % 0-5 [facility] Platelet mean volume (Bld) [Entitic vol] 12.1 fL 6.2-12.0 [facility] Platelets (Bld) [#/Vol] 170 10*3/uL 150-450 [facility] No Panel InformationOrdered By: Tierney Francis on 10-28-2023 Estimated Creatinine Clearance Calc 78.68 ml/min [facility] Estimated GFR (MDRD) Amer 73 mL/min >60 [facility] Comment on above: GFR Calc Estimated GFR (MDRD) Non-Af Amer 60 mL/min >60 [facility] Comment on above: Non- GFR Calc Troponin I High Sensitivity 10 pg/mL 3.0-54.0 [facility] Comment on above: Please Note: New Mariajose t Units and Gender Specific Reference Ranges. For more information see Policy Stat Procedure [place] High Sensitivity Troponin (TNIH) and attachments. RBC Auto (Bld) [#/Vol]Ordere d By: Tierney Francis on 10-28-2023 RBC (Bld) [#/Vol] 4.30 10*6/uL 4.2-5.4 [facility] Serum or plasma calcium zora urement (mass/volume)Ordered By: Tierney Francis on 10-28-2023 Calcium [Mass/Vol] 8.8 mg/dL 8.5-10.1 [facility] Serum or plasma creatinine m easurement (mass/volume)Ordered By: Tierney Francis on 10-28-2023 Creatinine [Mass/Vol] 0.95 mg/dL 0.55-1.02 [facility] Comment on above: The validity of the calculated GFR & GFRAA in patients over 70 years has not been determined. Clinical correlation is essential. Serum or plasma urea nitroge n measurement (mass/volume)Ordered By: Tierney Francis on 10-28-2023 Urea nitrogen [Mass/Vol] 21 mg/dL 7-18 [facility] Thin prep Papanicolaou smear with manual screeningOrdered By: Tierney Francis on 10-28-2023 Thin prep Papanicolaou smear with manual screening 288 mg/dL 74-106 [facility] Comment on above: MANAGEMENT OF PATIEN T CARE PER NURSING PROTOCOL Thin prep Papanicolaou smear with manual screening 274 mg/dL 74-106 [facility] Comment on above: MANAGEMENT OF PATIEN T CARE PER NURSING PROTOCOL Thin prep Papanicolaou smear with manual screening 4 5-15 [facility] Absolute lymphocyte countOrd ered By: Amber Martino on 10-01-2023 Lymphocytes Auto (Unsp spec) [#/Vol] 0.78 10*3/uL 0.83-4.51 [facility] Automated lymphocyte count a s percentage of total leukocytesOrdered By: Amber Martino on 10-01-2023 Lymphocytes/100 WBC Auto (Unsp spec) 9.3 % 19-41 [facility] Basophil percentageOrdered B y: Amber Martino on 10-01-2023 Basophils/100 WBC (Bld) 0.4 % 0-1 [facility] Chloride [Moles/Vol] 103 mmol/L 98-107 [facility] Eosinophils/100 WBC (Bld) 1.2 % 0-5 [facility] Glucose [Mass/Vol] 163 mg/dL 74-106 [facility] Comment on above: Fasting Glucose resu lt greater than or equal to 126 mg/dL suggests DIABETES MELLITUS per A.D.A. criteria. Hemoglobin (Bld) [Mass/Vol] 12.7 g/dL 12.0-15.0 [facility] Monocytes/100 WBC (Bld) 7.6 % 0-10 [facility] Neutrophils (Bld) [#/Vol] 6.9 10*3/uL 2.0-7.7 [facility] Neutrophils/100 WBC (Bld) 81.4 % 47-70 [facility] Potassium [Moles/Vol] 3.9 mmol/L 3.5-5.1 [facility] Sodium [Moles/Vol] 138 mmol/L 136-145 [facility] WBC (Bld) [#/Vol] 8.4 10*3/uL 4.4-11.0 [facility] Determination of erythrocyte mean corpuscular volume (MCV)Ordered By: Amber Martino on 10-01-2023 MCV (RBC) [Entitic vol] 89.2 fL 81-99 [facility] Erythrocyte distribution wid th ratioOrdered By: Amber Martino on 10-01-2023 Erythrocyte distribution width (RBC) [Ratio] 12.5 % 11.6-14.6 [facility] Erythrocyte distribution wid th standard deviationOrdered By: Amber Martino on 10-01-2023 Erythrocyte distribution width (RBC) [Entitic vol] 41.0 fL 35.1-43.9 [facility] Hematocrit Auto (Bld) [Volum e fraction]Ordered By: Amber Martino on 10-01-2023 Hematocrit (Bld) [Volume fraction] 39.6 % 37-47 [facility] Immature granulocytes/100 WB C Auto (Bld)Ordered By: Amber Martino on 10-01-2023 Immature granulocytes/100 WBC (Bld) 0.100 % 0.0-0.9 [facility] Comment on above: IG% - Immature Granu locytes (promyelocytes, myelocytes and metamyelocytes) > 1% indicates that a LEFT SHIFT is Present. Laboratory - Chemistry and C hemistry - challengeOrdered By: Amber Martino on 10-01-2023 CO2 [Moles/Vol] 29.0 mmol/L 21.0-32.0 [facility] Urea nitrogen/Creatinine [Mass ratio] 15.7 mg/mg 10-20 [facility] Laboratory - Hematology and Cell countsOrdered By: Amber Martino on 10-01-2023 MCH (RBC) [Entitic mass] 28.6 pg 27.0-32.0 [facility] MCHC (RBC) [Mass/Vol] 32.1 g/dL 32-36 [facility] Nucleated RBC/100 WBC (Bld) [Ratio] 0 % 0-5 [facility] Platelet mean volume (Bld) [Entitic vol] 12.1 fL 6.2-12.0 [facility] Platelets (Bld) [#/Vol] 182 10*3/uL 150-450 [facility] Laboratory - Microbiology an d Antimicrobial susceptibilityOrdered By: Amber Martino on 10-01-2023 SARS-CoV-2 (COVID-19) RNA RAYMOND+probe Ql (Unsp spec) [facility] No Panel InformationOrdered By: Amber Martino on 10-01-2023 Estimated Creatinine Clearance Calc 92.45 ml/min [facility] Estimated GFR (MDRD) Amer 94 mL/min >60 [facility] Comment on above: GFR Calc Estimated GFR (MDRD) Non-Af Amer 78 mL/min >60 [facility] Comment on above: Non- GFR Calc Troponin I High Sensitivity 8 pg/mL 3.0-54.0 [facility] Comment on above: Please Note: New Mariajose t Units and Gender Specific Reference Ranges. For more information see Policy Stat Procedure [place] High Sensitivity Troponin (TNIH) and attachments. RBC Auto (Bld) [#/Vol]Ordere d By: Amber Martino on 10-01-2023 RBC (Bld) [#/Vol] 4.44 10*6/uL 4.2-5.4 [facility] Serum or plasma calcium zora urement (mass/volume)Ordered By: Amber Martino on 10-01-2023 Calcium [Mass/Vol] 9.0 mg/dL 8.5-10.1 [facility] Serum or plasma creatinine m easurement (mass/volume)Ordered By: Amber Martino on 10-01-2023 Creatinine [Mass/Vol] 0.77 mg/dL 0.55-1.02 [facility] Comment on above: The validity of the calculated GFR & GFRAA in patients over 70 years has not been determined. Clinical correlation is essential. Serum or plasma urea nitroge n measurement (mass/volume)Ordered By: Amber Martino on 10-01-2023 Urea nitrogen [Mass/Vol] 12 mg/dL 7-18 [facility] Thin prep Papanicolaou smear with manual screeningOrdered By: Amber Martino on 10-01-2023 Thin prep Papanicolaou smear with manual screening 6 5-15 [facility] Absolute lymphocyte countOrd ered By: Nik Nunez on 09-21-2023 Lymphocytes Auto (Unsp spec) [#/Vol] 1.12 10*3/uL 0.83-4.51 [facility] Automated lymphocyte count a s percentage of total leukocytesOrdered By: Nik Nunez on 09-21-2023 Lymphocytes/100 WBC Auto (Unsp spec) 17.9 % 19-41 [facility] Basophil percentageOrdered B y: Nik Nunez on 09-21-2023 Basophils/100 WBC (Bld) 0.3 % 0-1 [facility] Chloride [Moles/Vol] 107 mmol/L 98-107 [facility] Eosinophils/100 WBC (Bld) 5.8 % 0-5 [facility] Glucose [Mass/Vol] 148 mg/dL 74-106 [facility] Comment on above: Fasting Glucose resu lt greater than or equal to 126 mg/dL suggests DIABETES MELLITUS per A.D.A. criteria. Hemoglobin (Bld) [Mass/Vol] 12.5 g/dL 12.0-15.0 [facility] Monocytes/100 WBC (Bld) 8.3 % 0-10 [facility] Neutrophils (Bld) [#/Vol] 4.2 10*3/uL 2.0-7.7 [facility] Neutrophils/100 WBC (Bld) 67.5 % 47-70 [facility] Potassium [Moles/Vol] 3.8 mmol/L 3.5-5.1 [facility] Sodium [Moles/Vol] 139 mmol/L 136-145 [facility] WBC (Bld) [#/Vol] 6.3 10*3/uL 4.4-11.0 [facility] Determination of erythrocyte mean corpuscular volume (MCV)Ordered By: Nik Nunez on 09-21-2023 MCV (RBC) [Entitic vol] 88.2 fL 81-99 [facility] Erythrocyte distribution wid th ratioOrdered By: Nik Nunez on 09-21-2023 Erythrocyte distribution width (RBC) [Ratio] 12.6 % 11.6-14.6 [facility] Erythrocyte distribution wid th standard deviationOrdered By: Nik Nunez on 09-21-2023 Erythrocyte distribution width (RBC) [Entitic vol] 40.6 fL 35.1-43.9 [facility] Hematocrit Auto (Bld) [Volum e fraction]Ordered By: Nik Nunez on 09-21-2023 Hematocrit (Bld) [Volume fraction] 38.8 % 37-47 [facility] Immature granulocytes/100 WB C Auto (Bld)Ordered By: Nik Nunez on 09-21-2023 Immature granulocytes/100 WBC (Bld) 0.200 % 0.0-0.9 [facility] Comment on above: IG% - Immature Granu locytes (promyelocytes, myelocytes and metamyelocytes) > 1% indicates that a LEFT SHIFT is Present. Laboratory - Chemistry and C hemistry - challengeOrdered By: Nik Nunez on 09-21-2023 CO2 [Moles/Vol] 29.0 mmol/L 21.0-32.0 [facility] Urea nitrogen/Creatinine [Mass ratio] 16.0 mg/mg 10-20 [facility] Laboratory - Hematology and Cell countsOrdered By: Nik Nunez on 09-21-2023 MCH (RBC) [Entitic mass] 28.4 pg 27.0-32.0 [facility] MCHC (RBC) [Mass/Vol] 32.2 g/dL 32-36 [facility] Nucleated RBC/100 WBC (Bld) [Ratio] 0 % 0-5 [facility] Platelet mean volume (Bld) [Entitic vol] 11.8 fL 6.2-12.0 [facility] Platelets (Bld) [#/Vol] 209 10*3/uL 150-450 [facility] No Panel InformationOrdered By: Nik Nunez on 09-21-2023 Troponin I High Sensitivity 10 pg/mL 3.0-54.0 [facility] Comment on above: Please Note: New Mariajose t Units and Gender Specific Reference Ranges. For more information see Policy Stat Procedure [place] High Sensitivity Troponin (TNIH) and attachments. Estimated Creatinine Clearance Calc 74.72 ml/min [facility] Estimated GFR (MDRD) Amer 69 mL/min >60 [facility] Comment on above: GFR Calc Estimated GFR (MDRD) Non-Af Amer 57 mL/min >60 [facility] Comment on above: Non- GFR Calc RBC Auto (Bld) [#/Vol]Ordere d By: Nik Nunez on 09-21-2023 RBC (Bld) [#/Vol] 4.40 10*6/uL 4.2-5.4 [facility] Serum or plasma calcium zora urement (mass/volume)Ordered By: Nik Nunez on 09-21-2023 Calcium [Mass/Vol] 9.0 mg/dL 8.5-10.1 [facility] Serum or plasma creatinine m easurement (mass/volume)Ordered By: Nik Nunez on 09-21-2023 Creatinine [Mass/Vol] 1.00 mg/dL 0.55-1.02 [facility] Comment on above: The validity of the calculated GFR & GFRAA in patients over 70 years has not been determined. Clinical correlation is essential. Serum or plasma urea nitroge n measurement (mass/volume)Ordered By: Nik Nunez on 09-21-2023 Urea nitrogen [Mass/Vol] 16 mg/dL 7-18 [facility] Thin prep Papanicolaou smear with manual screeningOrdered By: Nik Nunez on 09-21-2023 Thin prep Papanicolaou smear with manual screening 3 5-15 [facility] Absolute lymphocyte countOrd ered By: Benjamín Stanford on 09-16-2023 Lymphocytes Auto (Unsp spec) [#/Vol] 1.04 10*3/uL 0.83-4.51 [facility] Automated lymphocyte count a s percentage of total leukocytesOrdered By: Benjamín Stanford on 09-16-2023 Lymphocytes/100 WBC Auto (Unsp spec) 14.9 % 19-41 [facility] Basophil percentageOrdered B y: Benjamín Stanford on 09-16-2023 Basophils/100 WBC (Bld) 0.7 % 0-1 [facility] Chloride [Moles/Vol] 104 mmol/L 98-107 [facility] Eosinophils/100 WBC (Bld) 4.1 % 0-5 [facility] Glucose [Mass/Vol] 144 mg/dL 74-106 [facility] Comment on above: Fasting Glucose resu lt greater than or equal to 126 mg/dL suggests DIABETES MELLITUS per A.D.A. criteria. Hemoglobin (Bld) [Mass/Vol] 13.0 g/dL 12.0-15.0 [facility] Monocytes/100 WBC (Bld) 7.7 % 0-10 [facility] Neutrophils (Bld) [#/Vol] 5.1 10*3/uL 2.0-7.7 [facility] Neutrophils/100 WBC (Bld) 72.2 % 47-70 [facility] Potassium [Moles/Vol] 3.7 mmol/L 3.5-5.1 [facility] Sodium [Moles/Vol] 137 mmol/L 136-145 [facility] WBC (Bld) [#/Vol] 7.0 10*3/uL 4.4-11.0 [facility] Determination of erythrocyte mean corpuscular volume (MCV)Ordered By: Benjamín Stanford on 09-16-2023 MCV (RBC) [Entitic vol] 88.9 fL 81-99 [facility] Erythrocyte distribution wid th ratioOrdered By: Benjamín Satnford on 09-16-2023 Erythrocyte distribution width (RBC) [Ratio] 12.5 % 11.6-14.6 [facility] Erythrocyte distribution wid th standard deviationOrdered By: Benjamín Stanford on 09-16-2023 Erythrocyte distribution width (RBC) [Entitic vol] 40.3 fL 35.1-43.9 [facility] Hematocrit Auto (Bld) [Volum e fraction]Ordered By: Benjamín Stanford on 09-16-2023 Hematocrit (Bld) [Volume fraction] 40.7 % 37-47 [facility] Immature granulocytes/100 WB C Auto (Bld)Ordered By: Benjamín Stanford on 09-16-2023 Immature granulocytes/100 WBC (Bld) 0.400 % 0.0-0.9 [facility] Comment on above: IG% - Immature Granu locytes (promyelocytes, myelocytes and metamyelocytes) > 1% indicates that a LEFT SHIFT is Present. Laboratory - Chemistry and C hemistry - challengeOrdered By: Benjamín Stanford on 09-16-2023 CO2 [Moles/Vol] 28.0 mmol/L 21.0-32.0 [facility] Urea nitrogen/Creatinine [Mass ratio] 21.6 mg/mg 10-20 [facility] Laboratory - Hematology and Cell countsOrdered By: Benjamín Stanford on 09-16-2023 MCH (RBC) [Entitic mass] 28.4 pg 27.0-32.0 [facility] MCHC (RBC) [Mass/Vol] 31.9 g/dL 32-36 [facility] Nucleated RBC/100 WBC (Bld) [Ratio] 0 % 0-5 [facility] Platelet mean volume (Bld) [Entitic vol] 12.2 fL 6.2-12.0 [facility] Platelets (Bld) [#/Vol] 230 10*3/uL 150-450 [facility] No Panel InformationOrdered By: Benjamín Stanford on 09-16-2023 Estimated Creatinine Clearance Calc 78.67 ml/min [facility] Estimated GFR (MDRD) Amer 75 mL/min >60 [facility] Comment on above: GFR Calc Estimated GFR (MDRD) Non-Af Amer 62 mL/min >60 [facility] Comment on above: Non- GFR Calc RBC Auto (Bld) [#/Vol]Ordere d By: Benjamín Stanford on 09-16-2023 RBC (Bld) [#/Vol] 4.58 10*6/uL 4.2-5.4 [facility] Serum or plasma calcium zora urement (mass/volume)Ordered By: Benjamín Stanford on 09-16-2023 Calcium [Mass/Vol] 9.2 mg/dL 8.5-10.1 [facility] Serum or plasma creatinine m easurement (mass/volume)Ordered By: Benjamín Stanford on 09-16-2023 Creatinine [Mass/Vol] 0.93 mg/dL 0.55-1.02 [facility] Comment on above: The validity of the calculated GFR & GFRAA in patients over 70 years has not been determined. Clinical correlation is essential. Serum or plasma thyroid stim ulating hormone (TSH) measurement (units/volume)Ordered By: Benjamín Stanford on 09-16-2023 TSH Qn 2.95 uIU/mL 0.358-3.74 [facility] Serum or plasma urea nitroge n measurement (mass/volume)Ordered By: Benjamín Stanford on 09-16-2023 Urea nitrogen [Mass/Vol] 20 mg/dL 7-18 [facility] Thin prep Papanicolaou smear with manual screeningOrdered By: Benjamín Stanford on 09-16-2023 Thin prep Papanicolaou smear with manual screening 11 19- [facility] CBC W Auto Differential pane l (Bld)on 09-01-2023 Basophils (Bld) [#/Vol] 0.03 10*3/uL <0.11 k/uL [facility] Basophils/100 WBC (Bld) 0.4 % [facility] Differential cell count method Nom (Bld) Auto [facility] Eosinophils (Bld) [#/Vol] 0.26 10*3/uL <0.46 k/uL [facility] Eosinophils/100 WBC (Bld) 3.6 % [facility] Erythrocyte distribution width (RBC) [Ratio] 12.6 % 11.5 - 15.0 % [facility] Hematocrit (Bld) [Volume fraction] 39.8 % 36.0 - 46.0 % [facility] Hemoglobin (Bld) [Mass/Vol] 13.0 g/dL 11.5 - 15.5 g/dL [facility] Immature granulocytes (Bld) [#/Vol] <0.10 k/uL [facility] Immature granulocytes/100 WBC (Bld) 0.3 % [facility] Lymphocytes (Bld) [#/Vol] 0.48 10*3/uL Low 1.00 - 4.00 k/uL [facility] Lymphocytes/100 WBC (Bld) 6.6 % [facility] MCH (RBC) [Entitic mass] 29.3 pg 26. 0 - 34.0 pg [facility] MCHC (RBC) [Mass/Vol] 32.7 g/dL 30.5 - 36.0 g/dL [facility] MCV (RBC) [Entitic vol] 89.8 fL 80.0 - 100.0 fL [facility] Monocytes (Bld) [#/Vol] 0.46 10*3/uL <0.87 k/uL [facility] Monocytes/100 WBC (Bld) 6.3 % [facility] Neutrophils (Bld) [#/Vol] 6.05 10*3/uL 1.45 - 7.50 k/uL [facility] Neutrophils/100 WBC (Bld) 82.8 % [facility] Nucleated RBC (Bld) [#/Vol] <0.01 k/uL [facility] Nucleated RBC/100 WBC (Bld) [Ratio] 0.0 /100 WBC [facility] Platelet mean volume (Bld) [Entitic vol] 12.7 fL 9.0 - 12.7 fL [facility] Platelets (Bld) [#/Vol] 199 10*3/uL 150 - 400 k/uL [facility] RBC (Bld) [#/Vol] 4.43 10*6/uL 3.90 - 5.2 0 m/uL [facility] WBC (Bld) [#/Vol] 7.30 10*3/uL 3.70 - 11.00 k/uL [facility] No Panel Informationon 06-23 [facility] SPIROMETRY BASELINE ONLYon 1 08-24-2022 [id number]% PRE (L/S) 0.93 L/S [facility] FEV1 PRE (L) 1.64 L [facility] FEV1/FVC PRE (%) 67 % [facility] FVC PRE (L) 2.47 L [facility] PEF PRE (L/S) 5.38 L/S [facility] Absolute lymphocyte countOrd ered By: Jesus Kessler on 05-28-2023 Lymphocytes Auto (Unsp spec) [#/Vol] 1.01 10*3/uL 0.83-4.51 [facility] Basophil percentageOrdered B y: Jesus Kessler on 05-28-2023 Basophils/100 WBC (Bld) 0.5 % 0-1 [facility] Chloride [Moles/Vol] 106 mmol/L 98-107 [facility] Eosinophils/100 WBC (Bld) 4.4 % 0-5 [facility] [facility] Glucose [Mass/Vol] 170 mg/dL 74-106 [facility] Comment on above: Fasting Glucose resu lt greater than or equal to 126 mg/dL suggests DIABETES MELLITUS per A.D.A. criteria. Neutrophils (Bld) [#/Vol] 4.8 10*3/uL 2.0-7.7 [facility] Neutrophils/100 WBC (Bld) 72.7 % 47-70 [facility] Potassium [Moles/Vol] 4.3 mmol/L 3.5-5.1 [facility] Sodium [Moles/Vol] 138 mmol/L 136-145 [facility] WBC (Bld) [#/Vol] 6.5 10*3/uL 4.4-11.0 [facility] Blood erythrocytes count (nu mber/volume)Ordered By: Jesus Kessler on 05-28-2023 RBC (Bld) [#/Vol] 4.29 10*6/uL 4.2-5.4 [facility] Blood hemoglobin measurement (mass/volume)Ordered By: Jesus Kessler on 05-28-2023 Hemoglobin (Bld) [Mass/Vol] 12.7 g/dL 12.0-15.0 [facility] Blood lymphocytes/100 leukoc ytesOrdered By: Jesus Kessler on 05-28-2023 Lymphocytes/100 WBC (Bld) 15.4 % 19-41 [facility] Blood monocytes/100 leukocyt esOrdered By: Jesus Kessler on 05-28-2023 Monocytes/100 WBC (Bld) 7.0 % 0-10 [facility] Blood platelet mean volumeOr dered By: Jesus Kessler on 05-28-2023 Platelet mean volume (Bld) [Entitic vol] 11.6 fL 6.2-12.0 [facility] Determination of erythrocyte mean corpuscular volume (MCV)Ordered By: Jesus Kessler on 05-28-2023 MCV (RBC) [Entitic vol] 90.9 fL 81-99 [facility] Glucose Glucometer (BldC) [M ass/Vol]Ordered By: Jesus Kessler on 05-28-2023 Glucose [Mass/Vol] 168 mg/dL 74-106 [facility] Comment on above: MANAGEMENT OF PATIEN T CARE PER NURSING PROTOCOL Hematocrit Auto (Bld) [Volum e fraction]Ordered By: Jesus Kessler on 05-28-2023 Hematocrit (Bld) [Volume fraction] 39.0 % 37-47 [facility] Laboratory - Chemistry and C hemistry - challengeOrdered By: Jesus Kessler on 05-28-2023 CO2 [Moles/Vol] 31.0 mmol/L 21.0-32.0 [facility] Urea nitrogen/Creatinine [Mass ratio] 20.5 mg/mg 10-20 [facility] Laboratory - Hematology and Cell countsOrdered By: Jesus Kessler on 05-28-2023 Erythrocyte distribution width (RBC) [Entitic vol] 41.7 fL 35.1-43.9 [facility] Erythrocyte distribution width (RBC) [Ratio] 12.9 % 11.6-14.6 [facility] Immature granulocytes/100 WBC (Bld) 0.000 % 0.0-0.9 [facility] Comment on above: IG% - Immature Granu locytes (promyelocytes, myelocytes and metamyelocytes) > 1% indicates that a LEFT SHIFT is Present. MCH (RBC) [Entitic mass] 29.6 pg 27.0-32.0 [facility] Nucleated RBC/100 WBC (Bld) [Ratio] 0 % 0-5 [facility] MCHC Auto (RBC) [Mass/Vol]Or dered By: Jesus Kessler on 05-28-2023 MCHC (RBC) [Mass/Vol] 32.6 g/dL 32-36 [facility] No Panel InformationOrdered By: Jesus Kessler on 05-28-2023 Troponin I High Sensitivity 9 pg/mL 3.0-54.0 [facility] Comment on above: Please Note: New [place]ose t Units and Gender Specific Reference Ranges. For more information see Policy Stat Procedure [place] High Sensitivity Troponin (TNIH) and attachments. Estimated GFR (MDRD) Amer 61 mL/min >60 [facility] Comment on above: GFR Calc Estimated GFR (MDRD) Non-Af Amer 50 mL/min >60 [facility] Comment on above: Non- GFR Calc Platelets bldOrdered By: Munira Kessler on 05-28-2023 Platelets (Bld) [#/Vol] 198 10*3/uL 150-450 [facility] Serum or plasma calcium zora urement (mass/volume)Ordered By: Jesus Kessler on 05-28-2023 Calcium [Mass/Vol] 8.8 mg/dL 8.5-10.1 [facility] Serum or plasma creatinine m easurement (mass/volume)Ordered By: Jesus Kessler on 05-28-2023 Creatinine [Mass/Vol] 1.12 mg/dL 0.55-1.02 [facility] Comment on above: The validity of the calculated GFR & GFRAA in patients over 70 years has not been determined. Clinical correlation is essential. Serum or plasma urea nitroge n measurement (mass/volume)Ordered By: Jesus Kessler on 05-28-2023 Urea nitrogen [Mass/Vol] 23 mg/dL 7-18 [facility] Thin prep Papanicolaou smear with manual screeningOrdered By: Jesus Kessler on 05-28-2023 Thin prep Papanicolaou smear with manual screening 1 5-15 [facility] Absolute lymphocyte countOrd ered By: Dr. Francis on 11-04-2022 Lymphocytes Auto (Unsp spec) [#/Vol] 1.20 10*3/uL 0.83-4.51 [facility] Basophil percentageOrdered B y: Dr. Francis on 11-04-2022 Basophils/100 WBC (Bld) 0.3 % 0-1 [facility] Chloride [Moles/Vol] 105 mmol/L 98-107 [facility] Eosinophils/100 WBC (Bld) 1.7 % 0-5 [facility] Glucose [Mass/Vol] 162 mg/dL 74-106 [facility] Comment on above: Fasting Glucose resu lt greater than or equal to 126 mg/dL suggests DIABETES MELLITUS per A.D.A. criteria. Neutrophils (Bld) [#/Vol] 4.5 10*3/uL 2.0-7.7 [facility] Neutrophils/100 WBC (Bld) 71.4 % 47-70 [facility] Potassium [Moles/Vol] 3.6 mmol/L 3.5-5.1 [facility] Sodium [Moles/Vol] 138 mmol/L 136-145 [facility] WBC (Bld) [#/Vol] 6.4 10*3/uL 4.4-11.0 [facility] Blood erythrocytes count (nu mber/volume)Ordered By: Dr. Francis on 11-04-2022 RBC (Bld) [#/Vol] 4.19 10*6/uL 4.2-5.4 [facility] Blood hemoglobin measurement (mass/volume)Ordered By: Dr. Francis on 11-04-2022 Hemoglobin (Bld) [Mass/Vol] 12.6 g/dL 12.0-15.0 [facility] Blood lymphocytes/100 leukoc ytesOrdered By: Dr. Francis on 11-04-2022 Lymphocytes/100 WBC (Bld) 18.9 % 19-41 [facility] Blood monocytes/100 leukocyt esOrdered By: Dr. Francis on 11-04-2022 Monocytes/100 WBC (Bld) 7.5 % 0-10 [facility] Blood platelet mean volumeOr dered By: Dr. Francis on 11-04-2022 Platelet mean volume (Bld) [Entitic vol] 12.5 fL 6.2-12.0 [facility] Determination of erythrocyte mean corpuscular volume (MCV)Ordered By: Dr. Francis on 11-04-2022 MCV (RBC) [Entitic vol] 92.6 fL 81-99 [facility] Glucose Glucometer (BldC) [M ass/Vol]Ordered By: Dr. Francis on 11-04-2022 Glucose [Mass/Vol] 130 mg/dL 74-106 [facility] Comment on above: MANAGEMENT OF PATIEN T CARE PER NURSING PROTOCOL Hematocrit Auto (Bld) [Volum e fraction]Ordered By: Dr. Francis on 11-04-2022 Hematocrit (Bld) [Volume fraction] 38.8 % 37-47 [facility] Laboratory - Chemistry and C hemistry - challengeOrdered By: Dr. Francis on 11-04-2022 CO2 [Moles/Vol] 28.0 mmol/L 21.0-32.0 [facility] Urea nitrogen/Creatinine [Mass ratio] 22.3 mg/mg 10-20 [facility] - Hematology and Cell countsOrdered By: Dr. Francis on 11-04-2022 Erythrocyte distribution width (RBC) [Entitic vol] 42.7 fL 35.1-43.9 [facility] Erythrocyte distribution width (RBC) [Ratio] 12.6 % 11.6-14.6 [facility] Immature granulocytes/100 WBC (Bld) 0.200 % 0.0-0.9 [facility] Comment on above: IG% - Immature Granu locytes (promyelocytes, myelocytes and metamyelocytes) > 1% indicates that a LEFT SHIFT is Present. MCH (RBC) [Entitic mass] 30.1 pg 27.0-32.0 [facility] Nucleated RBC/100 WBC (Bld) [Ratio] 0 % 0-5 [facility] MCHC Auto (RBC) [Mass/Vol]Or dered By: Dr. Francis on 11-04-2022 MCHC (RBC) [Mass/Vol] 32.5 g/dL 32-36 [facility] No Panel InformationOrdered By: Dr. Francis on 11-04-2022 Troponin I High Sensitivity 11 pg/mL 3.0-54.0 [facility] Comment on above: Please Note: New [place] t Units and Gender Specific Reference Ranges. For more information see Policy Stat Procedure [place] High Sensitivity Troponin (TNIH) and attachments. D-Dimer Quantitative (PE/DVT) 0.39 FEU/ug/m 0.27-0.49 [facility] Comment on above: NORMAL D-Dimer level (<0.50) indicates no DVT or PE. Estimated Creatinine Clearance Calc 57.92 ml/min [facility] Estimated GFR (MDRD) Amer 83 mL/min >60 [facility] Comment on above: GFR Calc Estimated GFR (MDRD) Non-Af Amer 69 mL/min >60 [facility] Comment on above: Non- GFR Calc Platelets bldOrdered By: Dr. Francis on 11-04-2022 Platelets (Bld) [#/Vol] 212 10*3/uL 150-450 [facility] Serum or plasma calcium zora urement (mass/volume)Ordered By: Dr. Francis on 11-04-2022 Calcium [Mass/Vol] 9.5 mg/dL 8.5-10.1 [facility] Serum or plasma creatinine m easurement (mass/volume)Ordered By: Dr. Francis on 11-04-2022 Creatinine [Mass/Vol] 0.85 mg/dL 0.55-1.02 [facility] Comment on above: The validity of the calculated GFR & GFRAA in patients over 70 years has not been determined. Clinical correlation is essential. Serum or plasma urea nitroge n measurement (mass/volume)Ordered By: Dr. Francis on 11-04-2022 Urea nitrogen [Mass/Vol] 19 mg/dL 7-18 [facility] Thin prep Papanicolaou smear with manual screeningOrdered By: Dr. Francis on 11-04-2022 Thin prep Papanicolaou smear with manual screening 5 5-15 [facility] Absolute lymphocyte countOrd ered By: ED PROVIDER on 10-11-2022 Lymphocytes Auto (Unsp spec) [#/Vol] 0.98 10*3/uL 0.83-4.51 [facility] Basophil percentageOrdered B y: ED PROVIDER on 10-11-2022 Basophils/100 WBC (Bld) 0.3 % 0-1 [facility] Chloride [Moles/Vol] 104 mmol/L 98-107 [facility] Eosinophils/100 WBC (Bld) 1.0 % 0-5 [facility] Glucose [Mass/Vol] 202 mg/dL 74-106 [facility] Comment on above: Glucose result great er than or equal to 200 mg/dLsuggests DIABETES MELLITUS per A.D.A. criteria. Neutrophils (Bld) [#/Vol] 5.7 10*3/uL 2.0-7.7 [facility] Neutrophils/100 WBC (Bld) 78.2 % 47-70 [facility] Potassium [Moles/Vol] 4.0 mmol/L 3.5-5.1 [facility] Sodium [Moles/Vol] 137 mmol/L 136-145 [facility] WBC (Bld) [#/Vol] 7.2 10*3/uL 4.4-11.0 [facility] Blood erythrocytes count (nu mber/volume)Ordered By: ED PROVIDER on 10-11-2022 RBC (Bld) [#/Vol] 4.17 10*6/uL 4.2-5.4 [facility] Blood hemoglobin measurement (mass/volume)Ordered By: ED PROVIDER on 10-11-2022 Hemoglobin (Bld) [Mass/Vol] 12.8 g/dL 12.0-15.0 [facility] Blood lymphocytes/100 leukoc ytesOrdered By: ED PROVIDER on 10-11-2022 Lymphocytes/100 WBC (Bld) 13.6 % 19-41 [facility] Blood monocytes/100 leukocyt esOrdered By: ED PROVIDER on 10-11-2022 Monocytes/100 WBC (Bld) 6.8 % 0-10 [facility] Blood platelet mean volumeOr dered By: ED PROVIDER on 10-11-2022 Platelet mean volume (Bld) [Entitic vol] 12.1 fL 6.2-12.0 [facility] Determination of erythrocyte mean corpuscular volume (MCV)Ordered By: ED PROVIDER on 10-11-2022 MCV (RBC) [Entitic vol] 92.8 fL 81-99 [facility] Hematocrit Auto (Bld) [Volum e fraction]Ordered By: ED PROVIDER on 10-11-2022 Hematocrit (Bld) [Volume fraction] 38.7 % 37-47 [facility] Laboratory - Chemistry and C hemistry - challengeOrdered By: ED PROVIDER on 10-11-2022 CO2 [Moles/Vol] 29.0 mmol/L 21.0-32.0 [facility] Urea nitrogen/Creatinine [Mass ratio] 20.6 mg/mg 10-20 [facility] - Hematology and Cell countsOrdered By: ED PROVIDER on 10-11-2022 Erythrocyte distribution width (RBC) [Entitic vol] 43.7 fL 35.1-43.9 [facility] Erythrocyte distribution width (RBC) [Ratio] 12.9 % 11.6-14.6 [facility] Immature granulocytes/100 WBC (Bld) 0.100 % 0.0-0.9 [facility] Comment on above: IG% - Immature Granu locytes (promyelocytes, myelocytes and metamyelocytes) > 1% indicates that a LEFT SHIFT is Present. MCH (RBC) [Entitic mass] 30.7 pg 27.0-32.0 [facility] Nucleated RBC/100 WBC (Bld) [Ratio] 0 % 0-5 [facility] MCHC Auto (RBC) [Mass/Vol]Or dered By: ED PROVIDER on 10-11-2022 MCHC (RBC) [Mass/Vol] 33.1 g/dL 32-36 [facility] No Panel InformationOrdered By: ED PROVIDER on 10-11-2022 Troponin I High Sensitivity 10 pg/mL 3.0-54.0 [facility] Comment on above: Please Note: New Mariajose t Units and Gender Specific Reference Ranges. For more information see Policy Stat Procedure [place] High Sensitivity Troponin (TNIH) and attachments. Estimated Creatinine Clearance Calc 49.24 ml/min [facility] Estimated GFR (MDRD) Amer 93 mL/min >60 [facility] Comment on above: GFR Calc Estimated GFR (MDRD) Non-Af Amer 76 mL/min >60 [facility] Comment on above: Non- GFR Calc Platelets bldOrdered By: ED PROVIDER on 10-11-2022 Platelets (Bld) [#/Vol] 207 10*3/uL 150-450 [facility] Serum or plasma calcium zora urement (mass/volume)Ordered By: ED PROVIDER on 10-11-2022 Calcium [Mass/Vol] 9.1 mg/dL 8.5-10.1 [facility] Serum or plasma creatinine m easurement (mass/volume)Ordered By: ED PROVIDER on 10-11-2022 Creatinine [Mass/Vol] 0.78 mg/dL 0.55-1.02 [facility] Comment on above: The validity of the calculated GFR & GFRAA in patients over 70 years has not been determined. Clinical correlation is essential. Serum or plasma urea nitroge n measurement (mass/volume)Ordered By: ED PROVIDER on 10-11-2022 Urea nitrogen [Mass/Vol] 16 mg/dL 7-18 [facility] Thin prep Papanicolaou smear with manual screeningOrdered By: ED PROVIDER on 10-11-2022 Thin prep Papanicolaou smear with manual screening 4 5-15 [facility] Absolute lymphocyte countOrd ered By: Dr. Juan on 10-01-2022 Lymphocytes Auto (Unsp spec) [#/Vol] 1.06 10*3/uL 0.83-4.51 [facility] Basophil percentageOrdered B y: Dr. Juan on 10-01-2022 Basophils/100 WBC (Bld) 0.4 % 0-1 [facility] Chloride [Moles/Vol] 106 mmol/L 98-107 [facility] Eosinophils/100 WBC (Bld) 1.4 % 0-5 [facility] Glucose [Mass/Vol] 177 mg/dL 74-106 [facility] Comment on above: Fasting Glucose resu lt greater than or equal to 126 mg/dL suggests DIABETES MELLITUS per A.D.A. criteria. Neutrophils (Bld) [#/Vol] 4.1 10*3/uL 2.0-7.7 [facility] Neutrophils/100 WBC (Bld) 71.6 % 47-70 [facility] Potassium [Moles/Vol] 4.0 mmol/L 3.5-5.1 [facility] Sodium [Moles/Vol] 140 mmol/L 136-145 [facility] WBC (Bld) [#/Vol] 5.7 10*3/uL 4.4-11.0 [facility] Blood erythrocytes count (nu mber/volume)Ordered By: Dr. Juan on 10-01-2022 RBC (Bld) [#/Vol] 4.28 10*6/uL 4.2-5.4 [facility] Blood hemoglobin measurement (mass/volume)Ordered By: Dr. Juan on 10-01-2022 Hemoglobin (Bld) [Mass/Vol] 12.9 g/dL 12.0-15.0 [facility] Blood lymphocytes/100 leukoc ytesOrdered By: Dr. Juan on 10-01-2022 Lymphocytes/100 WBC (Bld) 18.8 % 19-41 [facility] Blood monocytes/100 leukocyt esOrdered By: Dr. Juan on 10-01-2022 Monocytes/100 WBC (Bld) 7.8 % 0-10 [facility] Blood platelet mean volumeOr dered By: Dr. Juan on 10-01-2022 Platelet mean volume (Bld) [Entitic vol] 12.0 fL 6.2-12.0 [facility] Determination of erythrocyte mean corpuscular volume (MCV)Ordered By: Dr. Juan on 10-01-2022 MCV (RBC) [Entitic vol] 95.1 fL 81-99 [facility] Hematocrit Auto (Bld) [Volum e fraction]Ordered By: Dr. Juan on 10-01-2022 Hematocrit (Bld) [Volume fraction] 40.7 % 37-47 [facility] Laboratory - Chemistry and C hemistry - challengeOrdered By: Dr. Juan on 10-01-2022 CO2 [Moles/Vol] 28.0 mmol/L 21.0-32.0 [facility] Urea nitrogen/Creatinine [Mass ratio] 25.3 mg/mg 10-20 [facility] - Hematology and Cell countsOrdered By: Dr. Juan on 10-01-2022 Erythrocyte distribution width (RBC) [Entitic vol] 46.5 fL 35.1-43.9 [facility] Erythrocyte distribution width (RBC) [Ratio] 13.3 % 11.6-14.6 [facility] Immature granulocytes/100 WBC (Bld) 0.000 % 0.0-0.9 [facility] Comment on above: IG% - Immature Granu locytes (promyelocytes, myelocytes and metamyelocytes) > 1% indicates that a LEFT SHIFT is Present. MCH (RBC) [Entitic mass] 30.1 pg 27.0-32.0 [facility] Nucleated RBC/100 WBC (Bld) [Ratio] 0 % 0-5 [facility] MCHC Auto (RBC) [Mass/Vol]Or dered By: Dr. Juan on 10-01-2022 MCHC (RBC) [Mass/Vol] 31.7 g/dL 32-36 [facility] No Panel InformationOrdered By: Dr. Juan on 10-01-2022 Estimated Creatinine Clearance Calc 49.24 ml/min [facility] Estimated GFR (MDRD) Amer 91 mL/min >60 [facility] Comment on above: GFR Calc Estimated GFR (MDRD) Non-Af Amer 75 mL/min >60 [facility] Comment on above: Non- GFR Calc Troponin I High Sensitivity 9 pg/mL 3.0-54.0 [facility] Comment on above: Please Note: New Mariajose t Units and Gender Specific Reference Ranges. For more information see Policy Stat Procedure [place] High Sensitivity Troponin (TNIH) and attachments. Platelets bldOrdered By: Dr. Juan on 10-01-2022 Platelets (Bld) [#/Vol] 201 10*3/uL 150-450 [facility] Serum or plasma calcium zora urement (mass/volume)Ordered By: Dr. Juan on 10-01-2022 Calcium [Mass/Vol] 9.4 mg/dL 8.5-10.1 [facility] Serum or plasma creatinine m easurement (mass/volume)Ordered By: Dr. Juan on 10-01-2022 Creatinine [Mass/Vol] 0.79 mg/dL 0.55-1.02 [facility] Comment on above: The validity of the calculated GFR & GFRAA in patients over 70 years has not been determined. Clinical correlation is essential. Serum or plasma urea nitroge n measurement (mass/volume)Ordered By: Dr. Juan on 10-01-2022 Urea nitrogen [Mass/Vol] 20 mg/dL 7-18 [facility] Thin prep Papanicolaou smear with manual screeningOrdered By: Dr. Juan on 10-01-2022 Thin prep Papanicolaou smear with manual screening 6 5-15 [facility] Culture, urineOrdered By: Dr Altaf Kessler on 08-05-2022 Bacteria identified Cx Nom (U) Enterococcus avium [facility] Bacteria identified Cx Nom (U) Enterococcus faecalis [facility] Bacteria identified Cx Nom (U) Staphylococcus lentus [facility] Absolute lymphocyte countOrd ered By: Dr. Herring on 08-02-2022 Lymphocytes Auto (Unsp spec) [#/Vol] 0.56 10*3/uL 0.83-4.51 [facility] Basophil percentageOrdered B y: Dr. Herring on 08-02-2022 Basophil percentage 2.4 mg/dL 2.5-4.9 [facility] Basophils/100 WBC (Bld) 0.2 % 0-1 [facility] Chloride [Moles/Vol] 101 mmol/L 98-107 [facility] Eosinophils/100 WBC (Bld) 0.4 % 0-5 [facility] Glucose [Mass/Vol] 217 mg/dL 74-106 [facility] Comment on above: Glucose result great er than or equal to 200 mg/dLsuggests DIABETES MELLITUS per A.D.A. criteria. Neutrophils (Bld) [#/Vol] 4.0 10*3/uL 2.0-7.7 [facility] Neutrophils/100 WBC (Bld) 79.8 % 47-70 [facility] Potassium [Moles/Vol] 3.7 mmol/L 3.5-5.1 [facility] Sodium [Moles/Vol] 137 mmol/L 136-145 [facility] WBC (Bld) [#/Vol] 5.1 10*3/uL 4.4-11.0 [facility] Blood erythrocytes count (nu mber/volume)Ordered By: Dr. Herring on 08-02-2022 RBC (Bld) [#/Vol] 3.95 10*6/uL 4.2-5.4 [facility] Blood hemoglobin measurement (mass/volume)Ordered By: Dr. Herring on 08-02-2022 Hemoglobin (Bld) [Mass/Vol] 11.6 g/dL 12.0-15.0 [facility] Blood lymphocytes/100 leukoc ytesOrdered By: Dr. Herring on 08-02-2022 Lymphocytes/100 WBC (Bld) 11.1 % 19-41 [facility] Blood monocytes/100 leukocyt esOrdered By: Dr. Herring on 08-02-2022 Monocytes/100 WBC (Bld) 8.1 % 0-10 [facility] Blood platelet mean volumeOr dered By: Dr. Herring on 08-02-2022 Platelet mean volume (Bld) [Entitic vol] 12.6 fL 6.2-12.0 [facility] Determination of erythrocyte mean corpuscular volume (MCV)Ordered By: Dr. Herring on 08-02-2022 MCV (RBC) [Entitic vol] 92.2 fL 81-99 [facility] Glucose Glucometer (BldC) [M ass/Vol]Ordered By: Dr. Escalera on 08-02-2022 Glucose [Mass/Vol] 286 mg/dL 74-106 [facility] Comment on above: MANAGEMENT OF PATIEN T CARE PER NURSING PROTOCOL Hematocrit Auto (Bld) [Volum e fraction]Ordered By: Dr. Herring on 08-02-2022 Hematocrit (Bld) [Volume fraction] 36.4 % 37-47 [facility] - Chemistry and C hemistry - challengeOrdered By: Dr. Herring on 08-02-2022 CO2 [Moles/Vol] 26.0 mmol/L 21.0-32.0 [facility] Magnesium [Mass/Vol] 1.7 mg/dL 1.6-2.6 [facility] Urea nitrogen/Creatinine [Mass ratio] 13.5 mg/mg 10-20 [facility] - Hematology and Cell countsOrdered By: Dr. Herring on 08-02-2022 Erythrocyte distribution width (RBC) [Entitic vol] 43.3 fL 35.1-43.9 [facility] Erythrocyte distribution width (RBC) [Ratio] 12.9 % 11.6-14.6 [facility] Immature granulocytes/100 WBC (Bld) 0.400 % 0.0-0.9 [facility] Comment on above: IG% - Immature Granu locytes (promyelocytes, myelocytes and metamyelocytes) > 1% indicates that a LEFT SHIFT is Present. MCH (RBC) [Entitic mass] 29.4 pg 27.0-32.0 [facility] Nucleated RBC/100 WBC (Bld) [Ratio] 0.6 % 0-5 [facility] MCHC Auto (RBC) [Mass/Vol]Or dered By: Dr. Herring on 08-02-2022 MCHC (RBC) [Mass/Vol] 31.9 g/dL 32-36 [facility] No Panel InformationOrdered By: Dr. Herring on 08-02-2022 Estimated Creatinine Clearance Calc 49.24 ml/min [facility] Estimated GFR (MDRD) Amer 111 mL/min >60 [facility] Comment on above: GFR Calc Estimated GFR (MDRD) Non-Af Amer 92 mL/min >60 [facility] Comment on above: Non- GFR Calc Platelets bldOrdered By: Dr. Herring on 08-02-2022 Platelets (Bld) [#/Vol] 158 10*3/uL 150-450 [facility] Serum or plasma calcium zora urement (mass/volume)Ordered By: Dr. Herring on 08-02-2022 Calcium [Mass/Vol] 8.0 mg/dL 8.5-10.1 [facility] Serum or plasma creatinine m easurement (mass/volume)Ordered By: Dr. Herring on 08-02-2022 Creatinine [Mass/Vol] 0.66 mg/dL 0.55-1.02 [facility] Comment on above: The validity of the calculated GFR & GFRAA in patients over 70 years has not been determined. Clinical correlation is essential. Serum or plasma urea nitroge n measurement (mass/volume)Ordered By: Dr. Herring on 08-02-2022 Urea nitrogen [Mass/Vol] 9 mg/dL 7-18 [facility] Thin prep Papanicolaou smear with manual screeningOrdered By: Dr. Herring on 08-02-2022 Thin prep Papanicolaou smear with manual screening 10 5-15 [facility] Absolute lymphocyte counton 07-31-2022 Lymphocytes Auto (Unsp spec) [#/Vol] 0.65 10*3/uL 0.83-4.51 [facility] Work Phone: Amorphous sediment detection in urine sediment by light microscopyOrdered By: ED PROVIDER on 07-31-2022 Amorphous sediment LM Ql (Urine sed) 1+ URATE [facility] Basophil percentageOrdered B y: ED PROVIDER on 07-31-2022 Basophil percentage 5-10 SEEN /hpf 0-5 [facility] Bilirubin [Mass/Vol] 1.30 mg/dL 0.20-1.00 [facility] Comment on above: For patients on eltr ombopag therapy, use of Dimension [place] TBIL is not recommended. Protein [Mass/Vol] 7.0 g/dL 6.4-8.2 [facility] Basophil percentageOrdered B y: Dr. Kessler on 07-31-2022 Lactate [Moles/Vol] 1.5 mmol/L 0.4-2.0 [facility] Basophil percentageon 2022 Basophils/100 WBC (Bld) 0.1 % 0-1 [facility] Work Phone: Chloride [Moles/Vol] 100 mmol/L 98-107 [facility] Work Phone: Eosinophils/100 WBC (Bld) 0.0 % 0-5 [facility] Work Phone: Glucose [Mass/Vol] 113 mg/dL 74-106 [facility] Work Phone: Comment on above: Fasting Glucose resu lt from 100 to 125 mg/dL suggests IMPAIRED HOMEOSTASIS per A.D.A. criteria. Neutrophils (Bld) [#/Vol] 6.5 10*3/uL 2.0-7.7 [facility] Work Phone: [phone] Neutrophils/100 WBC (Bld) 86.7 % 47-70 [facility] Work Phone: [phone] Potassium [Moles/Vol] 3.9 mmol/L 3.5-5.1 [facility] Work Phone: [phone] Sodium [Moles/Vol] 135 mmol/L 136-145 [facility] Work Phone: WBC (Bld) [#/Vol] 7.5 10*3/uL 4.4-11.0 [facility] Work Phone: Bilirubin Test strip Ql (U)O rdered By: ED PROVIDER on 07-31-2022 Bilirubin Ql (U) 1 mg/dL Negative [facility] Comment on above: COLOR OF URINE MAY A FFECT DIPSTICK RESULTS. Blood erythrocytes count (nu mber/volume)on 07-31-2022 RBC (Bld) [#/Vol] 4.69 10*6/uL 4.2-5.4 [facility] Work Phone: Blood hemoglobin measurement (mass/volume)on 07-31-2022 Hemoglobin (Bld) [Mass/Vol] 13.8 g/dL 12.0-15.0 [facility] Work Phone: Blood lymphocytes/100 leukoc yteson 07-31-2022 Lymphocytes/100 WBC (Bld) 8.7 % 19-41 [facility] Work Phone: Blood monocytes/100 leukocyt eson 07-31-2022 Monocytes/100 WBC (Bld) 4.4 % 0-10 [facility] Work Phone: Blood platelet mean volumeon 07-31-2022 Platelet mean volume (Bld) [Entitic vol] 12.3 fL 6.2-12.0 [facility] Work Phone: Determination of erythrocyte mean corpuscular volume (MCV)on 07-31-2022 MCV (RBC) [Entitic vol] 91.5 fL 81-99 [facility] Work Phone: Glucose Glucometer (BldC) [M ass/Vol]on 07-31-2022 Glucose [Mass/Vol] 121 mg/dL 74-106 [facility] Work Phone: Comment on above: MANAGEMENT OF PATIEN T CARE PER NURSING PROTOCOL Hematocrit Auto (Bld) [Volum e fraction]on 07-31-2022 Hematocrit (Bld) [Volume fraction] 42.9 % 37-47 [facility] Work Phone: Influenza virus A and B and SARS-CoV-2 (COVID-19) Ag panel - Upper respiratory specimOrdered By: Dr. Kessler on 07-31-2022 SARS-CoV-2 & FLU Antigen (Rapid) SARS-CoV-2 (COVID 19) [facility] Ketones Test strip Ql (U)Ord ered By: ED PROVIDER on 07-31-2022 Ketones Ql (U) 15 mg/dl Negative [facility] Laboratory - Chemistry and C hemistry - challengeOrdered By: ED PROVIDER on 07-31-2022 ALP [Catalytic activity/Vol] 71 U/L 45-117 [facility] ALT [Catalytic activity/Vol] 26 U/L 13-56 [facility] Globulin (S) [Mass/Vol] 4.2 g/dL 2.2-4.2 [facility] Laboratory - Chemistry and C hemistry - challengeon 07-31-2022 CO2 [Moles/Vol] 29.0 mmol/L 21.0-32.0 [facility] Work Phone: Urea nitrogen/Creatinine [Mass ratio] 17.2 mg/mg 10-20 [facility] Work Phone: Laboratory - Hematology and Cell countson 07-31-2022 Erythrocyte distribution width (RBC) [Entitic vol] 41.3 fL 35.1-43.9 [facility] Work Phone: Erythrocyte distribution width (RBC) [Ratio] 12.7 % 11.6-14.6 [facility] Work Phone: Immature granulocytes/100 WBC (Bld) 0.100 % 0.0-0.9 [facility] Work Phone: Comment on above: IG% - Immature Granu locytes (promyelocytes, myelocytes and metamyelocytes) > 1% indicates that a LEFT SHIFT is Present. MCH (RBC) [Entitic mass] 29.4 pg 27.0-32.0 [facility] Work Phone: Nucleated RBC/100 WBC (Bld) [Ratio] 0 % 0-5 [facility] Work Phone: MCHC Auto (RBC) [Mass/Vol]on 07-31-2022 MCHC (RBC) [Mass/Vol] 32.2 g/dL 32-36 [facility] Work Phone: Mucus LM Ql (Urine sed)Order ed By: ED PROVIDER on 07-31-2022 Mucus Ql (Urine sed) 0 SEEN /hpf [facility] Nitrite Test strip Ql (U)Ord ered By: ED PROVIDER on 07-31-2022 Nitrite Ql (U) Negative Negative [facility] No Panel Informationon 07-31 Estimated Creatinine Clearance Calc 49.73 ml/min [facility] Work Phone: Estimated GFR (MDRD) Amer 70 mL/min >60 [facility] Work Phone: Comment on above: GFR Calc Estimated GFR (MDRD) Non-Af Amer 58 mL/min >60 [facility] Work Phone: Comment on above: Non- GFR Calc Platelets bldon 07-31-2022 Platelets (Bld) [#/Vol] 187 10*3/uL 150-450 [facility] Work Phone: Protein Test strip Ql (U)Ord ered By: ED PROVIDER on 07-31-2022 Protein Ql (U) 15 mg/dl Negative [facility] Serum or plasma albumin zora urement (mass/volume)Ordered By: ED PROVIDER on 07-31-2022 Albumin [Mass/Vol] 2.8 g/dL 3.2-5.0 [facility] Serum or plasma albumin/glob ulin mass ratioOrdered By: ED PROVIDER on 07-31-2022 Albumin/Globulin [Mass ratio] 0.7 {ratio} 0.9-2.4 [facility] Serum or plasma calcium zora urement (mass/volume)on 07-31-2022 Calcium [Mass/Vol] 8.5 mg/dL 8.5-10.1 [facility] Work Phone: Serum or plasma creatinine m easurement (mass/volume)on 07-31-2022 Creatinine [Mass/Vol] 0.99 mg/dL 0.55-1.02 [facility] Work Phone: Comment on above: The validity of the calculated GFR & GFRAA in patients over 70 years has not been determined. Clinical correlation is essential. Serum or plasma urea nitroge n measurement (mass/volume)on 07-31-2022 Urea nitrogen [Mass/Vol] 17 mg/dL 7-18 [facility] Work Phone: Squamous epithelial cells de tection in urine sediment by light microscopyOrdered By: ED PROVIDER on 07-31-2022 Epithelial cells.squamous LM Ql (Urine sed) 0-5 SEEN /hpf 5-10 [facility] Thin prep Papanicolaou smear with manual screeningOrdered By: ED PROVIDER on 07-31-2022 Thin prep Papanicolaou smear with manual screening 24 U/L 15-37 [facility] Thin prep Papanicolaou smear with manual screeningon 07-31-2022 Thin prep Papanicolaou smear with manual screening 6 5-15 [facility] Work Phone: Urine blood detectionOrdered By: ED PROVIDER on 07-31-2022 RBC Ql (U) Negative Negative [facility] RBC Ql (U) 0 SEEN /hpf 0-5 [facility] Urine clarityOrdered By: ED PROVIDER on 07-31-2022 Clarity (U) Sl. Cloudy Clear [facility] Urine color determinationOrd ered By: ED PROVIDER on 07-31-2022 Color (U) Yellow Yellow [facility] Urine glucose detectionOrder ed By: ED PROVIDER on 07-31-2022 Glucose Ql (U) Normal mg/dl Normal [facility] Urine leukocyte esterase det ection by dipstickOrdered By: ED PROVIDER on 07-31-2022 Leukocyte esterase Test strip Ql (U) 100 /ul Negative [facility] Urine pHOrdered By: ED PROVI KAYE on 07-31-2022 pH (U) 6.0 [pH] 5.0 - 8.0 [facility] Urine sediment bacteria coun t by microscopy (number/high power field)Ordered By: ED PROVIDER on 07-31-2022 Bacteria LM.HPF (Urine sed) [#/Area] 0 /[HPF] None Seen [facility] Urine specific gravity measu rementOrdered By: ED PROVIDER on 07-31-2022 Specific gravity (U) [Rel density] 1.015 1.002-1.030 [facility] Urobilinogen Auto test strip Ql (U)Ordered By: ED PROVIDER on 07-31-2022 Urobilinogen Ql (U) 4 mg/dl Normal [facility] Absolute lymphocyte countOrd ered By: Dr. Garcia on 07-24-2022 Lymphocytes Auto (Unsp spec) [#/Vol] 0.75 10*3/uL 0.83-4.51 [facility] Basophil percentageOrdered B y: Dr. Garcia on 07-24-2022 Basophils/100 WBC (Bld) 0.1 % 0-1 [facility] Bilirubin [Mass/Vol] 0.60 mg/dL 0.20-1.00 [facility] Comment on above: For patients on eltr ombopag therapy, use of Dimension [place] TBIL is not recommended. Chloride [Moles/Vol] 103 mmol/L 98-107 [facility] Eosinophils/100 WBC (Bld) 0.0 % 0-5 [facility] Glucose [Mass/Vol] 164 mg/dL 74-106 [facility] Comment on above: Fasting Glucose resu lt greater than or equal to 126 mg/dL suggests DIABETES MELLITUS per A.D.A. criteria. Neutrophils (Bld) [#/Vol] 7.0 10*3/uL 2.0-7.7 [facility] Neutrophils/100 WBC (Bld) 83.8 % 47-70 [facility] Potassium [Moles/Vol] 3.6 mmol/L 3.5-5.1 [facility] Protein [Mass/Vol] 5.9 g/dL 6.4-8.2 [facility] Sodium [Moles/Vol] 137 mmol/L 136-145 [facility] WBC (Bld) [#/Vol] 8.3 10*3/uL 4.4-11.0 [facility] Blood erythrocytes count (nu mber/volume)Ordered By: Dr. Garcia on 07-24-2022 RBC (Bld) [#/Vol] 4.26 10*6/uL 4.2-5.4 [facility] Blood hemoglobin measurement (mass/volume)Ordered By: Dr. Garcia on 07-24-2022 Hemoglobin (Bld) [Mass/Vol] 13.1 g/dL 12.0-15.0 [facility] Blood lymphocytes/100 leukoc ytesOrdered By: Dr. Garcia on 07-24-2022 Lymphocytes/100 WBC (Bld) 9.0 % 19-41 [facility] Blood monocytes/100 leukocyt esOrdered By: Dr. Garcia on 07-24-2022 Monocytes/100 WBC (Bld) 6.7 % 0-10 [facility] Blood platelet mean volumeOr dered By: Dr. Garcia on 07-24-2022 Platelet mean volume (Bld) [Entitic vol] 11.8 fL 6.2-12.0 [facility] Determination of erythrocyte mean corpuscular volume (MCV)Ordered By: Dr. Garcia on 07-24-2022 MCV (RBC) [Entitic vol] 94.6 fL 81-99 [facility] Glucose Glucometer (BldC) [M ass/Vol]Ordered By: Dr. Garcia on 07-24-2022 Glucose [Mass/Vol] 64 mg/dL 74-106 [facility] Comment on above: MANAGEMENT OF PATIEN T CARE PER NURSING PROTOCOL Glucose Glucometer (BldC) [M ass/Vol]on 07-24-2022 Glucose [Mass/Vol] 135 mg/dL 74-106 [facility] Work Phone: Comment on above: MANAGEMENT OF PATIEN T CARE PER NURSING PROTOCOL Hematocrit Auto (Bld) [Volum e fraction]Ordered By: Dr. Garcia on 07-24-2022 Hematocrit (Bld) [Volume fraction] 40.3 % 37-47 [facility] Laboratory - Chemistry and C hemistry - challengeOrdered By: Dr. Garcia on 07-24-2022 ALP [Catalytic activity/Vol] 63 U/L 45-117 [facility] ALT [Catalytic activity/Vol] 35 U/L 13-56 [facility] CO2 [Moles/Vol] 26.0 mmol/L 21.0-32.0 [facility] Globulin (S) [Mass/Vol] 3.8 g/dL 2.2-4.2 [facility] Urea nitrogen/Creatinine [Mass ratio] 23.8 mg/mg 10-20 [facility] Laboratory - Hematology and Cell countsOrdered By: Dr. Garcia on 07-24-2022 Erythrocyte distribution width (RBC) [Entitic vol] 44.2 fL 35.1-43.9 [facility] Erythrocyte distribution width (RBC) [Ratio] 12.8 % 11.6-14.6 [facility] Immature granulocytes/100 WBC (Bld) 0.400 % 0.0-0.9 [facility] Comment on above: IG% - Immature Granu locytes (promyelocytes, myelocytes and metamyelocytes) > 1% indicates that a LEFT SHIFT is Present. MCH (RBC) [Entitic mass] 30.8 pg 27.0-32.0 [facility] Nucleated RBC/100 WBC (Bld) [Ratio] 0 % 0-5 [facility] MCHC Auto (RBC) [Mass/Vol]Or dered By: Dr. Garcia on 07-24-2022 MCHC (RBC) [Mass/Vol] 32.5 g/dL 32-36 [facility] No Panel InformationOrdered By: Dr. Garcia on 07-24-2022 Estimated Creatinine Clearance Calc 59.54 ml/min [facility] Estimated GFR (MDRD) Amer 84 mL/min >60 [facility] Comment on above: GFR Calc Estimated GFR (MDRD) Non-Af Amer 70 mL/min >60 [facility] Comment on above: Non- GFR Calc Platelets bldOrdered By: Dr. Garcia on 07-24-2022 Platelets (Bld) [#/Vol] 243 10*3/uL 150-450 [facility] Serum or plasma albumin zora urement (mass/volume)Ordered By: Dr. Garcia on 07-24-2022 Albumin [Mass/Vol] 2.1 g/dL 3.2-5.0 [facility] Serum or plasma albumin/glob ulin mass ratioOrdered By: Dr. Garcia on 07-24-2022 Albumin/Globulin [Mass ratio] 0.6 {ratio} 0.9-2.4 [facility] Serum or plasma calcium zora urement (mass/volume)Ordered By: Dr. Garcia on 07-24-2022 Calcium [Mass/Vol] 8.8 mg/dL 8.5-10.1 [facility] Serum or plasma creatinine m easurement (mass/volume)Ordered By: Dr. Garcia on 07-24-2022 Creatinine [Mass/Vol] 0.84 mg/dL 0.55-1.02 [facility] Comment on above: The validity of the calculated GFR & GFRAA in patients over 70 years has not been determined. Clinical correlation is essential. Serum or plasma urea nitroge n measurement (mass/volume)Ordered By: Dr. Garcia on 07-24-2022 Urea nitrogen [Mass/Vol] 20 mg/dL 7-18 [facility] Thin prep Papanicolaou smear with manual screeningOrdered By: Dr. Garcia on 07-24-2022 Thin prep Papanicolaou smear with manual screening 26 U/L 15-37 [facility] Thin prep Papanicolaou smear with manual screening 8 5-15 [facility] Blood manual differential co mment interpretation (narrative result)Ordered By: Dr. Garcia on 07-23-2022 Manual differential comment Ferny (Bld) [Interp] SCANNED [facility] Comment on above: LYMPHOPENIA NOTED Laboratory - Microbiology an d Antimicrobial susceptibilityOrdered By: Dr. Castillo on 07-23-2022 Bacteria identified Cx Nom (Bld) No growth in 5 days. [facility] Bacteria identified Cx Nom (Bld) No growth in 5 days. [facility] Laboratory - Microbiology an d Antimicrobial susceptibilityOrdered By: Dr. Garcia on 07-22-2022 SARS-CoV-2 (COVID-19) RNA RAYMOND+probe Ql (Unsp spec) Detected Not Detect [facility] Comment on above: Normal Reference Ran ge: Not DetectedMethod:(RT-PCR) real-time reverse transcriptase PCRLuminex Cluster Labs Instrument*The Food and Drug Administration (FDA) has issued an Emergency Use Authorization (EAU) for the MARIAM SARS-CoV-2 Assay for the rapid detection of the virus that causes COVID-19. This test has been validated, but the FDAs independent review of this validation is pending.*Negative results do not preclude infection and should not be used as the sole basis for treatment or patient management. Optimum specimen types and timing for peak viral levels during infections caused by SARS-CoV-2 have not been determined. Collection of multiple specimens from the same patient may be necessary to detect the virus. The possibility of a false negative result should be considered if the patient has clinical presentation or has had recent exposure. SARS-CoV-2 (COVID-19) Ag IA. rapid Ql (Resp)Ordered By: Dr. Garcia on 07-22-2022 SARS-CoV-2 Antigen (Rapid) SARS-CoV-2 (COVID 19) [facility] Assessment of wrist artery p atency prior to arterial punctureOrdered By: Dr. Castillo on 07-18-2022 Arterial patency Wrist artery --pre arterial puncture Positive [facility] Base excessOrdered By: Dr. Juanita pelaez on 07-18-2022 Base excess Calc (BldV) [Moles/Vol] 8 mmol/L -2-2 [facility] Basophil percentageOrdered B y: Dr. Castillo on 07-18-2022 Basophil percentage 32.4 mmol/L 22-26 [facility] Basophils/100 WBC (Bld) 94 % 95-99 [facility] CO2 (BldA) [Partial pressure ]Ordered By: Dr. Castillo on 07-18-2022 CO2 (Bld) [Partial pressure] 47.5 mm[Hg] 35-45 [facility] No Panel InformationOrdered By: Dr. Sandoval on 07-18-2022 Methicillin-Resist S.aureus DNA PCR Negative Negative [facility] Streptococcus pneumoniae Antigen (M [facility] No Panel InformationOrdered By: Dr. Castillo on 07-18-2022 Blood Gas Liter Flow 4.0 /min [facility] Blood Gas Sample Site R Radial [facility] Blood Gas Specimen Type ART [facility] Blood Gas Total CO2 34 mmol/L [facility] Oxygen Delivery Device Cannula [facility] Oxygen (BldA) [Partial press ure]Ordered By: Dr. Castillo on 07-18-2022 Oxygen (Bld) [Partial pressure] 68 mmHG 75-100 [facility] pH measurementOrdered By: Dr Altaf Castillo on 07-18-2022 pH (Unsp spec) 7.44 [pH] 7.35-7.45 [facility] Basophil percentageOrdered B y: Dr. Castillo on 07-17-2022 Lactate [Moles/Vol] 1.2 mmol/L 0.4-2.0 [facility] Culture, urineOrdered By: Dr Altaf Torres on 07-15-2022 Bacteria identified Cx Nom (U) Positive [facility] Glucose Glucometer (dC) [M ass/Vol]Ordered By: Dr. Escobedo on 07-14-2022 Glucose [Mass/Vol] 185 mg/dL 74-106 [facility] Comment on above: MANAGEMENT OF PATIEN T CARE PER NURSING PROTOCOL Basophil percentageOrdered B y: Dr. Torres on 07-13-2022 Basophil percentage 5-10 SEEN /hpf 0-5 [facility] Bilirubin Test strip Ql (U)O rdered By: Dr. Torres on 07-13-2022 Bilirubin Ql (U) Negative Negative [facility] Ketones Test strip Ql (U)Ord ered By: Dr. Torres on 07-13-2022 Ketones Ql (U) 5 mg/dl Negative [facility] Microbial respiratory cultur eOrdered By: Dr. Herring on 07-13-2022 Bacteria identified Respiratory culture Nom (Unsp spec) or Staphylococcus aureus isolated. [facility] Mucus LM Ql (Urine sed)Order ed By: Dr. Torres on 07-13-2022 Mucus Ql (Urine sed) 0 SEEN /hpf [facility] Nitrite Test strip Ql (U)Ord ered By: Dr. Torres on 07-13-2022 Nitrite Ql (U) Negative Negative [facility] Protein Test strip Ql (U)Ord ered By: Dr. Torres on 07-13-2022 Protein Ql (U) 15 mg/dl Negative [facility] Squamous epithelial cells de tection in urine sediment by light microscopyOrdered By: Dr. Torres on 07-13-2022 Epithelial cells.squamous LM Ql (Urine sed) 0 SEEN /hpf 5-10 [facility] Urine blood detectionOrdered By: Dr. Torres on 07-13-2022 RBC Ql (U) Negative Negative [facility] RBC Ql (U) 0 SEEN /hpf 0-5 [facility] Urine clarityOrdered By: Dr. Torres on 07-13-2022 Clarity (U) Clear Clear [facility] Urine color determinationOrd ered By: Dr. Torres on 07-13-2022 Color (U) Yellow Yellow [facility] Urine glucose detectionOrder ed By: Dr. Torres on 07-13-2022 Glucose Ql (U) Normal mg/dl Normal [facility] Urine leukocyte esterase det ection by dipstickOrdered By: Dr. Torres on 07-13-2022 Leukocyte esterase Test strip Ql (U) 100 /ul Negative [facility] Urine pHOrdered By: Dr. Fela rabago on 07-13-2022 pH (U) 6.0 [pH] 5.0 - 8.0 [facility] Urine sediment bacteria coun t by microscopy (number/high power field)Ordered By: Dr. Torres on 07-13-2022 Bacteria LM.HPF (Urine sed) [#/Area] 1 /[HPF] None Seen [facility] Urine specific gravity measu rementOrdered By: Dr. Torres on 07-13-2022 Specific gravity (U) [Rel density] 1.020 1.002-1.030 [facility] Urobilinogen Auto test strip Ql (U)Ordered By: Dr. Torres on 07-13-2022 Urobilinogen Ql (U) Normal mg/dl Normal [facility] Gram stain for investigation of transfusion reactionOrdered By: Dr. Herring on 07-12-2022 Microscopic observation Gram stain Nom (Unsp spec) [facility] Absolute lymphocyte countOrd ered By: Dr. Herring on 07-11-2022 Lymphocytes Auto (Unsp spec) [#/Vol] 0.31 10*3/uL 0.83-4.51 [facility] Basophil percentageOrdered B y: Dr. Herring on 07-11-2022 Basophil percentage 2.7 mg/dL 2.5-4.9 [facility] Basophils/100 WBC (Bld) 0.0 % 0-1 [facility] Chloride [Moles/Vol] 103 mmol/L 98-107 [facility] Eosinophils/100 WBC (Bld) 0.0 % 0-5 [facility] Glucose [Mass/Vol] 418 mg/dL 74-106 [facility] Comment on above: Glucose result great er than or equal to 200 mg/dLsuggests DIABETES MELLITUS per A.D.A. criteria. Neutrophils (Bld) [#/Vol] 3.6 10*3/uL 2.0-7.7 [facility] Neutrophils/100 WBC (Bld) 88.0 % 47-70 [facility] Potassium [Moles/Vol] 3.9 mmol/L 3.5-5.1 [facility] Sodium [Moles/Vol] 136 mmol/L 136-145 [facility] WBC (Bld) [#/Vol] 4.1 10*3/uL 4.4-11.0 [facility] Blood erythrocytes count (nu mber/volume)Ordered By: Dr. Herring on 07-11-2022 RBC (Bld) [#/Vol] 4.11 10*6/uL 4.2-5.4 [facility] Blood hemoglobin measurement (mass/volume)Ordered By: Dr. Herring on 07-11-2022 Hemoglobin (Bld) [Mass/Vol] 12.0 g/dL 12.0-15.0 [facility] Blood lymphocytes/100 leukoc ytesOrdered By: Dr. Herring on 07-11-2022 Lymphocytes/100 WBC (Bld) 7.6 % 19-41 [facility] Blood monocytes/100 leukocyt esOrdered By: Dr. Herring on 07-11-2022 Monocytes/100 WBC (Bld) 4.2 % 0-10 [facility] Blood platelet mean volumeOr dered By: Dr. Herring on 07-11-2022 Platelet mean volume (Bld) [Entitic vol] 11.7 fL 6.2-12.0 [facility] Determination of erythrocyte mean corpuscular volume (MCV)Ordered By: Dr. Herring on 07-11-2022 MCV (RBC) [Entitic vol] 92.7 fL 81-99 [facility] Hematocrit Auto (Bld) [Volum e fraction]Ordered By: Dr. Herring on 07-11-2022 Hematocrit (Bld) [Volume fraction] 38.1 % 37-47 [facility] Laboratory - Chemistry and C hemistry - challengeOrdered By: Dr. Herring on 07-11-2022 CO2 [Moles/Vol] 26.0 mmol/L 21.0-32.0 [facility] Magnesium [Mass/Vol] 2.1 mg/dL 1.6-2.6 [facility] Urea nitrogen/Creatinine [Mass ratio] 27.0 mg/mg 10-20 [facility] Laboratory - Hematology and Cell countsOrdered By: Dr. Herring on 07-11-2022 Erythrocyte distribution width (RBC) [Entitic vol] 43.5 fL 35.1-43.9 [facility] Erythrocyte distribution width (RBC) [Ratio] 12.8 % 11.6-14.6 [facility] Immature granulocytes/100 WBC (Bld) 0.200 % 0.0-0.9 [facility] Comment on above: IG% - Immature Granu locytes (promyelocytes, myelocytes and metamyelocytes) > 1% indicates that a LEFT SHIFT is Present. MCH (RBC) [Entitic mass] 29.2 pg 27.0-32.0 [facility] Nucleated RBC/100 WBC (Bld) [Ratio] 0 % 0-5 [facility] MCHC Auto (RBC) [Mass/Vol]Or dered By: Dr. Herring on 07-11-2022 MCHC (RBC) [Mass/Vol] 31.5 g/dL 32-36 [facility] No Panel InformationOrdered By: Dr. Herring on 07-11-2022 Estimated Creatinine Clearance Calc 50.02 ml/min [facility] Estimated GFR (MDRD) Amer 69 mL/min >60 [facility] Comment on above: GFR Calc Estimated GFR (MDRD) Non-Af Amer 57 mL/min >60 [facility] Comment on above: Non- GFR Calc Platelets bldOrdered By: Dr. Herring on 07-11-2022 Platelets (Bld) [#/Vol] 177 10*3/uL 150-450 [facility] Review by pathologistOrdered By: Dr. Herring on 07-11-2022 Pathologist review Ferny (Unsp spec) [Interp] Reviewed [facility] Comment on above: Previous reported re sult: Trixie byrne Edited by: RGOOD on 07/13/22:1353 AMENDED REPORT 07/13/22 1353 PATH REV previously reported as: Trixie byrne Serum or plasma calcium zora urement (mass/volume)Ordered By: Dr. Herring on 07-11-2022 Calcium [Mass/Vol] 8.4 mg/dL 8.5-10.1 [facility] Serum or plasma creatinine m easurement (mass/volume)Ordered By: Dr. Herring on 07-11-2022 Creatinine [Mass/Vol] 1.00 mg/dL 0.55-1.02 [facility] Comment on above: The validity of the calculated GFR & GFRAA in patients over 70 years has not been determined. Clinical correlation is essential. Serum or plasma urea nitroge n measurement (mass/volume)Ordered By: Dr. Herring on 07-11-2022 Urea nitrogen [Mass/Vol] 27 mg/dL 7-18 [facility] Thin prep Papanicolaou smear with manual screeningOrdered By: Dr. Herring on 07-11-2022 Thin prep Papanicolaou smear with manual screening 7 5-15 [facility] Whole blood hemoglobin A1c/t otal hemoglobin ratio (mass fraction)Ordered By: Dr. Torres on 07-11-2022 HbA1c (Bld) [Mass fraction] 7.6 % 3.8-5.6 [facility] Comment on above: Normal < 5.7 % Predi abetic 5.7 - 6.4 % Diabetic >or= 6.5 % Please note range changes. Absolute lymphocyte counton 07-10-2022 Lymphocytes Auto (Unsp spec) [#/Vol] 0.35 10*3/uL 0.83-4.51 [facility] Work Phone: Basophil percentageon 2021 Basophils/100 WBC (Bld) 0.4 % 0-1 [facility] Work Phone: Chloride [Moles/Vol] 101 mmol/L 98-107 [facility] Work Phone: Eosinophils/100 WBC (Bld) 0.7 % 0-5 [facility] Work Phone: Glucose [Mass/Vol] 253 mg/dL 74-106 [facility] Work Phone: Comment on above: Glucose result great er than or equal to 200 mg/dLsuggests DIABETES MELLITUS per A.D.A. criteria. Neutrophils (Bld) [#/Vol] 4.6 10*3/uL 2.0-7.7 [facility] Work Phone: [phone] Neutrophils/100 WBC (Bld) 83.5 % 47-70 [facility] Work Phone: Potassium [Moles/Vol] 3.8 mmol/L 3.5-5.1 [facility] Work Phone: Sodium [Moles/Vol] 136 mmol/L 136-145 [facility] Work Phone: WBC (Bld) [#/Vol] 5.5 10*3/uL 4.4-11.0 [facility] [facility] Work [facility]: Blood erythrocytes count (nu mber/volume)on 07-10-2022 RBC (Bld) [#/Vol] 4.74 10*6/uL 4.2-5.4 [facility] Work Phone: Blood hemoglobin measurement (mass/volume)on 07-10-2022 Hemoglobin (Bld) [Mass/Vol] 13.8 g/dL 12.0-15.0 [facility] Work Phone: Blood lymphocytes/100 leukoc yteson 07-10-2022 Lymphocytes/100 WBC (Bld) 6.3 % 19-41 [facility] Work Phone: Blood manual differential co mment interpretation (narrative result)Ordered By: ED PROVIDER on 07-10-2022 Manual differential comment Ferny (Bld) [Interp] SCANNED [facility] Blood monocytes/100 leukocyt eson 07-10-2022 Monocytes/100 WBC (Bld) 8.7 % 0-10 [facility] Work Phone: Blood platelet mean volumeon 07-10-2022 Platelet mean volume (Bld) [Entitic vol] 11.6 fL 6.2-12.0 [facility] Work Phone: Determination of erythrocyte mean corpuscular volume (MCV)on 07-10-2022 MCV (RBC) [Entitic vol] 91.6 fL 81-99 [facility] Work Phone: Hematocrit Auto (Bld) [Volum e fraction]on 07-10-2022 Hematocrit (Bld) [Volume fraction] 43.4 % 37-47 [facility] Work Phone: Laboratory - Chemistry and C hemistry - challengeon 07-10-2022 CO2 [Moles/Vol] 27.0 mmol/L 21.0-32.0 [facility] Work Phone: Urea nitrogen/Creatinine [Mass ratio] 22.1 mg/mg 10-20 [facility] Work Phone: Laboratory - Hematology and Cell countson 07-10-2022 Erythrocyte distribution width (RBC) [Entitic vol] 42.4 fL 35.1-43.9 [facility] Work Phone: Erythrocyte distribution width (RBC) [Ratio] 12.6 % 11.6-14.6 [facility] Work Phone: Immature granulocytes/100 WBC (Bld) 0.400 % 0.0-0.9 [facility] Work Phone: Comment on above: IG% - Immature Granu locytes (promyelocytes, myelocytes and metamyelocytes) > 1% indicates that a LEFT SHIFT is Present. MCH (RBC) [Entitic mass] 29.1 pg 27.0-32.0 [facility] Work Phone: Nucleated RBC/100 WBC (Bld) [Ratio] 0 % 0-5 [facility] Work Phone: Laboratory - Microbiology an d Antimicrobial susceptibilityOrdered By: Dr. Herring on 07-10-2022 SARS-CoV-2 (COVID-19) RNA RAYMOND+probe Ql (Unsp spec) Not detected Not Detect [facility] Comment on above: Normal Reference Ran ge: Not DetectedMethod:(RT-PCR) real-time reverse transcriptase PCRLuminex MARIAM Instrument*The Food and Drug Administration (FDA) has issued an Emergency Use Authorization (EAU) for the MARIAM SARS-CoV-2 Assay for the rapid detection of the virus that causes COVID-19. This test has been validated, but the FDAs independent review of this validation is pending.*Negative results do not preclude infection and should not be used as the sole basis for treatment or patient management. Optimum specimen types and timing for peak viral levels during infections caused by SARS-CoV-2 have not been determined. Collection of multiple specimens from the same patient may be necessary to detect the virus. The possibility of a false negative result should be considered if the patient has clinical presentation or has had recent exposure. MCHC Auto (RBC) [Mass/Vol]on 07-10-2022 MCHC (RBC) [Mass/Vol] 31.8 g/dL 32-36 [facility] Work Phone: No Panel InformationOrdered By: Dr. Harvey on 07-10-2022 D-Dimer Quantitative (PE/DVT) 0.52 FEU/ug/m 0.27-0.49 [facility] Comment on above: D-Dimer ELEVATED (>0 .49): Additional studies and clinicalassessments are indicated to conclude diagnosis of:Deep Vein Thrombosis (DVT) or Pulmonary Embolism (PE)CRITICAL VALUE VERIFIED. CALLED TO FRANCHESCA MORRIS07/10/22 [id number] Hannah Beasley.RESULTS READ BACK BY SAME . Troponin I High Sensitivity 12 pg/mL 3.0-54.0 [facility] Comment on above: Please Note: New Mariajose t Units and Gender Specific Reference Ranges. For more information see Policy Stat Procedure [place] High Sensitivity Troponin (TNIH) and attachments. No Panel Informationon 07-10 Estimated Creatinine Clearance Calc 58.16 ml/min [facility] Work Phone: Estimated GFR (MDRD) Amer 82 mL/min >60 [facility] Work Phone: Comment on above: GFR Calc Estimated GFR (MDRD) Non-Af Amer 68 mL/min >60 [facility] Work Phone: Comment on above: Non- GFR Calc Platelets bldon 07-10-2022 Platelets (Bld) [#/Vol] 193 10*3/uL 150-450 [facility] Work Phone: Serum or plasma calcium zora urement (mass/volume)on 07-10-2022 Calcium [Mass/Vol] 8.8 mg/dL 8.5-10.1 [facility] Work Phone: Serum or plasma creatinine m easurement (mass/volume)on 07-10-2022 Creatinine [Mass/Vol] 0.86 mg/dL 0.55-1.02 [facility] Work Phone: Comment on above: The validity of the calculated GFR & GFRAA in patients over 70 years has not been determined. Clinical correlation is essential. Serum or plasma urea nitroge n measurement (mass/volume)on 07-10-2022 Urea nitrogen [Mass/Vol] 19 mg/dL 7-18 [facility] Work Phone: Thin prep Papanicolaou smear with manual screeningon 07-10-2022 Thin prep Papanicolaou smear with manual screening 8 5-15 [facility] Work Phone: Absolute lymphocyte counton 02-11-2022 Lymphocytes Auto (Unsp spec) [#/Vol] 0.98 10*3/uL 0.83-4.51 [facility] Work Phone: Basophil percentageon 2021 Basophils/100 WBC (Bld) 0.4 % 0-1 [facility] Work Phone: [phone] Chloride [Moles/Vol] 104 mmol/L 98-107 [facility] Work Phone: [phone] Eosinophils/100 WBC (Bld) 4.0 % 0-5 [facility] Work Phone: [phone] Glucose [Mass/Vol] 144 mg/dL 74-106 [facility] Work Phone: Comment on above: Fasting Glucose resu lt greater than or equal to 126 mg/dL suggests DIABETES MELLITUS per A.D.A. criteria. Neutrophils (Bld) [#/Vol] 5.3 10*3/uL 2.0-7.7 [facility] Work Phone: [phone] Neutrophils/100 WBC (Bld) 75.1 % 47-70 [facility] Work Phone: [phone] Potassium [Moles/Vol] 4.1 mmol/L 3.5-5.1 [facility] Work Phone: Sodium [Moles/Vol] 138 mmol/L 136-145 [facility] Work Phone: WBC (Bld) [#/Vol] 7.1 10*3/uL 4.4-11.0 [facility] Work Phone: [phone] Blood erythrocytes count (nu mber/volume)on 02-11-2022 RBC (Bld) [#/Vol] 4.54 10*6/uL 4.2-5.4 [facility] Work Phone: Blood hemoglobin measurement (mass/volume)on 02-11-2022 Hemoglobin (Bld) [Mass/Vol] 13.4 g/dL 12.0-15.0 [facility] Work Phone: Blood lymphocytes/100 leukoc yteson 02-11-2022 Lymphocytes/100 WBC (Bld) 13.9 % 19-41 [facility] Work Phone: Blood monocytes/100 leukocyt eson 02-11-2022 Monocytes/100 WBC (Bld) 6.5 % 0-10 [facility] Work Phone: Blood platelet mean volumeon 02-11-2022 Platelet mean volume (Bld) [Entitic vol] 11.6 fL 6.2-12.0 [facility] Work Phone: Determination of erythrocyte mean corpuscular volume (MCV)on 02-11-2022 MCV (RBC) [Entitic vol] 88.8 fL 81-99 [facility] Work Phone: Hematocrit Auto (Bld) [Volum e fraction]on 02-11-2022 Hematocrit (Bld) [Volume fraction] 40.3 % 37-47 [facility] Work Phone: Laboratory - Chemistry and C hemistry - challengeon 02-11-2022 CO2 [Moles/Vol] 30.0 mmol/L 21.0-32.0 [facility] Work Phone: Urea nitrogen/Creatinine [Mass ratio] 14.4 mg/mg 10-20 [facility] Work Phone: Laboratory - Hematology and Cell countson 02-11-2022 Erythrocyte distribution width (RBC) [Entitic vol] 41.5 fL 35.1-43.9 [facility] Work Phone: Erythrocyte distribution width (RBC) [Ratio] 12.7 % 11.6-14.6 [facility] Work Phone: Immature granulocytes/100 WBC (Bld) 0.100 % 0.0-0.9 [facility] Work Phone: Comment on above: IG% - Immature Granu locytes (promyelocytes, myelocytes and metamyelocytes) > 1% indicates that a LEFT SHIFT is Present. MCH (RBC) [Entitic mass] 29.5 pg 27.0-32.0 [facility] Work Phone: Nucleated RBC/100 WBC (Bld) [Ratio] 0 % 0-5 [facility] Work Phone: MCHC Auto (RBC) [Mass/Vol]on 02-11-2022 MCHC (RBC) [Mass/Vol] 33.3 g/dL 32-36 [facility] Work Phone: No Panel Informationon 02-11 Estimated Creatinine Clearance Calc 48.09 ml/min [facility] Work Phone: Estimated GFR (MDRD) Amer 66 mL/min >60 [facility] Work Phone: Comment on above: GFR Calc Estimated GFR (MDRD) Non-Af Amer 55 mL/min >60 [facility] Work Phone: Comment on above: Non- GFR Calc Thyroid Stimulating Hormone (TSH) 2.08 uIU/mL 0.358-3.74 [facility] Work Phone: Platelets bldon 02-11-2022 Platelets (Bld) [#/Vol] 187 10*3/uL 150-450 [facility] Work Phone: Serum or plasma calcium zora urement (mass/volume)on 02-11-2022 Calcium [Mass/Vol] 9.2 mg/dL 8.5-10.1 [facility] Work Phone: Serum or plasma creatinine m easurement (mass/volume)on 02-11-2022 Creatinine [Mass/Vol] 1.04 mg/dL 0.55-1.02 [facility] Work Phone: Comment on above: The validity of the calculated GFR & GFRAA in patients over 70 years has not been determined. Clinical correlation is essential. Serum or plasma urea nitroge n measurement (mass/volume)on 02-11-2022 Urea nitrogen [Mass/Vol] 15 mg/dL 7-18 [facility] Work Phone: Thin prep Papanicolaou smear with manual screeningon 02-11-2022 Thin prep Papanicolaou smear with manual screening 4 5-15 [facility] Work Phone: XR HUMERUS 2V AP/LAT RIGHTon 12-17-2021 [facility] XR Humerus - right AP and La teralon 12-17-2021 IMPRESSION: No acute process. 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 Pain of right upper extremity. TECHNIQUE: XR HUMERUS 2V AP/LAT RT Laterality: RIGHT Number of different views (projections): 2 M: XB_1 COMPARISON: There are no prior relevant studies for comparison. RESULT: 2 views of the right humerus show no acute osseous, articular or soft tissue abnormality. Subcentimeter benign calcification within the medial superior soft tissues is present. ZZZ_DO_NOT_ USE_DIVISIO N OF RADIOLOGY Provider, Sumit Arreaga - 12/17/2021 * * *Final Report* * * DATE OF EXAM: Dec 17 2021 1:38PM WOX 5355 - XR HUMERUS 2V AP/LAT RT / PROCEDURE REASON: Pain of right upper extremity * * * * Physician Interpretation * * * * EXAMINATION: XR HUMERUS 2V AP/LAT RT HISTORY: pt injured right humerus earlier today while cooking, felt a sharp pain while moving something with that arm. Pain of right upper extremity. TECHNIQUE: XR HUMERUS 2V AP/LAT RT Laterality: RIGHT Number of different views (projections): 2 M: XB_1 COMPARISON: There are no prior relevant studies for comparison. RESULT: 2 views of the right humerus show no acute osseous, articular or soft tissue abnormality. Subcentimeter benign calcification within the medial superior soft tissues is present. IMPRESSION IMPRESSION: No acute process. 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 Transcribe Date/Time: Dec 17 2021 1:44P Dictated by : CESAR REYES MD This examination was interpreted and the report reviewed and electronically signed by: CESAR REYES MD on Dec 17 2021 1:47PM [facility] Radiology Study observation (narrative) [facility] XR Humerus - right AP and La teralOrdered By: Ccf Provider on 12-17-2021 [facility] No Panel Informationon 12-16 [facility] No Panel Informationon 10-29 [facility] Basic metabolic 2000 panelon 09-11-2021 Anion gap [Moles/Vol] 13 mmol/L 9 - 18 mmol/L [facility] Calcium [Mass/Vol] 10.3 mg/dL High 8.5 - 10. 2 mg/dL [facility] Chloride [Moles/Vol] 102 mmol/L 97 - 10 5 mmol/L [facility] CO2 [Moles/Vol] 25 mmol/L 22 - 30 mmol/L [facility] Creatinine [Mass/Vol] 0.79 mg/dL 0.58 - 0.96 mg/dL [facility] GFR/1.73 sq M.predicted among blacks MDRD (S/P/Bld) [Vol rate/Area] mL/min/{1.73_m2} [facility] GFR/1.73 sq M.predicted among non-blacks MDRD (S/P/Bld) [Vol rate/Area] mL/min/{1.73_m2} [facility] Glucose [Mass/Vol] 88 mg/dL 74 - 99 mg/dL [facility] Potassium [Moles/Vol] 4.3 mmol/L 3.7 - 5.1 mmol/L [facility] Sodium [Moles/Vol] 140 mmol/L 136 - 144 mmol/L [facility] Urea nitrogen [Mass/Vol] 19 mg/dL 7 - 21 mg/dL [facility] CBC panel Auto (Bld)on 09-11 Absolute nRBC <0.01 <0.01 k/uL [facility] Erythrocyte distribution width (RBC) [Ratio] 12.5 % 11.5 - 15.0 % [facility] Hematocrit (Bld) [Volume fraction] 45.0 % 36.0 - 46.0 % [facility] Hemoglobin (Bld) [Mass/Vol] 14.4 g/dL 11.5 - 15.5 g/dL [facility] MCH (RBC) [Entitic mass] 29.4 pG 26. 0 - 34.0 pG [facility] MCHC (RBC) [Mass/Vol] 32.0 g/dL 30.5 - 36.0 g/dL [facility] MCV (RBC) [Entitic vol] 92.0 fL 80.0 - 100.0 fL [facility] Platelet mean volume (Bld) [Entitic vol] 12.1 fL 9.0 - 12.7 fL [facility] Platelets (Bld) [#/Vol] 204 10*3/uL 150 - 400 k/uL [facility] RBC (Bld) [#/Vol] 4.89 10*6/uL 3.90 - 5.2 0 m/uL [facility] WBC (Bld) [#/Vol] 6.76 10*3/uL 3.70 - 11.00 k/uL [facility] VITAMIN D 25 HYDROXYon 09-11 25-hydroxyvitamin D3 [Mass/Vol] 74.4 ng/mL 31.0 - 80.0 ng/mL [facility] Office Visiton 11-22-2016 Dietary management education, guidance, and counseling (procedure) yes Invalid Interpretation Code [employer] Work Phone: Documentation of current medications (procedure) Done Invalid Interpretation Code [employer] 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 Work Phone: Office Visiton 07-21-2015 Documentation of current medications (procedure) Done Invalid Interpretation Code [employer] Work Phone: [phone] Tobacco use CPHS Former smoker Invalid Interpretation Code [employer] Work Phone: [phone] Office Visit: [facility] 01-07-20 15 cardiac risk group B Invalid Interpretation Code [employer] Work Phone: [phone] General cardiovascular disease 10Y risk [#] [place] 9 % Invalid Interpretation Code [employer] Work Phone: [phone] Replaced Document: Melissa UNDERWOOD Observationson 01-06-2015 electrocardiogram interpretation Sinus Rhythm WITHIN NORMAL LIMITS Invalid Interpretation Code [employer] Work Phone: [phone] GE use only - for [employer] import when terms are not otherwise specified 428 ms Invalid Interpretation Code [employer] Work Phone: [phone] P wave axis, electrocardiogram 67 deg Invalid Interpretation Code [employer] Work Phone: [phone] MO interval, electrocardiogram 130 ms Invalid Interpretation Code [employer] Work Phone: [phone] Pulse (Heart Rate) 60 /min Invalid Interpretation Code [employer] Work Phone: [phone] QRS axis, electrocardiogram 44 deg Invalid Interpretation Code [employer] Work Phone: [phone] QRS duration, electrocardiogram 88 ms Invalid Interpretation Code [employer] Work Phone: [phone] QT interval, electrocardiogram new path ms Invalid Interpretation Code [employer] Work Phone: [phone] T wave axis, electrocardiogram 51 deg Invalid Interpretation Code [employer] Work Phone: [phone] [facility] 147 mg/dL Invalid Interpretation Code [employer] Work Phone: [phone] HDL Cholesterol 59 mg/dL Invalid Interpretation Code [employer] Work Phone: [phone] LDL Cholesterol 75 mg/dL Invalid Interpretation Code [employer] Work Phone: [phone] Triglyceride 65 mg/dL Invalid Interpretation Code [employer] Work Phone: [phone] very low density lipoproteins 13 mg/dL Invalid Interpretation Code [employer] Work Phone: [phone] Replaced Document: Melissa UNDERWOOD Observationson 03-23-2013 Pulse (Heart Rate) 445 ms Invalid Interpretation Code [employer] Work Phone: [phone] Clinical Lists Update: 01-19-2012 Anion gap 10 mmol/L Invalid Interpretation Code [employer] Work Phone: [phone] BUN/Creatinine Ratio 25.0 mg/mg Invalid Interpretation Code [employer] Work Phone: [phone] Calcium 8.3 mg/dL Invalid Interpretation Code [employer] Work Phone: [phone] Chloride 105 mmol/L Invalid Interpretation Code [employer] Work Phone: [phone] CO2 26.0 mmol/L Invalid Interpretation Code [employer] Work Phone: [phone] Creatinine 0.8 mg/dL Invalid Interpretation Code [employer] Work Phone: [phone] Erythrocytes (RBC) 4.14 10*6/uL Invalid Interpretation Code [employer] Work Phone: [phone] Glucose 244 mg/dL High [employer] Work Phone: [phone] Hematocrit (HCT) 36.6 % Invalid Interpretation Code [employer] Work Phone: [phone] Hemoglobin (HGB) 12.5 g/dL Invalid Interpretation Code [employer] Work Phone: [phone] MCH 30.1 pg Invalid Interpretation Code [employer] Work Phone: [phone] MCV 88.5 fL Invalid Interpretation Code [employer] Work Phone: [phone] Platelets 163 10*3/mm3 Invalid Interpretation Code [employer] Work Phone: [phone] Potassium 4.2 mmol/L Invalid Interpretation Code [employer] Work Phone: [phone] Sodium 141 mmol/L Invalid Interpretation Code [employer] Work Phone: [phone] Urea nitrogen 20 mg/dL Invalid Interpretation Code [employer] Work Phone: [phone] WBC (Leukocytes) 7.1 10*3/uL Invalid Interpretation Code [employer] Work Phone: [phone] Clinical Lists Update: 01-18-2012 Thyroid stimulating hormone (TSH) 2.01 u[iU]/mL Invalid Interpretation Code [facility] Work Phone: Culture, urine Bacteria identified Cx Nom (U) Positive [facility] Work Phone: Gram stain for investigation of transfusion reaction Microscopic observation Gram stain Nom (Unsp spec) [facility] Work Phone: Influenza virus A and B and SARS-CoV-2 (COVID-19) Ag panel - Upper respiratory specim SARS-CoV-2 & FLU Antigen (Rapid) SARS-CoV-2 (COVID 19) [facility] Work Phone: Laboratory - Microbiology an d Antimicrobial susceptibility Bacteria identified Cx Nom (Bld) No growth in 5 days. [facility] Work Phone: Microbial respiratory cultur e Bacteria identified Respiratory culture Nom (Unsp spec) or Staphylococcus aureus isolated. [facility] Work Phone: [phone] No Panel Information Streptococcus pneumoniae Antigen (M [facility] Work Phone: SARS-CoV-2 (COVID-19) Ag IA. rapid Ql (Resp) SARS-CoV-2 Antigen (Rapid) SARS-CoV-2 (COVID 19) [facility] Work Phone: Vital Signs Date Time Vital Sign Value Performing Clinician Facility 12-19-2024 17:46-0400 Body temperature 97.7 [degF] Dr. Octavio Reza MD Work Phone: [facility] 12-19-2024 17:46-0400 Diastolic blood pressure 63 mm[Hg] Dr. Octavio Reza MD Work Phone: [facility] 12-19-2024 17:46-0400 Heart rate 88 /min Dr. Octavio Reza MD Work Phone: [facility] 12-19-2024 17:46-0400 Respiratory rate 16 /min Dr. Octavio Reza MD Work Phone: [facility] 12-19-2024 17:46-0400 SaO2% (BldA) [Mass fraction] 99 % Dr. Octavio Reza MD Work Phone: [facility] 12-19-2024 17:46-0400 Systolic blood pressure 167 mm[Hg] Dr. Octavio Reza MD Work Phone: [phone])699-764008 [place] [address] 12-19-2024 15:55-0400 Body mass index (BMI) [Ratio] 42.4 kg/m2 Dr. Octavio Reza MD Work Phone: 9(291)436-666808 [place] [address] 12-19-2024 15:55-0400 Body weight 130.[address] Octavio Reza MD Work Phone: 3(907)543-270908 [place] [address] 12-19-2024 15:49-0400 Body height 175.[address] Octavio Reza MD Work Phone: 5(540)991-730808 [place] [address] 11-29-2024 23:34-0400 Body temperature 98 [degF] Dr. Octavio Reza MD Work Phone: 9(885)823-654308 [place] [address] 11-29-2024 23:34-0400 Diastolic blood pressure 69 mm[Hg] Dr. Octavio Reza MD Work Phone: 2(540)491-918408 [place] [address] 11-29-2024 23:34-0400 Heart rate 90 /min Dr. Octavio Reza MD Work Phone: 0(175)420-655208 [place] [address] 11-29-2024 23:34-0400 Respiratory rate 18 /min Dr. Octavio Reza MD Work Phone: 5(555)241-959908 [place] [address] 11-29-2024 23:34-0400 SaO2% (BldA) [Mass fraction] 98 % Dr. Octavio Reza MD Work Phone: 3(664)310-733708 [place] [address] 11-29-2024 23:34-0400 Systolic blood pressure 157 mm[Hg] Dr. Octavio Reza MD Work Phone: 1(599)880-264208 [place] [address] 11-29-2024 21:15-0400 Body mass index (BMI) [Ratio] 42.8 kg/m2 Dr. Octavio Reza MD Work Phone: 0(661)763-011108 [place] [address] 11-29-2024 21:15-0400 Body weight 131.[address] Octavio Reza MD Work Phone: 5(918)254-378720 [place] [address] 11-29-2024 21:13-0400 Body height 175.[address] Octavio Reza MD Work Phone: 3(495)633-790408 [place] [address] 11-15-2024 08:20-0400 Body mass index (BMI) [Ratio] 41.6 kg/m2 Dr. Octavio Reza MD Work Phone: 3(577)605-995708 [place] [address] 11-15-2024 08:20-0400 Body weight 127.[address] Octavio Reza MD Work Phone: 8(186)911-861208 [place] [address] 11-15-2024 08:20-0400 Diastolic blood pressure 64 mm[Hg] Dr. Octavio Reza MD Work Phone: 2(370)243-266808 [place] [address] 11-15-2024 08:20-0400 Heart rate 72 /min Dr. Octavio Reza MD Work Phone: 4(438)781-005508 [place] [address] 11-15-2024 08:20-0400 Respiratory rate 18 /min Dr. Octavio Reza MD Work Phone: 9(955)496-399908 [place] [address] 11-15-2024 08:20-0400 Systolic blood pressure 137 mm[Hg] Dr. Octavio Reza MD Work Phone: 2(425)822-15[address] [place] [address] 11-03-2024 11:07-0400 Body temperature 97.8 [degF] Dr. Octavio Reza MD Work Phone: 5(849)241-297308 [place] [address] 11-03-2024 11:07-0400 Diastolic blood pressure 59 mm[Hg] Dr. Octavio Reza MD Work Phone: 9(787)674-844208 [place] [address] 11-03-2024 11:07-0400 Heart rate 87 /min Dr. Octavio Reza MD Work Phone: 0(142)598-749908 [place] [address] 11-03-2024 11:07-0400 Respiratory rate 16 /min Dr. Octavio Reza MD Work Phone: 2([phone])992-487408 [place] [address] 11-03-2024 11:07-0400 SaO2% (BldA) [Mass fraction] 98 % Dr. Octavio Reza MD Work Phone: [facility] 11-03-2024 11:07-0400 Systolic blood pressure 153 mm[Hg] Dr. Octavio Reza MD Work Phone: [facility] 11-03-2024 06:56-0400 Body height 175.[address] Octavio Reza MD Work Phone: [facility] 11-03-2024 06:56-0400 Body mass index (BMI) [Ratio] 43.2 kg/m2 Dr. Octavio Reza MD Work Phone: [facility] 11-03-2024 06:56-0400 Body weight 132.[address] Octavio Reza MD Work Phone: [facility] 10-31-2024 15:00-0400 Body mass index (BMI) [Ratio] 42.27 kg/m2 Renetta Cioce CLINICAL LAW PROFESSOR.PLATE SLITTER AND INSPECTOR Work Phone: [facility] 10-31-2024 15:00-0400 Body temperature 97.81 [degF] Renetta Cioce CLINICAL LAW PROFESSOR.PLATE SLITTER AND INSPECTOR Work Phone: [facility] 10-31-2024 15:00-0400 Body weight 131.72 kg Renetta Cioce CLINICAL LAW PROFESSOR.PLATE SLITTER AND INSPECTOR Work Phone: [facility] 10-31-2024 15:00-0400 Heart rate 72 /min Renetta Cioce CLINICAL LAW PROFESSOR.PLATE SLITTER AND INSPECTOR Work Phone: [facility] 10-31-2024 15:00-0400 SaO2% (BldA) [Mass fraction] 96 % Renetta Cioce CLINICAL LAW PROFESSOR.PLATE SLITTER AND INSPECTOR Work Phone: [facility] 10-24-2024 22:08-0400 Body temperature 98 [degF] Dr. Octavio Reza MD Work Phone: [facility] 10-24-2024 22:08-0400 Diastolic blood pressure 60 mm[Hg] Dr. Octavio Reza MD Work Phone: 9(157)818-579420 [place] [address] 10-24-2024 22:08-0400 Heart rate 71 /min Dr. Octavio Reza MD Work Phone: 5(326)656-150508 [place] [address] 10-24-2024 22:08-0400 Respiratory rate 18 /min Dr. Octavio Reza MD Work Phone: 2(742)816-430008 [place] [address] 10-24-2024 22:08-0400 SaO2% (BldA) [Mass fraction] 95 % Dr. Octavio Reza MD Work Phone: 1(192)875-881308 [place] [address] 10-24-2024 22:08-0400 Systolic blood pressure 150 mm[Hg] Dr. Octavio Reza MD Work Phone: 4(078)958-740708 [place] [address] 10-24-2024 20:50-0400 Body mass index (BMI) [Ratio] 46 kg/m2 Dr. Octavio Reza MD Work Phone: 6(208)330-997108 [place] [address] 10-24-2024 20:50-0400 Body weight 141.[address] Octavio Reza MD Work Phone: 6(336)288-615208 [place] [address] 10-24-2024 20:23-0400 Body height 175.[address] Octavio Reza MD Work Phone: 5(463)188-091908 [place] [address] 10-19-2024 12:41-0400 Body temperature 97.8 [degF] Dr. Octavio Reza MD Work Phone: 4(964)996-639408 [place] [address] 10-19-2024 12:41-0400 Diastolic blood pressure 78 mm[Hg] Dr. Octavio Reza MD Work Phone: 8(928)273-341308 [place] [address] 10-19-2024 12:41-0400 Heart rate 73 /min Dr. Octavio Reza MD Work Phone: 3(624)820-313208 [place] [address] 10-19-2024 12:41-0400 Respiratory rate 14 /min Dr. Octavio Reza MD Work Phone: 3(134)383-382308 [place] [address] 10-19-2024 12:41-0400 SaO2% (BldA) [Mass fraction] 97 % Dr. Octavio Reza MD Work Phone: [facility] 10-19-2024 12:41-0400 Systolic blood pressure 141 mm[Hg] Dr. Octavio Reza MD Work Phone: [facility] 10-19-2024 09:42-0400 Body mass index (BMI) [Ratio] 42.4 kg/m2 Dr. Octavio Reza MD Work Phone: [facility] 10-19-2024 09:42-0400 Body weight 130.[address] Octavio Reza MD Work Phone: [facility] 10-19-2024 09:27-0400 Body height 175.[address] Octavio Reza MD Work Phone: [facility] 10-15-2024 13:40-0400 Body mass index (BMI) [Ratio] 42.2 kg/m2 Octavio Reza MD Work Phone: [facility] 10-15-2024 13:40-0400 Body weight 131.5 kg Octavio Reza MD Work Phone: [facility] 10-15-2024 13:40-0400 Diastolic blood pressure 64 mm[Hg] Octavio Reza MD Work Phone: [facility] 10-15-2024 13:40-0400 Heart rate 64 /min Octavio Reza MD Work Phone: [facility] 10-15-2024 13:40-0400 Respiratory rate 14 /min Octavio Reza MD Work Phone: [facility] 10-15-2024 13:40-0400 Systolic blood pressure 140 mm[Hg] Octavio Reza MD Work Phone: [facility] 09-26-2024 10:04-0400 Body mass index (BMI) [Ratio] 43.03 kg/m2 Octavio Reza MD Work Phone: [facility] 09-26-2024 10:04-0400 Body weight 134.1 kg Octavio Reza MD Work Phone: [facility] 09-26-2024 10:04-0400 Diastolic blood pressure 75 mm[Hg] Octavio Reza MD Work Phone: [facility] 09-26-2024 10:04-0400 Heart rate 55 /min Octavio Reza MD Work Phone: [facility] 09-26-2024 10:04-0400 Respiratory rate 16 /min Octavio Reza MD Work Phone: [facility] 09-26-2024 10:04-0400 Systolic blood pressure 143 mm[Hg] Octavio Reza MD Work Phone: [facility] 09-23-2024 22:36-0400 Body temperature 98 [degF] Dr. Octavio Reza MD Work Phone: [facility] 09-23-2024 22:36-0400 Diastolic blood pressure 57 mm[Hg] Dr. Octavio Reza MD Work Phone: [facility] 09-23-2024 22:36-0400 Heart rate 65 /min Dr. Octavio Reza MD Work Phone: [facility] 09-23-2024 22:36-0400 Respiratory rate 18 /min Dr. Octavio Reza MD Work Phone: [facility] 09-23-2024 22:36-0400 SaO2% (BldA) [Mass fraction] 99 % Dr. Octavio Reza MD Work Phone: [facility] 09-23-2024 22:36-0400 Systolic blood pressure 135 mm[Hg] Dr. Octavio Reza MD Work Phone: [facility] 09-23-2024 19:25-0400 Body height 175.[address] Octavio Reza MD Work Phone: [facility] 09-23-2024 19:25-0400 Body mass index (BMI) [Ratio] 44 kg/m2 Dr. Octavio Reza MD Work Phone: 0(499)330-505608 [place] [address] 09-23-2024 19:25-0400 Body weight 135.[address] Octavio Reza MD Work Phone: 5(335)164-214508 [place] [address] 09-21-2024 10:19-0500 Body temperature 97.9 [degF] Dr. Octavio Reza MD Work Phone: 9(081)698-183308 [place] [address] 09-21-2024 10:19-0500 Diastolic blood pressure 50 mm[Hg] Dr. Octavio Reza MD Work Phone: 6(871)867-455508 [place] [address] 09-21-2024 10:19-0500 Heart rate 73 /min Dr. Octavio Reza MD Work Phone: 4(725)298-719508 [place] [address] 09-21-2024 10:19-0500 Respiratory rate 16 /min Dr. Octavio Reza MD Work Phone: 5(858)738-022508 [place] [address] 09-21-2024 10:19-0500 SaO2% (BldA) [Mass fraction] 99 % Dr. Octavio Reza MD Work Phone: 4(082)753-194408 [place] [address] 09-21-2024 10:19-0500 Systolic blood pressure 118 mm[Hg] Dr. Octavio Reza MD Work Phone: 7(007)334-516308 [place] [address] 09-21-2024 06:22-0500 Body height 175.[address] Octavio Reza MD Work Phone: 5(148)786-646908 [place] [address] 09-21-2024 06:22-0500 Body mass index (BMI) [Ratio] 43.7 kg/m2 Dr. Octavio Reza MD Work Phone: 4(201)753-128808 [place] [address] 09-21-2024 06:22-0500 Body weight 134.[address] Octavio Reza MD Work Phone: 4(768)961-970208 [place] [address] 09-20-2024 23:40-0500 Body temperature 98.4 [degF] Dr. Octavio Reza MD Work Phone: 9(844)727-136708 [place] [address] 09-20-2024 23:40-0500 Diastolic blood pressure 51 mm[Hg] Dr. Octavio Reza MD Work Phone: 0(238)343-817608 [place] [address] 09-20-2024 23:40-0500 Heart rate 80 /min Dr. Octavio Reza MD Work Phone: 4(705)270-564408 [place] [address] 09-20-2024 23:40-0500 Respiratory rate 18 /min Dr. Octavio Reza MD Work Phone: 5(910)752-121408 [place] [address] 09-20-2024 23:40-0500 SaO2% (BldA) [Mass fraction] 95 % Dr. Octavio Reza MD Work Phone: 2(151)754-220008 [place] [address] 09-20-2024 23:40-0500 Systolic blood pressure 116 mm[Hg] Dr. Octavio Reza MD Work Phone: 1(349)489-460208 [place] [address] 09-20-2024 17:49-0500 Body height 175.[address] Octavio Reza MD Work Phone: 3(913)789-866908 [place] [address] 07-28-2024 22:41-0500 Body temperature 97.4 [degF] Dr. cOtavio Reza MD Work Phone: 2(919)850-390008 [place] [address] 07-28-2024 22:41-0500 Diastolic blood pressure 74 mm[Hg] Dr. Octavio Reza MD Work Phone: 7(659)086-373908 [place] [address] 07-28-2024 22:41-0500 Heart rate 59 /min Dr. Octavio Reza MD Work Phone: 1(093)210-207008 [place] [address] 07-28-2024 22:41-0500 Respiratory rate 18 /min Dr. Octavio Reza MD Work Phone: 6(694)594-602708 [place] [address] 07-28-2024 22:41-0500 SaO2% (BldA) [Mass fraction] 98 % Dr. Octavio Reza MD Work Phone: 9(203)411-015608 [place] [address] 07-28-2024 22:41-0500 Systolic blood pressure 160 mm[Hg] Dr. Octavio Reza MD Work Phone: [facility] 07-28-2024 20:36-0500 Body mass index (BMI) [Ratio] 45.3 kg/m2 Dr. Octavio Reza MD Work Phone: [facility] 07-28-2024 20:36-0500 Body weight 139.[address] Octavio Reza MD Work Phone: [facility] 07-03-2024 14:30-0500 Diastolic blood pressure 73 mm[Hg] Lydia Grande CLINICAL LAW PROFESSOR.INSIDE HORTICULTURAL SPECIALTY GROWER Work Phone: [facility] Comment on above: bp average 07-03-2024 14:30-0500 Heart rate 67 /min Lydia Grande CLINICAL LAW PROFESSOR.INSIDE HORTICULTURAL SPECIALTY GROWER Work Phone: [facility] 07-03-2024 14:30-0500 Systolic blood pressure 132 mm[Hg] Lydia Grande CLINICAL LAW PROFESSOR.INSIDE HORTICULTURAL SPECIALTY GROWER Work Phone: [facility] Comment on above: bp average 07-03-2024 14:25-0500 Body mass index (BMI) [Ratio] 44.22 kg/m2 Lydia Grande CLINICAL LAW PROFESSOR.INSIDE HORTICULTURAL SPECIALTY GROWER Work Phone: [facility] 07-03-2024 14:25-0500 Body weight 137.8 kg Lydia Grande CLINICAL LAW PROFESSOR.INSIDE HORTICULTURAL SPECIALTY GROWER Work Phone: [facility] 07-03-2024 14:25-0500 Respiratory rate 16 /min Lydia Grande CLINICAL LAW PROFESSOR.INSIDE HORTICULTURAL SPECIALTY GROWER Work Phone: [facility] 07-03-2024 00:49-0500 Body temperature 97.6 [degF] Dr. Octavio Reza MD Work Phone: [facility] 07-03-2024 00:49-0500 Diastolic blood pressure 71 mm[Hg] Dr. Octavio Reza MD Work Phone: [facility] 07-03-2024 00:49-0500 Heart rate 60 /min Dr. Octavio Reza MD Work Phone: 5(731)589-814061 [address] 07-03-2024 00:49-0500 Respiratory rate 19 /min Dr. Octavio Reza MD Work Phone: 7(941)028-775708 [place] [address] 07-03-2024 00:49-0500 SaO2% (BldA) [Mass fraction] 97 % Dr. Octavio Reza MD Work Phone: 8(753)929-898708 [place] [address] 07-03-2024 00:49-0500 Systolic blood pressure 142 mm[Hg] Dr. Octavio Reza MD Work Phone: 3(413)317-674708 [place] [address] 07-02-2024 21:59-0500 Body mass index (BMI) [Ratio] 44.9 kg/m2 Dr. Octavio Reza MD Work Phone: 2(807)048-272308 [place] [address] 07-02-2024 21:59-0500 Body weight 137.[address] Octavio Reza MD Work Phone: 6(549)730-630108 [place] [address] 06-13-2024 08:55-0500 Body mass index (BMI) [Ratio] 44.9 kg/m2 Dr. Octavio Reza MD Work Phone: 1(632)455-405308 [place] [address] 06-13-2024 08:55-0500 Body weight 137.[address] Octavio Reza MD Work Phone: 9(797)925-607508 [place] [address] 06-13-2024 08:55-0500 Diastolic blood pressure 65 mm[Hg] Dr. Octavio Reza MD Work Phone: 1(620)588-005908 [place] [address] 06-13-2024 08:55-0500 Heart rate 58 /min Dr. Octavio Reza MD Work Phone: 0(231)198-205208 [place] [address] 06-13-2024 08:55-0500 Respiratory rate 18 /min Dr. Octavio Reza MD Work Phone: 5(403)227-545108 [place] [address] 06-13-2024 08:55-0500 Systolic blood pressure 155 mm[Hg] Dr. Octavio Reza MD Work Phone: 9(435)186-509908 [place] [address] 06-11-2024 09:46-0500 Body mass index (BMI) [Ratio] 44.86 kg/m2 Octavio Reza MD Work Phone: [facility] 06-11-2024 09:46-0500 Body weight 139.8 kg Octavio Reza MD Work Phone: [facility] 06-11-2024 09:46-0500 Diastolic blood pressure 78 mm[Hg] Octavio Reza MD Work Phone: [facility] 06-11-2024 09:46-0500 Heart rate 51 /min Octavio Reza MD Work Phone: [facility] 06-11-2024 09:46-0500 SaO2% (BldA) [Mass fraction] 96 % Octavio Reza MD Work Phone: [facility] 06-11-2024 09:46-0500 Systolic blood pressure 124 mm[Hg] Octavio Reza MD Work Phone: [facility] 06-08-2024 19:19-0500 Body temperature 97.7 [degF] Dr. Octavio Reza MD Work Phone: [facility] 06-08-2024 19:19-0500 Diastolic blood pressure 85 mm[Hg] Dr. Octavio Reza MD Work Phone: [facility] 06-08-2024 19:19-0500 Heart rate 64 /min Dr. Octavio Reza MD Work Phone: [facility] 06-08-2024 19:19-0500 Respiratory rate 18 /min Dr. Octavio Reza MD Work Phone: [facility] 06-08-2024 19:19-0500 SaO2% (BldA) [Mass fraction] 94 % Dr. Octavio Reza MD Work Phone: [facility] 06-08-2024 19:19-0500 Systolic blood pressure 150 mm[Hg] Dr. Octavio Reza MD Work Phone: [facility] 06-08-2024 17:11-0500 Body mass index (BMI) [Ratio] 46.2 kg/m2 Dr. Octavio Reza MD Work Phone: 2(402)898-473220 [place] [address] 06-08-2024 17:11-0500 Body weight 141.[address] Octavio Reza MD Work Phone: 2(359)689-325808 [place] [address] 05-27-2024 21:02-0500 Body temperature 97.8 [degF] Dr. Octavio Reza MD Work Phone: 5(317)033-725508 [place] [address] 05-27-2024 21:02-0500 Diastolic blood pressure 80 mm[Hg] Dr. Octavio Reza MD Work Phone: 8(295)623-069708 [place] [address] 05-27-2024 21:02-0500 Heart rate 68 /min Dr. Octavio Reza MD Work Phone: 5(378)217-853108 [place] [address] 05-27-2024 21:02-0500 Respiratory rate 18 /min Dr. Octavio Reza MD Work Phone: 0(537)594-258208 [place] [address] 05-27-2024 21:02-0500 SaO2% (BldA) [Mass fraction] 97 % Dr. Octavio Reza MD Work Phone: 3(896)372-537108 [place] [address] 05-27-2024 21:02-0500 Systolic blood pressure 146 mm[Hg] Dr. Octavio Reza MD Work Phone: 5(800)331-834908 [place] [address] 05-25-2024 06:17-0500 Body temperature 97 [degF] Dr. Octavio Reza MD Work Phone: 4(213)501-741908 [place] [address] 05-25-2024 06:17-0500 Diastolic blood pressure 53 mm[Hg] Dr. Octavio Reza MD Work Phone: 8(945)153-961108 [place] [address] 05-25-2024 06:17-0500 Heart rate 72 /min Dr. Octavio Reza MD Work Phone: 4(789)320-296608 [place] [address] 05-25-2024 06:17-0500 Respiratory rate 17 /min Dr. Octavio Reza MD Work Phone: 0(088)228-772808 [place] [address] 05-25-2024 06:17-0500 SaO2% (BldA) [Mass fraction] 95 % Dr. Octavio Reza MD Work Phone: [facility] 05-25-2024 06:17-0500 Systolic blood pressure 121 mm[Hg] Dr. Octavio Reza MD Work Phone: [facility] 05-25-2024 04:47-0500 Body mass index (BMI) [Ratio] 46.1 kg/m2 Dr. Octavio Reza MD Work Phone: [facility] 05-25-2024 04:47-0500 Body weight 141.[address] Octavio Reza MD Work Phone: [facility] 05-23-2024 12:31-0500 Body height 176.5 cm Renetta Cioce CLINICAL LAW PROFESSOR.PLATE SLITTER AND INSPECTOR Work Phone: [facility] 05-23-2024 12:31-0500 Body mass index (BMI) [Ratio] 44.98 kg/m2 Renetta Cioce CLINICAL LAW PROFESSOR.PLATE SLITTER AND INSPECTOR Work Phone: [facility] 05-23-2024 12:31-0500 Body weight 140.16 kg Renetta Cioce CLINICAL LAW PROFESSOR.PLATE SLITTER AND INSPECTOR Work Phone: [facility] 05-23-2024 12:31-0500 Diastolic blood pressure 72 mm[Hg] Renetta Cioce CLINICAL LAW PROFESSOR.PLATE SLITTER AND INSPECTOR Work Phone: [facility] 05-23-2024 12:31-0500 Heart rate 60 /min Renetta Cioce CLINICAL LAW PROFESSOR.PLATE SLITTER AND INSPECTOR Work Phone: [facility] 05-23-2024 12:31-0500 Respiratory rate 20 /min Renetta Cioce CLINICAL LAW PROFESSOR.PLATE SLITTER AND INSPECTOR Work Phone: [facility] 05-23-2024 12:31-0500 SaO2% (BldA) [Mass fraction] 97 % Renetta Cioce CLINICAL LAW PROFESSOR.PLATE SLITTER AND INSPECTOR Work Phone: [facility] 05-23-2024 12:31-0500 Systolic blood pressure 138 mm[Hg] Renetta Cioce CLINICAL LAW PROFESSOR.PLATE SLITTER AND INSPECTOR Work Phone: [facility] 05-07-2024 15:18-0400 Diastolic blood pressure 72 mm[Hg] Davon Narda CLINICAL LAW PROFESSOR.PLATE SLITTER AND INSPECTOR Work Phone: [facility] 05-07-2024 15:18-0400 Systolic blood pressure 140 mm[Hg] Davon Narda CLINICAL LAW PROFESSOR.PLATE SLITTER AND INSPECTOR Work Phone: [facility] 05-07-2024 15:09-0400 Body mass index (BMI) [Ratio] 45.31 kg/m2 Davon Narda CLINICAL LAW PROFESSOR.PLATE SLITTER AND INSPECTOR Work Phone: [facility] 05-07-2024 15:09-0400 Body weight 141.2 kg Davon Narda CLINICAL LAW PROFESSOR.PLATE SLITTER AND INSPECTOR Work Phone: [facility] 05-07-2024 15:09-0400 Heart rate 60 /min Davon Narda CLINICAL LAW PROFESSOR.PLATE SLITTER AND INSPECTOR Work Phone: [facility] 05-07-2024 15:09-0400 SaO2% (BldA) [Mass fraction] 97 % Davon Narda CLINICAL LAW PROFESSOR.PLATE SLITTER AND INSPECTOR Work Phone: [facility] 04-18-2024 09:24-0400 Body mass index (BMI) [Ratio] 46.18 kg/m2 Smiley Prieto CLINICAL LAW PROFESSOR.PLATE SLITTER AND INSPECTOR Work Phone: [facility] 04-18-2024 09:24-0400 Body temperature 97.3 [degF] Smiley Prieto CLINICAL LAW PROFESSOR.PLATE SLITTER AND INSPECTOR Work Phone: [facility] 04-18-2024 09:24-0400 Body weight 143.9 kg Smiley Prieto CLINICAL LAW PROFESSOR.PLATE SLITTER AND INSPECTOR Work Phone: [facility] 04-18-2024 09:24-0400 Diastolic blood pressure 84 mm[Hg] Smiley Prieto CLINICAL LAW PROFESSOR.PLATE SLITTER AND INSPECTOR Work Phone: [facility] 04-18-2024 09:24-0400 Heart rate 60 /min Smiley Prieto CLINICAL LAW PROFESSOR.PLATE SLITTER AND INSPECTOR Work Phone: [facility] 04-18-2024 09:24-0400 Respiratory rate 18 /min Smiley Prieto CLINICAL LAW PROFESSOR.PLATE SLITTER AND INSPECTOR Work Phone: [facility] 04-18-2024 09:24-0400 SaO2% (BldA) [Mass fraction] 97 % Smiley Prieto CLINICAL LAW PROFESSOR.PLATE SLITTER AND INSPECTOR Work Phone: [facility] 04-18-2024 09:24-0400 Systolic blood pressure 136 mm[Hg] Smiley Prieto CLINICAL LAW PROFESSOR.PLATE SLITTER AND INSPECTOR Work Phone: [facility] 03-07-2024 10:50-0400 Diastolic blood pressure 82 mm[Hg] Ariane Click CLINICAL LAW PROFESSOR.PLATE SLITTER AND INSPECTOR Work Phone: [facility] 03-07-2024 10:50-0400 Heart rate 72 /min Ariane Click CLINICAL LAW PROFESSOR.PLATE SLITTER AND INSPECTOR Work Phone: [facility] 03-07-2024 10:50-0400 Respiratory rate 15 /min Ariane Click CLINICAL LAW PROFESSOR.PLATE SLITTER AND INSPECTOR Work Phone: [facility] 03-07-2024 10:50-0400 SaO2% (BldA) [Mass fraction] 97 % Ariane Click CLINICAL LAW PROFESSOR.PLATE SLITTER AND INSPECTOR Work Phone: [facility] 03-07-2024 10:50-0400 Systolic blood pressure 132 mm[Hg] Ariane Click CLINICAL LAW PROFESSOR.PLATE SLITTER AND INSPECTOR Work Phone: [facility] 02-15-2024 14:34-0400 Body height 176.5 cm Renetta Cioce CLINICAL LAW PROFESSOR.PLATE SLITTER AND INSPECTOR Work Phone: [facility] 02-15-2024 14:34-0400 Body mass index (BMI) [Ratio] 45.85 kg/m2 Renetta Cioce CLINICAL LAW PROFESSOR.PLATE SLITTER AND INSPECTOR Work Phone: [facility] 02-15-2024 14:34-0400 Body temperature 97.81 [degF] Renetta Cioce CLINICAL LAW PROFESSOR.PLATE SLITTER AND INSPECTOR Work Phone: [facility] 02-15-2024 14:34-0400 Body weight 142.88 kg Renetta Cioce CLINICAL LAW PROFESSOR.PLATE SLITTER AND INSPECTOR Work Phone: [facility] 02-15-2024 14:34-0400 Heart rate 65 /min Renetta Cioce CLINICAL LAW PROFESSOR.PLATE SLITTER AND INSPECTOR Work Phone: [facility] 02-15-2024 14:34-0400 SaO2% (BldA) [Mass fraction] 96 % Renetta Cioce CLINICAL LAW PROFESSOR.PLATE SLITTER AND INSPECTOR Work Phone: [facility] 02-13-2024 09:17-0400 Body mass index (BMI) [Ratio] 45.88 kg/m2 Octavio Reza MD Work Phone: [facility] 02-13-2024 09:17-0400 Body temperature 97.5 [degF] Octavio Reza MD Work Phone: [facility] 02-13-2024 09:17-0400 Body weight 142.97 kg Octavio Reza MD Work Phone: [facility] 02-13-2024 09:17-0400 Diastolic blood pressure 80 mm[Hg] Octavio Reza MD Work Phone: [facility] 02-13-2024 09:17-0400 Heart rate 59 /min Octavio Reza MD Work Phone: [facility] 02-13-2024 09:17-0400 Respiratory rate 16 /min Octavio Reza MD Work Phone: [facility] 02-13-2024 09:17-0400 SaO2% (BldA) [Mass fraction] 97 % Octavio Reza MD Work Phone: [facility] 02-13-2024 09:17-0400 Systolic blood pressure 130 mm[Hg] Octavio Reza MD Work Phone: [facility] 01-02-2024 11:16-0400 Body mass index (BMI) [Ratio] 46.66 kg/m2 Tamika Morris MD Work Phone: [facility] 01-02-2024 11:16-0400 Body temperature 97.59 [degF] Tamika Morris MD Work Phone: [facility] 01-02-2024 11:160400 Body weight 145.4 kg Tamika Morris MD Work Phone: [facility] 01-02-2024 11:16-0400 Diastolic blood pressure 82 mm[Hg] Tamika Morris MD Work Phone: [facility] 01-02-2024 11:16-0400 Heart rate 60 /min Tamika Morris MD Work Phone: [facility] 01-02-2024 11:160400 Respiratory rate 18 /min Tamika Morris MD Work Phone: [facility] 01-02-2024 11:16-0400 SaO2% (BldA) [Mass fraction] 95 % Tamika Morris MD Work Phone: [facility] 01-02-2024 11:16-0400 Systolic blood pressure 152 mm[Hg] Tamika Morris MD Work Phone: [facility] 12-07-2023 10:13-0400 Body height 176.5 cm Renetta Cioce CLINICAL LAW PROFESSOR.PLATE SLITTER AND INSPECTOR Work Phone: [facility] 12-07-2023 10:13-0400 Body mass index (BMI) [Ratio] 48.03 kg/m2 Renetta Cioce CLINICAL LAW PROFESSOR.PLATE SLITTER AND INSPECTOR Work Phone: [facility] 12-07-2023 10:13-0400 Body weight 149.69 kg Renetta Cioce CLINICAL LAW PROFESSOR.PLATE SLITTER AND INSPECTOR Work Phone: [facility] 12-07-2023 10:13-0400 Diastolic blood pressure 70 mm[Hg] Renetta Cioce CLINICAL LAW PROFESSOR.PLATE SLITTER AND INSPECTOR Work Phone: [facility] 12-07-2023 10:13-0400 Heart rate 58 /min Renetta Cioce CLINICAL LAW PROFESSOR.PLATE SLITTER AND INSPECTOR Work Phone: [facility] 12-07-2023 10:13-0400 Respiratory rate 20 /min Renetta Cioce CLINICAL LAW PROFESSOR.PLATE SLITTER AND INSPECTOR Work Phone: [facility] 12-07-2023 10:13-0400 SaO2% (BldA) [Mass fraction] 96 % Renetta Cioce CLINICAL LAW PROFESSOR.PLATE SLITTER AND INSPECTOR Work Phone: [facility] 12-07-2023 10:13-0400 Systolic blood pressure 132 mm[Hg] Renetta Cioce CLINICAL LAW PROFESSOR.PLATE SLITTER AND INSPECTOR Work Phone: [facility] 11-29-2023 00:00-0400 Body temperature 98.7 [degF] Dr. Octavio Reza Work Phone: [facility] 11-29-2023 00:00-0400 Diastolic blood pressure 59 mm[Hg] Dr. Octavio Reza Work Phone: [facility] 11-29-2023 00:00-0400 Heart rate 85 /min Dr. Octavio Reza Work Phone: [facility] 11-29-2023 00:00-0400 Respiratory rate 16 /min Dr. Octavio Reza Work Phone: [facility] 11-29-2023 00:00-0400 SaO2% (BldA) [Mass fraction] 99 % Dr. Octavio Reza Work Phone: [facility] 11-29-2023 00:00-0400 Systolic blood pressure 130 mm[Hg] Dr. Octavio Reza Work Phone: [facility] 11-28-2023 20:06-0400 Body mass index (BMI) [Ratio] 53.1 kg/m2 Dr. Octavio Reza Work Phone: [facility] 11-28-2023 20:06-0400 Body weight 159.[address] Octavio Reza Work Phone: [facility] 11-28-2023 18:51-0400 Body height 172.[address] Octavio Reza Work Phone: [phone] [place] [address] 11-09-2023 15:10-0400 Diastolic blood pressure 70 mm[Hg] Davon Narda CLINICAL LAW PROFESSOR.PLATE [employer]ITTER AND INSPECTOR Work Phone: [facility] 11-09-2023 15:10-0400 Systolic blood pressure 132 mm[Hg] Davon Narda CLINICAL LAW PROFESSOR.PLATE SLITTER AND INSPECTOR Work Phone: [facility] 11-09-2023 15:08-0400 Body mass index (BMI) [Ratio] 48.88 kg/m2 Davon Narda CLINICAL LAW PROFESSOR.PLATE SLITTER AND INSPECTOR Work Phone: [facility] 11-09-2023 15:08-0400 Body weight 150.14 kg Davon Narda CLINICAL LAW PROFESSOR.PLATE SLITTER AND INSPECTOR Work Phone: [facility] 11-09-2023 15:08-0400 Heart rate 63 /min Davon Narda CLINICAL LAW PROFESSOR.PLATE SLITTER AND INSPECTOR Work Phone: [facility] 11-09-2023 15:08-0400 SaO2% (BldA) [Mass fraction] 98 % Davon Narda CLINICAL LAW PROFESSOR.PLATE SLITTER AND INSPECTOR Work Phone: [facility] 11-07-2023 17:47-0400 Diastolic blood pressure 65 mm[Hg] Dr. Octavio Reza Work Phone: [facility] 11-07-2023 17:47-0400 Heart rate 74 /min Dr. Octavio Reza Work Phone: [facility] 11-07-2023 17:47-0400 Respiratory rate 16 /min Dr. Octavio Reza Work Phone: [facility] 11-07-2023 17:47-0400 SaO2% (BldA) [Mass fraction] 95 % Dr. Octavio Reza Work Phone: [facility] 11-07-2023 17:47-0400 Systolic blood pressure 161 mm[Hg] Dr. Octavio Reza Work Phone: [facility] 11-07-2023 15:43-0400 Body height 175.[address] Octavio Reza Work Phone: [facility] 11-07-2023 15:43-0400 Body temperature 97.1 [degF] Dr. Octavio Reza Work Phone: [facility] 11-07-2023 00:02-0400 Body temperature 96.5 [degF] Dr. Octavio Reza Work Phone: [facility] 11-07-2023 00:02-0400 Diastolic blood pressure 62 mm[Hg] Dr. Octavio Reza Work Phone: [facility] 11-07-2023 00:02-0400 Heart rate 61 /min Dr. Octavio Reza Work Phone: [facility] 11-07-2023 00:02-0400 Respiratory rate 18 /min Dr. Octavio Reza Work Phone: [facility] 11-07-2023 00:02-0400 SaO2% (BldA) [Mass fraction] 97 % Dr. Octavio Reza Work Phone: [facility] 11-07-2023 00:02-0400 Systolic blood pressure 150 mm[Hg] Dr. Octavio Reza Work Phone: [facility] 11-07-2023 00:01-0400 Body mass index (BMI) [Ratio] 49.1 kg/m2 Dr. Octavio Reza Work Phone: [facility] 11-07-2023 00:01-0400 Body weight [address] Octavio Reza Work Phone: [facility] 11-06-2023 19:26-0400 Body height 175.[address] Octavio Reza Work Phone: [facility] 10-31-2023 08:12-0400 Body temperature 97.3 [degF] Tamika Morris MD Work Phone: [facility] 10-31-2023 08:12-0400 Body weight 156.04 kg Tamika Morris MD Work Phone: [facility] 10-31-2023 08:12-0400 Diastolic blood pressure 82 mm[Hg] Tamika Morris MD Work Phone: [facility] 10-31-2023 08:12-0400 Heart rate 59 /min Tamika Morris MD Work Phone: [facility] 10-31-2023 08:12-0400 Respiratory rate 18 /min Tamika Morris MD Work Phone: [facility] 10-31-2023 08:12-0400 SaO2% (BldA) [Mass fraction] 96 % Tamika Morris MD Work Phone: [facility] 10-31-2023 08:12-0400 Systolic blood pressure 142 mm[Hg] Tamika Morris MD Work Phone: [facility] 10-28-2023 21:12-0400 Body temperature 97.7 [degF] Dr. Octavio Reza Work Phone: [facility] 10-28-2023 21:12-0400 Diastolic blood pressure 58 mm[Hg] Dr. Octavio Reza Work Phone: [facility] 10-28-2023 21:12-0400 Heart rate 63 /min Dr. Octavio Reza Work Phone: [facility] 10-28-2023 21:12-0400 Respiratory rate 16 /min Dr. Octavio Reza Work Phone: [facility] 10-28-2023 21:12-0400 SaO2% (BldA) [Mass fraction] 95 % Dr. Octavio Reza Work Phone: [facility] 10-28-2023 21:12-0400 Systolic blood pressure 152 mm[Hg] Dr. Octavio Reza Work Phone: [facility] 10-28-2023 19:23-0400 Body mass index (BMI) [Ratio] 50.8 kg/m2 Dr. Octavio Reza Work Phone: [facility] 10-28-2023 19:23-0400 Body weight [address] Octavio Reza Work Phone: 3(098)591-854520 [place] [address] 10-28-2023 18:51-0400 Body height 175.[address] Octavio Reza Work Phone: 8(815)908-014408 [place] [address] 10-01-2023 16:37-0400 Body temperature 98 [degF] Dr. Octavio Reza Work Phone: 8(294)270-750608 [place] [address] 10-01-2023 16:37-0400 Diastolic blood pressure 65 mm[Hg] Dr. Octavio Reza Work Phone: 2(168)023-397508 [place] [address] 10-01-2023 16:37-0400 Heart rate 72 /min Dr. Octavio Reza Work Phone: 0(371)891-600508 [place] [address] 10-01-2023 16:37-0400 Respiratory rate 18 /min Dr. Octavio Reza Work Phone: 7(925)878-556008 [place] [address] 10-01-2023 16:37-0400 SaO2% (BldA) [Mass fraction] 95 % Dr. Octavio Reza Work Phone: 9(096)349-348620 [place] [address] 10-01-2023 16:37-0400 Systolic blood pressure 142 mm[Hg] Dr. Octavio Reza Work Phone: 1(168)941-136620 [place] [address] 10-01-2023 14:35-0400 Body mass index (BMI) [Ratio] 49.8 kg/m2 Dr. Octavio Reza Work Phone: 5(876)736-487620 [place] [address] 10-01-2023 14:35-0400 Body weight 153.[address] Octavio Reza Work Phone: 6(837)041-034020 [place] [address] 10-01-2023 14:33-0400 Body height 175.[address] Octavio Reza Work Phone: 9(199)028-664408 [place] [address] 09-29-2023 09:36-0400 Body mass index (BMI) [Ratio] 49.8 kg/m2 Dr. Octavio Reza Work Phone: [facility] 09-29-2023 09:36-0400 Body weight 153.[address] Octavio Reza Work Phone: [facility] 09-29-2023 09:36-0400 Diastolic blood pressure 66 mm[Hg] Dr. Octavio Reza Work Phone: [facility] 09-29-2023 09:36-0400 Respiratory rate 16 /min Dr. Octavio Reza Work Phone: [facility] 09-29-2023 09:36-0400 Systolic blood pressure 143 mm[Hg] Dr. Octavio Reza Work Phone: [facility] 09-22-2023 13:02-0500 Body weight 155.13 kg Jeannine Perkins MD Work Phone: [facility] 09-22-2023 13:02-0500 Diastolic blood pressure 68 mm[Hg] Jeannine Perkins MD Work Phone: [facility] 09-22-2023 13:02-0500 Heart rate 65 /min Jeannine Perkins MD Work Phone: [facility] 09-22-2023 13:02-0500 Respiratory rate 18 /min Jeannine Perkins MD Work Phone: [facility] 09-22-2023 13:02-0500 SaO2% (BldA) [Mass fraction] 96 % Jeannine Perkins MD Work Phone: [facility] 09-22-2023 13:02-0500 Systolic blood pressure 136 mm[Hg] Jeannine Perkins MD Work Phone: [facility] 09-21-2023 03:44-0500 Body temperature 97.7 [degF] [facility] 09-21-2023 03:44-0500 Diastolic blood pressure 79 mm[Hg] [facility] 09-21-2023 03:44-0500 Heart rate 64 /min [facility] 09-21-2023 03:44-0500 Respiratory rate 13 /min [facility] 09-21-2023 03:44-0500 SaO2% (BldA) [Mass fraction] 97 % [facility] 09-21-2023 03:44-0500 Systolic blood pressure 120 mm[Hg] [facility] 09-21-2023 00:22-0500 Body height 175.26 cm [facility] 09-21-2023 00:22-0500 Body mass index (BMI) [Ratio] 50.7 kg/m2 [facility] 09-21-2023 00:22-0500 Body weight 155.9 kg [facility] 09-16-2023 20:17-0500 Body temperature 97.2 [degF] [facility] 09-16-2023 20:17-0500 Diastolic blood pressure 58 mm[Hg] [facility] 09-16-2023 20:17-0500 Heart rate 59 /min [facility] 09-16-2023 20:17-0500 Respiratory rate 18 /min [facility] 09-16-2023 20:17-0500 SaO2% (BldA) [Mass fraction] 98 % [facility] 09-16-2023 20:17-0500 Systolic blood pressure 116 mm[Hg] [facility] 09-16-2023 17:54-0500 Body height 175.26 cm [facility] 09-16-2023 17:54-0500 Body mass index (BMI) [Ratio] 49 kg/m2 [facility] 09-16-2023 17:54-0500 Body weight 150.59 kg [facility] 09-01-2023 12:05-0500 Body weight 156.49 kg Lydia Grande CLINICAL LAW PROFESSOR.INSIDE HORTICULTURAL SPECIALTY GROWER Work Phone: [facility] 09-01-2023 12:05-0500 Diastolic blood pressure 74 mm[Hg] Lydia Grande CLINICAL LAW PROFESSOR.INSIDE HORTICULTURAL SPECIALTY GROWER Work Phone: [facility] 09-01-2023 12:05-0500 Heart rate 64 /min Lydia Grande CLINICAL LAW PROFESSOR.INSIDE HORTICULTURAL SPECIALTY GROWER Work Phone: [facility] 09-01-2023 12:05-0500 Respiratory rate 16 /min Lydia Grande CLINICAL LAW PROFESSOR.INSIDE HORTICULTURAL SPECIALTY GROWER Work Phone: [facility] 09-01-2023 12:05-0500 SaO2% (BldA) [Mass fraction] 96 % Lydia Grande CLINICAL LAW PROFESSOR.INSIDE H[employer]ICULTURAL SPECIALTY [employer]OWER Work Phone: [facility] 09-01-2023 12:05-0500 Systolic blood pressure 144 mm[Hg] Lydia Grande CLINICAL LAW PROFESSOR.INSIDE H[employer]ICULTURAL SPECIALTY [employer]OWER Work Phone: [facility] 06-23-2023 08:53-0500 Diastolic blood pressure 84 mm[Hg] Tierney Mayra PA-C Work Phone: [facility] 06-23-2023 08:53-0500 Heart rate 57 /min Tierney Mayra PA-C Work Phone: [facility] 06-23-2023 08:53-0500 Respiratory rate 17 /min Tierney Mayra PA-C Work Phone: [facility] 06-23-2023 08:53-0500 SaO2% (BldA) [Mass fraction] 96 % Tierney Mayra PA-C Work Phone: [facility] 06-23-2023 08:53-0500 Systolic blood pressure 122 mm[Hg] Tierney Mayra PA-C Work Phone: [facility] 05-28-2023 21:52-0500 Diastolic blood pressure 61 mm[Hg] [facility] 05-28-2023 21:52-0500 Heart rate 58 /min [facility] 05-28-2023 21:52-0500 Respiratory rate 16 /min [facility] 05-28-2023 21:52-0500 SaO2% (BldA) [Mass fraction] 95 % [facility] 05-28-2023 21:52-0500 Systolic blood pressure 141 mm[Hg] [facility] 05-28-2023 18:21-0500 Body mass index (BMI) [Ratio] 50.6 kg/m2 [facility] 05-28-2023 18:21-0500 Body weight 155.6 kg [facility] 05-28-2023 18:19-0500 Body temperature 96.5 [degF] [facility] 05-23-2023 14:08-0500 Body temperature 97.2 [degF] Octavio Reza MD Work Phone: [facility] 05-23-2023 14:08-0500 Body weight 154.22 kg Octavio Reza MD Work Phone: [facility] 05-23-2023 14:08-0500 Diastolic blood pressure 82 mm[Hg] Octavio Reza MD Work Phone: [facility] 05-23-2023 14:08-0500 Heart rate 68 /min Octavio Reza MD Work Phone: [facility] 05-23-2023 14:08-0500 Respiratory rate 18 /min Octavio Reza MD Work Phone: [facility] 05-23-2023 14:08-0500 SaO2% (BldA) [Mass fraction] 98 % Octavio Reza MD Work Phone: [facility] 05-23-2023 14:08-0500 Systolic blood pressure 128 mm[Hg] Octavio Reza MD Work Phone: [facility] 05-16-2023 09:30-0400 Body height 176.5 cm Anant Lees MD Work Phone: [facility] 05-16-2023 09:30-0400 Body weight 153.77 kg Anant Lees MD Work Phone: [facility] 05-16-2023 09:30-0400 Diastolic blood pressure 73 mm[Hg] Anant Lees MD Work Phone: [facility] 05-16-2023 09:30-0400 Heart rate 60 /min Anant Lees MD Work Phone: [facility] 05-16-2023 09:30-0400 SaO2% (BldA) [Mass fraction] 97 % Anant Lees MD Work Phone: [facility] 05-16-2023 09:30-0400 Systolic blood pressure 124 mm[Hg] Anant Lees MD Work Phone: [facility] 02-13-2023 19:20-0400 Body temperature 97.8 [degF] Dr. Octavio Reza Work Phone: [facility] 02-13-2023 19:20-0400 Diastolic blood pressure 79 mm[Hg] Dr. Octavio Reza Work Phone: [facility] 02-13-2023 19:20-0400 Heart rate 67 /min Dr. Octavio Reza Work Phone: [facility] 02-13-2023 19:20-0400 Respiratory rate 14 /min Dr. Octavio Reza Work Phone: [facility] 02-13-2023 19:20-0400 SaO2% (BldA) [Mass fraction] 99 % Dr. Octavio Reza Work Phone: [facility] 02-13-2023 19:20-0400 Systolic blood pressure 145 mm[Hg] Dr. Octavio Reza Work Phone: [facility] 02-13-2023 18:16-0400 Body height 175.[address] Octavio Reza Work Phone: [facility] 02-13-2023 18:16-0400 Body mass index (BMI) [Ratio] 49.1 kg/m2 Dr. Octavio Reza Work Phone: [facility] 02-13-2023 18:16-0400 Body weight 151.[address] Octavio Reza Work Phone: [facility] 01-17-2023 13:47-0400 Body temperature 97 [degF] Octavio Reza MD Work Phone: [facility] 01-17-2023 13:47-0400 Diastolic blood pressure 69 mm[Hg] Octavio Reza MD Work Phone: [facility] 01-17-2023 13:47-0400 Heart rate 63 /min Octavio Reza MD Work Phone: [facility] 01-17-2023 13:47-0400 Respiratory rate 18 /min Octavio Reza MD Work Phone: [facility] 01-17-2023 13:47-0400 SaO2% (BldA) [Mass fraction] 96 % Octavio Reza MD Work Phone: [facility] 01-17-2023 13:47-0400 Systolic blood pressure 122 mm[Hg] Octavio Reza MD Work Phone: [facility] 11-22-2022 12:52-0400 Body height 175.[address] Octavio Reza Work Phone: [facility] 11-22-2022 12:52-0400 Body mass index (BMI) [Ratio] 49.1 kg/m2 Dr. Octavio Reza Work Phone: [facility] 11-22-2022 12:52-0400 Body weight 151.[address] Octavio Reza Work Phone: [facility] 11-22-2022 12:52-0400 Diastolic blood pressure 66 mm[Hg] Dr. Octavio Reza Work Phone: [facility] 11-22-2022 12:52-0400 Heart rate 65 /min Dr. Octavio Reza Work Phone: [facility] 11-22-2022 12:52-0400 Inhaled oxygen flow rate 1 L/min Dr. Octavio Reza Work Phone: [facility] 11-22-2022 12:52-0400 Respiratory rate 20 /min Dr. Octavio Reza Work Phone: [facility] 11-22-2022 12:52-0400 SaO2% (BldA) [Mass fraction] 96 % Dr. Octavio Reza Work Phone: [facility] 11-22-2022 12:52-0400 Systolic blood pressure 145 mm[Hg] Dr. Octavio Reza Work Phone: 5(562)964-221620 [place] [address] 11-04-2022 21:00-0400 Diastolic blood pressure 59 mm[Hg] Dr. Octavio Reza Work Phone: 2(376)667-275808 [place] [address] 11-04-2022 21:00-0400 Heart rate 72 /min Dr. Octavio Reza Work Phone: 1(502)083-104308 [place] [address] 11-04-2022 21:00-0400 Inhaled oxygen flow rate 1 L/min Dr. Octavio Reza Work Phone: 6(223)881-223908 [place] [address] 11-04-2022 21:00-0400 Respiratory rate 12 /min Dr. Octavio Reza Work Phone: 2(054)806-066908 [place] [address] 11-04-2022 21:00-0400 SaO2% (BldA) [Mass fraction] 98 % Dr. Octavio Reza Work Phone: 6(198)792-868708 [place] [address] 11-04-2022 21:00-0400 Systolic blood pressure 147 mm[Hg] Dr. Octavio Reza Work Phone: 3(364)139-946808 [place] [address] 11-04-2022 17:59-0400 Body height 175.[address] Octavio Reza Work Phone: 8(582)326-846308 [place] [address] 11-04-2022 17:59-0400 Body mass index (BMI) [Ratio] 49.6 kg/m2 Dr. Octavio Reza Work Phone: 3(809)005-034408 [place] [address] 11-04-2022 17:59-0400 Body temperature 98.3 [degF] Dr. Octavio Reza Work Phone: 3(124)987-984908 [place] [address] 11-04-2022 17:59-0400 Body weight 152.[address] Octavio Reza Work Phone: 1(550)748-871208 [place] [address] 10-11-2022 20:32-0400 Diastolic blood pressure 57 mm[Hg] Dr. Octavio Reza Work Phone: 1(063)849-605608 [place] [address] 10-11-2022 20:32-0400 Heart rate 76 /min Dr. Octavio Reza Work Phone: 4(408)948-773308 [place] [address] 10-11-2022 20:32-0400 Respiratory rate 14 /min Dr. Octavio Reza Work Phone: 1(176)717-615208 [place] [address] 10-11-2022 20:32-0400 SaO2% (BldA) [Mass fraction] 98 % Dr. Octavio Reza Work Phone: 3(735)692-829508 [place] [address] 10-11-2022 20:32-0400 Systolic blood pressure 154 mm[Hg] Dr. Octavio Reza Work Phone: 6(255)517-090608 [place] [address] 10-11-2022 20:00-0400 Inhaled oxygen flow rate 1 L/min Dr. Octavio Reza Work Phone: 8(128)295-179908 [place] [address] 10-11-2022 16:10-0400 Body mass index (BMI) [Ratio] 50.3 kg/m2 Dr. Octavio Reza Work Phone: 7(206)052-135108 [place] [address] 10-11-2022 16:10-0400 Body weight 154.[address] Octavio Reza Work Phone: 7(864)568-253908 [place] [address] 10-11-2022 14:10-0400 Body height 175.[address] Octavio Reza Work Phone: 4(956)724-431420 [place] [address] 10-11-2022 14:10-0400 Body temperature 97.5 [degF] Dr. Octavio Reza Work Phone: 2(605)511-758608 [place] [address] 10-05-2022 12:57-0400 Body height 175.3 cm Davon Narda CLINICAL LAW PROFESSOR.PLATE SLITTER AND INSPECTOR Work Phone: 3(547)432-643527 [place] [address] 10-05-2022 12:57-0400 Body temperature 97.39 [degF] Davon Sotomayorr CLINICAL LAW PROFESSOR.PLATE SLITTER AND INSPECTOR Work Phone: 9(351)980-566227 [place] [address] 10-05-2022 12:57-0400 Body weight 151.05 kg Davon Narda CLINICAL LAW PROFESSOR.PLATE SLITTER AND INSPECTOR Work Phone: [facility] 10-05-2022 12:57-0400 Diastolic blood pressure 62 mm[Hg] Davon Narda CLINICAL LAW PROFESSOR.PLATE SLITTER AND INSPECTOR Work Phone: [facility] 10-05-2022 12:57-0400 Heart rate 71 /min Davon Narda CLINICAL LAW PROFESSOR.PLATE SLITTER AND INSPECTOR Work Phone: [facility] 10-05-2022 12:57-0400 Respiratory rate 16 /min Davon Narda CLINICAL LAW PROFESSOR.PLATE SLITTER AND INSPECTOR Work Phone: [facility] 10-05-2022 12:57-0400 SaO2% (BldA) [Mass fraction] 97 % Davon Narda CLINICAL LAW PROFESSOR.PLATE SLITTER AND INSPECTOR Work Phone: [facility] 10-05-2022 12:57-0400 Systolic blood pressure 138 mm[Hg] Davon Narda CLINICAL LAW PROFESSOR.PLATE SLITTER AND INSPECTOR Work Phone: [facility] 10-01-2022 16:38-0400 Diastolic blood pressure 64 mm[Hg] Dr. Octavio Reza Work Phone: [facility] 10-01-2022 16:38-0400 Systolic blood pressure 143 mm[Hg] Dr. Octavio Reza Work Phone: [facility] 10-01-2022 16:37-0400 Heart rate 75 /min Dr. Octavio Reza Work Phone: [facility] 10-01-2022 16:37-0400 Respiratory rate 16 /min Dr. Octavio Reza Work Phone: [facility] 10-01-2022 16:37-0400 SaO2% (BldA) [Mass fraction] 97 % Dr. Octavio Reza Work Phone: [facility] 10-01-2022 14:21-0400 Body mass index (BMI) [Ratio] 49.4 kg/m2 Dr. Octavio Reza Work Phone: [facility] 10-01-2022 14:21-0400 Body weight 151.[address] Octavio Reza Work Phone: [facility] 10-01-2022 13:50-0400 Body height 175.[address] Octavio Reza Work Phone: [facility] 10-01-2022 13:50-0400 Body temperature 97.5 [degF] Dr. Octavio Reza Work Phone: [facility] 10-01-2022 13:50-0400 Inhaled oxygen flow rate 1 L/min Dr. Octavio Reza Work Phone: [facility] 09-07-2022 18:00-0500 Diastolic blood pressure 64 mm[Hg] Octavio Reza MD Work Phone: [facility] 09-07-2022 18:00-0500 Systolic blood pressure 144 mm[Hg] Octavio Reza MD Work Phone: [facility] 09-07-2022 17:29-0500 Body temperature 97.9 [degF] Octavio Reza MD Work Phone: [facility] 09-07-2022 17:29-0500 Heart rate 77 /min Octavio Reza MD Work Phone: [facility] 09-07-2022 17:29-0500 Respiratory rate 18 /min Octavio Reza MD Work Phone: [facility] 09-07-2022 17:29-0500 SaO2% (BldA) [Mass fraction] 98 % Octavio Reza MD Work Phone: [facility] 08-17-2022 15:59-0500 Body temperature 98.2 [degF] Octavio Reza MD Work Phone: [facility] 08-17-2022 15:59-0500 Diastolic blood pressure 68 mm[Hg] Octavio Reza MD Work Phone: [facility] 08-17-2022 15:59-0500 Heart rate 61 /min Octavio Reza MD Work Phone: [facility] 08-17-2022 15:59-0500 Respiratory rate 18 /min Octavio Reza MD Work Phone: [facility] 08-17-2022 15:59-0500 SaO2% (BldA) [Mass fraction] 98 % Octavio Reza MD Work Phone: [facility] 08-17-2022 15:59-0500 Systolic blood pressure 120 mm[Hg] Octavio Reza MD Work Phone: [facility] 08-02-2022 13:25-0500 Body temperature 98.9 [degF] Dr. Octavio Reza Work Phone: [facility] 08-02-2022 13:25-0500 Diastolic blood pressure 61 mm[Hg] Dr. Octavio Reza Work Phone: [facility] 08-02-2022 13:25-0500 Heart rate 75 /min Dr. Octavio Reza Work Phone: [facility] 08-02-2022 13:25-0500 Inhaled oxygen flow rate 4 L/min Dr. Octavio Reza Work Phone: [facility] 08-02-2022 13:25-0500 Respiratory rate 17 /min Dr. Octavio Reza Work Phone: [facility] 08-02-2022 13:25-0500 SaO2% (BldA) [Mass fraction] 95 % Dr. Octavio Reza Work Phone: [facility] 08-02-2022 13:25-0500 Systolic blood pressure 148 mm[Hg] Dr. Octavio Reza Work Phone: [facility] 08-01-2022 11:18-0500 Body height 176.[address] Octavio Reza Work Phone: [facility] 08-01-2022 11:18-0500 Body weight 149.[address] Octaivo Reza Work Phone: [facility] 07-31-2022 23:29-0500 Body mass index (BMI) [Ratio] 47.9 kg/m2 Dr. Octavio Reza Work Phone: [facility] 07-31-2022 22:25-0500 Body temperature 98.6 [degF] Dr. Octavio Reza Work Phone: [facility] Work Phone: 07-31-2022 22:25-0500 Diastolic blood pressure 50 mm[Hg] Dr. Octavio Reza Work Phone: [facility] Work Phone: 07-31-2022 22:25-0500 Heart rate 82 /min Dr. Octavio Reza Work Phone: [facility] Work Phone: 07-31-2022 22:25-0500 Inhaled oxygen flow rate 2 L/min Dr. Octavio Reza Work Phone: [facility] Work Phone: 07-31-2022 22:25-0500 Respiratory rate 20 /min Dr. Octavio Reza Work Phone: [facility] Work Phone: 07-31-2022 22:25-0500 SaO2% (BldA) [Mass fraction] 91 % Dr. Octavio Reza Work Phone: [facility] Work Phone: 07-31-2022 22:25-0500 Systolic blood pressure 142 mm[Hg] Dr. Octavio Reza Work Phone: [facility] Work Phone: 07-31-2022 17:52-0500 Body height 175.[address] Octavio Reza Work Phone: [facility] Work Phone: 07-31-2022 17:52-0500 Body mass index (BMI) [Ratio] 49.1 kg/m2 Dr. Octavio Reza Work Phone: [facility] Work Phone: 07-31-2022 17:52-0500 Body weight 151.[address] Octavio Reza Work Phone: [facility] Work Phone: 07-24-2022 09:31-0500 Inhaled oxygen flow rate 92 L/min Dr. Octavio Reza Work Phone: [facility] 07-24-2022 09:31-0500 SaO2% (BldA) [Mass fraction] 2 % Dr. Octavio Reza Work Phone: 4(399)279-120220 [place] [address] 07-24-2022 09:09-0500 Diastolic blood pressure 49 mm[Hg] Dr. Octavio Reza Work Phone: [facility] 07-24-2022 09:09-0500 Heart rate 84 /min Dr. Octavio Reza Work Phone: 4(544)105-969820 [place] [address] 07-24-2022 09:09-0500 Systolic blood pressure 127 mm[Hg] Dr. Octavio Reza Work Phone: 8(834)070-332920 [place] [address] 07-24-2022 09:03-0500 Body temperature 98.3 [degF] Dr. Octavio Reza Work Phone: [facility] 07-24-2022 09:03-0500 Respiratory rate 18 /min Dr. Octavio Reza Work Phone: [facility] 07-23-2022 15:10-0500 Body height 175.[address] Octavio Reza Work Phone: [facility] Work Phone: 07-23-2022 15:10-0500 Body weight 155.[address] Octavio Reza Work Phone: [facility] 07-19-2022 23:30-0500 Inhaled oxygen concentration 35 % Dr. Octavio Reza Work Phone: [facility] 07-18-2022 02:48-0500 Body mass index (BMI) [Ratio] 50.7 kg/m2 Dr. Octavio Reza Work Phone: 8(450)[phone] [place] [address] 07-14-2022 14:59-0500 Body temperature 98.3 [degF] Dr. Octavio Reza Work Phone: 6(194)[phone] [place] [address] 07-14-2022 14:59-0500 Diastolic blood pressure 65 mm[Hg] Dr. Octavio Reza Work Phone: 8(727)[phone] [place] [address] 07-14-2022 14:59-0500 Heart rate 88 /min Dr. Octavio Reza Work Phone: 1(431)[phone] [place] [address] 07-14-2022 14:59-0500 Inhaled oxygen flow rate 2 L/min Dr. Octavio Reza Work Phone: 2(959)[phone] [address] [place], [place] [id number] 07-14-2022 14:59-0500 Respiratory rate 18 /min Dr. Octavio Reza Work Phone: 2(025)077-344108 [place] [address] 07-14-2022 14:59-0500 SaO2% (BldA) [Mass fraction] 95 % Dr. Octavio Reza Work Phone: 3(681)[phone] [place] [address] 07-14-2022 14:59-0500 Systolic blood pressure 153 mm[Hg] Dr. Octavio Reza Work Phone: 7(835)880-489108 [place] [address] 07-12-2022 12:45-0500 Body weight 152.[address] Octavio Reza Work Phone: 2(650)[phone] [place] [address] 07-10-2022 18:33-0500 Body mass index (BMI) [Ratio] 49.6 kg/m2 Dr. Octavio Reza Work Phone: 7(661)[phone] [place] [address] 07-10-2022 17:47-0500 Inhaled oxygen flow rate 2 L/min Dr. Octavio Reza Work Phone: 3(862)[phone] [place] [address] Work Phone: 07-10-2022 17:47-0500 SaO2% (BldA) [Mass fraction] 93 % Dr. Octavio Reza Work Phone: [facility] Work Phone: 07-10-2022 17:25-0500 Body temperature 98.8 [degF] Dr. Octavio Reza Work Phone: [facility] Work Phone: 07-10-2022 17:25-0500 Diastolic blood pressure 57 mm[Hg] Dr. Octavio Reza Work Phone: [facility] Work Phone: 07-10-2022 17:25-0500 Heart rate 94 /min Dr. Octavio Reza Work Phone: [facility] Work Phone: 07-10-2022 17:25-0500 Respiratory rate 28 /min Dr. Octavio Reza Work Phone: [facility] Work Phone: 07-10-2022 17:25-0500 Systolic blood pressure 151 mm[Hg] Dr. Octavio Reza Work Phone: [facility] Work Phone: 07-10-2022 14:16-0500 Body height 175.[address] Octavio Reza Work Phone: [facility] Work Phone: 07-10-2022 14:16-0500 Body mass index (BMI) [Ratio] 49.6 kg/m2 Dr. Octavio Reza Work Phone: [facility] Work Phone: 07-10-2022 14:16-0500 Body weight 152.[address] Octavio Reza Work Phone: [facility] Work Phone: 06-22-2022 10:54-0500 Body mass index (BMI) [Ratio] 51.5 kg/m2 Dr. Octavio Reza Work Phone: [facility] 06-22-2022 10:54-0500 Body weight 158.[address] Octavio Reza Work Phone: [facility] 06-22-2022 10:54-0500 Diastolic blood pressure 70 mm[Hg] Dr. Octavio Reza Work Phone: [facility] 06-22-2022 10:54-0500 Heart rate 58 /min Dr. Octavio Reza Work Phone: [facility] 06-22-2022 10:54-0500 Respiratory rate 18 /min Dr. Octavio Reza Work Phone: [facility] 06-22-2022 10:54-0500 SaO2% (BldA) [Mass fraction] 96 % Dr. Octavio Reza Work Phone: [facility] 06-22-2022 10:54-0500 Systolic blood pressure 129 mm[Hg] Dr. Octavio Reza Work Phone: [facility] 05-18-2022 09:19-0400 Diastolic blood pressure 80 mm[Hg] Octavio Reza MD Work Phone: [facility] 05-18-2022 09:19-0400 Heart rate 55 /min Octavio Reza MD Work Phone: [facility] 05-18-2022 09:19-0400 SaO2% (BldA) [Mass fraction] 98 % Octavio Reza MD Work Phone: [facility] 05-18-2022 09:19-0400 Systolic blood pressure 128 mm[Hg] Octavio Reza MD Work Phone: [facility] 02-15-2022 14:44-0400 Body weight 153.77 kg Lydia Grande APRN.[employer] Work Phone: [facility] 02-15-2022 14:44-0400 Diastolic blood pressure 60 mm[Hg] Lydia Grande APRN.[employer] Work Phone: [facility] 02-15-2022 14:44-0400 Heart rate 63 /min Lydia Grande CLINICAL LAW PROFESSOR.[employer] Work Phone: [facility] 02-15-2022 14:44-0400 Respiratory rate 16 /min Lydia Grande CLINICAL LAW PROFESSOR.[employer] Work Phone: [facility] 02-15-2022 14:44-0400 SaO2% (BldA) [Mass fraction] 96 % Lydia Grande CLINICAL LAW PROFESSOR.[employer] Work Phone: [facility] 02-15-2022 14:44-0400 Systolic blood pressure 144 mm[Hg] [facility] CLINICAL LAW PROFESSOR.[employer] Work Phone: [facility] 02-11-2022 15:20-0400 Diastolic blood pressure 74 mm[Hg] Dr. Octavio Reza Work Phone: [facility] Work Phone: 02-11-2022 15:20-0400 Heart rate 63 /min Dr. Octavio Reza Work Phone: [facility] Work Phone: 02-11-2022 15:20-0400 Respiratory rate 16 /min Dr. Octavio Reza Work Phone: [facility] Work Phone: 02-11-2022 15:20-0400 SaO2% (BldA) [Mass fraction] 96 % Dr. Octavio Reza Work Phone: [facility] Work Phone: 02-11-2022 15:20-0400 Systolic blood pressure 154 mm[Hg] Dr. Octavio Reza Work Phone: [facility] Work Phone: 02-11-2022 14:20-0400 Body height 175.[address] Octavio Reza Work Phone: [facility] Work Phone: 02-11-2022 14:20-0400 Body mass index (BMI) [Ratio] 51.9 kg/m2 Dr. Octavio Reza Work Phone: [facility] Work Phone: 02-11-2022 14:20-0400 Body temperature 97 [degF] Dr. Octavio Reza Work Phone: [facility] Work Phone: 02-11-2022 14:20-0400 Body weight 159.[address] Octavio Reza Work Phone: [facility] Work Phone: 01-11-2022 14:59-0400 Body weight 153.32 kg Octavio Reza MD Work Phone: [facility] 01-11-2022 14:59-0400 Diastolic blood pressure 82 mm[Hg] Octavio Reza MD Work Phone: [facility] 01-11-2022 14:59-0400 Heart rate 68 /min Octavio Reza MD Work Phone: [facility] 01-11-2022 14:59-0400 SaO2% (BldA) [Mass fraction] 97 % Octavio Reza MD Work Phone: [facility] 01-11-2022 14:59-0400 Systolic blood pressure 152 mm[Hg] Octavio Reza MD Work Phone: [facility] 12-23-2021 16:18-0400 Body temperature 97.11 [degF] Guillermo Maurer MD Work Phone: [facility] 12-23-2021 16:18-0400 Body weight 151.05 kg Guillermo Maurer MD Work Phone: [facility] 12-23-2021 16:18-0400 Diastolic blood pressure 82 mm[Hg] Guillermo Maurer MD Work Phone: [facility] 12-23-2021 16:18-0400 Heart rate 72 /min Guillermo Maurer MD Work Phone: [facility] 12-23-2021 16:18-0400 Respiratory rate 16 /min Guillermo Maurer MD Work Phone: [facility] 12-23-2021 16:18-0400 Systolic blood pressure 154 mm[Hg] Guillermo Maurer MD Work Phone: [facility] 12-21-2021 11:21-0400 Body mass index (BMI) [Ratio] 50.1 kg/m2 Dr. Octavio Reza Work Phone: [facility] Work Phone: 12-21-2021 11:21-0400 Body weight 153.[address] Octavio Reza Work Phone: [facility] Work Phone: 12-21-2021 11:21-0400 Diastolic blood pressure 78 mm[Hg] Dr. Octavio Reza Work Phone: [facility] Work Phone: 12-21-2021 11:21-0400 Heart rate 59 /min Dr. Octavio Reza Work Phone: [facility] Work Phone: 12-21-2021 11:21-0400 Respiratory rate 18 /min Dr. Octavio Reza Work Phone: [facility] Work Phone: 12-21-2021 11:21-0400 SaO2% (BldA) [Mass fraction] 97 % Dr. Octavio Reza Work Phone: [facility] Work Phone: 12-21-2021 11:21-0400 Systolic blood pressure 160 mm[Hg] Dr. Octavio Reza Work Phone: [facility] Work Phone: 12-17-2021 12:44-0400 Body temperature 97.11 [degF] Wanda Phillips APRN.CNP Work Phone: [facility] 12-17-2021 12:44-0400 Diastolic blood pressure 88 mm[Hg] Wanda Praisler-Wood CLINICAL LAW PROFESSOR.PLATE SLITTER AND INSPECTOR Work Phone: [facility] 12-17-2021 12:44-0400 Heart rate 71 /min Wanda Praisler-Wood CLINICAL LAW PROFESSOR.PLATE SLITTER AND INSPECTOR Work Phone: [facility] 12-17-2021 12:44-0400 Respiratory rate 18 /min Wanda Praisler-Wood CLINICAL LAW PROFESSOR.PLATE SLITTER AND INSPECTOR Work Phone: [facility] 12-17-2021 12:44-0400 SaO2% (BldA) [Mass fraction] 96 % Wanda Praisler-Wood CLINICAL LAW PROFESSOR.PLATE SLITTER AND INSPECTOR Work Phone: [facility] 12-17-2021 12:44-0400 Systolic blood pressure 146 mm[Hg] Wanda Praisler-Wood CLINICAL LAW PROFESSOR.PLATE SLITTER AND INSPECTOR Work Phone: [facility] 10-29-2021 09:00-0400 Diastolic blood pressure 66 mm[Hg] Holland Carmichael MD Work Phone: [facility] 10-29-2021 09:00-0400 Heart rate 80 /min Holland Carmichael MD Work Phone: [facility] 10-29-2021 09:00-0400 Respiratory rate 20 /min Holland Carmichael MD Work Phone: [facility] 10-29-2021 09:00-0400 SaO2% (BldA) [Mass fraction] 93 % Holland Carmichael MD Work Phone: [facility] 10-29-2021 09:00-0400 Systolic blood pressure 142 mm[Hg] Holland Carmichael MD Work Phone: [facility] 10-29-2021 07:58-0400 Body temperature 97.59 [degF] Holland Carmichael MD Work Phone: [facility] 09-11-2021 11:56-0500 Diastolic blood pressure 72 mm[Hg] Octavio Reza MD Work Phone: [facility] 09-11-2021 11:56-0500 Systolic blood pressure 148 mm[Hg] Octavio Reza MD Work Phone: [facility] 09-11-2021 10:47-0500 Heart rate 62 /min Octavio Reza MD Work Phone: [facility] 11-22-2016 10:37-0400 BMI (Body Mass Index) [...] BP Diastolic 70 mm[Hg] Bettina Vaca RN [facility] Work Phone: 07-21-2015 13:03-0500 BP Systolic 146 mm[Hg] Bettina Vaca RN [facility] Work Phone: 07-21-2015 13:03-0500 BSA (Body Surface Area) 2.65 m2 Bettina Vaca RN [facility] Work Phone: 07-21-2015 13:03-0500 Pulse (Heart Rate) 64 /min Bettina Vaca RN [facility] Work Phone: 07-21-2015 13:03-0500 Respiratory Rate 14 /min Bettina Vaca RN [facility] Work Phone: 07-21-2015 13:03-0500 Weight 158.76 kg Bettina Vaca RN [facility] Work Phone: 01-06-2015 15:20-0400 BMI (Body Mass Index) [facility] Work Phone: 03-15-2012 13:57-0400 Height 177.8 cm [facility] Work Phone: Encounters Encounter Date Encounter Type Care Provider Facility Start: 12-19-2024 End: 12-19-2024 Emergency department patient visit Dr. 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 Octavio Reza MD Work Phone: -Emergency Department Work Phone: Start: 11-15-2024 End: 11-15-2024 Patient encounter procedure Areli LOWRY -[facility] Work Phone: Start: 11-15-2024 End: 11-15-2024 [facility] Facility:[facility] Start: 11-07-2024 End: 11-07-2024 ambulatory Eliza Gilliland RN Work Phone: [facility] Comment on above: Primary Care Coordin ator- Other (CDM chart review) Start: 11-06-2024 End: 11-06-2024 [facility] Start: 11-06-2024 End: 11-06-2024 Patient encounter procedure Charis Lucas [facility] Work Phone: [facility] Comment on above: Type I diabetes chrissy itus with manifestations (HCC) (Primary Dx) Start: 11-06-2024 End: 11-06-2024 Telemedicine consultation with patient Charis Lucas [facility] Work Phone: [facility] Start: 11-03-2024 End: 11-03-2024 Emergency department patient visit Dr. Octavio Reza MD Work Phone: -Emergency Department Work Phone: Start: 10-31-2024 End: 10-31-2024 Patient encounter procedure Renetta Mcgee CLINICAL LAW PROFESSOR.PLATE SLITTER AND INSPECTOR Work Phone: Endocrinology Comment on above: Type I diabetes chrissy itus with manifestations (HCC); Charcot foot due to diabetes mellitus Start: 10-31-2024 End: 10-31-2024 [facility] Start: 10-29-2024 End: 10-29-2024 Telephone encounter Renetta Mcgee CLINICAL LAW PROFESSOR.PLATE SLITTER AND INSPECTOR Work Phone: Endocrinology Comment on above: Patient Update (Ongo ing high blood sugars) Start: 10-24-2024 End: 10-24-2024 Emergency department patient visit Dr. Octavio Reza MD Work Phone: -Emergency Department Work Phone: Start: 10-19-2024 End: 10-22-2024 ambulatory Octavio Reza MD Work Phone: [facility] [place] Comment on above: High Blood Sugar; le ft leg pain Start: 10-19-2024 End: 10-22-2024 Telephone encounter Renetta Mcgee APRN.PLATE SLITTER AND INSPECTOR Work Phone: Endocrinology Comment on above: Patient Question; Re questing a call back from nurse; Returning Patient's Call Start: 10-19-2024 End: 10-19-2024 Emergency department patient visit Dr. Octavio Reza MD Work Phone: -Emergency Department Work Phone: Start: 10-15-2024 End: 10-15-2024 ambulatory OCTAVIO REZA Facility:[facility] Start: 10-15-2024 End: 10-15-2024 Office outpatient visit 25 minutes Octavio Reza MD Work Phone: [facility] [place] Comment on above: Type 1 diabetes chrissy itus with Charcot joint of foot (HCC) (Primary Dx); Primary insomnia; Anxiety state; Vitamin D deficiency; Constipation, unspecified constipation type; Psoriasis of scalp; Seborrheic dermatitis Start: 10-04-2024 End: 10-04-2024 Telephone encounter Lydia Grande APRN.CNS Work Phone: [facility] [place] Comment on above: Constipation Start: 10-01-2024 End: 10-01-2024 ambulatory OCTAVIO REZA Facility:[facility] Start: 09-27-2024 End: 10-01-2024 Telephone encounter Octavio Reza MD Work Phone: [facility] [place] Comment on above: Patient Question Start: 09-26-2024 End: 09-26-2024 ambulatory OCTAVIO REZA Facility:[facility] Start: 09-26-2024 End: 09-26-2024 Office outpatient visit 25 minutes Octavio Reza MD Work Phone: [facility] [place] Comment on above: Acute diarrhea (Prim nancy Dx); 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); Anemia, unspecified type; Essential hypertension; Morbid (severe) obesity due to excess calories (HCC) Start: 09-23-2024 End: 09-23-2024 Emergency department patient visit Dr. Octavio Reza MD Work Phone: -Emergency Department Work Phone: Start: 09-23-2024 End: 09-23-2024 ambulatory Susana Fuentes RN NURSE SWITCH BOX INSTALLER Start: 09-23-2024 End: 09-23-2024 Patient encounter procedure Susana Fuentes RN NURSE SWITCH BOX INSTALLER Comment on above: Clinical Update Start: 09-21-2024 End: 09-21-2024 ambulatory Tere Mcgrath RN NURSE SWITCH BOX INSTALLER Comment on above: High Blood Sugar Start: 09-21-2024 End: 09-21-2024 Telephone encounter Octavio Reza MD Work Phone: [facility] [place] Comment on above: Patient Update Start: 09-21-2024 End: 09-21-2024 Emergency department patient visit Dr. Octavio Reza MD Work Phone: -Emergency Department Work Phone: Start: 09-20-2024 End: 09-20-2024 Emergency department patient visit Dr. Octavio Reza MD Work Phone: -Emergency Department Work Phone: Start: 09-13-2024 End: 09-13-2024 ambulatory Tierney Sun RN NURSE SWITCH BOX INSTALLER Start: 09-13-2024 End: 09-13-2024 Patient encounter procedure Tierney Sun RN NURSE SWITCH BOX INSTALLER Comment on above: Clinical Update Start: 09-10-2024 End: 09-11-2024 Telephone encounter Charis Lucas [facility] Work Phone: [facility] Comment on above: Patient Update Start: 09-10-2024 End: 09-10-2024 ambulatory OCTAVIO REZA Facility:[facility] Start: 09-10-2024 End: 09-10-2024 Patient encounter procedure Charis Lucas [facility] Work Phone: [facility] Comment on above: Type I diabetes chrissy itus with manifestations (HCC) (Primary Dx) Start: 09-10-2024 End: 09-10-2024 Telemedicine consultation with patient Charis Lucas [facility] Work Phone: [facility] Start: 09-06-2024 End: 09-06-2024 Telephone encounter Octavio Reza MD Work Phone: [facility] [place] Comment on above: Patient Question Start: 09-04-2024 End: 09-05-2024 Telephone encounter Renetta Mcgee APRN.CNP Work Phone: Endocrinology Comment on above: Results Start: 08-20-2024 End: 08-20-2024 ambulatory OCTAVIO REZA Facility:[facility] Start: 08-17-2024 End: 08-17-2024 ambulatory Phoebe Carrion MA [facility] [place] Start: 08-17-2024 End: 08-17-2024 [facility] encounter [facility] [place] Comment on above: Population Health Na vigation Outreach ([employer] High Risk - Attempt 1) Start: 08-09-2024 End: 08-09-2024 ambulatory Octavio Reza MD Work Phone: [facility] [place] Comment on above: Constipation Start: 08-08-2024 End: 09-25-2024 Telephone encounter Octavio Reza MD Work Phone: [facility] [place] Comment on above: Blood sugar test str ips PA Start: 08-01-2024 End: 08-01-2024 Telephone encounter Octavio Reza MD Work Phone: [facility] [place] Comment on above: Patient Question Start: 07-31-2024 End: 07-31-2024 ambulatory OCTAVIO ROGERSBEKA Facility:[facility] Start: 07-31-2024 End: 07-31-2024 Patient encounter procedure Charis Lucas [facility] Work Phone: [facility] Comment on above: 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 Lars Dahl DO -Emergency Department Work Phone: Start: 07-27-2024 End: 07-27-2024 Refill Octavio Reza MD Work Phone: [facility] [place] Comment on above: Refill Request Start: 07-19-2024 End: 07-19-2024 Telephone encounter Octavio Reza MD Work Phone: [facility] [place] Comment on above: Patient Question Start: 07-16-2024 End: 07-16-2024 Telephone encounter Octavio Reza MD Work Phone: [facility] [place] Comment on above: Rx Refills Start: 07-03-2024 End: 07-03-2024 ambulatory OCTAVIO ROGERSBEKA Facility:[facility] Start: 07-03-2024 End: 07-03-2024 Office outpatient visit 25 minutes Lydia Grande APRN.[employer] Work Phone: [facility] [place] Comment on above: Essential hypertensi on (Primary Dx); 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 Eduardo Paz DO -Emergency Department Work Phone: Start: 06-29-2024 End: 07-02-2024 Telephone encounter Octavio Reza MD Work Phone: [facility] [place] Comment on above: Patient Update Start: 06-28-2024 End: 06-28-2024 ambulatory OCTAVIO REZA Facility:[facility] Start: 06-26-2024 End: 06-28-2024 Telephone encounter Octavio Reza MD Work Phone: [facility] [place] Comment on above: Patient Update Start: 06-21-2024 End: 06-21-2024 ambulatory Rama Mckeon MA [facility] [place] Start: 06-21-2024 End: 06-21-2024 Patient encounter procedure Rama Mckeon MA [facility] Comment on above: Population Health Na vigation Outreach (AW[employer] INITIATIVE) Start: 06-19-2024 End: 06-19-2024 ambulatory OCTAVIO REZA Facility:[facility] Start: 06-19-2024 End: 06-20-2024 Patient encounter procedure Charis Lucas [facility] Work Phone: [facility] Comment on above: Type I diabetes chrissy itus with manifestations (HCC) (Primary Dx) Refill Request Start: 06-19-2024 End: 06-19-2024 Telemedicine consultation with patient Charis Lucas [facility] Work Phone: [facility] Start: 06-13-2024 End: 06-13-[address] Miguel Angel Bosch MD -[facility] Work Phone: Start: 06-13-2024 End: 06-13-2024 ambulatory Octavio Reza Facility:[facility] Start: 06-11-2024 End: 06-11-2024 ambulatory OCTAVIO REZA Facility:[facility] Start: 06-11-2024 End: 06-11-2024 Office outpatient visit 25 minutes Octavio Reza MD Work Phone: [facility] [place] Comment on above: Type I diabetes chrissy itus with manifestations (HCC) (Primary Dx); Acute cystitis without hematuria; Primary insomnia; Labile blood glucose; Uncomplicated severe persistent asthma; Palpitations; Essential hypertension; Severe persistent asthma without complication; Stasis edema of both lower extremities Start: 06-08-2024 End: 06-08-2024 Emergency department patient visit Dr. Reyna Godman DO -Emergency Department Work Phone: Start: 06-07-2024 ambulatory Ray Maradiaga Facility:[facility] Start: 06-07-2024 Non-patient / Non-visit Dr. Ray up MD -[facility] Start: 06-07-2024 ambulatory Miguel Angel Bosch Facility :[facility] Start: 06-07-2024 Non-patient / Non-visit Dr. Che Bosch MD -[facility] Work Phone: Start: 06-07-2024 ambulatory Octavio Reza Facilit y:[facility] Start: 06-07-2024 End: 06-07-2024 Patient encounter procedure Areli Estevez PA -[facility] Work Phone: Start: 06-06-2024 End: 06-07-2024 ambulatory Federica Alonzo RN Work Phone: [facility] Comment on above: Bi-weekly outreach ( Recurring) for Chronic Disease Management Start: 05-31-2024 End: 06-01-2024 Telephone encounter Octavio Reza MD Work Phone: [facility] [place] Comment on above: checking if lab work due Start: 05-27-2024 End: 05-27-2024 Emergency department patient visit Dr. Lars Dahl DO -Emergency Department Work Phone: Start: 05-25-2024 End: 06-27-2024 ambulatory Renetta Mcgee CLINICAL LAW PROFESSOR.PLATE SLITTER AND INSPECTOR Work Phone: Endocrinology Comment on above: elevated blood gluco se Start: 05-25-2024 End: 05-25-2024 Telephone encounter Renetta Mcgee CLINICAL LAW PROFESSOR.PLATE SLITTER AND INSPECTOR Work Phone: Endocrinology Comment on above: Patient Update Start: 05-25-2024 End: 05-25-2024 Emergency department patient visit Dr. Reyna Monzon DO -Emergency Department Work Phone: Start: 05-23-2024 End: 05-23-2024 ambulatory OCTAVIO REZA Facility:[facility] Start: 05-23-2024 End: 05-23-2024 Patient encounter procedure Renetta Mcgee APRN.PLATE SLITTER AND INSPECTOR Work Phone: Endocrinology Comment on above: Diabetes mellitus ty pe 1, controlled, without complications (HCC) (Primary Dx) Start: 05-22-2024 End: 05-22-2024 ambulatory Federica Alonzo RN Work Phone: [facility] Comment on above: Bi-weekly outreach ( Recurring) for Chronic Disease Management Start: 05-18-2024 End: 05-18-2024 Emergency department patient visit Holland Sanches Facility:[facility] Start: 05-10-2024 End: 05-11-2024 Telephone encounter Renetta Mcgee APRN.PLATE SLITTER AND INSPECTOR Work Phone: Endocrinology Comment on above: Patient Update Start: 05-07-2024 End: 05-07-2024 ambulatory [facility] Facility:[facility] Start: 05-07-2024 End: 05-07-2024 Patient encounter procedure Davon Wolfe CLINICAL LAW PROFESSOR.PLATE SLITTER AND INSPECTOR Work Phone: Internal Medicine [place] Comment on above: Dental abscess (Prim nancy Dx); 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); PAC (premature atrial contraction); PVC (premature ventricular contraction) Start: 05-04-2024 End: 05-04-2024 Emergency department patient visit Mark Castillo Facility:[facility] Start: 04-24-2024 End: 04-24-2024 ambulatory [facility] Facility:[facility] Start: 04-24-2024 End: 04-24-2024 Patient encounter procedure Charis Lucas [facility] Work Phone: [facility] Comment on above: Type I diabetes chrissy itus with manifestations (HCC) (Primary Dx); Diabetes mellitus type 1, controlled, without complications (HCC) Start: 04-24-2024 End: 04-24-2024 Telemedicine consultation with patient Charis Lucsa [facility] Work Phone: [facility] Start: 04-19-2024 End: 04-19-2024 ambulatory Federica Alonzo RN Work Phone: [employer] Comment on above: Bi-weekly outreach ( Recurring) for Chronic Disease Management Start: 04-18-2024 End: 04-18-2024 Subsequent hospital visit by physician Dominic [facility] [place] Work Phone: Radiology Comment on above: Acute cough [R05.1] Start: 04-18-2024 End: 04-18-2024 ambulatory [facility] Facility:[facility] Start: 04-18-2024 End: 04-18-2024 Patient encounter procedure Smiley Prieto CLINICAL LAW PROFESSOR.PLATE SLITTER AND INSPECTOR Work Phone: [facility] Comment on above: Acute cough (Primary Dx); URI, acute Start: 04-10-2024 End: 04-10-2024 ambulatory [facility] Facility:[facility] Start: 04-10-2024 End: 04-10-2024 Patient encounter procedure Charis Lucas [facility] Work Phone: [facility] Comment on above: Type I diabetes chrissy itus with manifestations (HCC) (Primary Dx) Start: 04-10-2024 End: 04-10-2024 Telemedicine consultation with patient Charis Lucas [facility] Work Phone: [facility] Start: 04-09-2024 End: 04-09-2024 Orders Only Renetta Mcgee CLINICAL LAW PROFESSOR.PLATE SLITTER AND INSPECTOR Work Phone: Endocrinology Comment on above: Medical Nutrition Th erapy (Type 1 Diabetes) Start: 04-04-2024 End: 04-04-2024 ambulatory Federica Alonzo RN Work Phone: [employer] Comment on above: Initial enrollment o ry for Chronic Disease Management Start: 03-30-2024 End: 03-30-2024 Patient encounter procedure Pulm [facility] Work Phone: [facility]UL[facility] LAB [facility] Comment on above: Moderate persistent asthma without complication (Primary Dx); Morbid obesity (HCC); THAIS (obstructive sleep apnea) Start: 03-30-2024 End: 03-30-2024 ambulatory [facility] Work Phone: [facility] Comment on above: Spirometry Start: 03-23-2024 End: 03-23-2024 Refill Octavio Reza MD Work Phone: Internal Medicine [place] Comment on above: Refill Request Start: 03-23-2024 End: 03-23-2024 ambulatory Octavio Reza Facility:[facility] Start: 03-22-2024 End: 03-22-2024 Telephone encounter Sergo Perez RD Work Phone: Endocrinology Start: 03-15-2024 End: 03-15-2024 Telephone encounter Ariane Tesfaye APRN.PLATE SLITTER AND INSPECTOR Work Phone: Pulmonary Medicine Comment on above: Symbicort needs auth orized Start: 03-14-2024 End: 03-14-2024 ambulatory Lydia Manuel RN Work Phone: [employer] Start: 03-12-2024 End: 03-12-2024 Telephone encounter Octavio Reza MD Work Phone: Internal Medicine [place] Comment on above: Medication Problem Start: 03-07-2024 End: 03-07-2024 Telephone encounter Jeannine Perkins MD Work Phone: Pulmonary Medicine Comment on above: Patient Update Start: 03-07-2024 End: 03-07-2024 ambulatory OCTAVIO REZA Facility:[facility] Start: 03-07-2024 End: 03-07-2024 Office outpatient visit 25 minutes Ariane Tesfaye APRN.PLATE SLITTER AND INSPECTOR Work Phone: Pulmonary Medicine Comment on above: Mild persistent asth ma without complication (Primary Dx); Shortness of breath Start: 03-06-2024 End: 03-07-2024 Telephone encounter Octavio Reza MD Work Phone: Family Medicine [place] Comment on above: Medication Problem Start: 03-05-2024 End: 03-05-2024 Telephone encounter Octavio Reza MD Work Phone: Internal Medicine [place] Comment on above: Orders Start: 03-02-2024 End: 03-02-2024 Emergency department patient visit [place] Facility:[facility] Start: 02-28-2024 End: 02-28-2024 ambulatory OCTAVIO REZA Facility:[facility] Start: 02-28-2024 End: 02-28-2024 Patient encounter procedure Charis Sandersdruniranjan [facility] Work Phone: [facility] Comment on above: Type I diabetes chrissy itus with manifestations (HCC) (Primary Dx) Start: 02-28-2024 End: 02-28-2024 Telemedicine consultation with patient Charis Sandersviviana [facility] Work Phone: [facility] Start: 02-20-2024 Telephone encounter Octavio carr MD Work Phone: Internal Medicine [place] Comment on above: Medication Problem Start: 02-15-2024 End: 02-15-2024 ambulatory OCTAVIO REZA Facility:[facility] Start: 02-15-2024 End: 02-15-2024 Patient encounter procedure Renetta Mcgee CLINICAL LAW PROFESSOR.PLATE SLITTER AND INSPECTOR Work Phone: Endocrinology Comment on above: Diabetes mellitus ty pe 1, controlled, without complications (HCC) (Primary Dx) Start: 02-13-2024 End: 02-13-2024 ambulatory OCTAVIO REZA Facility:[facility] Start: 02-13-2024 End: 02-13-2024 Office outpatient visit 40 minutes Octavio Reza MD Work Phone: Internal Medicine [place] Comment on above: Type I diabetes chrissy itus with manifestations (HCC) (Primary Dx); Primary insomnia; THAIS (obstructive sleep apnea); Encounter for immunization; Class 3 severe obesity due to excess calories with body mass index (BMI) of 45.0 to 49.9 in adult, unspecified whether serious comorbidity present (HCC); Seborrheic dermatitis Start: 02-06-2024 End: 02-06-2024 Emergency department patient visit Octavio Reza Facility:[facility] Start: 01-27-2024 End: 01-27-2024 ambulatory [facility] Facility:[facility] Start: 01-25-2024 Telephone encounter Octavio carr MD Work Phone: Internal Medicine [place] Comment on above: Orders (Lab Orders/) Start: 01-18-2024 End: 01-18-2024 Nursing evaluation of patient and report Tawanda Wolff RN Work Phone: Endocrinology Comment on above: Diabetes mellitus ty pe 1, controlled, without complications (HCC) Start: 01-18-2024 End: 01-18-2024 ambulatory [facility] Facility:[facility] Start: 01-15-2024 End: 01-16-2024 Emergency department patient visit [facility] Facility:[facility] Start: 01-12-2024 End: 01-12-2024 ambulatory [facility] Facility:[facility] Start: 01-12-2024 End: 01-12-2024 Patient encounter procedure Charis Flannerybill [facility] Work Phone: [facility] Comment on above: Type I diabetes chrissy itus with manifestations (HCC) (Primary Dx) Start: 01-12-2024 End: 01-12-2024 Telemedicine consultation with patient Charis Lucas [facility] Work Phone: [facility] Start: 01-02-2024 End: 01-02-2024 ambulatory [facility] Facility:[facility] Start: 01-02-2024 End: 01-02-2024 Patient encounter procedure Tamika Morris MD Work Phone: [facility] Comment on above: Localized swelling, mass and lump, neck (Primary Dx); Cutaneous horn Start: 12-26-2023 Telephone encounter Octavio carr MD Work Phone: Internal Medicine [place] Comment on above: Patient Update and q uestion Start: 12-09-2023 Telephone encounter Renetta marquez APRN.CNP Work Phone: Endocrinology Comment on above: Patient Question Start: 12-07-2023 Telephone encounter Octavio carr MD Work Phone: Internal Medicine [place] Comment on above: FYI-No Action Needed Start: 12-07-2023 End: 12-07-2023 Patient encounter procedure Renetta Paultiarahima CLINICAL LAW PROFESSOR.PLATE SLITTER AND INSPECTOR Work Phone: Endocrinology Comment on above: Diabetes mellitus ty pe 1, controlled, without complications (HCC) (Primary Dx); 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 Work [facility]: Start: 11-21-2023 Telephone encounter Davon Cleav er CLINICAL LAW PROFESSOR.PLATE SLITTER AND INSPECTOR Work Phone: Internal Medicine [place] Comment on above: Medication Question (side effects from insulin ) Start: 11-11-2023 Telephone encounter Davon Cleav er CLINICAL LAW PROFESSOR.PLATE SLITTER AND INSPECTOR Work Phone: Internal Medicine [place] Comment on above: Patient Update (call ing in BS) Start: 11-09-2023 End: 11-09-2023 Patient encounter procedure Davon Sotomayorr CLINICAL LAW PROFESSOR.PLATE SLITTER AND INSPECTOR Work Phone: Internal Medicine [place] Comment on above: Type I diabetes chrissy itus with manifestations (HCC) (Primary Dx); Encounter for medication management Start: 11-09-2023 Telephone encounter Octavio carr MD Work Phone: Internal Medicine [place] Comment on above: Appointment Start: 11-07-2023 End: 11-07-2023 Emergency department patient visit Dr. Octavio Reza [facility] Work Phone: Start: 11-07-2023 Telephone encounter Octavio carr MD Work Phone: Internal Medicine [place] Comment on above: Patient Question Start: 11-06-2023 End: 11-07-2023 Emergency department patient visit Dr. Octavio Reza [facility] Work [facility]: Start: 11-04-2023 Telephone encounter Octavio carr MD Work Phone: Internal Medicine [place] Comment on above: Blood sugar readings (Copy of recent BS readings attached to this encounter.) Start: 10-31-2023 ambulatory TAMIKA MORRIS Facili ty:[facility] Start: 10-31-2023 Telephone encounter Tamika Arshad MD Work Phone: [facility] Comment on above: Results (US negative for DVT) Start: 10-31-2023 End: 10-31-2023 Subsequent hospital visit by physician [facility] Comment on above: Pain and swelling of right lower leg [M79.661, M79.89] Start: 10-31-2023 End: 10-31-2023 Patient encounter procedure Tamika Morris MD Work Phone: [facility] Comment on above: Pain and swelling of right lower leg (Primary Dx) Start: 10-28-2023 End: 10-28-2023 Emergency department patient visit Dr. Octavio Reza [facility] Work [facility]: Start: 10-21-2023 Telephone encounter Octavio carr MD Work Phone: Internal Medicine [place] Comment on above: Blood Sugar Reading Start: 10-14-2023 Telephone encounter Octavio carr MD Work Phone: Internal Medicine [place] Comment on above: Blood sugar question Start: 10-03-2023 Telephone encounter Octavio carr MD Work Phone: Family Medicine [place] Comment on above: Medication Question Start: 10-01-2023 End: 10-01-2023 Emergency department patient visit Dr. Octavio Reza Work Phone: [facility] Work Phone: Start: 09-29-2023 Telephone encounter Octavio carr MD Work Phone: Internal Medicine [place] Comment on above: Orders Start: 09-29-2023 End: 09-29-[address] Octavio Reza Work Phone: [facility] Work Phone: Start: 09-26-2023 Telephone encounter Octavio carr MD Work Phone: Internal Medicine [place] Comment on above: Insurance Authorizat ion (glucose test strips /) Start: 09-23-2023 Refill Octavio coulter MD Work Phone: Internal Medicine [place] Comment on above: Refill Request Start: 09-22-2023 End: 09-22-2023 Patient encounter procedure Jeannine Perkins MD Work Phone: Pulmonary Medicine Comment on above: Mild persistent asth ma without complication (Primary Dx); Morbid obesity (HCC); THAIS (obstructive sleep apnea) Start: 09-21-2023 End: 09-21-2023 Office outpatient visit 25 minutes Octavio Reza MD Work Phone: Internal Medicine [place] Comment on above: PSVT (paroxysmal sup raventricular tachycardia) (HCC) (Primary Dx); PAC (premature atrial contraction); Primary insomnia Start: 09-21-2023 End: 09-21-2023 Emergency department patient visit [facility] Work Phone: Start: 09-16-2023 End: 09-16-2023 Non-patient / Non-visit Dr. Octavio Reza Work Phone: [facility] Work Phone: Start: 09-16-2023 End: 09-16-2023 ambulatory [facility] Work Phone: Start: 09-16-2023 End: 09-16-2023 Patient encounter procedure [facility] Work Phone: Start: 09-16-2023 End: 09-16-2023 [facility]: Start: 09-05-2023 Telephone encounter Lydia Saad butler APRN.[employer] Work Phone: Internal Medicine [place] Comment on above: Results Start: 09-01-2023 End: 09-01-2023 Office outpatient visit 25 minutes Lydia Grande CLINICAL LAW PROFESSOR.[employer] Work Phone: Internal Medicine [place] Comment on above: Polyarthralgia (Prim nancy Dx); 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); Vitamin D deficiency; Pain in finger of both hands Start: 06-23-2023 End: 06-23-2023 ambulatory [facility]m [facility] Work Phone: P[facility] LAB [facility] Comment on above: Spirometry Start: 06-23-2023 End: 06-23-2023 Office outpatient visit 25 minutes Tierney Nunez PA-C Work Phone: Pulmonary Medicine Comment on above: Severe persistent as thma without complication (Primary Dx); Obesity, Class III, BMI 40-49.9 (morbid obesity) (HCC) Start: 06-23-2023 End: 06-23-2023 Patient encounter procedure [facility] Work Phone: [facility] Start: 06-14-2023 Refill Octavio coulter MD Work Phone: Internal Medicine [place] Comment on above: Refill Request Start: 05-28-2023 End: 05-28-2023 [facility]: Start: 05-23-2023 End: 05-23-2023 Office outpatient visit 40 minutes Octavio Reza MD Work Phone: Internal Medicine [place] Comment on above: Type I diabetes chrissy itus with manifestations (HCC) (Primary Dx); Essential hypertension; Psoriasis of scalp; Vitamin D deficiency; Class 3 severe obesity due to excess calories with body mass index (BMI) of 45.0 to 49.9 in adult, unspecified whether serious comorbidity present (HCC); Charcot foot due to diabetes mellitus (HCC); Encounter for immunization Start: 05-16-2023 End: 05-16-2023 Patient encounter procedure Anant Lees MD Work Phone: Cardiology Comment on above: Paroxysmal SVT (supr aventricular tachycardia) (Primary Dx); Palpitations Start: 03-22-2023 End: 03-22-[address] Octavio Reza Work Phone: [facility] Work Phone: Start: 03-22-2023 End: 03-22-[address] Octavio Reza Work Phone: [facility] Work Phone: Start: 02-28-2023 Refill Octavio coulter MD Work Phone: Family Medicine [place] Comment on above: Refill Request Start: 02-21-2023 Telephone encounter Octavio carr MD Work Phone: Internal Medicine [place] Comment on above: patient asking for 3 D mamm order fax to [facility] Start: 02-13-2023 End: 02-13-2023 Emergency department patient visit Dr. Octavio Reza Work Phone: [facility] Work Phone: Start: 01-17-2023 End: 01-17-2023 Office outpatient visit 40 minutes Octavio Reza MD Work Phone: Internal Medicine [place] Comment on above: Psoriasis of scalp ( Primary Dx); Seborrheic dermatitis; Essential hypertension; Palpitations; History of delirium Start: 12-07-2022 Non-patient / Non-visit Dr. Daniel Reza Work Phone: [facility] Start: 12-07-2022 End: 12-07-[address] Octavio Reza Work Phone: [facility] Work Phone: Start: 12-07-2022 End: 12-07-[address] Octavio Reza Work Phone: [facility] Start: 11-22-2022 End: 11-22-[address] Octavio Reza Work Phone: [facility] Start: 11-04-2022 End: 11-04-2022 Emergency department patient visit Dr. Octavio Reza Work Phone: [facility] Start: 10-11-2022 End: 10-11-2022 Emergency department patient visit Dr. [facility] Re[facility] Start: 10-05-2022 Telephone encounter Octavio carr MD Work Phone: Internal Medicine [place] Comment on above: Lump on anus Start: 10-05-2022 End: 10-05-2022 Patient encounter procedure Davon Wolfe APRN.PLATE SLITTER AND INSPECTOR Work Phone: Internal Medicine [place] Comment on above: Labial abscess (Prim nancy Dx); Bradycardia Start: 10-01-2022 Telephone encounter Octavio carr MD Work Phone: Internal Medicine [place] Comment on above: Patient Question Start: 10-01-2022 End: 10-01-2022 Emergency department patient visit Dr. Octavio Reza Work Phone: [facility] Start: 09-30-2022 Telephone encounter Octavio carr MD Work Phone: Internal Medicine [place] Comment on above: Medication Problem Start: 09-27-2022 Telephone encounter Trudy rabago APRN.PLATE SLITTER AND INSPECTOR Work Phone: OB/Gynecology Comment on above: Vulvar problem Start: 09-15-2022 Telephone encounter Octavio carr MD Work Phone: Internal Medicine [place] Comment on above: [facility] - medication question Start: 09-14-2022 Telephone encounter Octavio carr MD Work Phone: Internal Medicine [place] Comment on above: Results Start: 09-07-2022 End: 09-07-2022 Office outpatient visit 25 minutes Octavio Reza MD Work Phone: Internal Medicine [place] Comment on above: Essential hypertensi on (Primary Dx); Palpitations; 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) Start: 09-01-2022 Telephone encounter Octavio carr MD Work Phone: Internal Medicine [place] Comment on above: discharging from OT Start: 08-31-2022 Telephone encounter Octavio carr MD Work Phone: Internal Medicine [place] Comment on above: Home Health Point of Care Results Start: 08-20-2022 Telephone encounter Octavio carr MD Work Phone: Internal Medicine [place] Comment on above: Interium C OT POC Start: 08-17-2022 End: 08-17-2022 Office outpatient visit 40 minutes Octavio Reza MD Work Phone: Internal Medicine [place] Comment on above: Pneumonia due to COV ID-19 virus (Primary Dx); Hypoxemia; 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 Daniel Reza Work Phone: [facility] Start: 08-01-2022 Non-patient / Non-visit Dr. Daniel Reza Work Phone: [facility] Start: 07-31-2022 End: 08-02-2022 Evaluation and management of inpatient Dr. Octavio Reza Work Phone: [facility] Start: 07-31-[address] Octavio Reza Work Phone: [facility] Work Phone: Start: 2022 Telephone encounter Octavio carr MD Work Phone: Internal Medicine [place] Comment on above: Patient Update Start: 07-29-2022 Telephone encounter Claudia Shoemaker [facility] Comment on above: Social Work Services Occupational Therapy Plan of Care Start: 07-28-2022 Refill Octavio coulter MD Work Phone: Internal Medicine [place] Comment on above: Refill Request Start: 07-26-2022 Telephone encounter Octavio carr MD Work Phone: Internal Medicine [place] Comment on above: Physical Therapy Damari n of Care; FYI-No Action Needed Patient Update; Orde rs Start: 07-23-2022 Non-patient / Non-visit Dr. Daniel Reza Work Phone: [facility] Start: 07-22-2022 Non-patient / Non-visit Dr. Daniel Reza Work Phone: [facility] Start: 07-21-2022 End: 07-21-2022 Non-patient / Non-visit Dr. Octavio Reza Work Phone: [facility] Start: 07-21-2022 Non-patient / Non-visit Dr. Daniel Reza Work Phone: [facility] Start: 07-20-2022 Non-patient / Non-visit Dr. Daniel Reza Work Phone: [facility] Start: 07-19-2022 Non-patient / Non-visit Dr. Daniel Reza Work Phone: [facility] Start: 07-18-2022 Non-patient / Non-visit Dr. Daniel Reza Work Phone: [facility] Start: 07-18-2022 End: 07-24-2022 Evaluation and management of inpatient Dr. Octavio Reza Work Phone: [facility] Start: 07-16-2022 ambulatory Daina Kaye RN NURSE O N CALL Comment on above: High Blood Sugar Start: 07-16-2022 Telephone encounter Octavoi carr MD Work Phone: Internal Medicine [place] Comment on above: Oxygen concern Start: 07-14-2022 Non-patient / Non-visit Dr. Daniel Reza Work Phone: [facility] Start: 07-13-2022 Non-patient / Non-visit Dr. Daniel Reza Work Phone: [facility] Start: 07-12-2022 Non-patient / Non-visit Dr. Daniel Reza Work Phone: [facility] Start: 07-11-2022 Non-patient / Non-visit Dr. Daniel Reza Work Phone: [facility] Start: 07-10-2022 Non-patient / Non-visit Dr. Daniel Reza Work Phone: [facility] Start: 07-10-2022 End: 07-14-2022 Evaluation and management of inpatient Dr. Octavio Reza Work Phone: [facility] 3 Start: 06-22-2022 End: 06-22-[address] 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) (Primary Dx); Vitamin D deficiency; Mixed hyperlipidemia; Insomnia, unspecified type; Stasis edema of both lower extremities; Morbid obesity with BMI of 45.0-49.9, adult (HCC); Encounter for long-term current use of medication; Encounter for immunization Start: 05-14-2022 Telephone encounter Octavio carr MD Work Phone: Internal Medicine [place] Comment on above: Lab Orders Start: 04-03-2022 ambulatory Latrell Medina RN NURS E [employer]OX INST[employer]ER Comment on above: Medication Question Start: 04-03-2022 Telephone encounter Octavio carr MD Work Phone: Internal Medicine [place] Comment on above: Medication Problem Start: 03-31-2022 Refill Octavio coulter MD Work Phone: Internal Medicine [place] Comment on above: Refill Request; Medi cation Problem Start: 03-10-2022 End: 03-10-[address] Octavio Reza Work Phone: [facility] Work Phone: Start: 03-10-2022 End: 03-10-[address] Octavio Reza Work Phone: [facility] Start: 02-15-2022 End: 02-15-2022 Patient encounter procedure Lydia Grande APRN.CNS Work Phone: Internal Medicine [place] Comment on above: Palpitations (Primar y Dx); Encounter for immunization Start: 02-11-2022 End: 02-11-2022 Emergency department patient visit Dr. 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 Octavio Reza Work Phone: [facility] Start: 12-17-2021 Telephone encounter Octavio carr MD Work Phone: Internal Medicine [place] Comment on above: Patient Question Start: 12-17-2021 End: 12-17-2021 Subsequent hospital visit by physician [facility]ic [facility] Work Phone: Radiology Comment on above: Pain of right upper extremity [M79.601] Start: 12-17-2021 End: 12-17-2021 Patient encounter procedure Wanda Phillips APRN.CNP Work Phone: [facility] Comment on above: Pain of right upper extremity (Primary Dx) Start: 12-16-2021 End: 12-16-2021 Orders Only Jeannine Perkins MD Work Phone: Pulmonary Medicine Comment on above: Chest pain, unspecif ied type (Primary Dx) Refill Request Chest pain, unspecif ied type [R07.9] Start: 12-04-2021 Telephone encounter Octavio carr MD Work Phone: Internal Medicine [place] Comment on above: Eye issue Start: 11-06-2021 Telephone encounter Holland avalos MD Work Phone: General Surgery Comment on above: Results (colonoscopy ) Start: 10-29-2021 End: 10-29-2021 Subsequent hospital visit by physician Holland Carmichael MD Work Phone: Ambulatory Surgery Comment on above: Screening for colon cancer [Z12.11] Start: 10-27-2021 Telephone encounter Holland avalos MD Work Phone: General Surgery Comment on above: Surgery Cancelled (c olonoscopy with Dr. Carmichael on 10/29/2021) High blood pressure Start: 10-26-2021 Telephone encounter Octavio carr MD Work Phone: [facility] [place] Comment on above: Follow Up (BP) Start: 10-22-2021 Refill Octavio coulter MD Work Phone: [facility] [place] Comment on above: Refill Request Start: 10-21-2021 Telephone encounter Octavio carr MD Work Phone: [facility] [place] Comment on above: Patient Question Start: 09-22-2021 Telephone encounter Holland avalos MD Work Phone: General Surgery Comment on above: 10-29-2021 Colon [facility] Start: 09-11-2021 End: 09-11-2021 Office outpatient visit 25 minutes Octavio Reza MD Work Phone: Internal Medicine [place] Comment on above: 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 Octavio Reza MD Work Phone: Start: 11-29-2024 Urnls dip stick/tabl et reagent auto microscopy Dr. Octavio Reza MD Work Phone: Start: 10-19-2024 Urnls dip stick/tabl et reagent auto microscopy Dr. Octavio Reza MD Work Phone: Start: 10-19-[address] Octavio Reza MD Work Phone: Start: 10-19-2024 Plain x-ray of pelvi s and lower extremity Dr. Octavio Reza MD Work Phone: Start: 09-23-[address] Octavio Reza MD Work Phone: Start: 09-23-2024 Measurement of occul t blood in stool specimen using immunoassay Dr. Octavio Reza MD Work Phone: Start: 09-21-[address] Octavio Reza MD Work Phone: Start: 09-20-2024 Computed tomography of abdomen and pelvis with intravenous contrast Dr. Octavio Reza MD Work Phone: Start: 09-20-2024 Urnls dip stick/tabl et reagent auto microscopy Dr. Octavio Reza MD Work Phone: Start: 09-20-2024 SARS-CoV-2, Influenz a & RSV (PCR) Dr. Octavio Reza MD Work Phone: Start: 09-20-[address] Octavio Reza MD Work Phone: Start: 07-02-2024 Plain chest X-ray Dr. Sigifredo Reza MD Work Phone: Start: 06-13-2024 Evaluation of diagno stic study results Dr. Octavio Reza MD Work Phone: Start: 06-08-[address] Octavio Reza MD Work Phone: Start: 06-07-2024 Cardiovascular stres s test using pharmacologic stress agent Dr. Octavio Reza MD Work Phone: Start: 05-27-2024 X-ray of chest, PA a nd lateral views Dr. Octavio Reza MD Work Phone: Start: 05-25-2024 X-ray of chest, PA a nd lateral views Dr. Octavio Reza MD Work Phone: Start: 05-23-2024 Hemoglobin A1c/Hemoglobin.total in Blood Renetta C Cioce CLINICAL LAW PROFESSOR.PLATE SLITTER AND INSPECTOR Work Phone: Start: 04-18-2024 Radiologic exam ches t 2 views Smiley Prieto CLINICAL LAW PROFESSOR.PLATE SLITTER AND INSPECTOR Work Phone: Start: 03-30-2024 Nitric oxide gas determination Jeannine Perkins MD Work Phone: Start: 11-06-2023 Plain chest X-ray Dr. Sigifredo Reza Work Phone: Start: 10-31-2023 Dup-scan xtr veins unilateral/limited study Tamika Morris MD Work Phone: Start: 10-01-2023 Plain chest X-ray Dr. Sigifredo Reza Work Phone: Start: 10-01-2023 SARS-CoV-2, Influenz a & RSV (PCR) Dr. Octavio Reza Work Phone: Start: 09-21-2023 Plain chest X-ray Start: 06-23-2023 Noninvasive ear/puls e oximetry multiple deter Tierney Nunez PA-C Work Phone: Start: 06-23-2023 Nitric oxide gas determination Tierney Nunez PA-C Work Phone: Start: 05-28-2023 Plain chest X-ray Start: 03-22-2023 Screening mammography Jodi Reza Work Phone: Start: 11-04-2022 Plain chest X-ray Dr. Sigifredo Reza Work Phone: Start: 10-11-2022 Plain chest X-ray Dr. Sigifredo Reza Work Phone: Start: 10-01-2022 Plain chest X-ray Dr. Sigifredo Reza Work Phone: Start: 08-01-2022 CT of thorax with contrast Dr. Octavio Reza Work Phone: Start: 07-31-2022 Plain chest X-ray Dr. Sigifredo Reza Work Phone: Start: 07-31-2022 CT of head without contrast Dr. Octavio Reza Work Phone: Start: 07-17-2022 Plain chest X-ray Dr. Sigifredo Reza Work Phone: Start: 07-10-2022 Plain chest X-ray Dr. Sigifredo Reza Work Phone: Start: 05-18-2022 INFLUENZA SEASONAL QUADRIVALENT HIGH DOSE AGE 65+ Octavio Reza MD Work Phone: Start: 03-10-2022 Screening mammography D caro Reza Work Phone: Start: 12-17-2021 Radex humerus minimu m 2 views Wanda Phillips CLINICAL LAW PROFESSOR.PLATE SLITTER AND INSPECTOR Work Phone: Start: 12-16-2021 Radiologic exam ches t 2 views Jeannine Perkins MD Work Phone: Start: 10-29-2021 Colon ca scrn not hi rsk ind Holland Carmichael MD Work Phone: Start: 10-29-2021 Colonoscopy Holland gandhi MD Work Phone: Start: 11-22-2016 End: 11-22-2016 Follow Up Appt 1 year Chris Zapata Start: 11-22-2016 End: 11-22-2016 PFSahara Lott MD Start: 07-21-2015 End: 07-21-2015 Follow Up Appt 1 year Chris Zapata Start: 07-21-2015 End: 07-21-2015 JONNATHAN Lott MD Start: 01-06-2015 End: 01-07-2015 Documentation [...] Lott MD Start: 03-15-2012 End: 03-15-2012 Electrocardiogram, complete Chris torres MD Start: 03-15-2012 End: 03-15-2012 Follow Up Appt 6 months Chris Lott MD Start: 01-20-2012 End: 03-23-2013 Remote 30 day ecg rev/report Chris Lott MD Bacteria identified in Blood by Culture Dr. Octavio Reza Work Phone: Bacteria identified in Blood by Culture Dr. Octavio Reza Work Phone: Investigation of transfusion reaction Dr. Octavio Reza Work Phone: Investigation of transfusion reaction Dr. Octavio Reza Work Phone: Respiratory microbia l culture Dr. Octavio Reza Work Phone: Respiratory microbia l culture Dr. Octavio Reza Work Phone: SARS-CoV-2 & FLU Ant igen (Rapid) Dr. Octavio Reza Work Phone: SARS-CoV-2 & FLU Ant igen (Rapid) Dr. Octavio Reza Work Phone: Streptococcus pneumo niae Antigen (M Dr. Octavio Reza Work Phone: Streptococcus pneumo niae Antigen (M Dr. Octavio Reza Work Phone: Urine culture Dr. Octavio mae Work Phone: Urine culture Dr. Octavio mae Work Phone: Urine culture Dr. Octavio mae Work Phone: Viral antigen assay Dr. Octavio Reza Work Phone: Viral antigen assay Dr. Octavio Reza Work Phone: Plan of Treatment Date Care Activity Detail Author Start: 10-29-2026 Colonoscopy COLONOSCOPY [facility] Start: 10-29-2026 COLORECTAL CANCER SCREENING COLORECTAL CANCER SCREENING [facility] Start: 10-29-2026 Screening for malignant neoplasm of colon [facility] Start: 10-15-2025 Annual PCP Team Chronic Disease Visit Annual PCP Team Chronic Disease Visit [facility] Start: 10-01-2025 Hepatitis B screening Urine Albumin:Creatinine Ratio [facility] Start: 09-26-2025 Annual PCP Team Chronic Disease Visit Annual PCP Team Chronic Disease Visit [facility] Start: 08-20-2025 Hepatitis B screening Urine Albumin:Creatinine Ratio [facility] Start: 08-20-2025 Hepatitis B surface antibody level LDL Cholesterol [facility] Start: 07-24-2025 Glaucoma screening Dilated Retinal Exam [facility] Start: 07-23-2025 End: 07-23-2025 Patient encounter procedure 07/23/2025 9:40 AM EST Office Visit [facility] [place] [address] [place] [address] Octavio Reza MD [address] [place] [address] 4 month f/up [facility] [place] Comment on above: 4 month f/up Start: 06-11-2025 Annual PCP Team Chronic Disease Visit Annual PCP Team Chronic Disease Visit [facility] Start: 06-11-2025 BP Controlled (<130/80) BP Controlled (<130/80) [facility] Start: 05-07-2025 Annual PCP Team Chronic Disease Visit Annual PCP Team Chronic Disease Visit [facility] Start: 03-18-2025 Influenza vaccination Influenza Vaccine (Season Ended) [facility] Start: 02-25-2025 End: 02-25-2025 Patient encounter procedure 02/25/2025 9:00 AM EDT [facility] [address] [phone] [facility] [address] [place] [address] DM f/up [facility] Comment on above: DM f/up Start: 02-17-2025 Hemoglobin A1c measurement HbA1C [facility] Start: 02-12-2025 Annual PCP Team Chronic Disease Visit Annual PCP Team Chronic Disease Visit [facility] Start: 02-12-2025 Covid-19 Vaccine ( season) Covid-19 Vaccine ( season) [facility] Comment on above: Postponed from 03/18/2023 (Declined at t his time) Start: 02-06-2025 End: 02-06-2025 Patient encounter procedure 02/06/2025 12:15 PM EDT Office Visit [facility] [address] [facility] [address] [place] [address] Renetta Mcgee, CLINICAL LAW PROFESSOR.PLATE SLITTER AND INSPECTOR [address] [place] [address] 6 MTH F/U Endocrinology Comment on above: 6 MTH F/U Start: 01-26-2025 Hepatitis B surface antibody level LDL Cholesterol [facility] Start: 01-15-2025 End: 01-15-2025 Patient encounter procedure [facility] [place] Comment on above: 4 month follow up [employer] Start: 01-14-2025 Influenza vaccination [facility] Vaccine (#[facility] Comment on above: Postponed from 03/18/2024 (Declined at t his time) Start: 12-30-2024 End: 03-31-2025 25-hydroxyvitamin D3 [Mass/volume] in Serum or Plasma VITAMIN D 25 HYDROXY Lab Routine Vitamin D deficiency Expected: 12/30/2024 (Approximate), Expires: 03/31/2025 [facility] Comment on above: Expected: 12/30/2024 (Approximate), Expi res: 03/31/2025 Start: 12-30-2024 End: 03-31-2025 Hemoglobin A1c in Blood HEMOGLOBIN A1C Lab Routine 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) Expected: 12/30/2024 (Approximate), Expires: 03/31/2025 [facility] Work Phone: Comment on above: Expected: 12/30/2024 (Approximate), Expi res: 03/31/2025 Start: 12-26-2024 Glaucoma screening Dilated Retinal Exam [facility] Start: 12-19-2024 [facility] Start: 12-18-2024 End: 12-18-2024 Patient encounter procedure 12/18/2024 9:00 AM EDT [facility] [address] [phone] Charis Lucas, [facility] [address] [place] [address] DM f/up [facility] Comment on above: DM f/up Start: 11-29-2024 [facility] Start: 11-28-2024 End: 11-28-2024 Patient encounter procedure 11/28/2024 9:15 AM EDT Office Visit Endocrinology [address] [place] [address] Renetta Mcgee APRN.PLATE SLITTER AND INSPECTOR [address] [place] [address] 6 MTH F/U Endocrinology Comment on above: 6 MTH F/U Start: 11-20-2024 Hemoglobin A1c measurement HbA1C [facility] Start: 11-08-2024 Annual PCP Team Chronic Disease Visit Annual PCP Team Chronic Disease Visit [facility] Start: 11-06-2024 End: 11-06-2024 Patient encounter procedure 11/06/2024 9:00 AM EDT [facility] [address] [phone] [facility] [address] [place] [address] DM f/up [facility] Comment on above: DM f/up Start: 11-03-2024 [facility] Start: 10-31-2024 End: 10-31-2024 Patient encounter procedure 10/31/2024 3:15 PM EDT Office Visit Endocrinology [address] [place] [address] Renetta Mcgee APRN.PLATE SLITTER AND INSPECTOR [address] [place] [address] High blood sugars Endocrinology Comment on above: High blood sugars Start: 10-24-2024 [facility] Start: 10-19-2024 [facility] Start: 10-15-2024 End: 10-15-2024 Patient encounter procedure 10/15/2024 1:40 PM EDT Office Visit [facility] [place] [address] [place] [address] Octavio Reza MD [address] [place] [address] 4 month follow up [facility] [place] Comment on above: 4 month follow up Start: 10-01-2024 End: 10-01-2024 ambulatory 10/01/2024 9:00 AM EDT Education Endocrinology [address] [place] [address] Sergo Perez, MEMO [address] [address] 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) (review 09/13/24 tele enc) Endocrinology Comment on above: Type I diabetes mellitus with manifestat ions (HCC) (review 09/13/24 tele enc) Start: 09-28-2024 End: 09-28-2024 Patient encounter procedure 09/28/2024 2:45 PM EDT Office Visit Pulmonary Medicine [address] [place] [address] Jeannine Perkins MD [address] [place] [address] [facility] Comment on above: [place] Start: 09-28-2024 End: 09-28-2024 ambulatory 09/28/2024 2:30 PM EDT Procedure PULM LAB [facility] [address] [place] [address] Wstr, Pulm Lab [facility] [address] [place] [address] [place] [facility] Comment on above: [place] Start: 09-26-2024 End: 12-26-2024 CBC panel - Blood by Automated count COMPLETE BLOOD COUNT Lab Routine 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) Anemia, unspecified type Expected: 09/26/2024, Expires: 12/26/2024 [facility] Comment on above: Expected: 09/26/2024, Expires: Start: 09-26-2024 End: 12-26-2024 Comprehensive metabolic 2000 panel - Serum or Plasma COMPREHENSIVE METABOLIC PANEL Lab Routine 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) Anemia, unspecified type Expected: 09/26/2024, Expires: 12/26/2024 [facility] Work Phone: Comment on above: Expected: 09/26/2024, Expires: Start: 09-26-2024 End: 09-26-2024 Patient encounter procedure 09/26/2024 10:00 AM EDT Office Visit [facility] [place] [address] [place], [place] [phone] Octavio Reza MD [address] [place] [address] [facility] ER f/u 09-21-24 diarrhea [facility] [place] Comment on above: [facility] ER f/u 09-21-24 diarrhea Start: 09-21-2024 [facility] Start: 09-20-2024 [facility] Start: 09-20-2024 [facility] Start: 09-20-2024 Annual PCP Team Chronic Disease Visit Annual PCP Team Chronic Disease Visit [facility] Start: 09-20-2024 Bacteria identified in Urine by Culture Urine Culture [facility] Start: 09-10-2024 End: 09-10-2024 Patient encounter procedure 09/10/2024 9:00 AM [facility] [address] [phone] [facility] [address] [place] [address] DM f/up [facility] Comment on above: DM f/up Start: 09-02-2024 Hepatitis B screening Urine Albumin:Creatinine Ratio [facility] Start: 07-31-2024 End: 07-31-2024 Patient encounter procedure 07/31/2024 9:00 AM [facility] [address] [phone] [facility] [address] [place] [address] DM f/up [facility] Comment on above: DM f/up Start: 07-28-2024 [facility] Start: 07-18-2024 Advance Directive Discussion Advance Directive Discussion [facility] Start: 07-18-2024 End: 10-17-2024 Comprehensive metabolic 2000 panel - Serum or Plasma COMPREHENSIVE METABOLIC PANEL Lab Routine Diabetes mellitus type 1, controlled, without complications (HCC) Expected: 07/18/2024, Expires: 10/17/2024 [facility] Work Phone: Comment on above: Expected: 07/18/2024, Expires: Start: 07-18-2024 End: 10-17-2024 Hemoglobin A1c in Blood HEMOGLOBIN A1C Lab Routine Diabetes mellitus type 1, controlled, without complications (HCC) Expected: 07/18/2024, Expires: 10/17/2024 [facility] Comment on above: Expected: 07/18/2024, Expires: Start: 07-18-2024 End: 10-17-2024 LIPID PANEL, NONFASTING LIPID PANEL, NONFASTING Lab Routine Diabetes mellitus type 1, controlled, without complications (HCC) Expected: 07/18/2024, Expires: 10/17/2024 [facility] Comment on above: Expected: 07/18/2024, Expires: Start: 07-18-2024 End: 10-17-2024 Microalbumin/Creatinine [Mass Ratio] in Urine [facility] Comment on above: Expected: 07/18/2024, Expires: Expected: 07/18/2024 (Approximate), Expires: 10/17/2024 Start: 07-03-2024 End: 07-03-2024 Patient encounter procedure 07/03/2024 2:20 PM EST Office Visit [facility] [place] [address] [place], [place] [phone] Lydia Grande APRN.[employer] [address] [place] [address] BP check, see 06/29/24 Phone Encounter for details [facility] [place] Comment on above: BP check, see 06/29/24 Phone Encounter f or details Start: 07-03-2024 [facility] Start: 06-29-2024 Glaucoma screening Dilated Retinal Exam [facility] Start: 06-27-2024 End: 09-26-2024 Bacteria identified in Urine by Culture URINE CULTURE Microbiology Routine Acute cystitis without hematuria Expected: 06/27/2024, Expires: 09/26/2024 [facility] Comment on above: Expected: 06/27/2024, Expires: 5 Start: 06-27-2024 End: 09-26-2024 Urinalysis complete panel - Urine URINALYSIS, WITH MICROSCOPIC Lab Routine Acute cystitis without hematuria Expected: 06/27/2024, Expires: 09/26/2024 [facility] Work Phone: Comment on above: Expected: 06/27/2024, Expires: 5 Start: 06-19-2024 End: 06-19-2024 Patient encounter procedure 06/19/2024 9:00 AM EST [facility] [address] [phone] PaneccaCharis michelle, [facility] [address] [place], [place] [phone] DM f/up [facility] Comment on above: DM f/up Start: 06-15-2024 End: 06-15-2024 Patient encounter procedure Neurology Comment on above: THAIS (obstructive sleep apnea) [G47.33] Patient wants appt c anceled- THAIS (obstructive sleep apnea) [G47.33]- referral placeed states pt has not tolerated bipap, wears O2 @ hs, takes ambien, sleep study done at [facility] Start: 06-11-2024 End: 06-11-2024 Patient encounter procedure 06/11/2024 9:00 AM EST Office Visit [facility] [place] [address] [place], [place] [phone] Octavio Reza MD [address] [place], [place] [phone] 4 month follow up [facility] [place] Comment on above: 4 month follow up Start: 06-08-2024 [facility] Start: 06-08-2024 Hemoglobin A1c measurement HbA1C [facility] Start: 06-07-2024 End: 06-07-2024 Patient encounter procedure 06/07/2024 11:00 AM EST Office Visit Neurology [address] [place] [address] Rehana Osorio APRN.PLATE SLITTER AND INSPECTOR [address] [place] [address] THAIS (obstructive sleep apnea) [G47.33] Neurology Comment on above: THAIS (obstructive sleep apnea) [G47.33] Start: 05-27-2024 [facility] Start: 05-27-2024 [facility] Start: 05-25-2024 [facility] Start: 05-23-2024 Annual PCP Team Chronic Disease Visit Annual PCP Team Chronic Disease Visit [facility] Start: 05-23-2024 End: 05-23-2024 Patient encounter procedure 05/23/2024 12:45 PM EST Office Visit Endocrinology [address] [place] [address] Renetta Mcgee APRN.PLATE SLITTER AND INSPECTOR [address] [place] [address] 3 mo follow up Endocrinology Comment on above: 3 mo follow up Start: 05-18-2024 End: 08-17-2024 Comprehensive metabolic 2000 panel - Serum or Plasma COMPREHENSIVE METABOLIC PANEL Lab Routine Diabetes mellitus type 1, controlled, without complications (HCC) Expected: 05/18/2024, Expires: 08/17/2024 [facility] Work Phone: Comment on above: Expected: 05/18/2024, Expires: Start: 05-18-2024 End: 08-17-2024 Hemoglobin A1c in Blood HEMOGLOBIN A1C Lab Routine Diabetes mellitus type 1, controlled, without complications (HCC) Expected: 05/18/2024, Expires: 08/17/2024 [facility] Comment on above: Expected: 05/18/2024, Expires: Start: 05-18-2024 End: 08-17-2024 LIPID PANEL, NONFASTING LIPID PANEL, NONFASTING Lab Routine Diabetes mellitus type 1, controlled, without complications (HCC) Expected: 05/18/2024, Expires: 08/17/2024 [facility] Comment on above: Expected: 05/18/2024, Expires: Start: 05-18-2024 End: 08-17-2024 Microalbumin/Creatinine [Mass Ratio] in Urine ALBUMIN/CREATININE RATIO, URINE Lab Routine Diabetes mellitus type 1, controlled, without complications (HCC) Expected: 05/18/2024, Expires: 08/17/2024 [facility] Comment on above: Expected: 05/18/2024, Expires: Start: 05-16-2024 BP Controlled (<130/80) BP Controlled (<130/80) [facility] Start: 05-14-2024 End: 05-14-2024 Patient encounter procedure 05/14/2024 3:20 PM EDT Office Visit Cardiology [address] [place] [phone] Anant Lees MD [address] [facility] [address] [place] [address] 1 year follow up Cardiology Comment on above: 1 year follow up Start: 04-24-2024 End: 04-24-2024 Patient encounter procedure 04/24/2024 9:30 AM EDT [facility] [address] [phone] Charis Lucas, [facility] [address] [place] [address] DM f/up [facility] Comment on above: DM f/up Start: 04-10-2024 End: 04-10-2024 Patient encounter procedure 04/10/2024 9:00 AM EDT [facility] [address] [phone] Charis Lucas, [facility] [address] [place] [address] DM f/up [facility] Comment on above: DM f/up Start: 04-09-2024 End: 04-09-2024 Follow-up encounter 04/09/2024 10:00 AM EDT Education Endocrinology [address] [place] [address] Sergo Perez, MEMO [address] [phone] follow up Endocrinology Comment on above: follow up Start: 03-30-2024 End: 03-30-2024 Patient encounter procedure 03/30/2024 2:15 PM EDT Office Visit Pulmonary Medicine [address] [place] [address] Jeannine Perkins MD [address] [place] [address] KEZIA / 6 MTH F/U [facility] Pulmonary Medicine Comment on above: KEZIA / 6 MTH F/U [facility] Start: 03-30-2024 End: 03-30-2024 ambulatory 03/30/2024 2:00 PM EDT Procedure PULM LAB [facility] [address] [place] [address] Wstr, Pulm Lab [facility] [address] [place] [address] KEZIA / 6 MTH F/U ASTHMA PULM LAB [facility] Comment on above: KEZIA / 6 MTH F/U ASTHMA Start: 03-22-2024 End: 03-22-2024 ambulatory 03/22/2024 9:00 AM EDT [facility] [address] [place] [address] Sergo Perez, MEMO [address] [id number] Diabetes mellitus type 1, controlled, without complications (HCC) [E10.9], pt is acting for a phone call visit Endocrinology Comment on above: Diabetes mellitus type 1, controlled, wi thout complications (HCC) [E10.9], pt is acting for a phone call visit Start: 03-18-2024 Covid-19 Vaccine ( season) Covid-19 Vaccine () [facility] Start: 03-18-2024 Covid-19 Vaccine () Covid-19 Vaccine () [facility] Start: 03-18-2024 Influenza vaccination [facility] Start: 03-01-2024 Hemoglobin A1c measurement HbA1C [facility] Start: 02-28-2024 End: 02-28-2024 Patient encounter procedure 02/28/2024 9:00 AM EDT [facility] [address] [id number] [facility] [address] [place] [address] DM f/up [facility] Comment on above: DM f/up Start: 02-15-2024 End: 02-15-2024 Patient encounter procedure 02/15/2024 2:45 PM EDT Office Visit Endocrinology [address] [place] [address] Renetta Mcgee, CLINICAL LAW PROFESSOR.PLATE SLITTER AND INSPECTOR [address] [place] [address] 3 mo follow up Endocrinology Comment on above: 3 mo follow up Start: 02-13-2024 End: 02-13-2024 Patient encounter procedure 02/13/2024 9:20 AM EDT Office Visit [facility] [address] [place] [address] Octavio Reza MD [address] [place] [address] 4 month follow up [facility] Comment on above: 4 month follow up Start: 02-07-2024 End: 02-07-2024 Patient encounter procedure 02/07/2024 9:20 AM EDT Office Visit Internal [facility] [place] [address] [place] [address] Octavio Reza MD [address] [place] [address] 4 month follow up [facility] Comment on above: 4 month follow up Start: 01-26-2024 End: 04-26-2024 25-hydroxyvitamin D3 [Mass/volume] in Serum or Plasma VITAMIN D 25 HYDROXY Lab Routine Vitamin D deficiency Expected: 01/26/2024, Expires: 04/26/2024 [facility] Comment on above: Expected: 01/26/2024, Expires: Start: 01-26-2024 End: 04-26-2024 CBC W Auto Differential panel - Blood COMPLETE BLOOD COUNT AND DIFFERENTIAL Lab Routine 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) Expected: 01/26/2024, Expires: 04/26/2024 [facility] Comment on above: Expected: 01/26/2024, Expires: Start: 01-26-2024 End: 04-26-2024 Comprehensive metabolic 2000 panel - Serum or Plasma COMPREHENSIVE METABOLIC PANEL Lab Routine 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) Expected: 01/26/2024, Expires: 04/26/2024 [facility] Comment on above: Expected: 01/26/2024, Expires: 4 Start: 01-26-2024 End: 04-26-2024 Lipid 1996 panel - Serum or Plasma LIPID PANEL BASIC Lab Routine 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) Expected: 01/26/2024, Expires: 04/26/2024 [facility] Work Phone: Comment on above: Expected: 01/26/2024, Expires: 4 Start: 01-18-2024 ANNUAL PCP TEAM CHRONIC DISEASE VISIT ANNUAL PCP TEAM CHRONIC DISEASE VISIT [facility] Start: 01-18-2024 BP CONTROLLED (<130/80) BP CONTROLLED (<130/80) [facility] Start: 01-18-2024 COVID-19 VACCINE (#1) COVID-19 VACCINE (#1) [facility] Comment on above: Postponed from 01/27/1946 (Declined at t his time) Start: 01-18-2024 End: 01-18-2024 Nursing evaluation of patient and report 01/18/2024 10:00 AM EDT Nurse Visit Endocrinology [address] [place], [place] [id number] Tawanda Wolff, RN [address] [phone] Diabetes mellitus type 1, controlled, without complications (HCC) [E10.9] Endocrinology Comment on above: Diabetes mellitus type 1, controlled, wi thout complications (HCC) [E10.9] Start: 01-12-2024 End: 01-12-2024 Patient encounter procedure 01/12/2024 9:[address] [facility] [address] [place], [place] [id number] [facility] [address] [place], [place] [phone] Diabetes mellitus type 1, controlled, without complications (HCC) [E10.9] [facility] Comment on above: Diabetes mellitus type 1, controlled, wi thout complications (HCC) [E10.9] Start: 01-11-2024 End: 01-11-2024 Nursing evaluation of patient and report 01/11/2024 2:00 PM EDT Nurse Visit Endocrinology [address] [place], [place] [id number] Tawanda Wolff RN [address] [id number] Diabetes mellitus type 1, controlled, without complications (HCC) [E10.9] Endocrinology Comment on above: Diabetes mellitus type 1, controlled, wi thout complications (HCC) [E10.9] Start: 12-07-2023 End: 03-07-2024 Glutamate decarboxylase 65 Ab [Units/volume] in Serum [facility] Comment on above: Expected: 12/07/2023, Expires: Start: 12-07-2023 End: 03-07-2024 Hemoglobin A1c in Blood [facility] Comment on above: Expected: 12/07/2023, Expires: Start: 12-07-2023 End: 03-07-2024 Pancreatic islet cell Ab [Titer] in Serum [facility] Comment on above: Expected: 12/07/2023, Expires: Start: 12-07-2023 End: 12-07-2023 Patient encounter procedure 12/07/2023 10:15 AM EDT Office Visit Endocrinology [address] [place] [address] Renetta Mcgee, CLINICAL LAW PROFESSOR.[facility] [address] [place] [address] 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.8] Endocrinology Comment on above: Type I diabetes mellitus with manifestat ions (HCC) [E10.8] Start: 11-28-2023 [facility] Start: 11-15-2023 Hemoglobin A1c measurement HbA1C [facility] Start: 11-15-2023 Hemoglobin A1c/Hemoglobin.total in Blood HbA1C [facility] Start: 11-07-2023 [facility] Start: 11-06-2023 [facility] Start: 10-28-2023 [facility] Start: 10-06-2023 ANNUAL PCP TEAM CHRONIC DISEASE VISIT ANNUAL PCP TEAM CHRONIC DISEASE VISIT [facility] Start: 10-01-2023 [facility] Start: 09-21-2023 End: 12-21-2023 25-hydroxyvitamin D3 [Mass/volume] in Serum or Plasma VITAMIN D 25 HYDROXY Lab Routine Vitamin D deficiency Expected: 09/21/2023 (Approximate), Expires: 12/21/2023 [facility] Work Phone: Comment on above: Expected: 09/21/2023 (Approximate), Expi res: 12/21/2023 Start: 09-21-2023 ANNUAL PCP TEAM CHRONIC DISEASE VISIT ANNUAL PCP TEAM CHRONIC DISEASE VISIT [facility] Start: 09-21-2023 End: 12-21-2023 CBC panel - Blood by Automated count CBC Lab Routine Essential hypertension Expected: 09/21/2023 (Approximate), Expires: 12/21/2023 [facility] Work Phone: Comment on above: Expected: 09/21/2023 (Approximate), Expi res: 12/21/2023 Start: 09-21-2023 End: 12-21-2023 Comprehensive metabolic 2000 panel - Serum or Plasma COMP METABOLIC PANEL Lab Routine 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) Expected: 09/21/2023 (Approximate), Expires: 12/21/2023 [facility] Work Phone: Comment on above: Expected: 09/21/2023 (Approximate), Expi res: 12/21/2023 Start: 09-21-2023 End: 12-21-2023 Hemoglobin A1c in Blood HGB A1C Lab Routine 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) Expected: 09/21/2023 (Approximate), Expires: 12/21/2023 [facility] Work Phone: Comment on above: Expected: 09/21/2023 (Approximate), Expi res: 12/21/2023 Start: 09-21-2023 [facility] Start: 09-21-2023 [facility] Start: 09-16-2023 [facility] Start: 09-16-2023 Emergency department visit moderate severity EMERGENCY DEPT VISIT LOW MDM [facility] Start: 09-14-2023 Hepatitis B surface antibody level LDL CHOLESTEROL [facility] Start: 09-07-2023 ANNUAL PCP TEAM CHRONIC DISEASE VISIT ANNUAL PCP TEAM CHRONIC DISEASE VISIT [facility] Start: 09-01-2023 End: 12-01-2023 25-hydroxyvitamin D3 [Mass/volume] in Serum or Plasma [facility] Work Phone: Comment on above: Expected: 09/01/2023, Expires: Start: 09-01-2023 End: 12-01-2023 ALBUMIN/CREAT RATIO RND UR ALBUMIN/CREAT RATIO RND UR Lab Routine 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) Expected: 09/01/2023, Expires: 12/01/2023 [facility] Work Phone: Comment on above: Expected: 09/01/2023, Expires: Start: 09-01-2023 End: 12-01-2023 DORA BY IFA SCREEN [facility] Work Phone: Comment on above: Expected: 09/01/2023, Expires: Start: 09-01-2023 End: 12-01-2023 C reactive protein [Mass/volume] in Serum or Plasma [facility] Work Phone: Comment on above: Expected: 09/01/2023, Expires: Start: 09-01-2023 End: 12-01-2023 Comprehensive metabolic 2000 panel - Serum or Plasma [facility] Work Phone: Comment on above: Expected: 09/01/2023, Expires: Start: 09-01-2023 End: 12-01-2023 Erythrocyte sedimentation rate [facility] Work Phone: Comment on above: Expected: 09/01/2023, Expires: Start: 09-01-2023 End: 12-01-2023 Hemoglobin A1c in Blood [facility] Work Phone: Comment on above: Expected: 09/01/2023, Expires: Start: 09-01-2023 End: 12-01-2023 Lipid 1996 panel - Serum or Plasma LIPID PANEL BASIC Lab Routine 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) Expected: 09/01/2023, Expires: 12/01/2023 [facility] Work Phone: Comment on above: Expected: 09/01/2023, Expires: Start: 09-01-2023 End: 12-01-2023 Rheumatoid factor [Units/volume] in Serum or Plasma [facility] Work Phone: Comment on above: Expected: 09/01/2023, Expires: 4 Start: 08-17-2023 ANNUAL PCP TEAM CHRONIC DISEASE VISIT ANNUAL PCP TEAM CHRONIC DISEASE VISIT [facility] Start: 08-17-2023 BP CONTROLLED (<130/80) BP CONTROLLED (<130/80) [facility] Start: 07-18-2023 Advance Directive Discussion Advance Directive Discussion [facility] Start: 05-28-2023 [facility] Start: 05-18-2023 ANNUAL PCP TEAM CHRONIC DISEASE VISIT ANNUAL PCP TEAM CHRONIC DISEASE VISIT [facility] Start: 03-18-2023 Covid-19 Vaccine () Covid-19 Vaccine () [facility] Start: 03-18-2023 Influenza vaccination [facility] Start: 03-14-2023 Hemoglobin A1c/Hemoglobin.total in Blood HBA1C [facility] Start: 01-11-2023 ANNUAL PCP TEAM CHRONIC DISEASE VISIT ANNUAL PCP TEAM CHRONIC DISEASE VISIT [facility] Start: 12-24-2022 Hepatitis B screening URINE ALBUMIN:CREATININE RATIO [facility] Start: 12-24-2022 Hepatitis B surface antibody level LDL CHOLESTEROL [facility] Start: 12-23-2022 ANNUAL PCP TEAM CHRONIC DISEASE VISIT ANNUAL PCP TEAM CHRONIC DISEASE VISIT [facility] Start: 11-04-2022 [facility] Start: 10-23-2022 ANNUAL PCP TEAM CHRONIC DISEASE VISIT ANNUAL PCP TEAM CHRONIC DISEASE VISIT [facility] Start: 10-11-2022 [facility] Start: 10-01-2022 Troponin I measurement [facility] Start: 10-01-2022 [facility] Start: 09-15-2022 End: 11-15-2022 25-hydroxyvitamin D3 [Mass/volume] in Serum or Plasma VITAMIN D 25 HYDROXY Lab Routine Vitamin D deficiency Expected: 09/15/2022 (Approximate), Expires: 11/15/2022 [facility] Work Phone: Comment on above: Expected: 09/15/2022 (Approximate), Expi res: 11/15/2022 Start: 09-15-2022 3 comp foot exam completed DIABETIC FOOT EXAM [facility] Comment on above: Postponed from 10/27/2021 (Declined at t his time) Start: 09-15-2022 End: 11-15-2022 Lipid 1996 panel - Serum or Plasma LIPID PANEL BASIC Lab Routine Mixed hyperlipidemia Expected: 09/15/2022 (Approximate), Expires: 11/15/2022 [facility] Work Phone: Comment on above: Expected: 09/15/2022 (Approximate), Expi res: 11/15/2022 Start: 09-11-2022 ANNUAL PCP TEAM CHRONIC DISEASE VISIT ANNUAL PCP TEAM CHRONIC DISEASE VISIT [facility] Start: 08-02-2022 Patient discharge [facility] Start: 08-02-2022 Speech therapy assessment [facility] Start: 08-01-2022 [facility] Start: 08-01-2022 Admission procedure [facility] Start: 08-01-2022 Incentive spirometry [facility] Start: 08-01-2022 Blood chemistry [facility] Work Phone: Start: 08-01-2022 CBC W Auto Differential panel - Blood [facility] Work Phone: Start: 08-01-2022 Inhalation therapy procedure [facility] Start: 07-31-2022 Following clinical pathway protocol [facility] Start: 07-31-2022 Assessment of risk of venous thromboembolism [facility] Start: 07-31-2022 Care regimes management [facility] Start: 07-31-2022 Insertion of catheter into peripheral vein [facility] Start: 07-31-2022 Oxygen therapy [facility] Start: 07-31-2022 Providing care according to standard [facility] Start: 07-31-2022 Provision of activity privileges [facility] Start: 07-31-2022 Referral to occupational therapist [facility] Start: 07-31-2022 Referral to service [facility] Start: 07-31-2022 [facility] Start: 07-31-2022 Verification routine [facility] Work Phone: Start: 07-31-2022 Admission procedure [facility] Start: 07-31-2022 [facility] Start: 07-31-2022 Patient referral to dietitian [facility] Start: 07-25-2022 [facility] Work Phone: Start: 07-24-2022 Patient discharge [facility] Start: 07-23-2022 Referral to service [facility] Start: 07-22-2022 [facility] Start: 07-20-2022 Referral to occupational therapist [facility] Start: 07-20-2022 Referral to service [facility] Start: 07-18-2022 ADVANCE DIRECTIVE DISCUSSION ADVANCE DIRECTIVE DISCUSSION [facility] Start: 07-18-2022 Methicillin resistant Staphylococcus aureus screening test [facility] Start: 07-18-2022 Following clinical pathway protocol [facility] Start: 07-18-2022 Assessment of risk of venous thromboembolism [facility] Start: 07-18-2022 Care regimes management [facility] Start: 07-18-2022 Elevation of head of bed [facility] Start: 07-18-2022 Incentive spirometry [facility] Start: 07-18-2022 Inhalation therapy procedure [facility] Start: 07-18-2022 Insertion of catheter into peripheral vein [facility] Start: 07-18-2022 Notification of physician [facility] Start: 07-18-2022 Oxygen therapy [facility] Start: 07-18-2022 Patient education [facility] Start: 07-18-2022 Physiotherapy of chest [facility] Start: 07-18-2022 Providing care according to standard [facility] Start: 07-18-2022 Provision of activity privileges [facility] Start: 07-18-2022 Referral to [facility] Start: 07-18-2022 End: 07-18-2022 [facility] Start: 07-18-2022 Admission procedure [facility] Start: 07-18-2022 Dual pressure spontaneous ventilation support [facility] Start: 07-18-2022 Patient referral to dietitian [facility] Start: 07-14-2022 Patient discharge [facility] Start: 07-10-2022 Respiratory secretion precautions [facility] Start: 07-10-2022 Following clinical pathway protocol [facility] Start: 07-10-2022 Ambulation without limitation [facility] Start: 07-10-2022 Assessment of risk of venous thromboembolism [facility] Start: 07-10-2022 Care regimes management [facility] Start: 07-10-2022 Incentive spirometry [facility] Start: 07-10-2022 Insertion of catheter into peripheral vein [facility] Start: 07-10-2022 Oxygen therapy [facility] Start: 07-10-2022 Providing care according to standard [facility] Start: 07-10-2022 Viral nucleic acid assay [facility] Work Phone: Start: 07-10-2022 End: 07-10-2022 [facility] Start: 07-10-2022 Verification routine [facility] Work Phone: Start: 07-10-2022 Admission procedure [facility] Start: 07-10-2022 End: 07-11-2022 [facility] Start: 07-10-2022 Inhalation therapy procedure [facility] Start: 06-25-2022 Hemoglobin A1c/Hemoglobin.total in Blood HBA1C [facility] Start: 05-28-2022 Hepatitis C antibody, confirmatory test DILATED RETINAL EXAM [facility] Start: 05-25-2022 Hepatitis B screening URINE ALBUMIN:CREATININE RATIO [facility] Start: 05-11-2022 BP CONTROLLED (<130/80) BP CONTROLLED (<130/80) [facility] Start: 05-04-2022 Hepatitis B surface antibody level LDL CHOLESTEROL [facility] Start: 03-18-2022 Influenza vaccination INFLUENZA (#1) [facility] Start: 03-09-2022 FECAL OCCULT BLOOD FECAL OCCULT BLOOD [facility] Start: 03-09-2022 Screening for malignant neoplasm of colon Fecal Occult Blood [facility] Start: 03-02-2022 Hemoglobin A1c/Hemoglobin.total in Blood HBA1C [facility] Start: 01-12-2022 COVID-19 VACCINE (#1) COVID-19 VACCINE (#1) [facility] Comment on above: Postponed from 1950 (Declined at t his time) Start: 01-12-2022 COVID-19 VACCINE (1) COVID-19 VACCINE (1) [facility] Comment on above: Postponed from 1950 (Declined at t his time) Start: 01-12-2022 Urine microalbumin profile DTAP,TDAP,TD (1 - Tdap) [facility] Comment on above: Postponed from 1964 (Declined at t his time) Start: 12-24-2021 End: 02-23-2022 Amylase [Enzymatic activity/volume] in Serum or Plasma [facility] Work Phone: Comment on above: Expected: 12/24/2021, Expires: 2 Start: 12-24-2021 End: 02-23-2022 Gamma glutamyl transferase [Enzymatic activity/volume] in Serum or Plasma [facility] Work Phone: Comment on above: Expected: 12/24/2021, Expires: 2 Start: 12-24-2021 End: 02-23-2022 Lipase [Enzymatic activity/volume] in Serum or Plasma [facility] Work Phone: Comment on above: Expected: 12/24/2021, Expires: 2 Start: 12-09-2021 End: 09-11-2022 ALBUMIN/CREAT RATIO RND UR ALBUMIN/CREAT RATIO RND UR Lab Routine 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) Expected: 12/09/2021 (Approximate), Expires: 09/11/2022 [facility] Work Phone: Comment on above: Expected: 12/09/2021 (Approximate), Expi res: 09/11/2022 Start: 12-09-2021 End: 09-11-2022 CBC panel - Blood by Automated count CBC Lab Routine 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) Essential hypertension Expected: 12/09/2021 (Approximate), Expires: 09/11/2022 [facility] Work Phone: Comment on above: Expected: 12/09/2021 (Approximate), Expi res: 09/11/2022 Start: 12-09-2021 End: 09-11-2022 Comprehensive metabolic 2000 panel - Serum or Plasma COMP METABOLIC PANEL Lab Routine 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) Essential hypertension Expected: 12/09/2021 (Approximate), Expires: 09/11/2022 [facility] Work Phone: Comment on above: Expected: 12/09/2021 (Approximate), Expi res: 09/11/2022 Start: 12-09-2021 End: 09-11-2022 Hemoglobin A1c/Hemoglobin.total in Blood HGB A1C Lab Routine 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) Expected: 12/09/2021 (Approximate), Expires: 09/11/2022 [facility] Work Phone: Comment on above: Expected: 12/09/2021 (Approximate), Expi res: 09/11/2022 Start: 12-09-2021 End: 09-11-2022 LIPID PANEL BASIC LIPID PANEL BASIC Lab Routine 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) Mixed hyperlipidemia Expected: 12/09/2021 (Approximate), Expires: 09/11/2022 [facility] Work Phone: Comment on above: Expected: 12/09/2021 (Approximate), Expi res: 09/11/2022 Start: 12-09-2021 End: 09-11-2022 VITAMIN D 25 HYDROXY VITAMIN D 25 HYDROXY Lab Routine Vitamin D deficiency Expected: 12/09/2021 (Approximate), Expires: 09/11/2022 [facility] Work Phone: Comment on above: Expected: 12/09/2021 (Approximate), Expi res: 09/11/2022 Start: 10-27-2021 3 comp foot exam completed DIABETIC FOOT EXAM [facility] Start: 10-27-2021 Diabetic foot examination Diabetic Foot Exam [facility] Start: 07-18-2021 ADVANCE DIRECTIVE DISCUSSION ADVANCE DIRECTIVE DISCUSSION [facility] Start: 2020 RSV Vaccine (1 - 1-dose 75+ series) RSV Vaccine (1 - 1-dose 75+ series) [facility] Start: 11-28-2017 End: 11-28-2017 Appointment [facility] Work Phone: Start: 11-22-2016 End: 11-22-2016 Appointment Appointment [facility] Work Phone: Start: 11-22-2016 End: 11-22-2016 Follow Up Appt 1 year Follow Up Appt 1 year [facility] Work Phone: Start: 11-22-2016 End: 11-22-2016 PFM PFM [facility] Work Phone: Start: 07-21-2015 End: 07-21-2015 Follow Up Appt 1 year Follow Up Appt 1 year [facility] Work Phone: Start: 07-21-2015 End: 07-21-2015 PFM PFM [facility] Work Phone: Start: 01-06-2015 End: 01-06-2015 Follow Up Appt 6 months Follow Up Appt 6 months [facility] Work Phone: Start: 01-06-2015 End: 01-06-2015 PFM PFM [facility] Work Phone: Start: 10-12-2013 End: 10-12-2013 Follow Up Appt 6 months Follow Up Appt 6 months [facility] Work Phone: Start: 10-12-2013 End: 10-12-2013 Follow Up Appt Other Follow Up Appt Other [facility] Work Phone: Start: 10-12-2013 End: 10-12-2013 PFM PFM [facility] Work Phone: Start: 03-23-2013 End: 03-23-2013 Electrocardiogram, complete EKG (In office) [facility] Work Phone: Start: 03-23-2013 End: 03-23-2013 Follow Up Appt 6 months Follow Up Appt 6 months [facility] Work Phone: Start: 03-23-2013 End: 03-23-2013 MMM MMM [facility] Work Phone: Start: 11-15-2012 End: 03-23-2013 Follow Up Appt 1 year Follow Up Appt 1 year [facility] Work Phone: Start: 11-15-2012 End: 03-23-2013 Follow Up Appt Other Follow Up Appt Other [facility] Work Phone: Start: 11-15-2012 End: 03-23-2013 PFM PFM [facility] Work Phone: Start: 03-15-2012 End: 03-15-2012 Electrocardiogram, complete EKG (In office) [facility] Work Phone: Start: 03-15-2012 End: 03-15-2012 Follow Up Appt 6 months Follow Up Appt 6 months [facility] Phone: Start: 01-20-2012 End: 01-20-2012 Remote 30 day ecg rev/report 30 Day Holter Monitor [facility] Work Phone: Start: 2005 Hepatitis B Vaccine (1 of 3 - Risk 3-dose series) Hepatitis B Vaccine (1 of 3 - Risk 3-dose series) [facility] Start: 2005 RSV Vaccine (1 - 1-dose 60+ series) RSV Vaccine (1 - 1-dose 60+ series) [facility] Start: 1990 COLOGUARD (FIT-DNA) COLOGUARD (FIT-DNA) [facility] Start: [address] COLONOGRAPHY [facility] Start: 1990 Screening for malignant neoplasm of colon [facility] Start: 1990 SIGMOIDOSCOPY SIGMOIDOSCOPY [facility] Start: 1964 Urine microalbumin profile [facility] Start: [birth year]-27-1946 COVID-19 VACCINE (#1) COVID-19 VACCINE (#1) [facility] Anion gap measurement [facility] Work Phone: Bacteria identified in Sputum by Respiratory culture [facility] Work Phone: Bacteria identified in Sputum by Respiratory culture [facility] Bacteria identified in Urine by Culture Urine Culture [facility] Work Phone: Bacteria identified in Urine by Culture URINE CULTURE Microbiology Routine Acute cystitis without hematuria 06/28/2024 11:42 AM EST [facility] BUN/Creatinine ratio [facility] Work Phone: Calcium [Mass/volume ] in Serum or Plasma [facility] Work Phone: Carbon dioxide, tota l [Moles/volume] in Serum or Plasma [facility] Work Phone: End: 05-18-2023 CBC panel - Blood by Automated count CBC Lab Routine Encounter for long-term current use of medication Every 4 months for 4 Occurrences starting 05/18/2022 until 05/18/2023 [facility] Work Phone: Comment on above: Every 4 months for 4 Occurrences startin g 05/18/2022 until 05/18/2023 Chloride [Moles/volu me] in Serum or Plasma [facility] Work Phone: End: 05-18-2023 Comprehensive metabolic 2000 panel - Serum or Plasma COMP METABOLIC PANEL Lab Routine 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) Encounter for long-term current use of medication Every 4 months for 4 Occurrences starting 05/18/2022 until 05/18/2023 [facility] [employer] Work Phone: Comment on above: Every 4 months for 4 Occurrences startin g 05/18/2022 until 05/18/2023 COVID & INFLUENZA A/ B & RSV PCR, ROUTINE COVID & INFLUENZA A/B & RSV PCR, ROUTINE Microbiology Routine Acute cough URI, acute Ordered: 04/18/2024 [facility] Work Phone: Comment on above: Ordered: 04/18/2024 Creatinine [Moles/volume] in Serum or Plasma [facility] Work Phone: End: 04-04-2025 DBT Breast - bilateral screening KELLY SCREENING [facility] Radiology Routine Screening mammogram for breast cancer 1 Occurrences starting 03/05/2024 until 04/04/2025 [facility] Work Phone: Comment on above: 1 Occurrences starting 03/05/2024 until 04/04/2025 Glucose [Mass/volume ] in Serum or Plasma [facility] Work Phone: Hematocrit [Volume Fraction] of Blood [facility] Work Phone: Hemoglobin [Mass/vol ume] in Blood [facility] Work Phone: End: 05-18-2023 Hemoglobin A1c in Blood HGB A1C Lab Routine 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) Every 4 months for 4 Occurrences starting 05/18/2022 until 05/18/2023 [facility] [employer] Work Phone: Comment on above: Every 4 months for 4 Occurrences startin g 05/18/2022 until 05/18/2023 INFLUENZA VACCINE, P RSV FREE, AGE 65+ YR, HIGH DOSE, QUADRIVALENT (FLUZONE HIGH-DOSE) INFLUENZA VACCINE, PRSV FREE, AGE 65+ YR, HIGH DOSE, QUADRIVALENT (FLUZONE HIGH-DOSE) Immunization/Injection Routine Encounter for immunization Ordered: 05/23/2023 [facility] Work Phone: Comment on above: Ordered: 05/23/2023 Leukocytes [#/volume ] in Blood [facility] Work Phone: End: 02-19-2023 KELLY SCREENING [facility] KELLY SCREENING [facility] Radiology Routine Breast cancer screening by mammogram Dense breasts 1 Occurrences starting 01/21/2022 until 02/19/2023 [facility] Work Phone: Comment on above: 1 Occurrences starting 01/21/2022 until 02/19/2023 End: 03-22-2024 KELLY SCREENING [facility] KELLY SCREENING [facility] Radiology Routine Screening mammogram for breast cancer 1 Occurrences starting 02/21/2023 until 03/22/2024 [facility] Work Phone: Comment on above: 1 Occurrences starting 02/21/2023 until 03/22/2024 Mean corpuscular hemoglobin concentration determination [facility] Work Phone: Mean corpuscular hemoglobin determination [facility] Work Phone: Measurement of renal function [facility] Work Phone: Neutrophil count [facility] Work Phone: Neutrophil percent differential count [facility] Work Phone: End: 10-21-2024 NITRIC OXIDE, EXHALED NITRIC OXIDE, EXHALED PFT Routine Mild persistent asthma without complication 1 Occurrences starting 09/22/2023 until 10/21/2024 [facility] Work Phone: Comment on above: 1 Occurrences starting 09/22/2023 until 10/21/2024 End: 04-29-2025 NITRIC OXIDE, EXHALED NITRIC OXIDE, EXHALED PFT Routine Moderate persistent asthma without complication 1 Occurrences starting 03/30/2024 until 04/29/2025 [facility] Work Phone: Comment on above: 1 Occurrences starting 03/30/2024 until 04/29/2025 OXIMETRY - NOCTURNAL OXIMETRY - NOCTURNAL Procedures Routine Severe persistent asthma without complication Ordered: 06/23/2023 [facility] Work Phone: Comment on above: Ordered: 06/23/2023 Patient Education [facility] Work Phone: Patient referral [facility] Work Phone: PFIZER-BIONTECH COVI D-19 VACCINE, AGE 12+ YR (PAIGE TOP) PFIZER-BIONTECH COVID-19 VACCINE, AGE 12+ YR (PAIGE TOP) Immunization/Injection Routine Encounter for immunization Ordered: 02/15/2022 [facility] Work Phone: Comment on above: Ordered: 02/15/2022 Platelets [#/volume] in Blood [facility] Work Phone: Potassium [Moles/vol ume] in Serum or Plasma [facility] Work Phone: Red blood cell count [facility] Work Phone: Red cell distributio n width determination [facility] Work Phone: Respiratory Panel (PCR) Respiratory Panel (PCR) [facility] Work Phone: Respiratory pathogen s DNA and RNA 12b panel - Unspecified specimen by RAYMOND with probe detection [facility] Work Phone: Sodium [Moles/volume ] in Serum or Plasma [facility] Work Phone: SURGICAL PATHOLOGY [facility] Work Phone: Comment on above: Release Upon Ordering for 1 Occurrences starting 10/29/2021, 1 completed Tdap vaccine 7 yrs/> im TDAP VAC CINE AGE 7+ IM Immunization/Injection Routine Encounter for immunization Ordered: 02/15/2022 [facility] Work Phone: Comment on above: Ordered: 02/15/2022 Urea nitrogen [Mass/volume] in Serum or Plasma [facility] Work Phone: Urinalysis complete panel - Urine URINALYSIS, WITH MICROSCOPIC Lab Routine Acute cystitis without hematuria 06/28/2024 11:42 AM EST [facility] Urine culture Urine Culture [facility] Urine culture [facility] Urine culture [facility] End: 01-16-2023 XR HUMERUS 2V AP/LAT RIGHT XR HUMERUS 2V AP/LAT RIGHT Radiology STAT Pain of right upper extremity 1 Occurrences starting 12/17/2021 until 01/16/2023 [facility] Work Phone: Comment on above: 1 Occurrences starting 12/17/2021 until 01/16/2023 [facility] Immunizations Immunization Date Immunization Notes Care Provider Fa [facility] 08-09-2022 tuberculin skin test ; purified protein derivative solution, intradermal Octavio Reza MD Work Phone: [facility] 05-18-2022 Influenza, high dose seasonal Dr. Octavio Reza MD Work Phone: [facility] 05-18-2022 influenza, high dose seasonal, preservative-free Dr. Octavio Reza Work Phone: [facility] 05-18-2022 influenza, high-dose , quadrivalent vaccine (FLUZONE HIGH DOSE QUADRIVALENT) Octavio Reza MD Work Phone: [facility] 05-18-2022 influenza virus vaccine, unspecified formulation Anant Lees MD Work Phone: [facility] 07-02-2021 influenza, high-dose , quadrivalent vaccine (FLUZONE HIGH DOSE QUADRIVALENT) Octavio Reza MD Work Phone: [facility] 04-15-2020 influenza, high-dose , quadrivalent vaccine (FLUZONE HIGH DOSE QUADRIVALENT) Octavio Reza MD Work Phone: [facility] 04-16-2019 influenza, high dose seasonal, preservative-free Octavio Reza MD Work Phone: [facility] 04-12-2018 influenza, high dose seasonal, preservative-free Octavio Reza MD Work Phone: [facility] 04-11-2017 influenza, high dose seasonal, preservative-free Octavio Reza MD Work Phone: [facility] 05-10-2016 influenza, high dose seasonal, preservative-free Octavio Reza MD Work Phone: [facility] Work Phone: 04-16-2016 pneumococcal polysaccharide vaccine, [address] Octavio Reza Work Phone: [facility] 04-16-[address] Juliana Reza Work Phone: [facility] Work Phone: 04-16-2016 pneumococcal vaccine , unspecified formulation Dr. Octavio Reza Work Phone: [facility] 03-16-2016 pneumococcal conjuga te vaccine, 13 valent Octavio Reza MD Work Phone: [facility] Work Phone: 05-27-2015 influenza, high dose seasonal, preservative-free Octavio Reza MD Work Phone: [facility] 04-17-[address] Octavio Reza Work Phone: [facility] 06-12-2014 pneumococcal polysaccharide vaccine, 23 valent Octavio Reza MD Work Phone: [facility] 05-23-[address] Octavio Reza Work Phone: [facility] 05-23-2013 influenza virus vaccine, unspecified formulation Octavio Reza MD Work Phone: [facility] 05-23-2013 influenza, seasonal, injectable Octavio Reza MD Work Phone: [facility] 04-13-2012 influenza virus vaccine, unspecified formulation Octavio Reza MD Work Phone: [facility] 06-01-2007 influenza virus vaccine, unspecified formulation Octavio Reza MD Work Phone: [facility] Work Phone: 05-18-2006 influenza virus vaccine, unspecified formulation Octavio Reza MD Work Phone: [facility] Work Phone: 06-15-2005 influenza virus vaccine, unspecified formulation Octavio Reza MD Work Phone: [facility] Work Phone: 07-26-2000 pneumococcal polysaccharide vaccine, 23 valent Octavio Reza MD Work Phone: [facility] Work Phone: NEGATED: Highlighted row has not occurred!06-25-2023 influenza (HD-IIV4) vaccine, age 65+ yr, high dose, quadrivalent, PF (FLUZONE HIGH-DOSE) Octavio Reza MD Work Phone: [facility] Work Phone: NEGATED: Highlighted row has not occurred!05-23-2023 influenza (HD-IIV4) vaccine, age 65+ yr, high dose, quadrivalent, PF (FLUZONE HIGH-DOSE) Lydia Grande APRN.[employer] Work Phone: [facility] Comment on above: Deferred: Postponed - Verified Patricia Mora LPN NEGATED: Highlighted row has not occurred!02-15-2022 COVID-19 vaccine, age 12+ yr (PFIZER-BIONTInflux - PAIGE TOP) Lydia Grande APRN.[employer] Work Phone: [facility] Work Phone: NEGATED: Highlighted row has not occurred!02-15-2022 influenza virus vaccine, unspecified formulation Lydia Grande APRN.[employer] Work Phone: [facility] Work Phone: NEGATED: Highlighted row has not occurred!02-15-2022 tetanus toxoid, reduced diphtheria toxoid, and acellular pertussis vaccine, adsorbed 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 2021 Medicare (Managed Care) AETNA [facility] [id number] 2021 Private Health Insurance [facility] [id number] 2021 Medicare [id number] 2010 Unknown [id number] 2002 Medicare [id number] Unknown [id number] Unknown [id number] [id number]. 462 Unknown [id number] 2.16.840.1.989966.3.579.2. 462 Unknown [id number] 2.16.840.1.032629.3.579.2. 462 Unknown [id number] 2.16.840.1.527935.3.579.2. 462 Unknown [id number] 2.16.840.1.842674.3.579.2. 462 Unknown [id number] 2.16.840.1.611530.3.579.2. 462 Unknown [id number] 2.16.840.1.012399.3.579.2. 462 Unknown [id number] 2.16.840.1.030317.3.579.2. 462 Unknown [id number] 2.16.840.1.681837.3.579.2. 462 Unknown [id number] 2.16.840.1.097989.3.579.2. 462 Unknown [id number] 2.16.840.1.417930.3.579.2. 462 Unknown [id number] 2.16.840.1.075600.3.579.2. 462 Unknown [id number] 2.16.840.1.900432.3.579.2. 462 Unknown [id number] 2.16.840.1.498661.3.579.2. 462 Unknown [id number] 2.16.840.1.397900.3.579.2. 462 Unknown [id number] 2.16.840.1.948366.3.579.2. 462 Unknown [id number] 2.16.840.1.175635.3.579.2. 462 Unknown [id number] 2.16.840.1.774513.3.579.2. 462 Unknown [id number] 2.16.840.1.085664.3.579.2. 462 Unknown [id number] 2.16.840.1.163381.3.579.2. 462 Unknown [id number] 2.16.840.1.938456.3.579.2. 462 Unknown [id number] 2.16840.1.991337.3.579.2. 462 Unknown [id number] 2.16.840.1.562464.3.579.2. 462 Unknown [id number] 2.16840.1.033906.3.579.2. 462 Unknown [id number] 2.840.1.023202.3.579.2. 462 Social History Date Type Detail Facility Start: 09-07-2022 End: 03-07-2024 Tobacco smoking status NHIS Ex-smoker [facility] Start: 10-21-1978 End: 10-21-1998 History of tobacco use Current smoker [facility] Start: 10-21-1978 End: 10-21-1998 History of tobacco use Cigarette Smoker [facility] Start: 09-30-2021 End: 12-17-2021 Alcohol intake Current drinker of alcohol (finding) [facility] Start: 02-24-2018 History SDOH Alcohol Comment Rarely [facility] Start: 1945 Sex Assigned At Not on file [facility] Start: 09-20-2021 End: 05-18-2022 Exposure to SARS-CoV-2 (event) Not sure [facility] Start: 12-13-2021 End: 12-23-2021 Exposure to SARS-CoV-2 (event) Unable to assess [facility] Work Phone: Start: 02-11-2022 End: 11-28-2023 Tobacco smoking status NMIS Unknown if ever smoked [facility] Start: 04-14-2016 None [facility] Start: 01-19-2019 Spouse/ Signif icant Other [facility] Start: 01-19-2019 Non-smoker [facility] Start: 1945 Sex Assigned At Female [facility] Start: 09-07-2022 End: 01-17-2023 Cigarettes smoked current (pack per day) - Reported 0.5 [facility] Start: 09-07-2022 End: 03-07-2024 Tobacco use and exposure Smokeless tobacco non-user [facility] Work Phone: Start: 01-17-2023 End: 04-04-2024 Tobacco use panel [facility] Adult Depression Screening Assessment 2 [facility] Start: 04-04-2024 End: 10-31-2024 Alcoholic beverage intake Ex-drinker (finding) [facility] Has the [employer], [employer], or water [employer] threatened to shut off services in your home in past 12Mo No [facility] (I/We) worried maryuri er (my/our) food would run out before (I/we) got money to buy more. Never true [facility] Start: 09-20-2024 End: 11-03-2024 Sex Female (finding) [facility] Medical Equipment Procedure Code Equipment Code Equipment Origin al Text Equipment Identifier Dates [id number], [id number], [id number], [id number], [id number] Start: 09-24-2020 End: 10-31-2024 Comment on above: Test blood sugar(s) 8 times daily--Medically Necessary for labile blood sugars (highs and lows). Dx: Other DM Code E10.8, E11.610 Insulin: Yes Use one needle for e ach dose. 1-2 /day. Blood Sugar Diagnostic strip Start: 02-06-2024 Blood Sugar Diagnostic strip Start: 02-06-2024 Blood Sugar Diagnostic strip Start: 02-06-2024 Blood Sugar Diagnostic strip Start: 02-06-2024 Blood Sugar Diagnostic strip Start: 02-06-2024 Blood Sugar Diagnostic strip Start: 02-06-2024 Blood Sugar Diagnostic strip Start: 02-06-2024 Blood Sugar Diagnostic strip Start: 02-06-2024 Goals Date Patient Goal Desired Activity /State Personal health goal Comment on above: Formatting of this n ote might be different from the original. Pt's Goal Wt loss, and decreased Hgb A1C Personal health goal Comment on above: Formatting of this n ote might be different from the original. Pt's Goal Wt loss, and decreased Hgb A1C Functional Status Date Assessment Result Facility 08-02-2022 Functional status Ambulates;Bath room Privilege [facility] Work Phone: 07-24-2022 Functional status Ambulates [facility] Work Phone: 07-14-2022 Functional status Ambulates;Bath room Privilege [facility] Work Phone: 01-12-2021 Are you deaf, or do you have serious difficulty hearing No 01/12/2021 3:44 PM EDT Octavio Reza MD No [facility] 01-12-2021 Are you blind, or do you have serious difficulty seeing, even when wearing glasses No 01/12/2021 3:44 PM EDT Octavio Reza MD No [facility] 01-12-2021 Do you have serious difficulty walking or climbing stairs No 01/12/2021 3:44 PM EDT Octavio Reza MD No [facility] 01-12-2021 Do you have difficul ty dressing or bathing No 01/12/2021 3:44 PM EDT Octavio Reza MD No [facility] 01-12-2021 Because of a physica l, mental, or emotional condition, do you have difficulty doing errands alone such as visiting a physician's office or shopping No 01/12/2021 3:44 PM EDT Octavio Reza MD No [facility] Mental Status Date Assessment Result Facility 12-19-2024 Cognitive function Level Of Cons ciousness Awake;Alert;Appropriate;Fol lows Commands [facility] Work Phone: 11-29-2024 Cognitive function Level Of Cons ciousness Awake;Alert;Appropriate;Fol lows Commands [facility] Work Phone: 09-21-2024 Cognitive function Level Of Cons ciousness Awake;Appropriate;Follows Commands;Lethargic [facility] Work Phone: 09-20-2024 Cognitive function Level Of Cons ciousness Awake;Alert;Appropriate [facility] Work Phone: 07-02-2024 Cognitive function Voice/Name [facility] Work Phone: 06-08-2024 Cognitive function Level Of Cons ciousness Awake;Alert;Appropriate;Fol lows Commands [facility] Work Phone: 05-27-2024 Cognitive function Voice/Name [facility] Work Phone: 05-25-2024 Cognitive function Level Of Cons ciousness Awake;Alert;Appropriate [facility] Work Phone: 11-28-2023 Cognitive function Level Of Cons ciousness Awake;Alert;Appropriate;Fol lows Commands [facility] Work Phone: 11-07-2023 Cognitive function Level Of Cons ciousness Awake;Alert;Appropriate;Fol lows Commands [facility] Work Phone: 11-06-2023 Cognitive function Voice/Name [facility] Work Phone: 10-28-2023 Cognitive function Level Of Cons ciousness Awake;Alert;Appropriate;Fol lows Commands [facility] Work Phone: 09-21-2023 Cognitive function Level Of Cons ciousness Awake;Alert;Appropriate;Fol lows Commands [facility] Work Phone: 09-16-2023 Cognitive function Level Of Cons ciousness Awake;Alert;Appropriate;Fol lows Commands [facility] Work Phone: 05-28-2023 Cognitive function Voice/Name [facility] Work Phone: 11-04-2022 Cognitive function Voice/Name [facility] Work Phone: 10-11-2022 Cognitive function Awake;Alert;A ppropriate;Fol lows Commands [facility] Work Phone: 10-01-2022 Cognitive function Voice/Name [facility] Work Phone: 08-02-2022 Cognitive function Voice/Name;Touch/Shaki ng [facility] Work Phone: 07-31-2022 Cognitive function Voice/Name [facility] Work Phone: 07-24-2022 Cognitive function Voice/Name [facility] Work Phone: 07-14-2022 Cognitive function Appropriate;Cooperativ e [facility] Work Phone: 07-13-2022 Cognitive function Voice/Name [facility] Work Phone: 07-10-2022 Cognitive function Level Of Cons ciousness Awake;Alert;Appropriate;Fol lows Commands [facility] Work Phone: 02-11-2022 Cognitive function Patient Jose pichardo Person;Place;Time [facility] Work Phone: 01-12-2021 Because of a physica l, mental, or emotional condition, do you have serious difficulty concentrating, remembering, or making decisions No 01/12/2021 3:44 PM EDT Octavio Reza MD No [facility] Clinical Notes 05-11-2021 to 12-21-2024 Telephone Encounter - Norma Devlin RN - 12/21/2024 9:59 AM EDTTelephone Encounter - Norma Devlin RN - 12/21/2024 9:59 AM EDTTelephone Encounter - Trudy Wang MA - 12/19/2024 3:15 PM EDT Note Date & Type Note Facility 12-21-2024 Telephone encounter Note Form atting of this note might be different from the original. Call placed to Ashok (on speaker phone). Elijah reports that he did end up taking Pt to [facility] ED on 12/19/2024. He reports that they checked a urine to make sure she didn't have an infection, and it was clear. They did not run any other blood work; they just reviewed her lab results from 11/2024. Pulled [facility] ED records: -Discharge diagnosis was 'Anxiety' - per ED report: Diabetic female and elevated blood sugar at home. It is only 227 here. This is more to do with her anxiety than anything else. I reviewed she had recent labs about 3 weeks ago. They were unremarkable other than elevated blood sugar. She will use her insulin at home as needed. Her exam is benign today. I do not think she needs any further testing. Elijah and Attila both confirm that they have found that if Pt eats a small snack in between her meals, her blood sugar is better controlled and doesn't have the spikes and drops like it previously did before. Reiterated the importance of only checking sugars BEFORE meals and ONLY if she feels like her blood sugar is abnormally high/low. They voice understanding. Reassurance provided that as long as Pt's glucose is averaging ~150, Renetta Mcgee is comfortable with that, given her age. They voice understanding. Instructed to call if they have any other questions and/or concerns. ED visit note scanned into chart. Norma Devlin RN December 21, 2024 10:07 AM [facility] 12-21-2024 Miscellaneous Notes Formattin g of this note might be different from the original. Call placed to Ashok (on speaker phone). Elijah reports that he did end up taking Pt to [facility] ED on 12/19/2024. He reports that they checked a urine to make sure she didn't have an infection, and it was clear. They did not run any other blood work; they just reviewed her lab results from 11/2024. Pulled [facility] ED records: -Discharge diagnosis was 'Anxiety' - per ED report: Diabetic female and elevated blood sugar at home. It is only 227 here. This is more to do with her anxiety than anything else. I reviewed she had recent labs about 3 weeks ago. They were unremarkable other than elevated blood sugar. She will use her insulin at home as needed. Her exam is benign today. I do not think she needs any further testing. Elijah and Attila both confirm that they have found that if Pt eats a small snack in between her meals, her blood sugar is better controlled and doesn't have the spikes and drops like it previously did before. Reiterated the importance of only checking sugars BEFORE meals and ONLY if she feels like her blood sugar is abnormally high/low. They voice understanding. Reassurance provided that as long as Pt's glucose is averaging ~150, Renetta Mcgee is comfortable with that, given her age. They voice understanding. Instructed to call if they have any other questions and/or concerns. ED visit note scanned into chart. Norma Devlin RN December 21, 2024 10:07 AM Sugars between 176 and 232 do not require a visit to the hospital. Patient was counseled multiple times on when to check BG, how to use their insulin. She is 79, sugars between 100 - 200 with average of 150 are her goal. Would they like to see the DM EDUCATOR again? Call attempt back to Pt's , Elijah. Voicemail full, unable to leave message. Will route to [place] triage nurse [place] in the case that Pt and/or spouse return call. *Pt does have a h/o UTI so that might be something that needs ruled out. Current insulin orders per Renetta Mcgee CNP only advise insulin be taken PRE-MEAL. They have been educated previously on not checking blood sugars too much or between meals.* Norma Devlin RN December 19, 2024 3:58 PM Received a call from patients with patient in the background. Her glucose was 231 when she woke up at 4:45 am, she took 6 units and ate breakfast. 8:05 glucose was 194 9:45 222 took 6 units and ate lunch 12:40 -217 2:00 - 173 2:35 -156 and she felt like the blood sugar was coming down too fast so she ate a couple bites of yogurt, some Ritz crackers and a sip of apple juice 3:00 -198 3:13 -232 Patient reports excessive water drinking, 4-5 bottles asking how long should they wait before she takes more insulin or goes to the ED? Please contact patient/ back at [phone]. documented in this encounter [facility] 12-20-2024 Telephone encounter Note Form atting of this note might be different from the original. Sugars between 176 and 232 do not require a visit to the hospital. Patient was counseled multiple times on when to check BG, how to use their insulin. She is 79, sugars between 100 - 200 with average of 150 are her goal. Would they like to see the DM EDUCATOR again? [facility] 12-19-2024 Discharge summary [facility] 12-19-2024 Telephone encount er Note Call attempt back to Pt's , Elijah. Voicemail full, unable to leave message. Will route to [place] triage nurse pool in the case that Pt and/or spouse return call. *Pt does have a h/o UTI so that might be something that needs ruled out. Current insulin orders per Renetta Mcgee CNP only advise insulin be taken PRE-MEAL. They have been educated previously on not checking blood sugars too much or between meals.* Norma Devlin RN December 19, 2024 3:58 PM [facility] 12-19-2024 Telephone encount er Note Received a call from patients with patient in the background. Her glucose was 231 when she woke up at 4:45 am, she took 6 units and ate breakfast. 8:05 glucose was 194 9:45 222 took 6 units and ate lunch 12:40 -217 2:00 - 173 2:35 -156 and she felt like the blood sugar was coming down too fast so she ate a couple bites of yogurt, some Ritz crackers and a sip of apple juice 3:00 -198 3:13 -232 Patient reports excessive water drinking, 4-5 bottles asking how long should they wait before she takes more insulin or goes to the ED? Please contact patient/ back at [phone]. [facility] 12-19-2024 Discharge summary Note Date/Time December 19, 2024 5:42p m [facility] Medical Records Department [address] [place] [address] Emergency Department Summary 12/19/24 MR#: [id number] Acct: [id number] Name: ATTILA KIDD Rep #:[id number] : 1945 79 From: Abdulaziz Stratton MD PCP: Dr. Octavio Reza MD Status:RE G ER Location: ED HPI History of Present Illness Chief Complaint: Hyperglycemia Informant: patient and spouse/S.O. Onset/Context/Timing Onset: Today Context: Gradual Onset Current Severity: Mild Maximum Severity: Mild Narrative Narrative: 79-year-old female history of insulin-dependent diabetes, hypertension DVT. Took her blood sugar today was 217. Drank a bunch of water came down to 156. She was concerned it was coming down too quickly so then she ate a snack. Sugaragain was over 200. She came in. She denies any nausea vomiting diarrhea. Denies any dysuria. Denies any complaints. She was just concerned with her blood sugar. Currently feels fine. She was seen here in the middle of November labswere unremarkable at that time with blood sugar 286. Prior similar symptoms: Yes Recent Illness/Hospitalization: No PFSH [facility] Medical History THAIS (obstructive sleep apnea) Hyperglycemia due to type 2 diabetes mellitus Palpitations Sinus bradycardia Abnormal EKG Essential hypertension Premature atrial contractions Charcot's joint of left foot Asthma GERD (gastroesophageal reflux disease) History of DVT (deep vein thrombosis) Bimalleolar ankle fracture Paroxysmal SVT (supraventricular tachycardia) Premature ventricular contraction Hyperlipidemia Diabetes mellitus, type II Home Medications ?Medication ?Instructions ?Recorded ?Last Taken ?Type ramipril 10 mg capsule 10 mg PO BID HEART 01/19/19 02/06/24 History cholecalciferol (vitamin D3) 1,250 1,250 mcg PO QWEEK SUPPLEMENT 12/03/19 02/05/24 History mcg (50,000 unit) capsule budesonide-formoterol HFA 160 2 puff inhalation BID THMA 12/21/21 02/06/24 History mcg-4.5 mcg/actuation aerosol inhaler zolpidem 5 mg tablet 2.5 mg PO QHS PRN Insomnia 0 02/11/22 Unknown History insulin lispro 100 unit/mL 6 unit subcut TIDCM dm 01/0602/06/24 History subcutaneous solution omeprazole magnesium 20 mg 20 mg PO DAILY GERD 2 02/06/24 History tablet,delayed release (Prilosec OTC) amlodipine 10 mg tablet 5 mg PO DAILY 10/01/2302/05 History metoprolol tartrate 50 mg tablet 25 mg PO Q12H heart r ate, BP 10/01/23 02/06/24 History blood sugar diagnostic (OneTouch 02/06/24 Unknown His tory Ultra Test strips) insulin glargine 100 unit/mL (3 24 unit subcut QHS Unknown History mL) subcutaneous pen (Lantus Solostar U-100 Insulin) mometasone 0.1 % topical cream 1 applic topical QDAY 1 08/13/23 Unknown History aspirin 81 mg tablet,delayed 81 mg PO DAILY PRN heart health 11/15/24 Unknown History release furosemide 20 mg tablet 10 mg PO DAILY water pill Unknown History Allergy/AdvReac Type Severity Reaction Status Date / Time hydromorphone Allergy Severe Anaphylaxis Verified 12/19/24 15:49 tramadol Allergy Severe Anaphylaxis Verified 12/19/24 15:49 amiodarone Allergy Intermediate Swelling Verified 12/19/24 15:49 Mar[place]hal And Derivatives Allergy Intermediate Hives Verified 12/19/24 15:49 morphine Allergy Intermediate confusion Verified 12/19/24 15:49 moxifloxacin Allergy Intermediate Shortness Verified 12/19/24 15:49 of breath nabumetone Allergy Intermediate damaged Verified 12/19/24 15:49 kidney penicillin G Allergy Intermediate TURNS BLUE Verified 12/19/24 15:49 propoxyphene Allergy Intermediate PT UNSURE Verified 12/19/24 15:49 OF REACTION amlodipine Allergy Mild Abd Verified 12/19/24 15:49 cramps/diarrhea desloratadine Allergy Mild headache Verified 12/19/24 15:49 glutamine (From Airborne Allergy Mild Itching Verified 12/19/24 15:49 (ascorbate sodium)) herbal complex no.124 (From Allergy Mild Itching Verified 12/19/24 15:49 Airborne (ascorbate sodium)) hydrocodone (From Edon) Allergy Mild dystonia Verified 12/19/24 15:49 lysine HCl (From Airborne Allergy Mild Itching Verified 12/19/24 15:49 (ascorbate sodium)) multivitamin with minerals Allergy Mild Itching Verified 12/19/24 15:49 (From Airborne (ascorbate sodium)) pravastatin Allergy Unknown unknown Verified 12/19/24 15:49 rosuvastatin (From Crestor) Allergy Unknown myalgias Verified 12/19/24 15:49 simvastatin Allergy Unknown unknown Verified 12/19/24 15:49 escitalopram Allergy Other Verified 12/19/24 15:49 hydrochlorothiazide Allergy Other Verified 12/19/24 15:49 oseltamivir (From Tamiflu) AdvReac Severe HALLUCINATI Verified 12/19/24 15:49 ONS Yqpdmid-MOX-MaB Reductase AdvReac Severe myalgias Verified 12/19/24 15:49 Inhibitor (Fpdixlm-Aqb-Xrz Reductase Inhibitor) amoxicillin (From Augmentin) AdvReac Other Verified 12/19/24 15:49 clavulanic acid (From AdvReac Other Verified 12/19/24 15:49 Augmentin) codeine AdvReac Nausea Verified 12/19/24 15:49 naproxen (From Naprosyn) AdvReac Nausea Verified 12/19/24 15:49 Family History Mother Aortic stenosis Presence of permanent cardiac pacemaker Surgical History History of herniorrhaphy Status post ORIF of fracture of ankle History of tonsillectomy History of cholecystectomy Social History household members: spouse Smoking Status: Former smoker alcohol intake: never substance use type: does not use caffeine: Yes Type: coffee Number of servings: 3 ROS ROS ED ROS Narrative Patient denies recent illness. Constitutional Constitutional ED: Denies chills or fever(s) Eyes Eyes: Denies blurry vision ENT ENT ED: Denies ear pain Cardiovascular Cardiovascular: Denies chest pain Respiratory/Chest Respiratory/Chest: Denies cough or dyspnea Gastrointestinal Gastrointestinal: Denies abdominal pain Genitourinary Genitourinary ED: Denies dysuria or hematuria Musculoskeletal Musculoskeletal: Denies arthralgias Integumentary Denies abscess or Abrasions Neurologic Neurologic: Denies headache(s) Psychiatric Psychiatric: Denies anxiety or depression Endocrine Endocrinology: Denies cold intolerance Hematologic/Lymphatic Hematologic/Lymphatic: Reports none Allergic/Immunologic Allergic/Immunologic ED: Denies mouth swelling, tongue swelling or urticaria EXAM Physical Exam Narrative Exam Narrative: Well-appearing 79-year-old female. Vital signs stable afebrile. H EENT exam pupils round reactive light. Moist mucous membranes. Neck nontender no JVD. Lungs clear to auscultation bilaterally. Heart regular rhythm rate about 75 no murmur. Chest wall ribs nontender. Abdomen soft nontender. Moving all 4 extremities. Calves are nontender without edema or cords. 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 Normal dorsi plantarflexion. Back nontender. Neurologically she is awake alert. Answering questions following commands. She is mildly anxious. Const Vital Signs: 12/19/24 15:49 12/19/24 16:57 Temperature 97.7 F L Temperature Source Temporal Pulse Rate 77 Respiratory Rate 18 Respiratory Effort Normal Respiratory Pattern Normal Blood Pressure 167/63 H Blood Pressure Mean 97 Pulse Ox 99 Oxygen Delivery Method Room Air Positive well developed; Negative for cachectic, contractures or unkempt General Appearance ED: well developed and NAD; Negative for unkempt, cachectic, contractures, cyanotic, diaphoretic or pallor Nutritional Appearance: Negative for cachectic HEENT Reports moist mucous membranes Eyes PERRL and EOMs intact bilaterally Neck no lymphadenopathy, supple and no JVD Chest Wall inspection of chest normal and palpation of chest normal Resp normal respiratory effort and clear to auscultation bilaterally Cardio regular rate, regular rhythm, S1 normal heart sound, S2 normal heart sound and no murmurs GI normal to inspection, nondistended, normoactive bowel sounds, non-tender, non-distended and no masses Palpation: soft; Negative for tender, guarding or rebound tenderness present Back/Spine no CVA tenderness Extremity normal to inspection General Extremety ED: Negative for edema or tenderness General Extremity: Negative for edema Neuro oriented x3 and CN's II-XII intact bilaterally Sensorium / Orientation: alert; Negative for orientation impaired, lethargic or stuporous Motor Exam: strength 5/5 throughout Psych mental status grossly normal Appearance: Negative for unkempt Attitude: No agitated Mood & Affect: anxious Skin no rashes or lesions noted and no wounds General Skin Exam: Negative for jaundice or pallor Lesions: No lesion noted Rashes: No rashes noted Trauma: Negative for abrasion Wounds: Negative for wounds noted MDM MDM MDM Narrative Medical decision making narrative: Diabetic female and elevated blood sugar at home. It is only 227 here. This ismore to do with her anxiety than anything else. I reviewed she had recent labs about 3 weeks ago. They were unremarkable other than elevated blood sugar. Germán use her insulin at home as needed. Her exam is benign today. I do not think she needs any further testing. Discharge Plan Triage Chief Complaint: Hyperglycemia ED Provider: Abdulaziz Stratton Dx/Rx/DC Orders Clinical Impression: Hyperglycemia due to diabetes mellitus, Anxiety Instructions: ED Diabetic Hyperglycemia Prescriptions: No Action aspirin 81 mg tablet,delayed release (DR/EC) 81 mg PO DAILY PRN (Reason: heart health) Patient Comments: only takes sometimes cholecalciferol (vitamin D3) 1,250 mcg (50,000 unit) capsule 1,250 mcg PO QWEEK insulin lispro 100 unit/mL solution 6 unit subcut TIDCM Protocol: 4. Sliding Scale Insulin High-Med Dosing Condition: 150-199 mg/dl = 2 units Condition: 200-259 mg/dl = 4 units Condition: 260-324 mg/dl = 6 units Condition: 325-374 mg/dl = 8 units Condition: 375-409 mg/dl = 10 units Condition: 410-449 mg/dl = 11 units Condition: Greater than 449 call physician Protocol Text: - Use for Total Daily Dose of Insulin 56-80 units - Patient who are insulin resistant or septic HIGH MEDIUM DOSING ALGORITHM Patient Comments: INJECT 3 TO 10 UNITS SUBCUTANEOUSLY BEFORE MEALS DIRECTED furosemide 20 mg tablet 10 mg PO DAILY budesonide-formoterol 160-4.5 mcg/actuation HFA aerosol inhaler 2 puff inhalation BID omeprazole magnesium [Prilosec OTC] 20 mg tablet,delayed release (DR/EC) 20 mg PO DAILY mometasone 0.1 % cream 1 applic topical QDAY ramipril 10 MG capsule 10 mg PO BID Patient Comments: TAKE 1 CAPSULE BY MOUTH TWICE DAILY zolpidem 5 mg Tablet 2.5 mg PO QHS PRN (Reason: Insomnia) metoprolol tartrate 50 mg tablet 25 mg PO Q12H Patient Comments: takes half tablet in morning and night amlodipine 10 mg tablet 5 mg PO DAILY Patient Comments: takes half tablet/day (DME) OneTouch Ultra Test Strip MISCELLANEOUS Patient Comments: [NO ORIGINAL SIG] insulin glargine [Lantus Solostar U-100 Insulin] 100 unit/mL (3 mL) insulin pen 24 unit subcut QHS Rx Instructions: 20-26u Primary Care Provider: Octavio Reza Referrals: Octavio Reza MD [Primary Care Provider] - As Needed Activity Restrictions/Additional Instructions: Your exam is good today. The labs you had done in the middle of November were good also. Your blood sugar here today was 227. Take your insulin per your sliding scale when you get home. Print Language: Gibraltarian Disposition Disposition: Home, Self Care What to do if you have Problems For any increased pain, shortness of breath, bleeding, nausea or vomiting, chestpain, or any unexpected problems, contact your Primary Care Provider. Call [facility] ([phone]) or report to the closest Emergency Room. Call 911 if necessary. 12/19/24 1742 <Electronically signed by Abdulaziz Stratton MD> Cosigner Signature (if applicable): CC: Dr. 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 Patient consents to pharmacy collaborative practice agreement. . Last Pharmacy Visit: 11/06/24 HPI: On speaker phone with , Elijah Reports doing well States she feels like blood sugar control is continuously getting better Current DM Medications: Lantus 24 units once daily Insulin aspart 5 units with breakfast, 4 units with lunch, 5 units with dinner + SS#1 Diet Denies any recent changes Breakfast is always the same, 1 piece of rye bread with 2 eggs and coffee GLYCEMIC CONTROL: Glucometer present at visit: BG log present Hypoglycemia: Yes - feels shakiness with BGs <90 SMBGS (Fingersticks) Date Fasting AM Insulin dose 2 hr PP Before Lunch Insulin dose 2 hr PP Before Dinner Insulin dose 2hr PP Bedtime Basal Insulin 12/18 167 6 60 111 148 12/17 105 5 96* 158 153 133 5 90 183 22 12/16 233 7 203 218 6 189 178 6 195 181 22 12/15 124 5 150 5 155 166 6 166 211 12/14 186 6 158 5 94 177 221 7 200 158 12/13 186 6 138 175 5 231 218 7 92 155 12/12 86* 156 6 126 138 4 190 177 6 205 191 22 12/11 165 6 152 223 307 8 206 236 228 197 186 6 218 191 22 12/10 144 5 120 141 4 186 193 6 201 220 12/09 131 5 80* 208 6 166 164 6 119 155 20 AVG 153 125 180 180 186 165 182 treated with apple juice and PB crackers *snack = PB crackers and yogurt Past medical history reviewed. ALLERGIES Allergen Reactions Hctz [Amiloride-Hyd* Other: See Comments Rapid heart beat, nausea, light eaded. (lasted about 12 hours after first dose) Oseltamivir Mental Status Change hallucinations Doxycycline GI Upset Escitalopram Intolerance Fatigued after just a half pill dose. Did not want to take anymore. Lysine Itching Naprosyn [Naproxen] GI Upset Nausea Qqcbptr-Ktr-Ebl Red* Myalgia Tylenol-Codeine #3 * Vomiting Ventolin [Albuterol* GI Upset, Vomiting Current Outpatient Medications Medication Sig Dispense Refill SYMBICORT 160-4.5 mcg/actuation inhaler Inhale 2 puffs as instructed two times a day. 11 g 5 blood sugar diagnostic (BLOOD GLUCOSE TEST) test strip Test blood sugar(s) 8 times daily--MedicallyNecessary for labile blood sugars (highs and lows). Dx: Other DM Code E10.8, E11.610 Insulin: Yes 300 strip 11 insulin glargine (LANTUS SOLOSTAR U-100 INSULIN) 100 unit/mL (3 mL) Inject 24 units once daily 27 mL 3 insulin aspart U-100 (NOVOLOG U-100 INSULIN ASPART) 100 unit/mL Inject 5 units with breakfast, 4 units with lunch, 5 units dinner. PLUS SS#1 (1 units for every 50 over 150 PRE MEAL blood sugar) TDD 52 units daily TYPE I DIABETES, insulin dependent, E10.65 20 mL 3 zolpidem (AMBIEN) 5 mg tablet Take 0.5-1 tablets by mouth at bedtime as needed for up to 90 days. Needs larger pill dispensed to cut in half. Patient should start on October 25, 2024. 30 tablet 2 cholecalciferol, Vitamin D3, (VITAMIN D3) 1,250 mcg (50,000 unit) cap capsule Take 1 capsule by mouth one time a week. 12 capsule 4 mometasone (ELOCON) 0.1 % cream Apply to affected area once daily as needed (for scalp psoriasis). For 14 days. Treat for recurrences. Apply at bedtime then wash off in the morning 45 g 1 benzonatate (TESSALON PERLES) 100 mg capsule Take 1 capsule by mouth three times a day as needed for cough. 21 capsule 0 albuterol HFA (PROVENTIL HFA, VENTOLIN HFA) 90 mcg/actuation inhaler Inhale 2 Puffs as instructed four times a day as needed. FOR WHEEZING AND SHORTNESS OF BREATH. 1 Each 1 amLODIPine (NORVASC) 10 mg tablet Take 0.5 tablets by mouth once daily. 90 tablet 3 metoprolol tartrate, short acting, (LOPRESSOR) 50 mg tablet Take 1/2 tablet by mouth twice a day 90tablet 3 ramipril (ALTACE) 10 mg capsule Take 1 capsule by mouth two times a day. 180 capsule 3 Chlorhexidine Gluconate (PERIDEX) 0.12 % solution Use 15 mL as instructed two times a day. glucagon (GVOKE HYPOPEN 1-PACK) 1 mg/0.2 mL auto-injector Inject 1 mg subcutaneously as needed. 0.2mL 3 aspirin, enteric coated (ASPIRIN, ENTERIC COATED) 81 mg EC tablet Take 1 tablet by mouth two times a day. furosemide (LASIX) 20 mg tablet Take 1 tablet by mouth once daily as needed. 90 tablet 3 flash glucose sensor (FREESTYLE RAISSA 2 SENSOR) kit Apply new sensor every fourteen (14) days to upper arm. (Patient not taking: Reported on 05/23/2024) 6 Each 4 Insulin [place], Disposable, (BD ULTRA-FINE FADY PEN NEEDLE) 32 gauge x /32 Use one needle for each dose. 1-2 /day. 100 Each 11 COMPOUNDED PRESCRIPTION Bi-PAP nose pads. (G47.33) THAIS treated with BiPAP 2 Device 1 ibuprofen 200 mg tablet Take 1-2 tablets by mouth four times daily as needed (Take with food.). --currently only needing 1 pill twice daily to help with cough No current facility-administered medications for this visit. Pill bottles are not present. Adherence: denies missed doses. Rx coverage: Payor: [employer] MEDICARE / Plan: [employer] MEDICARE PPO / Product Type: PPO / Medications affordable? Yes PHARMACOTHERAPY PREVENTATIVE MEDS: On JOEY/ARB: Yes On Statin: No On ASA: Yes EXAM: There were no vitals taken for this visit. Last 3 Encounter BP Readings: Date: BP: 10/15/2024 140/64 09/26/2024 143/75 07/03/2024 132/73[bp average[ Wt: 131.7 kg (290 lb 6.4 oz) BMI: 42.27 kg/(m^2) LABS: Lab Results Component Value Date HBA1C 7.1 08/20/2024 HBA1C 6.9 05/23/2024 HBA1C 7.7 12/07/2023 HBA1C 7.7 09/01/2023 HBA1C 7.8 09/02/2021 HBA1C 7.4 05/04/2021 HBA1C 8.4 01/06/2021 Glucose 173 10/01/2024 BUN 17 10/01/2024 Creatinine, Whole Blood (iSTAT) 0.69 10/01/2024 Sodium 140 10/01/2024 Potassium 4.4 10/01/2024 Chloride 102 10/01/2024 CO2 29 10/01/2024 Protein, Total 6.5 10/01/2024 Albumin 3.9 10/01/2024 Calcium 9.4 10/01/2024 Alkaline Phosphatase 74 10/01/2024 Bilirubin, Total 0.6 10/01/2024 AST 21 10/01/2024 ALT 21 10/01/2024 Lab Results Component Value Date CHOL 197 08/20/2024 CHOL 175 01/27/2024 CHOL 180 05/04/2021 LDL 120 08/20/2024 LDL 105 05/04/2021 HDL 59 08/20/2024 HDL 62 01/27/2024 HDL 58 05/04/2021 TG 92 08/20/2024 TG 77 01/27/2024 TG 84 05/04/2021 Albumin/Creat Ratio (mg/g) Date Value 10/01/2024 <27 eGFR-All Other Races (.) Date Value 09/11/2021 >60 Estimated Glomerular Filtration Rate (mL/min/1.73m ) Date Value 10/01/2024 88 ASSESSMENT/PLAN: 1. 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 Overdue Diabetes Health Maintenance: Health Maintenance - Diabetes Topic Date Due Diabetic Foot Exam 10/27/2021 Follow Up: Next PCP visit: 01/15/25 Next endo visit: 02/06/25 Next PharmD visit: 02/25/25 Charis Lucas, PharmD, BCACP Primary Care Clinical Global Sales Manager [facility] encounter Note* Telephone Encounter - Pattie Giles RN - 12/14/2024 4:01 PM EDT Patient calls with question about blood sugar and SS Insulin dosing for BS 177. Reviewed medicationand instructions. Patient should take 5 units of insulin aspart with dinner unless BS is 200 or above. Spouse is disagreeing with patient so calling for clarification. Answered patient's questions and clarified dose with verbalized understanding. Nothing further needed at this time. Pattie Giles RN [facility]05-30-2025 Miscellaneous Notes* Telephone Encounter - Pattie Giles RN - 12/14/2024 4:01 PM EDT Patient calls with question about blood sugar and SS Insulin dosing for BS 177. Reviewed medicationand instructions. Patient should take 5 units of insulin aspart with dinner unless BS is 200 or above. Spouse is disagreeing with patient so calling for clarification. Answered patient's questions and clarified dose with verbalized understanding. Nothing further needed at this time. Pattie Giles RN documented in this encounterW[facility] Telephone encounter Note * Telephone Encounter - Cesar Brush LPN - 12/12/2024 2:25 PM EDT The patient has been identified by name and date of : Yes Caregiver verified no other encounters exist for this prescription request: Yes Caregiver confirmed with patient/requestor that no other refills are due, in the near future, with this provider at this time: Yes The last office visit in the department: 10/15/2024 Does the patient have a future office visit with this provider/department: Yes 01/15/2025 Requested Prescriptions Pending Prescriptions Disp Refills SYMBICORT 160-4.5 mcg/actuation inhaler 11 g 5 Sig: Inhale 2 puffs as instructed two times a day. Cesar Brush LPN December 12, 2024 2:25 PM [facility]05-28-2025 Miscellaneous Notes* Telephone Encounter - Cesar Brush LPN - 12/12/2024 2:25 PM EDT The patient has been identified by name and date of : Yes Caregiver verified no other encounters exist for this prescription request: Yes Caregiver confirmed with patient/requestor that no other refills are due, in the near future, with this provider at this time: Yes The last office visit in the department: 10/15/2024 Does the patient have a future office visit with this provider/department: Yes 01/15/2025 Requested Prescriptions Pending Prescriptions Disp Refills SYMBICORT 160-4.5 mcg/actuation inhaler 11 g 5 Sig: Inhale 2 puffs as instructed two times a day. Cesar Brush LPN December 12, 2024 2:25 PM documented in this encounterWad[facility] Telephone encounter Note * Telephone Encounter - Davon Wolfe APRN.CNP - 12/12/2024 12:45 PM EDT Noted and agree. [facility]05-28-[facility]25 Miscellaneous Notes* Telephone Encounter - Davon Wolfe APRN.CNP - 12/12/2024 12:45 PM EDT Noted and agree. * Telephone Encounter - Gloria Rand RN - 12/12/2024 9:22 AM EDT Pt calling in as she is using her pulse ox and noted that her pulse is in the 50s. Pt is concerned and wondering what she can do to bring her pulse back up. She has tried several things with no success. Pt is currently taking Metoprolol 25 mg twice daily-pt states she usually takes it at 6 am and 6pm. Pt states maybe feels a little lightheaded and has a feeling of exhaustion. But she feels like this off and on. Had pt take her BP and it was 154/81 and pulse 61. In looking back at previous office visits, pt's pulse has ranched anywhere from 51-86. Pt reassured that this is normal and that her Metoprolol can lower her pulse rate. Pt instructed if she feels any dizziness, lightheadedness like she is going to pass out or anything unusual to give us a call back. Pt verbalizes understanding. [facility] encounter Note * Telephone Encounter - Gloria Rand RN - 12/12/2024 9:22 AM EDT Pt calling in as she is using her pulse ox and noted that her pulse is in the 50s. Pt is concerned and wondering what she can do to bring her pulse back up. She has tried several things with no success. Pt is currently taking Metoprolol 25 mg twice daily-pt states she usually takes it at 6 am and 6pm. Pt states maybe feels a little lightheaded and has a feeling of exhaustion. But she feels like this off and on. Had pt take her BP and it was 154/81 and pulse 61. In looking back at previous office visits, pt's pulse has ranched anywhere from 51-86. Pt reassured that this is normal and that her Metoprolol can lower her pulse rate. Pt instructed if she feels any dizziness, lightheadedness like she is going to pass out or anything unusual to give us a call back. Pt verbalizes understanding. [facility]05-[facility] Discharge summary [facility] Medical Records Department [address] [place] [address] Emergency Department Summary 11/29/24 MR#: [id number] Acct: [id number] Name: ATTILA KIDD Rep #:[id number] : 1945 79 From: Serg Solis MD PCP: Dr. Octavio Reza MD Status:RE G ER Location: ED HPI History of Present Illness Chief Complaint: Hyperglycemia Narrative Narrative: 79-year-old female past medical history of hypertension, diabetes, on sliding scale insulin presents with her because of elevated blood glucose. She states that she usually takes a sliding scale before she eats. Based on what her blood sugar is at the time. Recently, her blood sugars have been controlled. She was having company and she wanted to take the right amount of insulin because she wanted to spend time with her casts. She states that her and she administered 6 units of insulin at suppertime. She felt as if her blood sugar was dropping, and started frequently checking it. She denies any recent fevers or chills, no nausea or vomiting, no diarrhea. No problems with urina tion, no dysuria or hematuria. However, she noticed that when she thought her blood sugar was low, was around 125. She then noticed that they started elevating in the 200s, and even as high as in eed177's. She presents with concern of her elevated blood sugar and she states that she can eat when she felt her blood sugar was dropping. No recent illness or cough. [facility] Medical History THAIS (obstructive sleep apnea) Hyperglycemia due to type 2 diabetes mellitus Palpitations Sinus bradycardia Abnormal EKG Essential hypertension Premature atrial contractions Charcot's joint of left foot Asthma GERD (gastroesophageal reflux disease) History of DVT (deep vein thrombosis) Bimalleolar ankle fracture Paroxysmal SVT (supraventricular tachycardia) Premature ventricular contraction Hyperlipidemia Diabetes mellitus, type II Home Medications ?Medication ?Instructions ?Recorded ?Last Taken ?Type ramipril 10 mg capsule 10 mg PO BID HEART 01/19/19 02/06/24 History cholecalciferol (vitamin D3) 1,250 1,250 mcg PO QWEEK SUPPLEMENT 12/03/19 02/05/24 History mcg (50,000 unit) capsule budesonide-formoterol HFA 160 2 puff inhalation BID THMA 12/21/21 02/06/24 History mcg-4.5 mcg/actuation aerosol inhaler zolpidem 5 mg tablet 2.5 mg PO QHS PRN Insomnia 0 02/11/22 Unknown History insulin lispro 100 unit/mL 6 unit subcut TIDCM dm 01/0602/06/24 History subcutaneous solution omeprazole magnesium 20 mg 20 mg PO DAILY GERD 2 02/06/24 History tablet,delayed release (Prilosec OTC) amlodipine 10 mg tablet 5 mg PO DAILY 10/01/2302/05 History metoprolol tartrate 50 mg tablet 25 mg PO Q12H heart r ate, BP 10/01/23 02/06/24 History blood sugar diagnostic (OneTouch 02/06/24 Unknown His tory Ultra Test strips) insulin glargine 100 unit/mL (3 24 unit subcut QHS Unknown History mL) subcutaneous pen (Lantus Solostar U-100 Insulin) mometasone 0.1 % topical cream 1 applic topical QDAY 1 08/13/23 Unknown History aspirin 81 mg tablet,delayed 81 mg PO DAILY PRN heart health 11/15/24 Unknown History release furosemide 20 mg tablet 10 mg PO DAILY water pill Unknown History Allergy/AdvReac Type Severity Reaction Status Date / Time hydromorphone Allergy Severe Anaphylaxis Verified 11/29/24 21:13 tramadol Allergy Severe Anaphylaxis Verified 11/29/24 21:13 amiodarone Allergy Intermediate Swelling Verified 11/29/24 21:13 Marienthal And Derivatives Allergy Intermediate Hives Verified 11/29/24 21:13 morphine Allergy Intermediate confusion Verified 11/29/24 21:13 moxifloxacin Allergy Intermediate Shortness Verified 11/29/24 21:13 of breath nabumetone Allergy Intermediate damaged Verified 11/29/24 21:13 kidney penicillin G Allergy Intermediate TURNS BLUE Verified 11/29/24 21:13 propoxyphene Allergy Intermediate PT UNSURE Verified 11/29/24 21:13 OF REACTION amlodipine Allergy Mild Abd Verified 11/29/24 21:13 cramps/diarrhea desloratadine Allergy Mild headache Verified 11/29/24 21:13 glutamine (From Airborne Allergy Mild Itching Verified 11/29/24 21:13 (ascorbate sodium)) herbal complex no.124 (From Allergy Mild Itching Verified 11/29/24 21:13 Airborne (ascorbate sodium)) hydrocodone (From Edon) Allergy Mild dystonia Verified 11/29/24 21:13 lysine HCl (From Airborne Allergy Mild Itching Verified 11/29/24 21:13 (ascorbate sodium)) multivitamin with minerals Allergy Mild Itching Verified 11/29/24 21:13 (From Airborne (ascorbate sodium)) pravastatin Allergy Unknown unknown Verified 11/29/24 21:13 rosuvastatin (From Crestor) Allergy Unknown myalgias Verified 11/29/24 21:13 simvastatin Allergy Unknown unknown Verified 11/29/24 21:13 escitalopram Allergy Other Verified 11/29/24 21:13 hydrochlorothiazide Allergy Other Verified 11/29/24 21:13 oseltamivir (From Tamiflu) AdvReac Severe HALLUCINATI Verified 11/29/24 21:13 ONS Hljbfkj-JPD-EnO Reductase AdvReac Severe myalgias Verified 11/29/24 21:13 Inhibitor (Ciksbrq-Wnd-Ugc Reductase Inhibitor) amoxicillin (From Augmentin) AdvReac Other Verified 11/29/24 21:13 clavulanic acid (From AdvReac Other Verified 11/29/24 21:13 Augmentin) codeine AdvReac Nausea Verified 11/29/24 21:13 naproxen (From Naprosyn) AdvReac Nausea Verified 11/29/24 21:13 Family History Mother Aortic stenosis Presence of permanent cardiac pacemaker Surgical History History of herniorrhaphy Status post ORIF of fracture of ankle History of tonsillectomy History of cholecystectomy Social History household members: spouse Smoking Status: Former smoker alcohol intake: never substance use type: does not use caffeine: Yes Type: coffee Number of servings: 3 ROS ROS ED ROS Narrative Review of systems positive for elevated blood sugars. Denies fever, chills, nausea, vomiting, diarrhea, abdominal pain, shortness of breath or chest pain, no cough, no dysuria or hematuria. EXAM Physical Exam Narrative Exam Narrative: Afebrile. Vital signs noted. Nontoxic-appearing. Cardiovascular examination feels a regular rate and rhythm. Lungs clear to auscultation bilaterally. Abdomen is soft, nontender, without guarding or rebound. Positive bowel sounds. Neurological examination nonfocal, nonlateralizing. Mild anxiety regarding elevation of blood sugars. Const Vital Signs: 11/29/24 21:13 Temperature 97 F L Temperature Source Temporal Pulse Rate 71 Respiratory Rate 15 Blood Pressure 156/66 H Blood Pressure Mean 96 Pulse Ox 97 Oxygen Delivery Method Room Air MDM MDM MDM Narrative Medical decision making narrative: Differential diagnosis includes but not limited to diabetic ketoacidosis versus honk versus hyperglycemia associated with diabetes versus uncontrolled blood sugar/blood glucose. Tgvgq-cv-inay glucosewill be obtained. Blood work will be obtained in the form of CBC, CMP, beta hydroxybutyrate. She will be bolused normal saline 1 L intravenously. Additionally, UA will be checked. I reviewed her laboratory work and she has normal white count of 5.3 with hemoglobin normal at 12.6, hematocrit 38.2, platelet count normal at 153. CMP is remarkable for elevated glucose of 286 but she has a normal anion gap of 11, BUN 18 and creatinine 0.82. Sodium normal at 135 and potassium 4.2. Urinalysisdoes show 15 ketones which I think is nonspecific, nitrate negative and leukocyte Estracenegative, WBC 05. I do not feel antibiotics are indicated. Although her beta hydroxybutyrate is slightly elevated at 1.0, I do not feel sheis in diabetic ketoacidosis because of her normal anion gap.She feels well. Jesus feel that she can be discharged to follow-up and that she does not require admission at this time. I discussed this with her and her as well. I feel she can be discharged to follow-up. She can take her Lantus at home. She will follow-up with her escrow closer tomorrow.Where of care glucose after 1L is 265. Once again, as she has not experiencing nausea or vomiting, I feel she can be discharged to take her 22 units of Lantus and follow-up with her escrow closer tomorrow. Patient motivated for discharge. is also agreeable to the plan. Return instructionsreviewed. Disposition is discharged home in stable condition. History & Record Review Discussion w/independent historian: Patient and Family Additional record(s) reviewed:: Prior ED visit and Prior labs Lab Data Attestation: I reviewed the patient's lab results. Labs: Laboratory Results - last 24 hr 11/29/24 11/29/24 11/29/24 21:26 22:03 22:05 WBC 5.3 RBC 4.20 Hgb 12.6 Hct 38.2 MCV 91.0 MCH 30.0 MCHC 33.0 RDW Std Deviation 41.7 RDW Coeff of Madalyn 12.6 Plt Count 153 MPV 12.1 H Immature Gran % (Auto) 0.000 Neut % (Auto) 64.8 Lymph % (Auto) 20.6 Titus % (Auto) 7.2 Eos % (Auto) 6.6 H Baso % (Auto) 0.8 Absolute Neuts (auto) 3.4 Absolute Lymphs (auto) 1.09 Nucleated RBC % 0 Sodium 135 Potassium 4.2 Chloride 100 Carbon Dioxide 22.8 Anion Gap 11 BUN 18 Creatinine 0.82 Estim Creat Clear Calc 81.15 Est GFR (MDRD) Non-Af 73 BUN/Creatinine Ratio 21.6 H Glucose 286 H Calcium 9.0 Total Bilirubin 0.72 AST 23 ALT 15 Alkaline Phosphatase 75 Total Protein 6.5 Albumin 3.8 Globulin 2.7 Albumin/Globulin Ratio 1.4 b-Hydroxybutyric mmol/L 1.0 Urine Color Straw Urine Clarity Clear Urine pH 6.0 Ur Specific [place] 1.015 Urine Protein 15 H Urine Glucose (UA) 50 H Urine Ketones 15 H Urine Occult Blood Negative Urine Nitrite Negative Urine Bilirubin Negative Urine Urobilinogen Normal Ur Leukocyte Esterase Negative Urine RBC 0 SEEN Urine WBC 0-5 SEEN Ur Squamous Epith Cells 0-5 SEEN Urine Bacteria 0 SEEN Urine Mucus 0 SEEN POC Glucose 275 H Discharge Plan Triage Chief Complaint: Hyperglycemia ED Provider: Serg Solis Dx/Rx/DC Orders Clinical Impression: Hyperglycemia, Essential hypertension, Hyperglycemia due to type 2 diabetes mellitus Instructions: ED Diabetic Hyperglycemia Prescriptions: No Action aspirin 81 mg tablet,delayed release (DR/EC) 81 mg PO DAILY PRN (Reason: heart health) Patient Comments: only takes sometimes cholecalciferol (vitamin D3) 1,250 mcg (50,000 unit) capsule 1,250 mcg PO QWEEK insulin lispro 100 unit/mL solution 6 unit subcut TIDCM Protocol: 4. Sliding Scale Insulin High-Med Dosing Condition: 150-199 mg/dl = 2 units Condition: 200-259 mg/dl = 4 units Condition: 260-324 mg/dl = 6 units Condition: 325-374 mg/dl = 8 units Condition: 375-409 mg/dl = 10 units Condition: 410-449 mg/dl = 11 units Condition: Greater than 449 call physician Protocol Text: - Use for Total Daily Dose of Insulin 56-80 units - Patient who are insulin resistant or septic HIGH MEDIUM DOSING ALGORITHM Patient Comments: INJECT 3 TO 10 UNITS SUBCUTANEOUSLY BEFORE MEALS DIRECTED furosemide 20 mg tablet 10 mg PO DAILY budesonide-formoterol 160-4.5 mcg/actuation HFA aerosol inhaler 2 puff inhalation BID omeprazole magnesium [Prilosec OTC] 20 mg tablet,delayed release (DR/EC) 20 mg PO DAILY mometasone 0.1 % cream 1 applic topical QDAY ramipril 10 MG capsule 10 mg PO BID Patient Comments: TAKE 1 CAPSULE BY MOUTH TWICE DAILY zolpidem 5 mg Tablet 2.5 mg PO QHS PRN (Reason: Insomnia) metoprolol tartrate 50 mg tablet 25 mg PO Q12H Patient Comments: takes half tablet in morning and night amlodipine 10 mg tablet 5 mg PO DAILY Patient Comments: takes half tablet/day (DME) OneTouch Ultra Test Strip MISCELLANEOUS Patient Comments: [NO ORIGINAL SIG] insulin glargine [Lantus Solostar U-100 Insulin] 100 unit/mL (3 mL) insulin pen 24 unit subcut QHS Rx Instructions: 20-26u Primary Care Provider: Octavio Reza Referrals: Octavio Reza MD [Primary Care Provider] - Activity Restrictions/Additional Instructions: Follow-up with your escrow closer tomorrow. Call them with a log of your blood sugars as you havebeen. Keep a log of your blood sugars. Return with fever, chills, nausea, vomiting, abdominal pain,new or worsening symptoms. Print Language: Gibraltarian Disposition Disposition: Home, Self Care What to do if you have Problems For any increased pain, shortness of breath, bleeding, nausea or vomiting, chestpain, or any unexpected problems, contact your Primary Care Provider. Call [facility] ([phone]) or report tothe closest Emergency Room. Call 911 if necessary. 11/29/24 0786 Cosigner Signature (if applicable): CC: Dr. Octavio Reza MD ~ Signed [facility]05-15-2025 Discharge summary Author Serg Solis [facility] Note Date/Time November 29, 2024 11:31 pm [facility] Medical Records Department [address] [place] [address] Emergency Department Summary 11/29/24 MR#: [id number] Acct: [id number] Name: MARTIATTILA Rep #:[id number] : 1945 79 From: Serg Solis MD PCP: Dr. Octavio Reza MD Status:RE G ER Location: ED HPI History of Present Illness Chief Complaint: Hyperglycemia Narrative Narrative: 79-year-old female past medical history of hypertension, diabetes, on sliding scale insulin presents with her because of elevated blood glucose. She states that she usually takes a sliding scale before she eats. Based on what her blood sugar is at the time. Recently, her blood sugars have been controlled. She was having company and she wanted to take the right amount of insulin because she wanted to spend time with her casts. She states that her and she administered 6 units of insulin at suppertime. She felt as if her blood sugar was dropping, and started frequently checking it. She denies any recent fevers or chills, no nausea or vomiting, no diarrhea. No problems with urination, no dysuria or hematuria. However, she noticed that when she thought her blood sugar was low, was around 125. She then noticed that they started elevating in the 200s, and even as high as in the 250's. She presents with concern of her elevated blood sugar and she states that she can eat when she felt her blood sugar was dropping. No recent illness or cough. [facility] Medical History THAIS (obstructive sleep apnea) Hyperglycemia due to type 2 diabetes mellitus Palpitations Sinus bradycardia Abnormal EKG Essential hypertension Premature atrial contractions Charcot's joint of left foot Asthma GERD (gastroesophageal reflux disease) History of DVT (deep vein thrombosis) Bimalleolar ankle fracture Paroxysmal SVT (supraventricular tachycardia) Premature ventricular contraction Hyperlipidemia Diabetes mellitus, type II Home Medications ?Medication ?Instructions ?Recorded ?Last Taken ?Type ramipril 10 mg capsule 10 mg PO BID HEART 01/19/19 02/06/24 History cholecalciferol (vitamin D3) 1,250 1,250 mcg PO QWEEK SUPPLEMENT 12/03/19 02/05/24 History mcg (50,000 unit) capsule budesonide-formoterol HFA 160 2 puff inhalation BID THMA 12/21/21 02/06/24 History mcg-4.5 mcg/actuation aerosol inhaler zolpidem 5 mg tablet 2.5 mg PO QHS PRN Insomnia 0 02/11/22 Unknown History insulin lispro 100 unit/mL 6 unit subcut TIDCM dm 1201/0602/06/24 History subcutaneous solution omeprazole magnesium 20 mg 20 mg PO DAILY GERD 2 02/06/24 History tablet,delayed release (Prilosec OTC) amlodipine 10 mg tablet 5 mg PO DAILY 10/01/2302/05 History metoprolol tartrate 50 mg tablet 25 mg PO Q12H heart r ate, BP 10/01/23 02/06/24 History blood sugar diagnostic (OneTouch 02/06/24 Unknown His tory Ultra Test strips) insulin glargine 100 unit/mL (3 24 unit subcut QHS Unknown History mL) subcutaneous pen (Lantus Solostar U-100 Insulin) mometasone 0.1 % topical cream 1 applic topical QDAY 1 08/13/23 Unknown History aspirin 81 mg tablet,delayed 81 mg PO DAILY PRN heart health 11/15/24 Unknown History release furosemide 20 mg tablet 10 mg PO DAILY water pill Unknown History Allergy/AdvReac Type Severity Reaction Status Date / Time hydromorphone Allergy Severe Anaphylaxis Verified 11/29/24 21:13 tramadol Allergy Severe Anaphylaxis Verified 11/29/24 21:13 amiodarone Allergy Intermediate Swelling Verified 11/29/24 21:13 Marienthal And Derivatives Allergy Intermediate Hives Verified 11/29/24 21:13 morphine Allergy Intermediate confusion Verified 11/29/24 21:13 moxifloxacin Allergy Intermediate Shortness Verified 11/29/24 21:13 of breath nabumetone Allergy Intermediate damaged Verified 11/29/24 21:13 kidney penicillin G Allergy Intermediate TURNS BLUE Verified 11/29/24 21:13 propoxyphene Allergy Intermediate PT UNSURE Verified 11/29/24 21:13 OF REACTION amlodipine Allergy Mild Abd Verified 11/29/24 21:13 cramps/diarrhea desloratadine Allergy Mild headache Verified 11/29/24 21:13 glutamine (From Airborne Allergy Mild Itching Verified 11/29/24 21:13 (ascorbate sodium)) herbal complex no.124 (From Allergy Mild Itching Verified 11/29/24 21:13 Airborne (ascorbate sodium)) hydrocodone (From Edon) Allergy Mild dystonia Verified 11/29/24 21:13 lysine HCl (From Airborne Allergy Mild Itching Verified 11/29/24 21:13 (ascorbate sodium)) multivitamin with minerals Allergy Mild Itching Verified 11/29/24 21:13 (From Airborne (ascorbate sodium)) pravastatin Allergy Unknown unknown Verified 11/29/24 21:13 rosuvastatin (From Crestor) Allergy Unknown myalgias Verified 11/29/24 21:13 simvastatin Allergy Unknown unknown Verified 11/29/24 21:13 escitalopram Allergy Other Verified 11/29/24 21:13 hydrochlorothiazide Allergy Other Verified 11/29/24 21:13 oseltamivir (From Tamiflu) AdvReac Severe HALLUCINATI Verified 11/29/24 21:13 ONS Rgnmose-YTE-KwF Reductase AdvReac Severe myalgias Verified 11/29/24 21:13 Inhibitor (Lbsctvi-Byd-Nnz Reductase Inhibitor) amoxicillin (From Augmentin) AdvReac Other Verified 11/29/24 21:13 clavulanic acid (From AdvReac Other Verified 11/29/24 21:13 Augmentin) codeine AdvReac Nausea Verified 11/29/24 21:13 naproxen (From Naprosyn) AdvReac Nausea Verified 11/29/24 21:13 Family History Mother Aortic stenosis Presence of permanent cardiac pacemaker Surgical History History of herniorrhaphy Status post ORIF of fracture of ankle History of tonsillectomy History of cholecystectomy Social History household members: spouse Smoking Status: Former smoker alcohol intake: never substance use type: does not use caffeine: Yes Type: coffee Number of servings: 3 ROS ROS ED ROS Narrative Review of systems positive for elevated blood sugars. Denies fever, chills, nausea, vomiting, diarrhea, abdominal pain, shortness of breath or chest pain, no cough, no dysuria or hematuria. EXAM Physical Exam Narrative Exam Narrative: Afebrile. Vital signs noted. Nontoxic-appearing. Cardiovascular examination feels a regular rate and rhythm. Lungs clear to auscultation bilaterally. Abdomen is soft, nontender, without guarding or rebound. Positive bowel sounds. Neurological examination nonfocal, nonlateralizing. Mild anxiety regarding elevation of blood sugars. Const Vital Signs: 11/29/24 21:13 Temperature 97 F L Temperature Source Temporal Pulse Rate 71 Respiratory Rate 15 Blood Pressure 156/66 H Blood Pressure Mean 96 Pulse Ox 97 Oxygen Delivery Method Room Air MDM MDM MDM Narrative Medical decision making narrative: Differential diagnosis includes but not limited to diabetic ketoacidosis versus honk versus hyperglycemia associated with diabetes versus uncontrolled blood sugar/blood glucose. Opkyf-il-btzo glucose will be obtained. Blood work will be obtained in the form of CBC, CMP, beta hydroxybutyrate. She will be bolused normal saline 1 L intravenously. Additionally, UA will be checked. I reviewed her laboratory work and she has normal white count of 5.3 with hemoglobin normal at 12.6, hematocrit 38.2, platelet count normal at 153. CMP is remarkable for elevated glucose of 286 but she has a normal anion gap of 11, BUN 18 and creatinine 0.82. Sodium normal at 135 and potassium 4.2. Urinalysisdoes show 15 ketones which I think is nonspecific, nitrate negative and leukocyte Estrace negative, WBC 05. I do not feel antibiotics are indicated. Although her beta hydroxybutyrate is slightly elevated at 1.0, I do not feel sheis in diabetic ketoacidosis because of her normal anion gap. She feels well. Jesus feel that she can be discharged to follow-up and that she does not require admission at this time. I discussed this with her and her as well. I feel she can be discharged to follow-up. She can take her Lantus at home. She will follow-up with her escrow closer tomorrow. Where of care glucose after 1L is 265. Once again, as she has not experiencing nausea or vomiting, I feel she can be discharged to take her 22 units of Lantus and follow-up with her escrow closer tomorrow. Patient motivated for discharge. is also agreeable to the plan. Return instructions reviewed. Disposition is discharged home in stable condition. History & Record Review Discussion w/independent historian: Patient and Family Additional record(s) reviewed:: Prior ED visit and Prior labs Lab Data Attestation: I reviewed the patient's lab results. Labs: Laboratory Results - last 24 hr 11/29/24 11/29/24 11/29/24 21:26 22:03 22:05 WBC 5.3 RBC 4.20 Hgb 12.6 Hct 38.2 MCV 91.0 MCH 30.0 MCHC 33.0 RDW Std Deviation 41.7 RDW Coeff of Madalyn 12.6 Plt Count 153 MPV 12.1 H Immature Gran % (Auto) 0.000 Neut % (Auto) 64.8 Lymph % (Auto) 20.6 Titus % (Auto) 7.2 Eos % (Auto) 6.6 H Baso % (Auto) 0.8 Absolute Neuts (auto) 3.4 Absolute Lymphs (auto) 1.09 Nucleated RBC % 0 Sodium 135 Potassium 4.2 Chloride 100 Carbon Dioxide 22.8 Anion Gap 11 BUN 18 Creatinine 0.82 Estim Creat Clear Calc 81.15 Est GFR (MDRD) Non-Af 73 BUN/Creatinine Ratio 21.6 H Glucose 286 H Calcium 9.0 Total Bilirubin 0.72 AST 23 ALT 15 Alkaline Phosphatase 75 Total Protein 6.5 Albumin 3.8 Globulin 2.7 Albumin/Globulin Ratio 1.4 b-Hydroxybutyric mmol/L 1.0 Urine Color Straw Urine Clarity Clear Urine pH 6.0 Ur Specific [place] 1.015 Urine Protein 15 H Urine Glucose (UA) 50 H Urine Ketones 15 H Urine Occult Blood Negative Urine Nitrite Negative Urine Bilirubin Negative Urine Urobilinogen Normal Ur Leukocyte Esterase Negative Urine RBC 0 SEEN Urine WBC 0-5 SEEN Ur Squamous Epith Cells 0-5 SEEN Urine Bacteria 0 SEEN Urine Mucus 0 SEEN POC Glucose 275 H Discharge Plan Triage Chief Complaint: Hyperglycemia ED Provider: Serg Solis Dx/Rx/DC Orders Clinical Impression: Hyperglycemia, Essential hypertension, Hyperglycemia due to type 2 diabetes mellitus Instructions: ED Diabetic Hyperglycemia Prescriptions: No Action aspirin 81 mg tablet,delayed release (DR/EC) 81 mg PO DAILY PRN (Reason: heart health) Patient Comments: only takes sometimes cholecalciferol (vitamin D3) 1,250 mcg (50,000 unit) capsule 1,250 mcg PO QWEEK insulin lispro 100 unit/mL solution 6 unit subcut TIDCM Protocol: 4. Sliding Scale Insulin High-Med Dosing Condition: 150-199 mg/dl = 2 units Condition: 200-259 mg/dl = 4 units Condition: 260-324 mg/dl = 6 units Condition: 325-374 mg/dl = 8 units Condition: 375-409 mg/dl = 10 units Condition: 410-449 mg/dl = 11 units Condition: Greater than 449 call physician Protocol Text: - Use for Total Daily Dose of Insulin 56-80 units - Patient who are insulin resistant or septic HIGH MEDIUM DOSING ALGORITHM Patient Comments: INJECT 3 TO 10 UNITS SUBCUTANEOUSLY BEFORE MEALS DIRECTED furosemide 20 mg tablet 10 mg PO DAILY budesonide-formoterol 160-4.5 mcg/actuation HFA aerosol inhaler 2 puff inhalation BID omeprazole magnesium [Prilosec OTC] 20 mg tablet,delayed release (DR/EC) 20 mg PO DAILY mometasone 0.1 % cream 1 applic topical QDAY ramipril 10 MG capsule 10 mg PO BID Patient Comments: TAKE 1 CAPSULE BY MOUTH TWICE DAILY zolpidem 5 mg Tablet 2.5 mg PO QHS PRN (Reason: Insomnia) metoprolol tartrate 50 mg tablet 25 mg PO Q12H Patient Comments: takes half tablet in morning and night amlodipine 10 mg tablet 5 mg PO DAILY Patient Comments: takes half tablet/day (DME) OneTouch Ultra Test Strip MISCELLANEOUS Patient Comments: [NO ORIGINAL SIG] insulin glargine [Lantus Solostar U-100 Insulin] 100 unit/mL (3 mL) insulin pen 24 unit subcut QHS Rx Instructions: 20-26u Primary Care Provider: Octavio Reza Referrals: Octavio Reza MD [Primary Care Provider] - Activity Restrictions/Additional Instructions: Follow-up with your escrow closer tomorrow. Call them with a log of your blood sugars as you have been. Keep a log of your blood sugars. Return with fever, chills, nausea, vomiting, abdominal pain, new or worsening symptoms. Print Language: Gibraltarian Disposition Disposition: Home, Self Care What to do if you have Problems For any increased pain, shortness of breath, bleeding, nausea or vomiting, chestpain, or any unexpected problems, contact your Primary Care Provider. Call [facility] ([phone]) or report to the closest Emergency Room. Call 911 if necessary. 11/29/24 3061 <Electronically signed by Serg Solis MD> Cosigner Signature (if applicable): CC: Dr. Octavio Reza MD ~ Signed [facility] Work Phone: 1(315) 700-910205-01-2025 Evaluation note* Diagnosis Onset Date Resolution Status Admit Date Abnormal stress test acute November 15, 2024 8:05am THAIS (obstructive sleep apnea) acute November 15, 2024 8:05am Essential hypertension chronic Ma y 2024 8:05am Paroxysmal SVT (supraventric ular tachycardia) chronic November 15, 2024 8: 05am [facility] Work Phone: 1(712) 765-364304-23-2025 Note[facility] History of Present illness Narrative* Eliza Gilliland RN - 11/07/2024 10:28 AM EDT Value Based Care Coordination Chart Review Provider Action / FYI: Upon review of patient chart, the patient is excluded from Chronic Disease Management Patient is not a candidate for CDM at this time and placed in the following status: Unable to reach Action taken: No action needed . Eliza Gilliland RN November 07, 2024 10:29 AM documented in this encounterWadsworth-[facility]man [facility]04-22-2025 History of Present illness Narrative* Charis Lucas [facility] - 11/06/2024 9:00 AM EDT Primary Care Pharmacy Visit CC (Reason for Consult): (E10.8) 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) (primary encounter diagnosis) Goal(s): A1c <8% Last Collaborating Provider Visit: 10/31/24 with Renetta Mcgee CNP - Lantus increased to 24 units once daily Attila Kidd is a 79 year old female presenting for follow up visit telephone call. Patient consents to pharmacy collaborative practice agreement. Last Pharmacy Visit: 09/10/24 Interim Events: - 10/15/24 PCP visit HPI: On speaker phone with patient and patient's spouse, Hayden Reports doing well States BGs seem more stable lately States has not had any low blood sugar readings like previously; however, requested to review what to do with a low reading (<70/80s) States BGs have started to improve since recent increase in Lantus dose; still is hesitant and cautious with insulin adjustments due to risk of hypoglycemia Current DM Medications: Lantus 24 units once daily Insulin aspart 5 units with breakfast, 4 units with lunch, 5 units with dinner + SS#1 Diet Denies any recent changes GLYCEMIC CONTROL: Glucometer present at visit: BG log present Hypoglycemia: No SMBGS (Fingersticks) Date Fasting AM Insulin dose 2 hr PP Before Lunch Insulin dose Before Dinner Insulin dose 2 hr PP Bedtime Basal insulin 10/28 123 5 215 6 148 7 275 24 10/29 232 7 233 6 242 7 236 22 10/30 209 7 229 6 143 5 185 22 10/31 228 7 205 6 168 7 11/01 153 6 197 5 228 7 226 24 11/02 186 6 183 5 245 7 239 24 11/03 210 7 135 4 182 6 149 24 11/04 187 6 185 5 218 7 191 190 22 11/05 148 5 153 6 138 5 167 178 24 11/06 152 6 158 AVG 182 192 190 209 Past medical history reviewed. ALLERGIES Allergen Reactions Hctz [Amiloride-Hyd* Other: See Comments Rapid heart beat, nausea, light eaded. (lasted about 12 hours after first dose) Oseltamivir Mental Status Change hallucinations Doxycycline GI Upset Escitalopram Intolerance Fatigued after just a half pill dose. Did not want to take anymore. Lysine Itching Naprosyn [Naproxen] GI Upset Nausea Cefxgxc-Ntw-Sht Red* Myalgia Tylenol-Codeine #3 * Vomiting Ventolin [Albuterol* GI Upset, Vomiting Current Outpatient Medications Medication Sig Dispense Refill blood sugar diagnostic (BLOOD GLUCOSE TEST) test strip Test blood sugar(s) 8 times daily--MedicallyNecessary for labile blood sugars (highs and lows). Dx: Other DM Code E10.8, E11.610 Insulin: Yes 300 strip 11 insulin glargine (LANTUS SOLOSTAR U-100 INSULIN) 100 unit/mL (3 mL) Inject 24 units once daily 27 mL 3 insulin aspart U-100 (NOVOLOG U-100 INSULIN ASPART) 100 unit/mL Inject 5 units with breakfast, 4 units with lunch, 5 units dinner. PLUS SS#1 (1 units for every 50 over 150 PRE MEAL blood sugar) TDD 52 units daily TYPE I DIABETES, insulin dependent, E10.65 20 mL 3 zolpidem (AMBIEN) 5 mg tablet Take 0.5-1 tablets by mouth at bedtime as needed for up to 90 days. Needs larger pill dispensed to cut in half. Patient should start on October 25, 2024. 30 tablet 2 cholecalciferol, Vitamin D3, (VITAMIN D3) 1,250 mcg (50,000 unit) cap capsule Take 1 capsule by mouth one time a week. 12 capsule 4 mometasone (ELOCON) 0.1 % cream Apply to affected area once daily as needed (for scalp psoriasis). For 14 days. Treat for recurrences. Apply at bedtime then wash off in the morning 45 g 1 benzonatate (TESSALON PERLES) 100 mg capsule Take 1 capsule by mouth three times a day as needed for cough. 21 capsule 0 albuterol HFA (PROVENTIL HFA, VENTOLIN HFA) 90 mcg/actuation inhaler Inhale 2 Puffs as instructed four times a day as needed. FOR WHEEZING AND SHORTNESS OF BREATH. 1 Each 1 amLODIPine (NORVASC) 10 mg tablet Take 0.5 tablets by mouth once daily. 90 tablet 3 metoprolol tartrate, short acting, (LOPRESSOR) 50 mg tablet Take 1/2 tablet by mouth twice a day 90tablet 3 ramipril (ALTACE) 10 mg capsule Take 1 capsule by mouth two times a day. 180 capsule 3 SYMBICORT 160-4.5 mcg/actuation inhaler Inhale 2 Puffs as instructed two times a day. 11 g 5 Chlorhexidine Gluconate (PERIDEX) 0.12 % solution Use 15 mL as instructed two times a day. glucagon (GVOKE HYPOPEN 1-PACK) 1 mg/0.2 mL auto-injector Inject 1 mg subcutaneously as needed. 0.2mL 3 aspirin, enteric coated (ASPIRIN, ENTERIC COATED) 81 mg EC tablet Take 1 tablet by mouth two times a day. furosemide (LASIX) 20 mg tablet Take 1 tablet by mouth once daily as needed. 90 tablet 3 flash glucose sensor (FREESTYLE RAISSA 2 SENSOR) kit Apply new sensor every fourteen (14) days to upper arm. (Patient not taking: Reported on 05/23/2024) 6 Each 4 Insulin [place], Disposable, (BD ULTRA-FINE FADY PEN NEEDLE) 32 gauge x Use one needle for each dose. 1-2 /day. 100 Each 11 COMPOUNDED PRESCRIPTION Bi-PAP nose pads. (G47.33) THAIS treated with BiPAP 2 Device 1 ibuprofen 200 mg tablet Take 1-2 tablets by mouth four times daily as needed (Take with food.). --currently only needing 1 pill twice daily to help with cough No current facility-administered medications for this visit. Pill bottles are not present. Adherence: denies missed doses. Rx coverage: Payor: [employer] MEDICARE / Plan: [employer] MEDICARE PPO / Product Type: PPO / Medications affordable? Yes EXAM: There were no vitals taken for this visit. Last 3 Encounter BP Readings: Date: BP: 10/15/2024 140/64 09/26/2024 143/75 07/03/2024 132/73[bp average[ Wt: 131.7 kg (290 lb 6.4 oz) BMI: 42.27 kg/(m^2) LABS: Lab Results Component Value Date HBA1C 7.1 08/20/2024 HBA1C 6.9 05/23/2024 HBA1C 7.7 12/07/2023 HBA1C 7.7 09/01/2023 HBA1C 7.8 09/02/2021 HBA1C 7.4 05/04/2021 HBA1C 8.4 01/06/2021 Glucose 173 10/01/2024 BUN 17 10/01/2024 Creatinine, Whole Blood (iSTAT) 0.69 10/01/2024 Sodium 140 10/01/2024 Potassium 4.4 10/01/2024 Chloride 102 10/01/2024 CO2 29 10/01/2024 Protein, Total 6.5 10/01/2024 Albumin 3.9 10/01/2024 Calcium 9.4 10/01/2024 Alkaline Phosphatase 74 10/01/2024 Bilirubin, Total 0.6 10/01/2024 AST 21 10/01/2024 ALT 21 10/01/2024 Lab Results Component Value Date CHOL 197 08/20/2024 CHOL 175 01/27/2024 CHOL 180 05/04/2021 LDL 120 08/20/2024 LDL 105 05/04/2021 HDL 59 08/20/2024 HDL 62 01/27/2024 HDL 58 05/04/2021 TG 92 08/20/2024 TG 77 01/27/2024 TG 84 05/04/2021 Albumin/Creat Ratio (mg/g) Date Value 10/01/2024 <27 eGFR-All Other Races (.) Date Value 09/11/2021 >60 Estimated Glomerular Filtration Rate (mL/min/1.73m ) Date Value 10/01/2024 88 ASSESSMENT/PLAN: 1. 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) - ICD9: 250.91, ICD10: E10.8 - Controlled based on A1c <8%. SMBGs averaging above goal; however, showing improvement with recently adjusted basal insulin dose last week. Will reassess glycemic control at next visit and titrate insulin doses if necessary. Of note, patient/patient caregiver cautious with insulin adjustments due to fear of hypoglycemia. - Continue current medications - Blood glucose monitoring on a four times daily schedule - Counseled on healthy diet and regular exercise - Discussed diabetic education issues of hypoglycemic/hyperglycemic symptoms - Follow up in 6 weeks, sooner should any other issues arise. Overdue Diabetes Health Maintenance: Health Maintenance - Diabetes Topic Date Due Diabetic Foot Exam 10/27/2021 Follow Up: Next PCP visit: 01/15/25 Next endo visit: 02/06/25 Next PharmD visit: 12/18/24 Charis Lucas, Willie, BCACP Primary Care Clinical Global Sales Manager documented in this encounterWadsworth-[facility]04-22-2025 Note[facility]-16-2025 NoteW[facility]04-16-2025 History of Present illness Narrative* Renetta Mcgee, JOSEFINA.PLATE SLITTER AND INSPECTOR - 10/31/2024 3:18 PM EDT OFFICE VISIT PROGRESS NOTE CC Attila Kidd is a 78 year old who presents today for blood sugar review, insulin dosing adjust. HPI Diagnosed with diabetes mellitus type 1, ~ 2005 Last endocrine OV 02/15/2024 Some elements copied from my note 02/15/2024 which have been updated where appropriate, and all reflect current medical decision making from date of this visit. HISTORY OF PRESENT ILLNESS; Attila Kidd is a very pleasant 78 year old FEMALE is presenting as a new patient to me regardingDM Type 1. Here with today Very frustrated, confused as to what to eat, what is ok, what is not ok Trying to follow keto plan ? Patient and both very confused and overwhelmed with insulin dosing, blood sugar control. She was initially diagnosed with diabetes in 2005. The patient reports the following microvascular complications: peripheral neuropathy and charcot joint. Attila has no know macrovascular complications of diabetes. DM Education No Knows how to carb count No Exercise: limited HPI 02/15/2024 Confirmed again with patient that her labs showed that she is a type I confirmed. 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 Sugars have run mostly between 105-177 with average of 145 Occ overcompensation, but rare HPI 10/31/2024 Sts no change in diet but is getting tired of eating her usual diet I take a bite or two of pizza and my sugar goes way up' Has been incorporating additional types of carbs into her diet Does not use I/C- has not had advanced carb counting with wheelage clerk She wants to eat different foods, but then is confused on know how much insulin to take Recently had elevated blood sugar of 450 and went to the ER We go there quite a bit' 'We called the after hours numbers (for [facility]) went to voice mail and it to hours for someone to callback' No specific exercise program Has been following same nutrition plan for over 6 mos Pt/ bring in blood sugar log which shows 4 days of blood sugars only CURRENT DM MEDS NOVOLOG 5-4-5 plus SS#1 LANTUS 26 units once daily SMBG Type of Monitor: Other Frequency of Monitorin times a day BG Values: Waking sugar 400 am - 123-235 average 200- 235 Pre breakfast 8-9 am 135-160 12-1230 lunch 102-179 Pre dinner 5-6 pm 150-155 Hypoglycemia: no Diet: Low carbohydrate Exercise: limited DM REVIEW OF SYSTEMS Last Eye Exam : yearly Last Podiatry Exam: Cardiorespiratory: negative, denies chest pain, pressure Claudication: no Dyslipidemia: Yes, controlled on medication High Blood Pressure: Yes, controlled on medication CURRENT LABS Latest Ref Rng 12/07/2023 01/27/2024 Glucose 74 - 99 mg/dL 114 (H) BUN 7 - 21 mg/dL 18 Creatinine 0.58 - 0.96 mg/dL 0.77 Sodium 136 - 144 mmol/L 139 Potassium 3.7 - 5.1 mmol/L 4.1 Chloride 98 - 107 mmol/L 102 CO2 22 - 30 mmol/L 28 Anion Gap 8 - 15 mmol/L 9 eGFR >=60 mL/min/1.73m 79 Cholesterol, Total <200 mg/dL 175 Triglyceride <150 mg/dL 77 HDL Cholesterol >39 mg/dL 62 Non HDL Cholesterol <130 mg/dL 113 Fasting Time hrs 10 VLDL Cholesterol <30 mg/dL 15 TC:HDL Ratio <5.10 2.82 LDL Cholesterol <100 mg/dL 98 LDL:HDL Ratio <2.54 1.58 Glutamic Acid Decarboxylas Ab Qualitative Negative Positive ! Glutamic Acid Decarboxylase Ab <=5.0 IU/mL 6.7 (H) Hemoglobin A1C 4.3 - 5.6 % 7.7 (H) Estimated Average Glucose mg/dL 174 Islet Cell Ab <1:4 <1:4 Vitamin D 25 Hydroxy 31.0 - 80.0 ng/mL 71.5 Legend: ! Abnormal (H) High Recent Labs 12/24/21 0718 09/14/22 0724 09/02/23 0530 12/07/23 1133 01/27/24 0712 05/23/24 1238 08/20/24 0718 10/01/24 0934 10/01/24 0941 ALT 15 < > -- -- 12 -- 15 21 -- AST 16 < > -- -- 14 -- 18 21 -- UCRR 212.6 -- 78.0 -- -- -- 24.5 -- 44.9 UALBR 14.6 -- <12.0 -- -- -- <12.0 -- <12.0 UALBCR 7 -- <15 -- -- -- -- -- <27 TPROT 7.0 < > -- -- 6.7 -- 7.1 6.5 -- ALB 3.8* < > -- -- 3.9 -- 4.2 3.9 -- CA 9.2 < > -- -- 9.4 -- 9.8 9.4 -- TBILI 1.3 < > -- -- 0.8 -- 1.0 0.6 -- ALKPHOS 112 < > -- -- 101 -- 83 74 -- GLUC 113* < > -- -- 114* -- 149* 173* -- BUN 18 < > -- -- 18 -- 22* 17 -- CREAT 0.92 < > -- -- 0.77 -- 0.71 0.69 -- NA 138 < > -- -- 139 -- 139 140 -- K 3.9 < > -- -- 4.1 -- 4.1 4.4 -- CHLOR 102 < > -- -- 102 -- 103 102 -- CO2 27 < > -- -- 28 -- 27 29 -- ANION 9 < > -- -- 9 -- 9 9 -- EGFROTH 65 < > -- -- 79 -- 87 88 -- HBA1C 7.9* < > -- 7.7* -- 6.9* 7.1* -- -- < > = values in this interval not displayed. Recent Labs 12/24/21 0718 09/14/22 0724 05/16/23 0725 09/01/23 1247 12/07/23 1133 01/27/24 0712 05/23/24 1238 08/20/24 0718 TG 87 76 -- -- -- 77 -- 92 CHOL 173 186 -- -- -- 175 -- 197 HDL 54 73 -- -- -- 62 -- 59 VLDL 17 15 -- -- -- 15 -- 18 LDL 102* 98 -- -- -- 98 -- 120* FASTTIME 12 10 -- -- -- 10 -- -- TCHDL 3.20 2.55 -- -- -- 2.82 -- 3.34 LDLHDL 1.89 1.34 -- -- -- 1.58 -- 2.03 NONHDL 119 113 -- -- -- 113 -- 138* HBA1C 7.9* 7.3* < > 7.7* 7.7* -- 6.9* 7.1* HBA0 180 163 < > 174 174 -- -- 157 < > = values in this interval not displayed. PAST MEDICAL HISTORY Diagnosis Date Adverse reaction to HMG-CoA reductase inhibitor 06/07/2022 Historical: see allergies Anal or rectal pain proctalgia Ankle fracture, right 03/06/2016 Anxiety state, unspecified Asthma (HCC) Benign neoplasm of colon Charcot foot due [...] 10/12/2006 Rosacea 09/06/2007 Vitamin D deficiency 08/21/2010 PAST SURGICAL HISTORY [...] Social History Tobacco Use Smoking status: Former Current packs/day: 0.00 Average packs/day: 0.5 packs/day for 20.0 years (10.0 ttl pk-yrs) Types: Cigarettes Start date: 10/21/1978 Quit date: 10/21/1998 Years since quittin.0 Smokeless tobacco: Never Vaping Use Vaping status: Never Used Substance Use Topics Alcohol use: Not Currently Drug use: No Current Outpatient Medications Medication Sig insulin aspart U-100 (NOVOLOG U-100 INSULIN ASPART) 100 unit/mL Inject 5 units with breakfast, 4 units with lunch, 5 units dinner. PLUS SS#1 (1 units for every 50 over 150 PRE MEAL blood sugar) TDD 52 units daily TYPE I DIABETES, insulin dependent, E10.65 zolpidem (AMBIEN) 5 mg tablet Take 0.5-1 tablets by mouth at bedtime as needed for up to 90 days. Needs larger pill dispensed to cut in half. Patient should start on October 25, 2024. cholecalciferol, Vitamin D3, (VITAMIN D3) 1,250 mcg (50,000 unit) cap capsule Take 1 capsule by mouth one time a week. mometasone (ELOCON) 0.1 % cream Apply to affected area once daily as needed (for scalp psoriasis). For 14 days. Treat for recurrences. Apply at bedtime then wash off in the morning blood sugar diagnostic (BLOOD GLUCOSE TEST) test strip Test blood sugar(s) 8 times daily--MedicallyNecessary for labile blood sugars (highs and lows). Dx: Other DM Code E10.8, E11.610 Insulin: Yes benzonatate (TESSALON PERLES) 100 mg capsule Take 1 capsule by mouth three times a day as needed for cough. insulin glargine (LANTUS SOLOSTAR U-100 INSULIN) 100 unit/mL (3 mL) Inject 22 units once daily albuterol HFA (PROVENTIL HFA, VENTOLIN HFA) 90 mcg/actuation inhaler Inhale 2 Puffs as instructed four times a day as needed. FOR WHEEZING AND SHORTNESS OF BREATH. amLODIPine (NORVASC) 10 mg tablet Take 0.5 tablets by mouth once daily. metoprolol tartrate, short acting, (LOPRESSOR) 50 mg tablet Take 1/2 tablet by mouth twice a day ramipril (ALTACE) 10 mg capsule Take 1 capsule by mouth two times a day. SYMBICORT 160-4.5 mcg/actuation inhaler Inhale 2 Puffs as instructed two times a day. Chlorhexidine Gluconate (PERIDEX) 0.12 % solution Use 15 mL as instructed two times a day. glucagon (GVOKE HYPOPEN 1-PACK) 1 mg/0.2 mL auto-injector Inject 1 mg subcutaneously as needed. aspirin, enteric coated (ASPIRIN, ENTERIC COATED) 81 mg EC tablet Take 1 tablet by mouth two times a day. furosemide (LASIX) 20 mg tablet Take 1 tablet by mouth once daily as needed. Insulin [place], Disposable, (BD ULTRA-FINE FADY PEN NEEDLE) 32 gauge x Use one needle for each dose. 1-2 /day. COMPOUNDED PRESCRIPTION Bi-PAP nose pads. (G47.33) THAIS treated with BiPAP ibuprofen 200 mg tablet Take 1-2 tablets by mouth four times daily as needed (Take with food.). --currently only needing 1 pill twice daily to help with cough flash glucose sensor (FREESTYLE RAISSA 2 SENSOR) kit Apply new sensor every fourteen (14) days to upper arm. (Patient not taking: Reported on 05/23/2024) No current facility-administered medications for this visit. ALLERGIES Allergen Reactions Hctz [Amiloride-Hyd* Other: See Comments Rapid heart beat, nausea, light eaded. (lasted about 12 hours after first dose) Oseltamivir Mental Status Change hallucinations Doxycycline GI Upset Escitalopram Intolerance Fatigued after just a half pill dose. Did not want to take anymore. Lysine Itching Naprosyn [Naproxen] GI Upset Nausea Uirfekb-Rlh-Alu Red* Myalgia Tylenol-Codeine #3 * Vomiting Ventolin [Albuterol* GI Upset, Vomiting REVIEW OF SYSTEMS - POSITIVES IN BOLD GENERAL:No weight loss, malaise or fevers HEENT:Negative for frequent or significant headaches, No changes in hearing or vision, no nose bleeds or other nasal problems NECK:Negative for lumps, goiter, pain and significant neck swelling RESPIRATORY: Negative for cough, hemoptysis, wheezing, COPD, dyspnea or shortness of breath CARDIOVASCULAR: Negative for chest pain, leg swelling, hypertension, CHF or palpitations PHYSICAL EXAMINATION: Pulse 72 Temp 36.6 C (97.8 F) (Temporal Artery) Wt 131.7 kg (290 lb 6.4 oz) SpO2 96% BMI 42.27 kg/m GENERAL: alert and appropriate, in no distress and well-hydrated, well nourished SKIN: no rash noted HEAD: normocephalic, no abnormality or lesion noted EYES: PERRL NECK: full ROM, no cervical LNs noted ACANTHOSIS: none noted EXTREMITIES: normal NEUROLOGIC: no obvious deficit ASSESSMENT/PLAN (E10.9) Diabetes mellitus type 1, controlled, without complications (HCC) (primary encounter diagnosis) Discussed seeing ENDO WEB APPLICATION DEV SPECIALIST again for advanced carb counting, DM meal planning pt wishes to incorporate addt carbs into her diet but does not know how to take insulin for them INCREASE BASAL TO 24 units once daily. Recommended 26 based on review of BG however, pt's would like to increase slowly. Discussed if 24 units does not bring down pt morning sugars to 140-150, increase to 26, can submit blood sugars to office as needed FOLLOW UP WITH ENDO WEB APPLICATION DEV SPECIALIST as discussed Recommended diet: Low carbohydrate and Low saturated fat, low simple sugar, high fiber diet Exercise minimally 150 minutes per week, increase as tolerated. Adequate hydration - 1/2 body wgt in oz of water daily, unless fluid restriction applies. I instructed the patient to monitor blood sugars 4 times per day If blood sugars are persistently high or low, to call our office. Patient to continue to follow up with her PCP and with other consultants regarding her other medical problems. Plan: COMPREHENSIVE METABOLIC PANEL, LIPID PANEL, NONFASTING, ALBUMIN/CREATININE RATIO, URINE, HEMOGLOBIN A1C, ENDOCRINOLOGY DIETITIAN VISIT (MNT) Renetta Mcgee CNP documented in this encounterWadsworth-[facility]04-14-2025 Telephone encounter Note * Telephone Encounter - Tierney Deluca MA - 10/29/2024 8:26 AM EDT Patients phoned and placed us on speaker phone with Attila. Elijah called as requested by Norma last week with sugar readings from the weekend. Readings vary from 123 to 275. Patient states she is checking her sugars often because she is worried about it being high. I reminded the patient the goal is for it to go back down. Patient reports restricting food intake at this time. Patient and spouse report using extra units of insulin at this time. Patient and spouse agree to see provider sooner and are scheduled this week. Tierney Deluca MA [facility]04-14-2025 Miscellaneous Notes* Telephone Encounter - Tierney Deluca MA - 10/29/2024 8:26 AM EDT Patients phoned and placed us on speaker phone with Rena. Nava called as requested by Norma last week with sugar readings from the weekend. Readings vary from 123 to 275. Patient states she is checking her sugars often because she is worried about it being high. I reminded the patient the goal is for it to go back down. Patient reports restricting food intake at this time. Patient and spouse report using extra units of insulin at this time. Patient and spouse agree to see provider sooner and are scheduled this week. Tierney Deluca MA documented in this encounterWadsworth-[facility]ittman [facility]04-09-2025 Radiology Diagnostic study note [facility] [address] [place], [place] [id number] Venous Duplex Imag/Limited/Uni MR#: [id number] Acct: [id number] Name: ATTILA KIDD Rep #: [id number] : 1945 F 79 From: Marisela Herman MD PCP: Dr. Octavio Reza MD Status: MO E ER Study:Venous Duplex Imag/Limited/Uni Date of Exam: 10/24/24 Exam# [id number] Ordering Dr: Benjamín Stanford DO PROCEDURE: VENOUS DUPLEX IMAG/LIMITED/UNI 10/24/2024 REASON FOR EXAM: Leg pain F 79 y/o TECHNIQUE: Grayscale color flow and doppler analysis of the lower extremity. COMPARISON: None FINDINGS: There is no intraluminal echogenicity to suggest the presence of a deep venous thrombosis. Appropriate respiratory variation, augmentation and venous compression is noted. US/Venous Duplex Imag/Limited/Uni IMPRESSION: No deep venous thrombosis identified in the left lower extremity. Reading Location: [facility] CC: Dr. Octavio Reza MD; Dr. Benjamín Stanford DO ~ 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: Signed [facility]04-05-2025 Telephone encounter Note* Telephone Encounter - Octavio Reza MD - 10/20/2024 5:56 AM EDT Noted Follow up as needed for labile glucose [facility]04-05-2025 Miscellaneous Notes* Telephone Encounter - Octavio Reza MD - 10/20/2024 5:56 AM EDT Noted Follow up as needed for labile glucose * Telephone Encounter - Norma Devlin RN - 10/19/2024 4:34 PM EDT Call returned to Pt and spouse, Elijah. Confirmed Pt name & . Clarification received re: [facility] ED visit today after the 2 track greaser calls. Pt went to the ED for LLE pain, and Pt was told it was bursitis. Pt was discharged home. After ED labs confirmed a serum glucose of 334, urine glucose 1000, and + urine ketone, and it was never addressed, Pt continues to have concern/questions re: her high glucose levels. Pt's spouse reports that when Pt got home from the ED, her glucose was 354 at 1305. She took 8u of Novolog and ate lunch. At 1445, her glucose was 341. At 1545, her glucose was 295 and continues to trend downward. Confirmed Pt's current insulin regimen, and it matches the medication list: -Lantus 22u once daily at bedtime -Humalog 3 units with breakfast, 4 units with lunch, 5 units dinner. PLUS SS#1 (1 units for every 50 over 150 PRE MEAL blood sugar) -No oral antidiabetic medication Instructed Pt and spouse to recheck Pt's blood glucose and administer insulin, as applicable, 15 minutes prior to dinner this evening. They voice understanding. They will also check blood glucose prior to bedtime and/or snack and keep a log to report on Tuesday. Reviewed signs/symptoms to watch for over the weekend and indications to go back to the ED. Pt and spouse voice understanding. [facility] ED documents in scanned documents. Dr. Reza and Renetta Mcgee CNP notified. Norma Devlin RN October 19, 2024 4:54 PM * Telephone Encounter - Cayla Johnston MA - 10/19/2024 3:01 PM EDT Pt is calling with questions about her blood sugars and her medication. Sugar is running high and she is quite concerned. Would like to speak with a nurse in Endocrinology. Today if possible. Cayla Johnston MA documented in this encounterW[facility] Telephone encounter Note * Telephone Encounter - Norma Devlin RN - 10/19/2024 4:34 PM EDT Call returned to Pt and spouse, Elijah. Confirmed Pt name & . Clarification received re: [facility] ED visit today after the 2 track greaser calls. Pt went to the ED for LLE pain, and Pt was told it was bursitis. Pt was discharged home. After ED labs confirmed a serum glucose of 334, urine glucose 1000, and + urine ketone, and it was never addressed, Pt continues to have concern/questions re: her high glucose levels. Pt's spouse reports that when Pt got home from the ED, her glucose was 354 at 1305. She took 8u of Novolog and ate lunch. At 1445, her glucose was 341. At 1545, her glucose was 295 and continues to trend downward. Confirmed Pt's current insulin regimen, and it matches the medication list: -Lantus 22u once daily at bedtime -Humalog 3 units with breakfast, 4 units with lunch, 5 units dinner. PLUS SS#1 (1 units for every 50 over 150 PRE MEAL blood sugar) -No oral antidiabetic medication Instructed Pt and spouse to recheck Pt's blood glucose and administer insulin, as applicable, 15 minutes prior to dinner this evening. They voice understanding. They will also check blood glucose prior to bedtime and/or snack and keep a log to report on Tuesday. Reviewed signs/symptoms to watch for over the weekend and indications to go back to the ED. Pt and spouse voice understanding. [facility] ED documents in scanned documents. Dr. Reza and Renetta Mcgee CNP notified. Norma Devlin RN October 19, 2024 4:54 PM [facility]04-04-2025 Telephone encounter Note* Telephone Encounter - Cayla Johnston MA - 10/19/2024 3:01 PM EDT Pt is calling with questions about her blood sugars and her medication. Sugar is running high and she is quite concerned. Would like to speak with a nurse in Endocrinology. Today if possible. Cayla Johnston MA [facility]04-04-2025 Radiology Diagnostic study note [facility] Imaging Services [address] [place] [address] HIP, UNI W/ Pelvis 2-3 Views MR#: [id number] Acct: [id number] Name: ATTILA KIDD Rep #: [id number] : 1945 F 79 From: Sunday Terrell MD PCP: Dr. Octavio Reza MD Status: RE G ER Study:HIP, UNI W/ Pelvis 2-3 Views Date of Ex am: 10/19/24 Exam# [id number] Ordering Dr: Jodi Sanches DO PROCEDURE: HIP, UNI W/ PELVIS 2-3 VIEWS 10/19/2024 REASON FOR EXAM: Left hip pain. TECHNIQUE: Three views of the left hip COMPARISON: None FINDINGS: Bones: Unremarkable Joints: Mild degree of joint space narrowing. Narrowing of the symphysis pubis. Soft tissues: Calcified phleboliths. Other: RAD/HIP, UNI W/ Pelvis 2-3 Views IMPRESSION: DEGENERATIVE OSTEOARTHROSIS. NO ACUTE FINDINGS. Reading Location: [facility] CC: Dr. Holland Sanches DO; Dr. Octavio Reza MD ~ 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: Signed [facility]04-04-2025 Telephone encounter Note* Telephone Encounter - Darlene Mena RN - 10/19/2024 8:52 AM EDT Patient call in for left leg pain for 2-3 days. Nurse Triage assessment completed with protocol recommending for disposition of see PCP in 4 hours.Patient scheduled to see Lydia today at 11:20. Care advice reviewed with patient, patient stated understanding. Patient advised to contact office or seek evaluation in urgent care or ER if symptoms persist or gets worse. Reason for Disposition [1] Thigh or calf pain AND [2] only 1 side AND [3] present > 1 hour (Exception: Chronic unchanged pain.) Answer Assessment - Initial Assessment Questions 1. ONSET: Patient states that the pain started 2-3 days ago 2. LOCATION: Left Leg from knee to ankle. Patient states that left calf also hurts. 3. PAIN: Patient states that she has a worthing[place] time walk on left leg. 4. WORK OR EXERCISE: Denies 5. CAUSE: Unsure 6. OTHER SYMPTOMS: High Blood Sugars Patient has been putting Unkers Ointment on leg for the pain. Patient reports that after she started putting on ointment yesterday morning her blood sugars elevated into the 300s. Patient is worried that ointment is causing her blood sugars to become elevated. Unkers ointment is for sore muscles and arthritis. Patient states that she feels like something is out of joint. Protocols used: Leg [id number] [facility]04-04-2025 Miscellaneous Notes* Telephone Encounter - Darlene Mena RN - 10/19/2024 8:52 AM EDT Patient call in for left leg pain for 2-3 days. Nurse Triage assessment completed with protocol recommending for disposition of see PCP in 4 hours.Patient scheduled to see Lydia today at 11:20. Care advice reviewed with patient, patient stated understanding. Patient advised to contact office or seek evaluation in urgent care or ER if symptoms persist or gets worse. Reason for Disposition [1] Thigh or calf pain AND [2] only 1 side AND [3] present > 1 hour (Exception: Chronic unchanged pain.) Answer Assessment - Initial Assessment Questions 1. ONSET: Patient states that the pain started 2-3 days ago 2. LOCATION: Left Leg from knee to ankle. Patient states that left calf also hurts. 3. PAIN: Patient states that she has a wor[place] time walk on left leg. 4. WORK OR EXERCISE: Denies 5. CAUSE: Unsure 6. OTHER SYMPTOMS: High Blood Sugars Patient has been putting Unkers Ointment on leg for the pain. Patient reports that after she started putting on ointment yesterday morning her blood sugars elevated into the 300s. Patient is worried that ointment is causing her blood sugars to become elevated. Unkers ointment is for sore muscles and arthritis. Patient states that she feels like something is out of joint. Protocols used: Leg [id number] * Telephone Encounter - Asmita Tapia RN - 10/19/2024 8:05 AM EDT Triage protocol advised: Home Care/PCP to advise. Informed pt that PCP office would call her back with advise. Pt aware to proceed to ER for any red flag sx's as discussed. Patient calling for advise. Reports she took her Lantus 22 units last night and woke up this morning and her fasting blood sugar was 282. She then took her Novolog this morning approx 5-6am, which was a total of 6 units. She has checked her blood sugar again and it has increased to 336 as of 7:30am. She is not sure what to do. She is asymptomatic. Reports very good water intake. No sx's of infection. Pt was just seen by Dr. Reza last week. Reason for Disposition [1] Blood glucose > 300 mg/dL (16.7 mmol/L) AND [2] uses insulin (e.g., insulin- dependent, all people with type 1 diabetes) Answer Assessment - Initial Assessment Questions 1. BLOOD GLUCOSE:This morning, at last check, 8am = 336 2. ONSET: last night 3. USUAL RANGE: 100's 4. KETONES: (not checked) 5. TYPE 1 or 2: 1 6. INSULIN: yes -Lantus 22 units every bedtime -Novolog/Aspart :Inject 3 units with breakfast, 4 units with lunch, 5 units dinner. PLUS SS#1 (1 units for every 50 over 150 PRE MEAL blood sugar) TDD 50 units daily 7. DIABETES PILLS: 8. OTHER SYMPTOMS: No fever, frequent urination, difficulty breathing, dizziness, weakness, or vomiting 9. : no Protocols used: Diabetes - High Blood Pvnbe-ICVAL-GL documented in this encounterWadsworth-[facility]04-[facility] Telephone encounter Note * Telephone Encounter - Asmita Tapia RN - 10/19/2024 8:05 AM EDT Triage protocol advised: Home Care/PCP to advise. Informed pt that PCP office would call her back with advise. Pt aware to proceed to ER for any red flag sx's as discussed. Patient calling for advise. Reports she took her Lantus 22 units last night and woke up this morning and her fasting blood sugar was 282. She then took her Novolog this morning approx 5-6am, which was a total of 6 units. She has checked her blood sugar again and it has increased to 336 as of 7:30am. She is not sure what to do. She is asymptomatic. Reports very good water intake. No sx's of infection. Pt was just seen by Dr. Reza last week. Reason for Disposition [1] Blood glucose > 300 mg/dL (16.7 mmol/L) AND [2] uses insulin (e.g., insulin- dependent, all people with type 1 diabetes) Answer Assessment - Initial Assessment Questions 1. BLOOD GLUCOSE:This morning, at last check, 8am = 336 2. ONSET: last night 3. USUAL RANGE: 100's 4. KETONES: (not checked) 5. TYPE 1 or 2: 1 6. INSULIN: yes -Lantus 22 units every bedtime -Novolog/Aspart :Inject 3 units with breakfast, 4 units with lunch, 5 units dinner. PLUS SS#1 (1 units for every 50 over 150 PRE MEAL blood sugar) TDD 50 units daily 7. DIABETES PILLS: 8. OTHER SYMPTOMS: No fever, frequent urination, difficulty breathing, dizziness, weakness, or vomiting 9. : no Protocols used: Diabetes - High Blood [id number]-EWNGN-II [facility]03-31-2025 Instructions* Patient Instructions* Octavio Reza MD - 10/15/2024 2:44 PM EDT - Increase Miralax to 2 capfuls per dose as needed; you can take up to 5 capfuls per day if necessary. - Continue taking Lantus 22 units at night. - Adjust short-acting insulin (NovoLog) as needed; you can reduce the dose by 1 unit in the eveningif experiencing low blood sugar. - Dispose of any old or unused insulin vials, including the N insulin that you have not needed for years, to avoid confusion. - Monitor blood sugar levels regularly and document any changes in insulin dosage and blood sugar readings. - Scheduled follow-up call with Tanesha in 2 weeks. - Next appointment with Marcela on November 28. - Lab tests for Vitamin D and A1c scheduled for January; complete these tests in mid-December. documented in this encounterWadsworth-[facility]03-[facility] History of Present illness Narrative* Octavio Reza MD - 10/15/2024 2:12 PM EDT This note was created using FotoIN Mobileter. Subjective Attila Kidd is a 79 year old female. Patient presents with: 4 month f/up SUBJECTIVE: Attila Kidd is a 79 year old year old lady here today for 4 month follow up appointment for review of medical conditions. Attila is a 79-year-old female with a history of type 1 diabetes mellitus, presenting for follow-up on glycemic control and management of constipation. Attila is currently taking Lantus 22 units at bedtime and NovoLog with meals (3 units with breakfast,4 units with lunch, and 5 units with dinner) using a sliding scale. She reports occasional hypoglycemic episodes, particularly at night, with blood glucose levels dropping as low as 66 mg/dL. To mitigate this, she has been reducing her evening NovoLog dose by 1 unit and consuming 1-2 peanut butter crackers at bedtime. Morning blood glucose levels are generally stable, though occasionally elevated. Recent lab results from 10/01 show a blood glucose level of 173 mg/dL, with an A1c of 7.1% from August. She denies frequent hypoglycemic episodes and reports adequate hydration, consuming 6-8 bottles of water daily. Attila also reports persistent constipation despite taking Miralax once daily. She inquires about increasing the dosage to twice daily. She consumes salads regularly but is uncertain about her overall dietary fiber intake. She denies any issues with her current medication regimen, including Zolpidem and vitamin D supplementation. PAST MEDICAL HISTORY Diagnosis Date Adverse reaction [...] 10/12/2006 Rosacea 09/06/2007 Vitamin D deficiency 08/21/2010 Current Outpatient Medications Medication Sig insulin glargine (LANTUS SOLOSTAR U-100 INSULIN) 100 unit/mL (3 mL) Inject 22 units once daily albuterol HFA (PROVENTIL HFA, VENTOLIN HFA) 90 mcg/actuation inhaler Inhale 2 Puffs as instructed four times a day as needed. FOR WHEEZING AND SHORTNESS OF BREATH. amLODIPine (NORVASC) 10 mg tablet Take 0.5 tablets by mouth once daily. metoprolol tartrate, short acting, (LOPRESSOR) 50 mg tablet Take 1/2 tablet by mouth twice a day ramipril (ALTACE) 10 mg capsule Take 1 capsule by mouth two times a day. SYMBICORT 160-4.5 mcg/actuation inhaler Inhale 2 Puffs as instructed two times a day. Chlorhexidine Gluconate (PERIDEX) 0.12 % solution Use 15 mL as instructed two times a day. insulin aspart U-100 (NOVOLOG U-100 INSULIN ASPART) 100 unit/mL Inject 3 units with breakfast, 4 units with lunch, 5 units dinner. PLUS SS#1 (1 units for every 50 over 150 PRE MEAL blood sugar) TDD 50 units daily TYPE I DIABETES, insulin dependent, E10.65 glucagon (GVOKE HYPOPEN 1-PACK) 1 mg/0.2 mL auto-injector Inject 1 mg subcutaneously as needed. cholecalciferol, Vitamin D3, (VITAMIN D3) 1,250 mcg (50,000 unit) cap capsule Take 1 capsule by mouth one time a week. aspirin, enteric coated (ASPIRIN, ENTERIC COATED) 81 mg EC tablet Take 1 tablet by mouth two times a day. furosemide (LASIX) 20 mg tablet Take 1 tablet by mouth once daily as needed. mometasone (ELOCON) 0.1 % cream Apply to affected area once daily as needed (for scalp psoriasis). For 14 days. Treat for recurrences. Apply at bedtime then wash off in the morning Insulin [place], Disposable, (BD ULTRA-FINE FADY PEN NEEDLE) 32 gauge x 5/32 Use one needle for each dose. 1-2 /day. COMPOUNDED PRESCRIPTION Bi-PAP nose pads. (G47.33) THAIS treated with BiPAP ibuprofen 200 mg tablet Take 1-2 tablets by mouth four times daily as needed (Take with food.). --currently only needing 1 pill twice daily to help with cough blood sugar diagnostic (BLOOD GLUCOSE TEST) test strip Test blood sugar(s) 8 times daily--MedicallyNecessary for labile blood sugars (highs and lows). Dx: Other DM Code E10.8, E11.610 Insulin: Yes benzonatate (TESSALON PERLES) 100 mg capsule Take 1 capsule by mouth three times a day as needed for cough. (Patient not taking: Reported on 09/26/2024) zolpidem (AMBIEN) 5 mg tablet Take 0.5-1 tablets by mouth at bedtime as needed for up to 90 days. Needs larger pill dispensed to cut in half. Patient should start on July 09, 2024. flash glucose sensor (FREESTYLE RAISSA 2 SENSOR) kit Apply new sensor every fourteen (14) days to upper arm. (Patient not taking: Reported on 05/23/2024) No current facility-administered medications for this visit. Review of Systems Objective BP 140/64 Pulse 64 Resp 14 Wt 131.5 kg (289 lb 14.5 oz) BMI 42.20 kg/m Last 5 Encounter Wt Readings: Date: Wt: 10/15/2024 131.5 kg (289 lb 14.5 oz) 09/26/2024 134.1 kg (295 lb 10.2 oz) 07/03/2024 137.8 kg (303 lb 12.7 oz) 06/11/2024 139.8 kg (308 lb 3.3 oz) 05/23/2024 140.2 kg (309 lb) No waist measurement recorded Estimated body mass index is 42.2 kg/m as calculated from the following: Height as of 05/23/24: 176.5 cm (5' 9.5). Weight as of this encounter: 131.5 kg (289 lb 14.5 oz). Last 5 Encounter BP Readings: Date: BP: 10/15/2024 140/64 09/26/2024 143/75 07/03/2024 132/73[bp average[ 06/11/2024 124/78 05/23/2024 138/72 Physical Exam Constitutional: Appearance: Normal appearance. HENT: Head: Normocephalic. Eyes: Conjunctiva/sclera: Conjunctivae normal. Cardiovascular: Rate and Rhythm: Normal rate and regular rhythm. Heart sounds: Normal heart sounds. Comments: Swelling controlled ; no tight swelling. Wears leg braces as usual. Pulmonary: Effort: Pulmonary effort is normal. Breath sounds: Normal breath sounds. Skin: General: Skin is warm and dry. Neurological: General: No focal deficit present. Mental Status: She is alert and oriented to person, place, and time. Psychiatric: Mood and Affect: Mood normal. Behavior: Behavior normal. Thought Content: Thought content normal. Judgment: Judgment normal. Latest Ref Rng 12/07/2023 01/27/2024 05/23/2024 08/20/2024 10/01/2024 WBC 3.70 - 11.00 k/uL 5.29 6.04 RBC 3.90 - 5.20 m/uL 4.29 4.34 Hemoglobin 11.5 - 15.5 g/dL 12.7 12.9 Hematocrit 36.0 - 46.0 % 38.3 39.1 MCV 80.0 - 100.0 fL 89.3 90.1 MCH 26.0 - 34.0 pg 29.6 29.7 MCHC 30.5 - 36.0 g/dL 33.2 33.0 RDW-CV 11.5 - 15.0 % 12.6 12.9 Platelet Count 150 - 400 k/uL 195 206 MPV 9.0 - 12.7 fL 12.5 11.9 Neut% % 71.6 Abs Neut (ANC) 1.45 - 7.50 k/uL 3.79 Lymph% % 15.3 Abs Lymph 1.00 - 4.00 k/uL 0.81 (L) Titus% % 7.6 Abs Titus <0.87 k/uL 0.40 Eosin% % 4.9 Abs Eosin <0.46 k/uL 0.26 Baso% % 0.4 Abs Baso <0.11 k/uL <0.03 Immature Gran % % 0.2 IMMATURE GRANS (ABS) <0.10 k/uL <0.03 NRBC /100 WBC 0.0 Absolute nRBC <0.01 k/uL <0.01 <0.01 DTYPE Auto Protein, Total 6.3 - 8.0 g/dL 6.7 7.1 6.5 Albumin 3.9 - 4.9 g/dL 3.9 4.2 3.9 Calcium 8.5 - 10.2 mg/dL 9.4 9.8 9.4 Bilirubin, Total 0.2 - 1.3 mg/dL 0.8 1.0 0.6 Alkaline Phosphatase 34 - 123 U/L 101 83 74 AST 13 - 35 U/L 14 18 21 ALT 7 - 38 U/L 12 15 21 Glucose 74 - 99 mg/dL 114 (H) 149 (H) 173 (H) BUN 7 - 21 mg/dL 18 22 (H) 17 Creatinine 0.58 - 0.96 mg/dL 0.77 0.71 0.69 Sodium 136 - 144 mmol/L 139 139 140 Potassium 3.7 - 5.1 mmol/L 4.1 4.1 4.4 Chloride 98 - 107 mmol/L 102 103 102 CO2 22 - 30 mmol/L 28 27 29 Anion Gap 8 - 15 mmol/L 9 9 9 eGFR >=60 mL/min/1.73m 79 87 88 Cholesterol, Total <200 mg/dL 175 Triglyceride <150 mg/dL 77 HDL Cholesterol >39 mg/dL 62 Non HDL Cholesterol <130 mg/dL 113 Fasting Time hrs 10 VLDL Cholesterol <30 mg/dL 15 TC:HDL Ratio <5.10 2.82 LDL Cholesterol <100 mg/dL 98 LDL:HDL Ratio <2.54 1.58 Total Cholesterol, Nonfasting <200 mg/dL 197 Triglycerides, Nonfasting <150 mg/dL 92 HDL Cholesterol, Nonfasting >39 mg/dL 59 LDL Cholesterol, Nonfasting <100 mg/dL 120 (H) Non HDL Cholesterol, Nonfasting <130 mg/dL 138 (H) VLDL Cholesterol, Nonfasting <30 mg/dL 18 Total Chol/HDL Ratio, Nonfasting <5.10 mg/dL 3.34 LDL/HDL Ratio, Nonfasting <2.54 mg/dL 2.03 Creatinine, Ur Random (UCRR) 20.0 - 300.0 mg/dL 44.9 Albumin, Urine Random mg/L <12.0 Albumin/Creat Ratio <30 mg/g <27 Glutamic Acid Decarboxylas Ab Qualitative Negative Positive ! Glutamic Acid Decarboxylase Ab <=5.0 IU/mL 6.7 (H) Hemoglobin A1C 4.3 - 5.6 % 7.7 (H) 7.1 (H) Estimated Average Glucose mg/dL 174 157 Islet Cell Ab <1:4 <1:4 Vitamin D 25 Hydroxy 31.0 - 80.0 ng/mL 71.5 Hemoglobin A1C (POCT) 4.3 - 5.6 % 6.9 ! Legend: ! 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 - Current insulin regimen includes NovoLog (short-acting) and Lantus (long- acting) 22 units at bedtime. - Discussed importance of administering short-acting insulin prior to meals. - Advised against consuming additional carbohydrates at bedtime to prevent nocturnal hypoglycemia; recommended reducing Lantus dose instead. - Recent lab results: Blood glucose 173 mg/dL, A1c 7.1%. - Ordered refills for NovoLog to ensure adequate supply. - Scheduled follow-up appointments with Tanesha on November 06 and Marcela on November 28. - Ordered A1c and Vitamin D level tests to be conducted in mid-December, prior to January appointment. # Primary insomnia (F51.01) - Refill for Zolpidem sent to [facility], to be picked up on October 25. # Anxiety state (F41.1) - Discussed concerns about nocturnal hypoglycemia and sepsis. - Provided reassurance and education on signs and symptoms of sepsis. - Recommended dietary adjustments to prevent hypoglycemia. # Vitamin D deficiency (E55.9) - Continue Vitamin D 50,000 IU once weekly. - Ordered Vitamin D level test to be conducted in mid-December, prior to January appointment. # Constipation, unspecified constipation type (K59.00) - Current treatment with Miralax 1 capful daily; advised increasing to 2 capfuls daily as needed. - Discussed dietary modifications to include a variety of fibers from fruits, vegetables, and grains. - Consider adding Metamucil if stools become too loose. # Psoriasis of scalp (L40.9) # Seborrheic dermatitis (L21.9) Asked for refills--uses for area behind ears for mometasone. Refill given. Octavio Reza MD documented in this encounterWadsworth[facility]03-[facility] Telephone encounter Note * Telephone Encounter - Ritika Santos LPN - 10/04/2024 4:08 PM EDT Patient notified of providers message and verbalized understanding. [facility]03-20-2025 Miscellaneous Notes* Telephone Encounter - Ritika Santos LPN - 10/04/2024 4:08 PM EDT Patient notified of providers message and verbalized understanding. * Telephone Encounter - Lydia Grande APRN.[employer] - 10/04/2024 3:46 PM EDT Take a Dulcolax and another dose of MiraLAX this evening. Try walking this evening as able. Recommend she drink plenty of fluids. If no results tonight then would repeat the medications in the morning. Call and let us know how she is doing tomorrow. * Telephone Encounter - Cesar Brush LPN - 10/04/2024 2:42 PM EDT Patient calling with constipation issue, last bowel movement was 4 days ago. She is taking Miralax once daily and drinking 6 bottles of water daily. She is not eating prunes or apples due to her blood sugar, but is eating salads. She is passing flatus at times, but no urge for BM. Aware PCP is out of the office today. Patient said she has Dulcolax tablets at home but has never tried them. Patientuses [facility] for her pharmacy if needed. Patient asking what else can she do to help with her bowels? Please advise documented in this encounterWadsworth[facility]03-[facility]25 Telephone encounter Note * Telephone Encounter - Lydia Grande APRN.CNS - 10/04/2024 3:46 PM EDT Take a Dulcolax and another dose of MiraLAX this evening. Try walking this evening as able. Recommend she drink plenty of fluids. If no results tonight then would repeat the medications in the morning. Call and let us know how she is doing tomorrow. [facility]03-20-2025 Telephone encounter Note* Telephone Encounter - Cesar Brush LPN - 10/04/2024 2:42 PM EDT Patient calling with constipation issue, last bowel movement was 4 days ago. She is taking Miralax once daily and drinking 6 bottles of water daily. She is not eating prunes or apples due to her blood sugar, but is eating salads. She is passing flatus at times, but no urge for BM. Aware PCP is out of the office today. Patient said she has Dulcolax tablets at home but has never tried them. Patientuses [facility] for her pharmacy if needed. Patient asking what else can she do to help with her bowels? Please advise [facility]03-17-2025 Telephone encounter Note* Telephone Encounter - Bianca Waldrop MA - 10/01/2024 2:47 PM EDT Patient informed and verbalized understanding. Will try the warm compresses. Bianca Waldrop MA [facility]03-17-2025 Miscellaneous Notes* Telephone Encounter - Bianca Waldrop MA - 10/01/2024 2:47 PM EDT Patient informed and verbalized understanding. Will try the warm compresses. Bianca Waldrop MA * Telephone Encounter - Octavio Reza MD - 09/27/2024 7:28 PM EDT Patient said the cream had been helping with her neck pain and was not causing any side effects before, so unlikely that it was causing headache or nausea now. Of course, she can avoid using it for now. Neck and back pain could be causing headache and nausea. Also anxiety can cause these symptoms to worsen. Has she tried a warm compress to the back of her head,neck or forehead to see if that helps? * Telephone Encounter - Cesar Brush LPN - 09/27/2024 2:29 PM EDT Patient calling she was having pain back on neck and put on some Argentine Dream, Arthritis pain relief cream at 11 am today. Now she has got herself worked up has headache and nausea. She washed off that cream, thinking it was the cause of her headache and nausea issue. Nurse googled cream to get ingredients since her and her could not read the label too small print, contains : Water, Emu Oil, Butylene Glycol, Methylisothiazolinone, Sodium Polyacrylate, Potassium Sorbate, Glycerin, Ethylhexyl Stearate, Glucosamine Sulfate, Methyl Salicylate and Menthol. She had washed the cream off about 1 pm. She is not sure if that was the cause of her headache and nausea, she is not sure about using any of it anymore? Patient said she uses Mometasone cream on her area behind her ears at night rx from PCP. She washesit off in the morning each time she uses it. Patient wanted message sent to PCP about this. Please advise documented in this encounterW[facility]* Telephone Encounter - Octavio Reza MD - 09/27/2024 7:28 PM EDT Patient said the cream had been helping with her neck pain and was not causing any side effects before, so unlikely that it was causing headache or nausea now. Of course, she can avoid using it for now. Neck and back pain could be causing headache and nausea. Also anxiety can cause these symptoms to worsen. Has she tried a warm compress to the back of her head,neck or forehead to see if that helps? [facility]03-13-2025 Telephone encounter Note* Telephone Encounter - Cesar Brush LPN - 09/27/2024 2:29 PM EDT Patient calling she was having pain back on neck and put on some Argentine Dream, Arthritis pain relief cream at 11 am today. Now she has got herself worked up has headache and nausea. She washed off that cream, thinking it was the cause of her headache and nausea issue. Nurse googled cream to get ingredients since her and her could not read the label too small print, contains : Water, Emu Oil, Butylene Glycol, Methylisothiazolinone, Sodium Polyacrylate, Potassium Sorbate, Glycerin, Ethylhexyl Stearate, Glucosamine Sulfate, Methyl Salicylate and Menthol. She had washed the cream off about 1 pm. She is not sure if that was the cause of her headache and nausea, she is not sure about using any of it anymore? Patient said she uses Mometasone cream on her area behind her ears at night rx from PCP. She washesit off in the morning each time she uses it. Patient wanted message sent to PCP about this. Please advise [facility]03-12-2025 Instructions* Patient Instructions* Octavio Reza MD - 09/26/2024 11:21 AM EDT - Take stool softeners as needed to prevent constipation. - Use Miralax as needed to maintain regular bowel movements; mix the recommended dose with water oryour preferred drink. - Monitor your blood sugar levels regularly and record them. - Follow your current insulin regimen, including the sliding scale adjustments. - If your blood sugar is 70 before a meal, start your meal with a carbohydrate and take your usual insulin dose. - Keep glucose tablets, candies, or 4-ounce juice boxes on hand to treat low blood sugar levels. - Maintain a balanced diet with portion control as advised by your escrow closer. - Continue your exercise routine, including riding your stationary bike. - Drink plenty of water daily. - Follow up with your escrow closer and pharmacist as scheduled. - Next appointment on the of this month for routine follow-up and lab tests. documented in this encounterWadsworth[facility]03-[facility] History of Present illness Narrative* Octavio Reza MD - 09/26/2024 10:00 AM EDT Images from the original note were not included. This note was created using DAQRIriter. Subjective Attila Kidd is a 79 year old female. No chief complaint on file. SUBJECTIVE: Attila snyder is a 79 year old year old lady here today for ER follow up appointment for review of medical conditions. Attila Kidd is a 79-year-old female with a history of type 1 diabetes mellitus, presenting for follow-up after three recent ER visits for diarrhea and blood glucose fluctuations. Attila reports that her diarrhea has resolved. She was seen in the ER on September 20 for diarrhea, on September 21 for hyperglycemia (blood glucose in the 400s) and diarrhea, and on September 23 for persistentdiarrhea and hypoglycemia (blood glucose of 76 mg/dL). During the September 21 visit, she received 17 units of insulin IV to manage hyperglycemia and was rehydrated. On September 23, she was advised to take Imodium every 5-6 hours, which she did, resulting in a normal bowel movement this morning, though she notes the stool was yellow in color. She denies receiving additional IV fluids or a CT scan during the September 23 visit. Attila also reports a recent episode of constipation lasting 2-3 days, which is unusual for her as she typically has daily bowel movements. She took Ex-Lax to relieve the constipation, which she describes as a bad mistake leading to diarrhea. She inquires about the use of stool softeners and other alternatives like Miralax or Metamucil to prevent future constipation. Attila notes that her blood glucose levels have stabilized. She is under the care of an escrow closer and a PharmD, and has been following dietary recommendations, including smaller portions, which has led to weight loss. Her current weight is 295 lbs 10.2 oz, down from 344 lbs in October of the previous year. She reports eating a healthy diet and engaging in regular exercise, including riding a stationary bike for about 2 miles a day. She denies current abdominal pain. PAST MEDICAL HISTORY Diagnosis Date Adverse reaction [...] 10/12/2006 Rosacea 09/06/2007 Vitamin D deficiency 08/21/2010 Current Outpatient Medications Medication Sig blood sugar diagnostic (BLOOD GLUCOSE TEST) test strip Test blood sugar(s) 8 times daily--MedicallyNecessary for labile blood sugars (highs and lows). Dx: Other DM Code E10.8, E11.610 Insulin: Yes benzonatate (TESSALON PERLES) 100 mg capsule Take 1 capsule by mouth three times a day as needed for cough. insulin glargine (LANTUS SOLOSTAR U-100 INSULIN) 100 unit/mL (3 mL) Inject 22 units once daily zolpidem (AMBIEN) 5 mg tablet Take 0.5-1 tablets by mouth at bedtime as needed for up to 90 days. Needs larger pill dispensed to cut in half. Patient should start on July 09, 2024. albuterol HFA (PROVENTIL HFA, VENTOLIN HFA) 90 mcg/actuation inhaler Inhale 2 Puffs as instructed four times a day as needed. FOR WHEEZING AND SHORTNESS OF BREATH. amLODIPine (NORVASC) 10 mg tablet Take 0.5 tablets by mouth once daily. metoprolol tartrate, short acting, (LOPRESSOR) 50 mg tablet Take 1/2 tablet by mouth twice a day ramipril (ALTACE) 10 mg capsule Take 1 capsule by mouth two times a day. SYMBICORT 160-4.5 mcg/actuation inhaler Inhale 2 Puffs as instructed two times a day. Chlorhexidine Gluconate (PERIDEX) 0.12 % solution Use 15 mL as instructed two times a day. insulin aspart U-100 (NOVOLOG U-100 INSULIN ASPART) 100 unit/mL Inject 3 units with breakfast, 4 units with lunch, 5 units dinner. PLUS SS#1 (1 units for every 50 over 150 PRE MEAL blood sugar) TDD 50 units daily TYPE I DIABETES, insulin dependent, E10.65 glucagon (GVOKE HYPOPEN 1-PACK) 1 mg/0.2 mL auto-injector Inject 1 mg subcutaneously as needed. cholecalciferol, Vitamin D3, (VITAMIN D3) 1,250 mcg (50,000 unit) cap capsule Take 1 capsule by mouth one time a week. aspirin, enteric coated (ASPIRIN, ENTERIC COATED) 81 mg EC tablet Take 1 tablet by mouth two times a day. (Patient taking differently: Take 81 mg by mouth once daily.) furosemide (LASIX) 20 mg tablet Take 1 tablet by mouth once daily as needed. (Patient taking differently: Take 20 mg by mouth once daily as needed (edema).) mometasone (ELOCON) 0.1 % cream Apply to affected area once daily as needed (for scalp psoriasis). For 14 days. Treat for recurrences. Apply at bedtime then wash off in the morning flash glucose sensor (FREESTYLE RAISSA 2 SENSOR) kit Apply new sensor every fourteen (14) days to upper arm. (Patient not taking: Reported on 05/23/2024) Insulin [place], Disposable, (BD ULTRA-FINE FADY PEN NEEDLE) 32 gauge x 5/32 Use one needle for each dose. 1-2 /day. COMPOUNDED PRESCRIPTION Bi-PAP nose pads. (G47.33) THAIS treated with BiPAP ibuprofen 200 mg tablet Take 1-2 tablets by mouth four times daily as needed (Take with food.). --currently only needing 1 pill twice daily to help with cough (Patient taking differently: Take 200-400 mg by mouth four times a day as needed (Take with food.).) No current facility-administered medications for this visit. Review of Systems Objective BP 143/75 Pulse (!) 55 Resp 16 Wt 134.1 kg (295 lb 10.2 oz) BMI 43.03 kg/m Last 5 Encounter Wt Readings: Date: Wt: 09/26/2024 134.1 kg (295 lb 10.2 oz) 07/03/2024 137.8 kg (303 lb 12.7 oz) 06/11/2024 139.8 kg (308 lb 3.3 oz) 05/23/2024 140.2 kg (309 lb) 05/07/2024 141.2 kg (311 lb 4.6 oz) No waist measurement recorded Estimated body mass index is 43.03 kg/m as calculated from the following: Height as of 05/23/24: 176.5 cm (5' 9.5). Weight as of this encounter: 134.1 kg (295 lb 10.2 oz). Last 5 Encounter BP Readings: Date: BP: 09/26/2024 143/75 07/03/2024 132/73[bp average[ 06/11/2024 124/78 05/23/2024 138/72 05/07/2024 140/72 Physical Exam Constitutional: Appearance: Normal appearance. HENT: Head: Normocephalic. Eyes: Conjunctiva/sclera: Conjunctivae normal. Cardiovascular: Rate and Rhythm: Normal rate and regular rhythm. Heart sounds: Normal heart sounds. Pulmonary: Effort: Pulmonary effort is normal. Breath sounds: Normal breath sounds. Musculoskeletal: Right lower leg: Edema present. Left lower leg: Edema present. Comments: Swelling controlled with compression hose and braces. Skin: General: Skin is warm and dry. Neurological: General: No focal deficit present. Mental Status: She is alert and oriented to person, place, and time. Psychiatric: Mood and Affect: Mood normal. Behavior: Behavior normal. Thought Content: Thought content normal. Judgment: Judgment normal. Labs: (09/23) - CBC: Hemoglobin: 11.9 g/dL - Serum glucose: 76 mg/dL (09/21) - Serum glucose: 400 mg/dL (January) - CBC: Hemoglobin: 12.7 g/dL Assessment and Plan # Acute diarrhea (R19.7) - Resolved after following ER instructions to take Imodium A-D every 5-6 hours. - Educated on the use of stool softeners, Miralax, and Metamucil to prevent future constipation. - Advised to avoid Ex-Lax due to previous adverse reaction. - Monitor bowel movements and avoid waiting more than 2 days without a bowel movement before takingaction. 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 - Educated on managing low blood sugar levels, including starting meals with carbohydrates and adjusting insulin doses as needed. - Provided educational materials on portion control and managing low blood sugar. - Follow-up with endocrinology team, including Marcela Kumar NP, and Armando SaucedoD. # Anemia, unspecified type (D64.9) - Recent hemoglobin level was 11.9 g/dL on September 23, down from 12.7 g/dL in January of last year. - Suspected dilutional effect from IV fluids administered during recent ER visits. - Ordered CBC to be done at the next follow-up on October 15 to monitor hemoglobin levels. # Essential hypertension (I10) - Blood pressure monitoring deferred to next follow-up on October 15. # Morbid (severe) obesity due to excess calories (HCC) (E66.01) - Gradual weight loss observed; current weight is 295 lbs 10.2 oz, down from 344 lbs in October of last year. - Continue portion control and dietary modifications as advised by endocrinology team. - Encouraged regular physical activity, including stationary biking. - Follow-up on October 15 to assess progress. Octavio Reza MD documented in this encounterW[facility]03[facility] Telephone encounter Note* Telephone Encounter - Jeannine Mcelroy MA - 09/25/2024 2:44 PM EDT Denial states that [employer] brand not covered but onetouch ultra is. Pharmacy dispense report shows been getting onetouch ultra monthly. Called [employer] and ran for onetouch ultra and covered went through as paid claim. Discarded denial. Jeannine Mcelroy MA [facility]03-11-2025 Miscellaneous Notes* Telephone Encounter - Jeannine Mcelroy MA - 09/25/2024 2:44 PM EDT Denial states that kroger brand not covered but onetouch ultra is. Pharmacy dispense report shows been getting onetouch ultra monthly. Called [employer] and ran for onetouch ultra and covered went through as paid claim. Discarded denial. Jeannine Mcelroy MA * Telephone Encounter - Vibha Peña LPN - 09/21/2024 1:44 PM EST Denial rec'd for kroger test strips. Approval rec'd for one touch ultra strips * Telephone Encounter - Vibha Peña LPN - 09/20/2024 3:55 PM EST MORE QUESTIONS REC'D TO COMPLETE. THIS WAS DONE AND FAXED BACK. * Telephone Encounter - Vibha Peña LPN - 09/20/2024 2:55 PM EST Was able to complete electronic PA for testing 8 times daily * Telephone Encounter - Octavio Reza MD - 08/24/2024 8:58 AM EST Reviewed with spouse. Sent pended RX. Discussed that gives logs to Marcela and she works with [employer] routinely. Discussed doing log for a month. Not sure if will need PA every month or just till deductible met. * Telephone Encounter - Jeannine Mcelroy MA - 08/20/2024 4:24 PM EST Pharmacy dispense shows 200 test strips dispensed in July. Called [facility] and they advised PA was valid till 09/25/2024. Called spouse who advised rx for 200 strips was $230. Called fidel chavez into this if going through with insurance or if spouse paid out pocket. Fidel advised is covered but until deductible met has to pay for strips. Spouse was called again and aware Leave TE so we can re-complete next month Jeannine Mcelroy MA * Telephone Encounter - Rakel Agosto LPN - 08/20/2024 8:27 AM EST is calling to check on status of prior auth. would like a call back. Rakel Agosto LPN * Telephone Encounter - Vibha Peña LPN - 08/14/2024 11:00 AM EST Form completed and faxed 08/10/24. * Telephone Encounter - Vibha Peña LPN - 08/08/2024 1:07 PM EST Unable to complete electronically. Previously approved from 09/26/23 to 09/25/24. High utilization for rec'd from [facility]. To pcp to sign. * Telephone Encounter - Sahara Moreno RN - 08/08/2024 11:47 AM EST Prior Authorization Documentation Prior authorization requested for the following medication: Medication: Blood sugar test strips - test 8 times a day- medically necessary for labile blood sugars (highs and lows) Provider: DeNA Name: [employer] Phone number: [phone] Patient ID number: [id number] Pharmacy Name: [facility] Telephone number: [phone] documented in this encounterWadsworth-[facility]03-[facility]25 Telephone encounter Note * Telephone Encounter - Susana Fuentes RN - 09/23/2024 11:32 AM EDT Patient's spouse calling to advise on the following blood sugar readings. At 0230: 139 At 0600: 121-pt took 3 units of insulin Aspart at that time and ate breakfast At 1000: 89-didn't take insulin Aspart. Ate half of her lunch At 11:10: 129 At 11:30 149 Pts spouse calling to inquire whether patient should take insulin Aspart now before eating the restof her lunch or what should be the next steps? Conferenced to [facility], to speak with provider city distribution clerk for Renetta Mcgee CNP. GO TO THE EMERGENCY ROOM OR CALL 911 IF: * You develop any new symptoms * Your condition worsens * You are concerned or anxious about your condition for any other reason. If you have any questions, you can call Nurse correctional case manager back. [facility]03-09-2025 Miscellaneous Notes* Telephone Encounter - Susana Fuentes RN - 09/23/2024 11:32 AM EDT Patient's spouse calling to advise on the following blood sugar readings. At 0230: 139 At 0600: 121-pt took 3 units of insulin Aspart at that time and ate breakfast At 1000: 89-didn't take insulin Aspart. Ate half of her lunch At 11:10: 129 At 11:30 149 Pts spouse calling to inquire whether patient should take insulin Aspart now before eating the restof her lunch or what should be the next steps? Conferenced to [facility] gas operator[facility], to speak with provider city distribution clerk for Renetta Mcgee CNP. GO TO THE EMERGENCY ROOM OR CALL 911 IF: * You develop any new symptoms * Your condition worsens * You are concerned or anxious about your condition for any other reason. If you have any questions, you can call Nurse correctional case manager back. documented in this encounterWad[facility]03-07-2025 Telephone encounter Note * Telephone Encounter - Vibha Peña LPN - 09/21/2024 1:44 PM EST Denial rec'd for kroger test strips. Approval rec'd for one touch ultra strips [facility]03-07-2025 Telephone encounter Note* Telephone Encounter - Sahara Moreno RN - 09/21/2024 1:22 PM EST Pt reports she went to [facility] ER last night with diarrhea. Reports she was having constipation, and took x-lax, that worked too good and ended up with terrible diarrhea, into the night. Reports ER gave her IV fluids and something to stop the diarrhea. Reports a nurse recommended imodium, and patient took that when she got home. Reports the diarrhea is slowing down. Reports she ate a salad for lunch,and that went straight through her. Patient asking what should she eat. Advised with diarrhea she needs to avoid raw fruits and veg, dairy, citrus and spice for up to 5 days after diarrhea stops. Advised she can eat BRAT diet- bananas,rice, applesauce, toast. Pt needs to watch carbs d/t diabetes. Advised she can eat soft foods with protein - chicken noodle soup, chicken broth, eggs, oatmeal, fish, soft chicken- like in soup. Advised pt to drink plenty of clear liquids. Pt agreeable. Pt reports her BS right now is 232 and she is keeping a close eye on it. is as well. Scheduled ER f/u with pcp. Pt agreeable to call back with any questions or concerns. [facility]03-07-[facility]25 Miscellaneous Notes* Telephone Encounter - Sahara Moreno RN - 09/21/2024 1:22 PM EST Pt reports she went to [facility] ER last night with diarrhea. Reports she was having constipation, and took x-lax, that worked too good and ended up with terrible diarrhea, into the night. Reports ER gave her IV fluids and something to stop the diarrhea. Reports a nurse recommended imodium, and patient took that when she got home. Reports the diarrhea is slowing down. Reports she ate a salad for lunch,and that went straight through her. Patient asking what should she eat. Advised with diarrhea she needs to avoid raw fruits and veg, dairy, citrus and spice for up to 5 days after diarrhea stops. Advised she can eat BRAT diet- bananas,rice, applesauce, toast. Pt needs to watch carbs d/t diabetes. Advised she can eat soft foods with protein - chicken noodle soup, chicken broth, eggs, oatmeal, fish, soft chicken- like in soup. Advised pt to drink plenty of clear liquids. Pt agreeable. Pt reports her BS right now is 232 and she is keeping a close eye on it. is as well. Scheduled ER f/u with pcp. Pt agreeable to call back with any questions or concerns. documented in this encounterWadsworth-[facility]03-07-2025 Discharge summary Author Nik Nunez [facility] Note Date/Time September 21, 2024 7:09 am [facility] Medical Records Department [address] [place] [address] Emergency Department Summary 09/21/24 MR#: [id number] Acct: [id number] Name: ATTILA KIDD Rep #:[id number] : 1945 79 From: Nik Nunez MD PCP: Dr. Octavio Reza MD Status:RE G ER Location: ED HPI History of Present Illness Chief Complaint: Hyperglycemia Informant: patient and spouse/S.O. Narrative Narrative: 79-year-old female presenting for hyperglycemia. She was seen here in the ER and discharged 5 or 6 hours ago, she was having vomiting and diarrhea and abdominal discomfort. Her blood sugar was in the 120s and 150s, and she was discharged with a prescription for nausea medication and diagnosed with enteritis. When she went home her blood sugar went up to the low 300s before she went to bed, so states he gave her her Lantus, but when she woke up this morning, blood sugar is 406. Patient states she does not feel any different; however her nausea is better, she still had some diarrhea overnight, no blood, and she denies any abdominal pain. She is fatigued. [facility] Medical History THAIS (obstructive sleep apnea) Hyperglycemia due to type 2 diabetes mellitus Palpitations Sinus bradycardia Abnormal EKG Essential hypertension Premature atrial contractions Charcot's joint of left foot Asthma GERD (gastroesophageal reflux disease) History of DVT (deep vein thrombosis) Bimalleolar ankle fracture Paroxysmal SVT (supraventricular tachycardia) Premature ventricular contraction Hyperlipidemia Diabetes mellitus, type II Home Medications ?Medication ?Instructions ?Recorded ?Last Taken ?Type aspirin 81 mg tablet,delayed 81 mg PO DAILY heart heal th 11/24/17 02/06/24 History release ramipril 10 mg capsule 10 mg PO BID HEART 01/19/19 02/06/24 History cholecalciferol (vitamin D3) 1,250 1,250 mcg PO QWEEK SUPPLEMENT 12/03/19 02/05/24 History mcg (50,000 unit) capsule furosemide 20 mg tablet 20 mg PO DAILY PRN water pil l 01/22/21 Unknown History budesonide-formoterol HFA 160 2 puff inhalation BID THMA 12/21/21 02/06/24 History mcg-4.5 mcg/actuation aerosol inhaler zolpidem 5 mg tablet 2.5 mg PO QHS PRN Insomnia 0 02/11/22 Unknown History insulin lispro 100 unit/mL 6 unit subcut TIDCM dm 1201/0602/06/24 History subcutaneous solution omeprazole magnesium 20 mg 20 mg PO DAILY GERD 2 02/06/24 History tablet,delayed release (Prilosec OTC) amlodipine 10 mg tablet 5 mg PO DAILY 10/01/2302/05 History metoprolol tartrate 50 mg tablet 25 mg PO Q12H heart r ate, BP 10/01/23 02/06/24 History blood sugar diagnostic (OneTouch 02/06/24 Unknown His tory Ultra Test strips) benzonatate 100 mg capsule 100 mg PO TID 06/13/24 Unkn own History insulin glargine 100 unit/mL (3 20 unit subcut QHS Unknown History mL) subcutaneous pen (Lantus Solostar U-100 Insulin) mometasone 0.1 % topical cream 1 applic topical QDAY 1 08/13/23 Unknown History nitrofurantoin 100 mg capsule 100 mg PO BID 06/13/24 U nknown History Allergy/AdvReac Type Severity Reaction Status Date / Time hydromorphone Allergy Severe Anaphylaxis Verified 09/21/24 06:21 tramadol Allergy Severe Anaphylaxis Verified 09/21/24 06:21 amiodarone Allergy Intermediate Swelling Verified 09/21/24 06:21 Marienthal And Derivatives Allergy Intermediate Hives Verified 09/21/24 06:21 morphine Allergy Intermediate confusion Verified 09/21/24 06:21 moxifloxacin Allergy Intermediate Shortness Verified 09/21/24 06:21 of breath nabumetone Allergy Intermediate damaged Verified 09/21/24 06:21 kidney penicillin G Allergy Intermediate TURNS BLUE Verified 09/21/24 06:21 propoxyphene Allergy Intermediate PT UNSURE Verified 09/21/24 06:21 OF REACTION amlodipine Allergy Mild Abd Verified 09/21/24 06:21 cramps/diarrhea desloratadine Allergy Mild headache Verified 09/21/24 06:21 glutamine (From Airborne Allergy Mild Itching Verified 09/21/24 06:21 (ascorbate sodium)) herbal complex no.124 (From Allergy Mild Itching Verified 09/21/24 06:21 Airborne (ascorbate sodium)) hydrocodone (From Edon) Allergy Mild dystonia Verified 09/21/24 06:21 lysine HCl (From Airborne Allergy Mild Itching Verified 09/21/24 06:21 (ascorbate sodium)) multivitamin with minerals Allergy Mild Itching Verified 09/21/24 06:21 (From Airborne (ascorbate sodium)) pravastatin Allergy Unknown unknown Verified 09/21/24 06:21 rosuvastatin (From Crestor) Allergy Unknown myalgias Verified 09/21/24 06:21 simvastatin Allergy Unknown unknown Verified 09/21/24 06:21 escitalopram Allergy Other Verified 09/21/24 06:21 hydrochlorothiazide Allergy Other Verified 09/21/24 06:21 Gfigwqv-MCD-LhP Reductase AdvReac Severe myalgias Verified 09/21/24 06:21 Inhibitor (Jpqggbp-Edk-Otx Reductase Inhibitor) amoxicillin (From Augmentin) AdvReac Other Verified 09/21/24 06:21 clavulanic acid (From AdvReac Other Verified 09/21/24 06:21 Augmentin) codeine AdvReac Nausea Verified 09/21/24 06:21 naproxen (From Naprosyn) AdvReac Nausea Verified 09/21/24 06:21 oseltamivir (From Tamiflu) AdvReac HALLUCINATI Verified 09/21/24 06:21 ONS Family History Mother Aortic stenosis Presence of permanent cardiac pacemaker Surgical History History of herniorrhaphy Status post ORIF of fracture of ankle History of tonsillectomy History of cholecystectomy Social History household members: spouse Smoking Status: Former smoker alcohol intake: never substance use type: does not use caffeine: Yes Type: coffee Number of servings: 3 ROS ROS ED Constitutional Constitutional ED: Reports fatigue; Denies chills or fever(s) Eyes Eyes: Denies change in vision or diplopia ENT ENT ED: Denies rhinorrhea or sore throat Cardiovascular Cardiovascular: Denies chest pain or palpitations Respiratory/Chest Respiratory/Chest: Denies cough or dyspnea Gastrointestinal Gastrointestinal: Reports diarrhea; Denies abdominal pain, nausea or vomiting Genitourinary Genitourinary ED: Denies dysuria or hematuria Musculoskeletal Musculoskeletal: Denies back pain or neck pain Integumentary Denies abscess or rash Neurologic Neurologic: Denies headache(s), paresthesias or weakness EXAM Physical Exam Const Vital Signs: 09/21/24 06:22 09/21/24 06:26 Temperature 98.4 F Temperature Source Oral Pulse Rate 68 Respiratory Rate 16 Respiratory Effort Normal Non-Labored Respiratory Pattern Normal Blood Pressure 115/35 L Blood Pressure Mean 61 Pulse Ox 98 Oxygen Delivery Method Room Air Positive well nourished, well developed and obese General Appearance ED: well developed and NAD Nutritional Appearance: obese HEENT Reports moist mucous membranes normocephalic and atraumatic Eyes PERRL and EOMs intact bilaterally Neck full ROM and supple Resp normal respiratory effort and clear to auscultation bilaterally Cardio regular rate, regular rhythm and no murmurs Rate: Negative for tachycardic GI non-tender and non-distended Auscultation: normoactive bowel sounds Palpation: soft Back/Spine no CVA tenderness General Back: other FROM Extremity normal to inspection General Extremety ED: Negative for edema, pulses abnormal or tenderness General Extremity: Negative for edema or pulses abnormal Neuro oriented x3, CN's II-XII intact bilaterally and no sensory deficits noted Sensorium / Orientation: awake and alert Motor Exam: strength 5/5 throughout Skin no rashes or lesions noted and no wounds MDM MDM MDM Narrative Medical decision making narrative: The patient is a type II diabetic according to EMR, and she has both Lantus and aspart insulin at home. I advised the patient and that the aspart is the insulin to use in the case of hyperglycemia not the Lantus. I also reinforced that he was not incorrect to give her her nighttime Lantus, it just does not bring blood sugar down quickly. We checked her blood sugar here, it was 396. She will given 16 units of lispro SC and rechecked. I do not think sheneeds any more workup. I reviewed her recent ED case, she is tolerating oral fluids well now, she does not have any abdominal pain or abdominal tenderness, and the plan will be to get her blood sugar down to a reasonable level, give herinstructions for treating it at home with her aspart if it goes up again, and discharge her when her sugar is more stable. Lab Data Attestation: I reviewed the patient's lab results. Labs: Laboratory Results - last 24 hr 09/21/24 06:24 POC Glucose 392 H Discharge Plan Triage Chief Complaint: Hyperglycemia ED Provider: Nik Nunez Dx/Rx/DC Orders Clinical Impression: Hyperglycemia due to type 2 diabetes mellitus, Enteritis Instructions: ED Diabetic Hyperglycemia Prescriptions: No Action aspirin 81 mg tablet,delayed release (DR/EC) 81 mg PO DAILY Patient Comments: only takes sometimes cholecalciferol (vitamin D3) 1,250 mcg (50,000 unit) capsule 1,250 mcg PO QWEEK furosemide 20 mg tablet 20 mg PO DAILY PRN (Reason: water pill) insulin lispro 100 unit/mL solution 6 unit subcut TIDCM Protocol: 4. Sliding Scale Insulin High-Med Dosing Condition: 150-199 mg/dl = 2 units Condition: 200-259 mg/dl = 4 units Condition: 260-324 mg/dl = 6 units Condition: 325-374 mg/dl = 8 units Condition: 375-409 mg/dl = 10 units Condition: 410-449 mg/dl = 11 units Condition: Greater than 449 call physician Protocol Text: - Use for Total Daily Dose of Insulin 56-80 units - Patient who are insulin resistant or septic HIGH MEDIUM DOSING ALGORITHM Patient Comments: INJECT 3 TO 10 UNITS SUBCUTANEOUSLY BEFORE MEALS DIRECTED budesonide-formoterol 160-4.5 mcg/actuation HFA aerosol inhaler 2 puff inhalation BID omeprazole magnesium [Prilosec OTC] 20 mg tablet,delayed release (DR/EC) 20 mg PO DAILY mometasone 0.1 % cream 1 applic topical QDAY benzonatate 100 mg capsule 100 mg PO TID nitrofurantoin 100 mg capsule 100 mg PO BID Rx Instructions: must administer with a meal/food ramipril 10 MG capsule 10 mg PO BID Patient Comments: TAKE 1 CAPSULE BY MOUTH TWICE DAILY zolpidem 5 mg Tablet 2.5 mg PO QHS PRN (Reason: Insomnia) metoprolol tartrate 50 mg tablet 25 mg PO Q12H Patient Comments: takes half tablet in morning and night amlodipine 10 mg tablet 5 mg PO DAILY Patient Comments: takes half tablet/day (DME) OneTouch Ultra Test Strip MISCELLANEOUS Patient Comments: [NO ORIGINAL SIG] insulin glargine [Lantus Solostar U-100 Insulin] 100 unit/mL (3 mL) insulin pen 20 unit subcut QHS Rx Instructions: 20-26u Primary Care Provider: Octavio Reza Referrals: Octavio Reza MD [Primary Care Provider] - 1-2 Days if not improving Print Language: Gibraltarian Disposition Disposition: Home, Self Care What to do if you have Problems For any increased pain, shortness of breath, bleeding, nausea or vomiting, chestpain, or any unexpected problems, contact your Primary Care Provider. Call [facility] ([phone]) or report to the closest Emergency Room. Call 911 if necessary. 09/21/24 07 <Electronically signed by Nik Nunez MD> Cosigner Signature (if applicable): CC: Dr. Octavio Reza MD ~ Signed [facility] Work Phone: 1(393) 570-629103-07-2025 Discharge summary [facility] Medical Records Department [address] [place] [address] Emergency Department Summary 09/21/24 MR#: [id number] Acct: [id number] Name: ATTILA KIDD Rep #:[id number] : 1945 79 From: Nik Nunez MD PCP: Dr. Octavio Reza MD Status:RE G ER Location: ED HPI History of Present Illness Chief Complaint: Hyperglycemia Informant: patient and spouse/S.O. Narrative Narrative: 79-year-old female presenting for hyperglycemia. She was seen here in the ER and discharged 5 or 6 hours ago, she was having vomiting and diarrhea and abdominal discomfort. Her blood sugar was in [id number] and 150s, and she was discharged with a prescription for nausea medication and diagnosed with enteritis. When she went home her blood sugar went up to the low 300s before she went to bed, so states he gave her her Lantus, but when she woke up this morning, blood sugar is 406. Patient states she does not feel any different; however her nausea is better, she still had some diarrhea overnight, no blood, and she denies any abdominal pain. She is fatigued. [facility] Medical History THAIS (obstructive sleep apnea) Hyperglycemia due to type 2 diabetes mellitus Palpitations Sinus bradycardia Abnormal EKG Essential hypertension Premature atrial contractions Charcot's joint of left foot Asthma GERD (gastroesophageal reflux disease) History of DVT (deep vein thrombosis) Bimalleolar ankle fracture Paroxysmal SVT (supraventricular tachycardia) Premature ventricular contraction Hyperlipidemia Diabetes mellitus, type II Home Medications ?Medication ?Instructions ?Recorded ?Last Taken ?Type aspirin 81 mg tablet,delayed 81 mg PO DAILY heart heal th 11/24/17 02/06/24 History release ramipril 10 mg capsule 10 mg PO BID HEART 01/19/19 02/06/24 History cholecalciferol (vitamin D3) 1,250 1,250 mcg PO QWEEK SUPPLEMENT 12/03/19 02/05/24 History mcg (50,000 unit) capsule furosemide 20 mg tablet 20 mg PO DAILY PRN water pil l 01/22/21 Unknown History budesonide-formoterol HFA 160 2 puff inhalation BID THMA 12/21/21 02/06/24 History mcg-4.5 mcg/actuation aerosol inhaler zolpidem 5 mg tablet 2.5 mg PO QHS PRN Insomnia 0 02/11/22 Unknown History insulin lispro 100 unit/mL 6 unit subcut TIDCM dm 12/0 01/0602/06/24 History subcutaneous solution omeprazole magnesium 20 mg 20 mg PO DAILY GERD 2 02/06/24 History tablet,delayed release (Prilosec OTC) amlodipine 10 mg tablet 5 mg PO DAILY 10/01/2302/05 History metoprolol tartrate 50 mg tablet 25 mg PO Q12H heart r ate, BP 10/01/23 02/06/24 History blood sugar diagnostic (OneTouch 02/06/24 Unknown His tory Ultra Test strips) benzonatate 100 mg capsule 100 mg PO TID 06/13/24 Unkn own History insulin glargine 100 unit/mL (3 20 unit subcut QHS Unknown History mL) subcutaneous pen (Lantus Solostar U-100 Insulin) mometasone 0.1 % topical cream 1 applic topical QDAY 1 08/13/23 Unknown History nitrofurantoin 100 mg capsule 100 mg PO BID 06/13/24 U nknown History Allergy/AdvReac Type Severity Reaction Status Date / Time hydromorphone Allergy Severe Anaphylaxis Verified 09/21/24 06:21 tramadol Allergy Severe Anaphylaxis Verified 09/21/24 06:21 amiodarone Allergy Intermediate Swelling Verified 09/21/24 06:21 Marienthal And Derivatives Allergy Intermediate Hives Verified 09/21/24 06:21 morphine Allergy Intermediate confusion Verified 09/21/24 06:21 moxifloxacin Allergy Intermediate Shortness Verified 09/21/24 06:21 of breath nabumetone Allergy Intermediate damaged Verified 09/21/24 06:21 kidney penicillin G Allergy Intermediate TURNS BLUE Verified 09/21/24 06:21 propoxyphene Allergy Intermediate PT UNSURE Verified 09/21/24 06:21 OF REACTION amlodipine Allergy Mild Abd Verified 09/21/24 06:21 cramps/diarrhea desloratadine Allergy Mild headache Verified 09/21/24 06:21 glutamine (From Airborne Allergy Mild Itching Verified 09/21/24 06:21 (ascorbate sodium)) herbal complex no.124 (From Allergy Mild Itching Verified 09/21/24 06:21 Airborne (ascorbate sodium)) hydrocodone (From Edon) Allergy Mild dystonia Verified 09/21/24 06:21 lysine HCl (From Airborne Allergy Mild Itching Verified 09/21/24 06:21 (ascorbate sodium)) multivitamin with minerals Allergy Mild Itching Verified 09/21/24 06:21 (From Airborne (ascorbate sodium)) pravastatin Allergy Unknown unknown Verified 09/21/24 06:21 rosuvastatin (From Crestor) Allergy Unknown myalgias Verified 09/21/24 06:21 simvastatin Allergy Unknown unknown Verified 09/21/24 06:21 escitalopram Allergy Other Verified 09/21/24 06:21 hydrochlorothiazide Allergy Other Verified 09/21/24 06:21 Ofqrfwr-AKS-ArJ Reductase AdvReac Severe myalgias Verified 09/21/24 06:21 Inhibitor (Qvqnhot-Tho-Csg Reductase Inhibitor) amoxicillin (From Augmentin) AdvReac Other Verified 09/21/24 06:21 clavulanic acid (From AdvReac Other Verified 09/21/24 06:21 Augmentin) codeine AdvReac Nausea Verified 09/21/24 06:21 naproxen (From Naprosyn) AdvReac Nausea Verified 09/21/24 06:21 oseltamivir (From Tamiflu) AdvReac HALLUCINATI Verified 09/21/24 06:21 ONS Family History Mother Aortic stenosis Presence of permanent cardiac pacemaker Surgical History History of herniorrhaphy Status post ORIF of fracture of ankle History of tonsillectomy History of cholecystectomy Social History household members: spouse Smoking Status: Former smoker alcohol intake: never substance use type: does not use caffeine: Yes Type: coffee Number of servings: 3 ROS ROS ED Constitutional Constitutional ED: Reports fatigue; Denies chills or fever(s) Eyes Eyes: Denies change in vision or diplopia ENT ENT ED: Denies rhinorrhea or sore throat Cardiovascular Cardiovascular: Denies chest pain or palpitations Respiratory/Chest Respiratory/Chest: Denies cough or dyspnea Gastrointestinal Gastrointestinal: Reports diarrhea; Denies abdominal pain, nausea or vomiting Genitourinary Genitourinary ED: Denies dysuria or hematuria Musculoskeletal Musculoskeletal: Denies back pain or neck pain Integumentary Denies abscess or rash Neurologic Neurologic: Denies headache(s), paresthesias or weakness EXAM Physical Exam Const Vital Signs: 09/21/24 06:22 09/21/24 06:26 Temperature 98.4 F Temperature Source Oral Pulse Rate 68 Respiratory Rate 16 Respiratory Effort Normal Non-Labored Respiratory Pattern Normal Blood Pressure 115/35 L Blood Pressure Mean 61 Pulse Ox 98 Oxygen Delivery Method Room Air Positive well nourished, well developed and obese General Appearance ED: well developed and NAD Nutritional Appearance: obese HEENT Reports moist mucous membranes normocephalic and atraumatic Eyes PERRL and EOMs intact bilaterally Neck full ROM and supple Resp normal respiratory effort and clear to auscultation bilaterally Cardio regular rate, regular rhythm and no murmurs Rate: Negative for tachycardic GI non-tender and non-distended Auscultation: normoactive bowel sounds Palpation: soft Back/Spine no CVA tenderness General Back: other FROM Extremity normal to inspection General Extremety ED: Negative for edema, pulses abnormal or tenderness General Extremity: Negative for edema or pulses abnormal Neuro oriented x3, CN's II-XII intact bilaterally and no sensory deficits noted Sensorium / Orientation: awake and alert Motor Exam: strength 5/5 throughout Skin no rashes or lesions noted and no wounds MDM MDM MDM Narrative Medical decision making narrative: The patient is a type II diabetic according to EMR, and she has both Lantus and aspart insulin at home. I advised the patient and that the aspart is the insulin to use in the case of hyperglycemia not the Lantus. I also reinforced that he was not incorrect to give her her nighttime Lantus, it just does not bring blood sugar down quickly. We checked her blood sugar here, it was 396. She will given 16 units of lispro SC and rechecked. I do not think sheneeds any more workup. I reviewed her recent ED case, she is tolerating oral fluids well now, she does not have any abdominal pain or abdominal tenderness, and the plan will be to get her blood sugar down to a reasonable level, give herinstructions for treating it at home with her aspart if it goes up again, and discharge her when hersugar is more stable. Lab Data Attestation: I reviewed the patient's lab results. Labs: Laboratory Results - last 24 hr 09/21/24 06:24 POC Glucose 392 H Discharge Plan Triage Chief Complaint: Hyperglycemia ED Provider: Nik Nunez Dx/Rx/DC Orders Clinical Impression: Hyperglycemia due to type 2 diabetes mellitus, Enteritis Instructions: ED Diabetic Hyperglycemia Prescriptions: No Action aspirin 81 mg tablet,delayed release (DR/EC) 81 mg PO DAILY Patient Comments: only takes sometimes cholecalciferol (vitamin D3) 1,250 mcg (50,000 unit) capsule 1,250 mcg PO QWEEK furosemide 20 mg tablet 20 mg PO DAILY PRN (Reason: water pill) insulin lispro 100 unit/mL solution 6 unit subcut TIDCM Protocol: 4. Sliding Scale Insulin High-Med Dosing Condition: 150-199 mg/dl = 2 units Condition: 200-259 mg/dl = 4 units Condition: 260-324 mg/dl = 6 units Condition: 325-374 mg/dl = 8 units Condition: 375-409 mg/dl = 10 units Condition: 410-449 mg/dl = 11 units Condition: Greater than 449 call physician Protocol Text: - Use for Total Daily Dose of Insulin 56-80 units - Patient who are insulin resistant or septic HIGH MEDIUM DOSING ALGORITHM Patient Comments: INJECT 3 TO 10 UNITS SUBCUTANEOUSLY BEFORE MEALS DIRECTED budesonide-formoterol 160-4.5 mcg/actuation HFA aerosol inhaler 2 puff inhalation BID omeprazole magnesium [Prilosec OTC] 20 mg tablet,delayed release (DR/EC) 20 mg PO DAILY mometasone 0.1 % cream 1 applic topical QDAY benzonatate 100 mg capsule 100 mg PO TID nitrofurantoin 100 mg capsule 100 mg PO BID Rx Instructions: must administer with a meal/food ramipril 10 MG capsule 10 mg PO BID Patient Comments: TAKE 1 CAPSULE BY MOUTH TWICE DAILY zolpidem 5 mg Tablet 2.5 mg PO QHS PRN (Reason: Insomnia) metoprolol tartrate 50 mg tablet 25 mg PO Q12H Patient Comments: takes half tablet in morning and night amlodipine 10 mg tablet 5 mg PO DAILY Patient Comments: takes half tablet/day (DME) OneTouch Ultra Test Strip MISCELLANEOUS Patient Comments: [NO ORIGINAL SIG] insulin glargine [Lantus Solostar U-100 Insulin] 100 unit/mL (3 mL) insulin pen 20 unit subcut QHS Rx Instructions: 20-26u Primary Care Provider: Octavio Reza Referrals: Octavio Reza MD [Primary Care Provider] - 1-2 Days if not improving Print Language: Gibraltarian Disposition Disposition: Home, Self Care What to do if you have Problems For any increased pain, shortness of breath, bleeding, nausea or vomiting, chestpain, or any unexpected problems, contact your Primary Care Provider. Call [facility] ([phone]) or report tothe closest Emergency Room. Call 911 if necessary. 09/21/24 0709 Cosigner Signature (if applicable): CC: Dr. Octavio Reza MD ~ Signed [facility]03-07-2025 Telephone encounter Note* Telephone Encounter - Tere Mcgrath RN - 09/21/2024 5:42 AM EST Reason for Call: Blood sugar 414 at 0530 today when she woke up, and 426 at time of call. Outcome: Call Software Administrator now. Established with [facility] Endocrinology Renetta Mcgee CNP. Patient and decline Endocrinology city distribution clerk provider page and prefer to go to [facility] ED now. Reason for Disposition Blood glucose > 400 mg/dL (22.2 mmol/L) Answer Assessment - Initial Assessment Questions 1. BLOOD GLUCOSE: Blood sugar 414 at 0530 today when she woke up, and 426 at time of call States blood sugar was fine at yesterdays [place] ED diarrhea visit. States she ate a few peanut butter crackers ED doctor approved she could eat, and nothing else to eat or drink since then. States blood sugar readings were in the 100's in the ED and did not receive any medications in the ED. 2. ONSET: See above. 3. USUAL RANGE: Normal blood sugar range in the 100's. 4. KETONES: No. 5. TYPE 1 or 2: States diabetes first diagnosed at 51 years of age and was told she was Type 1 all my life.. EpicProblem List - Type 1 DM. 6. INSULIN: Compliant with Lantus 22 units at bedtime, last taken at 0110 today for blood sugar 322. Compliant with Asparte three times a day with meals - breakfast 3 units plus sliding scale, lunch 4units plus sliding scale, dinner 5 units plus sliding scale - last taken yesterday. 7. DIABETES PILLS: No. 8. OTHER SYMPTOMS: Fatigue same as time of ED diarrhea visit yesterday. No fever, frequent urination, dizziness, vomiting, weakness. Protocols used: Diabetes - High Blood Swueg-CNGAL-JI [facility]03-07-2025 Miscellaneous Notes* Telephone Encounter - Tere Mcgrath RN - 09/21/2024 5:42 AM EST Reason for Call: Blood sugar 414 at 0530 today when she woke up, and 426 at time of call. Outcome: Call Software Administrator now. Established with [facility] Endocrinology Renetta Mcgee CNP. Patient and decline Endocrinology city distribution clerk provider page and prefer to go to [facility] ED now. Reason for Disposition Blood glucose > 400 mg/dL (22.2 mmol/L) Answer Assessment - Initial Assessment Questions 1. BLOOD GLUCOSE: Blood sugar 414 at 0530 today when she woke up, and 426 at time of call States blood sugar was fine at yesterdays [place] ED diarrhea visit. States she ate a few peanut butter crackers ED doctor approved she could eat, and nothing else to eat or drink since then. States blood sugar readings were in the 100's in the ED and did not receive any medications in the ED. 2. ONSET: See above. 3. USUAL RANGE: Normal blood sugar range in the 100's. 4. KETONES: No. 5. TYPE 1 or 2: States diabetes first diagnosed at 51 years of age and was told she was Type 1 all my life.. EpicProble List - Type 1 DM. 6. INSULIN: Compliant with Lantus 22 units at bedtime, last taken at 0110 today for blood sugar 322. Compliant with Asparte three times a day with meals - breakfast 3 units plus sliding scale, lunch 4units plus sliding scale, dinner 5 units plus sliding scale - last taken yesterday. 7. DIABETES PILLS: No. 8. OTHER SYMPTOMS: Fatigue same as time of ED diarrhea visit yesterday. No fever, frequent urination, dizziness, vomiting, weakness. Protocols used: Diabetes - High Blood [id number]-KYCBE-[id number] documented in this encounterW[facility] Discharge summary [facility] Medical Records Department [facility] [place] [address] Emergency Department Summary 09/20/24 MR#: [id number] Acct: [id number] Name: ATTILA KIDD Rep #:[id number] : 1945 79 From: Lars Dahl DO PCP: Dr. Octavio Reza MD Status:RE G ER Location: ED HPI History of Present Illness Chief Complaint: General Illness Narrative Narrative: Patient is a 79-year-old female past medical history of THAIS, hypertension, asthma, GERD, type 2 diabetes who presents to the emerged part with chief complaint of of abdominal pain constipation and diarrhea. Patient states that she does have a history of diabetes and is recently started a new diet and has been constipated for the last few days. She states that today she took MiraLAX and noted thatshe had several episodes of diarrhea. She states that she was concerned that something may be goingon prompting her to come here for the valuation management. Patient denies any sick contacts. [facility] Medical History THAIS (obstructive sleep apnea) Hyperglycemia due to type 2 diabetes mellitus Palpitations Sinus bradycardia Abnormal EKG Essential hypertension Premature atrial contractions Charcot's joint of left foot Asthma GERD (gastroesophageal reflux disease) History of DVT (deep vein thrombosis) Bimalleolar ankle fracture Paroxysmal SVT (supraventricular tachycardia) Premature ventricular contraction Hyperlipidemia Diabetes mellitus, type II Home Medications ?Medication ?Instructions ?Recorded ?Last Taken ?Type aspirin 81 mg tablet,delayed 81 mg PO DAILY heart heal th 11/24/17 02/06/24 History release ramipril 10 mg capsule 10 mg PO BID HEART 01/19/19 02/06/24 History cholecalciferol (vitamin D3) 1,250 1,250 mcg PO QWEEK SUPPLEMENT 12/03/19 02/05/24 History mcg (50,000 unit) capsule furosemide 20 mg tablet 20 mg PO DAILY PRN water pil l 01/22/21 Unknown History budesonide-formoterol HFA 160 2 puff inhalation BID THMA 12/21/21 02/06/24 History mcg-4.5 mcg/actuation aerosol inhaler zolpidem 5 mg tablet 2.5 mg PO QHS PRN Insomnia 0 02/11/22 Unknown History insulin lispro 100 unit/mL 6 unit subcut TIDCM dm 12/01/0602/06/24 History subcutaneous solution omeprazole magnesium 20 mg 20 mg PO DAILY GERD 2 02/06/24 History tablet,delayed release (Prilosec OTC) amlodipine 10 mg tablet 5 mg PO DAILY 10/01/2302/05 History metoprolol tartrate 50 mg tablet 25 mg PO Q12H heart r ate, BP 10/01/23 02/06/24 History blood sugar diagnostic (OneTouch 02/06/24 Unknown His tory Ultra Test strips) benzonatate 100 mg capsule 100 mg PO TID 06/13/24 Unkn own History insulin glargine 100 unit/mL (3 20 unit subcut QHS Unknown History mL) subcutaneous pen (Lantus Solostar U-100 Insulin) mometasone 0.1 % topical cream 1 applic topical QDAY 1 08/13/23 Unknown History nitrofurantoin 100 mg capsule 100 mg PO BID 06/13/24 U nknown History Allergy/AdvReac Type Severity Reaction Status Date / Time hydromorphone Allergy Severe Anaphylaxis Verified 09/20/24 17:49 tramadol Allergy Severe Anaphylaxis Verified 09/20/24 17:49 amiodarone Allergy Intermediate Swelling Verified 09/20/24 17:49 Marienthal And Derivatives Allergy Intermediate Hives Verified 09/20/24 17:49 morphine Allergy Intermediate confusion Verified 09/20/24 17:49 moxifloxacin Allergy Intermediate Shortness Verified 09/20/24 17:49 of breath nabumetone Allergy Intermediate damaged Verified 09/20/24 17:49 kidney penicillin G Allergy Intermediate TURNS BLUE Verified 09/20/24 17:49 propoxyphene Allergy Intermediate PT UNSURE Verified 09/20/24 17:49 OF REACTION amlodipine Allergy Mild Abd Verified 09/20/24 17:49 cramps/diarrhea desloratadine Allergy Mild headache Verified 09/20/24 17:49 glutamine (From Airborne Allergy Mild Itching Verified 09/20/24 17:49 (ascorbate sodium)) herbal complex no.124 (From Allergy Mild Itching Verified 09/20/24 17:49 Airborne (ascorbate sodium)) hydrocodone (From Edon) Allergy Mild dystonia Verified 09/20/24 17:49 lysine HCl (From Airborne Allergy Mild Itching Verified 09/20/24 17:49 (ascorbate sodium)) multivitamin with minerals Allergy Mild Itching Verified 09/20/24 17:49 (From Airborne (ascorbate sodium)) pravastatin Allergy Unknown unknown Verified 09/20/24 17:49 rosuvastatin (From Crestor) Allergy Unknown myalgias Verified 09/20/24 17:49 simvastatin Allergy Unknown unknown Verified 09/20/24 17:49 escitalopram Allergy Other Verified 09/20/24 17:49 hydrochlorothiazide Allergy Other Verified 09/20/24 17:49 Olybmzv-TBW-UdA Reductase AdvReac Severe myalgias Verified 09/20/24 17:49 Inhibitor (Sxycpja-Trr-Ujt Reductase Inhibitor) amoxicillin (From Augmentin) AdvReac Other Verified 09/20/24 17:49 clavulanic acid (From AdvReac Other Verified 09/20/24 17:49 Augmentin) codeine AdvReac Nausea Verified 09/20/24 17:49 naproxen (From Naprosyn) AdvReac Nausea Verified 09/20/24 17:49 oseltamivir (From Tamiflu) AdvReac HALLUCINATI Verified 09/20/24 17:49 ONS Family History Mother Aortic stenosis Presence of permanent cardiac pacemaker Surgical History History of herniorrhaphy Status post ORIF of fracture of ankle History of tonsillectomy History of cholecystectomy Social History household members: spouse Smoking Status: Former smoker alcohol intake: never substance use type: does not use caffeine: Yes Type: coffee Number of servings: 3 ROS ROS ED ROS Narrative Constitutional: Denies fevers, chills, headaches, lightness, dizziness Eyes: Denies change in vision double vision blurry vision Cardiovascular: Denies chest pain or palpitations Respiratory: Denies coughing wheezing shortness of breath Abdomen: Complains of constipation and diarrhea as well as abdominal pain as noted above : Denies urinary symptoms Neurological: Denies numbness, weakness, tingling Musculoskeletal: Denies back pain Skin: Denies rashes or lesions EXAM Physical Exam Narrative Exam Narrative: General: Patient lying in bed rest comfortably did not appear to be acute distress Head: Atraumatic, normocephalic Eyes: PERRL bilateral, EOMI bilateral, no conjunctival injection noted Neck: Soft, supple, trachea midline Cardiovascular: Regular rate and rhythm no murmurs gallops rubs are noted Respiratory: Clear to auscultation bilaterally no rales rhonchi or wheezes noted Abdomen: Soft, nondistended, diffuse tenderness palpation no rebound or guardingon exam Extremities: +5/5 strength noted in the bilateral per lower extremity, radial pulses +2/4 in the bilateral extremities, no pedal edema on exam Neurological: Patient follow commands though she was at [facility] year [id number] Skin: Warm, dry, intact no rashes or lesions noted Const Vital Signs: 09/20/24 17:49 09/20/24 19:04 09/20/24 21:01 Temperature 98.2 F 97.5 F L Temperature Source Oral Oral Pulse Rate 74 74 Respiratory Rate 14 19 H Respiratory Effort Normal Non-Labored Respiratory Pattern Normal Blood Pressure 140/68 H 128/54 H Blood Pressure Mean 92 78 Pulse Ox 98 95 Oxygen Delivery Method Room Air Room Air MDM MDM MDM Narrative Medical decision making narrative: Patient is a 79-year-old female who presented to the emerged part with a chief complaint of constipation, diarrhea, abdominal pain and concern for blood glucose being elevated. On the differential diagnose includes but limited to pancreatitis, appendicitis, bowel obstruction, UTI. Once workup is obtained reviewed she will be reevaluated. Patient's CBC was reviewed showed no evidence leukocytosis white blood count noted be 9.4, he was 13.8, platelet count was noted be 188. Patient sodium was noted 130, potassium normal 4.1, creatininewas 0.86. Patient's AST and ALT are22 and 17 respectively with a normal total bilirubin of 1.02. Patient lipase was noted be 12, urinalysis showed 500 leukocyte esterase 25-50 white cells withno bacteria she does not have any urinary symptoms this will be sent for culture. Patient CT abdomen pelviswith IV contrast showed fluid-filled prominent loops of small and large bowel no wall thickening oradjacent stranding is demonstrated. Differentials would include ileus versus enteritis. Patient was given oral challenge here in the emergency department and she tolerated this well without any vomiting. She was advised to continue supportive care with plenty of fluid hydration. She wasadvised to follow-up with her doctor in outpatient setting and return with worsening symptoms or any other concerns. She is agreeable this plan all question concerns answered she was discharged home in stable condition. Lab Data Labs: Laboratory Results - last 24 hr 09/20/24 09/20/24 19:10 20:01 WBC 9.4 RBC 4.63 Hgb 13.8 Hct 41.4 MCV 89.4 MCH 29.8 MCHC 33.3 RDW Std Deviation 41.9 RDW Coeff of Madalyn 12.8 Plt Count 188 MPV 12.6 H Immature Gran % (Auto) 0.200 Neut % (Auto) 90.2 H Lymph % (Auto) 3.7 L Titus % (Auto) 4.5 Eos % (Auto) 1.2 Baso % (Auto) 0.2 Absolute Neuts (auto) 8.5 H Absolute Lymphs (auto) 0.35 L Nucleated RBC % 0 Sodium 138 Potassium 4.1 Chloride 101 Carbon Dioxide 22.7 Anion Gap 14 BUN 28 H Creatinine 0.86 Est GFR (MDRD) Non-Af 69 BUN/Creatinine Ratio 32.4 H Glucose 153 H Calcium 9.1 Total Bilirubin 1.02 AST 22 ALT 17 Alkaline Phosphatase 78 Total Protein 6.7 Albumin 3.9 Globulin 2.9 Albumin/Globulin Ratio 1.3 Lipase 12 L Urine Color Yellow Urine Clarity Sl. Cloudy Urine pH 6.0 Ur Specific [place] 1.025 Urine Protein 30 H Urine Glucose (UA) Normal Urine Ketones 5 H Urine Occult Blood Negative Urine Nitrite Negative Urine Bilirubin 1 H Urine Urobilinogen Normal Ur Leukocyte Esterase 500 H Urine RBC 0 SEEN Urine WBC 25-50 SEEN Ur Squamous Epith Cells 0-5 SEEN Amorphous Sediment 1+ URATE Urine Bacteria 0 SEEN Urine Mucus 0 SEEN POC Glucose 128 H Radiography Diagnostic Testing: Clinical Impression(s) from Imaging Studies Abdomen/Pelvis CT 09/20/24 20:24 IMPRESSION: Fluid-filled prominent loops of small and large bowel, no wall thickening or adjacent stranding is demonstrated. Differentials would include ileus versus enteritis. Please see other nonacute findings as described above. One or more dose reduction techniques were used (e.g., Automated exposure control, adjustment of the mA and/or kV according to patient size, use of iterative reconstruction technique). Reading Location: [facility] Discharge Plan Triage Chief Complaint: General Illness ED Provider: Lars Dahl Dx/Rx/DC Orders Clinical Impression: Diarrhea, Enteritis Prescriptions: No Action aspirin 81 mg tablet,delayed release (DR/EC) 81 mg PO DAILY Patient Comments: only takes sometimes cholecalciferol (vitamin D3) 1,250 mcg (50,000 unit) capsule 1,250 mcg PO QWEEK furosemide 20 mg tablet 20 mg PO DAILY PRN (Reason: water pill) insulin lispro 100 unit/mL solution 6 unit subcut TIDCM Protocol: 4. Sliding Scale Insulin High-Med Dosing Condition: 150-199 mg/dl = 2 units Condition: 200-259 mg/dl = 4 units Condition: 260-324 mg/dl = 6 units Condition: 325-374 mg/dl = 8 units Condition: 375-409 mg/dl = 10 units Condition: 410-449 mg/dl = 11 units Condition: Greater than 449 call physician Protocol Text: - Use for Total Daily Dose of Insulin 56-80 units - Patient who are insulin resistant or septic HIGH MEDIUM DOSING ALGORITHM Patient Comments: INJECT 3 TO 10 UNITS SUBCUTANEOUSLY BEFORE MEALS DIRECTED budesonide-formoterol 160-4.5 mcg/actuation HFA aerosol inhaler 2 puff inhalation BID omeprazole magnesium [Prilosec OTC] 20 mg tablet,delayed release (DR/EC) 20 mg PO DAILY mometasone 0.1 % cream 1 applic topical QDAY benzonatate 100 mg capsule 100 mg PO TID nitrofurantoin 100 mg capsule 100 mg PO BID Rx Instructions: must administer with a meal/food ramipril 10 MG capsule 10 mg PO BID Patient Comments: TAKE 1 CAPSULE BY MOUTH TWICE DAILY zolpidem 5 mg Tablet 2.5 mg PO QHS PRN (Reason: Insomnia) metoprolol tartrate 50 mg tablet 25 mg PO Q12H Patient Comments: takes half tablet in morning and night amlodipine 10 mg tablet 5 mg PO DAILY Patient Comments: takes half tablet/day (DME) OneTouch Ultra Test Strip MISCELLANEOUS Patient Comments: [NO ORIGINAL SIG] insulin glargine [Lantus Solostar U-100 Insulin] 100 unit/mL (3 mL) insulin pen 20 unit subcut QHS Rx Instructions: 20-26u Primary Care Provider: Octavio Reza Referrals: Octavio Reza MD [Primary Care Provider] - Activity Restrictions/Additional Instructions: Follow-up with your doctor in outpatient setting. Return with worsening symptoms or any concerns. Your CT scan did not show anything surgical going on. Blood work was largely normal. Return with worsening symptoms or other concerns. Follow-up on urine culture with your primary care physician Print Language: Gibraltarian Disposition Disposition: Home, Self Care What to do if you have Problems For any increased pain, shortness of breath, bleeding, nausea or vomiting, chestpain, or any unexpected problems, contact your Primary Care Provider. Call [facility] ([phone]) or report tothe closest Emergency Room. Call 911 if necessary. 09/20/24 [id number] Cosigner Signature (if applicable): CC: Dr. Octavio Reza MD ~ Signed [facility]03-06-2025 Radiology Diagnostic study note [facility] Imaging Services [address], [place] [address] Abdomen/Pelvis W IV Cont ONLY MR#: [id number] Acct: [id number] Name: ATTILA KIDD Rep #: [id number] : 1945 F 79 From: Karen hewitt Afoj DO PCP: Dr. Octavio Reza MD Status: RE G ER Study:Abdomen/Pelvis W IV Cont ONLY Date of E xam: 09/20/24 Exam# [id number] Ordering Dr: Ethan Dahl DO PROCEDURE: ABDOMEN/PELVIS W IV CONT ONLY REASON FOR EXAM: Nausea vomiting and diarrhea. Abdominal pain. TECHNIQUE: Abdomen and pelvis CT with intravenous contrast. No oral contrast. IV CONTRAST: 96 cc of Isovue 370. COMPARISON: None. FINDINGS: Lung bases: Clear Liver: Unremarkable. Gallbladder: Gallbladder is not visualized likely surgically absent. Spleen: Unremarkable. Pancreas: Atrophic Adrenals: Unremarkable. Kidneys: Unremarkable. Bladder: Unremarkable. Reproductive Organs: Tiny calcification along the anterior urinary bladder wall,may represent a small calcified fibroid. Bowel: Evaluation of the bowel loops are limited due to lack of oral contrast. The stomach is unremarkable. Fluid-filled prominent loops of small and large bowel, no wall thickening or adjacent stranding is demonstrated. Appendix: Normal. Lymph nodes: No suspicious lymph node enlargement. Vasculature: Mild diffuse atherosclerotic calcifications are noted. Peritoneum / Retroperitoneum: No ascites. No free air. Bones: Degenerative changes of the spine. CT/Abdomen/Pelvis W IV Cont ONLY IMPRESSION: Fluid-filled prominent loops of small and large bowel, no wall thickening or adjacent stranding is demonstrated. Differentials would include ileus versus enteritis. Please see other nonacute findings as described above. One or more dose reduction techniques were used (e.g., Automated exposure control, adjustment of the mA and/or kV according to patient size, use of iterative reconstruction technique). [facility] CC: Dr. Octavio Reza MD; Dr. Lars Dahl DO ~ 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: Signed [facility]03-06-2025 Telephone encounter Note* Telephone Encounter - Vibha Peña LPN - 09/20/2024 3:55 PM EST MORE QUESTIONS REC'D TO COMPLETE. THIS WAS DONE AND FAXED BACK. [facility]03-06-2025 Telephone encounter Note* Telephone Encounter - Vibha Peña LPN - 09/20/2024 2:55 PM EST Was able to complete electronic PA for testing 8 times daily [facility]03-06-2025 Discharge summary Author Lars Dahl [facility] Note Date/Time September 20, 2024 11:1 6pm [facility] Medical Records Department [address] [place] [address] Emergency Department Summary 09/20/24 MR#: [id number] Acct: [id number] Name: ATTILA KIDD Rep #:[id number] : 1945 79 From: Lars Dahl DO PCP: Dr. Octavio Reza MD Status:RE G ER Location: ED HPI History of Present Illness Chief Complaint: General Illness Narrative Narrative: Patient is a 79-year-old female past medical history of THAIS, hypertension, asthma, GERD, type 2 diabetes who presents to the emerged part with chief complaint of of abdominal pain constipation and diarrhea. Patient states that she does have a history of diabetes and is recently started a new diet and has been constipated for the last few days. She states that today she took MiraLAX and noted that she had several episodes of diarrhea. She states that she was concerned that something may be going on prompting her to come here for the valuation management. Patient denies any sick contacts. [facility] Medical History THAIS (obstructive sleep apnea) Hyperglycemia due to type 2 diabetes mellitus Palpitations Sinus bradycardia Abnormal EKG Essential hypertension Premature atrial contractions Charcot's joint of left foot Asthma GERD (gastroesophageal reflux disease) History of DVT (deep vein thrombosis) Bimalleolar ankle fracture Paroxysmal SVT (supraventricular tachycardia) Premature ventricular contraction Hyperlipidemia Diabetes mellitus, type II Home Medications ?Medication ?Instructions ?Recorded ?Last Taken ?Type aspirin 81 mg tablet,delayed 81 mg PO DAILY heart heal th 11/24/17 02/06/24 History release ramipril 10 mg capsule 10 mg PO BID HEART 01/19/19 02/06/24 History cholecalciferol (vitamin D3) 1,250 1,250 mcg PO QWEEK SUPPLEMENT 12/03/19 02/05/24 History mcg (50,000 unit) capsule furosemide 20 mg tablet 20 mg PO DAILY PRN water pil l 01/22/21 Unknown History budesonide-formoterol HFA 160 2 puff inhalation BID THMA 12/21/21 02/06/24 History mcg-4.5 mcg/actuation aerosol inhaler zolpidem 5 mg tablet 2.5 mg PO QHS PRN Insomnia 0 02/11/22 Unknown History insulin lispro 100 unit/mL 6 unit subcut TIDCM dm 01/0602/06/24 History subcutaneous solution omeprazole magnesium 20 mg 20 mg PO DAILY GERD 2 02/06/24 History tablet,delayed release (Prilosec OTC) amlodipine 10 mg tablet 5 mg PO DAILY 10/01/2302/05 History metoprolol tartrate 50 mg tablet 25 mg PO Q12H heart r ate, BP 10/01/23 02/06/24 History blood sugar diagnostic (OneTouch 02/06/24 Unknown His tory Ultra Test strips) benzonatate 100 mg capsule 100 mg PO TID 06/13/24 Unkn own History insulin glargine 100 unit/mL (3 20 unit subcut QHS Unknown History mL) subcutaneous pen (Lantus Solostar U-100 Insulin) mometasone 0.1 % topical cream 1 applic topical QDAY 1 08/13/23 Unknown History nitrofurantoin 100 mg capsule 100 mg PO BID 06/13/24 U nknown History Allergy/AdvReac Type Severity Reaction Status Date / Time hydromorphone Allergy Severe Anaphylaxis Verified 09/20/24 17:49 tramadol Allergy Severe Anaphylaxis Verified 09/20/24 17:49 amiodarone Allergy Intermediate Swelling Verified 09/20/24 17:49 Marienthal And Derivatives Allergy Intermediate Hives Verified 09/20/24 17:49 morphine Allergy Intermediate confusion Verified 09/20/24 17:49 moxifloxacin Allergy Intermediate Shortness Verified 09/20/24 17:49 of breath nabumetone Allergy Intermediate damaged Verified 09/20/24 17:49 kidney penicillin G Allergy Intermediate TURNS BLUE Verified 09/20/24 17:49 propoxyphene Allergy Intermediate PT UNSURE Verified 09/20/24 17:49 OF REACTION amlodipine Allergy Mild Abd Verified 09/20/24 17:49 cramps/diarrhea desloratadine Allergy Mild headache Verified 09/20/24 17:49 glutamine (From Airborne Allergy Mild Itching Verified 09/20/24 17:49 (ascorbate sodium)) herbal complex no.124 (From Allergy Mild Itching Verified 09/20/24 17:49 Airborne (ascorbate sodium)) hydrocodone (From Edon) Allergy Mild dystonia Verified 09/20/24 17:49 lysine HCl (From Airborne Allergy Mild Itching Verified 09/20/24 17:49 (ascorbate sodium)) multivitamin with minerals Allergy Mild Itching Verified 09/20/24 17:49 (From Airborne (ascorbate sodium)) pravastatin Allergy Unknown unknown Verified 09/20/24 17:49 rosuvastatin (From Crestor) Allergy Unknown myalgias Verified 09/20/24 17:49 simvastatin Allergy Unknown unknown Verified 09/20/24 17:49 escitalopram Allergy Other Verified 09/20/24 17:49 hydrochlorothiazide Allergy Other Verified 09/20/24 17:49 Eibgsxp-WLS-LiU Reductase AdvReac Severe myalgias Verified 09/20/24 17:49 Inhibitor (Xxdsnnr-Nfu-Qkt Reductase Inhibitor) amoxicillin (From Augmentin) AdvReac Other Verified 09/20/24 17:49 clavulanic acid (From AdvReac Other Verified 09/20/24 17:49 Augmentin) codeine AdvReac Nausea Verified 09/20/24 17:49 naproxen (From Naprosyn) AdvReac Nausea Verified 09/20/24 17:49 oseltamivir (From Tamiflu) AdvReac HALLUCINATI Verified 09/20/24 17:49 ONS Family History Mother Aortic stenosis Presence of permanent cardiac pacemaker Surgical History History of herniorrhaphy Status post ORIF of fracture of ankle History of tonsillectomy History of cholecystectomy Social History household members: spouse Smoking Status: Former smoker alcohol intake: never substance use type: does not use caffeine: Yes Type: coffee Number of servings: 3 ROS ROS ED ROS Narrative Constitutional: Denies fevers, chills, headaches, lightness, dizziness Eyes: Denies change in vision double vision blurry vision Cardiovascular: Denies chest pain or palpitations Respiratory: Denies coughing wheezing shortness of breath Abdomen: Complains of constipation and diarrhea as well as abdominal pain as noted above : Denies urinary symptoms Neurological: Denies numbness, weakness, tingling Musculoskeletal: Denies back pain Skin: Denies rashes or lesions EXAM Physical Exam Narrative Exam Narrative: General: Patient lying in bed rest comfortably did not appear to be acute distress Head: Atraumatic, normocephalic Eyes: PERRL bilateral, EOMI bilateral, no conjunctival injection noted Neck: Soft, supple, trachea midline Cardiovascular: Regular rate and rhythm no murmurs gallops rubs are noted Respiratory: Clear to auscultation bilaterally no rales rhonchi or wheezes noted Abdomen: Soft, nondistended, diffuse tenderness palpation no rebound or guardingon exam Extremities: +5/5 strength noted in the bilateral per lower extremity, radial pulses +2/4 in the bilateral extremities, no pedal edema on exam Neurological: Patient follow commands though she was at [facility] year [id number] Skin: Warm, dry, intact no rashes or lesions noted Const Vital Signs: 09/20/24 17:49 09/20/24 19:04 09/20/24 21:01 Temperature 98.2 F 97.5 F L Temperature Source Oral Oral Pulse Rate 74 74 Respiratory Rate 14 19 H Respiratory Effort Normal Non-Labored Respiratory Pattern Normal Blood Pressure 140/68 H 128/54 H Blood Pressure Mean 92 78 Pulse Ox 98 95 Oxygen Delivery Method Room Air Room Air MDM MDM MDM Narrative Medical decision making narrative: Patient is a 79-year-old female who presented to the emerged part with a chief complaint of constipation, diarrhea, abdominal pain and concern for blood glucose being elevated. On the differential diagnose includes but limited to pancreatitis, appendicitis, bowel obstruction, UTI. Once workup is obtained reviewed she will be reevaluated. Patient's CBC was reviewed showed no evidence leukocytosis white blood count noted be 9.4, he was 13.8, platelet count was noted be 188. Patient sodium was noted 130, potassium normal 4.1, creatinine was 0.86. Patient's AST and ALT are22 and 17 respectively with a normal total bilirubin of 1.02. Patient lipase was noted be 12, urinalysis showed 500 leukocyte esterase 25-50 white cells withno bacteria she does not have any urinary symptoms this will be sent for culture. Patient CT abdomen pelvis with IV contrast showed fluid-filled prominent loops of small and large bowel no wall thickening or adjacent stranding is demonstrated. Differentials would include ileus versus enteritis. Patient was given oral challenge here in the emergency department and she tolerated this well without any vomiting. She was advised to continue supportive care with plenty of fluid hydration. She was advised to follow-up with her doctor in outpatient setting and return with worsening symptoms or any other concerns. She is agreeable this plan all question concerns answered she was discharged home in stable condition. Lab Data Labs: Laboratory Results - last 24 hr 09/20/24 09/20/24 19:10 20:01 WBC 9.4 RBC 4.63 Hgb 13.8 Hct 41.4 MCV 89.4 MCH 29.8 MCHC 33.3 RDW Std Deviation 41.9 RDW Coeff of Madalyn 12.8 Plt Count 188 MPV 12.6 H Immature Gran % (Auto) 0.200 Neut % (Auto) 90.2 H Lymph % (Auto) 3.7 L [place] % (Auto) 4.5 Eos % (Auto) 1.2 Baso % (Auto) 0.2 Absolute Neuts (auto) 8.5 H Absolute Lymphs (auto) 0.35 L Nucleated RBC % 0 Sodium 138 Potassium 4.1 Chloride 101 Carbon Dioxide 22.7 Anion Gap 14 BUN 28 H Creatinine 0.86 Est GFR (MDRD) Non-Af 69 BUN/Creatinine Ratio 32.4 H Glucose 153 H Calcium 9.1 Total Bilirubin 1.02 AST 22 ALT 17 Alkaline Phosphatase 78 Total Protein 6.7 Albumin 3.9 Globulin 2.9 Albumin/Globulin Ratio 1.3 Lipase 12 L Urine Color Yellow Urine Clarity Sl. Cloudy Urine pH 6.0 Ur Specific [place] 1.025 Urine Protein 30 H Urine Glucose (UA) Normal Urine Ketones 5 H Urine Occult Blood Negative Urine Nitrite Negative Urine Bilirubin 1 H Urine Urobilinogen Normal Ur Leukocyte Esterase 500 H Urine RBC 0 SEEN Urine WBC 25-50 SEEN Ur Squamous Epith Cells 0-5 SEEN Amorphous Sediment 1+ URATE Urine Bacteria 0 SEEN Urine Mucus 0 SEEN POC Glucose 128 H Radiography Diagnostic Testing: Clinical Impression(s) from Imaging Studies Abdomen/Pelvis CT 09/20/24 20:24 IMPRESSION: Fluid-filled prominent loops of small and large bowel, no wall thickening or adjacent stranding is demonstrated. Differentials would include ileus versus enteritis. Please see other nonacute findings as described above. One or more dose reduction techniques were used (e.g., Automated exposure control, adjustment of the mA and/or kV according to patient size, use of iterative reconstruction technique). Reading Location: [facility] Discharge Plan Triage Chief Complaint: General Illness ED Provider: Lars Dahl Dx/Rx/DC Orders Clinical Impression: Diarrhea, Enteritis Prescriptions: No Action aspirin 81 mg tablet,delayed release (DR/EC) 81 mg PO DAILY Patient Comments: only takes sometimes cholecalciferol (vitamin D3) 1,250 mcg (50,000 unit) capsule 1,250 mcg PO QWEEK furosemide 20 mg tablet 20 mg PO DAILY PRN (Reason: water pill) insulin lispro 100 unit/mL solution 6 unit subcut TIDCM Protocol: 4. Sliding Scale Insulin High-Med Dosing Condition: 150-199 mg/dl = 2 units Condition: 200-259 mg/dl = 4 units Condition: 260-324 mg/dl = 6 units Condition: 325-374 mg/dl = 8 units Condition: 375-409 mg/dl = 10 units Condition: 410-449 mg/dl = 11 units Condition: Greater than 449 call physician Protocol Text: - Use for Total Daily Dose of Insulin 56-80 units - Patient who are insulin resistant or septic HIGH MEDIUM DOSING ALGORITHM Patient Comments: INJECT 3 TO 10 UNITS SUBCUTANEOUSLY BEFORE MEALS DIRECTED budesonide-formoterol 160-4.5 mcg/actuation HFA aerosol inhaler 2 puff inhalation BID omeprazole magnesium [Prilosec OTC] 20 mg tablet,delayed release (DR/EC) 20 mg PO DAILY mometasone 0.1 % cream 1 applic topical QDAY benzonatate 100 mg capsule 100 mg PO TID nitrofurantoin 100 mg capsule 100 mg PO BID Rx Instructions: must administer with a meal/food ramipril 10 MG capsule 10 mg PO BID Patient Comments: TAKE 1 CAPSULE BY MOUTH TWICE DAILY zolpidem 5 mg Tablet 2.5 mg PO QHS PRN (Reason: Insomnia) metoprolol tartrate 50 mg tablet 25 mg PO Q12H Patient Comments: takes half tablet in morning and night amlodipine 10 mg tablet 5 mg PO DAILY Patient Comments: takes half tablet/day (DME) OneTouch Ultra Test Strip MISCELLANEOUS Patient Comments: [NO ORIGINAL SIG] insulin glargine [Lantus Solostar U-100 Insulin] 100 unit/mL (3 mL) insulin pen 20 unit subcut QHS Rx Instructions: 20-26u Primary Care Provider: Octavio Reza Referrals: Octavio Reza MD [Primary Care Provider] - Activity Restrictions/Additional Instructions: Follow-up with your doctor in outpatient setting. Return with worsening symptoms or any concerns. Your CT scan did not show anything surgical going on. Blood work was largely normal. Return with worsening symptoms or other concerns. Follow-up on urine culture with your primary care physician Print Language: Gibraltarian Disposition Disposition: Home, Self Care What to do if you have Problems For any increased pain, shortness of breath, bleeding, nausea or vomiting, chestpain, or any unexpected problems, contact your Primary Care Provider. Call [facility] ([phone]) or report to the closest Emergency Room. Call 911 if necessary. 09/20/246 <Electronically signed by Lars Dahl DO> Cosigner Signature (if applicable): CC: Dr. Octavio Reza MD ~ Signed [facility] Work Phone: 1(154) 156-669002-27-2025 Telephone encounter Note* Telephone Encounter - Tierney Sun RN - 09/13/2024 2:55 AM EST Spouse calling regarding blood sugar 271 and wants to know what Insulin to give. Conferenced to [facility] [[phone] ] to speak with provider city distribution clerk for Renteta Mcgee CNP - Endocrinology. [facility]02-27-2025 Miscellaneous Notes* Telephone Encounter - Tierney Sun RN - 09/13/2024 2:55 AM EST Spouse calling regarding blood sugar 271 and wants to know what Insulin to give. Conferenced to [facility] [[phone] ] to speak with provider city distribution clerk for Renetta Mcgee CNP - Endocrinology. documented in this encounterWadsworth-[facility]02-[facility] Telephone encounter Note * Telephone Encounter - Charis Lucas RPh - 09/11/2024 3:55 PM EST Called and spoke with patient's spouse, Hayden. States patient's BGs came back down after yesterday afternoon. States she ate some avocado and thinks this may have spike it. Provided the following readings after yesterday afternoon's call: Blood Glucose Log: Date Fasting AM Before Lunch Before Dinner 2 hr PP Bedtime 09/11/2024 163 120 09/10/2024 193 181 166 Advised patient/caregiver to contact PharmD with any other prolonged hypoglycemia. Patient scheduled for PharmD f/up on 11/06/24. Charis Lucas PharmD, MELISA Primary Care Clinical Global Sales Manager [facility] Work Phone: [phone] 774-172002-25-2025 Miscellaneous Notes* Telephone Encounter - Charis Lucas RPh - 09/11/2024 3:55 PM EST Called and spoke with patient's spouse, Hayden. States patient's BGs came back down after yesterday afternoon. States she ate some avocado and thinks this may have spike it. Provided the following readings after yesterday afternoon's call: Blood Glucose Log: Date Fasting AM Before Lunch Before Dinner 2 hr PP Bedtime 09/11/2024 163 120 09/10/2024 193 181 166 Advised patient/caregiver to contact PharmD with any other prolonged hypoglycemia. Patient scheduled for PharmD f/up on 11/06/24. Charis Lucas PharmD, MELISA Primary Care Clinical Global Sales Manager * Telephone Encounter - Darlene Mena RN - 09/10/2024 4:13 PM EST Patient calls and is worried about blood sugars. Patient reports the following blood sugars: 1:30 PM- 117 3:40 PM- 229 4:00 PM- 256 4:05 PM- 231 Patient states that she has not eat anything abnormal. Patient worried since blood sugars seem elevated. Patient will take the short acting 5 units with sliding scale at dinner time. Patient's should be home soon to assist her. Please review and advise, Darlene Mena RN documented in this encounterWadsworth-[facility]02-24-2025 Telephone encounter Note * Telephone Encounter - Darlene Mena RN - 09/10/2024 4:13 PM EST Patient calls and is worried about blood sugars. Patient reports the following blood sugars: 1:30 PM- 117 3:40 PM- 229 4:00 PM- 256 4:05 PM- 231 Patient states that she has not eat anything abnormal. Patient worried since blood sugars seem elevated. Patient will take the short acting 5 units with sliding scale at dinner time. Patient's should be home soon to assist her. Please review and advise, Darlene Mena RN [facility]02-24-2025 History of Present illness Narrative* Charis Lucas [facility] - 09/10/2024 9:00 AM EST Primary Care Pharmacy Visit CC (Reason for Consult): (E10.8) 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) (primary encounter diagnosis) Goal(s): A1c <8% Last Collaborating Provider Visit: 05/23/24 with Marcela Mcgee, FABIO Attila Kidd is a 79 year old female presenting for follow up visit telephone call. Patient consents to pharmacy collaborative practice agreement. Last Pharmacy Visit: 07/31/24 HPI: On speaker phone with patient and patient's spouse, Hayden Reports doing well States BGs seem more stable lately Reports she has been losing a little weight lately Asked again about appropriate time to take basal insulin at nighttime (I.e. when not to take it based on blood sugar reading) Current DM Medications: Lantus 22 units once daily Insulin aspart 3 units with breakfast, 4 units with lunch, 5 units with dinner + SS#1 Diet Denies any recent changes GLYCEMIC CONTROL: Glucometer present at visit: Yes Hypoglycemia: No SMBGS (Fingersticks) Date Fasting AM Insulin Dose 2 hr PP Before Lunch Insulin Dose 2 hr PP Before Dinner insulin 2 hr PP Bedtime Basal insulin 09/10 140 3 165 09/09 74* 95 3 75* 131 145 4 138 171 6 202 22 09/08 153 4 214 6 181 151 154 6 177 149 22 09/07 199 4 197 232 7 154 93 139 5 164 158 22 09/06 192 4 196 5 193 170 152 6 176 139 22 09/05 131 3 117 136 4 148 191 6 223 24 09/04 157 3 122 123 134 4 167 224 7 228 24 09/03 99* 130 3 127 4 114 5 87 133 154 22 09/02 180 4 159 145 5 141 167 165 5 110 113 158 22 AVG 140 138 161 161 156 152 161 *ate a couple of spoonful of yogurt Past medical history reviewed. ALLERGIES Allergen Reactions Hctz [Amiloride-Hyd* Other: See Comments Rapid heart beat, nausea, light eaded. (lasted about 12 hours after first dose) Oseltamivir Mental Status Change hallucinations Doxycycline GI Upset Escitalopram Intolerance Fatigued after just a half pill dose. Did not want to take anymore. Lysine Itching Naprosyn [Naproxen] GI Upset Nausea Kupdrym-Ttd-Yly Red* Myalgia Tylenol-Codeine #3 * Vomiting Ventolin [Albuterol* GI Upset, Vomiting Current Outpatient Medications Medication Sig Dispense Refill blood sugar diagnostic (BLOOD GLUCOSE TEST) test strip Test blood sugar(s) 8 times daily--MedicallyNecessary for labile blood sugars (highs and lows). Dx: Other DM Code E10.8, E11.610 Insulin: Yes 300 Strip 11 benzonatate (TESSALON PERLES) 100 mg capsule Take 1 capsule by mouth three times a day as needed for cough. 21 capsule 0 insulin glargine (LANTUS SOLOSTAR U-100 INSULIN) 100 unit/mL (3 mL) Inject 22 units once daily zolpidem (AMBIEN) 5 mg tablet Take 0.5-1 tablets by mouth at bedtime as needed for up to 90 days. Needs larger pill dispensed to cut in half. Patient should start on July 09, 2024. 30 tablet 2 albuterol HFA (PROVENTIL HFA, VENTOLIN HFA) 90 mcg/actuation inhaler Inhale 2 Puffs as instructed four times a day as needed. FOR WHEEZING AND SHORTNESS OF BREATH. 1 Each 1 amLODIPine (NORVASC) 10 mg tablet Take 0.5 tablets by mouth once daily. 90 tablet 3 metoprolol tartrate, short acting, (LOPRESSOR) 50 mg tablet Take 1/2 tablet by mouth twice a day 90tablet 3 ramipril (ALTACE) 10 mg capsule Take 1 capsule by mouth two times a day. 180 capsule 3 SYMBICORT 160-4.5 mcg/actuation inhaler Inhale 2 Puffs as instructed two times a day. 11 g 5 Chlorhexidine Gluconate (PERIDEX) 0.12 % solution Use 15 mL as instructed two times a day. insulin aspart U-100 (NOVOLOG U-100 INSULIN ASPART) 100 unit/mL Inject 3 units with breakfast, 4 units with lunch, 5 units dinner. PLUS SS#1 (1 units for every 50 over 150 PRE MEAL blood sugar) TDD 50 units daily TYPE I DIABETES, insulin dependent, E10.65 20 mL 3 glucagon (GVOKE HYPOPEN 1-PACK) 1 mg/0.2 mL auto-injector Inject 1 mg subcutaneously as needed. 0.2mL 3 cholecalciferol, Vitamin D3, (VITAMIN D3) 1,250 mcg (50,000 unit) cap capsule Take 1 capsule by mouth one time a week. 12 capsule 4 aspirin, enteric coated (ASPIRIN, ENTERIC COATED) 81 mg EC tablet Take 1 tablet by mouth two times a day. (Patient taking differently: Take 81 mg by mouth once daily.) furosemide (LASIX) 20 mg tablet Take 1 tablet by mouth once daily as needed. (Patient taking differently: Take 20 mg by mouth once daily as needed (edema).) 90 tablet 3 mometasone (ELOCON) 0.1 % cream Apply to affected area once daily as needed (for scalp psoriasis). For 14 days. Treat for recurrences. Apply at bedtime then wash off in the morning 45 g 1 flash glucose sensor (FREESTYLE RAISSA 2 SENSOR) kit Apply new sensor every fourteen (14) days to upper arm. (Patient not taking: Reported on 05/23/2024) 6 Each 4 Insulin [place], Disposable, (BD ULTRA-FINE FADY PEN NEEDLE) 32 gauge x 32 Use one needle for each dose. 1-2 /day. 100 Each 11 COMPOUNDED PRESCRIPTION Bi-PAP nose pads. (G47.33) THAIS treated with BiPAP 2 Device 1 ibuprofen 200 mg tablet Take 1-2 tablets by mouth four times daily as needed (Take with food.). --currently only needing 1 pill twice daily to help with cough (Patient taking differently: Take 200-400 mg by mouth four times a day as needed (Take with food.).) No current facility-administered medications for this visit. Pill bottles are not present. Adherence: denies missed doses. Rx coverage: Payor: [employer] MEDICARE / Plan: AET MEDICARE PPO / Product Type: PPO / Medications affordable? Yes EXAM: There were no vitals taken for this visit. Last 3 Encounter BP Readings: Date: BP: 07/03/2024 132/73[bp average[ 06/11/2024 124/78 05/23/2024 138/72 Wt: 137.8 kg (303 lb 12.7 oz) BMI: 44.22 kg/(m^2) LABS: Lab Results Component Value Date HBA1C 7.1 08/20/2024 HBA1C 6.9 05/23/2024 HBA1C 7.7 12/07/2023 HBA1C 7.7 09/01/2023 HBA1C 7.8 09/02/2021 HBA1C 7.4 05/04/2021 HBA1C 8.4 01/06/2021 Glucose 149 08/20/2024 BUN 22 08/20/2024 Creatinine, Whole Blood (iSTAT) 0.71 08/20/2024 Sodium 139 08/20/2024 Potassium 4.1 08/20/2024 Chloride 103 08/20/2024 CO2 27 08/20/2024 Protein, Total 7.1 08/20/2024 Albumin 4.2 08/20/2024 Calcium 9.8 08/20/2024 Alkaline Phosphatase 83 08/20/2024 Bilirubin, Total 1.0 08/20/2024 AST 18 08/20/2024 ALT 15 08/20/2024 Lab Results Component Value Date CHOL 197 08/20/2024 CHOL 175 01/27/2024 CHOL 180 05/04/2021 LDL 120 08/20/2024 LDL 105 05/04/2021 HDL 59 08/20/2024 HDL 62 01/27/2024 HDL 58 05/04/2021 TG 92 08/20/2024 TG 77 01/27/2024 TG 84 05/04/2021 Albumin/Creat Ratio (mg/g) Date Value 09/02/2023 <15 eGFR-All Other Races (.) Date Value 09/11/2021 >60 Estimated Glomerular Filtration Rate (mL/min/1.73m ) Date Value 08/20/2024 87 ASSESSMENT/PLAN: 1. 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 Overdue Diabetes Health Maintenance: Health Maintenance - Diabetes Topic Date Due Diabetic Foot Exam 10/27/2021 Follow Up: Next PCP visit: 10/15/24 Next endo visit: 11/28/24 Next PharmD visit: 11/06/24 Charis Lucas, PharmD, BCACP Primary Care Clinical Global Sales Manager documented in this encounterWadsworth-[facility]02-24-2025 NoteW[facility]02-[facility] Telephone encounter Note* Telephone Encounter - Parris Eckert RN - 09/06/2024 7:11 PM EST Pt called and is notified of providers results and instructions. Pt voices understanding. Parris Eckert RN [facility]02-20-2025 Miscellaneous Notes* Telephone Encounter - Parris Eckert RN - 09/06/2024 7:11 PM EST Pt called and is notified of providers results and instructions. Pt voices understanding. Parris Eckert RN * Telephone Encounter - Octavio Reza MD - 09/06/2024 5:33 PM EST Noted LDL up to 120 but has been under 100 before. Since cannot tolerate statins, okay to focus on diet and staying as active as able to increase HDL as much as able. She is almost over 60--in the last, had HDL as high as 73. Increase omega 3 oils--marine fish, edamame, ground flax seed and walnuts. * Telephone Encounter - Asmita Tapia RN - 09/06/2024 4:32 PM EST Patient had recent lab work completed , as ordered by Endo. LDL level slightly elevated. Pt reportsshe fasted for this test, despite it being a non-fasting test. Pt states she is concerned about an elevated LDL level and asking provider if she should take medication for this, however, she states she can't do statins due to her high sensitivity to them. NOV: 10/15/24. Please advise patient. Asmita Tapia RN documented in this encounterWadsworth-Rittman Hospital02-20-2025 Telephone encounter Note * Telephone Encounter - Octavio Reza MD - 09/06/2024 5:33 PM EST Noted LDL up to 120 but has been under 100 before. Since cannot tolerate statins, okay to focus on diet and staying as active as able to increase HDL as much as able. She is almost over 60--in the last, had HDL as high as 73. Increase omega 3 oils--marine fish, edamame, ground flax seed and walnuts. [facility]02-20-2025 Telephone encounter Note* Telephone Encounter - Asmita Tapia RN - 09/06/2024 4:32 PM EST Patient had recent lab work completed , as ordered by Endo. LDL level slightly elevated. Pt reportsshe fasted for this test, despite it being a non-fasting test. Pt states she is concerned about an elevated LDL level and asking provider if she should take medication for this, however, she states she can't do statins due to her high sensitivity to them. NOV: 10/15/24. Please advise patient. Asmita Tapia RN [facility]02-19-2025 Telephone encounter Note* Telephone Encounter - Mel Morin RN - 09/05/2024 2:32 PM EST Patient called back and the below results were given. Mel Morin RN [facility]02-19-2025 Miscellaneous Notes* Telephone Encounter - Mel Morin RN - 09/05/2024 2:32 PM EST Patient called back and the below results were given. Mel Morin RN * Telephone Encounter - Norma Devlin RN - 09/05/2024 2:18 PM EST Call placed to Pt - unable to LM, voicemail box full. If Pt returns call to office, please relay the below notation per Renetta Mcgee CNP to her. Norma Devlin RN September 05, 2024 2:18 PM * Telephone Encounter - Renetta Mcgee APRN.CNP - 09/05/2024 7:42 AM EST Please call the patient. Overall her labs are very good. A1C was 7.1 % and well controlled Cholesterol normal, however, LDL slightly elevated BUN very slightly elevated, make sure to drink 150 oz of water daily UNLESS on fluid restrictions Remainder of Labs WNL * Telephone Encounter - Trudy Wang MA - 09/04/2024 3:15 PM EST Patient called in asking for lab results that were completed at the beginning of August. Please call patient back at [phone]. She does not use MyChart routinely. documented in this encounterWadsworth-Rittman [facility]02-19-2025 Telephone encounter Note * Telephone Encounter - Norma Devlin RN - 09/05/2024 2:18 PM EST Call placed to Pt - unable to LM, voicemail box full. If Pt returns call to office, please relay the below notation per Renetta Mcgee CNP to her. Norma Devlin RN September 05, 2024 2:18 PM [facility]02-19-2025 Telephone encounter Note* Telephone Encounter - Renetta Mcgee APRN.CNP - 09/05/2024 7:42 AM EST Please call the patient. Overall her labs are very good. A1C was 7.1 % and well controlled Cholesterol normal, however, LDL slightly elevated BUN very slightly elevated, make sure to drink 150 oz of water daily UNLESS on fluid restrictions Remainder of Labs WNL [facility]02-18-2025 Telephone encounter Note* Telephone Encounter - Trudy Wang MA - 09/04/2024 3:15 PM EST Patient called in asking for lab results that were completed at the beginning of August. Please call patient back at [phone]. She does not use MyChart routinely. [facility]02-07-2025 Telephone encounter Note* Telephone Encounter - Octavio Reza MD - 08/24/2024 8:58 AM EST Reviewed with spouse. Sent pended RX. Discussed that gives logs to Marcela and she works with [employer]is Day routinely. Discussed doing log for a month. Not sure if will need PA every month or just till deductible met. [facility]02-03-2025 Telephone encounter Note* Telephone Encounter - Jeannine Mcelroy MA - 08/20/2024 4:24 PM EST Pharmacy dispense shows 200 test strips dispensed in July. Called [facility] and they advised PA was valid till 09/25/2024. Called spouse who advised rx for 200 strips was $230. Called fidel tolook into this if going through with insurance or if spouse paid out pocket. Fidel advised is covered but until deductible met has to pay for strips. Spouse was called again and aware Leave TE so we can re-complete next month Jeannine Mcelroy MA [facility]02-03-2025 Telephone encounter Note* Telephone Encounter - Rakel Agosto LPN - 08/20/2024 8:27 AM EST is calling to check on status of prior auth. would like a call back. Rakel Agosto LPN [facility]01-31-2025 NoteWex[facility] Center01-31-2025 History of Present illness Narrative* Phoebe Carrion MA - 08/17/2024 8:50 AM EST POPULATION HEALTH NAVIGATION OUTREACH Action/FYI Patient is on [employer] High Risk list for below and needs appointment to address: DTaP,Tdap,Td Vaccine(1 - Tdap) RSV Vaccine(1 - 1-dose 75+ series) Diabetic Foot Exam BP Controlled (<130/80) Dilated Retinal Exam Advance Directive Discussion Urine Albumin:Creatinine Ratio Hemoglobin A1C (%) Date Value 09/02/2021 7.8 Hemoglobin A1C (POCT) (%) Date Value 05/23/2024 6.9 Patient due for: Controlling Blood Pressure Diabetic Eye Exam JUAN C Callahan Active: Yes Patient will walk in to lab next week and have compteted Upcoming PCP appt. Noted to address due care gaps Eye exam done outside [facility] in 2023 - found in scanned docs - updated Reason for Outreach Care Gap/HCC or Scheduling Wellness Visits Care Gaps due: LISAJodi Patient Contacted: Spoke to patient/parent/or legal guardian Patient identified by name and : Yes Care Gap/HCC/Scheduling Wellness actions taken: Patient declined: Patient will contact office directly to schedule Navigation Signature: Phoebe Carrion MA August 17, 2024 8:51 AM documented in this encounterWadsworth-[facility]01-28-2025 Telephone encounter Note * Telephone Encounter - Vibha Peña LPN - 08/14/2024 11:00 AM EST Form completed and faxed 08/10/24. [facility]01-23-2025 Telephone encounter Note* Telephone Encounter - Pattie Giles RN - 08/09/2024 2:22 PM EST Patient calls for constipation. Nurse triage recommends home care. Reviewed care advice and OTC medication with verbalized understanding. Patient is going to try OTC Miralax and if not helpful will call back. Reason for Disposition MILD constipation Answer Assessment - Initial Assessment Questions 1. STOOL PATTERN OR FREQUENCY: Normal bowel pattern is daily. Since changing diet patient hasn't had a normal BM in two days and then two days before that just small hard. 2. STRAINING: Yes 3. ONSET: Four days ago 5. RECTAL PAIN: No 6. BM COMPOSITION: Hard 7. BLOOD ON STOOLS: No 8. CHRONIC CONSTIPATION: Constipation in the past. None recently. Patient reports Ex-lax used to dothe trick. 8. CHANGES IN DIET OR HYDRATION: Patient reports good hydration. 6-8 bottles of water with other beverages. Diet recently changed to two eggs in the AM with [place] toast. Salads for lunch and dinner with fish or chicken. Sometimes green beans or asparagus instead of lettuce. 9. MEDICINES: No new medications 10. LAXATIVES: Not currently 11. ACTIVITY: No change in activity level. 12. CAUSE: Patient believes from changing diet. 13. MEDICAL HISTORY: No history of hemorrhoids, rectal fissures, rectal surgery, or rectal abscess 14. OTHER SYMPTOMS: Patient reports feeling pressure and full like needs to have a BM but no abdomen pain, bloating, fever, vomiting Protocols used: [id number] [facility]01-23-2025 Miscellaneous Notes* Telephone Encounter - Pattie Giles RN - 08/09/2024 2:22 PM EST Patient calls for constipation. Nurse triage recommends home care. Reviewed care advice and OTC medication with verbalized understanding. Patient is going to try OTC Miralax and if not helpful will call back. Reason for Disposition MILD constipation Answer Assessment - Initial Assessment Questions 1. STOOL PATTERN OR FREQUENCY: Normal bowel pattern is daily. Since changing diet patient hasn't had a normal BM in two days and then two days before that just small hard. 2. STRAINING: Yes 3. ONSET: Four days ago 5. RECTAL PAIN: No 6. BM COMPOSITION: Hard 7. BLOOD ON STOOLS: No 8. CHRONIC CONSTIPATION: Constipation in the past. None recently. Patient reports Ex-lax used to dothe trick. 8. CHANGES IN DIET OR HYDRATION: Patient reports good hydration. 6-8 bottles of water with other beverages. Diet recently changed to two eggs in the AM with [place] toast. Salads for lunch and dinner with fish or chicken. Sometimes green beans or asparagus instead of lettuce. 9. MEDICINES: No new medications 10. LAXATIVES: Not currently 11. ACTIVITY: No change in activity level. 12. CAUSE: Patient believes from changing diet. 13. MEDICAL HISTORY: No history of hemorrhoids, rectal fissures, rectal surgery, or rectal abscess 14. OTHER SYMPTOMS: Patient reports feeling pressure and full like needs to have a BM but no abdomen pain, bloating, fever, vomiting Protocols used: [id number] documented in this encounterWadsworth-Rittman [facility]01-22-2025 Telephone encounter Note * Telephone Encounter - Vibha Peña LPN - 08/08/2024 1:07 PM EST Unable to complete electronically. Previously approved from 09/26/23 to 09/25/24. High utilization for rec'd from [facility]. To pcp to sign. [facility]01-22-2025 Telephone encounter Note* Telephone Encounter - Sahara Moreno RN - 08/08/2024 11:47 AM EST Prior Authorization Documentation Prior authorization requested for the following medication: Medication: Blood sugar test strips - test 8 times a day- medically necessary for labile blood sugars (highs and lows) Provider: [place] Name: [facility] [employer] Phone number: [phone] Patient ID number: [id number] [facility]acy Name[facility] Telephone number: [phone] [facility]01-15-2025 Telephone encounter Note* Telephone Encounter - Pattie Giles RN - 08/01/2024 3:37 PM EST Patient calls to report that she made chicken broth with vegetable and let it set on the counter for 2-3 hours and then ate it. Patient not wanting an appointment but requesting care advice.as she isfeeling a little queasy in the stomach. Denies any vomiting, diarrhea, or stomach pain. Reviewed with patient to push fluids/water. Start diet with bland foods BRAT diet, crackers, pasta,or mashed potatoes and advance as tolerated. Patient aware to call back if any further symptoms occur or if vomiting starts and isn't able to keep anything down. Nothing further needed at this time. Closing TE. Pattie Giles RN [facility]01-15-2025 Miscellaneous Notes* Telephone Encounter - Pattie Giles RN - 08/01/2024 3:37 PM EST Patient calls to report that she made chicken broth with vegetable and let it set on the counter for 2-3 hours and then ate it. Patient not wanting an appointment but requesting care advice.as she isfeeling a little queasy in the stomach. Denies any vomiting, diarrhea, or stomach pain. Reviewed with patient to push fluids/water. Start diet with bland foods BRAT diet, crackers, pasta,or mashed potatoes and advance as tolerated. Patient aware to call back if any further symptoms occur or if vomiting starts and isn't able to keep anything down. Nothing further needed at this time. Closing TE. 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 Patient consents to pharmacy collaborative practice agreement. Last Pharmacy Visit: 06/19/24 - plan to continue Lantus at 22 units daily Interim Events: - 07/03/24 ABIMBOLA visit (with Lydia Grande) - no med changes HPI: On speaker phone with patient and patient's spouse, Hayden States BGs have been pretty good lately, some days higher than others. States when she starts the day off with higher readings, she has a hard time bringing them down all day Current DM Medications: Lantus 22 units once daily Insulin aspart 3 units with breakfast, 4 units with lunch, 5 units with dinner + SS#1 Diet Denies any recent changes other than some more sweets around the holidays, now trying to get back on track GLYCEMIC CONTROL: Glucometer present at visit: BG log present Hypoglycemia: Yes, likely due to previous 2 days taking higher dose of Lantus than prescribed *had 2 educational technology specialist cupcakes to bring up BGs felt readings were high all day, felt like her diet affected it that day SMBGS (Fingersticks) Date Fasting AM 2 hr PP Before Lunch 2 hr PP Before Dinner 2 hr PP Bedtime 07/31 103 96* 166/4 165 07/30 154 176/4 193 213/6 200 124 127/5 107 106/22 07/29 231 257/6 239 263/7 210 158 148/5 164/22 07/28 51(yogurt) 201/5 154 135/4 164 178 289/8 278 273 255 185 168 193/22 07/27 153 169/4 211 213/6 201 198/6 180 218/24 07/26 233 245/5 184 177/5 225 267/6 233/24 07/25 173/4 74 179/5 170 182/6 106 108/22 07/24 81(snack) 112/3 147 165 154/5 139 153/6 86 110/22 AVG 162 170 187 176 204 167 165 Past medical history reviewed. ALLERGIES Allergen Reactions Hctz [Amiloride-Hyd* Other: See Comments Rapid heart beat, nausea, light eaded. (lasted about 12 hours after first dose) Oseltamivir Mental Status Change hallucinations Doxycycline GI Upset Escitalopram Intolerance Fatigued after just a half pill dose. Did not want to take anymore. Lysine Itching Naprosyn [Naproxen] GI Upset Nausea Ggrowsm-Xku-Nsi Red* Myalgia Tylenol-Codeine #3 * Vomiting Ventolin [Albuterol* GI Upset, Vomiting Current Outpatient Medications Medication Sig Dispense Refill benzonatate (TESSALON PERLES) 100 mg capsule Take 1 capsule by mouth three times a day as needed for cough. 21 capsule 0 blood sugar diagnostic (BLOOD GLUCOSE TEST) test strip Test blood sugar(s) 8 times daily--MedicallyNecessary for labile blood sugars (highs and lows). Dx: Other DM Code E10.8, E11.610 Insulin: Yes 200 Strip 11 insulin glargine (LANTUS SOLOSTAR U-100 INSULIN) 100 unit/mL (3 mL) Inject 22 units once daily zolpidem (AMBIEN) 5 mg tablet Take 0.5-1 tablets by mouth at bedtime as needed for up to 90 days. Needs larger pill dispensed to cut in half. Patient should start on July 09, 2024. 30 tablet 2 albuterol HFA (PROVENTIL HFA, VENTOLIN HFA) 90 mcg/actuation inhaler Inhale 2 Puffs as instructed four times a day as needed. FOR WHEEZING AND SHORTNESS OF BREATH. 1 Each 1 amLODIPine (NORVASC) 10 mg tablet Take 0.5 tablets by mouth once daily. 90 tablet 3 metoprolol tartrate, short acting, (LOPRESSOR) 50 mg tablet Take 1/2 tablet by mouth twice a day 90tablet 3 ramipril (ALTACE) 10 mg capsule Take 1 capsule by mouth two times a day. 180 capsule 3 SYMBICORT 160-4.5 mcg/actuation inhaler Inhale 2 Puffs as instructed two times a day. 11 g 5 Chlorhexidine Gluconate (PERIDEX) 0.12 % solution Use 15 mL as instructed two times a day. insulin aspart U-100 (NOVOLOG U-100 INSULIN ASPART) 100 unit/mL Inject 3 units with breakfast, 4 units with lunch, 5 units dinner. PLUS SS#1 (1 units for every 50 over 150 PRE MEAL blood sugar) TDD 50 units daily TYPE I DIABETES, insulin dependent, E10.65 20 mL 3 glucagon (GVOKE HYPOPEN 1-PACK) 1 mg/0.2 mL auto-injector Inject 1 mg subcutaneously as needed. 0.2mL 3 cholecalciferol, Vitamin D3, (VITAMIN D3) 1,250 mcg (50,000 unit) cap capsule Take 1 capsule by mouth one time a week. 12 capsule 4 aspirin, enteric coated (ASPIRIN, ENTERIC COATED) 81 mg EC tablet Take 1 tablet by mouth two times a day. (Patient taking differently: Take 81 mg by mouth once daily.) furosemide (LASIX) 20 mg tablet Take 1 tablet by mouth once daily as needed. (Patient taking differently: Take 20 mg by mouth once daily as needed (edema).) 90 tablet 3 mometasone (ELOCON) 0.1 % cream Apply to affected area once daily as needed (for scalp psoriasis). For 14 days. Treat for recurrences. Apply at bedtime then wash off in the morning 45 g 1 flash glucose sensor (ARKeXSTYLE RAISSA 2 SENSOR) kit Apply new sensor every fourteen (14) days to upper arm. (Patient not taking: Reported on 05/23/2024) 6 Each 4 Insulin [place], Disposable, (BD ULTRA-FINE FADY PEN NEEDLE) 32 gauge x /32 Use one needle for each dose. 1-2 /day. 100 Each 11 COMPOUNDED PRESCRIPTION Bi-PAP nose pads. (G47.33) THAIS treated with BiPAP 2 Device 1 ibuprofen 200 mg tablet Take 1-2 tablets by mouth four times daily as needed (Take with food.). --currently only needing 1 pill twice daily to help with cough (Patient taking differently: Take 200-400 mg by mouth four times a day as needed (Take with food.).) No current facility-administered medications for this visit. Pill bottles are not present. Adherence: denies missed doses. Rx coverage: Payor: [employer] MED[employer]ARE / Plan: [employer] MED[employer]ARE PPO / Product Type: PPO / Medications affordable? Yes EXAM: There were no vitals taken for this visit. Last 3 Encounter BP Readings: Date: BP: 07/03/2024 132/73[bp average[ 06/11/2024 124/78 05/23/2024 138/72 Wt: 137.8 kg (303 lb 12.7 oz) BMI: 44.22 kg/(m^2) LABS: Lab Results Component Value Date HBA1C 6.9 05/23/2024 HBA1C 7.7 12/07/2023 HBA1C 7.7 09/01/2023 HBA1C 7.4 05/16/2023 HBA1C 7.8 09/02/2021 HBA1C 7.4 05/04/2021 HBA1C 8.4 01/06/2021 Glucose 114 01/27/2024 BUN 18 01/27/2024 Creatinine, Whole Blood (iSTAT) 0.77 01/27/2024 Sodium 139 01/27/2024 Potassium 4.1 01/27/2024 Chloride 102 01/27/2024 CO2 28 01/27/2024 Protein, Total 6.7 01/27/2024 Albumin 3.9 01/27/2024 Calcium 9.4 01/27/2024 Alkaline Phosphatase 101 01/27/2024 Bilirubin, Total 0.8 01/27/2024 AST 14 01/27/2024 ALT 12 01/27/2024 Lab Results Component Value Date CHOL 175 01/27/2024 CHOL 180 05/04/2021 LDL 98 01/27/2024 LDL 105 05/04/2021 HDL 62 01/27/2024 HDL 58 05/04/2021 TG 77 01/27/2024 TG 84 05/04/2021 Albumin/Creat Ratio (mg/g) Date Value 09/02/2023 <15 eGFR-All Other Races (.) Date Value 09/11/2021 >60 Estimated Glomerular Filtration Rate (mL/min/1.73m ) Date Value 01/27/2024 79 ASSESSMENT/PLAN: 1. 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 Overdue Diabetes Health Maintenance: Health Maintenance - Diabetes Topic Date Due Diabetic Foot Exam 10/27/2021 Dilated Retinal Exam 06/29/2024 Follow Up: Next PCP visit: 10/15/24 Next endo visit: 11/28/24 Next PharmD visit: 09/10/24 Charis Lucas, PharmD, BCACP Primary Care Clinical Global Sales Manager documented in this encounterWadsworth-[facility]01-14-[facility]25 [facility] Telephone encounter Note* Telephone Encounter - Pattie Giles RN - 07/27/2024 2:27 PM EST The patient has been identified by name and date of : Yes Caregiver verified no other encounters exist for this prescription request: Yes Caregiver confirmed with patient/requestor that no other refills are due, in the near future, with this provider at this time: Yes The last office visit in the department: 07/03/2024 Does the patient have a future office visit with this provider/department: 10/15/2024 Requested Prescriptions Pending Prescriptions Disp Refills benzonatate (TESSALON PERLES) 100 mg capsule 21 capsule 0 Sig: Take 1 capsule by mouth three times a day as needed for cough. Patient reports started with a cough yesterday and is requesting tessalon pearls prescription be sent to pharmacy as previously it was very effective. Originally ordered by EC. Patient requests call back at [phone] once sent. Pattie Giles RN July 27, 2024 2:28 PM [facility]01-10-2025 Miscellaneous Notes* Telephone Encounter - Pattie Giles RN - 07/27/2024 2:27 PM EST The patient has been identified by name and date of : Yes Caregiver verified no other encounters exist for this prescription request: Yes Caregiver confirmed with patient/requestor that no other refills are due, in the near future, with this provider at this time: Yes The last office visit in the department: 07/03/2024 Does the patient have a future office visit with this provider/department: 10/15/2024 Requested Prescriptions Pending Prescriptions Disp Refills benzonatate (TESSALON PERLES) 100 mg capsule 21 capsule 0 Sig: Take 1 capsule by mouth three times a day as needed for cough. Patient reports started with a cough yesterday and is requesting tessalon pearls prescription be sent to pharmacy as previously it was very effective. Originally ordered by EC. Patient requests call back at [phone] once sent. Pattie Giles RN July 27, 2024 2:28 PM documented in this encounterWadsworth-[facility]01-02-2025 Telephone encounter Note * Telephone Encounter - Ritika Santos LPN - 07/19/2024 4:01 PM EST Patient and were given providers instructions and verbalized understanding. [facility]01-02-2025 Miscellaneous Notes* Telephone Encounter - Ritika Santos LPN - 07/19/2024 4:01 PM EST Patient and were given providers instructions and verbalized understanding. * Telephone Encounter - Lydia Grande APRN.CNS - 07/19/2024 3:45 PM EST Agree with the home treatment measures noted below and her Insulin Sliding Scale instructions for dinner. She can also walk or other activity to help bring her glucose level down. * Telephone Encounter - Asmita Tapia RN - 07/19/2024 3:25 PM EST Patient is diabetic. Reports she ate foods for lunch that caused her blood sugar to increase. Ate cheeseburger with bun, some cottage cheese and some chips. She is concerned that it will continue to rise and asking for provider to advise her. At 11am blood sugar was 183 and she took 5 units of Aspart insulin. After eating, her blood sugar readings have been: 234, 258 and now 269. She has been drinking cold water to help bring her glucose level down. Asymptomatic. Protocol information shared with patient, as excerpted from protocol: Diabetes - High Blood Dcnfq-WCPRF-RQ TREATMENT : HOME CARE - LIQUIDS: * Drink at least one glass (8 oz; 240 ml) of water per hour for the next 4 hours. * Try to drink 6 to 8 glasses of water each day. * Reason: Drinking enough liquids will help keep you well-hydrated and decrease high blood sugar. -CONTINUE INSULIN and DIABETIC MEDICATIONS -CALL BACK IF: * Blood glucose over 300 mg/dL (16.7 mmol/L), two or more times in a row. * Urine ketones become moderate or large (or more than 1+); if you check blood ketones, blood ketone test is over 1.4 mmol/L * Vomiting lasting over 4 hours or unable to drink any fluids * Rapid breathing occurs * You have more questions * You become worse Patient requesting PCP triad member to review and advise as well today. If possible. Asmita Tapia RN documented in this encounterWadsworth-[facility]01-02-2025 Telephone encounter Note * Telephone Encounter - Lydia Grande APRN.CNS - 07/19/2024 3:45 PM EST Agree with the home treatment measures noted below and her Insulin Sliding Scale instructions for dinner. She can also walk or other activity to help bring her glucose level down. [facility]01-02-2025 Telephone encounter Note* Telephone Encounter - Asmita Tapia RN - 07/19/2024 3:25 PM EST Patient is diabetic. Reports she ate foods for lunch that caused her blood sugar to increase. Ate cheeseburger with bun, some cottage cheese and some chips. She is concerned that it will continue to rise and asking for provider to advise her. At 11am blood sugar was 183 and she took 5 units of Aspart insulin. After eating, her blood sugar readings have been: 234, 258 and now 269. She has been drinking cold water to help bring her glucose level down. Asymptomatic. Protocol information shared with patient, as excerpted from protocol: Diabetes - High Blood Aezme-IHUWA-JV TREATMENT : HOME CARE - LIQUIDS: * Drink at least one glass (8 oz; 240 ml) of water per hour for the next 4 hours. * Try to drink 6 to 8 glasses of water each day. * Reason: Drinking enough liquids will help keep you well-hydrated and decrease high blood sugar. -CONTINUE INSULIN and DIABETIC MEDICATIONS -CALL BACK IF: * Blood glucose over 300 mg/dL (16.7 mmol/L), two or more times in a row. * Urine ketones become moderate or large (or more than 1+); if you check blood ketones, blood ketone test is over 1.4 mmol/L * Vomiting lasting over 4 hours or unable to drink any fluids * Rapid breathing occurs * You have more questions * You become worse Patient requesting PCP triad member to review and advise as well today. If possible. Asmita Tapia, RN [facility]12-30-2024 Telephone encounter Note* Telephone Encounter - Yvette Cohen LPN - 07/16/2024 8:38 AM EST Pt calling for refills. Reviewed meds requested by pt. Epic is showing there are refills at [facility]. Pt believes she is looking at an old bottle. She will check with pharm and call if any problems. Yvette Cohen LPN [facility]12-30-2024 Miscellaneous Notes* Telephone Encounter - Yvette Cohen LPN - 07/16/2024 8:38 AM EST Pt calling for refills. Reviewed meds requested by pt. Epic is showing there are refills at [facility]. Pt believes she is looking at an old bottle. She will check with pharm and call if any problems. Yvette Cohen LPN documented in this encounterWadsworth-R[facility]12-17-2024 Instructions* Patient Instructions* Lydia Grande APRN.CNS - 07/03/2024 3:12 PM EST Continue with your usual blood pressure medications. Check your blood pressure once daily around noon. If your blood pressure is greater than 150/80 take an additional 1/2 tablet of 50 mg metoprolol tartrate documented in this encounterWadsworth-Rittman [facility]12-17-2024 NoteW[facility]12-17-2024 History of Present illness Narrative* Lydia Grande APRN.[employer] - 07/03/2024 2:00 PM EST SUBJECTIVE: DTaP,Tdap,Td Vaccine(1 - Tdap) Never done RSV Vaccine(1 - 1-dose 75+ series) Never done Diabetic Foot Exam due on 10/27/2021 BP Controlled (<130/80) due on 05/11/2022 Dilated Retinal Exam due on 06/29/2024 HPI Attila Kidd is a 78 year old female. PMH [...] Extremities Adverse Reaction to Hmg-Coa Reductase Inhibitor Paroxysmal Svt (Supraventricular Tachycardia) (Hcc) Palpitations Major Depressive Disorder, Recurrent, in Full Remission (Hcc) Nocturnal Hypoxemia Attila Kidd is a 78 year old female who [...] Extremities Adverse Reaction to Hmg-Coa Reductase Inhibitor Paroxysmal Svt (Supraventricular Tachycardia) (Hcc) Palpitations Major Depressive Disorder, Recurrent, in Full Remission (Hcc) Nocturnal Hypoxemia Presents today for [facility] ER visit follow-up. She was seen again in the emergency department on July 02 for hypertension and chest pressure. She reports today that she does not think she really had chest pressure. She had a workup including EKG and chest x-ray which were nonc oncerning. Lab work was unremarkable. No medication changes were made. She was referred to primary care for follow-up. Today notes that she is in her usual state of health. She reports no missed doses of medication on the day she was seen in the ER. She does report change in diet on that day perhaps more salt than usual. HTN: Without report of headache, chest pain, palpitations, dyspnea, peripheral edema, orthopnea, fatigue, and PND. Last 14 Encounter BP Readings: Date: BP: 07/03/2024 132/73[bp average[ 06/11/2024 124/78 05/23/2024 138/72 05/07/2024 140/72 04/18/2024 136/84 03/07/2024 132/82 02/13/2024 130/80 01/02/2024 152/82 12/07/2023 132/70 11/09/2023 132/70 10/31/2023 142/82 09/22/2023 136/68 09/01/2023 144/74 06/23/2023 122/[address] Marin [id number], Dr. Brasher. DIABETES MELLITUS: Without report of excessive thirst or increased frequency of urination, chest pain or dyspnea , numbness, tingling or pain in extremities, new or unusual visual symptoms, low sugar/hypoglycemic reactions, weight loss/gain, lightheadedness/dizziness, and bowel changes/loose stools. . Patient's last HgA1C was Hemoglobin A1C (%) Date Value 12/07/2023 7.7 09/01/2023 7.7 09/02/2021 7.8 05/04/2021 7.4 Hemoglobin A1C (POCT) (%) Date Value 05/23/2024 6.9 ) Review of Systems Respiratory: Negative. Objective BP 132/73 Pulse 67 Resp 16 Wt (!) 137.8 kg (303 lb 12.7 oz) BMI 44.22 kg/m Physical Exam Vitals and nursing note reviewed. Constitutional: Appearance: Normal appearance. HENT: Head: Normocephalic and atraumatic. Mouth/Throat: Lips: [place]. Mouth: Mucous membranes are moist. Eyes: Conjunctiva/sclera: Conjunctivae normal. Cardiovascular: Rate and Rhythm: Normal rate and regular rhythm. Heart sounds: Normal heart sounds. Pulmonary: Effort: Pulmonary effort is normal. Breath sounds: Normal breath sounds. Abdominal: General: Bowel sounds are normal. Palpations: Abdomen is soft. Musculoskeletal: Right hand: Normal capillary refill. Normal pulse. Left hand: Normal capillary refill. Normal pulse. Comments: Bilateral FOs Skin: General: Skin is warm and dry. Neurological: General: No focal deficit present. Mental Status: She is alert and oriented to person, place, and time. ALLERGIES Allergen Reactions Hctz [Amiloride-Hyd* Other: See Comments Rapid heart beat, nausea, light eaded. (lasted about 12 hours after first dose) Oseltamivir Mental Status Change hallucinations Doxycycline GI Upset Escitalopram Intolerance Fatigued after just a half pill dose. Did not want to take anymore. Lysine Itching Naprosyn [Naproxen] GI Upset Nausea Rcliyir-Mpt-Eqs Red* Myalgia Tylenol-Codeine #3 * Vomiting Ventolin [Albuterol* GI Upset, Vomiting Medications blood sugar diagnostic (BLOOD GLUCOSE TEST) test strip Test blood sugar(s) 8 times daily--MedicallyNecessary for labile blood sugars (highs and lows). Dx: Other DM Code E10.8, E11.610 Insulin: Yes insulin glargine (LANTUS SOLOSTAR U-100 INSULIN) 100 unit/mL (3 mL) Inject 22 units once daily [START ON 07/09/2024] zolpidem (AMBIEN) 5 mg tablet Take 0.5-1 tablets by mouth at bedtime as needed for up to 90 days. Needs larger pill dispensed to cut in half. Patient should start on July 09, 2024. albuterol HFA (PROVENTIL HFA, VENTOLIN HFA) 90 mcg/actuation inhaler Inhale 2 Puffs as instructed four times a day as needed. FOR WHEEZING AND SHORTNESS OF BREATH. amLODIPine (NORVASC) 10 mg tablet Take 0.5 tablets by mouth once daily. metoprolol tartrate, short acting, (LOPRESSOR) 50 mg tablet Take 1/2 tablet by mouth twice a day ramipril (ALTACE) 10 mg capsule Take 1 capsule by mouth two times a day. SYMBICORT 160-4.5 mcg/actuation inhaler Inhale 2 Puffs as instructed two times a day. Chlorhexidine Gluconate (PERIDEX) 0.12 % solution Use 15 mL as instructed two times a day. insulin aspart U-100 (NOVOLOG U-100 INSULIN ASPART) 100 unit/mL Inject 3 units with breakfast, 4 units with lunch, 5 units dinner. PLUS SS#1 (1 units for every 50 over 150 PRE MEAL blood sugar) TDD 50 units daily TYPE I DIABETES, insulin dependent, E10.65 glucagon (GVOKE HYPOPEN 1-PACK) 1 mg/0.2 mL auto-injector Inject 1 mg subcutaneously as needed. cholecalciferol, Vitamin D3, (VITAMIN D3) 1,250 mcg (50,000 unit) cap capsule Take 1 capsule by mouth one time a week. aspirin, enteric coated (ASPIRIN, ENTERIC COATED) 81 mg EC tablet Take 1 tablet by mouth two times a day. (Patient taking differently: Take 81 mg by mouth once daily.) furosemide (LASIX) 20 mg tablet Take 1 tablet by mouth once daily as needed. (Patient taking differently: Take 20 mg by mouth once daily as needed (edema).) mometasone (ELOCON) 0.1 % cream Apply to affected area once daily as needed (for scalp psoriasis). For 14 days. Treat for recurrences. Apply at bedtime then wash off in the morning Insulin [place], Disposable, (BD ULTRA-FINE FADY PEN NEEDLE) 32 gauge x 5/32 Use one needle for each dose. 1-2 /day. COMPOUNDED PRESCRIPTION Bi-PAP nose pads. (G47.33) THAIS treated with BiPAP ibuprofen 200 mg tablet Take 1-2 tablets by mouth four times daily as needed (Take with food.). --currently only needing 1 pill twice daily to help with cough (Patient taking differently: Take 200-400 mg by mouth four times a day as needed (Take with food.).) benzonatate (TESSALON PERLES) 100 mg capsule Take 1 capsule by mouth three times a day as needed for cough. (Patient not taking: Reported on 06/11/2024) flash glucose sensor (FREESTYLE RAISSA 2 SENSOR) kit Apply new sensor every fourteen (14) days to upper arm. (Patient not taking: Reported on 05/23/2024) PAST MEDICAL HISTORY Diagnosis Date Adverse reaction [...] 10/12/2006 Rosacea 09/06/2007 Vitamin D deficiency 08/21/2010 Social History Tobacco Use Smoking status: Former Current packs/day: 0.00 Average packs/day: 0.5 packs/day for 20.0 years (10.0 ttl pk-yrs) Types: Cigarettes Start date: 10/21/1978 Quit date: 10/21/1998 Years since quittin.7 Smokeless tobacco: Never Vaping Use Vaping status: Never Used Substance Use Topics Alcohol use: Not Currently Drug use: No ASSESSMENT/PLAN: 1. Essential hypertension - ICD9: 401.9, ICD10: I10 (primary diagnosis) controlled - Continue current medications - Recommend home blood pressure monitoring, - Encouraged sodium restriction, DASH or Mediterranean diet - Recommend regular aerobic exercise Continue with your usual blood pressure medications. Check your blood pressure once daily around noon. If your blood pressure is greater than 150/80 take an additional 1/2 tablet of 50 mg metoprolol tartrate 2. 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) - ICD9: 250.91, ICD10: E10.8 controlled, continue current treatment unchanged Lydia Grande APRN.CNS Medical Decision Making: Problems: Moderate: 1+ chronic illnesses with change Data: Unique source(s) for external note(s) reviewed: 1 Unique test result(s) reviewed: 3+ Risk: Moderate: Drug management Medical Decision Making Level: 4 - Moderate documented in this encounterWadsworth-Rittman [facility]12-16-2024 Telephone encounter Note * Telephone Encounter - Octavio Reza MD - 07/02/2024 5:08 PM EST Noted. Will see how she is doing tomorrow when sees Lydia. [facility]12-16-2024 Miscellaneous Notes* Telephone Encounter - Octavio Reza MD - 07/02/2024 5:08 PM EST Noted. Will see how she is doing tomorrow when sees Lydia. * Telephone Encounter - Asmita Tapia RN - 07/02/2024 3:17 PM EST Patient calling back in and states she is concerned about her blood pressure. She states earlier she had ringing in her ears. She took her BP using her wrist BP cuff and got 175/84. BP at time of this call was 160/77. Pt due for 2nd dose of metoprolol and ramipril this evening. Denies current chestpain, SOB, blurred vision, dizziness, confusion or headache. Appt made for patient for BP check and evaluation with MADELIN Valdez for tomorrow. Pt aware to proceed to nearest ER for severe symptoms as discussed. Asmita Tapia RN * Telephone Encounter - Asmita Tapia RN - 07/02/2024 9:33 AM EST Patient contacted and given provider's message below. Pt reports her sx's have improved. Only took 1 or 2 doses of her Macrobid and then stopped taking it on Tuesday. One of the reasons she stopped taking the Macrobid, was because on Tuesday about 2 hours after taking the medication, she didn't feel good. States she had a terrible headache and felt like I was having a stroke. Her wrist BP cuff showed a BP of 190/88 that evening. She states sheconsidered going to the ER but drank a large amount of water and rested and felt improved. Denies having any chest pains, SOB, dizziness or weakness at that time. She believes she may have an adversereaction to Macrobid. Her BP today during call, using wrist BP cuff was 154/91, 149/83 and 164/76 all within 15 minutes. She states she feels stressed at times and beleives this is the cause of her elevated BP. Her NOV with Dr. Reza is in September 2024. Taking medications as ordered. This nurse advised pt to check her BP's daily and let PCP office know if they are elevated. Pt alsoaware to proceed to the ER should she experience any severe sx's again. Asmita Tapia RN * Telephone Encounter - Octavio Reza MD - 07/01/2024 5:00 PM EST No significant growth on the urine culture See whether symptoms improved with taking macrobid. If symptoms persist despite taking antibiotic and despite urine cultures not growing any significant bacteria, consider follow up with urology for further evaluation. * Telephone Encounter - Asmita Tapia RN - 06/29/2024 8:19 AM EST Patient calling for update regarding urine analysis and culture. Pt aware that culture results are still pending and she will be notified of PCP plan. Patient wants Dr. Reza to also know that currently she feels like she has to urinate and then it trickles. Also has a sore back. Also noted some swelling to left labia area and thinks it is related to wearing a different incontinence pad that she usually doesn't wear. Denies any lumps, bumps orpain to labia area and is going to continue to monitor it. Patient has not started second round of Macrobid yet, as ordered on 06/27. States she will start ittoday and is aware treatment may change once urine culture result returns. Please advise patient when able. Thank you. Asmita Tapia RN documented in this encounterW[facility]12-[facility] Telephone encounter Note * Telephone Encounter - Asmita Tapia RN - 07/02/2024 3:17 PM EST Patient calling back in and states she is concerned about her blood pressure. She states earlier she had ringing in her ears. She took her BP using her wrist BP cuff and got 175/84. BP at time of this call was 160/77. Pt due for 2nd dose of metoprolol and ramipril this evening. Denies current chestpain, SOB, blurred vision, dizziness, confusion or headache. Appt made for patient for BP check and evaluation with MADELIN Valdez for tomorrow. Pt aware to proceed to nearest ER for severe symptoms as discussed. Asmita Tapia RN [facility]12-16-2024 Telephone encounter Note* Telephone Encounter - Asmita Tapia RN - 07/02/2024 9:33 AM EST Patient contacted and given provider's message below. Pt reports her sx's have improved. Only took 1 or 2 doses of her Macrobid and then stopped taking it on Tuesday. One of the reasons she stopped taking the Macrobid, was because on Tuesday about 2 hours after taking the medication, she didn't feel good. States she had a terrible headache and felt like I was having a stroke. Her wrist BP cuff showed a BP of 190/88 that evening. She states sheconsidered going to the ER but drank a large amount of water and rested and felt improved. Denies having any chest pains, SOB, dizziness or weakness at that time. She believes she may have an adversereaction to Macrobid. Her BP today during call, using wrist BP cuff was 154/91, 149/83 and 164/76 all within 15 minutes. She states she feels stressed at times and beleives this is the cause of her elevated BP. Her NOV with Dr. Reza is in September 2024. Taking medications as ordered. This nurse advised pt to check her BP's daily and let PCP office know if they are elevated. Pt alsoaware to proceed to the ER should she experience any severe sx's again. Asmita Tapia RN [facility]12-15-2024 Telephone encounter Note* Telephone Encounter - Octavio Reza MD - 07/01/2024 5:00 PM EST No significant growth on the urine culture See whether symptoms improved with taking macrobid. If symptoms persist despite taking antibiotic and despite urine cultures not growing any significant bacteria, consider follow up with urology for further evaluation. [facility]12-13-2024 Telephone encounter Note* Telephone Encounter - Asmita Tapia RN - 06/29/2024 8:19 AM EST Patient calling for update regarding urine analysis and culture. Pt aware that culture results are still pending and she will be notified of PCP plan. Patient wants Dr. Reza to also know that currently she feels like she has to urinate and then it trickles. Also has a sore back. Also noted some swelling to left labia area and thinks it is related to wearing a different incontinence pad that she usually doesn't wear. Denies any lumps, bumps orpain to labia area and is going to continue to monitor it. Patient has not started second round of Macrobid yet, as ordered on 06/27. States she will start ittoday and is aware treatment may change once urine culture result returns. Please advise patient when able. Thank you. Asmita Tapia RN [facility]12-12-2024 Telephone encounter Note* Telephone Encounter - Asmita Tapia RN - 06/28/2024 8:58 AM EST Patient notified. Asmita Tapia RN [facility]12-12-2024 Miscellaneous Notes* Telephone Encounter - Asmita Tapia RN - 06/28/2024 8:58 AM EST Patient notified. Asmita Tapia RN * Telephone Encounter - Octavio Reza MD - 06/27/2024 6:38 PM EST Filed orders so may get urine studies first then take antibiotic, or can take antibiotic first thencheck post med urine studies if needed if symptoms not resolving. The following approved medication requests have been transmitted electronically. Requested Prescriptions Signed Prescriptions Disp Refills nitrofurantoin monohydrate and macrocrystal (MACROBID) 100 mg capsule 10 capsule 0 Sig: Take 1 capsule by mouth two times a day for 5 days. Authorizing Provider: OCTAVIO REZA MD * Telephone Encounter - Madeline Quintana LPN - 06/27/2024 5:59 PM EST Copy of message printed and given to PCP to address. Madeline Quintana LPN * Telephone Encounter - Palma Gibson LPN - 06/27/2024 9:10 AM EST Patient calling, checking on status of message. Please advise. * Telephone Encounter - Asmita Tapia RN - 06/26/2024 3:36 PM EST Patient asking for Dr. Reza to advise. Pt was seen by Dr. Reza on 06/11/24 and Macrobid was ordered for her due to UTI. Patient statesthe only sx's she had at that time was a feeling of an irregular heart beat and spikes in her bloodsugars. Patient states over the last 2 days she began experiencing a feeling of irregular heart beats againand her blood glucose level today went from 152 fasting this morning to 270 after breakfast and that is unusual for her. Yesterday her levels ranged from 130-229. She denies and chest pain, SOB, weakn ess, dizziness, fever, or any other symptoms. Patient states it is difficult for her to come back into the office due to being in a wheelchair and her has to assist her. Asking if Dr. Reza would want to place urine orders for her, order other medication, or provide other advise? Please advise patient on her spouse's cell #: [phone]. Thank you. documented in this encounterWad[facility]12-11-2024 Telephone encounter Note * Telephone Encounter - Octavio Reza MD - 06/27/2024 6:38 PM EST Filed orders so may get urine studies first then take antibiotic, or can take antibiotic first thencheck post med urine studies if needed if symptoms not resolving. The following approved medication requests have been transmitted electronically. Requested Prescriptions Signed Prescriptions Disp Refills nitrofurantoin monohydrate and macrocrystal (MACROBID) 100 mg capsule 10 capsule 0 Sig: Take 1 capsule by mouth two times a day for 5 days. Authorizing Provider: OCTAVIO REZA MD [facility]12-11-2024 Telephone encounter Note* Telephone Encounter - Madeline Quintana LPN - 06/27/2024 5:59 PM EST Copy of message printed and given to PCP to address. Madeline Quintana LPN [facility]12-11-2024 Telephone encounter Note* Telephone Encounter - Palma Gibson LPN - 06/27/2024 9:10 AM EST Patient calling, checking on status of message. Please advise. [facility]12-10-[facility] Telephone encounter Note* Telephone Encounter - Asmita Tapia RN - 06/26/2024 3:36 PM EST Patient asking for Dr. Reza to advise. Pt was seen by Dr. Reza on 06/11/24 and Macrobid was ordered for her due to UTI. Patient statesthe only sx's she had at that time was a feeling of an irregular heart beat and spikes in her bloodsugars. Patient states over the last 2 days she began experiencing a feeling of irregular heart beats againand her blood glucose level today went from 152 fasting this morning to 270 after breakfast and that is unusual for her. Yesterday her levels ranged from 130-229. She denies and chest pain, SOB, weakn ess, dizziness, fever, or any other symptoms. Patient states it is difficult for her to come back into the office due to being in a wheelchair and her has to assist her. Asking if Dr. Reza would want to place urine orders for her, order other medication, or provide other advise? Please advise patient on her spouse's cell #: [phone]. Thank you. [facility]12-05-[facility]12[facility] History of Present illness Narrative* Rama Mckeon MA - 06/21/2024 9:23 AM EST POPULATION HEALTH NAVIGATION OUTREACH Action/June 21, 2024 AWV INITIATIVE Reason for Outreach Care Gap/HCC or Scheduling Wellness Visits Care Gaps due: Medicare Annual Wellness Visit Patient Contacted: Unable or unnecessary to reach patient: Flipped existing appointment Updated appointment notes Navigation Signature: Rama Mckeon MA June 21, 2024 9:23 AM documented in this encounterWadsworth-[facility]12-03-2024 Telephone encounter Note * Telephone Encounter - Darlene Mena RN - 06/19/2024 9:30 AM EST The patient has been identified by name and date of : Yes Caregiver verified no other encounters exist for this prescription request: Yes Caregiver confirmed with patient/requestor that no other refills are due, in the near future, with this provider at this time: Yes The last office visit in the department: 06/11/2024 Does the patient have a future office visit with this provider/department: Yes 10/15/2024 Requested Prescriptions Pending Prescriptions Disp Refills blood sugar diagnostic (BLOOD GLUCOSE TEST) test strip 200 Strip 11 Sig: Test blood sugar(s) 8 times daily--Medically Necessary for labile blood sugars (highs and lows). Dx: Other DM Code E10.8, E11.610 Insulin: Yes Darlene Mena RN June 19, 2024 9:31 AM [facility]12-03-2024 Miscellaneous Notes* Telephone Encounter - Darlene Mena RN - 06/19/2024 9:30 AM EST The patient has been identified by name and date of : Yes Caregiver verified no other encounters exist for this prescription request: Yes Caregiver confirmed with patient/requestor that no other refills are due, in the near future, with this provider at this time: Yes The last office visit in the department: 06/11/2024 Does the patient have a future office visit with this provider/department: Yes 10/15/2024 Requested Prescriptions Pending Prescriptions Disp Refills blood sugar diagnostic (BLOOD GLUCOSE TEST) test strip 200 Strip 11 Sig: Test blood sugar(s) 8 times daily--Medically Necessary for labile blood sugars (highs and lows). 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 Patient consents to pharmacy collaborative practice agreement. Last Pharmacy Visit: 04/24/24 - Lantus decreased to 26 units daily, insulin aspart with breakfast decreased to 3 units Interim Events: - 05/23/24 A1c results: improvement from 7.7% to 6.9% - 06/11/24 PCP visit HPI: Reports doing well On speaker phone with patient and patient's , Hayden States BGs have been fluctuating at times Reports she has been baking for the holiday season, so has had some more sweets lately States at her last visit with PCP, was told to take Lantus at 22 units consisently, but has been adjusting dose due to fear of hypoglycemia Current DM Medications: Lantus 20 units once daily - taking 20-24 units once daily Insulin aspart 3 units with breakfast, 4 units with lunch, 5 units with dinner + SS#1 GLYCEMIC CONTROL: Glucometer present at visit: Yes Hypoglycemia: Yes SMBGS (Fingersticks) Date Fasting AM 2 hr PP Before Lunch 2 hr PP Before Dinner 2 hr PP Bedtime 06/19 160, 184/4 148, 138 06/18 219, 229/5 199/6 165 141, 78*, 249/7 152-20 06/17 238/5 173/5 139 223/7 06/16 176, 220/5 66* 136 102 160/6 101-20 06/15 104, 156/4 148 155/6 173 191, 220/7 167 180-23 06/14 131, 208/5 86 131, 156/5 154 145/5 179 160-24 06/13 163, 182/4 177 133/4 195 159/6 184-23 06/12 131, 208/5 86 131, 156/5 154 145/5 179 160-24 AVG 180 121 152 154 171 178 156 Past medical history reviewed. ALLERGIES Allergen Reactions Hctz [Amiloride-Hyd* Other: See Comments Rapid heart beat, nausea, light eaded. (lasted about 12 hours after first dose) Oseltamivir Mental Status Change hallucinations Doxycycline GI Upset Escitalopram Intolerance Fatigued after just a half pill dose. Did not want to take anymore. Lysine Itching Naprosyn [Naproxen] GI Upset Nausea Yfzwukc-Wps-Rbl Red* Myalgia Tylenol-Codeine #3 * Vomiting Ventolin [Albuterol* GI Upset, Vomiting Current Outpatient Medications Medication Sig Dispense Refill [START ON 07/09/2024] zolpidem (AMBIEN) 5 mg tablet Take 0.5-1 tablets by mouth at bedtime as needed for up to 90 days. Needs larger pill dispensed to cut in half. Patient should start on July 09, 2024. 30 tablet 2 albuterol HFA (PROVENTIL HFA, VENTOLIN HFA) 90 mcg/actuation inhaler Inhale 2 Puffs as instructed four times a day as needed. FOR WHEEZING AND SHORTNESS OF BREATH. 1 Each 1 amLODIPine (NORVASC) 10 mg tablet Take 0.5 tablets by mouth once daily. 90 tablet 3 metoprolol tartrate, short acting, (LOPRESSOR) 50 mg tablet Take 1/2 tablet by mouth twice a day 90tablet 3 ramipril (ALTACE) 10 mg capsule Take 1 capsule by mouth two times a day. 180 capsule 3 SYMBICORT 160-4.5 mcg/actuation inhaler Inhale 2 Puffs as instructed two times a day. 11 g 5 Chlorhexidine Gluconate (PERIDEX) 0.12 % solution Use 15 mL as instructed two times a day. insulin glargine (LANTUS SOLOSTAR U-100 INSULIN) 100 unit/mL (3 mL) Inject 20 units once daily (Patient taking differently: Inject 20-26 Units subcutaneously daily at bedtime. Inject 20 units once daily) insulin aspart U-100 (NOVOLOG U-100 INSULIN ASPART) 100 unit/mL Inject 3 units with breakfast, 4 units with lunch, 5 units dinner. PLUS SS#1 (1 units for every 50 over 150 PRE MEAL blood sugar) TDD 50 units daily TYPE I DIABETES, insulin dependent, E10.65 20 mL 3 benzonatate (TESSALON PERLES) 100 mg capsule Take 1 capsule by mouth three times a day as needed for cough. (Patient not taking: Reported on 06/11/2024) 21 capsule 0 glucagon (GVOKE HYPOPEN 1-PACK) 1 mg/0.2 mL auto-injector Inject 1 mg subcutaneously as needed. 0.2mL 3 cholecalciferol, Vitamin D3, (VITAMIN D3) 1,250 mcg (50,000 unit) cap capsule Take 1 capsule by mouth one time a week. 12 capsule 4 blood sugar diagnostic (BLOOD GLUCOSE TEST) test strip Test blood sugar(s) 8 times daily--MedicallyNecessary for labile blood sugars (highs and lows). Dx: Other DM Code E10.8, E11.610 Insulin: Yes 200 Strip 11 aspirin, enteric coated (ASPIRIN, ENTERIC COATED) 81 mg EC tablet Take 1 tablet by mouth two times a day. (Patient taking differently: Take 81 mg by mouth once daily.) furosemide (LASIX) 20 mg tablet Take 1 tablet by mouth once daily as needed. (Patient taking differently: Take 20 mg by mouth once daily as needed (edema).) 90 tablet 3 mometasone (ELOCON) 0.1 % cream Apply to affected area once daily as needed (for scalp psoriasis). For 14 days. Treat for recurrences. Apply at bedtime then wash off in the morning 45 g 1 flash glucose sensor (FREESTYLE RAISSA 2 SENSOR) kit Apply new sensor every fourteen (14) days to upper arm. (Patient not taking: Reported on 05/23/2024) 6 Each 4 Insulin [place], Disposable, (BD ULTRA-FINE FADY PEN NEEDLE) 32 gauge x 5/32 Use one needle for each dose. 1-2 /day. 100 Each 11 COMPOUNDED PRESCRIPTION Bi-PAP nose pads. (G47.33) THAIS treated with BiPAP 2 Device 1 ibuprofen 200 mg tablet Take 1-2 tablets by mouth four times daily as needed (Take with food.). --currently only needing 1 pill twice daily to help with cough (Patient taking differently: Take 200-400 mg by mouth four times a day as needed (Take with food.).) No current facility-administered medications for this visit. Pill bottles are not present. Adherence: denies missed doses. Rx coverage: Payor: [employer] MEDICARE / Plan: [employer] MEDICARE PPO / Product Type: PPO / Medications affordable? Yes PHARMACOTHERAPY PREVENTATIVE MEDS: On JOEY/ARB: Yes On Statin: No - see allergy list On ASA: Yes EXAM: There were no vitals taken for this visit. Last 3 Encounter BP Readings: Date: BP: 06/11/2024 124/78 05/23/2024 138/72 05/07/2024 140/72 Wt: 139.8 kg (308 lb 3.3 oz) BMI: 44.86 kg/(m^2) LABS: Lab Results Component Value Date HBA1C 6.9 05/23/2024 HBA1C 7.7 12/07/2023 HBA1C 7.7 09/01/2023 HBA1C 7.4 05/16/2023 HBA1C 7.8 09/02/2021 HBA1C 7.4 05/04/2021 HBA1C 8.4 01/06/2021 Glucose 114 01/27/2024 BUN 18 01/27/2024 Creatinine, Whole Blood (iSTAT) 0.77 01/27/2024 Sodium 139 01/27/2024 Potassium 4.1 01/27/2024 Chloride 102 01/27/2024 CO2 28 01/27/2024 Protein, Total 6.7 01/27/2024 Albumin 3.9 01/27/2024 Calcium 9.4 01/27/2024 Alkaline Phosphatase 101 01/27/2024 Bilirubin, Total 0.8 01/27/2024 AST 14 01/27/2024 ALT 12 01/27/2024 Lab Results Component Value Date CHOL 175 01/27/2024 CHOL 180 05/04/2021 LDL 98 01/27/2024 LDL 105 05/04/2021 HDL 62 01/27/2024 HDL 58 05/04/2021 TG 77 01/27/2024 TG 84 05/04/2021 Albumin/Creat Ratio (mg/g) Date Value 09/02/2023 <15 eGFR-All Other Races (.) Date Value 09/11/2021 >60 Estimated Glomerular Filtration Rate (mL/min/1.73m ) Date Value 01/27/2024 79 ASSESSMENT/PLAN: 1. 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 Follow Up: Next PCP visit: 10/15/24 Next endo visit: 11/28/24 Next PharmD visit: 07/31/24 Armando HirschD, BCACP Primary Care Clinical Global Sales Manager documented in this encounterWadsworth-Ritt[facility]12-03-2024 NoteW[facility]11-27-2024 Evaluation note* Diagnosis Onset Date Resolution Status Admit Date Abnormal stress test acute Nove mber 2023 2:00pm THAIS (obstructive sleep apnea) acute June 13, 2024 2:00pm Essential hypertension chronic No vember 2023 2:00pm Paroxysmal SVT (supraventricular tachycardia) chronic N ovember 2023 2:00pm [facility] Work Phone: [phone]) 233-132611-25-2024 Instructions* Patient Instructions* Octavio Reza MD - 06/11/2024 10:39 AM EST - Switch from Bactrim to Macrobid for your bladder infection; [facility] - Take 22 units of insulin glargine at bedtime consistently. - Treat any blood sugar readings below 70 with fast-acting glucose (e.g., glucose tablets, sugary candy, 4 ounces of juice, or Gatorade). - Monitor your blood sugar levels regularly and record them. - Refills provided for Zolpidem, albuterol, amlodipine, metoprolol, and Symbicort; pickle solution maker medications from [facility] as needed. - Elevate your feet when possible and continue wearing compression stockings to manage swelling. - Continue riding your bicycle for exercise. - Next follow-up appointment in 4 months. documented in this encounterWadsworth-[facility]itt[facility]11-25-2024 [facility]11-25-2024 History of Present illness Narrative* Octavio Reza MD - 06/11/2024 10:03 AM EST This note was created using DAQRIriter. Subjective Attila Kidd is a 78 year old female. Patient presents with: 4 month follow up: [facility] ER 06/08/24 follow up for UTI. Treated with Bactrim but feels not tolerating the Bactrim as it is causing her to be really warm and elevated blood sugar SUBJECTIVE: Attila Kidd is a 78 year old year old lady here today for 4 month follow up appointment for review of medical conditions. Attila Kidd is a 78-year-old female with a history of DM, presenting for a 4- month follow-up [facility] ER visit for a UTI. Attila was seen in the ER on 06/08 for a UTI and was prescribed Bactrim. She reports that the Bactrimhas been causing gastrointestinal side effects, including nausea and diarrhea, and she has reduced her dosage to 1.5 pills per day. She also notes an increase in blood glucose levels since starting the medication, with readings ranging from 120 to 206 mg/dL, and a low of 55 mg/dL. She attributes the increase in blood glucose levels to the UTI and the medication. She has been adjusting her insulindosage, which has been fluctuating between 20 and 26 units, and she believes this may have contributed to the hypoglycemic episode. She denies any changes in her diet. Attila also reports difficulty sleeping and is currently taking Zolpidem, which she finds difficult to split due to the small size of the pills. She requests a refill for her medication. She also mentions that she is due for a refill of her inhaler and metoprolol. Attila has been experiencing swelling in her lower extremities and is wearing compression stockings. She is also riding her bicycle for exercise. She reports a gradual weight loss but has recently plateaued. She is monitoring her portion sizes and carbohydrate intake to help manage her blood glucose levels and weight. PAST MEDICAL HISTORY Diagnosis Date Adverse reaction [...] 10/12/2006 Rosacea 09/06/2007 Vitamin D deficiency 08/21/2010 Current Outpatient Medications Medication Sig Chlorhexidine Gluconate (PERIDEX) 0.12 % solution Use 15 mL as instructed two times a day. insulin glargine (LANTUS SOLOSTAR U-100 INSULIN) 100 unit/mL (3 mL) Inject 20 units once daily (Patient taking differently: Inject 20-26 Units subcutaneously daily at bedtime. Inject 20 units once daily) insulin aspart U-100 (NOVOLOG U-100 INSULIN ASPART) 100 unit/mL Inject 3 units with breakfast, 4 units with lunch, 5 units dinner. PLUS SS#1 (1 units for every 50 over 150 PRE MEAL blood sugar) TDD 50 units daily TYPE I DIABETES, insulin dependent, E10.65 glucagon (GVOKE HYPOPEN 1-PACK) 1 mg/0.2 mL auto-injector Inject 1 mg subcutaneously as needed. cholecalciferol, Vitamin D3, (VITAMIN D3) 1,250 mcg (50,000 unit) cap capsule Take 1 capsule by mouth one time a week. aspirin, enteric coated (ASPIRIN, ENTERIC COATED) 81 mg EC tablet Take 1 tablet by mouth two times a day. (Patient taking differently: Take 81 mg by mouth once daily.) furosemide (LASIX) 20 mg tablet Take 1 tablet by mouth once daily as needed. (Patient taking differently: Take 20 mg by mouth once daily as needed (edema).) mometasone (ELOCON) 0.1 % cream Apply to affected area once daily as needed (for scalp psoriasis). For 14 days. Treat for recurrences. Apply at bedtime then wash off in the morning ibuprofen 200 mg tablet Take 1-2 tablets by mouth four times daily as needed (Take with food.). --currently only needing 1 pill twice daily to help with cough (Patient taking differently: Take 200-400 mg by mouth four times a day as needed (Take with food.).) [START ON 07/09/2024] zolpidem (AMBIEN) 5 mg tablet Take 0.5-1 tablets by mouth at bedtime as needed for up to 90 days. Needs larger pill dispensed to cut in half. Patient should start on July 09, 2024. nitrofurantoin monohydrate and macrocrystal (MACROBID) 100 mg capsule Take 1 capsule by mouth two times a day for 5 days. albuterol HFA (PROVENTIL HFA, VENTOLIN HFA) 90 mcg/actuation inhaler Inhale 2 Puffs as instructed four times a day as needed. FOR WHEEZING AND SHORTNESS OF BREATH. amLODIPine (NORVASC) 10 mg tablet Take 0.5 tablets by mouth once daily. metoprolol tartrate, short acting, (LOPRESSOR) 50 mg tablet Take 1/2 tablet by mouth twice a day ramipril (ALTACE) 10 mg capsule Take 1 capsule by mouth two times a day. SYMBICORT 160-4.5 mcg/actuation inhaler Inhale 2 Puffs as instructed two times a day. benzonatate (TESSALON PERLES) 100 mg capsule Take 1 capsule by mouth three times a day as needed for cough. (Patient not taking: Reported on 06/11/2024) blood sugar diagnostic (BLOOD GLUCOSE TEST) test strip Test blood sugar(s) 8 times daily--MedicallyNecessary for labile blood sugars (highs and lows). Dx: Other DM Code E10.8, E11.610 Insulin: Yes flash glucose sensor (FREESTYLE RAISSA 2 SENSOR) kit Apply new sensor every fourteen (14) days to upper arm. (Patient not taking: Reported on 05/23/2024) Insulin [place], Disposable, (BD ULTRA-FINE FADY PEN NEEDLE) 32 gauge x 5/32 Use one needle for each dose. 1-2 /day. COMPOUNDED PRESCRIPTION Bi-PAP nose pads. (G47.33) THAIS treated with BiPAP No current facility-administered medications for this visit. Review of Systems Objective BP 124/78 Pulse (!) 51 Wt (!) 139.8 kg (308 lb 3.3 oz) SpO2 96% BMI 44.86 kg/m Last 5 Encounter Wt Readings: Date: Wt: 06/11/2024 139.8 kg (308 lb 3.3 oz) 05/23/2024 140.2 kg (309 lb) 05/07/2024 141.2 kg (311 lb 4.6 oz) 04/18/2024 143.9 kg (317 lb 3.9 oz) 02/15/2024 142.9 kg (315 lb) No waist measurement recorded Estimated body mass index is 44.86 kg/m as calculated from the following: Height as of 05/23/24: 176.5 cm (5' 9.5). Weight as of this encounter: 139.8 kg (308 lb 3.3 oz). Last 5 Encounter BP Readings: Date: BP: 06/11/2024 124/78 05/23/2024 138/72 05/07/2024 140/72 04/18/2024 136/84 03/07/2024 132/82 Physical Exam Constitutional: Appearance: Normal appearance. HENT: [...] normal. Speech: Speech normal. Behavior: Behavior normal. Thought Content: Thought content normal. Judgment: Judgment normal. 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 - Recent A1c was 6.9%. - Adjusted insulin glargine dose to 22 units nightly to stabilize blood glucose levels. - Educated on the importance of consistent insulin dosing and monitoring morning blood glucose levels to guide adjustments. - Reinforced the use of a sliding scale for mealtime insulin to maintain blood glucose control during the day. - Discussed treatment of hypoglycemia with fast-acting carbohydrates such as glucose tablets or juice. # Acute cystitis without hematuria (N30.00) - Recent ER visit on 06/08 for UTI; started on Bactrim. - Experiencing side effects from Bactrim, including gastrointestinal upset and potential hyperglycemia. - Discontinued Bactrim; initiated Macrobid. - Ensure adequate hydration. # Primary insomnia (F51.01) - Managed with Zolpidem 5 mg as needed. - Refill scheduled for July 09. - Discussed methods for splitting tablets if necessary. # Uncomplicated severe persistent asthma (J45.50) # Severe persistent asthma without complication (J45.50) - Managed with Symbicort 160/4.5 mcg inhaler. - Refill ordered. - Albuterol inhaler refilled; not used routinely. # Palpitations (R00.2) - Recent cardiac evaluation including stress test, echocardiogram, and 24-hour Holter monitor. - Follow-up with scientific process operator Dr. Bosch scheduled for Tuesday. # Essential hypertension (I10) - Managed with amlodipine and ramipril. - Refills ordered for both medications. - Blood pressure well-controlled. # Stasis edema of both lower extremities (I87.303) - Mild edema noted. - Continues to use compression stockings and elevate legs. - Encouraged regular leg exercises and cycling to promote venous return. Octavio Reza MD documented in this encounterW[facility] History of Present illness Narrative* Federica Alonzo RN - 06/06/2024 11:47 AM EST Images from the original note were not included. [facility] Telephonic Outreach Provider Action/FYI Patient identified by Name and Date of . Patient refused. Patient declines to verify identity, questioning why she needs to provide when she was the one who was called. Attempted to explain purpose of calls. Patient states she will reach out to pcp office. Program Details Chronic Disease Management Status: Declined CDM Patient declined - After starting program Effective Dates: 04/04/2024 - 06/06/2024 Responsible Staff: Federica Alonzo RN Support and Services: None active Program Goals Targets Target Due Completed Completed By Outcome Patient-stated goal addressed (add comment) 07/04/2024 05/22/2024 Federica Alonzo RN -- Working on going through items from when they moved. General education provided (managing stress, where to go/how to contact, etc.) 05/04/2024 04/19/2024Federica Alonzo RN -- Biannual PCP visit addressed 07/04/2024 04/19/2024 Federica Alonzo RN -- Diabetes lab care gaps addressed 07/04/2024 04/19/2024 Federica Alonzo RN -- HTN lab care gaps addressed 07/04/2024 04/19/2024 Federica Alonzo RN -- Intake assessments completed: ADLs, Fall Risk, SDOH 05/04/2024 04/04/2024 Federica Alonzo RN -- Assessments No documentation this encounter Interventions No episode Federica Alonzo RN June 06, 2024 11:52 AM documented in this encounterWadsworth[facility]11-15-2024 Telephone encounter Note * Telephone Encounter - Ritika Santos LPN - 06/01/2024 9:46 AM EST Patients notified of providers message and verbalized understanding [facility]11-15-2024 Miscellaneous Notes* Telephone Encounter - Ritika Santos LPN - 06/01/2024 9:46 AM EST Patients notified of providers message and verbalized understanding * Telephone Encounter - Lydia Grande APRN.[employer] - 06/01/2024 8:39 AM EST Looks like labs are due in July / endocrine orders. * Telephone Encounter - Cayla Lynne LPN - 05/31/2024 8:05 AM EST Spouse called to check and see if lab work is needed for pt before her apt on 06-11-24. Please advise spouse. PH: [phone] Cayla Lynne LPN documented in this encounterWadsworth-[facility]itt[facility]11-15-2024 Telephone encounter Note * Telephone Encounter - Lydia Grande APRN.CNS - 06/01/2024 8:39 AM EST Looks like labs are due in July / endocrine orders. [facility]11-14-[facility] Telephone encounter Note* Telephone Encounter - Cayla Lynne LPN - 05/31/2024 8:05 AM EST Spouse called to check and see if lab work is needed for pt before her apt on 06-11-24. Please advise spouse. PH: [phone] Cayla Lynne LPN [facility]11-08-2024 Miscellaneous Notes* Telephone Encounter - Norma Devlin RN - 05/25/2024 10:49 AM EST Continuation/follow-up from previous Nurse Triage encounter (05/25/2024): Call placed to Pt's , Elijah. Pt present on speaker phone, as well. Verified Pt name & . Pt's most recent blood glucose was at 0919 this morning, and it was 345. Pt is asymptomatic. Deniespolyuria this morning, just last night. Denies s/sx of infection. Pt and spouse are worried the sudden spike in Pt's glucose is because the Lantus was just decreased from 26 units at bedtime to 20 units at bedtime on 05/23/2024 by Renetta Mcgee CNP. Per sliding scale instructions, Pt and spouse were instructed to take pre-meal blood sugar for lunch and give 4 units plus SS#1, as prescribed. Approximately 2 hours after Pt eats lunch, Pt is to check her blood sugar once again and re- evaluate. Pt and spouse voice understanding. SS#1 instructions reviewed with Pt and spouse. Questions answered to Pt satisfaction. After-hours phone number provided to Pt should they have any questions/concerns throughout the weekend until Renetta is back in office on 05/28/2024. Norma Devlin RN May 25, 2024 10:56 AM documented in this encounterWadsworth-[facility]11-08-2024 Telephone encounter Note * Telephone Encounter - Norma Devlin RN - 05/25/2024 10:49 AM EST Continuation/follow-up from previous Nurse Triage encounter (05/25/2024): Call placed to Pt's , Elijah. Pt present on speaker phone, as well. Verified Pt name & . Pt's most recent blood glucose was at 0919 this morning, and it was 345. Pt is asymptomatic. Deniespolyuria this morning, just last night. Denies s/sx of infection. Pt and spouse are worried the sudden spike in Pt's glucose is because the Lantus was just decreased from 26 units at bedtime to 20 units at bedtime on 05/23/2024 by Renetta Mcgee CNP. Per sliding scale instructions, Pt and spouse were instructed to take pre-meal blood sugar for lunch and give 4 units plus SS#1, as prescribed. Approximately 2 hours after Pt eats lunch, Pt is to check her blood sugar once again and re- evaluate. Pt and spouse voice understanding. SS#1 instructions reviewed with Pt and spouse. Questions answered to Pt satisfaction. After-hours phone number provided to Pt should they have any questions/concerns throughout the weekend until Renetta is back in office on 05/28/2024. Norma Devlin RN May 25, 2024 10:56 AM [facility]11-08-2024 Miscellaneous Notes* Telephone Encounter - Gloria Rand RN - 05/25/2024 9:38 AM EST Called and spoke with both pt and her Elijah. Pt saw Renetta Mcgee on Tue. Renetta changed pt's evening dose of Lantus from 26 units down to 20 units due to pt having lower sugars duringthe day. They started the 20 units on Tue evening. See below for pt's BS on Tuesday prior to the change and BS on and so far today. Explained to pt and her that the elevated BS could be from the change in her evening dose. Confirmed with both pt and her on dosing of her insulin and they are taking as directed and using the Sliding Scale. wondering if they need to change the dose at lunch. Instructed to follow the instructions on insulin dosing for now. Pt states she also went to the ER this morning around 0430. states she was having some chest pressure. ER did some labs, EKG and an xray. BS on the lab there was 274. Pt was discharged and home by 06Tuesday sugar readings: 0415 105 0700 111 took 3 units of Novolog with breakfast 1020 173 took 5 units of Novolog with lunch 2429 845 8842 84 9984 112 2679 190 Took 6 units of Novolog with supper 4209 180 4839 155 took new dose of 20 units Lantus : 0423 123 0600 163 took 4 units of Novolog with breakfast 0940 193 1113 218 took 6 units of Novolog with lunch 4315 195 1556 230 took 7 units of Novolog with supper 2040 185 Took 20 units of Lantus Tuesday (today) 0215 253 0630 344 took 7 units of Novolog with breakfast 0840 369 0919 345 Protocol recommends send msg to provider. Discussed with IM management and since pt sees Endocrinology, msg to be routed back to their office for the specialty to review and advise pt. Reason for Disposition [1] Blood glucose > 300 mg/dL (16.7 mmol/L) AND [2] two or more times in a row Answer Assessment - Initial Assessment Questions 1. BLOOD GLUCOSE: 0215 253, 0630 344, 0840 369 and at 0919 during phone call, it was 345. 2. ONSET: see above 3. USUAL RANGE:see notes 4. KETONES: does not check 5. TYPE 1 or 2: Type 1 6. INSULIN: see notes 7. DIABETES PILLS: n/a 8. OTHER SYMPTOMS: denies any fever, difficulty breathing, dizziness, weakness, or vomiting. Statesshe is urinating more often, but has been drinking a lot of water. They thought that when your blood sugar is high, you should drink lots of water. 9. :n/a Protocols used: Diabetes - High Blood [id number] * Telephone Encounter - Trudy Wang MA - 05/25/2024 8:58 AM EST Patient and contacted the office to report that she was in the ED early this morning. Patient was not able to sleep last night. Blood sugar reading at 2:15 am was 253 and the patient was feeling heart palpitations so her took her to [facility]. Dinner last night was a salad. At 6:30 this morning when they got home her sugar was 344 and she took 7 units of Novologand she had breakfast of scrambled eggs and rye toast. Blood sugar reading at 8:40 am was 369. She recently took daily medications. They are concerned that her blood sugar is so high. asking if the patient should take more insulin. Advised I am not able to give instruction to give additional insulin as that would need to come from the provider. They verbalized understanding. They would like a call back on the husbands phone at [phone]. documented in this encounterWadsworth-[facility]11-08-2024 Telephone encounter Note * Telephone Encounter - Gloria Rand RN - 05/25/2024 9:38 AM EST Called and spoke with both pt and her Elijah. Pt saw Renetta Mcgee on Tue the . Renetta changed pt's evening dose of Lantus from 26 units down to 20 units due to pt having lower sugars duringthe day. They started the 20 units on Tue evening. See below for pt's BS on Tuesday prior to the change and BS on and so far today. Explained to pt and her that the elevated BS could be from the change in her evening dose. Confirmed with both pt and her on dosing of her insulin and they are taking as directed and using the Sliding Scale. wondering if they need to change the dose at lunch. Instructed to follow the instructions on insulin dosing for now. Pt states she also went to the ER this morning around 0430. states she was having some chest pressure. ER did some labs, EKG and an xray. BS on the lab there was 274. Pt was discharged and home by 629 sugar readings: 0415 105 0700 111 took 3 units of Novolog with breakfast 1020 173 took 5 units of Novolog with lunch 8430 665 5753 84 5699 465 9294 190 Took 6 units of Novolog with supper 9126 949 2089 155 took new dose of 20 units Lantus : 0423 123 0600 163 took 4 units of Novolog with breakfast 0940 193 1113 218 took 6 units of Novolog with lunch 6842 460 8382 230 took 7 units of Novolog with supper 2040 185 Took 20 units of Lantus Tuesday (today) 0215 253 0630 344 took 7 units of Novolog with breakfast 0840 369 0919 345 Protocol recommends send msg to provider. Discussed with IM management and since pt sees Endocrinology, msg to be routed back to their office for the specialty to review and advise pt. Reason for Disposition [1] Blood glucose > 300 mg/dL (16.7 mmol/L) AND [2] two or more times in a row Answer Assessment - Initial Assessment Questions 1. BLOOD GLUCOSE: 0215 253, 0630 344, 0840 369 and at 0919 during phone call, it was 345. 2. ONSET: see above 3. USUAL RANGE:see notes 4. KETONES: does not check 5. TYPE 1 or 2: Type 1 6. INSULIN: see notes 7. DIABETES PILLS: n/a 8. OTHER SYMPTOMS: denies any fever, difficulty breathing, dizziness, weakness, or vomiting. Edis is urinating more often, but has been drinking a lot of water. They thought that when your blood sugar is high, you should drink lots of water. 9. :n/a Protocols used: Diabetes - High Blood [id number] [facility]11-08-2024 Telephone encounter Note* Telephone Encounter - Trudy Wang MA - 05/25/2024 8:58 AM EST Patient and contacted the office to report that she was in the ED early this morning. Patient was not able to sleep last night. Blood sugar reading at 2:15 am was 253 and the patient was feeling heart palpitations so her took her to [facility]. Dinner last night was a salad. At 6:30 this morning when they got home her sugar was 344 and she took 7 units of Novologand she had breakfast of scrambled eggs and rye toast. Blood sugar reading at 8:40 am was 369. She recently took daily medications. They are concerned that her blood sugar is so high. asking if the patient should take more insulin. Advised I am not able to give instruction to give additional insulin as that would need to come from the provider. They verbalized understanding. They would like a call back on the husbands phone at [phone]. [facility]11-06-2024 History of Present illness Narrative* Renetta Mcgee, JOSEFINA.PLATE SLITTER AND INSPECTOR - 05/23/2024 12:45 PM EST OFFICE VISIT PROGRESS NOTE CC Attila Kidd is a 78 year old who presents today for blood sugar review, insulin dosing adjust. HPI Diagnosed with diabetes mellitus type 1, ~ 2005 Last endocrine OV 02/15/2024 Some elements copied from my note 02/15/2024 which have been updated where appropriate, and all reflect current medical decision making from date of this visit. HISTORY OF PRESENT ILLNESS; Attila Kidd is a very pleasant 78 year old FEMALE is presenting as a new patient to me regardingDM Type 1. Here with today Very frustrated, confused as to what to eat, what is ok, what is not ok Trying to follow keto plan ? Patient and both very confused and overwhelmed with insulin dosing, blood sugar control. She was initially diagnosed with diabetes in 2005. The patient reports the following microvascular complications: peripheral neuropathy and charcot joint. Attila has no know macrovascular complications of diabetes. DM Education No Knows how to carb count No Exercise: limited HPI 02/15/2024 Confirmed again with patient that her labs showed that she is a type I confirmed. 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 Sugars have run mostly between 105-177 with average of 145 Occ overcompensation, but rare CURRENT DM MEDS NOVOLOG 3-4-6 plus SS#1 LANTUS 26 units once daily SMBG Type of Monitor: Other Frequency of Monitorin times a day BG Values: Waking sugar 400 am - 75-155 Pre breakfast 8-9 am 135-160 12-1230 lunch 102-179 Pre dinner 5-6 pm 150-155 ll day, bring food log with blood sugars written out Hypoglycemia: no Diet: Low carbohydrate Exercise: limited DM REVIEW OF SYSTEMS Last Eye Exam : yearly Last Podiatry Exam: Cardiorespiratory: negative, denies chest pain, pressure Claudication: no Dyslipidemia: Yes, controlled on medication High Blood Pressure: Yes, controlled on medication CURRENT LABS Latest Ref Rng 12/07/2023 01/27/2024 Glucose 74 - 99 mg/dL 114 (H) BUN 7 - 21 mg/dL 18 Creatinine 0.58 - 0.96 mg/dL 0.77 Sodium 136 - 144 mmol/L 139 Potassium 3.7 - 5.1 mmol/L 4.1 Chloride 98 - 107 mmol/L 102 CO2 22 - 30 mmol/L 28 Anion Gap 8 - 15 mmol/L 9 eGFR >=60 mL/min/1.73m 79 Cholesterol, Total <200 mg/dL 175 Triglyceride <150 mg/dL 77 HDL Cholesterol >39 mg/dL 62 Non HDL Cholesterol <130 mg/dL 113 Fasting Time hrs 10 VLDL Cholesterol <30 mg/dL 15 TC:HDL Ratio <5.10 2.82 LDL Cholesterol <100 mg/dL 98 LDL:HDL Ratio <2.54 1.58 Glutamic Acid Decarboxylas Ab Qualitative Negative Positive ! Glutamic Acid Decarboxylase Ab <=5.0 IU/mL 6.7 (H) Hemoglobin A1C 4.3 - 5.6 % 7.7 (H) Estimated Average Glucose mg/dL 174 Islet Cell Ab <1:4 <1:4 Vitamin D 25 Hydroxy 31.0 - 80.0 ng/mL 71.5 Legend: ! Abnormal (H) High Recent Labs 05/15/14 1011 10/18/14 0732 05/25/21 0731 09/02/21 0700 12/24/21 0718 09/14/22 0724 05/16/23 0725 09/01/23 1247 09/02/23 0530 12/07/23 1133 01/27/24 0712 ALT 14 < > -- -- 15 < > 8 14 -- -- 12 AST 15 < > -- -- 16 < > 10* 16 -- -- 14 UCRR -- < > 21.2 -- 212.6 -- -- -- 78.0 -- -- UALBR -- < > <12.0 -- 14.6 -- -- -- <12.0 -- -- UALBCR -- < > Not calculated -- 7 -- -- -- <15 -- -- TSH 1.120 -- -- -- -- -- -- -- -- -- -- TPROT 7.1 < > -- -- 7.0 < > 6.5 7.1 -- -- 6.7 ALB 4.0 < > -- -- 3.8* < > 3.8* 4.0 -- -- 3.9 CA 9.4 < > -- < > 9.2 < > 8.7 9.8 -- -- 9.4 TBILI 0.7 < > -- -- 1.3 < > 0.9 0.8 -- -- 0.8 ALKPHOS 89 < > -- -- 112 < > 110 107 -- -- 101 GLUC 198* < > -- < > 113* < > 100* 123* -- -- 114* BUN 25 < > -- < > 18 < > 21 24* -- -- 18 CREAT 0.84 < > -- < > 0.92 < > 0.96 0.72 -- -- 0.77 NA 138 < > -- < > 138 < > 139 139 -- -- 139 K 4.3 < > -- < > 3.9 < > 4.1 4.3 -- -- 4.1 CHLOR 101 < > -- < > 102 < > 104 103 -- -- 102 CO2 25 < > -- < > 27 < > 26 26 -- -- 28 ANION 12 < > -- < > 9 < > 9 10 -- -- 9 EGFROTH >60 < > -- < > 65 < > 61 86 -- -- 79 HBA1C 6.9* < > -- < > 7.9* < > 7.4* 7.7* -- 7.7* -- < > = values in this interval not displayed. Recent Labs 12/24/21 0718 09/14/22 0724 05/16/23 0725 09/01/23 1247 12/07/23 1133 01/27/24 0712 TG 87 76 -- -- -- 77 CHOL 173 186 -- -- -- 175 HDL 54 73 -- -- -- 62 VLDL 17 15 -- -- -- 15 LDL 102* 98 -- -- -- 98 FASTTIME 12 10 -- -- -- 10 TCHDL 3.20 2.55 -- -- -- 2.82 LDLHDL 1.89 1.34 -- -- -- 1.58 NONHDL 119 113 -- -- -- 113 HBA1C 7.9* 7.3* 7.4* 7.7* 7.7* -- HBA0 180 163 166 174 174 -- PAST MEDICAL HISTORY Diagnosis Date Adverse reaction [...] 10/12/2006 Rosacea 09/06/2007 Vitamin D deficiency 08/21/2010 PAST SURGICAL HISTORY [...] Social History Tobacco Use Smoking status: Former Current packs/day: 0.00 Average packs/day: 0.5 packs/day for 20.0 years (10.0 ttl pk-yrs) Types: Cigarettes Start date: 10/21/1978 Quit date: 10/21/1998 Years since quittin.5 Smokeless tobacco: Never Vaping Use Vaping status: Never Used Substance Use Topics Alcohol use: Not Currently Drug use: No Current Outpatient Medications Medication Sig insulin aspart U-100 (NOVOLOG U-100 INSULIN ASPART) 100 unit/mL Inject 3 units with breakfast, 4 units with lunch, 6 units dinner. PLUS SS#1 (1 units for every 50 over 150 PRE MEAL blood sugar) TDD 30 units daily insulin glargine (LANTUS SOLOSTAR U-100 INSULIN) 100 unit/mL (3 mL) Inject 26 units once daily benzonatate (TESSALON PERLES) 100 mg capsule Take 1 capsule by mouth three times a day as needed for cough. glucagon (GVOKE HYPOPEN 1-PACK) 1 mg/0.2 mL auto-injector Inject 1 mg subcutaneously as needed. SYMBICORT 160-4.5 mcg/actuation inhaler Inhale 2 Puffs as instructed two times a day. zolpidem (AMBIEN) 5 mg tablet Take 0.5-1 tablets by mouth at bedtime as needed for up to 90 days. Needs larger pill dispensed to cut in half. cholecalciferol, Vitamin D3, (VITAMIN D3) 1,250 mcg (50,000 unit) cap capsule Take 1 capsule by mouth one time a week. blood sugar diagnostic (BLOOD GLUCOSE TEST) test strip Test blood sugar(s) 8 times daily--MedicallyNecessary for labile blood sugars (highs and lows). Dx: Other DM Code E10.8, E11.610 Insulin: Yes aspirin, enteric coated (ASPIRIN, ENTERIC COATED) 81 mg EC tablet Take 1 tablet by mouth two times a day. (Patient taking differently: Take 81 mg by mouth once daily.) ramipril (ALTACE) 10 mg capsule Take 1 capsule by mouth two times a day. metoprolol tartrate, short acting, (LOPRESSOR) 50 mg tablet Take 1/2 tablet by mouth twice a day furosemide (LASIX) 20 mg tablet Take 1 tablet by mouth once daily as needed. (Patient taking differently: Take 20 mg by mouth once daily as needed (edema).) amLODIPine (NORVASC) 10 mg tablet Take 0.5 tablets by mouth once daily. mometasone (ELOCON) 0.1 % cream Apply to affected area once daily as needed (for scalp psoriasis). For 14 days. Treat for recurrences. Apply at bedtime then wash off in the morning flash glucose sensor (FREESTYLE RAISSA 2 SENSOR) kit Apply new sensor every fourteen (14) days to upper arm. L. acidophilus/Bifid. animalis (DAILY PROBIOTIC ORAL) Take 1 capsule by mouth once daily. Insulin [place], Disposable, (BD ULTRA-FINE FADY PEN NEEDLE) 32 [...] pill twice daily to help with cough (Patient taking differently: Take 200-400 mg by mouth four times a day as needed (Take with food.).) No current facility-administered medications for this visit. ALLERGIES Allergen Reactions Hctz [Amiloride-Hyd* Other: See Comments Rapid heart beat, nausea, light eaded. (lasted about 12 hours after first dose) Oseltamivir Mental Status Change hallucinations Doxycycline GI Upset Escitalopram Intolerance Fatigued after just a half pill dose. Did not want to take anymore. Lysine Itching Naprosyn [Naproxen] GI Upset Nausea Lxubmlw-Xpg-Dle Red* Myalgia Tylenol-Codeine #3 * Vomiting Ventolin [Albuterol* GI Upset, Vomiting REVIEW OF SYSTEMS - POSITIVES IN BOLD GENERAL:No weight loss, malaise or fevers HEENT:Negative for frequent or significant headaches, No changes in hearing or vision, no nose bleeds or other nasal problems NECK:Negative for lumps, goiter, pain and significant neck swelling RESPIRATORY: Negative for cough, hemoptysis, wheezing, COPD, dyspnea or shortness of breath CARDIOVASCULAR: Negative for chest pain, leg swelling, hypertension, CHF or palpitations PHYSICAL EXAMINATION: BP 138/72 (BP Site: Right Arm, BP Position: Sitting, BP Cuff Size: Large Adult) Pulse 60 Resp 20 Ht 176.5 cm (5' 9.5) Wt (!) 140.2 kg (309 lb) SpO2 97% BMI 44.98 kg/m GENERAL: alert and appropriate, in no distress and well-hydrated, well nourished SKIN: no rash noted HEAD: normocephalic, no abnormality or lesion noted EYES: PERRL NECK: full ROM, no cervical LNs noted ACANTHOSIS: none noted EXTREMITIES: normal NEUROLOGIC: no obvious deficit ASSESSMENT/PLAN (E10.9) Diabetes mellitus type 1, controlled, without complications ([facility]) (primary encounter diagnosis) EXCELLENT CONTROL on blood sugars Recommend adjust prandial to 3-4-5 plus SS# BASAL to 20 units daily Patient/ had multiple questions, which were answered to their satisfaction. F/U 6 mos Latest Ref Rng 05/23/2024 Hemoglobin A1C (POCT) 4.3 - 5.6 % 6.9 ! Legend: ! Abnormal Plan: COMPREHENSIVE METABOLIC PANEL, LIPID PANEL, NONFASTING, ALBUMIN/CREATININE RATIO, URINE, HEMOGLOBIN A1C, ENDOCRINOLOGY DIETITIAN VISIT (MNT) Renetta Mcgee CNP documented in this encounterWadsworth-[facility]11-06-2024 Note[facility]-2024 Note[facility]11-05-2024 History of Present illness Narrative* Phoebe Carrion MA - 05/22/2024 2:03 PM EST POPULATION HEALTH NAVIGATION OUTREACH Action/FYI Value Hub Outreach Navigator: Patient requesting to cancel 06/15 sleep medicine appointment. Patient will reschedule at a later date, no need to call. Thank you. MyChart Active: Yes Outreach to patient Appointment cancelled per patient's request. No outreach needed per RN. Reason for Outreach Value Hub Care Gaps due: N/A Patient Contacted: Unable or unnecessary to reach patient: Updated appointment notes Navigation Signature: Phoebe Carrion MA May 22, 2024 2:03 PM * Federica Alonzo RN - 05/22/2024 10:47 AM EST Images from the original note were not included. CD Care Path Telephonic Outreach Provider Action/FYI Navigator: Patient requesting to cancel 06/15 sleep medicine appointment. Patient will reschedule at a later date, no need to call. Thank you. Patient identified by Name and Date of . Discussed care with patient. Program Details Chronic Disease Management Status: Enrolled Effective Dates: 04/04/2024 - present Responsible Staff: Federica Alonzo, RN Support and Services: Diabetes, Hypertension Program Goals Targets Target Due Completed Completed By Outcome Annual Medicare Wellness visit addressed 07/04/2024 -- -- -- Comprehensive Diabetes education provided 07/04/2024 -- -- -- Comprehensive HTN education provided 07/04/2024 -- -- -- Patient-stated goal addressed (add comment) 07/04/2024 05/22/2024 Federica Alonzo RN -- Working on going through items from when they moved. General education provided (managing stress, where to go/how to contact, etc.) 05/04/2024 04/19/2024Federica Alonzo RN -- Biannual PCP visit addressed 07/04/2024 04/19/2024 Federica Alonzo RN -- Diabetes lab care gaps addressed 07/04/2024 04/19/2024 Federica Alonzo RN -- HTN lab care gaps addressed 07/04/2024 04/19/2024 Federica Alonzo RN -- Intake assessments completed: ADLs, Fall Risk, SDOH 05/04/2024 04/04/2024 Federica Alonzo RN -- Assessments CDM Assessment Medications: Do you have any questions about taking your medications or which medications you should be taking?:No Do you need any medication refills at this time, including any of the medication you might take only when needed?: No Symptoms: Are you experiencing any new or worsening symptoms that you need to talk about today?: No ADLs No documentation this encounter Fall Risk No documentation this encounter SDOH No documentation this encounter Interventions The following were addressed during this visit: - Month 1: Schedule Diabetes Eye Exam - Month 1: Provide Diabetes Education: How to: Blood Sugar Monitoring - Month 1: Provide Diabetes Education: Importance of Blood Sugar Monitoring - Month 1: Provide Diabetes Education: Signs and Symptoms of Low Blood Sugar - Month 1: Provide Diabetes Education: How to Manage Blood Sugar - Patient-stated goal addressed (add comment) - Schedule Biannual PCP Appointment - Month 1: Provide General Education: Managing Stress & Anxiety - Month 1: Provide HTN Education: What is High Blood Pressure Disposition Based on mason apprentice, the following disposition is advised: No action needed Federica Alonzo RN May 22, 2024 10:53 AM documented in this encounterWadsworth-[facility]11-05-2024 NoteW[facility]10-25-2024 Telephone encounter Note* Telephone Encounter - Norma Devlin RN - 05/11/2024 8:54 AM EDT Call placed to Pt and spouse - verified Pt name & . Notified of below notation per Renetta Mcgee CNP. They voice understanding. Education provided to both Pt and spouse (on speaker phone) re: using this temporary sliding scale IN PLACE OF the previoussliding scale until her tooth infection is resolved. Pt is on antibiotics until Tuesday and has herfollow-up appointment with the dentist Tuesday. Advised Pt and spouse to use this temporarysliding scale today-Tuesday and if her blood sugars return to baseline by Tuesday and the dentist deems her infection as gone, she may resume using the old sliding scale, per Renetta Mcgee. They voiceunderstanding. Questions answered to Pt and spouse satisfaction. Of note, Pt reports her blood sugar was 152 at 4:20am and 158 at 7:00am after breakfast. She has only been using her OneTouch to check fingerstick blood sugars, not Freestyle Raissa CGM. Number given for after-hours line and/or triage nurse in the [facility] Norma Devlin RN May 11, 2024 8:57 AM [facility]10-25-2024 Miscellaneous Notes* Telephone Encounter - Norma Devlin RN - 05/11/2024 8:54 AM EDT Call placed to Pt and spouse - verified Pt name & . Notified of below notation per Renetta Mcgee CNP. They voice understanding. Education provided to both Pt and spouse (on speaker phone) re: using this temporary sliding scale IN PLACE OF the previoussliding scale until her tooth infection is resolved. Pt is on antibiotics until Tuesday and has herfollow-up appointment with the dentist Tuesday. Advised Pt and spouse to use this temporarysliding scale today-Tuesday and if her blood sugars return to baseline by Tuesday and the dentist deems her infection as gone, she may resume using the old sliding scale, per Renetta Mcgee. They voiceunderstanding. Questions answered to Pt and spouse satisfaction. Of note, Pt reports her blood sugar was 152 at 4:20am and 158 at 7:00am after breakfast. She has only been using her OneTouch to check fingerstick blood sugars, not Freestyle Raissa CGM. Number given for after-hours line and/or triage nurse in the case that [facility] Norma Devlin RN May 11, 2024 8:57 AM * Telephone Encounter - Renetta Mcgee APRN.CNP - 05/10/2024 6:13 PM EDT Please give patient the following TEMPORARY sliding scale while her tooth infection is present. Please double check as I requested earlier to see if the patient is double checking the Freestyle raissa results BY FINGERSTICK. Sensors have been known to run higher than actual blood sugars. 150-200 - 2 units 201-250 - 3 units 251-300 - 4 units 301-350 - 5 units * Telephone Encounter - Trudy Wang MA - 05/10/2024 5:00 PM EDT Patient and called in concerns about blood sugar readings from today. 1:15 am 224 3:00 am 273 4:35 am 260 5:25 am 283 7:45 am 271 10:30 am 284 and she took 7 units Novolog 2:20 pm 224 4:30 pm 359 Patient reports she had scrambled eggs and rye toast for breakfast today and otherwise has only been eating prepackaged salads from [facility]. Patient is concerned about blood sugars going into the 400's. asked if he should give her more insulin if that happens. I attempted to reach endocrinology nurse, but no answer. I advised the patient and to continue their normal routine with insulin as I am not able toanswer their questions about whether they should increase the insulin. asked if she should discontinue taking the antibiotic. I advised to continue taking the antibiotic. I reviewed the earlier message from Renetta Mcgee with them again. Please reach out to patient at [phone]. documented in this encounterWadsworth-[facility]10-24-2024 Telephone encounter Note * Telephone Encounter - Renetta Mcgee APRN.CNP - 05/10/2024 6:13 PM EDT Please give patient the following TEMPORARY sliding scale while her tooth infection is present. Please double check as I requested earlier to see if the patient is double checking the Freestyle raissa results BY FINGERSTICK. Sensors have been known to run higher than actual blood sugars. 150-200 - 2 units 201-250 - 3 units 251-300 - 4 units 301-350 - 5 units [facility]10-24-2024 Telephone encounter Note* Telephone Encounter - Trudy Wang MA - 05/10/2024 5:00 PM EDT Patient and called in concerns about blood sugar readings from today. 1:15 am 224 3:00 am 273 4:35 am 260 5:25 am 283 7:45 am 271 10:30 am 284 and she took 7 units Novolog 2:20 pm 224 4:30 pm 359 Patient reports she had scrambled eggs and rye toast for breakfast today and otherwise has only been eating prepackaged salads from [employer]. Patient is concerned about blood sugars going into the 400's. asked if he should give her more insulin if that happens. I attempted to reach endocrinology nurse, but no answer. I advised the patient and to continue their normal routine with insulin as I am not able toanswer their questions about whether they should increase the insulin. asked if she should discontinue taking the antibiotic. I advised to continue taking the antibiotic. I reviewed the earlier message from Renetta Mcgee with them again. Please reach out to patient at [phone]. [facility]10-24-2024 Telephone encounter Note* Telephone Encounter - Mel Morin RN - 05/10/2024 12:15 PM EDT Patient called and notified of the below recommendations. Mel Morin RN [facility]10-24-2024 Miscellaneous Notes* Telephone Encounter - Mel Morin RN - 05/10/2024 12:15 PM EDT Patient called and notified of the below recommendations. Mel Morin RN * Telephone Encounter - Renetta Mcgee APRN.CNP - 05/10/2024 9:47 AM EDT Noted, agree that infection can increase blood sugars Given patient age, I am not concerned about her acutely elevated blood sugar, tenzin with the infection. Use sliding scale as directed. * Telephone Encounter - Mel Morin RN - 05/10/2024 8:31 AM EDT Patient calling in concerned that her blood sugar was 282 this morning. Patient has taken her bloodsugar many times (about 6-7 times) since 3am due to not being able to sleep. Patient states that she took her novolog this morning as ordered and her sugar did not come down asmuch as she thought it should after 1 hour. Patient currently on an antibiotic for a dental abscess. Patient adds that she had some simple carbs yesterday but mainly stuck to her normal diet. Patient repeatedly states that she is concerned that the sliding scale she is currently on may not be enough to cover her higher blood sugars. Patient adds that yesterday morning her blood sugar was 52 and it ran in the 120s throughout the day. Patient informed that blood sugars can run higher while on antibiotics and having an infection. Patient encouraged to monitor her diet and to decrease how often she is taking her sugar to decrease her anxiety. Patient to call back if she has anymore concerns and is asking for a call back with any other recommendations or changes in her sliding scale. Mel Morin RN documented in this encounterWadsworth-Rittman [facility]10-24-2024 Telephone encounter Note * Telephone Encounter - Renetta Mcgee APRN.CNP - 05/10/2024 9:47 AM EDT Noted, agree that infection can increase blood sugars Given patient age, I am not concerned about her acutely elevated blood sugar, tenzin with the infection. Use sliding scale as directed. [facility]10-24-2024 Telephone encounter Note* Telephone Encounter - Mel Morin RN - 05/10/2024 8:31 AM EDT Patient calling in concerned that her blood sugar was 282 this morning. Patient has taken her bloodsugar many times (about 6-7 times) since 3am due to not being able to sleep. Patient states that she took her novolog this morning as ordered and her sugar did not come down asmuch as she thought it should after 1 hour. Patient currently on an antibiotic for a dental abscess. Patient adds that she had some simple carbs yesterday but mainly stuck to her normal diet. Patient repeatedly states that she is concerned that the sliding scale she is currently on may not be enough to cover her higher blood sugars. Patient adds that yesterday morning her blood sugar was 52 and it ran in the 120s throughout the day. Patient informed that blood sugars can run higher while on antibiotics and having an infection. Patient encouraged to monitor her diet and to decrease how often she is taking her sugar to decrease her anxiety. Patient to call back if she has anymore concerns and is asking for a call back with any other recommendations or changes in her sliding scale. Mel Morin, RN [facility]10-21-2024 NoteW[facility] Center10-21-2024 History of Present illness Narrative* Davon Wolfe APRN.PLATE SLITTER AND INSPECTOR - 05/07/2024 3:17 PM EDT SUBJECTIVE Attila Kidd is a 78 year old female here today for a check up on her medical problems. Chief Complaint Patient presents with: Recheck: [facility] ER 05/05/24 shortness of breath with chest discomfort was note arrhythmia Dental Problem: questions a tooth abscess. HPI Attila Kidd is a 78 year old female. She is an established patient of Octavio Reza MD. Here today for ER follow up. Seen in the ER at [facility] on 05/04/2024. Went to ER for SOB and chest discomfort. Records are in scanned documents. Chest xray was normal. EKG showed sinus with PVCs and few PACs. She had been hypoglycemic at 40 earlier that day and then rebounded to hyperglycemic. She did find a dental abscess. Wondering if that caused a lot of her issue. Going to the dentist next Tuesday. Her medications were reviewed today and her list is now up to date. Medications Current Outpatient Medications Medication Sig insulin aspart U-100 (NOVOLOG U-100 INSULIN ASPART) 100 unit/mL Inject 3 units with breakfast, 4 units with lunch, 6 units dinner. PLUS SS#1 (1 units for every 50 over 150 PRE MEAL blood sugar) TDD 30 units daily insulin glargine (LANTUS SOLOSTAR U-100 INSULIN) 100 unit/mL (3 mL) Inject 26 units once daily benzonatate (TESSALON PERLES) 100 mg capsule Take 1 capsule by mouth three times a day as needed for cough. glucagon (GVOKE HYPOPEN 1-PACK) 1 mg/0.2 mL auto-injector Inject 1 mg subcutaneously as needed. SYMBICORT 160-4.5 mcg/actuation inhaler Inhale 2 Puffs as instructed two times a day. zolpidem (AMBIEN) 5 mg tablet Take 0.5-1 tablets by mouth at bedtime as needed for up to 90 days. Needs larger pill dispensed to cut in half. cholecalciferol, Vitamin D3, (VITAMIN D3) 1,250 mcg (50,000 unit) cap capsule Take 1 capsule by mouth one time a week. aspirin, enteric coated (ASPIRIN, ENTERIC COATED) 81 mg EC tablet Take 1 tablet by mouth two times a day. (Patient taking differently: Take 81 mg by mouth once daily.) ramipril (ALTACE) 10 mg capsule Take 1 capsule by mouth two times a day. metoprolol tartrate, short acting, (LOPRESSOR) 50 mg tablet Take 1/2 tablet by mouth twice a day furosemide (LASIX) 20 mg tablet Take 1 tablet by mouth once daily as needed. (Patient taking differently: Take 20 mg by mouth once daily as needed (edema).) amLODIPine (NORVASC) 10 mg tablet Take 0.5 tablets by mouth once daily. mometasone (ELOCON) 0.1 % cream Apply to affected area once daily as needed (for scalp psoriasis). For 14 days. Treat for recurrences. Apply at bedtime then wash off in the morning albuterol HFA (PROVENTIL HFA, VENTOLIN HFA) 90 mcg/actuation inhaler Inhale 2 Puffs as instructed four times daily as needed. FOR WHEEZING AND SHORTNESS OF BREATH. ibuprofen 200 mg tablet Take 1-2 tablets by mouth four times daily as needed (Take with food.). --currently only needing 1 pill twice daily to help with cough (Patient taking differently: Take 200-400 mg by mouth four times a day as needed (Take with food.).) amoxicillin (AMOXIL) 875 mg tablet Take 1 tablet by mouth two times a day for 7 days. blood sugar diagnostic (BLOOD GLUCOSE TEST) test strip Test blood sugar(s) 8 times daily--MedicallyNecessary for labile blood sugars (highs and lows). Dx: Other DM Code E10.8, E11.610 Insulin: Yes flash glucose sensor (FREESTYLE RAISSA 2 SENSOR) kit Apply new sensor every fourteen (14) days to upper arm. L. acidophilus/Bifid. animalis (DAILY PROBIOTIC ORAL) Take 1 capsule by mouth once daily. (Patient not taking: Reported on 05/07/2024) Insulin [place], Disposable, (BD ULTRA-FINE FADY PEN NEEDLE) 32 gauge x 5/32 Use one needle for each dose. 1-2 /day. COMPOUNDED PRESCRIPTION Bi-PAP nose pads. (G47.33) THAIS treated with BiPAP No current facility-administered medications for this visit. ALLERGIES Allergen Reactions Hctz [Amiloride-Hyd* Other: See Comments Rapid heart beat, nausea, light eaded. (lasted about 12 hours after first dose) Oseltamivir Mental Status Change hallucinations Doxycycline GI Upset Escitalopram Intolerance Fatigued after just a half pill dose. Did not want to take anymore. Lysine Itching Naprosyn [Naproxen] GI Upset Nausea Nohnvco-Akj-Vqi Red* Myalgia Tylenol-Codeine #3 * Vomiting Ventolin [Albuterol* GI Upset, Vomiting ACTIVE PROBLEM LIST Nocturnal Hypoxemia - 09/22/2023 Major Depressive Disorder, Recurrent, in Full Remission ([facility]) - 06/25/2023 Palpitations - 05/16/2023 Paroxysmal Svt (Supraventricular Tachycardia) ([facility]) - 11/12/2022 Adverse Reaction to Hmg-Coa Reductase Inhibitor - 06/07/2022 Comment: Historical: see allergies Stasis Edema of Both Lower Extremities - 04/27/2018 Morbid Obesity With Bmi of 45.0-49.9, Adult ([facility]) - 04/18/2017 Asthma - 05/06/2014 Vitamin D Deficiency - 08/21/2010 Charcot Foot Due to Diabetes Mellitus ([facility]) Debility - 09/30/2009 Rosacea - 09/06/2007 Insomnia, Unspecified - 06/01/2007 Type I Diabetes Mellitus With Manifestations ([facility]) - 09/15/2005 Essential Hypertension - 09/15/2005 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 Had around 3yrs of tx. Mitral Valve 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) Anxiety State Depressive Disorder, Not Elsewhere Classified Esophageal Reflux Social History Tobacco Use Smoking status: Former Current packs/day: 0.00 Average packs/day: 0.5 packs/day for 20.0 years (10.0 ttl pk-yrs) Types: Cigarettes Start date: 10/21/1978 Quit date: 10/21/1998 Years since quittin.5 Smokeless tobacco: Never Vaping Use Vaping status: Never Used Substance Use Topics Alcohol use: Not Currently Drug use: No Review of Systems Respiratory: Negative. Cardiovascular: Negative. OBJECTIVE BP 140/72 Pulse 60 Wt 311 lb 4.6 oz (141.2kg) SpO2 97% Physical Exam Vitals and nursing note reviewed. Constitutional: General: She is awake. She is not in acute distress. Appearance: Normal appearance. She is well-developed and well-groomed. She is not ill-appearing, toxic-appearing or diaphoretic. [...] respiratory distress. Breath sounds: Normal breath sounds. Musculoskeletal: Cervical back: Neck supple. Skin: General: Skin is warm and [...] memory normal. Judgment: Judgment normal. ASSESSMENT/PLAN: 1. Dental abscess - ICD9: 522.5, ICD10: K04.7 (primary diagnosis) Start amoxicillin, follow up with dentist. - AMOXICILLIN 875 MG TABLET 2. 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) - ICD9: 250.91, ICD10: E10.8 Discussed monitoring, adjusting for meal changes. 3. PAC (premature atrial contraction) - ICD9: 427.61, ICD10: I49.1 Few on EKG 4. PVC (premature ventricular contraction) - ICD9: 427.69, ICD10: I49.3 Seen on EKG, previously noted on prior EKGs Medical Decision Making: Data: Unique source(s) for external note(s) reviewed: 1 Unique test result(s) reviewed: 2 Risk: Moderate: Drug management Medical Decision Making Level: 4 - Moderate Portions of this note have been entered by ancillary staff. I have reviewed and when necessary edited, so that they are an adequate record of my encounter with this patient Please note that parts of this document were created using voice recognition software and therefore may contain grammatical errors. Patient verbalizes understanding of instructions from today's visit and in agreement with treatmentplan. Questions answered. Agrees to call the office if questions, concerns of issues with acute symptoms not improving or if they worsen. See diagnoses and orders for additional plan(s). Allergies and medications were reviewed, list was updated, and refills given if needed. Past medical, surgical, social, and family history reviewed and updated as appropriate. Encouraged proper diet & exercise as well as compliance with taking medications. Age- appropriate health preventative measures were discussed. Return if symptoms worsen or fail to improve, for Keep next scheduled appointment.. Davon Wolfe APRN-FABIO documented in this encounterWadsworth-Rittman [facility]10-08-2024 History of Present illness Narrative* Charis Lucas [facility] - 04/24/2024 9:30 AM EDT /Primary Care Pharmacy Visit CC (Reason for Consult): (E10.8) 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) (primary encounter diagnosis) Goal(s): A1c <8% Last Collaborating Provider Visit: 02/15/24 with Marcela Mcgee CNP Attila Kidd is a 78 year old female presenting for follow up visit telephone call. Patient consents to pharmacy collaborative practice agreement. Last Pharmacy Visit: 04/10/24 - advised to hold sliding scale with mealtime insulin doses for now (if BGs<200 pre-meal) HPI: Reports doing well On speaker phone with Elijah States has had some lower readings in the morning, eats some yogurt when BG is lower Current DM Medications: Lantus 30 units once daily at bedtime Novolog 4 units with breakfast, 4 units with lunch and 6 units with dinner + SS#1 Diet Denies any recent changes Tends to eat something to sweet like yogurt with a lower reading GLYCEMIC CONTROL: Glucometer present at visit: Yes Hypoglycemia: Yes Blood Glucose Log: Date Fasting AM 2 hr PP Before Lunch 2 hr PP Before Dinner 2 hr PP Bedtime 04/24/2024 155/5 54, 153 04/23/2024 93, 92/4 51, 128 193/4 184 146/6 94, 135 04/22/2024 111, 141/4 154 177/5 197 192, 309/9 124 156 04/21/2024 86, 118/4 161/5 109 262/7 152, 88 128, 142 04/20/2024 189/5 205/6 125 151/5 179 187 04/19/2024 83, 126/3 76, 103 174/5 201 219/6 119 62, 106, 190 04/18/2024 67, 121/2 70, 124 153, 312/4 215 186/6 149 179 AVG 115 101 177 171 209 129 143 Past medical history reviewed. ALLERGIES Allergen Reactions Hctz [Amiloride-Hyd* Other: See Comments Rapid heart beat, nausea, light eaded. (lasted about 12 hours after first dose) Oseltamivir Mental Status Change hallucinations Doxycycline GI Upset Escitalopram Intolerance Fatigued after just a half pill dose. Did not want to take anymore. Lysine Itching Naprosyn [Naproxen] GI Upset Nausea Svjvniu-Brt-Xjq Red* Myalgia Tylenol-Codeine #3 * Vomiting Ventolin [Albuterol* GI Upset, Vomiting Current Outpatient Medications Medication Sig Dispense Refill benzonatate (TESSALON PERLES) 100 mg capsule Take 1 capsule by mouth three times a day as needed for cough. 21 capsule 0 glucagon (GVOKE HYPOPEN 1-PACK) 1 mg/0.2 mL auto-injector Inject 1 mg subcutaneously as needed. 0.2mL 3 insulin aspart U-100 (NOVOLOG U-100 INSULIN ASPART) 100 unit/mL Inject 4 units with breakfast, 4 units with lunch, 6 units dinner. PLUS SS#1 (1 units for every 50 over 150 PRE MEAL blood sugar) TDD 30 units daily 10 mL 3 insulin glargine (LANTUS SOLOSTAR U-100 INSULIN) 100 unit/mL (3 mL) Inject 27 units once daily 27 mL 3 SYMBICORT 160-4.5 mcg/actuation inhaler Inhale 2 Puffs as instructed two times a day. 11 g 5 zolpidem (AMBIEN) 5 mg tablet Take 0.5-1 tablets by mouth at bedtime as needed for up to 90 days. Needs larger pill dispensed to cut in half. 30 tablet 2 cholecalciferol, Vitamin D3, (VITAMIN D3) 1,250 mcg (50,000 unit) cap capsule Take 1 capsule by mouth one time a week. 12 capsule 4 blood sugar diagnostic (BLOOD GLUCOSE TEST) test strip Test blood sugar(s) 8 times daily--MedicallyNecessary for labile blood sugars (highs and lows). Dx: Other DM Code E10.8, E11.610 Insulin: Yes 200 Strip 11 aspirin, enteric coated (ASPIRIN, ENTERIC COATED) 81 mg EC tablet Take 1 tablet by mouth two times a day. (Patient taking differently: Take 81 mg by mouth once daily.) ramipril (ALTACE) 10 mg capsule Take 1 capsule by mouth two times a day. 180 capsule 3 metoprolol tartrate, short acting, (LOPRESSOR) 50 mg tablet Take 1/2 tablet by mouth twice a day 90tablet 3 furosemide (LASIX) 20 mg tablet Take 1 tablet by mouth once daily as needed. (Patient taking differently: Take 20 mg by mouth once daily as needed (edema).) 90 tablet 3 amLODIPine (NORVASC) 10 mg tablet Take 0.5 tablets by mouth once daily. 90 tablet 3 mometasone (ELOCON) 0.1 % cream Apply to affected area once daily as needed (for scalp psoriasis). For 14 days. Treat for recurrences. Apply at bedtime then wash off in the morning 45 g 1 flash glucose sensor (FREESTYLE RAISSA 2 SENSOR) kit Apply new sensor every fourteen (14) days to upper arm. 6 Each 4 L. acidophilus/Bifid. animalis (DAILY PROBIOTIC ORAL) Take 1 capsule by mouth once daily. Insulin [place], Disposable, (BD ULTRA-FINE FADY PEN NEEDLE) 32 gauge x Use one needle for each dose. 1-2 /day. 100 Each 11 albuterol HFA (PROVENTIL HFA, VENTOLIN HFA) 90 mcg/actuation inhaler Inhale 2 Puffs as instructed four times daily as needed. FOR WHEEZING AND SHORTNESS OF BREATH. 6.7 g 11 COMPOUNDED PRESCRIPTION Bi-PAP nose pads. (G47.33) THAIS treated with BiPAP 2 Device 1 ibuprofen 200 mg tablet Take 1-2 tablets by mouth four times daily as needed (Take with food.). --currently only needing 1 pill twice daily to help with cough (Patient taking differently: Take 200-400 mg by mouth four times a day as needed (Take with food.).) No current facility-administered medications for this visit. Pill bottles are not present. Adherence: denies missed doses. Rx coverage: Payor: [facility] MEDICARE / Plan: [facility] MEDIC[facility] PPO / Product Type: PPO / Medications affordable? Yes PHARMACOTHERAPY PREVENTATIVE MEDS: On JOEY/ARB: Yes On Statin: No On ASA: Yes EXAM: There were no vitals taken for this visit. Last 3 Encounter BP Readings: Date: BP: 04/18/2024 136/84 03/07/2024 132/82 02/13/2024 130/80 Wt: 143.9 kg (317 lb 3.9 oz) BMI: 46.18 kg/(m^2) LABS: Lab Results Component Value Date HBA1C 7.7 12/07/2023 HBA1C 7.7 09/01/2023 HBA1C 7.4 05/16/2023 HBA1C 7.8 09/02/2021 HBA1C 7.4 05/04/2021 HBA1C 8.4 01/06/2021 Glucose 114 01/27/2024 BUN 18 01/27/2024 Creatinine, Whole Blood (iSTAT) 0.77 01/27/2024 Sodium 139 01/27/2024 Potassium 4.1 01/27/2024 Chloride 102 01/27/2024 CO2 28 01/27/2024 Protein, Total 6.7 01/27/2024 Albumin 3.9 01/27/2024 Calcium 9.4 01/27/2024 Alkaline Phosphatase 101 01/27/2024 Bilirubin, Total 0.8 01/27/2024 AST 14 01/27/2024 ALT 12 01/27/2024 Lab Results Component Value Date CHOL 175 01/27/2024 CHOL 180 05/04/2021 LDL 98 01/27/2024 LDL 105 05/04/2021 HDL 62 01/27/2024 HDL 58 05/04/2021 TG 77 01/27/2024 TG 84 05/04/2021 Albumin/Creat Ratio (mg/g) Date Value 09/02/2023 <15 eGFR-All Other Races (.) Date Value 09/11/2021 >60 Estimated Glomerular Filtration Rate (mL/min/1.73m ) Date Value 01/27/2024 79 ASSESSMENT/PLAN: 1. 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) - ICD9: 250.91, ICD10: E10.8 - Improving control - Decrease Lantus to 26 units once daily - Decrease insulin aspart with breakfast to 3 units, continue 4 units with lunch and 6 units with dinner, plus sliding scale #1 - Blood glucose monitoring on a four times daily schedule - Counseled on healthy diet and regular exercise - Discussed diabetic education issues of hypoglycemic/hyperglycemic symptoms - Follow up in 2 months, sooner should any other issues arise. Follow Up: Next PCP visit: 06/11/24 Next endo visit: 05/23/24 Next PharmD visit: 06/19/24 Charis Lucas, Willie, BCACP Primary Care Clinical Global Sales Manager documented in this encounterWadsworth-[facility]10-08-2024 [facility]24 NoteW[facility]10-[facility]-2024 History of Present illness Narrative* Federica Alonzo RN - 04/19/2024 1:11 PM EDT CDM ENROLLMENT Provider Action / FYI: Patient identified by name and date of . Discussed care with patient. Program Details Chronic Disease Management Status: Enrolled Effective Dates: 04/04/2024 - present Responsible Staff: Federica Alonzo, RN Support and Services: Diabetes, Hypertension Assessments No documentation this encounter Interventions The following were addressed during this visit: - Diabetes lab care gaps addressed - Month 1: Schedule/Order HbA1C Lab - Month 1: Schedule/Order Lipid Panel Lab - Month 3: Schedule/Order Urine Albumin Creatinine lab - Biannual PCP visit addressed - General education provided (managing stress, where to go/how to contact, etc.) - Month 1: Provide General Education: Where to Go for Care - Month 1: Provide General Education: How to Contact Your Physician Team - Develop a Patient-Stated Goal (add to Target comments) - HTN lab care gaps addressed - Month 1: Provide HTN Education: When to call your Doctor, When to seek Emergency Care - Month 3: Schedule/Order BMP Lab Federica Alonzo RN April 19, 2024 1:25 PM documented in this encounterWadsworth-[facility]10-02-2024 History of Present illness Narrative* Opal Joseph RT(Herbert) - 04/18/2024 9:40 AM EDT Radiology Service Progress Note PATIENT NAME: Attila Kidd DATE OF SERVICE: April 18, 2024 TIME: 9:50 AM PATIENT IDENTITY VERIFICATION COMPLETED USING TWO (2) IDENTIFIERS: Name and Date of confirmedby patient verbally. FALL SCREENING: Has the patient had 2 falls in the last year or 1 fall with injury or currently using an Ambulatory Assistive Device (Walker, Cane, Wheelchair, Crutches, etc.)? Yes, Patient High Riskfor Falls What interventions were put in place to prevent falls during this visit? Instructed Patient to Callfor Help if Needed, Offered Assistance with Transfers/Clothing, and Increased Observations by Caregivers PATIENT GENDER DATA: Female. status: : No status: NO. PATIENT RELEVANT IMPLANT DATA REVIEWED: Yes PATIENT PRESENTS WITH AN IMPLANTABLE OR ATTACHED RHEUMATOLOGIST: No RADIOLOGY DEPARTMENT: General X-ray: Exam(s) Completed: Chest X-Ray PERIPHERAL IV DATA: Not applicable SIGNED BY: PAULINA Garcia) April 18, 2024 9:50 AM documented in this encounterWadsworth-[facility]10-02-2024 [facility]10-02-2024 NoteW[facility]10-02-2024 History of Present illness Narrative* Smiley Prieto APRN.PLATE SLITTER AND INSPECTOR - 04/18/2024 9:30 AM EDT This note was created using NoteWriter. Subjective Attila Kidd is a 78 year old female. 78 year old female with PMH HTN, hyperlipidemia, SVT, asthma, GERD, DM, presents for illness. Acute onset 2 days ago +cough +sneezing +lymph nodes Denies sore throat Denies eye complaints Denies fever or chills Denies body aches or fatigue Denies dyspnea Denies CP Denies tobacco usage The history is provided by the patient. No manager language was used. Cough This is a new problem. The current episode started 2 days ago. The problem occurs constantly. The problem has been gradually worsening. The cough is Non- productive. There has been no fever. Pertinentnegatives include no chest pain, no chills, no sweats, no weight loss, no ear congestion, no ear pain, no headaches, no rhinorrhea, no sore throat, no myalgias, no shortness of breath, no wheezing and no eye redness. She has tried nothing for the symptoms. The treatment provided no relief. She is not a smoker. Her past medical history does not include bronchitis, pneumonia, bronchiectasis, COPD, emphysema or asthma. PAST MEDICAL HISTORY Diagnosis Date Adverse reaction [...] 10/12/2006 Rosacea 09/06/2007 Vitamin D deficiency 08/21/2010 PAST SURGICAL HISTORY [...] Right mid check TONSILLECTOMY HX childhood ALLERGIES Hctz [Amiloride-Hydrochlorothiazide], Oseltamivir, Doxycycline, Escitalopram, Lysine, Naprosyn [Naproxen], Osqjkob-Fnn-Fuc Reductase Inhibitors, Tylenol-Codeine #3 [Acetaminophen-Codeine], and Ventolin [Albuterol Sulfate] MEDICATIONS glucagon (GVOKE HYPOPEN 1-PACK) 1 mg/0.2 mL auto-injector Inject 1 mg subcutaneously as needed. insulin aspart U-100 (NOVOLOG U-100 INSULIN ASPART) 100 unit/mL Inject 4 units with breakfast, 4 units with lunch, 6 units dinner. PLUS SS#1 (1 units for every 50 over 150 PRE MEAL blood sugar) TDD 30 units daily insulin glargine (LANTUS SOLOSTAR U-100 INSULIN) 100 unit/mL (3 mL) Inject 27 units once daily SYMBICORT 160-4.5 mcg/actuation inhaler Inhale 2 Puffs as instructed two times a day. zolpidem (AMBIEN) 5 mg tablet Take 0.5-1 tablets by mouth at bedtime as needed for up to 90 days. Needs larger pill dispensed to cut in half. cholecalciferol, Vitamin D3, (VITAMIN D3) 1,250 mcg (50,000 unit) cap capsule Take 1 capsule by mouth one time a week. blood sugar diagnostic (BLOOD GLUCOSE TEST) test strip Test blood sugar(s) 8 times daily--MedicallyNecessary for labile blood sugars (highs and lows). Dx: Other DM Code E10.8, E11.610 Insulin: Yes aspirin, enteric coated (ASPIRIN, ENTERIC COATED) 81 mg EC tablet Take 1 tablet by mouth two times a day. (Patient taking differently: Take 81 mg by mouth once daily.) ramipril (ALTACE) 10 mg capsule Take 1 capsule by mouth two times a day. metoprolol tartrate, short acting, (LOPRESSOR) 50 mg tablet Take 1/2 tablet by mouth twice a day furosemide (LASIX) 20 mg tablet Take 1 tablet by mouth once daily as needed. (Patient taking differently: Take 20 mg by mouth once daily as needed (edema).) amLODIPine (NORVASC) 10 mg tablet Take 0.5 tablets by mouth once daily. mometasone (ELOCON) 0.1 % cream Apply to affected area once daily as needed (for scalp psoriasis). For 14 days. Treat for recurrences. Apply at bedtime then wash off in the morning flash glucose sensor (FREESTYLE RAISSA 2 SENSOR) kit Apply new sensor every fourteen (14) days to upper arm. L. acidophilus/Bifid. animalis (DAILY PROBIOTIC ORAL) Take 1 capsule by mouth once daily. Insulin [place], Disposable, (BD ULTRA-FINE FADY PEN NEEDLE) 32 gauge x 532 Use one needle for each dose. 1-2 [...] pill twice daily to help with cough (Patient taking differently: Take 200-400 mg by mouth four times a day as needed (Take with food.).) benzonatate (TESSALON PERLES) 100 mg capsule Take 1 capsule by mouth three times a day as needed for cough. FAMILY HISTORY Problem Relation Age of Onset Heart Father Lipids Father Lipids Mother Hypertension Mother Heart Mother Breast Cancer Maternal Grandmother other (MS) Sister No Known Problems Son Social History Tobacco Use Smoking status: Former Current packs/day: 0.00 Average packs/day: 0.5 packs/day for 20.0 years (10.0 ttl pk-yrs) Types: Cigarettes Start date: 10/21/1978 Quit date: 10/21/1998 Years since quittin.5 Smokeless tobacco: Never Vaping Use Vaping status: Never Used Substance Use Topics Alcohol use: Not Currently Drug use: No Review of Systems Constitutional: Negative for chills and weight loss. HENT: Negative for ear pain, rhinorrhea and sore throat. Eyes: Negative for redness. Respiratory: Positive for cough. Negative for shortness of breath and wheezing. Cardiovascular: Negative for chest pain. Musculoskeletal: Negative for myalgias. Neurological: Negative for headaches. Objective BP 136/84 Pulse 60 Temp 36.3 C (97.3 F) (Tympanic) Resp 18 Wt (!) 143.9 kg (317 lb 3.9 oz) SpO2 97% BMI 46.18 kg/m Physical Exam Vitals and nursing note reviewed. Constitutional: General: She is not in acute distress. Appearance: Normal appearance. She is obese. She is not ill-appearing, toxic- appearing or diaphoretic. HENT: Head: Normocephalic and atraumatic. Right Ear: Ear canal and external ear normal. Left Ear: Ear canal and external ear normal. Nose: Nose normal. No congestion or rhinorrhea. Mouth/Throat: Mouth: Mucous membranes are moist. Pharynx: Posterior oropharyngeal erythema present. No oropharyngeal exudate. Eyes: General: Right eye: No discharge. Left eye: No discharge. Extraocular Movements: Extraocular movements intact. Conjunctiva/sclera: Conjunctivae normal. Pupils: Pupils are equal, round, and reactive to light. Cardiovascular: Rate and Rhythm: Normal rate and regular rhythm. Pulses: Normal pulses. Heart sounds: Normal heart sounds. No murmur heard. No friction rub. Pulmonary: Effort: Pulmonary effort is normal. No respiratory distress. Breath sounds: Normal breath sounds. No stridor. No wheezing, rhonchi or rales. Chest: Chest wall: No tenderness. Abdominal: General: Abdomen is flat. There is no distension. Palpations: Abdomen is soft. There is no mass. Tenderness: There is no abdominal tenderness. There is no right CVA tenderness, left CVA tenderness, guarding or rebound. Hernia: No hernia is present. Musculoskeletal: General: No swelling, tenderness, deformity or signs of injury. Normal range of motion. Cervical back: Normal range of motion and neck supple. No rigidity. Right lower leg: No edema. Left lower leg: No edema. Lymphadenopathy: Cervical: Cervical adenopathy present. Skin: General: Skin is warm and dry. Capillary Refill: Capillary refill takes less than 2 seconds. Coloration: Skin is not jaundiced or pale. Findings: No bruising, erythema, lesion or rash. Neurological: General: No focal deficit present. Mental Status: She is alert and oriented to person, place, and time. Cranial Nerves: No cranial nerve deficit. Sensory: No sensory deficit. Motor: No weakness. Coordination: Coordination normal. Gait: Gait normal. Psychiatric: Mood and Affect: Mood normal. Behavior: Behavior normal. Thought Content: Thought content normal. Judgment: Judgment normal. Assessment and Plan ASSESSMENT/PLAN: 1. Acute cough - ICD9: 786.2, ICD10: R05.1 (primary diagnosis) X 2 days Lungs CTA, but somewhat limited related to body habitus - XR CHEST 2V FRONTAL/LAT-negative - COVID & INFLUENZA A/B & RSV PCR, ROUTINE-pending 2. URI, acute - ICD9: 465.9, ICD10: J06.9 X 2 days No red flags - Discussed viral etiology and rationale for treatment. - Symptomatic treatment with prn analgesia - Supportive care with fluids and rest - The patient may also use warm salt water gargles, throat lozenges and/or OTC throat spray as needed, nasal saline gtts and suction prn, and RX Tessalon Perles. 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 Patient consents to pharmacy collaborative practice agreement. Last Pharmacy Visit: 02/28/24 HPI: Reports doing okay States she was switched from lispro to aspart a couple days ago States she has had some low blood sugar readings just in the last 2 days; denies any recent other changes also present on phone call to report BG readings States she took 25 units of lantus the other night because of being scared of going too low overnight No changes in diet recently Current DM Medications: Lantus 30 units once daily at bedtime Novolog 4 units with breakfast, 4 units with lunch and 6 units with dinner + SS#1 GLYCEMIC CONTROL: Glucometer present at visit: Yes Hypoglycemia: Yes SMBGS (Fingersticks) Date Fasting AM 2 hr PP Before Lunch 2 hr PP Before Dinner 2 hr PP Bedtime 04/10 75, 169/4 54, 62,130 04/09 53, 134/4 222/6 193 198/7 67, 109 189 04/08* 171, 200/5 150 134/4 170 172/7 197 155 04/07 214/6 218 234/6 168 201/8 160 143 04/06 198, 161/5 143 138/4 125 209/6 218 04/05 151, 159/5 103/4 121 158/7 206 237 AVG 153 126 166 155 187 178 181 Past medical history reviewed. ALLERGIES Allergen Reactions Hctz [Amiloride-Hyd* Other: See Comments Rapid heart beat, nausea, light eaded. (lasted about 12 hours after first dose) Oseltamivir Mental Status Change hallucinations Doxycycline GI Upset Escitalopram Intolerance Fatigued after just a half pill dose. Did not want to take anymore. Lysine Itching Naprosyn [Naproxen] GI Upset Nausea Wzbekqh-Miu-Lur Red* Myalgia Tylenol-Codeine #3 * Vomiting Ventolin [Albuterol* GI Upset, Vomiting Current Outpatient Medications Medication Sig Dispense Refill glucagon (GVOKE HYPOPEN 1-PACK) 1 mg/0.2 mL auto-injector Inject 1 mg subcutaneously as needed. 0.2mL 3 insulin aspart U-100 (NOVOLOG U-100 INSULIN ASPART) 100 unit/mL Inject 4 units with breakfast, 4 units with lunch, 6 units dinner. PLUS SS#1 (1 units for every 50 over 150 PRE MEAL blood sugar) TDD 30 units daily 10 mL 3 insulin glargine (LANTUS SOLOSTAR U-100 INSULIN) 100 unit/mL (3 mL) Inject 27 units once daily 27 mL 3 SYMBICORT 160-4.5 mcg/actuation inhaler Inhale 2 Puffs as instructed two times a day. 11 g 5 zolpidem (AMBIEN) 5 mg tablet Take 0.5-1 tablets by mouth at bedtime as needed for up to 90 days. Needs larger pill dispensed to cut in half. 30 tablet 2 cholecalciferol, Vitamin D3, (VITAMIN D3) 1,250 mcg (50,000 unit) cap capsule Take 1 capsule by mouth one time a week. 12 capsule 4 blood sugar diagnostic (BLOOD GLUCOSE TEST) test strip Test blood sugar(s) 8 times daily--MedicallyNecessary for labile blood sugars (highs and lows). Dx: Other DM Code E10.8, E11.610 Insulin: Yes 200 Strip 11 aspirin, enteric coated (ASPIRIN, ENTERIC COATED) 81 mg EC tablet Take 1 tablet by mouth two times a day. (Patient taking differently: Take 81 mg by mouth once daily.) ramipril (ALTACE) 10 mg capsule Take 1 capsule by mouth two times a day. 180 capsule 3 metoprolol tartrate, short acting, (LOPRESSOR) 50 mg tablet Take 1/2 tablet by mouth twice a day 90tablet 3 furosemide (LASIX) 20 mg tablet Take 1 tablet by mouth once daily as needed. (Patient taking differently: Take 20 mg by mouth once daily as needed (edema).) 90 tablet 3 amLODIPine (NORVASC) 10 mg tablet Take 0.5 tablets by mouth once daily. 90 tablet 3 mometasone (ELOCON) 0.1 % cream Apply to affected area once daily as needed (for scalp psoriasis). For 14 days. Treat for recurrences. Apply at bedtime then wash off in the morning 45 g 1 flash glucose sensor (FREESTYLE RAISSA 2 SENSOR) kit Apply new sensor every fourteen (14) days to upper arm. (Patient not taking: Reported on 01/02/2024) 6 Each 4 L. acidophilus/Bifid. animalis (DAILY PROBIOTIC ORAL) Take 1 capsule by mouth once daily. (Patient not taking: Reported on 01/12/2024) Insulin [place], Disposable, (BD ULTRA-FINE FADY PEN NEEDLE) 32 gauge x 32 Use one needle for each dose. 1-2 /day. 100 Each 11 albuterol HFA (PROVENTIL HFA, VENTOLIN HFA) 90 mcg/actuation inhaler Inhale 2 Puffs as instructed four times daily as needed. FOR WHEEZING AND SHORTNESS OF BREATH. 6.7 g 11 COMPOUNDED PRESCRIPTION Bi-PAP nose pads. (G47.33) THAIS treated with BiPAP 2 Device 1 ibuprofen 200 mg tablet Take 1-2 tablets by mouth four times daily as needed (Take with food.). --currently only needing 1 pill twice daily to help with cough (Patient taking differently: Take 200-400 mg by mouth four times a day as needed (Take with food.).) No current facility-administered medications for this visit. Pill bottles are not present. Adherence: denies missed doses. Rx coverage: Payor: [facility] MEDIC[facility] / Plan: [facility] MEDIC[facility] PPO / Product Type: PPO / Medications affordable? Yes PHARMACOTHERAPY PREVENTATIVE MEDS: On JOEY/ARB: Yes On Statin: No On ASA: Yes EXAM: There were no vitals taken for this visit. Last 3 Encounter BP Readings: Date: BP: 03/07/2024 132/82 02/13/2024 130/80 01/02/2024 152/82 Wt: 142.9 kg (315 lb) BMI: 45.85 kg/(m^2) LABS: Lab Results Component Value Date HBA1C 7.7 12/07/2023 HBA1C 7.7 09/01/2023 HBA1C 7.4 05/16/2023 HBA1C 7.8 09/02/2021 HBA1C 7.4 05/04/2021 HBA1C 8.4 01/06/2021 Glucose 114 01/27/2024 BUN 18 01/27/2024 Creatinine, Whole Blood (iSTAT) 0.77 01/27/2024 Sodium 139 01/27/2024 Potassium 4.1 01/27/2024 Chloride 102 01/27/2024 CO2 28 01/27/2024 Protein, Total 6.7 01/27/2024 Albumin 3.9 01/27/2024 Calcium 9.4 01/27/2024 Alkaline Phosphatase 101 01/27/2024 Bilirubin, Total 0.8 01/27/2024 AST 14 01/27/2024 ALT 12 01/27/2024 Lab Results Component Value Date CHOL 175 01/27/2024 CHOL 180 05/04/2021 LDL 98 01/27/2024 LDL 105 05/04/2021 HDL 62 01/27/2024 HDL 58 05/04/2021 TG 77 01/27/2024 TG 84 05/04/2021 Albumin/Creat Ratio (mg/g) Date Value 09/02/2023 <15 eGFR-All Other Races (.) Date Value 09/11/2021 >60 Estimated Glomerular Filtration Rate (mL/min/1.73m ) Date Value 01/27/2024 79 ASSESSMENT/PLAN: 1. 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) - ICD9: 250.91, ICD10: E10.8 - Improving control - Continue current medications - advised to hold sliding scale with mealtime insulin doses for now (if BGs<200 pre-meal) - Blood glucose monitoring on a four times daily schedule - Counseled on healthy diet and regular exercise - Discussed diabetic education issues of hypoglycemic/hyperglycemic symptoms - Follow up in 2 weeks, sooner should any other issues arise. Follow Up: Next PCP visit: 06/11/24 Next Endo visit: 05/23/24 Next PharmD visit: 04/24/24 Charis Lucas, Willie, BCACP Primary Care Clinical Global Sales Manager documented in this encounterWadsworth-Rittman [facility]09-24-2024 NoteW[facility]09-23-2024 NoteW[facility]09-23-2024 History of Present illness Narrative* Renetta Mcgee APRN.CNP - 04/09/2024 10:51 AM EDT Patient's request for medication is as follows Requested Prescriptions Signed Prescriptions Disp Refills glucagon (GVOKE HYPOPEN 1-PACK) 1 mg/0.2 mL auto-injector 0.2 mL 3 Sig: Inject 1 mg subcutaneously as needed. Order entered - please phone pharmacy and notify patient. Renetta Mcgee APRN.CNP documented in this encounterWadsworth-Rittman [facility]09-23-2024 History of Present illness Narrative* Sergo Perez RD - 04/09/2024 10:[address] [facility] Medical Nutrition Therapy Visit Type: In-person Patient states reason for visit: Type 1 Diabetes Management Initial DEMOGRAPHICS: Co-Morbidities: PAST MEDICAL HISTORY Diagnosis Date Adverse reaction [...] 10/12/2006 Rosacea 09/06/2007 Vitamin D deficiency 08/21/2010 Activity: Do you do a regular exercise Yes, was using stationary bike daily- ceased over the past week d/t frustration of weight stall after losing 10 lbs. Symptoms: Patient's symptoms are as follows: Weight Concerns: weight loss Blood sugar regulation Diet History: Breakfast: [place], eggs, coffee Lunch: salad with turkey deli meat, cheese, ranch dressing, croutons, and shredded carrots Dinner: sloppy joes, OR salad, OR pizza Snack: yoplait yogurt Fluids coffee, water Dining/eating out? Occasional (local pizza restaurant) Allergies: No Food Allergy Patient / Provider Comments: - Current DM medications: Lantus 27 units, Novolog 4 units w/ b-fst/lunch and 6 units with dinner plus SS#1. - Has OneTouch BGM; monitoring BG 4 times per day -- FB-200 mg/dl -- Pre-prandial: Lunch 130-140 mg/dl; Dinner 170-210 mg/dl - Hypoglycemic events: one event this morning treats low BG with regular Gatorade or yoplait regular yogurt - Initial DM dx: 2005 - Physical Activity options: stationary bike - Freestyle raissa 2 CGM ordered however pt not currently using. Medications: Current Outpatient Medications Medication Sig insulin aspart U-100 (NOVOLOG U-100 INSULIN ASPART) 100 unit/mL Inject 4 units with breakfast, 4 units with lunch, 6 units dinner. PLUS SS#1 (1 units for every 50 over 150 PRE MEAL blood sugar) TDD 30 units daily insulin glargine (LANTUS SOLOSTAR U-100 INSULIN) 100 unit/mL (3 mL) Inject 27 units once daily SYMBICORT 160-4.5 mcg/actuation inhaler Inhale 2 Puffs as instructed two times a day. zolpidem (AMBIEN) 5 mg tablet Take 0.5-1 tablets by mouth at bedtime as needed for up to 90 days. Needs larger pill dispensed to cut in half. cholecalciferol, Vitamin D3, (VITAMIN D3) 1,250 mcg (50,000 unit) cap capsule Take 1 capsule by mouth one time a week. blood sugar diagnostic (BLOOD GLUCOSE TEST) test strip Test blood sugar(s) 8 times daily--MedicallyNecessary for labile blood sugars (highs and lows). Dx: Other DM Code E10.8, E11.610 Insulin: Yes aspirin, enteric coated (ASPIRIN, ENTERIC COATED) 81 mg EC tablet Take 1 tablet by mouth two times a day. (Patient taking differently: Take 81 mg by mouth once daily.) ramipril (ALTACE) 10 mg capsule Take 1 capsule by mouth two times a day. metoprolol tartrate, short acting, (LOPRESSOR) 50 mg tablet Take 1/2 tablet by mouth twice a day furosemide (LASIX) 20 mg tablet Take 1 tablet by mouth once daily as needed. (Patient taking differently: Take 20 mg by mouth once daily as needed (edema).) amLODIPine (NORVASC) 10 mg tablet Take 0.5 tablets by mouth once daily. mometasone (ELOCON) 0.1 % cream Apply to affected area once daily as needed (for scalp psoriasis). For 14 days. Treat for recurrences. Apply at bedtime then wash off in the morning flash glucose sensor (FREESTYLE RAISSA 2 SENSOR) kit Apply new sensor every fourteen (14) days to upper arm. (Patient not taking: Reported on 01/02/2024) L. acidophilus/Bifid. animalis (DAILY PROBIOTIC ORAL) Take 1 capsule by mouth once daily. (Patient not taking: Reported on 01/12/2024) Insulin [place], Disposable, (BD ULTRA-FINE FADY PEN NEEDLE) 32 [...] pill twice daily to help with cough (Patient taking differently: Take 200-400 mg by mouth four times a day as needed (Take with food.).) No current facility-administered medications for this visit. Labs: Lab Results Component Value Date HBA1C 7.7 12/07/2023 HBA1C 7.7 09/01/2023 HBA1C 7.4 05/16/2023 HBA1C 7.8 09/02/2021 HBA1C 7.4 05/04/2021 HBA1C 8.4 01/06/2021 Cholesterol, Total Date Value Ref Range Status 01/27/2024 175 <200 mg/dL Final Comment: <200 mg/dL, Desirable 200-239 mg/dL, Borderline high >239 mg/dL, High HDL Cholesterol Date Value Ref Range Status 01/27/2024 62 >39 mg/dL Final Comment: 40-59 mg/dL, Acceptable >59 mg/dL, High: Negative risk factor for coronary heart disease <40 mg/dL, Low: Positive risk factor for coronary heart disease LDL Cholesterol Date Value Ref Range Status 01/27/2024 98 <100 mg/dL Final Comment: <100 mg/dL, Optimal 100-129 mg/dL, Near optimal/above optimal 130-159 mg/dL, Borderline high 160-189 mg/dL, High >189 mg/dL, Very high Secondary prevention optimal LDL Cholesterol levels are recommended to be < 70 mg/dL Triglyceride Date Value Ref Range Status 01/27/2024 77 <150 mg/dL Final Comment: <150 mg/dL, Normal 150-199 mg/dL, Borderline high 200-499 mg/dL, High >499 mg/dL, Very high Glucose (mg/dL) Date Value 01/27/2024 114 09/11/2021 88 Potassium (mmol/L) Date Value 01/27/2024 4.1 09/11/2021 4.3 Sodium (mmol/L) Date Value 01/27/2024 139 09/11/2021 140 Chloride (mmol/L) Date Value 01/27/2024 102 09/11/2021 102 CO2 (mmol/L) Date Value 01/27/2024 28 09/11/2021 25 Creatinine (mg/dL) Date Value 01/27/2024 0.77 09/11/2021 0.79 BUN (mg/dL) Date Value 01/27/2024 18 09/11/2021 19 Anion Gap (mmol/L) Date Value 01/27/2024 9 09/11/2021 13 Calcium (mg/dL) Date Value 09/11/2021 10.3 Calcium, Total (mg/dL) Date Value 01/27/2024 9.4 Protein, Total (g/dL) Date Value 01/27/2024 6.7 05/04/2021 7.0 Albumin (g/dL) Date Value 01/27/2024 3.9 05/04/2021 3.9 Bilirubin, Total (mg/dL) Date Value 01/27/2024 0.8 05/04/2021 1.0 Alkaline Phosphatase (U/L) Date Value 01/27/2024 101 05/04/2021 122 AST (U/L) Date Value 01/27/2024 14 05/04/2021 15 ALT (U/L) Date Value 01/27/2024 12 05/04/2021 11 ANTHROPOMETRICS Height: Last 1 Encounter Ht Readings: Date: Ht: 02/15/2024 176.5 cm (5' 9.5) Current weight: Last 3 Encounter Wt Readings: Date: Wt: 02/15/2024 142.9 kg (315 lb) 02/13/2024 143 kg (315 lb 3.2 oz) 01/02/2024 145.4 kg (320 lb 8.8 oz) BMI: 45.85 kg/m2 5% -10% Weight loss: 15.5-31 lbs Last Wt 02/15/24 : (!) 142.9 kg (315 lb) 5% weight loss = 0 lbs, 10% weight loss = 0 lbs [place] body weight: 67.4 kg (148 lb 7.7 oz) Adjusted ideal body weight: 97.6 kg (215 lb 1.4 oz) READINESS TO LEARN Cognitive ability: Alert and oriented Motivation to learn: Interested Family support: High - Very involved in pt care Instruction provided to: Patient and Spouse Patient learns best by: Multiple Methods Factors affecting learning: None Physical limitations affecting learning: None Stage of Change: Action Nutrition Diagnosis: Food and nutrition related knowledge deficit, related to; lack of prior exposure to information , as evidenced by client has no prior knowledge of need for food and nutrition - related information Calories Needed for Current Weight: Resting Metabolic Rate: 1985 Nutrition Intervention: -Diabetes Basics: role of insulin in the body and role of glucose in the body -Monitoring: BG targets -Healthy Eating: -- Encouraged establishing meals consistency; regularly consume 3 meals per day and snacks as needed. -- Space meals and/or snacks a part by 3-5 hours. -- Plate Method:1/2 plate non-starchy vegetables, 1/4 plate protein, 1/4 plate starch/grain/fruit -- carbohydrate and protein sources and effect on blood sugar regulation and metabolism -- Encouraged to always pair protein and/or healthy fat with CHO sources. Do not consume naked CHO. -- concepts of the Mediterranean diet for healthy carb choices -- CHO counting and foods with carbs, portion sizes, choosing high fiber CHO sources, -- Recommendation for 30-45 carb per meal and 20-30 g protein per meal. -- Recommendation for 7 g protein or 5-10 g healthy fat per snack- evening snack include 15g of CHOas needed. -- Portion sizes for commonly eaten carbohydrate foods -- Food label reading for serving size, total carbohydrate, fiber, and protein. -- Benefits of fiber in foods and effect on satiety and blood glucose regulation- discussed sourcesof high fiber foods. -- Importance of including lean protein sources at each meal and snack. -- Importance of including healthy fats such as olive oil, avocado, nuts and fish -- Reviewed sample carb controlled Mediterranean style menus. -Medications: basal insulin, prandial insulin, and injectable insulin discussed: aspart (Novolog) and glargine (Lantus) -Physical Activity: benefits of exercise, impact of exercise on BG, and types of exercise -Problem Solving: hypoglycemia s/sx/tx, hyperglycemia s/sx/tx, and sick day rules -Discussed use of CGM Freestyle Raissa to monitor blood glucose. -Discussed glucagon emergency medicine to treat low BG event and when to use- will reach out to Marcela Mcgee to order. Education Materials: Healthy You: Survival Skills Healthy You: Planning Healthy Meals Thriving with the Mediterranean Lifestyle Nutrition Monitoring & Evaluation: Dietitian Goals: Maintained OR Improved Blood Glucose Control by next A1C test Weight Reduction of 5-10% within 6 months Criteria: Blood Glucose Values, A1C, and Weight Patient Stated Goals at today's visit: Consume 30-45 g CHO at meals paired with protein source. Adherence Potential to Goals: Good Need for Follow up: TBD Referred by: Renetta Mcgee APRN.C* Sergo Perez RD Consult Billing Type/Increments: Initial Assessment/15 minutes, 4 increment(s), 60 minutes Start time: 9:35 End time: 10:35 My final report will be communicated back to the requesting physician by way of shared medical record. Signed by: Sergo Perez RD documented in this encounterWadsworth-[facility]09-23-2024 Note[facility]-2024 NoteW[facility]09-18-2024 History of Present illness Narrative* Federica Alonzo RN - 04/04/2024 10:58 AM EDT CDM ENROLLMENT Provider Action / FYI: Pt given the [facility] phone number. Educated on the purpose of program, resources available,and hours of operation. Patient identified by name and date of . Discussed care with patient. Program Details Chronic Disease Management Status: Enrolled Effective Dates: 04/04/2024 - present Responsible Staff: Federica Alonzo RN Support and Services: Diabetes Assessments CDM Assessment Medications: Do you have any questions about taking your medications or which medications you should be taking?:No Do you need any medication refills at this time, including any of the medication you might take only when needed?: No Social: It can be normal to feel anxious or down during a time like this. Would you like to talk to a mental health professional about how you have been feeling?: No Symptoms: Are you experiencing any new or worsening symptoms that you need to talk about today?: No ADLs Patients can perform the following activities without help: Dressing: Yes Bathing: Yes Doing laundry: Yes Climbing a flight of stairs: No Walking briskly: No Instrumental activities of daily living Do you drive a car?: No Do you need help from others to take care of things inside the house, for example: laundry, house cleaning, preparing meals?: No Do you need help from others with errands outside the house, for example: shopping for groceries orclothes, going medical appointments?: Yes Did you have the help you needed?: No Fall Risk One or more falls in the last year:: No Any near falls in the last year?: No Advised to use a cane or walker to get around safely:: Yes (Cane, walker and wheelchair) Feels unsteady when walking:: Yes Steadies self on furniture while walking at home:: Yes Worried about falling:: Yes Needs to push with hands when rising from a chair:: Yes Has trouble stepping up onto a curb:: Yes Often has to magana to the toilet:: No Has lost some feeling in feet:: Yes Takes medicine that makes him/her feel lightheaded or more tired than usual:: No Takes medicine to sleep or improve mood:: No Fall risk factors:: Foot problems SDOH Financial Resource Strain How hard is it for you to pay for the very basics like food, housing, medical care, and heating?: Not hard at all Housing Stability In the last 12 months, was there a time when you were not able to pay the mortgage or rent on time?: No At any time in the past 12 months, were you homeless or living in a snf (including now)?: No Transportation Needs In the past 12 months, has lack of transportation kept you from medical appointments or from getting medications?: No In the past 12 months, has lack of transportation kept you from meetings, work, or from getting things needed for daily living?: No Food Insecurity Within the past 12 months, you worried that your food would run out before you got the money to buymore.: Never true Within the past 12 months, the food you bought just didn't last and you didn't have money to get more.: Never true Utilities In the past 12 months has the [employer], gas, oil, or water ybuy threatened to shut off services in your home?: No Tobacco Use Patient reports that she quit smoking about 25 years ago. Her smoking use included cigarettes. She started smoking about 45 years ago. She has a 10 pack- year smoking history. She has never used smokeless tobacco. Interventions The following were addressed during this visit: - Initial enrollment outreach - Intake assessments completed: ADLs, Fall Risk, SDOH Disposition Based on mason apprentice, the following disposition is advised: No action needed Federica Alonzo RN April 04, 2024 11:15 AM documented in this encounterWadsworth-Rittman [facility]09-13-2024 Instructions* Patient Instructions* Jeannine Perkins MD - 03/30/2024 2:37 PM EDT SERVICE DATE: 03/30/2024 SERVICE TIME: 1:40 PM Oral Exhaled Nitric Oxide measurement: 25.0 (ppb) Oral Exhaled Nitric Oxide measurement (Previous Encounters) Test Date Oral Exhaled Nitric Oxide (ppb) 06/23/2023 16.0 04/30/2021 45.0 (A) 02/23/2019 24.0 04/18/2017 56.0 (A) documented in this encounterWadsworth-Rittman [facility]09-13-2024 History of Present illness Narrative* Jeannine Perkins MD - 03/30/2024 2:15 PM EDT Images from the original note were not included. . Respiratory Liscomb Note Patient name: Attila Kidd PCP: Octavio Reza MD CC: Follow-up asthma HPI: Attila Kidd 78 year old female former [id number] smoker with PMH significant for morbid obesity, HTN, HLD, GERD, DM2, THAIS noncompliant with BiPAP usage, nocturnal oxygen need, asthma, SVT/palpitations. Recently seen by [facility] for an acute visit for worsening asthma symptoms. Baseline inhaledtherapy with generic Symbicort and as needed albuterol. She had previously been on Advair but complained of significant palpitations. At [facility], she continued to have issues with palpitations on her inhaled ICS/LABA. She will not use her rescue inhaler due to concerns of cardiac symptoms. She was changed to brand-name Symbicort and encouraged to use her albuterol. Since the change to brand name Symbicort, she has not had any issues with palpitations. She has persistent dyspnea on exertion in part related to her morbid obesity. No wheezing, chronic cough or sputum production. She has not been illwith any upper respiratory infection nor specialization. She has several other complaints today which are unrelated to her pulmonary disease. DME: [employer] Nocturnal oxygen DATA: SERVICE DATE: 03/30/2024 SERVICE TIME: 1:40 PM Oral Exhaled Nitric Oxide measurement: 25.0 (ppb) Oral Exhaled Nitric Oxide measurement (Previous Encounters) Test Date Oral Exhaled Nitric Oxide (ppb) 06/23/2023 16.0 04/30/2021 45.0 (A) 02/23/2019 24.0 04/18/2017 56.0 (A) Imaging / Diagnostic Studies: PAST MEDICAL HISTORY Diagnosis Date Adverse reaction [...] Vitamin D deficiency 08/21/2010 ALLERGIES Allergen Reactions Hctz [Amiloride-Hyd* Other: See Comments Rapid heart beat, nausea, light eaded. (lasted about 12 hours after first dose) Oseltamivir Mental Status Change hallucinations Doxycycline GI Upset Escitalopram Intolerance Fatigued after just a half pill dose. Did not want to take anymore. Lysine Itching Naprosyn [Naproxen] GI Upset Nausea Uqldkin-Kan-Rki Red* Myalgia Tylenol-Codeine #3 * Vomiting Ventolin [Albuterol* GI Upset, Vomiting insulin aspart U-100 (NOVOLOG U-100 INSULIN ASPART) 100 unit/mL Inject 4 units with breakfast, 4 units with lunch, 6 units dinner. PLUS SS#1 (1 units for every 50 over 150 PRE MEAL blood sugar) TDD 30 units daily insulin glargine (LANTUS SOLOSTAR U-100 INSULIN) 100 unit/mL (3 mL) Inject 27 units once daily SYMBICORT 160-4.5 mcg/actuation inhaler Inhale 2 Puffs as instructed two times a day. zolpidem (AMBIEN) 5 mg tablet Take 0.5-1 tablets by mouth at bedtime as needed for up to 90 days. Needs larger pill dispensed to cut in half. cholecalciferol, Vitamin D3, (VITAMIN D3) 1,250 mcg (50,000 unit) cap capsule Take 1 capsule by mouth one time a week. blood sugar diagnostic (BLOOD GLUCOSE TEST) test strip Test blood sugar(s) 8 times daily--MedicallyNecessary for labile blood sugars (highs and lows). Dx: Other DM Code E10.8, E11.610 Insulin: Yes aspirin, enteric coated (ASPIRIN, ENTERIC COATED) 81 mg EC tablet Take 1 tablet by mouth two times a day. (Patient taking differently: Take 81 mg by mouth once daily.) ramipril (ALTACE) 10 mg capsule Take 1 capsule by mouth two times a day. metoprolol tartrate, short acting, (LOPRESSOR) 50 mg tablet Take 1/2 tablet by mouth twice a day furosemide (LASIX) 20 mg tablet Take 1 tablet by mouth once daily as needed. (Patient taking differently: Take 20 mg by mouth once daily as needed (edema).) amLODIPine (NORVASC) 10 mg tablet Take 0.5 tablets by mouth once daily. mometasone (ELOCON) 0.1 % cream Apply to affected area once daily as needed (for scalp psoriasis). For 14 days. Treat for recurrences. Apply at bedtime then wash off in the morning flash glucose sensor (FREESTYLE RAISSA 2 SENSOR) kit Apply new sensor every fourteen (14) days to upper arm. (Patient not taking: Reported on 01/02/2024) L. acidophilus/Bifid. animalis (DAILY PROBIOTIC ORAL) Take 1 capsule by mouth once daily. (Patient not taking: Reported on 01/12/2024) Insulin [place], Disposable, (BD ULTRA-FINE FADY PEN NEEDLE) 32 [...] pill twice daily to help with cough (Patient taking differently: Take 200-400 mg by mouth four times a day as needed (Take with food.).) Social History Tobacco Use Smoking status: Former Current packs/day: 0.00 Average packs/day: 0.5 packs/day for 20.0 years (10.0 ttl pk-yrs) Types: Cigarettes Start date: 10/21/1978 Quit date: 10/21/1998 Years since quittin.4 Smokeless tobacco: Never Vaping Use Vaping status: Never Used Substance Use Topics Alcohol use: Yes Comment: Rarely Drug use: No PMH, Social history, family history and surgical history reviewed and updated in EMR REVIEW OF SYSTEMS: CONSTITUTIONAL: No fevers, chills, nightsweats, unintended weight loss HEENT: Denies nasal congestion/sinus symptoms, allergy problems. Intermittent parotid enlargement CARDIOVASCULAR: No chest pain, palpitations. Dyspnea, edema. PULM: See HPI NEURO: No new balance problems, peripheral weakness/paresthesias or numbness of concern. MUSC-SKEL: Neck muscle pain and spasms INTEGUMENTARY: No new skin changes PHYSICAL EXAMINATION: BP 138/82, P 97, RR 14, SpO2 95%, wt 317 lbs General Appearance: Obese, in wheelchair. Skin: Skin color, texture, turgor normal, no suspicious rashes or lesions. Dry skin Head: Normocephalic, no masses, lesions, tenderness or abnormalities. Eyes: Sclera, conjunctiva normal. Oropharynx: No thrush. Lungs: Not labored, no wheezes or crackles. Heart: RRR, no murmur. Extremities: Edema, no clubbing. Assessment/Plan: Moderate persistent asthma, uncomplicated -She will continue on Symbicort. Brand-name necessary -Albuterol as needed -Exhaled nitric oxide level is normal today. Will continue to follow her exhaled nitric oxide levelfor her asthma Morbid obesity -BMI 45 -Weight loss advised as obesity portends poor control of asthma THAIS -Patient intolerant of BiPAP -Uses wedge and supplemental oxygen Jeannine Perkins MD Respiratory Liscomb documented in this encounterWadsworth-Rittman [facility]09-13-2024 NoteW[facility]09-13-2024 NoteWex[facility]09-13-2024 Procedure note* Zora Cortes RPFT - 03/30/2024 1:40 PM EDTAssociated Order(s): NITRIC OXIDE, EXHALED RESPIRATORY THERAPY ORAL EXHALED NITRIC OXIDE SERVICE DATE: 03/30/2024 SERVICE TIME: 1:40 PM Oral Exhaled Nitric Oxide measurement: 25.0 (ppb) Normal: Adult <25 ppb, pediatric (<12 years) <20 ppb High Normal / Increased: Adult 25-50 ppb, pediatric (<12 years) 20-35 ppb Moderately raised exhaled Nitric Oxide may indicate underlying inflammation, but note that: Cold and influenza can raise exhaled Nitric Oxide and some patients have higher baseline exhaled Nitric Oxide levels than others. High: Adult >50 ppb, pediatric (<12 years) >35 ppb Indicative of ongoing eosinophilic inflammation. Symptomatic patient likely to respond to steroids. Possible causes (if already on steroids): Poor compliance, recent allergen exposure, steroid dose inadequate, and steroid resistance. Note that not all patients with high exhaled nitric oxide levels display symptoms. Oral Exhaled Nitric Oxide measurement (Previous Encounters) Test Date Oral Exhaled Nitric Oxide (ppb) 03/30/2024 25.0 06/23/2023 16.0 04/30/2021 45.0 (A) 02/23/2019 24.0 04/18/2017 56.0 (A) NAME: JAI Matthew PATIENT NAME: Attila Kidd DATE: March 30, 2024 TIME: 1:40 PM [facility]09-13-2024 Procedure note* Zora Cortes RPFT - 03/30/2024 1:40 PM EDTAssociated Order(s): NITRIC OXIDE, EXHALED RESPIRATORY THERAPY ORAL EXHALED NITRIC OXIDE SERVICE DATE: 03/30/2024 SERVICE TIME: 1:40 PM Oral Exhaled Nitric Oxide measurement: 25.0 (ppb) Normal: Adult <25 ppb, pediatric (<12 years) <20 ppb High Normal / Increased: Adult 25-50 ppb, pediatric (<12 years) 20-35 ppb Moderately raised exhaled Nitric Oxide may indicate underlying inflammation, but note that: Cold and influenza can raise exhaled Nitric Oxide and some patients have higher baseline exhaled Nitric Oxide levels than others. High: Adult >50 ppb, pediatric (<12 years) >35 ppb Indicative of ongoing eosinophilic inflammation. Symptomatic patient likely to respond to steroids. Possible causes (if already on steroids): Poor compliance, recent allergen exposure, steroid dose inadequate, and steroid resistance. Note that not all patients with high exhaled nitric oxide levels display symptoms. Oral Exhaled Nitric Oxide measurement (Previous Encounters) Test Date Oral Exhaled Nitric Oxide (ppb) 03/30/2024 25.0 06/23/2023 16.0 04/30/2021 45.0 (A) 02/23/2019 24.0 04/18/2017 56.0 (A) NAME: JAI Matthew PATIENT NAME: Attila Kidd DATE: March 30, 2024 TIME: 1:40 PM documented in this encounterWadsworth-Rittman [facility]09-13-2024 Nurse Note* Elina Sarkar LPN - 03/30/2024 1:39 PM EDT Intake information documented in the prior visit with JAI Matthew today. [facility]09-13-2024 NoteW[facility] Center09-13-2024 History of Present illness Narrative* Zora Cortes RPFT - 03/30/2024 1:39 PM EDT PULM FUNCTION: Provider: Jeannine Perkins MD Assisting Tech: Zora Cortes RPFT Exhaled Nitric Oxide: 1 documented in this encounterWadsworth-Rittman Hospital09-13-2024 Nurse Note* Elina Sarkar LPN - 03/30/2024 1:39 PM EDT Intake information documented in the prior visit with JAI Matthew today. documented in this encounterWadsworth-Rittman [facility]09-06-2024 Telephone encounter Note * Telephone Encounter - Darlene Mena RN - 03/23/2024 3:07 PM EDT The patient has been identified by name and date of : Yes Caregiver verified no other encounters exist for this prescription request: Yes Caregiver confirmed with patient/requestor that no other refills are due, in the near future, with this provider at this time: Yes The last office visit in the department: 02/13/2024 Does the patient have a future office visit with this provider/department: Yes 06/11/2024 Requested Prescriptions Pending Prescriptions Disp Refills insulin aspart U-100 (NOVOLOG U-100 INSULIN ASPART) 100 unit/mL Sig: Inject 4 units with breakfast, 4 units with lunch, 6 units dinner. PLUS SS#1 (1 units for every 50 over 150 PRE MEAL blood sugar) TDD 30 units daily Darlene Mena RN March 23, 2024 3:08 PM [facility]09-06-2024 Miscellaneous Notes* Telephone Encounter - Darlene Mena RN - 03/23/2024 3:07 PM EDT The patient has been identified by name and date of : Yes Caregiver verified no other encounters exist for this prescription request: Yes Caregiver confirmed with patient/requestor that no other refills are due, in the near future, with this provider at this time: Yes The last office visit in the department: 02/13/2024 Does the patient have a future office visit with this provider/department: Yes 06/11/2024 Requested Prescriptions Pending Prescriptions Disp Refills insulin aspart U-100 (NOVOLOG U-100 INSULIN ASPART) 100 unit/mL Sig: Inject 4 units with breakfast, 4 units with lunch, 6 units dinner. PLUS SS#1 (1 units for every 50 over 150 PRE MEAL blood sugar) TDD 30 units daily Darlene Mena RN March 23, 2024 3:08 PM documented in this encounterWadsworth-[facility]09-[facility]24 Telephone encounter Note * Telephone Encounter - Sergo Perez RD - 03/22/2024 8:48 AM EDT Pt [facility] has not set up MyChart to be able to conduct virtual video visit today. [facility] is not interested in getting set up as notes difficulty navigating computer. Pt interested rescheduling appointment for in-person. Appointment to be rescheduled for April 09 at 10 am. [facility] Work Phone: [phone]) 434-183909-05-2024 Miscellaneous Notes* Telephone Encounter - Sergo Perez RD - 03/22/2024 8:48 AM EDT Pt [facility] has not set up MyChart to be able to conduct virtual video visit today. [facility] is not interested in getting set up as notes difficulty navigating computer. Pt interested rescheduling appointment for in-person. Appointment to be rescheduled for April 09 at 10 am. documented in this encounterWadsworth-Rittman [facility]08-29-2024 Telephone encounter Note * Telephone Encounter - Elina Sarkar LPN - 03/15/2024 9:50 AM EDT Called [facility]. Flavio HAIDER authorized per Quang Morin. Approval code [id number]. Approval through 07/17/24. Attempted to contact Elijah but call was disconnected. Detailed message left on patient's phone re: same. Elina Sarkar LPN [facility]08-29-2024 Miscellaneous Notes* Telephone Encounter - Elina Sarkar LPN - 03/15/2024 9:50 AM EDT Called [employer]. Symbicort VITALY authorized per Quang Morin. Approval code [id number]. Approval through 07/17/24. Attempted to contact Elijah but call was disconnected. Detailed message left on patient's phone re: same. Elina Sarkar LPN * Telephone Encounter - Kenisha Maldonado MA - 03/15/2024 8:30 AM EDT , Elijah calling and states his was given 2 generic inhalers and did not work. Symbicortis the only inhaler that works for her. asking if her Symbicort has been authorized? She was seen last week on 03/07. documented in this encounterWadsworth-[facility]08-29-2024 Telephone encounter Note * Telephone Encounter - Kenisha Maldonado MA - 03/15/2024 8:30 AM EDT , Elijah calling and states his was given 2 generic inhalers and did not work. Symbicortis the only inhaler that works for her. asking if her Symbicort has been authorized? She was seen last week on 03/07. [facility]08[facility]28[facility] History of Present illness Narrative* Lydia Manuel RN - 03/14/2024 8:28 AM EDT CC [facility] NURSE - CHART REVIEW Provider FYI PCC Action 02/13/2023 presented to non [facility] ED with complaint of chest pain and shortness of breath with exertion. Pt identified by name and . Reason for Review: Payor request Patient Attributed To: HOWIE Payer: [employer] Chart Review For: Utilization: ED Total Patient High CostTotal Patient High Cost {HIGH COST:[id number]) Quality measure review Payor request for assistance Action Taken: Data submitted to payor Lydia Manuel RN March 14, 2024 8:28 AM documented in this encounterWadsworth-Rittman [facility]08-26-2024 Note* Addendum Note - Renetta Mcgee APRN.CNP - 03/12/2024 10:13 AM EDTAddended by: RENETTA MCGEE on: 03/12/2024 10:13 AM Modules accepted: Orders [facility]08-26-2024 Telephone encounter Note* Telephone Encounter - Renetta Mcgee APRN.CNP - 03/12/2024 10:13 AM EDT Patient's request for medication is as follows Requested Prescriptions Signed Prescriptions Disp Refills insulin glargine (LANTUS SOLOSTAR U-100 INSULIN) 100 unit/mL (3 mL) 27 mL 3 Sig: Inject 27 units once daily Authorizing Provider: RENETTA MCGEE Order entered - please phone pharmacy and notify patient. Renetta Mcgee APRN.CNP [facility]08-26-2024 Miscellaneous Notes* Addendum Note - Renetta Mcgee APRN.CNP - 03/12/2024 10:13 AM EDTAddended by: RENETTA MCGEE on: 03/12/2024 10:13 AM Modules accepted: Orders * Telephone Encounter - Renetta Mcgee APRN.CNP - 03/12/2024 10:13 AM EDT Patient's request for medication is as follows Requested Prescriptions Signed Prescriptions Disp Refills insulin glargine (LANTUS SOLOSTAR U-100 INSULIN) 100 unit/mL (3 mL) 27 mL 3 Sig: Inject 27 units once daily Authorizing Provider: RENETTA MCGEE Order entered - please phone pharmacy and notify patient. Renetta Mcgee APRN.CNP * Telephone Encounter - Parris Eckert RN - 03/12/2024 8:51 AM EDT Pt called in about her insulin glargine, she states [facility] said it wasn't sent in correctly. I lether know it was sent by her endocrinologists office and she would need to call them if they were handling the medication. Pt is going to called Trevin Mcgee [employer] STEMMER documented in this encounterWadsworth-Rittman Hospital08-26-2024 Telephone encounter Note * Telephone Encounter - Radha Lacy RN - 03/12/2024 8:59 AM EDT Patient called, verified name and date of . She advised that she is on her last bottle of insulin glargine. She called [facility] for a refill and they stated she does not have any refills left, but when she saw Marcela in November, she was given 11 refills. Could someone please assist her? Please call patient on her 's cell phone, , she is having problems with hers. Radha Lacy RN March 12, 2024 9:02 AM [facility]08-26-2024 Miscellaneous Notes* Telephone Encounter - Radha Lacy RN - 03/12/2024 8:59 AM EDT Patient called, verified name and date of . She advised that she is on her last bottle of insulin glargine. She called [facility] for a refill and they stated she does not have any refills left, but when she saw Marcela in November, she was given 11 refills. Could someone please assist her? Please call patient on her 's cell phone, , she is having problems with hers. Radha Lacy RN March 12, 2024 9:02 AM documented in this encounterWadsworth-[facility]itt[facility]08-26-2024 Telephone encounter Note * Telephone Encounter - Parris Eckert RN - 03/12/2024 8:51 AM EDT Pt called in about her insulin glargine, she states [facility] said it wasn't sent in correctly. I lether know it was sent by her endocrinologists office and she would need to call them if they were handling the medication. Pt is going to called Trevin Mcgee [employer] [facility]08-21-2024 History of Present illness Narrative* Ariane Tesfaye APRN.FABIO - 03/07/2024 11:00 AM EDT Images from the original note were not included. Pulmonary Medicine Patients name: Attila Kidd PCP: Octavio Reza MD CC: wheezing/SOB HPI: Attila Kidd is a 78 year old female former 10 pack year smoker with PMH significant for HTN, HLD, GERD, DM2, SVT/palpitations, THAIS non-compliant with BiPAP, nocturnal oxygen use, asthma, Flu A infection in 2021 resulting in hypoxemia. Previously on Symbicort with controlled symptoms at her [facility] in September 2023. She presents today with complaints of wheezing and SOB. On 02/19, she was told her insurance would not cover name brand Symbicort and she was prescribed Advair by her PCP. She experienced palpitations while on Advair and presented to [facility] ED on 03/02. Advair was stopped and Breyna was prescribed. On 03/06, she called her PCP office with a twingy pain in my heart and was not feeling well after using Breyna. Reports the palpitations on Advair and Breyna were unbearable. Today, she reports not using an inhaler in over 24 hours. She woke up this morning feeling like shecouldn't get enough air. Does note wheeze when exhaling. Symptoms make her feel SOB. Overall, has an occasional productive cough with phlegm in the morning. Denies sick symptoms, fevers, chils, or night sweats. Overall respiratory symptoms were well controlled until she had issues getting Symbicort. Does not use Albuterol d/t concerns for side effects. 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 Comment: Historical: see allergies No date: Anal or rectal pain Comment: proctalgia 03/06/2016: Ankle fracture, right No date: Anxiety state, unspecified No date: Asthma No date: Benign neoplasm of colon No date: Charcot foot due to diabetes mellitus (HCC) No date: Depressive disorder, not elsewhere classified 09/15/2005: DIABETES TYPE I W MANIF NOS No date: Disorder of bone and cartilage, unspecified No date: Esophageal reflux No date: Essential hypertension, benign 01/04/2013: Incisional hernia No date: Internal hemorrhoids without mention of complication No date: Mitral valve disorders(424.0) No date: Obesity, unspecified No date: THAIS (obstructive sleep apnea) No date: Osteoarthritis of multiple joints No date: Other and unspecified hyperlipidemia 10/12/2006: Other seborrheic keratosis 09/06/2007: Rosacea 08/21/2010: Vitamin D deficiency Allergies: Hctz [Amiloride-Hyd* Other: See Comments Comment:Rapid heart beat, nausea, light eaded. (lasted about 12 hours after first dose) Oseltamivir Mental Status Change Comment:hallucinations Doxycycline GI Upset Escitalopram Intolerance Comment:Fatigued after just a half pill dose. Did not want to take anymore. Lysine Itching Naprosyn [Naproxen] GI Upset Comment:Nausea Lyetsnz-Ptq-Pmk Red* Myalgia Tylenol-Codeine #3 * Vomiting Ventolin [Albuterol* GI Upset, Vomiting Medication List Accurate as of March 07, 2024 9:06 AM. If you have any questions, ask your nurse or doctor. CHANGE how you take these medications aspirin, enteric coated 81 mg EC tablet Commonly known as: ASPIRIN, ENTERIC COATED Take 1 tablet by mouth two times a day. What changed: when to take this furosemide 20 mg tablet Commonly known as: LASIX Take 1 tablet by mouth once daily as needed. What changed: reasons to take this ibuprofen 200 mg tablet Commonly known as: MOTRIN Take 1-2 tablets by mouth four times daily as needed (Take with food.). --currently only needing 1 pill twice daily to help with cough What changed: additional instructions CONTINUE taking these medications albuterol HFA 90 mcg/actuation inhaler Commonly known as: PROVENTIL HFA, VENTOLIN HFA Inhale 2 Puffs as instructed four times daily as needed. FOR WHEEZING AND SHORTNESS OF BREATH. amLODIPine 10 mg tablet Commonly known as: NORVASC Take 0.5 tablets by mouth once daily. blood sugar diagnostic test strip Commonly known as: BLOOD GLUCOSE TEST Test blood sugar(s) 8 times daily--Medically Necessary for labile blood sugars (highs and lows). Dx: Other DM Code E10.8, E11.610 Insulin: Yes cholecalciferol (Vitamin D3) 1,250 mcg (50,000 unit) Cap capsule Commonly known as: VITAMIN D3 Take 1 capsule by mouth one time a week. COMPOUNDED PRESCRIPTION Bi-PAP nose pads. (G47.33) THAIS treated with BiPAP DAILY PROBIOTIC ORAL FREESTYLE RAISSA 2 SENSOR Kit Generic drug: flash glucose sensor Apply new sensor every fourteen (14) days to upper arm. insulin aspart U-100 100 unit/mL Commonly known as: NovoLOG U-100 Insulin aspart Inject 4 units with breakfast, 4 units with lunch, 6 units dinner. PLUS SS#1 (1 units for every 50 over 150 PRE MEAL blood sugar) TDD 30 units daily insulin glargine 100 unit/mL (3 mL) Inject 30 Units subcutaneously daily at bedtime. Give Lantus, not Basaglar per patient preference Insulin [place] (Disposable) 32 gauge x 5/32 Commonly known as: BD ULTRA-FINE FADY PEN NEEDLE Use one needle for each dose. 1-2 /day. metoprolol tartrate (short acting) 50 mg tablet Commonly known as: LOPRESSOR Take 1/2 tablet by mouth twice a day mometasone 0.1 % cream Commonly known as: ELOCON Apply to affected area once daily as needed (for scalp psoriasis). For 14 days. Treat for recurrences. Apply at bedtime then wash off in the morning ramipril 10 mg capsule Commonly known as: ALTACE Take 1 capsule by mouth two times a day. zolpidem 5 mg tablet Commonly known as: AMBIEN Take 0.5-1 tablets by mouth at bedtime as needed for up to 90 days. Needs larger pill dispensed to cut in half. DATA: I personally reviewed and analyzed all labs, radiographs and available pulmonary function testing PFT: 06/23/2023 IMPRESSION: Spirometry shows no obstruction.The reduced FVC suggests restriction. CXR: OSH 03/02/2024 INDICATION: Palpitations EXAMINATION/TECHNIQUE: X-RAY - XR Chest 1 View COMPARISON: FINDINGS: LINES/DEVICES: None. LUNGS: No consolidation, edema or effusion. Left basilar atelectasis. No pneumothorax. MEDIASTINUM AND CARDIOVASCULAR STRUCTURES: Cardiac silhouette is borderline in size. Central airways and mediastinal contour are unremarkable. BONES AND SOFT TISSUES: Unremarkable. RAD/Chest 1 View (Portable) IMPRESSION: Left basilar atelectasis. Electronically Signed: Merrick Capone DO at 20:53 EDT , Review of Systems Constitutional: Negative for chills, fever and unexpected weight change. HENT: Negative for congestion, mouth sores, postnasal drip, sinus pressure and sinus pain. Respiratory: Positive for wheezing. Negative for cough and chest tightness. Cardiovascular: Positive for palpitations. Negative for leg swelling. Intermittent palpitations Allergic/Immunologic: Negative for environmental allergies. Neurological: Negative for dizziness and headaches. BP 132/82 Pulse 72 Resp 15 SpO2 97% Physical Exam Vitals reviewed. Constitutional: General: She is not in acute distress. Appearance: Normal appearance. She is obese. She is not ill-appearing. HENT: Head: Normocephalic. Nose: No congestion or rhinorrhea. Mouth/Throat: Mouth: Mucous membranes are moist. Pharynx: No oropharyngeal exudate. Cardiovascular: Rate and Rhythm: Normal rate. Heart sounds: Normal heart sounds. Pulmonary: Effort: Pulmonary effort is normal. No respiratory distress. Breath sounds: No wheezing. Musculoskeletal: Right lower leg: No edema. Left lower leg: No edema. Lymphadenopathy: Cervical: No cervical adenopathy. Skin: General: Skin is warm and dry. Capillary Refill: Capillary refill takes less than 2 seconds. Neurological: General: No focal deficit present. Mental Status: She is alert. ASSESSMENT/PLAN: 1. Mild persistent asthma without complication - ICD9: 493.90, ICD10: J45.30 (primary diagnosis) - Mild persistent asthma worse since not being on adequate inhaler therapy - Budesonide-formoterol (Symbicort) 160-4.5 MCG 2 puffs twice daily with spacer. Rinse mouth after every use. Patient does not tolerate generic. - Brand Symbicort sent to preferred pharmacy. Instructed to call office if not affordable. Can consider nebulized treatments if needed. - Not tolerant of Advair or Breyna. - prescribed Albuterol PRN if needed 2. Shortness of breath - ICD9: 786.05, ICD10: R06.02 - started since not being on adequate inhaler - VSS, euvolemic and no sign of acute asthma exacerbation on exam - review of CT report from [facility] ED 03/02 without sign of pulmonary edema/acute illness - resume Symbicort and monitor symptoms F/u scheduled with Dr. Perkins 03/30 Portions of this documentation were copied and pasted from previous office visit notes in order to provide a cohesive continuity of the history. The note has been reviewed and edited and updated as necessary. Ariane Tesfaye APRN.FABIO Momin spent a total of 39 minutes on the date of the service which included preparing to see the patient, [id number] patient care, completing clinical documentation, obtaining and/or reviewing separately obtained history, performing a medically appropriate examination, and counseling and educating the patient/family/caregiver. documented in this encounterWadsworth-Rittman [facility]08-21-2024 NoteW[facility]08-21-2024 Telephone encounter Note* Telephone Encounter - Elina Sarkar LPN - 03/07/2024 9:04 AM EDT Appt scheduled. Elina Sarkar LPN [facility]08-21-2024 Miscellaneous Notes* Telephone Encounter - Elina Sarkar LPN - 03/07/2024 9:04 AM EDT Appt scheduled. Elina Sarkar LPN * Telephone Encounter - Trudy Wang MA - 03/07/2024 8:40 AM EDT Patient called in stating she is not feeling well. She contacted this office with same message below that was sent to PCP. Patient states she has a follow up in the office with Dr. Perkins on 03/30/2024, but wondering if she should be seen sooner. She is asking for appointment for today. Patient can be contacted back at [phone]. * Telephone Encounter - Trudy Wang MA - 03/07/2024 8:39 AM EDT Images from the original note were not included. Parris Eckert RN AB 03/07/24 8:32 AM Note Pt called and is notified of providers message and instructions. Pt voices understanding. Pts phonewas breaking up and could not hear everything she was saying, but she said she is still coughing, wheezing, and SOB. She said she has never had a good time taking generic medications, and the insurance isn't wanting to give her the Symbicort. Pt sent to Pulmonology to f/u on symptoms. Parris Eckert RN AB 03/07/24 8:20 AM Parris Eckert RN contacted Attila Kidd March 06, 2024 03/06/24 8:29 PM Octavio Reza MD routed this conversation to [facility] Octavio Leiva MD 03/06/24 8:29 PM Note Stop the Breyna inhaler as well. Reviewed that had diagnosis of mild persistent asthma Since has had problems with several inhalers tried, can see how her breathing does without med to replace Symbicort. Follow up with rolling machine operator automatic if has recurrence of cough or wheezing. LP 03/06/24 5:04 PM Bettina Murray LPN routed this conversation to Octavio Reza MD Parsons, Lori, LPN LP 03/06/24 5:04 PM Note Pt reports she has been using generic advair, was sent to pharm 02/20/24. Pt states she started feeling she was having an erratic heart beat & she had felt ' a let down feeling' with her heart. Pt was seen at [facility] ED on 03/02/24 & states she was told it may have been a reaction to the inhaler. Pt was given a Breya inhaler in the ED & told to not take it along with any other inhalers. Pt states she used 1/2 puff today & she is feeling odd again. States she feels a 'twingy pain in my heart, then a sick feeling'. Pt denies chest pain. Pt states she doesn't want to go to ED again. Please advise. Bettina Murray LPN documented in this encounterWadsworth-Rittman Hospital08-21-2024 Telephone encounter Note * Telephone Encounter - Trudy Wang MA - 03/07/2024 8:40 AM EDT Patient called in stating she is not feeling well. She contacted this office with same message below that was sent to PCP. Patient states she has a follow up in the office with Dr. Perkins on 03/30/2024, but wondering if she should be seen sooner. She is asking for appointment for today. Patient can be contacted back at [phone]. [facility]08-21-2024 Telephone encounter Note* Telephone Encounter - Trudy Wang MA - 03/07/2024 8:39 AM EDT Images from the original note were not included. Parris Eckert RN AB 03/07/24 8:32 AM Note Pt called and is notified of providers message and instructions. Pt voices understanding. Pts phonewas breaking up and could not hear everything she was saying, but she said she is still coughing, wheezing, and SOB. She said she has never had a good time taking generic medications, and the insurance isn't wanting to give her the Symbicort. Pt sent to Pulmonology to f/u on symptoms. Parris Eckert RN AB 03/07/24 8:20 AM Parris Eckert RN contacted Attila Kidd March 06, 2024 03/06/24 8:29 PM Octavio Reza MD routed this conversation to [facility] Octavio Leiva MD 03/06/24 8:29 PM Note Stop the Breyna inhaler as well. Reviewed that had diagnosis of mild persistent asthma Since has had problems with several inhalers tried, can see how her breathing does without med to replace Symbicort. Follow up with rolling machine operator automatic if has recurrence of cough or wheezing. LP 03/06/24 5:04 PM Bettina Murray LPN routed this conversation to Octavio Reza MD Parsons, Lori, LPN LP 03/06/24 5:04 PM Note Pt reports she has been using generic advair, was sent to pharm 02/20/24. Pt states she started feeling she was having an erratic heart beat & she had felt ' a let down feeling' with her heart. Pt was seen at [facility] ED on 03/02/24 & states she was told it may have been a reaction to the inhaler. Pt was given a Breya inhaler in the ED & told to not take it along with any other inhalers. Pt states she used 1/2 puff today & she is feeling odd again. States she feels a 'twingy pain in my heart, then a sick feeling'. Pt denies chest pain. Pt states she doesn't want to go to ED again. Please advise. Bettina Murray LPN [facility]08-21-2024 Telephone encounter Note* Telephone Encounter - Parris Eckert RN - 03/07/2024 8:29 AM EDT Pt called and is notified of providers message and instructions. Pt voices understanding. Pts phonewas breaking up and could not hear everything she was saying, but she said she is still coughing, wheezing, and SOB. She said she has never had a good time taking generic medications, and the insurance isn't wanting to give her the Symbicort. Pt sent to Pulmonology to f/u on symptoms. Parris Eckert RN [facility]08-21-2024 Miscellaneous Notes* Telephone Encounter - Parris Eckert RN - 03/07/2024 8:29 AM EDT Pt called and is notified of providers message and instructions. Pt voices understanding. Pts phonewas breaking up and could not hear everything she was saying, but she said she is still coughing, wheezing, and SOB. She said she has never had a good time taking generic medications, and the insurance isn't wanting to give her the Symbicort. Pt sent to Pulmonology to f/u on symptoms. Parris Eckert RN * Telephone Encounter - Octavio Reza MD - 03/06/2024 8:23 PM EDT Stop the Breyna inhaler as well. Reviewed that had diagnosis of mild persistent asthma Since has had problems with several inhalers tried, can see how her breathing does without med to replace Symbicort. Follow up with rolling machine operator automatic if has recurrence of cough or wheezing. * Telephone Encounter - Bettina Murray LPN - 03/06/2024 4:52 PM EDT Pt reports she has been using generic advair, was sent to pharm 02/20/24. Pt states she started feeling she was having an erratic heart beat & she had felt ' a let down feeling' with her heart. Pt was seen at [facility] ED on 03/02/24 & states she was told it may have been a reaction to the inhaler. Pt was given a Breya inhaler in the ED & told to not take it along with any other inhalers. Pt states she used 1/2 puff today & she is feeling odd again. States she feels a 'twingy pain in my heart, then a sick feeling'. Pt denies chest pain. Pt states she doesn't want to go to ED again. Please advise. Bettina Murray LPN documented in this encounterWadsworth-Rittman Hospital08-20-2024 Telephone encounter Note * Telephone Encounter - Octavio Reza MD - 03/06/2024 8:23 PM EDT Stop the Breyna inhaler as well. Reviewed that had diagnosis of mild persistent asthma Since has had problems with several inhalers tried, can see how her breathing does without med to replace Symbicort. Follow up with rolling machine operator automatic if has recurrence of cough or wheezing. [facility]08-20-2024 Telephone encounter Note* Telephone Encounter - Bettina Murray LPN - 03/06/2024 4:52 PM EDT Pt reports she has been using generic advair, was sent to pharm 02/20/24. Pt states she started feeling she was having an erratic heart beat & she had felt ' a let down feeling' with her heart. Pt was seen at [facility] ED on 03/02/24 & states she was told it may have been a reaction to the inhaler. Pt was given a Breya inhaler in the ED & told to not take it along with any other inhalers. Pt states she used 1/2 puff today & she is feeling odd again. States she feels a 'twingy pain in my heart, then a sick feeling'. Pt denies chest pain. Pt states she doesn't want to go to ED again. Please advise. Bettina Murray LPN [facility]08-19-2024 Telephone encounter Note* Telephone Encounter - Destinee Sims LPN - 03/05/2024 7:33 PM EDT Patient notified, order faxed to [facility] Scheduling. Destinee Sims LPN [facility]08-19-2024 Miscellaneous Notes* Telephone Encounter - Destinee Sims LPN - 03/05/2024 7:33 PM EDT Patient notified, order faxed to [facility] Scheduling. Destinee Sims LPN * Telephone Encounter - Lydia Grande APRN.CNS - 03/05/2024 4:30 PM EDT OK * Telephone Encounter - Cesar Brush LPN - 03/05/2024 8:36 AM EDT Patient calling she has gotten her reminder letter form [facility] that it is time to get mamm order. Patient needs done after 03/22/2024. Pending order and fax to [facility] at [phone] when completed, notify patient. Please advise documented in this encounterWad[facility]08-[facility] Telephone encounter Note * Telephone Encounter - Lydia Grande APRN.CNS - 03/05/2024 4:30 PM EDT OK [facility]08-19-2024 Telephone encounter Note* Telephone Encounter - Cesar Brush LPN - 03/05/2024 8:36 AM EDT Patient calling she has gotten her reminder letter form [facility] that it is time to get mamm order. Patient needs done after 03/22/2024. Pending order and fax to [facility] at [phone] when completed, notify patient. 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 Patient consents to pharmacy collaborative practice agreement. Last Pharmacy Visit: 01/12/24 (initial visit) - Novolog increased to 4-6-8 + SS#1 Interim Events: - 01/18/24 DM education visit - 02/13/24 PCP visit HPI: Here on speaker phone with present States things are going very well recently Reports she initially increased insulin lispro following last visit; however, went back to 4-4-6 scale, had a couple mornings with readings in BGs 70s so was concerned with readings going too low States she thinks the peanut butter crackers she has before bed are raising the readings on some mornings Current DM Medications: Lantus 30 units once daily at bedtime Novolog 4 units with breakfast, 6 units with lunch and 8 units with dinner + SS#1 - insulin lispro 4-4-6 + sliding scale #1 with meals Diet Trying to eliminate some carbs within diet recently GLYCEMIC CONTROL: Glucometer present at visit: Yes Hypoglycemia: No SMBGS (Fingersticks) Date Fasting AM 2 hr PP Before Lunch 2 hr PP Before Dinner 2 hr PP Bedtime 02/27 163/5 130 02/26 161/5 156 145/4 162 168/7 178 02/25 114/4 150/4 187 197/7 198 02/24 138/4 139 220/6 198 235/8 140 8/9 171/5 223/6 167 147/4 91 124 8/6 90 AVG 140 141 184 178 186 160 Past medical history reviewed. ALLERGIES Allergen Reactions Hctz [Amiloride-Hyd* Other: See Comments Rapid heart beat, nausea, light eaded. (lasted about 12 hours after first dose) Oseltamivir Mental Status Change hallucinations Doxycycline GI Upset Escitalopram Intolerance Fatigued after just a half pill dose. Did not want to take anymore. Lysine Itching Naprosyn [Naproxen] GI Upset Nausea Vbwqwpo-Ebn-Sqr Red* Myalgia Tylenol-Codeine #3 * Vomiting Ventolin [Albuterol* GI Upset, Vomiting Current Outpatient Medications Medication Sig Dispense Refill fluticasone-salmeterol (ADVAIR DISKUS) 100-50 mcg/dose inhaler Inhale 1 Puff as instructed two times a day. Rinse mouth out after use with water. 1 Each 5 SYMBICORT 160-4.5 mcg/actuation inhaler Inhale 2 Puffs as instructed two times a day. 1 Each 11 zolpidem (AMBIEN) 5 mg tablet Take 0.5-1 tablets by mouth at bedtime as needed for up to 90 days. Needs larger pill dispensed to cut in half. 30 tablet 2 insulin aspart U-100 (NOVOLOG U-100 INSULIN ASPART) 100 unit/mL Inject 4 units with breakfast, 6 units with lunch, 8 units dinner. PLUS SS#1 (1 units for every 50 over 150 PRE MEAL blood sugar) TDD 30 units daily insulin glargine 100 unit/mL (3 mL) Inject 30 Units subcutaneously daily at bedtime. Give Lantus, not Basaglar per patient preference 5 Each 11 cholecalciferol, Vitamin D3, (VITAMIN D3) 1,250 mcg (50,000 unit) cap capsule Take 1 capsule by mouth one time a week. 12 capsule 4 blood sugar diagnostic (BLOOD GLUCOSE TEST) test strip Test blood sugar(s) 8 times daily--MedicallyNecessary for labile blood sugars (highs and lows). Dx: Other DM Code E10.8, E11.610 Insulin: Yes 200 Strip 11 aspirin, enteric coated (ASPIRIN, ENTERIC COATED) 81 mg EC tablet Take 1 tablet by mouth two times a day. (Patient taking differently: Take 81 mg by mouth once daily.) ramipril (ALTACE) 10 mg capsule Take 1 capsule by mouth two times a day. 180 capsule 3 metoprolol tartrate, short acting, (LOPRESSOR) 50 mg tablet Take 1/2 tablet by mouth twice a day 90tablet 3 furosemide (LASIX) 20 mg tablet Take 1 tablet by mouth once daily as needed. (Patient taking differently: Take 20 mg by mouth once daily as needed (edema).) 90 tablet 3 amLODIPine (NORVASC) 10 mg tablet Take 0.5 tablets by mouth once daily. 90 tablet 3 mometasone (ELOCON) 0.1 % cream Apply to affected area once daily as needed (for scalp psoriasis). For 14 days. Treat for recurrences. Apply at bedtime then wash off in the morning 45 g 1 flash glucose sensor (FREESTYLE RAISSA 2 SENSOR) kit Apply new sensor every fourteen (14) days to upper arm. (Patient not taking: Reported on 01/02/2024) 6 Each 4 L. acidophilus/Bifid. animalis (DAILY PROBIOTIC ORAL) Take 1 capsule by mouth once daily. (Patient not taking: Reported on 01/12/2024) Insulin [place], Disposable, (BD ULTRA-FINE FADY PEN NEEDLE) 32 gauge x 5/32 Use one needle for each dose. 1-2 /day. 100 Each 11 albuterol HFA (PROVENTIL HFA, VENTOLIN HFA) 90 mcg/actuation inhaler Inhale 2 Puffs as instructed four times daily as needed. FOR WHEEZING AND SHORTNESS OF BREATH. 6.7 g 11 COMPOUNDED PRESCRIPTION Bi-PAP nose pads. (G47.33) THAIS treated with BiPAP 2 Device 1 ibuprofen 200 mg tablet Take 1-2 tablets by mouth four times daily as needed (Take with food.). --currently only needing 1 pill twice daily to help with cough (Patient taking differently: Take 200-400 mg by mouth four times a day as needed (Take with food.).) No current facility-administered medications for this visit. Pill bottles are not present. Adherence: denies missed doses. Rx coverage: Payor: [employer] MEDICARE / Plan: [employer] MEDICARE PPO / Product Type: PPO / Medications affordable? Yes PHARMACOTHERAPY PREVENTATIVE MEDS: On JOEY/ARB: Yes On Statin: No On ASA: Yes EXAM: There were no vitals taken for this visit. Last 3 Encounter BP Readings: Date: BP: 02/13/2024 130/80 01/02/2024 152/82 12/07/2023 132/70 Wt: 142.9 kg (315 lb) BMI: 45.85 kg/(m^2) LABS: Lab Results Component Value Date HBA1C 7.7 12/07/2023 HBA1C 7.7 09/01/2023 HBA1C 7.4 05/16/2023 HBA1C 7.8 09/02/2021 HBA1C 7.4 05/04/2021 HBA1C 8.4 01/06/2021 Glucose 114 01/27/2024 BUN 18 01/27/2024 Creatinine, Whole Blood (iSTAT) 0.77 01/27/2024 Sodium 139 01/27/2024 Potassium 4.1 01/27/2024 Chloride 102 01/27/2024 CO2 28 01/27/2024 Protein, Total 6.7 01/27/2024 Albumin 3.9 01/27/2024 Calcium 9.4 01/27/2024 Alkaline Phosphatase 101 01/27/2024 Bilirubin, Total 0.8 01/27/2024 AST 14 01/27/2024 ALT 12 01/27/2024 Lab Results Component Value Date CHOL 175 01/27/2024 CHOL 180 05/04/2021 LDL 98 01/27/2024 LDL 105 05/04/2021 HDL 62 01/27/2024 HDL 58 05/04/2021 TG 77 01/27/2024 TG 84 05/04/2021 Albumin/Creat Ratio (mg/g) Date Value 09/02/2023 <15 eGFR-All Other Races (.) Date Value 09/11/2021 >60 Estimated Glomerular Filtration Rate (mL/min/1.73m ) Date Value 01/27/2024 79 ASSESSMENT/PLAN: 1. 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 - Discussed diabetic education issues of diabetes complications and monitoring required and hypoglycemic/hyperglycemic symptoms - Follow up in 1 month, sooner should any other issues arise. Follow Up: Next PCP visit: 06/11/24 Next endo visit: 05/23/24 Next PharmD visit: 04/10/24 Charis Lucas, ArmandoD, BCACP Primary Care Clinical Global Sales Manager documented in this encounterW[facility]08-13-[facility]24 NoteW[facility] Telephone encounter Note* Telephone Encounter - Pattie Giles RN - 02/21/2024 8:32 AM EDT Call placed to patient and notified of below. Patient verbalizes understanding. Pattie Giles RN [facility]08-06-2024 Miscellaneous Notes* Telephone Encounter - Pattie Giles RN - 02/21/2024 8:32 AM EDT Call placed to patient and notified of below. Patient verbalizes understanding. Pattie Giles RN * Telephone Encounter - Octavio Reza MD - 02/20/2024 7:06 PM EDT The following approved medication requests have been transmitted electronically. Requested Prescriptions Signed Prescriptions Disp Refills fluticasone-salmeterol (ADVAIR DISKUS) 100-50 mcg/dose inhaler 1 Each 5 Sig: Inhale 1 Puff as instructed two times a day. Rinse mouth out after use with water. Authorizing Provider: OCTAVIO REZA MD Try going back to Advair 100/50. If not as effective as Symbicort, can try higher 250/50 dose or switch to another inhaler, like Breo. * Telephone Encounter - Pattie Giles RN - 02/20/2024 8:11 AM EDT Patient calls to report that her insurance isn't going to cover the name brand Symbicort and she will need an alternative inhaler prescription sent in. Pattie Giles RN documented in this encounterWadsworth-[facility]08-05-2024 Telephone encounter Note * Telephone Encounter - Octavio Reza MD - 02/20/2024 7:06 PM EDT The following approved medication requests have been transmitted electronically. Requested Prescriptions Signed Prescriptions Disp Refills fluticasone-salmeterol (ADVAIR DISKUS) 100-50 mcg/dose inhaler 1 Each 5 Sig: Inhale 1 Puff as instructed two times a day. Rinse mouth out after use with water. Authorizing Provider: OCTAVIO REZA MD Try going back to Advair 100/50. If not as effective as Symbicort, can try higher 250/50 dose or switch to another inhaler, like Breo. [facility]08-05-2024 Telephone encounter Note* Telephone Encounter - Pattie Giles RN - 02/20/2024 8:11 AM EDT Patient calls to report that her insurance isn't going to cover the name brand Symbicort and she will need an alternative inhaler prescription sent in. Pattie Giles RN [facility]07-31-2024 History of Present illness Narrative* Renetta Mcgee, CLINICAL LAW PROFESSOR.PLATE SLITTER AND INSPECTOR - 02/15/2024 2:45 PM EDT OFFICE VISIT PROGRESS NOTE CC Attila Kidd is a 78 year old who presents today for blood sugar review, insulin dosing adjust. HPI Diagnosed with diabetes mellitus type 1, ~ 2005 Last endocrine OV 12/07/2023 Some elements copied from my note 12/07/2023 which have been updated where appropriate, and all reflect current medical decision making from date of this visit. HISTORY OF PRESENT ILLNESS; Attila Kidd is a very pleasant 78 year old FEMALE is presenting as a new patient to me regardingDM Type 1. Here with today Very frustrated, confused as to what to eat, what is ok, what is not ok Trying to follow keto plan ? Patient and both very confused and overwhelmed with insulin dosing, blood sugar control. She was initially diagnosed with diabetes in 2005. The patient reports the following microvascular complications: peripheral neuropathy and charcot joint. Attila has no know macrovascular complications of diabetes. DM Education No Knows how to carb count No Exercise: limited HPI 02/15/2024 Confirmed again with patient that her labs showed that she is a type I confirmed. She has been working with meal base insulin and SS in addt to sliding scale She is doing much better with her blood sugars and has ranged from 100-240 on average One low of 71 Admits has added 'a bit of insulin several times' when she thought her blood sugar was too high Sts I didn't feel well, so I learned not to do that' Saw PharmD in between ENDO visits and insulin dosing was slightly adjusted CURRENT DM MEDS NOVOLOG 3-10 units with meals (per sliding scale, obtained from home care nurse 'years ago' NAYEUS 27 units once daily SMBG Type of Monitor: Other Frequency of Monitorin times a day BG Values: RUNNING 71 low High 335 Ranging from 101-260 ll day, bring food log with blood sugars written out Hypoglycemia: no Diet: Low carbohydrate Exercise: limited DM REVIEW OF SYSTEMS Last Eye Exam : yearly Last Podiatry Exam: Cardiorespiratory: negative, denies chest pain, pressure Claudication: no Dyslipidemia: Yes, controlled on medication High Blood Pressure: Yes, controlled on medication CURRENT LABS Latest Ref Rng 12/07/2023 01/27/2024 Glucose 74 - 99 mg/dL 114 (H) BUN 7 - 21 mg/dL 18 Creatinine 0.58 - 0.96 mg/dL 0.77 Sodium 136 - 144 mmol/L 139 Potassium 3.7 - 5.1 mmol/L 4.1 Chloride 98 - 107 mmol/L 102 CO2 22 - 30 mmol/L 28 Anion Gap 8 - 15 mmol/L 9 eGFR >=60 mL/min/1.73m 79 Cholesterol, Total <200 mg/dL 175 Triglyceride <150 mg/dL 77 HDL Cholesterol >39 mg/dL 62 Non HDL Cholesterol <130 mg/dL 113 Fasting Time hrs 10 VLDL Cholesterol <30 mg/dL 15 TC:HDL Ratio <5.10 2.82 LDL Cholesterol <100 mg/dL 98 LDL:HDL Ratio <2.54 1.58 Glutamic Acid Decarboxylas Ab Qualitative Negative Positive ! Glutamic Acid Decarboxylase Ab <=5.0 IU/mL 6.7 (H) Hemoglobin A1C 4.3 - 5.6 % 7.7 (H) Estimated Average Glucose mg/dL 174 Islet Cell Ab <1:4 <1:4 Vitamin D 25 Hydroxy 31.0 - 80.0 ng/mL 71.5 Legend: ! Abnormal (H) High Recent Labs 05/15/14 1011 10/18/14 0732 05/25/21 0731 09/02/21 0700 12/24/21 0718 09/14/22 0724 05/16/23 0725 09/01/23 1247 09/02/23 0530 12/07/23 1133 ALT 14 < > -- < > 15 14 8 14 -- -- AST 15 < > -- < > 16 15 10* 16 -- -- UCRR -- < > 21.2 -- 212.6 -- -- -- 78.0 -- UALBR -- < > <12.0 -- 14.6 -- -- -- <12.0 -- UALBCR -- < > Not calculated -- 7 -- -- -- <15 -- TSH 1.120 -- -- -- -- -- -- -- -- -- TPROT 7.1 < > -- < > 7.0 6.6 6.5 7.1 -- -- ALB 4.0 < > -- < > 3.8* 3.8* 3.8* 4.0 -- -- CA 9.4 < > -- < > 9.2 9.8 8.7 9.8 -- -- TBILI 0.7 < > -- < > 1.3 1.1 0.9 0.8 -- -- ALKPHOS 89 < > -- < > 112 84 110 107 -- -- GLUC 198* < > -- < > 113* 176* 100* 123* -- -- BUN 25 < > -- < > 18 19 21 24* -- -- CREAT 0.84 < > -- < > 0.92 0.72 0.96 0.72 -- -- NA 138 < > -- < > 138 135* 139 139 -- -- K 4.3 < > -- < > 3.9 4.2 4.1 4.3 -- -- CHLOR 101 < > -- < > 102 100 104 103 -- -- CO2 25 < > -- < > 27 27 26 26 -- -- ANION 12 < > -- < > 9 8* 9 10 -- -- EGFROTH >60 < > -- < > 65 86 61 86 -- -- HBA1C 6.9* < > -- < > 7.9* 7.3* 7.4* 7.7* -- 7.7* < > = values in this interval not displayed. Recent Labs 05/04/21 0729 09/02/21 0712/24/21 0718 09/14/22 0724 05/16/23 0725 09/01/23 1247 05/22/24 1133 TG 84 -- 87 76 -- -- -- CHOL 180 -- 173 186 -- -- -- HDL 58 -- 54 73 -- -- -- VLDL 17 -- 17 15 -- -- -- LDL 105* -- 102* 98 -- -- -- FASTTIME 10 -- 12 10 -- -- -- TCHDL 3.10 -- 3.20 2.55 -- -- -- LDLHDL 1.81 -- 1.89 1.34 -- -- -- NONHDL 122 -- 119 113 -- -- -- HBA1C 7.4* < > 7.9* 7.3* 7.4* 7.7* 7.7* HBA0 166 < > 180 163 166 174 174 < > = values in this interval not displayed. PAST MEDICAL HISTORY Diagnosis Date Adverse reaction [...] 10/12/2006 Rosacea 09/06/2007 Vitamin D deficiency 08/21/2010 PAST SURGICAL HISTORY [...] Types: Cigarettes Quit date: 10/21/1998 Years since quittin.2 Smokeless tobacco: Never Vaping Use Vaping Use: Never used Substance Use Topics Alcohol use: Yes Comment: Rarely Drug use: No Current Outpatient Medications Medication Sig insulin aspart U-100 (NOVOLOG U-100 INSULIN ASPART) 100 unit/mL Inject 4 units with breakfast, 6 units with lunch, 8 units dinner. PLUS SS#1 (1 units for every 50 over 150 PRE MEAL blood sugar) TDD 30 units daily insulin glargine 100 unit/mL (3 mL) Inject 30 Units subcutaneously daily at bedtime. Give Lantus, not Basaglar per patient preference cholecalciferol, Vitamin D3, (VITAMIN D3) 1,250 mcg (50,000 unit) cap capsule Take 1 capsule by mouth one time a week. blood sugar diagnostic (BLOOD GLUCOSE TEST) test strip Test blood sugar(s) 8 times daily--MedicallyNecessary for labile blood sugars (highs and lows). Dx: Other DM Code E10.8, E11.610 Insulin: Yes budesonide-formoterol (SYMBICORT) 160-4.5 mcg/actuation inhaler Inhale 2 Puffs as instructed two times a day. aspirin, enteric coated (ASPIRIN, ENTERIC COATED) 81 mg EC tablet Take 1 tablet by mouth two times a day. (Patient taking differently: Take 81 mg by mouth once daily.) zolpidem (AMBIEN) 5 mg tablet Take 0.5-1 tablets by mouth at bedtime as needed for up to 90 days. ramipril (ALTACE) 10 mg capsule Take 1 capsule by mouth two times a day. metoprolol tartrate, short acting, (LOPRESSOR) 50 mg tablet Take 1/2 tablet by mouth twice a day furosemide (LASIX) 20 mg tablet Take 1 tablet by mouth once daily as needed. (Patient taking differently: Take 20 mg by mouth once daily as needed (edema).) amLODIPine (NORVASC) 10 mg tablet Take 0.5 tablets by mouth once daily. mometasone (ELOCON) 0.1 % cream Apply to affected area once daily as needed (for scalp psoriasis). For 14 days. Treat for recurrences. Apply at bedtime then wash off in the morning flash glucose sensor (FREESTYLE RAISSA 2 SENSOR) kit Apply new sensor every fourteen (14) days to upper arm. (Patient not taking: Reported on 01/02/2024) L. acidophilus/Bifid. animalis (DAILY PROBIOTIC ORAL) Take 1 capsule by mouth once daily. (Patient not taking: Reported on 01/12/2024) Insulin [place], Disposable, (BD ULTRA-FINE FADY PEN NEEDLE) 32 [...] pill twice daily to help with cough (Patient taking differently: Take 200-400 mg by mouth four times a day as needed (Take with food.).) No current facility-administered medications for this visit. ALLERGIES Allergen Reactions Hctz [Amiloride-Hyd* Other: See Comments Rapid heart beat, nausea, light eaded. (lasted about 12 hours after first dose) Oseltamivir Mental Status Change hallucinations Doxycycline GI Upset Escitalopram Intolerance Fatigued after just a half pill dose. Did not want to take anymore. Lysine Itching Naprosyn [Naproxen] GI Upset Nausea Luumnez-Dxu-Sno Red* Myalgia Tylenol-Codeine #3 * Vomiting Ventolin [Albuterol* GI Upset, Vomiting REVIEW OF SYSTEMS - POSITIVES IN BOLD GENERAL:No weight loss, malaise or fevers HEENT:Negative for frequent or significant headaches, No changes in hearing or vision, no nose bleeds or other nasal problems NECK:Negative for lumps, goiter, pain and significant neck swelling RESPIRATORY: Negative for cough, hemoptysis, wheezing, COPD, dyspnea or shortness of breath CARDIOVASCULAR: Negative for chest pain, leg swelling, hypertension, CHF or palpitations PHYSICAL EXAMINATION: Pulse 65 Temp 36.6 C (97.8 F) (Temporal Artery) Ht 176.5 cm (5' 9.5) Wt (!) 142.9 kg (315 lb) SpO2 96% BMI 45.85 kg/m GENERAL: alert and appropriate, in no distress and well-hydrated, well nourished SKIN: no rash noted HEAD: normocephalic, no abnormality or lesion noted EYES: PERRL NECK: full ROM, no cervical LNs noted ACANTHOSIS: none noted EXTREMITIES: normal NEUROLOGIC: no obvious deficit ASSESSMENT/PLAN (E10.9) Diabetes mellitus type 1, controlled, without complications (HCC) (primary encounter diagnosis) Comment: Patient much more stable and is starting to understand relationship between her carb intake and insulin dosing. Will cont current insulin dosing STRONGLY RECOMMEND SEEING ENDO WEB APPLICATION DEV SPECIALIST and starting to learn insulin to carb ratio, and advanced carb counting. Patient/ much more relaxed today and are starting to feel that they are able to be in control of the patient's blood sugars regardless of her diet, although patient is still being very carefulwith her choices. CONSULT TO ENDO WEB APPLICATION DEV SPECIALIST. Plan: COMPREHENSIVE METABOLIC PANEL, LIPID PANEL, NONFASTING, ALBUMIN/CREATININE RATIO, URINE, HEMOGLOBIN A1C, ENDOCRINOLOGY DIETITIAN VISIT (MNT) Renetta Mcgee CNP documented in this encounterWadsworth-[facility]itt[facility]07-31-2024 NoteW[facility]07-29-2024 NoteW[facility]07-29-2024 History of Present illness Narrative* Octavio Reza MD - 02/13/2024 9:23 AM EDT This note was created using DAQRIriter. Subjective Attila Kidd is a 78 year old female. Patient presents with: F/U 4 month: Labs prior SUBJECTIVE: Attila Kidd is a 78 year old year old lady here today for 4 month follow up appointment for review of medical conditions. Noted patient as aiming for HgA1C 7.2. Skin lesion on right cheek recurred. Was treated by Dr. Blanton but after a couple years recurred. Wondered about glands in neck. Sometimes bother her--sometimes feels bigger than other times and with soreness when gets larger.. Seems to be associated when gets itching or hurting in scalp area. Nizoral shampoo and elocon topical helps. Burning sensation in throat when used generic budesonide/formoterol. Tried twice. Symbicort does not cause a problem. Ambien--generic pill is tiny. Needs to cut in half. Pain down left side--down leg to foot. Makes it hard to get out of bed. Feels like a ball in [place] helps. Ice pack helps. Sleeps on wedge pillows because SOB if lays too flat. Slides down by AM. Has THAIS and has not been able to tolerate BiPAP. Was evaluated at [facility]. Gatorade 1 small bottle and 5 to 6 cups of water. PAST MEDICAL HISTORY Diagnosis Date Adverse reaction [...] 10/12/2006 Rosacea 09/06/2007 Vitamin D deficiency 08/21/2010 Current Outpatient Medications Medication Sig insulin aspart U-100 (NOVOLOG U-100 INSULIN ASPART) 100 unit/mL Inject 4 units with breakfast, 6 units with lunch, 8 units dinner. PLUS SS#1 (1 units for every 50 over 150 PRE MEAL blood sugar) TDD 30 units daily insulin glargine 100 unit/mL (3 mL) Inject 30 Units subcutaneously daily at bedtime. Give Lantus, not Basaglar per patient preference cholecalciferol, Vitamin D3, (VITAMIN D3) 1,250 mcg (50,000 unit) cap capsule Take 1 capsule by mouth one time a week. blood sugar diagnostic (BLOOD GLUCOSE TEST) test strip Test blood sugar(s) 8 times daily--MedicallyNecessary for labile blood sugars (highs and lows). Dx: Other DM Code E10.8, E11.610 Insulin: Yes aspirin, enteric coated (ASPIRIN, ENTERIC COATED) 81 mg EC tablet Take 1 tablet by mouth two times a day. (Patient taking differently: Take 81 mg by mouth once daily.) zolpidem (AMBIEN) 5 mg tablet Take 0.5-1 tablets by mouth at bedtime as needed for up to 90 days. ramipril (ALTACE) 10 mg capsule Take 1 capsule by mouth two times a day. metoprolol tartrate, short acting, (LOPRESSOR) 50 mg tablet Take 1/2 tablet by mouth twice a day furosemide (LASIX) 20 mg tablet Take 1 tablet by mouth once daily as needed. (Patient taking differently: Take 20 mg by mouth once daily as needed (edema).) amLODIPine (NORVASC) 10 mg tablet Take 0.5 tablets by mouth once daily. mometasone (ELOCON) 0.1 % cream Apply to affected area once daily as needed (for scalp psoriasis). For 14 days. Treat for recurrences. Apply at bedtime then wash off in the morning Insulin [place], Disposable, (BD ULTRA-FINE FAYD PEN NEEDLE) 32 gauge x 5/32 Use [...] pill twice daily to help with cough (Patient taking differently: Take 200-400 mg by mouth four times a day as needed (Take with food.).) budesonide-formoterol (SYMBICORT) 160-4.5 mcg/actuation inhaler Inhale 2 Puffs as instructed two times a day. (Patient not taking: Reported on 02/13/2024) flash glucose sensor (FREESTYLE RAISSA 2 SENSOR) kit Apply new sensor every fourteen (14) days to upper arm. (Patient not taking: Reported on 01/02/2024) L. acidophilus/Bifid. animalis (DAILY PROBIOTIC ORAL) Take 1 capsule by mouth once daily. (Patient not taking: Reported on 01/12/2024) COMPOUNDED PRESCRIPTION Bi-PAP nose pads. (G47.33) THAIS treated with BiPAP (Patient not taking: Reported on 02/13/2024) No current facility-administered medications for this visit. Review of Systems Objective BP 130/80 Pulse (!) 59 Temp 36.4 C (97.5 F) Resp 16 Wt (!) 143 kg (315 lb 3.2 oz) SpO2 97% BMI 45.88 kg/m Last 5 Encounter Wt Readings: Date: Wt: 02/13/2024 143 kg (315 lb 3.2 oz) 01/02/2024 145.4 kg (320 lb 8.8 oz) 12/07/2023 149.7 kg (330 lb) 11/09/2023 150.1 kg (331 lb) 10/31/2023 156 kg (344 lb) No waist measurement recorded Estimated body mass index is 45.88 kg/m as calculated from the following: Height as of 12/07/23: 176.5 cm (5' 9.5). Weight as of this encounter: 143 kg (315 lb 3.2 oz). Last 5 Encounter BP Readings: Date: BP: 02/13/2024 130/80 01/02/2024 152/82 12/07/2023 132/70 11/09/2023 132/70 10/31/2023 142/82 Physical Exam Constitutional: Appearance: Normal appearance. HENT: Head: Normocephalic. Eyes: Conjunctiva/sclera: Conjunctivae normal. Neck: Comments: Tonsillar lymph nodes a little fullness but not firm or really large Cardiovascular: Rate and Rhythm: Normal rate and regular rhythm. Heart sounds: Normal heart sounds. Pulmonary: Effort: Pulmonary effort is normal. Breath sounds: Normal breath sounds. Lymphadenopathy: Cervical: Right cervical: No superficial, deep or posterior cervical adenopathy. Left cervical: No superficial, deep or posterior cervical adenopathy. Skin: General: Skin is warm and dry. Comments: Right cheek skin lesion--wart like Neurological: General: No focal deficit present. Mental Status: She is alert and oriented to person, place, and time. Psychiatric: Mood and Affect: Mood normal. Behavior: Behavior normal. Thought Content: Thought content normal. Judgment: Judgment normal. Latest Ref Rng 09/01/2023 09/02/2023 12/07/2023 01/27/2024 WBC 3.70 - 11.00 k/uL 7.30 5.29 RBC 3.90 - 5.20 m/uL 4.43 4.29 Hemoglobin 11.5 - 15.5 g/dL 13.0 12.7 Hematocrit 36.0 - 46.0 % 39.8 38.3 MCV 80.0 - 100.0 fL 89.8 89.3 MCH 26.0 - 34.0 pg 29.3 29.6 MCHC 30.5 - 36.0 g/dL 32.7 33.2 RDW-CV 11.5 - 15.0 % 12.6 12.6 Platelet Count 150 - 400 k/uL 199 195 MPV 9.0 - 12.7 fL 12.7 12.5 Neut% % 82.8 71.6 Abs Neut (ANC) 1.45 - 7.50 k/uL 6.05 3.79 Lymph% % 6.6 15.3 Abs Lymph 1.00 - 4.00 k/uL 0.48 (L) 0.81 (L) Titus% % 6.3 7.6 Abs Titus <0.87 k/uL 0.46 0.40 Eosin% % 3.6 4.9 Abs Eosin <0.46 k/uL 0.26 0.26 Baso% % 0.4 0.4 Abs Baso <0.11 k/uL 0.03 <0.03 Immature Gran % % 0.3 0.2 IMMATURE GRANS (ABS) <0.10 k/uL <0.03 <0.03 NRBC /100 WBC 0.0 0.0 Absolute nRBC <0.01 k/uL <0.01 <0.01 DTYPE Auto Auto Protein, Total 6.3 - 8.0 g/dL 7.1 6.7 Albumin 3.9 - 4.9 g/dL 4.0 3.9 Calcium 8.5 - 10.2 mg/dL 9.8 9.4 Bilirubin, Total 0.2 - 1.3 mg/dL 0.8 0.8 Alkaline Phosphatase 34 - 123 U/L 107 101 AST 13 - 35 U/L 16 14 ALT 7 - 38 U/L 14 12 Glucose 74 - 99 mg/dL 123 (H) 114 (H) BUN 7 - 21 mg/dL 24 (H) 18 Creatinine 0.58 - 0.96 mg/dL 0.72 0.77 Sodium 136 - 144 mmol/L 139 139 Potassium 3.7 - 5.1 mmol/L 4.3 4.1 Chloride 98 - 107 mmol/L 103 102 CO2 22 - 30 mmol/L 26 28 Anion Gap 8 - 15 mmol/L 10 9 eGFR >=60 mL/min/1.73m 86 79 Cholesterol, Total <200 mg/dL 175 Triglyceride <150 mg/dL 77 HDL Cholesterol >39 mg/dL 62 Non HDL Cholesterol <130 mg/dL 113 Fasting Time hrs 10 VLDL Cholesterol <30 mg/dL 15 TC:HDL Ratio <5.10 2.82 LDL Cholesterol <100 mg/dL 98 LDL:HDL Ratio <2.54 1.58 Creatinine, Ur Random (UCRR) 20.0 - 300.0 mg/dL 78.0 Albumin, Urine Random mg/L <12.0 Albumin/Creat Ratio <30 mg/g <15 Hemoglobin A1C 4.3 - 5.6 % 7.7 (H) 7.7 (H) Estimated Average Glucose mg/dL 174 174 Glutamic Acid Decarboxylas Ab Qualitative Negative Positive ! Glutamic Acid Decarboxylase Ab <=5.0 IU/mL 6.7 (H) WSR 0 - 20 mm/hr 27 (H) CRP <0.9 mg/dL 1.3 (H) DORA Negative Negative Rheumatoid Factor <16 IU/mL <10 Vitamin D 25 Hydroxy 31.0 - 80.0 ng/mL 46.2 71.5 Islet Cell Ab <1:4 <1:4 Legend: (L) Low (H) High ! Abnormal Hemoglobin A1C (%) Date Value 12/07/2023 7.7 09/01/2023 7.7 05/16/2023 7.4 09/14/2022 7.3 12/24/2021 7.9 09/02/2021 7.8 05/04/2021 7.4 01/06/2021 8.4 08/11/2020 8.3 04/08/2020 7.8 Assessment and Plan Encounter Diagnosis ICD-10-CM 1. 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) E10.8 Still with good control with no lows. Following with endocrinology now. has appointment ion a couple days. Discussed HgA1C in 7 range is fine. 2. Primary insomnia F51.01 zolpidem (AMBIEN) 5 mg tablet Stable on present med. Continuers on Ambien as needed 3. THAIS (obstructive sleep apnea) G47.33 CONSULT TO SLEEP MEDICINE - ADULT Has not been able to tolerate her BiPAP; still has machine. Uses O2 at night. Will refer to sleep medicine to see if can help adjust BiPAP 4. Encounter for immunization Z23 TDAP PRINTED PHARMACY INSTRUCTIONS RSV PRINTED PHARMACY INSTRUCTIONS 5. Class 3 severe obesity due to excess calories with body mass index (BMI) of 45.0 to 49.9 in adult, unspecified whether serious comorbidity present (HCC) E66.01 Z68.42 Doingw ell with gradual weight loss. Above issues addressed with patient. Patient involved [...] which included preparing to see the patient, [id number] patient care, completing clinical documentation, obtaining and/or reviewing separately obtained history, performing a medically appropriate examination, counseling and educating the pat ient/family/caregiver, ordering medications, tests, or procedures, independently interpreting results (not separately reported), and communicating results to the patient/family/caregiver. Octavio Reza MD documented in this encounterWad[facility]07-[facility] Telephone encounter Note * Telephone Encounter - Ritika Santos LPN - 01/26/2024 3:01 PM EDT Patient notified of providers message and verbalized understanding [facility]07-11-2024 Miscellaneous Notes* Telephone Encounter - Ritika Santos LPN - 01/26/2024 3:01 PM EDT Patient notified of providers message and verbalized understanding * Telephone Encounter - Lydia Grande APRN.MADELIN - 01/26/2024 2:42 PM EDT Labs ordered * Telephone Encounter - Darlene Mena RN - 01/25/2024 4:42 PM EDT Patient calls back confused because her appointment on after visit summary was listed as 02/06. Patient advised that it was 02/06 at one time but provider was not in office and it was switched to 02/12. Patient voiced understanding. Patient put right date on her calendar. Darlene Mena RN * Telephone Encounter - Asmita Tapia RN - 01/25/2024 4:29 PM EDT Patient calling to check on status of request below. Please place lab orders for upcoming appt, when able. Pt reminded that her appointment is on 02/13/24 and not 02/06. Call patient with update [phone]. Thank you. * Telephone Encounter - Bettina Murray LPN - 01/25/2024 8:13 AM EDT Pt has an appt 02/13/24 & is asking that lab orders be placed if she is due for any. Please notify pt. Please notify pt that her appt is 02/12 not 02/06 as she told me on the phone Bettina Murray LPN documented in this encounterWadsworth-[facility]07-11-2024 Telephone encounter Note * Telephone Encounter - Lydia Grande APRN.CNS - 01/26/2024 2:42 PM EDT Labs ordered [facility]07-10-2024 Telephone encounter Note* Telephone Encounter - Darlene Mena RN - 01/25/2024 4:42 PM EDT Patient calls back confused because her appointment on after visit summary was listed as 02/06. Patient advised that it was 02/06 at one time but provider was not in office and it was switched to 02/12. Patient voiced understanding. Patient put right date on her calendar. Darlene Mena RN [facility]07-10-2024 Telephone encounter Note* Telephone Encounter - Asmita Tapia RN - 01/25/2024 4:29 PM EDT Patient calling to check on status of request below. Please place lab orders for upcoming appt, when able. Pt reminded that her appointment is on 02/13/24 and not 02/06. Call patient with update [phone]. Thank you. [facility]07-[facility] Telephone encounter Note* Telephone Encounter - Bettina Murray LPN - 01/25/2024 8:13 AM EDT Pt has an appt 02/13/24 & is asking that lab orders be placed if she is due for any. Please notify pt. Please notify pt that her appt is 02/12 not 02/06 as she told me on the phone Bettina Murray LPN [facility]07-[facility] History of Present illness Narrative* Tawanda Wolff, DEONNA - 01/18/2024 9:37 AM EDT DIABETES CARE AND EDUCATION VISIT Location: [place] Type of visit: In person individual PATIENT'S MAIN CONCERN TODAY: Review what I'm doing Support person present for education today: spouse Cognitive ability: Alert and oriented Motivation to learn: Interested Learning barriers identified by educator: none Method of instruction: written, verbal, and demonstration DIABETES FINDINGS: Monitoring: Reviewed sugars, she is variable - adjusted dosages from Pharmacist seem to be working better, some mild lows - Encouraged that they reconsider using a CGM, they are not tech hermelinda but discussed the receivers as useful and easy to operate Meal Planning: reviewed basic foods with carbs and discussed the idea of carb counting Medications: pt states they are currently taking Glargine and Sapart as recommended Problem Solving: reviewed lows and highs and when to report HANDOUTS: Healthy You: Survival Skills and Healthy You: Planning Healthy Meals LEARNING RESPONSE: Diabetes pathophysiology: Demonstrated understanding/competency today or at previous visit Healthy eating: Demonstrated understanding/competency today or at previous visit Taking medications: Demonstrated understanding/competency today or at previous visit Monitoring glucose: Demonstrated understanding/competency today or at previous visit POSSIBLE FUTURE TOPICS: 1. DIABETES CARE AND EDUCATION PLAN: Education completed and annual diabetes education follow-up visit recommended Time Spent (Minutes): 60 This visit note will be communicated to the healthcare provider via access to shared medical record. SIGNATURE: Tawanda Wolff RN PATIENT NAME: Attila Kidd DATE: January 18, 2024 TIME: 9:37 AM documented in this encounterWadsworth-[facility]06-27-2024 History of Present illness Narrative* Charis Lucas, [facility] - 01/12/2024 9:00 AM EDT Primary Care Pharmacy Visit CC (Reason for Consult): (E10.8) 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) (primary encounter diagnosis) Goal(s): A1c <8% Last Collaborating Provider Visit: 12/07/23 with Renetta Mcgee CNP Attila Kidd is a 78 year old female presenting for initial visit: This initial consult was conducted telephone call with the patient where the consult agreement was explained. The patient may decline or cancel the agreement at any time. After consideration, the patient consented to the pharmacy consult agreement and agreed to allow medications be collaboratively managed by a pharmacist. HPI: States she was diagnosed with DM about 35 years ago. States recently had lab tests confirming her diagnosis of type 1 DM. States she was on oral meds at very beginning, but then transitioned to insulin States was previously eating and then taking insulin; however, now doing it differently/correctly. Is now measuring BG before meal and then determining dose of Novolog based on sliding scale to add to base dose and has been doing a lot better Has not tried the CGM before; however, states she prefers to not use it at this time Current DM Medications: Lantus 30 units once daily at bedtime Novolog 4 units with breakfast, 6 units with lunch and 6 units with dinner + SS#1 - taking 4-4-6 +sliding scale #1 Diet Eating 3 meals/day (7a, 12p, 430p) Diet consists of salmon, chicken, shrimp or tuna, rarely beef Asparagus, green beans, broccoli and salads Mozzarella or feta cheese Desserts - only has one if sugar is too low and has peanut butter, yogurt or 2 cookies Tea., coffee, Gatorade zero, water Can't tolerate ice cream, rice, potatoes, grapes, pineapple Bedtime snack: 2 peanut butter crackers Occasionally has a snack in between meals Exercise: Yes - limited with charcot foot, is in a wheelchair part of the time, can walk with a walker at home; rides stationary bike every day for ~3 miles/day GLYCEMIC CONTROL: Glucometer present at visit: BG log present Hypoglycemia: No - reports lowest was 70, 75, but not recently SMBGS (Fingersticks) Date Fasting AM 2 hr PP Before Lunch 2 hr PP Before Dinner 2 hr PP Bedtime 01/08 204/6u* 274/7u 205 /8u 187 01/09 186/5u 173 306/8u 291/2u 169 /7u 162 01/11 117/4u 142 01/04 149/4u 150/5u 209/7u 190 01/10 171/5u 184/5u 175/7u 163 6/9 128 AVG 159 157 228 189 175 *had eggs and toast for breakfast this day Past medical history reviewed. ALLERGIES Allergen Reactions Hctz [Amiloride-Hyd* Other: See Comments Rapid heart beat, nausea, light eaded. (lasted about 12 hours after first dose) Oseltamivir Mental Status Change hallucinations Doxycycline GI Upset Escitalopram Intolerance Fatigued after just a half pill dose. Did not want to take anymore. Lysine Itching Naprosyn [Naproxen] GI Upset Nausea Dwfsaqv-Ivp-Fme Red* Myalgia Tylenol-Codeine #3 * Vomiting Ventolin [Albuterol* GI Upset, Vomiting Current Outpatient Medications Medication Sig Dispense Refill insulin glargine 100 unit/mL (3 mL) Inject 30 Units subcutaneously daily at bedtime. Give Lantus, not Basaglar per patient preference 5 Each 11 insulin aspart U-100 (NOVOLOG U-100 INSULIN ASPART) 100 unit/mL Inject 4 units with breakfast, 6 units with lunch, 6 units dinner. PLUS SS#1 (1 units for every 50 over 150 PRE MEAL blood sugar) TDD 30 units daily 30 mL 3 cholecalciferol, Vitamin D3, (VITAMIN D3) 1,250 mcg (50,000 unit) cap capsule Take 1 capsule by mouth one time a week. 12 capsule 4 blood sugar diagnostic (BLOOD GLUCOSE TEST) test strip Test blood sugar(s) 8 times daily--MedicallyNecessary for labile blood sugars (highs and lows). Dx: Other DM Code E10.8, E11.610 Insulin: Yes 200 Strip 11 budesonide-formoterol (SYMBICORT) 160-4.5 mcg/actuation inhaler Inhale 2 Puffs as instructed two times a day. 1 Each 11 aspirin, enteric coated (ASPIRIN, ENTERIC COATED) 81 mg EC tablet Take 1 tablet by mouth two times a day. zolpidem (AMBIEN) 5 mg tablet Take 0.5-1 tablets by mouth at bedtime as needed for up to 90 days. 30 tablet 2 ramipril (ALTACE) 10 mg capsule Take 1 capsule by mouth two times a day. 180 capsule 3 metoprolol tartrate, short acting, (LOPRESSOR) 50 mg tablet Take 1/2 tablet by mouth twice a day (Patient not taking: Reported on 01/02/2024) 90 tablet 3 furosemide (LASIX) 20 mg tablet Take 1 tablet by mouth once daily as needed. (Patient taking differently: Take 20 mg by mouth once daily as needed (edema).) 90 tablet 3 amLODIPine (NORVASC) 10 mg tablet Take 0.5 tablets by mouth once daily. 90 tablet 3 mometasone (ELOCON) 0.1 % cream Apply to affected area once daily as needed (for scalp psoriasis). For 14 days. Treat for recurrences. Apply at bedtime then wash off in the morning 45 g 1 flash glucose sensor (FREESTYLE RAISSA 2 SENSOR) kit Apply new sensor every fourteen (14) days to upper arm. (Patient not taking: Reported on 01/02/2024) 6 Each 4 L. acidophilus/Bifid. animalis (DAILY PROBIOTIC ORAL) Take 1 capsule by mouth once daily. Insulin [place], Disposable, (BD ULTRA-FINE FADY PEN NEEDLE) 32 gauge x Use one needle for each dose. 1-2 /day. 100 Each 11 albuterol HFA (PROVENTIL HFA, VENTOLIN HFA) 90 mcg/actuation inhaler Inhale 2 Puffs as instructed four times daily as needed. FOR WHEEZING AND SHORTNESS OF BREATH. 6.7 g 11 COMPOUNDED PRESCRIPTION Bi-PAP nose pads. (G47.33) THAIS treated with BiPAP 2 Device 1 ibuprofen 200 mg tablet Take 1-2 tablets by mouth four times daily as needed (Take with food.). --currently only needing 1 pill twice daily to help with cough (Patient taking differently: Take 200-400 mg by mouth four times a day as needed (Take with food.).) No current facility-administered medications for this visit. Pill bottles are not present. Adherence: denies missed doses. Rx coverage: Payor: T MEDICARE / Plan: [employer] MEDICARE PPO / Product Type: PPO / Medications affordable? Yes PHARMACOTHERAPY PREVENTATIVE MEDS: On JOEY/ARB: Yes On Statin: No On ASA: Yes EXAM: There were no vitals taken for this visit. Last 3 Encounter BP Readings: Date: BP: 01/02/2024 152/82 12/07/2023 132/70 11/09/2023 132/70 Wt: 145.4 kg (320 lb 8.8 oz) BMI: 46.66 kg/(m^2) LABS: Lab Results Component Value Date HBA1C 7.7 12/07/2023 HBA1C 7.7 09/01/2023 HBA1C 7.4 05/16/2023 HBA1C 7.8 09/02/2021 HBA1C 7.4 05/04/2021 HBA1C 8.4 01/06/2021 Glucose 123 09/01/2023 BUN 24 09/01/2023 Creatinine, Whole Blood (iSTAT) 0.72 09/01/2023 Sodium 139 09/01/2023 Potassium 4.3 09/01/2023 Chloride 103 09/01/2023 CO2 26 09/01/2023 Protein, Total 7.1 09/01/2023 Albumin 4.0 09/01/2023 Calcium 9.8 09/01/2023 Alkaline Phosphatase 107 09/01/2023 Bilirubin, Total 0.8 09/01/2023 AST 16 09/01/2023 ALT 14 09/01/2023 Lab Results Component Value Date CHOL 186 09/14/2022 CHOL 180 05/04/2021 LDL 98 09/14/2022 LDL 105 05/04/2021 HDL 73 09/14/2022 HDL 58 05/04/2021 TG 76 09/14/2022 TG 84 05/04/2021 Albumin/Creat Ratio (mg/g) Date Value 09/02/2023 <15 eGFR-All Other Races (.) Date Value 09/11/2021 >60 Estimated Glomerular Filtration Rate (mL/min/1.73m ) Date Value 09/01/2023 86 ASSESSMENT/PLAN: 1. 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 Follow Up: Next PCP visit: 02/07/24 Next Endo visit: 02/15/24 Next PharmD visit: 02/28/24 Charis Lucas, PharmD, BCACP Primary Care Clinical Global Sales Manager documented in this encounterWadsworth-[facility]06-27-2024 Note[facility]06-17-20[facility] NoteW[facility]06-17-2024 History of Present illness Narrative* Tamika Morris MD - 01/02/2024 11:36 AM EDT Patient presents with: sore lump on side of right neck: X 1 week HPI: Right neck swelling: Duration: noticed 1 week Location: right neck below the jaw Character: tender today for the first time Radiation: No. Aggravating: touching Relieving: Pain relievers: Motrin Associated: fullness in the neck below the jaw, warty lesion on the right cheek she has been picking at, Pertinent negatives: Denies fever, sore throat, tooth/dental pain, earache MEDICATIONS: insulin glargine 100 unit/mL (3 mL) Inject 30 Units subcutaneously daily at bedtime. Give Lantus, not Basaglar per patient preference insulin aspart U-100 (NOVOLOG U-100 INSULIN ASPART) 100 unit/mL Inject 4 units with breakfast, 6 units with lunch, 6 units dinner. PLUS SS#1 (1 units for every 50 over 150 PRE MEAL blood sugar) TDD 30 units daily cholecalciferol, Vitamin D3, (VITAMIN D3) 1,250 mcg (50,000 unit) cap capsule Take 1 capsule by mouth one time a week. blood sugar diagnostic (BLOOD GLUCOSE TEST) test strip Test blood sugar(s) 8 times daily--MedicallyNecessary for labile blood sugars (highs and lows). Dx: Other DM Code E10.8, E11.610 Insulin: Yes budesonide-formoterol (SYMBICORT) 160-4.5 mcg/actuation inhaler Inhale 2 Puffs as instructed two times a day. aspirin, enteric coated (ASPIRIN, ENTERIC COATED) 81 mg EC tablet Take 1 tablet by mouth two times a day. ramipril (ALTACE) 10 mg capsule Take 1 capsule by mouth two times a day. furosemide (LASIX) 20 mg tablet Take 1 tablet by mouth once daily as needed. (Patient taking differently: Take 20 mg by mouth once daily as needed (edema).) amLODIPine (NORVASC) 10 mg tablet Take 0.5 tablets by mouth once daily. mometasone (ELOCON) 0.1 % cream Apply to affected area once daily as needed (for scalp psoriasis). For 14 days. Treat for recurrences. Apply at bedtime then wash off in the morning L. acidophilus/Bifid. animalis (DAILY PROBIOTIC ORAL) Take 1 capsule by mouth once daily. Insulin [place], Disposable, (BD ULTRA-FINE FADY PEN NEEDLE) 32 [...] pill twice daily to help with cough (Patient taking differently: Take 200-400 mg by mouth four times a day as needed (Take with food.).) zolpidem (AMBIEN) 5 mg tablet Take 0.5-1 tablets by mouth at bedtime as needed for up to 90 days. metoprolol tartrate, short acting, (LOPRESSOR) 50 mg tablet Take 1/2 tablet by mouth twice a day (Patient not taking: Reported on 01/02/2024) flash glucose sensor (FREESTYLE RAISSA 2 SENSOR) kit Apply new sensor every fourteen (14) days to upper arm. (Patient not taking: Reported on 01/02/2024) ALLERGIES: ALLERGIES Allergen Reactions Hctz [Amiloride-Hyd* Other: See Comments Rapid heart beat, nausea, light eaded. (lasted about 12 hours after first dose) Oseltamivir Mental Status Change hallucinations Doxycycline GI Upset Escitalopram Intolerance Fatigued after just a half pill dose. Did not want to take anymore. Lysine Itching Naprosyn [Naproxen] GI Upset Nausea Byeqevw-Pca-Cps Red* Myalgia Tylenol-Codeine #3 * Vomiting Ventolin [Albuterol* GI Upset, Vomiting VITALS: BP 152/82 Pulse 60 Temp 36.4 C (97.6 F) (Tympanic) Resp 18 Wt (!) 145.4 kg (320 lb 8.8 oz) SpO2 95% BMI 46.66 kg/m PHYSICAL EXAM: GEN: pleasant, no acute distress, alert, in wheelchair, accompanied by her . HEENT: PERRL, EOMI, MMM, wearing partial dentures, solitary tooth right lower jaw is nontender, no gingival ulceration/erythema/edema, 2 to 3 mm pigmented macules of the mucous membrane inside the right oral canthus. 4 mm multi horned keratotic lesion over the right cheek NECK: supple, fullness in the subcutaneous space of the right submandibular area, no other lymphadenopathy, no thyromegaly ASSESSMENT/PLAN: 1. Localized swelling, mass and lump, neck - ICD9: 784.2, ICD10: R22.1 (primary diagnosis) Reactive lymphadenopathy or acute salivary gland inflammation. No obvious palpable obstruction. Shewill stop manipulating the lesion on her cheek. She may use lemon water to induce elevation. Follow-up if the lesion is worsening or not resolving after 1 to 2 weeks. 2. Cutaneous horn - ICD9: 702.8, ICD10: L85.8 Reports she has had this lesion removed by her engine inspector a few years ago. She will follow-up with Dr. Blanton for dermatologic reevaluation of potentially precancerous lesion. Tamika Morris MD documented in this encounterWadsworth-Ritt[facility]06-11-2024 Telephone encounter Note * Telephone Encounter - Norma Devlin RN - 12/27/2023 9:48 AM EDT L/M for Pt to return call to office re: below notation per CNP. Norma Underwood RN December 27, 2023 9:48 AM [facility]06-11-2024 Miscellaneous Notes* Telephone Encounter - Norma Devlin RN - 12/27/2023 9:48 AM EDT L/M for Pt to return call to office re: below notation per CNP. Norma Underwood RN December 27, 2023 9:48 AM * Telephone Encounter - Renetta Mcgee APRN.CNP - 12/26/2023 5:51 PM EDT For the long acting basal insulin - she is actually monitoring her morning fasting blood sugars NOTthe bedtime sugars. If her morning sugars are running between 120-130, then she should stay on the 30 units of basal once daily. Please do NOT add fast acting insulin in between meals, her sliding scale is meant to correct for that, she is only going to take 4-6-6 plus SS#1 (1 extra unit of insulin for every 50 over 150 PRE MEAL blood sugar) the 4-6-6 is her meal base, she add the SS to that if she needs as based on pre mealblood sugar. Glad to hear that her sugars are leveling out. * Telephone Encounter - Sahara Moreno RN - 12/26/2023 8:24 AM EDT Patient phoned with update and questions for Zakia Mcgee: 1) Can she take insulin in between meals if BS runs high? 2) Should she still take 30 units lantus at bedtime if BS runs below 150? Reports she is doing much better since she started following Zakia Mcgee's recommendations. Reports nohighs and no lows like she use to get. BS on Sat: 24: fastin, 11 am: 116, 4:30 pm: 216 BS on Sun: 24: fastin, 10:45 am: 75, 11:05: 117, 4:45 pm: 180, 8:50 pm: 109, 9:45 pm: 181. BS this morning: fasting 175, states she could have avoided that number, but last evening BS was 81, and she ate a yoplait yogart, plus another 1/2 of yoplait. Please phone patient with reply. States she will keep following Zakia Mcgee's instructions until she hears back from you. documented in this encounterWadsworth[facility] Telephone encounter Note * Telephone Encounter - Renetta Mcgee APRN.CNP - 12/26/2023 5:51 PM EDT For the long acting basal insulin - she is actually monitoring her morning fasting blood sugars NOTthe bedtime sugars. If her morning sugars are running between 120-130, then she should stay on the 30 units of basal once daily. Please do NOT add fast acting insulin in between meals, her sliding scale is meant to correct for that, she is only going to take 4-6-6 plus SS#1 (1 extra unit of insulin for every 50 over 150 PRE MEAL blood sugar) the 4-6-6 is her meal base, she add the SS to that if she needs as based on pre mealblood sugar. Glad to hear that her sugars are leveling out. [facility]06-10[facility] Telephone encounter Note* Telephone Encounter - Sahara Moreno RN - 12/26/2023 8:24 AM EDT Patient phoned with update and questions for Zakia Mcgee: 1) Can she take insulin in between meals if BS runs high? 2) Should she still take 30 units lantus at bedtime if BS runs below 150? Reports she is doing much better since she started following Zakia Mcgee's recommendations. Reports nohighs and no lows like she use to get. BS on Sat: 12-24-23: fastin, 11 am: 116, 4:30 pm: 216 BS on Sun: 24: fastin, 10:45 am: 75, 11:05: 117, 4:45 pm: 180, 8:50 pm: 109, 9:45 pm: 181. BS this morning: fasting 175, states she could have avoided that number, but last evening BS was 81, and she ate a yoplait yogart, plus another 1/2 of yoplait. Please phone patient with reply. States she will keep following Zakia Mcgee's instructions until she hears back from you. [facility]05-24[facility] Telephone encounter Note* Telephone Encounter - Tierney Deluca MA - 12/09/2023 4:33 PM EDT Patient phoned and relayed message below as per provider. She reports understanding and has no further questions. Tierney Deluca MA [facility]05-24-2024 Miscellaneous Notes* Telephone Encounter - Tierney Deluca MA - 12/09/2023 4:33 PM EDT Patient phoned and relayed message below as per provider. She reports understanding and has no further questions. Tierney Deluca MA * Telephone Encounter - Renetta Mcgee APRN.CNP - 12/09/2023 4:14 PM EDT Please let the patient know she can have a snack and depending on what it is, can take 2-3 units offast acting insulin. I would ideally like for her to sit with the ENDO WEB APPLICATION DEV SPECIALIST (she will be starting her clinic in December) She really needs to understand the carb counting and how insulin to carb ratio works for coverage, this knowledge will put an end to her frustration with her sugars and keep her well controlled no matter what she decides to eat! Her JAYSON confirms TYPE I status for her. * Telephone Encounter - Trudy Wang MA - 12/09/2023 2:37 PM EDT Patient called in stating she has been following the diet plan that she was given. Her 3 meals are done by 5 pm. Patient is asking if she can have a snack between 5 & 10 pm when she goes to bed with a small amount of insulin? Sugars have still been high in the mornings. Today was 198 @ 0520 when she got up, was 206 @ 0620 when she had breakfast and took 6 units of lispro. She had lunch at 1030, sugar was 141 and she had green beans, salmon, cottage cheese and 1/2 piece of bread. She has not checked the sugar since then as she has been out running errands. Her phone is not currently working and she would like called on her husbands phone at [phone]. documented in this encounterWadsworth-[facility]05-24-[facility]24 Telephone encounter Note * Telephone Encounter - Renetta Mcgee APRN.CNP - 12/09/2023 4:14 PM EDT Please let the patient know she can have a snack and depending on what it is, can take 2-3 units offast acting insulin. I would ideally like for her to sit with the ENDO WEB APPLICATION DEV SPECIALIST (she will be starting her clinic in December) She really needs to understand the carb counting and how insulin to carb ratio works for coverage, this knowledge will put an end to her frustration with her sugars and keep her well controlled no matter what she decides to eat! Her JAYSON confirms TYPE I status for her. [facility] Telephone encounter Note* Telephone Encounter - Trudy Wang MA - 12/09/2023 2:37 PM EDT Patient called in stating she has been following the diet plan that she was given. Her 3 meals are done by 5 pm. Patient is asking if she can have a snack between 5 & 10 pm when she goes to bed with a small amount of insulin? Sugars have still been high in the mornings. Today was 198 @ 0520 when she got up, was 206 @ 0620 when she had breakfast and took 6 units of lispro. She had lunch at 1030, sugar was 141 and she had green beans, salmon, cottage cheese and 1/2 piece of bread. She has not checked the sugar since then as she has been out running errands. Her phone is not currently working and she would like called on her husbands phone at [phone]. [facility] Telephone encounter Note* Telephone Encounter - Madeline Quintana LPN - 12/09/2023 1:47 PM EDT Patient did go to the [facility] ER on 12/07/23. Copies of ED visit copied for provider. ED discharge note instructs patient to follow up with PCP only as needed. Madeline Quintana LPN [facility]05-24-[facility]24 Miscellaneous Notes* Telephone Encounter - Madeline Quintana LPN - 12/09/2023 1:47 PM EDT Patient did go to the [facility] ER on 12/07/23. Copies of ED visit copied for provider. ED discharge note instructs patient to follow up with PCP only as needed. Madeline Quintana LPN * Telephone Encounter - Palma Gibson LPN - 12/07/2023 3:08 PM EDT Patient calling, states that she is supposed to have a carotid US done but was told to watch for concerning symptoms. States that she is having shortness of breath, feels warm, and has hand weakness.Patient states that she is going to go to the ER for evaluation. Please advise. documented in this encounterWadsworth-[facility]05-22-2024 Telephone encounter Note * Telephone Encounter - Palma Gibson LPN - 12/07/2023 3:08 PM EDT Patient calling, states that she is supposed to have a carotid US done but was told to watch for concerning symptoms. States that she is having shortness of breath, feels warm, and has hand weakness.Patient states that she is going to go to the ER for evaluation. Please advise. [facility]-22-[facility] Instructions* Patient Instructions* Renetta Mcgee APRN.CNP - 12/07/2023 10:37 AM EDT LANTUS Inject 30 units once daily LISPRO Inject 4 units with breakfast plus SS#1 Inject 4 units with lunch plus SS#1 Inject 6 units with dinner plus SS#1 Sliding Scale Insulin Dosing Sliding Scale 1 (1 unit for every 50 mg/dL > 150 mg/dL) SUPPLEMENTAL INSULIN If Blood Glucose (mg/dL) is < 150 Give 0 units 151-200 Give 1 unit 201-250 Give 2 units 251-300 Give 3 units 301-350 Give 4 units 351-400 Give 5 units >400 Give 6 units, call physician if blood glucose does not improve. documented in this encounterWadsworth-[facility]05-22-2024 History of Present illness Narrative* Renetta Mcgee APRN.CNP - 12/07/2023 10:15 AM EDT NEW CONSULT OFFICE PROGRESS NOTE Reason for Consultation: DM Type 1 Referring Physician: SELF My final recommendations will be communicated back to the requesting physician by way of shared Medical record or letter via US mail. HISTORY OF PRESENT ILLNESS; Attila Kidd is a very pleasant 78 year old FEMALE is presenting as a new patient to me regardingDM Type 1. Here with today Very frustrated, confused as to what to eat, what is ok, what is not ok Trying to follow keto plan ? Patient and both very confused and overwhelmed with insulin dosing, blood sugar control. She was initially diagnosed with diabetes in 2005. The patient reports the following microvascular complications: peripheral neuropathy and charcot joint. Attila has no know macrovascular complications of diabetes. DM Education No Knows how to carb count No Exercise: limited CURRENT DM MEDS NOVOLOG 3-10 units with meals (per sliding scale, obtained from home care nurse 'years ago' LANTUS 27 units once daily SMBG Type of Monitor: Other Frequency of Monitorin times a day BG Values: RUNNING 200-335 all day, bring food log with blood sugars written out Hypoglycemia: no Diet: Low carbohydrate Exercise: limited DM REVIEW OF SYSTEMS Last Eye Exam : yearly Last Podiatry Exam: Cardiorespiratory: negative, denies chest pain, pressure Claudication: no Dyslipidemia: Yes, controlled on medication High Blood Pressure: Yes, controlled on medication CURRENT LABS Latest Ref Rng 09/01/2023 09/02/2023 Glucose 74 - 99 mg/dL 123 (H) [...] 25 Hydroxy 31.0 - 80.0 ng/mL 46.2 Legend: (H) High PAST MEDICAL HISTORY Diagnosis Date Adverse reaction [...] 10/12/2006 Rosacea 09/06/2007 Vitamin D deficiency 08/21/2010 PAST SURGICAL HISTORY [...] Types: Cigarettes Quit date: 10/21/1998 Years since quittin.0 Smokeless tobacco: Never Vaping Use Vaping Use: Never used Substance Use Topics Alcohol use: Yes Comment: Rarely Drug use: No Current Outpatient Medications Medication Sig insulin glargine 100 unit/mL (3 mL) Inject 22 Units subcutaneously daily at bedtime. Give Lantus, not Basaglar per patient preference blood sugar diagnostic (BLOOD GLUCOSE TEST) test strip Test blood sugar(s) 8 times daily--MedicallyNecessary for labile blood sugars (highs and lows). Dx: Other DM Code E10.8, E11.610 Insulin: Yes budesonide-formoterol (SYMBICORT) 160-4.5 mcg/actuation inhaler Inhale 2 Puffs as instructed two times a day. aspirin, enteric coated (ASPIRIN, ENTERIC COATED) 81 [...] breakfast. Dispense 6 vials (3 months supply) metoprolol tartrate, short acting, (LOPRESSOR) 50 mg tablet Take 1/2 tablet by mouth twice a day furosemide (LASIX) 20 mg tablet Take 1 tablet by mouth once daily as needed. (Patient taking differently: Take 10 mg by mouth once daily as needed.) amLODIPine (NORVASC) 10 mg tablet Take 0.5 tablets by mouth once daily. mometasone (ELOCON) 0.1 % cream Apply to affected area once daily as needed (for scalp psoriasis). For 14 days. Treat for recurrences. Apply at bedtime then wash off in the morning flash glucose sensor (FREESTYLE RAISSA 2 SENSOR) kit Apply new sensor every fourteen (14) days to upper arm. L. acidophilus/Bifid. animalis (DAILY PROBIOTIC ORAL) Take 1 capsule by mouth once daily. (Patient not taking: Reported on 11/09/2023) cholecalciferol, Vitamin D3, (VITAMIN D3) 1,250 mcg (50,000 unit) cap capsule Take 1 capsule by mouth one time a week. Insulin [place], Disposable, (BD ULTRA-FINE FADY PEN NEEDLE) 32 [...] Upset Nausea Ventolin [Albuterol* GI Upset, Vomiting REVIEW OF SYSTEMS - POSITIVES IN BOLD GENERAL:No weight loss, malaise or fevers HEENT:Negative for frequent or significant headaches, No changes in hearing or vision, no nose bleeds or other nasal problems NECK:Negative for lumps, goiter, pain and significant neck swelling RESPIRATORY: Negative for cough, hemoptysis, wheezing, COPD, dyspnea or shortness of breath CARDIOVASCULAR: Negative for chest pain, leg swelling, hypertension, CHF or palpitations PHYSICAL EXAMINATION: BP 132/70 (BP Site: Right Arm, BP Position: Sitting, BP Cuff Size: Large Adult) Pulse (!) 58 Resp 20 Ht 176.5 cm (5' 9.5) Wt (!) 149.7 kg (330 lb) SpO2 96% BMI 48.03 kg/m General appearance: Well appearing, alert, in no acute distress, well-hydrated, well nourished. andMorbidly obese Skin: Skin color, texture, turgor normal, no suspicious rashes or lesions Head: Normocephalic, no masses, lesions, tenderness or abnormalities Eyes: KAVIN Neck: thyroid symmetric to inspection Acanthosis: none noted Extremities: Edema: mild noted bilateral ankles, Neuro: Negative., Oriented X 3 ASSESSMENT: (E10.9) Diabetes mellitus type 1, controlled, without complications (HCC) (primary encounter diagnosis) Comment: Patient and are questioning whether patient is TYPE 1 or TYPE 2 Sts were told by some providers that she is type 2, other MD (now retired) told her she was TYPE I No JAYSON, ISLET cell available in chart. Patient blood sugars are running 200-350 all day Eating very limited diet and not nutritionally balanced as she does not know what she should be eating RECOMMEND seeing DM education and nutrition. Patient declines at this time Sts has multiple other appointments and is overwhelmed and feels she would not absorb information well Discussed will modify her current insulin regimen slightly Recommend seeing PHARMD for continued support with blood sugars, insulin dose adjust. They are agreeable. RECOMMEND THE FOLLOWING INSULIN DOSING The following was thoroughly reviewed during OV with patient and and all questions answered F/U in 3-6 months in ENDO LANTUS Inject 30 units once daily LISPRO Inject 4 units with breakfast plus SS#1 Inject 4 units with lunch plus SS#1 Inject 6 units with dinner plus SS#1 Sliding Scale Insulin Dosing Sliding Scale 1 (1 unit for every 50 mg/dL > 150 mg/dL) SUPPLEMENTAL INSULIN If Blood Glucose (mg/dL) is < 150 Give 0 units 151-200 Give 1 unit 201-250 Give 2 units 251-300 Give 3 units 301-350 Give 4 units 351-400 Give 5 units >400 Give 6 units, call physician if blood glucose does not improve. Recommended diet: Low carbohydrate and Low saturated fat, low simple sugar, high fiber diet Exercise minimally 150 minutes per week, increase as tolerated. Adequate hydration - 1/2 body wgt in oz of water daily, unless fluid restriction applies. I instructed the patient to monitor blood sugars 4 times per day If blood sugars are persistently high or low, to call our office. Patient to continue to follow up with her PCP and with other consultants regarding her other medical problems. Plan: COMPREHENSIVE METABOLIC PANEL, LIPID PANEL, NONFASTING, ALBUMIN/CREATININE RATIO, URINE, HEMOGLOBIN A1C Renetta Mcgee CNP documented in this encounterWadsworth-[facility]05-20-2024 Telephone encounter Note * Telephone Encounter - Patricia Mora LPN - 12/05/2023 12:12 PM EDT PATIENT NOTIFIED OF SAME. [facility]05-[facility] Miscellaneous Notes* Telephone Encounter - Patricia Mora LPN - 12/05/2023 12:12 PM EDT PATIENT NOTIFIED OF SAME. * Telephone Encounter - Octavio Reza MD - 12/02/2023 7:06 PM EDT Below noted Agree with nurse reminding patient to take the long-acting med as prescribed--does not need to dropdose of long-acting when takes SSI to cover high sugars. When she lowers the dose, that leads to higher sugars the next day then will have to work to get sugars back down the following day. Noted pushing fluids to stay hydrated. Aside from usual recommendations to avoid too much processed carbs and get protein in with every meal or snack to prevent blood sugars from spiking, nothing else to add prior to appointment with endocrinology. * Telephone Encounter - Pattie Giles RN - 12/02/2023 10:32 AM EDT Patient calls to review BS results. She has concerns for BS elevation mostly in the afternoon and wondering if provider has any recommendations prior to Endocrinology appointment on 12/07/2023. BS readings today: 520 am 228 4 units lispro BKFST scrambled eggs and cups of coffee 750 am 139 10 am 176 Yesterday 12/03/2023 455 am 241 4 units lispro 655 am 145 8 am 131 9 am 128 11 am 222 4 units lispro Lunch Vegetables with Chicken and Water 1245 pm 233 235 pm 317 415 pm 249 6 units lispro 530 pm 197 650 pm 207 8 pm 239 2 units lispro 950 pm 234 Patient reports that she is pushing lots of water throughout the day and has concerns that BS is increasing mid afternoon. Patient was to ER 11/28/23 she reports for elevated blood sugars and she reports they told her to continue medications as ordered. She is taking Lantus 26 units at bedtime but reports last night she only took 20 units because she didn't want to drop her blood sugar too much with taking 2 units of lispro. Reviewed the action of short vs long insulin and the importance of taking medication as prescribed. Please review and advise, Pattie Giles RN documented in this encounterWadsworth-[facility]05-20-2024 Telephone encounter Note * Telephone Encounter - Patricia Mora LPN - 12/05/2023 12:08 PM EDT PATIENT NOTIFIED OF SAME. [facility]-20-[facility] Miscellaneous Notes* Telephone Encounter - Patricia Mora LPN - 12/05/2023 12:08 PM EDT PATIENT NOTIFIED OF SAME. * Telephone Encounter - Davon Wolfe APRN.CNP - 12/05/2023 12:01 PM EDT It would be alright to get her hair done if getting it done does not cause her to have symptoms such as dizziness, lightheadedness, vision changes, etc. * Telephone Encounter - Rakel Agosto LPN - 12/05/2023 9:06 AM EDT Pt calls to report she is to get carotid artery testing done at the hospital. Pt reports today she has a hair appointment and says when she leans her head back to get hair washed part of her neck rests on the wash bowl. Pt reports that is where the arteries are that she is getting US. Pt is asking if that could be harmful and if she should not get hair done today. Please review and advise. Rakel Agosto LPN documented in this encounterWadsworth-[facility]05-20-2024 Telephone encounter Note * Telephone Encounter - Davon Wolfe APRN.FABIO - 12/05/2023 12:01 PM EDT It would be alright to get her hair done if getting it done does not cause her to have symptoms such as dizziness, lightheadedness, vision changes, etc. [facility] Telephone encounter Note* Telephone Encounter - Rakel Agosto LPN - 12/05/2023 9:06 AM EDT Pt calls to report she is to get carotid artery testing done at the hospital. Pt reports today she has a hair appointment and says when she leans her head back to get hair washed part of her neck rests on the wash bowl. Pt reports that is where the arteries are that she is getting US. Pt is asking if that could be harmful and if she should not get hair done today. Please review and advise. Rakel Agosto LPN [facility]05-17-2024 Telephone encounter Note* Telephone Encounter - Octavio Reza MD - 12/02/2023 7:06 PM EDT Below noted Agree with nurse reminding patient to take the long-acting med as prescribed--does not need to dropdose of long-acting when takes SSI to cover high sugars. When she lowers the dose, that leads to higher sugars the next day then will have to work to get sugars back down the following day. Noted pushing fluids to stay hydrated. Aside from usual recommendations to avoid too much processed carbs and get protein in with every meal or snack to prevent blood sugars from spiking, nothing else to add prior to appointment with endocrinology. [facility]-17-[facility] Telephone encounter Note* Telephone Encounter - Pattie Giles RN - 12/02/2023 10:32 AM EDT Patient calls to review BS results. She has concerns for BS elevation mostly in the afternoon and wondering if provider has any recommendations prior to Endocrinology appointment on 12/07/2023. BS readings today: 520 am 228 4 units lispro BKFST scrambled eggs and cups of coffee 750 am 139 10 am 176 Yesterday 12/03/2023 455 am 241 4 units lispro 655 am 145 8 am 131 9 am 128 11 am 222 4 units lispro Lunch Vegetables with Chicken and Water 1245 pm 233 235 pm 317 415 pm 249 6 units lispro 530 pm 197 650 pm 207 8 pm 239 2 units lispro 950 pm 234 Patient reports that she is pushing lots of water throughout the day and has concerns that BS is increasing mid afternoon. Patient was to ER 11/28/23 she reports for elevated blood sugars and she reports they told her to continue medications as ordered. She is taking Lantus 26 units at bedtime but reports last night she only took 20 units because she didn't want to drop her blood sugar too much with taking 2 units of lispro. Reviewed the action of short vs long insulin and the importance of taking medication as prescribed. Please review and advise, Pattie Giles RN [facility]05-06-2024 Telephone encounter Note* Telephone Encounter - Patricia Mora LPN - 11/21/2023 2:47 PM EDT PATIENT NOTIFIED OF SAME. [facility]05-06-20[facility] Miscellaneous Notes* Telephone Encounter - Patricia Mora LPN - 11/21/2023 2:47 PM EDT PATIENT NOTIFIED OF SAME. * Telephone Encounter - Davon Wolfe APRN.CNP - 11/21/2023 2:17 PM EDT Okay to continue with current dose of vitamin D, script sent. Only if her am blood sugars are low should she hold the lantus. If her am fasting blood sugar is 100 or below then she can take half her dose of lantus that night but otherwise it's okay to take this and she can eat a carb and protein snack when she takes the lantus if she would like but this is not a fast acting medication so it will not drop her sugars like the novolog does. * Telephone Encounter - Patricia Mora LPN - 11/21/2023 1:35 PM EDT Spoke with patient and she is willing to stop the NPH. Her sliding scale starts at 150-199 with taking 2 units of Novolog. Will adjust Lantus to 26 units at bedtime. Patient questions at night if blood sugar is below what reading should she hold the lantus? If low and she eats a carb and protein should she take the Lantus? She is also needing a refill on the vitamin d but unsure if should continue with weekly dose of daily dose? * Telephone Encounter - Davon Wolfe APRN.CNP - 11/21/2023 1:07 PM EDT Please see if she would be willing to stop the NPH insulin and use the sliding scale as ordered forthe novolog. We could also further adjust the lantus. I think she would tolerate doing 26 units of the Lantus if she is going without the NPH insulin. * Telephone Encounter - Parris Eckert RN - 11/21/2023 12:45 PM EDT Pt called and is notified of providers message and instructions. Pt voices understanding. Pt statesit's the insulin NPH or Novolin-N not the Novolog that has been causing her the issues. She states that she opened a new bottle and it looks different than it normally does, she states there is a blue streak on the box and bottle. I told her it could be from a different woven label designer, she said the pharmacy told her the same thing. She said they also told her that they could use different preservatives. Tuesday11/19/23 at 530 BS 245 8u Novolin-N 2u Novolog Pt ate breakfast. 830 am BS 127 Lunch 1100 am BS 146, did not take any insulin 1230pm BS 184 300 pm BS 219 Dinner 615 pm BS 230 2u Novolog 820 pm BS 256 2u Novolog 930 pm BS 178 20 units Lantus Tuesday11/20/23 at 530 BS 241 8u Novolin-N 3u Novolog Pt ate breakfast. 840 am BS 296 1000 am BS 271 Lunch 1120 am BS 282 2u Novolog 110 pm BS 229 415 pm BS 266 Dinner 530 pm BS 296 3u Novolog 700 pm BS 242 800 pm BS 181 840 pm BS178 24 units Lantus Tuesday11/23/23 252 am 125, did not take insulin or eat breakfast due to not being hungry and having an early eye doctor appointment. 625 am 127 725 am 109 840 am 162 1110 am 122, did not take insulin 1245 pm BS 312, ate a bowl of soup 3u Novolog (it states for Pt to take 6 units, but she states she hasn't taken that much since she was in the hospital because it will drop her too low. She takes lower dose and drinks plenty of water.) I told Pt she could take with provider about switching her to a lower dose sliding scale. Please call and advise. Parris Eckert RN * Telephone Encounter - Davon Wolfe APRN.CNP - 11/21/2023 10:26 AM EDT Please see how often she is taking the Novolog and how many units when using it? We could stop the novolog and adjust the other insulins if she is not using much of it. * Telephone Encounter - Cesar Brush LPN - 11/21/2023 8:34 AM EDT Patient calling said every time she takes the Novolog insulin 30-45-60 minutes later she get reaction of rapid heart beat, chest pain, hot feeling in her chest area. She said has happened 5 to 6 times now. She did not take any Novolog insulin this morning. Patient said her blood sugar was 109 today. She has eye appt at [address] [facility], will not be able to reached. She has been taking Lantus 24 units at bedtime. Patient is asking what should she be taking in place of the Novolog? She said she is so nervous about this, has got diarrhea worrying about it. Please advise documented in this encounterWadsworth-Rittman [facility] Tele[facility] encounter Note * Telephone Encounter - Davon Wolfe APRN.CNP - 11/21/2023 2:17 PM EDT Okay to continue with current dose of vitamin D, script sent. Only if her am blood sugars are low should she hold the lantus. If her am fasting blood sugar is 100 or below then she can take half her dose of lantus that night but otherwise it's okay to take this and she can eat a carb and protein snack when she takes the lantus if she would like but this is not a fast acting medication so it will not drop her sugars like the novolog does. [facility]05-06-2024 Telephone encounter Note* Telephone Encounter - Patricia Mora LPN - 11/21/2023 1:35 PM EDT Spoke with patient and she is willing to stop the NPH. Her sliding scale starts at 150-199 with taking 2 units of Novolog. Will adjust Lantus to 26 units at bedtime. Patient questions at night if blood sugar is below what reading should she hold the lantus? If low and she eats a carb and protein should she take the Lantus? She is also needing a refill on the vitamin d but unsure if should continue with weekly dose of daily dose? [facility]05-06-2024 Telephone encounter Note* Telephone Encounter - Davon Wolfe APRN.CNP - 11/21/2023 1:07 PM EDT Please see if she would be willing to stop the NPH insulin and use the sliding scale as ordered forthe novolog. We could also further adjust the lantus. I think she would tolerate doing 26 units of the Lantus if she is going without the NPH insulin. [facility]05-06-2024 Telephone encounter Note* Telephone Encounter - Parris Eckert RN - 11/21/2023 12:45 PM EDT Pt called and is notified of providers message and instructions. Pt voices understanding. Pt statesit's the insulin NPH or Novolin-N not the Novolog that has been causing her the issues. She states that she opened a new bottle and it looks different than it normally does, she states there is a blue streak on the box and bottle. I told her it could be from a different woven label designer, she said the pharmacy told her the same thing. She said they also told her that they could use different preservatives. Tuesday11/19/23 at 530 BS 245 8u Novolin-N 2u Novolog Pt ate breakfast. 830 am BS 127 Lunch 1100 am BS 146, did not take any insulin 1230pm BS 184 300 pm BS 219 Dinner 615 pm BS 230 2u Novolog 820 pm BS 256 2u Novolog 930 pm BS 178 20 units Lantus Tuesday11/20/23 at 530 BS 241 8u Novolin-N 3u Novolog Pt ate breakfast. 840 am BS 296 1000 am BS 271 Lunch 1120 am BS 282 2u Novolog 110 pm BS 229 415 pm BS 266 Dinner 530 pm BS 296 3u Novolog 700 pm BS 242 800 pm BS 181 840 pm BS178 24 units Lantus Tuesday11/23/23 252 am 125, did not take insulin or eat breakfast due to not being hungry and having an early eye doctor appointment. 625 am 127 725 am 109 840 am 162 1110 am 122, did not take insulin 1245 pm BS 312, ate a bowl of soup 3u Novolog (it states for Pt to take 6 units, but she states she hasn't taken that much since she was in the hospital because it will drop her too low. She takes lower dose and drinks plenty of water.) I told Pt she could take with provider about switching her to a lower dose sliding scale. Please call and advise. Parris Eckert RN [facility]05-06-2024 Telephone encounter Note* Telephone Encounter - Davon Wolfe APRN.CNP - 11/21/2023 10:26 AM EDT Please see how often she is taking the Novolog and how many units when using it? We could stop the novolog and adjust the other insulins if she is not using much of it. [facility]05-06-2024 Telephone encounter Note* Telephone Encounter - Cesar Brush LPN - 11/21/2023 8:34 AM EDT Patient calling said every time she takes the Novolog insulin 30-45-60 minutes later she get reaction of rapid heart beat, chest pain, hot feeling in her chest area. She said has happened 5 to 6 times now. She did not take any Novolog insulin this morning. Patient said her blood sugar was 109 today. She has eye appt at [address] [facility], will not be able to reached. She has been taking Lantus 24 units at bedtime. Patient is asking what should she be taking in place of the Novolog? She said she is so nervous about this, has got diarrhea worrying about it. Please advise [facility]04-26-2024 Telephone encounter Note* Telephone Encounter - Patricia Mora LPN - 11/11/2023 2:24 PM EDT PATIENT NOTIFIED OF SAME and expressed understanding. [facility]04-26-2024 Miscellaneous Notes* Telephone Encounter - Patricia Mora LPN - 11/11/2023 2:24 PM EDT PATIENT NOTIFIED OF SAME and expressed understanding. * Telephone Encounter - Davon Wolfe APRN.CNP - 11/11/2023 1:17 PM EDT Okay, understood, she could increase the Lantus then to 26 units but reduce the lispro to 2 units and see if helpful with the symptoms. Please have her call next week with an update after a few days of doing that. * Telephone Encounter - Patricia Mora LPN - 11/11/2023 12:51 PM EDT Spoke with patient and she states that she is taking Lantus 24 units at bedtime. She had only taken20 units once. Feels this is working just fine. She suspects that the Lispro 3 units is making her sick starts with a Hot flash, nausea, light headiness. Lasts about 30 minutes. Then feels dizzy, weak. * Telephone Encounter - Davon Wolfe APRN.CNP - 11/11/2023 10:38 AM EDT Please return her call and let her know that based on the am sugars we could adjust the Lantus to 22 units as this will help with the am readings to get them closer to 120. * Telephone Encounter - Gloria Rand RN - 11/11/2023 8:57 AM EDT Pt calling in with BS for Davon Wolfe. During conversation, pt agreed to see endocrinology. Appt set up for 12/06 at 10 with Renetta Mcgee NP. Wed 11/08: 540 am 129 took 20 units Novolin N ate breakfast 10 am 132 1225 pm 104 ate lunch 1255 pm 125 410 pm 98 ate supper 450 pm 171 530 pm 209 took 3 units Lispro 710 pm 183 850 pm 135 PB crackers 930 pm 173 bedtime took 20 units Lantus Thurs 11/09: 5 am 228 took 20 units Novolin N ate breakfast 715 am 165 820 am 88 ate yogurt with sugar 900 am 99 thinks ate more yogurt 1145 am 109 ate lunch 105 pm 93 ate something 2 pm 154 315 pm 171 5 pm 195 took 1 unit Lispro ate supper 640 pm 199 9 pm 190 bedtime took 20 units Lantus Fri (today) 11/10: 0520 am 188 6 am 180 took 20 units Novolin N ate breakfast 7 am 183 820 am 151 Per Med list Novolog ordered-pt has Lispro which pharmacy gave as generic for the Novolog. Pt to take 3-10 units SQ 3 times a day before meals as directed. (see above for when she took it) Her Novolin N is the NPH. take 15-20 units with breakfast. Pt has been taking 20 units with breakfast daily Insulin Glargine is her Lantus which on med list pt was taking 24 units at bedtime. Pt decreased onher own to 20 units as she was worried she would drop too low during the night. Please review and advise patient if she needs to change anything. documented in this encounterW[facility]04[facility] Telephone encounter Note * Telephone Encounter - Davon Wolfe APRN.CNP - 11/11/2023 1:17 PM EDT Okay, understood, she could increase the Lantus then to 26 units but reduce the lispro to 2 units and see if helpful with the symptoms. Please have her call next week with an update after a few days of doing that. [facility]04-26-2024 Telephone encounter Note* Telephone Encounter - Patricia Mora LPN - 11/11/2023 12:51 PM EDT Spoke with patient and she states that she is taking Lantus 24 units at bedtime. She had only taken20 units once. Feels this is working just fine. She suspects that the Lispro 3 units is making her sick starts with a Hot flash, nausea, light headiness. Lasts about 30 minutes. Then feels dizzy, weak. [facility]04-26-2024 Telephone encounter Note* Telephone Encounter - Davon Wolfe APRN.CNP - 11/11/2023 10:38 AM EDT Please return her call and let her know that based on the am sugars we could adjust the Lantus to 22 units as this will help with the am readings to get them closer to 120. [facility]04-26-2024 Telephone encounter Note* Telephone Encounter - Gloria Rand RN - 11/11/2023 8:57 AM EDT Pt calling in with BS for Davon Wolfe. During conversation, pt agreed to see endocrinology. Appt set up for 12/06 at 10 with Renetta Mcgee NP. 11/08: 540 am 129 took 20 units Novolin N ate breakfast 10 am 132 1225 pm 104 ate lunch 1255 pm 125 410 pm 98 ate supper 450 pm 171 530 pm 209 took 3 units Lispro 710 pm 183 850 pm 135 PB crackers 930 pm 173 bedtime took 20 units Lantus Thurs 11/09: 5 am 228 took 20 units Novolin N ate breakfast 715 am 165 820 am 88 ate yogurt with sugar 900 am 99 thinks ate more yogurt 1145 am 109 ate lunch 105 pm 93 ate something 2 pm 154 315 pm 171 5 pm 195 took 1 unit Lispro ate supper 640 pm 199 9 pm 190 bedtime took 20 units Lantus Fri (today) 11/10: 0520 am 188 6 am 180 took 20 units Novolin N ate breakfast 7 am 183 820 am 151 Per Med list Novolog ordered-pt has Lispro which pharmacy gave as generic for the Novolog. Pt to take 3-10 units SQ 3 times a day before meals as directed. (see above for when she took it) Her Novolin N is the NPH. take 15-20 units with breakfast. Pt has been taking 20 units with breakfast daily Insulin Glargine is her Lantus which on med list pt was taking 24 units at bedtime. Pt decreased onher own to 20 units as she was worried she would drop too low during the night. Please review and advise patient if she needs to change anything. [facility]04-26-2024 Telephone encounter Note* Telephone Encounter - Davon Wolfe APRN.CNP - 11/11/2023 8:18 AM EDT Seen 11/08 [facility]04-26-2024 Miscellaneous Notes* Telephone Encounter - Davon Wolfe APRN.CNP - 11/11/2023 8:18 AM EDT Seen 11/08 * Telephone Encounter - Madeline Quintana LPN - 11/04/2023 4:23 PM EDT Images from the original note were not included. Patient dropped off documented in this encounterWad[facility]04-[facility] Telephone encounter Note * Telephone Encounter - Lydia Grande APRN.CNS - 11/10/2023 7:13 AM EDT Noted [facility]04-25-2024 Miscellaneous Notes* Telephone Encounter - Lydia Grande APRN.CNS - 11/10/2023 7:13 AM EDT Noted * Telephone Encounter - Patricia Mora LPN - 11/08/2023 4:30 PM EDT Spoke with patient and she states that her blood sugars are doing good today. ER dr told her to take it before she eats and states she is following a sliding scale. She got concerned and started thinking about possible interactions and so was taking less of what is prescribed and ended up with high readings. Patient would like to hold off with referral to endocrinology. Is working on a better low card diet. Will call back with updated readings in next 2-3 days.. * Telephone Encounter - Lydia Grande APRN.CNS - 11/08/2023 4:12 PM EDT See scanned document, no changes made to medications at home. She was advised to follow her sliding scale insulin orders and make an appointment with endocrinology. Did she want to make an appointment with endocrinology and if so does she need a referral? How her blood sugars today? * Telephone Encounter - Rakel Agosto LPN - 11/08/2023 11:43 AM EDT Pt calls to report she ended up going to ER yesterday and got sugar under control. Rakel Agosto LPN * Telephone Encounter - Madeline Quintana LPN - 11/08/2023 8:56 AM EDT Records printed for provider to review. Madeline Quintana LPN * Telephone Encounter - Anika Garber LPN - 11/07/2023 3:44 PM EDT left message for patient to call office back and speak with triage nurse. Anika Garber LPN * Telephone Encounter - Lydia Grande APRN.MADELIN - 11/07/2023 3:33 PM EDT What she is looking for recommendation for? Can we get ER records for review? Her blood sugar was above normal and she drank a bottle of Gatorade and 12 ounces of juice which caused her blood sugar to increase. If she is eating normally now recommend she resume her usual treatments for diabetes. Recommend avoid excess intake of carbohydrates. * Telephone Encounter - Rochelle Hoyt RN - 11/07/2023 2:27 PM EDT Patient calling to say she went to the ER last night and did not take her bedtime Insulin until 0100 AM at which point she says she only took 12 Units Lantus Insulin. This morning at 0600 she checked her blood sugar = 125 and she took 15 Units of NPH Insulin then ate breakfast. At 0900 her blood sugar was 240 and she took Lispro 3.5 Units. At 1200 she checked her blood sugar because she felt funny. Her blood sugar was 198 but she was shaking and felt like her blood sugar was low so she drank 12 ounces of orange juice and a bottle of Gatorade. Her blood sugars are now running in the 350's. She says she feels normal at this time.. She is asking for PCP recommendation. Rochelle Hoyt, RN documented in this encounterWadsworth-[facility]04-24-[facility]24 Instructions* Patient Instructions* Davon Wolfe APRN.CNP - 11/09/2023 3:28 PM EDT The pen is the long acting insulin, this impacts the morning fasting sugar the most. The Novolog is the very quick, short acting insulin. You need to eat with in 30 minuets of that one. documented in this encounterWadsworth-[facility]04-24-[facility] History of Present illness Narrative* Davon Wolfe APRN.CNP - 11/09/2023 3:08 PM EDT SUBJECTIVE Attila Kidd is a 78 year old female here today for a check up on her medical problems. Chief Complaint Patient presents with: Diabetes: having fluctuating blood sugars and experiencing symptoms HPI Attila Kidd is a 78 year old female. She is an established patient of Octavio Reza MD. Here today for concerns of having issues with her sugars. She has been in the ER at [facility] a few times in the last few days for concerns of her sugars being high. She is currently taking Lantus, NPH, and Novolog on a sliding scale. Sugars today are better but she has questions about which insulin to take when and how. Her medications were reviewed today and her list is now up to date. Medications Current Outpatient Medications Medication Sig budesonide-formoterol (SYMBICORT) 160-4.5 mcg/actuation inhaler Inhale 2 Puffs as instructed two times a day. aspirin, enteric coated (ASPIRIN, ENTERIC COATED) 81 mg EC tablet Take 1 tablet by mouth two times a day. zolpidem (AMBIEN) 5 mg tablet Take 0.5-1 tablets by mouth at bedtime as needed for up to 90 days. ramipril (ALTACE) 10 mg capsule Take 1 capsule by mouth two times a day. metoprolol tartrate, short acting, (LOPRESSOR) 50 mg tablet Take 1/2 tablet by mouth twice a day furosemide (LASIX) 20 mg tablet Take 1 tablet by mouth once daily as needed. (Patient taking differently: Take 10 mg by mouth once daily as needed.) amLODIPine (NORVASC) 10 mg tablet Take 0.5 tablets by mouth once daily. mometasone (ELOCON) 0.1 % cream Apply to affected area once daily as needed (for scalp psoriasis). For 14 days. Treat for recurrences. Apply at bedtime then wash off in the morning cholecalciferol, Vitamin D3, (VITAMIN D3) 1,250 mcg (50,000 unit) cap capsule Take 1 capsule by mouth one time a week. albuterol HFA (PROVENTIL HFA, VENTOLIN HFA) 90 mcg/actuation inhaler Inhale 2 Puffs as instructed four times daily as needed. FOR WHEEZING AND SHORTNESS OF BREATH. ibuprofen 200 mg tablet Take 1-2 tablets by mouth four times daily as needed (Take with food.). --currently only needing 1 pill twice daily to help with cough blood sugar diagnostic (BLOOD GLUCOSE TEST) test strip Test blood sugar(s) 8 times daily--MedicallyNecessary for labile blood sugars (highs and lows). Dx: Other DM Code E10.8, E11.610 Insulin: Yes insulin aspart U-100 (NOVOLOG U-100 INSULIN ASPART) 100 unit/mL Inject 3-10 Units subcutaneously three times a day before meals. As directed insulin NPH injection Inject 15-20 Units subcutaneously daily with breakfast. Dispense 6 vials (3 months supply) insulin glargine 100 unit/mL (3 mL) Inject 27 Units subcutaneously daily at bedtime. Give Lantus, not Basaglar per patient preference (Patient taking differently: Inject 24 Units subcutaneously dailyat bedtime. Give Lantus, not Basaglar per patient preference) flash glucose sensor (FREESTYLE RAISSA 2 SENSOR) kit Apply new sensor every fourteen (14) days to upper arm. L. acidophilus/Bifid. animalis (DAILY PROBIOTIC ORAL) Take 1 capsule by mouth once daily. (Patient not taking: Reported on 11/09/2023) Insulin [place], Disposable, (BD ULTRA-FINE FADY PEN NEEDLE) 32 gauge x 5/32 Use one needle for each dose. 1-2 /day. COMPOUNDED PRESCRIPTION Bi-PAP nose pads. (G47.33) THAIS treated with BiPAP No current facility-administered medications for this visit. [...] [Albuterol* GI Upset, Vomiting ACTIVE PROBLEM LIST Nocturnal Hypoxemia - 09/22/2023 Major Depressive Disorder, Recurrent, in Full Remission ([facility]) - 06/25/2023 Palpitations - 05/16/2023 Chronic Obstructive Asthma With Exacerbation ([facility]) ([facility]) - 11/12/2022 Acute Respiratory Failure With Hypoxia ([facility]) - 11/12/2022 Paroxysmal Svt (Supraventricular Tachycardia) ([facility]) - 11/12/2022 Adverse Reaction to Hmg-Coa Reductase Inhibitor - 06/07/2022 Comment: Historical: see allergies Stasis Edema of Both Lower Extremities - 04/27/2018 Morbid Obesity With Bmi of 45.0-49.9, Adult ([facility]) - 04/18/2017 Asthma - 05/06/2014 Vitamin D Deficiency - 08/21/2010 Charcot Foot Due to Diabetes Mellitus ([facility]) Debility - 09/30/2009 Rosacea - 09/06/2007 Insomnia, Unspecified - 06/01/2007 Type I Diabetes Mellitus With Manifestations ([facility]) - 09/15/2005 Essential Hypertension - 09/15/2005 [...] Types: Cigarettes Quit date: 10/21/1998 Years since quittin.0 Smokeless tobacco: Never Vaping Use Vaping Use: Never used Substance Use Topics Alcohol use: Yes Comment: Rarely Drug use: No Review of Systems Respiratory: Negative. Cardiovascular: Negative. OBJECTIVE BP 132/70 Pulse 63 Wt 331 lb (150.1kg) SpO2 98% Physical Exam Vitals and nursing note reviewed. Constitutional: General: She is awake. She is not in acute distress. Appearance: Normal appearance. She is well-developed and well-groomed. She is not ill-appearing, toxic-appearing or diaphoretic. [...] respiratory distress. Breath sounds: Normal breath sounds. Musculoskeletal: Cervical back: Neck supple. Skin: General: Skin is warm and [...] memory normal. Judgment: Judgment normal. ASSESSMENT/PLAN: 1. 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) - ICD9: 250.91, ICD10: E10.8 (primary diagnosis) Sugars today stable and improved, discussed insulin in depth and also diet. She will call Tuesday with an update. 2. Encounter for medication management - ICD9: V58.69, ICD10: Z79.899 Portions of this note have been entered by ancillary staff. I have reviewed and when necessary edited, so that they are an adequate record of my encounter with this patient Please note that parts of this document were created using voice recognition software and therefore may contain grammatical errors. Patient verbalizes understanding of instructions from today's visit and in agreement with treatmentplan. Questions answered. Agrees to call the office if questions, concerns of issues with acute symptoms not improving or if they worsen. See diagnoses and orders for additional plan(s). Allergies and medications were reviewed, list was updated, and refills given if needed. Past medical, surgical, social, and family history reviewed and updated as appropriate. Encouraged proper diet & exercise as well as compliance with taking medications. Age- appropriate health preventative measures were discussed. Return if symptoms worsen or fail to improve, for Keep next scheduled appointment.. Davon Wolfe APRN-FABIO documented in this encounterWadsworth-[facility]04-24-[facility] Telephone encounter Note * Telephone Encounter - Rochelle Hoyt RN - 11/09/2023 1:55 PM EDT Patient calling to ask if someone can review her Insulin medications with her? She says she feels like she is getting confused about what she is supposed to take when. She will bring medications and glucose meter with her to appointment. Scheduled today with Davon Wolfe per patient's request. Rochelle Hoyt RN [facility]04-24-2024 Miscellaneous Notes* Telephone Encounter - Rochelle Hoyt RN - 11/09/2023 1:55 PM EDT Patient calling to ask if someone can review her Insulin medications with her? She says she feels like she is getting confused about what she is supposed to take when. She will bring medications and glucose meter with her to appointment. Scheduled today with Davon Wolfe per patient's request. Rochelle Hoyt RN documented in this encounterWadsworth-[facility]04-23-2024 Telephone encounter Note * Telephone Encounter - Patricia Mora LPN - 11/08/2023 4:30 PM EDT Spoke with patient and she states that her blood sugars are doing good today. ER dr told her to take it before she eats and states she is following a sliding scale. She got concerned and started thinking about possible interactions and so was taking less of what is prescribed and ended up with high readings. Patient would like to hold off with referral to endocrinology. Is working on a better low card diet. Will call back with updated readings in next 2-3 days.. [facility]04-23-2024 Telephone encounter Note* Telephone Encounter - Lydia Grande APRN.[employer] - 11/08/2023 4:12 PM EDT See scanned document, no changes made to medications at home. She was advised to follow her sliding scale insulin orders and make an appointment with endocrinology. Did she want to make an appointment with endocrinology and if so does she need a referral? How her blood sugars today? [facility]04-23-2024 Telephone encounter Note* Telephone Encounter - Rakel Agosto LPN - 11/08/2023 11:43 AM EDT Pt calls to report she ended up going to ER yesterday and got sugar under control. Rakel Agosto LPN [facility]04-23-2024 Telephone encounter Note* Telephone Encounter - Madeline Quintana LPN - 11/08/2023 8:56 AM EDT Records printed for provider to review. Madeline Quintana LPN [facility]04-22-2024 Telephone encounter Note* Telephone Encounter - Anika Garber LPN - 11/07/2023 3:44 PM EDT left message for patient to call office back and speak with triage nurse. Anika Garber LPN [facility] Work Phone: 1(228) 940-399304-22-2024 Telephone encounter Note* Telephone Encounter - Lydia Grande APRN.MADELIN - 11/07/2023 3:33 PM EDT What she is looking for recommendation for? Can we get ER records for review? Her blood sugar was above normal and she drank a bottle of Gatorade and 12 ounces of juice which caused her blood sugar to increase. If she is eating normally now recommend she resume her usual treatments for diabetes. Recommend avoid excess intake of carbohydrates. [facility]04-22-2024 Telephone encounter Note* Telephone Encounter - Rochelle Hoyt RN - 11/07/2023 2:27 PM EDT Patient calling to say she went to the ER last night and did not take her bedtime Insulin until 0100 AM at which point she says she only took 12 Units Lantus Insulin. This morning at 0600 she checked her blood sugar = 125 and she took 15 Units of NPH Insulin then ate breakfast. At 0900 her blood sugar was 240 and she took Lispro 3.5 Units. At 1200 she checked her blood sugar because she felt funny. Her blood sugar was 198 but she was shaking and felt like her blood sugar was low so she drank 12 ounces of orange juice and a bottle of Gatorade. Her blood sugars are now running in the 350's. She says she feels normal at this time.. She is asking for PCP recommendation. Rochelle Hoyt RN [facility]04-19-2024 Telephone encounter Note* Telephone Encounter - Madeline Quintana LPN - 11/04/2023 4:23 PM EDT Images from the original note were not included. Patient dropped off [facility]04-15-2024 NoteHNO ID: [id number] Author: HEATHER DE ANDA RT(R) Service: ? Author Type: Technologist Type: Progress Notes Filed: 10/31/2023 12:57 Note Text: Radiology Service Progress Note PATIENT NAME: Attila Kidd DATE OF SERVICE: October 31, 2023 TIME: 12:57 PM PATIENT IDENTITY VERIFICATION COMPLETED USING TWO (2) IDENTIFIERS: Name and Date of confirmed by patient verbally. FALL SCREENING: Has the patient had 2 falls in the last year or 1 fall with injury or currently using an Ambulatory Assistive Device (Walker, Cane, Wheelchair, Crutches, etc.)? No PATIENT GENDER DATA: Female. status: : No status: NO. PATIENT RELEVANT IMPLANT DATA REVIEWED: Yes PATIENT PRESENTS WITH AN IMPLANTABLE OR ATTACHED RHEUMATOLOGIST: No RADIOLOGY DEPARTMENT: Ultrasound PERIPHERAL IV DATA: Not applicable SIGNED BY: Heather De Anda RDMS, T October 31, 2023 12:57 [facility]04-15-2024 Miscellaneous Notes* Telephone Encounter - Gabi Santiago LPN - 10/31/2023 2:25 PM EDT Patient notified.Gabi Santiago LPN * Telephone Encounter - Tamika Morris MD - 10/31/2023 1:57 PM EDT Ultrasound showed no blood clot in her leg. She may resume wearing her compression hose and leg brace. Follow up if swelling or pain worsens documented in this encounterWadsworth-[facility]04-15-[facility] History of Present illness Narrative* Heather De Anda RT(R) - 10/31/2023 1:00 PM EDT Radiology Service Progress Note PATIENT NAME: Attila Kidd DATE OF SERVICE: October 31, 2023 TIME: 12:57 PM PATIENT IDENTITY VERIFICATION COMPLETED USING TWO (2) IDENTIFIERS: Name and Date of confirmedby patient verbally. FALL SCREENING: Has the patient had 2 falls in the last year or 1 fall with injury or currently using an Ambulatory Assistive Device (Walker, Cane, Wheelchair, Crutches, etc.)? No PATIENT GENDER DATA: Female. status: : No status: NO. PATIENT RELEVANT IMPLANT DATA REVIEWED: Yes PATIENT PRESENTS WITH AN IMPLANTABLE OR ATTACHED RHEUMATOLOGIST: No RADIOLOGY DEPARTMENT: Ultrasound PERIPHERAL IV DATA: Not applicable SIGNED BY: Heather De Anda RDMS, RVT October 31, 2023 12:57 PM documented in this encounterWadsworth-[facility]04-15-2024 History of Present illness Narrative* Tamika Morris MD - 10/31/2023 8:24 AM EDT Patient presents with: concerened about right lower leg clot: X 1 day HPI: PMHx significant for left leg DVT in 2016 after right leg fracture. She noticed some prominence and tenderness of the medial right calf last night which seems bigger this morning. She is concerned she could have a DVT causing her symptoms. Denies redness, warmth, chest pain, shortness of breath, fever, or known injury. She has her baseline palpitations. She takes daily aspirin but no other anticoagulant. PAST MEDICAL HISTORY Diagnosis Date Adverse reaction [...] 10/12/2006 Rosacea 09/06/2007 Vitamin D deficiency 08/21/2010 MEDICATIONS: blood sugar diagnostic (BLOOD GLUCOSE TEST) test strip Test blood sugar(s) 8 times daily--MedicallyNecessary for labile blood sugars (highs and lows). Dx: Other DM Code E10.8, E11.610 Insulin: Yes budesonide-formoterol (SYMBICORT) 160-4.5 mcg/actuation inhaler Inhale 2 Puffs as instructed two times a day. aspirin, enteric coated (ASPIRIN, ENTERIC COATED) 81 [...] (Patient taking differently: Inject 24 Units subcutaneously dailyat bedtime. Give Lantus, not Basaglar per patient preference) metoprolol tartrate, short acting, (LOPRESSOR) 50 mg tablet Take 1/2 tablet by mouth twice a day furosemide (LASIX) 20 mg tablet Take 1 tablet by mouth once daily as needed. (Patient taking differently: Take 10 mg by mouth once daily as needed.) amLODIPine (NORVASC) 10 mg tablet Take 0.5 tablets by mouth once daily. mometasone (ELOCON) 0.1 % cream Apply to affected area once daily as needed (for scalp psoriasis). For 14 days. Treat for recurrences. Apply at bedtime then wash off in the morning flash glucose sensor (FREESTYLE RAISSA 2 SENSOR) kit Apply new sensor every fourteen (14) days to upper arm. L. acidophilus/Bifid. animalis (DAILY PROBIOTIC ORAL) Take 1 capsule by mouth once daily. cholecalciferol, Vitamin D3, (VITAMIN D3) 1,250 mcg (50,000 unit) cap capsule Take 1 capsule by mouth one time a week. Insulin [place], Disposable, (BD ULTRA-FINE FADY PEN NEEDLE) 32 [...] pill twice daily to help with cough ALLERGIES: ALLERGIES Allergen Reactions Escitalopram Intolerance Fatigued after [...] Upset Nausea Ventolin [Albuterol* GI Upset, Vomiting VITALS: BP 142/82 Pulse (!) 59 Temp 36.3 C (97.3 F) (Tympanic) Resp 18 Wt (!) 156 kg (344 lb) SpO2 96% BMI 50.80 kg/m Last 4 Encounter Wt Readings: Date: Wt: 10/31/2023 156 kg (344 lb) 09/22/2023 155.1 kg (342 lb) 09/01/2023 156.5 kg (345 lb) 06/23/2023 154.2 kg (340 lb) PHYSICAL EXAM: GEN: pleasant, no acute distress, alert, sitting in wheelchair, accompanied by her HEENT: PERRL, EOMI, MMM NECK: supple, HEART: regular rate, regular rhythm with respiratory modulation, no murmurs LUNGS: clear to auscultation, no wheezes or crackles, no increased WOB EXT: bilateral lymphedema and AFO braces. No erythema, edema, ecchymosis, or deformity. Soft tissuetenderness medial mid right calf at the upper border of the AFO. No palpable calf cords or popliteal tenderness. ASSESSMENT/PLAN: 1. Pain and swelling of right lower leg - ICD9: 729.5, 729.81, ICD10: M79.661, M79.89 - US DVT LOWER RIGHT - will schedule today to rule out DVT. Will need to start anticoagulation if clot is present. Had CMP and CBC in August (more recently at [facility] ED). Tamika Morris MD documented in this encounterWadsworth-[facility]04-12-2024 Discharge summary Author Tierney Francis [facility] October 28, 2023 9:20pm Note Date/Time October 28, 2023 7:1 6pm [facility] Medical Records Department [address] [place] [address] Emergency Department Summary 10/28/23 MR#: [id number] Acct: [id number] Name: ATTILA KIDD Rep #:[id number] : 1945 78 From: Tierney Francis MD PCP: Dr. Octavio Reza MD Status:RE G ER Location: ED HPI History of Present Illness Chief Complaint: Hyperglycemia Informant: patient Narrative Narrative: Patient presents secondary to high blood sugars today. Normally her blood sugars run in the 100 to mid 200 range. Today she is been up in the 300s. She did take 5 units of Humalog prior to arrival when her blood sugar was 356. She states that she will get intermittent palpitations when her blood sugars are high. [facility] Medical History Abnormal EKG Asthma Bimalleolar ankle fracture Charcot's joint of left foot Diabetes mellitus, type II Essential hypertension GERD (gastroesophageal reflux disease) History of DVT (deep vein thrombosis) Hyperglycemia due to type 2 diabetes mellitus Hyperlipidemia Hypertension THAIS (obstructive sleep apnea) Palpitations Paroxysmal SVT (supraventricular tachycardia) Premature atrial contractions Premature ventricular contraction Sinus bradycardia Home Medications aspirin 81 mg tablet,delayed release 81 mg PO DAILY heart health 11/24/17 [History Last Taken 01/19/19 16:00] ramipril 10 mg capsule 10 mg PO BID HEART 01/19/19 [History Last Taken 01/19/19 21:00] cholecalciferol (vitamin D3) 1,250 mcg (50,000 unit) capsule 1,250 mcg PO QWEEK SUPPLEMENT 12/03/19 [History Last Taken Unknown] furosemide 20 mg tablet 20 mg PO DAILY PRN water pill 01/22/21 [History Last Taken Unknown] budesonide-formoterol HFA 160 mcg-4.5 mcg/actuation aerosol inhaler 2 puff inhalation BID ASTHMA 12/21/21 [History Last Taken Unknown] zolpidem 5 mg tablet 2.5 mg PO QHS PRN Insomnia 02/11/22 [History Last Taken Unknown] insulin lispro 100 unit/mL subcutaneous solution 6 unit subcut TIDCM dm 06/22/22[History Last Taken Unknown] omeprazole magnesium 20 mg tablet,delayed release (Prilosec OTC) 20 mg PO DAILY GERD 06/22/22 [History Last Taken Unknown] albuterol sulfate 90 mcg/actuation aerosol inhaler (Ventolin HFA) 2 puff inhalation 4XD PRN sob #8.5 grams 07/14/22 [Rx Last Taken Unknown] metoprolol tartrate 25 mg tablet 25 mg PO BID BLOOD PRESSURE 07/17/22 [History Last Taken Unknown] acetaminophen 325 mg tablet (Tylenol) 650 mg (2 x 325 mg) PO Q6H PRN PRN Pain 1- 10 Or Fever >100.7 #0 tabs 08/02/22 [Rx Last Taken Unknown] insulin glargine-yfgn 100 unit/mL (3 mL) subcutaneous pen 24 unit (0.24 mL) subcut BID #15 mL 08/02/22 [Rx Last Taken Unknown] insulin lispro 100 unit/mL subcutaneous pen (Humalog KwikPen (U-100) Insulin) See Protocol subcut ACHS #0 mL 08/02/22 [Rx Last Taken Unknown] amlodipine 10 mg tablet 10 mg PO DAILY 10/01/23 [History Last Taken Unknown] metoprolol tartrate 50 mg tablet 50 mg PO Q12H heart rate, BP 10/01/23 [History Last Taken Unknown] Allergy/AdvReac Type Severity Reaction Status Date / Time hydromorphone Allergy Severe Anaphylaxis Verified 10/28/23 18:51 tramadol Allergy Severe Anaphylaxis Verified 10/28/23 18:51 amiodarone Allergy Intermediate Swelling Verified 10/28/23 18:51 Marienthal And Derivatives Allergy Intermediate Hives Verified 10/28/23 18:51 morphine Allergy Intermediate confusion Verified 10/28/23 18:51 moxifloxacin Allergy Intermediate Shortness Verified 10/28/23 18:51 of breath nabumetone Allergy Intermediate damaged Verified 10/28/23 18:51 kidney penicillin G Allergy Intermediate TURNS BLUE Verified 10/28/23 18:51 propoxyphene Allergy Intermediate PT UNSURE Verified 10/28/23 18:51 OF REACTION amlodipine Allergy Mild Abd Verified 10/28/23 18:51 cramps/diarrhea desloratadine Allergy Mild headache Verified 10/28/23 18:51 glutamine Allergy Mild Itching Verified 10/28/23 18:51 [From Airborne (ascorbate sodium)] herbal complex no.124 Allergy Mild Itching Verified 10/28/23 18:51 [From Airborne (ascorbate sodium)] hydrocodone [From Edon] Allergy Mild dystonia Verified 10/28/23 18:51 lysine HCl Allergy Mild Itching Verified 10/28/23 18:51 [From Airborne (ascorbate sodium)] multivitamin with minerals Allergy Mild Itching Verified 10/28/23 18:51 [From Airborne (ascorbate sodium)] pravastatin Allergy Unknown unknown Verified 10/28/23 18:51 rosuvastatin [From Crestor] Allergy Unknown myalgias Verified 10/28/23 18:51 simvastatin Allergy Unknown unknown Verified 10/28/23 18:51 escitalopram Allergy Other Verified 10/28/23 18:51 hydrochlorothiazide Allergy Other Verified 10/28/23 18:51 Ywoltdi-YKB-NeF Reductase AdvReac Severe myalgias Verified 10/28/23 18:51 Inhibitor [Almdawj-Lfq-Sqo Reductase Inhibitor] amoxicillin [From Augmentin] AdvReac Other Verified 10/28/23 18:51 clavulanic acid AdvReac Other Verified 10/28/23 18:51 [From Augmentin] codeine AdvReac Nausea Verified 10/28/23 18:51 naproxen [From Naprosyn] AdvReac Nausea Verified 10/28/23 18:51 Family History Mother Aortic stenosis Presence of permanent cardiac pacemaker Surgical History History of cholecystectomy History of herniorrhaphy History of tonsillectomy Status post ORIF of fracture of ankle Social History household members: spouse Smoking Status: Former smoker alcohol intake: never substance use type: does not use caffeine: Yes Type: coffee Number of servings: 3 ROS ROS ED Constitutional Constitutional ED: Denies chills or fever(s) Eyes Eyes: Denies discharge from eye(s) ENT ENT ED: Denies discharge from eye(s), rhinorrhea or sore throat Cardiovascular Cardiovascular: Reports palpitations; Denies chest pain Respiratory/Chest Respiratory/Chest: Denies cough or dyspnea Gastrointestinal Gastrointestinal: Denies abdominal pain, nausea or vomiting Genitourinary Genitourinary ED: Denies dysuria Musculoskeletal Musculoskeletal: Denies back pain or extremity pain Integumentary Denies Abrasions or rash Neurologic Neurologic: Denies headache(s) or weakness Psychiatric Psychiatric: Denies anxiety or depression Allergic/Immunologic Allergic/Immunologic ED: Denies lip swelling or urticaria EXAM Physical Exam Const Vital Signs: 10/28/23 18:51 10/28/23 18:45 10/28/23 19:24 Temperature 96.4 F L 96.4 F L Temperature Source Temporal Temporal Pulse Rate 80 80 Respiratory Rate 18 16 Respiratory Effort Normal Non-Labored Blood Pressure 172/66 H 172/66 H Blood Pressure Mean 101 101 Pulse Ox 96 96 Oxygen Delivery Method Room Air Room Air 10/28/23 19:32 10/28/23 20:04 10/28/23 21:12 Temperature 97.7 F L Temperature Source Pulse Rate 66 61 63 Respiratory Rate 14 14 16 Respiratory Effort Blood Pressure 162/73 H 152/58 H 152/58 H Blood Pressure Mean 102 89 89 Pulse Ox 97 97 95 Oxygen Delivery Method Room Air Room Air Positive well nourished and well developed General Appearance ED: well developed HEENT Reports moist mucous membranes Eyes EOMs intact bilaterally Chest Wall inspection of chest normal and palpation of chest normal Resp normal respiratory effort and clear to auscultation bilaterally Cardio regular rate and regular rhythm GI non-tender Palpation: soft Extremity normal to inspection Neuro oriented x3 and no sensory deficits noted Psych mental status grossly normal MDM MDM MDM Narrative Medical decision making narrative: Patient placed on nuclear monitoring technician. EKG obtained to evaluate for cardiac arrhythmia/ischemia. IV line established. Labwork obtained to evaluate for leukocytosis, anemia, and electrolyte derangement. Patient given 500 cc IV fluid bolus. History & Record Review Discussion w/independent historian: Patient Lab Data Attestation: I reviewed the patient's lab results. Labs: Laboratory Results - last 24 hr 10/28/23 10/28/23 10/28/23 19:20 19:31 20:19 WBC 5.0 RBC 4.30 Hgb 12.5 Hct 38.4 MCV 89.3 MCH 29.1 MCHC 32.6 RDW Std Deviation 42.0 RDW Coeff of Madalyn 12.9 Plt Count 170 MPV 12.1 H Immature Gran % (Auto) 0.000 Neut % (Auto) 73.4 H Lymph % (Auto) 14.4 L Titus % (Auto) 6.2 Eos % (Auto) 5.4 H Baso % (Auto) 0.6 Absolute Neuts (auto) 3.7 Absolute Lymphs (auto) 0.72 L Nucleated RBC % 0 Sodium 136 Potassium 4.0 Chloride 103 Carbon Dioxide 29.0 Anion Gap 4 L BUN 21 H Creatinine 0.95 Estim Creat Clear Calc 78.68 Est GFR (MDRD) Af Amer 73 Est GFR (MDRD) Non-Af 60 BUN/Creatinine Ratio 22.1 H Glucose 315 H Calcium 8.8 Troponin I High Sens 10 POC Glucose 285 H 274 H EKG Initial EKG: Attestation: I personally reviewed and interpreted this EKG as follows: Interpretation: Sinus Rhythm (Sinus at 68 with no acute ischemia.) Treatment and Re-Evaluation :: CBC was a white count of 5.0 with a hemoglobin of 12.5. Chemistry studies remarkable only for a glucose of 315. Troponin is normal at 10. EKG is sinus rhythm at 68 bpm with no evidence of acute ischemia. Patient was given 500 cc IV fluid bolus here. That along with the 5 units of Humalog she had taken priorto arrival dropped her blood sugar to 274. I ordered another 6 units of fast acting insulin. Patient was concerned about that dropping her too much so she only wanted to take 3 units. She will take her long-acting insulin at bedtime tonight. Patient be discharged home with family at this time. Addendum: Patient's blood sugar was rechecked just prior to her leaving. Her blood sugars back up to 288. She agreed to take the additional 3 units of insulin that had initially been ordered. Discharge Plan Triage Chief Complaint: Hyperglycemia ED Provider: Tierney Francis Dx/Rx/DC Orders Clinical Impression: Hyperglycemia Instructions: ED Diabetic Hyperglycemia Prescriptions: No Action aspirin 81 mg tablet,delayed release (DR/EC) 81 mg PO DAILY Patient Comments: only takes sometimes cholecalciferol (vitamin D3) 1,250 mcg (50,000 unit) capsule 1,250 mcg PO QWEEK furosemide 20 mg tablet 20 mg PO DAILY PRN (Reason: water pill) insulin lispro 100 unit/mL solution 6 unit subcut TIDCM Protocol: 4. Sliding Scale Insulin High-Med Dosing Condition: 150-199 mg/dl = 2 units Condition: 200-259 mg/dl = 4 units Condition: 260-324 mg/dl = 6 units Condition: 325-374 mg/dl = 8 units Condition: 375-409 mg/dl = 10 units Condition: 410-449 mg/dl = 11 units Condition: Greater than 449 call physician Protocol Text: - Use for Total Daily Dose of Insulin 56-80 units - Patient who are insulin resistant or septic HIGH MEDIUM DOSING ALGORITHM Patient Comments: INJECT 3 TO 10 UNITS SUBCUTANEOUSLY BEFORE MEALS DIRECTED budesonide-formoterol 160-4.5 mcg/actuation HFA aerosol inhaler 2 puff inhalation BID omeprazole magnesium [Prilosec OTC] 20 mg tablet,delayed release (DR/EC) 20 mg PO DAILY ramipril 10 MG capsule 10 mg PO BID Patient Comments: TAKE 1 CAPSULE BY MOUTH TWICE DAILY zolpidem 5 mg Tablet 2.5 mg PO QHS PRN (Reason: Insomnia) albuterol sulfate [Ventolin HFA] 90 mcg/actuation HFA aerosol inhaler 2 puff INHALATION 4XD PRN (Reason: sob) Qty: 8.5 0RF Rx Instructions: use four times a day for the next seven days, then use every 6 hours as needed for shortness of breath metoprolol tartrate 25 mg tablet 25 mg PO BID acetaminophen [Tylenol] 325 mg Tablet 650 mg PO Q6H PRN PRN (Reason: Pain 1-10 Or Fever >100.7) Qty: 0 0RF insulin lispro [Humalog KwikPen Insulin] 100 unit/mL Insulin Pen See Protocol subcut ACHS Qty: 0 0RF Protocol: 4. Sliding Scale Insulin High-Med Dosing Condition: 150-199 mg/dl = 2 units Condition: 200-259 mg/dl = 4 units Condition: 260-324 mg/dl = 6 units Condition: 325-374 mg/dl = 8 units Condition: 375-409 mg/dl = 10 units Condition: 410-449 mg/dl = 11 units Condition: Greater than 449 call physician Protocol Text: - Use for Total Daily Dose of Insulin 56-80 units - Patient who are insulin resistant or septic HIGH MEDIUM DOSING ALGORITHM insulin glargine-yfgn 100 unit/mL (3 mL) insulin pen 24 unit subcut BID Qty: 15 0RF metoprolol tartrate 50 mg tablet 50 mg PO Q12H Patient Comments: takes half tablet in morning and night amlodipine 10 mg tablet 10 mg PO DAILY Patient Comments: takes half tablet/day Primary Care Provider: Octavio Reza Referrals: Octavio Reza MD [Primary Care Provider] - 1 Week Disposition Disposition: Home, Self Care What to do if you have Problems For any increased pain, shortness of breath, bleeding, nausea or vomiting, chestpain, or any unexpected problems, contact your Primary Care Provider. Call [facility] ([phone]) or report to the closest Emergency Room. Call 911 if necessary. 10/28/232119 <Electronically signed by Tierney Francis MD> Cosigner Signature (if applicable): CC: Dr. Octavio Reza MD ~ Signed [facility] Work Phone: 1(383) 768-341204-08-2024 Miscellaneous Notes* Telephone Encounter - Parris Eckert RN - 10/24/2023 2:48 PM EDT Pt called and is notified of providers results and instructions. Pt voices understanding. Parris Eckert, RN * Telephone Encounter - Octavio Reza MD - 10/24/2023 10:34 AM EDT Reviewed sugar lags. Early AM (4:40 and 5AM) sugars on 3rd and 4th 144 and 94. Sugars on 3rd stayed under 200. Some 200s on the 4th. Log did not show when she had meals. Looks like SSI she used did get sugars down from 200s without dropping too far. Okay to stay on same doses of N and Lantus plus current SSI. Send in sugars in 2 weeks (sooner if persistent problems with sugars over 250 or getting frequent lows below 90. * Telephone Encounter - Palma Gibson LPN - 10/21/2023 8:09 AM EDT Patients dropped off blood sugar log. Placed in pod for PCP to review. documented in this encounterWadsworth-Rittman Hospital04-01-2024 Miscellaneous Notes* Telephone Encounter - Octavio Reza MD - 10/17/2023 12:12 PM EDT Noted. Will await results of log of sugars. Will see if she follows the SSI with meals or not. * Telephone Encounter - Charisse Yu MA - 10/17/2023 9:46 AM EDT Spoke with patient regarding below. Patient has not been keeping a log other than below. 10/15 0435a 169 mg/dL 17 units novolog 0610a 173 mg/dL 2 units novolog 0810a 203 mg/dL 1025a 139 mg/dL 1315p 234 mg/dL 2.5 units novolog 1530p 269 mg/dL 5 units novolog 1945 146 mg/dL 2029 139 mg/dL 2054 164 mg/dL 24 units lantus 10/16 0520a 167 mg/dL 17 units novolog 0925a 90 mg/dL Pt reports the 10 units of lantus was a one time thing d/t afraid she took too much short acting insulin too soon before bed. Reports that she has been taking 24 units lantus qHS. Asked patient to log glucose and dosage of insulin for the week. She will bring in log Tuesday. Charisse Yu MA * Telephone Encounter - Octavio Reza MD - 10/14/2023 9:54 PM EDT If has sugars are variable after meals, can do the sliding scale with meals as noted below. Note that the SSI is for covering meals, not for every time checks sugars. Need log of sugars and how she has been taking her insulin (long acting and short-acting) for the past 2 weeks to figure out what Lantus dose should be. Remind her goal for fasting glucose is under 150 and that is what should base evening Lantus dose. See what the reason for dropping Lantus from 24 to 10 units (was she having frequent lows in the middle of the night or AM before breakfast?). * Telephone Encounter - Sahara Moreno RN - 10/14/2023 9:38 AM EDT Patient reports last night her BS reading was high (didn't say number). Took Lantus 10 units at bedtime (reports she is suppose to take 24 units). This morning at 4:45 am BS 277. Took her 17 units of NPH at this time. At around 5 am took 5 units of Novolog. Advised patient she should be ready to eat food when she takes the fast acting Novolog. At 7 am: BS 250 At 8:45 am: BS 137. This number made patient nervious and she ate yogart, 1/2 brownie, and a small bottle of gatorade w/sugar. At 9:10 am BS 113 Patient panic'd and called this nurse. We discussed her readings and how she is feeling. Advised normal BS is 74-99. Patient reports she has no symptoms of low BS- no shakiness, no dizziness, no weakness, no lightheadedness. Reports she feels ok. At 9:34 BS 141. Patient was relieved BS was not going lower. Patient and husbands question: Asking if patient should be doing sliding scale with novolog, based on BS readings? These instructions are not on patient's med list. Reports HHNurse instructed patientto do sliding scale novolog. Novolog: inject 3-10 units SQ before meals 3 x's / day: 150-199- take 2 units, 200-259: 4 units, 260-324: 6 units, 325-374: 8 units, 375-409: 10 units, 410- 449: 11 units, 450 or >: call nurse. Please advise patient and phone patient with reply: [phone]. documented in this encounterWadsworth-[facility]ittman [facility]03-18-2024 Miscellaneous Notes* Telephone Encounter - Parris Eckert RN - 10/03/2023 1:16 PM EDT Pts called and is notified of providers message and instructions. He voices understanding. Parris Eckert RN * Telephone Encounter - Davon Wolfe APRN.CNP - 10/03/2023 12:54 PM EDT Please let them know that yes, this is a safe option for patient to use to help with her cough. * Telephone Encounter - Rakel Agosto LPN - 10/03/2023 8:37 AM EDT Pt's calls to report he took pt to [facility] ER 3/16 for URI sx. reports pt tested neg for Covid, Influenza, and RSV. reports they were advised that lungs were clear, xray was neg. reports pt continues to cough and has lost her voice. reports he bought otc: Safe Tussin Cough medication for pt because it says it is for pt's with htn and dm. wants to make sure it is ok to give to pt. Rakel Agosto LPN documented in this encounterWadsworth-Rittman [facility]03-16-2024 Discharge summary Author Mark Castillo [facility] October 01, 2023 4:29pm Note Date/Time October 01, 2023 2:5 2pm [facility] Medical Records Department [address] [place] [address] Emergency Department Summary 10/01/23 MR#: [id number] Acct: [id number] Name: ATTILA KIDD Rep #:[id number] : 1945 78 From: Mark Castillo MD PCP: Dr. Octavio Reza MD Status:RE G ER Location: ED HPI <ALEN Diamond - Last Filed: 10/01/23 16:26> History of Present Illness Chief Complaint: Shortness of Breath Narrative Narrative: 78-year-old female with PMH of HTN, HLD, SVT, asthma and wears 2 L of O2 at night presents with 2 days of congestion and productive cough. Today she feels more short of breath and around 2 PM developed left-sided chest pain. Pain is worse with coughing but is still present without. No fever or chills. She has no appetite but denies nausea or vomiting. She states since she had influenza pneumonia and COVID last year she has required 2 L O2 at night. [facility] <ALEN Diamond - Last Filed: 10/01/23 16:26> [facility] Medical History Abnormal EKG Asthma Bimalleolar ankle fracture Charcot's joint of left foot Diabetes mellitus, type II Essential hypertension GERD (gastroesophageal reflux disease) History of DVT (deep vein thrombosis) Hyperglycemia due to type 2 diabetes mellitus Hyperlipidemia Hypertension THAIS (obstructive sleep apnea) Palpitations Paroxysmal SVT (supraventricular tachycardia) Premature atrial contractions Premature ventricular contraction Sinus bradycardia Home Medications aspirin 81 mg tablet,delayed release 81 mg PO DAILY heart health 11/24/17 [History Last Taken 01/19/19 16:00] ramipril 10 mg capsule 10 mg PO BID HEART 01/19/19 [History Last Taken 01/19/19 21:00] cholecalciferol (vitamin D3) 1,250 mcg (50,000 unit) capsule 1,250 mcg PO QWEEK SUPPLEMENT 12/03/19 [History Last Taken Unknown] furosemide 20 mg tablet 20 mg PO DAILY PRN water pill 01/22/21 [History Last Taken Unknown] budesonide-formoterol HFA 160 mcg-4.5 mcg/actuation aerosol inhaler 2 puff inhalation BID ASTHMA 12/21/21 [History Last Taken Unknown] zolpidem 5 mg tablet 2.5 mg PO QHS PRN Insomnia 02/11/22 [History Last Taken Unknown] insulin lispro 100 unit/mL subcutaneous solution 6 unit subcut TIDCM dm 06/22/22[History Last Taken Unknown] omeprazole magnesium 20 mg tablet,delayed release (Prilosec OTC) 20 mg PO DAILY GERD 06/22/22 [History Last Taken Unknown] albuterol sulfate 90 mcg/actuation aerosol inhaler (Ventolin HFA) 2 puff inhalation 4XD PRN sob #8.5 grams 07/14/22 [Rx Last Taken Unknown] metoprolol tartrate 25 mg tablet 25 mg PO BID BLOOD PRESSURE 07/17/22 [History Last Taken Unknown] acetaminophen 325 mg tablet (Tylenol) 650 mg (2 x 325 mg) PO Q6H PRN PRN Pain 1- 10 Or Fever >100.7 #0 tabs 08/02/22 [Rx Last Taken Unknown] insulin glargine-yfgn 100 unit/mL (3 mL) subcutaneous pen 24 unit (0.24 mL) subcut BID #15 mL 08/02/22 [Rx Last Taken Unknown] insulin lispro 100 unit/mL subcutaneous pen (Humalog KwikPen (U-100) Insulin) See Protocol subcut ACHS #0 mL 08/02/22 [Rx Last Taken Unknown] amlodipine 10 mg tablet 10 mg PO DAILY 10/01/23 [History Last Taken Unknown] metoprolol tartrate 50 mg tablet 50 mg PO Q12H heart rate, BP 10/01/23 [History Last Taken Unknown] Allergy/AdvReac Type Severity Reaction Status Date / Time hydromorphone Allergy Severe Anaphylaxis Verified 10/01/23 14:33 tramadol Allergy Severe Anaphylaxis Verified 10/01/23 14:33 amiodarone Allergy Intermediate Swelling Verified 10/01/23 14:33 Marienthal And Derivatives Allergy Intermediate Hives Verified 10/01/23 14:33 morphine Allergy Intermediate confusion Verified 10/01/23 14:33 moxifloxacin Allergy Intermediate Shortness Verified 10/01/23 14:33 of breath nabumetone Allergy Intermediate damaged Verified 10/01/23 14:33 kidney penicillin G Allergy Intermediate TURNS BLUE Verified 10/01/23 14:33 propoxyphene Allergy Intermediate PT UNSURE Verified 10/01/23 14:33 OF REACTION acetaminophen [From Edon] Allergy Mild dystonia Verified 10/01/23 14:33 amlodipine Allergy Mild Abd Verified 10/01/23 14:33 cramps/diarrhea ascorbic acid Allergy Mild Itching Verified 10/01/23 14:33 [From Airborne (ascorbate sodium)] desloratadine Allergy Mild headache Verified 10/01/23 14:33 glutamine Allergy Mild Itching Verified 10/01/23 14:33 [From Airborne (ascorbate sodium)] herbal complex no.124 Allergy Mild Itching Verified 10/01/23 14:33 [From Airborne (ascorbate sodium)] hydrocodone [From Edon] Allergy Mild dystonia Verified 10/01/23 14:33 lysine HCl Allergy Mild Itching Verified 10/01/23 14:33 [From Airborne (ascorbate sodium)] multivitamin with minerals Allergy Mild Itching Verified 10/01/23 14:33 [From Airborne (ascorbate sodium)] pravastatin Allergy Unknown unknown Verified 10/01/23 14:33 rosuvastatin [From Crestor] Allergy Unknown myalgias Verified 10/01/23 14:33 simvastatin Allergy Unknown unknown Verified 10/01/23 14:33 escitalopram Allergy Other Verified 10/01/23 14:33 hydrochlorothiazide Allergy Other Verified 10/01/23 14:33 Prsmzyw-QHK-FwZ Reductase AdvReac Severe myalgias Verified 10/01/23 14:33 Inhibitor [Agrgoid-Dfa-Jxj Reductase Inhibitor] amoxicillin [From Augmentin] AdvReac Other Verified 10/01/23 14:33 clavulanic acid AdvReac Other Verified 10/01/23 14:33 [From Augmentin] codeine AdvReac Nausea Verified 10/01/23 14:33 naproxen [From Naprosyn] AdvReac Nausea Verified 10/01/23 14:33 Family History Mother Aortic stenosis Presence of permanent cardiac pacemaker Surgical History History of cholecystectomy History of herniorrhaphy History of tonsillectomy Status post ORIF of fracture of ankle Social History household members: spouse Smoking Status: Former smoker alcohol intake: never substance use type: does not use caffeine: Yes Type: coffee Number of servings: 3 ROS <ALEN Diamond - Last Filed: 10/01/23 16:26> ROS ED ROS Narrative Constitutional: Negative for fever, chills. CVS: Positive for chest pain. No syncope or palpitations. Respiratory: Positive for shortness of breath, cough. GI: Negative for abdominal pain, nausea, vomiting, diarrhea. EXAM <ALEN Diamond - Last Filed: 10/01/23 16:26> Physical Exam Narrative Exam Narrative: CONST: Patient sitting in no acute distress. EYES: Normal inspection. NECK: Normal inspection. RESP: No respiratory distress, diminished due to body habitus but CTAB. CVS: Regular rate and rhythm, no murmur, no gallop. SKIN: Color normal, no rash, warm, dry, intact. EXTREMITIES: Normal appearance, no pedal edema. NEURO: Oriented x4. PSYCH: Normal affect. Const Vital Signs: 10/01/23 14:33 10/01/23 15:17 Temperature 99.3 F H Temperature Source Temporal Pulse Rate 67 Respiratory Rate 22 H Respiratory Effort Short of Breath Respiratory Depth Normal Respiratory Pattern Normal Blood Pressure 161/62 H Blood Pressure Mean 95 Pulse Ox 95 Oxygen Delivery Method Room Air Room Air <Dr. Mark Castillo MD - Last Filed: 10/01/23 16:29> Physical Exam Const Vital Signs: 10/01/23 14:33 03/16/24 15:17 Temperature 99.3 F H Temperature Source Temporal Pulse Rate 67 Respiratory Rate 22 H Respiratory Effort Short of Breath Respiratory Depth Normal Respiratory Pattern Normal Blood Pressure 161/62 H Blood Pressure Mean 95 Pulse Ox 95 Oxygen Delivery Method Room Air Room Air [facility] <ALEN Diamond - Last Filed: 10/01/23 16:26> [facility] Narrative Medical decision making narrative: History gathered from: Patient and spouse Differential: Viral URI, pneumonia, asthma exacerbation Patient has acute URI symptoms x 2 days. She complains of cough and chest pain. She appears well and nontoxic. RR is 22, revealing stable vital signs. She is95% on room air and has normal cardiopulmonary exam. She speaking in full sentences in no distress. CBC and BMP unremarkable. Glucose of 163 is consistent with her diabetes. CXR shows no acute process and COVID/flu/RSV is negative. EKG is sinus rhythm with no ischemic changes and troponin is normal. I suspect she has a viral URI/bronchitis and discussed symptomatic management athome. She is stable on room air here. She wears 2 L of O2 at home at night andwill monitor her oxygen levels. She was discharged in stable condition. I have personally performed a face to face assessment of the patient and have reviewed the ABIMBOLA Note. I performed a substantive portion of the visit including all aspects of the following. My dumont findings include: History is remarkable for history of smoking 25 years ago. Patient does have obstructive sleep apnea and uses oxygen at night. Her symptoms started yesterday. She has upper respiratory tract infectious symptoms. She also is endorsing productive cough of green thick sputum. She does have a history of diabetes. She denies polyuria polydipsia. Patient denies headache, visual, ocular auditory symptoms. She does endorse rhinorrhea, congestion and mild sore throat. She also reports chest discomfort. Her major concern is pneumonia. She has remote history of DVT which was provoked. She had an ankle fracture and was in rehab for 49 days. Patient denies orthopnea, PND. She does report dyspnea dyspnea on exertion since yesterday. She has chronic leg swelling. She has braces on her legs because of Charcot's joint disease due to her diabetes. Exam is remarkable for patient being tachypneic. She is not febrile. Her temperature is elevated for a 78-year-old person at 93.7 degrees. HEENT exam isremarkable for mild nasal congestion. Trachea is midline. There is no stridor. There is no JVD. Exam is limited to the fact that she is morbidly obese. Lungs reveal no wheeze, rales or rhonchi. Breath sounds are symmetric. Heart is regular. Rate is normal. There is no murmur, gallop or rub. Furthermore there is no use of accessory muscles or retractions. Medical Decision Making differential diagnosis would be acute upper respiratory infection, pneumonia, doubt pneumothorax. Atypical presentation for cardiac disease. Will review prior records. Other additions or changes: [None] Lab Data Labs: Laboratory Results - last 24 hr 10/01/23 15:00 WBC 8.4 RBC 4.44 Hgb 12.7 Hct 39.6 MCV 89.2 MCH 28.6 MCHC 32.1 RDW Std Deviation 41.0 RDW Coeff of Madalyn 12.5 Plt Count 182 MPV 12.1 H Immature Gran % (Auto) 0.100 Neut % (Auto) 81.4 H Lymph % (Auto) 9.3 L Titus % (Auto) 7.6 Eos % (Auto) 1.2 Baso % (Auto) 0.4 Absolute Neuts (auto) 6.9 Absolute Lymphs (auto) 0.78 L Nucleated RBC % 0 Sodium 138 Potassium 3.9 Chloride 103 Carbon Dioxide 29.0 Anion Gap 6 BUN 12 Creatinine 0.77 Estim Creat Clear Calc 92.45 Est GFR (MDRD) Af Amer 94 Est GFR (MDRD) Non-Af 78 BUN/Creatinine Ratio 15.7 Glucose 163 H Calcium 9.0 Troponin I High Sens 8 Radiography Diagnostic Testing: Clinical Impression(s) from Imaging Studies Chest X-Ray 10/01/23 14:39 IMPRESSION: No acute thoracic pathology. Electronically Signed: Thomas Cardenas MD at 15:58 EDT , ED attending interpretation of 2-view chest x-ray shows normal heart size, no acute infiltrate, edema, or effusion. EKG Initial EKG: Attestation: I personally reviewed and interpreted this EKG as follows: Interpretation: Sinus Rhythm and No Acute Injury Pattern Comments: Normal sinus rhythm with sinus arrhythmia at 67 bpm Normal intervals, no acute ischemic changes <Dr. Mark Castillo MD - Last Filed: 10/01/23 16:29> [facility] Narrative Medical decision making narrative: I have personally performed a face to face assessment of the patient and have reviewed the ABIMBOLA Note. I performed a substantive portion of the visit including all aspects of the following. My dumont findings include: History is remarkable for history of smoking 25 years ago. Patient does have obstructive sleep apnea and uses oxygen at night. Her symptoms started yesterday. She has upper respiratory tract infectious symptoms. She also is endorsing productive cough of green thick sputum. She does have a history of diabetes. She denies polyuria polydipsia. Patient denies headache, visual, ocular auditory symptoms. She does endorse rhinorrhea, congestion and mild sore throat. She also reports chest discomfort. Her major concern is pneumonia. She has remote history of DVT which was provoked. She had an ankle fracture and was in rehab for 49 days. Patient denies orthopnea, PND. She does report dyspnea dyspnea on exertion since yesterday. She has chronic leg swelling. She has braces on her legs because of Charcot's joint disease due to her diabetes. Exam is remarkable for patient being tachypneic. She is not febrile. Her temperature is elevated for a 78-year-old person at 93.7 degrees. HEENT exam is remarkable for mild nasal congestion. Trachea is midline. There is no stridor. There is no JVD. Exam is limited to the fact that she is morbidly obese. Lungs reveal no wheeze, rales or rhonchi. Breath sounds are symmetric. Heart is regular. Rate is normal. There is no murmur, gallop or rub. Furthermore there is no use of accessory muscles or retractions. Medical Decision Making differential diagnosis would be acute upper respiratory infection, pneumonia, doubt pneumothorax. Atypical presentation for cardiac disease. Will review prior records. Other additions or changes: [None] History & Record Review Additional record(s) reviewed:: Prior inpatient record (Dr. Rodriguez's note for July 2022 for admission from 2022 was reviewed.) and Prior outpatient record (Patient had recent visit for PACs and palpitations September 15 and September 20. She also had visits October 2022 for chest pain.) Lab Data Attestation: I reviewed the patient's lab results. Lab results narrative: CBC is unremarkable. Basic metabolic panel is marked for glucose of 163 with normal CO2 anion gap. Troponin is normal with hours of discomfort. Rapid antigen for COVID, influenza and RSV were all negative. Labs: Laboratory Results - last 24 hr 10/01/23 15:00 WBC 8.4 RBC 4.44 Hgb 12.7 Hct 39.6 MCV 89.2 MCH 28.6 MCHC 32.1 RDW Std Deviation 41.0 RDW Coeff of Madalyn 12.5 Plt Count 182 MPV 12.1 H Immature Gran % (Auto) 0.100 Neut % (Auto) 81.4 H Lymph % (Auto) 9.3 L Titus % (Auto) 7.6 Eos % (Auto) 1.2 Baso % (Auto) 0.4 Absolute Neuts (auto) 6.9 Absolute Lymphs (auto) 0.78 L Nucleated RBC % 0 Sodium 138 Potassium 3.9 Chloride 103 Carbon Dioxide 29.0 Anion Gap 6 BUN 12 Creatinine 0.77 Estim Creat Clear Calc 92.45 Est GFR (MDRD) Af Amer 94 Est GFR (MDRD) Non-Af 78 BUN/Creatinine Ratio 15.7 Glucose 163 H Calcium 9.0 Troponin I High Sens 8 Radiography Chest X-Ray - ED: 2 View and Read by ED Physician (There are no acute changes. Cardiac silhouette and size normal. Lung parenchyma reveals some chronic changes. Mediastinum is normal. Osseous structures are unremarkable.) Diagnostic Testing: Clinical Impression(s) from Imaging Studies Chest X-Ray 10/01/23 14:39 IMPRESSION: No acute thoracic pathology. Electronically Signed: Thomas Cardenas MD at 15:58 EDT , Discharge Plan Triage Chief Complaint: Shortness of Breath ED Midlevel Provider: Amber Martino ED Provider: Mark Castillo Dx/Rx/DC Orders Clinical Impression: Acute URI, Essential hypertension, Hyperlipidemia, Atypical chest pain, Obstructive sleep apnea Instructions: ED URI, Viral, No Abx (Adult) Prescriptions: No Action aspirin 81 mg tablet,delayed release (DR/EC) 81 mg PO DAILY Patient Comments: only takes sometimes cholecalciferol (vitamin D3) 1,250 mcg (50,000 unit) capsule 1,250 mcg PO QWEEK furosemide 20 mg tablet 20 mg PO DAILY PRN (Reason: water pill) insulin lispro 100 unit/mL solution 6 unit subcut TIDCM Protocol: 4. Sliding Scale Insulin High-Med Dosing Condition: 150-199 mg/dl = 2 units Condition: 200-259 mg/dl = 4 units Condition: 260-324 mg/dl = 6 units Condition: 325-374 mg/dl = 8 units Condition: 375-409 mg/dl = 10 units Condition: 410-449 mg/dl = 11 units Condition: Greater than 449 call physician Protocol Text: - Use for Total Daily Dose of Insulin 56-80 units - Patient who are insulin resistant or septic HIGH MEDIUM DOSING ALGORITHM Patient Comments: INJECT 3 TO 10 UNITS SUBCUTANEOUSLY BEFORE MEALS DIRECTED budesonide-formoterol 160-4.5 mcg/actuation HFA aerosol inhaler 2 puff inhalation BID omeprazole magnesium [Prilosec OTC] 20 mg tablet,delayed release (DR/EC) 20 mg PO DAILY ramipril 10 MG capsule 10 mg PO BID Patient Comments: TAKE 1 CAPSULE BY MOUTH TWICE DAILY zolpidem 5 mg Tablet 2.5 mg PO QHS PRN (Reason: Insomnia) albuterol sulfate [Ventolin HFA] 90 mcg/actuation HFA aerosol inhaler 2 puff INHALATION 4XD PRN (Reason: sob) Qty: 8.5 0RF Rx Instructions: use four times a day for the next seven days, then use every 6 hours as needed for shortness of breath metoprolol tartrate 25 mg tablet 25 mg PO BID acetaminophen [Tylenol] 325 mg Tablet 650 mg PO Q6H PRN PRN (Reason: Pain 1-10 Or Fever >100.7) Qty: 0 0RF insulin lispro [Humalog KwikPen Insulin] 100 unit/mL Insulin Pen See Protocol subcut ACHS Qty: 0 0RF Protocol: 4. Sliding Scale Insulin High-Med Dosing Condition: 150-199 mg/dl = 2 units Condition: 200-259 mg/dl = 4 units Condition: 260-324 mg/dl = 6 units Condition: 325-374 mg/dl = 8 units Condition: 375-409 mg/dl = 10 units Condition: 410-449 mg/dl = 11 units Condition: Greater than 449 call physician Protocol Text: - Use for Total Daily Dose of Insulin 56-80 units - Patient who are insulin resistant or septic HIGH MEDIUM DOSING ALGORITHM insulin glargine-yfgn 100 unit/mL (3 mL) insulin pen 24 unit subcut BID Qty: 15 0RF metoprolol tartrate 50 mg tablet 50 mg PO Q12H Patient Comments: takes half tablet in morning and night amlodipine 10 mg tablet 10 mg PO DAILY Patient Comments: takes half tablet/day Primary Care Provider: Octavio Reza Referrals: Octavio Reza MD [Primary Care Provider] - Activity Restrictions/Additional Instructions: Your chest x-ray shows no sign of pneumonia and COVID/flu/RSV swab is negative. I suspect this is a different viral upper respiratory infection. Use nasal saline and [id number]-[id number] congestion medication as needed. Follow-up with your doctor. If symptoms worsen return to ER. What to do if you have Problems For any increased pain, shortness of breath, bleeding, nausea or vomiting, chestpain, or any unexpected problems, contact your Primary Care Provider. Call [facility] ([phone]) or report to the closest Emergency Room. Call 911 if necessary. 10/01/23 1629 <Electronically signed by Mark Castillo MD> Cosigner Signature (if applicable): 10/01/23 1626 <Electronically signed by Amber LOWRY> CC: Dr. Octavio Reza MD ~ Signed [facility] Work Phone: [phone] Miscellaneous Notes* Telephone Encounter - Pattie Giles RN - 09/29/2023 2:53 PM EDT Patient calls to request an updated medication list be sent to [facility]. Faxed to [phone] per request. Pattie Giles RN documented in this encounterWadsworth-[facility]03-11-2024 Miscellaneous Notes* Telephone Encounter - Vibha Peña LPN - 09/26/2023 3:12 PM EDT Called the pharmacy and they gave a number of [phone]. Number called and PA approved from 09/26/23 to 09/25/24. PA approval number is [id number]. Pharmacy notified. Pt notified. * Telephone Encounter - Cesar Brush LPN - 09/26/2023 8:45 AM EDT PRIOR AUTHORIZATION Medication for Prior Authorization: glucose test strips testing 8 times daily Other formulary meds available : NO Insurance Company: [employer] phone number: [phone] Patient insurance ID number: [id number] Cesar Brush LPN Patient testing 8 times daily, blood sugars changing frequently, she takes 3 types insulin daily, Novolog at meals, NPH at breakfast and Glargine at bedtime. documented in this encounterWadsworth-[facility]ittman [facility]03-08-2024 Miscellaneous Notes* Telephone Encounter - Parris Eckert RN - 09/23/2023 8:18 AM EST Pt reports she is almost out of [...] you. Parris Eckert RN. documented in this encounterWadsworth-[facility]ittman [facility]03-07-2024 History of Present illness Narrative* Jeannine Perkins MD - 09/22/2023 1:15 PM EST Images from the original note were not included. . Respiratory Liscomb Note Patient name: Attila Kidd PCP: Octavio Reza MD CC: Follow-up asthma HPI: Attila Kidd 78 year old female former 10 pack [...] and 8 minutes 122 desaturation events, lowest oxyg en saturation 80%. Patient intolerant of BiPAP. Instructed to use supplemental oxygen at night 2 L.Today she states she has been doing fairly well. She is compliant with use of her inhaled therapy. No need for her rescue inhaler. Main symptom is dyspnea. She denies chronic cough, sputum productionor audible wheezing. No recent upper respiratory infections [...] Wheeled Walker NAME: JAI Matthew PATIENT NAME: Attila Kidd DATE: June 23, 2023 TIME: 9:38 AM [...] 0.48 Low Monocytes % % 6.3 Abs Titus <0.87 k/uL 0.46 Eosinophils % % 3.6 Abs Eosin <0.46 k/uL 0.26 Basophils % % 0.4 Abs Baso <0.11 k/uL 0.03 Immature Granulocytes % % 0.3 Abs Immature Gran <0.10 k/uL <0.03 NRBC /100 WBC 0.0 Absolute nRBC <0.01 k/uL <0.01 Diff Type Auto Imaging / Diagnostic Studies: CXR 05/2023 at [facility]: PAST MEDICAL HISTORY Diagnosis Date Adverse reaction [...] (Patient taking differently: Inject 24 Units subcutaneously dailyat bedtime. Give Lantus, not Basaglar per patient [...] test strip Test blood sugar(s) 8 times daily--MedicallyNecessary for labile blood sugars (highs and lows). Dx: Other DM Code E10.8, E11.610 Insulin: Yes mometasone (ELOCON) 0.1 % cream Apply to affected area once daily as needed (for scalp psoriasis). For 14 days. Treat for recurrences. Apply at bedtime then wash off in the morning flash glucose sensor (FREESTYLE RAISSA 2 SENSOR) kit Apply new sensor every fourteen (14) days to upper arm. L. acidophilus/Bifid. animalis (DAILY PROBIOTIC ORAL) Take 1 capsule by mouth once daily. cholecalciferol, Vitamin D3, (VITAMIN D3) 1,250 mcg (50,000 unit) cap capsule Take 1 capsule by mouth one time a week. Insulin [place], Disposable, (BD ULTRA-FINE FADY PEN NEEDLE) 32 [...] with as needed albuterol -Updated prescriptions -Monitor Kezia 2. Morbid obesity -Class III obesity, BMI 50 -Aggressive weight loss advised. She will discuss with her PCP -Obesity portends poor control of asthma 3. Obstructive sleep apnea -Continue nocturnal oxygen for now -Patient states she will retry her BiPAP -Weight loss advised Jeannine Perkins MD Respiratory Liscomb documented in this encounterWadsworth-[facility]03-06-2024 Instructions* Patient Instructions* Octavio Reza MD - 09/21/2023 2:07 PM EST May continue taking half pill of metoprolol twice daily and take extra half just as needed for symptomatic PACs (extra beats) or if ever have heart racing episode that does not resolve on its own. documented in this encounterWadsworth-[facility]itt[facility]03-06-2024 History of Present illness Narrative* Octavio Reza MD - 09/21/2023 1:56 PM EST This note was created using DAQRIriter. Subjective Attila Kidd is a 78 year old female. Patient presents with: ED Follow-up SUBJECTIVE: Attila Kidd is a 78 year old year old lady here today for ER follow up appointment for review ofmedical conditions. Was in ER for palpitations. Haynes irregular. In ER twice. 09/15--told to stay on metoprolol same dose and they placed 48 hour Holter. 09/20--Last night showed PSVT. PACs also seen on the monitors in the ER. Noted does not really feel heart racing. Just the skipping beats and flip flop sensation. To see Areli Estevez. No appointment made yet. Asked about increasing aspirin 81 mg from once daily to twice daily. Noted issues with psoriasis in scalp. Using topical--helping some. Homeopath recommended taking aspirin twice daily. Has helped. Ambien still effective when needed. Refills from March lasted till now. PAST MEDICAL HISTORY Diagnosis Date Adverse reaction [...] Unspecified asthma(493.90) 11/2013 PFTs. 09/2013 and 10/2013 Kezia. Vitamin D deficiency 08/21/2010 Current Outpatient Medications Medication Sig meloxicam (MOBIC) 15 mg tablet Take 1 tablet by mouth once daily. for pain. Take with food. budesonide-formoterol (SYMBICORT) 160-4.5 mcg/actuation inhaler Inhale 2 [...] (Patient taking differently: Inject 24 Units subcutaneously dailyat bedtime. Give Lantus, not Basaglar per patient [...] test strip Test blood sugar(s) 8 times daily--MedicallyNecessary for labile blood sugars (highs and lows). Dx: Other DM Code E10.8, E11.610 Insulin: Yes mometasone (ELOCON) 0.1 % cream Apply to affected area once daily as needed (for scalp psoriasis). For 14 days. Treat for recurrences. Apply at bedtime then wash off in the morning flash glucose sensor (FREESTYLE RAISSA 2 SENSOR) kit Apply new sensor every fourteen (14) days to upper arm. L. acidophilus/Bifid. animalis (DAILY PROBIOTIC ORAL) Take 1 capsule by mouth once daily. cholecalciferol, Vitamin D3, (VITAMIN D3) 1,250 mcg (50,000 unit) cap capsule Take 1 capsule by mouth one time a week. Insulin [place], Disposable, (BD ULTRA-FINE FADY PEN NEEDLE) 32 [...] for this visit. Review of Systems Objective Resp (P) 16 Physical Exam Constitutional: Appearance: Normal appearance. HENT: [...] normal. Speech: Speech normal. Behavior: Behavior normal. Thought Content: Thought content normal. Judgment: Judgment normal. Reviewed labs from [facility] Assessment and Plan Encounter Diagnosis ICD-10-CM 1. PSVT (paroxysmal supraventricular tachycardia) (HCC) I47.10 See patient instructions 2. PAC (premature atrial contraction) I49.1 See patient instructions 3. Primary insomnia F51.01 zolpidem (AMBIEN) 5 mg tablet Stable on present med. Continuers on Ambien as needed Above issues addressed with patient. Patient involved in shared decision making for management of medical issues. History and medications reviewed. Epic updated as needed Refills and/or prescriptions taken care of and meds adjusted as indicated after reviewed history, exam and labs. I spent a total of 32 minutes on the date of the service which included [id number] patient care, completing clinical documentation, obtaining and/or reviewing separately obtained history, performing a medically appropriate examination, counseling and educating the patient/family/caregiver, ordering medications, tests, or procedures, independently interpreting results (not separately reported), and communicating results to the patient/family/caregiver. Octavio Reza MD documented in this encounterWadsworth-Rittman [facility]03-06-[facility]24 Discharge summary Author Nik Nunez [facility] September 21, 2023 3:45am Note Date/Time September 21, 2023 12:4 4am [facility] Medical Records Department [address] [place] [address] Emergency Department Summary 09/21/23 MR#: [id number] Acct: [id number] Name: ATTILA KIDD Rep #:[id number] : 1945 78 From: Nik Nunez MD PCP: Dr. Octavio Reza MD Status:RE G ER Location: ED HPI History of Present Illness Chief Complaint: Palpitations Informant: patient Onset/Context/Timing Onset: Hours (1-2) Activity at onset: sudden, onset and activity on onset (getting ready for bed) Timing: Intermittent and Lasts (1-2 hrs; now gone) Quality: Positive for - (prickly) Location: Substernal Current Severity: Gone Maximum Severity: Moderate Worsened By: Nothing Relieved By: Nothing Associated Symptoms: Positive for Dyspnea, Lightheadedness and Palpitations; Negative for Nausea, Vomiting, Diaphoresis or Fever Narrative Narrative: Patient states she was getting ready for bed tonight and suddenly felt her heartracing, which made her feel lightheaded, little dyspneic, and having some prickling chest discomfort without radiation. Haynes similar to prior episodes ofSVT. She states she was on medication to prevent this remotely but taken off ofit may be 10 years ago. She was seen here for 5 days ago for an episode which was the first 1 in a long time, she had a monitor placed that she is trying to turn in and has not followed up with cardiology yet but she had another episode tonight but it resolved just prior to getting here to the hospital. Currently asymptomatic. [facility] Medical History Abnormal EKG Asthma Bimalleolar ankle fracture Charcot's joint of left foot Diabetes mellitus, type II Essential hypertension GERD (gastroesophageal reflux disease) History of DVT (deep vein thrombosis) Hyperglycemia due to type 2 diabetes mellitus Hyperlipidemia Hypertension THAIS (obstructive sleep apnea) Palpitations Paroxysmal SVT (supraventricular tachycardia) Premature atrial contractions Premature ventricular contraction Sinus bradycardia Home Medications aspirin 81 mg tablet,delayed release 81 mg PO DAILY heart health 11/24/17 [History Last Taken 01/19/19 16:00] ramipril 10 mg capsule 10 mg PO BID HEART 01/19/19 [History Last Taken 01/19/19 21:00] cholecalciferol (vitamin D3) 1,250 mcg (50,000 unit) capsule 1,250 mcg PO QWEEK SUPPLEMENT 12/03/19 [History Last Taken Unknown] furosemide 20 mg tablet 20 mg PO DAILY PRN water pill 01/22/21 [History Last Taken Unknown] budesonide-formoterol HFA 160 mcg-4.5 mcg/actuation aerosol inhaler 2 puff inhalation BID ASTHMA 12/21/21 [History Last Taken Unknown] zolpidem 5 mg tablet 2.5 mg PO QHS PRN Insomnia 02/11/22 [History Last Taken Unknown] insulin lispro 100 unit/mL subcutaneous solution 6 unit subcut TIDCM dm 06/22/22[History Last Taken Unknown] omeprazole magnesium 20 mg tablet,delayed release (Prilosec OTC) 20 mg PO DAILY GERD 06/22/22 [History Last Taken Unknown] albuterol sulfate 90 mcg/actuation aerosol inhaler (Ventolin HFA) 2 puff inhalation 4XD PRN sob #8.5 grams 07/14/22 [Rx Last Taken Unknown] amlodipine 5 mg tablet (Norvasc) 5 mg PO DAILY BLOOD PRESSURE 07/17/22 [History Last Taken Unknown] metoprolol tartrate 25 mg tablet 25 mg PO BID BLOOD PRESSURE 07/17/22 [History Last Taken Unknown] acetaminophen 325 mg tablet (Tylenol) 650 mg (2 x 325 mg) PO Q6H PRN PRN Pain 1- 10 Or Fever >100.7 #0 tabs 08/02/22 [Rx Last Taken Unknown] insulin glargine-yfgn 100 unit/mL (3 mL) subcutaneous pen 24 unit (0.24 mL) subcut BID #15 mL 08/02/22 [Rx Last Taken Unknown] insulin lispro 100 unit/mL subcutaneous pen (Humalog KwikPen (U-100) Insulin) See Protocol subcut ACHS #0 mL 08/02/22 [Rx Last Taken Unknown] Allergy/AdvReac Type Severity Reaction Status Date / Time hydromorphone Allergy Severe Anaphylaxis Verified 09/16/23 17:54 tramadol Allergy Severe Anaphylaxis Verified 09/16/23 17:54 amiodarone Allergy Intermediate Swelling Verified 09/16/23 17:54 Marienthal And Derivatives Allergy Intermediate Hives Verified 09/16/23 17:54 morphine Allergy Intermediate confusion Verified 09/16/23 17:54 moxifloxacin Allergy Intermediate Shortness Verified 09/16/23 17:54 of breath nabumetone Allergy Intermediate damaged Verified 09/16/23 17:54 kidney penicillin G Allergy Intermediate TURNS BLUE Verified 09/16/23 17:54 propoxyphene Allergy Intermediate PT UNSURE Verified 09/16/23 17:54 OF REACTION acetaminophen [From Edon] Allergy Mild dystonia Verified 09/16/23 17:54 amlodipine Allergy Mild Abd Verified 09/16/23 17:54 cramps/diarrhea ascorbic acid Allergy Mild Itching Verified 09/16/23 17:54 [From Airborne (ascorbate sodium)] desloratadine Allergy Mild headache Verified 09/16/23 17:54 glutamine Allergy Mild Itching Verified 09/16/23 17:54 [From Airborne (ascorbate sodium)] herbal complex no.124 Allergy Mild Itching Verified 09/16/23 17:54 [From Airborne (ascorbate sodium)] hydrocodone [From Edon] Allergy Mild dystonia Verified 09/16/23 17:54 lysine HCl Allergy Mild Itching Verified 09/16/23 17:54 [From Airborne (ascorbate sodium)] multivitamin with minerals Allergy Mild Itching Verified 09/16/23 17:54 [From Airborne (ascorbate sodium)] pravastatin Allergy Unknown unknown Verified 09/16/23 17:54 rosuvastatin [From Crestor] Allergy Unknown myalgias Verified 09/16/23 17:54 simvastatin Allergy Unknown unknown Verified 09/16/23 17:54 escitalopram Allergy Other Verified 09/16/23 17:54 hydrochlorothiazide Allergy Other Verified 09/16/23 17:54 Bkirewh-RAT-UmA Reductase AdvReac Severe myalgias Verified 09/16/23 17:54 Inhibitor [Fsydxnv-Nvt-Eer Reductase Inhibitor] amoxicillin [From Augmentin] AdvReac Other Verified 09/16/23 17:54 clavulanic acid AdvReac Other Verified 09/16/23 17:54 [From Augmentin] codeine AdvReac Nausea Verified 09/16/23 17:54 naproxen [From Naprosyn] AdvReac Nausea Verified 09/16/23 17:54 Family History Mother Aortic stenosis Presence of permanent cardiac pacemaker Surgical History History of cholecystectomy History of herniorrhaphy History of tonsillectomy Status post ORIF of fracture of ankle Social History household members: spouse Smoking Status: Former smoker alcohol intake: never substance use type: does not use caffeine: Yes Type: coffee Number of servings: 3 ROS ROS ED Constitutional Constitutional ED: Denies chills or fever(s) Eyes Eyes: Denies change in vision or diplopia ENT ENT ED: Denies rhinorrhea or sore throat Cardiovascular Cardiovascular: Reports as per HPI, chest pain, palpitations and racing heartbeat; Denies orthopnea Respiratory/Chest Respiratory/Chest: Denies cough or orthopnea Gastrointestinal Gastrointestinal: Denies abdominal pain, diarrhea, nausea or vomiting Genitourinary Genitourinary ED: Denies dysuria or hematuria Musculoskeletal Musculoskeletal: Reports other Details: Chronic bilateral lower extremity foot drop/problems due to Charcot foot due to diabetes, no acute symptoms ; Denies back pain or neck pain Integumentary Denies abscess or rash Neurologic Neurologic: Denies headache(s), paresthesias or weakness Psychiatric Psychiatric: Denies anxiety or suicidal thoughts EXAM Physical Exam Const Vital Signs: 09/21/23 00:22 09/21/23 01:03 09/21/23 01:03 Temperature 97.5 F L Temperature Source Temporal Pulse Rate 63 62 Respiratory Rate 22 H 18 Respiratory Effort Blood Pressure 160/70 H 154/66 H Blood Pressure Mean 100 95 Pulse Ox 99 96 Oxygen Delivery Method Room Air Room Air 09/21/23 01:29 Temperature Temperature Source Pulse Rate Respiratory Rate Respiratory Effort Normal Non-Labored Blood Pressure Blood Pressure Mean Pulse Ox Oxygen Delivery Method Positive well nourished, well developed and obese Constitutional Narrative: Well-appearing no acute distress General Appearance ED: well developed and NAD Nutritional Appearance: obese HEENT Reports moist mucous membranes normocephalic and atraumatic Eyes PERRL and EOMs intact bilaterally Neck full ROM, supple and no JVD Resp normal respiratory effort and clear to auscultation bilaterally Cardio regular rate, regular rhythm and no murmurs Rate: Negative for tachycardic GI non-tender and non-distended Auscultation: normoactive bowel sounds Palpation: soft Back/Spine no CVA tenderness General Back: other FROM Extremity normal to inspection General Extremety ED: Yes edema; Negative for pulses abnormal or tenderness General Extremity: edema bilateral lower extremity Details: mild; Negative for pulses abnormal Neuro oriented x3, CN's II-XII intact bilaterally and no sensory deficits noted Sensorium / Orientation: awake and alert Motor Exam: strength 5/5 throughout Skin no rashes or lesions noted and no wounds Heart Score History: Slightly/Non-Suspicious ECG: Normal Age: >/= 65 years Risk Factors: 1 or 2 Risk Factors Troponin: </= Normal Limit Score: 3 MDM MDM MDM Narrative Medical decision making narrative: Patient asymptomatic and has normal EKG, given the chest discomfort or shortnessof breath I thought it was prudent to obtain 2 sets of cardiac enzymes and observe her in the meantime. This was done and they were negative. Chest x-raynormal. She is ambulatory without recurrence of any dysrhythmias, although she was having some brief palpitations that felt like an occasional skip without anyof the other symptoms, and upon looking at the monitor/telemetry data, this coincided with rare PACs. At this time I think she is stable to be discharged home with close outpatient cardiology follow-up. She used to see Dr. Lott with the [facility], but then she was referred to Dr. Lynn, with whom she did have a consultation at 1 point. She is welcome to follow-up with whoever she prefers and she was given the information for [facility] since I have that readily available. If she has recurrence of her dysrhythmia, we discussed vagal maneuvers that she could attend prior to returning here to the ER. She is comfortable with that plan. Lab Data Attestation: I reviewed the patient's lab results. Labs: Laboratory Results - last 24 hr 09/21/23 09/21/23 00:56 03:09 WBC 6.3 RBC 4.40 Hgb 12.5 Hct 38.8 MCV 88.2 MCH 28.4 MCHC 32.2 RDW Std Deviation 40.6 RDW Coeff of Madalyn 12.6 Plt Count 209 MPV 11.8 Immature Gran % (Auto) 0.200 Neut % (Auto) 67.5 Lymph % (Auto) 17.9 L Titus % (Auto) 8.3 Eos % (Auto) 5.8 H Baso % (Auto) 0.3 Absolute Neuts (auto) 4.2 Absolute Lymphs (auto) 1.12 Nucleated RBC % 0 Sodium 139 Potassium 3.8 Chloride 107 Carbon Dioxide 29.0 Anion Gap 3 L BUN 16 Creatinine 1.00 Estim Creat Clear Calc 74.72 Est GFR (MDRD) Af Amer 69 Est GFR (MDRD) Non-Af 57 L BUN/Creatinine Ratio 16.0 Glucose 148 H Calcium 9.0 Troponin I High Sens 10 10 Radiography Diagnostic Testing: Clinical Impression(s) from Imaging Studies Chest X-Ray 09/21/23 00:39 IMPRESSION: No radiographic evidence of acute cardiopulmonary disease. Electronically Signed: Mohsen Izquierdo MD at 1:01 EST , Rhythm Strip Rhythm Strip: Sinus Rhythm Rate: 65 Ectopy: PAC(s) EKG Initial EKG: Attestation: I personally reviewed and interpreted this EKG as follows: Interpretation: Sinus Rhythm and No Acute Injury Pattern Comments: nml EKG Discharge Plan Triage Chief Complaint: Palpitations ED Provider: Nik Nunez Dx/Rx/DC Orders Clinical Impression: Palpitations, Paroxysmal supraventricular tachycardia, PAC (premature atrial contraction) Instructions: ED Palpitations Prescriptions: No Action aspirin 81 mg tablet,delayed release (DR/EC) 81 mg PO DAILY cholecalciferol (vitamin D3) 1,250 mcg (50,000 unit) capsule 1,250 mcg PO QWEEK furosemide 20 mg tablet 20 mg PO DAILY PRN (Reason: water pill) insulin lispro 100 unit/mL solution 6 unit subcut TIDCM Protocol: 4. Sliding Scale Insulin High-Med Dosing Condition: 150-199 mg/dl = 2 units Condition: 200-259 mg/dl = 4 units Condition: 260-324 mg/dl = 6 units Condition: 325-374 mg/dl = 8 units Condition: 375-409 mg/dl = 10 units Condition: 410-449 mg/dl = 11 units Condition: Greater than 449 call physician Protocol Text: - Use for Total Daily Dose of Insulin 56-80 units - Patient who are insulin resistant or septic HIGH MEDIUM DOSING ALGORITHM Patient Comments: INJECT 3 TO 10 UNITS SUBCUTANEOUSLY BEFORE MEALS DIRECTED budesonide-formoterol 160-4.5 mcg/actuation HFA aerosol inhaler 2 puff inhalation BID omeprazole magnesium [Prilosec OTC] 20 mg tablet,delayed release (DR/EC) 20 mg PO DAILY ramipril 10 MG capsule 10 mg PO BID Patient Comments: TAKE 1 CAPSULE BY MOUTH TWICE DAILY zolpidem 5 mg Tablet 2.5 mg PO QHS PRN (Reason: Insomnia) albuterol sulfate [Ventolin HFA] 90 mcg/actuation HFA aerosol inhaler 2 puff INHALATION 4XD PRN (Reason: sob) Qty: 8.5 0RF Rx Instructions: use four times a day for the next seven days, then use every 6 hours as needed for shortness of breath amlodipine [Norvasc] 5 mg tablet 5 mg PO DAILY metoprolol tartrate 25 mg tablet 25 mg PO BID acetaminophen [Tylenol] 325 mg Tablet 650 mg PO Q6H PRN PRN (Reason: Pain 1-10 Or Fever >100.7) Qty: 0 0RF insulin lispro [Humalog KwikPen Insulin] 100 unit/mL Insulin Pen See Protocol subcut ACHS Qty: 0 0RF Protocol: 4. Sliding Scale Insulin High-Med Dosing Condition: 150-199 mg/dl = 2 units Condition: 200-259 mg/dl = 4 units Condition: 260-324 mg/dl = 6 units Condition: 325-374 mg/dl = 8 units Condition: 375-409 mg/dl = 10 units Condition: 410-449 mg/dl = 11 units Condition: Greater than 449 call physician Protocol Text: - Use for Total Daily Dose of Insulin 56-80 units - Patient who are insulin resistant or septic HIGH MEDIUM DOSING ALGORITHM insulin glargine-yfgn 100 unit/mL (3 mL) insulin pen 24 unit subcut BID Qty: 15 0RF Primary Care Provider: Octavio Reza Referrals: Octavio Reza MD [Primary Care Provider] - Areli Estevez PA [Med Staff - [facility]] - As soon as possible Disposition Disposition: Home, Self Care What to do if you have Problems For any increased pain, shortness of breath, bleeding, nausea or vomiting, chestpain, or any unexpected problems, contact your Primary Care Provider. Call [facility] ([phone]) or report to the closest Emergency Room. Call 911 if necessary. 09/21/23 0345 <Electronically signed by Nik Nunez MD> Cosigner Signature (if applicable): CC: Dr. Octavio Reza MD ~ Signed [facility] Work Phone: [phone] [phone] Miscellaneous Notes* Telephone Encounter - Cesar Brush LPN - 09/05/2023 2:19 PM EST Patient returned call and went over results, notes from Lydia Grande TOBACCO STEMMER with understanding,. After going over questions with Sed rate and CRP being elevated. Patient wants to stay locally to see [facility] since she is in wheel chair and does not like to drive in big cities. She is going to check with her insurance which one is covered and may call back if needing to have referral and information faxed. * Telephone Encounter - Asmita Tapia RN - 09/05/2023 1:44 PM EST Voicemail left for pt to call provider's office and ask for a nurse, for message below. Asmita Tapia RN' * Telephone Encounter - Lydia Grande APRN.MADELIN - 09/05/2023 11:04 AM EST Please let her know that DORA and rheumatoid factor were negative. CRP and ESR are slightly elevated. Stable A1c. Vitamin D is normal. She may continue on with Advil with finding it helpful. If she would like to see a licensed nuclear operator I can place a consult. Schedule if [...] Lymph 1.00 - 4.00 k/uL 0.48 (L) Titus% % 6.3 Abs Titus <0.87 k/uL 0.46 Eosin% % 3.6 Abs [...] 25 Hydroxy 31.0 - 80.0 ng/mL 46.2 * Telephone Encounter - Asmita Tapia RN - 09/05/2023 10:00 AM EST Patient calling to ask provider to advise on her recent lab results from 09/01 and 09/02, when able. Thank you. documented in this encounterWadsworth-[facility]ittman [facility]02-15-2024 History of Present illness Narrative* Lydia Grande APRN.CNS - 09/01/2023 12:00 PM EST SUBJECTIVE: DTaP,Tdap,Td Vaccine(1 - Tdap) Never done RSV Vaccine(1 - 1-dose 60+ series) Never done Diabetic Foot Exam due on 10/27/2021 BP Controlled (<130/80) due on 05/11/2022 Urine Albumin:Creatinine Ratio due on 12/24/2022 Influenza Vaccine(1) due on 03/18/2023 Advance Directive Discussion due on 07/18/2023 LDL Cholesterol due on 09/14/2023 NILESH Attila Kidd is a 78 year old female. PMH [...] Depressive Disorder, Recurrent, in Full Remission (Hcc) Attila Kidd is a 78 year old female who [...] wonders if she may have a joint problemdue to this. Injury: no Location: both index fingers and left shoulder left knee Duration: 2-3 weeks Character: Alleviate: advil seemed to help Aggravate: no Renk-sbp-ekkbcpd: Prior occurrence: no Review of Systems Respiratory: Negative. Musculoskeletal: Positive for arthralgias. Objective BP 144/74 Pulse 64 Resp 16 Wt (!) 156.5 kg (345 lb) SpO2 96% BMI 50.95 kg/m Physical Exam Vitals and nursing note reviewed. Constitutional: Appearance: Normal appearance. HENT: Head: Normocephalic and atraumatic. Mouth/Throat: Lips: [place]. Mouth: Mucous membranes are moist. Eyes: Conjunctiva/sclera: [...] (Patient taking differently: Inject 24 Units subcutaneously dailyat bedtime. Give Lantus, not Basaglar per patient [...] test strip Test blood sugar(s) 8 times daily--MedicallyNecessary for labile blood sugars (highs and lows). Dx: Other DM Code E10.8, E11.610 Insulin: Yes cholecalciferol, Vitamin D3, (VITAMIN D3) 1,250 mcg (50,000 unit) cap capsule Take 1 capsule by mouth one time a week. Insulin [place]mo, Disposable, (BD ULTRA-FINE FADY PEN NEEDLE) 32 [...] Reported on 05/23/2023) flash glucose sensor (FREESTYLE RAISSA 2 SENSOR) kit Apply new sensor every [...] Unspecified asthma(493.90) 11/2013 PFTs. 09/2013 and 10/2013 Kezia. Vitamin D deficiency 08/21/2010 Social History Tobacco [...] Level: 4 - Moderate documented in this encounterWadsworth-Rittman Hospital12-07-2023 History of Present illness Narrative* Tierney Nunez PA-C - 06/23/2023 9:00 AM EST Images from the original note were not included. Patient: Attila Kidd PCP: Octavio Reza MD CC: follow up HPI: Attila Kidd 77 year old female former smoker, 10 pack years (quitting 1998) with PMH significant for hyperlipidemia, HTN, mitral valve disorder, GERD, Vit D deficiency, DM, THAIS non-compliant with PAP therapy, and asthma. Last office visit was 07/02/2021 with myself. Since that time patient has been admitted to [facility] on two occasions. The first being in June 2022 secondary to influenza A infection with hypoxia. Patient treated with Tamiflu and inhaled budesonide.Tamiflu was discontinued secondary to confusion and given an IM injection of Depo-Medrol. Discharged on 2L supplemental oxygen at rest and 4L with exertion. Patient returned to the ED in July 2022secondary and was admitted for bacterial pneumonia. Treated [...] also upset that her walk today demonstrated thatshe does not need supplemental oxygen during the [...] Unspecified asthma(493.90) 11/2013 PFTs. 09/2013 and 10/2013 Kezia. Vitamin D deficiency 08/21/2010 Allergies: Escitalopram Intolerance [...] (Patient taking differently: Inject 24 Units subcutaneously dailyat bedtime. Give Lantus, not Basaglar per patient [...] test strip Test blood sugar(s) 8 times daily--MedicallyNecessary for labile blood sugars (highs and lows). Dx: Other DM Code E10.8, E11.610 Insulin: Yes mometasone (ELOCON) 0.1 % cream Apply to affected area once daily as needed (for scalp psoriasis). For 14 days. Treat for recurrences. Apply at bedtime then wash off in the morning (Patient not taking: Reported on 05/23/2023) flash glucose sensor (FREESTYLE RAISSA 2 SENSOR) kit Apply new sensor every [...] (Patient not taking: Reported on 05/23/2023) Insulin [place]mo, Disposable, (BD ULTRA-FINE FADY PEN NEEDLE) 32 [...] pace 260 3 0.98 Exhaled nitric oxide (Kezia), 06/23/2023: 16 (normal < 20). 04/30/2021 45.0 (A) 02/23/2019 24.0 04/18/2017 56.0 (A) PFT, 06/23/2023 CXR, 05/28/2023 [facility] FINDINGS: The lungs are clear [...] wearing it for years secondary to intolerance ofthe mask. - OXIMETRY WITH AMBULATION - OXIMETRY [...] and edited and updated as necessary. Tierney Nunez PA-C documented in this encounterWadsworth-Rittman Hospital11-28-2023 Miscellaneous Notes* Telephone Encounter - Gloria Rand RN - 06/14/2023 8:45 AM EST Patient has been identified by name and [...] problem. Gloria Rand RN. documented in this encounterWadsworth-Rittman Hospital11-06-2023 Instructions* Patient Instructions* Octavio Reza MD - 05/23/2023 2:53 PM EST Biking--keep up every day. Work up from 8 minutes to 10 minutes. Gradually increase up to 15 minutes then after than 20 minutes. Might be every 2 to 4 weeks make anincrease. Decrease insulin with meals if having to [...] or other antifungal shampoos should be used twoto three times per week for two to four weeks in the initial treatment phase. Subsequently, the useof the medicated shampoo can be reduced to once a week to prevent relapse [30]. Minor adverse effects, such as irritation and/or burning sensation, are common with antifungal shampoo [31,32]. documented in this encounterWadsworth-Rittman Hospital11-06-2023 History of Present illness Narrative* Octavio Reza MD - 05/23/2023 2:20 PM EST This note was created using DAQRIriter. Subjective Attila Kidd is a 77 year old female. Patient presents with: F/U 4 month: Labs prior SUBJECTIVE: Attila Kidd is a 77 year old year old lady here today for 4 month follow up appointment for review of medical conditions. Had low sugar this AM at 69. Able to get juice. Reviewed had bad experience at [facility]. Noted saw Dr. Lees. Working on increasing [...] Unspecified asthma(493.90) 11/2013 PFTs. 09/2013 and 10/2013 Kezia. Vitamin D deficiency 08/21/2010 Current Outpatient Medications Medication Sig zolpidem (AMBIEN) 5 mg tablet Take 0.5-1 tablets by mouth at bedtime as needed for up to 90 days. insulin glargine 100 unit/mL (3 mL) Inject 27 Units subcutaneously daily at bedtime. Give Lantus, not Basaglar per patient preference (Patient taking differently: Inject 24 Units subcutaneously dailyat bedtime. Give Lantus, not Basaglar per patient [...] test strip Test blood sugar(s) 8 times daily--MedicallyNecessary for labile blood sugars (highs and lows). Dx: Other DM Code E10.8, E11.610 Insulin: Yes insulin NPH injection (HumuLIN N,NovoLIN N) Inject 15-20 Units subcutaneously daily with breakfast.Dispense 6 vials (3 months supply) budesonide-formoterol (SYMBICORT) 160-4.5 mcg/actuation inhaler Inhale 2 Puffs as instructed twice daily. ramipril (ALTACE) 10 mg capsule Take 1 capsule by mouth twice daily. insulin aspart U-100 (NOVOLOG U-100 INSULIN ASPART) 100 unit/mL Inject 3-10 Units subcutaneously three times daily before meals. As directed Insulin [place]mo, Disposable, (BD ULTRA-FINE FADY PEN NEEDLE) 32 [...] Reported on 05/23/2023) flash glucose sensor (FREESTYLE RAISSA 2 SENSOR) kit Apply new sensor every [...] Height as of 05/16/23: 176.5 cm (5' 9.5). Weight as of this encounter: 154.2 kg [...] 1. Type I diabetes mellitus with manifestations ([facility]) E10.8 COMP METABOLIC PANEL HGB A1C insulin [...] in adult, unspecified whether serious comorbidity present ([facility]) E66.01 Z68.42 Continue efforts at healthier diet. Stay as active as able despite physical limitations 6. Charcot foot due to diabetes mellitus (HCC) E11.610 7. Encounter for immunization Z23 INFLUENZA VACCINE, PRSV FREE, AGE 65+ YR, HIGH DOSE, QUADRIVALENT(FLUZONE HIGH-DOSE) Above issues addressed with patient. Patient [...] the date of the service which included [id number] patient care, completing clinical documentation, obtaining and/or reviewing separately obtained history, performing a medically appropriate examination, counseling and educating the patient/family/caregiver, ordering medications, tests, or procedures, independently interpreting results (not separately reported), and communicating results to the patient/family/caregiver. Octavio Reza MD documented in this encounterWadsworth-Rittman Hospital10-30-2023 History of Present illness Narrative* Anant Lees MD - 05/16/2023 9:54 AM EDT Images from the original note were not included. Anant Lees MD Interventional Cardiology [address] [place] [address] Chief Complaint Patient presents with: New Patient: Palpitations HISTORY OF PRESENT ILLNESS: Ms. Kidd is a 77 year old female seen [...] Unspecified asthma(493.90) 11/2013 PFTs. 09/2013 and 10/2013 Kezia. Vitamin D deficiency 08/21/2010 PAST SURGICAL HISTORY [...] 1/2 tablet by mouth twice a day 90tablet 3 furosemide (LASIX) 20 mg tablet Take 1 tablet by mouth once daily as needed. 90 tablet 3 amLODIPine (NORVASC) 10 mg tablet Take 0.5 tablets by mouth once daily. 90 tablet 3 blood sugar diagnostic (BLOOD GLUCOSE TEST) test strip Test blood sugar(s) 8 times daily--MedicallyNecessary for labile blood sugars (highs and lows). Dx: Other DM Code E10.8, E11.610 Insulin: Yes 200 Strip 11 mometasone (ELOCON) 0.1 % cream Apply to affected area once daily as needed (for scalp psoriasis). For 14 days. Treat for recurrences. Apply at bedtime then wash off in the morning 45 g 1 flash glucose sensor (FREESTYLE RAISSA 2 SENSOR) kit Apply new sensor every fourteen (14) days to upper arm. 6 Each 4 insulin NPH injection (HumuLIN N,NovoLIN N) Inject 15-20 Units subcutaneously daily with breakfast.Dispense 6 vials (3 months supply) 18 mL [...] time a week. 12 capsule 4 Insulin Saint Elmo, Disposable, (BD ULTRA-FINE FADY PEN NEEDLE) 32 [...] to correct any errors. documented in this encounterWadsworth-Rittman Hospital08-15-2023 Miscellaneous Notes* Telephone Encounter - Octavio Reza MD - 03/01/2023 12:44 AM EDT Okayed * Telephone Encounter - Charisse Yu MA - 02/28/2023 10:03 AM EDT LYNN 01/17/23 NOV 05/23/23 Charisse Yu MA * Telephone Encounter - Himanshu Bolden - 02/28/2023 8:10 AM EDT Patient has been identified by name and [...] and advise. Himanshu Bolden documented in this encounterWadsworth-Rittman Hospital08-07-2023 Miscellaneous Notes* Telephone Encounter - Cesar Brush LPN - 02/21/2023 1:42 PM EDT Printed order and faxed to [facility] as requested. Phoned patient and aware order was faxed as requested. * Telephone Encounter - Octavio Reza MD - 02/21/2023 1:08 PM EDT Filed order Fax order as requested * Telephone Encounter - Cesar Brush LPN - 02/21/2023 11:01 AM EDT Patient calling she had received her reminder from [facility] that she will need new order for 3 D mamm faxed to [phone]. Pending order to file. Please call patient when order has been faxed so she canschedule her appt at [facility]. Please advise documented in this encounterWadsworth-Rittman Hospital07-03-2023 Instructions* Patient Instructions* Octavio Reza MD - 01/17/2023 2:47 PM [...] just once a week. documented in this encounterWadsworth-Rittman Hospital07-03-2023 History of Present illness Narrative* Octavio Reza MD - 01/17/2023 1:40 PM EDT This note was created using DAQRIriter. Subjective Attila Kidd is a 77 year old female. Patient presents with: Follow Up: 4 month SUBJECTIVE: Attila Kidd is a 77 year old year old lady here today for 4 month follow up appointment for review of medical conditions. inflammatory things--rash that can be anywhere. Salve that was [...] past. Noted had a terrible time with [facility] in the hospital. Was bad. Ended up havingpsychotic episode. Recalls some of it. Was tied [...] Unspecified asthma(493.90) 11/2013 PFTs. 09/2013 and 10/2013 Kezia. Vitamin D deficiency 08/21/2010 Current Outpatient Medications Medication Sig zolpidem (AMBIEN) 5 mg tablet Take 0.5-1 tablets by mouth at bedtime as needed for up to 90 days. flash glucose sensor (FREESTYLE RAISSA 2 SENSOR) kit Apply new sensor every fourteen (14) days to upper arm. L. acidophilus/Bifid. animalis (DAILY PROBIOTIC ORAL) Take 1 capsule by mouth once daily. (Patient not taking: No sig reported) insulin NPH injection (HumuLIN N,NovoLIN N) Inject 15-20 Units subcutaneously daily with breakfast.Dispense 6 vials (3 months supply) budesonide-formoterol (SYMBICORT) 160-4.5 mcg/actuation inhaler Inhale 2 Puffs as instructed twice daily. ramipril (ALTACE) 10 mg capsule Take 1 capsule by mouth twice daily. insulin aspart U-100 (NOVOLOG U-100 INSULIN ASPART) 100 unit/mL Inject 3-10 Units subcutaneously three times daily before meals. As directed blood sugar diagnostic (BLOOD GLUCOSE TEST) test strip Test blood sugar(s) 8 times daily--MedicallyNecessary for labile blood sugars (highs and lows). [...] by mouth once daily as needed. Insulin Saint Elmo, Disposable, (BD ULTRA-FINE FADY PEN NEEDLE) 32 [...] Height as of 10/05/22: 175.3 cm (5' 9). Weight as of 11/12/22: 151 kg (333 [...] which included preparing to see the patient, [id number] patient care, completing clinical documentation, obtaining and/or reviewing separately obtained history, performing a medically appropriate examination, counseling and educating the pat ient/family/caregiver, ordering medications, tests, or procedures, independently interpreting results (not separately reported), and communicating results to the patient/family/caregiver. Octavio Reza MD documented in this encounterWadsworth-Rittman Hospital03-21-2023 History of Present illness Narrative* Davon Wolfe APRN.[facility] - 10/05/2022 1:06 PM EDT SUBJECTIVE Attila Kidd is a 77 year old female here today for acute concern. Chief Complaint Patient presents with: Same Day Appointment: lump in anus area x 1 week txd with antibiotics HPI Attila Kidd is a 77 year old female established patient of Dr. Reza. She presents today accompanied by her acutely for concerns of a sore to her vaginal area. Saw cargo bracer in the past for this, Trudy Verma. Amoxicillin and hot compresses cleared this up in the past. Onset this time was about a week ago. Started with a painful hard lump to the outside skin of the vaginal area. Tried Keflex from cargo bracer due to concerns of medicaiton interactions with [...] do anything for her and discharged her home.Over the weekend the area broke open and drained, she continued with warm compresses, was not taking antibiotics over the weekend. It had a bloody drainage come out. Feels like it has extended to herrectum now. She denies any fever, chills, nausea, [...] for 10 days. flash glucose sensor (FREESTYLE RAISSA 2 SENSOR) kit Apply new sensor every fourteen (14) days to upper arm. L. acidophilus/Bifid. animalis (DAILY PROBIOTIC ORAL) Take 1 capsule by mouth once daily. (Patient not taking: No sig reported) insulin NPH injection (HumuLIN N,NovoLIN N) Inject 15-20 Units subcutaneously daily with breakfast.Dispense 6 vials (3 months supply) budesonide-formoterol (SYMBICORT) 160-4.5 mcg/actuation inhaler Inhale 2 Puffs as instructed twice daily. ramipril (ALTACE) 10 mg capsule Take 1 capsule by mouth twice daily. insulin aspart U-100 (NOVOLOG U-100 INSULIN ASPART) 100 unit/mL Inject 3-10 Units subcutaneously three times daily before meals. As directed blood sugar diagnostic (BLOOD GLUCOSE TEST) test strip Test blood sugar(s) 8 times daily--MedicallyNecessary for labile blood sugars (highs and lows). [...] by mouth once daily as needed. Insulin Saint Elmo, Disposable, (BD ULTRA-FINE FADY PEN NEEDLE) 32 [...] Morbid Obesity With Bmi of 45.0-49.9, Adult ([facility]) - 04/18/2017 Asthma - 05/06/2014 Vitamin D Deficiency - 08/21/2010 Charcot Foot Due to Diabetes Mellitus ([facility]) Debility - 09/30/2009 Rosacea - 09/06/2007 Insomnia, Unspecified - 06/01/2007 Type I Diabetes Mellitus With Manifestations ([facility]) - 09/15/2005 Essential Hypertension - 09/15/2005 [...] nursing note reviewed. Exam conducted with a universal grinder tool present ( present in the room, ok [...] due to patient body habitus and limited positioningavailable with room/exam table set up. Musculoskeletal: Cervical [...] this point it seems the bradycardia might havebeen more equipment with an improper reading. Previously tolerated amoxicillin/Augmentin without problems so we agreed to have her try and finish that course. If issues or not improving then try the Bactrim as the risk of interaction with her JOEY-I is low and most recent potassium level was with innormal limits. Overall it seems the area is improving since it drained and no evidence of any areasneeding incision and drainage along with really no [...] from today's visit and in agreement with treatmentplan. Questions answered. Agrees to call the office if questions, concerns of issues with acute symptoms not improving or if they worsen. I spent a total of 25 minutes on the date of the service which included preparing to see the patient, [id number] patient care, completing clinical documentation, obtaining and/or reviewing separately obtained history, performing a medically appropriate examination, counseling and educating the pat ient/family/caregiver, ordering medications, tests, or procedures, and care coordination (not separately reported). Return if symptoms worsen or fail to improve, for Keep next scheduled appointment.. Davon Wolfe APRN-FABIO documented in this encounterWadsworth-Rittman Hospital03-21-2023 Miscellaneous Notes* Telephone Encounter - Davon Wolfe APRN.CNP - 10/05/2022 8:37 AM EDT Noted. We can certainly take a look and decide on what is the best next steps for her. * Telephone Encounter - Sahara Moreno RN - 10/05/2022 8:29 AM EDT Patient phoned concerned the lump on labia spread to anus. Was seen in [facility] ER on 10-01 per pcp and [employer] recommendation for lump on labia. Reports ER [...] very concerned. Scheduled same day appt with Assistant Professor Of Psychology. documented in this encounterWadsworth-Rittman Hospital03-17-2023 Miscellaneous Notes* Telephone Encounter - Sahara Moreno RN - 10/01/2022 1:15 PM EDT Phoned patient and advised to ER for larger lump in labia area and low POX and heart rate, per Dr. Reza and Molly Verma recommendation in staff message. Patient agreeable. * Telephone Encounter - Octavio Reza MD - 10/01/2022 8:40 AM EDT From Closed encounter: Patient calling with an update for Dr. Reza to situation documented below. Pt states she began the Augmentin that Dr. Reza ordered for her. Took first dose at 5AM this morning. Pt tries to sleep upright. States at about 7:30AM she put home SpO2 monitor on her finger andnoted her heart rate to be at 45. [...] has spread and is bigger into 2-3 areasnext to one another and is tender to [...] larger, she needs to return to her [employer] to address the lump getting largerSounds like developing worsening cellulitis and probably abscess--might need incision and drainage if there is an abscess. If she is failing outpatient treatment with oral meds, might need IV antibiotics. Forwarding to Trudy Verma who had been following with her. documented in this encounterWadsworth-Rittman Hospital03-16-2023 Miscellaneous Notes* Telephone Encounter - Rochelle Hoyt RN - 09/30/2022 6:07 PM EDT Spoke with patient. Given message from provider's office. Patient verbalizes understanding. Rochelle Hoyt RN * Telephone Encounter - Octavio Reza MD - 09/30/2022 4:59 PM EDT Looks like tolerated Augmentin and Amoxicillin before. [...] 10 days. Authorizing Provider: OCTAVIO REZA MD * Telephone Encounter - Cesar Brush LPN - 09/30/2022 8:09 AM EDT Patient calling Trudy Verma TOBAC[employer] STEMMER had her start Cephalexin 500 mg one capsule 4 times daily on 09/27 for her valvar issue and patient said 3 hours later she was noticing her heart was lower and she was more short of breath, her SPO2 was going down. She stopped it after 3 doses. She spoke to [employer] and restarted medication yesterday and had same reaction 3 hours later. She was asking [employer] to give her Bactrim rx, Trudy said no that is not what I want you to take. She was told to notify her PCP and see whatantibiotic PCP wants to put her on. Patient uses [facility] for her pharmacy. Please advise documented in this encounterWadsworth-Rittman Hospital03-13-2023 Miscellaneous Notes* Telephone Encounter - Michelle Wu RN - 09/27/2022 9:45 AM EDT Patient notified. Michelle Wu RN The following approved medication requests have been transmitted electronically. Requested Prescriptions Signed Prescriptions Disp Refills cephALEXin (KEFLEX) 500 mg capsule 28 capsule 0 Sig: Take 1 capsule by mouth four times daily for 7 days. Authorizing Provider: TRUDY VERMA Pharmacy Information Pharmacy Address [facility] [address] [place] [address] * Telephone Encounter - Trudy Verma APRN.PLATE SLITTER AND INSPECTOR - 09/27/2022 9:32 AM EDT Cephalexin prescribed since Bactrim can raise her potassium level. She should continue the warm compresses. If lump worsens, she will need to be evaluated in the office. Trudy Verma APRN.CNP * Telephone Encounter - Tierney Guajardo RN - 09/27/2022 9:09 AM EDT Patient called with c/o lump on labia. Asking if [facility] would send in RX for Bactrim. Last seen in 2020for the same issue. It's the size of a dime. Discomfort when she pushes on it. Has been using a warm compress and applying Aquaphor and A&D ointment. Patient just got out of the hospital and having breathing problems. Asking if [facility] could send in the RX for Bactrim which helped her last time without being seen. Uses [facility] in [place]. Tierney Guajardo RN documented in this encounterWadsworth-Rittman Hospital03-07-2023 Miscellaneous Notes* Telephone Encounter - Madeline Quintana LPN - 09/21/2022 10:13 AM EST Was addressed in OV. Madeline Quintana LPN * Telephone Encounter - Davon Wolfe APRN.CNP - 09/20/2022 2:36 PM EST Seen in office today with Octavio Reza MD See encounter for OV * Telephone Encounter - Palma Gibson LPN - 09/17/2022 10:58 AM EST Patient called in, states that she spoke with a nurse about her Insulin however she thinks she may have told her wrong. She take Insulin Lispro 3-10 units before meals as directed. For the most part she takes 3 units. She tries to stay on a low carb diet and does not usually need more than the 3 units. * Telephone Encounter - Patricia Mora LPN - 09/17/2022 10:53 AM EST Spoke with patient and she does not follow a sliding scale she states that if blood sugar is 230 orgreater than she takes a little more Novalog. [...] or follows a written sliding scale has frequentlow readings and she counters it was peanut butter and crackers. * Telephone Encounter - Octavio Reza MD - 09/16/2022 11:15 PM EST Verify with patient what her base rate and SSI that she is following now. * Telephone Encounter - Cayla Lynne LPN - 09/15/2022 12:26 PM EST Liliana with [facility] calling to see if there is a base rate or base rate sliding scale forthe Lispro insulin and Aspart insulin . Please advise. Cayla Lynne LPN documented in this encounterWadsworth-Rittman Hospital02-28-2023 Miscellaneous Notes* Telephone Encounter - Destinee Sims LPN - 09/14/2022 10:02 AM EST Patient notified. Destinee Sims LPN * Telephone Encounter - Destinee Sims LPN - 09/14/2022 10:01 AM EST ----- Message from Octavio Reza MD sent at 09/14/2022 8:42 AM EST ----- CBC within normal limits documented in this encounterWadsworth-Rittman Hospital02-21-2023 Instructions* Patient Instructions* Octavio Reza MD - 09/07/2022 6:08 PM [...] low sugar or dehydration. documented in this encounterWadsworth-Rittman Hospital02-21-2023 History of Present illness Narrative* Octavio Reza MD - 09/07/2022 5:20 PM EST This note was created using uBiome. Subjective Attila Kidd is a 77 year old female. Patient presents with: Established Patient SUBJECTIVE: Attila Kidd is a 77 year old year old [...] Unspecified asthma(493.90) 11/2013 PFTs. 09/2013 and 10/2013 Kezia. Vitamin D deficiency 08/21/2010 Current Outpatient Medications Medication Sig L. acidophilus/Bifid. animalis (DAILY PROBIOTIC ORAL) Take 1 capsule by mouth once daily. insulin NPH injection (HumuLIN N,NovoLIN N) Inject 15-20 Units subcutaneously daily with breakfast.Dispense 6 vials (3 months supply) budesonide-formoterol (SYMBICORT) [...] test strip Test blood sugar(s) 8 times daily--MedicallyNecessary for labile blood sugars (highs and lows). [...] by mouth once daily as needed. Insulin Saint Elmo, Disposable, (BD ULTRA-FINE FADY PEN NEEDLE) 32 [...] Height as of 09/21/21: 175.3 cm (5' 9). Weight as of 02/15/22: 153.8 kg (339 [...] the date of the service which included [id number] patient care, completing clinical documentation, performing a medically appropriate examination, and counseling and educating the patient/family/caregiver. Octavio Reza MD documented in this encounterWadsworth-Rittman Hospital02-15-2023 Miscellaneous Notes* Telephone Encounter - Arleen Toure APRN.CNP - 09/01/2022 3:14 PM EST Noted Arleen Toure APRN.CNP * Telephone Encounter - Cesar Brush LPN - 09/01/2022 2:06 PM EST Hubert from [facility] calling discharging patient from OT today patient has met all goals. documented in this encounterWadsworth-Rittman Hospital02-15-2023 Miscellaneous Notes* Telephone Encounter - Parris Eckert RN - 09/01/2022 9:06 AM EST Rekha PT with [facility] called and is notified of providers message and instructions. She voices understanding. Parris Eckert RN * Telephone Encounter - Lydia Grande APRN.MADELIN - 08/31/2022 4:39 PM EST Ok for [facility] plan, see below * Telephone Encounter - Parris Eckert RN - 08/31/2022 9:44 AM EST Rekha PT with [facility] called in her POC. She reports she [...] is a confidential number. documented in this encounterWadsworth-Rittman Hospital02-04-2023 Miscellaneous Notes* Telephone Encounter - Octavio Reza MD - 08/21/2022 9:19 AM EST Noted * Telephone Encounter - Sahara Moreno RN - 08/20/2022 1:45 PM EST Hubert- OT- [facility] - reporting POC: saw patient today for OT eval, and will see patient 1 x weekfor 3 weeks. documented in this encounterWadsworth-Rittman Hospital01-31-2023 Instructions* Patient Instructions* Octavio Reza MD - 08/17/2022 5:04 PM [...] off at night too. documented in this encounterWadsworth-Rittman Hospital01-31-2023 History of Present illness Narrative* Octavio Reza MD - 08/17/2022 4:24 PM EST This note was created using FotoIN Mobileter. Subjective Attila Kidd is a 77 year old female. Patient presents with: Hospital F/U: Follow up [facility] and [facility] discharge SUBJECTIVE: Attila Kidd is a 77 year old year old lady here today for follow up appointment for review of medical conditions. Discharged from [facility] after hospitalization at [facility] twice. Noted sugars have been running high since they changed her insulin at [facility]. Current probiotic causing constipation. Prefers Symbicort since [...] Unspecified asthma(493.90) 11/2013 PFTs. 09/2013 and 10/2013 Kezia. Vitamin D deficiency 08/21/2010 Current Outpatient Medications [...] test strip Test blood sugar(s) 8 times daily--MedicallyNecessary for labile blood sugars (highs and lows). [...] by mouth once daily as needed. Insulin Saint Elmo, Disposable, (BD ULTRA-FINE FADY PEN NEEDLE) 32 [...] N) Inject 15-20 Units subcutaneously daily with breakfast.Dispense 6 vials (3 months supply) (Patient not [...] the date of the service which included [id number]-[id number] patient care, completing clinical documentation, obtaining and/or reviewing separately obtained history, performing a medically appropriate examination, counseling and educating the patient/family/caregiver, and ordering medications, tests, or procedures. Octavio Reza MD documented in this encounterWadsworth-Rittman Hospital01-16-[address] Escalera [facility] August 02, 2022 12:32pm Note Date/Time August 02, 2022 8 :59am [facility] Medical Records Department [address] [place] [id number] Progress Note - Hospitalist 08/02/22 0854 MR#: [id number] Acct: [id number] Name: ATTILA KIDD Rep #:[id number] : 1945 77 From: Zay Escalera DO PCP: Dr. Octavio Reza MD Status:AD M IN Location: [place] [id number] Subjective Subjective Feels well. Breathing well w 4liters/m Objective Data Objective Data Vital Signs: Vital Signs Temp Pulse Resp BP Pulse Ox O2 Del Method O2 Flow Rate 36.7 C 73 18 154/57 H 94 Nasal Cannula 4 08/02/22 08:38 08/02/22 08:42 08/02/22 08:38 08/02/22 08:38 08/02/22 08:38 08/02/22 08:50 08/02/22 08:50 Oxygen Flow Rate (L/min) 4 Oxygen Delivery Method Nasal Cannula Weight: 149.5 kg Body Mass Index (BMI) 47.9 Intake & Output: Intake and Output for Last 24 Hours 07/31/22 08/01/22 08/02/22 23:59 23:59 23:59 Intake Total 3700 / 3700 50 / 50 Balance 3700 / 3700 50 / 50 Lab / Micro Data Result Diagrams: 08/02/22 06:00 08/02/22 06:00 Labs: Laboratory Results - last 24 hr 08/01/22 11:24: POC Glucose 383 H 08/01/22 16:34: POC Glucose 320 H 08/01/22 22:32: POC Glucose 368 H 08/02/22 06:00: WBC 5.1, RBC 3.95 L, Hgb 11.6 L, Hct 36.4 L, MCV 92.2, MCH 29.4,MCHC 31.9 L, RDW Std Deviation 43.3, RDW Coeff of Madalyn 12.9, Plt Count 158, MPV 12.6 H, Immature Gran % (Auto) 0.400, Neut % (Auto) 79.8 H, Lymph % (Auto) 11.1 L, Titus % (Auto) 8.1, Eos % (Auto) 0.4, Baso % (Auto) 0.2, Absolute Neuts (auto)4.0, Absolute Lymphs (auto) 0.56 L, Nucleated RBC % 0.6 08/02/22 06:00: Sodium 137, Potassium 3.7, Chloride 101, Carbon Dioxide 26.0, Anion Gap 10, BUN 9, Creatinine 0.66, Estim Creat Clear Calc 49.24, Est GFR (MDRD) Af Amer 111, Est GFR (MDRD) Non-Af 92, BUN/Creatinine Ratio 13.5, [id number] H, Calcium 8.0 L, Phosphorus 2.4 L, Magnesium 1.7 08/02/22 06:40: POC Glucose 217 H Micro: Microbiology 07/31/22 20:29 Urine, Clean Catch Legionella Antigen - Final 07/31/22 20:29 Urine, Clean Catch Streptococcus pneumoniae Antigen (M - Final 07/31/22 20:10 Nasal Secretion SARS-CoV-2 & FLU Antigen (Rapid) - Final SARS-CoV-2 (COVID 19) Physical Exam Const alert and no apparent distress Resp Resp Narrative: coarse BS bilaterally. Cardio regular rate, regular rhythm, S1 normal heart sound and S2 normal heart sound GI normal to inspection, nondistended, normoactive bowel sounds Assessment & Plan Assessment/Plan (1) Bilateral pneumonia: PLAN: Strep and legionella antigens negative On pip/tazo. change to augmentin speech therapy passed. (2) Acute hypokalemia: PLAN: resolved (3) Hypoxia: PLAN: 2/2 pnuemonia wean oxygen as tolerated PLAN: Plan Chronic conditions: * Diabetes mellitus type 2: Patient blood glucose control not optimal did continue with home regimen with plans to adjust doses as needed.? She was also placed on Accu-Cheks before meals and at bedtime with sliding scale coverage * Hypertension- Blood pressure controlled, home medications continued with dose adjustment as needed * GERD? On omeprazole did continue * Cardiac arrhythmias including PSVT as well as PACs and PVCs? Patient followed by cardiology on beta-blockers did continue * Class III obesity with BMI of 48? Weight loss advised * Obstructive sleep apnea? PAP therapy at night * Mild intermittent asthma? Patient was placed on bronchodilator treatment in addition to systemic steroid Physical deconditioning - Requested for PT OT eval and social director to assist with discharge planning. To SNF 08/02/22 1232 <Electronically signed by Zay Escalera DO> Cosigner Signature (if applicable): CC: ~ Signed [facility] Work Phone: 1(386) 481-243601-15-2023 History and physical note Author Dr. Gan [facility] August 01, 2022 7:10pm Note Date/Time July 31, 2022 1 0:18pm [facility] Medical Records Department [address] [place] [address] H&P Exam - Hospitalist 07/31/222208 MR#: [id number] Acct: [id number] Name: ATTILA KIDD Rep #:[id number] : 1945 77 From: Daisy Gan MD PCP: Dr. Octavio Reza MD Status:AD M IN Location: [facility] [id number] HPI - General General Date of Admission: 07/31/22 Date of Service: 07/31/22 Chief Complaint: general weakness HPI Narrative ATTILA KIDD, is a 77 F with a PMH as outlined who presents via the ED on 07/31/2022 with a complaint of genealised weakness, nausea and decreased appetite. She has recently been admitted twice over the last month for influenzaand covid as well as community acquired pneumonia for which she completed a course of antibiotics. She has been home and been declining. She has had some nausea, and not eating or drinking well. She denies any fever, chills, diarrhea,constipation or vomiting. She denies any abdominal pain. REview of systems is otherwise negative. There was some question about hypoxia; she says she checked her oxygen levels with one machine and it was low but when she checked it with another machine, she was fine. She denied any shortness of breath. Family also noted that she was having episodic confusion. Review of systems is otherwise negative. Vitals were BP of 133/83, MO of 99, RR of 23 and she was saturating at 98% on 4Lof oxygen. CBC was unremarkable, and CMP was only significant for total bilirubin of 1.3 but was otherwise WNL. Urinalysis showed leucocyte esterase of 100 and urine wbc of 5-10. COVID test was positive. She originally tested positive for covid on 07/23/2022. CXR showed right middle lobe, lingular nad left lower lobe infiltrates and small left pleural effusion. CT of the brain showed moderate cortical and central atrophy with mild cerebellar atrophy but no acute intracranial pathology. She has been admitted to managed for debility due to failure to thrive and COVID-19 infection. [facility] Medical History Abnormal EKG Asthma Bimalleolar ankle fracture Charcot's joint of left foot Diabetes mellitus, type II Essential hypertension GERD (gastroesophageal reflux disease) History of DVT (deep vein thrombosis) Hyperlipidemia Hypertension THAIS (obstructive sleep apnea) Paroxysmal SVT (supraventricular tachycardia) Premature atrial contractions Premature ventricular contraction Sinus bradycardia Home Medications aspirin 81 mg tablet,delayed release 81 mg PO DAILY heart health 11/24/17 [History Last Taken 01/19/19 16:00] ramipril 10 mg capsule 10 mg PO BID HEART 01/19/19 [History Last Taken 01/19/19 21:00] cholecalciferol (vitamin D3) 1,250 mcg (50,000 unit) capsule 1,250 mcg PO QWEEK SUPPLEMENT 12/03/19 [History Last Taken Unknown] furosemide 20 mg tablet 20 mg PO DAILY PRN water pill 01/22/21 [History Last Taken Unknown] insulin NPH isoph U-100 human 100 unit/mL subcutaneous suspension (Novolin N NPHU-100 Insulin isophane) 13 unit subcut QAM DIABETES 01/22/21 [History Last Taken Unknown] budesonide-formoterol HFA 160 mcg-4.5 mcg/actuation aerosol inhaler 2 puff inhalation BID ASTHMA 12/21/21 [History Last Taken Unknown] zolpidem 5 mg tablet 2.5 mg PO QHS PRN Insomnia 02/11/22 [History Last Taken Unknown] insulin lispro 100 unit/mL subcutaneous solution 6 unit subcut TIDCM dm 06/22/22[History Last Taken Unknown] omeprazole magnesium 20 mg tablet,delayed release (Prilosec OTC) 20 mg PO DAILY GERD 06/22/22 [History Last Taken Unknown] albuterol sulfate 90 mcg/actuation aerosol inhaler (Ventolin HFA) 2 puff inhalation 4XD PRN sob #8.5 grams 07/14/22 [Rx Last Taken Unknown] amlodipine 5 mg tablet (Norvasc) 5 mg PO DAILY BLOOD PRESSURE 07/17/22 [History Last Taken Unknown] metoprolol tartrate 25 mg tablet 25 mg PO BID BLOOD PRESSURE 07/17/22 [History Last Taken Unknown] cefdinir 300 mg capsule 300 mg PO BID 1 day #2 caps 07/24/22 [Rx Last Taken Unknown] insulin glargine-yfgn 100 unit/mL (3 mL) subcutaneous pen 30 unit subcut QHS 07/31/22 [History Last Taken Unknown] Allergy/AdvReac Type Severity Reaction Status Date / Time pravastatin Allergy Unknown unknown Verified 07/31/22 23:52 rosuvastatin [From Crestor] Allergy Unknown myalgias Verified 07/31/22 23:52 simvastatin Allergy Unknown unknown Verified 07/31/22 23:52 escitalopram Allergy Other Verified 07/31/22 23:52 hydrochlorothiazide Allergy Other Verified 07/31/22 23:52 Dwxxdoq-EFA-XaD Reductase AdvReac Severe myalgias Verified 07/31/22 23:52 Inhibitor [Axibsvo-Bpj-Vyk Reductase Inhibitor] codeine AdvReac Nausea Verified 07/31/22 23:52 naproxen [From Naprosyn] AdvReac Nausea Verified 07/31/22 23:52 Family History Mother Aortic stenosis Presence of permanent cardiac pacemaker Surgical History History of cholecystectomy History of tonsillectomy Social History household members: spouse Smoking Status: Former smoker alcohol intake: never substance use type: does not use ROS Constitutional Constitutional: Reports anorexia, fatigue, malaise and weakness; Denies change in weight, chills or fever(s) Eyes Eyes: Denies change in vision ENT HEENT: Denies dysphagia, headache(s), nasal congestion or sore throat Cardiovascular Cardiovascular: Reports dyspnea on exertion; Denies chest pain, edema, lightheadedness, orthopnea, palpitations, paroxysmal nocturnal dyspnea, rapid heart rate or syncope Respiratory/Chest Respiratory/Chest: Reports cough, dyspnea, shortness of breath at rest and shortness of breath with exertion; Denies excessive phlegm production, hemoptysis, productive cough or wheezing Gastrointestinal Gastrointestinal: Denies abdominal pain, constipation, diarrhea, nausea or vomiting Genitourinary Genitourinary: Denies burning urination or dysuria Musculoskeletal Musculoskeletal: Denies arthralgias Neurologic Neurologic: Denies confusion, dizziness, headache(s), numbness, seizure-like activity or seizures Psychiatric Psychiatric: Denies anxiety or depression Vital Signs Vital Signs Vital Signs: 07/31/22 17:52 07/31/22 19:14 07/31/22 19:14 Temperature 97.8 F Temperature Source Temporal Pulse Rate 89 97 Respiratory Rate 16 22 H Respiratory Effort Short of Breath Respiratory Pattern Tachypnea Blood Pressure 143/63 H 130/56 H Blood Pressure Mean 89 80 Pulse Ox 99 94 Oxygen Delivery Method Room Air Nasal Cannula Oxygen Flow Rate (L/min) 4 07/31/22 20:10 07/31/22 21:00 Temperature Temperature Source Pulse Rate 94 99 Respiratory Rate 16 23 H Respiratory Effort Respiratory Pattern Normal Blood Pressure 133/83 H Blood Pressure Mean 99 Pulse Ox 98 Oxygen Delivery Method Nasal Cannula Oxygen Flow Rate (L/min) 4 Weight Weight: 333 lb Body Mass Index (BMI) 49.1 Physical Exam Const alert, oriented x3 and no apparent distress Constitutional Narrative: super morbid obesity General Appearance: cooperative Orientation / Consciousness: lethargic HEENT normocephalic, head/scalp atraumatic and hearing grossly normal bilaterally HEENT Narrative: dry oral mucosal membranes Eyes PERRL, EOMs intact bilaterally and conjunctivae normal Neck no lymphadenopathy, supple and no JVD Resp Resp Narrative: diminished breath sounds bilaterally, bilatearl crackles, more audible in right mid and lower lung ramon, no wheezing. On 2L of oxygen by nasal canula Cardio regular rate, regular rhythm, S1 normal heart sound, S2 normal heart sound and no murmurs GI normal to inspection, nondistended, normoactive bowel sounds, soft to palpation,non-tender and non-distended Extremity normal to inspection, full ROM and no clubbing, cyanosis or edema Neuro oriented x3, CN's II-XII intact bilaterally, moves all extremities and no focal motor deficits Sensorium / Orientation: awake and alert Motor Exam: strength 5/5 throughout Psych affect normal Results Lab / Micro Data Result Diagrams: 07/31/22 18:33 07/31/22 18:33 Labs: Laboratory Results - last 24 hr 07/31/22 18:33: WBC 7.5, RBC 4.69, Hgb 13.8, Hct 42.9, MCV 91.5, MCH 29.4, MCHC 32.2, RDW Std Deviation 41.3, RDW Coeff of Madalyn 12.7, Plt Count 187, MPV 12.3 H, Immature Gran % (Auto) 0.100, Neut % (Auto) 86.7 H, Lymph % (Auto) 8.7 L, Titus %(Auto) 4.4, Eos % (Auto) 0.0, Baso % (Auto) 0.1, Absolute Neuts (auto) 6.5, Absolute Lymphs (auto) 0.65 L, Nucleated RBC % 0 07/31/22 18:33: Sodium 135 L, Potassium 3.9, Chloride 100, Carbon Dioxide 29.0, Anion Gap 6, BUN 17, Creatinine 0.99, Estim Creat Clear Calc 49.73, Est GFR (MDRD) Af Amer 70, Est GFR (MDRD) Non-Af 58 L, BUN/Creatinine Ratio 17.2, Glucose 113 H, Calcium 8.5, Total Bilirubin 1.30 H, AST 24, ALT 26, Alkaline Phosphatase 71, Total Protein 7.0, Albumin 2.8 L, Globulin 4.2, Albumin/GlobulinRatio 0.7 L 07/31/22 19:23: POC Glucose 121 H 07/31/22 20:11: Lactic Acid 1.5 07/31/22 20:29: Urine Color Yellow, Urine Clarity Sl. Cloudy, Urine pH 6.0, Ur Specific [place] 1.015, Urine Protein 15 H, Urine Glucose (UA) Normal, Urine Ketones 15 H, Urine Occult Blood Negative, Urine Nitrite Negative, Urine Bilirubin 1 H, Urine Urobilinogen 4 H, Ur Leukocyte Esterase 100 H, Urine RBC 0 SEEN, Urine WBC 5-10 SEEN, Ur Squamous Epith Cells 0-5 SEEN, Amorphous Sediment 1+ URATE, Urine Bacteria 0 SEEN, Urine Mucus 0 SEEN Micro: Microbiology 07/31/22 20:10 Nasal Secretion SARS-CoV-2 & FLU Antigen (Rapid) - Final SARS-CoV-2 (COVID 19) Radiology Impression Brain CT 07/31/22 19:52 IMPRESSION: Moderate cortical and central atrophy. Mild cerebellar atrophy. Mild chronic microvascular ischemic change. Electronically Signed: Jer Jennings MD, MARISA at 20:50 EST Reading Location ID and State: [facility] / [place] Tel , Service support , ADDENDUM: 07/31/222104 IMPRESSION: undefined Chest X-Ray 07/31/22 20:34 IMPRESSION: Right middle lobe, lingula and left lower lobe infiltrates. Small left pleural effusion. Electronically Signed: Jer Jennings MD, MARISA at 20:49 EST , Assessment & Plan Assessment/Plan (1) Bilateral pneumonia: (2) Acute hypokalemia: (3) Hypoxia: PLAN: Plan #Debility due to covid pneumonia and superimposed bacterial pneumonia * Admit to [facility]. * Patient recently tested positive for COVID on 07/23/2021. She was discharged home just a week ago on oral cefdinir for superimposed pneumonia. She had refused SNF placement at that time because she did not like the facilities. * She has completed a course of antibiotics but says she has still felt weak and feels short of breath today. She was hypoxic based on 1 machine but says she checked with another machine and she was fine. * She is still coughing though and she was only saturating at around 90% on 2 L of oxygen which is what she was discharged home on * Chest x-ray showed right middle lobe, lingula and left lower lobe infiltrates with small left pleural effusion. * In light of her having completed a course of antibiotics and still having these infiltrates, I think it is reasonable to get a chest CT. I worry that this patient is still only around 90% on 2 L of oxygen despite being treated with oral antibiotics. * She is now vaccinated against COVID and so is at a higher rate of complications from COVID. * Will start on IV Zosyn. * Get sputum culture and urine for strep and Legionella. * Titrate oxygen to maintain saturation above 90%. * #Hypoxia in the setting of COVID with superimposed bacterial pneumonia: As above. Titrate oxygen to maintain saturation above 90%. #Hypertension: On amlodipine, metoprolol and ramipril #Type 2 diabetes mellitus: On Lantus 30 units nightly. Insulin sliding scale. Accu-Cheks ACH S. #DVT prophylaxis: Lovenox CODE STATUS: Full code * Patient counseled extensively about different types of CODE STATUS including full code, DNR CCA and DNR CCA. Patient elects to be full code. * Total vtnt-nx-gsdm time 17 minutes. Charges/Coding Visit Charges Inpatient E&M: 41372 Init Hosp L3 Procedures Hospitalists Procedures: 31320 Advncd Care Plan 30 Min 08/01/221909 <Electronically signed by Daisy Gan MD> Cosigner Signature (if applicable): CC: Dr. Octavio Reza MD; Dr. Daisy Gan MD~ Signed [facility] Work Phone: 1(720) 809-224101-15-[address] Herring [facility] August 01, 2022 10:43am Note Date/Time August 01, 2022 7 :49am [facility] Medical Records Department [address] [place] [address] Progress Note - Hospitalist 08/01/22 0745 MR#: [id number] Acct: [id number] Name: ATTILA KIDD Rep #:[id number] : 1945 77 From: Tawanda Herring MD PCP: Dr. Octavio Reza MD Status:AD M [place]A Location: [place] [address] Subjective Subjective Follow-up hypoxia Patient is a 77-year-old lady recently discharged from the hospital following admission for influenza A virus infection presented with progressive generalizedweakness. CT of the chest obtained did show Bilateral multilobar pneumonia withreactive mediastinal/hilar adenopathy.. Neck COVID 19 acid came back positive admitted to monitored bed for further management Objective Data Objective Data Vital Signs: Vital Signs Temp Pulse Resp BP Pulse Ox O2 Del Method O2 Flow Rate 97.9 F 90 18 112/48 L 92 Nasal Cannula 4 08/01/22 04:47 08/01/22 04:47 08/01/22 04:47 08/01/22 04:47 08/01/22 04:47 08/01/22 04:47 08/01/22 04:47 Oxygen Flow Rate (L/min) 4 Oxygen Delivery Method Nasal Cannula Weight: 149.5 kg Body Mass Index (BMI) 47.9 Lab / Micro Data Result Diagrams: 08/01/22 06:28 08/01/22 06:28 Labs: Laboratory Results - last 24 hr 07/31/22 18:33: WBC 7.5, RBC 4.69, Hgb 13.8, Hct 42.9, MCV 91.5, MCH 29.4, MCHC 32.2, RDW Std Deviation 41.3, RDW Coeff of Madalyn 12.7, Plt Count 187, MPV 12.3 H, Immature Gran % (Auto) 0.100, Neut % (Auto) 86.7 H, Lymph % (Auto) 8.7 L, Titus %(Auto) 4.4, Eos % (Auto) 0.0, Baso % (Auto) 0.1, Absolute Neuts (auto) 6.5, Absolute Lymphs (auto) 0.65 L, Nucleated RBC % 0 07/31/22 18:33: Sodium 135 L, Potassium 3.9, Chloride 100, Carbon Dioxide 29.0, Anion Gap 6, BUN 17, Creatinine 0.99, Estim Creat Clear Calc 49.73, Est GFR (MDRD) Af Amer 70, Est GFR (MDRD) Non-Af 58 L, BUN/Creatinine Ratio 17.2, Glucose 113 H, Calcium 8.5, Total Bilirubin 1.30 H, AST 24, ALT 26, Alkaline Phosphatase 71, Total Protein 7.0, Albumin 2.8 L, Globulin 4.2, Albumin/GlobulinRatio 0.7 L 07/31/22 19:23: POC Glucose 121 H 07/31/22 20:11: Lactic Acid 1.5 07/31/22 20:29: Urine Color Yellow, Urine Clarity Sl. Cloudy, Urine pH 6.0, Ur Specific [place] 1.015, Urine Protein 15 H, Urine Glucose (UA) Normal, Urine Ketones 15 H, Urine Occult Blood Negative, Urine Nitrite Negative, Urine Bilirubin 1 H, Urine Urobilinogen 4 H, Ur Leukocyte Esterase 100 H, Urine RBC 0 SEEN, Urine WBC 5-10 SEEN, Ur Squamous Epith Cells 0-5 SEEN, Amorphous Sediment 1+ URATE, Urine Bacteria 0 SEEN, Urine Mucus 0 SEEN 08/01/22 00:05: POC Glucose 108 H 08/01/22 06:28: WBC 4.2 L, RBC 4.03 L, Hgb 11.7 L, Hct 37.5, MCV 93.1, MCH 29.0,MCHC 31.2 L, RDW Std Deviation 44.3 H, RDW Coeff of Madalyn 12.9, Plt Count 147 L, MPV 12.4 H, Immature Gran % (Auto) 0.200, Neut % (Auto) 77.8 H, Lymph % (Auto) 15.1 L, Titus % (Auto) 6.7, Eos % (Auto) 0.0, Baso % (Auto) 0.2, Absolute Neuts (auto) 3.3, Absolute Lymphs (auto) 0.63 L, Nucleated RBC % 0 08/01/22 06:34: POC Glucose 170 H Micro: Microbiology 07/31/22 20:29 Urine, Clean Catch Legionella Antigen - Final 07/31/22 20:29 Urine, Clean Catch Streptococcus pneumoniae Antigen (M - Final 07/31/22 20:10 Nasal Secretion SARS-CoV-2 & FLU Antigen (Rapid) - Final SARS-CoV-2 (COVID 19) Radiography Diagnostic Testing: Radiology Impression Brain CT 07/31/22 19:52 IMPRESSION: Moderate cortical and central atrophy. Mild cerebellar atrophy. Mild chronic microvascular ischemic change. Electronically Signed: Jer Jennings MD, MARISA at 20:50 EST , ADDENDUM: 07/31/222104 IMPRESSION: undefined Chest X-Ray 07/31/22 20:34 IMPRESSION: Right middle lobe, lingula and left lower lobe infiltrates. Small left pleural effusion. Electronically Signed: Jer Jennings MD, MARISA at 20:49 EST , Chest CT 08/01/22 00:00 IMPRESSION: 1. Bilateral multilobar pneumonia with reactive mediastinal/hilar adenopathy. 2. No central PE. Electronically Signed: Jesus Phillips MD at 2:27 EST , Physical Exam Narrative GENERAL: Patient appears ill looking HEENT: Atraumatic; normocephalic EYES; Anicteric, Normal Conjunctiva NECK; supple, normal thyroid, RESPIRATORY: Diminished to auscultation CARDIOVASCULAR:? Regular S1 S2, GI:? soft, normoactive bowel sounds, : No Renal angle tenderness; EXTREMITIES:? No edema, no clubbing, MUSCULOSKELETAL:? no muscle wasting NEURO:? Awake;? no lateralizing signs. SKIN:? No Rash PSYCH; Flat? affect Assessment & Plan Assessment/Plan (1) Bilateral pneumonia: (2) Acute hypokalemia: (3) Hypoxia: PLAN: Plan Patient is a 77-year-old lady recently discharged from the hospital following admission for influenza A virus infection presented with progressive generalizedweakness. CT of the chest obtained did show Bilateral multilobar pneumonia withreactive mediastinal/hilar adenopathy.. Neck COVID 19 acid came back positive admitted to monitored bed for further management 1.? Acute hypoxia ? Secondary to recent COVID-19 pneumonia with superimposed bacterial pneumonia. Admitted to a monitored bed started on broad-spectrum antibiotic therapy with Zosyn placed on supplemental oxygen culture sent we will follow-up on result. Patient progressed being monitored with oxygen requirement as well as daily CBC with differential 2.? Diabetes mellitus type 2 ? Patient blood glucose control not optimal did continue with home regimen with plans to adjust doses as needed.? She was also placed on Accu-Cheks before mealsand at bedtime with sliding scale coverage 3.? Hypertension - Blood pressure controlled, home medications continued with dose adjustment as needed 4.? GERD ? On omeprazole did continue 5.? Cardiac arrhythmias including PSVT as well as PACs and PVCs ? Patient followed by cardiology on beta-blockers did continue 6.? Class III obesity with BMI of 48 ? Weight loss advised 7.? Obstructive sleep apnea ? PAP therapy at night 8.? Mild intermittent asthma ? Patient was placed on bronchodilator treatment in addition to systemic steroid 9.? Physical deconditioning - Requested for PT OT eval and social director to assist with discharge planning 10. DVT prophylaxis ? Lovenox Time spent in the patient's overall evaluation,decision-making process, review of diagnostic data, adjustment of medication, review of med reconciliation, ordering of labs for the following morning, discussion with other providers, nursing nursing and ancillary staff involved in patient's care, documentation, 58 Minutes Charges/Coding Visit Charges Inpatient E&M: 82604 Subs Hosp L3 08/01/22 1043 <Electronically signed by Tawanda Herring MD> Cosigner Signature (if applicable): CC: ~ Signed [facility] Work Phone: 1(294) 688-937401-15-[address] Kessler [facility] July 31, 2022 10:41pm Note Date/Time July 31, 2022 7 :58[facility] Medical Records Department [address] [place] [address] Emergency Department Summary 07/31/22 MR#: [id number] Acct: [id number] Name: ATTILA KIDD Rep #:[id number] : 1945 77 From: Jesus Kessler MD PCP: Dr. Octavio Reza MD Status:AD M [place] Location: [place] [address] HPI History of Present Illness Chief Complaint: General Illness Informant: patient and EMS Narrative Narrative: I did review the EMS report on reason for transporting the patient. History is also obtained through patient. This is somewhat limited as she is occasionally confused. She will be good with some information and just have trouble explaining other issues. I also reviewed a discharge summary recently that mention she has intermittent confusion and history of some cognitive difficulties so this may be her baseline. The overall summary is that the patient has had a couple admissions recently forthe flu and then she had community-acquired pneumonia and COVID. It sounds likeshe has been home for about a week. But over the last day or so she has been getting nauseated and has lost interest in food. She is not actually vomiting. She states she is forcing herself to eat. She is moving her bowels well. No diarrhea or constipation. She is not having abdominal pain. She denies chest pain. She denies trouble breathing but states her oxygen level was low today. She checked it on 1 oxygen saturation monitor and it was 81%. But when I specifically asked if she was short of breath during that time she stated no. She then checked in on a different O2 sat machine and it was normal so this may have been an error of one of her machines. [facility] Medical History Abnormal EKG Asthma Bimalleolar ankle fracture Charcot's joint of left foot Diabetes mellitus, type II Essential hypertension GERD (gastroesophageal reflux disease) History of DVT (deep vein thrombosis) Hyperlipidemia Hypertension THAIS (obstructive sleep apnea) Paroxysmal SVT (supraventricular tachycardia) Premature atrial contractions Premature ventricular contraction Sinus bradycardia Home Medications aspirin 81 mg tablet,delayed release 81 mg PO DAILY [facility] 11/24/17 [History Last Taken 01/19/19 16:00] ramipril 10 mg capsule 10 mg PO BID HEART 01/19/19 [History Last Taken 01/19/19 21:00] cholecalciferol (vitamin D3) 1,250 mcg (50,000 unit) capsule 1,250 mcg PO QWEEK SUPPLEMENT 12/03/19 [History Last Taken Unknown] furosemide 20 mg tablet 20 mg PO DAILY PRN water pill 01/22/21 [History Last Taken Unknown] insulin NPH isoph U-100 human 100 unit/mL subcutaneous suspension (Novolin N NPHU-100 Insulin isophane) 13 unit subcut QAM DIABETES 01/22/21 [History Last Taken Unknown] budesonide-formoterol HFA 160 mcg-4.5 mcg/actuation aerosol inhaler 2 puff inhalation BID ASTHMA 12/21/21 [History Last Taken Unknown] zolpidem 5 mg tablet 2.5 mg PO QHS PRN Insomnia 02/11/22 [History Last Taken Unknown] insulin lispro 100 unit/mL subcutaneous solution 6 unit subcut TIDCM dm 06/22/22[History Last Taken Unknown] omeprazole magnesium 20 mg tablet,delayed release (Prilosec OTC) 20 mg PO DAILY GERD 06/22/22 [History Last Taken Unknown] albuterol sulfate 90 mcg/actuation aerosol inhaler (Ventolin HFA) 2 puff inhalation 4XD PRN sob #8.5 grams 07/14/22 [Rx Last Taken Unknown] amlodipine 5 mg tablet (Norvasc) 5 mg PO DAILY BLOOD PRESSURE 07/17/22 [History Last Taken Unknown] metoprolol tartrate 25 mg tablet 25 mg PO BID BLOOD PRESSURE 07/17/22 [History Last Taken Unknown] cefdinir 300 mg capsule 300 mg PO BID 1 day #2 caps 07/24/22 [Rx Last Taken Unknown] insulin glargine-yfgn 100 unit/mL (3 mL) subcutaneous pen 30 unit subcut QHS 07/31/22 [History Last Taken Unknown] Allergy/AdvReac Type Severity Reaction Status Date / Time albuterol [From Ventolin HFA] Allergy Intermediate nausea, Verified 07/31/22 17:52 vomiting pravastatin Allergy Unknown unknown Verified 07/31/22 17:52 rosuvastatin [From Crestor] Allergy Unknown myalgias Verified 07/31/22 17:52 simvastatin Allergy Unknown unknown Verified 07/31/22 17:52 escitalopram Allergy Other Verified 07/31/22 17:52 hydrochlorothiazide Allergy Other Verified 07/31/22 17:52 Rtjwrte-RMZ-JsQ Reductase AdvReac Severe myalgias Verified 07/31/22 17:52 Inhibitor [Agfpnye-Hca-Vjc Reductase Inhibitor] codeine AdvReac Nausea Verified 07/31/22 17:52 naproxen [From Naprosyn] AdvReac Nausea Verified 07/31/22 17:52 Family History Mother Aortic stenosis Presence of permanent cardiac pacemaker Surgical History History of cholecystectomy History of tonsillectomy Social History household members: spouse Smoking Status: Former smoker alcohol intake: never substance use type: does not use ROS ROS ED Constitutional Constitutional ED: Denies chills or fever(s) Eyes Eyes: Denies change in vision ENT ENT ED: Denies rhinorrhea or sore throat Cardiovascular Cardiovascular: Denies chest pain, palpitations or racing heartbeat Respiratory/Chest Respiratory/Chest: Reports cough; Denies dyspnea or sputum Gastrointestinal Gastrointestinal: Reports nausea; Denies abdominal pain, constipation, diarrhea or vomiting Genitourinary Genitourinary ED: Denies hematuria Musculoskeletal Musculoskeletal: Denies myalgias Integumentary Denies rash Neurologic Neurologic: Denies headache(s) Psychiatric Psychiatric: Reports anxiety Endocrine Endocrinology: Denies polydipsia or polyuria Hematologic/Lymphatic Hematologic/Lymphatic: Denies easy bleeding or easy bruising Allergic/Immunologic Allergic/Immunologic ED: Denies urticaria EXAM Physical Exam Narrative Exam Narrative: Patient awake alert and in no acute distress. Her breathing looks comfortable. She is on 4 L and has a O2 saturation anywhere between 94 and 99% on the monitorshowing no hypoxia. HEENT: No sign of head trauma. Mucous membranes might be slightly dry. No JVD noted in the neck. No stridor. Lungs are overall clear. She does not take the deep as the breaths but I am nothearing significant changes. The first breath or so had mild wheezing but it seemed to improve. I will give her a breathing treatment to see if this helps. She does have a history of asthma Heart is regular I do not hear murmur. Abdomen is obese but soft and completelynontender. There is no CVA tenderness. Extremities are not small. She has splints on both lower legs but I do not notice any significant pitting edema and she states her legs are normal for her. Skin is not pale or diaphoretic. Patient is alert oriented x3. She is occasionally a bad informant for some details and then other times she is quite good on specifics of admission and follow-up. I am not getting any focal deficit. Const Vital Signs: 07/31/22 17:52 07/31/22 19:14 07/31/22 19:14 Temperature 97.8 F Temperature Source Temporal Pulse Rate 89 97 Respiratory Rate 16 22 H Respiratory Effort Short of Breath Respiratory Pattern Tachypnea Blood Pressure 143/63 H 130/56 H Blood Pressure Mean 89 80 Pulse Ox 99 94 Oxygen Delivery Method Room Air Nasal Cannula Oxygen Flow Rate (L/min) 4 07/31/22 20:10 07/31/22 21:00 07/31/22 22:25 Temperature 98.6 F Temperature Source Temporal Pulse Rate 94 99 82 Respiratory Rate 16 23 H 20 H Respiratory Effort Respiratory Pattern Normal Blood Pressure 133/83 H 142/50 H Blood Pressure Mean 99 80 Pulse Ox 98 91 Oxygen Delivery Method Nasal Cannula Nasal Cannula Oxygen Flow Rate (L/min) 4 2 MDM MDM MDM Narrative Medical decision making narrative: Got further history from patient's son and who came in. Patient has been home. She was initially doing well but the last couple days she has been doing worse. Today she got much weaker. She had been walking with a walker buttoday she is too weak to do that. She is not eating and drinking well. She hashad nausea but no actual vomiting. She has had some soft stools but no watery diarrhea. Urine was a little darker but did not burn. They also state that shedid have some hypoxia earlier with sats down at the upper 80s. We have not beenable to reproduce that here though. has concerns of being able to care for her at home. Because she is getting weaker and weaker. Both he and the patient would like to see if they can get into rehab because she just does not feel she has enough energy after 2 hospital admissions. She feels like she is starting to get worse again. My interpretation of the patient's single view chest x-ray does show bilateral infiltrates versus atelectasis. This is worsening from prior. CBC shows normal white count overall normal. Electrolytes are overall unremarkable. Lactic acid is normal. Bilirubin is mildly elevated but the restof liver function test are normal. Urine shows 5-10 white cells but negative nitrites. This is not convincing evidence for UTI. CT scan of the head also read by radiology showed no acute process. My independent interpretation shows no mass or bleeding. This patient has had recent admissions. She has COVID test which is still positive. She is not eating and drinking well. She is now too weak to get up and walk. She lives at home with her who is much smaller than her. He states he cannot safely care for her now that she is not mobile. They both agree that she needs to come in the hospital for safety and care. She is amenable to rehab facility placement. I discussed the case with the hospitalistincluding the above results and the patient will be brought into the hospital. Lab Data Attestation: I reviewed the patient's lab results. Labs: Laboratory Results - last 24 hr 07/31/22 07/31/22 07/31/22 18:33 18:33 19:23 WBC 7.5 RBC 4.69 Hgb 13.8 Hct 42.9 MCV 91.5 MCH 29.4 MCHC 32.2 RDW Std Deviation 41.3 RDW Coeff of Madalyn 12.7 Plt Count 187 MPV 12.3 H Immature Gran % (Auto) 0.100 Neut % (Auto) 86.7 H Lymph % (Auto) 8.7 L Titus % (Auto) 4.4 Eos % (Auto) 0.0 Baso % (Auto) 0.1 Absolute Neuts (auto) 6.5 Absolute Lymphs (auto) 0.65 L Nucleated RBC % 0 Sodium 135 L Potassium 3.9 Chloride 100 Carbon Dioxide 29.0 Anion Gap 6 BUN 17 Creatinine 0.99 Estim Creat Clear Calc 49.73 Est GFR (MDRD) Af Amer 70 Est GFR (MDRD) Non-Af 58 L BUN/Creatinine Ratio 17.2 Glucose 113 H Lactic Acid Calcium 8.5 Total Bilirubin 1.30 H AST 24 ALT 26 Alkaline Phosphatase 71 Total Protein 7.0 Albumin 2.8 L Globulin 4.2 Albumin/Globulin Ratio 0.7 L Urine Color Urine Clarity Urine pH Ur Specific [place] Urine Protein Urine Glucose (UA) Urine Ketones Urine Occult Blood Urine Nitrite Urine Bilirubin Urine Urobilinogen Ur Leukocyte Esterase Urine RBC Urine WBC Ur Squamous Epith Cells Amorphous Sediment Urine Bacteria Urine Mucus POC Glucose 121 H 07/31/22 07/31/22 20:11 20:29 WBC RBC Hgb Hct MCV MCH MCHC RDW Std Deviation RDW Coeff of Madalyn Plt Count MPV Immature Gran % (Auto) Neut % (Auto) Lymph % (Auto) Titus % (Auto) Eos % (Auto) Baso % (Auto) Absolute Neuts (auto) Absolute Lymphs (auto) Nucleated RBC % Sodium Potassium Chloride Carbon Dioxide Anion Gap BUN Creatinine Estim Creat Clear Calc Est GFR (MDRD) Af Amer Est GFR (MDRD) Non-Af BUN/Creatinine Ratio Glucose Lactic Acid 1.5 Calcium Total Bilirubin AST ALT Alkaline Phosphatase Total Protein Albumin Globulin Albumin/Globulin Ratio Urine Color Yellow Urine Clarity Sl. Cloudy Urine pH 6.0 Ur Specific [place] 1.015 Urine Protein 15 H Urine Glucose (UA) Normal Urine Ketones 15 H Urine Occult Blood Negative Urine Nitrite Negative Urine Bilirubin 1 H Urine Urobilinogen 4 H Ur Leukocyte Esterase 100 H Urine RBC 0 SEEN Urine WBC 5-10 SEEN Ur Squamous Epith Cells 0-5 SEEN Amorphous Sediment 1+ URATE Urine Bacteria 0 SEEN Urine Mucus 0 SEEN POC Glucose Radiography Diagnostic Testing: Clinical Impression(s) from Imaging Studies Brain CT 07/31/22 19:52 IMPRESSION: Moderate cortical and central atrophy. Mild cerebellar atrophy. Mild chronic microvascular ischemic change. Electronically Signed: Jer Jennings MD, MARISA at 20:50 EST , ADDENDUM: 07/31/222104 IMPRESSION: undefined Chest X-Ray 07/31/22 20:34 IMPRESSION: Right middle lobe, lingula and left lower lobe infiltrates. Small left pleural effusion. Electronically Signed: Jer Jennings MD, JD at 20:49 EST , EKG Initial EKG: Comments: Plan depend interpretation of the patient's EKG done for generalized weakness shows sinus rhythm with PACs. No ventricular ectopy. No acute ST elevation. There are some diffuse nonspecific ST and T wave change. MO interval, QRS duration and QTc are normal. Discharge Plan Triage Chief Complaint: General Illness ED Provider: Jesus Kessler Dx/Rx/DC Orders Prescriptions: No Action aspirin 81 mg tablet,delayed release (DR/EC) 81 mg PO DAILY cholecalciferol (vitamin D3) 1,250 mcg (50,000 unit) capsule 1,250 mcg PO QWEEK furosemide 20 mg tablet 20 mg PO DAILY PRN (Reason: water pill) Novolin N NPH U-100 Insulin 100 unit/mL suspension 13 unit subcut QAM insulin lispro 100 unit/mL solution 6 unit subcut TIDCM Protocol: 4. Sliding Scale Insulin High-Med Dosing Condition: 150-199 mg/dl = 2 units Condition: 200-259 mg/dl = 4 units Condition: 260-324 mg/dl = 6 units Condition: 325-374 mg/dl = 8 units Condition: 375-409 mg/dl = 10 units Condition: 410-449 mg/dl = 11 units Condition: Greater than 449 call physician Protocol Text: - Use for Total Daily Dose of Insulin 56-80 units - Patient who are insulin resistant or septic HIGH MEDIUM DOSING ALGORITHM Label Comments: INJECT 3 TO 10 UNITS SUBCUTANEOUSLY BEFORE MEALS DIRECTED budesonide-formoterol 160-4.5 mcg/actuation HFA aerosol inhaler 2 puff inhalation BID omeprazole magnesium [Prilosec OTC] 20 mg tablet,delayed release (DR/EC) 20 mg PO DAILY ramipril 10 MG capsule 10 mg PO BID Label Comments: TAKE 1 CAPSULE BY MOUTH TWICE DAILY zolpidem 5 mg Tablet 2.5 mg PO QHS PRN (Reason: Insomnia) albuterol sulfate [Ventolin HFA] 90 mcg/actuation HFA aerosol inhaler 2 puff INHALATION 4XD PRN (Reason: sob) Qty: 8.5 0RF Rx Instructions: use four times a day for the next seven days, then use every 6 hours as needed for shortness of breath amlodipine [Norvasc] 5 mg tablet 5 mg PO DAILY metoprolol tartrate 25 mg tablet 25 mg PO BID cefdinir 300 mg capsule 300 mg PO BID 1 Days Qty: 2 0RF insulin glargine-yfgn 100 unit/mL (3 mL) insulin pen 30 unit subcut QHS Primary Care Provider: Octavio Reza Referrals: Octavio Reza MD [Primary Care Provider] - Disposition Disposition: Acute Care Hospital [facility] What to do if you have Problems For any increased pain, shortness of breath, bleeding, nausea or vomiting, chestpain, or any unexpected problems, contact your Primary Care Provider. Call [facility] ([phone]) or report to the closest Emergency Room. Call 911 if necessary. 07/31/222240 <Electronically signed by Jesus Kessler MD> Cosigner Signature (if applicable): CC: Dr. Octavio Reza MD ~ Signed [facility] Work Phone: [phone]) 455-328401-13-2023 Miscellaneous Notes* Telephone Encounter - Davon Wolfe APRN.CNP - 2022 11:30 AM EST Noted, agree * Telephone Encounter - Asmita Tapia RN - 2022 11:15 AM EST Charisse, a nurse with [facility] calling to update Dr. Reza that pt's called and notified [facility] that he was to give pt 2 units of insulin according to sliding scale today, however he accidentally gave pt 6 units. Charisse states she instructed to give pt 2-3 crackers with peanut butter and a small glass of orange juice and check pt's blood sugar in approximately 30 minutes. Pt is also getting ready to eat lunch. was advised to call [facility] for any further concerns. No call back needed, if PCP agreeable with instructions given to pt's . Thank you. documented in this encounterWadsworth-Rittman Hospital01-12-2023 Miscellaneous Notes* Telephone Encounter - Lydia Grande APRN.CNS - 07/29/2022 3:05 PM EST noted * Telephone Encounter - Darlene Mena RN - 07/29/2022 1:10 PM EST Bonnie OT from [facility] calls and states that patient requested only a one time visit. They worked on homesafety and equipment recommendations. Patient is overwhelmed currently and told Bonnie that if patient thinks she needs Bonnie again in a couple of weeks she will give her a call. Darlene Mena RN documented in this encounterWadsworth-Rittman Hospital01-12-2023 Miscellaneous Notes* Telephone Encounter - MAURICIO Azevedo - 07/29/2022 8:41 AM EST This Sw sent message back to TAMARA 07/26/22 note, in regards to SW order. [facility] has their own SW that makes home visits. This Sw believes that [facility] was looking for order for their own Sw to go and see patient. This SW does not provide home visits. documented in this encounterWadsworth-Rittman Hospital01-11-2023 Miscellaneous Notes* Addendum Note - Davon Wolfe APRN.CNP - 07/28/2022 10:31 AM ESTAddended by: DAVON WOLFE on: 07/28/2022 10:31 AM Modules accepted: Orders * Telephone Encounter - Davon Wolfe APRN.CNP - 07/28/2022 10:28 AM EST If patient agreeable can wait and discuss endocrine versus PharmD referral at her follow up next week. Okay for a referral for SW per request in prior encounter, I will put in the order. From prior message: Marilyn YING calling from [facility] to report plan of care for patient and Correction will visit patient 3 times a week for first week, 2 times a week for 2 weeks and 1 time a week for 3 weeks. intermediate will work with patient on diabetes education and food education. Marilyn states that patient only takes medications when she wants to take medications. Patients blood sugars was in 400's on Tuesday, Tuesday 300's, and this morning 250. Patient is currently taking insulins they way she is supposed to to be taking them. Marilyn has been calling before each meal. [facility] faxed over updated medication list as to what patient has been taking. Marilyn also asking for a SW order. There is some dynamics in patient's home. Patient and have been screaming at each other. Please review and Advise, Darlene Mena RN * Telephone Encounter - Patricia Mora LPN - 07/28/2022 9:13 AM EST Renu aware of below information. Spoke with patient and made her aware too. Follow up scheduled for 08/03/[address] Reza. * Telephone Encounter - Octavio Reza MD - 07/28/2022 8:23 AM EST 1) Patient may use SSI. Does she have one she uses that wants to continue? 2) Okay to d/c seroquel 3) Would offer to have patient work with PharmD through [facility] instead of escrow closer. How are her sugars running? 3) Can reschedule follow up * Telephone Encounter - Cayla Lynne LPN - 07/27/2022 2:36 PM EST Renu calling back to check status on message below. Cayla Lynne LPN * Telephone Encounter - Asmita Tapia RN - 07/26/2022 3:12 PM EST Renu, a [facility] nurse calling Dr. Reza with a couple [...] see Endocrinology due to poor blood sugar control?Pt told HH Nurse that she did not see eye-to-eye with past escrow closer. Lastly, during this call, this nurse noted pt was to have appt with PCP today but pt states she wasnot told about this appt. Please advise Renu at [phone]. Thank you. documented in this encounterWadsworth-Rittman Hospital01-11-2023 Miscellaneous Notes* Telephone Encounter - Cesar Brush ETHAN - 07/28/2022 8:08 AM EST Patient has been identified by name and [...] BP: 05/18/2022 128/80 Please advise. Thank you. Cesar Brush LPN documented in this encounterWadsworth-Rittman Hospital01-09-2023 Miscellaneous Notes* Telephone Encounter - Lydia Grande APRN.MADELIN - 07/26/2022 4:00 PM EST Noted, agree * Telephone Encounter - Darlene Mena RN - 07/26/2022 1:55 PM EST David PT calling from [facility] to report plan of care for patient and physical therapy will visit patient 2 times a week for 3 weeks. Physical therapy will work with patient on functional mobility training. No Call back needed if agreeable, Darlene Mena RN documented in this encounterWadsworth-Rittman Hospital01-02-2023 Miscellaneous Notes* Telephone Encounter - Octavio Reza MD - 07/19/2022 7:37 PM EST Below noted Patient was readmitted 07/18/22 Cannot find H&P on Care Everywhere, but looks like had worsened hypoxemia (though blood gas showed O2 sat 94%) and hypokalemia 3.0. Plan for follow up after discharge. * Telephone Encounter - Sahara Moreno RN - 07/16/2022 8:51 AM EST Patient reports she was in hospital for [...] 3:30 pm: 91% sitting on 2 L 12: 4:30 am: 84% sitting on 4L 5:00 [...] she gets plenty of liquids. 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 Does have a moist cough, but improved since hospital stay. No fever. BS this morning 229, which is much improved since hospital (BS ran 400's). Patient reports her fingers have been cold when taking POX reading, and will make surethey are warm before checking POX. Also has pink fingernail kittitian on, and will remove from one finger [...] been? Please advise patient. documented in this encounterWadsworth-Rittman Hospital12-30-2022 Miscellaneous Notes* Telephone Encounter - Daina Kaye RN - 07/16/2022 7:15 PM EST Reason for Call: elevated blood sugar of 304, disoriented, sob, 02 sat is 86-89% while using oxygen Outcome: Pt and her both advised to call 911 now. They both agree. Reason for Disposition Acting confused (e.g., disoriented, slurred speech) Protocols used: Diabetes - High Blood [id number] Pt reports her blood sugar was elevated [...] has oxygen on at 2 & 1/2 litersnow and her 02 sat is 86-89% . He feels pt seems disoriented. Pt states she normally knows the day.Pt and her are concerned pt was given [...] to call 911 now. documented in this encounterWadsworth-Rittman Hospital12-05-2022 Miscellaneous Notes* Telephone Encounter - Patricia Mora LPN - 06/21/2022 10:37 AM EST Last office visit: 05/18/22 Next appointment scheduled: 09/20/22 * Telephone Encounter - Payton Soliman - 06/21/2022 10:35 AM EST Patient has been identified by name and date of : Yes Requested Prescriptions Pending Prescriptions Disp Refills budesonide-formoterol (SYMBICORT) 160-4.5 mcg/actuation inhaler 1 Each 5 Sig: Inhale 2 Puffs as instructed twice daily. RX INSTRUCTIONS: Patient aware RX will be sent to pharmacy. No need to notify patient. Payton Soliman documented in this encounterWadsworth-Rittman Hospital11-21-2022 History of Present illness Narrative* Vladimir Kitchen - 06/07/2022 3:29 PM EST Pt chart reviewed as part of population health initiative focused on statin use in patients with diabetes (DM) or cardiovascular disease (CVD). Attila Kidd is identified through data from Medicare (insurer) [...] Unspecified asthma(493.90) 11/2013 PFTs. 09/2013 and 10/2013 Kezia. Vitamin D deficiency 08/21/2010 Cholesterol, Total (mg/dL) Date Value 12/24/2021 173 05/04/2021 180 HDL Cholesterol (mg/dL) Date Value 12/24/2021 54 05/04/2021 58 LDL Cholesterol (mg/dL) Date Value 12/24/2021 102 05/04/2021 105 Triglyceride (mg/dL) Date Value 12/24/2021 87 05/04/2021 84 Outcome of review: Potential exclusion Vladimir Kitchen Associated attestation - Narendra Nolasco [facility] - 06/07/2022 3:49 PM EST The patient's case was discussed with the student who saw the patient with me. Dumont elements of history confirmed during visit. Agree with findings and plan as outlined by the student. Patient with multiple history of statin intolerance. Reasonable to suspect that further statin trials would result in similar intolerance, despite potential benefit. Narendra Nolasco, PharmD, MEd, BCPS, CDCES documented in this encounterWadsworth-Rittman Hospital11-21-2022 Miscellaneous Notes* Telephone Encounter - Lydia Grande APRN.CNS - 06/07/2022 1:20 PM EST Noted, agree. Come in for visit if mild concerns. ER for any serious concerns advised. * Telephone Encounter - Pattie Giles RN - 06/07/2022 12:45 PM EST Patient calls with concerns that she had [...] questions/concerns. Pattie Giles RN documented in this encounterWadsworth-Rittman Hospital11-01-2022 Miscellaneous Notes* Telephone Encounter - Octavio Reza MD - 05/18/2022 9:56 AM EDT Ordered during appointment * Telephone Encounter - Parris Eckert RN - 05/14/2022 3:02 PM EDT Pt has an appointment with provider on 05/18/22. Pt is asking if provider wanted labs ordered. Please call Pt once labs are placed. documented in this encounterWadsworth-Rittman Hospital11-01-2022 History of Present illness Narrative* Octavio Reza MD - 05/18/2022 9:50 AM EDT This note was created using FotoIN Mobileter. Subjective Attila Kidd is a 76 year old female. Patient presents with: Follow Up SUBJECTIVE: Attila Kidd is a 76 year old year old lady here today for 4 month follow up appointment for review of medical conditions. Reviewed last labs overall were good. Overall doing well. Noted that right arm sometimes shoots throug\h it--happened when was lifting something[facility] Stopped using and did [...] Swelling overall controlled Follows with Dr. Marin (senior cisco network engineer) every 2 months. Has HCDPOA and LW. [...] Unspecified asthma(493.90) 11/2013 PFTs. 09/2013 and 10/2013 Kezia. Vitamin D deficiency 08/21/2010 Current Outpatient Medications Medication Sig zolpidem (AMBIEN) 5 mg tablet Take 0.5-1 tablets by mouth at bedtime as needed for up to 90 days. insulin aspart U-100 (NOVOLOG U-100 INSULIN ASPART) 100 unit/mL Inject 3-10 Units subcutaneously three times daily before meals. As directed blood sugar diagnostic (BLOOD GLUCOSE TEST) test strip Test blood sugar(s) 8 times daily--MedicallyNecessary for labile blood sugars (highs and lows). [...] N) Inject 15-20 Units subcutaneously daily with breakfast.Dispense 6 vials (3 months supply) budesonide-formoterol (SYMBICORT) 160-4.5 mcg/actuation inhaler Inhale 2 Puffs as instructed twice daily. ramipril (ALTACE) 10 mg capsule Take 1 capsule by mouth twice daily. Insulin [place], Disposable, (BD ULTRA-FINE FADY PEN NEEDLE) 32 [...] Height as of 09/21/21: 175.3 cm (5' 9). Weight as of 02/15/22: 153.8 kg (339 [...] 65+ Octavio Reza MD documented in this encounterWadsworth-Rittman Hospital09-17-2022 Miscellaneous Notes* Telephone Encounter - Pattie Giles RN - 04/03/2022 12:00 PM EDT See previous TE with same request for vials. Awaiting insurance authorization to dispense. Pattie Giles RN * Telephone Encounter - Rehana Beck Pss - 04/03/2022 11:52 AM EDT Patient call sent from [facility] as a refill, but when speaking with patient she said her late night shots with Humalin are a nightmare and would like to go back on vials. Please address this with patient.Call sent to triage nurse after speaking with patient. documented in this encounterWadsworth-Rittman Hospital09-17-2022 Miscellaneous Notes* Telephone Encounter - Latrell Medina RN - 04/03/2022 11:44 AM EDT Pt calling with request for a prescription for Humalog Vials. Patient denies any new or worsening symptoms of which a provider is not aware: Yes. Conference pt to Dr. Reza's office for senior administrative assistant with prescription. documented in this encounterWadsworth-Rittman Hospital09-14-2022 Miscellaneous Notes* Telephone Encounter - Octavio Reza MD - 03/31/2022 7:00 PM EDT The following approved medication requests have been [...] as directed Authorizing Provider: OCTAVIO REZA MD * Telephone Encounter - Parris Eckert RN - 03/31/2022 1:54 PM EDT [facility] and reports that Pts insurance will not cover the Humalog now they want Novolog. They are asking if the provider will send a new prescription. * Telephone Encounter - Asmita Tapia RN - 03/31/2022 8:07 AM EDT Patient has been identified by name and [...] you. Asmita Tapia RN documented in this encounterWadsworth-Rittman Hospital08-01-2022 Instructions* Patient Instructions* Lydia Grande APRN.[employer] - 02/15/2022 3:06 PM EDT Decrease caffeine intake. Drink plenty of fluids. Think about the CGM - continuous glucose monitor. documented in this encounterWadsworth-Rittman Hospital08-01-2022 History of Present illness Narrative* Lydia Grande APRN.CNS - 02/15/2022 2:40 PM EDT SUBJECTIVE: COVID-19 VACCINE(1) Never done DTAP,TDAP,TD(1 - Tdap) Never done ADVANCE DIRECTIVE DISCUSSION Never done DIABETIC FOOT EXAM due on 10/27/2021 HPI Attila Kidd is a 76 year old female. PMH [...] (Hcc) Stasis Edema of Both Lower Extremities Attila Kidd is a 76 year old female who [...] Both Lower Extremities She was seen at [facility] emergency department on February 11, 2022 for complaint of palpitations. She has past medical history of palpitations sinus bradycardia hypertension PACs, PVCs.Known history of diabetes with Charcot foot and hyperlipidemia. She noted palpitations but no chestpain shortness of breath or other cardiac symptoms. 2 caffeinated beverages daily at breakfast. No GI/ symptoms reported. Ectopics heard on exam. PACs noted on monitor and twelve-lead EKG. CBC within normal limits metabolic panel unremarkable. She was advised to follow-up with PCP as needed. Sees [facility] provider, Areli Estevez. HTN: She [...] HENT: Head: Normocephalic and atraumatic. Mouth/Throat: Lips: [place]. Mouth: Mucous membranes are moist. Eyes: Conjunctiva/sclera: [...] N) Inject 15-20 Units subcutaneously daily with breakfast.Dispense 6 vials (3 months supply) zolpidem (AMBIEN) 5 mg tablet Take 0.5-1 tablets by mouth at bedtime as needed for up to 90 days. budesonide-formoterol (SYMBICORT) 160-4.5 mcg/actuation inhaler Inhale 2 Puffs as instructed twice daily. ramipril (ALTACE) 10 mg capsule Take 1 capsule by mouth twice daily. blood sugar diagnostic (BLOOD GLUCOSE TEST) test strip Test blood sugar(s) 8 times daily--MedicallyNecessary for labile blood sugars (highs and lows). Dx: Other DM Code E10.8, E11.610 Insulin: Yes Insulin [place], Disposable, (BD ULTRA-FINE FADY PEN NEEDLE) 32 [...] Unspecified asthma(493.90) 11/2013 PFTs. 09/2013 and 10/2013 Kezia. Vitamin D deficiency 08/21/2010 Social History Tobacco [...] monitor. Lydia Grande APRN.MADELIN documented in this encounterWadsworth-Rittman [facility]07-28-2022 Miscellaneous Notes* Telephone Encounter - Octavio Reza MD - 02/11/2022 1:55 PM EDT Noted Reasonable for her to have her scientific process operator decide on plan of care for noted symptoms. * Telephone Encounter - Cesar Brush LPN - 02/11/2022 1:34 PM EDT Patient calling said she is short of breath, used her inhaler and did not really help at all. Patient said her heart just does not feel right, thought was having palpitations, wants to have EKG done.Her blood pressure this morning was 140/71 and pulse 60, her SPO2 was 92%. She had only taken half of her Amlodipine 10 mg tablet today. Advised patient needs to go to ER for evaluation. Patient saidshe was going to call Rate Manager office, Dr Lott before she would go to the ER. documented in this encounterWadsworth-Rittman [facility]07-07-2022 Miscellaneous Notes* Telephone Encounter - Ritika Lopez LPN - 01/21/2022 4:12 PM EDT Order faxed to [facility] scheduling. * Telephone Encounter - Lydia Grande APRN.CNS - 01/21/2022 4:06 PM EDT ok * Telephone Encounter - Darlene Mena RN - 01/20/2022 11:27 AM EDT Patient calls and is asking about mammogram order. Please place order and fax to [facility]. Please review and advise, Darlene Mena RN documented in this encounterWadsworth-Rittman [facility]06-27-2022 History of Present illness Narrative* Octavio Reza MD - 01/11/2022 3:15 PM EDT Images from the original note were not included. This note was created using DAQRIriter. Subjective Attila Kidd is a 76 year old female. Patient presents with: Follow Up SUBJECTIVE: Attila Kidd is a 76 year old year old [...] had lost a lot of weight since 2018. Stopped that Prilosec for about a month. [...] Unspecified asthma(493.90) 11/2013 PFTs. 09/2013 and 10/2013 Kezia. Vitamin D deficiency 08/21/2010 Current Outpatient Medications [...] test strip Test blood sugar(s) 8 times daily--MedicallyNecessary for labile blood sugars (highs and lows). [...] Lantus, not Basaglar per patient preference Insulin [place], Disposable, (BD ULTRA-FINE FADY PEN NEEDLE) 32 [...] Height as of 09/21/21: 175.3 cm (5' 9). Weight as of this encounter: 153.3 kg [...] TABLET Octavio Reza MD documented in this encounterWadsworth-Rittman [facility]06-08-2022 History of Present illness Narrative* Guillermo Maurer MD - 12/23/2021 4:28 PM EDT This note was created using DAQRIriter. Subjective Patient presents with: Abdominal Pain PCP Octavio Reza MD Attila Forresteringer was here per CC. Abdominal pain is located upper abdomen with radiation to both flanks present for 2-3 weeks and is waxing and waning. It started when she ate salsa on a relatively empty stomach which caused burning. Other symptoms were nausea with no vomiting. She's had diarrhea andconstipation, and was afraid to take anything for fear of constipation. She's had a cholecystectomyand she takes Prilosec OTC routinely for hiatal [...] test strip Test blood sugar(s) 8 times daily--MedicallyNecessary for labile blood sugars (highs and lows). [...] Lantus, not Basaglar per patient preference Insulin [place], Disposable, (BD ULTRA-FINE FADY PEN NEEDLE) 32 [...] by mouth four times daily. 1tsp swish inmouth for several minutes, then swallow (or expectorate) 4 times daily until gone. (Patient not taking: Reported on 12/23/2021 ) fluticasone (FLONASE) 50 mcg/actuation nasal spray Use 1 [place] in each nostril once daily. (Patientnot taking: Reported on 12/23/2021 ) aspirin, enteric [...] recommendations. Guillermo Maurer MD documented in this encounterWadsworth-Rittman Hospital06-02-2022 Instructions* Patient Instructions* Kristyn Flores - 12/17/2021 1:22 PM EDT [...] Place ice in a plastic bag and separateit from the skin with a thin towel. Hold it against the joint with your hand or an elastic bandage.Keep the ice pack on the joint up [...] bruising increases, despite treatment. Copyright 1994 by [employer] Concierge documented in this encounterWadsworth-Rittman Hospital06-02-2022 History of Present illness Narrative* Wanda Phillips APRN.PLATE SLITTER AND INSPECTOR - 12/17/2021 1:12 PM EDT Subjective Attila Kidd is a 76 year old female who [...] history is provided by the patient. No manager language was used. Arm Pain The pain is present in the right arm. This is a new problem. The current episode started today. Theproblem occurs constantly. The problem has been unchanged. [...] Unspecified asthma(493.90) 11/2013 PFTs. 09/2013 and 10/2013 Kezia. Vitamin D deficiency 08/21/2010 PAST SURGICAL HISTORY [...] by mouth four times daily. 1tsp swish inmouth for several minutes, then swallow (or expectorate) 4 times daily until gone. fluconazole (DIFLUCAN) 100 mg tablet Take 2 tablets on day 1, then 1 tablet for 3 days. ramipril (ALTACE) 10 mg capsule Take 1 capsule by mouth twice daily. fluticasone (FLONASE) 50 mcg/actuation nasal spray Use 1 [place] in each nostril once daily. blood sugar diagnostic (BLOOD GLUCOSE TEST) test strip Test blood sugar(s) 8 times daily--MedicallyNecessary for labile blood sugars (highs and lows). [...] Lantus, not Basaglar per patient preference Insulin [place], Disposable, (BD ULTRA-FINE FADY PEN NEEDLE) 32 [...] AP/LAT RIGHT Radiologist IMPRESSION: No acute process. 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: EVIE Transcribe Date/Time: Dec 17 2021 1:44P Dictated by : CESAR REYES MD - X-ray is negative for fracture. - Wear compression wrap and sling as needed for comfort. May remove at night. - Take Ibuprofen as needed for pain. - Follow up with orthopedics if pain worsens or persists past 3 days. - CONSULT PANEL TO ORTHOPAEDICS RENATA Prado student TEACHING PROVIDER (Physician/PA/CLINICAL LAW PROFESSOR) NOTE OF PERSONAL INVOLVEMENT IN CARE: I have personally seen and examined the patient and performed the medical decision-making components. I have reviewed the Advanced Practice Registered Nurse (CLINICAL LAW PROFESSOR) Student's documentation and verified the findings in the note as written. Any additions or changes are noted in bold/italics. Signature: Wanda Phillips Date: 12/17/2021 Time: 2:06 PM documented in this encounterWadsworth-Rittman Hospital06-02-2022 Miscellaneous Notes* Telephone Encounter - Lydia Grande APRN.INSIDE H[employer]ICULTURAL [employer]TY GROWER - 12/17/2021 12:55 PM EDT noted, agree should be seen * Telephone Encounter - Rochelle Hoyt RN - 12/17/2021 12:08 PM EDT Patient calling with request for an x ray of her arm. She states she strained her upper arm when she lifted a heavy pot of water. She feels pain in the bicep area of her right arm. Advised Urgent Care evaluation. She is agreeable. Rochelle Hoyt RN documented in this encounterWadsworth-Rittman Hospital06-01-2022 History of Present illness Narrative* RT Lia(R) - 12/16/2021 9:40 AM EDT Radiology Service Progress Note PATIENT NAME: Attila Kidd DATE OF SERVICE: December 16, 2021 TIME: 9:40 AM PATIENT IDENTITY VERIFICATION COMPLETED USING TWO (2) IDENTIFIERS: Name and Date of confirmedby patient verbally. FALL SCREENING: Has the patient had 2 falls in the last year or 1 fall with injury or currently using an Ambulatory Assistive Device (Walker, Cane, Wheelchair, Crutches, etc.)? Yes, Patient High Riskfor Falls What interventions were put in place [...] 16, 2021 9:40 AM documented in this encounterWadsworth-Rittman Hospital06-01-2022 Miscellaneous Notes* Telephone Encounter - Eleni Serrano LPN - 12/16/2021 8:26 AM EDT Verified name and date of . Patient phones requesting refills as follows: Pending Prescriptions Disp Refills BUDESONIDE-FORMOTEROL HFA 160 MCG-4.5 MCG/ACTUATION AEROSOL INHALER 1 Each 5 Sig: Inhale 2 Puffs as instructed twice daily. VITALY: No Verified pharmacy to be reordered at. Please review and advise. Eleni Serrano LPN documented in this encounterWadsworth-Rittman Hospital05-20-2022 Miscellaneous Notes* Telephone Encounter - Lydia Grande APRN.CNS - 12/04/2021 1:56 PM EDT Noted, agree should see eye doctor today if possible * Telephone Encounter - Sahara Moreno RN - 12/04/2021 12:36 PM EDT Patient reports her eyes have been itching for several days, and she has been rubbing them. Today the left eye looks like it's bleeding. Whole white of eye is covered with red. No drainage from eye. Concern b/c she is diabetic and takes BP medication. BS this morning was 142. Will check BP and thencall eye doctor, and if needs pcp will call back. documented in this encounterWadsworth-Rittman Hospital04-22-2022 Miscellaneous Notes* Telephone Encounter - Karina Jackson LPN - 11/06/2021 10:20 AM EDT Spoke to Dr Carmichael and updated patient on results, To repeat colonoscopy in 5 years. * Telephone Encounter - Karina Jackson LPN - 11/06/2021 8:10 AM EDT Patient called asking for results from colonoscopy. [phone] documented in this encounterWadsworth-Rittman Hospital04-14-2022 Nurse Note* Dafne Santana RN - 10/29/2021 8:40 AM EDT Abdomen soft non-distended. Will continue to monitor. * Amanda Santiago RN - 10/29/2021 8:04 AM EDT [facility]OP NURSING HAND OFF NOTE SBAR Hand off given to Eris Mena RN. Hand off was communicated verbally and at the patient's bedside and all questions were answered. Amanda Santiago RN documented in this encounterWadsworth-Rittman Hospital04-14-2022 History and physical note * Holland Carmichael MD - 10/29/2021 8:00 AM EDT Images from the original note were not included. HISTORY AND PHYSICAL Attila Kidd 1945 REFERRING PHYSICIAN: Octavio Reza MD CHIEF COMPLAINT: Consult (colonoscopy screening) HPI: The patient is a 76 year old female referred for endoscopy. Attila notes no history of colon complaints. The patient notes no history of upper GI complaints. Attila has undergone prior endoscopy. 2010 The patient [...] Unspecified asthma(493.90) 11/2013 PFTs. 09/2013 and 10/2013 Kezia. Vitamin D deficiency 08/21/2010 PAST SURGICAL HISTORY [...] by mouth four times daily. 1tsp swish inmouth for several minutes, then swallow (or expectorate) [...] (FLONASE) 50 mcg/actuation nasal spray Use 1 [place] in each nostril once daily. blood sugar diagnostic (BLOOD GLUCOSE TEST) test strip Test blood sugar(s) 8 times daily--MedicallyNecessary for labile blood sugars (highs and lows). [...] Lantus, not Basaglar per patient preference Insulin [place], Disposable, (BD ULTRA-FINE FADY PEN NEEDLE) 32 [...] nourished, well hydrated in no acute distress. Thepatient is oriented to time, place, and person. VITALS: Blood pressure 150/80, pulse 65, temperature 36.2 C (97.1 F), height 175.3 cm (5' 9), weight (!) 156.7 kg (345 lb 6.4 oz), SpO2 98 %. Body mass index is 51.01 kg/m . HEENT: Normal cephalic, ataumatic, pupils are equally round, sclera are anicteric, mucous membranesare moist, oropharynx is clear. Neck has no [...] surgeon/proceduralist and patient have discussed in detail therisk of exposure to and/or potential harm posed by the COVID-19 virus with having a surgery/procedure at this time versus the risk of delaying the surgery/procedure. It is not possible to know eitherthe risk of delaying the surgery or procedure [...] has been reviewed and the patient has beenexamined. The contents accurately reflect the patient's condition with the following additions or revisions since the H&P was completed. Examination indicates no changes. This H&P can be found in the attached. SIGNATURE: Holland Carmichael III, MD PATIENT NAME: Attila Kidd DATE: October 29, 2021 TIME: 7:53 AM documented in this encounterWadsworth-Rittman Hospital04-12-2022 Miscellaneous Notes* Telephone Encounter - CHRISTOPHER Sosa - 10/27/2021 4:43 PM EDT Spoke with patient on telephone. Patient verbalizes understanding of providers instructions. CHRISTOPHER Sosa * Telephone Encounter - Lydia Grande APRN.MADELIN - 10/27/2021 4:32 PM EDT Her BP was addressed in another encounter earlier today. If she notes a SBP greater than 150 today or tomorrow she should take an additional one half tabletof amlodipine 5 mg - additional 2.5 mg. * Telephone Encounter - Rakel Agosto LPN - 10/27/2021 3:40 PM EDT Pt had called yesterday concerning blood pressure readings and having colonoscopy. Pt was advised her bp readings were good enough that she could still get colonoscopy. Pt reports last night she felt like she had a hot flash and took bp and it was 191/89 then a littlelater it was 165/93. Pt reports today she [...] high. Rakel Agosto LPN documented in this encounterWadsworth-Rittman Hospital04-12-2022 Miscellaneous Notes* Telephone Encounter - Lydia Grande APRN.CNS - 10/27/2021 3:47 PM EDT noted, recent BPs were in acceptable range * Telephone Encounter - Shin Garay - 10/27/2021 3:32 PM EDT spoke with patient, she would like to hold off on cancelling to see how tomorrow goes. Her blood pressure skyrocketed but really wants to get this colonoscopy complete, Spoke with Dr Carmichael and he stated the blood pressures were ok to have this complete Shin Garay * Telephone Encounter - Radha Lacy RN - 10/27/2021 3:16 PM EDT Attila called. She has a colonoscopy scheduled with Dr. Carmichael on 10/29/2021. She is concerned because her blood pressures have been running high. At her colonoscopy consultation, Dr. Carmichael stated that if her blood pressures are high the day of the procedure, he will have to cancel the appointment. Attila sent her blood pressure reading to Dr. Reza, who reviewed them and did not see any problems with any of the readings and advised that she should move forward with the procedure. Attila also states that she was on clear liquids yesterday and she is not feeling well. She states that she is nauseated. Attila also has concerned because when she has diarrhea, her blood sugar bottom's out. At this time, she wants to cancel the colonoscopy, until her blood pressures are under better control. Please call to reschedule. Radha Lacy RN documented in this encounterWadsworth-Rittman Hospital04-11-2022 Miscellaneous Notes* Telephone Encounter - Ritika Lopez LPN - 10/26/2021 2:13 PM EDT Patient was notified of providers message and verbalized understanding. Patient is aware the BP readings also went to Dr. Carmichael as well. * Telephone Encounter - Lydia Grande APRN.MADELIN - 10/26/2021 12:11 PM EDT Below noted. The BP numbers reported below would not cause her to need to reschedule. * Telephone Encounter - Cayla Lynne LPN - 10/26/2021 8:10 AM EDT Pt called and states her BP has been running high and she was told by Dr. Carmichael if her BP is highon 10-29-21 day of her colonoscopy he will not do the scope. Pt states her BP has been running high see below: 3- AM 129/68 PM 155/86 318- Am 168/88 PM 149/78 3 Am 149/75 PM 159/79 3- AM 154/85 PM 149/81 3-- AM 136/72 PM 143/67 3-- AM 144/70 PM 157/82 3--22 AM 144/74 PM 155/78 324-22 AM 149/78 PM 158/83 3-- AM 150/81 PM 147/80 3-- AM 157/78 3-- AM 154/80 PM 158/87 4-3- AM 161/84 PM 152/83 4-4-22 AM 144/77 PM 151/81 4-5-22 AM 150/89 PM 158/89 4-6-22 AM 61/85 PM 153/81 4-7-22 AM 145/79 PM 150/80 4-- AM 140/83 Missed a few days above. Pt would like to know if she can increase medication now before her scope to get her numbers lower.She is afraid with her BP above he is going to cancel day of test after she has prepped and gets inthere. Please advise pt today if possible. Cayla Lynne LPN documented in this encounterWadsworth-Rittman Hospital04-11-2022 Miscellaneous Notes* Telephone Encounter - Cayla Lynne LPN - 10/26/2021 8:09 AM EDT Spoke with pt and information listed below given. Pt verbalizes understanding. Cayla Lynne LPN * Telephone Encounter - Octavio Reza MD - 10/25/2021 2:49 PM EDT If no problems with low sugars, may [...] Humalog taken depends on whether able to getthe same number of carbs from the liquids she is drinking as she would have with her regular diet. If not able able, then can hold or at least lower Humalog dose as she normally does with her SSI. If has had lows, then can lower Lantus from 27 units down to 20 to 22 units depending on how low she has been getting. * Telephone Encounter - Asmita Tapia RN - 10/21/2021 3:12 PM EDT Patient states she has a colonoscopy scheduled for 09/30/21 and reports she was to contact her PCP for instructions for her diabetic insulins/medications prior to procedure. Please advise patient. PH: [phone]. Thank you. documented in this encounterWadsworth-Rittman Hospital04-07-2022 Miscellaneous Notes* Telephone Encounter - Asmita Tapia RN - 10/22/2021 8:06 AM EDT Patient has been identified by name and [...] you. Asmita Tapia RN documented in this encounterWadsworth-Rittman Hospital03-08-2022 Miscellaneous Notes* Telephone Encounter - Shin Garay - 09/22/2021 9:54 AM EST 10-29-2021 [facility] documented in this encounterWadsworth-Rittman Hospital02-25-2022 History of Present illness Narrative* Octavio Reza MD - 09/11/2021 11:26 AM EST This note was created using DAQRIriter. Subjective Attila Kidd is a 76 year old female. Patient presents with: Follow Up SUBJECTIVE: Attila Kidd is a 76 year old year old [...] Unspecified asthma(493.90) 11/2013 PFTs. 09/2013 and 10/2013 Kezia. Vitamin D deficiency 08/21/2010 Current Outpatient Medications Medication Sig aspirin, enteric coated (ASPIRIN, ENTERIC COATED) 81 mg EC tablet Take 1 tablet by mouth once daily. (Patient taking differently: Take 81 mg by mouth once daily. 3 daily ) nystatin (MYCOSTATIN) 100,000 unit/mL suspension Take 5 mL by mouth four times daily. 1tsp swish inmouth for several minutes, then swallow (or expectorate) [...] (FLONASE) 50 mcg/actuation nasal spray Use 1 [place] in each nostril once daily. blood sugar diagnostic (BLOOD GLUCOSE TEST) test strip Test blood sugar(s) 8 times daily--MedicallyNecessary for labile blood sugars (highs and lows). [...] Lantus, not Basaglar per patient preference Insulin [place], Disposable, (BD ULTRA-FINE FADY PEN NEEDLE) 32 [...] lifestyle changes for effective weight loss as wellas control of DM, and control of BP [...] SURGERY Octavio Reza MD documented in this encounterWadsworth-Rittman Hospital10-25-2021 History of Past illness Narrative* Problem Noted Date Resolved Date OVERWEIGHT 05/11/2021 Last Assessment & Plan: Has made dietary changes since recent hospitalization, decreased carbs, feels better, plans to work harder on wt loss. Getting 3 wheeled bike so she can go on trails, not just exercise bike indoors. documented as of this encounter (statuses as of 10/22/2021) [facility] History of Past illness Narrative* Problem Noted Date Resolved Date OVERWEIGHT 05/11/2021 Last Assessment & Plan: Has made dietary changes since recent hospitalization, decreased carbs, feels better, plans to work harder on wt loss. Getting 3 wheeled bike so she can go on trails, not just exercise bike indoors. documented as of this encounter (statuses as of 10/26/2021) [facility] of Past illness Narrative* Problem Noted Date Resolved Date OVERWEIGHT 05/11/2021 Last Assessment & Plan: Has made dietary changes since recent hospitalization, decreased carbs, feels better, plans to work harder on wt loss. Getting 3 wheeled bike so she can go on trails, not just exercise bike indoors. documented as of this encounter (statuses as of 10/27/2021) [facility] of Past illness Narrative* Problem Noted Date Resolved Date OVERWEIGHT 05/11/2021 Last Assessment & Plan: Has made dietary changes since recent hospitalization, decreased carbs, feels better, plans to work harder on wt loss. Getting 3 wheeled bike so she can go on trails, not just exercise bike indoors. documented as of this encounter (statuses as of 10/30/2021) [facility] History of Past illness Narrative* Problem Noted Date Resolved Date OVERWEIGHT 05/11/2021 Last Assessment & Plan: Has made dietary changes since recent hospitalization, decreased carbs, feels better, plans to work harder on wt loss. Getting 3 wheeled bike so she can go on trails, not just exercise bike indoors. documented as of this encounter (statuses as of 11/02/2021) [facility] of Past illness Narrative* Problem Noted Date Resolved Date OVERWEIGHT 05/11/2021 Last Assessment & Plan: Has made dietary changes since recent hospitalization, decreased carbs, feels better, plans to work harder on wt loss. Getting 3 wheeled bike so she can go on trails, not just exercise bike indoors. documented as of this encounter (statuses as of 11/06/2021) [facility] of Past illness Narrative* Problem Noted Date Resolved Date OVERWEIGHT 05/11/2021 Last Assessment & Plan: Has made dietary changes since recent hospitalization, decreased carbs, feels better, plans to work harder on wt loss. Getting 3 wheeled bike so she can go on trails, not just exercise bike indoors. documented as of this encounter (statuses as of 12/07/2021) [facility] of Past illness Narrative* Problem Noted Date Resolved Date OVERWEIGHT 05/11/2021 Last Assessment & Plan: Has made dietary changes since recent hospitalization, decreased carbs, feels better, plans to work harder on wt loss. Getting 3 wheeled bike so she can go on trails, not just exercise bike indoors. documented as of this encounter (statuses as of 12/16/2021) [facility] of Past illness Narrative* Problem Noted Date Resolved Date OVERWEIGHT 05/11/2021 Last Assessment & Plan: Has made dietary changes since recent hospitalization, decreased carbs, feels better, plans to work harder on wt loss. Getting 3 wheeled bike so she can go on trails, not just exercise bike indoors. documented as of this encounter (statuses as of 12/16/2021) [facility] of Past illness Narrative* Problem Noted Date Resolved Date OVERWEIGHT 05/11/2021 Last Assessment & Plan: Has made dietary changes since recent hospitalization, decreased carbs, feels better, plans to work harder on wt loss. Getting 3 wheeled bike so she can go on trails, not just exercise bike indoors. documented as of this encounter (statuses as of 12/17/2021) [facility] of Past illness Narrative* Problem Noted Date Resolved Date OVERWEIGHT 05/11/2021 Last Assessment & Plan: Has made dietary changes since recent hospitalization, decreased carbs, feels better, plans to work harder on wt loss. Getting 3 wheeled bike so she can go on trails, not just exercise bike indoors. documented as of this encounter (statuses as of 12/17/2021) [facility] of Past illness Narrative* Problem Noted Date Resolved Date OVERWEIGHT 05/11/2021 Last Assessment & Plan: Has made dietary changes since recent hospitalization, decreased carbs, feels better, plans to work harder on wt loss. Getting 3 wheeled bike so she can go on trails, not just exercise bike indoors. documented as of this encounter (statuses as of 12/17/2021) [facility] of Past illness Narrative* Problem Noted Date Resolved Date OVERWEIGHT 05/11/2021 Last Assessment & Plan: Has made dietary changes since recent hospitalization, decreased carbs, feels better, plans to work harder on wt loss. Getting 3 wheeled bike so she can go on trails, not just exercise bike indoors. documented as of this encounter (statuses as of 12/24/2021) [facility] of Past illness Narrative* Problem Noted Date Resolved Date OVERWEIGHT 05/11/2021 Last Assessment & Plan: Has made dietary changes since recent hospitalization, decreased carbs, feels better, plans to work harder on wt loss. Getting 3 wheeled bike so she can go on trails, not just exercise bike indoors. documented as of this encounter (statuses as of 01/04/2022) [facility] of Past illness Narrative* Problem Noted Date Resolved Date OVERWEIGHT 05/11/2021 Last Assessment & Plan: Has made dietary changes since recent hospitalization, decreased carbs, feels better, plans to work harder on wt loss. Getting 3 wheeled bike so she can go on trails, not just exercise bike indoors. documented as of this encounter (statuses as of 01/21/2022) [facility]10-25-2021 History of Past illness Narrative* Problem Noted Date Resolved Date OVERWEIGHT 05/11/2021 Last Assessment & Plan: Has made dietary changes since recent hospitalization, decreased carbs, feels better, plans to work harder on wt loss. Getting 3 wheeled bike so she can go on trails, not just exercise bike indoors. documented as of this encounter (statuses as of 02/11/2022) [facility]10-25-2021 History of Past illness Narrative* Problem Noted Date Resolved Date OVERWEIGHT 05/11/2021 Last Assessment & Plan: Has made dietary changes since recent hospitalization, decreased carbs, feels better, plans to work harder on wt loss. Getting 3 wheeled bike so she can go on trails, not just exercise bike indoors. documented as of this encounter (statuses as of 02/15/2022) [facility]2021 History of Past illness Narrative* Problem Noted Date Resolved Date OVERWEIGHT 05/11/2021 Last Assessment & Plan: Has made dietary changes since recent hospitalization, decreased carbs, feels better, plans to work harder on wt loss. Getting 3 wheeled bike so she can go on trails, not just exercise bike indoors. documented as of this encounter (statuses as of 03/14/2022) [facility]2021 History of Past illness Narrative* Problem Noted Date Resolved Date OVERWEIGHT 05/11/2021 Last Assessment & Plan: Has made dietary changes since recent hospitalization, decreased carbs, feels better, plans to work harder on wt loss. Getting 3 wheeled bike so she can go on trails, not just exercise bike indoors. documented as of this encounter (statuses as of 04/01/2022) [facility]2021 History of Past illness Narrative* Problem Noted Date Resolved Date OVERWEIGHT 05/11/2021 Last Assessment & Plan: Has made dietary changes since recent hospitalization, decreased carbs, feels better, plans to work harder on wt loss. Getting 3 wheeled bike so she can go on trails, not just exercise bike indoors. documented as of this encounter (statuses as of 04/03/2022) [facility] History of Past illness Narrative* Problem Noted Date Resolved Date OVERWEIGHT 05/11/2021 Last Assessment & Plan: Has made dietary changes since recent hospitalization, decreased carbs, feels better, plans to work harder on wt loss. Getting 3 wheeled bike so she can go on trails, not just exercise bike indoors. documented as of this encounter (statuses as of 05/18/2022) [facility] History of Past illness Narrative* Problem Noted Date Resolved Date OVERWEIGHT 05/11/2021 Last Assessment & Plan: Has made dietary changes since recent hospitalization, decreased carbs, feels better, plans to work harder on wt loss. Getting 3 wheeled bike so she can go on trails, not just exercise bike indoors. documented as of this encounter (statuses as of 06/07/2022) [facility] History of Past illness Narrative* Problem Noted Date Resolved Date OVERWEIGHT 05/11/2021 Last Assessment & Plan: Has made dietary changes since recent hospitalization, decreased carbs, feels better, plans to work harder on wt loss. Getting 3 wheeled bike so she can go on trails, not just exercise bike indoors. documented as of this encounter (statuses as of 06/07/2022) [facility] History of Past illness Narrative* Problem Noted Date Resolved Date OVERWEIGHT 05/11/2021 Last Assessment & Plan: Has made dietary changes since recent hospitalization, decreased carbs, feels better, plans to work harder on wt loss. Getting 3 wheeled bike so she can go on trails, not just exercise bike indoors. documented as of this encounter (statuses as of 06/14/2022) [facility] History of Past illness Narrative* Problem Noted Date Resolved Date OVERWEIGHT 05/11/2021 Last Assessment & Plan: Has made dietary changes since recent hospitalization, decreased carbs, feels better, plans to work harder on wt loss. Getting 3 wheeled bike so she can go on trails, not just exercise bike indoors. documented as of this encounter (statuses as of 06/21/2022) [facility] History of Past illness Narrative* Problem Noted Date Resolved Date OVERWEIGHT 05/11/2021 Last Assessment & Plan: Has made dietary changes since recent hospitalization, decreased carbs, feels better, plans to work harder on wt loss. Getting 3 wheeled bike so she can go on trails, not just exercise bike indoors. documented as of this encounter (statuses as of 07/22/2022) [facility] History of Past illness Narrative* Problem Noted Date Resolved Date OVERWEIGHT 05/11/2021 Last Assessment & Plan: Has made dietary changes since recent hospitalization, decreased carbs, feels better, plans to work harder on wt loss. Getting 3 wheeled bike so she can go on trails, not just exercise bike indoors. documented as of this encounter (statuses as of 07/27/2022) [facility] History of Past illness Narrative* Problem Noted Date Resolved Date OVERWEIGHT 05/11/2021 Last Assessment & Plan: Has made dietary changes since recent hospitalization, decreased carbs, feels better, plans to work harder on wt loss. Getting 3 wheeled bike so she can go on trails, not just exercise bike indoors. documented as of this encounter (statuses as of 07/28/2022) [facility] History of Past illness Narrative* Problem Noted Date Resolved Date OVERWEIGHT 05/11/2021 Last Assessment & Plan: Has made dietary changes since recent hospitalization, decreased carbs, feels better, plans to work harder on wt loss. Getting 3 wheeled bike so she can go on trails, not just exercise bike indoors. documented as of this encounter (statuses as of 07/28/2022) [facility] History of Past illness Narrative* Problem Noted Date Resolved Date OVERWEIGHT 05/11/2021 Last Assessment & Plan: Has made dietary changes since recent hospitalization, decreased carbs, feels better, plans to work harder on wt loss. Getting 3 wheeled bike so she can go on trails, not just exercise bike indoors. documented as of this encounter (statuses as of 07/29/2022) [facility] History of Past illness Narrative* Problem Noted Date Resolved Date OVERWEIGHT 05/11/2021 Last Assessment & Plan: Has made dietary changes since recent hospitalization, decreased carbs, feels better, plans to work harder on wt loss. Getting 3 wheeled bike so she can go on trails, not just exercise bike indoors. documented as of this encounter (statuses as of 2022) [facility] History of Past illness Narrative* Problem Noted Date Resolved Date OVERWEIGHT 05/11/2021 Last Assessment & Plan: Has made dietary changes since recent hospitalization, decreased carbs, feels better, plans to work harder on wt loss. Getting 3 wheeled bike so she can go on trails, not just exercise bike indoors. documented as of this encounter (statuses as of 08/23/2022) [facility] History of Past illness Narrative* Problem Noted Date Resolved Date OVERWEIGHT 05/11/2021 Last Assessment & Plan: Has made dietary changes since recent hospitalization, decreased carbs, feels better, plans to work harder on wt loss. Getting 3 wheeled bike so she can go on trails, not just exercise bike indoors. documented as of this encounter (statuses as of 09/01/2022) [facility] History of Past illness Narrative* Problem Noted Date Resolved Date OVERWEIGHT 05/11/2021 Last Assessment & Plan: Has made dietary changes since recent hospitalization, decreased carbs, feels better, plans to work harder on wt loss. Getting 3 wheeled bike so she can go on trails, not just exercise bike indoors. documented as of this encounter (statuses as of 09/02/2022) [facility] History of Past illness Narrative* Problem Noted Date Resolved Date OVERWEIGHT 05/11/2021 Last Assessment & Plan: Has made dietary changes since recent hospitalization, decreased carbs, feels better, plans to work harder on wt loss. Getting 3 wheeled bike so she can go on trails, not just exercise bike indoors. documented as of this encounter (statuses as of 09/08/2022) [facility] History of Past illness Narrative* Problem Noted Date Resolved Date OVERWEIGHT 05/11/2021 Last Assessment & Plan: Has made dietary changes since recent hospitalization, decreased carbs, feels better, plans to work harder on wt loss. Getting 3 wheeled bike so she can go on trails, not just exercise bike indoors. documented as of this encounter (statuses as of 09/14/2022) [facility] History of Past illness Narrative* Problem Noted Date Resolved Date OVERWEIGHT 05/11/2021 Last Assessment & Plan: Has made dietary changes since recent hospitalization, decreased carbs, feels better, plans to work harder on wt loss. Getting 3 wheeled bike so she can go on trails, not just exercise bike indoors. documented as of this encounter (statuses as of 09/20/2022) [facility] History of Past illness Narrative* Problem Noted Date Resolved Date OVERWEIGHT 05/11/2021 Last Assessment & Plan: Has made dietary changes since recent hospitalization, decreased carbs, feels better, plans to work harder on wt loss. Getting 3 wheeled bike so she can go on trails, not just exercise bike indoors. documented as of this encounter (statuses as of 09/21/2022) [facility] History of Past illness Narrative* Problem Noted Date Resolved Date OVERWEIGHT 05/11/2021 Last Assessment & Plan: Has made dietary changes since recent hospitalization, decreased carbs, feels better, plans to work harder on wt loss. Getting 3 wheeled bike so she can go on trails, not just exercise bike indoors. documented as of this encounter (statuses as of 09/27/2022) [facility] History of Past illness Narrative* Problem Noted Date Resolved Date OVERWEIGHT 05/11/2021 Last Assessment & Plan: Has made dietary changes since recent hospitalization, decreased carbs, feels better, plans to work harder on wt loss. Getting 3 wheeled bike so she can go on trails, not just exercise bike indoors. documented as of this encounter (statuses as of 10/01/2022) [facility] History of Past illness Narrative* Problem Noted Date Resolved Date OVERWEIGHT 05/11/2021 Last Assessment & Plan: Has made dietary changes since recent hospitalization, decreased carbs, feels better, plans to work harder on wt loss. Getting 3 wheeled bike so she can go on trails, not just exercise bike indoors. documented as of this encounter (statuses as of 10/01/2022) [facility] History of Past illness Narrative* Problem Noted Date Resolved Date OVERWEIGHT 05/11/2021 Last Assessment & Plan: Has made dietary changes since recent hospitalization, decreased carbs, feels better, plans to work harder on wt loss. Getting 3 wheeled bike so she can go on trails, not just exercise bike indoors. documented as of this encounter (statuses as of 10/05/2022) [facility] History of Past illness Narrative* Problem Noted Date Resolved Date OVERWEIGHT 05/11/2021 Last Assessment & Plan: Has made dietary changes since recent hospitalization, decreased carbs, feels better, plans to work harder on wt loss. Getting 3 wheeled bike so she can go on trails, not just exercise bike indoors. documented as of this encounter (statuses as of 10/07/2022) [facility] History of Past illness Narrative* Problem Noted Date Diagnosed Date Resolved Date OVERWEIGHT 05/11/2021 Last Assessment & Plan: Has made dietary changes since recent hospitalization, decreased carbs, feels better, plans to work harder on wt loss. Getting 3 wheeled bike so she can go on trails, not just exercise bike indoors. documented as of this encounter (statuses as of 02/21/2023) [facility] History of Past illness Narrative* Problem Noted Date Diagnosed Date Resolved Date OVERWEIGHT 05/11/2021 Last Assessment & Plan: Has made dietary changes since recent hospitalization, decreased carbs, feels better, plans to work harder on wt loss. Getting 3 wheeled bike so she can go on trails, not just exercise bike indoors. documented as of this encounter (statuses as of 02/21/2023) [facility] History of Past illness Narrative* Problem Noted Date Diagnosed Date Resolved Date OVERWEIGHT 05/11/2021 Last Assessment & Plan: Has made dietary changes since recent hospitalization, decreased carbs, feels better, plans to work harder on wt loss. Getting 3 wheeled bike so she can go on trails, not just exercise bike indoors. documented as of this encounter (statuses as of 03/01/2023) [facility] History of Past illness Narrative* Problem Noted Date Diagnosed Date Resolved Date OVERWEIGHT 05/11/2021 Last Assessment & Plan: Has made dietary changes since recent hospitalization, decreased carbs, feels better, plans to work harder on wt loss. Getting 3 wheeled bike so she can go on trails, not just exercise bike indoors. documented as of this encounter (statuses as of 05/16/2023) [facility] History of Past illness Narrative* Problem Noted Date Diagnosed Date Resolved Date OVERWEIGHT 05/11/2021 Last Assessment & Plan: Has made dietary changes since recent hospitalization, decreased carbs, feels better, plans to work harder on wt loss. Getting 3 wheeled bike so she can go on trails, not just exercise bike indoors. documented as of this encounter (statuses as of 06/15/2023) [facility] History of Past illness Narrative* Problem Noted Date Diagnosed Date Resolved Date OVERWEIGHT 05/11/2021 Last Assessment & Plan: Has made dietary changes since recent hospitalization, decreased carbs, feels better, plans to work harder on wt loss. Getting 3 wheeled bike so she can go on trails, not just exercise bike indoors. documented as of this encounter (statuses as of 06/23/2023) [facility] History of Past illness Narrative* Problem Noted Date Diagnosed Date Resolved Date OVERWEIGHT 05/11/2021 Last Assessment & Plan: Has made dietary changes since recent hospitalization, decreased carbs, feels better, plans to work harder on wt loss. Getting 3 wheeled bike so she can go on trails, not just exercise bike indoors. documented as of this encounter (statuses as of 06/24/2023) [facility] History of Past illness Narrative* Problem Noted Date Diagnosed Date Resolved Date OVERWEIGHT 05/11/2021 Last Assessment & Plan: Has made dietary changes since recent hospitalization, decreased carbs, feels better, plans to work harder on wt loss. Getting 3 wheeled bike so she can go on trails, not just exercise bike indoors. documented as of this encounter (statuses as of 06/26/2023) [facility] History of Past illness Narrative* Problem Noted Date Diagnosed Date Resolved Date OVERWEIGHT 05/11/2021 Last Assessment & Plan: Has made dietary changes since recent hospitalization, decreased carbs, feels better, plans to work harder on wt loss. Getting 3 wheeled bike so she can go on trails, not just exercise bike indoors. documented as of this encounter (statuses as of 09/01/2023) [facility] History of Past illness Narrative* Problem Noted Date Diagnosed Date Resolved Date OVERWEIGHT 05/11/2021 Last Assessment & Plan: Has made dietary changes since recent hospitalization, decreased carbs, feels better, plans to work harder on wt loss. Getting 3 wheeled bike so she can go on trails, not just exercise bike indoors. documented as of this encounter (statuses as of 09/05/2023) [facility] History of Past illness Narrative* Problem Noted Date Diagnosed Date Resolved Date OVERWEIGHT 05/11/2021 Last Assessment & Plan: Has made dietary changes since recent hospitalization, decreased carbs, feels better, plans to work harder on wt loss. Getting 3 wheeled bike so she can go on trails, not just exercise bike indoors. documented as of this encounter (statuses as of 09/22/2023) [facility] History of Past illness Narrative* Problem Noted Date Diagnosed Date Resolved Date OVERWEIGHT 05/11/2021 Last Assessment & Plan: Has made dietary changes since recent hospitalization, decreased carbs, feels better, plans to work harder on wt loss. Getting 3 wheeled bike so she can go on trails, not just exercise bike indoors. documented as of this encounter (statuses as of 09/23/2023) [facility] History of Past illness Narrative* Problem Noted Date Diagnosed Date Resolved Date OVERWEIGHT 05/11/2021 Last Assessment & Plan: Has made dietary changes since recent hospitalization, decreased carbs, feels better, plans to work harder on wt loss. Getting 3 wheeled bike so she can go on trails, not just exercise bike indoors. documented as of this encounter (statuses as of 09/26/2023) [facility] History of Past illness Narrative* Problem Noted Date Diagnosed Date Resolved Date OVERWEIGHT 05/11/2021 Last Assessment & Plan: Has made dietary changes since recent hospitalization, decreased carbs, feels better, plans to work harder on wt loss. Getting 3 wheeled bike so she can go on trails, not just exercise bike indoors. documented as of this encounter (statuses as of 09/29/2023) [facility] History of Past illness Narrative* Problem Noted Date Diagnosed Date Resolved Date OVERWEIGHT 05/11/2021 Last Assessment & Plan: Has made dietary changes since recent hospitalization, decreased carbs, feels better, plans to work harder on wt loss. Getting 3 wheeled bike so she can go on trails, not just exercise bike indoors. documented as of this encounter (statuses as of 10/03/2023) [facility] History of Past illness Narrative* Problem Noted Date Diagnosed Date Resolved Date OVERWEIGHT 05/11/2021 Last Assessment & Plan: Has made dietary changes since recent hospitalization, decreased carbs, feels better, plans to work harder on wt loss. Getting 3 wheeled bike so she can go on trails, not just exercise bike indoors. documented as of this encounter (statuses as of 10/18/2023) [facility] History of Past illness Narrative* Problem Noted Date Diagnosed Date Resolved Date OVERWEIGHT 05/11/2021 Last Assessment & Plan: Has made dietary changes since recent hospitalization, decreased carbs, feels better, plans to work harder on wt loss. Getting 3 wheeled bike so she can go on trails, not just exercise bike indoors. documented as of this encounter (statuses as of 10/24/2023) [facility] History of Past illness Narrative* Problem Noted Date Diagnosed Date Resolved Date OVERWEIGHT 05/11/2021 Last Assessment & Plan: Has made dietary changes since recent hospitalization, decreased carbs, feels better, plans to work harder on wt loss. Getting 3 wheeled bike so she can go on trails, not just exercise bike indoors. documented as of this encounter (statuses as of 10/30/2023) [facility] History of Past illness Narrative* Problem Noted Date Diagnosed Date Resolved Date OVERWEIGHT 05/11/2021 Last Assessment & Plan: Has made dietary changes since recent hospitalization, decreased carbs, feels better, plans to work harder on wt loss. Getting 3 wheeled bike so she can go on trails, not just exercise bike indoors. documented as of this encounter (statuses as of 10/31/2023) [facility] History of Past illness Narrative* Problem Noted Date Diagnosed Date Resolved Date OVERWEIGHT 05/11/2021 Last Assessment & Plan: Has made dietary changes since recent hospitalization, decreased carbs, feels better, plans to work harder on wt loss. Getting 3 wheeled bike so she can go on trails, not just exercise bike indoors. documented as of this encounter (statuses as of 11/01/2023) [facility] History of Past illness Narrative* Problem Noted Date Diagnosed Date Resolved Date OVERWEIGHT 05/11/2021 Last Assessment & Plan: Has made dietary changes since recent hospitalization, decreased carbs, feels better, plans to work harder on wt loss. Getting 3 wheeled bike so she can go on trails, not just exercise bike indoors. documented as of this encounter (statuses as of 11/01/2023) [facility] August 02, 2022 12:37pm Note Date/Time August 02, 2022 1 2:32pm [facility] Medical Records Department [address] [place] [address] Transfer to [facility] MR#: [id number] Acct: [id number] Name: ATTILA KIDD Rep #:[id number] : 1945 77 From: Zay Escalera DO PCP: Dr. Octavio Reza MD Status:AD M IN Certification of patient admission REQUIRED AT TIME OF ADMISSION. I CERTIFY THAT POST-HOSPITAL ECF SERVICES ARE REQUIRED TO BE GIVEN ON AN IN-PATIENT BASIS BECAUSE OF THE ABOVE NAMED PATIENT'S NEED FOR DETENTION CARE ON A CONTINUING BASIS FOR THE CONDITION(S) FOR WHICH HE/SHE WAS RECEIVING IN-PATIENT HOSPITAL SERVICES PRIOR TO HIS/HER TRANSFER TO THE [facility]. 08/02/22 1237<Electronically signed by Zay Escalera DO> Diet Diet Order/Speech Therapy: 07/31/22 23:28 Diet: Consistent Carb - Calorie Controlled Food consistency:: Regular Liquid Consistency:: Regular/Thin How many daily calories?: 1800 calorie Therapies Physical Therapy: Eval and Treat Occupational Therapy: Eval and Treat Problem/Diagnosis (1) Bilateral pneumonia: Status: Acute Code(s): J18.9 - Pneumonia, unspecified organism Plan: Strep and legionella antigens negative On pip/tazo. change to augmentin speech therapy passed. (2) Acute hypokalemia: Status: Resolved Code(s): E87.6 - Hypokalemia Plan: resolved (3) Hypoxia: Status: Acute Code(s): R09.02 - Hypoxemia Plan: 2/2 pnuemonia wean oxygen as tolerated Plan Chronic conditions: * Diabetes mellitus type 2: Patient blood glucose control not optimal did continue with home regimen with plans to adjust doses as needed.? She was also placed on Accu-Cheks before meals and at bedtime with sliding scale coverage * Hypertension- Blood pressure controlled, home medications continued with dose adjustment as needed * GERD? On omeprazole did continue * Cardiac arrhythmias including PSVT as well as PACs and PVCs? Patient followed by cardiology on beta-blockers did continue * Class III obesity with BMI of 48? Weight loss advised * Obstructive sleep apnea? PAP therapy at night * Mild intermittent asthma? Patient was placed on bronchodilator treatment in addition to systemic steroid Physical deconditioning - Requested for PT OT eval and social director to assist with discharge planning. To SNF Allergies/Procedures Done in Hospital Allergies pravastatin Allergy (Unknown, Verified 07/31/22 23:52) unknown rosuvastatin [From Crestor] Allergy (Unknown, Verified 07/31/22 23:52) myalgias simvastatin Allergy (Unknown, Verified 07/31/22 23:52) unknown escitalopram Allergy (Verified 07/31/22 23:52) Other hydrochlorothiazide Allergy (Verified 07/31/22 23:52) Other Fhzzleo-EGG-IaP Reductase Inhibitor [Pwjoewx-Vkt-Yhw Reductase Inhibitor] Adverse Reaction (Severe, Verified 07/31/22 23:52) myalgias codeine Adverse Reaction (Verified 07/31/22 23:52) Nausea naproxen [From Naprosyn] Adverse Reaction (Verified 07/31/22 23:52) Nausea Procedures: None Type of Care/Length of Stay Estimated LOS: Convalescent Care Less Than 30 days Type of Care Needed: Skilled Rehab Potential: Fair Prognosis: Good Additional Orders/Day of Discharge Day of Discharge: 08/02/22 Dietary and Speech Recommendations Dietitian Recommendations/Changes: continue 1800 calorie controlled/consistent CHO diet w/ 120mL glucerna TID; will monitor need for Glucerna at time of follow-up. Discharge Plan Admission Admit Date/Time: 07/31/22 22:19 Primary Reason for Your Visit: Pneumonia Attending Provider: Zay Escalera Primary Care Provider: Octavio Reza Consulting Providers: Daisy Gan ; Tawanda Herring Discharge Orders/Prescriptions Prescriptions: New acetaminophen [Tylenol] 325 mg Tablet 650 mg PO Q6H PRN PRN (Reason: Pain 1-10 Or Fever >100.7) Qty: 0 0RF insulin lispro [Humalog KwikPen Insulin] 100 unit/mL Insulin Pen See Protocol subcut ACHS Qty: 0 0RF Protocol: 4. Sliding Scale Insulin High-Med Dosing Condition: 150-199 mg/dl = 2 units Condition: 200-259 mg/dl = 4 units Condition: 260-324 mg/dl = 6 units Condition: 325-374 mg/dl = 8 units Condition: 375-409 mg/dl = 10 units Condition: 410-449 mg/dl = 11 units Condition: Greater than 449 call physician Protocol Text: - Use for Total Daily Dose of Insulin 56-80 units - Patient who are insulin resistant or septic HIGH MEDIUM DOSING ALGORITHM Glucerna 1.2 Will 0.06-1.2 gram-kcal/mL Liquid 120 ml PO TIDCM Qty: 0 0RF amoxicillin-pot clavulanate 875-125 mg tablet 1 tab PO BID Qty: 12 0RF Continued aspirin 81 mg tablet,delayed release (DR/EC) 81 mg PO DAILY cholecalciferol (vitamin D3) 1,250 mcg (50,000 unit) capsule 1,250 mcg PO QWEEK furosemide 20 mg tablet 20 mg PO DAILY PRN (Reason: water pill) insulin lispro 100 unit/mL solution 6 unit subcut TIDCM Protocol: 4. Sliding Scale Insulin High-Med Dosing Condition: 150-199 mg/dl = 2 units Condition: 200-259 mg/dl = 4 units Condition: 260-324 mg/dl = 6 units Condition: 325-374 mg/dl = 8 units Condition: 375-409 mg/dl = 10 units Condition: 410-449 mg/dl = 11 units Condition: Greater than 449 call physician Protocol Text: - Use for Total Daily Dose of Insulin 56-80 units - Patient who are insulin resistant or septic HIGH MEDIUM DOSING ALGORITHM Label Comments: INJECT 3 TO 10 UNITS SUBCUTANEOUSLY BEFORE MEALS DIRECTED budesonide-formoterol 160-4.5 mcg/actuation HFA aerosol inhaler 2 puff inhalation BID omeprazole magnesium [Prilosec OTC] 20 mg tablet,delayed release (DR/EC) 20 mg PO DAILY ramipril 10 MG capsule 10 mg PO BID Label Comments: TAKE 1 CAPSULE BY MOUTH TWICE DAILY zolpidem 5 mg Tablet 2.5 mg PO QHS PRN (Reason: Insomnia) albuterol sulfate [Ventolin HFA] 90 mcg/actuation HFA aerosol inhaler 2 puff INHALATION 4XD PRN (Reason: sob) Qty: 8.5 0RF Rx Instructions: use four times a day for the next seven days, then use every 6 hours as needed for shortness of breath amlodipine [Norvasc] 5 mg tablet 5 mg PO DAILY Changed insulin glargine-yfgn 100 unit/mL (3 mL) insulin pen 24 unit subcut BID Qty: 15 0RF Discontinued Novolin N NPH U-100 Insulin 100 unit/mL suspension 13 unit subcut QAM cefdinir 300 mg capsule 300 mg PO BID 1 Days Qty: 2 0RF No Action metoprolol tartrate 25 mg tablet 25 mg PO BID Referrals / Follow Up: Octavio Reza MD [Primary Care Provider] - Within 2 Weeks Disposition Disposition (needs filled in before D/C Order can be placed): [facility] 08/02/22 1237 <Electronically signed by Zay Escalera DO> Cosigner Signature (if applicable): CC: Dr. Tawanda Herring MD; Dr. Octavio Reza MD; Dr. Daisy Gan MD ~ [facility] Work Phone: Discharge summary Author Dr. Escalera [facility] August 02, 2022 12:39pm Note Date/Time August 02, 2022 1 2:39pm [facility] Medical Records Department [address] [place] [id number] Discharge Summary 08/02/22 1237 MR#: [id number] Acct: [id number] Name: ATTILA KIDD Rep #:[id number] : 1945 77 From: Zay Escalera DO PCP: Dr. Octavio Reza MD Status:AD M IN Location: [place] [address] Providers Date of Admission: 07/31/22 Primary Care Physician: Dr. Octavio Reza MD Reason For Visit: FAILURE TO THRIVE,COVID Diagnosis Discharge Diagnosis (1) Bilateral pneumonia: Status: Acute Code(s): J18.9 - Pneumonia, unspecified organism Plan: Strep and legionella antigens negative On pip/tazo. change to augmentin speech therapy passed. (2) Acute hypokalemia: Status: Resolved Code(s): E87.6 - Hypokalemia Plan: resolved (3) Hypoxia: Status: Acute Code(s): R09.02 - Hypoxemia Plan: 2/2 pnuemonia wean oxygen as tolerated Plan Chronic conditions: * Diabetes mellitus type 2: Patient blood glucose control not optimal did continue with home regimen with plans to adjust doses as needed.? She was also placed on Accu-Cheks before meals and at bedtime with sliding scale coverage. Patient on glargine as well as NPH. Will change dosing to 24 units of gl argine twice daily. In addition to scheduled NovoLog 6 units with meals * Hypertension- Blood pressure controlled, home medications continued with dose adjustment as needed * GERD? On omeprazole did continue * Cardiac arrhythmias including PSVT as well as PACs and PVCs? Patient followed by cardiology on beta-blockers did continue * Class III obesity with BMI of 48? Weight loss advised * Obstructive sleep apnea? PAP therapy at night * Mild intermittent asthma? Patient was placed on bronchodilator treatment in addition to systemic steroid Physical deconditioning - Requested for PT OT eval and social director to assist with discharge planning. To SNF Medications at Discharge Home Medications aspirin 81 mg tablet,delayed release 81 mg PO DAILY heart health 11/24/17 ramipril 10 mg capsule 10 mg PO BID HEART 01/19/19 cholecalciferol (vitamin D3) 1,250 mcg (50,000 unit) capsule 1,250 mcg PO QWEEK SUPPLEMENT 12/03/19 furosemide 20 mg tablet 20 mg PO DAILY PRN water pill 01/22/21 budesonide-formoterol HFA 160 mcg-4.5 mcg/actuation aerosol inhaler 2 puff inhalation BID ASTHMA 12/21/21 zolpidem 5 mg tablet 2.5 mg PO QHS PRN Insomnia 02/11/22 insulin lispro 100 unit/mL subcutaneous solution 6 unit subcut TIDCM dm 06/22/22 omeprazole magnesium 20 mg tablet,delayed release (Prilosec OTC) 20 mg PO DAILY GERD 06/22/22 albuterol sulfate 90 mcg/actuation aerosol inhaler (Ventolin HFA) 2 puff inhalation 4XD PRN sob #8.5 grams 07/14/22 amlodipine 5 mg tablet (Norvasc) 5 mg PO DAILY BLOOD PRESSURE 07/17/22 metoprolol tartrate 25 mg tablet 25 mg PO BID BLOOD PRESSURE 07/17/22 acetaminophen 325 mg tablet (Tylenol) 650 mg PO Q6H PRN PRN Pain 1-10 Or Fever >100.7 #0 tabs 08/02/22 amoxicillin 875 mg-potassium clavulanate 125 mg tablet 1 tab PO BID #12 tabs 08/02/22 insulin glargine-yfgn 100 unit/mL (3 mL) subcutaneous pen 24 unit (0.24 mL) subcut BID #15 mL 08/02/22 insulin lispro 100 unit/mL subcutaneous pen (Humalog KwikPen (U-100) Insulin) See Protocol subcut ACHS #0 mL 08/02/22 nutrition tx glu intol,lac-free,soy-fiber 0.06 gram-1.2 kcal/mL liquid (Glucerna1.2 Will) 120 ml PO TIDCM #0 mL 08/02/22 Hospital Course Operations None Procedures None Summary of Care Provided Minutes Spent on Discharge: 28 Weight / BMI Weight Weight: 149.5 kg Body Mass Index (BMI) 47.9 ABG / Lab / Microbiology Data Result Diagrams: 08/02/22 06:00 08/02/22 06:00 Laboratory: Laboratory Results - last 24 hr 08/01/22 16:34: POC Glucose 320 H 08/01/22 22:32: POC Glucose 368 H 08/02/22 06:00: WBC 5.1, RBC 3.95 L, Hgb 11.6 L, Hct 36.4 L, MCV 92.2, MCH 29.4,MCHC 31.9 L, RDW Std Deviation 43.3, RDW Coeff of Madalyn 12.9, Plt Count 158, MPV 12.6 H, Immature Gran % (Auto) 0.400, Neut % (Auto) 79.8 H, Lymph % (Auto) 11.1 L, Titus % (Auto) 8.1, Eos % (Auto) 0.4, Baso % (Auto) 0.2, Absolute Neuts (auto)4.0, Absolute Lymphs (auto) 0.56 L, Nucleated RBC % 0.6 08/02/22 06:00: Sodium 137, Potassium 3.7, Chloride 101, Carbon Dioxide 26.0, Anion Gap 10, BUN 9, Creatinine 0.66, Estim Creat Clear Calc 49.24, Est GFR (MDRD) Af Amer 111, Est GFR (MDRD) Non-Af 92, BUN/Creatinine Ratio 13.5, [id number] H, Calcium 8.0 L, Phosphorus 2.4 L, Magnesium 1.7 08/02/22 06:40: POC Glucose 217 H 08/02/22 11:38: POC Glucose 286 H Microbiology: Microbiology 01/14/23 20:29 Urine, Catheterized Urine Culture - Preliminary Alpha hemolytic organism Gram positive organism Gram positive organism#2 07/31/22 20:29 Urine, Clean Catch Legionella Antigen - Final 07/31/22 20:29 Urine, Clean Catch Streptococcus pneumoniae Antigen (M - Final 07/31/22 20:10 Nasal Secretion SARS-CoV-2 & FLU Antigen (Rapid) - Final SARS-CoV-2 (COVID 19) Meaningful Use Info Meaningful Use Diagnoses (Choose all that apply): None applicable Discharge Plan Admission Admit Date/Time: 07/31/22 22:19 Primary Reason for Your Visit: Pneumonia Attending Provider: Zay Escalera Primary Care Provider: Octavio Reza Consulting Providers: Daisy Gan ; Tawanda Herring Discharge Orders/Prescriptions Prescriptions: New acetaminophen [Tylenol] 325 mg Tablet 650 mg PO Q6H PRN PRN (Reason: Pain 1-10 Or Fever >100.7) Qty: 0 0RF insulin lispro [Humalog KwikPen Insulin] 100 unit/mL Insulin Pen See Protocol subcut ACHS Qty: 0 0RF Protocol: 4. Sliding Scale Insulin High-Med Dosing Condition: 150-199 mg/dl = 2 units Condition: 200-259 mg/dl = 4 units Condition: 260-324 mg/dl = 6 units Condition: 325-374 mg/dl = 8 units Condition: 375-409 mg/dl = 10 units Condition: 410-449 mg/dl = 11 units Condition: Greater than 449 call physician Protocol Text: - Use for Total Daily Dose of Insulin 56-80 units - Patient who are insulin resistant or septic HIGH MEDIUM DOSING ALGORITHM Glucerna 1.2 Will 0.06-1.2 gram-kcal/mL Liquid 120 ml PO TIDCM Qty: 0 0RF amoxicillin-pot clavulanate 875-125 mg tablet 1 tab PO BID Qty: 12 0RF Continued aspirin 81 mg tablet,delayed release (DR/EC) 81 mg PO DAILY cholecalciferol (vitamin D3) 1,250 mcg (50,000 unit) capsule 1,250 mcg PO QWEEK furosemide 20 mg tablet 20 mg PO DAILY PRN (Reason: water pill) insulin lispro 100 unit/mL solution 6 unit subcut TIDCM Protocol: 4. Sliding Scale Insulin High-Med Dosing Condition: 150-199 mg/dl = 2 units Condition: 200-259 mg/dl = 4 units Condition: 260-324 mg/dl = 6 units Condition: 325-374 mg/dl = 8 units Condition: 375-409 mg/dl = 10 units Condition: 410-449 mg/dl = 11 units Condition: Greater than 449 call physician Protocol Text: - Use for Total Daily Dose of Insulin 56-80 units - Patient who are insulin resistant or septic HIGH MEDIUM DOSING ALGORITHM Label Comments: INJECT 3 TO 10 UNITS SUBCUTANEOUSLY BEFORE MEALS DIRECTED budesonide-formoterol 160-4.5 mcg/actuation HFA aerosol inhaler 2 puff inhalation BID omeprazole magnesium [Prilosec OTC] 20 mg tablet,delayed release (DR/EC) 20 mg PO DAILY ramipril 10 MG capsule 10 mg PO BID Label Comments: TAKE 1 CAPSULE BY MOUTH TWICE DAILY zolpidem 5 mg Tablet 2.5 mg PO QHS PRN (Reason: Insomnia) albuterol sulfate [Ventolin HFA] 90 mcg/actuation HFA aerosol inhaler 2 puff INHALATION 4XD PRN (Reason: sob) Qty: 8.5 0RF Rx Instructions: use four times a day for the next seven days, then use every 6 hours as needed for shortness of breath amlodipine [Norvasc] 5 mg tablet 5 mg PO DAILY Changed insulin glargine-yfgn 100 unit/mL (3 mL) insulin pen 24 unit subcut BID Qty: 15 0RF Discontinued Novolin N NPH U-100 Insulin 100 unit/mL suspension 13 unit subcut QAM cefdinir 300 mg capsule 300 mg PO BID 1 Days Qty: 2 0RF No Action metoprolol tartrate 25 mg tablet 25 mg PO BID Referrals / Follow Up: Octavio Reza MD [Primary Care Provider] - Within 2 Weeks Disposition Disposition (needs filled in before D/C Order can be placed): [facility] Charges/Coding Visit Charges Inpatient E&M: 32733 Disch Hosp 08/02/22 9793 <Electronically signed by Zay Escalera DO> Cosigner Signature (if applicable): CC: Dr. Zay Escalera DO; Dr. Octavio Reza MD~ Signed [facility] Work Phone: Evaluation note* Diagnosis Screening for colon cancer Special screening for malignant neoplasms, colon documented in this encounter [facility] note* Diagnosis Screening for colon cancer- Primary Special screening for malignant neoplasms, colon documented in this encounter [facility] note* Diagnosis Type I diabetes [...] malignant neoplasms, colon [facility]* Diagnosis Chest pain, unspecified type- Primary documented in this encounter [facility] note* Diagnosis Chest pain, unspecified type documented in this encounter [facility] note* Diagnosis Pain of right upper extremity- Primary documented in this encounter [facility] note* Diagnosis Pain of upper abdomen- Primary Abdominal pain, other specified site Alternating constipation and diarrhea Other symptoms involving digestive system documented in this encounter [facility] note* Diagnosis Breast cancer screening by mammogram- Primary Dense breasts Inconclusive mammogram documented in this encounter [facility] note* Diagnosis Onset Date Resolution Status Paroxysmal SVT (supraventricular tachycardia) acute Essential hypertension chron ic Hyperlipidemia [facility] Work Phone: Evaluation note* Diagnosis Palpitations- Primary Encounter for immunization Need for other specified prophylactic vaccination against single bacterial disease documented in this encounter [facility] note* Diagnosis 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)- Primary 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, not stated as uncontrolled Lipomas Vitamin D deficiency Unspecified vitamin D deficiency Insomnia, unspecified type documented in this encounter [facility] note* Diagnosis 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, not stated as uncontrolled Charcot foot due to 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, not stated as uncontrolled documented in this encounter [facility] note* Diagnosis Type I diabetes [...] single bacterial disease [facility] Diagnosis Onset Date Resolution Status Paroxysmal SVT (supraventricular tachycardia) acute Essential hypertension chron ic Hyperlipidemia chronic Hypoxia acute [facility] Work Phone: Evaluation note* Diagnosis Onset Date Resolution Status Paroxysmal SVT (supraventricular tachycardia) acute Essential hypertension chron ic Hyperlipidemia chronic Hypoxia acute Acute hypokalemia acute Acute respiratory failure with hypoxia acute Bilateral pneumonia acute Hyperglycemia due to type 2 diabetes mellitus acute 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 Essential hypertension chron ic Hyperlipidemia chronic [facility] Work Phone: Evaluation note* Diagnosis 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)- Primary 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, not stated as uncontrolled Stress at home Unspecified family circumstance [facility] Diagnosis Onset Date Resolution Status Paroxysmal SVT (supraventricular tachycardia) acute Essential hypertension chron ic Hyperlipidemia chronic Hypoxia acute Acute respiratory failure with hypoxia acute Bilateral pneumonia acute Hyperglycemia due to type 2 diabetes mellitus acute 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 Essential hypertension chron ic Hyperlipidemia chronic Acute hypokalemia resolved Bilateral pneumonia acute Hypoxia acute Acute hypokalemia resolved [facility] Work Phone: Evaluation note* Diagnosis Pneumonia due to COVID-19 virus- Primary Hypoxemia 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, not stated as uncontrolled Moderate persistent asthma without complication Unspecified asthma [facility] Diagnosis Essential hypertension- Primary Unspecified essential hypertension Palpitations 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, not stated as uncontrolled [facility] Diagnosis Cellulitis of female genitalia Unspecified inflammatory disease of cervix, vagina, and vulva [facility] Diagnosis Onset Date Resolution Status Hypoxia resolved Acute hypokalemia resolved Acute respiratory failure with hypoxia resolved Asthma exacerbation in COPD resolved Bilateral pneumonia resolved Acute hypokalemia resolved Bilateral pneumonia resolved Hypoxia resolved [facility] Work Phone: Evaluation note* Diagnosis Labial abscess- Primary Other abscess of vulva Bradycardia Other specified cardiac dysrhythmias [facility]* Diagnosis Onset Date Resolution Status CRAWLEY (dyspnea on exertion) ac [facility] Work Phone: evaluation note* Diagnosis Psoriasis of scalp- Primary Other psoriasis Seborrheic dermatitis Seborrheic dermatitis, unspecified Essential hypertension Unspecified essential hypertension Palpitations History of delirium Personal history of other mental disorder documented in this encounter [facility] note* Diagnosis Screening mammogram for breast cancer- Primary documented in this encounter [facility] note* Diagnosis Palpitations documented in this encounter [facility] noteNo assessment information [facility] Work [facility]* Diagnosis Paroxysmal SVT (supraventricular tachycardia)- Primary Paroxysmal supraventricular tachycardia Palpitations documented in this encounter [facility] note* Diagnosis Severe persistent asthma without complication documented in this encounter [facility] note* Diagnosis Severe persistent asthma without complication- Primary Obesity, Class III, BMI 40-49.9 (morbid obesity) ([facility]) Morbid obesity documented in this encounter [facility] note* Diagnosis Type I diabetes [...] single bacterial disease documented in this encounter [facility] note* Diagnosis Polyarthralgia- Primary Pain in joint, multiple sites 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, not stated as uncontrolled Vitamin D deficiency Unspecified vitamin D deficiency Pain in finger of both hands documented in this encounter [facility] note* Diagnosis Polyarthralgia- Primary Pain in joint, multiple sites Pain in finger of both hands Elevated C-reactive protein (CRP) Elevated sedimentation rate [facility] Diagnosis Mild persistent asthma without complication- Primary Unspecified asthma Morbid obesity (HCC) Morbid obesity THAIS (obstructive sleep apnea) Obstructive sleep apnea (adult) (pediatric) [facility] this 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* Diagnosis Onset Date Resolution Status Essential hypertension chron ic Hyperlipidemia chronic Paroxysmal SVT (supraventricular tachycardia) chronic [facility] Work Phone: Evaluation note* Diagnosis PSVT (paroxysmal supraventricular tachycardia) (HCC)- Primary Paroxysmal supraventricular tachycardia PAC (premature atrial contraction) Supraventricular premature beats Primary insomnia Persistent disorder of initiating or maintaining sleep [facility] Diagnosis Pain and swelling of right lower leg- Primary [facility]* Diagnosis Pain and swelling of right lower leg [facility] Diagnosis 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)- Primary 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, not stated as uncontrolled Encounter for medication management Encounter for long-term (current) use of other medications [facility]* Diagnosis 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)- Primary 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, not stated as uncontrolled [facility]* Diagnosis Vitamin D deficiency Unspecified vitamin D deficiency [facility]* Diagnosis Diabetes mellitus type 1, controlled, without complications (HCC)- Primary Type I (juvenile type) diabetes mellitus without mention of complication, not stated as uncontrolled 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, not stated as uncontrolled documented in this encounter [facility] note* Diagnosis HYPERLIPIDEMIA NEC/NOS Other and unspecified hyperlipidemia DIABETES TYPE I W MANIF NOS 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, not stated as uncontrolled HYPERTENSION NOS Unspecified essential hypertension Stasis dermatitis Varicose veins of lower extremities with inflammation DIABETES TYPE I W MANIF NOS- Primary 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, not stated as uncontrolled Screening for malignant neoplasm of breast Breast screening, unspecified OVERWEIGHT Obesity, unspecified HYPERLIPIDEMIA NEC/NOS Other and unspecified hyperlipidemia OSTEOPENIA Disorder of bone and cartilage, unspecified Charcot foot due to diabetes mellitus (HCC) Type II or unspecified type diabetes mellitus with neurological manifestations, not stated as uncontrolled Essential hypertension, benign Screening mammogram for breast cancer- Primary [facility] emergency department note* Diagnosis HYPERLIPIDEMIA NEC/NOS Other and unspecified hyperlipidemia DIABETES TYPE I W MANIF NOS 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, not stated as uncontrolled HYPERTENSION NOS Unspecified essential hypertension Stasis dermatitis Varicose veins of lower extremities with inflammation DIABETES TYPE I W MANIF NOS- Primary 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, not stated as uncontrolled Screening for malignant neoplasm of breast Breast screening, unspecified OVERWEIGHT Obesity, unspecified HYPERLIPIDEMIA NEC/NOS Other and unspecified hyperlipidemia OSTEOPENIA Disorder of bone and cartilage, unspecified Charcot foot due to diabetes mellitus (HCC) Type II or unspecified type diabetes mellitus with neurological manifestations, not stated as uncontrolled Essential hypertension, benign Mild persistent asthma without complication- Primary Unspecified asthma Shortness of breath [facility] this 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, not stated as uncontrolled Screening for malignant neoplasm of breast Breast screening, unspecified OVERWEIGHT Obesity, unspecified HYPERLIPIDEMIA NEC/NOS Other and unspecified hyperlipidemia OSTEOPENIA Disorder of bone and cartilage, unspecified Charcot foot due to diabetes mellitus (HCC) Type II or unspecified type diabetes mellitus with neurological manifestations, not stated as uncontrolled Essential hypertension, benign Diabetes mellitus type 1, controlled, without complications (HCC)- Primary Type I (juvenile type) diabetes mellitus without mention of complication, not stated as uncontrolled documented in this encounter [facility] note* Diagnosis HYPERLIPIDEMIA NEC/NOS Other and unspecified hyperlipidemia DIABETES TYPE I W MANIF NOS 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, not stated as uncontrolled HYPERTENSION NOS Unspecified essential hypertension Stasis dermatitis Varicose veins of lower extremities with inflammation DIABETES TYPE I W MANIF NOS- Primary 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, not stated as uncontrolled Screening for malignant neoplasm of breast Breast screening, unspecified OVERWEIGHT Obesity, unspecified HYPERLIPIDEMIA NEC/NOS Other and unspecified hyperlipidemia OSTEOPENIA Disorder of bone and cartilage, unspecified Charcot foot due to diabetes mellitus (HCC) Type II or unspecified type diabetes mellitus with neurological manifestations, not stated as uncontrolled Essential hypertension, benign 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)- Primary 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, not stated as uncontrolled Primary insomnia Persistent disorder of initiating or maintaining sleep THAIS (obstructive sleep apnea) Obstructive sleep apnea (adult) (pediatric) Encounter for immunization Need for other specified prophylactic vaccination against single bacterial disease Class 3 severe obesity due to excess calories with body mass index (BMI) of 45.0 to 49.9 in adult, unspecified whether serious comorbidity present (HCC) Seborrheic dermatitis Seborrheic dermatitis, unspecified documented in this encounter [facility] note* Diagnosis HYPERLIPIDEMIA NEC/NOS Other and unspecified hyperlipidemia DIABETES TYPE I W MANIF NOS 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, not stated as uncontrolled HYPERTENSION NOS Unspecified essential hypertension Stasis dermatitis Varicose veins of lower extremities with inflammation DIABETES TYPE I W MANIF NOS- Primary 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, not stated as uncontrolled Screening for malignant neoplasm of breast Breast screening, unspecified OVERWEIGHT Obesity, unspecified HYPERLIPIDEMIA NEC/NOS Other and unspecified hyperlipidemia OSTEOPENIA Disorder of bone and cartilage, unspecified Charcot foot due to diabetes mellitus (HCC) Type II or unspecified type diabetes mellitus with neurological manifestations, not stated as uncontrolled Essential hypertension, benign 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, not stated as uncontrolled [facility] Diagnosis HYPERLIPIDEMIA NEC/NOS Other and unspecified hyperlipidemia DIABETES TYPE I W MANIF NOS 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, not stated as uncontrolled HYPERTENSION NOS Unspecified essential hypertension Stasis dermatitis Varicose veins of lower extremities with inflammation DIABETES TYPE I W MANIF NOS- Primary 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, not stated as uncontrolled Screening for malignant neoplasm of breast Breast screening, unspecified OVERWEIGHT Obesity, unspecified HYPERLIPIDEMIA NEC/NOS Other and unspecified hyperlipidemia OSTEOPENIA Disorder of bone and cartilage, unspecified Charcot foot due to diabetes mellitus (HCC) Type II or unspecified type diabetes mellitus with neurological manifestations, not stated as uncontrolled Essential hypertension, benign Mild persistent asthma without complication Unspecified asthma documented in this encounter [facility] note* Diagnosis HYPERLIPIDEMIA NEC/NOS Other and unspecified hyperlipidemia DIABETES TYPE I W MANIF NOS 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, not stated as uncontrolled HYPERTENSION NOS Unspecified essential hypertension Stasis dermatitis Varicose veins of lower extremities with inflammation DIABETES TYPE I W MANIF NOS- Primary 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, not stated as uncontrolled Screening for malignant neoplasm of breast Breast screening, unspecified OVERWEIGHT Obesity, unspecified HYPERLIPIDEMIA NEC/NOS Other and unspecified hyperlipidemia OSTEOPENIA Disorder of bone and cartilage, unspecified Charcot foot due to diabetes mellitus (HCC) Type II or unspecified type diabetes mellitus with neurological manifestations, not stated as uncontrolled Essential hypertension, benign Moderate persistent asthma without complication- Primary Unspecified asthma Morbid obesity (HCC) Morbid obesity THAIS (obstructive sleep apnea) Obstructive sleep apnea (adult) (pediatric) [facility] Diagnosis HYPERLIPIDEMIA NEC/NOS Other and unspecified hyperlipidemia DIABETES TYPE I W MANIF NOS 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, not stated as uncontrolled HYPERTENSION NOS Unspecified essential hypertension Stasis dermatitis Varicose veins of lower extremities with inflammation DIABETES TYPE I W MANIF NOS- Primary 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, not stated as uncontrolled Screening for malignant neoplasm of breast Breast screening, unspecified OVERWEIGHT Obesity, unspecified HYPERLIPIDEMIA NEC/NOS Other and unspecified hyperlipidemia OSTEOPENIA Disorder of bone and cartilage, unspecified Charcot foot due to diabetes mellitus (HCC) Type II or unspecified type diabetes mellitus with neurological manifestations, not stated as uncontrolled Essential hypertension, benign 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)- Primary 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, not stated as uncontrolled documented in this encounter [facility] note* Diagnosis HYPERLIPIDEMIA NEC/NOS Other and unspecified hyperlipidemia DIABETES TYPE I W MANIF NOS 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, not stated as uncontrolled HYPERTENSION NOS Unspecified essential hypertension Stasis dermatitis Varicose veins of lower extremities with inflammation DIABETES TYPE I W MANIF NOS- Primary 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, not stated as uncontrolled Screening for malignant neoplasm of breast Breast screening, unspecified OVERWEIGHT Obesity, unspecified HYPERLIPIDEMIA NEC/NOS Other and unspecified hyperlipidemia OSTEOPENIA Disorder of bone and cartilage, unspecified Charcot foot due to diabetes mellitus (HCC) Type II or unspecified type diabetes mellitus with neurological manifestations, not stated as uncontrolled Essential hypertension, benign 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)- Primary 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, not stated as uncontrolled documented in this encounter [facility] note* Diagnosis HYPERLIPIDEMIA NEC/NOS Other and unspecified hyperlipidemia DIABETES TYPE I W MANIF NOS 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, not stated as uncontrolled HYPERTENSION NOS Unspecified essential hypertension Stasis dermatitis Varicose veins of lower extremities with inflammation DIABETES TYPE I W MANIF NOS- Primary 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, not stated as uncontrolled Screening for malignant neoplasm of breast Breast screening, unspecified OVERWEIGHT Obesity, unspecified HYPERLIPIDEMIA NEC/NOS Other and unspecified hyperlipidemia OSTEOPENIA Disorder of bone and cartilage, unspecified Charcot foot due to diabetes mellitus (HCC) Type II or unspecified type diabetes mellitus with neurological manifestations, not stated as uncontrolled Essential hypertension, benign Pain of right upper extremity documented in this encounter [facility] note* Diagnosis HYPERLIPIDEMIA NEC/NOS Other and unspecified hyperlipidemia DIABETES TYPE I W MANIF NOS 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, not stated as uncontrolled HYPERTENSION NOS Unspecified essential hypertension Stasis dermatitis Varicose veins of lower extremities with inflammation DIABETES TYPE I W MANIF NOS- Primary 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, not stated as uncontrolled Screening for malignant neoplasm of breast Breast screening, unspecified OVERWEIGHT Obesity, unspecified HYPERLIPIDEMIA NEC/NOS Other and unspecified hyperlipidemia OSTEOPENIA Disorder of bone and cartilage, unspecified Charcot foot due to diabetes mellitus (HCC) Type II or unspecified type diabetes mellitus with neurological manifestations, not stated as uncontrolled Essential hypertension, benign Acute cough- Primary URI, acute Acute upper respiratory infections of unspecified site Acute cough URI, acute Acute upper respiratory infections of unspecified site documented in this encounter [facility] note* Diagnosis HYPERLIPIDEMIA NEC/NOS Other and unspecified hyperlipidemia DIABETES TYPE I W MANIF NOS 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, not stated as uncontrolled HYPERTENSION NOS Unspecified essential hypertension Stasis dermatitis Varicose veins of lower extremities with inflammation DIABETES TYPE I W MANIF NOS- Primary 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, not stated as uncontrolled Screening for malignant neoplasm of breast Breast screening, unspecified OVERWEIGHT Obesity, unspecified HYPERLIPIDEMIA NEC/NOS Other and unspecified hyperlipidemia OSTEOPENIA Disorder of bone and cartilage, unspecified Charcot foot due to diabetes mellitus (HCC) Type II or unspecified type diabetes mellitus with neurological manifestations, not stated as uncontrolled Essential hypertension, benign Acute cough URI, acute Acute upper respiratory infections of unspecified site documented in this encounter [facility] note* Diagnosis HYPERLIPIDEMIA NEC/NOS Other and unspecified hyperlipidemia DIABETES TYPE I W MANIF NOS 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, not stated as uncontrolled HYPERTENSION NOS Unspecified essential hypertension Stasis dermatitis Varicose veins of lower extremities with inflammation DIABETES TYPE I W MANIF NOS- Primary 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, not stated as uncontrolled Screening for malignant neoplasm of breast Breast screening, unspecified OVERWEIGHT Obesity, unspecified HYPERLIPIDEMIA NEC/NOS Other and unspecified hyperlipidemia OSTEOPENIA Disorder of bone and cartilage, unspecified Charcot foot due to diabetes mellitus (HCC) Type II or unspecified type diabetes mellitus with neurological manifestations, not stated as uncontrolled Essential hypertension, benign 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)- Primary 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, not stated as uncontrolled Diabetes mellitus type 1, controlled, without complications (HCC) Type I (juvenile type) diabetes mellitus without mention of complication, not stated as uncontrolled documented in this encounter [facility] note* Diagnosis HYPERLIPIDEMIA NEC/NOS Other and unspecified hyperlipidemia DIABETES TYPE I W MANIF NOS 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, not stated as uncontrolled HYPERTENSION NOS Unspecified essential hypertension Stasis dermatitis Varicose veins of lower extremities with inflammation DIABETES TYPE I W MANIF NOS- Primary 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, not stated as uncontrolled Screening for malignant neoplasm of breast Breast screening, unspecified OVERWEIGHT Obesity, unspecified HYPERLIPIDEMIA NEC/NOS Other and unspecified hyperlipidemia OSTEOPENIA Disorder of bone and cartilage, unspecified Charcot foot due to diabetes mellitus (HCC) Type II or unspecified type diabetes mellitus with neurological manifestations, not stated as uncontrolled Essential hypertension, benign Dental abscess- Primary Periapical abscess without sinus 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, not stated as uncontrolled PAC (premature atrial contraction) Supraventricular premature beats PVC (premature ventricular contraction) Other premature beats documented in this encounter [facility] note* Diagnosis HYPERLIPIDEMIA NEC/NOS Other and unspecified hyperlipidemia DIABETES TYPE I W MANIF NOS 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, not stated as uncontrolled HYPERTENSION NOS Unspecified essential hypertension Stasis dermatitis Varicose veins of lower extremities with inflammation DIABETES TYPE I W MANIF NOS- Primary 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, not stated as uncontrolled Screening for malignant neoplasm of breast Breast screening, unspecified OVERWEIGHT Obesity, unspecified HYPERLIPIDEMIA NEC/NOS Other and unspecified hyperlipidemia OSTEOPENIA Disorder of bone and cartilage, unspecified Charcot foot due to diabetes mellitus (HCC) Type II or unspecified type diabetes mellitus with neurological manifestations, not stated as uncontrolled Essential hypertension, benign Diabetes mellitus type 1, controlled, without complications (HCC)- Primary Type I (juvenile type) diabetes mellitus without mention of complication, not stated as uncontrolled documented in this encounter [facility] note* Diagnosis HYPERLIPIDEMIA NEC/NOS Other and unspecified hyperlipidemia DIABETES TYPE I W MANIF NOS 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, not stated as uncontrolled HYPERTENSION NOS Unspecified essential hypertension Stasis dermatitis Varicose veins of lower extremities with inflammation DIABETES TYPE I W MANIF NOS- Primary 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, not stated as uncontrolled Screening for malignant neoplasm of breast Breast screening, unspecified OVERWEIGHT Obesity, unspecified HYPERLIPIDEMIA NEC/NOS Other and unspecified hyperlipidemia OSTEOPENIA Disorder of bone and cartilage, unspecified Charcot foot due to diabetes mellitus (HCC) Type II or unspecified type diabetes mellitus with neurological manifestations, not stated as uncontrolled Essential hypertension, benign 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)- Primary 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, not stated as uncontrolled Screening for malignant neoplasm of breast Breast screening, unspecified OVERWEIGHT Obesity, unspecified HYPERLIPIDEMIA NEC/NOS Other and unspecified hyperlipidemia OSTEOPENIA Disorder of bone and cartilage, unspecified Charcot foot due to diabetes mellitus (HCC) Type II or unspecified type diabetes mellitus with neurological manifestations, not stated as uncontrolled Essential hypertension, benign 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)- Primary 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, not stated as uncontrolled [facility] Diagnosis HYPERLIPIDEMIA NEC/NOS Other and unspecified hyperlipidemia DIABETES TYPE I W MANIF NOS 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, not stated as uncontrolled HYPERTENSION NOS Unspecified essential hypertension Stasis dermatitis Varicose veins of lower extremities with inflammation DIABETES TYPE I W MANIF NOS- Primary 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, not stated as uncontrolled Screening for malignant neoplasm of breast Breast screening, unspecified OVERWEIGHT Obesity, unspecified HYPERLIPIDEMIA NEC/NOS Other and unspecified hyperlipidemia OSTEOPENIA Disorder of bone and cartilage, unspecified Charcot foot due to diabetes mellitus (HCC) Type II or unspecified type diabetes mellitus with neurological manifestations, not stated as uncontrolled Essential hypertension, benign 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, not stated as uncontrolled Screening for malignant neoplasm of breast Breast screening, unspecified OVERWEIGHT Obesity, unspecified HYPERLIPIDEMIA NEC/NOS Other and unspecified hyperlipidemia OSTEOPENIA Disorder of bone and cartilage, unspecified Charcot foot due to diabetes mellitus (HCC) Type II or unspecified type diabetes mellitus with neurological manifestations, not stated as uncontrolled Essential hypertension, benign Acute cystitis without hematuria Acute cystitis documented in this encounter [facility] note* Diagnosis HYPERLIPIDEMIA NEC/NOS Other and unspecified hyperlipidemia DIABETES TYPE I W MANIF NOS 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, not stated as uncontrolled HYPERTENSION NOS Unspecified essential hypertension Stasis dermatitis Varicose veins of lower extremities with inflammation DIABETES TYPE I W MANIF NOS- Primary 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, not stated as uncontrolled Screening for malignant neoplasm of breast Breast screening, unspecified OVERWEIGHT Obesity, unspecified HYPERLIPIDEMIA NEC/NOS Other and unspecified hyperlipidemia OSTEOPENIA Disorder of bone and cartilage, unspecified Charcot foot due to diabetes mellitus (HCC) Type II or unspecified type diabetes mellitus with neurological manifestations, not stated as uncontrolled Essential hypertension, benign Essential hypertension- Primary Unspecified essential hypertension 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, not stated as uncontrolled Screening for malignant neoplasm of breast Breast screening, unspecified OVERWEIGHT Obesity, unspecified HYPERLIPIDEMIA NEC/NOS Other and unspecified hyperlipidemia OSTEOPENIA Disorder of bone and cartilage, unspecified Charcot foot due to diabetes mellitus (HCC) Type II or unspecified type diabetes mellitus with neurological manifestations, not stated as uncontrolled Essential hypertension, benign 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)- Primary 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, not stated as uncontrolled documented in this encounter [facility] note* Diagnosis HYPERLIPIDEMIA NEC/NOS Other and unspecified hyperlipidemia DIABETES TYPE I W MANIF NOS 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, not stated as uncontrolled HYPERTENSION NOS Unspecified essential hypertension Stasis dermatitis Varicose veins of lower extremities with inflammation DIABETES TYPE I W MANIF NOS- Primary 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, not stated as uncontrolled Screening for malignant neoplasm of breast Breast screening, unspecified OVERWEIGHT Obesity, unspecified HYPERLIPIDEMIA NEC/NOS Other and unspecified hyperlipidemia OSTEOPENIA Disorder of bone and cartilage, unspecified Charcot foot due to diabetes mellitus (HCC) Type II or unspecified type diabetes mellitus with neurological manifestations, not stated as uncontrolled Essential hypertension, benign 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)- Primary 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, not stated as uncontrolled documented in this encounter [facility] note* Diagnosis HYPERLIPIDEMIA NEC/NOS Other and unspecified hyperlipidemia DIABETES TYPE I W MANIF NOS 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, not stated as uncontrolled HYPERTENSION NOS Unspecified essential hypertension Stasis dermatitis Varicose veins of lower extremities with inflammation DIABETES TYPE I W MANIF NOS- Primary 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, not stated as uncontrolled Screening for malignant neoplasm of breast Breast screening, unspecified OVERWEIGHT Obesity, unspecified HYPERLIPIDEMIA NEC/NOS Other and unspecified hyperlipidemia OSTEOPENIA Disorder of bone and cartilage, unspecified Charcot foot due to diabetes mellitus (HCC) Type II or unspecified type diabetes mellitus with neurological manifestations, not stated as uncontrolled Essential hypertension, benign 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, not stated as uncontrolled Charcot foot due to 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, not stated as uncontrolled [facility] Diagnosis HYPERLIPIDEMIA NEC/NOS Other and unspecified hyperlipidemia DIABETES TYPE I W MANIF NOS 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, not stated as uncontrolled HYPERTENSION NOS Unspecified essential hypertension Stasis dermatitis Varicose veins of lower extremities with inflammation DIABETES TYPE I W MANIF NOS- Primary 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, not stated as uncontrolled Screening for malignant neoplasm of breast Breast screening, unspecified OVERWEIGHT Obesity, unspecified HYPERLIPIDEMIA NEC/NOS Other and unspecified hyperlipidemia OSTEOPENIA Disorder of bone and cartilage, unspecified Charcot foot due to diabetes mellitus (HCC) Type II or unspecified type diabetes mellitus with neurological manifestations, not stated as uncontrolled Essential hypertension, benign Acute diarrhea- Primary Diarrhea 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, not stated as uncontrolled Anemia, unspecified type Essential hypertension Unspecified essential hypertension Morbid (severe) obesity due to excess calories (HCC) documented in this encounter [facility]* Diagnosis HYPERLIPIDEMIA NEC/NOS Other and unspecified hyperlipidemia DIABETES TYPE I W MANIF NOS 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, not stated as uncontrolled HYPERTENSION NOS Unspecified essential hypertension Stasis dermatitis Varicose veins of lower extremities with inflammation DIABETES TYPE I W MANIF NOS- Primary 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, not stated as uncontrolled Screening for malignant neoplasm of breast Breast screening, unspecified OVERWEIGHT Obesity, unspecified HYPERLIPIDEMIA NEC/NOS Other and unspecified hyperlipidemia OSTEOPENIA Disorder of bone and cartilage, unspecified Charcot foot due to diabetes mellitus (HCC) Type II or unspecified type diabetes mellitus with neurological manifestations, not stated as uncontrolled Essential hypertension, benign 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)- Primary Primary insomnia Persistent disorder of initiating or maintaining sleep Anxiety state Anxiety state, unspecified Vitamin D deficiency Unspecified vitamin D deficiency Constipation, unspecified constipation type Psoriasis of scalp Other psoriasis Seborrheic dermatitis Seborrheic dermatitis, unspecified documented in this encounter [facility] note* Diagnosis HYPERLIPIDEMIA NEC/NOS Other and unspecified hyperlipidemia DIABETES TYPE I W MANIF NOS 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, not stated as uncontrolled HYPERTENSION NOS Unspecified essential hypertension Stasis dermatitis Varicose veins of lower extremities with inflammation DIABETES TYPE I W MANIF NOS- Primary 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, not stated as uncontrolled Screening for malignant neoplasm of breast Breast screening, unspecified OVERWEIGHT Obesity, unspecified HYPERLIPIDEMIA NEC/NOS Other and unspecified hyperlipidemia OSTEOPENIA Disorder of bone and cartilage, unspecified Charcot foot due to diabetes mellitus (HCC) Type II or unspecified type diabetes mellitus with neurological manifestations, not stated as uncontrolled Essential hypertension, benign 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, not stated as uncontrolled Charcot foot due to 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, not stated as uncontrolled [facility] Diagnosis HYPERLIPIDEMIA NEC/NOS Other and unspecified hyperlipidemia DIABETES TYPE I W MANIF NOS 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, not stated as uncontrolled HYPERTENSION NOS Unspecified essential hypertension Stasis dermatitis Varicose veins of lower extremities with inflammation DIABETES TYPE I W MANIF NOS- Primary 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, not stated as uncontrolled Screening for malignant neoplasm of breast Breast screening, unspecified OVERWEIGHT Obesity, unspecified HYPERLIPIDEMIA NEC/NOS Other and unspecified hyperlipidemia OSTEOPENIA Disorder of bone and cartilage, unspecified Charcot foot due to diabetes mellitus (HCC) Type II or unspecified type diabetes mellitus with neurological manifestations, not stated as uncontrolled Essential hypertension, benign 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, not stated as uncontrolled Screening for malignant neoplasm of breast Breast screening, unspecified OVERWEIGHT Obesity, unspecified HYPERLIPIDEMIA NEC/NOS Other and unspecified hyperlipidemia OSTEOPENIA Disorder of bone and cartilage, unspecified Charcot foot due to diabetes mellitus (HCC) Type II or unspecified type diabetes mellitus with neurological manifestations, not stated as uncontrolled Essential hypertension, benign 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)- Primary 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, not stated as uncontrolled 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) [facility] Additional Instructions Your chest x-ray shows no sign of pneumonia and COVID/flu/RSV swab is negative. I suspect this is a different viral upper respiratory infection. Use nasal saline and [id number] congestion medication as needed. Follow-up with your doctor. If symptoms worsen return to ER.[facility] Work Phone: Hospital Discharge instructions Additional Instructions Follow-up with endocrinology next week as scheduled.[facility] Work Phone: Hospital Discharge instructions Additional Instructions Follow-up with your doctor in outpatient setting. Return with worsening symptoms or any concerns. Your CT scan did not show anything surgical going on. Blood work was largely normal. Return with worsening symptoms or other concerns. Follow-up on urine culture with [facility] Work Phone: Hospital Discharge instructions Additional Instructions You can take [id number] Imodium as needed. Drink plenty of fluids. Follow- up with your primary care doctor. Follow-up with your doctor. You have small amount of blood in your diarrhea. Your blood count is dropped a little bit. You need to have your blood count rechecked in 1 to 2 weeks. And they can decide whether test to do for the small amount of blood in your stool.[facility] Work Phone: Hospital Discharge instructions Additional Instructions Left lower leg ultrasound negative for any blood clots. Bruising should heal with time. Follow-up with your doctor.[facility] Work Phone: Hospital Discharge instructions Additional Instructions Follow-up with your escrow closer tomorrow. Call them with a log of your blood sugars as you have been. Keep a log of your blood sugars. Return with fever, chills, nausea, vomiting, abdominal pain, new or worsening symptoms.[facility] Work Phone: Hospital Discharge instructions Additional Instructions Your exam is good today. The labs you had done in the middle of November were good also. Your blood sugar here today was 227. Take your insulin per your sliding scale when you get home.[facility] Work Phone: Reason for referral (narrative)* Outpatient Procedure (Routine) - Closed Specialty Diagnoses / Procedures Referred By Belgica jalloh Referred To Contact [facility] Diagnoses Screening for colon cancer Procedures COLONOSCOPY SCREENING COLONOSCOPY FLX DX W/COLLJ SPEC WHEN Holland Mercado MD [address] [place] [address] [address] Referral ID Status Reason Start Date Expiration Date V isits Requested Visits Authorized Closed Auto-Generate d Referral 09/22/2021 09/22/2022 1 1 [facility] for referral (narrative)* Outpatient Procedure (Routine) - Closed Specialty Diagnoses / Procedures Referred By Belgica jalloh Referred To Contact [facility] Diagnoses Screening for colon cancer Procedures COLONOSCOPY SCREENING COLONOSCOPY FLX DX W/COLLJ SPEC WHEN Holland Mercado MD [address] [place] [address] [facility] Disease [address] [address] Referral ID Status Reason Start Date Expiration Date V isits Requested Visits Authorized Closed Auto-Generate d Referral 09/22/2021 09/22/2022 1 1 [facility] for referral (narrative)* Diagnostic Procedure Only (Routine) - Pending Review Specialty Diagnoses / Procedures Referred By Belgica jalloh Referred To Contact [facility] Diagnoses Breast cancer screening by mammogram Dense breasts Procedures KELLY SCREENING W MINAL SCREENING DIGITAL BREAST TOMOSYNTHESIS BI SCREENING MAMMOGRAPHY BI 2-VIEW BREAST INC CAD Harjinder Lydia, CLINICAL LAW PROFESSOR.[employer] [address] [place] [address] [facility] [address] [place] [address] Referral ID Status Reason Start Date Expiration Date Visits Requested Visits Authorized [id number] Pending Review Auto-Generat ed Referral 01/21/2022 02/19/2023 1 1 [facility] for referral (narrative)* Diagnostic Procedure Only (Routine) - Pending Review Specialty Diagnoses / Procedures Referred By Belgica jalloh Referred To Contact [facility] Diagnoses Screening mammogram for breast cancer Procedures KELLY SCREENING W MINAL SCREENING DIGITAL BREAST TOMOSYNTHESIS BI SCREENING MAMMOGRAPHY BI 2-VIEW BREAST INC CAD Octavio Reza MD [address] [place] [address] [facility] [address] [place] [phone] Referral ID Status Reason Start Date Expiration Date Visits Requested Visits Authorized [id number] Pending Review Auto-Generat ed Referral 02/21/2023 03/22/2024 1 1 [facility] for referral (narrative)* Outpatient Procedure (Routine) - Closed Specialty Diagnoses / Procedures Referred By Belgica jalloh [facility] Diagnoses Severe persistent asthma without complication Procedures NITRIC OXIDE, EXHALED NITRIC OXIDE GAS DETERMINATION Tierney Nunez PA-C [address] [place] [address] [facility] [address] [place] [address] Referral ID Status Reason Start Date Expiration Date V isits Requested Visits Authorized [id number] Closed Auto-Generate d Referral 06/23/2023 07/22/2024 1 1 * Outpatient Procedure (Routine) - Closed Specialty Diagnoses / Procedures Referred By Contac t Referred To [facility] Diagnoses Severe persistent asthma without complication Procedures SPIROMETRY BASELINE ONLY SPMTRY W/VC EXPIRATORY MYRON W/WO MXML VOL VNTJ Tierney Nunez PA-C [address] [place] [address] [place] [id number] Referral ID Status Reason Start Date Expiration Date V isits Requested Visits Authorized [id number] Closed Auto-Generate d Referral 06/23/2023 07/17/2023 1 1 * Outpatient Procedure (Routine) - Closed Specialty Diagnoses / Procedures Referred By Contac t Referred To [facility] Diagnoses Severe persistent asthma without complication Procedures OXIMETRY WITH AMBULATION NONINVASIVE EAR/PULSE OXIMETRY MULTIPLE Tierney Huber PA-C [address] [place] [address] [address] Referral ID Status Reason Start Date Expiration Date V isits Requested Visits Authorized [id number] Closed Auto-Generate d Referral 06/23/2023 07/17/2023 1 1 [facility] for referral (narrative)* Outpatient Procedure (Routine) - Authorized Specialty Diagnoses / Procedures Referred By Contac t Referred To [facility] Diagnoses Mild persistent asthma without complication Procedures NITRIC OXIDE, EXHALED NITRIC OXIDE GAS DETERMINATION Jeannine Perkins MD [address] [place] [address] [address] Referral ID Status Reason Start Date Expiration Date Visits Requested Visits Authorized [id number] Authorized Auto-Generat ed Referral 09/22/2023 10/21/2024 1 1 [facility] for referral (narrative)* Diagnostic Procedure Only (Urgent) - Closed Specialty Diagnoses / Procedures Referred By Contac t Referred To Contact [facility] Diagnoses Pain and swelling of right lower leg Procedures US DVT LOWER RIGHT DUP-SCAN XTR VEINS UNILATERAL/LIMITED STUDY Tamika Morris MD [address] [place] [address] [place] [address] Referral ID Status Reason Start Date Expiration Date V isits Requested Visits Authorized [id number] Closed Auto-Generate d Referral 10/31/2023 11/29/2024 1 1 [facility] for referral (narrative)* Diagnostic Procedure Only (Urgent) - Closed Specialty Diagnoses / Procedures Referred By Contac t Referred To Contact [facility] Diagnoses Pain and swelling of right lower leg Procedures US DVT LOWER RIGHT DUP-SCAN XTR VEINS UNILATERAL/LIMITED STUDY Tamika Morris MD [address] [place] [address] [place] [address] Referral ID Status Reason Start Date Expiration Date V isits Requested Visits Authorized [id number] Closed Auto-Generate d Referral 10/31/2023 11/29/2024 1 1 T [facility] for referral (narrative)* Diagnostic Procedure Only (Routine) - New Request Specialty Diagnoses / Procedures Referred By Contac t Referred To Contact [facility] Diagnoses Screening mammogram for breast cancer Procedures KELLY SCREENING W MINAL SCREENING DIGITAL BREAST TOMOSYNTHESIS BI SCREENING MAMMOGRAPHY BI 2-VIEW BREAST INC Lydia López, CLINICAL LAW PROFESSOR.[employer] [address] [place] [address] [facility] [address] [place] [address] Referral ID Status Reason Start Date Expiration Date Visits Requested Visits Authorized [id number] New Request Auto-Generat ed Referral 03/05/2024 04/04/2025 1 1 [facility] for referral (narrative)* Outpatient Procedure (Routine) - Authorized Specialty Diagnoses / Procedures Referred By Contac t [facility] Diagnoses Moderate persistent asthma without complication Procedures NITRIC OXIDE, EXHALED NITRIC OXIDE GAS DETERMINATION Jeannine Perkins MD [address] [place] [address] [facility] [address] [place] [address] Referral ID Status Reason Start Date Expiration Date Visits Requested Visits Authorized [id number] Authorized Auto-Generat ed Referral 03/30/2024 04/29/2025 1 1 [facility] for referral (narrative)* Diagnostic Procedure Only (Urgent) - Closed Specialty Diagnoses / Procedures Referred By Contac t Referred To Contact [facility] Diagnoses Pain of right upper extremity Procedures XR HUMERUS 2V AP/LAT RIGHT RADEX HUMERUS MINIMUM 2 VIEWS Wanda Phillips APRN.CNP [address] [place] [address] [place] [address] Referral ID Status Reason Start Date Expiration Date V isits Requested Visits Authorized [id number] Closed Auto-Generate d Referral 12/17/2021 01/16/2023 1 1 [facility] for referral (narrative)No reason for referral information [facility] Work Phone: Reason for visit Narrative* Outpatient Procedure (Routine) - Closed Specialty Diagnoses / Procedures Referred By Contac t Referred [facility] Diagnoses Screening for colon cancer Procedures COLONOSCOPY SCREENING COLONOSCOPY FLX DX W/COLLJ SPEC WHEN PFRMD Holland Carmichael MD [address] [place] [address] [facility] [address] [place] [address] Referral ID Status Reason Start Date Expiration Date V isits Requested Visits Authorized [id number] Closed Auto-Generate d Referral 09/22/2021 09/22/2022 1 1 [facility] for visit Narrative* Diagnostic Procedure Only (Urgent) - Closed Specialty Diagnoses / Procedures Referred By Contac t Referred To Contact [facility] Diagnoses Pain and swelling of right lower leg Procedures US DVT LOWER RIGHT DUP-SCAN XTR VEINS UNILATERAL/LIMITED STUDY Tamika Morris MD [address] [place] [address] [place] [address] Referral ID Status Reason Start Date Expiration Date V isits Requested Visits Authorized [id number] Closed Auto-Generate d Referral 10/31/2023 11/29/2024 1 1 [facility] for visit Narrative* Diagnostic Procedure Only (Urgent) - Closed Specialty Diagnoses / Procedures Referred By Contac t Referred To Contact [facility] Diagnoses Pain of right upper extremity Procedures XR HUMERUS 2V AP/LAT RIGHT RADEX HUMERUS MINIMUM 2 VIEWS Wanda Phillips APRN.PLATE SLITTER AND INSPECTOR [address] [place] [address] [place] [address] Referral ID Status Reason Start Date Expiration Date V isits Requested Visits Authorized [id number] Closed Auto-Generate d Referral 12/17/2021 01/16/2023 1 1 [facility] Advance Directives Documents on File Type Date Recorded 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 Advance Directive(s) 09/30/2021 12:15 PM Documents on File Type Date Recorded 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 Advance Directive(s) 10/29/2021 7:15 AM Advance Directive(s) 09/30/2021 12:15 PM Documents on File Type Date Recorded 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 Advance Directive(s) 10/29/2021 7:15 AM Advance Directive(s) 09/30/2021 12:15 PM Advance Directive Response Recorded Date/ Time Name of Medical Power of Screening Technician pam snyder February 11, 2022 2:28pm Advance Directives Yes March 12, 2016 2:58pm Living Will Yes February 11, 2022 2:28pm Power of Screening Technician Yes February 11 2:28pm Advance Directive Response Recorded Date/ Time Name of Medical Power of Screening Technician Elijah Kessinge r July 10, 2022 3:19pm Advance Directives Yes March 12, 2016 1:58pm Living Will Yes July 10, 2 022 3:19pm Power of Screening Technician Yes July 10, 2022 3:19pm Advance Directive Response Recorded Date/ Time Name of Medical Power of Screening Technician Elijah Kessinge r July 10, 2022 6:37pm Name of Medical Power of Screening Technician Elijah Kessinge r July 18, 2022 2:48am Advance Directives Yes March 12, 2016 1:58pm Living Will Yes July 18 2:48am Power of Screening Technician Yes July 18 023 2:48am Advance Directive Response Recorded Date/ Time Name of Medical Power of Screening Technician Elijah Kessinge r July 10, 2022 6:37pm Name of Medical Power of Screening Technician Elijah Kessinge r July 18, 2022 2:48am Name of Medical Power of Screening Technician Elijah Kessinge r July 31, 2022 7:14pm Advance Directives Yes March 12, 2016 1:58pm Living Will Yes July 31 7:14pm Power of Screening Technician Yes July 31, 2022 7:14pm Advance Directive Response Recorded Date/ Time Name of Medical Power of Screening Technician Elijah Kessinge r July 10, 2022 6:37pm Name of Medical Power of Screening Technician Elijah Kessinge r July 18, 2022 2:48am Name of Medical Power of Screening Technician Elijah Kessinge r- July 31, 2022 11:29pm Advance Directives Yes March 12, 2016 1:58pm Living Will Yes July 31 11:29pm Power of Screening Technician Yes July 31, 2022 11:29pm Advance Directive Response Recorded Date/ Time Name of Medical Power of Screening Technician Elijah Kessinge r July 10, 2022 7:37pm Name of Medical Power of Screening Technician Elijah Kessinge r July 18, 2022 3:48am Name of Medical Power of Screening Technician Elijah Kessinge r- August 01, 2022 12:29am Name of Medical Power of Screening Technician ELIJAH KESSINGE R October 01, 2022 2:19pm Advance Directives Yes March 12, 2016 2:58pm Living Will Yes October 01, 2022 2:19pm Power of Screening Technician Yes October 01 2:19pm Advance Directive Response Recorded Date/ Time Name of Medical Power of Screening Technician Eljiah Kessinge r July 10, 2022 7:37pm Name of Medical Power of Screening Technician Elijah Kessinge r July 18, 2022 3:48am Name of Medical Power of Screening Technician Elijah Kessinge r- August 01, 2022 12:29am Name of Medical Power of Screening Technician ELIJAH KESSINGE R October 01, 2022 2:19pm Name of Medical Power of Screening Technician ROCYE KESSINGE R October 11, 2022 4:15pm Advance Directives Yes March 12, 2016 2:58pm Living Will Yes October 11, 2022 4:15pm Power of Screening Technician Yes October 11 4:15pm Advance Directive Response Recorded Date/ Time Name of Medical Power of Screening Technician Elijah Kessinge r July 10, 2022 7:37pm Name of Medical Power of Screening Technician Elijah Kessinge r July 18, 2022 3:48am Name of Medical Power of Screening Technician Elijah Kessinge r- August 01, 2022 12:29am Name of Medical Power of Screening Technician ELIJAH KESSINGE R October 01, 2022 2:19pm Name of Medical Power of Screening Technician ROCYE KESSINGE R October 11, 2022 4:15pm Name of Medical Power of Screening Technician November 04, 2022 6:03pm Advance Directives Yes March 12, 2016 2:58pm Living Will Yes November 04, 2022 6:03pm Power of Screening Technician Yes November 04 6:03pm Advance Directive Response Recorded Date/ Time Name of Medical Power of Screening Technician ELIJAH KESSINGE R October 01, 2022 2:19pm Name of Medical Power of Screening Technician JENNA MENDOZA R October 11, 2022 4:15pm Name of Medical Power of Screening Technician November 04, 2022 6:03pm Advance Directives Yes March 12, 2016 2:58pm Living Will Yes November 04, 2022 6:03pm Power of Screening Technician Yes November 04 6:03pm Advance Directive Response Recorded Date/ Time Name of Medical Power of Screening Technician November 04, 2022 6:03pm Advance Directives Yes March 12, 2016 2:58pm Living Will No February 13, 2023 6:15pm Power of Screening Technician No February 13 6:15pm Advance Directive Response Recorded Date/ Time Advance Directives Yes March 12, 2016 2:58pm Living Will No February 13, 2023 6:15pm Power of Screening Technician No February 13 6:15pm Advance Directive Response Recorded Date/ Time Name of Medical Power of Screening Technician September 16, 2023 6:19pm Advance Directives Yes March 12, 2016 1:58pm Living Will Yes September 16, 2023 6:19pm Power of Screening Technician Yes September 15 6:19pm Advance Directive Response Recorded Date/ Time Name of Medical Power of Screening Technician . September 21, 2023 1:29am Advance Directives Yes March 12, 2016 1:58pm Living Will Yes September 21, 2023 1:29am Power of Screening Technician Yes September 20 1:29am Name of Medical Power of Screening Technician September 16, 2023 6:19pm Advance Directive Response Recorded Date/ Time Name of Medical Power of Screening Technician . September 21, 2023 2:29am Name of Medical Power of Screening Technician PAM GREGORY October 01, 2023 3:17pm Advance Directives Yes March 12, 2016 2:58pm Living Will Yes October 01, 2023 3:17pm Power of Screening Technician Yes September 30 3:17pm Name of Medical Power of Screening Technician September 16, 2023 7:19pm Advance Directive Response Recorded Date/ Time Name of Medical Power of Screening Technician . September 21, 2023 2:29am Name of Medical Power of Screening Technician PAM GREGORY October 01, 2023 3:17pm Name of Medical Power of Screening Technician September 16, 2023 7:19pm Name of Medical Power of Screening Technician recalled October 28, 2023 7:21pm Advance Directives Yes March 12, 2016 2:58pm Living Will Yes October 28, 2023 7:21pm Power of Screening Technician Yes October 27 7:21pm Advance Directive Response Recorded Date/ Time Name of Medical Power of Screening Technician . September 21, 2023 2:29am Name of Medical Power of Screening Technician PAM GREGORY October 01, 2023 3:17pm Name of Medical Power of Screening Technician or son - pt unsure November 06, 2023 7:49pm Advance Directives Yes March 12, 2016 2:58pm Living Will Yes November 06, 2023 7:49pm Power of Screening Technician Yes November 05 7:49pm Name of Medical Power of Screening Technician September 16, 2023 7:19pm Name of Medical Power of Screening Technician recalled October 28, 2023 7:21pm Advance Directive Response Recorded Date/ Time Name of Medical Power of Screening Technician . September 21, 2023 2:29am Name of Medical Power of Screening Technician PAM GREGORY October 01, 2023 3:17pm Name of Medical Power of Screening Technician or son - pt unsure November 06, 2023 7:49pm Name of Medical Power of Screening Technician September 16, 2023 7:19pm Name of Medical Power of Screening Technician recalled October 28, 2023 7:21pm Name of Medical Power of Screening Technician November 07, 2023 4:30pm Advance Directives Yes March 12, 2016 2:58pm Living Will Yes November 07, 2023 4:30pm Power of Screening Technician Yes November 06 4:30pm Advance Directive Response Recorded Date/ Time Name of Medical Power of Screening Technician . September 21, 2023 2:29am Name of Medical Power of Screening Technician PAM GREGORY October 01, 2023 3:17pm Name of Medical Power of Screening Technician or son - pt unsure November 06, 2023 7:49pm Name of Medical Power of Screening Technician September 16, 2023 7:19pm Name of Medical Power of Screening Technician recalled October 28, 2023 7:21pm Name of Medical Power of Screening Technician November 07, 2023 4:30pm Name of Medical Power of Screening Technician elijah kidd November 28, 2023 8:08pm Advance Directives Yes March 12, 2016 2:58pm Living Will Yes November 28, 2023 8 :08pm Power of Screening Technician Yes November 28, 2023 8:08pm Documents on File Type Date 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 Advance Directive(s) 10/04/2024 2:00 PM Advance Directive Response Recorded Date/ Time Living Will Yes May 25 4:47am Power of Screening Technician Yes May 25, 2024 4:47am Name of Medical Power of Screening Technician May 25, 2024 4:47am Living Will Yes May 27, 6:39pm Power of Screening Technician Yes May 27, 2024 6:39pm Name of Medical Power of Screening Technician May 27, 2024 6:39pm Living Will No June 08, 024 5:00pm Power of Screening Technician No June 08, 2024 5:00pm Living Will Yes July 02, 10:07pm Power of Screening Technician Yes July 02, 2024 10:07pm Name of Medical Power of Screening Technician elijah mendoza r July 02, 2024 10:07pm Living Will Yes July 28 8:34pm Power of Screening Technician Yes July 28, 2024 8:34pm Name of Medical Power of Screening Technician July 28, 2024 8:34pm Living Will Yes September 20, 2024 7:05pm Power of Screening Technician Yes September 20 7:05pm Name of Medical Power of Screening Technician hayden September 20, 2024 7:05pm Advance Directives Yes March 12, 2016 1:58pm Advance Directive Response Recorded Date/ Time Living Will No September 21, 2024 6:25am Power of Screening Technician No September 21 6:25am Living Will Yes May 25 4:47am Power of Screening Technician Yes May 25, 2024 4:47am Name of Medical Power of Screening Technician May 25, 2024 4:47am Living Will Yes May 27 6:39pm Power of Screening Technician Yes May 27, 2024 6:39pm Name of Medical Power of Screening Technician May 27, 2024 6:39pm Living Will No June 08, 024 5:00pm Power of Screening Technician No June 08, 2024 5:00pm Living Will Yes July 02 024 10:07pm Power of Screening Technician Yes July 02, 2024 10:07pm Name of Medical Power of Screening Technician elijah sukhjinderinge r July 02, 2024 10:07pm Living Will Yes July 28 8:34pm Power of Screening Technician Yes July 28, 2024 8:34pm Name of Medical Power of Screening Technician July 28, 2024 8:34pm Living Will Yes September 20, 2024 7:05pm Power of Screening Technician Yes September 20 7:05pm Name of Medical Power of Screening Technician hayden September 20, 2024 7:05pm Advance Directives Yes March 12, 2016 1:58pm Advance Directive Response Recorded Date/ Time Living Will No September 21, 2024 7:25am Power of Screening Technician No September 21 7:25am Living Will Yes May 27 7:39pm Power of Screening Technician Yes May 27, 2024 7:39pm Name of Medical Power of Screening Technician May 27, 2024 7:39pm Living Will No June 08 024 6:00pm Power of Screening Technician No June 08, 2024 6:00pm Living Will Yes July 02 11:07pm Power of Screening Technician Yes July 02, 2024 11:07pm Name of Medical Power of Screening Technician elijah mendoza r July 02, 2024 11:07pm Living Will Yes July 28 9:34pm Power of Screening Technician Yes July 28, 2024 9:34pm Name of Medical Power of Screening Technician July 28, 2024 9:34pm Living Will Yes September 20, 2024 8:05pm Power of Screening Technician Yes September 20 8:05pm Name of Medical Power of Screening Technician hayden September 20, 2024 8:05pm Living Will No September 23, 2024 9:09pm Power of Screening Technician No September 23 9:09pm Advance Directives Yes March 12, 2016 2:58pm Documents on File Type Date 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 No September 21, 2024 7:25am Living Will Yes July 02 024 11:07pm Do you have a Healthcare Pow er of Screening Technician? Yes July 02, 2024 11:07pm Name of Medical Power of Screening Technician elijah snyder July 02, 2024 11:07pm Living Will Yes July 28 9:34pm Do you have a Healthcare Pow er of Screening Technician? Yes July 28, 2024 9:34pm Name of Medical Power of Screening Technician July 28, 2024 9:34pm Living Will Yes September 20, 2024 8:05pm Do you have a Healthcare Pow er of Screening Technician? Yes September 20, 2024 8:05pm Name of Medical Power of Screening Technician hayden September 20, 2024 8:05pm Living Will No September 23, 2024 9:09pm Do you have a Healthcare Pow er of Screening Technician? No September 23, 2024 9:09pm Living Will No October 19, 2024 9:41am Do you have a Healthcare Pow er of Screening Technician? No October 19, 2024 9:41am Advance Directives Yes March 12, 2016 2:58pm Advance Directive Response Recorded Date/ Time Living Will No September 21, 2024 7:25am Do you have a Healthcare Pow er of Screening Technician? No September 21, 2024 7:25am Living Will Yes October 24, 2024 8:44pm Do you have a Healthcare Pow er of Screening Technician? Yes October 24, 2024 8:44pm Name of Medical Power of Screening Technician Elijah October 24, 2024 8:44pm Living Will Yes July 02 024 11:07pm Do you have a Healthcare Pow er of Screening Technician? Yes July 02, 2024 11:07pm Name of Medical Power of Screening Technician elijah snyder July 02, 2024 11:07pm Living Will Yes July 28 9:34pm Do you have a Healthcare Pow er of Screening Technician? Yes July 28, 2024 9:34pm Name of Medical Power of Screening Technician July 28, 2024 9:34pm Living Will Yes September 20, 2024 8:05pm Do you have a Healthcare Pow er of Screening Technician? Yes September 20, 2024 8:05pm Name of Medical Power of Screening Technician hayden September 20, 2024 8:05pm Living Will No September 23, 2024 9:09pm Do you have a Healthcare Pow er of Screening Technician? No September 23, 2024 9:09pm Living Will No October 19, 2024 9:41am Do you have a Healthcare Pow er of Screening Technician? No October 19, 2024 9:41am Advance Directives Yes March 12, 2016 2:58pm Advance Directive Response Recorded Date/ Time Living Will No September 21, 2024 7:25am Do you have a Healthcare Power of Screening Technician? No September 21, 2024 7:25am Living Will Yes October 24, 2024 8:44pm Do you have a Healthcare Power of Screening Technician? Yes October 24, 2024 8:44pm Name of Medical Power of Screening Technician Elijah October 24, 2024 8:44pm Living Will Yes November 03, 2024 6:56am Do you have a Healthcare Power of Screening Technician? Yes November 03, 2024 6:56am Name of Medical Power of Screening Technician Pt unaware November 03, 2024 6:56am Living Will Yes July 28 9:34pm Do you have a Healthcare Power of Screening Technician? Yes July 28, 2024 9:34pm Name of Medical Power of Screening Technician July 28, 2024 9:34pm Living Will Yes September 20, 2024 8:05pm Do you have a Healthcare Power of Screening Technician? Yes September 20, 2024 8:05pm Name of Medical Power of Screening Technician hayden September 20, 2024 8:05pm Living Will No September 23, 2024 9:09pm Do you have a Healthcare Power of Screening Technician? No September 23, 2024 9:09pm Living Will No October 19, 2024 9:41am Do you have a Healthcare Power of Screening Technician? No October 19, 2024 9:41am Advance Directives Yes March 12, 2016 2:58pm Advance Directive Response Recorded Date/ Time Living Will No September 21, 2024 7:25am Do you have a Healthcare Power of Screening Technician? No September 21, 2024 7:25am Living Will Yes October 24, 2024 8:44pm Do you have a Healthcare Power of Screening Technician? Yes October 24, 2024 8:44pm Name of Medical Power of Screening Technician Elijah October 24, 2024 8:44pm Living Will Yes November 03, 2024 6:56am Do you have a Healthcare Power of Screening Technician? Yes November 03, 2024 6:56am Name of Medical Power of Screening Technician Pt unaware November 03, 2024 6:56am Do you have a Healthcare Power of Screening Technician? Yes November 29, 2024 9:20pm Name of Medical Power of Screening Technician November 29, 2024 9:20pm Living Will Yes September 20, 2024 8:05pm Do you have a Healthcare Power of Screening Technician? Yes September 20, 2024 8:05pm Name of Medical Power of Screening Technician hayden September 20, 2024 8:05pm Living Will No September 23, 2024 9:09pm Do you have a Healthcare Power of Screening Technician? No September 23, 2024 9:09pm Living Will No October 19, 2024 9:41am Do you have a Healthcare Power of Screening Technician? No October 19, 2024 9:41am Advance Directives Yes March 12, 2016 2:58pm Advance Directive Response Recorded Date/ Time Living Will No September 21, 2024 7:25am Do you have a Healthcare Power of Screening Technician? No September 21, 2024 7:25am Living Will Yes October 24, 2024 8:44pm Do you have a Healthcare Power of Screening Technician? Yes October 24, 2024 8:44pm Name of Medical Power of Screening Technician Elijah October 24, 2024 8:44pm Living Will Yes November 03, 2024 6:56am Do you have a Healthcare Power of Screening Technician? Yes November 03, 2024 6:56am Name of Medical Power of Screening Technician Pt unaware November 03, 2024 6:56am Do you have a Healthcare Power of Screening Technician? Yes November 29, 2024 9:20pm Name of Medical Power of Screening Technician November 29, 2024 9:20pm Do you have a Healthcare Power of Screening Technician? No December 19, 2024 4:57pm Living Will Yes September 20, 2024 8:05pm Do you have a Healthcare Power of Screening Technician? Yes September 20, 2024 8:05pm Name of Medical Power of Screening Technician hayden September 20, 2024 8:05pm Living Will No September 23, 2024 9:09pm Do you have a Healthcare Power of Screening Technician? No September 23, 2024 9:09pm Living Will No October 19, 2024 9:41am Do you have a Healthcare Power of Screening Technician? No October 19, 2024 9:41am Advance Directives Yes March 12, 2016 2:58pm Medications Administered Section Inactive Administered Medications - [...] Given 10/29/2021 8:22 AM EDT 2 mg Given 10/29/2021 8:19 AM EDT 3 mg Reason for Referral Specialty Diagnoses / Procedures Referred By Contac t Referred To Contact General Surgery Diagnoses Colon cancer screening Procedures CONSULT TO GENERAL SURGERY OFFICE/OUTPATIENT [facility] 60-74 MINUTES Octavio Reza MD [address] [place] [address] Holland Carmichael MD [address] [place] [address] Referral ID Status Reason Start Date Expiration Date Visits Requested Visits Authorized [id number] Pending Review PCP Requested Referral 09/11/2021 09/11/2022 1 1 Specialty Diagnoses / Procedures Referred By Contac t Referred To Contact Orthopedics Diagnoses Pain of right upper extremity Procedures CONSULT PANEL TO ORTHOPAEDICS OFFICE/OUTPATIENT [facility] 60-74 MINUTES Wanda Phillips APRN.PLATE SLITTER AND INSPECTOR [address] [place] [address] Referral ID Status Reason Start Date Expiration Date Visits Requested Visits Authorized [id number] Pending Review PCP Requested Referral 12/17/2021 12/17/2022 1 1 Specialty Diagnoses / Procedures Referred By Contac t Referred To Contact XR IMAGING Diagnoses Pain of right upper extremity Procedures XR HUMERUS 2V AP/LAT RIGHT RADEX HUMERUS MINIMUM 2 VIEWS Wanda Phillips APRN.PLATE SLITTER AND INSPECTOR [address] [place] [address] Xr Imaging Referral ID Status Reason Start Date Expiration Date V isits Requested Visits Authorized [id number] Closed Auto-Generate d Referral 12/17/2021 01/16/2023 1 1 Referral ID Status Reason Start Date Expiration Date V isits Requested Visits Authorized [id number] Closed Auto-Generate d Referral 12/17/2021 01/16/2023 1 1 Specialty Diagnoses / Procedures Referred By Contac t Referred To Contact Octavio Reza MD [address] [place] [id number] Referral ID Status Reason Start Date Expiration Date Visits Re quested Visits Authorized [id number] Closed 1 1 Referral ID Status Reason Start Date Expiration Date Visits Re quested Visits Authorized [id number] Closed 1 1 Specialty Diagnoses / Procedures Referred By Contac t Referred To Contact Rheumatology Diagnoses Polyarthralgia Pain in finger of both hands Elevated C-reactive protein (CRP) Elevated sedimentation rate Procedures CONSULT TO RHEUM/IMMUN DISEASE OFFICE/OUTPATIENT [facility] 60 MINUTES Lydia Grande, CLINICAL LAW PROFESSOR.[employer] [address] [place] [address] Referral ID Status Reason Start Date Expiration Date Visits Requested Visits Authorized [id number] Authorized PCP Requested Referral 09/05/2023 09/04/2024 1 1 Specialty Diagnoses / Procedures Referred By Contac t Referred To Contact Endocrinology Diagnoses 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) Procedures CONSULT TO ENDOCRINOLOGY OFFICE/OUTPATIENT [facility] 60 MINUTES Lydia Grande, CLINICAL LAW PROFESSOR.[employer] [address] [place] [address] Referral ID Status Reason Start Date Expiration Date Visits Requested Visits Authorized [id number] Authorized PCP Requested Referral 11/08/2023 11/07/2024 1 1 Specialty Diagnoses / Procedures Referred By Contac t Referred To Contact Diagnoses Diabetes mellitus type 1, controlled, without complications (HCC) Procedures CONSULT TO DIABETES EDUCATION DSME/MNT MEDICAL NUTRITION ASSMT&IVNTJ INDIV EACH 15 NH MEDICAL NUTRITION ASSMT&IVNTJ INDIV EACH 15 [place] MEDICAL NUTRITION ASSMT&IVNTJ INDIV EACH 15 [place] MEDICAL NUTRITION ASSMT&IVNTJ INDIV EACH 15 NH Alyssa Mcgeee C, CLINICAL LAW PROFESSOR.PLATE SLITTER AND INSPECTOR [address] [place] [address] Referral ID Status Reason Start Date Expiration Date Visits Requested Visits Authorized [id number] Authorized PCP Requested Referral 12/07/2023 12/06/2024 1 1 Specialty Diagnoses / Procedures Referred By Contac t Referred To Contact Diagnoses Diabetes mellitus type 1, controlled, without complications (HCC) Procedures ENDOCRINOLOGY DIETITIAN VISIT (MNT) MEDICAL NUTRITION ASSMT&IVNTJ INDIV EACH 15 NH MEDICAL NUTRITION ASSMT&IVNTJ INDIV EACH 15 [place] MEDICAL NUTRITION ASSMT&IVNTJ INDIV EACH 15 NH MEDICAL NUTRITION ASSMT&IVNTJ INDIV EACH 15 NH JesseeAlyssae C, CLINICAL LAW PROFESSOR.PLATE SLITTER AND INSPECTOR [address] [place] [id number] Referral ID Status Reason Start Date Expiration Date Visits Requested Visits Authorized [id number] Authorized PCP Requested Referral 02/15/2024 02/14/2025 1 1 Specialty Diagnoses / Procedures Referred By Contac t Referred To Contact Diagnoses THAIS (obstructive sleep apnea) Procedures CONSULT TO SLEEP MEDICINE - ADULT OFFICE/OUTPATIENT [facility] 60 MINUTES Rehana Osorio, CLINICAL LAW PROFESSOR.PLATE SLITTER AND INSPECTOR [address] [place] [address] Referral ID Status Reason Start Date Expiration Date Visits Requested Visits Authorized [id number] Authorized PCP Requested Referral 02/13/2024 02/12/2025 1 1 Specialty Diagnoses / Procedures Referred By Contac t Referred To Contact Diagnoses 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) Davon Wolfe CLINICAL LAW PROFESSOR.PLATE SLITTER AND INSPECTOR [address] [place] [address] Referral ID Status Reason Start Date Expiration Date Visits Re quested Visits Authorized [id number] Closed 1 1 Specialty Diagnoses / Procedures Referred By Contac t Referred To Contact Diagnoses 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) Renetta Mcgee, CLINICAL LAW PROFESSOR.PLATE SLITTER AND INSPECTOR [address] [place] [phone] Referral ID Status Reason Start Date Expiration Date Visits Re quested Visits Authorized [id number] Closed 1 1 Specialty Diagnoses / Procedures Referred By Contac t Referred To Contact Diagnoses Severe persistent asthma without complication Octavio Reza MD [address] [place] [address] Referral ID Status Reason Start Date Expiration Date Visits Re quested Visits Authorized [id number] Closed 1 1 Chief Complaint and Reason for Visit Chief Complaint 6 M FU chest pain Reason for Visit Paroxysmal SVT (supr aventricular tachycardia) Essential hypertension Hyperlipidemia Chief Complaint 6 M FU chest pain SCREENING Reason for Visit Paroxysmal SVT (supr aventricular tachycardia) Essential hypertension Hyperlipidemia Chief Complaint 6 M FU ACUTE HYPOXIA GENERAL ILLNESS Reason for Visit Paroxysmal SVT (supr aventricular tachycardia) Essential hypertension Hyperlipidemia Hypoxia Chief Complaint 6 M FU ACUTE HYPOXIA GENERAL ILLNESS ACUTE HYPOXIA ACUTE HYPOXIA ACUTE HYPOXIA ACUTE HYPOXIA BILATERAL POST-INFLUENZA PNEUMONIA BILATERAL POST-INFLUENZA PNEUMONIA BILATERAL POST-INFLUENZA PNEUMONIA BILATERAL POST-INFLUENZA PNEUMONIA BILATERAL POST-INFLUENZA PNEUMONIA BILATERAL POST-INFLUENZA PNEUMONIA BILATERAL POST-INFLUENZA PNEUMONIA Reason for Visit Paroxysmal SVT (supr aventricular tachycardia) Essential hypertension Hyperlipidemia Hypoxia Acute hypokalemia Acute respiratory failure with hypoxia Bilateral pneumonia Hyperglycemia due to type 2 diabetes mellitus Asthma exacerbation in COPD Essential hypertension Hyperlipidemia Chief Complaint 6 M FU ACUTE HYPOXIA GENERAL ILLNESS ACUTE HYPOXIA ACUTE HYPOXIA ACUTE HYPOXIA ACUTE HYPOXIA BILATERAL POST-INFLUENZA PNEUMONIA BILATERAL POST-INFLUENZA PNEUMONIA BILATERAL POST-INFLUENZA PNEUMONIA BILATERAL POST-INFLUENZA PNEUMONIA BILATERAL POST-INFLUENZA PNEUMONIA BILATERAL POST-INFLUENZA PNEUMONIA BILATERAL POST-INFLUENZA PNEUMONIA FAILURE TO THRIVE,COVID Reason for Visit Paroxysmal SVT (supr aventricular tachycardia) Essential hypertension Hyperlipidemia Hypoxia Acute hypokalemia Acute respiratory failure with hypoxia Bilateral pneumonia Hyperglycemia due to type 2 diabetes mellitus Asthma exacerbation in COPD Essential hypertension Hyperlipidemia Chief Complaint 6 M FU ACUTE HYPOXIA GENERAL ILLNESS ACUTE HYPOXIA ACUTE HYPOXIA ACUTE HYPOXIA ACUTE HYPOXIA BILATERAL POST-INFLUENZA PNEUMONIA BILATERAL POST-INFLUENZA PNEUMONIA BILATERAL POST-INFLUENZA PNEUMONIA BILATERAL POST-INFLUENZA PNEUMONIA BILATERAL POST-INFLUENZA PNEUMONIA BILATERAL POST-INFLUENZA PNEUMONIA BILATERAL POST-INFLUENZA PNEUMONIA FAILURE TO THRIVE,COVID FAILURE TO THRIVE,COVID FAILURE TO THRIVE,COVID Reason for Visit Paroxysmal SVT (supr aventricular tachycardia) Essential hypertension Hyperlipidemia Hypoxia Acute respiratory failure with hypoxia Bilateral pneumonia Hyperglycemia due to type 2 diabetes mellitus Asthma exacerbation in COPD Essential hypertension Hyperlipidemia Acute hypokalemia Bilateral pneumonia Hypoxia Acute hypokalemia Chief Complaint 6 M FU ACUTE HYPOXIA GENERAL ILLNESS ACUTE HYPOXIA ACUTE HYPOXIA ACUTE HYPOXIA ACUTE HYPOXIA BILATERAL POST-INFLUENZA PNEUMONIA BILATERAL POST-INFLUENZA PNEUMONIA BILATERAL POST-INFLUENZA PNEUMONIA BILATERAL POST-INFLUENZA PNEUMONIA BILATERAL POST-INFLUENZA PNEUMONIA DR ORDER BILATERAL POST-INFLUENZA PNEUMONIA BILATERAL POST-INFLUENZA PNEUMONIA FAILURE TO THRIVE,COVID FAILURE TO THRIVE,COVID FAILURE TO THRIVE,COVID CHEST PAIN Reason for Visit Hypoxia Acute hypokalemia Acute respiratory failure with hypoxia Asthma exacerbation in COPD Bilateral pneumonia Acute hypokalemia Bilateral pneumonia Hypoxia Chief Complaint 6 M FU ACUTE HYPOXIA GENERAL ILLNESS ACUTE HYPOXIA ACUTE HYPOXIA ACUTE HYPOXIA ACUTE HYPOXIA BILATERAL POST-INFLUENZA PNEUMONIA BILATERAL POST-INFLUENZA PNEUMONIA BILATERAL POST-INFLUENZA PNEUMONIA BILATERAL POST-INFLUENZA PNEUMONIA BILATERAL POST-INFLUENZA PNEUMONIA DR ORDER BILATERAL POST-INFLUENZA PNEUMONIA BILATERAL POST-INFLUENZA PNEUMONIA FAILURE TO THRIVE,COVID FAILURE TO THRIVE,COVID FAILURE TO THRIVE,COVID CHEST PAIN PALPITATIONS Reason for Visit Hypoxia Acute hypokalemia Acute respiratory failure with hypoxia Asthma exacerbation in COPD Bilateral pneumonia Acute hypokalemia Bilateral pneumonia Hypoxia Chief Complaint ACUTE HYPOXIA GENERAL ILLNESS ACUTE HYPOXIA ACUTE HYPOXIA ACUTE HYPOXIA ACUTE HYPOXIA BILATERAL POST-INFLUENZA PNEUMONIA BILATERAL POST-INFLUENZA PNEUMONIA BILATERAL POST-INFLUENZA PNEUMONIA BILATERAL POST-INFLUENZA PNEUMONIA BILATERAL POST-INFLUENZA PNEUMONIA DR ORDER BILATERAL POST-INFLUENZA PNEUMONIA BILATERAL POST-INFLUENZA PNEUMONIA FAILURE TO THRIVE,COVID FAILURE TO THRIVE,COVID FAILURE TO THRIVE,COVID CHEST PAIN PALPITATIONS CHEST PAIN Reason for Visit Hypoxia Acute hypokalemia Acute respiratory failure with hypoxia Asthma exacerbation in COPD Bilateral pneumonia Acute hypokalemia Bilateral pneumonia Hypoxia Chief Complaint CHEST PAIN PALPITATIONS CHEST PAIN S/P [facility] 11-04-22 CHEST PAIN Reason for Visit CRAWLEY (dyspnea on exer tion) Chief Complaint CHEST PAIN S/P [facility] 11-04-22 CHEST PAIN REACTION Reason for Visit CRAWLEY (dyspnea on exer tion) Chief Complaint CHEST PAIN REACTION SCREENING Chief Complaint palpitations palpitations 48 HOUR HALTER MONITER Chief Complaint palpitations palpitations 48 HOUR HALTER MONITER palpitations Chief Complaint palpitations 48 HOUR HALTER MONITER PALPS, DYSRHYTHMIA palpitations S/P [facility] 03/06 COUGH Reason for Visit Essential hypertensi on Hyperlipidemia Paroxysmal SVT (supraventricular tachycardia) Chief Complaint palpitations 48 HOUR HALTER MONITER PALPS, DYSRHYTHMIA palpitations S/P [facility] 03/06 COUGH HYPERGLYCEMIA Reason for Visit Essential hypertensi on Hyperlipidemia Paroxysmal SVT (supraventricular tachycardia) Chief Complaint palpitations 48 HOUR HALTER MONITER PALPS, DYSRHYTHMIA palpitations S/P [facility] 03/06 COUGH HYPERGLYCEMIA PALPITATIONS Reason for Visit Essential hypertensi on Hyperlipidemia Paroxysmal SVT (supraventricular tachycardia) Chief Complaint palpitations 48 HOUR HALTER MONITER PALPS, DYSRHYTHMIA palpitations S/P [facility] 03/06 COUGH HYPERGLYCEMIA PALPITATIONS blood sugar issues Reason for Visit Essential hypertensi on Hyperlipidemia Paroxysmal SVT (supraventricular tachycardia) Chief Complaint palpitations 48 HOUR HALTER MONITER PALPS, DYSRHYTHMIA palpitations S/P [facility] 03/06 COUGH HYPERGLYCEMIA PALPITATIONS blood sugar issues HYPERGLYCEMIA Reason for Visit Essential hypertensi on Hyperlipidemia Paroxysmal SVT (supraventricular tachycardia) Chief Complaint Admit Date various complaint May 25, 2024 4 :43am palpitations May 27, 2024 5:47pm SOB June 07, 2024 6:05am PALPS, ABN EKG June 07, 2024 9:08am Shortness of breath June 07, 2024 1:23pm hyperglycemia June 08, 2024 4:40pm ABN Stress/ See Note June 13, 2024 2:00pm gen, chest July 02, 2024 8:02pm ANXIETY July 28, 2024 8 :18pm GEN. ILLNESS September 20, 2024 5:48 pm Reason for Visit Admit Date Abnormal stress test June 13, 2024 2:00pm THAIS (obstructive sleep apnea) May 192023 2:00pm Essential hypertension June 13 2:00pm Paroxysmal SVT (supraventricular tachyca rdia) June 13, 2024 2:00pm Chief Complaint Admit Date various complaint May 25, 2024 4 :43am palpitations May 27, 2024 5:47pm SOB June 07, 2024 6:05am PALPS, ABN EKG June 07, 2024 9:08am Shortness of breath June 07, 2024 1:23pm hyperglycemia June 08, 2024 4:40pm ABN Stress/ See Note June 13, 2024 2:00pm gen, chest July 02, 2024 8:02pm ANXIETY July 28, 2024 8 :18pm GEN. ILLNESS September 20, 2024 5:48 pm hyperglycemia September 21, 2024 6:21 am Chief Complaint Admit Date palpitations May 27, 2024 5:47pm SOB June 07, 2024 6:05am PALPS, ABN EKG June 07, 2024 9:08am Shortness of breath June 07, 2024 1:23pm hyperglycemia June 08, 2024 4:40pm ABN Stress/ See Note June 13, 2024 2:00pm gen, chest July 02, 2024 8:02pm ANXIETY July 28, 2024 8 :18pm GEN. ILLNESS September 20, 2024 5:48 pm hyperglycemia September 21, 2024 6:21 am DIARRHEA September 23, 2024 7:25 pm Chief Complaint Admit Date gen, chest July 02, 2024 8:02pm ANXIETY July 28, 2024 8 :18pm GEN. ILLNESS September 20, 2024 5:48 pm hyperglycemia September 21, 2024 6:21 am DIARRHEA September 23, 2024 7:25 pm leg October 19, 2024 9:27 am Chief Complaint Admit Date gen, chest July 02, 2024 8:02pm ANXIETY July 28, 2024 8 :18pm GEN. ILLNESS September 20, 2024 5:48 pm hyperglycemia September 21, 2024 6:21 am DIARRHEA September 23, 2024 7:25 pm leg October 19, 2024 9:27 am LOWER EXT October 24, 2024 8:22 pm Chief Complaint Admit Date ANXIETY July 28, 2024 8 :18pm GEN. ILLNESS September 20, 2024 5:48 pm hyperglycemia September 21, 2024 6:21 am DIARRHEA September 23, 2024 7:25 pm leg October 19, 2024 9:27 am LOWER EXT October 24, 2024 8:22 pm lower extremity check November 03, 2024 6 :54am Chief Complaint Admit Date GEN. ILLNESS September 20, 2024 5:48 pm hyperglycemia September 21, 2024 6:21 am DIARRHEA September 23, 2024 7:25 pm leg October 19, 2024 9:27 am LOWER EXT October 24, 2024 8:22 pm lower extremity check November 03, 2024 6 :54am 6 M FU November 15, 2024 8:05am HYPERGLYCEMIA November 29, 2024 9:12p m Reason for Visit Admit Date Abnormal stress test November 15, 2024 8:05a m THAIS (obstructive sleep apnea) November 15 8:05am Essential hypertension November 15, 2024 8:0 5am Paroxysmal SVT (supraventricular tachyca rdia) November 15, 2024 8:05am Chief Complaint Admit Date GEN. ILLNESS September 20, 2024 5:48 pm hyperglycemia September 21, 2024 6:21 am DIARRHEA September 23, 2024 7:25 pm leg October 19, 2024 9:27 am LOWER EXT October 24, 2024 8:22 pm lower extremity check November 03, 2024 6 :54am LLE PAIN November 03, 2024 10: 04am 6 M FU November 15, 2024 8:05am HYPERGLYCEMIA November 29, 2024 9:12p m hyperglycemia December 19, 2024 3:47p m Family History Relationship Condition Age at Onset Recorded Date/T travis mother Aortic valve stenosis Unknown Presence of permanent cardiac pacemaker U nknown Summary Purpose Additional Source Comments Source Comments (unrecognize d section and content) In the event this informatio n is protected by the Federal Confidentiality of Alcohol and Drug Abuse Patient Records regulations: The Federal rules restrict any use of the information to criminally investigate or prosecute any alcohol or drug abuse patient.[facility]In the event this information is protected by the Federal Confidentiality of Alcohol and Drug Abuse Patient Records regulations: The Federal rules restrict any use of the information to criminally investigate or prosecute any alcohol or drug abuse patient.[facility] HospitalIn the event this information is protected by the Federal Confidentiality of Alcohol and Drug Abuse Patient Records regulations: The Federal rules restrict any use of the information to criminally investigate or prosecute any alcohol or drug abuse patient.[facility] HospitalIn the event this information is protected by the Federal Confidentiality of Alcohol and Drug Abuse Patient Records regulations: The Federal rules restrict any use of the information to criminally investigate or prosecute any alcohol or drug abuse patient.[facility] HospitalIn the event this information is protected by the Federal Confidentiality of Alcohol and Drug Abuse Patient Records regulations: The Federal rules restrict any use of the information to criminally investigate or prosecute any alcohol or drug abuse patient.[facility] HospitalIn the event this information is protected by the Federal Confidentiality of Alcohol and Drug Abuse Patient Records regulations: The Federal rules restrict any use of the information to criminally investigate or prosecute any alcohol or drug abuse patient.[facility] HospitalIn the event this information is protected by the Federal Confidentiality of Alcohol and Drug Abuse Patient Records regulations: The Federal rules restrict any use of the information to criminally investigate or prosecute any alcohol or drug abuse patient.[facility] HospitalIn the event this information is protected by the Federal Confidentiality of Alcohol and Drug Abuse Patient Records regulations: The Federal rules restrict any use of the information to criminally investigate or prosecute any alcohol or drug abuse patient.[facility] HospitalIn the event this information is protected by the Federal Confidentiality of Alcohol and Drug Abuse Patient Records regulations: The Federal rules restrict any use of the information to criminally investigate or prosecute any alcohol or drug abuse patient.[facility] HospitalIn the event this information is protected by the Federal Confidentiality of Alcohol and Drug Abuse Patient Records regulations: The Federal rules restrict any use of the information to criminally investigate or prosecute any alcohol or drug abuse patient.[facility] HospitalIn the event this information is protected by the Federal Confidentiality of Alcohol and Drug Abuse Patient Records regulations: The Federal rules restrict any use of the information to criminally investigate or prosecute any alcohol or drug abuse patient.[facility] HospitalIn the event this information is protected by the Federal Confidentiality of Alcohol and Drug Abuse Patient Records regulations: The Federal rules restrict any use of the information to criminally investigate or prosecute any alcohol or drug abuse patient.[facility] HospitalIn the event this information is protected by the Federal Confidentiality of Alcohol and Drug Abuse Patient Records regulations: The Federal rules restrict any use of the information to criminally investigate or prosecute any alcohol or drug abuse patient.[facility] HospitalIn the event this information is protected by the Federal Confidentiality of Alcohol and Drug Abuse Patient Records regulations: The Federal rules restrict any use of the information to criminally investigate or prosecute any alcohol or drug abuse patient.[facility] HospitalIn the event this information is protected by the Federal Confidentiality of Alcohol and Drug Abuse Patient Records regulations: The Federal rules restrict any use of the information to criminally investigate or prosecute any alcohol or drug abuse patient.[facility] HospitalIn the event this information is protected by the Federal Confidentiality of Alcohol and Drug Abuse Patient Records regulations: The Federal rules restrict any use of the information to criminally investigate or prosecute any alcohol or drug abuse patient.[facility] HospitalIn the event this information is protected by the Federal Confidentiality of Alcohol and Drug Abuse Patient Records regulations: The Federal rules restrict any use of the information to criminally investigate or prosecute any alcohol or drug abuse patient.[facility] HospitalIn the event this information is protected by the Federal Confidentiality of Alcohol and Drug Abuse Patient Records regulations: The Federal rules restrict any use of the information to criminally investigate or prosecute any alcohol or drug abuse patient.[facility] HospitalIn the event this information is protected by the Federal Confidentiality of Alcohol and Drug Abuse Patient Records regulations: The Federal rules restrict any use of the information to criminally investigate or prosecute any alcohol or drug abuse patient.[facility] HospitalIn the event this information is protected by the Federal Confidentiality of Alcohol and Drug Abuse Patient Records regulations: The Federal rules restrict any use of the information to criminally investigate or prosecute any alcohol or drug abuse patient.[facility] HospitalIn the event this information is protected by the Federal Confidentiality of Alcohol and Drug Abuse Patient Records regulations: The Federal rules restrict any use of the information to criminally investigate or prosecute any alcohol or drug abuse patient.[facility] HospitalIn the event this information is protected by the Federal Confidentiality of Alcohol and Drug Abuse Patient Records regulations: The Federal rules restrict any use of the information to criminally investigate or prosecute any alcohol or drug abuse patient.[facility] HospitalIn the event this information is protected by the Federal Confidentiality of Alcohol and Drug Abuse Patient Records regulations: The Federal rules restrict any use of the information to criminally investigate or prosecute any alcohol or drug abuse patient.[facility] HospitalIn the event this information is protected by the Federal Confidentiality of Alcohol and Drug Abuse Patient Records regulations: The Federal rules restrict any use of the information to criminally investigate or prosecute any alcohol or drug abuse patient.[facility] HospitalIn the event this information is protected by the Federal Confidentiality of Alcohol and Drug Abuse Patient Records regulations: The Federal rules restrict any use of the information to criminally investigate or prosecute any alcohol or drug abuse patient.[facility] HospitalIn the event this information is protected by the Federal Confidentiality of Alcohol and Drug Abuse Patient Records regulations: The Federal rules restrict any use of the information to criminally investigate or prosecute any alcohol or drug abuse patient.[facility] HospitalIn the event this information is protected by the Federal Confidentiality of Alcohol and Drug Abuse Patient Records regulations: The Federal rules restrict any use of the information to criminally investigate or prosecute any alcohol or drug abuse patient.[facility] HospitalIn the event this information is protected by the Federal Confidentiality of Alcohol and Drug Abuse Patient Records regulations: The Federal rules restrict any use of the information to criminally investigate or prosecute any alcohol or drug abuse patient.[facility] HospitalIn the event this information is protected by the Federal Confidentiality of Alcohol and Drug Abuse Patient Records regulations: The Federal rules restrict any use of the information to criminally investigate or prosecute any alcohol or drug abuse patient.[facility] HospitalIn the event this information is protected by the Federal Confidentiality of Alcohol and Drug Abuse Patient Records regulations: The Federal rules restrict any use of the information to criminally investigate or prosecute any alcohol or drug abuse patient.[facility] HospitalIn the event this information is protected by the Federal Confidentiality of Alcohol and Drug Abuse Patient Records regulations: The Federal rules restrict any use of the information to criminally investigate or prosecute any alcohol or drug abuse patient.[facility] HospitalIn the event this information is protected by the Federal Confidentiality of Alcohol and Drug Abuse Patient Records regulations: The Federal rules restrict any use of the information to criminally investigate or prosecute any alcohol or drug abuse patient.[facility] HospitalIn the event this information is protected by the Federal Confidentiality of Alcohol and Drug Abuse Patient Records regulations: The Federal rules restrict any use of the information to criminally investigate or prosecute any alcohol or drug abuse patient.[facility] HospitalIn the event this information is protected by the Federal Confidentiality of Alcohol and Drug Abuse Patient Records regulations: The Federal rules restrict any use of the information to criminally investigate or prosecute any alcohol or drug abuse patient.[facility] HospitalIn the event this information is protected by the Federal Confidentiality of Alcohol and Drug Abuse Patient Records regulations: The Federal rules restrict any use of the information to criminally investigate or prosecute any alcohol or drug abuse patient.[facility] HospitalIn the event this information is protected by the Federal Confidentiality of Alcohol and Drug Abuse Patient Records regulations: The Federal rules restrict any use of the information to criminally investigate or prosecute any alcohol or drug abuse patient.[facility] HospitalIn the event this information is protected by the Federal Confidentiality of Alcohol and Drug Abuse Patient Records regulations: The Federal rules restrict any use of the information to criminally investigate or prosecute any alcohol or drug abuse patient.[facility] HospitalIn the event this information is protected by the Federal Confidentiality of Alcohol and Drug Abuse Patient Records regulations: The Federal rules restrict any use of the information to criminally investigate or prosecute any alcohol or drug abuse patient.[facility] HospitalIn the event this information is protected by the Federal Confidentiality of Alcohol and Drug Abuse Patient Records regulations: The Federal rules restrict any use of the information to criminally investigate or prosecute any alcohol or drug abuse patient.[facility] HospitalIn the event this information is protected by the Federal Confidentiality of Alcohol and Drug Abuse Patient Records regulations: The Federal rules restrict any use of the information to criminally investigate or prosecute any alcohol or drug abuse patient.[facility] HospitalIn the event this information is protected by the Federal Confidentiality of Alcohol and Drug Abuse Patient Records regulations: The Federal rules restrict any use of the information to criminally investigate or prosecute any alcohol or drug abuse patient.[facility] HospitalIn the event this information is protected by the Federal Confidentiality of Alcohol and Drug Abuse Patient Records regulations: The Federal rules restrict any use of the information to criminally investigate or prosecute any alcohol or drug abuse patient.[facility] HospitalIn the event this information is protected by the Federal Confidentiality of Alcohol and Drug Abuse Patient Records regulations: The Federal rules restrict any use of the information to criminally investigate or prosecute any alcohol or drug abuse patient.[facility] HospitalIn the event this information is protected by the Federal Confidentiality of Alcohol and Drug Abuse Patient Records regulations: The Federal rules restrict any use of the information to criminally investigate or prosecute any alcohol or drug abuse patient.[facility] HospitalIn the event this information is protected by the Federal Confidentiality of Alcohol and Drug Abuse Patient Records regulations: The Federal rules restrict any use of the information to criminally investigate or prosecute any alcohol or drug abuse patient.[facility] HospitalIn the event this information is protected by the Federal Confidentiality of Alcohol and Drug Abuse Patient Records regulations: The Federal rules restrict any use of the information to criminally investigate or prosecute any alcohol or drug abuse patient.[facility] HospitalIn the event this information is protected by the Federal Confidentiality of Alcohol and Drug Abuse Patient Records regulations: The Federal rules restrict any use of the information to criminally investigate or prosecute any alcohol or drug abuse patient.[facility] HospitalIn the event this information is protected by the Federal Confidentiality of Alcohol and Drug Abuse Patient Records regulations: The Federal rules restrict any use of the information to criminally investigate or prosecute any alcohol or drug abuse patient.[facility] HospitalIn the event this information is protected by the Federal Confidentiality of Alcohol and Drug Abuse Patient Records regulations: The Federal rules restrict any use of the information to criminally investigate or prosecute any alcohol or drug abuse patient.[facility] HospitalIn the event this information is protected by the Federal Confidentiality of Alcohol and Drug Abuse Patient Records regulations: The Federal rules restrict any use of the information to criminally investigate or prosecute any alcohol or drug abuse patient.[facility] HospitalIn the event this information is protected by the Federal Confidentiality of Alcohol and Drug Abuse Patient Records regulations: The Federal rules restrict any use of the information to criminally investigate or prosecute any alcohol or drug abuse patient.[facility] HospitalIn the event this information is protected by the Federal Confidentiality of Alcohol and Drug Abuse Patient Records regulations: The Federal rules restrict any use of the information to criminally investigate or prosecute any alcohol or drug abuse patient.[facility] HospitalIn the event this information is protected by the Federal Confidentiality of Alcohol and Drug Abuse Patient Records regulations: The Federal rules restrict any use of the information to criminally investigate or prosecute any alcohol or drug abuse patient.[facility] HospitalIn the event this information is protected by the Federal Confidentiality of Alcohol and Drug Abuse Patient Records regulations: The Federal rules restrict any use of the information to criminally investigate or prosecute any alcohol or drug abuse patient.[facility] HospitalIn the event this information is protected by the Federal Confidentiality of Alcohol and Drug Abuse Patient Records regulations: The Federal rules restrict any use of the information to criminally investigate or prosecute any alcohol or drug abuse patient.[facility] HospitalIn the event this information is protected by the Federal Confidentiality of Alcohol and Drug Abuse Patient Records regulations: The Federal rules restrict any use of the information to criminally investigate or prosecute any alcohol or drug abuse patient.[facility] HospitalIn the event this information is protected by the Federal Confidentiality of Alcohol and Drug Abuse Patient Records regulations: The Federal rules restrict any use of the information to criminally investigate or prosecute any alcohol or drug abuse patient.[facility] HospitalIn the event this information is protected by the Federal Confidentiality of Alcohol and Drug Abuse Patient Records regulations: The Federal rules restrict any use of the information to criminally investigate or prosecute any alcohol or drug abuse patient.[facility] HospitalIn the event this information is protected by the Federal Confidentiality of Alcohol and Drug Abuse Patient Records regulations: The Federal rules restrict any use of the information to criminally investigate or prosecute any alcohol or drug abuse patient.[facility] HospitalIn the event this information is protected by the Federal Confidentiality of Alcohol and Drug Abuse Patient Records regulations: The Federal rules restrict any use of the information to criminally investigate or prosecute any alcohol or drug abuse patient.[facility] HospitalIn the event this information is protected by the Federal Confidentiality of Alcohol and Drug Abuse Patient Records regulations: The Federal rules restrict any use of the information to criminally investigate or prosecute any alcohol or drug abuse patient.[facility] HospitalIn the event this information is protected by the Federal Confidentiality of Alcohol and Drug Abuse Patient Records regulations: The Federal rules restrict any use of the information to criminally investigate or prosecute any alcohol or drug abuse patient.[facility] HospitalIn the event this information is protected by the Federal Confidentiality of Alcohol and Drug Abuse Patient Records regulations: The Federal rules restrict any use of the information to criminally investigate or prosecute any alcohol or drug abuse patient.[facility] HospitalIn the event this information is protected by the Federal Confidentiality of Alcohol and Drug Abuse Patient Records regulations: The Federal rules restrict any use of the information to criminally investigate or prosecute any alcohol or drug abuse patient.[facility] HospitalIn the event this information is protected by the Federal Confidentiality of Alcohol and Drug Abuse Patient Records regulations: The Federal rules restrict any use of the information to criminally investigate or prosecute any alcohol or drug abuse patient.[facility] HospitalIn the event this information is protected by the Federal Confidentiality of Alcohol and Drug Abuse Patient Records regulations: The Federal rules restrict any use of the information to criminally investigate or prosecute any alcohol or drug abuse patient.[facility] HospitalIn the event this information is protected by the Federal Confidentiality of Alcohol and Drug Abuse Patient Records regulations: The Federal rules restrict any use of the information to criminally investigate or prosecute any alcohol or drug abuse patient.[facility] HospitalIn the event this information is protected by the Federal Confidentiality of Alcohol and Drug Abuse Patient Records regulations: The Federal rules restrict any use of the information to criminally investigate or prosecute any alcohol or drug abuse patient.[facility] HospitalIn the event this information is protected by the Federal Confidentiality of Alcohol and Drug Abuse Patient Records regulations: The Federal rules restrict any use of the information to criminally investigate or prosecute any alcohol or drug abuse patient.[facility] HospitalIn the event this information is protected by the Federal Confidentiality of Alcohol and Drug Abuse Patient Records regulations: The Federal rules restrict any use of the information to criminally investigate or prosecute any alcohol or drug abuse patient.[facility] HospitalIn the event this information is protected by the Federal Confidentiality of Alcohol and Drug Abuse Patient Records regulations: The Federal rules restrict any use of the information to criminally investigate or prosecute any alcohol or drug abuse patient.[facility] HospitalIn the event this information is protected by the Federal Confidentiality of Alcohol and Drug Abuse Patient Records regulations: The Federal rules restrict any use of the information to criminally investigate or prosecute any alcohol or drug abuse patient.[facility] HospitalIn the event this information is protected by the Federal Confidentiality of Alcohol and Drug Abuse Patient Records regulations: The Federal rules restrict any use of the information to criminally investigate or prosecute any alcohol or drug abuse patient.[facility] HospitalIn the event this information is protected by the Federal Confidentiality of Alcohol and Drug Abuse Patient Records regulations: The Federal rules restrict any use of the information to criminally investigate or prosecute any alcohol or drug abuse patient.[facility] HospitalIn the event this information is protected by the Federal Confidentiality of Alcohol and Drug Abuse Patient Records regulations: The Federal rules restrict any use of the information to criminally investigate or prosecute any alcohol or drug abuse patient.[facility] HospitalIn the event this information is protected by the Federal Confidentiality of Alcohol and Drug Abuse Patient Records regulations: The Federal rules restrict any use of the information to criminally investigate or prosecute any alcohol or drug abuse patient.[facility] HospitalIn the event this information is protected by the Federal Confidentiality of Alcohol and Drug Abuse Patient Records regulations: The Federal rules restrict any use of the information to criminally investigate or prosecute any alcohol or drug abuse patient.[facility] HospitalIn the event this information is protected by the Federal Confidentiality of Alcohol and Drug Abuse Patient Records regulations: The Federal rules restrict any use of the information to criminally investigate or prosecute any alcohol or drug abuse patient.[facility] HospitalIn the event this information is protected by the Federal Confidentiality of Alcohol and Drug Abuse Patient Records regulations: The Federal rules restrict any use of the information to criminally investigate or prosecute any alcohol or drug abuse patient.[facility] HospitalIn the event this information is protected by the Federal Confidentiality of Alcohol and Drug Abuse Patient Records regulations: The Federal rules restrict any use of the information to criminally investigate or prosecute any alcohol or drug abuse patient.[facility] HospitalIn the event this information is protected by the Federal Confidentiality of Alcohol and Drug Abuse Patient Records regulations: The Federal rules restrict any use of the information to criminally investigate or prosecute any alcohol or drug abuse patient.[facility] HospitalIn the event this information is protected by the Federal Confidentiality of Alcohol and Drug Abuse Patient Records regulations: The Federal rules restrict any use of the information to criminally investigate or prosecute any alcohol or drug abuse patient.[facility] HospitalIn the event this information is protected by the Federal Confidentiality of Alcohol and Drug Abuse Patient Records regulations: The Federal rules restrict any use of the information to criminally investigate or prosecute any alcohol or drug abuse patient.[facility] HospitalIn the event this information is protected by the Federal Confidentiality of Alcohol and Drug Abuse Patient Records regulations: The Federal rules restrict any use of the information to criminally investigate or prosecute any alcohol or drug abuse patient.[facility] HospitalIn the event this information is protected by the Federal Confidentiality of Alcohol and Drug Abuse Patient Records regulations: The Federal rules restrict any use of the information to criminally investigate or prosecute any alcohol or drug abuse patient.[facility] HospitalIn the event this information is protected by the Federal Confidentiality of Alcohol and Drug Abuse Patient Records regulations: The Federal rules restrict any use of the information to criminally investigate or prosecute any alcohol or drug abuse patient.[facility] HospitalIn the event this information is protected by the Federal Confidentiality of Alcohol and Drug Abuse Patient Records regulations: The Federal rules restrict any use of the information to criminally investigate or prosecute any alcohol or drug abuse patient.[facility] HospitalIn the event this information is protected by the Federal Confidentiality of Alcohol and Drug Abuse Patient Records regulations: The Federal rules restrict any use of the information to criminally investigate or prosecute any alcohol or drug abuse patient.[facility] HospitalIn the event this information is protected by the Federal Confidentiality of Alcohol and Drug Abuse Patient Records regulations: The Federal rules restrict any use of the information to criminally investigate or prosecute any alcohol or drug abuse patient.[facility] HospitalIn the event this information is protected by the Federal Confidentiality of Alcohol and Drug Abuse Patient Records regulations: The Federal rules restrict any use of the information to criminally investigate or prosecute any alcohol or drug abuse patient.[facility] HospitalIn the event this information is protected by the Federal Confidentiality of Alcohol and Drug Abuse Patient Records regulations: The Federal rules restrict any use of the information to criminally investigate or prosecute any alcohol or drug abuse patient.[facility] HospitalIn the event this information is protected by the Federal Confidentiality of Alcohol and Drug Abuse Patient Records regulations: The Federal rules restrict any use of the information to criminally investigate or prosecute any alcohol or drug abuse patient.[facility] HospitalIn the event this information is protected by the Federal Confidentiality of Alcohol and Drug Abuse Patient Records regulations: The Federal rules restrict any use of the information to criminally investigate or prosecute any alcohol or drug abuse patient.[facility] HospitalIn the event this information is protected by the Federal Confidentiality of Alcohol and Drug Abuse Patient Records regulations: The Federal rules restrict any use of the information to criminally investigate or prosecute any alcohol or drug abuse patient.[facility] HospitalIn the event this information is protected by the Federal Confidentiality of Alcohol and Drug Abuse Patient Records regulations: The Federal rules restrict any use of the information to criminally investigate or prosecute any alcohol or drug abuse patient.[facility] HospitalIn the event this information is protected by the Federal Confidentiality of Alcohol and Drug Abuse Patient Records regulations: The Federal rules restrict any use of the information to criminally investigate or prosecute any alcohol or drug abuse patient.[facility] HospitalIn the event this information is protected by the Federal Confidentiality of Alcohol and Drug Abuse Patient Records regulations: The Federal rules restrict any use of the information to criminally investigate or prosecute any alcohol or drug abuse patient.[facility] HospitalIn the event this information is protected by the Federal Confidentiality of Alcohol and Drug Abuse Patient Records regulations: The Federal rules restrict any use of the information to criminally investigate or prosecute any alcohol or drug abuse patient.[facility] HospitalIn the event this information is protected by the Federal Confidentiality of Alcohol and Drug Abuse Patient Records regulations: The Federal rules restrict any use of the information to criminally investigate or prosecute any alcohol or drug abuse patient.[facility] HospitalIn the event this information is protected by the Federal Confidentiality of Alcohol and Drug Abuse Patient Records regulations: The Federal rules restrict any use of the information to criminally investigate or prosecute any alcohol or drug abuse patient.[facility] HospitalIn the event this information is protected by the Federal Confidentiality of Alcohol and Drug Abuse Patient Records regulations: The Federal rules restrict any use of the information to criminally investigate or prosecute any alcohol or drug abuse patient.[facility] HospitalIn the event this information is protected by the Federal Confidentiality of Alcohol and Drug Abuse Patient Records regulations: The Federal rules restrict any use of the information to criminally investigate or prosecute any alcohol or drug abuse patient.[facility] HospitalIn the event this information is protected by the Federal Confidentiality of Alcohol and Drug Abuse Patient Records regulations: The Federal rules restrict any use of the information to criminally investigate or prosecute any alcohol or drug abuse patient.[facility] HospitalIn the event this information is protected by the Federal Confidentiality of Alcohol and Drug Abuse Patient Records regulations: The Federal rules restrict any use of the information to criminally investigate or prosecute any alcohol or drug abuse patient.[facility] HospitalIn the event this information is protected by the Federal Confidentiality of Alcohol and Drug Abuse Patient Records regulations: The Federal rules restrict any use of the information to criminally investigate or prosecute any alcohol or drug abuse patient.[facility] HospitalIn the event this information is protected by the Federal Confidentiality of Alcohol and Drug Abuse Patient Records regulations: The Federal rules restrict any use of the information to criminally investigate or prosecute any alcohol or drug abuse patient.[facility] HospitalIn the event this information is protected by the Federal Confidentiality of Alcohol and Drug Abuse Patient Records regulations: The Federal rules restrict any use of the information to criminally investigate or prosecute any alcohol or drug abuse patient.[facility] HospitalIn the event this information is protected by the Federal Confidentiality of Alcohol and Drug Abuse Patient Records regulations: The Federal rules restrict any use of the information to criminally investigate or prosecute any alcohol or drug abuse patient.[facility] HospitalIn the event this information is protected by the Federal Confidentiality of Alcohol and Drug Abuse Patient Records regulations: The Federal rules restrict any use of the information to criminally investigate or prosecute any alcohol or drug abuse patient.[facility] HospitalIn the event this information is protected by the Federal Confidentiality of Alcohol and Drug Abuse Patient Records regulations: The Federal rules restrict any use of the information to criminally investigate or prosecute any alcohol or drug abuse patient.[facility] HospitalIn the event this information is protected by the Federal Confidentiality of Alcohol and Drug Abuse Patient Records regulations: The Federal rules restrict any use of the information to criminally investigate or prosecute any alcohol or drug abuse patient.[facility] HospitalIn the event this information is protected by the Federal Confidentiality of Alcohol and Drug Abuse Patient Records regulations: The Federal rules restrict any use of the information to criminally investigate or prosecute any alcohol or drug abuse patient.[facility] HospitalIn the event this information is protected by the Federal Confidentiality of Alcohol and Drug Abuse Patient Records regulations: The Federal rules restrict any use of the information to criminally investigate or prosecute any alcohol or drug abuse patient.[facility] HospitalIn the event this information is protected by the Federal Confidentiality of Alcohol and Drug Abuse Patient Records regulations: The Federal rules restrict any use of the information to criminally investigate or prosecute any alcohol or drug abuse patient.[facility] HospitalIn the event this information is protected by the Federal Confidentiality of Alcohol and Drug Abuse Patient Records regulations: The Federal rules restrict any use of the information to criminally investigate or prosecute any alcohol or drug abuse patient.[facility] HospitalIn the event this information is protected by the Federal Confidentiality of Alcohol and Drug Abuse Patient Records regulations: The Federal rules restrict any use of the information to criminally investigate or prosecute any alcohol or drug abuse patient.[facility] HospitalIn the event this information is protected by the Federal Confidentiality of Alcohol and Drug Abuse Patient Records regulations: The Federal rules restrict any use of the information to criminally investigate or prosecute any alcohol or drug abuse patient.[facility] HospitalIn the event this information is protected by the Federal Confidentiality of Alcohol and Drug Abuse Patient Records regulations: The Federal rules restrict any use of the information to criminally investigate or prosecute any alcohol or drug abuse patient.[facility] HospitalIn the event this information is protected by the Federal Confidentiality of Alcohol and Drug Abuse Patient Records regulations: The Federal rules restrict any use of the information to criminally investigate or prosecute any alcohol or drug abuse patient.[facility] HospitalIn the event this information is protected by the Federal Confidentiality of Alcohol and Drug Abuse Patient Records regulations: The Federal rules restrict any use of the information to criminally investigate or prosecute any alcohol or drug abuse patient.[facility] HospitalIn the event this information is protected by the Federal Confidentiality of Alcohol and Drug Abuse Patient Records regulations: The Federal rules restrict any use of the information to criminally investigate or prosecute any alcohol or drug abuse patient.[facility] HospitalIn the event this information is protected by the Federal Confidentiality of Alcohol and Drug Abuse Patient Records regulations: The Federal rules restrict any use of the information to criminally investigate or prosecute any alcohol or drug abuse patient.[facility] HospitalIn the event this information is protected by the Federal Confidentiality of Alcohol and Drug Abuse Patient Records regulations: The Federal rules restrict any use of the information to criminally investigate or prosecute any alcohol or drug abuse patient.[facility] HospitalIn the event this information is protected by the Federal Confidentiality of Alcohol and Drug Abuse Patient Records regulations: The Federal rules restrict any use of the information to criminally investigate or prosecute any alcohol or drug abuse patient.[facility] HospitalIn the event this information is protected by the Federal Confidentiality of Alcohol and Drug Abuse Patient Records regulations: The Federal rules restrict any use of the information to criminally investigate or prosecute any alcohol or drug abuse patient.[facility] HospitalIn the event this information is protected by the Federal Confidentiality of Alcohol and Drug Abuse Patient Records regulations: The Federal rules restrict any use of the information to criminally investigate or prosecute any alcohol or drug abuse patient.[facility] HospitalIn the event this information is protected by the Federal Confidentiality of Alcohol and Drug Abuse Patient Records regulations: The Federal rules restrict any use of the information to criminally investigate or prosecute any alcohol or drug abuse patient.[facility] HospitalIn the event this information is protected by the Federal Confidentiality of Alcohol and Drug Abuse Patient Records regulations: The Federal rules restrict any use of the information to criminally investigate or prosecute any alcohol or drug abuse patient.[facility] HospitalIn the event this information is protected by the Federal Confidentiality of Alcohol and Drug Abuse Patient Records regulations: The Federal rules restrict any use of the information to criminally investigate or prosecute any alcohol or drug abuse patient.[facility] HospitalIn the event this information is protected by the Federal Confidentiality of Alcohol and Drug Abuse Patient Records regulations: The Federal rules restrict any use of the information to criminally investigate or prosecute any alcohol or drug abuse patient.[facility] HospitalIn the event this information is protected by the Federal Confidentiality of Alcohol and Drug Abuse Patient Records regulations: The Federal rules restrict any use of the information to criminally investigate or prosecute any alcohol or drug abuse patient.[facility] HospitalIn the event this information is protected by the Federal Confidentiality of Alcohol and Drug Abuse Patient Records regulations: The Federal rules restrict any use of the information to criminally investigate or prosecute any alcohol or drug abuse patient.[facility] HospitalIn the event this information is protected by the Federal Confidentiality of Alcohol and Drug Abuse Patient Records regulations: The Federal rules restrict any use of the information to criminally investigate or prosecute any alcohol or drug abuse patient.[facility] HospitalIn the event this information is protected by the Federal Confidentiality of Alcohol and Drug Abuse Patient Records regulations: The Federal rules restrict any use of the information to criminally investigate or prosecute any alcohol or drug abuse patient.[facility] HospitalIn the event this information is protected by the Federal Confidentiality of Alcohol and Drug Abuse Patient Records regulations: The Federal rules restrict any use of the information to criminally investigate or prosecute any alcohol or drug abuse patient.[facility] HospitalIn the event this information is protected by the Federal Confidentiality of Alcohol and Drug Abuse Patient Records regulations: The Federal rules restrict any use of the information to criminally investigate or prosecute any alcohol or drug abuse patient.[facility] HospitalIn the event this information is protected by the Federal Confidentiality of Alcohol and Drug Abuse Patient Records regulations: The Federal rules restrict any use of the information to criminally investigate or prosecute any alcohol or drug abuse patient.[facility] HospitalIn the event this information is protected by the Federal Confidentiality of Alcohol and Drug Abuse Patient Records regulations: The Federal rules restrict any use of the information to criminally investigate or prosecute any alcohol or drug abuse patient.[facility] HospitalIn the event this information is protected by the Federal Confidentiality of Alcohol and Drug Abuse Patient Records regulations: The Federal rules restrict any use of the information to criminally investigate or prosecute any alcohol or drug abuse patient.[facility] HospitalIn the event this information is protected by the Federal Confidentiality of Alcohol and Drug Abuse Patient Records regulations: The Federal rules restrict any use of the information to criminally investigate or prosecute any alcohol or drug abuse patient.[facility] HospitalIn the event this information is protected by the Federal Confidentiality of Alcohol and Drug Abuse Patient Records regulations: The Federal rules restrict any use of the information to criminally investigate or prosecute any alcohol or drug abuse patient.[facility] HospitalIn the event this information is protected by the Federal Confidentiality of Alcohol and Drug Abuse Patient Records regulations: The Federal rules restrict any use of the information to criminally investigate or prosecute any alcohol or drug abuse patient.[facility] HospitalIn the event this information is protected by the Federal Confidentiality of Alcohol and Drug Abuse Patient Records regulations: The Federal rules restrict any use of the information to criminally investigate or prosecute any alcohol or drug abuse patient.[facility] HospitalIn the event this information is protected by the Federal Confidentiality of Alcohol and Drug Abuse Patient Records regulations: The Federal rules restrict any use of the information to criminally investigate or prosecute any alcohol or drug abuse patient.[facility] HospitalIn the event this information is protected by the Federal Confidentiality of Alcohol and Drug Abuse Patient Records regulations: The Federal rules restrict any use of the information to criminally investigate or prosecute any alcohol or drug abuse patient.[facility] HospitalIn the event this information is protected by the Federal Confidentiality of Alcohol and Drug Abuse Patient Records regulations: The Federal rules restrict any use of the information to criminally investigate or prosecute any alcohol or drug abuse patient.[facility] HospitalIn the event this information is protected by the Federal Confidentiality of Alcohol and Drug Abuse Patient Records regulations: The Federal rules restrict any use of the information to criminally investigate or prosecute any alcohol or drug abuse patient.[facility] HospitalIn the event this information is protected by the Federal Confidentiality of Alcohol and Drug Abuse Patient Records regulations: The Federal rules restrict any use of the information to criminally investigate or prosecute any alcohol or drug abuse patient.[facility] HospitalIn the event this information is protected by the Federal Confidentiality of Alcohol and Drug Abuse Patient Records regulations: The Federal rules restrict any use of the information to criminally investigate or prosecute any alcohol or drug abuse patient.[facility] HospitalIn the event this information is protected by the Federal Confidentiality of Alcohol and Drug Abuse Patient Records regulations: The Federal rules restrict any use of the information to criminally investigate or prosecute any alcohol or drug abuse patient.[facility] HospitalIn the event this information is protected by the Federal Confidentiality of Alcohol and Drug Abuse Patient Records regulations: The Federal rules restrict any use of the information to criminally investigate or prosecute any alcohol or drug abuse patient.[facility] HospitalIn the event this information is protected by the Federal Confidentiality of Alcohol and Drug Abuse Patient Records regulations: The Federal rules restrict any use of the information to criminally investigate or prosecute any alcohol or drug abuse patient.[facility] HospitalIn the event this information is protected by the Federal Confidentiality of Alcohol and Drug Abuse Patient Records regulations: The Federal rules restrict any use of the information to criminally investigate or prosecute any alcohol or drug abuse patient.[facility] HospitalIn the event this information is protected by the Federal Confidentiality of Alcohol and Drug Abuse Patient Records regulations: The Federal rules restrict any use of the information to criminally investigate or prosecute any alcohol or drug abuse patient.[facility] HospitalIn the event this information is protected by the Federal Confidentiality of Alcohol and Drug Abuse Patient Records regulations: The Federal rules restrict any use of the information to criminally investigate or prosecute any alcohol or drug abuse patient.[facility] HospitalIn the event this information is protected by the Federal Confidentiality of Alcohol and Drug Abuse Patient Records regulations: The Federal rules restrict any use of the information to criminally investigate or prosecute any alcohol or drug abuse patient.[facility] HospitalIn the event this information is protected by the Federal Confidentiality of Alcohol and Drug Abuse Patient Records regulations: The Federal rules restrict any use of the information to criminally investigate or prosecute any alcohol or drug abuse patient.[facility] HospitalIn the event this information is protected by the Federal Confidentiality of Alcohol and Drug Abuse Patient Records regulations: The Federal rules restrict any use of the information to criminally investigate or prosecute any alcohol or drug abuse patient.[facility] Reason for Visit (unrecogniz ed section and content) Reason Onset Date Comments Refill Request 10/22/2021 Reason Comments Patient Question Reason Comments Follow [...] OT Reason Comments Hospital F/U Follow up [facility] and Av enue discharge Reason Comments Results Reason Comments Established Patient Reason Comments [facility] - medication question Reason Comments Vulvar problem Reason Comments Same Day Appointment lump in anus area x 1 week txd with antibiotics Reason Comments Lump on anus Reason Comments Follow Up 4 month Reason Comments patient asking for 3 D mamm order fax to [facility] Reason Comments Refill Request Reason Comments New Patient Palpitations Specialty Diagnoses / Procedures Referred By Belgica t Referred To Contact Cardiology Diagnoses Palpitations Paroxysmal SVT (supraventricular tachycardia) Procedures CONSULT TO CARDIOLOGY OFFICE/OUTPATIENT NEW HIGH MDM 60-74 MINUTES Davon Wolfe APRN.PLATE SLITTER AND INSPECTOR [address] [place] [address] Referral ID Status Reason Start Date Expiration Date Visits Requested Visits Authorized [id number] Pending Review PCP Requested Referral 11/12/2022 11/12/2023 1 1 Reason Onset Date Comments Refill Request 06/14/2023 Reason Comments Spirometry Specialty Diagnoses / Procedures Referred By Contac t [facility]erred [facility] Diagnoses Severe persistent asthma without complication Procedures OXIMETRY WITH AMBULATION NONINVASIVE EAR/PULSE OXIMETRY MULTIPLE DETER Tierney Nunez PA-C [address] [place] [address] [place] [place] [phone] Referral ID Status Reason Start Date Expiration Date V isits Requested Visits Authorized [id number] Closed Auto-Generate d Referral 06/23/2023 07/17/2023 1 1 Specialty Diagnoses / Procedures Referred By Contac t Referred [facility] Diagnoses Severe persistent asthma without complication Procedures NITRIC OXIDE, EXHALED NITRIC OXIDE GAS DETERMINATION Tierney Nunez PA-C [address] [place] [address] Respiratory [place] [phone] Referral ID Status Reason Start Date Expiration Date V isits Requested Visits Authorized [id number] Closed Auto-Generate d Referral 06/23/2023 07/22/2024 1 1 Reason Comments Established Patient Reason Comments F/U 4 month Labs prior Reason Comments Pain All over pain. Reason Comments Results Reason Comments Recheck Asthma 3 month follow up Reason Onset Date Comments Refill Request 09/23/2023 Reason Comments Insurance Authorization glucose test str ips Reason Comments Orders Reason Comments Blood sugar question Reason Comments Blood Sugar Reading Reason Comments ED Follow-up Reason Comments concerened about right lower leg clot X 1 day Reason Comments Results US negative for DVT Reason Comments Appointment Reason Comments Diabetes having fluctuating b lood sugars and experiencing symptoms Reason Comments Patient Question Reason Comments Patient Update calling in BS Reason Comments Medication Question side effects from in sulin Reason Comments Type 1 Diabetes Specialty Diagnoses / Procedures Referred By Contac t Referred To Contact Endocrinology Diagnoses 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) Procedures CONSULT TO ENDOCRINOLOGY OFFICE/OUTPATIENT [facility] MDM 60 MINUTES Lydia Grande, CLINICAL LAW PROFESSOR.[employer] [address] [place] [address] Referral ID Status Reason Start Date Expiration Date V isits Requested Visits Authorized [id number] Closed PCP Requested Referral 11/08/2023 11/07/2024 1 1 Reason Comments FYI-No Action Needed Reason Onset Date Comments Patient Question 12/09/2023 Reason Comments Patient Update and question Reason Comments sore lump on side of right neck X 1 week Reason Comments Blood sugar readings Copy of recent BS r eadings attached to this encounter. Reason Comments Diabetes Specialty Diagnoses / Procedures [facility] Diagnoses Diabetes mellitus type 1, controlled, without complications (HCC) Procedures CONSULT TO DIABETES EDUCATION DSME/MNT MEDICAL NUTRITION ASSMT&IVNTJ INDIV EACH 15 NH MEDICAL NUTRITION ASSMT&IVNTJ INDIV EACH 15 [place] MEDICAL NUTRITION ASSMT&IVNTJ INDIV EACH 15 [place] MEDICAL NUTRITION ASSMT&IVNTJ INDIV EACH 15 NH Renetta Mcgee, CLINICAL LAW PROFESSOR.PLATE SLITTER AND INSPECTOR [address] [place] [address] Referral ID Status Reason Start Date Expiration Date V isits Requested Visits Authorized [id number] Closed PCP Requested Referral 12/07/2023 12/06/2024 1 1 Reason Comments Orders Lab Orders Reason Comments Diabetes mellitus type 1, controlled, wi thout complications Reason Comments Orders Reason Comments Established Patient Increased dyspnea Reason Comments Symbicort needs authorized Reason Comments F/U 4 month Labs prior Reason Onset Date Comments Refill Request 03/23/2024 Specialty Diagnoses / Procedures Referred By [facility] Referred To Contact [facility] Diagnoses Mild persistent asthma without complication Procedures NITRIC OXIDE, EXHALED NITRIC OXIDE GAS DETERMINATION Jeannine Perkins MD [address] [place] [address] Respiratory [place] [address] [place] [address] Referral ID Status Reason Start Date Expiration Date V isits Requested Visits Authorized [id number] Closed Auto-Generate d Referral 09/22/2023 10/21/2024 1 1 Reason Comments Established Patient 6 month follow up as thma Asthma Reason Comments Medical Nutrition Therapy Type 1 Diabete s Reason Comments Cough Cough, sneezing and right side of neck hurts x 2 days Reason Comments Recheck [facility] ER 05/05/24 shor tness of breath with chest discomfort was note arrhythmia Dental Problem questions a tooth ab scess. Reason Comments checking if lab work due Reason Comments 4 month follow up [facility] ER 06/08/24 foll ow up for UTI.Treated with Bactrim but feels not tolerating the Bactrim as it is causing her to be really warm and elevated blood sugar Reason Onset Date Comments Refill Request 06/19/2024 Reason Onset Date Comments Population Health Navigation Outreach 06/21/2024 AWV INITIATIVE Reason Comments elevated blood glucose Reason Comments Rx Refills Reason Onset Date Comments Refill Request 07/27/2024 Reason Comments Constipation Reason Onset Date Comments Population [facility] Navigation Outreach 08/17/2024 [employer] High Risk - Attempt 1 Reason Comments Clinical Update Reason Comments Blood sugar test strips PA Reason Comments ER F/U [facility] 09/20 abdominal pa in, constipation; [facility] 09/21 hyperglycemia; [facility] diarrhea Reason Comments 4 month f/up Reason Comments Patient Question Requesting a call back from nurse Returning Patient's Call Reason Comments High Blood Sugar left leg pain Reason Comments Patient Update Ongoing high blood s ugars Reason Comments type 1 diabetes Reason Onset Date Comments Postbed Stitcher- Other 11/07/2024 CDM chart review Reason Comments Patient Question Low heart rate Reason Onset Date Comments Refill Request 12/12/2024 Reason Comments Patient Update Returning Patient's Call Care Teams (unrecognized sec tion and content) Cocktail Lounge Manager Relationship Specialty Start Date End Date Octavio Reza MD [address] [place] [address] PCP - General Internal Medicine 08/24/10 Cocktail Lounge Manager Relationship Specialty Start Date End Date Octavio Reza MD [address] [place] [address] PCP - General Internal Medicine 08/24/10 Cocktail Lounge Manager Relationship Specialty Start Date End Date Octavio Reza MD [address] [place] [address] PCP - General Internal Medicine 08/24/10 Cocktail Lounge Manager Relationship Specialty Start Date End Date Octavio Reza MD [address] [place] [address] PCP - General Internal Medicine 08/24/10 Cocktail Lounge Manager Relationship Specialty Start Date End Date Octavio Reza MD [address] [place] [address], [place] [address] PCP - General Internal Medicine 08/24/10 Cocktail Lounge Manager Relationship Specialty Start Date End Date Octavio Reza MD [address] [place] [address], [place] [address] PCP - General Internal Medicine 08/24/10 Cocktail Lounge Manager Relationship Specialty Start Date End Date Octavio Reza MD [address] [place] [address], [place] [address] PCP - General Internal Medicine 08/24/10 Cocktail Lounge Manager Relationship Specialty Start Date End Date Octavio Reza MD [address] [place] [address], [place] [address] PCP - General Internal Medicine 08/24/10 Cocktail Lounge Manager Relationship Specialty Start Date End Date Octavio Reza MD [address] [place] [address], [place] [address] PCP - General Internal Medicine 08/24/10 Cocktail Lounge Manager Relationship Specialty Start Date End Date Octavio Reza MD [address] [place] [address], [place] [address] PCP - General Internal Medicine 08/24/10 Cocktail Lounge Manager Relationship Specialty Start Date End Date Octavio Reza MD [address] [place] [address], [place] [address] PCP - General Internal Medicine 08/24/10 Cocktail Lounge Manager Relationship Specialty Start Date End Date Octavio Reza MD [address] [place] [address], [place] [address] PCP - General Internal Medicine 08/24/10 Cocktail Lounge Manager Relationship Specialty Start Date End Date Octavio Reza MD [address] [facility] [place] [address] PCP - General Internal Medicine 08/24/10 Cocktail Lounge Manager Relationship Specialty Start Date End Date Octavio Reza MD [facility] [place] [address] PCP - General Internal Medicine 08/24/10 Cocktail Lounge Manager Relationship Specialty Start Date End Date Octavio Reza MD [facility] [place] [place] [address] PCP - General Internal Medicine 08/24/10 Cocktail Lounge Manager Relationship Specialty Start Date End Date Octavio Reza MD [address] [place] [address], [place] [address] PCP - General Internal Medicine 08/24/10 Cocktail Lounge Manager Relationship Specialty Start Date End Date Octavio Reza MD [address] [place] [address], [place] [address] PCP - General Internal Medicine 08/24/10 Cocktail Lounge Manager Relationship Specialty Start Date End Date Octavio Reza MD [address] [place] [address], [place] [address] PCP - General Internal Medicine 08/24/10 Cocktail Lounge Manager Relationship Specialty Start Date End Date Octavio Reza MD [address] [place] [address], [place] [address] PCP - General Internal Medicine 08/24/10 Cocktail Lounge Manager Relationship Specialty Start Date End Date Octavio Reza MD [address] [place] [address], [place] [address] PCP - General Internal Medicine 08/24/10 Team Status: Active Member Role Status Dates Dr. Octavio Reza MD Family Provider Active Dr. Octavio Reza MD Primary Care Provider Active Team Status: Inactive Member Role Status Dates Dr. Octavio Reza MD Primary Care Provider, Referr ing Provider Active Areli Estevez PA, PA Attending Provider Active Team Status: Active Member Role Status Dates Dr. Octavio Reza MD Primary Care Provider Active Dr. Vazquez Harvey DO Emergency Provider Active Dr. Tawanda Herring MD Attending Provider Active Team Status: Active Member Role Status Dates Dr. Octavio Reza MD Primary Care Provider Active Dr. Vazquez Harvey DO Emergency Provider Active Dr. Tawanda Herring MD Admit Provider, At tending Provider, Other Provider Active Team Status: Active Member Role Status Dates Dr. Octavio Reza MD Primary Care Provider Active Dr. Vazquez Harvey DO Emergency Provider Active Dr. Tawanda Herring MD Admit Provider, Other Provider A ctive Dr. Jer Escobedo , Attending Provider, Other Pro vider Active Team Status: Active Member Role Status Dates Dr. Octavio Reza MD Primary Care Provider Active Dr. Mark Castillo MD Emergency Provider Active Dr. Krystian Sandoval MD Admit Provider, Attending Provider, Other Provider Active Team Status: Active Member Role Status Dates Dr. Octavio Reza MD Primary Care Provider Active Dr. Mark Castillo MD Emergency Provider Active Dr. Krystian Sandoval MD Admit Provider, Other Provide r Active Dr. Mei Garcia MD Attending Provider, Other Provider Active Dr. Floresita Howe MD Other Provider Active Team Status: Active Member Role Status Dates Dr. Octavio Reza MD Primary Care Provider Active Dr. Jesus Kessler MD Emergency Provider Active Dr. Daisy Gan MD Admit Provider, Other Provider Active Dr. Tawanda Herring MD Attending Provider, Other Provid er Active Team Status: Active Member Role Status Dates Dr. Octavio Reza MD Primary Care Provider Active Dr. Jesus Kessler MD Emergency Provider Active Dr. Daisy Gan MD Admit Provider, Other Provider Active Dr. Zay Escalera DO Attending Provider, Other Provid er Active Dr. Tawanda Herring MD Other Provider Active Team Status: Inactive Member Role Status Dates Dr. Octavio Reza MD Primary Care Provider Active Dr. Vazquez Harvey DO Emergency Provider Active Dr. Tawanda Herring MD Admit Provider, Other Provider A ctive Dr. Jer Escobedo DO Attending Provider Active Team Status: Inactive Member Role Status Dates Dr. Octavio Reza MD Primary Care Provider Active Dr. Mark Castillo MD Emergency Provider Active Dr. Krystian Sandoval MD Admit Provider, Other Provide r Active Dr. Mei Garcia MD Attending Provider Active Dr. Floresita Howe MD Other Provider Active Team Status: Inactive Member Role Status Dates Dr. Octavio Reza MD Primary Care Provider Active Dr. Jesus Kessler MD Emergency Provider Active Dr. Daisy Gan MD Admit Provider, Other Provider Active Dr. Zay Escalera DO Attending Provider Active Dr. Tawanda Herring MD Other Provider Active Cocktail Lounge Manager Relationship Specialty Start Date End Date Octavio Reza MD [address] [place] [address] PCP - General Internal Medicine 08/24/10 Cocktail Lounge Manager Relationship Specialty Start Date End Date Octavio Reza MD [address] [place] [address] PCP - General Internal Medicine 08/24/10 Team Status: Active Member Role Status Dates Dr. Octavio Reza MD Primary Care Provider Active Dr. Jayden Alberto MD Attending Provider, Refe rring Provider Active Team Status: Inactive Member Role Status Dates Dr. Octavio Reza MD Primary Care Provider Active Dr. Zay Juan DO Emergency Provider Active Cocktail Lounge Manager Relationship Specialty Start Date End Date Octavio Reza MD [address] [place] [address] PCP - General Internal Medicine 08/24/10 Cocktail Lounge Manager Relationship Specialty Start Date End Date Octavio Reza MD [address] [place] [address] PCP - General Internal Medicine 08/24/10 Team Status: Inactive Member Role Status Dates Dr. Octavio Reza MD Primary Care Provider Active Dr. Zay Juan DO Attending Provider, Emergency P abby Active Team Status: Inactive Member Role Status Dates Dr. Octavio Reza MD Primary Care Provider Active Dr. Tierney Francis MD Emergency Provider Active Team Status: Active Member Role Status Dates Dr. Octavio Reza MD Primary Care Provider Active Dr. Lenin Michaels MD Attending Provider Active Team Status: Inactive Member Role Status Dates Dr. Octavio Reza MD Primary Care Provider Active Dr. Tierney Francis MD Attending Provider, Emergency Provider Active Team Status: Inactive Member Role Status Dates Dr. Octavio Reza MD Primary Care Provider Active Areli Estevez PA, PA Attending Provider, Referr ing Provider Active Cocktail Lounge Manager Relationship Specialty Start Date End Date Octavio Reza MD [address] [facility] [place] [address] PCP - General Internal Medicine 08/24/10 Cocktail Lounge Manager Relationship Specialty Start Date End Date Octavio Reza MD [address] [place] [address] PCP - General Internal Medicine 08/24/10 Cocktail Lounge Manager Relationship Specialty Start Date End Date Octavio Reza MD [address] [place] [address] PCP - General Internal Medicine 08/24/10 Team Status: Inactive Member Role Status Dates Dr. Octavio Reza MD Primary Care Pr ovider, Attending Provider, Referring Provider Active Cocktail Lounge Manager Relationship Specialty Start Date End Date Octavio Reza MD [address] [place] [address] PCP - General Internal Medicine 08/24/10 Cocktail Lounge Manager Relationship Specialty Start Date End Date Octavio Reza MD [address] [place] [address] PCP - General Internal Medicine 08/24/10 Cocktail Lounge Manager Relationship Specialty Start Date End Date Octavio Reza MD [address] [place] [address] PCP - General Internal Medicine 08/24/10 Cocktail Lounge Manager Relationship Specialty Start Date End Date Octavio Reza MD [address] [place] [address] PCP - General Internal Medicine 08/24/10 Cocktail Lounge Manager Relationship Specialty Start Date End Date Octavio Reza MD [address] [place] [address] PCP - General Internal Medicine 08/24/10 Cocktail Lounge Manager Relationship Specialty Start Date End Date Octavio Reza MD [address] [place] [address] PCP - General Internal Medicine 08/24/10 Cocktail Lounge Manager Relationship Specialty Start Date End Date Octavio Reza MD [address] [place] [address] PCP - General Internal Medicine 08/24/10 Team Status: Inactive Member Role Status Dates Dr. Octavio Reza MD Primary Care Provider Active Dr. Jesus Kessler MD Attending Provider, Emergency Provider Active Team Status: Inactive Member Role Status Dates Dr. Octavio Reza MD Primary Care Provider Active Dr. Benjamín Stanford DO Emergency Provider Active Team Status: Active Member Role Status Dates Dr. Octavio Reza MD Primary Care Provider Active Dr. Benjamín Stanford DO Attending Provider, Referring Provide r Active Team Status: Inactive Member Role Status Dates Dr. Octavio Reza MD Primary Care Provider Active Dr. Nik Nunez MD Emergency Provider Active Team Status: Inactive Member Role Status Dates Dr. Octavio Reza MD Primary Care Provider Active Dr. Benjamín Stanford DO Attending Provider, Emergency Provide r Active Team Status: Inactive Member Role Status Dates Dr. Octavio Reza MD Primary Care Provider Active Dr. Benjamín Stanford DO Attending Provider, Referring Provide r Active Cocktail Lounge Manager Relationship Specialty Start Date End Date Octavio Reza MD [address] [facility] [place] [place] [address] PCP - General Internal Medicine 08/24/10 Cocktail Lounge Manager Relationship Specialty Start Date End Date Octavio Reza MD [address] [facility] [place] [place] [address] PCP - General Internal Medicine 08/24/10 Cocktail Lounge Manager Relationship Specialty Start Date End Date Octavio Reza MD [address] [facility] [place], [place] [address] PCP - General Internal Medicine 08/24/10 Cocktail Lounge Manager Relationship Specialty Start Date End Date Octavio Reza MD [address] [facility] [place], [place] [address] PCP - General Internal Medicine 08/24/10 Team Status: Inactive Member Role Status Dates Dr. Octavio Reza MD Primary Care Provider, Referr ing Provider Active Jae Lee TOBACCO STEMMER, TOBACCO STEMMER-C Attending Provider Active Team Status: Active Member Role Status Dates Dr. Octavio Reza MD Primary Care Provider Active Dr. Eliza Cool MD Attending Provider Active Dr. Benjamín Stanford DO Referring Provider Active Team Status: Inactive Member Role Status Dates Dr. Octavio Reza MD Primary Care Provider Active Dr. Nik Nunez MD Attending Provider, Emergency Provider Active Team Status: Inactive Member Role Status Dates Dr. Octavio Reza MD Primary Care Provider Active Dr. Mark Castillo MD Emergency Provider Active Cocktail Lounge Manager Relationship Specialty Start Date End Date Octavio Reza MD [address] [facility] [place], [place] [address] PCP - General Internal Medicine 08/24/10 Team Status: Inactive Member Role Status Dates Dr. Octavio Reza MD Primary Care Provider Active Dr. Mark Castillo MD Attending Provider, Emergency Provi kaye Active Cocktail Lounge Manager Relationship Specialty Start Date End Date Octavio Reza MD [address] [facility] [place] [address] PCP - General Internal Medicine 08/24/10 Cocktail Lounge Manager Relationship Specialty Start Date End Date Octavio Reza MD [address] [facility] [place] [place] [address] PCP - General Internal Medicine 08/24/10 Team Status: Inactive Member Role Status Dates Dr. Octavio Reza MD Primary Care Provider Active Dr. Holland Sanches , DO Emergency Provider Active Cocktail Lounge Manager Relationship Specialty Start Date End Date Octavio Reza MD [address] [facility] [place] [place] [address] PCP - General Internal Medicine 08/24/10 Cocktail Lounge Manager Relationship Specialty Start Date End Date Octavio Reza MD [address] [facility] [place] [place] [address] PCP - General Internal Medicine 08/24/10 Cocktail Lounge Manager Relationship Specialty Start Date End Date Octavio Reza MD [address] [facility] [place] [place] [address] PCP - General Internal Medicine 08/24/10 Cocktail Lounge Manager Relationship Specialty Start Date End Date Octavio Reza MD [address] [facility] [place] [place] [address] PCP - General Internal Medicine 08/24/10 Team Status: Inactive Member Role Status Dates Dr. Octavio Reza MD Primary Care Provider Active Dr. Holland Sanches DO Attending Provider, Leo mora Active Cocktail Lounge Manager Relationship Specialty Start Date End Date Octavio Reza MD [address] [facility] [place] [address] PCP - General Internal Medicine 08/24/10 Cocktail Lounge Manager Relationship Specialty Start Date End Date Octavio Reza MD [address] [facility] [place] [place] [address] PCP - General Internal Medicine 08/24/10 [facility] [address] [facility] [place] [address] Pharmacist Pharmacy 01/12/24 Cocktail Lounge Manager Relationship Specialty Start Date End Date Octavio Reza MD [address] [facility] [place] [address] PCP - General Internal Medicine 08/24/10 [facility] [address] [facility] [place] [address] Pharmacist Pharmacy 01/12/24 Cocktail Lounge Manager Relationship Specialty Start Date End Date Octavio Reza MD [address] [facility] [place] [address] PCP - General Internal Medicine 08/24/10 [facility] [address] [facility] [place] [address] Pharmacist Pharmacy 01/12/24 Cocktail Lounge Manager Relationship Specialty Start Date End Date Octavio Reza MD [address] [facility] [place] [place] [address] PCP - General Internal Medicine 08/24/10 Charis Lucas, [facility] [address] [facility] [place] [address] Pharmacist Pharmacy 01/12/24 Cocktail Lounge Manager Relationship Specialty Start Date End Date Octavio Reza MD [address] [facility] [place] [address] PCP - General Internal Medicine 08/24/10 Charis Lucas, [facility] [address] [facility] [place] [address] Pharmacist Pharmacy 01/12/24 Cocktail Lounge Manager Relationship Specialty Start Date End Date Octavio Reza MD [address] [facility] [place] [address] PCP - General Internal Medicine 08/24/10 [facility] [address] [facility] [place] [address] Pharmacist Pharmacy 01/12/24 Cocktail Lounge Manager Relationship Specialty Start Date End Date Octavio Reza MD [address] [facility] [place] [address] PCP - General Internal Medicine 08/24/10 Charis Lucas, [facility] [address] [facility] [place] [address] Pharmacist Pharmacy 01/12/24 Cocktail Lounge Manager Relationship Specialty Start Date End Date Octavio Reza MD [address] [facility] [place] [address] PCP - General Internal Medicine 08/24/10 Charis Lucas, [facility] [address] [facility] [place] [address] Pharmacist Pharmacy 01/12/24 Cocktail Lounge Manager Relationship Specialty Start Date End Date Octavio Reza MD [address] [facility] [place] [address] PCP - General Internal Medicine 08/24/10 [facility] [address] [facility] [place] [address] Pharmacist Pharmacy 01/12/24 Cocktail Lounge Manager Relationship Specialty Start Date End Date Octavio Reza MD [address] [facility] [place] [address] PCP - General Internal Medicine 08/24/10 [facility] [address] [facility] [place] [address] Pharmacist Pharmacy 01/12/24 Cocktail Lounge Manager Relationship Specialty Start Date End Date Octavio Reza MD [address] [facility] [place] [address] PCP - General Internal Medicine 08/24/10 [facility] [address] [facility] [place] [address] Pharmacist Pharmacy 01/12/24 Cocktail Lounge Manager Relationship Specialty Start Date End Date Octavio Reza MD [address] [facility] [place] [address] PCP - General Internal Medicine 08/24/10 [facility] [address] [facility] [place] [address] Pharmacist Pharmacy 01/12/24 Cocktail Lounge Manager Relationship Specialty Start Date End Date Octavio Reza MD [address] [facility] [place] [place] [address] PCP - General Internal Medicine 08/24/10 [facility] [address] [facility] [place] [address] Pharmacist Pharmacy 01/12/24 Cocktail Lounge Manager Relationship Specialty Start Date End Date Octavio Reza MD [address] [facility] [place] [address] PCP - General Internal Medicine 08/24/10 [facility] [address] [facility] [place] [address] Pharmacist Pharmacy 01/12/24 Federica Alonzo RN [address] [place], [place] [id number] Postbed Stitcher 04/04/24 Cocktail Lounge Manager Relationship Specialty Start Date End Date Octavio Reza MD [address] [facility] [place] [address] PCP - General Internal Medicine 08/24/10 [facility] [address] [facility] [place] [address] Pharmacist Pharmacy 01/12/24 Federica Alonzo RN [address] [place] [address] Postbed Stitcher 04/04/24 Cocktail Lounge Manager Relationship Specialty Start Date End Date Octavio Reza MD [address] [facility] [place] [address] PCP - General Internal Medicine 08/24/10 [facility] [address] [place] [address] Pharmacist Pharmacy 01/12/24 Federica Alonzo RN [address] [place], [place] [phone] Postbed Stitcher 04/04/24 Cocktail Lounge Manager Relationship Specialty Start Date End Date Octavio Reza MD [address] [place] [address] PCP - General Internal Medicine 08/24/10 Cocktail Lounge Manager Relationship Specialty Start Date End Date Octavio Reza MD [address] [place] [address] PCP - General Internal Medicine 08/24/10 [facility] [address] [place] [address] Pharmacist Pharmacy 01/12/24 Federica Alonzo RN [address] [place] [address] Postbed Stitcher 04/04/24 Cocktail Lounge Manager Relationship Specialty Start Date End Date Octavio Reza MD [address] [place] [address] PCP - General Internal Medicine 08/24/10 [facility] [address] [place] [address] Pharmacist Pharmacy 01/12/24 Federica Alonzo RN [address] [place] [address] Postbed Stitcher 04/04/24 Cocktail Lounge Manager Relationship Specialty Start Date End Date Octavio Reza MD [address] [place] [address] PCP - General Internal Medicine 08/24/10 [facility], RPh [address] [facility] [place] [address] Pharmacist Pharmacy 01/12/24 Federica Alonzo RN [address] [place], [place] [id number] Postbed Stitcher 04/04/24 Cocktail Lounge Manager Relationship Specialty Start Date End Date Octavio Reza MD [address] [facility] [place] [address] PCP - General Internal Medicine 08/24/10 [facility]aneJaniCharis, RPh [address] [facility] [place] [address] Pharmacist Pharmacy 01/12/24 Federica Alonzo RN [address] [place], [place] [phone] Postbed Stitcher 04/04/24 Cocktail Lounge Manager Relationship Specialty Start Date End Date Octavio Reza MD [address] [facility] [place] [address] PCP - General Internal Medicine 08/24/10 [facility] [address] [facility] [place] [address] Pharmacist Pharmacy 01/12/24 Federica Alonzo RN [address] [place], [place] [phone] Postbed Stitcher 04/04/24 Renetta Mcgee APRN.PLATE SLITTER AND INSPECTOR [address] [facility] [place] [address] Endocrinology 05/25/24 Cocktail Lounge Manager Relationship Specialty Start Date End Date Octavio Reza MD [address] [facility] [place] [place] [address] PCP - General Internal Medicine 08/24/10 [facility] [address] [place] [address] Pharmacist Pharmacy 01/12/24 Federica Alonzo RN [address] [place] [address] Postbed Stitcher 04/04/24 Renetta Mcgee CLINICAL LAW PROFESSOR.PLATE SLITTER AND INSPECTOR [address] [place] [place] [address] Endocrinology 05/25/24 Cocktail Lounge Manager Relationship Specialty Start Date End Date Octavio Reza MD [address] [place] [address] PCP - General Internal Medicine 08/24/10 [facility] [address] [place] [address] Pharmacist Pharmacy 01/12/24 Renetta Mcgee CLINICAL LAW PROFESSOR.PLATE SLITTER AND INSPECTOR [address] [place] [address] Endocrinology 05/25/24 Cocktail Lounge Manager Relationship Specialty Start Date End Date Octavio Reza MD [address] [place] [address] PCP - General Internal Medicine 08/24/10 [facility] [address] [place] [address] Pharmacist Pharmacy 01/12/24 Renetta Mcgee, CLINICAL LAW PROFESSOR.PLATE SLITTER AND INSPECTOR [address] [place] [address] Endocrinology 05/25/24 Cocktail Lounge Manager Relationship Specialty Start Date End Date Octavio Reza MD [address] [facility] [place] [address] PCP - General Internal Medicine 08/24/10 [facility] [address] [place] [address] Pharmacist Pharmacy 01/12/24 Renetta Mcgee CLINICAL LAW PROFESSOR.PLATE SLITTER AND INSPECTOR [address] [place] [address] Endocrinology 05/25/24 Cocktail Lounge Manager Relationship Specialty Start Date End Date Octavio Reza MD [address] [facility] [place] [address] PCP - General Internal Medicine 08/24/10 [facility] [address] [place] [address] Pharmacist Pharmacy 01/12/24 Renetta Mcgee, CLINICAL LAW PROFESSOR.PLATE SLITTER AND INSPECTOR [address] [place] [address] Endocrinology 05/25/24 Cocktail Lounge Manager Relationship Specialty Start Date End Date Octavio Reza MD [address] [facility] [place] [address] PCP - General Internal Medicine 08/24/10 [facility] [address] [facility] [place] [address] Pharmacist Pharmacy 01/12/24 Federica Alonzo RN [address] [place] [phone] Postbed Stitcher 04/04/24 Renetta Mcgee CLINICAL LAW PROFESSOR.PLATE SLITTER AND INSPECTOR [address] [place] [address] Endocrinology 05/25/24 Lydia Grande, CLINICAL LAW PROFESSOR.INSIDE HORTICULTURAL SPECIALTY GROWER [address] [place] [address] Pickling Machine Operator Internal Medicine 06/25/24 Davon Wolfe CLINICAL LAW PROFESSOR.PLATE SLITTER AND INSPECTOR [address] [facility] [place] [address] Pickling Machine Operator Internal Medicine 06/25/24 Cocktail Lounge Manager Relationship Specialty Start Date End Date Octavio Reza MD [address] [facility] [place] [address] PCP - General Internal Medicine 08/24/10 Charis Lucas [facility] [address] [place] [address] Pharmacist Pharmacy 01/12/24 Renetta Mcgee APRN.PLATE SLITTER AND INSPECTOR [address] [place] [address] Endocrinology 05/25/24 Lydia Grande, CLINICAL LAW PROFESSOR.INSIDE HORTICULTURAL SPECIALTY GROWER [address] [facility] [place] [address] Pickling Machine Operator Internal Medicine 06/25/24 Davon Wolfe CLINICAL LAW PROFESSOR.PLATE SLITTER AND INSPECTOR [address] [facility] [place] [address] Pickling Machine Operator Internal Medicine 06/25/24 Cocktail Lounge Manager Relationship Specialty Start Date End Date Octavio Reza MD [address] [facility] [place] [address] PCP - General Internal Medicine 08/24/10 [facility] [address] [place] [address] Pharmacist Pharmacy 01/12/24 Renetta Mcgee APRN.PLATE SLITTER AND INSPECTOR [address] [facility] [place] [place] [address] Endocrinology 05/25/24 Lydia Grande, CLINICAL LAW PROFESSOR.INSIDE HORTICULTURAL SPECIALTY GROWER [address] [facility] [place] [address] Pickling Machine Operator Internal Medicine 06/25/24 Davon Wolfe APRN.PLATE SLITTER AND INSPECTOR 17[address] [facility] [place] [address] Pickling Machine Operator Internal Medicine 06/25/24 Cocktail Lounge Manager Relationship Specialty Start Date End Date Octavio Reza MD [address] [facility] [place] [address] PCP - General Internal Medicine 08/24/10 [facility] [address] [place] [address] Pharmacist Pharmacy 01/12/24 Renetta Mcgee CLINICAL LAW PROFESSOR.PLATE SLITTER AND INSPECTOR [address] [place] [address] Endocrinology 05/25/24 Lydia Grande CLINICAL LAW PROFESSOR.INSIDE HORTICULTURAL SPECIALTY GROWER [address] [facility] [place] [address] Pickling Machine Operator Internal Medicine 06/25/24 Davon Wolfe CLINICAL LAW PROFESSOR.PLATE SLITTER AND INSPECTOR [address] [facility] [place] [address] Pickling Machine Operator Internal Medicine 06/25/24 Cocktail Lounge Manager Relationship Specialty Start Date End Date Octavio Reza MD [address] [facility] [place] [address] PCP - General Internal Medicine 08/24/10 [facility] InsaneJaniCharis, RPh [address] [facility] [place] [address] Pharmacist Pharmacy 01/12/24 Renetta Mcgee, CLINICAL LAW PROFESSOR.PLATE SLITTER AND INSPECTOR [address] [place] [address] Endocrinology 05/25/24 Lydia Grande, CLINICAL LAW PROFESSOR.INSIDE HORTICULTURAL SPECIALTY GROWER [address] [place] [address] Pickling Machine Operator Internal Medicine 06/25/24 Davon Wolfe, CLINICAL LAW PROFESSOR.PLATE SLITTER AND INSPECTOR [address] [facility] [place] [address] Pickling Machine Operator Internal Medicine 06/25/24 Cocktail Lounge Manager Relationship Specialty Start Date End Date Octavio Reza MD [address] [place] [address] PCP - General Internal Medicine 08/24/10 [facility]aneJaniCharis, RPh [address] [place] [address] Pharmacist Pharmacy 01/12/24 Renetta Mcgee, CLINICAL LAW PROFESSOR.PLATE SLITTER AND INSPECTOR [address] [place] [address] Endocrinology 05/25/24 Lydia Grande, CLINICAL LAW PROFESSOR.INSIDE HORTICULTURAL SPECIALTY GROWER [address] [facility] [place] [address] Pickling Machine Operator Internal Medicine 06/25/24 Davon Wolfe CLINICAL LAW PROFESSOR.PLATE SLITTER AND INSPECTOR [address] [place] [address] [facility] Internal Medicine 06/25/24 Cocktail Lounge Manager Relationship Specialty Start Date End Date Octavio Reza MD [address] [facility] [place] [address] PCP - General Internal Medicine 08/24/10 [facility] [address] [facility] [place] [address] Pharmacist Pharmacy 01/12/24 Renetta Mcgee CLINICAL LAW PROFESSOR.PLATE SLITTER AND INSPECTOR [address] [place] [place] [address] Endocrinology 05/25/24 Lydia Grande CLINICAL LAW PROFESSOR.INSIDE HORTICULTURAL SPECIALTY GROWER [address] [place] [address] Pickling Machine Operator Internal Medicine 06/25/24 Davon Wolfe CLINICAL LAW PROFESSOR.PLATE SLITTER AND INSPECTOR [address] [place] [address] Pickling Machine Operator Internal Medicine 06/25/24 Cocktail Lounge Manager Relationship Specialty Start Date End Date Octavio Reza MD [address] [facility] [place] [address] PCP - General Internal Medicine 08/24/10 Charis Lucas, [facility] [address] [facility] [place] [address] Pharmacist Pharmacy 01/12/24 Renetta Mcgee CLINICAL LAW PROFESSOR.PLATE SLITTER AND INSPECTOR [address] [place] [address] Endocrinology 05/25/24 Lydia Grande, CLINICAL LAW PROFESSOR.INSIDE HORTICULTURAL SPECIALTY GROWER [address] [place] [address] Pickling Machine Operator Internal Medicine 06/25/24 Davon Wolfe CLINICAL LAW PROFESSOR.PLATE SLITTER AND INSPECTOR [address] [facility] [place] [address] Pickling Machine Operator Internal Medicine 06/25/24 Cocktail Lounge Manager Relationship Specialty Start Date End Date Octavio Reza MD [address] [facility] [place] [address] PCP - General Internal Medicine 08/24/10 Charis Lucas [facility] [address] [facility] [place] [address] Pharmacist Pharmacy 01/12/24 Renetta Mcgee, CLINICAL LAW PROFESSOR.PLATE SLITTER AND INSPECTOR [address] [place] [address] Endocrinology 05/25/24 Lydia Grande, CLINICAL LAW PROFESSOR.INSIDE HORTICULTURAL SPECIALTY GROWER [address] [facility] [place] [address] Pickling Machine Operator Internal Medicine 06/25/24 Davon Wolfe CLINICAL LAW PROFESSOR.PLATE SLITTER AND INSPECTOR [address] [facility] [place] [address] Pickling Machine Operator Internal Medicine 06/25/24 Cocktail Lounge Manager Relationship Specialty Start Date End Date Octavio Reza MD [address] [facility] [place] [address] PCP - General Internal Medicine 08/24/10 Charis Lucas [facility] [address] [facility] [place] [address] Pharmacist Pharmacy 01/12/24 Renetta Mcgee APRN.PLATE SLITTER AND INSPECTOR [address] [place] [address] Endocrinology 05/25/24 Lydia Grande, CLINICAL LAW PROFESSOR.INSIDE HORTICULTURAL SPECIALTY GROWER [address] [facility] [place] [address] Pickling Machine Operator Internal Medicine 06/25/24 Davon Wolfe CLINICAL LAW PROFESSOR.PLATE SLITTER AND INSPECTOR [address] [facility] [place] [address] Pickling Machine Operator Internal Medicine 06/25/24 Cocktail Lounge Manager Relationship Specialty Start Date End Date Octavio Reza MD [address] [facility] [place] [address] PCP - General Internal Medicine 08/24/10 [facility] [address] [facility] [place] [address] Pharmacist Pharmacy 01/12/24 Renetta Mcgee CLINICAL LAW PROFESSOR.PLATE SLITTER AND INSPECTOR [address] [place] [address] Endocrinology 05/25/24 Lydia Grande, CLINICAL LAW PROFESSOR.INSIDE HORTICULTURAL SPECIALTY GROWER [address] [facility] [place] [address] Pickling Machine Operator Internal Medicine 06/25/24 Davon Wolfe CLINICAL LAW PROFESSOR.PLATE SLITTER AND INSPECTOR [address] [facility] [place] [address] Pickling Machine Operator Internal Medicine 06/25/24 Cocktail Lounge Manager Relationship Specialty Start Date End Date Octavio Reza MD [address] [place] [address] PCP - General Internal Medicine 08/24/10 [facility] [address] [place] [address] Pharmacist Pharmacy 01/12/24 Renetta Mcgee CLINICAL LAW PROFESSOR.PLATE SLITTER AND INSPECTOR [address] [place] [address] Endocrinology 05/25/24 Lydia Grande APRN.INSIDE HORTICULTURAL SPECIALTY GROWER [address] [place] [address] Pickling Machine Operator Internal Medicine 06/25/24 Davon Wolfe CLINICAL LAW PROFESSOR.PLATE SLITTER AND INSPECTOR [address] [place] [address] Pickling Machine Operator Internal Medicine 06/25/24 Cocktail Lounge Manager Relationship Specialty Start Date End Date Octavio Reza MD [address] [place] [address] PCP - General Internal Medicine 08/24/10 [facility] [address] [place] [address] Pharmacist Pharmacy 01/12/24 Renetta Mcgee CLINICAL LAW PROFESSOR.PLATE SLITTER AND INSPECTOR [address] [place] [address] Endocrinology 05/25/24 Lydia Grande CLINICAL LAW PROFESSOR.INSIDE HORTICULTURAL SPECIALTY GROWER [address] [place] [address] Pickling Machine Operator Internal Medicine 06/25/24 Davon Wolfe APRN.PLATE SLITTER AND INSPECTOR [address] [place] [address] Pickling Machine Operator Internal Medicine 06/25/24 Cocktail Lounge Manager Relationship Specialty Start Date End Date Octavio Reza MD [address] [place] [address] PCP - General Internal Medicine 08/24/10 [facility] [address] [place] [address] Pharmacist Pharmacy 01/12/24 Renetta Mcgee CLINICAL LAW PROFESSOR.PLATE SLITTER AND INSPECTOR [address] [place] [address] Endocrinology 05/25/24 Lydia Grande CLINICAL LAW PROFESSOR.INSIDE HORTICULTURAL SPECIALTY GROWER [address] [place] [address] Pickling Machine Operator Internal Medicine 06/25/24 Davon Wolfe CLINICAL LAW PROFESSOR.PLATE SLITTER AND INSPECTOR [address] [place] [address] Pickling Machine Operator Internal Medicine 06/25/24 Cocktail Lounge Manager Relationship Specialty Start Date End Date Octavio Reza MD [address] [place] [address] PCP - General Internal Medicine 08/24/10 [facility] [address] [place] [address] Pharmacist Pharmacy 01/12/24 Renetta Mcgee CLINICAL LAW PROFESSOR.PLATE SLITTER AND INSPECTOR [address] [place] [address] Endocrinology 05/25/24 Lydia Grande, CLINICAL LAW PROFESSOR.INSIDE HORTICULTURAL SPECIALTY GROWER [address] [place] [address] Pickling Machine Operator Internal Medicine 06/25/24 Davon Wolfe, CLINICAL LAW PROFESSOR.PLATE SLITTER AND INSPECTOR [address] [place] [address] Pickling Machine Operator Internal Medicine 06/25/24 Cocktail Lounge Manager Relationship Specialty Start Date End Date Octavio Reza MD [address] [place] [address] PCP - General Internal Medicine 08/24/10 [facility] [address] [place] [address] Pharmacist Pharmacy 01/12/24 Renetta Mcgee, CLINICAL LAW PROFESSOR.PLATE SLITTER AND INSPECTOR [address] [place] [address] Endocrinology 05/25/24 Lydia Grande, CLINICAL LAW PROFESSOR.INSIDE HORTICULTURAL SPECIALTY GROWER [address] [place] [address] Pickling Machine Operator Internal Medicine 06/25/24 Davon Wolfe CLINICAL LAW PROFESSOR.PLATE SLITTER AND INSPECTOR [address] [place] [address] Pickling Machine Operator Internal Medicine 06/25/24 Cocktail Lounge Manager Relationship Specialty Start Date End Date Octavio Reza MD [address] [place] [address] PCP - General Internal Medicine 08/24/10 [facility] [address] [place] [address] Pharmacist Pharmacy 01/12/24 Renetta Mcgee, CLINICAL LAW PROFESSOR.PLATE SLITTER AND INSPECTOR [address] [place], [place] [address]241 Endocrinology 05/25/24 Lydia Grande, CLINICAL LAW PROFESSOR.INSIDE HORTICULTURAL SPECIALTY GROWER [address] [place], [place] [address] Pickling Machine Operator Internal Medicine 06/25/24 Davon Wolfe, CLINICAL LAW PROFESSOR.PLATE SLITTER AND INSPECTOR [address] [place], [place] 201441 Pickling Machine Operator Internal Medicine 06/25/24 Team Status: Active Member Role Status Dates Dr. Octavio Reza MD Primary Care Provider Active Team Status: Inactive Member Role Status Dates Dr. Octavio Reza MD Primary Care Provider Active Start: May 25, 2024 End: May 25, 2024 Dr. Reyna Monzon DO Attending Provider Active Start: May 25, 2024 End: May 25, 2024 Dr. Reyna Monzon DO Emergency Provider Active Start: May 25, 2024 End: May 25, 2024 Team Status: Inactive Member Role Status Dates Dr. Octavio Reza MD Primary Care Provider Active Start: May 27, 2024 End: May 27, 2024 Dr. Lars Dahl DO Attending Provider Active Start: May 27, 2024 End: May 27, 2024 Dr. Lars Dahl DO Referring Provider Active Start: May 27, 2024 End: May 27, 2024 Dr. Lars Dahl DO Emergency Provider Active Start: May 27, 2024 End: May 27, 2024 Team Status: Inactive Member Role Status Dates Dr. Octavio Reza MD Primary Care Provider Active Start: June 07, 2024 End: June 07, 2024 Areli LOWRY, PA Attending Provider Active Start: June 07, 2024 End: June 07, 2024 Areli LOWRY, PA Referring Provider Active Start: June 07, 2024 End: June 07, 2024 Team Status: Active Member Role Status Dates Dr. Octavio Reza MD Primary Care Provider Active Start: June 07, 2024 Dr. Miguel Angel Bosch MD Attending Provider Active Start: June 07, 2024 Areli LOWRY PA Referring Provider Active Start: June 07, 2024 Team Status: Active Member Role Status Dates Dr. Octavio Reza MD Primary Care Provider Active Start: June 07, 2024 Areli LOWRY PA Referring Provider Active Start: June 07, 2024 Areli LOWRY, PA Other Provider Active Start: June 07, 2024 Dr. Ray Maradiaga MD Attending Provider Active Start: June 07, 2024 Team Status: Inactive Member Role Status Dates Dr. Octavio Reza MD Primary Care Provider Active Start: June 08, 2024 End: June 08, 2024 Dr. Reyna Monzon DO Attending Provider Active Start: June 08, 2024 End: June 08, 2024 Dr. Reyna Monzon DO Emergency Provider Active Start: June 08, 2024 End: June 08, 2024 Team Status: Inactive Member Role Status Dates Dr. Octavio Reza MD Primary Care Provider Active Start: June 13, 2024 End: June 13, 2024 Dr. Octavio Reza MD Referring Provider Active Start: June 13, 2024 End: June 13, 2024 Dr. Miguel Angel Bosch MD Attending Provider Active Start: June 13, 2024 End: June 13, 2024 Team Status: Inactive Member Role Status Dates Dr. Octavio Reza MD Primary Care Provider Active Start: July 02, 2024 End: July 03, 2024 Dr. Eduardo Paz DO Attending Provider Activ e Start: July 02, 2024 End: July 03, 2024 Dr. Eduardo Paz DO Emergency Provider Activ e Start: July 02, 2024 End: July 03, 2024 Team Status: Inactive Member Role Status Dates Dr. Octavio Reza MD Primary Care Provider Active Start: July 28, 2024 End: July 28, 2024 Dr. Lars Dahl DO Attending Provider Active Start: July 28, 2024 End: July 28, 2024 Dr. Lars Dahl DO Emergency Provider Active Start: July 28, 2024 End: July 28, 2024 Team Status: Inactive Member Role Status Dates Dr. Octavio Reza MD Primary Care Provider Active Start: September 20, 2024 End: September 20, 2024 Dr. Lars Dahl DO Emergency Provider Active Start: September 20, 2024 End: September 20, 2024 Team Status: Inactive Member Role Status Dates Dr. Octavio Reza MD Primary Care Provider Active Start: September 21, 2024 End: September 21, 2024 Dr. Holland Sanches DO Emergency Provider Active Start: September 21, 2024 End: September 21, 2024 Team Status: Inactive Member Role Status Dates Dr. Octavio Reza MD Primary Care Provider Active Start: September 23, 2024 End: September 23, 2024 Dr. Abdulaziz Stratton MD Emergency Provider Active S tart: September 23, 2024 End: September 23, 2024 Cocktail Lounge Manager Relationship Specialty Start Date End Date Octavio Reza MD [address] [facility] [place] [address] PCP - General Internal Medicine 08/24/10 Charis Lucas RPh [address] [facility] [place] [address] Pharmacist Pharmacy 01/12/24 Renetta Mcgee, CLINICAL LAW PROFESSOR.PLATE SLITTER AND INSPECTOR [address] [facility] [address] Endocrinology 05/25/24 Lydia Grande, CLINICAL LAW PROFESSOR.INSIDE H[employer]ICULTURAL SPECIALTY GROWER [address] [facility] [place] [address] Pickling Machine Operator Internal Medicine 06/25/24 Davon Wolfe, CLINICAL LAW PROFESSOR.PLATE SLITTER AND INSPECTOR [address] [facility] [place] [address] Pickling Machine Operator Internal Medicine 10/09/24 Team Status: Inactive Member Role Status Dates Dr. Octavio Reza MD Primary Care Provider Active Start: September 20, 2024 End: September 20, 2024 Dr. Lars Dahl DO Attending Provider Active Start: September 20, 2024 End: September 20, 2024 Dr. Lars Dahl DO Emergency Provider Active Start: September 20, 2024 End: September 20, 2024 Team Status: Inactive Member Role Status Dates Dr. Octavio Reza MD Primary Care Provider Active Start: September 21, 2024 End: September 21, 2024 Dr. Holland Sanches DO Attending Provider Active Start: September 21, 2024 End: September 21, 2024 Dr. Holland Sanches DO Emergency Provider Active Start: September 21, 2024 End: September 21, 2024 Team Status: Inactive Member Role Status Dates Dr. Octavio Reza MD Primary Care Provider Active Start: September 23, 2024 End: September 23, 2024 Dr. Abdulaziz Stratton MD Attending Provider Active S tart: September 23, 2024 End: September 23, 2024 Dr. Abdulaziz Stratton MD Emergency Provider Active S tart: September 23, 2024 End: September 23, 2024 Team Status: Inactive Member Role Status Dates Dr. Octavio Reza MD Primary Care Provider Active Start: October 19, 2024 End: October 19, 2024 Dr. Holland Sanches DO Emergency Provider Active Start: October 19, 2024 End: October 19, 2024 Cocktail Lounge Manager Relationship Specialty Start Date End Date Octavio Reza MD [address] [place], [place] [id number] PCP - General Internal Medicine 08/24/10 Charis Luacs [facility] [address] [place], [place] [id number] Pharmacist Pharmacy 01/12/24 Renetta Mcgee APRN.PLATE SLITTER AND INSPECTOR [address] [place], [place] [id number] Endocrinology 05/25/24 Lydia Grande APRN.INSIDE H[employer]ICULTURAL SPECIALTY [employer]OWER [address] [facility] [place] [address] Pickling Machine Operator Internal Medicine 06/25/24 Davon Wolfe, CLINICAL LAW PROFESSOR.PLATE SLITTER AND INSPECTOR [address] [facility] [place] [address] [facility] Internal Medicine 10/09/24 Cocktail Lounge Manager Relationship Specialty Start Date End Date Octavio Reza MD [address] [facility] [place] [address] PCP - General Internal Medicine 08/24/10 Charis Lucas RPh [address] [facility] [place] [address] Pharmacist Pharmacy 01/12/24 Renetta Mcgee, CLINICAL LAW PROFESSOR.PLATE SLITTER AND INSPECTOR [address] [facility] [place] [address] Endocrinology 05/25/24 Lydia Grande, CLINICAL LAW PROFESSOR.INSIDE H[employer]ICULTURAL SPECIALTY GROWER [address] [facility] [place] [address] [facility] Internal Medicine 06/25/24 Davon Wolfe, CLINICAL LAW PROFESSOR.PLATE SLITTER AND INSPECTOR [address] [facility] [place] [address] [facility] Internal Medicine 10/09/24 Team Status: Inactive Member Role Status Dates Dr. Octavio Reza MD Primary Care Provider Active Start: October 19, 2024 End: October 19, 2024 Dr. Holland Sanches DO Attending Provider Active Start: October 19, 2024 End: October 19, 2024 Dr. Holland Sanches DO Emergency Provider Active Start: October 19, 2024 End: October 19, 2024 Team Status: Inactive Member Role Status Dates Dr. Octavio Reza MD Primary Care Provider Active Start: October 24, 2024 End: October 24, 2024 Dr. Benjamín Stanford , DO Emergency Provider Active Start : October 24, 2024 End: October 24, 2024 Cocktail Lounge Manager Relationship Specialty Start Date End Date Octavio Reza MD [address] [place] [address] PCP - General Internal Medicine 08/24/10 [facility] [address] [place] [address] Pharmacist Pharmacy 01/12/24 Renetta Mcgee CLINICAL LAW PROFESSOR.PLATE SLITTER AND INSPECTOR [address] [place] [address] Endocrinology 05/25/24 Lydia Grande, CLINICAL LAW PROFESSOR.INSIDE H[employer]ICULTURAL SPECIALTY GROWER [address] [place] [address] Pickling Machine Operator Internal Medicine 06/25/24 Davon Wolfe, CLINICAL LAW PROFESSOR.PLATE SLITTER AND INSPECTOR [address] [place] [address] Pickling Machine Operator Internal Medicine 10/09/24 Cocktail Lounge Manager Relationship Specialty Start Date End Date Octavio Reza MD [address] [place] [address] PCP - General Internal Medicine 08/24/10 [facility] [address] [place] [address] Pharmacist Pharmacy 01/12/24 Renetta Mcgee CLINICAL LAW PROFESSOR.PLATE SLITTER AND INSPECTOR [address] [place] [address] Endocrinology 05/25/24 Lydia Grande CLINICAL LAW PROFESSOR.INSIDE HORTICULTURAL SPECIALTY GROWER [address] [place] [address] Pickling Machine Operator Internal Medicine 06/25/24 Davon Wolfe APRN.PLATE SLITTER AND INSPECTOR [address] [place] [address] Pickling Machine Operator Internal Medicine 10/09/24 Team Status: Inactive Member Role Status Dates Dr. Octavio Reza MD Primary Care Provider Active Start: October 24, 2024 End: October 24, 2024 Dr. Benjamín Stanford DO Attending Provider Active Start : October 24, 2024 End: October 24, 2024 Dr. Benjamín Stanford DO Emergency Provider Active Start : October 24, 2024 End: October 24, 2024 Team Status: Inactive Member Role Status Dates Dr. Octavio Reza MD Primary Care Provider Active Start: November 03, 2024 End: November 03, 2024 Dr. Zay Juan DO Emergency Provider Active Start: November 03, 2024 End: November 03, 2024 Cocktail Lounge Manager Relationship Specialty Start Date End Date Octavio Reza MD [address] [facility] [place] [address] PCP - General Internal Medicine 08/24/10 Charis Lucas RP [address] [place] [place] [address] Pharmacist Pharmacy 01/12/24 Renetta Mcgee APRN.PLATE SLITTER AND INSPECTOR [address] [facility] [place] [address] Endocrinology 05/25/24 Lydia Grande APRN.INSIDE HORTICULTURAL SPECIALTY GROWER [address] [facility] [place] [address] Pickling Machine Operator Internal Medicine 06/25/24 Davon Wolfe APRN.PLATE SLITTER AND INSPECTOR [address] [facility] [place] [address] Pickling Machine Operator Internal Medicine 10/09/24 Team Status: Inactive Member Role Status Dates Dr. Octavio Reza MD Primary Care Provider Active Start: November 03, 2024 End: November 03, 2024 Dr. Zay Juan , DO Attending Provider Active Start: November 03, 2024 End: November 03, 2024 Dr. Zay Juan , Emergency Provider Active Start: November 03, 2024 End: November 03, 2024 Team Status: Inactive Member Role Status Dates Dr. Octavio Reza MD Primary Care Provider Active Start: November 15, 2024 End: November 15, 2024 Dr. Octavio Reza MD Referring Provider Active Start: November 15, 2024 End: November 15, 2024 Areli Estevez PA, PA Attending Provider Active Start: November 15, 2024 End: November 15, 2024 Team Status: Inactive Member Role Status Dates Dr. Octavio Reza MD Primary Care Provider Active Start: November 29, 2024 End: November 29, 2024 Serg Solis MD Emergency Provider Active Star t: November 29, 2024 End: November 29, 2024 Cocktail Lounge Manager Relationship Specialty Start Date End Date Octavio Reza MD [address] [facility] [place] [address] PCP - General Internal Medicine 08/24/10 Charis Lucas RPh [address] [facility], [place] [phone] Pharmacist Pharmacy 01/12/24 Renetta Mcgee, CLINICAL LAW PROFESSOR.PLATE SLITTER AND INSPECTOR [address] [facility], [place] [address] Endocrinology 05/25/24 Davon Wolfe CLINICAL LAW PROFESSOR.PLATE SLITTER AND INSPECTOR [address] [place], [place] [address] Pickling Machine Operator Internal Medicine 10/09/24 Lydia Grande, CLINICAL LAW PROFESSOR.INSIDE HORTICULTURAL SPECIALTY GROWER [address] [place] [address] [facility] Internal Medicine 12/05/24 Cocktail Lounge Manager Relationship Specialty Start Date End Date Octavio Reza MD [address] [place] [address] PCP - General Internal Medicine 08/24/10 [facility] [address] [place] [address] Pharmacist Pharmacy 01/12/24 Renetta Mcgee CLINICAL LAW PROFESSOR.PLATE SLITTER AND INSPECTOR [address] [place] [address] Endocrinology 05/25/24 Davon Wolfe CLINICAL LAW PROFESSOR.PLATE SLITTER AND INSPECTOR [address] [place] [address] Pickling Machine Operator Internal Medicine 10/09/24 Lydia Grande, CLINICAL LAW PROFESSOR.INSIDE HORTICULTURAL SPECIALTY GROWER [address] [place] [address] [facility] Internal Medicine 12/05/24 Cocktail Lounge Manager Relationship Specialty Start Date End Date Octavio Reza MD [address] [place] [address] PCP - General Internal Medicine 08/24/10 [facility] [address] [place] [address] Pharmacist Pharmacy 01/12/24 Renetta Mcgee CLINICAL LAW PROFESSOR.PLATE SLITTER AND INSPECTOR [address] [place] [address] Endocrinology 05/25/24 Davon Wolfe CLINICAL LAW PROFESSOR.PLATE SLITTER AND INSPECTOR [address] [facility] [place] [id number] Pickling Machine Operator Internal Medicine 10/09/24 Lydia Grande APRN.INSIDE HORTICULTURAL SPECIALTY GROWER [address] [facility] [place] [address] [facility] Internal Medicine 12/05/24 Team Status: Active Member Role Status Dates Dr. Alex Gan MD Attending Provider Active Start: November 03, 2024 Dr. Zay Juan DO Referring Provider Active Start: November 03, 2024 Team Status: Inactive Member Role Status Dates Dr. Octavio Reza MD Primary Care Provider Active Start: November 29, 2024 End: November 29, 2024 Serg Solis MD Attending Provider Active Star t: November 29, 2024 End: November 29, 2024 Serg Solis MD Emergency Provider Active Star t: November 29, 2024 End: November 29, 2024 Team Status: Inactive Member Role Status Dates Dr. Octavio Reza MD Primary Care Provider Active Start: December 19, 2024 End: December 19, 2024 Dr. Abdulaziz Stratton MD Emergency Provider Active S tart: December 19, 2024 End: December 19, 2024 Cocktail Lounge Manager Relationship Specialty Start Date End Date Octavio Reza MD [address] [facility], [place] [id number] PCP - General Internal Medicine 08/24/10 Charis Lucas RPh [address] [place], [place] [phone] Pharmacist Pharmacy 01/12/24 Renetta Mcgee APRN.PLATE SLITTER AND INSPECTOR [address] [place], [place] [id number] Endocrinology 05/25/24 Davon Wolfe APRN.PLATE SLITTER AND INSPECTOR [address] [place] [address] Pickling Machine Operator Internal Medicine 10/09/24 Lydia Grande APRN.INSIDE HORTICULTURAL SPECIALTY GROWER [address] [place] [address] [facility] Internal Medicine 12/05/24 Cocktail Lounge Manager Relationship Specialty Start Date End Date Octavio Reza MD [address] [place] [address] PCP - General Internal Medicine 08/24/10 Charis Lucas [facility] [address] [place] [address] Pharmacist Pharmacy 01/12/24 Renetta Mcgee APRN.PLATE SLITTER AND INSPECTOR [address] [facility] [place] [address] Endocrinology 05/25/24 Davon Wolfe APRN.PLATE SLITTER AND INSPECTOR [address] [place] [address] [facility] Internal Medicine 10/09/24 Lydia Grande APRN.INSIDE HORTICULTURAL SPECIALTY GROWER [address] [place] [address] [facility] Internal Medicine 12/05/24 Goals (unrecognized section and content) Goals may be documented in a n alternate sectionGoals may be documented in an alternate sectionGoals may be documented in an alternate sectionGoals may be documented in an alternate sectionGoals may be documented in an alternate sectionGoals may be documented in an alternate sectionGoals may be documented in an alternate sectionGoals may be documented in an alternate sectionGoals may be documented in an alternate sectionGoals may be documented in an alternate sectionGoals may be documented in an alternate sectionGoals may be documented in an alternate sectionGoals may be documented in an alternate sectionGoals may be documented in an alternate sectionGoals may be documented in an alternate sectionGoals may be documented in an alternate sectionGoals may be documented in an alternate sectionGoals may be documented in an alternate sectionGoals may be documented in an alternate sectionGoals may be documented in an alternate sectionGoals may be documented in an alternate sectionGoals may be documented in an alternate section INFORMATION SOURCE (unrecogn ized section and content) DATE CREATED AUTHOR 11/01/2023 [facility] DATE CREATED AUTHOR AUTHOR'S ORGANIZ ATION 12/23/2024 [facility] DATE CREATED AUTHOR AUTHOR'S ORGANIZ ATION 12/24/2024 [facility] FOR RECORDS PERTAINING TO PATIENTS WHO ARE [...] BE BASED ON THE PRIMARY CLINICAL RECORDS. [employer] [facility]. provides no warranty or guarantee of the accuracy or completeness of information in this document.
[2025-01-04 20:05] LABS: Absolute Neutrophil Count 3.9 X10^3/uL (2.0-7.7); Basophil# 0.03 X10^3/uL; Basophil% 0.5 % (0-1); Eosinophil# 0.36 X10^3/uL; Eosinophils% 5.7 % (0-5); Hematocrit 36.1 % (37-47); Hemoglobin 12.1 g/dL (12.0-15.0); Lymphocyte % 22.3 % (19-41); Mean Corp Hgb Conc 33.5 g/dL (32-36); Mean Corpuscular Hgb 29.7 pg (27.0-32.0); Mean Corpuscular Volume 88.7 fL (81-99); Mean Platelet Vol. 12.2 fl (6.2-12.0); Monocyte# 0.61 X10^3/uL; Monocyte% 9.7 % (0-10); NRBC Flagged by Analyzer 0 % (0-5); Neutrophil # 3.86 X10^3/uL (2.7-7.7); Neutrophil % 61.6 % (47-70); Platelet Count 193 K/mm3 (150-450); RBC Distribution Width CV 12.3 % (11.6-14.6); RBC Distribution Width SD 40.1 fl (35.1-43.9); Red Blood Count 4.07 M/mm3 (4.2-5.4); White Blood Count 6.3 K/mm3 (4.4-11.0)
[2025-01-04 20:23] LABS: Anion Gap 11 (5-15); BUN 23 mg/dL (4-19); BUN/Creat Ratio 24.4 RATIO (10-20); Calcium,Total 9.2 mg/dL (7.6-11.0); Carbon Dioxide 25.6 mmol/L (21.0-32.0); Chloride 103 mmol/L (98-108); Creatinine, Serum 0.93 mg/dL (0.70-1.20); EST Glomerular Filtration Rate 63 (>60); Glucose 93 mg/dL (70-99); Sodium Level 140 mmol/L (133-145); Troponin T High Sensitivity 15 ng/L (<=14)
[2025-01-04] MEDS: Aspirin 81 MG TAB.CHEW 324 MG PO (20:44)
[2025-01-04 22:43] LABS: Troponin T High Sens 2 HR 13 ng/L (<=14)
[2025-01-04 23:32] LABS: Bedside Glucose 114 mg/dL (74-106)
== END 2025-01-04 23:16 | disposition home or self-care (01) ==
PROVIDERS: Physician Assistant; Emergency Provider Emergency Medicine; PCP Internal Medicine; Visit Provider Emergency Medicine
DX: R07.9 Chest pain, unspecified (principal); E11.9 Type 2 diabetes mellitus without complications; I10 Essential (primary) hypertension; G47.33 Obstructive sleep apnea (adult) (pediatric); J45.909 Unspecified asthma, uncomplicated; Z87.891 Personal history of nicotine dependence; Z86.718 Personal history of other venous thrombosis and embolism
CPT/HCPCS: 71046; 80048; 82962; 84484; 85025; 93005; 99284; A4216

== ENCOUNTER 2025-01-25 20:38 | Emergency (ER) | payer MEDICARE, SELFPAY ==
[2025-01-25 20:39] VITALS: BP 164/78; PULSE 66; RESP 18; TEMP 36.4; O2SAT 96
--- OUTSIDE RECORDS SUMMARY | 2025-01-25 21:27 | XMS RPT_ITS | CCD ---
Author Organization [facility] Care Team Providers [employer] Resource Teacher Name Role Phone Lydia Cook Unavailable Unavailable [...] Dr. Krystian Sandoval Other Provider Dr. Mei Gracia Attending Provider Dr. Mei Garcia Other Provider [...] Referring Provider Dr. Octavio Reza Referring Provider [facility] CLOCK SMITH, CLOCK SMITH-Sourav Rowe Attending Provider TAMIKA MORRIS Referring Unavailable OCTAVIO REZA Primary Care Unavailable Octavio Reza MD Primary Care Provider [facility], Charis Unavailable Clinton YING, Federica Rabago Unavailable Cioce CORRECTIONAL CAPTAIN.COMPUTER NUMERICAL CONTROL PROGRAMMER, Renetta C Unavailable Clinton YING, Federica Rabago Unavailable Grande CORRECTIONAL CAPTAIN.VP CUSTOMER SERVICE, Lydia Unavailable Narda CORRECTIONAL CAPTAIN.COMPUTER NUMERICAL CONTROL PROGRAMMER, Davon Unavailable Narda CORRECTIONAL CAPTAIN.COMPUTER NUMERICAL CONTROL PROGRAMMER, Davon Monica Unavailable Narda CORRECTIONAL CAPTAIN.COMPUTER NUMERICAL CONTROL PROGRAMMER, Davon Unavailable Dr. Octavio Reza MD Primary Care Provider [phone] Dr. Reyna Monzon DO Attending Provider [phone] Reyna Monzon DO Emergency Provider Dr. Lars Dahl DO Attending Provider Dr. Lars Dahl DO Referring Provider Hesham SANDERS, Dr. Sousa Emergency Provider Areli Gauthier Attending Provider Areli Gauthier Referring Provider Dr. Miguel Angel Bosch MD Attending Provider Areli Gauthier Other Provider [phone] Ashwini JOSE, Dr. Bell Attending Provider Slime JOSE, Dr. Otcavio Zapata Referring Provider SharanMelita SANDERS, Dr. Clark Attending Provider [facility] Dr. Clark Emergency Provider Verónica SANDERS, Dr. Lino Emergency Provider Slime JOSE, Dr. Octavio Zapata Primary Care Provider [phone] Hesham SANDERS, Dr. Sousa Attending Provider Hesham [...] Viral JOSE, Dr. Cintron Emergency Provider Narda CORRECTIONAL CAPTAIN.COMPUTER NUMERICAL CONTROL PROGRAMMER, Davon Unavailable Slime JOSE, Dr. Octavio Zapata Primary Care Provider Hesham SANDERS, Dr. Sousa Attending Provider Dr. Lars Dahl DO Emergency Provider Verónica SANDERS, Dr. Lino Attending Provider Viral JOSE, Dr. Cintron Attending Provider Hien SANDERS, Dr. Butts Emergency Provider Dr. Octavio Reza MD Primary Care Provider [phone] Hien SANDERS, Dr. Butts Attending Provider Dr. Zay Juan DO Emergency Provider Dr. Octavio Reza MD Primary Care Provider [phone] Hesham SANDERS, Dr. Sousa Attending Provider Hesham SANDERS, Dr. Sousa Emergency Provider Dr. Zay Juan DO Attending Provider Dr. Octavio Reza MD Referring Provider Herb LOWRY, Areli Shoemaker Attending Provider Serg Solis MD Emergency Provider Grande CORRECTIONAL CAPTAIN.VP CUSTOMER SERVICE, Lydia Unavailable Malik JOSE, Dr. Alex Worrell Attending Provider Dr. Zay Juan DO Referring Provider Serg Solis MD Attending Provider Dr. Octavio Reza MD Primary Care Provider Dr. Lars Dahl DO Attending Provider Dr. Lars Dahl DO Emergency Provider Dr. Holland Sanches DO Attending Provider Dr. Holland Sanches DO Emergency Provider Viral JOSE, Dr. Cintron Attending Provider Viral JOSE, Dr. Cintron Emergency Provider Hien SANDERS, Dr. Butts Attending Provider Hien SANDERS, Dr. Butts Emergency Provider Yessica SANDERS, Dr. Collazo Attending Provider Yessica SANDERS, Dr. Collazo Emergency Provider Malik JOSE, Dr. Alex Worrell Attending Provider Yessica SANDERS, Dr. Collazo Referring Provider Slime JOSE, Dr. Octavio Zapata Referring Provider Areli Gauthier Attending Provider Serg Solis MD Attending Provider Serg Solis MD Emergency Provider Jesus CLOCK SMITH-Jae Benjamin Attending Provider Talampas, Octavio D Primary Care Unavailable Lydia Grande NP Referring Unavailable Lydia Grande NP Attending Unavailable Benjamín Stanford Attending Unavailable Talampas, Octavio D Primary Care Unavailable Talampas, Octavio D Primary Care Unavailable Tierney Francis Attending Unavailable Lars Dahl Referring Unavailable DahlLars Attending Unavailable Talampas, Octavio D Primary Care Unavailable Talampas, Octavio D Primary Care Unavailable Areli Gauthier Attending Unavail able Areli Gauthier Referring Unavail able Jae Lee NP Attending Unavailable Talampas, Octavio D Primary Care Unavailable Talampas, Octavio D Referring Unavailable Talampas, Octavio D Primary Care Unavailable Talampas, Octavio D Referring Unavailable Miguel Angel Bosch Attending Unavailable Miguel Angel Bosch Attending Unavailable Talampas, Octavio D Primary Care Unavailable Areli Gauthier Referring Unavail able Talampas, Octavio D Referring Unavailable Areli Gauthier Attending Unavail able Talampas, Octavio D Primary Care Unavailable Forest Smith Attending Unavailable Talampas, Octavio D Primary Care Unavailable Mark Castillo Attending Unavailable Talampas, Octavio D Primary Care Unavailable Zay Juan Attending Unavailable Talampas, Octavio D Primary Care Unavailable Talampas, Octavio D Primary Care Unavailable Serg Solis Attending Unavailable Talampas, Octavio D Primary Care Unavailable Abdulaziz Stratton Attending Unavailable Talampas, Octavio D Primary Care Unavailable Abdulaziz Stratton Attending Unavailable CraigHolland guillory Attending Unavailable Talampas, Octavio D Primary Care Unavailable Reyna Monzon Attending Unavailable Talampas, Octavio D Primary Care Unavailable Holland Sanches Attending Unavailable Talampas, Octavio D Primary Care Unavailable Talampas, Octavio D Primary Care Unavailable Zay Jaun Attending Unavailable Holland Sanches Attending Unavailable Talampas, Octavio D Primary Care Unavailable Reyna Monzon Attending Unavailable Talampas, Octavio D Primary Care Unavailable Talampas, Octavio D Primary Care Unavailable Herb LOWRY, Areli Shoemaker Attending Unavail able Areli Gauthier Referring Unavail able Ray Maradiaga Attending Unavailable Talampas, Octavio D Primary Care Unavailable Areli Gauthier Consulting Unavail able Areli Gauthier Referring Unavail able Talampas, Octavio D Primary Care Unavailable Eduardo Paz Attending UnavailLars Franco Attending Unavailable Talampas, Octavio D Primary Care Unavailable Lars Dalh Attending Unavailable Talampas, Octavio D Primary Care Unavailable TALAMPAS, OCTAVIO D Primary Care Unavailable DAVON WOLFE Attending Unavailable TALAMPAS, OCTAVIO D Primary Care Unavailable RENETTA MCGEE Referring Unavailable TALAMPAS, OCTAVIO D Primary Care Unavailable GRANDE LYDIA Referring Unavailable TALAMPAS, OCTAVIO D Primary Care Unavailable GRANDELYDIA Attending Unavailable TALAMPAS, OCTAVIO D Primary Care Unavailable SERGO PEREZ Attending Unavailable TALAMPAS, OCTAVIO D Primary Care Unavailable TALAMPAS, OCTAVIO D Primary Care Unavailable JESSEEMALGORZATAE C Referring Unavailable TALAMPAS, OCTAVIO D Primary Care Unavailable TALAMPAS, OCTAVIO D Primary Care Unavailable TALAMPAS, OCTAVIO D Primary Care Unavailable TALAMPAS, OCTAVIO D Primary Care Unavailable JEANNINE PERKINS Referring Unavailable TALAMPAS, OCTAVIO D Attending Unavailable TALAMPAS, OCTAVIO D Primary Care Unavailable TALAMPAS, OCTAVIO D Referring Unavailable TALAMPAS, OCTAVIO D Primary Care Unavailable TALAMPAS, OCTAVIO D Primary Care Unavailable ARIANE TESFAYE Attending Unavailable TALAMPAS, OCTAVIO D Primary Care Unavailable RENETTA MCGEE Attending Unavailable TALAMPAS, OCTAVIO D Primary Care Unavailable TALAMPAS, OCTAVIO D Primary Care Unavailable JEANNINE PERKINS Referring Unavailable JEANNINE PERKINS Attending Unavailable TALAMPAS, OCTAVIO D Attending Unavailable TALAMPAS, OCTAVIO D Primary Care Unavailable TALAMPAS, OCTAVIO D Primary Care Unavailable TALAMPAS, OCTAVIO D Primary Care Unavailable SMILEY PRIETO Referring Unavailable TALAMPAS, OCTAVIO D Primary Care Unavailable SERGO PEREZ Attending Unavailable TALAMPAS, OCTAVIO D Primary Care Unavailable TALAMPAS, OCTAVIO D Primary Care Unavailable RENETTA MCGEE Attending Unavailable TALAMPAS, OCTAVIO D Attending Unavailable TALAMPAS, OCTAVIO D Primary Care Unavailable TALAMPAS, OCTAVIO D Primary Care Unavailable TALAMPAS, OCTAVIO D Referring Unavailable TALAMPAS, OCTAVIO D Primary Care Unavailable TALAMPAS, OCTAVIO D Attending Unavailable SELF Referring Unavailable TALAMPAS, OCTAVIO D Primary Care Unavailable RENETTA MCGEE Attending Unavailable TALAMPAS, OCTAVIO D Primary Care Unavailable TALAMPAS, OCTAVIO D Primary Care Unavailable TALAMPAS, OCTAVIO D Referring Unavailable TALAMPAS, OCTAVIO D Primary Care Unavailable TALAMPAS, OCTAVIO D Attending Unavailable TALAMPAS, OCTAVIO D Primary Care Unavailable SELF Referring Unavailable Allergies Allergy Classification Reported Allergen(s) Allergy Type Date of Onset Reaction(s) Facility Acetaminophen / Codeine (2 sources) Acetaminophen / Codeine Drug Allergy 005 Vomiting [facility] Albuterol (2 sources) Albuterol Drug Allergy 014 GI Upset, Vomiting [facility] Work Phone: aMILoride / hydroCHLOROthiazide (2 sources) aMILoride / hydroCHLOROthiazide Drug Allergy 011 Other: See Comments [facility] Doxycycline (2 sources) Doxycycline Drug Allergy 023 GI Upset [facility] Lysine (2 sources) Lysine Drug Allergy 023 Itching [facility] NSAIDs (2 sources) Naproxen Drug Allergy 005 GI Upset [facility] Work Phone: Oseltamivir (2 sources) Oseltamivir Drug Allergy 024 Mental Status Change [facility] Serotonin Reuptake Inhibitors (SSRIs) (2 sources) Escitalopram Drug Allergy 013 Intolerance [facility] (20 sources) codeine; Translations: [codeine] drug allergy 012 nausea/vomit ing, Nausea [facility] Work Phone: (6 sources) [facility] (20 sources) Acetaminophen / Codeine; Translations: [ACETAMINOPHEN-CODEIN E] Drug Allergy 005 Vomiting [facility] Work Phone: (20 sources) Albuterol; Translations: [ALBUTEROL SULFATE] Drug Allergy 014 GI Upset, Vomiting [facility] Work Phone: (20 sources) aMILoride / hydroCHLOROthiazide; Translations: [AMILORIDE-HYDROCHLOR OTHIAZIDE] Drug Allergy 011 Other: See Comments [facility] Work Phone: (20 sources) atorvastatin; Translations: [ATORVASTATIN] Drug Allergy 015 Myalgia [facility] Work Phone: (20 sources) Escitalopram; Translations: [ESCITALOPRAM] Drug Allergy 013 Intolerance [facility] Work Phone: (20 sources) Naproxen; Translations: [NAPROXEN] Drug Allergy 005 GI Upset [facility] Work Phone: (20 sources) Pravastatin; Translations: [PRAVASTATIN] Drug Allergy 017 GI Upset [facility] Work Phone: (20 sources) rosuvastatin; Translations: [ROSUVASTATIN] Drug Allergy 021 Intolerance [facility] Work Phone: (20 sources) Simvastatin; Translations: [SIMVASTATIN] Drug Allergy 017 Myalgia [facility] Work Phone: (5 sources) Albuterol Drug Allergy nausea, vomiting [facility] Work Phone: (20 sources) hydroCHLOROthiazide Drug Allergy Other [facility] (20 sources) Ycjpipr-Dnu-Tui Reductase Inhibitor; Translations: [Kmscizm-Wlu-Ubk Reductase Inhibitor] Propensity to adverse reactions myalgias [facility] (20 sources) Doxycycline; Translations: [DOXYCYCLINE] Drug Allergy GI Upset [facility] Work Phone: (20 sources) Amoxicillin Drug Allergy Other [facility] Comment on above: palpitations (20 sources) Clavulanate Drug Allergy Other [facility] Comment on above: palpitations (4 sources) Acetaminophen Drug Allergy dystonia [facility] (18 sources) Amiodarone Drug Allergy Swelling [facility] Comment on above: SOB (18 sources) amLODIPine Drug Allergy Abd cramps/diarr hea [facility] Comment on above: states she went into a.fib felt awful (4 sources) Ascorbic Acid Drug Allergy Itching [facility] (18 sources) [place] fruit Allergy to substance Hives [facility] (18 sources) desloratadine Drug Allergy headache [facility] (18 sources) Glutamine Drug Allergy Itching [facility] (18 sources) HYDROcodone Drug Allergy dystonia [facility] (18 sources) HYDROmorphone Drug Allergy Anaphylaxis [facility] Comment on above: sob (19 sources) Lysine; Translations: [lysine HCl] Drug Allergy Itching [facility] (18 sources) Morphine Drug Allergy confusion [facility] (18 sources) moxifloxacin Drug Allergy Shortness of breath [facility] (18 sources) nabumetone Drug Allergy damaged kidney [facility] (18 sources) Penicillin G Drug Allergy 03-01-2 024 TURNS BLUE [facility] (18 sources) Propoxyphene Drug Allergy PT UNSURE OF REACTION [facility] (18 sources) traMADol Drug Allergy Anaphylaxis [facility] (19 sources) herbal complex no.124; Translations: [herbal complex no.124] Allergy to substance Itching [facility] (19 sources) multivitamin with minerals; Translations: [multivitamin with minerals] Allergy to substance Itching [facility] (20 sources) Oseltamivir; Translations: [OSELTAMIVIR] Drug Allergy Mental Status Change [facility] (20 sources) HMG-CoA reductase inhibitor; Translations: [UHQTXBD-SUN-RYF REDUCTASE INHIBITORS] Drug Intolerance Myalgia [facility] (20 sources) Lysine; Translations: [LYSINE] Drug Allergy 023 Itching [facility] (1 source) Amiodarone Drug Allergy [facility] Repository (1 source) amLODIPine Drug Allergy [facility] Repository (1 source) Amoxicillin Drug Allergy [facility] Rep[facility] (1 source) Clavulanate Drug Allergy [facility] Rep[facility] (1 source) desloratadine Drug Allergy [facility] (1 source) Escitalopram Drug Allergy [facility] (1 source) Glutamine Drug Allergy [facility] (1 source) hydroCHLOROthiazide Drug Allergy [facility] (1 source) HYDROcodone Drug Allergy [facility] (1 source) HYDROmorphone Drug Allergy [facility] (1 source) Morphine Drug Allergy [facility] (1 source) moxifloxacin Drug Allergy [facility] (1 source) nabumetone Drug Allergy [facility] (1 source) Naproxen Drug Allergy [facility] (1 source) Oseltamivir Drug Allergy [facility] (1 source) Penicillin Drug Allergy [facility] (1 source) Pravastatin Drug Allergy [facility] (1 source) Propoxyphene Drug Allergy [facility] (1 source) rosuvastatin Drug Allergy [facility] (1 source) Simvastatin Drug Allergy [facility] (1 source) traMADol Drug Allergy [facility] Rep[facility] (1 source) [place] And Derivatives Drug allergy (disorder) [facility] Repository Medications Current Medications Medication Drug Class(es) Dates Sig (Normalized) Sig (Original) [id number] actuat albuterol 0.09 mg/actuat metered dose [...] 4 times daily as needed for sob 8.July 14, 2022 3:20pm November 28, 2023 9:35pm use four times a day for the next seven days, then use every 6 hours as needed for shortness of breath Start: 07-14-2022 End: 11-28-2023 Albuterol Sulfate (Ventolin Hfa) 90 mcg/actuation HFA aerosol inhaler Discontinued 2 PUFF INHALATION 4 times daily 8.July 14, 2022 3:20pm November 28, 2023 9:35pm [...] 11 06/09/2020 06/11/2024 Discontinued Start: 12-03-2019 End: 11-28-2023 Start: 12-03-2019 End: 07-14-2022 Albuterol Sulfate (Ventolin [...] (20 sources) Dihydropyridine Calcium Channel Ariella Start: 01-16-20 take 1 tablet by mouth once daily amLODIPine (NORVASC) 10 mg tablet Take 1 tablet by mouth once daily. (Jae Lee sent prescription to take 10 mg daily) 01/15/2025 Active Start: 10-01-2023 End: 01-14-2025 Start: 10-01-2023 take 5 mg by mouth once daily Amlodipine Active 5 MG PO DAILY October 01, 2023 12:00am Start: 10-01-2023 take 10 mg by mouth once daily Amlodipine Active 10 MG PO DAILY October 01, 2023 12:00am Start: 02-15-2022 End: 01-15-2025 take 0.5 tablet by mouth once daily amLODIPine (NORVASC) 10 mg tablet Take 0.5 tablets by mouth once daily. 90 tablet 3 06/11/2024 01/15/2025 Discontinued Start: 01-11-2022 End: 02-15-2022 take 1 tablet by mouth once daily amLODIPine (NORVASC) 10 mg tablet Take 1 tablet by mouth once daily. 90 tablet 3 01/11/2022 02/15/2022 Discontinued (Adjust Sig - Block E-Cancel) Start: 02-12-2021 End: 10-01-2023 Comment on above: Take 5 mg by mouth o nce daily. Take 1 tablet by julito th once daily. Take 0.5 tablets by mouth once daily. amoxicillin 875 mg oral tablet (3 sources) Penicillin-class Antibacterial Start: 4 End: 4 take 1 tablet by mouth twice daily amoxicillin (AMOXIL) 875 mg tablet Indications: Dental abscess Take 1 tablet by mouth two times a day for 7 days. 14 tablet 05/07/2024 05/14/2024 Active aspirin 81 mg delayed release oral tablet (20 sources) Nonsteroidal Anti-inflammatory Drug Start: 8 End: 5 take 1 tablet by mouth twice daily [...] Start: 03-01-2012 take 1 tablet by julito once daily ASPIRIN 81 MG TABS One tablet by mouth daily ASPIRIN [id number] Karina Villarreal RN Start: 03-01-2012 take 1 tablet by julito once daily ASPIRIN EC 81 MG TBEC One tablet by mouth daily ASPIRIN [id number] Bettina Vaca RN Comment on above: Take 1 tablet by julito once daily. Take 1 tablet by julito two times a day. benzonatate 100 mg oral capsule (20 sources) Non-narcotic Antitussive Start: 04-18-20 End: 01-16-20 25 take 1 capsule by mouth every eight hours as needed benzonatate (TESSALON PERLES) 100 mg capsule Take 1 capsule by mouth three times a day as needed for cough. 30 capsule 2 01/15/2025 Active 60 actuat budesonide 0.16 mg/actuat / formoterol fumarate 0.0045 mg/actuat metered dose inhaler (20 sources) Corticosteroid, beta2-Adrenergic Agonist Start: 03-07-20 End: 06-10-20 take 2 puff(s) by inhalation twice daily SYMBICORT 160-4.5 mcg/actuation inhaler Indications: Severe persistent asthma without complication (HCC) Inhale 2 puffs as instructed two times a day. 11 g 5 12/12/2024 06/10/2025 Active Start: 03-02-2024 End: 05-25-2024 Start: 03-02-2024 End: 05-25-2024 Budesonide-Formoterol (Symbi holly) [...] 1 Each 5 06/21/2022 Active Start: 12-21-2021 Start: 12-21-2021 Budesonide-For moterol 160-4.5 mcg/actuation HFA aerosol inhaler Active 2 NMA INHALATION TWICE A DAY December 21, 2021 12:00am Start: 12-21-2021 Budesonide-For moterol 160-4.5 mcg/actuation HFA aerosol inhaler Active 2 NMA INHALATION TWICE A DAY December 20, 2021 11:00pm Start: 06-06-2022 take 1 puff(s) by in halation twice [...] Puffs as instructed twice daily. 1 Each 12/17/2021 12/23/2021 Discontinued (Duplicate Entry) Start: 12-16-2021 [...] 5 04/30/2021 Active Start: 01-22-2021 End: 12-21-2021 Start: 01-22-2021 End: 06-22-2021 Start: 01-22-2021 End: 12-21-2021 Budesonide-Formoterol 80-4.5 mcg/actuation [...] inhale 1 puff twice daily BUDESONIDE-FORMOTEROL FUMARATE [id number] Bettina Vaca RN Start: 10-12-2013 SYMBICORT 160- 4.5 MCG/ACT AERO as directed BUDESONIDE-FORMOTEROL FUMARATE [id number] PAZ BradfordC Comment on above: Inhale 2 Puffs as in structed twice daily. Inhale 2 Puffs as in structed two times a day. chlorhexidine gluconate 1.2 mg/ml mouthwash (20 sources) Start: 05-15-20 Chlorhexidine Gluconate (PERIDEX) 0.12 % solution Use 15 mL as instructed two times a day. 05/15/2024 Active cholecalciferol 1.25 mg oral capsule (20 sources) Vitamin D Start: 12-03-19 End: 10-16-19 take 1 capsule by mouth every week cholecalciferol, Vitamin D3, (VITAMIN D3) 1,250 mcg (50,000 unit) cap capsule Indications: Vitamin D deficiency Take 1 capsule by mouth one time a week. 12 capsule 4 10/15/2024 Active Start: 12-03-2019 take 1 capsule by [facility] every week Cholecalciferol (Vitamin D3) 1,250 mcg (50,000 unit) capsule Active 1250 ug PO EVERY WEEK December 03, 2019 12:00am Comment on above: Take 1 capsule by [facility] one time a week. dexamethasone 6 mg [...] oral tablet (20 sources) Loop Diuretic Start: 01-23-20 End: 11-16-19 take 1 tablet by mouth once daily as needed furosemide (LASIX) 20 mg tablet Take 1 tablet by mouth once daily as needed. 90 tablet 3 03/01/2023 Active Start: 01-22-2021 End: 11-15-2024 Comment on above: Take 1 tablet by [...] once daily 06/19/2024 10/31/2024 Discontinued Start: 06-13-2024 End: 01-14-2025 Start: 06-13-2024 Insulin Glargi ne (Lantus Solostar [...] Discontinued (Adjust Sig - Block E-Cancel) Start: 11-21-2023 End: 12-07-2023 inject 26 [IU] [...] - Block E-Cancel) Start: 11-07-2023 End: 06-13-2024 inject 30 [IU] by subcutaneous injection once daily at bedtime insulin glargine 100 unit/mL (3 mL) Inject 30 Units subcutaneously daily at bedtime. Give Lantus, not Basaglar per patient preference 5 Each 12/07/2023 03/12/2024 Discontinued Start: 11-07-2023 End: 06-13-2024 Insulin Glargine (Lantus [...] 2022 11:49am July 20, 2022 11:26am Start: 01-11-2022 End: 02-28-2023 inject 27 [IU] [...] June 22, 2022 11:51am Start: 01-19-2019 End: 07-20-2022 Start: 01-19-2019 End: 01-11-2022 inject 20-25 [IU] by subcutaneous injection at bedtime Insulin Glargine Discontinued 20 - 25 UNIT SQ AT BEDTIME January 19, 2019 12:00am January 22, 2021 11:03am Start: 12-16-2016 End: 12-04-2018 Start: 12-16-2016 End: 12-04-2018 Insulin Glargine 100 UNIT/ML solution Discontinued 22 U SC AT BEDTIME December 16, 2016 12:00am December 04, 2018 2:15pm Start: 03-06-2016 End: 03-11-2016 Start: 03-06-2016 End: 03-11-2016 inject 22 [IU] by subcutaneous injection at bedtime Insulin Glargine (Lantus) 100 UNIT/ML Ml Discontinued 22 U SQ AT BEDTIME March 06, 2016 12:00am March 11, 2016 2:28pm Start: 03-01-2012 LANTUS 100 UNI T/ML SOLN as directed INSULIN GLARGINE [id number] Chris Lott MD Start: 03-01-2012 LANTUS 100 UNI T/ML SOLN take at bedtime as instructed INSULIN GLARGINE [id number] Karina Villarreal RN Comment on above: Inject 27 Units subc utaneously daily at bedtime. Give Lantus, not Basaglar per patient preference Insulin Glargine-Yfgn (20 sources) Start: 08-02-2022 Insulin Glargine-Yfgn Active 24 UNIT SC TWICE A DAY August 02, 2022 1:35pm Start: 08-02-2022 Insulin Glargi ne-Yfgn Active 24 UNIT SC TWICE A DAY August 02, 2022 12:35pm Start: 07-31-2022 End: 08-02-2022 Start: 07-31-2022 End: 08-02-2022 Insulin Glargine-Yfgn 100 [...] 31, 2022 10:16pm Start: 07-24-2022 End: 07-31-2022 Start: 07-24-2022 End: 07-31-2022 Insulin Glargine-Yfgn 100 un it/mL (3 mL) Insulin Pen Discontinued 50 U SC AT BEDTIME 15 July 24, 2022 1:00am July 31, 2022 [...] 3 03/31/2022 Active Start: 03-11-2016 End: 04-21-2016 Start: 03-11-2016 End: 04-21-2016 Insulin Aspart U-100 (Novolo g Flexpen U-100 Insulin) 100 UNITS/ML Flexpen Discontinued 9 U SC THREE TIMES DAILY BEFORE MEALS March 11, 2016 12:00am April 21, 2016 11:08pm Start: 03-01-2012 take 10 [IU] by subc utaneous injection three times daily NOVOLOG 100 UNIT/ML SOLN 10 units sq three times a day INSULIN ASPART [id number] Bettina Vaca RN Comment on above: INJECT 3 TO 10 UNITS SUBCUTANEOUSLY BEFORE MEALS DAILY or as directed Inject 3-10 Units kidd bcutaneously three times daily before meals. As directed Inject 3-10 Units kidd bcutaneously three times a day before meals. As directed metoprolol tartrate 50 mg or al tablet (20 sources) beta-Adrenergic Ariella Start: 10-01-2023 Start: 10-01-2023 take 25 mg by mouth [...] 3 06/11/2024 Active Start: 02-12-2021 End: 07-17-2022 Start: 01-22-2021 End: 02-12-2021 Metoprolol Tartrate 50 [...] tab in the pm; Start: 01-19-2019 End: 02-12-2021 Start: 01-19-2019 End: 12-03-2019 take 1 tablet [...] 24, 2017 1:05pm Start: 12-16-2016 End: 11-24-2017 Start: 03-06-2016 End: 11-24-2017 Start: 03-06-2016 End: 03-11-2016 Start: 03-06-2016 End: 03-11-2016 take 1 tablet [...] topical cream (20 sources) Corticosteroid Start: 06-13-2024 Start: 01-17-2023 End: 10-15-2024 mometasone (ELOCON) 0.1 [...] 06/11/2024 06/16/2024 Active omeprazole 20 mg delayed rel ease oral tablet (20 sources) Proton Pump Inhibitor Start: 06-22-2022 Start: 12-23-2021 End: 02-15-2022 take 1 tablet by mouth twice daily before mealtime Omeprazole Magnesium (PRILOSEC OTC) 20 mg tablet Take 1 tablet by mouth twice daily. 1/2 hr before meal. 0 12/23/2021 02/15/2022 Discontinued Start: 03-06-2016 End: 06-22-2022 Start: 03-06-2016 End: 12-03-2019 take 1 capsule by mouth twice daily Omeprazole 20 MG capsule Discontinued 20 mg PO TWICE A DAY January 19, 2019 8:14pm December 03, 2019 2:19pm Start: 10-12-2013 take 1 tablet by julito twice daily PRILOSEC OTC 20 MG TBEC One tablet by mouth twice daily OMEPRAZOLE MAGNESIUM [id number] Areli Estevez PA-C Start: 07-09-2013 End: 07-09-2013 Prilosec Discontinued [facility] er 2012 12:00am July 09, 2013 10:44am Start: 07-09-2013 End: 07-09-2013 Prilosec Discontinued [facility] er 2012 1:00am July 09, 2013 11:44am Start: 03-23-2013 PRILOSEC OTC 2 0 MG TBEC .12 OMEPRAZOLE MAGNESIUM [id number] Chris Lott MD Start: 03-01-2012 End: 11-15-2012 take 1 tablet by mouth twice daily OMEPRAZOLE 20 MG CPDR One tablet by mouth twice daily OMEPRAZOLE [id number] Karina Villarreal RN Comment on above: Take 1 capsule by mo ut once daily. Take 1 tablet by julito twice daily. 1/2 hr before meal. QUEtiapine 25 mg oral tablet (1 source) Atypical Antipsychotic Start: 3 take 12.5 mg by mouth at bedtime Quetiapine Active 12.5 MG PO AT BEDTIME 0 July 22, 2022 12:00am ramipril 10 mg oral capsule (20 sources) Angiotensin Converting Enzyme Inhibitor Start: End: take 1 capsule by mouth twice daily ramipril (ALTACE) 10 mg capsule Indications: Essential hypertension Take 1 capsule by mouth two times a day. 180 capsule 3 06/11/2024 Active Start: 03-01-2012 take 1 tablet by julito twice daily ALTACE 10 MG CAPS One tablet by mouth twice daily RAMIPRIL [id number] Karina Villarreal RN Comment on above: Take 1 capsule by mo [facility] twice daily. Take 1 capsule by mo [facility] two times a day. zolpidem tartrate 5 mg oral tablet (20 sources) gamma-Aminobutyric Acid-ergic Agonist Start: 10-25-2024 End: 04-15-2025 zolpidem (AMBIEN) 5 mg tablet Indications: Primary insomnia Take 1 tablet by mouth at bedtime as needed for up to 90 days. Needs larger pill dispensed to cut in half. 30 tablet 2 01/15/2025 04/15/2025 Active Start: 07-09-2024 End: 10-15-2024 take 0.5-1 [...] 30 tablet 2 02/13/2024 06/11/2024 Discontinued Start: 02-11-2022 take 2.5 mg by mouth [...] 2 06/05/2022 10/05/2022 Discontinued Start: 07-21-2021 End: 01-03-2023 take 2.5-5 mg by mouth every twenty-four hours as needed zolpidem (AMBIEN) 5 mg tablet Take 0.5-1 tablets by mouth at bedtime as needed for up to 90 days. 30 tablet 2 10/05/2022 Active Start: 01-19-2019 End: 01-22-2021 take 2.5 mg [...] January 22, 2021 11:03am Start: 10-12-2013 End: 01-22-2021 Start: 10-12-2013 AMBIEN 10 MG T ABS as needed ZOLPIDEM TARTRATE [id number] Areli Estevez PA-C Comment on above: Take [...] tablet (20 sources) Start: 08-02-2022 End: 06-13-2024 Start: 08-02-2022 take 2 tablets by mo uth every six hours as needed Acetaminophen (Tylenol) 325 mg Tablet Active 650 MG PO EVERY 6 HOURS NEEDED 0 August 02, 2022 1:00am Start: 03-11-2016 End: 04-21-2016 Start: 03-11-2016 End: 04-21-2016 Acetaminophen (Tylenol) 325 [...] 21, 2016 11:06pm acetaminophen 325 mg / oxyCO DONE hydrochloride 5 mg oral tablet (20 sources) Opioid Agonist Start: 03-11-2016 End: 04-21-2016 Start: 03-11-2016 End: 04-21-2016 Oxycodone-Acetaminophen 1 TA BLET tablet Discontinued 1 - 2 {tbl} PO EVERY 4 HOURS NEEDED as needed for Severe Pain (6-10/10) March 11, 2016 12:00am April 21, 2016 11:08pm Start: 03-11-2016 End: 04-21-2016 take 1 tablet by mouth every four hours as needed Oxycodone-Acetaminophen Discontinued 1 - 2 TABLET PO EVERY 4 HOURS NEEDED March 11, 2016 12:00am April 21, 2016 11:08pm amoxicillin 875 mg / clavula maryann 125 mg oral tablet (20 sources) Penicillin-class Antibacterial Start: 08-02-2022 End: 11-22-2022 Start: 08-02-2022 End: 11-22-2022 Amoxicillin-Pot Clavulanate 875-125 mg tablet Discontinued 1 {tbl} PO TWICE A DAY August 02, 2022 1:00am November 22, 2022 12:59pm Start: 08-02-2022 End: 11-22-2022 take 1 tablet by mouth twice daily Amoxicillin-Pot Clavulanate Discontinued 1 TABLET PO TWICE A DAY August 02, 2022 1:00am November 22, 2022 12:59pm Comment on above: Take 1 tablet by julito twice daily for 10 days. apixaban 5 mg oral tablet (5 sources) Factor Xa Inhibitor Start: 11-20-19 End: 11-23-19 take 1 tablet by mouth twice daily ELIQUIS 5 MG TABS One tablet by mouth twice daily APIXABAN [id number] Bettina Vaca RN cefdinir 300 mg oral capsule (20 sources) Cephalosporin Antibacterial Start: 07-24-19 End: 08-02-19 cephalexin 500 mg oral capsule (2 sources) Cephalosporin Antibacterial Start: 09-28-19 End: 10-05-19 take 1 capsule by mouth four times daily cephALEXin (KEFLEX) 500 mg capsule Take 1 capsule by mouth four times daily for 7 days. 28 capsule 0 09/27/2022 09/30/2022 Discontinued Comment on above: Take 1 capsule by mo [facility] four times daily for 7 days. COMPOUNDED [...] BiPAP Bi-PAP nose pads. 24 hr dilTIAZem hydrochlorid e 180 mg extended release oral capsule (20 sources) Calcium Channel Ariella Start: 03-06-2016 End: 02-12-2021 Start: 03-06-2016 End: 01-22-2021 take 1 capsule by mouth twice daily Diltiazem Hcl 180 MG capsule Discontinued 180 mg PO TWICE A DAY March 06, 2016 12:00am January 22, 2021 11:43am Start: 03-01-2012 take 1 tablet by julito th twice daily CARDIZEM CD 180 MG [id number] One tablet by mouth twice daily DILTIAZEM HCL COATED BEADS [id number] Karina Villarreal RN docusate sodium 100 mg oral capsule (20 sources) Start: 01-22-2021 End: 06-22-2021 Start: 03-11-2016 End: 04-21-2016 doxycycline monohydrate 100 mg oral capsule (20 sources) Tetracycline-class Drug Start: 10-11-2022 End: 11-22-2022 Start: 08-28-2013 End: 11-24-2013 ergocalciferol 1.25 mg oral capsule (20 sources) Provitamin D2 Compound Start: 01-19-2019 End: 12-03-2019 Ergocalciferol (Vitamin D2) 50,000 UNIT capsule Discontinued 05081 U PO SA January 19, 2019 8:14pm December 03, 2019 2:13pm Start: 04-21-2016 End: 12-03-2019 Start: 11-15-2012 take 1 tablet by julito th once daily VITAMIN D (ERGOCALCIFEROL) 09414 UNIT CAPS One tablet by mouth daily ERGOCALCIFEROL [id number] Chris Lott MD esomeprazole 40 mg injection (6 sources) Proton Pump Inhibitor Start: 11-15-2012 End: 03-23-2013 take 1 tablet by mouth once daily NEXIUM 40 MG CPDR One tablet by mouth daily ESOMEPRAZOLE MAGNESIUM [id number] Chris Lott MD 72 hr fentaNYL 0.025 mg/hr transdermal system (20 sources) Opioid Agonist Start: 03-11-2016 End: 04-21-2016 Start: 03-11-2016 End: 04-21-2016 Fentanyl 25 MCG patch Discon tinued 25 ug TRANSDERM. Every 3 Days March 11, 2016 12:00am April 21, 2016 [...] nasal spray Indications: Post-nasal drip Use 1 [place] in each nostril once daily. 1 Each 3 07/02/2021 12/23/2021 Discontinued Comment on above: Use 1 [place] in each nostril once daily. fluticasone / [...] 5 02/20/2024 Active Start: 12-03-2019 End: 01-22-2021 Start: 12-03-2019 End: 01-22-2021 Fluticasone Propion-Salmeter ol [...] 22, 2021 11:03am Start: 01-19-2019 End: 12-03-2019 Start: 01-19-2019 End: 12-03-2019 take 1 dose [...] Nonsteroidal Anti-inflammatory Drug Start: 01-22-2021 End: 06-22-2021 Start: 09-21-2013 take 200-400 mg by m [...] sources) Insulin Analogue Start: 03-11-2016 End: 04-21-2016 Start: 03-11-2016 End: 04-21-2016 Insulin Detemir U-100 [...] 15 units sq twice daily INSULIN DETEMIR [id number] Bettina Vaca RN Insulin Glargine-Yfgn (1 source) Start: 08-02-2022 End: 11-28-2023 Insulin Glargine-Yfgn Discontinued 24 UNIT SC TWICE A DAY August 02, 2022 1:35pm November 28, 2023 9:37pm Insulin Glargine-Yfgn 100 unit/mL (3 mL) insulin pen (9 sources) Start: 08-02-2022 End: 11-28-2023 Insulin Glargine-Yfgn [...] suspension (20 sources) Start: 11-07-2023 End: 11-28-2023 Start: 11-07-2023 End: 11-28-2023 Insulin Nph Isoph [...] 2021 12:00am August 02, 2022 1:34pm Start: 09-01-2020 End: 01-22-2021 Insulin Nph Isoph U-100 Susan n 100 unit/mL suspension Discontinued 12 U SC DAILY September 01, 2020 2:06pm January 22, 2021 10:59am Start: 01-19-2019 End: 08-02-2022 Start: 03-06-2016 End: 03-11-2016 Start: 03-06-2016 End: 03-11-2016 inject 15 [IU] [...] sources) Insulin Analogue Start: 08-02-2022 End: 11-28-2023 Start: 08-02-2022 End: 11-28-2023 Insulin Lispro (Humalog [...] for Protocol details. Start: 01-22-2021 End: 06-22-2022 Start: 01-22-2021 End: 06-22-2022 Insulin Lispro Discontinued [...] (Not on Formulary) Start: 12-16-2016 End: 01-22-2021 Start: 12-16-2016 End: 01-22-2021 Insulin Lispro 100 UNIT/ML cartridge Discontinued 6 U SC THREE TIMES A DAY December 16, 2016 12:00am January 22, 2021 10:58am Start: 03-06-2016 End: 03-11-2016 Start: 03-01-2012 HUMALOG 100 UN IT/ML SOLN as directed INSULIN LISPRO (HUMAN) [id number] Chris Lott MD Start: 03-01-2012 HUMALOG 100 UN IT/ML SOLN Take as directed INSULIN LISPRO (HUMAN) [id number] Karina Villarreal RN Start: 03-01-2012 End: 07-21-2015 HUMALOG 100 UNIT/ML KAREN Das bryanna as directed INSULIN LISPRO (HUMAN) [id number] Chris Lott MD Comment on above: INJECT [...] on above: Take 1 capsule by mo [facility] once daily. Lactobacillus acidophilus (20 sources) Start: 01-22-2021 End: 06-22-2021 Lactobacillus Acidophilus Discontinued [id number] MMU CELLS PO DAILY January 21, 2021 11:00pm June 22, 2021 11:26am Start: 01-22-2021 End: 06-22-2021 Lactobacillus Acidophilus Di scontinued 16667 MMU CELLS PO DAILY January 22, 2021 12:00am June 22, 2021 12:26pm Lactobacillus Acidophilus 10 billion cell capsule (9 sources) Start: 01-22-2021 End: 06-22-2021 Lactobacillus Acidophilus 10 billion cell capsule Discontinued 12331 NMA PO DAILY January 22, 2021 12:00am June 22, 2021 12:26pm Start: 01-22-2021 End: 06-22-2021 Lactobacillus Acidophilus 10 billion cell capsule Discontinued 66287 NMA PO DAILY January 21, 2021 11:00pm [...] on above: Take 1 tablet by julito once daily. for pain. Take with food. nitrofurantoin 100 mg oral tablet (9 sources) Nitrofuran Antibacterial Start: 06-13-2024 End: 11-15-2024 take 1 capsule by mouth twice daily at mealtime Nitrofurantoin 100 mg capsule Discontinued 100 mg PO TWICE A DAY June 13, 2024 1:00am November 15, 2024 8:33am must administer with a meal/food INSULIN ISOPHANE HUMAN SUSP (3 sources) Start: 03-01-2012 HUMULIN N SUSP take as directed INSULIN ISOPHANE HUMAN SUSP [id number] Karina Villarreal RN Nut.Tx.Gluc Intol,Lf,Soy-Fiber (Glucerna 1.2 Will) 0.06-1.2 gram-kcal/mL Liquid (20 sources) Start: 08-02-2022 End: 11-22-2022 take 1 mL by mouth three times daily at mealtime Nut.Tx.Gluc Intol,Lf,Soy-Fiber (Glucerna 1.2 Will) 0.06-1.2 gram-kcal/mL Liquid Discontinued 120 mL PO 3 TIMES DAILY WITH MEALS 0 August 02, 2022 1:00am November 22, 2022 [...] WITH MEALS 0 August 02, 2022 12:00am November 22, 2022 11:59am Start: 08-02-2022 End: 11-22-2022 take 1 mL by mouth three times daily at mealtime Nut.Tx.Gluc Intol,Lf,Soy-Fiber (Glucerna 1.2 Will) 0.06-1.2 gram-kcal/mL Liquid Discontinued 120 ML PO 3 TIMES DAILY WITH MEALS 0 August 02, 2022 1:00am November 22, 2022 12:59pm Start: 08-02-2022 take 1 mL by mouth t hree times daily at mealtime Nut.Tx.Gluc Intol,Lf,Soy-Fiber (Glucerna 1.2 Will) 0.06-1.2 gram-kcal/mL Liquid Active 120 ML PO 3 TIMES DAILY WITH MEALS August 02, 2022 1:00am Start: 08-02-2022 take 1 mL by mouth t hree times daily at mealtime Nut.Tx.Gluc Intol,Lf,Soy-Fiber (Glucerna 1.2 Will) 0.06-1.2 gram-kcal/mL Liquid Active 120 ML PO 3 TIMES DAILY WITH MEALS 0 August 02, 2022 12:00am nystatin 309330 unt/ml oral suspension (15 sources) Polyene Antifungal [...] Serotonin-3 Receptor Antagonist Start: 12-16-2016 End: 11-24-2017 POLYSACCHARIDE IRON COMPLEX (5 sources) Start: 11-19-2016 End: 11-22-2016 take 1 tablet by mouth once daily FERREX 150 150 MG CAPS One tablet by mouth daily POLYSACCHARIDE IRON COMPLEX [id number] Chris Lott MD Start: 11-19-2016 take 1 tablet by julito th once daily FERREX 150 150 MG CAPS One tablet by mouth daily POLYSACCHARIDE IRON COMPLEX [id number] Bettina Vaca RN pravastatin sodium 10 mg ora l tablet (20 sources) HMG-CoA Reductase Inhibitor Start: 11-24-2017 End: 11-28-2017 Start: 11-24-2017 End: 11-28-2017 take 5 mg by mouth once daily Pravastatin Discontinued 5 MG PO daily November 24, 2017 12:00am November 28, 2017 1:05pm Start: 11-22-2016 take 0.5 tablet by m outh once daily PRAVASTATIN SODIUM 10 MG TABS 1/2 tablet by mouth daily PRAVASTATIN SODIUM [id number] Chris Lott MD rivaroxaban 10 mg oral table t (20 sources) Factor Xa Inhibitor Start: 03-11-2016 End: 04-21-2016 rosuvastatin calcium 10 mg o ral tablet (20 sources) HMG-CoA Reductase Inhibitor Start: 12-03-2019 End: 09-01-2020 Start: 12-03-2019 End: 09-01-2020 take 5 mg by mouth two times weekly Rosuvastatin Discontinued 5 MG PO TWICE A WEEK December 03, 2019 12:00am September 01, 2020 2:08pm simvastatin 10 mg oral table t (20 sources) HMG-CoA Reductase Inhibitor Start: 01-22-2021 End: 06-22-2021 Start: 01-22-2021 End: 06-22-2021 take 2.5 mg by mouth two times weekly Simvastatin Discontinued 2.5 MG PO TWICE A WEEK January 22, 2021 12:00am June 22, 2021 12:28pm Start: 03-06-2016 End: 11-24-2017 Start: 03-06-2016 End: 11-24-2017 take 1 tablet by mouth at bedtime Simvastatin 5 MG tablet Discontinued 5 mg PO AT BEDTIME March 06, 2016 12:00am November 24, 2017 1:02pm Start: 03-01-2012 take 0.5 tablet by m outh at bedtime SIMVASTATIN 10 MG TABS 1/2 tablet (5 mg ) by mouth at bedtime (STOP) SIMVASTATIN [id number] Chris Lott MD Start: 03-01-2012 take 1 tablet by julito th at bedtime ZOCOR 10 MG TABS One tablet by mouth at bedtime. SIMVASTATIN [id number] Karina Villarreal RN sulfamethoxazole 800 mg / trimethoprim 160 mg oral tablet (10 sources) Dihydrofolate Reductase Inhibitor Antibacterial, Sulfonamide Antimicrobial Start: 06-08-2024 End: 06-13-2024 Start: 06-08-2024 End: 06-13-2024 Sulfamethoxazole-Trimethopri m (Bactrim Ds) 800-160 mg tablet Discontinued 1 {tbl} PO TWICE A DAY 13 7 June 08, 2024 1:00am June 13, 2024 3:14pm traMADol hydrochloride 50 mg oral tablet (5 sources) Opioid Agonist Start: 11-19-2016 End: 11-22-2016 take 1 tablet by mouth every six hours as needed TRAMADOL HCL 50 MG TABS One tablet by mouth q 6 hours as needed TRAMADOL HCL [id number] Bettina Vaca RN (6 sources) Start: 06-13-2024 End: 11-15-2024 Start: 02-06-2024 Start: 08-02-2022 End: 11-28-2023 Start: 08-02-2022 End: 11-22-2022 Start: 01-22-2021 End: 06-22-2021 Start: 07-09-2013 End: 07-09-2013 Problems Active Problems Problem Classification Problem Date [...] source) Anemia; Translations: [Anemia, unspecified] 09-26-2024 Episodic Diabetes mellitus with complications (20 sources) [...] unspecified] Onset: 2 Resolved: 7 11-19-2016 Chronic Immunizations and screening for infectious disease (1 source) Encounter for immunization; Translations: [Encounter for immunization] Onset: 5 Episodic Inflammatory diseases of female pelvic organs (20 sources) Cellulitis; Translations: [Abscess of vulva] Episodic Miscellaneous mental health disorders (6 sources) Primary insomnia; Translations: [Primary insomnia] Onset: 7 09-21-2023 Chronic Mood disorders (20 sources) Depressive disorder; Translations: [Other specified depressive episodes] Onset: 3 12-16-2005 Chronic Noninfectious gastroenteritis (10 sources) Enteritis of small intestine; Translations: [Noninfective gastroenteritis and colitis, unspecified] 09-20-2024 Episodic Nonspecific chest pain (20 sources) Chest [...] circulatory system] 02-19-2022 Episodic Other circulatory disease (18 sources) History of cardiac arrhythmia; Translations: [Personal [...] Onset: 4 Episodic Other connective tissue disease (7 sources) Trochanteric bursitis; Translations: [Trochanteric bursitis, unspecified hip] 10-19-2024 Episodic Other connective tissue disease (7 sources) Thigh pain; Translations: [Pain in left [...] [Diarrhea, unspecified] 09-26-2024 Episodic Other gastrointestinal disorders (18 sources) Diarrhea; Translations: [Diarrhea, unspecified] 09-20-2024 Episodic Other gastrointestinal disorders (1 source) Constipation; Translations: [Constipation, unspecified] 10-15-2024 Episodic Other hematologic conditions (1 source) ESR [...] injuries and conditions due to external causes (6 sources) Contusion; Translations: [Other injury of unspecified body region, initial encounter] 10-24-2024 Episodic Other lower respiratory disease (4 sources) Dyspnea; Translations: [Shortness of breath] Onset: 2 03-01-2012 Episodic Other lower respiratory disease (20 sources) Hypoxia; Translations: [Hypoxemia] 07-10-2022 Episodic Other lower respiratory disease (11 sources) Hypoxemia; Translations: [Hypoxemia] Episodic Other lower respiratory disease (1 source) Hypoxemia; Translations: [Hypoxemia] Episodic Other lower respiratory disease (20 sources) Dyspnea on exertion; Translations: [Other forms of dyspnea] 11-22-2022 Episodic Other lower respiratory disease (2 sources) Cough; Translations: [Acute cough] 04-18-2024 Episodic Other nervous system disorders (3 sources) Tjfkzho-Zwpll-Cylmr disease; Translations: [Hereditary motor and sensory neuropathy] [...] Chronic Other nutritional; endocrine; and metabolic disorders (3 sources) Severe obesity; Translations: [Morbid (severe) obesity [...] disorders (1 source) Body mass index (BMI) 40.0-44.9, adult; Translations: [Class 3 severe obesity due to excess calories with body mass index (BMI) of 40.0 to 44.9 in adult, unspecified whether serious comorbidity present (HCC)] Onset: Chronic Other nutritional; endocrine; and metabolic disorders (16 sources) H/O: diabetes mellitus; Translations: [Personal history of other endocrine, nutritional and metabolic disease] 12-15-2023 Episodic Other nutritional; endocrine; and metabolic disorders (8 sources) History of diabetes mellitus type 2; Translations: [Personal history of other endocrine, nutritional and metabolic disease] 09-23-2024 Episodic Other screening for suspected conditions (not mental disorders or infectious disease) (20 sources) Patient encounter status; Translations: [Encounter for screening for malignant neoplasm of colon] Onset: Episodic Other skin disorders (1 source) Finding of neck region; Translations: [Localized swelling, mass and lump, neck] 01-02-2024 Episodic Other skin disorders (1 source) Cutaneous horn; Translations: [Other specified epidermal thickening] 01-02-2024 Episodic Pneumonia (except that caused by tuberculosis or sexually transmitted disease) (20 sources) Bilateral pneumonia; Translations: [Pneumonia, unspecified organism] Episodic Poisoning by nonmedicinal substances (20 sources) Ingestion of foreign material; Translations: [Toxic [...] specified conditions] 02-21-2023 Episodic Superficial injury; contusion (6 sources) Contusion of left thigh; Translations: [Contusion of left thigh, initial encounter] Onset: 5 11-03-2024 Episodic Unclassified (1 source) Class 3 severe obesity due to excess calories with body mass index (BMI) of 40.0 to 44.9 in adult, unspecified whether serious comorbidity present (HCC); Translations: [Class 3 severe obesity due to excess calories with body mass index (BMI) of 40.0 to 44.9 in adult, unspecified whether serious comorbidity present (HCC)] Onset: 5 Unclassified (1 source) Acute cough; Translations: [Acute cough] Onset: 4 Viral infection (9 sources) COVID-19; Translations: [Pneumonia due to other virus not elsewhere classified] Episodic Past or Other Problems Problem Classification Problem Date Documented Date Episodic/Chronic Cardiac dysrhythmias (20 sources) Palpitations; Translations: [Palpitations] Onset: 05-16-20 Episodic Conditions associated with dizziness or vertigo (11 sources) Lightheadedness; Translations: [Dizziness and giddiness] Onset: 07-03-20 24 12-15-2023 Episodic Deficiency and other anemia (1 source) Anemia, unspecified; Translations: [Anemia, unspecified type] Onset: 10-02-19 Episodic E Codes: Adverse effects of medical drugs (20 sources) HMG COA reductase inhibitor adverse reaction; Translations: [Adverse effect of antihyperlipidemic and antiarteriosclerotic drugs, initial encounter] Onset: 06-07-20 22 06-07-2022 Episodic Malaise and fatigue (20 sources) Asthenia; Translations: [Other malaise] Onset: 10-01-1909-30-2009 Episodic Other gastrointestinal disorders (1 source) Diarrhea, unspecified; Translations: [Diarrhea, unspecified] Onset: 10-05-19 Episodic Other lower respiratory disease (3 sources) Other forms of dyspnea; Translations: [Other respiratory abnormalities] Onset: 07-03-2011-22-2022 Episodic Other lower respiratory disease (2 sources) Shortness of breath; Translations: [Shortness of breath] Onset: 06-07-20 Episodic Other nutritional; endocrine; and metabolic disorders (20 sources) Obesity; Translations: [Obesity, unspecified] Resolved : 05-11-2005-11-2021 Chronic Other upper respiratory infections (18 sources) Acute upper respiratory infection; Translations: [Acute upper respiratory infection, unspecified] Onset: 04-18-2010-01-2023 Episodic Phlebitis; thrombophlebitis and thromboembolism (3 sources) [...] Resolved : 03-07-20 Episodic Urinary tract infections (13 sources) Acute cystitis; Translations: [Acute cystitis without hematuria] Onset: 06-28-20 24 06-11-2024 Episodic Results Test Name Value Interpretation Reference Range Facility CNOVon 01-15-2025 CNOV Normal [facility] Cardiology Visit Reporton Cardiology Visit Report Normal [facility] 25(OH)D3 SerPl-mCncon 2024 25-hydroxyvitamin D3 [Mass/Vol] 75.3 ng/mL Normal 31.0-80.0 [facility] Comment on above: Order Comment: Ruma deluna Type: BLOOD SPECIMENOrdering Facility: [facility] Address: [address] [place] [address] Performed By: #### 1 [id number] ####[facility] [id number] [place] [id number] [place] HbA1c (Bld)on 01-08-2025 Average glucose Estimated from glycated hemoglobin (Bld) [Mass/Vol] 151 mg/dL Normal [facility] Comment on above: Order Comment: Ruma deluna Type: BLOOD SPECIMENOrdering Facility: [facility] Address: [address] [place] [address] Result Comment: eAG: (Estimated average glucose) is a calculated value from HgbA1c and is business process representative of the average blood glucose level in the last 2-3 month period. Performed By: #### 5 [id number] ####[facility] [id number] [place] [address] [place] HbA1c (Bld) [Mass fraction] 6.9 % High 4.3-5.6 [facility] Comment on above: Order Comment: Ruma deluna Type: BLOOD SPECIMENOrdering Facility: [facility] Address: [address] [place] [address] Result Comment: [place] [employer] guidelines indicate that patients with HgbA1c in the range 5.7-6.4% are at increased risk for development of diabetes, and intervention by lifestyle modification may be beneficial. HgbA1c greater or equal to 6.5% is considered diagnostic of diabetes. Performed By: #### 5 [id number] ####[facility] [id number] [place] [id number] [place] 12 Lead EKGon 01-04-2025 12 Lead EKG Normal [facility] Absolute lymphocyte countOrd ered By: Amber Martino on 01-04-2025 Lymphocytes Auto (Unsp spec) [#/Vol] 1.40 10*3/uL 0.83-4.51 [facility] Absolute neutrophil countOrd ered By: Ambergm Martino on 01-04-2025 Neutrophils (Bld) [#/Vol] 3.9 10*3/uL 2.0-7.7 [facility] Anion gap in Serum or Plasma Ordered By: Amber Martino on 01-04-2025 Anion gap [Moles/Vol] 11 mmol/L 5-15 [facility] Automated lymphocyte count a s percentage of total leukocytesOrdered By: Amber Martino on 01-04-2025 Lymphocytes/100 WBC Auto (Unsp spec) 22.3 % - [facility] BUN/creatinine ratioOrdered By: Abmer Martino on 01-04-2025 Urea nitrogen/Creatinine [Mass ratio] 24.4 mg/mg High 05-06 [facility] Basic Metabolic Profile (BMP )on 01-04-2025 BUN/CRE 24.4 RATIO High [facility] Comment on above: Performed By: #### L 100.0100, L500.2500, L501.4021 ####[facility] [address] [place], [address] Calcium [Mass/Vol] 9.2 mg/dL Normal 7.6-11.[address] [facility] Comment on above: Performed By: #### L 100.0100, L500.2500, L501.4021 ####[facility] [address] [place], [address] Chloride [Moles/Vol] 103 mmol/L Normal 98-108 [facility] Comment on above: Performed By: #### L 100.0100, L500.2500, L501.4021 ####[facility] [address] [place], [address] CO2 [Moles/Vol] 25.6 mmol/L Normal 21.0-32.0 [facility] Comment on above: Performed By: #### L 100.0100, L500.2500, L501.4021 ####[facility] [address] [place], [address] Creatinine [Mass/Vol] 0.93 mg/dL Normal 0.70-1.20 [facility] Comment on above: Performed By: #### L 100.0100, L500.2500, L501.4021 ####[facility] [address] [place], [address] GAP 11 Normal 5-15 [facility] Comment on above: Performed By: #### L 100.0100, L500.2500, L501.4021 ####[facility] [address] [place], [address] GFR/1.73 sq M.predicted among non-blacks MDRD (S/P/Bld) [Vol rate/Area] 63 mL/min/{1.73_m2} Normal >60 [facility] Comment on above: Result Comment: mL/m in/1.73m2 CKD-EPI Creatinine Equation (2020) Performed By: #### L 100.0100, L500.2500, L501.4021 ####[facility] [address] [place], [address] Glucose [Mass/Vol] 93 mg/dL Normal 70-[address] [facility] Comment on above: Performed By: #### L 100.0100, L500.2500, L501.4021 ####[facility] [address] [place], [address] Potassium [Moles/Vol] 4.0 mmol/L Normal 3.3-5.1 [facility] Comment on above: Performed By: #### L 100.0100, L500.2500, L501.4021 ####[facility] [address] [place], [address] Sodium [Moles/Vol] 140 mmol/L Normal 133-[address] [facility] Comment on above: Performed By: #### L 100.0100, L500.2500, L501.4021 ####[facility] [address] [place], [address] Urea nitrogen [Mass/Vol] 23 mg/dL High 4-19 [facility] Comment on above: Performed By: #### L 100.0100, L500.2500, L501.4021 ####[facility] [address] [place], [address] Basophil percentageOrdered B y: Amber Martino on 01-04-2025 Basophils/100 WBC (Bld) 0.5 % 0-1 [facility] Bedside Glucoseon 01-04-2025 FINGERSTICK GLU 114 mg/dL High 74-106 [facility] Comment on above: Result Comment: MERCEDES SUBRAMANIAN OF PATIENT CARE PER NURSING PROTOCOL Performed By: #### L 501.080 ####[facility] [address] [place], [address] CBC W/Diff, Automatedon 12-17 0 Absolute Lymph 1.40 X10 3/uL Normal 0.83-4.51 [facility] Comment on above: Performed By: #### L 100.0100, L500.2500, L501.4021 ####[facility] [address] [place], [address] Absolute Neut 3.9 X10 3/uL Normal 2.0-7.7 [facility] Comment on above: Performed By: #### L 100.0100, L500.2500, L501.4021 ####[facility] [address] [place], [address] Basophils/100 WBC (Bld) 0.5 % Normal 0-1 [facility] Comment on above: Performed By: #### L 100.0100, L500.2500, L501.4021 ####[facility] [address] [place], [address] Eosinophils/100 WBC (Bld) 5.7 % High 0-5 [facility] Comment on above: Performed By: #### L 100.0100, L500.2500, L501.4021 ####[facility] [address] [place], [address] Erythrocyte distribution width (RBC) [Ratio] 12.3 % Normal 11.6-14.6 [facility] Comment on above: Performed By: #### L 100.0100, L500.2500, L501.4021 ####[facility] [address] [place], [address] Hematocrit (Bld) [Volume fraction] 36.1 % Low 37-47 [facility] Comment on above: Performed By: #### L 100.0100, L500.2500, L501.4021 ####[facility] [address] [place], [address] Hemoglobin (Bld) [Mass/Vol] 12.1 g/dL Normal 12.0-15.0 [facility] Comment on above: Performed By: #### L 100.0100, L500.2500, L501.4021 ####[facility] [address] [place], [address] IG% 0.200 Normal 0.0-0.9 [facility] Comment on above: Result Comment: IG% - Immature Granulocytes (promyelocytes, myelocytes andmetamyelocytes) > 1% indicates that a LEFT SHIFT is Present. Performed By: #### L 100.0100, L500.2500, L501.4021 ####[facility] [address] [place], [address] Lymphocytes/100 WBC (Bld) 22.3 % Normal 19-41 [facility] Comment on above: Performed By: #### L 100.0100, L500.2500, L501.4021 ####[facility] [address] [place], [address] MCH (RBC) [Entitic mass] 29.7 pg Normal 27.0-32.0 [facility] Comment on above: Performed By: #### L 100.0100, L500.2500, L501.4021 ####[facility] [address] [place], [address] MCHC (RBC) [Mass/Vol] 33.5 g/dL Normal 32-36 [facility] Comment on above: Performed By: #### L 100.0100, L500.2500, L501.4021 ####[facility] [address] [place], [address] MCV (RBC) [Entitic vol] 88.7 fL Normal 81-99 [facility] Comment on above: Performed By: #### L 100.0100, L500.2500, L501.4021 ####[facility] [address] [place], [address] Monocytes/100 WBC (Bld) 9.7 % Normal 0-10 [facility] Comment on above: Performed By: #### L 100.0100, L500.2500, L501.4021 ####[facility] [address] [place], [address] Neutrophils/100 WBC (Bld) 61.6 % Normal 47-70 [facility] Comment on above: Performed By: #### L 100.0100, L500.2500, L501.4021 ####[facility] [address] [place], [address] Nucleated RBC (Bld) [#/Vol] 0 10*3/uL Normal 0-5 [facility] Comment on above: Performed By: #### L 100.0100, L500.2500, L501.4021 ####[facility] [address] [place], [address] Platelet mean volume (Bld) [Entitic vol] 12.2 fL High 6.2-12.0 [facility] Comment on above: Performed By: #### L 100.0100, L500.2500, L501.4021 ####[facility] [address] [place], [address] Platelets (Bld) [#/Vol] 193 10*3/uL Normal 150-450 [facility] Comment on above: Performed By: #### L 100.0100, L500.2500, L501.4021 ####[facility] [address] [place], [address] RBC (Bld) [#/Vol] 4.07 10*6/uL Low 4.2-5.4 [facility] Comment on above: Performed By: #### L 100.0100, L500.2500, L501.4021 ####[facility] [address] [place], [address] RDW SD 40.1 fl Normal 35.1-43.9 [facility] Comment on above: Performed By: #### L 100.0100, L500.2500, L501.4021 ####[facility] [address] [place], [address] WBC (Bld) [#/Vol] 6.3 10*3/uL Normal 4.4-11.[address] [facility] Comment on above: Performed By: #### L 100.0100, L500.2500, L501.4021 ####[facility] [address] [place], [address] Carbon dioxide, total [Moles /volume] in Central venous bloodOrdered By: Amber Martino on 01-04-2025 CO2 [Moles/Vol] 25.6 mmol/L 21.0-32.0 [facility] Chest PA and Lateralon 01-04 Chest PA and Lateral Normal [facility] Chloride assayOrdered By: Daniel Martino on 01-04-2025 Chloride [Moles/Vol] 103 mmol/L 98-108 [facility] Emergency Department Summary on 01-04-2025 Emergency Department Summary Normal [facility] Eosinophil percentageOrdered By: Amber Martino on 01-04-2025 Eosinophils/100 WBC (Bld) 5.7 % High 0-5 [facility] Erythrocyte distribution wid th ratioOrdered By: Amber Mratino on 01-04-2025 Erythrocyte distribution width (RBC) [Ratio] 12.3 % 11.6-14.6 [facility] Erythrocyte distribution wid th standard deviationOrdered By: Amber Martino on 01-04-2025 Erythrocyte distribution width (RBC) [Ratio] 40.1 fl 35.1-43.9 [facility] Glomerular filtration rate ( GFR) estimation/1.73 sq m using serum, plasma, or whole bOrdered By: Amber Martino on 01-04-2025 GFR/1.73 sq M.predicted among non-blacks MDRD (S/P/Bld) [Vol rate/Area] 63 mL/min/{1.73_m2} >60 [facility] Comment on above: mL/min/1.73m2 CKD-EP I Creatinine Equation (2020) Glucose measurement at [facility] deOrdered By: Zay Juan on 01-04-2025 Glucose [Mass/Vol] 114 mg/dL High 74-[address] [facility] Hematocrit Auto (Bld) [Volum e fraction]Ordered By: Amber Martino on 01-04-2025 Hematocrit (Bld) [Volume fraction] 36.1 % Low 37-47 [facility] Hemoglobin measurementOrdere d By: Amber Martino on 01-04-2025 Hemoglobin (Bld) [Mass/Vol] 12.1 g/dL 12.0-15.0 [facility] Immature granulocytes/100 WB C Auto (Bld)Ordered By: Amber Martino on 01-04-2025 Immature granulocytes/100 WBC (Bld) 0.200 % 0.0-0.9 [facility] Comment on above: IG% - Immature Granu locytes (promyelocytes, myelocytes and metamyelocytes) > 1% indicates that a LEFT SHIFT is Present. L499.0042on 01-04-2025 Trop T High Sen 13 ng/L Normal <=14 [facility] Comment on above: Performed By: #### L 499.0042 ####[facility] [address] [place], [address] L499.0043on 01-04-2025 Trop T High Sen Normal <=14 [facility] Comment on above: Result Comment: Cansourav flores via OM: MD Ordered Performed By: #### L 499.0043 ####[facility] [address] [place], [address] L501.4021on 01-04-2025 Trop T High Sen 15 ng/L High <=14 [facility] Comment on above: Performed By: #### L 100.0100, L500.2500, L501.4021 ####[facility] [address] [place], [address] MCV (mean corpuscular volume ) determinationOrdered By: Amber Martino on 01-04-2025 MCV (RBC) [Entitic vol] 88.7 fL 81-99 [facility] Mean corpuscular hemoglobin (MCH) determinationOrdered By: Amber Martino on 01-04-2025 MCH (RBC) [Entitic mass] 29.7 pg 27.0-32.0 [facility] Mean corpuscular hemoglobin concentration (MCHC) determinationOrdered By: Amber Martino on 01-04-2025 MCHC (RBC) [Mass/Vol] 33.5 g/dL 32-36 [facility] Mean platelet volume determi nationOrdered By: Amber Martino on 01-04-2025 Platelet mean volume (Bld) [Entitic vol] 12.2 fL High 6.2-12.0 [facility] Monocyte percentageOrdered B y: Amber Martino on 01-04-2025 Monocytes/100 WBC (Bld) 9.7 % 0-10 [facility] Neutrophil percentageOrdered By: Amber Martino on 01-04-2025 Neutrophils/100 WBC (Bld) 61.6 % 47-70 [facility] Nucleated red blood cell per centageOrdered By: Amber Martino on 01-04-2025 Nucleated RBC/100 WBC (Bld) [Ratio] 0 % 0-5 [facility] Platelet countOrdered By: Danile Martino on 01-04-2025 Platelets (Bld) [#/Vol] 193 10*3/uL 150-450 [facility] Potassium measurement (mass/ volume)Ordered By: Amber Martino on 01-04-2025 Potassium (Unsp spec) [Mass/Vol] 4.0 mmol/L 3.3-5.1 [facility] RBC Auto (Bld) [#/Vol]Ordere d By: Amber Martino on 01-04-2025 RBC (Bld) [#/Vol] 4.07 10*6/uL Low 4.2-5.4 [facility] Serum creatinine measurement (mass/volume)Ordered By: Amber Martino on 01-04-2025 Creatinine [Mass/Vol] 0.93 mg/dL 0.70-1.20 [facility] Serum glucose measurement (m ass/volume)Ordered By: Amber Martino on 01-04-2025 Glucose [Mass/Vol] 93 mg/dL 70-[address] [facility] Serum or plasma calcium zora urement (mass/volume)Ordered By: Amber Martino on 01-04-2025 Calcium [Mass/Vol] 9.2 mg/dL 7.6-11.[address] [facility] Serum or plasma urea nitroge n measurement (mass/volume)Ordered By: Amber Martino on 01-04-2025 Urea nitrogen [Mass/Vol] 23 mg/dL High 4-19 [facility] Sodium levelOrdered By: Amber Martino on 01-04-2025 Sodium [Moles/Vol] 140 mmol/L 133-[address] [facility] Troponin T.cardiac [Mass/vol ume] in Serum or Plasma by High sensitivity methodOrdered By: Amber Martino on 01-04-2025 Troponin T.cardiac High sensitivity method [Mass/Vol] 13 ng/L <14 [facility] Troponin T.cardiac High sensitivity method [Mass/Vol] 15 ng/L High <14 [facility] White blood cell (WBC) count Ordered By: Amber Martino on 01-04-2025 WBC (Bld) [#/Vol] 6.3 10*3/uL 4.4-11.[address] [facility] Bedside Glucoseon 12-19-2024 FINGERSTICK GLU 227 mg/dL High 74-106 [facility] Comment on above: Result Comment: MERCEDES SUBRAMANIAN OF PATIENT CARE PER NURSING PROTOCOL Performed By: #### L 501.080 ####[facility] [address] [place], [place], [address] [facility] Emergency Department Summary on 12-19-2024 Emergency Department Summary Normal [facility] Glucose measurement at [facility] deOrdered By: Abdulaziz Stratton on 12-19-2024 Glucose [Mass/Vol] 227 mg/dL High 74-[address] [facility] Comment on above: MANAGEMENT OF PATIEN T CARE PER NURSING PROTOCOL [facility] 12-14-2024 [facility] Normal [facility] 12-12-2024 [facility] Normal [facility] Absolute lymphocyte countOrd ered By: Serg Solis on 11-29-2024 Lymphocytes Auto (Unsp spec) [#/Vol] 1.09 10*3/uL 0.83-4.51 [facility] Absolute neutrophil countOrd ered By: Serg Solis on 11-29-2024 Neutrophils (Bld) [#/Vol] 3.4 10*3/uL 2.0-7.7 [facility] Anion gap in Serum or Plasma Ordered By: Serg Solis on 11-29-2024 Anion gap [Moles/Vol] 11 mmol/L 11-29 [facility] Automated lymphocyte count a s percentage of total leukocytesOrdered By: Serg Solis on 11-29-2024 Lymphocytes/100 WBC Auto (Unsp spec) 20.6 % - [facility] BUN/creatinine ratioOrdered By: Serg Solis on 11-29-2024 Urea nitrogen/Creatinine [Mass ratio] 21.6 mg/mg High 10- [facility] Basophil percentageOrdered B y: Serg Solis on 11-29-2024 Basophils/100 WBC (Bld) 0.8 % 0-1 [facility] Bedside Glucoseon 11-29-2024 FINGERSTICK GLU 265 mg/dL High 74-106 [facility] Comment on above: Result Comment: MERCEDES GEMENT OF PATIENT CARE PER NURSING PROTOCOL Performed By: #### L 501.080 ####[facility] [address] [place], [address] FINGERSTICK GLU 275 mg/dL High 74-106 [facility] Comment on above: Result Comment: MERCEDES GEMENT OF PATIENT CARE PER NURSING PROTOCOL Performed By: #### L 501.080 ####[facility] [address] [place], [address] Beta-Hydroxbytyrateon 2024 BETA-HYDROXYBUT 1.0 mmol/L Normal 0.0-0.3 [facility] Comment on above: Performed By: #### L 100.0100, L500.4050, L501.6901 ####[facility] [address] [place], [address] Beta-hydroxybutyrateOrdered By: Serg Solis on 11-29-2024 Beta hydroxybutyrate [Mass/Vol] 1.0 mmol/L 0.0-0.3 [facility] Bilirubin Test strip Ql (U)O rdered By: Serg Solis on 11-29-2024 Bilirubin Ql (U) Negative Negative [facility] Bilirubin, totalOrdered By: Serg Kimtania on 11-29-2024 Bilirubin [Mass/Vol] 0.72 mg/dL 0.00-1.30 [facility] CBC W/Diff, Automatedon 11-15 Absolute Lymph 1.09 X10 3/uL Normal 0.83-4.51 [facility] Comment on above: Performed By: #### L 100.0100, L500.4050, L501.6901 ####[facility] [address] [place], [address] Absolute Neut 3.4 X10 3/uL Normal 2.0-7.7 [facility] Comment on above: Performed By: #### L 100.0100, L500.4050, L501.6901 ####[facility] [address] [place], [address] Basophils/100 WBC (Bld) 0.8 % Normal 0-1 [facility] Comment on above: Performed By: #### L 100.0100, L500.4050, L501.6901 ####[facility] [address] [place], [address] Eosinophils/100 WBC (Bld) 6.6 % High 0-5 [facility] Comment on above: Performed By: #### L 100.0100, L500.4050, L501.6901 ####[facility] [address] [place], [address] Erythrocyte distribution width (RBC) [Ratio] 12.6 % Normal 11.6-14.6 [facility] Comment on above: Performed By: #### L 100.0100, L500.4050, L501.6901 ####[facility] [address] [place], [address] Hematocrit (Bld) [Volume fraction] 38.2 % Normal 37-47 [facility] Comment on above: Performed By: #### L 100.0100, L500.4050, L501.6901 ####[facility] [address] [place], [address] Hemoglobin (Bld) [Mass/Vol] 12.6 g/dL Normal 12.0-15.0 [facility] Comment on above: Performed By: #### L 100.0100, L500.4050, L501.6901 ####[facility] [address] [place], [address] IG% 0.000 Normal 0.0-0.9 [facility] Comment on above: Result Comment: IG% - Immature Granulocytes (promyelocytes, myelocytes andmetamyelocytes) > 1% indicates that a LEFT SHIFT is Present. Performed By: #### L 100.0100, L500.4050, L501.6901 ####[facility] [address] [place], [address] Lymphocytes/100 WBC (Bld) 20.6 % Normal 19-41 [facility] Comment on above: Performed By: #### L 100.0100, L500.4050, L501.6901 ####[facility] [address] [place], [address] MCH (RBC) [Entitic mass] 30.0 pg Normal 27.0-32.0 [facility] Comment on above: Performed By: #### L 100.0100, L500.4050, L501.6901 ####[facility] [address] [place], [address] MCHC (RBC) [Mass/Vol] 33.0 g/dL Normal 32-36 [facility] Comment on above: Performed By: #### L 100.0100, L500.4050, L501.6901 ####[facility] [address] [place], [address] MCV (RBC) [Entitic vol] 91.0 fL Normal 81-99 [facility] Comment on above: Performed By: #### L 100.0100, L500.4050, L501.6901 ####[facility] [address] [place], [address] Monocytes/100 WBC (Bld) 7.2 % Normal 0-10 [facility] Comment on above: Performed By: #### L 100.0100, L500.4050, L501.6901 ####[facility] [address] [place], [address] Neutrophils/100 WBC (Bld) 64.8 % Normal 47-70 [facility] Comment on above: Performed By: #### L 100.0100, L500.4050, L501.6901 ####[facility] [address] [place], [address] Nucleated RBC (Bld) [#/Vol] 0 10*3/uL Normal 0-5 [facility] Comment on above: Performed By: #### L 100.0100, L500.4050, L501.6901 ####[facility] [address] [place], [address] Platelet mean volume (Bld) [Entitic vol] 12.1 fL High 6.2-12.0 [facility] Comment on above: Performed By: #### L 100.0100, L500.4050, L501.6901 ####[facility] [address] [place], [address] Platelets (Bld) [#/Vol] 153 10*3/uL Normal 150-450 [facility] Comment on above: Performed By: #### L 100.0100, L500.4050, L501.6901 ####[facility] [address] [place], [address] RBC (Bld) [#/Vol] 4.20 10*6/uL Normal 4.2-5.4 [facility] Comment on above: Performed By: #### L 100.0100, L500.4050, L501.6901 ####[facility] [address] [place], [address] RDW SD 41.7 fl Normal 35.1-43.9 [facility] Comment on above: Performed By: #### L 100.0100, L500.4050, L501.6901 ####[facility] [address] [place], [address] WBC (Bld) [#/Vol] 5.3 10*3/uL Normal 4.4-11.[address] [facility] Comment on above: Performed By: #### L 100.0100, L500.4050, L501.6901 ####[facility] [address] [place], [address] Carbon dioxide, total [Moles /volume] in Central venous bloodOrdered By: Serg Solis on 11-29-2024 CO2 [Moles/Vol] 22.8 mmol/L 21.0-32.0 [facility] Chloride assayOrdered By: Abundio Solis on 11-29-2024 Chloride [Moles/Vol] 100 mmol/L 98-108 [facility] Comprehensive Metabolic Prof ilon 11-29-2024 Albumin [Mass/Vol] 3.8 g/dL Normal 3.4-4.[address] [facility] Comment on above: Performed By: #### L 100.0100, L500.4050, L501.6901 ####[facility] [address] [place], [address] Albumin/Globulin [Mass ratio] 1.4 {ratio} Normal 0.9-2.4 [facility] Comment on above: Performed By: #### L 100.0100, L500.4050, L501.6901 ####[facility] [address] [place], [address] ALK PHOS 75 U/L Normal 35-104 [facility] Comment on above: Performed By: #### L 100.0100, L500.4050, L501.6901 ####[facility] [address] [place], [address] ALT [Catalytic activity/Vol] 15 U/L Normal <=34 [facility] Comment on above: Performed By: #### L 100.0100, L500.4050, L501.6901 ####[facility] [address] [place], [address] AST [Catalytic activity/Vol] 23 U/L Normal <=31 [facility] Comment on above: Performed By: #### L 100.0100, L500.4050, L501.6901 ####[facility] [address] [place], [address] Bilirubin [Mass/Vol] 0.72 mg/dL Normal 0.00-1.30 [facility] Comment on above: Performed By: #### L 100.0100, L500.4050, L501.6901 ####[facility] [address] [place], [address] BUN/CRE 21.6 RATIO High 10-20 [facility] Comment on above: Performed By: #### L 100.0100, L500.4050, L501.6901 ####[facility] [address] [place], [address] Calcium [Mass/Vol] 9.0 mg/dL Normal 7.6-11.[address] [facility] Comment on above: Performed By: #### L 100.0100, L500.4050, L501.6901 ####[facility] [address] [place], [address] Chloride [Moles/Vol] 100 mmol/L Normal 98-108 [facility] Comment on above: Performed By: #### L 100.0100, L500.4050, L501.6901 ####[facility] [address] [place], [address] CO2 [Moles/Vol] 22.8 mmol/L Normal 21.0-32.0 [facility] Comment on above: Performed By: #### L 100.0100, L500.4050, L501.6901 ####[facility] [address] [place], [address] Creatinine [Mass/Vol] 0.82 mg/dL Normal 0.70-1.20 [facility] Comment on above: Performed By: #### L 100.0100, L500.4050, L501.6901 ####[facility] [address] [place], [address] ECRCL 81.15 ml/min Normal 50-250 [facility] Comment on above: Performed By: #### L 100.0100, L500.4050, L501.6901 ####[facility] [address] [place], [address] GAP 11 Normal 5-15 [facility] Comment on above: Performed By: #### L 100.0100, L500.4050, L501.6901 ####[facility] [address] [place], [address] GFR/1.73 sq M.predicted among non-blacks MDRD (S/P/Bld) [Vol rate/Area] 73 mL/min/{1.73_m2} Normal >60 [facility] Comment on above: Result Comment: mL/m in/1.73m2 CKD-EPI Creatinine Equation (2020) Performed By: #### L 100.0100, L500.4050, L501.6901 ####[facility] [address] [place], [address] Globulin (S) [Mass/Vol] 2.7 g/dL Normal 2.2-4.2 [facility] Comment on above: Performed By: #### L 100.0100, L500.4050, L501.6901 ####[facility] [address] [place], [address] Glucose [Mass/Vol] 286 mg/dL High 70-[address] [facility] Comment on above: Performed By: #### L 100.0100, L500.4050, L501.6901 ####[facility] [address] [place], [address] Potassium [Moles/Vol] 4.2 mmol/L Normal 3.3-5.1 [facility] Comment on above: Performed By: #### L 100.0100, L500.4050, L501.6901 ####[facility] [address] [place], [address] Sodium [Moles/Vol] 135 mmol/L Normal 133-[address] [facility] Comment on above: Performed By: #### L 100.0100, L500.4050, L501.6901 ####[facility] [address] [place], [address] T PROT 6.5 g/dL Normal 5.9-8.4 [facility] Comment on above: Performed By: #### L 100.0100, L500.4050, L501.6901 ####[facility] [address] [place], [address] Urea nitrogen [Mass/Vol] 18 mg/dL Normal 4-19 [facility] Comment on above: Performed By: #### L 100.0100, L500.4050, L501.6901 ####[facility] [address] [place], [address] Emergency Department Summary on 11-29-2024 Emergency Department Summary Normal [facility] Eosinophil percentageOrdered By: Serg Solis on 11-29-2024 Eosinophils/100 WBC (Bld) 6.6 % High 0-5 [facility] Erythrocyte distribution wid th ratioOrdered By: Serg Solis on 11-29-2024 Erythrocyte distribution width (RBC) [Ratio] 12.6 % 11.6-14.6 [facility] Erythrocyte distribution wid th standard deviationOrdered By: Serg Solis on 11-29-2024 Erythrocyte distribution width (RBC) [Ratio] 41.7 fl 35.1-43.9 [facility] Glomerular filtration rate ( GFR) estimation/1.73 sq m using serum, plasma, or whole bOrdered By: Serg Solis on 11-29-2024 GFR/1.73 sq M.predicted among non-blacks MDRD (S/P/Bld) [Vol rate/Area] 73 mL/min/{1.73_m2} >60 [facility] Comment on above: mL/min/1.73m2 CKD-EP I Creatinine Equation (2020) [facility] at [facility] deOrdered By: Serg Solis on 11-29-2024 Glucose [Mass/Vol] 265 mg/dL [facility] [address] [facility] Comment on above: MANAGEMENT OF PATIEN T CARE PER NURSING PROTOCOL Glucose [Mass/Vol] 275 mg/dL [address] [facility] Comment on above: MANAGEMENT OF PATIEN T CARE PER NURSING PROTOCOL Hematocrit Auto (Bld) [Volum e fraction]Ordered By: Serg Solis on 11-29-2024 Hematocrit (Bld) [Volume fraction] 38.2 % 37-47 [facility] Hemoglobin measurementOrdere d By: Serg Solis on 11-29-2024 Hemoglobin (Bld) [Mass/Vol] 12.6 g/dL 12.0-15.0 [facility] Immature granulocytes/100 WB C Auto (Bld)Ordered By: Serg Solis on 11-29-2024 Immature granulocytes/100 WBC (Bld) 0.000 % 0.0-0.9 [facility] Comment on above: IG% - Immature Granu locytes (promyelocytes, myelocytes and metamyelocytes) > 1% indicates that a LEFT SHIFT is Present. Ketones Test strip Ql (U)Ord ered By: Serg Solis on 11-29-2024 Ketones Ql (U) 15 mg/dl High Negative [facility] Laboratory - Chemistry and C hemistry - challengeOrdered By: Serg Solis on 11-29-2024 AST [Catalytic activity/Vol] 23 U/L <32 [facility] MCV (mean corpuscular volume ) determinationOrdered By: Serg Solis on 11-29-2024 MCV (RBC) [Entitic vol] 91.0 fL 81-99 [facility] Mean corpuscular hemoglobin (MCH) determinationOrdered By: Serg Solis on 11-29-2024 MCH (RBC) [Entitic mass] 30.0 pg 27.0-32.0 [facility] Mean corpuscular hemoglobin concentration (MCHC) determinationOrdered By: Serg Solis on 11-29-2024 MCHC (RBC) [Mass/Vol] 33.0 g/dL 32-36 [facility] Mean platelet volume determi nationOrdered By: Serg Solis on 11-29-2024 Platelet mean volume (Bld) [Entitic vol] 12.1 fL High 6.2-12.0 [facility] Microscopic analysis of urin e for red blood cells (RBC)Ordered By: Serg Solis on 11-29-2024 Microscopic analysis of urine for red blood cells (RBC) 0 SEEN /hpf 0-5 [facility] Monocyte percentageOrdered B y: Serg Solis on 11-29-2024 Monocytes/100 WBC (Bld) 7.2 % 0-10 [facility] Mucus LM Ql (Urine sed)Order ed By: Serg Solis on 11-29-2024 Mucus Ql (Urine sed) 0 SEEN /hpf [facility] Neutrophil percentageOrdered By: Serg Solis on 11-29-2024 Neutrophils/100 WBC (Bld) 64.8 % 47-70 [facility] Nitrite Test strip Ql (U)Ord ered By: Serg Solis on 11-29-2024 Nitrite Ql (U) Negative Negative [facility] No Panel InformationOrdered By: Serg Solis on 11-29-2024 23 U/L <32 [facility] Nucleated red blood cell per centageOrdered By: Serg Solis on 11-29-2024 Nucleated RBC/100 WBC (Bld) [Ratio] 0 % 0-5 [facility] Platelet countOrdered By: Aubndio Solis on 11-29-2024 Platelets (Bld) [#/Vol] 153 10*3/uL 150-450 [facility] Potassium measurement (mass/ volume)Ordered By: Serg Solis on 11-29-2024 Potassium (Unsp spec) [Mass/Vol] 4.2 mmol/L 3.3-5.1 [facility] Protein Test strip Ql (U)Ord ered By: Serg Solis on 11-29-2024 Protein Ql (U) 15 mg/dl High Negative [facility] RBC Auto (Bld) [#/Vol]Ordere d By: Serg Solis on 11-29-2024 RBC (Bld) [#/Vol] 4.20 10*6/uL 4.2-5.4 [facility] Serum creatinine measurement (mass/volume)Ordered By: Serg Solis on 11-29-2024 Creatinine [Mass/Vol] 0.82 mg/dL 0.70-1.20 [facility] Serum globulin measurementOr dered By: Serg Solis on 11-29-2024 Globulin (S) [Mass/Vol] 2.7 g/dL 2.2-4.2 [facility] Serum glucose measurement (m ass/volume)Ordered By: Serg Solis on 11-29-2024 Glucose [Mass/Vol] 286 mg/dL High 70-[address] [facility] Serum or plasma alanine ramírez otransferase (ALT) measurementOrdered By: Serg Solis on 11-29-2024 ALT [Catalytic activity/Vol] 15 U/L <35 [facility] Serum or plasma albumin zora urement (mass/volume)Ordered By: Serg Solis on 11-29-2024 Albumin [Mass/Vol] 3.8 g/dL 3.4-4.[address] [facility] Serum or plasma albumin/glob ulin mass ratioOrdered By: Serg Solis on 11-29-2024 Albumin/Globulin [Mass ratio] 1.4 {ratio} 0.9-2.4 [facility] Serum or plasma alkaline dhiraj sphatase measurementOrdered By: Serg Solis on 11-29-2024 ALP [Catalytic activity/Vol] 75 U/L 35-104 [facility] Serum or plasma calcium zora urement (mass/volume)Ordered By: Serg Solis on 11-29-2024 Calcium [Mass/Vol] 9.0 mg/dL 7.6-11.[address] [facility] Serum or plasma urea nitroge n measurement (mass/volume)Ordered By: Serg Solis on 11-29-2024 Urea nitrogen [Mass/Vol] 18 mg/dL 4-19 [facility] Sodium levelOrdered By: Serg Solis on 11-29-2024 Sodium [Moles/Vol] 135 mmol/L 133-[address] [facility] Squamous epithelial cells de tection in urine sediment by light microscopyOrdered By: Serg Solis on 11-29-2024 Epithelial cells.squamous LM Ql (Urine sed) 0-5 SEEN /hpf 5-10 [facility] Total proteinOrdered By: Ting Solis on 11-29-2024 Protein [Mass/Vol] 6.5 g/dL 5.9-8.[address] [facility] Urinalysis, Completeon 11-29 EPI,SQUAMOUS 0-5 SEEN Normal 5-10 [facility] Comment on above: Order Comment: CLEAN CATCH Performed By: #### L 400.0001 ####[facility] [address] [place], [address] WBC 0-5 SEEN Normal 0-5 [facility] Comment on above: Order Comment: CLEAN CATCH Performed By: #### L 400.0001 ####[facility] [address] [place], [address] BACTERIA 0 SEEN Normal None Seen [facility] Comment on above: Order Comment: CLEAN CATCH Performed By: #### L 400.0001 ####[facility] [address] [place], [address] Mucus Ql (Urine sed) 0 SEEN Normal [facility] Comment on above: Order Comment: CLEAN CATCH Performed By: #### L 400.0001 ####[facility] [address] [place], [address] RBC 0 SEEN Normal 0-5 [facility] Comment on above: Order Comment: CLEAN CATCH Performed By: #### L 400.0001 ####[facility] [address] [place], [address] Urine clarityOrdered By: Ting Solis on 11-29-2024 Clarity (U) Clear Clear [facility] Urine color determinationOrd ered By: Serg Solis on 11-29-2024 Color (U) Straw Yellow [facility] Urine glucose detectionOrder ed By: Serg Solis on 11-29-2024 Glucose Ql (U) 50 mg/dl High Normal [facility] Urine leukocyte esterase det ection by dipstickOrdered By: Serg Solis on 11-29-2024 Leukocyte esterase Test strip Ql (U) Negative Negative [facility] Urine pHOrdered By: Serg cedillo on 11-29-2024 pH (U) 6.0 [pH] 5.0 - 8.0 [facility] Urine sediment bacteria coun t by microscopy (number/high power field)Ordered By: Serg Solis on 11-29-2024 Bacteria LM.HPF (Urine sed) [#/Area] 0 /[HPF] None Seen [facility] Urine specific gravity measu rementOrdered By: Serg Solis on 11-29-2024 Specific gravity (U) [Rel density] 1.015 1.002-1.030 [facility] Urine urobilinogen measureme ntOrdered By: Serg Solis on 11-29-2024 Urobilinogen Ql (U) Normal mg/dl Normal [facility] White blood cell (WBC) count Ordered By: Serg Solis on 11-29-2024 WBC (Bld) [#/Vol] 5.3 10*3/uL 4.4-11.[address] [facility] White blood cell countOrdere d By: Serg Solis on 11-29-2024 White blood cell count 0-5 SEEN /hpf 0-5 [facility] Cardiology Visit Reporton Cardiology Visit Report Normal [facility] CNPTOUTREACHon 11-07-2024 CNPTOUTREACH Normal [facility] Bedside Glucoseon 11-03-2024 FINGERSTICK GLU 135 mg/dL High 74-106 [facility] Comment on above: Result Comment: MERCDEES SUBRAMANIAN OF PATIENT CARE PER NURSING PROTOCOL Performed By: #### L 501.080 ####[facility] [address] [place], [address] Emergency Department Summary on 11-03-2024 Emergency Department Summary Normal [facility] Glucose measurement at [facility] deOrdered By: Zay Juan on 11-03-2024 Glucose [Mass/Vol] 135 mg/dL High 74-[address] [facility] Comment on above: MANAGEMENT OF PATIEN T CARE PER NURSING PROTOCOL Venous Duplex US, Unilateral on 11-03-2024 Venous Duplex US, Unilateral Normal [facility] CNOVon 10-31-2024 CNOV Normal [facility] CNPNon 10-29-2024 CNPN Normal [facility] CNPNon 10-25-2024 CNPN Normal [facility] Bedside Glucoseon 10-24-2024 FINGERSTICK GLU 194 mg/dL High 74-106 [facility] Comment on above: Result Comment: MERCEDES SUBRAMANIAN OF PATIENT CARE PER NURSING PROTOCOL Performed By: #### L 501.080 ####[facility] [address] [place], [address] Emergency Department Summary on 10-24-2024 Emergency Department Summary Normal [facility] Glucose measurement at [facility] deOrdered By: Benjamín Stanford on 10-24-2024 Bedside Glucose (Misc Panel) 194 mg/dL High 74-106 [facility] Comment on above: MANAGEMENT OF PATIEN T CARE PER NURSING PROTOCOL Glucose [Mass/Vol] 194 mg/dL High 74-[address] [facility] Comment on above: MANAGEMENT OF PATIEN T CARE PER NURSING PROTOCOL Venous Duplex Imag/Limited/U nion 10-24-2024 Venous Duplex Imag/Limited/Uni Normal [facility] Absolute lymphocyte countOrd ered By: Holland Sanches on 10-19-2024 Lymphocytes Auto (Unsp spec) [#/Vol] 0.79 10*3/uL Low 0.83-4.51 [facility] Absolute neutrophil countOrd ered By: Holland Sanches on 10-19-2024 Neutrophils (Bld) [#/Vol] 4.2 10*3/uL 2.0-7.7 [facility] Anion gap in Serum or Plasma Ordered By: Holland Sanches on 10-19-2024 Anion gap [Moles/Vol] 12 mmol/L 5-15 [facility] Automated lymphocyte count a s percentage of total leukocytesOrdered By: Holland Sanches on 10-19-2024 Lymphocytes/100 WBC Auto (Unsp spec) 14.4 % Low 19-41 [facility] BUN/creatinine ratioOrdered By: Holland Sanches on 10-19-2024 Urea nitrogen/Creatinine [Mass ratio] 23.1 mg/mg High 10-20 [facility] Basic Metabolic Profile (BMP )on 10-19-2024 BUN/CRE 23.1 RATIO High 10-20 [facility] Comment on above: Performed By: #### L 501.6901, L100.0100, L500.2500 ####[facility] [address] [place], [address] Calcium [Mass/Vol] 9.3 mg/dL Normal 7.6-11.[address] [facility] Comment on above: Performed By: #### L 501.6901, L100.0100, L500.2500 ####[facility] [address] [place], [address] Chloride [Moles/Vol] 101 mmol/L Normal 98-108 [facility] Comment on above: Performed By: #### L 501.6901, L100.0100, L500.2500 ####[facility] [address] [place], [address] CO2 [Moles/Vol] 23.3 mmol/L Normal 21.0-32.0 [facility] Comment on above: Performed By: #### L 501.6901, L100.0100, L500.2500 ####[facility] [address] [place], [address] Creatinine [Mass/Vol] 0.83 mg/dL Normal 0.70-1.20 [facility] Comment on above: Performed By: #### L 501.6901, L100.0100, L500.2500 ####[facility] [address] [place], [address] ECRCL 79.68 ml/min Normal 50-250 [facility] Comment on above: Performed By: #### L 501.6901, L100.0100, L500.2500 ####[facility] [address] [place], [address] GAP 12 Normal 5-15 [facility] Comment on above: Performed By: #### L 501.6901, L100.0100, L500.2500 ####[facility] [address] [place], [address] GFR/1.73 sq M.predicted among non-blacks MDRD (S/P/Bld) [Vol rate/Area] 72 mL/min/{1.73_m2} Normal >60 [facility] Comment on above: Result Comment: mL/m in/1.73m2 CKD-EPI Creatinine Equation (2020) Performed By: #### L 501.6901, L100.0100, L500.2500 ####[facility] [address] [place], [address] Glucose [Mass/Vol] 334 mg/dL High 70-[address] [facility] Comment on above: Performed By: #### L 501.6901, L100.0100, L500.2500 ####[facility] [address] [place], [address] Potassium [Moles/Vol] 4.5 mmol/L Normal 3.3-5.1 [facility] Comment on above: Performed By: #### L 501.6901, L100.0100, L500.2500 ####[facility] [address] [place], [address] Sodium [Moles/Vol] 136 mmol/L Normal 133-[address] [facility] Comment on above: Performed By: #### L 501.6901, L100.0100, L500.2500 ####[facility] [address] [place], [address] Urea nitrogen [Mass/Vol] 19 mg/dL Normal 4-19 [facility] Comment on above: Performed By: #### L 501.6901, L100.0100, L500.2500 ####[facility] [address] [place], [address] Basophil percentageOrdered B y: Holland Sanches on 10-19-2024 Basophils/100 WBC (Bld) 0.5 % 0-1 [facility] Bedside Glucoseon 10-19-2024 FINGERSTICK GLU 320 mg/dL High 74-106 [facility] Comment on above: Result Comment: MERCEDES GEMENT OF PATIENT CARE PER NURSING PROTOCOL Performed By: #### L 501.080 ####[facility] [address] [place], [address] FINGERSTICK GLU 339 mg/dL High 74-106 [facility] Comment on above: Result Comment: MERCEDES GEMENT OF PATIENT CARE PER NURSING PROTOCOL Performed By: #### L 501.080 ####[facility] [address] [place], [address] Beta hydroxybutyrate [Mass/V ol]Ordered By: Holland Sanches on 10-19-2024 Beta-Hydroxybutyric Acid mmol/L 0.8 mmol/L 0.0-0.3 [facility] Beta-Hydroxbytyrateon 2024 BETA-HYDROXYBUT 0.8 mmol/L Normal 0.0-0.3 [facility] Comment on above: Performed By: #### L 501.6901, L100.0100, L500.2500 ####[facility] [address] [place], [address] Beta-hydroxybutyrateOrdered By: Holland Sanches on 10-19-2024 Beta hydroxybutyrate [Mass/Vol] 0.8 mmol/L 0.0-0.3 [facility] Bilirubin Test strip Ql (U)O rdered By: Holland Sanches on 10-19-2024 Bilirubin Ql (U) Negative Negative [facility] CBC W/Diff, Automatedon 04-0 -2024 Absolute Lymph 0.79 X10 3/uL Low 0.83-4.51 [facility] Comment on above: Performed By: #### L 501.6901, L100.0100, L500.2500 ####[facility] [address] [place], [address] Absolute Neut 4.2 X10 3/uL Normal 2.0-7.7 [facility] Comment on above: Performed By: #### L 501.6901, L100.0100, L500.2500 ####[facility] [address] [place], [address] Basophils/100 WBC (Bld) 0.5 % Normal 0-1 [facility] Comment on above: Performed By: #### L 501.6901, L100.0100, L500.2500 ####[facility] [address] [place], [address] Eosinophils/100 WBC (Bld) 2.5 % Normal 0-5 [facility] Comment on above: Performed By: #### L 501.6901, L100.0100, L500.2500 ####[facility] [address] [place], [address] Erythrocyte distribution width (RBC) [Ratio] 12.7 % Normal 11.6-14.6 [facility] Comment on above: Performed By: #### L 501.6901, L100.0100, L500.2500 ####[facility] [address] [place], [address] Hematocrit (Bld) [Volume fraction] 39.4 % Normal 37-47 [facility] Comment on above: Performed By: #### L 501.6901, L100.0100, L500.2500 ####[facility] [address] [place], [address] Hemoglobin (Bld) [Mass/Vol] 12.9 g/dL Normal 12.0-15.0 [facility] Comment on above: Performed By: #### L 501.6901, L100.0100, L500.2500 ####[facility] [address] [place], [address] IG% 0.000 Normal 0.0-0.9 [facility] Comment on above: Result Comment: IG% - Immature Granulocytes (promyelocytes, myelocytes andmetamyelocytes) > 1% indicates that a LEFT SHIFT is Present. Performed By: #### L 501.6901, L100.0100, L500.2500 ####[facility] [address] [place], [address] Lymphocytes/100 WBC (Bld) 14.4 % Low 19-41 [facility] Comment on above: Performed By: #### L 501.6901, L100.0100, L500.2500 ####[facility] [address] [place], [address] MCH (RBC) [Entitic mass] 29.7 pg Normal 27.0-32.0 [facility] Comment on above: Performed By: #### L 501.6901, L100.0100, L500.2500 ####[facility] [address] [place], [address] MCHC (RBC) [Mass/Vol] 32.7 g/dL Normal 32-36 [facility] Comment on above: Performed By: #### L 501.6901, L100.0100, L500.2500 ####[facility] [address] [place], [address] MCV (RBC) [Entitic vol] 90.6 fL Normal 81-99 [facility] Comment on above: Performed By: #### L 501.6901, L100.0100, L500.2500 ####[facility] [address] [place], [address] Monocytes/100 WBC (Bld) 6.4 % Normal 0-10 [facility] Comment on above: Performed By: #### L 501.6901, L100.0100, L500.2500 ####[facility] [address] [place], [address] Neutrophils/100 WBC (Bld) 76.2 % High 47-70 [facility] Comment on above: Performed By: #### L 501.6901, L100.0100, L500.2500 ####[facility] [address] [place], [address] Nucleated RBC (Bld) [#/Vol] 0 10*3/uL Normal 0-5 [facility] Comment on above: Performed By: #### L 501.6901, L100.0100, L500.2500 ####[facility] [address] [place], [address] Platelet mean volume (Bld) [Entitic vol] 12.9 fL High 6.2-12.0 [facility] Comment on above: Performed By: #### L 501.6901, L100.0100, L500.2500 ####[facility] [address] [place], [address] Platelets (Bld) [#/Vol] 159 10*3/uL Normal 150-450 [facility] Comment on above: Performed By: #### L 501.6901, L100.0100, L500.2500 ####[facility] [address] [place], [address] RBC (Bld) [#/Vol] 4.35 10*6/uL Normal 4.2-5.4 [facility] Comment on above: Performed By: #### L 501.6901, L100.0100, L500.2500 ####[facility] [address] [place], [address] RDW SD 41.8 fl Normal 35.1-43.9 [facility] Comment on above: Performed By: #### L 501.6901, L100.0100, L500.2500 ####[facility] [address] [place], [address] WBC (Bld) [#/Vol] 5.5 10*3/uL Normal 4.4-11.[address] [facility] Comment on above: Performed By: #### L 501.6901, L100.0100, L500.2500 ####[facility] [address] [place], [address] CNPNon 10-19-2024 CNPN Normal [facility] Carbon dioxide, total [Moles /volume] in Central venous bloodOrdered By: Holland Sanches on 10-19-2024 CO2 [Moles/Vol] 23.3 mmol/L 21.0-32.0 [facility] Chloride assayOrdered By: Michael Sanches on 10-19-2024 Chloride [Moles/Vol] 101 mmol/L 98-108 [facility] Emergency Department Summary on 10-19-2024 Emergency Department Summary Normal [facility] Eosinophil percentageOrdered By: Holland Sanches on 10-19-2024 Eosinophils/100 WBC (Bld) 2.5 % 0-5 [facility] Epithelial cells.squamous LM Ql (Urine sed)Ordered By: Holland Sanches on 10-19-2024 Epithelial cells.squamous LM.HPF (Urine sed) [#/Area] 0 /[HPF] 5-10 [facility] Erythrocyte distribution wid th (RBC) [Ratio]Ordered By: Holland Sanches on 10-19-2024 Erythrocyte distribution width (RBC) [Entitic vol] 41.8 fL 35.1-43.9 [facility] Erythrocyte distribution wid th ratioOrdered By: Holland Sanches on 10-19-2024 Erythrocyte distribution width (RBC) [Ratio] 12.7 % 11.6-14.6 [facility] Erythrocyte distribution wid th standard deviationOrdered By: Holland Sanches on 10-19-2024 Erythrocyte distribution width (RBC) [Ratio] 41.8 fl 35.1-43.9 [facility] Estimation of creatinine kimberly aranceOrdered By: Holland Sanches on 10-19-2024 Estimated Creatinine Clearance Calc 79.68 ml/min 50-250 [facility] GFR/1.73 sq M.predicted du g non-blacks MDRD (S/P/Bld) [Vol rate/Area]Ordered By: Holland Sanches on 10-19-2024 Estimated GFR (MDRD) Non-Af Amer 72 >60 [facility] Comment on above: mL/min/1.73m2 CKD-EP I Creatinine Equation (2020) Glomerular filtration rate ( GFR) estimation/1.73 sq m using serum, plasma, or whole bOrdered By: Holland Sanches on 10-19-2024 GFR/1.73 sq M.predicted among non-blacks MDRD (S/P/Bld) [Vol rate/Area] 72 mL/min/{1.73_m2} >60 [facility] Comment on above: mL/min/1.73m2 CKD-EP I Creatinine Equation (2020) Glucose Ql (U)Ordered By: Michael Sanches on 10-19-2024 Glucose (U) [Mass/Vol] 1000 mg/dL High Normal [place] Glucose measurement at [facility] deOrdered By: Holland Sanches on 10-19-2024 Bedside Glucose (Misc Panel) 320 mg/dL High 74-106 [facility] Comment on above: MANAGEMENT OF PATIEN T CARE PER NURSING PROTOCOL Glucose [Mass/Vol] 320 mg/dL High 74-[address] [facility] Comment on above: MANAGEMENT OF PATIEN T CARE PER NURSING PROTOCOL HIP, UNI W/ Pelvis 2-3 Views on 10-19-2024 HIP, UNI W/ Pelvis 2-3 Views Normal [facility] Hematocrit Auto (Bld) [Volum e fraction]Ordered By: Holland Sanches on 10-19-2024 Hematocrit (Bld) [Volume fraction] 39.4 % 37-47 [facility] Hemoglobin measurementOrdere d By: Holland Sanches on 10-19-2024 Hemoglobin (Bld) [Mass/Vol] 12.9 g/dL 12.0-15.0 [facility] Immature granulocytes/100 WB C Auto (Bld)Ordered By: Holland Sanches on 10-19-2024 Immature granulocytes/100 WBC (Bld) 0.000 % 0.0-0.9 [facility] Comment on above: IG% - Immature Granu locytes (promyelocytes, myelocytes and metamyelocytes) > 1% indicates that a LEFT SHIFT is Present. Ketones Test strip Ql (U)Ord ered By: Holland Sanches on 10-19-2024 Ketones Ql (U) 50 mg/dl High Negative [facility] Lymphocytes Auto (Unsp spec) [#/Vol]Ordered By: Holland Sanches on 10-19-2024 Lymphocytes (Bld) [#/Vol] 0.79 10*3/uL Low 0.83-4.51 [facility] Lymphocytes/100 WBC Auto (Un sp spec)Ordered By: Holland Sanches on 10-19-2024 Lymphocytes/100 WBC (Bld) 14.4 % Low 19-41 [facility] MCV (mean corpuscular volume ) determinationOrdered By: Holland Sanches on 10-19-2024 MCV (RBC) [Entitic vol] 90.6 fL 81-99 [facility] Mean corpuscular hemoglobin (MCH) determinationOrdered By: Holland Sanches on 10-19-2024 MCH (RBC) [Entitic mass] 29.7 pg 27.0-32.0 [facility] Mean corpuscular hemoglobin concentration (MCHC) determinationOrdered By: Holland Sanches on 10-19-2024 MCHC (RBC) [Mass/Vol] 32.7 g/dL 32-36 [facility] Mean platelet volume determi nationOrdered By: Holland Sanches on 10-19-2024 Platelet mean volume (Bld) [Entitic vol] 12.9 fL High 6.2-12.0 [facility] Microscopic analysis of urin e for red blood cells (RBC)Ordered By: Holland Sanches on 10-19-2024 Microscopic analysis of urine for red blood cells (RBC) 0 SEEN /hpf 0-5 [facility] Urine RBC 0 SEEN /hpf 0-5 [facility] Monocyte percentageOrdered B y: Holland Sanches on 10-19-2024 Monocytes/100 WBC (Bld) 6.4 % 0-10 [facility] Mucus LM Ql (Urine sed)Order ed By: Holland Sanches on 10-19-2024 Mucus Ql (Urine sed) 0 SEEN /hpf [facility] Neutrophil percentageOrdered By: Holland Sanches on 10-19-2024 Neutrophils/100 WBC (Bld) 76.2 % High 47-70 [facility] Nitrite Test strip Ql (U)Ord ered By: Holland Sanches on 10-19-2024 Nitrite Ql (U) Negative Negative [facility] Nucleated red blood cell per centageOrdered By: Holland Sanches on 10-19-2024 Nucleated RBC/100 WBC (Bld) [Ratio] 0 % 0-5 [facility] Platelet countOrdered By: Michael Sanches on 10-19-2024 Platelets (Bld) [#/Vol] 159 10*3/uL 150-450 [facility] Potassium (Unsp spec) [Mass/ Vol]Ordered By: Holland Sanches on 10-19-2024 Potassium [Moles/Vol] 4.5 mmol/L 3.3-5.1 [facility] Potassium measurement (mass/ volume)Ordered By: Holland Sanches on 10-19-2024 Potassium (Unsp spec) [Mass/Vol] 4.5 mmol/L 3.3-5.1 [facility] Protein Test strip Ql (U)Ord ered By: Holland Sanches on 10-19-2024 Protein Ql (U) Negative Negative [facility] RBC Auto (Bld) [#/Vol]Ordere d By: Holland Sanches on 10-19-2024 RBC (Bld) [#/Vol] 4.35 10*6/uL 4.2-5.4 [facility] Serum creatinine measurement (mass/volume)Ordered By: Holland Sanches on 10-19-2024 Creatinine [Mass/Vol] 0.83 mg/dL 0.70-1.20 [facility] Serum glucose measurement (m ass/volume)Ordered By: Holland Sanches on 10-19-2024 Glucose [Mass/Vol] 334 mg/dL High 70-[address] [facility] Serum or plasma calcium zora urement (mass/volume)Ordered By: Holland Sanches on 10-19-2024 Calcium [Mass/Vol] 9.3 mg/dL 7.6-11.[address] [facility] Serum or plasma urea nitroge n measurement (mass/volume)Ordered By: Holland Sanches on 10-19-2024 Urea nitrogen [Mass/Vol] 19 mg/dL 4-19 [facility] Sodium levelOrdered By: Frank Sanches on 10-19-2024 Sodium [Moles/Vol] 136 mmol/L 133-[address] [facility] Squamous epithelial cells de tection in urine sediment by light microscopyOrdered By: Holland Sanches on 10-19-2024 Epithelial cells.squamous LM Ql (Urine sed) 0 SEEN /hpf 5-10 [facility] Urinalysis, Completeon 10-19 WBC 0-5 SEEN Normal 0-5 [facility] Comment on above: Order Comment: CLEAN CATCH Performed By: #### L 400.0001 ####[facility] [address] [place], [address] BACTERIA 0 SEEN Normal None Seen [facility] Comment on above: Order Comment: CLEAN CATCH Performed By: #### L 400.0001 ####[facility] [address] [place], [address] EPI,SQUAMOUS 0 SEEN Normal 5-10 [facility] Comment on above: Order Comment: CLEAN CATCH Performed By: #### L 400.0001 ####[facility] [address] [place], [address] Mucus Ql (Urine sed) 0 SEEN Normal [facility] Comment on above: Order Comment: CLEAN CATCH Performed By: #### L 400.0001 ####[facility] [address] [place], [address] RBC 0 SEEN Normal 0-5 [facility] Comment on above: Order Comment: CLEAN CATCH Performed By: #### L 400.0001 ####[facility] [address] [place], [address] Urine blood detectionOrdered By: Holland Sanches on 10-19-2024 Urine Occult Blood 10 /ul High Negative [facility] Urine clarityOrdered By: Fahad Sanches on 10-19-2024 Clarity (U) Clear Clear [facility] Urine color determinationOrd ered By: Holland Sanches on 10-19-2024 Color (U) Yellow Yellow [facility] Urine glucose detectionOrder ed By: Holland Sanches on 10-19-2024 Glucose Ql (U) 1000 mg/dl High Normal [facility] Urine leukocyte esterase det ection by dipstickOrdered By: Holland Sanches on 10-19-2024 Leukocyte esterase Test strip Ql (U) 25 /ul High Negative [facility] Urine pHOrdered By: Holland saunders on 10-19-2024 pH (U) 6.0 [pH] 5.0 - 8.0 [facility] Urine sediment bacteria coun t by microscopy (number/high power field)Ordered By: Holland Sanches on 10-19-2024 Bacteria LM.HPF (Urine sed) [#/Area] 0 /[HPF] None Seen [facility] Urine specific gravity measu rementOrdered By: Holland Sanches on 10-19-2024 Specific gravity (U) [Rel density] 1.015 1.002-1.030 [facility] Urine urobilinogen measureme ntOrdered By: Holland Sanches on 10-19-2024 Urobilinogen Ql (U) Normal mg/dl Normal [facility] Urobilinogen Ql (U)Ordered B y: Holland Sanches on 10-19-2024 Urine Urobilinogen Normal mg/dl Normal [facility] White blood cell (WBC) count Ordered By: Holland Sanches on 10-19-2024 WBC (Bld) [#/Vol] 5.5 10*3/uL 4.4-11.[address] [facility] White blood cell countOrdere d By: Holland Sanches on 04-04-2025 Urine WBC 0-5 SEEN /hpf 0-5 [facility] White blood cell count 0-5 SEEN /hpf 0-5 [facility] CNOVon 10-15-2024 CNOV Normal [facility] CNPNon 10-04-2024 CNPN Normal [facility] ALBUMIN/CREATININE RATIO, UR INEon 10-01-2024 Albumin DL <= 20 mg/L (U) [Mass/Vol] mg/dL Normal [facility] Comment on above: Order Comment: Speci men Type: URINE SPECIMENOrdering Facility: [facility] Address: [address] [place] [address] Performed By: #### U ACR ####[facility] [id number] [place] [address] [place] Albumin/Creatinine (U) [Mass ratio] <27 Normal <30 [facility] Comment on above: Order Comment: Speci men Type: URINE SPECIMENOrdering Facility: [facility] Address: [address] [place] [address] Result Comment: Adul t Male and Female Nephrotic Criteria:<30 mg/g is considered normal to mildly -027 mg/g is considered moderately increased>300 mg/g is considered severely increasedKDIGO. (2013). KDIGO 2012 Clinical Practice Guideline for the Evaluation and Management of Chronic Kidney Disease. Official Journal of the International Society of Nephrology, 3(1), 1-150. Performed By: #### U ACR ####[facility] [id number] [place] [id number] [place] Creatinine (U) [Mass/Vol] 44.9 mg/dL Normal 20.0-300.0 [facility] Comment on above: Order Comment: Speci men Type: URINE SPECIMENOrdering Facility: [facility] Address: [address] [place] [address] Performed By: #### U ACR ####[facility] [id number] [place] [id number] [place] CBC panel Auto (Bld)on 10-01 Erythrocyte distribution width (RBC) [Ratio] 12.9 % Normal 11.5-15.0 [facility] Comment on above: Order Comment: Speci men Type: BLOOD SPECIMENOrdering Facility: [facility] Address: [address] [place] [address] Performed By: #### 5 8410-2 ####[facility] [id number] [place] [address] [place] Hematocrit (Bld) [Volume fraction] 39.1 % Normal 36.0-46.0 [facility] Comment on above: Order Comment: Speci men Type: BLOOD SPECIMENOrdering Facility: [facility] Address: [address] [place] [address] Performed By: #### 5 8410-2 ####[facility] [id number] [place] [address] [place] Hemoglobin (Bld) [Mass/Vol] 12.9 g/dL Normal 11.5-15.5 [facility] Comment on above: Order Comment: Speci men Type: BLOOD SPECIMENOrdering Facility: [facility] Address: [address] [place] [address] Performed By: #### 5 8410-2 ####[facility] [id number] [place] [address] [place] MCH (RBC) [Entitic mass] 29.7 pg Normal 26.0-34.0 [facility] Comment on above: Order Comment: Speci men Type: BLOOD SPECIMENOrdering Facility: [facility] Address: [address] [place] [address] Performed By: #### 5 8410-2 ####[facility]ITALNCLIA [id number] [place] [address] [place] MCHC (RBC) [Mass/Vol] 33.0 g/dL Normal 30.5-36.0 [facility] Comment on above: Order Comment: Speci men Type: BLOOD SPECIMENOrdering Facility: [facility] Address: [address] [place] [address] Performed By: #### 5 8410-2 ####[facility] IRENE [id number] [place] [address] [place] MCV (RBC) [Entitic vol] 90.1 fL Normal 80.0-100.0 [facility] Comment on above: Order Comment: Speci men Type: BLOOD SPECIMENOrdering Facility: [facility] Address: [address] [place] [address] Performed By: #### 5 8410-2 ####[facility] HOSPITALRICARDOGm [id number] [place] [address] [place] Nucleated RBC (Bld) [#/Vol] 10*3/uL Normal <0.01 [facility] Comment on above: Order Comment: Speci men Type: BLOOD SPECIMENOrdering Facility: [facility] Address: [address] [place] [address] Performed By: #### 5 8410-2 ####[facility] HOSPITALPADMINIGm [id number] [place] [address] [place] Platelet mean volume (Bld) [Entitic vol] 11.9 fL Normal 9.0-12.7 [facility] Comment on above: Order Comment: Speci men Type: BLOOD SPECIMENOrdering Facility: [facility] Address: [address] [place] [address] Performed By: #### 5 8410-2 ####[facility] HOSPITALPADMINIA [id number] [place] [address] [place] Platelets (Bld) [#/Vol] 206 10*3/uL Normal 150-400 [facility] Comment on above: Order Comment: Speci men Type: BLOOD SPECIMENOrdering Facility: [facility] Address: [address] [place] [address] Performed By: #### 5 8410-2 ####[facility] TRACEYWRICARDOLIA [id number] [place] [address] [place] RBC (Bld) [#/Vol] 4.34 10*6/uL Normal 3.90-5.20 [facility] Comment on above: Order Comment: Speci men Type: BLOOD SPECIMENOrdering Facility: [facility] Address: [address] [place], [place] [address] Performed By: #### 5 8410-2 ####[facility] HOSPITALNCDANIELA [id number] [place] [address] [place] WBC (Bld) [#/Vol] 6.04 10*3/uL Normal 3.70-11.00 [facility] Comment on above: Order Comment: Speci men Type: BLOOD SPECIMENOrdering Facility: [facility] Address: [address] [place] [address] Performed By: #### 5 8410-2 ####[facility] [id number] [place] [address] [place] CNCNPATEDon 10-01-2024 CNCNPATED Normal [facility] Comprehensive metabolic 2000 panelon 10-01-2024 Albumin [Mass/Vol] 3.9 g/dL Normal 3.9-4.9 [facility] Comment on above: Order Comment: Speci men Type: BLOOD SPECIMENOrdering Facility: [facility] Address: [address] [place] [address] Performed By: #### 2 4323-8 ####[facility]ITALNCLIA [id number] [place] [address] [place] ALP [Catalytic activity/Vol] 74 U/L Normal 34-123 [facility] Comment on above: Order Comment: Speci men Type: BLOOD SPECIMENOrdering Facility: [facility] Address: [address] [place] [address] Performed By: #### 2 4323-8 ####[facility] MILLTOWNCLIA [id number] [place] [address] [place] ALT [Catalytic activity/Vol] 21 U/L Normal 7-38 [facility] Comment on above: Order Comment: Speci men Type: BLOOD SPECIMENOrdering Facility: [facility] Address: [address] [place] [address] Performed By: #### 2 4323-8 ####[facility] MILLTOWNCLIA [id number] [place] [address] [place] Anion gap [Moles/Vol] 9 mmol/L Normal 8-15 [facility] Comment on above: Order Comment: Speci men Type: BLOOD SPECIMENOrdering Facility: [facility] Address: [address] [place] [address] Performed By: #### 2 4323-8 ####[facility]ITALNCLIA [id number] [place] [address] [place] AST [Catalytic activity/Vol] 21 U/L Normal 13-35 [facility] Comment on above: Order Comment: Speci men Type: BLOOD SPECIMENOrdering Facility: [facility] Address: [address] [place] [address] Performed By: #### 2 4323-8 ####[facility]ITALWNCLIA [id number] [place] [address] [place] Bilirubin [Mass/Vol] 0.6 mg/dL Normal 0.2-1.3 [facility] Comment on above: Order Comment: Speci men Type: BLOOD SPECIMENOrdering Facility: [facility] Address: [address] [place] [address] Performed By: #### 2 4323-8 ####[facility]ITALNCLIA [id number] [place] [address] [place] Calcium [Mass/Vol] 9.4 mg/dL Normal 8.5-10.2 [facility] Comment on above: Order Comment: Speci men Type: BLOOD SPECIMENOrdering Facility: [facility] Address: [address] [place] [address] Performed By: #### 2 4323-8 ####[facility] MILLWNCLIA [id number] [place] [address] [place] Chloride [Moles/Vol] 102 mmol/L Normal 98-107 [facility] Comment on above: Order Comment: Speci men Type: BLOOD SPECIMENOrdering Facility: [facility] Address: [address] [place] [address] Performed By: #### 2 4323-8 ####[facility] HOSPITALLI [id number] [place] [address] [place] CO2 [Moles/Vol] 29 mmol/L Normal 22-30 [facility] Comment on above: Order Comment: Speci men Type: BLOOD SPECIMENOrdering Facility: [facility] Address: [address] [place] [address] Performed By: #### 2 4323-8 ####[facility] HOSPITALLIA [id number] [place] [address] [place] Creatinine [Mass/Vol] 0.69 mg/dL Normal 0.58-0.96 [facility] Comment on above: Order Comment: Speci men Type: BLOOD SPECIMENOrdering Facility: [facility] Address: [address] [place] [address] Performed By: #### 2 4323-8 ####[facility] HOSPITALLIA [id number] [place] [address] [place] Creatinine and Glomerular filtration rate.predicted panel (S/P/Bld) 88 mL/min/1.73m??? Normal >=60 [facility] Comment on above: Order Comment: Speci men Type: BLOOD SPECIMENOrdering Facility: [facility] Address: [address] [place] [id number] Result Comment: Judith mated Glomerular Filtration Rate [...] actual GFR. Performed By: #### 2 4323-8 ####[facility] [id number] [place] [address] [place] Glucose [Mass/Vol] 173 mg/dL High 74-99 [facility] Comment on above: Order Comment: Ruma deluna Type: BLOOD SPECIMENOrdering Facility: [facility] Address: [address] [place] [address] Result Comment: The [place] Diabetes Association (ADA) provides guidance for cutoff [...] Standards of Medical Care in Diabetes 2016, [place] [employer]. Diabetes Care. 2016.39(Suppl 1). Performed By: #### 2 4323-8 ####[facility] [id number] [place] [address] [place] Potassium [Moles/Vol] 4.4 mmol/L Normal 3.7-5.1 [facility] Comment on above: Order Comment: Ruma deluna Type: BLOOD SPECIMENOrdering Facility: [facility] Address: [address] [place] [id number] Performed By: #### 2 4323-8 ####[facility] MILLTOWNCLIA [id number] [place] [address] [place] Protein [Mass/Vol] 6.5 g/dL Normal 6.3-8.0 [facility] Comment on above: Order Comment: Speci men Type: BLOOD SPECIMENOrdering Facility: [facility] Address: [address] [place] [address] Performed By: #### 2 4323-8 ####[facility]ITALNCLIA [id number] [place] [address] [place] Sodium [Moles/Vol] 140 mmol/L Normal 136-144 [facility] Comment on above: Order Comment: Speci men Type: BLOOD SPECIMENOrdering Facility: [facility] Address: [address] [place] [address] Performed By: #### 2 4323-8 ####[facility]ITALWNCLIA [id number] [place] [address] [place] Urea nitrogen [Mass/Vol] 17 mg/dL Normal 7-21 [facility] Comment on above: Order Comment: Speci men Type: BLOOD SPECIMENOrdering Facility: [facility] Address: [address] [place] [address] Performed By: #### 2 4323-8 ####[facility]ITALNCLIA [id number] [place] [address] [place] CNPNon 09-27-2024 CNPN Normal [facility] CNOVon 09-26-2024 CNOV Normal [facility] Absolute lymphocyte countOrd ered By: Amber Martino on 09-23-2024 Lymphocytes Auto (Unsp spec) [#/Vol] 0.69 10*3/uL Low 0.83-4.51 [facility] Absolute neutrophil countOrd ered By: Amber Martino on 09-23-2024 Neutrophils (Bld) [#/Vol] 2.7 10*3/uL 2.0-7.7 [facility] Anion gap in Serum or Plasma Ordered By: Amber Martino on 09-23-2024 Anion gap [Moles/Vol] 11 mmol/L 5-15 [facility] Automated lymphocyte count a s percentage of total leukocytesOrdered By: Amber Martino on 09-23-2024 Lymphocytes/100 WBC Auto (Unsp spec) 17.6 % Low 19-41 [facility] BUN/creatinine ratioOrdered By: Amber Martino on 09-23-2024 Urea nitrogen/Creatinine [Mass ratio] 20.4 mg/mg High 10-20 [facility] Basic Metabolic Profile (BMP )on 09-23-2024 BUN/CRE 20.4 RATIO High 10- [facility] Comment on above: Performed By: #### L 100.0100, L500.2500 ####[facility] [address] [place], [address] Calcium [Mass/Vol] 8.5 mg/dL Normal 7.6-11.[address] [facility] Comment on above: Performed By: #### L 100.0100, L500.2500 ####[facility] [address] [place], [address] Chloride [Moles/Vol] 106 mmol/L Normal 98-108 [facility] Comment on above: Performed By: #### L 100.0100, L500.2500 ####[facility] [address] [place], [address] CO2 [Moles/Vol] 21.6 mmol/L Normal 21.0-32.0 [facility] Comment on above: Performed By: #### L 100.0100, L500.2500 ####[facility] [address] [place], [address] Creatinine [Mass/Vol] 0.70 mg/dL Normal 0.70-1.20 [facility] Comment on above: Performed By: #### L 100.0100, L500.2500 ####[facility] [address] [place], [address] ECRCL 84.46 ml/min Normal 50-250 [facility] Comment on above: Performed By: #### L 100.0100, L500.2500 ####[facility] [address] [place], [address] GAP 11 Normal 5-15 [facility] Comment on above: Performed By: #### L 100.0100, L500.2500 ####[facility] [address] [place], [address] GFR/1.73 sq M.predicted among non-blacks MDRD (S/P/Bld) [Vol rate/Area] 88 mL/min/{1.73_m2} Normal >60 [facility] Comment on above: Result Comment: mL/m in/1.73m2 CKD-EPI Creatinine Equation (2020) Performed By: #### L 100.0100, L500.2500 ####[facility] [address] [place], [address] Glucose [Mass/Vol] 125 mg/dL High 70-[address] [facility] Comment on above: Performed By: #### L 100.0100, L500.2500 ####[facility] [address] [place], [address] Potassium [Moles/Vol] 3.7 mmol/L Normal 3.3-5.1 [facility] Comment on above: Performed By: #### L 100.0100, L500.2500 ####[facility] [address] [place], [address] Sodium [Moles/Vol] 139 mmol/L Normal 133-[address] [facility] Comment on above: Performed By: #### L 100.0100, L500.2500 ####[facility] [address] [place], [address] Urea nitrogen [Mass/Vol] 14 mg/dL Normal 4-19 [facility] Comment on above: Performed By: #### L 100.0100, L500.2500 ####[facility] [address] [place], [address] Basophil percentageOrdered B y: Amber Martino on 09-23-2024 Basophils/100 WBC (Bld) 0.3 % 0-1 [facility] CBC W/Diff, Automatedon Absolute Lymph 0.69 X10 3/uL Low 0.83-4.51 [facility] Comment on above: Performed By: #### L 100.0100, L500.2500 ####[facility] [address] [place], [address] Absolute Neut 2.7 X10 3/uL Normal 2.0-7.7 [facility] Comment on above: Performed By: #### L 100.0100, L500.2500 ####[facility] [address] [place], [address] Basophils/100 WBC (Bld) 0.3 % Normal 0-1 [facility] Comment on above: Performed By: #### L 100.0100, L500.2500 ####[facility] [address] [place], [address] Eosinophils/100 WBC (Bld) 1.5 % Normal 0-5 [facility] Comment on above: Performed By: #### L 100.0100, L500.2500 ####[facility] [address] [place], [address] Erythrocyte distribution width (RBC) [Ratio] 13.0 % Normal 11.6-14.6 [facility] Comment on above: Performed By: #### L 100.0100, L500.2500 ####[facility] [address] [place], [address] Hematocrit (Bld) [Volume fraction] 35.9 % Low 37-47 [facility] Comment on above: Performed By: #### L 100.0100, L500.2500 ####[facility] [address] [place], [address] Hemoglobin (Bld) [Mass/Vol] 11.9 g/dL Low 12.0-15.0 [facility] Comment on above: Performed By: #### L 100.0100, L500.2500 ####[facility] [address] [place], [address] IG% 0.300 Normal 0.0-0.9 [facility] Comment on above: Result Comment: IG% - Immature Granulocytes (promyelocytes, myelocytes andmetamyelocytes) > 1% indicates that a LEFT SHIFT is Present. Performed By: #### L 100.0100, L500.2500 ####[facility] [address] [place], [address] Lymphocytes/100 WBC (Bld) 17.6 % Low 19-41 [facility] Comment on above: Performed By: #### L 100.0100, L500.2500 ####[facility] [address] [place], [address] MCH (RBC) [Entitic mass] 29.4 pg Normal 27.0-32.0 [facility] Comment on above: Performed By: #### L 100.0100, L500.2500 ####[facility] [address] [place], [address] MCHC (RBC) [Mass/Vol] 33.1 g/dL Normal 32-36 [facility] Comment on above: Performed By: #### L 100.0100, L500.2500 ####[facility] [address] [place], [address] MCV (RBC) [Entitic vol] 88.6 fL Normal 81-99 [facility] Comment on above: Performed By: #### L 100.0100, L500.2500 ####[facility] [address] [place], [address] Monocytes/100 WBC (Bld) 12.7 % High 0-10 [facility] Comment on above: Performed By: #### L 100.0100, L500.2500 ####[facility] [address] [place], [address] Neutrophils/100 WBC (Bld) 67.6 % Normal 47-70 [facility] Comment on above: Performed By: #### L 100.0100, L500.2500 ####[facility] [address] [place], [address] Nucleated RBC (Bld) [#/Vol] 0 10*3/uL Normal 0-5 [facility] Comment on above: Performed By: #### L 100.0100, L500.2500 ####[facility] [address] [place], [address] Platelet mean volume (Bld) [Entitic vol] 12.3 fL High 6.2-12.0 [facility] Comment on above: Performed By: #### L 100.0100, L500.2500 ####[facility] [address] [place], [address] Platelets (Bld) [#/Vol] 169 10*3/uL Normal 150-450 [facility] Comment on above: Performed By: #### L 100.0100, L500.2500 ####[facility] [address] [place], [address] RBC (Bld) [#/Vol] 4.05 10*6/uL Low 4.2-5.4 [facility] Comment on above: Performed By: #### L 100.0100, L500.2500 ####[facility] [address] [place], [address] RDW SD 42.2 fl Normal 35.1-43.9 [facility] Comment on above: Performed By: #### L 100.0100, L500.2500 ####[facility] [address] [place], [address] WBC (Bld) [#/Vol] 3.9 10*3/uL Low 4.4-11.[address] [facility] Comment on above: Performed By: #### L 100.0100, L500.2500 ####[facility] [address] [place], [address] Carbon dioxide, total [Moles /volume] in Central venous bloodOrdered By: Amber Martino on 09-23-2024 CO2 [Moles/Vol] 21.6 mmol/L 21.0-32.0 [facility] Chloride assayOrdered By: Daniel Martino on 09-23-2024 Chloride [Moles/Vol] 106 mmol/L 98-108 [facility] Emergency Department Summary on 09-23-2024 Emergency Department Summary Normal [facility] Eosinophil percentageOrdered By: Amber Martino on 09-23-2024 Eosinophils/100 WBC (Bld) 1.5 % 0-5 [facility] Erythrocyte distribution wid th ratioOrdered By: Amber Martino on 09-23-2024 Erythrocyte distribution width (RBC) [Ratio] 13.0 % 11.6-14.6 [facility] Erythrocyte distribution wid th standard deviationOrdered By: Amber Martino on 09-23-2024 Erythrocyte distribution width (RBC) [Entitic vol] 42.2 fL 35.1-43.9 [facility] Erythrocyte distribution width (RBC) [Ratio] 42.2 fl 35.1-43.9 [facility] Estimation of creatinine kimberly aranceOrdered By: Amber Martino on 09-23-2024 Estimated Creatinine Clearance Calc 84.46 ml/min 50-250 [facility] GFR/1.73 sq M.predicted du g non-blacks MDRD (S/P/Bld) [Vol rate/Area]Ordered By: Amber Martino on 09-23-2024 Estimated GFR (MDRD) Non-Af Amer 88 >60 [facility] Comment on above: mL/min/1.73m2 CKD-EP I Creatinine Equation (2020) Glomerular filtration rate ( GFR) estimation/1.73 sq m using serum, plasma, or whole bOrdered By: Amber Martino on 09-23-2024 GFR/1.73 sq M.predicted among non-blacks MDRD (S/P/Bld) [Vol rate/Area] 88 mL/min/{1.73_m2} >60 [facility] Comment on above: mL/min/1.73m2 CKD-EP I Creatinine Equation (2020) Hematocrit Auto (Bld) [Volum e fraction]Ordered By: Amber Martino on 09-23-2024 Hematocrit (Bld) [Volume fraction] 35.9 % Low 37-47 [facility] Hemoglobin measurementOrdere d By: Amber Martino on 09-23-2024 Hemoglobin (Bld) [Mass/Vol] 11.9 g/dL Low 12.0-15.0 [facility] Immature granulocytes/100 WB C Auto (Bld)Ordered By: Amber Martino on 09-23-2024 Immature granulocytes/100 WBC (Bld) 0.300 % 0.0-0.9 [facility] Comment on above: IG% - Immature Granu locytes (promyelocytes, myelocytes and metamyelocytes) > 1% indicates that a LEFT SHIFT is Present. Lower GI hemoglobin IA Ql (S tl)Ordered By: Amber Martino on 09-23-2024 Stool Occult Blood (RABIA) Positive Abnormal [facility] Lymphocytes Auto (Unsp spec) [#/Vol]Ordered By: Amber Martino on 09-23-2024 Lymphocytes (Bld) [#/Vol] 0.69 10*3/uL Low 0.83-4.51 [facility] Lymphocytes/100 WBC Auto (Un sp spec)Ordered By: Amber Martino on 09-23-2024 Lymphocytes/100 WBC (Bld) 17.6 % Low 19-41 [facility] MCV (mean corpuscular volume ) determinationOrdered By: Amber Martino on 09-23-2024 MCV (RBC) [Entitic vol] 88.6 fL 81-99 [facility] Mean corpuscular hemoglobin (MCH) determinationOrdered By: Amber Martino on 09-23-2024 MCH (RBC) [Entitic mass] 29.4 pg 27.0-32.0 [facility] Mean corpuscular hemoglobin concentration (MCHC) determinationOrdered By: Amber Martino on 09-23-2024 MCHC (RBC) [Mass/Vol] 33.1 g/dL 32-36 [facility] Mean platelet volume determi nationOrdered By: Amber Martino on 09-23-2024 Platelet mean volume (Bld) [Entitic vol] 12.3 fL High 6.2-12.0 [facility] Monocyte percentageOrdered B y: Amber Martino on 09-23-2024 Monocytes/100 WBC (Bld) 12.7 % High 0-10 [facility] Neutrophil percentageOrdered By: Amber Martino on 09-23-2024 Neutrophils/100 WBC (Bld) 67.6 % 47-70 [facility] Nucleated red blood cell per centageOrdered By: Amber Martino on 09-23-2024 Nucleated RBC/100 WBC (Bld) [Ratio] 0 % 0-5 [facility] Platelet countOrdered By: Daniel Martino on 09-23-2024 Platelets (Bld) [#/Vol] 169 10*3/uL 150-450 [facility] Potassium (Unsp spec) [Mass/ Vol]Ordered By: Amber Martino on 09-23-2024 Potassium [Moles/Vol] 3.7 mmol/L 3.3-5.1 [facility] Potassium measurement (mass/ volume)Ordered By: Amber Martino on 09-23-2024 Potassium (Unsp spec) [Mass/Vol] 3.7 mmol/L 3.3-5.1 [facility] RBC Auto (Bld) [#/Vol]Ordere d By: Amber Martino on 09-23-2024 RBC (Bld) [#/Vol] 4.05 10*6/uL Low 4.2-5.4 [facility] Serum creatinine measurement (mass/volume)Ordered By: Amber Martino on 09-23-2024 Creatinine [Mass/Vol] 0.70 mg/dL 0.70-1.20 [facility] Serum glucose measurement (m ass/volume)Ordered By: Amber Martino on 09-23-2024 Glucose [Mass/Vol] 125 mg/dL High 70-[address] [facility] Serum or plasma calcium zora urement (mass/volume)Ordered By: Amber Martino on 09-23-2024 Calcium [Mass/Vol] 8.5 mg/dL 7.6-11.[address] [facility] Serum or plasma urea nitroge n measurement (mass/volume)Ordered By: Amber Martino on 09-23-2024 Urea nitrogen [Mass/Vol] 14 mg/dL 4-19 [facility] Sodium levelOrdered By: Amber Martino on 09-23-2024 Sodium [Moles/Vol] 139 mmol/L 133-[address] [facility] Stool Occult Blood iFOBon STOB Positive Normal [facility] Comment on above: Performed By: #### M 100.7900 ####[facility] [address] [place], [place], [id number] Stool gastrointestinal hemog lobin detection by immunologic methodOrdered By: Amber Martino on 09-23-2024 Lower GI hemoglobin IA Ql (Stl) Positive Abnormal [facility] White blood cell (WBC) count Ordered By: Amber Martino on 09-23-2024 WBC (Bld) [#/Vol] 3.9 10*3/uL Low 4.4-11.[address] [facility] Urine Cultureon 09-22-2024 [facility] Mixed Gram Positive Organisms [place] Count 11,000-25,000 MIX[facility] Mixed contaminants. Submit a new specimen if indicated. Normal [facility] Comment on above: Performed By: #### M 100.2200 ####[facility] [address] [place], [place], [id number] Anion gap in Serum or Plasma Ordered By: Holland Sanches on 09-21-2024 Anion gap [Moles/Vol] 14 mmol/L 5-15 [facility] BUN/creatinine ratioOrdered By: Holland Sanches on 09-21-2024 Urea nitrogen/Creatinine [Mass ratio] 29.0 mg/mg High 10- [facility] Basic Metabolic Profile (BMP )on 09-21-2024 BUN/CRE 29.0 RATIO High - [facility] Comment on above: Performed By: #### L 500.2500 ####[facility] [address] [place], [address] Calcium [Mass/Vol] 8.3 mg/dL Normal 7.6-11.[address] [facility] Comment on above: Performed By: #### L 500.2500 ####[facility] [address] [place], [address] Chloride [Moles/Vol] 97 mmol/L Low 98-108 [facility] Comment on above: Performed By: #### L 500.2500 ####[facility] [address] [place], [address] CO2 [Moles/Vol] 20.7 mmol/L Low 21.0-32.0 [facility] Comment on above: Performed By: #### L 500.2500 ####[facility] [address] [place], [address] Creatinine [Mass/Vol] 1.24 mg/dL High 0.70-1.20 [facility] Comment on above: Performed By: #### L 500.2500 ####[facility] [address] [place], [address] ECRCL 54.31 ml/min Normal 50-250 [facility] Comment on above: Performed By: #### L 500.2500 ####[facility] [address] [place], [address] GAP 14 Normal -15 [facility] Comment on above: Performed By: #### L 500.2500 ####[facility] [address] [place], [address] GFR/1.73 sq M.predicted among non-blacks MDRD (S/P/Bld) [Vol rate/Area] 44 mL/min/{1.73_m2} Low >60 [facility] Comment on above: Result Comment: mL/m in/1.73m2 CKD-EPI Creatinine Equation (2020) Performed By: #### L 500.2500 ####[facility] [address] [place], [address] Glucose [Mass/Vol] 433 mg/dL High 70-[address] [facility] Comment on above: Performed By: #### L 500.2500 ####[facility] [address] [place], [address] Potassium [Moles/Vol] 3.8 mmol/L Normal 3.3-5.1 [facility] Comment on above: Performed By: #### L 500.2500 ####[facility] [address] [place], [address] Sodium [Moles/Vol] 132 mmol/L Low 133-[address] [facility] Comment on above: Performed By: #### L 500.2500 ####[facility] [address] [place], [address] Urea nitrogen [Mass/Vol] 36 mg/dL High 4-19 [facility] Comment on above: Performed By: #### L 500.2500 ####[facility] [address] [place], [address] Bedside Glucoseon 09-21-2024 FINGERSTICK GLU 297 mg/dL High 74-106 [facility] Comment on above: Result Comment: MERCEDES SUBRAMANIAN OF PATIENT CARE PER NURSING PROTOCOL Performed By: #### L 501.080 ####[facility] [address] [place], [address] FINGERSTICK GLU 428 mg/dL High 74-106 [facility] Comment on above: Result Comment: MERCEDES GEMENT OF PATIENT CARE PER NURSING PROTOCOL Performed By: #### L 501.080 ####[facility] [address] [place], [address] FINGERSTICK GLU 392 mg/dL High 74-106 [facility] Comment on above: Result Comment: MERCEDES GEMENT OF PATIENT CARE PER NURSING PROTOCOL Performed By: #### L 501.080 ####[facility] [address] [place], [address] CNPNon 09-21-2024 CNPN Normal [facility] Carbon dioxide, total [Moles /volume] in Central venous bloodOrdered By: Holland Sanches on 09-21-2024 CO2 [Moles/Vol] 20.7 mmol/L Low 21.0-32.0 [facility] Chloride assayOrdered By: Michael Sanches on 09-21-2024 Chloride [Moles/Vol] 97 mmol/L Low 98-108 [facility] Emergency Department Summary on 09-21-2024 Emergency Department Summary Normal [facility] Estimation of creatinine kimberly aranceOrdered By: Holland Sanches on 09-21-2024 Estimated Creatinine Clearance Calc 54.31 ml/min 50-250 [facility] GFR/1.73 sq M.predicted du g non-blacks MDRD (S/P/Bld) [Vol rate/Area]Ordered By: Holland Sanches on 09-21-2024 Estimated GFR (MDRD) Non-Af Amer 44 Low >60 [facility] Comment on above: mL/min/1.73m2 CKD-EP I Creatinine Equation (2020) Glomerular filtration rate ( GFR) estimation/1.73 sq m using serum, plasma, or whole bOrdered By: Holland Sanches on 09-21-2024 GFR/1.73 sq M.predicted among non-blacks MDRD (S/P/Bld) [Vol rate/Area] 44 mL/min/{1.73_m2} Low >60 [facility] Comment on above: mL/min/1.73m2 CKD-EP I Creatinine Equation (2020) [facility] deOrdered By: Holland Sanches on 09-21-2024 Bedside Glucose (Misc Panel) 297 mg/dL High 74-106 [facility] Comment on above: MANAGEMENT OF PATIEN T CARE PER NURSING PROTOCOL Glucose [Mass/Vol] 297 mg/dL High 74-[address] [facility] Comment on above: MANAGEMENT OF PATIEN T CARE PER NURSING PROTOCOL Potassium (Unsp spec) [Mass/ Vol]Ordered By: Holland Sanches on 09-21-2024 Potassium [Moles/Vol] 3.8 mmol/L 3.3-5.1 [facility] Potassium measurement (mass/ volume)Ordered By: Holland Sanches on 09-21-2024 Potassium (Unsp spec) [Mass/Vol] 3.8 mmol/L 3.3-5.1 [facility] Serum creatinine measurement (mass/volume)Ordered By: Holland Sanches on 09-21-2024 Creatinine [Mass/Vol] 1.24 mg/dL High 0.70-1.20 [facility] Serum glucose measurement (m ass/volume)Ordered By: Holland Sanches on 09-21-2024 Glucose [Mass/Vol] 433 mg/dL High 70-[address] [facility] Serum or plasma calcium zora urement (mass/volume)Ordered By: Holland Sanches on 09-21-2024 Calcium [Mass/Vol] 8.3 mg/dL 7.6-11.[address] [facility] Serum or plasma urea nitroge n measurement (mass/volume)Ordered By: Holland Sanches on 09-21-2024 Urea nitrogen [Mass/Vol] 36 mg/dL High 4-19 [facility] Sodium levelOrdered By: Frank Sanches on 09-21-2024 Sodium [Moles/Vol] 132 mmol/L Low 133-[address] [facility] Abdomen/Pelvis W IV Cont ONL Yon 09-20-2024 Abdomen/Pelvis W IV Cont ONLY Normal [facility] Absolute lymphocyte countOrd ered By: Lars Dahl on 09-20-2024 Lymphocytes Auto (Unsp spec) [#/Vol] 0.35 10*3/uL Low 0.83-4.51 [facility] Absolute neutrophil countOrd ered By: Lars Dahl on 09-20-2024 Neutrophils (Bld) [#/Vol] 8.5 10*3/uL High 2.0-7.7 [facility] Amorphous sediment detection in urine sediment by light microscopyOrdered By: Lars Dahl on 09-20-2024 Amorphous sediment LM Ql (Urine sed) 1+ URATE [facility] Anion gap in Serum or Plasma Ordered By: Lars Dahl on 09-20-2024 Anion gap [Moles/Vol] 14 mmol/L 5-15 [facility] Automated lymphocyte count a s percentage of total leukocytesOrdered By: Lars Dahl on 09-20-2024 Lymphocytes/100 WBC Auto (Unsp spec) 3.7 % Low 19-41 [facility] BUN/creatinine ratioOrdered By: Lars Dahl on 09-20-2024 Urea nitrogen/Creatinine [Mass ratio] 32.4 mg/mg High 10-20 [facility] Basophil percentageOrdered B y: Lars Dahl on 09-20-2024 Basophils/100 WBC (Bld) 0.2 % 0-1 [facility] Bedside Glucoseon 09-20-2024 FINGERSTICK GLU 128 mg/dL High 74-106 [facility] Comment on above: Result Comment: MERCEDES SUBRAMANIAN OF PATIENT CARE PER NURSING PROTOCOL Performed By: #### L 501.080 ####[facility] [address] [place], [address] Bilirubin Test strip Ql (U)O rdered By: Lars Dahl on 09-20-2024 Bilirubin Ql (U) 1 mg/dL High Negative [facility] Comment on above: COLOR OF URINE MAY A FFECT DIPSTICK RESULTS. Bilirubin, totalOrdered By: Lars Dahl on 09-20-2024 Bilirubin [Mass/Vol] 1.02 mg/dL 0.00-1.30 [facility] CBC W/Diff, Automatedon Absolute Lymph 0.35 X10 3/uL Low 0.83-4.51 [facility] Comment on above: Performed By: #### L 500.4050, L100.0100, L501.2450 ####[facility] [address] [place], [address] Absolute Neut 8.5 X10 3/uL High 2.0-7.7 [facility] Comment on above: Performed By: #### L 500.4050, L100.0100, L501.2450 ####[facility] [address] [place], [address] Basophils/100 WBC (Bld) 0.2 % Normal 0-1 [facility] Comment on above: Performed By: #### L 500.4050, L100.0100, L501.2450 ####[facility] [address] [place], [address] Eosinophils/100 WBC (Bld) 1.2 % Normal 0-5 [facility] Comment on above: Performed By: #### L 500.4050, L100.0100, L501.2450 ####[facility] [address] [place], [address] Erythrocyte distribution width (RBC) [Ratio] 12.8 % Normal 11.6-14.6 [facility] Comment on above: Performed By: #### L 500.4050, L100.0100, L501.2450 ####[facility] [address] [place], [address] Hematocrit (Bld) [Volume fraction] 41.4 % Normal 37-47 [facility] Comment on above: Performed By: #### L 500.4050, L100.0100, L501.2450 ####[facility] [address] [place], [address] Hemoglobin (Bld) [Mass/Vol] 13.8 g/dL Normal 12.0-15.0 [facility] Comment on above: Performed By: #### L 500.4050, L100.0100, L501.2450 ####[facility] [address] [place], [address] IG% 0.200 Normal 0.0-0.9 [facility] Comment on above: Result Comment: IG% - Immature Granulocytes (promyelocytes, myelocytes andmetamyelocytes) > 1% indicates that a LEFT SHIFT is Present. Performed By: #### L 500.4050, L100.0100, L501.2450 ####[facility] [address] [place], [address] Lymphocytes/100 WBC (Bld) 3.7 % Low 19-41 [facility] Comment on above: Performed By: #### L 500.4050, L100.0100, L501.2450 ####[facility] [address] [place], [address] MCH (RBC) [Entitic mass] 29.8 pg Normal 27.0-32.0 [facility] Comment on above: Performed By: #### L 500.4050, L100.0100, L501.2450 ####[facility] [address] [place], [address] MCHC (RBC) [Mass/Vol] 33.3 g/dL Normal 32-36 [facility] Comment on above: Performed By: #### L 500.4050, L100.0100, L501.2450 ####[facility] [address] [place], [address] MCV (RBC) [Entitic vol] 89.4 fL Normal 81-99 [facility] Comment on above: Performed By: #### L 500.4050, L100.0100, L501.2450 ####[facility] [address] [place], [address] Monocytes/100 WBC (Bld) 4.5 % Normal 0-10 [facility] Comment on above: Performed By: #### L 500.4050, L100.0100, L501.2450 ####[facility] [address] [place], [address] Neutrophils/100 WBC (Bld) 90.2 % High 47-70 [facility] Comment on above: Performed By: #### L 500.4050, L100.0100, L501.2450 ####[facility] [address] [place], [address] Nucleated RBC (Bld) [#/Vol] 0 10*3/uL Normal 0-5 [facility] Comment on above: Performed By: #### L 500.4050, L100.0100, L501.2450 ####[facility] [address] [place], [address] Platelet mean volume (Bld) [Entitic vol] 12.6 fL High 6.2-12.0 [facility] Comment on above: Performed By: #### L 500.4050, L100.0100, L501.2450 ####[facility] [address] [place], [address] Platelets (Bld) [#/Vol] 188 10*3/uL Normal 150-450 [facility] Comment on above: Performed By: #### L 500.4050, L100.0100, L501.2450 ####[facility] [address] [place], [address] RBC (Bld) [#/Vol] 4.63 10*6/uL Normal 4.2-5.4 [facility] Comment on above: Performed By: #### L 500.4050, L100.0100, L501.2450 ####[facility] [address] [place], [address] RDW SD 41.9 fl Normal 35.1-43.9 [facility] Comment on above: Performed By: #### L 500.4050, L100.0100, L501.2450 ####[facility] [address] [place], [address] WBC (Bld) [#/Vol] 9.4 10*3/uL Normal 4.4-11.[address] [facility] Comment on above: Performed By: #### L 500.4050, L100.0100, L501.2450 ####[facility] [address] [place], [address] Carbon dioxide, total [Moles /volume] in Central venous bloodOrdered By: Lars Dahl on 09-20-2024 CO2 [Moles/Vol] 22.7 mmol/L 21.0-32.0 [facility] Chloride assayOrdered By: Lazaro Dahl on 09-20-2024 Chloride [Moles/Vol] 101 mmol/L 98-108 [facility] Comprehensive Metabolic Prof ilon 09-20-2024 Albumin [Mass/Vol] 3.9 g/dL Normal 3.4-4.[address] [facility] Comment on above: Performed By: #### L 500.4050, L100.0100, L501.2450 ####[facility] [address] [place], [address] Albumin/Globulin [Mass ratio] 1.3 {ratio} Normal 0.9-2.4 [facility] Comment on above: Performed By: #### L 500.4050, L100.0100, L501.2450 ####[facility] [address] [place], [address] ALK PHOS 78 U/L Normal 35-104 [facility] Comment on above: Performed By: #### L 500.4050, L100.0100, L501.2450 ####[facility] [address] [place], [address] ALT [Catalytic activity/Vol] 17 U/L Normal <=34 [facility] Comment on above: Performed By: #### L 500.4050, L100.0100, L501.2450 ####[facility] [address] [place], [address] AST [Catalytic activity/Vol] 22 U/L Normal <=31 [facility] Comment on above: Performed By: #### L 500.4050, L100.0100, L501.2450 ####[facility] [address] [place], [address] Bilirubin [Mass/Vol] 1.02 mg/dL Normal 0.00-1.30 [facility] Comment on above: Performed By: #### L 500.4050, L100.0100, L501.2450 ####[facility] [address] [place], [address] BUN/CRE 32.4 RATIO High 10-20 [facility] Comment on above: Performed By: #### L 500.4050, L100.0100, L501.2450 ####[facility] [address] [place], [address] Calcium [Mass/Vol] 9.1 mg/dL Normal 7.6-11.[address] [facility] Comment on above: Performed By: #### L 500.4050, L100.0100, L501.2450 ####[facility] [address] [place], [address] Chloride [Moles/Vol] 101 mmol/L Normal 98-108 [facility] Comment on above: Performed By: #### L 500.4050, L100.0100, L501.2450 ####[facility] [address] [place], [address] CO2 [Moles/Vol] 22.7 mmol/L Normal 21.0-32.0 [facility] Comment on above: Performed By: #### L 500.4050, L100.0100, L501.2450 ####[facility] [address] [place], [address] Creatinine [Mass/Vol] 0.86 mg/dL Normal 0.70-1.20 [facility] Comment on above: Performed By: #### L 500.4050, L100.0100, L501.2450 ####[facility] [address] [place], [address] GAP 14 Normal 5-15 [facility] Comment on above: Performed By: #### L 500.4050, L100.0100, L501.2450 ####[facility] [address] [place], [address] GFR/1.73 sq M.predicted among non-blacks MDRD (S/P/Bld) [Vol rate/Area] 69 mL/min/{1.73_m2} Normal >60 [facility] Comment on above: Result Comment: mL/m in/1.73m2 CKD-EPI Creatinine Equation (2020) Performed By: #### L 500.4050, L100.0100, L501.2450 ####[facility] [address] [place], [address] Globulin (S) [Mass/Vol] 2.9 g/dL Normal 2.2-4.2 [facility] Comment on above: Performed By: #### L 500.4050, L100.0100, L501.2450 ####[facility] [address] [place], [address] Glucose [Mass/Vol] 153 mg/dL High 70-[address] [facility] Comment on above: Performed By: #### L 500.4050, L100.0100, L501.2450 ####[facility] [address] [place], [address] Potassium [Moles/Vol] 4.1 mmol/L Normal 3.3-5.1 [facility] Comment on above: Performed By: #### L 500.4050, L100.0100, L501.2450 ####[facility] [address] [place], [address] Sodium [Moles/Vol] 138 mmol/L Normal 133-[address] [facility] Comment on above: Performed By: #### L 500.4050, L100.0100, L501.2450 ####[facility] [address] [place], [address] T PROT 6.7 g/dL Normal 5.9-8.4 [facility] Comment on above: Performed By: #### L 500.4050, L100.0100, L501.2450 ####[facility] [address] [place], [address] Urea nitrogen [Mass/Vol] 28 mg/dL High 4-19 [facility] Comment on above: Performed By: #### L 500.4050, L100.0100, L501.2450 ####[facility] [address] [place], [address] Emergency Department Summary on 09-20-2024 Emergency Department Summary Normal [facility] Eosinophil percentageOrdered By: Lars Dahl on 09-20-2024 Eosinophils/100 WBC (Bld) 1.2 % 0-5 [facility] Epithelial cells.squamous LM Ql (Urine sed)Ordered By: Lars Dahl on 09-20-2024 Epithelial cells.squamous LM.HPF (Urine sed) [#/Area] 0 /[HPF] 5-10 [facility] Erythrocyte distribution wid th ratioOrdered By: Lars Dahl on 09-20-2024 Erythrocyte distribution width (RBC) [Ratio] 12.8 % 11.6-14.6 [facility] Erythrocyte distribution wid th standard deviationOrdered By: Lars Dahl on 09-20-2024 Erythrocyte distribution width (RBC) [Entitic vol] 41.9 fL 35.1-43.9 [facility] Erythrocyte distribution width (RBC) [Ratio] 41.9 fl 35.1-43.9 [facility] GFR/1.73 sq M.predicted du g non-blacks MDRD (S/P/Bld) [Vol rate/Area]Ordered By: Lars Dahl on 09-20-2024 Estimated GFR (MDRD) Non-Af Amer 69 >60 [facility] Comment on above: mL/min/1.73m2 CKD-EP I Creatinine Equation (2020) Glomerular filtration rate ( GFR) estimation/1.73 sq m using serum, plasma, or whole bOrdered By: Lars Dahl on 09-20-2024 GFR/1.73 sq M.predicted among non-blacks MDRD (S/P/Bld) [Vol rate/Area] 69 mL/min/{1.73_m2} >60 [facility] Comment on above: mL/min/1.73m2 CKD-EP I Creatinine Equation (2020) Glucose Ql (U)Ordered By: Lazaro Dahl on 09-20-2024 Urine Glucose (UA) Normal mg/dl Normal [facility] Glucose measurement at [facility] deOrdered By: Lars Dahl on 09-20-2024 Bedside Glucose (Misc Panel) 128 mg/dL High 74-106 [facility] Comment on above: MANAGEMENT OF PATIEN T CARE PER NURSING PROTOCOL Glucose [Mass/Vol] 128 mg/dL High 74-[address] [facility] Comment on above: MANAGEMENT OF PATIEN T CARE PER NURSING PROTOCOL Hematocrit Auto (Bld) [Volum e fraction]Ordered By: Lars Dahl on 09-20-2024 Hematocrit (Bld) [Volume fraction] 41.4 % 37-47 [facility] Hemoglobin measurementOrdere d By: Lars Dahl on 09-20-2024 Hemoglobin (Bld) [Mass/Vol] 13.8 g/dL 12.0-15.0 [facility] Immature granulocytes/100 WB C Auto (Bld)Ordered By: Lars Dahl on 09-20-2024 Immature granulocytes/100 WBC (Bld) 0.200 % 0.0-0.9 [facility] Comment on above: IG% - Immature Granu locytes (promyelocytes, myelocytes and metamyelocytes) > 1% indicates that a LEFT SHIFT is Present. Influenza virus A and B and SARS-CoV-2 (COVID-19) and Respiratory syncytial virus RNAOrdered By: Lars Dahl on 09-20-2024 SARS-CoV-2 (COVID-19) RNA RAYMOND+probe Ql (Unsp spec) [facility] SARS-CoV-2 (COVID-19) RNA RAYMOND+probe Ql (Unsp spec) [facility] Ketones Test strip Ql (U)Ord ered By: Lars Dahl on 09-20-2024 Ketones Ql (U) 5 mg/dl High Negative [facility] Laboratory - Chemistry and C hemistry - challengeOrdered By: Lars Dahl on 09-20-2024 AST [Catalytic activity/Vol] 22 U/L <32 [facility] Lipaseon 09-20-2024 Lipase [Catalytic activity/Vol] 12 U/L Low 13-75 [facility] Comment on above: Result Comment: Plea se note:LIPASE revised reference range effective 22.New Lipase methodology. Expected to produce lower valuesthan the previous assay method.NEW Reference Range: 13 - 75 U/L Performed By: #### L 500.4050, L100.0100, L501.2450 ####[facility] [address] [place], [place], [id number] Lipase measurementOrdered By : Lars Dahl on 09-20-2024 Lipase [Catalytic activity/Vol] 12 U/L Low 13-75 [facility] Comment on above: Please note:LIPASE r evised reference range effective 22. New Lipase methodology. Expected to produce lower values than the previous assay method. NEW Reference Range: 13 - 75 U/L Lymphocytes Auto (Unsp spec) [#/Vol]Ordered By: Lars Dahl on 09-20-2024 Lymphocytes (Bld) [#/Vol] 0.35 10*3/uL Low 0.83-4.51 [facility] Lymphocytes/100 WBC Auto (Un sp spec)Ordered By: Lars Dahl on 09-20-2024 Lymphocytes/100 WBC (Bld) 3.7 % Low 19-41 [facility] M100.678on 09-20-2024 M100.678 Pending SARS-CoV-2 (COVID 19) Negative INFLUENZA A Negative INFLUENZA B Negative RSV PCR Negative Normal [facility] Comment on above: Performed By: #### M 100.618 ####[facility] [address] [place], [address] MCV (mean corpuscular volume ) determinationOrdered By: Lars Dahl on 09-20-2024 MCV (RBC) [Entitic vol] 89.4 fL 81-99 [facility] Mean corpuscular hemoglobin (MCH) determinationOrdered By: Lars Dahl on 09-20-2024 MCH (RBC) [Entitic mass] 29.8 pg 27.0-32.0 [facility] Mean corpuscular hemoglobin concentration (MCHC) determinationOrdered By: Lars Dahl on 09-20-2024 MCHC (RBC) [Mass/Vol] 33.3 g/dL 32-36 [facility] Mean platelet volume determi nationOrdered By: Lars Dahl on 09-20-2024 Platelet mean volume (Bld) [Entitic vol] 12.6 fL High 6.2-12.0 [facility] Microscopic analysis of urin e for red blood cells (RBC)Ordered By: Lars Dahl on 09-20-2024 Microscopic analysis of urine for red blood cells (RBC) 0 SEEN /hpf 0-5 [facility] Urine RBC 0 SEEN /hpf 0-5 [facility] Monocyte percentageOrdered B y: Lars Dahl on 09-20-2024 Monocytes/100 WBC (Bld) 4.5 % 0-10 [facility] Mucus LM Ql (Urine sed)Order ed By: Lars Dahl on 09-20-2024 Mucus Ql (Urine sed) 0 SEEN /hpf [facility] Neutrophil percentageOrdered By: Lars Dahl on 09-20-2024 Neutrophils/100 WBC (Bld) 90.2 % High 47-70 [facility] Nitrite Test strip Ql (U)Ord ered By: Lars Dahl on 09-20-2024 Nitrite Ql (U) Negative Negative [facility] No Panel InformationOrdered By: Lars Dahl on 09-20-2024 22 U/L <32 [facility] Nucleated red blood cell per centageOrdered By: Lars Dahl on 09-20-2024 Nucleated RBC/100 WBC (Bld) [Ratio] 0 % 0-5 [facility] Platelet countOrdered By: Lazaro Dahl on 09-20-2024 Platelets (Bld) [#/Vol] 188 10*3/uL 150-450 [facility] Potassium (Unsp spec) [Mass/ Vol]Ordered By: Lars Dahl on 09-20-2024 Potassium [Moles/Vol] 4.1 mmol/L 3.3-5.1 [facility] Potassium measurement (mass/ volume)Ordered By: Lars Dahl on 09-20-2024 Potassium (Unsp spec) [Mass/Vol] 4.1 mmol/L 3.3-5.1 [facility] Protein Test strip Ql (U)Ord ered By: Lars Dahl on 09-20-2024 Protein Ql (U) 30 mg/dl High Negative [facility] RBC Auto (Bld) [#/Vol]Ordere d By: Lars Dahl on 09-20-2024 RBC (Bld) [#/Vol] 4.63 10*6/uL 4.2-5.4 [facility] Serum creatinine measurement (mass/volume)Ordered By: Lars Dahl on 09-20-2024 Creatinine [Mass/Vol] 0.86 mg/dL 0.70-1.20 [facility] Serum globulin measurementOr dered By: Lars Dahl on 09-20-2024 Globulin (S) [Mass/Vol] 2.9 g/dL 2.2-4.2 [facility] Serum glucose measurement (m ass/volume)Ordered By: Lars Dahl on 09-20-2024 Glucose [Mass/Vol] 153 mg/dL High 70-[address] [facility] Serum or plasma alanine ramírez otransferase (ALT) measurementOrdered By: Lars Dahl on 09-20-2024 ALT [Catalytic activity/Vol] 17 U/L <35 [facility] Serum or plasma albumin zora urement (mass/volume)Ordered By: Lars Dahl on 09-20-2024 Albumin [Mass/Vol] 3.9 g/dL 3.4-4.[address] [facility] Serum or plasma albumin/glob ulin mass ratioOrdered By: Lars Dahl on 09-20-2024 Albumin/Globulin [Mass ratio] 1.3 {ratio} 0.9-2.4 [facility] Serum or plasma alkaline dhiraj sphatase measurementOrdered By: Lars Dahl on 09-20-2024 ALP [Catalytic activity/Vol] 78 U/L 35-104 [facility] Serum or plasma calcium zora urement (mass/volume)Ordered By: Lars Dahl on 09-20-2024 Calcium [Mass/Vol] 9.1 mg/dL 7.6-11.[address] [facility] Serum or plasma urea nitroge n measurement (mass/volume)Ordered By: Lars Dahl on 09-20-2024 Urea nitrogen [Mass/Vol] 28 mg/dL High 4-19 [facility] Sodium levelOrdered By: Jorge Dahl on 09-20-2024 Sodium [Moles/Vol] 138 mmol/L 133-[address] [facility] Squamous epithelial cells de tection in urine sediment by light microscopyOrdered By: Lars Dahl on 09-20-2024 Epithelial cells.squamous LM Ql (Urine sed) 0-5 SEEN /hpf 5-10 [facility] Total proteinOrdered By: Davion Dahl on 09-20-2024 Protein [Mass/Vol] 6.7 g/dL 5.9-8.[address] [facility] Urinalysis, Completeon 09-20 AMORPHOUS 1+ URATE Normal [facility] Comment on above: Order Comment: CLEAN CATCH Performed By: #### L 400.0001 ####[facility] [address] [place], [address] EPI,SQUAMOUS 0-5 SEEN Normal 5-10 [facility] Comment on above: Order Comment: CLEAN CATCH Performed By: #### L 400.0001 ####[facility] [address] [place], [address] RBC 0 SEEN Normal 0-5 [facility] Comment on above: Order Comment: CLEAN CATCH Performed By: #### L 400.0001 ####[facility] [address] [place], [address] WBC 25-50 SEEN Normal 0-5 [facility] Comment on above: Order Comment: CLEAN CATCH Performed By: #### L 400.0001 ####[facility] [address] [place], [address] BACTERIA 0 SEEN Normal None Seen [facility] Comment on above: Order Comment: CLEAN CATCH Performed By: #### L 400.0001 ####[facility] [address] [place], [address] Mucus Ql (Urine sed) 0 SEEN Normal [facility] Comment on above: Order Comment: CLEAN CATCH Performed By: #### L 400.0001 ####[facility] [address] [place], [place], [address] Urine blood detectionOrdered By: Lars Dahl on 09-20-2024 Urine Occult Blood Negative Negative [facility] Urine clarityOrdered By: Davion Dahl on 09-20-2024 Clarity (U) Sl. Cloudy Clear [facility] Urine color determinationOrd ered By: Lars Dahl on 09-20-2024 Color (U) Yellow Yellow [facility] Urine cultureOrdered By: Davion Dahl on 09-20-2024 Bacteria identified Cx Nom (U) Positive Abnormal [facility] Urine glucose detectionOrder ed By: Lars Dahl on 09-20-2024 Glucose Ql (U) Normal mg/dl Normal [facility] Urine leukocyte esterase det ection by dipstickOrdered By: Lars Dahl on 09-20-2024 Leukocyte esterase Test strip Ql (U) 500 /ul High Negative [facility] Urine pHOrdered By: Lars laura on 09-20-2024 pH (U) 6.0 [pH] 5.0 - 8.0 [facility] Urine sediment bacteria coun t by microscopy (number/high power field)Ordered By: Lars Dahl on 09-20-2024 Bacteria LM.HPF (Urine sed) [#/Area] 0 /[HPF] None Seen [facility] [facility] Urine specific gravity measu rementOrdered By: Lars Dahl on 09-20-2024 Specific gravity (U) [Rel density] 1.025 1.002-1.030 [facility] Urine urobilinogen measureme ntOrdered By: Lars Dahl on 09-20-2024 Urobilinogen Ql (U) Normal mg/dl Normal [facility] Urobilinogen Ql (U)Ordered B y: Lars Dahl on 09-20-2024 Urine Urobilinogen Normal mg/dl Normal [facility] White blood cell (WBC) count Ordered By: Lars Dahl on 09-20-2024 WBC (Bld) [#/Vol] 9.4 10*3/uL 4.4-11.[address] [facility] White blood cell countOrdere d By: Lars Dahl on 09-20-2024 Urine WBC 25-50 SEEN /hpf 0-5 [facility] White blood cell count 25-50 SEEN /hpf 0-5 [facility] CNPNon 09-10-2024 CNPN Normal [facility] CNPNon 09-06-2024 CNPN Normal [facility] CNPNon 09-04-2024 CNPN Normal [facility] ALBUMIN/CREATININE RATIO, UR INEon 08-20-2024 Albumin DL <= 20 mg/L (U) [Mass/Vol] mg/dL Normal [facility] Comment on above: Order Comment: Speci men Type: URINE SPECIMENOrdering Facility: [facility] Address: [address] [place] [address] Performed By: #### U ACR ####[facility] [id number] [facility] [id number] [place] [address] [place] Albumin/Creatinine (U) [Mass ratio] Normal [facility] Comment on above: Order Comment: Speci men Type: URINE SPECIMENOrdering Facility: [facility] Address: [address] [place] [address] Result Comment: Not calculatedAdult Male and Female Nephrotic Criteria:<30 mg/g is considered normal to mildly knscalcvt68-038 mg/g is considered moderately increased>300 mg/g is considered severely increasedKDIGO. (2013). KDIGO 2012 Clinical Practice Guideline for the Evaluation and Management of Chronic Kidney Disease. Official Journal of the International Society of Nephrology, 3(1), 1-150. Performed By: #### U ACR ####[facility] [id number] [place] [id number] [place] Creatinine (U) [Mass/Vol] 24.5 mg/dL Normal 20.0-300.0 [facility] Comment on above: Order Comment: Speci men Type: URINE SPECIMENOrdering Facility: [facility] Address: [address] [place] [address] Performed By: #### U ACR ####[facility] [id number] [place] [address] [place] Comprehensive metabolic 2000 panelon 08-20-2024 Albumin [Mass/Vol] 4.2 g/dL Normal 3.9-4.9 [facility] Comment on above: Order Comment: Speci men Type: BLOOD SPECIMENOrdering Facility: [facility] Address: [address] [place] [address] Performed By: #### 2 4323-8 ####[facility] [id number] [place] [address] [place] ALP [Catalytic activity/Vol] 83 U/L Normal 34-123 [facility] Comment on above: Order Comment: Speci men Type: BLOOD SPECIMENOrdering Facility: [facility] Address: [address] [place] [address] Performed By: #### 2 4323-8 ####[facility]ITAL[facility]CLIA [id number] [place] [address] [place] ALT [Catalytic activity/Vol] 15 U/L Normal 7-38 [facility] Comment on above: Order Comment: Speci men Type: BLOOD SPECIMENOrdering Facility: [facility] Address: [address] [place] [address] Performed By: #### 2 4323-8 ####[facility] MILLTOWNCLIA [id number] [place] [address] [place] Anion gap [Moles/Vol] 9 mmol/L Normal 8-15 [facility] Comment on above: Order Comment: Speci men Type: BLOOD SPECIMENOrdering Facility: [facility] Address: [address] [place] [address] Performed By: #### 2 4323-8 ####[facility] MILLTOWNCLIA [id number] [place] [address] [place] AST [Catalytic activity/Vol] 18 U/L Normal 13-35 [facility] Comment on above: Order Comment: Speci men Type: BLOOD SPECIMENOrdering Facility: [facility] Address: [address] [place] [address] Performed By: #### 2 4323-8 ####[facility]ITALNCLIA [id number] [place] [address] [place] Bilirubin [Mass/Vol] 1.0 mg/dL Normal 0.2-1.3 [facility] Comment on above: Order Comment: Speci men Type: BLOOD SPECIMENOrdering Facility: [facility] Address: [address] [place] [address] Performed By: #### 2 4323-8 ####[facility]ITALWNCLIA [id number] [place] [address] [place] Calcium [Mass/Vol] 9.8 mg/dL Normal 8.5-10.2 [facility] Comment on above: Order Comment: Speci men Type: BLOOD SPECIMENOrdering Facility: [facility] Address: [address] [place] [address] Performed By: #### 2 4323-8 ####[facility]ITALNCLIA [id number] [place] [address] [place] Chloride [Moles/Vol] 103 mmol/L Normal 98-107 [facility] Comment on above: Order Comment: Speci men Type: BLOOD SPECIMENOrdering Facility: [facility] Address: [address] [place] [address] Performed By: #### 2 4323-8 ####[facility] [id number] [place] [address] [place] CO2 [Moles/Vol] 27 mmol/L Normal 22-30 [facility] Comment on above: Order Comment: Speci men Type: BLOOD SPECIMENOrdering Facility: [facility] Address: [address] [place] [address] Performed By: #### 2 4323-8 ####[facility] [id number] [place] [address] [place] Creatinine [Mass/Vol] 0.71 mg/dL Normal 0.58-0.96 [facility] Comment on above: Order Comment: Speci men Type: BLOOD SPECIMENOrdering Facility: [facility] Address: [address] [place] [address] Performed By: #### 2 4323-8 ####[facility] [id number] [address] Creatinine and Glomerular filtration rate.predicted panel (S/P/Bld) 87 mL/min/1.73m??? Normal >=60 [facility] Comment on above: Order Comment: Speci men Type: BLOOD SPECIMENOrdering Facility: [facility] Address: [address] [place] [address] Result Comment: Judith mated Glomerular Filtration Rate [...] actual GFR. Performed By: #### 2 4323-8 ####[facility] MATTHEWWNCLIA [id number] [place] [address] [place] Glucose [Mass/Vol] 149 mg/dL High 74-99 [facility] Comment on above: Order Comment: Speci men Type: BLOOD SPECIMENOrdering Facility: [facility] Address: [address] [place] [address] Result Comment: The [place] Diabetes Association (ADA) provides guidance for cutoff [...] Standards of Medical Care in Diabetes 2016, [place] [employer]. Diabetes Care. 2016.39(Suppl 1). Performed By: #### 2 4323-8 ####[facility]ITALNCLIA [id number] [place] [address] [place] Potassium [Moles/Vol] 4.1 mmol/L Normal 3.7-5.1 [facility] Comment on above: Order Comment: Speci men Type: BLOOD SPECIMENOrdering Facility: [facility] Address: [address] [place] [address] Performed By: #### 2 4323-8 ####[facility]ITALNCLIA [id number] [place] [address] [place] Protein [Mass/Vol] 7.1 g/dL Normal 6.3-8.0 [facility] Comment on above: Order Comment: Speci men Type: BLOOD SPECIMENOrdering Facility: [facility] Address: [address] [place], [place] [address] Performed By: #### 2 4323-8 ####[facility] [id number] [place] [address] [place] Sodium [Moles/Vol] 139 mmol/L Normal 136-144 [facility] Comment on above: Order Comment: Speci men Type: BLOOD SPECIMENOrdering Facility: [facility] Address: [address] [place] [address] Performed By: #### 2 4323-8 ####[facility] [id number] [place] [address] [place] Urea nitrogen [Mass/Vol] 22 mg/dL High 7-21 [facility] Comment on above: Order Comment: Speci men Type: BLOOD SPECIMENOrdering Facility: [facility] Address: [address] [place] [address] Performed By: #### 2 4323-8 ####[facility] [id number] [place] [address] [place] HbA1c (Bld)on 08-20-2024 Average glucose Estimated from glycated hemoglobin (Bld) [Mass/Vol] 157 mg/dL Normal [facility] Comment on above: Order Comment: Speci men Type: BLOOD SPECIMENOrdering Facility: [facility] Address: [address] [place] [address] Result Comment: eAG: (Estimated average glucose) is a calculated value from HgbA1c and is business process representative of the average blood glucose level in the last 2-3 month period. Performed By: #### 5 5454-3 ####[facility] LABCL[facility] [id number] [place] [address] [place] HbA1c (Bld) [Mass fraction] 7.1 % High 4.3-5.6 [facility] Comment on above: Order Comment: Speci men Type: BLOOD SPECIMENOrdering Facility: [facility] [facility] Address: [address] [place] [address] Result Comment: Amer [place] Diabetes Association guidelines indicate that patients with HgbA1c in the range 5.7-6.4% are at increased risk for development of diabetes, and intervention by lifestyle modification may be beneficial. HgbA1c greater or equal to 6.5% is considered diagnostic of diabetes. Performed By: #### 5 5454-3 ####[facility] [id number] [place] [address] [place] LIPID PANEL, NONFASTINGon Cholesterol [Mass/Vol] 197 mg/dL Normal <200 [facility] Comment on above: Order Comment: Ruma deluna Type: BLOOD SPECIMENOrdering Facility: [facility] Address: [address] [place] [address] Result Comment: <200 mg/dL, Desirable 200-239 mg/dL, Borderline high>239 mg/dL, High Performed By: #### L IPNF ####[facility] [id number] [address] [place] HDL CHOLESTEROL, NF 59 mg/dL Normal >39 [facility] Comment on above: Order Comment: Ruma deluna Type: BLOOD SPECIMENOrdering Facility: [facility] Address: [address] [place] [address] Result Comment: 40-5 9 mg/dL, Acceptable>59 mg/dL, High: Negative risk factor for coronary heart disease<40 mg/dL, Low: Positive risk factor for coronary heart disease Performed By: #### L IPNF ####[facility] [id number] [address] [place] LDL CHOLESTEROL, NF 120 mg/dL High <100 [facility] Comment on above: Order Comment: Ruma deluna Type: BLOOD SPECIMENOrdering Facility: [facility] Address: [address] [place] [address] Result Comment: <100 mg/dL, Optimal 100-129 mg/dL, Near optimal/above optimal 130-159 mg/dL, Borderline high 160-189 mg/dL, High>189 mg/dL, Very highSecondary prevention optimal LDL Cholesterol levels are recommended to be < 70 mg/dL Performed By: #### L IPNF ####[facility] [id number] [place] [address] [facility] [place] LDL/HDL RATIO, NF 2.03 mg/dL Normal <2.54 [facility] Comment on above: Order Comment: Speci men Type: BLOOD SPECIMENOrdering Facility: [facility] Address: [address] [place] [address] Result Comment: Refe rence:1. National Cholesterol Education Program ATP III Guideline At-A-Glance Quick Desk Reference: National Heart, Lung, and Blood [place]. National Institutes of Health. 2001: NIH Publication No. 01-3305.2. An International Atherosclerosis Society position paper: global recommendations for the management of dyslipidemia: executive summary, Atherosclerosis. 2014: 232(2):410-413. Performed By: #### L IPNF ####[facility] [id number] [place] [address] [place] NON HDL CHOL, NF 138 mg/dL High <130 [facility] Comment on above: Order Comment: Marilui mikie Type: BLOOD SPECIMENOrdering Facility: [facility] Address: [address] [place] [address] Result Comment: <130 mg/dL, Optimal 130-159 mg/dL, Near optimal/above optimal 160-189 mg/dL, Borderline high 190-219 mg/dL, High>219 mg/dL, Very highSecondary prevention optimal non HDL Cholesterol levels are recommended to be <100 mg/dL Performed By: #### L IPNF ####[facility] [id number] [address] OF [place] T CHOL/HDL RATIO NF 3.34 mg/dL Normal <5.10 [facility] Comment on above: Order Comment: Marilui men Type: BLOOD SPECIMENOrdering Facility: [facility] Address: [address] [place] [address] Performed By: #### L IPNF ####[facility] [id number] [place] [id number] [place] TRIGLYCERIDES, NF 92 mg/dL Normal <150 [facility] Comment on above: Order Comment: Speci men Type: BLOOD SPECIMENOrdering Facility: [facility] Address: [address] [place] [address] Result Comment: <150 mg/dL, Normal 150-199 mg/dL, Borderline high 200-499 mg/dL, High>499 mg/dL, Very high Performed By: #### L IPNF ####[facility] [id number] [place] [address] [place] VLDL CHOLESTEROL, NF 18 mg/dL Normal <30 [facility] Comment on above: Order Comment: Speci men Type: BLOOD SPECIMENOrdering Facility: [facility] Address: [address] [place] [address] Performed By: #### L IPNF ####[facility] [id number] [place] [address] [place] CNPTOUTREACHon 08-17-2024 CNPTOUTREACH Normal [facility] CNPNon 08-08-2024 CNPN Normal [facility] CNPNon 08-01-2024 CNPN Normal [facility] 12 Lead EKGon 07-28-2024 12 Lead EKG Normal [facility] Absolute neutrophil countOrd ered By: Amber Martino on 07-28-2024 Neutrophils (Bld) [#/Vol] 5.1 10*3/uL 2.0-7.7 [facility] Basic Metabolic Profile (BMP )on 07-28-2024 BUN/CRE 18.1 RATIO Normal 10-20 [facility] Comment on above: Order Comment: 'TROP ' Serial specimen #1, #2 or #3: 1 Performed By: #### L 501.4020, L100.0100, L500.2500 ####[facility] [address] [place], [place], [id number] [place],Total 9.3 mg/dL Normal 8.5-10.1 [facility] Comment on above: Order Comment: 'TROP ' Serial specimen #1, #2 or #3: 1 Performed By: #### L 501.4020, L100.0100, L500.2500 ####[facility] [address] [place], [address] Chloride [Moles/Vol] 103 mmol/L Normal 98-107 [facility] Comment on above: Order Comment: 'TROP ' Serial specimen #1, #2 or #3: 1 Performed By: #### L 501.4020, L100.0100, L500.2500 ####[facility] [address] [place], [address] CO2 [Moles/Vol] 25.0 mmol/L Normal 21.0-32.0 [facility] Comment on above: Order Comment: 'TROP ' Serial specimen #1, #2 or #3: 1 Performed By: #### L 501.4020, L100.0100, L500.2500 ####[facility] [address] [place], [address] Creatinine [Mass/Vol] 1.05 mg/dL High 0.55-1.02 [facility] Comment on above: Order Comment: 'TROP ' Serial specimen #1, #2 or #3: 1 Result Comment: The validity of the calculated GFR GFRAA in patients over70 years has not been determined. Clinical correlation isessential. Performed By: #### L 501.4020, L100.0100, L500.2500 ####[facility] [address] [place], [address] ECRCL 66.56 ml/min Normal [facility] Comment on above: Order Comment: 'TROP ' Serial specimen #1, #2 or #3: 1 Performed By: #### L 501.4020, L100.0100, L500.2500 ####[facility] [address] [place], [address] EST GFR - AA 65 mL/min Normal >60 [facility] Comment on above: Order Comment: 'TROP ' Serial specimen #1, #2 or #3: 1 Result Comment: Afri can Norwegian GFR Calc Performed By: #### L 501.4020, L100.0100, L500.2500 ####[facility] [address] [place], [address] GAP 6 Normal 5-15 [facility] Comment on above: Order Comment: 'TROP ' Serial specimen #1, #2 or #3: 1 Performed By: #### L 501.4020, L100.0100, L500.2500 ####[facility] [address] [place], [address] GFR/1.73 sq M.predicted among non-blacks MDRD (S/P/Bld) [Vol rate/Area] 54 mL/min/{1.73_m2} Low >60 [facility] Comment on above: Order Comment: 'TROP ' Serial specimen #1, #2 or #3: 1 Result Comment: Non- GFR Calc Performed By: #### L 501.4020, L100.0100, L500.2500 ####[facility] [address] [place], [address] Glucose [Mass/Vol] 197 mg/dL High 74-[address] [facility] Comment on above: Order Comment: 'TROP ' Serial specimen #1, #2 or #3: 1 Result Comment: Fast ing Glucose result greater than or equal to 126 mg/dLsuggests DIABETES MELLITUS per A.D.A. criteria. Performed By: #### L 501.4020, L100.0100, L500.2500 ####[facility] [address] [place], [address] Potassium [Moles/Vol] 4.6 mmol/L Normal 3.5-5.1 [facility] Comment on above: Order Comment: 'TROP ' Serial specimen #1, #2 or #3: 1 Performed By: #### L 501.4020, L100.0100, L500.2500 ####[facility] [address] [place], [address] Sodium [Moles/Vol] 134 mmol/L Low 136-[address] [facility] Comment on above: Order Comment: 'TROP ' Serial specimen #1, #2 or #3: 1 Performed By: #### L 501.4020, L100.0100, L500.2500 ####[facility] [address] [place], [address] Urea nitrogen [Mass/Vol] 19 mg/dL High 7-18 [facility] Comment on above: Order Comment: 'TROP ' Serial specimen #1, #2 or #3: 1 Performed By: #### L 501.4020, L100.0100, L500.2500 ####[facility] [address] [place], [address] Basophil percentageOrdered B y: Amber Martino on 07-28-2024 Basophils/100 WBC (Bld) 0.7 % 0-1 [facility] Bilirubin Test strip Ql (U)O rdered By: Amber Martino on 07-28-2024 Bilirubin Ql (U) Negative Negative [facility] Blood urea nitrogen (BUN)/cr eatinine ratioOrdered By: Amber Martino on 07-28-2024 Urea nitrogen/Creatinine [Mass ratio] 18.1 mg/mg 10-20 [facility] CBC W/Diff, Automatedon 07-18 PLT EST ADEQUATE Normal ADEQ [facility] Comment on above: Performed By: #### L 501.4020, L100.0100, L500.2500 ####[facility] [address] [place], [address] Carbon dioxide measurementOr dered By: Amber Martino on 07-28-2024 CO2 [Moles/Vol] 25.0 mmol/L 21.0-32.0 [facility] Chloride measurementOrdered By: Amber Martino on 07-28-2024 Chloride [Moles/Vol] 103 mmol/L 98-107 [facility] Emergency Department Summary on 07-28-2024 Emergency Department Summary Normal [facility] Eosinophil percentageOrdered By: Amber Martino on 07-28-2024 Eosinophils/100 WBC (Bld) 4.5 % 0-5 [facility] Epithelial cells.squamous LM Ql (Urine sed)Ordered By: Amber Martino on 07-28-2024 Epithelial cells.squamous LM.HPF (Urine sed) [#/Area] 0 /[HPF] 5-10 [facility] Erythrocyte distribution wid th ratioOrdered By: Amber Martino on 07-28-2024 Erythrocyte distribution width (RBC) [Ratio] 12.6 % 11.6-14.6 [facility] Erythrocyte distribution wid th standard deviationOrdered By: Amber Martino on 07-28-2024 Erythrocyte distribution width (RBC) [Entitic vol] 40.6 fL 35.1-43.9 [facility] Estimated glomerular filtrat ion rate (GFR) AmericanOrdered By: Amber Martino on 07-28-2024 Estimated GFR (MDRD) Amer 65 mL/min >60 [facility] Comment on above: GFR Calc Estimation of creatinine kimberly aranceOrdered By: Amber Martino on 07-28-2024 Estimated Creatinine Clearance Calc 66.56 ml/min [facility] Glomerular filtration rate ( GFR) estimationOrdered By: Amber Martino on 07-28-2024 Estimated GFR (MDRD) Non-Af Amer 54 mL/min Low >60 [facility] Comment on above: Non- GFR Calc Glucose Ql (U)Ordered By: Daniel Martino on 07-28-2024 Urine Glucose (UA) Normal mg/dl Normal [facility] Glucose measurementOrdered B y: Amber Martino on 07-28-2024 Glucose [Mass/Vol] 197 mg/dL High 74-[address] [facility] Comment on above: Fasting Glucose resu lt greater than or equal to 126 mg/dL suggests DIABETES MELLITUS per A.D.A. criteria. Hematocrit Auto (Bld) [Volum e fraction]Ordered By: Amber Martino on 07-28-2024 Hematocrit (Bld) [Volume fraction] 41.0 % 37-47 [facility] Hemoglobin measurementOrdere d By: Amber Martino on 07-28-2024 Hemoglobin (Bld) [Mass/Vol] 13.6 g/dL 12.0-15.0 [facility] Immature granulocytes/100 WB C Auto (Bld)Ordered By: Amber Martino on 07-28-2024 Immature granulocytes/100 WBC (Bld) 0.300 % 0.0-0.9 [facility] Comment on above: IG% - Immature Granu locytes (promyelocytes, myelocytes and metamyelocytes) > 1% indicates that a LEFT SHIFT is Present. Ketones Test strip Ql (U)Ord ered By: Amber Martino on 07-28-2024 Ketones Ql (U) 5 mg/dl High Negative [facility] L501.4020on 07-28-2024 TROPONIN-I HS 12 pg/mL Normal 3.0-54.0 [facility] Comment on above: Order Comment: 'TROP ' Serial specimen #1, #2 or #3: 1 Result Comment: Jeffrey quintana Note: New Test Units and Gender Specific Reference Ranges. For more information see Policy Stat Procedure [place] High Sensitivity Troponin (TNIH) and attachments. Performed By: #### L 501.4020, L100.0100, L500.2500 ####[facility] [address] [place], [address] Lymphocytes Auto (Unsp spec) [#/Vol]Ordered By: Amber Martino on 07-28-2024 Lymphocytes (Bld) [#/Vol] 1.12 10*3/uL 0.83-4.51 [facility] Lymphocytes/100 WBC Auto (Un sp spec)Ordered By: Amber Martino on 07-28-2024 Lymphocytes/100 WBC (Bld) 15.6 % Low 19-41 [facility] MCV (mean corpuscular volume ) determinationOrdered By: Amber Martino on 07-28-2024 MCV (RBC) [Entitic vol] 88.4 fL 81-99 [facility] Manual differential comment Ferny (Bld) [Interp]Ordered By: Amber Martino on 07-28-2024 Differential Comment SCANNED [facility] Mean corpuscular hemoglobin (MCH) determinationOrdered By: Amber Martino on 07-28-2024 MCH (RBC) [Entitic mass] 29.3 pg 27.0-32.0 [facility] Mean corpuscular hemoglobin concentration (MCHC) determinationOrdered By: Amber Martino on 07-28-2024 MCHC (RBC) [Mass/Vol] 33.2 g/dL 32-36 [facility] Mean platelet volume determi nationOrdered By: Amber Martino on 07-28-2024 Mean Platelet Volume Not Reportable [facility] Microscopic analysis of urin e for red blood cells (RBC)Ordered By: Amber Martino on 07-28-2024 Urine RBC 0 SEEN /hpf 0-5 [facility] Monocyte percentageOrdered B y: Amber Martino on 07-28-2024 Monocytes/100 WBC (Bld) 7.7 % 0-10 [facility] Mucus LM Ql (Urine sed)Order ed By: Amber Martino on 07-28-2024 Mucus Ql (Urine sed) 0 SEEN /hpf [facility] Neutrophil percentageOrdered By: Amber Martino on 07-28-2024 Neutrophils/100 WBC (Bld) 71.2 % High 47-70 [facility] Nitrite Test strip Ql (U)Ord ered By: Amber Martino on 07-28-2024 Nitrite Ql (U) Negative Negative [facility] Nucleated red blood cell per centageOrdered By: Amber Martino on 07-28-2024 Nucleated RBC/100 WBC (Bld) [Ratio] 0 % 0-5 [facility] Platelet countOrdered By: Daniel Martino on 07-28-2024 Platelet Count See comment 150-450 [facility] Comment on above: Please note: For thi [...] Martino on 07-28-2024 Platelet Estimate ADEQUATE ADEQ [facility] Potassium measurementOrdered By: Amber Martino on 07-28-2024 Potassium [Moles/Vol] 4.6 mmol/L 3.5-5.1 [facility] Protein Test strip Ql (U)Ord ered By: Amber Martino on 07-28-2024 Protein Ql (U) Negative Negative [facility] RBC Auto (Bld) [#/Vol]Ordere d By: Amber Martino on 07-28-2024 RBC (Bld) [#/Vol] 4.64 10*6/uL 4.2-5.4 [facility] Serum anion gap measurementO rdered By: Amber Martino on 07-28-2024 Anion gap [Moles/Vol] 6 mmol/L 5-15 [facility] Serum or plasma calcium zora urement (mass/volume)Ordered By: Amber Martino on 07-28-2024 Calcium [Mass/Vol] 9.3 mg/dL 8.5-10.[address] [facility] Serum or plasma creatinine m easurement (mass/volume)Ordered By: Amber Martino on 07-28-2024 Creatinine [Mass/Vol] 1.05 mg/dL High 0.55-1.02 [facility] Comment on above: The validity of the calculated GFR & GFRAA in patients over 70 years has not been determined. Clinical correlation is essential. Serum or plasma urea nitroge n measurement (mass/volume)Ordered By: Amber Martino on 07-28-2024 Urea nitrogen [Mass/Vol] 19 mg/dL High 7-18 [facility] Sodium levelOrdered By: Amber Martino on 07-28-2024 Sodium [Moles/Vol] 134 mmol/L Low 136-[address] [facility] Troponin IOrdered By: Amber caputo on 07-28-2024 Troponin I High Sensitivity 12 pg/mL 3.0-54.0 [facility] Comment on above: Please Note: New Mariajose t Units and Gender Specific Reference Ranges. For more information see Policy Stat Procedure [place] High Sensitivity Troponin (TNIH) and attachments. Urinalysis, Completeon 07-28 WBC 0-5 SEEN Normal 0-5 [facility] Comment on above: Order Comment: COLLE CTOR TO SPECIFY Performed By: #### L 400.0001 ####[facility] [address] [place], [address] BACTERIA 0 SEEN Normal None Seen [facility] Comment on above: Order Comment: DERRICK CTOR TO SPECIFY Performed By: #### L 400.0001 ####[facility] [address] [place], [address] EPI,SQUAMOUS 0 SEEN Normal 5-10 [facility] Comment on above: Order Comment: DERRICK CTOR TO SPECIFY Performed By: #### L 400.0001 ####[facility] [address] [place], [address] Mucus Ql (Urine sed) 0 SEEN Normal [facility] Comment on above: Order Comment: DERRICK CTOR TO SPECIFY Performed By: #### L 400.0001 ####[facility] [address] [place], [address] RBC 0 SEEN Normal 0-5 [facility] Comment on above: Order Comment: DERRICK CTOR TO SPECIFY Performed By: #### L 400.0001 ####[facility] [address] [place], [address] Urine blood detectionOrdered By: Amber Martino on 07-28-2024 Urine Occult Blood Negative Negative [facility] Urine clarityOrdered By: Venita Martino on 07-28-2024 Clarity (U) Clear Clear [facility] Urine color determinationOrd ered By: Amber Martino on 07-28-2024 Color (U) Yellow Yellow [facility] Urine leukocyte esterase det ection by dipstickOrdered By: Amber Martino on 07-28-2024 Leukocyte esterase Test strip Ql (U) 100 /ul High Negative [facility] Urine pHOrdered By: Amber magallanes on 07-28-2024 pH (U) 6.5 [pH] 5.0 - 8.0 [facility] Urine sediment bacteria coun t by microscopy (number/high power field)Ordered By: Ambergm Martino on 07-28-2024 Bacteria LM.HPF (Urine sed) [#/Area] 0 /[HPF] None Seen [facility] Urine specific gravity measu rementOrdered By: Amber Salena on 07-28-2024 Specific gravity (U) [Rel density] 1.010 1.002-1.030 [facility] Urobilinogen Ql (U)Ordered B y: Amber Martino on 07-28-2024 Urine Urobilinogen Normal mg/dl Normal [facility] White blood cell (WBC) count Ordered By: Ambergm Martino on 07-28-2024 WBC (Bld) [#/Vol] 7.2 10*3/uL 4.4-11.[address] [facility] White blood cell countOrdere d By: Amber Martino on 07-28-2024 Urine WBC 0-5 SEEN /hpf 0-5 [facility] CNPNon 07-19-2024 CNPN Normal [facility] CNPNon 07-16-2024 CNPN Normal [facility] CNOVon 07-03-2024 CNOV Normal [facility] L501.4020on 07-03-2024 TROPONIN-I HS 12 pg/mL Normal 3.0-54.0 [facility] Comment on above: Result Comment: Jeffrey quintana Note: New Test Units and Gender Specific Reference Ranges. For more information see Policy Stat Procedure [place] High Sensitivity Troponin (TNIH) and attachments. Performed By: #### L 501.4020 ####[facility] [address] [place], [address] Troponin IOrdered By: Eduardo Paz on 07-03-2024 Troponin I High Sensitivity 12 pg/mL 3.0-54.0 [facility] Comment on above: Please Note: New Mariajose t Units and Gender Specific Reference Ranges. For more information see Policy Stat Procedure [place] High Sensitivity Troponin (TNIH) and attachments. 12 Lead EKGon 07-02-2024 12 Lead EKG Normal [facility] Absolute neutrophil countOrd ered By: Eduardo Paz on 07-02-2024 Neutrophils (Bld) [#/Vol] 3.2 10*3/uL 2.0-7.7 [facility] Basic Metabolic Profile (BMP )on 07-02-2024 BUN/CRE 22.7 RATIO High 10-20 [facility] Comment on above: Order Comment: 1Y Performed By: #### L 500.2500, L501.5425, L100.0100 ####[facility] [address] [place], [address] CA,Total 9.4 mg/dL Normal 8.5-10.1 [facility] Comment on above: Order Comment: 1Y Performed By: #### L 500.2500, L501.5425, L100.0100 ####[facility] [address] [place], [address] Chloride [Moles/Vol] 103 mmol/L Normal 98-107 [facility] Comment on above: Order Comment: 1Y Performed By: #### L 500.2500, L501.5425, L100.0100 ####[facility] [address] [place], [address] CO2 [Moles/Vol] 28.0 mmol/L Normal 21.0-32.0 [facility] Comment on above: Order Comment: 1Y Performed By: #### L 500.2500, L501.5425, L100.0100 ####[facility] [address] [place], [address] Creatinine [Mass/Vol] 0.84 mg/dL Normal 0.55-1.02 [facility] Comment on above: Order Comment: 1Y Result Comment: The validity of the calculated GFR GFRAA in patients over70 years has not been determined. Clinical correlation isessential. Performed By: #### L 500.2500, L501.5425, L100.0100 ####[facility] [address] [place], [address] ECRCL 82.67 ml/min Normal [facility] Comment on above: Order Comment: 1Y Performed By: #### L 500.2500, L501.5425, L100.0100 ####[facility] [address] [place], [address] EST GFR - AA 84 mL/min Normal >60 [facility] Comment on above: Order Comment: 1Y Result Comment: Afri can Norwegian GFR Calc Performed By: #### L 500.2500, L501.5425, L100.0100 ####[facility] [address] [place], [address] GAP 6 Normal 5-15 [facility] Comment on above: Order Comment: 1Y Performed By: #### L 500.2500, L501.5425, L100.0100 ####[facility] [address] [place], [address] GFR/1.73 sq M.predicted among non-blacks MDRD (S/P/Bld) [Vol rate/Area] 70 mL/min/{1.73_m2} Normal >60 [facility] Comment on above: Order Comment: 1Y Result Comment: Non- GFR Calc Performed By: #### L 500.2500, L501.5425, L100.0100 ####[facility] [address] [place], [address] Glucose [Mass/Vol] 195 mg/dL High 74-[address] [facility] Comment on above: Order Comment: 1Y Result Comment: Fast ing Glucose result greater than or equal to 126 mg/dLsuggests DIABETES MELLITUS per A.D.A. criteria. Performed By: #### L 500.2500, L501.5425, L100.0100 ####[facility] [address] [place], [address] Potassium [Moles/Vol] 3.7 mmol/L Normal 3.5-5.1 [facility] Comment on above: Order Comment: 1Y Performed By: #### L 500.2500, L501.5425, L100.0100 ####[facility] [address] [place], [address] Sodium [Moles/Vol] 137 mmol/L Normal 136-[address] [facility] Comment on above: Order Comment: 1Y Performed By: #### L 500.2500, L501.5425, L100.0100 ####[facility] [address] [place], [address] Urea nitrogen [Mass/Vol] 19 mg/dL High 7-18 [facility] Comment on above: Order Comment: 1Y Performed By: #### L 500.2500, L501.5425, L100.0100 ####[facility] [address] [place], [address] Basophil percentageOrdered B y: Eduardo Paz on 07-02-2024 Basophils/100 WBC (Bld) 0.4 % 0-1 [facility] Blood urea nitrogen (BUN)/cr eatinine ratioOrdered By: Eduardo Paz on 07-02-2024 Urea nitrogen/Creatinine [Mass ratio] 22.7 mg/mg High - [facility] CBC W/Diff, Automatedon 06-17 Absolute Lymph 1.33 X10 3/uL Normal 0.83-4.51 [facility] Comment on above: Performed By: #### L 500.2500, L501.5425, L100.0100 ####[facility] [address] [place], [address] Absolute Neut 3.2 X10 3/uL Normal 2.0-7.7 [facility] Comment on above: Performed By: #### L 500.2500, L501.5425, L100.0100 ####[facility] [address] [place], [address] Basophils/100 WBC (Bld) 0.4 % Normal 0-1 [facility] Comment on above: Performed By: #### L 500.2500, L501.5425, L100.0100 ####[facility] [address] [place], [address] Eosinophils/100 WBC (Bld) 3.3 % Normal 0-5 [facility] Comment on above: Performed By: #### L 500.2500, L501.5425, L100.0100 ####[facility] [address] [place], [address] Erythrocyte distribution width (RBC) [Ratio] 12.5 % Normal 11.6-14.6 [facility] Comment on above: Performed By: #### L 500.2500, L501.5425, L100.0100 ####[facility] [address] [place], [address] Hematocrit (Bld) [Volume fraction] 38.9 % Normal 37-47 [facility] Comment on above: Performed By: #### L 500.2500, L501.5425, L100.0100 ####[facility] [address] [place], [address] Hemoglobin (Bld) [Mass/Vol] 12.7 g/dL Normal 12.0-15.0 [facility] Comment on above: Performed By: #### L 500.2500, L501.5425, L100.0100 ####[facility] [address] [place], [address] IG% 0.200 Normal 0.0-0.9 [facility] Comment on above: Result Comment: IG% - Immature Granulocytes (promyelocytes, myelocytes andmetamyelocytes) > 1% indicates that a LEFT SHIFT is Present. Performed By: #### L 500.2500, L501.5425, L100.0100 ####[facility] [address] [place], [address] Lymphocytes/100 WBC (Bld) 25.5 % Normal 19-41 [facility] Comment on above: Performed By: #### L 500.2500, L501.5425, L100.0100 ####[facility] [address] [place], [address] MCH (RBC) [Entitic mass] 29.1 pg Normal 27.0-32.0 [facility] Comment on above: Performed By: #### L 500.2500, L501.5425, L100.0100 ####[facility] [address] [place], [address] MCHC (RBC) [Mass/Vol] 32.6 g/dL Normal 32-36 [facility] Comment on above: Performed By: #### L 500.2500, L501.5425, L100.0100 ####[facility] [address] [place], [address] MCV (RBC) [Entitic vol] 89.0 fL Normal 81-99 [facility] Comment on above: Performed By: #### L 500.2500, L501.5425, L100.0100 ####[facility] [address] [place], [address] Monocytes/100 WBC (Bld) 9.8 % Normal 0-10 [facility] Comment on above: Performed By: #### L 500.2500, L501.5425, L100.0100 ####[facility] [address] [place], [address] Neutrophils/100 WBC (Bld) 60.8 % Normal 47-70 [facility] Comment on above: Performed By: #### L 500.2500, L501.5425, L100.0100 ####[facility] [address] [place], [address] Nucleated RBC (Bld) [#/Vol] 0 10*3/uL Normal 0-5 [facility] Comment on above: Performed By: #### L 500.2500, L501.5425, L100.0100 ####[facility] [address] [place], [address] Platelet mean volume (Bld) [Entitic vol] 12.2 fL High 6.2-12.0 [facility] Comment on above: Performed By: #### L 500.2500, L501.5425, L100.0100 ####[facility] [address] [place], [address] Platelets (Bld) [#/Vol] 183 10*3/uL Normal 150-450 [facility] Comment on above: Performed By: #### L 500.2500, L501.5425, L100.0100 ####[facility] [address] [place], [address] RBC (Bld) [#/Vol] 4.37 10*6/uL Normal 4.2-5.4 [facility] Comment on above: Performed By: #### L 500.2500, L501.5425, L100.0100 ####[facility] [address] [place], [address] RDW SD 41.1 fl Normal 35.1-43.9 [facility] Comment on above: Performed By: #### L 500.2500, L501.5425, L100.0100 ####[facility] [address] [place], [address] WBC (Bld) [#/Vol] 5.2 10*3/uL Normal 4.4-11.[address] [facility] Comment on above: Performed By: #### L 500.2500, L501.5425, L100.0100 ####[facility] [address] [place], [address] Carbon dioxide measurementOr dered By: Eduardo Paz on 07-02-2024 CO2 [Moles/Vol] 28.0 mmol/L 21.0-32.0 [facility] Chest 1 View (Portable)on Chest 1 View (Portable) Normal [facility] Chloride measurementOrdered By: Eduardo Paz on 07-02-2024 Chloride [Moles/Vol] 103 mmol/L 98-107 [facility] Emergency Department Summary on 07-02-2024 Emergency Department Summary Normal [facility] Eosinophil percentageOrdered By: Eduardo Paz on 07-02-2024 Eosinophils/100 WBC (Bld) 3.3 % 0-5 [facility] Erythrocyte distribution wid th ratioOrdered By: Eduardo Paz on 07-02-2024 Erythrocyte distribution width (RBC) [Ratio] 12.5 % 11.6-14.6 [facility] Erythrocyte distribution wid th standard deviationOrdered By: Eduardo Hua on 07-02-2024 Erythrocyte distribution width (RBC) [Entitic vol] 41.1 fL 35.1-43.9 [facility] Estimated glomerular filtrat ion rate (GFR) AmericanOrdered By: Eduardo Paz on 07-02-2024 Estimated GFR (MDRD) Amer 84 mL/min >60 [facility] Comment on above: GFR Calc Estimation of creatinine kimberly aranceOrdered By: Eduardo Paz on 07-02-2024 Estimated Creatinine Clearance Calc 82.67 ml/min [facility] Glomerular filtration rate ( GFR) estimationOrdered By: Eduardo Paz on 07-02-2024 Estimated GFR (MDRD) Non-Af Amer 70 mL/min >60 [facility] Comment on above: Non- GFR Calc Glucose measurementOrdered B y: Eduardo Paz on 07-02-2024 Glucose [Mass/Vol] 195 mg/dL High 74-[address] [facility] Comment on above: Fasting Glucose resu lt greater than or equal to 126 mg/dL suggests DIABETES MELLITUS per A.D.A. criteria. Hematocrit Auto (Bld) [Volum e fraction]Ordered By: Eduardo Paz on 07-02-2024 Hematocrit (Bld) [Volume fraction] 38.9 % 37-47 [facility] Hemoglobin measurementOrdere d By: Eduardo Paz on 07-02-2024 Hemoglobin (Bld) [Mass/Vol] 12.7 g/dL 12.0-15.0 [facility] Immature granulocytes/100 WB C Auto (Bld)Ordered By: Eduardo Paz on 07-02-2024 Immature granulocytes/100 WBC (Bld) 0.200 % 0.0-0.9 [facility] Comment on above: IG% - Immature Granu locytes (promyelocytes, myelocytes and metamyelocytes) > 1% indicates that a LEFT SHIFT is Present. L501.5425on 07-02-2024 TROPONIN-I HS 15 pg/mL Normal 3.0-54.0 [facility] Comment on above: Order Comment: 1Y Result Comment: Jeffrey quintana Note: New Test Units and Gender Specific Reference Ranges. For more information see Policy Stat Procedure [place] High Sensitivity Troponin (TNIH) and attachments. Performed By: #### L 500.2500, L501.5425, L100.0100 ####[facility] [address] [place], [address] Lymphocytes Auto (Unsp spec) [#/Vol]Ordered By: Eduardo Paz on 07-02-2024 Lymphocytes (Bld) [#/Vol] 1.33 10*3/uL 0.83-4.51 [facility] Lymphocytes/100 WBC Auto (Un sp spec)Ordered By: Eduardodidi Paz on 07-02-2024 Lymphocytes/100 WBC (Bld) 25.5 % 19-41 [facility] MCV (mean corpuscular volume ) determinationOrdered By: Eduardo Paz on 07-02-2024 MCV (RBC) [Entitic vol] 89.0 fL 81-99 [facility] Mean corpuscular hemoglobin (MCH) determinationOrdered By: Eduardo Paz on 07-02-2024 MCH (RBC) [Entitic mass] 29.1 pg 27.0-32.0 [facility] Mean corpuscular hemoglobin concentration (MCHC) determinationOrdered By: Eduardo Paz on 07-02-2024 MCHC (RBC) [Mass/Vol] 32.6 g/dL 32-36 [facility] Mean platelet volume determi nationOrdered By: Eduardo Paz on 07-02-2024 Platelet mean volume (Bld) [Entitic vol] 12.2 fL High 6.2-12.0 [facility] Monocyte percentageOrdered B y: Eduardo Paz on 07-02-2024 Monocytes/100 WBC (Bld) 9.8 % 0-10 [facility] Neutrophil percentageOrdered By: Eduardo Paz on 07-02-2024 Neutrophils/100 WBC (Bld) 60.8 % 47-70 [facility] Nucleated red blood cell per centageOrdered By: Edurado Paz on 07-02-2024 Nucleated RBC/100 WBC (Bld) [Ratio] 0 % 0-5 [facility] Platelet countOrdered By: Krzysztof Paz on 07-02-2024 Platelets (Bld) [#/Vol] 183 10*3/uL 150-450 [facility] Potassium measurementOrdered By: Eduardo Paz on 07-02-2024 Potassium [Moles/Vol] 3.7 mmol/L 3.5-5.1 [facility] RBC Auto (Bld) [#/Vol]Ordere d By: Eduardo Paz on 07-02-2024 RBC (Bld) [#/Vol] 4.37 10*6/uL 4.2-5.4 [facility] Serum anion gap measurementO rdered By: Eduardo Paz on 07-02-2024 Anion gap [Moles/Vol] 6 mmol/L 5-15 [facility] Serum or plasma calcium zora urement (mass/volume)Ordered By: Eduardo Hua on 12-16-2024 Calcium [Mass/Vol] 9.4 mg/dL 8.5-10.[address] [facility] Serum or plasma creatinine m easurement (mass/volume)Ordered By: Eduardo Hua on 07-02-2024 Creatinine [Mass/Vol] 0.84 mg/dL 0.55-1.02 [facility] Comment on above: The validity of the calculated GFR & GFRAA in patients over 70 years has not been determined. Clinical correlation is essential. Serum or plasma urea nitroge n measurement (mass/volume)Ordered By: Eduardo Paz on 07-02-2024 Urea nitrogen [Mass/Vol] 19 mg/dL High 7-18 [facility] Sodium levelOrdered By: Jack Paz on 07-02-2024 Sodium [Moles/Vol] 137 mmol/L 136-[address] [facility] White blood cell (WBC) count Ordered By: Eduardo Paz on 07-02-2024 WBC (Bld) [#/Vol] 5.2 10*3/uL 4.4-11.[address] [facility] CNPNon 06-29-2024 CNPN Normal [facility] Bacteria Ur Culton Bacteria identified Cx Nom (U) ORGANISM ID: 1 <10,000 CFU/ml Normal urogenital lawanda Normal [facility] Comment on above: Performed By: #### 6 30-4 ####[facility] [id number] [place] [address] [place] Urinalysis complete panel (U )on 06-28-2024 Bacteria LM.HPF (Urine sed) [#/Area] Negative Normal Negative [facility] Comment on above: Order Comment: Speci men Type: URINE SPECIMENOrdering Facility: [facility] Address: [address] [place] [address] Performed By: #### 2 4356-8 ####[facility] [id number] [place] [address] [place] Bilirubin Ql (U) Negative Normal Negative [facility] Comment on above: Order Comment: Speci men Type: URINE SPECIMENOrdering Facility: [facility] Address: [address] [place] [address] Performed By: #### 2 4356-8 ####[facility] [id number] [place] [address] [place] Clarity (Unsp spec) Clear Normal Clear [facility] Comment on above: Order Comment: Speci men Type: URINE SPECIMENOrdering Facility: [facility] Address: [address] [place] [address] Performed By: #### 2 4356-8 ####[facility] [id number] [place] [address] [place] Color (U) Yellow Normal Yellow [facility] Comment on above: Order Comment: Speci men Type: URINE SPECIMENOrdering Facility: [facility] Address: [address] [place] [address] Performed By: #### 2 4356-8 ####[facility] [id number] [place] [address] [place] Epithelial cells LM.HPF (Urine sed) [#/Area] None Seen Normal [facility] Comment on above: Order Comment: Speci men Type: URINE SPECIMENOrdering Facility: [facility] Address: [address] [place] [address] Performed By: #### 2 4356-8 ####[facility] [id number] [place] [address] [place] Glucose Test strip (U) [Mass/Vol] Negative Normal Negative [facility] Comment on above: Order Comment: Speci men Type: URINE SPECIMENOrdering Facility: [facility] Address: [address] [place] [address] Performed By: #### 2 4356-8 ####[facility] [id number] [address] [id number] [address] [place] Hemoglobin Ql (U) Negative Normal Negative [facility] Comment on above: Order Comment: Speci men Type: URINE SPECIMENOrdering Facility: [facility] Address: [address] [place] [address] Performed By: #### 2 4356-8 ####[facility] [id number] [place] [address] [place] Hyaline casts (Urine sed) [#/Area] 0 /[LPF] Normal 0 /LPF [facility] Comment on above: Order Comment: Speci men Type: URINE SPECIMENOrdering Facility: [facility] Address: [address] [place] [address] Performed By: #### 2 4356-8 ####[facility] [id number] [place] [address] [place] Ketones Ql (U) Negative Normal Negative [facility] Comment on above: Order Comment: Speci men Type: URINE SPECIMENOrdering Facility: [facility] Address: [address] [place] [address] Performed By: #### 2 4356-8 ####[facility] [id number] [place] [address] [place] Leukocyte esterase Test strip Ql (U) Trace Abnormal Negative [facility] Comment on above: Order Comment: Speci men Type: URINE SPECIMENOrdering Facility: [facility] Address: [address] [place] [address] Performed By: #### 2 4356-8 ####[facility] [id number] [place] [address] [place] Nitrite Ql (U) Negative Normal Negative [facility] Comment on above: Order Comment: Speci men Type: URINE SPECIMENOrdering Facility: [facility] Address: [address] [place] [address] Performed By: #### 2 4356-8 ####[facility] [id number] [place] [address] [place] pH (U) 6.0 [pH] Normal <8.5 [facility] Comment on above: Order Comment: Speci men Type: URINE SPECIMENOrdering Facility: [facility] Address: [address] [place] [address] Performed By: #### 2 4356-8 ####[facility] [id number] [place] [address] [place] Protein (U) [Mass/Vol] Negative Normal Negative Cl [facility] Comment on above: Order Comment: Speci men Type: URINE SPECIMENOrdering Facility: [facility] Address: [address] [place] [address] Performed By: #### 2 4356-8 ####[facility] [id number] [place] [address] [place] RBC LM.HPF (Urine sed) [#/Area] 0-2 /HPF Normal 0-2 /HPF [facility] Comment on above: Order Comment: Speci men Type: URINE SPECIMENOrdering Facility: [facility] Address: [address] [place] [address] Performed By: #### 2 4356-8 ####[facility] [id number] [place] [address] [place] Specific gravity (U) [Rel density] 1.013 Normal 1.005-1.030 [facility] Comment on above: Order Comment: Speci men Type: URINE SPECIMENOrdering Facility: [facility] Address: [address] [place] [address] Performed By: #### 2 4356-8 ####[facility] [id number] [place] [address] [place] Urobilinogen Ql (U) 0.2 EU/dL Normal 0.2-1.0 EU/dL [facility] Comment on above: Order Comment: Speci men Type: URINE SPECIMENOrdering Facility: [facility] Address: [address] [place], [place] [address] Performed By: #### 2 4356-8 ####[facility] [id number] [address] [address] [place] WBC LM.HPF (Urine sed) [#/Area] 6-10 /HPF Abnormal 0-5 /HPF [facility] Comment on above: Order Comment: Speci men Type: URINE SPECIMENOrdering Facility: [facility] Address: [address] [place], [place] [address] Performed By: #### 2 4356-8 ####[facility] [id number] [place] [id number] [place] CNPNon 06-26-2024 CNPN Normal [facility] CNPTOUTREACHon 06-21-2024 CNPTOUTREACH Normal [facility] 12 Lead EKG performed by BMS on 06-13-2024 12 Lead EKG performed by BMS Normal [facility] Cardiology Visit Reporton Cardiology Visit Report Normal [facility] CNOVon 06-11-2024 CNOV Normal [facility] Urine Cultureon 06-09-2024 URC Culture exhibits no growth. Normal [facility] Comment on above: Performed By: #### M 100.2200 ####[facility] [address] [place], [place], [address] Absolute neutrophil countOrd ered By: Amber Martino on 06-08-2024 Neutrophils (Bld) [#/Vol] 5.4 10*3/uL 2.0-7.7 [facility] Acetone Serumon 06-08-2024 ACETONE SERUM Negative Normal NEG [facility] Comment on above: Performed By: #### L 501.6900, L100.0100, L500.2500 ####[facility] [address] [place], [place], [address] Acetone [Mass/Vol]Ordered By : Amber Martino on 06-08-2024 Acetone Level Negative NEG [facility] Basic Metabolic Profile (BMP )on 06-08-2024 BUN/CRE 19.8 RATIO Normal 10-20 [facility] Comment on above: Performed By: #### L 501.6900, L100.0100, L500.2500 ####[facility] [address] [place], [address] CA,Total 8.8 mg/dL Normal 8.5-10.1 [facility] Comment on above: Performed By: #### L 501.6900, L100.0100, L500.2500 ####[facility] [address] [place], [address] Chloride [Moles/Vol] 102 mmol/L Normal 98-107 [facility] Comment on above: Performed By: #### L 501.6900, L100.0100, L500.2500 ####[facility] [address] [place], [address] CO2 [Moles/Vol] 27.0 mmol/L Normal 21.0-32.0 [facility] Comment on above: Performed By: #### L 501.6900, L100.0100, L500.2500 ####[facility] [address] [place], [address] Creatinine [Mass/Vol] 1.16 mg/dL High 0.55-1.02 [facility] Comment on above: Result Comment: The validity of the calculated GFR GFRAA in patients over70 years has not been determined. Clinical correlation isessential. Performed By: #### L 501.6900, L100.0100, L500.2500 ####[facility] [address] [place], [address] ECRCL 60.88 ml/min Normal [facility] Comment on above: Performed By: #### L 501.6900, L100.0100, L500.2500 ####[facility] [address] [place], [address] EST GFR - AA 58 mL/min Low >60 [facility] Comment on above: Result Comment: Afri can [place] GFR Calc Performed By: #### L 501.6900, L100.0100, L500.2500 ####[facility] [address] [place], [address] GAP 7 Normal 5-15 [facility] Comment on above: Performed By: #### L 501.6900, L100.0100, L500.2500 ####[facility] [address] [place], [address] GFR/1.73 sq M.predicted among non-blacks MDRD (S/P/Bld) [Vol rate/Area] 48 mL/min/{1.73_m2} Low >60 [facility] Comment on above: Result Comment: Non- GFR Calc Performed By: #### L 501.6900, L100.0100, L500.2500 ####[facility] [address] [place], [address] Glucose [Mass/Vol] 296 mg/dL High 74-[address] [facility] Comment on above: Result Comment: Gluc ose result greater than or equal to 200 mg/dLsuggests DIABETES MELLITUS per A.D.A. criteria. Performed By: #### L 501.6900, L100.0100, L500.2500 ####[facility] [address] [place], [address] Potassium [Moles/Vol] 3.8 mmol/L Normal 3.5-5.1 [facility] Comment on above: Performed By: #### L 501.6900, L100.0100, L500.2500 ####[facility] [address] [place], [address] Sodium [Moles/Vol] 136 mmol/L Normal 136-[address] [facility] Comment on above: Performed By: #### L 501.6900, L100.0100, L500.2500 ####[facility] [address] [place], [address] Urea nitrogen [Mass/Vol] 23 mg/dL High 7-18 [facility] Comment on above: Performed By: #### L 501.6900, L100.0100, L500.2500 ####[facility] [address] [place], [address] Basophil percentageOrdered B y: Amber Martino on 06-08-2024 Basophils/100 WBC (Bld) 0.6 % 0-1 [facility] Bedside Glucoseon 06-08-2024 FINGERSTICK GLU 274 mg/dL High 74-106 [facility] Comment on above: Result Comment: MERCEDES GEMENT OF PATIENT CARE PER NURSING PROTOCOL Performed By: #### L 501.080 ####[facility] [address] [place], [address] FINGERSTICK GLU 266 mg/dL High 74-106 [facility] Comment on above: Result Comment: MERCEDES GEMENT OF PATIENT CARE PER NURSING PROTOCOL Performed By: #### L 501.080 ####[facility] [address] [place], [address] FINGERSTICK GLU 291 mg/dL High 74-106 [facility] Comment on above: Result Comment: MERCEDES GEMENT OF PATIENT CARE PER NURSING PROTOCOL Performed By: #### L 501.080 ####[facility] [address] [place], [address] Bilirubin Test strip Ql (U)O rdered By: Amber Martino on 06-08-2024 Bilirubin Ql (U) Negative Negative [facility] Blood urea nitrogen (BUN)/cr eatinine ratioOrdered By: Amber Martino on 06-08-2024 Urea nitrogen/Creatinine [Mass ratio] 19.8 mg/mg 10-20 [facility] CBC W/Diff, Automatedon 11-2 2-2024 Absolute Lymph 1.02 X10 3/uL Normal 0.83-4.51 [facility] Comment on above: Performed By: #### L 501.6900, L100.0100, L500.2500 ####[facility] [address] [place], [address] Absolute Neut 5.4 X10 3/uL Normal 2.0-7.7 [facility] Comment on above: Performed By: #### L 501.6900, L100.0100, L500.2500 ####[facility] [address] [place], [address] Basophils/100 WBC (Bld) 0.6 % Normal 0-1 [facility] Comment on above: Performed By: #### L 501.6900, L100.0100, L500.2500 ####[facility] [address] [place], [address] Eosinophils/100 WBC (Bld) 3.5 % Normal 0-5 [facility] Comment on above: Performed By: #### L 501.6900, L100.0100, L500.2500 ####[facility] [address] [place], [address] Erythrocyte distribution width (RBC) [Ratio] 12.9 % Normal 11.6-14.6 [facility] Comment on above: Performed By: #### L 501.6900, L100.0100, L500.2500 ####[facility] [address] [place], [address] Hematocrit (Bld) [Volume fraction] 38.8 % Normal 37-47 [facility] Comment on above: Performed By: #### L 501.6900, L100.0100, L500.2500 ####[facility] [address] [place], [address] Hemoglobin (Bld) [Mass/Vol] 12.8 g/dL Normal 12.0-15.0 [facility] Comment on above: Performed By: #### L 501.6900, L100.0100, L500.2500 ####[facility] [address] [place], [address] IG% 0.000 Normal 0.0-0.9 [facility] Comment on above: Result Comment: IG% - Immature Granulocytes (promyelocytes, myelocytes andmetamyelocytes) > 1% indicates that a LEFT SHIFT is Present. Performed By: #### L 501.6900, L100.0100, L500.2500 ####[facility] [address] [place], [address] Lymphocytes/100 WBC (Bld) 14.2 % Low 19-41 [facility] Comment on above: Performed By: #### L 501.6900, L100.0100, L500.2500 ####[facility] [address] [place], [address] MCH (RBC) [Entitic mass] 29.2 pg Normal 27.0-32.0 [facility] Comment on above: Performed By: #### L 501.6900, L100.0100, L500.2500 ####[facility] [address] [place], [address] MCHC (RBC) [Mass/Vol] 33.0 g/dL Normal 32-36 [facility] Comment on above: Performed By: #### L 501.6900, L100.0100, L500.2500 ####[facility] [address] [place], [address] MCV (RBC) [Entitic vol] 88.4 fL Normal 81-99 [facility] Comment on above: Performed By: #### L 501.6900, L100.0100, L500.2500 ####[facility] [address] [place], [address] Monocytes/100 WBC (Bld) 7.5 % Normal 0-10 [facility] Comment on above: Performed By: #### L 501.6900, L100.0100, L500.2500 ####[facility] [address] [place], [address] Neutrophils/100 WBC (Bld) 74.2 % High 47-70 [facility] Comment on above: Performed By: #### L 501.6900, L100.0100, L500.2500 ####[facility] [address] [place], [address] Nucleated RBC (Bld) [#/Vol] 0 10*3/uL Normal 0-5 [facility] Comment on above: Performed By: #### L 501.6900, L100.0100, L500.2500 ####[facility] [address] [place], [address] Platelet mean volume (Bld) [Entitic vol] 12.7 fL High 6.2-12.0 [facility] Comment on above: Performed By: #### L 501.6900, L100.0100, L500.2500 ####[facility] [address] [place], [address] Platelets (Bld) [#/Vol] 162 10*3/uL Normal 150-450 [facility] Comment on above: Performed By: #### L 501.6900, L100.0100, L500.2500 ####[facility] [address] [place], [address] RBC (Bld) [#/Vol] 4.39 10*6/uL Normal 4.2-5.4 [facility] Comment on above: Performed By: #### L 501.6900, L100.0100, L500.2500 ####[facility] [address] [place], [address] RDW SD 42.1 fl Normal 35.1-43.9 [facility] Comment on above: Performed By: #### L 501.6900, L100.0100, L500.2500 ####[facility] [address] [place], [address] WBC (Bld) [#/Vol] 7.2 10*3/uL Normal 4.4-11.[address] [facility] Comment on above: Performed By: #### L 501.6900, L100.0100, L500.2500 ####[facility] [address] [place], [address] Carbon dioxide measurementOr dered By: Amber Martino on 06-08-2024 CO2 [Moles/Vol] 27.0 mmol/L 21.0-32.0 [facility] Chloride measurementOrdered By: Amber Martino on 06-08-2024 Chloride [Moles/Vol] 102 mmol/L 98-107 [facility] Emergency Department Summary on 06-08-2024 Emergency Department Summary Normal [facility] Eosinophil percentageOrdered By: Amber Martino on 06-08-2024 Eosinophils/100 WBC (Bld) 3.5 % 0-5 [facility] Epithelial cells.squamous LM Ql (Urine sed)Ordered By: Amber Martino on 06-08-2024 Epithelial cells.squamous LM.HPF (Urine sed) [#/Area] 0 /[HPF] 5-10 [facility] Erythrocyte distribution wid th ratioOrdered By: Amber Martino on 06-08-2024 Erythrocyte distribution width (RBC) [Ratio] 12.9 % 11.6-14.6 [facility] Erythrocyte distribution wid th standard deviationOrdered By: Amber Martino on 06-08-2024 Erythrocyte distribution width (RBC) [Entitic vol] 42.1 fL 35.1-43.9 [facility] Estimated glomerular filtrat ion rate (GFR) AmericanOrdered By: Amber Martino on 06-08-2024 Estimated GFR (MDRD) Amer 58 mL/min Low >60 [facility] Comment on above: GFR Calc Estimation of creatinine kimberly aranceOrdered By: Amber Martino on 06-08-2024 Estimated Creatinine Clearance Calc 60.88 ml/min [facility] Glomerular filtration rate ( GFR) estimationOrdered By: Amber Martino on 06-08-2024 Estimated GFR (MDRD) Non-Af Amer 48 mL/min Low >60 [facility] Comment on above: Non- GFR Calc Glucose Ql (U)Ordered By: Daniel Martino on 06-08-2024 Urine Glucose (UA) Normal mg/dl Normal [facility] Glucose measurementOrdered B y: Amber Martino on 06-08-2024 Glucose [Mass/Vol] 296 mg/dL High 74-[address] [facility] Comment on above: Glucose result great er than or equal to 200 mg/dLsuggests DIABETES MELLITUS per A.D.A. criteria. Gl[facility] at [facility] deOrdered By: Reyna Monzon on 06-08-2024 Bedside Glucose (Misc Panel) 274 mg/dL High 74-106 [facility] Comment on above: MANAGEMENT OF PATIEN T CARE PER NURSING PROTOCOL Hematocrit Auto (Bld) [Volum e fraction]Ordered By: Amber Martino on 06-08-2024 Hematocrit (Bld) [Volume fraction] 38.8 % 37-47 [facility] Hemoglobin measurementOrdere d By: Amber Martino on 06-08-2024 Hemoglobin (Bld) [Mass/Vol] 12.8 g/dL 12.0-15.0 [facility] Immature granulocytes/100 WB C Auto (Bld)Ordered By: Amber Martino on 06-08-2024 Immature granulocytes/100 WBC (Bld) 0.000 % 0.0-0.9 [facility] Comment on above: IG% - Immature Granu locytes (promyelocytes, myelocytes and metamyelocytes) > 1% indicates that a LEFT SHIFT is Present. Ketones Test strip Ql (U)Ord ered By: Amber Martino on 06-08-2024 Ketones Ql (U) Negative Negative [facility] Lymphocytes Auto (Unsp spec) [#/Vol]Ordered By: Amber Martino on 06-08-2024 Lymphocytes (Bld) [#/Vol] 1.02 10*3/uL 0.83-4.51 [facility] Lymphocytes/100 WBC Auto (Un sp spec)Ordered By: Amber Martino on 06-08-2024 Lymphocytes/100 WBC (Bld) 14.2 % Low 19-41 [facility] MCV (mean corpuscular volume ) determinationOrdered By: Amber Martino on 06-08-2024 MCV (RBC) [Entitic vol] 88.4 fL 81-99 [facility] Mean corpuscular hemoglobin (MCH) determinationOrdered By: Amber Martino on 06-08-2024 MCH (RBC) [Entitic mass] 29.2 pg 27.0-32.0 [facility] Mean corpuscular hemoglobin concentration (MCHC) determinationOrdered By: Amber Martino on 06-08-2024 MCHC (RBC) [Mass/Vol] 33.0 g/dL 32-36 [facility] Mean platelet volume determi nationOrdered By: Amber Martino on 06-08-2024 Platelet mean volume (Bld) [Entitic vol] 12.7 fL High 6.2-12.0 [facility] Microscopic analysis of urin e for red blood cells (RBC)Ordered By: Amber Martino on 06-08-2024 Urine RBC 0-5 SEEN /hpf 0-5 [facility] Monocyte percentageOrdered B y: Amber Martino on 06-08-2024 Monocytes/100 WBC (Bld) 7.5 % 0-10 [facility] Mucus LM Ql (Urine sed)Order ed By: Amber Martino on 06-08-2024 Mucus Ql (Urine sed) 0 SEEN /hpf [facility] Neutrophil percentageOrdered By: Amber Martino on 06-08-2024 Neutrophils/100 WBC (Bld) 74.2 % High 47-70 [facility] Nitrite Test strip Ql (U)Ord ered By: Amber Martino on 06-08-2024 Nitrite Ql (U) Negative Negative [facility] Nucleated red blood cell per centageOrdered By: Amber Martino on 06-08-2024 Nucleated RBC/100 WBC (Bld) [Ratio] 0 % 0-5 [facility] Platelet countOrdered By: Daniel ramirez Salena on 06-08-2024 Platelets (Bld) [#/Vol] 162 10*3/uL 150-450 [facility] Potassium measurementOrdered By: Amber Martino on 06-08-2024 Potassium [Moles/Vol] 3.8 mmol/L 3.5-5.1 [facility] Protein Test strip Ql (U)Ord ered By: Amber Martino on 06-08-2024 Protein Ql (U) Negative Negative [facility] RBC Auto (Bld) [#/Vol]Ordere d By: Ambergm Martino on 06-08-2024 RBC (Bld) [#/Vol] 4.39 10*6/uL 4.2-5.4 [facility] Serum anion gap measurementO rdered By: Amber Martino on 06-08-2024 Anion gap [Moles/Vol] 7 mmol/L 5-15 [facility] Serum or plasma calcium zora urement (mass/volume)Ordered By: Amber Martino on 06-08-2024 Calcium [Mass/Vol] 8.8 mg/dL 8.5-10.[address] [facility] Serum or plasma creatinine m easurement (mass/volume)Ordered By: Amber Martino on 06-08-2024 Creatinine [Mass/Vol] 1.16 mg/dL High 0.55-1.02 [facility] Comment on above: The validity of the calculated GFR & GFRAA in patients over 70 years has not been determined. Clinical correlation is essential. Serum or plasma urea nitroge n measurement (mass/volume)Ordered By: Amber Martino on 06-08-2024 Urea nitrogen [Mass/Vol] 23 mg/dL High 7-18 [facility] Sodium levelOrdered By: Amber Martino on 06-08-2024 Sodium [Moles/Vol] 136 mmol/L 136-[address] [facility] Urinalysis, Completeon 06-08 BACTERIA 1+ /hpf Normal None Seen [facility] Comment on above: Order Comment: CLEAN CATCH Performed By: #### L 400.0001 ####[facility] [address] [place], [address] RBC 0-5 SEEN Normal 0-5 [facility] Comment on above: Order Comment: CLEAN CATCH Performed By: #### L 400.0001 ####[facility] [address] [place], [address] WBC 5-10 SEEN Normal 0-5 [facility] Comment on above: Order Comment: CLEAN CATCH Performed By: #### L 400.0001 ####[facility] [address] [place], [address] EPI,SQUAMOUS 0 SEEN Normal 5-10 [facility] Comment on above: Order Comment: CLEAN CATCH Performed By: #### L 400.0001 ####[facility] [address] [place], [address] Mucus Ql (Urine sed) 0 SEEN Normal [facility] Comment on above: Order Comment: CLEAN CATCH Performed By: #### L 400.0001 ####[facility] [address] [place], [address] Urine blood detectionOrdered By: Amber Martino on 06-08-2024 Urine Occult Blood 10 /ul High Negative [facility] Urine clarityOrdered By: Venita Martino on 06-08-2024 Clarity (U) Sl. Cloudy Clear [facility] Urine color determinationOrd ered By: Amber Martino on 06-08-2024 Color (U) Straw Yellow [facility] Urine cultureOrdered By: Venita Martino on 06-08-2024 Bacteria identified Cx Nom (U) Culture exhibits no growth. [facility] Bacteria identified Cx Nom (U) Culture exhibits no growth. [facility] Urine leukocyte esterase det ection by dipstickOrdered By: Amber Martino on 06-08-2024 Leukocyte esterase Test strip Ql (U) 500 /ul High Negative [facility] Urine pHOrdered By: Amber magallanes on 06-08-2024 pH (U) 6.0 [pH] 5.0 - 8.0 [facility] Urine sediment bacteria coun t by microscopy (number/high power field)Ordered By: Ambergm Martino on 06-08-2024 Bacteria LM.HPF (Urine sed) [#/Area] 1 /[HPF] None Seen [facility] Urine specific gravity measu rementOrdered By: Ambergm Martino on 06-08-2024 Specific gravity (U) [Rel density] 1.010 1.002-1.030 [facility] Urobilinogen Ql (U)Ordered B y: Amber Salena on 06-08-2024 Urine Urobilinogen Normal mg/dl Normal [facility] White blood cell (WBC) count Ordered By: Amber Martino on 06-08-2024 WBC (Bld) [#/Vol] 7.2 10*3/uL 4.4-11.[address] [facility] White blood cell countOrdere d By: Ambre Martino on 06-08-2024 Urine WBC 5-10 SEEN /hpf 0-5 [facility] Bedside Glucoseon 06-07-2024 FINGERSTICK GLU 217 mg/dL High 74-106 [facility] Comment on above: Result Comment: MERCEDES GEMENT OF PATIENT CARE PER NURSING PROTOCOL Performed By: #### L 501.080 ####[facility] [address] [place], [place], [id number] Echo Complete W/ Contraston 06-07-2024 Echo Complete W/ Contrast Normal [facility] de[facility]dered By: Areli Estevez on 06-07-2024 Bedside Glucose (Misc Panel) 217 mg/dL High 74-106 [facility] Comment on above: MANAGEMENT OF PATIEN T CARE PER NURSING PROTOCOL Stress Reporton 06-07-2024 Stress Report Normal [facility] Stress Report Normal [facility] CNPTOUTREACHon 06-06-2024 CNPTOUTREACH Normal [facility] CNPNon 05-31-2024 CNPN Normal [facility] Absolute neutrophil countOrd ered By: Lars Dahl on 05-27-2024 Neutrophils (Bld) [#/Vol] 3.8 10*3/uL 2.0-7.7 [facility] BNP (brain natriuretic pepti de measurement)Ordered By: Lars Dahl on 05-27-2024 Natriuretic peptide B (Bld) [Mass/Vol] 97.6 pg/mL 0-100 [facility] BNP,B-Type NATRIURETIC PEPTI Vargas 05-27-2024 Natriuretic peptide B (Bld) [Mass/Vol] 97.6 pg/mL Normal 0-100 [facility] Comment on above: Performed By: #### L 503.6620, L501.9520, L100.0100, L501.5425, L500.2500 ####[facility] [address] [place], [address] Basic Metabolic Profile (BMP )on 05-27-2024 BUN/CRE 21.6 RATIO High 10-20 [facility] Comment on above: Order Comment: 1Y Performed By: #### L 503.6620, L501.9520, L100.0100, L501.5425, L500.2500 ####[facility] [address] [place], [address] CA,Total 8.7 mg/dL Normal 8.5-10.1 [facility] Comment on above: Order Comment: 1Y Performed By: #### L 503.6620, L501.9520, L100.0100, L501.5425, L500.2500 ####[facility] [address] [place], [address] Chloride [Moles/Vol] 108 mmol/L High 98-107 [facility] Comment on above: Order Comment: 1Y Performed By: #### L 503.6620, L501.9520, L100.0100, L501.5425, L500.2500 ####[facility] [address] [place], [address] CO2 [Moles/Vol] 27.0 mmol/L Normal 21.0-32.0 [facility] Comment on above: Order Comment: 1Y Performed By: #### L 503.6620, L501.9520, L100.0100, L501.5425, L500.2500 ####[facility] [address] [place], [address] Creatinine [Mass/Vol] 1.02 mg/dL Normal 0.55-1.02 [facility] Comment on above: Order Comment: 1Y Result Comment: The validity of the calculated GFR GFRAA in patients over70 years has not been determined. Clinical correlation isessential. Performed By: #### L 503.6620, L501.9520, L100.0100, L501.5425, L500.2500 ####[facility] [address] [place], [address] EST GFR - AA 67 mL/min Normal >60 [facility] Comment on above: Order Comment: 1Y Result Comment: Afri can [place] GFR Calc Performed By: #### L 503.6620, L501.9520, L100.0100, L501.5425, L500.2500 ####[facility] [address] [place], [address] GAP 4 Low 5-15 [facility] Comment on above: Order Comment: 1Y Performed By: #### L 503.6620, L501.9520, L100.0100, L501.5425, L500.2500 ####[facility] [address] [place], [address] GFR/1.73 sq M.predicted among non-blacks MDRD (S/P/Bld) [Vol rate/Area] 56 mL/min/{1.73_m2} Low >60 [facility] Comment on above: Order Comment: 1Y Result Comment: Non- GFR Calc Performed By: #### L 503.6620, L501.9520, L100.0100, L501.5425, L500.2500 ####[facility] [address] [place], [address] Glucose [Mass/Vol] 152 mg/dL High 74-[address] [facility] Comment on above: Order Comment: 1Y Result Comment: Fast ing Glucose result greater than or equal to 126 mg/dLsuggests DIABETES MELLITUS per A.D.A. criteria. Performed By: #### L 503.6620, L501.9520, L100.0100, L501.5425, L500.2500 ####[facility] [address] [place], [address] Potassium [Moles/Vol] 3.8 mmol/L Normal 3.5-5.1 [facility] Comment on above: Order Comment: 1Y Performed By: #### L 503.6620, L501.9520, L100.0100, L501.5425, L500.2500 ####[facility] [address] [place], [address] Sodium [Moles/Vol] 139 mmol/L Normal 136-[address] [facility] Comment on above: Order Comment: 1Y Performed By: #### L 503.6620, L501.9520, L100.0100, L501.5425, L500.2500 ####[facility] [address] [place], [address] Urea nitrogen [Mass/Vol] 22 mg/dL High -18 [facility] Comment on above: Order Comment: 1Y Performed By: #### L 503.6620, L501.9520, L100.0100, L501.5425, L500.2500 ####[facility] [address] [place], [address] Basophil percentageOrdered B y: Lars Dahl on 05-27-2024 Basophils/100 WBC (Bld) 0.5 % 0- [facility] Blood urea nitrogen (BUN)/cr eatinine ratioOrdered By: Lars Dahl on 05-27-2024 Urea nitrogen/Creatinine [Mass ratio] 21.6 mg/mg High 05-06 [facility] CBC W/Diff, Automatedon 05-18 Absolute Lymph 1.24 X10 3/uL Normal 0.83-4.51 [facility] Comment on above: Performed By: #### L 503.6620, L501.9520, L100.0100, L501.5425, L500.2500 ####[facility] [address] [place], [address] Absolute Neut 3.8 X10 3/uL Normal 2.0-7.7 [facility] Comment on above: Performed By: #### L 503.6620, L501.9520, L100.0100, L501.5425, L500.2500 ####[facility] [address] [place], [address] Basophils/100 WBC (Bld) 0.5 % Normal 0-1 [facility] Comment on above: Performed By: #### L 503.6620, L501.9520, L100.0100, L501.5425, L500.2500 ####[facility] [address] [place], [address] Eosinophils/100 WBC (Bld) 5.5 % High 0-5 [facility] Comment on above: Performed By: #### L 503.6620, L501.9520, L100.0100, L501.5425, L500.2500 ####[facility] [address] [place], [address] Erythrocyte distribution width (RBC) [Ratio] 12.9 % Normal 11.6-14.6 [facility] Comment on above: Performed By: #### L 503.6620, L501.9520, L100.0100, L501.5425, L500.2500 ####[facility] [address] [place], [address] Hematocrit (Bld) [Volume fraction] 37.2 % Normal 37-47 [facility] Comment on above: Performed By: #### L 503.6620, L501.9520, L100.0100, L501.5425, L500.2500 ####[facility] [address] [place], [address] Hemoglobin (Bld) [Mass/Vol] 12.2 g/dL Normal 12.0-15.0 [facility] Comment on above: Performed By: #### L 503.6620, L501.9520, L100.0100, L501.5425, L500.2500 ####[facility] [address] [place], [address] IG% 0.200 Normal 0.0-0.9 [facility] Comment on above: Result Comment: IG% - Immature Granulocytes (promyelocytes, myelocytes andmetamyelocytes) > 1% indicates that a LEFT SHIFT is Present. Performed By: #### L 503.6620, L501.9520, L100.0100, L501.5425, L500.2500 ####[facility] [address] [place], [address] Lymphocytes/100 WBC (Bld) 21.2 % Normal 19-41 [facility] Comment on above: Performed By: #### L 503.6620, L501.9520, L100.0100, L501.5425, L500.2500 ####[facility] [address] [place], [address] MCH (RBC) [Entitic mass] 29.0 pg Normal 27.0-32.0 [facility] Comment on above: Performed By: #### L 503.6620, L501.9520, L100.0100, L501.5425, L500.2500 ####[facility] [address] [place], [address] MCHC (RBC) [Mass/Vol] 32.8 g/dL Normal 32-36 [facility] Comment on above: Performed By: #### L 503.6620, L501.9520, L100.0100, L501.5425, L500.2500 ####[facility] [address] [place], [address] MCV (RBC) [Entitic vol] 88.4 fL Normal 81-99 [facility] Comment on above: Performed By: #### L 503.6620, L501.9520, L100.0100, L501.5425, L500.2500 ####[facility] [address] [place], [address] Monocytes/100 WBC (Bld) 8.2 % Normal 0-10 [facility] Comment on above: Performed By: #### L 503.6620, L501.9520, L100.0100, L501.5425, L500.2500 ####[facility] [address] [place], [address] Neutrophils/100 WBC (Bld) 64.4 % Normal 47-70 [facility] Comment on above: Performed By: #### L 503.6620, L501.9520, L100.0100, L501.5425, L500.2500 ####[facility] [address] [place], [address] Nucleated RBC (Bld) [#/Vol] 0 10*3/uL Normal 0-5 [facility] Comment on above: Performed By: #### L 503.6620, L501.9520, L100.0100, L501.5425, L500.2500 ####[facility] [address] [place], [address] Platelet mean volume (Bld) [Entitic vol] 12.6 fL High 6.2-12.0 [facility] Comment on above: Performed By: #### L 503.6620, L501.9520, L100.0100, L501.5425, L500.2500 ####[facility] [address] [place], [address] Platelets (Bld) [#/Vol] 185 10*3/uL Normal 150-450 [facility] Comment on above: Performed By: #### L 503.6620, L501.9520, L100.0100, L501.5425, L500.2500 ####[facility] [address] [place], [address] RBC (Bld) [#/Vol] 4.21 10*6/uL Normal 4.2-5.4 [facility] Comment on above: Performed By: #### L 503.6620, L501.9520, L100.0100, L501.5425, L500.2500 ####[facility] [address] [place], [address] RDW SD 41.8 fl Normal 35.1-43.9 [facility] Comment on above: Performed By: #### L 503.6620, L501.9520, L100.0100, L501.5425, L500.2500 ####[facility] [address] [place], [address] WBC (Bld) [#/Vol] 5.8 10*3/uL Normal 4.4-11.[address] [facility] Comment on above: Performed By: #### L 503.6620, L501.9520, L100.0100, L501.5425, L500.2500 ####[facility] [address] [place], [address] Carbon dioxide measurementOr dered By: Lars Dahl on 05-27-2024 CO2 [Moles/Vol] 27.0 mmol/L 21.0-32.0 [facility] Chest PA and Lateralon 05-27 Chest PA and Lateral Normal [facility] Chloride measurementOrdered By: Lars Dahl on 05-27-2024 Chloride [Moles/Vol] 108 mmol/L High 98-107 [facility] Emergency Department Summary on 05-27-2024 Emergency Department Summary Normal [facility] Eosinophil percentageOrdered By: Lars Dahl on 05-27-2024 Eosinophils/100 WBC (Bld) 5.5 % High 0-5 [facility] Erythrocyte distribution wid th ratioOrdered By: Lars Dahl on 05-27-2024 Erythrocyte distribution width (RBC) [Ratio] 12.9 % 11.6-14.6 [facility] Erythrocyte distribution wid th standard deviationOrdered By: Lars Dahl on 05-27-2024 Erythrocyte distribution width (RBC) [Entitic vol] 41.8 fL 35.1-43.9 [facility] Estimated glomerular filtrat ion rate (GFR) AmericanOrdered By: Lars Dahl on 05-27-2024 Estimated GFR (MDRD) Amer 67 mL/min >60 [facility] Comment on above: GFR Calc Glomerular filtration rate ( GFR) estimationOrdered By: Lars Dahl on 05-27-2024 Estimated GFR (MDRD) Non-Af Amer 56 mL/min Low >60 [facility] Comment on above: Non- GFR Calc Glucose measurementOrdered B y: Lars Dahl on 05-27-2024 Glucose [Mass/Vol] 152 mg/dL High 74-[address] [facility] Comment on above: Fasting Glucose resu lt greater than or equal to 126 mg/dL suggests DIABETES MELLITUS per A.D.A. criteria. Hematocrit Auto (Bld) [Volum e fraction]Ordered By: Lars Dahl on 05-27-2024 Hematocrit (Bld) [Volume fraction] 37.2 % 37-47 [facility] [facility] Hemoglobin measurementOrdere d By: Lars Dahl on 05-27-2024 Hemoglobin (Bld) [Mass/Vol] 12.2 g/dL 12.0-15.0 [facility] Immature granulocytes/100 WB C Auto (Bld)Ordered By: Lars Dahl on 05-27-2024 Immature granulocytes/100 WBC (Bld) 0.200 % 0.0-0.9 [facility] Comment on above: IG% - Immature Granu locytes (promyelocytes, myelocytes and metamyelocytes) > 1% indicates that a LEFT SHIFT is Present. L501.4020on 05-27-2024 TROPONIN-I HS 10 pg/mL Normal 3.0-54.0 [facility] Comment on above: Result Comment: Plea se Note: New Test Units and Gender Specific Reference Ranges. For more information see Policy Stat Procedure [place] High Sensitivity Troponin (TNIH) and attachments. Performed By: #### L 501.4020 ####[facility] [address] [place], [address] L501.5425on 05-27-2024 TROPONIN-I HS 9 pg/mL Normal 3.0-54.0 [facility] Comment on above: Order Comment: 1Y Result Comment: Plea se Note: New Test Units and Gender Specific Reference Ranges. For more information see Policy Stat Procedure [place] High Sensitivity Troponin (TNIH) and attachments. Performed By: #### L 503.6620, L501.9520, L100.0100, L501.5425, L500.2500 ####[facility] [address] [place], [address] Lymphocytes Auto (Unsp spec) [#/Vol]Ordered By: Lars Dahl on 05-27-2024 Lymphocytes (Bld) [#/Vol] 1.24 10*3/uL 0.83-4.51 [facility] Lymphocytes/100 WBC Auto (Un sp spec)Ordered By: Lars Dahl on 05-27-2024 Lymphocytes/100 WBC (Bld) 21.2 % 19-41 [facility] MCV (mean corpuscular volume ) determinationOrdered By: Lars Dahl on 05-27-2024 MCV (RBC) [Entitic vol] 88.4 fL 81-99 [facility] Mean corpuscular hemoglobin (MCH) determinationOrdered By: Lars Dahl on 05-27-2024 MCH (RBC) [Entitic mass] 29.0 pg 27.0-32.0 [facility] Mean corpuscular hemoglobin concentration (MCHC) determinationOrdered By: Lars Dahl on 05-27-2024 MCHC (RBC) [Mass/Vol] 32.8 g/dL 32-36 [facility] Mean platelet volume determi nationOrdered By: Lars Dahl on 05-27-2024 Platelet mean volume (Bld) [Entitic vol] 12.6 fL High 6.2-12.0 [facility] Monocyte percentageOrdered B y: Lars Dahl on 05-27-2024 Monocytes/100 WBC (Bld) 8.2 % 0-10 [facility] Neutrophil percentageOrdered By: Lars Dahl on 05-27-2024 Neutrophils/100 WBC (Bld) 64.4 % 47-70 [facility] Nucleated red blood cell per centageOrdered By: Lars Dahl on 05-27-2024 Nucleated RBC/100 WBC (Bld) [Ratio] 0 % 0-5 [facility] Platelet countOrdered By: Lazaro Dahl on 05-27-2024 Platelets (Bld) [#/Vol] 185 10*3/uL 150-450 [facility] Potassium measurementOrdered By: Lars Dahl on 05-27-2024 Potassium [Moles/Vol] 3.8 mmol/L 3.5-5.1 [facility] RBC Auto (Bld) [#/Vol]Ordere d By: Lars Dahl on 05-27-2024 RBC (Bld) [#/Vol] 4.21 10*6/uL 4.2-5.4 [facility] Serum anion gap measurementO rdered By: Lars Dahl on 05-27-2024 Anion gap [Moles/Vol] 4 mmol/L Low 5-15 [facility] Serum or plasma calcium zora urement (mass/volume)Ordered By: Lars Dahl on 05-27-2024 Calcium [Mass/Vol] 8.7 mg/dL 8.5-10.[address] [facility] Serum or plasma creatinine m easurement (mass/volume)Ordered By: Lars Dahl on 05-27-2024 Creatinine [Mass/Vol] 1.02 mg/dL 0.55-1.02 [facility] Comment on above: The validity of the calculated GFR & GFRAA in patients over 70 years has not been determined. Clinical correlation is essential. Serum or plasma urea nitroge n measurement (mass/volume)Ordered By: Lars Dahl on 05-27-2024 Urea nitrogen [Mass/Vol] 22 mg/dL High 7-18 [facility] Sodium levelOrdered By: Jorge Dahl on 05-27-2024 Sodium [Moles/Vol] 139 mmol/L 136-[address] [facility] TSH QnOrdered By: Lars judd on 05-27-2024 Thyroid Stimulating Hormone (TSH) 2.300 uIU/mL 0.358-3.740 [facility] Thyroid Stim Hormone (TSH)on 05-27-2024 TSH 2.300 uIU/mL Normal 0.358-3.740 [facility] Comment on above: Order Comment: 1Y Performed By: #### L 503.6620, L501.9520, L100.0100, L501.5425, L500.2500 ####[facility] [address] [place], [address] Troponin IOrdered By: Lars Dahl on 05-27-2024 Troponin I High Sensitivity 10 pg/mL 3.0-54.0 [facility] Comment on above: Please Note: New Mariajose t Units and Gender Specific Reference Ranges. For more information see Policy Stat Procedure [place] High Sensitivity Troponin (TNIH) and attachments. White blood cell (WBC) count Ordered By: Lars Dahl on 05-27-2024 WBC (Bld) [#/Vol] 5.8 10*3/uL 4.4-11.[address] [facility] 12 Lead EKGon 05-25-2024 12 Lead EKG Normal [facility] Absolute neutrophil countOrd ered By: Reyna Monzon on 05-25-2024 Neutrophils (Bld) [#/Vol] 5.6 10*3/uL 2.0-7.7 [facility] Albumin to globulin ratioOrd ered By: Reyna Monzon on 05-25-2024 Albumin/Globulin [Mass ratio] 0.9 {ratio} 0.9-2.4 [facility] Basophil percentageOrdered B y: Reyna Monzon on 05-25-2024 Basophils/100 WBC (Bld) 0.4 % 0-1 [facility] Bilirubin, totalOrdered By: Reyna Monzon on 05-25-2024 Bilirubin [Mass/Vol] 1.20 mg/dL High 0.20-1.00 [facility] Comment on above: For patients on eltr ombopag therapy, use of Dimension [place] TBIL is not recommended. Blood urea nitrogen (BUN)/cr eatinine ratioOrdered By: Reyna Na on 05-25-2024 Urea nitrogen/Creatinine [Mass ratio] 23.0 mg/mg High 10-20 [facility] CBC W/Diff, Automatedon 11-0 Absolute Lymph 0.73 X10 3/uL Low 0.83-4.51 [facility] Comment on above: Performed By: #### L 501.4020, L501.2450, L100.0100, L500.4050 ####[facility] [address] [place], [address] Absolute Neut 5.6 X10 3/uL Normal 2.0-7.7 [facility] Comment on above: Performed By: #### L 501.4020, L501.2450, L100.0100, L500.4050 ####[facility] [address] [place], [address] Basophils/100 WBC (Bld) 0.4 % Normal 0-1 [facility] Comment on above: Performed By: #### L 501.4020, L501.2450, L100.0100, L500.4050 ####[facility] [address] [place], [address] Eosinophils/100 WBC (Bld) 3.7 % Normal 0-5 [facility] Comment on above: Performed By: #### L 501.4020, L501.2450, L100.0100, L500.4050 ####[facility] [address] [place], [address] Erythrocyte distribution width (RBC) [Ratio] 12.7 % Normal 11.6-14.6 [facility] Comment on above: Performed By: #### L 501.4020, L501.2450, L100.0100, L500.4050 ####[facility] [address] [place], [address] Hematocrit (Bld) [Volume fraction] 40.0 % Normal 37-47 [facility] Comment on above: Performed By: #### L 501.4020, L501.2450, L100.0100, L500.4050 ####[facility] [address] [place], [address] Hemoglobin (Bld) [Mass/Vol] 13.0 g/dL Normal 12.0-15.0 [facility] Comment on above: Performed By: #### L 501.4020, L501.2450, L100.0100, L500.4050 ####[facility] [address] [place], [address] IG% 0.300 Normal 0.0-0.9 [facility] Comment on above: Result Comment: IG% - Immature Granulocytes (promyelocytes, myelocytes andmetamyelocytes) > 1% indicates that a LEFT SHIFT is Present. Performed By: #### L 501.4020, L501.2450, L100.0100, L500.4050 ####[facility] [address] [place], [address] Lymphocytes/100 WBC (Bld) 10.3 % Low 19-41 [facility] Comment on above: Performed By: #### L 501.4020, L501.2450, L100.0100, L500.4050 ####[facility] [address] [place], [address] MCH (RBC) [Entitic mass] 29.0 pg Normal 27.0-32.0 [facility] Comment on above: Performed By: #### L 501.4020, L501.2450, L100.0100, L500.4050 ####[facility] [address] [place], [address] MCHC (RBC) [Mass/Vol] 32.5 g/dL Normal 32-36 [facility] Comment on above: Performed By: #### L 501.4020, L501.2450, L100.0100, L500.4050 ####[facility] [address] [place], [address] MCV (RBC) [Entitic vol] 89.3 fL Normal 81-99 [facility] Comment on above: Performed By: #### L 501.4020, L501.2450, L100.0100, L500.4050 ####[facility] [address] [place], [address] Monocytes/100 WBC (Bld) 6.2 % Normal 0-10 [facility] Comment on above: Performed By: #### L 501.4020, L501.2450, L100.0100, L500.4050 ####[facility] [address] [place], [address] Neutrophils/100 WBC (Bld) 79.1 % High 47-70 [facility] Comment on above: Performed By: #### L 501.4020, L501.2450, L100.0100, L500.4050 ####[facility] [address] [place], [address] Nucleated RBC (Bld) [#/Vol] 0 10*3/uL Normal 0-5 [facility] Comment on above: Performed By: #### L 501.4020, L501.2450, L100.0100, L500.4050 ####[facility] [address] [place], [address] Platelet mean volume (Bld) [Entitic vol] 12.7 fL High 6.2-12.0 [facility] Comment on above: Performed By: #### L 501.4020, L501.2450, L100.0100, L500.4050 ####[facility] [address] [place], [address] Platelets (Bld) [#/Vol] 173 10*3/uL Normal 150-450 [facility] Comment on above: Performed By: #### L 501.4020, L501.2450, L100.0100, L500.4050 ####[facility] [address] [place], [address] RBC (Bld) [#/Vol] 4.48 10*6/uL Normal 4.2-5.4 [facility] Comment on above: Performed By: #### L 501.4020, L501.2450, L100.0100, L500.4050 ####[facility] [address] [place], [address] RDW SD 41.4 fl Normal 35.1-43.9 [facility] Comment on above: Performed By: #### L 501.4020, L501.2450, L100.0100, L500.4050 ####[facility] [address] [place], [address] WBC (Bld) [#/Vol] 7.1 10*3/uL Normal 4.4-11.[address] [facility] Comment on above: Performed By: #### L 501.4020, L501.2450, L100.0100, L500.4050 ####[facility] [address] [place], [address] CNPNon 05-25-2024 CNPN Normal [facility] Carbon dioxide measurementOr dered By: Reyna Monzon on 05-25-2024 CO2 [Moles/Vol] 25.0 mmol/L 21.0-32.0 [facility] Chest PA and Lateralon 05-25 Chest PA and Lateral Normal [facility] Chloride measurementOrdered By: Reyna Monzon on 05-25-2024 Chloride [Moles/Vol] 103 mmol/L 98-107 [facility] Comprehensive Metabolic Prof ilon 05-25-2024 Albumin [Mass/Vol] 3.3 g/dL Normal 3.2-5.[address] [facility] Comment on above: Order Comment: 'TROP ' Serial specimen #1, #2 or #3: 1 Performed By: #### L 501.4020, L501.2450, L100.0100, L500.4050 ####[facility] [address] [place], [address] Albumin/Globulin [Mass ratio] 0.9 {ratio} Normal 0.9-2.4 [facility] Comment on above: Order Comment: 'TROP ' Serial specimen #1, #2 or #3: 1 Performed By: #### L 501.4020, L501.2450, L100.0100, L500.4050 ####[facility] [address] [place], [address] ALK P 82 U/L Normal 45-117 [facility] Comment on above: Order Comment: 'TROP ' Serial specimen #1, #2 or #3: 1 Performed By: #### L 501.4020, L501.2450, L100.0100, L500.4050 ####[facility] [address] [place], [address] ALT [Catalytic activity/Vol] 20 U/L Normal 13-56 [facility] Comment on above: Order Comment: 'TROP ' Serial specimen #1, #2 or #3: 1 Performed By: #### L 501.4020, L501.2450, L100.0100, L500.4050 ####[facility] [address] [place], [address] AST [Catalytic activity/Vol] 15 U/L Normal 15-37 [facility] Comment on above: Order Comment: 'TROP ' Serial specimen #1, #2 or #3: 1 Performed By: #### L 501.4020, L501.2450, L100.0100, L500.4050 ####[facility] [address] [place], [address] Bilirubin [Mass/Vol] 1.20 mg/dL High 0.20-1.00 [facility] Comment on above: Order Comment: 'TROP ' Serial specimen #1, #2 or #3: 1 Result Comment: For patients on eltrombopag therapy, use of Dimension [place] TBIL is not recommended. Performed By: #### L 501.4020, L501.2450, L100.0100, L500.4050 ####[facility] [address] [place], [address] BUN/CRE 23.0 RATIO High 10-20 [facility] Comment on above: Order Comment: 'TROP ' Serial specimen #1, #2 or #3: 1 Performed By: #### L 501.4020, L501.2450, L100.0100, L500.4050 ####[facility] [address] [place], [address] CA,Total 9.1 mg/dL Normal 8.5-10.1 [facility] Comment on above: Order Comment: 'TROP ' Serial specimen #1, #2 or #3: 1 Performed By: #### L 501.4020, L501.2450, L100.0100, L500.4050 ####[facility] [address] [place], [address] Chloride [Moles/Vol] 103 mmol/L Normal 98-107 [facility] Comment on above: Order Comment: 'TROP ' Serial specimen #1, #2 or #3: 1 Performed By: #### L 501.4020, L501.2450, L100.0100, L500.4050 ####[facility] [address] [place], [address] CO2 [Moles/Vol] 25.0 mmol/L Normal 21.0-32.0 [facility] Comment on above: Order Comment: 'TROP ' Serial specimen #1, #2 or #3: 1 Performed By: #### L 501.4020, L501.2450, L100.0100, L500.4050 ####[facility] [address] [place], [address] Creatinine [Mass/Vol] 0.87 mg/dL Normal 0.55-1.02 [facility] Comment on above: Order Comment: 'TROP ' Serial specimen #1, #2 or #3: 1 Result Comment: The validity of the calculated GFR GFRAA in patients over70 years has not been determined. Clinical correlation isessential. Performed By: #### L 501.4020, L501.2450, L100.0100, L500.4050 ####[facility] [address] [place], [address] ECRCL 81.14 ml/min Normal [facility] Comment on above: Order Comment: 'TROP ' Serial specimen #1, #2 or #3: 1 Performed By: #### L 501.4020, L501.2450, L100.0100, L500.4050 ####[facility] [address] [place], [address] EST GFR - AA 81 mL/min Normal >60 [facility] Comment on above: Order Comment: 'TROP ' Serial specimen #1, #2 or #3: 1 Result Comment: Afri can [place] GFR Calc Performed By: #### L 501.4020, L501.2450, L100.0100, L500.4050 ####[facility] [address] [place], [address] GAP 8 Normal 5-15 [facility] Comment on above: Order Comment: 'TROP ' Serial specimen #1, #2 or #3: 1 Performed By: #### L 501.4020, L501.2450, L100.0100, L500.4050 ####[facility] [address] [place], [address] GFR/1.73 sq M.predicted among non-blacks MDRD (S/P/Bld) [Vol rate/Area] 67 mL/min/{1.73_m2} Normal >60 [facility] Comment on above: Order Comment: 'TROP ' Serial specimen #1, #2 or #3: 1 Result Comment: Non- GFR Calc Performed By: #### L 501.4020, L501.2450, L100.0100, L500.4050 ####[facility] [address] [place], [address] Globulin (S) [Mass/Vol] 3.6 g/dL Normal 2.2-4.2 [facility] Comment on above: Order Comment: 'TROP ' Serial specimen #1, #2 or #3: 1 Performed By: #### L 501.4020, L501.2450, L100.0100, L500.4050 ####[facility] [address] [place], [address] Glucose [Mass/Vol] 289 mg/dL High 74-[address] [facility] Comment on above: Order Comment: 'TROP ' Serial specimen #1, #2 or #3: 1 Result Comment: Gluc ose result greater than or equal to 200 mg/dLsuggests DIABETES MELLITUS per A.D.A. criteria. Performed By: #### L 501.4020, L501.2450, L100.0100, L500.4050 ####[facility] [address] [place], [address] Potassium [Moles/Vol] 4.2 mmol/L Normal 3.5-5.1 [facility] Comment on above: Order Comment: 'TROP ' Serial specimen #1, #2 or #3: 1 Performed By: #### L 501.4020, L501.2450, L100.0100, L500.4050 ####[facility] [address] [place], [address] Sodium [Moles/Vol] 136 mmol/L Normal 136-[address] [facility] Comment on above: Order Comment: 'TROP ' Serial specimen #1, #2 or #3: 1 Performed By: #### L 501.4020, L501.2450, L100.0100, L500.4050 ####[facility] [address] [place], [address] T PROT 6.9 g/dL Normal 6.4-8.2 [facility] Comment on above: Order Comment: 'TROP ' Serial specimen #1, #2 or #3: 1 Performed By: #### L 501.4020, L501.2450, L100.0100, L500.4050 ####[facility] [address] [place], [address] Urea nitrogen [Mass/Vol] 20 mg/dL High 7-18 [facility] Comment on above: Order Comment: 'TROP ' Serial specimen #1, #2 or #3: 1 Performed By: #### L 501.4020, L501.2450, L100.0100, L500.4050 ####[facility] [address] [place], [address] Emergency Department Summary on 05-25-2024 Emergency Department Summary Normal [facility] Eosinophil percentageOrdered By: Reyna Monzon on 05-25-2024 Eosinophils/100 WBC (Bld) 3.7 % 0-5 [facility] Erythrocyte distribution wid th ratioOrdered By: Reyna Monzon on 05-25-2024 Erythrocyte distribution width (RBC) [Ratio] 12.7 % 11.6-14.6 [facility] Erythrocyte distribution wid th standard deviationOrdered By: Reyna Monzon on 05-25-2024 Erythrocyte distribution width (RBC) [Entitic vol] 41.4 fL 35.1-43.9 [facility] Estimated glomerular filtrat ion rate (GFR) AmericanOrdered By: Reyna Monzon on 05-25-2024 Estimated GFR (MDRD) Amer 81 mL/min >60 [facility] Comment on above: GFR Calc Estimation of creatinine kimberly aranceOrdered By: Reyna Monzon on 05-25-2024 Estimated Creatinine Clearance Calc 81.14 ml/min [facility] Glomerular filtration rate ( GFR) estimationOrdered By: Reyna Monzon on 05-25-2024 Estimated GFR (MDRD) Non-Af Amer 67 mL/min >60 [facility] Comment on above: Non- GFR Calc Glucose measurementOrdered B y: Reyna Monzon on 05-25-2024 Glucose [Mass/Vol] 289 mg/dL High 74-[address] [facility] Comment on above: Glucose result great er than or equal to 200 mg/dLsuggests DIABETES MELLITUS per A.D.A. criteria. Hematocrit Auto (Bld) [Volum e fraction]Ordered By: Reyna Monzon on 05-25-2024 Hematocrit (Bld) [Volume fraction] 40.0 % 37-47 [facility] Hemoglobin measurementOrdere d By: Reyna Monzon on 05-25-2024 Hemoglobin (Bld) [Mass/Vol] 13.0 g/dL 12.0-15.0 [facility] Immature granulocytes/100 WB C Auto (Bld)Ordered By: Reyna Monzon on 05-25-2024 Immature granulocytes/100 WBC (Bld) 0.300 % 0.0-0.9 [facility] Comment on above: IG% - Immature Granu locytes (promyelocytes, myelocytes and metamyelocytes) > 1% indicates that a LEFT SHIFT is Present. L501.4020on 05-25-2024 TROPONIN-I HS 13 pg/mL Normal 3.0-54.0 [facility] Comment on above: Order Comment: 'TROP ' Serial specimen #1, #2 or #3: 1 Result Comment: Jeffrey qiuntana Note: New Test Units and Gender Specific Reference Ranges. For more information see Policy Stat Procedure [place] High Sensitivity Troponin (TNIH) and attachments. Performed By: #### L 501.4020, L501.2450, L100.0100, L500.4050 ####[facility] [address] [place], [address] Laboratory - Chemistry and C hemistry - challengeOrdered By: Reyna Monzon on 05-25-2024 AST [Catalytic activity/Vol] 15 U/L 15-37 [facility] Lipaseon 05-25-2024 Lipase [Catalytic activity/Vol] 15 U/L Normal 13-75 [facility] Comment on above: Order Comment: 'TROP ' Serial specimen #1, #2 or #3: 1 Result Comment: Jeffrey quintana note:LIPASE revised reference range effective 22.New Lipase methodology. Expected to produce lower valuesthan the previous assay method.NEW Reference Range: 13 - 75 U/L Performed By: #### L 501.4020, L501.2450, L100.0100, L500.4050 ####[facility] [address] [place], [address] Lipase measurementOrdered By : Reyna Monzon on 05-25-2024 Lipase [Catalytic activity/Vol] 15 U/L 13-75 [facility] Comment on above: Please note:LIPASE r evised reference range effective 22. New Lipase methodology. Expected to produce lower values than the previous assay method. NEW Reference Range: 13 - 75 U/L Lymphocytes Auto (Unsp spec) [#/Vol]Ordered By: Reyna Monzon on 05-25-2024 Lymphocytes (Bld) [#/Vol] 0.73 10*3/uL Low 0.83-4.51 [facility] Lymphocytes/100 WBC Auto (Un sp spec)Ordered By: Reyna Monzon on 05-25-2024 Lymphocytes/100 WBC (Bld) 10.3 % Low 19-41 [facility] MCV (mean corpuscular volume ) determinationOrdered By: Reyna Monzon on 05-25-2024 MCV (RBC) [Entitic vol] 89.3 fL 81-99 [facility] Mean corpuscular hemoglobin (MCH) determinationOrdered By: Reyna Monzon on 05-25-2024 MCH (RBC) [Entitic mass] 29.0 pg 27.0-32.0 [facility] Mean corpuscular hemoglobin concentration (MCHC) determinationOrdered By: Reyna Monzon on 05-25-2024 MCHC (RBC) [Mass/Vol] 32.5 g/dL 32-36 [facility] Mean platelet volume determi nationOrdered By: Reyna Monzon on 05-25-2024 Platelet mean volume (Bld) [Entitic vol] 12.7 fL High 6.2-12.0 [facility] Monocyte percentageOrdered B y: Reyna Monzon on 05-25-2024 Monocytes/100 WBC (Bld) 6.2 % 0-10 [facility] Neutrophil percentageOrdered By: Reyna Monzon on 05-25-2024 Neutrophils/100 WBC (Bld) 79.1 % High 47-70 [facility] Nucleated red blood cell per centageOrdered By: Reyna Monzon on 05-25-2024 Nucleated RBC/100 WBC (Bld) [Ratio] 0 % 0-5 [facility] Platelet countOrdered By: Elias Monzon on 05-25-2024 Platelets (Bld) [#/Vol] 173 10*3/uL 150-450 [facility] Potassium measurementOrdered By: Reyna Monzon on 05-25-2024 Potassium [Moles/Vol] 4.2 mmol/L 3.5-5.1 [facility] RBC Auto (Bld) [#/Vol]Ordere d By: Reyna Monzon on 05-25-2024 RBC (Bld) [#/Vol] 4.48 10*6/uL 4.2-5.4 [facility] Serum anion gap measurementO rdered By: Reyna Monzon on 05-25-2024 Anion gap [Moles/Vol] 8 mmol/L 5-15 [facility] Serum globulin measurementOr dered By: Reyna Monzon on 05-25-2024 Globulin (S) [Mass/Vol] 3.6 g/dL 2.2-4.2 [facility] Serum or plasma alanine ramírez otransferase (ALT) measurementOrdered By: Reyna Monzon on 05-25-2024 ALT [Catalytic activity/Vol] 20 U/L 13-56 [facility] Serum or plasma albumin zora urement (mass/volume)Ordered By: Reyna Monzon on 05-25-2024 Albumin [Mass/Vol] 3.3 g/dL 3.2-5.[address] [facility] Serum or plasma alkaline dhiraj sphatase measurementOrdered By: Reyna Monzon on 05-25-2024 ALP [Catalytic activity/Vol] 82 U/L 45-117 [facility] Serum or plasma calcium zora urement (mass/volume)Ordered By: Reyna Monzon on 05-25-2024 Calcium [Mass/Vol] 9.1 mg/dL 8.5-10.[address] [facility] Serum or plasma creatinine m easurement (mass/volume)Ordered By: Reyna Monzon on 05-25-2024 Creatinine [Mass/Vol] 0.87 mg/dL 0.55-1.02 [facility] Comment on above: The validity of the calculated GFR & GFRAA in patients over 70 years has not been determined. Clinical correlation is essential. Serum or plasma urea nitroge n measurement (mass/volume)Ordered By: Reyna Monzon on 05-25-2024 Urea nitrogen [Mass/Vol] 20 mg/dL High 7-18 [facility] [facility] Sodium levelOrdered By: Sammy Monzon on 05-25-2024 Sodium [Moles/Vol] 136 mmol/L 136-[address] [facility] Total proteinOrdered By: Sultana Monzon on 05-25-2024 Protein [Mass/Vol] 6.9 g/dL 6.4-8.[address] [facility] Troponin IOrdered By: Reyna Monzon on 05-25-2024 Troponin I High Sensitivity 13 pg/mL 3.0-54.0 [facility] Comment on above: Please Note: New Mariajose t Units and Gender Specific Reference Ranges. For more information see Policy Stat Procedure [place] High Sensitivity Troponin (TNIH) and attachments. White blood cell (WBC) count Ordered By: Reyna Monzon on 05-25-2024 WBC (Bld) [#/Vol] 7.1 10*3/uL 4.4-11.[address] [facility] CNOVon 05-23-2024 CNOV Normal [facility] HEMOGLOBIN A1C (POC)on 05-23 HbA1c (Bld) [Mass fraction] 6.9 % Abnormal 4.3 - 5.6 % [facility] Comment on above: Location:[facility], [address], [place], [address] Point of care (POC) Hemoglobin A1c (HGBA1C) [...] specific diabetes management situations: The POC device logistics center manager provides a normal range of 4.2% to 6.5% for the HGBA1C POC test. However, the [place] [employer] guidelines indicate that patients with [...] Interpretation and review of laboratory results Abnormal [facility] CNPTOUTREACHon 05-22-2024 CNPTOUTREACH Normal [facility] 12 Lead EKGon 05-18-2024 12 Lead EKG Normal [facility] BNP,B-Type NATRIURETIC PEPTI Vargas 05-18-2024 Natriuretic peptide B (Bld) [Mass/Vol] 96.5 pg/mL Normal 0-100 [facility] Comment on above: Performed By: #### L 501.5429, L100.0100, L503.6620, L500.2500, L501.9520 ####[facility] [address] [place], [place], [address] Basic Metabolic Profile (BMP )on 05-18-2024 BUN/CRE 19.3 RATIO Normal 10-20 [facility] Comment on above: Order Comment: 1Y Performed By: #### L 501.5425, L100.0100, L503.6620, L500.2500, L501.9520 ####[facility] [address] [place], [address] CA,Total 9.1 mg/dL Normal 8.5-10.1 [facility] Comment on above: Order Comment: 1Y Performed By: #### L 501.5425, L100.0100, L503.6620, L500.2500, L501.9520 ####[facility] [address] [place], [address] Chloride [Moles/Vol] 106 mmol/L Normal 98-107 [facility] Comment on above: Order Comment: 1Y Performed By: #### L 501.5425, L100.0100, L503.6620, L500.2500, L501.9520 ####[facility] [address] [place], [address] CO2 [Moles/Vol] 29.0 mmol/L Normal 21.0-32.0 [facility] Comment on above: Order Comment: 1Y Performed By: #### L 501.5425, L100.0100, L503.6620, L500.2500, L501.9520 ####[facility] [address] [place], [address] Creatinine [Mass/Vol] 1.09 mg/dL High 0.55-1.02 [facility] Comment on above: Order Comment: 1Y Result Comment: The validity of the calculated GFR GFRAA in patients over70 years has not been determined. Clinical correlation isessential. Performed By: #### L 501.5425, L100.0100, L503.6620, L500.2500, L501.9520 ####[facility] [address] [place], [address] ECRCL 53.02 ml/min Normal [facility] Comment on above: Order Comment: 1Y Performed By: #### L 501.5425, L100.0100, L503.6620, L500.2500, L501.9520 ####[facility] [address] [place], [address] EST GFR - AA 62 mL/min Normal >60 [facility] Comment on above: Order Comment: 1Y Result Comment: Afri can Norwegian GFR Calc Performed By: #### L 501.5425, L100.0100, L503.6620, L500.2500, L501.9520 ####[facility] [address] [place], [address] GAP 5 Normal 5-15 [facility] Comment on above: Order Comment: 1Y Performed By: #### L 501.5425, L100.0100, L503.6620, L500.2500, L501.9520 ####[facility] [address] [place], [address] GFR/1.73 sq M.predicted among non-blacks MDRD (S/P/Bld) [Vol rate/Area] 52 mL/min/{1.73_m2} Low >60 [facility] Comment on above: Order Comment: 1Y Result Comment: Non- GFR Calc Performed By: #### L 501.5425, L100.0100, L503.6620, L500.2500, L501.9520 ####[facility] [address] [place], [address] Glucose [Mass/Vol] 117 mg/dL High 74-[address] [facility] Comment on above: Order Comment: 1Y Result Comment: Fast ing Glucose result from 100 to 125 mg/dLsuggests IMPAIRED HOMEOSTASIS per A.D.A. criteria. Performed By: #### L 501.5425, L100.0100, L503.6620, L500.2500, L501.9520 ####[facility] [address] [place], [address] Potassium [Moles/Vol] 4.1 mmol/L Normal 3.5-5.1 [facility] Comment on above: Order Comment: 1Y Performed By: #### L 501.5425, L100.0100, L503.6620, L500.2500, L501.9520 ####[facility] [address] [place], [address] Sodium [Moles/Vol] 140 mmol/L Normal 136-[address] [facility] Comment on above: Order Comment: 1Y Performed By: #### L 501.5425, L100.0100, L503.6620, L500.2500, L501.9520 ####[facility] [address] [place], [address] Urea nitrogen [Mass/Vol] 21 mg/dL High 7-18 [facility] Comment on above: Order Comment: 1Y Performed By: #### L 501.5425, L100.0100, L503.6620, L500.2500, L501.9520 ####[facility] [address] [place], [address] Bedside Glucoseon 05-18-2024 FINGERSTICK GLU 139 mg/dL High 74-106 [facility] Comment on above: Result Comment: MERCEDES GEMENT OF PATIENT CARE PER NURSING PROTOCOL Performed By: #### L 501.080 ####[facility] [address] [place], [address] CBC W/Diff, Automatedon Absolute Lymph 1.02 X10 3/uL Normal 0.83-4.51 [facility] Comment on above: Performed By: #### L 501.5425, L100.0100, L503.6620, L500.2500, L501.9520 ####[facility] [address] [place], [address] Absolute Neut 4.6 X10 3/uL Normal 2.0-7.7 [facility] Comment on above: Performed By: #### L 501.5425, L100.0100, L503.6620, L500.2500, L501.9520 ####[facility] [address] [place], [address] Basophils/100 WBC (Bld) 0.5 % Normal 0-1 [facility] Comment on above: Performed By: #### L 501.5425, L100.0100, L503.6620, L500.2500, L501.9520 ####[facility] [address] [place], [address] Eosinophils/100 WBC (Bld) 5.0 % Normal 0-5 [facility] Comment on above: Performed By: #### L 501.5425, L100.0100, L503.6620, L500.2500, L501.9520 ####[facility] [address] [place], [address] Erythrocyte distribution width (RBC) [Ratio] 12.7 % Normal 11.6-14.6 [facility] Comment on above: Performed By: #### L 501.5425, L100.0100, L503.6620, L500.2500, L501.9520 ####[facility] [address] [place], [address] Hematocrit (Bld) [Volume fraction] 39.1 % Normal 37-47 [facility] Comment on above: Performed By: #### L 501.5425, L100.0100, L503.6620, L500.2500, L501.9520 ####[facility] [address] [place], [address] Hemoglobin (Bld) [Mass/Vol] 12.8 g/dL Normal 12.0-15.0 [facility] Comment on above: Performed By: #### L 501.5425, L100.0100, L503.6620, L500.2500, L501.9520 ####[facility] [address] [place], [address] IG% 0.200 Normal 0.0-0.9 [facility] Comment on above: Result Comment: IG% - Immature Granulocytes (promyelocytes, myelocytes andmetamyelocytes) > 1% indicates that a LEFT SHIFT is Present. Performed By: #### L 501.5425, L100.0100, L503.6620, L500.2500, L501.9520 ####[facility] [address] [place], [address] Lymphocytes/100 WBC (Bld) 15.8 % Low 19-41 [facility] Comment on above: Performed By: #### L 501.5425, L100.0100, L503.6620, L500.2500, L501.9520 ####[facility] [address] [place], [address] MCH (RBC) [Entitic mass] 29.2 pg Normal 27.0-32.0 [facility] Comment on above: Performed By: #### L 501.5425, L100.0100, L503.6620, L500.2500, L501.9520 ####[facility] [address] [place], [address] MCHC (RBC) [Mass/Vol] 32.7 g/dL Normal 32-36 [facility] Comment on above: Performed By: #### L 501.5425, L100.0100, L503.6620, L500.2500, L501.9520 ####[facility] [address] [place], [address] MCV (RBC) [Entitic vol] 89.1 fL Normal 81-99 [facility] Comment on above: Performed By: #### L 501.5425, L100.0100, L503.6620, L500.2500, L501.9520 ####[facility] [address] [place], [address] Monocytes/100 WBC (Bld) 8.2 % Normal 0-10 [facility] Comment on above: Performed By: #### L 501.5425, L100.0100, L503.6620, L500.2500, L501.9520 ####[facility] [address] [place], [address] Neutrophils/100 WBC (Bld) 70.3 % High 47-70 [facility] Comment on above: Performed By: #### L 501.5425, L100.0100, L503.6620, L500.2500, L501.9520 ####[facility] [address] [place], [address] Nucleated RBC (Bld) [#/Vol] 0 10*3/uL Normal 0-5 [facility] Comment on above: Performed By: #### L 501.5425, L100.0100, L503.6620, L500.2500, L501.9520 ####[facility] [address] [place], [address] Platelet mean volume (Bld) [Entitic vol] 12.6 fL High 6.2-12.0 [facility] Comment on above: Performed By: #### L 501.5425, L100.0100, L503.6620, L500.2500, L501.9520 ####[facility] [address] [place], [address] Platelets (Bld) [#/Vol] 194 10*3/uL Normal 150-450 [facility] Comment on above: Performed By: #### L 501.5425, L100.0100, L503.6620, L500.2500, L501.9520 ####[facility] [address] [place], [address] RBC (Bld) [#/Vol] 4.39 10*6/uL Normal 4.2-5.4 [facility] Comment on above: Performed By: #### L 501.5425, L100.0100, L503.6620, L500.2500, L501.9520 ####[facility] [address] [place], [address] RDW SD 41.8 fl Normal 35.1-43.9 [facility] Comment on above: Performed By: #### L 501.5425, L100.0100, L503.6620, L500.2500, L501.9520 ####[facility] [address] [place], [address] WBC (Bld) [#/Vol] 6.5 10*3/uL Normal 4.4-11.[address] [facility] Comment on above: Performed By: #### L 501.5425, L100.0100, L503.6620, L500.2500, L501.9520 ####[facility] [address] [place], [address] Chest 1 View (Portable)on Chest 1 View (Portable) Normal [facility] Emergency Department Summary on 05-18-2024 Emergency Department Summary Normal [facility] L501.4020on 05-18-2024 TROPONIN-I HS 9 pg/mL Normal 3.0-54.0 [facility] Comment on above: Result Comment: Plea se Note: New Test Units and Gender Specific Reference Ranges. For more information see Policy Stat Procedure [place] High Sensitivity Troponin (TNIH) and attachments. Performed By: #### L 501.4020 ####[facility] [address] [place], [address] L501.5425on 05-18-2024 TROPONIN-I HS 8 pg/mL Normal 3.0-54.0 [facility] Comment on above: Order Comment: 1Y Result Comment: Plea se Note: New Test Units and Gender Specific Reference Ranges. For more information see Policy Stat Procedure [place] High Sensitivity Troponin (TNIH) and attachments. Performed By: #### L 501.5425, L100.0100, L503.6620, L500.2500, L501.9520 ####[facility] [address] [place], [address] Thyroid Stim Hormone (TSH)on 05-18-2024 TSH 2.770 uIU/mL Normal 0.358-3.740 [facility] Comment on above: Order Comment: 1Y Performed By: #### L 501.5425, L100.0100, L503.6620, L500.2500, L501.9520 ####[facility] [address] [place], [address] CNPNon 05-10-2024 CNPN Normal [facility] CNOVon 05-07-2024 CNOV Normal [facility] 12 Lead EKGon 05-04-2024 12 Lead EKG Normal [facility] BNP,B-Type NATRIURETIC PEPTI Vargas 05-04-2024 Natriuretic peptide B (Bld) [Mass/Vol] 123.7 pg/mL High 0-100 [facility] Comment on above: Performed By: #### L 500.2500, L100.0100, L503.6620, L501.5425 ####[facility] [address] [place], [address] Basic Metabolic Profile (BMP )on 05-04-2024 BUN/CRE 24.4 RATIO High 10-20 [facility] Comment on above: Order Comment: 1Y Performed By: #### L 500.2500, L100.0100, L503.6620, L501.5425 ####[facility] [address] [place], [address] CA,Total 9.1 mg/dL Normal 8.5-10.1 [facility] Comment on above: Order Comment: 1Y Performed By: #### L 500.2500, L100.0100, L503.6620, L501.5425 ####[facility] [address] [place], [address] Chloride [Moles/Vol] 107 mmol/L Normal 98-107 [facility] Comment on above: Order Comment: 1Y Performed By: #### L 500.2500, L100.0100, L503.6620, L501.5425 ####[facility] [address] [place], [address] CO2 [Moles/Vol] 27.0 mmol/L Normal 21.0-32.0 [facility] Comment on above: Order Comment: 1Y Performed By: #### L 500.2500, L100.0100, L503.6620, L501.5425 ####[facility] [address] [place], [address] Creatinine [Mass/Vol] 0.94 mg/dL Normal 0.55-1.02 [facility] Comment on above: Order Comment: 1Y Result Comment: The validity of the calculated GFR GFRAA in patients over70 years has not been determined. Clinical correlation isessential. Performed By: #### L 500.2500, L100.0100, L503.6620, L501.5425 ####[facility] [address] [place], [address] EST GFR - AA 74 mL/min Normal >60 [facility] Comment on above: Order Comment: 1Y Result Comment: Afri can Norwegian GFR Calc Performed By: #### L 500.2500, L100.0100, L503.6620, L501.5425 ####[facility] [address] [place], [address] GAP 6 Normal 5-15 [facility] Comment on above: Order Comment: 1Y Performed By: #### L 500.2500, L100.0100, L503.6620, L501.5425 ####[facility] [address] [place], [address] GFR/1.73 sq M.predicted among non-blacks MDRD (S/P/Bld) [Vol rate/Area] 61 mL/min/{1.73_m2} Normal >60 [facility] Comment on above: Order Comment: 1Y Result Comment: Non- GFR Calc Performed By: #### L 500.2500, L100.0100, L503.6620, L501.5425 ####[facility] [address] [place], [address] Glucose [Mass/Vol] 160 mg/dL High 74-[address] [facility] Comment on above: Order Comment: 1Y Result Comment: Fast ing Glucose result greater than or equal to 126 mg/dLsuggests DIABETES MELLITUS per A.D.A. criteria. Performed By: #### L 500.2500, L100.0100, L503.6620, L501.5425 ####[facility] [address] [place], [address] Potassium [Moles/Vol] 4.0 mmol/L Normal 3.5-5.1 [facility] Comment on above: Order Comment: 1Y Performed By: #### L 500.2500, L100.0100, L503.6620, L501.5425 ####[facility] [address] [place], [address] Sodium [Moles/Vol] 140 mmol/L Normal 136-[address] [facility] Comment on above: Order Comment: 1Y Performed By: #### L 500.2500, L100.0100, L503.6620, L501.5425 ####[facility] [address] [place], [address] Urea nitrogen [Mass/Vol] 23 mg/dL High 7-18 [facility] Comment on above: Order Comment: 1Y Performed By: #### L 500.2500, L100.0100, L503.6620, L501.5425 ####[facility] [address] [place], [address] CBC W/Diff, Automatedon 04-17 Absolute Lymph 1.25 X10 3/uL Normal 0.83-4.51 [facility] Comment on above: Performed By: #### L 500.2500, L100.0100, L503.6620, L501.5425 ####[facility] [address] [place], [address] Absolute Neut 4.8 X10 3/uL Normal 2.0-7.7 [facility] Comment on above: Performed By: #### L 500.2500, L100.0100, L503.6620, L501.5425 ####[facility] [address] [place], [address] Basophils/100 WBC (Bld) 0.6 % Normal 0-1 [facility] Comment on above: Performed By: #### L 500.2500, L100.0100, L503.6620, L501.5425 ####[facility] [address] [place], [address] Eosinophils/100 WBC (Bld) 4.9 % Normal 0-5 [facility] Comment on above: Performed By: #### L 500.2500, L100.0100, L503.6620, L501.5425 ####[facility] [address] [place], [address] Erythrocyte distribution width (RBC) [Ratio] 12.7 % Normal 11.6-14.6 [facility] Comment on above: Performed By: #### L 500.2500, L100.0100, L503.6620, L501.5425 ####[facility] [address] [place], [address] Hematocrit (Bld) [Volume fraction] 38.7 % Normal 37-47 [facility] Comment on above: Performed By: #### L 500.2500, L100.0100, L503.6620, L501.5425 ####[facility] [address] [place], [address] Hemoglobin (Bld) [Mass/Vol] 12.9 g/dL Normal 12.0-15.0 [facility] Comment on above: Performed By: #### L 500.2500, L100.0100, L503.6620, L501.5425 ####[facility] [address] [place], [address] IG% 0.100 Normal 0.0-0.9 [facility] Comment on above: Result Comment: IG% - Immature Granulocytes (promyelocytes, myelocytes andmetamyelocytes) > 1% indicates that a LEFT SHIFT is Present. Performed By: #### L 500.2500, L100.0100, L503.6620, L501.5425 ####[facility] [address] [place], [address] Lymphocytes/100 WBC (Bld) 18.1 % Low 19-41 [facility] Comment on above: Performed By: #### L 500.2500, L100.0100, L503.6620, L501.5425 ####[facility] [address] [place], [address] MCH (RBC) [Entitic mass] 29.4 pg Normal 27.0-32.0 [facility] Comment on above: Performed By: #### L 500.2500, L100.0100, L503.6620, L501.5425 ####[facility] [address] [place], [address] MCHC (RBC) [Mass/Vol] 33.3 g/dL Normal 32-36 [facility] Comment on above: Performed By: #### L 500.2500, L100.0100, L503.6620, L501.5425 ####[facility] [address] [place], [address] MCV (RBC) [Entitic vol] 88.2 fL Normal 81-99 [facility] Comment on above: Performed By: #### L 500.2500, L100.0100, L503.6620, L501.5425 ####[facility] [address] [place], [address] Monocytes/100 WBC (Bld) 7.3 % Normal 0-10 [facility] Comment on above: Performed By: #### L 500.2500, L100.0100, L503.6620, L501.5425 ####[facility] [address] [place], [address] Neutrophils/100 WBC (Bld) 69.0 % Normal 47-70 [facility] Comment on above: Performed By: #### L 500.2500, L100.0100, L503.6620, L501.5425 ####[facility] [address] [place], [address] Nucleated RBC (Bld) [#/Vol] 0 10*3/uL Normal 0-5 [facility] Comment on above: Performed By: #### L 500.2500, L100.0100, L503.6620, L501.5425 ####[facility] [address] [place], [address] Platelet mean volume (Bld) [Entitic vol] 12.1 fL High 6.2-12.0 [facility] Comment on above: Performed By: #### L 500.2500, L100.0100, L503.6620, L501.5425 ####[facility] [address] [place], [address] Platelets (Bld) [#/Vol] 198 10*3/uL Normal 150-450 [facility] Comment on above: Performed By: #### L 500.2500, L100.0100, L503.6620, L501.5425 ####[facility] [address] [place], [address] RBC (Bld) [#/Vol] 4.39 10*6/uL Normal 4.2-5.4 [facility] Comment on above: Performed By: #### L 500.2500, L100.0100, L503.6620, L501.5425 ####[facility] [address] [place], [address] RDW SD 41.0 fl Normal 35.1-43.9 [facility] Comment on above: Performed By: #### L 500.2500, L100.0100, L503.6620, L501.5425 ####[facility] [address] [place], [address] WBC (Bld) [#/Vol] 6.9 10*3/uL Normal 4.4-11.[address] [facility] Comment on above: Performed By: #### L 500.2500, L100.0100, L503.6620, L501.5425 ####[facility] [address] [place], [address] Chest 1 View (Portable)on Chest 1 View (Portable) Normal [facility] Emergency Department Summary on 05-04-2024 Emergency Department Summary Normal [facility] L501.5425on 05-04-2024 TROPONIN-I HS 10 pg/mL Normal 3.0-54.0 [facility] Comment on above: Order Comment: 1Y Result Comment: Jeffrey quintana Note: New Test Units and Gender Specific Reference Ranges. For more information see Policy Stat Procedure [place] High Sensitivity Troponin (TNIH) and attachments. Performed By: #### L 500.2500, L100.0100, L503.6620, L501.5425 ####[facility] [address] [place], [address] CNPTOUTREACHon 04-19-2024 CNPTOUTREACH Normal [facility] CNOVon 04-18-2024 CNOV Normal [facility] COVID AND INFLUENZA A/B AND RSV PCR, ROUTINEon 04-18-2024 SARS-CoV-2 (COVID-19) RNA RAYMOND+probe Ql (Unsp spec) SARS-COV-2 (AGENT OF COVID-19) RNA: Not detected INFLUENZA A RNA: Not detected INFLUENZA B RNA: Not detected RESPIRATORY SYNCYTIAL VIRUS (RSV) RNA: Not detected Normal [facility] Comment on above: Performed By: #### C VFLRS ####[facility] [id number] [facility] [id number] [place] [id number] [place] XR CHEST 2V FRONTAL/LATon XR CHEST 2V FRONTAL/LAT Normal C [facility] XR Chest PA and Lateralon IMPRESSION: No acute radiographic abnormality. Senior Health Physics Technician: EVIE Transcribe Date/Time: Apr 18 2024 10:00A Dictated by : STEVEN JOHNSON MD This examination was interpreted and the report reviewed and electronically signed by: STEVEN JOHNSON MD on Apr 18 2024 10:01AM [facility] DIVISION OF RADIOLOGY * * *Final Report* [...] spine. IMPRESSION IMPRESSION: No acute radiographic abnormality. Senior Health Physics Technician: EVIE Transcribe Date/Time: Apr 18 2024 10:00A Dictated by : STEVEN JOHNSON MD This examination was interpreted and the report reviewed and electronically signed by: STEVEN JOHNSON MD on Apr 18 2024 10:01AM EST [facility] Radiology Study observation (narrative) [facility] Chest PA and LateralOrder ed By: Ccf Provider on 04-18-2024 [facility] CNCNPATEDon 04-09-2024 CNCNPATED Normal [facility] CNPTOUTREACHon 04-04-2024 CNPTOUTREACH Normal [facility] CNOVon 03-30-2024 CNOV Normal [facility] NITRIC OXIDE, EXHALEDon 03-18 Zora Cortes RPF [...] (A) 02/23/2019 24.0 04/18/2017 56.0 (A) NAME: Zora MuniraJAI posada PATIENT NAME: Attila Kidd DATE: March 30, 2024 TIME: 1:40 PM [facility] SCRN MAMM (CAD)W/MINAL BILATo n 03-23-2024 SCRN MAMM (CAD)W/MINAL BILAT Normal [facility] CNPNon 03-22-2024 CNPN Normal [facility] CNPNon 03-15-2024 CNPN Normal [facility] CNPTOUTREACHon 03-14-2024 CNPTOUTREACH Normal [facility] CNPNon 03-12-2024 CNPN Normal [facility] CNOVon 03-07-2024 CNOV Normal [facility] CNPNon 03-07-2024 CNPN Normal [facility] CNPNon 03-06-2024 CNPN Normal [facility] CNPNon 03-05-2024 CNPN Normal [facility] 12 Lead EKGon 03-02-2024 12 Lead EKG Normal [facility] Basic Metabolic Profile (BMP )on 03-02-2024 BUN/CRE 23.3 RATIO High - [facility] Comment on above: Order Comment: 'TROP ' Serial specimen #1, #2 or #3: 1 Performed By: #### L 100.0100, L500.2500, L501.4020 ####[facility] [address] [place], [address] CA,Total 9.0 mg/dL Normal 8.5-10.1 [facility] Comment on above: Order Comment: 'TROP ' Serial specimen #1, #2 or #3: 1 Performed By: #### L 100.0100, L500.2500, L501.4020 ####[facility] [address] [place], [address] Chloride [Moles/Vol] 104 mmol/L Normal 98-107 [facility] Comment on above: Order Comment: 'TROP ' Serial specimen #1, #2 or #3: 1 Performed By: #### L 100.0100, L500.2500, L501.4020 ####[facility] [address] [place], [address] CO2 [Moles/Vol] 30.0 mmol/L Normal 21.0-32.0 [facility] Comment on above: Order Comment: 'TROP ' Serial specimen #1, #2 or #3: 1 Performed By: #### L 100.0100, L500.2500, L501.4020 ####[facility] [address] [place], [address] Creatinine [Mass/Vol] 0.99 mg/dL Normal 0.55-1.02 [facility] Comment on above: Order Comment: 'TROP ' Serial specimen #1, #2 or #3: 1 Result Comment: The validity of the calculated GFR GFRAA in patients over70 years has not been determined. Clinical correlation isessential. Performed By: #### L 100.0100, L500.2500, L501.4020 ####[facility] [address] [place], [address] EST GFR - AA 70 mL/min Normal >60 [facility] Comment on above: Order Comment: 'TROP ' Serial specimen #1, #2 or #3: 1 Result Comment: Afri can Norwegian GFR Calc Performed By: #### L 100.0100, L500.2500, L501.4020 ####[facility] [address] [place], [address] GAP 5 Normal 5-15 [facility] Comment on above: Order Comment: 'TROP ' Serial specimen #1, #2 or #3: 1 Performed By: #### L 100.0100, L500.2500, L501.4020 ####[facility] [address] [place], [address] GFR/1.73 sq M.predicted among non-blacks MDRD (S/P/Bld) [Vol rate/Area] 58 mL/min/{1.73_m2} Low >60 [facility] Comment on above: Order Comment: 'TROP ' Serial specimen #1, #2 or #3: 1 Result Comment: Non- GFR Calc Performed By: #### L 100.0100, L500.2500, L501.4020 ####[facility] [address] [place], [address] Glucose [Mass/Vol] 187 mg/dL High 74-[address] [facility] Comment on above: Order Comment: 'TROP ' Serial specimen #1, #2 or #3: 1 Result Comment: Fast ing Glucose result greater than or equal to 126 mg/dLsuggests DIABETES MELLITUS per A.D.A. criteria. Performed By: #### L 100.0100, L500.2500, L501.4020 ####[facility] [address] [place], [address] Potassium [Moles/Vol] 3.9 mmol/L Normal 3.5-5.1 [facility] Comment on above: Order Comment: 'TROP ' Serial specimen #1, #2 or #3: 1 Performed By: #### L 100.0100, L500.2500, L501.4020 ####[facility] [address] [place], [address] Sodium [Moles/Vol] 139 mmol/L Normal 136-[address] [facility] Comment on above: Order Comment: 'TROP ' Serial specimen #1, #2 or #3: 1 Performed By: #### L 100.0100, L500.2500, L501.4020 ####[facility] [address] [place], [address] Urea nitrogen [Mass/Vol] 23 mg/dL High 7-18 [facility] Comment on above: Order Comment: 'TROP ' Serial specimen #1, #2 or #3: 1 Performed By: #### L 100.0100, L500.2500, L501.4020 ####[facility] [address] [place], [address] Bedside Glucoseon 03-02-2024 FINGERSTICK GLU 219 mg/dL High 74-106 [facility] Comment on above: Result Comment: MERCEDES GEMENT OF PATIENT CARE PER NURSING PROTOCOL Performed By: #### L 501.080 ####[facility] [address] [place], [address] FINGERSTICK GLU 186 mg/dL High 74-106 [facility] Comment on above: Result Comment: MERCEDES GEMENT OF PATIENT CARE PER NURSING PROTOCOL Performed By: #### L 501.080 ####[facility] [address] [place], [address] CBC W/Diff, Automatedon 02-15 Absolute Lymph 0.94 X10 3/uL Normal 0.83-4.51 [facility] Comment on above: Performed By: #### L 100.0100, L500.2500, L501.4020 ####[facility] [address] [place], [address] Absolute Neut 3.4 X10 3/uL Normal 2.0-7.7 [facility] Comment on above: Performed By: #### L 100.0100, L500.2500, L501.4020 ####[facility] [address] [place], [address] Basophils/100 WBC (Bld) 0.6 % Normal 0-1 [facility] Comment on above: Performed By: #### L 100.0100, L500.2500, L501.4020 ####[facility] [address] [place], [address] Eosinophils/100 WBC (Bld) 6.9 % High 0-5 [facility] Comment on above: Performed By: #### L 100.0100, L500.2500, L501.4020 ####[facility] [address] [place], [address] Erythrocyte distribution width (RBC) [Ratio] 12.3 % Normal 11.6-14.6 [facility] Comment on above: Performed By: #### L 100.0100, L500.2500, L501.4020 ####[facility] [address] [place], [address] Hematocrit (Bld) [Volume fraction] 38.2 % Normal 37-47 [facility] Comment on above: Performed By: #### L 100.0100, L500.2500, L501.4020 ####[facility] [address] [place], [address] Hemoglobin (Bld) [Mass/Vol] 12.5 g/dL Normal 12.0-15.0 [facility] Comment on above: Performed By: #### L 100.0100, L500.2500, L501.4020 ####[facility] [address] [place], [address] IG% 0.200 Normal 0.0-0.9 [facility] Comment on above: Result Comment: IG% - Immature Granulocytes (promyelocytes, myelocytes andmetamyelocytes) > 1% indicates that a LEFT SHIFT is Present. Performed By: #### L 100.0100, L500.2500, L501.4020 ####[facility] [address] [place], [address] Lymphocytes/100 WBC (Bld) 18.0 % Low 19-41 [facility] Comment on above: Performed By: #### L 100.0100, L500.2500, L501.4020 ####[facility] [address] [place], [address] MCH (RBC) [Entitic mass] 29.4 pg Normal 27.0-32.0 [facility] Comment on above: Performed By: #### L 100.0100, L500.2500, L501.4020 ####[facility] [address] [place], [address] MCHC (RBC) [Mass/Vol] 32.7 g/dL Normal 32-36 [facility] Comment on above: Performed By: #### L 100.0100, L500.2500, L501.4020 ####[facility] [address] [place], [address] MCV (RBC) [Entitic vol] 89.9 fL Normal 81-99 [facility] Comment on above: Performed By: #### L 100.0100, L500.2500, L501.4020 ####[facility] [address] [place], [address] Monocytes/100 WBC (Bld) 9.8 % Normal 0-10 [facility] Comment on above: Performed By: #### L 100.0100, L500.2500, L501.4020 ####[facility] [address] [place], [address] Neutrophils/100 WBC (Bld) 64.5 % Normal 47-70 [facility] Comment on above: Performed By: #### L 100.0100, L500.2500, L501.4020 ####[facility] [address] [place], [address] Nucleated RBC (Bld) [#/Vol] 0 10*3/uL Normal 0-5 [facility] Comment on above: Performed By: #### L 100.0100, L500.2500, L501.4020 ####[facility] [address] [place], [address] Platelet mean volume (Bld) [Entitic vol] 12.2 fL High 6.2-12.0 [facility] Comment on above: Performed By: #### L 100.0100, L500.2500, L501.4020 ####[facility] [address] [place], [address] Platelets (Bld) [#/Vol] 207 10*3/uL Normal 150-450 [facility] Comment on above: Performed By: #### L 100.0100, L500.2500, L501.4020 ####[facility] [address] [place], [address] RBC (Bld) [#/Vol] 4.25 10*6/uL Normal 4.2-5.4 [facility] Comment on above: Performed By: #### L 100.0100, L500.2500, L501.4020 ####[facility] [address] [place], [address] RDW SD 40.2 fl Normal 35.1-43.9 [facility] Comment on above: Performed By: #### L 100.0100, L500.2500, L501.4020 ####[facility] [address] [place], [address] WBC (Bld) [#/Vol] 5.2 10*3/uL Normal 4.4-11.[address] [facility] Comment on above: Performed By: #### L 100.0100, L500.2500, L501.4020 ####[facility] [address] [place], [address] Chest 1 View (Portable)on Chest 1 View (Portable) Normal [facility] Emergency Department Summary on 03-02-2024 Emergency Department Summary Normal [facility] L501.4020on 03-02-2024 TROPONIN-I HS 10 pg/mL Normal 3.0-54.0 [facility] Comment on above: Order Comment: 'TROP ' Serial specimen #1, #2 or #3: 1 Result Comment: Jeffrey quintana Note: New Test Units and Gender Specific Reference Ranges. For more information see Policy Stat Procedure [place] High Sensitivity Troponin (TNIH) and attachments. Performed By: #### L 100.0100, L500.2500, L501.4020 ####[facility] [address] [place], [address] CNPNon 02-20-2024 CNPN Normal [facility] CNOVon 02-15-2024 CNOV Normal [facility] CNOVon 02-13-2024 CNOV Normal [facility] Bedside Glucoseon 02-07-2024 FINGERSTICK GLU 181 mg/dL High 74-106 [facility] Comment on above: Result Comment: MERCEDES SUBRAMANIAN OF PATIENT CARE PER NURSING PROTOCOL Performed By: #### L 501.080 ####[facility] [address] [place], [address] 12 Lead EKGon 02-06-2024 12 Lead EKG Normal [facility] Basic Metabolic Profile (BMP )on 02-06-2024 BUN/CRE 26.5 RATIO High 10-20 [facility] Comment on above: Performed By: #### L 500.2500, L100.0100 ####[facility] [address] [place], [address] CA,Total 9.1 mg/dL Normal 8.5-10.1 [facility] Comment on above: Performed By: #### L 500.2500, L100.0100 ####[facility] [address] [place], [address] Chloride [Moles/Vol] 103 mmol/L Normal 98-107 [facility] Comment on above: Performed By: #### L 500.2500, L100.0100 ####[facility] [address] [place], [address] CO2 [Moles/Vol] 27.0 mmol/L Normal 21.0-32.0 [facility] Comment on above: Performed By: #### L 500.2500, L100.0100 ####[facility] [address] [place], [address] Creatinine [Mass/Vol] 0.79 mg/dL Normal 0.55-1.02 [facility] Comment on above: Result Comment: The validity of the calculated GFR GFRAA in patients over70 years has not been determined. Clinical correlation isessential. Performed By: #### L 500.2500, L100.0100 ####[facility] [address] [place], [address] ECRCL 89.96 ml/min Normal [facility] Comment on above: Performed By: #### L 500.2500, L100.0100 ####[facility] [address] [place], [address] EST GFR - AA 90 mL/min Normal >60 [facility] Comment on above: Result Comment: Afri can Norwegian GFR Calc Performed By: #### L 500.2500, L100.0100 ####[facility] [address] [place], [address] GAP 7 Normal 5-15 [facility] Comment on above: Performed By: #### L 500.2500, L100.0100 ####[facility] [address] [place], [address] GFR/1.73 sq M.predicted among non-blacks MDRD (S/P/Bld) [Vol rate/Area] 75 mL/min/{1.73_m2} Normal >60 [facility] Comment on above: Result Comment: Non- GFR Calc Performed By: #### L 500.2500, L100.0100 ####[facility] [address] [place], [address] Glucose [Mass/Vol] 219 mg/dL High 74-[address] [facility] Comment on above: Result Comment: Gluc ose result greater than or equal to 200 mg/dLsuggests DIABETES MELLITUS per A.D.A. criteria. Performed By: #### L 500.2500, L100.0100 ####[facility] [address] [place], [address] Potassium [Moles/Vol] 3.9 mmol/L Normal 3.5-5.1 [facility] Comment on above: Performed By: #### L 500.2500, L100.0100 ####[facility] [address] [place], [address] Sodium [Moles/Vol] 137 mmol/L Normal 136-[address] [facility] Comment on above: Performed By: #### L 500.2500, L100.0100 ####[facility] [address] [place], [address] Urea nitrogen [Mass/Vol] 21 mg/dL High 7-18 [facility] Comment on above: Performed By: #### L 500.2500, L100.0100 ####[facility] [address] [place], [address] CBC W/Diff, Automatedon 07-2 Absolute Lymph 0.90 X10 3/uL Normal 0.83-4.51 [facility] Comment on above: Performed By: #### L 500.2500, L100.0100 ####[facility] [address] [place], [address] Absolute Neut 4.8 X10 3/uL Normal 2.0-7.7 [facility] Comment on above: Performed By: #### L 500.2500, L100.0100 ####[facility] [address] [place], [address] Basophils/100 WBC (Bld) 0.5 % Normal 0-1 [facility] Comment on above: Performed By: #### L 500.2500, L100.0100 ####[facility] [address] [place], [address] Eosinophils/100 WBC (Bld) 4.0 % Normal 0-5 [facility] Comment on above: Performed By: #### L 500.2500, L100.0100 ####[facility] [address] [place], [address] Erythrocyte distribution width (RBC) [Ratio] 12.1 % Normal 11.6-14.6 [facility] Comment on above: Performed By: #### L 500.2500, L100.0100 ####[facility] [address] [place], [address] Hematocrit (Bld) [Volume fraction] 38.8 % Normal 37-47 [facility] Comment on above: Performed By: #### L 500.2500, L100.0100 ####[facility] [address] [place], [address] Hemoglobin (Bld) [Mass/Vol] 12.7 g/dL Normal 12.0-15.0 [facility] Comment on above: Performed By: #### L 500.2500, L100.0100 ####[facility] [address] [place], [address] IG% 0.200 Normal 0.0-0.9 [facility] Comment on above: Result Comment: IG% - Immature Granulocytes (promyelocytes, myelocytes andmetamyelocytes) > 1% indicates that a LEFT SHIFT is Present. Performed By: #### L 500.2500, L100.0100 ####[facility] [address] [place], [address] Lymphocytes/100 WBC (Bld) 13.7 % Low 19-41 [facility] Comment on above: Performed By: #### L 500.2500, L100.0100 ####[facility] [address] [place], [address] MCH (RBC) [Entitic mass] 29.2 pg Normal 27.0-32.0 [facility] Comment on above: Performed By: #### L 500.2500, L100.0100 ####[facility] [address] [place], [address] MCHC (RBC) [Mass/Vol] 32.7 g/dL Normal 32-36 [facility] Comment on above: Performed By: #### L 500.2500, L100.0100 ####[facility] [address] [place], [address] MCV (RBC) [Entitic vol] 89.2 fL Normal 81-99 [facility] Comment on above: Performed By: #### L 500.2500, L100.0100 ####[facility] [address] [place], [address] Monocytes/100 WBC (Bld) 8.2 % Normal 0-10 [facility] Comment on above: Performed By: #### L 500.2500, L100.0100 ####[facility] [address] [place], [address] Neutrophils/100 WBC (Bld) 73.4 % High 47-70 [facility] Comment on above: Performed By: #### L 500.2500, L100.0100 ####[facility] [address] [place], [address] Nucleated RBC (Bld) [#/Vol] 0 10*3/uL Normal 0-5 [facility] Comment on above: Performed By: #### L 500.2500, L100.0100 ####[facility] [address] [place], [address] Platelet mean volume (Bld) [Entitic vol] 12.4 fL High 6.2-12.0 [facility] Comment on above: Performed By: #### L 500.2500, L100.0100 ####[facility] [address] [place], [address] Platelets (Bld) [#/Vol] 189 10*3/uL Normal 150-450 [facility] Comment on above: Performed By: #### L 500.2500, L100.0100 ####[facility] [address] [place], [address] RBC (Bld) [#/Vol] 4.35 10*6/uL Normal 4.2-5.4 [facility] Comment on above: Performed By: #### L 500.2500, L100.0100 ####[facility] [address] [place], [address] RDW SD 39.5 fl Normal 35.1-43.9 [facility] Comment on above: Performed By: #### L 500.2500, L100.0100 ####[facility] [address] [place], [address] WBC (Bld) [#/Vol] 6.6 10*3/uL Normal 4.4-11.[address] [facility] Comment on above: Performed By: #### L 500.2500, L100.0100 ####[facility] [address] [place], [address] Emergency Department Summary on 02-06-2024 Emergency Department Summary Normal [facility] 25(OH)D3 [facility] 2023 25-hydroxyvitamin D3 [Mass/Vol] 71.5 ng/mL Normal 31.0-80.0 [facility] Comment on above: Order Comment: Speci men Type: BLOOD SPECIMENOrdering Facility: [facility] Address: [facility] [address] Result Comment: Clas sification of 25 [place] Vitamin D status:Deficiency/Insufficiency: < or = 30 ng/ml.Sufficiency/Optimal Levels: 31-80 ng/mLToxicity: > 100 ng/mL.Test performed by chemiluminescent immunoassay. Performed By: #### 1 989-3 ####[facility] [id number] [address] [address] [place] CBC W Auto Differential pane l (Bld)on 01-27-2024 Basophils (Bld) [#/Vol] 10*3/uL Normal <0.11 [facility] Comment on above: Order Comment: Speci men Type: BLOOD SPECIMENOrdering Facility: [facility] Address: [address] [place] [address] Performed By: #### 5 7021-8 ####[facility] [id number] [place] [address] [place] Basophils/100 WBC (Bld) 0.4 % Normal [facility] Comment on above: Order Comment: Speci men Type: BLOOD SPECIMENOrdering Facility: [facility] Address: [address] [place] [address] Performed By: #### 5 7021-8 ####[facility] [id number] [place] [address] [place] Differential cell count method Nom (Bld) Auto Normal [facility] Comment on above: Order Comment: Speci men Type: BLOOD SPECIMENOrdering Facility: [facility] Address: [address] [place] [address] Performed By: #### 5 7021-8 ####[facility] [id number] [place] [address] [place] Eosinophils (Bld) [#/Vol] 0.26 10*3/uL Normal <0.46 [facility] Comment on above: Order Comment: Speci men Type: BLOOD SPECIMENOrdering Facility: [facility] Address: [address] [place] [address] Performed By: #### 5 7021-8 ####[facility] MILLWNCLIA [id number] [place] [address] [place] Eosinophils/100 WBC (Bld) 4.9 % Normal [facility] Comment on above: Order Comment: Speci men Type: BLOOD SPECIMENOrdering Facility: [facility] Address: [address] [place] [address] Performed By: #### 5 7021-8 ####[facility]ITAL[facility]IC[facility]OL[facility] [id number] [place] [address] [place] Erythrocyte distribution width (RBC) [Ratio] 12.6 % Normal 11.5-15.0 [facility] Comment on above: Order Comment: Speci men Type: BLOOD SPECIMENOrdering Facility: [facility] Address: [address] [place] [address] Performed By: #### 5 7021-8 ####[facility] [id number] [place] [address] [place] Hematocrit (Bld) [Volume fraction] 38.3 % Normal 36.0-46.0 [facility] Comment on above: Order Comment: Speci men Type: BLOOD SPECIMENOrdering Facility: [facility] Address: [address] [place] [address] Performed By: #### 5 7021-8 ####[facility] [id number] [place] [address] [place] Hemoglobin (Bld) [Mass/Vol] 12.7 g/dL Normal 11.5-15.5 [facility] Comment on above: Order Comment: Speci men Type: BLOOD SPECIMENOrdering Facility: [facility] Address: [address] [place] [address] Performed By: #### 5 7021-8 ####[facility]ITAL[facility]ICARDOL[facility] [id number] [place] [address] [place] Immature granulocytes (Bld) [#/Vol] 10*3/uL Normal <0.10 [facility] Comment on above: Order Comment: Speci men Type: BLOOD SPECIMENOrdering Facility: [facility] Address: [address] [place] [address] Performed By: #### 5 7021-8 ####[facility] [id number] [place] [address] [place] Immature granulocytes/100 WBC (Bld) 0.2 % Normal [facility] Comment on above: Order Comment: Speci men Type: BLOOD SPECIMENOrdering Facility: [facility] Address: [address] [place] [address] Performed By: #### 5 7021-8 ####[facility] [id number] [place] [address] [place] Lymphocytes (Bld) [#/Vol] 0.81 10*3/uL Low 1.00-4.00 [facility] Comment on above: Order Comment: Speci men Type: BLOOD SPECIMENOrdering Facility: [facility] Address: [address] [place] [address] Performed By: #### 5 7021-8 ####[facility] [id number] [place] [address] [place] Lymphocytes/100 WBC (Bld) 15.3 % Normal [facility] Comment on above: Order Comment: Speci men Type: BLOOD SPECIMENOrdering Facility: [facility] Address: [address] [place] [address] Performed By: #### 5 7021-8 ####[facility] [id number] [place] [address] [place] MCH (RBC) [Entitic mass] 29.6 pg Normal 26.0-34.0 [facility] Comment on above: Order Comment: Speci men Type: BLOOD SPECIMENOrdering Facility: [facility] Address: [address] [place] [address] Performed By: #### 5 7021-8 ####[facility] IRENE [id number] [place] [address] [place] MCHC (RBC) [Mass/Vol] 33.2 g/dL Normal 30.5-36.0 [facility] Comment on above: Order Comment: Speci men Type: BLOOD SPECIMENOrdering Facility: [facility] Address: [address] [place] [address] Performed By: #### 5 7021-8 ####[facility] MATTHEWPORTAGEJOSÉ LUIS [id number] [place] [address] [place] MCV (RBC) [Entitic vol] 89.3 fL Normal 80.0-100.0 [facility] Comment on above: Order Comment: Speci men Type: BLOOD SPECIMENOrdering Facility: [facility] Address: [address] [place] [address] Performed By: #### 5 7021-8 ####[facility] HOSPITALJOSÉ LUIS [id number] [place] [address] [place] Monocytes (Bld) [#/Vol] 0.40 10*3/uL Normal <0.87 [facility] Comment on above: Order Comment: Speci men Type: BLOOD SPECIMENOrdering Facility: [facility] Address: [address] [place] [address] Performed By: #### 5 7021-8 ####[facility] HOSPITALRICARDOA [id number] [place] [address] [place] Monocytes/100 WBC (Bld) 7.6 % Normal C [facility] Comment on above: Order Comment: Speci men Type: BLOOD SPECIMENOrdering Facility: [facility] Address: [address] [place] [address] Performed By: #### 5 7021-8 ####[facility] MILLTOWNCLIA [id number] [place] [address] [place] Neutrophils (Bld) [#/Vol] 3.79 10*3/uL Normal 1.45-7.50 [facility] Comment on above: Order Comment: Speci men Type: BLOOD SPECIMENOrdering Facility: [facility] Address: [address] [place] [address] Performed By: #### 5 7021-8 ####[facility] HOSPITALLIA [id number] [place] [address] [place] Neutrophils/100 WBC (Bld) 71.6 % Normal [facility] Comment on above: Order Comment: Speci men Type: BLOOD SPECIMENOrdering Facility: [facility] Address: [address] [place] [address] Performed By: #### 5 7021-8 ####[facility] HOSPITALLIA [id number] [place] [address] [place] Nucleated RBC (Bld) [#/Vol] 10*3/uL Normal <0.01 [facility] Comment on above: Order Comment: Speci men Type: BLOOD SPECIMENOrdering Facility: [facility] Address: [address] [place] [address] Performed By: #### 5 7021-8 ####[facility] HOSPITALLIA [id number] [place] [address] [place] Nucleated RBC/100 WBC (Bld) [Ratio] 0.0 /100 WBC Normal [facility] Comment on above: Order Comment: Speci men Type: BLOOD SPECIMENOrdering Facility: [facility] Address: [address] [place] [address] Performed By: #### 5 7021-8 ####[facility] HOSPITALNCLIA [id number] [place] [address] [place] Platelet mean volume (Bld) [Entitic vol] 12.5 fL Normal 9.0-12.7 [facility] Comment on above: Order Comment: Speci men Type: BLOOD SPECIMENOrdering Facility: [facility] Address: [address] [place] [address] Performed By: #### 5 7021-8 ####[facility] MATTHEWKseniaNCDANIELA [id number] [place] [address] [place] Platelets (Bld) [#/Vol] 195 10*3/uL Normal 150-400 [facility] Comment on above: Order Comment: Speci men Type: BLOOD SPECIMENOrdering Facility: [facility] Address: [address] [place] [address] Performed By: #### 5 7021-8 ####[facility] HOSPITALNCLIA [id number] [place] [address] [place] RBC (Bld) [#/Vol] 4.29 10*6/uL Normal 3.90-5.20 [facility] Comment on above: Order Comment: Speci men Type: BLOOD SPECIMENOrdering Facility: [facility] Address: [address] [place] [address] Performed By: #### 5 7021-8 ####[facility] HOSPITALNCLIA [id number] [place] [address] [place] WBC (Bld) [#/Vol] 5.29 10*3/uL Normal 3.70-11.00 [facility] Comment on above: Order Comment: Speci men Type: BLOOD SPECIMENOrdering Facility: [facility] Address: [address] [place] [address] Performed By: #### 5 7021-8 ####[facility] HOSPITALWNCLIA [id number] [place] [address] [place] Comprehensive metabolic 2000 panelon 01-27-2024 Albumin [Mass/Vol] 3.9 g/dL Normal 3.9-4.9 [facility] Comment on above: Order Comment: Speci men Type: BLOOD SPECIMENOrdering Facility: [facility] Address: [address] [place] [address] Performed By: #### 2 4323-8 ####[facility] HOSPITALLIA [id number] [place] [address] [place] ALP [Catalytic activity/Vol] 101 U/L Normal 34-123 [facility] Comment on above: Order Comment: Speci men Type: BLOOD SPECIMENOrdering Facility: [facility] Address: [address] [place] [address] Performed By: #### 2 4323-8 ####[facility]A [id number] [place] [address] [place] ALT [Catalytic activity/Vol] 12 U/L Normal 7-38 [facility] Comment on above: Order Comment: Speci men Type: BLOOD SPECIMENOrdering Facility: [facility] Address: [address] [place] [address] Performed By: #### 2 4323-8 ####[facility] HOSPITALNCA [id number] [place] [address] [place] Anion gap [Moles/Vol] 9 mmol/L Normal 8-15 [facility] Comment on above: Order Comment: Speci men Type: BLOOD SPECIMENOrdering Facility: [facility] Address: [address] [place] [address] Performed By: #### 2 4323-8 ####[facility] HOSPITALLIA [id number] [place] [address] [place] AST [Catalytic activity/Vol] 14 U/L Normal 13-35 [facility] Comment on above: Order Comment: Speci men Type: BLOOD SPECIMENOrdering Facility: [facility] Address: [address] [place] [address] Performed By: #### 2 4323-8 ####[facility] MILLTOWNCLIA [id number] [place] [address] [place] Bilirubin [Mass/Vol] 0.8 mg/dL Normal 0.2-1.3 [facility] Comment on above: Order Comment: Speci men Type: BLOOD SPECIMENOrdering Facility: [facility] Address: [address] [place] [address] Performed By: #### 2 4323-8 ####[facility] MILLTOWNCLIA [id number] [place] [address] [place] Calcium [Mass/Vol] 9.4 mg/dL Normal 8.5-10.2 [facility] Comment on above: Order Comment: Speci men Type: BLOOD SPECIMENOrdering Facility: [facility] Address: [address] [place] [address] Performed By: #### 2 4323-8 ####[facility] HOSPITALNCLIA [id number] [place] [address] [place] Chloride [Moles/Vol] 102 mmol/L Normal 98-107 [facility] Comment on above: Order Comment: Speci men Type: BLOOD SPECIMENOrdering Facility: [facility] Address: [address] [place] [address] Performed By: #### 2 4323-8 ####[facility] MILLTOWNCLIA [id number] [place] [address] [place] CO2 [Moles/Vol] 28 mmol/L Normal 22-30 [facility] Comment on above: Order Comment: Speci men Type: BLOOD SPECIMENOrdering Facility: [facility] Address: [address] [place], [place] [address] Performed By: #### 2 4323-8 ####[facility] MILLWNCLIA [id number] [place] [address] [place] Creatinine [Mass/Vol] 0.77 mg/dL Normal 0.58-0.96 [facility] Comment on above: Order Comment: Ruma deluna Type: BLOOD SPECIMENOrdering Facility: [facility] Address: [address] [place] [address] Performed By: #### 2 4323-8 ####[facility] [id number] [place] [address] [place] Creatinine and Glomerular filtration rate.predicted panel (S/P/Bld) 79 mL/min/1.73m??? Normal >=60 [facility] Comment on above: Order Comment: Ruma deluna Type: BLOOD SPECIMENOrdering Facility: [facility] Address: [address] [place] [address] Result Comment: Judith mated Glomerular Filtration Rate [...] actual GFR. Performed By: #### 2 4323-8 ####[facility] [id number] [place] [address] [place] Glucose [Mass/Vol] 114 mg/dL High 74-99 [facility] Comment on above: Order Comment: Ruma deluna Type: BLOOD SPECIMENOrdering Facility: [facility] Address: [address] [place] [address] Result Comment: The [place] Diabetes Association (ADA) provides guidance for cutoff [...] Standards of Medical Care in Diabetes 2016, [place] Diabetes Association. Diabetes Care. 2016.39(Suppl 1). Performed By: #### 2 4323-8 ####[facility] [id number] [place] [address] [place] Potassium [Moles/Vol] 4.1 mmol/L Normal 3.7-5.1 [facility] Comment on above: Order Comment: Speci men Type: BLOOD SPECIMENOrdering Facility: [facility] Address: [address] [place], [place] [address] Performed By: #### 2 4323-8 ####[facility] [id number] [place] [address] [place] Protein [Mass/Vol] 6.7 g/dL Normal 6.3-8.0 [facility] Comment on above: Order Comment: Speci men Type: BLOOD SPECIMENOrdering Facility: [facility] Address: [address] [place], [place] [address] Performed By: #### 2 4323-8 ####[facility] [id number] [place] [address] [place] Sodium [Moles/Vol] 139 mmol/L Normal 136-144 [facility] Comment on above: Order Comment: Speci men Type: BLOOD SPECIMENOrdering Facility: [facility] Address: [address] [place] [address] Performed By: #### 2 4323-8 ####[facility] HOSPITALLI [id number] [place] [address] [place] Urea nitrogen [Mass/Vol] 18 mg/dL Normal 7-21 [facility] Comment on above: Order Comment: Speci men Type: BLOOD SPECIMENOrdering Facility: [facility] Address: [address] [place] [address] Performed By: #### 2 4323-8 ####[facility] [id number] [place] [address] [place] Lipid 1996 panelon 4 Cholesterol [Mass/Vol] 175 mg/dL Normal <200 [facility] Comment on above: Order Comment: Speci men Type: BLOOD SPECIMENOrdering Facility: [facility] Address: [address] [place] [address] Result Comment: <200 mg/dL, Desirable 200-239 mg/dL, Borderline high>239 mg/dL, High Performed By: #### 2 4331-1 ####[facility]CL[facility] [id number] [address] [id number] [address] [place] Cholesterol in HDL [Mass/Vol] 62 mg/dL Normal >39 [facility] Comment on above: Order Comment: Speci men Type: BLOOD SPECIMENOrdering Facility: [facility] Address: [address] [place] [address] Result Comment: 40-5 9 mg/dL, Acceptable>59 mg/dL, High: Negative risk factor for coronary heart disease<40 mg/dL, Low: Positive risk factor for coronary heart disease Performed By: #### 2 4331-1 ####[facility] LABCLIA [id number] [address] [id number] [place] [address] [place] Cholesterol in LDL [Mass/Vol] 98 mg/dL Normal <100 [facility] Comment on above: Order Comment: Speci men Type: BLOOD SPECIMENOrdering Facility: [facility] Address: [address] [place] [address] Result Comment: <100 mg/dL, Optimal 100-129 mg/dL, Near optimal/above optimal 130-159 mg/dL, Borderline high 160-189 mg/dL, High>189 mg/dL, Very highSecondary prevention optimal LDL Cholesterol levels are recommended to be < 70 mg/dL Performed By: #### 2 4331-1 ####[facility] LABCLIA [id number] [address] [id number] [place] [address] [place] [facility] Cholesterol in LDL/Cholesterol in HDL [Mass ratio] 1.58 {ratio} Normal <2.54 [facility] Comment on above: Order Comment: Speci men Type: BLOOD SPECIMENOrdering Facility: [facility] Address: [address] [place] [address] Result Comment: Refe joanna:1. National Cholesterol Education Program ATP III Guideline At-A-Glance Quick Desk Reference: National Heart, Lung, and Blood [place]. National Institutes of Health. 2001: NIH Publication No. 01-3305.2. An International Atherosclerosis Society position paper: global recommendations for the management of dyslipidemia: executive summary, Atherosclerosis. 2014: 232(2):410-413. Performed By: #### 2 4331-1 ####[facility] LABCLIA [id number] [address] [id number] [place] [address] [place] Cholesterol in VLDL [Mass/Vol] 15 mg/dL Normal <30 [facility] Comment on above: Order Comment: Speci men Type: BLOOD SPECIMENOrdering Facility: [facility] Address: [address] [place] [address] Performed By: #### 2 4331-1 ####[facility]CL[facility] [id number] [address] [id number] [place] [address] [place] Cholesterol non HDL [Mass/Vol] 113 mg/dL Normal <130 [facility] Comment on above: Order Comment: Speci men Type: BLOOD SPECIMENOrdering Facility: [facility] Address: [address] [place], [place] [address] Result Comment: <130 mg/dL, Optimal 130-159 mg/dL, Near optimal/above optimal 160-189 mg/dL, Borderline high 190-219 mg/dL, High>219 mg/dL, Very highSecondary prevention optimal non HDL Cholesterol levels are recommended to be <100 mg/dL Performed By: #### 2 4331-1 ####[facility]CL[facility] [id number] [address] [id number] [place] [address] [place] Cholesterol.total/Choles terol in HDL [Mass ratio] 2.82 {ratio} Normal <5.10 [facility] Comment on above: Order Comment: Speci men Type: BLOOD SPECIMENOrdering Facility: [facility] Address: [address] [place], [place] [address] Performed By: #### 2 4331-1 ####[facility]CL[facility] [id number] [address] [id number] [place] [address] [place] FASTING TIME 10 hrs Normal [facility] Comment on above: Order Comment: Speci men Type: BLOOD SPECIMENOrdering Facility: [facility] Address: [address] [place], [place] [address] Performed By: #### 2 4331-1 ####[facility] LABCLIA [id number] [place] [id number] [facility] [id number] [place] [address] [place] Triglyceride [Mass/Vol] 77 mg/dL Normal <150 [facility] Comment on above: Order Comment: Speci men Type: BLOOD SPECIMENOrdering Facility: [facility] Address: [address] [place] [address] Result Comment: <150 mg/dL, Normal 150-199 mg/dL, Borderline high 200-499 mg/dL, High>499 mg/dL, Very high Performed By: #### 2 4331-1 ####[facility] LABCL[facility] [id number] [address] [address] [place] [id number] [place] [facility] BRITTONNORTHEASTERN VERMONT REGIONAL HOSPITALNCLIA [id number] [place] [id number] [place] [address] [place] CNPNon 01-25-2024 CNPN Normal [facility] CNNURSEon 01-18-2024 CNNURSE Normal [facility] Absolute lymphocyte countOrd ered By: Tierney Francis on 11-28-2023 Lymphocytes Auto (Unsp spec) [#/Vol] 0.85 10*3/uL 0.83-4.51 [facility] Automated lymphocyte count a s percentage of total leukocytesOrdered By: Tierney Francis on 11-28-2023 Lymphocytes/100 WBC Auto (Unsp spec) 15.1 % 19-41 [facility] Basophil percentageOrdered B y: Tierney Francis on 11-28-2023 Basophils/100 WBC (Bld) 0.4 % 0-1 [facility] Chloride [Moles/Vol] 102 mmol/L 98-107 [facility] Eosinophils/100 WBC (Bld) 4.6 % 0-5 [facility] Glucose [Mass/Vol] 325 mg/dL 74-[address] [facility] Comment on above: Glucose result great er than or equal to 200 mg/dLsuggests DIABETES MELLITUS per A.D.A. criteria. Hemoglobin (Bld) [Mass/Vol] 12.5 g/dL 12.0-15.0 [facility] Monocytes/100 WBC (Bld) 8.2 % 0-10 [facility] Neutrophils (Bld) [#/Vol] 4.0 10*3/uL 2.0-7.7 [facility] Neutrophils/100 WBC (Bld) 71.5 % 47-70 [facility] Potassium [Moles/Vol] 3.9 mmol/L 3.5-5.1 [facility] Sodium [Moles/Vol] 136 mmol/L 136-[address] [facility] WBC (Bld) [#/Vol] 5.6 10*3/uL 4.4-11.[address] [facility] Determination of erythrocyte mean corpuscular volume (MCV)Ordered By: Tierney Francis on 11-28-2023 MCV (RBC) [Entitic vol] 90.1 fL 81-99 [facility] Erythrocyte distribution wid th ratioOrdered By: Tierney Francis on 11-28-2023 Erythrocyte distribution width (RBC) [Ratio] 12.7 % 11.6-14.6 [facility] Erythrocyte distribution wid th standard deviationOrdered By: Tierney Francis on 11-28-2023 Erythrocyte distribution width (RBC) [Entitic vol] 41.8 fL 35.1-43.9 [facility] Hematocrit Auto (Bld) [Volum e fraction]Ordered By: Tierney Francis on 11-28-2023 Hematocrit (Bld) [Volume fraction] 39.3 % 37-47 [facility] Immature granulocytes/100 WB C Auto (Bld)Ordered By: Tierney Francis on 11-28-2023 Immature granulocytes/100 WBC (Bld) 0.200 % 0.0-0.9 [facility] Comment on above: IG% - Immature Granu locytes (promyelocytes, myelocytes and metamyelocytes) > 1% indicates that a LEFT SHIFT is Present. Laboratory - Chemistry and C hemistry - challengeOrdered By: Tierney Francis on 11-28-2023 CO2 [Moles/Vol] 31.0 mmol/L 21.0-32.0 [facility] Urea nitrogen/Creatinine [Mass ratio] 18.2 mg/mg 10-20 [facility] Laboratory - Hematology and Cell countsOrdered By: Tierney Francis on 11-28-2023 MCH (RBC) [Entitic mass] 28.7 pg 27.0-32.0 [facility] MCHC (RBC) [Mass/Vol] 31.8 g/dL 32-36 [facility] Nucleated RBC/100 WBC (Bld) [Ratio] 0 % 0-5 [facility] Platelet mean volume (Bld) [Entitic vol] 12.4 fL 6.2-12.0 [facility] Platelets (Bld) [#/Vol] 181 10*3/uL 150-450 [facility] No Panel InformationOrdered By: Tierney Francis on 11-28-2023 Estimated Creatinine Clearance Calc 84.86 ml/min [facility] Estimated GFR (MDRD) Amer 80 mL/min >60 [facility] Comment on above: GFR Calc Estimated GFR (MDRD) Non-Af Amer 66 mL/min >60 [facility] Comment on above: Non- GFR Calc RBC Auto (Bld) [#/Vol]Ordere d By: Tierney Francis on 11-28-2023 RBC (Bld) [#/Vol] 4.36 10*6/uL 4.2-5.4 [facility] Serum or plasma calcium zora urement (mass/volume)Ordered By: Tierney Francis on 11-28-2023 Calcium [Mass/Vol] 9.1 mg/dL 8.5-10.[address] [facility] Serum or plasma creatinine m easurement (mass/volume)Ordered By: Tierney Francis on 11-28-2023 Creatinine [Mass/Vol] 0.88 mg/dL 0.55-1.02 [facility] Comment on above: The validity of the calculated GFR & GFRAA in patients over 70 years has not been determined. Clinical correlation is essential. Serum or plasma urea nitroge n measurement (mass/volume)Ordered By: Tierney Francis on 11-28-2023 Urea nitrogen [Mass/Vol] 16 mg/dL 7-18 [facility] Thin prep Papanicolaou smear with manual screeningOrdered By: Tierney Francis on 11-28-2023 Thin prep Papanicolaou smear with manual screening 3 5-15 [facility] Thin prep Papanicolaou smear with manual screening 309 mg/dL 74-106 [facility] Comment on above: MANAGEMENT OF PATIEN T CARE PER NURSING PROTOCOL Thin prep Papanicolaou smear with manual screeningOrdered By: Tierney Francis on 11-07-2023 Thin prep Papanicolaou smear with manual screening 282 mg/dL 74-106 [facility] Comment on above: MANAGEMENT OF PATIEN T CARE PER NURSING PROTOCOL Absolute lymphocyte countOrd ered By: Holland Sanches on 11-06-2023 Lymphocytes Auto (Unsp spec) [#/Vol] 0.97 10*3/uL 0.83-4.51 [facility] Automated lymphocyte count a s percentage of total leukocytesOrdered By: Holland Sanches on 11-06-2023 Lymphocytes/100 WBC Auto (Unsp spec) 15.2 % 19-41 [facility] Basophil percentageOrdered B y: Holland Sanches on 11-06-2023 Basophils/100 WBC (Bld) 0.5 % 0-1 [facility] Chloride [Moles/Vol] 103 mmol/L 98-107 [facility] Eosinophils/100 WBC (Bld) 5.8 % 0-5 [facility] Glucose [Mass/Vol] 160 mg/dL 74-[address] [facility] Comment on above: Fasting Glucose resu lt greater than or equal to 126 mg/dL suggests DIABETES MELLITUS per A.D.A. criteria. Hemoglobin (Bld) [Mass/Vol] 12.8 g/dL 12.0-15.0 [facility] Monocytes/100 WBC (Bld) 6.9 % 0-10 [facility] Neutrophils (Bld) [#/Vol] 4.6 10*3/uL 2.0-7.7 [facility] Neutrophils/100 WBC (Bld) 71.4 % 47-70 [facility] Potassium [Moles/Vol] 4.0 mmol/L 3.5-5.1 [facility] Sodium [Moles/Vol] 138 mmol/L 136-[address] [facility] WBC (Bld) [#/Vol] 6.4 10*3/uL 4.4-11.[address] [facility] Determination of erythrocyte mean corpuscular volume (MCV)Ordered By: Holland Sanches on 11-06-2023 MCV (RBC) [Entitic vol] 89.7 fL 81-99 [facility] Erythrocyte distribution wid th ratioOrdered By: Holland Sanches on 11-06-2023 Erythrocyte distribution width (RBC) [Ratio] 13.2 % 11.6-14.6 [facility] Erythrocyte distribution wid th standard deviationOrdered By: Holland Sanches on 11-06-2023 Erythrocyte distribution width (RBC) [Entitic vol] 42.9 fL 35.1-43.9 [facility] Hematocrit Auto (Bld) [Volum e fraction]Ordered By: Holland Sanches on 11-06-2023 Hematocrit (Bld) [Volume fraction] 39.0 % 37-47 [facility] Immature granulocytes/100 WB C Auto (Bld)Ordered By: Holland Sanches on 11-06-2023 Immature granulocytes/100 WBC (Bld) 0.200 % 0.0-0.9 [facility] Comment on above: IG% - Immature Granu locytes (promyelocytes, myelocytes and metamyelocytes) > 1% indicates that a LEFT SHIFT is Present. Laboratory - Chemistry and C hemistry - challengeOrdered By: Holland Sanches on 11-06-2023 CO2 [Moles/Vol] 29.0 mmol/L 21.0-32.0 [facility] Urea nitrogen/Creatinine [Mass ratio] 28.9 mg/mg 10-20 [facility] Laboratory - Hematology and Cell countsOrdered By: Holland Sanches on 11-06-2023 MCH (RBC) [Entitic mass] 29.4 pg 27.0-32.0 [facility] MCHC (RBC) [Mass/Vol] 32.8 g/dL 32-36 [facility] Nucleated RBC/100 WBC (Bld) [Ratio] 0 % 0-5 [facility] Platelet mean volume (Bld) [Entitic vol] 13.0 fL 6.2-12.0 [facility] Platelets (Bld) [#/Vol] 200 10*3/uL 150-450 [facility] No Panel InformationOrdered By: Holland Sanches on 11-06-2023 Troponin I High Sensitivity 12 pg/mL 3.0-54.0 [facility] Comment on above: Please Note: New Mariajose t Units and Gender Specific Reference Ranges. For more information see Policy Stat Procedure [place] High Sensitivity Troponin (TNIH) and attachments. Estimated GFR (MDRD) Amer 81 mL/min >60 [facility] Comment on above: GFR Calc Estimated GFR (MDRD) Non-Af Amer 67 mL/min >60 [facility] Comment on above: Non- GFR Calc RBC Auto (Bld) [#/Vol]Ordere d By: Holland Sanches on 11-06-2023 RBC (Bld) [#/Vol] 4.35 10*6/uL 4.2-5.4 [facility] Serum or plasma calcium zora urement (mass/volume)Ordered By: Holland Sanches on 11-06-2023 Calcium [Mass/Vol] 9.1 mg/dL 8.5-10.[address] [facility] Serum or plasma creatinine m easurement (mass/volume)Ordered By: Holland Sanches on 11-06-2023 Creatinine [Mass/Vol] 0.87 mg/dL 0.55-1.02 [facility] Comment on above: The validity of the calculated GFR & GFRAA in patients over 70 years has not been determined. Clinical correlation is essential. Serum or plasma urea nitroge n measurement (mass/volume)Ordered By: Holland Sanches on 11-06-2023 Urea nitrogen [Mass/Vol] 25 mg/dL 02-01 [facility] Thin prep Papanicolaou smear with manual screeningOrdered By: Holland Sanches on 11-06-2023 Thin prep Papanicolaou smear with manual screening 6 11-29 [facility] US DVT LOWER RTon 10-31-2023 US DVT [...] imaged segments of the right lower extremity. Senior Health Physics Technician: [facility] Transcribe Date/Time: Oct 31 2023 1:20P Dictated by : ENDY GOODMAN MD This examination was interpreted and the report reviewed and electronically signed by: ENDY GOODMAN MD on Oct 31 2023 1:21PM EST [id number] Normal [facility] US Lower extremity vein - shaun corona 10-31-2023 [facility] Absolute lymphocyte countOrd ered By: Tierney Francis on 10-28-2023 Lymphocytes Auto (Unsp spec) [#/Vol] 0.72 10*3/uL 0.83-4.51 [facility] Automated lymphocyte count a s percentage of total leukocytesOrdered By: Tierney Francis on 10-28-2023 Lymphocytes/100 WBC Auto (Unsp spec) 14.4 % 19-41 [facility] Basophil percentageOrdered B y: Tierney Francis on 10-28-2023 Basophils/100 WBC (Bld) 0.6 % 0-1 [facility] Chloride [Moles/Vol] 103 mmol/L 98-107 [facility] Eosinophils/100 WBC (Bld) 5.4 % 0-5 [facility] Glucose [Mass/Vol] 315 mg/dL 74-[address] [facility] Comment on above: Glucose result great er than or equal to 200 mg/dLsuggests DIABETES MELLITUS per A.D.A. criteria. Hemoglobin (Bld) [Mass/Vol] 12.5 g/dL 12.0-15.0 [facility] Monocytes/100 WBC (Bld) 6.2 % 0-10 [facility] Neutrophils (Bld) [#/Vol] 3.7 10*3/uL 2.0-7.7 [facility] Neutrophils/100 WBC (Bld) 73.4 % 47-70 [facility] Potassium [Moles/Vol] 4.0 mmol/L 3.5-5.1 [facility] Sodium [Moles/Vol] 136 mmol/L 136-[address] [facility] WBC (Bld) [#/Vol] 5.0 10*3/uL 4.4-11.[address] [facility] Determination of erythrocyte mean corpuscular volume (MCV)Ordered By: Tierney Francis on 10-28-2023 MCV (RBC) [Entitic vol] 89.3 fL 81-99 [facility] Erythrocyte distribution wid th ratioOrdered By: Tierney Francis on 10-28-2023 Erythrocyte distribution width (RBC) [Ratio] 12.9 % 11.6-14.6 [facility] Erythrocyte distribution wid th standard deviationOrdered By: Tierney Francis on 10-28-2023 Erythrocyte distribution width (RBC) [Entitic vol] 42.0 fL 35.1-43.9 [facility] Hematocrit Auto (Bld) [Volum e fraction]Ordered By: Tierney Francis on 10-28-2023 Hematocrit (Bld) [Volume fraction] 38.4 % 37-47 [facility] Immature granulocytes/100 WB C Auto (Bld)Ordered By: Tierney Francis on 10-28-2023 Immature granulocytes/100 WBC (Bld) 0.000 % 0.0-0.9 [facility] Comment on above: IG% - Immature Granu locytes (promyelocytes, myelocytes and metamyelocytes) > 1% indicates that a LEFT SHIFT is Present. Laboratory - Chemistry and C hemistry - challengeOrdered By: Tierney Francis on 10-28-2023 CO2 [Moles/Vol] 29.0 mmol/L 21.0-32.0 [facility] Urea nitrogen/Creatinine [Mass ratio] 22.1 mg/mg 10-20 [facility] Laboratory - Hematology and Cell countsOrdered By: Tierney Francis on 10-28-2023 MCH (RBC) [Entitic mass] 29.1 pg 27.0-32.0 [facility] MCHC (RBC) [Mass/Vol] 32.6 g/dL 32-36 [facility] Nucleated RBC/100 WBC (Bld) [Ratio] 0 % 0-5 [facility] Platelet mean volume (Bld) [Entitic vol] 12.1 fL 6.2-12.0 [facility] Platelets (Bld) [#/Vol] 170 10*3/uL 150-450 [facility] No Panel InformationOrdered By: Tierney Francis on 10-28-2023 Estimated Creatinine Clearance Calc 78.68 ml/min [facility] Estimated GFR (MDRD) Amer 73 mL/min >60 [facility] Comment on above: GFR Calc Estimated GFR (MDRD) Non-Af Amer 60 mL/min >60 [facility] Comment on above: Non- GFR Calc Troponin I High Sensitivity 10 pg/mL 3.0-54.0 [facility] Comment on above: Please Note: New Mariajose t Units and Gender Specific Reference Ranges. For more information see Policy Stat Procedure [place] High Sensitivity Troponin (TNIH) and attachments. RBC Auto (Bld) [#/Vol]Ordere d By: Tierney Francis on 10-28-2023 RBC (Bld) [#/Vol] 4.30 10*6/uL 4.2-5.4 [facility] Serum or plasma calcium zora urement (mass/volume)Ordered By: Tierney Francis on 10-28-2023 Calcium [Mass/Vol] 8.8 mg/dL 8.5-10.[address] [facility] Serum or plasma creatinine m easurement (mass/volume)Ordered By: Tierney Francis on 10-28-2023 Creatinine [Mass/Vol] 0.95 mg/dL 0.55-1.02 [facility] Comment on above: The validity of the calculated GFR & GFRAA in patients over 70 years has not been determined. Clinical correlation is essential. Serum or plasma urea nitroge n measurement (mass/volume)Ordered By: Tierney Francis on 10-28-2023 Urea nitrogen [Mass/Vol] 21 mg/dL 7-18 [facility] Thin prep Papanicolaou smear with manual screeningOrdered By: Tierney Francis on 10-28-2023 Thin prep Papanicolaou smear with manual screening 288 mg/dL - [facility] Comment on above: MANAGEMENT OF PATIEN T CARE PER NURSING PROTOCOL Thin prep Papanicolaou smear with manual screening 274 mg/dL [facility] Comment on above: MANAGEMENT OF PATIEN T CARE PER NURSING PROTOCOL Thin prep Papanicolaou smear with manual screening 4 5-15 [facility] Absolute lymphocyte countOrd ered By: Amber Martino on 10-01-2023 Lymphocytes Auto (Unsp spec) [#/Vol] 0.78 10*3/uL 0.83-4.51 [facility] Automated lymphocyte count a s percentage of total leukocytesOrdered By: Amber Martino on 10-01-2023 Lymphocytes/100 WBC Auto (Unsp spec) 9.3 % 19-41 [facility] Basophil percentageOrdered B y: Amber Martino on 10-01-2023 Basophils/100 WBC (Bld) 0.4 % 0-1 [facility] Chloride [Moles/Vol] 103 mmol/L 98-107 [facility] Eosinophils/100 WBC (Bld) 1.2 % 0-5 [facility] Glucose [Mass/Vol] 163 mg/dL 74-[address] [facility] Comment on above: Fasting Glucose resu lt greater than or equal to 126 mg/dL suggests DIABETES MELLITUS per A.D.A. criteria. Hemoglobin (Bld) [Mass/Vol] 12.7 g/dL 12.0-15.0 [facility] Monocytes/100 WBC (Bld) 7.6 % 0-10 [facility] Neutrophils (Bld) [#/Vol] 6.9 10*3/uL 2.0-7.7 [facility] Neutrophils/100 WBC (Bld) 81.4 % 47-70 [facility] Potassium [Moles/Vol] 3.9 mmol/L 3.5-5.1 [facility] Sodium [Moles/Vol] 138 mmol/L 136-[address] [facility] WBC (Bld) [#/Vol] 8.4 10*3/uL 4.4-11.[address] [facility] Determination of erythrocyte mean corpuscular volume (MCV)Ordered By: Amber Martino on 10-01-2023 MCV (RBC) [Entitic vol] 89.2 fL 81-99 [facility] Erythrocyte distribution wid th ratioOrdered By: Amber Martino on 10-01-2023 Erythrocyte distribution width (RBC) [Ratio] 12.5 % 11.6-14.6 [facility] Erythrocyte distribution wid th standard deviationOrdered By: Amber Martino on 10-01-2023 Erythrocyte distribution width (RBC) [Entitic vol] 41.0 fL 35.1-43.9 [facility] Hematocrit Auto (Bld) [Volum e fraction]Ordered By: Amber Martino on 10-01-2023 Hematocrit (Bld) [Volume fraction] 39.6 % 37-47 [facility] Immature granulocytes/100 WB C Auto (Bld)Ordered By: Amber Martino on 10-01-2023 Immature granulocytes/100 WBC (Bld) 0.100 % 0.0-0.9 [facility] Comment on above: IG% - Immature Granu locytes (promyelocytes, myelocytes and metamyelocytes) > 1% indicates that a LEFT SHIFT is Present. Laboratory - Chemistry and C hemistry - challengeOrdered By: Amber Maritno on 10-01-2023 CO2 [Moles/Vol] 29.0 mmol/L 21.0-32.0 [facility] Urea nitrogen/Creatinine [Mass ratio] 15.7 mg/mg 10-20 [facility] Laboratory - Hematology and Cell countsOrdered By: Amber Martino on 10-01-2023 MCH (RBC) [Entitic mass] 28.6 pg 27.0-32.0 [facility] MCHC (RBC) [Mass/Vol] 32.1 g/dL 32-36 [facility] Nucleated RBC/100 WBC (Bld) [Ratio] 0 % 0-5 [facility] Platelet mean volume (Bld) [Entitic vol] 12.1 fL 6.2-12.0 [facility] Platelets (Bld) [#/Vol] 182 10*3/uL 150-450 [facility] Laboratory - Microbiology an d Antimicrobial susceptibilityOrdered By: Amber Martino on 10-01-2023 SARS-CoV-2 (COVID-19) RNA RAYMOND+probe Ql (Unsp spec) [facility] No Panel InformationOrdered By: Amber Martnio on 10-01-2023 Estimated Creatinine Clearance Calc 92.45 ml/min [facility] Estimated GFR (MDRD) Amer 94 mL/min >60 [facility] Comment on above: GFR Calc Estimated GFR (MDRD) Non-Af Amer 78 mL/min >60 [facility] Comment on above: Non- GFR Calc Troponin I High Sensitivity 8 pg/mL 3.0-54.0 [facility] Comment on above: Please Note: New Mariajose t Units and Gender Specific Reference Ranges. For more information see Policy Stat Procedure [place] High Sensitivity Troponin (TNIH) and attachments. RBC Auto (Bld) [#/Vol]Ordere d By: Amber Martino on 10-01-2023 RBC (Bld) [#/Vol] 4.44 10*6/uL 4.2-5.4 [facility] Serum or plasma calcium zora urement (mass/volume)Ordered By: Amber Martino on 10-01-2023 Calcium [Mass/Vol] 9.0 mg/dL 8.5-10.[address] [facility] Serum or plasma creatinine m easurement (mass/volume)Ordered By: Amber Martino on 10-01-2023 Creatinine [Mass/Vol] 0.77 mg/dL 0.55-1.02 [facility] Comment on above: The validity of the calculated GFR & GFRAA in patients over 70 years has not been determined. Clinical correlation is essential. Serum or plasma urea nitroge n measurement (mass/volume)Ordered By: Amber Martino on 10-01-2023 Urea nitrogen [Mass/Vol] 12 mg/dL 7-18 [facility] Thin prep Papanicolaou smear with manual screeningOrdered By: Amber Martino on 10-01-2023 Thin prep Papanicolaou smear with manual screening 6 5-15 [facility] Absolute lymphocyte countOrd ered By: Nik Nunez on 09-21-2023 Lymphocytes Auto (Unsp spec) [#/Vol] 1.12 10*3/uL 0.83-4.51 [facility] Automated lymphocyte count a s percentage of total leukocytesOrdered By: Nik Nunez on 09-21-2023 Lymphocytes/100 WBC Auto (Unsp spec) 17.9 % 19-41 [facility] Basophil percentageOrdered B y: Nik Nunez on 09-21-2023 Basophils/100 WBC (Bld) 0.3 % 0-1 [facility] Chloride [Moles/Vol] 107 mmol/L 98-107 [facility] Eosinophils/100 WBC (Bld) 5.8 % 0-5 [facility] Glucose [Mass/Vol] 148 mg/dL 74-[address] [facility] Comment on above: Fasting Glucose resu lt greater than or equal to 126 mg/dL suggests DIABETES MELLITUS per A.D.A. criteria. Hemoglobin (Bld) [Mass/Vol] 12.5 g/dL 12.0-15.0 [facility] Monocytes/100 WBC (Bld) 8.3 % 0-10 [facility] Neutrophils (Bld) [#/Vol] 4.2 10*3/uL 2.0-7.7 [facility] Neutrophils/100 WBC (Bld) 67.5 % 47-70 [facility] Potassium [Moles/Vol] 3.8 mmol/L 3.5-5.1 [facility] Sodium [Moles/Vol] 139 mmol/L 136-[address] [facility] WBC (Bld) [#/Vol] 6.3 10*3/uL 4.4-11.[address] [facility] Determination of erythrocyte mean corpuscular volume (MCV)Ordered By: Nik Nunez on 09-21-2023 MCV (RBC) [Entitic vol] 88.2 fL 81-99 [facility] Erythrocyte distribution wid th ratioOrdered By: Nik Nunez on 09-21-2023 Erythrocyte distribution width (RBC) [Ratio] 12.6 % 11.6-14.6 [facility] Erythrocyte distribution wid th standard deviationOrdered By: Nik Nunez on 09-21-2023 Erythrocyte distribution width (RBC) [Entitic vol] 40.6 fL 35.1-43.9 [facility] Hematocrit Auto (Bld) [Volum e fraction]Ordered By: Nik Nunez on 09-21-2023 Hematocrit (Bld) [Volume fraction] 38.8 % 37-47 [facility] Immature granulocytes/100 WB C Auto (Bld)Ordered By: Niknola Nunez on 09-21-2023 Immature granulocytes/100 WBC (Bld) 0.200 % 0.0-0.9 [facility] Comment on above: IG% - Immature Granu locytes (promyelocytes, myelocytes and metamyelocytes) > 1% indicates that a LEFT SHIFT is Present. Laboratory - Chemistry and C hemistry - challengeOrdered By: Nik Nunez on 09-21-2023 CO2 [Moles/Vol] 29.0 mmol/L 21.0-32.0 [facility] Urea nitrogen/Creatinine [Mass ratio] 16.0 mg/mg 10-20 [facility] Laboratory - Hematology and Cell countsOrdered By: Nik Nunez on 09-21-2023 MCH (RBC) [Entitic mass] 28.4 pg 27.0-32.0 [facility] MCHC (RBC) [Mass/Vol] 32.2 g/dL 32-36 [facility] Nucleated RBC/100 WBC (Bld) [Ratio] 0 % 0-5 [facility] Platelet mean volume (Bld) [Entitic vol] 11.8 fL 6.2-12.0 [facility] Platelets (Bld) [#/Vol] 209 10*3/uL 150-450 [facility] No Panel InformationOrdered By: Niknola Nunez on 09-21-2023 Troponin I High Sensitivity 10 pg/mL 3.0-54.0 [facility] Comment on above: Please Note: New Mariajose t Units and Gender Specific Reference Ranges. For more information see Policy Stat Procedure [place] High Sensitivity Troponin (TNIH) and attachments. Estimated Creatinine Clearance Calc 74.72 ml/min [facility] Estimated GFR (MDRD) Amer 69 mL/min >60 [facility] Comment on above: GFR Calc Estimated GFR (MDRD) Non-Af Amer 57 mL/min >60 [facility] Comment on above: Non- GFR Calc RBC Auto (Bld) [#/Vol]Ordere d By: Nik Nunez on 09-21-2023 RBC (Bld) [#/Vol] 4.40 10*6/uL 4.2-5.4 [facility] Serum or plasma calcium zora urement (mass/volume)Ordered By: Nik Nunez on 09-21-2023 Calcium [Mass/Vol] 9.0 mg/dL 8.5-10.[address] [facility] Serum or plasma creatinine m easurement (mass/volume)Ordered By: Nik Nunez on 09-21-2023 Creatinine [Mass/Vol] 1.00 mg/dL 0.55-1.02 [facility] Comment on above: The validity of the calculated GFR & GFRAA in patients over 70 years has not been determined. Clinical correlation is essential. Serum or plasma urea nitroge n measurement (mass/volume)Ordered By: Nik Nunez on 09-21-2023 Urea nitrogen [Mass/Vol] 16 mg/dL 7-18 [facility] Thin prep Papanicolaou smear with manual screeningOrdered By: Nik Nunez on 09-21-2023 Thin prep Papanicolaou smear with manual screening 3 5-15 [facility] Absolute lymphocyte countOrd ered By: Benjamín Stanford on 09-16-2023 Lymphocytes Auto (Unsp spec) [#/Vol] 1.04 10*3/uL 0.83-4.51 [facility] Automated lymphocyte count a s percentage of total leukocytesOrdered By: Benjamín Stanford on 09-16-2023 Lymphocytes/100 WBC Auto (Unsp spec) 14.9 % 19-41 [facility] Basophil percentageOrdered B y: Benjamín Stanford on 09-16-2023 Basophils/100 WBC (Bld) 0.7 % 0-1 [facility] Chloride [Moles/Vol] 104 mmol/L 98-107 [facility] Eosinophils/100 WBC (Bld) 4.1 % 0-5 [facility] Glucose [Mass/Vol] 144 mg/dL 74-[address] [facility] Comment on above: Fasting Glucose resu lt greater than or equal to 126 mg/dL suggests DIABETES MELLITUS per A.D.A. criteria. Hemoglobin (Bld) [Mass/Vol] 13.0 g/dL 12.0-15.0 [facility] Monocytes/100 WBC (Bld) 7.7 % 0-10 [facility] Neutrophils (Bld) [#/Vol] 5.1 10*3/uL 2.0-7.7 [facility] Neutrophils/100 WBC (Bld) 72.2 % 47-70 [facility] Potassium [Moles/Vol] 3.7 mmol/L 3.5-5.1 [facility] Sodium [Moles/Vol] 137 mmol/L 136-[address] [facility] WBC (Bld) [#/Vol] 7.0 10*3/uL 4.4-11.[address] [facility] Determination of erythrocyte mean corpuscular volume (MCV)Ordered By: Benjamín Stanford on 09-16-2023 MCV (RBC) [Entitic vol] 88.9 fL 81-99 [facility] Erythrocyte distribution wid th ratioOrdered By: Benjamín Stanford on 09-16-2023 Erythrocyte distribution width (RBC) [Ratio] 12.5 % 11.6-14.6 [facility] Erythrocyte distribution wid th standard deviationOrdered By: Benjamín Stanford on 09-16-2023 Erythrocyte distribution width (RBC) [Entitic vol] 40.3 fL 35.1-43.9 [facility] Hematocrit Auto (Bld) [Volum e fraction]Ordered By: Benjamín Stanford on 09-16-2023 Hematocrit (Bld) [Volume fraction] 40.7 % 37-47 [facility] Immature granulocytes/100 WB C Auto (Bld)Ordered By: Benjamín Stanford on 09-16-2023 Immature granulocytes/100 WBC (Bld) 0.400 % 0.0-0.9 [facility] Comment on above: IG% - Immature Granu locytes (promyelocytes, myelocytes and metamyelocytes) > 1% indicates that a LEFT SHIFT is Present. Laboratory - Chemistry and C hemistry - challengeOrdered By: Benjamín Stanford on 09-16-2023 CO2 [Moles/Vol] 28.0 mmol/L 21.0-32.0 [facility] Urea nitrogen/Creatinine [Mass ratio] 21.6 mg/mg 10-20 [facility] Laboratory - Hematology and Cell countsOrdered By: Benjamín Stanford on 09-16-2023 MCH (RBC) [Entitic mass] 28.4 pg 27.0-32.0 [facility] MCHC (RBC) [Mass/Vol] 31.9 g/dL 32-36 [facility] Nucleated RBC/100 WBC (Bld) [Ratio] 0 % 0-5 [facility] Platelet mean volume (Bld) [Entitic vol] 12.2 fL 6.2-12.0 [facility] Platelets (Bld) [#/Vol] 230 10*3/uL 150-450 [facility] No Panel InformationOrdered By: Benjamín Stanford on 09-16-2023 Estimated Creatinine Clearance Calc 78.67 ml/min [facility] Estimated GFR (MDRD) Amer 75 mL/min >60 [facility] Comment on above: GFR Calc Estimated GFR (MDRD) Non-Af Amer 62 mL/min >60 [facility] Comment on above: Non- GFR Calc RBC Auto (Bld) [#/Vol]Ordere d By: Benjamín Stanford on 09-16-2023 RBC (Bld) [#/Vol] 4.58 10*6/uL 4.2-5.4 [facility] Serum or plasma calcium zora urement (mass/volume)Ordered By: Benjamín Stanford on 09-16-2023 Calcium [Mass/Vol] 9.2 mg/dL 8.5-10.[address] [facility] Serum or plasma creatinine m easurement (mass/volume)Ordered By: Benjamín Stanford on 09-16-2023 Creatinine [Mass/Vol] 0.93 mg/dL 0.55-1.02 [facility] Comment on above: The validity of the calculated GFR & GFRAA in patients over 70 years has not been determined. Clinical correlation is essential. Serum or plasma thyroid stim ulating hormone (TSH) measurement (units/volume)Ordered By: Benjamín Stanford on 09-16-2023 TSH Qn 2.95 uIU/mL 0.358-3.74 [facility] Serum or plasma urea nitroge n measurement (mass/volume)Ordered By: Benjamín Stanford on 09-16-2023 Urea nitrogen [Mass/Vol] 20 mg/dL 7-18 [facility] Thin prep Papanicolaou smear with manual screeningOrdered By: Benjamín Stanford on 09-16-2023 Thin prep Papanicolaou smear with manual screening 5 -15 [facility] CBC W Auto Differential pane l (Bld)on 09-01-2023 Basophils (Bld) [#/Vol] 0.03 10*3/uL <0.11 k/uL [facility] Basophils/100 WBC (Bld) 0.4 % [facility] Differential cell count method Nom (Bld) Auto [facility] Eosinophils (Bld) [#/Vol] 0.26 10*3/uL <0.46 k/uL [facility] Eosinophils/100 WBC (Bld) 3.6 % [facility] Erythrocyte distribution width (RBC) [Ratio] 12.6 % 11.5 - 15.0 % [facility] Hematocrit (Bld) [Volume fraction] 39.8 % 36.0 - 46.0 % [facility] Hemoglobin (Bld) [Mass/Vol] 13.0 g/dL 11.5 - 15.5 g/dL [facility] Immature granulocytes (Bld) [#/Vol] <0.10 k/uL [facility] Immature granulocytes/100 WBC (Bld) 0.3 % [facility] Lymphocytes (Bld) [#/Vol] 0.48 10*3/uL Low 1.00 - 4.00 k/uL [facility] Lymphocytes/100 WBC (Bld) 6.6 % [facility] MCH (RBC) [Entitic mass] 29.3 pg 26. 0 - 34.0 pg [facility] MCHC (RBC) [Mass/Vol] 32.7 g/dL 30.5 - 36.0 g/dL [facility] MCV (RBC) [Entitic vol] 89.8 fL 80.0 - 100.0 fL [facility] Monocytes (Bld) [#/Vol] 0.46 10*3/uL <0.87 k/uL [facility] Monocytes/100 WBC (Bld) 6.3 % [facility] Neutrophils (Bld) [#/Vol] 6.05 10*3/uL 1.45 - 7.50 k/uL [facility] Neutrophils/100 WBC (Bld) 82.8 % [facility] Nucleated RBC (Bld) [#/Vol] <0.01 k/uL [facility] Nucleated RBC/100 WBC (Bld) [Ratio] 0.0 /100 WBC [facility] Platelet mean volume (Bld) [Entitic vol] 12.7 fL 9.0 - 12.7 fL [facility] Platelets (Bld) [#/Vol] 199 10*3/uL 150 - 400 k/uL [facility] RBC (Bld) [#/Vol] 4.43 10*6/uL 3.90 - 5.2 0 m/uL [facility] WBC (Bld) [#/Vol] 7.30 10*3/uL 3.70 - 11.00 k/uL [facility] No Panel Informationon 06-23 [facility] SPIROMETRY BASELINE ONLYon 1 08-24-2022 HSN12-81% PRE (L/S) 0.93 L/S [facility] FEV1 PRE (L) 1.64 L [facility] FEV1/FVC PRE (%) 67 % [facility] FVC PRE (L) 2.47 L [facility] PEF PRE (L/S) 5.38 L/S [facility] Absolute lymphocyte countOrd ered By: Jesus Kessler on 05-28-2023 Lymphocytes Auto (Unsp spec) [#/Vol] 1.01 10*3/uL 0.83-4.51 [facility] Basophil percentageOrdered B y: Jesus Kessler on 05-28-2023 Basophils/100 WBC (Bld) 0.5 % 0-1 [facility] Chloride [Moles/Vol] 106 mmol/L 98-107 [facility] Eosin[facility]/100 WBC (Bld) 4.4 % 0-5 [facility] Glucose [Mass/Vol] 170 mg/dL 74-[address] [facility] Comment on above: Fasting Glucose resu lt greater than or equal to 126 mg/dL suggests DIABETES MELLITUS per A.D.A. criteria. Neutrophils (Bld) [#/Vol] 4.8 10*3/uL 2.0-7.7 [facility] Neutrophils/100 WBC (Bld) 72.7 % 47-70 [facility] Potassium [Moles/Vol] 4.3 mmol/L 3.5-5.1 [facility] Sodium [Moles/Vol] 138 mmol/L 136-[address] [facility] WBC (Bld) [#/Vol] 6.5 10*3/uL 4.4-11.[address] [facility] Blood erythrocytes count (nu mber/volume)Ordered By: Jesus Kessler on 05-28-2023 RBC (Bld) [#/Vol] 4.29 10*6/uL 4.2-5.4 [facility] Blood hemoglobin measurement (mass/volume)Ordered By: Jesus Kessler on 05-28-2023 Hemoglobin (Bld) [Mass/Vol] 12.7 g/dL 12.0-15.0 [facility] Blood lymphocytes/100 leukoc ytesOrdered By: Jesus Kessler on 05-28-2023 Lymphocytes/100 WBC (Bld) 15.4 % 19-41 [facility] Blood monocytes/100 leukocyt esOrdered By: Jesus Kessler on 05-28-2023 Monocytes/100 WBC (Bld) 7.0 % 0-10 [facility] Blood platelet mean volumeOr dered By: Jesus Kessler on 05-28-2023 Platelet mean volume (Bld) [Entitic vol] 11.6 fL 6.2-12.0 [facility] Determination of erythrocyte mean corpuscular volume (MCV)Ordered By: Jesus Kessler on 05-28-2023 MCV (RBC) [Entitic vol] 90.9 fL 81-99 [facility] Glucose Glucometer (BldC) [M ass/Vol]Ordered By: Jesus Kessler on 05-28-2023 Glucose [Mass/Vol] 168 mg/dL 74-[address] [facility] Comment on above: MANAGEMENT OF PATIEN T CARE PER NURSING PROTOCOL Hematocrit Auto (Bld) [Volum e fraction]Ordered By: Jesus Kessler on 05-28-2023 Hematocrit (Bld) [Volume fraction] 39.0 % 37-47 [facility] Laboratory - Chemistry and C hemistry - challengeOrdered By: Jesus Kessler on 05-28-2023 CO2 [Moles/Vol] 31.0 mmol/L 21.0-32.0 [facility] Urea nitrogen/Creatinine [Mass ratio] 20.5 mg/mg 10-20 [facility] Laboratory - Hematology and Cell countsOrdered By: Jesus Kessler on 05-28-2023 Erythrocyte distribution width (RBC) [Entitic vol] 41.7 fL 35.1-43.9 [facility] Erythrocyte distribution width (RBC) [Ratio] 12.9 % 11.6-14.6 [facility] Immature granulocytes/100 WBC (Bld) 0.000 % 0.0-0.9 [facility] Comment on above: IG% - Immature Granu locytes (promyelocytes, myelocytes and metamyelocytes) > 1% indicates that a LEFT SHIFT is Present. MCH (RBC) [Entitic mass] 29.6 pg 27.0-32.0 [facility] Nucleated RBC/100 WBC (Bld) [Ratio] 0 % 0-5 [facility] MCHC Auto (RBC) [Mass/Vol]Or dered By: Jesus Kessler on 05-28-2023 MCHC (RBC) [Mass/Vol] 32.6 g/dL 32-36 [facility] No Panel InformationOrdered By: Jesus Kessler on 05-28-2023 Troponin I High Sensitivity 9 pg/mL 3.0-54.0 [facility] Comment on above: Please Note: New Mariajose t Units and Gender Specific Reference Ranges. For more information see Policy Stat Procedure [place] High Sensitivity Troponin (TNIH) and attachments. Estimated GFR (MDRD) Amer 61 mL/min >60 [facility] Comment on above: GFR Calc Estimated GFR (MDRD) Non-Af Amer 50 mL/min >60 [facility] Comment on above: Non- GFR Calc Platelets bldOrdered By: Munira Kessler on 05-28-2023 Platelets (Bld) [#/Vol] 198 10*3/uL 150-450 [facility] Serum or plasma calcium zora urement (mass/volume)Ordered By: Jesus Kessler on 05-28-2023 Calcium [Mass/Vol] 8.8 mg/dL 8.5-10.[address] [facility] Serum or plasma creatinine m easurement (mass/volume)Ordered By: Jesus Kessler on 05-28-2023 Creatinine [Mass/Vol] 1.12 mg/dL 0.55-1.02 [facility] Comment on above: The validity of the calculated GFR & GFRAA in patients over 70 years has not been determined. Clinical correlation is essential. Serum or plasma urea nitroge n measurement (mass/volume)Ordered By: Jesus Kessler on 05-28-2023 Urea nitrogen [Mass/Vol] 23 mg/dL 7-18 [facility] Thin prep Papanicolaou smear with manual screeningOrdered By: Jesus Kessler on 05-28-2023 Thin prep Papanicolaou smear with manual screening 1 5-15 [facility] Absolute lymphocyte countOrd ered By: Dr. Francis on 11-04-2022 Lymphocytes Auto (Unsp spec) [#/Vol] 1.20 10*3/uL 0.83-4.51 [facility] Basophil percentageOrdered B y: Dr. Francis on 11-04-2022 Basophils/100 WBC (Bld) 0.3 % 0-1 [facility] Chloride [Moles/Vol] 105 mmol/L 98-107 [facility] Eosinophils/100 WBC (Bld) 1.7 % 0-5 [facility] Glucose [Mass/Vol] 162 mg/dL 74-[address] [facility] Comment on above: Fasting Glucose resu lt greater than or equal to 126 mg/dL suggests DIABETES MELLITUS per A.D.A. criteria. Neutrophils (Bld) [#/Vol] 4.5 10*3/uL 2.0-7.7 [facility] Neutrophils/100 WBC (Bld) 71.4 % 47-70 [facility] Potassium [Moles/Vol] 3.6 mmol/L 3.5-5.1 [facility] Sodium [Moles/Vol] 138 mmol/L 136-[address] [facility] WBC (Bld) [#/Vol] 6.4 10*3/uL 4.4-11.[address] [facility] Blood erythrocytes count (nu mber/volume)Ordered By: Dr. Francis on 11-04-2022 RBC (Bld) [#/Vol] 4.19 10*6/uL 4.2-5.4 [facility] Blood hemoglobin measurement (mass/volume)Ordered By: Dr. Francis on 11-04-2022 Hemoglobin (Bld) [Mass/Vol] 12.6 g/dL 12.0-15.0 [facility] Blood lymphocytes/100 leukoc ytesOrdered By: Dr. Francis on 11-04-2022 Lymphocytes/100 WBC (Bld) 18.9 % 19-41 [facility] Blood monocytes/100 leukocyt esOrdered By: Dr. Francis on 11-04-2022 Monocytes/100 WBC (Bld) 7.5 % 0-10 [facility] Blood platelet mean volumeOr dered By: Dr. Francis on 11-04-2022 Platelet mean volume (Bld) [Entitic vol] 12.5 fL 6.2-12.0 [facility] Determination of erythrocyte mean corpuscular volume (MCV)Ordered By: Dr. Francis on 11-04-2022 MCV (RBC) [Entitic vol] 92.6 fL 81-99 [facility] Glucose Glucometer (dC) [M ass/Vol]Ordered By: Dr. Francis on 11-04-2022 Glucose [Mass/Vol] 130 mg/dL 74-[address] [facility] Comment on above: MANAGEMENT OF PATIEN T CARE PER NURSING PROTOCOL Hematocrit Auto (Bld) [Volum e fraction]Ordered By: Dr. Francis on 11-04-2022 Hematocrit (Bld) [Volume fraction] 38.8 % 37-47 [facility] Laboratory - Chemistry and C hemistry - challengeOrdered By: Dr. Francis on 11-04-2022 CO2 [Moles/Vol] 28.0 mmol/L 21.0-32.0 [facility] Urea nitrogen/Creatinine [Mass ratio] 22.3 mg/mg 10-20 [facility] Laboratory - Hematology and Cell countsOrdered By: Dr. Francis on 11-04-2022 Erythrocyte distribution width (RBC) [Entitic vol] 42.7 fL 35.1-43.9 [facility] Erythrocyte distribution width (RBC) [Ratio] 12.6 % 11.6-14.6 [facility] Immature granulocytes/100 WBC (Bld) 0.200 % 0.0-0.9 [facility] Comment on above: IG% - Immature Granu locytes (promyelocytes, myelocytes and metamyelocytes) > 1% indicates that a LEFT SHIFT is Present. MCH (RBC) [Entitic mass] 30.1 pg 27.0-32.0 [facility] Nucleated RBC/100 WBC (Bld) [Ratio] 0 % 0-5 [facility] MCHC Auto (RBC) [Mass/Vol]Or dered By: Dr. Francis on 11-04-2022 MCHC (RBC) [Mass/Vol] 32.5 g/dL 32-36 [facility] No Panel InformationOrdered By: Dr. Francis on 11-04-2022 Troponin I High Sensitivity 11 pg/mL 3.0-54.0 [facility] Comment on above: Please Note: New Mariajose t Units and Gender Specific Reference Ranges. For more information see Policy Stat Procedure [place] High Sensitivity Troponin (TNIH) and attachments. D-Dimer Quantitative (PE/DVT) 0.39 FEU/ug/m 0.27-0.49 [facility] Comment on above: NORMAL D-Dimer level (<0.50) indicates no DVT or PE. Estimated Creatinine Clearance Calc 57.92 ml/min [facility] Estimated GFR (MDRD) Amer 83 mL/min >60 [facility] Comment on above: GFR Calc Estimated GFR (MDRD) Non-Af Amer 69 mL/min >60 [facility] Comment on above: Non- GFR Calc Platelets bldOrdered By: Dr. Francis on 11-04-2022 Platelets (Bld) [#/Vol] 212 10*3/uL 150-450 [facility] Serum or plasma calcium zora urement (mass/volume)Ordered By: Dr. Francis on 11-04-2022 Calcium [Mass/Vol] 9.5 mg/dL 8.5-10.[address] [facility] Serum or plasma creatinine m easurement (mass/volume)Ordered By: Dr. Francis on 11-04-2022 Creatinine [Mass/Vol] 0.85 mg/dL 0.55-1.02 [facility] Comment on above: The validity of the calculated GFR & GFRAA in patients over 70 years has not been determined. Clinical correlation is essential. Serum or plasma urea nitroge n measurement (mass/volume)Ordered By: Dr. Francis on 11-04-2022 Urea nitrogen [Mass/Vol] 19 mg/dL 7-18 [facility] Thin prep Papanicolaou smear with manual screeningOrdered By: Dr. Francis on 11-04-2022 Thin prep Papanicolaou smear with manual screening 5 5-15 [facility] Absolute lymphocyte countOrd ered By: ED PROVIDER on 10-11-2022 Lymphocytes Auto (Unsp spec) [#/Vol] 0.98 10*3/uL 0.83-4.51 [facility] Basophil percentageOrdered B y: ED PROVIDER on 10-11-2022 Basophils/100 WBC (Bld) 0.3 % 0-1 [facility] Chloride [Moles/Vol] 104 mmol/L 98-107 [facility] Eosinophils/100 WBC (Bld) 1.0 % 0-5 [facility] Glucose [Mass/Vol] 202 mg/dL 74-[address] [facility] Comment on above: Glucose result great er than or equal to 200 mg/dLsuggests DIABETES MELLITUS per A.D.A. criteria. Neutrophils (Bld) [#/Vol] 5.7 10*3/uL 2.0-7.7 [facility] Neutrophils/100 WBC (Bld) 78.2 % 47-70 [facility] Potassium [Moles/Vol] 4.0 mmol/L 3.5-5.1 [facility] Sodium [Moles/Vol] 137 mmol/L 136-[address] [facility] WBC (Bld) [#/Vol] 7.2 10*3/uL 4.4-11.[address] [facility] Blood erythrocytes count (nu mber/volume)Ordered By: ED PROVIDER on 10-11-2022 RBC (Bld) [#/Vol] 4.17 10*6/uL 4.2-5.4 [facility] Blood hemoglobin measurement (mass/volume)Ordered By: ED PROVIDER on 10-11-2022 Hemoglobin (Bld) [Mass/Vol] 12.8 g/dL 12.0-15.0 [facility] Blood lymphocytes/100 leukoc ytesOrdered By: ED PROVIDER on 10-11-2022 Lymphocytes/100 WBC (Bld) 13.6 % 19-41 [facility] Blood monocytes/100 leukocyt esOrdered By: ED PROVIDER on 10-11-2022 Monocytes/100 WBC (Bld) 6.8 % 0-10 [facility] Blood platelet mean volumeOr dered By: ED PROVIDER on 10-11-2022 Platelet mean volume (Bld) [Entitic vol] 12.1 fL 6.2-12.0 [facility] Determination of erythrocyte mean corpuscular volume (MCV)Ordered By: ED PROVIDER on 10-11-2022 MCV (RBC) [Entitic vol] 92.8 fL 81-99 [facility] Hematocrit Auto (Bld) [Volum e fraction]Ordered By: ED PROVIDER on 10-11-2022 Hematocrit (Bld) [Volume fraction] 38.7 % 37-47 [facility] Laboratory - Chemistry and C hemistry - challengeOrdered By: ED PROVIDER on 10-11-2022 CO2 [Moles/Vol] 29.0 mmol/L 21.0-32.0 [facility] Urea nitrogen/Creatinine [Mass ratio] 20.6 mg/mg 10-20 [facility] Laboratory - Hematology and Cell countsOrdered By: ED PROVIDER on 10-11-2022 Erythrocyte distribution width (RBC) [Entitic vol] 43.7 fL 35.1-43.9 [facility] Erythrocyte distribution width (RBC) [Ratio] 12.9 % 11.6-14.6 [facility] Immature granulocytes/100 WBC (Bld) 0.100 % 0.0-0.9 [facility] Comment on above: IG% - Immature Granu locytes (promyelocytes, myelocytes and metamyelocytes) > 1% indicates that a LEFT SHIFT is Present. MCH (RBC) [Entitic mass] 30.7 pg 27.0-32.0 [facility] Nucleated RBC/100 WBC (Bld) [Ratio] 0 % 0-5 [facility] MCHC Auto (RBC) [Mass/Vol]Or dered By: ED PROVIDER on 10-11-2022 MCHC (RBC) [Mass/Vol] 33.1 g/dL 32-36 [facility] No Panel InformationOrdered By: ED PROVIDER on 10-11-2022 Troponin I High Sensitivity 10 pg/mL 3.0-54.0 [facility] Comment on above: Please Note: New Mariajose t Units and Gender Specific Reference Ranges. For more information see Policy Stat Procedure [place] High Sensitivity Troponin (TNIH) and attachments. Estimated Creatinine Clearance Calc 49.24 ml/min [facility] Estimated GFR (MDRD) Amer 93 mL/min >60 [facility] Comment on above: GFR Calc Estimated GFR (MDRD) Non-Af Amer 76 mL/min >60 [facility] Comment on above: Non- GFR Calc Platelets bldOrdered By: ED PROVIDER on 10-11-2022 Platelets (Bld) [#/Vol] 207 10*3/uL 150-450 [facility] Serum or plasma calcium zora urement (mass/volume)Ordered By: ED PROVIDER on 10-11-2022 Calcium [Mass/Vol] 9.1 mg/dL 8.5-10.[address] [facility] Serum or plasma creatinine m easurement (mass/volume)Ordered By: ED PROVIDER on 10-11-2022 Creatinine [Mass/Vol] 0.78 mg/dL 0.55-1.02 [facility] Comment on above: The validity of the calculated GFR & GFRAA in patients over 70 years has not been determined. Clinical correlation is essential. Serum or plasma urea nitroge n measurement (mass/volume)Ordered By: ED PROVIDER on 10-11-2022 Urea nitrogen [Mass/Vol] 16 mg/dL 7-18 [facility] Thin prep Papanicolaou smear with manual screeningOrdered By: ED PROVIDER on 10-11-2022 Thin prep Papanicolaou smear with manual screening 4 5-15 [facility] Absolute lymphocyte countOrd ered By: Dr. Juan on 10-01-2022 Lymphocytes Auto (Unsp spec) [#/Vol] 1.06 10*3/uL 0.83-4.51 [facility] Basophil percentageOrdered B y: Dr. Juan on 10-01-2022 Basophils/100 WBC (Bld) 0.4 % 0-1 [facility] Chloride [Moles/Vol] 106 mmol/L 98-107 [facility] Eosinophils/100 WBC (Bld) 1.4 % 0-5 [facility] Glucose [Mass/Vol] 177 mg/dL 74-[address] [facility] Comment on above: Fasting Glucose resu lt greater than or equal to 126 mg/dL suggests DIABETES MELLITUS per A.D.A. criteria. Neutrophils (Bld) [#/Vol] 4.1 10*3/uL 2.0-7.7 [facility] Neutrophils/100 WBC (Bld) 71.6 % 47-70 [facility] Potassium [Moles/Vol] 4.0 mmol/L 3.5-5.1 [facility] Sodium [Moles/Vol] 140 mmol/L 136-[address] [facility] WBC (Bld) [#/Vol] 5.7 10*3/uL 4.4-11.[address] [facility] Blood erythrocytes count (nu mber/volume)Ordered By: Dr. Juan on 10-01-2022 RBC (Bld) [#/Vol] 4.28 10*6/uL 4.2-5.4 [facility] Blood hemoglobin measurement (mass/volume)Ordered By: Dr. Juan on 10-01-2022 Hemoglobin (Bld) [Mass/Vol] 12.9 g/dL 12.0-15.0 [facility] Blood lymphocytes/100 leukoc ytesOrdered By: Dr. Juan on 10-01-2022 Lymphocytes/100 WBC (Bld) 18.8 % 19-41 [facility] Blood monocytes/100 leukocyt esOrdered By: Dr. Juan on 10-01-2022 Monocytes/100 WBC (Bld) 7.8 % 0-10 [facility] Blood platelet mean volumeOr dered By: Dr. Juan on 10-01-2022 Platelet mean volume (Bld) [Entitic vol] 12.0 fL 6.2-12.0 [facility] Determination of erythrocyte mean corpuscular volume (MCV)Ordered By: Dr. Juan on 10-01-2022 MCV (RBC) [Entitic vol] 95.1 fL 81-99 [facility] Hematocrit Auto (Bld) [Volum e fraction]Ordered By: Dr. Juan on 10-01-2022 Hematocrit (Bld) [Volume fraction] 40.7 % 37-47 [facility] Laboratory - Chemistry and C hemistry - challengeOrdered By: Dr. Juan on 03-17-2023 CO2 [Moles/Vol] 28.0 mmol/L 21.0-32.0 [facility] Urea nitrogen/Creatinine [Mass ratio] 25.3 mg/mg 10-20 [facility] Laboratory - Hematology and Cell countsOrdered By: Dr. Juan on 10-01-2022 Erythrocyte distribution width (RBC) [Entitic vol] 46.5 fL 35.1-43.9 [facility] Erythrocyte distribution width (RBC) [Ratio] 13.3 % 11.6-14.6 [facility] Immature granulocytes/100 WBC (Bld) 0.000 % 0.0-0.9 [facility] Comment on above: IG% - Immature Granu locytes (promyelocytes, myelocytes and metamyelocytes) > 1% indicates that a LEFT SHIFT is Present. MCH (RBC) [Entitic mass] 30.1 pg 27.0-32.0 [facility] Nucleated RBC/100 WBC (Bld) [Ratio] 0 % 0-5 [facility] MCHC Auto (RBC) [Mass/Vol]Or dered By: Dr. Juan on 10-01-2022 MCHC (RBC) [Mass/Vol] 31.7 g/dL 32-36 [facility] No Panel InformationOrdered By: Dr. Juan on 10-01-2022 Estimated Creatinine Clearance Calc 49.24 ml/min [facility] Estimated GFR (MDRD) Amer 91 mL/min >60 [facility] Comment on above: GFR Calc Estimated GFR (MDRD) Non-Af Amer 75 mL/min >60 [facility] Comment on above: Non- GFR Calc Troponin I High Sensitivity 9 pg/mL 3.0-54.0 [facility] Comment on above: Please Note: New Mariajose t Units and Gender Specific Reference Ranges. For more information see Policy Stat Procedure [place] High Sensitivity Troponin (TNIH) and attachments. Platelets bldOrdered By: Dr. Juan on 10-01-2022 Platelets (Bld) [#/Vol] 201 10*3/uL 150-450 [facility] Serum or plasma calcium zora urement (mass/volume)Ordered By: Dr. Juan on 10-01-2022 Calcium [Mass/Vol] 9.4 mg/dL 8.5-10.[address] [facility] Serum or plasma creatinine m easurement (mass/volume)Ordered By: Dr. Juan on 10-01-2022 Creatinine [Mass/Vol] 0.79 mg/dL 0.55-1.02 [facility] Comment on above: The validity of the calculated GFR & GFRAA in patients over 70 years has not been determined. Clinical correlation is essential. Serum or plasma urea nitroge n measurement (mass/volume)Ordered By: Dr. Juan on 10-01-2022 Urea nitrogen [Mass/Vol] 20 mg/dL 7-18 [facility] Thin prep Papanicolaou smear with manual screeningOrdered By: Dr. Juan on 10-01-2022 Thin prep Papanicolaou smear with manual screening 6 5- [facility] Culture, urineOrdered By: Dr Altaf Kessler on 08-05-2022 Bacteria identified Cx Nom (U) Enterococcus avium [facility] Bacteria identified Cx Nom (U) Enterococcus faecalis [facility] Bacteria identified Cx Nom (U) Staphylococcus lentus [facility] Absolute lymphocyte countOrd ered By: Dr. Herring on 08-02-2022 Lymphocytes Auto (Unsp spec) [#/Vol] 0.56 10*3/uL 0.83-4.51 [facility] Basophil percentageOrdered B y: Dr. Herring on 08-02-2022 Basophil percentage 2.4 mg/dL 2.5-4.9 [facility] Basophils/100 WBC (Bld) 0.2 % 0-1 [facility] Chloride [Moles/Vol] 101 mmol/L 98-107 [facility] Eosinophils/100 WBC (Bld) 0.4 % 0-5 [facility] Glucose [Mass/Vol] 217 mg/dL 74-[address] [facility] Comment on above: Glucose result great er than or equal to 200 mg/dLsuggests DIABETES MELLITUS per A.D.A. criteria. Neutrophils (Bld) [#/Vol] 4.0 10*3/uL 2.0-7.7 [facility] Neutrophils/100 WBC (Bld) 79.8 % 47-70 [facility] Potassium [Moles/Vol] 3.7 mmol/L 3.5-5.1 [facility] Sodium [Moles/Vol] 137 mmol/L 136-[address] [facility] WBC (Bld) [#/Vol] 5.1 10*3/uL 4.4-11.[address] [facility] Blood erythrocytes count (nu mber/volume)Ordered By: Dr. Herring on 08-02-2022 RBC (Bld) [#/Vol] 3.95 10*6/uL 4.2-5.4 [facility] Blood hemoglobin measurement (mass/volume)Ordered By: Dr. Herring on 08-02-2022 Hemoglobin (Bld) [Mass/Vol] 11.6 g/dL 12.0-15.0 [facility] Blood lymphocytes/100 leukoc ytesOrdered By: Dr. Herring on 08-02-2022 Lymphocytes/100 WBC (Bld) 11.1 % 19-41 [facility] Blood monocytes/100 leukocyt esOrdered By: Dr. Herring on 08-02-2022 Monocytes/100 WBC (Bld) 8.1 % 0-10 [facility] Blood platelet mean volumeOr dered By: Dr. Herring on 08-02-2022 Platelet mean volume (Bld) [Entitic vol] 12.6 fL 6.2-12.0 [facility] Determination of erythrocyte mean corpuscular volume (MCV)Ordered By: Dr. Herring on 08-02-2022 MCV (RBC) [Entitic vol] 92.2 fL 81-99 [facility] Glucose Glucometer (BldC) [M ass/Vol]Ordered By: Dr. Escalera on 08-02-2022 Glucose [Mass/Vol] 286 mg/dL 74-[address] [facility] Comment on above: MANAGEMENT OF PATIEN T CARE PER NURSING PROTOCOL Hematocrit Auto (Bld) [Volum e fraction]Ordered By: Dr. Herring on 08-02-2022 Hematocrit (Bld) [Volume fraction] 36.4 % 37-47 [facility] Laboratory - Chemistry and C hemistry - challengeOrdered By: Dr. Herring on 08-02-2022 CO2 [Moles/Vol] 26.0 mmol/L 21.0-32.0 [facility] Magnesium [Mass/Vol] 1.7 mg/dL 1.6-2.6 [facility] Urea nitrogen/Creatinine [Mass ratio] 13.5 mg/mg 10-20 [facility] Laboratory - Hematology and Cell countsOrdered By: Dr. Herring on 08-02-2022 Erythrocyte distribution width (RBC) [Entitic vol] 43.3 fL 35.1-43.9 [facility] Erythrocyte distribution width (RBC) [Ratio] 12.9 % 11.6-14.6 [facility] Immature granulocytes/100 WBC (Bld) 0.400 % 0.0-0.9 [facility] Comment on above: IG% - Immature Granu locytes (promyelocytes, myelocytes and metamyelocytes) > 1% indicates that a LEFT SHIFT is Present. MCH (RBC) [Entitic mass] 29.4 pg 27.0-32.0 [facility] Nucleated RBC/100 WBC (Bld) [Ratio] 0.6 % 0-5 [facility] MCHC Auto (RBC) [Mass/Vol]Or dered By: Dr. Herring on 08-02-2022 MCHC (RBC) [Mass/Vol] 31.9 g/dL 32-36 [facility] No Panel InformationOrdered By: Dr. Herring on 08-02-2022 Estimated Creatinine Clearance Calc 49.24 ml/min [facility] Estimated GFR (MDRD) Amer 111 mL/min >60 [facility] Comment on above: GFR Calc Estimated GFR (MDRD) Non-Af Amer 92 mL/min >60 [facility] Comment on above: Non- GFR Calc Platelets bldOrdered By: Dr. Herring on 08-02-2022 Platelets (Bld) [#/Vol] 158 10*3/uL 150-450 [facility] Serum or plasma calcium zora urement (mass/volume)Ordered By: Dr. Herring on 08-02-2022 Calcium [Mass/Vol] 8.0 mg/dL 8.5-10.[address] [facility] Serum or plasma creatinine m easurement (mass/volume)Ordered By: Dr. Herring on 08-02-2022 Creatinine [Mass/Vol] 0.66 mg/dL 0.55-1.02 [facility] Comment on above: The validity of the calculated GFR & GFRAA in patients over 70 years has not been determined. Clinical correlation is essential. Serum or plasma urea nitroge n measurement (mass/volume)Ordered By: Dr. Herring on 08-02-2022 Urea nitrogen [Mass/Vol] 9 mg/dL 7-18 [facility] Thin prep Papanicolaou smear with manual screeningOrdered By: Dr. Herring on 08-02-2022 Thin prep Papanicolaou smear with manual screening 10 5-15 [facility] Absolute lymphocyte counton 07-31-2022 Lymphocytes Auto (Unsp spec) [#/Vol] 0.65 10*3/uL 0.83-4.51 [facility] Work Phone: Amorphous sediment detection in urine sediment by light microscopyOrdered By: ED PROVIDER on 07-31-2022 Amorphous sediment LM Ql (Urine sed) 1+ URATE [facility] Basophil percentageOrdered B y: ED PROVIDER on 07-31-2022 Basophil percentage 5-10 SEEN /hpf 0-5 [facility] Bilirubin [Mass/Vol] 1.30 mg/dL 0.20-1.00 [facility] Comment on above: For patients on eltr ombopag therapy, use of Dimension [place] TBIL is not recommended. Protein [Mass/Vol] 7.0 g/dL 6.4-8.[address] [facility] Basophil percentageOrdered B y: Dr. Kessler on 07-31-2022 Lactate [Moles/Vol] 1.5 mmol/L 0.4-2.0 [facility] Basophil percentageon 2022 Basophils/100 WBC (Bld) 0.1 % 0-1 [facility] Work Phone: Chloride [Moles/Vol] 100 mmol/L 98-107 [facility] Work Phone: Eosinophils/100 WBC (Bld) 0.0 % 0-5 [facility] Work Phone: Glucose [Mass/Vol] 113 mg/dL 74-[address] [facility] Work Phone: Comment on above: Fasting Glucose resu lt from 100 to 125 mg/dL suggests IMPAIRED HOMEOSTASIS per A.D.A. criteria. Neutrophils (Bld) [#/Vol] 6.5 10*3/uL 2.0-7.7 [facility] Work Phone: Neutrophils/100 WBC (Bld) 86.7 % 47-70 [facility] Work Phone: [phone] Potassium [Moles/Vol] 3.9 mmol/L 3.5-5.1 [facility]: Sodium [Moles/Vol] 135 mmol/L 136-[address] [facility] Work Phone: WBC (Bld) [#/Vol] 7.5 10*3/uL 4.4-11.[address] [facility] Work Phone: Bilirubin Test strip Ql (U)O rdered By: ED PROVIDER on 07-31-2022 Bilirubin Ql (U) 1 mg/dL Negative [facility] Comment on above: COLOR OF URINE MAY A FFECT DIPSTICK RESULTS. Blood erythrocytes count (nu mber/volume)on 07-31-2022 RBC (Bld) [#/Vol] 4.69 10*6/uL 4.2-5.4 [facility] Work Phone: Blood hemoglobin measurement (mass/volume)on 07-31-2022 Hemoglobin (Bld) [Mass/Vol] 13.8 g/dL 12.0-15.0 [facility] Work Phone: [phone] Blood lymphocytes/100 leukoc yteson 07-31-2022 Lymphocytes/100 WBC (Bld) 8.7 % 19-41 [facility] Work Phone: Blood monocytes/100 leukocyt eson 07-31-2022 Monocytes/100 WBC (Bld) 4.4 % 0-10 [facility] Work Phone: Blood platelet mean volumeon 07-31-2022 Platelet mean volume (Bld) [Entitic vol] 12.3 fL 6.2-12.0 [facility] Work Phone: Determination of erythrocyte mean corpuscular volume (MCV)on 07-31-2022 MCV (RBC) [Entitic vol] 91.5 fL 81-99 [facility] Work Phone: Glucose Glucometer (BldC) [M ass/Vol]on 07-31-2022 Glucose [Mass/Vol] 121 mg/dL 74-[address] [facility] Work Phone: Comment on above: MANAGEMENT OF PATIEN T CARE PER NURSING PROTOCOL Hematocrit Auto (Bld) [Volum e fraction]on 07-31-2022 Hematocrit (Bld) [Volume fraction] 42.9 % 37-47 [facility] Work Phone: Influenza virus A and B and SARS-CoV-2 (COVID-19) Ag panel - Upper respiratory specimOrdered By: Dr. Kessler on 07-31-2022 SARS-CoV-2 & FLU Antigen (Rapid) SARS-CoV-2 (COVID 19) [facility] Ketones Test strip Ql (U)Ord ered By: ED PROVIDER on 07-31-2022 Ketones Ql (U) 15 mg/dl Negative [facility] Laboratory - Chemistry and C hemistry - challengeOrdered By: ED PROVIDER on 07-31-2022 ALP [Catalytic activity/Vol] 71 U/L 45-117 [facility] ALT [Catalytic activity/Vol] 26 U/L 13-56 [facility] Globulin (S) [Mass/Vol] 4.2 g/dL 2.2-4.2 [facility] Laboratory - Chemistry and C hemistry - challengeon 07-31-2022 CO2 [Moles/Vol] 29.0 mmol/L 21.0-32.0 [facility] Work Phone: Urea nitrogen/Creatinine [Mass ratio] 17.2 mg/mg 10-20 [facility] Work Phone: Laboratory - Hematology and Cell countson 07-31-2022 Erythrocyte distribution width (RBC) [Entitic vol] 41.3 fL 35.1-43.9 [facility] Work Phone: Erythrocyte distribution width (RBC) [Ratio] 12.7 % 11.6-14.6 [facility] Work Phone: Immature granulocytes/100 WBC (Bld) 0.100 % 0.0-0.9 [facility] Work Phone: Comment on above: IG% - Immature Granu locytes (promyelocytes, myelocytes and metamyelocytes) > 1% indicates that a LEFT SHIFT is Present. MCH (RBC) [Entitic mass] 29.4 pg 27.0-32.0 [facility] Work Phone: Nucleated RBC/100 WBC (Bld) [Ratio] 0 % 0-5 [facility] Work Phone: MCHC Auto (RBC) [Mass/Vol]on 07-31-2022 MCHC (RBC) [Mass/Vol] 32.2 g/dL 32-36 [facility] Work Phone: Mucus LM Ql (Urine sed)Order ed By: ED PROVIDER on 07-31-2022 Mucus Ql (Urine sed) 0 SEEN /hpf [facility] Nitrite Test strip Ql (U)Ord ered By: ED PROVIDER on 07-31-2022 Nitrite Ql (U) Negative Negative [facility] No Panel Informationon 07-31 Estimated Creatinine Clearance Calc 49.73 ml/min [facility] Work Phone: Estimated GFR (MDRD) Amer 70 mL/min >60 [facility] Work Phone: Comment on above: GFR Calc Estimated GFR (MDRD) Non-Af Amer 58 mL/min >60 [facility] Work Phone: Comment on above: Non- GFR Calc Platelets bldon 07-31-2022 Platelets (Bld) [#/Vol] 187 10*3/uL 150-450 [facility] Work Phone: Protein Test strip Ql (U)Ord ered By: ED PROVIDER on 07-31-2022 Protein Ql (U) 15 mg/dl Negative [facility] Serum or plasma albumin zora urement (mass/volume)Ordered By: ED PROVIDER on 07-31-2022 Albumin [Mass/Vol] 2.8 g/dL 3.2-5.[address] [facility] Serum or plasma albumin/glob ulin mass ratioOrdered By: ED PROVIDER on 07-31-2022 Albumin/Globulin [Mass ratio] 0.7 {ratio} 0.9-2.4 [facility] Serum or plasma calcium zora urement (mass/volume)on 07-31-2022 Calcium [Mass/Vol] 8.5 mg/dL 8.5-10.[address] [facility] Work Phone: Serum or plasma creatinine m easurement (mass/volume)on 07-31-2022 Creatinine [Mass/Vol] 0.99 mg/dL 0.55-1.02 [facility] Work Phone: Comment on above: The validity of the calculated GFR & GFRAA in patients over 70 years has not been determined. Clinical correlation is essential. Serum or plasma urea nitroge n measurement (mass/volume)on 07-31-2022 Urea nitrogen [Mass/Vol] 17 mg/dL 7-18 [facility] Work Phone: Squamous epithelial cells de tection in urine sediment by light microscopyOrdered By: ED PROVIDER on 07-31-2022 Epithelial cells.squamous LM Ql (Urine sed) 0-5 SEEN /hpf 5-10 [facility] Thin prep Papanicolaou smear with manual screeningOrdered By: ED PROVIDER on 07-31-2022 Thin prep Papanicolaou smear with manual screening 24 U/L 15-37 [facility] Thin prep Papanicolaou smear with manual screeningon 07-31-2022 Thin prep Papanicolaou smear with manual screening 6 5-15 [facility] Work Phone: Urine blood detectionOrdered By: ED PROVIDER on 07-31-2022 RBC Ql (U) Negative Negative [facility] RBC Ql (U) 0 SEEN /hpf 0-5 [facility] Urine clarityOrdered By: ED PROVIDER on 07-31-2022 Clarity (U) Sl. Cloudy Clear [facility] Urine color determinationOrd ered By: ED PROVIDER on 07-31-2022 Color (U) Yellow Yellow [facility] Urine glucose detectionOrder ed By: ED PROVIDER on 07-31-2022 Glucose Ql (U) Normal mg/dl Normal [facility] Urine leukocyte esterase det ection by dipstickOrdered By: ED PROVIDER on 07-31-2022 Leukocyte esterase Test strip Ql (U) 100 /ul Negative [facility] Urine pHOrdered By: ED PROVI KAYE on 07-31-2022 pH (U) 6.0 [pH] 5.0 - 8.0 [facility] Urine sediment bacteria coun t by microscopy (number/high power field)Ordered By: ED PROVIDER on 07-31-2022 Bacteria LM.HPF (Urine sed) [#/Area] 0 /[HPF] None Seen [facility] Urine specific gravity measu rementOrdered By: ED PROVIDER on 07-31-2022 Specific gravity (U) [Rel density] 1.015 1.002-1.030 [facility] Urobilinogen Auto test strip Ql (U)Ordered By: ED PROVIDER on 07-31-2022 Urobilinogen Ql (U) 4 mg/dl Normal [facility] Absolute lymphocyte countOrd ered By: Dr. Garcia on 07-24-2022 Lymphocytes Auto (Unsp spec) [#/Vol] 0.75 10*3/uL 0.83-4.51 [facility] Basophil percentageOrdered B y: Dr. Garcia on 07-24-2022 Basophils/100 WBC (Bld) 0.1 % 0-1 [facility] Bilirubin [Mass/Vol] 0.60 mg/dL 0.20-1.00 [facility] Comment on above: For patients on eltr ombopag therapy, use of Dimension [place] TBIL is not recommended. Chloride [Moles/Vol] 103 mmol/L 98-107 [facility] Eosinophils/100 WBC (Bld) 0.0 % 0-5 [facility] Glucose [Mass/Vol] 164 mg/dL 74-[address] [facility] Comment on above: Fasting Glucose resu lt greater than or equal to 126 mg/dL suggests DIABETES MELLITUS per A.D.A. criteria. Neutrophils (Bld) [#/Vol] 7.0 10*3/uL 2.0-7.7 [facility] Neutrophils/100 WBC (Bld) 83.8 % 47-70 [facility] Potassium [Moles/Vol] 3.6 mmol/L 3.5-5.1 [facility] Protein [Mass/Vol] 5.9 g/dL 6.4-8.[address] [facility] Sodium [Moles/Vol] 137 mmol/L 136-[address] [facility] WBC (Bld) [#/Vol] 8.3 10*3/uL 4.4-11.[address] [facility] Blood erythrocytes count (nu mber/volume)Ordered By: Dr. Garcia on 07-24-2022 RBC (Bld) [#/Vol] 4.26 10*6/uL 4.2-5.4 [facility] Blood hemoglobin measurement (mass/volume)Ordered By: Dr. Garcia on 07-24-2022 Hemoglobin (Bld) [Mass/Vol] 13.1 g/dL 12.0-15.0 [facility] Blood lymphocytes/100 leukoc ytesOrdered By: Dr. Garcia on 07-24-2022 Lymphocytes/100 WBC (Bld) 9.0 % 19-41 [facility] Blood monocytes/100 leukocyt esOrdered By: Dr. Garcia on 07-24-2022 Monocytes/100 WBC (Bld) 6.7 % 0-10 [facility] Blood platelet mean volumeOr dered By: Dr. Garcia on 07-24-2022 Platelet mean volume (Bld) [Entitic vol] 11.8 fL 6.2-12.0 [facility] Determination of erythrocyte mean corpuscular volume (MCV)Ordered By: Dr. Garcia on 07-24-2022 MCV (RBC) [Entitic vol] 94.6 fL 81-99 [facility] Glucose Glucometer (BldC) [M ass/Vol]Ordered By: Dr. Garcia on 07-24-2022 Glucose [Mass/Vol] 64 mg/dL 74-[address] [facility] Comment on above: MANAGEMENT OF PATIEN T CARE PER NURSING PROTOCOL Glucose Glucometer (BldC) [M ass/Vol]on 07-24-2022 Glucose [Mass/Vol] 135 mg/dL 74-[address] [facility] Work Phone: Comment on above: MANAGEMENT OF PATIEN T CARE PER NURSING PROTOCOL Hematocrit Auto (Bld) [Volum e fraction]Ordered By: Dr. Garcia on 07-24-2022 Hematocrit (Bld) [Volume fraction] 40.3 % 37-47 [facility] Laboratory - Chemistry and C hemistry - challengeOrdered By: Dr. Garcia on 07-24-2022 ALP [Catalytic activity/Vol] 63 U/L 45-117 [facility] ALT [Catalytic activity/Vol] 35 U/L 13-56 [facility] CO2 [Moles/Vol] 26.0 mmol/L 21.0-32.0 [facility] Globulin (S) [Mass/Vol] 3.8 g/dL 2.2-4.2 [facility] Urea nitrogen/Creatinine [Mass ratio] 23.8 mg/mg 10-20 [facility] Laboratory - Hematology and Cell countsOrdered By: Dr. Garcia on 07-24-2022 Erythrocyte distribution width (RBC) [Entitic vol] 44.2 fL 35.1-43.9 [facility] Erythrocyte distribution width (RBC) [Ratio] 12.8 % 11.6-14.6 [facility] Immature granulocytes/100 WBC (Bld) 0.400 % 0.0-0.9 [facility] Comment on above: IG% - Immature Granu locytes (promyelocytes, myelocytes and metamyelocytes) > 1% indicates that a LEFT SHIFT is Present. MCH (RBC) [Entitic mass] 30.8 pg 27.0-32.0 [facility] Nucleated RBC/100 WBC (Bld) [Ratio] 0 % 0-5 [facility] MCHC Auto (RBC) [Mass/Vol]Or dered By: Dr. Garcia on 07-24-2022 MCHC (RBC) [Mass/Vol] 32.5 g/dL 32-36 [facility] No Panel InformationOrdered By: Dr. Garcia on 07-24-2022 Estimated Creatinine Clearance Calc 59.54 ml/min [facility] Estimated GFR (MDRD) Amer 84 mL/min >60 [facility] Comment on above: GFR Calc Estimated GFR (MDRD) Non-Af Amer 70 mL/min >60 [facility] Comment on above: Non- GFR Calc Platelets bldOrdered By: Dr. Garcia on 07-24-2022 Platelets (Bld) [#/Vol] 243 10*3/uL 150-450 [facility] Serum or plasma albumin zora urement (mass/volume)Ordered By: Dr. Garcia on 07-24-2022 Albumin [Mass/Vol] 2.1 g/dL 3.2-5.[address] [facility] Serum or plasma albumin/glob ulin mass ratioOrdered By: Dr. Garcia on 07-24-2022 Albumin/Globulin [Mass ratio] 0.6 {ratio} 0.9-2.4 [facility] Serum or plasma calcium zora urement (mass/volume)Ordered By: Dr. Garcia on 07-24-2022 Calcium [Mass/Vol] 8.8 mg/dL 8.5-10.[address] [facility] Serum or plasma creatinine m easurement (mass/volume)Ordered By: Dr. Garcia on 07-24-2022 Creatinine [Mass/Vol] 0.84 mg/dL 0.55-1.02 [facility] Comment on above: The validity of the calculated GFR & GFRAA in patients over 70 years has not been determined. Clinical correlation is essential. Serum or plasma urea nitroge n measurement (mass/volume)Ordered By: Dr. Garcia on 07-24-2022 Urea nitrogen [Mass/Vol] 20 mg/dL 7-18 [facility] Thin prep Papanicolaou smear with manual screeningOrdered By: Dr. Garcia on 07-24-2022 Thin prep Papanicolaou smear with manual screening 26 U/L 15-37 [facility] Thin prep Papanicolaou smear with manual screening 8 5-15 [facility] Blood manual differential co mment interpretation (narrative result)Ordered By: Dr. Garcia on 07-23-2022 Manual differential comment Ferny (Bld) [Interp] SCANNED [facility] Comment on above: LYMPHOPENIA NOTED Laboratory - Microbiology an d Antimicrobial susceptibilityOrdered By: Dr. Castillo on 07-23-2022 Bacteria identified Cx Nom (Bld) No growth in 5 days. [facility] Bacteria identified Cx Nom (Bld) No growth in 5 days. [facility] Laboratory - Microbiology an d Antimicrobial susceptibilityOrdered By: Dr. Garcia on 07-22-2022 SARS-CoV-2 (COVID-19) RNA RAYMOND+probe Ql (Unsp spec) Detected Not Detect [facility] Comment on above: Normal Reference Ran ge: [...] 07-22-2022 SARS-CoV-2 Antigen (Rapid) SARS-CoV-2 (COVID 19) [facility] Assessment of wrist artery p atency prior to arterial punctureOrdered By: Dr. Castillo on 07-18-2022 Arterial patency Wrist artery --pre arterial puncture Positive [facility] Base excessOrdered By: Dr. Juanita pelaez on 07-18-2022 Base excess Calc (BldV) [Moles/Vol] 8 mmol/L -2-2 [facility] Basophil percentageOrdered B y: Dr. Castillo on 07-18-2022 Basophil percentage 32.4 mmol/L 22-26 [facility] Basophils/100 WBC (Bld) 94 % 95-99 [facility] CO2 (BldA) [Partial pressure ]Ordered By: Dr. Castillo on 07-18-2022 CO2 (Bld) [Partial pressure] 47.5 mm[Hg] 35-45 [facility] No Panel InformationOrdered By: Dr. Sandoval on 07-18-2022 Methicillin-Resist S.aureus DNA PCR Negative Negative [facility] Streptococcus pneumoniae Antigen (M [facility] No Panel InformationOrdered By: Dr. Castillo on 07-18-2022 Blood Gas Liter Flow 4.0 /min [facility] Blood Gas Sample Site R Radial [facility] Blood Gas Specimen Type ART [facility] Blood Gas Total CO2 34 mmol/L [facility] Oxygen Delivery Device Cannula [place] Oxygen (BldA) [Partial press ure]Ordered By: Dr. Castillo on 07-18-2022 Oxygen (Bld) [Partial pressure] 68 mmHG 75-100 [facility] pH measurementOrdered By: Dr lAtaf Castillo on 07-18-2022 pH (Unsp spec) 7.44 [pH] 7.35-7.45 [facility] Basophil percentageOrdered B y: Dr. Castillo on 07-17-2022 Lactate [Moles/Vol] 1.2 mmol/L 0.4-2.0 [facility] Culture, urineOrdered By: Dr Altaf Torres on 07-15-2022 Bacteria identified Cx Nom (U) Positive [facility] Glucose Glucometer (dC) [M ass/Vol]Ordered By: Dr. Escobedo on 07-14-2022 Glucose [Mass/Vol] 185 mg/dL 74-[address] [facility] Comment on above: MANAGEMENT OF PATIEN T CARE PER NURSING PROTOCOL Basophil percentageOrdered B y: Dr. Torres on 07-13-2022 Basophil percentage 5-10 SEEN /hpf 0-5 [facility] Bilirubin Test strip Ql (U)O rdered By: Dr. Torres on 07-13-2022 Bilirubin Ql (U) Negative Negative [facility] Ketones Test strip Ql (U)Ord ered By: Dr. Torres on 07-13-2022 Ketones Ql (U) 5 mg/dl Negative [facility] Microbial respiratory cultur eOrdered By: Dr. Herring on 07-13-2022 Bacteria identified Respiratory culture Nom (Unsp spec) or Staphylococcus aureus isolated. [facility] Mucus LM Ql (Urine sed)Order ed By: Dr. Torres on 07-13-2022 Mucus Ql (Urine sed) 0 SEEN /hpf [facility] Nitrite Test strip Ql (U)Ord ered By: Dr. Torres on 07-13-2022 Nitrite Ql (U) Negative Negative [facility] Protein Test strip Ql (U)Ord ered By: Dr. Torres on 07-13-2022 Protein Ql (U) 15 mg/dl Negative [facility] Squamous epithelial cells de tection in urine sediment by light microscopyOrdered By: Dr. Torres on 07-13-2022 Epithelial cells.squamous LM Ql (Urine sed) 0 SEEN /hpf 5-10 [facility] Urine blood detectionOrdered By: Dr. Torres on 07-13-2022 RBC Ql (U) Negative Negative [facility] RBC Ql (U) 0 SEEN /hpf 0-5 [facility] Urine clarityOrdered By: Dr. Torres on 07-13-2022 Clarity (U) Clear Clear [facility] Urine color determinationOrd ered By: Dr. Torres on 07-13-2022 Color (U) Yellow Yellow [facility] Urine glucose detectionOrder ed By: Dr. Torres on 07-13-2022 Glucose Ql (U) Normal mg/dl Normal [facility] Urine leukocyte esterase det ection by dipstickOrdered By: Dr. Torres on 07-13-2022 Leukocyte esterase Test strip Ql (U) 100 /ul Negative [facility] Urine pHOrdered By: Dr. Fela rabago on 07-13-2022 pH (U) 6.0 [pH] 5.0 - 8.0 [facility] Urine sediment bacteria coun t by microscopy (number/high power field)Ordered By: Dr. Torres on 07-13-2022 Bacteria LM.HPF (Urine sed) [#/Area] 1 /[HPF] None Seen [facility] Urine specific gravity measu rementOrdered By: Dr. Torres on 07-13-2022 Specific gravity (U) [Rel density] 1.020 1.002-1.030 [facility] Urobilinogen Auto test strip Ql (U)Ordered By: Dr. Torres on 07-13-2022 Urobilinogen Ql (U) Normal mg/dl Normal [facility] Gram stain for investigation of transfusion reactionOrdered By: Dr. Herring on 07-12-2022 Microscopic observation Gram stain Nom (Unsp spec) [facility] Absolute lymphocyte countOrd ered By: Dr. Herring on 07-11-2022 Lymphocytes Auto (Unsp spec) [#/Vol] 0.31 10*3/uL 0.83-4.51 [facility] Basophil percentageOrdered B y: Dr. Herring on 07-11-2022 Basophil percentage 2.7 mg/dL 2.5-4.9 [facility] Basophils/100 WBC (Bld) 0.0 % 0-1 [facility] Chloride [Moles/Vol] 103 mmol/L 98-107 [facility] Eosinophils/100 WBC (Bld) 0.0 % 0-5 [facility] Glucose [Mass/Vol] 418 mg/dL 74-[address] [facility] Comment on above: Glucose result great er than or equal to 200 mg/dLsuggests DIABETES MELLITUS per A.D.A. criteria. Neutrophils (Bld) [#/Vol] 3.6 10*3/uL 2.0-7.7 [facility] Neutrophils/100 WBC (Bld) 88.0 % 47-70 [facility] Potassium [Moles/Vol] 3.9 mmol/L 3.5-5.1 [facility] Sodium [Moles/Vol] 136 mmol/L 136-[address] [facility] WBC (Bld) [#/Vol] 4.1 10*3/uL 4.4-11.[address] [facility] Blood erythrocytes count (nu mber/volume)Ordered By: Dr. Herring on 07-11-2022 RBC (Bld) [#/Vol] 4.11 10*6/uL 4.2-5.4 [facility] Blood hemoglobin measurement (mass/volume)Ordered By: Dr. Herring on 07-11-2022 Hemoglobin (Bld) [Mass/Vol] 12.0 g/dL 12.0-15.0 [facility] Blood lymphocytes/100 leukoc ytesOrdered By: Dr. Herring on 07-11-2022 Lymphocytes/100 WBC (Bld) 7.6 % 19-41 [facility] Blood monocytes/100 leukocyt esOrdered By: Dr. Herring on 07-11-2022 Monocytes/100 WBC (Bld) 4.2 % 0-10 [facility] Blood platelet mean volumeOr dered By: Dr. Herring on 07-11-2022 Platelet mean volume (Bld) [Entitic vol] 11.7 fL 6.2-12.0 [facility] Determination of erythrocyte mean corpuscular volume (MCV)Ordered By: Dr. Herring on 07-11-2022 MCV (RBC) [Entitic vol] 92.7 fL 81-99 [facility] Hematocrit Auto (Bld) [Volum e fraction]Ordered By: Dr. Herring on 07-11-2022 Hematocrit (Bld) [Volume fraction] 38.1 % 37-47 [facility] Laboratory - Chemistry and C hemistry - challengeOrdered By: Dr. Herring on 07-11-2022 CO2 [Moles/Vol] 26.0 mmol/L 21.0-32.0 [facility] Magnesium [Mass/Vol] 2.1 mg/dL 1.6-2.6 [facility] Urea nitrogen/Creatinine [Mass ratio] 27.0 mg/mg 10-20 [facility] Laboratory - Hematology and Cell countsOrdered By: Dr. Herring on 07-11-2022 Erythrocyte distribution width (RBC) [Entitic vol] 43.5 fL 35.1-43.9 [facility] Erythrocyte distribution width (RBC) [Ratio] 12.8 % 11.6-14.6 [facility] Immature granulocytes/100 WBC (Bld) 0.200 % 0.0-0.9 [facility] Comment on above: IG% - Immature Granu locytes (promyelocytes, myelocytes and metamyelocytes) > 1% indicates that a LEFT SHIFT is Present. MCH (RBC) [Entitic mass] 29.2 pg 27.0-32.0 [facility] Nucleated RBC/100 WBC (Bld) [Ratio] 0 % 0-5 [facility] MCHC Auto (RBC) [Mass/Vol]Or dered By: Dr. Herring on 07-11-2022 MCHC (RBC) [Mass/Vol] 31.5 g/dL 32-36 [facility] No Panel InformationOrdered By: Dr. Herring on 07-11-2022 Estimated Creatinine Clearance Calc 50.02 ml/min [facility] Estimated GFR (MDRD) Amer 69 mL/min >60 [facility] Comment on above: GFR Calc Estimated GFR (MDRD) Non-Af Amer 57 mL/min >60 [facility] Comment on above: Non- GFR Calc Platelets bldOrdered By: Dr. Herring on 07-11-2022 Platelets (Bld) [#/Vol] 177 10*3/uL 150-450 [facility] Review by pathologistOrdered By: Dr. Herring on 07-11-2022 Pathologist review Ferny (Unsp spec) [Interp] Reviewed [facility] Comment on above: Previous reported re sult: Trixie byrne Edited by: SHELLY on 07/13/22:1353 AMENDED REPORT 07/13/22 [id number] PATH REV previously reported as: Trixie byrne Serum or plasma calcium zora urement (mass/volume)Ordered By: Dr. Herring on 07-11-2022 Calcium [Mass/Vol] 8.4 mg/dL 8.5-10.[address] [facility] Serum or plasma creatinine m easurement (mass/volume)Ordered By: Dr. Herring on 07-11-2022 Creatinine [Mass/Vol] 1.00 mg/dL 0.55-1.02 [facility] Comment on above: The validity of the calculated GFR & GFRAA in patients over 70 years has not been determined. Clinical correlation is essential. Serum or plasma urea nitroge n measurement (mass/volume)Ordered By: Dr. Herring on 07-11-2022 Urea nitrogen [Mass/Vol] 27 mg/dL 7-18 [facility] Thin prep Papanicolaou smear with manual screeningOrdered By: Dr. Herring on 07-11-2022 Thin prep Papanicolaou smear with manual screening 7 5-15 [facility] Whole blood hemoglobin A1c/t otal hemoglobin ratio (mass fraction)Ordered By: Dr. Torres on 07-11-2022 HbA1c (Bld) [Mass fraction] 7.6 % 3.8-5.6 [facility] Comment on above: Normal < 5.7 % Predi abetic 5.7 - 6.4 % Diabetic >or= 6.5 % Please note range changes. Absolute lymphocyte counton 07-10-2022 Lymphocytes Auto (Unsp spec) [#/Vol] 0.35 10*3/uL 0.83-4.51 [facility] Work Phone: Basophil percentageon 2021 Basophils/100 WBC (Bld) 0.4 % 0-1 [facility] Work Phone: Chloride [Moles/Vol] 101 mmol/L 98-107 [facility]: Eosinophils/100 WBC (Bld) 0.7 % 0-5 [facility] Work Phone: Glucose [Mass/Vol] 253 mg/dL 74-[address] [facility] Work Phone: [phone] Comment on above: Glucose result great er than or equal to 200 mg/dLsuggests DIABETES MELLITUS per A.D.A. criteria. Neutrophils (Bld) [#/Vol] 4.6 10*3/uL 2.0-7.7 [facility] Work Phone: Neutrophils/100 WBC (Bld) 83.5 % 47-70 [facility] Work Phone: Potassium [Moles/Vol] 3.8 mmol/L 3.5-5.1 [facility] Work Phone: Sodium [Moles/Vol] 136 mmol/L 136-[address] [facility] Work Phone: [phone] WBC (Bld) [#/Vol] 5.5 10*3/uL 4.4-11.[address] [facility] Work Phone: Blood erythrocytes count (nu mber/volume)on 07-10-2022 RBC (Bld) [#/Vol] 4.74 10*6/uL 4.2-5.4 [facility] Work Phone: [phone] Blood hemoglobin measurement (mass/volume)on 07-10-2022 Hemoglobin (Bld) [Mass/Vol] 13.8 g/dL 12.0-15.0 [facility] Work Phone: [phone] Blood lymphocytes/100 leukoc yteson 07-10-2022 Lymphocytes/100 WBC (Bld) 6.3 % 19-41 [facility] Work Phone: Blood manual differential co mment interpretation (narrative result)Ordered By: ED PROVIDER on 07-10-2022 Manual differential comment Ferny (Bld) [Interp] SCANNED [facility] Blood monocytes/100 leukocyt eson 07-10-2022 Monocytes/100 WBC (Bld) 8.7 % 0-10 [facility] Work Phone: Blood platelet mean volumeon 07-10-2022 Platelet mean volume (Bld) [Entitic vol] 11.6 fL 6.2-12.0 [facility] Work Phone: Determination of erythrocyte mean corpuscular volume (MCV)on 07-10-2022 MCV (RBC) [Entitic vol] 91.6 fL 81-99 [facility] Work Phone: Hematocrit Auto (Bld) [Volum e fraction]on 07-10-2022 Hematocrit (Bld) [Volume fraction] 43.4 % 37-47 [facility] Work Phone: Laboratory - Chemistry and C hemistry - challengeon 07-10-2022 CO2 [Moles/Vol] 27.0 mmol/L 21.0-32.0 [facility] Work Phone: Urea nitrogen/Creatinine [Mass ratio] 22.1 mg/mg 10-20 [facility] Work Phone: Laboratory - Hematology and Cell countson 07-10-2022 Erythrocyte distribution width (RBC) [Entitic vol] 42.4 fL 35.1-43.9 [facility] Work Phone: Erythrocyte distribution width (RBC) [Ratio] 12.6 % 11.6-14.6 [facility] Work Phone: Immature granulocytes/100 WBC (Bld) 0.400 % 0.0-0.9 [facility] Work Phone: Comment on above: IG% - Immature Granu locytes (promyelocytes, myelocytes and metamyelocytes) > 1% indicates that a LEFT SHIFT is Present. MCH (RBC) [Entitic mass] 29.1 pg 27.0-32.0 [facility] Work Phone: Nucleated RBC/100 WBC (Bld) [Ratio] 0 % 0-5 [facility] Work Phone: Laboratory - Microbiology an d Antimicrobial susceptibilityOrdered By: Dr. Herring on 07-10-2022 SARS-CoV-2 (COVID-19) RNA RAYMOND+probe Ql (Unsp spec) Not detected Not Detect [facility] Comment on above: Normal Reference Ran ge: Not DetectedMethod:(RT-PCR) real-time reverse transcriptase PCRLuminex MARIAM Instrument*The Food and Drug Administration (FDA) has issued an Emergency Use Authorization (EAU) for the Itaconix SARS-CoV-2 Assay for the rapid detection of [...] 07-10-2022 MCHC (RBC) [Mass/Vol] 31.8 g/dL 32-36 [facility] Work Phone: No Panel InformationOrdered By: Dr. Harvey on 07-10-2022 D-Dimer Quantitative (PE/DVT) 0.52 FEU/ug/m 0.27-0.49 [facility] Comment on above: D-Dimer ELEVATED (>0 .49): Additional studies and clinicalassessments are indicated to conclude diagnosis of:Deep Vein Thrombosis (DVT) or Pulmonary Embolism (PE)CRITICAL VALUE VERIFIED. CALLED TO FRANCHESCA MORRIS07/10/22 1230 Hannah Beasley.RESULTS READ BACK BY SAME . Troponin I High Sensitivity 12 pg/mL 3.0-54.0 [facility] Comment on above: Please Note: New Mariajose t Units and Gender Specific Reference Ranges. For more information see Policy Stat Procedure [place] High Sensitivity Troponin (TNIH) and attachments. No Panel Informationon 07-10 Estimated Creatinine Clearance Calc 58.16 ml/min [facility] Work Phone: Estimated GFR (MDRD) Amer 82 mL/min >60 [facility] Work Phone: Comment on above: GFR Calc Estimated GFR (MDRD) Non-Af Amer 68 mL/min >60 [facility] Work Phone: Comment on above: Non- GFR Calc Platelets bldon 07-10-2022 Platelets (Bld) [#/Vol] 193 10*3/uL 150-450 [facility] Work Phone: Serum or plasma calcium zora urement (mass/volume)on 07-10-2022 Calcium [Mass/Vol] 8.8 mg/dL 8.5-10.[address] [facility] Work Phone: Serum or plasma creatinine m easurement (mass/volume)on 07-10-2022 Creatinine [Mass/Vol] 0.86 mg/dL 0.55-1.02 [facility] Work Phone: Comment on above: The validity of the calculated GFR & GFRAA in patients over 70 years has not been determined. Clinical correlation is essential. Serum or plasma urea nitroge n measurement (mass/volume)on 07-10-2022 Urea nitrogen [Mass/Vol] 19 mg/dL 7-18 [facility] Work Phone: Thin prep Papanicolaou smear with manual screeningon 07-10-2022 Thin prep Papanicolaou smear with manual screening 8 5-15 [facility] Work Phone: Absolute lymphocyte counton 02-11-2022 Lymphocytes Auto (Unsp spec) [#/Vol] 0.98 10*3/uL 0.83-4.51 [facility] Work Phone: Basophil percentageon 2021 Basophils/100 WBC (Bld) 0.4 % 0-1 [facility] Work Phone: Chloride [Moles/Vol] 104 mmol/L 98-107 [facility] Work Phone: Eosinophils/100 WBC (Bld) 4.0 % 0-5 [facility] Work Phone: Glucose [Mass/Vol] 144 mg/dL 74-[address] [facility] Work Phone: Comment on above: Fasting Glucose resu lt greater than or equal to 126 mg/dL suggests DIABETES MELLITUS per A.D.A. criteria. Neutrophils (Bld) [#/Vol] 5.3 10*3/uL 2.0-7.7 [facility] Work Phone: Neutrophils/100 WBC (Bld) 75.1 % 47-70 [facility] Work Phone: Potassium [Moles/Vol] 4.1 mmol/L 3.5-5.1 [facility] Work Phone: Sodium [Moles/Vol] 138 mmol/L 136-[address] [facility] Work Phone: WBC (Bld) [#/Vol] 7.1 10*3/uL 4.4-11.[address] [facility] Work Phone: Blood erythrocytes count (nu mber/volume)on 02-11-2022 RBC (Bld) [#/Vol] 4.54 10*6/uL 4.2-5.4 [facility] Work Phone: Blood hemoglobin measurement (mass/volume)on 02-11-2022 Hemoglobin (Bld) [Mass/Vol] 13.4 g/dL 12.0-15.0 [facility] Work Phone: Blood lymphocytes/100 leukoc yteson 02-11-2022 Lymphocytes/100 WBC (Bld) 13.9 % 19-41 [facility] Work Phone: Blood monocytes/100 leukocyt eson 02-11-2022 Monocytes/100 WBC (Bld) 6.5 % 0-10 [facility] Work Phone: Blood platelet mean volumeon 02-11-2022 Platelet mean volume (Bld) [Entitic vol] 11.6 fL 6.2-12.0 [facility] Work Phone: Determination of erythrocyte mean corpuscular volume (MCV)on 02-11-2022 MCV (RBC) [Entitic vol] 88.8 fL 81-99 [facility] Work Phone: Hematocrit Auto (Bld) [Volum e fraction]on 02-11-2022 Hematocrit (Bld) [Volume fraction] 40.3 % 37-47 [facility] Work Phone: Laboratory - Chemistry and C hemistry - challengeon 02-11-2022 CO2 [Moles/Vol] 30.0 mmol/L 21.0-32.0 [facility] Work Phone: Urea nitrogen/Creatinine [Mass ratio] 14.4 mg/mg 10-20 [facility] Work Phone: Laboratory - Hematology and Cell countson 02-11-2022 Erythrocyte distribution width (RBC) [Entitic vol] 41.5 fL 35.1-43.9 [facility] Work Phone: Erythrocyte distribution width (RBC) [Ratio] 12.7 % 11.6-14.6 [facility] Work Phone: Immature granulocytes/100 WBC (Bld) 0.100 % 0.0-0.9 [facility] Work Phone: Comment on above: IG% - Immature Granu locytes (promyelocytes, myelocytes and metamyelocytes) > 1% indicates that a LEFT SHIFT is Present. MCH (RBC) [Entitic mass] 29.5 pg 27.0-32.0 [facility] Work Phone: Nucleated RBC/100 WBC (Bld) [Ratio] 0 % 0-5 [facility] Work Phone: MCHC Auto (RBC) [Mass/Vol]on 02-11-2022 MCHC (RBC) [Mass/Vol] 33.3 g/dL 32-36 [facility] Work Phone: No Panel Informationon 02-11 Estimated Creatinine Clearance Calc 48.09 ml/min [facility] Work Phone: Estimated GFR (MDRD) Amer 66 mL/min >60 [facility] Work Phone: Comment on above: GFR Calc Estimated GFR (MDRD) Non-Af Amer 55 mL/min >60 [facility] Work Phone: Comment on above: Non- GFR Calc Thyroid Stimulating Hormone (TSH) 2.08 uIU/mL 0.358-3.74 [facility] Work Phone: Platelets bldon 02-11-2022 Platelets (Bld) [#/Vol] 187 10*3/uL 150-450 [facility] Work Phone: Serum or plasma calcium zora urement (mass/volume)on 02-11-2022 Calcium [Mass/Vol] 9.2 mg/dL 8.5-10.[address] [facility] Work Phone: Serum or plasma creatinine m easurement (mass/volume)on 02-11-2022 Creatinine [Mass/Vol] 1.04 mg/dL 0.55-1.[address] [facility] Work Phone: Comment on above: The validity of the calculated GFR & GFRAA in patients over 70 years has not been determined. Clinical correlation is essential. Serum or plasma urea nitroge n measurement (mass/volume)on 02-11-2022 Urea nitrogen [Mass/Vol] 15 mg/dL 7-18 [facility] Work Phone: Thin prep Papanicolaou smear with manual screeningon 02-11-2022 Thin prep Papanicolaou smear with manual screening 4 5-15 [facility] Work Phone: XR HUMERUS 2V AP/LAT RIGHTon 12-17-2021 [facility] XR Humerus - right AP and La teralon 12-17-2021 IMPRESSION: No acute process. Senior Health Physics Technician: EVIE Transcribe Date/Time: Dec 17 2021 1:44P [...] present. [id number] USE_DIVISIO N OF RADIOLOGY Provider, [facility] - 12/17/2021 * * *Final Report* * [...] is present. IMPRESSION IMPRESSION: No acute process. Senior Health Physics Techn[facility] Trans[facility] Date/Time: Dec 17 2021 1:44P Dictated by : CESAR REYES MD This examination was interpreted and the report reviewed and electronically signed by: CESAR REYES MD on Dec 17 2021 1:47PM EST [facility] Radiology Study observation (narrative) Jeremias Pardo XR Humerus - right AP and La teralOrdered By: Ccf Provider on 12-17-2021 [facility] No Panel Informationon 12-16 [facility] No Panel Informationon 10-29 [facility] Basic metabolic 2000 panelon 09-11-2021 Anion gap [Moles/Vol] 13 mmol/L 9 - 18 mmol/L [facility] Calcium [Mass/Vol] 10.3 mg/dL High 8.5 - 10. 2 mg/dL [facility] Chloride [Moles/Vol] 102 mmol/L 97 - 10 5 mmol/L [facility] CO2 [Moles/Vol] 25 mmol/L 22 - 30 mmol/L [facility] Creatinine [Mass/Vol] 0.79 mg/dL 0.58 - 0.96 mg/dL [facility] GFR/1.73 sq M.predicted among blacks MDRD (S/P/Bld) [Vol rate/Area] mL/min/{1.73_m2} [facility] GFR/1.73 sq M.predicted among non-blacks MDRD (S/P/Bld) [Vol rate/Area] mL/min/{1.73_m2} [facility] Glucose [Mass/Vol] 88 mg/dL 74 - 99 mg/dL [facility] Potassium [Moles/Vol] 4.3 mmol/L 3.7 - 5.1 mmol/L [facility] Sodium [Moles/Vol] 140 mmol/L 136 - 144 mmol/L [facility] Urea nitrogen [Mass/Vol] 19 mg/dL 7 - 21 mg/dL [facility] CBC panel Auto (Bld)on 09-11 Absolute nRBC <0.01 <0.01 k/uL [facility] Erythrocyte distribution width (RBC) [Ratio] 12.5 % 11.5 - 15.0 % [facility] Hematocrit (Bld) [Volume fraction] 45.0 % 36.0 - 46.0 % [facility] Hemoglobin (Bld) [Mass/Vol] 14.4 g/dL 11.5 - 15.5 g/dL [facility] MCH (RBC) [Entitic mass] 29.4 pG 26. 0 - 34.0 pG [facility] MCHC (RBC) [Mass/Vol] 32.0 g/dL 30.5 - 36.0 g/dL [facility] MCV (RBC) [Entitic vol] 92.0 fL 80.0 - 100.0 fL [facility] Platelet mean volume (Bld) [Entitic vol] 12.1 fL 9.0 - 12.7 fL [facility] Platelets (Bld) [#/Vol] 204 10*3/uL 150 - 400 k/uL [facility] RBC (Bld) [#/Vol] 4.89 10*6/uL 3.90 - 5.2 0 m/uL [facility] WBC (Bld) [#/Vol] 6.76 10*3/uL 3.70 - 11.00 k/uL [facility] VITAMIN D 25 HYDROXYon 09-11 25-hydroxyvitamin D3 [Mass/Vol] 74.4 ng/mL 31.0 - 80.0 ng/mL [facility] Office Visiton 11-22-2016 Dietary management education, guidance, and counseling (procedure) yes Invalid Interpretation Code [facility] Work Phone: Documentation of current medications (procedure) Done Invalid Interpretation Code [facility] Phone: [phone] 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 Left 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 Ejection fraction 65 % Invalid Interpretation Code [facility] Work Phone: Office Visiton 07-21-2015 Documentation of current medications (procedure) Done Invalid Interpretation Code [facility] Work Phone: [phone] Tobacco use CPHS Former smoker Invalid Interpretation Code [facility] Phone: [phone] Office Visit: [facility] 01-07-20 15 cardiac risk group B Invalid Interpretation Code [facility] Work Phone: [phone] General cardiovascular disease 10Y risk [#] [place]D'Agostino 9 % Invalid Interpretation Code [facility] Work Phone: [phone] Replaced Document: Melissa E CG Observationson 01-06-2015 electrocardiogram interpretation Sinus Rhythm WITHIN NORMAL LIMITS Invalid Interpretation Code [facility] Work Phone: [phone] GE use only - for [employer] import when terms are not otherwise specified 428 ms Invalid Interpretation Code [facility] Work Phone: [phone] P wave axis, electrocardiogram 67 deg Invalid Interpretation Code [facility] Work Phone: [phone] OR interval, electrocardiogram 130 ms Invalid Interpretation Code [facility] Work Phone: [phone] Pulse (Heart Rate) 60 /min Invalid Interpretation Code [facility] Work Phone: [phone] QRS axis, electrocardiogram 44 deg Invalid Interpretation Code [facility] Work Phone: [phone] QRS duration, electrocardiogram 88 ms Invalid Interpretation Code [facility] Work Phone: [phone] QT interval, electrocardiogram new path ms Invalid Interpretation Code [facility] Work Phone: [phone] T wave axis, electrocardiogram 51 deg Invalid Interpretation Code [facility] Work Phone: [phone] Lab Report: Drawn @ [facility] Cholesterol 147 mg/dL Invalid Interpretation Code [facility] Work Phone: [phone] HDL Cholesterol 59 mg/dL Invalid Interpretation Code [facility] Phone: [phone] LDL Cholesterol 75 mg/dL Invalid Interpretation Code [facility] Work Phone: [phone] Triglyceride 65 mg/dL Invalid Interpretation Code [facility] Work Phone: [phone] very low density lipoproteins 13 mg/dL Invalid Interpretation Code [facility] Phone: [phone] Replaced Document: Melissa Rabago CG Observationson 03-23-2013 Pulse (Heart Rate) 445 ms Invalid Interpretation Code [facility] Phone: [phone] 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 Anion gap 10 mmol/L Invalid Interpretation Code [facility] Phone: [phone] BUN/Creatinine Ratio 25.0 mg/mg Invalid Interpretation Code [facility] Work Phone: [phone] Calcium 8.3 mg/dL Invalid Interpretation Code [facility] Work Phone: [phone] Chloride 105 mmol/L Invalid Interpretation Code [facility] Work Phone: [phone] CO2 26.0 mmol/L Invalid Interpretation Code [facility] Work Phone: [phone] Creatinine 0.8 mg/dL Invalid Interpretation Code [facility] Work Phone: [phone] Erythrocytes (RBC) 4.14 10*6/uL Invalid Interpretation Code [facility] Work Phone: [phone] Glucose 244 mg/dL High [facility] Work Phone: [phone] Hematocrit (HCT) 36.6 % Invalid Interpretation Code [facility] Work Phone: [phone] Hemoglobin (HGB) 12.5 g/dL Invalid Interpretation Code [facility] Work Phone: [phone] MCH 30.1 pg Invalid Interpretation Code [facility] Work Phone: [phone] MCV 88.5 fL Invalid Interpretation Code [facility] Work Phone: [phone] Platelets 163 10*3/mm3 Invalid Interpretation Code [facility] Work Phone: [phone] Potassium 4.2 mmol/L Invalid Interpretation Code [facility] Work Phone: [phone] Sodium 141 mmol/L Invalid Interpretation Code [facility] Work Phone: [phone] Urea nitrogen 20 mg/dL Invalid Interpretation Code [facility] Work Phone: [phone] WBC (Leukocytes) 7.1 10*3/uL Invalid Interpretation Code [facility] Work Phone: [phone] 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 Thyroid stimulating hormone (TSH) 2.01 u[iU]/mL Invalid Interpretation Code [facility] Work Phone: [phone] Culture, urine Bacteria identified Cx Nom (U) Positive [facility] Work Phone: Gram stain for investigation of transfusion reaction Microscopic observation Gram stain Nom (Unsp spec) [facility] Work Phone: Influenza virus A and B and SARS-CoV-2 (COVID-19) Ag panel - Upper respiratory specim SARS-CoV-2 & FLU Antigen (Rapid) SARS-CoV-2 (COVID 19) [facility] Work Phone: Laboratory - Microbiology an d Antimicrobial susceptibility Bacteria identified Cx Nom (Bld) No growth in 5 days. [facility] Work Phone: Microbial respiratory cultur e Bacteria identified Respiratory culture Nom (Unsp spec) or Staphylococcus aureus isolated. [facility] Work Phone: No Panel Information Streptococcus pneumoniae Antigen (M [facility] Work Phone: SARS-CoV-2 (COVID-19) Ag IA. rapid Ql (Resp) SARS-CoV-2 Antigen (Rapid) SARS-CoV-2 (COVID 19) [facility] Work Phone: Vital Signs Date Time Vital Sign Value Performing Clinician Facility 01-15-2025 09:56-0400 Body height 176.5 cm Octavio Reza MD Work Phone: [facility] 01-15-2025 09:56-0400 Body mass index (BMI) [Ratio] 40.43 kg/m2 Octavio Reza MD Work Phone: [facility] 01-15-2025 09:56-0400 Body weight 126 kg Octavio Reza MD Work Phone: [facility] 01-15-2025 09:56-0400 Diastolic blood pressure 80 mm[Hg] Octavio Reza MD Work Phone: [facility] 01-15-2025 09:56-0400 Heart rate 59 /min Octavio Reza MD Work Phone: [facility] 01-15-2025 09:56-0400 Respiratory rate 16 /min Octavio Reza MD Work Phone: [facility] 01-15-2025 09:56-0400 Systolic blood pressure 138 mm[Hg] Octavio Reza MD Work Phone: [facility] 01-14-2025 09:11-0400 Body height 175.[address] Octavio Reza MD Work Phone: [facility] 01-14-2025 09:11-0400 Body mass index (BMI) [Ratio] 41.2 kg/m2 Dr. Octavio Reza MD Work Phone: [facility] 01-14-2025 09:11-0400 Body weight 126.[address] Octavio Reza MD Work Phone: [facility] 01-14-2025 09:11-0400 Diastolic blood pressure 76 mm[Hg] Dr. Octavio Reza MD Work Phone: 1(625)781-091507 [place] [address] 01-14-2025 09:11-0400 Heart rate 56 /min Dr. Octavio Reza MD Work Phone: 9(301)684-795107 [place] [address] 01-14-2025 09:11-0400 Respiratory rate 18 /min Dr. Octavio Reza MD Work Phone: 1(657)217-276607 [place] [address] 01-14-2025 09:11-0400 Systolic blood pressure 147 mm[Hg] Dr. Octavio Reza MD Work Phone: 9(641)069-275307 [place] [address] 01-04-2025 23:10-0400 Body temperature 98 [degF] Dr. Octavio Reza MD Work Phone: 3(858)517-399007 [place] [address] 01-04-2025 23:10-0400 Diastolic blood pressure 54 mm[Hg] Dr. Octavio Reza MD Work Phone: 4(519)493-683607 [place] [address] 01-04-2025 23:10-0400 Heart rate 64 /min Dr. Octavio Reza MD Work Phone: 2(270)014-253307 [place] [address] 01-04-2025 23:10-0400 Respiratory rate 16 /min Dr. Octavio Reza MD Work Phone: 2(737)617-870107 [place] [address] 01-04-2025 23:10-0400 SaO2% (BldA) [Mass fraction] 95 % Dr. Octavio Reza MD Work Phone: 0(133)142-273107 [place] [address] 01-04-2025 23:10-0400 Systolic blood pressure 137 mm[Hg] Dr. Octavio Reza MD Work Phone: 4(073)103-105307 [place] [address] 01-04-2025 19:16-0400 Body height 175.[address] Octavio Reza MD Work Phone: 4(981)974-498507 [place] [address] 12-19-2024 17:46-0400 Body temperature 97.7 [degF] Dr. Octavio Reza MD Work Phone: 8(898)616-412007 [place] [address] 12-19-2024 17:46-0400 Diastolic blood pressure 63 mm[Hg] Dr. Octavio Reza MD Work Phone: 2(911)296-262907 [place] [address] 12-19-2024 17:46-0400 Heart rate 88 /min Dr. Octavio Reza MD Work Phone: 1(667)766-445507 [place] [address] 12-19-2024 17:46-0400 Respiratory rate 16 /min Dr. Octavio Reza MD Work Phone: 5(889)736-046107 [place] [address] 12-19-2024 17:46-0400 SaO2% (BldA) [Mass fraction] 99 % Dr. Octavio Reza MD Work Phone: 3(084)909-934207 [place] [address] 12-19-2024 17:46-0400 Systolic blood pressure 167 mm[Hg] Dr. Octavio Reza MD Work Phone: 0(806)898-410407 [place] [address] 12-19-2024 15:55-0400 Body mass index (BMI) [Ratio] 42.4 kg/m2 Dr. Octavio Reza MD Work Phone: 8(633)492-385407 [place] [address] 12-19-2024 15:55-0400 Body weight 130.[address] Octavio Reza MD Work Phone: 7(759)965-455107 [place] [address] 12-19-2024 15:49-0400 Body height 175.[address] Octavio Reza MD Work Phone: 1(943)963-904207 [place] [address] 11-29-2024 23:34-0400 Body temperature 98 [degF] Dr. Octavio Reza MD Work Phone: 2(633)092-396107 [place] [address] 11-29-2024 23:34-0400 Diastolic blood pressure 69 mm[Hg] Dr. Octavio Reza MD Work Phone: 1(161)203-944707 [place] [address] 11-29-2024 23:34-0400 Heart rate 90 /min Dr. Octavio Reza MD Work Phone: 9(180)368-872607 [place] [address] 11-29-2024 23:34-0400 Respiratory rate 18 /min Dr. Octavio Reza MD Work Phone: 5(628)260-943607 [place] [address] 11-29-2024 23:34-0400 SaO2% (BldA) [Mass fraction] 98 % Dr. Octavio Reza MD Work Phone: 2(267)383-261607 [place] [address] 11-29-2024 23:34-0400 Systolic blood pressure 157 mm[Hg] Dr. Octavio Reza MD Work Phone: 7(407)215-422507 [place] [address] 11-29-2024 21:15-0400 Body mass index (BMI) [Ratio] 42.8 kg/m2 Dr. Octavio Reza MD Work Phone: 1(073)072-200007 [place] [address] 11-29-2024 21:15-0400 Body weight 131.[address] Octavio Reza MD Work Phone: 2(344)523-993507 [place] [address] 11-29-2024 21:13-0400 Body height 175.[address] Octavio Reza MD Work Phone: 4(923)285-720107 [place] [address] 11-15-2024 08:20-0400 Body mass index (BMI) [Ratio] 41.6 kg/m2 Dr. Octavio Reza MD Work Phone: 5(113)508-678207 [place] [address] 11-15-2024 08:20-0400 Body weight 127.[address] Octavio Reza MD Work Phone: 4(280)872-706507 [place] [address] 11-15-2024 08:20-0400 Diastolic blood pressure 64 mm[Hg] Dr. Octavio Reza MD Work Phone: 5(294)566-583107 [place] [address] 11-15-2024 08:20-0400 Heart rate 72 /min Dr. Octavio Reza MD Work Phone: 8(305)093-073807 [place] [address] 11-15-2024 08:20-0400 Respiratory rate 18 /min Dr. Octavio Reza MD Work Phone: 4(641)374-358907 [place] [address] 11-15-2024 08:20-0400 Systolic blood pressure 137 mm[Hg] Dr. Octavio Reza MD Work Phone: 5(273)265-843107 [place] [address] 11-03-2024 11:07-0400 Body temperature 97.8 [degF] Dr. Octavio Reza MD Work Phone: [facility] 11-03-2024 11:07-0400 Diastolic blood pressure 59 mm[Hg] Dr. Octavio Reza MD Work Phone: [facility] 11-03-2024 11:07-0400 Heart rate 87 /min Dr. Octavio Reza MD Work Phone: [facility] 11-03-2024 11:07-0400 Respiratory rate 16 /min Dr. Octavio Reza MD Work Phone: 7(582)192-392307 [place] [address] 11-03-2024 11:07-0400 SaO2% (BldA) [Mass fraction] 98 % Dr. Octavio Reza MD Work Phone: 8(759)129-228174 [place] [address] 11-03-2024 11:07-0400 Systolic blood pressure 153 mm[Hg] Dr. Octavio Reza MD Work Phone: 2(958)734-025174 [place] [address] 11-03-2024 06:56-0400 Body height 175.[address] Octavio Reza MD Work Phone: 8(003)615-953407 [place] [address] 11-03-2024 06:56-0400 Body mass index (BMI) [Ratio] 43.2 kg/m2 Dr. Octavio Reza MD Work Phone: 8(557)928-881807 [place] [address] 11-03-2024 06:56-0400 Body weight 132.[address] Octavio Reza MD Work Phone: [facility] 10-31-2024 15:00-0400 Body mass index (BMI) [Ratio] 42.27 kg/m2 Renetta Cioce CORRECTIONAL CAPTAIN.COMPUTER NUMERICAL CONTROL PROGRAMMER Work Phone: [facility] 10-31-2024 15:00-0400 Body temperature 97.81 [degF] Renetta Cioce CORRECTIONAL CAPTAIN.COMPUTER NUMERICAL CONTROL PROGRAMMER Work Phone: [facility] 10-31-2024 15:00-0400 Body weight 131.72 kg Renetta Cioce CORRECTIONAL CAPTAIN.COMPUTER NUMERICAL CONTROL PROGRAMMER Work Phone: [facility] 10-31-2024 15:00-0400 Heart rate 72 /min Renetta Cioce CORRECTIONAL CAPTAIN.COMPUTER NUMERICAL CONTROL PROGRAMMER Work Phone: [facility] 10-31-2024 15:00-0400 SaO2% (BldA) [Mass fraction] 96 % Renetta Cioce CORRECTIONAL CAPTAIN.COMPUTER NUMERICAL CONTROL PROGRAMMER Work Phone: [facility] 10-24-2024 22:08-0400 Body temperature 98 [degF] Dr. Octavio Reza MD Work Phone: 2(417)071-805074 [place] [address] 10-24-2024 22:08-0400 Diastolic blood pressure 60 mm[Hg] Dr. Octavio Reza MD Work Phone: 4(864)896-723074 [place] [address] 10-24-2024 22:08-0400 Heart rate 71 /min Dr. Octavio Reza MD Work Phone: 6(965)654-606074 [place] [address] 10-24-2024 22:08-0400 Respiratory rate 18 /min Dr. Octavio Reza MD Work Phone: 1(139)730-452974 [place] [address] 10-24-2024 22:08-0400 SaO2% (BldA) [Mass fraction] 95 % Dr. Octavio Reza MD Work Phone: [facility] 10-24-2024 22:08-0400 Systolic blood pressure 150 mm[Hg] Dr. Octavio Reza MD Work Phone: 4(273)467-990074 [place] [address] 10-24-2024 20:50-0400 Body mass index (BMI) [Ratio] 46 kg/m2 Dr. Octavio Reza MD Work Phone: 4(795)895-945374 [place] [address] 10-24-2024 20:50-0400 Body weight 141.[address] Octavio Reza MD Work Phone: 9(118)005-516774 [place] [address] 10-24-2024 20:23-0400 Body height 175.[address] Octavio Reza MD Work Phone: 7(755)438-901074 [place] [address] 10-19-2024 12:41-0400 Body temperature 97.8 [degF] Dr. Octavio Reza MD Work Phone: 3(092)050-265674 [place] [address] 10-19-2024 12:41-0400 Diastolic blood pressure 78 mm[Hg] Dr. Octavio Reza MD Work Phone: 0(914)309-175074 [place] [address] 10-19-2024 12:41-0400 Heart rate 73 /min Dr. Octavio Reza MD Work Phone: 9(519)846-650407 [place] [address] 10-19-2024 12:41-0400 Respiratory rate 14 /min Dr. Octavio Reza MD Work Phone: 2(238)487-221607 [place] [address] 10-19-2024 12:41-0400 SaO2% (BldA) [Mass fraction] 97 % Dr. Octavio Reza MD Work Phone: 7(828)764-852707 [place] [address] 10-19-2024 12:41-0400 Systolic blood pressure 141 mm[Hg] Dr. Octavio Reza MD Work Phone: 2(530)557-967574 [place] [address] 10-19-2024 09:42-0400 Body mass index (BMI) [Ratio] 42.4 kg/m2 Dr. Octavio Reza MD Work Phone: 5(670)768-168574 [place] [address] 10-19-2024 09:42-0400 Body weight 130.[address] Octavio Reza MD Work Phone: 8(344)780-904107 [place] [address] 10-19-2024 09:27-0400 Body height 175.[address] Octavio Reza MD Work Phone: [facility] 10-15-2024 13:40-0400 Body mass index (BMI) [Ratio] 42.2 kg/m2 Octavio Reza MD Work Phone: [facility] 10-15-2024 13:40-0400 Body weight 131.5 kg Octavio Reza MD Work Phone: [facility] 10-15-2024 13:40-0400 Diastolic blood pressure 64 mm[Hg] Octavio Reza MD Work Phone: [facility] 10-15-2024 13:40-0400 Heart rate 64 /min Octavio Reza MD Work Phone: [facility] 10-15-2024 13:40-0400 Respiratory rate 14 /min Octavio Reza MD Work Phone: [facility] 10-15-2024 13:40-0400 Systolic blood pressure 140 mm[Hg] Octavio Reza MD Work Phone: [facility] 09-26-2024 10:04-0400 Body mass index (BMI) [Ratio] 43.03 kg/m2 Octavio Reza MD Work Phone: [facility] 09-26-2024 10:04-0400 Body weight 134.1 kg Octavio Reza MD Work Phone: [facility] 09-26-2024 10:04-0400 Diastolic blood pressure 75 mm[Hg] Octavio Reza MD Work Phone: [facility] 09-26-2024 10:04-0400 Heart rate 55 /min Octavio Reza MD Work Phone: [facility] 09-26-2024 10:04-0400 Respiratory rate 16 /min Octavio Reza MD Work Phone: [facility] 09-26-2024 10:04-0400 Systolic blood pressure 143 mm[Hg] Octavio Reza MD Work Phone: [facility] 09-23-2024 22:36-0400 Body temperature 98 [degF] Dr. Octavio Reza MD Work Phone: [facility] 09-23-2024 22:36-0400 Diastolic blood pressure 57 mm[Hg] Dr. Octavio Reza MD Work Phone: [facility] 09-23-2024 22:36-0400 Heart rate 65 /min Dr. Octavio Reza MD Work Phone: [facility] 09-23-2024 22:36-0400 Respiratory rate 18 /min Dr. Octavio Reza MD Work Phone: 7(701)622-509774 [place] [address] 09-23-2024 22:36-0400 SaO2% (BldA) [Mass fraction] 99 % Dr. Octavio Reza MD Work Phone: 1(235)470-604607 [place] [address] 09-23-2024 22:36-0400 Systolic blood pressure 135 mm[Hg] Dr. Octavio Reza MD Work Phone: 3(642)451-013607 [place] [address] 09-23-2024 19:25-0400 Body height 175.[address] Octavio Reza MD Work Phone: 1(882)797-644807 [place] [address] 09-23-2024 19:25-0400 Body mass index (BMI) [Ratio] 44 kg/m2 Dr. Octavio Reza MD Work Phone: 3(672)308-194607 [place] [address] 09-23-2024 19:25-0400 Body weight 135.[address] Octavio Reza MD Work Phone: 0(910)891-541807 [place] [address] 09-21-2024 10:19-0500 Body temperature 97.9 [degF] Dr. Octavio Reza MD Work Phone: 7(729)066-359007 [place] [address] 09-21-2024 10:19-0500 Diastolic blood pressure 50 mm[Hg] Dr. Octavio Reza MD Work Phone: 1(505)635-514507 [place] [address] 09-21-2024 10:19-0500 Heart rate 73 /min Dr. Octavio Reza MD Work Phone: 3(331)235-849707 [place] [address] 09-21-2024 10:19-0500 Respiratory rate 16 /min Dr. Octavio Reza MD Work Phone: 1(950)326-661307 [place] [address] 09-21-2024 10:19-0500 SaO2% (BldA) [Mass fraction] 99 % Dr. Octavio Reza MD Work Phone: 7(950)115-394907 [place] [address] 09-21-2024 10:19-0500 Systolic blood pressure 118 mm[Hg] Dr. Octavio Reza MD Work Phone: 5(441)890-474007 [place] [address] 09-21-2024 06:22-0500 Body height 175.[address] Octavio Reza MD Work Phone: 0(703)968-263407 [place] [address] 09-21-2024 06:22-0500 Body mass index (BMI) [Ratio] 43.7 kg/m2 Dr. Octavio Reza MD Work Phone: 7(798)478-026807 [place] [address] 09-21-2024 06:22-0500 Body weight 134.[address] Octavio Reza MD Work Phone: 1(244)216-690207 [place] [address] 09-20-2024 23:40-0500 Body temperature 98.4 [degF] Dr. Octavio Reza MD Work Phone: 8(208)537-966007 [place] [address] 09-20-2024 23:40-0500 Diastolic blood pressure 51 mm[Hg] Dr. Octavio Reza MD Work Phone: 2(419)801-920307 [place] [address] 09-20-2024 23:40-0500 Heart rate 80 /min Dr. Octavio Reza MD Work Phone: 1(057)318-473507 [place] [address] 09-20-2024 23:40-0500 Respiratory rate 18 /min Dr. Octavio Reza MD Work Phone: 2(733)603-416507 [place] [address] 09-20-2024 23:40-0500 SaO2% (BldA) [Mass fraction] 95 % Dr. Octavio Reza MD Work Phone: 9(685)559-551807 [place] [address] 09-20-2024 23:40-0500 Systolic blood pressure 116 mm[Hg] Dr. Octavio Reza MD Work Phone: 6(987)029-837407 [place] [address] 09-20-2024 17:49-0500 Body height 175.[address] Octavio Reza MD Work Phone: 4(279)179-734907 [place] [address] 07-28-2024 22:41-0500 Body temperature 97.4 [degF] Dr. Octavio Reza MD Work Phone: 9(628)798-985807 [place] [address] 07-28-2024 22:41-0500 Diastolic blood pressure 74 mm[Hg] Dr. Octavio Reza MD Work Phone: [facility] 07-28-2024 22:41-0500 Heart rate 59 /min Dr. Octavio Reza MD Work Phone: 8(607)472-920174 [place] [address] 07-28-2024 22:41-0500 Respiratory rate 18 /min Dr. Octavio Reza MD Work Phone: 9(001)785-871507 [place] [address] 07-28-2024 22:41-0500 SaO2% (BldA) [Mass fraction] 98 % Dr. Octavio Reza MD Work Phone: 4(640)013-043507 [place] [address] 07-28-2024 22:41-0500 Systolic blood pressure 160 mm[Hg] Dr. Octavio Reza MD Work Phone: 0(447)040-087607 [place] [address] 07-28-2024 20:36-0500 Body mass index (BMI) [Ratio] 45.3 kg/m2 Dr. Octavio Reza MD Work Phone: 4(189)559-101207 [place] [address] 07-28-2024 20:36-0500 Body weight 139.[address] Octavio Reza MD Work Phone: [facility] 07-03-2024 14:30-0500 Diastolic blood pressure 73 mm[Hg] Lydia Grande CORRECTIONAL CAPTAIN.VP CUSTOMER SERVICE Work Phone: [facility] Comment on above: bp average 07-03-2024 14:30-0500 Heart rate 67 /min Lydia Grande CORRECTIONAL CAPTAIN.VP CUSTOMER SERVICE Work Phone: [facility] 07-03-2024 14:30-0500 Systolic blood pressure 132 mm[Hg] Lydia Grande CORRECTIONAL CAPTAIN.VP CUSTOMER SERVICE Work Phone: [facility] Comment on above: bp average 07-03-2024 14:25-0500 Body mass index (BMI) [Ratio] 44.22 kg/m2 Lydia Grande CORRECTIONAL CAPTAIN.VP CUSTOMER SERVICE Work Phone: [facility] 07-03-2024 14:25-0500 Body weight 137.8 kg Lydia Grande CORRECTIONAL CAPTAIN.VP CUSTOMER SERVICE Work Phone: 5(950)875-030700 [place] [address] 07-03-2024 14:25-0500 Respiratory rate 16 /min Lydia Grande APRN.CNS Work Phone: 5(027)397-903700 [place] [address] 07-03-2024 00:49-0500 Body temperature 97.6 [degF] Dr. Octavio Reza MD Work Phone: 3(378)431-823607 [place] [address] 07-03-2024 00:49-0500 Diastolic blood pressure 71 mm[Hg] Dr. Octavio Reza MD Work Phone: 1(087)448-643507 [place] [address] 07-03-2024 00:49-0500 Heart rate 60 /min Dr. Octavio Reza MD Work Phone: 0(859)574-404307 [place] [address] 07-03-2024 00:49-0500 Respiratory rate 19 /min Dr. Octavio Reza MD Work Phone: 3(399)715-268107 [place] [address] 07-03-2024 00:49-0500 SaO2% (BldA) [Mass fraction] 97 % Dr. Octavio Reza MD Work Phone: 2(394)804-198107 [place] [address] 07-03-2024 00:49-0500 Systolic blood pressure 142 mm[Hg] Dr. Octavio Reza MD Work Phone: 3(803)313-386207 [place] [address] 07-02-2024 21:59-0500 Body mass index (BMI) [Ratio] 44.9 kg/m2 Dr. Octavio Reza MD Work Phone: 0(289)013-220507 [place] [address] 07-02-2024 21:59-0500 Body weight 137.[address] Octavio Reza MD Work Phone: 9(678)363-104807 [place] [address] 06-13-2024 08:55-0500 Body mass index (BMI) [Ratio] 44.9 kg/m2 Dr. Octavio Reza MD Work Phone: 8(748)381-790307 [place] [address] 06-13-2024 08:55-0500 Body weight 137.[address] Octavio Reza MD Work Phone: 0(076)597-942607 [place] [address] 06-13-2024 08:55-0500 Diastolic blood pressure 65 mm[Hg] Dr. Octavio Reza MD Work Phone: [facility] 06-13-2024 08:55-0500 Heart rate 58 /min Dr. Octavio Reza MD Work Phone: [facility] 06-13-2024 08:55-0500 Respiratory rate 18 /min Dr. Octavio Reza MD Work Phone: [facility] 06-13-2024 08:55-0500 Systolic blood pressure 155 mm[Hg] Dr. Octavio Reza MD Work Phone: [facility] 06-11-2024 09:46-0500 Body mass index (BMI) [Ratio] 44.86 kg/m2 Octavio Reza MD Work Phone: [facility] 06-11-2024 09:46-0500 Body weight 139.8 kg Octavio Reza MD Work Phone: [facility] 06-11-2024 09:46-0500 Diastolic blood pressure 78 mm[Hg] Octavio Reza MD Work Phone: [facility] 06-11-2024 09:46-0500 Heart rate 51 /min Octavio Reza MD Work Phone: [facility] 06-11-2024 09:46-0500 SaO2% (BldA) [Mass fraction] 96 % Octavio Reza MD Work Phone: [facility] 06-11-2024 09:46-0500 Systolic blood pressure 124 mm[Hg] Octavio Reza MD Work Phone: [facility] 06-08-2024 19:19-0500 Body temperature 97.7 [degF] Dr. Octavio Reza MD Work Phone: [facility] 06-08-2024 19:19-0500 Diastolic blood pressure 85 mm[Hg] Dr. Octavio Reza MD Work Phone: [facility] 06-08-2024 19:19-0500 Heart rate 64 /min Dr. Octavio Reza MD Work Phone: 9(100)540-267274 [place] [address] 06-08-2024 19:19-0500 Respiratory rate 18 /min Dr. Octavio Reza MD Work Phone: 6(867)842-412407 [place] [address] 06-08-2024 19:19-0500 SaO2% (BldA) [Mass fraction] 94 % Dr. Octavio Reza MD Work Phone: 6(023)381-014307 [place] [address] 06-08-2024 19:19-0500 Systolic blood pressure 150 mm[Hg] Dr. Octavio Reza MD Work Phone: 0(596)695-942707 [place] [address] 06-08-2024 17:11-0500 Body mass index (BMI) [Ratio] 46.2 kg/m2 Dr. Octavio Reza MD Work Phone: 4(448)396-854107 [place] [address] 06-08-2024 17:11-0500 Body weight 141.[address] Octavio Reza MD Work Phone: 9(850)425-023707 [place] [address] 05-27-2024 21:02-0500 Body temperature 97.8 [degF] Dr. Octavio Reza MD Work Phone: 0(871)537-613207 [place] [address] 05-27-2024 21:02-0500 Diastolic blood pressure 80 mm[Hg] Dr. Octavio Reza MD Work Phone: 9(343)306-174307 [place] [address] 05-27-2024 21:02-0500 Heart rate 68 /min Dr. Octavio Reza MD Work Phone: 1(626)363-391374 [place] [address] 05-27-2024 21:02-0500 Respiratory rate 18 /min Dr. Octavio Reza MD Work Phone: 7(870)671-370407 [place] [address] 05-27-2024 21:02-0500 SaO2% (BldA) [Mass fraction] 97 % Dr. Octavio Reza MD Work Phone: 7(788)555-223507 [place] [address] 05-27-2024 21:02-0500 Systolic blood pressure 146 mm[Hg] Dr. Octavio Reza MD Work Phone: 5(789)989-451307 [place] [address] 05-25-2024 06:17-0500 Body temperature 97 [degF] Dr. Octavio Reza MD Work Phone: 0(643)935-208974 [place] [address] 05-25-2024 06:17-0500 Diastolic blood pressure 53 mm[Hg] Dr. Octavio Reza MD Work Phone: 0(245)970-560074 [place] [address] 05-25-2024 06:17-0500 Heart rate 72 /min Dr. Octavio Reza MD Work Phone: 8(081)504-779207 [place] [address] 05-25-2024 06:17-0500 Respiratory rate 17 /min Dr. Octavio Reza MD Work Phone: 1(681)364-921107 [place] [address] 05-25-2024 06:17-0500 SaO2% (BldA) [Mass fraction] 95 % Dr. Octavio Reza MD Work Phone: 4(547)059-823607 [place] [address] 05-25-2024 06:17-0500 Systolic blood pressure 121 mm[Hg] Dr. Octavio Reza MD Work Phone: 0(780)996-249207 [place] [address] 05-25-2024 04:47-0500 Body mass index (BMI) [Ratio] 46.1 kg/m2 Dr. Octavio Reza MD Work Phone: 6(081)570-800507 [place] [address] 05-25-2024 04:47-0500 Body weight 141.[address] Octavio Reza MD Work Phone: [facility] 05-23-2024 12:31-0500 Body height 176.5 cm Renetta Cioce CORRECTIONAL CAPTAIN.COMPUTER NUMERICAL CONTROL PROGRAMMER Work Phone: [facility] 05-23-2024 12:31-0500 Body mass index (BMI) [Ratio] 44.98 kg/m2 Renetta Cioce CORRECTIONAL CAPTAIN.COMPUTER NUMERICAL CONTROL PROGRAMMER Work Phone: [facility] 05-23-2024 12:31-0500 Body weight 140.16 kg Renetta Cioce CORRECTIONAL CAPTAIN.COMPUTER NUMERICAL CONTROL PROGRAMMER Work Phone: [facility] 05-23-2024 12:31-0500 Diastolic blood pressure 72 mm[Hg] Renetta Cioce CORRECTIONAL CAPTAIN.COMPUTER NUMERICAL CONTROL PROGRAMMER Work Phone: [facility] 05-23-2024 12:31-0500 Heart rate 60 /min Renetta Cioce CORRECTIONAL CAPTAIN.COMPUTER NUMERICAL CONTROL PROGRAMMER Work Phone: [facility] 05-23-2024 12:31-0500 Respiratory rate 20 /min Renetta Cioce CORRECTIONAL CAPTAIN.COMPUTER NUMERICAL CONTROL PROGRAMMER Work Phone: [facility] 05-23-2024 12:31-0500 SaO2% (BldA) [Mass fraction] 97 % Renetta Cioce CORRECTIONAL CAPTAIN.COMPUTER NUMERICAL CONTROL PROGRAMMER Work Phone: [facility] 05-23-2024 12:31-0500 Systolic blood pressure 138 mm[Hg] Renetta Cioce CORRECTIONAL CAPTAIN.COMPUTER NUMERICAL CONTROL PROGRAMMER Work Phone: [facility] 05-07-2024 15:18-0400 Diastolic blood pressure 72 mm[Hg] Davon Narda CORRECTIONAL CAPTAIN.COMPUTER NUMERICAL CONTROL PROGRAMMER Work Phone: [facility] 05-07-2024 15:18-0400 Systolic blood pressure 140 mm[Hg] Davon Narda CORRECTIONAL CAPTAIN.COMPUTER NUMERICAL CONTROL PROGRAMMER Work Phone: [facility] 05-07-2024 15:09-0400 Body mass index (BMI) [Ratio] 45.31 kg/m2 Davon Narda CORRECTIONAL CAPTAIN.COMPUTER NUMERICAL CONTROL PROGRAMMER Work Phone: [facility] 05-07-2024 15:09-0400 Body weight 141.2 kg Davon Narda CORRECTIONAL CAPTAIN.COMPUTER NUMERICAL CONTROL PROGRAMMER Work Phone: [facility] 05-07-2024 15:09-0400 Heart rate 60 /min Davon Narda CORRECTIONAL CAPTAIN.COMPUTER NUMERICAL CONTROL PROGRAMMER Work Phone: [facility] 05-07-2024 15:09-0400 SaO2% (BldA) [Mass fraction] 97 % Davon Narda CORRECTIONAL CAPTAIN.COMPUTER NUMERICAL CONTROL PROGRAMMER Work Phone: [facility] 04-18-2024 09:24-0400 Body mass index (BMI) [Ratio] 46.18 kg/m2 Smiley Prieto CORRECTIONAL CAPTAIN.COMPUTER NUMERICAL CONTROL PROGRAMMER Work Phone: [facility] 04-18-2024 09:24-0400 Body temperature 97.3 [degF] Smiley Prieto CORRECTIONAL CAPTAIN.COMPUTER NUMERICAL CONTROL PROGRAMMER Work Phone: [facility] 04-18-2024 09:24-0400 Body weight 143.9 kg Smiley Prieto CORRECTIONAL CAPTAIN.COMPUTER NUMERICAL CONTROL PROGRAMMER Work Phone: [facility] 04-18-2024 09:24-0400 Diastolic blood pressure 84 mm[Hg] Smiley Prieto CORRECTIONAL CAPTAIN.COMPUTER NUMERICAL CONTROL PROGRAMMER Work Phone: [facility] 04-18-2024 09:24-0400 Heart rate 60 /min Smiley Prieto CORRECTIONAL CAPTAIN.COMPUTER NUMERICAL CONTROL PROGRAMMER Work Phone: [facility] 04-18-2024 09:24-0400 Respiratory rate 18 /min Smiley Prieto CORRECTIONAL CAPTAIN.COMPUTER NUMERICAL CONTROL PROGRAMMER Work Phone: [facility] 04-18-2024 09:24-0400 SaO2% (BldA) [Mass fraction] 97 % Smiley Prieto CORRECTIONAL CAPTAIN.COMPUTER NUMERICAL CONTROL PROGRAMMER Work Phone: [facility] 04-18-2024 09:24-0400 Systolic blood pressure 136 mm[Hg] Smiley Prieto CORRECTIONAL CAPTAIN.COMPUTER NUMERICAL CONTROL PROGRAMMER Work Phone: [facility] 03-07-2024 10:50-0400 Diastolic blood pressure 82 mm[Hg] Ariane Click CORRECTIONAL CAPTAIN.COMPUTER NUMERICAL CONTROL PROGRAMMER Work Phone: [facility] 03-07-2024 10:50-0400 Heart rate 72 /min Ariane Click CORRECTIONAL CAPTAIN.COMPUTER NUMERICAL CONTROL PROGRAMMER Work Phone: [facility] 03-07-2024 10:50-0400 Respiratory rate 15 /min Ariane Click CORRECTIONAL CAPTAIN.COMPUTER NUMERICAL CONTROL PROGRAMMER Work Phone: [facility] 03-07-2024 10:50-0400 SaO2% (BldA) [Mass fraction] 97 % Ariane Click CORRECTIONAL CAPTAIN.COMPUTER NUMERICAL CONTROL PROGRAMMER Work Phone: [facility] 03-07-2024 10:50-0400 Systolic blood pressure 132 mm[Hg] Ariane Click CORRECTIONAL CAPTAIN.COMPUTER NUMERICAL CONTROL PROGRAMMER Work Phone: [facility] 02-15-2024 14:34-0400 Body height 176.5 cm Renetta Cioce CORRECTIONAL CAPTAIN.COMPUTER NUMERICAL CONTROL PROGRAMMER Work Phone: [facility] 02-15-2024 14:34-0400 Body mass index (BMI) [Ratio] 45.85 kg/m2 Renetta Cioce CORRECTIONAL CAPTAIN.COMPUTER NUMERICAL CONTROL PROGRAMMER Work Phone: [facility] 02-15-2024 14:34-0400 Body temperature 97.81 [degF] Renetta Cioce CORRECTIONAL CAPTAIN.COMPUTER NUMERICAL CONTROL PROGRAMMER Work Phone: [facility] 02-15-2024 14:34-0400 Body weight 142.88 kg Renetta Cioce CORRECTIONAL CAPTAIN.COMPUTER NUMERICAL CONTROL PROGRAMMER Work Phone: [facility] 02-15-2024 14:34-0400 Heart rate 65 /min Renetta Cioce CORRECTIONAL CAPTAIN.COMPUTER NUMERICAL CONTROL PROGRAMMER Work Phone: [facility] 02-15-2024 14:34-0400 SaO2% (BldA) [Mass fraction] 96 % Renetta Cioce CORRECTIONAL CAPTAIN.COMPUTER NUMERICAL CONTROL PROGRAMMER Work Phone: [facility] 02-13-2024 09:17-0400 Body mass index (BMI) [Ratio] 45.88 kg/m2 Octavio Reza MD Work Phone: [facility] 02-13-2024 09:17-0400 Body temperature 97.5 [degF] Octavio Reza MD Work Phone: [facility] 02-13-2024 09:17-0400 Body weight 142.97 kg Octavio Reza MD Work Phone: [facility] 02-13-2024 09:17-0400 Diastolic blood pressure 80 mm[Hg] Octavio Reza MD Work Phone: [facility] 02-13-2024 09:17-0400 Heart rate 59 /min Octavio Reza MD Work Phone: [facility] 02-13-2024 09:17-0400 Respiratory rate 16 /min Octavio Reza MD Work Phone: [facility] 02-13-2024 09:17-0400 SaO2% (BldA) [Mass fraction] 97 % Octavio Reza MD Work Phone: [facility] 02-13-2024 09:17-0400 Systolic blood pressure 130 mm[Hg] Octavio Reza MD Work Phone: [facility] 01-02-2024 11:16-0400 Body mass index (BMI) [Ratio] 46.66 kg/m2 Tamika Morris MD Work Phone: [facility] 01-02-2024 11:16-0400 Body temperature 97.59 [degF] Tamika Morris MD Work Phone: [facility] 01-02-2024 11:16-0400 Body weight 145.4 kg Tamika Morris MD Work Phone: [facility] 01-02-2024 11:16-0400 Diastolic blood pressure 82 mm[Hg] Tamika Morris MD Work Phone: [facility] 01-02-2024 11:16-0400 Heart rate 60 /min Tamika Morris MD Work Phone: [facility] 01-02-2024 11:16-0400 Respiratory rate 18 /min Tamika Morris MD Work Phone: [facility] 01-02-2024 11:16-0400 SaO2% (BldA) [Mass fraction] 95 % Tamika Morris MD Work Phone: [facility] 01-02-2024 11:16-0400 Systolic blood pressure 152 mm[Hg] Tamika Morris MD Work Phone: [facility] 12-07-2023 10:13-0400 Body height 176.5 cm Renetta Cioce CORRECTIONAL CAPTAIN.COMPUTER NUMERICAL CONTROL PROGRAMMER Work Phone: [facility] 12-07-2023 10:13-0400 Body mass index (BMI) [Ratio] 48.03 kg/m2 Renetta Cioce CORRECTIONAL CAPTAIN.COMPUTER NUMERICAL CONTROL PROGRAMMER Work Phone: [facility] 12-07-2023 10:13-0400 Body weight 149.69 kg Renetta Cioce CORRECTIONAL CAPTAIN.COMPUTER NUMERICAL CONTROL PROGRAMMER Work Phone: [facility] 12-07-2023 10:13-0400 Diastolic blood pressure 70 mm[Hg] Renetta Cioce CORRECTIONAL CAPTAIN.COMPUTER NUMERICAL CONTROL PROGRAMMER Work Phone: [facility] 12-07-2023 10:13-0400 Heart rate 58 /min Renetta Cioce CORRECTIONAL CAPTAIN.COMPUTER NUMERICAL CONTROL PROGRAMMER Work Phone: [facility] 12-07-2023 10:13-0400 Respiratory rate 20 /min Renetta Cioce CORRECTIONAL CAPTAIN.COMPUTER NUMERICAL CONTROL PROGRAMMER Work Phone: [facility] 12-07-2023 10:13-0400 SaO2% (BldA) [Mass fraction] 96 % Renetta Cioce CORRECTIONAL CAPTAIN.COMPUTER NUMERICAL CONTROL PROGRAMMER Work Phone: [facility] 12-07-2023 10:13-0400 Systolic blood pressure 132 mm[Hg] Renetat Cioce CORRECTIONAL CAPTAIN.COMPUTER NUMERICAL CONTROL PROGRAMMER Work Phone: [facility] 11-29-2023 00:00-0400 Body temperature 98.7 [degF] Dr. Octavio Reza Work Phone: [facility] 11-29-2023 00:00-0400 Diastolic blood pressure 59 mm[Hg] Dr. Octavio Reza Work Phone: [facility] 11-29-2023 00:00-0400 Heart rate 85 /min Dr. Octavio Reza Work Phone: [facility] 11-29-2023 00:00-0400 Respiratory rate 16 /min Dr. Octavio Reza Work Phone: [facility] 11-29-2023 00:00-0400 SaO2% (BldA) [Mass fraction] 99 % Dr. Octavio Reza Work Phone: [facility] 11-29-2023 00:00-0400 Systolic blood pressure 130 mm[Hg] Dr. Octavio Reza Work Phone: [facility] 11-28-2023 20:06-0400 Body mass index (BMI) [Ratio] 53.1 kg/m2 Dr. Octavio Reza Work Phone: [facility] 11-28-2023 20:06-0400 Body weight 159.[address] Octavio Reza Work Phone: [facility] 11-28-2023 18:51-0400 Body height 172.[address] Octavio Reza Work Phone: [facility] 11-09-2023 15:10-0400 Diastolic blood pressure 70 mm[Hg] Davon Narda [employer] Work Phone: [facility] 11-09-2023 15:10-0400 Systolic blood pressure 132 mm[Hg] Davon Narda [employer]CTION[employer]TAIN.COMPUTER [employer] PROGRAMMER Work Phone: [facility] 11-09-2023 15:08-0400 Body mass index (BMI) [Ratio] 48.88 kg/m2 Davon Narda [employer]TAIN.COMPUTER [employer] PROGRAMMER Work Phone: [facility] 11-09-2023 15:08-0400 Body weight 150.14 kg Davon Narda [employer]CTION[employer]TAIN.COMPUTER [employer] PROGRAMMER Work Phone: [facility] 11-09-2023 15:08-0400 Heart rate 63 /min Davon Narda CORRECTIONAL CAPTAIN.COMPUTER NUMERICAL CONTROL PROGRAMMER Work Phone: [facility] 11-09-2023 15:08-0400 SaO2% (BldA) [Mass fraction] 98 % Davon Narda CORRECTIONAL CAPTAIN.COMPUTER NUMERICAL CONTROL PROGRAMMER Work Phone: [facility] 11-07-2023 17:47-0400 Diastolic blood pressure 65 mm[Hg] Dr. Octavio Reza Work Phone: [facility] 11-07-2023 17:47-0400 Heart rate 74 /min Dr. Octavio Reza Work Phone: [facility] 11-07-2023 17:47-0400 Respiratory rate 16 /min Dr. Octavio Reza Work Phone: 6(410)974-619774 [place] [address] 11-07-2023 17:47-0400 SaO2% (BldA) [Mass fraction] 95 % Dr. Octavio Reza Work Phone: 2(417)362-505074 [place] [address] 11-07-2023 17:47-0400 Systolic blood pressure 161 mm[Hg] Dr. Octavio Reza Work Phone: 0(209)722-288274 [place] [address] 11-07-2023 15:43-0400 Body height 175.[address] Octavio Reza Work Phone: 8(898)319-399807 [place] [address] 11-07-2023 15:43-0400 Body temperature 97.1 [degF] Dr. Octavio Reza Work Phone: 0(165)443-272207 [place] [address] 11-07-2023 00:02-0400 Body temperature 96.5 [degF] Dr. Octavio Reza Work Phone: 1(951)019-119807 [place] [address] 11-07-2023 00:02-0400 Diastolic blood pressure 62 mm[Hg] Dr. Octavio Reza Work Phone: 4(384)240-957974 [place] [address] 11-07-2023 00:02-0400 Heart rate 61 /min Dr. Octavio Reza Work Phone: 2(163)711-149074 [place] [address] 11-07-2023 00:02-0400 Respiratory rate 18 /min Dr. Octavio Reza Work Phone: 4(191)017-968874 [place] [address] 11-07-2023 00:02-0400 SaO2% (BldA) [Mass fraction] 97 % Dr. Octavio Reza Work Phone: 4(880)055-433174 [place] [address] 11-07-2023 00:02-0400 Systolic blood pressure 150 mm[Hg] Dr. Octavio Reza Work Phone: 3(876)153-705374 [place] [address] 11-07-2023 00:01-0400 Body mass index (BMI) [Ratio] 49.1 kg/m2 Dr. Octavio Reza Work Phone: [facility] 11-07-2023 00:01-0400 Body weight [address] Octavio Reza Work Phone: [facility] 11-06-2023 19:26-0400 Body height 175.[address] Octavio Reza Work Phone: [facility] 10-31-2023 08:12-0400 Body temperature 97.3 [degF] Tamika Morris MD Work Phone: [facility] 10-31-2023 08:12-0400 Body weight 156.04 kg Tamika Morris MD Work Phone: [facility] 10-31-2023 08:12-0400 Diastolic blood pressure 82 mm[Hg] Tamika Morris MD Work Phone: [facility] 10-31-2023 08:12-0400 Heart rate 59 /min Tamika Morris MD Work Phone: [facility] 10-31-2023 08:12-0400 Respiratory rate 18 /min Tamika Morris MD Work Phone: [facility] 10-31-2023 08:12-0400 SaO2% (BldA) [Mass fraction] 96 % Tamika Morris MD Work Phone: [facility] 10-31-2023 08:12-0400 Systolic blood pressure 142 mm[Hg] Tamika Morris MD Work Phone: [facility] 10-28-2023 21:12-0400 Body temperature 97.7 [degF] Dr. Octavio Reza Work Phone: [facility] 10-28-2023 21:12-0400 Diastolic blood pressure 58 mm[Hg] Dr. Octavio Reza Work Phone: [facility] 10-28-2023 21:12-0400 Heart rate 63 /min Dr. Octavio Reza Work Phone: [facility] 10-28-2023 21:12-0400 Respiratory rate 16 /min Dr. Octavio Reza Work Phone: 6(008)254-323774 [place] [address] 10-28-2023 21:12-0400 SaO2% (BldA) [Mass fraction] 95 % Dr. Octavio Reza Work Phone: 4(331)018-061774 [place] [address] 10-28-2023 21:12-0400 Systolic blood pressure 152 mm[Hg] Dr. Octavio Reza Work Phone: 8(519)002-162407 [place] [address] 10-28-2023 19:23-0400 Body mass index (BMI) [Ratio] 50.8 kg/m2 Dr. Octavio Reza Work Phone: 8(677)735-569107 [place] [address] 10-28-2023 19:23-0400 Body weight [address] Octavio Reza Work Phone: 8(896)607-420307 [place] [address] 10-28-2023 18:51-0400 Body height 175.[address] Octavio Reza Work Phone: 5(577)666-015407 [place] [address] 10-01-2023 16:37-0400 Body temperature 98 [degF] Dr. Octavio Reza Work Phone: 5(696)540-659407 [place] [address] 10-01-2023 16:37-0400 Diastolic blood pressure 65 mm[Hg] Dr. Octavio Reza Work Phone: 5(963)344-821707 [place] [address] 10-01-2023 16:37-0400 Heart rate 72 /min Dr. Octavio Reza Work Phone: 4(568)189-087274 [place] [address] 10-01-2023 16:37-0400 Respiratory rate 18 /min Dr. Octavio Reza Work Phone: 5(470)588-430474 [place] [address] 10-01-2023 16:37-0400 SaO2% (BldA) [Mass fraction] 95 % Dr. Octavio Reza Work Phone: 3(254)579-458907 [place] [address] 10-01-2023 16:37-0400 Systolic blood pressure 142 mm[Hg] Dr. Octavio Reza Work Phone: 1(334)012-619007 [place] [address] 10-01-2023 14:35-0400 Body mass index (BMI) [Ratio] 49.8 kg/m2 Dr. Octavio Reza Work Phone: [facility] 10-01-2023 14:35-0400 Body weight 153.[address] Octavio Reza Work Phone: 7(839)935-087374 [place] [address] 10-01-2023 14:33-0400 Body height 175.[address] Octavio Reza Work Phone: 5(225)706-014307 [place] [address] 09-29-2023 09:36-0400 Body mass index (BMI) [Ratio] 49.8 kg/m2 Dr. Octavio Reza Work Phone: 6(985)959-093974 [place] [address] 09-29-2023 09:36-0400 Body weight 153.[address] Octavio Reza Work Phone: 8(338)617-125374 [place] [address] 09-29-2023 09:36-0400 Diastolic blood pressure 66 mm[Hg] Dr. Octavio Reza Work Phone: 4(709)014-688174 [place] [address] 09-29-2023 09:36-0400 Respiratory rate 16 /min Dr. Octavio Reza Work Phone: [facility] 09-29-2023 09:36-0400 Systolic blood pressure 143 mm[Hg] Dr. Octavio Reza Work Phone: [facility] 09-22-2023 13:02-0500 Body weight 155.13 kg Jeannine Perkins MD Work Phone: [facility] 09-22-2023 13:02-0500 Diastolic blood pressure 68 mm[Hg] Jeannine Perkins MD Work Phone: [facility] 09-22-2023 13:02-0500 Heart rate 65 /min Jeannine Perkins MD Work Phone: [facility] 09-22-2023 13:02-0500 Respiratory rate 18 /min Jeannine Perkins MD Work Phone: [facility] 09-22-2023 13:02-0500 SaO2% (BldA) [Mass fraction] 96 % Jeannine Perkins MD Work Phone: [facility] 09-22-2023 13:02-0500 Systolic blood pressure 136 mm[Hg] Jeannine Perkins MD Work Phone: [facility] 09-21-2023 03:44-0500 Body temperature 97.7 [degF] [facility] 09-21-2023 03:44-0500 Diastolic blood pressure 79 mm[Hg] [facility] 09-21-2023 03:44-0500 Heart rate 64 /min [facility] 09-21-2023 03:44-0500 Respiratory rate 13 /min [facility] 09-21-2023 03:44-0500 SaO2% (BldA) [Mass fraction] 97 % [facility] 09-21-2023 03:44-0500 Systolic blood pressure 120 mm[Hg] [facility] 09-21-2023 00:22-0500 Body height 175.26 cm [facility] 09-21-2023 00:22-0500 Body mass index (BMI) [Ratio] 50.7 kg/m2 [facility] 09-21-2023 00:22-0500 Body weight 155.9 kg [facility] 09-16-2023 20:17-0500 Body temperature 97.2 [degF] [facility] 09-16-2023 20:17-0500 Diastolic blood pressure 58 mm[Hg] [facility] 09-16-2023 20:17-0500 Heart rate 59 /min [facility] 09-16-2023 20:17-0500 Respiratory rate 18 /min [facility] 09-16-2023 20:17-0500 SaO2% (BldA) [Mass fraction] 98 % [facility] 09-16-2023 20:17-0500 Systolic blood pressure 116 mm[Hg] [facility] 09-16-2023 17:54-0500 Body height 175.26 cm [facility] 09-16-2023 17:54-0500 Body mass index (BMI) [Ratio] 49 kg/m2 [facility] 09-16-2023 17:54-0500 Body weight 150.59 kg [facility] 09-01-2023 12:05-0500 Body weight 156.49 kg Lydia Grande CORRECTIONAL CAPTAIN.VP CUSTOMER SERVICE Work Phone: [facility] 09-01-2023 12:05-0500 Diastolic blood pressure 74 mm[Hg] Lydia Grande CORRECTIONAL CAPTAIN.VP CUSTOMER SERVICE Work Phone: [facility] 09-01-2023 12:05-0500 Heart rate 64 /min Lydia Grande CORRECTIONAL CAPTAIN.VP CUSTOMER SERVICE Work Phone: [facility] 09-01-2023 12:05-0500 Respiratory rate 16 /min Lydia Grande CORRECTIONAL CAPTAIN.VP CUSTOMER SERVICE Work Phone: [facility] 09-01-2023 12:05-0500 SaO2% (BldA) [Mass fraction] 96 % Lydia Grande CORRECTIONAL CAPTAIN.VP CUSTOMER SERVICE Work Phone: [facility] 09-01-2023 12:05-0500 Systolic blood pressure 144 mm[Hg] Lydia Grande CORRECTIONAL CAPTAIN.VP CUSTOMER SERVICE Work Phone: [facility] 06-23-2023 08:53-0500 Diastolic blood pressure 84 mm[Hg] Tierney Mayra PA-C Work Phone: [facility] 06-23-2023 08:53-0500 Heart rate 57 /min Tierney Mayra PA-C Work Phone: [facility] 06-23-2023 08:53-0500 Respiratory rate 17 /min Tierney Mayra PA-C Work Phone: [facility] 06-23-2023 08:53-0500 SaO2% (BldA) [Mass fraction] 96 % Tierney Mayra PA-C Work Phone: [facility] 06-23-2023 08:53-0500 Systolic blood pressure 122 mm[Hg] Tierney Mayra PA-C Work Phone: [facility] 05-28-2023 21:52-0500 Diastolic blood pressure 61 mm[Hg] [facility] 05-28-2023 21:52-0500 Heart rate 58 /min [facility] 05-28-2023 21:52-0500 Respiratory rate 16 /min [facility] 05-28-2023 21:52-0500 SaO2% (BldA) [Mass fraction] 95 % [facility] 05-28-2023 21:52-0500 Systolic blood pressure 141 mm[Hg] [facility] 05-28-2023 18:21-0500 Body mass index (BMI) [Ratio] 50.6 kg/m2 [facility] 05-28-2023 18:21-0500 Body weight 155.6 kg [facility] 05-28-2023 18:19-0500 Body temperature 96.5 [degF] [facility] 05-23-2023 14:08-0500 Body temperature 97.2 [degF] Octavio Reza MD Work Phone: [facility] 05-23-2023 14:08-0500 Body weight 154.22 kg Octavio Reza MD Work Phone: [facility] 05-23-2023 14:08-0500 Diastolic blood pressure 82 mm[Hg] Octavio Reza MD Work Phone: [facility] 05-23-2023 14:08-0500 Heart rate 68 /min Octavio Reza MD Work Phone: [facility] 05-23-2023 14:08-0500 Respiratory rate 18 /min Octavio Reza MD Work Phone: [facility] 05-23-2023 14:08-0500 SaO2% (BldA) [Mass fraction] 98 % Octavio Reza MD Work Phone: [facility] 05-23-2023 14:08-0500 Systolic blood pressure 128 mm[Hg] Octavio Reza MD Work Phone: [facility] 05-16-2023 09:30-0400 Body height 176.5 cm Anant Lees MD Work Phone: [facility] 05-16-2023 09:30-0400 Body weight 153.77 kg Anant Lees MD Work Phone: [facility] 05-16-2023 09:30-0400 Diastolic blood pressure 73 mm[Hg] Anant Lees MD Work Phone: [facility] 05-16-2023 09:30-0400 Heart rate 60 /min Anant Lees MD Work Phone: [facility] 05-16-2023 09:30-0400 SaO2% (BldA) [Mass fraction] 97 % Anant Lees MD Work Phone: [facility] 05-16-2023 09:30-0400 Systolic blood pressure 124 mm[Hg] Anant Lees MD Work Phone: [facility] 02-13-2023 19:20-0400 Body temperature 97.8 [degF] Dr. Octavio Reza Work Phone: [facility] 02-13-2023 19:20-0400 Diastolic blood pressure 79 mm[Hg] Dr. Octavio Reza Work Phone: [facility] 02-13-2023 19:20-0400 Heart rate 67 /min Dr. Octavio Reza Work Phone: [facility] 02-13-2023 19:20-0400 Respiratory rate 14 /min Dr. Octavio Reza Work Phone: [facility] 02-13-2023 19:20-0400 SaO2% (BldA) [Mass fraction] 99 % Dr. Octavio Reza Work Phone: [facility] 02-13-2023 19:20-0400 Systolic blood pressure 145 mm[Hg] Dr. Octavio Reza Work Phone: [facility] 02-13-2023 18:16-0400 Body height 175.[address] Octavio Reza Work Phone: [facility] 02-13-2023 18:16-0400 Body mass index (BMI) [Ratio] 49.1 kg/m2 Dr. Octavio Reza Work Phone: [facility] 02-13-2023 18:16-0400 Body weight 151.[address] Octavio Reza Work Phone: [facility] 01-17-2023 13:47-0400 Body temperature 97 [degF] Octavio Reza MD Work Phone: [facility] 01-17-2023 13:47-0400 Diastolic blood pressure 69 mm[Hg] Octavio Reza MD Work Phone: [facility] 01-17-2023 13:47-0400 Heart rate 63 /min Octavio Reza MD Work Phone: [facility] 01-17-2023 13:47-0400 Respiratory rate 18 /min Octavio Reza MD Work Phone: [facility] 01-17-2023 13:47-0400 SaO2% (BldA) [Mass fraction] 96 % Octavio Reza MD Work Phone: [facility] 01-17-2023 13:47-0400 Systolic blood pressure 122 mm[Hg] Octavio Reza MD Work Phone: [facility] 11-22-2022 12:52-0400 Body height 175.[address] Octavio Reza Work Phone: [facility] 11-22-2022 12:52-0400 Body mass index (BMI) [Ratio] 49.1 kg/m2 Dr. Octavio Reza Work Phone: [facility] 11-22-2022 12:52-0400 Body weight 151.[address] Octavio Reza Work Phone: [facility] 11-22-2022 12:52-0400 Diastolic blood pressure 66 mm[Hg] Dr. Octavio Reza Work Phone: [facility] 11-22-2022 12:52-0400 Heart rate 65 /min Dr. Octavio Reza Work Phone: 1(542)883-902207 [place] [address] 11-22-2022 12:52-0400 Inhaled oxygen flow rate 1 L/min Dr. Octavio Reza Work Phone: 1(297)908-893007 [place] [address] 11-22-2022 12:52-0400 Respiratory rate 20 /min Dr. Octavio Reza Work Phone: 3(127)652-811407 [place] [address] 11-22-2022 12:52-0400 SaO2% (BldA) [Mass fraction] 96 % Dr. Octavio Reza Work Phone: 9(239)440-961307 [place] [address] 11-22-2022 12:52-0400 Systolic blood pressure 145 mm[Hg] Dr. Octavio Reza Work Phone: 2(026)479-131007 [place] [address] 11-04-2022 21:00-0400 Diastolic blood pressure 59 mm[Hg] Dr. Octavio Reza Work Phone: 7(471)947-290307 [place] [address] 11-04-2022 21:00-0400 Heart rate 72 /min Dr. Octavio Reza Work Phone: 1(911)333-979007 [place] [address] 11-04-2022 21:00-0400 Inhaled oxygen flow rate 1 L/min Dr. Octavio Reza Work Phone: 8(901)759-732407 [place] [address] 11-04-2022 21:00-0400 Respiratory rate 12 /min Dr. Octavio Reza Work Phone: 4(484)410-914674 [place] [address] 11-04-2022 21:00-0400 SaO2% (BldA) [Mass fraction] 98 % Dr. Octavio Reza Work Phone: 1(087)564-641974 [place] [address] 11-04-2022 21:00-0400 Systolic blood pressure 147 mm[Hg] Dr. Octavio Reza Work Phone: 1(000)251-074807 [place] [address] 11-04-2022 17:59-0400 Body height 175.[address] Octavio Reza Work Phone: 5(992)868-012807 [place] [address] 11-04-2022 17:59-0400 Body mass index (BMI) [Ratio] 49.6 kg/m2 Dr. Octavio Reza Work Phone: 7(895)234-120707 [place] [address] 11-04-2022 17:59-0400 Body temperature 98.3 [degF] Dr. Octavio Reza Work Phone: 4(849)635-419207 [place] [address] 11-04-2022 17:59-0400 Body weight 152.[address] Octavio Reza Work Phone: 2(969)417-481007 [place] [address] 10-11-2022 20:32-0400 Diastolic blood pressure 57 mm[Hg] Dr. Octavio Reza Work Phone: 1(440)816-620207 [place] [address] 10-11-2022 20:32-0400 Heart rate 76 /min Dr. Octavio Reza Work Phone: 8(585)765-904507 [place] [address] 10-11-2022 20:32-0400 Respiratory rate 14 /min Dr. Octavio Reza Work Phone: 9(175)177-992207 [place] [address] 10-11-2022 20:32-0400 SaO2% (BldA) [Mass fraction] 98 % Dr. Octavio Reza Work Phone: 2(291)688-660507 [place] [address] 10-11-2022 20:32-0400 Systolic blood pressure 154 mm[Hg] Dr. Octavio Reza Work Phone: 2(140)391-295507 [place] [address] 10-11-2022 20:00-0400 Inhaled oxygen flow rate 1 L/min Dr. Octavio Reza Work Phone: 4(810)844-529407 [place] [address] 10-11-2022 16:10-0400 Body mass index (BMI) [Ratio] 50.3 kg/m2 Dr. Octavio Reza Work Phone: 0(464)025-892907 [place] [address] 10-11-2022 16:10-0400 Body weight 154.[address] Octavio Reza Work Phone: 3(006)492-873707 [place] [address] 10-11-2022 14:10-0400 Body height 175.[address] Octavio Reza Work Phone: [facility] 10-11-2022 14:10-0400 Body temperature 97.5 [degF] Dr. Octavio Reza Work Phone: [facility] 10-05-2022 12:57-0400 Body height 175.3 cm Davon Narda CORRECTIONAL CAPTAIN.COMPUTER NUMERICAL CONTROL PROGRAMMER Work Phone: [facility] 10-05-2022 12:57-0400 Body temperature 97.39 [degF] Davon Narda CORRECTIONAL CAPTAIN.COMPUTER NUMERICAL CONTROL PROGRAMMER Work Phone: [facility] 10-05-2022 12:57-0400 Body weight 151.05 kg Davon Narda CORRECTIONAL CAPTAIN.COMPUTER NUMERICAL CONTROL PROGRAMMER Work Phone: [facility] 10-05-2022 12:57-0400 Diastolic blood pressure 62 mm[Hg] Davon Narda CORRECTIONAL CAPTAIN.COMPUTER NUMERICAL CONTROL PROGRAMMER Work Phone: [facility] 10-05-2022 12:57-0400 Heart rate 71 /min Davon Narda CORRECTIONAL CAPTAIN.COMPUTER NUMERICAL CONTROL PROGRAMMER Work Phone: [facility] 10-05-2022 12:57-0400 Respiratory rate 16 /min Davon Narda CORRECTIONAL CAPTAIN.COMPUTER NUMERICAL CONTROL PROGRAMMER Work Phone: [facility] 10-05-2022 12:57-0400 SaO2% (BldA) [Mass fraction] 97 % Davon Narda CORRECTIONAL CAPTAIN.COMPUTER NUMERICAL CONTROL PROGRAMMER Work Phone: [facility] 10-05-2022 12:57-0400 Systolic blood pressure 138 mm[Hg] Davon Narda CORRECTIONAL CAPTAIN.COMPUTER NUMERICAL CONTROL PROGRAMMER Work Phone: [facility] 10-01-2022 16:38-0400 Diastolic blood pressure 64 mm[Hg] Dr. Octavio Reza Work Phone: [facility] 10-01-2022 16:38-0400 Systolic blood pressure 143 mm[Hg] Dr. Octavio Reza Work Phone: [facility] 10-01-2022 16:37-0400 Heart rate 75 /min Dr. Octavio Reza Work Phone: [facility] 10-01-2022 16:37-0400 Respiratory rate 16 /min Dr. Octavio Reza Work Phone: [facility] 10-01-2022 16:37-0400 SaO2% (BldA) [Mass fraction] 97 % Dr. Octavio Reza Work Phone: [facility] 10-01-2022 14:21-0400 Body mass index (BMI) [Ratio] 49.4 kg/m2 Dr. Octavio Reza Work Phone: [facility] 10-01-2022 14:21-0400 Body weight 151.[address] Octavio Reza Work Phone: [facility] 10-01-2022 13:50-0400 Body height 175.[address] Octavio Reza Work Phone: [facility] 10-01-2022 13:50-0400 Body temperature 97.5 [degF] Dr. Octavio Reza Work Phone: [facility] 10-01-2022 13:50-0400 Inhaled oxygen flow rate 1 L/min Dr. Octavio Reza Work Phone: [facility] 09-07-2022 18:00-0500 Diastolic blood pressure 64 mm[Hg] Octavio Reza MD Work Phone: [facility] 09-07-2022 18:00-0500 Systolic blood pressure 144 mm[Hg] Octavio Reza MD Work Phone: [facility] 09-07-2022 17:29-0500 Body temperature 97.9 [degF] Octavio Reza MD Work Phone: [facility] 09-07-2022 17:29-0500 Heart rate 77 /min Octavio Reza MD Work Phone: [facility] 09-07-2022 17:29-0500 Respiratory rate 18 /min Octavio Reza MD Work Phone: [facility] 09-07-2022 17:29-0500 SaO2% (BldA) [Mass fraction] 98 % Octavio Reza MD Work Phone: [facility] 08-17-2022 15:59-0500 Body temperature 98.2 [degF] Octavio Reza MD Work Phone: [facility] 08-17-2022 15:59-0500 Diastolic blood pressure 68 mm[Hg] Octavio Reza MD Work Phone: [facility] 08-17-2022 15:59-0500 Heart rate 61 /min Octavio Reza MD Work Phone: [facility] 08-17-2022 15:59-0500 Respiratory rate 18 /min Octavio Reza MD Work Phone: [facility] 08-17-2022 15:59-0500 SaO2% (BldA) [Mass fraction] 98 % Octavio Reza MD Work Phone: [facility] 08-17-2022 15:59-0500 Systolic blood pressure 120 mm[Hg] Octavio Reza MD Work Phone: [facility] 08-02-2022 13:25-0500 Body temperature 98.9 [degF] Dr. Octavio Reza Work Phone: [facility] 08-02-2022 13:25-0500 Diastolic blood pressure 61 mm[Hg] Dr. Octavio Reza Work Phone: [facility] 08-02-2022 13:25-0500 Heart rate 75 /min Dr. Octavio Reza Work Phone: [facility] 08-02-2022 13:25-0500 Inhaled oxygen flow rate 4 L/min Dr. Octavio Reza Work Phone: [facility] 08-02-2022 13:25-0500 Respiratory rate 17 /min Dr. Octavio Reza Work Phone: [facility] 08-02-2022 13:25-0500 SaO2% (BldA) [Mass fraction] 95 % Dr. Octavio Reza Work Phone: [facility] 08-02-2022 13:25-0500 Systolic blood pressure 148 mm[Hg] Dr. Octavio Reza Work Phone: [facility] 08-01-2022 11:18-0500 Body height 176.[address] Octavio Reza Work Phone: 9(266)284-620274 [place] [address] 08-01-2022 11:18-0500 Body weight 149.[address] Octavio Reza Work Phone: 0(096)900-135507 [place] [address] 07-31-2022 23:29-0500 Body mass index (BMI) [Ratio] 47.9 kg/m2 Dr. Octavio Reza Work Phone: 7(919)137-388097 [address] 07-31-2022 22:25-0500 Body temperature 98.6 [degF] Dr. Octavio Reza Work Phone: [facility] Work Phone: 07-31-2022 22:25-0500 Diastolic blood pressure 50 mm[Hg] Dr. Octavio Reza Work Phone: [facility] Work Phone: 07-31-2022 22:25-0500 Heart rate 82 /min Dr. Octavio Reza Work Phone: [facility] Work Phone: 07-31-2022 22:25-0500 Inhaled oxygen flow rate 2 L/min Dr. Octavio Reza Work Phone: [facility] Work Phone: 07-31-2022 22:25-0500 Respiratory rate 20 /min Dr. Octavio Reza Work Phone: [facility] Work Phone: 07-31-2022 22:25-0500 SaO2% (BldA) [Mass fraction] 91 % Dr. Octavio Reza Work Phone: [facility] Work Phone: 07-31-2022 22:25-0500 Systolic blood pressure 142 mm[Hg] Dr. Octavio Reza Work Phone: [facility] Work Phone: 07-31-2022 17:52-0500 Body height 175.[address] Octavio Reza Work Phone: [facility] Work Phone: 07-31-2022 17:52-0500 Body mass index (BMI) [Ratio] 49.1 kg/m2 Dr. Octavio Reza Work Phone: [facility] Work Phone: 07-31-2022 17:52-0500 Body weight 151.[address] Octavio Reza Work Phone: [facility] Work Phone: 07-24-2022 09:31-0500 Inhaled oxygen flow rate 92 L/min Dr. Octavio Reza Work Phone: [facility] 07-24-2022 09:31-0500 SaO2% (BldA) [Mass fraction] 2 % Dr. Octavio Reza Work Phone: [facility] 07-24-2022 09:09-0500 Diastolic blood pressure 49 mm[Hg] Dr. Octavio Reza Work Phone: [facility] 07-24-2022 09:09-0500 Heart rate 84 /min Dr. Octavio Reza Work Phone: [facility] 07-24-2022 09:09-0500 Systolic blood pressure 127 mm[Hg] Dr. Octavio Reza Work Phone: [facility] 07-24-2022 09:03-0500 Body temperature 98.3 [degF] Dr. Octavio Reza Work Phone: [facility] 01-07-2023 09:03-0500 Respiratory rate 18 /min Dr. Octavio Reza Work Phone: [facility] 07-23-2022 15:10-0500 Body height 175.[address] Octavio Reza Work Phone: [facility] Work Phone: 07-23-2022 15:10-0500 Body weight 155.[address] Octavio Reza Work Phone: 1(092)319-868997 [address] 07-19-2022 23:30-0500 Inhaled oxygen concentration 35 % Dr. Octavio Reza Work Phone: 7(054)323-466707 [place] [address] 07-18-2022 02:48-0500 Body mass index (BMI) [Ratio] 50.7 kg/m2 Dr. Octavio Reza Work Phone: 1(818)249-082307 [place] [address] 07-14-2022 14:59-0500 Body temperature 98.3 [degF] Dr. Octavio Reza Work Phone: 1(868)[phone] [place] [address] 07-14-2022 14:59-0500 Diastolic blood pressure 65 mm[Hg] Dr. Octavio Reza Work Phone: 1(605)[phone] [place] [address] 07-14-2022 14:59-0500 Heart rate 88 /min Dr. Octavio Reza Work Phone: 7(888)[phone] [place] [address] 07-14-2022 14:59-0500 Inhaled oxygen flow rate 2 L/min Dr. Octavio Reza Work Phone: 0(343)[phone] [place] [address] 07-14-2022 14:59-0500 Respiratory rate 18 /min Dr. Octavio Reza Work Phone: 1(441)[phone] [place] [address] 07-14-2022 14:59-0500 SaO2% (BldA) [Mass fraction] 95 % Dr. Octavio Reza Work Phone: 9(375)[phone] [place] [address] 07-14-2022 14:59-0500 Systolic blood pressure 153 mm[Hg] Dr. Octavio Reza Work Phone: 1(424)[phone] [place] [address] 07-12-2022 12:45-0500 Body weight 152.[address] Octavio Reza Work Phone: [facility] 07-10-2022 18:33-0500 Body mass index (BMI) [Ratio] 49.6 kg/m2 Dr. Octavio Reza Work Phone: [facility] 07-10-2022 17:47-0500 Inhaled oxygen flow rate 2 L/min Dr. Octavio Reza Work Phone: [facility] Work Phone: 07-10-2022 17:47-0500 SaO2% (BldA) [Mass fraction] 93 % Dr. Octavio Reza Work Phone: [facility] Work Phone: 07-10-2022 17:25-0500 Body temperature 98.8 [degF] Dr. Octavio Reza Work Phone: [facility] Work Phone: 07-10-2022 17:25-0500 Diastolic blood pressure 57 mm[Hg] Dr. Octavio Reza Work Phone: [facility] Work Phone: 07-10-2022 17:25-0500 Heart rate 94 /min Dr. Octavio Reza Work Phone: [facility] Work Phone: 07-10-2022 17:25-0500 Respiratory rate 28 /min Dr. Octavio Reza Work Phone: [facility] Work Phone: 07-10-2022 17:25-0500 Systolic blood pressure 151 mm[Hg] Dr. Octavio Reza Work Phone: [facility] Work Phone: 07-10-2022 14:16-0500 Body height 175.[address] Octavio Reza Work Phone: [facility] Work Phone: 07-10-2022 14:16-0500 Body mass index (BMI) [Ratio] 49.6 kg/m2 Dr. Octavio Reza Work Phone: [facility] Work Phone: 07-10-2022 14:16-0500 Body weight 152.[address] Octavio Reza Work Phone: [facility] Work Phone: 06-22-2022 10:54-0500 Body mass index (BMI) [Ratio] 51.5 kg/m2 Dr. Octavio Reza Work Phone: [facility] 06-22-2022 10:54-0500 Body weight 158.[address] Octavio Reza Work Phone: [facility] 06-22-2022 10:54-0500 Diastolic blood pressure 70 mm[Hg] Dr. Octavio Reza Work Phone: [facility] 06-22-2022 10:54-0500 Heart rate 58 /min Dr. Octvaio Reza Work Phone: [facility] 06-22-2022 10:54-0500 Respiratory rate 18 /min Dr. Octavio Reza Work Phone: [facility] 06-22-2022 10:54-0500 SaO2% (BldA) [Mass fraction] 96 % Dr. Octavio Reza Work Phone: [facility] 06-22-2022 10:54-0500 Systolic blood pressure 129 mm[Hg] Dr. Octavio Reza Work Phone: [facility] 05-18-2022 09:19-0400 Diastolic blood pressure 80 mm[Hg] Octavio Reza MD Work Phone: [facility] 05-18-2022 09:19-0400 Heart rate 55 /min Octavio Reza MD Work Phone: [facility] 05-18-2022 09:19-0400 SaO2% (BldA) [Mass fraction] 98 % Octavio Reza MD Work Phone: [facility] 05-18-2022 09:19-0400 Systolic blood pressure 128 mm[Hg] Octavio Reza MD Work Phone: [facility] 02-15-2022 14:44-0400 Body weight 153.77 kg Lydia Grande CORRECTIONAL CAPTAIN.VP CUSTOMER SERVICE Work Phone: [facility] 02-15-2022 14:44-0400 Diastolic blood pressure 60 mm[Hg] Lydia Grande CORRECTIONAL CAPTAIN.VP CUSTOMER SERVICE Work Phone: [facility] 02-15-2022 14:44-0400 Heart rate 63 /min Lydia Grande CORRECTIONAL CAPTAIN.VP CUSTOMER SERVICE Work Phone: [facility] 02-15-2022 14:44-0400 Respiratory rate 16 /min Lydia Grande CORRECTIONAL CAPTAIN.VP CUSTOMER SERVICE Work Phone: [facility] 02-15-2022 14:44-0400 SaO2% (BldA) [Mass fraction] 96 % [facility]CTIONAL CAPTAIN.VP CUSTOMER SERVICE Work Phone: [facility] 02-15-2022 14:44-0400 Systolic blood pressure 144 mm[Hg] Lydia Grande CORRECTIONAL CAPTAIN.VP CUSTOMER SERVICE Work Phone: [facility] 02-11-2022 15:20-0400 Diastolic blood pressure 74 mm[Hg] Dr. Octavio Reza Work Phone: [facility] Work Phone: 02-11-2022 15:20-0400 Heart rate 63 /min Dr. Octavio Reza Work Phone: [facility] Work Phone: 02-11-2022 15:20-0400 Respiratory rate 16 /min Dr. Octavio Reza Work Phone: [facility] Work Phone: 02-11-2022 15:20-0400 SaO2% (BldA) [Mass fraction] 96 % Dr. Octavio Reza Work Phone: [facility] Work Phone: 02-11-2022 15:20-0400 Systolic blood pressure 154 mm[Hg] Dr. Octavio Reza Work Phone: [facility] Work Phone: 02-11-2022 14:20-0400 Body height 175.[address] Octavio Reza Work Phone: [facility] Work Phone: 02-11-2022 14:20-0400 Body mass index (BMI) [Ratio] 51.9 kg/m2 Dr. Octavio Reza Work Phone: [facility] Work Phone: 02-11-2022 14:20-0400 Body temperature 97 [degF] Dr. Octavio Reza Work Phone: [facility] Work Phone: 02-11-2022 14:20-0400 Body weight 159.[address] Octavio Reza Work Phone: [facility] Work Phone: 01-11-2022 14:59-0400 Body weight 153.32 kg Octavio Reza MD Work Phone: [facility] 01-11-2022 14:59-0400 Diastolic blood pressure 82 mm[Hg] Octavio Reza MD Work Phone: [facility] 01-11-2022 14:59-0400 Heart rate 68 /min Octavio Reza MD Work Phone: [facility] 01-11-2022 14:59-0400 SaO2% (BldA) [Mass fraction] 97 % Octavio Reza MD Work Phone: [facility] 01-11-2022 14:59-0400 Systolic blood pressure 152 mm[Hg] Octavio Reza MD Work Phone: [facility] 12-23-2021 16:18-0400 Body temperature 97.11 [degF] Guillermo Maurer MD Work Phone: [facility] 12-23-2021 16:18-0400 Body weight 151.05 kg Guillermo Maurer MD Work Phone: [facility] 12-23-2021 16:18-0400 Diastolic blood pressure 82 mm[Hg] Guillermo Maurer MD Work Phone: [facility] 12-23-2021 16:18-0400 Heart rate 72 /min Guillermo Maurer MD Work Phone: [facility] 12-23-2021 16:18-0400 Respiratory rate 16 /min Guillermo Maurer MD Work Phone: [facility] 12-23-2021 16:18-0400 Systolic blood pressure 154 mm[Hg] Guillermo Maurer MD Work Phone: [facility] 12-21-2021 11:21-0400 Body mass index (BMI) [Ratio] 50.1 kg/m2 Dr. Octavio Reza Work Phone: [facility] Work Phone: 12-21-2021 11:21-0400 Body weight 153.[address] Octavio Reza Work Phone: [facility] Work Phone: 12-21-2021 11:21-0400 Diastolic blood pressure 78 mm[Hg] Dr. Octavio Reza Work Phone: [facility] Work Phone: 12-21-2021 11:21-0400 Heart rate 59 /min Dr. Octavio Reza Work Phone: [facility] Work Phone: 12-21-2021 11:21-0400 Respiratory rate 18 /min Dr. Octavio Reza Work Phone: [facility] Work Phone: 12-21-2021 11:21-0400 SaO2% (BldA) [Mass fraction] 97 % Dr. Octavio Reza Work Phone: [facility] Work Phone: 12-21-2021 11:21-0400 Systolic blood pressure 160 mm[Hg] Dr. Octavio Reza Work Phone: [facility] Work Phone: 12-17-2021 12:44-0400 Body temperature 97.11 [degF] Wanda Praisler-Wood CORRECTIONAL CAPTAIN.COMPUTER NUMERICAL CONTROL PROGRAMMER Work Phone: [facility] 12-17-2021 12:44-0400 Diastolic blood pressure 88 mm[Hg] Wanda Praisler-Wood CORRECTIONAL CAPTAIN.COMPUTER NUMERICAL CONTROL PROGRAMMER Work Phone: [facility] 12-17-2021 12:44-0400 Heart rate 71 /min Wanda Praisler-Wood CORRECTIONAL CAPTAIN.COMPUTER NUMERICAL CONTROL PROGRAMMER Work Phone: [facility] 12-17-2021 12:44-0400 Respiratory rate 18 /min Wanda Praisler-Wood CORRECTIONAL CAPTAIN.COMPUTER NUMERICAL CONTROL PROGRAMMER Work Phone: [facility] 12-17-2021 12:44-0400 SaO2% (BldA) [Mass fraction] 96 % Wanda Praisler-Wood CORRECTIONAL CAPTAIN.COMPUTER NUMERICAL CONTROL PROGRAMMER Work Phone: [facility] 12-17-2021 12:44-0400 Systolic blood pressure 146 mm[Hg] Wanda Praisler-Wood CORRECTIONAL CAPTAIN.COMPUTER NUMERICAL CONTROL PROGRAMMER Work Phone: [facility] 10-29-2021 09:00-0400 Diastolic blood pressure 66 mm[Hg] Holland Carmichael MD Work Phone: [facility] 10-29-2021 09:00-0400 Heart rate 80 /min Holland Carmichael MD Work Phone: [facility] 10-29-2021 09:00-0400 Respiratory rate 20 /min Holland Carmichael MD Work Phone: [facility] 10-29-2021 09:00-0400 SaO2% (BldA) [Mass fraction] 93 % Holland Carmichael MD Work Phone: [facility] 10-29-2021 09:00-0400 Systolic blood pressure 142 mm[Hg] Holland Carmichael MD Work Phone: [facility] 10-29-2021 07:58-0400 Body temperature 97.59 [degF] Holland Carmichael MD Work Phone: [facility] 09-11-2021 11:56-0500 Diastolic blood pressure 72 mm[Hg] Octavio Reza MD Work Phone: [facility] 09-11-2021 11:56-0500 Systolic blood pressure 148 mm[Hg] Octavio Reza MD Work Phone: [facility] 09-11-2021 10:47-0500 Heart rate 62 /min Octavio Reza MD Work Phone: [facility] 11-22-2016 10:37-0400 BMI (Body Mass Index) 53.08 kg/m2 Lydia [employer] [employer] Work Phone: 11-22-2016 10:37-0400 BP Diastolic 68 mm[Hg] Lydia Cook [facility] Work Phone: 11-22-2016 10:37-0400 BP Systolic 150 mm[Hg] Lydia Cook [facility] Work Phone: 11-22-2016 10:37-0400 Pulse (Heart Rate) 60 /min Lydia Cook [facility] Work Phone: 11-22-2016 10:37-0400 Respiratory Rate 18 /min Lydia Cook [facility] Work Phone: 11-22-2016 10:37-0400 Weight 167.83 kg Lydia Cook [facility] Work Phone: 07-21-2015 13:03-0500 BMI (Body Mass Index) 50.21 kg/m2 Bettina Vaca RN [facility] Work Phone: 07-21-2015 13:03-0500 BP Diastolic 70 mm[Hg] Bettina Vaca RN [facility] Work Phone: 07-21-2015 13:03-0500 BP Systolic 146 mm[Hg] Bettina Vaca RN [facility] Work Phone: 07-21-2015 13:03-0500 BSA (Body Surface Area) 2.65 m2 Bettina Vcaa RN [facility] Work Phone: 07-21-2015 13:03-0500 Pulse (Heart Rate) 64 /min Bettina Vaca RN [facility] Work Phone: 07-21-2015 13:03-0500 Respiratory Rate 14 /min Bettina Vaca RN [facility] Work Phone: 07-21-2015 13:03-0500 Weight 158.76 kg Bettina Vaca RN [facility] Work Phone: 01-06-2015 15:20-0400 BMI (Body Mass Index) Bettina [facility] Work Phone: 03-15-2012 13:57-0400 Height 177.8 cm Bettina Vaca RN [facility] Work Phone: Encounters Encounter Date Encounter Type Care Provider Facility Start: 01-15-2025 End: 01-15-2025 ambulatory OCTAVIO REZA Facility:[facility] Start: 01-15-2025 End: 01-15-2025 Patient encounter procedure Octavio Reza MD Work Phone: [facility] [place] Comment on above: Medicare annual well ness visit, subsequent (Primary Dx); 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 Octavio Reza MD Work Phone: -[facility] Start: 01-08-2025 End: 01-08-2025 ambulatory OCTAVIO REZA Facility:[facility] Start: 01-04-2025 End: 01-04-2025 Dr. Zay Juan DO -Emergency Department Work Phone: Start: 01-04-2025 End: 01-04-2025 Emergency department patient visit Dr. Octavio Reza MD Work Phone: -Emergency Department Work Phone: Start: 12-19-2024 End: 12-19-2024 Dr[facility] Work Phone: Start: 12-19-2024 End: 12-19-2024 Emergency department patient visit Dr. Octavio Reza MD Work Phone: -Emergency Department Work Phone: Start: 12-19-2024 End: 12-21-2024 Telephone encounter Renetta Mcgee APRN.COMPUTER NUMERICAL CONTROL PROGRAMMER Work Phone: Endocrinology Comment on above: Patient Update; Retu rning Patient's Call Start: 12-18-2024 End: 12-18-2024 ambulatory OCTAVIO REZA Facility:[facility] Start: 12-18-2024 End: 12-18-2024 Patient encounter procedure Charis Lucas [facility] Work Phone: [facility] Comment on above: Type I diabetes chrissy itus with manifestations (HCC) (Primary Dx); 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) Start: 12-18-2024 End: 12-18-2024 Telemedicine consultation with patient Charis Lucas [facility] Work Phone: [facility] Start: 12-14-2024 End: 12-14-2024 Telephone encounter Octavio Reza MD Work Phone: [facility] [place] Comment on above: Patient Question Start: 12-12-2024 End: 12-12-2024 Telephone encounter Octavio Reza MD Work Phone: [facility] [place] Comment on above: Patient Question; Lo w heart rate Refill Request Start: 11-29-2024 End: 11-29-2024 Dr. S[facility]is [facility] Work Phone: Start: 11-29-2024 End: 11-29-2024 Emergency department patient visit Dr. Octavio Reza MD Work Phone: -Emergency Department Work Phone: Start: 11-15-2024 End: 11-15-2024 Patient encounter procedure Areli LOWRY -[facility] Work Phone: Start: 11-15-2024 End: 11-15-2024 Areli LOWRY -[facility] Work Phone: Start: 11-15-2024 End: 11-15-2024 ambulatory Octavio Jodi Rogersbeka [place] Start: 11-07-2024 End: 11-07-2024 ambulatory Eliza Gilliland RN Work Phone: Guest Associate Management Comment on above: Primary Care Coordin ator- Other (CDM chart review) Start: 11-06-2024 End: 11-06-2024 ambulatory OCTAVIO D SONIAAMPAS Facility:[facility] Start: 11-06-2024 End: 11-06-2024 Patient encounter procedure Charis Lucas [facility] Work Phone: [facility] Comment on above: Type I diabetes chrissy itus with manifestations (HCC) (Primary Dx) Start: 11-06-2024 End: 11-06-2024 Telemedicine consultation with patient [facility]is [facility] Work Phone: [facility] Start: 11-03-2024 End: 11-03-2024 Dr. Zay Juan DO -Emergency Department Work Phone: Start: 11-03-2024 End: 11-03-2024 Emergency department patient visit Dr. Octavio Reza MD Work Phone: -Emergency Department Work Phone: Start: 10-31-2024 End: 10-31-2024 Patient encounter procedure Renetta Mcgee CORRECTIONAL CAPTAIN.COMPUTER NUMERICAL CONTROL PROGRAMMER Work Phone: Endocrinology Comment on above: Type I diabetes chrissy itus with manifestations (HCC); Charcot foot due to diabetes mellitus Start: 10-31-2024 End: 10-31-2024 ambulatory RENETTA MCGEE Facility:[facility] Start: 10-29-2024 End: 10-29-2024 Telephone encounter Renetta Mcgee CORRECTIONAL CAPTAIN.COMPUTER NUMERICAL CONTROL PROGRAMMER Work Phone: Endocrinology Comment on above: Patient Update (Ongo ing high blood sugars) Start: 10-24-2024 End: 10-24-2024 Dr. [facility] Start: 10-24-2024 End: 10-24-2024 Emergency department patient visit Dr. Octavio Reza MD Work Phone: -Emergency Department Work Phone: Start: 10-19-2024 End: 10-22-2024 ambulatory Octavio Reza MD Work Phone: [facility] [place] Comment on above: High Blood Sugar; le ft leg pain Start: 10-19-2024 End: 10-22-2024 Telephone encounter Renetta Mcgee CORRECTIONAL CAPTAIN.COMPUTER NUMERICAL CONTROL PROGRAMMER Work Phone: Endocrinology Comment on above: Patient Question; Re questing a call back from nurse; Returning Patient's Call Start: 10-19-2024 End: 10-19-2024 Dr. Holland Sanches DO -Emergency Department Work Phone: Start: 10-19-2024 End: 10-19-2024 Emergency department patient visit Dr. Octavio Reza MD Work Phone: -Emergency Department Work Phone: Start: 10-15-2024 End: 10-15-2024 ambulatory OCTAVIO ROGERSBEKA Facility:[facility] Start: 10-15-2024 End: 10-15-2024 Office outpatient visit 25 minutes Octavio Reza MD Work Phone: [facility] [place] Comment on above: Type 1 diabetes chrissy itus with Charcot joint of foot (HCC) (Primary Dx); Primary insomnia; Anxiety state; Vitamin D deficiency; Constipation, unspecified constipation type; Psoriasis of scalp; Seborrheic dermatitis Start: 10-04-2024 End: 10-04-2024 Telephone encounter Lydia Grande APRPRIMITIVO Work Phone: [facility] [place] Comment on above: Constipation Start: 10-01-2024 End: 10-01-2024 ambulatory OCTAVIO Jodi REZA Facility:[facility] Start: 09-27-2024 End: 10-01-2024 Telephone encounter Octavio Reza MD Work Phone: [facility] [place] Comment on above: Patient Question Start: 09-26-2024 End: 09-26-2024 ambulatory OCTAVIO REZA Facility:[facility] Start: 09-26-2024 End: 09-26-2024 Office outpatient visit 25 minutes Octavio Reza MD Work Phone: [facility] [place] Comment on above: Acute diarrhea (Prim nancy Dx); 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 Abdulaziz Stratton [facility] Work Phone: Start: 09-23-2024 End: 09-23-2024 Emergency department patient visit Dr. Octavio Reza MD Work Phone: -Emergency Department Work Phone: Start: 09-23-2024 End: 09-23-2024 ambulatory Susana Fuentes RN NURSE KEY CUTTER Start: 09-23-2024 End: 09-23-2024 Patient encounter procedure Susana Fuentes RN NURSE [employer] C[employer] Comment on above: Clinical Update Start: 09-21-2024 End: 09-21-2024 ambulatory Tere Mcgrath RN NURSE [employer] C[employer] Comment on above: High Blood Sugar Start: 09-21-2024 End: 09-21-2024 Telephone encounter Octavio Reza MD Work Phone: [facility] [place] Comment on above: Patient Update Start: 09-21-2024 End: 09-21-2024 Dr. Holland Sanches DO -Emergency Department Work Phone: Start: 09-21-2024 End: 09-21-2024 Emergency department patient visit Dr. Octavio Reza MD Work Phone: -Emergency Department Work Phone: Start: 09-20-2024 End: 09-20-2024 Dr. Lars Dahl DO -[facility]gency [facility] Work Phone: Start: 09-20-2024 End: 09-20-2024 Emergency department patient visit Dr. Octavio Reza MD Work Phone: -Emergency Department Work Phone: Start: 09-13-2024 End: 09-13-2024 ambulatory Tierney Sun RN NURSE KEY CUTTER Start: 09-13-2024 End: 09-13-2024 Patient encounter procedure Tierney Sun RN NURSE KEY CUTTER Comment on above: Clinical Update Start: 09-10-2024 End: 09-11-2024 Telephone encounter Charis [facility] Work Phone: [facility] Comment on above: Patient Update Start: 09-10-2024 End: 09-10-2024 ambulatory OCTAVIO REZA Facility:[facility] Start: 09-10-2024 End: 09-10-2024 Patient encounter procedure Charis Lucas [facility] Work Phone: [facility] Comment on above: Type I diabetes chrissy itus with manifestations (HCC) (Primary Dx) Start: 09-10-2024 End: 09-10-2024 Telemedicine consultation with patient [facility] Work Phone: [facility] Start: 09-06-2024 End: 09-06-2024 Telephone encounter Octavio Reza MD Work Phone: [facility] [place] Comment on above: Patient Question Start: 09-04-2024 End: 09-05-2024 Telephone encounter Renetta Mcgee APRN.COMPUTER NUMERICAL CONTROL PROGRAMMER Work Phone: Endocrinology Comment on above: Results Start: 08-20-2024 End: 08-20-2024 ambulatory OCTAVIO REZA Facility:[facility] Start: 08-17-2024 End: 08-17-2024 ambulatory Phoebe Carrion [facility] [place] Start: 08-17-2024 End: 08-17-2024 Patient encounter procedure Phoebe Carrion MA [facility] Comment on above: Population Health Na vigation Outreach ([employer] High Risk - Attempt 1) Start: 08-09-2024 End: 08-09-2024 ambulatory Octavio Reza MD Work Phone: [facility] [place] Comment on above: Constipation Start: 08-08-2024 End: 09-25-2024 Telephone encounter Octavio Reza MD Work Phone: [facility] [place] Comment on above: Blood sugar test str ips PA Start: 08-01-2024 End: 08-01-2024 Telephone encounter Octvaio Reza MD Work Phone: [facility] [place] Comment on above: Patient Question Start: 07-31-2024 End: 07-31-2024 ambulatory OCTAVIO REZA Facility:[facility] Start: 07-31-2024 End: 07-31-2024 Patient encounter procedure [facility] Work Phone: [facility] Comment on above: Type I diabetes chrissy itus with manifestations (HCC) (Primary Dx) Start: 07-31-2024 End: 07-31-2024 Telemedicine consultation with patient Charis Saxenaclau [facility] Work Phone: [facility] Start: 07-28-2024 End: 07-28-2024 Emergency department patient visit Dr. Lars Dahl DO -Emergency Department Work Phone: Start: 07-27-2024 End: 07-27-2024 Refill Octavio Reza MD Work Phone: [facility] [place] Comment on above: Refill Request Start: 07-19-2024 End: 07-19-2024 Telephone encounter Octavio Reza MD Work Phone: [facility] [place] Comment on above: Patient Question Start: 07-16-2024 End: 07-16-2024 Telephone encounter Octavio Reza MD Work Phone: [facility] [place] Comment on above: Rx Refills Start: 07-03-2024 End: 07-03-2024 ambulatory OCTAVIO SCOTTGILBERT Facility:[facility] Start: 07-03-2024 End: 07-03-2024 Office outpatient visit 25 minutes Lydia Grande APRN.CNS Work Phone: [facility] [place] Comment on above: Essential hypertensi on (Primary Dx); 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 Eduardo Paz DO -Emergency Department Work Phone: Start: 06-29-2024 End: 07-02-2024 Telephone encounter Octavio Reza MD Work Phone: [facility] [place] Comment on above: Patient Update Start: 06-28-2024 End: 06-28-2024 ambulatory OCTAVIO Jodi SCOTTGILBERT Facility:[facility] Start: 06-26-2024 End: 06-28-2024 Telephone encounter Octavio Reza MD Work Phone: [facility] [place] Comment on above: Patient Update Start: 06-21-2024 End: 06-21-2024 ambulatory [facility] [place] Start: 06-21-2024 End: 06-21-2024 Patient encounter procedure Rama [facility] [place] Comment on above: Population Health Na vigation Outreach (AWV INITIATIVE) Start: 06-19-2024 End: 06-19-2024 ambulatory OCTAVIO D TALAMPAS Facility:[facility] Start: 06-19-2024 End: 06-20-2024 Patient encounter procedure Charis [facility] Work Phone: [facility] Comment on above: Type I diabetes chrissy itus with manifestations (HCC) (Primary Dx) Refill Request Start: 06-19-2024 End: 06-19-2024 Telemedicine consultation with patient Charis Lucas [facility] Work Phone: [facility] Start: 06-13-2024 End: 06-13-[address] Miguel Angel Bosch MD -[facility] Work Phone: Start: 06-13-2024 End: 06-13-2024 ambulatory Octavio Jodi Reza [place] Start: 06-11-2024 End: 06-11-2024 ambulatory OCTAVIO Jodi REZA Facility:[facility] Start: 06-11-2024 End: 06-11-2024 Office outpatient visit 25 minutes Octavio Reza MD Work Phone: [facility] [place] Comment on above: Type I diabetes chrissy itus with manifestations (HCC) (Primary Dx); Acute cystitis without hematuria; Primary insomnia; Labile blood glucose; Uncomplicated severe persistent asthma; Palpitations; Essential hypertension; Severe persistent asthma without complication; Stasis edema of both lower extremities Start: 06-08-2024 End: 06-08-2024 Emergency department patient visit Dr. Reyna Monzon DO -Emergency Department Work Phone: Start: 06-07-2024 ambulatory Ray Maradiaga Facility:[facility] Start: 06-07-2024 Non-patient / Non-visit Dr. Ray up MD -[facility] Start: 06-07-2024 ambulatory Miguel Angel Bosch Facility :[facility] Start: 06-07-2024 Non-patient / Non-visit Dr. Che Bosch MD -[facility] Work Phone: Start: 06-07-2024 ambulatory Octavio Reza [facility] y:[facility] Start: 06-07-2024 End: 06-07-2024 Patient encounter procedure Areli Estevez PA -Cardiovascular Services Work Phone: Start: 06-06-2024 End: 06-07-2024 ambulatory Federica Alonzo RN Work Phone: Guest Associate Management Comment on above: Bi-weekly outreach ( Recurring) for Chronic Disease Management Start: 05-31-2024 End: 06-01-2024 Telephone encounter Octavio Reza MD Work Phone: Internal Medicine [place] Comment on above: checking if lab work due Start: 05-27-2024 End: 05-27-2024 Emergency department patient visit Dr. Lars Dahl DO -Emergency Department Work Phone: Start: 05-25-2024 End: 06-27-2024 ambulatory Renetta Benjamin Cioce CORRECTIONAL CAPTAIN.COMPUTER NUMERICAL CONTROL PROGRAMMER Work Phone: Endocrinology Comment on above: elevated blood gluco se Start: 05-25-2024 End: 05-25-2024 Telephone encounter Renettacarter Pauloce CORRECTIONAL CAPTAIN.COMPUTER NUMERICAL CONTROL PROGRAMMER Work Phone: Endocrinology Comment on above: Patient Update Start: 05-25-2024 End: 05-25-2024 Emergency department patient visit Dr. Reyna Monzon DO -Emergency Department Work Phone: Start: 05-23-2024 End: 05-23-2024 ambulatory OCTAVIO REZA Facility:[facility] Start: 05-23-2024 End: 05-23-2024 Patient encounter procedure Renetta Sourav Cioce CORRECTIONAL CAPTAIN.COMPUTER NUMERICAL CONTROL PROGRAMMER Work Phone: Endocrinology Comment on above: Diabetes mellitus ty pe 1, controlled, without complications (HCC) (Primary Dx) Start: 05-22-2024 End: 05-22-2024 ambulatory Federica Alonzo RN Work Phone: Guest Associate Management Comment on above: Bi-weekly outreach ( Recurring) for Chronic Disease Management Start: 05-18-2024 End: 05-18-2024 Emergency department patient visit Holland Sanches Facility:[facility] Start: 05-10-2024 End: 05-11-2024 Telephone encounter Renetta Mcgee CORRECTIONAL CAPTAIN.COMPUTER NUMERICAL CONTROL PROGRAMMER Work Phone: Endocrinology Comment on above: Patient Update Start: 05-07-2024 End: 05-07-2024 ambulatory [facility] Facility:[facility] Start: 05-07-2024 End: 05-07-2024 Patient encounter procedure Davon Wolfe CORRECTIONAL CAPTAIN.COMPUTER NUMERICAL CONTROL PROGRAMMER Work Phone: Internal Medicine [place] Comment on above: Dental abscess (Prim nancy Dx); 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); PAC (premature atrial contraction); PVC (premature ventricular contraction) Start: 05-04-2024 End: 05-04-2024 Emergency department patient visit Mark Reddyo Facility:[facility] Start: 04-24-2024 End: 04-24-2024 ambulatory [facility] Facility:[facility] Start: 04-24-2024 End: 04-24-2024 Patient encounter procedure [facility] Work Phone: [facility] Comment on above: Type I diabetes chrissy itus with manifestations (HCC) (Primary Dx); Diabetes mellitus type 1, controlled, without complications (HCC) Start: 04-24-2024 End: 04-24-2024 Telemedicine consultation with patient [facility] Work Phone: [facility] Start: 04-19-2024 End: 04-19-2024 ambulatory Federica Alonzo RN Work Phone: Guest Associate Management Comment on above: Bi-weekly outreach ( Recurring) for Chronic Disease Management Start: 04-18-2024 End: 04-18-2024 Subsequent hospital visit by physician [facility] Work Phone: Radiology Comment on above: Acute cough [R05.1] Start: 04-18-2024 End: 04-18-2024 ambulatory [facility] Facility:[facility] Start: 04-18-2024 End: 04-18-2024 Patient encounter procedure Smiley Prieto CORRECTIONAL CAPTAIN.COMPUTER NUMERICAL CONTROL PROGRAMMER Work Phone: [facility] Comment on above: Acute cough (Primary Dx); URI, acute Start: 04-10-2024 End: 04-10-2024 ambulatory OCTAVIO Jodi [facility] Facility:[facility] Start: 04-10-2024 End: 04-10-2024 Patient encounter procedure [facility] Work Phone: [facility] Comment on above: Type I diabetes chrissy itus with manifestations (HCC) (Primary Dx) Start: 04-10-2024 End: 04-10-2024 Telemedicine consultation with patient [facility] Work Phone: [facility] Start: 04-09-2024 End: 04-09-2024 Orders Only Renetta Mcgee APRN.COMPUTER NUMERICAL CONTROL PROGRAMMER Work Phone: Endocrinology Comment on above: Medical Nutrition Th erapy (Type 1 Diabetes) Start: 04-04-2024 End: 04-04-2024 ambulatory Federica Alonzo RN Work Phone: Guest Associate Management Comment on above: Initial enrollment o [facility] for Chronic Disease Management Start: 03-30-2024 End: 03-30-2024 Patient encounter procedure Pulm Lab [facility] Work Phone: PULM LAB [facility] Comment on above: Moderate persistent asthma without complication (Primary Dx); Morbid obesity (HCC); THAIS (obstructive sleep apnea) Start: 03-30-2024 End: 03-30-2024 ambulatory Pulm Lab [facility] Work Phone: PULM LAB [facility] Comment on above: Spirometry Start: 03-23-2024 End: 03-23-2024 Refill Octavio Reza MD Work Phone: Internal Medicine [place] Comment on above: Refill Request Start: 03-23-2024 End: 03-23-2024 ambulatory Octavio Reza Facility:[facility] Start: 03-22-2024 End: 03-22-2024 Telephone encounter Sergo Perez RD Work Phone: Endocrinology Start: 03-15-2024 End: 03-15-2024 Telephone encounter Ariane Tesfaye CORRECTIONAL CAPTAIN.COMPUTER NUMERICAL CONTROL PROGRAMMER Work Phone: Pulmonary Medicine Comment on above: Symbicort needs auth orized Start: 03-14-2024 End: 03-14-2024 ambulatory Lydia Manuel RN Work Phone: Guest Associate Management Start: 03-12-2024 End: 03-12-2024 Telephone encounter Octavio Reza MD Work Phone: Internal Medicine [place] Comment on above: Medication Problem Start: 03-07-2024 End: 03-07-2024 Telephone encounter Jeannine Perkins MD Work Phone: Pulmonary Medicine Comment on above: Patient Update Start: 03-07-2024 End: 03-07-2024 ambulatory OCTAVIO REZA Facility:[facility] Start: 03-07-2024 End: 03-07-2024 Office outpatient visit 25 minutes Ariane Tesfaye CORRECTIONAL CAPTAIN.COMPUTER NUMERICAL CONTROL PROGRAMMER Work Phone: Pulmonary Medicine Comment on above: Mild persistent asth ma without complication (Primary Dx); Shortness of breath Start: 03-06-2024 End: 03-07-2024 Telephone encounter Octavio Reza MD Work Phone: Family Medicine [place] Comment on above: Medication Problem Start: 03-05-2024 End: 03-05-2024 Telephone encounter Octavio Reza MD Work Phone: Internal Medicine [place] Comment on above: Orders Start: 03-02-2024 End: 03-02-2024 Emergency department patient visit [place] Facility:[facility] Start: 02-28-2024 End: 02-28-2024 ambulatory OCTAVIO Jodi REZA Facility:[facility] Start: 02-28-2024 End: 02-28-2024 Patient encounter procedure [facility] Work Phone: [facility] Comment on above: Type I diabetes chrissy itus with manifestations (HCC) (Primary Dx) Start: 02-28-2024 End: 02-28-2024 Telemedicine consultation with patient [facility] Work Phone: [facility] Start: 02-20-2024 Telephone encounter Octavio carr MD Work Phone: Internal Medicine [place] Comment on above: Medication Problem Start: 02-15-2024 End: 02-15-20[facility] Start: 02-15-2024 End: 02-15-2024 Patient encounter procedure Renetta Benjamin Everardo CORRECTIONAL CAPTAIN.COMPUTER NUMERICAL CONTROL PROGRAMMER Work Phone: Endocrinology Comment on above: Diabetes mellitus ty pe 1, controlled, without complications (HCC) (Primary Dx) Start: 02-13-2024 End: 02-13-2024 ambulatory [facility] Facility:[facility] Start: 02-13-2024 End: 02-13-2024 Office outpatient [...] End: 02-06-2024 [facility] Start: 01-27-2024 End: 01-27-2024 ambulatory [facility] Facility:[facility] Start: 01-25-2024 Telephone encounter Octavio carr MD Work Phone: Internal Medicine [place] Comment on above: Orders (Lab Orders/) Start: 01-18-2024 End: 01-18-2024 Nursing evaluation of patient and report Tawanda Wolff RN Work Phone: Endocrinology Comment on above: Diabetes mellitus ty pe 1, controlled, without complications (HCC) Start: 01-18-2024 End: 01-18-2024 ambulatory OCTAVIO Jodi [facility] Facility:[facility] Start: 01-12-2024 End: 01-12-2024 Patient encounter procedure [facility] Work Phone: [facility] Comment on above: Type I diabetes chrissy itus with manifestations (HCC) (Primary Dx) Start: 01-12-2024 End: 01-12-2024 Telemedicine consultation with patient [facility] Work Phone: [facility] Start: 01-02-2024 End: 01-02-2024 Patient encounter procedure Tamika Morris MD Work Phone: [facility] Comment on above: Localized swelling, mass and lump, neck (Primary Dx); Cutaneous horn Start: 12-26-2023 Telephone encounter Octavio carr MD Work Phone: Internal Medicine [place] Comment on above: Patient Update and q uestion Start: 12-09-2023 Telephone encounter Renetta marquez CORRECTIONAL CAPTAIN.COMPUTER NUMERICAL CONTROL PROGRAMMER Work Phone: Endocrinology Comment on above: Patient Question Start: 12-07-2023 Telephone encounter Octavio carr MD Work Phone: Internal Medicine [place] Comment on above: FYI-No Action Needed Start: 12-07-2023 End: 12-07-2023 Patient encounter procedure Renetta Mcgee CORRECTIONAL CAPTAIN.COMPUTER NUMERICAL CONTROL PROGRAMMER Work Phone: Endocrinology Comment on above: Diabetes mellitus ty pe 1, controlled, without complications (HCC) (Primary Dx); 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) Start: 12-05-2023 Telephone encounter Octavio carr MD Work Phone: Family Medicine [place] Comment on above: Patient Question Start: 12-02-2023 Telephone encounter Octavio carr MD Work Phone: Internal Medicine [place] Comment on above: Patient Update Start: 11-28-2023 End: 11-29-2023 Emergency department patient visit Dr. Octavio Reza Work Phone: [facility]-Emergency Department Work Phone: Start: 11-21-2023 Telephone encounter Davon Krishna er CORRECTIONAL CAPTAIN.COMPUTER NUMERICAL CONTROL PROGRAMMER Work Phone: Internal Medicine [place] Comment on above: Medication Question (side effects from insulin ) Start: 11-11-2023 Telephone encounter Davon Krishna er CORRECTIONAL CAPTAIN.COMPUTER NUMERICAL CONTROL PROGRAMMER Work Phone: Internal Medicine [place] Comment on above: Patient Update (call ing in BS) Start: 11-09-2023 End: 11-09-2023 Patient encounter procedure Davon Wolfe CORRECTIONAL CAPTAIN.COMPUTER NUMERICAL CONTROL PROGRAMMER Work Phone: Internal Medicine [place] Comment on above: Type I diabetes chrissy itus with manifestations (HCC) (Primary Dx); Encounter for medication management Start: 11-09-2023 Telephone encounter Octavio carr MD Work Phone: Internal Medicine [place] Comment on above: Appointment Start: 11-07-2023 End: 11-07-2023 Emergency department patient visit Dr. [facility]io [facility]: Start: 11-07-2023 Telephone encounter Octavio carr MD Work Phone: Internal Medicine [place] Comment on above: Patient Question Start: 11-06-2023 End: 11-07-2023 Emergency department patient visit Dr. [facility]avio Reza [facility] Work Phone: Start: 11-04-2023 Telephone encounter Octavio carr MD Work Phone: Internal Medicine [place] Comment on above: Blood sugar readings (Copy of recent BS readings attached to this encounter.) Start: 10-31-2023 ambulatory TAMIKA MORRIS [facility] ty:[facility] Start: 10-31-2023 Telephone encounter Tamika Arshad MD Work Phone: [facility] Comment on above: Results (US negative for DVT) Start: 10-31-2023 End: 10-31-2023 Subsequent hospital visit by physician [facility] Comment on above: Pain and swelling of right lower leg [M79.661, M79.89] Start: 10-31-2023 End: 10-31-2023 Patient encounter procedure Tamika Morris MD Work Phone: [facility] Comment on above: Pain and swelling of right lower leg (Primary Dx) Start: 10-28-2023 End: 10-28-2023 Emergency department patient visit Dr. Octavio Reza [facility] Work Phone: Start: 10-21-2023 Telephone encounter Octavio carr MD Work Phone: Internal Medicine [place] Comment on above: Blood Sugar Reading Start: 10-14-2023 Telephone encounter Octavio carr MD Work Phone: Internal Medicine [place] Comment on above: Blood sugar question Start: 10-03-2023 Telephone encounter Octavio carr MD Work Phone: Family Medicine [place] Comment on above: Medication Question Start: 10-01-2023 End: 10-01-2023 Emergency department patient visit Dr. Octavio Reza [facility] Work Phone: Start: 09-29-2023 Telephone encounter Octavio carr MD Work Phone: Internal Medicine [place] Comment on above: Orders Start: 09-29-2023 End: 09-29-[address] Octavio Reza Work Phone: [facility] Work Phone: Start: 09-26-2023 Telephone encounter Octavio carr MD Work Phone: Internal Medicine [place] Comment on above: Insurance Authorizat ion (glucose test strips /) Start: 09-23-2023 Refill Octavio coulter MD Work Phone: Internal Medicine [place] Comment on above: Refill Request Start: 09-22-2023 End: 09-22-2023 Patient encounter procedure Jeannine Perkins MD Work Phone: Pulmonary Medicine Comment on above: Mild persistent asth ma without complication (Primary Dx); Morbid obesity (HCC); THAIS (obstructive sleep apnea) Start: 09-21-2023 End: 09-21-2023 Office outpatient visit 25 minutes Octavio Reza MD Work Phone: Internal Medicine [place] Comment on above: PSVT (paroxysmal sup raventricular tachycardia) (HCC) (Primary Dx); PAC (premature atrial contraction); Primary insomnia Start: 09-21-2023 End: 09-21-2023 Emergency department patient visit [facility]Emergency Department Work Phone: Start: 09-16-2023 End: 09-16-2023 Non-patient / Non-visit Dr. Octavio Reza Work Phone: [facility] [facility] Work Phone: Start: 09-16-2023 End: 09-16-2023 ambulatory [facility] Work Phone: Start: 09-16-2023 End: 09-16-2023 Patient encounter procedure [facility]Cardiovascula r Services Work Phone: Start: 09-16-2023 End: 09-16-2023 Emergency department patient visit [facility]Emergency Department Work Phone: Start: 09-05-2023 Telephone encounter Lydia butler CORRECTIONAL CAPTAIN.VP CUSTOMER SERVICE Work Phone: Internal Medicine [place] Comment on above: Results Start: 09-01-2023 End: 09-01-2023 Office outpatient visit 25 minutes Lydia Grande CORRECTIONAL CAPTAIN.VP CUSTOMER SERVICE Work Phone: Internal Medicine [place] Comment on above: Polyarthralgia (Prim nancy Dx); 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); Vitamin D deficiency; Pain in finger of both hands Start: 06-23-2023 End: 06-23-2023 ambulatory Pulm Lab [facility] Work Phone: PUL[facility] Comment on above: Spirometry Start: 06-23-2023 End: 06-23-2023 Office outpatient visit 25 minutes Tierney Nunez PA-C Work Phone: Pulmonary Medicine Comment on above: Severe persistent as thma without complication (Primary Dx); Obesity, Class III, BMI 40-49.9 (morbid obesity) (HCC) Start: 06-23-2023 End: 06-23-2023 Patient encounter procedure Pulm Lab [facility] Work Phone: [facility] Start: 06-14-2023 Refill Octavio coulter MD Work Phone: Internal Medicine [place] Comment on above: Refill Request Start: 05-28-2023 End: 05-28-2023 Emergency department patient visit [facility]Emergency Department Work Phone: Start: 05-23-2023 End: 05-23-2023 Office outpatient visit 40 minutes Octavio Reza MD Work Phone: Internal Medicine [place] Comment on above: Type I diabetes chrissy [...] 03-22-[address] Octavio Reza Work Phone: [facility] Work Phone: Start: 03-22-2023 End: 03-22-[address] Octavio Reza Work Phone: [facility]-Outpatient Breast Imaging Work Phone: Start: 02-28-2023 Refill Octavio coulter MD Work Phone: Family Medicine [place] Comment on above: Refill Request Start: 02-21-2023 Telephone encounter Octavio carr MD Work Phone: Internal Medicine [place] Comment on above: patient asking for 3 D mamm order fax to [facility] Start: 02-13-2023 End: 02-13-2023 Emergency department patient visit Dr. Octavio Reza Work Phone: [facility]-Emergency Department Work Phone: Start: 01-17-2023 End: 01-17-2023 Office outpatient visit 40 minutes Octavio Reza MD Work Phone: Internal Medicine [place] Comment on above: Psoriasis of scalp ( Primary Dx); Seborrheic dermatitis; Essential hypertension; Palpitations; History of delirium Start: 12-07-2022 Non-patient / Non-visit Dr. Daniel Reza Work Phone: [facility] Start: 12-07-2022 End: 12-07-[address] Octavio Reza Work Phone: [facility] Work Phone: Start: 12-07-2022 End: 12-07-[address] Octavio Reza Work Phone: [facility]-Cardiovascula r Services Start: 11-22-2022 End: 11-22-[address] Octavio Reza Work Phone: [facility] Start: 11-04-2022 End: 11-04-2022 Emergency department patient visit Dr. Octavio Reza Work Phone: [facility]-Emergency Department Start: 10-11-2022 End: 10-11-2022 Emergency department patient visit Dr. Octavio Reza Work Phone: [facility]-Emergency Department Start: 10-05-2022 Telephone encounter Octavio carr MD Work Phone: Internal Medicine [place] Comment on above: Lump on anus Start: 10-05-2022 End: 10-05-2022 Patient encounter procedure Davon Wolfe APRN.COMPUTER NUMERICAL CONTROL PROGRAMMER Work Phone: Internal Medicine [place] Comment on above: Labial abscess (Prim nancy Dx); Bradycardia Start: 10-01-2022 Telephone encounter Octavio carr MD Work Phone: Internal Medicine [place] Comment on above: Patient Question Start: 10-01-2022 End: 10-01-2022 Emergency department patient visit Dr. Octavio Reza [facility] Start: 09-30-2022 Telephone encounter Octavio carr MD Work Phone: Internal Medicine [place] Comment on above: Medication Problem Start: 09-27-2022 Telephone encounter Trudy rabago APRN.COMPUTER NUMERICAL CONTROL PROGRAMMER Work Phone: OB/Gynecology Comment on above: Vulvar problem Start: 09-15-2022 Telephone encounter Octavio carr MD Work Phone: Internal Medicine [place] Comment on above: [facility] - [...] Phone: Internal Medicine [place] Comment on above: discharging from OT Start: 08-31-2022 Telephone encounter Octavio carr MD Work Phone: Internal Medicine [place] Comment on above: Home Health Point of Care Results Start: 08-20-2022 Telephone encounter Octavio carr MD Work Phone: Internal Medicine [place] Comment on above: Interium C OT POC Start: 08-17-2022 End: 08-17-2022 Office outpatient visit 40 minutes Octavio Reza MD Work Phone: Internal Medicine [place] Comment on above: Pneumonia due to COV ID-19 virus (Primary Dx); Hypoxemia; 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 Daniel Reza Work Phone: [facility] Inpatient Physicians Start: 08-01-2022 Non-patient / Non-visit Dr. Daniel Reza Work Phone: [facility] Start: 07-31-2022 End: 08-02-2022 Evaluation and management of inpatient Dr. Octavio Reza Work Phone: [facility] Start: 07-31-[address] Octavio Reza Work Phone: [facility] Work Phone: Start: 2022 Telephone encounter Octavio carr MD Work Phone: Internal [facility] Comment on above: Patient Update Start: 07-29-2022 Telephone encounter Claudia Shoemaker [facility] Comment on above: Social Work Services Occupational Therapy Plan of Care Start: 07-28-2022 Refill Octavio coulter MD Work Phone: Internal [facility] Comment on above: Refill Request Start: 07-26-2022 Telephone encounter Octavio carr MD Work Phone: Internal [facility] Comment on above: Physical Therapy Damari n of Care; FYI-No Action Needed Patient Update; Orde rs Start: 07-23-2022 Non-patient / Non-visit Dr. Daniel Reza Work Phone: [facility] Start: 07-22-2022 Non-patient / Non-visit Dr. Daniel Reza Work Phone: [facility] Start: 07-21-2022 End: 07-21-2022 Non-patient / Non-visit Dr. Octavio Reza Work Phone: [facility] Start: 07-21-2022 Non-patient / Non-visit Dr. Daniel Reza Work Phone: [facility] Start: 07-20-2022 Non-patient / Non-visit Dr. Daniel Reza Work Phone: [facility] Start: 07-19-2022 Non-patient / Non-visit Dr. Daniel Reza Work Phone: [facility] Start: 07-18-2022 Non-patient / Non-visit Dr. Daniel Reza Work Phone: [facility] Start: 07-18-2022 End: 07-24-2022 Evaluation and management of inpatient Dr. Octavio Reza Work Phone: [facility]-Progressive Care Unit Start: 07-16-2022 ambulatory Daina Kaye RN NURSE O N CALL Comment on above: High Blood Sugar Start: 07-16-2022 Telephone encounter Octavio carr MD Work Phone: Internal Medicine [place] Comment on above: Oxygen concern Start: 07-14-2022 Non-patient / Non-visit Dr. Daniel Reza Work Phone: [facility] Start: 07-13-2022 Non-patient / Non-visit Dr. Daniel Reza Work Phone: [facility] Start: 07-12-2022 Non-patient / Non-visit Dr. Daniel Reza Work Phone: [facility] Start: 07-11-2022 Non-patient / Non-visit Dr. Daniel Reza Work Phone: [facility] Start: 07-10-2022 Non-patient / Non-visit Dr. Daniel Reza Work Phone: [facility] Start: 07-10-2022 End: 07-14-2022 Evaluation and management of inpatient Dr. Octavio Reza Work Phone: [facility]-Medical Surgical 3 Start: 06-22-2022 End: 06-22-[address] Octavio Reza Work Phone: [facility] Start: 06-21-2022 Refill Octavio coulter MD Work Phone: Internal Medicine [place] Comment on above: Refill Request Start: 06-07-2022 ambulatory Narendra lombardo [facility] Work Phone: [facility] Start: 06-07-2022 Telephone encounter Octavio carr MD Work Phone: Internal Medicine [place] Comment on above: Patient Question Start: 05-18-2022 End: 05-18-2022 Office outpatient visit 25 minutes Octavio Reza MD Work Phone: Internal Medicine [place] Comment on above: Type I diabetes chrissy [...] 04-03-2022 ambulatory Latrell Medina RN NURS E KEY CUTTER Comment on above: Medication Question Start: 04-03-2022 Telephone encounter Octavio carr MD Work Phone: Internal Medicine [place] Comment on above: Medication Problem Start: 03-31-2022 Refill Octavio coulter MD Work Phone: [facility] [place] Comment on above: Refill Request; Medi cation Problem Start: 03-10-2022 End: 03-10-[address] Octavio Reza Work Phone: [facility] Work Phone: Start: 03-10-2022 End: 03-10-[address] Octavio Reza Work Phone: [facility]-Outpatient Breast Imaging Start: 02-15-2022 End: 02-15-2022 Patient encounter procedure Lydia Grande APRN.CNS Work Phone: [facility] [place] Comment on above: Palpitations (Primar y Dx); Encounter for immunization Start: 02-11-2022 End: 02-11-2022 Emergency department patient visit Dr. Octavio Reza Work Phone: [facility]-Emergency Department Start: 02-11-2022 Telephone encounter Octavio carr MD Work Phone: [facility] [place] Comment on above: Patient Update Start: 01-20-2022 Telephone encounter Octavio carr MD Work Phone: [facility] [place] Comment on above: Mammogram Order Start: 01-11-2022 End: 01-11-2022 Office outpatient visit 25 minutes Octavio Reza MD Work Phone: [facility] [place] Comment on above: Type I diabetes chrissy itus with manifestations (HCC) (Primary Dx); Lipomas; Vitamin D deficiency; Insomnia, unspecified type Start: 12-23-2021 End: 12-23-2021 Patient encounter procedure Guillermo Maurer MD Work Phone: [facility] [place] Comment on above: Pain of upper abdome n (Primary Dx); Alternating constipation and diarrhea Start: 12-21-2021 End: 12-21-[address] Octavio Reza Work Phone: [facility] Start: 12-17-2021 Telephone encounter Octavio carr MD Work Phone: [facility] [place] Comment on above: Patient Question Start: 12-17-2021 End: 12-17-2021 Subsequent hospital visit by physician Dominic [facility] [place] Work Phone: Radiology Comment on above: Pain of right upper extremity [M79.601] Start: 12-17-2021 End: 12-17-2021 Patient encounter procedure Wanda DejesusNicole CORRECTIONAL CAPTAINARELIS Work Phone: [facility] Comment on above: Pain of right upper extremity (Primary Dx) Start: 12-16-2021 End: 12-16-2021 Orders Only Jeannine Perkins MD Work Phone: Pulmonary Medicine Comment on above: Chest pain, unspecif ied type (Primary Dx) Refill Request Chest pain, unspecif ied type [R07.9] Start: 12-04-2021 Telephone encounter Octavio carr MD Work Phone: [facility] [place] Comment on above: Eye issue Start: 11-06-2021 [...] [place] Comment on above: Patient Question Start: 09-22-2021 Telephone encounter Holland avalos MD Work Phone: General Surgery Comment on above: 10-29-2021 Colon [facility] Start: 09-11-2021 End: 09-11-2021 Office outpatient visit 25 minutes Octavio Reza MD Work Phone: [facility] [place] Comment on above: Type I diabetes chrissy itus with manifestations (HCC) (Primary Dx); Essential hypertension; Morbid obesity with BMI of 45.0-49.9, adult (HCC); Vitamin D deficiency; Stasis edema of both lower extremities; Mixed hyperlipidemia; Colon cancer screening Procedures Date Procedure Procedure Detail Performing Clinician Start: 01-04-2025 X-ray of chest, PA a nd lateral views Dr. Octavio Reza MD Work Phone: Start: 01-04-2025 Blood count smear mc rscp w/mnl difrntl wbc count Dr. Octavio Reza MD Work Phone: Start: 01-04-2025 Mean corpuscular hem oglobin concentration determination Dr. Octavio Reza MD Work Phone: Start: 01-04-2025 Nucleated red blood cell count procedure Dr. Octavio Reza MD Work Phone: Start: 01-04-2025 Platelet mean volume determination Dr. Octavio Reza MD Work Phone: Start: 11-29-2024 Blood count smear mc rscp w/mnl difrntl wbc count Dr. Octavio Reza MD Work Phone: Start: 11-29-[address] Octavio Reza MD Work Phone: Start: 11-29-2024 Mean corpuscular hem oglobin concentration determination Dr. Octavio Reza MD Work Phone: Start: 11-29-2024 Nucleated red blood cell count procedure Dr. Octavio Reza MD Work Phone: Start: 11-29-2024 Platelet mean volume determination Dr. Octavio Reza MD Work Phone: Start: 11-29-2024 Urine microscopy: red cells Dr. Octavio Reza MD Work Phone: Start: 11-29-2024 Urnls dip stick/tabl et reagent auto microscopy Dr. Octavio Reza MD Work Phone: Start: 10-19-2024 Urine microscopy: red cells Dr. Octavio Reza MD Work Phone: Start: 10-19-2024 Urnls dip stick/tabl et reagent auto microscopy Dr. Octavio Reza MD Work Phone: Start: 10-19-2024 Blood count smear mc rscp w/mnl difrntl wbc count Dr. Octavio Reza MD Work Phone: Start: 10-19-[address] Octavio Reza MD Work Phone: Start: 10-19-2024 Mean corpuscular hem oglobin concentration determination Dr. Octavio Reza MD Work Phone: Start: 10-19-2024 Nucleated red blood cell count procedure Dr. Octavio Reza MD Work Phone: Start: 10-19-2024 Plain x-ray of pelvi s and lower extremity Dr. Octavio Reza MD Work Phone: Start: 10-19-2024 Platelet mean volume determination Dr. Octavio Reza MD Work Phone: Start: 09-23-2024 Blood count smear mc rscp w/mnl difrntl wbc count Dr. Octavio Reza MD Work Phone: Start: 09-23-[address] Octavio Reza MD Work Phone: Start: 09-23-2024 Mean corpuscular hem oglobin concentration determination Dr. Octavio Reza MD Work Phone: Start: 09-23-2024 Nucleated red blood cell count procedure Dr. Octavio Reza MD Work Phone: Start: 09-23-2024 Platelet mean volume determination Dr. Octavio Reza MD Work Phone: Start: 09-23-2024 Measurement of occul t blood in stool specimen using immunoassay Dr. Octavio Reza MD Work Phone: Start: 09-21-[address] Octavio Reza MD Work Phone: Start: 09-20-2024 Computed tomography of abdomen and pelvis with intravenous contrast Dr. Octavio Reza MD Work Phone: Start: 09-20-2024 Blood count smear mc rscp w/mnl difrntl wbc count Dr. Octavio Reza MD Work Phone: Start: 09-20-2024 Mean corpuscular hem oglobin concentration determination Dr. Octavio Reza MD Work Phone: Start: 09-20-2024 Nucleated red blood cell count procedure Dr. Octavio Reza MD Work Phone: Start: 09-20-2024 Platelet mean volume determination Dr. Octavio Reza MD Work Phone: Start: 09-20-2024 [address] lipa se measurement Dr. Octavio Reza MD Work Phone: Start: 09-20-2024 Urine microscopy: red cells Dr. Octavio Reza MD Work Phone: Start: 09-20-2024 Urnls dip stick/tabl et reagent auto microscopy Dr. Octavio Reza MD Work Phone: Start: 09-20-2024 SARS-CoV-2, Influenz a & RSV (PCR) Dr. Octavio Reza MD Work Phone: Start: 09-20-[address] Octavio Reza MD Work Phone: Start: 09-20-2024 Dr. Octavio nguyne MD Work Phone: Start: 07-02-2024 Plain chest [...] Hemoglobin A1c/Hemoglobin.total in Blood Renetta C Cioce CORRECTIONAL CAPTAIN.COMPUTER NUMERICAL CONTROL PROGRAMMER Work Phone: Start: 04-18-2024 Radiologic exam ches t 2 views Smiley Prieto CORRECTIONAL CAPTAIN.COMPUTER NUMERICAL CONTROL PROGRAMMER Work Phone: Start: 03-30-2024 Nitric oxide gas [...] Start: 06-23-2023 Nitric oxide gas determination Tierney LOWRY-C Work Phone: Start: 05-28-2023 Plain chest X-ray [...] MD Work Phone: Start: 03-10-2022 Screening mammography Jodi Reza Work Phone: Start: 12-17-2021 Radex humerus minimu m 2 views Wanda Phillips CORRECTIONAL CAPTAIN.COMPUTER NUMERICAL CONTROL PROGRAMMER Work Phone: Start: 12-16-2021 Radiologic exam ches [...] PA-C Work Phone: Start: 01-06-2015 End: 01-06-2015 PF Areli Estevez PA-C Work Phone: Start: 10-12-2013 End: 10-12-2013 Follow Up Appt 6 months Areli blount PA-C Work Phone: Start: 10-12-2013 End: 10-12-2013 Follow Up Appt Other Areli garza PA-C Work Phone: Start: 10-12-2013 End: 10-12-2013 PF Areli Estevez PA-C Work Phone: Start: 03-23-2013 [...] 03-23-2013 Remote 30 day ecg rev/report Chris segundo MD Bacteria identified in Blood by Culture Dr. Octavio Reza Work Phone: Bacteria identified in Blood by Culture Dr. Octavio Reza Work Phone: Investigation of tra nsfusion reaction Dr. Octavio Reza Work Phone: Investigation of tra nsfusion reaction Dr. Octavio Reza Work Phone: Respiratory [...] Activity Detail Author Start: 10-29-2026 Colonoscopy COLONOSCOPY [facility] Start: 10-29-2026 COLORECTAL CANCER SCREENING COLORECTAL CANCER SCREENING [facility] Start: 10-29-2026 Screening for malignant neoplasm of colon [facility] Start: 01-21-2026 End: 01-21-2026 Patient encounter procedure 01/21/2026 8:40 AM EDT Office Visit Internal Medicine [place] [address] [place] [id number] Octavio Reza MD [address] [place] [id number] Medicare Wellness [facility] [place] Comment on above: Medicare Wellness Start: 01-15-2026 Annual PCP Team Chronic Disease Visit Annual PCP Team Chronic Disease Visit [facility] Start: 01-15-2026 Diabetic foot examination Diabetic Foot Exam [facility] Start: 10-15-2025 Annual PCP Team Chronic Disease Visit Annual PCP Team Chronic Disease Visit [facility] Start: 10-01-2025 Hepatitis B screening Urine Albumin:Creatinine Ratio [facility] Start: 09-26-2025 Annual PCP Team Chronic Disease Visit Annual PCP Team Chronic Disease Visit [facility] Start: 08-20-2025 Hepatitis B screening Urine Albumin:Creatinine Ratio [facility] Start: 08-20-2025 Hepatitis B surface antibody level LDL Cholesterol [facility] Start: 07-24-2025 Glaucoma screening Dilated Retinal Exam [facility] Start: 07-23-2025 End: 07-23-2025 Patient encounter procedure 07/23/2025 9:40 AM EST Office Visit [facility] [place] [address] [place] [id number] Octavio Reza MD [address] [place] [address] 4 month f/up [facility] [place] Comment on above: 4 month f/up Start: 07-10-2025 Hemoglobin A1c measurement HbA1C [facility] Start: 06-11-2025 Annual PCP Team Chronic Disease Visit Annual PCP Team Chronic Disease Visit [facility] Start: 06-11-2025 BP Controlled (<130/80) BP Controlled (<130/80) [facility] Start: 05-07-2025 Annual PCP Team Chronic Disease Visit Annual PCP Team Chronic Disease Visit [facility] Start: 04-17-2025 RSV Vaccine (1 - 1-dose 75+ series) RSV Vaccine (1 - 1-dose 75+ series) [facility] Comment on above: Postponed from 2020 (Declined at t his time) Start: 03-18-2025 Influenza vaccination [facility] Start: 02-25-2025 End: 02-25-2025 Patient encounter procedure 02/25/2025 9:00 AM EDT [facility] [address] [phone] [facility] [address] [place] [address] DM f/up [facility] Comment on above: DM f/up Start: 02-17-2025 Hemoglobin A1c measurement HbA1C [facility] Start: 02-12-2025 Annual PCP Team Chronic Disease Visit Annual PCP Team Chronic Disease Visit [facility] Start: 02-12-2025 Covid-19 Vaccine ( season) Covid-19 Vaccine ( season) [facility] Comment on above: Postponed from 03/18/2023 (Declined at t his time) Start: 02-06-2025 End: 02-06-2025 Patient encounter procedure 02/06/2025 12:15 PM EDT Office Visit Endocrinology [address] [facility] [place] [address] Renetta Mcgee, CORRECTIONAL CAPTAIN.COMPUTER NUMERICAL CONTROL PROGRAMMER [address] [place] [address] 6 MTH F/U Endocrinology Comment on above: 6 MTH F/U Start: 01-26-2025 Hepatitis B surface antibody level LDL Cholesterol [facility] Start: 01-15-2025 End: 01-15-2025 Patient encounter procedure [facility] [place] Comment on above: 4 month follow up Medicare wellness Start: 01-14-2025 Influenza vaccination Influenza Vaccine (#1) Armida benjamin Comment on above: Postponed from 03/18/2024 (Declined at t his time) Start: 01-04-2025 [facility] Start: 01-04-2025 [facility] Start: 12-30-2024 End: 03-31-2025 25-hydroxyvitamin D3 [Mass/volume] in Serum or Plasma VITAMIN D 25 HYDROXY Lab Routine Vitamin D deficiency Expected: 12/30/2024 (Approximate), Expires: 03/31/2025 [facility] Comment on above: Expected: 12/30/2024 (Approximate), Expi res: 03/31/2025 Start: 12-30-2024 End: 03-31-2025 Hemoglobin A1c in Blood HEMOGLOBIN A1C Lab Routine 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) Expected: 12/30/2024 (Approximate), Expires: 03/31/2025 [facility] Work Phone: Comment on above: Expected: 12/30/2024 (Approximate), Expi res: 03/31/2025 Start: 12-26-2024 Glaucoma screening Dilated Retinal Exam [facility] Start: 12-19-2024 [facility] Start: 12-18-2024 End: 12-18-2024 Patient encounter procedure 12/18/2024 9:00 AM EDT [facility] [address] [phone] Charis Lucas, [facility] [address] [place] [address] DM f/up [facility] Comment on above: DM f/up Start: 11-29-2024 [facility] Start: 11-28-2024 End: 11-28-2024 Patient encounter procedure 11/28/2024 9:15 AM EDT Office Visit Endocrinology [address] [place] [address] Renetta Mcgee, CORRECTIONAL CAPTAIN.COMPUTER NUMERICAL CONTROL PROGRAMMER [address] [place] [address] 6 MTH F/U Endocrinology Comment on above: 6 MTH F/U Start: 11-20-2024 Hemoglobin A1c measurement HbA1C [facility] Start: 11-08-2024 Annual PCP Team Chronic Disease Visit Annual PCP Team Chronic Disease Visit [facility] Start: 11-06-2024 End: 11-06-2024 Patient encounter procedure 11/06/2024 9:00 AM EDT [facility] [address] [phone] [facility] [address] [place] [address] DM f/up [facility] Comment on above: DM f/up Start: 11-03-2024 [facility] Start: 10-31-2024 End: 10-31-2024 Patient encounter procedure 10/31/2024 3:15 PM EDT Office Visit Endocrinology [address] [place] [address] Renetta Mcgee APRN.COMPUTER NUMERICAL CONTROL PROGRAMMER [address] [place] [address] High blood sugars Endocrinology Comment on above: High blood sugars Start: 10-24-2024 [facility] Start: 10-19-2024 [facility] Start: 10-15-2024 End: 10-15-2024 Patient encounter procedure 10/15/2024 1:40 PM EDT Office Visit [facility] [place] [address] [place] [address] Octavio Reza MD [address] [place] [address] 4 month follow up [facility] [place] Comment on above: 4 month follow up Start: 10-01-2024 End: 10-01-2024 ambulatory 10/01/2024 9:00 AM EDT Education Endocrinology [address] [place] [address] Sergo Perez, RD [address] [address] 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) (review 09/13/24 tele enc) Endocrinology Comment on above: Type I diabetes mellitus with manifestat ions (HCC) (review 09/13/24 tele enc) Start: 09-28-2024 End: 09-28-2024 Patient encounter procedure 09/28/2024 2:45 PM EDT Office Visit Pulmonary Medicine [address] [place] [address] Jeannine Perkins MD [address] [facility] [place] [address] [facility] Comment on above: [place] Start: 09-28-2024 End: 09-28-2024 ambulatory 09/28/2024 2:30 PM EDT Procedure PULM LAB [facility] [address] [place] [address] Wstr, Pulm Lab [facility] [address] [place] [address] [place] [facility] Comment on above: [place] Start: 09-26-2024 End: 12-26-2024 CBC panel - Blood by Automated count COMPLETE BLOOD COUNT Lab Routine 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) Anemia, unspecified type Expected: 09/26/2024, Expires: 12/26/2024 [facility] Comment on above: Expected: 09/26/2024, Expires: Start: 09-26-2024 End: 12-26-2024 Comprehensive metabolic 2000 panel - Serum or Plasma COMPREHENSIVE METABOLIC PANEL Lab Routine 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) Anemia, unspecified type Expected: 09/26/2024, Expires: 12/26/2024 [facility] Work Phone: Comment on above: Expected: 09/26/2024, Expires: Start: 09-26-2024 End: 09-26-2024 Patient encounter procedure 09/26/2024 10:00 AM EDT Office Visit [facility] [place] [address] [place] [address] Octavio Reza MD [address] [place] [address] [facility] ER f/u 09-21-24 diarrhea [facility] [place] Comment on above: [facility] ER f/u 09-21-24 diarrhea Start: 09-21-2024 [facility] Start: 09-20-2024 [facility] Start: 09-20-2024 [facility] Start: 09-20-2024 Annual PCP Team Chronic Disease Visit Annual PCP Team Chronic Disease Visit [facility] Start: 09-20-2024 Bacteria identified in Urine by Culture Urine Culture [facility] Start: 09-10-2024 End: 09-10-2024 Patient encounter procedure 09/10/2024 9:00 AM EST [facility] [address] [phone] [facility] [address] [place] [address] DM f/up [facility] Comment on above: DM f/up Start: 09-02-2024 Hepatitis B screening Urine Albumin:Creatinine Ratio [facility] Start: 07-31-2024 End: 07-31-2024 Patient encounter procedure 07/31/2024 9:00 AM EST [facility] [address] [phone] [facility] [address] [place] [address] DM f/up [facility] Comment on above: DM f/up Start: 07-28-2024 [facility] Start: 07-18-2024 Advance Directive Discussion Advance Directive Discussion [facility] Start: 07-18-2024 End: 10-17-2024 Comprehensive metabolic 2000 panel - Serum or Plasma COMPREHENSIVE METABOLIC PANEL Lab Routine Diabetes mellitus type 1, controlled, without complications (HCC) Expected: 07/18/2024, Expires: 10/17/2024 [facility] Work Phone: Comment on above: Expected: 07/18/2024, Expires: Start: 07-18-2024 End: 10-17-2024 Hemoglobin A1c in Blood HEMOGLOBIN A1C Lab Routine Diabetes mellitus type 1, controlled, without complications (HCC) Expected: 07/18/2024, Expires: 10/17/2024 [facility] Comment on above: Expected: 07/18/2024, Expires: Start: 07-18-2024 End: 10-17-2024 LIPID PANEL, NONFASTING LIPID PANEL, NONFASTING Lab Routine Diabetes mellitus type 1, controlled, without complications (HCC) Expected: 07/18/2024, Expires: 10/17/2024 [facility] Comment on above: Expected: 07/18/2024, Expires: Start: 07-18-2024 End: 10-17-2024 Microalbumin/Creatinine [Mass Ratio] in Urine [facility] Comment on above: Expected: 07/18/2024, Expires: Expected: 07/18/2024 (Approximate), Expires: 10/17/2024 Start: 07-03-2024 End: 07-03-2024 Patient encounter procedure 07/03/2024 2:20 PM EST Office Visit [facility] [place] [address] [place] [address] Lydia Grande, JOSEFINA.VP [employer]OMER [employer]ICE [address] [place] [address] BP check, see 06/29/24 Phone Encounter for details [facility] [place] Comment on above: BP check, see 06/29/24 Phone Encounter f or details Start: 07-03-2024 [facility] Start: 06-29-2024 Glaucoma screening Dilated Retinal Exam [facility] Start: 06-27-2024 End: 09-26-2024 Bacteria identified in Urine by Culture URINE CULTURE Microbiology Routine Acute cystitis without hematuria Expected: 06/27/2024, Expires: 09/26/2024 [facility] Comment on above: Expected: 06/27/2024, Expires: Start: 06-27-2024 End: 09-26-2024 Urinalysis complete panel - Urine URINALYSIS, WITH MICROSCOPIC Lab Routine Acute cystitis without hematuria Expected: 06/27/2024, Expires: 09/26/2024 [facility] Work Phone: Comment on above: Expected: 06/27/2024, Expires: 5 Start: 06-19-2024 End: 06-19-2024 Patient encounter procedure 06/19/2024 9:00 AM EST [facility] [address] [phone] Charis Lucas, [facility] [address] [place], [place] [id number] DM f/up [facility] Comment on above: DM f/up Start: 06-15-2024 End: 06-15-2024 Patient encounter procedure Neurology Comment on above: THAIS (obstructive sleep apnea) [G47.33] Patient wants appt c anceled- THAIS (obstructive sleep apnea) [G47.33]- referral placeed states pt has not tolerated bipap, wears O2 @ hs, takes ambien, sleep study done at [facility] Start: 06-11-2024 End: 06-11-2024 Patient encounter procedure 06/11/2024 9:00 AM EST Office Visit [facility] [place] [address] [place], [place] [id number] Octavio Reza MD [address] [place], [place] [phone] 4 month follow up [facility] [place] Comment on above: 4 month follow up Start: 06-08-2024 [facility] Start: 06-08-2024 Hemoglobin A1c measurement HbA1C [facility] Start: 06-07-2024 End: 06-07-2024 Patient encounter procedure 06/07/2024 11:00 AM EST Office Visit Neurology [address] [place] [address] Rehana Osorio APRN.COMPUTER NUMERICAL CONTROL PROGRAMMER [address] [place] [address] THAIS (obstructive sleep apnea) [G47.33] Neurology Comment on above: THAIS (obstructive sleep apnea) [G47.33] Start: 05-27-2024 [facility] Start: 05-27-2024 [facility] Start: 05-25-2024 [facility] Start: 05-23-2024 Annual PCP Team Chronic Disease Visit Annual PCP Team Chronic Disease Visit [facility] Start: 05-23-2024 End: 05-23-2024 Patient encounter procedure 05/23/2024 12:45 PM EST Office Visit Endocrinology [address] [place] [address] Renetta Mcgee APRN.COMPUTER NUMERICAL CONTROL PROGRAMMER [address] [place] [address] 3 mo follow up Endocrinology Comment on above: 3 mo follow up Start: 05-18-2024 End: 08-17-2024 Comprehensive metabolic 2000 panel - Serum or Plasma COMPREHENSIVE METABOLIC PANEL Lab Routine Diabetes mellitus type 1, controlled, without complications (HCC) Expected: 05/18/2024, Expires: 08/17/2024 [facility] Work Phone: Comment on above: Expected: 05/18/2024, Expires: Start: 05-18-2024 End: 08-17-2024 Hemoglobin A1c in Blood HEMOGLOBIN A1C Lab Routine Diabetes mellitus type 1, controlled, without complications (HCC) Expected: 05/18/2024, Expires: 08/17/2024 [facility] Comment on above: Expected: 05/18/2024, Expires: Start: 05-18-2024 End: 08-17-2024 LIPID PANEL, NONFASTING LIPID PANEL, NONFASTING Lab Routine Diabetes mellitus type 1, controlled, without complications (HCC) Expected: 05/18/2024, Expires: 08/17/2024 [facility] Comment on above: Expected: 05/18/2024, Expires: 5 Start: 05-18-2024 End: 08-17-2024 Microalbumin/Creatinine [Mass Ratio] in Urine ALBUMIN/CREATININE RATIO, URINE Lab Routine Diabetes mellitus type 1, controlled, without complications (HCC) Expected: 05/18/2024, Expires: 08/17/2024 [facility] Comment on above: Expected: 05/18/2024, Expires: 5 Start: 05-16-2024 BP Controlled (<130/80) BP Controlled (<130/80) [facility] Start: 05-14-2024 End: 05-14-2024 Patient encounter procedure 05/14/2024 3:20 PM EDT Office Visit Cardiology [address] [place] [address] Anant Lees MD [address] [facility], [address] [place] [address] 1 year follow up Cardiology Comment on above: 1 year follow up Start: 04-24-2024 End: 04-24-2024 Patient encounter procedure 04/24/2024 9:30 AM EDT [facility] [address] [phone] [facility] [address] [place] [address] DM f/up Pharm [facility] Comment on above: DM f/up Start: 04-10-2024 End: 04-10-2024 Patient encounter procedure 04/10/2024 9:00 AM EDT [facility] [address] [phone] [facility] [address] [place] [address] DM f/up [facility] Comment on above: DM f/up Start: 04-09-2024 End: 04-09-2024 Follow-up encounter 04/09/2024 10:00 AM EDT Education Endocrinology [address] [place] [address] Sergo Perez, RD [address], [place] [phone] follow up Endocrinology Comment on above: follow up Start: 03-30-2024 End: 03-30-2024 Patient encounter procedure 03/30/2024 2:15 PM EDT Office Visit Pulmonary Medicine [address] [place] [address] Jeannine Perkins MD [address] [place] [address] KEZIA / 6 MTH F/U ASTHMA Pulmonary Medicine Comment on above: KEZIA / 6 MTH F/U ASTHMA Start: 03-30-2024 End: 03-30-2024 ambulatory 03/30/2024 2:00 PM EDT Procedure PULM LAB [facility] [address] [place] [address] [facility]str, Pulm Lab [facility] [address] [place] [address] KEZIA / 6 MTH F/U ASTHMA PULM LAB [facility] Comment on above: KEZIA / 6 MTH F/U ASTHMA Start: 03-22-2024 End: 03-22-2024 ambulatory 03/22/2024 9:00 AM EDT [facility] Endocrinology [address] [place] [address] Sergo Perez, RD [address], [place] [phone] Diabetes mellitus type 1, controlled, without complications (HCC) [E10.9], pt is acting for a phone call visit Endocrinology Comment on above: Diabetes mellitus type 1, controlled, wi thout complications (HCC) [E10.9], pt is acting for a phone call visit Start: 03-18-2024 Covid-19 Vaccine ( season) Covid-19 Vaccine ( season) [facility] Start: 03-18-2024 Covid-19 Vaccine ( season) Covid-19 Vaccine ( season) [facility] Start: 03-18-2024 Influenza vaccination [facility] Start: 03-01-2024 Hemoglobin A1c measurement HbA1C [facility] Start: 02-28-2024 End: 02-28-2024 Patient encounter procedure 02/28/2024 9:00 AM EDT [facility] Pharm [facility] [address] [id number] PrudenciomarianoJani [facility] [address] [place] [address] DM f/up [facility] Comment on above: DM f/up Start: 02-15-2024 End: 02-15-2024 Patient encounter procedure 02/15/2024 2:45 PM EDT Office Visit Endocrinology [address] [place] [address] Renetta Mcgee, CORRECTIONAL CAPTAIN.COMPUTER NUMERICAL CONTROL PROGRAMMER [address] [place] [address] 3 mo follow up Endocrinology Comment on above: 3 mo follow up Start: 02-13-2024 End: 02-13-2024 Patient encounter procedure 02/13/2024 9:20 AM EDT Office Visit Internal Medicine [facility] [address] [place] [address] Octavio Reza MD [address] [place] [address] 4 month follow up [facility] Comment on above: 4 month follow up Start: 02-07-2024 End: 02-07-2024 Patient encounter procedure 02/07/2024 9:20 AM EDT Office Visit Internal Medicine [facility] [address] [facility] [place], [place] [id number] Octavio Reza MD [address] [place] [address] 4 month follow up [facility] Comment on above: 4 month follow up Start: 01-26-2024 End: 04-26-2024 25-hydroxyvitamin D3 [Mass/volume] in Serum or Plasma VITAMIN D 25 HYDROXY Lab Routine Vitamin D deficiency Expected: 01/26/2024, Expires: 04/26/2024 [facility] Comment on above: Expected: 01/26/2024, Expires: Start: 01-26-2024 End: 04-26-2024 CBC W Auto Differential panel - Blood COMPLETE BLOOD COUNT AND DIFFERENTIAL Lab Routine 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) Expected: 01/26/2024, Expires: 04/26/2024 [facility] Comment on above: Expected: 01/26/2024, Expires: Start: 01-26-2024 End: 04-26-2024 Comprehensive metabolic 2000 panel - Serum or Plasma COMPREHENSIVE METABOLIC PANEL Lab Routine 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) Expected: 01/26/2024, Expires: 04/26/2024 [facility] Comment on above: Expected: 01/26/2024, Expires: Start: 01-26-2024 End: 04-26-2024 Lipid 1996 panel - Serum or Plasma LIPID PANEL BASIC Lab Routine 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) Expected: 01/26/2024, Expires: 04/26/2024 [facility] Work Phone: Comment on above: Expected: 01/26/2024, Expires: 4 Start: 01-18-2024 ANNUAL PCP TEAM CHRONIC DISEASE VISIT ANNUAL PCP TEAM CHRONIC DISEASE VISIT [facility] Start: 01-18-2024 BP CONTROLLED (<130/80) BP CONTROLLED (<130/80) [facility] Start: 01-18-2024 COVID-19 VACCINE (#1) COVID-19 VACCINE (#1) [facility] Comment on above: Postponed from 01/27/1946 (Declined at t his time) Start: 01-18-2024 End: 01-18-2024 Nursing evaluation of patient and report 01/18/2024 10:00 AM EDT Nurse Visit Endocrinology [address] [place] [address] Tawanda Wolff, RN [address] [phone] Diabetes mellitus type 1, controlled, without complications (HCC) [E10.9] Endocrinology Comment on above: Diabetes mellitus type 1, controlled, wi thout complications (HCC) [E10.9] Start: 01-12-2024 End: 01-12-2024 Patient encounter procedure 01/12/2024 9:00 AM EDT [facility] [address] [place] [id number] [facility] [address] [place], [place] [phone] Diabetes mellitus type 1, controlled, without complications (HCC) [E10.9] Pharm Med [facility] Comment on above: Diabetes mellitus type 1, controlled, wi thout complications (HCC) [E10.9] Start: 01-11-2024 End: 01-11-2024 Nursing evaluation of patient and report 01/11/2024 2:00 PM EDT Nurse Visit Endocrinology [address] [place] [address] Tawanda Wolff, RN [address] [phone] Diabetes mellitus type 1, controlled, without complications (HCC) [E10.9] Endocrinology Comment on above: Diabetes mellitus type 1, controlled, wi thout complications (HCC) [E10.9] Start: 12-07-2023 End: 03-07-2024 Glutamate decarboxylase 65 Ab [Units/volume] in Serum [facility] Comment on above: Expected: 12/07/2023, Expires: Start: 12-07-2023 End: 03-07-2024 Hemoglobin A1c in Blood [facility] Comment on above: Expected: 12/07/2023, Expires: 4 Start: 12-07-2023 End: 03-07-2024 Pancreatic islet cell Ab [Titer] in Serum [facility] Comment on above: Expected: 12/07/2023, Expires: Start: 12-07-2023 End: 12-07-2023 Patient encounter procedure 12/07/2023 10:15 AM EDT Office Visit Endocrinology [address] [place] [address] Renetta Mcgee, CORRECTIONAL CAPTAIN.COMPUTER NUMERICAL CONTROL PROGRAMMER [address] [place] [address] 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.8] Endocrinology Comment on above: Type I diabetes mellitus with manifestat ions (HCC) [E10.8] Start: 11-28-2023 [facility] Start: 11-15-2023 Hemoglobin A1c measurement HbA1C [facility] Start: 11-15-2023 Hemoglobin A1c/Hemoglobin.total in Blood HbA1C [facility] Start: 11-07-2023 [facility] Start: 11-06-2023 [facility] Start: 10-28-2023 [facility] Start: 10-06-2023 ANNUAL PCP TEAM CHRONIC DISEASE VISIT ANNUAL PCP TEAM CHRONIC DISEASE VISIT [facility] Start: 10-01-2023 [facility] Start: 09-21-2023 End: 12-21-2023 25-hydroxyvitamin D3 [Mass/volume] in Serum or Plasma VITAMIN D 25 HYDROXY Lab Routine Vitamin D deficiency Expected: 09/21/2023 (Approximate), Expires: 12/21/2023 [facility] Work Phone: Comment on above: Expected: 09/21/2023 (Approximate), Expi res: 12/21/2023 Start: 09-21-2023 ANNUAL PCP TEAM CHRONIC DISEASE VISIT ANNUAL PCP TEAM CHRONIC DISEASE VISIT [facility] Start: 09-21-2023 End: 12-21-2023 CBC panel - Blood by Automated count CBC Lab Routine Essential hypertension Expected: 09/21/2023 (Approximate), Expires: 12/21/2023 [facility] Work Phone: Comment on above: Expected: 09/21/2023 (Approximate), Expi res: 12/21/2023 Start: 09-21-2023 End: 12-21-2023 Comprehensive metabolic 2000 panel - Serum or Plasma COMP METABOLIC PANEL Lab Routine 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) Expected: 09/21/2023 (Approximate), Expires: 12/21/2023 [facility] Work Phone: Comment on above: Expected: 09/21/2023 (Approximate), Expi res: 12/21/2023 Start: 09-21-2023 End: 12-21-2023 Hemoglobin A1c in Blood HGB A1C Lab Routine 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) Expected: 09/21/2023 (Approximate), Expires: 12/21/2023 [facility] Work Phone: Comment on above: Expected: 09/21/2023 (Approximate), Expi res: 12/21/2023 Start: 09-21-2023 [facility] Start: 09-21-2023 [facility] Start: 09-16-2023 [facility] Start: 09-16-2023 Emergency department visit moderate severity EMERGENCY DEPT VISIT LOW MDM [facility] Start: 09-14-2023 Hepatitis B surface antibody level LDL CHOLESTEROL [facility] Start: 09-07-2023 ANNUAL PCP TEAM CHRONIC DISEASE VISIT ANNUAL PCP TEAM CHRONIC DISEASE VISIT [facility] Start: 09-01-2023 End: 12-01-2023 25-hydroxyvitamin D3 [Mass/volume] in Serum or Plasma [facility] Work Phone: Comment on above: Expected: 09/01/2023, Expires: 4 Start: 09-01-2023 End: 12-01-2023 ALBUMIN/CREAT RATIO RND UR ALBUMIN/CREAT RATIO RND UR Lab Routine 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) Expected: 09/01/2023, Expires: 12/01/2023 [facility] Work Phone: Comment on above: Expected: 09/01/2023, Expires: 4 Start: 09-01-2023 End: 12-01-2023 DORA BY IFA SCREEN [facility] Work Phone: Comment on above: Expected: 09/01/2023, Expires: Start: 09-01-2023 End: 12-01-2023 C reactive protein [Mass/volume] in Serum or Plasma [facility] Work Phone: Comment on above: Expected: 09/01/2023, Expires: 4 Start: 09-01-2023 End: 12-01-2023 Comprehensive metabolic 2000 panel - Serum or Plasma [facility] Work Phone: Comment on above: Expected: 09/01/2023, Expires: Start: 09-01-2023 End: 12-01-2023 Erythrocyte sedimentation rate [facility] Work Phone: Comment on above: Expected: 09/01/2023, Expires: Start: 09-01-2023 End: 12-01-2023 Hemoglobin A1c in Blood [facility] Work Phone: Comment on above: Expected: 09/01/2023, Expires: 4 Start: 09-01-2023 End: 12-01-2023 Lipid 1996 panel - Serum or Plasma LIPID PANEL BASIC Lab Routine 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) Expected: 09/01/2023, Expires: 12/01/2023 [facility] Work Phone: Comment on above: Expected: 09/01/2023, Expires: 4 Start: 09-01-2023 End: 12-01-2023 Rheumatoid factor [Units/volume] in Serum or Plasma [facility] Work Phone: Comment on above: Expected: 09/01/2023, Expires: 4 Start: 08-17-2023 ANNUAL PCP TEAM CHRONIC DISEASE VISIT ANNUAL PCP TEAM CHRONIC DISEASE VISIT [facility] Start: 08-17-2023 BP CONTROLLED (<130/80) BP CONTROLLED (<130/80) [facility] Start: 07-18-2023 Advance Directive Discussion Advance Directive Discussion [facility] Start: 05-28-2023 [facility] Start: 05-18-2023 ANNUAL PCP TEAM CHRONIC DISEASE VISIT ANNUAL PCP TEAM CHRONIC DISEASE VISIT [facility] Start: 03-18-2023 Covid-19 Vaccine ( season) Covid-19 Vaccine ( season) [facility] Start: 03-18-2023 Influenza vaccination [facility] Start: 03-14-2023 Hemoglobin A1c/Hemoglobin.total in Blood HBA1C [facility] Start: 01-11-2023 ANNUAL PCP TEAM CHRONIC DISEASE VISIT ANNUAL PCP TEAM CHRONIC DISEASE VISIT [facility] Start: 12-24-2022 Hepatitis B screening URINE ALBUMIN:CREATININE RATIO [facility] Start: 12-24-2022 Hepatitis B surface antibody level LDL CHOLESTEROL [facility] Start: 12-23-2022 ANNUAL PCP TEAM CHRONIC DISEASE VISIT ANNUAL PCP TEAM CHRONIC DISEASE VISIT [facility] Start: 11-04-2022 [facility] Start: 10-23-2022 ANNUAL PCP TEAM CHRONIC DISEASE VISIT ANNUAL PCP TEAM CHRONIC DISEASE VISIT [facility] Start: 10-11-2022 [facility] Start: 10-01-2022 Troponin I measurement [facility] Start: 10-01-2022 [facility] Start: 09-15-2022 End: 11-15-2022 25-hydroxyvitamin D3 [Mass/volume] in Serum or Plasma VITAMIN D 25 HYDROXY Lab Routine Vitamin D deficiency Expected: 09/15/2022 (Approximate), Expires: 11/15/2022 [facility] Work Phone: Comment on above: Expected: 09/15/2022 (Approximate), Expi res: 11/15/2022 Start: 09-15-2022 3 comp foot exam completed DIABETIC FOOT EXAM [facility] Comment on above: Postponed from 10/27/2021 (Declined at t his time) Start: 09-15-2022 End: 11-15-2022 Lipid 1996 panel - Serum or Plasma LIPID PANEL BASIC Lab Routine Mixed hyperlipidemia Expected: 09/15/2022 (Approximate), Expires: 11/15/2022 [facility] Work Phone: Comment on above: Expected: 09/15/2022 (Approximate), Expi res: 11/15/2022 Start: 09-11-2022 ANNUAL PCP TEAM CHRONIC DISEASE VISIT ANNUAL PCP TEAM CHRONIC DISEASE VISIT [facility] Start: 08-02-2022 Patient discharge [facility] Start: 08-02-2022 Speech therapy assessment [facility] Start: 08-01-2022 [facility] Start: 08-01-2022 Admission procedure [facility] Start: 08-01-2022 Incentive spirometry [facility] Start: 08-01-2022 Blood chemistry [facility] Work Phone: Start: 08-01-2022 CBC W Auto Differential panel - Blood [facility] Work Phone: Start: 08-01-2022 Inhalation therapy procedure [facility] Start: 07-31-2022 Following clinical pathway protocol [facility] Start: 07-31-2022 Assessment of risk of venous thromboembolism [facility] Start: 07-31-2022 Care regimes management [facility] Start: 07-31-2022 Insertion of catheter into peripheral vein [facility] Start: 07-31-2022 Oxygen therapy [facility] Start: 07-31-2022 Providing care according to standard [facility] Start: 07-31-2022 Provision of activity privileges [facility] Start: 07-31-2022 Referral to occupational therapist [facility] Start: 07-31-2022 Referral to service [facility] Start: 07-31-2022 [facility] Start: 07-31-2022 Verification routine [facility] Work Phone: Start: 07-31-2022 Admission procedure [facility] Start: 07-31-2022 [facility] Start: 07-31-2022 Patient referral to dietitian [facility] Start: 07-25-2022 [facility] Work Phone: Start: 07-24-2022 Patient discharge [facility] Start: 07-23-2022 Referral to service [facility] Start: 07-22-2022 [facility] Start: 07-20-2022 Referral to occupational therapist [facility] Start: 07-20-2022 Referral to service [facility] Start: 07-18-2022 ADVANCE DIRECTIVE DISCUSSION ADVANCE DIRECTIVE DISCUSSION [facility] Start: 07-18-2022 Methicillin resistant Staphylococcus aureus screening test [facility] Start: 07-18-2022 Following clinical pathway protocol [facility] Start: 07-18-2022 Assessment of risk of venous thromboembolism [facility] Start: 07-18-2022 Care regimes management [facility] Start: 07-18-2022 Elevation of head of bed [facility] Start: 07-18-2022 Incentive spirometry [facility] Start: 07-18-2022 Inhalation therapy procedure [facility] Start: 07-18-2022 Insertion of catheter into peripheral vein [facility] Start: 07-18-2022 Notification of physician [facility] Start: 07-18-2022 Oxygen therapy [facility] Start: 07-18-2022 Patient education [facility] Start: 07-18-2022 Physiotherapy of chest [facility] Start: 07-18-2022 Providing care according to standard [facility] Start: 07-18-2022 Provision of activity privileges [facility] Start: 07-18-2022 Referral to service [facility] Start: 07-18-2022 End: 07-18-2022 [facility] Start: 07-18-2022 Admission procedure [facility] Start: 07-18-2022 Dual pressure spontaneous ventilation support [facility] Start: 07-18-2022 Patient referral to dietitian [facility] Start: 07-14-2022 Patient discharge [facility] Start: 07-10-2022 Respiratory secretion precautions [facility] Start: 07-10-2022 Following clinical pathway protocol [facility] Start: 07-10-2022 Ambulation without limitation [facility] Start: 07-10-2022 Assessment of risk of venous thromboembolism [facility] Start: 07-10-2022 Care regimes management [facility] Start: 07-10-2022 Incentive spirometry [facility] Start: 07-10-2022 Insertion of catheter into peripheral vein [facility] Start: 07-10-2022 Oxygen therapy [facility] Start: 07-10-2022 Providing care according to standard [facility] Start: 07-10-2022 Viral nucleic acid assay [facility] Work Phone: Start: 07-10-2022 End: 07-10-2022 [facility] Start: 07-10-2022 Verification routine [facility] Work Phone: Start: 07-10-2022 Admission procedure [facility] Start: 07-10-2022 End: 07-11-2022 [facility] Start: 07-10-2022 Inhalation therapy procedure [facility] Start: 06-25-2022 Hemoglobin A1c/Hemoglobin.total in Blood HBA1C [facility] Start: 05-28-2022 Hepatitis C antibody, confirmatory test DILATED RETINAL EXAM [facility] Start: 05-25-2022 Hepatitis B screening URINE ALBUMIN:CREATININE RATIO [facility] Start: 05-11-2022 BP CONTROLLED (<130/80) BP CONTROLLED (<130/80) [facility] Start: 05-04-2022 Hepatitis B surface antibody level LDL CHOLESTEROL [facility] Start: 03-18-2022 Influenza vaccination INFLUENZA (#1) [facility] Start: 03-09-2022 FECAL OCCULT BLOOD FECAL OCCULT BLOOD [facility] Start: 03-09-2022 Screening for malignant neoplasm of colon Fecal Occult Blood [facility] Start: 03-02-2022 Hemoglobin A1c/Hemoglobin.total in Blood HBA1C [facility] Start: 01-12-2022 COVID-19 VACCINE (#1) COVID-19 VACCINE (#1) [facility] Comment on above: Postponed from 1950 (Declined at t his time) Start: 01-12-2022 COVID-19 VACCINE (1) COVID-19 VACCINE (1) [facility] Comment on above: Postponed from 1950 (Declined at t his time) Start: 01-12-2022 Urine microalbumin profile DTAP,TDAP,TD (1 - Tdap) [facility] Comment on above: Postponed from 1964 (Declined at t his time) Start: 12-24-2021 End: 02-23-2022 Amylase [Enzymatic activity/volume] in Serum or Plasma [facility] Work Phone: Comment on above: Expected: 12/24/2021, Expires: Start: 12-24-2021 End: 02-23-2022 Gamma glutamyl transferase [Enzymatic activity/volume] in Serum or Plasma [facility] Work Phone: Comment on above: Expected: 12/24/2021, Expires: Start: 12-24-2021 End: 02-23-2022 Lipase [Enzymatic activity/volume] in Serum or Plasma [facility] Work Phone: Comment on above: Expected: 12/24/2021, Expires: Start: 12-09-2021 End: 09-11-2022 ALBUMIN/CREAT RATIO RND UR ALBUMIN/CREAT RATIO RND UR Lab Routine 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) Expected: 12/09/2021 (Approximate), Expires: 09/11/2022 [facility] Work Phone: Comment on above: Expected: 12/09/2021 (Approximate), Expi res: 09/11/2022 Start: 12-09-2021 End: 09-11-2022 CBC panel - Blood by Automated count CBC Lab Routine 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) Essential hypertension Expected: 12/09/2021 (Approximate), Expires: 09/11/2022 [facility] Work Phone: Comment on above: Expected: 12/09/2021 (Approximate), Expi res: 09/11/2022 Start: 12-09-2021 End: 09-11-2022 Comprehensive metabolic 2000 panel - Serum or Plasma COMP METABOLIC PANEL Lab Routine 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) Essential hypertension Expected: 12/09/2021 (Approximate), Expires: 09/11/2022 [facility] Work Phone: Comment on above: Expected: 12/09/2021 (Approximate), Expi res: 09/11/2022 Start: 12-09-2021 End: 09-11-2022 Hemoglobin A1c/Hemoglobin.total in Blood HGB A1C Lab Routine 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) Expected: 12/09/2021 (Approximate), Expires: 09/11/2022 [facility] Work Phone: Comment on above: Expected: 12/09/2021 (Approximate), Expi res: 09/11/2022 Start: 12-09-2021 End: 09-11-2022 LIPID PANEL BASIC LIPID PANEL BASIC Lab Routine 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) Mixed hyperlipidemia Expected: 12/09/2021 (Approximate), Expires: 09/11/2022 [facility] Work Phone: Comment on above: Expected: 12/09/2021 (Approximate), Expi res: 09/11/2022 Start: 12-09-2021 End: 09-11-2022 VITAMIN D 25 HYDROXY VITAMIN D 25 HYDROXY Lab Routine Vitamin D deficiency Expected: 12/09/2021 (Approximate), Expires: 09/11/2022 [facility] Work Phone: Comment on above: Expected: 12/09/2021 (Approximate), Expi res: 09/11/2022 Start: 10-27-2021 3 comp foot exam completed DIABETIC FOOT EXAM [facility] Start: 10-27-2021 Diabetic foot examination Diabetic Foot Exam [facility] Start: 07-18-2021 ADVANCE DIRECTIVE DISCUSSION ADVANCE DIRECTIVE DISCUSSION [facility] Start: 2020 RSV Vaccine (1 - 1-dose 75+ series) RSV Vaccine (1 - 1-dose 75+ series) [facility] Start: 11-28-2017 End: 11-28-2017 Appointment [facility] Work Phone: Start: 11-22-2016 End: 11-22-2016 Appointment Appointment [facility] Work Phone: Start: 11-22-2016 End: 11-22-2016 Follow Up Appt 1 year Follow Up Appt 1 year [facility] Work Phone: Start: 11-22-2016 End: 11-22-2016 PFM PFM [facility] Work Phone: Start: 07-21-2015 End: 07-21-2015 Follow Up Appt 1 year Follow Up Appt 1 year [facility] Work Phone: Start: 07-21-2015 End: 07-21-2015 PFM PFM [facility] Work Phone: Start: 01-06-2015 End: 01-06-2015 Follow Up Appt 6 months Follow Up Appt 6 months [facility] Work Phone: Start: 01-06-2015 End: 01-06-2015 PFM PFM [facility] Work Phone: Start: 10-12-2013 End: 10-12-2013 Follow Up Appt 6 months Follow Up Appt 6 months [facility] Work Phone: Start: 10-12-2013 End: 10-12-2013 Follow Up Appt Other Follow Up Appt Other [facility] Work Phone: Start: 10-12-2013 End: 10-12-2013 PFM PFM [facility] Work Phone: Start: 03-23-2013 End: 03-23-2013 Electrocardiogram, complete EKG (In office) [facility] Work Phone: Start: 03-23-2013 End: 03-23-2013 Follow Up Appt 6 months Follow Up Appt 6 months [facility] Work Phone: Start: 03-23-2013 End: 03-23-2013 MMM MMM [facility] Work Phone: Start: 11-15-2012 End: 03-23-2013 Follow Up Appt 1 year Follow Up Appt 1 year [facility] Work Phone: Start: 11-15-2012 End: 03-23-2013 Follow Up Appt Other Follow Up Appt Other [facility] Work Phone: Start: 11-15-2012 End: 03-23-2013 PFM PFM [facility] Work Phone: Start: 03-15-2012 End: 03-15-2012 Electrocardiogram, complete EKG (In office) [facility] Work Phone: Start: 03-15-2012 End: 03-15-2012 Follow Up Appt 6 months Follow Up Appt 6 months [facility] Work Phone: Start: 01-20-2012 End: 01-20-2012 Remote 30 day ecg rev/report 30 Day Holter Monitor [facility] [facility] Work [facility]: Start: 2005 Hepatitis B Vaccine (1 of 3 - Risk 3-dose series) Hepatitis B Vaccine (1 of 3 - Risk 3-dose series) [facility] Start: 2005 RSV Vaccine (1 - 1-dose 60+ series) RSV Vaccine (1 - 1-dose 60+ series) [facility] Start: 1990 COLOGUARD (FIT-DNA) COLOGUARD (FIT-DNA) [facility] Start: [address] COLONOGRAPHY [facility] Start: 1990 Screening for malignant neoplasm of colon [facility] Start: 1990 SIGMOIDOSCOPY SIGMOIDOSCOPY [facility] Start: 1964 Urine microalbumin profile [facility] Start: 01-27-1946 COVID-19 VACCINE (#1) COVID-19 VACCINE (#1) [facility] Anion gap measurement [facility] Work Phone: Bacteria identified in Sputum by Respiratory culture [facility] Work Phone: Bacteria identified in Sputum by Respiratory culture [facility] Bacteria identified in Urine by Culture Urine Culture [facility] Work Phone: Bacteria identified in Urine by Culture URINE CULTURE Microbiology Routine Acute cystitis without hematuria 06/28/2024 11:42 AM EST [facility] BUN/Creatinine ratio [facility] Work Phone: Calcium [Mass/volume ] in Serum or Plasma [facility] Work Phone: Carbon dioxide, tota l [Moles/volume] in Serum or Plasma [facility] Work Phone: End: 05-18-2023 CBC panel - Blood by Automated count CBC Lab Routine Encounter for long-term current use of medication Every 4 months for 4 Occurrences starting 05/18/2022 until 05/18/2023 [facility] Work Phone: Comment on above: Every 4 months for 4 Occurrences startin g 05/18/2022 until 05/18/2023 Chloride [Moles/volu me] in Serum or Plasma [facility] Work Phone: End: 05-18-2023 Comprehensive metabolic 2000 panel - Serum or Plasma COMP METABOLIC PANEL Lab Routine 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) Encounter for long-term current use of medication Every 4 months for 4 Occurrences starting 05/18/2022 until 05/18/2023 [facility] Work Phone: Comment on above: Every 4 months for 4 Occurrences startin g 05/18/2022 until 05/18/2023 COVID & INFLUENZA A/ B & RSV PCR, ROUTINE COVID & INFLUENZA A/B & RSV PCR, ROUTINE Microbiology Routine Acute cough URI, acute Ordered: 04/18/2024 [facility] Work Phone: Comment on above: Ordered: 04/18/2024 Creatinine [Moles/volume] in Serum or Plasma [facility] Work Phone: End: 04-04-2025 DBT Breast - bilateral screening [facility]LLY SCRE[facility]ING [facility] Radiology Routine Screening mammogram for breast cancer 1 Occurrences starting 03/05/2024 until 04/04/2025 [facility] Work Phone: Comment on above: 1 Occurrences starting 03/05/2024 until 04/04/2025 Glucose [Mass/volume ] in Serum or Plasma [facility] Work Phone: Hematocrit [Volume Fraction] of Blood [facility] Work Phone: Hemoglobin [Mass/vol ume] in Blood [facility] Work Phone: End: 05-18-2023 Hemoglobin A1c in Blood HGB A1C Lab Routine 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) Every 4 months for 4 Occurrences starting 05/18/2022 until 05/18/2023 [facility] Work Phone: Comment on above: Every 4 months for 4 Occurrences startin g 05/18/2022 until 05/18/2023 INFLUENZA VACCINE, P RSV FREE, AGE 65+ YR, HIGH DOSE, QUADRIVALENT (FLUZONE HIGH-DOSE) INFLUENZA VACCINE, PRSV FREE, AGE 65+ YR, HIGH DOSE, QUADRIVALENT (FLUZONE HIGH-DOSE) Immunization/Injection Routine Encounter for immunization Ordered: 05/23/2023 [facility] Work Phone: Comment on above: Ordered: 05/23/2023 Leukocytes [#/volume ] in Blood [facility] Work Phone: End: 02-19-2023 KELLY SCREENING [facility] SCREEN[facility] Radiology Routine Breast cancer screening by mammogram Dense breasts 1 Occurrences starting 01/21/2022 until 02/19/2023 [facility] Work Phone: Comment on above: 1 Occurrences starting 01/21/2022 until 02/19/2023 End: 03-22-2024 KELLY SCREENING [facility] KELLY SCREENING [facility] Radiology Routine Screening mammogram for breast cancer 1 Occurrences starting 02/21/2023 until 03/22/2024 [facility] Work Phone: Comment on above: 1 Occurrences starting 02/21/2023 until 03/22/2024 Mean corpuscular hemoglobin concentration determination [facility] Work Phone: Mean corpuscular hemoglobin determination [facility] Work Phone: Measurement of renal function [facility] Work Phone: Neutrophil count [facility] Work Phone: Neutrophil percent differential count [facility] Work Phone: End: 10-21-2024 NITRIC OXIDE, EXHALED NITRIC OXIDE, EXHALED PFT Routine Mild persistent asthma without complication 1 Occurrences starting 09/22/2023 until 10/21/2024 [facility] Work Phone: Comment on above: 1 Occurrences starting 09/22/2023 until 10/21/2024 End: 04-29-2025 NITRIC OXIDE, EXHALED NITRIC OXIDE, EXHALED PFT Routine Moderate persistent asthma without complication 1 Occurrences starting 03/30/2024 until 04/29/2025 [facility] Work Phone: Comment on above: 1 Occurrences starting 03/30/2024 until 04/29/2025 OXIMETRY - NOCTURNAL OXIMETRY - NOCTURNAL Procedures Routine Severe persistent asthma without complication Ordered: 06/23/2023 [facility] Work Phone: Comment on above: Ordered: 06/23/2023 Patient Education [facility] Work Phone: Patient referral [facility] Work Phone: PFIZER-BIONTECH COVI D-19 VACCINE, AGE 12+ YR (PAIGE TOP) PFIZER-BIONTECH COVID-19 VACCINE, AGE 12+ YR (PAIGE TOP) Immunization/Injection Routine Encounter for immunization Ordered: 02/15/2022 [facility] Work Phone: Comment on above: Ordered: 02/15/2022 Platelets [#/volume] in Blood [facility] Work Phone: Potassium [Moles/vol ume] in Serum or Plasma [facility] Work Phone: Red blood cell count [facility] Work Phone: Red cell distributio n width determination [facility] Work Phone: Respiratory Panel (PCR) Respiratory Panel (PCR) [facility] Work Phone: Respiratory pathogen s DNA and RNA 12b panel - Unspecified specimen by RAYMOND with probe detection [facility] Work Phone: Sodium [Moles/volume ] in Serum or Plasma [facility] Work Phone: SURGICAL PATHOLOGY [facility] Work Phone: Comment on above: Release Upon Ordering for 1 Occurrences starting 10/29/2021, 1 completed Tdap vaccine 7 yrs/> im TDAP VAC CINE AGE 7+ IM Immunization/Injection Routine Encounter for immunization Ordered: 02/15/2022 [facility] Work Phone: Comment on above: Ordered: 02/15/2022 Urea nitrogen [Mass/volume] in Serum or Plasma [facility] Work Phone: Urinalysis complete panel - Urine URINALYSIS, WITH MICROSCOPIC Lab Routine Acute cystitis without hematuria 06/28/2024 11:42 AM EST [facility] Urine culture Urine Culture [facility] Urine culture [facility] Urine culture [facility] End: 01-16-2023 XR HUMERUS 2V AP/LAT RIGHT XR HUMERUS 2V AP/LAT RIGHT Radiology STAT Pain of right upper extremity 1 Occurrences starting 12/17/2021 until 01/16/2023 [facility] Work Phone: Comment on above: 1 Occurrences starting 12/17/2021 until 01/16/2023 [facility] Immunizations Immunization Date Immunization Notes Care Provider Todd schaeffer 08-09-2022 tuberculin skin test ; purified protein derivative solution, intradermal Octavio Reza MD Work Phone: [facility] 05-18-2022 Influenza, high dose seasonal Dr. Octavio Reza MD Work Phone: [facility] 05-18-2022 influenza, high dose seasonal, preservative-free Dr. Octavio Reza Work Phone: [facility] 05-18-2022 influenza, high-dose , quadrivalent vaccine (FLUZONE HIGH DOSE QUADRIVALENT) Octavio Reza MD Work Phone: [facility] 05-18-2022 influenza virus vaccine, unspecified formulation Anant Lees MD Work Phone: [facility] 07-02-2021 influenza, high-dose , quadrivalent vaccine (FLUZONE HIGH DOSE QUADRIVALENT) Octavio Reza MD Work Phone: [facility] 04-15-2020 influenza, high-dose , quadrivalent vaccine (FLUZONE HIGH DOSE QUADRIVALENT) Octavio Reza MD Work Phone: [facility] 04-16-2019 influenza, high dose seasonal, preservative-free Octavio Reza MD Work Phone: [facility] 04-12-2018 influenza, high dose seasonal, preservative-free Octavio Reza MD Work Phone: [facility] 04-11-2017 influenza, high dose seasonal, preservative-free Octavio Reza MD Work Phone: [facility] 05-10-2016 influenza, high dose seasonal, preservative-free Octavio Reza MD Work Phone: [facility] Work Phone: 04-16-2016 pneumococcal polysaccharide vaccine, [address] Octavio Reza Work Phone: [facility] 04-16-[address] Juliana Reza Work Phone: [facility] Work Phone: 04-16-2016 pneumococcal vaccine , unspecified formulation Dr. Octavio Reza Work Phone: [facility] 03-16-2016 pneumococcal conjuga te vaccine, 13 valent Octavio Reza MD Work Phone: [facility] Work Phone: 05-27-2015 influenza, high dose seasonal, preservative-free Octavio Reza MD Work Phone: [facility] 04-17-[address] Octavio Reza Work Phone: [facility] 06-12-2014 pneumococcal polysaccharide vaccine, 23 valent Octavio Reza MD Work Phone: [facility] 05-23-[address] Octavio Reza Work Phone: [facility] 05-23-2013 influenza virus vaccine, unspecified formulation Octavio Reza MD Work Phone: [facility] 05-23-2013 influenza, seasonal, injectable Octavio Reza MD Work Phone: [facility] 04-13-2012 influenza virus vaccine, unspecified formulation Octavio Reza MD Work Phone: [facility] 06-01-2007 influenza virus vaccine, unspecified formulation Octavio Reza MD Work Phone: [facility] Work Phone: 05-18-2006 influenza virus vaccine, unspecified formulation Octavio Reza MD Work Phone: [facility] Work Phone: 06-15-2005 influenza virus vaccine, unspecified formulation Octavio Reza MD Work Phone: [facility] Work Phone: 07-26-2000 pneumococcal polysaccharide vaccine, 23 valent Octavio Reza MD Work Phone: [facility] Work Phone: NEGATED: Highlighted row has not occurred!06-25-2023 influenza (HD-IIV4) vaccine, age 65+ yr, high dose, quadrivalent, PF (FLUZONE HIGH-DOSE) Octavio Reza MD Work Phone: [facility] Work Phone: NEGATED: Highlighted row has not occurred!05-23-2023 influenza (HD-IIV4) vaccine, age 65+ yr, high dose, quadrivalent, PF (FLUZONE HIGH-DOSE) Lydia Grande APRN.VP [employer]ER [employer] Work Phone: [facility] Comment on above: Deferred: Postponed - Verified Patricia Mora LPN NEGATED: Highlighted row has not occurred!02-15-2022 COVID-19 vaccine, age 12+ yr (PFIZER-BIONTECH - PAIGE TOP) Lydia Grande APRN.VP [employer] Work Phone: [facility] Work Phone: NEGATED: Highlighted row has not occurred!02-15-2022 influenza virus vaccine, unspecified formulation Lydia Grande APRN.VP [employer] Work Phone: [facility] Work Phone: NEGATED: Highlighted row has not occurred!02-15-2022 tetanus toxoid, reduced diphtheria toxoid, and acellular pertussis vaccine, adsorbed Lydia Grande APRN.[employer] Work Phone: [facility] Work Phone: Comment on above: Deferred: Postponed Payers Date Payer Category Payer Self-pay [id number] 2021 Medicare AET[employer] MEDICARE A ETNA MEDICARE PPO [id number] 2021-Present [phone] [address] [place] [address] PP [id number] 2021 Medicare (Managed Care) [employer] [place] DICARE [id number] 2021 Private Health Insurance [id number] 2021 Medicare [id number] 2010 Unknown [id number] 2002 Medicare [id number] Unknown [id number] Unknown [id number] [id number]. 462 Unknown [id number] [id number]. 462 Unknown [id number] 2.16.840.1.553298.3.579.2. 462 Unknown [id number] 2.840.1.667769.3.579.2. 462 Unknown [id number] 2.840.1.290163.3.579.2. 462 Unknown [id number] 2.840.1.995600.3.579.2. 462 Unknown [id number] 2.840.1.358931.3.579.2. 462 Unknown [id number] .840.1.930710.3.579.2. 462 Unknown [id number] 2.840.1.669209.3.579.2. 462 Unknown [id number] 2.840.1.934868.3.579.2. 462 Unknown [id number] 2.840.1.664489.3.579.2. 462 Unknown [id number] .840.1.586326.3.579.2. 462 Unknown [id number] .840.1.540272.3.579.2. 462 Unknown [id number] 2.840.1.257078.3.579.2. 462 Unknown [id number] 2.840.1.657116.3.579.2. 462 Unknown [id number] .840.1.026781.3.579.2. 462 Unknown [id number] .840.1.415298.3.579.2. 462 Unknown [id number] 2.840.1.344919.3.579.2. 462 Unknown [id number] 2.840.1.732444.3.579.2. 462 Unknown [id number] 2.840.1.927860.3.579.2. 462 Unknown [id number] 2.16.840.1.065075.3.579.2. 462 Unknown [id number] 2.16.840.1.321675.3.579.2. 462 Unknown [id number] 2.16840.1.419262.3.579.2. 462 Unknown [id number] 2.16840.1.904711.3.579.2. 462 Unknown [id number] 2.16840.1.381634.3.579.2. 462 Unknown [id number] 2.16840.1.304025.3.579.2. 462 Social History Date Type Detail Facility Start: 09-07-2022 End: 03-07-2024 Tobacco smoking status NHIS Ex-smoker [facility] Start: 10-21-1978 End: 10-21-1998 History of tobacco use Current smoker [facility] Start: 10-21-1978 End: 10-21-1998 History of tobacco use Cigarette Smoker [facility] Start: 09-30-2021 End: 12-17-2021 Alcohol intake Current drinker of alcohol (finding) [facility] Start: 02-24-2018 History SDOH Alcohol Comment Rarely [facility] Start: 1945 Sex Assigned At Not on file C [facility] Start: 09-20-2021 End: 05-18-2022 Exposure to SARS-CoV-2 (event) Not sure [facility] Start: 12-13-2021 End: 12-23-2021 Exposure to SARS-CoV-2 (event) Unable to assess [facility] Work Phone: Start: 02-11-2022 End: 11-28-2023 Tobacco smoking status WVIS Unknown if ever smoked [facility] Start: 04-14-2016 None [facility] Start: 01-19-2019 Spouse/ Signif icant Other [facility] Start: 01-19-2019 Non-smoker [facility] Start: 1945 Sex Assigned At Female W [facility] Start: 09-07-2022 End: 01-17-2023 Cigarettes smoked current (pack per day) - Reported 0.5 [facility] Start: 09-07-2022 End: 03-07-2024 Tobacco use and exposure Smokeless tobacco non-user [facility] Work Phone: Start: 01-17-2023 End: 04-04-2024 Tobacco use panel [facility] Adult Depression Screening Assessment 2 [facility] Start: 04-04-2024 End: 01-15-2025 Alcoholic beverage intake Ex-drinker (finding) [facility] Has the RetiDi[employer], or Serious [place] threatened to shut off services in your home in past 12Mo No [facility] (I/We) worried maryuri er (my/our) food would run out before (I/we) got money to buy more. Never true [facility] Start: 09-20-2024 End: 11-03-2024 Sex Female (finding) [facility] How often to you hav e a drink containing alcohol? Never [facility] Medical Equipment Procedure Code Equipment Code Equipment Origin al Text Equipment Identifier Dates [id number], [id number], [id number], [id number], [id number] Start: 09-24-2020 End: 10-31-2024 Comment on above: [...] A1C Functional Status Date Assessment Result Facility 01-15-2025 Total score [AUDIT-C] 0 01/16/20 10:00 AM EDT Ritika Santos LPN [facility] 08-02-2022 Functional status Ambulates;Bath room Privilege [facility] Work Phone: 07-24-2022 Functional status Ambulates [facility] Work Phone: 07-14-2022 Functional status Ambulates;Bath room Privilege [facility] Work Phone: 01-12-2021 Are you deaf, or do you have serious difficulty hearing No 01/12/2021 3:44 PM EDT Octavio Reza MD No [facility] 01-12-2021 Are you blind, or do you have serious difficulty seeing, even when wearing glasses No 01/12/2021 3:44 PM EDT Octavio Reza MD No [facility] 01-12-2021 Do you have serious difficulty walking or climbing stairs No 01/12/2021 3:44 PM EDT Octavio Reza MD No [facility] 01-12-2021 Do you have difficul ty dressing or bathing No 01/12/2021 3:44 PM EDT Octavio Reza MD No [facility] 01-12-2021 Because of a physica l, mental, or emotional condition, do you have difficulty doing errands alone such as visiting a physician's office or shopping No 01/12/2021 3:44 PM EDT Octavio Reza MD No [facility] Mental Status Date Assessment Result Facility 01-04-2025 Cognitive function Awake;Alert;Appropriat e [facility] Work Phone: 12-19-2024 Cognitive function Awake;Alert;A ppropriate;Fol lows Commands [facility] Work Phone: 11-29-2024 Cognitive function Awake;Alert;A ppropriate;Fol lows Commands [facility] Work Phone: 09-21-2024 Cognitive function Awake;Appropr iate;Follows Commands;Lethargic [facility] Work Phone: 09-20-2024 Cognitive function Awake;Alert;Appropriat e [facility] Work Phone: 07-02-2024 Cognitive function Voice/Name [facility] Work Phone: 06-08-2024 Cognitive function Level Of Cons ciousness Awake;Alert;Appropriate;Fol lows Commands [facility] Work Phone: 05-27-2024 Cognitive function Voice/Name [facility] Work Phone: 05-25-2024 Cognitive function Level Of Cons ciousness Awake;Alert;Appropriate [facility] Work Phone: 11-28-2023 Cognitive function Level Of Cons ciousness Awake;Alert;Appropriate;Fol lows Commands [facility] Work Phone: 11-07-2023 Cognitive function Level Of Cons ciousness Awake;Alert;Appropriate;Fol lows Commands [facility] Work Phone: 11-06-2023 Cognitive function Voice/Name [facility] Work Phone: 10-28-2023 Cognitive function Level Of Cons ciousness Awake;Alert;Appropriate;Fol lows Commands [facility] Work Phone: 09-21-2023 Cognitive function Level Of Cons ciousness Awake;Alert;Appropriate;Fol lows Commands [facility] Work Phone: 09-16-2023 Cognitive function Level Of Cons ciousness Awake;Alert;Appropriate;Fol lows Commands [facility] Work Phone: 05-28-2023 Cognitive function Voice/Name [facility] Work Phone: 11-04-2022 Cognitive function Voice/Name [facility] Work Phone: 10-11-2022 Cognitive function Awake;Alert;A ppropriate;Fol lows Commands [facility] Work Phone: 10-01-2022 Cognitive function Voice/Name [facility] Work Phone: 08-02-2022 Cognitive function Voice/Name;Touch/Shaki ng [facility] Work Phone: 07-31-2022 Cognitive function Voice/Name [facility] Work Phone: 07-24-2022 Cognitive function Voice/Name [facility] Work Phone: 07-14-2022 Cognitive function Appropriate;Cooperativ e [facility] Work Phone: 07-13-2022 Cognitive function Voice/Name [facility] Work Phone: 07-10-2022 Cognitive function Level Of Cons ciousness Awake;Alert;Appropriate;Fol lows Commands [facility] Work Phone: 02-11-2022 Cognitive function Patient Jose pichardo Person;Place;Time [facility] Work Phone: 01-12-2021 Because of a physica l, mental, or emotional condition, do you have serious difficulty concentrating, remembering, or making decisions 01/12/2021 3:44 PM EDT Octavio Reza MD No [facility] Clinical Notes 05-11-2021 to 01-15-2025 Octavio Reza MD - 01/15/2025 10:13 AM EDTPatient InstructionsTelephone Encounter - Norma Devlin RN - 12/21/2024 9:59 AM EDTTelephone Encounter - ONorma Hartman RN - 12/21/2024 9:59 AM EDT Note Date & Type Note Facility 01-15-2025 Note [facility] 01-15-2025 History of Presen t illness Narrative Images from the original note were not included. This note was created using eduPadriter. Subjective Attila Kidd is a 79 year old female. HISTORY Attila Kidd is a 79 year old lady here for Medicare Annual Wellness Visit, yearly exam and follow up appointment. Attila Kidd is a 79-year-old female with a history of DM, HTN, and recent ER visits for chest pain, presenting for a Medicare Annual Wellness Visit. Attila reports no recent falls and is actively engaging in exercise. She experiences anxiety and stress, which she attributes to medical issues. She is under the care of a spudder, ALEN Mcgregor, at [facility]. She has two sisters and no brothers, with no recent changes in family medical history. Attila is currently taking multiple medications, including Lasix as needed, aspirin BID, and has a glucagon pen at home for hypoglycemia. She uses Peridex mouthwash as needed for oral irritation and has an albuterol inhaler prescribed in May 2024, which she has never used. She was previously taking half a tablet of amlodipine once daily but has been advised by her spudder to take a whole tablet once daily. She is also on metoprolol 50 mg, half a pill BID, and ramipril 10 mg BID. She has Tessalon Perles on hand for cough, which she finds effective for occasional throat irritation. She takes Lasix as needed and was recently prescribed simethicone in September. She takes Ambien most nights and is due for a refill. Attila has had multiple ER visits for chest pain, which she associates with eating and drinking more coffee. She has been diagnosed with reflux and is considering dietary changes to manage her symptoms. She has a history of a heart catheterization in 2011, which was normal. She is concerned about her blood pressure and is monitoring it closely. She has been advised to increase her amlodipine dosage and is aware of the potential side effect of leg swelling. She is also aware of the possibility of changing her beta-ariella if her current medication is not effective. Attila has a history of diabetic retinopathy and experiences dark spots in her vision, which she associates with low blood sugar levels. She uses reading glasses and is under the care of an eye doctor, Dr. Brasher. She is staying hydrated and has a partial plate for her lower teeth. She experiences occasional itching in her ears and has noticed swelling in her salivary glands. Attila has a history of a broken ankle and wears compression stockings to manage swelling. She is under the care of a senior maintenance technician, Dr. Padgett, and is considering getting new shoes from [employer]. She is also considering a new brace for her foot. Attila has been drinking more water and is experiencing frequent urination. She is monitoring her weight and is aiming to lose more weight. She is currently 277 lbs and has lost weight gradually. She is engaging in leg and arm exercises and is considering reducing her insulin dosage to manage her weight. She is under the care of a dietitian, Marcela, and is working on making healthy lifestyle changes. PAST MEDICAL HISTORY Diagnosis Date Adverse reaction [...] daily TYPE I DIABETES, insulin dependent, E10.65 insulin glargine (LANTUS SOLOSTAR U-100 INSULIN) 100 unit/mL (3 mL) Inject 22 units once daily SYMBICORT 160-4.5 mcg/actuation inhaler Inhale 2 puffs as instructed two times a day. blood sugar diagnostic (BLOOD GLUCOSE TEST) test [...] needed. FOR WHEEZING AND SHORTNESS OF BREATH. metoprolol tartrate, short acting, (LOPRESSOR) 50 mg tablet Take 1/2 tablet by mouth twice a day ramipril (ALTACE) 10 mg capsule Take 1 capsule by mouth two times a day. Chlorhexidine Gluconate (PERIDEX) 0.12 % solution Use 15 mL as instructed two times a day. (Patient taking differently: Use 15 mL as instructed two times a day.) glucagon (GVOKE HYPOPEN 1-PACK) 1 mg/0.2 mL auto-injector Inject 1 mg subcutaneously as needed. aspirin, enteric coated (ASPIRIN, ENTERIC COATED) 81 mg EC tablet Take 1 tablet by mouth two times a day. furosemide (LASIX) 20 mg tablet Take 1 tablet by mouth once daily as needed. Insulin Lincoln, Disposable, (BD ULTRA-FINE FADY PEN NEEDLE) 32 gauge x 5/32 Use one needle for each dose. 1-2 /day. COMPOUNDED PRESCRIPTION Bi-PAP nose pads. (G47.33) THAIS treated with BiPAP ibuprofen 200 mg tablet Take 1-2 tablets by mouth four times daily as needed (Take with food.). --currently only needing 1 pill twice daily to help with cough amLODIPine (NORVASC) 10 mg tablet Take 1 tablet by mouth once daily. (Jae Lee sent prescription to take 10 mg daily) benzonatate (TESSALON PERLES) 100 mg capsule Take 1 capsule by mouth three times a day as needed for cough. zolpidem (AMBIEN) 5 mg tablet Take 1 tablet by mouth at bedtime as needed for up to 90 days. Needs larger pill dispensed to cut in half. flash glucose sensor (FREESTYLE RAISSA 2 SENSOR) [...] Lysine Itching Naprosyn [Naproxen] GI Upset Nausea Jugogdg-Ovp-Cnx Red* Myalgia Tylenol-Codeine #3 * Vomiting Ventolin [Albuterol* GI Upset, Vomiting FAMILY HISTORY Problem Relation Age of Onset Heart Father Lipids Father Lipids Mother Hypertension Mother Heart Mother Breast Cancer Maternal Grandmother other (MS) Sister No Known Problems Son Social History Tobacco Use Smoking status: Former Current packs/day: 0.00 Average packs/day: 0.5 packs/day for 20.0 years (10.0 ttl pk-yrs) Types: Cigarettes Start date: 10/21/1978 Quit date: 10/21/1998 Years since quittin.2 Smokeless tobacco: Never Vaping Use Vaping status: Never Used Substance Use Topics Alcohol use: Not Currently Drug use: No Review of Systems Objective BP 138/80 Pulse (!) 59 Resp 16 Ht 176.5 cm (5' 9.5) Wt 126 kg (277 lb 12.5 oz) BMI 40.43 kg/m Physical Exam Vitals reviewed. Constitutional: Appearance: Normal appearance. She is well-developed. She is obese. HENT: Head: Normocephalic and atraumatic. Right Ear: Tympanic membrane, ear canal and external ear normal. Left Ear: Tympanic membrane, ear canal and external ear normal. Nose: Nose normal. Mouth/Throat: Mouth: Mucous membranes are moist. Eyes: Conjunctiva/sclera: Conjunctivae normal. Pupils: Pupils are equal, round, and reactive to light. Neck: Thyroid: No thyromegaly. Cardiovascular: Rate and Rhythm: Normal rate and regular rhythm. Pulses: Normal pulses. Dorsalis pedis pulses are 2+ on the right side and 2+ on the left side. Posterior tibial pulses are 2+ on the right side and 2+ on the left side. Heart sounds: Normal heart sounds. No murmur heard. No friction rub. No gallop. Pulmonary: Effort: Pulmonary effort is normal. Breath sounds: Normal breath sounds. Abdominal: General: Bowel sounds are normal. There is no distension. Palpations: Abdomen is soft. There is no mass. Tenderness: There is no abdominal tenderness. Musculoskeletal: General: Normal range of motion. Right lower leg: Edema present. Left lower leg: Edema present. Right foot: Deformity present. Left foot: Deformity and Charcot foot present. Comments: Wears braces on both legs Feet: Right foot: Protective Sensation: 10 sites tested. 8 sites sensed. Skin integrity: Skin integrity normal. Toenail Condition: Right toenails are normal. Left foot: Protective Sensation: 10 sites tested. 9 sites sensed. Skin integrity: Skin integrity normal. Toenail Condition: Left toenails are normal. Comments: Removed compression stocking and braces for foot exam. Lymphadenopathy: Cervical: No cervical adenopathy. Skin: General: Skin is warm and dry. Coloration: Skin is not jaundiced or pale. Findings: No rash. Neurological: General: No focal deficit present. Mental Status: She is alert and oriented to person, place, and time. Cranial Nerves: No cranial nerve deficit. Sensory: No sensory deficit. Motor: No abnormal muscle tone. Coordination: Coordination normal. Deep Tendon Reflexes: Reflexes normal. Psychiatric: Attention and Perception: Attention and perception normal. Mood and Affect: Mood and affect normal. Speech: Speech normal. Behavior: Behavior normal. Thought Content: Thought content normal. Cognition and Memory: Cognition and memory normal. Judgment: Judgment normal. Hemoglobin A1C (%) Date Value 01/08/2025 6.9 08/20/2024 7.1 12/07/2023 7.7 09/01/2023 7.7 05/16/2023 7.4 09/02/2021 7.8 05/04/2021 7.4 01/06/2021 8.4 08/11/2020 8.3 04/08/2020 7.8 Hemoglobin A1C (POCT) (%) Date Value 05/23/2024 6.9 Latest Ref Rng 09/01/2023 09/02/2023 12/07/2023 01/27/2024 05/23/2024 08/20/2024 10/01/2024 01/08/2025 WBC 3.70 - 11.00 k/uL 7.30 5.29 6.04 RBC 3.90 - 5.20 m/uL 4.43 4.29 4.34 Hemoglobin 11.5 - 15.5 g/dL 13.0 12.7 12.9 Hematocrit 36.0 - 46.0 % 39.8 38.3 39.1 MCV 80.0 - 100.0 fL 89.8 89.3 90.1 MCH 26.0 - 34.0 pg 29.3 29.6 29.7 MCHC 30.5 - 36.0 g/dL 32.7 33.2 33.0 RDW-CV 11.5 - 15.0 % 12.6 12.6 12.9 Platelet Count 150 - 400 k/uL 199 195 206 MPV 9.0 - 12.7 fL 12.7 12.5 11.9 Neut% % 82.8 71.6 Abs Neut (ANC) 1.45 - 7.50 k/uL 6.05 3.79 Lymph% % 6.6 15.3 Abs Lymph 1.00 - 4.00 k/uL 0.48 (L) 0.81 (L) Cannon% % 6.3 7.6 Abs Cannon <0.87 k/uL 0.46 0.40 Eosin% % 3.6 4.9 Abs Eosin <0.46 k/uL 0.26 0.26 Baso% % 0.4 0.4 Abs Baso <0.11 k/uL 0.03 <0.03 Immature Gran % % 0.3 0.2 IMMATURE GRANS (ABS) <0.10 k/uL <0.03 <0.03 NRBC /100 WBC 0.0 0.0 Absolute nRBC <0.01 k/uL <0.01 <0.01 <0.01 DTYPE Auto Auto Protein, Total 6.3 - 8.0 g/dL 7.1 6.7 7.1 6.5 Albumin 3.9 - 4.9 g/dL 4.0 3.9 4.2 3.9 Calcium 8.5 - 10.2 mg/dL 9.8 9.4 9.8 9.4 Bilirubin, Total 0.2 - 1.3 mg/dL 0.8 0.8 1.0 0.6 Alkaline Phosphatase 34 - 123 U/L 107 101 83 74 AST 13 - 35 U/L 16 14 18 21 ALT 7 - 38 U/L 14 12 15 21 Glucose 74 - 99 mg/dL 123 (H) 114 (H) 149 (H) 173 (H) BUN 7 - 21 mg/dL 24 (H) 18 22 (H) 17 Creatinine 0.58 - 0.96 mg/dL 0.72 0.77 0.71 0.69 Sodium 136 - 144 mmol/L 139 139 139 140 Potassium 3.7 - 5.1 mmol/L 4.3 4.1 4.1 4.4 Chloride 98 - 107 mmol/L 103 102 103 102 CO2 22 - 30 mmol/L 26 28 27 29 Anion Gap 8 - 15 mmol/L 10 9 9 9 eGFR >=60 mL/min/1.73m 86 79 87 88 Cholesterol, Total <200 mg/dL 175 Triglyceride <150 mg/dL 77 HDL Cholesterol >39 mg/dL 62 Non HDL Cholesterol <130 mg/dL 113 Fasting Time hrs 10 VLDL Cholesterol <30 mg/dL 15 TC:HDL Ratio <5.10 2.82 LDL Cholesterol, Calculated <100 mg/dL 98 LDL:HDL Ratio <2.54 1.58 Total Cholesterol, Nonfasting <200 mg/dL 197 Triglycerides, Nonfasting <150 mg/dL 92 HDL Cholesterol, Nonfasting >39 mg/dL 59 LDL Cholesterol Calculated, Nonfasting <100 mg/dL 120 (H) Non HDL Cholesterol, Nonfasting <130 mg/dL 138 (H) VLDL Cholesterol, Nonfasting <30 mg/dL 18 Total Chol/HDL Ratio, Nonfasting <5.10 mg/dL 3.34 LDL/HDL Ratio, Nonfasting <2.54 mg/dL 2.03 Creatinine, Ur Random (UCRR) 20.0 - 300.0 mg/dL 78.0 24.5 44.9 Albumin, Urine Random mg/L <12.0 <12.0 <12.0 Albumin/Creat Ratio <30 mg/g <15 -- <27 Hemoglobin A1C 4.3 - 5.6 % 7.7 (H) 7.7 (H) 7.1 (H) 6.9 (H) Estimated Average Glucose mg/dL 174 174 157 151 Glutamic Acid Decarboxylas Ab Qualitative Negative Positive ! Glutamic Acid Decarboxylase Ab <=5.0 IU/mL 6.7 (H) WSR 0 - 20 mm/hr 27 (H) CRP <0.9 mg/dL 1.3 (H) DORA Negative Negative Rheumatoid Factor <16 IU/mL <10 Vitamin D 25 Hydroxy 31.0 - 80.0 ng/mL 46.2 71.5 75.3 Islet Cell Ab <1:4 <1:4 Hemoglobin A1C (POCT) 4.3 - 5.6 % 6.9 ! Legend: (L) Low (H) High ! Abnormal Assessment and Plan See below Attila Kidd is a 79 year old female here for a Medicare wellness visit. Medicare Health Risk Assessment General Health Fair Exercise: Minutes/Day 30 min Exercise: Days/Week 7 days Alcohol: Daily Use Never Alcohol: Drinks/Day Patient does not drink Alcohol: 6 or more drinks Never Feel off balance Yes--no recent falls Concerns: Teeth/Dentures No Concerns: Sexual function No Troubled by feelings Anxious; Stressed Frequency: Eating healthy diet Nearly every day ADLs requiring help None of the above Safety precautions in home/vehicle Yes Smoke, vape, chews tobacco No Difficulty hearing No Difficulty seeing No Current Providers Specialists: I have reviewed specialist-related care of the patient in the medical record. Outside specialists seen: ALEN Smith ([facility]) Medical/Family history review Reviewed and updated problem list, medical/surgical/family/social history, medications, and allergies. Opioid use review Opioid Medications (last 90 days) No data to display Anxiety/Depression screening PHQ-2 Score: 0 (Lower risk for depression) Recommendation: no further intervention at this time Cognitive screening Mini Cog Score: 4 Cognitive screening reviewed and No further action needed (score 3-5). Functional Observation Was the patient's Timed Up & Go test unsteady or >= 12 seconds? Gets around in wheelchair Advance Care Planning Surrogate decision maker and/or advance care plan documented Measurements BP 138/80 Pulse (!) 59 Resp 16 Ht 176.5 cm (5' 9.5) Wt 126 kg (277 lb 12.5 oz) BMI 40.43 kg/m Vision Screening: Follows with optometry/ophthalmology Assessment/Plan Medicare annual wellness visit, subsequent (Z.) - Counseled on healthy diet and regular exercise - Fall avoidance information provided - Personalized prevention plan provided ASSESSMENT AND PLAN # Medicare annual wellness visit, subsequent (Z.) - Completed Medicare annual wellness visit. - No recent falls reported; balance issues noted but manageable. - Follow-up scheduled in six months. 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 - No proteinuria; kidney function normal. - Regular follow-ups with Dr. Avalos for foot care; recent examination showed good sensation and minimal swelling. - Continue current diabetes management; glucagon pen available for hypoglycemic episodes. - Advised on dietary adjustments to prevent hypoglycemia and support weight loss. - Next follow-up with endocrinology on the of this month. # Primary insomnia (F51.01) - Continue Ambien as prescribed; refill ordered. - Discussed potential side effects and importance of adherence to prescribed dosage. # Essential hypertension (I10) - Recent ER visit for chest pain ruled out myocardial infarction; EKG and troponin levels normal. - Recent blood pressures in the 120s-130s/50s. - Amlodipine dosage increased to 10 mg daily per cardiology; monitor for potential side effects such as leg swelling. - Metoprolol 50 mg half tablet twice daily and ramipril 10 mg twice daily to continue as prescribed. - Educated on dietary sodium reduction and stress management techniques, including breathing exercises. - Follow-up with cardiology as needed. # Vitamin D deficiency (E55.9) - Recent labs show adequate vitamin D levels; continue current supplementation. # Encounter for immunization (Z23) - Discussed RSV vaccination; advised to obtain at the pharmacy in the fall. # Class 3 severe obesity due to excess calories with body mass index (BMI) of 40.0 to 44.9 in adult, unspecified whether serious comorbidity present (HCC) (E66.813) - Current weight 277 lbs, down from 340 lbs; gradual weight loss noted. - Encouraged continuation of regular exercise and healthy eating habits. - Discussed the importance of maintaining muscle mass during weight loss. - Follow-up in six months to monitor progress. Octavio Reza MD Recording using SecureLink software for draft documentation of the visit was discussed with the patient/authorized business process representative; all questions welcomed and answered. Patient/authorized business process representative agreed to proceed documented in this encounter [facility] 01-15-2025 Instructions Octavio Reza MD - 01/15/2025 10:13 AM EDT - Increase your amlodipine to one 10 mg tablet once daily; use your remaining half-tablet supply until your new prescription is filled. - Continue metoprolol 25 mg ( tablet) twice daily and ramipril 10 mg twice daily as before. - Continue lasix as needed and aspirin twice daily. - Keep your albuterol rescue inhaler available; check its expiration and replace if it s . - Use Peridex mouth rinse as needed for oral irritation. - Take Tessalon Perles as needed for cough; a 30-tablet prescription with refills has been sent to your pharmacy. - Take Ambien (zolpidem) 5 mg nightly (one whole tablet); a refill request has been sent to your pharmacy. - Keep your glucagon emergency pen and fast-acting carbs (e.g., glucose tablets); for low blood sugar, follow the 15-15 rule (15 g carbs, wait 15 minutes, repeat as needed). - Avoid reflux triggers (cold drinks, caffeine, tomatoes, large meals); try fblu-hbl-cqrvehi Tums, Rolaids, or Pepcid AC for occasional heartburn. If reflux symptoms persist, call our office. - Practice stress-relief breathing: inhale to a count of 4, exhale to a count of 8 (or use any comfortable 1:2 qavcej-fc-fzwxqm ratio) to help lower your blood pressure. - Follow a balanced diet rich in fruits, vegetables, and lean protein; stay well-hydrated (aim for about eight 16-oz bottles of water daily). - Continue your regular exercise routine and fall-prevention measures at home. - Monitor your blood pressure at home using the chart we provided; if you develop significant changes or concerning symptoms, contact our office. - If your legs swell after increasing amlodipine, let Jae Lee know before your next visit. - You declined an RSV vaccine today; you may obtain it at your pharmacy in the fall (we ll revisit in three months). - Obtain any due tetanus vaccine at your pharmacy (not provided in this office). - Continue routine diabetic foot exams with Dr. Marin and your regular eye exams with Dr. Brasher. - Next appointments: - Follow up with Marcela Mcgee on the of this month. - Medicare wellness visit in about 1 year; 6 months Follow up in July already scheduled - Call our office for any new or worsening symptoms, medication side effects, or questions about your care plan. Screening schedule The following prevention plan is recommended: DTaP,Tdap,Td Vaccine(1 - Tdap) Never done Diabetic Foot Exam due on 10/27/2021 WHAT YOU CAN DO TO PREVENT FALLS Many falls can be prevented. By making some changes, you can lower your chances of falling. Four things YOU can do to prevent falls for you* and your caregiver 1. Begin a regular exercise program Exercise is one of the most important ways to lower your chances of falling. It makes you stronger and helps you feel better. Exercises that improve balance and coordination (like Javier Chi) are the most helpful. Lack of exercise leads to weakness and increases your chances of falling. Ask your doctor or health care provider about the best type of exercise program for you. 2. Have your health care provider review your medicines Have your doctor or pharmacist review all the medicines you take, even vvbf-mtj-jnpggrs medicines. As you get older, the way medicines work in your body can change. Some medicines, or combinations of medicines, can make you sleepy or dizzy and can cause you to fall. 3. Have your vision checked Have your eyes checked by an eye doctor at least once a year. You may be wearing the wrong glasses or have a condition like glaucoma or cataracts that limits your vision. Poor vision can increase your chances of falling. 4. Make your home safer About half of all falls happen at home. To make your home safer: Remove things you can trip over (like papers, books, clothes, and shoes) from stairs and places where you walk. Remove small throw rugs or use double-sided tape to keep the rugs from slipping. Keep items you use often in cabinets you can reach easily without using a step stool. Have grab bars put in next to your toilet and in the tub or shower. Use non-slip mats in the bathtub and on shower floors. Improve the lighting in your home. As you get older, you need brighter lights to see well. Hang light-weight curtains or shades to reduce glare. Have handrails and lights put in on all staircases. Wear shoes both inside and outside the house. Avoid going barefoot or wearing slippers. For more information, contact: Centers for Disease Control and Prevention www.cdc.gov/injury * This information may not apply if you have certain medical conditions. documented in this encounter [facility] 01-04-2025 Radiology Diagnostic study note [facility] Services [address], [place] [address] Chest PA and Lateral MR#: [id number] Acct: [id number] Name: ATTILA KIDD Rep #: [id number] : 1945 F 79 From: Ebony Stanford MD PCP: Dr. Octavio Reza MD Status: RE G ER Study:Chest PA and Lateral Date of Exam: 01/04/25 Exam# [id number] Ordering Dr: Amber Rose EXAM: XR Chest, 2 Views CLINICAL INDICATION: CHEST PAIN TECHNIQUE: Frontal and lateral views of the chest. COMPARISON: No relevant prior studies available. FINDINGS: LUNGS AND PLEURAL SPACES: Unremarkable. No consolidation. No pneumothorax. HEART: Unremarkable. No cardiomegaly. MEDIASTINUM: Unremarkable. Normal mediastinal contour. BONES/JOINTS: Unremarkable. No acute fracture. RAD/Chest PA and Lateral IMPRESSION: No acute cardiopulmonary process. Reading Location: [id number] CC: Dr. Octavio Reza MD; ALEN Diamond ~ Senior Health Physics Technician: Signed [facility] 12-21-2024 Telephone encounter Note Call placed to Ashok (on speaker phone). Elijah reports that he did end up taking Pt to [facility] ED on 12/19/2024. He reports that they checked a urine to make sure she didn't have an infection, and it was clear. They did not run any other blood work; they just reviewed her lab results from 11/2024. Pulled [facility] ED records: -Discharge diagnosis was 'Anxiety' - [...] long as Pt's glucose is averaging ~150, Reentta Mcgee is comfortable with that, given her age. They voice understanding. Instructed to call if they have any other questions and/or concerns. ED visit note scanned into chart. Norma Devlin RN December 21, 2024 10:[address] [facility] 12-21-2024 Miscellaneous Notes Call placed to Ashok (on speaker phone). Elijah reports that he did end up taking Pt to [facility] ED on 12/19/2024. He reports that they checked a urine to make sure she didn't have an infection, and it was clear. They did not run any other blood work; they just reviewed her lab results from 11/2024. Pulled [facility] ED records: -Discharge diagnosis was 'Anxiety' - [...] as Pt's glucose is averaging ~150, Renetta Everardo is comfortable with that, given her age. [...] unable to leave message. Will route to [facility] nurse pool in the case that [...] the ED? Please contact patient/ back at [phone]. documented in this encounter [facility] 12-20-2024 Telephone encounter Note Sugars between 176 and 232 do not require a visit to the hospital. Patient was counseled multiple times on when to check BG, how to use their insulin. She is 79, sugars between 100 - 200 with average of 150 are her goal. Would they like to see the DM EDUCATOR again? [facility] 12-19-2024 Discharge summary [facility] 12-19-2024 Telephone encount er Note Call attempt back to Pt's , Elijah. Voicemail full, unable to leave message. Will route to [facility] tri[facility] nurse pool in the case that Pt and/or spouse return call. *Pt does have a h/o UTI so that might be something that needs ruled out. Current insulin orders per Renetta Mcgee CNP only advise insulin be taken PRE-MEAL. They have been educated previously on not checking blood sugars too much or between meals.* Norma Devlin RN December 19, 2024 3:58 PM [facility] 12-19-2024 Telephone encount er Note Received a [...] the ED? Please contact patient/ back at [phone]. [facility] 12-19-2024 Discharge summary Note Date/Time December 19, 2024 5:42p [facility] Medical Records Department [address] [place] [address] Emergency Department Summary 12/19/24 MR#: [id number] Acct: [id number] Name: ATTILA KIDD Rep #:[id number] : 1945 79 From: Abdulaziz Stratton MD [...] similar symptoms: Yes Recent Illness/Hospitalization: No PFSH PFSH Medical History THAIS (obstructive sleep apnea) Hyperglycemia [...] amiodarone Allergy Intermediate Swelling Verified 12/19/24 15:49 [place] And Derivatives Allergy Intermediate Hives Verified 12/19/24 [...] 12/19/24 15:49 Airborne (ascorbate sodium)) hydrocodone (From Moose) Allergy Mild dystonia Verified 12/19/24 15:49 lysine [...] AdvReac Severe HALLUCINATI Verified 12/19/24 15:49 ONS Vfeawzs-ODZ-ZxM Reductase AdvReac Severe myalgias Verified 12/19/24 15:49 Inhibitor (Ouxgtsu-Aeg-Unt Reductase Inhibitor) amoxicillin (From Augmentin) AdvReac Other [...] are nontender without edema or cords. Normal dry house wheeler strength. Normal dorsi plantarflexion. Back nontender. Neurologically [...] were unremarkable other than elevated blood sugar. Shewill use her insulin at home as needed. [...] scale when you get home. Print Language: Mongolian Disposition Disposition: Home, Self Care What to do if you have Problems For any increased pain, shortness of breath, bleeding, nausea or vomiting, chestpain, or any unexpected problems, contact your Primary Care Provider. Call [facility] ([phone]) or report to the closest Emergency Room. Call 911 if necessary. 12/19/24 1742 <Electronically signed by Abdulaziz Stratton MD> Cosigner Signature (if applicable): CC: Dr. Octavio Reza MD ~ Signed [facility] Work Phone: 1(620) 491-308206-03-2025 History of Present illness Narrative* Charis Lucas [facility] - 12/18/2024 9:00 AM EDT Primary Care [...] 150 5 155 166 6 166 211 22 12/14 186 6 158 5 94 177 221 7 200 158 20 12/13 186 6 138 175 5 231 218 7 92 155 22 12/12 86* 156 6 126 138 4 190 177 6 205 191 22 12/11 165 6 152 223 307 8 206 236 228 197 186 6 218 191 22 12/10 144 5 120 141 4 186 193 6 201 220 22 12/09 131 5 80* 208 6 166 [...] Lysine Itching Naprosyn [Naproxen] GI Upset Nausea Isataix-Ogi-Wam Red* Myalgia Tylenol-Codeine #3 * Vomiting Ventolin [...] Reported on 05/23/2024) 6 Each 4 Insulin Lincoln, Disposable, (BD ULTRA-FINE FADY PEN NEEDLE) 32 [...] Rx coverage: Payor: T MEDICARE / Plan: [facility] MEDIC[facility] PPO / Product Type: PPO [...] Charis Lucas, PharmD, BCACP Primary Care Clinical Curb And Gutter Laborer [facility]* Telephone Encounter - Pattie [...] needed at this time. Pattie Giles RN [facility]05-30-2025 Miscellaneous Notes* Telephone Encounter - Pattie Giles [...] time. Pattie Giles RN [facility] Telephone encounter Note * Telephone Encounter - [...] Brush LPN December 12, 2024 2:25 PM [facility]05-28-2025 Miscellaneous Notes* Telephone Encounter - Cesar Brush [...] 12, 2024 2:25 PM [facility] Telephone encounter Note * Telephone Encounter - Davon Wolfe APRN.CNP - 12/12/2024 12:45 PM EDT Noted and agree. [facility]05-28-2025 Miscellaneous Notes* Telephone Encounter - Davon Wolfe [...] back. Pt verbalizes understanding. [facility] Telephone encounter Note * Telephone Encounter - [...] us a call back. Pt verbalizes understanding. [facility]05-15-2025 Discharge summary [facility] Medical Records Department [address] [place] [address] Emergency Department Summary 11/29/24 MR#: [id number] Acct: [id number] Name: ATTILA KIDD Rep #:[id number] : 1945 79 From: Serg Solis MD PCP: Dr. Octavio Reza MD Status:RE [facility] ER Location: ED HPI History of Present [...] 200s, and even as high as in hiv974's. She presents with concern of her elevated blood sugar and she states that she can eat when she felt her blood sugar was dropping. No recent illness or cough. [facility] Medical History THAIS (obstructive sleep apnea) Hyperglycemia [...] 100 unit/mL 6 unit subcut TIDCM dm 0 01/0602/06/24 History subcutaneous solution omeprazole magnesium 20 [...] amiodarone Allergy Intermediate Swelling Verified 11/29/24 21:13 Guernsey And Derivatives Allergy Intermediate Hives Verified 11/29/24 [...] 11/29/24 21:13 Airborne (ascorbate sodium)) hydrocodone (From Moose) Allergy Mild dystonia Verified 11/29/24 21:13 lysine [...] AdvReac Severe HALLUCINATI Verified 11/29/24 21:13 ONS Uxqklny-FVC-GkG Reductase AdvReac Severe myalgias Verified 11/29/24 21:13 Inhibitor (Mdsqgic-Tgp-Lsp Reductase Inhibitor) amoxicillin (From Augmentin) AdvReac Other [...] with diabetes versus uncontrolled blood sugar/blood glucose. Wvkmo-to-otpf glucosewill be obtained. Blood work will be [...] at home. She will follow-up with her plant safety engineer tomorrow.Where of care glucose after 1L is 265. Once again, as she has not experiencing nausea or vomiting, I feel she can be discharged to take her 22 units of Lantus and follow-up with her plant safety engineer tomorrow. Patient motivated for discharge. is also [...] % (Auto) 64.8 Lymph % (Auto) 20.6 Cannon % (Auto) 7.2 Eos % (Auto) 6.6 [...] Clarity Clear Urine pH 6.0 Ur Specific Hayes 1.015 Urine Protein 15 H Urine Glucose [...] - Activity Restrictions/Additional Instructions: Follow-up with your plant safety engineer tomorrow. Call them with a log of your blood sugars as you havebeen. Keep a log of your blood sugars. Return with fever, chills, nausea, vomiting, abdominal pain,new or worsening symptoms. Print Language: Mongolian Disposition Disposition: Home, Self Care What to do if you have Problems For any increased pain, shortness of breath, bleeding, nausea or vomiting, chestpain, or any unexpected problems, contact your Primary Care Provider. Call [facility] ([phone]) or report tothe closest Emergency Room. Call 911 if necessary. 11/29/24 8168 Cosigner Signature (if applicable): CC: Dr. Octavio Reza MD ~ Signed [facility]05-15-2025 Discharge summary Author Serg Solis [facility] Note Date/Time November 29, 2024 11:31 pm [facility] Medical Records Department [address] [place] [address] Emergency Department Summary 11/29/24 MR#: [id number] Acct: [id number] Name: ATTILA KIDD Rep #:[id number] : 1945 79 From: Serg Solis MD [...] was dropping. No recent illness or cough. [facility] Medical History THAIS (obstructive sleep apnea) Hyperglycemia [...] amiodarone Allergy Intermediate Swelling Verified 11/29/24 21:13 Guernsey And Derivatives Allergy Intermediate Hives Verified 11/29/24 [...] 11/29/24 21:13 Airborne (ascorbate sodium)) hydrocodone (From Moose) Allergy Mild dystonia Verified 11/29/24 21:13 lysine [...] AdvReac Severe HALLUCINATI Verified 11/29/24 21:13 ONS Zuxmymv-HKP-UzB Reductase AdvReac Severe myalgias Verified 11/29/24 21:13 Inhibitor (Qwgntvk-Wqm-Vjy Reductase Inhibitor) amoxicillin (From Augmentin) AdvReac Other [...] with diabetes versus uncontrolled blood sugar/blood glucose. Gsddg-nw-cqmu glucose will be obtained. Blood work will [...] at home. She will follow-up with her plant safety engineer tomorrow. Where of care glucose after 1L is 265. Once again, as she has not experiencing nausea or vomiting, I feel she can be discharged to take her 22 units of Lantus and follow-up with her plant safety engineer tomorrow. Patient motivated for discharge. is also [...] % (Auto) 64.8 Lymph % (Auto) 20.6 Cannon % (Auto) 7.2 Eos % (Auto) 6.6 [...] Clarity Clear Urine pH 6.0 Ur Specific Hayes 1.015 Urine Protein 15 H Urine Glucose [...] - Activity Restrictions/Additional Instructions: Follow-up with your plant safety engineer tomorrow. Call them with a log of your blood sugars as you have been. Keep a log of your blood sugars. Return with fever, chills, nausea, vomiting, abdominal pain, new or worsening symptoms. Print Language: Mongolian Disposition Disposition: Home, Self Care What to do if you have Problems For any increased pain, shortness of breath, bleeding, nausea or vomiting, chestpain, or any unexpected problems, contact your Primary Care Provider. Call [facility] ([phone]) or report to the closest Emergency Room. Call 911 if necessary. 11/29/24 8879 <Electronically signed by Serg Solis MD> Cosigner Signature (if applicable): CC: Dr. Octavio Reza MD ~ Signed [facility] Work Phone: 1(141) 645-418705-01-2025 Evaluation note* Diagnosis Onset Date Resolution Status Admit Date Abnormal stress test acute November 15, 2024 8:05am THAIS (obstructive sleep apnea) acute November 15, 2024 8:05am Essential hypertension chronic Ma y 2024 8:05am Paroxysmal SVT (supraventric ular tachycardia) chronic November 15, 2024 8: 05am [facility] Work Phone: 1(126) 798-721105-01-2025 Evaluation note* Diagnosis Onset Date Resolution Status Admit Date Abnormal stress test acute November 15, 2024 8:05am THAIS (obstructive sleep apnea) acute November 15, 2024 8:05am Essential hypertension chronic Ma y 2024 8:05am Paroxysmal SVT (supraventric ular tachycardia) chronic November 15, 2024 8: 05am Abnormal stress test acute January 14, 2025 9:37am THAIS (obstructive sleep apnea) acute January 14, 2025 9:37am Essential hypertension chronic Ju ne 2024 9:37am Paroxysmal SVT (supraventric ular tachycardia) chronic January 14, 2025 9:37am [facility] Work Phone: 1(621) 908-234304-23-2025 NoteProm[facility]04-23-[facility] History of Present illness Narrative* Eliza Gilliland [...] 07, 2024 10:29 AM documented in this encounterTogus [facility]04-22-2025 History of Present illness Narrative* Charis Lucas [facility] - 11/06/2024 9:00 AM EDT Primary Care [...] Lysine Itching Naprosyn [Naproxen] GI Upset Nausea Yzekiad-Ipt-Kyt Red* Myalgia Tylenol-Codeine #3 * Vomiting Ventolin [...] Reported on 05/23/2024) 6 Each 4 Insulin Lincoln, Disposable, (BD ULTRA-FINE FADY PEN NEEDLE) 32 [...] 02/06/25 Next PharmD visit: 12/18/24 Charis Lucas, ArmandoD, BCACP Primary Care Clinical Curb And Gutter Laborer documented in this encounterTogus Va Medical Center04-22-2025 NotePromed[facility]04-16-2025 NotePromed[facility]04-16-2025 History of Present illness Narrative* Renetta Mcgee, JOSEFINA.COMPUTER NUMERICAL CONTROL PROGRAMMER - 10/31/2024 3:18 PM EDT OFFICE VISIT [...] are doing very well Working with ENDO RESIDENT DIRECTOR Sugars have run mostly between 105-177 with [...] has not had advanced carb counting with marine service station attendant She wants to eat different foods, but [...] in this interval not displayed. Recent Labs 12/24/2171709/14/2272305/16/23 0725 09/01/23 1247 12/07/23 1133 01/27/24 0712 05/23/24 12308/20/2418 TG 87 76 -- -- -- 77 [...] by mouth once daily as needed. Insulin Lincoln, Disposable, (BD ULTRA-FINE FADY PEN NEEDLE) 32 [...] Lysine Itching Naprosyn [Naproxen] GI Upset Nausea Yednzah-Zeg-Bul Red* Myalgia Tylenol-Codeine #3 * Vomiting Ventolin [...] (HCC) (primary encounter diagnosis) Discussed seeing ENDO RESIDENT DIRECTOR again for advanced carb counting, DM meal [...] office as needed FOLLOW UP WITH ENDO RESIDENT DIRECTOR as discussed Recommended diet: Low carbohydrate and [...] (MNT) Renetta Mcgee CNP documented in this encounterTogus [facility]04-14-2025 Telephone encounter Note * Telephone Encounter - [...] are scheduled this week. Tierney Deluca MA [facility]04-14-2025 Miscellaneous Notes* Telephone Encounter - Tierney Deluca MA - 10/29/2024 8:26 AM EDT Patients phoned and placed us on speaker phone with AttilaAltaf Brunoe called as requested by Norma last week [...] week. Tierney Deluca MA documented in this encounterTogus Va Medical Center04-09-2025 Radiology Diagnostic study note [facility] Imaging Services [address] [place] [id number] Venous Duplex Imag/Limited/Uni MR#: [id number] Acct: [id number] Name: ATTILA KIDD Rep #: [id number] : 1945 F 79 From: Marisela Herman MD PCP: Dr. Octavio Reza MD Status: OR E ER Study:Venous Duplex Imag/Limited/Uni Date of Exam: 10/24/24 Exam# [id number] Ordering Dr: Benjamín Stanford DO PROCEDURE: VENOUS [...] Octavio Reza MD; Dr. Benjamín Stanford DO Erinn Senior Health Physics Technician: Signed [facility]04-05-2025 Telephone encounter Note* Telephone Encounter - Octavio Reza MD - 10/20/2024 5:56 AM EDT Noted Follow up as needed for labile glucose [facility]04-05-2025 Miscellaneous Notes* Telephone Encounter - Octavio Reza MD - 10/20/2024 5:56 AM EDT Noted Follow up as needed for labile glucose * Telephone Encounter - Norma Devlin RN - 10/19/2024 4:34 PM EDT Call returned to Pt and spouse, Elijah. Confirmed Pt name & . Clarification received re: [facility] ED visit today after the 2 ocean lifeguard calls. Pt went to the ED for [...] the ED. Pt and spouse voice understanding. [facility] ED documents in scanned documents. Dr. Reza [...] possible. Cayla Johnston MA documented in this encounterTogus [facility] Medical Center04-04-2025 Telephone encounter Note * Telephone Encounter - Norma Devlin RN - 10/19/2024 4:34 PM EDT Call returned to Pt and spouse, Elijah. Confirmed Pt name & . Clarification received re: [facility] ED visit today after the 2 ocean lifeguard calls. Pt went to the ED for [...] the ED. Pt and spouse voice understanding. [facility] ED documents in scanned documents. Dr. Reza and Renetta Mcgee CNP notified. Norma Devlin RN October 19, 2024 4:54 PM [facility]04-04-20[facility] Telephone encounter Note* Telephone Encounter - Cayla Johnston MA - 10/19/2024 3:01 PM EDT Pt is calling with questions about her blood sugars and her medication. Sugar is running high and she is quite concerned. Would like to speak with a nurse in Endocrinology. Today if possible. Cayla Johnston MA [facility]04-04-2025 Radiology Diagnostic study note [facility] Imaging Services [address] [place], [place] [id number] HIP, UNI W/ Pelvis 2-3 Views MR#: [id number] Acct: [id number] Name: ATTILA KIDD Rep #: [id number] : 1945 F 79 From: Sunday Terrell MD PCP: Dr. Octavio Reza MD Status: RE G ER Study:HIP, UNI W/ Pelvis 2-3 Views Date of Ex am: 10/19/24 Exam# [id number] Ordering Dr: Jodi Sanches DO PROCEDURE: HIP, UNI W/ PELVIS 2-3 VIEWS 10/19/2024 REASON FOR EXAM: Left hip pain. TECHNIQUE: Three views of the left hip COMPARISON: None FINDINGS: Bones: Unremarkable Joints: Mild degree of joint space narrowing. Narrowing of the symphysis pubis. Soft tissues: Calcified phleboliths. Other: RAD/HIP, UNI W/ Pelvis 2-3 Views IMPRESSION: DEGENERATIVE OSTEOARTHROSIS. NO ACUTE FINDINGS. Reading Location: [facility] CC: Dr. Holland Sanches DO; Dr. Octavio Reza MD ~ Senior Health Physics Technician: Signed [facility]04-04-2025 Telephone encounter Note* Telephone Encounter - Darlene [...] is out of joint. Protocols used: Leg Anrl-QENSW-CC [place] [address]-04-2025 Miscellaneous Notes* Telephone Encounter - Darlene Mena [...] is out of joint. Protocols used: Leg Ktte-LGYQY-NF * Telephone Encounter - Asmita Tapia RN [...] no Protocols used: Diabetes - High Blood Qaqek-BRLKB-PU documented in this encounterTogus [facility] Medical Center04-04-2025 Telephone encounter Note * Telephone Encounter - [...] no Protocols used: Diabetes - High Blood Wwnri-XBPLZ-ZA [facility]03-31-2025 Instructions* Patient Instructions* Octavio Reza MD - [...] these tests in mid-December. documented in this encounterTogus Va Medical Center03-31-2025 NotePromed[facility]03-31-2025 History of Present illness Narrative* Octavio Reza MD - 10/15/2024 2:12 PM EDT This note was created using eduPadriter. Subjective Attila Kidd is a 79 year [...] then wash off in the morning Insulin Lincoln, Disposable, (BD ULTRA-FINE FADY PEN NEEDLE) 32 [...] Lymph 1.00 - 4.00 k/uL 0.81 (L) Cannon% % 7.6 Abs Cannon <0.87 k/uL 0.40 Eosin% % 4.9 Abs [...] (F51.01) - [facility] [...] given. Octavio Reza MD documented in this encounterTogus [facility] Medical Center03-20-2025 Telephone encounter Note * Telephone Encounter - Ritika Santos LPN - 10/04/2024 4:08 PM EDT Patient notified of providers message and verbalized understanding. [facility]03-20-2025 Miscellaneous Notes* Telephone Encounter - Ritika Santos [...] her bowels? Please advise documented in this encounterTogus Va Medical Center03-20-2025 Telephone encounter Note * Telephone Encounter - Lydia Grande APRN.CNS - 10/04/2024 3:46 PM EDT Take a Dulcolax and another dose of MiraLAX this evening. Try walking this evening as able. Recommend she drink plenty of fluids. If no results tonight then would repeat the medications in the morning. Call and let us know how she is doing tomorrow. [facility]03-20-[facility] Telephone encounter Note* Telephone Encounter - Cesar [...] to help with her bowels? Please advise [facility]03-17-2025 Telephone encounter Note* Telephone Encounter - Bianca Waldrop MA - 10/01/2024 2:47 PM EDT Patient informed and verbalized understanding. Will try the warm compresses. Bianca Waldrop MA [facility]03-17-2025 Miscellaneous Notes* Telephone Encounter - Bianca Waldrop [...] back on neck and put on some Marshallese Dream, Arthritis pain relief cream at 11 [...] about this. Please advise documented in this encounterTogus Va Medical Center03-17-2025 NotePromedica [facility]03-13-2025 Telephone encounter Note* Telephone Encounter - Octavio [...] or forehead to see if that helps? [facility]03-13-20[facility] Telephone encounter Note* Telephone Encounter - Cesar Brush LPN - 09/27/2024 2:29 PM EDT Patient calling she was having pain back on neck and put on some Marshallese Dream, Arthritis pain relief cream at 11 [...] sent to PCP about this. Please advise [facility]03-12-2025 Instructions* Patient Instructions* Octavio Reza MD - [...] with portion control as advised by your plant safety engineer. - Continue your exercise routine, including riding your stationary bike. - Drink plenty of water daily. - Follow up with your plant safety engineer and pharmacist as scheduled. - Next appointment on the of this month for routine follow-up and lab tests. documented in this encounterTogus Va Medical Center03-12-2025 History of Present illness Narrative* Octavio Reza MD - 09/26/2024 10:00 AM EDT Images from the original note were not included. This note was created using [employer]. Subjective Attila Kidd is a 79 year [...] She is under the care of an plant safety engineer and a PharmD, and has been following [...] (Patient not taking: Reported on 05/23/2024) Insulin Lincoln, Disposable, (BD ULTRA-FINE FADY PEN NEEDLE) 32 [...] progress. Octavio Reza MD documented in this encounterTogus Va Medical Center03-12-2025 NotePromedica [facility] Hospital03-11-2025 Telephone encounter Note* Telephone Encounter - Jeannine Mcelroy MA - 09/25/2024 2:44 PM EDT Denial states that kroger brand not covered but onetouch ultra is. Pharmacy dispense report shows been getting onetouch ultra monthly. Called [facility] and ran for onetouch ultra and covered went through as paid claim. Discarded denial. Jeannine Mcelroy MA [facility]03-11-2025 Miscellaneous Notes* Telephone Encounter - Jeannine Mcelroy MA - 09/25/2024 2:44 PM EDT Denial states that kroger brand not covered but onetouch ultra is. Pharmacy dispense report shows been getting onetouch ultra monthly. Called [facility] and ran for onetouch ultra and covered [...] 200 test strips dispensed in July. Called [facility] and they advised PA was valid till [...] to 09/25/24. High utilization for rec'd from [facility]. To pcp to sign. * Telephone Encounter - Sahara Moreno RN - 08/08/2024 11:47 AM EST Prior Authorization Documentation Prior authorization requested for the following medication: Medication: Blood sugar test strips - test 8 times a day- medically necessary for labile blood sugars (highs and lows) Provider: [employer] Name: [employer] Phone number: [phone] Patient ID number: [id number] Pharmacy Name: [facility] Telephone number: [phone] documented in this encounterTogus Va Medical Center03-09-2025 Telephone encounter Note * Telephone Encounter - [...] should be the next steps? Conferenced to [facility] grinder set up operator jig, [place], to speak with provider epic beacon specialists for Renetta Mcgee CNP. GO TO THE EMERGENCY ROOM OR CALL 911 IF: * You develop any new symptoms * Your condition worsens * You are concerned or anxious about your condition for any other reason. If you have any questions, you can call Nurse institutional asset manager back. [facility]03-09-2025 Miscellaneous Notes* Telephone Encounter - Susana Fuentes [...] should be the next steps? Conferenced to [facility] grinder set up operator jig, Clau, to speak with provider [facility] beacon specialists for Renetta Mcgee CNP. GO TO THE EMERGENCY ROOM OR CALL 911 IF: * You develop any new symptoms * Your condition worsens * You are concerned or anxious about your condition for any other reason. If you have any questions, you can call Nurse institutional asset manager back. documented in this encounterTogus Va Medical Center03-07-2025 Telephone encounter Note * Telephone Encounter - Vibha Peña LPN - 09/21/2024 1:44 PM EST Denial rec'd for kroger test strips. Approval rec'd for one touch ultra strips [facility]03-07-20[facility] Telephone encounter Note* Telephone Encounter - Sahara Moreno RN - 09/21/2024 1:22 PM EST Pt reports she went to [facility] ER last night with diarrhea. Reports she [...] call back with any questions or concerns. [facility]03-07-2025 Miscellaneous Notes* Telephone Encounter - Sahara Moreno RN - 09/21/2024 1:22 PM EST Pt reports she went to [facility] ER last night with diarrhea. Reports she [...] any questions or concerns. documented in this encounterTogus Va Medical Center03-07-2025 Discharge summary Author Nik Nunez [facility] Note Date/Time September 21, 2024 7:09 am [facility] Medical Records Department [address] [place] [address] Emergency Department Summary 09/21/24 MR#: [id number] Acct: [id number] Name: ATTILA KIDD Rep #:[id number] : 1945 79 From: Nik Nunez MD [...] denies any abdominal pain. She is fatigued. [facility] Medical History THAIS (obstructive sleep apnea) Hyperglycemia [...] amiodarone Allergy Intermediate Swelling Verified 09/21/24 06:21 Guernsey And Derivatives Allergy Intermediate Hives Verified 09/21/24 [...] 09/21/24 06:21 Airborne (ascorbate sodium)) hydrocodone (From Moose) Allergy Mild dystonia Verified 09/21/24 06:21 lysine [...] 06:21 hydrochlorothiazide Allergy Other Verified 09/21/24 06:21 Rvcbazn-QLL-XrO Reductase AdvReac Severe myalgias Verified 09/21/24 06:21 Inhibitor (Pghqvgd-Hfa-Iko Reductase Inhibitor) amoxicillin (From Augmentin) AdvReac Other [...] 1-2 Days if not improving Print Language: Mongolian Disposition Disposition: Home, Self Care What to do if you have Problems For any increased pain, shortness of breath, bleeding, nausea or vomiting, chestpain, or any unexpected problems, contact your Primary Care Provider. Call [facility] ([phone]) or report to the closest Emergency Room. Call 911 if necessary. 09/21/24 07 <Electronically signed by Nik Nunez MD> Cosigner Signature (if applicable): CC: Dr. Octavio Reza MD ~ Signed [facility] Work Phone: 1(554) 795-784003-07-2025 Discharge summary [facility] Medical Records Department [address] [place] [address] Emergency Department Summary 09/21/24 MR#: [id number] Acct: [id number] Name: ATTILA KIDD Rep #:[id number] : 1945 79 From: Nik Nunez MD [...] abdominal discomfort. Her blood sugar was in btz754q and 150s, and she was discharged with [...] denies any abdominal pain. She is fatigued. [facility] Medical History THAIS (obstructive sleep apnea) Hyperglycemia [...] tablet,delayed 81 mg PO DAILY heart heal 11/24/17 02/06/24 History release ramipril 10 mg [...] amiodarone Allergy Intermediate Swelling Verified 09/21/24 06:21 Guernsey And Derivatives Allergy Intermediate Hives Verified 09/21/24 [...] 09/21/24 06:21 Airborne (ascorbate sodium)) hydrocodone (From Moose) Allergy Mild dystonia Verified 09/21/24 06:21 lysine [...] 06:21 hydrochlorothiazide Allergy Other Verified 09/21/24 06:21 Uyvjfie-ADW-NpR Reductase AdvReac Severe myalgias Verified 09/21/24 06:21 Inhibitor (Dvsznar-Jkm-Uuz Reductase Inhibitor) amoxicillin (From Augmentin) AdvReac Other [...] 1-2 Days if not improving Print Language: Mongolian Disposition Disposition: Home, Self Care What to do if you have Problems For any increased pain, shortness of breath, bleeding, nausea or vomiting, chestpain, or any unexpected problems, contact your Primary Care Provider. Call [facility] ([phone]) or report tothe closest Emergency Room. Call 911 if necessary. 09/21/24 07 Cosigner Signature (if applicable): CC: Dr. Octavio Reza MD ~ Signed [facility]03-07-2025 Telephone encounter Note* Telephone Encounter - Tere Mcgrath RN - 09/21/2024 5:42 AM EST Reason for Call: Blood sugar 414 at 0530 today when she woke up, and 426 at time of call. Outcome: Call Acoustical Logging Engineer now. Established with [facility] Renetta Mcgee CNP. Patient and decline Endocrinology [facility] specialists provider page and prefer to go to [facility] ED now. Reason for Disposition Blood glucose > 400 mg/dL (22.2 mmol/L) Answer Assessment - Initial Assessment Questions 1. BLOOD GLUCOSE: Blood sugar 414 at 0530 today when she woke up, and 426 at time of call States blood sugar was fine at yesterdays [place] ED diarrhea visit. States she ate a [...] she was Type 1 all my life.. [facility] List - Type 1 DM. 6. INSULIN: [...] weakness. Protocols used: Diabetes - High Blood Zadxn-QTYTO-XG [facility]03-07-2025 Miscellaneous Notes* Telephone Encounter - Tere Mcgrath RN - 09/21/2024 5:42 AM EST Reason for Call: Blood sugar 414 at 0530 today when she woke up, and 426 at time of call. Outcome: Call Acoustical Logging Engineer now. Established with [facility] Endocrinology Renetta Mcgee CNP. Patient and decline Endocrinology epic beacon specialists provider page and prefer to go to [facility] ED now. Reason for Disposition Blood glucose > 400 mg/dL (22.2 mmol/L) Answer Assessment - Initial Assessment Questions 1. BLOOD GLUCOSE: Blood sugar 414 at 0530 today when she woke up, and 426 at time of call States blood sugar was fine at yesterdays [place] ED diarrhea visit. States she ate a [...] she was Type 1 all my life.. [facility] List - Type 1 DM. 6. INSULIN: [...] weakness. Protocols used: Diabetes - High Blood Jjwye-BNUDU-RE documented in this encounterTogus Va Medical Center03-06-2025 Discharge summary [facility] Medical Records Department [address] [place] [address] Emergency Department Summary 09/20/24 MR#: [id number] Acct: [id number] Name: ATTILA KIDD Rep #:[id number] : 1945 79 From: Lars Dahl DO [...] valuation management. Patient denies any sick contacts. [facility] Medical History THAIS (obstructive sleep apnea) Hyperglycemia [...] amiodarone Allergy Intermediate Swelling Verified 09/20/24 17:49 [place] And Derivatives Allergy Intermediate Hives Verified 09/20/24 [...] 09/20/24 17:49 Airborne (ascorbate sodium)) hydrocodone (From Moose) Allergy Mild dystonia Verified 09/20/24 17:49 lysine [...] 17:49 hydrochlorothiazide Allergy Other Verified 09/20/24 17:49 Xpfimfo-KFG-XtI Reductase AdvReac Severe myalgias Verified 09/20/24 17:49 Inhibitor (Jurwrwg-Ynn-Bik Reductase Inhibitor) amoxicillin (From Augmentin) AdvReac Other [...] Patient follow commands though she was at [facility] year [id number] Skin: Warm, dry, intact no rashes or [...] 90.2 H Lymph % (Auto) 3.7 L Cannon % (Auto) 4.5 Eos % (Auto) 1.2 [...] Sl. Cloudy Urine pH 6.0 Ur Specific Hayes 1.025 Urine Protein 30 H Urine Glucose [...] use of iterative reconstruction technique). [facility] Triage Chief Complaint: General Illness [...] with your primary care physician Print Language: Mongolian Disposition Disposition: Home, Self Care What to do if you have Problems For any increased pain, shortness of breath, bleeding, nausea or vomiting, chestpain, or any unexpected problems, contact your Primary Care Provider. Call [facility] ([phone]) or report tothe closest Emergency Room. Call 911 if necessary. 09/20/24 2028 Cosigner Signature (if applicable): CC: Dr. Octavio Reza MD ~ Signed [facility]03-06-2025 Radiology Diagnostic study note [facility] Imaging Services [address] [place], [place] [id number] Abdomen/Pelvis W IV Cont ONLY MR#: [id number] Acct: [id number] Name: ATTILA KIDD Rep #: [id number] : 1945 F 79 From: Karen Fenton DO PCP: Dr. Octavio Reza MD Status: RE G ER Study:Abdomen/Pelvis W IV Cont ONLY Date of E xam: 09/20/24 Exam# [id number] Ordering Dr: Yeimi Dahl DO PROCEDURE: ABDOMEN/PELVIS W IV CONT [...] use of iterative reconstruction technique). Reading Location: [facility] CC: Dr. Octavio Reza MD; Dr. Lars Dahl DO ~ Senior Health Physics Technician: Signed [facility]03-06-2025 Telephone encounter Note* Telephone Encounter - Vibha Peña LPN - 09/20/2024 3:55 PM EST MORE QUESTIONS REC'D TO COMPLETE. THIS WAS DONE AND FAXED BACK. [facility]03-06-2025 Telephone encounter Note* Telephone Encounter - Vibha Peña LPN - 09/20/2024 2:55 PM EST Was able to complete electronic PA for testing 8 times daily [facility]03-06-2025 Discharge summary Author Lars Dahl [facility] Note Date/Time September 20, 2024 11:1 6pm [facility] Medical Records Department [address] [place] [address] Emergency Department Summary 09/20/24 MR#: [id number] Acct: [id number] Name: ATTILA KIDD Rep #:[id number] : 1945 79 From: Lars Dahl DO [...] valuation management. Patient denies any sick contacts. [facility] Medical History THAIS (obstructive sleep apnea) Hyperglycemia [...] amiodarone Allergy Intermediate Swelling Verified 09/20/24 17:49 [place] And Derivatives Allergy Intermediate Hives Verified 09/20/24 [...] 09/20/24 17:49 Airborne (ascorbate sodium)) hydrocodone (From Moose) Allergy Mild dystonia Verified 09/20/24 17:49 lysine [...] 17:49 hydrochlorothiazide Allergy Other Verified 09/20/24 17:49 Kugcbst-BUZ-AeT Reductase AdvReac Severe myalgias Verified 09/20/24 17:49 Inhibitor (Nnzoqwi-Kus-Jlw Reductase Inhibitor) amoxicillin (From Augmentin) AdvReac Other [...] Patient follow commands though she was at [facility] year [id number] Skin: Warm, dry, intact no rashes or [...] 90.2 H Lymph % (Auto) 3.7 L Cannon % (Auto) 4.5 Eos % (Auto) 1.2 [...] Sl. Cloudy Urine pH 6.0 Ur Specific Hayes 1.025 Urine Protein 30 H Urine Glucose [...] use of iterative reconstruction technique). [facility] Dis[facility] Plan Triage Chief Complaint: General Illness [...] with your primary care physician Print Language: Mongolian Disposition Disposition: Home, Self Care What to do if you have Problems For any increased pain, shortness of breath, bleeding, nausea or vomiting, chestpain, or any unexpected problems, contact your Primary Care Provider. Call [facility] ([phone]) or report to the closest Emergency Room. Call 911 if necessary. 09/20/24 0100 <Electronically signed by Lars Dahl DO> Cosigner Signature (if applicable): CC: Dr. Octavio Reza MD ~ Signed [facility] Work Phone: 1(677) 133-330902-27-2025 Telephone encounter Note* Telephone Encounter - Tierney Sun RN - 09/13/2024 2:55 AM EST Spouse calling regarding blood sugar 271 and wants to know what Insulin to give. Conferenced to [facility] Answering Service [[phone] ] to speak with provider epic beacon specialists for Renetta Mcgee [facility] - Endocrinology. [facility]02-27-2025 Miscellaneous Notes* Telephone Encounter - Tierney Sun RN - 09/13/2024 2:55 AM EST Spouse calling regarding blood sugar 271 and wants to know what Insulin to give. Conferenced to [facility] [[phone] ] to speak with provider epic beacon specialists for Renetta Mcgee COMPUTER NUMERICAL CONTROL PROGRAMMER - Endocrinology. documented in this encounterTogus [facility] Center02-25-2025 Telephone encounter Note * Telephone Encounter - Charis Lucas RP - 09/11/2024 3:55 PM EST Called and [...] PharmD f/up on 11/06/24. Charis Lucas PharmD, EKATERINACP Primary Care Clinical Curb And Gutter Laborer [facility] Work Phone: 1(522) 479-584802-25-2025 Miscellaneous Notes* Telephone Encounter - Charis Lucas [...] PharmD f/up on 11/06/24. Charis Lucas PharmD, BCACP Primary Care Clinical Curb And Gutter Laborer * Telephone Encounter - Darlene Mena RN [...] advise, Darlene Mena RN documented in this encounterTogus [facility] Center02-24-2025 Telephone encounter Note * Telephone Encounter - [...] Please review and advise, Darlene Mena RN [facility]02-24-2025 History of Present illness Narrative* Charis Lucas RPh - 09/10/2024 9:00 AM EST Primary Care [...] Lysine Itching Naprosyn [Naproxen] GI Upset Nausea Oofgsjh-Uje-Fnq Red* Myalgia Tylenol-Codeine #3 * Vomiting Ventolin [...] Reported on 05/23/2024) 6 Each 4 Insulin Lincoln, Disposable, (BD ULTRA-FINE FADY PEN NEEDLE) 32 [...] Adherence: denies missed doses. Rx coverage: Payor: [facility] MEDIC[facility] / Plan: [employer] MEDICARE PPO / Product Type: PPO / [...] Charis Lucas, PharmD, BCACP Primary Care Clinical Curb And Gutter Laborer documented in this encounterTogus Va Medical Center02-24-2025 NotePromedica Bay Park Hospital02-20-2025 Telephone encounter Note* Telephone Encounter - Parris Eckert RN - 09/06/2024 7:11 PM EST Pt called and is notified of providers results and instructions. Pt voices understanding. Parris Eckert RN [facility]02-20-2025 Miscellaneous Notes* Telephone Encounter - Parris Eckert [...] patient. Asmita Tapia RN documented in this encounterTogus Va Medical Center02-20-2025 Telephone encounter Note * Telephone Encounter - [...] fish, edamame, ground flax seed and walnuts. [facility]02-20-2025 Telephone encounter Note* Telephone Encounter - Asmita [...] 10/15/24. Please advise patient. Asmita Tapia RN [facility]02-19-2025 Telephone encounter Note* Telephone Encounter - Mel Morin RN - 09/05/2024 2:32 PM EST Patient called back and the below results were given. Mel Morin RN [facility]02-19-2025 Miscellaneous Notes* Telephone Encounter - Mel Morin [...] of August. Please call patient back at [phone]. She does not use MyChart routinely. documented in this encounterTogus Va Medical Center02-19-2025 Telephone encounter Note * Telephone Encounter - Norma Devlin RN - 09/05/2024 2:18 PM EST Call placed to Pt - unable to LM, voicemail box full. If Pt returns call to office, please relay the below notation per Renetta Mcgee CNP to her. Norma Devlin RN September 05, 2024 2:18 PM [facility]02-19-2025 Telephone encounter Note* Telephone Encounter - Renetta Mcgee APRN.CNP - 09/05/2024 7:42 AM EST Please call the patient. Overall her labs are very good. A1C was 7.1 % and well controlled Cholesterol normal, however, LDL slightly elevated BUN very slightly elevated, make sure to drink 150 oz of water daily UNLESS on fluid restrictions Remainder of Labs WNL [facility]02-18-2025 Telephone encounter Note* Telephone Encounter - Trudy Wang MA - 09/04/2024 3:15 PM EST Patient called in asking for lab results that were completed at the beginning of August. Please call patient back at [phone]. She does not use MyChart routinely. [facility]02-07-2025 Telephone encounter Note* Telephone Encounter - Octavio Reza MD - 08/24/2024 8:58 AM EST Reviewed with spouse. Sent pended RX. Discussed that gives logs to Marcela and she works with Charis Day routinely. Discussed doing log for a month. Not sure if will need PA every month or just till deductible met. [facility]02-03-2025 Telephone encounter Note* Telephone Encounter - Jeannine Mcelroy MA - 08/20/2024 4:24 PM EST Pharmacy dispense shows 200 test strips dispensed in July. Called [facility] and they advised PA was [...] can re-complete next month Jeannine Mcelroy MA [facility]02-03-2025 Telephone encounter Note* Telephone Encounter - Rakel Agosto LPN - 08/20/2024 8:27 AM EST is calling to check on status of prior auth. would like a call back. Rakel Agosto LPN [facility]01-31-2025 NotePromedica Bay Park Hospital01-31-2025 History of Present illness Narrative* Phoebe Carrion [...] 2023 - found in scanned docs - HM updated Reason for Outreach Care Gap/HCC or Scheduling Wellness Visits Care Gaps due: JUAN C Patient Contacted: Spoke to patient/parent/or legal guardian Patient identified by name and : Yes Care Gap/HCC/Scheduling Wellness actions taken: Patient declined: Patient will contact office directly to schedule Navigation Signature: Phoebe Carrion MA August 17, 2024 8:51 AM documented in this encounterTogus Va Medical Center01-28-2025 Telephone encounter Note * Telephone Encounter - Vibha Peña LPN - 08/14/2024 11:00 AM EST Form completed and faxed 08/10/24. [facility]01-23-2025 Telephone encounter Note* Telephone Encounter - Pattie [...] to two eggs in the AM with Hewitt toast. Salads for lunch and dinner with [...] abdomen pain, bloating, fever, vomiting Protocols used: Dqwvnhsknpzr-IPCHC-NQ [facility]01-23-2025 Miscellaneous Notes* Telephone Encounter - Pattie Giles [...] to two eggs in the AM with Hewitt toast. Salads for lunch and dinner with [...] abdomen pain, bloating, fever, vomiting Protocols used: Hprntgisruek-ETSRT-HE documented in this encounterTogus Va Medical Center01-22-2025 Telephone encounter Note * Telephone Encounter - Vibha Peña LPN - 08/08/2024 1:07 PM EST Unable to complete electronically. Previously approved from 09/26/23 to 09/25/24. High utilization for rec'd from [facility]. To pcp to sign. [facility]01-22-2025 Telephone encounter Note* Telephone Encounter - Sahara Moreno RN - 08/08/2024 11:47 AM EST Prior Authorization Documentation Prior authorization requested for the following medication: Medication: Blood sugar test strips - test 8 times a day- medically necessary for labile blood sugars (highs and lows) Provider: [employer] Company Name: [employer] Phone number: [phone] Patient ID number: [id number] Pharmacy Name: [facility] Telephone number: [phone] [facility]01-15-2025 Telephone encounter Note* Telephone Encounter - Pattie [...] this time. Closing TE. Pattie Giles RN [facility]01-15-2025 Miscellaneous Notes* Telephone Encounter - Pattie Giles [...] TE. Pattie Giles RN documented in this encounterTogus Va Medical Center01-14-2025 History of Present illness Narrative* Charis Lucas RP - 07/31/2024 9:00 AM EST Primary Care [...] dose of Lantus than prescribed *had 2 deployment specialist cupcakes to bring up BGs felt [...] 173/4 74 179/5 170 182/6 106 108/22 1 81(snack) 112/3 147 165 154/5 139 153/6 [...] Lysine Itching Naprosyn [Naproxen] GI Upset Nausea Woeuwzx-Sbv-Oyp Red* Myalgia Tylenol-Codeine #3 * Vomiting Ventolin [...] Reported on 05/23/2024) 6 Each 4 Insulin Lincoln, Disposable, (BD ULTRA-FINE FADY PEN NEEDLE) 32 [...] Rx coverage: Payor: [employer] MEDICARE / Plan: T MEDICARE PPO / Product Type: PPO / [...] 11/28/24 Next PharmD visit: 09/10/24 Charis Lucas, Willie, BCACP Primary Care Clinical Curb And Gutter Laborer documented in this encounterTogus Va Medical Center01-14-2025 NotePromedica Bay Park Hospital01-10-2025 Telephone encounter Note* Telephone Encounter - Pattie [...] by EC. Patient requests call back at [phone] once sent. Pattie Giles RN July 27, 2024 2:28 PM [facility]01-10-2025 Miscellaneous Notes* Telephone Encounter - Pattie Giles [...] it was very effective. Originally ordered by . Patient requests call back at [phone] once sent. Pattie Giles RN July 27, 2024 2:28 PM documented in this encounterTogus Va Medical Center01-02-2025 Telephone encounter Note * Telephone Encounter - Ritika Santos LPN - 07/19/2024 4:01 PM EST Patient and were given providers instructions and verbalized understanding. [facility]01-02-2025 Miscellaneous Notes* Telephone Encounter - Ritika Santos [...] excerpted from protocol: Diabetes - High Blood Ymmue-ATXVT-AS TREATMENT : HOME CARE - LIQUIDS: * [...] possible. Asmita Tapia RN documented in this encounterTogus Va Medical Center01-02-2025 Telephone encounter Note * Telephone Encounter - Lydia Grande APRN.CNS - 07/19/2024 3:45 PM EST Agree with the home treatment measures noted below and her Insulin Sliding Scale instructions for dinner. She can also walk or other activity to help bring her glucose level down. [facility]01-02-2025 Telephone encounter Note* Telephone Encounter - Asmita [...] excerpted from protocol: Diabetes - High Blood Sdklc-EVJCJ-TH TREATMENT : HOME CARE - LIQUIDS: * [...] well today. If possible. Asmita Tapia RN [facility]12-30-2024 Telephone encounter Note* Telephone Encounter - Yvette Cohen LPN - 07/16/2024 8:38 AM EST Pt calling for refills. Reviewed meds requested by pt. [facility] Pt believes she is looking at an old bottle. She will check with pharm and call if any problems. Yvette Cohen LPN [facility]12-30-2024 Miscellaneous Notes* Telephone Encounter - Yvette Cohen LPN - 07/16/2024 8:38 AM EST Pt calling for refills. Reviewed meds requested by pt. Epic is showing there are refills at [facility]. Pt believes she is looking at an old bottle. She will check with pharm and call if any problems. Yvette Cohen LPN documented in this encounterTogus Va Medical Center12-17-2024 Instructions* Patient Instructions* Lydia Grande APRN.CNS - 07/03/2024 3:12 PM EST Continue with your usual blood pressure medications. Check your blood pressure once daily around noon. If your blood pressure is greater than 150/80 take an additional 1/2 tablet of 50 mg metoprolol tartrate documented in this encounterTogus Va Medical Center12-17-2024 NotePromedica Bay Park Hospital12-17-2024 History of Present illness Narrative* Lydia Grande APRN.CNS - 07/03/2024 2:00 PM EST SUBJECTIVE: DTaP,Tdap,Td [...] Remission (Hcc) Nocturnal Hypoxemia Presents today for [facility] ER visit follow-up. She was seen again [...] 09/01/2023 144/74 06/23/2023 122/[address] Marin [id number]. [facility], Dr. Brasher. DIABETES MELLITUS: Without report [...] HENT: Head: Normocephalic and atraumatic. Mouth/Throat: Lips: Gosnell. Mouth: Mucous membranes are moist. Eyes: Conjunctiva/sclera: [...] Lysine Itching Naprosyn [Naproxen] GI Upset Nausea Axmplbd-Rcn-Ymc Red* Myalgia Tylenol-Codeine #3 * Vomiting Ventolin [...] then wash off in the morning Insulin Lincoln, Disposable, (BD ULTRA-FINE FADY PEN NEEDLE) 32 [...] controlled, continue current treatment unchanged Lydia Grande APRN.VP CUSTOMER SERVICE Medical Decision Making: Problems: Moderate: 1+ chronic illnesses with change Data: Unique source(s) for external note(s) reviewed: 1 Unique test result(s) reviewed: 3+ Risk: Moderate: Drug management Medical Decision Making Level: 4 - Moderate documented in this encounterTogus Va Medical Center12-16-2024 Telephone encounter Note * Telephone Encounter - Octavio Reza MD - 07/02/2024 5:08 PM EST Noted. Will see how she is doing tomorrow when sees Lydia. [facility]12-16-2024 Miscellaneous Notes* Telephone Encounter - Octavio Reza [...] you. Asmita Tapia RN documented in this encounterTogus Va Medical Center12-16-2024 Telephone encounter Note * Telephone Encounter - [...] severe symptoms as discussed. Asmita Tapia RN [facility]12-16-2024 Telephone encounter Note* Telephone Encounter - Asmita [...] any severe sx's again. Asmita Tapia RN [facility]12-15-2024 Telephone encounter Note* Telephone Encounter - Octavio Reza MD - 07/01/2024 5:00 PM EST No significant growth on the urine culture See whether symptoms improved with taking macrobid. If symptoms persist despite taking antibiotic and despite urine cultures not growing any significant bacteria, consider follow up with urology for further evaluation. [facility]12-13-2024 Telephone encounter Note* Telephone Encounter - [...] when able. Thank you. Asmita Tapia RN [facility]12-12-2024 Telephone encounter Note* Telephone Encounter - Asmita Tapia RN - 06/28/2024 8:58 AM EST Patient notified. Asmita Tapia RN [facility]12-12-2024 Miscellaneous Notes* Telephone Encounter - Asmita Tapia [...] advise patient on her spouse's cell #: [phone]. Thank you. documented in this encounterTogus Va Medical Center12-11-2024 Telephone encounter Note * Telephone Encounter - [...] 5 days. Authorizing Provider: OCTAVIO REZA MD [facility]12-11-2024 Telephone encounter Note* Telephone Encounter - Madeline Quintana LPN - 06/27/2024 5:59 PM EST Copy of message printed and given to PCP to address. Madeline Quintana LPN [facility]12-11-2024 Telephone encounter Note* Telephone Encounter - Palma Gibson LPN - 06/27/2024 9:10 AM EST Patient calling, checking on status of message. Please advise. [facility]12-10-2024 Telephone encounter Note* Telephone Encounter - [...] advise patient on her spouse's cell #: [phone]. Thank you. [facility]12-05-2024 NotePromedica Bay Park Hospital12-05-2024 History of Present illness Narrative* Rama Mckeon MA - 06/21/2024 9:23 AM EST POPULATION HEALTH NAVIGATION OUTREACH Action/I June 21, 2024 AWV INITIATIVE Reason for Outreach Care Gap/HCC or Scheduling Wellness Visits Care Gaps due: Medicare Annual Wellness Visit Patient Contacted: Unable or unnecessary to reach patient: Flipped existing appointment Updated appointment notes Navigation Signature: Rama Mckeon MA June 21, 2024 9:23 AM documented in this encounterTogus Va Medical Center12-03-2024 Telephone encounter Note * Telephone Encounter - [...] Mena RN June 19, 2024 9:31 AM [facility]12-03-2024 Miscellaneous Notes* Telephone Encounter - Darlene Mena [...] 19, 2024 9:31 AM documented in this encounterTogus Va Medical Center12-03-2024 History of Present illness Narrative* Charis Lucas [facility] - 06/19/2024 9:00 AM EST Primary Care [...] PP Bedtime 06/19 160, 184/4 148, 138 12/2 219, 229/5 199/6 165 141, 78*, 249/7 [...] Lysine Itching Naprosyn [Naproxen] GI Upset Nausea Cwypdeg-Vkp-Myi Red* Myalgia Tylenol-Codeine #3 * Vomiting Ventolin [...] Reported on 05/23/2024) 6 Each 4 Insulin Lincoln, Disposable, (BD ULTRA-FINE FADY PEN NEEDLE) 32 [...] Rx coverage: Payor: T MEDICARE / [facility] / Product Type: PPO / [...] endo visit: 11/28/24 Next PharmD visit: 07/31/24 Charis Lucas, PharmD, BCACP Primary Care Clinical Curb And Gutter Laborer documented in this encounterTogus Va Medical Center12-03-2024 NotePromedica Bay Park Hospital11-27-2024 Evaluation note* Diagnosis Onset Date Resolution Status Admit Date Abnormal stress test acute Nove mb2023 2:00pm THAIS (obstructive sleep apnea) acute June 13, 2024 2:00pm Essential hypertension chronic No vember 2023 2:00pm Paroxysmal SVT (supraventricular tachycardia) chronic N ovember 2023 2:00pm [facility] Work Phone: 1(572) 523-386611-25-2024 Instructions* Patient Instructions* Octavio Reza MD - 06/11/2024 10:39 AM EST - Switch from Bactrim to Macrobid for your bladder infection; [facility] - Take 22 units of insulin glargine at bedtime consistently. - Treat any blood sugar readings below 70 with fast-acting glucose (e.g., glucose tablets, sugary candy, 4 ounces of juice, or Gatorade). - Monitor your blood sugar levels regularly and record them. - Refills provided for Zolpidem, albuterol, amlodipine, metoprolol, and Symbicort; picker / packer medications from [facility] as needed. - Elevate your feet when possible and continue wearing compression stockings to manage swelling. - Continue riding your bicycle for exercise. - Next follow-up appointment in 4 months. documented in this encounterTogus Va Medical Center11-25-2024 NotePromedica Bay Park Hospital11-25-2024 History of Present illness Narrative* Octavio Reza MD - 06/11/2024 10:03 AM EST This note was created using eduPadriter. Subjective Attila Kidd is a 78 year old female. Patient presents with: 4 month follow up: [facility] ER 06/08/24 follow up for UTI. Treated [...] DM, presenting for a 4- month follow-up [facility] ER visit for a UTI. [...] of complication Mitral valve disorders(424.0) Obesity, unspecified THIAS (obstructive sleep apnea) Osteoarthritis of multiple joints [...] (Patient not taking: Reported on 05/23/2024) Insulin Lincoln, Disposable, (BD ULTRA-FINE FADY PEN NEEDLE) 32 [...] and 24-hour Holter monitor. - Follow-up with spudder Dr. Bosch scheduled for Tuesday. # Essential hypertension (I10) - Managed with amlodipine and ramipril. - Refills ordered for both medications. - Blood pressure well-controlled. # Stasis edema of both lower extremities (I87.303) - Mild edema noted. - Continues to use compression stockings and elevate legs. - Encouraged regular leg exercises and cycling to promote venous return. Octavio Reza MD documented in this encounterTogus Va Medical Center11-20-2024 NotePromedica Bay Park Hospital11-20-2024 History of Present illness Narrative* Federica Alonzo [...] Program Details Chronic Disease Management Status: Declined CD Patient declined - After starting program Effective [...] 06, 2024 11:52 AM documented in this encounterTogus Va Medical Center11-15-2024 Telephone encounter Note * Telephone Encounter - Ritika Santos LPN - 06/01/2024 9:46 AM EST Patients notified of providers message and verbalized understanding [facility]11-15-2024 Miscellaneous Notes* Telephone Encounter - Ritika Santos LPN - 06/01/2024 9:46 AM EST Patients notified of providers message and verbalized understanding * Telephone Encounter - Lydia Grande APRN.CNS - 06/01/2024 8:39 AM EST Looks like labs are due in July / endocrine orders. * Telephone Encounter - Cayla Lynne LPN - 05/31/2024 8:05 AM EST Spouse called to check and see if lab work is needed for pt before her apt on 06-11-24. Please advise spouse. PH: [phone] Cayla Lynne LPN documented in this encounterTogus Va Medical Center11-15-2024 Telephone encounter Note * Telephone Encounter - Lydia Grande APRN.CNS - 06/01/2024 8:39 AM EST Looks like labs are due in July / endocrine orders. [facility]11-14-2024 Telephone encounter Note* Telephone Encounter - Cayla Lynne LPN - 05/31/2024 8:05 AM EST Spouse called to check and see if lab work is needed for pt before her apt on 06-11-24. Please advise spouse. PH: [phone] Cayla Lynne LPN [facility]11-08-2024 Miscellaneous Notes* Telephone Encounter - Norma Devlin [...] 25, 2024 10:56 AM documented in this encounterTogus Va Medical [facility] Telephone encounter Note * Telephone Encounter - [...] Devlin RN May 25, 2024 10:56 AM [facility]11-08-2024 Miscellaneous Notes* Telephone Encounter - Gloria Rand [...] took 5 units of Novolog with lunch 1503 986 6363 84 7014 635 8460 190 Took 6 units of Novolog with supper 9939 916 2635 155 took new dose of 20 units Lantus : 0423 123 0600 163 took 4 units of Novolog with breakfast 0940 193 1113 218 took 6 units of Novolog with lunch 1378 949 2997 230 took 7 units of Novolog with [...] :n/a Protocols used: Diabetes - High Blood Lgeol-KDBZJ-RZ * Telephone Encounter - rTudy Wang MA - 05/25/2024 8:58 AM EST Patient and contacted the office to report that she was in the ED early this morning. Patient was not able to sleep last night. Blood sugar reading at 2:15 am was 253 and the patient was feeling heart palpitations so her took her to [facility]. Dinner last night was a [...] call back on the husbands phone at [phone]. documented in this encounterT[facility] Telephone encounter Note * Telephone Encounter - [...] took 5 units of Novolog with lunch 8018 048 2457 84 8690 972 6293 190 Took 6 units of Novolog with supper 4525 165 7117 155 took new dose of 20 units Lantus : 0423 123 0600 163 took 4 units of Novolog with breakfast 0940 193 1113 218 took 6 units of Novolog with lunch 8654 833 1748 230 took 7 units of Novolog with [...] :n/a Protocols used: Diabetes - High Blood Uinev-XKBIR-QD [facility]11-08-2024 Telephone encounter Note* Telephone Encounter - Trudy Wang MA - 05/25/2024 8:58 AM EST Patient and contacted the office to report that she was in the ED early this morning. Patient was not able to sleep last night. Blood sugar reading at 2:15 am was 253 and the patient was feeling heart palpitations so her took her to [facility]. Dinner last night was a [...] call back on the husbands phone at [phone]. [facility]11-06-2024 History of Present illness Narrative* Renetta Mcgee, JOSEFINA.COMPUTER NUMERICAL CONTROL PROGRAMMER - 05/23/2024 12:45 PM EST OFFICE VISIT [...] are doing very well Working with ENDO RESIDENT DIRECTOR Sugars have run mostly between 105-177 with [...] 1 capsule by mouth once daily. Insulin Lincoln, Disposable, (BD ULTRA-FINE FADY PEN NEEDLE) 32 [...] Lysine Itching Naprosyn [Naproxen] GI Upset Nausea Qcyrofj-Agp-Dgq Red* Myalgia Tylenol-Codeine #3 * Vomiting Ventolin [...] controlled, without complications (HCC) (primary encounter diagnosis) EXCELLENT CONTROL on blood [...] (MNT) Renetta Mcgee CNP documented in this encounterTogus Va [facility] Center11-06-2024 [facility]Prom[facility]-2024 NotePromed[facility]11-05-2024 History of Present illness Narrative* Phoebe Carrion MA - 05/22/2024 2:03 PM EST POPULATION HEALTH NAVIGATION OUTREACH Action/ Value Hub Outreach Navigator: Patient requesting to cancel 06/15 sleep medicine appointment. Patient will reschedule at a later date, no need to call. Thank you. [place] Active: Yes Outreach to patient Appointment cancelled per patient's request. No outreach needed per RN. Reason for Outreach Value [facility] Care Gaps due: N/A Patient Contacted: Unable or unnecessary to reach patient: Updated appointment notes Navigation Signature: Phoebe Carrion MA May 22, 2024 2:03 PM * Federica Alonzo RN - 05/22/2024 10:47 AM EST Images from the original note were not included. [facility] Telephonic Outreach Provider Action/FYI Navigator: Patient requesting to cancel 06/15 sleep medicine appointment. Patient will reschedule at a later date, no need to call. Thank you. Patient identified by Name and Date of . Discussed care with patient. Program Details Chronic Disease Management Status: Enrolled Effective Dates: 04/04/2024 - present Responsible Staff: Federica Alonzo RN Support and Services: Diabetes, Hypertension Program [...] is High Blood Pressure Disposition Based on supervisor contact and service clerks, the following disposition is advised: No action needed Federica Alonzo RN May 22, 2024 10:53 AM documented in this encounterTogus [facility] Center11-05-2024 NotePromedica Bay Park Hospital10-25-2024 Telephone encounter Note* Telephone Encounter - Norma [...] the case that they [facility] Norma Devlin RN May 11, 2024 8:57 AM [facility]10-25-2024 Miscellaneous Notes* Telephone Encounter - Norma Devlin [...] and has herfollow-up appointment with the dentist Tuesday morning. Advised Pt and spouse to use this [...] the case that they [facility] Norma Devlin RN May 11, 2024 8:57 [...] has only been eating prepackaged salads from [facility]. Patient is concerned about blood sugars going [...] again. Please reach out to patient at [phone]. documented in this encounterTogus [facility] Center10-24-2024 Telephone encounter Note * Telephone Encounter - [...] - 4 units 301-350 - 5 units [facility]10-24-2024 Telephone encounter Note* Telephone Encounter - Trudy [...] has only been eating prepackaged salads from [email or web address]. Patient is concerned about blood sugars going [...] again. Please reach out to patient at [phone]. [facility]10-24-2024 Telephone encounter Note* Telephone Encounter - Mel Morin RN - 05/10/2024 12:15 PM EDT Patient called and notified of the below recommendations. Mel Morin RN [facility]10-24-2024 Miscellaneous Notes* Telephone Encounter - Mel Morin [...] scale. Mel Morin RN documented in this encounterTogus Va Medical Center10-24-2024 Telephone encounter Note * Telephone Encounter - Renetta Mcgee APRN.CNP - 05/10/2024 9:47 AM EDT Noted, agree that infection can increase blood sugars Given patient age, I am not concerned about her acutely elevated blood sugar, tenzin with the infection. Use sliding scale as directed. [facility]10-24-2024 Telephone encounter Note* Telephone Encounter - Mel [...] in her sliding scale. Mel Morin RN [facility]10-21-2024 NotePromedica Bay Park Hospital10-21-2024 History of Present illness Narrative* Davon Wolfe APRN.COMPUTER NUMERICAL CONTROL PROGRAMMER - 05/07/2024 3:17 PM EDT SUBJECTIVE Attila Kidd is a 78 year old female here today for a check up on her medical problems. Chief Complaint Patient presents with: Recheck: [facility] ER 05/05/24 shortness of breath with chest discomfort was note arrhythmia Dental Problem: questions a tooth abscess. HPI Attila Kidd is a 78 year old female. She is an established patient of Octavio Reza MD. Here today for ER follow up. Seen in the ER at [facility] on 05/04/2024. Went to ER for SOB [...] (Patient not taking: Reported on 05/07/2024) Insulin Lincoln, Disposable, (BD ULTRA-FINE FADY PEN NEEDLE) 32 [...] Lysine Itching Naprosyn [Naproxen] GI Upset Nausea Aysagmk-Ozz-Adh Red* Myalgia Tylenol-Codeine #3 * Vomiting Ventolin [Albuterol* GI Upset, Vomiting ACTIVE PROBLEM LIST Nocturnal Hypoxemia - 09/22/2023 Major Depressive Disorder, Recurrent, in Full Remission ([facility]) - 06/25/2023 Palpitations - 05/16/2023 Paroxysmal Svt (Supraventricular Tachycardia) ([facility]) - 11/12/2022 Adverse Reaction to Hmg-Coa Reductase Inhibitor - 06/07/2022 Comment: Historical: see allergies Stasis Edema of Both Lower Extremities - 04/27/2018 Morbid Obesity With Bmi of 45.0-49.9, Adult ([facility]) - 04/18/2017 Asthma - 05/06/2014 Vitamin D Deficiency - 08/21/2010 Charcot Foot Due to Diabetes Mellitus ([facility]) Debility - 09/30/2009 Rosacea - 09/06/2007 Insomnia, [...] appointment.. Davon Wolfe APRN-FABIO documented in this encounterTogus [facility] Center10-08-2024 History of Present illness Narrative* Charis Lucas RPh - 04/24/2024 9:30 AM EDT /Primary Care Pharmacy Visit CC (Reason for Consult): (E10.8) 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) (primary encounter diagnosis) Goal(s): A1c <8% Last Collaborating Provider Visit: 02/15/24 with Marcela Mcgee, FABIO Kidd is a 78 year old female [...] Lysine Itching Naprosyn [Naproxen] GI Upset Nausea Iptqfdb-Zsk-Hsj Red* Myalgia Tylenol-Codeine #3 * Vomiting Ventolin [...] 1 capsule by mouth once daily. Insulin Lincoln, Disposable, (BD ULTRA-FINE FADY PEN NEEDLE) 32 [...] Adherence: denies missed doses. Rx coverage: Payor: [facility] MEDICARE / Plan: [facility] MEDIC[facility] PPO / Product Type: PPO [...] 05/23/24 Next PharmD visit: 06/19/24 Charis Lucas, ArmandoD, BCACP Primary Care Clinical Curb And Gutter Laborer documented in this encounterTogus Va Medical Center10-08-2024 NotePromed[facility]10-03-2024 NotePromedica [facility]10-03-2024 History of Present illness Narrative* Federica Alonzo RN - 04/19/2024 1:11 PM EDT CDM ENROLLMENT Provider Action / FYI: Patient identified by name and date of . Discussed care with patient. Program Details Chronic Disease Management Status: Enrolled Effective Dates: 04/04/2024 - present Responsible Staff: Federica Alonzo RN Support and Services: Diabetes, Hypertension Assessments [...] 19, 2024 1:25 PM documented in this encounterTogus Va Medical Center10-02-2024 History of Present illness Narrative* Opal Joseph RT(R) - 04/18/2024 9:40 AM EDT Radiology Service [...] PATIENT PRESENTS WITH AN IMPLANTABLE OR ATTACHED STEAMBLASTER: No RADIOLOGY DEPARTMENT: General X-ray: Exam(s) Completed: Chest X-Ray PERIPHERAL IV DATA: Not applicable SIGNED BY: RT Jose(R) April 18, 2024 9:50 AM documented in this encounterTogus Va Medical Center10-02-2024 NotePromedica Bay Park Hospital10-02-2024 NotePromedica [facility]10-02-2024 History of Present illness Narrative* Smiley Prieto APRN.COMPUTER NUMERICAL CONTROL PROGRAMMER - 04/18/2024 9:30 AM EDT This note was created using eduPadriter. Subjective Attila Kidd is a 78 year old female. 78 year old female with PMH HTN, hyperlipidemia, SVT, asthma, GERD, DM, presents for illness. Acute onset 2 days ago +cough +sneezing +lymph nodes Denies sore throat Denies eye complaints Denies fever or chills Denies body aches or fatigue Denies dyspnea Denies CP Denies tobacco usage The history is provided by the patient. No healthcare interpreter was used. Cough This is a new [...] [Amiloride-Hydrochlorothiazide], Oseltamivir, Doxycycline, Escitalopram, Lysine, Naprosyn [Naproxen], Gmdrruh-Yns-Nqp Reductase Inhibitors, Tylenol-Codeine #3 [Acetaminophen-Codeine], and Ventolin [...] 1 capsule by mouth once daily. Insulin Lincoln, Disposable, (BD ULTRA-FINE FADY PEN NEEDLE) 32 [...] A/B & RSV PCR, ROUTINE Smiley Prieto APRN.COMPUTER NUMERICAL CONTROL PROGRAMMER documented in this encounterTogus Va Medical Center09-24-2024 History of Present illness Narrative* Charis Lucas, [facility] - 04/10/2024 9:00 AM EDT Primary Care Pharmacy Visit CC (Reason for Consult): (E10.8) 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) (primary encounter diagnosis) Goal(s): A1c <8% Last Collaborating Provider Visit: 02/15/24 with Marcela Mcgee, COMPUTER NUMERICAL CONTROL PROGRAMMER Attila Kidd is a 78 year old [...] Lysine Itching Naprosyn [Naproxen] GI Upset Nausea Mntdvkk-Sbj-Grn Red* Myalgia Tylenol-Codeine #3 * Vomiting Ventolin [...] (Patient not taking: Reported on 01/12/2024) Insulin Lincoln, Disposable, (BD ULTRA-FINE FADY PEN NEEDLE) 32 [...] Rx coverage: Payor: T MEDICARE / Plan: [employer] MED[employer] PPO / Product Type: PPO / [...] 05/23/24 Next PharmD visit: 04/24/24 Charis Lucas, ArmandoD, BCACP Primary Care Clinical Curb And Gutter Laborer documented in this encounterTogus Va Medical Center09-24-2024 NotePromedica Bay Park Hospital09-23-2024 NotePromedica [facility] Hospital09-23-2024 History of Present illness Narrative* Renetta Mcgee APRN.COMPUTER NUMERICAL CONTROL PROGRAMMER - 04/09/2024 10:51 AM EDT Patient's request for medication is as follows Requested Prescriptions Signed Prescriptions Disp Refills glucagon (GVOKE HYPOPEN 1-PACK) 1 mg/0.2 mL auto-injector 0.2 mL 3 Sig: Inject 1 mg subcutaneously as needed. Order entered - please phone pharmacy and notify patient. Renetta Mcgee APRN.COMPUTER NUMERICAL CONTROL PROGRAMMER documented in this encounterTogus Va Medical Center09-23-2024 History of Present illness Narrative* Sergo Perez, RD - 04/09/2024 10:00 AM EDT [facility] Medical Nutrition Therapy Visit Type: In-person Patient [...] loss Blood sugar regulation Diet History: Breakfast: [place], eggs, coffee Lunch: salad with turkey deli [...] - Physical Activity options: stationary bike - [employer] 2 CGM ordered however pt not currently [...] (Patient not taking: Reported on 01/12/2024) Insulin Lincoln, Disposable, (BD ULTRA-FINE FADY PEN NEEDLE) 32 [...] lbs, 10% weight loss = 0 lbs [place] body weight: 67.4 kg (148 lb 7.7 [...] by: Sergo Perez RD documented in this encounterTogus Va Medical Center09-23-2024 NotePromedica Bay Park Hospital09-18-2024 NotePromedica Bay [facility] Hospital09-18-2024 History of Present illness Narrative* Federica Alonzo RN - 04/04/2024 10:58 AM EDT CDM ENROLLMENT Provider Action / FYI: Pt given the [employer] phone number. Educated on the [...] were you homeless or living in a senior living (including now)?: No Transportation Needs In the [...] In the past 12 months has the electric, gas, oil, or water company threatened to shut off services in your [...] ADLs, Fall Risk, SDOH Disposition Based on supervisor contact and service clerks, the following disposition is advised: No action needed Federica Alonzo RN April 04, 2024 11:15 AM documented in this encounterTogus Va Medical Center09-13-2024 Instructions* Patient Instructions* Jeannine Perkins MD - 03/30/2024 2:37 PM EDT SERVICE DATE: 03/30/2024 SERVICE TIME: 1:40 PM Oral Exhaled Nitric Oxide measurement: 25.0 (ppb) Oral Exhaled Nitric Oxide measurement (Previous Encounters) Test Date Oral Exhaled Nitric Oxide (ppb) 06/23/2023 16.0 04/30/2021 45.0 (A) 02/23/2019 24.0 04/18/2017 56.0 (A) documented in this encounterTogus Va Medical Center09-13-2024 History of Present illness Narrative* Jeannine Perkins MD - 03/30/2024 2:15 PM EDT Images from the original note were not included. . [facility] [place] Note Patient name: Attila Kidd PCP: Octavio Reza MD CC: Follow-up asthma HPI: Attila Kidd 78 year old female former 21-tbzp-pljp smoker with PMH significant for morbid obesity, HTN, HLD, GERD, DM2, THAIS noncompliant with BiPAP usage, nocturnal oxygen need, asthma, SVT/palpitations. Recently seen by COMPUTER NUMERICAL CONTROL PROGRAMMER for an acute visit for worsening asthma symptoms. Baseline inhaledtherapy with generic Symbicort and as needed albuterol. She had previously been on Advair but complained of significant palpitations. [facility], she continued to have issues with [...] Lysine Itching Naprosyn [Naproxen] GI Upset Nausea Ssiahed-Ivt-Tja Red* Myalgia Tylenol-Codeine #3 * Vomiting Ventolin [...] (Patient not taking: Reported on 01/12/2024) Insulin Lincoln, Disposable, (BD ULTRA-FINE FADY PEN NEEDLE) 32 [...] and supplemental oxygen Jeannine Perkins MD [facility] [place] documented in this encounterTogus Va Medical Center09-13-2024 NotePromedica Bay Park Hospital09-13-2024 NotePromedica Bay Park Hospital09-13-2024 Procedure note* Zora CortesJAI - 03/30/2024 1:40 PM EDTAssociated Order(s): NITRIC [...] DATE: March 30, 2024 TIME: 1:40 PM [facility]09-13-2024 Procedure note* Sebastian JAI Blakely - 03/30/2024 1:40 PM EDTAssociated Order(s): NITRIC [...] (A) 02/23/2019 24.0 04/18/2017 56.0 (A) NAME: Zora JAI Cortes PATIENT NAME: Attila Kidd DATE: March 30, 2024 TIME: 1:40 PM documented in this encounterTogus Va Medical Center09-13-2024 Nurse Note* Elina Sarkar LPN - 03/30/2024 1:39 PM EDT Intake information documented in the prior visit with JAI Matthew today. [facility]09-13-2024 NotePromedica Bay Park Hospital09-13-2024 History of Present illness Narrative* Zora Cortes RPFT - 03/30/2024 1:39 PM EDT PULM FUNCTION: Provider: Jeannine Perkins MD Assisting Tech: Zora Cortes RPFT Exhaled Nitric Oxide: 1 documented in this encounterTogus Va Medical Center09-13-2024 Nurse Note* Elina Sarkar LPN - 03/30/2024 1:39 PM EDT Intake information documented in the prior visit with JAI Matthew today. documented in this encounterTogus Va Medical Center09-06-2024 Telephone encounter Note * Telephone Encounter - [...] Mena RN March 23, 2024 3:08 PM [facility]09-06-2024 Miscellaneous Notes* Telephone Encounter - Darlene Mena [...] 23, 2024 3:08 PM documented in this encounterTogus Va Medical Center09-05-2024 Telephone encounter Note * Telephone Encounter - Sergo Perez RD - 03/22/2024 8:48 AM EDT Pt states has not set up [employer] to be able to conduct virtual video visit today. [facility] is not interested in getting set up as notes difficulty navigating computer. Pt interested rescheduling appointment for in-person. Appointment to be rescheduled for April 09 at 10 am. [facility] Work Phone: 1(317) 566-355409-05-2024 Miscellaneous Notes* Telephone Encounter - Sergo Perez RD - 03/22/2024 8:48 AM EDT Pt states has not set up [employer] to be able to conduct virtual video visit today. States is not interested in getting set up as notes difficulty navigating computer. Pt interested rescheduling appointment for in-person. Appointment to be rescheduled for April 09 at 10 am. documented in this encounterTogus Va Medical Center08-29-2024 Telephone encounter Note * Telephone Encounter - Elina Sarkar LPN - 03/15/2024 9:50 AM EDT Called [facility]. Symbicort VITALY authorized per Quang Morin. Approval code [id number]. Approval through 07/17/24. Attempted to contact Elijah but call was disconnected. Detailed message left on patient's phone re: same. Elina Sarkar LPN [facility]08-29-2024 Miscellaneous Notes* Telephone Encounter - Elina Sarkar LPN - 03/15/2024 9:50 AM EDT Called [facility]. Symbicort VITALY authorized per Quang Morin. Approval code [id number]. Approval through 07/17/24. Attempted to contact Elijah [...] last week on 03/07. documented in this encounterTogus Va Medical Center08-29-2024 Telephone encounter Note * Telephone Encounter - Kenisha Maldonado MA - 03/15/2024 8:30 AM EDT , [facility] calling and states his was given 2 generic inhalers and did not work. Symbicortis the only inhaler that works for her. asking if her Symbicort has been authorized? She was seen last week on 03/07. [facility]08-28-2024 NotePromedica Bay Park Hospital08-28-2024 History of Present illness Narrative* Lydia Manuel RN - 03/14/2024 8:28 AM EDT CC [facility] MATT NURSE - CHART REVIEW Provider MIGUE NG Action 02/13/2023 presented to non [facility] ED with complaint of chest pain and shortness of breath with exertion. Pt identified by name and . Reason for Review: Payor request Patient Attributed To: QAE Payer: [email or web address] Chart Review For: Utilization: ED Total Patient High CostTotal Patient High Cost {HIGH COST:347003) Quality measure review Payor request for assistance Action Taken: Data submitted to payor Lydia Manuel RN March 14, 2024 8:28 AM documented in this encounterTogus Va Medical Center08-26-2024 Note* Addendum Note - Renetta Mcgee APRN.CNP - 03/12/2024 10:13 AM EDTAddended by: RENETTA MCGEE on: 03/12/2024 10:13 AM Modules accepted: Orders [facility]08-26-2024 Telephone encounter Note* Telephone Encounter - Renetta Mcgee APRN.CNP - 03/12/2024 10:13 AM EDT Patient's request for medication is as follows Requested Prescriptions Signed Prescriptions Disp Refills insulin glargine (LANTUS SOLOSTAR U-100 INSULIN) 100 unit/mL (3 mL) 27 mL 3 Sig: Inject 27 units once daily Authorizing Provider: RENETTA MCGEE Order entered - please phone pharmacy and notify patient. Renetta Mcgee APRN.CNP [facility]08-26-2024 Miscellaneous Notes* Addendum Note - Renetta Mcgee [...] Pt is going to called Trevin Mcgee NP documented in this encounterTogus Va Medical Center08-26-2024 Telephone encounter Note * Telephone Encounter - [...] Lacy RN March 12, 2024 9:02 AM [facility]08-26-2024 Miscellaneous Notes* Telephone Encounter - Radha Lacy [...] 12, 2024 9:02 AM documented in this encounterTogus Va Medical Center08-26-2024 Telephone encounter Note * Telephone Encounter - Parris Eckert RN - 03/12/2024 8:51 AM EDT Pt called in about her insulin glargine, she states Fidel said it wasn't sent in correctly. I lether know it was sent by her endocrinologists office and she would need to call them if they were handling the medication. Pt is going to called Diannne Cioce [employer]08-21-2024 History of Present illness Narrative* Ivy, Ariane Shoemaker APRN.COMPUTER NUMERICAL CONTROL PROGRAMMER - 03/07/2024 11:00 AM EDT Images from [...] palpitations while on Advair and presented to [facility] ED on 03/02. Advair was stopped and [...] Lysine Itching Naprosyn [Naproxen] GI Upset Comment:Nausea Azpfybu-Vrs-Awm Red* Myalgia Tylenol-Codeine #3 * Vomiting Ventolin [...] Lantus, not Basaglar per patient preference Insulin Lincoln (Disposable) 32 gauge x 5/32 Commonly known [...] Signed: Merrick Capone DO at 20:53 EDT Reading Location ID and State: [facility] / [place] Tel [phone], Service support , Review of Systems Constitutional: Negative for [...] exam - review of CT report from [facility] ED 03/02 without sign of pulmonary edema/acute illness - resume Symbicort and monitor symptoms F/u scheduled with Dr. Perkins 03/30 Portions of this documentation were copied and pasted from previous office visit notes in order to provide a cohesive continuity of the history. The note has been reviewed and edited and updated as necessary. Ariane Tesfaye APRN.FABIO I spent a total of 39 minutes on the date of the service which included preparing to see the patient, sudw-wp-prfk patient care, completing clinical documentation, obtaining and/or reviewing separately obtained history, performing a medically appropriate examination, and counseling and educating the patient/family/caregiver. documented in this encounterTogus Va Medical Center08-21-2024 NotePromedica Bay Park Hospital08-21-2024 Telephone encounter Note* Telephone Encounter - Elina Sarkar LPN - 03/07/2024 9:04 AM EDT Appt scheduled. Elina Sarkar LPN [facility]08-21-2024 Miscellaneous Notes* Telephone Encounter - Elina Sarkar [...] today. Patient can be contacted back at [phone]. * Telephone Encounter - Trudy Wang MA [...] Octavio Reza MD routed this conversation to [facility] Octavio Leiva MD 03/06/24 8:29 PM Note Stop the Breyna inhaler as well. Reviewed that had diagnosis of mild persistent asthma Since has had problems with several inhalers tried, can see how her breathing does without med to replace Symbicort. Follow up with environmental construction engineer if has recurrence of cough or wheezing. [...] with her heart. Pt was seen at [facility] ED on 03/02/24 & states she was [...] advise. Bettina Murray LPN documented in this encounterTogus Va Medical Center08-21-2024 Telephone encounter Note * Telephone Encounter - [...] today. Patient can be contacted back at [phone]. [facility] Telephone encounter Note* Telephone Encounter - Trudy [...] Octavio Reza MD routed this conversation to [facility]asm[facility] Octavio Johnson MD 03/06/24 8:29 PM Note Stop the Breyna inhaler as well. Reviewed that had diagnosis of mild persistent asthma Since has had problems with several inhalers tried, can see how her breathing does without med to replace Symbicort. Follow up with environmental construction engineer if has recurrence of cough or wheezing. [...] with her heart. Pt was seen at [facility] ED on 03/02/24 & states she was [...] ED again. Please advise. Bettina Murray LPN [facility]08-21-2024 Telephone encounter Note* Telephone Encounter - Parris [...] to f/u on symptoms. Parris Eckert RN [facility]08-21-2024 Miscellaneous Notes* Telephone Encounter - Parris Eckert [...] Eckert RN * Telephone Encounter - Octavio Reaz MD - 03/06/2024 8:23 PM EDT Stop the Breyna inhaler as well. Reviewed that had diagnosis of mild persistent asthma Since has had problems with several inhalers tried, can see how her breathing does without med to replace Symbicort. Follow up with environmental construction engineer if has recurrence of cough or wheezing. * Telephone Encounter - Bettina Murray LPN - 03/06/2024 4:52 PM EDT Pt reports she has been using generic advair, was sent to pharm 02/20/24. Pt states she started feeling she was having an erratic heart beat & she had felt ' a let down feeling' with her heart. Pt was seen at [facility] ED on 03/02/24 & states she was [...] advise. Bettina Murray LPN documented in this encounterT[facility]08-[facility] Telephone encounter Note * Telephone Encounter - Octavio Reza MD - 03/06/2024 8:23 PM EDT Stop the Breyna inhaler as well. Reviewed that had diagnosis of mild persistent asthma Since has had problems with several inhalers tried, can see how her breathing does without med to replace Symbicort. Follow up with environmental construction engineer if has recurrence of cough or wheezing. [facility]08-20-2024 Telephone encounter Note* Telephone Encounter - Bettina Murray LPN - 03/06/2024 4:52 PM EDT Pt reports she has been using generic advair, was sent to pharm 02/20/24. Pt states she started feeling she was having an erratic heart beat & she had felt ' a let down feeling' with her heart. Pt was seen at [facility] ED on 03/02/24 & states she was [...] ED again. Please advise. Bettina Murray LPN [facility]08-19-2024 Telephone encounter Note* Telephone Encounter - Destinee Sims LPN - 03/05/2024 7:33 PM EDT Patient notified, order faxed to [facility] Scheduling. Destinee Sims LPN [facility]08-19-2024 Miscellaneous Notes* Telephone Encounter - Destinee Sims LPN - 03/05/2024 7:33 PM EDT Patient notified, order faxed to [facility] Scheduling. Destinee Sims LPN * Telephone Encounter - Lydia Grande APRN.CNS - 03/05/2024 4:30 PM EDT [place] * Telephone Encounter - Cesar Brush LPN - 03/05/2024 8:36 AM EDT Patient calling she has gotten her reminder letter form [facility] that it is time to get mamm order. Patient needs done after 03/22/2024. Pending order and fax to [facility] at [phone] when completed, notify patient. Please advise documented in this encounterTogus [facility]08-19-2024 Telephone encounter Note * Telephone Encounter - Lydia Grande APRN.CNS - 03/05/2024 4:30 PM EDT [place] [facility]08-19-2024 Telephone encounter Note* Telephone Encounter - Cesar Brush LPN - 03/05/2024 8:36 AM EDT Patient calling she has gotten her reminder letter form [facility] that it is time to get mamm order. Patient needs done after 03/22/2024. Pending order and fax to [facility] at [phone] when completed, notify patient. Please advise [facility]08-13-2024 History of Present illness Narrative* Charis Lucas [facility] - 02/28/2024 9:00 AM EDT Primary Care [...] 2 hr PP Bedtime 02/27 163/5 130 / 161/5 156 145/4 162 168/7 178 02/25 114/4 150/4 187 197/7 198 8/10 138/4 139 220/6 198 235/8 140 8/9 [...] Lysine Itching Naprosyn [Naproxen] GI Upset Nausea Qluvdzj-Tqz-Ccc Red* Myalgia Tylenol-Codeine #3 * Vomiting Ventolin [...] (Patient not taking: Reported on 01/12/2024) Insulin Lincoln, Disposable, (BD ULTRA-FINE FADY PEN NEEDLE) 32 [...] Adherence: denies missed doses. Rx coverage: Payor: [facility] MED[facility] / Plan: [employer] MEDICARE PPO / [...] 05/23/24 Next PharmD visit: 04/10/24 Charis Lucas, Willie, BCACP Primary Care Clinical Curb And Gutter Laborer documented in this encounterTogus [facility] Center08-13-2024 NoteProm[facility] Telephone encounter Note* Telephone Encounter - Pattie Giles RN - 02/21/2024 8:32 AM EDT Call placed to patient and notified of below. Patient verbalizes understanding. Pattie Giles RN [facility]08-06-2024 Miscellaneous Notes* Telephone Encounter - Pattie Giles [...] in. Pattie Giles RN documented in this encounterTogus [facility] Center08-05-2024 Telephone encounter Note * Telephone Encounter - [...] or switch to another inhaler, like Breo. [facility]08-05-2024 Telephone encounter Note* Telephone Encounter - Pattie Giles RN - 02/20/2024 8:11 AM EDT Patient calls to report that her insurance isn't going to cover the name brand Symbicort and she will need an alternative inhaler prescription sent in. Pattie Giles RN [facility]07-31-2024 History of Present illness Narrative* Renetta Mcgee, JOSEFINA.COMPUTER NUMERICAL CONTROL PROGRAMMER - 02/15/2024 2:45 PM EDT OFFICE VISIT [...] not displayed. Recent Labs 05/04/21 0729 09/02/21 0700 12/24/21 0718 09/14/22 0724 05/16/23 0725 09/01/23 1247 12/07/23 1133 TG 84 -- 87 76 -- [...] (Patient not taking: Reported on 01/12/2024) Insulin Lincoln, Disposable, (BD ULTRA-FINE FADY PEN NEEDLE) 32 [...] Lysine Itching Naprosyn [Naproxen] GI Upset Nausea Rowzbxt-Frg-Ukq Red* Myalgia Tylenol-Codeine #3 * Vomiting Ventolin [...] current insulin dosing STRONGLY RECOMMEND SEEING ENDO RESIDENT DIRECTOR and starting to learn insulin to carb ratio, and advanced carb counting. Patient/ much more relaxed today and are starting to feel that they are able to be in control of the patient's blood sugars regardless of her diet, although patient is still being very carefulwith her choices. CONSULT TO ENDO RESIDENT DIRECTOR. Plan: COMPREHENSIVE METABOLIC PANEL, LIPID PANEL, NONFASTING, ALBUMIN/CREATININE RATIO, URINE, HEMOGLOBIN A1C, ENDOCRINOLOGY DIETITIAN VISIT (MNT) Renetta Mcgee CNP documented in this encounterTogus [facility] Medical Center07-31-2024 NotePromed[facility]07-29-2024 NotePromedica [facility]07-29-2024 History of Present illness Narrative* Octavio Reza [...] able to tolerate BiPAP. Was evaluated at [facility]. Gatorade 1 small bottle and 5 to [...] then wash off in the morning Insulin Lincoln, Disposable, (BD ULTRA-FINE FADY PEN NEEDLE) 32 [...] content normal. Judgment: Judgment normal. Latest Ref Rn 09/01/2023 09/02/2023 12/07/2023 01/27/2024 WBC 3.70 - [...] - 4.00 k/uL 0.48 (L) 0.81 (L) Cannon% % 6.3 7.6 Abs Cannon <0.87 k/uL 0.46 0.40 Eosin% % 3.6 [...] 1. Type I diabetes mellitus with manifestations ([facility]) E10.8 Still with good control with no [...] in adult, unspecified whether serious comorbidity present ([facility]) E66.01 Z68.42 Doingw ell with gradual weight [...] which included preparing to see the patient, gllk-aa-vbie patient care, completing clinical documentation, obtaining and/or reviewing separately obtained history, performing a medically appropriate examination, counseling and educating the pat ient/family/caregiver, ordering medications, tests, or procedures, independently interpreting results (not separately reported), and communicating results to the patient/family/caregiver. Octavio Reza MD documented in this encounterTogus [facility]07-11-2024 Telephone encounter Note * Telephone Encounter - Ritika Santos LPN - 01/26/2024 3:01 PM EDT Patient notified of providers message and verbalized understanding [facility]07-11-2024 Miscellaneous Notes* Telephone Encounter - Ritika Santos LPN - 01/26/2024 3:01 PM EDT Patient notified of providers message and verbalized understanding * Telephone Encounter - Lydia Grande APRN.CNS [...] and not 02/06. Call patient with update [phone]. Thank you. * Telephone Encounter - Bettina Murray LPN - 01/25/2024 8:13 AM EDT Pt has an appt 02/13/24 & is asking that lab orders be placed if she is due for any. Please notify pt. Please notify pt that her appt is 02/12 not 02/06 as she told me on the phone Bettina Murray LPN documented in this encounterTogus [facility]07-11-2024 Telephone encounter Note * Telephone Encounter - Lydia Grande APRN.VP CUSTOMER SERVICE - 01/26/2024 2:42 PM EDT Labs ordered [facility]07-10-2024 Telephone encounter Note* Telephone Encounter - Darlene Mena RN - 01/25/2024 4:42 PM EDT Patient calls back confused because her appointment on after visit summary was listed as 02/06. Patient advised that it was 02/06 at one time but provider was not in office and it was switched to 02/12. Patient voiced understanding. Patient put right date on her calendar. Darlene Mena RN [facility]07-10-2024 Telephone encounter Note* Telephone Encounter - Asmita Tapia RN - 01/25/2024 4:29 PM EDT Patient calling to check on status of request below. Please place lab orders for upcoming appt, when able. Pt reminded that her appointment is on 02/13/24 and not 02/06. Call patient with update [phone]. Thank you. [facility]07-10-2024 Telephone encounter Note* Telephone Encounter - Bettina Murray LPN - 01/25/2024 8:13 AM EDT Pt has an appt 02/13/24 & is asking that lab orders be placed if she is due for any. Please notify pt. Please notify pt that her appt is 02/12 not 02/06 as she told me on the phone Bettina Murray LPN [facility]07-03-2024 NotePromed[facility]07-03-2024 History of Present illness Narrative* Tawanda Wolff RN - 01/18/2024 9:37 AM EDT DIABETES CARE AND EDUCATION VISIT Location: [place] Type of visit: In person individual PATIENT'S [...] 2024 TIME: 9:37 AM documented in this encounterTogus [facility] Center06-27-2024 History of Present illness Narrative* Charis Lucas, [facility] - 01/12/2024 9:00 AM EDT Primary Care [...] 209/7u 190 01/10 171/5u 184/5u 175/7u 163 12/24 128 AVG 159 157 228 189 175 [...] Lysine Itching Naprosyn [Naproxen] GI Upset Nausea Vffxedo-Rwh-Bqc Red* Myalgia Tylenol-Codeine #3 * Vomiting Ventolin [...] 1 capsule by mouth once daily. Insulin Lincoln, Disposable, (BD ULTRA-FINE FADY PEN NEEDLE) 32 [...] Rx coverage: Payor: T MEDICARE / Plan: [facility] MEDIC[facility] PPO / Product Type: PPO [...] Charis Lucas, PharmD, BCACP Primary Care Clinical Curb And Gutter Laborer documented in this encounterTogus [facility] Center06-17-2024 History of Present illness Narrative* [...] 1 capsule by mouth once daily. Insulin Lincoln, Disposable, (BD ULTRA-FINE FADY PEN NEEDLE) 32 [...] Lysine Itching Naprosyn [Naproxen] GI Upset Nausea Mansngn-Ptb-Noj Red* Myalgia Tylenol-Codeine #3 * Vomiting Ventolin [...] has had this lesion removed by her chemistry tutor a few years ago. She will follow-up with Dr. Blanton for dermatologic reevaluation of potentially precancerous lesion. Tamika Morris MD documented in this encounterTogus Va [facility] Center06-11-2024 Telephone encounter Note * Telephone Encounter - O'Vancouver, Norma, RN - 12/27/2023 9:48 AM EDT L/M for Pt to return call to office re: below notation per CNP. Norma Underwood RN December 27, 2023 9:48 AM [facility]06-11-2024 Miscellaneous Notes* Telephone Encounter - Norma Devlin RN - 12/27/2023 9:48 AM EDT L/M for Pt to return call to office re: below notation per CNP. Norma Udnerwood RN December 27, 2023 9:48 AM * [...] 116, 4:30 pm: 216 BS on Sun: 12-25-23: fastin, 10:45 am: 75, 11:05: 117, 4:45 [...] hears back from you. documented in this encounterTogus Va [facility] Center06-10-2024 Telephone encounter Note * Telephone Encounter - [...] hear that her sugars are leveling out. [facility]06-10-2024 Telephone encounter Note* Telephone Encounter - Sahara [...] 116, 4:30 pm: 216 BS on Sun: 12-25-23: fastin, 10:45 am: 75, 11:05: 117, 4:45 pm: 180, 8:50 pm: 109, 9:45 pm: 181. BS this morning: fasting 175, states she could have avoided that number, but last evening BS was 81, and she ate a yoplait yogart, plus another 1/2 of yoplait. Please phone patient with reply. States she will keep following Zakia Mcgee's instructions until she hears back from you. [facility]05-24-2024 Telephone encounter Note* Telephone Encounter - Tierney Deluca MA - 12/09/2023 4:33 PM EDT Patient phoned and relayed message below as per provider. She reports understanding and has no further questions. Tierney Deluca MA [facility]05-24-2024 Miscellaneous Notes* Telephone Encounter - Tierney Deluca [...] for her to sit with the ENDO RESIDENT DIRECTOR (she will be starting her clinic in [...] like called on her husbands phone at [phone]. documented in this encounterTogus Va [facility] Center05-24-2024 Telephone encounter Note * Telephone Encounter - Renetta Mcgee APRN.CNP - 12/09/2023 4:14 PM EDT Please let the patient know she can have a snack and depending on what it is, can take 2-3 units offast acting insulin. I would ideally like for her to sit with the ENDO RESIDENT DIRECTOR (she will be starting her clinic in December) She really needs to understand the carb counting and how insulin to carb ratio works for coverage, this knowledge will put an end to her frustration with her sugars and keep her well controlled no matter what she decides to eat! Her JAYSON confirms TYPE I status for her. [facility]05-24-2024 Telephone encounter Note* Telephone Encounter - Trudy [...] like called on her husbands phone at [phone]. [facility]05-24-2024 Telephone encounter Note* Telephone Encounter - Madeline Quintana LPN - 12/09/2023 1:47 PM EDT Patient did go to the [facility] ER on 12/07/23. Copies of ED visit copied for provider. ED discharge note instructs patient to follow up with PCP only as needed. Madeline Quintana LPN [facility]05-24-2024 Miscellaneous Notes* Telephone Encounter - Madeline Quintana LPN - 12/09/2023 1:47 PM EDT Patient did go to the [facility] ER on 12/07/23. Copies of ED visit [...] for evaluation. Please advise. documented in this encounterTogus [facility] Center05-22-2024 Telephone encounter Note * Telephone Encounter - [...] to the ER for evaluation. Please advise. [facility]05-22-2024 Instructions* Patient Instructions* Renetta Mcgee APRN.COMPUTER NUMERICAL CONTROL PROGRAMMER - 12/07/2023 10:37 AM EDT LANTUS Inject [...] glucose does not improve. documented in this encounterTogus Va Medical Center05-22-2024 History of Present illness Narrative* Renetta Mcege APRN.CNP - 12/07/2023 10:15 AM EDT NEW [...] obtained from home care nurse 'years ago' SHEEBA 27 units once daily SMBG Type of [...] by mouth one time a week. Insulin Lincoln, Disposable, (BD ULTRA-FINE FADY PEN NEEDLE) 32 [...] A1C Renetta Mcgee CNP documented in this encounterTogus Va Medical Center05-20-2024 Telephone encounter Note * Telephone Encounter - Patricia Mora LPN - 12/05/2023 12:12 PM EDT PATIENT NOTIFIED OF SAME. [facility]05-20-2024 Miscellaneous Notes* Telephone Encounter - Patricia Mora [...] advise, Pattie Giles RN documented in this encounterTogus Va Medical Center05-20-2024 Telephone encounter Note * Telephone Encounter - Patricia Mora LPN - 12/05/2023 12:08 PM EDT PATIENT NOTIFIED OF SAME. [facility]05-20-2024 Miscellaneous Notes* Telephone Encounter - Patricia Mora [...] advise. Rakel Agosto LPN documented in this encounterTogus Va Medical Center05-20-2024 Telephone encounter Note * Telephone Encounter - Davon Wolfe APRN.FABIO - 12/05/2023 12:01 PM EDT It would be alright to get her hair done if getting it done does not cause her to have symptoms such as dizziness, lightheadedness, vision changes, etc. [facility]05-20-2024 Telephone encounter Note* Telephone Encounter - Rakel [...] Please review and advise. Rakel Agosto LPN [facility]05-17-2024 Telephone encounter Note* Telephone Encounter - Octavio [...] to add prior to appointment with endocrinology. [facility]05-17-2024 Telephone encounter Note* Telephone Encounter - Pattie [...] Please review and advise, Pattie Giles RN [facility]05-06-2024 Telephone encounter Note* Telephone Encounter - Patricia Mora LPN - 11/21/2023 2:47 PM EDT PATIENT NOTIFIED OF SAME. [facility]05-06-2024 Miscellaneous Notes* Telephone Encounter - Patricia Mora [...] her it could be from a different logistics center manager, she said the pharmacy told her the [...] She has eye appt at 920 am [facility], will not be able to reached. She has been taking Lantus 24 units at bedtime. Patient is asking what should she be taking in place of the Novolog? She said she is so nervous about this, has got diarrhea worrying about it. Please advise documented in this encounterTogus Va Medical Center05-06-2024 Telephone encounter Note * Telephone Encounter - [...] drop her sugars like the novolog does. [facility]05-06-2024 Telephone encounter Note* Telephone Encounter - Patricia [...] continue with weekly dose of daily dose? [facility]05-06-2024 Telephone encounter Note* Telephone Encounter - Davon Wolfe APRN.CNP - 11/21/2023 1:07 PM EDT Please see if she would be willing to stop the NPH insulin and use the sliding scale as ordered forthe novolog. We could also further adjust the lantus. I think she would tolerate doing 26 units of the Lantus if she is going without the NPH insulin. [facility]05-06-2024 Telephone encounter Note* Telephone Encounter - Parris [...] her it could be from a different logistics center manager, she said the pharmacy told her the [...] Please call and advise. Parris Eckert RN [facility]05-06-2024 Telephone encounter Note* Telephone Encounter - Davon Wolfe APRN.CNP - 11/21/2023 10:26 AM EDT Please see how often she is taking the Novolog and how many units when using it? We could stop the novolog and adjust the other insulins if she is not using much of it. [facility]05-06-2024 Telephone encounter Note* Telephone Encounter - Cesar [...] She has eye appt at 920 am [facility], will not be able to reached. She has been taking Lantus 24 units at bedtime. Patient is asking what should she be taking in place of the Novolog? She said she is so nervous about this, has got diarrhea worrying about it. Please advise [facility]04-26-2024 Telephone encounter Note* Telephone Encounter - Patricia Mora LPN - 11/11/2023 2:24 PM EDT PATIENT NOTIFIED OF SAME and expressed understanding. [facility]04-26-2024 Miscellaneous Notes* Telephone Encounter - Patricia Mora [...] needs to change anything. documented in this encounterTogus Va Medical Center04-26-2024 Telephone encounter Note * Telephone Encounter - Davon Wolfe APRN.CNP - 11/11/2023 1:17 PM EDT Okay, understood, she could increase the Lantus then to 26 units but reduce the lispro to 2 units and see if helpful with the symptoms. Please have her call next week with an update after a few days of doing that. [facility]04-26-2024 Telephone encounter Note* Telephone Encounter - Patricia [...] about 30 minutes. Then feels dizzy, weak. [facility]04-26-2024 Telephone encounter Note* Telephone Encounter - Davon Wolfe APRN.CNP - 11/11/2023 10:38 AM EDT Please return her call and let her know that based on the am sugars we could adjust the Lantus to 22 units as this will help with the am readings to get them closer to 120. [facility]04-26-2024 Telephone encounter Note* Telephone Encounter - Gloria [...] patient if she needs to change anything. [facility]04-26-2024 Telephone encounter Note* Telephone Encounter - Davon Wolfe APRN.CNP - 11/11/2023 8:18 AM EDT Seen 11/08 [facility]04-26-2024 Miscellaneous Notes* Telephone Encounter - Davon Wolfe APRN.CNP - 11/11/2023 8:18 AM EDT Seen 11/08 * Telephone Encounter - Madeline Quintana LPN - 11/04/2023 4:23 PM EDT Images from the original note were not included. Patient dropped off documented in this encounterTogus Va Medical Center04-25-2024 Telephone encounter Note * Telephone Encounter - Lydia Grande APRN.CNS - 11/10/2023 7:13 AM EDT Noted [facility]04-25-2024 Miscellaneous Notes* Telephone Encounter - Lydia Grande [...] Telephone Encounter - Lydia Grande APRN.CNS - 11/07/2023 3:33 PM EDT What she [...] asking for PCP recommendation. Rochelle Hoyt RN documented in this encounterTogus Va Medical Center04-24-2024 Instructions* Patient Instructions* Davon Wolfe APRN.CNP - 11/09/2023 3:28 PM EDT The pen is the long acting insulin, this impacts the morning fasting sugar the most. The Novolog is the very quick, short acting insulin. You need to eat with in 30 minuets of that one. documented in this encounterTogus Va Medical Center04-24-2024 History of Present illness Narrative* Davon Wolfe [...] She has been in the ER at [facility] a few times in the last few [...] (Patient not taking: Reported on 11/09/2023) Insulin Lincoln, Disposable, (BD ULTRA-FINE FADY PEN NEEDLE) 32 [...] Major Depressive Disorder, Recurrent, in Full Remission ([facility]) - 06/25/2023 Palpitations - 05/16/2023 Chronic Obstructive Asthma With Exacerbation ([facility]) ([facility]) - 11/12/2022 Acute Respiratory Failure With Hypoxia ([facility]) - 11/12/2022 Paroxysmal Svt (Supraventricular Tachycardia) ([facility]) - 11/12/2022 Adverse Reaction to Hmg-Coa Reductase Inhibitor - 06/07/2022 Comment: Historical: see allergies Stasis Edema of Both Lower Extremities - 04/27/2018 Morbid Obesity With Bmi of 45.0-49.9, Adult ([facility]) - 04/18/2017 Asthma - 05/06/2014 Vitamin D Deficiency - 08/21/2010 Charcot Foot Due to Diabetes Mellitus ([facility]) Debility - 09/30/2009 Rosacea - 09/06/2007 Insomnia, Unspecified - 06/01/2007 Type I Diabetes Mellitus With Manifestations ([facility]) - 09/15/2005 Essential Hypertension - 09/15/2005 Arthropathy [...] appointment.. Davon Wolfe APRN-FABIO documented in this encounterTogus [facility] Center04-24-2024 Telephone encounter Note * Telephone Encounter - [...] Wolfe per patient's request. Rochelle Hoyt RN [facility]04-24-2024 Miscellaneous Notes* Telephone Encounter - Rochelle Hoyt [...] request. Rochelle Hoyt RN documented in this encounterTogus Va Medical Center04-23-2024 Telephone encounter Note * Telephone Encounter - [...] with updated readings in next 2-3 days.. [facility]04-23-2024 Telephone encounter Note* Telephone Encounter - Lydia Grande APRN.CNS - 11/08/2023 4:12 PM EDT See scanned document, no changes made to medications at home. She was advised to follow her sliding scale insulin orders and make an appointment with endocrinology. Did she want to make an appointment with endocrinology and if so does she need a referral? How her blood sugars today? [facility]04-23-2024 Telephone encounter Note* Telephone Encounter - Rakel Agosto LPN - 11/08/2023 11:43 AM EDT Pt calls to report she ended up going to ER yesterday and got sugar under control. Rakel Agosto LPN [facility]04-23-2024 Telephone encounter Note* Telephone Encounter - Madeline Quintana LPN - 11/08/2023 8:56 AM EDT Records printed for provider to review. Madeline Quintana LPN [facility]04-22-2024 Telephone encounter Note* Telephone Encounter - Anika Garber LPN - 11/07/2023 3:44 PM EDT left message for patient to call office back and speak with triage nurse. Anika Garber LPN [facility] Work Phone: [phone] Telephone encounter Note* Telephone Encounter - Lydia Grande APRN.CNS - 11/07/2023 3:33 PM EDT What she [...] diabetes. Recommend avoid excess intake of carbohydrates. [facility]04-22-2024 Telephone encounter Note* Telephone Encounter - Rochelle [...] asking for PCP recommendation. Rochelle Hoyt RN [facility]04-19-2024 Telephone encounter Note* Telephone Encounter - Madeline Quintana LPN - 11/04/2023 4:23 PM EDT Images from the original note were not included. Patient dropped off [facility]04-15-2024 NoteHNO ID: [id number] Author: HEATHER DE ANDA RT(R) Service: ? [...] PATIENT PRESENTS WITH AN IMPLANTABLE OR ATTACHED STEAMBLASTER: No RADIOLOGY DEPARTMENT: Ultrasound PERIPHERAL IV DATA: Not applicable SIGNED BY: Heather De Anda RDMS, RVT October 31, 2023 12:57 [facility]04-15-2024 Miscellaneous Notes* Telephone Encounter - Gabi Santiago LPN - 10/31/2023 2:25 PM EDT Patient notified.Gabi Santiago LPN * Telephone Encounter - Tamika Morris MD - 10/31/2023 1:57 PM EDT Ultrasound showed no blood clot in her leg. She may resume wearing her compression hose and leg brace. Follow up if swelling or pain worsens documented in this encounterTog[facility]04-15-2024 History of Present illness Narrative* Heather De [...] PATIENT PRESENTS WITH AN IMPLANTABLE OR ATTACHED STEAMBLASTER: No RADIOLOGY DEPARTMENT: Ultrasound PERIPHERAL IV DATA: Not applicable SIGNED BY: Heather De Anda RDMS, RVT October 31, 2023 12:57 PM documented in this encounterTogus [facility] Center04-15-2024 History of Present illness Narrative* Tamika Morris [...] by mouth one time a week. Insulin Lincoln, Disposable, (BD ULTRA-FINE FADY PEN NEEDLE) 32 [...] and CBC in August (more recently at [facility] ED). Tamika Morris MD documented in this encounterTogus [facility] Center04-12-2024 Discharge summary Author Tierney Francis [facility] October 28, 2023 9:20pm Note Date/Time October 28, 2023 7:1 6pm [facility] Medical Records Department [address] [place] [address] Emergency Department Summary 10/28/23 MR#: [id number] Acct: [id number] Name: ATTILA KIDD Rep #:[id number] : 1945 78 From: Tierney Francis MD [...] palpitations when her blood sugars are high. [facility] Medical History Abnormal EKG Asthma Bimalleolar ankle [...] amiodarone Allergy Intermediate Swelling Verified 10/28/23 18:51 Guernsey And Derivatives Allergy Intermediate Hives Verified 10/28/23 [...] 18:51 [From Airborne (ascorbate sodium)] hydrocodone [From Moose] Allergy Mild dystonia Verified 10/28/23 18:51 lysine [...] 18:51 hydrochlorothiazide Allergy Other Verified 10/28/23 18:51 Uskxsut-FPB-PuK Reductase AdvReac Severe myalgias Verified 10/28/23 18:51 Inhibitor [Zlkqtea-Eos-Hrz Reductase Inhibitor] amoxicillin [From Augmentin] AdvReac Other [...] Medical decision making narrative: Patient placed on boat joiner helper. EKG obtained to evaluate for cardiac arrhythmia/ischemia. [...] 73.4 H Lymph % (Auto) 14.4 L Cannon % (Auto) 6.2 Eos % (Auto) 5.4 [...] your Primary Care Provider. Call [facility] ([phone]) or report to the closest Emergency Room. Call 911 if necessary. 10/28/232119 <Electronically signed by Tierney Francis MD> Cosigner Signature (if applicable): CC: Dr. Octavio Reza MD ~ Signed [facility] Work Phone: 1(263) 990-369304-08-2024 Miscellaneous Notes* Telephone Encounter - Parris Eckert [...] for PCP to review. documented in this encounterTogus [facility] Center04-01-2024 Miscellaneous Notes* Telephone Encounter - Octavio Reza [...] mg/dL 5 units novolog 1945 146 mg/dL 2030 139 mg/dL 2055 164 mg/dL 24 units lantus 10/16 0520a [...] advise patient and phone patient with reply: [phone]. documented in this encounterTogus Va Medical Center03-18-2024 Miscellaneous Notes* Telephone Encounter - Parris Eckert RN - 10/03/2023 1:16 PM EDT Pts called and is notified of providers message and instructions. He voices understanding. Parris Eckert, RN * Telephone Encounter - Davon Wolfe APRN.CNP - 10/03/2023 12:54 PM EDT Please let them know that yes, this is a safe option for patient to use to help with her cough. * Telephone Encounter - Rakel Agosto LPN - 10/03/2023 8:37 AM EDT Pt's calls to report he took pt to [facility] ER 09/30 for URI sx. reports pt tested neg [...] pt. Rakel Agosto LPN documented in this encounterTogus Va Medical Center03-16-2024 Discharge summary Author Mark Castillo [facility] October 01, 2023 4:29pm Note Date/Time October 01, 2023 2:5 2pm [facility] Medical Records Department [address] [place] [address] Emergency Department Summary 10/01/23 MR#: [id number] Acct: [id number] Name: ATTILA KIDD Herbert Rep #:[id number] : 1945 78 From: Mark Castillo MD [...] 2 L O2 at night. [facility] <ALEN Diamond - Last Filed: 10/01/23 16:26> [facility] Medical History Abnormal EKG Asthma Bimalleolar ankle [...] amiodarone Allergy Intermediate Swelling Verified 10/01/23 14:33 Guernsey And Derivatives Allergy Intermediate Hives Verified 10/01/23 14:33 morphine Allergy Intermediate confusion Verified 10/01/23 14:33 moxifloxacin Allergy Intermediate Shortness Verified 10/01/23 14:33 of breath nabumetone Allergy Intermediate damaged Verified 10/01/23 14:33 kidney penicillin G Allergy Intermediate TURNS BLUE Verified 10/01/23 14:33 propoxyphene Allergy Intermediate PT UNSURE Verified 10/01/23 14:33 OF REACTION acetaminophen [From Moose] Allergy Mild dystonia Verified 10/01/23 14:33 amlodipine Allergy Mild Abd Verified 10/01/23 14:33 cramps/diarrhea ascorbic acid Allergy Mild Itching Verified 10/01/23 14:33 [From Airborne (ascorbate sodium)] desloratadine Allergy Mild headache Verified 10/01/23 14:33 glutamine Allergy Mild Itching Verified 10/01/23 14:33 [From Airborne (ascorbate sodium)] herbal complex no.124 Allergy Mild Itching Verified 10/01/23 14:33 [From Airborne (ascorbate sodium)] hydrocodone [From Moose] Allergy Mild dystonia Verified 10/01/23 14:33 lysine [...] 14:33 hydrochlorothiazide Allergy Other Verified 10/01/23 14:33 Oucminq-RJE-LcC Reductase AdvReac Severe myalgias Verified 10/01/23 14:33 Inhibitor [Scjtptg-Ctu-Dge Reductase Inhibitor] amoxicillin [From Augmentin] AdvReac Other [...] Physical Exam Const Vital Signs: 10/01/23 14:33 10/01/23 15:17 Temperature 99.3 F H Temperature Source Temporal Pulse Rate 67 Respiratory Rate 22 H Respiratory Effort Short of Breath Respiratory Depth Normal Respiratory Pattern Normal Blood Pressure 161/62 H Blood Pressure Mean 95 Pulse Ox 95 Oxygen Delivery Method Room Air Room Air MDM <ALEN Diamond - Last Filed: 10/01/23 16:26> MDM MDM Narrative Medical decision making narrative: History gathered [...] 81.4 H Lymph % (Auto) 9.3 L Cannon % (Auto) 7.6 Eos % (Auto) 1.2 [...] Castillo MD - Last Filed: 10/01/23 16:29> MDM MDM Narrative Medical decision making narrative: I have [...] 81.4 H Lymph % (Auto) 9.3 L Cannon % (Auto) 7.6 Eos % (Auto) 1.2 [...] upper respiratory infection. Use nasal saline and asze-zrg-nvkdbzg congestion medication as needed. Follow-up with your doctor. If symptoms worsen return to ER. What to do if you have Problems For any increased pain, shortness of breath, bleeding, nausea or vomiting, chestpain, or any unexpected problems, contact your Primary Care Provider. Call [facility] ([phone]) or report to the closest Emergency Room. Call 911 if necessary. 10/01/23 1626 <Electronically signed by Mark Castillo MD> Cosigner Signature (if applicable): 10/01/231625 <Electronically signed by Amber LOWRY> CC: Dr. Octavio Reza MD ~ Signed [facility] Work Phone: 1(693) 592-690003-14-2024 Miscellaneous Notes* Telephone Encounter - Pattie Giles RN - 09/29/2023 2:53 PM EDT Patient calls to request an updated medication list be sent to [facility]. Faxed to [phone] per request. Pattie Giles RN documented in this encounterTogus Va Medical Center03-11-2024 Miscellaneous Notes* Telephone Encounter - Vibha Peña LPN - 09/26/2023 3:12 PM EDT Called the pharmacy and they gave a number of [phone]. Number called and PA approved from 09/26/23 to 09/25/24. PA approval number is [id number]. Pharmacy notified. Pt notified. * Telephone Encounter - Cesar Brush LPN - 09/26/2023 8:45 AM EDT PRIOR AUTHORIZATION Medication for Prior Authorization: glucose test strips testing 8 times daily Other formulary meds available : NO Insurance Company: [facility] Medicare Insurance Company phone number: [phone] Patient insurance ID number: [id number] Cesar Brush LPN Patient testing 8 times daily, blood sugars changing frequently, she takes 3 types insulin daily, Novolog at meals, NPH at breakfast and Glargine at bedtime. documented in this encounterTogus Va Medical Center03-08-2024 Miscellaneous Notes* Telephone Encounter - Parris Eckert [...] you. Parris Eckert RN. documented in this encounterTogus Va Medical Center03-07-2024 History of Present illness Narrative* Jeannine Perkins MD - 09/22/2023 1:15 PM EST Images from the original note were not included. . [facility] [place] Note Patient name: Attila Kidd PCP: Octavio Reza MD CC: Follow-up asthma HPI: Attila Kidd 78 year old female former 10 pack year smoker with PMH significant for HTN, HLD, GERD, DM2, THAIS non-compliant with BiPAP, nocturnal oxygen use, asthma, former patient of Dr. Luu, new to pr. History notable for influenza A infection in [...] 0.48 Low Monocytes % % 6.3 Abs Cannon <0.87 k/uL 0.46 Eosinophils % % 3.6 Abs Eosin <0.46 k/uL 0.26 Basophils % % 0.4 Abs Baso <0.11 k/uL 0.03 Immature Granulocytes % % 0.3 Abs Immature Gran <0.10 k/uL <0.03 NRBC /100 WBC 0.0 Absolute nRBC <0.01 k/uL <0.01 Diff Type Auto Imaging / Diagnostic Studies: CXR 05/2023 at [facility]: PAST MEDICAL HISTORY Diagnosis Date Adverse reaction [...] by mouth one time a week. Insulin Lincoln, Disposable, (BD ULTRA-FINE FADY PEN NEEDLE) 32 [...] -Weight loss advised Jeannine Perkins MD [facility] [place] documented in this encounterTogus Va Medical Center03-06-2024 Instructions* Patient Instructions* Octavio Reza MD - 09/21/2023 2:07 PM EST May continue taking half pill of metoprolol twice daily and take extra half just as needed for symptomatic PACs (extra beats) or if ever have heart racing episode that does not resolve on its own. documented in this encounterTogus Va Medical Center03-06-2024 History of Present illness Narrative* Octavio Reza MD - 09/21/2023 1:56 PM EST This note was created using eduPadriter. Subjective Attila Kidd is a 78 year old female. Patient presents with: ED Follow-up SUBJECTIVE: Attila Kidd is a 78 year old year old lady here today for ER follow up appointment for review ofmedical conditions. Was in ER for palpitations. [place] irregular. In ER twice. 09/15--told to stay [...] by mouth one time a week. Insulin Lincoln, Disposable, (BD ULTRA-FINE FADY PEN NEEDLE) 32 [...] normal. Judgment: Judgment normal. Reviewed labs from [facility] Assessment and Plan Encounter Diagnosis ICD-10-CM 1. [...] the date of the service which included phbk-ph-pnbj patient care, completing clinical documentation, obtaining and/or reviewing separately obtained history, performing a medically appropriate examination, counseling and educating the patient/family/caregiver, ordering medications, tests, or procedures, independently interpreting results (not separately reported), and communicating results to the patient/family/caregiver. Octavio Reza MD documented in this encounterTogus Va Medical Center03-06-2024 Discharge summary Author Nik Nunez [facility] September 21, 2023 3:45am Note Date/Time September 21, 2023 12:4 4am [facility] Medical Records Department [address] [place] [address] Emergency Department Summary 09/21/23 MR#: [id number] Acct: [id number] Name: ATTIAL KIDD Rep #:[id number] : 1945 78 From: Nik Nunez MD [...] having some prickling chest discomfort without radiation. [place] similar to prior episodes ofSVT. She states [...] getting here to the hospital. Currently asymptomatic. [facility] Medical History Abnormal EKG Asthma Bimalleolar ankle [...] amiodarone Allergy Intermediate Swelling Verified 09/16/23 17:54 Guernsey And Derivatives Allergy Intermediate Hives Verified 09/16/23 17:54 morphine Allergy Intermediate confusion Verified 09/16/23 17:54 moxifloxacin Allergy Intermediate Shortness Verified 09/16/23 17:54 of breath nabumetone Allergy Intermediate damaged Verified 09/16/23 17:54 kidney penicillin G Allergy Intermediate TURNS BLUE Verified 09/16/23 17:54 propoxyphene Allergy Intermediate PT UNSURE Verified 09/16/23 17:54 OF REACTION acetaminophen [From Moose] Allergy Mild dystonia Verified 09/16/23 17:54 amlodipine Allergy Mild Abd Verified 09/16/23 17:54 cramps/diarrhea ascorbic acid Allergy Mild Itching Verified 09/16/23 17:54 [From Airborne (ascorbate sodium)] desloratadine Allergy Mild headache Verified 09/16/23 17:54 glutamine Allergy Mild Itching Verified 09/16/23 17:54 [From Airborne (ascorbate sodium)] herbal complex no.124 Allergy Mild Itching Verified 09/16/23 17:54 [From Airborne (ascorbate sodium)] hydrocodone [From Moose] Allergy Mild dystonia Verified 09/16/23 17:54 lysine [...] 17:54 hydrochlorothiazide Allergy Other Verified 09/16/23 17:54 Fimszmk-EZT-LwC Reductase AdvReac Severe myalgias Verified 09/16/23 17:54 Inhibitor [Cchbsdr-Wix-Blu Reductase Inhibitor] amoxicillin [From Augmentin] AdvReac Other [...] used to see Dr. Lott with the [facility], but then she was referred to Dr. Lynn, with whom she did have a consultation at 1 point. She is welcome to follow-up with whoever she prefers and she was given the information for [facility] since I have that readily [...] (Auto) 67.5 Lymph % (Auto) 17.9 L Cannon % (Auto) 8.3 Eos % (Auto) 5.8 [...] - Areli Estevez PA [Med Staff - Count Includes [facility] Practice Prof] - As soon as possible Disposition Disposition: Home, Self Care What to do if you have Problems For any increased pain, shortness of breath, bleeding, nausea or vomiting, chestpain, or any unexpected problems, contact your Primary Care Provider. Call [facility] ([phone]) or report to the closest Emergency Room. Call 911 if necessary. 09/21/23 0345 <Electronically signed by Nik Nunez MD> Cosigner Signature (if applicable): CC: Dr. Octavio Reza MD ~ Signed [facility] Work Phone: 1(629) 639-359402-19-2024 Miscellaneous Notes* Telephone Encounter - Cesar Brush LPN - 09/05/2023 2:19 PM EST Patient returned call and went over results, notes from Lydia Grande CLOCK SMITH with understanding,. After going over questions with Sed rate and CRP being elevated. Patient wants to stay locally to see Volcanology Professor since she is in wheel chair and [...] If she would like to see a range ecologist I can place a consult. Schedule if [...] Lymph 1.00 - 4.00 k/uL 0.48 (L) Cannon% % 6.3 Abs Cannon <0.87 k/uL 0.46 Eosin% % 3.6 Abs [...] when able. Thank you. documented in this encounterTogus Va Medical Center02-15-2024 History of Present illness Narrative* Lydia Grande CORRECTIONAL CAPTAIN.VP CUSTOMER SERVICE - 09/01/2023 12:00 PM EST SUBJECTIVE: DTaP,Tdap,Td Vaccine(1 - Tdap) Never done RSV Vaccine(1 - 1-dose 60+ series) Never done Diabetic Foot Exam due on 10/27/2021 BP Controlled (<130/80) due on 05/11/2022 Urine Albumin:Creatinine Ratio due on 12/24/2022 Influenza Vaccine(1) due on 03/18/2023 Advance Directive Discussion due on 07/18/2023 LDL Cholesterol due on 09/14/2023 HPI Attila Kidd is a 78 year [...] Alleviate: advil seemed to help Aggravate: no Acds-mmn-wvikgya: Prior occurrence: no Review of Systems Respiratory: Negative. Musculoskeletal: Positive for arthralgias. Objective BP 144/74 Pulse 64 Resp 16 Wt (!) 156.5 kg (345 lb) SpO2 96% BMI 50.95 kg/m Physical Exam Vitals and nursing note reviewed. Constitutional: Appearance: Normal appearance. HENT: Head: Normocephalic and atraumatic. Mouth/Throat: Lips: [place]. Mouth: Mucous membranes are moist. Eyes: Conjunctiva/sclera: [...] by mouth one time a week. Insulin Lincoln, Disposable, (BD ULTRA-FINE FADY PEN NEEDLE) 32 [...] be seen sooner for follow-up. Lydia Grande APRN.VP CUSTOMER SERVICE Medical Decision Making: Problems: Low: Acute, uncomplicated illness or injury Data: Unique test(s) ordered: 3+ Risk: Moderate: Drug management Medical Decision Making Level: 4 - Moderate documented in this encounterTogus Va Medical Center12-07-2023 History of Present illness Narrative* Tierney Nunez [...] that time patient has been admitted to [facility] on two occasions. The first being in [...] (Patient not taking: Reported on 05/23/2023) Insulin Lincoln, Disposable, (BD ULTRA-FINE FADY PEN NEEDLE) 32 [...] above and updated in EMR. IMMUNIZATIONS Prevnar 13 - 2015 Pneumovax 23 - 2014 Influenza - xx COVID-19 - xx ROS: [...] 04/18/2017 56.0 (A) PFT, 06/23/2023 CXR, 05/28/2023 [facility] FINDINGS: The lungs are clear and expanded. [...] necessary. Tierney Nunez PA-C documented in this encounterTogus Va Medical Center11-28-2023 Miscellaneous Notes* Telephone Encounter - Gloria Rand [...] problem. Gloria Rand RN. documented in this encounterTogus Va Medical Center11-06-2023 Instructions* Patient Instructions* Octavio Reza MD - [...] with antifungal shampoo [31,32]. documented in this encounterTogus Va Medical Center11-06-2023 History of Present illness Narrative* Octavio Reza MD - 05/23/2023 2:20 PM EST This note was created using eduPadriter. Subjective Attila Kidd is a 77 year old female. Patient presents with: F/U 4 month: Labs prior SUBJECTIVE: Attila Kidd is a 77 year old year old lady here today for 4 month follow up appointment for review of medical conditions. Had low sugar this AM at 69. Able to get juice. Reviewed had bad experience at [facility]. Noted saw Dr. Lees. Working on increasing [...] times daily before meals. As directed Insulin Lincoln, Disposable, (BD ULTRA-FINE FADY PEN NEEDLE) 32 [...] in adult, unspecified whether serious comorbidity present ([facility]) E66.01 Z68.42 Continue efforts at healthier diet. Stay as active as able despite physical limitations 6. Charcot foot due to diabetes mellitus ([facility]) E11.610 7. Encounter for immunization Z23 INFLUENZA [...] the date of the service which included pawv-rx-nuts patient care, completing clinical documentation, obtaining and/or reviewing separately obtained history, performing a medically appropriate examination, counseling and educating the patient/family/caregiver, ordering medications, tests, or procedures, independently interpreting results (not separately reported), and communicating results to the patient/family/caregiver. Octavio Reza MD documented in this encounterTogus Va Medical Center10-30-2023 History of Present illness Narrative* Anant Lees MD - 05/16/2023 9:54 AM EDT Images from the original note were not included. Anant Lees MD Interventional Cardiology [address] [place] [address] Chief Complaint Patient presents with: New Patient: [...] Unspecified asthma(493.90) 11/2013 PFTs. 09/2013 and 10/2013 Kze[facility]. Vitamin D deficiency 08/21/2010 PAST SURGICAL HISTORY [...] time a week. 12 capsule 4 Insulin Lincoln, Disposable, (BD ULTRA-FINE FADY PEN NEEDLE) 32 [...] to correct any errors. documented in this encounterTogus Va Medical Center08-15-2023 Miscellaneous Notes* Telephone Encounter - Octavio Reza [...] and advise. Himanshu Bolden documented in this encounterTogus Va Medical Center08-07-2023 Miscellaneous Notes* Telephone Encounter - Cesar Brush LPN - 02/21/2023 1:42 PM EDT Printed order and faxed to [facility] as requested. Phoned patient and aware order was faxed as requested. * Telephone Encounter - Octavio Reza MD - 02/21/2023 1:08 PM EDT Filed order Fax order as requested * Telephone Encounter - Cesar Brush LPN - 02/21/2023 11:01 AM EDT Patient calling she had received her reminder from [facility] that she will need new order for 3 D mamm faxed to [phone]. Pending order to file. Please call patient when order has been faxed so she canschedule her appt at [facility]. Please advise documented in this encounterTogus Va Medical Center07-03-2023 Instructions* Patient Instructions* Octavio Reza MD - [...] just once a week. documented in this encounterTogus Va Medical Center07-03-2023 History of Present illness Narrative* Octavio Reza MD - 01/17/2023 1:40 PM EDT This note was created using eduPadriter. Subjective Attila Kidd is a 77 year [...] past. Noted had a terrible time with [facility] in the hospital. Was bad. Ended up [...] by mouth once daily as needed. Insulin Lincoln, Disposable, (BD ULTRA-FINE FADY PEN NEEDLE) 32 [...] which included preparing to see the patient, fwpt-mz-wszn patient care, completing clinical documentation, obtaining and/or reviewing separately obtained history, performing a medically appropriate examination, counseling and educating the pat ient/family/caregiver, ordering medications, tests, or procedures, independently interpreting results (not separately reported), and communicating results to the patient/family/caregiver. Octavio Reza MD documented in this encounterTogus Va Medical Center03-21-2023 History of Present illness Narrative* Davon Wolfe APRN.COMPUTER NUMERICAL CONTROL PROGRAMMER - 10/05/2022 1:06 PM EDT SUBJECTIVE Attila [...] a sore to her vaginal area. Saw enterprise integration developer in the past for this, Trudy Verma. Amoxicillin and hot compresses cleared this up in the past. Onset this time was about a week ago. Started with a painful hard lump to the outside skin of the vaginal area. Tried Keflex from enterprise integration developer due to concerns of medicaiton interactions with [...] by mouth once daily as needed. 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 Exam conducted with a churn driller helper present ( present in the room, ok [...] which included preparing to see the patient, egxp-mx-zwhg patient care, completing clinical documentation, obtaining and/or reviewing separately obtained history, performing a medically appropriate examination, counseling and educating the pat ient/family/caregiver, ordering medications, tests, or procedures, and care coordination (not separately reported). Return if symptoms worsen or fail to improve, for Keep next scheduled appointment.. Davon Wolfe APRN-FABIO documented in this encounterTogus Va Medical Center03-21-2023 Miscellaneous Notes* Telephone Encounter - Davon Wolfe APRN.CNP - 10/05/2022 8:37 AM EDT Noted. We can certainly take a look and decide on what is the best next steps for her. * Telephone Encounter - Sahara Moreno RN - 10/05/2022 8:29 AM EDT Patient phoned concerned the lump on labia spread to anus. Was seen in [facility] ER on 10-01 per pcp and [facility] SOLUTION ARCHITECT recommendation for lump on labia. Reports ER [...] very concerned. Scheduled same day appt with Notereader. documented in this encounterTogus Va Medical Center03-17-2023 Miscellaneous Notes* Telephone Encounter - Sahara Moreno [...] larger, she needs to return to her [facility] SOLUTION ARCHITECT to address the lump getting largerSounds like developing worsening cellulitis and probably abscess--might need incision and drainage if there is an abscess. If she is failing outpatient treatment with oral meds, might need IV antibiotics. Forwarding to Trudy Verma who had been following with her. documented in this encounterTogus Va Medical Center03-16-2023 Miscellaneous Notes* Telephone Encounter - Rochelle Hoyt [...] 8:09 AM EDT Patient calling Trudy Verma NP had her start Cephalexin 500 mg one capsule 4 times daily on 09/27 for her valvar issue and patient said 3 hours later she was noticing her heart was lower and she was more short of breath, her SPO2 was going down. She stopped it after 3 doses. She spoke to [facility] SOLUTION ARCHITECT and restarted medication yesterday and had same reaction 3 hours later. She was asking [facility] SOLUTION ARCHITECT to give her Bactrim rx, Trudy said no that is not what I want you to take. She was told to notify her PCP and see whatantibiotic PCP wants to put her on. [facility]. Please advise documented in this encounterTogus [facility] Center03-13-2023 Miscellaneous Notes* Telephone Encounter - Michelle Wu RN - 09/27/2022 9:45 AM EDT Patient notified. Michelle Wu RN The following approved medication requests have been transmitted electronically. Requested Prescriptions Signed Prescriptions Disp Refills cephALEXin (KEFLEX) 500 mg capsule 28 capsule 0 Sig: Take 1 capsule by mouth four times daily for 7 days. Authorizing Provider: TRUDY VERMA Pharmacy Information Pharmacy Address Telephone [facility] [address] [place] [address] * Telephone Encounter - Trudy Verma APRN.CNP - 09/27/2022 9:32 AM EDT Cephalexin prescribed since Bactrim can raise her potassium level. She should continue the warm compresses. If lump worsens, she will need to be evaluated in the office. Trudy Verma APRN.FABIO * Telephone Encounter - Tierney Guajardo RN [...] her last time without being seen. Uses [facility] in [place]. Tierney Guajardo RN documented in this encounterTogus Va Medical Center03-07-2023 Miscellaneous Notes* Telephone Encounter - Madeline Quintana [...] - 09/15/2022 12:26 PM EST Liliana with [facility] calling to see if there is a base rate or base rate sliding scale forthe Lispro insulin and Aspart insulin . Please advise. Cayla Lynne LPN documented in this encounterTogus Va Medical Center02-28-2023 Miscellaneous Notes* Telephone Encounter - Destinee Sims LPN - 09/14/2022 10:02 AM EST Patient notified. Destinee Sims LPN * Telephone Encounter - Destinee Sims LPN - 09/14/2022 10:01 AM EST ----- Message from Octavio Reza MD sent at 09/14/2022 8:42 AM EST ----- CBC within normal limits documented in this encounterTogus Va Medical Center02-21-2023 Instructions* Patient Instructions* Octavio Reza MD - [...] low sugar or dehydration. documented in this encounterTogus Va Medical Center02-21-2023 History of Present illness Narrative* Octavio Reza MD - 09/07/2022 5:20 PM EST This note was created using eduPadriter. Subjective Attila Kidd is a 77 year [...] by mouth once daily as needed. Insulin Lincoln, Disposable, (BD ULTRA-FINE FADY PEN NEEDLE) 32 [...] the date of the service which included dbpg-vi-imss patient care, completing clinical documentation, performing a medically appropriate examination, and counseling and educating the patient/family/caregiver. Octavio Reza MD documented in this encounterTogus Va Medical Center02-15-2023 Miscellaneous Notes* Telephone Encounter - Arleen Toure APRN.COMPUTER NUMERICAL CONTROL PROGRAMMER - 09/01/2022 3:14 PM EST Noted Arleen Toure APRN.CNP * Telephone Encounter - Cesar Brush LPN - 09/01/2022 2:06 PM EST Hubert from [facility] calling discharging patient from OT today patient has met all goals. documented in this encounterTogus Va Medical Center02-15-2023 Miscellaneous Notes* Telephone Encounter - Parris Eckert RN - 09/01/2022 9:06 AM EST Rekha PT with [facility] called and is notified of providers message and instructions. She voices understanding. Parris Eckert RN * Telephone Encounter - Lydia Grande APRN.CNS - 08/31/2022 4:39 PM EST Ok for [facility] plan, see below * Telephone Encounter - Parris Eckert RN - 08/31/2022 9:44 AM EST Rekha PT with [facility] called in her POC. She reports she [...] is a confidential number. documented in this encounterTogus Va Medical Center02-04-2023 Miscellaneous Notes* Telephone Encounter - Octavio Reza MD - 08/21/2022 9:19 AM EST Noted * Telephone Encounter - Sahara Moreno RN - 08/20/2022 1:45 PM EST [facility]- OT- [facility] - reporting POC: saw patient today for OT eval, and will see patient 1 x weekfor 3 weeks. documented in this encounterTogus Va Medical Center01-31-2023 Instructions* Patient Instructions* Octavio Reza MD - [...] off at night too. documented in this encounterTogus Va Medical Center01-31-2023 History of Present illness Narrative* Octavio Reza MD - 08/17/2022 4:24 PM EST This note was created using NoteWriter. Subjective Attila Kidd is a 77 year old female. Patient presents with: Hospital F/U: Follow up [facility] and [facility] discharge SUBJECTIVE: Attila Kidd is a 77 year old year old lady here today for follow up appointment for review of medical conditions. Discharged from [facility] after hospitalization at [facility] twice. Noted sugars have been running high since they changed her insulin at [facility]. Current probiotic causing constipation. Prefers Symbicort since [...] by mouth once daily as needed. Insulin Lincoln, Disposable, (BD ULTRA-FINE FADY PEN NEEDLE) 32 [...] the date of the service which included tbwo-om-bkjs patient care, completing clinical documentation, obtaining and/or reviewing separately obtained history, performing a medically appropriate examination, counseling and educating the patient/family/caregiver, and ordering medications, tests, or procedures. Octavio Reza MD documented in this encounterTogus Va Medical Center01-16-[address] [facility] August 02, 2022 12:32pm Note Date/Time August 02, 2022 8 :59am [facility] Medical Records Department [address] [place] [address] Progress Note - Hospitalist 08/02/22 0854 MR#: [id number] Acct: [id number] Name: ATTILA KIDD Rep #:[id number] : 1945 77 From: Zay Escalera DO PCP: Dr. Octavio Reaz MD Status:AD M IN Location: [place] [address]- Subjective Subjective Feels well. Breathing well w [...] 79.8 H, Lymph % (Auto) 11.1 L, Cannon % (Auto) 8.1, Eos % (Auto) 0.4, Baso % (Auto) 0.2, Absolute Neuts (auto)4.0, Absolute Lymphs (auto) 0.56 L, Nucleated RBC % 0.6 08/02/22 06:00: Sodium 137, Potassium 3.7, Chloride 101, Carbon Dioxide 26.0, Anion Gap 10, BUN 9, Creatinine 0.66, Estim Creat Clear Calc 49.24, Est GFR (MDRD) Af Amer 111, Est GFR (MDRD) Non-Af 92, BUN/Creatinine Ratio 13.5, [id number] H, Calcium 8.0 L, Phosphorus 2.4 L, [...] - Requested for PT OT eval and healthcare social worker to assist with discharge planning. To SNF 08/02/22 1232 <Electronically signed by Zay Escalera DO> Cosigner Signature (if applicable): CC: ~ Signed [facility] Work Phone: 1(319) 426-828401-15-2023 History and physical note Author Dr. Gan [facility] August 01, 2022 7:10pm Note Date/Time July 31, 2022 1 0:18pm [facility] Medical Records Department [address] [place] [address] H&P Exam - Hospitalist 07/31/229 MR#: [id number] Acct: [id number] Name: ATTILA KIDD Rep #:[id number] : 1945 77 From: Daisy Gan MD PCP: Dr. Octavio Reza MD Status:AD M IN Location: [place] [id number] HPI - General General Date of Admission: [...] otherwise negative. Vitals were BP of 133/83, OR of 99, RR of 23 and she [...] intracranial pathology. She has been admitted to [facility] for debility due to failure to thrive and COVID-19 infection. [facility] Medical History Abnormal EKG Asthma Bimalleolar ankle fracture Charcot's joint of left foot Diabetes mellitus, type II Essential hypertension GERD (gastroesophageal reflux disease) History of DVT (deep vein thrombosis) Hyperlipidemia Hypertension TAHIS (obstructive sleep apnea) Paroxysmal SVT (supraventricular tachycardia) [...] 23:52 hydrochlorothiazide Allergy Other Verified 07/31/22 23:52 Qgytfut-KQU-OjM Reductase AdvReac Severe myalgias Verified 07/31/22 23:52 Inhibitor [Apyyrti-Uck-Omn Reductase Inhibitor] codeine AdvReac Nausea Verified 07/31/22 [...] 86.7 H, Lymph % (Auto) 8.7 L, Cannon %(Auto) 4.4, Eos % (Auto) 0.0, Baso [...] Sl. Cloudy, Urine pH 6.0, Ur Specific Hayes 1.015, Urine Protein 15 H, Urine Glucose [...] and superimposed bacterial pneumonia * Admit to [facility]. * Patient recently tested positive for COVID [...] elects to be full code. * Total obhw-vt-neqr time 17 minutes. Charges/Coding Visit Charges Inpatient E&M: 26224 Init Hosp L3 Procedures Hospitalists Procedures: 32173 Advncd Care Plan 30 Min 08/01/221909 <Electronically signed by Daisy Gan MD> Cosigner Signature (if applicable): CC: Dr. Octavio Reza MD; Dr. Daisy Gan MD~ Signed [facility] Work Phone: 1(206) 463-817701-15-[address] Herring [facility] August 01, 2022 10:43am Note Date/Time August 01, 2022 7 :49am [facility] Medical Records Department [address] [place] [address] Progress Note - Hospitalist 08/01/22 0745 MR#: [id number] Acct: [id number] Name: ATTILA KIDD Rep #:[id number] : 1945 77 From: Tawanda Herring MD PCP: Dr. Octavio Reza MD Status:AD [facility] Location: [place] [address] Subjective Subjective Follow-up hypoxia Patient is a [...] 86.7 H, Lymph % (Auto) 8.7 L, Cannon %(Auto) 4.4, Eos % (Auto) 0.0, Baso [...] Sl. Cloudy, Urine pH 6.0, Ur Specific Hayes 1.015, Urine Protein 15 H, Urine Glucose [...] 77.8 H, Lymph % (Auto) 15.1 L, Cannon % (Auto) 6.7, Eos % (Auto) 0.0, [...] ischemic change. Electronically Signed: Jer Jennings MD, JD at 20:50 EST Reading Location ID and State: [facility] / [place] Tel , Service support , ADDENDUM: 07/31/222104 IMPRESSION: undefined Chest X-Ray 07/31/22 20:34 IMPRESSION: Right middle lobe, lingula and left lower lobe infiltrates. Small left pleural effusion. Electronically Signed: Jer Jennings MD, JD at 20:49 EST , Chest CT 08/01/22 [...] - Requested for PT OT eval and healthcare social worker to assist with discharge planning 10. DVT prophylaxis ? Lovenox Time spent in the patient's overall evaluation,decision-making process, review of diagnostic data, adjustment of medication, review of med reconciliation, ordering of labs for the following morning, discussion with other providers, nursing nursing and ancillary staff involved in patient's care, documentation, 58 Minutes Charges/Coding Visit Charges Inpatient E&M: 81032 Subs Hosp L3 08/01/22 1043 <Electronically signed by Tawanda Herring MD> Cosigner Signature (if applicable): CC: ~ Signed [facility] Work Phone: 1(882) 334-562601-15-[address] Kessler [facility] July 31, 2022 10:41pm Note Date/Time July 31, 2022 7 :58pm [facility] Medical Records Department [address] [place] [address] Emergency Department Summary 07/31/22 MR#: [id number] Acct: [id number] Name: ATTILA KIDD Rep #:[id number] : 1945 77 From: Jesus Kessler MD PCP: Dr. Octavio Reza MD Status:AD [facility] Location: [place] [address] HPI History of Present Illness Chief Complaint: [...] an error of one of her machines. [facility] Medical History Abnormal EKG Asthma Bimalleolar ankle [...] 17:52 hydrochlorothiazide Allergy Other Verified 07/31/22 17:52 Pswwfgz-QQX-JhY Reductase AdvReac Severe myalgias Verified 07/31/22 17:52 Inhibitor [Qgxiblt-Wkf-Cci Reductase Inhibitor] codeine AdvReac Nausea Verified 07/31/22 [...] 86.7 H Lymph % (Auto) 8.7 L Cannon % (Auto) 4.4 Eos % (Auto) 0.0 [...] Color Urine Clarity Urine pH Ur Specific Hayes Urine Protein Urine Glucose (UA) Urine Ketones [...] (Auto) Neut % (Auto) Lymph % (Auto) Cannon % (Auto) Eos % (Auto) Baso % [...] Sl. Cloudy Urine pH 6.0 Ur Specific Hayes 1.015 Urine Protein 15 H Urine Glucose [...] Jennings MD, MARISA at 20:49 EST , EKG Initial EKG: Comments: Plan depend interpretation of the patient's EKG done for generalized weakness shows sinus rhythm with PACs. No ventricular ectopy. No acute ST elevation. There are some diffuse nonspecific ST and T wave change. OR interval, QRS duration and QTc are normal. [...] Provider] - Disposition Disposition: Acute Care Hospital [facility] What to do if you have Problems For any increased pain, shortness of breath, bleeding, nausea or vomiting, chestpain, or any unexpected problems, contact your Primary Care Provider. Call [facility] ([phone]) or report to the closest Emergency Room. Call 911 if necessary. 07/31/222240 <Electronically signed by Jesus Kessler MD> Cosigner Signature (if applicable): CC: Dr. Octavio Reza MD ~ Signed [facility] Work Phone: 1(748) 944-426001-13-2023 Miscellaneous Notes* Telephone Encounter - Davon Wolfe APRN.CNP - 2022 11:30 AM EST Noted, agree * Telephone Encounter - Asmita Tapia RN - 2022 11:15 AM EST Charisse, a nurse with [facility] calling to update Dr. Reza that pt's called and notified [facility] that he was to give [...] to eat lunch. was advised to call [facility] for any further concerns. No call back needed, if PCP agreeable with instructions given to pt's . Thank you. documented in this encounterTogus Va Medical Center01-12-2023 Miscellaneous Notes* Telephone Encounter - Lydia Grande APRN.MADELIN - 07/29/2022 3:05 PM EST noted * Telephone Encounter - Darlene Mena RN - 07/29/2022 1:10 PM EST Bonnie OT from [facility] calls and states that patient requested only a one time visit. They worked on homesafety and equipment recommendations. Patient is overwhelmed currently and told Bonnie that if patient thinks she needs Bonnie again in a couple of weeks she will give her a call. Darlene Mena RN documented in this encounterTogus Va Medical Center01-12-2023 Miscellaneous Notes* Telephone Encounter - MAURICIO Azevedo - 07/29/2022 8:41 AM EST This Sw sent message back to TAMARA 07/26/22 note, in regards to SW order. [facility] has their own SW that makes home visits. This Sw believes that [facility] was looking for order for their own Sw to go and see patient. This SW does not provide home visits. documented in this encounterTogus Va Medical Center01-11-2023 Miscellaneous Notes* Addendum Note - Davon Wolfe [...] From prior message: Marilyn YING calling from [facility] to report plan of care for patient and [facility] will visit patient 3 times a week [...] Marilyn has been calling before each meal. [facility] faxed over updated medication list as to [...] work with PharmD through [facility] instead of plant safety engineer. How are her sugars running? 3) Can reschedule follow up * Telephone Encounter - Cayla Lynne LPN - 07/27/2022 2:36 PM EST Renu calling back to check status on message below. Cayla Lynne LPN * Telephone Encounter - Asmita Tapia RN - 07/26/2022 3:12 PM EST Renu, a [facility] nurse calling Dr. Reza with [...] she did not see eye-to-eye with past plant safety engineer. Lastly, during this call, this nurse noted pt was to have appt with PCP today but pt states she wasnot told about this appt. Please advise Renu at [phone]. Thank you. documented in this encounterTogus Va Medical Center01-11-2023 Miscellaneous Notes* Telephone Encounter - Cesar Trudi LONG - 07/28/2022 8:08 AM EST Patient has [...] you. Cesar Brush LPN documented in this encounterTogus Va Medical Center01-09-2023 Miscellaneous Notes* Telephone Encounter - Lydia Grande APRN.MADELIN - 07/26/2022 4:00 PM EST Noted, agree * Telephone Encounter - Darlene Mena RN - 07/26/2022 1:55 PM EST David PT calling from [facility] to report plan of care for patient and physical therapy will visit patient 2 times a week for 3 weeks. Physical therapy will work with patient on functional mobility training. No Call back needed if agreeable, Darlene Mena RN documented in this encounterTogus Va Medical Center01-02-2023 Miscellaneous Notes* Telephone Encounter - Octavio Reza [...] she gets plenty of liquids. Urine is harness inspector now. Does have a moist cough, but improved since hospital stay. No fever. BS this morning 229, which is much improved since hospital (BS ran 400's). Patient reports her fingers have been cold when taking POX reading, and will make surethey are warm before checking POX. Also has pink fingernail welsh on, and will remove from one finger [...] been? Please advise patient. documented in this encounterTogus Va Medical Center12-30-2022 Miscellaneous Notes* Telephone Encounter - Daina Kaye RN - 07/16/2022 7:15 PM EST Reason for Call: elevated blood sugar of 304, disoriented, sob, 02 sat is 86-89% while using oxygen Outcome: Pt and her both advised to call 911 now. They both agree. Reason for Disposition Acting confused (e.g., disoriented, slurred speech) Protocols used: Diabetes - High Blood Socev-UBHEF-HM Pt reports her blood sugar was elevated [...] to call 911 now. documented in this encounterTogus Va Medical Center12-05-2022 Miscellaneous Notes* Telephone Encounter - Patricia Mora [...] notify patient. Payton Soliman documented in this encounterTogus Va Medical Center11-21-2022 History of Present illness Narrative* Vladimir Fidelina - 06/07/2022 3:29 PM EST Pt chart [...] Vladimir Kitchen Associated attestation - Narendra Nolasco [facility] - 06/07/2022 3:49 PM EST The patient's [...] PharmD, MEd, BCPS, CDCES documented in this encounterTogus Va Medical Center11-21-2022 Miscellaneous Notes* Telephone Encounter - Lydia Grande APRN.VP CUSTOMER SERVICE - 06/07/2022 1:20 PM EST Noted, agree. [...] questions/concerns. Pattie Giles RN documented in this encounterTogus Va Medical Center11-01-2022 Miscellaneous Notes* Telephone Encounter - Octavio Reza MD - 05/18/2022 9:56 AM EDT Ordered during appointment * Telephone Encounter - Parris Eckert RN - 05/14/2022 3:02 PM EDT Pt has an appointment with provider on 05/18/22. Pt is asking if provider wanted labs ordered. Please call Pt once labs are placed. documented in this encounterTogus Va Medical Center11-01-2022 History of Present illness Narrative* Octavio Reza MD - 05/18/2022 9:50 AM EDT This note was created using eduPadriter. Subjective Attila Kidd is a 76 year [...] overall controlled Follows with Dr. Marin (senior maintenance technician) every 2 months. Has HCDPOA and LW. [...] 1 capsule by mouth twice daily. Insulin Lincoln, Disposable, (BD ULTRA-FINE FADY PEN NEEDLE) 32 [...] 65+ Octavio Reza MD documented in this encounterTogus Va Medical Center09-17-2022 Miscellaneous Notes* Telephone Encounter - Pattie Giles RN - 04/03/2022 12:00 PM EDT See previous TE with same request for vials. Awaiting insurance authorization to dispense. Pattie Giles RN * Telephone Encounter - Rehana Beck Pss - 04/03/2022 11:52 AM EDT Patient call sent from [facility] as a refill, but when speaking with patient she said her late night shots with Humalin are a nightmare and would like to go back on vials. Please address this with patient.Call sent to triage nurse after speaking with patient. documented in this encounterTogus Va Medical Center09-17-2022 Miscellaneous Notes* Telephone Encounter - Latrell Medina RN - 04/03/2022 11:44 AM EDT Pt calling with request for a prescription for Humalog Vials. Patient denies any new or worsening symptoms of which a provider is not aware: Yes. Conference pt to Dr. Reza's office for special education assistant with prescription. documented in this encounterTogus Va Medical Center09-14-2022 Miscellaneous Notes* Telephone Encounter - Octavio Reza [...] Eckert RN - 03/31/2022 1:54 PM EDT [facility] called in and reports that Pts [...] you. Asmita Tapia RN documented in this encounterTogus Va Medical Center08-01-2022 Instructions* Patient Instructions* Lydia Graned APRN.CNS - 02/15/2022 3:06 PM EDT Decrease caffeine intake. Drink plenty of fluids. Think about the CGM - continuous glucose monitor. documented in this encounterTogus Va Medical Center08-01-2022 History of Present illness Narrative* Lydia Grande [...] Both Lower Extremities She was seen at [facility] emergency department on February 11, 2022 for [...] to follow-up with PCP as needed. Sees [facility] provider, Areli Estevez. HTN: She [...] HENT: Head: Normocephalic and atraumatic. Mouth/Throat: Lips: Gosnell. Mouth: Mucous membranes are moist. Eyes: Conjunctiva/sclera: [...] DM Code E10.8, E11.610 Insulin: Yes Insulin Lincoln, Disposable, (BD ULTRA-FINE FADY PEN NEEDLE) 32 [...] CGM - continuous glucose monitor. Lydia Grande APRN.VP CUSTOMER SERVICE documented in this encounterTogus Va Medical Center07-28-2022 Miscellaneous Notes* Telephone Encounter - Octavio Reza MD - 02/11/2022 1:55 PM EDT Noted Reasonable for her to have her spudder decide on plan of care for noted [...] to go to ER for evaluation. Patient saidjames was going to call Associate Professor Of Mathematics office, Dr Lott before she would go to the ER. documented in this encounterTogus Va Medical Center07-07-2022 Miscellaneous Notes* Telephone Encounter - Ritika Lopez LPN - 01/21/2022 4:12 PM EDT Order faxed to [facility] scheduling. * Telephone Encounter - Lydia Grande APRN.MADELIN - 01/21/2022 4:06 PM EDT ok * Telephone Encounter - Darlene Mena RN - 01/20/2022 11:27 AM EDT Patient calls and is asking about mammogram order. Please place order and fax to [facility]. Please review and advise, Darlene Mena RN documented in this encounterTogus Va Medical Center06-27-2022 History of Present illness Narrative* Octavio Reza MD - 01/11/2022 3:15 PM EDT Images from the original note were not included. This note was created using eduPadriter. Subjective Attila Kidd is a 76 year [...] Lantus, not Basaglar per patient preference Insulin Lincoln, Disposable, (BD ULTRA-FINE FADY PEN NEEDLE) 32 [...] TABLET Octavio Reza MD documented in this encounterTogus Va Medical Center06-08-2022 History of Present illness Narrative* Guillermo Maurer MD - 12/23/2021 4:28 PM EDT This note was created using [employer] Picture[employer]. Subjective Patient presents with: Abdominal Pain PCP MD Gary Ortegagm ForresterBozena was here per CC. Abdominal pain is [...] Lantus, not Basaglar per patient preference Insulin Lincoln, Disposable, (BD ULTRA-FINE FADY PEN NEEDLE) 32 [...] (FLONASE) 50 mcg/actuation nasal spray Use 1 [place] in each nostril once daily. (Patientnot taking: [...] recommendations. Guillermo Maurer MD documented in this encounterTogus Va Medical Center06-02-2022 Instructions* Patient Instructions* Kristyn Flores - 12/17/2021 [...] bruising increases, despite treatment. Copyright 1994 by [email or web address] documented in this encounterTogus Va Medical Center06-02-2022 History of Present illness Narrative* Wanda Phillips APRN.COMPUTER NUMERICAL CONTROL PROGRAMMER - 12/17/2021 1:12 PM EDT Subjective Attila [...] history is provided by the patient. No healthcare interpreter was used. Arm Pain The pain is [...] (FLONASE) 50 mcg/actuation nasal spray Use 1 [place] in each nostril once daily. blood sugar [...] Lantus, not Basaglar per patient preference Insulin Lincoln, Disposable, (BD ULTRA-FINE FADY PEN NEEDLE) 32 [...] AP/LAT RIGHT Radiologist IMPRESSION: No acute process. Senior Health Physics Technician: EVIE Transcribe Date/Time: Dec 17 2021 1:44P Dictated by : CESAR REYES MD - X-ray is negative for fracture. - Wear compression wrap and sling as needed for comfort. May remove at night. - Take Ibuprofen as needed for pain. - Follow up with orthopedics if pain worsens or persists past 3 days. - CONSULT PANEL TO ORTHOPAEDICS RENATA Prado student TEACHING PROVIDER (Physician/PA/CORRECTIONAL CAPTAIN) NOTE OF PERSONAL INVOLVEMENT IN CARE: I have personally seen and examined the patient and performed the medical decision-making components. I have reviewed the Advanced Practice Registered Nurse (CORRECTIONAL CAPTAIN) Student's documentation and verified the findings in the note as written. Any additions or changes are noted in bold/italics. Signature: Wanda Phillips Date: 12/17/2021 Time: 2:06 PM documented in this encounterTogus Va Medical Center06-02-2022 Miscellaneous Notes* Telephone Encounter - Lydia Grande APRN.VP CUSTOMER SERVICE - 12/17/2021 12:55 PM EDT noted, agree [...] agreeable. Rochelle Hoyt RN [facility] History of Present illness Narrative* RT Lia(R) [...] 16, 2021 9:40 AM documented in this encounterT[facility] Miscellaneous Notes* Telephone Encounter - Eleni Serrano [...] advise. Eleni Serrano LPN documented in this encounterT[facility]22 Miscellaneous Notes* Telephone Encounter - Lydia Grande APRN.MADELIN - 12/04/2021 1:56 PM EDT Noted, agree [...] pcp will call back. documented in this encounterT[facility]04[facility]22[facility]2022 Miscellaneous Notes* Telephone Encounter - Karina Jackson LPN - 11/06/2021 10:20 AM EDT Spoke to Dr Carmichael and updated patient on results, To repeat colonoscopy in 5 years. * Telephone Encounter - Karina Jackson LPN - 11/06/2021 8:10 AM EDT Patient called asking for results from colonoscopy. [phone] documented in this encounterT[facility]04-14-2022 Nurse Note* Dafne Santana RN - 10/29/2021 8:40 AM EDT Abdomen soft non-distended. Will continue to monitor. * Amanda Santiago RN - 10/29/2021 8:04 AM EDT [facility] NURSING HAND OFF NOTE SBAR Hand off given to Eris Mean RN. Hand off was communicated verbally and at the patient's bedside and all questions were answered. Amanda Santiago RN documented in this encounterT[facility]04-14-2022 History and physical note * Holland Carmichael [...] (FLONASE) 50 mcg/actuation nasal spray Use 1 [place] in each nostril once daily. blood sugar [...] Lantus, not Basaglar per patient preference Insulin [place], Disposable, (BD ULTRA-FINE FADY PEN NEEDLE) 32 [...] entered by the nurse and reviewed by me Nursing Notes: Serina Catherine RN 09/21/2021 3:38 [...] 2021 TIME: 7:53 AM documented in this encounterT[facility]04-12-2022 Miscellaneous Notes* Telephone Encounter - CHRISTOPHER Sosa - 10/27/2021 4:43 PM EDT Spoke with patient on telephone. Patient verbalizes understanding of providers instructions. CHRISTOPHER Sosa * Telephone Encounter - Lydia Grande APRN.CNS - 10/27/2021 4:32 PM EDT Her BP [...] be able to get colonoscopy done on Th. Pt is also worried that when she just does fluids that her bp will be high. Pt is asking if she should still have colonoscopy and what she can do about bp running high. Rakel Agosto LPN documented in this encounterT[facility]04-12-2022 Miscellaneous Notes* Telephone Encounter - Lydia Grande [...] she should move forward with the procedure. Atitla also states that she was on clear liquids yesterday and she is not feeling well. She states that she is nauseated. Attila also has concerned because when she has diarrhea, her blood sugar bottom's out. At this time, she wants to cancel the colonoscopy, until her blood pressures are under better control. Please call to reschedule. Radha Lacy RN documented in this encounterT[facility]04-11-2022 Miscellaneous Notes* Telephone Encounter - Ritika Lopez LPN - 10/26/2021 2:13 PM EDT Patient was notified of providers message and verbalized understanding. Patient is aware the BP readings also went to Dr. Carmichael as well. * Telephone Encounter - Lydia Grande APRN.CNS - 10/26/2021 12:11 PM EDT Below noted. [...] PM 149/81 10-05-21 AM 136/72 PM 143/67 3-- AM 144/70 PM 157/82 10-07-21 AM 144/74 [...] possible. Cayla Lynne LPN documented in this encounterT[facility]04-11-2022 Miscellaneous Notes* Telephone Encounter - Cayla Lynne [...] prior to procedure. Please advise patient. PH: [phone]. Thank you. documented in this encounterT[facility]04-07-2022 Miscellaneous Notes* Telephone Encounter - Asmita Tapia [...] you. Asmita Tapia RN documented in this encounterT[facility]03-08-2022 Miscellaneous Notes* Telephone Encounter - Shin Garay - 09/22/2021 9:54 AM EST 10-29-2021 Colon ASC documented in this encounterT[facility]02-25-2022 History of Present illness Narrative* Octavio Reza MD - 09/11/2021 11:26 AM EST This note was created using eduPadriter. Subjective Attila Kidd is a 76 year [...] (FLONASE) 50 mcg/actuation nasal spray Use 1 [place] in each nostril once daily. blood sugar [...] Lantus, not Basaglar per patient preference Insulin [place], Disposable, (BD ULTRA-FINE FADY PEN NEEDLE) 32 [...] SURGERY Octavio Reza MD documented in this encounterT[facility]10-25-2021 History of Past illness Narrative* Problem Noted Date Resolved Date OVERWEIGHT 05/11/2021 Last Assessment & Plan: Has made dietary changes since recent hospitalization, decreased carbs, feels better, plans to work harder on wt loss. Getting 3 wheeled bike so she can go on trails, not just exercise bike indoors. documented as of this encounter (statuses as of 10/22/2021) [facility] of [facility] illness Narrative* Problem Noted Date Resolved Date OVERWEIGHT 05/11/2021 Last Assessment & Plan: Has made dietary changes since recent hospitalization, decreased carbs, feels better, plans to work harder on wt loss. Getting 3 wheeled bike so she can go on trails, not just exercise bike indoors. documented as of this encounter (statuses as of 10/26/2021) [facility] Narrative* Problem Noted Date Resolved Date OVERWEIGHT 05/11/2021 Last Assessment & Plan: Has made dietary changes since recent hospitalization, decreased carbs, feels better, plans to work harder on wt loss. Getting 3 wheeled bike so she can go on trails, not just exercise bike indoors. documented as of this encounter (statuses as of 10/27/2021) [facility] Narrative* Problem Noted Date Resolved Date OVERWEIGHT 05/11/2021 Last Assessment & Plan: Has made dietary changes since recent hospitalization, decreased carbs, feels better, plans to work harder on wt loss. Getting 3 wheeled bike so she can go on trails, not just exercise bike indoors. documented as of this encounter (statuses as of 10/30/2021) [facility] Narrative* Problem Noted Date Resolved Date OVERWEIGHT 05/11/2021 Last Assessment & Plan: Has made dietary changes since recent hospitalization, decreased carbs, feels better, plans to work harder on wt loss. Getting 3 wheeled bike so she can go on trails, not just exercise bike indoors. documented as of this encounter (statuses as of 11/02/2021) [facility] Narrative* Problem Noted Date Resolved Date OVERWEIGHT 05/11/2021 Last Assessment & Plan: Has made dietary changes since recent hospitalization, decreased carbs, feels better, plans to work harder on wt loss. Getting 3 wheeled bike so she can go on trails, not just exercise bike indoors. documented as of this encounter (statuses as of 11/06/2021) [facility] Narrative* Problem Noted Date Resolved Date OVERWEIGHT 05/11/2021 Last Assessment & Plan: Has made dietary changes since recent hospitalization, decreased carbs, feels better, plans to work harder on wt loss. Getting 3 wheeled bike so she can go on trails, not just exercise bike indoors. documented as of this encounter (statuses as of 12/07/2021) [facility] Narrative* Problem Noted Date Resolved Date OVERWEIGHT 05/11/2021 Last Assessment & Plan: Has made dietary changes since recent hospitalization, decreased carbs, feels better, plans to work harder on wt loss. Getting 3 wheeled bike so she can go on trails, not just exercise bike indoors. documented as of this encounter (statuses as of 12/16/2021) [facility] Narrative* Problem Noted Date Resolved Date OVERWEIGHT 05/11/2021 Last Assessment & Plan: Has made dietary changes since recent hospitalization, decreased carbs, feels better, plans to work harder on wt loss. Getting 3 wheeled bike so she can go on trails, not just exercise bike indoors. documented as of this encounter (statuses as of 12/16/2021) [facility] Narrative* Problem Noted Date Resolved Date OVERWEIGHT 05/11/2021 Last Assessment & Plan: Has made dietary changes since recent hospitalization, decreased carbs, feels better, plans to work harder on wt loss. Getting 3 wheeled bike so she can go on trails, not just exercise bike indoors. documented as of this encounter (statuses as of 12/17/2021) [facility] Narrative* Problem Noted Date Resolved Date OVERWEIGHT 05/11/2021 Last Assessment & Plan: Has made dietary changes since recent hospitalization, decreased carbs, feels better, plans to work harder on wt loss. Getting 3 wheeled bike so she can go on trails, not just exercise bike indoors. documented as of this encounter (statuses as of 12/17/2021) [facility] Narrative* Problem Noted Date Resolved Date OVERWEIGHT 05/11/2021 Last Assessment & Plan: Has made dietary changes since recent hospitalization, decreased carbs, feels better, plans to work harder on wt loss. Getting 3 wheeled bike so she can go on trails, not just exercise bike indoors. documented as of this encounter (statuses as of 12/17/2021) [facility] Narrative* Problem Noted Date Resolved Date OVERWEIGHT 05/11/2021 Last Assessment & Plan: Has made dietary changes since recent hospitalization, decreased carbs, feels better, plans to work harder on wt loss. Getting 3 wheeled bike so she can go on trails, not just exercise bike indoors. documented as of this encounter (statuses as of 12/24/2021) [facility] N[facility]ative* Problem Noted Date Resolved Date OVERWEIGHT 05/11/2021 Last Assessment & Plan: Has made dietary changes since recent hospitalization, decreased carbs, feels better, plans to work harder on wt loss. Getting 3 wheeled bike so she can go on trails, not just exercise bike indoors. documented as of this encounter (statuses as of 01/04/2022) [facility] Narr[facility]* Problem Noted Date Resolved Date OVERWEIGHT 05/11/2021 Last Assessment & Plan: Has made dietary changes since recent hospitalization, decreased carbs, feels better, plans to work harder on wt loss. Getting 3 wheeled bike so she can go on trails, not just exercise bike indoors. documented as of this encounter (statuses as of 01/21/2022) [facility] N[facility]* Problem Noted Date Resolved Date OVERWEIGHT 05/11/2021 Last Assessment & Plan: Has made dietary changes since recent hospitalization, decreased carbs, feels better, plans to work harder on wt loss. Getting 3 wheeled bike so she can go on trails, not just exercise bike indoors. documented as of this encounter (statuses as of 02/11/2022) [facility] Narrative* Problem Noted Date Resolved Date OVERWEIGHT 05/11/2021 Last Assessment & Plan: Has made dietary changes since recent hospitalization, decreased carbs, feels better, plans to work harder on wt loss. Getting 3 wheeled bike so she can go on trails, not just exercise bike indoors. documented as of this encounter (statuses as of 02/15/2022) [facility]* Problem Noted Date Resolved Date OVERWEIGHT 05/11/2021 Last Assessment & Plan: Has made dietary changes since recent hospitalization, decreased carbs, feels better, plans to work harder on wt loss. Getting 3 wheeled bike so she can go on trails, not just exercise bike indoors. documented as of this encounter (statuses as of 03/14/2022) [facility]* Problem Noted Date Resolved Date OVERWEIGHT 05/11/2021 Last Assessment & Plan: Has made dietary changes since recent hospitalization, decreased carbs, feels better, plans to work harder on wt loss. Getting 3 wheeled bike so she can go on trails, not just exercise bike indoors. documented as of this encounter (statuses as of 04/01/2022) [facility]arr[facility]* Problem Noted Date Resolved Date OVERWEIGHT 05/11/2021 Last Assessment & Plan: Has made dietary changes since recent hospitalization, decreased carbs, feels better, plans to work harder on wt loss. Getting 3 wheeled bike so she can go on trails, not just exercise bike indoors. documented as of this encounter (statuses as of 04/03/2022) [facility]* Problem Noted Date Resolved Date OVERWEIGHT 05/11/2021 Last Assessment & Plan: Has made dietary changes since recent hospitalization, decreased carbs, feels better, plans to work harder on wt loss. Getting 3 wheeled bike so she can go on trails, not just exercise bike indoors. documented as of this encounter (statuses as of 05/18/2022) [facility]* Problem Noted Date Resolved Date OVERWEIGHT 05/11/2021 Last Assessment & Plan: Has made dietary changes since recent hospitalization, decreased carbs, feels better, plans to work harder on wt loss. Getting 3 wheeled bike so she can go on trails, not just exercise bike indoors. documented as of this encounter (statuses as of 06/07/2022) [facility]* Problem Noted Date Resolved Date OVERWEIGHT 05/11/2021 Last Assessment & Plan: Has made dietary changes since recent hospitalization, decreased carbs, feels better, plans to work harder on wt loss. Getting 3 wheeled bike so she can go on trails, not just exercise bike indoors. documented as of this encounter (statuses as of 06/07/2022) [facility]* Problem Noted Date Resolved Date OVERWEIGHT 05/11/2021 Last Assessment & Plan: Has made dietary changes since recent hospitalization, decreased carbs, feels better, plans to work harder on wt loss. Getting 3 wheeled bike so she can go on trails, not just exercise bike indoors. documented as of this encounter (statuses as of 06/14/2022) [facility]* Problem Noted Date Resolved Date OVERWEIGHT 05/11/2021 Last Assessment & Plan: Has made dietary changes since recent hospitalization, decreased carbs, feels better, plans to work harder on wt loss. Getting 3 wheeled bike so she can go on trails, not just exercise bike indoors. documented as of this encounter (statuses as of 06/21/2022) [facility]* Problem Noted Date Resolved Date OVERWEIGHT 05/11/2021 Last Assessment & Plan: Has made dietary changes since recent hospitalization, decreased carbs, feels better, plans to work harder on wt loss. Getting 3 wheeled bike so she can go on trails, not just exercise bike indoors. documented as of this encounter (statuses as of 07/22/2022) [facility]* Problem Noted Date Resolved Date OVERWEIGHT 05/11/2021 Last Assessment & Plan: Has made dietary changes since recent hospitalization, decreased carbs, feels better, plans to work harder on wt loss. Getting 3 wheeled bike so she can go on trails, not just exercise bike indoors. documented as of this encounter (statuses as of 07/27/2022) [facility]* Problem Noted Date Resolved Date OVERWEIGHT 05/11/2021 Last Assessment & Plan: Has made dietary changes since recent hospitalization, decreased carbs, feels better, plans to work harder on wt loss. Getting 3 wheeled bike so she can go on trails, not just exercise bike indoors. documented as of this encounter (statuses as of 07/28/2022) [facility]* Problem Noted Date Resolved Date OVERWEIGHT 05/11/2021 Last Assessment & Plan: Has made dietary changes since recent hospitalization, decreased carbs, feels better, plans to work harder on wt loss. Getting 3 wheeled bike so she can go on trails, not just exercise bike indoors. documented as of this encounter (statuses as of 07/28/2022) [facility]* Problem Noted Date Resolved Date OVERWEIGHT 05/11/2021 Last Assessment & Plan: Has made dietary changes since recent hospitalization, decreased carbs, feels better, plans to work harder on wt loss. Getting 3 wheeled bike so she can go on trails, not just exercise bike indoors. documented as of this encounter (statuses as of 07/29/2022) [facility]* Problem Noted Date Resolved Date OVERWEIGHT 05/11/2021 Last Assessment & Plan: Has made dietary changes since recent hospitalization, decreased carbs, feels better, plans to work harder on wt loss. Getting 3 wheeled bike so she can go on trails, not just exercise bike indoors. documented as of this encounter (statuses as of 2022) [facility]* Problem Noted Date Resolved Date OVERWEIGHT 05/11/2021 Last Assessment & Plan: Has made dietary changes since recent hospitalization, decreased carbs, feels better, plans to work harder on wt loss. Getting 3 wheeled bike so she can go on trails, not just exercise bike indoors. documented as of this encounter (statuses as of 08/23/2022) [facility] Problem Noted Date Resolved Date OVERWEIGHT 05/11/2021 Last Assessment & Plan: Has made dietary changes since recent hospitalization, decreased carbs, feels better, plans to work harder on wt loss. Getting 3 wheeled bike so she can go on trails, not just exercise bike indoors. documented as of this encounter (statuses as of 09/01/2022) [facility] Problem Noted Date Resolved Date OVERWEIGHT 05/11/2021 Last Assessment & Plan: Has made dietary changes since recent hospitalization, decreased carbs, feels better, plans to work harder on wt loss. Getting 3 wheeled bike so she can go on trails, not just exercise bike indoors. documented as of this encounter (statuses as of 09/02/2022) [facility] Problem Noted Date Resolved Date OVERWEIGHT 05/11/2021 Last Assessment & Plan: Has made dietary changes since recent hospitalization, decreased carbs, feels better, plans to work harder on wt loss. Getting 3 wheeled bike so she can go on trails, not just exercise bike indoors. documented as of this encounter (statuses as of 09/08/2022) [facility] Problem Noted Date Resolved Date OVERWEIGHT 05/11/2021 Last Assessment & Plan: Has made dietary changes since recent hospitalization, decreased carbs, feels better, plans to work harder on wt loss. Getting 3 wheeled bike so she can go on trails, not just exercise bike indoors. documented as of this encounter (statuses as of 09/14/2022) [facility] Problem Noted Date Resolved Date OVERWEIGHT 05/11/2021 Last Assessment & Plan: Has made dietary changes since recent hospitalization, decreased carbs, feels better, plans to work harder on wt loss. Getting 3 wheeled bike so she can go on trails, not just exercise bike indoors. documented as of this encounter (statuses as of 09/20/2022) [facility] Problem Noted Date Resolved Date OVERWEIGHT 05/11/2021 Last Assessment & Plan: Has made dietary changes since recent hospitalization, decreased carbs, feels better, plans to work harder on wt loss. Getting 3 wheeled bike so she can go on trails, not just exercise bike indoors. documented as of this encounter (statuses as of 09/21/2022) [facility] Problem Noted Date Resolved Date OVERWEIGHT 05/11/2021 Last Assessment & Plan: Has made dietary changes since recent hospitalization, decreased carbs, feels better, plans to work harder on wt loss. Getting 3 wheeled bike so she can go on trails, not just exercise bike indoors. documented as of this encounter (statuses as of 09/27/2022) [facility] Problem Noted Date Resolved Date OVERWEIGHT 05/11/2021 Last Assessment & Plan: Has made dietary changes since recent hospitalization, decreased carbs, feels better, plans to work harder on wt loss. Getting 3 wheeled bike so she can go on trails, not just exercise bike indoors. documented as of this encounter (statuses as of 10/01/2022) [facility] Problem Noted Date Resolved Date OVERWEIGHT 05/11/2021 Last Assessment & Plan: Has made dietary changes since recent hospitalization, decreased carbs, feels better, plans to work harder on wt loss. Getting 3 wheeled bike so she can go on trails, not just exercise bike indoors. documented as of this encounter (statuses as of 10/01/2022) [facility] Problem Noted Date Resolved Date OVERWEIGHT 05/11/2021 Last Assessment & Plan: Has made dietary changes since recent hospitalization, decreased carbs, feels better, plans to work harder on wt loss. Getting 3 wheeled bike so she can go on trails, not just exercise bike indoors. documented as of this encounter (statuses as of 10/05/2022) [facility] Problem Noted Date Resolved Date OVERWEIGHT 05/11/2021 Last Assessment & Plan: Has made dietary changes since recent hospitalization, decreased carbs, feels better, plans to work harder on wt loss. Getting 3 wheeled bike so she can go on trails, not just exercise bike indoors. documented as of this encounter (statuses as of 10/07/2022) [facility] Problem Noted Date Diagnosed Date Resolved Date OVERWEIGHT 05/11/2021 Last Assessment & Plan: Has made dietary changes since recent hospitalization, decreased carbs, feels better, plans to work harder on wt loss. Getting 3 wheeled bike so she can go on trails, not just exercise bike indoors. documented as of this encounter (statuses as of 02/21/2023) [facility] Problem Noted Date Diagnosed Date Resolved Date OVERWEIGHT 05/11/2021 Last Assessment & Plan: Has made dietary changes since recent hospitalization, decreased carbs, feels better, plans to work harder on wt loss. Getting 3 wheeled bike so she can go on trails, not just exercise bike indoors. documented as of this encounter (statuses as of 02/21/2023) [facility] Problem Noted Date Diagnosed Date Resolved Date OVERWEIGHT 05/11/2021 Last Assessment & Plan: Has made dietary changes since recent hospitalization, decreased carbs, feels better, plans to work harder on wt loss. Getting 3 wheeled bike so she can go on trails, not just exercise bike indoors. documented as of this encounter (statuses as of 03/01/2023) [facility] Problem Noted Date Diagnosed Date Resolved Date OVERWEIGHT 05/11/2021 Last Assessment & Plan: Has made dietary changes since recent hospitalization, decreased carbs, feels better, plans to work harder on wt loss. Getting 3 wheeled bike so she can go on trails, not just exercise bike indoors. documented as of this encounter (statuses as of 05/16/2023) [facility] Problem Noted Date Diagnosed Date Resolved Date OVERWEIGHT 05/11/2021 Last Assessment & Plan: Has made dietary changes since recent hospitalization, decreased carbs, feels better, plans to work harder on wt loss. Getting 3 wheeled bike so she can go on trails, not just exercise bike indoors. documented as of this encounter (statuses as of 06/15/2023) [facility] of Past illness Narrative* Problem Noted Date Diagnosed Date Resolved Date OVERWEIGHT 05/11/2021 Last Assessment & Plan: Has made dietary changes since recent hospitalization, decreased carbs, feels better, plans to work harder on wt loss. Getting 3 wheeled bike so she can go on trails, not just exercise bike indoors. documented as of this encounter (statuses as of 06/23/2023) [facility]10-25-2021 History of Past illness Narrative* Problem Noted Date Diagnosed Date Resolved Date OVERWEIGHT 05/11/2021 Last Assessment & Plan: Has made dietary changes since recent hospitalization, decreased carbs, feels better, plans to work harder on wt loss. Getting 3 wheeled bike so she can go on trails, not just exercise bike indoors. documented as of this encounter (statuses as of 06/24/2023) [facility]10-25-2021 History of Past illness Narrative* Problem Noted Date Diagnosed Date Resolved Date OVERWEIGHT 05/11/2021 Last Assessment & Plan: Has made dietary changes since recent hospitalization, decreased carbs, feels better, plans to work harder on wt loss. Getting 3 wheeled bike so she can go on trails, not just exercise bike indoors. documented as of this encounter (statuses as of 06/26/2023) [facility]10-25-2021 History of Past illness Narrative* Problem Noted Date Diagnosed Date Resolved Date OVERWEIGHT 05/11/2021 Last Assessment & Plan: Has made dietary changes since recent hospitalization, decreased carbs, feels better, plans to work harder on wt loss. Getting 3 wheeled bike so she can go on trails, not just exercise bike indoors. documented as of this encounter (statuses as of 09/01/2023) [facility]21 History of Past illness Narrative* Problem Noted Date Diagnosed Date Resolved Date OVERWEIGHT 05/11/2021 Last Assessment & Plan: Has made dietary changes since recent hospitalization, decreased carbs, feels better, plans to work harder on wt loss. Getting 3 wheeled bike so she can go on trails, not just exercise bike indoors. documented as of this encounter (statuses as of 09/05/2023) [facility]21 History of Past illness Narrative* Problem Noted Date Diagnosed Date Resolved Date OVERWEIGHT 05/11/2021 Last Assessment & Plan: Has made dietary changes since recent hospitalization, decreased carbs, feels better, plans to work harder on wt loss. Getting 3 wheeled bike so she can go on trails, not just exercise bike indoors. documented as of this encounter (statuses as of 09/22/2023) [facility] History of Past illness Narrative* Problem Noted Date Diagnosed Date Resolved Date OVERWEIGHT 05/11/2021 Last Assessment & Plan: Has made dietary changes since recent hospitalization, decreased carbs, feels better, plans to work harder on wt loss. Getting 3 wheeled bike so she can go on trails, not just exercise bike indoors. documented as of this encounter (statuses as of 09/23/2023) [facility] History of Past illness Narrative* Problem Noted Date Diagnosed Date Resolved Date OVERWEIGHT 05/11/2021 Last Assessment & Plan: Has made dietary changes since recent hospitalization, decreased carbs, feels better, plans to work harder on wt loss. Getting 3 wheeled bike so she can go on trails, not just exercise bike indoors. documented as of this encounter (statuses as of 09/26/2023) [facility] History of Past illness Narrative* Problem Noted Date Diagnosed Date Resolved Date OVERWEIGHT 05/11/2021 Last Assessment & Plan: Has made dietary changes since recent hospitalization, decreased carbs, feels better, plans to work harder on wt loss. Getting 3 wheeled bike so she can go on trails, not just exercise bike indoors. documented as of this encounter (statuses as of 09/29/2023) [facility] History of Past illness Narrative* Problem Noted Date Diagnosed Date Resolved Date OVERWEIGHT 05/11/2021 Last Assessment & Plan: Has made dietary changes since recent hospitalization, decreased carbs, feels better, plans to work harder on wt loss. Getting 3 wheeled bike so she can go on trails, not just exercise bike indoors. documented as of this encounter (statuses as of 10/03/2023) [facility] History of Past illness Narrative* Problem Noted Date Diagnosed Date Resolved Date OVERWEIGHT 05/11/2021 Last Assessment & Plan: Has made dietary changes since recent hospitalization, decreased carbs, feels better, plans to work harder on wt loss. Getting 3 wheeled bike so she can go on trails, not just exercise bike indoors. documented as of this encounter (statuses as of 10/18/2023) [facility] History of Past illness Narrative* Problem Noted Date Diagnosed Date Resolved Date OVERWEIGHT 05/11/2021 Last Assessment & Plan: Has made dietary changes since recent hospitalization, decreased carbs, feels better, plans to work harder on wt loss. Getting 3 wheeled bike so she can go on trails, not just exercise bike indoors. documented as of this encounter (statuses as of 10/24/2023) [facility] History of Past illness Narrative* Problem Noted Date Diagnosed Date Resolved Date OVERWEIGHT 05/11/2021 Last Assessment & Plan: Has made dietary changes since recent hospitalization, decreased carbs, feels better, plans to work harder on wt loss. Getting 3 wheeled bike so she can go on trails, not just exercise bike indoors. documented as of this encounter (statuses as of 10/30/2023) [facility] History of Past illness Narrative* Problem Noted Date Diagnosed Date Resolved Date OVERWEIGHT 05/11/2021 Last Assessment & Plan: Has made dietary changes since recent hospitalization, decreased carbs, feels better, plans to work harder on wt loss. Getting 3 wheeled bike so she can go on trails, not just exercise bike indoors. documented as of this encounter (statuses as of 10/31/2023) [facility] History of Past illness Narrative* Problem Noted Date Diagnosed Date Resolved Date OVERWEIGHT 05/11/2021 Last Assessment & Plan: Has made dietary changes since recent hospitalization, decreased carbs, feels better, plans to work harder on wt loss. Getting 3 wheeled bike so she can go on trails, not just exercise bike indoors. documented as of this encounter (statuses as of 11/01/2023) [facility] History of Past illness Narrative* Problem Noted Date Diagnosed Date Resolved Date OVERWEIGHT 05/11/2021 Last Assessment & Plan: Has made dietary changes since recent hospitalization, decreased carbs, feels better, plans to work harder on wt loss. Getting 3 wheeled bike so she can go on trails, not just exercise bike indoors. documented as of this encounter (statuses as of 11/01/2023) [facility] August 02, 2022 12:37pm Note Date/Time August 02, 2022 1 2:32pm [facility] Medical Records Department [address] [place] [address] Transfer to [facility] MR#: [id number] Acct: [id number] Name: ATTILA KIDD Rep #:[id number] : 1945 77 From: Zay Escalera DO PCP: Dr. Octavio Reza MD Status:AD M IN Certification of patient admission REQUIRED AT TIME OF ADMISSION. I CERTIFY THAT POST-HOSP[facility] SERVICES ARE REQUIRED TO BE GIVEN ON AN IN-PATIENT BASIS BECAUSE OF THE ABOVE NAMED PATIENT'S NEED FOR RETIREMENT CARE ON A CONTINUING BASIS FOR THE CONDITION(S) FOR WHICH HE/SHE WAS RECEIVING IN-PATIENT HOSPITAL SERVICES PRIOR TO HIS/HER TRANSFER TO THE [facility]. 08/02/22 1237<Electronically signed by Zay Escalera DO> [...] - Requested for PT OT eval and healthcare social worker to assist with discharge planning. To SNF Allergies/Procedures Done in Hospital Allergies pravastatin Allergy (Unknown, Verified 07/31/22 23:52) unknown rosuvastatin [From Crestor] Allergy (Unknown, Verified 07/31/22 23:52) myalgias simvastatin Allergy (Unknown, Verified 07/31/22 23:52) unknown escitalopram Allergy (Verified 07/31/22 23:52) Other hydrochlorothiazide Allergy (Verified 07/31/22 23:52) Other Wdipydi-ZRD-IfE Reductase Inhibitor [Mjrrlgc-Sdu-Csk Reductase Inhibitor] Adverse Reaction (Severe, Verified 07/31/22 [...] in before D/C Order can be placed): [facility] 08/02/221236 <Electronically signed by Zay Escalera DO> Cosigner Signature (if applicable): CC: Dr. Tawanda Herring MD; Dr. Octavio Reza MD; Dr. Daisy Gan MD ~ [facility] Work Phone: Discharge summary Author Dr. Escalera [facility] August 02, 2022 12:39pm Note Date/Time August 02, 2022 1 2:39pm [facility] Medical Records Department [address] [place] [id number] Discharge Summary 08/02/221236 MR#: [id number] Acct: [id number] Name: ATTILA KIDD Rep #:[id number] : 1945 77 From: Zay Escalera DO PCP: Dr. Octavio Reza MD Status:AD M IN Location: [facility] [id number] Providers Date of Admission: 07/31/22 Primary Care [...] - Requested for PT OT eval and healthcare social worker to assist with discharge planning. To SNF [...] 79.8 H, Lymph % (Auto) 11.1 L, Cannon % (Auto) 8.1, Eos % (Auto) 0.4, Baso % (Auto) 0.2, Absolute Neuts (auto)4.0, Absolute Lymphs (auto) 0.56 L, Nucleated RBC % 0.6 08/02/22 06:00: Sodium 137, Potassium 3.7, Chloride 101, Carbon Dioxide 26.0, Anion Gap 10, BUN 9, Creatinine 0.66, Estim Creat Clear Calc 49.24, Est GFR (MDRD) Af Amer 111, Est GFR (MDRD) Non-Af 92, BUN/Creatinine Ratio 13.5, [id number] H, Calcium 8.0 L, Phosphorus 2.4 L, Magnesium 1.7 08/02/22 06:40: POC Glucose 217 H 08/02/22 11:38: POC Glucose 286 H Microbiology: Microbiology 07/31/22 20:29 Urine, Catheterized Urine Culture - Preliminary [...] in before D/C Order can be placed): [facility] Charges/Coding Visit Charges Inpatient E&M: 20846 Disch Hosp 08/02/22 1239 <Electronically signed by Zay Escalera DO> Cosigner Signature (if applicable): CC: Dr. Zay Escalera DO; Dr. Octavio Reza MD~ Signed [facility] Work Phone: Evaluation note* Diagnosis Screening for colon cancer Special screening for malignant neoplasms, colon documented in this encounter [facility] note* Diagnosis Screening for colon cancer- Primary Special screening for malignant neoplasms, colon documented in this encounter [facility] note* Diagnosis Type I diabetes mellitus [...] neoplasms, colon documented in this encounter [facility] note* Diagnosis Chest pain, unspecified type- Primary documented in this encounter [facility] note* Diagnosis Chest pain, unspecified type documented in this encounter [facility] note* Diagnosis Pain of right upper extremity- Primary documented in this encounter [facility] note* Diagnosis Pain of upper abdomen- Primary Abdominal pain, other specified site Alternating constipation and diarrhea Other symptoms involving digestive system documented in this encounter [facility] note* Diagnosis Breast cancer screening by mammogram- Primary Dense breasts Inconclusive mammogram documented in this encounter [facility] note* Diagnosis Onset Date Resolution Status Paroxysmal SVT (supraventricular tachycardia) acute Essential hypertension chron ic Hyperlipidemia chronic [facility] Work Phone: Evaluation note* Diagnosis Palpitations- Primary Encounter for immunization Need for other specified prophylactic vaccination against single bacterial disease [facility] Diagnosis 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)- Primary 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, not stated as uncontrolled Lipomas Vitamin D deficiency Unspecified vitamin D deficiency Insomnia, unspecified type [facility]* Diagnosis 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, not stated as uncontrolled Charcot foot due to 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, not stated as uncontrolled [facility] Diagnosis Type I diabetes mellitus with [...] single bacterial disease [facility]* Diagnosis Onset Date Resolution Status Paroxysmal SVT (supraventricular tachycardia) acute Essential hypertension chron ic Hyperlipidemia chronic Hypoxia acute [facility] Work Phone: Evaluation note* Diagnosis Onset Date Resolution Status Paroxysmal SVT (supraventricular tachycardia) acute Essential hypertension chron ic Hyperlipidemia chronic Hypoxia acute Acute hypokalemia acute Acute respiratory failure with hypoxia acute Bilateral pneumonia acute Hyperglycemia due to type 2 diabetes mellitus acute 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 Essential hypertension chron ic Hyperlipidemia chronic [facility] Work Phone: Evaluation note* Diagnosis 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)- Primary 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, not stated as uncontrolled Stress at home Unspecified family circumstance [facility] Diagnosis Onset Date Resolution Status Paroxysmal SVT (supraventricular tachycardia) acute Essential hypertension chron ic Hyperlipidemia chronic Hypoxia acute Acute respiratory failure with hypoxia acute Bilateral pneumonia acute Hyperglycemia due to type 2 diabetes mellitus acute 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 Essential hypertension chron ic Hyperlipidemia chronic Acute hypokalemia resolved Bilateral pneumonia acute Hypoxia acute Acute hypokalemia resolved [facility] Work Phone: Evaluation note* Diagnosis Pneumonia due to COVID-19 virus- Primary Hypoxemia 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, not stated as uncontrolled Moderate persistent asthma without complication Unspecified asthma [facility]* Diagnosis Essential hypertension- Primary Unspecified essential hypertension Palpitations 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 note* Diagnosis Onset Date Resolution Status Hypoxia resolved Acute hypokalemia resolved Acute respiratory failure with hypoxia resolved Asthma exacerbation in COPD resolved Bilateral pneumonia resolved Acute hypokalemia resolved Bilateral pneumonia resolved Hypoxia resolved [facility] Work Phone: Evaluation note* Diagnosis Labial abscess- Primary Other abscess of vulva Bradycardia Other specified cardiac dysrhythmias documented in this encounter [facility] note* Diagnosis Onset Date Resolution Status CRAWLEY (dyspnea on exertion) ac [place] [facility] Work Phone: Evaluation note* Diagnosis Psoriasis of scalp- Primary Other psoriasis Seborrheic dermatitis Seborrheic dermatitis, unspecified Essential hypertension Unspecified essential hypertension Palpitations History of delirium Personal history of other mental disorder documented in this encounter [facility] note* Diagnosis Screening mammogram for breast cancer- Primary documented in this encounter [facility] note* Diagnosis Palpitations documented in this encounter [facility] noteNo assessment information [facility]WThe [facility] Work Phone: Evaluation note* Diagnosis Paroxysmal SVT (supraventricular tachycardia)- Primary Paroxysmal supraventricular tachycardia Palpitations documented in this encounter [facility] note* Diagnosis Severe persistent asthma without complication [facility]* Diagnosis Severe persistent asthma without complication- Primary Obesity, Class III, BMI 40-49.9 (morbid obesity) (HCC) Morbid obesity documented in this encounter [facility] note* Diagnosis Type I diabetes mellitus [...] single bacterial disease [facility] Diagnosis Polyarthralgia- Primary Pain in joint, multiple sites 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, not stated as uncontrolled Vitamin D deficiency Unspecified vitamin D deficiency Pain in finger of both hands [facility] Diagnosis Polyarthralgia- Primary Pain in joint, multiple sites Pain in finger of both hands Elevated C-reactive protein (CRP) Elevated sedimentation rate [facility]* Diagnosis Mild persistent asthma without complication- Primary Unspecified asthma Morbid obesity (HCC) Morbid obesity THAIS (obstructive sleep apnea) Obstructive sleep apnea (adult) (pediatric) [facility] Diagnosis 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, not stated as uncontrolled Charcot foot due to 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, not stated as uncontrolled [facility] Diagnosis Onset Date Resolution Status Essential hypertension chron ic Hyperlipidemia chronic Paroxysmal SVT (supraventricular tachycardia) [facility] Work Phone: Evaluation note* Diagnosis PSVT (paroxysmal supraventricular tachycardia) (HCC)- Primary Paroxysmal supraventricular tachycardia PAC (premature atrial contraction) Supraventricular premature beats Primary insomnia Persistent disorder of initiating or maintaining sleep [facility] Diagnosis Pain and swelling of right lower leg- Primary [facility] Diagnosis Pain and swelling of right lower leg [facility]* Diagnosis 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)- Primary 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, not stated as uncontrolled [facility] Diagnosis Vitamin D deficiency Unspecified vitamin D deficiency [facility] Diagnosis Diabetes mellitus type 1, controlled, without complications (HCC)- Primary Type I (juvenile type) diabetes mellitus without mention of complication, not stated as uncontrolled 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, not stated as uncontrolled [facility] Diagnosis Localized swelling, mass and lump, neck- Primary Swelling, mass, or lump in head and neck Cutaneous horn Other specified dermatoses [facility] Diagnosis 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)- Primary 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, not stated as uncontrolled [facility] Diagnosis Diabetes mellitus type 1, controlled, without complications (HCC) Type I (juvenile type) diabetes mellitus without mention of complication, not stated as uncontrolled [facility] Vitamin D deficiency- Primary Unspecified vitamin D deficiency 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, not stated as uncontrolled [facility] Diagnosis Diabetes mellitus type 1, controlled, without complications (HCC)- Primary Type I (juvenile type) diabetes mellitus without mention of complication, not stated as uncontrolled [facility] Diagnosis 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)- Primary 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, not stated as uncontrolled [facility] Diagnosis HYPERLIPIDEMIA NEC/NOS Other and [...] breast cancer- Primary documented in this encounter [facility] note* Diagnosis HYPERLIPIDEMIA NEC/NOS Other and [...] of breath documented in this encounter [facility] note* Diagnosis HYPERLIPIDEMIA NEC/NOS Other and [...] as uncontrolled documented in this encounter [facility] note* Diagnosis HYPERLIPIDEMIA NEC/NOS Other and [...] Seborrheic dermatitis, unspecified [facility] Diagnosis HYPERLIPIDEMIA NEC/NOS Other and unspecified [...] as uncontrolled documented in this encounter [facility] note* Diagnosis HYPERLIPIDEMIA NEC/NOS Other and [...] complication Unspecified asthma documented in this encounter [facility] note* Diagnosis HYPERLIPIDEMIA NEC/NOS Other and [...] (adult) (pediatric) documented in this encounter [facility] note* Diagnosis HYPERLIPIDEMIA NEC/NOS Other and [...] as uncontrolled documented in this encounter [facility] note* Diagnosis HYPERLIPIDEMIA NEC/NOS Other and [...] as uncontrolled documented in this encounter [facility] note* Diagnosis HYPERLIPIDEMIA NEC/NOS Other and [...] right upper extremity documented in this encounter [facility] note* Diagnosis HYPERLIPIDEMIA NEC/NOS Other and [...] of unspecified site [facility] Diagnosis HYPERLIPIDEMIA NEC/NOS Other and unspecified [...] of unspecified site documented in this encounter [facility] note* Diagnosis HYPERLIPIDEMIA NEC/NOS Other and [...] as uncontrolled documented in this encounter [facility] note* Diagnosis HYPERLIPIDEMIA NEC/NOS Other and [...] Other premature beats documented in this encounter [facility] note* Diagnosis HYPERLIPIDEMIA NEC/NOS Other and [...] stated as uncontrolled [facility] Diagnosis HYPERLIPIDEMIA NEC/NOS Other and unspecified [...] both lower extremities [facility] Diagnosis HYPERLIPIDEMIA NEC/NOS Other and unspecified [...] stated as uncontrolled [facility] Diagnosis HYPERLIPIDEMIA NEC/NOS Other and unspecified [...] stated as uncontrolled [facility] Diagnosis HYPERLIPIDEMIA NEC/NOS Other and unspecified [...] hematuria Acute cystitis [facility] Diagnosis HYPERLIPIDEMIA NEC/NOS Other and unspecified [...] stated as uncontrolled [facility] Diagnosis HYPERLIPIDEMIA NEC/NOS Other and unspecified [...] as uncontrolled documented in this encounter [facility] note* Diagnosis HYPERLIPIDEMIA NEC/NOS Other and [...] stated as uncontrolled [facility] Diagnosis HYPERLIPIDEMIA NEC/NOS Other and unspecified [...] stated as uncontrolled [facility] Diagnosis HYPERLIPIDEMIA NEC/NOS Other and unspecified [...] excess calories (HCC) [facility] Diagnosis HYPERLIPIDEMIA NEC/NOS Other and unspecified [...] Seborrheic dermatitis, unspecified documented in this encounter [facility] note* Diagnosis HYPERLIPIDEMIA NEC/NOS Other and [...] as uncontrolled documented in this encounter [facility] note* Diagnosis HYPERLIPIDEMIA NEC/NOS Other and [...] as uncontrolled documented in this encounter [facility] note* Diagnosis HYPERLIPIDEMIA NEC/NOS Other and [...] without complication (HCC) [facility] Diagnosis HYPERLIPIDEMIA NEC/NOS Other and unspecified [...] of foot (HCC) [facility] Diagnosis HYPERLIPIDEMIA NEC/NOS Other and unspecified [...] not stated as uncontrolled Essential hypertension, benign Medicare annual wellness visit, subsequent- Primary Routine general medical examination at a health care facility 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) Primary insomnia Persistent disorder of initiating or maintaining sleep Essential hypertension Unspecified essential hypertension Vitamin D deficiency Unspecified vitamin D deficiency Encounter for immunization Need for other specified prophylactic vaccination against single bacterial disease Class 3 severe obesity due to excess calories with body mass index (BMI) of 40.0 to 44.9 in adult, unspecified whether serious comorbidity present (HCC) [facility] Additional [facility] Discharge instructions Additional Instructions Your chest x-ray shows no sign of pneumonia and COVID/flu/RSV swab is negative. I suspect this is a different viral upper respiratory infection. Use nasal saline and thah-oqo-ythhnzq congestion medication as needed. Follow-up with your doctor. If symptoms worsen return to ER.[facility] Work Phone: Hospital Discharge instructions Additional Instructions Follow-up with endocrinology next week as scheduled.[facility] Work Phone: Hospital Discharge instructions Additional Instructions Follow-up with your doctor in outpatient setting. Return with worsening symptoms or any concerns. Your CT scan did not show anything surgical going on. Blood work was largely normal. Return with worsening symptoms or other concerns. Follow-up on urine culture with your primary care [facility] Work Phone: Hospital Discharge instructions Additional Instructions You can take smwh-rzg-wixbakg Imodium as needed. Drink plenty of fluids. [...] the small amount of blood in your stool.[facility] Work Phone: Hospital Discharge instructions Additional Instructions Left lower leg ultrasound negative for any blood clots. Bruising should heal with time. Follow-up with your doctor.[facility] Work Phone: Hospital Discharge instructions Additional Instructions Follow-up with your plant safety engineer tomorrow. Call them with a log of your blood sugars as you have been. Keep a log of your blood sugars. Return with fever, chills, nausea, vomiting, abdominal pain, new or worsening symptoms.[facility] Work Phone: Hospital Discharge instructions Additional Instructions Your exam is good today. The labs you had done in the middle of November were good also. Your blood sugar here today was 227. Take your insulin per your sliding scale when you get home.[facility] Work Phone: Hospital Discharge instructions Additional Instructions Today your tests look normal. I recommend you follow-up with your primary care doctor or spudder. If symptoms significantly change or worsen please come back to the ER.[facility] Work Phone: Reason for referral (narrative)* Outpatient Procedure (Routine) - Closed Specialty Diagnoses / Procedures Referred By Belgica jalloh Referred To Contact [facility] Diagnoses Screening for colon cancer Procedures COLONOSCOPY SCREENING COLONOSCOPY FLX DX W/COLLJ SPEC WHEN Holland Mercado MD [address] [place] [address] [facility] [address] [address] Referral ID Status Reason Start Date Expiration Date V isits Requested Visits Authorized Closed Auto-Generate d Referral 09/22/2021 09/22/2022 1 1 [facility] for referral (narrative)* Outpatient Procedure (Routine) - Closed Specialty Diagnoses / Procedures Referred By Belgica jalloh Referred To Contact [facility] [place] Diagnoses Screening for colon cancer Procedures COLONOSCOPY SCREENING COLONOSCOPY FLX DX W/COLLJ SPEC WHEN Holland Mercado MD [address] [place] [address] [facility] [place] [address] [place] [id number] Referral ID Status Reason Start Date Expiration Date V isits Requested Visits Authorized Closed Auto-Generate d Referral 09/22/2021 09/22/2022 1 1 [facility] for referral (narrative)* Diagnostic Procedure Only (Routine) - Pending Review Specialty Diagnoses / Procedures Referred By Belgica jalloh Referred To Contact [facility] Diagnoses Breast cancer screening by mammogram Dense breasts Procedures KELLY SCREENING W MINAL SCREENING DIGITAL BREAST TOMOSYNTHESIS BI SCREENING MAMMOGRAPHY BI 2-VIEW BREAST INC CAD Harjinder Lydia, CORRECTIONAL CAPTAIN.VP CUSTOMER SERVICE [address] [place] [address] [facility] [address] [place] [address] Referral ID Status Reason Start Date Expiration Date Visits Requested Visits Authorized [id number] Pending Review Auto-Generat ed Referral 01/21/2022 02/19/2023 1 1 [facility] for referral (narrative)* Diagnostic Procedure Only (Routine) - Pending Review Specialty Diagnoses / Procedures Referred By Belgica jalloh Referred To Contact [facility] Diagnoses Screening mammogram for breast cancer Procedures KELLY SCREENING W MINAL SCREENING DIGITAL BREAST TOMOSYNTHESIS BI SCREENING MAMMOGRAPHY BI 2-VIEW BREAST INC CAD Octavio Reza MD [address] [place] [address] [facility] [address] [place] [id number] Referral ID Status Reason Start Date Expiration Date Visits Requested Visits Authorized [id number] Pending Review Auto-Generat ed Referral 02/21/2023 03/22/2024 1 1 [facility] for referral (narrative)* Outpatient Procedure (Routine) - Closed Specialty Diagnoses / Procedures Referred By Belgica jalloh Ref[facility] Diagnoses Severe persistent asthma without complication Procedures NITRIC OXIDE, EXHALED NITRIC OXIDE GAS DETERMINATION Tierney Nunez PA-C [address] [place] [address] [facility] [place] [address] [place] [address] Referral ID Status Reason Start Date Expiration Date V isits Requested Visits Authorized [id number] Closed Auto-Generate d Referral 06/23/2023 07/22/2024 1 1 * Outpatient Procedure (Routine) - Closed Specialty Diagnoses / Procedures Referred By Contac t Referred To [facility] [place] Diagnoses Severe persistent asthma without complication Procedures SPIROMETRY BASELINE ONLY SPMTRY W/VC EXPIRATORY MYRON W/WO MXML VOL VNTJ Tierney Nunez PA-C [address] [place] [address] [place] [id number] Referral ID Status Reason Start Date Expiration Date V isits Requested Visits Authorized [id number] Closed Auto-Generate d Referral 06/23/2023 07/17/2023 1 1 * Outpatient Procedure (Routine) - Closed Specialty Diagnoses / Procedures Referred By Contac t Referred To [facility] [place] Diagnoses Severe persistent asthma without complication Procedures OXIMETRY WITH AMBULATION NONINVASIVE EAR/PULSE OXIMETRY MULTIPLE Tierney Huber PA-C [address] [place] [address] [address] Referral ID Status Reason Start Date Expiration Date V isits Requested Visits Authorized [id number] Closed Auto-Generate d Referral 06/23/2023 07/17/2023 1 1 [facility] for referral (narrative)* Outpatient Procedure (Routine) - Authorized Specialty Diagnoses / Procedures Referred By Contac t Referred To [facility] Diagnoses Mild persistent asthma without complication Procedures NITRIC OXIDE, EXHALED NITRIC OXIDE GAS DETERMINATION Jeannine Perkins MD [address] [place] [address] [address] Referral ID Status Reason Start Date Expiration Date Visits Requested Visits Authorized [id number] Authorized Auto-Generat ed Referral 09/22/2023 10/21/2024 1 1 [facility] for referral (narrative)* Diagnostic Procedure Only (Urgent) - Closed Specialty Diagnoses / Procedures Referred By Contac t Referred To Contact [facility] Diagnoses Pain and swelling of right lower leg Procedures US DVT LOWER RIGHT DUP-SCAN XTR VEINS UNILATERAL/LIMITED STUDY Tamika Morris MD [address] [place] [address] [place] [address] Referral ID Status Reason Start Date Expiration Date V isits Requested Visits Authorized [id number] Closed Auto-Generate d Referral 10/31/2023 11/29/2024 1 1 [facility] for referral (narrative)* Diagnostic Procedure Only (Urgent) - Closed Specialty Diagnoses / Procedures Referred By Contac t Referred To Contact [facility] Diagnoses Pain and swelling of right lower leg Procedures US DVT LOWER RIGHT DUP-SCAN XTR VEINS UNILATERAL/LIMITED STUDY Tamika Morris MD [address] [place] [address] [place] [address] Referral ID Status Reason Start Date Expiration Date V isits Requested Visits Authorized [id number] Closed Auto-Generate d Referral 10/31/2023 11/29/2024 1 1 T [facility] for referral (narrative)* Diagnostic Procedure Only (Routine) - New Request Specialty Diagnoses / Procedures Referred By Contac t Referred To Contact [facility] Diagnoses Screening mammogram for breast cancer Procedures KELLY SCREENING W MINAL SCREENING DIGITAL BREAST TOMOSYNTHESIS BI SCREENING MAMMOGRAPHY BI 2-VIEW BREAST INC Lydia López, CORRECTIONAL CAPTAIN.VP CUSTOMER SERVICE [address] [place] [address] [facility] [address] [place] [address] Referral ID Status Reason Start Date Expiration Date Visits Requested Visits Authorized [id number] New Request Auto-Generat ed Referral 03/05/2024 04/04/2025 1 1 [facility] for referral (narrative)* Outpatient Procedure (Routine) - Authorized Specialty Diagnoses / Procedures Referred By Contac t Ref[facility] Diagnoses Moderate persistent asthma without complication Procedures NITRIC OXIDE, EXHALED NITRIC OXIDE GAS DETERMINATION Jeannine Perkins MD [address] [place] [address] [facility] [place] [address] [place] [address] Referral ID Status Reason Start Date Expiration Date Visits Requested Visits Authorized [id number] Authorized Auto-Generat ed Referral 03/30/2024 04/29/2025 1 1 [facility] for referral (narrative)* Diagnostic Procedure Only (Urgent) - Closed Specialty Diagnoses / Procedures Referred By Contac t Referred To Contact [facility] Diagnoses Pain of right upper extremity Procedures XR HUMERUS 2V AP/LAT RIGHT RADEX HUMERUS MINIMUM 2 VIEWS Wanda Phillips APRN.CNP [address] [place] [address] [place] [address] Referral ID Status Reason Start Date Expiration Date V isits Requested Visits Authorized [id number] Closed Auto-Generate d Referral 12/17/2021 01/16/2023 1 1 [facility] for referral (narrative)No reason for referral information [facility] Work Phone: Reason for visit Narrative* Outpatient Procedure (Routine) - Closed Specialty Diagnoses / Procedures Referred By Contac t Referred To [facility] Diagnoses Screening for colon cancer Procedures COLONOSCOPY SCREENING COLONOSCOPY FLX DX W/COLLJ SPEC WHEN PFRMD Holland Carmichael MD [address] [place] [address] [facility] [place] [address] [place] [address] Referral ID Status Reason Start Date Expiration Date V isits Requested Visits Authorized [id number] Closed Auto-Generate d Referral 09/22/2021 09/22/2022 1 1 [facility] for visit Narrative* Diagnostic Procedure Only (Urgent) - Closed Specialty Diagnoses / Procedures Referred By Contac t Referred To Contact [facility] Diagnoses Pain and swelling of right lower leg Procedures US DVT LOWER RIGHT DUP-SCAN XTR VEINS UNILATERAL/LIMITED STUDY Tamika Morris MD [address] [place] [address] [place] [address] Referral ID Status Reason Start Date Expiration Date V isits Requested Visits Authorized [id number] Closed Auto-Generate d Referral 10/31/2023 11/29/2024 1 1 [facility] for visit Narrative* Diagnostic Procedure Only (Urgent) - Closed Specialty Diagnoses / Procedures Referred By Contac t Referred To Contact [facility] Diagnoses Pain of right upper extremity Procedures XR HUMERUS 2V AP/LAT RIGHT RADEX HUMERUS MINIMUM 2 VIEWS Wanda Phillips APRN.COMPUTER NUMERICAL CONTROL PROGRAMMER [address] [place] [address] [place] [address] Referral ID Status Reason Start Date Expiration Date V isits Requested Visits Authorized [id number] Closed Auto-Generate d Referral 12/17/2021 01/16/2023 1 1 [facility] Advance Directives No Advanced Directives Records FoundDocuments on File Type Date Recorded 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 Advance Directive(s) 09/30/2021 12:15 PM Documents on File Type Date Recorded 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 Advance Directive(s) 10/29/2021 7:15 AM Advance Directive(s) 09/30/2021 12:15 PM Documents on File Type Date Recorded 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 Advance Directive(s) 10/29/2021 7:15 AM Advance Directive(s) 09/30/2021 12:15 PM Advance Directive Response Recorded Date/ Time Name of Medical Power of Bank Teller pam snyder February 11, 2022 2:28pm Advance Directives Yes March 12, 2016 2:58pm Living Will Yes February 11, 2022 2:28pm Power of Bank Teller Yes February 11 2:28pm Advance Directive Response Recorded Date/ Time Name of Medical Power of Bank Teller Elijah Kessinge r July 10, 2022 3:19pm Advance Directives Yes March 12, 2016 1:58pm Living Will Yes July 10, 2 022 3:19pm Power of Bank Teller Yes July 10, 2022 3:19pm Advance Directive Response Recorded Date/ Time Name of Medical Power of Bank Teller Elijah Kessinge r July 10, 2022 6:37pm Name of Medical Power of Bank Teller Elijah Kessinge r July 18, 2022 2:48am Advance Directives Yes March 12, 2016 1:58pm Living Will Yes July 18 2:48am Power of Bank Teller Yes July 18, 2 023 2:48am Advance Directive Response Recorded Date/ Time Name of Medical Power of Bank Teller Elijah Kessinge r July 10, 2022 6:37pm Name of Medical Power of Bank Teller Elijah Kessinge r July 18, 2022 2:48am Name of Medical Power of Bank Teller Elijah Kessinge r July 31, 2022 7:14pm Advance Directives Yes March 12, 2016 1:58pm Living Will Yes July 31 7:14pm Power of Bank Teller Yes July 31, 2022 7:14pm Advance Directive Response Recorded Date/ Time Name of Medical Power of Bank Teller Elijah Kessinge r July 10, 2022 6:37pm Name of Medical Power of Bank Teller Elijah Kessinge r July 18, 2022 2:48am Name of Medical Power of Bank Teller Elijah Kessinge r- July 31, 2022 11:29pm Advance Directives Yes March 12, 2016 1:58pm Living Will Yes July 31 11:29pm Power of Bank Teller Yes July 31, 2022 11:29pm Advance Directive Response Recorded Date/ Time Name of Medical Power of Bank Teller Elijah Kessinge r July 10, 2022 7:37pm Name of Medical Power of Bank Teller Elijah Kessinge r July 18, 2022 3:48am Name of Medical Power of Bank Teller Elijah Kessinge r- August 01, 2022 12:29am Name of Medical Power of Bank Teller ELIJAH KESSINGE R October 01, 2022 2:19pm Advance Directives Yes March 12, 2016 2:58pm Living Will Yes October 01, 2022 2:19pm Power of Bank Teller Yes October 01 2:19pm Advance Directive Response Recorded Date/ Time Name of Medical Power of Bank Teller Elijah Kessinge r July 10, 2022 7:37pm Name of Medical Power of Bank Teller Elijah Kessinge r July 18, 2022 3:48am Name of Medical Power of Bank Teller Elijah Kessinge r- August 01, 2022 12:29am Name of Medical Power of Bank Teller EILJAH KESSINGE R October 01, 2022 2:19pm Name of Medical Power of Bank Teller ROCYE KESSINGE R October 11, 2022 4:15pm Advance Directives Yes March 12, 2016 2:58pm Living Will Yes October 11, 2022 4:15pm Power of Bank Teller Yes October 11 4:15pm Advance Directive Response Recorded Date/ Time Name of Medical Power of Bank Teller Elijah Kessinge r July 10, 2022 7:37pm Name of Medical Power of Bank Teller Elijah Kessinge r July 18, 2022 3:48am Name of Medical Power of Bank Teller Elijah Kessinge r- August 01, 2022 12:29am Name of Medical Power of Bank Teller ELIJAH KESSINGE R October 01, 2022 2:19pm Name of Medical Power of Bank Teller ROCYE KESSINGE R October 11, 2022 4:15pm Name of Medical Power of Bank Teller November 04, 2022 6:03pm Advance Directives Yes March 12, 2016 2:58pm Living Will Yes November 04, 2022 6:03pm Power of Bank Teller Yes November 04 6:03pm Advance Directive Response Recorded Date/ Time Name of Medical Power of Bank Teller ELIJAH KESSINGE R October 01, 2022 2:19pm Name of Medical Power of Bank Teller JENNA OSMAN R October 11, 2022 4:15pm Name of Medical Power of Bank Teller November 04, 2022 6:03pm Advance Directives Yes March 12, 2016 2:58pm Living Will Yes November 04, 2022 6:03pm Power of Bank Teller Yes November 04 6:03pm Advance Directive Response Recorded Date/ Time Name of Medical Power of Bank Teller November 04, 2022 6:03pm Advance Directives Yes March 12, 2016 2:58pm Living Will No February 13, 2023 6:15pm Power of Bank Teller No February 13 6:15pm Advance Directive Response Recorded Date/ Time Advance Directives Yes March 12, 2016 2:58pm Living Will No February 13, 2023 6:15pm Power of Bank Teller No February 13 6:15pm Advance Directive Response Recorded Date/ Time Name of Medical Power of Bank Teller September 16, 2023 6:19pm Advance Directives Yes March 12, 2016 1:58pm Living Will Yes September 16, 2023 6:19pm Power of Bank Teller Yes September 15 6:19pm Advance Directive Response Recorded Date/ Time Name of Medical Power of Bank Teller . September 21, 2023 1:29am Advance Directives Yes March 12, 2016 1:58pm Living Will Yes September 21, 2023 1:29am Power of Bank Teller Yes September 20 1:29am Name of Medical Power of Bank Teller September 16, 2023 6:19pm Advance Directive Response Recorded Date/ Time Name of Medical Power of Bank Teller . September 21, 2023 2:29am Name of Medical Power of Bank Teller PAM GREGORY October 01, 2023 3:17pm Advance Directives Yes March 12, 2016 2:58pm Living Will Yes October 01, 2023 3:17pm Power of Bank Teller Yes September 30 3:17pm Name of Medical Power of Bank Teller September 16, 2023 7:19pm Advance Directive Response Recorded Date/ Time Name of Medical Power of Bank Teller . September 21, 2023 2:29am Name of Medical Power of Bank Teller ELIJAH PAM KIDD October 01, 2023 3:17pm Name of Medical Power of Bank Teller September 16, 2023 7:19pm Name of Medical Power of Bank Teller recalled October 28, 2023 7:21pm Advance Directives Yes March 12, 2016 2:58pm Living Will Yes October 28, 2023 7:21pm Power of Bank Teller Yes October 27 7:21pm Advance Directive Response Recorded Date/ Time Name of Medical Power of Bank Teller . September 21, 2023 2:29am Name of Medical Power of Bank Teller ELIJAHEDITH SANDOVALDANIEL MORALEZ October 01, 2023 3:17pm Name of Medical Power of Bank Teller or son - pt unsure November 06, 2023 7:49pm Advance Directives Yes March 12, 2016 2:58pm Living Will Yes November 06, 2023 7:49pm Power of Bank Teller Yes November 05 7:49pm Name of Medical Power of Bank Teller September 16, 2023 7:19pm Name of Medical Power of Bank Teller recalled October 28, 2023 7:21pm Advance Directive Response Recorded Date/ Time Name of Medical Power of Bank Teller . September 21, 2023 2:29am Name of Medical Power of Bank Teller ELIJAH PAM KIDD October 01, 2023 3:17pm Name of Medical Power of Bank Teller or son - pt unsure November 06, 2023 7:49pm Name of Medical Power of Bank Teller September 16, 2023 7:19pm Name of Medical Power of Bank Teller recalled October 28, 2023 7:21pm Name of Medical Power of Bank Teller November 07, 2023 4:30pm Advance Directives Yes March 12, 2016 2:58pm Living Will Yes November 07, 2023 4:30pm Power of Bank Teller Yes November 06 4:30pm Advance Directive Response Recorded Date/ Time Name of Medical Power of Bank Teller . September 21, 2023 2:29am Name of Medical Power of Bank Teller ELIJAH PAM KIDD October 01, 2023 3:17pm Name of Medical Power of Bank Teller or son - pt unsure November 06, 2023 7:49pm Name of Medical Power of Bank Teller September 16, 2023 7:19pm Name of Medical Power of Bank Teller recalled October 28, 2023 7:21pm Name of Medical Power of Bank Teller November 07, 2023 4:30pm Name of Medical Power of Bank Teller elijah kidd November 28, 2023 8:08pm Advance Directives Yes March 12, 2016 2:58pm Living Will Yes November 28, 2023 8 :08pm Power of Bank Teller Yes November 28, 2023 8:08pm Documents on File Type Date Recorded 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 Advance Directive(s) 10/04/2024 2:00 PM Advance Directive Response Recorded Date/ Time Living Will Yes May 25 4:47am Power of Bank Teller Yes May 25, 2024 4:47am Name of Medical Power of Bank Teller May 25, 2024 4:47am Living Will Yes May 27 6:39pm Power of Bank Teller Yes May 27, 2024 6:39pm Name of Medical Power of Bank Teller May 27, 2024 6:39pm Living Will No June 08, 5:00pm Power of Bank Teller No June 08, 2024 5:00pm Living Will Yes July 02 10:07pm Power of Bank Teller Yes July 02, 2024 10:07pm Name of Medical Power of Bank Teller elijah osman r July 02, 2024 10:07pm Living Will Yes July 28 8:34pm Power of Bank Teller Yes July 28, 2024 8:34pm Name of Medical Power of Bank Teller July 28, 2024 8:34pm Living Will Yes September 20, 2024 7:05pm Power of Bank Teller Yes September 20 7:05pm Name of Medical Power of Bank Teller hayden September 20, 2024 7:05pm Advance Directives Yes March 12, 2016 1:58pm Advance Directive Response Recorded Date/ Time Living Will No September 21, 2024 6:25am Power of Bank Teller No September 21 6:25am Living Will Yes May 25 4:47am Power of Bank Teller Yes May 25, 2024 4:47am Name of Medical Power of Bank Teller May 25, 2024 4:47am Living Will Yes May 27 6:39pm Power of Bank Teller Yes May 27, 2024 6:39pm Name of Medical Power of Bank Teller May 27, 2024 6:39pm Living Will No June 08 5:00pm Power of Bank Teller No June 08, 2024 5:00pm Living Will Yes July 02, 024 10:07pm Power of Bank Teller Yes July 02, 2024 10:07pm Name of Medical Power of Bank Teller elijah kelly r July 02, 2024 10:07pm Living Will Yes July 28 8:34pm Power of Bank Teller Yes July 28, 2024 8:34pm Name of Medical Power of Bank Teller July 28, 2024 8:34pm Living Will Yes September 20, 2024 7:05pm Power of Bank Teller Yes September 20 7:05pm Name of Medical Power of Bank Teller hayden September 20, 2024 7:05pm Advance Directives Yes March 12, 2016 1:58pm Advance Directive Response Recorded Date/ Time Living Will No September 21, 2024 7:25am Power of Bank Teller No September 21 7:25am Living Will Yes May 27 7:39pm Power of Bank Teller Yes May 27, 2024 7:39pm Name of Medical Power of Bank Teller May 27, 2024 7:39pm Living Will No June 08 6:00pm Power of Bank Teller No June 08, 2024 6:00pm Living Will Yes July 02 024 11:07pm Power of Bank Teller Yes July 02, 2024 11:07pm Name of Medical Power of Bank Teller elijah osman r July 02, 2024 11:07pm Living Will Yes July 28 9:34pm Power of Bank Teller Yes July 28, 2024 9:34pm Name of Medical Power of Bank Teller July 28, 2024 9:34pm Living Will Yes September 20, 2024 8:05pm Power of Bank Teller Yes September 20 8:05pm Name of Medical Power of Bank Teller hayden September 20, 2024 8:05pm Living Will No September 23, 2024 9:09pm Power of Bank Teller No September 23 9:09pm Advance Directives Yes March 12, 2016 2:58pm Documents on File Type Date Recorded 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 No September 21, 2024 7:25am Living Will Yes July 02 11:07pm Do you have a Healthcare Pow er of Bank Teller? Yes July 02, 2024 11:07pm Name of Medical Power of Bank Teller elijah snyder July 02, 2024 11:07pm Living Will Yes July 28 9:34pm Do you have a Healthcare Pow er of Bank Teller? Yes July 28, 2024 9:34pm Name of Medical Power of Bank Teller July 28, 2024 9:34pm Living Will Yes September 20, 2024 8:05pm Do you have a Healthcare Pow er of Bank Teller? Yes September 20, 2024 8:05pm Name of Medical Power of Bank Teller hayden September 20, 2024 8:05pm Living Will No September 23, 2024 9:09pm Do you have a Healthcare Pow er of Bank Teller? No September 23, 2024 9:09pm Living Will No October 19, 2024 9:41am Do you have a Healthcare Pow er of Bank Teller? No October 19, 2024 9:41am Advance Directives Yes March 12, 2016 2:58pm Advance Directive Response Recorded Date/ Time Living Will No September 21, 2024 7:25am Do you have a Healthcare Pow er of Bank Teller? No September 21, 2024 7:25am Living Will Yes October 24, 2024 8:44pm Do you have a Healthcare Pow er of Bank Teller? Yes October 24, 2024 8:44pm Name of Medical Power of Bank Teller Elijah October 24, 2024 8:44pm Living Will Yes July 02 11:07pm Do you have a Healthcare Pow er of Bank Teller? Yes July 02, 2024 11:07pm Name of Medical Power of Bank Teller elijah snyder July 02, 2024 11:07pm Living Will Yes July 28 9:34pm Do you have a Healthcare Pow er of Bank Teller? Yes July 28, 2024 9:34pm Name of Medical Power of Bank Teller July 28, 2024 9:34pm Living Will Yes September 20, 2024 8:05pm Do you have a Healthcare Pow er of Bank Teller? Yes September 20, 2024 8:05pm Name of Medical Power of Bank Teller hayden September 20, 2024 8:05pm Living Will No September 23, 2024 9:09pm Do you have a Healthcare Pow er of Bank Teller? No September 23, 2024 9:09pm Living Will No October 19, 2024 9:41am Do you have a Healthcare Pow er of Bank Teller? No October 19, 2024 9:41am Advance Directives Yes March 12, 2016 2:58pm Advance Directive Response Recorded Date/ Time Living Will No September 21, 2024 7:25am Do you have a Healthcare Power of Bank Teller? No September 21, 2024 7:25am Living Will Yes October 24, 2024 8:44pm Do you have a Healthcare Power of Bank Teller? Yes October 24, 2024 8:44pm Name of Medical Power of Bank Teller Elijah October 24, 2024 8:44pm Living Will Yes November 03, 2024 6:56am Do you have a Healthcare Power of Bank Teller? Yes November 03, 2024 6:56am Name of Medical Power of Bank Teller Pt unaware November 03, 2024 6:56am Living Will Yes July 28 9:34pm Do you have a Healthcare Power of Bank Teller? Yes July 28, 2024 9:34pm Name of Medical Power of Bank Teller July 28, 2024 9:34pm Living Will Yes September 20, 2024 8:05pm Do you have a Healthcare Power of Bank Teller? Yes September 20, 2024 8:05pm Name of Medical Power of Bank Teller hayden September 20, 2024 8:05pm Living Will No September 23, 2024 9:09pm Do you have a Healthcare Power of Bank Teller? No September 23, 2024 9:09pm Living Will No October 19, 2024 9:41am Do you have a Healthcare Power of Bank Teller? No October 19, 2024 9:41am Advance Directives Yes March 12, 2016 2:58pm Advance Directive Response Recorded Date/ Time Living Will No September 21, 2024 7:25am Do you have a Healthcare Power of Bank Teller? No September 21, 2024 7:25am Living Will Yes October 24, 2024 8:44pm Do you have a Healthcare Power of Bank Teller? Yes October 24, 2024 8:44pm Name of Medical Power of Bank Teller Elijah October 24, 2024 8:44pm Living Will Yes November 03, 2024 6:56am Do you have a Healthcare Power of Bank Teller? Yes November 03, 2024 6:56am Name of Medical Power of Bank Teller Pt unaware November 03, 2024 6:56am Do you have a Healthcare Power of Bank Teller? Yes November 29, 2024 9:20pm Name of Medical Power of Bank Teller November 29, 2024 9:20pm Living Will Yes September 20, 2024 8:05pm Do you have a Healthcare Power of Bank Teller? Yes September 20, 2024 8:05pm Name of Medical Power of Bank Teller hayden September 20, 2024 8:05pm Living Will No September 23, 2024 9:09pm Do you have a Healthcare Power of Bank Teller? No September 23, 2024 9:09pm Living Will No October 19, 2024 9:41am Do you have a Healthcare Power of Bank Teller? No October 19, 2024 9:41am Advance Directives Yes March 12, 2016 2:58pm Advance Directive Response Recorded Date/ Time Living Will No September 21, 2024 7:25am Do you have a Healthcare Power of Bank Teller? No September 21, 2024 7:25am Living Will Yes October 24, 2024 8:44pm Do you have a Healthcare Power of Bank Teller? Yes October 24, 2024 8:44pm Name of Medical Power of Bank Teller Elijah October 24, 2024 8:44pm Living Will Yes November 03, 2024 6:56am Do you have a Healthcare Power of Bank Teller? Yes November 03, 2024 6:56am Name of Medical Power of Bank Teller Pt unaware November 03, 2024 6:56am Do you have a Healthcare Power of Bank Teller? Yes November 29, 2024 9:20pm Name of Medical Power of Bank Teller November 29, 2024 9:20pm Do you have a Healthcare Power of Bank Teller? No December 19, 2024 4:57pm Living Will Yes September 20, 2024 8:05pm Do you have a Healthcare Power of Bank Teller? Yes September 20, 2024 8:05pm Name of Medical Power of Bank Teller hayden September 20, 2024 8:05pm Living Will No September 23, 2024 9:09pm Do you have a Healthcare Power of Bank Teller? No September 23, 2024 9:09pm Living Will No October 19, 2024 9:41am Do you have a Healthcare Power of Bank Teller? No October 19, 2024 9:41am Advance Directives Yes March 12, 2016 2:58pm Advance Directive Response Recorded Date/ Time Living Will No September 21, 2024 7:25am Do you have a Healthcare Power of Bank Teller? No September 21, 2024 7:25am Living Will Yes October 24, 2024 8:44pm Do you have a Healthcare Power of Bank Teller? Yes October 24, 2024 8:44pm Name of Medical Power of Bank Teller Elijah October 24, 2024 8:44pm Living Will Yes November 03, 2024 6:56am Do you have a Healthcare Power of Bank Teller? Yes November 03, 2024 6:56am Name of Medical Power of Bank Teller Pt unaware November 03, 2024 6:56am Do you have a Healthcare Power of Bank Teller? Yes November 29, 2024 9:20pm Name of Medical Power of Bank Teller November 29, 2024 9:20pm Do you have a Healthcare Power of Bank Teller? No December 19, 2024 4:57pm Do you have a Healthcare Power of Bank Teller? Yes January 04, 2025 8:00pm Living Will Yes September 20, 2024 8:05pm Do you have a Healthcare Power of Bank Teller? Yes September 20, 2024 8:05pm Name of Medical Power of Bank Teller hayden September 20, 2024 8:05pm Living Will No September 23, 2024 9:09pm Do you have a Healthcare Power of Bank Teller? No September 23, 2024 9:09pm Living Will No October 19, 2024 9:41am Do you have a Healthcare Power of Bank Teller? No October 19, 2024 9:41am Advance Directives [...] infusion 30 mL/hr, INTRAVENOUS, CONTINUOUS, Starting on Odttie 10/29/21 at 0730, Until Dottie 10/29/21 at [...] Referral Specialty Diagnoses / Procedures Referred By Contrick t Referred To Contact General Surgery Diagnoses Colon cancer screening Procedures CONSULT TO GENERAL SURGERY OFFICE/OUTPATIENT [facility] 60-74 MINUTES Octavio Reza MD [address] [place] [address] Holland Carmichael MD [address] [place] [address] Referral ID Status Reason Start Date Expiration Date Visits Requested Visits Authorized [id number] Pending Review PCP Requested Referral 09/11/2021 09/11/2022 1 1 Specialty Diagnoses / Procedures Referred By Contac t Referred To Contact Orthopedics Diagnoses Pain of right upper extremity Procedures CONSULT PANEL TO ORTHOPAEDICS OFFICE/OUTPATIENT [facility] 60-74 MINUTES Wanda Phillips APRN.COMPUTER NUMERICAL CONTROL PROGRAMMER [address] [place] [address] Referral ID Status Reason Start Date Expiration Date Visits Requested Visits Authorized [id number] Pending Review PCP Requested Referral 12/17/2021 12/17/2022 1 1 Specialty Diagnoses / Procedures Referred By Contac t Referred To Contact XR IMAGING Diagnoses Pain of right upper extremity Procedures XR HUMERUS 2V AP/LAT RIGHT RADEX HUMERUS MINIMUM 2 VIEWS Wanda Phillips APRN.COMPUTER NUMERICAL CONTROL PROGRAMMER [address] [place] [address] Xr Imaging Referral ID Status Reason Start Date Expiration Date V isits Requested Visits Authorized [id number] Closed Auto-Generate d Referral 12/17/2021 01/16/2023 1 1 Referral ID Status Reason Start Date Expiration Date V isits Requested Visits Authorized [id number] Closed Auto-Generate d Referral 12/17/2021 01/16/2023 1 1 Specialty Diagnoses / Procedures Referred By Contac t Referred To Contact Octavio Reza MD [address] [place] [id number] Referral ID Status Reason Start Date Expiration Date Visits Re quested Visits Authorized [id number] Closed 1 1 Referral ID Status Reason Start Date Expiration Date Visits Re quested Visits Authorized [id number] Closed 1 1 Specialty Diagnoses / Procedures Referred By Contac t Referred To Contact Rheumatology Diagnoses Polyarthralgia Pain in finger of both hands Elevated C-reactive protein (CRP) Elevated sedimentation rate Procedures CONSULT TO RHEUM/IMMUN DISEASE OFFICE/OUTPATIENT [facility] 60 MINUTES Lydia Grande APRN.VP CUSTOMER SERVICE [address] [place] [address] Referral ID Status Reason Start Date Expiration Date Visits Requested Visits Authorized [id number] Authorized PCP Requested Referral 09/05/2023 09/04/2024 1 1 Specialty Diagnoses / Procedures Referred By Contac t Referred To Contact Endocrinology Diagnoses 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) Procedures CONSULT TO ENDOCRINOLOGY OFFICE/OUTPATIENT [facility] 60 MINUTES Lydia Grande, CORRECTIONAL CAPTAIN.VP CUSTOMER SERVICE [address] [place] [address] Referral ID Status Reason Start Date Expiration Date Visits Requested Visits Authorized [id number] Authorized PCP Requested Referral 11/08/2023 11/07/2024 1 1 Specialty Diagnoses / Procedures Referred By Contac t Referred To Contact Diagnoses Diabetes mellitus type 1, controlled, without complications (HCC) Procedures CONSULT TO DIABETES EDUCATION DSME/MNT MEDICAL NUTRITION ASSMT&IVNTJ INDIV EACH 15 MD MEDICAL NUTRITION ASSMT&IVNTJ INDIV EACH 15 MD MEDICAL NUTRITION ASSMT&IVNTJ INDIV EACH 15 MD MEDICAL NUTRITION ASSMT&IVNTJ INDIV EACH 15 MD Renetta Mcgee CORRECTIONAL CAPTAIN.COMPUTER NUMERICAL CONTROL PROGRAMMER [address] [place] [address] Referral ID Status Reason Start Date Expiration Date Visits Requested Visits Authorized [id number] Authorized PCP Requested Referral 12/07/2023 12/06/2024 1 1 Specialty Diagnoses / Procedures Referred By Contac t Referred To Contact Diagnoses Diabetes mellitus type 1, controlled, without complications (HCC) Procedures ENDOCRINOLOGY DIETITIAN VISIT (MNT) MEDICAL NUTRITION ASSMT&IVNTJ INDIV EACH 15 MD MEDICAL NUTRITION ASSMT&IVNTJ INDIV EACH 15 MD MEDICAL NUTRITION ASSMT&IVNTJ INDIV EACH 15 MD MEDICAL NUTRITION ASSMT&IVNTJ INDIV EACH 15 MD Renetta Mcgee, CORRECTIONAL CAPTAIN.COMPUTER NUMERICAL CONTROL PROGRAMMER [address] [place] [id number] Referral ID Status Reason Start Date Expiration Date Visits Requested Visits Authorized [id number] Authorized PCP Requested Referral 02/15/2024 02/14/2025 1 1 Specialty Diagnoses / Procedures Referred By Contac t Referred To Contact Diagnoses THAIS (obstructive sleep apnea) Procedures CONSULT TO SLEEP MEDICINE - ADULT OFFICE/OUTPATIENT [facility] 60 MINUTES Rehana Osorio, CORRECTIONAL CAPTAIN.COMPUTER NUMERICAL CONTROL PROGRAMMER [address] [place] [address] Referral ID Status Reason Start Date Expiration Date Visits Requested Visits Authorized [id number] Authorized PCP Requested Referral 02/13/2024 02/12/2025 1 1 Specialty Diagnoses / Procedures Referred By Contac t Referred To Contact Diagnoses 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) Davon Wolfe APRN.COMPUTER NUMERICAL CONTROL PROGRAMMER [address] [place] [address] Referral ID Status Reason Start Date Expiration Date Visits Re quested Visits Authorized [id number] Closed 1 1 Specialty Diagnoses / Procedures Referred By Contac t Referred To Contact Diagnoses 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) Renetta Mcgee, CORRECTIONAL CAPTAIN.COMPUTER NUMERICAL CONTROL PROGRAMMER [address] [place] [address] Referral ID Status Reason Start Date Expiration Date Visits Re quested Visits Authorized [id number] Closed 1 1 Specialty Diagnoses / Procedures Referred By Contac t Referred To Contact Diagnoses Severe persistent asthma without complication Octavio Reza MD [address] [place] [address] Referral ID Status Reason Start Date Expiration Date Visits Re quested Visits Authorized [id number] Closed 1 1 Chief Complaint and Reason [...] Complaint CHEST PAIN PALPITATIONS CHEST PAIN S/P [facility] ED 11-04-22 CHEST PAIN Reason for Visit CRAWLEY (dyspnea on exer tion) Chief Complaint CHEST PAIN S/P [facility] ED 11-04-22 CHEST PAIN REACTION Reason for Visit CRAWLEY (dyspnea on exer tion) Chief Complaint CHEST PAIN REACTION SCREENING Chief Complaint palpitations palpitations 48 HOUR HALTER MONITER Chief Complaint palpitations palpitations 48 HOUR HALTER MONITER palpitations Chief Complaint palpitations 48 HOUR HALTER MONITER PALPS, DYSRHYTHMIA palpitations S/P [facility] 03/06 COUGH Reason for Visit Essential hypertensi on Hyperlipidemia Paroxysmal SVT (supraventricular tachycardia) Chief Complaint palpitations 48 HOUR HALTER MONITER PALPS, DYSRHYTHMIA palpitations S/P [facility] 03/06 COUGH HYPERGLYCEMIA Reason for Visit Essential hypertensi on Hyperlipidemia Paroxysmal SVT (supraventricular tachycardia) Chief Complaint palpitations 48 HOUR HALTER MONITER PALPS, DYSRHYTHMIA palpitations S/P [facility] 03/06 COUGH HYPERGLYCEMIA PALPITATIONS Reason for Visit Essential hypertensi on Hyperlipidemia Paroxysmal SVT (supraventricular tachycardia) Chief Complaint palpitations 48 HOUR HALTER MONITER PALPS, DYSRHYTHMIA palpitations S/P [facility] 03/06 COUGH HYPERGLYCEMIA PALPITATIONS blood sugar issues Reason for Visit Essential hypertensi on Hyperlipidemia Paroxysmal SVT (supraventricular tachycardia) Chief Complaint palpitations 48 HOUR HALTER MONITER PALPS, DYSRHYTHMIA palpitations S/P [facility] 03/06 COUGH HYPERGLYCEMIA PALPITATIONS blood sugar issues [...] m hyperglycemia December 19, 2024 3:47p m Chief Complaint Admit Date GEN. ILLNESS September [...] m hyperglycemia December 19, 2024 3:47p m cp January 04, 2025 7:16 pm Chief Complaint Admit Date GEN. ILLNESS September [...] m hyperglycemia December 19, 2024 3:47p m cp January 04, 2025 7:16 pm S/P 6/20 CP/SOB/Dizziness January 14 9:37am Reason for Visit Admit Date Abnormal stress test November 15, 2024 8:05a m THAIS (obstructive sleep apnea) November 15 025 8:05am Essential hypertension November 15, 2024 8:0 5am Paroxysmal SVT (supraventricular tachyca rdia) November 15, 2024 8:05am Abnormal stress test January 14, 2025 9:3 7am THAIS (obstructive sleep apnea) January 14, 2025 9:37am Essential hypertension January 14, 2025 9 :37am Paroxysmal SVT (supraventricular tachyca rdia) January 14, 2025 9:37am Family History No Family History Records Found Relationship Condition Age at Onset Recorded Date/T [...] or prosecute any alcohol or drug abuse patient.[facility] the event this information is protected by the Federal Confidentiality of Alcohol and Drug Abuse Patient Records regulations: The Federal rules restrict any use of the information to criminally investigate or prosecute any alcohol or drug abuse patient.[facility] Center[facility] the event this information is protected by the Federal Confidentiality of Alcohol and Drug Abuse Patient Records regulations: The Federal rules restrict any use of the information to criminally investigate or prosecute any alcohol or drug abuse patient.[facility] CenterIn the event this information is protected by the Federal Confidentiality of Alcohol and Drug Abuse Patient Records regulations: The Federal rules restrict any use of the information to criminally investigate or prosecute any alcohol or drug abuse patient.[facility] CenterIn the event this information is protected by the Federal Confidentiality of Alcohol and Drug Abuse Patient Records regulations: The Federal rules restrict any use of the information to criminally investigate or prosecute any alcohol or drug abuse patient.[facility] CenterIn the event this information is protected by the Federal Confidentiality of Alcohol and Drug Abuse Patient Records regulations: The Federal rules restrict any use of the information to criminally investigate or prosecute any alcohol or drug abuse patient.[facility] CenterIn the event this information is protected by the Federal Confidentiality of Alcohol and Drug Abuse Patient Records regulations: The Federal rules restrict any use of the information to criminally investigate or prosecute any alcohol or drug abuse patient.[facility] CenterIn the event this information is protected by the Federal Confidentiality of Alcohol and Drug Abuse Patient Records regulations: The Federal rules restrict any use of the information to criminally investigate or prosecute any alcohol or drug abuse patient.[facility] CenterIn the event this information is protected by the Federal Confidentiality of Alcohol and Drug Abuse Patient Records regulations: The Federal rules restrict any use of the information to criminally investigate or prosecute any alcohol or drug abuse patient.[facility] CenterIn the event this information is protected by the Federal Confidentiality of Alcohol and Drug Abuse Patient Records regulations: The Federal rules restrict any use of the information to criminally investigate or prosecute any alcohol or drug abuse patient.[facility] CenterIn the event this information is protected by the Federal Confidentiality of Alcohol and Drug Abuse Patient Records regulations: The Federal rules restrict any use of the information to criminally investigate or prosecute any alcohol or drug abuse patient.[facility] CenterIn the event this information is protected by the Federal Confidentiality of Alcohol and Drug Abuse Patient Records regulations: The Federal rules restrict any use of the information to criminally investigate or prosecute any alcohol or drug abuse patient.[facility] CenterIn the event this information is protected by the Federal Confidentiality of Alcohol and Drug Abuse Patient Records regulations: The Federal rules restrict any use of the information to criminally investigate or prosecute any alcohol or drug abuse patient.[facility] CenterIn the event this information is protected by the Federal Confidentiality of Alcohol and Drug Abuse Patient Records regulations: The Federal rules restrict any use of the information to criminally investigate or prosecute any alcohol or drug abuse patient.[facility] CenterIn the event this information is protected by the Federal Confidentiality of Alcohol and Drug Abuse Patient Records regulations: The Federal rules restrict any use of the information to criminally investigate or prosecute any alcohol or drug abuse patient.[facility] CenterIn the event this information is protected by the Federal Confidentiality of Alcohol and Drug Abuse Patient Records regulations: The Federal rules restrict any use of the information to criminally investigate or prosecute any alcohol or drug abuse patient.[facility] CenterIn the event this information is protected by the Federal Confidentiality of Alcohol and Drug Abuse Patient Records regulations: The Federal rules restrict any use of the information to criminally investigate or prosecute any alcohol or drug abuse patient.[facility] CenterIn the event this information is protected by the Federal Confidentiality of Alcohol and Drug Abuse Patient Records regulations: The Federal rules restrict any use of the information to criminally investigate or prosecute any alcohol or drug abuse patient.[facility] CenterIn the event this information is protected by the Federal Confidentiality of Alcohol and Drug Abuse Patient Records regulations: The Federal rules restrict any use of the information to criminally investigate or prosecute any alcohol or drug abuse patient.[facility] CenterIn the event this information is protected by the Federal Confidentiality of Alcohol and Drug Abuse Patient Records regulations: The Federal rules restrict any use of the information to criminally investigate or prosecute any alcohol or drug abuse patient.[facility] CenterIn the event this information is protected by the Federal Confidentiality of Alcohol and Drug Abuse Patient Records regulations: The Federal rules restrict any use of the information to criminally investigate or prosecute any alcohol or drug abuse patient.[facility] CenterIn the event this information is protected by the Federal Confidentiality of Alcohol and Drug Abuse Patient Records regulations: The Federal rules restrict any use of the information to criminally investigate or prosecute any alcohol or drug abuse patient.[facility] CenterIn the event this information is protected by the Federal Confidentiality of Alcohol and Drug Abuse Patient Records regulations: The Federal rules restrict any use of the information to criminally investigate or prosecute any alcohol or drug abuse patient.[facility] CenterIn the event this information is protected by the Federal Confidentiality of Alcohol and Drug Abuse Patient Records regulations: The Federal rules restrict any use of the information to criminally investigate or prosecute any alcohol or drug abuse patient.[facility] CenterIn the event this information is protected by the Federal Confidentiality of Alcohol and Drug Abuse Patient Records regulations: The Federal rules restrict any use of the information to criminally investigate or prosecute any alcohol or drug abuse patient.[facility] CenterIn the event this information is protected by the Federal Confidentiality of Alcohol and Drug Abuse Patient Records regulations: The Federal rules restrict any use of the information to criminally investigate or prosecute any alcohol or drug abuse patient.[facility] CenterIn the event this information is protected by the Federal Confidentiality of Alcohol and Drug Abuse Patient Records regulations: The Federal rules restrict any use of the information to criminally investigate or prosecute any alcohol or drug abuse patient.[facility] CenterIn the event this information is protected by the Federal Confidentiality of Alcohol and Drug Abuse Patient Records regulations: The Federal rules restrict any use of the information to criminally investigate or prosecute any alcohol or drug abuse patient.[facility] CenterIn the event this information is protected by the Federal Confidentiality of Alcohol and Drug Abuse Patient Records regulations: The Federal rules restrict any use of the information to criminally investigate or prosecute any alcohol or drug abuse patient.[facility] CenterIn the event this information is protected by the Federal Confidentiality of Alcohol and Drug Abuse Patient Records regulations: The Federal rules restrict any use of the information to criminally investigate or prosecute any alcohol or drug abuse patient.[facility] CenterIn the event this information is protected by the Federal Confidentiality of Alcohol and Drug Abuse Patient Records regulations: The Federal rules restrict any use of the information to criminally investigate or prosecute any alcohol or drug abuse patient.[facility] CenterIn the event this information is protected by the Federal Confidentiality of Alcohol and Drug Abuse Patient Records regulations: The Federal rules restrict any use of the information to criminally investigate or prosecute any alcohol or drug abuse patient.[facility] CenterIn the event this information is protected by the Federal Confidentiality of Alcohol and Drug Abuse Patient Records regulations: The Federal rules restrict any use of the information to criminally investigate or prosecute any alcohol or drug abuse patient.[facility] CenterIn the event this information is protected by the Federal Confidentiality of Alcohol and Drug Abuse Patient Records regulations: The Federal rules restrict any use of the information to criminally investigate or prosecute any alcohol or drug abuse patient.[facility] CenterIn the event this information is protected by the Federal Confidentiality of Alcohol and Drug Abuse Patient Records regulations: The Federal rules restrict any use of the information to criminally investigate or prosecute any alcohol or drug abuse patient.[facility] CenterIn the event this information is protected by the Federal Confidentiality of Alcohol and Drug Abuse Patient Records regulations: The Federal rules restrict any use of the information to criminally investigate or prosecute any alcohol or drug abuse patient.[facility] CenterIn the event this information is protected by the Federal Confidentiality of Alcohol and Drug Abuse Patient Records regulations: The Federal rules restrict any use of the information to criminally investigate or prosecute any alcohol or drug abuse patient.[facility] CenterIn the event this information is protected by the Federal Confidentiality of Alcohol and Drug Abuse Patient Records regulations: The Federal rules restrict any use of the information to criminally investigate or prosecute any alcohol or drug abuse patient.[facility] CenterIn the event this information is protected by the Federal Confidentiality of Alcohol and Drug Abuse Patient Records regulations: The Federal rules restrict any use of the information to criminally investigate or prosecute any alcohol or drug abuse patient.[facility] CenterIn the event this information is protected by the Federal Confidentiality of Alcohol and Drug Abuse Patient Records regulations: The Federal rules restrict any use of the information to criminally investigate or prosecute any alcohol or drug abuse patient.[facility] CenterIn the event this information is protected by the Federal Confidentiality of Alcohol and Drug Abuse Patient Records regulations: The Federal rules restrict any use of the information to criminally investigate or prosecute any alcohol or drug abuse patient.[facility] CenterIn the event this information is protected by the Federal Confidentiality of Alcohol and Drug Abuse Patient Records regulations: The Federal rules restrict any use of the information to criminally investigate or prosecute any alcohol or drug abuse patient.[facility] CenterIn the event this information is protected by the Federal Confidentiality of Alcohol and Drug Abuse Patient Records regulations: The Federal rules restrict any use of the information to criminally investigate or prosecute any alcohol or drug abuse patient.[facility] CenterIn the event this information is protected by the Federal Confidentiality of Alcohol and Drug Abuse Patient Records regulations: The Federal rules restrict any use of the information to criminally investigate or prosecute any alcohol or drug abuse patient.[facility] CenterIn the event this information is protected by the Federal Confidentiality of Alcohol and Drug Abuse Patient Records regulations: The Federal rules restrict any use of the information to criminally investigate or prosecute any alcohol or drug abuse patient.[facility] CenterIn the event this information is protected by the Federal Confidentiality of Alcohol and Drug Abuse Patient Records regulations: The Federal rules restrict any use of the information to criminally investigate or prosecute any alcohol or drug abuse patient.[facility] CenterIn the event this information is protected by the Federal Confidentiality of Alcohol and Drug Abuse Patient Records regulations: The Federal rules restrict any use of the information to criminally investigate or prosecute any alcohol or drug abuse patient.[facility] CenterIn the event this information is protected by the Federal Confidentiality of Alcohol and Drug Abuse Patient Records regulations: The Federal rules restrict any use of the information to criminally investigate or prosecute any alcohol or drug abuse patient.[facility] CenterIn the event this information is protected by the Federal Confidentiality of Alcohol and Drug Abuse Patient Records regulations: The Federal rules restrict any use of the information to criminally investigate or prosecute any alcohol or drug abuse patient.[facility] CenterIn the event this information is protected by the Federal Confidentiality of Alcohol and Drug Abuse Patient Records regulations: The Federal rules restrict any use of the information to criminally investigate or prosecute any alcohol or drug abuse patient.[facility] CenterIn the event this information is protected by the Federal Confidentiality of Alcohol and Drug Abuse Patient Records regulations: The Federal rules restrict any use of the information to criminally investigate or prosecute any alcohol or drug abuse patient.[facility] CenterIn the event this information is protected by the Federal Confidentiality of Alcohol and Drug Abuse Patient Records regulations: The Federal rules restrict any use of the information to criminally investigate or prosecute any alcohol or drug abuse patient.[facility] CenterIn the event this information is protected by the Federal Confidentiality of Alcohol and Drug Abuse Patient Records regulations: The Federal rules restrict any use of the information to criminally investigate or prosecute any alcohol or drug abuse patient.[facility] CenterIn the event this information is protected by the Federal Confidentiality of Alcohol and Drug Abuse Patient Records regulations: The Federal rules restrict any use of the information to criminally investigate or prosecute any alcohol or drug abuse patient.[facility] CenterIn the event this information is protected by the Federal Confidentiality of Alcohol and Drug Abuse Patient Records regulations: The Federal rules restrict any use of the information to criminally investigate or prosecute any alcohol or drug abuse patient.[facility] CenterIn the event this information is protected by the Federal Confidentiality of Alcohol and Drug Abuse Patient Records regulations: The Federal rules restrict any use of the information to criminally investigate or prosecute any alcohol or drug abuse patient.[facility] CenterIn the event this information is protected by the Federal Confidentiality of Alcohol and Drug Abuse Patient Records regulations: The Federal rules restrict any use of the information to criminally investigate or prosecute any alcohol or drug abuse patient.[facility] CenterIn the event this information is protected by the Federal Confidentiality of Alcohol and Drug Abuse Patient Records regulations: The Federal rules restrict any use of the information to criminally investigate or prosecute any alcohol or drug abuse patient.[facility] CenterIn the event this information is protected by the Federal Confidentiality of Alcohol and Drug Abuse Patient Records regulations: The Federal rules restrict any use of the information to criminally investigate or prosecute any alcohol or drug abuse patient.[facility] CenterIn the event this information is protected by the Federal Confidentiality of Alcohol and Drug Abuse Patient Records regulations: The Federal rules restrict any use of the information to criminally investigate or prosecute any alcohol or drug abuse patient.[facility] CenterIn the event this information is protected by the Federal Confidentiality of Alcohol and Drug Abuse Patient Records regulations: The Federal rules restrict any use of the information to criminally investigate or prosecute any alcohol or drug abuse patient.[facility] CenterIn the event this information is protected by the Federal Confidentiality of Alcohol and Drug Abuse Patient Records regulations: The Federal rules restrict any use of the information to criminally investigate or prosecute any alcohol or drug abuse patient.[facility] CenterIn the event this information is protected by the Federal Confidentiality of Alcohol and Drug Abuse Patient Records regulations: The Federal rules restrict any use of the information to criminally investigate or prosecute any alcohol or drug abuse patient.[facility] CenterIn the event this information is protected by the Federal Confidentiality of Alcohol and Drug Abuse Patient Records regulations: The Federal rules restrict any use of the information to criminally investigate or prosecute any alcohol or drug abuse patient.[facility] CenterIn the event this information is protected by the Federal Confidentiality of Alcohol and Drug Abuse Patient Records regulations: The Federal rules restrict any use of the information to criminally investigate or prosecute any alcohol or drug abuse patient.[facility] CenterIn the event this information is protected by the Federal Confidentiality of Alcohol and Drug Abuse Patient Records regulations: The Federal rules restrict any use of the information to criminally investigate or prosecute any alcohol or drug abuse patient.[facility] CenterIn the event this information is protected by the Federal Confidentiality of Alcohol and Drug Abuse Patient Records regulations: The Federal rules restrict any use of the information to criminally investigate or prosecute any alcohol or drug abuse patient.[facility] CenterIn the event this information is protected by the Federal Confidentiality of Alcohol and Drug Abuse Patient Records regulations: The Federal rules restrict any use of the information to criminally investigate or prosecute any alcohol or drug abuse patient.[facility] CenterIn the event this information is protected by the Federal Confidentiality of Alcohol and Drug Abuse Patient Records regulations: The Federal rules restrict any use of the information to criminally investigate or prosecute any alcohol or drug abuse patient.[facility] CenterIn the event this information is protected by the Federal Confidentiality of Alcohol and Drug Abuse Patient Records regulations: The Federal rules restrict any use of the information to criminally investigate or prosecute any alcohol or drug abuse patient.[facility] CenterIn the event this information is protected by the Federal Confidentiality of Alcohol and Drug Abuse Patient Records regulations: The Federal rules restrict any use of the information to criminally investigate or prosecute any alcohol or drug abuse patient.[facility] CenterIn the event this information is protected by the Federal Confidentiality of Alcohol and Drug Abuse Patient Records regulations: The Federal rules restrict any use of the information to criminally investigate or prosecute any alcohol or drug abuse patient.[facility] CenterIn the event this information is protected by the Federal Confidentiality of Alcohol and Drug Abuse Patient Records regulations: The Federal rules restrict any use of the information to criminally investigate or prosecute any alcohol or drug abuse patient.[facility] CenterIn the event this information is protected by the Federal Confidentiality of Alcohol and Drug Abuse Patient Records regulations: The Federal rules restrict any use of the information to criminally investigate or prosecute any alcohol or drug abuse patient.[facility] CenterIn the event this information is protected by the Federal Confidentiality of Alcohol and Drug Abuse Patient Records regulations: The Federal rules restrict any use of the information to criminally investigate or prosecute any alcohol or drug abuse patient.[facility] CenterIn the event this information is protected by the Federal Confidentiality of Alcohol and Drug Abuse Patient Records regulations: The Federal rules restrict any use of the information to criminally investigate or prosecute any alcohol or drug abuse patient.[facility] CenterIn the event this information is protected by the Federal Confidentiality of Alcohol and Drug Abuse Patient Records regulations: The Federal rules restrict any use of the information to criminally investigate or prosecute any alcohol or drug abuse patient.[facility] CenterIn the event this information is protected by the Federal Confidentiality of Alcohol and Drug Abuse Patient Records regulations: The Federal rules restrict any use of the information to criminally investigate or prosecute any alcohol or drug abuse patient.[facility] CenterIn the event this information is protected by the Federal Confidentiality of Alcohol and Drug Abuse Patient Records regulations: The Federal rules restrict any use of the information to criminally investigate or prosecute any alcohol or drug abuse patient.[facility] CenterIn the event this information is protected by the Federal Confidentiality of Alcohol and Drug Abuse Patient Records regulations: The Federal rules restrict any use of the information to criminally investigate or prosecute any alcohol or drug abuse patient.[facility] CenterIn the event this information is protected by the Federal Confidentiality of Alcohol and Drug Abuse Patient Records regulations: The Federal rules restrict any use of the information to criminally investigate or prosecute any alcohol or drug abuse patient.[facility] CenterIn the event this information is protected by the Federal Confidentiality of Alcohol and Drug Abuse Patient Records regulations: The Federal rules restrict any use of the information to criminally investigate or prosecute any alcohol or drug abuse patient.[facility] CenterIn the event this information is protected by the Federal Confidentiality of Alcohol and Drug Abuse Patient Records regulations: The Federal rules restrict any use of the information to criminally investigate or prosecute any alcohol or drug abuse patient.[facility] CenterIn the event this information is protected by the Federal Confidentiality of Alcohol and Drug Abuse Patient Records regulations: The Federal rules restrict any use of the information to criminally investigate or prosecute any alcohol or drug abuse patient.[facility] CenterIn the event this information is protected by the Federal Confidentiality of Alcohol and Drug Abuse Patient Records regulations: The Federal rules restrict any use of the information to criminally investigate or prosecute any alcohol or drug abuse patient.[facility] CenterIn the event this information is protected by the Federal Confidentiality of Alcohol and Drug Abuse Patient Records regulations: The Federal rules restrict any use of the information to criminally investigate or prosecute any alcohol or drug abuse patient.[facility]In the event this information is protected by the Federal Confidentiality of Alcohol and Drug Abuse Patient Records regulations: The Federal rules restrict any use of the information to criminally investigate or prosecute any alcohol or drug abuse patient.[facility]In the event this information is protected by the Federal Confidentiality of Alcohol and Drug Abuse Patient Records regulations: The Federal rules restrict any use of the information to criminally investigate or prosecute any alcohol or drug abuse patient.[facility]In the event this information is protected by the Federal Confidentiality of Alcohol and Drug Abuse Patient Records regulations: The Federal rules restrict any use of the information to criminally investigate or prosecute any alcohol or drug abuse patient.[facility]In the event this information is protected by the Federal Confidentiality of Alcohol and Drug Abuse Patient Records regulations: The Federal rules restrict any use of the information to criminally investigate or prosecute any alcohol or drug abuse patient.[facility]In the event this information is protected by the Federal Confidentiality of Alcohol and Drug Abuse Patient Records regulations: The Federal rules restrict any use of the information to criminally investigate or prosecute any alcohol or drug abuse patient.[facility]In the event this information is protected by the Federal Confidentiality of Alcohol and Drug Abuse Patient Records regulations: The Federal rules restrict any use of the information to criminally investigate or prosecute any alcohol or drug abuse patient.[facility] CenterIn the event this information is protected by the Federal Confidentiality of Alcohol and Drug Abuse Patient Records regulations: The Federal rules restrict any use of the information to criminally investigate or prosecute any alcohol or drug abuse patient.[facility] CenterIn the event this information is protected by the Federal Confidentiality of Alcohol and Drug Abuse Patient Records regulations: The Federal rules restrict any use of the information to criminally investigate or prosecute any alcohol or drug abuse patient.[facility] CenterIn the event this information is protected by the Federal Confidentiality of Alcohol and Drug Abuse Patient Records regulations: The Federal rules restrict any use of the information to criminally investigate or prosecute any alcohol or drug abuse patient.[facility] CenterIn the event this information is protected by the Federal Confidentiality of Alcohol and Drug Abuse Patient Records regulations: The Federal rules restrict any use of the information to criminally investigate or prosecute any alcohol or drug abuse patient.[facility]In the event this information is protected by the Federal Confidentiality of Alcohol and Drug Abuse Patient Records regulations: The Federal rules restrict any use of the information to criminally investigate or prosecute any alcohol or drug abuse patient.[facility]In the event this information is protected by the Federal Confidentiality of Alcohol and Drug Abuse Patient Records regulations: The Federal rules restrict any use of the information to criminally investigate or prosecute any alcohol or drug abuse patient.[facility]In the event this information is protected by the Federal Confidentiality of Alcohol and Drug Abuse Patient Records regulations: The Federal rules restrict any use of the information to criminally investigate or prosecute any alcohol or drug abuse patient.[facility]In the event this information is protected by the Federal Confidentiality of Alcohol and Drug Abuse Patient Records regulations: The Federal rules restrict any use of the information to criminally investigate or prosecute any alcohol or drug abuse patient.[facility]In the event this information is protected by the Federal Confidentiality of Alcohol and Drug Abuse Patient Records regulations: The Federal rules restrict any use of the information to criminally investigate or prosecute any alcohol or drug abuse patient.[facility]In the event this information is protected by the Federal Confidentiality of Alcohol and Drug Abuse Patient Records regulations: The Federal rules restrict any use of the information to criminally investigate or prosecute any alcohol or drug abuse patient.[facility]In the event this information is protected by the Federal Confidentiality of Alcohol and Drug Abuse Patient Records regulations: The Federal rules restrict any use of the information to criminally investigate or prosecute any alcohol or drug abuse patient.[facility]In the event this information is protected by the Federal Confidentiality of Alcohol and Drug Abuse Patient Records regulations: The Federal rules restrict any use of the information to criminally investigate or prosecute any alcohol or drug abuse patient.[facility]In the event this information is protected by the Federal Confidentiality of Alcohol and Drug Abuse Patient Records regulations: The Federal rules restrict any use of the information to criminally investigate or prosecute any alcohol or drug abuse patient.[facility]In the event this information is protected by the Federal Confidentiality of Alcohol and Drug Abuse Patient Records regulations: The Federal rules restrict any use of the information to criminally investigate or prosecute any alcohol or drug abuse patient.[facility]In the event this information is protected by the Federal Confidentiality of Alcohol and Drug Abuse Patient Records regulations: The Federal rules restrict any use of the information to criminally investigate or prosecute any alcohol or drug abuse patient.[facility]In the event this information is protected by the Federal Confidentiality of Alcohol and Drug Abuse Patient Records regulations: The Federal rules restrict any use of the information to criminally investigate or prosecute any alcohol or drug abuse patient.[facility]In the event this information is protected by the Federal Confidentiality of Alcohol and Drug Abuse Patient Records regulations: The Federal rules restrict any use of the information to criminally investigate or prosecute any alcohol or drug abuse patient.[facility]In the event this information is protected by the Federal Confidentiality of Alcohol and Drug Abuse Patient Records regulations: The Federal rules restrict any use of the information to criminally investigate or prosecute any alcohol or drug abuse patient.[facility]In the event this information is protected by the Federal Confidentiality of Alcohol and Drug Abuse Patient Records regulations: The Federal rules restrict any use of the information to criminally investigate or prosecute any alcohol or drug abuse patient.[facility]In the event this information is protected by the Federal Confidentiality of Alcohol and Drug Abuse Patient Records regulations: The Federal rules restrict any use of the information to criminally investigate or prosecute any alcohol or drug abuse patient.[facility]In the event this information is protected by the Federal Confidentiality of Alcohol and Drug Abuse Patient Records regulations: The Federal rules restrict any use of the information to criminally investigate or prosecute any alcohol or drug abuse patient.[facility]In the event this information is protected by the Federal Confidentiality of Alcohol and Drug Abuse Patient Records regulations: The Federal rules restrict any use of the information to criminally investigate or prosecute any alcohol or drug abuse patient.[facility] CenterIn the event this information is protected by the Federal Confidentiality of Alcohol and Drug Abuse Patient Records regulations: The Federal rules restrict any use of the information to criminally investigate or prosecute any alcohol or drug abuse patient.[facility] CenterIn the event this information is protected by the Federal Confidentiality of Alcohol and Drug Abuse Patient Records regulations: The Federal rules restrict any use of the information to criminally investigate or prosecute any alcohol or drug abuse patient.[facility] CenterIn the event this information is protected by the Federal Confidentiality of Alcohol and Drug Abuse Patient Records regulations: The Federal rules restrict any use of the information to criminally investigate or prosecute any alcohol or drug abuse patient.[facility] CenterIn the event this information is protected by the Federal Confidentiality of Alcohol and Drug Abuse Patient Records regulations: The Federal rules restrict any use of the information to criminally investigate or prosecute any alcohol or drug abuse patient.[facility] CenterIn the event this information is protected by the Federal Confidentiality of Alcohol and Drug Abuse Patient Records regulations: The Federal rules restrict any use of the information to criminally investigate or prosecute any alcohol or drug abuse patient.[facility] CenterIn the event this information is protected by the Federal Confidentiality of Alcohol and Drug Abuse Patient Records regulations: The Federal rules restrict any use of the information to criminally investigate or prosecute any alcohol or drug abuse patient.[facility] CenterIn the event this information is protected by the Federal Confidentiality of Alcohol and Drug Abuse Patient Records regulations: The Federal rules restrict any use of the information to criminally investigate or prosecute any alcohol or drug abuse patient.[facility] CenterIn the event this information is protected by the Federal Confidentiality of Alcohol and Drug Abuse Patient Records regulations: The Federal rules restrict any use of the information to criminally investigate or prosecute any alcohol or drug abuse patient.[facility] CenterIn the event this information is protected by the Federal Confidentiality of Alcohol and Drug Abuse Patient Records regulations: The Federal rules restrict any use of the information to criminally investigate or prosecute any alcohol or drug abuse patient.[facility] CenterIn the event this information is protected by the Federal Confidentiality of Alcohol and Drug Abuse Patient Records regulations: The Federal rules restrict any use of the information to criminally investigate or prosecute any alcohol or drug abuse patient.[facility] CenterIn the event this information is protected by the Federal Confidentiality of Alcohol and Drug Abuse Patient Records regulations: The Federal rules restrict any use of the information to criminally investigate or prosecute any alcohol or drug abuse patient.[facility] CenterIn the event this information is protected by the Federal Confidentiality of Alcohol and Drug Abuse Patient Records regulations: The Federal rules restrict any use of the information to criminally investigate or prosecute any alcohol or drug abuse patient.[facility] CenterIn the event this information is protected by the Federal Confidentiality of Alcohol and Drug Abuse Patient Records regulations: The Federal rules restrict any use of the information to criminally investigate or prosecute any alcohol or drug abuse patient.[facility] CenterIn the event this information is protected by the Federal Confidentiality of Alcohol and Drug Abuse Patient Records regulations: The Federal rules restrict any use of the information to criminally investigate or prosecute any alcohol or drug abuse patient.[facility] CenterIn the event this information is protected by the Federal Confidentiality of Alcohol and Drug Abuse Patient Records regulations: The Federal rules restrict any use of the information to criminally investigate or prosecute any alcohol or drug abuse patient.[facility] CenterIn the event this information is protected by the Federal Confidentiality of Alcohol and Drug Abuse Patient Records regulations: The Federal rules restrict any use of the information to criminally investigate or prosecute any alcohol or drug abuse patient.[facility] CenterIn the event this information is protected by the Federal Confidentiality of Alcohol and Drug Abuse Patient Records regulations: The Federal rules restrict any use of the information to criminally investigate or prosecute any alcohol or drug abuse patient.[facility] CenterIn the event this information is protected by the Federal Confidentiality of Alcohol and Drug Abuse Patient Records regulations: The Federal rules restrict any use of the information to criminally investigate or prosecute any alcohol or drug abuse patient.[facility] CenterIn the event this information is protected by the Federal Confidentiality of Alcohol and Drug Abuse Patient Records regulations: The Federal rules restrict any use of the information to criminally investigate or prosecute any alcohol or drug abuse patient.[facility] CenterIn the event this information is protected by the Federal Confidentiality of Alcohol and Drug Abuse Patient Records regulations: The Federal rules restrict any use of the information to criminally investigate or prosecute any alcohol or drug abuse patient.[facility] CenterIn the event this information is protected by the Federal Confidentiality of Alcohol and Drug Abuse Patient Records regulations: The Federal rules restrict any use of the information to criminally investigate or prosecute any alcohol or drug abuse patient.[facility] CenterIn the event this information is protected by the Federal Confidentiality of Alcohol and Drug Abuse Patient Records regulations: The Federal rules restrict any use of the information to criminally investigate or prosecute any alcohol or drug abuse patient.[facility] CenterIn the event this information is protected by the Federal Confidentiality of Alcohol and Drug Abuse Patient Records regulations: The Federal rules restrict any use of the information to criminally investigate or prosecute any alcohol or drug abuse patient.[facility] CenterIn the event this information is protected by the Federal Confidentiality of Alcohol and Drug Abuse Patient Records regulations: The Federal rules restrict any use of the information to criminally investigate or prosecute any alcohol or drug abuse patient.[facility] CenterIn the event this information is protected by the Federal Confidentiality of Alcohol and Drug Abuse Patient Records regulations: The Federal rules restrict any use of the information to criminally investigate or prosecute any alcohol or drug abuse patient.[facility] CenterIn the event this information is protected by the Federal Confidentiality of Alcohol and Drug Abuse Patient Records regulations: The Federal rules restrict any use of the information to criminally investigate or prosecute any alcohol or drug abuse patient.[facility] CenterIn the event this information is protected by the Federal Confidentiality of Alcohol and Drug Abuse Patient Records regulations: The Federal rules restrict any use of the information to criminally investigate or prosecute any alcohol or drug abuse patient.[facility] CenterIn the event this information is protected by the Federal Confidentiality of Alcohol and Drug Abuse Patient Records regulations: The Federal rules restrict any use of the information to criminally investigate or prosecute any alcohol or drug abuse patient.[facility] CenterIn the event this information is protected by the Federal Confidentiality of Alcohol and Drug Abuse Patient Records regulations: The Federal rules restrict any use of the information to criminally investigate or prosecute any alcohol or drug abuse patient.[facility] CenterIn the event this information is protected by the Federal Confidentiality of Alcohol and Drug Abuse Patient Records regulations: The Federal rules restrict any use of the information to criminally investigate or prosecute any alcohol or drug abuse patient.[facility] CenterIn the event this information is protected by the Federal Confidentiality of Alcohol and Drug Abuse Patient Records regulations: The Federal rules restrict any use of the information to criminally investigate or prosecute any alcohol or drug abuse patient.[facility] CenterIn the event this information is protected by the Federal Confidentiality of Alcohol and Drug Abuse Patient Records regulations: The Federal rules restrict any use of the information to criminally investigate or prosecute any alcohol or drug abuse patient.[facility] CenterIn the event this information is protected by the Federal Confidentiality of Alcohol and Drug Abuse Patient Records regulations: The Federal rules restrict any use of the information to criminally investigate or prosecute any alcohol or drug abuse patient.[facility] CenterIn the event this information is protected by the Federal Confidentiality of Alcohol and Drug Abuse Patient Records regulations: The Federal rules restrict any use of the information to criminally investigate or prosecute any alcohol or drug abuse patient.[facility] CenterIn the event this information is protected by the Federal Confidentiality of Alcohol and Drug Abuse Patient Records regulations: The Federal rules restrict any use of the information to criminally investigate or prosecute any alcohol or drug abuse patient.[facility] CenterIn the event this information is protected by the Federal Confidentiality of Alcohol and Drug Abuse Patient Records regulations: The Federal rules restrict any use of the information to criminally investigate or prosecute any alcohol or drug abuse patient.[facility] CenterIn the event this information is protected by the Federal Confidentiality of Alcohol and Drug Abuse Patient Records regulations: The Federal rules restrict any use of the information to criminally investigate or prosecute any alcohol or drug abuse patient.[facility] CenterIn the event this information is protected by the Federal Confidentiality of Alcohol and Drug Abuse Patient Records regulations: The Federal rules restrict any use of the information to criminally investigate or prosecute any alcohol or drug abuse patient.[facility] CenterIn the event this information is protected by the Federal Confidentiality of Alcohol and Drug Abuse Patient Records regulations: The Federal rules restrict any use of the information to criminally investigate or prosecute any alcohol or drug abuse patient.[facility] CenterIn the event this information is protected by the Federal Confidentiality of Alcohol and Drug Abuse Patient Records regulations: The Federal rules restrict any use of the information to criminally investigate or prosecute any alcohol or drug abuse patient.[facility] CenterIn the event this information is protected by the Federal Confidentiality of Alcohol and Drug Abuse Patient Records regulations: The Federal rules restrict any use of the information to criminally investigate or prosecute any alcohol or drug abuse patient.[facility] CenterIn the event this information is protected by the Federal Confidentiality of Alcohol and Drug Abuse Patient Records regulations: The Federal rules restrict any use of the information to criminally investigate or prosecute any alcohol or drug abuse patient.[facility] CenterIn the event this information is protected by the Federal Confidentiality of Alcohol and Drug Abuse Patient Records regulations: The Federal rules restrict any use of the information to criminally investigate or prosecute any alcohol or drug abuse patient.[facility] CenterIn the event this information is protected by the Federal Confidentiality of Alcohol and Drug Abuse Patient Records regulations: The Federal rules restrict any use of the information to criminally investigate or prosecute any alcohol or drug abuse patient.[facility] CenterIn the event this information is protected by the Federal Confidentiality of Alcohol and Drug Abuse Patient Records regulations: The Federal rules restrict any use of the information to criminally investigate or prosecute any alcohol or drug abuse patient.[facility] Reason for Visit (unrecogniz ed section and [...] OT Reason Comments Hospital F/U Follow up [facility] and Av enue discharge Reason Comments Results Reason Comments Established Patient Reason Comments [facility] - medication question Reason Comments Vulvar problem Reason Comments Same Day Appointment lump in anus area x 1 week txd with antibiotics Reason Comments Lump on anus Reason Comments Follow Up 4 month Reason Comments patient asking for 3 D mamm order fax to [facility] Reason Comments Refill Request Reason Comments New Patient Palpitations Specialty Diagnoses / Procedures Referred By Contac t Referred To Contact Cardiology Diagnoses Palpitations Paroxysmal SVT (supraventricular tachycardia) Procedures CONSULT TO CARDIOLOGY OFFICE/OUTPATIENT NEW HIGH MDM 60-74 MINUTES Davon Wolfe, CORRECTIONAL CAPTAIN.COMPUTER NUMERICAL CONTROL PROGRAMMER [address] [place] [address] Referral ID Status Reason Start Date Expiration Date Visits Requested Visits Authorized [id number] Pending Review PCP Requested Referral 11/12/2022 11/12/2023 1 1 Reason Onset Date Comments Refill Request 06/14/2023 Reason Comments Spirometry Specialty Diagnoses / Procedures Referred By Contac t Referred To [facility] Diagnoses Severe persistent asthma without complication Procedures OXIMETRY WITH AMBULATION NONINVASIVE EAR/PULSE OXIMETRY MULTIPLE DETER Tierney Nunez, MONSTER [address] [place] [address] [facility] [address] [place] [address] Referral ID Status Reason Start Date Expiration Date V isits Requested Visits Authorized [id number] Closed Auto-Generate d Referral 06/23/2023 07/17/2023 1 1 Specialty Diagnoses / [facility] Diagnoses Severe persistent asthma without complication Procedures NITRIC OXIDE, EXHALED NITRIC OXIDE GAS DETERMINATION Tierney Nunez PA-C [address] [place] [address] [facility] [address] [place] [address] Referral ID Status Reason Start Date Expiration Date V isits Requested Visits Authorized [id number] Closed Auto-Generate d Referral 06/23/2023 07/22/2024 1 [...] Diabetes Specialty Diagnoses / Procedures 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) Procedures CONSULT TO ENDOCRINOLOGY OFFICE/OUTPATIENT [facility] 60 MINUTES Lydia Grande, CORRECTIONAL CAPTAIN.VP CUSTOMER SERVICE [address] [place] [address] Referral ID Status Reason Start Date Expiration Date V isits Requested Visits Authorized [id number] Closed PCP Requested Referral 11/08/2023 11/07/2024 1 [...] DSME/MNT MEDICAL NUTRITION ASSMT&IVNTJ INDIV EACH 15 MD MEDICAL NUTRITION ASSMT&IVNTJ INDIV EACH 15 MD MEDICAL NUTRITION ASSMT&IVNTJ INDIV EACH 15 MD MEDICAL NUTRITION ASSMT&IVNTJ INDIV EACH 15 MD Renetta Mcgee CORRECTIONAL CAPTAIN.COMPUTER NUMERICAL CONTROL PROGRAMMER [address] [place] [address] Referral ID Status Reason Start Date Expiration Date V isits Requested Visits Authorized [id number] Closed PCP Requested Referral 12/07/2023 12/06/2024 1 1 Reason Comments Orders Lab Orders Reason Comments Diabetes mellitus type 1, controlled, wi thout complications Reason Comments Orders Reason Comments Established Patient Increased dyspnea Reason Comments Symbicort needs authorized Reason Comments F/U 4 month Labs prior Reason Onset Date Comments Refill Request 03/23/2024 Specialty Diagnoses / Procedures Referred By Contac t Referred To Contact [facility] Diagnoses Mild persistent asthma without complication Procedures NITRIC OXIDE, EXHALED NITRIC OXIDE GAS DETERMINATION Jeannine Perkins MD [address] [place] [address] [facility] [place] [address] [place] [address] Referral ID Status Reason Start Date Expiration Date V isits Requested Visits Authorized [id number] Closed Auto-Generate d Referral 09/22/2023 10/21/2024 1 1 Reason Comments Established Patient 6 month follow up as thma Asthma Reason Comments Medical Nutrition Therapy Type 1 Diabete s Reason Comments Cough Cough, sneezing and right side of neck hurts x 2 days Reason Comments Recheck [facility] ER 05/05/24 shor tness of breath with chest discomfort was note arrhythmia Dental Problem questions a tooth ab scess. Reason Comments checking if lab work due Reason Comments 4 month follow up [facility] ER 06/08/24 foll ow up for UTI.Treated [...] Comments Constipation Reason Onset Date Comments Population Health Navigation Outreach 08/17/2024 [employer] High Risk - Attempt 1 Reason Comments Clinical Update Reason Comments Blood sugar test strips PA Reason Comments ER F/U [facility] 09/20 abdominal pa in, constipation; [facility] 09/21 hyperglycemia; [facility] diarrhea Reason Comments 4 month f/up Reason Comments Patient Question Requesting a call back from nurse Returning Patient's Call Reason Comments High Blood Sugar left leg pain Reason Comments Patient Update Ongoing high blood s ugars Reason Comments type 1 diabetes Reason Onset Date Comments Perinatal Educator- Other 11/07/2024 CDM chart review Reason Comments Patient Question Low heart rate Reason Onset Date Comments Refill Request 12/12/2024 Reason Comments Patient Update Returning Patient's Call Reason Comments Medicare Wellness Exam Care Teams (unrecognized sec tion and content) [employer] Resource Teacher Relationship Specialty Start Date End Date Octavio Reza MD [address] [place] [address] PCP - General Internal Medicine 08/24/10 [employer] Resource Teacher Relationship Specialty Start Date End Date Octavio Reza MD [address] [place] [address] PCP - General Internal Medicine 08/24/10 [employer] Resource Teacher Relationship Specialty Start Date End Date Octavio Reza MD [address] [place] [address] PCP - General Internal Medicine 08/24/10 [employer] Resource Teacher Relationship Specialty Start Date End Date Octavio Reza MD [address] [place] [address] PCP - General Internal Medicine 08/24/10 [employer] Resource Teacher Relationship Specialty Start Date End Date Octavio Reza MD [address] [place] [address] PCP - General Internal Medicine 08/24/10 [employer] Resource Teacher Relationship Specialty Start Date End Date Octavio Reza MD [address] [facility] [place] [address] PCP - General Internal Medicine 08/24/10 [employer] Resource Teacher Relationship Specialty Start Date End Date Octavio Reza MD [address] [place] [address], [place] [address] PCP - General Internal Medicine 08/24/10 [employer] Resource Teacher Relationship Specialty Start Date End Date Octavio Reza MD [address] [place] [address], [place] [address] PCP - General Internal Medicine 08/24/10 [employer] Resource Teacher Relationship Specialty Start Date End Date Octavio Reza MD [address] [place] [address], [place] [address] PCP - General Internal Medicine 08/24/10 [employer] Resource Teacher Relationship Specialty Start Date End Date Octavio Reza MD [address] [place] [address], [place] [address] PCP - General Internal Medicine 08/24/10 [employer] Resource Teacher Relationship Specialty Start Date End Date Octavio Reza MD [address] [place] [address], [place] [address] PCP - General Internal Medicine 08/24/10 [employer] Resource Teacher Relationship Specialty Start Date End Date Octavio Reza MD [address] [place] [address], [place] [address] PCP - General Internal Medicine 08/24/10 [employer] Resource Teacher Relationship Specialty Start Date End Date Octavio Reza MD [address] [place] [address], [place] [address] PCP - General Internal Medicine 08/24/10 [employer] Resource Teacher Relationship Specialty Start Date End Date Octavio Reza MD [address] [place] [address], [place] [address] PCP - General Internal Medicine 08/24/10 [employer] Resource Teacher Relationship Specialty Start Date End Date Octavio Reza MD [address] [facility] [place] [address] PCP - General Internal Medicine 08/24/10 [employer] Resource Teacher Relationship Specialty Start Date End Date Octavio Reza MD [address] [place] [address] PCP - General Internal Medicine 08/24/10 [employer] Resource Teacher Relationship Specialty Start Date End Date Octavio Reza MD [address] [place] [address] PCP - General Internal Medicine 08/24/10 [employer] Resource Teacher Relationship Specialty Start Date End Date Octavio Reaz MD [address] [place] [address] PCP - General Internal Medicine 08/24/10 [employer] Resource Teacher Relationship Specialty Start Date End Date Octavio Reza MD [address] [place] [address] PCP - General Internal Medicine 08/24/10 [employer] Resource Teacher Relationship Specialty Start Date End Date Octavio Reza MD [address] [place] [address] PCP - General Internal Medicine 08/24/10 Team Status: Active Member Role Status Dates Dr. Octavio Reza MD Family Provider Active Dr. Octavio Reza MD Primary Care Provider Active Team Status: Inactive Member Role Status Dates Dr. Octavio Reza MD Primary Care Provider, Referr ing Provider Active Areli LOWRY, PA Attending Provider Active Team Status: Active Member Role Status Dates Dr. Octavio Reza MD Primary Care Provider Active Dr. Vazquez Harevy DO Emergency Provider Active Dr. Tawanda Herring [...] Provider A ctive Dr. Jer Escobedo , DO Attending Provider, Other Pro vider Active Team [...] Provider A ctive Dr. Jer Escobedo , DO Attending Provider Active Team Status: Inactive [...] Dr. Tawanda Herring MD Other Provider Active [employer] Resource [employer] Relationship Specialty Start Date End Date Octavio Reza MD [address] [place] [address] PCP - General Internal Medicine 08/24/10 [employer] Resource Teacher Relationship Specialty Start Date End Date Octavio Reza MD [address] [place] [address] PCP - General Internal Medicine 08/24/10 Team Status: Active Member Role Status Dates Dr. Octavio Reza MD Primary Care Provider Active Dr. Jayden Alberto MD Attending Provider, Refe rring Provider Active Team Status: Inactive Member Role Status Dates Dr. Octavio Reza MD Primary Care Provider Active Dr. Zay Juan DO Emergency Provider Active [employer] Resource Teacher Relationship Specialty Start Date End Date Octavio Reza MD [address] [place] [address] PCP - General Internal Medicine 08/24/10 [employer] Resource Teacher Relationship Specialty Start Date End Date Octavio Reza MD [address] [place] [address] PCP - General Internal Medicine 08/24/10 Team Status: Inactive Member Role Status Dates Dr. Octavio Reza MD Primary Care Provider Active Dr. Zay Juan DO Attending Provider, Leo mora Active Team Status: Inactive Member Role Status [...] Reza MD Primary Care Provider Active Areli LOWRY, PA Attending Provider, Referr ing Provider Active [employer] Resource Teacher Relationship Specialty Start Date End Date Octavio Reza MD [address] [facility] [place] [address] PCP - General Internal Medicine 08/24/10 [employer] Resource Teacher Relationship Specialty Start Date End Date Octavio Reza MD [address] [facility] [place] [address] PCP - General Internal Medicine 08/24/10 [employer] Resource Teacher Relationship Specialty Start Date End Date Octavio Reza MD [address] [facility] [place] [address] PCP - General Internal Medicine 08/24/10 Team Status: Inactive Member Role Status Dates Dr. Octavio Reza MD Primary Care Pr ovider, Attending Provider, Referring Provider Active [employer] Resource Teacher Relationship Specialty Start Date End Date Octavio Reza MD [address] [facility] [place] [address] PCP - General Internal Medicine 08/24/10 [employer] Resource Teacher Relationship Specialty Start Date End Date Octavio Reza MD [address] [facility] [place] [address] PCP - General Internal Medicine 08/24/10 [employer] Resource Teacher Relationship Specialty Start Date End Date Octavio Reza MD [address] [facility] [place] [address] PCP - General Internal Medicine 08/24/10 [employer] Resource Teacher Relationship Specialty Start Date End Date Octavio Reza MD [address] [place] [address] PCP - General Internal Medicine 08/24/10 [employer] Resource Teacher Relationship Specialty Start Date End Date Octavio Reza MD [address] [place], [place] [address] PCP - General Internal Medicine 08/24/10 [employer] Resource Teacher Relationship Specialty Start Date End Date Octavio Reza MD [address] [place], [place] [address]441 PCP - General Internal Medicine 08/24/10 [employer] Resource Teacher Relationship Specialty Start Date End Date Octavio Reza MD [address] [place], [place] [address] PCP - General Internal Medicine 08/24/10 Team [...] DO Attending Provider, Referring Provide r Active [employer] Resource Teacher Relationship Specialty Start Date End Date Octavio Reza MD [address] [facility] [place] [address] PCP - General Internal Medicine 08/24/10 [employer] Resource Teacher Relationship Specialty Start Date End Date Octavio Reza MD [address] [place] [address] PCP - General Internal Medicine 08/24/10 [employer] Resource Teacher Relationship Specialty Start Date End Date Octavio Reza MD [address] [place] [address] PCP - General Internal Medicine 08/24/10 [employer] Resource Teacher Relationship Specialty Start Date End Date Octavio Reza MD [address] [place] [address] PCP - General Internal Medicine 08/24/10 Team Status: Inactive Member Role Status Dates Dr. Octavio Reza MD Primary Care Provider, Referr ing Provider Active Jae Lee CLOCK SMITH, CLOCK SMITH-C Attending Provider Active Team Status: Active Member [...] Dr. Mark Castillo MD Emergency Provider Active [employer] Resource Teacher Relationship Specialty Start Date End Date Octavio Reza MD [address] [place] [address] PCP - General Internal Medicine 08/24/10 Team Status: Inactive Member Role Status Dates Dr. Octavio Reza MD Primary Care Provider Active Dr. Mark Castillo MD Attending Provider, Emergency Provi kaye Active [employer] Resource Teacher Relationship Specialty Start Date End Date Octavio Reza MD [address] [place] [address] PCP - General Internal Medicine 08/24/10 [employer] Resource Teacher Relationship Specialty Start Date End Date Octavio Reza MD [address] [facility] [place] [address] PCP - General Internal Medicine 08/24/10 Team Status: Inactive Member Role Status Dates Dr. Octavio Reza MD Primary Care Provider Active Dr. Holland Sanches DO Emergency Provider Active [employer] Resource Teacher Relationship Specialty Start Date End Date Octavio Reza MD [address] [facility] [place] [address] PCP - General Internal Medicine 08/24/10 [employer] Resource Teacher Relationship Specialty Start Date End Date Octavio Reza MD [address] [facility] [place] [address] PCP - General Internal Medicine 08/24/10 [employer] Resource Teacher Relationship Specialty Start Date End Date Octavio Reza MD [address] [facility] [place] [address] PCP - General Internal Medicine 08/24/10 [employer] Resource Teacher Relationship Specialty Start Date End Date Octavio Reza MD [address] [facility] [place] [address] PCP - General Internal Medicine 08/24/10 Team Status: Inactive Member Role Status Dates Dr. Octavio Reza MD Primary Care Provider Active Dr. Holland Sanches DO Attending Provider, Emergency Nolan mora Active [employer] Resource Teacher Relationship Specialty Start Date End Date Octavio Reza MD [address] [facility] [place] [address] PCP - General Internal Medicine 08/24/10 [employer] Resource Teacher Relationship Specialty Start Date End Date Octavio Reza MD [address] [facility] [place] [address] PCP - General Internal Medicine 08/24/10 [facility] [address] [facility] [place] [address] Pharmacist Pharmacy 01/12/24 [employer] Resource Teacher Relationship Specialty Start Date End Date Octavio Reza MD [address] [facility] [place] [address] PCP - General Internal Medicine 08/24/10 [facility] [address] [place] [address] Pharmacist Pharmacy 01/12/24 [employer] Resource Teacher Relationship Specialty Start Date End Date Octavio Reza MD [address] [facility] [place] [address] PCP - General Internal Medicine 08/24/10 [facility] [address] [facility] [place] [address] Pharmacist Pharmacy 01/12/24 [employer] Resource Teacher Relationship Specialty Start Date End Date Octavio Reza MD [address] [place] [address] PCP - General Internal Medicine 08/24/10 [facility] [address] [place] [address] Pharmacist Pharmacy 01/12/24 [employer] School Resource Teacher Relationship Specialty Start Date End Date Octavio Reza MD [address] [facility] [place] [address] PCP - General Internal Medicine 08/24/10 [facility] [address] [place] [address] Pharmacist Pharmacy 01/12/24 Middle School Resource Teacher Relationship Specialty Start Date End Date Octavio Reza MD [address] [facility] [place] [address] PCP - General Internal Medicine 08/24/10 [facility] [address] [facility] [place] [address] Pharmacist Pharmacy 01/12/24 [employer] School Resource Teacher Relationship Specialty Start Date End Date Octavio Reza MD [address] [facility] [place] [address] PCP - General Internal Medicine 08/24/10 [facility] [address] [place] [address] Pharmacist Pharmacy 01/12/24 Middle School Resource Teacher Relationship Specialty Start Date End Date Octavio Reza MD [address] [place] [address] PCP - General Internal Medicine 08/24/10 [facility] [address] [place] [address] Pharmacist Pharmacy 01/12/24 Middle School Resource Teacher Relationship Specialty Start Date End Date Octavio Reza MD [address] [place] [address] PCP - General Internal Medicine 08/24/10 Charis Lucas, [facility] [address] [place] [address] Pharmacist Pharmacy 01/12/24 [employer] School Resource Teacher Relationship Specialty Start Date End Date Octavio Reza MD [address] [place] [address] PCP - General Internal Medicine 08/24/10 [facility] [address] [place] [address] Pharmacist Pharmacy 01/12/24 Middle School Resource Teacher Relationship Specialty Start Date End Date Octavio Reza MD [address] [place] [address] PCP - General Internal Medicine 08/24/10 [facility] [address] [place] [address] Pharmacist Pharmacy 01/12/24 Middle School Resource Teacher Relationship Specialty Start Date End Date Octavio Reza MD [address] [place] [address] PCP - General Internal Medicine 08/24/10 [facility] [address] [place] [address] Pharmacist Pharmacy 01/12/24 Middle School Resource Teacher Relationship Specialty Start Date End Date Octavio Reza MD [address] [facility] [place] [address] PCP - General Internal Medicine 08/24/10 Charis Lucas, [facility] [address] [place] [address] Pharmacist Pharmacy 01/12/24 [employer] School Resource Teacher Relationship Specialty Start Date End Date Octavio Reza MD [address] [facility] [place] [address] PCP - General Internal Medicine 08/24/10 [facility], RPh [address] [place] [address] Pharmacist Pharmacy 01/12/24 Federica Alonzo, DEONNA [address] [place], [place] [id number] Perinatal Educator 04/04/24 [employer] Resource Teacher Relationship Specialty Start Date End Date Octavio Reza MD [address] [place] [address] PCP - General Internal Medicine 08/24/10 [facility]hdruJaniCharis, RPh [address] [place] [address] Pharmacist Pharmacy 01/12/24 Federica Alonzo RN [address] [place] [address] Perinatal Educator 04/04/24 Middle School Resource Teacher Relationship Specialty Start Date End Date Octavio Reza MD [address] [place] [address] PCP - General Internal Medicine 08/24/10 [facility] [address] [place] [address] Pharmacist Pharmacy 01/12/24 Federica Alonzo RN [address] [place] [address] Perinatal Educator 04/04/24 Middle School Resource Teacher Relationship Specialty Start Date End Date Octavio Reza MD [address] [facility] [place] [address] PCP - General Internal Medicine 08/24/10 [employer] Resource Teacher Relationship Specialty Start Date End Date Octavio Reza MD [address] [facility] [place] [address] PCP - General Internal Medicine 08/24/10 [facility] [address] [place] [address] Pharmacist Pharmacy 01/12/24 Federica Alonzo RN [address] [place], [place] [id number] Perinatal Educator 04/04/24 Middle School Resource Teacher Relationship Specialty Start Date End Date Octavio Reza MD [address] [facility] [place] [address] PCP - General Internal Medicine 08/24/10 [facility] [address] [place] [address] Pharmacist Pharmacy 01/12/24 Federica Alonzo RN [address] [place], [place] [id number] Perinatal Educator 04/04/24 Middle School Resource Teacher Relationship Specialty Start Date End Date Octavio Reza MD [address] [facility] [place] [address] PCP - General Internal Medicine 08/24/10 [facility] [address] [place] [address] Pharmacist Pharmacy 01/12/24 Federica Alonzo RN [address] [place] [address] Perinatal Educator 04/04/24 [employer] Resource Teacher Relationship Specialty Start Date End Date Octavio Reza MD [address] [facility] [place] [address] PCP - General Internal Medicine 08/24/10 [facility] [address] [place] [address] Pharmacist Pharmacy 01/12/24 Federica Alonzo RN [address] [place], [place] [id number] Perinatal Educator 04/04/24 Middle School Resource Teacher Relationship Specialty Start Date End Date Octavio Reza MD [address] [facility] [place] [address] PCP - General Internal Medicine 08/24/10 [facility] [address] [place] [address] Pharmacist Pharmacy 01/12/24 Federica Alonzo RN [address] [place], [place] [id number] Perinatal Educator 04/04/24 Renetta Mcgee, CORRECTIONAL CAPTAIN.COMPUTER NUMERICAL CONTROL PROGRAMMER [address] [place] [address] Endocrinology 05/25/24 Middle School Resource Teacher Relationship Specialty Start Date End Date Octavio Reza MD [address] [facility] [place] [address] PCP - General Internal Medicine 08/24/10 [facility] [address] [place] [address] Pharmacist Pharmacy 01/12/24 Federica Alonzo RN [address] [place] [address] Perinatal Educator 04/04/24 Renetta Mcgee, CORRECTIONAL CAPTAIN.COMPUTER NUMERICAL CONTROL PROGRAMMER [address] [place] [address] Endocrinology 05/25/24 Middle School Resource Teacher Relationship Specialty Start Date End Date Octavio Reza MD [address] [place] [address] PCP - General Internal Medicine 08/24/10 [facility] [address] [place] [address] Pharmacist Pharmacy 01/12/24 Renetta Mcgee, CORRECTIONAL CAPTAIN.COMPUTER NUMERICAL CONTROL PROGRAMMER [address] [place] [address] Endocrinology 05/25/24 Middle School Resource Teacher Relationship Specialty Start Date End Date Octavio Reza MD [address] [place] [address] PCP - General Internal Medicine 08/24/10 [facility] [address] [place] [address] Pharmacist Pharmacy 01/12/24 Renetta Mcgee CORRECTIONAL CAPTAIN.COMPUTER NUMERICAL CONTROL PROGRAMMER [address] [place] [address] Endocrinology 05/25/24 Middle School Resource Teacher Relationship Specialty Start Date End Date Octavio Reza MD [address] [place] [address] PCP - General Internal Medicine 08/24/10 [facility] [address] [place] [address] Pharmacist Pharmacy 01/12/24 Renetta Mcgee, CORRECTIONAL CAPTAIN.COMPUTER NUMERICAL CONTROL PROGRAMMER [address] [place] [address] Endocrinology 05/25/24 Middle School Resource Teacher Relationship Specialty Start Date End Date Octavio Reza MD [address] [facility] [place] [address] PCP - General Internal Medicine 08/24/10 [facility] [address] [facility] [place] [address] Pharmacist Pharmacy 01/12/24 Renetta Mcgee CORRECTIONAL CAPTAIN.COMPUTER NUMERICAL CONTROL PROGRAMMER [address] [place] [address] Endocrinology 05/25/24 Middle School Resource Teacher Relationship Specialty Start Date End Date Octavio Reza MD [address] [facility] [place] [address] PCP - General Internal Medicine 08/24/10 [facility] Charis, RPh [address] [place] [address] Pharmacist Pharmacy 01/12/24 Federica Alonzo, RN [address] [place] [phone] Perinatal Educator 04/04/24 Renetta Mcgee, CORRECTIONAL CAPTAIN.COMPUTER NUMERICAL CONTROL PROGRAMMER [address] [place] [address] Endocrinology 05/25/24 Lydia Grande APRN.VP CUSTOMER SERVICE [address] [facility] [place] [address] Bank Appraiser Internal Medicine 06/25/24 Davon Wolfe CORRECTIONAL CAPTAIN.COMPUTER NUMERICAL CONTROL PROGRAMMER [address] [facility] [place] [address] Bank Appraiser Internal Medicine 06/25/24 Middle School Resource Teacher Relationship Specialty Start Date End Date Octavio Reza MD [address] [facility] [place] [address] PCP - General Internal Medicine 08/24/10 [facility] [address] [place] [address] Pharmacist Pharmacy 01/12/24 Renetta Mcgee CORRECTIONAL CAPTAIN.COMPUTER NUMERICAL CONTROL PROGRAMMER [address] [facility] [place] [address] Endocrinology 05/25/24 Lydia Grande CORRECTIONAL CAPTAIN.VP CUSTOMER SERVICE [address] [facility] [place] [address] Bank Appraiser Internal Medicine 06/25/24 Davon Wolfe CORRECTIONAL CAPTAIN.COMPUTER NUMERICAL CONTROL PROGRAMMER [address] [place] [address] Bank Appraiser Internal Medicine 06/25/24 Middle School Resource Teacher Relationship Specialty Start Date End Date Octavio Reza MD [address] [facility] [place] [address] PCP - General Internal Medicine 08/24/10 [facility] [address] [place] [address] Pharmacist Pharmacy 01/12/24 Renetta Mcgee APRN.COMPUTER NUMERICAL CONTROL PROGRAMMER [address] [place] [address] Endocrinology 05/25/24 Lydia Grande CORRECTIONAL CAPTAIN.VP CUSTOMER SERVICE [address] [facility] [place] [address] Bank Appraiser Internal Medicine 06/25/24 Davon Wolfe CORRECTIONAL CAPTAIN.COMPUTER NUMERICAL CONTROL PROGRAMMER [address] [facility] [place] [address] Bank Appraiser Internal Medicine 06/25/24 Middle School Resource Teacher Relationship Specialty Start Date End Date Octavio Reza MD [address] [place] [address] PCP - General Internal Medicine 08/24/10 Charis Lucas [facility] [address] [place] [address] Pharmacist Pharmacy 01/12/24 Renetta Mcgee CORRECTIONAL CAPTAIN.COMPUTER NUMERICAL CONTROL PROGRAMMER [address] [place] [address] Endocrinology 05/25/24 Lydia Grande, CORRECTIONAL CAPTAIN.VP CUSTOMER SERVICE [address] [facility] [place] [address] Bank Appraiser Internal Medicine 06/25/24 Davon Wolfe CORRECTIONAL CAPTAIN.COMPUTER NUMERICAL CONTROL PROGRAMMER [address] [facility] [place] [address] Bank Appraiser Internal Medicine 06/25/24 Middle School Resource Teacher Relationship Specialty Start Date End Date Octavio Reza MD [address] [facility] [place] [address] PCP - General Internal Medicine 08/24/10 [facility] [address] [facility] [place] [address] Pharmacist Pharmacy 01/12/24 Renetta Mcgee APRN.COMPUTER NUMERICAL CONTROL PROGRAMMER [address] [facility] [place] [address] Endocrinology 05/25/24 Lydia Grande, CORRECTIONAL CAPTAIN.VP CUSTOMER SERVICE [address] [facility] [place] [address] Bank Appraiser Internal Medicine 06/25/24 Davon Wolfe CORRECTIONAL CAPTAIN.COMPUTER NUMERICAL CONTROL PROGRAMMER [address] [facility] [place] [address] Bank Appraiser Internal Medicine 06/25/24 Middle School Resource Teacher Relationship Specialty Start Date End Date Octavio Reza MD [address] [facility] [place] [address] PCP - General Internal Medicine 08/24/10 [facility] [address] [facility] [place] [address] Pharmacist Pharmacy 01/12/24 Renetta Mcgee CORRECTIONAL CAPTAIN.COMPUTER NUMERICAL CONTROL PROGRAMMER [address] [place] [address] Endocrinology 05/25/24 Lydia Grande, CORRECTIONAL CAPTAIN.VP CUSTOMER SERVICE [address] [facility] [place] [address] Bank Appraiser Internal Medicine 06/25/24 Davon Wolfe CORRECTIONAL CAPTAIN.COMPUTER NUMERICAL CONTROL PROGRAMMER [address] [facility] [place] [address] Bank Appraiser Internal Medicine 06/25/24 Middle School Resource Teacher Relationship Specialty Start Date End Date Octavio Reza MD [address] [facility] [place] [address] PCP - General Internal Medicine 08/24/10 [facility] [address] [facility] [place] [address] Pharmacist Pharmacy 01/12/24 Renetta Mcgee, CORRECTIONAL CAPTAIN.COMPUTER NUMERICAL CONTROL PROGRAMMER [address] [place] [address] Endocrinology 05/25/24 Lydia Grande, CORRECTIONAL CAPTAIN.VP CUSTOMER SERVICE [address] [place] [address] Bank Appraiser Internal Medicine 06/25/24 Davon Wolfe, CORRECTIONAL CAPTAIN.COMPUTER NUMERICAL CONTROL PROGRAMMER [address] [facility] [place] [address] Bank Appraiser Internal Medicine 06/25/24 Middle School Resource Teacher Relationship Specialty Start Date End Date Octavio Reza MD [address] [place] [address] PCP - General Internal Medicine 08/24/10 [facility] [address] [place] [address] Pharmacist Pharmacy 01/12/24 Renetta Mcgee, CORRECTIONAL CAPTAIN.COMPUTER NUMERICAL CONTROL PROGRAMMER [address] [place] [address] Endocrinology 05/25/24 Lydia Grande, CORRECTIONAL CAPTAIN.VP CUSTOMER SERVICE [address] [facility] [place] [address] Bank Appraiser Internal Medicine 06/25/24 Davon Wolfe CORRECTIONAL CAPTAIN.COMPUTER NUMERICAL CONTROL PROGRAMMER [address] [facility] [place] [address] [facility] Internal Medicine 06/25/24 Middle School Resource Teacher Relationship Specialty Start Date End Date Octavio Reza MD [address] [place] [address] PCP - General Internal Medicine 08/24/10 [facility] [address] [facility] [place] [address] Pharmacist Pharmacy 01/12/24 Renetta Mcgee CORRECTIONAL CAPTAIN.COMPUTER NUMERICAL CONTROL PROGRAMMER [address] [place] [address] Endocrinology 05/25/24 Lydia Grande CORRECTIONAL CAPTAIN.VP CUSTOMER SERVICE [address] [facility] [place] [address] [facility] Internal Medicine 06/25/24 Davon Wolfe CORRECTIONAL CAPTAIN.COMPUTER NUMERICAL CONTROL PROGRAMMER [address] [facility] [place] [address] [facility] Internal Medicine 06/25/24 Middle School Resource Teacher Relationship Specialty Start Date End Date Octavio Reza MD [address] [place] [address] PCP - General Internal Medicine 08/24/10 Charis Lucas, [facility] [address] [facility] [place] [address] Pharmacist Pharmacy 01/12/24 Renetta Mcgee CORRECTIONAL CAPTAIN.COMPUTER NUMERICAL CONTROL PROGRAMMER [address] [facility] [place] [address] Endocrinology 05/25/24 Lydia Grande, CORRECTIONAL CAPTAIN.VP CUSTOMER SERVICE [address] [facility] [place] [address] Bank Appraiser Internal Medicine 06/25/24 Davon Wolfe CORRECTIONAL CAPTAIN.COMPUTER NUMERICAL CONTROL PROGRAMMER [address] [place] [address] Bank Appraiser Internal Medicine 06/25/24 Middle School Resource Teacher Relationship Specialty Start Date End Date Octavio Reza MD [address] [place] [address] PCP - General Internal Medicine 08/24/10 [facility] [address] [place] [address] Pharmacist Pharmacy 01/12/24 Renetta Mcgee, CORRECTIONAL CAPTAIN.COMPUTER NUMERICAL CONTROL PROGRAMMER [address] [place] [address] Endocrinology 05/25/24 Lydia Grande, CORRECTIONAL CAPTAIN.VP CUSTOMER SERVICE [address] [place] [address] Bank Appraiser Internal Medicine 06/25/24 Davon Wolfe CORRECTIONAL CAPTAIN.COMPUTER NUMERICAL CONTROL PROGRAMMER [address] [place] [address] Bank Appraiser Internal Medicine 06/25/24 Middle School Resource Teacher Relationship Specialty Start Date End Date Octavio Reza MD [address] [place] [address] PCP - General Internal Medicine 08/24/10 [facility] [address] [place] [address] Pharmacist Pharmacy 01/12/24 Renetta Mcgee APRN.COMPUTER NUMERICAL CONTROL PROGRAMMER [address] [place] [address] Endocrinology 05/25/24 Lydia Grande CORRECTIONAL CAPTAIN.VP CUSTOMER SERVICE [address] [place] [address] Bank Appraiser Internal Medicine 06/25/24 Davon Wolfe CORRECTIONAL CAPTAIN.COMPUTER NUMERICAL CONTROL PROGRAMMER [address] [place] [address] Bank Appraiser Internal Medicine 06/25/24 Middle School Resource Teacher Relationship Specialty Start Date End Date Octavio Reza MD [address] [place] [address] PCP - General Internal Medicine 08/24/10 Charis Lucas, [facility] [address] [place] [address] Pharmacist Pharmacy 01/12/24 Renetta Mcgee CORRECTIONAL CAPTAIN.COMPUTER NUMERICAL CONTROL PROGRAMMER [address] [place] [address] Endocrinology 05/25/24 Lydia Grande CORRECTIONAL CAPTAIN.VP CUSTOMER SERVICE [address] [place] [address] Bank Appraiser Internal Medicine 06/25/24 Davon Wolfe CORRECTIONAL CAPTAIN.COMPUTER NUMERICAL CONTROL PROGRAMMER [address] [place] [address] Bank Appraiser Internal Medicine 06/25/24 Middle School Resource Teacher Relationship Specialty Start Date End Date Octavio Reza MD [address] [place] [address] PCP - General Internal Medicine 08/24/10 [facility] [address] [place] [address] Pharmacist Pharmacy 01/12/24 Renetta Mcgee CORRECTIONAL CAPTAIN.COMPUTER NUMERICAL CONTROL PROGRAMMER [address] [place] [address] Endocrinology 05/25/24 Lydia Grande APRN.VP CUSTOMER SERVICE [address] [place] [address] Bank Appraiser Internal Medicine 06/25/24 Davon Wolfe APRN.COMPUTER NUMERICAL CONTROL PROGRAMMER [address] [place] [address] Bank Appraiser Internal Medicine 06/25/24 Middle [employer] Resource Teacher Relationship Specialty Start Date End Date Octavio Reza MD [address] [place] [address] PCP - General Internal Medicine 08/24/10 [facility] [address] [place] [address] Pharmacist Pharmacy 01/12/24 Renetta Mcgee CORRECTIONAL CAPTAIN.COMPUTER NUMERICAL CONTROL PROGRAMMER [address] [place] [address] Endocrinology 05/25/24 Lydia Grande APRN.VP CUSTOMER SERVICE [address] [place] [address] Bank Appraiser Internal Medicine 06/25/24 Davon Wolfe APRN.COMPUTER NUMERICAL CONTROL PROGRAMMER [address] [place] [address] Bank Appraiser Internal Medicine 06/25/24 Middle School Resource Teacher Relationship Specialty Start Date End Date Octavio Reza MD [address] [place] [address] PCP - General Internal Medicine 08/24/10 [facility] [address] [place] [address] Pharmacist Pharmacy 01/12/24 Renetta Mcgee CORRECTIONAL CAPTAIN.COMPUTER NUMERICAL CONTROL PROGRAMMER [address] [place] [address] Endocrinology 05/25/24 Lydia Grande, CORRECTIONAL CAPTAIN.VP CUSTOMER SERVICE [address] [place] [address] Bank Appraiser Internal Medicine 06/25/24 Davon Wolfe CORRECTIONAL CAPTAIN.COMPUTER NUMERICAL CONTROL PROGRAMMER [address] [place] [address] Bank Appraiser Internal Medicine 06/25/24 [employer] Resource Teacher Relationship Specialty Start Date End Date Octavio Reza MD [address] [place] [address] PCP - General Internal Medicine 08/24/10 [facility] [address] [place] [address] Pharmacist Pharmacy 01/12/24 Renetta Mcgee CORRECTIONAL CAPTAIN.COMPUTER NUMERICAL CONTROL PROGRAMMER [address] [place] [address] Endocrinology 05/25/24 Grande, Lydia, CORRECTIONAL CAPTAIN.VP CUSTOMER SERVICE [address] [place] [address] [facility] Internal [facility] 06/25/24 Davon Wolfe, CORRECTIONAL CAPTAIN.COMPUTER NUMERICAL CONTROL PROGRAMMER [address] [facility] [place] [address] [facility] Internal [facility] 06/25/24 Team Status: Active Member Role Status [...] 07, 2024 End: June 07, 2024 Areli Estevez PA, PA Referring Provider Active Start: June 07, 2024 End: June 07, 2024 Team Status: Active Member Role Status Dates Dr. Octavio Reza MD Primary Care Provider Active Start: June 07, 2024 Dr. Miguel Angel Bosch MD Attending Provider Active Start: June 07, 2024 Areli Estevez PA, PA Referring Provider Active Start: June 07, 2024 Team Status: Active Member Role Status Dates Dr. Octavio Reza MD Primary Care Provider Active Start: June 07, 2024 Areli LOWRY, PA Referring [...] September 23, 2024 End: September 23, 2024 Middle [employer] Resource Teacher Relationship Specialty Start Date End Date Octavio Reza MD [address] [place] [address] PCP - General Internal Medicine 08/24/10 Charis Lucas RPh [address] [place] [address] Pharmacist Pharmacy 01/12/24 Renetta Mcgee, CORRECTIONAL CAPTAIN.COMPUTER NUMERICAL CONTROL PROGRAMMER [address] [facility] [address] Endocrinology 05/25/24 Lydia Grande, CORRECTIONAL CAPTAIN.VP CUSTOMER SERVICE [address] [place] [address] Bank Appraiser Internal Medicine 06/25/24 Davon Wolfe, CORRECTIONAL CAPTAIN.COMPUTER NUMERICAL CONTROL PROGRAMMER [address] [place] [address] Bank Appraiser Internal Medicine 10/09/24 Team Status: Inactive Member [...] October 19, 2024 End: October 19, 2024 Middle School Resource Teacher Relationship Specialty Start Date End Date Octavio Reza MD [address] [facility] [place] [address] PCP - General Internal Medicine 08/24/10 Charis Lucas RP [address] [place] [address] Pharmacist Pharmacy 01/12/24 Renetta Mcgee, CORRECTIONAL CAPTAIN.COMPUTER NUMERICAL CONTROL PROGRAMMER [address] [facility] [place] [address] Endocrinology 05/25/24 Lydia Grande, CORRECTIONAL CAPTAIN.VP CUSTOMER SERVICE [address] [place] [address] Bank Appraiser Internal Medicine 06/25/24 Davon Wolfe, CORRECTIONAL CAPTAIN.COMPUTER NUMERICAL CONTROL PROGRAMMER [address] [facility] [place] [address] [facility] Internal Medicine 10/09/24 Middle School Resource Teacher Relationship Specialty Start Date End Date Octavio Reza MD [address] [place] [address] PCP - General Internal Medicine 08/24/10 Charis Lucas RPh [address] [facility] [place] [address] Pharmacist Pharmacy 01/12/24 Renetta Mcgee, CORRECTIONAL CAPTAIN.COMPUTER NUMERICAL CONTROL PROGRAMMER [address] [place] [address] Endocrinology 05/25/24 Lydia Grande, CORRECTIONAL CAPTAIN.VP CUSTOMER SERVICE [address] [facility] [place] [address] [facility] Internal Medicine 06/25/24 Davon Wolfe, CORRECTIONAL CAPTAIN.COMPUTER NUMERICAL CONTROL PROGRAMMER [address] [facility] [place] [address] [facility] Internal Medicine 10/09/24 Team Status: Inactive [...] October 24, 2024 End: October 24, 2024 Middle School Resource Teacher Relationship Specialty Start Date End Date Octavio Reza MD [address] [facility] [place] [address] PCP - General Internal Medicine 08/24/10 [facility] [address] [place] [address] Pharmacist Pharmacy 01/12/24 Renetta Mcgee CORRECTIONAL CAPTAIN.COMPUTER NUMERICAL CONTROL PROGRAMMER [address] [place] [address] Endocrinology 05/25/24 Lydia Grande, CORRECTIONAL CAPTAIN.VP CUSTOMER SERVICE [address] [place] [address] Bank Appraiser Internal Medicine 06/25/24 Davon Wolfe CORRECTIONAL CAPTAIN.COMPUTER NUMERICAL CONTROL PROGRAMMER [address] [place] [address] Bank Appraiser Internal Medicine 10/09/24 Middle School Resource Teacher Relationship Specialty Start Date End Date Octavio Reza MD [address] [place] [address] PCP - General Internal Medicine 08/24/10 [facility] [address] [place] [address] Pharmacist Pharmacy 01/12/24 Renetta Mcgee CORRECTIONAL CAPTAIN.COMPUTER NUMERICAL CONTROL PROGRAMMER [address] [place] [address] Endocrinology 05/25/24 Lydia Grande, CORRECTIONAL CAPTAIN.VP CUSTOMER SERVICE [address] [place] [address] Bank Appraiser Internal Medicine 06/25/24 Davon Wolfe CORRECTIONAL CAPTAIN.COMPUTER NUMERICAL CONTROL PROGRAMMER [address] [place] [address] Bank Appraiser Internal Medicine 10/09/24 Team Status: Inactive Member [...] November 03, 2024 End: November 03, 2024 Middle School Resource Teacher Relationship Specialty Start Date End Date Octavio Reza MD [address] [facility] [place] [address] PCP - General Internal Medicine 08/24/10 Charis Lucas RP [address] [place] [address] Pharmacist Pharmacy 01/12/24 Renetta Mcgee, CORRECTIONAL CAPTAIN.COMPUTER NUMERICAL CONTROL PROGRAMMER [address] [place] [address] Endocrinology 05/25/24 Lydia Grande, CORRECTIONAL CAPTAIN.VP CUSTOMER SERVICE [address] [place] [address] Bank Appraiser Internal Medicine 06/25/24 Davon Wolfe, CORRECTIONAL CAPTAIN.COMPUTER NUMERICAL CONTROL PROGRAMMER [address] [place] [address] Bank Appraiser Internal Medicine 10/09/24 Team Status: Inactive Member Role Status Dates Dr. Octavio Reza MD Primary Care Provider Active Start: November 03, 2024 End: November 03, 2024 Dr. Zay Juan DO Attending Provider Active Start: November 03, [...] 15, 2024 End: November 15, 2024 Areli LOWRY, PA Attending Provider Active Start: November 15, 2024 End: November 15, 2024 Team Status: Inactive Member Role Status Dates Dr. Octavio Reza MD Primary Care Provider Active Start: November 29, 2024 End: November 29, 2024 Serg Solis MD Emergency Provider Active Star t: November 29, 2024 End: November 29, 2024 Middle [employer] Resource Teacher Relationship Specialty Start Date End Date Octavio Reza MD [address] [facility] [place] [address] PCP - General Internal Medicine 08/24/10 Charis Lucas RPh [address] [place] [address] Pharmacist Pharmacy 01/12/24 Renetta Mcgee, CORRECTIONAL CAPTAIN.COMPUTER NUMERICAL CONTROL PROGRAMMER [address] [place] [address] Endocrinology 05/25/24 Davon Wolfe CORRECTIONAL CAPTAIN.COMPUTER NUMERICAL CONTROL PROGRAMMER [address] [facility] [place] [address] Bank Appraiser Internal Medicine 10/09/24 Lydia Grande, CORRECTIONAL CAPTAIN.VP CUSTOMER SERVICE [address] [place] [address] Bank Appraiser Internal Medicine 12/05/24 [employer] Resource Teacher Relationship Specialty Start Date End Date Octavio Reza MD [address] [place] [address] PCP - General Internal Medicine 08/24/10 [facility] [address] [place] [address] Pharmacist Pharmacy 01/12/24 Renetta Mcgee CORRECTIONAL CAPTAIN.COMPUTER NUMERICAL CONTROL PROGRAMMER [address] [place] [address] Endocrinology 05/25/24 Davon Wolfe CORRECTIONAL CAPTAIN.COMPUTER NUMERICAL CONTROL PROGRAMMER [address] [place] [address] Bank Appraiser Internal Medicine 10/09/24 Lydia Grande APRN.VP CUSTOMER SERVICE [address] [place] [address] Bank Appraiser Internal Medicine 12/05/24 [employer] Resource Teacher Relationship Specialty Start Date End Date Octavio Reza MD [address] [place] [address] PCP - General Internal Medicine 08/24/10 [facility]druJaniCharis, RPh [address] [place] [address] Pharmacist Pharmacy 01/12/24 Renetta Mcgee CORRECTIONAL CAPTAIN.COMPUTER NUMERICAL CONTROL PROGRAMMER [address] [place] [address] Endocrinology 05/25/24 Davon Wolfe CORRECTIONAL CAPTAIN.COMPUTER NUMERICAL CONTROL PROGRAMMER [address] [place] [address] Bank Appraiser Internal Medicine 10/09/24 Lydia Grande, CORRECTIONAL CAPTAIN.VP CUSTOMER SERVICE [address] [place] [address] Bank Appraiser Internal Medicine 12/05/24 Team Status: Active Member [...] December 19, 2024 End: December 19, 2024 Middle School Resource Teacher Relationship Specialty Start Date End Date Octavio Reza MD [address] [place] [place] [address] PCP - General Internal Medicine 08/24/10 Charis Lucas RP [address] [facility] [place] [address] Pharmacist Pharmacy 01/12/24 Renetta Mcgee CORRECTIONAL CAPTAIN.COMPUTER NUMERICAL CONTROL PROGRAMMER [address] [facility] [place] [place] [address] Endocrinology 05/25/24 Davon Wolfe CORRECTIONAL CAPTAIN.COMPUTER NUMERICAL CONTROL PROGRAMMER [address] [facility] [place] [address] Bank Appraiser Internal Medicine 10/09/24 Lydia Grande, CORRECTIONAL CAPTAIN.VP CUSTOMER SERVICE [address] [place] [address] Bank Appraiser Internal Medicine 12/05/24 Middle School Resource Teacher Relationship Specialty Start Date End Date Octavio Reza MD [address] [place] [address] PCP - General Internal Medicine 08/24/10 Charis Lucas RPh [address] [place] [address] Pharmacist Pharmacy 01/12/24 Renetta Mcgee, CORRECTIONAL CAPTAIN.COMPUTER NUMERICAL CONTROL PROGRAMMER [address] [place] [address] Endocrinology 05/25/24 Davon Wolfe, CORRECTIONAL CAPTAIN.COMPUTER NUMERICAL CONTROL PROGRAMMER [address] [facility] [place] [address] Bank Appraiser Internal Medicine 10/09/24 Lydia Grande, CORRECTIONAL CAPTAIN.VP CUSTOMER SERVICE [address] [place] [address] Bank Appraiser Internal Medicine 12/05/24 Team Status: Inactive Member Role Status Dates Dr. Octavio Reza MD Primary Care Provider Active Start: December 19, 2024 End: December 19, 2024 Dr. Abdulaziz [place] MD Attending Provider Active S tart: December 19, 2024 End: December 19, 2024 Dr. Abdulaziz [place] MD Emergency Provider Active S tart: December 19, 2024 End: December 19, 2024 Team Status: Inactive Member Role Status Dates Dr. Octavio Reza MD Primary Care Provider Active Start: January 04, 2025 End: January 04, 2025 Dr. Zay Juan DO Emergency Provider Active Start: January 04, 2025 End: January 04, 2025 Team Status: Active Member Role/Relationship Status Dates Dr. Octavio Reza MD Primary Care Provider Active Team Status: Inactive Member Role/Relationship Status Dates Dr. Octavio Reza MD Primary Care Provider Active Start: September 20, 2024 End: September 20, 2024 Dr. Lars Dahl DO Attending Provider Active Start: September 20, 2024 End: September 20, 2024 Dr. Lars Dahl DO Emergency Provider Active Start: September 20, 2024 End: September 20, 2024 Team Status: Inactive Member Role/Relationship Status Dates Dr. Octavio Reza MD Primary Care Provider Active Start: September 21, 2024 End: September 21, 2024 Dr. Holland Sanches DO Attending Provider Active Start: September 21, 2024 End: September 21, 2024 Dr. Holland Sanches DO Emergency Provider Active Start: September 21, 2024 End: September 21, 2024 Team Status: Inactive Member Role/Relationship Status Dates Dr. Octavio Reza MD Primary Care Provider Active Start: September 23, 2024 End: September 23, 2024 Dr. Abdulaziz [place] MD Attending Provider Active S tart: September 23, 2024 End: September 23, 2024 Dr. Abdulaziz [place] MD Emergency Provider Active S tart: September 23, 2024 End: September 23, 2024 Team Status: Inactive Member Role/Relationship Status Dates Dr. Octavio Reza MD Primary Care Provider Active Start: October 19, 2024 End: October 19, 2024 Dr. Holland Sanches DO Attending Provider Active Start: October 19, 2024 End: October 19, 2024 Dr. Holland Sanches DO Emergency Provider Active Start: October 19, 2024 End: October 19, 2024 Team Status: Inactive Member Role/Relationship Status Dates Dr. Octavio Reza MD Primary Care Provider Active Start: October 24, 2024 End: October 24, 2024 Dr. Benjamín Stanford DO Attending Provider Active Start : October 24, 2024 End: October 24, 2024 Dr. Benjamín Stanford DO Emergency Provider Active Start : October 24, 2024 End: October 24, 2024 Team Status: Inactive Member Role/Relationship Status Dates Dr. Octavio Reza MD Primary Care Provider Active Start: November 03, 2024 End: November 03, 2024 Dr. Zay Juan DO Attending Provider Active Start: November 03, 2024 End: November 03, 2024 Dr. Zay Juan DO Emergency Provider Active Start: November 03, 2024 End: November 03, 2024 Team Status: Active Member Role/Relationship Status Dates Dr. Alex Gan MD Attending Provider Active Start: November 03, 2024 Dr. Zay Juan DO Referring Provider Active Start: November 03, 2024 Team Status: Inactive Member Role/Relationship Status Dates Dr. Octavio Reza MD Primary Care Provider Active Start: November 15, 2024 End: November 15, 2024 Dr. Octavio Reza MD Referring Provider Active Start: November 15, 2024 End: November 15, 2024 Areli Estevez PA, PA Attending Provider Active Start: November 15, 2024 End: November 15, 2024 Team Status: Inactive Member Role/Relationship Status Dates Dr. Octavio Reza MD Primary Care Provider Active Start: November 29, 2024 End: November 29, 2024 Serg Solis MD Attending Provider Active Star t: November 29, 2024 End: November 29, 2024 Serg Solis MD Emergency Provider Active Star t: November 29, 2024 End: November 29, 2024 Team Status: Inactive Member Role/Relationship Status Dates Dr. Octavio Reza MD Primary Care Provider Active Start: December 19, 2024 End: December 19, 2024 Dr. Abdulaziz Stratton MD Attending Provider Active S tart: December 19, 2024 End: December 19, 2024 Dr. Abdulaziz Stratton MD Emergency Provider Active S tart: December 19, 2024 End: December 19, 2024 Team Status: Inactive Member Role/Relationship Status Dates Dr. Octavio Reza MD Primary Care Provider Active Start: January 04, 2025 End: January 04, 2025 Dr. Zay Juan DO Attending Provider Active Start: January 04, 2025 End: January 04, 2025 Dr. Zay Juan DO Emergency Provider Active Start: January 04, 2025 End: January 04, 2025 Team Status: Inactive Member Role/Relationship Status Dates Dr. Octavio Reza MD Primary Care Provider Active Start: January 14, 2025 End: January 14, 2025 Dr. Octavio Reaz MD Referring Provider Active Start: January 14, 2025 End: January 14, 2025 Jae Lee [employer], [employer] Attending Provider Active S tart: January 14, 2025 End: January 14, 2025 [employer] Resource Teacher Relationship Specialty Start Date End Date Octavio Reza MD [address] [place] [address] PCP - General Internal Medicine 08/24/10 Charis Lucas RPh [address] [place] [address] Pharmacist Pharmacy 01/12/24 Renetta Mcgee, CORRECTIONAL CAPTAIN.COMPUTER NUMERICAL CONTROL PROGRAMMER [address] [place] [address] Endocrinology 05/25/24 Davon Wolfe CORRECTIONAL CAPTAIN.COMPUTER NUMERICAL CONTROL PROGRAMMER [address] [place] [address] Bank Appraiser Internal Medicine 10/09/24 Lydia Grande, CORRECTIONAL CAPTAIN.VP CUSTOMER SERVICE [address] [place] [address] Bank Appraiser Internal Medicine 12/05/24 Goals (unrecognized section and [...] section and content) DATE CREATED AUTHOR 11/01/2023 [facility] DATE CREATED AUTHOR AUTHOR'S ORGANIZ ATION 01/14/2025 [facility] DATE CREATED AUTHOR AUTHOR'S ORGANIZ ATION 01/16/2025 [facility] FOR RECORDS PERTAINING TO PATIENTS WHO [...] BE BASED ON THE PRIMARY CLINICAL RECORDS. [employer] [facility]. provides no warranty or guarantee of the accuracy or completeness of information in this document.
[2025-01-25 21:38] VITALS: BP 171/71; PULSE 66; RESP 18; O2SAT 94
[2025-01-25 21:38] LABS: Anion Gap 13 (5-15); BUN 21 mg/dL (4-19); BUN/Creat Ratio 21.8 RATIO (10-20); Calcium,Total 9.1 mg/dL (7.6-11.0); Carbon Dioxide 23.3 mmol/L (21.0-32.0); Chloride 97 mmol/L (98-108); Glucose 295 mg/dL (70-99); Potassium 4.3 mmol/L (3.3-5.1)
--- NOTE | 2025-01-25 21:59 | EX.ED.DYSGE1 ---
HPI History of Present Illness Chief Complaint: Palpitations Detail of Chief Complaint: Palpitations, elevated blood sugar and I am anxious Informant: patient Onset/Context/Timing Onset: Today Context: Sudden Onset Timing: Continuous Quality: Palpitations and blood sugar greater than 200 Location: Cardiovascular endocrine Current Severity: Mild Maximum Severity: Moderate Worsened by: Nothing with regards to the hyperglycemia. Patient has history of anxiety Relieved by: Nothing Associated Symptoms Associated Symptoms: Anxiousness and over apologetic Narrative Narrative: Patient is 79-year-old woman. She has a history of type 1 diabetes, palpitations, obstructive sleep apnea, essential hypertension, PSVT, hyperlipidemia, obstructive sleep apnea. She presents with palpitations. Blood sugar was high starting at 5 PM. She states her blood sugar was under 1 good control until then. She denies fever, chills night sweats. She denies weight gain or weight loss. She denies headache, visual, ocular auditory symptoms. She denies any upper respiratory infectious symptoms. She denies cardiac or respiratory symptoms such as dyspnea, dyspnea on exertion. She denies orthopnea or PND. She denies abdominal pain, nausea, vomit or diarrhea. She denies dysuria, frequency, urgency or hematuria. Recent Illness/Hospitalization: No PFSH PFSH Medical History THAIS (obstructive sleep apnea) Hyperglycemia due to type 2 diabetes mellitus Palpitations Sinus bradycardia Abnormal EKG Essential hypertension Premature atrial contractions Charcot's joint of left foot Asthma GERD (gastroesophageal reflux disease) History of DVT (deep vein thrombosis) Bimalleolar ankle fracture Paroxysmal SVT (supraventricular tachycardia) Premature ventricular contraction Hyperlipidemia Diabetes mellitus, type II Home Medications ?Medication ?Instructions ?Recorded ?Last Taken ?Type ramipril 10 mg capsule 10 mg PO BID HEART 01/19/19 02/06/24 History cholecalciferol (vitamin D3) 1,250 1,250 mcg PO QWEEK SUPPLEMENT 12/03/19 02/05/24 History mcg (50,000 unit) capsule budesonide-formoterol HFA 160 2 puff inhalation BID ASTHMA 12/21/21 02/06/24 History mcg-4.5 mcg/actuation aerosol inhaler zolpidem 5 mg tablet 2.5 mg PO QHS PRN Insomnia 02/11/22 Unknown History insulin lispro 100 unit/mL 6 unit subcut TIDCM dm 06/22/22 02/06/24 History subcutaneous solution omeprazole magnesium 20 mg 20 mg PO DAILY GERD 06/22/22 02/06/24 History tablet,delayed release (Prilosec OTC) metoprolol tartrate 50 mg tablet 25 mg PO Q12H heart rate, BP 10/01/23 02/06/24 History blood sugar diagnostic (OneTouch 02/06/24 Unknown History Ultra Test strips) mometasone 0.1 % topical cream 1 applic topical QDAY PRN skin 06/13/24 Unknown History irritation furosemide 20 mg tablet 10 mg PO DAILY water pill 11/15/24 Unknown History amlodipine 10 mg tablet 10 mg PO BID 01/14/25 Unknown History aspirin 81 mg tablet,delayed 81 mg PO BID heart health 01/14/25 Unknown History release insulin glargine 100 unit/mL (3 22 unit subcut QHS 01/14/25 Unknown History mL) subcutaneous pen (Lantus Solostar U-100 Insulin) Allergy/AdvReac Type Severity Reaction Status Date / Time hydromorphone Allergy Severe Anaphylaxis Verified 01/25/25 20:41 tramadol Allergy Severe Anaphylaxis Verified 01/25/25 20:41 amiodarone Allergy Intermediate Swelling Verified 01/25/25 20:41 Enhaut And Derivatives Allergy Intermediate Hives Verified 01/25/25 20:41 morphine Allergy Intermediate confusion Verified 01/25/25 20:41 moxifloxacin Allergy Intermediate Shortness Verified 01/25/25 20:41 of breath nabumetone Allergy Intermediate damaged Verified 01/25/25 20:41 kidney penicillin G Allergy Intermediate TURNS BLUE Verified 01/25/25 20:41 propoxyphene Allergy Intermediate PT UNSURE Verified 01/25/25 20:41 OF REACTION amlodipine Allergy Mild Abd Verified 01/25/25 20:41 cramps/diarrhea desloratadine Allergy Mild headache Verified 01/25/25 20:41 glutamine (From Airborne Allergy Mild Itching Verified 01/25/25 20:41 (ascorbate sodium)) herbal complex no.124 (From Allergy Mild Itching Verified 01/25/25 20:41 Airborne (ascorbate sodium)) hydrocodone (From [place]) Allergy Mild dystonia Verified 01/25/25 20:41 lysine HCl (From [place] Allergy Mild Itching Verified 01/25/25 20:41 (ascorbate sodium)) multivitamin with minerals Allergy Mild Itching Verified 01/25/25 20:41 (From [place] (ascorbate sodium)) pravastatin Allergy Unknown unknown Verified 01/25/25 20:41 rosuvastatin (From Crestor) Allergy Unknown myalgias Verified 01/25/25 20:41 simvastatin Allergy Unknown unknown Verified 01/25/25 20:41 escitalopram Allergy Other Verified 01/25/25 20:41 hydrochlorothiazide Allergy Other Verified 01/25/25 20:41 oseltamivir (From Tamiflu) AdvReac Severe HALLUCINATI Verified 01/25/25 20:41 ONS Plgldir-RXF-UeN Reductase AdvReac Severe myalgias Verified 01/25/25 20:41 Inhibitor (Wehptwn-Yxw-Jla Reductase Inhibitor) amoxicillin (From Augmentin) AdvReac Other Verified 01/25/25 20:41 clavulanic acid (From AdvReac Other Verified 01/25/25 20:41 Augmentin) codeine AdvReac Nausea Verified 01/25/25 20:41 naproxen (From Naprosyn) AdvReac Nausea Verified 01/25/25 20:41 Family History Mother Aortic stenosis Presence of permanent cardiac pacemaker Surgical History History of herniorrhaphy Status post ORIF of fracture of ankle History of tonsillectomy History of cholecystectomy Social History household members: spouse housing: house Smoking Status: Former smoker alcohol intake: never substance use type: does not use caffeine: Yes Type: coffee Number of servings: 3 ROS ROS ED Constitutional Constitutional ED: Denies chills, fever(s), subjective, sweats or weight loss Eyes Eyes: Denies blurry vision, change in vision or diplopia ENT ENT ED: Denies rhinorrhea or sore throat Cardiovascular Cardiovascular: Reports palpitations; Denies chest pain, orthopnea, paroxysmal nocturnal dyspnea or racing heartbeat Respiratory/Chest Respiratory/Chest: Denies cough, dyspnea, dyspnea on exertion, orthopnea or paroxysmal nocturnal dyspnea Gastrointestinal Gastrointestinal: Denies abdominal pain, diarrhea, nausea or vomiting Genitourinary Genitourinary ED: Denies dysuria, hematuria or urinary frequency Musculoskeletal Musculoskeletal: Denies arthralgias or myalgias Integumentary Denies rash Neurologic Neurologic: Denies headache(s) Psychiatric Psychiatric: Reports anxiety Endocrine Endocrinology: Denies polydipsia or polyuria Hematologic/Lymphatic Hematologic/Lymphatic: Reports systems reviewed and no addt'l complaints, except as documented EXAM Physical Exam Const Vital Signs: 01/25/25 20:39 01/25/25 20:49 01/25/25 21:38 Temperature 97.5 F L Temperature Source Oral Pulse Rate 66 66 Respiratory Rate 18 18 Respiratory Effort Normal Non-Labored Respiratory Pattern Normal Blood Pressure 164/78 H 171/71 H Blood Pressure Mean 106 104 Pulse Ox 96 94 Oxygen Delivery Method Room Air Room Air Positive well nourished and well developed Constitutional Narrative: Patient is in no distress. She is anxious and talks very quickly. She apologizes repeatedly. Her blood pressure was elevated 164/78. BMI is greater than 40 General Appearance ED: well developed and pallor HEENT Reports moist mucous membranes HEENT Narrative: Head is atraumatic normocephalic. Ears normal. Nares patent. Eyes PERRL and EOMs intact bilaterally General Eye ED: Negative for pale conjunctiva or scleral icterus Neck no lymphadenopathy and supple Chest Wall inspection of chest normal and palpation of chest normal Resp normal respiratory effort and clear to auscultation bilaterally Cardio regular rate, regular rhythm, S1 normal heart sound, S2 normal heart sound and no murmurs GI normal to inspection, nondistended, normoactive bowel sounds, non-tender, non-distended and no masses; Negative for hepatosplenomegaly GI Narrative: Abdominal exam is limited due to body habitus. Extremity Negative for normal to inspection General Extremety ED: Yes edema General Extremity: edema Neuro oriented x3 and CN's II-XII intact bilaterally Sensorium / Orientation: alert Psych Mood & Affect: anxious Skin no wounds and skin turgor normal General Skin Exam: pallor; Negative for jaundice MDM MDM MDM Narrative Medical decision making narrative: BGT was 285. BMP revealed a blood sugar of 295 with normal CO2 anion gap. Patient has mild pseudohyponatremia. Prior records were reviewed. History & Record Review Additional record(s) reviewed:: Prior ED visit (She was seen in the ER January 04 for chest pain. She was seen December 19 in the ER for anxiety. She had other minor complaints and visits to the ER this past year.) and Prior labs Lab Data Labs: Laboratory Results - last 24 hr 01/25/25 01/25/25 20:51 21:07 Sodium 132 L Potassium 4.3 Chloride 97 L Carbon Dioxide 23.3 Anion Gap 13 BUN 21 H Creatinine 0.95 Est GFR (MDRD) Non-Af 61 BUN/Creatinine Ratio 21.8 H Glucose 295 H Calcium 9.1 POC Glucose 285 H Treatment and Re-Evaluation :: Blood sugars checked 1 hour after she received insulin. It is now up to 80. Patient was told it takes approximately 1 to 2 hours for the insulin to start working. She was instructed to continue taking her insulin and take her Lantus dose as scheduled this evening. Discharge Plan Triage Chief Complaint: Palpitations ED Provider: Mark Castillo Dx/Rx/DC Orders Clinical Impression: Palpitations, Essential hypertension, THAIS (obstructive sleep apnea), Hyperlipidemia, Type 1 diabetes mellitus with hyperglycemia, Anxiety Instructions: ED Diabetic Hyperglycemia, ED Palpitations Prescriptions: No Action aspirin 81 mg tablet,delayed release (DR/EC) 81 mg PO BID cholecalciferol (vitamin D3) 1,250 mcg (50,000 unit) capsule 1,250 mcg PO QWEEK insulin lispro 100 unit/mL solution 6 unit subcut TIDCM Protocol: 4. Sliding Scale Insulin High-Med Dosing Condition: 150-199 mg/dl = 2 units Condition: 200-259 mg/dl = 4 units Condition: 260-324 mg/dl = 6 units Condition: 325-374 mg/dl = 8 units Condition: 375-409 mg/dl = 10 units Condition: 410-449 mg/dl = 11 units Condition: Greater than 449 call physician Protocol Text: - Use for Total Daily Dose of Insulin 56-80 units - Patient who are insulin resistant or septic HIGH MEDIUM DOSING ALGORITHM Patient Comments: INJECT 3 TO 10 UNITS SUBCUTANEOUSLY BEFORE MEALS DIRECTED furosemide 20 mg tablet 10 mg PO DAILY budesonide-formoterol 160-4.5 mcg/actuation HFA aerosol inhaler 2 puff inhalation BID omeprazole magnesium [Prilosec OTC] 20 mg tablet,delayed release (DR/EC) 20 mg PO DAILY mometasone 0.1 % cream 1 applic topical QDAY PRN (Reason: skin irritation) amlodipine 10 mg tablet 10 mg PO BID ramipril 10 MG capsule 10 mg PO BID Patient Comments: TAKE 1 CAPSULE BY MOUTH TWICE DAILY zolpidem 5 mg Tablet 2.5 mg PO QHS PRN (Reason: Insomnia) metoprolol tartrate 50 mg tablet 25 mg PO Q12H Patient Comments: takes half tablet in morning and night (DME) OneTouch Ultra Test Strip MISCELLANEOUS Patient Comments: [NO ORIGINAL SIG] insulin glargine [Lantus Solostar U-100 Insulin] 100 unit/mL (3 mL) insulin pen 22 unit subcut QHS Primary Care Provider: Luzma Palencia Referrals: Luzma Palencia MD [Primary Care Provider] - 3-5 Days Activity Restrictions/Additional Instructions: Take your insulin dose tonight as scheduled Print Language: Divehi Disposition Disposition: Home, Self Care
[2025-01-25 22:14] VITALS: BP 140/72; PULSE 72; RESP 18; TEMP 36.6; O2SAT 97
== END 2025-01-25 22:14 | disposition home or self-care (01) ==
PROVIDERS: Emergency Provider Emergency Medicine; PCP Internal Medicine; Referring Provider Emergency Medicine; Visit Provider Emergency Medicine
DX: R00.2 Palpitations (principal); E10.65 Type 1 diabetes mellitus with hyperglycemia; Z79.4 Long term (current) use of insulin; I10 Essential (primary) hypertension; F41.9 Anxiety disorder, unspecified; G47.33 Obstructive sleep apnea (adult) (pediatric); E78.5 Hyperlipidemia, unspecified; Z79.899 Other long term (current) drug therapy; Z79.82 Long term (current) use of aspirin; Z87.891 Personal history of nicotine dependence; Z86.718 Personal history of other venous thrombosis and embolism
CPT/HCPCS: 80048; 82962; 99284; A4216

== ENCOUNTER → 2025-04-02 | Outpatient (CLI) | payer MEDICARE, SELFPAY ==
--- NOTE | 2025-04-02 08:44 | BI_ITS ---
EXAM: SCRN MAMM (CAD)W/MINAL BILAT DATE: 04/02/2025 CLINICAL HISTORY: F, Age 79 y/o , SCREENING TECHNIQUE: Procedure Code: [id number] Modality: MG Procedure: SCRN MAMM (CAD)W/MINAL BILAT COMPARISON: Prior exam(s) were compared FINDINGS: TISSUE DENSITY: The breasts are heterogeneously dense, which may obscure small masses. Bilateral Breast Mammographic Findings: No suspicious masses, calcifications or other abnormalities are identified. BI/SCRN MAMM (CAD)W/MINAL BILAT IMPRESSION: No mammographic evidence of malignancy. OVERALL FINAL ASSESSMENT BI-RADS 1: NEGATIVE. RECOMMENDATION: Routine annual follow-up in 1 Year A letter with findings and recommendations will be mailed to the patient. Reading Location: [id number]
== END | disposition home or self-care (01) ==
LOC: OPBI 08:43
PROVIDERS: PCP Internal Medicine; Referring Provider Internal Medicine; Visit Provider Internal Medicine
DX: Z12.31 Encounter for screening mammogram for malignant neoplasm of breast (principal)
CPT/HCPCS: 77063; 77067

== ENCOUNTER 2025-04-04 19:34 | Emergency (ER) | payer MEDICARE, SELFPAY ==
[2025-04-04 19:35] VITALS: BP 156/60; PULSE 55; RESP 16; TEMP 36.6; O2SAT 96
--- NOTE | 2025-04-04 20:02 | EKG12_ITS ---
Test Reason : DYSRHYTHMIA Blood Pressure : */* mmHG Vent. Rate : 64 BPM Atrial Rate : 64 BPM P-R Int : 116 ms QRS Dur : 86 ms QT Int : 426 ms P-R-T Axes : 59 22 43 degrees QTcB Int : 439 ms Normal sinus rhythm with sinus arrhythmia Normal ECG Confirmed by NAYANA JOSE, KARRI ([id number]), pictures editor RHONDA BRADFORD ([id number]) on 04/05/2025 10:48:26 AM Referred By: CHATA Confirmed By: KARRI KRAUS MD
[2025-04-04 20:22] VITALS: BMI 41.1
[2025-04-04 20:35] VITALS: BP 136/66; PULSE 66; RESP 14; O2SAT 98
--- OUTSIDE RECORDS SUMMARY | 2025-04-04 20:36 | XMS RPT_ITS | CCD ---
Author Organization [facility] Care Team Providers Care Rural 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 Name Role Phone Lydia Cook Unavailable Unavailable [...] Dr. Vazquez Harvey Emergency Provider Dr. Tawanda Herrnig Attending Provider Unavailable Dr. Tawanda Herring Admit Provider Unavailable Dr. Tawanda Herring Other Provider Unavailable Dr. Jer Escobedo Attending Provider Dr. Jer Escobedo Other Provider Dr. Mark Leong Emergency Provider Dr. Krystian Sandoval Provider Dr. [...] Dr. Octavio Reza Referring Provider Herb LOWRY, ALEN Shoemaker Attending Provider Dr. Vazquez Harvey Emergency Provider Dr. Tawanda Herring Attending Provider Unavailable Dr. Tawanda Herring Admit Provider Unavailable Dr. Tawanda Herring Other Provider Unavailable Dr. Jer Escobedo Attending Provider Dr. Jer Escobedo Other Provider Dr. Mrak Leong Emergency Provider Dr. Krystian Sandoval Admit Provider Dr. Krystian Sandoval Attending Provider Dr. Krystian Sandoval Other Provider Dr. Mei Garcia Attending Provider Dr. Mei Garcia Other Provider Dr. Floresita Howe Other Provider Dr. Jayden Alberto Attending Provider Dr. Jayden Alberto Referring Provider Dr. Jesus Kessler Emergency Provider Malik, Dr. Daisy Sykes Admit Provider Kornatanael, Dr. Daisy Sykes Other Provider Dr. Zay Escalera Attending Provider Dr. Zay Escalera Other Provider Dr. Octavio Reza Primary Care Provider Slime, Dr. Octavio Zapata Primary Care Provider Slime, Dr. Octavio Zapata Referring Provider Herb LOWRY, ALEN Shoemaker Attending Provider Dr. Lenin Michaels Attending Provider Slime, Dr. Octavio Zapata Primary Care Provider Slime, Dr. Octavio Zapata Primary Care Provider Dr. Eliza Cool Attending Provider Hien, Dr. Butts Referring Provider Slime, Dr. Octavio Zapata Referring Provider [facility] FOLDER MACHINE ADJUSTER, FOLDER MACHINE ADJUSTER-Sourav Rowe Attending Provider TAMIKA MORRIS Referring Unavailable OCTAVIO REZA Primary Care Unavailable Octavio Reza MD Primary Care Provider [place] [facility], Charis Unavailable Clinton RN, Federica Rabago Unavailable Cioce SANDSTONE SPLITTER.LOCKER ATTENDANT, Renetta C Unavailable Clinton RN, Federica Rabago Unavailable Grande SANDSTONE SPLITTER.COMMUNITY DEVELOPMENT COORDINATOR, Lydia Unavailable Narda SANDSTONE SPLITTER.LOCKER ATTENDANT, Davon Unavailable Narda SANDSTONE SPLITTER.LOCKER ATTENDANT, Davon Monica Unavailable Narda SANDSTONE SPLITTER.LOCKER ATTENDANT, Davon Unavailable Dr. Octavio Reza MD Primary Care Provider Dr. Reyna Monzon DO Attending Provider Dr. Reyna Monzon DO Emergency Provider [phone] Lars Dahl DO Attending Provider Hesham SANDERS, Dr. Sousa Referring Provider Hesham SANDERS, Dr. Sousa Emergency Provider Areli Gauthier Attending Provider Areli Gauthier Referring Provider Dr. Miguel Angel Bosch MD Attending Provider Areli Gauthier Other Provider [phone] Ashwini JOSE, Dr. Bell Attending Provider Slime JOSE, Dr. Octavio Zapata Referring Provider [facility], Dr. Clark Attending Provider [facility] DO, Dr. Clark Emergency Provider [place] DO, Dr. Lino Emergency Provider Slime JOSE, Dr. Octavio Zapata Primary Care Provider [phone] Dahl , Dr. Sousa Attending Provider Hesham SANDERS, Dr. Sousa Referring Provider Hesham SANDERS, Dr. Sousa Emergency Provider Areli Gauthier Attending Provider Areli Gauthier Referring Provider Dr. Miguel Angel Bosch MD Attending Provider Areli Gauthier Other Provider [phone] Ashwini JOSE, Dr. Bell Attending Provider Na SANDERS, Dr. Orellana Attending Provider Dr. Reyna Monzon DO Emergency Provider Slime JOSE, Dr. Octavio Zapata Referring Provider [facility] , Dr. Clark Attending Provider [facility], Dr. Clark Emergency Provider Dr. Holland Sanches DO Emergency Provider Viral JOSE, Dr. Cintron Emergency Provider Narda SANDSTONE SPLITTER.LOCKER ATTENDANT, Davon Unavailable Sliem JOSE, Dr. Octavio Zapata Primary Care Provider [...] Dr. Octavio Reza MD Primary Care Provider Hesham SANDERS, Dr. Sousa Attending Provider Hesham SANDERS, Dr. Sousa Emergency Provider Dr. Zay Juan DO Attending Provider Dr. Octavio Reza MD Referring Provider Herb LOWRY, Areli Shoemaker Attending Provider Serg Solis MD Emergency Provider Harjinder SANDSTONE SPLITTER.COMMUNITY DEVELOPMENT COORDINATOR, Lydia Unavailable Dr. Alex Gan MD Attending [...] Zapata Referring Provider Areli Gauthier Attending Provider Will JOSE, Serg Attending Provider Serg Solis MD Emergency Provider Jae Lacey Attending Provider Slime JOSE, Dr. Octavio Zapata Primary Care Provider Dr. Holland Sanches DO Attending Provider Verónica SANDERS, Dr. Lino Emergency Provider Viral JOSE, Dr. Cintron Attending Provider [phone] Viral JOSE, Dr. Cintron Emergency Provider Jesus MCDONALD-Jae Benjamin Attending Provider Jonathan JOSE, Dr. Flores Referring Provider Dr. Mark Leong MD Emergency Provider DAVON WOLFE Attending Unavailable TALAMPAS, OCTAVIO D Primary Care Unavailable SELF Referring Unavailable TALAMPAS, OCTAVIO D Primary Care Unavailable TALAMPAS, OCTAVIO D Attending Unavailable DAVON WOLFE Attending Unavailable TALAMPAS, OCTAVIO D Primary Care Unavailable TALAMPAS, OCTAVIO D Primary Care Unavailable TALAMPAS, OCTAVIO D Referring Unavailable TALAMPAS, OCTAVIO D Primary Care Unavailable TALAMPAS, OCTAVIO D Primary Care Unavailable KAYLI, ARLEEN M Referring Unavailable MATTIEOCERENETTA Attending Unavailable TALAMPAS, OCTAVIO D Primary Care Unavailable SERGO PEREZ Attending Unavailable TALAMPAS, OCTAVIO D Primary Care Unavailable TALAMPAS, OCTAVIO D Primary Care Unavailable TALAMPAS, OCTAVIO D Attending Unavailable TALAMPAS, OCTAVIO D Primary Care Unavailable MATTIEOCEALYSSAE C Referring Unavailable TALAMPAS, OCTAVIO D Primary Care Unavailable TALAMPAS, OCTAVIO D Primary Care Unavailable LYDIA GRANDE Attending Unavailable TALAMPAS, OCTAVIO D Primary Care Unavailable TALAMPAS, OCTAVIO D Primary Care Unavailable TALAMPAS, OCTAVIO D Referring Unavailable TALAMPAS, OCTAVIO D Primary Care Unavailable TALAMPAS, OCTAVIO D Attending Unavailable JESSEERENETTA Attending Unavailable TALAMPAS, OCTAVIO D Primary Care Unavailable SELF Referring Unavailable TALAMPAS, OCTAVIO D Primary Care Unavailable TALAMPAS, OCTAVIO D Attending Unavailable SERGO PEREZ Attending Unavailable TALAMPAS, OCTAVIO D Primary Care Unavailable SERGO PEREZ Attending Unavailable MATTIEOCEALYSSAE Soruav Referring Unavailable TALAMPAS, OCTAVIO D Primary Care Unavailable ARLEEN MILAN M Referring Unavailable TALAMPAS, OCTAVIO D Primary Care Unavailable TALAMPAS, OCTAVIO D Primary Care Unavailable TALAMPAS, OCTAVIO D Referring Unavailable ARLEEN MILAN M Attending Unavailable TALAMPAS, OCTAVIO D Primary Care Unavailable TALAMPAS, OCTAVIO D Primary Care Unavailable MATTIEOCEALYSSAE Sourav Attending Unavailable TALAMPAS, OCTAVIO D Primary Care Unavailable TALAMPAS, OCTAVIO D Referring Unavailable TALAMPAS, OCTAVIO D Primary Care Unavailable TALAMPAS, OCTAVIO D Primary Care Unavailable SMILEY PRIETO Referring Unavailable TALAMPAS, OCTAVIO D Primary Care Unavailable TALAMPAS, OCTAVIO D Primary Care Unavailable TALAMPAS, OCTAVIO D Primary Care Unavailable TALAMPAS, OCTAVIO D Primary Care Unavailable Jae Lee Attending Unavailable Talampas, Octavio D Primary Care Unavailable Talampas, Octavio D Referring Unavailable Talampas, Octavio D Primary Care Unavailable Zay Juan Attending Unavailable Talampas, Octavio D Primary Care Unavailable Benjamín Stanford Attending Unavailable Talampas, Octavio D Primary Care Unavailable Abdulaziz Stratton Attending Unavailable Talampas, Octavio D Primary Care Unavailable Serg Solis Attending Unavailable Talampas, Octavio D Primary Care Unavailable Miguel Angel Bosch Attending Unavailable Areli Gauthier Referring Unavail able Talampas, Octavio D Primary Care Unavailable Talampas, Octavio D Referring Unavailable Areli Gauthier Attending Unavail able Talampas, Octavio D Primary Care Unavailable Talampas, Octavio D Referring Unavailable Miguel Angel Bosch Attending Unavailable Talampas, Octavio D Primary Care Unavailable Areli Gauthier Attending Unavail able Areli Gauthier Referring Unavail able Talampas, Octavio D Primary Care Unavailable Talampas, Octavio D Referring Unavailable Talampas, Octavio D Attending Unavailable Talampas, Octavio D Primary Care Unavailable Leong, Mark Referring Unavailable Leong, Mark Attending Unavailable Talampas, Octavio D Primary Care Unavailable Zay Juan Attending Unavailable Lars Dahl Referring Unavailable Lars Dahl Attending Unavailable Talampas, Octavio D Primary Care Unavailable Reyna Monzon Attending Unavailable Talampas, Octavio D Primary Care Unavailable Talampas, Octavio D Primary Care Unavailable Areli Gauthier Attending Unavail able Areli Gauthier Referring Unavail able Talampas, Octavio D Primary Care Unavailable Abdulaziz Stratton Attending Unavailable Talampas, Octavio D Primary Care Unavailable Holland Sanches Attending Unavailable Reyna Monzon Attending Unavailable Talampas, Octavio D Primary Care Unavailable Holland Sanches Attending Unavailable Talampas, Octavio D Primary Care Unavailable Talampas, Octavio D Primary Care Unavailable Leong, Mark Attending Unavailable Lars Dahl Attending Unavailable Talampas, Octavio D Primary Care Unavailable Ray Maradiaga Attending Unavailable Talampas, Octavio D Primary Care Unavailable Areli Gauthier Consulting Unavail able Areli Gauthier Referring Unavail able Holland Sanches Attending Unavailable Talampas, Octavio D Primary Care Unavailable Lars Dahl Attending Unavailable Talampas, Octavio D Primary Care Unavailable Talampas, Octavio D Primary Care Unavailable Eduardo Paz Attending Unavailabl e Allergies Allergy Classification Reported Allergen(s) Allergy Type Date of Onset Reaction(s) Facility Acetaminophen / Codeine (2 sources) Acetaminophen / Codeine Drug Allergy 005 Vomiting [facility] Albuterol (2 sources) Albuterol Drug Allergy 014 GI Upset, Vomiting [facility] Work Phone: aMILoride / hydroCHLOROthiazide (2 sources) aMILoride / hydroCHLOROthiazide Drug Allergy 011 Other: See Comments [facility] Doxycycline (2 sources) Doxycycline Drug Allergy 023 GI Upset [facility] Lysine (2 sources) Lysine Drug Allergy 023 Itching [facility] NSAIDs (2 sources) Naproxen Drug Allergy 005 GI Upset [facility] Work Phone: Oseltamivir (2 sources) Oseltamivir Drug Allergy 024 Mental Status Change [facility] Serotonin Reuptake Inhibitors (SSRIs) (2 sources) Escitalopram Drug Allergy 013 Intolerance [facility] (20 sources) codeine; Translations: [codeine] drug allergy 012 nausea/vomit ing, Nausea [facility] Work Phone: [phone] (6 sources) NKA drug allergy 012 [facility] Work Phone: [phone] (20 sources) Acetaminophen / Codeine; Translations: [ACETAMINOPHEN-CODEIN E] Drug Allergy 005 Vomiting [facility] Work Phone: (20 sources) Albuterol; Translations: [ALBUTEROL SULFATE] Drug Allergy 014 GI Upset, Vomiting [facility] Work Phone: [phone] (20 sources) aMILoride / hydroCHLOROthiazide; Translations: [AMILORIDE-HYDROCHLOR OTHIAZIDE] Drug Allergy 011 Other: See Comments [facility] Work Phone: [phone] (20 sources) atorvastatin; Translations: [ATORVASTATIN] Drug Allergy 015 Myalgia [facility] Work Phone: [phone] (20 sources) Escitalopram; Translations: [ESCITALOPRAM] Drug Allergy 013 Intolerance [facility] Work Phone: [phone] (20 sources) Naproxen; Translations: [NAPROXEN] Drug Allergy 005 GI Upset [facility] Work Phone: (20 sources) Pravastatin; Translations: [PRAVASTATIN] Drug Allergy 017 GI Upset [facility] Work Phone: (20 sources) rosuvastatin; Translations: [ROSUVASTATIN] Drug Allergy 021 Intolerance [facility] Work Phone: (20 sources) Simvastatin; Translations: [SIMVASTATIN] Drug Allergy 017 Myalgia [facility] Work Phone: (5 sources) Albuterol Drug Allergy nausea, vomiting [facility] Work Phone: (20 sources) hydroCHLOROthiazide Drug Allergy Other [facility] (20 sources) Mxlzqye-Krp-Jro Reductase Inhibitor; Translations: [Rubludf-Pwd-Xsb Reductase Inhibitor] Propensity to adverse reactions myalgias [facility] (20 sources) Doxycycline; Translations: [DOXYCYCLINE] Drug Allergy 023 GI Upset [facility] Work Phone: (20 sources) Amoxicillin Drug Allergy Other [facility] Comment on above: palpitations (20 sources) Clavulanate Drug Allergy Other [facility] Comment on above: palpitations (4 sources) Acetaminophen Drug Allergy dystonia [facility] (19 sources) Amiodarone Drug Allergy Swelling [facility] Comment on above: SOB (19 sources) amLODIPine Drug Allergy 024 Abd cramps/diarr hea [facility] Comment on above: states she went into a.fib felt awful (4 sources) Ascorbic Acid Drug Allergy Itching [facility] (19 sources) [place] fruit Allergy to substance Hives [facility] (19 sources) desloratadine Drug Allergy headache [facility] (19 sources) Glutamine Drug Allergy Itching [facility] (19 sources) HYDROcodone Drug Allergy 03-01-2 024 dystonia [facility] (19 sources) HYDROmorphone Drug Allergy Anaphylaxis [facility] Comment on above: sob (20 sources) Lysine; Translations: [lysine HCl] Drug Allergy Itching [facility] (19 sources) Morphine Drug Allergy 024 confusion [facility] (19 sources) moxifloxacin Drug Allergy Shortness of breath [facility] (19 sources) nabumetone Drug Allergy damaged kidney [facility] (19 sources) Penicillin G Drug Allergy TURNS BLUE [facility] (19 sources) Propoxyphene Drug Allergy PT UNSURE OF REACTION [facility] (19 sources) traMADol Drug Allergy Anaphylaxis [facility] (20 sources) herbal complex no.124; Translations: [herbal complex no.124] Allergy to substance Itching [facility] (20 sources) multivitamin with minerals; Translations: [multivitamin with minerals] Allergy to substance Itching [facility] (20 sources) Oseltamivir; Translations: [OSELTAMIVIR] Drug Allergy 024 Mental Status Change [facility] (20 sources) HMG-CoA reductase inhibitor; Translations: [VEBLYUO-LNP-SVL REDUCTASE INHIBITORS] Drug Intolerance 021 Myalgia [facility] (20 sources) Lysine; Translations: [LYSINE] Drug Allergy 023 Itching [facility] (1 source) Amiodarone Drug Allergy [facility] (1 source) amLODIPine Drug Allergy [facility] (1 source) Amoxicillin Drug Allergy [facility] (1 source) Clavulanate Drug Allergy [facility] (1 source) desloratadine Drug Allergy [facility] (1 source) Escitalopram Drug Allergy [facility] (1 source) Glutamine Drug Allergy [facility] (1 source) hydroCHLOROthiazide Drug Allergy [facility] (1 source) HYDROcodone Drug Allergy [facility] (1 source) HYDROmorphone Drug Allergy [facility] (1 source) Morphine Drug Allergy [facility] (1 source) moxifloxacin Drug Allergy [facility] (1 source) nabumetone Drug Allergy [facility] (1 source) Naproxen Drug Allergy [facility] (1 source) Oseltamivir Drug Allergy [facility] (1 source) Penicillin Drug Allergy [facility] (1 source) Pravastatin Drug Allergy [facility] (1 source) Propoxyphene Drug Allergy [facility] (1 source) rosuvastatin Drug Allergy [facility] (1 source) Simvastatin Drug Allergy [facility] (1 source) traMADol Drug Allergy [facility] (1 source) [place] And Derivatives Drug allergy (disorder) [facility] Rep[facility] Medications Current Medications Medication Drug Class(es) Dates Sig (Normalized) Sig (Original) ACCU-CHEK GUIDE GLUCOSE METER (10 sources) Start: 02-06-2025 End: 02-06-2026 ACCU-CHEK GUIDE GLUCOSE METER 1 each four times daily. 1 each 02/06/2025 02/06/2026 Active [id number] 200 actuat albuterol 0.09 mg/actuat metered dose [...] times daily as needed for sob 8.5 0 July 14, 2022 3:20pm November 28, 2023 [...] July 14, 2022 3:21pm Start: 12-03-2019 End: 11-28-2023 Start: 12-03-2019 End: 07-14-2022 take 1 puff(s) by inhalation every six hours Albuterol Sulfate (Ventolin Hfa) 90 mcg/actuation HFA aerosol inhaler Discontinued 2 PUFF INHALATION EVERY 6 HOURS December 03, 2019 12:00am July 14, 2022 3:21pm Comment on above: Inhale 2 Puffs as in structed four times daily as needed. FOR WHEEZING AND SHORTNESS OF BREATH. amLODIPine 2.5 mg oral tablet (20 sources) Dihydropyridine Calcium Channel Ariella Start: End: take 2 tablets by mouth once daily in the morning, then take 1 tablet by mouth once daily in the evening amLODIPine (NORVASC) 2.5 mg tablet Take 2 tablets by mouth every morning AND 1 tablet every evening. 90 tablet 2 01/29/2025 04/29/2025 Active Start: 01-29-2025 End: 01-29-2025 take 0.5 tablet by mouth once daily in the morning amLODIPine (NORVASC) 10 mg tablet Take 0.5 tablets by mouth once daily. (Jae Lee sent prescription to take 10 mg daily) Taking 0.5 tablet po in the am and 0.25 tablet in the pm 45 tablet 01/29/2025 01/29/2025 Discontinued Start: 01-15-2025 End: 01-29-2025 take 1 tablet by mouth once daily amLODIPine (NORVASC) 10 mg tablet Take 1 tablet by mouth once daily. (Jae Lee sent prescription to take 10 mg daily) 01/15/2025 01/29/2025 Discontinued Start: 01-14-2025 take 1 tablet by julito th twice daily Amlodipine 10 mg tablet Active 10 mg PO TWICE A DAY January 14, 2025 11:01am Start: 01-14-2025 End: 01-14-2025 take 1 tablet by mouth once daily Amlodipine 10 mg tablet Discontinued 10 mg PO DAILY January 14, 2025 11:00am January 14, 2025 11:02am Start: 10-01-2023 End: 01-14-2025 take 5 mg by mouth once daily Amlodipine 10 mg tablet Discontinued 5 mg PO DAILY October 01, 2023 12:00am January 14, 2025 11:01am Start: 10-01-2023 take 5 mg by mouth [...] 17, 2022 11:40pm October 01, 2023 3:23pm BLOOD PRESSURE Comment on above: Take 5 mg by [...] 24, 2017 12:00am November 15, 2024 8:35am [facility] Start: 03-01-2012 take 1 tablet by julito th once daily ASPIRIN 81 MG TABS One tablet by mouth daily ASPIRIN [id number] Rosette Villarreal RN Start: 03-01-2012 take 1 tablet by julito th once daily ASPIRIN EC 81 MG TBEC One tablet by mouth daily ASPIRIN [id number] Bettina Vaca RN Comment on above: Take 1 tablet by julito th once daily. Take 1 tablet by julito th two times a day. benzonatate 100 mg oral capsule (20 sources) Non-narcotic Antitussive Start: 04-18-20 24 End: 01-16-20 25 take 1 capsule by [...] 2 NMA INHALATION TWICE A DAY 10.2 0 March 02, 2024 12:00am May 25, 2024 5:51am Start: 03-02-2024 End: 05-25-2024 Start: 03-02-2024 End: [...] instructed two times a day. 1 Each 06/15/2023 09/22/2023 Discontinued Start: 06-15-2023 take 2 puff(s) by in halation twice daily budesonide-formoterol (SYMBICORT) 160-4.5 mcg/actuation inhaler Inhale 2 Puffs as instructed two times a day. 1 Each 5 06/15/2023 Active Start: 08-17-2022 End: 06-14-2023 take 2 puff(s) by inhalation twice daily budesonide-formoterol (SYMBICORT) 160-4.5 mcg/actuation inhaler Inhale 2 Puffs as instructed twice daily. 1 Each 08/17/2022 06/14/2023 Discontinued Start: 08-17-2022 take 2 [...] TWICE A DAY December 21, 2021 12:00am ASTHMA Start: 12-21-2021 Start: 12-21-2021 Budesonide-For moterol 160-4.5 [...] Puffs as instructed twice daily. 1 Each 04/30/2021 12/16/2021 Discontinued Start: 04-30-2021 take 2 puff(s) by in halation twice daily budesonide-formoterol (SYMBICORT) 160-4.5 mcg/actuation inhaler Inhale 2 Puffs as instructed twice daily. 1 Each 04/30/2021 Active Start: 01-22-2021 End: 12-21-2021 Start: [...] inhale 1 puff twice daily BUDESONIDE-FORMOTEROL FUMARATE [id number] Bettina Vaca RN Start: 10-12-2013 SYMBICORT 160- 4.5 MCG/ACT AERO as directed BUDESONIDE-FORMOTEROL FUMARATE [id number] Areli Estevez PA-C Comment on above: Inhale 2 Puffs as in structed twice daily. Inhale 2 Puffs as in structed two times a day. busPIRone hydrochloride 5 mg oral tablet (12 sources) Start: 01-30-20 take 1 tablet by mouth every eight hours as needed for anxiety and anxiety busPIRone (BUSPAR) 5 mg tablet Indications: Anxiety Take 1 tablet by mouth three times a day as needed (anxiety). 90 tablet 2 01/29/2025 Active chlorhexidine gluconate 1.2 mg/ml mouthwash (20 sources) [...] Active Start: 12-03-2019 take 1 capsule by [facility] every week Cholecalciferol (Vitamin D3) 1,250 mcg (50,000 unit) capsule Active 1250 ug PO EVERY WEEK December 03, 2019 12:00am SUPPLEMENT Comment on above: Take 1 capsule by [facility] one time a week. dexamethasone 6 mg oral tablet (1 source) Corticosteroid Start: 07-24-19 take 6 mg by mouth once daily Dexamethasone Active 6 MG PO DAILY 7 July 24, 2022 12:00am furosemide 20 mg oral tablet (20 sources) Loop Diuretic Start: 01-23-20 End: 11-16-19 take 1 tablet by mouth once daily as needed furosemide (LASIX) 20 mg tablet Take 1 tablet by mouth once daily as needed. 90 tablet 3 03/01/2023 Active Start: 01-22-2021 End: 11-15-2024 Comment on above: Take 1 tablet by [facility] once daily as needed. 0.2 ml glucagon [...] pen injector (20 sources) Insulin Analogue Start: 01-15-20 Insulin Glargine (Lantus Solostar U-100 Insulin) 100 unit/mL (3 mL) insulin pen Active 22 U SC AT BEDTIME January 14, 2025 10:10am Start: 12-18-2024 End: 02-28-2025 insulin glargine (LANTUS NICKIE OSTAR U-100 INSULIN) 100 unit/mL (3 mL) Inject 22 units once daily 21 mL 3 02/28/2025 Active Start: 10-31-2024 End: 12-18-2024 insulin glargine (LANTUS NICKIE OSTAR U-100 INSULIN) 100 unit/mL (3 mL) Inject 24 units once daily 27 mL 3 10/31/2024 12/18/2024 Discontinued (Adjust Sig - Block E-Cancel) Start: 06-19-2024 End: 10-31-2024 insulin glargine (LANTUS NCIKIE OSTAR U-100 INSULIN) 100 unit/mL (3 mL) Inject 22 units once daily 06/19/2024 10/31/2024 Discontinued Start: 06-13-2024 End: 01-14-2025 Insulin Glargine (Lantus Nickie ostar U-100 Insulin) 100 unit/mL (3 mL) insulin pen Discontinued 24 U SC AT BEDTIME June 13, 2024 3:15pm January 14, 2025 10:12am 20-26u Start: 06-13-2024 End: 01-14-2025 Start: 05-23-2024 End: 06-19-2024 insulin glargine (LANTUS [...] Basaglar per patient preference 5 Each 11 11/11/2023 11/21/2023 Discontinued (Adjust Sig - Block E-Cancel) Start: 11-07-2023 End: 06-13-2024 Insulin Glargine (Lantus Nickie ostar U-100 Insulin) 100 unit/mL (3 mL) insulin pen Discontinued 20 U SC AT BEDTIME November 07, 2023 12:00am June 13, 2024 3:16pm Start: 11-07-2023 End: 06-13-2024 inject 30 [IU] by subcutaneous injection once daily at bedtime insulin glargine 100 unit/mL (3 mL) Inject 30 Units subcutaneously daily at bedtime. Give Lantus, not Basaglar per patient preference 5 Each 11 12/07/2023 03/12/2024 Discontinued Start: 11-07-2023 Insulin Glargi ne (Insulin Glargine [...] 22, 2022 11:49am July 20, 2022 11:26am DM Start: 01-11-2022 End: 02-28-2023 inject 27 [IU] [...] 22, 2021 10:54am June 22, 2022 11:51am DM Start: 01-19-2019 End: 07-20-2022 inject 20-25 [IU] by subcutaneous injection at bedtime Insulin Glargine 100 UNIT/ML insulin pen Discontinued 20 - 25 U SQ AT BEDTIME January 19, 2019 12:00am January 22, 2021 11:03am DM Start: 01-19-2019 End: 01-11-2022 inject 20-25 [IU] by subcutaneous injection at bedtime Insulin Glargine Discontinued 20 - 25 UNIT SQ AT BEDTIME January 19, 2019 12:00am January 22, 2021 11:03am Start: 12-16-2016 End: 12-04-2018 Insulin Glargine 100 UNIT/ML solution Discontinued 22 U SC AT BEDTIME December 16, 2016 12:00am December 04, 2018 2:15pm Start: 12-16-2016 End: 12-04-2018 Start: 03-06-2016 End: 03-11-2016 inject 22 [IU] by subcutaneous injection at bedtime Insulin Glargine (Lantus) 100 UNIT/ML Ml Discontinued 22 U SQ AT BEDTIME March 06, 2016 12:00am March 11, 2016 2:28pm Start: 03-06-2016 End: 03-11-2016 Start: 03-01-2012 LANTUS 100 UNI T/ML SOLN as directed INSULIN GLARGINE [id number] Chris Lott MD Start: 03-01-2012 LANTUS 100 UNI T/ML SOLN take at bedtime as instructed INSULIN GLARGINE [id number] Rosette Villarreal RN Comment on above: Inject 27 [...] 31, 2022 11:18pm Start: 07-24-2022 End: 07-31-2022 Start: 07-24-2022 End: [...] U SC THREE TIMES DAILY BEFORE MEALS 0 March 11, 2016 12:00am April 21, 2016 11:08pm Start: 03-11-2016 End: 04-21-2016 Start: 03-01-2012 take 10 [IU] by subc utaneous injection three times daily NOVOLOG 100 UNIT/ML SOLN 10 units sq three times a day INSULIN ASPART [id number] Bettina Vaca RN Comment on above: INJECT [...] mg PO Q12H October 01, 2023 12:00am heart rate, BP Start: 10-01-2023 take 25 mg by mouth [...] 25 mg PO TWICE A DAY 180 3 February 12, 2021 1:58pm July 17, 2022 11:40pm HEART Start: 01-22-2021 End: 02-12-2021 Metoprolol Tartrate 50 mg ta blet Discontinued 25 mg PO TWICE A DAY January 22, 2021 11:43am February 12, 2021 1:59pm HEART Start: 01-22-2021 End: 02-12-2021 take 25 mg by mouth twice daily Metoprolol Tartrate Di scontinued 25 MG PO TWICE A DAY January 22, 2021 11:43am February 12, 2021 1:59pm Start: 12-03-2019 End: 01-22-2021 take 1 tablet by mouth in the evening Metoprolol Tartrate 50 mg tablet Discontinued 50 mg PO .COMPLEX December 03, 2019 2:15pm January 22, 2021 11:43am HEART 50 mg PO 1 tab in the am and one half tab in the pm; Start: 01-19-2019 End: 12-03-2019 take 1 tablet by mouth once daily Metoprolol Tartrate 50 MG tablet Discontinued 50 mg PO DAILY January 19, 2019 12:00am December 03, 2019 2:19pm HEART Start: 01-19-2019 End: 12-03-2019 Metoprolol Tartrate 50 MG ta blet Discontinued 25 mg PO DAILY January 19, 2019 12:00am December 03, 2019 2:16pm HEART Start: 01-19-2019 End: 02-12-2021 Start: 01-19-2019 End: 12-03-2019 take 25 mg [...] March 11, 2016 2:28pm Start: 03-06-2016 End: 11-24-2017 Start: 03-01-2012 End: 12-16-2016 take 1 tablet by mouth twice daily Metoprolol Tartrate 50 MG tablet Discontinued 50 mg PO TWICE A DAY 30 0 April 21, 2016 11:09pm December 16, 2016 12:31am Comment on above: Take 1/2 tablet by out twice a day mometasone furoate 1 mg/ml topical cream (20 sources) Corticosteroid Start: 06-13-2024 Mometasone 0.1 % cream Active 1 NMA TOPICAL daily as needed for skin irritation June 13, 2024 1:00am Start: 01-17-2023 End: [...] mg PO DAILY June 22, 2022 1:00am GERD Start: 12-23-2021 End: 02-15-2022 take 1 tablet by mouth twice daily before mealtime Omeprazole Magnesium (PRILOSEC OTC) 20 mg tablet Take 1 tablet by mouth twice daily. 1/2 hr before meal. 0 12/23/2021 02/15/2022 Discontinued Start: 03-06-2016 End: 12-03-2019 take 1 capsule by mouth twice daily Omeprazole 20 MG capsule Discontinued 20 mg PO TWICE A DAY January 19, 2019 8:14pm December 03, 2019 2:19pm GERD Start: 03-06-2016 End: 06-22-2022 take 1 capsule by mouth once daily Omeprazole 20 mg capsule,delayed release(DR/EC) Discontinued 20 mg PO DAILY December 03, 2019 2:16pm June 22, 2022 11:50am GERD Start: 10-12-2013 take 1 tablet by julito twice daily PRILOSEC OTC 20 MG TBEC One tablet by mouth twice daily OMEPRAZOLE MAGNESIUM [id number] Areli Estevez PA-C Start: 07-09-2013 End: 07-09-2013 Prilosec Discontinued Decemb er 2012 12:00am July 09, 2013 10:44am Start: 07-09-2013 End: 07-09-2013 Prilosec Discontinued [facility] 2012 1:00am July 09, 2013 11:44am Start: 03-23-2013 PRILOSEC OTC 2 0 MG TBEC .12 OMEPRAZOLE MAGNESIUM [id number] Chris Lott MD Start: 03-01-2012 End: 11-15-2012 take 1 tablet by mouth twice daily OMEPRAZOLE 20 MG CPDR One tablet by mouth twice daily OMEPRAZOLE [id number] Rosette Villarreal RN Comment on above: Take 1 capsule by mo uth once daily. Take 1 tablet by julito twice daily. 1/2 hr before meal. QUEtiapine 25 mg oral tablet (1 source) Atypical Antipsychotic Start: take 12.5 mg by mouth at bedtime [...] One tablet by mouth twice daily RAMIPRIL [id number] Rosette Villarreal RN Comment on above: Take 1 capsule by mo uth twice daily. Take 1 capsule by mo uth two times a day. zolpidem tartrate 5 [...] 22, 2021 11:03am Start: 10-12-2013 End: 01-22-2021 take 1 tablet by mouth at bedtime as needed Zolpidem 5 MG tablet Discontinued 5 mg PO AT BEDTIME NEEDED as needed for Insomnia 14 0 April 21, 2016 12:00am January 19, 2019 8:15pm Start: 10-12-2013 AMBIEN 10 MG T ABS as needed ZOLPIDEM TARTRATE [id number] PAZ BradfordC Comment on above: Take 0.5-1 tablets b [...] for Pain 1-10 Or Fever >100.7 0 0 August 02, 2022 1:00am June 13, 2024 3:16pm Start: 08-02-2022 take 2 tablets by [facility] every six hours as needed Acetaminophen (Tylenol) 325 mg Tablet Active 650 MG PO EVERY 6 HOURS NEEDED 0 August 02, 2022 1:00am Start: 03-11-2016 End: 04-21-2016 Acetaminophen (Tylenol) 325 MG tablet Discontinued 650 mg PO EVERY 6 HOURS NEEDED as needed for Mild Pain (scale 0-3)/T>100.7 0 0 March 11, 2016 12:00am April 21, 2016 11:06pm Start: 03-11-2016 End: 04-21-2016 Start: 03-11-2016 End: 04-21-2016 take 2 tablets [...] HOURS NEEDED as needed for Severe Pain () March 11, 2016 12:00am April 21, 2016 11:08pm Start: 03-11-2016 End: 04-21-2016 Start: 03-11-2016 End: 04-21-2016 take 1 tablet [...] 22, 2022 12:59pm Start: 08-02-2022 End: 11-22-2022 Start: 08-02-2022 End: 11-22-2022 take 1 tablet by mouth twice daily Amoxicillin-Pot Clavulanate Discontinued 1 TABLET PO TWICE A DAY August 02, 2022 1:00am November 22, 2022 12:59pm Comment on above: Take 1 tablet by julito th twice daily for 10 days. apixaban 5 mg oral tablet (5 sources) Factor Xa Inhibitor Start: 11-20-19 End: 11-23-19 take 1 tablet by mouth twice daily ELIQUIS 5 MG TABS One tablet by mouth twice daily APIXABAN [id number] Bettina Vaca RN cefdinir 300 mg oral [...] on above: Take 1 capsule by mo [facility] four times daily for 7 days. [...] 22, 2021 11:42am February 12, 2021 1:58pm heart Start: 03-06-2016 End: 01-22-2021 take 1 capsule by mouth twice daily Diltiazem Hcl 180 MG capsule Discontinued 180 mg PO TWICE A DAY March 06, 2016 12:00am January 22, 2021 11:43am heart Start: 03-01-2012 take 1 tablet by [facility] twice daily CARDIZEM CD 180 MG [id number] One tablet by mouth twice daily DILTIAZEM HCL COATED BEADS [id number] Rosette Villarreal RN docusate sodium 100 mg oral [...] Discontinued 240 mg PO TWICE A DAY 0 March 11, 2016 12:00am April 21, 2016 11:08pm doxycycline monohydrate 100 mg oral capsule (20 sources) Tetracycline-class Drug Start: 10-11-2022 End: 11-22-2022 take 1 capsule by mouth twice daily Doxycycline Monohydrate 100 mg capsule Discontinued 100 mg PO TWICE A DAY 14 0 October 11, 2022 12:00am November 22, 2022 12:59pm Start: 08-28-2013 End: 11-24-2013 take 1 tablet by mouth twice daily Doxycycline Hyclate 100 MG tablet Discontinued 100 mg PO TWICE A DAY August 28, 2013 1:00am November 24, 2013 4:02pm ergocalciferol 1.25 mg oral capsule (20 sources) Provitamin D2 Compound Start: 01-19-2019 End: 12-03-2019 Ergocalciferol (Vitamin D2) 50,000 UNIT capsule Discontinued 36217 U PO SA January 19, 2019 8:14pm December 03, 2019 2:13pm SUPPLEMENT Start: 04-21-2016 End: 12-03-2019 Ergocalciferol (Vitamin D2) 50,000 UNIT capsule Discontinued 38748 U PO Q7D@1700 2 0 April 21, 2016 12:00am January 19, 2019 8:15pm Start: 11-15-2012 take 1 tablet by julito th once daily VITAMIN D (ERGOCALCIFEROL) 62837 UNIT CAPS One tablet by mouth daily ERGOCALCIFEROL [id number] Chris Lott MD esomeprazole 40 mg injection (6 sources) Proton Pump Inhibitor Start: 11-15-2012 End: 03-23-2013 take 1 tablet by mouth once daily NEXIUM 40 MG CPDR One tablet by mouth daily ESOMEPRAZOLE MAGNESIUM [id number] Chris Lott MD 72 hr fentaNYL 0.025 mg/hr transdermal system (20 sources) Opioid Agonist Start: 03-11-2016 End: 04-21-2016 Fentanyl 25 MCG patch Discontinued 25 ug TRANSDERM. Every 3 Days 5 0 March 11, 2016 12:00am April 21, 2016 11:08pm Start: 03-11-2016 End: 04-21-2016 flash glucose sensor (FREESTYLE RAISSA 2 SENSOR) kit (20 sources) Start: 09-22-2022 End: 02-06-2025 flash glucose sensor (FREEST YLE RAISSA 2 SENSOR) kit Indications: 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) , Type 1 diabetes mellitus on insulin therapy (HCC) Apply new sensor every fourteen (14) days to upper arm. 6 Each 4 09/22/2022 02/06/2025 Discontinued (Other) Start: 09-22-2022 flash glucose sensor (FREESTYLE RAISSA 2 SENSOR) kit Indications: 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) , Type 1 diabetes mellitus on insulin therapy (HCC) Apply new sensor every fourteen (14) days to upper arm. 6 Each 4 09/22/2022 Active Comment on above: Apply new sensor maggie ry fourteen (14) days to upper arm. fluconazole 100 mg oral tablet (20 sources) Azole Antifungal Start: 2 End: 2 fluconazole (DIFLUCAN) 100 mg tablet Indications: Oral thrush , Intertrigo Take 2 tablets on day 1, then 1 tablet for 3 days. 5 tablet 0 07/27/2021 02/15/2022 Discontinued Comment on above: Take 2 tablets on da y 1, then 1 tablet for 3 days. fluticasone propionate 0.05 mg/actuat metered dose nasal spray (15 sources) Corticosteroid Start: 1 End: 2 take 1 spray(s) nasal route once daily fluticasone (FLONASE) 50 mcg/actuation nasal spray Indications: Post-nasal drip Use 1 [place] in each nostril once daily. 1 Each 3 07/02/2021 12/23/2021 Discontinued Comment on above: Use 1 [place] in each nostril once daily. fluticasone / salmeterol (20 sources) Corticosteroid, beta2-Adrenergic Agonist Start: 4 End: 4 take 1 puff(s) by mouth twice daily fluticasone-salmeter ol (ADVAIR DISKUS) 100-50 mcg/dose inhaler Inhale 1 [...] 03, 2019 2:13pm January 22, 2021 11:03am asthma Start: 12-03-2019 End: 01-22-2021 Start: 12-03-2019 End: [...] 19, 2019 12:00am December 03, 2019 2:19pm asthma Start: 01-19-2019 End: 12-03-2019 Start: 01-19-2019 End: [...] Insuln.Pen Discontinued 20 U SC EVERY MORNING 0 March 11, 2016 12:00am April 21, 2016 11:07pm Start: 03-11-2016 End: 04-21-2016 Insulin Detemir U-100 (Levem ir Flextouch U100 Insulin) 100 UNITS/ML Insuln.Pen Discontinued 25 U SC AT BEDTIME March 11, 2016 12:00am April 21, 2016 11:08pm Start: 03-11-2016 End: 04-21-2016 Start: 03-11-2016 End: [...] 15 units sq twice daily INSULIN DETEMIR [id number] Bettina Vaca RN Insulin Glargine-Yfgn (1 source) Start: 08-02-2022 End: 11-28-2023 Insulin Glargine-Yfgn Discontinued 24 UNIT SC TWICE A DAY August 02, 2022 1:35pm November 28, 2023 9:37pm Insulin Glargine-Yfgn 100 unit/mL (3 mL) insulin pen (10 sources) Start: 08-02-2022 End: 11-28-2023 Insulin Glargine-Yfgn [...] 28, 2023 9:37pm Start: 11-07-2023 End: 11-28-2023 Start: 11-07-2023 End: [...] 22, 2021 12:00am August 02, 2022 1:34pm DIABETES Start: 09-01-2020 End: 01-22-2021 Insulin Nph Isoph U-100 Susan n 100 unit/mL suspension Discontinued 12 U SC DAILY September 01, 2020 2:06pm January 22, 2021 10:59am DM Start: 01-19-2019 End: 08-02-2022 inject 10 [IU] by subcutaneous injection once daily Insulin Nph Isoph U-100 Human 100 UNIT/ML suspension Discontinued 10 U SQ DAILY January 19, 2019 12:00am September 01, 2020 2:09pm DM Start: 03-06-2016 End: 03-11-2016 inject 15 [IU] by subcutaneous injection once daily Insulin Nph Isoph U-100 Human (Humulin N Vial) 100 UNIT/ML Ml Discontinued 15 U SQ DAILY March 06, 2016 12:00am March 11, 2016 2:28pm Start: 03-06-2016 End: 03-11-2016 Comment on above: Inject 15-20 Units s [...] DAILY WITH MEALS June 22, 2022 11:50am dm Please contact the information source for Protocol [...] 2016 12:00am January 22, 2021 10:58am Start: 12-16-2016 End: 01-22-2021 Start: 03-06-2016 End: 03-11-2016 inject 6 [IU] by subcutaneous injection three times daily at mealtime Insulin Lispro (Humalog) 100 UNIT/ML Ml Discontinued 6 U SQ 3 TIMES DAILY WITH MEALS March 06, 2016 12:00am March 11, 2016 2:27pm Start: 03-01-2012 HUMALOG 100 UN IT/ML SOLN as directed INSULIN LISPRO (HUMAN) [id number] Chris Lott MD Start: 03-01-2012 HUMALOG 100 UN IT/ML SOLN Take as directed INSULIN LISPRO (HUMAN) [id number] Rosette Villarreal RN Start: 03-01-2012 End: 07-21-2015 HUMALOG 100 UNIT/ML SOLN Thiago e as directed INSULIN LISPRO (HUMAN) [id number] Chris Lott MD Comment on above: INJECT [...] on above: Take 1 capsule by mo [facility] once daily. Lactobacillus acidophilus (20 sources) Start: 01-22-2021 End: 06-22-2021 Lactobacillus Acidophilus Discontinued 32730 MMU CELLS PO DAILY January 21, 2021 11:00pm June 22, 2021 11:26am Start: 01-22-2021 End: 06-22-2021 Lactobacillus Acidophilus Di scontinued 07343 MMU CELLS PO DAILY January 22, 2021 12:00am June 22, 2021 12:26pm Lactobacillus Acidophilus 10 billion cell capsule (10 sources) Start: 01-22-2021 End: 06-22-2021 Lactobacillus Acidophilus 10 billion cell capsule Discontinued 85883 NMA PO DAILY January 22, 2021 12:00am June 22, 2021 12:26pm Start: 01-22-2021 End: 06-22-2021 Lactobacillus Acidophilus 10 billion cell capsule Discontinued 45933 NMA PO DAILY January 21, 2021 11:00pm [...] 1 tablet by julito th once daily. for pain. Take with food. nitrofurantoin 100 mg oral tablet (10 sources) Nitrofuran Antibacterial Start: 06-13-2024 End: 11-15-2024 take 1 capsule by mouth twice daily at mealtime Nitrofurantoin 100 mg capsule Discontinued 100 mg PO TWICE A DAY June 13, 2024 1:00am November 15, 2024 8:33am must administer with a meal/food INSULIN ISOPHANE HUMAN SUSP (3 sources) Start: 03-01-2012 HUMULIN N SUSP take as directed INSULIN ISOPHANE HUMAN SUSP [id number] Rosette Villarreal RN Nut.Tx.Gluc Intol,Lf,Soy-Fiber (Glucerna 1.2 Will) [...] MEALS 0 August 02, 2022 12:00am nystatin 477297 unt/ml oral suspension (15 sources) Polyene Antifungal [...] tablet by mouth daily POLYSACCHARIDE IRON COMPLEX [id number] Chris Lott MD Start: 11-19-2016 take 1 tablet by julito once daily FERREX 150 150 MG CAPS One tablet by mouth daily POLYSACCHARIDE IRON COMPLEX [id number] Bettina Vaca RN pravastatin sodium 10 mg [...] 1:05pm Start: 11-22-2016 take 0.5 tablet by out once daily PRAVASTATIN SODIUM 10 MG TABS 1/2 tablet by mouth daily PRAVASTATIN SODIUM [id number] Chris Lott MD rivaroxaban 10 mg oral tablet (20 sources) Factor Xa Inhibitor Start: 03-11-2016 End: 04-21-2016 take 1 tablet by mouth once daily Rivaroxaban (Xarelto) 10 MG tablet Discontinued 10 mg PO DAILY 1 March 11, 2016 12:00am April 21, 2016 [...] 2016 12:00am November 24, 2017 1:02pm Start: 03-06-2016 End: 11-24-2017 Start: 03-01-2012 take 0.5 tablet by m outh at bedtime SIMVASTATIN 10 MG TABS 1/2 tablet (5 mg ) by mouth at bedtime (STOP) SIMVASTATIN [id number] Chris Lott MD Start: 03-01-2012 take 1 tablet by julito th at bedtime ZOCOR 10 MG TABS One tablet by mouth at bedtime. SIMVASTATIN [id number] Rosette Villarreal RN sulfamethoxazole 800 mg / trimethoprim 160 mg oral tablet (11 sources) Dihydrofolate Reductase Inhibitor Antibacterial, Sulfonamide Antimicrobial Start: 06-08-2024 End: 06-13-2024 Sulfamethoxazole-Trimethopri m (Bactrim Ds) 800-160 mg tablet Discontinued 1 {tbl} PO TWICE A DAY 13 7 0 June 08, 2024 1:00am June 13, 2024 3:14pm Start: 06-08-2024 End: 06-13-2024 traMADol hydrochloride 50 mg oral tablet (5 sources) Opioid Agonist Start: 11-19-2016 End: 11-22-2016 take 1 tablet by mouth every six hours as needed TRAMADOL HCL 50 MG TABS One tablet by mouth q 6 hours as needed TRAMADOL HCL [id number] Bettina Vaca RN (6 sources) Start: 06-13-2024 [...] sources) Anxiety state; Translations: [Generalized anxiety disorder] Onset: 5 08-19-2020 Chronic Asthma (20 sources) Asthma; Translations: [Unspecified asthma, uncomplicated] Onset: 4 05-06-2014 Chronic Cardiac dysrhythmias (20 sources) Ventricular premature beats; Translations: [Paroxysmal supraventricular tachycardia] Onset: 2 03-15-2012 Chronic Cardiac dysrhythmias (20 sources) Palpitations; Translations: [Palpitations] Onset: 3 Episodic Chronic obstructive pulmonary disease and bronchiectasis (20 [...] [Type 2 diabetes mellitus without complications] Onset: 6 02-11-2022 Chronic Diabetes mellitus without complication (20 sources) Hyperglycemia; Translations: [Hyperglycemia, unspecified] 10-28-2023 Episodic Disorders of lipid metabolism (20 sources) Hyperlipidemia; Translations: [Hyperlipidemia, unspecified] Onset: 2 03-01-2012 Chronic Disorders of teeth and jaw (1 source) Dental abscess; Translations: [Periapical abscess without sinus] 05-07-2024 Episodic Esophageal disorders (20 sources) Gastroesophageal reflux disease; Translations: [Gastro-esophageal reflux disease without esophagitis] Onset: 6 12-16-2005 Chronic Essential hypertension (20 sources) Hypertensive disorder; Translations: [Essential hypertension] Onset: 6 03-01-2012 Chronic Fluid and electrolyte disorders (20 sources) Acute hypokalemia; Translations: [Hypokalemia] Episodic Genitourinary symptoms and ill-defined conditions (1 source) Other microscopic hematuria; Translations: [Microscopic hematuria] Onset: 5 Episodic Heart valve disorders (20 sources) Mitral [...] episodes] Onset: 3 12-16-2005 Chronic Noninfectious gastroenteritis (11 sources) Enteritis of small intestine; Translations: [Noninfective [...] circulatory system] 02-19-2022 Episodic Other circulatory disease (19 sources) History of cardiac arrhythmia; Translations: [Personal [...] Onset: 4 Episodic Other connective tissue disease (8 sources) Trochanteric bursitis; Translations: [Trochanteric bursitis, unspecified hip] 10-19-2024 Episodic Other connective tissue disease (8 sources) Thigh pain; Translations: [Pain in left thigh] 10-19-2024 Episodic Other diseases of veins and lymphatics [...] [Diarrhea, unspecified] 09-26-2024 Episodic Other gastrointestinal disorders (20 sources) Diarrhea; Translations: [Diarrhea, unspecified] 09-20-2024 Episodic Other gastrointestinal disorders (1 source) Constipation; Translations: [Constipation, unspecified] 10-15-2024 Episodic Other gastrointestinal disorders (1 source) Slow transit constipation; Translations: [Slow transit constipation] 01-29-2025 Episodic Other gastrointestinal disorders (1 source) Slow transit constipation; Translations: [Slow transit constipation] Onset: Episodic Other hematologic conditions (1 source) [...] injuries and conditions due to external causes (7 sources) Contusion; Translations: [Other injury of unspecified [...] Episodic Other nervous system disorders (3 sources) Indjiqb-Dwmzc-Yflah disease; Translations: [Hereditary motor and sensory neuropathy] [...] Chronic Other nutritional; endocrine; and metabolic disorders (4 sources) Severe obesity; Translations: [Morbid (severe) obesity [...] Chronic Other nutritional; endocrine; and metabolic disorders (18 sources) H/O: diabetes mellitus; Translations: [Personal history of other endocrine, nutritional and metabolic disease] 12-15-2023 Episodic Other nutritional; endocrine; and metabolic disorders (9 sources) History of diabetes mellitus type 2; [...] [Idiopathic sleep related nonobstructive alveolar hypoventilation] Onset: 09-22-2023 Chronic Residual codes; unclassified (1 source) History of delirium; Translations: [Personal history of other specified conditions] 02-21-2023 Episodic Residual codes; unclassified (1 source) Face goes red; Translations: [Flushing] 03-19-2025 Episodic Residual codes; unclassified (1 source) Flushing; Translations: [Facial flushing] Onset: 5 Episodic Unclassified (1 source) Class 3 severe [...] Translations: [Acute cough] Onset: 4 Viral infection (10 sources) COVID-19; Translations: [Pneumonia due to other virus not elsewhere classified] Episodic Past or Other Problems Problem Classification Problem Date Documented Date Episodic/Chronic Conditions associated with dizziness or vertigo (12 sources) Lightheadedness; Translations: [Dizziness and giddiness] Onset: 07-03-20 24 12-15-2023 Episodic Deficiency and other anemia (1 source) Anemia, unspecified; Translations: [Anemia, unspecified type] Onset: 10-02-19 25 Episodic E Codes: Adverse effects of medical drugs (20 sources) HMG COA reductase inhibitor adverse reaction; Translations: [Adverse effect of antihyperlipidemic and antiarteriosclerotic drugs, initial encounter] Onset: 06-07-20 22 06-07-2022 Episodic Malaise and fatigue (20 sources) Asthenia; Translations: [Other malaise] Onset: 10-01-19 10 09-30-2009 Episodic Other connective tissue disease (1 source) Pain in left thigh; Translations: [Pain in left thigh] Onset: 11-08-19 Episodic Other connective tissue disease (1 source) Pain in left leg; Translations: [Pain in left leg] Onset: 10-25-19 Episodic Other gastrointestinal disorders (1 source) Diarrhea, [...] : 05-11-2005-11-2021 Chronic Other upper respiratory infections (19 sources) Acute upper respiratory infection; Translations: [Acute [...] hypoxia] Onset: 11-13-19 Resolved : 03-07-20 Episodic Superficial injury; contusion (7 sources) Contusion of left thigh; Translations: [Contusion of left thigh, initial encounter] Onset: 10-30-19 25 11-03-2024 Episodic Unclassified (1 source) Patient encounter status 03-13-2025 Urinary tract infections (14 sources) Acute cystitis; Translations: [Acute cystitis without hematuria] Onset: 06-28-20 24 06-11-2024 Episodic Results Test Name Value Interpretation Reference Range Facility SCRN MAMM (CAD)W/MINAL BILATo n 04-02-2025 SCRN MAMM (CAD)W/MINAL BILAT Normal [facility] CNPNon 03-29-2025 CNPN Normal [facility] Urinalysis complete panel (U )on 03-26-2025 Bacteria LM.HPF (Urine sed) [#/Area] Negative Normal Negative [facility] Comment on above: Order Comment: Speci men Type: URINE SPECIMENOrdering Facility: [facility] Address: [address] [place] [address] Performed By: #### 2 4356-8 ####[facility] LABCLIA [id number] [place] [address] [place] Bilirubin Ql (U) Negative Normal Negative [facility] Comment on above: Order Comment: Speci men Type: URINE SPECIMENOrdering Facility: [facility] Address: [address] [place] [address] Performed By: #### 2 4356-8 ####[facility] LABCLIA [id number] [place] [address] [place] Clarity (Unsp spec) Clear Normal Clear [facility] Comment on above: Order Comment: Speci men Type: URINE SPECIMENOrdering Facility: [facility] Address: [address] [place] [address] Performed By: #### 2 4356-8 ####[facility] LABCLIA [id number] [place] [address] [place] Color (U) Yellow Normal Yellow [facility] Comment on above: Order Comment: Speci men Type: URINE SPECIMENOrdering Facility: [facility] Address: [address] [place] [address] Performed By: #### 2 4356-8 ####[facility] LABCLIA [id number] [address], [place] [address] [place] Epithelial cells LM.HPF (Urine sed) [#/Area] None Seen Normal [facility] Comment on above: Order Comment: Speci men Type: URINE SPECIMENOrdering Facility: [facility] Address: [address] [place] [address] Performed By: #### 2 4356-8 ####[facility] LABCLIA [id number] [place] [address] [place] Glucose Test strip (U) [Mass/Vol] Negative Normal Negative [facility] Comment on above: Order Comment: Speci men Type: URINE SPECIMENOrdering Facility: [facility] Address: [address] [place] [address] Performed By: #### 2 4356-8 ####[facility] LABCLIA [id number] [place] [address] [place] Hemoglobin Ql (U) Negative Normal Negative [facility] Comment on above: Order Comment: Speci men Type: URINE SPECIMENOrdering Facility: [facility] Address: [address] [place], [place] [address] Performed By: #### 2 4356-8 ####[facility] LABCLIA [id number] [place] [address] [place] Hyaline casts (Urine sed) [#/Area] 0 /[LPF] Normal 0 /LPF [facility] Comment on above: Order Comment: Speci men Type: URINE SPECIMENOrdering Facility: [facility] Address: [address] [place] [address] Performed By: #### 2 4356-8 ####[facility] LABCLIA [id number] [place] [address] [place] Ketones Ql (U) Negative Normal Negative [facility] Comment on above: Order Comment: Speci men Type: URINE SPECIMENOrdering Facility: [facility] Address: [address] [place] [address] Performed By: #### 2 4356-8 ####[facility] LABCLIA [id number] [place] [address] [place] Leukocyte esterase Test strip Ql (U) 1+ Abnormal Negative [facility] Comment on above: Order Comment: Speci men Type: URINE SPECIMENOrdering Facility: [facility] Address: [address] [place] [address] Performed By: #### 2 4356-8 ####[facility] LABCLIA [id number] [place] [address] [place] Nitrite Ql (U) Negative Normal Negative [facility] Comment on above: Order Comment: Speci men Type: URINE SPECIMENOrdering Facility: [facility] Address: [address] [place] [address] Performed By: #### 2 4356-8 ####[facility] LABIA [id number] [place] [address] [place] pH (U) 6.0 [pH] Normal 5.0-8.0 [facility] Comment on above: Order Comment: Speci men Type: URINE SPECIMENOrdering Facility: [facility] Address: [address] [place] [address] Performed By: #### 2 4356-8 ####[facility] LABCLIA [id number] [place] [address] [place] Protein (U) [Mass/Vol] Negative Normal Negative [facility] Comment on above: Order Comment: Speci men Type: URINE SPECIMENOrdering Facility: [facility] Address: [address] [place] [address] Performed By: #### 2 4356-8 ####[facility] LABIA [id number] [place] [address] [place] RBC LM.HPF (Urine sed) [#/Area] 0-2 /HPF Normal 0-2 /HPF [facility] Comment on above: Order Comment: Speci men Type: URINE SPECIMENOrdering Facility: [facility] Address: [address] [place] [address] Performed By: #### 2 4356-8 ####[facility] LABIA [id number] [place] [address] [place] Specific gravity (U) [Rel density] 1.015 Normal 1.005-1.030 [facility] Comment on above: Order Comment: Speci men Type: URINE SPECIMENOrdering Facility: [facility] Address: [address] [place] [address] Performed By: #### 2 4356-8 ####[facility] [id number] [place] [address] [place] Urobilinogen Ql (U) 0.2 EU/dL Normal 0.2-1.0 EU/dL [facility] Comment on above: Order Comment: Speci men Type: URINE SPECIMENOrdering Facility: [facility] Address: [address] [place] [address] Performed By: #### 2 4356-8 ####[facility] [id number] [place] [address] [place] WBC LM.HPF (Urine sed) [#/Area] 0-5 /HPF Normal 0-5 /HPF [facility] Comment on above: Order Comment: Speci men Type: URINE SPECIMENOrdering Facility: [facility] Address: [address] [place] [address] Performed By: #### 2 4356-8 ####[facility] LABIA [id number] [place] [address] [place] CNCNPATEDon 03-25-2025 CNCNPATED Normal [facility] CNPNon 03-22-2025 CNPN Normal [facility] Bacteria Ur Culton Bacteria identified Cx Nom (U) ORGANISM ID: 1 10,000 -<50,000 CFU/ml Normal urogenital lawanda Normal [facility] Comment on above: Performed By: #### 2 4356-8, 630-4 ####[facility] LABIA [id number] [address] STATES OF [facility] CBC panel Auto (Bld)on 03-19 Erythrocyte distribution width (RBC) [Ratio] 12.6 % 11.5 - 15.0 % [facility] Hematocrit (Bld) [Volume fraction] 38.9 % 36.0 - 46.0 % [facility] Hemoglobin (Bld) [Mass/Vol] 12.5 g/dL 11.5 - 15.5 g/dL [facility] Interpretation and review of laboratory results Abnormal [facility] MCH (RBC) [Entitic mass] 29.6 pg 26. 0 - 34.0 pg [facility] MCHC (RBC) [Mass/Vol] 32.1 g/dL 30.5 - 36.0 g/dL [facility] MCV (RBC) [Entitic vol] 92.0 fL 80.0 - 100.0 fL [facility] Nucleated RBC (Bld) [#/Vol] NINF [facility] Platelet mean volume (Bld) [Entitic vol] 13.0 fL High 9.0 - 12.7 fL [facility] Platelets (Bld) [#/Vol] 214 10*3/uL [facility] RBC (Bld) [#/Vol] 4.23 10*6/uL 3.90 - 5.2 0 m/uL [facility] WBC (Bld) [#/Vol] 5.95 10*3/uL [facility] Erythrocyte distribution width (RBC) [Ratio] 12.6 % Normal 11.5-15.0 [facility] Comment on above: Order Comment: Speci men Type: BLOOD SPECIMENOrdering Facility: [facility] Address: [address] [place] [address] Performed By: #### 5 8410-2 ####[facility] LABCLIA [id number] [address] Hematocrit (Bld) [Volume fraction] 38.9 % Normal 36.0-46.0 [facility] Comment on above: Order Comment: Speci men Type: BLOOD SPECIMENOrdering Facility: [facility] Address: [address] [place] [address] Performed By: #### 5 8410-2 ####[facility] LABIA [id number] [place] [address] [place] Hemoglobin (Bld) [Mass/Vol] 12.5 g/dL Normal 11.5-15.5 [facility] Comment on above: Order Comment: Speci men Type: BLOOD SPECIMENOrdering Facility: [facility] Address: [address] [place] [address] Performed By: #### 5 8410-2 ####[facility] LABIA [id number] [place] [address] [place] MCH (RBC) [Entitic mass] 29.6 pg Normal 26.0-34.0 [facility] Comment on above: Order Comment: Speci men Type: BLOOD SPECIMENOrdering Facility: [facility] Address: [address] [place] [address] Performed By: #### 5 8410-2 ####[facility] LABIA [id number] [place] [address] [place] MCHC (RBC) [Mass/Vol] 32.1 g/dL Normal 30.5-36.0 [facility] Comment on above: Order Comment: Speci men Type: BLOOD SPECIMENOrdering Facility: [facility] Address: [address] [place] [address] Performed By: #### 5 8410-2 ####[facility] LABIA [id number] [place] [address] [place] MCV (RBC) [Entitic vol] 92.0 fL Normal 80.0-100.0 C [facility] Comment on above: Order Comment: Speci men Type: BLOOD SPECIMENOrdering Facility: [facility] Address: [address] [place] [address] Performed By: #### 5 8410-2 ####[facility] LABCLIA [id number] [place] [address] [place] Nucleated RBC (Bld) [#/Vol] 10*3/uL Normal <0.01 [facility] Comment on above: Order Comment: Speci men Type: BLOOD SPECIMENOrdering Facility: [facility] Address: [address] [place] [address] Performed By: #### 5 8410-2 ####[facility] LABCLIA [id number] [place] [address] [place] Platelet mean volume (Bld) [Entitic vol] 13.0 fL High 9.0-12.7 [facility] Comment on above: Order Comment: Speci men Type: BLOOD SPECIMENOrdering Facility: [facility] Address: [address] [place] [address] Performed By: #### 5 8410-2 ####[facility] LABCLIA [id number] [place] [address] [place] Platelets (Bld) [#/Vol] 214 10*3/uL Normal 150-400 [facility] Comment on above: Order Comment: Speci men Type: BLOOD SPECIMENOrdering Facility: [facility] Address: [address] [place] [address] Performed By: #### 5 8410-2 ####[facility] LABCLIA [id number] [place] [address] [place] RBC (Bld) [#/Vol] 4.23 10*6/uL Normal 3.90-5.20 [facility] Comment on above: Order Comment: Speci men Type: BLOOD SPECIMENOrdering Facility: [facility] Address: [address] [place] [address] Performed By: #### 5 8410-2 ####[facility] LABCLIA [id number] [place] [address] [place] WBC (Bld) [#/Vol] 5.95 10*3/uL Normal 3.70-11.00 [facility] Comment on above: Order Comment: Speci men Type: BLOOD SPECIMENOrdering Facility: [facility] Address: [address] [place] [address] Performed By: #### 5 8410-2 ####[facility] LABCLIA [id number] [place] [id number] [place] CNOVon 03-19-2025 CNOV Normal [facility] Comprehensive metabolic 2000 panelon 03-19-2025 Albumin [Mass/Vol] 3.9 g/dL 3.9 - 4.9 g/dL [facility] ALP [Catalytic activity/Vol] 77 U/L 34 - 123 U/L [facility] ALT [Catalytic activity/Vol] 15 U/L 7 - 38 U/L [facility] Anion gap [Moles/Vol] 11 mmol/L 8 - 15 mmol/L [facility] AST [Catalytic activity/Vol] 22 U/L 13 - 35 U/L [facility] Bilirubin [Mass/Vol] 0.7 mg/dL 0.2 - 1 .3 mg/dL [facility] Calcium [Mass/Vol] 9.4 mg/dL 8.5 - 10. 2 mg/dL [facility] Chloride [Moles/Vol] 103 mmol/L 98 - 10 7 mmol/L [facility] CO2 [Moles/Vol] 26 mmol/L 22 - 30 mmol/L [facility] Creatinine [Mass/Vol] 0.76 mg/dL 0.58 - 0.96 mg/dL [facility] GFR/1.73 sq M.predicted among non-blacks MDRD (S/P/Bld) [Vol rate/Area] 80 mL/min/{1.73_m2} - PINF [facility] Comment on above: Estimated Glomerular Filtration Rate (eGFR) is calculated using the 2020 CKD-EPI creatinine equation. This equation utilizes serum creatinine, sex, and age as parameters. The creatinine assay has traceable calibration to isotope dilution-mass spectrometry. Refer to KDIGO guidelines for clinical interpretation. In patients with unstable renal function, e.g. those with acute kidney injury, the eGFR may not accurately reflect actual GFR. Glucose [Mass/Vol] 133 mg/dL High 74 - 99 mg/dL [facility] Comment on above: The [place] Diab[employer] Association (ADA) provides guidance for cutoff values for fasting glucose and random glucose. The ADA defines fasting as no caloric intake for at least 8 hours. Fasting plasma glucose results between 100 to 125 mg/dL indicate increased risk for diabetes (prediabetes). Fasting plasma glucose results greater than or equal to 126 mg/dL meet the criteria for diagnosis of diabetes. In the absence of unequivocal hyperglycemia, results should be confirmed by repeat testing. In a patient with classic symptoms of hyperglycemia or hyperglycemic crisis, random plasma glucose results greater than or equal to 200 mg/dL meet the criteria for diagnosis of diabetes. Reference: Standards of Medical Care in Diabetes 2016, [place] [employer] Association. Diabetes Care. 2016.39(Suppl 1). Interpretation and review of laboratory results Abnormal [facility] Potassium [Moles/Vol] 4.4 mmol/L 3.7 - 5.1 mmol/L [facility] Protein [Mass/Vol] 6.6 g/dL 6.3 - 8.0 g/dL [facility] Sodium [Moles/Vol] 140 mmol/L 136 - 144 mmol/L [facility] Urea nitrogen [Mass/Vol] 23 mg/dL High 7 - 21 mg/dL [facility] Albumin [Mass/Vol] 3.9 g/dL Normal 3.9-4.9 [facility] Comment on above: Order Comment: Speci men Type: BLOOD SPECIMENOrdering Facility: [facility] Address: [address] [place] [address] Performed By: #### 3 -3, ####[facility] LABCLIA [id number] [place] [address] [place] ALP [Catalytic activity/Vol] 77 U/L Normal 34-123 [facility] Comment on above: Order Comment: Speci men Type: BLOOD SPECIMENOrdering Facility: [facility] Address: [address] [place] [address] Performed By: #### 3 -3, ####[facility] LABCLIA [id number] [facility] [id number] [address] [place] ALT [Catalytic activity/Vol] 15 U/L Normal 7-38 [facility] Comment on above: Order Comment: Speci men Type: BLOOD SPECIMENOrdering Facility: [facility] Address: [address] [place] [address] Performed By: #### 3 016-3, ####[facility] LABCLIA [id number] [facility] [place] [address] [place] [address] [place] Anion gap [Moles/Vol] 11 mmol/L Normal 8-15 [facility] Comment on above: Order Comment: Speci men Type: BLOOD SPECIMENOrdering Facility: [facility] Address: [address] [place] [address] Performed By: #### 3 3, ####[facility] LABCLIA [id number] [address] [place] [address] [place] AST [Catalytic activity/Vol] 22 U/L Normal 13-35 [facility] Comment on above: Order Comment: Speci men Type: BLOOD SPECIMENOrdering Facility: [facility] Address: [address] [place], [place] [address] Performed By: #### 3 0163, ####[facility] LABCLIA [id number] [facility] [address] [place] [address] [place] Bilirubin [Mass/Vol] 0.7 mg/dL Normal 0.2-1.3 [facility] Comment on above: Order Comment: Speci men Type: BLOOD SPECIMENOrdering Facility: [facility] Address: [address] [place], [place] [address] Performed By: #### 3 016-3, ####[facility] LABCLIA [id number] [address] [place] [address] [place] Calcium [Mass/Vol] 9.4 mg/dL Normal 8.5-10.2 [facility] Comment on above: Order Comment: Speci men Type: BLOOD SPECIMENOrdering Facility: [facility] Address: [address] [place] [address] Performed By: #### 3 016-3, ####[facility] LABCLIA [id number] [facility] SERVICESLID AVENUEDESK [id number] [place], [place] [address] [place] Chloride [Moles/Vol] 103 mmol/L Normal 98-107 [facility] Comment on above: Order Comment: Speci men Type: BLOOD SPECIMENOrdering Facility: [facility] Address: [address] [place] [address] Performed By: #### 3 016-3, ####[facility] LABCLIA [id number] [facility] [place] [id number] [place] CO2 [Moles/Vol] 26 mmol/L Normal 22-30 [facility] Comment on above: Order Comment: Speci men Type: BLOOD SPECIMENOrdering Facility: [facility] Address: [address] [place], [place] [address] Performed By: #### 3 016-3, ####[facility] LABCLIA [id number] [facility] [place] [id number] [place] Creatinine [Mass/Vol] 0.76 mg/dL Normal 0.58-0.96 [facility] Comment on above: Order Comment: Speci men Type: BLOOD SPECIMENOrdering Facility: [facility] Address: [address] [place], [place] [address] Performed By: #### 3 016-3, ####[facility] LABCLIA [id number] [facility] [id number] [place] eGFRcr SerPlBld CKD-EPI 2020 80 mL/min/1.73m??? Normal >=60 [facility] Comment on above: Order Comment: Speci men Type: BLOOD SPECIMENOrdering Facility: [facility] Address: [address] [place] [address] Result Comment: Judith mated Glomerular Filtration Rate [...] accurately reflect actual GFR. Performed By: #### 3 016-3, 34172-4 ####[facility] LABIA [id number] [place] [address] [place] Glucose [Mass/Vol] 133 mg/dL High 74-99 [facility] Comment on above: Order Comment: Specjennifer men Type: BLOOD SPECIMENOrdering Facility: [facility] Address: [address] [place] [address] Result Comment: The [place] Diabetes Association (ADA) provides guidance for cutoff [...] Standards of Medical Care in Diabetes 2016, [place] [employer]. Diabetes Care. 2016.39(Suppl 1). Performed By: #### 3 016-3, 36826-7 ####[facility] [id number] [place] [id number] [place] Potassium [Moles/Vol] 4.4 mmol/L Normal 3.7-5.1 [facility] Comment on above: Order Comment: Speci men Type: BLOOD SPECIMENOrdering Facility: [facility] Address: [address] [place] [address] Performed By: #### 3 016-3, ####[facility] LABCLIA [id number] [address] [place] [address] [place] Protein [Mass/Vol] 6.6 g/dL Normal 6.3-8.0 [facility] Comment on above: Order Comment: Speci men Type: BLOOD SPECIMENOrdering Facility: [facility] Address: [address] [place] [address] Performed By: #### 3 016-3, ####[facility] LABIA [id number] [address] [address] [place] Sodium [Moles/Vol] 140 mmol/L Normal 136-144 [facility] Comment on above: Order Comment: Speci men Type: BLOOD SPECIMENOrdering Facility: [facility] Address: [address] [place] [address] Performed By: #### 3 016-3, ####[facility] LABIA [id number] [place] [id number] [place] Urea nitrogen [Mass/Vol] 23 mg/dL High 7-21 [facility] Comment on above: Order Comment: Speci men Type: BLOOD SPECIMENOrdering Facility: [facility] Address: [address] [place] [address] Performed By: #### 3 016-3, 67150-9 ####[facility] LABIA [id number] [place] [id number] [place] THYROID STIMULATING HORMONEo n 03-19-2025 TSH Qn 1.140 m[IU]/L [facility] TSH Qnon 03-19-2025 Interpretation and review of laboratory results Normal [facility] TSH SerPl-aCncon 03-19-2025 TSH Qn 1.140 m[IU]/L Normal 0.270-4.200 [facility] Comment on above: Order Comment: Speci men Type: BLOOD SPECIMENOrdering Facility: [facility] Address: [address] [place] [address] Performed By: #### 3 016-3, 30388-6 ####[facility] LABCLIA [id number] [place] [address] [place] Urinalysis complete panel (U )on 03-19-2025 Bacteria LM.HPF (Urine sed) [#/Area] Negative Negative /HPF [facility] Bilirubin Ql (U) Negative Negative [facility] Clarity (Unsp spec) Clear Clear [facility] Color (U) Yellow Yellow [facility] Epithelial cells LM.HPF (Urine sed) [#/Area] None Seen /HPF [facility] Glucose Test strip (U) [Mass/Vol] Negative Negative [facility] Hemoglobin Ql (U) Negative Negative [facility] Hyaline casts (Urine sed) [#/Area] 0 /[LPF] 0 /LPF [facility] Interpretation and review of laboratory results Abnormal [facility] Ketones Ql (U) Trace Abnormal Negative [facility] Leukocyte esterase Test strip Ql (U) 2+ Abnormal Negative [facility] Nitrite Ql (U) Negative Negative [facility] pH (U) 6.0 [pH] 5.0 - 8.0 [facility] Protein (U) [Mass/Vol] Negative Negative [facility] RBC LM.HPF (Urine sed) [#/Area] 3-5 /HPF Abnormal 0-2 /HPF [facility] Specific gravity (U) [Rel density] 1.022 1.005 - 1.030 [facility] Urobilinogen Ql (U) 1.0 EU/dL 0.2-1.0 EU/dL [facility] WBC LM.HPF (Urine sed) [#/Area] 11-20 /HPF Abnormal 0-5 /HPF [facility] This test was developed and its performance characteristics determined by [facility]'s Amanuel JAltaf [facility] [place] (RT-PLMI). It has not been cleared or approved by the FDA. -[facility] is regulated under CLIA as qualified to perform high-complexity testing. This test is used for clinical purposes. It should not be regarded as investigational or for research. [facility] Bacteria LM.HPF (Urine sed) [#/Area] Negative Normal Negative [facility] Comment on above: Order Comment: Speci men Type: URINE SPECIMENOrdering Facility: [facility] Address: [address] [place], [place] [address] Performed By: #### 2 4356-8, 630-4 ####[facility] LABCLIA [id number] [address] [place] [address] [place] Bilirubin Ql (U) Negative Normal Negative [facility] Comment on above: Order Comment: Speci men Type: URINE SPECIMENOrdering Facility: [facility] Address: [address] [place] [address] Performed By: #### 2 4356-8, 630-4 ####[facility] LABCLIA [id number] [address], [facility]95 [place] Clarity (Unsp spec) Clear Normal Clear [facility] Comment on above: Order Comment: Speci men Type: URINE SPECIMENOrdering Facility: [facility] Address: [address] [place] [address] Performed By: #### 2 6-8, 630-4 ####[facility] LABCLIA [id number] [address], [facility]95 [place] Color (U) Yellow Normal Yellow [facility] Comment on above: Order Comment: Speci men Type: URINE SPECIMENOrdering Facility: [facility] Address: [address] [place], [place] [address] Performed By: #### 2 6-8, 630-4 ####[facility] LABCLIA [id number] [address], [facility]95 [place] Epithelial cells LM.HPF (Urine sed) [#/Area] None Seen Normal [facility] Comment on above: Order Comment: Speci men Type: URINE SPECIMENOrdering Facility: [facility] Address: [address] [place], [place] [address] Performed By: #### 2 4356-8, 630-4 ####[facility] LABCLIA [id number] [place] [id number] [place] Glucose Test strip (U) [Mass/Vol] Negative Normal Negative [facility] Comment on above: Order Comment: Speci men Type: URINE SPECIMENOrdering Facility: [facility] Address: [address] [place] [address] Performed By: #### 2 4356-8, 630-4 ####[facility] LABCLIA [id number] [place] [id number] [place] Hemoglobin Ql (U) Negative Normal Negative [facility] Comment on above: Order Comment: Speci men Type: URINE SPECIMENOrdering Facility: [facility] Address: [address] [place] [address] Performed By: #### 2 4356-8, 630-4 ####[facility] LABCLIA [id number] [address], [place] [address] [place] Hyaline casts (Urine sed) [#/Area] 0 /[LPF] Normal 0 /LPF [facility] Comment on above: Order Comment: Speci men Type: URINE SPECIMENOrdering Facility: [facility] Address: [address] [place] [address] Performed By: #### 2 4356-8, 630-4 ####[facility] LABCLIA [id number] [place] [address] [place] Ketones Ql (U) Trace Abnormal Negative [facility] Comment on above: Order Comment: Speci men Type: URINE SPECIMENOrdering Facility: [facility] Address: [address] [place] [address] Performed By: #### 2 4356-8, 630-4 ####[facility] LABCLIA [id number] [place] [address] [place] Leukocyte esterase Test strip Ql (U) 2+ Abnormal Negative [facility] Comment on above: Order Comment: Speci men Type: URINE SPECIMENOrdering Facility: [facility] Address: [address] [place], [place] [address] Performed By: #### 2 4356-8, 630-4 ####[facility] LABCLIA [id number] [address], [place] [address] [place] Nitrite Ql (U) Negative Normal Negative [facility] Comment on above: Order Comment: Speci men Type: URINE SPECIMENOrdering Facility: [facility] Address: [address] [place] [address] Performed By: #### 2 4356-8, 630-4 ####[facility] LABCLIA [id number] [address], [place] [address] [place] pH (U) 6.0 [pH] Normal 5.0-8.0 [facility] Comment on above: Order Comment: Speci men Type: URINE SPECIMENOrdering Facility: [facility] Address: [address] [place] [address] Performed By: #### 2 4356-8, 630-4 ####[facility] LABIA [id number] [address], [place] [address] [place] Protein (U) [Mass/Vol] Negative Normal Negative [facility] Comment on above: Order Comment: Speci men Type: URINE SPECIMENOrdering Facility: [facility] Address: [address] [place] [address] Performed By: #### 2 4356-8, 630-4 ####[facility] LABIA [id number] [address], [place] [address] [place] RBC LM.HPF (Urine sed) [#/Area] 3-5 /HPF Abnormal 0-2 /HPF [facility] Comment on above: Order Comment: Speci men Type: URINE SPECIMENOrdering Facility: [facility] Address: [address] [place] [address] Performed By: #### 2 4356-8, 630-4 ####[facility] LABIA [id number] [address], [place] [address] [place] Specific gravity (U) [Rel density] 1.022 Normal 1.005-1.030 [facility] Comment on above: Order Comment: Speci men Type: URINE SPECIMENOrdering Facility: [facility] Address: [address] [place] [address] Performed By: #### 2 4356-8, 630-4 ####[facility] LABCLIA [id number] [place] [address] [place] Urobilinogen Ql (U) 1.0 EU/dL Normal 0.2-1.0 EU/dL [facility] Comment on above: Order Comment: Speci men Type: URINE SPECIMENOrdering Facility: [facility] Address: [address] [place] [address] Performed By: #### 2 4356-8, 630-4 ####[facility] LABCLIA [id number] [place] [address] [place] WBC LM.HPF (Urine sed) [#/Area] 11-20 /HPF Abnormal 0-5 /HPF [facility] Comment on above: Order Comment: Speci men Type: URINE SPECIMENOrdering Facility: [facility] Address: [address] [place] [address] Performed By: #### 2 4356-8, 630-4 ####[facility] LABIA [id number] [place] [address] [place] CNPNon 03-12-2025 CNPN Normal [facility] CNPTOUTREACHon 03-07-2025 CNPTOUTREACH Normal [facility] CNPNon 02-28-2025 CNPN Normal [facility] CNOVon 02-06-2025 CNOV Normal [facility] CNPNon 01-30-2025 CNPN Normal [facility] CNOVon 01-29-2025 CNOV Normal [facility] Anion gap in Serum or Plasma Ordered By: Mark Leong on 01-25-2025 Anion gap [Moles/Vol] 13 mmol/L - [facility] BUN/creatinine ratioOrdered By: Mark Leong on 01-25-2025 Urea nitrogen/Creatinine [Mass ratio] 21.8 mg/mg High - [facility] Basic Metabolic Profile (BMP )on 01-25-2025 BUN/CRE 21.8 RATIO High 05-06 [facility] Comment on above: Performed By: #### L 500.2500 ####[facility] [address] [place], [address] Calcium [Mass/Vol] 9.1 mg/dL Normal 7.6-11.[address] [facility] Comment on above: Performed By: #### L 500.2500 ####[facility] [address] [place], [address] Chloride [Moles/Vol] 97 mmol/L Low 98-108 [facility] Comment on above: Performed By: #### L 500.2500 ####[facility] [address] [place], [address] CO2 [Moles/Vol] 23.3 mmol/L Normal 21.0-32.0 [facility] Comment on above: Performed By: #### L 500.2500 ####[facility] [address] [place], [address] Creatinine [Mass/Vol] 0.95 mg/dL Normal 0.70-1.20 [facility] Comment on above: Performed By: #### L 500.2500 ####[facility] [address] [place], [address] GAP 13 Normal - [facility] Comment on above: Performed By: #### L 500.2500 ####[facility] [address] [place], [address] GFR/1.73 sq M.predicted among non-blacks MDRD (S/P/Bld) [Vol rate/Area] 61 mL/min/{1.73_m2} Normal >60 [facility] Comment on above: Result Comment: mL/m in/1.73m2 CKD-EPI Creatinine Equation (2020) Performed By: #### L 500.2500 ####[facility] [address] [place], [address] Glucose [Mass/Vol] 295 mg/dL High 70-[address] [facility] Comment on above: Performed By: #### L 500.2500 ####[facility] [address] [place], [address] Potassium [Moles/Vol] 4.3 mmol/L Normal 3.3-5.1 [facility] Comment on above: Performed By: #### L 500.2500 ####[facility] [address] [place], [address] Sodium [Moles/Vol] 132 mmol/L Low 133-[address] [facility] Comment on above: Performed By: #### L 500.2500 ####[facility] [address] [place], [address] Urea nitrogen [Mass/Vol] 21 mg/dL High 4-19 [facility] Comment on above: Performed By: #### L 500.2500 ####[facility] [address] [place], [address] BUN Normal - [facility] Comment on above: Result Comment: DR. MARK LEONG ONLY NEEDED 1, THIS WAS A DUPLICATE PERABIGAIL IN ED. 01-25-25 @ 2155. LMARTELL Performed By: #### L 500.2500 ####[facility] [address] [place], [address] BUN/CRE Normal - [facility] Comment on above: Result Comment: DR. MARK LEONG ONLY NEEDED 1, THIS WAS A DUPLICATE PERABIGAIL IN ED. 01-25-25 @ 2155. LMARTELL Performed By: #### L 500.2500 ####[facility] [address] [place], [address] Calcium Normal 7.6-11.0 [facility] Comment on above: Result Comment: DR. MARK LEONG ONLY NEEDED 1, THIS WAS A DUPLICATE PERABIGAIL IN ED. 01-25-25 @ 5. LMARTELL Performed By: #### L 500.2500 ####[facility] [address] [place], [address] CL Normal 98-108 [facility] Comment on above: Result Comment: DR. MARK LEONG ONLY NEEDED 1, THIS WAS A DUPLICATE PERABIGAIL IN ED. 01-25-25 @ 5. LMARTELL Performed By: #### L 500.2500 ####[facility] [address] [place], [address] CO2 Normal 21.0-32.0 [facility] Comment on above: Result Comment: DR. MARK LEONG ONLY NEEDED 1, THIS WAS A DUPLICATE PERABIGAIL IN ED. 01-25-25 @ 2154. LMARTELL Performed By: #### L 500.2500 ####[facility] [address] [place], [address] CREAT,SERUM Normal 0.70-1.20 [facility] Comment on above: Result Comment: DR. MARK LEONG ONLY NEEDED 1, THIS WAS A DUPLICATE PERABIGAIL IN ED. 01-25-25 @ 5. LMARTELL Performed By: #### L 500.2500 ####[facility] [address] [place], [address] eGFR Normal >60 [facility] Comment on above: Result Comment: DR. MARK LEONG ONLY NEEDED 1, THIS WAS A DUPLICATE PERABIGAIL IN ED. 01-25-25 @ 2154. LMARTELL Performed By: #### L 500.2500 ####[facility] [address] [place], [address] GAP Normal 5-15 [facility] Comment on above: Result Comment: DR. MARK LEONG ONLY NEEDED 1, THIS WAS A DUPLICATE PERABIGAIL IN ED. 01-25-25 @ 5. LMARTELL Performed By: #### L 500.2500 ####[facility] [address] [place], [address] GLU Normal 70-99 [facility] Comment on above: Result Comment: DR. MARK LEONG ONLY NEEDED 1, THIS WAS A DUPLICATE PERABIGAIL IN ED. 01-25-25 @ 5. LMARTELL Performed By: #### L 500.2500 ####[facility] [address] [place], [address] Potassium Normal 3.3-5.1 [facility] Comment on above: Result Comment: DR. MARK LEONG ONLY NEEDED 1, THIS WAS A DUPLICATE PERABIGAIL IN ED. 01-25-25 @ 2154. LMARTELL Performed By: #### L 500.2500 ####[facility] [address] [place], [address] Basic Metabolic Profile (BMP) Normal 133-145 [facility] Comment on above: Result Comment: DR. MARK LEONG ONLY NEEDED 1, THIS WAS A DUPLICATE PERABIGAIL IN ED. 01-25-25 @ 2154. LMARTELL Performed By: #### L 500.2500 ####[facility] [address] [place], [address] Bedside Glucoseon 01-25-2025 FINGERSTICK GLU 280 mg/dL High 74-106 [facility] Comment on above: Result Comment: MERECDES GEMENT OF PATIENT CARE PER NURSING PROTOCOL Performed By: #### L 501.080 ####[facility] [address] [place], [address] FINGERSTICK GLU 285 mg/dL High 74-106 [facility] Comment on above: Result Comment: MERCEDES GEMENT OF PATIENT CARE PER NURSING PROTOCOL Performed By: #### L 501.080 ####[facility] [address] [place], [address] Carbon dioxide, total [Moles /volume] in Central venous bloodOrdered By: Mark Leong on 01-25-2025 CO2 [Moles/Vol] 23.3 mmol/L 21.0-32.0 [facility] Chloride assayOrdered By: Amanda Leong on 01-25-2025 Chloride [Moles/Vol] 97 mmol/L Low 98-108 [facility] Emergency Department Summary on 01-25-2025 Emergency Department Summary Normal [facility] Glomerular filtration rate ( GFR) estimation/1.73 sq m using serum, plasma, or whole bOrdered By: Mark Leong on 01-25-2025 GFR/1.73 sq M.predicted among non-blacks MDRD (S/P/Bld) [Vol rate/Area] 61 mL/min/{1.73_m2} >60 [facility] Comment on above: mL/min/1.73m2 CKD-EP I Creatinine Equation (2020) [facility] By: Mark Leong on 01-25-2025 Glucose [Mass/Vol] 280 mg/dL High 74-[address] [facility] Comment on above: MANAGEMENT OF PATIEN T CARE PER NURSING PROTOCOL Potassium measurement (mass/ volume)Ordered By: Mark Leong on 01-25-2025 Potassium (Unsp spec) [Mass/Vol] 4.3 mmol/L 3.3-5.1 [facility] Serum creatinine measurement (mass/volume)Ordered By: Mark Leong on 01-25-2025 Creatinine [Mass/Vol] 0.95 mg/dL 0.70-1.20 [facility] Serum glucose measurement (m ass/volume)Ordered By: Mark Leong on 01-25-2025 Glucose [Mass/Vol] 295 mg/dL High 70-[address] [facility] Serum or plasma calcium zora urement (mass/volume)Ordered By: Mark Leong on 01-25-2025 Calcium [Mass/Vol] 9.1 mg/dL 7.6-11.[address] [facility] Serum or plasma urea nitroge n measurement (mass/volume)Ordered By: Mark Leong on 01-25-2025 Urea nitrogen [Mass/Vol] 21 mg/dL High 4-19 [facility] Sodium levelOrdered By: Mark Leong on 01-25-2025 Sodium [Moles/Vol] 132 mmol/L Low 133-145 [facility] CNOVon 01-15-2025 CNOV Normal [facility] Cardiology Visit Reporton Cardiology Visit Report Normal [facility] 25(OH)D3 SerPl-mCncon 2024 25-hydroxyvitamin D3 [Mass/Vol] 75.3 ng/mL Normal 31.0-80.0 [facility] Comment on above: Order Comment: Ruma deluna Type: BLOOD SPECIMENOrdering Facility: [facility] Address: [address] [place] [address] Performed By: #### 1 989-3 ####[facility] LABIA [id number] [place] [address] [place] HbA1c (Bld)on 01-08-2025 Average glucose Estimated from glycated hemoglobin (Bld) [Mass/Vol] 151 mg/dL Normal [facility] Comment on above: Order Comment: Ruma deluna Type: BLOOD SPECIMENOrdering Facility: [facility] Address: [address] [place] [address] Result Comment: eAG: (Estimated average glucose) is a calculated value from HgbA1c and is patient access representative of the average blood glucose level in the last 2-3 month period. Performed By: #### 5 5454-3 ####[facility] LABIA [id number] [place] [address] [place] HbA1c (Bld) [Mass fraction] 6.9 % High 4.3-5.6 [facility] Comment on above: Order Comment: Ruma deluna Type: BLOOD SPECIMENOrdering Facility: [facility] Address: [address] [place] [address] Result Comment: [place] Diabetes Association guidelines indicate that patients with HgbA1c in the range 5.7-6.4% are at increased risk for development of diabetes, and intervention by lifestyle modification may be beneficial. HgbA1c greater or equal to 6.5% is considered diagnostic of diabetes. Performed By: #### 5 5454-3 ####[facility] LABCLIA [id number] [place] [id number] [place] 12 Lead EKGon 01-04-2025 12 Lead EKG Normal [facility] Absolute lymphocyte countOrd ered By: Amber Martino on 01-04-2025 Lymphocytes Auto (Unsp spec) [#/Vol] 1.40 10*3/uL 0.83-4.51 [facility] Absolute neutrophil countOrd ered By: Amber Martino on 01-04-2025 Neutrophils (Bld) [#/Vol] 3.9 10*3/uL 2.0-7.7 [facility] Anion gap in Serum or Plasma Ordered By: Amber Martino on 01-04-2025 Anion gap [Moles/Vol] 11 mmol/L 5-15 [facility] Automated lymphocyte count a s percentage of total leukocytesOrdered By: Amber Martino on 01-04-2025 Lymphocytes/100 WBC Auto (Unsp spec) 22.3 % - [facility] BUN/creatinine ratioOrdered By: Amber Martino on 01-04-2025 Urea nitrogen/Creatinine [Mass ratio] 24.4 mg/mg High 05-06 [facility] Basic Metabolic Profile (BMP )on 01-04-2025 BUN/CRE 24.4 RATIO High 05-06 [facility] Comment on above: Performed By: #### L 100.0100, L500.2500, L501.4021 ####[facility] [address] [place], [address] Calcium [Mass/Vol] 9.2 mg/dL Normal 7.6-11.[address] [facility] Comment on above: Performed By: #### L 100.0100, L500.2500, L501.4021 ####[facility] [address] [place], [address] Chloride [Moles/Vol] 103 mmol/L Normal 98-108 [facility] Comment on above: Performed By: #### L 100.0100, L500.2500, L501.4021 ####[facility] [address] [place], [address] CO2 [Moles/Vol] 25.6 mmol/L Normal 21.0-32.0 [facility] Comment on above: Performed By: #### L 100.0100, L500.2500, L501.4021 ####[facility] [address] [place], [address] Creatinine [Mass/Vol] 0.93 mg/dL Normal 0.70-1.20 [facility] Comment on above: Performed By: #### L 100.0100, L500.2500, L501.4021 ####[facility] [address] [place], [address] GAP 11 Normal 5-15 [facility] Comment on above: Performed By: #### L 100.0100, L500.2500, L501.4021 ####[facility] [address] [place], [address] GFR/1.73 sq M.predicted among non-blacks MDRD (S/P/Bld) [Vol rate/Area] 63 mL/min/{1.73_m2} Normal >60 [facility] Comment on above: Result Comment: mL/m in/1.73m2 CKD-EPI Creatinine Equation (2020) Performed By: #### L 100.0100, L500.2500, L501.4021 ####[facility] [address] [place], [address] Glucose [Mass/Vol] 93 mg/dL Normal 70-[address] [facility] Comment on above: Performed By: #### L 100.0100, L500.2500, L501.4021 ####[facility] [address] [place], [address] Potassium [Moles/Vol] 4.0 mmol/L Normal 3.3-5.1 [facility] Comment on above: Performed By: #### L 100.0100, L500.2500, L501.4021 ####[facility] [address] [place], [address] Sodium [Moles/Vol] 140 mmol/L Normal 133-[address] [facility] Comment on above: Performed By: #### L 100.0100, L500.2500, L501.4021 ####[facility] [address] [place], [address] Urea nitrogen [Mass/Vol] 23 mg/dL High 4-19 [facility] Comment on above: Performed By: #### L 100.0100, L500.2500, L501.4021 ####[facility] [address] [place], [address] Basophil percentageOrdered B y: Amber Salena on 01-04-2025 Basophils/100 WBC (Bld) 0.5 % 0-1 [facility] Bedside Glucoseon 01-04-2025 FINGERSTICK GLU 114 mg/dL High 74-106 [facility] Comment on above: Result Comment: MERCEDES SUBRAMANIAN OF PATIENT CARE PER NURSING PROTOCOL Performed By: #### L 501.080 ####[facility] [address] [place], [address] CBC W/Diff, Automatedon -2 Absolute Lymph 1.40 X10 3/uL Normal 0.83-4.51 [facility] Comment on above: Performed By: #### L 100.0100, L500.2500, L501.4021 ####[facility] [address] [place], [address] Absolute Neut 3.9 X10 3/uL Normal 2.0-7.7 [facility] Comment on above: Performed By: #### L 100.0100, L500.2500, L501.4021 ####[facility] [address] [place], [address] Basophils/100 WBC (Bld) 0.5 % Normal 0-1 [facility] Comment on above: Performed By: #### L 100.0100, L500.2500, L501.4021 ####[facility] [address] [place], [address] Eosinophils/100 WBC (Bld) 5.7 % High 0-5 [facility] Comment on above: Performed By: #### L 100.0100, L500.2500, L501.4021 ####[facility] [address] [place], [address] Erythrocyte distribution width (RBC) [Ratio] 12.3 % Normal 11.6-14.6 [facility] Comment on above: Performed By: #### L 100.0100, L500.2500, L501.4021 ####[facility] [address] [place], [address] Hematocrit (Bld) [Volume fraction] 36.1 % Low 37-47 [facility] Comment on above: Performed By: #### L 100.0100, L500.2500, L501.4021 ####[facility] [address] [place], [address] Hemoglobin (Bld) [Mass/Vol] 12.1 g/dL Normal 12.0-15.0 [facility] Comment on above: Performed By: #### L 100.0100, L500.2500, L501.4021 ####[facility] [address] [place], [address] IG% 0.200 Normal 0.0-0.9 [facility] Comment on above: Result Comment: IG% - Immature Granulocytes (promyelocytes, myelocytes andmetamyelocytes) > 1% indicates that a LEFT SHIFT is Present. Performed By: #### L 100.0100, L500.2500, L501.4021 ####[facility] [address] [place], [address] Lymphocytes/100 WBC (Bld) 22.3 % Normal 19-41 [facility] Comment on above: Performed By: #### L 100.0100, L500.2500, L501.4021 ####[facility] [address] [place], [address] MCH (RBC) [Entitic mass] 29.7 pg Normal 27.0-32.0 [facility] Comment on above: Performed By: #### L 100.0100, L500.2500, L501.4021 ####[facility] [address] [place], [address] MCHC (RBC) [Mass/Vol] 33.5 g/dL Normal 32-36 [facility] Comment on above: Performed By: #### L 100.0100, L500.2500, L501.4021 ####[facility] [address] [place], [address] MCV (RBC) [Entitic vol] 88.7 fL Normal 81-99 [facility] Comment on above: Performed By: #### L 100.0100, L500.2500, L501.4021 ####[facility] [address] [place], [address] Monocytes/100 WBC (Bld) 9.7 % Normal 0-10 [facility] Comment on above: Performed By: #### L 100.0100, L500.2500, L501.4021 ####[facility] [address] [place], [address] Neutrophils/100 WBC (Bld) 61.6 % Normal 47-70 [facility] Comment on above: Performed By: #### L 100.0100, L500.2500, L501.4021 ####[facility] [address] [place], [address] Nucleated RBC (Bld) [#/Vol] 0 10*3/uL Normal 0-5 [facility] Comment on above: Performed By: #### L 100.0100, L500.2500, L501.4021 ####[facility] [address] [place], [address] Platelet mean volume (Bld) [Entitic vol] 12.2 fL High 6.2-12.0 [facility] Comment on above: Performed By: #### L 100.0100, L500.2500, L501.4021 ####[facility] [address] [place], [address] Platelets (Bld) [#/Vol] 193 10*3/uL Normal 150-450 [facility] Comment on above: Performed By: #### L 100.0100, L500.2500, L501.4021 ####[facility] [address] [place], [address] RBC (Bld) [#/Vol] 4.07 10*6/uL Low 4.2-5.4 [facility] Comment on above: Performed By: #### L 100.0100, L500.2500, L501.4021 ####[facility] [address] [place], [address] RDW SD 40.1 fl Normal 35.1-43.9 [facility] Comment on above: Performed By: #### L 100.0100, L500.2500, L501.4021 ####[facility] [address] [place], [address] WBC (Bld) [#/Vol] 6.3 10*3/uL Normal 4.4-11.[address] [facility] Comment on above: Performed By: #### L 100.0100, L500.2500, L501.4021 ####[facility] [address] [place], [place], [address] Carbon dioxide, total [Moles /volume] in Central venous bloodOrdered By: Amber Martino on 01-04-2025 CO2 [Moles/Vol] 25.6 mmol/L 21.0-32.0 [facility] Chest PA and Lateralon 01-04 Chest PA and Lateral Normal [facility] Chloride assayOrdered By: Daniel Martino on 01-04-2025 Chloride [Moles/Vol] 103 mmol/L 98-108 [facility] Emergency Department Summary on 01-04-2025 Emergency Department Summary Normal [facility] Eosinophil percentageOrdered By: Amber Martino on 01-04-2025 Eosinophils/100 WBC (Bld) 5.7 % High 0-5 [facility] Erythrocyte distribution wid th ratioOrdered By: Amber Martino on 01-04-2025 Erythrocyte distribution width (RBC) [Ratio] 12.3 % 11.6-14.6 [facility] Erythrocyte distribution wid th standard deviationOrdered By: Amber Martino on 01-04-2025 Erythrocyte distribution width (RBC) [Ratio] 40.1 fl 35.1-43.9 [facility] Glomerular filtration rate ( GFR) estimation/1.73 sq m using serum, plasma, or whole bOrdered By: Amber Martino on 01-04-2025 GFR/1.73 sq M.predicted among non-blacks MDRD (S/P/Bld) [Vol rate/Area] 63 mL/min/{1.73_m2} >60 [facility] Comment on above: mL/min/1.73m2 CKD-EP I Creatinine Equation (2020) Glucose measurement at bedsi deOrdered By: Zay Juan on 01-04-2025 Glucose [Mass/Vol] 114 mg/dL High 74-[address] [facility] Comment on above: MANAGEMENT OF PATIEN T CARE PER NURSING PROTOCOL Hematocrit Auto (Bld) [Volum e fraction]Ordered By: Amber Martino on 01-04-2025 Hematocrit (Bld) [Volume fraction] 36.1 % Low 37-47 [facility] Hemoglobin measurementOrdere d By: Amber Martino on 01-04-2025 Hemoglobin (Bld) [Mass/Vol] 12.1 g/dL 12.0-15.0 [facility] Immature granulocytes/100 WB C Auto (Bld)Ordered By: Amber Martino on 01-04-2025 Immature granulocytes/100 WBC (Bld) 0.200 % 0.0-0.9 [facility] Comment on above: IG% - Immature Granu locytes (promyelocytes, myelocytes and metamyelocytes) > 1% indicates that a LEFT SHIFT is Present. L499.0042on 01-04-2025 Trop T High Sen 13 ng/L Normal <=14 [facility] Comment on above: Performed By: #### L 499.0042 ####[facility] [address] [place], [address] L499.0043on 01-04-2025 Trop T High Sen Normal <=14 [facility] Comment on above: Result Comment: Bradley flores via OM: Ordered Performed By: #### L 499.0043 ####[facility] [address] [place], [address] L501.4021on 01-04-2025 Trop T High Sen 15 ng/L High <=14 [facility] Comment on above: Performed By: #### L 100.0100, L500.2500, L501.4021 ####[facility] [address] [place], [address] MCV (mean corpuscular volume ) determinationOrdered By: Amber Martino on 01-04-2025 MCV (RBC) [Entitic vol] 88.7 fL 81-99 [facility] Mean corpuscular hemoglobin (MCH) determinationOrdered By: Amber Martino on 01-04-2025 MCH (RBC) [Entitic mass] 29.7 pg 27.0-32.0 [facility] Mean corpuscular hemoglobin concentration (MCHC) determinationOrdered By: Amber Martino on 01-04-2025 MCHC (RBC) [Mass/Vol] 33.5 g/dL 32-36 [facility] Mean platelet volume determi nationOrdered By: Amber Martino on 01-04-2025 Platelet mean volume (Bld) [Entitic vol] 12.2 fL High 6.2-12.0 [facility] Monocyte percentageOrdered B y: Amber Martino on 01-04-2025 Monocytes/100 WBC (Bld) 9.7 % 0-10 [facility] Neutrophil percentageOrdered By: Amber Martino on 01-04-2025 Neutrophils/100 WBC (Bld) 61.6 % 47-70 [facility] Nucleated red blood cell per centageOrdered By: Amber Martino on 01-04-2025 Nucleated RBC/100 WBC (Bld) [Ratio] 0 % 0-5 [facility] Platelet countOrdered By: Daniel Martino on 01-04-2025 Platelets (Bld) [#/Vol] 193 10*3/uL 150-450 [facility] Potassium measurement (mass/ volume)Ordered By: Amber Martino on 01-04-2025 Potassium (Unsp spec) [Mass/Vol] 4.0 mmol/L 3.3-5.1 [facility] RBC Auto (Bld) [#/Vol]Ordere d By: Amber Martino on 01-04-2025 RBC (Bld) [#/Vol] 4.07 10*6/uL Low 4.2-5.4 [facility] Serum creatinine measurement (mass/volume)Ordered By: Amber Martino on 01-04-2025 Creatinine [Mass/Vol] 0.93 mg/dL 0.70-1.20 [facility] Serum glucose measurement (m ass/volume)Ordered By: Amber Martino on 01-04-2025 Glucose [Mass/Vol] 93 mg/dL 70-[address] [facility] Serum or plasma calcium zora urement (mass/volume)Ordered By: Amber Martino on 01-04-2025 Calcium [Mass/Vol] 9.2 mg/dL 7.6-11.[address] [facility] Serum or plasma urea nitroge n measurement (mass/volume)Ordered By: Amber Martino on 01-04-2025 Urea nitrogen [Mass/Vol] 23 mg/dL High 4-19 [facility] Sodium levelOrdered By: Amber Martino on 01-04-2025 Sodium [Moles/Vol] 140 mmol/L 133-[address] [facility] Troponin T.cardiac [Mass/vol ume] in Serum or Plasma by High sensitivity methodOrdered By: Amber Martino on 01-04-2025 Troponin T.cardiac High sensitivity method [Mass/Vol] 13 ng/L <14 [facility] Troponin T.cardiac High sensitivity method [Mass/Vol] 15 ng/L High <14 [facility] White blood cell (WBC) count Ordered By: Amber Martino on 01-04-2025 WBC (Bld) [#/Vol] 6.3 10*3/uL 4.4-11.[address] [facility] Bedside Glucoseon 12-19-2024 FINGERSTICK GLU 227 mg/dL High 74-106 [facility] Comment on above: Result Comment: MERCEDES SUBRAMANIAN OF PATIENT CARE PER NURSING PROTOCOL Performed By: #### L 501.080 ####[facility] [address] [place], [place], [address] [facility] 12-19-2024 [facility] Normal [facility] Emergency Department Summary on 12-19-2024 Emergency Department Summary Normal [facility] de[facility]dered By: Abdulaziz Stratton on 12-19-2024 Glucose [Mass/Vol] 227 mg/dL High 74-[address] [facility] Comment on above: MANAGEMENT OF PATIEN T CARE PER NURSING PROTOCOL [facility] 12-14-2024 [facility] Normal [facility] 12-12-2024 [facility] Normal [facility] Absolute lymphocyte countOrd ered By: Serg Solis on 11-29-2024 Lymphocytes Auto (Unsp spec) [#/Vol] 1.09 10*3/uL 0.83-4.51 [facility] Absolute neutrophil countOrd ered By: Serg Solis on 11-29-2024 Neutrophils (Bld) [#/Vol] 3.4 10*3/uL 2.0-7.7 [facility] Anion gap in Serum or Plasma Ordered By: Serg oSlis on 11-29-2024 Anion gap [Moles/Vol] 11 mmol/L 5- [facility] Automated lymphocyte count a s percentage of total leukocytesOrdered By: Serg Solis on 11-29-2024 Lymphocytes/100 WBC Auto (Unsp spec) 20.6 % 19-41 [facility] BUN/creatinine ratioOrdered By: Serg Solis on 11-29-2024 Urea nitrogen/Creatinine [Mass ratio] 21.6 mg/mg High 10-20 [facility] Basophil percentageOrdered B y: Serg Solis on 11-29-2024 Basophils/100 WBC (Bld) 0.8 % 0-1 [facility] Bedside Glucoseon 11-29-2024 FINGERSTICK GLU 265 mg/dL High 74-106 [facility] Comment on above: Result Comment: MERCEDES GEMENT OF PATIENT CARE PER NURSING PROTOCOL Performed By: #### L 501.080 ####[facility] [address] [place], [address] FINGERSTICK GLU 275 mg/dL High 74-106 [facility] Comment on above: Result Comment: MERCEDES GEMENT OF PATIENT CARE PER NURSING PROTOCOL Performed By: #### L 501.080 ####[facility] [address] [place], [address] Beta-Hydroxbytyrateon 2024 BETA-HYDROXYBUT 1.0 mmol/L Normal 0.0-0.3 [facility] Comment on above: Performed By: #### L 100.0100, L500.4050, L501.6901 ####[facility] [address] [place], [address] Beta-hydroxybutyrateOrdered By: Serg Solis on 11-29-2024 Beta hydroxybutyrate [Mass/Vol] 1.0 mmol/L 0.0-0.3 [facility] Bilirubin Test strip Ql (U)O rdered By: Serg Solis on 11-29-2024 Bilirubin Ql (U) Negative Negative [facility] Bilirubin, totalOrdered By: Serg Solis on 11-29-2024 Bilirubin [Mass/Vol] 0.72 mg/dL 0.00-1.30 [facility] CBC W/Diff, Automatedon 11-15 Absolute Lymph 1.09 X10 3/uL Normal 0.83-4.51 [facility] Comment on above: Performed By: #### L 100.0100, L500.4050, L501.6901 ####[facility] [address] [place], [address] Absolute Neut 3.4 X10 3/uL Normal 2.0-7.7 [facility] Comment on above: Performed By: #### L 100.0100, L500.4050, [id number] ####[facility] [address] [place], [address] Basophils/100 WBC (Bld) 0.8 % Normal 0-1 [facility] Comment on above: Performed By: #### L 100.0100, L500.4050, [id number] ####[facility] [address] [place], [address] Eosinophils/100 WBC (Bld) 6.6 % High 0-5 [facility] Comment on above: Performed By: #### L 100.0100, L500.4050, [id number] ####[facility] [address] [place], [address] Erythrocyte distribution width (RBC) [Ratio] 12.6 % Normal 11.6-14.6 [facility] Comment on above: Performed By: #### L 100.0100, L500.4050, L501.6901 ####[facility] [address] [place], [address] Hematocrit (Bld) [Volume fraction] 38.2 % Normal 37-47 [facility] Comment on above: Performed By: #### L 100.0100, L500.4050, [id number] ####[facility] [address] [place], [address] Hemoglobin (Bld) [Mass/Vol] 12.6 g/dL Normal 12.0-15.0 [facility] Comment on above: Performed By: #### L 100.0100, L500.4050, [id number] ####[facility] [address] [place], [address] IG% 0.000 Normal 0.0-0.9 [facility] Comment on above: Result Comment: IG% - Immature Granulocytes (promyelocytes, myelocytes andmetamyelocytes) > 1% indicates that a LEFT SHIFT is Present. Performed By: #### L 100.0100, L500.4050, [id number] ####[facility] [address] [place], [address] Lymphocytes/100 WBC (Bld) 20.6 % Normal 19-41 [facility] Comment on above: Performed By: #### L 100.0100, L500.4050, [id number] ####[facility] [address] [place], [address] MCH (RBC) [Entitic mass] 30.0 pg Normal 27.0-32.0 [facility] Comment on above: Performed By: #### L 100.0100, L500.4050, [id number] ####[facility] [address] [place], [address] MCHC (RBC) [Mass/Vol] 33.0 g/dL Normal 32-36 [facility] Comment on above: Performed By: #### L 100.0100, L500.4050, [id number] ####[facility] [address] [place], [address] MCV (RBC) [Entitic vol] 91.0 fL Normal 81-99 [facility] Comment on above: Performed By: #### L 100.0100, L500.4050, [id number] ####[facility] [address] [place], [address] Monocytes/100 WBC (Bld) 7.2 % Normal 0-10 [facility] Comment on above: Performed By: #### L 100.0100, L500.4050, [id number] ####[facility] [address] [place], [address] Neutrophils/100 WBC (Bld) 64.8 % Normal 47-70 [facility] Comment on above: Performed By: #### L 100.0100, L500.4050, [id number] ####[facility] [address] [place], [address] Nucleated RBC (Bld) [#/Vol] 0 10*3/uL Normal 0-5 [facility] Comment on above: Performed By: #### L 100.0100, L500.4050, [id number] ####[facility] [address] [place], [address] Platelet mean volume (Bld) [Entitic vol] 12.1 fL High 6.2-12.0 [facility] Comment on above: Performed By: #### L 100.0100, L500.4050, [id number] ####[facility] [address] [place], [address] Platelets (Bld) [#/Vol] 153 10*3/uL Normal 150-450 [facility] Comment on above: Performed By: #### L 100.0100, L500.4050, [id number] ####[facility] [address] [place], [address] RBC (Bld) [#/Vol] 4.20 10*6/uL Normal 4.2-5.4 [facility] Comment on above: Performed By: #### L 100.0100, L500.4050, [id number] ####[facility] [address] [place], [address] RDW SD 41.7 fl Normal 35.1-43.9 [facility] Comment on above: Performed By: #### L 100.0100, L500.4050, [id number] ####[facility] [address] [place], [address] WBC (Bld) [#/Vol] 5.3 10*3/uL Normal 4.4-11.[address] [facility] Comment on above: Performed By: #### L 100.0100, L500.4050, [id number] ####[facility] [address] [place], [address] Carbon dioxide, total [Moles /volume] in Central venous bloodOrdered By: Serg Solis on 11-29-2024 CO2 [Moles/Vol] 22.8 mmol/L 21.0-32.0 [facility] Chloride assayOrdered By: Abundio Solis on 11-29-2024 Chloride [Moles/Vol] 100 mmol/L 98-108 [facility] Comprehensive Metabolic Prof ilon 11-29-2024 Albumin [Mass/Vol] 3.8 g/dL Normal 3.4-4.[address] [facility] Comment on above: Performed By: #### L 100.0100, L500.4050, [id number] ####[facility] [address] [place], [address] Albumin/Globulin [Mass ratio] 1.4 {ratio} Normal 0.9-2.4 [facility] Comment on above: Performed By: #### L 100.0100, L500.4050, [id number] ####[facility] [address] [place], [address] ALK PHOS 75 U/L Normal 35-104 [facility] Comment on above: Performed By: #### L 100.0100, L500.4050, [id number] ####[facility] [address] [place], [address] ALT [Catalytic activity/Vol] 15 U/L Normal <=34 [facility] Comment on above: Performed By: #### L 100.0100, L500.4050, [id number] ####[facility] [address] [place], [address] AST [Catalytic activity/Vol] 23 U/L Normal <=31 [facility] Comment on above: Performed By: #### L 100.0100, L500.4050, [id number] ####[facility] [address] [place], [address] Bilirubin [Mass/Vol] 0.72 mg/dL Normal 0.00-1.30 [facility] Comment on above: Performed By: #### L 100.0100, L500.4050, [id number] ####[facility] [address] [place], [address] BUN/CRE 21.6 RATIO High 10-20 [facility] Comment on above: Performed By: #### L 100.0100, L500.4050, [id number] ####[facility] [address] [place], [address] Calcium [Mass/Vol] 9.0 mg/dL Normal 7.6-11.[address] [facility] Comment on above: Performed By: #### L 100.0100, L500.4050, [id number] ####[facility] [address] [place], [address] Chloride [Moles/Vol] 100 mmol/L Normal 98-108 [facility] Comment on above: Performed By: #### L 100.0100, L500.4050, [id number] ####[facility] [address] [place], [address] CO2 [Moles/Vol] 22.8 mmol/L Normal 21.0-32.0 [facility] Comment on above: Performed By: #### L 100.0100, L500.4050, [id number] ####[facility] [address] [place], [address] Creatinine [Mass/Vol] 0.82 mg/dL Normal 0.70-1.20 [facility] Comment on above: Performed By: #### L 100.0100, L500.4050, [id number] ####[facility] [address] [place], [address] ECRCL 81.15 ml/min Normal 50-250 [facility] Comment on above: Performed By: #### L 100.0100, L500.4050, [id number] ####[facility] [address] [place], [address] GAP 11 Normal 5-15 [facility] Comment on above: Performed By: #### L 100.0100, L500.4050, [id number] ####[facility] [address] [place], [address] GFR/1.73 sq M.predicted among non-blacks MDRD (S/P/Bld) [Vol rate/Area] 73 mL/min/{1.73_m2} Normal >60 [facility] Comment on above: Result Comment: mL/m in/1.73m2 CKD-EPI Creatinine Equation (2020) Performed By: #### L 100.0100, L500.4050, [id number] ####[facility] [address] [place], [address] Globulin (S) [Mass/Vol] 2.7 g/dL Normal 2.2-4.2 [facility] Comment on above: Performed By: #### L 100.0100, L500.4050, [id number] ####[facility] [address] [place], [address] Glucose [Mass/Vol] 286 mg/dL High 70-[address] [facility] Comment on above: Performed By: #### L 100.0100, L500.4050, [id number] ####[facility] [address] [place], [address] Potassium [Moles/Vol] 4.2 mmol/L Normal 3.3-5.1 [facility] Comment on above: Performed By: #### L 100.0100, L500.4050, [id number] ####[facility] [address] [place], [address] Sodium [Moles/Vol] 135 mmol/L Normal 133-[address] [facility] Comment on above: Performed By: #### L 100.0100, L500.4050, [id number] ####[facility] [address] [place], [address] T PROT 6.5 g/dL Normal 5.9-8.4 [facility] Comment on above: Performed By: #### L 100.0100, L500.4050, [id number] ####[facility] [address] [place], [address] Urea nitrogen [Mass/Vol] 18 mg/dL Normal 4-19 [facility] Comment on above: Performed By: #### L 100.0100, L500.4050, [id number] ####[facility] [address] [place], [address] Emergency Department Summary on 11-29-2024 Emergency Department Summary Normal [facility] Eosinophil percentageOrdered By: Serg Solis on 11-29-2024 Eosinophils/100 WBC (Bld) 6.6 % High 0-5 [facility] Erythrocyte distribution wid th ratioOrdered By: Serg Solis on 11-29-2024 Erythrocyte distribution width (RBC) [Ratio] 12.6 % 11.6-14.6 [facility] Erythrocyte distribution wid th standard deviationOrdered By: Serg Solis on 11-29-2024 Erythrocyte distribution width (RBC) [Ratio] 41.7 fl 35.1-43.9 [facility] Glomerular filtration rate ( GFR) estimation/1.73 sq m using serum, plasma, or whole bOrdered By: Serg Solis on 11-29-2024 GFR/1.73 sq M.predicted among non-blacks MDRD (S/P/Bld) [Vol rate/Area] 73 mL/min/{1.73_m2} >60 [facility] Comment on above: mL/min/1.73m2 CKD-EP I Creatinine Equation (2020) Glucose measurement at [facility] deOrdered By: Serg Solis on 11-29-2024 Glucose [Mass/Vol] 265 mg/dL [facility] 74-[address] [facility] Comment on above: MANAGEMENT OF PATIEN T CARE PER NURSING PROTOCOL Glucose [Mass/Vol] 275 mg/dL [address] [facility] Comment on above: MANAGEMENT OF PATIEN T CARE PER NURSING PROTOCOL Hematocrit Auto (Bld) [Volum e fraction]Ordered By: Serg Solis on 11-29-2024 Hematocrit (Bld) [Volume fraction] 38.2 % 37-47 [facility] Hemoglobin measurementOrdere d By: Serg Solis on 11-29-2024 Hemoglobin (Bld) [Mass/Vol] 12.6 g/dL 12.0-15.0 [facility] Immature granulocytes/100 WB C Auto (Bld)Ordered By: Serg Solis on 11-29-2024 Immature granulocytes/100 WBC (Bld) 0.000 % 0.0-0.9 [facility] Comment on above: IG% - Immature Granu locytes (promyelocytes, myelocytes and metamyelocytes) > 1% indicates that a LEFT SHIFT is Present. Ketones Test strip Ql (U)Ord ered By: Serg Solis on 11-29-2024 Ketones Ql (U) 15 mg/dl High Negative [facility] Laboratory - Chemistry and C hemistry - challengeOrdered By: Serg Solis on 11-29-2024 AST [Catalytic activity/Vol] 23 U/L <32 [facility] MCV (mean corpuscular volume ) determinationOrdered By: eSrg Solis on 11-29-2024 MCV (RBC) [Entitic vol] 91.0 fL 81-99 [facility] Mean corpuscular hemoglobin (MCH) determinationOrdered By: Serg Solis on 11-29-2024 MCH (RBC) [Entitic mass] 30.0 pg 27.0-32.0 [facility] Mean corpuscular hemoglobin concentration (MCHC) determinationOrdered By: Serg Solis on 11-29-2024 MCHC (RBC) [Mass/Vol] 33.0 g/dL 32-36 [facility] Mean platelet volume determi nationOrdered By: Serg Solis on 11-29-2024 Platelet mean volume (Bld) [Entitic vol] 12.1 fL High 6.2-12.0 [facility] Microscopic analysis of urin e for red blood cells (RBC)Ordered By: Serg Solis on 11-29-2024 Microscopic analysis of urine for red blood cells (RBC) 0 SEEN /hpf 0-5 [facility] Monocyte percentageOrdered B y: Serg Solis on 11-29-2024 Monocytes/100 WBC (Bld) 7.2 % 0-10 [facility] Mucus LM Ql (Urine sed)Order ed By: Serg Solis on 11-29-2024 Mucus Ql (Urine sed) 0 SEEN /hpf [facility] Neutrophil percentageOrdered By: Serg Solis on 11-29-2024 Neutrophils/100 WBC (Bld) 64.8 % 47-70 [facility] Nitrite Test strip Ql (U)Ord ered By: Serg Solis on 11-29-2024 Nitrite Ql (U) Negative Negative [facility] No Panel InformationOrdered By: Serg Solis on 11-29-2024 23 U/L <32 [facility] Nucleated red blood cell per centageOrdered By: Serg Solis on 11-29-2024 Nucleated RBC/100 WBC (Bld) [Ratio] 0 % 0-5 [facility] Platelet countOrdered By: Abundio Solis on 11-29-2024 Platelets (Bld) [#/Vol] 153 10*3/uL 150-450 [facility] Potassium measurement (mass/ volume)Ordered By: Serg Solis on 11-29-2024 Potassium (Unsp spec) [Mass/Vol] 4.2 mmol/L 3.3-5.1 [facility] Protein Test strip Ql (U)Ord ered By: Serg Solis on 11-29-2024 Protein Ql (U) 15 mg/dl High Negative [facility] RBC Auto (Bld) [#/Vol]Ordere d By: Serg Solis on 11-29-2024 RBC (Bld) [#/Vol] 4.20 10*6/uL 4.2-5.4 [facility] Serum creatinine measurement (mass/volume)Ordered By: Serg Solis on 11-29-2024 Creatinine [Mass/Vol] 0.82 mg/dL 0.70-1.20 [facility] Serum globulin measurementOr dered By: Serg Solis on 11-29-2024 Globulin (S) [Mass/Vol] 2.7 g/dL 2.2-4.2 [facility] Serum glucose measurement (m ass/volume)Ordered By: Serg Solis on 11-29-2024 Glucose [Mass/Vol] 286 mg/dL High 70-[address] [facility] Serum or plasma alanine ramírez otransferase (ALT) measurementOrdered By: Serg Solis on 11-29-2024 ALT [Catalytic activity/Vol] 15 U/L <35 [facility] Serum or plasma albumin zora urement (mass/volume)Ordered By: Serg Solis on 11-29-2024 Albumin [Mass/Vol] 3.8 g/dL 3.4-4.[address] [facility] Serum or plasma albumin/glob ulin mass ratioOrdered By: Serg Solis on 11-29-2024 Albumin/Globulin [Mass ratio] 1.4 {ratio} 0.9-2.4 [facility] Serum or plasma alkaline dhiraj sphatase measurementOrdered By: Serg Solis on 11-29-2024 ALP [Catalytic activity/Vol] 75 U/L 35-104 [facility] Serum or plasma calcium zora urement (mass/volume)Ordered By: Serg Solis on 11-29-2024 Calcium [Mass/Vol] 9.0 mg/dL 7.6-11.[address] [facility] Serum or plasma urea nitroge n measurement (mass/volume)Ordered By: Serg Solis on 11-29-2024 Urea nitrogen [Mass/Vol] 18 mg/dL 4-19 [facility] Sodium levelOrdered By: Serg Solis on 11-29-2024 Sodium [Moles/Vol] 135 mmol/L 133-[address] [facility] Squamous epithelial cells de tection in urine sediment by light microscopyOrdered By: Serg Solis on 11-29-2024 Epithelial cells.squamous LM Ql (Urine sed) 0-5 SEEN /hpf - [facility] Total proteinOrdered By: Ting Solis on 11-29-2024 Protein [Mass/Vol] 6.5 g/dL 5.9-8.[address] [facility] Urinalysis, Completeon 11-29 EPI,SQUAMOUS 0-5 SEEN Normal - [facility] Comment on above: Order Comment: CLEAN CATCH Performed By: #### L 400.0001 ####[facility] [address] [place], [address] WBC 0-5 SEEN Normal 0-5 [facility] Comment on above: Order Comment: CLEAN CATCH Performed By: #### L 400.0001 ####[facility] [address] [facility] [address] BACTERIA 0 SEEN Normal None Seen [facility] Comment on above: Order Comment: CLEAN CATCH Performed By: #### L 400.0001 ####[facility] [address] [place], [address] Mucus Ql (Urine sed) 0 SEEN Normal [facility] Comment on above: Order Comment: CLEAN CATCH Performed By: #### L 400.0001 ####[facility] [address] [place], [address] RBC 0 SEEN Normal 0-5 [facility] Comment on above: Order Comment: CLEAN CATCH Performed By: #### L 400.0001 ####[facility] [address] [place], [address] Urine clarityOrdered By: Ting Solis on 11-29-2024 Clarity (U) Clear Clear [facility] Urine color determinationOrd ered By: Serg Solis on 11-29-2024 Color (U) Straw Yellow [facility] Urine glucose detectionOrder ed By: Serg Solis on 11-29-2024 Glucose Ql (U) 50 mg/dl High Normal [facility] Urine leukocyte esterase det ection by dipstickOrdered By: Serg Solis on 11-29-2024 Leukocyte esterase Test strip Ql (U) Negative Negative [facility] Urine pHOrdered By: Serg cedillo on 11-29-2024 pH (U) 6.0 [pH] 5.0 - 8.0 [facility] Urine sediment bacteria coun t by microscopy (number/high power field)Ordered By: Serg Solis on 11-29-2024 Bacteria LM.HPF (Urine sed) [#/Area] 0 /[HPF] None Seen [facility] Urine specific gravity measu rementOrdered By: Serg Solis on 11-29-2024 Specific gravity (U) [Rel density] 1.015 1.002-1.030 [facility] Urine urobilinogen measureme ntOrdered By: Serg Solis on 11-29-2024 Urobilinogen Ql (U) Normal mg/dl Normal [facility] White blood cell (WBC) count Ordered By: Serg Solis on 11-29-2024 WBC (Bld) [#/Vol] 5.3 10*3/uL 4.4-11.[address] [facility] White blood cell countOrdere d By: Serg Solis on 11-29-2024 White blood cell count 0-5 SEEN /hpf 0-5 [facility] Cardiology Visit Reporton Cardiology Visit Report Normal [facility] CNPTOUTREACHon 11-07-2024 CNPTOUTREACH Normal [facility] Bedside Glucoseon 11-03-2024 FINGERSTICK GLU 135 mg/dL High 74-106 [facility] Comment on above: Result Comment: MERCEDES GEMENT OF PATIENT CARE PER NURSING PROTOCOL Performed By: #### L 501.080 ####[facility] [address] [place], [address] Emergency Department Summary on 11-03-2024 Emergency Department Summary Normal [facility] Glucose measurement at [facility] deOrdered By: Zay Juan on 11-03-2024 Glucose [Mass/Vol] 135 mg/dL High 74-[address] [facility] Comment on above: MANAGEMENT OF PATIEN T CARE PER NURSING PROTOCOL Venous Duplex US, Unilateral on 11-03-2024 Venous Duplex US, Unilateral Normal [facility] CNOVon 10-31-2024 CNOV Normal [facility] CNPNon 10-29-2024 CNPN Normal [facility] CNPNon 10-25-2024 CNPN Normal [facility] Bedside Glucoseon 10-24-2024 FINGERSTICK GLU 194 mg/dL High [facility]106 [facility] Comment on above: Result Comment: MERCEDES GEMCHERYL OF PATIENT CARE PER NURSING PROTOCOL Performed By: #### L 501.080 ####[facility] [address] [place], [address] Emergency Department Summary on 10-24-2024 Emergency Department Summary Normal [facility] Glucose measurement at [facility] deOrdered By: Benjamín Stanford on 10-24-2024 Bedside Glucose (Misc Panel) 194 mg/dL High 74-106 [facility] Comment on above: MANAGEMENT OF PATIEN T CARE PER NURSING PROTOCOL Glucose [Mass/Vol] 194 mg/dL High 74-[address] [facility] Comment on above: MANAGEMENT OF PATIEN T CARE PER NURSING PROTOCOL Venous Duplex Imag/Limited/U nion 10-24-2024 Venous Duplex Imag/Limited/Uni Normal [facility] Absolute lymphocyte countOrd ered By: Holland Sanches on 10-19-2024 Lymphocytes Auto (Unsp spec) [#/Vol] 0.79 10*3/uL Low 0.83-4.51 [facility] Absolute neutrophil countOrd ered By: Holland Sanches on 10-19-2024 Neutrophils (Bld) [#/Vol] 4.2 10*3/uL 2.0-7.7 [facility] Anion gap in Serum or Plasma Ordered By: Holland Sanches on 10-19-2024 Anion gap [Moles/Vol] 12 mmol/L 5-15 [facility] Automated lymphocyte count a s percentage of total leukocytesOrdered By: Holland Sanches on 10-19-2024 Lymphocytes/100 WBC Auto (Unsp spec) 14.4 % Low 19-41 [facility] BUN/creatinine ratioOrdered By: Holland Sanches on 10-19-2024 Urea nitrogen/Creatinine [Mass ratio] 23.1 mg/mg High 10-20 [facility] Basic Metabolic Profile (BMP )on 10-19-2024 BUN/CRE 23.1 RATIO High 10-20 [facility] Comment on above: Performed By: #### L 100.0100, L500.2500, L501.6901 ####[facility] [address] [place], [address] Calcium [Mass/Vol] 9.3 mg/dL Normal 7.6-11.[address] [facility] Comment on above: Performed By: #### L 100.0100, L500.2500, L501.6901 ####[facility] [address] [place], [address] Chloride [Moles/Vol] 101 mmol/L Normal 98-108 [facility] Comment on above: Performed By: #### L 100.0100, L500.2500, L501.6901 ####[facility] [address] [place], [address] CO2 [Moles/Vol] 23.3 mmol/L Normal 21.0-32.0 [facility] Comment on above: Performed By: #### L 100.0100, L500.2500, L501.6901 ####[facility] [address] [place], [address] Creatinine [Mass/Vol] 0.83 mg/dL Normal 0.70-1.20 [facility] Comment on above: Performed By: #### L 100.0100, L500.2500, L501.6901 ####[facility] [address] [place], [address] ECRCL 79.68 ml/min Normal 50-250 [facility] Comment on above: Performed By: #### L 100.0100, L500.2500, L501.6901 ####[facility] [address] [place], [address] GAP 12 Normal 5-15 [facility] Comment on above: Performed By: #### L 100.0100, L500.2500, L501.6901 ####[facility] [address] [place], [address] GFR/1.73 sq M.predicted among non-blacks MDRD (S/P/Bld) [Vol rate/Area] 72 mL/min/{1.73_m2} Normal >60 [facility] Comment on above: Result Comment: mL/m in/1.73m2 CKD-EPI Creatinine Equation (2020) Performed By: #### L 100.0100, L500.2500, L501.6901 ####[facility] [address] [place], [address] Glucose [Mass/Vol] 334 mg/dL High 70-[address] [facility] Comment on above: Performed By: #### L 100.0100, L500.2500, L501.6901 ####[facility] [address] [place], [address] Potassium [Moles/Vol] 4.5 mmol/L Normal 3.3-5.1 [facility] Comment on above: Performed By: #### L 100.0100, L500.2500, L501.6901 ####[facility] [address] [place], [address] Sodium [Moles/Vol] 136 mmol/L Normal 133-[address] [facility] Comment on above: Performed By: #### L 100.0100, L500.2500, L501.6901 ####[facility] [address] [place], [address] Urea nitrogen [Mass/Vol] 19 mg/dL Normal 4-19 [facility] Comment on above: Performed By: #### L 100.0100, L500.2500, L501.6901 ####[facility] [address] [place], [address] Basophil percentageOrdered B y: Holland Sanches on 10-19-2024 Basophils/100 WBC (Bld) 0.5 % 0-1 [facility] Bedside Glucoseon 10-19-2024 FINGERSTICK GLU 320 mg/dL High 74-106 [facility] Comment on above: Result Comment: MERCEDES GEMENT OF PATIENT CARE PER NURSING PROTOCOL Performed By: #### L 501.080 ####[facility] [address] [place], [address] FINGERSTICK GLU 339 mg/dL High 74-106 [facility] Comment on above: Result Comment: MERCEDES GEMENT OF PATIENT CARE PER NURSING PROTOCOL Performed By: #### L 501.080 ####[facility] [address] [place], [address] Beta hydroxybutyrate [Mass/V ol]Ordered By: Holland Sanches on 10-19-2024 Beta-Hydroxybutyric Acid mmol/L 0.8 mmol/L 0.0-0.3 [facility] Beta-Hydroxbytyrateon 2024 BETA-HYDROXYBUT 0.8 mmol/L Normal 0.0-0.3 [facility] Comment on above: Performed By: #### L 100.0100, L500.2500, L501.6901 ####[facility] [address] [place], [address] Beta-hydroxybutyrateOrdered By: Holland Sanches on 10-19-2024 Beta hydroxybutyrate [Mass/Vol] 0.8 mmol/L 0.0-0.3 [facility] Bilirubin Test strip Ql (U)O rdered By: Holland Sanches on 10-19-2024 Bilirubin Ql (U) Negative Negative [facility] CBC W/Diff, Automatedon Absolute Lymph 0.79 X10 3/uL Low 0.83-4.51 [facility] Comment on above: Performed By: #### L 100.0100, L500.2500, L501.6901 ####[facility] [address] [place], [address] Absolute Neut 4.2 X10 3/uL Normal 2.0-7.7 [facility] Comment on above: Performed By: #### L 100.0100, L500.2500, L501.6901 ####[facility] [address] [place], [address] Basophils/100 WBC (Bld) 0.5 % Normal 0-1 [facility] Comment on above: Performed By: #### L 100.0100, L500.2500, L501.6901 ####[facility] [address] [place], [address] Eosinophils/100 WBC (Bld) 2.5 % Normal 0-5 [facility] Comment on above: Performed By: #### L 100.0100, L500.2500, L501.6901 ####[facility] [address] [place], [address] Erythrocyte distribution width (RBC) [Ratio] 12.7 % Normal 11.6-14.6 [facility] Comment on above: Performed By: #### L 100.0100, L500.2500, L501.6901 ####[facility] [address] [place], [address] Hematocrit (Bld) [Volume fraction] 39.4 % Normal 37-47 [facility] Comment on above: Performed By: #### L 100.0100, L500.2500, L501.6901 ####[facility] [address] [place], [address] Hemoglobin (Bld) [Mass/Vol] 12.9 g/dL Normal 12.0-15.0 [facility] Comment on above: Performed By: #### L 100.0100, L500.2500, L501.6901 ####[facility] [address] [place], [address] IG% 0.000 Normal 0.0-0.9 [facility] Comment on above: Result Comment: IG% - Immature Granulocytes (promyelocytes, myelocytes andmetamyelocytes) > 1% indicates that a LEFT SHIFT is Present. Performed By: #### L 100.0100, L500.2500, L501.6901 ####[facility] [address] [place], [address] Lymphocytes/100 WBC (Bld) 14.4 % Low 19-41 [facility] Comment on above: Performed By: #### L 100.0100, L500.2500, L501.6901 ####[facility] [address] [place], [address] MCH (RBC) [Entitic mass] 29.7 pg Normal 27.0-32.0 [facility] Comment on above: Performed By: #### L 100.0100, L500.2500, L501.6901 ####[facility] [address] [place], [address] MCHC (RBC) [Mass/Vol] 32.7 g/dL Normal 32-36 [facility] Comment on above: Performed By: #### L 100.0100, L500.2500, L501.6901 ####[facility] [address] [place], [address] MCV (RBC) [Entitic vol] 90.6 fL Normal 81-99 [facility] Comment on above: Performed By: #### L 100.0100, L500.2500, L501.6901 ####[facility] [address] [place], [address] Monocytes/100 WBC (Bld) 6.4 % Normal 0-10 [facility] Comment on above: Performed By: #### L 100.0100, L500.2500, L501.6901 ####[facility] [address] [place], [address] Neutrophils/100 WBC (Bld) 76.2 % High 47-70 [facility] Comment on above: Performed By: #### L 100.0100, L500.2500, L501.6901 ####[facility] [address] [place], [address] Nucleated RBC (Bld) [#/Vol] 0 10*3/uL Normal 0-5 [facility] Comment on above: Performed By: #### L 100.0100, L500.2500, L501.6901 ####[facility] [address] [place], [address] Platelet mean volume (Bld) [Entitic vol] 12.9 fL High 6.2-12.0 [facility] Comment on above: Performed By: #### L 100.0100, L500.2500, L501.6901 ####[facility] [address] [place], [address] Platelets (Bld) [#/Vol] 159 10*3/uL Normal 150-450 [facility] Comment on above: Performed By: #### L 100.0100, L500.2500, L501.6901 ####[facility] [address] [place], [address] RBC (Bld) [#/Vol] 4.35 10*6/uL Normal 4.2-5.4 [facility] Comment on above: Performed By: #### L 100.0100, L500.2500, L501.6901 ####[facility] [address] [place], [address] RDW SD 41.8 fl Normal 35.1-43.9 [facility] Comment on above: Performed By: #### L 100.0100, L500.2500, L501.6901 ####[facility] [address] [place], [address] WBC (Bld) [#/Vol] 5.5 10*3/uL Normal 4.4-11.[address] [facility] Comment on above: Performed By: #### L 100.0100, L500.2500, L501.6901 ####[facility] [address] [place], [address] CNPNon 10-19-2024 CNPN Normal [facility] Carbon dioxide, total [Moles /volume] in Central venous bloodOrdered By: Holland Sanches on 10-19-2024 CO2 [Moles/Vol] 23.3 mmol/L 21.0-32.0 [facility] Chloride assayOrdered By: Michael Sanches on 10-19-2024 Chloride [Moles/Vol] 101 mmol/L 98-108 [facility] Emergency Department Summary on 10-19-2024 Emergency Department Summary Normal [facility] Eosinophil percentageOrdered By: Holland Sanches on 10-19-2024 Eosinophils/100 WBC (Bld) 2.5 % 0-5 [facility] Epithelial cells.squamous LM Ql (Urine sed)Ordered By: Holland Sanches on 10-19-2024 Epithelial cells.squamous LM.HPF (Urine sed) [#/Area] 0 /[HPF] 5-10 [facility] Erythrocyte distribution wid th (RBC) [Ratio]Ordered By: Holland Sanches on 10-19-2024 Erythrocyte distribution width (RBC) [Entitic vol] 41.8 fL 35.1-43.9 [facility] Erythrocyte distribution wid th ratioOrdered By: Holland Sanches on 10-19-2024 Erythrocyte distribution width (RBC) [Ratio] 12.7 % 11.6-14.6 [facility] Erythrocyte distribution wid th standard deviationOrdered By: Holland Sanches on 10-19-2024 Erythrocyte distribution width (RBC) [Ratio] 41.8 fl 35.1-43.9 [facility] Estimation of creatinine kimberly aranceOrdered By: Holland Sanches on 10-19-2024 Estimated Creatinine Clearance Calc 79.68 ml/min 50-250 [facility] GFR/1.73 sq M.predicted du g non-blacks MDRD (S/P/Bld) [Vol rate/Area]Ordered By: Holland Sanches on 10-19-2024 Estimated GFR (MDRD) Non-Af Amer 72 >60 [facility] Comment on above: mL/min/1.73m2 CKD-EP I Creatinine Equation (2020) Glomerular filtration rate ( GFR) estimation/1.73 sq m using serum, plasma, or whole bOrdered By: Holland Sanches on 10-19-2024 GFR/1.73 sq M.predicted among non-blacks MDRD (S/P/Bld) [Vol rate/Area] 72 mL/min/{1.73_m2} >60 [facility] Comment on above: mL/min/1.73m2 CKD-EP I Creatinine Equation (2020) Glucose Ql (U)Ordered By: Michael Sanches on 10-19-2024 Glucose (U) [Mass/Vol] 1000 mg/dL High Normal [facility] Glucose measurement at bedsi deOrdered By: Holland Sanches on 10-19-2024 Bedside Glucose (Misc Panel) 320 mg/dL High 74-106 [facility] Comment on above: MANAGEMENT OF PATIEN T CARE PER NURSING PROTOCOL Glucose [Mass/Vol] 320 mg/dL High 74-[address] [facility] Comment on above: MANAGEMENT OF PATIEN T CARE PER NURSING PROTOCOL HIP, UNI W/ Pelvis 2-3 Views on 10-19-2024 HIP, UNI W/ Pelvis 2-3 Views Normal [facility] Hematocrit Auto (Bld) [Volum e fraction]Ordered By: Holland Sanches on 10-19-2024 Hematocrit (Bld) [Volume fraction] 39.4 % 37-47 [facility] Hemoglobin measurementOrdere d By: Holland Sanches on 10-19-2024 Hemoglobin (Bld) [Mass/Vol] 12.9 g/dL 12.0-15.0 [facility] Immature granulocytes/100 WB C Auto (Bld)Ordered By: Holland Sanches on 10-19-2024 Immature granulocytes/100 WBC (Bld) 0.000 % 0.0-0.9 [facility] Comment on above: IG% - Immature Granu locytes (promyelocytes, myelocytes and metamyelocytes) > 1% indicates that a LEFT SHIFT is Present. Ketones Test strip Ql (U)Ord ered By: Holland Sanches on 10-19-2024 Ketones Ql (U) 50 mg/dl High Negative [facility] Lymphocytes Auto (Unsp spec) [#/Vol]Ordered By: Holland Sanches on 10-19-2024 Lymphocytes (Bld) [#/Vol] 0.79 10*3/uL Low 0.83-4.51 [facility] Lymphocytes/100 WBC Auto (Un sp spec)Ordered By: Holland Sanches on 10-19-2024 Lymphocytes/100 WBC (Bld) 14.4 % Low 19-41 [facility] MCV (mean corpuscular volume ) determinationOrdered By: Holland Sanches on 10-19-2024 MCV (RBC) [Entitic vol] 90.6 fL 81-99 [facility] Mean corpuscular hemoglobin (MCH) determinationOrdered By: Holland Sanches on 10-19-2024 MCH (RBC) [Entitic mass] 29.7 pg 27.0-32.0 [facility] Mean corpuscular hemoglobin concentration (MCHC) determinationOrdered By: Holland Sanches on 10-19-2024 MCHC (RBC) [Mass/Vol] 32.7 g/dL 32-36 [facility] Mean platelet volume determi nationOrdered By: Holland Sanches on 10-19-2024 Platelet mean volume (Bld) [Entitic vol] 12.9 fL High 6.2-12.0 [facility] Microscopic analysis of urin e for red blood cells (RBC)Ordered By: Holland Sanches on 10-19-2024 Microscopic analysis of urine for red blood cells (RBC) 0 SEEN /hpf 0-5 [facility] Urine RBC 0 SEEN /hpf 0-5 [facility] Monocyte percentageOrdered B y: Hloland Sanches on 10-19-2024 Monocytes/100 WBC (Bld) 6.4 % 0-10 [facility] Mucus LM Ql (Urine sed)Order ed By: Holland Sanches on 10-19-2024 Mucus Ql (Urine sed) 0 SEEN /hpf [facility] Neutrophil percentageOrdered By: Holland Sanches on 10-19-2024 Neutrophils/100 WBC (Bld) 76.2 % High 47-70 [facility] Nitrite Test strip Ql (U)Ord ered By: Holland Sanches on 10-19-2024 Nitrite Ql (U) Negative Negative [facility] Nucleated red blood cell per centageOrdered By: Holland Sanches on 10-19-2024 Nucleated RBC/100 WBC (Bld) [Ratio] 0 % 0-5 [facility] Platelet countOrdered By: Michael Sanches on 10-19-2024 Platelets (Bld) [#/Vol] 159 10*3/uL 150-450 [facility] Potassium (Unsp spec) [Mass/ Vol]Ordered By: Holland Sanches on 10-19-2024 Potassium [Moles/Vol] 4.5 mmol/L 3.3-5.1 [facility] Potassium measurement (mass/ volume)Ordered By: Holland Sanches on 10-19-2024 Potassium (Unsp spec) [Mass/Vol] 4.5 mmol/L 3.3-5.1 [facility] Protein Test strip Ql (U)Ord ered By: Holland Sanches on 10-19-2024 Protein Ql (U) Negative Negative [facility] RBC Auto (Bld) [#/Vol]Ordere d By: Holland Sanches on 10-19-2024 RBC (Bld) [#/Vol] 4.35 10*6/uL 4.2-5.4 [facility] Serum creatinine measurement (mass/volume)Ordered By: Holland Sanches on 10-19-2024 Creatinine [Mass/Vol] 0.83 mg/dL 0.70-1.20 [facility] Serum glucose measurement (m ass/volume)Ordered By: Holland Sanches on 10-19-2024 Glucose [Mass/Vol] 334 mg/dL High 70-[address] [facility] Serum or plasma calcium zora urement (mass/volume)Ordered By: Holland Sanches on 10-19-2024 Calcium [Mass/Vol] 9.3 mg/dL 7.6-11.[address] [facility] Serum or plasma urea nitroge n measurement (mass/volume)Ordered By: Holland Sanches on 10-19-2024 Urea nitrogen [Mass/Vol] 19 mg/dL 4-19 [facility] Sodium levelOrdered By: Frank Sanches on 10-19-2024 Sodium [Moles/Vol] 136 mmol/L 133-[address] [facility] Squamous epithelial cells de tection in urine sediment by light microscopyOrdered By: Holland Sanches on 10-19-2024 Epithelial cells.squamous LM Ql (Urine sed) 0 SEEN /hpf 5-10 [facility] Urinalysis, Completeon 10-19 WBC 0-5 SEEN Normal 0-5 [facility] Comment on above: Order Comment: CLEAN CATCH Performed By: #### L 400.0001 ####[facility] [address] [place], [address] BACTERIA 0 SEEN Normal None Seen [facility] Comment on above: Order Comment: CLEAN CATCH Performed By: #### L 400.0001 ####[facility] [address] [place], [address] EPI,SQUAMOUS 0 SEEN Normal 5-10 [facility] Comment on above: Order Comment: CLEAN CATCH Performed By: #### L 400.0001 ####[facility] [address] [place], [address] Mucus Ql (Urine sed) 0 SEEN Normal [facility] Comment on above: Order Comment: CLEAN CATCH Performed By: #### L 400.0001 ####[facility] [address] [place], [address] RBC 0 SEEN Normal 0-5 [facility] Comment on above: Order Comment: CLEAN CATCH Performed By: #### L 400.0001 ####[facility] [address] [place], [place], [address] Urine blood detectionOrdered By: Holland Sanches on 10-19-2024 Urine Occult Blood 10 /ul High Negative [facility] Urine clarityOrdered By: Fahad Sanches on 10-19-2024 Clarity (U) Clear Clear [facility] Urine color determinationOrd ered By: Holland Sanches on 10-19-2024 Color (U) Yellow Yellow [facility] Urine glucose detectionOrder ed By: Holland Sanches on 10-19-2024 Glucose Ql (U) 1000 mg/dl High Normal [facility] Urine leukocyte esterase det ection by dipstickOrdered By: Holland Sanches on 10-19-2024 Leukocyte esterase Test strip Ql (U) 25 /ul High Negative [facility] Urine pHOrdered By: Holland saunders on 10-19-2024 pH (U) 6.0 [pH] 5.0 - 8.0 [facility] Urine sediment bacteria coun t by microscopy (number/high power field)Ordered By: Holland Sanches on 10-19-2024 Bacteria LM.HPF (Urine sed) [#/Area] 0 /[HPF] None Seen [facility] Urine specific gravity measu rementOrdered By: Holland Sanches on 10-19-2024 Specific gravity (U) [Rel density] 1.015 1.002-1.030 [facility] Urine urobilinogen measureme ntOrdered By: Holland Sanches on 10-19-2024 Urobilinogen Ql (U) Normal mg/dl Normal [facility] Urobilinogen Ql (U)Ordered B y: Holland Sanches on 10-19-2024 Urine Urobilinogen Normal mg/dl Normal [facility] White blood cell (WBC) count Ordered By: Holland Sanches on 10-19-2024 WBC (Bld) [#/Vol] 5.5 10*3/uL 4.4-11.[address] [facility] White blood cell countOrdere d By: Holland Sanches on 10-19-2024 Urine WBC 0-5 SEEN /hpf 0-5 [facility] White blood cell count 0-5 SEEN /hpf 0-5 [facility] CNOVon 10-15-2024 CNOV Normal [facility] CNPNon 10-04-2024 CNPN Normal [facility] ALBUMIN/CREATININE RATIO, UR INEon 10-01-2024 Albumin DL <= 20 mg/L (U) [Mass/Vol] mg/dL Normal [facility] Comment on above: Order Comment: Speci men Type: URINE SPECIMENOrdering Facility: [facility] Address: [address] [place] [address] Performed By: #### U ACR ####[facility] LABCLIA [id number] [place] [address] [place] Albumin/Creatinine (U) [Mass ratio] <27 Normal <30 [facility] Comment on above: Order Comment: Speci men Type: URINE SPECIMENOrdering Facility: [facility] Address: [address] [place] [address] Result Comment: Adul t Male and Female Nephrotic Criteria:<30 mg/g is considered normal to mildly gapwtbkzh37-834 mg/g is considered moderately increased>300 mg/g is considered severely increasedKDIGO. (2013). KDIGO 2012 Clinical Practice Guideline for the Evaluation and Management of Chronic Kidney Disease. Official Journal of the International Society of Nephrology, 3(1), 1-150. Performed By: #### U ACR ####[facility] LABCLIA [id number] [place] [id number] [place] Creatinine (U) [Mass/Vol] 44.9 mg/dL Normal 20.0-300.0 [facility] Comment on above: Order Comment: Speci men Type: URINE SPECIMENOrdering Facility: [facility] Address: [address] [place] [address] Performed By: #### U ACR ####[facility] LABCLIA [id number] [place] [address] [place] CBC panel Auto (Bld)on 10-01 Erythrocyte distribution width (RBC) [Ratio] 12.9 % Normal 11.5-15.0 [facility] Comment on above: Order Comment: Speci men Type: BLOOD SPECIMENOrdering Facility: [facility] Address: [address] [place] [address] Performed By: #### 5 8410-2 ####[facility] [id number] [address] [place] Hematocrit (Bld) [Volume fraction] 39.1 % Normal 36.0-46.0 [facility] Comment on above: Order Comment: Speci men Type: BLOOD SPECIMENOrdering Facility: [facility] Address: [address] [place] [address] Performed By: #### 5 8410-2 ####[facility] [id number] [place] [address] [place] Hemoglobin (Bld) [Mass/Vol] 12.9 g/dL Normal 11.5-15.5 [facility] Comment on above: Order Comment: Speci men Type: BLOOD SPECIMENOrdering Facility: [facility] Address: [address] [place] [address] Performed By: #### 5 8410-2 ####[facility] [id number] [place] [address] [place] MCH (RBC) [Entitic mass] 29.7 pg Normal 26.0-34.0 [facility] Comment on above: Order Comment: Speci men Type: BLOOD SPECIMENOrdering Facility: [facility] Address: [address] [place] [address] Performed By: #### 5 8410-2 ####[facility] IRENE [id number] [place] [address] [place] MCHC (RBC) [Mass/Vol] 33.0 g/dL Normal 30.5-36.0 [facility] Comment on above: Order Comment: Speci men Type: BLOOD SPECIMENOrdering Facility: [facility] Address: [address] [place], [place] [address] Performed By: #### 5 8410-2 ####[facility] MATTHEWCLAM GULCHNCDANIELA [id number] [place] [address] [place] MCV (RBC) [Entitic vol] 90.1 fL Normal 80.0-100.0 [facility] Comment on above: Order Comment: Speci men Type: BLOOD SPECIMENOrdering Facility: [facility] Address: [address] [place] [address] Performed By: #### 5 8410-2 ####[facility] NASSAUNCA [id number] [place] [address] [place] Nucleated RBC (Bld) [#/Vol] 10*3/uL Normal <0.01 [facility] Comment on above: Order Comment: Speci men Type: BLOOD SPECIMENOrdering Facility: [facility] Address: [address] [place] [address] Performed By: #### 5 8410-2 ####[facility] NASSAUNCLIA [id number] [place] [address] [place] Platelet mean volume (Bld) [Entitic vol] 11.9 fL Normal 9.0-12.7 [facility] Comment on above: Order Comment: Speci men Type: BLOOD SPECIMENOrdering Facility: [facility] Address: [address] [place] [address] Performed By: #### 5 8410-2 ####[facility] MATTHEWWNCLIA [id number] [place] [address] [place] Platelets (Bld) [#/Vol] 206 10*3/uL Normal 150-400 [facility] Comment on above: Order Comment: Speci men Type: BLOOD SPECIMENOrdering Facility: [facility] Address: [address] [place], [place] [address] Performed By: #### 5 8410-2 ####[facility] MATTHEWCLAM GULCHNCLIA [id number] [place] [address] [place] RBC (Bld) [#/Vol] 4.34 10*6/uL Normal 3.90-5.20 [facility] Comment on above: Order Comment: Speci men Type: BLOOD SPECIMENOrdering Facility: [facility] Address: [address] [place], [place] [address] Performed By: #### 5 8410-2 ####[facility] NASSAUNCLIA [id number] [place] [address] [place] WBC (Bld) [#/Vol] 6.04 10*3/uL Normal 3.70-11.00 [facility] Comment on above: Order Comment: Speci men Type: BLOOD SPECIMENOrdering Facility: [facility] Address: [address] [place], [place] [address] Performed By: #### 5 8410-2 ####[facility] NASSAUNCLIA [id number] [place] [address] [place] CNCNPATEDon 10-01-2024 CNCNPATED Normal [facility] Comprehensive metabolic 2000 panelon 10-01-2024 Albumin [Mass/Vol] 3.9 g/dL Normal 3.9-4.9 [facility] Comment on above: Order Comment: Speci men Type: BLOOD SPECIMENOrdering Facility: [facility] Address: [address] [place] [address] Performed By: #### 2 4323-8 ####[facility] MILLTOWNCLIA [id number] [place] [address] [place] ALP [Catalytic activity/Vol] 74 U/L Normal 34-123 [facility] Comment on above: Order Comment: Speci men Type: BLOOD SPECIMENOrdering Facility: [facility] Address: [address] [place] [address] Performed By: #### 2 4323-8 ####[facility] MILLTOWNCLIA [id number] [place] [address] [place] ALT [Catalytic activity/Vol] 21 U/L Normal 7-38 [facility] Comment on above: Order Comment: Speci men Type: BLOOD SPECIMENOrdering Facility: [facility] Address: [address] [place] [address] Performed By: #### 2 4323-8 ####[facility] [id number] [place] [address] [place] Anion gap [Moles/Vol] 9 mmol/L Normal 8-15 [facility] Comment on above: Order Comment: Speci men Type: BLOOD SPECIMENOrdering Facility: [facility] Address: [address] [place] [address] Performed By: #### 2 4323-8 ####[facility] MILLTOWNCLIA [id number] [place] [address] [place] AST [Catalytic activity/Vol] 21 U/L Normal 13-35 [facility] Comment on above: Order Comment: Speci men Type: BLOOD SPECIMENOrdering Facility: [facility] Address: [address] [place] [address] Performed By: #### 2 4323-8 ####[facility] MILLTOWNCLIA [id number] [place] [address] [place] Bilirubin [Mass/Vol] 0.6 mg/dL Normal 0.2-1.3 [facility] Comment on above: Order Comment: Speci men Type: BLOOD SPECIMENOrdering Facility: [facility] Address: [address] [place] [address] Performed By: #### 2 4323-8 ####[facility] MILLWAKLIA [id number] [place] [address] [place] Calcium [Mass/Vol] 9.4 mg/dL Normal 8.5-10.2 [facility] Comment on above: Order Comment: Speci men Type: BLOOD SPECIMENOrdering Facility: [facility] Address: [address] [place] [address] Performed By: #### 2 4323-8 ####[facility] NASSAUNCLIA [id number] [place] [address] [place] Chloride [Moles/Vol] 102 mmol/L Normal 98-107 [facility] Comment on above: Order Comment: Speci men Type: BLOOD SPECIMENOrdering Facility: [facility] Address: [address] [place] [address] Performed By: #### 2 4323-8 ####[facility]ENTER[facility] [id number] [place] [address] [place] CO2 [Moles/Vol] 29 mmol/L Normal 22-30 [facility] Comment on above: Order Comment: Speci men Type: BLOOD SPECIMENOrdering Facility: [facility] Address: [address] [place] [address] Performed By: #### 2 4323-8 ####[facility] MILLELKHART GENERAL HOSPITALLIA [id number] [place] [address] [place] Creatinine [Mass/Vol] 0.69 mg/dL Normal 0.58-0.96 [facility] Comment on above: Order Comment: Speci men Type: BLOOD SPECIMENOrdering Facility: [facility] Address: [address] [place] [address] Performed By: #### 2 4323-8 ####[facility] [id number] [place] [address] [place] Creatinine and Glomerular filtration rate.predicted panel (S/P/Bld) 88 mL/min/1.73m??? Normal >=60 [facility] Comment on above: Order Comment: Ruma deluna Type: BLOOD SPECIMENOrdering Facility: [facility] Address: [address] [place] [address] Result Comment: Judith mated Glomerular Filtration Rate [...] actual GFR. Performed By: #### 2 4323-8 ####[facility] [id number] [place] [address] [place] Glucose [Mass/Vol] 173 mg/dL High 74-99 [facility] Comment on above: Order Comment: Ruma deluna Type: BLOOD SPECIMENOrdering Facility: [facility] Address: [address] [place] [address] Result Comment: The [place] Diabetes Association (ADA) provides guidance for cutoff [...] Standards of Medical Care in Diabetes 2016, [place] [employer]. Diabetes Care. 2016.39(Suppl 1). Performed By: #### 2 4323-8 ####[facility] MILLTOWNCLIA [id number] [place] [address] [place] Potassium [Moles/Vol] 4.4 mmol/L Normal 3.7-5.1 [facility] Comment on above: Order Comment: Speci men Type: BLOOD SPECIMENOrdering Facility: [facility] Address: [address] [place] [address] Performed By: #### 2 4323-8 ####[facility] MILLTOWNCLIA [id number] [place] [address] [place] Protein [Mass/Vol] 6.5 g/dL Normal 6.3-8.0 [facility] Comment on above: Order Comment: Speci men Type: BLOOD SPECIMENOrdering Facility: [facility] Address: [address] [place] [address] Performed By: #### 2 4323-8 ####[facility] NASSAUNCLIA [id number] [place] [address] [place] Sodium [Moles/Vol] 140 mmol/L Normal 136-144 [facility] Comment on above: Order Comment: Speci men Type: BLOOD SPECIMENOrdering Facility: [facility] Address: [address] [place] [address] Performed By: #### 2 4323-8 ####[facility] MILLTOWNCLIA [id number] [place] [address] [place] Urea nitrogen [Mass/Vol] 17 mg/dL Normal 7-21 [facility] Comment on above: Order Comment: Speci men Type: BLOOD SPECIMENOrdering Facility: [facility] Address: [address] [place], [place] [address] Performed By: #### 2 4323-8 ####[facility] MILLWNCLIA [id number] [place] [address] [place] CNPNon 09-27-2024 CNPN Normal [facility] CNOVon 09-26-2024 CNOV Normal [facility] Absolute lymphocyte countOrd ered By: Amber Martino on 09-23-2024 Lymphocytes Auto (Unsp spec) [#/Vol] 0.69 10*3/uL Low 0.83-4.51 [facility] Absolute neutrophil countOrd ered By: Amber Martino on 09-23-2024 Neutrophils (Bld) [#/Vol] 2.7 10*3/uL 2.0-7.7 [facility] Anion gap in Serum or Plasma Ordered By: Amber Martino on 09-23-2024 Anion gap [Moles/Vol] 11 mmol/L 5-15 [facility] Automated lymphocyte count a s percentage of total leukocytesOrdered By: Amber Martino on 09-23-2024 Lymphocytes/100 WBC Auto (Unsp spec) 17.6 % Low 19-41 [facility] BUN/creatinine ratioOrdered By: Amber Martino on 09-23-2024 Urea nitrogen/Creatinine [Mass ratio] 20.4 mg/mg High 10-20 [facility] Basic Metabolic Profile (BMP )on 09-23-2024 BUN/CRE 20.4 RATIO High 10-20 [facility] Comment on above: Performed By: #### L 100.0100, L500.2500 ####[facility] [address] [place], [address] Calcium [Mass/Vol] 8.5 mg/dL Normal 7.6-11.[address] [facility] Comment on above: Performed By: #### L 100.0100, L500.2500 ####[facility] [address] [place], [address] Chloride [Moles/Vol] 106 mmol/L Normal 98-108 [facility] Comment on above: Performed By: #### L 100.0100, L500.2500 ####[facility] [address] [place], [address] CO2 [Moles/Vol] 21.6 mmol/L Normal 21.0-32.0 [facility] Comment on above: Performed By: #### L 100.0100, L500.2500 ####[facility] [address] [place], [address] Creatinine [Mass/Vol] 0.70 mg/dL Normal 0.70-1.20 [facility] Comment on above: Performed By: #### L 100.0100, L500.2500 ####[facility] [address] [place], [address] ECRCL 84.46 ml/min Normal 50-250 [facility] Comment on above: Performed By: #### L 100.0100, L500.2500 ####[facility] [address] [place], [address] GAP 11 Normal 5-15 [facility] Comment on above: Performed By: #### L 100.0100, L500.2500 ####[facility] [address] [place], [address] GFR/1.73 sq M.predicted among non-blacks MDRD (S/P/Bld) [Vol rate/Area] 88 mL/min/{1.73_m2} Normal >60 [facility] Comment on above: Result Comment: mL/m in/1.73m2 CKD-EPI Creatinine Equation (2020) Performed By: #### L 100.0100, L500.2500 ####[facility] [address] [place], [address] Glucose [Mass/Vol] 125 mg/dL High 70-[address] [facility] Comment on above: Performed By: #### L 100.0100, L500.2500 ####[facility] [address] [place], [address] Potassium [Moles/Vol] 3.7 mmol/L Normal 3.3-5.1 [facility] Comment on above: Performed By: #### L 100.0100, L500.2500 ####[facility] [address] [place], [address] Sodium [Moles/Vol] 139 mmol/L Normal 133-[address] [facility] Comment on above: Performed By: #### L 100.0100, L500.2500 ####[facility] [address] [place], [address] Urea nitrogen [Mass/Vol] 14 mg/dL Normal 4-19 [facility] Comment on above: Performed By: #### L 100.0100, L500.2500 ####[facility] [address] [place], [address] Basophil percentageOrdered B y: Amber Martino on 09-23-2024 Basophils/100 WBC (Bld) 0.3 % 0-1 [facility] CBC W/Diff, Automatedon 03-0 Absolute Lymph 0.69 X10 3/uL Low 0.83-4.51 [facility] Comment on above: Performed By: #### L 100.0100, L500.2500 ####[facility] [address] [place], [address] Absolute Neut 2.7 X10 3/uL Normal 2.0-7.7 [facility] Comment on above: Performed By: #### L 100.0100, L500.2500 ####[facility] [address] [place], [address] Basophils/100 WBC (Bld) 0.3 % Normal 0-1 [facility] Comment on above: Performed By: #### L 100.0100, L500.2500 ####[facility] [address] [place], [address] Eosinophils/100 WBC (Bld) 1.5 % Normal 0-5 [facility] Comment on above: Performed By: #### L 100.0100, L500.2500 ####[facility] [address] [place], [address] Erythrocyte distribution width (RBC) [Ratio] 13.0 % Normal 11.6-14.6 [facility] Comment on above: Performed By: #### L 100.0100, L500.2500 ####[facility] [address] [place], [address] Hematocrit (Bld) [Volume fraction] 35.9 % Low 37-47 [facility] Comment on above: Performed By: #### L 100.0100, L500.2500 ####[facility] [address] [place], [address] Hemoglobin (Bld) [Mass/Vol] 11.9 g/dL Low 12.0-15.0 [facility] Comment on above: Performed By: #### L 100.0100, L500.2500 ####[facility] [address] [place], [address] IG% 0.300 Normal 0.0-0.9 [facility] Comment on above: Result Comment: IG% - Immature Granulocytes (promyelocytes, myelocytes andmetamyelocytes) > 1% indicates that a LEFT SHIFT is Present. Performed By: #### L 100.0100, L500.2500 ####[facility] [address] [place], [address] Lymphocytes/100 WBC (Bld) 17.6 % Low 19-41 [facility] Comment on above: Performed By: #### L 100.0100, L500.2500 ####[facility] [address] [place], [address] MCH (RBC) [Entitic mass] 29.4 pg Normal 27.0-32.0 [facility] Comment on above: Performed By: #### L 100.0100, L500.2500 ####[facility] [address] [place], [address] MCHC (RBC) [Mass/Vol] 33.1 g/dL Normal 32-36 [facility] Comment on above: Performed By: #### L 100.0100, L500.2500 ####[facility] [address] [place], [address] MCV (RBC) [Entitic vol] 88.6 fL Normal 81-99 [facility] Comment on above: Performed By: #### L 100.0100, L500.2500 ####[facility] [address] [place], [address] Monocytes/100 WBC (Bld) 12.7 % High 0-10 [facility] Comment on above: Performed By: #### L 100.0100, L500.2500 ####[facility] [address] [place], [address] Neutrophils/100 WBC (Bld) 67.6 % Normal 47-70 [facility] Comment on above: Performed By: #### L 100.0100, L500.2500 ####[facility] [address] [place], [address] Nucleated RBC (Bld) [#/Vol] 0 10*3/uL Normal 0-5 [facility] Comment on above: Performed By: #### L 100.0100, L500.2500 ####[facility] [address] [place], [address] Platelet mean volume (Bld) [Entitic vol] 12.3 fL High 6.2-12.0 [facility] Comment on above: Performed By: #### L 100.0100, L500.2500 ####[facility] [address] [place], [address] Platelets (Bld) [#/Vol] 169 10*3/uL Normal 150-450 [facility] Comment on above: Performed By: #### L 100.0100, L500.2500 ####[facility] [address] [place], [address] RBC (Bld) [#/Vol] 4.05 10*6/uL Low 4.2-5.4 [facility] Comment on above: Performed By: #### L 100.0100, L500.2500 ####[facility] [address] [place], [address] RDW SD 42.2 fl Normal 35.1-43.9 [facility] Comment on above: Performed By: #### L 100.0100, L500.2500 ####[facility] [address] [place], [address] WBC (Bld) [#/Vol] 3.9 10*3/uL Low 4.4-11.[address] [facility] Comment on above: Performed By: #### L 100.0100, L500.2500 ####[facility] [address] [place], [address] Carbon dioxide, total [Moles /volume] in Central venous bloodOrdered By: Amber Martino on 09-23-2024 CO2 [Moles/Vol] 21.6 mmol/L 21.0-32.0 [facility] Chloride assayOrdered By: Daniel Martino on 09-23-2024 Chloride [Moles/Vol] 106 mmol/L 98-108 [facility] Emergency Department Summary on 09-23-2024 Emergency Department Summary Normal [facility] Eosinophil percentageOrdered By: Amber Martino on 09-23-2024 Eosinophils/100 WBC (Bld) 1.5 % 0-5 [facility] Erythrocyte distribution wid th ratioOrdered By: Amber Martino on 09-23-2024 Erythrocyte distribution width (RBC) [Ratio] 13.0 % 11.6-14.6 [facility] Erythrocyte distribution wid th standard deviationOrdered By: Amber Martino on 09-23-2024 Erythrocyte distribution width (RBC) [Entitic vol] 42.2 fL 35.1-43.9 [facility] Erythrocyte distribution width (RBC) [Ratio] 42.2 fl 35.1-43.9 [facility] Estimation of creatinine kmiberly aranceOrdered By: Amber Martino on 09-23-2024 Estimated Creatinine Clearance Calc 84.46 ml/min 50-250 [facility] GFR/1.73 sq M.predicted du g non-blacks MDRD (S/P/Bld) [Vol rate/Area]Ordered By: Amber Martino on 09-23-2024 Estimated GFR (MDRD) Non-Af Amer 88 >60 [facility] Comment on above: mL/min/1.73m2 CKD-EP I Creatinine Equation (2020) Glomerular filtration rate ( GFR) estimation/1.73 sq m using serum, plasma, or whole bOrdered By: Amber Martino on 09-23-2024 GFR/1.73 sq M.predicted among non-blacks MDRD (S/P/Bld) [Vol rate/Area] 88 mL/min/{1.73_m2} >60 [facility] Comment on above: mL/min/1.73m2 CKD-EP I Creatinine Equation (2020) Hematocrit Auto (Bld) [Volum e fraction]Ordered By: Amber Martino on 09-23-2024 Hematocrit (Bld) [Volume fraction] 35.9 % Low 37-47 [facility] Hemoglobin measurementOrdere d By: Amber Martino on 09-23-2024 Hemoglobin (Bld) [Mass/Vol] 11.9 g/dL Low 12.0-15.0 [facility] Immature granulocytes/100 WB C Auto (Bld)Ordered By: Amber Martino on 09-23-2024 Immature granulocytes/100 WBC (Bld) 0.300 % 0.0-0.9 [facility] Comment on above: IG% - Immature Granu locytes (promyelocytes, myelocytes and metamyelocytes) > 1% indicates that a LEFT SHIFT is Present. Lower GI hemoglobin IA Ql (S tl)Ordered By: Amber Martino on 09-23-2024 Stool Occult Blood (RABIA) Positive Abnormal [facility] Lymphocytes Auto (Unsp spec) [#/Vol]Ordered By: Amber Martino on 09-23-2024 Lymphocytes (Bld) [#/Vol] 0.69 10*3/uL Low 0.83-4.51 [facility] Lymphocytes/100 WBC Auto (Un sp spec)Ordered By: Amber Martino on 09-23-2024 Lymphocytes/100 WBC (Bld) 17.6 % Low 19-41 [facility] MCV (mean corpuscular volume ) determinationOrdered By: Amber Martino on 09-23-2024 MCV (RBC) [Entitic vol] 88.6 fL 81-99 [facility] Mean corpuscular hemoglobin (MCH) determinationOrdered By: Amber Martino on 09-23-2024 MCH (RBC) [Entitic mass] 29.4 pg 27.0-32.0 [facility] Mean corpuscular hemoglobin concentration (MCHC) determinationOrdered By: Amber Martino on 09-23-2024 MCHC (RBC) [Mass/Vol] 33.1 g/dL 32-36 [facility] Mean platelet volume determi nationOrdered By: Amber Martino on 09-23-2024 Platelet mean volume (Bld) [Entitic vol] 12.3 fL High 6.2-12.0 [facility] Monocyte percentageOrdered B y: Amber Martino on 09-23-2024 Monocytes/100 WBC (Bld) 12.7 % High 0-10 [facility] Neutrophil percentageOrdered By: Amber Martino on 09-23-2024 Neutrophils/100 WBC (Bld) 67.6 % 47-70 [facility] Nucleated red blood cell per centageOrdered By: Amber Martino on 09-23-2024 Nucleated RBC/100 WBC (Bld) [Ratio] 0 % 0-5 [facility] Platelet countOrdered By: Daniel Martino on 09-23-2024 Platelets (Bld) [#/Vol] 169 10*3/uL 150-450 [facility] Potassium (Unsp spec) [Mass/ Vol]Ordered By: Amber Martino on 09-23-2024 Potassium [Moles/Vol] 3.7 mmol/L 3.3-5.1 [facility] Potassium measurement (mass/ volume)Ordered By: Amber Martino on 09-23-2024 Potassium (Unsp spec) [Mass/Vol] 3.7 mmol/L 3.3-5.1 [facility] RBC Auto (Bld) [#/Vol]Ordere d By: Amber Martino on 09-23-2024 RBC (Bld) [#/Vol] 4.05 10*6/uL Low 4.2-5.4 [facility] Serum creatinine measurement (mass/volume)Ordered By: Amber Martino on 09-23-2024 Creatinine [Mass/Vol] 0.70 mg/dL 0.70-1.20 [facility] Serum glucose measurement (m ass/volume)Ordered By: Amber Martino on 09-23-2024 Glucose [Mass/Vol] 125 mg/dL High 70-[address] [facility] Serum or plasma calcium zora urement (mass/volume)Ordered By: Amber Martino on 09-23-2024 Calcium [Mass/Vol] 8.5 mg/dL 7.6-11.[address] [facility] Serum or plasma urea nitroge n measurement (mass/volume)Ordered By: Amber Martino on 09-23-2024 Urea nitrogen [Mass/Vol] 14 mg/dL 4-19 [facility] Sodium levelOrdered By: Amber Martino on 09-23-2024 Sodium [Moles/Vol] 139 mmol/L 133-[address] [facility] Stool Occult Blood iFOBon STOB Positive Normal [facility] Comment on above: Performed By: #### M 100.7900 ####[facility] [address] [place], [address] Stool gastrointestinal hemog lobin detection by immunologic methodOrdered By: Amber Martino on 09-23-2024 Lower GI hemoglobin IA Ql (Stl) Positive Abnormal [facility] White blood cell (WBC) count Ordered By: Amber Martino on 09-23-2024 WBC (Bld) [#/Vol] 3.9 10*3/uL Low 4.4-11.[address] [facility] Urine Cultureon 09-22-2024 URC Mixed Gram Positive Organisms [place] Count 11,000-25,000 MIXC Mixed contaminants. Submit a new specimen if indicated. Normal [facility] Comment on above: Performed By: #### M 100.2200 ####[facility] [address] [place], [address] Anion gap in Serum or Plasma Ordered By: Holland Sanches on 09-21-2024 Anion gap [Moles/Vol] 14 mmol/L 5-15 [facility] BUN/creatinine ratioOrdered By: Holland Sanches on 09-21-2024 Urea nitrogen/Creatinine [Mass ratio] 29.0 mg/mg High 10-20 [facility] Basic Metabolic Profile (BMP )on 09-21-2024 BUN/CRE 29.0 RATIO High -20 [facility] Comment on above: Performed By: #### L 500.2500 ####[facility] [address] [place], [address] Calcium [Mass/Vol] 8.3 mg/dL Normal 7.6-11.[address] [facility] Comment on above: Performed By: #### L 500.2500 ####[facility] [address] [place], [address] Chloride [Moles/Vol] 97 mmol/L Low 98-108 [facility] Comment on above: Performed By: #### L 500.2500 ####[facility] [address] [place], [address] CO2 [Moles/Vol] 20.7 mmol/L Low 21.0-32.0 [facility] Comment on above: Performed By: #### L 500.2500 ####[facility] [address] [place], [address] Creatinine [Mass/Vol] 1.24 mg/dL High 0.70-1.20 [facility] Comment on above: Performed By: #### L 500.2500 ####[facility] [address] [place], [address] ECRCL 54.31 ml/min Normal 50-250 [facility] Comment on above: Performed By: #### L 500.2500 ####[facility] [address] [place], [address] GAP 14 Normal 5-15 [facility] Comment on above: Performed By: #### L 500.2500 ####[facility] [address] [place], [address] GFR/1.73 sq M.predicted among non-blacks MDRD (S/P/Bld) [Vol rate/Area] 44 mL/min/{1.73_m2} Low >60 [facility] Comment on above: Result Comment: mL/m in/1.73m2 CKD-EPI Creatinine Equation (2020) Performed By: #### L 500.2500 ####[facility] [address] [place], [address] Glucose [Mass/Vol] 433 mg/dL High 70-[address] [facility] Comment on above: Performed By: #### L 500.2500 ####[facility] [address] [place], [address] Potassium [Moles/Vol] 3.8 mmol/L Normal 3.3-5.1 [facility] Comment on above: Performed By: #### L 500.2500 ####[facility] [address] [place], [address] Sodium [Moles/Vol] 132 mmol/L Low 133-[address] [facility] Comment on above: Performed By: #### L 500.2500 ####[facility] [address] [place], [address] Urea nitrogen [Mass/Vol] 36 mg/dL High 4-19 [facility] Comment on above: Performed By: #### L 500.2500 ####[facility] [address] [place], [address] Bedside Glucoseon 09-21-2024 FINGERSTICK GLU 297 mg/dL High 74-106 [facility] Comment on above: Result Comment: MECREDES GEMENT OF PATIENT CARE PER NURSING PROTOCOL Performed By: #### L 501.080 ####[facility] [address] [place], [address] FINGERSTICK GLU 428 mg/dL High 74-106 [facility] Comment on above: Result Comment: MERCEDES GEMENT OF PATIENT CARE PER NURSING PROTOCOL Performed By: #### L 501.080 ####[facility] [address] [place], [address] FINGERSTICK GLU 392 mg/dL High 74-106 [facility] Comment on above: Result Comment: MERCEDES GEMENT OF PATIENT CARE PER NURSING PROTOCOL Performed By: #### L 501.080 ####[facility] [address] [place], [address] CNPNon 09-21-2024 CNPN Normal [facility] Carbon dioxide, total [Moles /volume] in Central venous bloodOrdered By: Holland Sanches on 09-21-2024 CO2 [Moles/Vol] 20.7 mmol/L Low 21.0-32.0 [facility] Chloride assayOrdered By: Michael Sanches on 09-21-2024 Chloride [Moles/Vol] 97 mmol/L Low 98-108 [facility] Emergency Department Summary on 09-21-2024 Emergency Department Summary Normal [facility] Estimation of creatinine kimberly aranceOrdered By: Holland Sanches on 09-21-2024 Estimated Creatinine Clearance Calc 54.31 ml/min 50-250 [facility] GFR/1.73 sq M.predicted du g non-blacks MDRD (S/P/Bld) [Vol rate/Area]Ordered By: Holland Sanches on 09-21-2024 Estimated GFR (MDRD) Non-Af Amer 44 Low >60 [facility] Comment on above: mL/min/1.73m2 CKD-EP I Creatinine Equation (2020) Glomerular filtration rate ( GFR) estimation/1.73 sq m using serum, plasma, or whole bOrdered By: Holland Sanches on 09-21-2024 GFR/1.73 sq M.predicted among non-blacks MDRD (S/P/Bld) [Vol rate/Area] 44 mL/min/{1.73_m2} Low >60 [facility] Comment on above: mL/min/1.73m2 CKD-EP I Creatinine Equation (2020) Glucose measurement at [facility] deOrdered By: Holland Sanches on 09-21-2024 Bedside Glucose (Misc Panel) 297 mg/dL High 74-106 [facility] Comment on above: MANAGEMENT OF PATIEN T CARE PER NURSING PROTOCOL Glucose [Mass/Vol] 297 mg/dL High 74-[address] [facility] Comment on above: MANAGEMENT OF PATIEN T CARE PER NURSING PROTOCOL Potassium (Unsp spec) [Mass/ Vol]Ordered By: Holland Sanches on 09-21-2024 Potassium [Moles/Vol] 3.8 mmol/L 3.3-5.1 [facility] Potassium measurement (mass/ volume)Ordered By: Holland Sanches on 09-21-2024 Potassium (Unsp spec) [Mass/Vol] 3.8 mmol/L 3.3-5.1 [facility] Serum creatinine measurement (mass/volume)Ordered By: Holland Sanches on 09-21-2024 Creatinine [Mass/Vol] 1.24 mg/dL High 0.70-1.20 [facility] Serum glucose measurement (m ass/volume)Ordered By: Holland Sanches on 09-21-2024 Glucose [Mass/Vol] 433 mg/dL High 70-[address] [facility] Serum or plasma calcium zora urement (mass/volume)Ordered By: Holland Sanches on 09-21-2024 Calcium [Mass/Vol] 8.3 mg/dL 7.6-11.[address] [facility] Serum or plasma urea nitroge n measurement (mass/volume)Ordered By: Holland Sanches on 09-21-2024 Urea nitrogen [Mass/Vol] 36 mg/dL High 4-19 [facility] Sodium levelOrdered By: Frank Sanches on 09-21-2024 Sodium [Moles/Vol] 132 mmol/L Low 133-[address] [facility] Abdomen/Pelvis W IV Cont ONL Yon 09-20-2024 Abdomen/Pelvis W IV Cont ONLY Normal [facility] Absolute lymphocyte countOrd ered By: Lars Dahl on 09-20-2024 Lymphocytes Auto (Unsp spec) [#/Vol] 0.35 10*3/uL Low 0.83-4.51 [facility] Absolute neutrophil countOrd ered By: Lars Dahl on 09-20-2024 Neutrophils (Bld) [#/Vol] 8.5 10*3/uL High 2.0-7.7 [facility] Amorphous sediment detection in urine sediment by light microscopyOrdered By: Lars Dahl on 09-20-2024 Amorphous sediment LM Ql (Urine sed) 1+ URATE [facility] Anion gap in Serum or Plasma Ordered By: Lars Dahl on 09-20-2024 Anion gap [Moles/Vol] 14 mmol/L 5-15 [facility] Automated lymphocyte count a s percentage of total leukocytesOrdered By: Lars Dahl on 09-20-2024 Lymphocytes/100 WBC Auto (Unsp spec) 3.7 % Low 19-41 [facility] BUN/creatinine ratioOrdered By: Lars Dahl on 09-20-2024 Urea nitrogen/Creatinine [Mass ratio] 32.4 mg/mg High 10-20 [facility] Basophil percentageOrdered B y: Lars Dahl on 09-20-2024 Basophils/100 WBC (Bld) 0.2 % 0-1 [facility] Bedside Glucoseon 09-20-2024 FINGERSTICK GLU 128 mg/dL High 74-106 [facility] Comment on above: Result Comment: MERCEDES SUBRAMANIAN OF PATIENT CARE PER NURSING PROTOCOL Performed By: #### L 501.080 ####[facility] [address] [place], [address] Bilirubin Test strip Ql (U)O rdered By: Lars Dahl on 09-20-2024 Bilirubin Ql (U) 1 mg/dL High Negative [facility] Comment on above: COLOR OF URINE MAY A FFECT DIPSTICK RESULTS. Bilirubin, totalOrdered By: Lars Dahl on 09-20-2024 Bilirubin [Mass/Vol] 1.02 mg/dL 0.00-1.30 [facility] CBC W/Diff, Automatedon Absolute Lymph 0.35 X10 3/uL Low 0.83-4.51 [facility] Comment on above: Performed By: #### L 100.0100, L500.4050, L501.2450 ####[facility] [address] [place], [address] Absolute Neut 8.5 X10 3/uL High 2.0-7.7 [facility] Comment on above: Performed By: #### L 100.0100, L500.4050, L501.2450 ####[facility] [address] [place], [address] Basophils/100 WBC (Bld) 0.2 % Normal 0-1 [facility] Comment on above: Performed By: #### L 100.0100, L500.4050, L501.2450 ####[facility] [address] [place], [address] Eosinophils/100 WBC (Bld) 1.2 % Normal 0-5 [facility] Comment on above: Performed By: #### L 100.0100, L500.4050, L501.2450 ####[facility] [address] [place], [address] Erythrocyte distribution width (RBC) [Ratio] 12.8 % Normal 11.6-14.6 [facility] Comment on above: Performed By: #### L 100.0100, L500.4050, L501.2450 ####[facility] [address] [place], [address] Hematocrit (Bld) [Volume fraction] 41.4 % Normal 37-47 [facility] Comment on above: Performed By: #### L 100.0100, L500.4050, L501.2450 ####[facility] [address] [place], [address] Hemoglobin (Bld) [Mass/Vol] 13.8 g/dL Normal 12.0-15.0 [facility] Comment on above: Performed By: #### L 100.0100, L500.4050, L501.2450 ####[facility] [address] [place], [address] IG% 0.200 Normal 0.0-0.9 [facility] Comment on above: Result Comment: IG% - Immature Granulocytes (promyelocytes, myelocytes andmetamyelocytes) > 1% indicates that a LEFT SHIFT is Present. Performed By: #### L 100.0100, L500.4050, L501.2450 ####[facility] [address] [place], [address] Lymphocytes/100 WBC (Bld) 3.7 % Low 19-41 [facility] Comment on above: Performed By: #### L 100.0100, L500.4050, L501.2450 ####[facility] [address] [place], [address] MCH (RBC) [Entitic mass] 29.8 pg Normal 27.0-32.0 [facility] Comment on above: Performed By: #### L 100.0100, L500.4050, L501.2450 ####[facility] [address] [place], [address] MCHC (RBC) [Mass/Vol] 33.3 g/dL Normal 32-36 [facility] Comment on above: Performed By: #### L 100.0100, L500.4050, L501.2450 ####[facility] [address] [place], [address] MCV (RBC) [Entitic vol] 89.4 fL Normal 81-99 [facility] Comment on above: Performed By: #### L 100.0100, L500.4050, L501.2450 ####[facility] [address] [place], [address] Monocytes/100 WBC (Bld) 4.5 % Normal 0-10 [facility] Comment on above: Performed By: #### L 100.0100, L500.4050, L501.2450 ####[facility] [address] [place], [address] Neutrophils/100 WBC (Bld) 90.2 % High 47-70 [facility] Comment on above: Performed By: #### L 100.0100, L500.4050, L501.2450 ####[facility] [address] [place], [address] Nucleated RBC (Bld) [#/Vol] 0 10*3/uL Normal 0-5 [facility] Comment on above: Performed By: #### L 100.0100, L500.4050, L501.2450 ####[facility] [address] [place], [address] Platelet mean volume (Bld) [Entitic vol] 12.6 fL High 6.2-12.0 [facility] Comment on above: Performed By: #### L 100.0100, L500.4050, L501.2450 ####[facility] [address] [place], [address] Platelets (Bld) [#/Vol] 188 10*3/uL Normal 150-450 [facility] Comment on above: Performed By: #### L 100.0100, L500.4050, L501.2450 ####[facility] [address] [place], [address] RBC (Bld) [#/Vol] 4.63 10*6/uL Normal 4.2-5.4 [facility] Comment on above: Performed By: #### L 100.0100, L500.4050, L501.2450 ####[facility] [address] [place], [address] RDW SD 41.9 fl Normal 35.1-43.9 [facility] Comment on above: Performed By: #### L 100.0100, L500.4050, L501.2450 ####[facility] [address] [place], [address] WBC (Bld) [#/Vol] 9.4 10*3/uL Normal 4.4-11.[address] [facility] Comment on above: Performed By: #### L 100.0100, L500.4050, L501.2450 ####[facility] [address] [place], [address] Carbon dioxide, total [Moles /volume] in Central venous bloodOrdered By: Lars Dahl on 09-20-2024 CO2 [Moles/Vol] 22.7 mmol/L 21.0-32.0 [facility] Chloride assayOrdered By: Lazaro Dahl on 09-20-2024 Chloride [Moles/Vol] 101 mmol/L 98-108 [facility] Comprehensive Metabolic Prof ilon 09-20-2024 Albumin [Mass/Vol] 3.9 g/dL Normal 3.4-4.[address] [facility] Comment on above: Performed By: #### L 100.0100, L500.4050, L501.2450 ####[facility] [address] [place], [address] Albumin/Globulin [Mass ratio] 1.3 {ratio} Normal 0.9-2.4 [facility] Comment on above: Performed By: #### L 100.0100, L500.4050, L501.2450 ####[facility] [address] [place], [address] ALK PHOS 78 U/L Normal 35-104 [facility] Comment on above: Performed By: #### L 100.0100, L500.4050, L501.2450 ####[facility] [address] [place], [address] ALT [Catalytic activity/Vol] 17 U/L Normal <=34 [facility] Comment on above: Performed By: #### L 100.0100, L500.4050, L501.2450 ####[facility] [address] [place], [address] AST [Catalytic activity/Vol] 22 U/L Normal <=31 [facility] Comment on above: Performed By: #### L 100.0100, L500.4050, L501.2450 ####[facility] [address] [place], [address] Bilirubin [Mass/Vol] 1.02 mg/dL Normal 0.00-1.30 [facility] Comment on above: Performed By: #### L 100.0100, L500.4050, L501.2450 ####[facility] [address] [place], [address] BUN/CRE 32.4 RATIO High 10-20 [facility] Comment on above: Performed By: #### L 100.0100, L500.4050, L501.2450 ####[facility] [address] [place], [address] Calcium [Mass/Vol] 9.1 mg/dL Normal 7.6-11.[address] [facility] Comment on above: Performed By: #### L 100.0100, L500.4050, L501.2450 ####[facility] [address] [place], [address] Chloride [Moles/Vol] 101 mmol/L Normal 98-108 [facility] Comment on above: Performed By: #### L 100.0100, L500.4050, L501.2450 ####[facility] [address] [place], [address] CO2 [Moles/Vol] 22.7 mmol/L Normal 21.0-32.0 [facility] Comment on above: Performed By: #### L 100.0100, L500.4050, L501.2450 ####[facility] [address] [place], [address] Creatinine [Mass/Vol] 0.86 mg/dL Normal 0.70-1.20 [facility] Comment on above: Performed By: #### L 100.0100, L500.4050, L501.2450 ####[facility] [address] [place], [address] GAP 14 Normal 5-15 [facility] Comment on above: Performed By: #### L 100.0100, L500.4050, L501.2450 ####[facility] [address] [place], [address] GFR/1.73 sq M.predicted among non-blacks MDRD (S/P/Bld) [Vol rate/Area] 69 mL/min/{1.73_m2} Normal >60 [facility] Comment on above: Result Comment: mL/m in/1.73m2 CKD-EPI Creatinine Equation (2020) Performed By: #### L 100.0100, L500.4050, L501.2450 ####[facility] [address] [place], [address] Globulin (S) [Mass/Vol] 2.9 g/dL Normal 2.2-4.2 [facility] Comment on above: Performed By: #### L 100.0100, L500.4050, L501.2450 ####[facility] [address] [place], [address] Glucose [Mass/Vol] 153 mg/dL High 70-[address] [facility] Comment on above: Performed By: #### L 100.0100, L500.4050, L501.2450 ####[facility] [address] [place], [address] Potassium [Moles/Vol] 4.1 mmol/L Normal 3.3-5.1 [facility] Comment on above: Performed By: #### L 100.0100, L500.4050, L501.2450 ####[facility] [address] [place], [address] Sodium [Moles/Vol] 138 mmol/L Normal 133-[address] [facility] Comment on above: Performed By: #### L 100.0100, L500.4050, L501.2450 ####[facility] [address] [place], [address] T PROT 6.7 g/dL Normal 5.9-8.4 [facility] Comment on above: Performed By: #### L 100.0100, L500.4050, L501.2450 ####[facility] [address] [place], [address] Urea nitrogen [Mass/Vol] 28 mg/dL High 4-19 [facility] Comment on above: Performed By: #### L 100.0100, L500.4050, L501.2450 ####[facility] [address] [place], [address] Emergency Department Summary on 09-20-2024 Emergency Department Summary Normal [facility] Eosinophil percentageOrdered By: Lars Dahl on 09-20-2024 Eosinophils/100 WBC (Bld) 1.2 % 0-5 [facility] Epithelial cells.squamous LM Ql (Urine sed)Ordered By: Lars Dahl on 09-20-2024 Epithelial cells.squamous LM.HPF (Urine sed) [#/Area] 0 /[HPF] 5-10 [facility] Erythrocyte distribution wid th ratioOrdered By: Lars Dahl on 09-20-2024 Erythrocyte distribution width (RBC) [Ratio] 12.8 % 11.6-14.6 [facility] Erythrocyte distribution wid th standard deviationOrdered By: Lars Dahl on 09-20-2024 Erythrocyte distribution width (RBC) [Entitic vol] 41.9 fL 35.1-43.9 [facility] Erythrocyte distribution width (RBC) [Ratio] 41.9 fl 35.1-43.9 [facility] GFR/1.73 sq M.predicted du g non-blacks MDRD (S/P/Bld) [Vol rate/Area]Ordered By: Lars Dahl on 09-20-2024 Estimated GFR (MDRD) Non-Af Amer 69 >60 [facility] Comment on above: mL/min/1.73m2 CKD-EP I Creatinine Equation (2020) Glomerular filtration rate ( GFR) estimation/1.73 sq m using serum, plasma, or whole bOrdered By: Lars Dahl on 09-20-2024 GFR/1.73 sq M.predicted among non-blacks MDRD (S/P/Bld) [Vol rate/Area] 69 mL/min/{1.73_m2} >60 [facility] Comment on above: mL/min/1.73m2 CKD-EP I Creatinine Equation (2020) Glucose Ql (U)Ordered By: Lazaro Dahl on 09-20-2024 Urine Glucose (UA) Normal mg/dl Normal [facility] By: Lars Dahl on 09-20-2024 Bedside Glucose (Misc Panel) 128 mg/dL High 74-106 [facility] Comment on above: MANAGEMENT OF PATIEN T CARE PER NURSING PROTOCOL Glucose [Mass/Vol] 128 mg/dL High 74-[address] [facility] Comment on above: MANAGEMENT OF PATIEN T CARE PER NURSING PROTOCOL Hematocrit Auto (Bld) [Volum e fraction]Ordered By: Lars Dahl on 09-20-2024 Hematocrit (Bld) [Volume fraction] 41.4 % 37-47 [facility] Hemoglobin measurementOrdere d By: Lars Dahl on 09-20-2024 Hemoglobin (Bld) [Mass/Vol] 13.8 g/dL 12.0-15.0 [facility] Immature granulocytes/100 WB C Auto (Bld)Ordered By: Lars Dahl on 09-20-2024 Immature granulocytes/100 WBC (Bld) 0.200 % 0.0-0.9 [facility] Comment on above: IG% - Immature Granu locytes (promyelocytes, myelocytes and metamyelocytes) > 1% indicates that a LEFT SHIFT is Present. Influenza virus A and B and SARS-CoV-2 (COVID-19) and Respiratory syncytial virus RNAOrdered By: Lars Dahl on 09-20-2024 SARS-CoV-2 (COVID-19) RNA RAYMOND+probe Ql (Unsp spec) [facility] SARS-CoV-2 (COVID-19) RNA RAYMOND+probe Ql (Unsp spec) [facility] Ketones Test strip Ql (U)Ord ered By: Lars Dahl on 09-20-2024 Ketones Ql (U) 5 mg/dl High Negative [facility] Laboratory - Chemistry and C hemistry - challengeOrdered By: Lars Dahl on 09-20-2024 AST [Catalytic activity/Vol] 22 U/L <32 [facility] Lipaseon 09-20-2024 Lipase [Catalytic activity/Vol] 12 U/L Low 13-75 [facility] Comment on above: Result Comment: Plea note:LIPASE revised reference range effective 22.New Lipase methodology. Expected to produce lower valuesthan the previous assay method.NEW Reference Range: 13 - 75 U/L Performed By: #### L 100.0100, L500.4050, L501.2450 ####[facility] [address] [place], [address] Lipase measurementOrdered By : Lars Dahl on 09-20-2024 Lipase [Catalytic activity/Vol] 12 U/L Low 13-75 [facility] Comment on above: Please note:LIPASE r evised reference range effective 22. New Lipase methodology. Expected to produce lower values than the previous assay method. NEW Reference Range: 13 - 75 U/L Lymphocytes Auto (Unsp spec) [#/Vol]Ordered By: Lars Dahl on 09-20-2024 Lymphocytes (Bld) [#/Vol] 0.35 10*3/uL Low 0.83-4.51 [facility] Lymphocytes/100 WBC Auto (Un sp spec)Ordered By: Lars Dahl on 09-20-2024 Lymphocytes/100 WBC (Bld) 3.7 % Low 19-41 [facility] M100.678on 09-20-2024 M100.678 Pending SARS-CoV-2 (COVID 19) Negative INFLUENZA A Negative INFLUENZA B Negative RSV PCR Negative Normal [facility] Comment on above: Performed By: #### M 100.678 ####[facility] [address] [place], [address] MCV (mean corpuscular volume ) determinationOrdered By: Lars Dahl on 09-20-2024 MCV (RBC) [Entitic vol] 89.4 fL 81-99 [facility] Mean corpuscular hemoglobin (MCH) determinationOrdered By: Lars Dahl on 09-20-2024 MCH (RBC) [Entitic mass] 29.8 pg 27.0-32.0 [facility] Mean corpuscular hemoglobin concentration (MCHC) determinationOrdered By: Lars Dahl on 09-20-2024 MCHC (RBC) [Mass/Vol] 33.3 g/dL 32-36 [facility] Mean platelet volume determi nationOrdered By: Lars Dahl on 09-20-2024 Platelet mean volume (Bld) [Entitic vol] 12.6 fL High 6.2-12.0 [facility] Microscopic analysis of urin e for red blood cells (RBC)Ordered By: Lars Dahl on 09-20-2024 Microscopic analysis of urine for red blood cells (RBC) 0 SEEN /hpf 0-5 [facility] Urine RBC 0 SEEN /hpf 0-5 [facility] Monocyte percentageOrdered B y: Lars Dahl on 09-20-2024 Monocytes/100 WBC (Bld) 4.5 % 0-10 [facility] Mucus LM Ql (Urine sed)Order ed By: Lars Dahl on 09-20-2024 Mucus Ql (Urine sed) 0 SEEN /hpf [facility] Neutrophil percentageOrdered By: Lars Dahl on 09-20-2024 Neutrophils/100 WBC (Bld) 90.2 % High 47-70 [facility] Nitrite Test strip Ql (U)Ord ered By: Lars Dahl on 09-20-2024 Nitrite Ql (U) Negative Negative [facility] No Panel InformationOrdered By: Lars Dahl on 09-20-2024 22 U/L <32 [facility] Nucleated red blood cell per centageOrdered By: Lars Dahl on 09-20-2024 Nucleated RBC/100 WBC (Bld) [Ratio] 0 % 0-5 [facility] Platelet countOrdered By: Lazaro Dahl on 09-20-2024 Platelets (Bld) [#/Vol] 188 10*3/uL 150-450 [facility] Potassium (Unsp spec) [Mass/ Vol]Ordered By: Lars Dhal on 09-20-2024 Potassium [Moles/Vol] 4.1 mmol/L 3.3-5.1 [facility] Potassium measurement (mass/ volume)Ordered By: Lars Dahl on 09-20-2024 Potassium (Unsp spec) [Mass/Vol] 4.1 mmol/L 3.3-5.1 [facility] Protein Test strip Ql (U)Ord ered By: Lars Dhal on 09-20-2024 Protein Ql (U) 30 mg/dl High Negative [facility] RBC Auto (Bld) [#/Vol]Ordere d By: Lars Dahl on 09-20-2024 RBC (Bld) [#/Vol] 4.63 10*6/uL 4.2-5.4 [facility] Serum creatinine measurement (mass/volume)Ordered By: Lars Dahl on 09-20-2024 Creatinine [Mass/Vol] 0.86 mg/dL 0.70-1.20 [facility] Serum globulin measurementOr dered By: Lars Dahl on 09-20-2024 Globulin (S) [Mass/Vol] 2.9 g/dL 2.2-4.2 [facility] Serum glucose measurement (m ass/volume)Ordered By: Lars Dahl on 09-20-2024 Glucose [Mass/Vol] 153 mg/dL High 70-[address] [facility] Serum or plasma alanine ramírez otransferase (ALT) measurementOrdered By: Lars Dahl on 09-20-2024 ALT [Catalytic activity/Vol] 17 U/L <35 [facility] Serum or plasma albumin zora urement (mass/volume)Ordered By: Lars Dahl on 09-20-2024 Albumin [Mass/Vol] 3.9 g/dL 3.4-4.[address] [facility] Serum or plasma albumin/glob ulin mass ratioOrdered By: Lars Dahl on 09-20-2024 Albumin/Globulin [Mass ratio] 1.3 {ratio} 0.9-2.4 [facility] Serum or plasma alkaline dhiraj sphatase measurementOrdered By: Lars Dahl on 09-20-2024 ALP [Catalytic activity/Vol] 78 U/L 35-104 [facility] Serum or plasma calcium zora urement (mass/volume)Ordered By: Lars Dahl on 09-20-2024 Calcium [Mass/Vol] 9.1 mg/dL 7.6-11.[address] [facility] Serum or plasma urea nitroge n measurement (mass/volume)Ordered By: Lars Dahl on 09-20-2024 Urea nitrogen [Mass/Vol] 28 mg/dL High 4-19 [facility] Sodium levelOrdered By: Jorge Dahl on 09-20-2024 Sodium [Moles/Vol] 138 mmol/L 133-[address] [facility] Squamous epithelial cells de tection in urine sediment by light microscopyOrdered By: Lars Dahl on 09-20-2024 Epithelial cells.squamous LM Ql (Urine sed) 0-5 SEEN /hpf 5-10 [facility] Total proteinOrdered By: [place] Dahl on 09-20-2024 Protein [Mass/Vol] 6.7 g/dL 5.9-8.[address] [facility] Urinalysis, Completeon 09-20 AMORPHOUS 1+ URATE Normal [facility] Comment on above: Order Comment: CLEAN CATCH Performed By: #### L 400.0001 ####[facility] [address] [place], [address] EPI,SQUAMOUS 0-5 SEEN Normal 5-10 [facility] Comment on above: Order Comment: CLEAN CATCH Performed By: #### L 400.0001 ####[facility] [address] [place], [address] RBC 0 SEEN Normal 0-5 [facility] Comment on above: Order Comment: CLEAN CATCH Performed By: #### L 400.0001 ####[facility] [address] [place], [address] WBC 25-50 SEEN Normal 0-5 [facility] Comment on above: Order Comment: CLEAN CATCH Performed By: #### L 400.0001 ####[facility] [address] [place], [address] BACTERIA 0 SEEN Normal None Seen [facility] Comment on above: Order Comment: CLEAN CATCH Performed By: #### L 400.0001 ####[facility] [address] [place], [address] Mucus Ql (Urine sed) 0 SEEN Normal [facility] Comment on above: Order Comment: CLEAN CATCH Performed By: #### L 400.0001 ####[facility] [address] [place], [address] Urine blood detectionOrdered By: Lars Dahl on 09-20-2024 Urine Occult Blood Negative Negative [facility] Urine clarityOrdered By: [place] Dahl on 09-20-2024 Clarity (U) Sl. Cloudy Clear [facility] Urine color determinationOrd ered By: Lars Dahl on 09-20-2024 Color (U) Yellow Yellow [facility] Urine cultureOrdered By: [place] Dahl on 09-20-2024 Bacteria identified Cx Nom (U) Positive Abnormal [facility] Urine glucose detectionOrder ed By: Lars Dahl on 09-20-2024 Glucose Ql (U) Normal mg/dl Normal [facility] Urine leukocyte esterase det ection by dipstickOrdered By: Lars Dahl on 09-20-2024 Leukocyte esterase Test strip Ql (U) 500 /ul High Negative [facility] Urine pHOrdered By: Lars laura on 09-20-2024 pH (U) 6.0 [pH] 5.0 - 8.0 [facility] Urine sediment bacteria coun t by microscopy (number/high power field)Ordered By: Lars Dahl on 09-20-2024 Bacteria LM.HPF (Urine sed) [#/Area] 0 /[HPF] None Seen [facility] Urine specific gravity measu rementOrdered By: Lars Dahl on 09-20-2024 Specific gravity (U) [Rel density] 1.025 1.002-1.030 [facility] Urine urobilinogen measureme ntOrdered By: Lars Dahl on 09-20-2024 Urobilinogen Ql (U) Normal mg/dl Normal [facility] Urobilinogen Ql (U)Ordered B y: Lras Dahl on 09-20-2024 Urine Urobilinogen Normal mg/dl Normal [facility] White blood cell (WBC) count Ordered By: Lars Dahl on 09-20-2024 WBC (Bld) [#/Vol] 9.4 10*3/uL 4.4-11.[address] [facility] White blood cell countOrdere d By: Lars Dahl on 09-20-2024 Urine WBC 25-50 SEEN /hpf 0-5 [facility] White blood cell count 25-50 SEEN /hpf 0-5 [facility] CNPNon 09-10-2024 CNPN Normal [facility] CNPNon 09-06-2024 CNPN Normal [facility] CNPNon 09-04-2024 CNPN Normal [facility] ALBUMIN/CREATININE RATIO, UR INEon 08-20-2024 Albumin DL <= 20 mg/L (U) [Mass/Vol] mg/dL Normal [facility] Comment on above: Order Comment: Speci men Type: URINE SPECIMENOrdering Facility: [facility] Address: [address] [place] [address] Performed By: #### U ACR ####[facility] LABCLIA [id number] [place] [address] [place] Albumin/Creatinine (U) [Mass ratio] Normal [facility] Comment on above: Order Comment: Speci men Type: URINE SPECIMENOrdering Facility: [facility] Address: [address] [place] [address] Result Comment: Not calculatedAdult Male and Female Nephrotic Criteria:<30 mg/g is considered normal to mildly igkwxujlq87-753 mg/g is considered moderately increased>300 mg/g is considered severely increasedKDIGO. (2013). KDIGO 2012 Clinical Practice Guideline for the Evaluation and Management of Chronic Kidney Disease. Official Journal of the International Society of Nephrology, 3(1), 1-150. Performed By: #### U ACR ####[facility] LABIA [id number] [place] [address] [place] Creatinine (U) [Mass/Vol] 24.5 mg/dL Normal 20.0-300.0 [facility] Comment on above: Order Comment: Speci men Type: URINE SPECIMENOrdering Facility: [facility] Address: [address] [place] [address] Performed By: #### U ACR ####[facility] LABIA [id number] [place] [address] [place] Comprehensive metabolic 2000 panelon 08-20-2024 Albumin [Mass/Vol] 4.2 g/dL Normal 3.9-4.9 [facility] Comment on above: Order Comment: Speci men Type: BLOOD SPECIMENOrdering Facility: [facility] Address: [address] [place] [address] Performed By: #### 2 4323-8 ####[facility] [id number] [place] [address] [place] ALP [Catalytic activity/Vol] 83 U/L Normal 34-123 [facility] Comment on above: Order Comment: Speci men Type: BLOOD SPECIMENOrdering Facility: [facility] Address: [address] [place] [address] Performed By: #### 2 4323-8 ####[facility] MILLTOWNCLIA [id number] [place] [address] [place] ALT [Catalytic activity/Vol] 15 U/L Normal 7-38 [facility] Comment on above: Order Comment: Speci men Type: BLOOD SPECIMENOrdering Facility: [facility] Address: [address] [place] [address] Performed By: #### 2 4323-8 ####[facility] MILLTOWNCLIA [id number] [place] [address] [place] Anion gap [Moles/Vol] 9 mmol/L Normal 8-15 [facility] Comment on above: Order Comment: Speci men Type: BLOOD SPECIMENOrdering Facility: [facility] Address: [address] [place] [address] Performed By: #### 2 4323-8 ####[facility] [id number] [place] [address] [place] AST [Catalytic activity/Vol] 18 U/L Normal 13-35 [facility] Comment on above: Order Comment: Speci men Type: BLOOD SPECIMENOrdering Facility: [facility] Address: [address] [place] [address] Performed By: #### 2 4323-8 ####[facility] [id number] [place] [address] [place] Bilirubin [Mass/Vol] 1.0 mg/dL Normal 0.2-1.3 [facility] Comment on above: Order Comment: Speci men Type: BLOOD SPECIMENOrdering Facility: [facility] Address: [address] [place] [address] Performed By: #### 2 4323-8 ####[facility] NASSAUNCLIA [id number] [place] [address] [place] Calcium [Mass/Vol] 9.8 mg/dL Normal 8.5-10.2 [facility] Comment on above: Order Comment: Speci men Type: BLOOD SPECIMENOrdering Facility: [facility] Address: [address] [place] [address] Performed By: #### 2 4323-8 ####[facility] [id number] [place] [address] [place] Chloride [Moles/Vol] 103 mmol/L Normal 98-107 [facility] Comment on above: Order Comment: Speci men Type: BLOOD SPECIMENOrdering Facility: [facility] Address: [address] [place] [address] Performed By: #### 2 4323-8 ####[facility] [id number] [place] [address] [place] CO2 [Moles/Vol] 27 mmol/L Normal 22-30 [facility] Comment on above: Order Comment: Speci men Type: BLOOD SPECIMENOrdering Facility: [facility] Address: [address] [place] [address] Performed By: #### 2 4323-8 ####[facility] [id number] [place] [address] [place] Creatinine [Mass/Vol] 0.71 mg/dL Normal 0.58-0.96 [facility] Comment on above: Order Comment: Speci men Type: BLOOD SPECIMENOrdering Facility: [facility] Address: [address] [place] [address] Performed By: #### 2 4323-8 ####[facility] [id number] [place] [address] [place] Creatinine and Glomerular filtration rate.predicted panel (S/P/Bld) 87 mL/min/1.73m??? Normal >=60 [facility] Comment on above: Order Comment: Speci men Type: BLOOD SPECIMENOrdering Facility: [facility] Address: [address] [id number] Result Comment: Judith mated Glomerular Filtration Rate [...] actual GFR. Performed By: #### 2 4323-8 ####[facility] [id number] [place] [address] [place] Glucose [Mass/Vol] 149 mg/dL High 74-99 [facility] Comment on above: Order Comment: Ruma deluna Type: BLOOD SPECIMENOrdering Facility: [facility] Address: [address] [place] [address] Result Comment: The [place] Diabetes Association (ADA) provides guidance for cutoff [...] Standards of Medical Care in Diabetes 2016, [place] Diabetes Association. Diabetes Care. 2016.39(Suppl 1). Performed By: #### 2 4323-8 ####[facility] [id number] [place] [address] [place] Potassium [Moles/Vol] 4.1 mmol/L Normal 3.7-5.1 [facility] Comment on above: Order Comment: [facility] Type: BLOOD SPECIMENOrdering Facility: [facility] Address: [address] [id number] Performed By: #### 2 4323-8 ####[facility] [id number] [place] [address] [place] Protein [Mass/Vol] 7.1 g/dL Normal 6.3-8.0 [facility] Comment on above: Order Comment: Speci men Type: BLOOD SPECIMENOrdering Facility: [facility] Address: [address] [place] [address] Performed By: #### 2 4323-8 ####[facility] [id number] [place] [address] [place] Sodium [Moles/Vol] 139 mmol/L Normal 136-144 [facility] Comment on above: Order Comment: Speci men Type: BLOOD SPECIMENOrdering Facility: [facility] Address: [address] [place] [address] Performed By: #### 2 4323-8 ####[facility] [id number] [place] [address] [place] Urea nitrogen [Mass/Vol] 22 mg/dL High 7-21 [facility] Comment on above: Order Comment: Speci men Type: BLOOD SPECIMENOrdering Facility: [facility] Address: [address] [place] [address] Performed By: #### 2 4323-8 ####[facility] [id number] [place] [address] [place] HbA1c (Bld)on 08-20-2024 Average glucose Estimated from glycated hemoglobin (Bld) [Mass/Vol] 157 mg/dL Normal [facility] Comment on above: Order Comment: Speci men Type: BLOOD SPECIMENOrdering Facility: [facility] Address: [address] [place] [address] Result Comment: eAG: (Estimated average glucose) is a calculated value from HgbA1c and is patient access representative of the average blood glucose level in the last 2-3 month period. Performed By: #### 5 5454-3 ####[facility] LABCLIA [id number] [place] [address] [place] HbA1c (Bld) [Mass fraction] 7.1 % High 4.3-5.6 [facility] Comment on above: Order Comment: Speci men Type: BLOOD SPECIMENOrdering Facility: [facility] Address: [address] [place] [address] Result Comment: [place] Diabetes Association guidelines indicate that patients with HgbA1c in the range 5.7-6.4% are at increased risk for development of diabetes, and intervention by lifestyle modification may be beneficial. HgbA1c greater or equal to 6.5% is considered diagnostic of diabetes. Performed By: #### 5 5454-3 ####[facility] LABCLIA [id number] [place] [address] [place] LIPID PANEL, NONFASTINGon Cholesterol [Mass/Vol] 197 mg/dL Normal <200 [facility] Comment on above: Order Comment: Speci men Type: BLOOD SPECIMENOrdering Facility: [facility] Address: [address] [place] [address] Result Comment: <200 mg/dL, Desirable 200-239 mg/dL, Borderline high>239 mg/dL, High Performed By: #### L IPNF ####[facility] LABCLIA [id number] [place] [address] [place] HDL CHOLESTEROL, NF 59 mg/dL Normal >39 [facility] Comment on above: Order Comment: Speci men Type: BLOOD SPECIMENOrdering Facility: [facility] Address: [address] [place] [address] Result Comment: 40-5 9 mg/dL, Acceptable>59 mg/dL, High: Negative risk factor for coronary heart disease<40 mg/dL, Low: Positive risk factor for coronary heart disease Performed By: #### L IPNF ####[facility] LABCLIA [id number] [place] [address] [place] LDL CHOLESTEROL, NF 120 mg/dL High <100 [facility] Comment on above: Order Comment: Speci men Type: BLOOD SPECIMENOrdering Facility: [facility] Address: [address] [place] [address] Result Comment: <100 mg/dL, Optimal 100-129 mg/dL, Near optimal/above optimal 130-159 mg/dL, Borderline high 160-189 mg/dL, High>189 mg/dL, Very highSecondary prevention optimal LDL Cholesterol levels are recommended to be < 70 mg/dL Performed By: #### L IPNF ####[facility] LABCLIA [id number] [address] LDL/HDL RATIO, NF 2.03 mg/dL Normal <2.54 [facility] Comment on above: Order Comment: Speci men Type: BLOOD SPECIMENOrdering Facility: [facility] Address: [address] [place] [address] Result Comment: Refe rence:1. National Cholesterol Education Program ATP III Guideline At-A-Glance Quick Desk Reference: National Heart, Lung, and Blood [place]. National Institutes of Health. 2001: NIH Publication No. 01-3305.2. An International Atherosclerosis Society position paper: global recommendations for the management of dyslipidemia: executive summary, Atherosclerosis. 2014: 232(2):410-413. Performed By: #### L IPNF ####[facility] LABIA [id number] [address] [place] NON HDL CHOL, NF 138 mg/dL High <130 [facility] Comment on above: Order Comment: Speci men Type: BLOOD SPECIMENOrdering Facility: [facility] Address: [address] [place] [address] Result Comment: <130 mg/dL, Optimal 130-159 mg/dL, Near optimal/above optimal 160-189 mg/dL, Borderline high 190-219 mg/dL, High>219 mg/dL, Very highSecondary prevention optimal non HDL Cholesterol levels are recommended to be <100 mg/dL Performed By: #### L IPNF ####[facility] LABCLIA [id number] [place] [address] [place] T CHOL/HDL RATIO NF 3.34 mg/dL Normal <5.10 [facility] Comment on above: Order Comment: Speci men Type: BLOOD SPECIMENOrdering Facility: [facility] Address: [address] [place] [address] Performed By: #### L IPNF ####[facility] LABCLIA [id number] [place] [address] [place] TRIGLYCERIDES, NF 92 mg/dL Normal <150 [facility] Comment on above: Order Comment: Speci men Type: BLOOD SPECIMENOrdering Facility: [facility] Address: [address] [place] [address] Result Comment: <150 mg/dL, Normal 150-199 mg/dL, Borderline high 200-499 mg/dL, High>499 mg/dL, Very high Performed By: #### L IPNF ####[facility] LABCLIA [id number] [place] [address] [place] VLDL CHOLESTEROL, NF 18 mg/dL Normal <30 [facility] Comment on above: Order Comment: Speci men Type: BLOOD SPECIMENOrdering Facility: [facility] Address: [address] [place] [address] Performed By: #### L IPNF ####[facility] LABCLIA [id number] [place] [address] [place] CNPTOUTREACHon 08-17-2024 CNPTOUTREACH Normal [facility] CNPNon 08-08-2024 CNPN Normal [facility] CNPNon 08-01-2024 CNPN Normal [facility] 12 Lead EKGon 07-28-2024 12 Lead EKG Normal [facility] Absolute neutrophil countOrd ered By: Amber Martino on 07-28-2024 Neutrophils (Bld) [#/Vol] 5.1 10*3/uL 2.0-7.7 [facility] Basic Metabolic Profile (BMP )on 07-28-2024 BUN/CRE 18.1 RATIO Normal 10-20 [facility] Comment on above: Order Comment: 'TROP ' Serial specimen #1, #2 or #3: 1 Performed By: #### L 100.0100, L500.2500, L501.4020 ####[facility] [address] [place], [address] CA,Total 9.3 mg/dL Normal 8.5-10.1 [facility] Comment on above: Order Comment: 'TROP ' Serial specimen #1, #2 or #3: 1 Performed By: #### L 100.0100, L500.2500, L501.4020 ####[facility] [address] [place], [address] Chloride [Moles/Vol] 103 mmol/L Normal 98-107 [facility] Comment on above: Order Comment: 'TROP ' Serial specimen #1, #2 or #3: 1 Performed By: #### L 100.0100, L500.2500, L501.4020 ####[facility] [address] [place], [address] CO2 [Moles/Vol] 25.0 mmol/L Normal 21.0-32.0 [facility] Comment on above: Order Comment: 'TROP ' Serial specimen #1, #2 or #3: 1 Performed By: #### L 100.0100, L500.2500, L501.4020 ####[facility] [address] [place], [address] Creatinine [Mass/Vol] 1.05 mg/dL High 0.55-1.02 [facility] Comment on above: Order Comment: 'TROP ' Serial specimen #1, #2 or #3: 1 Result Comment: The validity of the calculated GFR GFRAA in patients over70 years has not been determined. Clinical correlation isessential. Performed By: #### L 100.0100, L500.2500, L501.4020 ####[facility] [address] [place], [address] ECRCL 66.56 ml/min Normal [facility] Comment on above: Order Comment: 'TROP ' Serial specimen #1, #2 or #3: 1 Performed By: #### L 100.0100, L500.2500, L501.4020 ####[facility] [address] [place], [address] EST GFR - AA 65 mL/min Normal >60 [facility] Comment on above: Order Comment: 'TROP ' Serial specimen #1, #2 or #3: 1 Result Comment: Afri can Fijian GFR Calc Performed By: #### L 100.0100, L500.2500, L501.4020 ####[facility] [address] [place], [address] GAP 6 Normal 5-15 [facility] Comment on above: Order Comment: 'TROP ' Serial specimen #1, #2 or #3: 1 Performed By: #### L 100.0100, L500.2500, L501.4020 ####[facility] [address] [place], [address] GFR/1.73 sq M.predicted among non-blacks MDRD (S/P/Bld) [Vol rate/Area] 54 mL/min/{1.73_m2} Low >60 [facility] Comment on above: Order Comment: 'TROP ' Serial specimen #1, #2 or #3: 1 Result Comment: Non- GFR Calc Performed By: #### L 100.0100, L500.2500, L501.4020 ####[facility] [address] [place], [address] Glucose [Mass/Vol] 197 mg/dL High 74-[address] [facility] Comment on above: Order Comment: 'TROP ' Serial specimen #1, #2 or #3: 1 Result Comment: Fast ing Glucose result greater than or equal to 126 mg/dLsuggests DIABETES MELLITUS per A.D.A. criteria. Performed By: #### L 100.0100, L500.2500, L501.4020 ####[facility] [address] [place], [address] Potassium [Moles/Vol] 4.6 mmol/L Normal 3.5-5.1 [facility] Comment on above: Order Comment: 'TROP ' Serial specimen #1, #2 or #3: 1 Performed By: #### L 100.0100, L500.2500, L501.4020 ####[facility] [address] [place], [address] Sodium [Moles/Vol] 134 mmol/L Low 136-[address] [facility] Comment on above: Order Comment: 'TROP ' Serial specimen #1, #2 or #3: 1 Performed By: #### L 100.0100, L500.2500, L501.4020 ####[facility] [address] [place], [address] Urea nitrogen [Mass/Vol] 19 mg/dL High 7-18 [facility] Comment on above: Order Comment: 'TROP ' Serial specimen #1, #2 or #3: 1 Performed By: #### L 100.0100, L500.2500, L501.4020 ####[facility] [address] [place], [address] Basophil percentageOrdered B y: Amber Martino on 07-28-2024 Basophils/100 WBC (Bld) 0.7 % 0-1 [facility] Bilirubin Test strip Ql (U)O rdered By: Amber Martino on 07-28-2024 Bilirubin Ql (U) Negative Negative [facility] Blood urea nitrogen (BUN)/cr eatinine ratioOrdered By: Amber Martino on 07-28-2024 Urea nitrogen/Creatinine [Mass ratio] 18.1 mg/mg 10-20 [facility] CBC W/Diff, Automatedon 01-1 1-2025 PLT EST ADEQUATE Normal ADEQ [facility] Comment on above: Performed By: #### L 100.0100, L500.2500, L501.4020 ####[facility] [address] [place], [address] Carbon dioxide measurementOr dered By: Amber Martino on 07-28-2024 CO2 [Moles/Vol] 25.0 mmol/L 21.0-32.0 [facility] Chloride measurementOrdered By: Amber Martino on 07-28-2024 Chloride [Moles/Vol] 103 mmol/L 98-107 [facility] Emergency Department Summary on 07-28-2024 Emergency Department Summary Normal [facility] Eosinophil percentageOrdered By: Amber Martino on 07-28-2024 Eosinophils/100 WBC (Bld) 4.5 % 0-5 [facility] Epithelial cells.squamous LM Ql (Urine sed)Ordered By: Amber Martino on 07-28-2024 Epithelial cells.squamous LM.HPF (Urine sed) [#/Area] 0 /[HPF] 5-10 [facility] Erythrocyte distribution wid th ratioOrdered By: Amber Martino on 07-28-2024 Erythrocyte distribution width (RBC) [Ratio] 12.6 % 11.6-14.6 [facility] Erythrocyte distribution wid th standard deviationOrdered By: Amber Martino on 07-28-2024 Erythrocyte distribution width (RBC) [Entitic vol] 40.6 fL 35.1-43.9 [facility] Estimated glomerular filtrat ion rate (GFR) AmericanOrdered By: Amber Martino on 07-28-2024 Estimated GFR (MDRD) Amer 65 mL/min >60 [facility] Comment on above: GFR Calc Estimation of creatinine kimberly aranceOrdered By: Amber Martino on 07-28-2024 Estimated Creatinine Clearance Calc 66.56 ml/min [facility] Glomerular filtration rate ( GFR) estimationOrdered By: Amber Martino on 07-28-2024 Estimated GFR (MDRD) Non-Af Amer 54 mL/min Low >60 [facility] Comment on above: Non- GFR Calc Glucose Ql (U)Ordered By: Daniel Bensonier on 07-28-2024 Urine Glucose (UA) Normal mg/dl Normal [facility] Glucose measurementOrdered B y: Amber Salena on 07-28-2024 Glucose [Mass/Vol] 197 mg/dL High 74-[address] [facility] Comment on above: Fasting Glucose resu lt greater than or equal to 126 mg/dL suggests DIABETES MELLITUS per A.D.A. criteria. Hematocrit Auto (Bld) [Volum e fraction]Ordered By: Amber Salena on 07-28-2024 Hematocrit (Bld) [Volume fraction] 41.0 % 37-47 [facility] Hemoglobin measurementOrdere d By: Amber Salena on 07-28-2024 Hemoglobin (Bld) [Mass/Vol] 13.6 g/dL 12.0-15.0 [facility] Immature granulocytes/100 WB C Auto (Bld)Ordered By: Ambergm Martino on 07-28-2024 Immature granulocytes/100 WBC (Bld) 0.300 % 0.0-0.9 [facility] Comment on above: IG% - Immature Granu locytes (promyelocytes, myelocytes and metamyelocytes) > 1% indicates that a LEFT SHIFT is Present. Ketones Test strip Ql (U)Ord ered By: Amber Salena on 07-28-2024 Ketones Ql (U) 5 mg/dl High Negative [facility] L501.4020on 07-28-2024 TROPONIN-I HS 12 pg/mL Normal 3.0-54.0 [facility] Comment on above: Order Comment: 'TROP ' Serial specimen #1, #2 or #3: 1 Result Comment: Jeffrey quintana Note: New Test Units and Gender Specific Reference Ranges. For more information see Policy Stat Procedure Dawson High Sensitivity Troponin (TNIH) and attachments. Performed By: #### L 100.0100, L500.2500, L501.4020 ####[facility] [address] [place], [address] Lymphocytes Auto (Unsp spec) [#/Vol]Ordered By: Amber Martino on 07-28-2024 Lymphocytes (Bld) [#/Vol] 1.12 10*3/uL 0.83-4.51 [facility] Lymphocytes/100 WBC Auto (Un sp spec)Ordered By: Amber Martino on 07-28-2024 Lymphocytes/100 WBC (Bld) 15.6 % Low 19-41 [facility] MCV (mean corpuscular volume ) determinationOrdered By: Amber Martino on 07-28-2024 MCV (RBC) [Entitic vol] 88.4 fL 81-99 [facility] Manual differential comment Ferny (Bld) [Interp]Ordered By: Amber Martino on 07-28-2024 Differential Comment SCANNED [facility] Mean corpuscular hemoglobin (MCH) determinationOrdered By: Amber Martino on 07-28-2024 MCH (RBC) [Entitic mass] 29.3 pg 27.0-32.0 [facility] Mean corpuscular hemoglobin concentration (MCHC) determinationOrdered By: Amber Martino on 07-28-2024 MCHC (RBC) [Mass/Vol] 33.2 g/dL 32-36 [facility] Mean platelet volume determi nationOrdered By: Amber Martino on 07-28-2024 Mean Platelet Volume Not Reportable [facility] Microscopic analysis of urin e for red blood cells (RBC)Ordered By: Amber Martino on 07-28-2024 Urine RBC 0 SEEN /hpf 0-5 [facility] Monocyte percentageOrdered B y: Amber Martino on 07-28-2024 Monocytes/100 WBC (Bld) 7.7 % 0-10 [facility] Mucus LM Ql (Urine sed)Order ed By: Amber Martino on 07-28-2024 Mucus Ql (Urine sed) 0 SEEN /hpf [facility] Neutrophil percentageOrdered By: Amber Martino on 07-28-2024 Neutrophils/100 WBC (Bld) 71.2 % High 47-70 [facility] Nitrite Test strip Ql (U)Ord ered By: Amber Martino on 07-28-2024 Nitrite Ql (U) Negative Negative [facility] Nucleated red blood cell per centageOrdered By: Amber Martino on 07-28-2024 Nucleated RBC/100 WBC (Bld) [Ratio] 0 % 0-5 [facility] Platelet countOrdered By: Daniel Martino on 07-28-2024 Platelet Count See comment 150-450 [facility] Comment on above: Please note: For [...] Martino on 07-28-2024 Platelet Estimate ADEQUATE ADEQ [facility] Potassium measurementOrdered By: Amber Martino on 07-28-2024 Potassium [Moles/Vol] 4.6 mmol/L 3.5-5.1 [facility] Protein Test strip Ql (U)Ord ered By: Amber Martino on 07-28-2024 Protein Ql (U) Negative Negative [facility] RBC Auto (Bld) [#/Vol]Ordere d By: Amber Martino on 07-28-2024 RBC (Bld) [#/Vol] 4.64 10*6/uL 4.2-5.4 [facility] Serum anion gap measurementO rdered By: Amber Martino on 07-28-2024 Anion gap [Moles/Vol] 6 mmol/L 5-15 [facility] Serum or plasma calcium zora urement (mass/volume)Ordered By: Amber Martino on 07-28-2024 Calcium [Mass/Vol] 9.3 mg/dL 8.5-10.[address] [facility] Serum or plasma creatinine m easurement (mass/volume)Ordered By: Amber Martino on 07-28-2024 Creatinine [Mass/Vol] 1.05 mg/dL High 0.55-1.02 [facility] Comment on above: The validity of the calculated GFR & GFRAA in patients over 70 years has not been determined. Clinical correlation is essential. Serum or plasma urea nitroge n measurement (mass/volume)Ordered By: Amber Martino on 07-28-2024 Urea nitrogen [Mass/Vol] 19 mg/dL High 7-18 [facility] Sodium levelOrdered By: Amber Martino on 07-28-2024 Sodium [Moles/Vol] 134 mmol/L Low 136-[address] [facility] Troponin IOrdered By: Amber caputo on 07-28-2024 Troponin I High Sensitivity 12 pg/mL 3.0-54.0 [facility] Comment on above: Please Note: New Mariajose t Units and Gender Specific Reference Ranges. For more information see Policy Stat Procedure Dawson High Sensitivity Troponin (TNIH) and attachments. Urinalysis, Completeon 07-28 WBC 0-5 SEEN Normal 0-5 [facility] Comment on above: Order Comment: DERRICK CTOR TO SPECIFY Performed By: #### L 400.0001 ####[facility] [address] [facility] [address] BACTERIA 0 SEEN Normal None Seen [facility] Comment on above: Order Comment: DERRICK CTOR TO SPECIFY Performed By: #### L 400.0001 ####[facility] [address] [facility] [address] EPI,SQUAMOUS 0 SEEN Normal 5-10 [facility] Comment on above: Order Comment: DERRICK CTOR TO SPECIFY Performed By: #### L 400.0001 ####[facility] [address] [place], [address] Mucus Ql (Urine sed) 0 SEEN Normal [facility] Comment on above: Order Comment: DERRICK CTOR TO SPECIFY Performed By: #### L 400.0001 ####[facility] [address] [place], [address] RBC 0 SEEN Normal 0-5 [facility] Comment on above: Order Comment: DERRICK CTOR TO SPECIFY Performed By: #### L 400.0001 ####[facility] [address] [place], [address] Urine blood detectionOrdered By: Amber Martino on 07-28-2024 Urine Occult Blood Negative Negative [facility] Urine clarityOrdered By: Venita Martino on 07-28-2024 Clarity (U) Clear Clear [facility] Urine color determinationOrd ered By: Amber Martino on 07-28-2024 Color (U) Yellow Yellow [facility] Urine leukocyte esterase det ection by dipstickOrdered By: Amber Martino on 07-28-2024 Leukocyte esterase Test strip Ql (U) 100 /ul High Negative [facility] Urine pHOrdered By: Amber magallanes on 07-28-2024 pH (U) 6.5 [pH] 5.0 - 8.0 [facility] Urine sediment bacteria coun t by microscopy (number/high power field)Ordered By: Amber Martino on 07-28-2024 Bacteria LM.HPF (Urine sed) [#/Area] 0 /[HPF] None Seen [facility] Urine specific gravity measu rementOrdered By: Amber Martino on 07-28-2024 Specific gravity (U) [Rel density] 1.010 1.002-1.030 [facility] Urobilinogen Ql (U)Ordered B y: Amber Martino on 07-28-2024 Urine Urobilinogen Normal mg/dl Normal [facility] White blood cell (WBC) count Ordered By: Amber Martino on 07-28-2024 WBC (Bld) [#/Vol] 7.2 10*3/uL 4.4-11.[address] [facility] White blood cell countOrdere d By: Amber Martino on 07-28-2024 Urine WBC 0-5 SEEN /hpf 0-5 [facility] CNPNon 07-19-2024 CNPN Normal [facility] CNPNon 07-16-2024 CNPN Normal [facility] CNOVon 07-03-2024 CNOV Normal [facility] L501.4020on 07-03-2024 TROPONIN-I HS 12 pg/mL Normal 3.0-54.0 [facility] Comment on above: Result Comment: Plegm quintana Note: New Test Units and Gender Specific Reference Ranges. For more information see Policy Stat Procedure Dawson High Sensitivity Troponin (TNIH) and attachments. Performed By: #### L 501.4020 ####[facility] [address] [place], [address] Troponin IOrdered By: Eduardo Paz on 07-03-2024 Troponin I High Sensitivity 12 pg/mL 3.0-54.0 [facility] Comment on above: Please Note: New Mariajose t Units and Gender Specific Reference Ranges. For more information see Policy Stat Procedure Dawson High Sensitivity Troponin (TNIH) and attachments. 12 Lead EKGon 07-02-2024 12 Lead EKG Normal [facility] Absolute neutrophil countOrd ered By: Eduardo Paz on 07-02-2024 Neutrophils (Bld) [#/Vol] 3.2 10*3/uL 2.0-7.7 [facility] Basic Metabolic Profile (BMP )on 07-02-2024 BUN/CRE 22.7 RATIO High 10-20 [facility] Comment on above: Order Comment: 1Y Performed By: #### L 100.0100, L500.2500, L501.5425 ####[facility] [address] [place], [address] CA,Total 9.4 mg/dL Normal 8.5-10.1 [facility] Comment on above: Order Comment: 1Y Performed By: #### L 100.0100, L500.2500, L501.5425 ####[facility] [address] [place], [address] Chloride [Moles/Vol] 103 mmol/L Normal 98-107 [facility] Comment on above: Order Comment: 1Y Performed By: #### L 100.0100, L500.2500, L501.5425 ####[facility] [address] [place], [address] CO2 [Moles/Vol] 28.0 mmol/L Normal 21.0-32.0 [facility] Comment on above: Order Comment: 1Y Performed By: #### L 100.0100, L500.2500, L501.5425 ####[facility] [address] [place], [address] Creatinine [Mass/Vol] 0.84 mg/dL Normal 0.55-1.02 [facility] Comment on above: Order Comment: 1Y Result Comment: The validity of the calculated GFR GFRAA in patients over70 years has not been determined. Clinical correlation isessential. Performed By: #### L 100.0100, L500.2500, L501.5425 ####[facility] [address] [place], [address] ECRCL 82.67 ml/min Normal [facility] Comment on above: Order Comment: 1Y Performed By: #### L 100.0100, L500.2500, L501.5425 ####[facility] [address] [place], [address] EST GFR - AA 84 mL/min Normal >60 [facility] Comment on above: Order Comment: 1Y Result Comment: Afri can Fijian GFR Calc Performed By: #### L 100.0100, L500.2500, L501.5425 ####[facility] [address] [place], [address] GAP 6 Normal 5-15 [facility] Comment on above: Order Comment: 1Y Performed By: #### L 100.0100, L500.2500, L501.5425 ####[facility] [address] [place], [address] GFR/1.73 sq M.predicted among non-blacks MDRD (S/P/Bld) [Vol rate/Area] 70 mL/min/{1.73_m2} Normal >60 [facility] Comment on above: Order Comment: 1Y Result Comment: Non- GFR Calc Performed By: #### L 100.0100, L500.2500, L501.5425 ####[facility] [address] [place], [address] Glucose [Mass/Vol] 195 mg/dL High 74-[address] [facility] Comment on above: Order Comment: 1Y Result Comment: Fast ing Glucose result greater than or equal to 126 mg/dLsuggests DIABETES MELLITUS per A.D.A. criteria. Performed By: #### L 100.0100, L500.2500, L501.5425 ####[facility] [address] [place], [address] Potassium [Moles/Vol] 3.7 mmol/L Normal 3.5-5.1 [facility] Comment on above: Order Comment: 1Y Performed By: #### L 100.0100, L500.2500, L501.5425 ####[facility] [address] [place], [address] Sodium [Moles/Vol] 137 mmol/L Normal 136-[address] [facility] Comment on above: Order Comment: 1Y Performed By: #### L 100.0100, L500.2500, L501.5425 ####[facility] [address] [place], [address] Urea nitrogen [Mass/Vol] 19 mg/dL High 7-18 [facility] Comment on above: Order Comment: 1Y Performed By: #### L 100.0100, L500.2500, L501.5425 ####[facility] [address] [place], [address] Basophil percentageOrdered B y: Eduardo Paz on 07-02-2024 Basophils/100 WBC (Bld) 0.4 % 0-1 [facility] Blood urea nitrogen (BUN)/cr eatinine ratioOrdered By: Eduardo Paz on 07-02-2024 Urea nitrogen/Creatinine [Mass ratio] 22.7 mg/mg High 10-20 [facility] CBC W/Diff, Automatedon 06-17 Absolute Lymph 1.33 X10 3/uL Normal 0.83-4.51 [facility] Comment on above: Performed By: #### L 100.0100, L500.2500, L501.5425 ####[facility] [address] [place], [address] Absolute Neut 3.2 X10 3/uL Normal 2.0-7.7 [facility] Comment on above: Performed By: #### L 100.0100, L500.2500, L501.5425 ####[facility] [address] [place], [address] Basophils/100 WBC (Bld) 0.4 % Normal 0-1 [facility] Comment on above: Performed By: #### L 100.0100, L500.2500, L501.5425 ####[facility] [address] [place], [address] Eosinophils/100 WBC (Bld) 3.3 % Normal 0-5 [facility] Comment on above: Performed By: #### L 100.0100, L500.2500, L501.5425 ####[facility] [address] [place], [address] Erythrocyte distribution width (RBC) [Ratio] 12.5 % Normal 11.6-14.6 [facility] Comment on above: Performed By: #### L 100.0100, L500.2500, L501.5425 ####[facility] [address] [place], [address] Hematocrit (Bld) [Volume fraction] 38.9 % Normal 37-47 [facility] Comment on above: Performed By: #### L 100.0100, L500.2500, L501.5425 ####[facility] [address] [place], [address] Hemoglobin (Bld) [Mass/Vol] 12.7 g/dL Normal 12.0-15.0 [facility] Comment on above: Performed By: #### L 100.0100, L500.2500, L501.5425 ####[facility] [address] [place], [address] IG% 0.200 Normal 0.0-0.9 [facility] Comment on above: Result Comment: IG% - Immature Granulocytes (promyelocytes, myelocytes andmetamyelocytes) > 1% indicates that a LEFT SHIFT is Present. Performed By: #### L 100.0100, L500.2500, L501.5425 ####[facility] [address] [place], [address] Lymphocytes/100 WBC (Bld) 25.5 % Normal 19-41 [facility] Comment on above: Performed By: #### L 100.0100, L500.2500, L501.5425 ####[facility] [address] [place], [address] MCH (RBC) [Entitic mass] 29.1 pg Normal 27.0-32.0 [facility] Comment on above: Performed By: #### L 100.0100, L500.2500, L501.5425 ####[facility] [address] [place], [address] MCHC (RBC) [Mass/Vol] 32.6 g/dL Normal 32-36 [facility] Comment on above: Performed By: #### L 100.0100, L500.2500, L501.5425 ####[facility] [address] [place], [address] MCV (RBC) [Entitic vol] 89.0 fL Normal 81-99 [facility] Comment on above: Performed By: #### L 100.0100, L500.2500, L501.5425 ####[facility] [address] [place], [address] Monocytes/100 WBC (Bld) 9.8 % Normal 0-10 [facility] Comment on above: Performed By: #### L 100.0100, L500.2500, L501.5425 ####[facility] [address] [place], [address] Neutrophils/100 WBC (Bld) 60.8 % Normal 47-70 [facility] Comment on above: Performed By: #### L 100.0100, L500.2500, L501.5425 ####[facility] [address] [place], [address] Nucleated RBC (Bld) [#/Vol] 0 10*3/uL Normal 0-5 [facility] Comment on above: Performed By: #### L 100.0100, L500.2500, L501.5425 ####[facility] [address] [place], [address] Platelet mean volume (Bld) [Entitic vol] 12.2 fL High 6.2-12.0 [facility] Comment on above: Performed By: #### L 100.0100, L500.2500, L501.5425 ####[facility] [address] [place], [address] Platelets (Bld) [#/Vol] 183 10*3/uL Normal 150-450 [facility] Comment on above: Performed By: #### L 100.0100, L500.2500, L501.5425 ####[facility] [address] [place], [address] RBC (Bld) [#/Vol] 4.37 10*6/uL Normal 4.2-5.4 [facility] Comment on above: Performed By: #### L 100.0100, L500.2500, L501.5425 ####[facility] [address] [place], [address] RDW SD 41.1 fl Normal 35.1-43.9 [facility] Comment on above: Performed By: #### L 100.0100, L500.2500, L501.5425 ####[facility] [address] [place], [place], [address] WBC (Bld) [#/Vol] 5.2 10*3/uL Normal 4.4-11.[address] [facility] Comment on above: Performed By: #### L 100.0100, L500.2500, L501.9683 ####[facility] [address] [facility] [facility] [address] [place], [place], [address] Carbon dioxide measurementOr dered By: Eduardo Paz on 07-02-2024 CO2 [Moles/Vol] 28.0 mmol/L 21.0-32.0 [facility] Chest 1 View (Portable)on Chest 1 View (Portable) Normal [facility] Chloride measurementOrdered By: Eduardo Paz on 07-02-2024 Chloride [Moles/Vol] 103 mmol/L 98-107 [facility] Emergency Department Summary on 07-02-2024 Emergency Department Summary Normal [facility] Eosinophil percentageOrdered By: Eduardo Paz on 07-02-2024 Eosinophils/100 WBC (Bld) 3.3 % 0-5 [facility] Erythrocyte distribution wid th ratioOrdered By: Eduardo Paz on 07-02-2024 Erythrocyte distribution width (RBC) [Ratio] 12.5 % 11.6-14.6 [facility] Erythrocyte distribution wid th standard deviationOrdered By: Eduardo Hua on 07-02-2024 Erythrocyte distribution width (RBC) [Entitic vol] 41.1 fL 35.1-43.9 [facility] Estimated glomerular filtrat ion rate (GFR) AmericanOrdered By: Eduardo Paz on 07-02-2024 Estimated GFR (MDRD) Amer 84 mL/min >60 [facility] Comment on above: GFR Calc Estimation of creatinine kimberly aranceOrdered By: Eduardo Paz on 07-02-2024 Estimated Creatinine Clearance Calc 82.67 ml/min [facility] Glomerular filtration rate ( GFR) estimationOrdered By: Eduardo Paz on 07-02-2024 Estimated GFR (MDRD) Non-Af Amer 70 mL/min >60 [facility] Comment on above: Non- GFR Calc Glucose measurementOrdered B y: Eduardo Paz on 07-02-2024 Glucose [Mass/Vol] 195 mg/dL High 74-[address] [facility] Comment on above: Fasting Glucose resu lt greater than or equal to 126 mg/dL suggests DIABETES MELLITUS per A.D.A. criteria. Hematocrit Auto (Bld) [Volum e fraction]Ordered By: Eduardo Paz on 07-02-2024 Hematocrit (Bld) [Volume fraction] 38.9 % 37-47 [facility] Hemoglobin measurementOrdere d By: Eduardo Paz on 07-02-2024 Hemoglobin (Bld) [Mass/Vol] 12.7 g/dL 12.0-15.0 [facility] Immature granulocytes/100 WB C Auto (Bld)Ordered By: Eduardo Paz on 07-02-2024 Immature granulocytes/100 WBC (Bld) 0.200 % 0.0-0.9 [facility] Comment on above: IG% - Immature Granu locytes (promyelocytes, myelocytes and metamyelocytes) > 1% indicates that a LEFT SHIFT is Present. L501.5425on 07-02-2024 TROPONIN-I HS 15 pg/mL Normal 3.0-54.0 [facility] Comment on above: Order Comment: 1Y Result Comment: Plea Note: New Test Units and Gender Specific Reference Ranges. For more information see Policy Stat Procedure Dawson High Sensitivity Troponin (TNIH) and attachments. Performed By: #### L 100.0100, L500.2500, L501.5425 ####[facility] [address] [place], [place], [id number] Lymphocytes Auto (Unsp spec) [#/Vol]Ordered By: Eduardo Paz on 07-02-2024 Lymphocytes (Bld) [#/Vol] 1.33 10*3/uL 0.83-4.51 [facility] Lymphocytes/100 WBC Auto (Un sp spec)Ordered By: Eduardo Paz on 07-02-2024 Lymphocytes/100 WBC (Bld) 25.5 % 19-41 [facility] MCV (mean corpuscular volume ) determinationOrdered By: Eduardo Paz on 07-02-2024 MCV (RBC) [Entitic vol] 89.0 fL 81-99 [facility] Mean corpuscular hemoglobin (MCH) determinationOrdered By: Eduardo Paz on 07-02-2024 MCH (RBC) [Entitic mass] 29.1 pg 27.0-32.0 [facility] Mean corpuscular hemoglobin concentration (MCHC) determinationOrdered By: Eduardo Paz on 07-02-2024 MCHC (RBC) [Mass/Vol] 32.6 g/dL 32-36 [facility] Mean platelet volume determi nationOrdered By: Eduardo Paz on 07-02-2024 Platelet mean volume (Bld) [Entitic vol] 12.2 fL High 6.2-12.0 [facility] Monocyte percentageOrdered B y: Eduardo Paz on 07-02-2024 Monocytes/100 WBC (Bld) 9.8 % 0-10 [facility] Neutrophil percentageOrdered By: Eduardo Paz on 07-02-2024 Neutrophils/100 WBC (Bld) 60.8 % 47-70 [facility] Nucleated red blood cell per centageOrdered By: Eduardo Paz on 07-02-2024 Nucleated RBC/100 WBC (Bld) [Ratio] 0 % 0-5 [facility] Platelet countOrdered By: Krzysztof Paz on 07-02-2024 Platelets (Bld) [#/Vol] 183 10*3/uL 150-450 [facility] Potassium measurementOrdered By: Eduardo Paz on 07-02-2024 Potassium [Moles/Vol] 3.7 mmol/L 3.5-5.1 [facility] RBC Auto (Bld) [#/Vol]Ordere d By: Eduardo Paz on 07-02-2024 RBC (Bld) [#/Vol] 4.37 10*6/uL 4.2-5.4 [facility] Serum anion gap measurementO rdered By: Eduardo Paz on 07-02-2024 Anion gap [Moles/Vol] 6 mmol/L 5-15 [facility] Serum or plasma calcium zora urement (mass/volume)Ordered By: Eduardo Hua on 07-02-2024 Calcium [Mass/Vol] 9.4 mg/dL 8.5-10.[address] [facility] Serum or plasma creatinine m easurement (mass/volume)Ordered By: Eduardo Hua on 07-02-2024 Creatinine [Mass/Vol] 0.84 mg/dL 0.55-1.02 [facility] Comment on above: The validity of the calculated GFR & GFRAA in patients over 70 years has not been determined. Clinical correlation is essential. Serum or plasma urea nitroge n measurement (mass/volume)Ordered By: Eduardo Paz on 07-02-2024 Urea nitrogen [Mass/Vol] 19 mg/dL High 7-18 [facility] Sodium levelOrdered By: Jack Paz on 07-02-2024 Sodium [Moles/Vol] 137 mmol/L 136-[address] [facility] White blood cell (WBC) count Ordered By: Eduardo Paz on 07-02-2024 WBC (Bld) [#/Vol] 5.2 10*3/uL 4.4-11.[address] [facility] CNPNon 06-29-2024 CNPN Normal [facility] Bacteria Ur Culton Bacteria identified Cx Nom (U) ORGANISM ID: 1 <10,000 CFU/ml Normal urogenital lawanda Normal [facility] Comment on above: Performed By: #### 6 30-4 ####[facility] LABCLIA [id number] [place] [address] [place] Urinalysis complete panel (U )on 06-28-2024 Bacteria LM.HPF (Urine sed) [#/Area] Negative Normal Negative [facility] Comment on above: Order Comment: Speci men Type: URINE SPECIMENOrdering Facility: [facility] Address: [address] [place] [address] Performed By: #### 2 4356-8 ####[facility] LABCLIA [id number] [place] [address] [place] Bilirubin Ql (U) Negative Normal Negative [facility] Comment on above: Order Comment: Speci men Type: URINE SPECIMENOrdering Facility: [facility] Address: [address] [place] [address] Performed By: #### 2 4356-8 ####[facility] LABCLIA [id number] [place] [address] [place] Clarity (Unsp spec) Clear Normal Clear [facility] Comment on above: Order Comment: Speci men Type: URINE SPECIMENOrdering Facility: [facility] Address: [address] [place] [address] Performed By: #### 2 4356-8 ####[facility] LABCLIA [id number] [place] [address] [place] Color (U) Yellow Normal Yellow [facility] Comment on above: Order Comment: Speci men Type: URINE SPECIMENOrdering Facility: [facility] Address: [address] [place] [address] Performed By: #### 2 4356-8 ####[facility] LABCLIA [id number] [place] [address] [place] Epithelial cells LM.HPF (Urine sed) [#/Area] None Seen Normal [facility] Comment on above: Order Comment: Speci men Type: URINE SPECIMENOrdering Facility: [facility] Address: [address] [place] [address] Performed By: #### 2 4356-8 ####[facility] LABCLIA [id number] [place] [address] [place] Glucose Test strip (U) [Mass/Vol] Negative Normal Negative [facility] Comment on above: Order Comment: Speci men Type: URINE SPECIMENOrdering Facility: [facility] Address: [address] [place] [address] Performed By: #### 2 4356-8 ####[facility] LABCLIA [id number] [place] [address] [place] Hemoglobin Ql (U) Negative Normal Negative [facility] Comment on above: Order Comment: Speci men Type: URINE SPECIMENOrdering Facility: [facility] Address: [address] [place] [address] Performed By: #### 2 4356-8 ####[facility] LABCLIA [id number] [place] [address] [place] Hyaline casts (Urine sed) [#/Area] 0 /[LPF] Normal 0 /LPF [facility] Comment on above: Order Comment: Speci men Type: URINE SPECIMENOrdering Facility: [facility] Address: [address] [place] [address] Performed By: #### 2 4356-8 ####[facility] LABCLIA [id number] [place] [address] [place] Ketones Ql (U) Negative Normal Negative [facility] Comment on above: Order Comment: Speci men Type: URINE SPECIMENOrdering Facility: [facility] Address: [address] [place] [address] Performed By: #### 2 4356-8 ####[facility] LABCLIA [id number] [place] [address] [place] Leukocyte esterase Test strip Ql (U) Trace Abnormal Negative [facility] Comment on above: Order Comment: Speci men Type: URINE SPECIMENOrdering Facility: [facility] Address: [address] [place] [address] Performed By: #### 2 4356-8 ####[facility] LABCLIA [id number] [place] [address] [place] Nitrite Ql (U) Negative Normal Negative [facility] Comment on above: Order Comment: Speci men Type: URINE SPECIMENOrdering Facility: [facility] Address: [address] [place] [address] Performed By: #### 2 4356-8 ####[facility] LABCLIA [id number] [place] [address] [place] pH (U) 6.0 [pH] Normal <8.5 [facility] Comment on above: Order Comment: Speci men Type: URINE SPECIMENOrdering Facility: [facility] Address: [address] [place] [address] Performed By: #### 2 4356-8 ####[facility] LABIA [id number] [place] [address] [place] Protein (U) [Mass/Vol] Negative Normal Negative [facility] Comment on above: Order Comment: Speci men Type: URINE SPECIMENOrdering Facility: [facility] Address: [address] [place] [address] Performed By: #### 2 4356-8 ####[facility] LABIA [id number] [place] [address] [place] RBC LM.HPF (Urine sed) [#/Area] 0-2 /HPF Normal 0-2 /HPF [facility] Comment on above: Order Comment: Speci men Type: URINE SPECIMENOrdering Facility: [facility] Address: [address] [place] [address] Performed By: #### 2 4356-8 ####[facility] LABIA [id number] [place] [address] [place] Specific gravity (U) [Rel density] 1.013 Normal 1.005-1.030 [facility] Comment on above: Order Comment: Speci men Type: URINE SPECIMENOrdering Facility: [facility] Address: [address] [place] [address] Performed By: #### 2 4356-8 ####[facility] LABIA [id number] [place] [address] [place] Urobilinogen Ql (U) 0.2 EU/dL Normal 0.2-1.0 EU/dL [facility] Comment on above: Order Comment: Speci men Type: URINE SPECIMENOrdering Facility: [facility] Address: [address] [place] [address] Performed By: #### 2 4356-8 ####[facility] LABIA [id number] [place] [address] [place] WBC LM.HPF (Urine sed) [#/Area] 6-10 /HPF Abnormal 0-5 /HPF [facility] Comment on above: Order Comment: Speci men Type: URINE SPECIMENOrdering Facility: [facility] Address: [address] [place] [address] Performed By: #### 2 4356-8 ####[facility] LABIA [id number] [place] [address] [place] CNPNon 06-26-2024 CNPN Normal [facility] CNPTOUTREACHon 06-21-2024 CNPTOUTREACH Normal [facility] 12 Lead EKG performed by BMS on 06-13-2024 12 Lead EKG performed by BMS Normal [facility] Cardiology Visit Reporton Cardiology Visit Report Normal [facility] CNOVon 06-11-2024 CNOV Normal [facility] Urine Cultureon 06-09-2024 URC Culture exhibits no growth. Normal [facility] Comment on above: Performed By: #### M 100.2200 ####[facility] [address] [place], [address] Absolute neutrophil countOrd ered By: Amber Martino on 06-08-2024 Neutrophils (Bld) [#/Vol] 5.4 10*3/uL 2.0-7.7 [facility] Acetone Serumon 06-08-2024 ACETONE SERUM Negative Normal NEG [facility] Comment on above: Performed By: #### L 500.2500, L100.0100, L501.6900 ####[facility] [address] [place], [address] Acetone [Mass/Vol]Ordered By : Amber Martino on 06-08-2024 Acetone Level Negative NEG [facility] Basic Metabolic Profile (BMP )on 06-08-2024 BUN/CRE 19.8 RATIO Normal 10-20 [facility] Comment on above: Performed By: #### L 500.2500, L100.0100, L501.6900 ####[facility] [address] [place], [address] CA,Total 8.8 mg/dL Normal 8.5-10.1 [facility] Comment on above: Performed By: #### L 500.2500, L100.0100, L501.6900 ####[facility] [address] [place], [address] Chloride [Moles/Vol] 102 mmol/L Normal 98-107 [facility] Comment on above: Performed By: #### L 500.2500, L100.0100, L501.6900 ####[facility] [address] [place], [address] CO2 [Moles/Vol] 27.0 mmol/L Normal 21.0-32.0 [facility] Comment on above: Performed By: #### L 500.2500, L100.0100, L501.6900 ####[facility] [address] [place], [address] Creatinine [Mass/Vol] 1.16 mg/dL High 0.55-1.02 [facility] Comment on above: Result Comment: The validity of the calculated GFR GFRAA in patients over70 years has not been determined. Clinical correlation isessential. Performed By: #### L 500.2500, L100.0100, L501.6900 ####[facility] [address] [place], [address] ECRCL 60.88 ml/min Normal [facility] Comment on above: Performed By: #### L 500.2500, L100.0100, L501.6900 ####[facility] [address] [place], [address] EST GFR - AA 58 mL/min Low >60 [facility] Comment on above: Result Comment: Afri can Fijian GFR Calc Performed By: #### L 500.2500, L100.0100, L501.6900 ####[facility] [address] [place], [address] GAP 7 Normal 5-15 [facility] Comment on above: Performed By: #### L 500.2500, L100.0100, L501.6900 ####[facility] [address] [place], [address] GFR/1.73 sq M.predicted among non-blacks MDRD (S/P/Bld) [Vol rate/Area] 48 mL/min/{1.73_m2} Low >60 [facility] Comment on above: Result Comment: Non- GFR Calc Performed By: #### L 500.2500, L100.0100, L501.6900 ####[facility] [address] [place], [address] Glucose [Mass/Vol] 296 mg/dL High 74-[address] [facility] Comment on above: Result Comment: Gluc ose result greater than or equal to 200 mg/dLsuggests DIABETES MELLITUS per A.D.A. criteria. Performed By: #### L 500.2500, L100.0100, L501.6900 ####[facility] [address] [place], [address] Potassium [Moles/Vol] 3.8 mmol/L Normal 3.5-5.1 [facility] Comment on above: Performed By: #### L 500.2500, L100.0100, L501.6900 ####[facility] [address] [place], [address] Sodium [Moles/Vol] 136 mmol/L Normal 136-[address] [facility] Comment on above: Performed By: #### L 500.2500, L100.0100, L501.6900 ####[facility] [address] [place], [address] Urea nitrogen [Mass/Vol] 23 mg/dL High 7-18 [facility] Comment on above: Performed By: #### L 500.2500, L100.0100, L501.6900 ####[facility] [address] [place], [address] Basophil percentageOrdered B y: Amber Salena on 06-08-2024 Basophils/100 WBC (Bld) 0.6 % 0-1 [facility] Bedside Glucoseon 06-08-2024 FINGERSTICK GLU 274 mg/dL High 74-106 [facility] Comment on above: Result Comment: MERCEDES GEMENT OF PATIENT CARE PER NURSING PROTOCOL Performed By: #### L 501.080 ####[facility] [address] [place], [address] FINGERSTICK GLU 266 mg/dL High 74-106 [facility] Comment on above: Result Comment: MERCEDES GEMENT OF PATIENT CARE PER NURSING PROTOCOL Performed By: #### L 501.080 ####[facility] [address] [place], [address] FINGERSTICK GLU 291 mg/dL High 74-106 [facility] Comment on above: Result Comment: MERCEDES GEMENT OF PATIENT CARE PER NURSING PROTOCOL Performed By: #### L 501.080 ####[facility] [address] [place], [address] Bilirubin Test strip Ql (U)O rdered By: Amber Martino on 06-08-2024 Bilirubin Ql (U) Negative Negative [facility] Blood urea nitrogen (BUN)/cr eatinine ratioOrdered By: Amber Martino on 06-08-2024 Urea nitrogen/Creatinine [Mass ratio] 19.8 mg/mg 05-06 [facility] CBC W/Diff, Automatedon 05-19 Absolute Lymph 1.02 X10 3/uL Normal 0.83-4.51 [facility] Comment on above: Performed By: #### L 500.2500, L100.0100, L501.6900 ####[facility] [address] [place], [address] Absolute Neut 5.4 X10 3/uL Normal 2.0-7.7 [facility] Comment on above: Performed By: #### L 500.2500, L100.0100, L501.6900 ####[facility] [address] [place], [address] Basophils/100 WBC (Bld) 0.6 % Normal 0-1 [facility] Comment on above: Performed By: #### L 500.2500, L100.0100, L501.6900 ####[facility] [address] [place], [address] Eosinophils/100 WBC (Bld) 3.5 % Normal 0-5 [facility] Comment on above: Performed By: #### L 500.2500, L100.0100, L501.6900 ####[facility] [address] [place], [address] Erythrocyte distribution width (RBC) [Ratio] 12.9 % Normal 11.6-14.6 [facility] Comment on above: Performed By: #### L 500.2500, L100.0100, L501.6900 ####[facility] [address] [place], [address] Hematocrit (Bld) [Volume fraction] 38.8 % Normal 37-47 [facility] Comment on above: Performed By: #### L 500.2500, L100.0100, L501.6900 ####[facility] [address] [place], [address] Hemoglobin (Bld) [Mass/Vol] 12.8 g/dL Normal 12.0-15.0 [facility] Comment on above: Performed By: #### L 500.2500, L100.0100, L501.6900 ####[facility] [address] [place], [address] IG% 0.000 Normal 0.0-0.9 [facility] Comment on above: Result Comment: IG% - Immature Granulocytes (promyelocytes, myelocytes andmetamyelocytes) > 1% indicates that a LEFT SHIFT is Present. Performed By: #### L 500.2500, L100.0100, L501.6900 ####[facility] [address] [place], [address] Lymphocytes/100 WBC (Bld) 14.2 % Low 19-41 [facility] Comment on above: Performed By: #### L 500.2500, L100.0100, L501.6900 ####[facility] [address] [place], [address] MCH (RBC) [Entitic mass] 29.2 pg Normal 27.0-32.0 [facility] Comment on above: Performed By: #### L 500.2500, L100.0100, L501.6900 ####[facility] [address] [place], [address] MCHC (RBC) [Mass/Vol] 33.0 g/dL Normal 32-36 [facility] Comment on above: Performed By: #### L 500.2500, L100.0100, L501.6900 ####[facility] [address] [place], [address] MCV (RBC) [Entitic vol] 88.4 fL Normal 81-99 [facility] Comment on above: Performed By: #### L 500.2500, L100.0100, L501.6900 ####[facility] [address] [place], [address] Monocytes/100 WBC (Bld) 7.5 % Normal 0-10 [facility] Comment on above: Performed By: #### L 500.2500, L100.0100, L501.6900 ####[facility] [address] [place], [address] Neutrophils/100 WBC (Bld) 74.2 % High 47-70 [facility] Comment on above: Performed By: #### L 500.2500, L100.0100, L501.6900 ####[facility] [address] [place], [address] Nucleated RBC (Bld) [#/Vol] 0 10*3/uL Normal 0-5 [facility] Comment on above: Performed By: #### L 500.2500, L100.0100, L501.6900 ####[facility] [address] [place], [address] Platelet mean volume (Bld) [Entitic vol] 12.7 fL High 6.2-12.0 [facility] Comment on above: Performed By: #### L 500.2500, L100.0100, L501.6900 ####[facility] [address] [place], [address] Platelets (Bld) [#/Vol] 162 10*3/uL Normal 150-450 [facility] Comment on above: Performed By: #### L 500.2500, L100.0100, L501.6900 ####[facility] [address] [place], [address] RBC (Bld) [#/Vol] 4.39 10*6/uL Normal 4.2-5.4 [facility] Comment on above: Performed By: #### L 500.2500, L100.0100, L501.6900 ####[facility] [address] [place], [address] RDW SD 42.1 fl Normal 35.1-43.9 [facility] Comment on above: Performed By: #### L 500.2500, L100.0100, L501.6900 ####[facility] [address] [place], [address] WBC (Bld) [#/Vol] 7.2 10*3/uL Normal 4.4-11.[address] [facility] Comment on above: Performed By: #### L 500.2500, L100.0100, L501.6900 ####[facility] [address] [place], [address] Carbon dioxide measurementOr dered By: Amber Martino on 06-08-2024 CO2 [Moles/Vol] 27.0 mmol/L 21.0-32.0 [facility] Chloride measurementOrdered By: Amber Martino on 06-08-2024 Chloride [Moles/Vol] 102 mmol/L 98-107 [facility] Emergency Department Summary on 06-08-2024 Emergency Department Summary Normal [facility] Eosinophil percentageOrdered By: Amber Martino on 06-08-2024 Eosinophils/100 WBC (Bld) 3.5 % 0-5 [facility] Epithelial cells.squamous LM Ql (Urine sed)Ordered By: Amber Martino on 06-08-2024 Epithelial cells.squamous LM.HPF (Urine sed) [#/Area] 0 /[HPF] 5-10 [facility] Erythrocyte distribution wid th ratioOrdered By: Amber Martino on 06-08-2024 Erythrocyte distribution width (RBC) [Ratio] 12.9 % 11.6-14.6 [facility] Erythrocyte distribution wid th standard deviationOrdered By: Amber Martino on 06-08-2024 Erythrocyte distribution width (RBC) [Entitic vol] 42.1 fL 35.1-43.9 [facility] Estimated glomerular filtrat ion rate (GFR) AmericanOrdered By: Amber Martino on 06-08-2024 Estimated GFR (MDRD) Amer 58 mL/min Low >60 [facility] Comment on above: GFR Calc Estimation of creatinine kimberly aranceOrdered By: Amber Martino on 06-08-2024 Estimated Creatinine Clearance Calc 60.88 ml/min [facility] Glomerular filtration rate ( GFR) estimationOrdered By: Amber Martino on 06-08-2024 Estimated GFR (MDRD) Non-Af Amer 48 mL/min Low >60 [facility] Comment on above: Non- GFR Calc Glucose Ql (U)Ordered By: Daniel Martino on 06-08-2024 Urine Glucose (UA) Normal mg/dl Normal [facility] Glucose measurementOrdered B y: Amber Martino on 06-08-2024 Glucose [Mass/Vol] 296 mg/dL [facility] 74-[address] [facility] Comment on above: Glucose result great er than or equal to 200 mg/dLsuggests DIABETES MELLITUS per A.D.A. criteria. Glucose measurement at [facility] deOrdered By: Reyna Monzon on 06-08-2024 Bedside Glucose (Misc Panel) 274 mg/dL [facility] 74-106 [facility] Comment on above: MANAGEMENT OF PATIEN T CARE PER NURSING PROTOCOL Hematocrit Auto (Bld) [Volum e fraction]Ordered By: Amber Martino on 06-08-2024 Hematocrit (Bld) [Volume fraction] 38.8 % 37-47 [facility] Hemoglobin measurementOrdere d By: Amber Martino on 06-08-2024 Hemoglobin (Bld) [Mass/Vol] 12.8 g/dL 12.0-15.0 [facility] Immature granulocytes/100 WB C Auto (Bld)Ordered By: Amber Martino on 06-08-2024 Immature granulocytes/100 WBC (Bld) 0.000 % 0.0-0.9 [facility] Comment on above: IG% - Immature Granu locytes (promyelocytes, myelocytes and metamyelocytes) > 1% indicates that a LEFT SHIFT is Present. Ketones Test strip Ql (U)Ord ered By: Amber Martino on 06-08-2024 Ketones Ql (U) Negative Negative [facility] Lymphocytes Auto (Unsp spec) [#/Vol]Ordered By: Amber Martino on 06-08-2024 Lymphocytes (Bld) [#/Vol] 1.02 10*3/uL 0.83-4.51 [facility] Lymphocytes/100 WBC Auto (Un sp spec)Ordered By: Amber Martino on 06-08-2024 Lymphocytes/100 WBC (Bld) 14.2 % Low 19-41 [facility] MCV (mean corpuscular volume ) determinationOrdered By: Amber Martino on 06-08-2024 MCV (RBC) [Entitic vol] 88.4 fL 81-99 [facility] Mean corpuscular hemoglobin (MCH) determinationOrdered By: Amber Martino on 06-08-2024 MCH (RBC) [Entitic mass] 29.2 pg 27.0-32.0 [facility] Mean corpuscular hemoglobin concentration (MCHC) determinationOrdered By: Amber Martino on 06-08-2024 MCHC (RBC) [Mass/Vol] 33.0 g/dL 32-36 [facility] Mean platelet volume determi nationOrdered By: Amber Martino on 06-08-2024 Platelet mean volume (Bld) [Entitic vol] 12.7 fL High 6.2-12.0 [facility] Microscopic analysis of urin e for red blood cells (RBC)Ordered By: Amber Matrino on 06-08-2024 Urine RBC 0-5 SEEN /hpf 0-5 [facility] Monocyte percentageOrdered B y: Amber Martino on 06-08-2024 Monocytes/100 WBC (Bld) 7.5 % 0-10 [facility] Mucus LM Ql (Urine sed)Order ed By: Amber Martino on 06-08-2024 Mucus Ql (Urine sed) 0 SEEN /hpf [facility] Neutrophil percentageOrdered By: Amber Martino on 06-08-2024 Neutrophils/100 WBC (Bld) 74.2 % High 47-70 [facility] Nitrite Test strip Ql (U)Ord ered By: Amber Martino on 06-08-2024 Nitrite Ql (U) Negative Negative [facility] Nucleated red blood cell per centageOrdered By: Amber Martino on 06-08-2024 Nucleated RBC/100 WBC (Bld) [Ratio] 0 % 0-5 [facility] Platelet countOrdered By: Daniel Martino on 06-08-2024 Platelets (Bld) [#/Vol] 162 10*3/uL 150-450 [facility] Potassium measurementOrdered By: Amber Martino on 06-08-2024 Potassium [Moles/Vol] 3.8 mmol/L 3.5-5.1 [facility] Protein Test strip Ql (U)Ord ered By: Amber Martino on 06-08-2024 Protein Ql (U) Negative Negative [facility] RBC Auto (Bld) [#/Vol]Ordere d By: Amber Martino on 06-08-2024 RBC (Bld) [#/Vol] 4.39 10*6/uL 4.2-5.4 [facility] Serum anion gap measurementO rdered By: Amber Martino on 06-08-2024 Anion gap [Moles/Vol] 7 mmol/L 5-15 [facility] Serum or plasma calcium zora urement (mass/volume)Ordered By: Amber Martino on 06-08-2024 Calcium [Mass/Vol] 8.8 mg/dL 8.5-10.[address] [facility] Serum or plasma creatinine m easurement (mass/volume)Ordered By: Amber Martino on 06-08-2024 Creatinine [Mass/Vol] 1.16 mg/dL High 0.55-1.02 [facility] Comment on above: The validity of the calculated GFR & GFRAA in patients over 70 years has not been determined. Clinical correlation is essential. Serum or plasma urea nitroge n measurement (mass/volume)Ordered By: Amber Martino on 06-08-2024 Urea nitrogen [Mass/Vol] 23 mg/dL High 7-18 [facility] Sodium levelOrdered By: Amber Martino on 06-08-2024 Sodium [Moles/Vol] 136 mmol/L 136-[address] [facility] Urinalysis, Completeon 06-08 BACTERIA 1+ /hpf Normal None Seen [facility] Comment on above: Order Comment: CLEAN CATCH Performed By: #### L 400.0001 ####[facility] [address] [place], [address] RBC 0-5 SEEN Normal 0-5 [facility] Comment on above: Order Comment: CLEAN CATCH Performed By: #### L 400.0001 ####[facility] [address] [place], [address] WBC 5-10 SEEN Normal 0-5 [facility] Comment on above: Order Comment: CLEAN CATCH Performed By: #### L 400.0001 ####[facility] [address] [place], [address] EPI,SQUAMOUS 0 SEEN Normal 5-10 [facility] Comment on above: Order Comment: CLEAN CATCH Performed By: #### L 400.0001 ####[facility] [address] [place], [address] Mucus Ql (Urine sed) 0 SEEN Normal [facility] Comment on above: Order Comment: CLEAN CATCH Performed By: #### L 400.0001 ####[facility] [address] [place], [address] Urine blood detectionOrdered By: Amber Martino on 06-08-2024 Urine Occult Blood 10 /ul High Negative [facility] Urine clarityOrdered By: Venita Martino on 06-08-2024 Clarity (U) Sl. Cloudy Clear [facility] Urine color determinationOrd ered By: Amber Martino on 06-08-2024 Color (U) Straw Yellow [facility] Urine cultureOrdered By: Venita Martino on 06-08-2024 Bacteria identified Cx Nom (U) Culture exhibits no growth. [facility] Bacteria identified Cx Nom (U) Culture exhibits no growth. [facility] Urine leukocyte esterase det ection by dipstickOrdered By: Amber Martino on 06-08-2024 Leukocyte esterase Test strip Ql (U) 500 /ul High Negative [facility] Urine pHOrdered By: Amber magallanes on 06-08-2024 pH (U) 6.0 [pH] 5.0 - 8.0 [facility] Urine sediment bacteria coun t by microscopy (number/high power field)Ordered By: Amber Martino on 06-08-2024 Bacteria LM.HPF (Urine sed) [#/Area] 1 /[HPF] None Seen [facility] Urine specific gravity measu rementOrdered By: Amber Martino on 06-08-2024 Specific gravity (U) [Rel density] 1.010 1.002-1.030 [facility] Urobilinogen Ql (U)Ordered B y: Amber Martino on 06-08-2024 Urine Urobilinogen Normal mg/dl Normal [facility] White blood cell (WBC) count Ordered By: Amber Martino on 06-08-2024 WBC (Bld) [#/Vol] 7.2 10*3/uL 4.4-11.[address] [facility] White blood cell countOrdere d By: Amber Martino on 06-08-2024 Urine WBC 5-10 SEEN /hpf 0-5 [facility] Bedside Glucoseon 06-07-2024 FINGERSTICK GLU 217 mg/dL High 74-106 [facility] Comment on above: Result Comment: MERCEDES SUBRAMANIAN OF PATIENT CARE PER NURSING PROTOCOL Performed By: #### L 501.080 ####[facility] [address] [place], [address] Echo Complete W/ Contraston 06-07-2024 Echo Complete W/ Contrast Normal [facility] Glucose measurement at [facility] deOrdered By: Areli Estevez on 06-07-2024 Bedside Glucose (Misc Panel) 217 mg/dL High 74-106 [facility] Comment on above: MANAGEMENT OF PATIEN T CARE PER NURSING PROTOCOL Stress Reporton 06-07-2024 Stress Report Normal [facility] Stress Report Normal [facility] CNPTOUTREACHon 06-06-2024 CNPTOUTREACH Normal [facility] CNPNon 05-31-2024 CNPN Normal [facility] Absolute neutrophil countOrd ered By: Lars Dahl on 05-27-2024 Neutrophils (Bld) [#/Vol] 3.8 10*3/uL 2.0-7.7 [facility] BNP (brain natriuretic pepti de measurement)Ordered By: Lars Dahl on 05-27-2024 Natriuretic peptide B (Bld) [Mass/Vol] 97.6 pg/mL 0-100 [facility] BNP,B-Type NATRIURETIC PEPTI Vargas 05-27-2024 Natriuretic peptide B (Bld) [Mass/Vol] 97.6 pg/mL Normal 0-100 [facility] Comment on above: Performed By: #### L 100.0100, L503.6620, L500.2500, L501.5425, L501.9520 ####[facility] [address] [place], [address] Basic Metabolic Profile (BMP )on 05-27-2024 BUN/CRE 21.6 RATIO High 05-06 [facility] Comment on above: Order Comment: 1Y Performed By: #### L 100.0100, L503.6620, L500.2500, L501.5425, L501.9520 ####[facility] [address] [place], [address] CA,Total 8.7 mg/dL Normal 8.5-10.1 [facility] Comment on above: Order Comment: 1Y Performed By: #### L 100.0100, L503.6620, L500.2500, L501.5425, L501.9520 ####[facility] [address] [place], [address] Chloride [Moles/Vol] 108 mmol/L High 98-107 [facility] Comment on above: Order Comment: 1Y Performed By: #### L 100.0100, L503.6620, L500.2500, L501.5425, L501.9520 ####[facility] [address] [place], [address] CO2 [Moles/Vol] 27.0 mmol/L Normal 21.0-32.0 [facility] Comment on above: Order Comment: 1Y Performed By: #### L 100.0100, L503.6620, L500.2500, L501.5425, L501.9520 ####[facility] [address] [place], [address] Creatinine [Mass/Vol] 1.02 mg/dL Normal 0.55-1.02 [facility] Comment on above: Order Comment: 1Y Result Comment: The validity of the calculated GFR GFRAA in patients over70 years has not been determined. Clinical correlation isessential. Performed By: #### L 100.0100, L503.6620, L500.2500, L501.5425, L501.9520 ####[facility] [address] [place], [address] EST GFR - AA 67 mL/min Normal >60 [facility] Comment on above: Order Comment: 1Y Result Comment: Afri can Fijian GFR Calc Performed By: #### L 100.0100, L503.6620, L500.2500, L501.5425, L501.9520 ####[facility] [address] [place], [address] GAP 4 Low 5-15 [facility] Comment on above: Order Comment: 1Y Performed By: #### L 100.0100, L503.6620, L500.2500, L501.5425, L501.9520 ####[facility] [address] [place], [address] GFR/1.73 sq M.predicted among non-blacks MDRD (S/P/Bld) [Vol rate/Area] 56 mL/min/{1.73_m2} Low >60 [facility] Comment on above: Order Comment: 1Y Result Comment: Non- GFR Calc Performed By: #### L 100.0100, L503.6620, L500.2500, L501.5425, L501.9520 ####[facility] [address] [place], [address] Glucose [Mass/Vol] 152 mg/dL High 74-[address] [facility] Comment on above: Order Comment: 1Y Result Comment: Fast ing Glucose result greater than or equal to 126 mg/dLsuggests DIABETES MELLITUS per A.D.A. criteria. Performed By: #### L 100.0100, L503.6620, L500.2500, L501.5425, L501.9520 ####[facility] [address] [place], [address] Potassium [Moles/Vol] 3.8 mmol/L Normal 3.5-5.1 [facility] Comment on above: Order Comment: 1Y Performed By: #### L 100.0100, L503.6620, L500.2500, L501.5425, L501.9520 ####[facility] [address] [place], [address] Sodium [Moles/Vol] 139 mmol/L Normal 136-[address] [facility] Comment on above: Order Comment: 1Y Performed By: #### L 100.0100, L503.6620, L500.2500, L501.5425, L501.9520 ####[facility] [address] [place], [address] Urea nitrogen [Mass/Vol] 22 mg/dL High 7-18 [facility] Comment on above: Order Comment: 1Y Performed By: #### L 100.0100, L503.6620, L500.2500, L501.5425, L501.9520 ####[facility] [address] [place], [address] Basophil percentageOrdered B y: Lars Dahl on 05-27-2024 Basophils/100 WBC (Bld) 0.5 % 0-1 [facility] Blood urea nitrogen (BUN)/cr eatinine ratioOrdered By: Lars Dahl on 05-27-2024 Urea nitrogen/Creatinine [Mass ratio] 21.6 mg/mg High 10- [facility] CBC W/Diff, Automatedon 05-18-2023 Absolute Lymph 1.24 X10 3/uL Normal 0.83-4.51 [facility] Comment on above: Performed By: #### L 100.0100, L503.6620, L500.2500, L501.5425, L501.9520 ####[facility] [address] [place], [address] Absolute Neut 3.8 X10 3/uL Normal 2.0-7.7 [facility] Comment on above: Performed By: #### L 100.0100, L503.6620, L500.2500, L501.5425, L501.9520 ####[facility] [address] [place], [address] Basophils/100 WBC (Bld) 0.5 % Normal 0-1 [facility] Comment on above: Performed By: #### L 100.0100, L503.6620, L500.2500, L501.5425, L501.9520 ####[facility] [address] [place], [address] Eosinophils/100 WBC (Bld) 5.5 % High 0-5 [facility] Comment on above: Performed By: #### L 100.0100, L503.6620, L500.2500, L501.5425, L501.9520 ####[facility] [address] [place], [address] Erythrocyte distribution width (RBC) [Ratio] 12.9 % Normal 11.6-14.6 [facility] Comment on above: Performed By: #### L 100.0100, L503.6620, L500.2500, L501.5425, L501.9520 ####[facility] [address] [place], [address] Hematocrit (Bld) [Volume fraction] 37.2 % Normal 37-47 [facility] Comment on above: Performed By: #### L 100.0100, L503.6620, L500.2500, L501.5425, L501.9520 ####[facility] [address] [place], [address] Hemoglobin (Bld) [Mass/Vol] 12.2 g/dL Normal 12.0-15.0 [facility] Comment on above: Performed By: #### L 100.0100, L503.6620, L500.2500, L501.5425, L501.9520 ####[facility] [address] [place], [address] IG% 0.200 Normal 0.0-0.9 [facility] Comment on above: Result Comment: IG% - Immature Granulocytes (promyelocytes, myelocytes andmetamyelocytes) > 1% indicates that a LEFT SHIFT is Present. Performed By: #### L 100.0100, L503.6620, L500.2500, L501.5425, L501.9520 ####[facility] [address] [place], [address] Lymphocytes/100 WBC (Bld) 21.2 % Normal 19-41 [facility] Comment on above: Performed By: #### L 100.0100, L503.6620, L500.2500, L501.5425, L501.9520 ####[facility] [address] [place], [address] MCH (RBC) [Entitic mass] 29.0 pg Normal 27.0-32.0 [facility] Comment on above: Performed By: #### L 100.0100, L503.6620, L500.2500, L501.5425, L501.9520 ####[facility] [address] [place], [address] MCHC (RBC) [Mass/Vol] 32.8 g/dL Normal 32-36 [facility] Comment on above: Performed By: #### L 100.0100, L503.6620, L500.2500, L501.5425, L501.9520 ####[facility] [address] [place], [address] MCV (RBC) [Entitic vol] 88.4 fL Normal 81-99 [facility] Comment on above: Performed By: #### L 100.0100, L503.6620, L500.2500, L501.5425, L501.9520 ####[facility] [address] [place], [address] Monocytes/100 WBC (Bld) 8.2 % Normal 0-10 [facility] Comment on above: Performed By: #### L 100.0100, L503.6620, L500.2500, L501.5425, L501.9520 ####[facility] [address] [place], [address] Neutrophils/100 WBC (Bld) 64.4 % Normal 47-70 [facility] Comment on above: Performed By: #### L 100.0100, L503.6620, L500.2500, L501.5425, L501.9520 ####[facility] [address] [place], [address] Nucleated RBC (Bld) [#/Vol] 0 10*3/uL Normal 0-5 [facility] Comment on above: Performed By: #### L 100.0100, L503.6620, L500.2500, L501.5425, L501.9520 ####[facility] [address] [place], [address] Platelet mean volume (Bld) [Entitic vol] 12.6 fL High 6.2-12.0 [facility] Comment on above: Performed By: #### L 100.0100, L503.6620, L500.2500, L501.5425, L501.9520 ####[facility] [address] [place], [address] Platelets (Bld) [#/Vol] 185 10*3/uL Normal 150-450 [facility] Comment on above: Performed By: #### L 100.0100, L503.6620, L500.2500, L501.5425, L501.9520 ####[facility] [address] [place], [address] RBC (Bld) [#/Vol] 4.21 10*6/uL Normal 4.2-5.4 [facility] Comment on above: Performed By: #### L 100.0100, L503.6620, L500.2500, L501.5425, L501.9520 ####[facility] [address] [place], [address] RDW SD 41.8 fl Normal 35.1-43.9 [facility] Comment on above: Performed By: #### L 100.0100, L503.6620, L500.2500, L501.5425, L501.9520 ####[facility] [address] [place], [address] WBC (Bld) [#/Vol] 5.8 10*3/uL Normal 4.4-11.[address] [facility] Comment on above: Performed By: #### L 100.0100, L503.6620, L500.2500, L501.5425, L501.9520 ####[facility] [address] [place], [address] Carbon dioxide measurementOr dered By: Lars Dahl on 05-27-2024 CO2 [Moles/Vol] 27.0 mmol/L 21.0-32.0 [facility] Chest PA and Lateralon 05-27 Chest PA and Lateral Normal [facility] Chloride measurementOrdered By: Lars Dahl on 05-27-2024 Chloride [Moles/Vol] 108 mmol/L High 98-107 [facility] Emergency Department Summary on 05-27-2024 Emergency Department Summary Normal [facility] Eosinophil percentageOrdered By: Lars Dahl on 05-27-2024 Eosinophils/100 WBC (Bld) 5.5 % High 0-5 [facility] Erythrocyte distribution wid th ratioOrdered By: Lars Dahl on 05-27-2024 Erythrocyte distribution width (RBC) [Ratio] 12.9 % 11.6-14.6 [facility] Erythrocyte distribution wid th standard deviationOrdered By: Lars Dahl on 05-27-2024 Erythrocyte distribution width (RBC) [Entitic vol] 41.8 fL 35.1-43.9 [facility] Estimated glomerular filtrat ion rate (GFR) AmericanOrdered By: Lars Dahl on 05-27-2024 Estimated GFR (MDRD) Amer 67 mL/min >60 [facility] Comment on above: GFR Calc Glomerular filtration rate ( GFR) estimationOrdered By: Lars Dahl on 05-27-2024 Estimated GFR (MDRD) Non-Af Amer 56 mL/min Low >60 [facility] Comment on above: Non- GFR Calc Glucose measurementOrdered B y: Lars Dahl on 05-27-2024 Glucose [Mass/Vol] 152 mg/dL High 74-[address] [facility] Comment on above: Fasting Glucose resu lt greater than or equal to 126 mg/dL suggests DIABETES MELLITUS per A.D.A. criteria. Hematocrit Auto (Bld) [Volum e fraction]Ordered By: Lars Dahl on 05-27-2024 Hematocrit (Bld) [Volume fraction] 37.2 % 37-47 [facility] Hemoglobin measurementOrdere d By: Lars Dahl on 05-27-2024 Hemoglobin (Bld) [Mass/Vol] 12.2 g/dL 12.0-15.0 [facility] Immature granulocytes/100 WB C Auto (Bld)Ordered By: Lars Dahl on 05-27-2024 Immature granulocytes/100 WBC (Bld) 0.200 % 0.0-0.9 [facility] Comment on above: IG% - Immature Granu locytes (promyelocytes, myelocytes and metamyelocytes) > 1% indicates that a LEFT SHIFT is Present. L501.4020on 05-27-2024 TROPONIN-I HS 10 pg/mL Normal 3.0-54.0 [facility] Comment on above: Result Comment: Plea se Note: New Test Units and Gender Specific Reference Ranges. For more information see Policy Stat Procedure Dawson High Sensitivity Troponin (TNIH) and attachments. Performed By: #### L 501.4020 ####[facility] [address] [place], [place], [address] L501.5425on 05-27-2024 TROPONIN-I HS 9 pg/mL Normal 3.0-54.0 [facility] Comment on above: Order Comment: 1Y Result Comment: Plea se Note: New Test Units and Gender Specific Reference Ranges. For more information see Policy Stat Procedure Dawson High Sensitivity Troponin (TNIH) and attachments. Performed By: #### L 100.0100, L503.6620, L500.2500, L501.5425, L501.9520 ####[facility] [address] [place], [place], [address] Lymphocytes Auto (Unsp spec) [#/Vol]Ordered By: Lars Dahl on 05-27-2024 Lymphocytes (Bld) [#/Vol] 1.24 10*3/uL 0.83-4.51 [facility] Lymphocytes/100 WBC Auto (Un sp spec)Ordered By: Lars Dahl on 05-27-2024 Lymphocytes/100 WBC (Bld) 21.2 % 19-41 [facility] MCV (mean corpuscular volume ) determinationOrdered By: Lars Dahl on 05-27-2024 MCV (RBC) [Entitic vol] 88.4 fL 81-99 [facility] Mean corpuscular hemoglobin (MCH) determinationOrdered By: Lars Dahl on 05-27-2024 MCH (RBC) [Entitic mass] 29.0 pg 27.0-32.0 [facility] Mean corpuscular hemoglobin concentration (MCHC) determinationOrdered By: Lars Dahl on 05-27-2024 MCHC (RBC) [Mass/Vol] 32.8 g/dL 32-36 [facility] Mean platelet volume determi nationOrdered By: Lars Dahl on 05-27-2024 Platelet mean volume (Bld) [Entitic vol] 12.6 fL High 6.2-12.0 [facility] Monocyte percentageOrdered B y: Lars Dahl on 05-27-2024 Monocytes/100 WBC (Bld) 8.2 % 0-10 [facility] Neutrophil percentageOrdered By: Lars Dahl on 05-27-2024 Neutrophils/100 WBC (Bld) 64.4 % 47-70 [facility] Nucleated red blood cell per centageOrdered By: Lars Dahl on 05-27-2024 Nucleated RBC/100 WBC (Bld) [Ratio] 0 % 0-5 [facility] Platelet countOrdered By: Lazaro Dahl on 05-27-2024 Platelets (Bld) [#/Vol] 185 10*3/uL 150-450 [facility] Potassium measurementOrdered By: Lars Dahl on 05-27-2024 Potassium [Moles/Vol] 3.8 mmol/L 3.5-5.1 [facility] RBC Auto (Bld) [#/Vol]Ordere d By: Lars Dahl on 05-27-2024 RBC (Bld) [#/Vol] 4.21 10*6/uL 4.2-5.4 [facility] Serum anion gap measurementO rdered By: Lars Dahl on 05-27-2024 Anion gap [Moles/Vol] 4 mmol/L Low 5-15 [facility] Serum or plasma calcium zora urement (mass/volume)Ordered By: Lars Dahl on 05-27-2024 Calcium [Mass/Vol] 8.7 mg/dL 8.5-10.[address] [facility] Serum or plasma creatinine m easurement (mass/volume)Ordered By: Lars Dahl on 05-27-2024 Creatinine [Mass/Vol] 1.02 mg/dL 0.55-1.02 [facility] Comment on above: The validity of the calculated GFR & GFRAA in patients over 70 years has not been determined. Clinical correlation is essential. Serum or plasma urea nitroge n measurement (mass/volume)Ordered By: Lars Dahl on 05-27-2024 Urea nitrogen [Mass/Vol] 22 mg/dL High 7-18 [facility] Sodium levelOrdered By: Jorge Dahl on 05-27-2024 Sodium [Moles/Vol] 139 mmol/L 136-[address] [facility] TSH QnOrdered By: Lars judd on 05-27-2024 Thyroid Stimulating Hormone (TSH) 2.300 uIU/mL 0.358-3.740 [facility] Thyroid Stim Hormone (TSH)on 05-27-2024 TSH 2.300 uIU/mL Normal 0.358-3.740 [facility] Comment on above: Order Comment: 1Y Performed By: #### L 100.0100, L503.6620, L500.2500, L501.5425, L501.9520 ####[facility] [address] [place], [address] Troponin IOrdered By: Lars Dahl on 05-27-2024 Troponin I High Sensitivity 10 pg/mL 3.0-54.0 [facility] Comment on above: Please Note: New Mariajose t Units and Gender Specific Reference Ranges. For more information see Policy Stat Procedure Dawson High Sensitivity Troponin (TNIH) and attachments. White blood cell (WBC) count Ordered By: Lars Dahl on 05-27-2024 WBC (Bld) [#/Vol] 5.8 10*3/uL 4.4-11.[address] [facility] 12 Lead EKGon 05-25-2024 12 Lead EKG Normal [facility] Absolute neutrophil countOrd ered By: Reyna Monzon on 05-25-2024 Neutrophils (Bld) [#/Vol] 5.6 10*3/uL 2.0-7.7 [facility] Albumin to globulin ratioOrd ered By: Reynaantonella Monzon on 05-25-2024 Albumin/Globulin [Mass ratio] 0.9 {ratio} 0.9-2.4 [facility] Basophil percentageOrdered B y: Reyna Mnozon on 05-25-2024 Basophils/100 WBC (Bld) 0.4 % 0-1 [facility] Bilirubin, totalOrdered By: Reyna Monzon on 05-25-2024 Bilirubin [Mass/Vol] 1.20 mg/dL High 0.20-1.00 [facility] Comment on above: For patients on eltr ombopag therapy, use of Dimension Dawson TBIL is not recommended. Blood urea nitrogen (BUN)/cr eatinine ratioOrdered By: Reyna Monzon on 05-25-2024 Urea nitrogen/Creatinine [Mass ratio] 23.0 mg/mg High 10-20 [facility] CBC W/Diff, Automatedon 11-0 Absolute Lymph 0.73 X10 3/uL Low 0.83-4.51 [facility] Comment on above: Performed By: #### L 100.0100, L500.4050, L501.2450, L501.4020 ####[facility] [address] [place], [address] Absolute Neut 5.6 X10 3/uL Normal 2.0-7.7 [facility] Comment on above: Performed By: #### L 100.0100, L500.4050, L501.2450, L501.4020 ####[facility] [address] [place], [address] Basophils/100 WBC (Bld) 0.4 % Normal 0-1 [facility] Comment on above: Performed By: #### L 100.0100, L500.4050, L501.2450, L501.4020 ####[facility] [address] [place], [address] Eosinophils/100 WBC (Bld) 3.7 % Normal 0-5 [facility] Comment on above: Performed By: #### L 100.0100, L500.4050, L501.2450, L501.4020 ####[facility] [address] [place], [address] Erythrocyte distribution width (RBC) [Ratio] 12.7 % Normal 11.6-14.6 [facility] Comment on above: Performed By: #### L 100.0100, L500.4050, L501.2450, L501.4020 ####[facility] [address] [place], [address] Hematocrit (Bld) [Volume fraction] 40.0 % Normal 37-47 [facility] Comment on above: Performed By: #### L 100.0100, L500.4050, L501.2450, L501.4020 ####[facility] [address] [place], [address] Hemoglobin (Bld) [Mass/Vol] 13.0 g/dL Normal 12.0-15.0 [facility] Comment on above: Performed By: #### L 100.0100, L500.4050, L501.2450, L501.4020 ####[facility] [address] [place], [address] IG% 0.300 Normal 0.0-0.9 [facility] Comment on above: Result Comment: IG% - Immature Granulocytes (promyelocytes, myelocytes andmetamyelocytes) > 1% indicates that a LEFT SHIFT is Present. Performed By: #### L 100.0100, L500.4050, L501.2450, L501.4020 ####[facility] [address] [place], [address] Lymphocytes/100 WBC (Bld) 10.3 % Low 19-41 [facility] Comment on above: Performed By: #### L 100.0100, L500.4050, L501.2450, L501.4020 ####[facility] [address] [place], [address] MCH (RBC) [Entitic mass] 29.0 pg Normal 27.0-32.0 [facility] Comment on above: Performed By: #### L 100.0100, L500.4050, L501.2450, L501.4020 ####[facility] [address] [place], [address] MCHC (RBC) [Mass/Vol] 32.5 g/dL Normal 32-36 [facility] Comment on above: Performed By: #### L 100.0100, L500.4050, L501.2450, L501.4020 ####[facility] [address] [place], [address] MCV (RBC) [Entitic vol] 89.3 fL Normal 81-99 [facility] Comment on above: Performed By: #### L 100.0100, L500.4050, L501.2450, L501.4020 ####[facility] [address] [place], [address] Monocytes/100 WBC (Bld) 6.2 % Normal 0-10 [facility] Comment on above: Performed By: #### L 100.0100, L500.4050, L501.2450, L501.4020 ####[facility] [address] [place], [address] Neutrophils/100 WBC (Bld) 79.1 % High 47-70 [facility] Comment on above: Performed By: #### L 100.0100, L500.4050, L501.2450, L501.4020 ####[facility] [address] [place], [address] Nucleated RBC (Bld) [#/Vol] 0 10*3/uL Normal 0-5 [facility] Comment on above: Performed By: #### L 100.0100, L500.4050, L501.2450, L501.4020 ####[facility] [address] [place], [address] Platelet mean volume (Bld) [Entitic vol] 12.7 fL High 6.2-12.0 [facility] Comment on above: Performed By: #### L 100.0100, L500.4050, L501.2450, L501.4020 ####[facility] [address] [place], [address] Platelets (Bld) [#/Vol] 173 10*3/uL Normal 150-450 [facility] Comment on above: Performed By: #### L 100.0100, L500.4050, L501.2450, L501.4020 ####[facility] [address] [place], [address] RBC (Bld) [#/Vol] 4.48 10*6/uL Normal 4.2-5.4 [facility] Comment on above: Performed By: #### L 100.0100, L500.4050, L501.2450, L501.4020 ####[facility] [address] [place], [address] RDW SD 41.4 fl Normal 35.1-43.9 [facility] Comment on above: Performed By: #### L 100.0100, L500.4050, L501.2450, L501.4020 ####[facility] [address] [place], [address] WBC (Bld) [#/Vol] 7.1 10*3/uL Normal 4.4-11.[address] [facility] Comment on above: Performed By: #### L 100.0100, L500.4050, L501.2450, L501.4020 ####[facility] [address] [place], [address] CNPNon 05-25-2024 CNPN Normal [facility] Carbon dioxide measurementOr dered By: Reyna Monzon on 05-25-2024 CO2 [Moles/Vol] 25.0 mmol/L 21.0-32.0 [facility] Chest PA and Lateralon 05-25 Chest PA and Lateral Normal [facility] Chloride measurementOrdered By: Reyna Monzon on 05-25-2024 Chloride [Moles/Vol] 103 mmol/L 98-107 [facility] Comprehensive Metabolic Prof ilon 05-25-2024 Albumin [Mass/Vol] 3.3 g/dL Normal 3.2-5.[address] [facility] Comment on above: Order Comment: 'TROP ' Serial specimen #1, #2 or #3: 1 Performed By: #### L 100.0100, L500.4050, L501.2450, L501.4020 ####[facility] [address] [place], [address] Albumin/Globulin [Mass ratio] 0.9 {ratio} Normal 0.9-2.4 [facility] Comment on above: Order Comment: 'TROP ' Serial specimen #1, #2 or #3: 1 Performed By: #### L 100.0100, L500.4050, L501.2450, L501.4020 ####[facility] [address] [place], [address] ALK P 82 U/L Normal 45-117 [facility] Comment on above: Order Comment: 'TROP ' Serial specimen #1, #2 or #3: 1 Performed By: #### L 100.0100, L500.4050, L501.2450, L501.4020 ####[facility] [address] [place], [address] ALT [Catalytic activity/Vol] 20 U/L Normal 13-56 [facility] Comment on above: Order Comment: 'TROP ' Serial specimen #1, #2 or #3: 1 Performed By: #### L 100.0100, L500.4050, L501.2450, L501.4020 ####[facility] [address] [place], [address] AST [Catalytic activity/Vol] 15 U/L Normal 15-37 [facility] Comment on above: Order Comment: 'TROP ' Serial specimen #1, #2 or #3: 1 Performed By: #### L 100.0100, L500.4050, L501.2450, L501.4020 ####[facility] [address] [place], [address] Bilirubin [Mass/Vol] 1.20 mg/dL High 0.20-1.00 [facility] Comment on above: Order Comment: 'TROP ' Serial specimen #1, #2 or #3: 1 Result Comment: For patients on eltrombopag therapy, use of Dimension Dawson TBIL is not recommended. Performed By: #### L 100.0100, L500.4050, L501.2450, L501.4020 ####[facility] [address] [place], [address] BUN/CRE 23.0 RATIO High 10-20 [facility] Comment on above: Order Comment: 'TROP ' Serial specimen #1, #2 or #3: 1 Performed By: #### L 100.0100, L500.4050, L501.2450, L501.4020 ####[facility] [address] [place], [address] CA,Total 9.1 mg/dL Normal 8.5-10.1 [facility] Comment on above: Order Comment: 'TROP ' Serial specimen #1, #2 or #3: 1 Performed By: #### L 100.0100, L500.4050, L501.2450, L501.4020 ####[facility] [address] [place], [address] Chloride [Moles/Vol] 103 mmol/L Normal 98-107 [facility] Comment on above: Order Comment: 'TROP ' Serial specimen #1, #2 or #3: 1 Performed By: #### L 100.0100, L500.4050, L501.2450, L501.4020 ####[facility] [address] [place], [address] CO2 [Moles/Vol] 25.0 mmol/L Normal 21.0-32.0 [facility] Comment on above: Order Comment: 'TROP ' Serial specimen #1, #2 or #3: 1 Performed By: #### L 100.0100, L500.4050, L501.2450, L501.4020 ####[facility] [address] [place], [address] Creatinine [Mass/Vol] 0.87 mg/dL Normal 0.55-1.02 [facility] Comment on above: Order Comment: 'TROP ' Serial specimen #1, #2 or #3: 1 Result Comment: The validity of the calculated GFR GFRAA in patients over70 years has not been determined. Clinical correlation isessential. Performed By: #### L 100.0100, L500.4050, L501.2450, L501.4020 ####[facility] [address] [place], [address] ECRCL 81.14 ml/min Normal [facility] Comment on above: Order Comment: 'TROP ' Serial specimen #1, #2 or #3: 1 Performed By: #### L 100.0100, L500.4050, L501.2450, L501.4020 ####[facility] [address] [place], [address] EST GFR - AA 81 mL/min Normal >60 [facility] Comment on above: Order Comment: 'TROP ' Serial specimen #1, #2 or #3: 1 Result Comment: Afri can Fijian GFR Calc Performed By: #### L 100.0100, L500.4050, L501.2450, L501.4020 ####[facility] [address] [place], [address] GAP 8 Normal 5-15 [facility] Comment on above: Order Comment: 'TROP ' Serial specimen #1, #2 or #3: 1 Performed By: #### L 100.0100, L500.4050, L501.2450, L501.4020 ####[facility] [address] [place], [address] GFR/1.73 sq M.predicted among non-blacks MDRD (S/P/Bld) [Vol rate/Area] 67 mL/min/{1.73_m2} Normal >60 [facility] Comment on above: Order Comment: 'TROP ' Serial specimen #1, #2 or #3: 1 Result Comment: Non- GFR Calc Performed By: #### L 100.0100, L500.4050, L501.2450, L501.4020 ####[facility] [address] [place], [address] Globulin (S) [Mass/Vol] 3.6 g/dL Normal 2.2-4.2 [facility] Comment on above: Order Comment: 'TROP ' Serial specimen #1, #2 or #3: 1 Performed By: #### L 100.0100, L500.4050, L501.2450, L501.4020 ####[facility] [address] [place], [address] Glucose [Mass/Vol] 289 mg/dL High 74-[address] [facility] Comment on above: Order Comment: 'TROP ' Serial specimen #1, #2 or #3: 1 Result Comment: Gluc ose result greater than or equal to 200 mg/dLsuggests DIABETES MELLITUS per A.D.A. criteria. Performed By: #### L 100.0100, L500.4050, L501.2450, L501.4020 ####[facility] [address] [place], [address] Potassium [Moles/Vol] 4.2 mmol/L Normal 3.5-5.1 [facility] Comment on above: Order Comment: 'TROP ' Serial specimen #1, #2 or #3: 1 Performed By: #### L 100.0100, L500.4050, L501.2450, L501.4020 ####[facility] [address] [place], [address] Sodium [Moles/Vol] 136 mmol/L Normal 136-[address] [facility] Comment on above: Order Comment: 'TROP ' Serial specimen #1, #2 or #3: 1 Performed By: #### L 100.0100, L500.4050, L501.2450, L501.4020 ####[facility] [address] [place], [address] T PROT 6.9 g/dL Normal 6.4-8.2 [facility] Comment on above: Order Comment: 'TROP ' Serial specimen #1, #2 or #3: 1 Performed By: #### L 100.0100, L500.4050, L501.2450, L501.4020 ####[facility] [address] [place], [address] Urea nitrogen [Mass/Vol] 20 mg/dL High 7-18 [facility] Comment on above: Order Comment: 'TROP ' Serial specimen #1, #2 or #3: 1 Performed By: #### L 100.0100, L500.4050, L501.2450, L501.4020 ####[facility] [address] [place], [address] Emergency Department Summary on 05-25-2024 Emergency Department Summary Normal [facility] Eosinophil percentageOrdered By: Reyna Monzon on 05-25-2024 Eosinophils/100 WBC (Bld) 3.7 % 0-5 [facility] Erythrocyte distribution wid th ratioOrdered By: Reyna Monzon on 05-25-2024 Erythrocyte distribution width (RBC) [Ratio] 12.7 % 11.6-14.6 [facility] Erythrocyte distribution wid th standard deviationOrdered By: Reyna Monzon on 05-25-2024 Erythrocyte distribution width (RBC) [Entitic vol] 41.4 fL 35.1-43.9 [facility] Estimated glomerular filtrat ion rate (GFR) AmericanOrdered By: Reyna Monzon on 05-25-2024 Estimated GFR (MDRD) Amer 81 mL/min >60 [facility] Comment on above: GFR Calc Estimation of creatinine kimberly aranceOrdered By: Reyna Monzon on 05-25-2024 Estimated Creatinine Clearance Calc 81.14 ml/min [facility] Glomerular filtration rate ( GFR) estimationOrdered By: Reyna Monzon on 05-25-2024 Estimated GFR (MDRD) Non-Af Amer 67 mL/min >60 [facility] Comment on above: Non- GFR Calc Glucose measurementOrdered B y: Reyna Monzon on 05-25-2024 Glucose [Mass/Vol] 289 mg/dL High 74-[address] [facility] Comment on above: Glucose result great er than or equal to 200 mg/dLsuggests DIABETES MELLITUS per A.D.A. criteria. Hematocrit Auto (Bld) [Volum e fraction]Ordered By: Reyna Monzon on 05-25-2024 Hematocrit (Bld) [Volume fraction] 40.0 % 37-47 [facility] Hemoglobin measurementOrdere d By: Reyna Monzon on 05-25-2024 Hemoglobin (Bld) [Mass/Vol] 13.0 g/dL 12.0-15.0 [facility] Immature granulocytes/100 WB C Auto (Bld)Ordered By: Reyna Monzon on 05-25-2024 Immature granulocytes/100 WBC (Bld) 0.300 % 0.0-0.9 [facility] Comment on above: IG% - Immature Granu locytes (promyelocytes, myelocytes and metamyelocytes) > 1% indicates that a LEFT SHIFT is Present. L501.4020on 05-25-2024 TROPONIN-I HS 13 pg/mL Normal 3.0-54.0 [facility] Comment on above: Order Comment: 'TROP ' Serial specimen #1, #2 or #3: 1 Result Comment: Plea se Note: New Test Units and Gender Specific Reference Ranges. For more information see Policy Stat Procedure Dawson High Sensitivity Troponin (TNIH) and attachments. Performed By: #### L 100.0100, L500.4050, L501.2450, L501.4020 ####[facility] [address] [place], [address] Laboratory - Chemistry and C hemistry - challengeOrdered By: Reyna Monzon on 05-25-2024 AST [Catalytic activity/Vol] 15 U/L 15-37 [facility] Lipaseon 05-25-2024 Lipase [Catalytic activity/Vol] 15 U/L Normal 13-75 [facility] Comment on above: Order Comment: 'TROP ' Serial specimen #1, #2 or #3: 1 Result Comment: Plegm quintana note:LIPASE revised reference range effective 22.New Lipase methodology. Expected to produce lower valuesthan the previous assay method.NEW Reference Range: 13 - 75 U/L Performed By: #### L 100.0100, L500.4050, L501.2450, L501.4020 ####[facility] [address] [place], [place], [address] Lipase measurementOrdered By : Reyna Monzon on 05-25-2024 Lipase [Catalytic activity/Vol] 15 U/L 13-75 [facility] Comment on above: Please note:LIPASE r evised reference range effective 22. New Lipase methodology. Expected to produce lower values than the previous assay method. NEW Reference Range: 13 - 75 U/L Lymphocytes Auto (Unsp spec) [#/Vol]Ordered By: Reyna Monzon on 05-25-2024 Lymphocytes (Bld) [#/Vol] 0.73 10*3/uL Low 0.83-4.51 [facility] Lymphocytes/100 WBC Auto (Un sp spec)Ordered By: Reyna Monzon on 05-25-2024 Lymphocytes/100 WBC (Bld) 10.3 % Low 19-41 [facility] MCV (mean corpuscular volume ) determinationOrdered By: Reyna Monzon on 05-25-2024 MCV (RBC) [Entitic vol] 89.3 fL 81-99 [facility] Mean corpuscular hemoglobin (MCH) determinationOrdered By: Reyna Monzon on 05-25-2024 MCH (RBC) [Entitic mass] 29.0 pg 27.0-32.0 [facility] Mean corpuscular hemoglobin concentration (MCHC) determinationOrdered By: Reyna Monzon on 05-25-2024 MCHC (RBC) [Mass/Vol] 32.5 g/dL 32-36 [facility] Mean platelet volume determi nationOrdered By: Reyna Monzon on 05-25-2024 Platelet mean volume (Bld) [Entitic vol] 12.7 fL High 6.2-12.0 [facility] Monocyte percentageOrdered B y: Reyna Monzon on 05-25-2024 Monocytes/100 WBC (Bld) 6.2 % 0-10 [facility] Neutrophil percentageOrdered By: Reyna Monzon on 05-25-2024 Neutrophils/100 WBC (Bld) 79.1 % High 47-70 [facility] Nucleated red blood cell per centageOrdered By: Reyna Monzon on 05-25-2024 Nucleated RBC/100 WBC (Bld) [Ratio] 0 % 0-5 [facility] Platelet countOrdered By: Elias Monzon on 05-25-2024 Platelets (Bld) [#/Vol] 173 10*3/uL 150-450 [facility] Potassium measurementOrdered By: Reyna Monzon on 05-25-2024 Potassium [Moles/Vol] 4.2 mmol/L 3.5-5.1 [facility] RBC Auto (Bld) [#/Vol]Ordere d By: Reyna Monzon on 05-25-2024 RBC (Bld) [#/Vol] 4.48 10*6/uL 4.2-5.4 [facility] Serum anion gap measurementO rdered By: Reyna Monzon on 05-25-2024 Anion gap [Moles/Vol] 8 mmol/L 5-15 [facility] Serum globulin measurementOr dered By: Reyna Monzon on 05-25-2024 Globulin (S) [Mass/Vol] 3.6 g/dL 2.2-4.2 [facility] Serum or plasma alanine ramírez otransferase (ALT) measurementOrdered By: Reyna Monzon on 05-25-2024 ALT [Catalytic activity/Vol] 20 U/L 13-56 [facility] Serum or plasma albumin zora urement (mass/volume)Ordered By: Reyna Monzon on 05-25-2024 Albumin [Mass/Vol] 3.3 g/dL 3.2-5.[address] [facility] Serum or plasma alkaline dhiraj sphatase measurementOrdered By: Reyna Monzon on 05-25-2024 ALP [Catalytic activity/Vol] 82 U/L 45-117 [facility] Serum or plasma calcium zora urement (mass/volume)Ordered By: Reyna Monzon on 05-25-2024 Calcium [Mass/Vol] 9.1 mg/dL 8.5-10.[address] [facility] Serum or plasma creatinine m easurement (mass/volume)Ordered By: Reyna Monzon on 05-25-2024 Creatinine [Mass/Vol] 0.87 mg/dL 0.55-1.02 [facility] Comment on above: The validity of the calculated GFR & GFRAA in patients over 70 years has not been determined. Clinical correlation is essential. Serum or plasma urea nitroge n measurement (mass/volume)Ordered By: Reyna Monzon on 05-25-2024 Urea nitrogen [Mass/Vol] 20 mg/dL High 7-18 [facility] Sodium levelOrdered By: Sammy Monzon on 05-25-2024 Sodium [Moles/Vol] 136 mmol/L 136-[address] [facility] Total proteinOrdered By: Sultana Monzon on 05-25-2024 Protein [Mass/Vol] 6.9 g/dL 6.4-8.[address] [facility] Troponin IOrdered By: Reyna Moznon on 05-25-2024 Troponin I High Sensitivity 13 pg/mL 3.0-54.0 [facility] Comment on above: Please Note: New Mariajose t Units and Gender Specific Reference Ranges. For more information see Policy Stat Procedure Dawson High Sensitivity Troponin (TNIH) and attachments. White blood cell (WBC) count Ordered By: Reyna Monzon on 05-25-2024 WBC (Bld) [#/Vol] 7.1 10*3/uL 4.4-11.[address] [facility] CNOVon 05-23-2024 CNOV Normal [facility] HEMOGLOBIN A1C (POC)on 05-23 HbA1c (Bld) [Mass fraction] 6.9 % Abnormal 4.3 - 5.6 % [facility] Comment on above: Location:[facility], [address] [place] [address], [place], [place], [facility] Point of care (POC) Hemoglobin A1c (HGBA1C) [...] specific diabetes management situations: The POC device local delivery driver provides a normal range of 4.2% to 6.5% for the HGBA1C POC test. However, the [place] [employer] guidelines indicate that patients with [...] Interpretation and review of laboratory results Abnormal [facility] CNPTOUTREACHon 05-22-2024 CNPTOUTREACH Normal [facility] 12 Lead EKGon 05-18-2024 12 Lead EKG Normal [facility] BNP,B-Type NATRIURETIC PEPTI Vargas 05-18-2024 Natriuretic peptide B (Bld) [Mass/Vol] 96.5 pg/mL Normal 0-100 [facility] Comment on above: Performed By: #### L 501.9520, L100.0100, L503.6620, L500.2500, L501.5425 ####[facility] [address] [place], [address] Basic Metabolic Profile (BMP )on 05-18-2024 BUN/CRE 19.3 RATIO Normal 10-20 [facility] Comment on above: Order Comment: 1Y Performed By: #### L 501.9520, L100.0100, L503.6620, L500.2500, L501.5425 ####[facility] [address] [place], [address] CA,Total 9.1 mg/dL Normal 8.5-10.1 [facility] Comment on above: Order Comment: 1Y Performed By: #### L 501.9520, L100.0100, L503.6620, L500.2500, L501.5425 ####[facility] [address] [place], [address] Chloride [Moles/Vol] 106 mmol/L Normal 98-107 [facility] Comment on above: Order Comment: 1Y Performed By: #### L 501.9520, L100.0100, L503.6620, L500.2500, L501.5425 ####[facility] [address] [place], [address] CO2 [Moles/Vol] 29.0 mmol/L Normal 21.0-32.0 [facility] Comment on above: Order Comment: 1Y Performed By: #### L 501.9520, L100.0100, L503.6620, L500.2500, L501.5425 ####[facility] [address] [place], [address] Creatinine [Mass/Vol] 1.09 mg/dL High 0.55-1.02 [facility] Comment on above: Order Comment: 1Y Result Comment: The validity of the calculated GFR GFRAA in patients over70 years has not been determined. Clinical correlation isessential. Performed By: #### L 501.9520, L100.0100, L503.6620, L500.2500, L501.5425 ####[facility] [address] [place], [address] ECRCL 53.02 ml/min Normal [facility] Comment on above: Order Comment: 1Y Performed By: #### L 501.9520, L100.0100, L503.6620, L500.2500, L501.5425 ####[facility] [address] [place], [address] EST GFR - AA 62 mL/min Normal >60 [facility] Comment on above: Order Comment: 1Y Result Comment: Afri can Fijian GFR Calc Performed By: #### L 501.9520, L100.0100, L503.6620, L500.2500, L501.5425 ####[facility] [address] [place], [address] GAP 5 Normal 5-15 [facility] Comment on above: Order Comment: 1Y Performed By: #### L 501.9520, L100.0100, L503.6620, L500.2500, L501.5425 ####[facility] [address] [place], [address] GFR/1.73 sq M.predicted among non-blacks MDRD (S/P/Bld) [Vol rate/Area] 52 mL/min/{1.73_m2} Low >60 [facility] Comment on above: Order Comment: 1Y Result Comment: Non- GFR Calc Performed By: #### L 501.9520, L100.0100, L503.6620, L500.2500, L501.5425 ####[facility] [address] [place], [address] Glucose [Mass/Vol] 117 mg/dL High 74-[address] [facility] Comment on above: Order Comment: 1Y Result Comment: Fast ing Glucose result from 100 to 125 mg/dLsuggests IMPAIRED HOMEOSTASIS per A.D.A. criteria. Performed By: #### L 501.9520, L100.0100, L503.6620, L500.2500, L501.5425 ####[facility] [address] [place], [address] Potassium [Moles/Vol] 4.1 mmol/L Normal 3.5-5.1 [facility] Comment on above: Order Comment: 1Y Performed By: #### L 501.9520, L100.0100, L503.6620, L500.2500, L501.5425 ####[facility] [address] [place], [address] Sodium [Moles/Vol] 140 mmol/L Normal 136-[address] [facility] Comment on above: Order Comment: 1Y Performed By: #### L 501.9520, L100.0100, L503.6620, L500.2500, L501.5425 ####[facility] [address] [place], [address] Urea nitrogen [Mass/Vol] 21 mg/dL High 7-18 [facility] Comment on above: Order Comment: 1Y Performed By: #### L 501.9520, L100.0100, L503.6620, L500.2500, L501.5425 ####[facility] [address] [place], [address] Bedside Glucoseon 05-18-2024 FINGERSTICK GLU 139 mg/dL High 74-106 [facility] Comment on above: Result Comment: MERCEDES SUBRAMANIAN OF PATIENT CARE PER NURSING PROTOCOL Performed By: #### L 501.080 ####[facility] [address] [place], [address] CBC W/Diff, Automatedon -0 -2023 Absolute Lymph 1.02 X10 3/uL Normal 0.83-4.51 [facility] Comment on above: Performed By: #### L 501.9520, L100.0100, L503.6620, L500.2500, L501.5425 ####[facility] [address] [place], [address] Absolute Neut 4.6 X10 3/uL Normal 2.0-7.7 [facility] Comment on above: Performed By: #### L 501.9520, L100.0100, L503.6620, L500.2500, L501.5425 ####[facility] [address] [place], [address] Basophils/100 WBC (Bld) 0.5 % Normal 0-1 [facility] Comment on above: Performed By: #### L 501.9520, L100.0100, L503.6620, L500.2500, L501.5425 ####[facility] [address] [place], [address] Eosinophils/100 WBC (Bld) 5.0 % Normal 0-5 [facility] Comment on above: Performed By: #### L 501.9520, L100.0100, L503.6620, L500.2500, L501.5425 ####[facility] [address] [place], [address] Erythrocyte distribution width (RBC) [Ratio] 12.7 % Normal 11.6-14.6 [facility] Comment on above: Performed By: #### L 501.9520, L100.0100, L503.6620, L500.2500, L501.5425 ####[facility] [address] [place], [address] Hematocrit (Bld) [Volume fraction] 39.1 % Normal 37-47 [facility] Comment on above: Performed By: #### L 501.9520, L100.0100, L503.6620, L500.2500, L501.5425 ####[facility] [address] [place], [address] Hemoglobin (Bld) [Mass/Vol] 12.8 g/dL Normal 12.0-15.0 [facility] Comment on above: Performed By: #### L 501.9520, L100.0100, L503.6620, L500.2500, L501.5425 ####[facility] [address] [place], [address] IG% 0.200 Normal 0.0-0.9 [facility] Comment on above: Result Comment: IG% - Immature Granulocytes (promyelocytes, myelocytes andmetamyelocytes) > 1% indicates that a LEFT SHIFT is Present. Performed By: #### L 501.9520, L100.0100, L503.6620, L500.2500, L501.5425 ####[facility] [address] [place], [address] Lymphocytes/100 WBC (Bld) 15.8 % Low 19-41 [facility] Comment on above: Performed By: #### L 501.9520, L100.0100, L503.6620, L500.2500, L501.5425 ####[facility] [address] [place], [address] MCH (RBC) [Entitic mass] 29.2 pg Normal 27.0-32.0 [facility] Comment on above: Performed By: #### L 501.9520, L100.0100, L503.6620, L500.2500, L501.5425 ####[facility] [address] [place], [address] MCHC (RBC) [Mass/Vol] 32.7 g/dL Normal 32-36 [facility] Comment on above: Performed By: #### L 501.9520, L100.0100, L503.6620, L500.2500, L501.5425 ####[facility] [address] [place], [address] MCV (RBC) [Entitic vol] 89.1 fL Normal 81-99 [facility] Comment on above: Performed By: #### L 501.9520, L100.0100, L503.6620, L500.2500, L501.5425 ####[facility] [address] [place], [address] Monocytes/100 WBC (Bld) 8.2 % Normal 0-10 [facility] Comment on above: Performed By: #### L 501.9520, L100.0100, L503.6620, L500.2500, L501.5425 ####[facility] [address] [place], [address] Neutrophils/100 WBC (Bld) 70.3 % High 47-70 [facility] Comment on above: Performed By: #### L 501.9520, L100.0100, L503.6620, L500.2500, L501.5425 ####[facility] [address] [place], [address] Nucleated RBC (Bld) [#/Vol] 0 10*3/uL Normal 0-5 [facility] Comment on above: Performed By: #### L 501.9520, L100.0100, L503.6620, L500.2500, L501.5425 ####[facility] [address] [place], [address] Platelet mean volume (Bld) [Entitic vol] 12.6 fL High 6.2-12.0 [facility] Comment on above: Performed By: #### L 501.9520, L100.0100, L503.6620, L500.2500, L501.5425 ####[facility] [address] [place], [address] Platelets (Bld) [#/Vol] 194 10*3/uL Normal 150-450 [facility] Comment on above: Performed By: #### L 501.9520, L100.0100, L503.6620, L500.2500, L501.5425 ####[facility] [address] [place], [address] RBC (Bld) [#/Vol] 4.39 10*6/uL Normal 4.2-5.4 [facility] Comment on above: Performed By: #### L 501.9520, L100.0100, L503.6620, L500.2500, L501.5425 ####[facility] [address] [place], [address] RDW SD 41.8 fl Normal 35.1-43.9 [facility] Comment on above: Performed By: #### L 501.9520, L100.0100, L503.6620, L500.2500, L501.5425 ####[facility] [address] [place], [address] WBC (Bld) [#/Vol] 6.5 10*3/uL Normal 4.4-11.[address] [facility] Comment on above: Performed By: #### L 501.9520, L100.0100, L503.6620, L500.2500, L501.5425 ####[facility] [address] [place], [address] Chest 1 View (Portable)on Chest 1 View (Portable) Normal [facility] Emergency Department Summary on 05-18-2024 Emergency Department Summary Normal [facility] L501.4020on 05-18-2024 TROPONIN-I HS 9 pg/mL Normal 3.0-54.0 [facility] Comment on above: Result Comment: Plea se Note: New Test Units and Gender Specific Reference Ranges. For more information see Policy Stat Procedure Dawson High Sensitivity Troponin (TNIH) and attachments. Performed By: #### L 501.4020 ####[facility] [address] [place], [address] L501.5425on 05-18-2024 TROPONIN-I HS 8 pg/mL Normal 3.0-54.0 [facility] Comment on above: Order Comment: 1Y Result Comment: Plea se Note: New Test Units and Gender Specific Reference Ranges. For more information see Policy Stat Procedure Dawson High Sensitivity Troponin (TNIH) and attachments. Performed By: #### L 501.9520, L100.0100, L503.6620, L500.2500, L501.5425 ####[facility] [address] [place], [address] Thyroid Stim Hormone (TSH)on 05-18-2024 TSH 2.770 uIU/mL Normal 0.358-3.740 [facility] Comment on above: Order Comment: 1Y Performed By: #### L 501.9520, L100.0100, L503.6620, L500.2500, L501.5425 ####[facility] [address] [place], [address] CNPNon 05-10-2024 CNPN Normal [facility] CNOVon 05-07-2024 CNOV Normal [facility] 12 Lead EKGon 05-04-2024 12 Lead EKG Normal [facility] BNP,B-Type NATRIURETIC PEPTI Vargas 05-04-2024 Natriuretic peptide B (Bld) [Mass/Vol] 123.7 pg/mL High 0-100 [facility] Comment on above: Performed By: #### L 100.0100, L500.2500, L501.5425, L503.6620 ####[facility] [address] [place], [address] Basic Metabolic Profile (BMP )on 05-04-2024 BUN/CRE 24.4 RATIO High - [facility] Comment on above: Order Comment: 1Y Performed By: #### L 100.0100, L500.2500, L501.5425, L503.6620 ####[facility] [address] [place], [address] CA,Total 9.1 mg/dL Normal 8.5-10.1 [facility] Comment on above: Order Comment: 1Y Performed By: #### L 100.0100, L500.2500, L501.5425, L503.6620 ####[facility] [address] [place], [address] Chloride [Moles/Vol] 107 mmol/L Normal 98-107 [facility] Comment on above: Order Comment: 1Y Performed By: #### L 100.0100, L500.2500, L501.5425, L503.6620 ####[facility] [address] [place], [address] CO2 [Moles/Vol] 27.0 mmol/L Normal 21.0-32.0 [facility] Comment on above: Order Comment: 1Y Performed By: #### L 100.0100, L500.2500, L501.5425, L503.6620 ####[facility] [address] [place], [address] Creatinine [Mass/Vol] 0.94 mg/dL Normal 0.55-1.02 [facility] Comment on above: Order Comment: 1Y Result Comment: The validity of the calculated GFR GFRAA in patients over70 years has not been determined. Clinical correlation isessential. Performed By: #### L 100.0100, L500.2500, L501.5425, L503.6620 ####[facility] [address] [place], [address] EST GFR - AA 74 mL/min Normal >60 [facility] Comment on above: Order Comment: 1Y Result Comment: Afri can Fijian GFR Calc Performed By: #### L 100.0100, L500.2500, L501.5425, L503.6620 ####[facility] [address] [place], [address] GAP 6 Normal 5-15 [facility] Comment on above: Order Comment: 1Y Performed By: #### L 100.0100, L500.2500, L501.5425, L503.6620 ####[facility] [address] [place], [address] GFR/1.73 sq M.predicted among non-blacks MDRD (S/P/Bld) [Vol rate/Area] 61 mL/min/{1.73_m2} Normal >60 [facility] Comment on above: Order Comment: 1Y Result Comment: Non- GFR Calc Performed By: #### L 100.0100, L500.2500, L501.5425, L503.6620 ####[facility] [address] [place], [address] Glucose [Mass/Vol] 160 mg/dL High 74-[address] [facility] Comment on above: Order Comment: 1Y Result Comment: Fast ing Glucose result greater than or equal to 126 mg/dLsuggests DIABETES MELLITUS per A.D.A. criteria. Performed By: #### L 100.0100, L500.2500, L501.5425, L503.6620 ####[facility] [address] [place], [address] Potassium [Moles/Vol] 4.0 mmol/L Normal 3.5-5.1 [facility] Comment on above: Order Comment: 1Y Performed By: #### L 100.0100, L500.2500, L501.5425, L503.6620 ####[facility] [address] [place], [address] Sodium [Moles/Vol] 140 mmol/L Normal 136-[address] [facility] Comment on above: Order Comment: 1Y Performed By: #### L 100.0100, L500.2500, L501.5425, L503.6620 ####[facility] [address] [place], [address] Urea nitrogen [Mass/Vol] 23 mg/dL High 7-18 [facility] Comment on above: Order Comment: 1Y Performed By: #### L 100.0100, L500.2500, L501.5425, L503.6620 ####[facility] [address] [place], [address] CBC W/Diff, Automatedon 04-17 Absolute Lymph 1.25 X10 3/uL Normal 0.83-4.51 [facility] Comment on above: Performed By: #### L 100.0100, L500.2500, L501.5425, L503.6620 ####[facility] [address] [place], [address] Absolute Neut 4.8 X10 3/uL Normal 2.0-7.7 [facility] Comment on above: Performed By: #### L 100.0100, L500.2500, L501.5425, L503.6620 ####[facility] [address] [place], [address] Basophils/100 WBC (Bld) 0.6 % Normal 0-1 [facility] Comment on above: Performed By: #### L 100.0100, L500.2500, L501.5425, L503.6620 ####[facility] [address] [place], [address] Eosinophils/100 WBC (Bld) 4.9 % Normal 0-5 [facility] Comment on above: Performed By: #### L 100.0100, L500.2500, L501.5425, L503.6620 ####[facility] [address] [place], [address] Erythrocyte distribution width (RBC) [Ratio] 12.7 % Normal 11.6-14.6 [facility] Comment on above: Performed By: #### L 100.0100, L500.2500, L501.5425, L503.6620 ####[facility] [address] [place], [address] Hematocrit (Bld) [Volume fraction] 38.7 % Normal 37-47 [facility] Comment on above: Performed By: #### L 100.0100, L500.2500, L501.5425, L503.6620 ####[facility] [address] [place], [address] Hemoglobin (Bld) [Mass/Vol] 12.9 g/dL Normal 12.0-15.0 [facility] Comment on above: Performed By: #### L 100.0100, L500.2500, L501.5425, L503.6620 ####[facility] [address] [place], [address] IG% 0.100 Normal 0.0-0.9 [facility] Comment on above: Result Comment: IG% - Immature Granulocytes (promyelocytes, myelocytes andmetamyelocytes) > 1% indicates that a LEFT SHIFT is Present. Performed By: #### L 100.0100, L500.2500, L501.5425, L503.6620 ####[facility] [address] [place], [address] Lymphocytes/100 WBC (Bld) 18.1 % Low 19-41 [facility] Comment on above: Performed By: #### L 100.0100, L500.2500, L501.5425, L503.6620 ####[facility] [address] [place], [address] MCH (RBC) [Entitic mass] 29.4 pg Normal 27.0-32.0 [facility] Comment on above: Performed By: #### L 100.0100, L500.2500, L501.5425, L503.6620 ####[facility] [address] [place], [address] MCHC (RBC) [Mass/Vol] 33.3 g/dL Normal 32-36 [facility] Comment on above: Performed By: #### L 100.0100, L500.2500, L501.5425, L503.6620 ####[facility] [address] [place], [address] MCV (RBC) [Entitic vol] 88.2 fL Normal 81-99 [facility] Comment on above: Performed By: #### L 100.0100, L500.2500, L501.5425, L503.6620 ####[facility] [address] [place], [address] Monocytes/100 WBC (Bld) 7.3 % Normal 0-10 [facility] Comment on above: Performed By: #### L 100.0100, L500.2500, L501.5425, L503.6620 ####[facility] [address] [place], [address] Neutrophils/100 WBC (Bld) 69.0 % Normal 47-70 [facility] Comment on above: Performed By: #### L 100.0100, L500.2500, L501.5425, L503.6620 ####[facility] [address] [place], [address] Nucleated RBC (Bld) [#/Vol] 0 10*3/uL Normal 0-5 [facility] Comment on above: Performed By: #### L 100.0100, L500.2500, L501.5425, L503.6620 ####[facility] [address] [place], [address] Platelet mean volume (Bld) [Entitic vol] 12.1 fL High 6.2-12.0 [facility] Comment on above: Performed By: #### L 100.0100, L500.2500, L501.5425, L503.6620 ####[facility] [address] [place], [address] Platelets (Bld) [#/Vol] 198 10*3/uL Normal 150-450 [facility] Comment on above: Performed By: #### L 100.0100, L500.2500, L501.5425, L503.6620 ####[facility] [id number] [place], [address] RBC (Bld) [#/Vol] 4.39 10*6/uL Normal 4.2-5.4 [facility] Comment on above: Performed By: #### L 100.0100, L500.2500, L501.5425, L503.6620 ####[facility] [id number] [place], [address] RDW SD 41.0 fl Normal 35.1-43.9 [facility] Comment on above: Performed By: #### L 100.0100, L500.2500, L501.5425, L503.6620 ####[facility] [id number] [place], [address] WBC (Bld) [#/Vol] 6.9 10*3/uL Normal 4.4-11.[address] [facility] Comment on above: Performed By: #### L 100.0100, L500.2500, L501.5425, L503.6620 ####[facility] [address] [place], [address] Chest 1 View (Portable)on Chest 1 View (Portable) Normal [facility] Emergency Department Summary on 05-04-2024 Emergency Department Summary Normal [facility] L501.5425on 05-04-2024 TROPONIN-I HS 10 pg/mL Normal 3.0-54.0 [facility] Comment on above: Order Comment: 1Y Result Comment: Jeffrey quintana Note: New Test Units and Gender Specific Reference Ranges. For more information see Policy Stat Procedure Dawson High Sensitivity Troponin (TNIH) and attachments. Performed By: #### L 100.0100, L500.2500, L501.5425, L503.6620 ####[facility] [id number] [place], [address] CNPTOUTREACHon 04-19-2024 CNPTOUTREACH Normal [facility] CNOVon 04-18-2024 CNOV Normal [facility] COVID AND INFLUENZA A/B AND RSV PCR, ROUTINEon 04-18-2024 SARS-CoV-2 (COVID-19) RNA RAYMOND+probe Ql (Unsp spec) SARS-COV-2 (AGENT OF COVID-19) RNA: Not detected INFLUENZA A RNA: Not detected INFLUENZA B RNA: Not detected RESPIRATORY SYNCYTIAL VIRUS (RSV) RNA: Not detected Normal [facility] Comment on above: Performed By: #### C VFLRS ####[facility] LABCLIA [id number] [place] [address] [place] XR CHEST 2V FRONTAL/LATon XR CHEST 2V FRONTAL/LAT Normal C [facility] XR Chest PA and Lateralon IMPRESSION: No acute radiographic abnormality. Physician Assistant [facility] Transcribe Date/Time: Apr 18 2024 10:00A Dictated by : STEVEN JOHNSON MD This examination was interpreted and the report reviewed and electronically signed by: STEVEN JOHNSON MD on Apr 18 2024 10:01AM [facility] DIVISION OF RADIOLOGY * * *Final [...] spine. IMPRESSION IMPRESSION: No acute radiographic abnormality. Physician Assistant Surgery: EVIE Transcribe Date/Time: Apr 18 2024 10:00A Dictated by : STEVEN JOHNSON MD This examination was interpreted and the report reviewed and electronically signed by: STEVEN JOHNSON MD on Apr 18 2024 10:01AM [facility] Radiology Study observation (narrative) Jeremias zapata [facility] XR Chest PA and LateralOrder ed By: Ccf Provider on 04-18-2024 [facility] CNCNPATEDon 04-09-2024 CNCNPATED Normal [facility] CNPTOUTREACHon 04-04-2024 CNPTOUTREACH Normal [facility] NITRIC OXIDE, EXHALEDon 03-18 Zora Cortes RPF [...] DATE: March 30, 2024 TIME: 1:40 PM [facility] Absolute lymphocyte countOrd ered By: Tierney Francis on 11-28-2023 Lymphocytes Auto (Unsp spec) [#/Vol] 0.85 10*3/uL 0.83-4.51 [facility] Automated lymphocyte count a s percentage of total leukocytesOrdered By: Tierney Francis on 11-28-2023 Lymphocytes/100 WBC Auto (Unsp spec) 15.1 % 19-41 [facility] Basophil percentageOrdered B y: Tierney Francis on 11-28-2023 Basophils/100 WBC (Bld) 0.4 % 0-1 [facility] Chloride [Moles/Vol] 102 mmol/L 98-107 [facility] Eosinophils/100 WBC (Bld) 4.6 % 0-5 [facility] Glucose [Mass/Vol] 325 mg/dL 74-[address] [facility] Comment on above: Glucose result great er than or equal to 200 mg/dLsuggests DIABETES MELLITUS per A.D.A. criteria. Hemoglobin (Bld) [Mass/Vol] 12.5 g/dL 12.0-15.0 [facility] Monocytes/100 WBC (Bld) 8.2 % 0-10 [facility] Neutrophils (Bld) [#/Vol] 4.0 10*3/uL 2.0-7.7 [facility] Neutrophils/100 WBC (Bld) 71.5 % 47-70 [facility] Potassium [Moles/Vol] 3.9 mmol/L 3.5-5.1 [facility] Sodium [Moles/Vol] 136 mmol/L 136-[address] [facility] WBC (Bld) [#/Vol] 5.6 10*3/uL 4.4-11.[address] [facility] Determination of erythrocyte mean corpuscular volume (MCV)Ordered By: Tierney Francis on 11-28-2023 MCV (RBC) [Entitic vol] 90.1 fL 81-99 [facility] Erythrocyte distribution wid th ratioOrdered By: Tierney Francis on 11-28-2023 Erythrocyte distribution width (RBC) [Ratio] 12.7 % 11.6-14.6 [facility] Erythrocyte distribution wid th standard deviationOrdered By: Tierney Francis on 11-28-2023 Erythrocyte distribution width (RBC) [Entitic vol] 41.8 fL 35.1-43.9 [facility] Hematocrit Auto (Bld) [Volum e fraction]Ordered By: Tierney Francis on 11-28-2023 Hematocrit (Bld) [Volume fraction] 39.3 % 37-47 [facility] Immature granulocytes/100 WB C Auto (Bld)Ordered By: Tierney Francis on 11-28-2023 Immature granulocytes/100 WBC (Bld) 0.200 % 0.0-0.9 [facility] Comment on above: IG% - Immature Granu locytes (promyelocytes, myelocytes and metamyelocytes) > 1% indicates that a LEFT SHIFT is Present. Laboratory - Chemistry and C hemistry - challengeOrdered By: Tierney Francis on 11-28-2023 CO2 [Moles/Vol] 31.0 mmol/L 21.0-32.0 [facility] Urea nitrogen/Creatinine [Mass ratio] 18.2 mg/mg 10-20 [facility] Laboratory - Hematology and Cell countsOrdered By: Tierney Francis on 11-28-2023 MCH (RBC) [Entitic mass] 28.7 pg 27.0-32.0 [facility] MCHC (RBC) [Mass/Vol] 31.8 g/dL 32-36 [facility] Nucleated RBC/100 WBC (Bld) [Ratio] 0 % 0-5 [facility] Platelet mean volume (Bld) [Entitic vol] 12.4 fL 6.2-12.0 [facility] Platelets (Bld) [#/Vol] 181 10*3/uL 150-450 [facility] No Panel InformationOrdered By: Tierney Francis on 11-28-2023 Estimated Creatinine Clearance Calc 84.86 ml/min [facility] Estimated GFR (MDRD) Amer 80 mL/min >60 [facility] Comment on above: GFR Calc Estimated GFR (MDRD) Non-Af Amer 66 mL/min >60 [facility] Comment on above: Non- GFR Calc RBC Auto (Bld) [#/Vol]Ordere d By: Tierney Francis on 11-28-2023 RBC (Bld) [#/Vol] 4.36 10*6/uL 4.2-5.4 [facility] Serum or plasma calcium zora urement (mass/volume)Ordered By: Tierney Francis on 11-28-2023 Calcium [Mass/Vol] 9.1 mg/dL 8.5-10.[address] [facility] Serum or plasma creatinine m easurement (mass/volume)Ordered By: Tierney Francis on 11-28-2023 Creatinine [Mass/Vol] 0.88 mg/dL 0.55-1.02 [facility] Comment on above: The validity of the calculated GFR & GFRAA in patients over 70 years has not been determined. Clinical correlation is essential. Serum or plasma urea nitroge n measurement (mass/volume)Ordered By: Tierney Francis on 11-28-2023 Urea nitrogen [Mass/Vol] 16 mg/dL 7-18 [facility] Thin prep Papanicolaou smear with manual screeningOrdered By: Tierney Francis on 11-28-2023 Thin prep Papanicolaou smear with manual screening 3 5-15 [facility] Thin prep Papanicolaou smear with manual screening 309 mg/dL 74-106 [facility] Comment on above: MANAGEMENT OF PATIEN T CARE PER NURSING PROTOCOL Thin prep Papanicolaou smear with manual screeningOrdered By: Tierney Francis on 11-07-2023 Thin prep Papanicolaou smear with manual screening 282 mg/dL 74-106 [facility] Comment on above: MANAGEMENT OF PATIEN T CARE PER NURSING PROTOCOL Absolute lymphocyte countOrd ered By: Holland Sanches on 11-06-2023 Lymphocytes Auto (Unsp spec) [#/Vol] 0.97 10*3/uL 0.83-4.51 [facility] Automated lymphocyte count a s percentage of total leukocytesOrdered By: Holland Sanches on 11-06-2023 Lymphocytes/100 WBC Auto (Unsp spec) 15.2 % 19-41 [facility] Basophil percentageOrdered B y: Holland Sanches on 11-06-2023 Basophils/100 WBC (Bld) 0.5 % 0-1 [facility] Chloride [Moles/Vol] 103 mmol/L 98-107 [facility] Eosinophils/100 WBC (Bld) 5.8 % 0-5 [facility] Glucose [Mass/Vol] 160 mg/dL 74-[address] [facility] Comment on above: Fasting Glucose resu lt greater than or equal to 126 mg/dL suggests DIABETES MELLITUS per A.D.A. criteria. Hemoglobin (Bld) [Mass/Vol] 12.8 g/dL 12.0-15.0 [facility] Monocytes/100 WBC (Bld) 6.9 % 0-10 [facility] Neutrophils (Bld) [#/Vol] 4.6 10*3/uL 2.0-7.7 [facility] Neutrophils/100 WBC (Bld) 71.4 % 47-70 [facility] Potassium [Moles/Vol] 4.0 mmol/L 3.5-5.1 [facility] Sodium [Moles/Vol] 138 mmol/L 136-[address] [facility] WBC (Bld) [#/Vol] 6.4 10*3/uL 4.4-11.[address] [facility] Determination of erythrocyte mean corpuscular volume (MCV)Ordered By: Holland Sanches on 11-06-2023 MCV (RBC) [Entitic vol] 89.7 fL 81-99 [facility] Erythrocyte distribution wid th ratioOrdered By: Holland Sanches on 11-06-2023 Erythrocyte distribution width (RBC) [Ratio] 13.2 % 11.6-14.6 [facility] Erythrocyte distribution wid th standard deviationOrdered By: Holland Sanches on 11-06-2023 Erythrocyte distribution width (RBC) [Entitic vol] 42.9 fL 35.1-43.9 [facility] Hematocrit Auto (Bld) [Volum e fraction]Ordered By: Holland Sanches on 11-06-2023 Hematocrit (Bld) [Volume fraction] 39.0 % 37-47 [facility] Immature granulocytes/100 WB C Auto (Bld)Ordered By: Holland Sanches on 11-06-2023 Immature granulocytes/100 WBC (Bld) 0.200 % 0.0-0.9 [facility] Comment on above: IG% - Immature Granu locytes (promyelocytes, myelocytes and metamyelocytes) > 1% indicates that a LEFT SHIFT is Present. Laboratory - Chemistry and C hemistry - challengeOrdered By: Holland Sanches on 11-06-2023 CO2 [Moles/Vol] 29.0 mmol/L 21.0-32.0 [facility] Urea nitrogen/Creatinine [Mass ratio] 28.9 mg/mg 10-20 [facility] Laboratory - Hematology and Cell countsOrdered By: Holland Sanches on 11-06-2023 MCH (RBC) [Entitic mass] 29.4 pg 27.0-32.0 [facility] MCHC (RBC) [Mass/Vol] 32.8 g/dL 32-36 [facility] Nucleated RBC/100 WBC (Bld) [Ratio] 0 % 0-5 [facility] Platelet mean volume (Bld) [Entitic vol] 13.0 fL 6.2-12.0 [facility] Platelets (Bld) [#/Vol] 200 10*3/uL 150-450 [facility] No Panel InformationOrdered By: Holland Sanches on 11-06-2023 Troponin I High Sensitivity 12 pg/mL 3.0-54.0 [facility] Comment on above: Please Note: New Mariajose t Units and Gender Specific Reference Ranges. For more information see Policy Stat Procedure Dawson High Sensitivity Troponin (TNIH) and attachments. Estimated GFR (MDRD) Amer 81 mL/min >60 [facility] Comment on above: GFR Calc Estimated GFR (MDRD) Non-Af Amer 67 mL/min >60 [facility] Comment on above: Non- GFR Calc RBC Auto (Bld) [#/Vol]Ordere d By: Holland Sanches on 11-06-2023 RBC (Bld) [#/Vol] 4.35 10*6/uL 4.2-5.4 [facility] Serum or plasma calcium zora urement (mass/volume)Ordered By: Holland Sanches on 11-06-2023 Calcium [Mass/Vol] 9.1 mg/dL 8.5-10.[address] [facility] Serum or plasma creatinine m easurement (mass/volume)Ordered By: Holland Sanches on 11-06-2023 Creatinine [Mass/Vol] 0.87 mg/dL 0.55-1.02 [facility] Comment on above: The validity of the calculated GFR & GFRAA in patients over 70 years has not been determined. Clinical correlation is essential. Serum or plasma urea nitroge n measurement (mass/volume)Ordered By: Holland Sanches on 11-06-2023 Urea nitrogen [Mass/Vol] 25 mg/dL 7-18 [facility] Thin prep Papanicolaou smear with manual screeningOrdered By: Holland Sanches on 11-06-2023 Thin prep Papanicolaou smear with manual screening 6 11-29 [facility] US DVT LOWER RTon 10-31-2023 US [...] and stored in a permanent archive. MQ: [id number] COMPARISON: None RESULT: RIGHT LOWER EXTREMITY PROXIMAL [...] imaged segments of the right lower extremity. Physician Assistant Surgery: [facility] Transcribe Date/Time: Oct 31 2023 1:20P Dictated by : ENDY GOODMAN MD This examination was interpreted and the report reviewed and electronically signed by: ENDY GOODMAN MD on Oct 31 2023 1:21PM EST [id number] Normal [facility] US Lower extremity vein - de chloe 10-31-2023 [facility] Absolute lymphocyte countOrd ered By: Tierney Francis on 10-28-2023 Lymphocytes Auto (Unsp spec) [#/Vol] 0.72 10*3/uL 0.83-4.51 [facility] Automated lymphocyte count a s percentage of total leukocytesOrdered By: Tierney Francis on 10-28-2023 Lymphocytes/100 WBC Auto (Unsp spec) 14.4 % 19-41 [facility] Basophil percentageOrdered B y: Tierney Francis on 04-12-2024 Basophils/100 WBC (Bld) 0.6 % 0-1 [facility] Chloride [Moles/Vol] 103 mmol/L 98-107 [facility] Eosinophils/100 WBC (Bld) 5.4 % 0-5 [facility] Glucose [Mass/Vol] 315 mg/dL 74-[address] [facility] Comment on above: Glucose result great er than or equal to 200 mg/dLsuggests DIABETES MELLITUS per A.D.A. criteria. Hemoglobin (Bld) [Mass/Vol] 12.5 g/dL 12.0-15.0 [facility] Monocytes/100 WBC (Bld) 6.2 % 0-10 [facility] Neutrophils (Bld) [#/Vol] 3.7 10*3/uL 2.0-7.7 [facility] Neutrophils/100 WBC (Bld) 73.4 % 47-70 [facility] Potassium [Moles/Vol] 4.0 mmol/L 3.5-5.1 [facility] Sodium [Moles/Vol] 136 mmol/L 136-[address] [facility] WBC (Bld) [#/Vol] 5.0 10*3/uL 4.4-11.[address] [facility] Determination of erythrocyte mean corpuscular volume (MCV)Ordered By: Tierney Francis on 10-28-2023 MCV (RBC) [Entitic vol] 89.3 fL 81-99 [facility] Erythrocyte distribution wid th ratioOrdered By: Tierney Francis on 10-28-2023 Erythrocyte distribution width (RBC) [Ratio] 12.9 % 11.6-14.6 [facility] Erythrocyte distribution wid th standard deviationOrdered By: Tierney Francis on 10-28-2023 Erythrocyte distribution width (RBC) [Entitic vol] 42.0 fL 35.1-43.9 [facility] Hematocrit Auto (Bld) [Volum e fraction]Ordered By: Tierney Francis on 10-28-2023 Hematocrit (Bld) [Volume fraction] 38.4 % 37-47 [facility] Immature granulocytes/100 WB C Auto (Bld)Ordered By: Tierney Francis on 10-28-2023 Immature granulocytes/100 WBC (Bld) 0.000 % 0.0-0.9 [facility] Comment on above: IG% - Immature Granu locytes (promyelocytes, myelocytes and metamyelocytes) > 1% indicates that a LEFT SHIFT is Present. Laboratory - Chemistry and C hemistry - challengeOrdered By: Tierney Francis on 10-28-2023 CO2 [Moles/Vol] 29.0 mmol/L 21.0-32.0 [facility] Urea nitrogen/Creatinine [Mass ratio] 22.1 mg/mg 10-20 [facility] Laboratory - Hematology and Cell countsOrdered By: Tierney Francis on 10-28-2023 MCH (RBC) [Entitic mass] 29.1 pg 27.0-32.0 [facility] MCHC (RBC) [Mass/Vol] 32.6 g/dL 32-36 [facility] Nucleated RBC/100 WBC (Bld) [Ratio] 0 % 0-5 [facility] Platelet mean volume (Bld) [Entitic vol] 12.1 fL 6.2-12.0 [facility] Platelets (Bld) [#/Vol] 170 10*3/uL 150-450 [facility] No Panel InformationOrdered By: Tierney Francis on 10-28-2023 Estimated Creatinine Clearance Calc 78.68 ml/min [facility] Estimated GFR (MDRD) Amer 73 mL/min >60 [facility] Comment on above: GFR Calc Estimated GFR (MDRD) Non-Af Amer 60 mL/min >60 [facility] Comment on above: Non- GFR Calc Troponin I High Sensitivity 10 pg/mL 3.0-54.0 [facility] Comment on above: Please Note: New Mariajose t Units and Gender Specific Reference Ranges. For more information see Policy Stat Procedure Dawson High Sensitivity Troponin (TNIH) and attachments. RBC Auto (Bld) [#/Vol]Ordere d By: Tierney Francis on 10-28-2023 RBC (Bld) [#/Vol] 4.30 10*6/uL 4.2-5.4 [facility] Serum or plasma calcium zora urement (mass/volume)Ordered By: Tierney Francis on 10-28-2023 Calcium [Mass/Vol] 8.8 mg/dL 8.5-10.[address] [facility] Serum or plasma creatinine m easurement (mass/volume)Ordered By: Tierney Francis on 10-28-2023 Creatinine [Mass/Vol] 0.95 mg/dL 0.55-1.02 [facility] Comment on above: The validity of the calculated GFR & GFRAA in patients over 70 years has not been determined. Clinical correlation is essential. Serum or plasma urea nitroge n measurement (mass/volume)Ordered By: Tierney Francis on 10-28-2023 Urea nitrogen [Mass/Vol] 21 mg/dL 7-18 [facility] Thin prep Papanicolaou smear with manual screeningOrdered By: Tierney Francis on 10-28-2023 Thin prep Papanicolaou smear with manual screening 288 mg/dL [facility] Comment on above: MANAGEMENT OF PATIEN T CARE PER NURSING PROTOCOL Thin prep Papanicolaou smear with manual screening 274 mg/dL [facility] Comment on above: MANAGEMENT OF PATIEN T CARE PER NURSING PROTOCOL Thin prep Papanicolaou smear with manual screening 4 5-15 [facility] Absolute lymphocyte countOrd ered By: Amber Martino on 10-01-2023 Lymphocytes Auto (Unsp spec) [#/Vol] 0.78 10*3/uL 0.83-4.51 [facility] Automated lymphocyte count a s percentage of total leukocytesOrdered By: Amber Martino on 10-01-2023 Lymphocytes/100 WBC Auto (Unsp spec) 9.3 % 19-41 [facility] Basophil percentageOrdered B y: Amber Martino on 10-01-2023 Basophils/100 WBC (Bld) 0.4 % 0-1 [facility] Chloride [Moles/Vol] 103 mmol/L 98-107 [facility] Eosinophils/100 WBC (Bld) 1.2 % 0-5 [facility] Glucose [Mass/Vol] 163 mg/dL 74-[address] [facility] Comment on above: Fasting Glucose resu lt greater than or equal to 126 mg/dL suggests DIABETES MELLITUS per A.D.A. criteria. Hemoglobin (Bld) [Mass/Vol] 12.7 g/dL 12.0-15.0 [facility] Monocytes/100 WBC (Bld) 7.6 % 0-10 [facility] Neutrophils (Bld) [#/Vol] 6.9 10*3/uL 2.0-7.7 [facility] Neutrophils/100 WBC (Bld) 81.4 % 47-70 [facility] Potassium [Moles/Vol] 3.9 mmol/L 3.5-5.1 [facility] Sodium [Moles/Vol] 138 mmol/L 136-[address] [facility] WBC (Bld) [#/Vol] 8.4 10*3/uL 4.4-11.[address] [facility] Determination of erythrocyte mean corpuscular volume (MCV)Ordered By: Amber Martino on 10-01-2023 MCV (RBC) [Entitic vol] 89.2 fL 81-99 [facility] Erythrocyte distribution wid th ratioOrdered By: Amber Martino on 10-01-2023 Erythrocyte distribution width (RBC) [Ratio] 12.5 % 11.6-14.6 [facility] Erythrocyte distribution wid th standard deviationOrdered By: Amber Martino on 10-01-2023 Erythrocyte distribution width (RBC) [Entitic vol] 41.0 fL 35.1-43.9 [facility] Hematocrit Auto (Bld) [Volum e fraction]Ordered By: Amber Martino on 10-01-2023 Hematocrit (Bld) [Volume fraction] 39.6 % 37-47 [facility] Immature granulocytes/100 WB C Auto (Bld)Ordered By: Amber Martino on 10-01-2023 Immature granulocytes/100 WBC (Bld) 0.100 % 0.0-0.9 [facility] Comment on above: IG% - Immature Granu locytes (promyelocytes, myelocytes and metamyelocytes) > 1% indicates that a LEFT SHIFT is Present. Laboratory - Chemistry and C hemistry - challengeOrdered By: Amber Martino on 10-01-2023 CO2 [Moles/Vol] 29.0 mmol/L 21.0-32.0 [facility] Urea nitrogen/Creatinine [Mass ratio] 15.7 mg/mg 10-20 [facility] Laboratory - Hematology and Cell countsOrdered By: Amber Martino on 10-01-2023 MCH (RBC) [Entitic mass] 28.6 pg 27.0-32.0 [facility] MCHC (RBC) [Mass/Vol] 32.1 g/dL 32-36 [facility] Nucleated RBC/100 WBC (Bld) [Ratio] 0 % 0-5 [facility] Platelet mean volume (Bld) [Entitic vol] 12.1 fL 6.2-12.0 [facility] Platelets (Bld) [#/Vol] 182 10*3/uL 150-450 [facility] Laboratory - Microbiology an d Antimicrobial susceptibilityOrdered By: Amber Martino on 10-01-2023 SARS-CoV-2 (COVID-19) RNA RAYMOND+probe Ql (Unsp spec) [facility] No Panel InformationOrdered By: Amber Martino on 10-01-2023 Estimated Creatinine Clearance Calc 92.45 ml/min [facility] Estimated GFR (MDRD) Amer 94 mL/min >60 [facility] Comment on above: GFR Calc Estimated GFR (MDRD) Non-Af Amer 78 mL/min >60 [facility] Comment on above: Non- GFR Calc Troponin I High Sensitivity 8 pg/mL 3.0-54.0 [facility] Comment on above: Please Note: New Mariajose t Units and Gender Specific Reference Ranges. For more information see Policy Stat Procedure Dawson High Sensitivity Troponin (TNIH) and attachments. RBC Auto (Bld) [#/Vol]Ordere d By: Amber Martino on 10-01-2023 RBC (Bld) [#/Vol] 4.44 10*6/uL 4.2-5.4 [facility] Serum or plasma calcium zora urement (mass/volume)Ordered By: Amber Martino on 10-01-2023 Calcium [Mass/Vol] 9.0 mg/dL 8.5-10.[address] [facility] Serum or plasma creatinine m easurement (mass/volume)Ordered By: Amber Martino on 10-01-2023 Creatinine [Mass/Vol] 0.77 mg/dL 0.55-1.02 [facility] Comment on above: The validity of the calculated GFR & GFRAA in patients over 70 years has not been determined. Clinical correlation is essential. Serum or plasma urea nitroge n measurement (mass/volume)Ordered By: Amber Martino on 10-01-2023 Urea nitrogen [Mass/Vol] 12 mg/dL 7-18 [facility] Thin prep Papanicolaou smear with manual screeningOrdered By: Amber Martino on 10-01-2023 Thin prep Papanicolaou smear with manual screening 6 5-15 [facility] Absolute lymphocyte countOrd ered By: Nik Nunez on 09-21-2023 Lymphocytes Auto (Unsp spec) [#/Vol] 1.12 10*3/uL 0.83-4.51 [facility] Automated lymphocyte count a s percentage of total leukocytesOrdered By: Nik Nunez on 09-21-2023 Lymphocytes/100 WBC Auto (Unsp spec) 17.9 % 19-41 [facility] Basophil percentageOrdered B y: Nik Nunez on 09-21-2023 Basophils/100 WBC (Bld) 0.3 % 0-1 [facility] Chloride [Moles/Vol] 107 mmol/L 98-107 [facility] Eosinophils/100 WBC (Bld) 5.8 % 0-5 [facility] Glucose [Mass/Vol] 148 mg/dL 74-[address] [facility] Comment on above: Fasting Glucose resu lt greater than or equal to 126 mg/dL suggests DIABETES MELLITUS per A.D.A. criteria. Hemoglobin (Bld) [Mass/Vol] 12.5 g/dL 12.0-15.0 [facility] Monocytes/100 WBC (Bld) 8.3 % 0-10 [facility] Neutrophils (Bld) [#/Vol] 4.2 10*3/uL 2.0-7.7 [facility] Neutrophils/100 WBC (Bld) 67.5 % 47-70 [facility] Potassium [Moles/Vol] 3.8 mmol/L 3.5-5.1 [facility] Sodium [Moles/Vol] 139 mmol/L 136-[address] [facility] WBC (Bld) [#/Vol] 6.3 10*3/uL 4.4-11.[address] [facility] Determination of erythrocyte mean corpuscular volume (MCV)Ordered By: Nik Nunez on 09-21-2023 MCV (RBC) [Entitic vol] 88.2 fL 81-99 [facility] Erythrocyte distribution wid th ratioOrdered By: Nik Nunez on 09-21-2023 Erythrocyte distribution width (RBC) [Ratio] 12.6 % 11.6-14.6 [facility] Erythrocyte distribution wid th standard deviationOrdered By: Nik Nunez on 09-21-2023 Erythrocyte distribution width (RBC) [Entitic vol] 40.6 fL 35.1-43.9 [facility] Hematocrit Auto (Bld) [Volum e fraction]Ordered By: Niknola Nunez on 09-21-2023 Hematocrit (Bld) [Volume fraction] 38.8 % 37-47 [facility] Immature granulocytes/100 WB C Auto (Bld)Ordered By: Nik Nunez on 09-21-2023 Immature granulocytes/100 WBC (Bld) 0.200 % 0.0-0.9 [facility] Comment on above: IG% - Immature Granu locytes (promyelocytes, myelocytes and metamyelocytes) > 1% indicates that a LEFT SHIFT is Present. Laboratory - Chemistry and C hemistry - challengeOrdered By: Nik Nunez on 09-21-2023 CO2 [Moles/Vol] 29.0 mmol/L 21.0-32.0 [facility] Urea nitrogen/Creatinine [Mass ratio] 16.0 mg/mg 10-20 [facility] Laboratory - Hematology and Cell countsOrdered By: Nik Nunez on 09-21-2023 MCH (RBC) [Entitic mass] 28.4 pg 27.0-32.0 [facility] MCHC (RBC) [Mass/Vol] 32.2 g/dL 32-36 [facility] Nucleated RBC/100 WBC (Bld) [Ratio] 0 % 0-5 [facility] Platelet mean volume (Bld) [Entitic vol] 11.8 fL 6.2-12.0 [facility] Platelets (Bld) [#/Vol] 209 10*3/uL 150-450 [facility] No Panel InformationOrdered By: Niknola Nunez on 09-21-2023 Troponin I High Sensitivity 10 pg/mL 3.0-54.0 [facility] Comment on above: Please Note: New Mariajose t Units and Gender Specific Reference Ranges. For more information see Policy Stat Procedure Dawson High Sensitivity Troponin (TNIH) and attachments. Estimated Creatinine Clearance Calc 74.72 ml/min [facility] Estimated GFR (MDRD) Amer 69 mL/min >60 [facility] Comment on above: GFR Calc Estimated GFR (MDRD) Non-Af Amer 57 mL/min >60 [facility] Comment on above: Non- GFR Calc RBC Auto (Bld) [#/Vol]Ordere d By: Nik Nunez on 09-21-2023 RBC (Bld) [#/Vol] 4.40 10*6/uL 4.2-5.4 [facility] Serum or plasma calcium zora urement (mass/volume)Ordered By: Nik Nunez on 09-21-2023 Calcium [Mass/Vol] 9.0 mg/dL 8.5-10.[address] [facility] Serum or plasma creatinine m easurement (mass/volume)Ordered By: Nik Nunez on 09-21-2023 Creatinine [Mass/Vol] 1.00 mg/dL 0.55-1.02 [facility] Comment on above: The validity of the calculated GFR & GFRAA in patients over 70 years has not been determined. Clinical correlation is essential. Serum or plasma urea nitroge n measurement (mass/volume)Ordered By: Nik Nunez on 09-21-2023 Urea nitrogen [Mass/Vol] 16 mg/dL 7-18 [facility] Thin prep Papanicolaou smear with manual screeningOrdered By: Nik Nunez on 09-21-2023 Thin prep Papanicolaou smear with manual screening 3 5-15 [facility] Absolute lymphocyte countOrd ered By: Benjamín Stanford on 09-16-2023 Lymphocytes Auto (Unsp spec) [#/Vol] 1.04 10*3/uL 0.83-4.51 [facility] Automated lymphocyte count a s percentage of total leukocytesOrdered By: Benjamín Stanford on 09-16-2023 Lymphocytes/100 WBC Auto (Unsp spec) 14.9 % 19-41 [facility] Basophil percentageOrdered B y: Benjamín Stanford on 09-16-2023 Basophils/100 WBC (Bld) 0.7 % 0-1 [facility] Chloride [Moles/Vol] 104 mmol/L 98-107 [facility] Eosinophils/100 WBC (Bld) 4.1 % 0-5 [facility] Glucose [Mass/Vol] 144 mg/dL 74-[address] [facility] Comment on above: Fasting Glucose resu lt greater than or equal to 126 mg/dL suggests DIABETES MELLITUS per A.D.A. criteria. Hemoglobin (Bld) [Mass/Vol] 13.0 g/dL 12.0-15.0 [facility] Monocytes/100 WBC (Bld) 7.7 % 0-10 [facility] Neutrophils (Bld) [#/Vol] 5.1 10*3/uL 2.0-7.7 [facility] Neutrophils/100 WBC (Bld) 72.2 % 47-70 [facility] Potassium [Moles/Vol] 3.7 mmol/L 3.5-5.1 [facility] Sodium [Moles/Vol] 137 mmol/L 136-[address] [facility] WBC (Bld) [#/Vol] 7.0 10*3/uL 4.4-11.[address] [facility] Determination of erythrocyte mean corpuscular volume (MCV)Ordered By: Benjamín Stanford on 09-16-2023 MCV (RBC) [Entitic vol] 88.9 fL 81-99 [facility] Erythrocyte distribution wid th ratioOrdered By: Benjamín Stanford on 09-16-2023 Erythrocyte distribution width (RBC) [Ratio] 12.5 % 11.6-14.6 [facility] Erythrocyte distribution wid th standard deviationOrdered By: Benjamín Stanford on 09-16-2023 Erythrocyte distribution width (RBC) [Entitic vol] 40.3 fL 35.1-43.9 [facility] Hematocrit Auto (Bld) [Volum e fraction]Ordered By: Benjamín Stanford on 09-16-2023 Hematocrit (Bld) [Volume fraction] 40.7 % 37-47 [facility] Immature granulocytes/100 WB C Auto (Bld)Ordered By: Benjamín Stanford on 09-16-2023 Immature granulocytes/100 WBC (Bld) 0.400 % 0.0-0.9 [facility] Comment on above: IG% - Immature Granu locytes (promyelocytes, myelocytes and metamyelocytes) > 1% indicates that a LEFT SHIFT is Present. Laboratory - Chemistry and C hemistry - challengeOrdered By: Benjamín Stanford on 09-16-2023 CO2 [Moles/Vol] 28.0 mmol/L 21.0-32.0 [facility] Urea nitrogen/Creatinine [Mass ratio] 21.6 mg/mg 10-20 [facility] Laboratory - Hematology and Cell countsOrdered By: Benjamín Stanford on 09-16-2023 MCH (RBC) [Entitic mass] 28.4 pg 27.0-32.0 [facility] MCHC (RBC) [Mass/Vol] 31.9 g/dL 32-36 [facility] Nucleated RBC/100 WBC (Bld) [Ratio] 0 % 0-5 [facility] Platelet mean volume (Bld) [Entitic vol] 12.2 fL 6.2-12.0 [facility] Platelets (Bld) [#/Vol] 230 10*3/uL 150-450 [facility] No Panel InformationOrdered By: Benjamín Stanford on 09-16-2023 Estimated Creatinine Clearance Calc 78.67 ml/min [facility] Estimated GFR (MDRD) Amer 75 mL/min >60 [facility] Comment on above: GFR Calc Estimated GFR (MDRD) Non-Af Amer 62 mL/min >60 [facility] Comment on above: Non- GFR Calc RBC Auto (Bld) [#/Vol]Ordere d By: Benjamín Stanford on 09-16-2023 RBC (Bld) [#/Vol] 4.58 10*6/uL 4.2-5.4 [facility] Serum or plasma calcium zora urement (mass/volume)Ordered By: Benjamín Stanford on 09-16-2023 Calcium [Mass/Vol] 9.2 mg/dL 8.5-10.[address] [facility] Serum or plasma creatinine m easurement (mass/volume)Ordered By: Benjamín Stanford on 09-16-2023 Creatinine [Mass/Vol] 0.93 mg/dL 0.55-1.02 [facility] Comment on above: The validity of the calculated GFR & GFRAA in patients over 70 years has not been determined. Clinical correlation is essential. Serum or plasma thyroid stim ulating hormone (TSH) measurement (units/volume)Ordered By: Benjamín Stanford on 09-16-2023 TSH Qn 2.95 uIU/mL 0.358-3.74 [facility] Serum or plasma urea nitroge n measurement (mass/volume)Ordered By: Benjamín Stanford on 09-16-2023 Urea nitrogen [Mass/Vol] 20 mg/dL 7-18 [facility] Thin prep Papanicolaou smear with manual screeningOrdered By: Benjamín Stanford on 09-16-2023 Thin prep Papanicolaou smear with manual screening 5 5-15 [facility] CBC W Auto Differential pane l (Bld)on 09-01-2023 Basophils (Bld) [#/Vol] 0.03 10*3/uL <0.11 k/uL [facility] Basophils/100 WBC (Bld) 0.4 % [facility] Differential cell count method Nom (Bld) Auto [facility] Eosinophils (Bld) [#/Vol] 0.26 10*3/uL <0.46 k/uL [facility] Eosinophils/100 WBC (Bld) 3.6 % [facility] Erythrocyte distribution width (RBC) [Ratio] 12.6 % 11.5 - 15.0 % [facility] Hematocrit (Bld) [Volume fraction] 39.8 % 36.0 - 46.0 % [facility] Hemoglobin (Bld) [Mass/Vol] 13.0 g/dL 11.5 - 15.5 g/dL [facility] Immature granulocytes (Bld) [#/Vol] <0.10 k/uL [facility] Immature granulocytes/100 WBC (Bld) 0.3 % [facility] Lymphocytes (Bld) [#/Vol] 0.48 10*3/uL Low 1.00 - 4.00 k/uL [facility] Lymphocytes/100 WBC (Bld) 6.6 % [facility] MCH (RBC) [Entitic mass] 29.3 pg 26. 0 - 34.0 pg [facility] MCHC (RBC) [Mass/Vol] 32.7 g/dL 30.5 - 36.0 g/dL [facility] MCV (RBC) [Entitic vol] 89.8 fL 80.0 - 100.0 fL [facility] Monocytes (Bld) [#/Vol] 0.46 10*3/uL <0.87 k/uL [facility] Monocytes/100 WBC (Bld) 6.3 % [facility] Neutrophils (Bld) [#/Vol] 6.05 10*3/uL 1.45 - 7.50 k/uL [facility] Neutrophils/100 WBC (Bld) 82.8 % [facility] Nucleated RBC (Bld) [#/Vol] <0.01 k/uL [facility] Nucleated RBC/100 WBC (Bld) [Ratio] 0.0 /100 WBC [facility] Platelet mean volume (Bld) [Entitic vol] 12.7 fL 9.0 - 12.7 fL [facility] Platelets (Bld) [#/Vol] 199 10*3/uL 150 - 400 k/uL [facility] RBC (Bld) [#/Vol] 4.43 10*6/uL 3.90 - 5.2 0 m/uL [facility] WBC (Bld) [#/Vol] 7.30 10*3/uL 3.70 - 11.00 k/uL [facility] No Panel Informationon 06-23 [facility] SPIROMETRY BASELINE ONLYon 1 08-24-2022 [id number]% PRE (L/S) 0.93 L/S [facility] FEV1 PRE (L) 1.64 L [facility] FEV1/FVC PRE (%) 67 % [facility] FVC PRE (L) 2.47 L [facility] PEF PRE (L/S) 5.38 L/S [facility] Absolute lymphocyte countOrd ered By: Jesus Kessler on 05-28-2023 Lymphocytes Auto (Unsp spec) [#/Vol] 1.01 10*3/uL 0.83-4.51 [facility] Basophil percentageOrdered B y: Jesus Kessler on 05-28-2023 Basophils/100 WBC (Bld) 0.5 % 0-1 [facility] Chloride [Moles/Vol] 106 mmol/L 98-107 [facility] Eosinophils/100 WBC (Bld) 4.4 % 0-5 [facility] Glucose [Mass/Vol] 170 mg/dL 74-[address] [facility] Comment on above: Fasting Glucose resu lt greater than or equal to 126 mg/dL suggests DIABETES MELLITUS per A.D.A. criteria. Neutrophils (Bld) [#/Vol] 4.8 10*3/uL 2.0-7.7 [facility] Neutrophils/100 WBC (Bld) 72.7 % 47-70 [facility] Potassium [Moles/Vol] 4.3 mmol/L 3.5-5.1 [facility] Sodium [Moles/Vol] 138 mmol/L 136-[address] [facility] WBC (Bld) [#/Vol] 6.5 10*3/uL 4.4-11.[address] [facility] Blood erythrocytes count (nu mber/volume)Ordered By: Jesus Kessler on 05-28-2023 RBC (Bld) [#/Vol] 4.29 10*6/uL 4.2-5.4 [facility] Blood hemoglobin measurement (mass/volume)Ordered By: Jesus Kessler on 05-28-2023 Hemoglobin (Bld) [Mass/Vol] 12.7 g/dL 12.0-15.0 [facility] Blood lymphocytes/100 leukoc ytesOrdered By: Jesus Kessler on 05-28-2023 Lymphocytes/100 WBC (Bld) 15.4 % 19-41 [facility] Blood monocytes/100 leukocyt esOrdered By: Jesus Kessler on 05-28-2023 Monocytes/100 WBC (Bld) 7.0 % 0-10 [facility] Blood platelet mean volumeOr dered By: Jesus Kessler on 05-28-2023 Platelet mean volume (Bld) [Entitic vol] 11.6 fL 6.2-12.0 [facility] Determination of erythrocyte mean corpuscular volume (MCV)Ordered By: Jesus Kessler on 05-28-2023 MCV (RBC) [Entitic vol] 90.9 fL 81-99 [facility] Glucose Glucometer (BldC) [M ass/Vol]Ordered By: Jesus Kessler on 05-28-2023 Glucose [Mass/Vol] 168 mg/dL 74-[address] [facility] Comment on above: MANAGEMENT OF PATIEN T CARE PER NURSING PROTOCOL Hematocrit Auto (Bld) [Volum e fraction]Ordered By: Jesus Kessler on 05-28-2023 Hematocrit (Bld) [Volume fraction] 39.0 % 37-47 [facility] Laboratory - Chemistry and C hemistry - challengeOrdered By: Jesus Kessler on 05-28-2023 CO2 [Moles/Vol] 31.0 mmol/L 21.0-32.0 [facility] Urea nitrogen/Creatinine [Mass ratio] 20.5 mg/mg 10-20 [facility] Laboratory - Hematology and Cell countsOrdered By: Jesus Kessler on 05-28-2023 Erythrocyte distribution width (RBC) [Entitic vol] 41.7 fL 35.1-43.9 [facility] Erythrocyte distribution width (RBC) [Ratio] 12.9 % 11.6-14.6 [facility] Immature granulocytes/100 WBC (Bld) 0.000 % 0.0-0.9 [facility] Comment on above: IG% - Immature Granu locytes (promyelocytes, myelocytes and metamyelocytes) > 1% indicates that a LEFT SHIFT is Present. MCH (RBC) [Entitic mass] 29.6 pg 27.0-32.0 [facility] Nucleated RBC/100 WBC (Bld) [Ratio] 0 % 0-5 [facility] MCHC Auto (RBC) [Mass/Vol]Or dered By: Jesus Kessler on 05-28-2023 MCHC (RBC) [Mass/Vol] 32.6 g/dL 32-36 [facility] No Panel InformationOrdered By: Jesus Kessler on 05-28-2023 Troponin I High Sensitivity 9 pg/mL 3.0-54.0 [facility] Comment on above: Please Note: New Mariajose t Units and Gender Specific Reference Ranges. For more information see Policy Stat Procedure [facility] High Sensitivity Troponin (TNIH) and attachments. Estimated GFR (MDRD) Amer 61 mL/min >60 [facility] Comment on above: GFR Calc Estimated GFR (MDRD) Non-Af Amer 50 mL/min >60 [facility] Comment on above: Non- GFR Calc Platelets bldOrdered By: Munira Kessler on 05-28-2023 Platelets (Bld) [#/Vol] 198 10*3/uL 150-450 [facility] Serum or plasma calcium zora urement (mass/volume)Ordered By: Jesus Kessler on 05-28-2023 Calcium [Mass/Vol] 8.8 mg/dL 8.5-10.[address] [facility] Serum or plasma creatinine m easurement (mass/volume)Ordered By: Jesus Kessler on 05-28-2023 Creatinine [Mass/Vol] 1.12 mg/dL 0.55-1.02 [facility] Comment on above: The validity of the calculated GFR & GFRAA in patients over 70 years has not been determined. Clinical correlation is essential. Serum or plasma urea nitroge n measurement (mass/volume)Ordered By: Jesus Kessler on 05-28-2023 Urea nitrogen [Mass/Vol] 23 mg/dL 7-18 [facility] Thin prep Papanicolaou smear with manual screeningOrdered By: Jesus Kessler on 05-28-2023 Thin prep Papanicolaou smear with manual screening 1 5-15 [facility] Absolute lymphocyte countOrd ered By: Dr. Francis on 11-04-2022 Lymphocytes Auto (Unsp spec) [#/Vol] 1.20 10*3/uL 0.83-4.51 [facility] Basophil percentageOrdered B y: Dr. Francis on 11-04-2022 Basophils/100 WBC (Bld) 0.3 % 0-1 [facility] Chloride [Moles/Vol] 105 mmol/L 98-107 [facility] Eosinophils/100 WBC (Bld) 1.7 % 0-5 [facility] Glucose [Mass/Vol] 162 mg/dL 74-[address] [facility] Comment on above: Fasting Glucose resu lt greater than or equal to 126 mg/dL suggests DIABETES MELLITUS per A.D.A. criteria. Neutrophils (Bld) [#/Vol] 4.5 10*3/uL 2.0-7.7 [facility] Neutrophils/100 WBC (Bld) 71.4 % 47-70 [facility] Potassium [Moles/Vol] 3.6 mmol/L 3.5-5.1 [facility] Sodium [Moles/Vol] 138 mmol/L 136-[address] [facility] WBC (Bld) [#/Vol] 6.4 10*3/uL 4.4-11.[address] [facility] Blood erythrocytes count (nu mber/volume)Ordered By: Dr. Francis on 11-04-2022 RBC (Bld) [#/Vol] 4.19 10*6/uL 4.2-5.4 [facility] Blood hemoglobin measurement (mass/volume)Ordered By: Dr. Francis on 11-04-2022 Hemoglobin (Bld) [Mass/Vol] 12.6 g/dL 12.0-15.0 [facility] Blood lymphocytes/100 leukoc ytesOrdered By: Dr. Francis on 11-04-2022 Lymphocytes/100 WBC (Bld) 18.9 % 19-41 [facility] Blood monocytes/100 leukocyt esOrdered By: Dr. Francis on 11-04-2022 Monocytes/100 WBC (Bld) 7.5 % 0-10 [facility] Blood platelet mean volumeOr dered By: Dr. Francis on 11-04-2022 Platelet mean volume (Bld) [Entitic vol] 12.5 fL 6.2-12.0 [facility] Determination of erythrocyte mean corpuscular volume (MCV)Ordered By: Dr. Francis on 11-04-2022 MCV (RBC) [Entitic vol] 92.6 fL 81-99 [facility] Glucose Glucometer (BldC) [M ass/Vol]Ordered By: Dr. Francis on 11-04-2022 Glucose [Mass/Vol] 130 mg/dL 74-[address] [facility] Comment on above: MANAGEMENT OF PATIEN T CARE PER NURSING PROTOCOL Hematocrit Auto (Bld) [Volum e fraction]Ordered By: Dr. Francis on 11-04-2022 Hematocrit (Bld) [Volume fraction] 38.8 % 37-47 [facility] Laboratory - Chemistry and C hemistry - challengeOrdered By: Dr. Francis on 11-04-2022 CO2 [Moles/Vol] 28.0 mmol/L 21.0-32.0 [facility] Urea nitrogen/Creatinine [Mass ratio] 22.3 mg/mg 10-20 [facility] Laboratory - Hematology and Cell countsOrdered By: Dr. Francis on 11-04-2022 Erythrocyte distribution width (RBC) [Entitic vol] 42.7 fL 35.1-43.9 [facility] Erythrocyte distribution width (RBC) [Ratio] 12.6 % 11.6-14.6 [facility] Immature granulocytes/100 WBC (Bld) 0.200 % 0.0-0.9 [facility] Comment on above: IG% - Immature Granu locytes (promyelocytes, myelocytes and metamyelocytes) > 1% indicates that a LEFT SHIFT is Present. MCH (RBC) [Entitic mass] 30.1 pg 27.0-32.0 [facility] Nucleated RBC/100 WBC (Bld) [Ratio] 0 % 0-5 [facility] MCHC Auto (RBC) [Mass/Vol]Or dered By: Dr. Francis on 11-04-2022 MCHC (RBC) [Mass/Vol] 32.5 g/dL 32-36 [facility] No Panel InformationOrdered By: Dr. Francis on 11-04-2022 Troponin I High Sensitivity 11 pg/mL 3.0-54.0 [facility] Comment on above: Please Note: New Mariajose t Units and Gender Specific Reference Ranges. For more information see Policy Stat Procedure [facility] High Sensitivity Troponin (TNIH) and attachments. D-Dimer Quantitative (PE/DVT) 0.39 FEU/ug/m 0.27-0.49 [facility] Comment on above: NORMAL D-Dimer level (<0.50) indicates no DVT or PE. Estimated Creatinine Clearance Calc 57.92 ml/min [facility] Estimated GFR (MDRD) Amer 83 mL/min >60 [facility] Comment on above: GFR Calc Estimated GFR (MDRD) Non-Af Amer 69 mL/min >60 [facility] Comment on above: Non- GFR Calc Platelets bldOrdered By: Dr. Francis on 11-04-2022 Platelets (Bld) [#/Vol] 212 10*3/uL 150-450 [facility] Serum or plasma calcium zora urement (mass/volume)Ordered By: Dr. Francis on 11-04-2022 Calcium [Mass/Vol] 9.5 mg/dL 8.5-10.[address] [facility] Serum or plasma creatinine m easurement (mass/volume)Ordered By: Dr. Francis on 11-04-2022 Creatinine [Mass/Vol] 0.85 mg/dL 0.55-1.02 [facility] Comment on above: The validity of the calculated GFR & GFRAA in patients over 70 years has not been determined. Clinical correlation is essential. Serum or plasma urea nitroge n measurement (mass/volume)Ordered By: Dr. Francis on 11-04-2022 Urea nitrogen [Mass/Vol] 19 mg/dL 7-18 [facility] Thin prep Papanicolaou smear with manual screeningOrdered By: Dr. Francis on 11-04-2022 Thin prep Papanicolaou smear with manual screening 5 5-15 [facility] Absolute lymphocyte countOrd ered By: ED PROVIDER on 10-11-2022 Lymphocytes Auto (Unsp spec) [#/Vol] 0.98 10*3/uL 0.83-4.51 [facility] Basophil percentageOrdered B y: ED PROVIDER on 10-11-2022 Basophils/100 WBC (Bld) 0.3 % 0-1 [facility] Chloride [Moles/Vol] 104 mmol/L 98-107 [facility] Eosinophils/100 WBC (Bld) 1.0 % 0-5 [facility] Glucose [Mass/Vol] 202 mg/dL 74-[address] [facility] Comment on above: Glucose result great er than or equal to 200 mg/dLsuggests DIABETES MELLITUS per A.D.A. criteria. Neutrophils (Bld) [#/Vol] 5.7 10*3/uL 2.0-7.7 [facility] Neutrophils/100 WBC (Bld) 78.2 % 47-70 [facility] Potassium [Moles/Vol] 4.0 mmol/L 3.5-5.1 [facility] Sodium [Moles/Vol] 137 mmol/L 136-[address] [facility] WBC (Bld) [#/Vol] 7.2 10*3/uL 4.4-11.[address] [facility] Blood erythrocytes count (nu mber/volume)Ordered By: ED PROVIDER on 10-11-2022 RBC (Bld) [#/Vol] 4.17 10*6/uL 4.2-5.4 [facility] Blood hemoglobin measurement (mass/volume)Ordered By: ED PROVIDER on 10-11-2022 Hemoglobin (Bld) [Mass/Vol] 12.8 g/dL 12.0-15.0 [facility] Blood lymphocytes/100 leukoc ytesOrdered By: ED PROVIDER on 10-11-2022 Lymphocytes/100 WBC (Bld) 13.6 % 19-41 [facility] Blood monocytes/100 leukocyt esOrdered By: ED PROVIDER on 10-11-2022 Monocytes/100 WBC (Bld) 6.8 % 0-10 [facility] Blood platelet mean volumeOr dered By: ED PROVIDER on 10-11-2022 Platelet mean volume (Bld) [Entitic vol] 12.1 fL 6.2-12.0 [facility] Determination of erythrocyte mean corpuscular volume (MCV)Ordered By: ED PROVIDER on 10-11-2022 MCV (RBC) [Entitic vol] 92.8 fL 81-99 [facility] Hematocrit Auto (Bld) [Volum e fraction]Ordered By: ED PROVIDER on 10-11-2022 Hematocrit (Bld) [Volume fraction] 38.7 % 37-47 [facility] Laboratory - Chemistry and C hemistry - challengeOrdered By: ED PROVIDER on 10-11-2022 CO2 [Moles/Vol] 29.0 mmol/L 21.0-32.0 [facility] Urea nitrogen/Creatinine [Mass ratio] 20.6 mg/mg 10-20 [facility] - Hematology and Cell countsOrdered By: ED PROVIDER on 10-11-2022 Erythrocyte distribution width (RBC) [Entitic vol] 43.7 fL 35.1-43.9 [facility] Erythrocyte distribution width (RBC) [Ratio] 12.9 % 11.6-14.6 [facility] Immature granulocytes/100 WBC (Bld) 0.100 % 0.0-0.9 [facility] Comment on above: IG% - Immature Granu locytes (promyelocytes, myelocytes and metamyelocytes) > 1% indicates that a LEFT SHIFT is Present. MCH (RBC) [Entitic mass] 30.7 pg 27.0-32.0 [facility] Nucleated RBC/100 WBC (Bld) [Ratio] 0 % 0-5 [facility] MCHC Auto (RBC) [Mass/Vol]Or dered By: ED PROVIDER on 10-11-2022 MCHC (RBC) [Mass/Vol] 33.1 g/dL 32-36 [facility] No Panel InformationOrdered By: ED PROVIDER on 10-11-2022 Troponin I High Sensitivity 10 pg/mL 3.0-54.0 [facility] Comment on above: Please Note: New Mariajose t Units and Gender Specific Reference Ranges. For more information see Policy Stat Procedure [facility] High Sensitivity Troponin (TNIH) and attachments. Estimated Creatinine Clearance Calc 49.24 ml/min [facility] Estimated GFR (MDRD) Amer 93 mL/min >60 [facility] Comment on above: GFR Calc Estimated GFR (MDRD) Non-Af Amer 76 mL/min >60 [facility] Comment on above: Non- GFR Calc Platelets bldOrdered By: ED PROVIDER on 10-11-2022 Platelets (Bld) [#/Vol] 207 10*3/uL 150-450 [facility] Serum or plasma calcium zora urement (mass/volume)Ordered By: ED PROVIDER on 10-11-2022 Calcium [Mass/Vol] 9.1 mg/dL 8.5-10.[address] [facility] Serum or plasma creatinine m easurement (mass/volume)Ordered By: ED PROVIDER on 10-11-2022 Creatinine [Mass/Vol] 0.78 mg/dL 0.55-1.02 [facility] Comment on above: The validity of the calculated GFR & GFRAA in patients over 70 years has not been determined. Clinical correlation is essential. Serum or plasma urea nitroge n measurement (mass/volume)Ordered By: ED PROVIDER on 10-11-2022 Urea nitrogen [Mass/Vol] 16 mg/dL 7-18 [facility] Thin prep Papanicolaou smear with manual screeningOrdered By: ED PROVIDER on 10-11-2022 Thin prep Papanicolaou smear with manual screening 4 5-15 [facility] Absolute lymphocyte countOrd ered By: Dr. Juan on 10-01-2022 Lymphocytes Auto (Unsp spec) [#/Vol] 1.06 10*3/uL 0.83-4.51 [facility] Basophil percentageOrdered B y: Dr. Juan on 10-01-2022 Basophils/100 WBC (Bld) 0.4 % 0-1 [facility] Chloride [Moles/Vol] 106 mmol/L 98-107 [facility] Eosinophils/100 WBC (Bld) 1.4 % 0-5 [facility] Glucose [Mass/Vol] 177 mg/dL 74-[address] [facility] Comment on above: Fasting Glucose resu lt greater than or equal to 126 mg/dL suggests DIABETES MELLITUS per A.D.A. criteria. Neutrophils (Bld) [#/Vol] 4.1 10*3/uL 2.0-7.7 [facility] Neutrophils/100 WBC (Bld) 71.6 % 47-70 [facility] Potassium [Moles/Vol] 4.0 mmol/L 3.5-5.1 [facility] Sodium [Moles/Vol] 140 mmol/L 136-[address] [facility] WBC (Bld) [#/Vol] 5.7 10*3/uL 4.4-11.[address] [facility] Blood erythrocytes count (nu mber/volume)Ordered By: Dr. Juan on 10-01-2022 RBC (Bld) [#/Vol] 4.28 10*6/uL 4.2-5.4 [facility] Blood hemoglobin measurement (mass/volume)Ordered By: Dr. Juan on 10-01-2022 Hemoglobin (Bld) [Mass/Vol] 12.9 g/dL 12.0-15.0 [facility] Blood lymphocytes/100 leukoc ytesOrdered By: Dr. Juan on 10-01-2022 Lymphocytes/100 WBC (Bld) 18.8 % 19-41 [facility] Blood monocytes/100 leukocyt esOrdered By: Dr. Juan on 10-01-2022 Monocytes/100 WBC (Bld) 7.8 % 0-10 [facility] Blood platelet mean volumeOr dered By: Dr. Juan on 10-01-2022 Platelet mean volume (Bld) [Entitic vol] 12.0 fL 6.2-12.0 [facility] Determination of erythrocyte mean corpuscular volume (MCV)Ordered By: Dr. Juan on 10-01-2022 MCV (RBC) [Entitic vol] 95.1 fL 81-99 [facility] Hematocrit Auto (Bld) [Volum e fraction]Ordered By: Dr. Juan on 10-01-2022 Hematocrit (Bld) [Volume fraction] 40.7 % 37-47 [facility] Laboratory - Chemistry and C hemistry - challengeOrdered By: Dr. Juan on 10-01-2022 CO2 [Moles/Vol] 28.0 mmol/L 21.0-32.0 [facility] Urea nitrogen/Creatinine [Mass ratio] 25.3 mg/mg 10-20 [facility] Laboratory - Hematology and Cell countsOrdered By: Dr. Juan on 10-01-2022 Erythrocyte distribution width (RBC) [Entitic vol] 46.5 fL 35.1-43.9 [facility] Erythrocyte distribution width (RBC) [Ratio] 13.3 % 11.6-14.6 [facility] Immature granulocytes/100 WBC (Bld) 0.000 % 0.0-0.9 [facility] Comment on above: IG% - Immature Granu locytes (promyelocytes, myelocytes and metamyelocytes) > 1% indicates that a LEFT SHIFT is Present. MCH (RBC) [Entitic mass] 30.1 pg 27.0-32.0 [facility] Nucleated RBC/100 WBC (Bld) [Ratio] 0 % 0-5 [facility] MCHC Auto (RBC) [Mass/Vol]Or dered By: Dr. Juan on 10-01-2022 MCHC (RBC) [Mass/Vol] 31.7 g/dL 32-36 [facility] No Panel InformationOrdered By: Dr. Juan on 10-01-2022 Estimated Creatinine Clearance Calc 49.24 ml/min [facility] Estimated GFR (MDRD) Amer 91 mL/min >60 [facility] Comment on above: GFR Calc Estimated GFR (MDRD) Non-Af Amer 75 mL/min >60 [facility] Comment on above: Non- GFR Calc Troponin I High Sensitivity 9 pg/mL 3.0-54.0 [facility] Comment on above: Please Note: New Mariajose t Units and Gender Specific Reference Ranges. For more information see Policy Stat Procedure Dawson High Sensitivity Troponin (TNIH) and attachments. Platelets bldOrdered By: Dr. Juan on 10-01-2022 Platelets (Bld) [#/Vol] 201 10*3/uL 150-450 [facility] Serum or plasma calcium zora urement (mass/volume)Ordered By: Dr. Juan on 10-01-2022 Calcium [Mass/Vol] 9.4 mg/dL 8.5-10.[address] [facility] Serum or plasma creatinine m easurement (mass/volume)Ordered By: Dr. Juan on 10-01-2022 Creatinine [Mass/Vol] 0.79 mg/dL 0.55-1.02 [facility] Comment on above: The validity of the calculated GFR & GFRAA in patients over 70 years has not been determined. Clinical correlation is essential. Serum or plasma urea nitroge n measurement (mass/volume)Ordered By: Dr. Juan on 10-01-2022 Urea nitrogen [Mass/Vol] 20 mg/dL 7-18 [facility] Thin prep Papanicolaou smear with manual screeningOrdered By: Dr. Juan on 10-01-2022 Thin prep Papanicolaou smear with manual screening 6 5-15 [facility] Culture, urineOrdered By: Dr Altaf Kessler on 08-05-2022 Bacteria identified Cx Nom (U) Enterococcus avium [facility] Bacteria identified Cx Nom (U) Enterococcus faecalis [facility] Bacteria identified Cx Nom (U) Staphylococcus lentus [facility] Absolute lymphocyte countOrd ered By: Dr. Herring on 08-02-2022 Lymphocytes Auto (Unsp spec) [#/Vol] 0.56 10*3/uL 0.83-4.51 [facility] Basophil percentageOrdered B y: Dr. Herring on 08-02-2022 Basophil percentage 2.4 mg/dL 2.5-4.9 [facility] Basophils/100 WBC (Bld) 0.2 % 0-1 [facility] Chloride [Moles/Vol] 101 mmol/L 98-107 [facility] Eosinophils/100 WBC (Bld) 0.4 % 0-5 [facility] Glucose [Mass/Vol] 217 mg/dL 74-[address] [facility] Comment on above: Glucose result great er than or equal to 200 mg/dLsuggests DIABETES MELLITUS per A.D.A. criteria. Neutrophils (Bld) [#/Vol] 4.0 10*3/uL 2.0-7.7 [facility] Neutrophils/100 WBC (Bld) 79.8 % 47-70 [facility] Potassium [Moles/Vol] 3.7 mmol/L 3.5-5.1 [facility] Sodium [Moles/Vol] 137 mmol/L 136-[address] [facility] WBC (Bld) [#/Vol] 5.1 10*3/uL 4.4-11.[address] [facility] Blood erythrocytes count (nu mber/volume)Ordered By: Dr. Herring on 08-02-2022 RBC (Bld) [#/Vol] 3.95 10*6/uL 4.2-5.4 [facility] Blood hemoglobin measurement (mass/volume)Ordered By: Dr. Herring on 08-02-2022 Hemoglobin (Bld) [Mass/Vol] 11.6 g/dL 12.0-15.0 [facility] Blood lymphocytes/100 leukoc ytesOrdered By: Dr. Herring on 08-02-2022 Lymphocytes/100 WBC (Bld) 11.1 % 19-41 [facility] Blood monocytes/100 leukocyt esOrdered By: Dr. Herring on 08-02-2022 Monocytes/100 WBC (Bld) 8.1 % 0-10 [facility] Blood platelet mean volumeOr dered By: Dr. Herring on 08-02-2022 Platelet mean volume (Bld) [Entitic vol] 12.6 fL 6.2-12.0 [facility] Determination of erythrocyte mean corpuscular volume (MCV)Ordered By: Dr. Herring on 08-02-2022 MCV (RBC) [Entitic vol] 92.2 fL 81-99 [facility] Glucose Glucometer (BldC) [M ass/Vol]Ordered By: Dr. Escalera on 08-02-2022 Glucose [Mass/Vol] 286 mg/dL 74-[address] [facility] Comment on above: MANAGEMENT OF PATIEN T CARE PER NURSING PROTOCOL Hematocrit Auto (Bld) [Volum e fraction]Ordered By: Dr. Herring on 08-02-2022 Hematocrit (Bld) [Volume fraction] 36.4 % 37-47 [facility] Laboratory - Chemistry and C hemistry - challengeOrdered By: Dr. Herring on 08-02-2022 CO2 [Moles/Vol] 26.0 mmol/L 21.0-32.0 [facility] Magnesium [Mass/Vol] 1.7 mg/dL 1.6-2.6 [facility] Urea nitrogen/Creatinine [Mass ratio] 13.5 mg/mg 10-20 [facility] Laboratory - Hematology and Cell countsOrdered By: Dr. Herring on 08-02-2022 Erythrocyte distribution width (RBC) [Entitic vol] 43.3 fL 35.1-43.9 [facility] Erythrocyte distribution width (RBC) [Ratio] 12.9 % 11.6-14.6 [facility] Immature granulocytes/100 WBC (Bld) 0.400 % 0.0-0.9 [facility] Comment on above: IG% - Immature Granu locytes (promyelocytes, myelocytes and metamyelocytes) > 1% indicates that a LEFT SHIFT is Present. MCH (RBC) [Entitic mass] 29.4 pg 27.0-32.0 [facility] Nucleated RBC/100 WBC (Bld) [Ratio] 0.6 % 0-5 [facility] MCHC Auto (RBC) [Mass/Vol]Or dered By: Dr. Herring on 08-02-2022 MCHC (RBC) [Mass/Vol] 31.9 g/dL 32-36 [facility] No Panel InformationOrdered By: Dr. Herring on 08-02-2022 Estimated Creatinine Clearance Calc 49.24 ml/min [facility] Estimated GFR (MDRD) Amer 111 mL/min >60 [facility] Comment on above: GFR Calc Estimated GFR (MDRD) Non-Af Amer 92 mL/min >60 [facility] Comment on above: Non- GFR Calc Platelets bldOrdered By: Dr. Herring on 08-02-2022 Platelets (Bld) [#/Vol] 158 10*3/uL 150-450 [facility] Serum or plasma calcium zora urement (mass/volume)Ordered By: Dr. Herring on 08-02-2022 Calcium [Mass/Vol] 8.0 mg/dL 8.5-10.[address] [facility] Serum or plasma creatinine m easurement (mass/volume)Ordered By: Dr. Herring on 08-02-2022 Creatinine [Mass/Vol] 0.66 mg/dL 0.55-1.02 [facility] Comment on above: The validity of the calculated GFR & GFRAA in patients over 70 years has not been determined. Clinical correlation is essential. Serum or plasma urea nitroge n measurement (mass/volume)Ordered By: Dr. Herring on 08-02-2022 Urea nitrogen [Mass/Vol] 9 mg/dL 7-18 [facility] Thin prep Papanicolaou smear with manual screeningOrdered By: Dr. Herring on 08-02-2022 Thin prep Papanicolaou smear with manual screening 10 5-15 [facility] Absolute lymphocyte counton 07-31-2022 Lymphocytes Auto (Unsp spec) [#/Vol] 0.65 10*3/uL 0.83-4.51 [facility] Work Phone: Amorphous sediment detection in urine sediment by light microscopyOrdered By: ED PROVIDER on 07-31-2022 Amorphous sediment LM Ql (Urine sed) 1+ URATE [facility] Basophil percentageOrdered B y: ED PROVIDER on 07-31-2022 Basophil percentage 5-10 SEEN /hpf 0-5 [facility] Bilirubin [Mass/Vol] 1.30 mg/dL 0.20-1.00 [facility] Comment on above: For patients on eltr ombopag therapy, use of Dimension Dawson TBIL is not recommended. Protein [Mass/Vol] 7.0 g/dL 6.4-8.[address] [facility] Basophil percentageOrdered B y: Dr. Kessler on 07-31-2022 Lactate [Moles/Vol] 1.5 mmol/L 0.4-2.0 [facility] Basophil percentageon 2022 Basophils/100 WBC (Bld) 0.1 % 0-1 [facility] Work Phone: Chloride [Moles/Vol] 100 mmol/L 98-107 [facility] Work Phone: Eosinophils/100 WBC (Bld) 0.0 % 0-5 [facility] Work Phone: Glucose [Mass/Vol] 113 mg/dL 74-[address] [facility] Work Phone: Comment on above: Fasting Glucose resu lt from 100 to 125 mg/dL suggests IMPAIRED HOMEOSTASIS per A.D.A. criteria. Neutrophils (Bld) [#/Vol] 6.5 10*3/uL 2.0-7.7 [facility] Work Phone: Neutrophils/100 WBC (Bld) 86.7 % 47-70 [facility] Work Phone: Potassium [Moles/Vol] 3.9 mmol/L 3.5-5.1 [facility] Work Phone: Sodium [Moles/Vol] 135 mmol/L 136-[address] [facility] Work Phone: WBC (Bld) [#/Vol] 7.5 10*3/uL 4.4-11.[address] [facility] Work Phone: Bilirubin Test strip Ql (U)O rdered By: ED PROVIDER on 07-31-2022 Bilirubin Ql (U) 1 mg/dL Negative [facility] Comment on above: COLOR OF URINE MAY A FFECT DIPSTICK RESULTS. Blood erythrocytes count (nu mber/volume)on 07-31-2022 RBC (Bld) [#/Vol] 4.69 10*6/uL 4.2-5.4 [facility] Work Phone: Blood hemoglobin measurement (mass/volume)on 07-31-2022 Hemoglobin (Bld) [Mass/Vol] 13.8 g/dL 12.0-15.0 [facility] Work Phone: Blood lymphocytes/100 leukoc yteson 07-31-2022 Lymphocytes/100 WBC (Bld) 8.7 % 19-41 [facility] Work Phone: Blood monocytes/100 leukocyt eson 07-31-2022 Monocytes/100 WBC (Bld) 4.4 % 0-10 [facility] Work Phone: Blood platelet mean volumeon 07-31-2022 Platelet mean volume (Bld) [Entitic vol] 12.3 fL 6.2-12.0 [facility] Work Phone: Determination of erythrocyte mean corpuscular volume (MCV)on 07-31-2022 MCV (RBC) [Entitic vol] 91.5 fL 81-99 [facility] Work Phone: Glucose Glucometer (BldC) [M ass/Vol]on 07-31-2022 Glucose [Mass/Vol] 121 mg/dL 74-[address] [facility] Work Phone: Comment on above: MANAGEMENT OF PATIEN T CARE PER NURSING PROTOCOL Hematocrit Auto (Bld) [Volum e fraction]on 07-31-2022 Hematocrit (Bld) [Volume fraction] 42.9 % 37-47 [facility] Work Phone: Influenza virus A and B and SARS-CoV-2 (COVID-19) Ag panel - Upper respiratory specimOrdered By: Dr. Kessler on 07-31-2022 SARS-CoV-2 & FLU Antigen (Rapid) SARS-CoV-2 (COVID 19) [facility] Ketones Test strip Ql (U)Ord ered By: ED PROVIDER on 07-31-2022 Ketones Ql (U) 15 mg/dl Negative [facility] Laboratory - Chemistry and C hemistry - challengeOrdered By: ED PROVIDER on 07-31-2022 ALP [Catalytic activity/Vol] 71 U/L 45-117 [facility] ALT [Catalytic activity/Vol] 26 U/L 13-56 [facility] Globulin (S) [Mass/Vol] 4.2 g/dL 2.2-4.2 [facility] Laboratory - Chemistry and C hemistry - challengeon 07-31-2022 CO2 [Moles/Vol] 29.0 mmol/L 21.0-32.0 [facility] Work Phone: Urea nitrogen/Creatinine [Mass ratio] 17.2 mg/mg 10-20 [facility] Work Phone: Laboratory - Hematology and Cell countson 07-31-2022 Erythrocyte distribution width (RBC) [Entitic vol] 41.3 fL 35.1-43.9 [facility] Work Phone: Erythrocyte distribution width (RBC) [Ratio] 12.7 % 11.6-14.6 [facility] Work Phone: Immature granulocytes/100 WBC (Bld) 0.100 % 0.0-0.9 [facility] Work Phone: Comment on above: IG% - Immature Granu locytes (promyelocytes, myelocytes and metamyelocytes) > 1% indicates that a LEFT SHIFT is Present. MCH (RBC) [Entitic mass] 29.4 pg 27.0-32.0 [facility] Work Phone: Nucleated RBC/100 WBC (Bld) [Ratio] 0 % 0-5 [facility] Work Phone: MCHC Auto (RBC) [Mass/Vol]on 07-31-2022 MCHC (RBC) [Mass/Vol] 32.2 g/dL 32-36 [facility] Work Phone: Mucus LM Ql (Urine sed)Order ed By: ED PROVIDER on 07-31-2022 Mucus Ql (Urine sed) 0 SEEN /hpf [facility] Nitrite Test strip Ql (U)Ord ered By: ED PROVIDER on 07-31-2022 Nitrite Ql (U) Negative Negative [facility] No Panel Informationon 07-31 Estimated Creatinine Clearance Calc 49.73 ml/min [facility] Work Phone: Estimated GFR (MDRD) Amer 70 mL/min >60 [facility] Work Phone: Comment on above: GFR Calc Estimated GFR (MDRD) Non-Af Amer 58 mL/min >60 [facility] Work Phone: Comment on above: Non- GFR Calc Platelets bldon 07-31-2022 Platelets (Bld) [#/Vol] 187 10*3/uL 150-450 [facility] Work Phone: Protein Test strip Ql (U)Ord ered By: ED PROVIDER on 07-31-2022 Protein Ql (U) 15 mg/dl Negative [facility] Serum or plasma albumin zora urement (mass/volume)Ordered By: ED PROVIDER on 07-31-2022 Albumin [Mass/Vol] 2.8 g/dL 3.2-5.[address] [facility] Serum or plasma albumin/glob ulin mass ratioOrdered By: ED PROVIDER on 07-31-2022 Albumin/Globulin [Mass ratio] 0.7 {ratio} 0.9-2.4 [facility] Serum or plasma calcium zora urement (mass/volume)on 07-31-2022 Calcium [Mass/Vol] 8.5 mg/dL 8.5-10.[address] [facility] Work Phone: Serum or plasma creatinine m easurement (mass/volume)on 07-31-2022 Creatinine [Mass/Vol] 0.99 mg/dL 0.55-1.02 [facility] Work Phone: Comment on above: The validity of the calculated GFR & GFRAA in patients over 70 years has not been determined. Clinical correlation is essential. Serum or plasma urea nitroge n measurement (mass/volume)on 07-31-2022 Urea nitrogen [Mass/Vol] 17 mg/dL 7-18 [facility] Work Phone: Squamous epithelial cells de tection in urine sediment by light microscopyOrdered By: ED PROVIDER on 07-31-2022 Epithelial cells.squamous LM Ql (Urine sed) 0-5 SEEN /hpf 5-10 [facility] Thin prep Papanicolaou smear with manual screeningOrdered By: ED PROVIDER on 07-31-2022 Thin prep Papanicolaou smear with manual screening 24 U/L 15-37 [facility] Thin prep Papanicolaou smear with manual screeningon 07-31-2022 Thin prep Papanicolaou smear with manual screening 6 5-15 [facility] Work Phone: Urine blood detectionOrdered By: ED PROVIDER on 07-31-2022 RBC Ql (U) Negative Negative [facility] RBC Ql (U) 0 SEEN /hpf 0-5 [facility] Urine clarityOrdered By: ED PROVIDER on 07-31-2022 Clarity (U) Sl. Cloudy Clear [facility] Urine color determinationOrd ered By: ED PROVIDER on 07-31-2022 Color (U) Yellow Yellow [facility] Urine glucose detectionOrder ed By: ED PROVIDER on 07-31-2022 Glucose Ql (U) Normal mg/dl Normal [facility] Urine leukocyte esterase det ection by dipstickOrdered By: ED PROVIDER on 07-31-2022 Leukocyte esterase Test strip Ql (U) 100 /ul Negative [facility] Urine pHOrdered By: ED PROVI KAYE on 07-31-2022 pH (U) 6.0 [pH] 5.0 - 8.0 [facility] Urine sediment bacteria coun t by microscopy (number/high power field)Ordered By: ED PROVIDER on 07-31-2022 Bacteria LM.HPF (Urine sed) [#/Area] 0 /[HPF] None Seen [facility] Urine specific gravity measu rementOrdered By: ED PROVIDER on 07-31-2022 Specific gravity (U) [Rel density] 1.015 1.002-1.030 [facility] Urobilinogen Auto test strip Ql (U)Ordered By: ED PROVIDER on 07-31-2022 Urobilinogen Ql (U) 4 mg/dl Normal [facility] Absolute lymphocyte countOrd ered By: Dr. Garcia on 07-24-2022 Lymphocytes Auto (Unsp spec) [#/Vol] 0.75 10*3/uL 0.83-4.51 [facility] Basophil percentageOrdered B y: Dr. Garcia on 07-24-2022 Basophils/100 WBC (Bld) 0.1 % 0-1 [facility] Bilirubin [Mass/Vol] 0.60 mg/dL 0.20-1.00 [facility] Comment on above: For patients on eltr ombopag therapy, use of Dimension Dawson TBIL is not recommended. Chloride [Moles/Vol] 103 mmol/L 98-107 [facility] Eosinophils/100 WBC (Bld) 0.0 % 0-5 [facility] Glucose [Mass/Vol] 164 mg/dL 74-[address] [facility] Comment on above: Fasting Glucose resu lt greater than or equal to 126 mg/dL suggests DIABETES MELLITUS per A.D.A. criteria. Neutrophils (Bld) [#/Vol] 7.0 10*3/uL 2.0-7.7 [facility] Neutrophils/100 WBC (Bld) 83.8 % 47-70 [facility] Potassium [Moles/Vol] 3.6 mmol/L 3.5-5.1 [facility] Protein [Mass/Vol] 5.9 g/dL 6.4-8.[address] [facility] Sodium [Moles/Vol] 137 mmol/L 136-[address] [facility] WBC (Bld) [#/Vol] 8.3 10*3/uL 4.4-11.[address] [facility] Blood erythrocytes count (nu mber/volume)Ordered By: Dr. Garcia on 07-24-2022 RBC (Bld) [#/Vol] 4.26 10*6/uL 4.2-5.4 [facility] Blood hemoglobin measurement (mass/volume)Ordered By: Dr. Garcia on 07-24-2022 Hemoglobin (Bld) [Mass/Vol] 13.1 g/dL 12.0-15.0 [facility] Blood lymphocytes/100 leukoc ytesOrdered By: Dr. Garcia on 07-24-2022 Lymphocytes/100 WBC (Bld) 9.0 % 19-41 [facility] Blood monocytes/100 leukocyt esOrdered By: Dr. Garcia on 07-24-2022 Monocytes/100 WBC (Bld) 6.7 % 0-10 [facility] Blood platelet mean volumeOr dered By: Dr. Garcai on 07-24-2022 Platelet mean volume (Bld) [Entitic vol] 11.8 fL 6.2-12.0 [facility] Determination of erythrocyte mean corpuscular volume (MCV)Ordered By: Dr. Garcia on 07-24-2022 MCV (RBC) [Entitic vol] 94.6 fL 81-99 [facility] Glucose Glucometer (BldC) [M ass/Vol]Ordered By: Dr. Garcia on 07-24-2022 Glucose [Mass/Vol] 64 mg/dL 74-[address] [facility] Comment on above: MANAGEMENT OF PATIEN T CARE PER NURSING PROTOCOL Glucose Glucometer (BldC) [M ass/Vol]on 07-24-2022 Glucose [Mass/Vol] 135 mg/dL 74-[address] [facility] Work Phone: Comment on above: MANAGEMENT OF PATIEN T CARE PER NURSING PROTOCOL Hematocrit Auto (Bld) [Volum e fraction]Ordered By: Dr. Garcia on 07-24-2022 Hematocrit (Bld) [Volume fraction] 40.3 % 37-47 [facility] Laboratory - Chemistry and C hemistry - challengeOrdered By: Dr. Garcia on 07-24-2022 ALP [Catalytic activity/Vol] 63 U/L 45-117 [facility] ALT [Catalytic activity/Vol] 35 U/L 13-56 [facility] CO2 [Moles/Vol] 26.0 mmol/L 21.0-32.0 [facility] Globulin (S) [Mass/Vol] 3.8 g/dL 2.2-4.2 [facility] Urea nitrogen/Creatinine [Mass ratio] 23.8 mg/mg 10-20 [facility] Laboratory - Hematology and Cell countsOrdered By: Dr. Garcia on 07-24-2022 Erythrocyte distribution width (RBC) [Entitic vol] 44.2 fL 35.1-43.9 [facility] Erythrocyte distribution width (RBC) [Ratio] 12.8 % 11.6-14.6 [facility] Immature granulocytes/100 WBC (Bld) 0.400 % 0.0-0.9 [facility] Comment on above: IG% - Immature Granu locytes (promyelocytes, myelocytes and metamyelocytes) > 1% indicates that a LEFT SHIFT is Present. MCH (RBC) [Entitic mass] 30.8 pg 27.0-32.0 [facility] Nucleated RBC/100 WBC (Bld) [Ratio] 0 % 0-5 [facility] MCHC Auto (RBC) [Mass/Vol]Or dered By: Dr. Garcia on 07-24-2022 MCHC (RBC) [Mass/Vol] 32.5 g/dL 32-36 [facility] No Panel InformationOrdered By: Dr. Garcia on 07-24-2022 Estimated Creatinine Clearance Calc 59.54 ml/min [facility] Estimated GFR (MDRD) Amer 84 mL/min >60 [facility] Comment on above: GFR Calc Estimated GFR (MDRD) Non-Af Amer 70 mL/min >60 [facility] Comment on above: Non- GFR Calc Platelets bldOrdered By: Dr. Garcia on 07-24-2022 Platelets (Bld) [#/Vol] 243 10*3/uL 150-450 [facility] Serum or plasma albumin zora urement (mass/volume)Ordered By: Dr. Garcia on 07-24-2022 Albumin [Mass/Vol] 2.1 g/dL 3.2-5.[address] [facility] Serum or plasma albumin/glob ulin mass ratioOrdered By: Dr. Garcia on 07-24-2022 Albumin/Globulin [Mass ratio] 0.6 {ratio} 0.9-2.4 [facility] Serum or plasma calcium zora urement (mass/volume)Ordered By: Dr. Garcia on 07-24-2022 Calcium [Mass/Vol] 8.8 mg/dL 8.5-10.[address] [facility] Serum or plasma creatinine m easurement (mass/volume)Ordered By: Dr. Garcia on 07-24-2022 Creatinine [Mass/Vol] 0.84 mg/dL 0.55-1.02 [facility] Comment on above: The validity of the calculated GFR & GFRAA in patients over 70 years has not been determined. Clinical correlation is essential. Serum or plasma urea nitroge n measurement (mass/volume)Ordered By: Dr. Garcia on 07-24-2022 Urea nitrogen [Mass/Vol] 20 mg/dL 7-18 [facility] Thin prep Papanicolaou smear with manual screeningOrdered By: Dr. Garcia on 07-24-2022 Thin prep Papanicolaou smear with manual screening 26 U/L 15-37 [facility] Thin prep Papanicolaou smear with manual screening 8 5-15 [facility] Blood manual differential co mment interpretation (narrative result)Ordered By: Dr. Garcia on 07-23-2022 Manual differential comment Ferny (Bld) [Interp] SCANNED [facility] Comment on above: LYMPHOPENIA NOTED Laboratory - Microbiology an d Antimicrobial susceptibilityOrdered By: Dr. Leong on 07-23-2022 Bacteria identified Cx Nom (Bld) No growth in 5 days. [facility] Bacteria identified Cx Nom (Bld) No growth in 5 days. [facility] Laboratory - Microbiology an d Antimicrobial susceptibilityOrdered By: Dr. Garcia on 07-22-2022 SARS-CoV-2 (COVID-19) RNA RAYMOND+probe Ql (Unsp spec) Detected Not Detect [facility] Comment on above: Normal Reference Ran ge: Not DetectedMethod:(RT-PCR) real-time reverse transcriptase PCRLuminex Amerityre Instrument*The Food and Drug Administration (FDA) has issued an Emergency Use Authorization (EAU) for the Amerityre SARS-CoV-2 Assay for the rapid detection of [...] 07-22-2022 SARS-CoV-2 Antigen (Rapid) SARS-CoV-2 (COVID 19) [facility] Assessment of wrist artery p atency prior to arterial punctureOrdered By: Dr. Leong on 07-18-2022 Arterial patency Wrist artery --pre arterial puncture Positive [facility] Base excessOrdered By: Dr. Juanita pelaez on 07-18-2022 Base excess Calc (BldV) [Moles/Vol] 8 mmol/L -2-2 [facility] Basophil percentageOrdered B y: Dr. Leong on 07-18-2022 Basophil percentage 32.4 mmol/L 22-26 [facility] Basophils/100 WBC (Bld) 94 % 95-99 [facility] CO2 (BldA) [Partial pressure ]Ordered By: Dr. Leong on 07-18-2022 CO2 (Bld) [Partial pressure] 47.5 mm[Hg] 35-45 [facility] No Panel InformationOrdered By: Dr. Sandoval on 07-18-2022 Methicillin-Resist S.aureus DNA PCR Negative Negative [facility] Streptococcus pneumoniae Antigen (M [facility] No Panel InformationOrdered By: Dr. Leong on 07-18-2022 Blood Gas Liter Flow 4.0 /min [facility] Blood Gas Sample Site R Radial [facility] Blood Gas Specimen Type ART [facility] Blood Gas Total CO2 34 mmol/L [facility] Oxygen Delivery Device Cannula [facility] Oxygen (BldA) [Partial press ure]Ordered By: Dr. Leong on 07-18-2022 Oxygen (Bld) [Partial pressure] 68 mmHG 75-100 [facility] pH measurementOrdered By: Dr Altaf Leong on 07-18-2022 pH (Unsp spec) 7.44 [pH] 7.35-7.45 [facility] Basophil percentageOrdered B y: Dr. Leong on 07-17-2022 Lactate [Moles/Vol] 1.2 mmol/L 0.4-2.0 [facility] Culture, urineOrdered By: Dr Altaf Torres on 07-15-2022 Bacteria identified Cx Nom (U) Positive [facility] Glucose Glucometer (dC) [M ass/Vol]Ordered By: Dr. Escobedo on 07-14-2022 Glucose [Mass/Vol] 185 mg/dL 74-[address] [facility] Comment on above: MANAGEMENT OF PATIEN T CARE PER NURSING PROTOCOL Basophil percentageOrdered B y: Dr. Torres on 07-13-2022 Basophil percentage 5-10 SEEN /hpf 0-5 [facility] Bilirubin Test strip Ql (U)O rdered By: Dr. Torres on 07-13-2022 Bilirubin Ql (U) Negative Negative [facility] Ketones Test strip Ql (U)Ord ered By: Dr. Torres on 07-13-2022 Ketones Ql (U) 5 mg/dl Negative [facility] Microbial respiratory cultur eOrdered By: Dr. Herring on 07-13-2022 Bacteria identified Respiratory culture Nom (Unsp spec) or Staphylococcus aureus isolated. [facility] Mucus LM Ql (Urine sed)Order ed By: Dr. Torres on 07-13-2022 Mucus Ql (Urine sed) 0 SEEN /hpf [facility] Nitrite Test strip Ql (U)Ord ered By: Dr. Torres on 07-13-2022 Nitrite Ql (U) Negative Negative [facility] Protein Test strip Ql (U)Ord ered By: Dr. Torres on 07-13-2022 Protein Ql (U) 15 mg/dl Negative [facility] Squamous epithelial cells de tection in urine sediment by light microscopyOrdered By: Dr. Torres on 07-13-2022 Epithelial cells.squamous LM Ql (Urine sed) 0 SEEN /hpf 5-10 [facility] Urine blood detectionOrdered By: Dr. Torres on 07-13-2022 RBC Ql (U) Negative Negative [facility] RBC Ql (U) 0 SEEN /hpf 0-5 [facility] Urine clarityOrdered By: Dr. Torres on 07-13-2022 Clarity (U) Clear Clear [facility] Urine color determinationOrd ered By: Dr. Torres on 07-13-2022 Color (U) Yellow Yellow [facility] Urine glucose detectionOrder ed By: Dr. Torres on 07-13-2022 Glucose Ql (U) Normal mg/dl Normal [facility] Urine leukocyte esterase det ection by dipstickOrdered By: Dr. Torres on 07-13-2022 Leukocyte esterase Test strip Ql (U) 100 /ul Negative [facility] Urine pHOrdered By: Dr. Fela rabago on 07-13-2022 pH (U) 6.0 [pH] 5.0 - 8.0 [facility] Urine sediment bacteria coun t by microscopy (number/high power field)Ordered By: Dr. Torres on 07-13-2022 Bacteria LM.HPF (Urine sed) [#/Area] 1 /[HPF] None Seen [facility] Urine specific gravity measu rementOrdered By: Dr. Torres on 07-13-2022 Specific gravity (U) [Rel density] 1.020 1.002-1.030 [facility] Urobilinogen Auto test strip Ql (U)Ordered By: Dr. Torres on 07-13-2022 Urobilinogen Ql (U) Normal mg/dl Normal [facility] Gram stain for investigation of transfusion reactionOrdered By: Dr. Herring on 07-12-2022 Microscopic observation Gram stain Nom (Unsp spec) [facility] Absolute lymphocyte countOrd ered By: Dr. Herring on 07-11-2022 Lymphocytes Auto (Unsp spec) [#/Vol] 0.31 10*3/uL 0.83-4.51 [facility] Basophil percentageOrdered B y: Dr. Herring on 07-11-2022 Basophil percentage 2.7 mg/dL 2.5-4.9 [facility] Basophils/100 WBC (Bld) 0.0 % 0-1 [facility] Chloride [Moles/Vol] 103 mmol/L 98-107 [facility] Eosinophils/100 WBC (Bld) 0.0 % 0-5 [facility] Glucose [Mass/Vol] 418 mg/dL 74-[address] [facility] Comment on above: Glucose result great er than or equal to 200 mg/dLsuggests DIABETES MELLITUS per A.D.A. criteria. Neutrophils (Bld) [#/Vol] 3.6 10*3/uL 2.0-7.7 [facility] Neutrophils/100 WBC (Bld) 88.0 % 47-70 [facility] Potassium [Moles/Vol] 3.9 mmol/L 3.5-5.1 [facility] Sodium [Moles/Vol] 136 mmol/L 136-[address] [facility] WBC (Bld) [#/Vol] 4.1 10*3/uL 4.4-11.[address] [facility] Blood erythrocytes count (nu mber/volume)Ordered By: Dr. Herring on 07-11-2022 RBC (Bld) [#/Vol] 4.11 10*6/uL 4.2-5.4 [facility] Blood hemoglobin measurement (mass/volume)Ordered By: Dr. Herring on 07-11-2022 Hemoglobin (Bld) [Mass/Vol] 12.0 g/dL 12.0-15.0 [facility] Blood lymphocytes/100 leukoc ytesOrdered By: Dr. Herring on 07-11-2022 Lymphocytes/100 WBC (Bld) 7.6 % 19-41 [facility] Blood monocytes/100 leukocyt esOrdered By: Dr. Herring on 07-11-2022 Monocytes/100 WBC (Bld) 4.2 % 0-10 [facility] Blood platelet mean volumeOr dered By: Dr. Herring on 07-11-2022 Platelet mean volume (Bld) [Entitic vol] 11.7 fL 6.2-12.0 [facility] Determination of erythrocyte mean corpuscular volume (MCV)Ordered By: Dr. Herring on 07-11-2022 MCV (RBC) [Entitic vol] 92.7 fL 81-99 [facility] Hematocrit Auto (Bld) [Volum e fraction]Ordered By: Dr. Herring on 07-11-2022 Hematocrit (Bld) [Volume fraction] 38.1 % 37-47 [facility] Laboratory - Chemistry and C hemistry - challengeOrdered By: Dr. Herring on 07-11-2022 CO2 [Moles/Vol] 26.0 mmol/L 21.0-32.0 [facility] Magnesium [Mass/Vol] 2.1 mg/dL 1.6-2.6 [facility] Urea nitrogen/Creatinine [Mass ratio] 27.0 mg/mg 10-20 [facility] Laboratory - Hematology and Cell countsOrdered By: Dr. Herring on 07-11-2022 Erythrocyte distribution width (RBC) [Entitic vol] 43.5 fL 35.1-43.9 [facility] Erythrocyte distribution width (RBC) [Ratio] 12.8 % 11.6-14.6 [facility] Immature granulocytes/100 WBC (Bld) 0.200 % 0.0-0.9 [facility] Comment on above: IG% - Immature Granu locytes (promyelocytes, myelocytes and metamyelocytes) > 1% indicates that a LEFT SHIFT is Present. MCH (RBC) [Entitic mass] 29.2 pg 27.0-32.0 [facility] Nucleated RBC/100 WBC (Bld) [Ratio] 0 % 0-5 [facility] MCHC Auto (RBC) [Mass/Vol]Or dered By: Dr. Herring on 07-11-2022 MCHC (RBC) [Mass/Vol] 31.5 g/dL 32-36 [facility] No Panel InformationOrdered By: Dr. Herring on 07-11-2022 Estimated Creatinine Clearance Calc 50.02 ml/min [facility] Estimated GFR (MDRD) Amer 69 mL/min >60 [facility] Comment on above: GFR Calc Estimated GFR (MDRD) Non-Af Amer 57 mL/min >60 [facility] Comment on above: Non- GFR Calc Platelets bldOrdered By: Dr. Herring on 07-11-2022 Platelets (Bld) [#/Vol] 177 10*3/uL 150-450 [facility] Review by pathologistOrdered By: Dr. Herring on 07-11-2022 Pathologist review Ferny (Unsp spec) [Interp] Reviewed [facility] Comment on above: Previous reported re sult: Trixie byrne Edited by: SHELLY on 07/13/22:1353 AMENDED REPORT 07/13/22 1353 PATH REV previously reported as: Trixie byrne Serum or plasma calcium zora urement (mass/volume)Ordered By: Dr. Herring on 07-11-2022 Calcium [Mass/Vol] 8.4 mg/dL 8.5-10.[address] [facility] Serum or plasma creatinine m easurement (mass/volume)Ordered By: Dr. Herring on 07-11-2022 Creatinine [Mass/Vol] 1.00 mg/dL 0.55-1.02 [facility] Comment on above: The validity of the calculated GFR & GFRAA in patients over 70 years has not been determined. Clinical correlation is essential. Serum or plasma urea nitroge n measurement (mass/volume)Ordered By: Dr. Herring on 07-11-2022 Urea nitrogen [Mass/Vol] 27 mg/dL 7-18 [facility] Thin prep Papanicolaou smear with manual screeningOrdered By: Dr. Herring on 07-11-2022 Thin prep Papanicolaou smear with manual screening 7 -15 [facility] Whole blood hemoglobin A1c/t otal hemoglobin ratio (mass fraction)Ordered By: Dr. Torres on 07-11-2022 HbA1c (Bld) [Mass fraction] 7.6 % 3.8-5.6 [facility] Comment on above: Normal < 5.7 % Predi abetic 5.7 - 6.4 % Diabetic >or= 6.5 % Please note range changes. Absolute lymphocyte counton 07-10-2022 Lymphocytes Auto (Unsp spec) [#/Vol] 0.35 10*3/uL 0.83-4.51 [facility] Work Phone: Basophil percentageon 2021 Basophils/100 WBC (Bld) 0.4 % 0-1 [facility] Work Phone: Chloride [Moles/Vol] 101 mmol/L 98-107 [facility] Work Phone: Eosinophils/100 WBC (Bld) 0.7 % 0-5 [facility] Work Phone: Glucose [Mass/Vol] 253 mg/dL 74-[address] [facility] Work Phone: Comment on above: Glucose result great er than or equal to 200 mg/dLsuggests DIABETES MELLITUS per A.D.A. criteria. Neutrophils (Bld) [#/Vol] 4.6 10*3/uL 2.0-7.7 [facility] Work Phone: Neutrophils/100 WBC (Bld) 83.5 % 47-70 [facility] Work Phone: Potassium [Moles/Vol] 3.8 mmol/L 3.5-5.1 [facility] Work Phone: Sodium [Moles/Vol] 136 mmol/L 136-[address] [facility] Work Phone: WBC (Bld) [#/Vol] 5.5 10*3/uL 4.4-11.[address] [facility] Work Phone: Blood erythrocytes count (nu mber/volume)on 07-10-2022 RBC (Bld) [#/Vol] 4.74 10*6/uL 4.2-5.4 [facility] Work Phone: Blood hemoglobin measurement (mass/volume)on 07-10-2022 Hemoglobin (Bld) [Mass/Vol] 13.8 g/dL 12.0-15.0 [facility] Work Phone: [phone] Blood lymphocytes/100 leukoc yteson 07-10-2022 Lymphocytes/100 WBC (Bld) 6.3 % 19-41 [facility] Work Phone: Blood manual differential co mment interpretation (narrative result)Ordered By: ED PROVIDER on 07-10-2022 Manual differential comment Ferny (Bld) [Interp] SCANNED [facility] Blood monocytes/100 leukocyt eson 07-10-2022 Monocytes/100 WBC (Bld) 8.7 % 0-10 [facility] Work Phone: Blood platelet mean volumeon 07-10-2022 Platelet mean volume (Bld) [Entitic vol] 11.6 fL 6.2-12.0 [facility] Work Phone: Determination of erythrocyte mean corpuscular volume (MCV)on 07-10-2022 MCV (RBC) [Entitic vol] 91.6 fL 81-99 [facility] Work Phone: Hematocrit Auto (Bld) [Volum e fraction]on 07-10-2022 Hematocrit (Bld) [Volume fraction] 43.4 % 37-47 [facility] Work Phone: Laboratory - Chemistry and C hemistry - challengeon 07-10-2022 CO2 [Moles/Vol] 27.0 mmol/L 21.0-32.0 [facility] Work Phone: Urea nitrogen/Creatinine [Mass ratio] 22.1 mg/mg 10-20 [facility] Work Phone: Laboratory - Hematology and Cell countson 07-10-2022 Erythrocyte distribution width (RBC) [Entitic vol] 42.4 fL 35.1-43.9 [facility] Work Phone: Erythrocyte distribution width (RBC) [Ratio] 12.6 % 11.6-14.6 [facility] Work Phone: Immature granulocytes/100 WBC (Bld) 0.400 % 0.0-0.9 [facility] Work Phone: Comment on above: IG% - Immature Granu locytes (promyelocytes, myelocytes and metamyelocytes) > 1% indicates that a LEFT SHIFT is Present. MCH (RBC) [Entitic mass] 29.1 pg 27.0-32.0 [facility] Work Phone: Nucleated RBC/100 WBC (Bld) [Ratio] 0 % 0-5 [facility] Work Phone: Laboratory - Microbiology an d Antimicrobial susceptibilityOrdered By: Dr. Herring on 07-10-2022 SARS-CoV-2 (COVID-19) RNA RAYMOND+probe Ql (Unsp spec) Not detected Not Detect [facility] Comment on above: Normal Reference Ran ge: Not DetectedMethod:(RT-PCR) real-time reverse transcriptase PCRLuminex Amerityre Instrument*The Food and Drug Administration (FDA) has [...] 07-10-2022 MCHC (RBC) [Mass/Vol] 31.8 g/dL 32-36 [facility] Work Phone: No Panel InformationOrdered By: Dr. Harvey on 07-10-2022 D-Dimer Quantitative (PE/DVT) 0.52 FEU/ug/m 0.27-0.49 [facility] Comment on above: D-Dimer ELEVATED (>0 .49): Additional studies and clinicalassessments are indicated to conclude diagnosis of:Deep Vein Thrombosis (DVT) or Pulmonary Embolism (PE)CRITICAL VALUE VERIFIED. CALLED TO RFANCHESCA MORRIS07/10/22 [id number] Hannah Beasley.RESULTS READ BACK BY SAME . Troponin I High Sensitivity 12 pg/mL 3.0-54.0 [facility] Comment on above: Please Note: New Mariajose t Units and Gender Specific Reference Ranges. For more information see Policy Stat Procedure Dawson High Sensitivity Troponin (TNIH) and attachments. No Panel Informationon 07-10 Estimated Creatinine Clearance Calc 58.16 ml/min [facility] Work Phone: Estimated GFR (MDRD) Amer 82 mL/min >60 [facility] Work Phone: Comment on above: GFR Calc Estimated GFR (MDRD) Non-Af Amer 68 mL/min >60 [facility] Work Phone: Comment on above: Non- GFR Calc Platelets bldon 07-10-2022 Platelets (Bld) [#/Vol] 193 10*3/uL 150-450 [facility] Work Phone: Serum or plasma calcium zora urement (mass/volume)on 07-10-2022 Calcium [Mass/Vol] 8.8 mg/dL 8.5-10.[address] [facility] Work Phone: Serum or plasma creatinine m easurement (mass/volume)on 07-10-2022 Creatinine [Mass/Vol] 0.86 mg/dL 0.55-1.02 [facility] Work Phone: Comment on above: The validity of the calculated GFR & GFRAA in patients over 70 years has not been determined. Clinical correlation is essential. Serum or plasma urea nitroge n measurement (mass/volume)on 07-10-2022 Urea nitrogen [Mass/Vol] 19 mg/dL 7-18 [facility] Work Phone: Thin prep Papanicolaou smear with manual screeningon 07-10-2022 Thin prep Papanicolaou smear with manual screening 8 5-15 [facility] Work Phone: Absolute lymphocyte counton 02-11-2022 Lymphocytes Auto (Unsp spec) [#/Vol] 0.98 10*3/uL 0.83-4.51 [facility] Work Phone: Basophil percentageon 07-28- 2022 Basophils/100 WBC (Bld) 0.4 % 0-1 [facility] Work Phone: Chloride [Moles/Vol] 104 mmol/L 98-107 [facility] Work Phone: Eosinophils/100 WBC (Bld) 4.0 % 0-5 [facility] Work Phone: Glucose [Mass/Vol] 144 mg/dL 74-[address] [facility] Work Phone: [phone] Comment on above: Fasting Glucose resu lt greater than or equal to 126 mg/dL suggests DIABETES MELLITUS per A.D.A. criteria. Neutrophils (Bld) [#/Vol] 5.3 10*3/uL 2.0-7.7 [facility] Work Phone: Neutrophils/100 WBC (Bld) 75.1 % 47-70 [facility] Work Phone: Potassium [Moles/Vol] 4.1 mmol/L 3.5-5.1 [facility] Work Phone: [phone] Sodium [Moles/Vol] 138 mmol/L 136-[address] [facility] Work Phone: WBC (Bld) [#/Vol] 7.1 10*3/uL 4.4-11.[address] [facility] Work Phone: Blood erythrocytes count (nu mber/volume)on 02-11-2022 RBC (Bld) [#/Vol] 4.54 10*6/uL 4.2-5.4 [facility] Work Phone: Blood hemoglobin measurement (mass/volume)on 02-11-2022 Hemoglobin (Bld) [Mass/Vol] 13.4 g/dL 12.0-15.0 [facility] Work Phone: [phone] Blood lymphocytes/100 leukoc yteson 02-11-2022 Lymphocytes/100 WBC (Bld) 13.9 % 19-41 [facility] Work Phone: Blood monocytes/100 leukocyt eson 02-11-2022 Monocytes/100 WBC (Bld) 6.5 % 0-10 [facility] Work Phone: Blood platelet mean volumeon 02-11-2022 Platelet mean volume (Bld) [Entitic vol] 11.6 fL 6.2-12.0 [facility] Work Phone: Determination of erythrocyte mean corpuscular volume (MCV)on 02-11-2022 MCV (RBC) [Entitic vol] 88.8 fL 81-99 [facility] Work Phone: Hematocrit Auto (Bld) [Volum e fraction]on 02-11-2022 Hematocrit (Bld) [Volume fraction] 40.3 % 37-47 [facility] Work Phone: Laboratory - Chemistry and C hemistry - challengeon 02-11-2022 CO2 [Moles/Vol] 30.0 mmol/L 21.0-32.0 [facility] Work Phone: Urea nitrogen/Creatinine [Mass ratio] 14.4 mg/mg 10-20 [facility] Work Phone: Laboratory - Hematology and Cell countson 02-11-2022 Erythrocyte distribution width (RBC) [Entitic vol] 41.5 fL 35.1-43.9 [facility] Work Phone: Erythrocyte distribution width (RBC) [Ratio] 12.7 % 11.6-14.6 [facility] Work Phone: Immature granulocytes/100 WBC (Bld) 0.100 % 0.0-0.9 [facility] Work Phone: Comment on above: IG% - Immature Granu locytes (promyelocytes, myelocytes and metamyelocytes) > 1% indicates that a LEFT SHIFT is Present. MCH (RBC) [Entitic mass] 29.5 pg 27.0-32.0 [facility] Work Phone: Nucleated RBC/100 WBC (Bld) [Ratio] 0 % 0-5 [facility] Work Phone: MCHC Auto (RBC) [Mass/Vol]on 02-11-2022 MCHC (RBC) [Mass/Vol] 33.3 g/dL 32-36 [facility] Work Phone: No Panel Informationon 02-11 Estimated Creatinine Clearance Calc 48.09 ml/min [facility] Work Phone: Estimated GFR (MDRD) Amer 66 mL/min >60 [facility] Work Phone: Comment on above: GFR Calc Estimated GFR (MDRD) Non-Af Amer 55 mL/min >60 [facility] Work Phone: Comment on above: Non- GFR Calc Thyroid Stimulating Hormone (TSH) 2.08 uIU/mL 0.358-3.74 [facility] Work Phone: Platelets bldon 02-11-2022 Platelets (Bld) [#/Vol] 187 10*3/uL 150-450 [facility] Work Phone: Serum or plasma calcium zora urement (mass/volume)on 02-11-2022 Calcium [Mass/Vol] 9.2 mg/dL 8.5-10.[address] [facility] Work Phone: Serum or plasma creatinine m easurement (mass/volume)on 02-11-2022 Creatinine [Mass/Vol] 1.04 mg/dL 0.55-1.02 [facility] Work Phone: Comment on above: The validity of the calculated GFR & GFRAA in patients over 70 years has not been determined. Clinical correlation is essential. Serum or plasma urea nitroge n measurement (mass/volume)on 02-11-2022 Urea nitrogen [Mass/Vol] 15 mg/dL 7-18 [facility] Work Phone: Thin prep Papanicolaou smear with manual screeningon 02-11-2022 Thin prep Papanicolaou smear with manual screening 4 5-15 [facility] Work Phone: XR HUMERUS 2V AP/LAT RIGHTon 12-17-2021 [facility] XR Humerus - right AP and La teralon 12-17-2021 IMPRESSION: No acute process. Physician Assistant Surgery: EVIE Transcribe Date/Time: Dec 17 2021 1:44P [...] present. [id number]_ USE_DIVISIO N OF RADIOLOGY Provider, [facility] - 12/17/2021 * * *Final Report* [...] is present. IMPRESSION IMPRESSION: No acute process. Physician Assistant Surgery: EVIE Transcribe Date/Time: Dec 17 2021 1:44P Dictated by : CESAR REYES MD This examination was interpreted and the report reviewed and electronically signed by: CESAR REYES MD on Dec 17 2021 1:47PM EST [facility] Radiology Study observation (narrative) [facility] XR Humerus - right AP and La teralOrdered By: Ccf Provider on 12-17-2021 [facility] No Panel Informationon 12-16 [facility] No Panel Informationon 10-29 [facility] Basic metabolic 2000 panelon 09-11-2021 Anion gap [Moles/Vol] 13 mmol/L 9 - 18 mmol/L [facility] Calcium [Mass/Vol] 10.3 mg/dL High 8.5 - 10. 2 mg/dL [facility] Chloride [Moles/Vol] 102 mmol/L 97 - 10 5 mmol/L [facility] CO2 [Moles/Vol] 25 mmol/L 22 - 30 mmol/L [facility] Creatinine [Mass/Vol] 0.79 mg/dL 0.58 - 0.96 mg/dL [facility] GFR/1.73 sq M.predicted among blacks MDRD (S/P/Bld) [Vol rate/Area] mL/min/{1.73_m2} [facility] GFR/1.73 sq M.predicted among non-blacks MDRD (S/P/Bld) [Vol rate/Area] mL/min/{1.73_m2} [facility] Glucose [Mass/Vol] 88 mg/dL 74 - 99 mg/dL [facility] Potassium [Moles/Vol] 4.3 mmol/L 3.7 - 5.1 mmol/L [facility] Sodium [Moles/Vol] 140 mmol/L 136 - 144 mmol/L [facility] Urea nitrogen [Mass/Vol] 19 mg/dL 7 - 21 mg/dL [facility] CBC panel Auto (Bld)on 09-11 Absolute nRBC <0.01 <0.01 k/uL [facility] Erythrocyte distribution width (RBC) [Ratio] 12.5 % 11.5 - 15.0 % [facility] Hematocrit (Bld) [Volume fraction] 45.0 % 36.0 - 46.0 % [facility] Hemoglobin (Bld) [Mass/Vol] 14.4 g/dL 11.5 - 15.5 g/dL [facility] MCH (RBC) [Entitic mass] 29.4 pG 26. 0 - 34.0 pG [facility] MCHC (RBC) [Mass/Vol] 32.0 g/dL 30.5 - 36.0 g/dL [facility] MCV (RBC) [Entitic vol] 92.0 fL 80.0 - 100.0 fL [facility] Platelet mean volume (Bld) [Entitic vol] 12.1 fL 9.0 - 12.7 fL [facility] Platelets (Bld) [#/Vol] 204 10*3/uL 150 - 400 k/uL [facility] RBC (Bld) [#/Vol] 4.89 10*6/uL 3.90 - 5.2 0 m/uL [facility] WBC (Bld) [#/Vol] 6.76 10*3/uL 3.70 - 11.00 k/uL [facility] VITAMIN D 25 HYDROXYon 09-11 25-hydroxyvitamin D3 [Mass/Vol] 74.4 ng/mL 31.0 - 80.0 ng/mL [facility] Office Visiton 11-22-2016 Dietary management education, guidance, and counseling (procedure) yes Invalid Interpretation Code [employer] Work Phone: Documentation of current medications (procedure) Done Invalid Interpretation Code [employer] Work Phone: Clinical Lists Update: Prelo sizer machine 11-19-2016 Left ventricular Ejection fraction 65 % Invalid Interpretation Code [employer] Work Phone: Office Visiton 07-21-2015 Documentation of current medications (procedure) Done Invalid Interpretation Code [employer] Work Phone: Tobacco use CPHS Former smoker Invalid Interpretation Code [employer] Work Phone: Office Visit: [facility] 01-07-20 15 cardiac risk group B Invalid Interpretation Code [employer] Work Phone: General cardiovascular disease 10Y risk [#] [place].D'Agost[place] 9 % Invalid Interpretation Code [employer] Work Phone: Replaced Document: Melissa Rabago CG Observationson 01-06-2015 electrocardiogram interpretation Sinus Rhythm WITHIN NORMAL LIMITS Invalid Interpretation Code [employer] Work Phone: GE use only - for [employer] import when terms are not otherwise specified 428 ms Invalid Interpretation Code [employer] Phone: [phone] P wave axis, electrocardiogram 67 deg Invalid Interpretation Code [employer] Work Phone: [phone] VA interval, electrocardiogram 130 ms Invalid Interpretation Code [employer] Work Phone: [phone] Pulse (Heart Rate) 60 /min Invalid Interpretation Code [employer] Work Phone: [phone] QRS axis, electrocardiogram 44 deg Invalid Interpretation Code [employer] Work Phone: [phone] QRS duration, electrocardiogram 88 ms Invalid Interpretation Code [employer] Work Phone: [phone] QT interval, electrocardiogram new path ms Invalid Interpretation Code [employer] Work Phone: [phone] T wave axis, electrocardiogram 51 deg Invalid Interpretation Code [employer] Phone: [phone] Lab Report: Drawn @ [facility] Cholesterol 147 mg/dL Invalid Interpretation Code [employer] Phone: [phone] HDL Cholesterol 59 mg/dL Invalid Interpretation Code [employer] Work Phone: [phone] LDL Cholesterol 75 mg/dL Invalid Interpretation Code [employer] Work Phone: [phone] Triglyceride 65 mg/dL Invalid Interpretation Code [employer] Work Phone: [phone] very low density lipoproteins 13 mg/dL Invalid Interpretation Code [employer] Work Phone: [phone] Replaced Document: Jacintomark E CG Observationson 03-23-2013 Pulse (Heart Rate) 445 ms Invalid Interpretation Code [employer] Work Phone: [phone] Clinical Lists Update: Prelo sizer machine 01-19-2012 Anion gap 10 mmol/L Invalid Interpretation Code [employer] Phone: [phone] BUN/Creatinine Ratio 25.0 mg/mg Invalid Interpretation Code [employer] Work Phone: [phone] Calcium 8.3 mg/dL Invalid Interpretation Code [employer] Work Phone: [phone] Chloride 105 mmol/L Invalid Interpretation Code [employer] Work Phone: [phone] CO2 26.0 mmol/L Invalid Interpretation Code [employer] Work Phone: [phone] Creatinine 0.8 mg/dL Invalid Interpretation Code [facility] Work Phone: [phone] Erythrocytes (RBC) 4.14 10*6/uL Invalid Interpretation Code [facility] Work Phone: [phone] Glucose 244 mg/dL High [facility] Work Phone: [phone] Hematocrit (HCT) 36.6 % Invalid Interpretation Code [facility] Work Phone: [phone] Hemoglobin (HGB) 12.5 g/dL Invalid Interpretation Code [facility] Work Phone: [phone] MCH 30.1 pg Invalid Interpretation Code [facility] Work Phone: [phone] MCV 88.5 fL Invalid Interpretation Code [facility] Work Phone: [phone] Platelets 163 10*3/mm3 Invalid Interpretation Code [facility] Work Phone: [phone] Potassium 4.2 mmol/L Invalid Interpretation Code [facility] Work Phone: [phone] Sodium 141 mmol/L Invalid Interpretation Code [facility] Work Phone: [phone] Urea nitrogen 20 mg/dL Invalid Interpretation Code [facility] Work Phone: [phone] WBC (Leukocytes) 7.1 10*3/uL Invalid Interpretation Code [facility] Work Phone: [phone] Clinical Lists Update: Prelo sizer machine 01-18-2012 Thyroid stimulating hormone (TSH) 2.01 u[iU]/mL Invalid Interpretation Code [facility] Work Phone: [phone] Culture, urine Bacteria identified Cx Nom (U) Positive [facility] Work Phone: Gram stain for investigation of transfusion reaction Microscopic observation Gram stain Nom (Unsp spec) [facility] Work Phone: Influenza virus A and B and SARS-CoV-2 (COVID-19) Ag panel - Upper respiratory specim SARS-CoV-2 & FLU Antigen (Rapid) SARS-CoV-2 (COVID 19) [facility] Work Phone: Laboratory - Microbiology an d Antimicrobial susceptibility Bacteria identified Cx Nom (Bld) No growth in 5 days. [facility] Work Phone: Microbial respiratory cultur e Bacteria identified Respiratory culture Nom (Unsp spec) or Staphylococcus aureus isolated. [facility] Work Phone: No Panel Information Streptococcus pneumoniae Antigen (M [facility] Work Phone: SARS-CoV-2 (COVID-19) Ag IA. rapid Ql (Resp) SARS-CoV-2 Antigen (Rapid) SARS-CoV-2 (COVID 19) [facility] Work Phone: Vital Signs Date Time Vital Sign Value Performing Clinician Facility 03-19-2025 11:09-0400 Body mass index (BMI) [Ratio] 39.98 kg/m2 Arleen Milan SANDSTONE SPLITTER.LOCKER ATTENDANT Work Phone: [facility] 03-19-2025 11:09-0400 Body weight 124.6 kg Arleen Milan SANDSTONE SPLITTER.LOCKER ATTENDANT Work Phone: [facility] 03-19-2025 11:09-0400 Diastolic blood pressure 72 mm[Hg] Arleen Milan SANDSTONE SPLITTER.LOCKER ATTENDANT Work Phone: [facility] 03-19-2025 11:09-0400 Heart rate 60 /min Arleen Milan SANDSTONE SPLITTER.LOCKER ATTENDANT Work Phone: [facility] 03-19-2025 11:09-0400 Respiratory rate 16 /min Arleen Milan SANDSTONE SPLITTER.LOCKER ATTENDANT Work Phone: [facility] 03-19-2025 11:09-0400 SaO2% (BldA) [Mass fraction] 97 % Arleen Milan SANDSTONE SPLITTER.LOCKER ATTENDANT Work Phone: [facility] 03-19-2025 11:09-0400 Systolic blood pressure 124 mm[Hg] Arleen Milan SANDSTONE SPLITTER.LOCKER ATTENDANT Work Phone: [facility] 02-06-2025 12:00-0400 Body height 176.5 cm Renetta Cioce SANDSTONE SPLITTER.LOCKER ATTENDANT Work Phone: [facility] 02-06-2025 12:00-0400 Body mass index (BMI) [Ratio] 39.74 kg/m2 Renetta Cioce SANDSTONE SPLITTER.LOCKER ATTENDANT Work Phone: [facility] 02-06-2025 12:00-0400 Body weight 123.83 kg Renetta Cioce SANDSTONE SPLITTER.LOCKER ATTENDANT Work Phone: [facility] 02-06-2025 12:00-0400 Diastolic blood pressure 88 mm[Hg] Renetta Cioce SANDSTONE SPLITTER.LOCKER ATTENDANT Work Phone: [facility] 02-06-2025 12:00-0400 Heart rate 64 /min Renetta Cioce SANDSTONE SPLITTER.LOCKER ATTENDANT Work Phone: [facility] 02-06-2025 12:00-0400 Respiratory rate 19 /min Renetta Cioce SANDSTONE SPLITTER.LOCKER ATTENDANT Work Phone: [facility] 02-06-2025 12:00-0400 SaO2% (BldA) [Mass fraction] 95 % Renetta Cioce SANDSTONE SPLITTER.LOCKER ATTENDANT Work Phone: [facility] 02-06-2025 12:00-0400 Systolic blood pressure 132 mm[Hg] Renetta Cioce SANDSTONE SPLITTER.LOCKER ATTENDANT Work Phone: [facility] 01-29-2025 14:01-0400 Diastolic blood pressure 72 mm[Hg] Davon Narda SANDSTONE SPLITTER.LOCKER ATTENDANT Work Phone: [facility] 01-29-2025 14:01-0400 Heart rate 56 /min Davon Narda SANDSTONE SPLITTER.LOCKER ATTENDANT Work Phone: [facility] 01-29-2025 14:01-0400 Respiratory rate 16 /min Davon Narda SANDSTONE SPLITTER.LOCKER ATTENDANT Work Phone: [facility] 01-29-2025 14:01-0400 Systolic blood pressure 148 mm[Hg] Davon Narda SANDSTONE SPLITTER.LOCKER ATTENDANT Work Phone: [facility] 01-25-2025 22:14-0400 Body temperature 98 [degF] Dr. Octavio Reza MD Work Phone: [facility] 01-25-2025 22:14-0400 Diastolic blood pressure 72 mm[Hg] Dr. Octavio Reza MD Work Phone: [facility] 01-25-2025 22:14-0400 Heart rate 72 /min Dr. Octavio Reza MD Work Phone: [facility] 01-25-2025 22:14-0400 Respiratory rate 18 /min Dr. Octavio Reza MD Work Phone: [facility] 01-25-2025 22:14-0400 SaO2% (BldA) [Mass fraction] 97 % Dr. Octavio Reza MD Work Phone: [facility] 01-25-2025 22:14-0400 Systolic blood pressure 140 mm[Hg] Dr. Octavio Reza MD Work Phone: [facility] 01-25-2025 20:39-0400 Body height 175.[address] Octavio Reza MD Work Phone: [facility] 01-15-2025 09:56-0400 Body height 176.5 cm Octavio Reza MD Work Phone: [facility] 01-15-2025 09:56-0400 Body mass index (BMI) [Ratio] 40.43 kg/m2 Octavio Reza MD Work Phone: [facility] 01-15-2025 09:56-0400 Body weight 126 kg Octavio Reza MD Work Phone: [facility] 01-15-2025 09:56-0400 Diastolic blood pressure 80 mm[Hg] Octavio Reza MD Work Phone: [facility] 01-15-2025 09:56-0400 Heart rate 59 /min Octavio Reza MD Work Phone: [facility] 01-15-2025 09:56-0400 Respiratory rate 16 /min Octavio Reza MD Work Phone: [facility] 01-15-2025 09:56-0400 Systolic blood pressure 138 mm[Hg] Octavio Reza MD Work Phone: [facility] 01-14-2025 09:11-0400 Body height 175.[address] Octavio Reza MD Work Phone: [facility] 01-14-2025 09:11-0400 Body mass index (BMI) [Ratio] 41.2 kg/m2 Dr. Octavio Reza MD Work Phone: 9(216)248-730084 [place] [address] 01-14-2025 09:11-0400 Body weight 126.[address] Octavio Reza MD Work Phone: 0(572)386-355784 [place] [address] 01-14-2025 09:11-0400 Diastolic blood pressure 76 mm[Hg] Dr. Octavio Reza MD Work Phone: 9(286)920-935484 [place] [address] 01-14-2025 09:11-0400 Heart rate 56 /min Dr. Octavio Reza MD Work Phone: 1(485)729-073784 [place] [address] 01-14-2025 09:11-0400 Respiratory rate 18 /min Dr. Octavio Reza MD Work Phone: 5(926)477-878584 [place] [address] 01-14-2025 09:11-0400 Systolic blood pressure 147 mm[Hg] Dr. Octavio Reza MD Work Phone: 6(306)602-980084 [place] [address] 01-04-2025 23:10-0400 Body temperature 98 [degF] Dr. Octavio Reza MD Work Phone: 3(482)623-348584 [place] [address] 01-04-2025 23:10-0400 Diastolic blood pressure 54 mm[Hg] Dr. Octavio Reza MD Work Phone: 5(279)557-522984 [place] [address] 01-04-2025 23:10-0400 Heart rate 64 /min Dr. Octavio Reza MD Work Phone: 6(410)347-528484 [place] [address] 01-04-2025 23:10-0400 Respiratory rate 16 /min Dr. Octavio Reza MD Work Phone: 4(137)515-553684 [place] [address] 01-04-2025 23:10-0400 SaO2% (BldA) [Mass fraction] 95 % Dr. Octavio Reza MD Work Phone: 7(126)436-603884 [place] [address] 01-04-2025 23:10-0400 Systolic blood pressure 137 mm[Hg] Dr. Octavio Reza MD Work Phone: 6(796)718-283284 [place] [address] 01-04-2025 19:16-0400 Body height 175.[address] Octavio Reza MD Work Phone: 0(606)804-399784 [place] [address] 12-19-2024 17:46-0400 Body temperature 97.7 [degF] Dr. Octavio Reza MD Work Phone: 6(690)407-592484 [place] [address] 12-19-2024 17:46-0400 Diastolic blood pressure 63 mm[Hg] Dr. Octavio Reza MD Work Phone: 1(807)645-944484 [place] [address] 12-19-2024 17:46-0400 Heart rate 88 /min Dr. Octavio Reza MD Work Phone: 6(724)137-023984 [place] [address] 12-19-2024 17:46-0400 Respiratory rate 16 /min Dr. Octavio Reza MD Work Phone: 7(735)994-005584 [place] [address] 12-19-2024 17:46-0400 SaO2% (BldA) [Mass fraction] 99 % Dr. Octavio Reza MD Work Phone: 4(632)362-831284 [place] [address] 12-19-2024 17:46-0400 Systolic blood pressure 167 mm[Hg] Dr. Octavio Reza MD Work Phone: 9(721)725-547484 [place] [address] 12-19-2024 15:55-0400 Body mass index (BMI) [Ratio] 42.4 kg/m2 Dr. Octavio Reza MD Work Phone: 4(227)716-027484 [place] [address] 12-19-2024 15:55-0400 Body weight 130.[address] Octavio Reza MD Work Phone: 5(160)078-445984 [place] [address] 12-19-2024 15:49-0400 Body height 175.[address] Octavio Reza MD Work Phone: 7(164)300-927784 [place] [address] 11-29-2024 23:34-0400 Body temperature 98 [degF] Dr. Octavio Reza MD Work Phone: 7(546)441-541584 [place] [address] 11-29-2024 23:34-0400 Diastolic blood pressure 69 mm[Hg] Dr. Octavio Reza MD Work Phone: 6(832)864-045784 [place] [address] 11-29-2024 23:34-0400 Heart rate 90 /min Dr. Octavio Reza MD Work Phone: 5(552)463-882684 [place] [address] 11-29-2024 23:34-0400 Respiratory rate 18 /min Dr. Octavio Reza MD Work Phone: 5(307)837-924984 [place] [address] 11-29-2024 23:34-0400 SaO2% (BldA) [Mass fraction] 98 % Dr. Octavio Reza MD Work Phone: 0(480)260-558984 [place] [address] 11-29-2024 23:34-0400 Systolic blood pressure 157 mm[Hg] Dr. Octavio Reza MD Work Phone: 4(071)247-741084 [place] [address] 11-29-2024 21:15-0400 Body mass index (BMI) [Ratio] 42.8 kg/m2 Dr. Octavio Reza MD Work Phone: 4(441)608-014984 [place] [address] 11-29-2024 21:15-0400 Body weight 131.[address] Octavio Reza MD Work Phone: 9(826)622-123884 [place] [address] 11-29-2024 21:13-0400 Body height 175.[address] Octavio Reza MD Work Phone: 0(799)616-274484 [place] [address] 11-15-2024 08:20-0400 Body mass index (BMI) [Ratio] 41.6 kg/m2 Dr. Octavio Reza MD Work Phone: 1(722)690-165884 [place] [address] 11-15-2024 08:20-0400 Body weight 127.[address] Octavio Reza MD Work Phone: 1(719)661-769684 [place] [address] 11-15-2024 08:20-0400 Diastolic blood pressure 64 mm[Hg] Dr. Octavio Reza MD Work Phone: 6(146)517-883784 [place] [address] 11-15-2024 08:20-0400 Heart rate 72 /min Dr. Octavio Reza MD Work Phone: 6(972)865-792184 [place] [address] 11-15-2024 08:20-0400 Respiratory rate 18 /min Dr. Octavio Reza MD Work Phone: 6(355)389-048284 [place] [address] 11-15-2024 08:20-0400 Systolic blood pressure 137 mm[Hg] Dr. Octavio Reza MD Work Phone: 4(108)410-620384 [place] [address] 11-03-2024 11:07-0400 Body temperature 97.8 [degF] Dr. Octavio Reza MD Work Phone: 3(940)604-860984 [place] [address] 11-03-2024 11:07-0400 Diastolic blood pressure 59 mm[Hg] Dr. Octavio Reza MD Work Phone: 1(473)579-066784 [place] [address] 11-03-2024 11:07-0400 Heart rate 87 /min Dr. Octavio Reza MD Work Phone: 2(200)242-733684 [place] [address] 11-03-2024 11:07-0400 Respiratory rate 16 /min Dr. Octavio Reza MD Work Phone: 5(034)598-671384 [place] [address] 11-03-2024 11:07-0400 SaO2% (BldA) [Mass fraction] 98 % Dr. Octavio Reza MD Work Phone: 5(188)938-856684 [place] [address] 11-03-2024 11:07-0400 Systolic blood pressure 153 mm[Hg] Dr. Octavio Reza MD Work Phone: 2(195)811-267884 [place] [address] 11-03-2024 06:56-0400 Body height 175.[address] Octavio Reza MD Work Phone: 8(201)549-927284 [place] [address] 11-03-2024 06:56-0400 Body mass index (BMI) [Ratio] 43.2 kg/m2 Dr. Octavio Reza MD Work Phone: 7(821)170-278184 [place] [address] 11-03-2024 06:56-0400 Body weight 132.[address] Octavio Reza MD Work Phone: [facility] 10-31-2024 15:00-0400 Body mass index (BMI) [Ratio] 42.27 kg/m2 Renetta Cioce SANDSTONE SPLITTER.LOCKER ATTENDANT Work Phone: [facility] 10-31-2024 15:00-0400 Body temperature 97.81 [degF] Renetta Cioce SANDSTONE SPLITTER.LOCKER ATTENDANT Work Phone: [facility] 10-31-2024 15:00-0400 Body weight 131.72 kg Renetta Cioce SANDSTONE SPLITTER.LOCKER ATTENDANT Work Phone: [facility] 10-31-2024 15:00-0400 Heart rate 72 /min Renetta Cioce SANDSTONE SPLITTER.LOCKER ATTENDANT Work Phone: [facility] 10-31-2024 15:00-0400 SaO2% (BldA) [Mass fraction] 96 % Renetta Cioce SANDSTONE SPLITTER.LOCKER ATTENDANT Work Phone: [facility] 10-24-2024 22:08-0400 Body temperature 98 [degF] Dr. Octavio Reza MD Work Phone: [facility] 10-24-2024 22:08-0400 Diastolic blood pressure 60 mm[Hg] Dr. Octavio Reza MD Work Phone: [facility] 10-24-2024 22:08-0400 Heart rate 71 /min Dr. Octavio Reza MD Work Phone: [facility] 10-24-2024 22:08-0400 Respiratory rate 18 /min Dr. Octavio Reza MD Work Phone: [facility] 10-24-2024 22:08-0400 SaO2% (BldA) [Mass fraction] 95 % Dr. Octavio Reza MD Work Phone: [facility] 10-24-2024 22:08-0400 Systolic blood pressure 150 mm[Hg] Dr. Octavio Reza MD Work Phone: 2(252)173-354084 [place] [address] 10-24-2024 20:50-0400 Body mass index (BMI) [Ratio] 46 kg/m2 Dr. Octavio Reza MD Work Phone: 6(477)035-985584 [place] [address] 10-24-2024 20:50-0400 Body weight 141.[address] Octavio Reza MD Work Phone: 4(280)344-183084 [place] [address] 10-24-2024 20:23-0400 Body height 175.[address] Octavio Reza MD Work Phone: 5(757)630-416084 [place] [address] 10-19-2024 12:41-0400 Body temperature 97.8 [degF] Dr. Octavio Reza MD Work Phone: 8(178)593-886284 [place] [address] 10-19-2024 12:41-0400 Diastolic blood pressure 78 mm[Hg] Dr. Octavio Reza MD Work Phone: 7(518)211-100284 [place] [address] 10-19-2024 12:41-0400 Heart rate 73 /min Dr. Octavio Reza MD Work Phone: 2(156)944-517784 [place] [address] 10-19-2024 12:41-0400 Respiratory rate 14 /min Dr. Octavio Reza MD Work Phone: 7(987)112-482284 [place] [address] 10-19-2024 12:41-0400 SaO2% (BldA) [Mass fraction] 97 % Dr. Octavio Reza MD Work Phone: 2(121)406-304684 [place] [address] 10-19-2024 12:41-0400 Systolic blood pressure 141 mm[Hg] Dr. Octavio Reza MD Work Phone: 4(251)433-419484 [place] [address] 10-19-2024 09:42-0400 Body mass index (BMI) [Ratio] 42.4 kg/m2 Dr. Octavio Reza MD Work Phone: 7(865)612-952984 [place] [address] 10-19-2024 09:42-0400 Body weight 130.[address] Octavio Reza MD Work Phone: [facility] 10-19-2024 09:27-0400 Body height 175.[address] Octavio Reza MD Work Phone: [facility] 10-15-2024 13:40-0400 Body mass index (BMI) [Ratio] 42.2 kg/m2 Octavio Reza MD Work Phone: [facility] 10-15-2024 13:40-0400 Body weight 131.5 kg Octavio Reza MD Work Phone: [facility] 10-15-2024 13:40-0400 Diastolic blood pressure 64 mm[Hg] Octavio Reza MD Work Phone: [facility] 10-15-2024 13:40-0400 Heart rate 64 /min Octavio Reza MD Work Phone: [facility] 10-15-2024 13:40-0400 Respiratory rate 14 /min Octavio Reza MD Work Phone: [facility] 10-15-2024 13:40-0400 Systolic blood pressure 140 mm[Hg] Octavio Reza MD Work Phone: [facility] 09-26-2024 10:04-0400 Body mass index (BMI) [Ratio] 43.03 kg/m2 Octavio Reza MD Work Phone: [facility] 09-26-2024 10:04-0400 Body weight 134.1 kg Octavio Reza MD Work Phone: [facility] 09-26-2024 10:04-0400 Diastolic blood pressure 75 mm[Hg] Octavio Reza MD Work Phone: [facility] 09-26-2024 10:04-0400 Heart rate 55 /min Octavio Reza MD Work Phone: [facility] 09-26-2024 10:04-0400 Respiratory rate 16 /min Octavio Reza MD Work Phone: [facility] 09-26-2024 10:04-0400 Systolic blood pressure 143 mm[Hg] Octavio Reza MD Work Phone: [facility] 09-23-2024 22:36-0400 Body temperature 98 [degF] Dr. Octavio Reza MD Work Phone: [facility] 09-23-2024 22:36-0400 Diastolic blood pressure 57 mm[Hg] Dr. Octavio Reza MD Work Phone: 0(500)895-118414 [place] [address] 09-23-2024 22:36-0400 Heart rate 65 /min Dr. Octavio Reza MD Work Phone: 6(684)170-727684 [place] [address] 09-23-2024 22:36-0400 Respiratory rate 18 /min Dr. Octavio Reza MD Work Phone: 3(138)152-542284 [place] [address] 09-23-2024 22:36-0400 SaO2% (BldA) [Mass fraction] 99 % Dr. Octavio Reza MD Work Phone: 6(454)069-582784 [place] [address] 09-23-2024 22:36-0400 Systolic blood pressure 135 mm[Hg] Dr. Octavio Reza MD Work Phone: 6(656)608-307184 [place] [address] 09-23-2024 19:25-0400 Body height 175.[address] Octavio Reza MD Work Phone: 7(254)028-682884 [place] [address] 09-23-2024 19:25-0400 Body mass index (BMI) [Ratio] 44 kg/m2 Dr. Octavio Reza MD Work Phone: 6(631)025-307214 [place] [address] 09-23-2024 19:25-0400 Body weight 135.[address] Octavio Reza MD Work Phone: 7(013)476-375484 [place] [address] 09-21-2024 10:19-0500 Body temperature 97.9 [degF] Dr. Octavio Reza MD Work Phone: 2(300)896-213284 [place] [address] 09-21-2024 10:19-0500 Diastolic blood pressure 50 mm[Hg] Dr. Octavio Reza MD Work Phone: 5(424)745-487584 [place] [address] 09-21-2024 10:19-0500 Heart rate 73 /min Dr. Octavio Reza MD Work Phone: 0(233)037-035284 [place] [address] 09-21-2024 10:19-0500 Respiratory rate 16 /min Dr. Octavio Reza MD Work Phone: 2(775)564-213784 [place] [address] 09-21-2024 10:19-0500 SaO2% (BldA) [Mass fraction] 99 % Dr. Octavio Reza MD Work Phone: 3(145)898-147884 [place] [address] 09-21-2024 10:19-0500 Systolic blood pressure 118 mm[Hg] Dr. Octavio Reza MD Work Phone: 6(818)776-810584 [place] [address] 09-21-2024 06:22-0500 Body height 175.[address] Octavio Reza MD Work Phone: 0(009)360-323384 [place] [address] 09-21-2024 06:22-0500 Body mass index (BMI) [Ratio] 43.7 kg/m2 Dr. Octavio Reza MD Work Phone: 5(262)437-898684 [place] [address] 09-21-2024 06:22-0500 Body weight 134.[address] Octavio Reza MD Work Phone: 4(428)796-710384 [place] [address] 09-20-2024 23:40-0500 Body temperature 98.4 [degF] Dr. Octavio eRza MD Work Phone: 6(329)396-030184 [place] [address] 09-20-2024 23:40-0500 Diastolic blood pressure 51 mm[Hg] Dr. Octavio Reza MD Work Phone: 8(844)102-677584 [place] [address] 09-20-2024 23:40-0500 Heart rate 80 /min Dr. Octavio Reza MD Work Phone: 1(804)198-992084 [place] [address] 09-20-2024 23:40-0500 Respiratory rate 18 /min Dr. Octavio Reza MD Work Phone: 2(989)907-280084 [place] [address] 09-20-2024 23:40-0500 SaO2% (BldA) [Mass fraction] 95 % Dr. Octavio Reza MD Work Phone: 5(069)760-791614 [place] [address] 09-20-2024 23:40-0500 Systolic blood pressure 116 mm[Hg] Dr. Octavio Reza MD Work Phone: 5(862)218-773284 [place] [address] 09-20-2024 17:49-0500 Body height 175.[address] Octaivo Reza MD Work Phone: 5(307)907-920184 [place] [address] 07-28-2024 22:41-0500 Body temperature 97.4 [degF] Dr. Octavio Reza MD Work Phone: 4(852)462-752384 [place] [address] 07-28-2024 22:41-0500 Diastolic blood pressure 74 mm[Hg] Dr. Octavio Reza MD Work Phone: 1(836)339-082584 [place] [address] 07-28-2024 22:41-0500 Heart rate 59 /min Dr. Octavio Reza MD Work Phone: 4(801)993-379784 [place] [address] 07-28-2024 22:41-0500 Respiratory rate 18 /min Dr. Octavio Reza MD Work Phone: 3(543)480-391284 [place] [address] 07-28-2024 22:41-0500 SaO2% (BldA) [Mass fraction] 98 % Dr. Octavio Reza MD Work Phone: 5(607)773-840714 [place] [address] 07-28-2024 22:41-0500 Systolic blood pressure 160 mm[Hg] Dr. Octavio Reza MD Work Phone: 6(618)222-051214 [place] [address] 07-28-2024 20:36-0500 Body mass index (BMI) [Ratio] 45.3 kg/m2 Dr. Octavio Reza MD Work Phone: 8(784)051-028514 [place] [address] 07-28-2024 20:36-0500 Body weight 139.[address] Octavio Reza MD Work Phone: 1(536)892-985514 [place] [address] 07-03-2024 14:30-0500 Diastolic blood pressure 73 mm[Hg] Lydia Grande APRN.CNS Work Phone: [facility] Comment on above: bp average 07-03-2024 14:30-0500 Heart rate 67 /min Lydia Grande SANDSTONE SPLITTER.COMMUNITY DEVELOPMENT COORDINATOR Work Phone: [facility] 07-03-2024 14:30-0500 Systolic blood pressure 132 mm[Hg] Lydia Grande SANDSTONE SPLITTER.COMMUNITY DEVELOPMENT COORDINATOR Work Phone: [facility] Comment on above: bp average 07-03-2024 14:25-0500 Body mass index (BMI) [Ratio] 44.22 kg/m2 Lydia Grande SANDSTONE SPLITTER.COMMUNITY DEVELOPMENT COORDINATOR Work Phone: [facility] 07-03-2024 14:25-0500 Body weight 137.8 kg Lydia Grande SANDSTONE SPLITTER.COMMUNITY DEVELOPMENT COORDINATOR Work Phone: [facility] 07-03-2024 14:25-0500 Respiratory rate 16 /min Lydia Grande SANDSTONE SPLITTER.COMMUNITY DEVELOPMENT COORDINATOR Work Phone: [facility] 07-03-2024 00:49-0500 Body temperature 97.6 [degF] Dr. Octavio Reza MD Work Phone: [facility] 07-03-2024 00:49-0500 Diastolic blood pressure 71 mm[Hg] Dr. Octavio Reza MD Work Phone: [facility] 07-03-2024 00:49-0500 Heart rate 60 /min Dr. Octavio Reza MD Work Phone: [facility] 07-03-2024 00:49-0500 Respiratory rate 19 /min Dr. Octavio Reza MD Work Phone: [facility] 07-03-2024 00:49-0500 SaO2% (BldA) [Mass fraction] 97 % Dr. Octavio Reza MD Work Phone: [facility] 07-03-2024 00:49-0500 Systolic blood pressure 142 mm[Hg] Dr. Octavio Reza MD Work Phone: [facility] 07-02-2024 21:59-0500 Body mass index (BMI) [Ratio] 44.9 kg/m2 Dr. Octavio Reza MD Work Phone: [facility] 07-02-2024 21:59-0500 Body weight 137.[address] Octavio Reza MD Work Phone: 8(389)890-536514 [place] [address] 06-13-2024 08:55-0500 Body mass index (BMI) [Ratio] 44.9 kg/m2 Dr. Octavio Reza MD Work Phone: 8(349)362-792984 [place] [address] 06-13-2024 08:55-0500 Body weight 137.[address] Octavio Reza MD Work Phone: 6(801)168-539584 [place] [address] 06-13-2024 08:55-0500 Diastolic blood pressure 65 mm[Hg] Dr. Octavio Reza MD Work Phone: 4(388)771-875784 [place] [address] 06-13-2024 08:55-0500 Heart rate 58 /min Dr. Octavio Reza MD Work Phone: 8(845)863-840914 [place] [address] 06-13-2024 08:55-0500 Respiratory rate 18 /min Dr. Octavio Reza MD Work Phone: 1(405)143-384984 [place] [address] 06-13-2024 08:55-0500 Systolic blood pressure 155 mm[Hg] Dr. Octavio Reza MD Work Phone: [facility] 06-11-2024 09:46-0500 Body mass index (BMI) [Ratio] 44.86 kg/m2 Octavio Reza MD Work Phone: [facility] 06-11-2024 09:46-0500 Body weight 139.8 kg Octavio Reza MD Work Phone: [facility] 06-11-2024 09:46-0500 Diastolic blood pressure 78 mm[Hg] Octavio Reza MD Work Phone: [facility] 06-11-2024 09:46-0500 Heart rate 51 /min Octavio Reza MD Work Phone: [facility] 06-11-2024 09:46-0500 SaO2% (BldA) [Mass fraction] 96 % Octavio Reza MD Work Phone: [facility] 06-11-2024 09:46-0500 Systolic blood pressure 124 mm[Hg] Octavio Reza MD Work Phone: [facility] 06-08-2024 19:19-0500 Body temperature 97.7 [degF] Dr. Octavio Reza MD Work Phone: [facility] 06-08-2024 19:19-0500 Diastolic blood pressure 85 mm[Hg] Dr. Octavio Reza MD Work Phone: 9(257)088-934884 [place] [address] 06-08-2024 19:19-0500 Heart rate 64 /min Dr. Octavio Reza MD Work Phone: 0(637)854-580914 [place] [address] 06-08-2024 19:19-0500 Respiratory rate 18 /min Dr. Octavio Reza MD Work Phone: 7(432)817-628014 [place] [address] 06-08-2024 19:19-0500 SaO2% (BldA) [Mass fraction] 94 % Dr. Octavio Reza MD Work Phone: 4(327)170-061714 [place] [address] 06-08-2024 19:19-0500 Systolic blood pressure 150 mm[Hg] Dr. Octavio Reza MD Work Phone: 8(364)985-370414 [place] [address] 06-08-2024 17:11-0500 Body mass index (BMI) [Ratio] 46.2 kg/m2 Dr. cOtavio Reza MD Work Phone: [facility] 06-08-2024 17:11-0500 Body weight 141.[address] Octavio Reza MD Work Phone: 5(883)292-101714 [place] [address] 05-27-2024 21:02-0500 Body temperature 97.8 [degF] Dr. Octavio Reza MD Work Phone: 6(299)955-032314 [place] [address] 05-27-2024 21:02-0500 Diastolic blood pressure 80 mm[Hg] Dr. Octavio Reza MD Work Phone: 7(102)150-915484 [place] [address] 05-27-2024 21:02-0500 Heart rate 68 /min Dr. Octavio Reza MD Work Phone: 4(716)327-567984 [place] [address] 05-27-2024 21:02-0500 Respiratory rate 18 /min Dr. Octavio Reza MD Work Phone: 3(941)066-288584 [place] [address] 05-27-2024 21:02-0500 SaO2% (BldA) [Mass fraction] 97 % Dr. Octavio Reza MD Work Phone: 3(697)448-427684 [place] [address] 05-27-2024 21:02-0500 Systolic blood pressure 146 mm[Hg] Dr. Octavio Reza MD Work Phone: 0(812)138-085484 [place] [address] 05-25-2024 06:17-0500 Body temperature 97 [degF] Dr. Octavio Reza MD Work Phone: 6(441)542-354084 [place] [address] 05-25-2024 06:17-0500 Diastolic blood pressure 53 mm[Hg] Dr. Octavio Reza MD Work Phone: 4(348)416-851084 [place] [address] 05-25-2024 06:17-0500 Heart rate 72 /min Dr. Octavio Reza MD Work Phone: 5(486)498-857084 [place] [address] 05-25-2024 06:17-0500 Respiratory rate 17 /min Dr. Octavio Reza MD Work Phone: 9(610)202-777084 [place] [address] 05-25-2024 06:17-0500 SaO2% (BldA) [Mass fraction] 95 % Dr. Octavio Reza MD Work Phone: 5(220)555-827484 [place] [address] 05-25-2024 06:17-0500 Systolic blood pressure 121 mm[Hg] Dr. Octavio Reza MD Work Phone: 3(831)791-663884 [place] [address] 05-25-2024 04:47-0500 Body mass index (BMI) [Ratio] 46.1 kg/m2 Dr. Octavio Reza MD Work Phone: 7(679)796-374884 [place] [address] 05-25-2024 04:47-0500 Body weight 141.[address] Octavio Reza MD Work Phone: [facility] 05-23-2024 12:31-0500 Body height 176.5 cm Renetta Cioce SANDSTONE SPLITTER.LOCKER ATTENDANT Work Phone: [facility] 05-23-2024 12:31-0500 Body mass index (BMI) [Ratio] 44.98 kg/m2 Renetta Cioce SANDSTONE SPLITTER.LOCKER ATTENDANT Work Phone: [facility] 05-23-2024 12:31-0500 Body weight 140.16 kg Renetta Cioce SANDSTONE SPLITTER.LOCKER ATTENDANT Work Phone: [facility] 05-23-2024 12:31-0500 Diastolic blood pressure 72 mm[Hg] Renetta Cioce SANDSTONE SPLITTER.LOCKER ATTENDANT Work Phone: [facility] 05-23-2024 12:31-0500 Heart rate 60 /min Renetta Cioce SANDSTONE SPLITTER.LOCKER ATTENDANT Work Phone: [facility] 05-23-2024 12:31-0500 Respiratory rate 20 /min Renetta Cioce SANDSTONE SPLITTER.LOCKER ATTENDANT Work Phone: [facility] 05-23-2024 12:31-0500 SaO2% (BldA) [Mass fraction] 97 % Renetta Cioce SANDSTONE SPLITTER.LOCKER ATTENDANT Work Phone: [facility] 05-23-2024 12:31-0500 Systolic blood pressure 138 mm[Hg] Renetta Cioce SANDSTONE SPLITTER.LOCKER ATTENDANT Work Phone: [facility] 05-07-2024 15:18-0400 Diastolic blood pressure 72 mm[Hg] Davon Narda SANDSTONE SPLITTER.LOCKER ATTENDANT Work Phone: [facility] 05-07-2024 15:18-0400 Systolic blood pressure 140 mm[Hg] Davon Narda SANDSTONE SPLITTER.LOCKER ATTENDANT Work Phone: [facility] 05-07-2024 15:09-0400 Body mass index (BMI) [Ratio] 45.31 kg/m2 Davon Narda SANDSTONE SPLITTER.LOCKER ATTENDANT Work Phone: [facility] 05-07-2024 15:09-0400 Body weight 141.2 kg Davon Narda SANDSTONE SPLITTER.LOCKER ATTENDANT Work Phone: [facility] 05-07-2024 15:09-0400 Heart rate 60 /min Davon Narda SANDSTONE SPLITTER.LOCKER ATTENDANT Work Phone: [facility] 05-07-2024 15:09-0400 SaO2% (BldA) [Mass fraction] 97 % Davon Narda SANDSTONE SPLITTER.LOCKER ATTENDANT Work Phone: [facility] 04-18-2024 09:24-0400 Body mass index (BMI) [Ratio] 46.18 kg/m2 Smiley Prieto SANDSTONE SPLITTER.LOCKER ATTENDANT Work Phone: [facility] 04-18-2024 09:24-0400 Body temperature 97.3 [degF] Smiley Prieto SANDSTONE SPLITTER.LOCKER ATTENDANT Work Phone: [facility] 04-18-2024 09:24-0400 Body weight 143.9 kg Smiley Prieto SANDSTONE SPLITTER.LOCKER ATTENDANT Work Phone: [facility] 04-18-2024 09:24-0400 Diastolic blood pressure 84 mm[Hg] Smiley Prieto SANDSTONE SPLITTER.LOCKER ATTENDANT Work Phone: [facility] 04-18-2024 09:24-0400 Heart rate 60 /min Smiley Prieto SANDSTONE SPLITTER.LOCKER ATTENDANT Work Phone: [facility] 04-18-2024 09:24-0400 Respiratory rate 18 /min Smiley Prieto SANDSTONE SPLITTER.LOCKER ATTENDANT Work Phone: [facility] 04-18-2024 09:24-0400 SaO2% (BldA) [Mass fraction] 97 % Smiley Prieto SANDSTONE SPLITTER.LOCKER ATTENDANT Work Phone: [facility] 04-18-2024 09:24-0400 Systolic blood pressure 136 mm[Hg] Smiley Prieto SANDSTONE SPLITTER.LOCKER ATTENDANT Work Phone: [facility] 03-07-2024 10:50-0400 Diastolic blood pressure 82 mm[Hg] Radha Click SANDSTONE SPLITTER.LOCKER ATTENDANT Work Phone: [facility] 03-07-2024 10:50-0400 Heart rate 72 /min Radha Click SANDSTONE SPLITTER.LOCKER ATTENDANT Work Phone: [facility] 03-07-2024 10:50-0400 Respiratory rate 15 /min Radha Click SANDSTONE SPLITTER.LOCKER ATTENDANT Work Phone: [facility] 03-07-2024 10:50-0400 SaO2% (BldA) [Mass fraction] 97 % Radha Click SANDSTONE SPLITTER.LOCKER ATTENDANT Work Phone: [facility] 03-07-2024 10:50-0400 Systolic blood pressure 132 mm[Hg] Radha Click SANDSTONE SPLITTER.LOCKER ATTENDANT Work Phone: [facility] 02-15-2024 14:34-0400 Body height 176.5 cm Renetta Cioce SANDSTONE SPLITTER.LOCKER ATTENDANT Work Phone: [facility] 02-15-2024 14:34-0400 Body mass index (BMI) [Ratio] 45.85 kg/m2 Renetta Cioce SANDSTONE SPLITTER.LOCKER ATTENDANT Work Phone: [facility] 02-15-2024 14:34-0400 Body temperature 97.81 [degF] Renetta Cioce SANDSTONE SPLITTER.LOCKER ATTENDANT Work Phone: [facility] 02-15-2024 14:34-0400 Body weight 142.88 kg Renetta Cioce SANDSTONE SPLITTER.LOCKER ATTENDANT Work Phone: [facility] 02-15-2024 14:34-0400 Heart rate 65 /min Renetta Cioce SANDSTONE SPLITTER.LOCKER ATTENDANT Work Phone: [facility] 02-15-2024 14:34-0400 SaO2% (BldA) [Mass fraction] 96 % Renetta Cioce SANDSTONE SPLITTER.LOCKER ATTENDANT Work Phone: [facility] 02-13-2024 09:17-0400 Body mass index (BMI) [Ratio] 45.88 kg/m2 Octavio Reza MD Work Phone: [facility] 02-13-2024 09:17-0400 Body temperature 97.5 [degF] Octavio Reza MD Work Phone: [facility] 02-13-2024 09:17-0400 Body weight 142.97 kg Octavio Reza MD Work Phone: [facility] 02-13-2024 09:17-0400 Diastolic blood pressure 80 mm[Hg] Octavio Reza MD Work Phone: [facility] 02-13-2024 09:17-0400 Heart rate 59 /min Octavio Reza MD Work Phone: [facility] 02-13-2024 09:17-0400 Respiratory rate 16 /min Octavio Reza MD Work Phone: [facility] 02-13-2024 09:17-0400 SaO2% (BldA) [Mass fraction] 97 % Octavio Reza MD Work Phone: [facility] 02-13-2024 09:17-0400 Systolic blood pressure 130 mm[Hg] Octavio Reza MD Work Phone: [facility] 01-02-2024 11:16-0400 Body mass index (BMI) [Ratio] 46.66 kg/m2 Tamika Morris MD Work Phone: [facility] 01-02-2024 11:16-0400 Body temperature 97.59 [degF] Tamika Morris MD Work Phone: [facility] 01-02-2024 11:16-0400 Body weight 145.4 kg Tamika Morris MD Work Phone: [facility] 01-02-2024 11:16-0400 Diastolic blood pressure 82 mm[Hg] Tamika Morris MD Work Phone: [facility] 01-02-2024 11:16-0400 Heart rate 60 /min Tamika Morris MD Work Phone: [facility] 01-02-2024 11:16-0400 Respiratory rate 18 /min Tamika Morris MD Work Phone: [facility] 01-02-2024 11:16-0400 SaO2% (BldA) [Mass fraction] 95 % Tamika Morris MD Work Phone: [facility] 01-02-2024 11:16-0400 Systolic blood pressure 152 mm[Hg] Tamika Morris MD Work Phone: [facility] 12-07-2023 10:13-0400 Body height 176.5 cm Renetta Cioce SANDSTONE SPLITTER.LOCKER ATTENDANT Work Phone: [facility] 12-07-2023 10:13-0400 Body mass index (BMI) [Ratio] 48.03 kg/m2 Renetta Cioce SANDSTONE SPLITTER.LOCKER ATTENDANT Work Phone: [facility] 12-07-2023 10:13-0400 Body weight 149.69 kg Renetta Cioce SANDSTONE SPLITTER.LOCKER ATTENDANT Work Phone: [facility] 12-07-2023 10:13-0400 Diastolic blood pressure 70 mm[Hg] Renetta Cioce SANDSTONE SPLITTER.LOCKER ATTENDANT Work Phone: [facility] 12-07-2023 10:13-0400 Heart rate 58 /min Renetta Cioce SANDSTONE SPLITTER.LOCKER ATTENDANT Work Phone: [facility] 12-07-2023 10:13-0400 Respiratory rate 20 /min Renetta Cioce SANDSTONE SPLITTER.LOCKER ATTENDANT Work Phone: [facility] 12-07-2023 10:13-0400 SaO2% (BldA) [Mass fraction] 96 % Renetta Cioce SANDSTONE SPLITTER.LOCKER ATTENDANT Work Phone: [facility] 12-07-2023 10:13-0400 Systolic blood pressure 132 mm[Hg] Renetta Cioce SANDSTONE SPLITTER.LOCKER ATTENDANT Work Phone: [facility] 11-29-2023 00:00-0400 Body temperature 98.7 [degF] Dr. Octavio Reza Work Phone: [facility] 11-29-2023 00:00-0400 Diastolic blood pressure 59 mm[Hg] Dr. Octavio Reza Work Phone: [facility] 11-29-2023 00:00-0400 Heart rate 85 /min Dr. Octavio Reza Work Phone: [facility] 11-29-2023 00:00-0400 Respiratory rate 16 /min Dr. Octavio Reza Work Phone: [facility] 11-29-2023 00:00-0400 SaO2% (BldA) [Mass fraction] 99 % Dr. Octavio Reza Work Phone: [facility] 11-29-2023 00:00-0400 Systolic blood pressure 130 mm[Hg] Dr. Octavio Reza Work Phone: [facility] 11-28-2023 20:06-0400 Body mass index (BMI) [Ratio] 53.1 kg/m2 Dr. Octavio Reza Work Phone: 6(810)208-511714 [place] [address] 11-28-2023 20:06-0400 Body weight 159.[address] Octavio Reza Work Phone: [facility] 11-28-2023 18:51-0400 Body height 172.[address] Octavio Reza Work Phone: [facility] 11-09-2023 15:10-0400 Diastolic blood pressure 70 mm[Hg] Davon Narda SANDSTONE SPLITTER.LOCKER ATTENDANT Work Phone: [facility] 11-09-2023 15:10-0400 Systolic blood pressure 132 mm[Hg] Davon Narda SANDSTONE SPLITTER.LOCKER ATTENDANT Work Phone: [facility] 11-09-2023 15:08-0400 Body mass index (BMI) [Ratio] 48.88 kg/m2 Davon Narda SANDSTONE SPLITTER.LOCKER ATTENDANT Work Phone: [facility] 11-09-2023 15:08-0400 Body weight 150.14 kg Davon Narda SANDSTONE SPLITTER.LOCKER ATTENDANT Work Phone: [facility] 11-09-2023 15:08-0400 Heart rate 63 /min Davon Wolfe SANDSTONE SPLITTER.LOCKER ATTENDANT Work Phone: [facility] 11-09-2023 15:08-0400 SaO2% (BldA) [Mass fraction] 98 % Davon Wolfe SANDSTONE SPLITTER.LOCKER ATTENDANT Work Phone: [facility] 11-07-2023 17:47-0400 Diastolic blood pressure 65 mm[Hg] Dr. Octavio Reza Work Phone: [facility] 11-07-2023 17:47-0400 Heart rate 74 /min Dr. Octavio Reza Work Phone: 7(086)795-424184 [place] [address] 11-07-2023 17:47-0400 Respiratory rate 16 /min Dr. Octavio Reza Work Phone: 4(780)331-664184 [place] [address] 11-07-2023 17:47-0400 SaO2% (BldA) [Mass fraction] 95 % Dr. Octavio Reza Work Phone: 0(314)007-008714 [place] [address] 11-07-2023 17:47-0400 Systolic blood pressure 161 mm[Hg] Dr. Octavio Reza Work Phone: 4(343)514-388184 [place] [address] 11-07-2023 15:43-0400 Body height 175.[address] Octavio Reza Work Phone: 9(828)854-304814 [place] [address] 11-07-2023 15:43-0400 Body temperature 97.1 [degF] Dr. Octavio Reza Work Phone: 0(706)394-543914 [place] [address] 11-07-2023 00:02-0400 Body temperature 96.5 [degF] Dr. Octavio Reza Work Phone: [facility] 11-07-2023 00:02-0400 Diastolic blood pressure 62 mm[Hg] Dr. Octavio Reza Work Phone: [facility] 11-07-2023 00:02-0400 Heart rate 61 /min Dr. Octavio Reza Work Phone: [facility] 11-07-2023 00:02-0400 Respiratory rate 18 /min Dr. Octavio Reza Work Phone: [facility] 11-07-2023 00:02-0400 SaO2% (BldA) [Mass fraction] 97 % Dr. Octavio Reza Work Phone: [facility] 11-07-2023 00:02-0400 Systolic blood pressure 150 mm[Hg] Dr. Octavio Reza Work Phone: [facility] 11-07-2023 00:01-0400 Body mass index (BMI) [Ratio] 49.1 kg/m2 Dr. Octavio Reza Work Phone: [facility] 11-07-2023 00:01-0400 Body weight [address] Octavio Reza Work Phone: 7(767)176-154914 [place] [address] 11-06-2023 19:26-0400 Body height 175.[address] Octavio Reza Work Phone: [facility] 10-31-2023 08:12-0400 Body temperature 97.3 [degF] Tamika Morris MD Work Phone: [facility] 10-31-2023 08:12-0400 Body weight 156.04 kg Tamika Morris MD Work Phone: [facility] 10-31-2023 08:12-0400 Diastolic blood pressure 82 mm[Hg] Tamika Morris MD Work Phone: [facility] 10-31-2023 08:12-0400 Heart rate 59 /min Tamika Morris MD Work Phone: [facility] 10-31-2023 08:12-0400 Respiratory rate 18 /min Tamika Morris MD Work Phone: [facility] 10-31-2023 08:12-0400 SaO2% (BldA) [Mass fraction] 96 % Tamika Morris MD Work Phone: [facility] 10-31-2023 08:12-0400 Systolic blood pressure 142 mm[Hg] Tamika Morris MD Work Phone: [facility] 10-28-2023 21:12-0400 Body temperature 97.7 [degF] Dr. Octavio Reza Work Phone: [facility] 10-28-2023 21:12-0400 Diastolic blood pressure 58 mm[Hg] Dr. Octavio Reza Work Phone: 9(990)779-593114 [place] [address] 10-28-2023 21:12-0400 Heart rate 63 /min Dr. Octavio Reza Work Phone: 2(073)630-537314 [place] [address] 10-28-2023 21:12-0400 Respiratory rate 16 /min Dr. Octavio Reza Work Phone: 2(230)809-682014 [place] [address] 10-28-2023 21:12-0400 SaO2% (BldA) [Mass fraction] 95 % Dr. Octavio Reza Work Phone: [facility] 10-28-2023 21:12-0400 Systolic blood pressure 152 mm[Hg] Dr. Octavio Reza Work Phone: [facility] 10-28-2023 19:23-0400 Body mass index (BMI) [Ratio] 50.8 kg/m2 Dr. Octavio Reza Work Phone: 0(137)467-447214 [place] [address] 10-28-2023 19:23-0400 Body weight [address] Octavio Reza Work Phone: 6(347)101-111914 [place] [address] 10-28-2023 18:51-0400 Body height 175.[address] Octavio Reza Work Phone: 7(213)375-984114 [place] [address] 10-01-2023 16:37-0400 Body temperature 98 [degF] Dr. Octavio Reza Work Phone: 5(766)938-786514 [place] [address] 10-01-2023 16:37-0400 Diastolic blood pressure 65 mm[Hg] Dr. Octavio Reza Work Phone: 9(298)085-983614 [place] [address] 10-01-2023 16:37-0400 Heart rate 72 /min Dr. Octavio Reza Work Phone: 9(088)545-910914 [place] [address] 10-01-2023 16:37-0400 Respiratory rate 18 /min Dr. Octavio Reza Work Phone: 3(440)261-510014 [place] [address] 10-01-2023 16:37-0400 SaO2% (BldA) [Mass fraction] 95 % Dr. Octavio Reza Work Phone: 1(994)127-561114 [place] [address] 10-01-2023 16:37-0400 Systolic blood pressure 142 mm[Hg] Dr. Octavio Reza Work Phone: 9(377)425-837684 [place] [address] 10-01-2023 14:35-0400 Body mass index (BMI) [Ratio] 49.8 kg/m2 Dr. Octavio Reza Work Phone: 6(355)895-616884 [place] [address] 10-01-2023 14:35-0400 Body weight 153.[address] Octavio Reza Work Phone: 9(468)911-365384 [place] [address] 10-01-2023 14:33-0400 Body height 175.[address] Octavio Reza Work Phone: 3(762)128-831484 [place] [address] 09-29-2023 09:36-0400 Body mass index (BMI) [Ratio] 49.8 kg/m2 Dr. Octavio Reza Work Phone: 4(910)665-282214 [place] [address] 09-29-2023 09:36-0400 Body weight 153.[address] Octavio Reza Work Phone: 6(657)543-063314 [place] [address] 09-29-2023 09:36-0400 Diastolic blood pressure 66 mm[Hg] Dr. Octavio Reza Work Phone: 7(008)399-299814 [place] [address] 09-29-2023 09:36-0400 Respiratory rate 16 /min Dr. Octavio Reza Work Phone: 2(668)933-792614 [place] [address] 09-29-2023 09:36-0400 Systolic blood pressure 143 mm[Hg] Dr. Octavio Reza Work Phone: [facility] 09-22-2023 13:02-0500 Body weight 155.13 kg Christine Bianchi MD Work Phone: [facility] 09-22-2023 13:02-0500 Diastolic blood pressure 68 mm[Hg] Christine Bianchi MD Work Phone: [facility] 09-22-2023 13:02-0500 Heart rate 65 /min Christine Bianchi MD Work Phone: [facility] 09-22-2023 13:02-0500 Respiratory rate 18 /min Christine Bianchi MD Work Phone: [facility] 09-22-2023 13:02-0500 SaO2% (BldA) [Mass fraction] 96 % Christine Bianchi MD Work Phone: [facility] 09-22-2023 13:02-0500 Systolic blood pressure 136 mm[Hg] Christine Bianchi MD Work Phone: [facility] 09-21-2023 03:44-0500 Body temperature 97.7 [degF] [facility] 09-21-2023 03:44-0500 Diastolic blood pressure 79 mm[Hg] [facility] 09-21-2023 03:44-0500 Heart rate 64 /min [facility] 09-21-2023 03:44-0500 Respiratory rate 13 /min [facility] 09-21-2023 03:44-0500 SaO2% (BldA) [Mass fraction] 97 % [facility] 09-21-2023 03:44-0500 Systolic blood pressure 120 mm[Hg] [facility] 09-21-2023 00:22-0500 Body height 175.26 cm [facility] 09-21-2023 00:22-0500 Body mass index (BMI) [Ratio] 50.7 kg/m2 [facility] 09-21-2023 00:22-0500 Body weight 155.9 kg [facility] 09-16-2023 20:17-0500 Body temperature 97.2 [degF] [facility] 09-16-2023 20:17-0500 Diastolic blood pressure 58 mm[Hg] [facility] 09-16-2023 20:17-0500 Heart rate 59 /min [facility] 09-16-2023 20:17-0500 Respiratory rate 18 /min [facility] 09-16-2023 20:17-0500 SaO2% (BldA) [Mass fraction] 98 % [facility] 09-16-2023 20:17-0500 Systolic blood pressure 116 mm[Hg] [facility] 09-16-2023 17:54-0500 Body height 175.26 cm [facility] 09-16-2023 17:54-0500 Body mass index (BMI) [Ratio] 49 kg/m2 [facility] 09-16-2023 17:54-0500 Body weight 150.59 kg [facility] 09-01-2023 12:05-0500 Body weight 156.49 kg Lydia Grande SANDSTONE SPLITTER.COMMUNITY DEVELOPMENT COORDINATOR Work Phone: [facility] 09-01-2023 12:05-0500 Diastolic blood pressure 74 mm[Hg] Lydia Grande SANDSTONE SPLITTER.COMMUNITY DEVELOPMENT COORDINATOR Work Phone: [facility] 09-01-2023 12:05-0500 Heart rate 64 /min Lydia Grande SANDSTONE SPLITTER.COMMUNITY DEVELOPMENT COORDINATOR Work Phone: [facility] 09-01-2023 12:05-0500 Respiratory rate 16 /min Lydia Grande SANDSTONE SPLITTER.COMMUNITY DEVELOPMENT COORDINATOR Work Phone: [facility] 09-01-2023 12:05-0500 SaO2% (BldA) [Mass fraction] 96 % Lydia Grande SANDSTONE SPLITTER.COMMUNITY DEVELOPMENT COORDINATOR Work Phone: [facility] 09-01-2023 12:05-0500 Systolic blood pressure 144 mm[Hg] Lydia Grande SANDSTONE SPLITTER.COMMUNITY DEVELOPMENT COORDINATOR Work Phone: [facility] 06-23-2023 08:53-0500 Diastolic blood pressure 84 mm[Hg] Tierney Nunez PA-C Work Phone: [facility] 06-23-2023 08:53-0500 Heart rate 57 /min Tierney Cheekone PA-C Work Phone: [facility] 06-23-2023 08:53-0500 Respiratory rate 17 /min Tierney Mayra PA-C Work Phone: [facility] 06-23-2023 08:53-0500 SaO2% (BldA) [Mass fraction] 96 % Tierney Cheekone PA-C Work Phone: [facility] 06-23-2023 08:53-0500 Systolic blood pressure 122 mm[Hg] Tierney Cheekone PA-C Work Phone: [facility] 05-28-2023 21:52-0500 Diastolic blood pressure 61 mm[Hg] [facility] 05-28-2023 21:52-0500 Heart rate 58 /min [facility] 05-28-2023 21:52-0500 Respiratory rate 16 /min [facility] 05-28-2023 21:52-0500 SaO2% (BldA) [Mass fraction] 95 % [facility] 05-28-2023 21:52-0500 Systolic blood pressure 141 mm[Hg] [facility] 05-28-2023 18:21-0500 Body mass index (BMI) [Ratio] 50.6 kg/m2 [facility] 05-28-2023 18:21-0500 Body weight 155.6 kg [facility] 05-28-2023 18:19-0500 Body temperature 96.5 [degF] [facility] 05-23-2023 14:08-0500 Body temperature 97.2 [degF] Octavio Reza MD Work Phone: [facility] 05-23-2023 14:08-0500 Body weight 154.22 kg Octavio Reza MD Work Phone: [facility] 05-23-2023 14:08-0500 Diastolic blood pressure 82 mm[Hg] Octavio Reza MD Work Phone: [facility] 05-23-2023 14:08-0500 Heart rate 68 /min Octavio Reza MD Work Phone: [facility] 05-23-2023 14:08-0500 Respiratory rate 18 /min Octavio Reza MD Work Phone: [facility] 05-23-2023 14:08-0500 SaO2% (BldA) [Mass fraction] 98 % Octavio Reza MD Work Phone: [facility] 05-23-2023 14:08-0500 Systolic blood pressure 128 mm[Hg] Octavio Reza MD Work Phone: [facility] 05-16-2023 09:30-0400 Body height 176.5 cm Anant Lees MD Work Phone: [facility] 05-16-2023 09:30-0400 Body weight 153.77 kg Anant Lees MD Work Phone: [facility] 05-16-2023 09:30-0400 Diastolic blood pressure 73 mm[Hg] Anant Lees MD Work Phone: [facility] 05-16-2023 09:30-0400 Heart rate 60 /min Anant Lees MD Work Phone: [facility] 05-16-2023 09:30-0400 SaO2% (BldA) [Mass fraction] 97 % Anant Lees MD Work Phone: [facility] 05-16-2023 09:30-0400 Systolic blood pressure 124 mm[Hg] Anant Lees MD Work Phone: [facility] 02-13-2023 19:20-0400 Body temperature 97.8 [degF] Dr. Octavio Reza Work Phone: [facility] 02-13-2023 19:20-0400 Diastolic blood pressure 79 mm[Hg] Dr. Octavio Reza Work Phone: [facility] 02-13-2023 19:20-0400 Heart rate 67 /min Dr. Octavio Reza Work Phone: [facility] 02-13-2023 19:20-0400 Respiratory rate 14 /min Dr. Octavio Reza Work Phone: [facility] 02-13-2023 19:20-0400 SaO2% (BldA) [Mass fraction] 99 % Dr. Octavio Reza Work Phone: [facility] 02-13-2023 19:20-0400 Systolic blood pressure 145 mm[Hg] Dr. Octavio Reza Work Phone: [facility] 02-13-2023 18:16-0400 Body height 175.[address] Octavio Reza Work Phone: [facility] 02-13-2023 18:16-0400 Body mass index (BMI) [Ratio] 49.1 kg/m2 Dr. Octavio Reza Work Phone: [facility] 02-13-2023 18:16-0400 Body weight 151.[address] Octavio Reza Work Phone: [facility] 01-17-2023 13:47-0400 Body temperature 97 [degF] Octavio Reza MD Work Phone: [facility] 01-17-2023 13:47-0400 Diastolic blood pressure 69 mm[Hg] Octavio Reza MD Work Phone: [facility] 01-17-2023 13:47-0400 Heart rate 63 /min Octavio Reza MD Work Phone: [facility] 01-17-2023 13:47-0400 Respiratory rate 18 /min Octavio Reza MD Work Phone: [facility] 01-17-2023 13:47-0400 SaO2% (BldA) [Mass fraction] 96 % Octavio Reza MD Work Phone: [facility] 01-17-2023 13:47-0400 Systolic blood pressure 122 mm[Hg] Octavio Reza MD Work Phone: [facility] 11-22-2022 12:52-0400 Body height 175.[address] Octavio Reza Work Phone: 7(870)739-600284 [place] [address] 11-22-2022 12:52-0400 Body mass index (BMI) [Ratio] 49.1 kg/m2 Dr. Octavio Reza Work Phone: 6(991)353-825984 [place] [address] 11-22-2022 12:52-0400 Body weight 151.[address] Octavio Reza Work Phone: 2(055)001-655484 [place] [address] 11-22-2022 12:52-0400 Diastolic blood pressure 66 mm[Hg] Dr. Octavio Reza Work Phone: 4(141)788-768084 [place] [address] 11-22-2022 12:52-0400 Heart rate 65 /min Dr. Octavio Reza Work Phone: 0(112)195-411384 [place] [address] 11-22-2022 12:52-0400 Inhaled oxygen flow rate 1 L/min Dr. Octavio Reza Work Phone: 9(978)470-585984 [place] [address] 11-22-2022 12:52-0400 Respiratory rate 20 /min Dr. Octavio Reza Work Phone: 8(628)834-020984 [place] [address] 11-22-2022 12:52-0400 SaO2% (BldA) [Mass fraction] 96 % Dr. Octavio Reza Work Phone: 9(569)953-957984 [place] [address] 11-22-2022 12:52-0400 Systolic blood pressure 145 mm[Hg] Dr. Octavio Reza Work Phone: 6(194)095-522084 [place] [address] 11-04-2022 21:00-0400 Diastolic blood pressure 59 mm[Hg] Dr. Octavio Reza Work Phone: 2(796)152-451884 [place] [address] 11-04-2022 21:00-0400 Heart rate 72 /min Dr. Octavio Reza Work Phone: 9(686)876-502784 [place] [address] 11-04-2022 21:00-0400 Inhaled oxygen flow rate 1 L/min Dr. Octavio Reza Work Phone: 2(433)115-872284 [place] [address] 11-04-2022 21:00-0400 Respiratory rate 12 /min Dr. Octavio Reza Work Phone: 5(157)815-816284 [place] [address] 11-04-2022 21:00-0400 SaO2% (BldA) [Mass fraction] 98 % Dr. Octavio Reza Work Phone: 7(202)859-043884 [place] [address] 11-04-2022 21:00-0400 Systolic blood pressure 147 mm[Hg] Dr. Octavio Reza Work Phone: 1(974)619-979584 [place] [address] 11-04-2022 17:59-0400 Body height 175.[address] Octavio Reza Work Phone: 5(814)189-677184 [place] [address] 11-04-2022 17:59-0400 Body mass index (BMI) [Ratio] 49.6 kg/m2 Dr. Octavio Reza Work Phone: 4(713)422-908484 [place] [address] 11-04-2022 17:59-0400 Body temperature 98.3 [degF] Dr. Octavio Reza Work Phone: 7(737)570-298484 [place] [address] 11-04-2022 17:59-0400 Body weight 152.[address] Octavio Reza Work Phone: 4(841)199-159084 [place] [address] 10-11-2022 20:32-0400 Diastolic blood pressure 57 mm[Hg] Dr. Octavio Reza Work Phone: 3(387)593-770514 [place] [address] 10-11-2022 20:32-0400 Heart rate 76 /min Dr. Octavio Reza Work Phone: 1(751)267-186314 [place] [address] 10-11-2022 20:32-0400 Respiratory rate 14 /min Dr. Octavio Reza Work Phone: 3(699)431-019914 [place] [address] 10-11-2022 20:32-0400 SaO2% (BldA) [Mass fraction] 98 % Dr. Octavio Reza Work Phone: 1(940)112-976584 [place] [address] 10-11-2022 20:32-0400 Systolic blood pressure 154 mm[Hg] Dr. Octavio Reza Work Phone: [facility] 10-11-2022 20:00-0400 Inhaled oxygen flow rate 1 L/min Dr. Octavio Reza Work Phone: [facility] 10-11-2022 16:10-0400 Body mass index (BMI) [Ratio] 50.3 kg/m2 Dr. Octavio Reza Work Phone: [facility] 10-11-2022 16:10-0400 Body weight 154.[address] Octavio Reza Work Phone: [facility] 10-11-2022 14:10-0400 Body height 175.[address] Octavio Reza Work Phone: [facility] 10-11-2022 14:10-0400 Body temperature 97.5 [degF] Dr. Octavio Reza Work Phone: [facility] 10-05-2022 12:57-0400 Body height 175.3 cm Davon Narda SANDSTONE SPLITTER.LOCKER ATTENDANT Work Phone: [facility] 10-05-2022 12:57-0400 Body temperature 97.39 [degF] Davon Narda SANDSTONE SPLITTER.LOCKER ATTENDANT Work Phone: [facility] 10-05-2022 12:57-0400 Body weight 151.05 kg Davon Narda SANDSTONE SPLITTER.LOCKER ATTENDANT Work Phone: [facility] 10-05-2022 12:57-0400 Diastolic blood pressure 62 mm[Hg] Davon Narda SANDSTONE SPLITTER.LOCKER ATTENDANT Work Phone: [facility] 10-05-2022 12:57-0400 Heart rate 71 /min Davon Narda SANDSTONE SPLITTER.LOCKER ATTENDANT Work Phone: [facility] 10-05-2022 12:57-0400 Respiratory rate 16 /min Davon Narda SANDSTONE SPLITTER.LOCKER ATTENDANT Work Phone: [facility] 10-05-2022 12:57-0400 SaO2% (BldA) [Mass fraction] 97 % Davon Narda SANDSTONE SPLITTER.LOCKER ATTENDANT Work Phone: [facility] 10-05-2022 12:57-0400 Systolic blood pressure 138 mm[Hg] Davon Wolfe APRN.CNP Work Phone: [facility] 10-01-2022 16:38-0400 Diastolic blood pressure 64 mm[Hg] Dr. Octavio Reza Work Phone: [facility] 10-01-2022 16:38-0400 Systolic blood pressure 143 mm[Hg] Dr. Octavio Reza Work Phone: [facility] 10-01-2022 16:37-0400 Heart rate 75 /min Dr. Octavio Reza Work Phone: [facility] 10-01-2022 16:37-0400 Respiratory rate 16 /min Dr. Octavio Reza Work Phone: [facility] 10-01-2022 16:37-0400 SaO2% (BldA) [Mass fraction] 97 % Dr. Octavio Reza Work Phone: [facility] 10-01-2022 14:21-0400 Body mass index (BMI) [Ratio] 49.4 kg/m2 Dr. Octavio Reza Work Phone: [facility] 10-01-2022 14:21-0400 Body weight 151.[address] Octavio Reza Work Phone: [facility] 10-01-2022 13:50-0400 Body height 175.[address] Octavio Reza Work Phone: [facility] 10-01-2022 13:50-0400 Body temperature 97.5 [degF] Dr. Octavio Reza Work Phone: [facility] 10-01-2022 13:50-0400 Inhaled oxygen flow rate 1 L/min Dr. Octavio Reza Work Phone: [facility] 09-07-2022 18:00-0500 Diastolic blood pressure 64 mm[Hg] Octavio Reza MD Work Phone: [facility] 09-07-2022 18:00-0500 Systolic blood pressure 144 mm[Hg] Octavio Reza MD Work Phone: [facility] 09-07-2022 17:29-0500 Body temperature 97.9 [degF] Octavio Reza MD Work Phone: [facility] 09-07-2022 17:29-0500 Heart rate 77 /min Octavio Reza MD Work Phone: [facility] 09-07-2022 17:29-0500 Respiratory rate 18 /min Octavio Reza MD Work Phone: [facility] 09-07-2022 17:29-0500 SaO2% (BldA) [Mass fraction] 98 % Octavio Reza MD Work Phone: [facility] 08-17-2022 15:59-0500 Body temperature 98.2 [degF] Octavio Reza MD Work Phone: [facility] 08-17-2022 15:59-0500 Diastolic blood pressure 68 mm[Hg] Octavio Reza MD Work Phone: [facility] 08-17-2022 15:59-0500 Heart rate 61 /min Octavio Reza MD Work Phone: [facility] 08-17-2022 15:59-0500 Respiratory rate 18 /min Octavio Reza MD Work Phone: [facility] 08-17-2022 15:59-0500 SaO2% (BldA) [Mass fraction] 98 % Octavio Reza MD Work Phone: [facility] 08-17-2022 15:59-0500 Systolic blood pressure 120 mm[Hg] Octavio Reza MD Work Phone: [facility] 08-02-2022 13:25-0500 Body temperature 98.9 [degF] Dr. Octavio Reza Work Phone: [facility] 08-02-2022 13:25-0500 Diastolic blood pressure 61 mm[Hg] Dr. Octavio Reza Work Phone: 8(081)355-026884 [place] [address] 08-02-2022 13:25-0500 Heart rate 75 /min Dr. Octavio Reza Work Phone: 4(668)423-194584 [place] [address] 08-02-2022 13:25-0500 Inhaled oxygen flow rate 4 L/min Dr. Octavio Reza Work Phone: 6(416)554-505584 [place] [address] 08-02-2022 13:25-0500 Respiratory rate 17 /min Dr. Octavio Reza Work Phone: 8(977)287-997084 [place] [address] 08-02-2022 13:25-0500 SaO2% (BldA) [Mass fraction] 95 % Dr. Octavio Reza Work Phone: 2(160)408-215184 [place] [address] 08-02-2022 13:25-0500 Systolic blood pressure 148 mm[Hg] Dr. Octavio Reza Work Phone: 6(297)349-023984 [place] [address] 08-01-2022 11:18-0500 Body height 176.[address] Octavio Reza Work Phone: 4(196)804-311484 [place] [address] 08-01-2022 11:18-0500 Body weight 149.[address] Octavio Reza Work Phone: 8(316)953-754984 [place] [address] 07-31-2022 23:29-0500 Body mass index (BMI) [Ratio] 47.9 kg/m2 Dr. Octavio Reza Work Phone: 5(749)029-863384 [place] [address] 07-31-2022 22:25-0500 Body temperature 98.6 [degF] Dr. Octavio Reza Work Phone: 9(159)061-919684 [place] [address] Work Phone: 07-31-2022 22:25-0500 Diastolic blood pressure 50 mm[Hg] Dr. Octavio Reza Work Phone: 7(539)802-269214 [place] [address] Work Phone: 07-31-2022 22:25-0500 Heart rate 82 /min Dr. Octavio Reza Work Phone: [facility] Work Phone: 07-31-2022 22:25-0500 Inhaled oxygen flow rate 2 L/min Dr. Octavio Reza Work Phone: [facility] Work Phone: 07-31-2022 22:25-0500 Respiratory rate 20 /min Dr. Octavio Reza Work Phone: [facility] Work Phone: 07-31-2022 22:25-0500 SaO2% (BldA) [Mass fraction] 91 % Dr. Octavio Reza Work Phone: [facility] Work Phone: 07-31-2022 22:25-0500 Systolic blood pressure 142 mm[Hg] Dr. Octavio Reza Work Phone: [facility] Work Phone: 07-31-2022 17:52-0500 Body height 175.[address] Octavio Reza Work Phone: [facility] Work Phone: 07-31-2022 17:52-0500 Body mass index (BMI) [Ratio] 49.1 kg/m2 Dr. Octavio Reza Work Phone: [facility] Work Phone: 07-31-2022 17:52-0500 Body weight 151.[address] Octavio Reza Work Phone: [facility] Work Phone: 07-24-2022 09:31-0500 Inhaled oxygen flow rate 92 L/min Dr. Octavio Reza Work Phone: [facility] 07-24-2022 09:31-0500 SaO2% (BldA) [Mass fraction] 2 % Dr. Octavio Reza Work Phone: [facility] 07-24-2022 09:09-0500 Diastolic blood pressure 49 mm[Hg] Dr. Octavio Reza Work Phone: 7(414)893-352214 [place] [address] 07-24-2022 09:09-0500 Heart rate 84 /min Dr. Octavio Reza Work Phone: 3(000)252-857784 [place] [address] 07-24-2022 09:09-0500 Systolic blood pressure 127 mm[Hg] Dr. Octavio Reza Work Phone: 8(317)530-208284 [place] [address] 07-24-2022 09:03-0500 Body temperature 98.3 [degF] Dr. Octavio Reza Work Phone: 2(484)024-037784 [place] [address] 07-24-2022 09:03-0500 Respiratory rate 18 /min Dr. Octavio Reza Work Phone: 2(462)698-260884 [place] [address] 07-23-2022 15:10-0500 Body height 175.[address] Octavio Reza Work Phone: 9(170)689-358584 [place] [address] Work Phone: 07-23-2022 15:10-0500 Body weight 155.[address] Octavio Reza Work Phone: 8(663)581-662584 [place] [address] 07-19-2022 23:30-0500 Inhaled oxygen concentration 35 % Dr. Octavio Reza Work Phone: 4(171)524-508684 [place] [address] 07-18-2022 02:48-0500 Body mass index (BMI) [Ratio] 50.7 kg/m2 Dr. Octavio Reza Work Phone: 9(196)334-337184 [place] [address] 07-14-2022 14:59-0500 Body temperature 98.3 [degF] Dr. Octavio Reza Work Phone: 6(738)835-395484 [place] [address] 07-14-2022 14:59-0500 Diastolic blood pressure 65 mm[Hg] Dr. Octavio Reza Work Phone: 7(741)251-810784 [place] [address] 07-14-2022 14:59-0500 Heart rate 88 /min Dr. Octavio Reza Work Phone: [facility] 07-14-2022 14:59-0500 Inhaled oxygen flow rate 2 L/min Dr. Octavio Reza Work Phone: 0(791)711-513814 [place] [address] 07-14-2022 14:59-0500 Respiratory rate 18 /min Dr. Octavio Reza Work Phone: 8(164)227-866484 [place] [address] 07-14-2022 14:59-0500 SaO2% (BldA) [Mass fraction] 95 % Dr. Octavio Reza Work Phone: 4(323)155-267214 [place] [address] 07-14-2022 14:59-0500 Systolic blood pressure 153 mm[Hg] Dr. Octavio Reza Work Phone: 0(112)239-786784 [place] [address] 07-12-2022 12:45-0500 Body weight 152.[address] Octavio Reza Work Phone: 7(638)960-281784 [place] [address] 07-10-2022 18:33-0500 Body mass index (BMI) [Ratio] 49.6 kg/m2 Dr. Octavio Reza Work Phone: 1(706)115-984914 [place] [address] 07-10-2022 17:47-0500 Inhaled oxygen flow rate 2 L/min Dr. Octavio Reza Work Phone: [facility] Work Phone: 07-10-2022 17:47-0500 SaO2% (BldA) [Mass fraction] 93 % Dr. Octavio Reza Work Phone: [facility] Work Phone: 07-10-2022 17:25-0500 Body temperature 98.8 [degF] Dr. Octavio Reza Work Phone: [facility] Work Phone: 07-10-2022 17:25-0500 Diastolic blood pressure 57 mm[Hg] Dr. Octavio Reza Work Phone: [facility] Work Phone: 07-10-2022 17:25-0500 Heart rate 94 /min Dr. Octavio Reza Work Phone: [facility] Work Phone: 07-10-2022 17:25-0500 Respiratory rate 28 /min Dr. Octavio Reza Work Phone: [facility] Work Phone: 07-10-2022 17:25-0500 Systolic blood pressure 151 mm[Hg] Dr. Octavio Reza Work Phone: [facility] Work Phone: 07-10-2022 14:16-0500 Body height 175.[address] Octavio Reza Work Phone: [facility] Work Phone: 07-10-2022 14:16-0500 Body mass index (BMI) [Ratio] 49.6 kg/m2 Dr. Octavio Reza Work Phone: [facility] Work Phone: 07-10-2022 14:16-0500 Body weight 152.[address] Octavio Reza Work Phone: [facility] Work Phone: 06-22-2022 10:54-0500 Body mass index (BMI) [Ratio] 51.5 kg/m2 Dr. Octavio Reza Work Phone: [facility] 06-22-2022 10:54-0500 Body weight 158.[address] Octavio Reza Work Phone: [facility] 06-22-2022 10:54-0500 Diastolic blood pressure 70 mm[Hg] Dr. Octavio Reza Work Phone: [facility] 06-22-2022 10:54-0500 Heart rate 58 /min Dr. Octavio Reza Work Phone: [facility] 06-22-2022 10:54-0500 Respiratory rate 18 /min Dr. Octavio Reza Work Phone: [facility] 06-22-2022 10:54-0500 SaO2% (BldA) [Mass fraction] 96 % Dr. Octavio Reza Work Phone: [facility] 06-22-2022 10:54-0500 Systolic blood pressure 129 mm[Hg] Dr. Octavio Reza Work Phone: [facility] 05-18-2022 09:19-0400 Diastolic blood pressure 80 mm[Hg] Octavio Reza MD Work Phone: [facility] 05-18-2022 09:19-0400 Heart rate 55 /min Octavio Reza MD Work Phone: [facility] 05-18-2022 09:19-0400 SaO2% (BldA) [Mass fraction] 98 % Octavio Reza MD Work Phone: [facility] 05-18-2022 09:19-0400 Systolic blood pressure 128 mm[Hg] Octavio Reza MD Work Phone: [facility] 02-15-2022 14:44-0400 Body weight 153.77 kg Lydia Grande SANDSTONE SPLITTER.COMMUNITY DEVELOPMENT COORDINATOR Work Phone: [facility] 02-15-2022 14:44-0400 Diastolic blood pressure 60 mm[Hg] Lydia Grande SANDSTONE SPLITTER.COMMUNITY DEVELOPMENT COORDINATOR Work Phone: [facility] 02-15-2022 14:44-0400 Heart rate 63 /min Lydia Grande SANDSTONE SPLITTER.COMMUNITY DEVELOPMENT COORDINATOR Work Phone: [facility] 02-15-2022 14:44-0400 Respiratory rate 16 /min Lydia Grande SANDSTONE SPLITTER.COMMUNITY DEVELOPMENT COORDINATOR Work Phone: [facility] 02-15-2022 14:44-0400 SaO2% (BldA) [Mass fraction] 96 % Lydia Grande SANDSTONE SPLITTER.COMMUNITY DEVELOPMENT COORDINATOR Work Phone: [facility] 02-15-2022 14:44-0400 Systolic blood pressure 144 mm[Hg] Lydia Grande SANDSTONE SPLITTER.COMMUNITY DEVELOPMENT COORDINATOR Work Phone: [facility] 02-11-2022 15:20-0400 Diastolic blood pressure 74 mm[Hg] Dr. Octavio Reza Work Phone: [facility] Work Phone: 02-11-2022 15:20-0400 Heart rate 63 /min Dr. Octavio Reza Work Phone: [facility] Work Phone: 02-11-2022 15:20-0400 Respiratory rate 16 /min Dr. Octavio Reza Work Phone: [facility] Work Phone: 02-11-2022 15:20-0400 SaO2% (BldA) [Mass fraction] 96 % Dr. Octavio Reza Work Phone: [facility] Work Phone: 02-11-2022 15:20-0400 Systolic blood pressure 154 mm[Hg] Dr. Octavio Reza Work Phone: [facility] Work Phone: 02-11-2022 14:20-0400 Body height 175.[address] Octavio Reza Work Phone: [facility] Work Phone: 02-11-2022 14:20-0400 Body mass index (BMI) [Ratio] 51.9 kg/m2 Dr. Octavio Reza Work Phone: [facility] Work Phone: 02-11-2022 14:20-0400 Body temperature 97 [degF] Dr. Octavio Reza Work Phone: [facility] Work Phone: 02-11-2022 14:20-0400 Body weight 159.[address] Octavio Reza Work Phone: [facility] Work Phone: 01-11-2022 14:59-0400 Body weight 153.32 kg Octavio Reza MD Work Phone: [facility] 01-11-2022 14:59-0400 Diastolic blood pressure 82 mm[Hg] Octavio Reza MD Work Phone: [facility] 01-11-2022 14:59-0400 Heart rate 68 /min Octavio Reza MD Work Phone: [facility] 01-11-2022 14:59-0400 SaO2% (BldA) [Mass fraction] 97 % Octavio Reza MD Work Phone: [facility] 01-11-2022 14:59-0400 Systolic blood pressure 152 mm[Hg] Octavio Reza MD Work Phone: [facility] 12-23-2021 16:18-0400 Body temperature 97.11 [degF] Guillermo Maurer MD Work Phone: [facility] 12-23-2021 16:18-0400 Body weight 151.05 kg Guillermo Maurer MD Work Phone: [facility] 12-23-2021 16:18-0400 Diastolic blood pressure 82 mm[Hg] Guillermo Maurer MD Work Phone: [facility] 12-23-2021 16:18-0400 Heart rate 72 /min Guillermo Maurer MD Work Phone: [facility] 12-23-2021 16:18-0400 Respiratory rate 16 /min Guillermo Maurer MD Work Phone: [facility] 12-23-2021 16:18-0400 Systolic blood pressure 154 mm[Hg] Guillermo Maurer MD Work Phone: [facility] 12-21-2021 11:21-0400 Body mass index (BMI) [Ratio] 50.1 kg/m2 Dr. Octavio Reza Work Phone: [facility] Work Phone: 12-21-2021 11:21-0400 Body weight 153.[address] Octavio Reza Work Phone: [facility] Work Phone: 12-21-2021 11:21-0400 Diastolic blood pressure 78 mm[Hg] Dr. Octavio Reza Work Phone: [facility] Work Phone: 12-21-2021 11:21-0400 Heart rate 59 /min Dr. Octavio Reza Work Phone: [facility] Work Phone: 12-21-2021 11:21-0400 Respiratory rate 18 /min Dr. Octavio Reza Work Phone: [facility] Work Phone: 12-21-2021 11:21-0400 SaO2% (BldA) [Mass fraction] 97 % Dr. Octavio Reza Work Phone: [facility] Work Phone: 12-21-2021 11:21-0400 Systolic blood pressure 160 mm[Hg] Dr. Octavio Reza Work Phone: [facility] Work Phone: 12-17-2021 12:44-0400 Body temperature 97.11 [degF] Wanda Praisler-Wood SANDSTONE SPLITTER.LOCKER ATTENDANT Work Phone: [facility] 12-17-2021 12:44-0400 Diastolic blood pressure 88 mm[Hg] Wanda Praisler-Wood SANDSTONE SPLITTER.LOCKER ATTENDANT Work Phone: [facility] 12-17-2021 12:44-0400 Heart rate 71 /min Wanda Praisler-Wood SANDSTONE SPLITTER.LOCKER ATTENDANT Work Phone: [facility] 12-17-2021 12:44-0400 Respiratory rate 18 /min Wanda Praisler-Wood SANDSTONE SPLITTER.LOCKER ATTENDANT Work Phone: [facility] 12-17-2021 12:44-0400 SaO2% (BldA) [Mass fraction] 96 % Wanda Praisler-Wood SANDSTONE SPLITTER.LOCKER ATTENDANT Work Phone: [facility] 12-17-2021 12:44-0400 Systolic blood pressure 146 mm[Hg] Wanda Phillips APRN.LOCKER ATTENDANT Work Phone: [facility] 10-29-2021 09:00-0400 Diastolic blood pressure 66 mm[Hg] Holland Carmichael MD Work Phone: [facility] 10-29-2021 09:00-0400 Heart rate 80 /min Holland Carmichael MD Work Phone: [facility] 10-29-2021 09:00-0400 Respiratory rate 20 /min Holland Carmichael MD Work Phone: [facility] 10-29-2021 09:00-0400 SaO2% (BldA) [Mass fraction] 93 % Holland Carmichael MD Work Phone: [facility] 10-29-2021 09:00-0400 Systolic blood pressure 142 mm[Hg] Holland Carmichael MD Work Phone: [facility] 10-29-2021 07:58-0400 Body temperature 97.59 [degF] Holland Carmichael MD Work Phone: [facility] 09-11-2021 11:56-0500 Diastolic blood pressure 72 mm[Hg] Octavio Reza MD Work Phone: [facility] 09-11-2021 11:56-0500 Systolic blood pressure 148 mm[Hg] Octavio Reza MD Work Phone: [facility] 09-11-2021 10:47-0500 Heart rate 62 /min Octavio Reza MD Work Phone: [facility] 11-22-2016 10:37-0400 BMI (Body Mass [...] (Body Mass Index) 50.21 kg/m2 Bettina Jarquin [facility] Work Phone: 07-21-2015 13:03-0500 BP Diastolic 70 mm[Hg] Bettina Vaca RN [facility] Work Phone: 07-21-2015 13:03-0500 BP Systolic 146 mm[Hg] Bettina Vaca RN [facility] Work Phone: 07-21-2015 13:03-0500 BSA (Body Surface Area) 2.65 m2 Bettina Vaca RN [facility] Work Phone: 07-21-2015 13:03-0500 Pulse (Heart Rate) 64 /min Bettina Vaca RN [facility] Work Phone: 07-21-2015 13:03-0500 Respiratory Rate 14 /min Bettina [facility] Work Phone: 07-21-2015 13:03-0500 Weight 158.76 kg Bettina Vaca RN [facility] Work Phone: 01-06-2015 15:20-0400 BMI (Body Mass Index) Bettina Jarquin [facility] Work Phone: 03-15-2012 13:57-0400 Height 177.8 cm Bettina [facility] Work Phone: Encounters Encounter Date Encounter Type Care Provider Facility Start: 04-02-2025 ambulatory [facility] Start: 03-29-2025 End: 03-29-2025 Telephone encounter Arleen Milan APRN.LOCKER ATTENDANT Work Phone: [facility] [place] Comment on above: Results Start: 03-26-2025 End: 03-26-2025 ambulatory OCTAVIO REZA Facility:[facility] Start: 03-25-2025 End: 03-25-2025 Nutrition therapy Sergo Perez RD Work Phone: Endocrinology Comment on above: Medical Nutrition Th gloriapy (Type 1 Diabetes) Start: 03-25-2025 End: 03-25-[address] Work Phone: Endocrinology Start: 03-22-2025 End: 03-22-2025 Telephone encounter Octavio Reza MD Work Phone: [facility] [place] Comment on above: Results Start: 03-19-2025 End: 03-19-2025 Office outpatient visit 25 minutes Arleen Milan APRN.LOCKER ATTENDANT Work Phone: [facility] [place] Comment on above: Facial flushing (Sangeeta rosette Dx); Essential (primary) hypertension Start: 03-19-2025 End: 03-19-2025 ambulatory ARLEEN MILAN Facility:[facility] Start: 03-14-2025 End: 03-14-2025 ambulatory Octavio Reza MD Work Phone: [facility] [place] Comment on above: Constipation Start: 03-12-2025 End: 03-13-2025 Telephone encounter Octavio Reza MD Work Phone: [facility] [place] Comment on above: Orders Start: 03-07-2025 End: 03-07-2025 ambulatory Octavio Reza MD Work Phone: [facility] Start: 03-07-2025 End: 03-07-2025 Patient encounter procedure Octavio Reza MD Work Phone: [facility] Comment on above: Population Health Na vigation Outreach ([employer] [facility]/) Start: 02-28-2025 End: 02-28-2025 Telephone encounter Renetta Mcgee APRN.LOCKER ATTENDANT Work Phone: Endocrinology Comment on above: Patient Question; Me dication Problem Start: 02-25-2025 End: 02-25-2025 ambulatory OCTAVIO REZA Facility:[facility] Start: 02-25-2025 End: 02-25-2025 Patient encounter procedure Charis Lucas [facility] Work Phone: [facility] Comment on above: Type I diabetes chrissy itus with manifestations (HCC) (Primary Dx) Start: 02-25-2025 End: 02-25-2025 Telemedicine consultation with patient Charis Lucas [facility] Work Phone: [facility] Start: 02-06-2025 End: 02-06-2025 Patient encounter procedure Renetta Mcgee APRN.LOCKER ATTENDANT Work Phone: Endocrinology Comment on above: Diabetes mellitus ty pe 1, controlled, without complications (HCC) (Primary Dx); 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); Charcot foot due to diabetes mellitus Start: 02-06-2025 End: 02-06-2025 ambulatory RENETTA MCGEE Facility:[facility] Start: 01-30-2025 End: 01-30-2025 Telephone encounter Renetta Mcgee APRN.FABIO Work Phone: Endocrinology Comment on above: Patient Question Start: 01-29-2025 End: 01-29-2025 Patient encounter procedure Davon Wolfe APRN.LOCKER ATTENDANT Work Phone: [facility] [place] Comment on above: Type 1 diabetes chrissy itus with hyperglycemia (HCC) (Primary Dx); Anxiety; Slow transit constipation; Essential (primary) hypertension; Gastroesophageal reflux disease without esophagitis; Class 3 severe obesity due to excess calories with body mass index (BMI) of 40.0 to 44.9 in adult, unspecified whether serious comorbidity present (HCC) Start: 01-29-2025 End: 01-29-2025 ambulatory DAVON WOLFE Facility:[facility] Start: 01-25-2025 End: 01-25-2025 Emergency department patient visit Dr. Octavio Reza MD Work Phone: -Emergency Department Work Phone: Start: 01-15-2025 End: 01-15-2025 ambulatory SELF Facility:[facility] Start: 01-15-2025 End: 01-15-2025 Patient encounter procedure Octavio Reza MD Work Phone: [facility] [place] Comment on above: Medicare annual well ness visit, subsequent (Primary Dx); 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); Primary insomnia; Essential hypertension; Vitamin D deficiency; Encounter for immunization; Class 3 severe obesity due to excess calories with body mass index (BMI) of 40.0 to 44.9 in adult, unspecified whether serious comorbidity present (HCC) Start: 01-14-2025 End: 01-14-2025 Patient encounter procedure Jae Lee NP-C -[facility] Work Phone: Start: 01-14-2025 End: 01-14-2025 Jae Lee FOLDER MACHINE ADJUSTER-C -[facility] Work Phone: Start: 01-14-2025 End: 01-14-[address] Octavio Reza MD Work Phone: -[facility] Start: 01-08-2025 End: 01-08-2025 ambulatory OCTAVIO REZA Facility:[facility] Start: 01-04-2025 End: 01-04-2025 Dr. Zay Juan DO -Emergency Departme nt Work Phone: Start: 01-04-2025 End: 01-04-2025 Emergency department patient visit Dr. Octavio Reza MD Work Phone: -Emergency Department Work Phone: Start: 12-19-2024 End: 12-19-2024 Dr. Abdulaziz Stratton MD -Emergency Departmen t Work Phone: Start: 12-19-2024 End: 12-19-2024 Emergency department patient visit Dr. Octavio Reza MD Work Phone: -Emergency Department Work Phone: Start: 12-19-2024 End: 12-21-2024 Telephone encounter Renetta C Everardo CHRISTIAN Work Phone: Endocrinology Comment on above: Patient Update; Retu rning Patient's Call Start: 12-18-2024 End: 12-18-2024 ambulatory OCTAVIO REZA Facility:[facility] Start: 12-18-2024 End: 12-18-2024 Patient encounter procedure Charis Flannerygamalielniranjan [facility] Work Phone: [facility] Comment on above: Type I diabetes chrissy itus with manifestations (HCC) (Primary Dx); 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) Start: 12-18-2024 End: 12-18-2024 Telemedicine consultation with patient Charis Saxenaginetteniranjan [facility] Work Phone: [facility] Start: 12-14-2024 End: 12-14-2024 Telephone encounter Octavio Reza MD Work Phone: [facility] [place] Comment on above: Patient Question Start: 12-12-2024 End: 12-12-2024 Telephone encounter Octavio Reza MD Work Phone: [facility] [place] Comment on above: Patient Question; Lo w heart rate Refill Request Start: 11-29-2024 End: 11-29-2024 Dr. Serg Solis MD -Emergency Departmen t Work Phone: Start: 11-29-2024 End: 11-29-2024 Emergency department patient visit Dr. Octavio Reza MD Work Phone: -Emergency Department Work Phone: Start: 11-15-2024 End: 11-15-2024 Patient encounter procedure [facility] Work Phone: Start: 11-15-2024 End: 11-15-2024 Arlei LOWRY -[facility] Work Phone: Start: 11-15-2024 End: 11-15-2024 ambulatory Octavio Reza Facility:[facility] Start: 11-07-2024 End: 11-07-2024 ambulatory Eliza Gilliland RN Work Phone: [employer] Comment on above: Primary Care Coordin ator- Other (CDM chart review) Start: 11-06-2024 End: 11-06-2024 [facility] Start: 11-06-2024 End: 11-06-2024 Patient encounter procedure Charis Lucas [facility] Work Phone: [facility] Comment on above: Type I diabetes chrissy itus with manifestations (HCC) (Primary Dx) Start: 11-06-2024 End: 11-06-2024 Telemedicine consultation with patient Charis Lucas [facility] Work Phone: [facility] Start: 11-03-2024 End: 11-03-2024 Dr. Zay Juan DO -Emergency Departme nt Work Phone: Start: 11-03-2024 End: 11-03-2024 Emergency department patient visit Dr. Octavio Reza MD Work Phone: -Emergency Department Work Phone: Start: 10-31-2024 End: 10-31-2024 Patient encounter procedure Renetta Mcgee SANDSTONE SPLITTER.LOCKER ATTENDANT Work Phone: Endocrinology Comment on above: Type I diabetes chrissy itus with manifestations (HCC); Charcot foot due to diabetes mellitus Start: 10-31-2024 End: 10-31-2024 ambulatory RENETTA MCGEE Facility:[facility] Start: 10-29-2024 End: 10-29-2024 Telephone encounter Renetta Mcgee SANDSTONE SPLITTER.LOCKER ATTENDANT Work Phone: Endocrinology Comment on above: Patient Update (Ongo ing high blood sugars) Start: 10-24-2024 End: 10-24-2024 Dr. Benjamín Stanford DO -Emergency Departmen t Work Phone: Start: 10-24-2024 End: 10-24-2024 Emergency department patient visit Dr. Octavio Reza MD Work Phone: -Emergency Department Work Phone: Start: 10-19-2024 End: 10-22-2024 ambulatory Octavio Reza MD Work Phone: [facility] [place] Comment on above: High Blood Sugar; le ft leg pain Start: 10-19-2024 End: 10-22-2024 Telephone encounter Renetta Mcgee APRN.LOCKER ATTENDANT Work Phone: Endocrinology Comment on above: Patient Question; Re questing a call back from nurse; Returning Patient's Call Start: 10-19-2024 End: 10-19-2024 Dr. Holland Sanches DO -Emergency [facility] nt Work Phone: Start: 10-19-2024 End: 10-19-2024 Emergency department patient visit Dr. Octavio Reza MD Work Phone: -Emergency Department Work Phone: Start: 10-15-2024 End: 10-15-2024 ambulatory SELF Facility:[facility] Start: 10-15-2024 End: 10-15-2024 Office outpatient visit 25 minutes Octavio Reza MD Work Phone: [facility] [place] Comment on above: Type 1 diabetes chrissy itus with Charcot joint of foot (HCC) (Primary Dx); Primary insomnia; Anxiety state; Vitamin D deficiency; Constipation, unspecified constipation type; Psoriasis of scalp; Seborrheic dermatitis Start: 10-04-2024 End: 10-04-2024 Telephone encounter Lydia Grande APRN.CNS Work Phone: [facility] [place] Comment on above: Constipation Start: 10-01-2024 End: 10-01-2024 ambulatory OCTAVIO REZA Facility:[facility] Start: 09-27-2024 End: 10-01-2024 Telephone encounter Octavio Reza MD Work Phone: [facility] [place] Comment on above: Patient Question Start: 09-26-2024 End: 09-26-2024 ambulatory OCTAVIO REZA Facility:[facility] Start: 09-26-2024 End: 09-26-2024 Office outpatient visit 25 minutes Octavio Reza MD Work Phone: [facility] [place] Comment on above: Acute diarrhea (Prim nancy Dx); 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 Abdulaziz Stratton MD -Emergency Departmen t Work Phone: Start: 09-23-2024 End: 09-23-2024 Emergency department patient visit Dr. Octavio Reza MD Work Phone: -Emergency Department Work Phone: Start: 09-23-2024 End: 09-23-2024 ambulatory Susana Fuentes RN NURSE INFORMATION TECHNOLOGY AUDIT MANAGER Start: 09-23-2024 End: 09-23-2024 Patient encounter procedure Ssuana Fuentes RN NURSE INFORMATION TECHNOLOGY AUDIT MANAGER Comment on above: Clinical Update Start: 09-21-2024 End: 09-21-2024 ambulatory Tere Mcgrath RN NURSE INFORMATION TECHNOLOGY AUDIT MANAGER Comment on above: High Blood Sugar Start: 09-21-2024 End: 09-21-2024 Telephone encounter Octavio Reza MD Work Phone: [facility] [place] Comment on above: Patient Update Start: 09-21-2024 End: 09-21-2024 Dr. Holland Sanches DO -Emergency Departme nt Work Phone: Start: 09-21-2024 End: 09-21-2024 Emergency department patient visit Dr. Octavio Reza MD Work Phone: -Emergency Department Work Phone: Start: 09-20-2024 End: 09-20-2024 Dr. Lars Dahl DO -Emergency Departmen t Work Phone: Start: 09-20-2024 End: 09-20-2024 Emergency department patient visit Dr. Octavio Reza MD Work Phone: -Emergency Department Work Phone: Start: 09-13-2024 End: 09-13-2024 ambulatory Tierney Sun RN NURSE INFORMATION TECHNOLOGY AUDIT MANAGER Start: 09-13-2024 End: 09-13-2024 Patient encounter procedure Tierney Sun RN NURSE INFORMATION TECHNOLOGY AUDIT MANAGER Comment on above: Clinical Update Start: 09-10-2024 End: 09-11-2024 Telephone encounter Charis Lucas [facility] Work Phone: [facility] Comment on above: Patient Update Start: 09-10-2024 End: 09-10-2024 ambulatory OCTAVIO REZA Facility:[facility] Start: 09-10-2024 End: 09-10-2024 Patient encounter procedure Charis Lucas [facility] Work Phone: [facility] Comment on above: Type I diabetes chrissy itus with manifestations (HCC) (Primary Dx) Start: 09-10-2024 End: 09-10-2024 Telemedicine consultation with patient Charis Lucas [facility] Work Phone: [facility] Start: 09-06-2024 End: 09-06-2024 Telephone encounter Octavio Reza MD Work Phone: [facility] [place] Comment on above: Patient Question Start: 09-04-2024 End: 09-05-2024 Telephone encounter Renetta Mcgee SANDSTONE SPLITTER.LOCKER ATTENDANT Work Phone: Endocrinology Comment on above: Results Start: 08-20-2024 End: 08-20-2024 ambulatory RENETTA MCGEE Facility:[facility] Start: 08-17-2024 End: 08-17-2024 [facility] [place] [facility] Start: 08-17-2024 End: 08-17-2024 Patient encounter procedure [facility] [place] [facility] Comment on above: Population Health Na vigation [...] Octavio Reza MD Work Phone: [facility] [place] Comment on above: Patient Question Start: 07-31-2024 End: 07-31-2024 ambulatory OCTAVIO REZA Facility:[facility] Start: 07-31-2024 End: 07-31-2024 Patient encounter procedure Chairs Lucas [facility] Work Phone: [facility] Comment on above: Type I diabetes chrissy itus with manifestations (HCC) (Primary Dx) Start: 07-31-2024 End: 07-31-2024 Telemedicine consultation with patient Charis Lucas [facility] Work Phone: [facility] Start: 07-28-2024 End: 07-28-2024 Emergency department patient visit Dr. Lras Dahl DO -Emergency Department Work Phone: Start: 07-27-2024 End: 07-27-2024 Refill Octavio Reza MD Work Phone: [facility] [place] Comment on above: Refill Request Start: 07-19-2024 End: 07-19-2024 Telephone encounter Octavio Reza MD Work Phone: [facility] [place] Comment on above: Patient Question Start: 07-16-2024 End: 07-16-2024 Telephone encounter Octavio Reza MD Work Phone: [facility] [place] Comment on above: Rx Refills Start: 07-03-2024 End: 07-03-2024 [facility] Start: 07-03-2024 End: 07-03-2024 Office outpatient visit 25 minutes Lydia Grande SANDSTONE SPLITTER.COMMUNITY DEVELOPMENT COORDINATOR Work Phone: [facility] [place] Comment on above: Essential hypertensi on (Primary Dx); 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 Eduardo Paz DO -Emergency Department Work Phone: Start: 06-29-2024 End: 07-02-2024 Telephone encounter Octavio Reza MD Work Phone: [facility] [place] Comment on above: Patient Update Start: 06-28-2024 End: 06-28-2024 ambulatory OCTAVIO D TALAMPAS Facility:[facility] Start: 06-26-2024 End: 06-28-2024 Telephone encounter Octavio Reza MD Work Phone: [facility] [place] Comment on above: Patient Update Start: 06-21-2024 End: 06-21-2024 ambulatory Rama Mckeon MA [facility] Start: 06-21-2024 End: 06-21-2024 Patient encounter procedure Rama Mckeon MA [facility] Comment on above: Population Health Na vigation Outreach (AWV INITIATIVE) Start: 06-19-2024 End: 06-19-2024 [facility] Start: 06-19-2024 End: 06-20-2024 Patient encounter procedure Charis Saxenaclau [facility] Work Phone: [facility] Comment on above: Type I diabetes chrissy itus with manifestations (HCC) (Primary Dx) Refill Request Start: 06-19-2024 End: 06-19-2024 Telemedicine consultation with patient Charis Lucas [facility] Work Phone: [facility] Start: 06-13-2024 End: 06-13-[address] Miguel Angel Bosch MD -[facility] Work Phone: Start: 06-13-2024 End: 06-13-2024 ambulatory Octavio D Talampas Facility:[facility] Start: 06-11-2024 End: 06-11-2024 ambulatory OCTAVIO D TALAMPAS Facility:[facility] Start: 06-11-2024 End: 06-11-2024 Office outpatient visit [...] Work Phone: Start: 06-07-2024 ambulatory Ray Maradiaga Facility:[facility] Start: 06-07-2024 Non-patient / Non-visit Dr. Ray up MD -[facility] Start: 06-07-2024 ambulatory Octavio Reza Facilit y:[facility] Start: 06-07-2024 Non-patient / Non-visit Dr. Che Bosch MD -[facility] Work Phone: Start: 06-07-2024 ambulatory Octavio Vinesbeka Facilit y:[facility] Start: 06-07-2024 End: 06-07-2024 Patient encounter procedure Areli Estevez PA -Cardiovascular Services Work Phone: Start: 06-06-2024 End: 06-07-2024 ambulatory Federica Alonzo RN Work Phone: [employer] Comment on above: Bi-weekly outreach ( Recurring) for Chronic Disease Management Start: 05-31-2024 End: 06-01-2024 Telephone encounter Octavio Reza MD Work Phone: [facility] [place] Comment on above: checking if lab work due Start: 05-27-2024 End: 05-27-2024 Emergency department patient visit Dr. Lars Dahl DO -Emergency Department Work Phone: Start: 05-25-2024 End: 06-27-2024 ambulatory Renetta Mcgee SANDSTONE SPLITTERAltafLOCKER ATTENDANT Work Phone: Endocrinology Comment on above: elevated blood gluco se Start: 05-25-2024 End: 05-25-2024 Telephone encounter Renetta Mcgee SANDSTONE SPLITTER.LOCKER ATTENDANT Work Phone: Endocrinology Comment on above: Patient Update Start: 05-25-2024 End: 05-25-2024 Emergency department patient visit Dr. Reyna Monzon DO -Emergency Department Work Phone: Start: 05-23-2024 End: 05-23-2024 ambulatory RENETTA MCGEE Facility:[facility] Start: 05-23-2024 End: 05-23-2024 Patient encounter procedure Renetta Mcgee SANDSTONE SPLITTER.LOCKER ATTENDANT Work Phone: Endocrinology Comment on above: Diabetes mellitus ty pe 1, controlled, without complications (HCC) (Primary Dx) Start: 05-22-2024 End: 05-22-2024 ambulatory Federica Alonzo RN Work Phone: [employer] Comment on above: Bi-weekly outreach ( Recurring) for Chronic Disease Management Start: 05-18-2024 End: 05-18-2024 Emergency department patient visit Holland Sanches Facility:[facility] Start: 05-10-2024 End: 05-11-2024 Telephone encounter Renetta Mcgee SANDSTONE SPLITTER.LOCKER ATTENDANT Work Phone: Endocrinology Comment on above: Patient Update Start: 05-07-2024 End: 05-07-2024 ambulatory DAVON WOLFE Facility:[facility] Start: 05-07-2024 End: 05-07-2024 Patient encounter procedure Davon Wolfe SANDSTONE SPLITTER.LOCKER ATTENDANT Work Phone: [facility] [place] Comment on above: Dental abscess (Prim nancy Dx); 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); PAC (premature atrial contraction); PVC (premature ventricular contraction) Start: 05-04-2024 End: 05-04-2024 Emergency department patient visit Octavio Reza Facility:[facility] Start: 04-24-2024 End: 04-24-2024 ambulatory [facility] Jodi [facility] Facility:[facility] Start: 04-24-2024 End: 04-24-2024 Patient encounter procedure Charis Lucas [facility] Work Phone: [facility] Comment on above: Type I diabetes chrissy itus with manifestations (HCC) (Primary Dx); Diabetes mellitus type 1, controlled, without complications (HCC) Start: 04-24-2024 End: 04-24-2024 Telemedicine consultation with patient Charis Lucas [facility] Work Phone: [facility] Start: 04-19-2024 End: 04-19-2024 ambulatory Federica Alonzo RN Work Phone: [employer] Comment on above: Bi-weekly outreach ( Recurring) for Chronic Disease Management Start: 04-18-2024 End: 04-18-2024 Subsequent hospital visit by physician Dominic [facility] Work Phone: Radiology Comment on above: Acute cough [R05.1] Start: 04-18-2024 End: 04-18-2024 ambulatory SMILEY PRIETO Facility:[facility] Start: 04-18-2024 End: 04-18-2024 Patient encounter procedure Smiley Prieto SANDSTONE SPLITTER.LOCKER ATTENDANT [facility] Comment on above: Acute cough (Primary Dx); URI, acute Start: 04-10-2024 End: 04-10-2024 ambulatory OCTAVIO REZA Facility:[facility] Start: 04-10-2024 End: 04-10-2024 Patient encounter procedure Charis Lucas [facility] Work Phone: [facility] Comment on above: Type I diabetes chrissy itus with manifestations (HCC) (Primary Dx) Start: 04-10-2024 End: 04-10-2024 Telemedicine consultation with patient Charis Lucas [facility] Work Phone: [facility] Start: 04-09-2024 End: 04-09-2024 Orders Only Renetta Mcgee SANDSTONE SPLITTER.LOCKER ATTENDANT Work Phone: Endocrinology Comment on above: Medical Nutrition Th erapy (Type 1 Diabetes) Start: 04-04-2024 End: 04-04-2024 ambulatory Federica Alonzo RN Work Phone: [employer] Comment on above: Initial enrollment niranjan raza for Chronic Disease Management Start: 03-30-2024 End: 03-30-2024 ambulatory [facility] Work Phone: [facility] Comment on above: Spirometry Start: 03-30-2024 End: 03-30-2024 Patient encounter procedure [facility] Work Phone: [facility] Comment on above: Moderate persistent asthma without complication (Primary Dx); Morbid obesity (HCC); THAIS (obstructive sleep apnea) Start: 03-23-2024 End: 03-23-2024 Refill Octavio Reza MD Work Phone: [facility] [place] Comment on above: Refill Request Start: 03-22-2024 End: 03-22-2024 [address] encounter Sergo Perez RD Work Phone: Endocrinology Start: 03-15-2024 End: 03-15-2024 Telephone encounter Radha Haynes SANDSTONE SPLITTER.LOCKER ATTENDANT Work Phone: Pulmonary Medicine Comment on above: Symbicort needs auth orized Start: 03-14-2024 End: 03-14-2024 ambulatory Lydia Manuel RN Work Phone: [employer] Start: 03-12-2024 End: 03-12-2024 Telephone encounter Octavio Reza MD Work Phone: [facility] [place] Comment on above: Medication Problem Start: 03-07-2024 End: 03-07-2024 Telephone encounter Christine Bianchi MD Work Phone: Pulmonary Medicine Comment on above: Patient Update Start: 03-07-2024 End: 03-07-2024 Office outpatient visit 25 minutes Radha Haynes SANDSTONE SPLITTER.LOCKER ATTENDANT Work Phone: Pulmonary Medicine Comment on above: Mild persistent asth ma without complication (Primary Dx); Shortness of breath Start: 03-06-2024 End: 03-07-2024 Telephone encounter Octavio Reza MD Work Phone: [facility] [place] Comment on above: Medication Problem Start: 03-05-2024 End: 03-05-2024 Telephone encounter Octavio Reza MD Work Phone: [facility] [place] Comment on above: Orders Start: 02-28-2024 End: 02-28-2024 Patient encounter procedure Charis Lucas [facility] [facility] Comment on above: Type I diabetes chrissy itus with manifestations (HCC) (Primary Dx) Start: 02-28-2024 End: 02-28-2024 Telemedicine consultation with patient Charis Lucas [facility] Work Phone: [facility] Start: 02-20-2024 Telephone encounter Octavio carr MD Work Phone: [facility] [place] Comment on above: Medication Problem Start: 02-15-2024 End: 02-15-2024 Patient encounter procedure Renetta C Everardo SANDSTONE SPLITTER.LOCKER ATTENDANT Work Phone: Endocrinology Comment on above: Diabetes mellitus ty pe 1, controlled, without complications (HCC) (Primary Dx) Start: 02-13-2024 End: 02-13-2024 Office outpatient visit [...] serious comorbidity present (HCC); Seborrheic dermatitis Start: 01-25-2024 Telephone encounter Octavio carr MD Work Phone: [facility] [place] Comment on above: Orders (Lab Orders/) Start: 01-18-2024 End: 01-18-2024 Nursing evaluation of patient and report Tawanda Wolff RN Work Phone: Endocrinology Comment on above: Diabetes mellitus ty pe 1, controlled, without complications (HCC) Start: 01-12-2024 End: 01-12-2024 Patient encounter procedure Charis Lucas [facility] Work Phone: [facility] Comment on above: Type I diabetes chrissy itus with manifestations (HCC) (Primary Dx) Start: 01-12-2024 End: 01-12-2024 Telemedicine consultation with patient Charis Lucas [facility] Work Phone: [facility] Start: 01-02-2024 End: 01-02-2024 Patient encounter procedure Tamika Morris MD Work Phone: [facility] Comment on above: Localized swelling, mass and lump, neck (Primary Dx); Cutaneous horn Start: 12-26-2023 Telephone encounter Octavio carr MD Work Phone: [facility] [place] Comment on above: Patient Update and q uestion Start: 12-09-2023 Telephone encounter Renetta marquez SANDSTONE SPLITTER.LOCKER ATTENDANT Work Phone: Endocrinology Comment on above: Patient Question Start: 12-07-2023 Telephone encounter Octavio carr MD Work Phone: [facility] [place] Comment on above: FYI-No Action Needed Start: 12-07-2023 End: 12-07-2023 Patient encounter procedure Renetta Mcgee SANDSTONE SPLITTER.LOCKER ATTENDANT Work Phone: Endocrinology Comment on above: Diabetes mellitus ty pe 1, controlled, without complications (HCC) (Primary Dx); 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 [facility]avio Reza [facility] Work Phone: Start: 11-21-2023 Telephone encounter Davon Krishna er SANDSTONE SPLITTER.LOCKER ATTENDANT Work Phone: [facility] [place] Comment on above: Medication Question (side effects from insulin ) Start: 11-11-2023 Telephone encounter Davon Krishna er SANDSTONE SPLITTER.LOCKER ATTENDANT Work Phone: [facility] [place] Comment on above: Patient Update (call ing in BS) Start: 11-09-2023 End: 11-09-2023 Patient encounter procedure Davon Sotomayorr SANDSTONE SPLITTER.LOCKER ATTENDANT Work Phone: [facility] [place] Comment on above: Type I diabetes chrissy itus with manifestations (HCC) (Primary Dx); Encounter for medication management Start: 11-09-2023 Telephone encounter Octavio carr MD Work Phone: [facility] [place] Comment on above: Appointment Start: 11-07-2023 End: 11-07-2023 Emergency department patient visit Dr. Octavio Reza [facility] Work Phone: Start: 11-07-2023 Telephone encounter Octavio carr MD Work Phone: [facility] [place] Comment on above: Patient Question Start: 11-06-2023 End: 11-07-2023 Emergency department patient visit Dr. Octavio Reza [facility] Work Phone: Start: 11-04-2023 Telephone encounter Octavio carr MD Work Phone: [facility] [place] Comment on above: Blood sugar readings (Copy of recent BS readings attached to this encounter.) Start: 10-31-2023 ambulatory TAMIKA MORRIS [facility] ty:[facility] Start: 10-31-2023 Telephone encounter Tamika Arshad MD Work Phone: [facility] Comment on above: Results (US negative for DVT) Start: 10-31-2023 End: 10-31-2023 Subsequent hospital visit by physician [facility] Comment on above: Pain and swelling of right lower leg [M79.661, M79.89] Start: 10-31-2023 End: 10-31-2023 Patient encounter procedure Tamika Morris MD Work Phone: [facility] Comment on above: Pain and swelling of right lower leg (Primary Dx) Start: 10-28-2023 End: 10-28-2023 Emergency department patient visit Dr. Octavio Reza [facility] Work Phone: Start: 10-21-2023 Telephone encounter Octavio carr MD Work Phone: [facility] [place] Comment on above: Blood Sugar Reading Start: 10-14-2023 Telephone encounter Octavio carr MD Work Phone: [facility] [place] Comment on above: Blood sugar question Start: 10-03-2023 Telephone encounter Octavio carr MD Work Phone: [facility] [place] Comment on above: Medication Question Start: 10-01-2023 End: 10-01-2023 Emergency department patient visit Dr. Octavio Reza [facility] Phone[facility] Work Phone: Start: 09-29-2023 Telephone encounter Octavio carr MD Work Phone: [facility] [place] Comment on above: Orders Start: 09-29-2023 End: 09-29-[address] Octavio Reza Work Phone: [facility] Work Phone: Start: 09-26-2023 Telephone encounter Octavio carr MD Work Phone: [facility] [place] Comment on above: Insurance Authorizat ion (glucose test strips /) Start: 09-23-2023 Refill Octavio coulter MD Work Phone: [facility] [place] Comment on above: Refill Request Start: 09-22-2023 End: 09-22-2023 Patient encounter procedure Christine Bianchi MD Work Phone: Pulmonary Medicine Comment on above: Mild persistent asth ma without complication (Primary Dx); Morbid obesity (HCC); THAIS (obstructive sleep apnea) Start: 09-21-2023 End: 09-21-2023 Office outpatient visit 25 minutes Octavio Reza MD Work Phone: [facility] [place] Comment on above: PSVT (paroxysmal sup raventricular tachycardia) (HCC) (Primary Dx); PAC (premature atrial contraction); Primary insomnia Start: 09-21-2023 End: 09-21-2023 Emergency department patient visit [facility]Emer[facility] Department Work Phone: Start: 09-16-2023 End: 09-16-2023 Non-patient / Non-visit Dr. Octavio Reza Work Phone: [facility] Work Phone: Start: 09-16-2023 End: 09-16-2023 ambulatory [facility] Work Phone: Start: 09-16-2023 End: 09-16-2023 Patient encounter procedure [facility]Cardiov[facility]cul[facility] Work Phone: Start: 09-16-2023 End: 09-16-2023 Emergency department patient visit [facility]Emergency Department Work Phone: Start: 09-05-2023 Telephone encounter Lydia butler SANDSTONE SPLITTER.COMMUNITY DEVELOPMENT COORDINATOR Work Phone: [facility] [place] Comment on above: Results Start: 09-01-2023 End: 09-01-2023 Office outpatient visit 25 minutes Lydia Grande APRN.COMMUNITY DEVELOPMENT COORDINATOR Work Phone: [facility] [place] Comment on above: Polyarthralgia (Prim nancy Dx); 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); Vitamin D deficiency; Pain in finger of both hands Start: 06-23-2023 End: 06-23-2023 ambulatory [facility] Work Phone: [facility] Comment on above: Spirometry Start: 06-23-2023 End: 06-23-2023 Office outpatient visit 25 minutes Tierney Nunez PA-C Work Phone: Pulmonary Medicine Comment on above: Severe persistent as thma without complication (Primary Dx); Obesity, Class III, BMI 40-49.9 (morbid obesity) (HCC) Start: 06-23-2023 End: 06-23-2023 Patient encounter procedure [facility] Work Phone: [facility] Start: 06-14-2023 Refill Octavio coulter MD Work Phone: [facility] [place] Comment on above: Refill Request Start: 05-28-2023 End: 05-28-2023 Emergency department patient visit [facility]Emergency Department Work Phone: Start: 05-23-2023 End: 05-23-2023 Office outpatient visit 40 minutes Octavio Reza MD Work Phone: [facility] [place] Comment on above: Type I diabetes chrissy [...] 03-22-[address] Octavio Reza Work Phone: [facility] Work Phone: Start: 03-22-2023 End: 03-22-[address] Octavio Reza Work Phone: [facility]Outpatient Breast Imaging Work Phone: Start: 02-28-2023 Refill Octavio coulter MD Work Phone: [facility] [place] Comment on above: Refill Request Start: 02-21-2023 Telephone encounter Octavio carr MD Work Phone: [facility] [place] Comment on above: patient asking for 3 D mamm order fax to [facility] Start: 02-13-2023 End: 02-13-2023 Emergency department patient visit Dr. Octavio Reza Work Phone: [facility]Emergency Department Work Phone: Start: 01-17-2023 End: 01-17-2023 Office outpatient visit 40 minutes Octavio Reza MD Work Phone: [facility] [place] Comment on above: Psoriasis of scalp ( Primary Dx); Seborrheic dermatitis; Essential hypertension; Palpitations; History of delirium Start: 12-07-2022 Non-patient / Non-visit Dr. Daniel Reza Work Phone: [facility] Start: 12-07-2022 End: 12-07-[address] Octavio Reza Work Phone: [facility] Work Phone: Start: 12-07-2022 End: 12-07-[address] Octavio Reza Work Phone: [facility]Cardiov[facility] Start: 11-22-2022 End: 11-22-[address] Octavio Reza Work Phone: [facility] Start: 11-04-2022 End: 11-04-2022 Emergency department patient visit Dr. Octavio Reza Work Phone: [facility]Emergency Department Start: 10-11-2022 End: 10-11-2022 Emergency department patient visit Dr. Octavio Reza Work Phone: [facility]Emergency Department Start: 10-05-2022 Telephone encounter Octavio carr MD Work Phone: [facility] [place] Comment on above: Lump on anus Start: 10-05-2022 End: 10-05-2022 Patient encounter procedure Davon Wolfe APRN.LOCKER ATTENDANT Work Phone: [facility] [place] Comment on above: Labial abscess (Prim nancy Dx); Bradycardia Start: 10-01-2022 Telephone encounter Octavio carr MD Work Phone: [facility] [place] Comment on above: Patient Question Start: 10-01-2022 End: 10-01-2022 Emergency department patient visit Dr. Octavio Reza [facility] Start: 09-30-2022 Telephone encounter Octavio carr MD Work Phone: [facility] [place] Comment on above: Medication Problem Start: 09-27-2022 Telephone encounter Trudy rabago APRN.LOCKER ATTENDANT Work Phone: OB/Gynecology Comment on above: Vulvar problem Start: 09-15-2022 Telephone encounter Octavio carr MD Work Phone: [facility] [place] Comment on above: [facility] - medication question Start: 09-14-2022 Telephone encounter Octavio carr MD Work Phone: [facility] [place] Comment on above: Results Start: 09-07-2022 End: [...] Octavio carr MD Work Phone: [facility] [place] Comment on above: [facility] OT POC Start: 08-17-2022 End: 08-17-2022 Office outpatient visit 40 minutes Octavio Reza MD Work Phone: [facility] [place] Comment on above: Pneumonia due to COV ID-19 virus (Primary Dx); Hypoxemia; 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 Daniel Reza Work Phone: [facility] Start: 08-01-2022 Non-patient / Non-visit Dr. Daniel Reza Work Phone: [facility] Start: 07-31-2022 End: 08-02-2022 Evaluation and management of inpatient Dr. Octavio Reza Work Phone: [facility] Start: 07-31-[address] Octavio Reza Work Phone: [facility] Work Phone: Start: 2022 Telephone encounter Octavio carr MD Work Phone: [facility] [place] Comment on above: Patient Update Start: 07-29-2022 Telephone encounter Claudia Shoemaker [facility] Comment on above: Social Work Services Occupational Therapy Plan of Care Start: 07-28-2022 Refill Octavio coulter MD Work Phone: [facility] [place] Comment on above: Refill Request Start: 07-26-2022 Telephone encounter Octavio carr MD Work Phone: [facility] [place] Comment on above: Physical Therapy Damari n of Care; FYI-No Action Needed Patient Update; Orde rs Start: 07-23-2022 Non-patient / Non-visit Dr. Daniel Reza Work Phone: [facility] Start: 07-22-2022 Non-patient / Non-visit Dr. Daniel Reza Work Phone: [facility] Start: 07-21-2022 End: 07-21-2022 Non-patient / Non-visit Dr. Octavio Reza Work Phone: [facility] Start: 07-21-2022 Non-patient / Non-visit Dr. Daniel Reza Work Phone: [facility] Start: 07-20-2022 Non-patient / Non-visit Dr. Daniel Reza Work Phone: [facility] Start: 07-19-2022 Non-patient / Non-visit Dr. Daniel Reza Work Phone: [facility] Start: 07-18-2022 Non-patient / Non-visit Dr. Daniel Reza Work Phone: [facility] Start: 07-18-2022 End: 07-24-2022 Evaluation and management of inpatient Dr. Octavio Reza Work Phone: [facility]Progressive Care Unit Start: 07-16-2022 ambulatory Daina Kaye RN NURSE O N CALL Comment on above: High Blood Sugar Start: 07-16-2022 Telephone encounter Octavio carr MD Work Phone: [facility] [place] Comment on above: Oxygen concern Start: 07-14-2022 Non-patient / Non-visit Dr. Daniel Reza Work Phone: [facility] Start: 07-13-2022 Non-patient / Non-visit Dr. Daniel Reza Work Phone: [facility] Start: 07-12-2022 Non-patient / Non-visit Dr. Daniel Reza Work Phone: [facility] Start: 07-11-2022 Non-patient / Non-visit Dr. Daniel Reza Work Phone: [facility] Start: 07-10-2022 Non-patient / Non-visit Dr. Daniel Reza Work Phone: [facility] Start: 07-10-2022 End: 07-14-2022 Evaluation and management of inpatient Dr. Octavio Reza Work Phone: [facility]-Medical Surgical 3 Start: 06-22-2022 End: 06-22-[address] Octavio Reza Work Phone: [facility] Start: 06-21-2022 Refill Octavio coulter MD Work Phone: [facility] [place] Comment on above: Refill Request Start: 06-07-2022 ambulatory Narendra lombardo [facility] Work Phone: Pharm [employer] Start: 06-07-2022 Telephone encounter Octavio carr MD Work Phone: [facility] [place] Comment on above: Patient Question Start: 05-18-2022 [...] Octavio carr MD Work Phone: [facility] [place] Comment on above: Lab Orders Start: 04-03-2022 ambulatory Latrell Medina RN NURS E INFORMATION TECHNOLOGY AUDIT MANAGER Comment on above: Medication Question Start: 04-03-2022 Telephone encounter Octavio carr MD Work Phone: [facility] [place] Comment on above: Medication Problem Start: 03-31-2022 Refill Octavio coulter MD Work Phone: [facility] [place] Comment on above: Refill Request; Medi cation Problem Start: 03-10-2022 End: 03-10-[address] Octavio Reza Work Phone: [facility] Work Phone: Start: 03-10-2022 End: 03-10-[address] Octavio Reza Work Phone: [facility]Outpatient Breast [facility] Start: 02-15-2022 End: 02-15-2022 Patient encounter procedure Lydia Grande JOSEFINAAltafCOMMUNITY DEVELOPMENT COORDINATOR Work Phone: [facility] [place] Comment on above: Palpitations (Primar y Dx); Encounter for immunization Start: 02-11-2022 End: 02-11-2022 Emergency department patient visit Dr. Octavio Reza Work Phone: [facility]Emergency Department Start: 02-11-2022 Telephone encounter Octavio carr MD Work Phone: [facility] [place] Comment on above: Patient Update Start: 01-20-2022 Telephone encounter Octavio carr MD Work Phone: [facility] [place] Comment on above: Mammogram Order Start: 01-11-2022 End: 01-11-2022 Office outpatient visit 25 minutes Octavio Reza MD Work Phone: [facility] [place] Comment on above: Type I diabetes chrissy itus with manifestations (HCC) (Primary Dx); Lipomas; Vitamin D deficiency; Insomnia, unspecified type Start: 12-23-2021 End: 12-23-2021 Patient encounter procedure Guillermo Maurer MD Work Phone: [facility] [place] Comment on above: Pain of upper abdome n (Primary Dx); Alternating constipation and diarrhea Start: 12-21-2021 End: 12-21-[address] Octavio Reza Work Phone: [facility] Start: 12-17-2021 Telephone encounter Octavio carr MD Work Phone: [facility] [place] Comment on above: Patient Question Start: 12-17-2021 End: 12-17-2021 Subsequent hospital visit by physician Dominic [facility] Work Phone: Radiology Comment on above: Pain of right upper extremity [M79.601] Start: 12-17-2021 End: 12-17-2021 Patient encounter procedure Wanda DejesusNicole CHRISTIAN Work Phone: [facility] Comment on above: Pain of right upper extremity (Primary Dx) Start: 12-16-2021 End: 12-16-2021 Orders Only Christine Bianchi MD Work Phone: Pulmonary Medicine Comment on above: Chest pain, unspecif ied type (Primary Dx) Refill Request Chest pain, unspecif ied type [R07.9] Start: 12-04-2021 Telephone encounter Octavio carr MD Work Phone: [facility] [place] Comment on above: Eye issue Start: 11-06-2021 [...] Octavio carr MD Work Phone: [facility] [place] Comment on above: Patient Question Start: 09-22-2021 Telephone encounter Holland avalos MD Work Phone: General Surgery Comment on above: 10-29-2021 Colon [facility] Start: 09-11-2021 End: 09-11-2021 Office outpatient visit 25 minutes Octavio Reza MD Work Phone: [facility] [place] Comment on above: Type I diabetes chrissy [...] MD Work Phone: Start: 09-20-2024 Dr. Octavio nguyen MD Work Phone: Start: 07-02-2024 Plain chest [...] Hemoglobin A1c/Hemoglobin.total in Blood Renetta C Cioce SANDSTONE SPLITTER.LOCKER ATTENDANT Work Phone: Start: 04-18-2024 Radiologic exam ches t 2 views Smiley Prieto SANDSTONE SPLITTER.LOCKER ATTENDANT Work Phone: Start: 03-30-2024 Nitric oxide gas determination Christine Bianchi MD Work Phone: Start: 11-06-2023 Plain chest [...] humerus minimu m 2 views Wanda Phillips SANDSTONE SPLITTER.LOCKER ATTENDANT Work Phone: Start: 12-16-2021 Radiologic exam ches [...] Activity Detail Author Start: 10-29-2026 Colonoscopy COLONOSCOPY [facility] Start: 10-29-2026 COLORECTAL CANCER SCREENING COLORECTAL CANCER SCREENING [facility] Start: 10-29-2026 Screening for malignant neoplasm of colon [facility] Start: 03-19-2026 Annual PCP Team Chronic Disease Visit Annual PCP Team Chronic Disease Visit [facility] Start: 01-29-2026 Annual PCP Team Chronic Disease Visit Annual PCP Team Chronic Disease Visit [facility] Start: 01-21-2026 End: 01-21-2026 Patient encounter procedure 01/21/2026 8:40 AM EDT Office Visit [facility] [address] [place], [place] [phone] Octavio Reza MD [address] [place], [place] [id number] Medicare Wellness [facility] [place] Comment on above: Medicare Wellness Start: 01-15-2026 Annual PCP Team Chronic Disease Visit Annual PCP Team Chronic Disease Visit [facility] Start: 01-15-2026 Diabetic foot examination Diabetic Foot Exam [facility] Start: 10-15-2025 Annual PCP Team Chronic Disease Visit Annual PCP Team Chronic Disease Visit [facility] Start: 10-01-2025 Hepatitis B screening Urine Albumin:Creatinine Ratio [facility] Start: 09-26-2025 Annual PCP Team Chronic Disease Visit Annual PCP Team Chronic Disease Visit [facility] Start: 08-20-2025 Hepatitis B screening Urine Albumin:Creatinine Ratio [facility] Start: 08-20-2025 Hepatitis B surface antibody level LDL Cholesterol [facility] Start: 07-24-2025 Glaucoma screening Dilated Retinal Exam [facility] Start: 07-23-2025 End: 07-23-2025 Patient encounter procedure [facility] Comment on above: 4 month f/up 4 month f/up *HCC Cl osure* Start: 07-10-2025 Hemoglobin A1c measurement HbA1C [facility] Start: 06-11-2025 Annual PCP Team Chronic Disease Visit Annual PCP Team Chronic Disease Visit [facility] Start: 06-11-2025 BP Controlled (<130/80) BP Controlled (<130/80) [facility] in Start: 05-20-2025 End: 05-20-2025 Patient encounter [facility]20[facility] [address] [id number] Charis Lucas, [facility] [address] [place], [place] [phone] DM f/up [facility] Comment on above: DM f/up Start: 05-08-2025 End: 05-08-2025 Patient encounter procedure 05/08/2025 1:15 PM EDT Office Visit Endocrinology [address] [place], [place] [phone] Renetta Mcgee APRN.LOCKER ATTENDANT [address] [place] [address] 3 month f/u Endocrinology Comment on above: 3 month f/u Start: 05-07-2025 Annual PCP Team Chronic Disease Visit Annual PCP Team Chronic Disease Visit [facility] Start: 04-17-2025 RSV Vaccine (1 - 1-dose 75+ series) RSV Vaccine (1 - 1-dose 75+ series) [facility] Comment on above: Postponed from 2020 (Declined at t his time) Start: 03-25-2025 End: 03-25-2025 ambulatory 03/25/2025 10:00 AM EDT Education Endocrinology [address] [place], [place] [phone] Sergo Perez [address] [phone] Diabetes mellitus type 1, controlled, without complications (HCC) [E10.9] Endocrinology Comment on above: Diabetes mellitus type 1, controlled, wi thout complications (HCC) [E10.9] Start: 03-18-2025 Influenza vaccination [facility] Start: 02-25-2025 End: 02-25-2025 Patient encounter procedure 02/25/2025 9:00 AM EDT [facility] [address] [phone] PrudenciomarianoJani michelleietta, [facility] [address] [place] [address] DM f/up [facility] Comment on above: DM f/up Start: 02-17-2025 Hemoglobin A1c measurement HbA1C [facility] Start: 02-12-2025 Annual PCP Team Chronic Disease Visit Annual PCP Team Chronic Disease Visit [facility] Start: 02-12-2025 Covid-19 Vaccine () Covid-19 Vaccine () [facility] Comment on above: Postponed from 03/18/2023 (Declined at t his time) Start: 02-06-2025 End: 02-06-2025 Patient encounter procedure 02/06/2025 12:15 PM EDT Office Visit Endocrinology [address] [place] [address] Renetta Mcgee, SANDSTONE SPLITTER.LOCKER ATTENDANT [address] [place] [address] 6 MTH F/U Endocrinology Comment on above: 6 MTH F/U Start: 01-26-2025 Hepatitis B surface antibody level LDL Cholesterol [facility] Start: 01-25-2025 [facility] Start: 01-15-2025 End: 01-15-2025 Patient encounter procedure [facility] Comment on above: 4 month follow up Medicare wellness Start: 01-14-2025 Influenza vaccination Influenza Vaccine (#1) [place] [facility] Comment on above: Postponed from 03/18/2024 (Declined at t his time) Start: 01-04-2025 [facility] Start: 01-04-2025 [facility] Start: 12-30-2024 End: 03-31-2025 25-hydroxyvitamin D3 [Mass/volume] in Serum or Plasma VITAMIN D 25 HYDROXY Lab Routine Vitamin D deficiency Expected: 12/30/2024 (Approximate), Expires: 03/31/2025 [facility] Comment on above: Expected: 12/30/2024 (Approximate), Expi res: 03/31/2025 Start: 12-30-2024 End: 03-31-2025 Hemoglobin A1c in Blood HEMOGLOBIN A1C Lab Routine 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) Expected: 12/30/2024 (Approximate), Expires: 03/31/2025 [facility] Work Phone: Comment on above: Expected: 12/30/2024 (Approximate), Expi res: 03/31/2025 Start: 12-26-2024 Glaucoma screening Dilated Retinal Exam [facility] Start: 12-19-2024 [facility] Start: 12-18-2024 End: 12-18-2024 Patient encounter procedure 12/18/2024 9:00 AM EDT [facility] [address] [phone] [facility] [address] [place] [address] DM f/up [facility] Comment on above: DM f/up Start: 11-29-2024 [facility] Start: 11-28-2024 End: 11-28-2024 Patient encounter procedure 11/28/2024 9:15 AM EDT Office Visit Endocrinology [address] [place] [address] Renetta Mcgee, SANDSTONE SPLITTER.LOCKER ATTENDANT [address] [place] [address] 6 MTH F/U Endocrinology Comment on above: 6 MTH F/U Start: 11-20-2024 Hemoglobin A1c measurement HbA1C [facility] Start: 11-08-2024 Annual PCP Team Chronic Disease Visit Annual PCP Team Chronic Disease Visit [facility] Start: 11-06-2024 End: 11-06-2024 Patient encounter procedure 11/06/2024 9:00 AM EDT [facility] [address] [phone] Charis Lucas, [facility] [address] [place] [address] DM f/up [facility] Comment on above: DM f/up Start: 11-03-2024 [facility] Start: 10-31-2024 End: 10-31-2024 Patient encounter procedure 10/31/2024 3:15 PM EDT Office Visit Endocrinology [address] [place] [address] Renetta Mcgee, SANDSTONE SPLITTER.LOCKER ATTENDANT [address] [place] [address] High blood sugars Endocrinology Comment on above: High blood sugars Start: 10-24-2024 [facility] Start: 10-19-2024 [facility] Start: 10-15-2024 End: 10-15-2024 Patient encounter procedure 10/15/2024 1:40 PM EDT Office Visit [facility] [address] [place] [address] Octavio Reza MD [address] [place] [address] 4 month follow up [facility] Comment on above: 4 month follow up Start: 10-01-2024 End: 10-01-2024 ambulatory 10/01/2024 9:00 AM EDT Education Endocrinology [address] [place] [address] Sergo Perez, MEMO [address] [address] 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) (review 09/13/24 tele enc) Endocrinology Comment on above: Type I diabetes mellitus with manifestat ions (HCC) (review 09/13/24 tele enc) Start: 09-28-2024 End: 09-28-2024 Patient encounter procedure 09/28/2024 2:45 PM EDT Office Visit Pulmonary Medicine [address] [place] [address] Christine Bianchi MD [address] [place] [address] [facility] Comment on above: [place] Start: 09-28-2024 End: 09-28-2024 ambulatory 09/28/2024 2:30 PM EDT Procedure PULM LAB [facility] [address] [place] [address] Wstr, Pulm Lab [facility] [address] [place] [address] [place] [facility] Comment on above: [place] Start: 09-26-2024 End: 12-26-2024 CBC panel - Blood by Automated count COMPLETE BLOOD COUNT Lab Routine 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) Anemia, unspecified type Expected: 09/26/2024, Expires: 12/26/2024 [facility] Comment on above: Expected: 09/26/2024, Expires: Start: 09-26-2024 End: 12-26-2024 Comprehensive metabolic 2000 panel - Serum or Plasma COMPREHENSIVE METABOLIC PANEL Lab Routine 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) Anemia, unspecified type Expected: 09/26/2024, Expires: 12/26/2024 [facility] Work Phone: Comment on above: Expected: 09/26/2024, Expires: Start: 09-26-2024 End: 09-26-2024 Patient encounter procedure 09/26/2024 10:00 AM EDT Office Visit [facility] [address] [facility] [place] [address] Octavio Reza MD [address] [place] [address] [facility] ER f/u 3 diarrhea [facility] Comment on above: [facility] ER f/u 09-21-24 diarrhea Start: 09-21-2024 [facility] Start: 09-20-2024 [facility] Start: 09-20-2024 [facility] Start: 09-20-2024 Annual PCP Team Chronic Disease Visit Annual PCP Team Chronic Disease Visit [facility] Start: 09-20-2024 Bacteria identified in Urine by Culture Urine Culture [facility] Start: 09-10-2024 End: 09-10-2024 Patient encounter procedure 09/10/2024 9:00 AM EST [facility] [address] [phone] [facility] Charis, RPh [address] [place] [address] DM f/up [facility] Comment on above: DM f/up Start: 09-02-2024 Hepatitis B screening Urine Albumin:Creatinine Ratio [facility] Start: 07-31-2024 End: 07-31-2024 Patient encounter procedure 07/31/2024 9:00 AM EST [facility] [address] [phone] [facility] Charis, RPh [address] [place] [address] DM f/up [facility] Comment on above: DM f/up Start: 07-28-2024 [facility] Start: 07-18-2024 Advance Directive Discussion Advance Directive Discussion [facility] Start: 07-18-2024 End: 10-17-2024 Comprehensive metabolic 2000 panel - Serum or Plasma COMPREHENSIVE METABOLIC PANEL Lab Routine Diabetes mellitus type 1, controlled, without complications (HCC) Expected: 07/18/2024, Expires: 10/17/2024 [facility] Work Phone: Comment on above: Expected: 07/18/2024, Expires: Start: 07-18-2024 End: 10-17-2024 Hemoglobin A1c in Blood HEMOGLOBIN A1C Lab Routine Diabetes mellitus type 1, controlled, without complications (HCC) Expected: 07/18/2024, Expires: 10/17/2024 [facility] Comment on above: Expected: 07/18/2024, Expires: Start: 07-18-2024 End: 10-17-2024 LIPID PANEL, NONFASTING LIPID PANEL, NONFASTING Lab Routine Diabetes mellitus type 1, controlled, without complications (HCC) Expected: 07/18/2024, Expires: 10/17/2024 [facility] Comment on above: Expected: 07/18/2024, Expires: Start: 07-18-2024 End: 10-17-2024 Microalbumin/Creatinine [Mass Ratio] in Urine [facility] Comment on above: Expected: 07/18/2024, Expires: Expected: 07/18/2024 (Approximate), Expires: 10/17/2024 Start: 07-03-2024 End: 07-03-2024 Patient encounter procedure 07/03/2024 2:20 PM EST Office Visit [facility] [address] [place], [place] [id number] Lydia Grande APRN.COMMUNITY DEVELOPMENT COORDINATOR [address] [place] [address] BP check, see 06/29/24 Phone Encounter for details [facility] Comment on above: BP check, see 06/29/24 Phone Encounter f or details Start: 07-03-2024 [facility] Start: 06-29-2024 Glaucoma screening Dilated Retinal Exam [facility] Start: 06-27-2024 End: 09-26-2024 Bacteria identified in Urine by Culture URINE CULTURE Microbiology Routine Acute cystitis without hematuria Expected: 06/27/2024, Expires: 09/26/2024 [facility] Comment on above: Expected: 06/27/2024, Expires: Start: 06-27-2024 End: 09-26-2024 Urinalysis complete panel - Urine URINALYSIS, WITH MICROSCOPIC Lab Routine Acute cystitis without hematuria Expected: 06/27/2024, Expires: 09/26/2024 [facility] Work Phone: Comment on above: Expected: 06/27/2024, Expires: Start: 06-19-2024 End: 06-19-2024 Patient encounter procedure 06/19/2024 9:00 AM EST [facility] [address] [phone] [facility] [address] [place] [address] DM f/up [facility] Comment on above: DM f/up Start: 06-15-2024 End: 06-15-2024 Patient encounter procedure Neurology Comment on above: THAIS (obstructive sleep apnea) [G47.33] Patient wants appt c anceled- THAIS (obstructive sleep apnea) [G47.33]- referral placeed states pt has not tolerated bipap, wears O2 @ hs, takes nehal, sleep study done at [facility], DME= [facility] Start: 06-11-2024 End: 06-11-2024 Patient encounter procedure 06/11/2024 9:00 AM EST Office Visit [facility] [address] [place] [address] Octavio Reza MD [address] [place], [place] [phone] 4 month follow up [facility] Comment on above: 4 month follow up Start: 06-08-2024 [facility] Start: 06-08-2024 Hemoglobin A1c measurement HbA1C [facility] Start: 06-07-2024 End: 06-07-2024 Patient encounter procedure 06/07/2024 11:00 AM EST Office Visit Neurology [address] [place] [address] Rehana Osorio APRN.LOCKER ATTENDANT [address] [place] [address] THAIS (obstructive sleep apnea) [G47.33] Neurology Comment on above: THAIS (obstructive sleep apnea) [G47.33] Start: 05-27-2024 [facility] Start: 05-27-2024 [facility] Start: 05-25-2024 [facility] Start: 05-23-2024 Annual PCP Team Chronic Disease Visit Annual PCP Team Chronic Disease Visit [facility] Start: 05-23-2024 End: 05-23-2024 Patient encounter procedure 05/23/2024 12:45 PM EST Office Visit Endocrinology [address] [place] [address] Renetta Mcgee APRN.LOCKER ATTENDANT [address] [place] [address] 3 mo follow up Endocrinology Comment on above: 3 mo follow up Start: 05-18-2024 End: 08-17-2024 Comprehensive metabolic 2000 panel - Serum or Plasma COMPREHENSIVE METABOLIC PANEL Lab Routine Diabetes mellitus type 1, controlled, without complications (HCC) Expected: 05/18/2024, Expires: 08/17/2024 [facility] Work Phone: Comment on above: Expected: 05/18/2024, Expires: Start: 05-18-2024 End: 08-17-2024 Hemoglobin A1c in Blood HEMOGLOBIN A1C Lab Routine Diabetes mellitus type 1, controlled, without complications (HCC) Expected: 05/18/2024, Expires: 08/17/2024 [facility] Comment on above: Expected: 05/18/2024, Expires: Start: 05-18-2024 End: 08-17-2024 LIPID PANEL, NONFASTING LIPID PANEL, NONFASTING Lab Routine Diabetes mellitus type 1, controlled, without complications (HCC) Expected: 05/18/2024, Expires: 08/17/2024 [facility] Comment on above: Expected: 05/18/2024, Expires: Start: 05-18-2024 End: 08-17-2024 Microalbumin/Creatinine [Mass Ratio] in Urine ALBUMIN/CREATININE RATIO, URINE Lab Routine Diabetes mellitus type 1, controlled, without complications (HCC) Expected: 05/18/2024, Expires: 08/17/2024 [facility] Comment on above: Expected: 05/18/2024, Expires: Start: 05-16-2024 BP Controlled (<130/80) BP Controlled (<130/80) [facility] Start: 05-14-2024 End: 05-14-2024 Patient encounter procedure 05/14/2024 3:20 PM EDT Office Visit Cardiology [address] [place] [phone] Anant Lees MD [address] [facility], [address] [place] [address] 1 year follow up Cardiology Comment on above: 1 year follow up Start: 04-24-2024 End: 04-24-2024 Patient encounter procedure 04/24/2024 9:30 AM EDT [facility] [address] [phone] [facility] [address] [place] [address] DM f/up [facility] Comment on above: DM f/up Start: 04-10-2024 End: 04-10-2024 Patient encounter procedure 04/10/2024 9:00 AM EDT [facility] [address] [phone] [facility] [address] [place] [address] DM f/up [facility] Comment on above: DM f/up Start: 04-09-2024 End: 04-09-2024 Follow-up encounter 04/09/2024 10:00 AM EDT Education Endocrinology [address] [place] [address] Sergo Perez RD [address] [phone] follow up Endocrinology Comment on above: follow up Start: 03-30-2024 End: 03-30-2024 Patient encounter procedure 03/30/2024 2:15 PM EDT Office Visit Pulmonary Medicine [address] [place] [address] Christine Bianchi MD [address] [place] [address] KEZIA / 6 MTH F/U [facility] Pulmonary Medicine Comment on above: KEZIA / 6 MTH F/U [facility]HMA Start: 03-30-2024 End: 03-30-2024 ambulatory 03/30/2024 2:00 PM EDT Procedure PULM LAB [facility] WSTR [address] [place] [address] Wstr, Pulm [facility] [address] [place] [address] KEZIA / 6 MTH F/U [facility] PULM LAB [facility] WSTR Comment on above: KEZIA / 6 MTH F/U [facility]HMA Start: 03-22-2024 End: 03-22-2024 ambulatory 03/22/2024 9:00 AM EDT [facility] Endocrinology [address] [place] [address] Sergo Perez, RD [address] [phone] Diabetes mellitus type 1, controlled, without complications (HCC) [E10.9], pt is acting for a phone call visit Endocrinology Comment on above: Diabetes mellitus type 1, controlled, wi thout complications (HCC) [E10.9], pt is acting for a phone call visit Start: 03-18-2024 Covid-19 Vaccine ( season) Covid-19 Vaccine ( season) [facility] Start: 03-18-2024 Covid-19 Vaccine ( season) Covid-19 Vaccine ( season) [facility] Start: 03-18-2024 Influenza vaccination [facility] Start: 03-01-2024 Hemoglobin A1c measurement HbA1C [facility] Start: 02-28-2024 End: 02-28-2024 Patient encounter procedure 02/28/2024 9:00 AM EDT [facility] [address] [phone] Lance Charis, [facility] [address] [place] [address] DM f/up [facility] Comment on above: DM f/up Start: 02-15-2024 End: 02-15-2024 Patient encounter procedure 02/15/2024 2:45 PM EDT Office Visit Endocrinology [address] [place] [address] Renetta Mcgee, SANDSTONE SPLITTER.LOCKER ATTENDANT [address] [place] [address] 3 mo follow up Endocrinology Comment on above: 3 mo follow up Start: 02-13-2024 End: 02-13-2024 Patient encounter procedure 02/13/2024 9:20 AM EDT Office Visit [facility] [address] [place] [address] Octavio Reza MD [address] [place] [address] 4 month follow up [facility] [place] Comment on above: 4 month follow up Start: 02-07-2024 End: 02-07-2024 Patient encounter procedure 02/07/2024 9:20 AM EDT Office Visit [facility] Medicine [place] [address] [place] [address] Octavio Reza MD [address] [place] [address] 4 month follow up [facility] [place] Comment on above: 4 month follow up Start: 01-26-2024 End: 04-26-2024 25-hydroxyvitamin D3 [Mass/volume] in Serum or Plasma VITAMIN D 25 HYDROXY Lab Routine Vitamin D deficiency Expected: 01/26/2024, Expires: 04/26/2024 [facility] Comment on above: Expected: 01/26/2024, Expires: Start: 01-26-2024 End: 04-26-2024 CBC W Auto Differential panel - Blood COMPLETE BLOOD COUNT AND DIFFERENTIAL Lab Routine 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) Expected: 01/26/2024, Expires: 04/26/2024 [facility] Comment on above: Expected: 01/26/2024, Expires: Start: 01-26-2024 End: 04-26-2024 Comprehensive metabolic 2000 panel - Serum or Plasma COMPREHENSIVE METABOLIC PANEL Lab Routine 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) Expected: 01/26/2024, Expires: 04/26/2024 [facility] Comment on above: Expected: 01/26/2024, Expires: Start: 01-26-2024 End: 04-26-2024 Lipid 1996 panel - Serum or Plasma LIPID PANEL BASIC Lab Routine 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) Expected: 01/26/2024, Expires: 04/26/2024 [facility] Work Phone: Comment on above: Expected: 01/26/2024, Expires: Start: 01-18-2024 ANNUAL PCP TEAM CHRONIC DISEASE VISIT ANNUAL PCP TEAM CHRONIC DISEASE VISIT [facility] Start: 01-18-2024 BP CONTROLLED (<130/80) BP CONTROLLED (<130/80) [facility] Start: 01-18-2024 COVID-19 VACCINE (#1) COVID-19 VACCINE (#1) [facility] Comment on above: Postponed from 01/27/1946 (Declined at t his time) Start: 01-18-2024 End: 01-18-2024 Nursing evaluation of patient and report 01/18/2024 10:00 AM EDT Nurse Visit Endocrinology [address] [place] [address] Tawanda Wolff, RN [address] [phone] Diabetes mellitus type 1, controlled, without complications (HCC) [E10.9] Endocrinology Comment on above: Diabetes mellitus type 1, controlled, wi thout complications (HCC) [E10.9] Start: 01-12-2024 End: 01-12-2024 Patient encounter procedure 01/12/2024 9:00 AM EDT [facility] [address] [place] [address] Charis Lucas, [facility] [address] [place], [place] [phone] Diabetes mellitus type 1, controlled, without complications (HCC) [E10.9] [facility] Comment on above: Diabetes mellitus type 1, controlled, wi thout complications (HCC) [E10.9] Start: 01-11-2024 End: 01-11-2024 Nursing evaluation of patient and report 01/11/2024 2:00 PM EDT Nurse Visit Endocrinology [address] [place], [place] [phone] Tawanda Wolff, RN [address] [phone] Diabetes mellitus type 1, controlled, without complications (HCC) [E10.9] Endocrinology Comment on above: Diabetes mellitus type 1, controlled, wi thout complications (HCC) [E10.9] Start: 12-07-2023 End: 03-07-2024 Glutamate decarboxylase 65 Ab [Units/volume] in Serum [facility] Comment on above: Expected: 12/07/2023, Expires: 4 Start: 12-07-2023 End: 03-07-2024 Hemoglobin A1c in Blood [facility] Comment on above: Expected: 12/07/2023, Expires: 4 Start: 12-07-2023 End: 03-07-2024 Pancreatic islet cell Ab [Titer] in Serum [facility] Comment on above: Expected: 12/07/2023, Expires: 4 Start: 12-07-2023 End: 12-07-2023 Patient encounter procedure 12/07/2023 10:15 AM EDT Office Visit Endocrinology [address] [place] [address] Renetta Mcgee, JOSEFINA.LOCKER ATTENDANT [address] [place] [address] 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.8] Endocrinology Comment on above: Type I diabetes mellitus with manifestat ions (HCC) [E10.8] Start: 11-28-2023 [facility] Start: 11-15-2023 Hemoglobin A1c measurement HbA1C [facility] Start: 11-15-2023 Hemoglobin A1c/Hemoglobin.total in Blood HbA1C [facility] Start: 11-07-2023 [facility] Start: 11-06-2023 [facility] Start: 10-28-2023 [facility] Start: 10-06-2023 ANNUAL PCP TEAM CHRONIC DISEASE VISIT ANNUAL PCP TEAM CHRONIC DISEASE VISIT [facility] Start: 10-01-2023 [facility] Start: 09-21-2023 End: 12-21-2023 25-hydroxyvitamin D3 [Mass/volume] in Serum or Plasma VITAMIN D 25 HYDROXY Lab Routine Vitamin D deficiency Expected: 09/21/2023 (Approximate), Expires: 12/21/2023 [facility] Work Phone: Comment on above: Expected: 09/21/2023 (Approximate), Expi res: 12/21/2023 Start: 09-21-2023 ANNUAL PCP TEAM CHRONIC DISEASE VISIT ANNUAL PCP TEAM CHRONIC DISEASE VISIT [facility] Start: 09-21-2023 End: 12-21-2023 CBC panel - Blood by Automated count CBC Lab Routine Essential hypertension Expected: 09/21/2023 (Approximate), Expires: 12/21/2023 [facility] Work Phone: Comment on above: Expected: 09/21/2023 (Approximate), Expi res: 12/21/2023 Start: 09-21-2023 End: 12-21-2023 Comprehensive metabolic 2000 panel - Serum or Plasma COMP METABOLIC PANEL Lab Routine 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) Expected: 09/21/2023 (Approximate), Expires: 12/21/2023 [facility] Work Phone: Comment on above: Expected: 09/21/2023 (Approximate), Expi res: 12/21/2023 Start: 09-21-2023 End: 12-21-2023 Hemoglobin A1c in Blood HGB A1C Lab Routine 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) Expected: 09/21/2023 (Approximate), Expires: 12/21/2023 [facility] Work Phone: Comment on above: Expected: 09/21/2023 (Approximate), Expi res: 12/21/2023 Start: 09-21-2023 [facility] Start: 09-21-2023 [facility] Start: 09-16-2023 [facility] Start: 09-16-2023 Emergency department visit moderate severity EMERGENCY DEPT VISIT LOW MDM [facility] Start: 09-14-2023 Hepatitis B surface antibody level LDL CHOLESTEROL [facility] Start: 09-07-2023 ANNUAL PCP TEAM CHRONIC DISEASE VISIT ANNUAL PCP TEAM CHRONIC DISEASE VISIT [facility] Start: 09-01-2023 End: 12-01-2023 25-hydroxyvitamin D3 [Mass/volume] in Serum or Plasma [facility] Work Phone: Comment on above: Expected: 09/01/2023, Expires: 4 Start: 09-01-2023 End: 12-01-2023 ALBUMIN/CREAT RATIO RND UR ALBUMIN/CREAT RATIO RND UR Lab Routine 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) Expected: 09/01/2023, Expires: 12/01/2023 [facility] Work Phone: Comment on above: Expected: 09/01/2023, Expires: 4 Start: 09-01-2023 End: 12-01-2023 DORA BY IFA SCREEN [facility] Work Phone: Comment on above: Expected: 09/01/2023, Expires: 4 Start: 09-01-2023 End: 12-01-2023 C reactive protein [Mass/volume] in Serum or Plasma [facility] Work Phone: Comment on above: Expected: 09/01/2023, Expires: 4 Start: 09-01-2023 End: 12-01-2023 Comprehensive metabolic 2000 panel - Serum or Plasma [facility] Work Phone: Comment on above: Expected: 09/01/2023, Expires: Start: 09-01-2023 End: 12-01-2023 Erythrocyte sedimentation rate [facility] Work Phone: Comment on above: Expected: 09/01/2023, Expires: Start: 09-01-2023 End: 12-01-2023 Hemoglobin A1c in Blood [facility] Work Phone: Comment on above: Expected: 09/01/2023, Expires: 4 Start: 09-01-2023 End: 12-01-2023 Lipid 1996 panel - Serum or Plasma LIPID PANEL BASIC Lab Routine 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) Expected: 09/01/2023, Expires: 12/01/2023 [facility] Work Phone: Comment on above: Expected: 09/01/2023, Expires: Start: 09-01-2023 End: 12-01-2023 Rheumatoid factor [Units/volume] in Serum or Plasma [facility] Work Phone: Comment on above: Expected: 09/01/2023, Expires: Start: 08-17-2023 ANNUAL PCP TEAM CHRONIC DISEASE VISIT ANNUAL PCP TEAM CHRONIC DISEASE VISIT [facility] Start: 08-17-2023 BP CONTROLLED (<130/80) BP CONTROLLED (<130/80) [facility] Start: 07-18-2023 Advance Directive Discussion Advance Directive Discussion [facility] Start: 05-28-2023 [facility] Start: 05-18-2023 ANNUAL PCP TEAM CHRONIC DISEASE VISIT ANNUAL PCP TEAM CHRONIC DISEASE VISIT [facility] Start: 03-18-2023 Covid-19 Vaccine () Covid-19 Vaccine () [facility] Start: 03-18-2023 Influenza vaccination [facility] Start: 03-14-2023 Hemoglobin A1c/Hemoglobin.total in Blood HBA1C [facility] Start: 01-11-2023 ANNUAL PCP TEAM CHRONIC DISEASE VISIT ANNUAL PCP TEAM CHRONIC DISEASE VISIT [facility] Start: 12-24-2022 Hepatitis B screening URINE ALBUMIN:CREATININE RATIO [facility] Start: 12-24-2022 Hepatitis B surface antibody level LDL CHOLESTEROL [facility] Start: 12-23-2022 ANNUAL PCP TEAM CHRONIC DISEASE VISIT ANNUAL PCP TEAM CHRONIC DISEASE VISIT [facility] Start: 11-04-2022 [facility] Start: 10-23-2022 ANNUAL PCP TEAM CHRONIC DISEASE VISIT ANNUAL PCP TEAM CHRONIC DISEASE VISIT [facility] Start: 10-11-2022 [facility] Start: 10-01-2022 Troponin I measurement [facility] Start: 10-01-2022 [facility] Start: 09-15-2022 End: 11-15-2022 25-hydroxyvitamin D3 [Mass/volume] in Serum or Plasma VITAMIN D 25 HYDROXY Lab Routine Vitamin D deficiency Expected: 09/15/2022 (Approximate), Expires: 11/15/2022 [facility] Work Phone: Comment on above: Expected: 09/15/2022 (Approximate), Expi res: 11/15/2022 Start: 09-15-2022 3 comp foot exam completed DIABETIC FOOT EXAM [facility] Comment on above: Postponed from 10/27/2021 (Declined at t his time) Start: 09-15-2022 End: 11-15-2022 Lipid 1996 panel - Serum or Plasma LIPID PANEL BASIC Lab Routine Mixed hyperlipidemia Expected: 09/15/2022 (Approximate), Expires: 11/15/2022 [facility] Work Phone: Comment on above: Expected: 09/15/2022 (Approximate), Expi res: 11/15/2022 Start: 09-11-2022 ANNUAL PCP TEAM CHRONIC DISEASE VISIT ANNUAL PCP TEAM CHRONIC DISEASE VISIT [facility] Start: 08-02-2022 Patient discharge [facility] Start: 08-02-2022 Speech therapy assessment [facility] Start: 08-01-2022 [facility] Start: 08-01-2022 Admission procedure [facility] Start: 08-01-2022 Incentive spirometry [facility] Start: 08-01-2022 Blood chemistry [facility] Work Phone: Start: 08-01-2022 CBC W Auto Differential panel - Blood [facility] Work Phone: Start: 08-01-2022 Inhalation therapy procedure [facility] Start: 07-31-2022 Following clinical pathway protocol [facility] Start: 07-31-2022 Assessment of risk of venous thromboembolism [facility] Start: 07-31-2022 Care regimes management [facility] Start: 07-31-2022 Insertion of catheter into peripheral vein [facility] Start: 07-31-2022 Oxygen therapy [facility] Start: 07-31-2022 Providing care according to standard [facility] Start: 07-31-2022 Provision of activity privileges [facility] Start: 07-31-2022 Referral to occupational therapist [facility] Start: 07-31-2022 Referral to service [facility] Start: 07-31-2022 [facility] Start: 07-31-2022 Verification routine [facility] Work Phone: Start: 07-31-2022 Admission procedure [facility] Start: 07-31-2022 [facility] Start: 07-31-2022 Patient referral to dietitian [facility] Start: 07-25-2022 [facility] Work Phone: Start: 07-24-2022 Patient discharge [facility] Start: 07-23-2022 Referral to service [facility] Start: 07-22-2022 [facility] Start: 07-20-2022 Referral to occupational therapist [facility] Start: 07-20-2022 Referral to service [facility] Start: 07-18-2022 ADVANCE DIRECTIVE DISCUSSION ADVANCE DIRECTIVE DISCUSSION [facility] Start: 07-18-2022 Methicillin resistant Staphylococcus aureus screening test [facility] Start: 07-18-2022 Following clinical pathway protocol [facility] Start: 07-18-2022 Assessment of risk of venous thromboembolism [facility] Start: 07-18-2022 Care regimes management [facility] Start: 07-18-2022 Elevation of head of bed [facility] Start: 07-18-2022 Incentive spirometry [facility] Start: 07-18-2022 Inhalation therapy procedure [facility] Start: 07-18-2022 Insertion of catheter into peripheral vein [facility] Start: 07-18-2022 Notification of physician [facility] Start: 07-18-2022 Oxygen therapy [facility] Start: 07-18-2022 Patient education [facility] Start: 07-18-2022 Physiotherapy of chest [facility] Start: 07-18-2022 Providing care according to standard [facility] Start: 07-18-2022 Provision of activity privileges [facility] Start: 07-18-2022 Referral to service [facility] Start: 07-18-2022 End: 07-18-2022 [facility] Start: 07-18-2022 Admission procedure [facility] Start: 07-18-2022 Dual pressure spontaneous ventilation support [facility] Start: 07-18-2022 Patient referral to dietitian [facility] Start: 07-14-2022 Patient discharge [facility] Start: 07-10-2022 Respiratory secretion precautions [facility] Start: 07-10-2022 Following clinical pathway protocol [facility] Start: 07-10-2022 Ambulation without limitation [facility] Start: 07-10-2022 Assessment of risk of venous thromboembolism [facility] Start: 07-10-2022 Care regimes management [facility] Start: 07-10-2022 Incentive spirometry [facility] Start: 07-10-2022 Insertion of catheter into peripheral vein [facility] Start: 07-10-2022 Oxygen therapy [facility] Start: 07-10-2022 Providing care according to standard [facility] Start: 07-10-2022 Viral nucleic acid assay [facility] Work Phone: Start: 07-10-2022 End: 07-10-2022 [facility] Start: 07-10-2022 Verification routine [facility] Work Phone: Start: 07-10-2022 Admission procedure [facility] Start: 07-10-2022 End: 07-11-2022 [facility] Start: 07-10-2022 Inhalation therapy procedure [facility] Start: 06-25-2022 Hemoglobin A1c/Hemoglobin.total in Blood HBA1C [facility] Start: 05-28-2022 Hepatitis C antibody, confirmatory test DILATED RETINAL EXAM [facility] Start: 05-25-2022 Hepatitis B screening URINE ALBUMIN:CREATININE RATIO [facility] Start: 05-11-2022 BP CONTROLLED (<130/80) BP CONTROLLED (<130/80) [facility] in Start: 05-04-2022 Hepatitis B surface antibody level LDL CHOLESTEROL [facility] Start: 03-18-2022 Influenza vaccination INFLUENZA (#1) [facility] Start: 03-09-2022 FECAL OCCULT BLOOD FECAL OCCULT BLOOD [facility] Start: 03-09-2022 Screening for malignant neoplasm of colon Fecal Occult Blood [facility] Start: 03-02-2022 Hemoglobin A1c/Hemoglobin.total in Blood HBA1C [facility] Start: 01-12-2022 COVID-19 VACCINE (#1) COVID-19 VACCINE (#1) [facility] Comment on above: Postponed from 1950 (Declined at t his time) Start: 01-12-2022 COVID-19 VACCINE (1) COVID-19 VACCINE (1) [facility] Comment on above: Postponed from 1950 (Declined at t his time) Start: 01-12-2022 Urine microalbumin profile DTAP,TDAP,TD (1 - Tdap) [facility] Comment on above: Postponed from 1964 (Declined at t his time) Start: 12-24-2021 End: 02-23-2022 Amylase [Enzymatic activity/volume] in Serum or Plasma [facility] Work Phone: Comment on above: Expected: 12/24/2021, Expires: 2 Start: 12-24-2021 End: 02-23-2022 Gamma glutamyl transferase [Enzymatic activity/volume] in Serum or Plasma [facility] Work Phone: Comment on above: Expected: 12/24/2021, Expires: 2 Start: 12-24-2021 End: 02-23-2022 Lipase [Enzymatic activity/volume] in Serum or Plasma [facility] Work Phone: Comment on above: Expected: 12/24/2021, Expires: 2 Start: 12-09-2021 End: 09-11-2022 ALBUMIN/CREAT RATIO RND UR ALBUMIN/CREAT RATIO RND UR Lab Routine 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) Expected: 12/09/2021 (Approximate), Expires: 09/11/2022 [facility] Work Phone: Comment on above: Expected: 12/09/2021 (Approximate), Expi res: 09/11/2022 Start: 12-09-2021 End: 09-11-2022 CBC panel - Blood by Automated count CBC Lab Routine 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) Essential hypertension Expected: 12/09/2021 (Approximate), Expires: 09/11/2022 [facility] Work Phone: Comment on above: Expected: 12/09/2021 (Approximate), Expi res: 09/11/2022 Start: 12-09-2021 End: 09-11-2022 Comprehensive metabolic 2000 panel - Serum or Plasma COMP METABOLIC PANEL Lab Routine 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) Essential hypertension Expected: 12/09/2021 (Approximate), Expires: 09/11/2022 [facility] Work Phone: Comment on above: Expected: 12/09/2021 (Approximate), Expi res: 09/11/2022 Start: 12-09-2021 End: 09-11-2022 Hemoglobin A1c/Hemoglobin.total in Blood HGB A1C Lab Routine 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) Expected: 12/09/2021 (Approximate), Expires: 09/11/2022 [facility] Work Phone: Comment on above: Expected: 12/09/2021 (Approximate), Expi res: 09/11/2022 Start: 12-09-2021 End: 09-11-2022 LIPID PANEL BASIC LIPID PANEL BASIC Lab Routine 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) Mixed hyperlipidemia Expected: 12/09/2021 (Approximate), Expires: 09/11/2022 [facility] Work Phone: Comment on above: Expected: 12/09/2021 (Approximate), Expi res: 09/11/2022 Start: 12-09-2021 End: 09-11-2022 VITAMIN D 25 HYDROXY VITAMIN D 25 HYDROXY Lab Routine Vitamin D deficiency Expected: 12/09/2021 (Approximate), Expires: 09/11/2022 [facility] Work Phone: Comment on above: Expected: 12/09/2021 (Approximate), Expi res: 09/11/2022 Start: 10-27-2021 3 comp foot exam completed DIABETIC FOOT EXAM [facility] Start: 10-27-2021 Diabetic foot examination Diabetic Foot Exam [facility] Start: 07-18-2021 ADVANCE DIRECTIVE DISCUSSION ADVANCE DIRECTIVE DISCUSSION [facility] Start: 2020 RSV Vaccine (1 - 1-dose 75+ series) RSV Vaccine (1 - 1-dose 75+ series) [facility] Start: 11-28-2017 End: 11-28-2017 Appointment [facility] Work Phone: Start: 11-22-2016 End: 11-22-2016 Appointment Appointment [facility] Work Phone: Start: 11-22-2016 End: 11-22-2016 Follow Up Appt 1 year Follow Up Appt 1 year [facility] Work Phone: Start: 11-22-2016 End: 11-22-2016 PFM PFM [facility] Work Phone: Start: 07-21-2015 End: 07-21-2015 Follow Up Appt 1 year Follow Up Appt 1 year [facility] Work Phone: Start: 07-21-2015 End: 07-21-2015 PFM PFM [facility] Work Phone: Start: 01-06-2015 End: 01-06-2015 Follow Up Appt 6 months Follow Up Appt 6 months [facility] Work Phone: Start: 01-06-2015 End: 01-06-2015 PFM PFM [facility] Work Phone: Start: 10-12-2013 End: 10-12-2013 Follow Up Appt 6 months Follow Up Appt 6 months [facility] Work Phone: Start: 10-12-2013 End: 10-12-2013 Follow Up Appt Other Follow Up Appt Other [facility] Work Phone: Start: 10-12-2013 End: 10-12-2013 PFM PFM [facility] Work Phone: Start: 03-23-2013 End: 03-23-2013 Electrocardiogram, complete EKG (In office) [facility] Work Phone: Start: 03-23-2013 End: 03-23-2013 Follow Up Appt 6 months Follow Up Appt 6 months [facility] Work Phone: Start: 03-23-2013 End: 03-23-2013 MMM MMM [facility] Work Phone: Start: 11-15-2012 End: 03-23-2013 Follow Up Appt 1 year Follow Up Appt 1 year [facility] Work Phone: Start: 11-15-2012 End: 03-23-2013 Follow Up Appt Other Follow Up Appt Other [facility] Work Phone: Start: 11-15-2012 End: 03-23-2013 PFM PFM [facility] Work Phone: Start: 03-15-2012 End: 03-15-2012 Electrocardiogram, complete EKG (In office) [facility] Work Phone: Start: 03-15-2012 End: 03-15-2012 Follow Up Appt 6 months Follow Up Appt 6 months [facility] Work Phone: Start: 01-20-2012 End: 01-20-2012 Remote 30 day ecg rev/report 30 Day Holter Monitor [facility] Work Phone: Start: 2005 Hepatitis B Vaccine (1 of 3 - Risk 3-dose series) Hepatitis B Vaccine (1 of 3 - Risk 3-dose series) [facility] Start: 2005 RSV Vaccine (1 - 1-dose 60+ series) RSV Vaccine (1 - 1-dose 60+ series) [facility] Start: 1990 DARLENE (FIT-DNA) DARLENE (FIT-DNA) [facility] Start: [address] COLONOGRAPHY [facility] Start: 1990 Screening for malignant neoplasm of colon [facility] Start: 1990 SIGMOIDOSCOPY SIGMOIDOSCOPY [facility] Start: 1964 Urine microalbumin profile [facility] Start: 01-27-1946 COVID-19 VACCINE (#1) COVID-19 VACCINE (#1) [facility] Anion gap measurement [facility] Work Phone: Bacteria identified in Sputum by Respiratory culture [facility] Work Phone: Bacteria identified in Sputum by Respiratory culture [facility] Bacteria identified in Urine by Culture Urine Culture [facility] Work Phone: Bacteria identified in Urine by Culture URINE CULTURE Microbiology Routine Acute cystitis without hematuria 06/28/2024 11:42 AM EST [facility] BUN/Creatinine ratio [facility] Work Phone: Calcium [Mass/volume ] in Serum or Plasma [facility] Work Phone: Carbon dioxide, tota l [Moles/volume] in Serum or Plasma [facility] Work Phone: End: 05-18-2023 CBC panel - Blood by Automated count CBC Lab Routine Encounter for long-term current use of medication Every 4 months for 4 Occurrences starting 05/18/2022 until 05/18/2023 [facility] Work Phone: Comment on above: Every 4 months for 4 Occurrences startin g 05/18/2022 until 05/18/2023 Chloride [Moles/volu me] in Serum or Plasma [facility] Work Phone: End: 05-18-2023 Comprehensive metabolic 2000 panel - Serum or Plasma COMP METABOLIC PANEL Lab Routine 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) Encounter for long-term current use of medication Every 4 months for 4 Occurrences starting 05/18/2022 until 05/18/2023 [facility] Work Phone: Comment on above: Every 4 months for 4 Occurrences startin g 05/18/2022 until 05/18/2023 COVID & INFLUENZA A/ B & RSV PCR, ROUTINE COVID & INFLUENZA A/B & RSV PCR, ROUTINE Microbiology Routine Acute cough URI, acute Ordered: 04/18/2024 [facility] Work Phone: Comment on above: Ordered: 04/18/2024 Creatinine [Moles/volume] in Serum or Plasma [facility] Work Phone: End: 04-04-2025 DBT Breast - bilateral screening [facility] SCRE[facility] Radiology Routine Screening mammogram for breast cancer 1 Occurrences starting 03/05/2024 until 04/04/2025 [facility] Work Phone: Comment on above: 1 Occurrences starting 03/05/2024 until 04/04/2025 End: 04-11-2026 DBT Breast - bilateral screening [facility] SCRE[facility] Radiology Routine Screening mammogram for breast cancer 1 Occurrences starting 03/13/2025 until 04/11/2026 [facility] Work Phone: Comment on above: 1 Occurrences starting 03/13/2025 until 04/11/2026 Glucose [Mass/volume ] in Serum or Plasma [facility] Work Phone: Hematocrit [Volume Fraction] of Blood [facility] Work Phone: Hemoglobin [Mass/vol ume] in Blood [facility] Work Phone: End: 05-18-2023 Hemoglobin A1c in Blood HGB A1C Lab Routine 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) Every 4 months for 4 Occurrences starting 05/18/2022 until 05/18/2023 [facility] Work Phone: Comment on above: Every 4 months for 4 Occurrences startin g 05/18/2022 until 05/18/2023 INFLUENZA VACCINE, P RSV FREE, AGE 65+ YR, HIGH DOSE, QUADRIVALENT (FLUZONE HIGH-DOSE) INFLUENZA VACCINE, PRSV FREE, AGE 65+ YR, HIGH DOSE, QUADRIVALENT (FLUZONE HIGH-DOSE) Immunization/Injection Routine Encounter for immunization Ordered: 05/23/2023 [facility] Work Phone: Comment on above: Ordered: 05/23/2023 Leukocytes [#/volume ] in Blood [facility] Work Phone: End: 02-19-2023 [facility]LLY SCREENING [facility] Radiology Routine Breast cancer screening by mammogram Dense breasts 1 Occurrences starting 01/21/2022 until 02/19/2023 [facility] Work Phone: Comment on above: 1 Occurrences starting 01/21/2022 until 02/19/2023 End: 03-22-2024 KELLY SCREENING [facility] SCREEN[facility] Radiology Routine Screening mammogram for breast cancer 1 Occurrences starting 02/21/2023 until 03/22/2024 [facility] Work Phone: Comment on above: 1 Occurrences starting 02/21/2023 until 03/22/2024 Mean corpuscular hemoglobin concentration determination [facility] Work Phone: Mean corpuscular hemoglobin determination [facility] Work Phone: Measurement of renal function [facility] Work Phone: Neutrophil count [facility] Work Phone: Neutrophil percent differential count [facility] Work Phone: End: 10-21-2024 NITRIC OXIDE, EXHALED NITRIC OXIDE, EXHALED PFT Routine Mild persistent asthma without complication 1 Occurrences starting 09/22/2023 until 10/21/2024 [facility] Work Phone: Comment on above: 1 Occurrences starting 09/22/2023 until 10/21/2024 End: 04-29-2025 NITRIC OXIDE, EXHALED NITRIC OXIDE, EXHALED PFT Routine Moderate persistent asthma without complication 1 Occurrences starting 03/30/2024 until 04/29/2025 [facility] Work Phone: Comment on above: 1 Occurrences starting 03/30/2024 until 04/29/2025 OXIMETRY - NOCTURNAL OXIMETRY - NOCTURNAL Procedures Routine Severe persistent asthma without complication Ordered: 06/23/2023 [facility] Work Phone: Comment on above: Ordered: 06/23/2023 Patient Education [facility] Work Phone: Patient referral [facility] Work Phone: PPT [employer] COVI D-19 VACCINE, AGE 12+ YR (PAIGE TOP) [employer] COVID-19 VACCINE, AGE 12+ YR (PAIGE TOP) Immunization/Injection Routine Encounter for immunization Ordered: 02/15/2022 [facility] Work Phone: Comment on above: Ordered: 02/15/2022 Platelets [#/volume] in Blood [facility] Work Phone: Potassium [Moles/vol ume] in Serum or Plasma [facility] Work Phone: Red blood cell count [facility] Work Phone: Red cell distributio n width determination [facility] Work Phone: Respiratory Panel (PCR) Respiratory Panel (PCR) [facility] Work Phone: Respiratory pathogen s DNA and RNA 12b panel - Unspecified specimen by RAYMOND with probe detection [facility] Work Phone: Sodium [Moles/volume ] in Serum or Plasma [facility] Work Phone: SURGICAL PATHOLOGY [facility] Work Phone: Comment on above: Release Upon Ordering for 1 Occurrences starting 10/29/2021, 1 completed Tdap vaccine 7 yrs/> im TDAP VAC CINE AGE 7+ IM Immunization/Injection Routine Encounter for immunization Ordered: 02/15/2022 [facility] Work Phone: Comment on above: Ordered: 02/15/2022 Urea nitrogen [Mass/volume] in Serum or Plasma [facility] Work Phone: Urinalysis complete panel - Urine URINALYSIS, WITH MICROSCOPIC Lab Routine Acute cystitis without hematuria 06/28/2024 11:42 AM EST [facility] Urine culture Urine Culture [facility] Urine culture [facility] Urine culture [facility] End: 01-16-2023 XR HUMERUS 2V AP/LAT RIGHT XR HUMERUS 2V AP/LAT RIGHT Radiology STAT Pain of right upper extremity 1 Occurrences starting 12/17/2021 until 01/16/2023 [facility] Work Phone: Comment on above: 1 Occurrences starting 12/17/2021 until 01/16/2023 [facility] Immunizations Immunization Date Immunization Notes Care Provider Fa cili 08-09-2022 tuberculin skin test ; purified protein derivative solution, intradermal Octavio Reza MD Work Phone: [facility] 05-18-2022 Influenza, high dose seasonal Dr. Octavio Reza MD Work Phone: [facility] 05-18-2022 influenza, high dose seasonal, preservative-free Dr. Octavio Reza Work Phone: [facility] 05-18-2022 influenza, high-dose , quadrivalent vaccine (FLUZONE HIGH DOSE QUADRIVALENT) Octavio Reza MD Work Phone: [facility] 05-18-2022 influenza virus vaccine, unspecified formulation Anant Lees MD Work Phone: [facility] 07-02-2021 influenza, high-dose , quadrivalent vaccine (FLUZONE HIGH DOSE QUADRIVALENT) Octavio Reza MD Work Phone: [facility] 04-15-2020 influenza, high-dose , quadrivalent vaccine (FLUZONE HIGH DOSE QUADRIVALENT) Ocatvio Reza MD Work Phone: [facility] 04-16-2019 influenza, high dose seasonal, preservative-free Octavio Reza MD Work Phone: [facility] 04-12-2018 influenza, high dose seasonal, preservative-free Octavio Reza MD Work Phone: [facility] 04-11-2017 influenza, high dose seasonal, preservative-free Octavio Reza MD Work Phone: [facility] 05-10-2016 influenza, high dose seasonal, preservative-free Octavio Reza MD Work Phone: [facility] Work Phone: 04-16-2016 pneumococcal polysaccharide vaccine, [address] Octavio Reza Work Phone: [facility] 04-16-[address] Juliana Reza Work Phone: [facility] Work Phone: 04-16-2016 pneumococcal vaccine , unspecified formulation Dr. Octavio Reza Work Phone: [facility] 03-16-2016 pneumococcal conjuga te vaccine, 13 valent Octavio Reza MD Work Phone: [facility] Work Phone: 05-27-2015 influenza, high dose seasonal, preservative-free Octavio Reza MD Work Phone: [facility] 04-17-[address] Octavio Reza Work Phone: [facility] 06-12-2014 pneumococcal polysaccharide vaccine, 23 valent Octavio Reza MD Work Phone: [facility] 05-23-[address] Octavio Reza Work Phone: [facility] 05-23-2013 influenza virus vaccine, unspecified formulation Octavio Reza MD Work Phone: [facility] 05-23-2013 influenza, seasonal, injectable Octavio Reza MD Work Phone: [facility] 04-13-2012 influenza virus vaccine, unspecified formulation Octavio Reza MD Work Phone: [facility] 06-01-2007 influenza virus vaccine, unspecified formulation Octavio Reza MD Work Phone: [facility] Work Phone: 05-18-2006 influenza virus vaccine, unspecified formulation Octavio Reza MD Work Phone: [facility] Work Phone: 06-15-2005 influenza virus vaccine, unspecified formulation Octavio Reza MD Work Phone: [facility] Work Phone: 07-26-2000 pneumococcal polysaccharide vaccine, 23 valent Octavio Reza MD Work Phone: [facility] Work Phone: NEGATED: Highlighted row has not occurred!06-25-2023 influenza (HD-IIV4) vaccine, age 65+ yr, high dose, quadrivalent, PF (FLUZONE HIGH-DOSE) Octavio Reza MD Work Phone: [facility] Work Phone: NEGATED: Highlighted row has not occurred!05-23-2023 influenza (HD-IIV4) vaccine, age 65+ yr, high dose, quadrivalent, PF (FLUZONE HIGH-DOSE) Lydia Grande APRN.COMMUNITY DEVELOPMENT COORDINATOR Work Phone: [facility] Comment on above: Deferred: Postponed - Verified Patricia Mora LPN NEGATED: Highlighted row has not occurred!02-15-2022 COVID-19 vaccine, age 12+ yr (PPT [employer] - PAIGE [employer]) Lydia Grande APRN.COMMUNITY DEVELOPMENT COORDINATOR Work Phone: [facility] Work Phone: NEGATED: Highlighted row has not occurred!02-15-2022 influenza virus vaccine, unspecified formulation Lydia Grande APRN.COMMUNITY DEVELOPMENT COORDINATOR Work Phone: [facility] Work Phone: NEGATED: Highlighted row has not occurred!02-15-2022 tetanus toxoid, reduced diphtheria toxoid, and acellular pertussis vaccine, adsorbed Lydia Grande APRN.COMMUNITY DEVELOPMENT COORDINATOR Work Phone: [facility] Work Phone: Comment on above: Deferred: Postponed Payers Date Payer Category Payer Self-pay [id number] 2021 Medicare AETNA MEDICARE A ETNA MEDICARE PPO [id number] 2021-Present [phone] [address] [place] [address] PP [id number] 2021 Medicare (Managed Care) AETNA DICARE [id number] 2021 Private Health Insurance [facility] [id number] 2021 Medicare [id number] 2010 Unknown [id number] 2002 Medicare [id number] Unknown [id number] Unknown [id number] 2.16.840.1.472566.3.579.2. 462 Unknown [id number] 2.16.840.1.767992.3.579.2. 462 Unknown [id number] 2.16.840.1.420825.3.579.2. 462 Unknown [id number] 2.16840.1.244787.3.579.2. 462 Unknown [id number] 2.16.840.1.789309.3.579.2. 462 Unknown [id number] 2.16.840.1.911760.3.579.2. 462 Unknown [id number] 2.16.840.1.470364.3.579.2. 462 Unknown [id number] 2.16.840.1.363337.3.579.2. 462 Unknown [id number] 2.16840.1.499981.3.579.2. 462 Unknown [id number] 2.840.1.630763.3.579.2. 462 Unknown [id number] 2.840.1.681490.3.579.2. 462 Unknown [id number] 2.840.1.540496.3.579.2. 462 Unknown [id number] 2.840.1.294561.3.579.2. 462 Unknown [id number] 2.840.1.793720.3.579.2. 462 Unknown [id number] 2.840.1.606852.3.579.2. 462 Unknown [id number] 2.840.1.680464.3.579.2. 462 Unknown [id number] 2.840.1.197238.3.579.2. 462 Unknown [id number] 2.840.1.853462.3.579.2. 462 Unknown [id number] 2.840.1.869700.3.579.2. 462 Unknown [id number] 2.840.1.184891.3.579.2. 462 Unknown [id number] 2.16.840.1.569555.3.579.2. 462 Unknown [id number] 2.16.840.1.546320.3.579.2. 462 Unknown [id number] 2.840.1.236878.3.579.2. 462 Unknown [id number] 2.16.840.1.531576.3.579.2. 462 Unknown [id number] 2.16.840.1.436110.3.579.2. 462 Social History Date Type Detail Facility Start: 09-07-2022 End: 03-07-2024 Tobacco smoking status NHIS Ex-smoker [facility] Start: 10-21-1978 End: 10-21-1998 History of tobacco use Current smoker [facility] Start: 10-21-1978 End: 10-21-1998 History of tobacco use Cigarette Smoker [facility] Start: 09-30-2021 End: 12-17-2021 Alcohol intake Current drinker of alcohol (finding) [facility] Start: 02-24-2018 History SDOH Alcohol Comment Rarely [facility] Start: 1945 Sex Assigned At Not on file C [facility] Start: 09-20-2021 End: 05-18-2022 Exposure to SARS-CoV-2 (event) Not sure [facility] Start: 12-13-2021 End: 12-23-2021 Exposure to SARS-CoV-2 (event) Unable to assess [facility] Work Phone: Start: 02-11-2022 End: 11-28-2023 Tobacco smoking status UTIS Unknown if ever smoked [facility] Start: 04-14-2016 None [facility] Start: 01-19-2019 Spouse/ Signif icant Other [facility] Start: 01-19-2019 Non-smoker [facility] Start: 1945 Sex Assigned At Female W [facility] Start: 09-07-2022 End: 01-17-2023 Cigarettes smoked current (pack per day) - Reported 0.5 [facility] Start: 09-07-2022 End: 03-07-2024 Tobacco use and exposure Smokeless tobacco non-user [facility] Work Phone: Start: 01-17-2023 End: 04-04-2024 Tobacco use panel [facility] Start: 06-18-2012 Adult Depression Screening Assessment 2 [facility] Start: 04-04-2024 End: 03-19-2025 Alcoholic beverage intake Ex-drinker (finding) [facility] Has the [employer], [email or web address], [place] [employer] ([employer]), or water [employer] threatened to shut off services in your home in past 12Mo No [facility] (I/We) worried maryuri er (my/our) food would run out before (I/we) got money to buy more. Never true [facility] Start: 09-20-2024 End: 11-03-2024 Sex Female (finding) [facility] How often to you hav e a drink containing alcohol? Never [facility] Medical Equipment Procedure Code Equipment Code Equipment Origin al Text Equipment Identifier Dates [id number], [id number], [id number], [id number], [id number], [id number] Start: 09-24-2020 End: 02-06-2025 Comment on above: Test blood sugar(s) 8 [...] Facility 01-15-2025 Total score [AUDIT-C] 0 01/16/20 25 10:00 AM Ritika Fitzgerald LPN [facility] 08-02-2022 Functional status Ambulates;Bath room Privilege [facility] Work Phone: 07-24-2022 Functional status Ambulates [facility] Work Phone: 07-14-2022 Functional status Ambulates;Bath room Privilege [facility] Work Phone: 01-12-2021 Are you deaf, or do you have serious difficulty hearing No 01/12/2021 3:44 PM EDT Octavio Reza MD No [facility] 01-12-2021 Are you blind, or do you have serious difficulty seeing, even when wearing glasses No 01/12/2021 3:44 PM EDT Octavio Reza MD No [facility] 01-12-2021 Do you have serious difficulty walking or climbing stairs No 01/12/2021 3:44 PM EDT Octavio Reza MD No [facility] 01-12-2021 Do you have difficul ty dressing or bathing No 01/12/2021 3:44 PM EDT Octavio Reza MD No [facility] 01-12-2021 Because of a physica l, mental, or emotional condition, do you have difficulty doing errands alone such as visiting a physician's office or shopping No 01/12/2021 3:44 PM EDT Octavio Reza MD No [facility] Mental Status Date Assessment Result Facility 01-25-2025 Cognitive function Voice/Name [facility] Work Phone: 01-04-2025 Cognitive function Awake;Alert;Appropriat e [facility] Work Phone: 12-19-2024 Cognitive function Awake;Alert;A ppropriate;Fol lows Commands [facility] Work Phone: 11-29-2024 Cognitive function Awake;Alert;A ppropriate;Fol lows Commands [facility] Work Phone: 09-21-2024 Cognitive function Awake;Appropr iate;Follows Commands;Lethargic [facility] Work Phone: 09-20-2024 Cognitive function Awake;Alert;Appropriat e [facility] Work Phone: 07-02-2024 Cognitive function Voice/Name [facility] Work Phone: 06-08-2024 Cognitive function Level Of Cons ciousness Awake;Alert;Appropriate;Fol lows Commands [facility] Work Phone: 05-27-2024 Cognitive function Voice/Name [facility] Work Phone: 05-25-2024 Cognitive function Level Of Cons ciousness Awake;Alert;Appropriate [facility] Work Phone: 11-28-2023 Cognitive function Level Of Cons ciousness Awake;Alert;Appropriate;Fol lows Commands [facility] Work Phone: 11-07-2023 Cognitive function Level Of Cons ciousness Awake;Alert;Appropriate;Fol lows Commands [facility] Work Phone: 11-06-2023 Cognitive function Voice/Name [facility] Work Phone: 10-28-2023 Cognitive function Level Of Cons ciousness Awake;Alert;Appropriate;Fol lows Commands [facility] Work Phone: 09-21-2023 Cognitive function Level Of Cons ciousness Awake;Alert;Appropriate;Fol lows Commands [facility] Work Phone: 09-16-2023 Cognitive function Level Of Cons ciousness Awake;Alert;Appropriate;Fol lows Commands [facility] Work Phone: 05-28-2023 Cognitive function Voice/Name [facility] Work Phone: 11-04-2022 Cognitive function Voice/Name [facility] Work Phone: 10-11-2022 Cognitive function Awake;Alert;A ppropriate;Fol lows Commands [facility] Work Phone: 10-01-2022 Cognitive function Voice/Name [facility] Work Phone: 08-02-2022 Cognitive function Voice/Name;Touch/Anderson blake [facility] Work Phone: 07-31-2022 Cognitive function Voice/Name [facility] Work Phone: 07-24-2022 Cognitive function Voice/Name [facility] Work Phone: 07-14-2022 Cognitive function Appropriate;Cooperativ e [facility] Work Phone: 07-13-2022 Cognitive function Voice/Name [facility] Work Phone: 07-10-2022 Cognitive function Level Of Cons ciousness Awake;Alert;Appropriate;Fol lows Commands [facility] Work Phone: 02-11-2022 Cognitive function Patient Orien tation Person;Place;Time [facility] Work Phone: 01-12-2021 Because of a physica l, mental, or emotional condition, do you have serious difficulty concentrating, remembering, or making decisions No 01/12/2021 3:44 PM EDT Octavio Reza MD No [facility] Clinical Notes 05-11-2021 to 03-29-2025 Telephone Encounter - Octavio Reza MD - 03/29/2025 7:00 PM EDTTelephone Encounter - Octavio Reza MD - 03/29/2025 7:[address] - 03/25/2025 10:00 AM EDTPatient Instructions Note Date & Type Note Facility 03-29-2025 Telephone encounter Note As noted, urine did not show any blood this time and also no WBCs. No further evaluation or treatment needed at this time. [facility] 03-29-2025 Miscellaneous Notes As noted, urine did not show any blood this time and also no WBCs. No further evaluation or treatment needed at this time. Pt calling in asking about recent repeat urinalysis test on 03/26. States she had the repeat done because she had some blood in her urine. Pt asking if there was blood this time. Pt told it was WNL. After provider review, no need to call pt unless something else needs to be done. documented in this encounter [facility] 03-29-2025 Telephone encounter Note Pt calling in asking about recent repeat urinalysis test on 03/26. States she had the repeat done because she had some blood in her urine. Pt asking if there was blood this time. Pt told it was WNL. After provider review, no need to call pt unless something else needs to be done. [facility] 03-25-2025 History of Presen t illness Narrative [facility] Medical Nutrition Therapy Follow up Visit Type: In-Person (Face to Face): Nutritional Visit: MNT/DIABETES Medical Diagnosis: Diabetes NUTRITION DIAGNOISIS STATEMENT:Has Not Changed From Last Encounter Date:10/01/24 NUTRITION REASSESSMENT: DIET HISTORY: Breakfast: scrambled eggs (w/ hot sauce) w/ rye toast and 2x/week grijalva (2-3 strips) Snack: ritz PB cracker Lunch: [employer] salad (w/ tomato/lettuce/blue cheese additional cheese/ ranch dressing) w/ or w/out plain albanian yogurt w/ berries Dinner: [employer] salad (w/ tomato/lettuce/blue cheese additional cheese/ ranch dressing) w/ or w/out plain albanian yogurt w/ berries Snack: ritz PB cracker and yogurt Beverages/Fluids: coffee (w/ milk, at least 2-3 tbsp), 6-7 bottles /day water, SF gatorade DIET HISTORY: 10/01/24 Breakfast: rye toast (1 slice) w/ 2 eggs (w/ hot sauce) and w/or w/out Lunch: [employer] salad w/ PB crackers, OR Sinhala non-fat plain yogurt w/ raspberries Snack: cookie Dinner (4-5P): [employer] Salad (lettuce/ham/chicken/cheese (parmesan cheese)/ dressing:vinegar dressing/half tomato), OR [employer] burger (hamburger w/ bun) Snack: Ritz crackers w/ PB, or 1/2 cookie, or juice, or yogurt w/ raspberries Beverages/Fluids: water, coffee Last 10 Encounter Wt Readings: Date: Wt: 03/19/2025 124.6 kg (274 lb 11.1 oz) 02/06/2025 123.8 kg (273 lb) 01/29/2025 0 kg () 01/15/2025 126 kg (277 lb 12.5 oz) 10/31/2024 131.7 kg (290 lb 6.4 oz) 10/15/2024 131.5 kg (289 lb 14.5 oz) 09/26/2024 134.1 kg (295 lb 10.2 oz) 07/03/2024 137.8 kg (303 lb 12.7 oz) 06/11/2024 139.8 kg (308 lb 3.3 oz) 05/23/2024 140.2 kg (309 lb) BMI: 39.98 kg/m2 CBW (pt reported): 270 lbs Weight Loss to Date: 25 lbs wt loss x ~5 months Patient / Provider Comments: - Pt Elijah present for pt appointment. - Current DM medications: Lantus, Novolog - Monitoring BG with multiple times per day- since mar 21 -- FB mg/dl, 159 mg/dl, 208 mg/dl, 221 mg/dl -- Post-prandial : B-fast 130-26, one instance 92 mg/dl; Lunch 142-278 ; Dinner 200's -Pt states weight loss of 70 lbs over the past several months. Currently experiencing weight stall since ~January. States after meeting with Renetta and when told doing great job pt suspects may have started sliding back into old habits. - Intermittent use of stationary bike (will cycle ~2 miles). Medications: Current Outpatient Medications Medication Sig insulin glargine (LANTUS SOLOSTAR U-100 INSULIN) 100 unit/mL (3 mL) Inject 22 units once daily ACCU-CHEK GUIDE GLUCOSE METER 1 each four times daily. BLOOD GLUCOSE TEST test strip 1 strip as directed. Test blood sugar(s) 8 times daily--Medically Necessary for labile blood sugars (highs and lows). Dx: Other DM Code E10.8, E11.610 Insulin: Yes amLODIPine (NORVASC) 2.5 mg tablet Take 2 tablets by mouth every morning AND 1 tablet every evening. busPIRone (BUSPAR) 5 mg tablet Take 1 tablet by mouth three times a day as needed (anxiety). benzonatate (TESSALON PERLES) 100 mg capsule Take 1 capsule by mouth three times a day as needed for cough. zolpidem (AMBIEN) 5 mg tablet Take 1 tablet by mouth at bedtime as needed for up to 90 days. Needs larger pill dispensed to cut in half. insulin aspart U-100 (NOVOLOG U-100 INSULIN ASPART) 100 unit/mL Inject 4 units with breakfast, 4 units with lunch, 5 units dinner. PLUS SS#1 (1 units for every 50 over 150 PRE MEAL blood sugar) TDD 52 units daily TYPE I DIABETES, insulin dependent, E10.65 SYMBICORT 160-4.5 mcg/actuation inhaler Inhale 2 puffs as instructed two times a day. cholecalciferol, Vitamin D3, (VITAMIN D3) 1,250 mcg [...] 15 mL as instructed two times a day as needed.) glucagon (GVOKE HYPOPEN 1-PACK) 1 mg/0.2 mL auto-injector Inject 1 mg subcutaneously as needed. aspirin, enteric coated (ASPIRIN, ENTERIC COATED) 81 mg EC tablet Take 1 tablet by mouth two times a day. furosemide (LASIX) 20 mg tablet Take 1 tablet by mouth once daily as needed. (Patient taking differently: Take 20 mg by mouth once daily.) Insulin [place], Disposable, (BD ULTRA-FINE FADY PEN NEEDLE) 32 [...] Labs: Lab Results Component Value Date HBA1C 6.9 01/08/2025 HBA1C 7.1 08/20/2024 HBA1C 6.9 05/23/2024 HBA1C 7.7 12/07/2023 HBA1C 7.8 09/02/2021 HBA1C 7.4 05/04/2021 HBA1C 8.4 01/06/2021 Total Cholesterol, Nonfasting Date Value Ref Range Status 08/20/2024 197 <200 mg/dL Final Comment: <200 mg/dL, Desirable 200-239 mg/dL, Borderline high >239 mg/dL, High HDL Cholesterol, Nonfasting Date Value Ref Range Status 08/20/2024 59 >39 mg/dL Final Comment: 40-59 mg/dL, Acceptable >59 mg/dL, High: Negative risk factor for coronary heart disease <40 mg/dL, Low: Positive risk factor for coronary heart disease LDL Cholesterol Calculated, Nonfasting Date Value Ref Range Status 08/20/2024 120 (H) <100 mg/dL Final Comment: <100 mg/dL, Optimal 100-129 mg/dL, Near optimal/above optimal 130-159 mg/dL, Borderline high 160-189 mg/dL, High >189 mg/dL, Very high Secondary prevention optimal LDL Cholesterol levels are recommended to be < 70 mg/dL Triglycerides, Nonfasting Date Value Ref Range Status 08/20/2024 92 <150 mg/dL Final Comment: <150 mg/dL, Normal 150-199 mg/dL, Borderline high 200-499 mg/dL, High >499 mg/dL, Very high Glucose (mg/dL) Date Value 10/01/2024 173 09/11/2021 88 Potassium (mmol/L) Date Value 10/01/2024 4.4 09/11/2021 4.3 Sodium (mmol/L) Date Value 10/01/2024 140 09/11/2021 140 Chloride (mmol/L) Date Value 10/01/2024 102 09/11/2021 102 CO2 (mmol/L) Date Value 10/01/2024 29 09/11/2021 25 Creatinine (mg/dL) Date Value 10/01/2024 0.69 09/11/2021 0.79 BUN (mg/dL) Date Value 10/01/2024 17 09/11/2021 19 Anion Gap (mmol/L) Date Value 10/01/2024 9 09/11/2021 13 Calcium (mg/dL) Date Value 09/11/2021 10.3 Calcium, Total (mg/dL) Date Value 10/01/2024 9.4 Protein, Total (g/dL) Date Value 10/01/2024 6.5 05/04/2021 7.0 Albumin (g/dL) Date Value 10/01/2024 3.9 05/04/2021 3.9 Bilirubin, Total (mg/dL) Date Value 10/01/2024 0.6 05/04/2021 1.0 Alkaline Phosphatase (U/L) Date Value 10/01/2024 74 05/04/2021 122 AST (U/L) Date Value 10/01/2024 21 05/04/2021 15 ALT (U/L) Date Value 10/01/2024 21 05/04/2021 11 GOAL Review from Last Encounter Date:10/01/24. Consume 30-45 g CHO at meals paired with protein source. RESPONSE: in progress BARRIERS/FACTORS IMPACTING COMPLETION OF GOALS: misplaced nutrition handouts NUTRITION INTERVENTION: -Monitoring: BG targets -Healthy Eating: -- Plate Method:1/2 plate non-starchy vegetables, 1/4 plate protein, 1/4 plate starch/grain/fruit -- carbohydrate and protein sources and effect on blood sugar regulation and metabolism -- Encouraged to always pair protein and/or healthy fat with CHO sources. Do not consume naked CHO. -- CHO counting and foods with carbs, portion sizes, and choosing high fiber CHO sources. -- Recommendation for 30-45 grams carb per meal and as needed </=15 grams carb per snack (if BG in 90's and experiencing shakiness). -- Recommendation for 20-30 grams protein per meal and 7 grams protein per snack. -- Portion sizes for commonly eaten carbohydrate foods -- Food label reading for serving size, total carbohydrate, and protein. -- Benefits of fiber in foods and effect on satiety and blood glucose regulation- discussed sources of high fiber foods. -- - Pt notes over the past few months experiencing constipation. Notes was recommended to start taking Milk of Magnesia but notes spiked BG- rec consume w/ meals. Notes tried miralax but did not help w/ constipation. Discussed alternative food options to consider- 4 ounces prune juice at b-fast (count toward CHO goal), or smoothe move tea. --Physical Activity: benefits of exercise, impact of exercise on BG, and types of exercise Education Materials: Healthy You: Survival Skills Healthy You: Planning Healthy Meals Thriving with the Mediterranean Lifestyle New Goal: Consume 30-45 g CHO at meals paired with protein source. Adherence Potential to New Goals/Care Plan: Fair. REVISION OR ADDITION OF NUTRITION DIAGNOSIS STATEMENT: Has Not Changed Plan of Care TBRenetta Ornelas APRN.C* Consult Billing Type: Re-assess/15 minutes, 3 increment(s), 45 minutes Start Time: 9:40 End Time: 10:[address] documented in this encounter [facility] 03-25-2025 Note [facility] 03-22-2025 Telephone encounter Note Patient notified of results and provider's instructions. Patient verbalizes understanding. Vibha Peña LPN [facility] 03-22-2025 Miscellaneous Notes Patient notified of results and provider's instructions. Patient verbalizes understanding. Vibha Peña LPN Please let the patient know her blood counts, TSH, electrolytes, kidney and liver function were normal. The urinalysis indicated a small amount of hidden blood but the urine culture was negative for infection. Repeat urinalysis in one week, if continues to show blood then we will check an ultrasound Arleen Milan APRN.LOCKER ATTENDANT Providers response from results notes. documented in this encounter [facility] 03-22-2025 Telephone encounter Note Please let the patient know her blood counts, TSH, electrolytes, kidney and liver function were normal. The urinalysis indicated a small amount of hidden blood but the urine culture was negative for infection. Repeat urinalysis in one week, if continues to show blood then we will check an ultrasound Arleen Milan APRN.LOCKER ATTENDANT Providers response from results notes. [facility] 03-19-2025 Note [facility] 03-19-2025 History of Presen t illness Narrative CC: Patient presents with: Blood Pressure Check: Home blood pressure running high, flushing cheeks in the am, HPI Recording using [employer] software for draft documentation of the visit was discussed with the patient/authorized patient access representative; all questions welcomed and answered. Patient/authorized patient access representative agreed to proceed The patient is a 79-year-old female with hypertension and diabetes mellitus, presenting for evaluation of persistent facial flushing. Facial Flushing: - Persistent facial flushing x several months, with recent increase in severity. - Flushing is present throughout the day, with notable intensity upon waking. - Describes the flushed area as real red and real hot. - Denies associated fever, chills, body aches, diaphoresis, chest pain, palpitations, dizziness, lightheadedness, or emesis. - Denies tachycardia or feeling of heart racing during flushing episodes. - No known triggers identified; denies new foods or medications. - Consumes hot pepper sauce daily with breakfast. - No history of skin conditions such as rosacea. - Denies alcohol consumption. Elevated Blood Pressure: - Home blood pressure readings elevated, independent of episodes of facial flushing. - Recorded BP of 148/80 mmHg at 0700 and 136/69 mmHg at 0730 today. - Current medications include amlodipine and metoprolol. - Recent change in amlodipine dosage to 2 tablets in the morning and 1 in the evening; patient reports not feeling well with the increased dose and reverted to previous regimen. Review of Systems See HPI PAST MEDICAL HISTORY Diagnosis Date Adverse reaction [...] [Amiloride-Hydrochlorothiazide], Oseltamivir, Doxycycline, Escitalopram, Lysine, Naprosyn [Naproxen], Cxvyogv-Pit-Jfa Reductase Inhibitors, Tylenol-Codeine #3 [Acetaminophen-Codeine], and Ventolin [Albuterol Sulfate] MEDICATIONS insulin glargine (LANTUS SOLOSTAR U-100 INSULIN) 100 unit/mL (3 mL) Inject 22 units once daily ACCU-CHEK GUIDE GLUCOSE METER 1 each four times daily. BLOOD GLUCOSE TEST test strip 1 strip as directed. Test blood sugar(s) 8 times daily--Medically Necessary for labile blood sugars (highs and lows). Dx: Other DM Code E10.8, E11.610 Insulin: Yes amLODIPine (NORVASC) 2.5 mg tablet Take 2 tablets by mouth every morning AND 1 tablet every evening. busPIRone (BUSPAR) 5 mg tablet Take 1 tablet by mouth three times a day as needed (anxiety). benzonatate (TESSALON PERLES) 100 mg capsule Take 1 capsule by mouth three times a day as needed for cough. zolpidem (AMBIEN) 5 mg tablet Take 1 tablet by mouth at bedtime as needed for up to 90 days. Needs larger pill dispensed to cut in half. insulin aspart U-100 (NOVOLOG U-100 INSULIN ASPART) 100 unit/mL Inject 4 units with breakfast, 4 units with lunch, 5 units dinner. PLUS SS#1 (1 units for every 50 over 150 PRE MEAL blood sugar) TDD 52 units daily TYPE I DIABETES, insulin dependent, E10.65 SYMBICORT 160-4.5 mcg/actuation inhaler Inhale 2 puffs as instructed two times a day. cholecalciferol, Vitamin D3, (VITAMIN D3) 1,250 mcg [...] capsule by mouth two times a day. glucagon (GVOKE HYPOPEN 1-PACK) 1 mg/0.2 mL auto-injector Inject 1 mg subcutaneously as needed. aspirin, enteric coated (ASPIRIN, ENTERIC COATED) 81 mg EC tablet Take 1 tablet by mouth two times a day. furosemide (LASIX) 20 mg tablet Take 1 tablet by mouth once daily as needed. Insulin [place], Disposable, (BD ULTRA-FINE FADY PEN NEEDLE) 32 gauge x 5/32 Use one needle for each dose. 1-2 /day. COMPOUNDED PRESCRIPTION Bi-PAP nose pads. (G47.33) THAIS treated with BiPAP ibuprofen 200 mg tablet Take 1-2 tablets by mouth four times daily as needed (Take with food.). --currently only needing 1 pill twice daily to help with cough Chlorhexidine Gluconate (PERIDEX) 0.12 % solution Use 15 mL as instructed two times a day. (Patient taking differently: Use 15 mL as instructed two times a day as needed.) FAMILY HISTORY Problem Relation Age of Onset Heart Father Lipids Father Lipids Mother Hypertension Mother Heart Mother Breast Cancer Maternal Grandmother other (MS) Sister No Known Problems Son SOCIAL HISTORY[1] BP 124/72 Pulse 60 Resp 16 Wt 124.6 kg (274 lb 11.1 oz) SpO2 97% BMI 39.98 kg/m Physical Exam Vitals reviewed. Constitutional: Appearance: Normal appearance. Cardiovascular: Rate and Rhythm: Normal rate and regular rhythm. Heart sounds: Normal heart sounds. No murmur heard. Pulmonary: Effort: Pulmonary effort is normal. Breath sounds: Normal breath sounds. No wheezing, rhonchi or rales. Skin: General: Skin is warm and dry. Coloration: Skin is not pale. Findings: No erythema or rash. Neurological: Mental Status: She is alert. DATA REVIEWED: Most recent labs Assessment/Plan 1. Facial flushing: Facial flushing ongoing for several months, more pronounced upon awakening, without accompanying fever, chills, or other systemic symptoms. Noted potential triggers include daily consumption of hot pepper sauce. - Ordered laboratory tests including urinalysis and blood work (non-fasting) for further evaluation. - Instructed patient to reduce or discontinue spicy pepper intake to assess effect on flushing. - Advised patient to obtain a thermometer and check temperature during episodes of facial flushing. - Will review results and assess need for further interventions or medication adjustments once labs return. 2. Essential (primary) hypertension: Office blood pressure at 124/72 mmHg, which is within desired range. Patient reports intermittent elevated readings at home, potentially related to anxiety or flushing episodes. - No medication changes at this time; patient instructed to continue current regimen. - Encouraged ongoing home blood pressure monitoring and to note any correlations with flushing. Prescription instructions reviewed with patient as applicable. Potential red flag symptoms discussed with the patient. Reviewed appropriate action plan to take if red flag symptoms occur. Patient agreeable to treatment plan. Arleen Milan APRN.LOCKER ATTENDANT [1] Social History Tobacco Use Smoking status: Former Current packs/day: 0.00 Average packs/day: 0.5 packs/day for 20.0 years (10.0 ttl pk-yrs) Types: Cigarettes Start date: 10/21/1978 Quit date: 10/21/1998 Years since quittin.4 Smokeless tobacco: Never Vaping Use Vaping status: Never Used Substance Use Topics Alcohol use: Not Currently Drug use: No documented in this encounter [facility] 03-19-2025 Instructions Arleen Milan APRN.CNP - 03/19/2025 11:37 AM EDT - Eliminate hot or spicy pepper sauces (capsaicin) from your meals for now to see if the facial flushing improves. - Purchase a simple home thermometer and check your temperature whenever your face feels flushed. - Keep your appointment with dietitijenny Tucker next week to review your recent bowel changes. - Discuss your ongoing diarrhea and diet adjustments with Marcela at your April visit. documented in this encounter [facility] 03-14-2025 Telephone encounter Note Please let her know she can take an additional 1 or 2 doses of MiraLAX in addition to the other recommendations below if one dose is not helping. Let us know how she is doing tomorrow. [facility] 03-14-2025 Miscellaneous Notes Please let her know she can take an additional 1 or 2 doses of MiraLAX in addition to the other recommendations below if one dose is not helping. Let us know how she is doing tomorrow. Reason for Conversation Constipation Background Patient calls for constipation. Nurse triage completed and protocol recommends see provider within 3 days. Patient not wanting to come in. Reviewed care advice. If care advice ineffective. Patient will call back for an appt. Taking Miralax or a Equate Stool Stimulant. Will try more fiber in diet, increasing water and activity, and Milk of Magnesia as needed. Closing encounter. Patient to call back if desires appt. Disposition SEE PCP WITHIN 3 DAYS Reason for Disposition Unable to have a bowel movement (BM) without laxative or enema 1. STOOL PATTERN OR FREQUENCY: Daily to every other Day. 2. STRAINING: Sometimes 3. ONSET: Months ago when changed diet to add more salads for diabetes. 5. RECTAL PAIN: Sometimes. Mild. 6. BM COMPOSITION: formed/hard then turn to diarrhea. 7. BLOOD ON STOOLS: No 8. CHRONIC CONSTIPATION: Yes 8. CHANGES IN DIET OR HYDRATION: Months back added more salads. Drinks atleast 64 oz fluids a day and mostly water to keep blood sugars within range. 9. MEDICINES: No Dilaudid, morphine, Percocet, Vicodin. 10. LAXATIVES: Miralax or an Equate Stool Stimulant. Prunes daily. 11. ACTIVITY: No change in activity level. 12. CAUSE: Patient reports dietary changes. 13. MEDICAL HISTORY: No history of hemorrhoids, rectal fissures, rectal surgery, or rectal abscess. 14. OTHER SYMPTOMS: Slight abdomen cramping and maybe a small amount of bloating. No fever, vomiting. No Additional Information on file. Protocols Used [id number] documented in this encounter [facility] 03-14-2025 Telephone encounter Note Reason for Conversation Constipation Background Patient calls for constipation. Nurse triage completed and protocol recommends see provider within 3 days. Patient not wanting to come in. Reviewed care advice. If care advice ineffective. Patient will call back for an appt. Taking Miralax or a Equate Stool Stimulant. Will try more fiber in diet, increasing water and activity, and Milk of Magnesia as needed. Closing encounter. Patient to call back if desires appt. Disposition SEE PCP WITHIN 3 DAYS Reason for Disposition Unable to have a bowel movement (BM) without laxative or enema 1. STOOL PATTERN OR FREQUENCY: Daily to every other Day. 2. STRAINING: Sometimes 3. ONSET: Months ago when changed diet to add more salads for diabetes. 5. RECTAL PAIN: Sometimes. Mild. 6. BM COMPOSITION: formed/hard then turn to diarrhea. 7. BLOOD ON STOOLS: No 8. CHRONIC CONSTIPATION: Yes 8. CHANGES IN DIET OR HYDRATION: Months back added more salads. Drinks atleast 64 oz fluids a day and mostly water to keep blood sugars within range. 9. MEDICINES: No Dilaudid, morphine, Percocet, Vicodin. 10. LAXATIVES: Miralax or an Equate Stool Stimulant. Prunes daily. 11. ACTIVITY: No change in activity level. 12. CAUSE: Patient reports dietary changes. 13. MEDICAL HISTORY: No history of hemorrhoids, rectal fissures, rectal surgery, or rectal abscess. 14. OTHER SYMPTOMS: Slight abdomen cramping and maybe a small amount of bloating. No fever, vomiting. No Additional Information on file. Protocols Used [id number] T [facility] 03-13-2025 Telephone encounter Note Order parthxed Christine Mcelroy MA [facility] 03-13-2025 Miscellaneous Notes Order cled Christine Mcelroy MA Spouse returned call and I explained that her mammography order will be faxed to [facility] once signed off on, he did go ahead and arrange appointment with them for 04/02/25 Pt's called in and reports they had tried calling [facility] Scheduling to get her mammogram scheduled and were not lauro to get through. I let him know we couldn't do anything with getting through to their scheduling department. I thought the mammogram order was already in the computer, but need a new one for this year. Please place order and fax to [facility] [phone]. Tried to call Pt's to let him know I was getting a new order placed, but he didn't answer and no VM was set up. Parris Eckert RN documented in this encounter [facility] 03-12-2025 Telephone encounter Note Spouse returned call and I explained that her mammography order will be faxed to [facility] once signed off on, he did go ahead and arrange appointment with them for 04/02/25 [facility] 03-12-2025 Telephone encounter Note Pt's called in and reports they had tried calling [facility] Scheduling to get her mammogram scheduled and were not lauro to get through. I let him know we couldn't do anything with getting through to their scheduling department. I thought the mammogram order was already in the computer, but need a new one for this year. Please place order and fax to [facility] [phone]. Tried to call Pt's to let him know I was getting a new order placed, but he didn't answer and no VM was set up. Parris Eckert RN [facility] 03-07-2025 Note [facility] 03-07-2025 History of Presen t illness Narrative POPULATION HEALTH NAVIGATION OUTREACH Action/ Returned Call: Patient declining appointment, will call provider's office if needed Reason for Outreach Returned Call/MyChart Patient Contacted: Spoke to patient/parent/or legal guardian Patient identified by name and date of : Yes Returned call/MyChart actions taken: Patient declined: Patient will contact office directly to schedule Navigation Signature: Ramona Nicole March 07, 2025 12:04 PM POPULATION HEALTH NAVIGATION OUTREACH Action/ - HCC F/U: Open HCCs Updated appt notes to address HCCs ------ Called Patient: Unable to leave Voicemail & Sent Mychart. VM Full Reason for Outreach Care Gap/HCC or Scheduling Wellness Visits Care Gaps due: Follow-up Appointment Patient Contacted: Unable or unnecessary to reach patient: Unable to leave message MyChart message sent HCC related Updated appointment notes Navigation Signature: Ramona Nicole March 07, 2025 11:59 AM documented in this encounter [facility] 03-07-2025 Note [facility] 02-28-2025 Telephone encounter Note Patients contacted the office stating the patient has a partial refill of Lantus Solostar. He contacted [facility] pharmacy and they are asking for an order for partial refill to be sent in. Please contact the back at [phone]. [facility] 02-28-2025 Miscellaneous Notes Patients contacted the office stating the patient has a partial refill of Lantus Solostar. He contacted [facility] pharmacy and they are asking for an order for partial refill to be sent in. Please contact the back at [phone]. documented in this encounter [facility] 02-25-2025 History of Presen t illness Narrative Primary Care Pharmacy Visit CC (Reason for Consult): (E10.8) 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) (primary encounter diagnosis) Goal(s): A1c <8% Last Collaborating Provider Visit: 02/06/25 with Renetta Mcgee CNP (referral to dietitian placed, no med changes) Attila Kidd is a 79 year old female presenting for follow up visit telephone call. Patient consents to pharmacy collaborative practice agreement. Last Pharmacy Visit: 12/18/24 HPI: On speaker phone with patient and spouse, Elijah Reports doing well States she is frustrated with not being able to lose weight, was recommended to meet with dietitian which she will be meeting with next month Current DM Medications: Lantus 22 units once daily Insulin aspart 4 units with breakfast, 4 units with lunch, 5 units with dinner + SS#1 Diet Breakfast is always the same - 1 piece rye toast, 2 eggs, coffee; occasionally has a piece of grijalva Eating a lot of salads GLYCEMIC CONTROL: Glucometer present at visit: BG log present Hypoglycemia: Yes - has symptoms of feeling faint and shaky SMBGS (Fingersticks) Date Fasting AM Insulin dose 2 hr PP Before Lunch Insulin dose 2 hr PP Before Dinner Insulin dose 2 hr PP Bedtime Basal Insulin 02/25 115 4 02/24 155 5 87* 163 5 248 7 179 22 02/23 113 4 208 6 228 7 150 111* 133 167 22 02/22 135 4 58* 89 247 6 129 5 135 190 22 8 159 5 156 161 5 161 127 5 154 148 157 22 8 181 5 84 210 6 228 247 7 100 155 22 02/19 87* 116 4 73* 102 241 6 124 121 5 125 121 22 8 146 4 89 167 170 5 208 213 7 232 240 22 8 167 5 163 5 147 213 193 6 291 240 22 AVG 137 100 195 173 191 169 167 *snack; treats lows with apple juice Past medical history reviewed. ALLERGIES[1] Current Outpatient Medications Medication Sig Dispense Refill ACCU-CHEK GUIDE GLUCOSE METER 1 each four times daily. 1 each 0 BLOOD GLUCOSE TEST test strip 1 strip as directed. Test blood sugar(s) 8 times daily--Medically Necessary for labile blood sugars (highs and lows). Dx: Other DM Code E10.8, E11.610 Insulin: Yes 300 strip 11 amLODIPine (NORVASC) 2.5 mg tablet Take 2 tablets by mouth every morning AND 1 tablet every evening. 90 tablet 2 busPIRone (BUSPAR) 5 mg tablet Take 1 tablet by mouth three times a day as needed (anxiety). 90 tablet 2 benzonatate (TESSALON PERLES) 100 mg capsule Take 1 capsule by mouth three times a day as needed for cough. 30 capsule 2 zolpidem (AMBIEN) 5 mg tablet Take 1 [...] two times a day. 11 g 5 cholecalciferol, Vitamin D3, (VITAMIN D3) 1,250 mcg (50,000 unit) cap capsule Take 1 capsule by mouth one time a week. 12 capsule 4 mometasone (ELOCON) 0.1 % cream Apply to affected area once daily as needed (for scalp psoriasis). For 14 days. Treat for recurrences. Apply at bedtime then wash off in the morning 45 g 1 albuterol HFA (PROVENTIL HFA, VENTOLIN HFA) 90 mcg/actuation inhaler Inhale 2 Puffs as instructed four times a day as needed. FOR WHEEZING AND SHORTNESS OF BREATH. 1 Each 1 metoprolol tartrate, short acting, (LOPRESSOR) 50 mg tablet Take 1/2 tablet by mouth twice a day 90 tablet 3 ramipril (ALTACE) 10 mg capsule Take 1 capsule by mouth two times a day. 180 capsule 3 Chlorhexidine Gluconate (PERIDEX) 0.12 % solution Use 15 mL as instructed two times a day. (Patient taking differently: Use 15 mL as instructed two times a day as needed.) glucagon (GVOKE HYPOPEN 1-PACK) 1 mg/0.2 mL auto-injector Inject 1 mg subcutaneously as needed. 0.2 mL 3 aspirin, enteric coated (ASPIRIN, ENTERIC COATED) 81 mg EC tablet Take 1 tablet by mouth two times a day. furosemide (LASIX) 20 mg tablet Take 1 tablet by mouth once daily as needed. (Patient taking differently: Take 20 mg by mouth once daily.) 90 tablet 3 Insulin [place], Disposable, (BD ULTRA-FINE FADY PEN NEEDLE) 32 [...] Rx coverage: Payor: T MEDICARE / Plan: [facility] MEDICARE PPO / Product Type: PPO / Medications affordable? Yes EXAM: There were no vitals taken for this visit. Last 3 Encounter BP Readings: Date: BP: 02/06/2025 132/88 01/29/2025 148/72 01/15/2025 138/80 Wt: 123.8 kg (273 lb) BMI: 39.74 kg/(m^2) LABS: Lab Results Component Value Date HBA1C 6.9 01/08/2025 HBA1C 7.1 08/20/2024 HBA1C 6.9 05/23/2024 HBA1C 7.7 12/07/2023 HBA1C 7.8 09/02/2021 HBA1C 7.4 05/04/2021 HBA1C [...] diabetic education issues of hypoglycemic/hyperglycemic symptoms - Advised patient to contact office if experiencing more frequent hypoglycemia and/or with any significant diet changes after meeting with dietitian - Follow up in 3 months, sooner should any other issues arise. Overdue Diabetes Health Maintenance: Up to date on diabetes-related health maintenance Follow Up: Next PCP visit: 07/23/25 Next endo visit: 05/08/25 Next PharmD visit: 05/20/25 Charis Lucas, ArmandoD, BCACP Primary Care Clinical Contract Clerk [1] Allergies Allergen Reactions Hctz [Amiloride-Hyd* Other: See Comments Rapid heart beat, nausea, light eaded. (lasted about 12 hours after first dose) Oseltamivir Mental Status Change hallucinations Doxycycline GI Upset Escitalopram Intolerance Fatigued after just a half pill dose. Did not want to take anymore. Lysine Itching Naprosyn [Naproxen] GI Upset Nausea Szzdkeb-Tif-Erw Red* Myalgia Tylenol-Codeine #3 * Vomiting Ventolin [Albuterol* GI Upset, Vomiting documented in this encounter [facility] 02-25-2025 Note [facility] 02-06-2025 History of Presen t illness Narrative OFFICE VISIT PROGRESS NOTE CC Attila Kidd is a 79 year old who presents today for blood sugar review, insulin dose review, adjust. HPI Diagnosed with diabetes mellitus type 1, ~ 2005 Last endocrine OV 10/31/2024 Some elements copied from my note 10/31/2024 which have been updated where appropriate, and all reflect current medical decision making from date of this visit. HPI 02/06/2025 Doing well Bored with her daily diet and wants to lose weight - I'm just stuck at this weight' CURRENT DM MEDS NOVOLOG 4-4-5 plus SS#1 LANTUS 22 units once daily SMBG Type of Monitor: Other Frequency of Monitorin times a day BG Values: Ranges 112 - 208 HIGH: 238 LOW: 81 Hypoglycemia: no Diet: Lower carbohydrate Exercise: limited DM REVIEW OF SYSTEMS Last Eye Exam : yearly Last Podiatry Exam: Cardiorespiratory: negative, denies chest pain, pressure Claudication: no Dyslipidemia: Yes, controlled on medication High Blood Pressure: Yes, controlled on medication CURRENT LABS Latest Ref Rng 08/20/2024 01/08/2025 Hemoglobin A1C 4.3 - 5.6 % 7.1 (H) 6.9 (H) Estimated Average Glucose mg/dL 157 151 Vitamin D 25 Hydroxy 31.0 - 80.0 ng/mL 75.3 Latest Ref Rng 05/23/2024 08/20/2024 01/08/2025 Hemoglobin A1C 4.3 - 5.6 % 7.1 (H) 6.9 (H) Estimated Average Glucose mg/dL 157 151 Hemoglobin A1C (POCT) 4.3 - 5.6 % 6.9 ! Legend: ! Abnormal (H) High Recent Labs 06/0971709/14/22 0709/02/23 0530 12/07/23 1133 01/27/24 0712 05/23/24 1238 08/20/24 0718 10/01/24 0934 10/01/24 0941 01/08/25 0711 ALT 15 < > -- -- 12 -- 15 21 -- -- AST 16 < > -- -- 14 -- 18 21 -- -- UCRR 212.6 -- 78.0 -- -- -- 24.5 -- 44.9 -- UALBR 14.6 -- <12.0 -- -- -- <12.0 -- <12.0 -- UALBCR 7 -- <15 -- -- -- -- -- <27 -- TPROT 7.0 < > -- -- 6.7 -- 7.1 6.5 -- -- ALB 3.8* < > -- -- 3.9 -- 4.2 3.9 -- -- CA 9.2 < > -- -- 9.4 -- 9.8 9.4 -- -- TBILI 1.3 < > -- -- 0.8 -- 1.0 0.6 -- -- ALKPHOS 112 < > -- -- 101 -- 83 74 -- -- GLUC 113* < > -- -- 114* -- 149* 173* -- -- BUN 18 < > -- -- 18 -- 22* 17 -- -- CREAT 0.92 < > -- -- 0.77 -- 0.71 0.69 -- -- NA 138 < > -- -- 139 -- 139 140 -- -- K 3.9 < > -- -- 4.1 -- 4.1 4.4 -- -- CHLOR 102 < > -- -- 102 -- 103 102 -- -- CO2 27 < > -- -- 28 -- 27 29 -- -- ANION 9 < > -- -- 9 -- 9 9 -- -- EGFROTH 65 < > -- -- 79 -- 87 88 -- -- HBA1C 7.9* < > -- < > -- 6.9* 7.1* -- -- 6.9* < > = values in this interval not displayed. Recent Labs 12/24/21 0718 09/14/22 0724 05/16/23 0725 12/07/23 1133 01/27/24 0712 05/23/24 1238 08/20/24 0718 01/08/25 0711 TG 87 76 -- -- 77 -- 92 -- CHOL 173 186 -- -- 175 -- 197 -- HDL 54 73 -- -- 62 -- 59 -- VLDL 17 15 -- -- 15 -- 18 -- LDL 102* 98 -- -- 98 -- 120* -- FASTTIME 12 10 -- -- 10 -- -- -- TCHDL 3.20 2.55 -- -- 2.82 -- 3.34 -- LDLHDL 1.89 1.34 -- -- 1.58 -- 2.03 -- NONHDL 119 113 -- -- 113 -- 138* -- HBA1C 7.9* 7.3* < > 7.7* -- 6.9* 7.1* 6.9* HBA0 180 163 < > 174 -- -- 157 151 < > = values in this interval [...] use: No Current Outpatient Medications Medication Sig amLODIPine (NORVASC) 10 mg tablet Take 1 [...] larger pill dispensed to cut in half. insulin aspart U-100 (NOVOLOG U-100 INSULIN ASPART) [...] tablet by mouth once daily as needed. flash glucose sensor (FREESTYLE RAISSA 2 SENSOR) kit Apply new sensor every fourteen (14) days to upper arm. (Patient not taking: Reported on 05/23/2024) Insulin [place]ol[place], Disposable, (BD ULTRA-FINE FADY PEN NEEDLE) 32 [...] Lysine Itching Naprosyn [Naproxen] GI Upset Nausea Whmzpjq-Bro-Pwj Red* Myalgia Tylenol-Codeine #3 * Vomiting Ventolin [...] hypertension, CHF or palpitations PHYSICAL EXAMINATION: BP 132/88 (BP Site: Right Arm, BP Position: Sitting, BP Cuff Size: Large Adult) Pulse 64 Resp 19 Ht 176.5 cm (5' 9.5) Wt 123.8 kg (273 lb) SpO2 95% BMI 39.74 kg/m GENERAL: alert and appropriate, in no distress, well-hydrated, well nourished, and happy, smiling, interactive SKIN: no rash noted HEAD: normocephalic, no abnormality or lesion noted EYES: pupil sizes are equal NECK: no obvious neck swelling or mass ACANTHOSIS: none noted EXTREMITIES: normal NEUROLOGIC: no facial droop, speech is clear and fluent and no obvious deficit ASSESSMENT/PLAN (E10.9) Diabetes mellitus type 1, controlled, without complications (HCC) (primary encounter diagnosis) Comment: Well controlled per current, no changes to insulin dosing at this time Reinforced NO STACKING of insulin, do not dora blood sugars, do not add extra in between meal insulin 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 Plan: Renetta Mcgee CNP documented in this encounter [facility] 02-06-2025 Note [facility] 01-30-2025 Telephone encounter Note Call received from Pt - name & verified. Pt calls in a panic because I forgot to give myself my 5 units of insulin before I ate my lunch. What do I do now? Timeline: 0930: pre-meal glucose 158 0935: LUNCH 0955: Pt self-administered 2 units of Novolog 1000: glucose 183 1015: glucose 190 1023: phone call to this RN 1040: Pt administered 3 units of Novolog 1140: Instructed Pt/spouse (on speaker phone) to recheck glucose; as long as glucose is less than 190, she does not need to call back. Pt plans to eat dinner between 1430 and 1500. Instructed her to check glucose and administer Novolog ~15 minutes prior to dinner. She voices understanding. Pt was able to read back instructions given. She reports she is going to make a to-do list so she doesn't forget to take her insulin again. Spouse present on speaker phone for entire conversation and voices understanding, as well. Norma Devlin RN January 30, 2025 10:55 AM [facility] 01-30-2025 Miscellaneous Notes Call received from Pt - name & verified. Pt calls in a panic because I forgot to give myself my 5 units of insulin before I ate my lunch. What do I do now? Timeline: 30: pre-meal glucose 158 0935: LUNCH 55: Pt self-administered 2 units of Novolog 1000: glucose 183 1015: glucose 190 1023: phone call to this RN 1040: Pt administered 3 units of Novolog 1140: Instructed Pt/spouse (on speaker phone) to recheck glucose; as long as glucose is less than 190, she does not need to call back. Pt plans to eat dinner between 1430 and 1500. Instructed her to check glucose and administer Novolog ~15 minutes prior to dinner. She voices understanding. Pt was able to read back instructions given. She reports she is going to make a to-do list so she doesn't forget to take her insulin again. Spouse present on speaker phone for entire conversation and voices understanding, as well. Norma Devlin RN January 30, 2025 10:55 AM documented in this encounter [facility] 01-29-2025 History of Presen t illness Narrative SUBJECTIVE Attila Kidd is a 79 year old female here today for a check up on her medical problems. Chief Complaint Patient presents with: Hospital Follow Up HPI Attila Kidd is a 79-year-old female with a history of type 1 diabetes mellitus, HTN, and anxiety, presenting for follow-up after a recent ED visit for hyperglycemia and chest pain. Attila reports a recent ED visit due to hyperglycemia with blood glucose levels approaching 300 mg/dL. She expresses concern about going to sleep with elevated blood glucose levels. During the ED visit, she also reported experiencing chest pain described as a hotness across her chest. She notes that all tests conducted in the ED were normal, and the attending physician attributed her symptoms to anxiety, consistent with previous evaluations. She mentions a history of multiple ED visits for similar symptoms and expresses a desire to avoid unnecessary visits in the future. Attila is under the care of a extruder operator multiple, who has also attributed her symptoms to anxiety. She is currently taking amlodipine 10 mg, divided into 5 mg in the morning and 2.5 mg in the evening, for elevated blood pressure. She reports difficulty with the current dosing regimen and expresses a preference for a simplified medication schedule. Attila also reports experiencing upper abdominal discomfort, which she describes as pressure and gas. She notes that taking Tums provides relief. She denies bloating or belching but mentions experiencing gas. She has a history of taking Prilosec but discontinued it some time ago. Attila reports significant weight loss, approximately 67 lbs, since October 2023, with a current weight of 277 lbs. She attributes this to dietary changes, including consuming two eggs and a piece of toast for breakfast and salads for the rest of the day. She notes difficulty with bowel movements, describing them as hard and incomplete. She has been taking Miralax and Maalox without significant improvement. She drinks 6-8 bottles of water daily and denies any issues with hydration. Her medications were reviewed today and her list is now up to date. Medications Current Outpatient Medications Medication Sig benzonatate (TESSALON PERLES) 100 mg capsule Take 1 capsule by mouth three times a day as needed for cough. zolpidem (AMBIEN) 5 mg tablet Take 1 tablet by mouth at bedtime as needed for up to 90 days. Needs larger pill dispensed to cut in half. insulin aspart U-100 (NOVOLOG U-100 INSULIN ASPART) [...] by mouth once daily as needed. Insulin [place], Disposable, (BD ULTRA-FINE FADY PEN NEEDLE) 32 gauge x 32 Use one needle for each dose. 1-2 /day. COMPOUNDED PRESCRIPTION Bi-PAP nose pads. (G47.33) THAIS treated with BiPAP ibuprofen 200 mg tablet Take 1-2 tablets by mouth four times daily as needed (Take with food.). --currently only needing 1 pill twice daily to help with cough amLODIPine (NORVASC) 2.5 mg tablet Take 2 tablets by mouth every morning AND 1 tablet every evening. busPIRone (BUSPAR) 5 mg tablet Take 1 tablet by mouth three times a day as needed (anxiety). flash glucose sensor (FREESTYLE RAISSA 2 SENSOR) [...] Lysine Itching Naprosyn [Naproxen] GI Upset Nausea Dykuphy-Afz-Xgo Red* Myalgia Tylenol-Codeine #3 * Vomiting Ventolin [Albuterol* GI Upset, Vomiting ACTIVE PROBLEM LIST Nocturnal Hypoxemia - 09/22/2023 Major Depressive Disorder, Recurrent, in Full Remission - 06/25/2023 Palpitations - 05/16/2023 Paroxysmal Svt (Supraventricular Tachycardia) ([facility]) - 11/12/2022 Adverse Reaction to Hmg-Coa Reductase Inhibitor - 06/07/2022 Comment: Historical: see allergies Stasis Edema of Both Lower Extremities - 04/27/2018 Morbid Obesity With Bmi of 45.0-49.9, Adult ([facility]) - 04/18/2017 Asthma ([facility]) - 05/06/2014 Vitamin D Deficiency - 08/21/2010 Charcot Foot Due to Diabetes Mellitus ([facility]) Debility - 09/30/2009 Rosacea - 09/06/2007 Insomnia, Unspecified - 06/01/2007 Type I Diabetes Mellitus With Manifestations ([facility]) - 09/15/2005 Essential Hypertension - 09/15/2005 Arthropathy [...] of Systems Constitutional: Negative. Respiratory: Negative. Cardiovascular: Positive for chest pain. Negative for palpitations and leg swelling. OBJECTIVE BP 148/72 Pulse 56 Resp 16 Wt 0 lb (0.0kg) Physical Exam Vitals and nursing note reviewed. [...] normal. Judgment: Judgment normal. ASSESSMENT/PLAN: 1. Type 1 diabetes mellitus with hyperglycemia (HCC) (E10.65) Recent episode of hyperglycemia with blood glucose levels approaching 300 mg/dL, prompting an ER visit. Patient is under the care of traffic personnel supervisor Dr. Reza, with a follow-up scheduled in July. - Continue current diabetes management. - Monitor blood glucose levels closely. - Follow-up with Dr. Reza in July or sooner if issues arise. 2. Anxiety (F41.9) Experiencing anxiety-related symptoms, including chest pain and a sensation of heat across the chest. Symptoms have led to multiple ER visits. Patient reports longstanding anxiety about various situations. - Prescribed Buspirone 5 mg, to be taken up to three times daily as needed. - Discussed potential side effects, including dizziness at higher doses. - Patient may start with half a tablet to assess tolerance. 3. Slow transit constipation (K59.01) Recent dietary changes have led to constipation, with difficulty passing stools and concerns about potential tearing. Patient is drinking adequate water (6-8 bottles daily). - Recommended probiotics to help restore gut health. - Advised increasing dietary fiber gradually. - Suggested trying prunes, pears, and peaches, while monitoring blood sugar levels. 4. Essential (primary) hypertension (I10) Currently managed with Amlodipine 10 mg daily, taken as 5 mg in the morning and 2.5 mg in the evening. Blood pressure has been elevated. - Prescribed Amlodipine 2.5 mg tablets; take two tablets in the morning and one tablet in the evening. - Patient to use up current 10 mg tablets by taking half in the morning and one 2.5 mg tablet in the evening. 5. Gastroesophageal reflux disease without esophagitis (K21.9) Experiencing occasional chest pain and discomfort, relieved by Tums. Previously managed with Prilosec. - Continue using Tums as needed for symptom relief. - Discussed the option of resuming Prilosec if symptoms persist. - Advised trying soda water (1 teaspoon to 1 tablespoon) for additional relief. 6. Class 3 severe obesity due to excess calories with body mass index (BMI) of 40.0 to 44.9 in adult, unspecified whether serious comorbidity present (HCC) (E66.813) Significant weight loss achieved, with current weight at 277 lbs, down from 344 lbs in October 2023. Patient is following a diet primarily consisting of eggs, toast, and salads. - Continue current dietary regimen. - Monitor weight and adjust diet as needed to ensure safe and sustainable weight loss. - Follow-up appointment scheduled for March 01, including blood work to check blood counts, blood sugar, and kidney function. Portions of this note have been entered [...] as well as compliance with taking medications. Age-appropriate health preventative measures were discussed. Return if symptoms worsen or fail to improve, for Keep next scheduled appointment.. Davon Wolfe APRN-FABIO documented in this encounter [facility] 01-29-2025 Note [facility] 01-25-2025 Discharge summary [facility] 01-25-2025 Discharge summary Note Date/Time January 25, 2025 10:11pm [facility] Medical Records Department [address] [place] [id number] Emergency Department Summary 01/25/25 MR#: [id number] Acct: [id number] Name: ATTILA KIDD Rep #:[id number] : 1945 79 From: Mark Leong MD PCP: Dr. Octavio Reza MD Status:RE G ER Location: ED HPI History of Present Illness Chief Complaint: Palpitations Detail of Chief Complaint: Palpitations, elevated blood sugar and I am anxious Informant: patient Onset/Context/Timing Onset: Today Context: Sudden Onset Timing: Continuous Quality: Palpitations and blood sugar greater than 200 Location: Cardiovascular endocrine Current Severity: Mild Maximum Severity: Moderate Worsened by: Nothing with regards to the hyperglycemia. Patient has history of anxiety Relieved by: Nothing Associated Symptoms Associated Symptoms: Anxiousness and over apologetic Narrative Narrative: Patient is 79-year-old woman. She has a history of type 1 diabetes, palpitations, obstructive sleep apnea, essential hypertension, PSVT, hyperlipidemia, obstructive sleep apnea. She presents with palpitations. Bloodsugar was high starting at 5 PM. She states her blood sugar was under 1 good control until then. She denies fever, chills night sweats. She denies weight gain or weight loss. She denies headache, visual, ocular auditory symptoms. She denies any upper respiratory infectious symptoms. She denies cardiac or respiratory symptoms such as dyspnea, dyspnea on exertion. She denies orthopnea or PND. She denies abdominal pain, nausea, vomit or diarrhea. She denies dysuria, frequency, urgency or hematuria. Recent Illness/Hospitalization: No PFSH PFS Medical History THAIS (obstructive sleep apnea) Hyperglycemia [...] 2 puff inhalation BID THMA 12/21/21 02/06/24 His tory mcg-4.5 mcg/actuation aerosol inhaler zolpidem 5 mg tablet 2.5 mg PO QHS PRN Insomnia 0 02/11/22 Unknown History insulin lispro 100 unit/mL 6 unit subcut TIDCM dm 12/01/0602/06/24 History subcutaneous solution omeprazole magnesium 20 mg 20 mg PO DAILY GERD 2 02/06/24 History tablet,delayed release (Prilosec OTC) metoprolol tartrate 50 mg tablet 25 mg PO Q12H heart r ate, BP 10/01/23 02/06/24 History blood sugar diagnostic (OneTouch 02/06/24 Unknown His tory Ultra Test strips) mometasone 0.1 % topical cream 1 applic topical QDAY P RN skin 06/13/24 Unknown History irritation furosemide 20 mg tablet 10 mg PO DAILY water pill Unknown History amlodipine 10 mg tablet 10 mg PO BID 01/14/25 Unknow n History aspirin 81 mg tablet,delayed 81 mg PO BID heart health 01/14/25 Unknown History release insulin glargine 100 unit/mL (3 22 unit subcut QHS Unknown History mL) subcutaneous pen (Lantus Solostar U-100 Insulin) Allergy/AdvReac Type Severity Reaction Status Date / Time hydromorphone Allergy Severe Anaphylaxis Verified 01/25/25 20:41 tramadol Allergy Severe Anaphylaxis Verified 01/25/25 20:41 amiodarone Allergy Intermediate Swelling Verified 01/25/25 20:41 [place] And Derivatives Allergy Intermediate Hives Verified 01/25/25 20:41 morphine Allergy Intermediate confusion Verified 01/25/25 20:41 moxifloxacin Allergy Intermediate Shortness Verified 01/25/25 20:41 of breath nabumetone Allergy Intermediate damaged Verified 01/25/25 20:41 kidney penicillin G Allergy Intermediate TURNS BLUE Verified 01/25/25 20:41 propoxyphene Allergy Intermediate PT UNSURE Verified 01/25/25 20:41 OF REACTION amlodipine Allergy Mild Abd Verified 01/25/25 20:41 cramps/diarrhea desloratadine Allergy Mild headache Verified 01/25/25 20:41 glutamine (From Airborne Allergy Mild Itching Verified 01/25/25 20:41 (ascorbate sodium)) herbal complex no.124 (From Allergy Mild Itching Verified 01/25/25 20:41 Airborne (ascorbate sodium)) hydrocodone (From [place]) Allergy Mild dystonia Verified 01/25/25 20:41 lysine HCl (From Airborne Allergy Mild Itching Verified 01/25/25 20:41 (ascorbate sodium)) multivitamin with minerals Allergy Mild Itching Verified 01/25/25 20:41 (From Airborne (ascorbate sodium)) pravastatin Allergy Unknown unknown Verified 01/25/25 20:41 rosuvastatin (From Crestor) Allergy Unknown myalgias Verified 01/25/25 20:41 simvastatin Allergy Unknown unknown Verified 01/25/25 20:41 escitalopram Allergy Other Verified 01/25/25 20:41 hydrochlorothiazide Allergy Other Verified 01/25/25 20:41 oseltamivir (From Tamiflu) AdvReac Severe HALLUCINATI Verified 01/25/25 20:41 ONS Jmlgsyp-HOX-KxE Reductase AdvReac Severe myalgias Verified 01/25/25 20:41 Inhibitor (Ezmnxme-Uvx-Snq Reductase Inhibitor) amoxicillin (From Augmentin) AdvReac Other Verified 01/25/25 20:41 clavulanic acid (From AdvReac Other Verified 01/25/25 20:41 Augmentin) codeine AdvReac Nausea Verified 01/25/25 20:41 naproxen (From Naprosyn) AdvReac Nausea Verified 01/25/25 20:41 Family History Mother Aortic stenosis Presence of permanent cardiac pacemaker Surgical History History of herniorrhaphy Status post ORIF of fracture of ankle History of tonsillectomy History of cholecystectomy Social History household members: spouse housing: house Smoking Status: Former smoker alcohol intake: never substance use type: does not use caffeine: Yes Type: coffee Number of servings: 3 ROS ROS ED Constitutional Constitutional ED: Denies chills, fever(s), subjective, sweats or weight loss Eyes Eyes: Denies blurry vision, change in vision or diplopia ENT ENT ED: Denies rhinorrhea or sore throat Cardiovascular Cardiovascular: Reports palpitations; Denies chest pain, orthopnea, paroxysmal nocturnal dyspnea or racing heartbeat Respiratory/Chest Respiratory/Chest: Denies cough, dyspnea, dyspnea on exertion, orthopnea or paroxysmal nocturnal dyspnea Gastrointestinal Gastrointestinal: Denies abdominal pain, diarrhea, nausea or vomiting Genitourinary Genitourinary ED: Denies dysuria, hematuria or urinary frequency Musculoskeletal Musculoskeletal: Denies arthralgias or myalgias Integumentary Denies rash Neurologic Neurologic: Denies headache(s) Psychiatric Psychiatric: Reports anxiety Endocrine Endocrinology: Denies polydipsia or polyuria Hematologic/Lymphatic Hematologic/Lymphatic: Reports systems reviewed and no addt'l complaints, exceptas documented EXAM Physical Exam Const Vital Signs: 01/25/25 20:39 01/25/25 20:49 01/25/25 21:38 Temperature 97.5 F L Temperature Source Oral Pulse Rate 66 66 Respiratory Rate 18 18 Respiratory Effort Normal Non-Labored Respiratory Pattern Normal Blood Pressure 164/78 H 171/71 H Blood Pressure Mean 106 104 Pulse Ox 96 94 Oxygen Delivery Method Room Air Room Air Positive well nourished and well developed Constitutional Narrative: Patient is in no distress. She is anxious and talks very quickly. She apologizes repeatedly. Her blood pressure was elevated 164/78. BMI is greater than 40 General Appearance ED: well developed and pallor HEENT Reports moist mucous membranes HEENT Narrative: Head is atraumatic normocephalic. Ears normal. Nares patent. Eyes PERRL and EOMs intact bilaterally General Eye ED: Negative for pale conjunctiva or scleral icterus Neck no lymphadenopathy and supple Chest Wall inspection of chest normal and palpation of chest normal Resp normal respiratory effort and clear to auscultation bilaterally Cardio regular rate, regular rhythm, S1 normal heart sound, S2 normal heart sound and no murmurs GI normal to inspection, nondistended, normoactive bowel sounds, non-tender, non-distended and no masses; Negative for hepatosplenomegaly GI Narrative: Abdominal exam is limited due to body habitus. Extremity Negative for normal to inspection General Extremety ED: Yes edema General Extremity: edema Neuro oriented x3 and CN's II-XII intact bilaterally Sensorium / Orientation: alert Psych Mood & Affect: anxious Skin no wounds and skin turgor normal General Skin Exam: pallor; Negative for jaundice MDM MDM MDM Narrative Medical decision making narrative: BGT was 285. BMP revealed a blood sugar of 295 with normal CO2 anion gap. Patient has mild pseudohyponatremia. Prior records were reviewed. History & Record Review Additional record(s) reviewed:: Prior ED visit (She was seen in the ER January 04 for chest pain. She was seen December 19 in the ER for anxiety. She had other minorcomplaints and visits to the ER this past year.) and Prior labs Lab Data Labs: Laboratory Results - last 24 hr 01/25/25 01/25/25 20:51 21:07 Sodium 132 L Potassium 4.3 Chloride 97 L Carbon Dioxide 23.3 Anion Gap 13 BUN 21 H Creatinine 0.95 Est GFR (MDRD) Non-Af 61 BUN/Creatinine Ratio 21.8 H Glucose 295 H Calcium 9.1 POC Glucose 285 H Treatment and Re-Evaluation :: Blood sugars checked 1 hour after she received insulin. It is now up to 80. Patient was told it takes approximately 1 to 2 hours for the insulin to start working. She was instructed to continue taking her insulin and take her Lantus dose as scheduled this evening. Discharge Plan Triage Chief Complaint: Palpitations ED Provider: Mark Leong Dx/Rx/DC Orders Clinical Impression: Palpitations, Essential hypertension, THAIS (obstructive sleep apnea), Hyperlipidemia, Type 1 diabetes mellitus with hyperglycemia, Anxiety Instructions: ED Diabetic Hyperglycemia, ED Palpitations Prescriptions: No Action aspirin 81 mg tablet,delayed release (DR/EC) 81 mg PO BID cholecalciferol (vitamin D3) 1,250 mcg (50,000 unit) [...] 0.1 % cream 1 applic topical QDAY PRN (Reason: skin irritation) amlodipine 10 mg tablet 10 mg PO BID ramipril 10 MG capsule 10 mg PO BID Patient Comments: TAKE 1 CAPSULE BY MOUTH TWICE DAILY zolpidem 5 mg Tablet 2.5 mg PO QHS PRN (Reason: Insomnia) metoprolol tartrate 50 mg tablet 25 mg PO Q12H Patient Comments: takes half tablet in morning and night (DME) OneTouch Ultra Test Strip MISCELLANEOUS Patient Comments: [NO ORIGINAL SIG] insulin glargine [Lantus Solostar U-100 Insulin] 100 unit/mL (3 mL) insulin pen 22 unit subcut QHS Primary Care Provider: Octavio Reza Referrals: Octavio Reza MD [Primary Care Provider] - 3-5 Days Activity Restrictions/Additional Instructions: Take your insulin dose tonight as scheduled Print Language: [place] Disposition Disposition: Home, Self Care What to do if you have Problems For any increased pain, shortness of breath, bleeding, nausea or vomiting, chestpain, or any unexpected problems, contact your Primary Care Provider. Call [facility] ([phone]) or report to the closest Emergency Room. Call 911 if necessary. 01/25/251 <Electronically signed by Mark Leong MD> Cosigner Signature (if applicable): CC: Dr. Octavio Reza MD ~ Signed [facility] Work Phone: 1(930) 941-477107-01-2025 [facility] History of Present illness Narrative* Octavio Reza MD - 01/15/2025 10:13 AM EDT Images from the original note were not included. This note was created using [employer]. Subjective Attila Kidd is a 79 year [...] She is under the care of a extruder operator multiple, ALEN Mcgregor, at [facility]. She has two sisters and no brothers, [...] daily but has been advised by her extruder operator multiple to take a whole tablet once daily. She is also on metoprolol 50 mg, half a pill BID, and ramipril 10 mg BID. She hasTessalon Perles on hand for cough, which she finds effective for occasional throat irritation. She takes Lasix as needed and was recently prescribed simethicone in September. She takes Ambien most nightsand is due for a refill. Attila has had multiple ER visits for chest pain, which she associates with eating and drinking more coffee. She has been diagnosed with reflux and is considering dietary changes to manage her symptoms. She has a history of a heart catheterization in 2011, which was normal. She is concerned about herblood pressure and is monitoring it closely. She has been advised to increase her amlodipine dosageand is aware of the potential side effect of leg swelling. She is also aware of the possibility of changing her beta-ariella if her current medication is not effective. Attila has a history of diabetic retinopathy and experiences dark spots in her vision, which she associates with low blood sugar levels. She uses reading glasses and is under the care of an eye doctor,Dr. Brasher. She is staying hydrated and has a partial plate for her lower teeth. She experiences occasional itching in her ears and has noticed swelling in her salivary glands. Attila has a history of a broken ankle and wears compression stockings to manage swelling. She is under the care of a linen attendant, Dr. Padgett, and is considering getting new shoes from [employer]. She is also considering a new brace [...] mL as instructed two times a day. (Patienttaking differently: Use 15 mL as instructed two times a day.) glucagon (GVOKE HYPOPEN 1-PACK) 1 mg/0.2 mL auto-injector Inject 1 mg subcutaneously as needed. aspirin, enteric coated (ASPIRIN, ENTERIC COATED) 81 mg EC tablet Take 1 tablet by mouth two times a day. furosemide (LASIX) 20 mg tablet Take 1 tablet by mouth once daily as needed. Insulin [place], Disposable, (BD ULTRA-FINE FADY PEN NEEDLE) 32 [...] Lysine Itching Naprosyn [Naproxen] GI Upset Nausea Pfmgzhj-Kum-Owx Red* Myalgia Tylenol-Codeine #3 * Vomiting Ventolin [...] 126 kg (277 lb 12.5 oz) BMI 40.43kg/m Physical Exam Vitals reviewed. Constitutional: Appearance: Normal [...] - 4.00 k/uL 0.48 (L) 0.81 (L) [place]% % 6.3 7.6 Abs [place] <0.87 k/uL 0.46 0.40 [place]% % 3.6 [...] medical record. Outside specialists seen: ALEN Smith ([facility]) Medical/Family history review Reviewed and [...] 126 kg (277 lb 12.5 oz) BMI 40.43kg/m Vision Screening: Follows with optometry/ophthalmology Assessment/Plan Medicare annual wellness visit, subsequent (Z.) - Counseled on healthy diet and regular exercise - Fall avoidance information provided - Personalized prevention plan provided ASSESSMENT AND PLAN # Medicare annual wellness visit, subsequent (Z00.) - Completed Medicare annual wellness visit. - [...] monitor progress. Octavio Reza MD Recording using [employer] software for draft documentation of the visit was discussed with the patient/authorized patient access representative; all questions welcomed and answered. Patient/authorized patient access representative agreed to proceed documented in this [facility] Instructions* Patient Instructions* Octavio Reza MD - 01/15/2025 10:13 AM [...] (cold drinks, caffeine, tomatoes, large meals); try btto-zuy-nipszyg Tums, Rolaids, or Pepcid AC for occasional heartburn. If reflux symptoms persist, call our office. - Practice stress-relief breathing: inhale to a count of 4, exhale to a count of 8 (or use any comfortable 1:2 ievzuw-df-fcogaf ratio) to help lower your blood pressure. [...] review all the medicines you take, even dhuu-nly-vdnzdpx medicines. As you get older, the way medicines work in your body can change. Some medicines, or combinations of medicines, can make you sleepy or dizzy andcan cause you to fall. 3. Have your [...] have certain medical conditions. documented in this encounter[facility] Radiology Diagnostic study note [facility] Imaging Services [address] [place] [address] Chest PA and Lateral MR#: [id number] Acct: [id number] Name: ATTILA KIDD Rep #: [id number] : 1945 F 79 From: Jerrell Stanford MD PCP: Dr. Octavio Reza MD Status: RE G ER Study:Chest PA and Lateral Date of Exam: 01/04/25 Exam# [id number] Ordering Dr: Amber Rose EXAM: XR Chest, 2 Views CLINICAL INDICATION: CHEST PAIN TECHNIQUE: Frontal and lateral views of the chest. COMPARISON: No relevant prior studies available. FINDINGS: LUNGS AND PLEURAL SPACES: Unremarkable. No consolidation. No pneumothorax. HEART: Unremarkable. No cardiomegaly. MEDIASTINUM: Unremarkable. Normal mediastinal contour. BONES/JOINTS: Unremarkable. No acute fracture. RAD/Chest PA and Lateral IMPRESSION: No acute cardiopulmonary process. Reading Location: [id number] CC: Dr. Octavio Reza MD; ALEN Diamond ~ Physician Assistant Surgery: Signed [facility]06-06-2025 Telephone encounter Note* Telephone Encounter - Norma Devlin RN - 12/21/2024 9:59 AM EDT Call placed to Ashok (on speaker phone). Elijah reports that he did end up taking Pt to [facility] ED on 12/19/2024. He reports that they checked a urine to make sure she didn't have an infection, and it was clear. They did not run any other blood work; they just reviewed her lab results from 11/2024. Pulled [facility] ED records: -Discharge diagnosis was 'Anxiety' - [...] voice understanding. Reassurance provided that as long asPt's glucose is averaging ~150, Renetta Jessehima is comfortable with that, given her age. They voice understanding. Instructed to call if they have any other questions and/or concerns. ED visit note scanned into chart. Norma Devlin RN December 21, 2024 10:07 AM [facility]06-06-[facility] Miscellaneous Notes* Telephone Encounter - Norma Devlin RN - 12/21/2024 9:59 AM EDT Call placed to Ashok (on speaker phone). Elijah reports that he did end up taking Pt to [facility] ED on 12/19/2024. He reports that they checked a urine to make sure she didn't have an infection, and it was clear. They did not run any other blood work; they just reviewed her lab results from 11/2024. Pulled [facility] ED records: -Discharge diagnosis was 'Anxiety' - [...] voice understanding. Reassurance provided that as long asPt's glucose is averaging ~150, Renetta Mcgee is comfortable with that, given her age. They voice understanding. Instructed to call if they have any other questions and/or concerns. ED visit note scanned into chart. Norma Devlin RN December 21, 2024 10:07 AM * Telephone Encounter - Renetta Mcgee APRN.CNP - 12/20/2024 6:54 AM EDT Sugars between 176 and 232 do not require a visit to the hospital. Patient was counseled multiple times on when to check BG, how to use their insulin. She is 79, sugars between 100 - 200 with average of 150 are her goal. Would they like to see the DM EDUCATOR again? * Telephone Encounter - Norma Devlin RN - 12/19/2024 3:57 PM EDT Call attempt back to Pt's , Elijah. Voicemail full, unable to leave message. Will route to [facility] nurse pool in the case that Pt and/or spouse return call. *Pt does have a h/o UTI so that might be something that needs ruled out. Current insulin orders perRenetta Mcgee CNP only advise insulin be taken PRE-MEAL. They have been educated previously on not checking blood sugars too much or between meals.* Norma Devlin RN December 19, 2024 3:58 PM * Telephone Encounter - Trudy Wang MA - 12/19/2024 3:15 PM EDT Received a call from patients with patient [...] the ED? Please contact patient/ back at [phone]. documented in this encounterOhiohealth [facility]heastern [facility] Center06-05-2025 Telephone encounter Note * Telephone Encounter - Renetta Mcgee APRN.CNP - 12/20/2024 6:54 AM EDT Sugars between 176 and 232 do not require a visit to the hospital. Patient was counseled multiple times on when to check BG, how to use their insulin. She is 79, sugars between 100 - 200 with average of 150 are her goal. Would they like to see the DM EDUCATOR again? [facility]06-04-[facility] Discharge summary [facility] Medical Records Department [address] [place] [address] Emergency Department Summary 12/19/24 MR#: [id number] Acct: [id number] Name: ATTILA KIDD Rep #:[id number] : 1945 79 From: Abdulaziz Stratton MD [...] similar symptoms: Yes Recent Illness/Hospitalization: No PFSH [facility] Medical History THAIS (obstructive sleep apnea) Hyperglycemia [...] amiodarone Allergy Intermediate Swelling Verified 12/19/24 15:49 [place] And Derivatives Allergy Intermediate Hives Verified 12/19/24 [...] 12/19/24 15:49 Airborne (ascorbate sodium)) hydrocodone (From [place]) Allergy Mild dystonia Verified 12/19/24 15:49 lysine [...] AdvReac Severe HALLUCINATI Verified 12/19/24 15:49 ONS Fgqcvhb-IZF-ZhY Reductase AdvReac Severe myalgias Verified 12/19/24 15:49 Inhibitor (Uoedcnk-Sxz-Wed Reductase Inhibitor) amoxicillin (From Augmentin) AdvReac Other [...] are nontender without edema or cords. Normal technologies division chair strength. Normal dorsi plantarflexion. Back nontender. Neurologically [...] to inspection, nondistended, normoactive bowel sounds, non-tender, non- distended and no masses Palpation: soft; Negative for [...] scale when you get home. Print Language: [place] Disposition Disposition: Home, Self Care What to do if you have Problems For any increased pain, shortness of breath, bleeding, nausea or vomiting, chestpain, or any unexpected problems, contact your Primary Care Provider. Call [facility] ([phone]) or report tothe closest Emergency Room. Call 911 if necessary. 12/19/24 5040 Cosigner Signature (if applicable): CC: Dr. Octavio Reza MD ~ Signed [facility]06-04-2025 Telephone encounter Note* Telephone Encounter - Norma Devlin RN - 12/19/2024 3:57 PM EDT Call attempt back to Pt's , Elijah. Voicemail full, unable to leave message. Will route to [place] triage nurse pool in the case that Pt and/or spouse return call. *Pt does have a h/o UTI so that might be something that needs ruled out. Current insulin orders Felicia Mcgee CNP only advise insulin be taken PRE-MEAL. They have been educated previously on not checking blood sugars too much or between meals.* Norma Devlin RN December 19, 2024 3:58 PM [facility] Telephone encounter Note* Telephone Encounter - Trudy Wang MA - 12/19/2024 3:15 PM EDT Received a call from patients with patient [...] the ED? Please contact patient/ back at [phone]. [facility]06-04-[facility] Discharge summary Author Abdulaziz Strtaton [facility] Note Date/Time December 19, 2024 5:42p [facility] Medical Records Department [address] [place] [address] Emergency Department Summary 12/19/24 MR#: [id number] Acct: [id number] Name: ATTILA KIDD Rep #:[id number] : 1945 79 From: Abdulaziz Stratton MD [...] 100 unit/mL 6 unit subcut TIDCM dm /01/0602/06/24 History subcutaneous solution omeprazole magnesium 20 mg [...] amiodarone Allergy Intermediate Swelling Verified 12/19/24 15:49 [place] And Derivatives Allergy Intermediate Hives Verified 12/19/24 [...] 12/19/24 15:49 Airborne (ascorbate sodium)) hydrocodone (From [place]) Allergy Mild dystonia Verified 12/19/24 15:49 lysine [...] AdvReac Severe HALLUCINATI Verified 12/19/24 15:49 ONS Qrrxjfd-TRQ-QhZ Reductase AdvReac Severe myalgias Verified 12/19/24 15:49 Inhibitor (Qshsjks-Cgf-Nuq Reductase Inhibitor) amoxicillin (From Augmentin) AdvReac Other [...] are nontender without edema or cords. Normal technologies division chair strength. Normal dorsi plantarflexion. Back nontender. Neurologically [...] scale when you get home. Print Language: [place] Disposition Disposition: Home, Self Care What to do if you have Problems For any increased pain, shortness of breath, bleeding, nausea or vomiting, chestpain, or any unexpected problems, contact your Primary Care Provider. Call [facility] ([phone]) or report to the closest Emergency Room. Call 911 if necessary. 12/19/24 1742 <Electronically signed by Abdulaziz Stratton MD> Cosigner Signature (if applicable): CC: Dr. Octavio Reza MD ~ Signed [facility] Work Phone: 1(146) 132-824206-03-2025 History of Present illness Narrative* Charis Lucas, [facility] - 12/18/2024 9:00 AM EDT [...] Lysine Itching Naprosyn [Naproxen] GI Upset Nausea Uisjveu-Tiv-Lyl Red* Myalgia Tylenol-Codeine #3 * Vomiting Ventolin [...] Reported on 05/23/2024) 6 Each 4 Insulin Joliet, Disposable, (BD ULTRA-FINE FADY PEN NEEDLE) 32 [...] Rx coverage: Payor: T MEDICARE / Plan: [facility] MEDICARE PPO / Product Type: PPO / [...] 02/06/25 Next PharmD visit: 02/25/25 Charis Lucas, ArmandoD, BCACP Primary Care Clinical Contract Clerk documented in this encounterOhiohealth Southeastern Medical Center06-03-2025 [facility]-30[facility] Telephone encounter Note* Telephone Encounter - Pattie [...] needed at this time. Pattie Giles RN [facility]05-30-2025 Miscellaneous Notes* Telephone Encounter - [...] time. Pattie Giles RN documented in this encounterOhiohealth Southeastern Medical Center05-28-2025 Telephone encounter Note * Telephone [...] Brush LPN December 12, 2024 2:25 PM [facility]-28[facility] Miscellaneous Notes* Telephone Encounter - [...] 12, 2024 2:25 PM documented in this encounterOhiohealth Southeastern Medical Center05-28-2025 Telephone encounter Note * Telephone Encounter - Davon Wolfe APRN.CNP - 12/12/2024 12:45 PM EDT Noted and agree. [facility] Miscellaneous Notes* Telephone Encounter - [...] back. Pt verbalizes understanding. documented in this encounterOhiohealth Southeastern Medical Center05-28-2025 Telephone encounter Note * Telephone [...] us a call back. Pt verbalizes understanding. [facility]05-[facility] Discharge summary [facility] Medical Records Department [address] [place] [address] Emergency Department Summary 11/29/24 MR#: [id number] Acct: [id number] Name: ATTILA KIDD Rep #:[id number] : 1945 79 From: Serg Solis MD PCP: Dr. Octavio Reza MD Status:RE ER Location: ED HPI History of Present [...] 200s, and even as high as in frl518's. She presents with concern of her elevated blood sugar and she states that she can eat when she felt her blood sugar was dropping. No recent illness or cough. [facility] Medical History THAIS (obstructive sleep apnea) [...] amiodarone Allergy Intermediate Swelling Verified 11/29/24 21:13 [place] And Derivatives Allergy Intermediate Hives Verified 11/29/24 [...] 11/29/24 21:13 Airborne (ascorbate sodium)) hydrocodone (From [place]) Allergy Mild dystonia Verified 11/29/24 21:13 lysine [...] AdvReac Severe HALLUCINATI Verified 11/29/24 21:13 ONS Eftuuje-ICL-WbT Reductase AdvReac Severe myalgias Verified 11/29/24 21:13 Inhibitor (Vctfomy-Igs-Qgg Reductase Inhibitor) amoxicillin (From Augmentin) AdvReac Other [...] with diabetes versus uncontrolled blood sugar/blood glucose. Bgqgx-sk-gden glucosewill be obtained. Blood work will be [...] at home. She will follow-up with her traffic personnel supervisor tomorrow.Where of care glucose after 1L is 265. Once again, as she has not experiencing nausea or vomiting, I feel she can be discharged to take her 22 units of Lantus and follow-up with her traffic personnel supervisor tomorrow. Patient motivated for discharge. is also [...] % (Auto) 64.8 Lymph % (Auto) 20.6 [place] % (Auto) 7.2 Eos % (Auto) 6.6 [...] Clarity Clear Urine pH 6.0 Ur Specific Wilson 1.015 Urine Protein 15 H Urine Glucose [...] Triage Chief Complaint: Hyperglycemia ED Provider: Serg Soils Dx/Rx/DC Orders Clinical Impression: Hyperglycemia, Essential hypertension, [...] - Activity Restrictions/Additional Instructions: Follow-up with your traffic personnel supervisor tomorrow. Call them with a log of your blood sugars as you havebeen. Keep a log of your blood sugars. Return with fever, chills, nausea, vomiting, abdominal pain,new or worsening symptoms. Print Language: [place] Disposition Disposition: Home, Self Care What to do if you have Problems For any increased pain, shortness of breath, bleeding, nausea or vomiting, chestpain, or any unexpected problems, contact your Primary Care Provider. Call [facility] ([phone]) or report tothe closest Emergency Room. Call 911 if necessary. 11/29/24 2331 Cosigner Signature (if applicable): CC: Dr. Octavio Reza MD ~ Signed [facility]05-15-2025 Discharge summary Author Serg Solis [facility] Note Date/Time November 29, 2024 11:31 pm [facility] Medical Records Department [address] [place] [address] Emergency Department Summary 11/29/24 MR#: [id number] Acct: [id number] Name: ATTILA KIDD Rep #:[id number] : 1945 79 From: Serg Solis MD [...] was dropping. No recent illness or cough. [facility] Medical History THAIS (obstructive sleep apnea) [...] amiodarone Allergy Intermediate Swelling Verified 11/29/24 21:13 [place] And Derivatives Allergy Intermediate Hives Verified 11/29/24 [...] 11/29/24 21:13 Airborne (ascorbate sodium)) hydrocodone (From [place]) Allergy Mild dystonia Verified 11/29/24 21:13 lysine [...] AdvReac Severe HALLUCINATI Verified 11/29/24 21:13 ONS Cxciosd-FYX-GaJ Reductase AdvReac Severe myalgias Verified 11/29/24 21:13 Inhibitor (Bipmkwo-Cqy-Axn Reductase Inhibitor) amoxicillin (From Augmentin) AdvReac Other [...] with diabetes versus uncontrolled blood sugar/blood glucose. Htcxp-vt-eavv glucose will be obtained. Blood work will [...] at home. She will follow-up with her traffic personnel supervisor tomorrow. Where of care glucose after 1L is 265. Once again, as she has not experiencing nausea or vomiting, I feel she can be discharged to take her 22 units of Lantus and follow-up with her traffic personnel supervisor tomorrow. Patient motivated for discharge. is also [...] % (Auto) 64.8 Lymph % (Auto) 20.6 [place] % (Auto) 7.2 Eos % (Auto) 6.6 [...] Clarity Clear Urine pH 6.0 Ur Specific Wilson 1.015 Urine Protein 15 H Urine Glucose [...] - Activity Restrictions/Additional Instructions: Follow-up with your traffic personnel supervisor tomorrow. Call them with a log of your blood sugars as you have been. Keep a log of your blood sugars. Return with fever, chills, nausea, vomiting, abdominal pain, new or worsening symptoms. Print Language: [place] Disposition Disposition: Home, Self Care What to do if you have Problems For any increased pain, shortness of breath, bleeding, nausea or vomiting, chestpain, or any unexpected problems, contact your Primary Care Provider. Call [facility] ([phone]) or report to the closest Emergency Room. Call 911 if necessary. 11/29/24 3041 <Electronically signed by Serg Solis MD> Cosigner Signature (if applicable): CC: Dr. Octavio Reza MD ~ Signed [facility] Work Phone: 1(351) 918-656805-01-2025 Evaluation note* Diagnosis Onset Date Resolution Status Admit Date Abnormal stress test acute November 15, 2024 8:05am THAIS (obstructive sleep apnea) acute November 15, 2024 8:05am Essential hypertension chronic Ma y 2024 8:05am Paroxysmal SVT (supraventric ular tachycardia) chronic November 15, 2024 8: 05am [facility] Work Phone: 1(848) 453-405905-01-2025 Evaluation note* Diagnosis Onset Date Resolution Status Admit Date Abnormal stress test acute November 15, 2024 8:05am THAIS (obstructive sleep apnea) acute November 15, 2024 8:05am Essential hypertension chronic Ma y 1st, 2025 8:05am Paroxysmal SVT (supraventric ular tachycardia) chronic November 15, 2024 8: 05am Abnormal stress test acute January 14, 2025 9:37am THAIS (obstructive sleep apnea) acute January 14, 2025 9:37am Essential hypertension chronic Ju ne 2024 9:37am Paroxysmal SVT (supraventric ular tachycardia) chronic January 14, 2025 9:37am [facility] Work Phone: [phone] [facility]04-23-2025 History of Present illness Narrative* Eliza Gilliland [...] 07, 2024 10:29 AM documented in this encounterOhiohealth Southeastern Medical Center04-22-2025 History of Present illness Narrative* Charis Lucas RPh - 11/06/2024 9:00 AM EDT Primary Care [...] Lysine Itching Naprosyn [Naproxen] GI Upset Nausea Offimcx-Rfn-Oay Red* Myalgia Tylenol-Codeine #3 * Vomiting Ventolin [...] Reported on 05/23/2024) 6 Each 4 Insulin Jol[place], Disposable, (BD ULTRA-FINE FADY PEN NEEDLE) 32 [...] Adherence: denies missed doses. Rx coverage: Payor: [facility] MEDICARE / Plan: [facility] PPO / Product Type: PPO / [...] 02/06/25 Next PharmD visit: 12/18/24 Charis Lucas, PharmD, BCACP Primary Care Clinical Contract Clerk documented in this encounterOhiohealth Southeastern Medical Center04-22-2025 [facility]04-16-2025 [facility]04-16-2025 History of Present illness Narrative* Renetta Mcgee, SANDSTONE SPLITTER.LOCKER ATTENDANT - 10/31/2024 3:18 PM EDT OFFICE VISIT [...] are doing very well Working with ENDO FINISH PAINTER Sugars have run mostly between 105-177 with [...] has not had advanced carb counting with consulting nurse She wants to eat different foods, but [...] by mouth once daily as needed. Insulin Joliet, Disposable, (BD ULTRA-FINE FADY PEN NEEDLE) 32 [...] Lysine Itching Naprosyn [Naproxen] GI Upset Nausea Olcqule-Ksh-Ahn Red* Myalgia Tylenol-Codeine #3 * Vomiting Ventolin [...] (HCC) (primary encounter diagnosis) Discussed seeing ENDO FINISH PAINTER again for advanced carb counting, DM meal [...] office as needed FOLLOW UP WITH ENDO FINISH PAINTER as discussed Recommended diet: Low carbohydrate and [...] (MNT) Renetta Mcgee CNP documented in this encounterOhiohealth Southeastern Medical Center04-14-2025 Telephone encounter Note * Telephone Encounter - Tierney Deluca MA - 10/29/2024 8:26 AM EDT Patients phoned and placed us on speaker phone with Rena. Brunoe called as requested by Norma last [...] are scheduled this week. Tierney Deluca MA [facility]04-14-2025 Miscellaneous Notes* Telephone Encounter - Tierney Deluca MA - 10/29/2024 8:26 AM EDT Patients phoned and placed us on speaker phone with Attilamikayla Nava called as requested by Norma last [...] week. Tierney Deluca MA documented in this encounterOhiohealth Southeastern Medical Center04-09-2025 Radiology Diagnostic study note [facility] Imaging Services [address] [place] [address] Venous Duplex Imag/Limited/Uni MR#: [id number] Acct: [id number] Name: ATTILA KIDD Rep #: [id number] : 1945 F 79 From: Marisela Herman MD PCP: Dr. Octavio Reza MD Status: VA E ER Study:Venous Duplex Imag/Limited/Uni Date of Exam: 10/24/24 Exam# [id number] Ordering Dr: Benjamín Stanford DO PROCEDURE: VENOUS [...] in the left lower extremity. Reading Location: [facility] CC: Dr. Octavio Reza MD; Dr. Benjamín Stanford DO ~ Physician Assistant Surgery: Signed [facility]04-05-2025 Telephone encounter Note* Telephone Encounter - Octavio Reza MD - 10/20/2024 5:56 AM EDT Noted Follow up as needed for labile glucose [place] [address]-05-2025 Miscellaneous Notes* Telephone Encounter - Octavio Reza MD - 10/20/2024 5:56 AM EDT Noted Follow up as needed for labile glucose * Telephone Encounter - Norma Devlin RN - 10/19/2024 4:34 PM EDT Call returned to Pt and spouse, Elijah. Confirmed Pt name & . Clarification received re: [facility] ED visit today after the 2 conservation science officer calls. Pt went to the ED for [...] the ED. Pt and spouse voice understanding. [facility] ED documents in scanned documents. Dr. Reza [...] possible. Cayla Johnston MA documented in this encounterOhiohealth Southeastern Medical Center04-04-2025 Telephone encounter Note * Telephone Encounter - Norma Devlin RN - 10/19/2024 4:34 PM EDT Call returned to Pt and spouse, Elijah. Confirmed Pt name & . Clarification received re: [facility] ED visit today after the 2 conservation science officer calls. Pt went to the ED for [...] the ED. Pt and spouse voice understanding. [facility] ED documents in scanned documents. Dr. Reza and Renetta Mcgee CNP notified. Norma Devlin RN October 19, 2024 4:54 PM [facility]04-04-20[facility] Telephone encounter Note* Telephone Encounter - Cayla Johnston MA - 10/19/2024 3:01 PM EDT Pt is calling with questions about her blood sugars and her medication. Sugar is running high and she is quite concerned. Would like to speak with a nurse in Endocrinology. Today if possible. Cayla Johnston MA [facility]04-04-2025 Radiology Diagnostic study note [facility] Imaging Services [address] [place] [address] [id number] HIP, UNI W/ Pelvis 2-3 Views MR#: [id number] Acct: [id number] Name: ATTILA KIDD Rep #: [id number] : 1945 F 79 From: Sunday Terrell MD PCP: Dr. Octavio Reza MD Status: RE G ER Study:HIP, UNI W/ Pelvis 2-3 Views Date of Ex am: 10/19/24 Exam# [id number] Ordering Dr: Jodi Sanches DO PROCEDURE: HIP, UNI W/ PELVIS 2-3 VIEWS 10/19/2024 REASON FOR EXAM: Left hip pain. TECHNIQUE: Three views of the left hip COMPARISON: None FINDINGS: Bones: Unremarkable Joints: Mild degree of joint space narrowing. Narrowing of the symphysis pubis. Soft tissues: Calcified phleboliths. Other: RAD/HIP, UNI W/ Pelvis 2-3 Views IMPRESSION: DEGENERATIVE OSTEOARTHROSIS. NO ACUTE FINDINGS. Reading Location: [place] [address] CC: Dr. Holland Sanches DO; Dr. Octavio Reza MD ~ Physician Assistant Surgery: Signed [facility]04-04-2025 Telephone encounter Note* Telephone Encounter - [...] is out of joint. Protocols used: Leg Rbyh-KIYRY-UM [facility]04-04-2025 Miscellaneous Notes* Telephone Encounter - Darlene Mena [...] is out of joint. Protocols used: Leg Lekb-ZTEMI-RY * Telephone Encounter - Asmita Tapia RN [...] no Protocols used: Diabetes - High Blood Orlpd-HPJSM-VN documented in this encounterOhiohealth Southeastern Medical Center04-04-2025 Telephone encounter Note * Telephone [...] no Protocols used: Diabetes - High Blood Tlkyp-KYLTT-UM [facility]03-31-2025 Instructions* Patient Instructions* Octavio Reza [...] these tests in mid-December. documented in this encounterOhiohealth Southeastern Medical Center03-31-2025 [facility]03-31-2025 History of Present illness Narrative* Octavio Reza MD - 10/15/2024 2:12 PM EDT This note was created using Results [employer]. Subjective Attila Kidd is a 79 year [...] then wash off in the morning Insulin Joliet, Disposable, (BD ULTRA-FINE FADY PEN NEEDLE) 32 [...] Lymph 1.00 - 4.00 k/uL 0.81 (L) [place]% % 7.6 Abs [place] <0.87 k/uL 0.40 Eosin% % 4.9 Abs [...] (F51.01) - [facility] October [facility]. [...] given. Octavio Reza MD documented in this encounterOhiohealth Southeastern Medical Center03-20-2025 Telephone encounter Note * Telephone Encounter - Ritika Santos LPN - 10/04/2024 4:08 PM EDT Patient notified of providers message and verbalized understanding. [facility]03-20-20[facility] Miscellaneous Notes* Telephone Encounter - [...] her bowels? Please advise documented in this encounterOhiohealth Southeastern Medical Center03-20-2025 Telephone encounter Note * Telephone Encounter - Lydia Grande APRN.CNS - 10/04/2024 3:46 PM EDT Take a Dulcolax and another dose of MiraLAX this evening. Try walking this evening as able. Recommend she drink plenty of fluids. If no results tonight then would repeat the medications in the morning. Call and let us know how she is doing tomorrow. [facility]03-20-[facility] Telephone encounter Note* Telephone Encounter [...] to help with her bowels? Please advise [facility]03-17-2025 Telephone encounter Note* Telephone Encounter - Bianca Waldrop MA - 10/01/2024 2:47 PM EDT Patient informed and verbalized understanding. Will try the warm compresses. Bianca Waldrop MA [facility]03-17-2025 Miscellaneous Notes* Telephone Encounter - [...] back on neck and put on some [place] Ze[place]ander Dream, Arthritis pain relief cream at 11 [...] about this. Please advise documented in this encounterOhiohealth Southeastern Medical Center03-17-2025 [facility]03-13-2025 Telephone encounter Note* Telephone Encounter - Octavio [...] or forehead to see if that helps? [facility]03-13-20[facility] Telephone encounter Note* Telephone Encounter - Cesar Brush LPN - 09/27/2024 2:29 PM EDT Patient calling she was having pain back on neck and put on some [place] Ze[place]ander Dream, Arthritis pain relief cream at 11 [...] sent to PCP about this. Please advise [facility]03-12-2025 Instructions* Patient Instructions* Octavio Reza [...] with portion control as advised by your traffic personnel supervisor. - Continue your exercise routine, including riding your stationary bike. - Drink plenty of water daily. - Follow up with your traffic personnel supervisor and pharmacist as scheduled. - Next appointment on the of this month for routine follow-up and lab tests. documented in this encounterOhiohealth Southeastern Medical Center03-12-2025 History of Present illness Narrative* Octavio Reza MD - 09/26/2024 10:00 AM EDT Images from the original note were not included. This note was created using Results [employer]. Subjective Attila Kidd is a 79 year old female. No chief complaint on file. SUBJECTIVE: Attila godinez is a 79 year old year old [...] She is under the care of an traffic personnel supervisor and a PharmD, and has been following [...] (Patient not taking: Reported on 05/23/2024) Insulin Joliet, Disposable, (BD ULTRA-FINE FADY PEN NEEDLE) 32 [...] on October 15 to assess progress. Octavio Rzea MD documented in this encounterOhiohealth Southeastern Medical Center03-12-2025 [facility]03-11-2025 Telephone encounter Note* Telephone Encounter - Christine Mcelroy MA - 09/25/2024 2:44 PM EDT Denial states that [employer] brand not covered but onetouch ultra is. Pharmacy dispense report shows been getting onetouch ultra monthly. Called [facility] and ran for onetouch ultra and covered went through as paid claim. Discarded denial. Christine Mcelroy MA [facility]03-11-2025 Miscellaneous Notes* Telephone Encounter - Christine Mcelroy MA - 09/25/2024 2:44 PM EDT Denial states that k[employer]ger brand not covered but onetouch ultra is. Pharmacy dispense report shows been getting onetouch ultra monthly. Called [facility] and ran for onetouch ultra and covered went through as paid claim. Discarded denial. Christine Mcelroy MA * Telephone Encounter - Vibha [...] till deductible met. * Telephone Encounter - Christine Mcelroy MA - 08/20/2024 4:24 PM EST Pharmacy dispense shows 200 test strips dispensed in July. Called [facility] and they advised PA was valid till 09/25/2024. Called spouse who advised rx for 200 strips was $230. Called [facility] chavez into this if going through with insurance or if spouse paid out pocket. [facility]idel advised is covered but until deductible met has to pay for strips. Spouse was called again and aware Leave TE so we can re-complete next month Christine Mcelroy MA * Telephone Encounter - Rakel [...] pcp to sign. * Telephone Encounter - Cammy Moreno RN - 08/08/2024 11:47 AM EST Prior Authorization Documentation Prior authorization requested for the following medication: Medication: Blood sugar test strips - test 8 times a day- medically necessary for labile blood sugars (highs and lows) Provider: [employer] Name: [facility] Medicare Insurance Company Phone number: [phone] Patient ID number: [id number] [facility]acy [facility] Telephone number: [phone] documented in this encounterOhiohealth [facility] Center03-09-2025 Telephone encounter Note * Telephone [...] should be the next steps? Conferenced to [facility] pig machine operator helper, Clau, to speak with provider orthopedic surgeon for Renetta Mcgee CNP. GO TO THE EMERGENCY ROOM OR CALL 911 IF: * You develop any new symptoms * Your condition worsens * You are concerned or anxious about your condition for any other reason. If you have any questions, you can call Nurse environmental assistant back. [facility]03-09-2025 Miscellaneous Notes* Telephone Encounter - [...] should be the next steps? Conferenced to [facility] pig machine operator helper, Clau, to speak with provider orthopedic surgeon for Renetta Mcgee CNP. GO TO THE EMERGENCY ROOM OR CALL 911 IF: * You develop any new symptoms * Your condition worsens * You are concerned or anxious about your condition for any other reason. If you have any questions, you can call Nurse environmental assistant back. documented in this encounterOhiohealth Southeastern Medical Center03-07-2025 Telephone encounter Note * Telephone Encounter - Vibha Peña LPN - 09/21/2024 1:44 PM EST Denial rec'd for kroger test strips. Approval rec'd for one touch ultra strips [facility]03-07-2025 Telephone encounter Note* Telephone Encounter - Cammy Moreno RN - 09/21/2024 1:22 PM EST Pt reports she went to [facility] ER last night with diarrhea. Reports she [...] call back with any questions or concerns. [facility]03-07-2025 Miscellaneous Notes* Telephone Encounter - Cammy Moreno RN - 09/21/2024 1:22 PM EST Pt reports she went to [facility] ER last night with diarrhea. Reports she [...] any questions or concerns. documented in this encounterOhiohealth Southeastern Medical Center03-07-2025 Discharge summary Author Nik Nunez [facility] Note Date/Time September 21, 2024 7:09 am [facility] Medical Records Department [address] [place] [address] Emergency Department Summary 09/21/24 MR#: [id number] Acct: [id number] Name: ATTILA KIDD Rep #:[id number] : 1945 79 From: Nik Nunez MD [...] denies any abdominal pain. She is fatigued. [facility] Medical History THAIS (obstructive sleep apnea) [...] amiodarone Allergy Intermediate Swelling Verified 09/21/24 06:21 Hanston And Derivatives Allergy Intermediate Hives Verified 09/21/24 [...] 09/21/24 06:21 Airborne (ascorbate sodium)) hydrocodone (From [place]) Allergy Mild dystonia Verified 09/21/24 06:21 lysine [...] 06:21 hydrochlorothiazide Allergy Other Verified 09/21/24 06:21 Lopmxrg-DFK-MyL Reductase AdvReac Severe myalgias Verified 09/21/24 06:21 Inhibitor (Bvspuan-Vpk-Vqs Reductase Inhibitor) amoxicillin (From Augmentin) AdvReac Other [...] 1-2 Days if not improving Print Language: [place] Disposition Disposition: Home, Self Care What to do if you have Problems For any increased pain, shortness of breath, bleeding, nausea or vomiting, chestpain, or any unexpected problems, contact your Primary Care Provider. Call [facility] ([phone]) or report to the closest Emergency Room. Call 911 if necessary. 09/21/24708 <Electronically signed by Nik Nunez MD> Cosigner Signature (if applicable): CC: Dr. Octavio Reza MD ~ Signed [facility] Work Phone: 1(475) 693-232703-07-2025 Discharge summary [facility] Medical Records Department [address] [place] [address] Emergency Department Summary 09/21/24 MR#: [id number] Acct: [id number] Name: ROBERT KIDDGm Godinez Rep #:[id number] : 1945 79 From: Nik Nunze MD PCP: Dr. Octavio Reza MD Status:RE G ER Location: ED HPI History of Present Illness Chief Complaint: Hyperglycemia Informant: patient and spouse/S.O. Narrative Narrative: 79-year-old female presenting for hyperglycemia. She was seen here in the ER and discharged 5 or 6 hours ago, she was having vomiting and diarrhea and abdominal discomfort. Her blood sugar was in [id number] and 150s, and she was discharged with [...] denies any abdominal pain. She is fatigued. [facility] Medical History THAIS (obstructive sleep apnea) [...] amiodarone Allergy Intermediate Swelling Verified 09/21/24 06:21 Hanston And Derivatives Allergy Intermediate Hives Verified 09/21/24 [...] 09/21/24 06:21 Airborne (ascorbate sodium)) hydrocodone (From [place]) Allergy Mild dystonia Verified 09/21/24 06:21 lysine [...] 06:21 hydrochlorothiazide Allergy Other Verified 09/21/24 06:21 Bigpiix-YLA-NoV Reductase AdvReac Severe myalgias Verified 09/21/24 06:21 Inhibitor (Bvlbjjr-Htf-Tly Reductase Inhibitor) amoxicillin (From Augmentin) AdvReac Other [...] 1-2 Days if not improving Print Language: [place] Disposition Disposition: Home, Self Care What to do if you have Problems For any increased pain, shortness of breath, bleeding, nausea or vomiting, chestpain, or any unexpected problems, contact your Primary Care Provider. Call [facility] ([phone]) or report tothe closest Emergency Room. Call 911 if necessary. 09/21/24 0709 Cosigner Signature (if applicable): CC: Dr. Octavio Reza MD ~ Signed [facility]03-07-2025 Telephone encounter Note* Telephone Encounter - Tere Mcgrath, DEONNA - 09/21/2024 5:42 AM EST Reason for Call: Blood sugar 414 at 0530 today when she woke up, and 426 at time of call. Outcome: Call Die Stamping Press Operator now. Established with [facility]ocr[facility] Renetta Mcgee CNP. Patient and decline Endocrinology orthopedic surgeon provider page and prefer to go to [facility] ED now. Reason for Disposition Blood glucose > 400 mg/dL (22.2 mmol/L) Answer Assessment - Initial Assessment Questions 1. BLOOD GLUCOSE: Blood sugar 414 at 0530 today when she woke up, and 426 at time of call States blood sugar was fine at yesterdays [facility] ED diarrhea visit. States she ate a [...] weakness. Protocols used: Diabetes - High Blood Njfbt-HPLEP-CC [facility]03-07-2025 Miscellaneous Notes* Telephone Encounter - Tere Mcgrath RN - 09/21/2024 5:42 AM EST Reason for Call: Blood sugar 414 at 0530 today when she woke up, and 426 at time of call. Outcome: Call Die Stamping Press Operator now. Established with [facility] Endocrinology Renetta Mcgee CNP. Patient and decline Endocrinology orthopedic surgeon provider page and prefer to go to [facility] ED now. Reason for Disposition Blood glucose > 400 mg/dL (22.2 mmol/L) Answer Assessment - Initial Assessment Questions 1. BLOOD GLUCOSE: Blood sugar 414 at 0530 today when she woke up, and 426 at time of call States blood sugar was fine at yesterdays [facility] ED diarrhea visit. States she ate a [...] she was Type 1 all my life.. [facility] List - Type 1 DM. 6. INSULIN: [...] weakness. Protocols used: Diabetes - High Blood Mfwxz-PCMKA-JV documented in this encounterOhiohealth Southeastern Medical Center03-06-2025 Discharge summary [facility] Medical Records Department [address] [place] [address] Emergency Department Summary 09/20/24 MR#: [id number] Acct: [id number] Name: ATTILA KIDD Rep #:[id number] : 1945 79 From: Lars Dahl DO [...] valuation management. Patient denies any sick contacts. [facility] Medical History THAIS (obstructive sleep apnea) [...] amiodarone Allergy Intermediate Swelling Verified 09/20/24 17:49 Hanston And Derivatives Allergy Intermediate Hives Verified 09/20/24 [...] 09/20/24 17:49 Airborne (ascorbate sodium)) hydrocodone (From [place]) Allergy Mild dystonia Verified 09/20/24 17:49 lysine [...] 17:49 hydrochlorothiazide Allergy Other Verified 09/20/24 17:49 Ffozcnr-EOC-JxE Reductase AdvReac Severe myalgias Verified 09/20/24 17:49 Inhibitor (Uzxoapz-Jls-Ymf Reductase Inhibitor) amoxicillin (From Augmentin) AdvReac Other [...] Patient follow commands though she was at [facility] year [id number] Skin: Warm, dry, intact no rashes or [...] 90.2 H Lymph % (Auto) 3.7 L [place] % (Auto) 4.5 Eos % (Auto) 1.2 [...] Sl. Cloudy Urine pH 6.0 Ur Specific Wilson 1.025 Urine Protein 30 H Urine Glucose [...] use of iterative reconstruction technique). [facility] Triage Chief Complaint: [...] with your primary care physician Print Language: [place] Disposition Disposition: Home, Self Care What to do if you have Problems For any increased pain, shortness of breath, bleeding, nausea or vomiting, chestpain, or any unexpected problems, contact your Primary Care Provider. Call [facility] ([phone]) or report tothe closest Emergency Room. Call 911 if necessary. 09/20/24 4336 Cosigner Signature (if applicable): CC: Dr. Octavio Reza MD ~ Signed [facility]03-06-2025 Radiology Diagnostic study note [facility] Imaging Services [address] [place] [address] Abdomen/Pelvis W IV Cont ONLY MR#: [id number] Acct: [id number] Name: ATTILA KIDD Rep #: [id number] : 1945 F 79 From: Karen hewitt [employer] PCP: Dr. Octavio Reza MD Status: RE G ER Study:Abdomen/Pelvis W IV Cont ONLY Date of E xam: 09/20/24 Exam# [id number] Ordering Dr: Yeimi Dahl DO PROCEDURE: ABDOMEN/PELVIS [...] use of iterative reconstruction technique). Reading [facility] CC: Dr. Octavio Reza MD; Dr. Lars Dahl, DO ~ Physician Assistant Surgery: Signed [facility]03-06-2025 Telephone encounter Note* Telephone Encounter - Vibha Peña LPN - 09/20/2024 3:55 PM EST MORE QUESTIONS REC'D TO COMPLETE. THIS WAS DONE AND FAXED BACK. [facility]03-06-[facility] Telephone encounter Note* Telephone Encounter - Vibha Peña LPN - 09/20/2024 2:55 PM EST Was able to complete electronic PA for testing 8 times daily [facility]03-06-2025 Discharge summary Author Lars Dahl [facility] Note Date/Time September 20, 2024 11:1 6pm [facility] Medical Records Department [address] [place] [address] Emergency Department Summary 09/20/24 MR#: [id number] Acct: [id number] Name: ATTILA KIDD Lillian Rep #:[id number] : 1945 79 From: Lars Dahl DO [...] valuation management. Patient denies any sick contacts. [facility] Medical History THAIS (obstructive sleep apnea) [...] amiodarone Allergy Intermediate Swelling Verified 09/20/24 17:49 Hanston And Derivatives Allergy Intermediate Hives Verified 09/20/24 [...] 09/20/24 17:49 Airborne (ascorbate sodium)) hydrocodone (From [place]) Allergy Mild dystonia Verified 09/20/24 17:49 lysine [...] 17:49 hydrochlorothiazide Allergy Other Verified 09/20/24 17:49 Isogodu-VEV-ZeI Reductase AdvReac Severe myalgias Verified 09/20/24 17:49 Inhibitor (Qfbfpyr-Qnk-Wkc Reductase Inhibitor) amoxicillin (From Augmentin) AdvReac Other [...] Patient follow commands though she was at [facility] year [id number] Skin: Warm, dry, intact no rashes or [...] 90.2 H Lymph % (Auto) 3.7 L [place] % (Auto) 4.5 Eos % (Auto) 1.2 [...] Sl. Cloudy Urine pH 6.0 Ur Specific Wilson 1.025 Urine Protein 30 H Urine Glucose [...] use of iterative reconstruction technique). Reading [facility] Discharge Plan Triage Chief Complaint: [...] with your primary care physician Print Language: [place] Disposition Disposition: Home, Self Care What to do if you have Problems For any increased pain, shortness of breath, bleeding, nausea or vomiting, chestpain, or any unexpected problems, contact your Primary Care Provider. Call [facility] ([phone]) or report to the closest Emergency Room. Call 911 if necessary. 09/20/246 <Electronically signed by Lars Dahl DO> Cosigner Signature (if applicable): CC: Dr. Octavio Reza MD ~ Signed [facility] Work Phone: 1(667) 816-265702-27-2025 Telephone encounter Note* Telephone Encounter - Tierney Sun RN - 09/13/2024 2:55 AM EST Spouse calling regarding blood sugar 271 and wants to know what Insulin to give. Conferenced to [facility] Answering Service [[phone] ] to speak with provider orthopedic surgeon for Renetta Mcgee [facility] - Endocrinology. [facility]02-27-2025 Miscellaneous Notes* Telephone Encounter - Tierney Sun RN - 09/13/2024 2:55 AM EST Spouse calling regarding blood sugar 271 and wants to know what Insulin to give. Conferenced to [facility] Answering Service [[phone] ] to speak with provider orthopedic surgeon for Renetta Mcgee [facility] - Endocrinology. documented in this encounterOhiohealth Southeastern Medical Center02-25-2025 Telephone encounter Note * Telephone [...] Charis Lucas PharmD, MELISA Primary Care Clinical Contract Clerk [facility] Work Phone: [phone] 545-742702-25-2025 Miscellaneous Notes* Telephone Encounter - Charis Lucas [...] Charis Lucas PharmD, MELISA Primary Care Clinical Contract Clerk * Telephone Encounter - Darlene Mena RN [...] advise, Darlene Mena RN documented in this encounterOhiohealth Southeastern Medical Center02-24-2025 Telephone encounter Note * Telephone [...] Please review and advise, Darlene Mena RN [facility]02-24-2025 History of Present illness Narrative* Charis Lucas, [facility] - 09/10/2024 9:00 AM EST Primary Care [...] Lysine Itching Naprosyn [Naproxen] GI Upset Nausea Htphvnq-Gki-Qfw Red* Myalgia Tylenol-Codeine #3 * Vomiting Ventolin [...] Reported on 05/23/2024) 6 Each 4 Insulin [place], Disposable, (BD ULTRA-FINE FADY PEN NEEDLE) 32 [...] Charis Lucas, PharmD, BCACP Primary Care Clinical Contract Clerk documented in this encounterOhiohealth Southeastern Medical Center02-24-2025 [facility]02-20-2025 Telephone encounter Note* Telephone Encounter - Parris Eckert RN - 09/06/2024 7:11 PM EST Pt called and is notified of providers results and instructions. Pt voices understanding. Parris Eckert RN [facility]02-20-2025 Miscellaneous Notes* Telephone Encounter - [...] patient. Asmita Tapia RN documented in this encounterOhiohealth Southeastern Medical Center02-20-2025 Telephone encounter Note * Telephone [...] fish, edamame, ground flax seed and walnuts. [facility]02-20-2025 Telephone encounter Note* Telephone Encounter [...] 10/15/24. Please advise patient. Asmita Tapia RN [facility]02-19-2025 Telephone encounter Note* Telephone Encounter - Mel Morin RN - 09/05/2024 2:32 PM EST Patient called back and the below results were given. Mel Morin RN [facility]02-19-2025 Miscellaneous Notes* Telephone Encounter - [...] of August. Please call patient back at [phone]. She does not use MyChart routinely. documented in this encounterOhiohealth Southeastern Medical Center02-19-2025 Telephone encounter Note * Telephone Encounter - Norma Devlin RN - 09/05/2024 2:18 PM EST Call placed to Pt - unable to LM, voicemail box full. If Pt returns call to office, please relay the below notation per Renetta Mcgee CNP to her. Norma Devlin RN September 05, 2024 2:18 PM [facility]02-19-2025 Telephone encounter Note* Telephone Encounter - Renetta Mcgee APRN.CNP - 09/05/2024 7:42 AM EST Please call the patient. Overall her labs are very good. A1C was 7.1 % and well controlled Cholesterol normal, however, LDL slightly elevated BUN very slightly elevated, make sure to drink 150 oz of water daily UNLESS on fluid restrictions Remainder of Labs WNL [facility]02-18-2025 Telephone encounter Note* Telephone Encounter - Trudy Wang MA - 09/04/2024 3:15 PM EST Patient called in asking for lab results that were completed at the beginning of August. Please call patient back at [phone]. She does not use MyChart routinely. [facility]02-07-2025 Telephone encounter Note* Telephone Encounter - Octavio Reza MD - 08/24/2024 8:58 AM EST Reviewed with spouse. Sent pended RX. Discussed that gives logs to Marcela and she works with Charis Day routinely. Discussed doing log for a month. Not sure if will need PA every month or just till deductible met. [facility]02-03-[facility] Telephone encounter Note* Telephone Encounter - Christine Mcelroy MA - 08/20/2024 4:24 PM EST Pharmacy dispense shows 200 test strips dispensed in July. Called [facility] and they advised PA was valid till 09/25/2024. Called spouse who advised rx for 200 strips was $230. Called fidel byrneook into this if going through with insurance or if spouse paid out pocket. Fidel advised is covered but until deductible met has to pay for strips. Spouse was called again and aware Leave TE so we can re-complete next month Christine Mcelroy MA [facility]02-03-2025 Telephone encounter Note* Telephone Encounter - Rakel Agosto LPN - 08/20/2024 8:27 AM EST is calling to check on status of prior auth. would like a call back. Rakel Agosto LPN [facility]01-31-2025 [facility]01-31-2025 History of Present illness Narrative* Phoebe Carrion [...] Blood Pressure Diabetic Eye Exam JUAN C Lassiterjarrettyeimi Active: Yes Patient will walk in to [...] 17, 2024 8:51 AM documented in this encounterOhiohealth Southeastern Medical Center01-28-2025 Telephone encounter Note * Telephone Encounter - Vibha Peña LPN - 08/14/2024 11:00 AM EST Form completed and faxed 08/10/24. [facility]01-23-2025 Telephone encounter Note* Telephone Encounter [...] to two eggs in the AM with [place] toast. Salads for lunch and dinner with [...] abdomen pain, bloating, fever, vomiting Protocols used: Wftjlwhdzmcx-CAOHL-SG [facility]01-23-2025 Miscellaneous Notes* Telephone Encounter - Pattie Gilse RN - 08/09/2024 2:22 PM EST Patient [...] to two eggs in the AM with [place] toast. Salads for lunch and dinner with [...] abdomen pain, bloating, fever, vomiting Protocols used: Lxqjigrcgnbk-VZEZB-LB documented in this encounterOhiohealth Southeastern Medical Center01-22-2025 Telephone encounter Note * Telephone Encounter - Vibha Peña LPN - 08/08/2024 1:07 PM EST Unable to complete electronically. Previously approved from 09/26/23 to 09/25/24. High utilization for rec'd from fidel. To pcp to sign. [facility]01-22-2025 Telephone encounter Note* Telephone Encounter - Cammy Moreno RN - 08/08/2024 11:47 AM EST Prior Authorization Documentation Prior authorization requested for the following medication: Medication: Blood sugar test strips - test 8 times a day- medically necessary for labile blood sugars (highs and lows) Provider: [employer] Name: [employer] Phone number: [phone] Patient ID number: [id number] Pharmacy Name[facility] Telephone number: [phone] [facility]01-15-2025 Telephone encounter Note* Telephone Encounter [...] this time. Closing TE. Pattie Giles RN [facility]01-15-2025 Miscellaneous Notes* Telephone Encounter - [...] TE. Pattie Giles RN documented in this encounterOhiohealth Southeastern Medical Center01-14-2025 History of Present illness Narrative* [...] On speaker phone with patient and patient's spouseHayden States BGs have been pretty good lately, [...] dose of Lantus than prescribed *had 2 rn camp cupcakes to bring up BGs felt readings [...] Lysine Itching Naprosyn [Naproxen] GI Upset Nausea Hzvkrve-Ffw-Hxv Red* Myalgia Tylenol-Codeine #3 * Vomiting Ventolin [...] Reported on 05/23/2024) 6 Each 4 Insulin [place], Disposable, (BD ULTRA-FINE FADY PEN NEEDLE) 32 gauge x / Use one needle for each dose. 1-2 [...] Rx coverage: Payor: T MEDICARE / Plan: [facility] MEDICARE PPO / Product Type: PPO / [...] Charis Lucas, PharmD, BCACP Primary Care Clinical Contract Clerk documented in this encounterOhiohealth Southeastern Medical Center01-14-2025 [facility]01-10-2025 Telephone encounter Note* Telephone Encounter - Pattie [...] by EC. Patient requests call back at [phone] once sent. Pattie Giles RN July 27, 2024 2:28 PM [facility]01-10-2025 Miscellaneous Notes* Telephone Encounter - [...] by EC. Patient requests call back at [phone] once sent. Pattie Giles RN July 27, 2024 2:28 PM documented in this encounterOhiohealth Southeastern Medical Center01-02-2025 Telephone encounter Note * Telephone Encounter - Ritika Santos LPN - 07/19/2024 4:01 PM EST Patient and were given providers instructions and verbalized understanding. [facility]01-02-2025 Miscellaneous Notes* Telephone Encounter - [...] excerpted from protocol: Diabetes - High Blood Gdrjp-HKYHK-FV TREATMENT : HOME CARE - LIQUIDS: * [...] possible. Asmita Tapia RN documented in this encounterOhiohealth Southeastern Medical Center01-02-2025 Telephone encounter Note * Telephone Encounter - Lydia Grande APRN.CNS - 07/19/2024 3:45 PM EST Agree with the home treatment measures noted below and her Insulin Sliding Scale instructions for dinner. She can also walk or other activity to help bring her glucose level down. [facility]01-02-2025 Telephone encounter Note* Telephone Encounter [...] excerpted from protocol: Diabetes - High Blood Ldfil-JQZFW-BS TREATMENT : HOME CARE - LIQUIDS: * [...] well today. If possible. Asmita Tapia, RN [facility]12-30-2024 Telephone encounter Note* Telephone Encounter - Yvette Coehn LPN - 07/16/2024 8:38 AM EST Pt calling for refills. Reviewed meds requested by pt. Epic is showing there are refills at [facility]. Pt believes she is looking at an old bottle. She will check with pharm and call if any problems. Yvette Cohen LPN [facility]12-30-2024 Miscellaneous Notes* Telephone Encounter - Yvette oChen LPN - 07/16/2024 8:38 AM EST Pt calling for refills. Reviewed meds requested by pt. Epic is showing there are refills at [facility]. Pt believes she is looking at an old bottle. She will check with pharm and call if any problems. Yvette Cohen LPN documented in this encounterOhiohealth Southeastern Medical Center12-17-2024 Instructions* Patient Instructions* Lydia Grande APRN.CNS - 07/03/2024 3:12 PM EST Continue with your usual blood pressure medications. Check your blood pressure once daily around noon. If your blood pressure is greater than 150/80 take an additional 1/2 tablet of 50 mg metoprolol tartrate documented in this encounterOhiohealth Southeastern Medical Center12-17-2024 [facility]12-17-2024 History of Present illness Narrative* Lydia Grande, SANDSTONE SPLITTER.COMMUNITY DEVELOPMENT COORDINATOR - 07/03/2024 2:00 PM EST SUBJECTIVE: DTaP,Tdap,Td [...] Remission (Hcc) Nocturnal Hypoxemia Presents today for [facility] ER visit follow-up. She was seen [...] 09/01/2023 144/74 06/23/2023 122/[address] Marin D5cntjal[address] [facility], Dr. Brasher. DIABETES MELLITUS: Without [...] HENT: Head: Normocephalic and atraumatic. Mouth/Throat: Lips: [place]. Mouth: Mucous membranes are moist. Eyes: Conjunctiva/sclera: [...] Lysine Itching Naprosyn [Naproxen] GI Upset Nausea Kqqzljk-Cve-Pqg Red* Myalgia Tylenol-Codeine #3 * Vomiting Ventolin [...] then wash off in the morning Insulin Joliet, Disposable, (BD ULTRA-FINE FADY PEN NEEDLE) 32 [...] Level: 4 - Moderate documented in this encounterOhiohealth [facility]heastern [facility] Center12-16-2024 Telephone encounter Note * Telephone Encounter - Octavio Reza MD - 07/02/2024 5:08 PM EST Noted. Will see how she is doing tomorrow when sees Lydia. [facility]12-16-2024 Miscellaneous Notes* Telephone Encounter - [...] you. Asmita Tapia RN documented in this encounterOhiohealth Southeastern Medical Center12-16-2024 Telephone encounter Note * Telephone [...] severe symptoms as discussed. Asmita Tapia RN [facility]12-16-2024 Telephone encounter Note* Telephone Encounter [...] any severe sx's again. Asmita Tapia RN [facility]12-15-2024 Telephone encounter Note* Telephone Encounter - Octavio Reza MD - 07/01/2024 5:00 PM EST No significant growth on the urine culture See whether symptoms improved with taking macrobid. If symptoms persist despite taking antibiotic and despite urine cultures not growing any significant bacteria, consider follow up with urology for further evaluation. [facility]12-13-2024 Telephone encounter Note* Telephone Encounter - Asmita [...] when able. Thank you. Asmita Tapia RN [facility]12-12-2024 Telephone encounter Note* Telephone Encounter - Asmita Tapia RN - 06/28/2024 8:58 AM EST Patient notified. Asmita Tapia RN [facility]12-12-2024 Miscellaneous Notes* Telephone Encounter - Asmita Tapia [...] advise patient on her spouse's cell #: [phone]. Thank you. documented in this encounterOhiohealth Southeastern Medical Center12-11-2024 Telephone encounter Note * Telephone [...] 5 days. Authorizing Provider: OCTAVIO REZA MD [facility]12-11-2024 Telephone encounter Note* Telephone Encounter - Madeline Quintana LPN - 06/27/2024 5:59 PM EST Copy of message printed and given to PCP to address. Madeline Quintana LPN [facility]12-11-2024 Telephone encounter Note* Telephone Encounter - Palma Gibson LPN - 06/27/2024 9:10 AM EST Patient calling, checking on status of message. Please advise. [facility]12-10-2024 Telephone encounter Note* Telephone Encounter - Asmita [...] advise patient on her spouse's cell #: [phone]. Thank you. [facility]12-05-2024 [facility]12-05-2024 History of Present illness Narrative* Rama Mckeon [...] 21, 2024 9:23 AM documented in this encounterOhiohealth Southeastern Medical Center12-03-2024 Telephone encounter Note * Telephone [...] Mena RN June 19, 2024 9:31 AM [facility]12-03-2024 Miscellaneous Notes* Telephone Encounter - [...] 19, 2024 9:31 AM documented in this encounterOhiohealth Southeastern Medical Center12-03-2024 History of Present illness Narrative* Charis Lucas RP - 06/19/2024 9:00 AM EST Primary Care [...] PP Bedtime 06/19 160, 184/4 148, 138 12/ 219, 229/5 199/6 165 141, 78*, 249/7 [...] Lysine Itching Naprosyn [Naproxen] GI Upset Nausea Oiyodnh-Tfu-Bvh Red* Myalgia Tylenol-Codeine #3 * Vomiting Ventolin [...] Reported on 05/23/2024) 6 Each 4 Insulin Joliet, Disposable, (BD ULTRA-FINE FADY PEN NEEDLE) 32 [...] 11/28/24 Next PharmD visit: 07/31/24 Charis Lucas, ArmandoD, BCACP Primary Care Clinical Contract Clerk documented in this encounterOhiohealth Southeastern Medical Center12-03-2024 [facility]11-27-2024 Evaluation note* Diagnosis Onset Date Resolution Status Admit Date Abnormal stress test acute Nove mber 2023 2:00pm THAIS (obstructive sleep apnea) acute June 13, 2024 2:00pm Essential hypertension chronic No vember 2023 2:00pm Paroxysmal SVT (supraventricular tachycardia) chronic N ovember 2023 2:00pm [facility] Work Phone: [phone]) 347-993711-25-2024 Instructions* Patient Instructions* Octavio Reza MD - 06/11/2024 10:39 AM EST - Switch from Bactrim to Macrobid for your bladder infection; prescription sent to [facility]. - Take 22 units of insulin glargine at bedtime consistently. - Treat any blood sugar readings below 70 with fast-acting glucose (e.g., glucose tablets, sugary candy, 4 ounces of juice, or Gatorade). - Monitor your blood sugar levels regularly and record them. - Refills provided for Zolpidem, albuterol, amlodipine, metoprolol, and Symbicort; chicken picker medications from [facility] as needed. - Elevate your feet when possible and continue wearing compression stockings to manage swelling. - Continue riding your bicycle for exercise. - Next follow-up appointment in 4 months. documented in this encounterOhiohealth Southeastern Medical Center11-25-2024 [facility]11-25-2024 History of Present illness Narrative* Octavio Reza MD - 06/11/2024 10:03 AM EST This note was created using Bit Cauldronriter. Subjective Attila Kidd is a 78 year old female. Patient presents with: 4 month follow up: [facility] ER 06/08/24 follow up for UTI. Treated [...] DM, presenting for a 4- month follow-up [facility] visit for a UTI. Attila was [...] (Patient not taking: Reported on 05/23/2024) Insulin Joliet, Disposable, (BD ULTRA-FINE FADY PEN NEEDLE) 32 [...] and 24-hour Holter monitor. - Follow-up with extruder operator multiple Dr. Bosch scheduled for Tuesday. # Essential hypertension (I10) - Managed with amlodipine and ramipril. - Refills ordered for both medications. - Blood pressure well-controlled. # Stasis edema of both lower extremities (I87.303) - Mild edema noted. - Continues to use compression stockings and elevate legs. - Encouraged regular leg exercises and cycling to promote venous return. Octavio Reza MD documented in this encounterOhiohealth Southeastern Medical Center11-20-2024 [facility]11-20-2024 History of Present illness Narrative* Federica Alonzo [...] 06, 2024 11:52 AM documented in this encounterOhiohealth Southeastern Medical Center11-15-2024 Telephone encounter Note * Telephone Encounter - Ritika Santos LPN - 06/01/2024 9:46 AM EST Patients notified of providers message and verbalized understanding [facility]11-15-2024 Miscellaneous Notes* Telephone Encounter - [...] apt on 06-11-24. Please advise spouse. PH: [phone] Cayla Lynne LPN documented in this encounterOhiohealth Southeastern Medical Center11-15-2024 Telephone encounter Note * Telephone Encounter - Lydia Grande APRN.CNS - 06/01/2024 8:39 AM EST Looks like labs are due in July / endocrine orders. [facility]11-14-2024 Telephone encounter Note* Telephone Encounter - Cayla Lynne LPN - 05/31/2024 8:05 AM EST Spouse called to check and see if lab work is needed for pt before her apt on 06-11-24. Please advise spouse. PH: [phone] Cayla Lynne LPN [facility]11-08-2024 Miscellaneous Notes* Telephone Encounter - [...] 25, 2024 10:56 AM documented in this encounterOhiohealth Southeastern Medical Center11-08-2024 Telephone encounter Note * Telephone [...] Devlin RN May 25, 2024 10:56 AM [facility]11-08-2024 Miscellaneous Notes* Telephone Encounter - [...] 274. Pt was discharged and home by 0630 Tuesday sugar readings: 0415 105 0700 111 took 3 units of Novolog with breakfast 1020 173 took 5 units of Novolog with lunch 6172 247 9834 84 7706 399 3385 190 Took 6 units of Novolog with supper 6980 614 9533 155 took new dose of 20 units Lantus : 0423 123 0600 163 took 4 units of Novolog with breakfast 0940 193 1113 218 took 6 units of Novolog with lunch 7605 312 7478 230 took 7 units of Novolog with [...] :n/a Protocols used: Diabetes - High Blood Jebvi-HCMIK-IK * Telephone Encounter - Trudy Wang MA - 05/25/2024 8:58 AM EST Patient and contacted the office to report that she was in the ED early this morning. Patient was not able to sleep last night. Blood sugar reading at 2:15 am was 253 and the patient was feeling heart palpitations so her took her to [facility]. Dinner last night was a [...] call back on the husbands phone at [phone]. documented in this encounterOhiohealth Southeastern Medical Center11-08-2024 Telephone encounter Note * Telephone Encounter - Gloria Rand, DEONNA - 05/25/2024 9:38 AM EST Called and [...] took 5 units of Novolog with lunch 3635 450 1219 84 9381 675 4295 190 Took 6 units of Novolog with supper 4774 716 3785 155 took new dose of 20 units Lantus : 0423 123 0600 163 took 4 units of Novolog with breakfast 0940 193 1113 218 took 6 units of Novolog with lunch 8463 161 8112 230 took 7 units of Novolog with [...] :n/a Protocols used: Diabetes - High Blood Wrgif-ZEIGP-BD [facility]11-08-2024 Telephone encounter Note* Telephone Encounter - Trudy Wang MA - 05/25/2024 8:58 AM EST Patient and contacted the office to report that she was in the ED early this morning. Patient was not able to sleep last night. Blood sugar reading at 2:15 am was 253 and the patient was feeling heart palpitations so her took her to [facility]. Dinner last night was a [...] call back on the husbands phone at [phone]. [facility]11-06-2024 History of Present illness Narrative* Renetta Mcgee APRN.LOCKER ATTENDANT - 05/23/2024 12:45 PM EST OFFICE VISIT [...] are doing very well Working with ENDO FINISH PAINTER Sugars have run mostly between 105-177 with [...] 1 capsule by mouth once daily. Insulin Joliet, Disposable, (BD ULTRA-FINE FADY PEN NEEDLE) 32 [...] Lysine Itching Naprosyn [Naproxen] GI Upset Nausea Wjggxhk-Xdi-Stn Red* Myalgia Tylenol-Codeine #3 * Vomiting Ventolin [...] (MNT) Renetta Mcgee CNP documented in this encounterOhiohealth Southeastern Medical Center11-06-2024 [facility]11-05-2024 [facility]11-05-2024 History of Present illness Narrative* Phoebe Carrion MA - 05/22/2024 2:03 PM EST POPULATION HEALTH NAVIGATION OUTREACH Action/FYI Value Hub Outreach Navigator: Patient requesting to cancel 06/15 sleep medicine appointment. Patient will reschedule at a later date, no need to call. Thank you. Mekat Active: Yes Outreach to patient Appointment cancelled per patient's request. No outreach needed per RN. Reason for Outreach Value Hub Care Gaps due: N/A Patient Contacted: Unable or unnecessary to reach patient: Updated appointment notes Navigation Signature: Phoebe Carrion MA May 22, 2024 2:03 PM * Federica Alonzo RN - 05/22/2024 10:47 AM EST Images from the original note were not included. [facility] Care Path Telephonic Outreach Provider Action/FYI Navigator: [...] HTN lab care gaps addressed 07/04/2024 04/19/2024 Federcia Alonzo RN -- Intake assessments completed: ADLs, [...] is High Blood Pressure Disposition Based on contract project manager, the following disposition is advised: No action needed Federica Alonzo RN May 22, 2024 10:53 AM documented in this encounterOhiohealth Southeastern Medical Center11-05-2024 [facility]10-25-2024 Telephone encounter Note* Telephone Encounter - Norma [...] the case that they need advice through [facility]. Norma Devlin RN May 11, 2024 8:57 AM [facility]10-25-2024 Miscellaneous Notes* Telephone Encounter - [...] the [facility] Norma Devlin RN May 11, [...] has only been eating prepackaged salads from [employer]. Patient is concerned about blood sugars going [...] again. Please reach out to patient at [phone]. documented in this encounterOhiohealth Southeastern Medical Center10-24-2024 Telephone encounter Note * Telephone [...] - 4 units 301-350 - 5 units [facility]10-24-2024 Telephone encounter Note* Telephone Encounter [...] has only been eating prepackaged salads from [employer]. Patient is concerned about blood sugars going [...] again. Please reach out to patient at [phone]. [facility]10-24-[facility] Telephone encounter Note* Telephone Encounter - Mel Morin RN - 05/10/2024 12:15 PM EDT Patient called and notified of the below recommendations. Mel Morin RN [facility]10-24-2024 Miscellaneous Notes* Telephone Encounter - [...] scale. Mel Morin RN documented in this encounterOhiohealth Southeastern Medical Center10-24-2024 Telephone encounter Note * Telephone Encounter - Renetta Mcgee APRN.CNP - 05/10/2024 9:47 AM EDT Noted, agree that infection can increase blood sugars Given patient age, I am not concerned about her acutely elevated blood sugar, tenzin with the infection. Use sliding scale as directed. [facility]10-24-2024 Telephone encounter Note* Telephone Encounter [...] in her sliding scale. Mel Morin RN [facility]10-21-2024 [facility]10-21-2024 History of Present illness Narrative* Davon Wolfe APRN.LOCKER ATTENDANT - 05/07/2024 3:17 PM EDT SUBJECTIVE Attila Kidd is a 78 year old female here today for a check up on her medical problems. Chief Complaint Patient presents with: Recheck: [facility] ER 05/05/24 shortness of breath with chest discomfort was note arrhythmia Dental Problem: questions a tooth abscess. HPI Attila Kidd is a 78 year old female. She is an established patient of Octavio Reza MD. Here today for ER follow up. Seen in the ER at [facility] on 05/04/2024. Went to ER for SOB [...] (Patient not taking: Reported on 05/07/2024) Insulin Joliet, Disposable, (BD ULTRA-FINE FADY PEN NEEDLE) 32 [...] Lysine Itching Naprosyn [Naproxen] GI Upset Nausea Lnfxnho-Cfn-Qgc Red* Myalgia Tylenol-Codeine #3 * Vomiting Ventolin [Albuterol* GI Upset, Vomiting ACTIVE PROBLEM LIST Nocturnal Hypoxemia - 09/22/2023 Major Depressive Disorder, Recurrent, in Full Remission ([facility]) - 06/25/2023 Palpitations - 05/16/2023 Paroxysmal Svt (Supraventricular Tachycardia) ([facility]) - 11/12/2022 Adverse Reaction to Hmg-Coa Reductase Inhibitor - 06/07/2022 Comment: Historical: see allergies Stasis Edema of Both Lower Extremities - 04/27/2018 Morbid Obesity With Bmi of 45.0-49.9, Adult ([facility]) - 04/18/2017 Asthma - 05/06/2014 Vitamin D Deficiency - 08/21/2010 Charcot Foot Due to Diabetes Mellitus ([facility]) Debility - 09/30/2009 Rosacea - 09/06/2007 Insomnia, Unspecified - 06/01/2007 Type I Diabetes Mellitus With Manifestations ([facility]) - 09/15/2005 Essential Hypertension - 09/15/2005 Arthropathy [...] appointment.. Davon Wolfe APRN-FABIO documented in this encounterOhiohealth Southeastern Medical Center10-08-2024 History of Present illness Narrative* Charis Lucas [facility] - 04/24/2024 9:30 AM EDT /Primary Care [...] Lysine Itching Naprosyn [Naproxen] GI Upset Nausea Wnutsld-Uwk-Tyx Red* Myalgia Tylenol-Codeine #3 * Vomiting Ventolin [...] 1 capsule by mouth once daily. Insulin Joliet, Disposable, (BD ULTRA-FINE FADY PEN NEEDLE) 32 [...] Charis Lucas, ArmandoD, BCACP Primary Care Clinical Contract Clerk documented in this encounterOhiohealth Southeastern Medical Center10-08-2024 [facility]10-03-2024 [facility]10-03-2024 History of Present illness Narrative* Federica Alonzo [...] 19, 2024 1:25 PM documented in this encounterOhiohealth Southeastern Medical Center10-02-2024 History of Present illness Narrative* [...] PATIENT PRESENTS WITH AN IMPLANTABLE OR ATTACHED NATIONAL SALES CONSULTANT: No RADIOLOGY DEPARTMENT: General X-ray: Exam(s) Completed: Chest X-Ray PERIPHERAL IV DATA: Not applicable SIGNED BY: RT Jose(Lillian) April 18, 2024 9:50 AM documented in this encounterOhiohealth Southeastern Medical Center10-02-2024 [facility]10-02-2024 [facility]10-02-2024 History of Present illness Narrative* Smiley Prieto APRN.LOCKER ATTENDANT - 04/18/2024 9:30 AM EDT This note was created using NoteWriter. Subjective tAtila Kidd is a 78 year old female. 78 year old female with PMH HTN, hyperlipidemia, SVT, asthma, GERD, DM, presents for illness. Acute onset 2 days ago +cough +sneezing +lymph nodes Denies sore throat Denies eye complaints Denies fever or chills Denies body aches or fatigue Denies dyspnea Denies CP Denies tobacco usage The history is provided by the patient. No cable installer repairer helper was used. Cough This is a new [...] [Amiloride-Hydrochlorothiazide], Oseltamivir, Doxycycline, Escitalopram, Lysine, Naprosyn [Naproxen], Umketbs-Xgz-Hvr Reductase Inhibitors, Tylenol-Codeine #3 [Acetaminophen-Codeine], and Ventolin [...] 1 capsule by mouth once daily. Insulin Joliet, Disposable, (BD ULTRA-FINE FADY PEN NEEDLE) 32 [...] A/B & RSV PCR, ROUTINE Smiley Prieto APRN.LOCKER ATTENDANT documented in this encounterOhiohealth Southeastern Medical Center09-24-2024 History of Present illness Narrative* Charis Lucas [facility] - 04/10/2024 9:00 AM EDT [...] Lysine Itching Naprosyn [Naproxen] GI Upset Nausea Dielfdz-Hyz-Vwq Red* Myalgia Tylenol-Codeine #3 * Vomiting Ventolin [...] (Patient not taking: Reported on 01/12/2024) Insulin Joliet, Disposable, (BD ULTRA-FINE FADY PEN NEEDLE) 32 [...] Rx coverage: Payor: T MEDICARE / Plan: [employer] MEDICARE PPO / Product Type: PPO / [...] visit: 05/23/24 Next PharmD visit: 04/24/24 Charis Lucas PharmD, BCACP Primary Care Clinical Contract Clerk documented in this encounterOhiohealth Southeastern Medical Center09-24-2024 [facility]09-23-2024 [facility]09-23-2024 History of Present illness Narrative* Renetta Mcgee APRN.CNP - 04/09/2024 10:51 AM EDT Patient's request for medication is as follows Requested Prescriptions Signed Prescriptions Disp Refills glucagon (GVOKE HYPOPEN 1-PACK) 1 mg/0.2 mL auto-injector 0.2 mL 3 Sig: Inject 1 mg subcutaneously as needed. Order entered - please phone pharmacy and notify patient. Renetta Mcgee APRN.CNP documented in this encounterOhiohealth Southeastern Medical Center09-23-2024 History of Present illness Narrative* Sergo Perez RD - 04/09/2024 10:00 AM EDT [facility] Medical Nutrition Therapy Visit Type: In-person Patient [...] loss Blood sugar regulation Diet History: Breakfast: [place], eggs, coffee Lunch: salad with turkey deli [...] - Physical Activity options: stationary bike - [employer] Bandz[employer] raissa 2 CGM ordered however pt not [...] (Patient not taking: Reported on 01/12/2024) Insulin Joliet, Disposable, (BD ULTRA-FINE FADY PEN NEEDLE) 32 [...] lbs, 10% weight loss = 0 lbs [place] body weight: 67.4 kg (148 lb 7.7 [...] by: Sergo Perez RD documented in this encounterOhiohealth Southeastern Medical Center09-23-2024 [facility]09-18-2024 [facility]09-18-2024 History of Present illness Narrative* Federica Alonzo RN - 04/04/2024 10:58 AM EDT CDM ENROLLMENT Provider Action / FYI: Pt given the [facility] [employer] phone number. Educated on the purpose of program, resources available,and hours of operation. Patient identified by name and date of . Discussed care with patient. Program Details Chronic Disease Management Status: Enrolled Effective Dates: 04/04/2024 - present Responsible Staff: Federica Alonzo, RN Support and Services: Diabetes Assessments CDM [...] were you homeless or living in a long term (including now)?: No Transportation Needs In the [...] In the past 12 months has the [employer], gas, oil, or water company threatened to [...] ADLs, Fall Risk, SDOH Disposition Based on contract project manager, the following disposition is advised: No action needed Federica Alonzo RN April 04, 2024 11:15 AM documented in this encounterOhiohealth Southeastern Medical Center09-13-2024 Instructions* Patient Instructions* Christine Bianchi MD - 03/30/2024 2:37 PM EDT SERVICE DATE: 03/30/2024 SERVICE TIME: 1:40 PM Oral Exhaled Nitric Oxide measurement: 25.0 (ppb) Oral Exhaled Nitric Oxide measurement (Previous Encounters) Test Date Oral Exhaled Nitric Oxide (ppb) 06/23/2023 16.0 04/30/2021 45.0 (A) 02/23/2019 24.0 04/18/2017 56.0 (A) documented in this encounterOhiohealth Southeastern Medical Center09-13-2024 History of Present illness Narrative* Christine Binachi MD - 03/30/2024 2:15 PM EDT Images from the original note were not included. . [facility] [place] Note Patient name: Attila Kidd PCP: Octavio Reza MD CC: Follow-up asthma HPI: Attila Kidd 78 year old female former 15-ttkd-rayy smoker with PMH significant for morbid obesity, HTN, HLD, GERD, DM2, THAIS noncompliant with BiPAP usage, nocturnal oxygen need, asthma, SVT/palpitations. Recently seen by LOCKER ATTENDANT for an acute visit for worsening asthma symptoms. Baseline inhaledtherapy with generic Symbicort and as needed albuterol. She had previously been on Advair but complained of significant palpitations. At [facility], she continued to have issues with [...] Lysine Itching Naprosyn [Naproxen] GI Upset Nausea Htksego-Jqq-Cjj Red* Myalgia Tylenol-Codeine #3 * Vomiting Ventolin [...] (Patient not taking: Reported on 01/12/2024) Insulin Joliet, Disposable, (BD ULTRA-FINE FADY PEN NEEDLE) 32 [...] of BiPAP -Uses wedge and supplemental oxygen Christine Bianchi MD [facility] [place] documented in this encounterOhiohealth Southeastern Medical Center09-13-2024 Procedure note* Zora Cortes RPFT [...] DATE: March 30, 2024 TIME: 1:40 PM [facility]09-13-20[facility] Procedure note* Zora Cortes RPFT [...] 2024 TIME: 1:40 PM documented in this encounterOhiohealth Southeastern Medical Center09-13-2024 Nurse Note* Elina Sarkar LPN - 03/30/2024 1:39 PM EDT Intake information documented in the prior visit with JAI Matthew today. [facility]-13-[facility] History of Present illness Narrative* Zora Cortes RPFT - 03/30/2024 1:39 PM EDT PULM FUNCTION: Provider: Christine Bianchi MD Assisting Tech: Zora Cortes RPFT Exhaled Nitric Oxide: 1 documented in this encounterOhiohealth Southeastern Medical Center09-13-2024 Nurse Note* Elina Sarkar LPN - 03/30/2024 1:39 PM EDT Intake information documented in the prior visit with JAI Matthew today. documented in this encounterOhiohealth Southeastern Medical Center09-06-2024 Telephone encounter Note * Telephone [...] blood sugar) TDD 30 units daily Darlene Mean RN March 23, 2024 3:08 PM [facility]09-06-2024 Miscellaneous Notes* Telephone Encounter - [...] 23, 2024 3:08 PM documented in this encounterOhiohealth Southeastern Medical Center09-05-2024 Telephone encounter Note * Telephone Encounter - Sergo Perez RD - 03/22/2024 8:48 AM EDT [facility] MyChart to be able to conduct virtual video visit today. [facility] is not interested in getting set up as notes difficulty navigating computer. Pt interested rescheduling appointment for in-person. Appointment to be rescheduled for April 09 at 10 am. [facility] Work Phone: 1(311) 464-503109-05-2024 Miscellaneous Notes* Telephone Encounter - Sergo Perez RD - 03/22/2024 8:48 AM EDT [facility] has not set up MyChart to be able to conduct virtual video visit today. [facility] is not interested in getting set up as notes difficulty navigating computer. Pt interested rescheduling appointment for in-person. Appointment to be rescheduled for April 09 at 10 am. documented in this encounterOhiohealth Southeastern Medical Center08-29-2024 Telephone encounter Note * Telephone Encounter - Elina Sarkar LPN - 03/15/2024 9:50 AM EDT [facility] Quang Morin. Approval code [id number]. Approval through 07/17/24. Attempted to contact Elijah but call was disconnected. Detailed message left on patient's phone re: same. Elina Sarkar LPN [facility]08-29-2024 Miscellaneous Notes* Telephone Encounter - Elina Sarkar LPN - 03/15/2024 9:50 AM EDT Called [employer]. Symbicort VITALY authorized per Quang Morin. Approval code [id number]. Approval through 07/17/24. Attempted to contact Elijah [...] last week on 03/07. documented in this encounterOhiohealth [facility]heastern Medical Center08-29-2024 Telephone encounter Note * Telephone Encounter - Kenisha Maldonado MA - 03/15/2024 8:30 AM EDT , Elijah calling and states his was given 2 generic inhalers and did not work. Symbicortis the only inhaler that works for her. asking if her Symbicort has been authorized? She was seen last week on 03/07. [facility] History of Present illness Narrative* Lydia Manuel RN - 03/14/2024 8:28 AM EDT CC CENTRAL MATT NURSE - CHART REVIEW Provider MIGUE PCC Action 02/13/2023 presented to non [facility] ED with complaint of chest pain and shortness of breath with exertion. Pt identified by name and . Reason for Review: Payor request Patient Attributed To: HOWIE Payer: CONNER Chart Review For: Utilization: ED Total Patient High CostTotal Patient High Cost {HIGH COST:124260) Quality measure review Payor request for assistance Action Taken: Data submitted to payor Lydia Manuel RN March 14, 2024 8:28 AM documented in this encounterOhiohealth Southeastern Medical Center08-26-2024 Note* Addendum Note - Renetta Mcgee APRN.CNP - 03/12/2024 10:13 AM EDTAddended by: RENETTA MCGEE on: 03/12/2024 10:13 AM Modules accepted: Orders [facility] Telephone encounter Note* Telephone Encounter [...] pharmacy and notify patient. Renetta Mcgee APRN.CNP [facility]08-[facility]24 Miscellaneous Notes* Addendum Note - [...] phone pharmacy and notify patient. Renetta Mcgee APRN.LOCKER ATTENDANT * Telephone Encounter - Parris Eckert RN - 03/12/2024 8:51 AM EDT Pt called in about her insulin glargine, she states Fidel said it wasn't sent in correctly. I lether know it was sent by her endocrinologists office and she would need to call them if they were handling the medication. Pt is going to called Alyssapastora Everardo FOLDER MACHINE ADJUSTER documented in this encounterOhiohealth Southeastern Medical Center08-26-2024 Telephone encounter Note * Telephone [...] Lacy RN March 12, 2024 9:02 AM [facility] Miscellaneous Notes* Telephone Encounter - [...] 12, 2024 9:02 AM documented in this encounterOhiohealth Southeastern Medical Center08-26-2024 Telephone encounter Note * Telephone Encounter - Parris Eckert RN - 03/12/2024 8:51 AM EDT Pt called in about her insulin glargine, she states Lupejerrellyeimi said it wasn't sent in correctly. I lether know it was sent by her endocrinologists office and she would need to call them if they were handling the medication. Pt is going to called Trevin Mcgee FOLDER MACHINE ADJUSTER [facility] History of Present illness Narrative* Radha Haynes APRN.FABIO - 03/07/2024 11:00 AM EDT Images [...] palpitations while on Advair and presented to [facility] ED on 03/02. Advair was stopped and [...] Lysine Itching Naprosyn [Naproxen] GI Upset Comment:Nausea Gjajkfy-Ehk-Agz Red* Myalgia Tylenol-Codeine #3 * Vomiting Ventolin [...] Lantus, not Basaglar per patient preference Insulin Joliet (Disposable) 32 gauge x 5/32 Commonly known [...] 20:53 EDT Reading Location ID and State: [facility] / [place] Tel [phone], Service support , Review of Systems Constitutional: [...] exam - review of CT report from [facility] ED 03/02 without sign of pulmonary edema/acute illness - resume Symbicort and monitor symptoms F/u scheduled with Dr. Bianchi 03/30 Portions of this documentation were copied and pasted from previous office visit notes in order to provide a cohesive continuity of the history. The note has been reviewed and edited and updated as necessary. Radha Haynes APRN.FABIO Momin spent a total of 39 minutes on the date of the service which included preparing to see the patient, yvqx-ul-veiw patient care, completing clinical documentation, obtaining and/or reviewing separately obtained history, performing a medically appropriate examination, and counseling and educating the patient/family/caregiver. documented in this encounterOhiohealth Southeastern Medical Center08-21-2024 Telephone encounter Note * Telephone Encounter - Elina Sarkar LPN - 03/07/2024 9:04 AM EDT Appt scheduled. Elian Sarkar LPN [facility] Miscellaneous Notes* Telephone Encounter - [...] follow up in the office with Dr. Bianchi on 03/30/2024, but wondering if she should be seen sooner. She is asking for appointment for today. Patient can be contacted back at [phone]. * Telephone Encounter - Trudy Wang MA [...] Octavio Reza MD routed this conversation to [facility] Octavio Leiva MD 03/06/24 8:29 PM Note Stop the Breyna inhaler as well. Reviewed that had diagnosis of mild persistent asthma Since has had problems with several inhalers tried, can see how her breathing does without med to replace Symbicort. Follow up with real estate investment analyst if has recurrence of cough or wheezing. [...] with her heart. Pt was seen at [facility] ED on 03/02/24 & states she was [...] advise. Bettina Murray LPN documented in this encounterOhiohealth Southeastern Medical Center08-21-2024 Telephone encounter Note * Telephone Encounter - Trudy Wang MA - 03/07/2024 8:40 AM EDT Patient called in stating she is not feeling well. She contacted this office with same message below that was sent to PCP. Patient states she has a follow up in the office with Dr. Bianchi on 03/30/2024, but wondering if she should be seen sooner. She is asking for appointment for today. Patient can be contacted back at [phone]. [facility] Telephone encounter Note* Telephone Encounter [...] Octavio Reza MD routed this conversation to [facility] Octavio Leiva MD 03/06/24 8:29 PM Note Stop the Breyna inhaler as well. Reviewed that had diagnosis of mild persistent asthma Since has had problems with several inhalers tried, can see how her breathing does without med to replace Symbicort. Follow up with real estate investment analyst if has recurrence of cough or wheezing. [...] with her heart. Pt was seen at [facility] ED on 03/02/24 & states she was [...] ED again. Please advise. Bettina Murray LPN [facility] Telephone encounter Note* Telephone Encounter [...] to f/u on symptoms. Parris Eckert RN [facility]08-[facility]24 Miscellaneous Notes* Telephone Encounter - [...] med to replace Symbicort. Follow up with real estate investment analyst if has recurrence of cough or wheezing. * Telephone Encounter - Bettina Murray LPN - 03/06/2024 4:52 PM EDT Pt reports she has been using generic advair, was sent to pharm 02/20/24. Pt states she started feeling she was having an erratic heart beat & she had felt ' a let down feeling' with her heart. Pt was seen at [facility] ED on 03/02/24 & states she was [...] advise. Bettina Murray LPN documented in this encounterOhiohealth Southeastern Medical Center08-20-2024 Telephone encounter Note * Telephone Encounter - Octavio Reza MD - 03/06/2024 8:23 PM EDT Stop the Breyna inhaler as well. Reviewed that had diagnosis of mild persistent asthma Since has had problems with several inhalers tried, can see how her breathing does without med to replace Symbicort. Follow up with real estate investment analyst if has recurrence of cough or wheezing. [facility] Telephone encounter Note* Telephone Encounter - Bettina Murray LPN - 03/06/2024 4:52 PM EDT Pt reports she has been using generic advair, was sent to pharm 02/20/24. Pt states she started feeling she was having an erratic heart beat & she had felt ' a let down feeling' with her heart. Pt was seen at [facility] ED on 03/02/24 & states she was [...] ED again. Please advise. Bettina Murray LPN [facility]08-19-20[facility] Telephone encounter Note* Telephone Encounter - Destinee Sims LPN - 03/05/2024 7:33 PM EDT Patient notified, order faxed to [facility] Scheduling. Destinee Sims LPN [facility]08-[facility] Miscellaneous Notes* Telephone Encounter - Destinee Sims LPN - 03/05/2024 7:33 PM EDT Patient notified, order faxed to [facility] Scheduling. Destinee Sims LPN * Telephone Encounter - Lydia Grande APRN.CNS - 03/05/2024 4:30 PM EDT [place] * Telephone Encounter - Cesar Brush LPN - 03/05/2024 8:36 AM EDT Patient calling she has gotten her reminder letter form [facility] that it is time to get mamm order. Patient needs done after 03/22/2024. Pending order and fax to [facility] at [phone] when completed, notify patient. Please advise documented in this encounterOhiohealth Southeastern Medical Center08-19-2024 Telephone encounter Note * Telephone Encounter - Lydia Grande APRN.COMMUNITY DEVELOPMENT COORDINATOR - 03/05/2024 4:30 PM EDT OK [facility]08-[facility] Telephone encounter Note* Telephone Encounter - Cesar Brush LPN - 03/05/2024 8:36 AM EDT Patient calling she has gotten her reminder letter form [facility] that it is time to get mamm order. Patient needs done after 03/22/2024. Pending order and fax to [facility] at [phone] when completed, notify patient. Please advise [facility] History of Present illness Narrative* Charis Lucas, [facility] - 02/28/2024 9:00 AM EDT [...] 178 02/25 114/4 150/4 187 197/7 198 10 138/4 139 220/6 198 235/8 140 8/9 [...] Lysine Itching Naprosyn [Naproxen] GI Upset Nausea Tptgoxw-Pst-Jmh Red* Myalgia Tylenol-Codeine #3 * Vomiting Ventolin [...] (Patient not taking: Reported on 01/12/2024) Insulin Joliet, Disposable, (BD ULTRA-FINE FADY PEN NEEDLE) 32 [...] Charis Lucas, Willie, BCACP Primary Care Clinical Contract Clerk documented in this encounterOhiohealth Southeastern Medical Center08-06-2024 Telephone encounter Note * Telephone Encounter - Pattie Giles RN - 02/21/2024 8:32 AM EDT Call placed to patient and notified of below. Patient verbalizes understanding. Pattie Giles RN [facility]08-06-2024 Miscellaneous Notes* Telephone Encounter - [...] in. Pattie Giles RN documented in this encounterOhiohealth Southeastern Medical Center08-05-2024 Telephone encounter Note * Telephone [...] or switch to another inhaler, like Breo. [facility]08-05-2024 Telephone encounter Note* Telephone Encounter - Pattie Giles RN - 02/20/2024 8:11 AM EDT Patient calls to report that her insurance isn't going to cover the name brand Symbicort and she will need an alternative inhaler prescription sent in. Pattie Giles RN [facility]07-31-2024 History of Present illness Narrative* Renetta Mcgee, SANDSTONE SPLITTER.LOCKER ATTENDANT - 02/15/2024 2:45 PM EDT OFFICE VISIT [...] this interval not displayed. Recent Labs 05/04/21 0709/02/21 0712/24/21 0718 09/14/22 0724 05/16/23 0725 09/01/23 [...] (Patient not taking: Reported on 01/12/2024) Insulin Joliet, Disposable, (BD ULTRA-FINE FADY PEN NEEDLE) 32 [...] Lysine Itching Naprosyn [Naproxen] GI Upset Nausea Nyulfvf-Dvf-Ajv Red* Myalgia Tylenol-Codeine #3 * Vomiting Ventolin [...] current insulin dosing STRONGLY RECOMMEND SEEING ENDO FINISH PAINTER and starting to learn insulin to carb ratio, and advanced carb counting. Patient/ much more relaxed today and are starting to feel that they are able to be in control of the patient's blood sugars regardless of her diet, although patient is still being very carefulwith her choices. CONSULT TO ENDO FINISH PAINTER. Plan: COMPREHENSIVE METABOLIC PANEL, LIPID PANEL, NONFASTING, ALBUMIN/CREATININE RATIO, URINE, HEMOGLOBIN A1C, ENDOCRINOLOGY DIETITIAN VISIT (MNT) Renetta Mcgee CNP documented in this encounterOhiohealth Southeastern Medical Center07-29-2024 History of Present illness Narrative* Octavio Reza MD - 02/13/2024 9:23 AM EDT This note was created using Bit Cauldronriter. Subjective Attila Kidd is a 78 year [...] able to tolerate BiPAP. Was evaluated at [facility]. Gatorade 1 small bottle and 5 to [...] then wash off in the morning Insulin Joliet, Disposable, (BD ULTRA-FINE FADY PEN NEEDLE) 32 [...] - 4.00 k/uL 0.48 (L) 0.81 (L) [place]% % 6.3 7.6 Abs [place] <0.87 k/uL 0.46 0.40 E[place]% % 3.6 [...] in adult, unspecified whether serious comorbidity present ([facility]) E66.01 Z68.42 Doingw ell with gradual weight [...] which included preparing to see the patient, ksvf-no-ssrr patient care, completing clinical documentation, obtaining and/or reviewing separately obtained history, performing a medically appropriate examination, counseling and educating the pat ient/family/caregiver, ordering medications, tests, or procedures, independently interpreting results (not separately reported), and communicating results to the patient/family/caregiver. Octavio Reza MD documented in this encounterOhiohealth Southeastern Medical Center07-11-2024 Telephone encounter Note * Telephone Encounter - Ritika Santos LPN - 01/26/2024 3:01 PM EDT Patient notified of providers message and verbalized understanding [facility] Miscellaneous Notes* Telephone Encounter - [...] and not 02/06. Call patient with update [phone]. Thank you. * Telephone Encounter - Bettina Murray LPN - 01/25/2024 8:13 AM EDT Pt has an appt 02/13/24 & is asking that lab orders be placed if she is due for any. Please notify pt. Please notify pt that her appt is 02/12 not 02/06 as she told me on the phone Bettina Murray LPN documented in this encounterOhiohealth Southeastern Medical Center07-11-2024 Telephone encounter Note * Telephone Encounter - Lydia Grande APRN.CNS - 01/26/2024 2:42 PM EDT Labs ordered [facility] Telephone encounter Note* Telephone Encounter [...] date on her calendar. Darlene Mena RN [facility]07-10-20[facility] Telephone encounter Note* Telephone Encounter - Asmita Tapia RN - 01/25/2024 4:29 PM EDT Patient calling to check on status of request below. Please place lab orders for upcoming appt, when able. Pt reminded that her appointment is on 02/13/24 and not 02/06. Call patient with update [phone]. Thank you. [facility]07-10-[facility] Telephone encounter Note* Telephone Encounter - Bettina Murray LPN - 01/25/2024 8:13 AM EDT Pt has an appt 02/13/24 & is asking that lab orders be placed if she is due for any. Please notify pt. Please notify pt that her appt is 02/12 not 02/06 as she told me on the phone Bettina Murray LPN [facility]07-03-2024 History of Present illness Narrative* Tawanda Wolff RN - 01/18/2024 9:37 AM EDT DIABETES CARE AND EDUCATION VISIT Location: [place] Type of visit: In person individual PATIENT'S [...] 2024 TIME: 9:37 AM documented in this encounterOhiohealth Southeastern Medical Center06-27-2024 History of Present illness Narrative* EdisCharis olguin, [facility] - 01/12/2024 9:00 AM EDT [...] Lysine Itching Naprosyn [Naproxen] GI Upset Nausea Fjugtca-Enp-Pku Red* Myalgia Tylenol-Codeine #3 * Vomiting Ventolin [...] 1 capsule by mouth once daily. Insulin Joliet, Disposable, (BD ULTRA-FINE FADY PEN NEEDLE) 32 [...] Rx coverage: Payor: T MEDICARE / [facility] / Product Type: [...] Charis Lucas, PharmD, BCACP Primary Care Clinical Contract Clerk documented in this encounterOhiohealth Southeastern Medical Center06-17-2024 History of Present illness Narrative* [...] 1 capsule by mouth once daily. Insulin Joliet, Disposable, (BD ULTRA-FINE FADY PEN NEEDLE) 32 [...] taking: Reported on 01/02/2024) flash glucose sensor (payeverSTYLE RAISSA 2 SENSOR) kit Apply new sensor [...] Lysine Itching Naprosyn [Naproxen] GI Upset Nausea Pqmaztn-Prf-Twl Red* Myalgia Tylenol-Codeine #3 * Vomiting Ventolin [...] has had this lesion removed by her sales product manager a few years ago. She will follow-up with Dr. Blanton for dermatologic reevaluation of potentially precancerous lesion. Tamika Morris MD documented in this encounterOhiohealth Southeastern Medical Center06-11-2024 Telephone encounter Note * Telephone Encounter - Norma Devlin RN - 12/27/2023 9:48 AM EDT L/M for Pt to return call to office re: below notation per CNP. Norma Underwood RN December 27, 2023 9:48 AM [facility] Miscellaneous Notes* Telephone Encounter - [...] are leveling out. * Telephone Encounter - Cammy Moreno RN - 12/26/2023 8:24 AM EDT [...] hears back from you. documented in this encounterOhiohealth Southeastern Medical Center06-10-2024 Telephone encounter Note * Telephone [...] hear that her sugars are leveling out. [facility] Telephone encounter Note* Telephone Encounter - Cammy Moreno RN - 12/26/2023 8:24 AM EDT [...] instructions until she hears back from you. [facility] Telephone encounter Note* Telephone Encounter - Tierney Deluca MA - 12/09/2023 4:33 PM EDT Patient phoned and relayed message below as per provider. She reports understanding and has no further questions. Tierney Deluca MA [facility]05-24-2024 Miscellaneous Notes* Telephone Encounter - [...] for her to sit with the ENDO FINISH PAINTER (she will be starting her clinic in [...] like called on her husbands phone at [phone]. documented in this encounterOhiohealth Southeastern Medical Center05-24-2024 Telephone encounter Note * Telephone Encounter - Renetta Mcgee APRN.CNP - 12/09/2023 4:14 PM EDT Please let the patient know she can have a snack and depending on what it is, can take 2-3 units offast acting insulin. I would ideally like for her to sit with the ENDO FINISH PAINTER (she will be starting her clinic in December) She really needs to understand the carb counting and how insulin to carb ratio works for coverage, this knowledge will put an end to her frustration with her sugars and keep her well controlled no matter what she decides to eat! Her JAYSON confirms TYPE I status for her. [facility] Telephone encounter Note* Telephone Encounter [...] like called on her husbands phone at [phone]. [facility] Telephone encounter Note* Telephone Encounter - Madeline Quintana LPN - 12/09/2023 1:47 PM EDT Patient did go to the [facility] ER on 12/07/23. Copies of ED visit copied for provider. ED discharge note instructs patient to follow up with PCP only as needed. Madeline Quintana LPN [facility]-24-2024 Miscellaneous Notes* Telephone Encounter - Madeline Quintana LPN - 12/09/2023 1:47 PM EDT Patient did go to the [facility] ER on 12/07/23. Copies of ED visit [...] for evaluation. Please advise. documented in this encounterOhiohealth Southeastern Medical Center05-22-2024 Telephone encounter Note * Telephone [...] to the ER for evaluation. Please advise. [facility]-22-[facility] Instructions* Patient Instructions* Renetta Mcgee APRN.CNP - [...] glucose does not improve. documented in this encounterOhiohealth Southeastern Medical Center05-22-2024 History of Present illness Narrative* Renetta Mcgee [...] by mouth one time a week. Insulin Joliet, Disposable, (BD ULTRA-FINE FADY PEN NEEDLE) 32 [...] A1C Renetta Mcgee CNP documented in this encounterOhiohealth Southeastern Medical Center05-20-2024 Telephone encounter Note * Telephone Encounter - Patricia Mora LPN - 12/05/2023 12:12 PM EDT PATIENT NOTIFIED OF SAME. [facility]-20[facility] Miscellaneous Notes* Telephone Encounter - [...] advise, Pattie Giles RN documented in this encounterOhiohealth Southeastern Medical Center05-20-2024 Telephone encounter Note * Telephone Encounter - Patricia Mora LPN - 12/05/2023 12:08 PM EDT PATIENT NOTIFIED OF SAME. [facility]-20-[facility] Miscellaneous Notes* Telephone Encounter - [...] advise. Rakel Agosto LPN documented in this encounterOhiohealth Southeastern Medical Center05-20-2024 Telephone encounter Note * Telephone Encounter - Davon Wolfe APRN.CNP - 12/05/2023 12:01 PM EDT It would be alright to get her hair done if getting it done does not cause her to have symptoms such as dizziness, lightheadedness, vision changes, etc. [facility] Telephone encounter Note* Telephone Encounter [...] Please review and advise. Rakel Agosto LPN [facility]-17-2024 Telephone encounter Note* Telephone Encounter [...] to add prior to appointment with endocrinology. [facility] Telephone encounter Note* Telephone Encounter [...] Please review and advise, Pattie Giles RN [facility]05-06-2024 Telephone encounter Note* Telephone Encounter - Patricia Mora LPN - 11/21/2023 2:47 PM EDT PATIENT NOTIFIED OF SAME. [facility]-06[facility] Miscellaneous Notes* Telephone Encounter - [...] her it could be from a different local delivery driver, she said the pharmacy told her the [...] She has eye appt at 920 am [facility], will not be able to reached. She has been taking Lantus 24 units at bedtime. Patient is asking what should she be taking in place of the Novolog? She said she is so nervous about this, has got diarrhea worrying about it. Please advise documented in this encounterOhiohealth Southeastern Medical Center05-06-2024 Telephone encounter Note * Telephone Encounter - Davon Wolfe APRN.FABIO - 11/21/2023 2:17 PM EDT Okay to [...] drop her sugars like the novolog does. [facility]-06-[facility] Telephone encounter Note* Telephone Encounter [...] continue with weekly dose of daily dose? [facility] Telephone encounter Note* Telephone Encounter - Davon Wolfe APRN.CNP - 11/21/2023 1:07 PM EDT Please see if she would be willing to stop the NPH insulin and use the sliding scale as ordered forthe novolog. We could also further adjust the lantus. I think she would tolerate doing 26 units of the Lantus if she is going without the NPH insulin. [facility] Telephone encounter Note* Telephone Encounter [...] her it could be from a different local delivery driver, she said the pharmacy told her the [...] Please call and advise. Parris Eckert RN [facility]05-06-2024 Telephone encounter Note* Telephone Encounter - Davon Wolfe APRN.CNP - 11/21/2023 10:26 AM EDT Please see how often she is taking the Novolog and how many units when using it? We could stop the novolog and adjust the other insulins if she is not using much of it. [facility] Telephone encounter Note* Telephone Encounter [...] She has eye appt at 920 am [facility], will not be able to reached. She has been taking Lantus 24 units at bedtime. Patient is asking what should she be taking in place of the Novolog? She said she is so nervous about this, has got diarrhea worrying about it. Please advise [facility] Telephone encounter Note* Telephone Encounter - Patricia Mora LPN - 11/11/2023 2:24 PM EDT PATIENT NOTIFIED OF SAME and expressed understanding. [facility] Miscellaneous Notes* Telephone Encounter - [...] 173 bedtime took 20 units Lantus Thurs 25: 5 am 228 took 20 units Novolin [...] needs to change anything. documented in this encounterOhiohealth Southeastern Medical Center04-26-2024 Telephone encounter Note * Telephone Encounter - Davon Wolfe APRN.CNP - 11/11/2023 1:17 PM EDT Okay, understood, she could increase the Lantus then to 26 units but reduce the lispro to 2 units and see if helpful with the symptoms. Please have her call next week with an update after a few days of doing that. [facility]04-26-2024 Telephone encounter Note* Telephone Encounter [...] about 30 minutes. Then feels dizzy, weak. [facility]04-26-2024 Telephone encounter Note* Telephone Encounter - Davon Wolfe APRN.CNP - 11/11/2023 10:38 AM EDT Please return her call and let her know that based on the am sugars we could adjust the Lantus to 22 units as this will help with the am readings to get them closer to 120. [facility]04-26-2024 Telephone encounter Note* Telephone Encounter [...] patient if she needs to change anything. [facility]04-26-2024 Telephone encounter Note* Telephone Encounter - Davon Wolfe APRN.CNP - 11/11/2023 8:18 AM EDT Seen 11/08 [facility]04-26-2024 Miscellaneous Notes* Telephone Encounter - Davon Wolfe APRN.CNP - 11/11/2023 8:18 AM EDT Seen 11/08 * Telephone Encounter - Madeline Quintana LPN - 11/04/2023 4:23 PM EDT Images from the original note were not included. Patient dropped off documented in this encounterOhiohealth [facility]heastern [facility] Center04-25-2024 Telephone encounter Note * Telephone Encounter - Lydia Grande APRN.CNS - 11/10/2023 7:13 AM EDT Noted [facility]04-25-2024 Miscellaneous Notes* Telephone Encounter - [...] back and speak with triage nurse. Anika Hima Shirlene LONG * Telephone Encounter - Lydia Grande APRN.MADELIN [...] recommendation. Rochelle Hoyt RN documented in this encounterOhiohealth Southeastern Medical Center04-24-2024 Instructions* Patient Instructions* Davon Wolfe APRN.LOCKER ATTENDANT - 11/09/2023 3:28 PM EDT The pen is the long acting insulin, this impacts the morning fasting sugar the most. The Novolog is the very quick, short acting insulin. You need to eat with in 30 minuets of that one. documented in this encounterOhiohealth Southeastern Medical Center04-24-2024 History of Present illness Narrative* [...] She has been in the ER at [facility] a few times in the last few [...] (Patient not taking: Reported on 11/09/2023) Insulin Joliet, Disposable, (BD ULTRA-FINE FADY PEN NEEDLE) 32 [...] Major Depressive Disorder, Recurrent, in Full Remission ([facility]) - 06/25/2023 Palpitations - 05/16/2023 Chronic Obstructive Asthma With Exacerbation ([facility]) ([facility]) - 11/12/2022 Acute Respiratory Failure With Hypoxia ([facility]) - 11/12/2022 Paroxysmal Svt (Supraventricular Tachycardia) ([facility]) - 11/12/2022 Adverse Reaction to Hmg-Coa Reductase Inhibitor - 06/07/2022 Comment: Historical: see allergies Stasis Edema of Both Lower Extremities - 04/27/2018 Morbid Obesity With Bmi of 45.0-49.9, Adult ([facility]) - 04/18/2017 Asthma - 05/06/2014 Vitamin D Deficiency - 08/21/2010 Charcot Foot Due to Diabetes Mellitus ([facility]) Debility - 09/30/2009 Rosacea - 09/06/2007 Insomnia, Unspecified - 06/01/2007 Type I Diabetes Mellitus With Manifestations ([facility]) - 09/15/2005 Essential Hypertension - 09/15/2005 Arthropathy [...] appointment.. Davon Wolfe APRN-FABIO documented in this encounterOhiohealth [facility] Center04-24-2024 Telephone encounter Note * Telephone [...] Wolfe per patient's request. Rochelle Hoyt RN [facility]04-24-2024 Miscellaneous Notes* Telephone Encounter - [...] request. Rochelle Hoyt RN documented in this encounterOhiohealth [facility]heastern [facility] Center04-23-2024 Telephone encounter Note * Telephone [...] with updated readings in next 2-3 days.. [facility]04-23-2024 Telephone encounter Note* Telephone Encounter - Lydia Grande APRN.COMMUNITY DEVELOPMENT COORDINATOR - 11/08/2023 4:12 PM EDT See scanned document, no changes made to medications at home. She was advised to follow her sliding scale insulin orders and make an appointment with endocrinology. Did she want to make an appointment with endocrinology and if so does she need a referral? How her blood sugars today? [facility]04-23-2024 Telephone encounter Note* Telephone Encounter - Rakel Agosto LPN - 11/08/2023 11:43 AM EDT Pt calls to report she ended up going to ER yesterday and got sugar under control. Rakel Agosto LPN T [facility]04-23-2024 Telephone encounter Note* Telephone Encounter - Madeline Quintana LPN - 11/08/2023 8:56 AM EDT Records printed for provider to review. Madeline Quintana LPN [facility]04-22-2024 Telephone encounter Note* Telephone Encounter - Anika Garber LPN - 11/07/2023 3:44 PM EDT left message for patient to call office back and speak with triage nurse. Anika Garber LPN T [facility] Work Phone: 1(386) 728-994204-22-2024 Telephone encounter Note* Telephone Encounter - Lydia [...] diabetes. Recommend avoid excess intake of carbohydrates. [facility]04-22-2024 Telephone encounter Note* Telephone Encounter [...] asking for PCP recommendation. Rochelle Hoyt RN [facility]04-19-2024 Telephone encounter Note* Telephone Encounter - Madeline Quintana LPN - 11/04/2023 4:23 PM EDT Images from the original note were not included. Patient dropped off [facility]04-15-2024 NoteHNO ID: [id number] Author: HEATHER DE ANDA RT(Lillian) Service: ? Author Type: Technologist Type: Progress [...] PATIENT PRESENTS WITH AN IMPLANTABLE OR ATTACHED NATIONAL SALES CONSULTANT: No RADIOLOGY DEPARTMENT: Ultrasound PERIPHERAL IV DATA: Not applicable SIGNED BY: Heather De Anda RDMS, RVT October 31, 2023 12:57 [facility]04-15-2024 Miscellaneous Notes* Telephone Encounter - Gabi Santiago LPN - 10/31/2023 2:25 PM EDT Patient notified.Gabi Santiago LPN * Telephone Encounter - Tamika Morris MD - 10/31/2023 1:57 PM EDT Ultrasound showed no blood clot in her leg. She may resume wearing her compression hose and leg brace. Follow up if swelling or pain worsens documented in this encounterOhiohealth Southeastern Medical Center04-15-2024 History of Present illness Narrative* [...] PATIENT PRESENTS WITH AN IMPLANTABLE OR ATTACHED NATIONAL SALES CONSULTANT: No RADIOLOGY DEPARTMENT: Ultrasound PERIPHERAL IV DATA: Not applicable SIGNED BY: Heather De Anda RDMS, RVT October 31, 2023 12:57 PM documented in this encounterOhiohealth Southeastern [facility] Center04-15-2024 History of Present illness Narrative* Tamika Morris MD - 10/31/2023 8:24 AM EDT Patient presents with: concerened about right lower leg clot: X 1 day HPI: PMHx significant for left leg DVT in 2015 after right leg fracture. She noticed some [...] by mouth one time a week. Insulin Joliet, Disposable, (BD ULTRA-FINE FADY PEN NEEDLE) 32 [...] and CBC in August (more recently at [facility] ED). Tamika Morris MD documented in this encounterOhiohealth [facility]heastern Medical Center04-12-2024 Discharge summary Author Tierney Francis [facility] October 28, 2023 9:20pm Note Date/Time October 28, 2023 7:1 6pm [facility] Medical Records Department [address] [place] [address] Emergency Department Summary 10/28/23 MR#: [id number] Acct: [id number] Name: ATTILA KIDD Rep #:[id number] : 1945 78 From: Tierney Francis MD [...] palpitations when her blood sugars are high. [facility] Medical History Abnormal EKG Asthma Bimalleolar [...] tablet,delayed release 81 mg PO DAILY heart [facility] 11/24/17 [History Last Taken 01/19/19 16:00] ramipril [...] amiodarone Allergy Intermediate Swelling Verified 10/28/23 18:51 [place] And Derivatives Allergy Intermediate Hives Verified 10/28/23 [...] 18:51 [From Airborne (ascorbate sodium)] hydrocodone [From [place]] Allergy Mild dystonia Verified 10/28/23 18:51 lysine [...] 18:51 hydrochlorothiazide Allergy Other Verified 10/28/23 18:51 Fkfmjde-WBK-JfN Reductase AdvReac Severe myalgias Verified 10/28/23 18:51 Inhibitor [Txttfxb-Tmm-Wfy Reductase Inhibitor] amoxicillin [From Augmentin] AdvReac Other [...] Medical decision making narrative: Patient placed on equipment monitor phototypesetting. EKG obtained to evaluate for cardiac arrhythmia/ischemia. [...] 73.4 H Lymph % (Auto) 14.4 L [place] % (Auto) 6.2 Eos % (Auto) 5.4 [...] your Primary Care Provider. Call [facility] ([phone]) or report to the closest Emergency Room. Call 911 if necessary. 10/28/232119 <Electronically signed by Tierney Francis MD> Cosigner Signature (if applicable): CC: Dr. Octavio Reza MD ~ Signed [facility] Work Phone: 1(743) 625-404704-08-2024 Miscellaneous Notes* Telephone Encounter - Parris Eckert [...] for PCP to review. documented in this encounterOhiohealth Southeastern Medical Center04-01-2024 Miscellaneous Notes* Telephone Encounter - [...] AM before breakfast?). * Telephone Encounter - Cammy Moreno RN - 10/14/2023 9:38 AM EDT [...] advise patient and phone patient with reply: [phone]. documented in this encounterOhiohealth Southeastern Medical Center03-18-2024 Miscellaneous Notes* Telephone Encounter - [...] calls to report he took pt to [facility] ER 09/30 for URI sx. reports pt [...] pt. Rakel Agosto LPN documented in this encounterOhiohealth Southeastern Medical Center03-16-2024 Discharge summary Author Mark Leong [facility] October 01, 2023 4:29pm Note Date/Time October 01, 2023 2:5 2pm [facility] Medical Records Department [address] [facility] [place] [address] Emergency Department Summary 10/01/23 MR#: [id number] Acct: [id number] Name: ATTILA KIDD Rep #:[id number] : 1945 78 From: Mark Leong MD PCP: Dr. Octavio Reza MD Status:RE [...] has required 2 L O2 at night. PFSH <ALEN Diamond - Last Filed: 10/01/23 16:26> [facility] Medical History Abnormal EKG Asthma Bimalleolar ankle [...] tablet,delayed release 81 mg PO DAILY heart [facility] 11/24/17 [History Last Taken 01/19/19 16:00] ramipril [...] amiodarone Allergy Intermediate Swelling Verified 10/01/23 14:33 Han[place] And Derivatives Allergy Intermediate Hives Verified 10/01/23 14:33 morphine Allergy Intermediate confusion Verified 10/01/23 14:33 moxifloxacin Allergy Intermediate Shortness Verified 10/01/23 14:33 of breath nabumetone Allergy Intermediate damaged Verified 10/01/23 14:33 kidney penicillin G Allergy Intermediate TURNS BLUE Verified 10/01/23 14:33 propoxyphene Allergy Intermediate PT UNSURE Verified 10/01/23 14:33 OF REACTION acetaminophen [From [place]] Allergy Mild dystonia Verified 10/01/23 14:33 amlodipine Allergy Mild Abd Verified 10/01/23 14:33 cramps/diarrhea ascorbic acid Allergy Mild Itching Verified 10/01/23 14:33 [From Airborne (ascorbate sodium)] desloratadine Allergy Mild headache Verified 10/01/23 14:33 glutamine Allergy Mild Itching Verified 10/01/23 14:33 [From Airborne (ascorbate sodium)] herbal complex no.124 Allergy Mild Itching Verified 10/01/23 14:33 [From Airborne (ascorbate sodium)] hydrocodone [From [place]] Allergy Mild dystonia Verified 10/01/23 14:33 lysine [...] 14:33 hydrochlorothiazide Allergy Other Verified 10/01/23 14:33 Woenmir-ITJ-WhL Reductase AdvReac Severe myalgias Verified 10/01/23 14:33 Inhibitor [Osywkcm-Iru-Uyj Reductase Inhibitor] amoxicillin [From Augmentin] AdvReac Other [...] Method Room Air Room Air <Dr. Mark Leong MD - Last Filed: 10/01/23 16:29> Physical [...] 81.4 H Lymph % (Auto) 9.3 L [place] % (Auto) 7.6 Eos % (Auto) 1.2 [...] Signed: Thomas Cardenas MD at 15:58 EDT Reading Location ID and State: [facility] / [place] Tel , Service support , ED attending interpretation of 2-view chest x-ray shows normal heart size, no acute infiltrate, edema, or effusion. EKG Initial EKG: Attestation: I personally reviewed and interpreted this EKG as follows: Interpretation: Sinus Rhythm and No Acute Injury Pattern Comments: Normal sinus rhythm with sinus arrhythmia at 67 bpm Normal intervals, no acute ischemic changes <Dr. Mark Leong MD - Last Filed: 10/01/23 16:29> [facility] MDM Narrative Medical decision making narrative: I [...] 81.4 H Lymph % (Auto) 9.3 L [place] % (Auto) 7.6 Eos % (Auto) 1.2 [...] Signed: Thomas Cardenas MD at 15:58 EDT Reading Location ID and State: [facility] / [place] Tel , Service support , Discharge Plan Triage Chief Complaint: Shortness of Breath ED Midlevel Provider: Amber Martino ED Provider: Mark Leong Dx/Rx/DC Orders Clinical Impression: Acute URI, Essential [...] upper respiratory infection. Use nasal saline and sjot-rjz-akhkixp congestion medication as needed. Follow-up with your doctor. If symptoms worsen return to ER. What to do if you have Problems For any increased pain, shortness of breath, bleeding, nausea or vomiting, chestpain, or any unexpected problems, contact your Primary Care Provider. Call [facility] ([phone]) or report to the closest Emergency Room. Call 911 if necessary. 10/01/231628 <Electronically signed by Mark Leong MD> Cosigner Signature (if applicable): 10/01/231625 <Electronically signed by Amber LOWRY> CC: Dr. Octavio Reza MD ~ Signed [facility] Work Phone: 1(184) 892-658203-14-2024 Miscellaneous Notes* Telephone Encounter - Pattie Giles RN - 09/29/2023 2:53 PM EDT Patient calls to request an updated medication list be sent to [facility]. Faxed to [phone] per request. Pattie Giles RN documented in this encounterOhiohealth Southeastern Medical Center03-11-2024 Miscellaneous Notes* Telephone Encounter - Vibha Peña LPN - 09/26/2023 3:12 PM EDT Called the pharmacy and they gave a number of [phone]. Number called and PA approved from 09/26/23 to 09/25/24. PA approval number is [id number]. Pharmacy notified. Pt notified. * Telephone Encounter - Cesar Brush LPN - 09/26/2023 8:45 AM EDT PRIOR AUTHORIZATION Medication for Prior Authorization: glucose test strips testing 8 times daily Other formulary meds available : NO Insurance Company: [employer] phone number: [phone] Patient insurance ID number: [id number] Cesar Brush LPN Patient testing 8 times daily, blood sugars changing frequently, she takes 3 types insulin daily, Novolog at meals, NPH at breakfast and Glargine at bedtime. documented in this encounterOhiohealth [facility]heastern Medical Center03-08-2024 Miscellaneous Notes* Telephone Encounter - [...] you. Parris Eckert RN. documented in this encounterOhiohealth Southeastern Medical Center03-07-2024 History of Present illness Narrative* Christine Bianchi MD - 09/22/2023 1:15 PM EST Images from the original note were not included. . [facility] [place] Note Patient name: Attila Kidd PCP: Octavio Reza MD CC: Follow-up asthma HPI: Attila Kidd 78 year old female former 10 pack year smoker with PMH significant for HTN, HLD, GERD, DM2, THAIS non-compliant with BiPAP, nocturnal oxygen use, asthma, former patient of Dr. Luu, new to [place]. History notable for influenza A infection in [...] 0.48 Low Monocytes % % 6.3 Abs [place] <0.87 k/uL 0.46 Eosinophils % % 3.6 Abs Eosin <0.46 k/uL 0.26 Basophils % % 0.4 Abs Baso <0.11 k/uL 0.03 Immature Granulocytes % % 0.3 Abs Immature Gran <0.10 k/uL <0.03 NRBC /100 WBC 0.0 Absolute nRBC <0.01 k/uL <0.01 Diff Type Auto Imaging / Diagnostic Studies: CXR 05/2023 at [facility]: PAST MEDICAL HISTORY Diagnosis Date Adverse [...] by mouth one time a week. Insulin Joliet, Disposable, (BD ULTRA-FINE FADY PEN NEEDLE) 32 [...] will retry her BiPAP -Weight loss advised Chrsitine Bianchi MD [facility] [place] documented in this encounterOhiohealth Southeastern Medical Center03-06-2024 Instructions* Patient Instructions* Octavio Reza MD - 09/21/2023 2:07 PM EST May continue taking half pill of metoprolol twice daily and take extra half just as needed for symptomatic PACs (extra beats) or if ever have heart racing episode that does not resolve on its own. documented in this encounterOhiohealth Southeastern Medical Center03-06-2024 History of Present illness Narrative* Octavio Reza MD - 09/21/2023 1:56 PM EST This note was created using [employer]uld[employer]. Subjective Attila Kidd is a 78 year old female. Patient presents with: ED Follow-up SUBJECTIVE: Attila Kidd is a 78 year old year old lady here today for ER follow up appointment for review ofmedical conditions. Was in ER for palpitations. [place] irregular. In ER twice. 09/15--told to stay [...] by mouth one time a week. Insulin Joliet, Disposable, (BD ULTRA-FINE FADY PEN NEEDLE) 32 [...] normal. Judgment: Judgment normal. Reviewed labs from [facility] Assessment and Plan Encounter Diagnosis ICD-10-CM 1. [...] the date of the service which included kmel-yz-vpmz patient care, completing clinical documentation, obtaining and/or reviewing separately obtained history, performing a medically appropriate examination, counseling and educating the patient/family/caregiver, ordering medications, tests, or procedures, independently interpreting results (not separately reported), and communicating results to the patient/family/caregiver. Octavio Reza MD documented in this encounterFrances [place]ille [address]-06-2024 Discharge summary Author Nik Nunez [facility] September 21, 2023 3:45am Note Date/Time September 21, 2023 12:4 4am [facility] Medical Records Department [address] [place] [address] Emergency Department Summary 09/21/23 MR#: [id number] Acct: [id number] Name: ATTILA KIDD Rep #:[id number] : 1945 78 From: Nik Nunez MD [...] having some prickling chest discomfort without radiation. [place] similar to prior episodes ofSVT. She states [...] getting here to the hospital. Currently asymptomatic. [facility] Medical History Abnormal EKG Asthma Bimalleolar [...] amiodarone Allergy Intermediate Swelling Verified 09/16/23 17:54 Han[place] And Derivatives Allergy Intermediate Hives Verified 09/16/23 17:54 morphine Allergy Intermediate confusion Verified 09/16/23 17:54 moxifloxacin Allergy Intermediate Shortness Verified 09/16/23 17:54 of breath nabumetone Allergy Intermediate damaged Verified 09/16/23 17:54 kidney penicillin G Allergy Intermediate TURNS BLUE Verified 09/16/23 17:54 propoxyphene Allergy Intermediate PT UNSURE Verified 09/16/23 17:54 OF REACTION acetaminophen [From [place]] Allergy Mild dystonia Verified 09/16/23 17:54 amlodipine Allergy Mild Abd Verified 09/16/23 17:54 cramps/diarrhea ascorbic acid Allergy Mild Itching Verified 09/16/23 17:54 [From Airborne (ascorbate sodium)] desloratadine Allergy Mild headache Verified 09/16/23 17:54 glutamine Allergy Mild Itching Verified 09/16/23 17:54 [From Airborne (ascorbate sodium)] herbal complex no.124 Allergy Mild Itching Verified 09/16/23 17:54 [From Airborne (ascorbate sodium)] hydrocodone [From [place]] Allergy Mild dystonia Verified 09/16/23 17:54 lysine [...] 17:54 hydrochlorothiazide Allergy Other Verified 09/16/23 17:54 Esobmec-RTY-ElC Reductase AdvReac Severe myalgias Verified 09/16/23 17:54 Inhibitor [Ubgoncs-Vwg-Ltp Reductase Inhibitor] amoxicillin [From Augmentin] AdvReac Other [...] used to see Dr. Lott with the [facility], but then she was referred [...] (Auto) 67.5 Lymph % (Auto) 17.9 L [place] % (Auto) 8.3 Eos % (Auto) 5.8 [...] Signed: Mohsen Izquierdo MD at 1:01 EST Reading Location ID and State: [facility] / [place] Tel , Service support , Rhythm Strip Rhythm Strip: Sinus Rhythm [...] - Areli Estevez PA [Med Staff - [facility] Practice Prof] - As soon as possible Disposition Disposition: Home, Self Care What to do if you have Problems For any increased pain, shortness of breath, bleeding, nausea or vomiting, chestpain, or any unexpected problems, contact your Primary Care Provider. Call [facility] ([phone]) or report to the closest Emergency Room. Call 911 if necessary. 09/21/23 0345 <Electronically signed by Nik Nunez MD> Cosigner Signature (if applicable): CC: Dr. Octavio Reza MD ~ Signed [facility] Work Phone: 1(175) 494-182102-19-2024 Miscellaneous Notes* Telephone Encounter - Cesar Brush LPN - 09/05/2023 2:19 PM EST Patient returned call and went over results, notes from yLdia Grande FOLDER MACHINE ADJUSTER with understanding,. After going over questions with Sed rate and CRP being elevated. Patient wants to stay locally to see Supervisor Color Paste Mixing since she is in wheel chair and [...] If she would like to see a resident in diagnostic radiology I can place a consult. Schedule if [...] Lymph 1.00 - 4.00 k/uL 0.48 (L) [place]% % 6.3 Abs [place] <0.87 k/uL 0.46 Eosin% % 3.6 Abs [...] when able. Thank you. documented in this encounterOhiohealth Southeastern Medical Center02-15-2024 History of Present illness Narrative* [...] Alleviate: advil seemed to help Aggravate: no Nvwr-xjf-gchyvlg: Prior occurrence: no Review of Systems Respiratory: Negative. Musculoskeletal: Positive for arthralgias. Objective BP 144/74 Pulse 64 Resp 16 Wt (!) 156.5 kg (345 lb) SpO2 96% BMI 50.95 kg/m Physical Exam Vitals and nursing note reviewed. Constitutional: Appearance: Normal appearance. HENT: Head: Normocephalic and atraumatic. Mouth/Throat: Lips: [place]. Mouth: Mucous membranes are moist. Eyes: Conjunctiva/sclera: [...] by mouth one time a week. Insulin Joliet, Disposable, (BD ULTRA-FINE FADY PEN NEEDLE) 32 [...] Level: 4 - Moderate documented in this encounterOhiohealth Southeastern Medical Center12-07-2023 History of Present illness Narrative* Mayra, Tierney M, PA-C - 06/23/2023 9:00 AM EST Images [...] that time patient has been admitted to [facility] on two occasions. The first being [...] (Patient not taking: Reported on 05/23/2023) Insulin Joliet, Disposable, (BD ULTRA-FINE FADY PEN NEEDLE) 32 [...] 04/18/2017 56.0 (A) PFT, 06/23/2023 CXR, 05/28/2023 [facility] FINDINGS: The lungs are clear and [...] necessary. Tierney Nunez PA-C documented in this encounterOhiohealth Southeastern Medical Center11-28-2023 Miscellaneous Notes* Telephone Encounter - [...] problem. Gloria Rand RN. documented in this encounterOhiohealth Southeastern Medical Center11-06-2023 Instructions* Patient Instructions* Octavio Reza [...] with antifungal shampoo [31,32]. documented in this encounterOhiohealth Southeastern Medical Center11-06-2023 History of Present illness Narrative* Octavio Reza MD - 05/23/2023 2:20 PM EST This note was created using Results United[employer]. Subjective Attila Kidd is a 77 year old female. Patient presents with: F/U 4 month: Labs prior SUBJECTIVE: Attila Kidd is a 77 year old year old lady here today for 4 month follow up appointment for review of medical conditions. Had low sugar this AM at 69. Able to get juice. Reviewed had bad experience at [facility]. Noted saw Dr. Lees. Working on [...] times daily before meals. As directed Insulin Joliet, Disposable, (BD ULTRA-FINE FADY PEN NEEDLE) 32 [...] in adult, unspecified whether serious comorbidity present ([facility]) E66.01 Z68.42 Continue efforts at healthier [...] the date of the service which included ivob-dg-wngn patient care, completing clinical documentation, obtaining and/or reviewing separately obtained history, performing a medically appropriate examination, counseling and educating the patient/family/caregiver, ordering medications, tests, or procedures, independently interpreting results (not separately reported), and communicating results to the patient/family/caregiver. Octavio Reza MD documented in this encounterOhiohealth Southeastern Medical Center10-30-2023 History of Present illness Narrative* Anant Lees MD - 05/16/2023 9:54 AM EDT Images from the original note were not included. Anant Lees MD Interventional Cardiology [address] [place] [address] Chief Complaint Patient presents with: New Patient: [...] time a week. 12 capsule 4 Insulin Joliet, Disposable, (BD ULTRA-FINE FADY PEN NEEDLE) 32 [...] to correct any errors. documented in this encounterOhiohealth Southeastern [facility] Misc[facility] Notes* Telephone Encounter - [...] and advise. Himanshu Bolden documented in this encounterOhiohealth Southeastern Medical Center08-07-2023 Miscellaneous Notes* Telephone Encounter - Cesar Brush LPN - 02/21/2023 1:42 PM EDT Printed order and faxed to [facility] as requested. Phoned patient and aware order was faxed as requested. * Telephone Encounter - Octavio Reza MD - 02/21/2023 1:08 PM EDT Filed order Fax order as requested * Telephone Encounter - Cesar Brush LPN - 02/21/2023 11:01 AM EDT Patient calling she had received her reminder from [facility] that she will need new order for 3 D mamm faxed to [phone]. Pending order to file. Please call patient when order has been faxed so she canschedule her appt at [facility]. Please advise documented in this encounterOhiohealth Southeastern Medical Center07-03-2023 Instructions* Patient Instructions* Octavio Reza [...] just once a week. documented in this encounterOhiohealth Southeastern Medical Center07-03-2023 History of Present illness Narrative* Octavio Reza MD - 01/17/2023 1:40 PM EDT This note was created using Results Unitedter. Subjective Attila Kidd is a 77 year [...] past. Noted had a terrible time with [facility] in the hospital. Was bad. Ended [...] by mouth once daily as needed. Insulin Joliet, Disposable, (BD ULTRA-FINE FADY PEN NEEDLE) 32 [...] which included preparing to see the patient, ktvu-qh-uxqi patient care, completing clinical documentation, obtaining and/or reviewing separately obtained history, performing a medically appropriate examination, counseling and educating the pat ient/family/caregiver, ordering medications, tests, or procedures, independently interpreting results (not separately reported), and communicating results to the patient/family/caregiver. Octavio Reza MD documented in this encounterOhiohealth Southeastern Medical Center03-21-2023 History of Present illness Narrative* Davon Wolfe APRN.LOCKER ATTENDANT - 10/05/2022 1:06 PM EDT SUBJECTIVE Attila [...] a sore to her vaginal area. Saw housing quality standard inspector in the past for this, Trudy Verma. Amoxicillin and hot compresses cleared this up in the past. Onset this time was about a week ago. Started with a painful hard lump to the outside skin of the vaginal area. Tried Keflex from housing quality standard inspector due to concerns of medicaiton interactions with [...] by mouth once daily as needed. Insulin Joliet, Disposable, (BD ULTRA-FINE FADY PEN NEEDLE) 32 [...] Obesity With Bmi of 45.0-49.9, Adult ([facility]) - 04/18/2017 Asthma - 05/06/2014 Vitamin D Deficiency - 08/21/2010 Charcot Foot Due to Diabetes Mellitus ([facility]) Debility - 09/30/2009 Rosacea - 09/06/2007 Insomnia, Unspecified - 06/01/2007 Type I Diabetes Mellitus With Manifestations ([facility]) - 09/15/2005 Essential Hypertension - 09/15/2005 Arthropathy [...] nursing note reviewed. Exam conducted with a molder machine present ( present in the room, ok [...] which included preparing to see the patient, vxta-pj-nrlk patient care, completing clinical documentation, obtaining and/or reviewing separately obtained history, performing a medically appropriate examination, counseling and educating the pat ient/family/caregiver, ordering medications, tests, or procedures, and care coordination (not separately reported). Return if symptoms worsen or fail to improve, for Keep next scheduled appointment.. RACHEL Romero documented in this encounterOhiohealth Southeastern Medical Center03-21-2023 Miscellaneous Notes* Telephone Encounter - Davon Wolfe APRN.CNP - 10/05/2022 8:37 AM EDT Noted. We can certainly take a look and decide on what is the best next steps for her. * Telephone Encounter - Cammy Moreno RN - 10/05/2022 8:29 AM EDT Patient phoned concerned the lump on labia spread to anus. Was seen in [facility] ER on 10-01 per pcp and KNURLING MACHINE OPERATOR recommendation for lump on labia. Reports ER [...] very concerned. Scheduled same day appt with Painter Chassis. documented in this encounterOhiohealth Southeastern Medical Center03-17-2023 Miscellaneous Notes* Telephone Encounter - Cammy Moreno RN - 10/01/2022 1:15 PM EDT Phoned patient and advised to ER for larger lump in labia area and low POX and heart rate, per Dr. Reza and Mikayla Verma recommendation in staff message. Patient agreeable. [...] larger, she needs to return to her KNURLING MACHINE OPERATOR to address the lump getting largerSounds like developing worsening cellulitis and probably abscess--might need incision and drainage if there is an abscess. If she is failing outpatient treatment with oral meds, might need IV antibiotics. Forwarding to Trudy eVrma who had been following with her. documented in this encounterOhiohealth Southeastern Medical Center03-16-2023 Miscellaneous Notes* Telephone Encounter - [...] 8:09 AM EDT Patient calling Trudy Verma FOLDER MACHINE ADJUSTER had her start Cephalexin 500 mg one capsule 4 times daily on 09/27 for her valvar issue and patient said 3 hours later she was noticing her heart was lower and she was more short of breath, her SPO2 was going down. She stopped it after 3 doses. She spoke to KNURLING MACHINE OPERATOR and restarted medication yesterday and had same reaction 3 hours later. She was asking KNURLING MACHINE OPERATOR to give her Bactrim rx, Trudy said no that is not what I want you to take. She was told to notify her PCP and see whatantibiotic PCP wants to put her on. Patient uses [facility] for her pharmacy. Please advise documented in this encounterOhiohealth Southeastern Medical Center03-13-2023 Miscellaneous Notes* Telephone Encounter - [...] TRUDY VERMA Pharmacy Information Pharmacy Address Telephone [facility] [address] [place] [address] * Telephone Encounter - Trudy Verma APRN.CNP [...] Britton. Tierney Guajardo RN documented in this encounterOhiohealth Southeastern Medical Center03-07-2023 Miscellaneous Notes* Telephone Encounter - [...] - 09/15/2022 12:26 PM EST Liliana with [facility] calling to see if there is a base rate or base rate sliding scale forthe Lispro insulin and Aspart insulin . Please advise. Cayla Lynne LPN documented in this encounterOhiohealth Southeastern Medical Center02-28-2023 Miscellaneous Notes* Telephone Encounter - Destinee Sims LPN - 09/14/2022 10:02 AM EST Patient notified. Destniee Sims LPN * Telephone Encounter - Destinee Sims LPN - 09/14/2022 10:01 AM EST ----- Message from Octavio Reza MD sent at 09/14/2022 8:42 AM EST ----- CBC within normal limits documented in this encounterOhiohealth Southeastern Medical Center02-21-2023 Instructions* Patient Instructions* Octavio Reza [...] low sugar or dehydration. documented in this encounterOhiohealth Southeastern Medical Center02-21-2023 History of Present illness Narrative* Octavio Reza MD - 09/07/2022 5:20 PM EST This note was created using Yasuu. Subjective Attila Kidd is a 77 year [...] by mouth once daily as needed. Insulin Joliet, Disposable, (BD ULTRA-FINE FADY PEN NEEDLE) 32 [...] the date of the service which included nfex-eb-lqli patient care, completing clinical documentation, performing a medically appropriate examination, and counseling and educating the patient/family/caregiver. Octavio Reza MD documented in this encounterOhiohealth Southeastern Medical Center02-15-2023 Miscellaneous Notes* Telephone Encounter - Arleen Toure APRN.CNP - 09/01/2022 3:14 PM EST Noted Arleen Toure APRN.CNP * Telephone Encounter - Cesar Brush LPN - 09/01/2022 2:06 PM EST Hubert from [facility] calling discharging patient from OT today patient has met all goals. documented in this encounterOhiohealth Southeastern Medical Center02-15-2023 Miscellaneous Notes* Telephone Encounter - Parris Eckert RN - 09/01/2022 9:06 AM EST Rekha PT with [facility] called and is notified of providers message and instructions. She voices understanding. Parris Eckert RN * Telephone Encounter - Lydia Grande APRN.CNS - 08/31/2022 4:39 PM EST Ok for [facility] plan, see below * Telephone Encounter - Parris Eckert RN - 08/31/2022 9:44 AM EST Rekha PT with [facility] called in her POC. She reports she [...] is a confidential number. documented in this encounterOhiohealth Southeastern Medical Center02-04-2023 Miscellaneous Notes* Telephone Encounter - Octavio Reza MD - 08/21/2022 9:19 AM EST Noted * Telephone Encounter - Cammy Moreno RN - 08/20/2022 1:45 PM EST Hubert- OT- [facility] - reporting POC: saw patient today for OT eval, and will see patient 1 x weekfor 3 weeks. documented in this encounterOhiohealth Southeastern Medical Center01-31-2023 Instructions* Patient Instructions* Octavio Reza [...] off at night too. documented in this encounterOhiohealth Southeastern Medical Center01-31-2023 History of Present illness Narrative* Octavio Reza MD - 08/17/2022 4:24 PM EST This note was created using Results Unitedter. Subjective Attila Kidd is a 77 year old female. Patient presents with: Hospital F/U: Follow up [facility] and [facility] discharge SUBJECTIVE: Attila Kidd is a 77 year old year old lady here today for follow up appointment for review of medical conditions. Discharged from [facility] after hospitalization at [facility] twice. Noted sugars have been running high since they changed her insulin at [facility]. Current probiotic causing constipation. Prefers Symbicort since [...] by mouth once daily as needed. Insulin Joliet, Disposable, (BD ULTRA-FINE FADY PEN NEEDLE) 32 [...] the date of the service which included zfpf-qi-ecsi patient care, completing clinical documentation, obtaining and/or reviewing separately obtained history, performing a medically appropriate examination, counseling and educating the patient/family/caregiver, and ordering medications, tests, or procedures. Octavio Reza MD documented in this encounterOhiohealth Southeastern Medical Center01-16-[address] Escalera [facility] August 02, 2022 12:32pm Note Date/Time August 02, 2022 8 :59am [facility] Medical Records Department [address] [place] [address] Progress Note - Hospitalist 08/02/22 0854 MR#: [id number] Acct: [id number] Name: ATTILA KIDD Rep #:[id number] : 1945 77 From: Zay Escalera DO PCP: Dr. Octavio Reza MD Status:AD M IN Location: [place] [address] Subjective Subjective Feels well. Breathing well w [...] 79.8 H, Lymph % (Auto) 11.1 L, [place] % (Auto) 8.1, Eos % (Auto) 0.4, Baso % (Auto) 0.2, Absolute Neuts (auto)4.0, Absolute Lymphs (auto) 0.56 L, Nucleated RBC % 0.6 08/02/22 06:00: Sodium 137, Potassium 3.7, Chloride 101, Carbon Dioxide 26.0, Anion Gap 10, BUN 9, Creatinine 0.66, Estim Creat Clear Calc 49.24, Est GFR (MDRD) Af Amer 111, Est GFR (MDRD) Non-Af 92, BUN/Creatinine Ratio 13.5, Tqiiogg117 H, Calcium 8.0 L, Phosphorus 2.4 L, [...] Requested for PT OT eval and social media analyst to assist with discharge planning. To SNF 08/02/22 1232 <Electronically signed by Zay Escalera DO> Cosigner Signature (if applicable): CC: ~ Signed [facility] Work Phone: 1(658) 233-533401-15-2023 History and physical note Author Dr. Gan [facility] August 01, 2022 7:10pm Note Date/Time July 31, 2022 1 0:18pm [facility] Medical Records Department [address] [place] [address] H&P Exam - Hospitalist 07/31/229 MR#: [id number] Acct: [id number] Name: ATTILA KIDD Rep #:[id number] : 1945 77 From: Daisy Gan MD PCP: Dr. Octavio Reza MD Status:AD M IN [facility] - General General Date of [...] otherwise negative. Vitals were BP of 133/83, VA of 99, RR of 23 and she [...] to failure to thrive and COVID-19 infection. [facility] Medical History Abnormal EKG Asthma Bimalleolar ankle [...] 23:52 hydrochlorothiazide Allergy Other Verified 07/31/22 23:52 Kpneunu-QJM-SbJ Reductase AdvReac Severe myalgias Verified 07/31/22 23:52 Inhibitor [Nedzpaa-Nko-Dge Reductase Inhibitor] codeine AdvReac Nausea Verified 07/31/22 [...] 86.7 H, Lymph % (Auto) 8.7 L, [place] %(Auto) 4.4, Eos % (Auto) 0.0, Baso [...] Sl. Cloudy, Urine pH 6.0, Ur Specific Wilson 1.015, Urine Protein 15 H, Urine Glucose [...] and superimposed bacterial pneumonia * Admit to [facility]. * Patient recently tested positive for COVID [...] elects to be full code. * Total bfrl-rj-kctt time 17 minutes. Charges/Coding Visit Charges Inpatient E&M: 01009 Init Hosp L3 Procedures Hospitalists Procedures: 70311 Advncd Care Plan 30 Min 08/01/221909 <Electronically signed by Daisy Gan MD> Cosigner Signature (if applicable): CC: Dr. Octavio Reza MD; Dr. Daisy Gan MD~ Signed [facility] Work Phone: 1(183) 387-826701-15-[address] Herring [facility] August 01, 2022 10:43am Note Date/Time August 01, 2022 7 :49am [facility] Medical Records Department [address] [place] [address] Progress Note - Hospitalist 08/01/22 0745 MR#: [id number] Acct: [id number] Name: ATTILA KIDD Rep #:[id number] : 1945 77 From: Tawanda Herring MD PCP: Dr. Octavio Reza MD Status:AD M [place]A Location: [place] [address] Subjective Subjective Follow-up hypoxia Patient is a [...] 86.7 H, Lymph % (Auto) 8.7 L, [place] %(Auto) 4.4, Eos % (Auto) 0.0, Baso [...] Sl. Cloudy, Urine pH 6.0, Ur Specific Wilson 1.015, Urine Protein 15 H, Urine Glucose [...] 77.8 H, Lymph % (Auto) 15.1 L, [place] % (Auto) 6.7, Eos % (Auto) 0.0, [...] Requested for PT OT eval and social media analyst to assist with discharge planning 10. DVT prophylaxis ? Lovenox Time spent in the patient's overall evaluation,decision-making process, review of diagnostic data, adjustment of medication, review of med reconciliation, ordering of labs for the following morning, discussion with other providers, nursing nursing and ancillary staff involved in patient's care, documentation, 58 Minutes Charges/Coding Visit Charges Inpatient E&M: 72931 Subs Hosp L3 08/01/22 1043 <Electronically signed by Tawanda Herring MD> Cosigner Signature (if applicable): CC: ~ Signed [facility] Work Phone: 1(345) 936-907201-15-[address] Kessler [facility] July 31, 2022 10:41pm Note Date/Time July 31, 2022 7 :58pm [facility] Medical Records Department [address] [place] [address] Emergency Department Summary 07/31/22 MR#: [id number] Acct: [id number] Name: ATTILA KIDD Rep #:[id number] : 1945 77 From: Jesus Kessler MD PCP: Dr. Octavio Reza MD Status:AD M [place] [facility] H[facility] History of Present Illness Chief Complaint: [...] an error of one of her machines. [facility] Medical History Abnormal EKG Asthma Bimalleolar [...] 17:52 hydrochlorothiazide Allergy Other Verified 07/31/22 17:52 Blbibxl-GHN-QnL Reductase AdvReac Severe myalgias Verified 07/31/22 17:52 Inhibitor [Umzvwpi-Hel-Kma Reductase Inhibitor] codeine AdvReac Nausea Verified 07/31/22 [...] 86.7 H Lymph % (Auto) 8.7 L [place] % (Auto) 4.4 Eos % (Auto) 0.0 [...] Color Urine Clarity Urine pH Ur Specific Wilson Urine Protein Urine Glucose (UA) Urine Ketones [...] (Auto) Neut % (Auto) Lymph % (Auto) [place] % (Auto) Eos % (Auto) Baso % [...] Sl. Cloudy Urine pH 6.0 Ur Specific Wilson 1.015 Urine Protein 15 H Urine Glucose [...] diffuse nonspecific ST and T wave change. VA interval, QRS duration and QTc are normal. [...] Provider] - Disposition Disposition: Acute Care Hospital [facility] What to do if you have Problems For any increased pain, shortness of breath, bleeding, nausea or vomiting, chestpain, or any unexpected problems, contact your Primary Care Provider. Call [facility] ([phone]) or report to the closest Emergency Room. Call 911 if necessary. 07/31/222240 <Electronically signed by Jesus Kessler MD> Cosigner Signature (if applicable): CC: Dr. Octavio Reza MD ~ Signed [facility] Work Phone: [phone]) 528-396301-13-2023 Miscellaneous Notes* Telephone Encounter - Davon Wolfe APRN.CNP - 2022 11:30 AM EST Noted, agree * Telephone Encounter - Asmita Tapia RN - 2022 11:15 AM EST Charisse, a nurse with [facility] calling to update Dr. Reza that pt's called and notified [facility] that he was to give pt 2 [...] lunch. was advised to call [facility] for any further concerns. No call back needed, if PCP agreeable with instructions given to pt's . Thank you. documented in this encounterOhiohealth Southeastern Medical Center01-12-2023 Miscellaneous Notes* Telephone Encounter - Lydia Grande APRN.CNS - 07/29/2022 3:05 PM EST noted * Telephone Encounter - Darlene Mena RN - 07/29/2022 1:10 PM EST Bonnie VALENCIA from [facility] calls and states that patient requested only a one time visit. They worked on homesafety and equipment recommendations. Patient is overwhelmed currently and told Bonnie that if patient thinks she needs Bonnie again in a couple of weeks she will give her a call. Darlene Mena RN documented in this encounterOhiohealth Southeastern Medical Center01-12-2023 Miscellaneous Notes* Telephone Encounter - MAURICIO Azevedo - 07/29/2022 8:41 AM EST This Sw sent message back to TAMARA 07/26/22 note, in regards to SW order. [facility] has their own SW that makes home visits. This Sw believes that [facility] was looking for order for their own Sw to go and see patient. This SW does not provide home visits. documented in this encounterOhiohealth Southeastern Medical Center01-11-2023 Miscellaneous Notes* Addendum Note - [...] message: Marilyn YING calling from [facility] to report plan of care for patient and Correction will visit patient 3 times a week for first week, 2 times a week for 2 weeks and 1 time a week for 3 weeks. shelter will work with patient on diabetes education and food education. Marilyn states that patient only takes medications when she wants to take medications. Patients blood sugars was in 400's on Tuesday, Tuesday 300's, and this morning 250. Patient is currently taking insulins they way she is supposed to to be taking them. Marilyn has been calling before each meal. [facility] faxed over updated medication list as [...] work with PharmD through [facility] instead of traffic personnel supervisor. How are her sugars running? 3) Can reschedule follow up * Telephone Encounter - Cayla Lynne LPN - 07/27/2022 2:36 PM EST Renu calling back to check status on message below. Cayla Lynne LPN * Telephone Encounter - Asmita Tapia RN - 07/26/2022 3:12 PM EST Renu, a [facility] nurse calling Dr. Reza with a couple [...] she did not see eye-to-eye with past traffic personnel supervisor. Lastly, during this call, this nurse noted pt was to have appt with PCP today but pt states she wasnot told about this appt. Please advise Renu at [phone]. Thank you. documented in this encounterOhiohealth Southeastern Medical Center01-11-2023 Miscellaneous Notes* Telephone Encounter - Cesar Brush LPN - 07/28/2022 8:08 AM EST Patient has [...] you. Cesar Brush LPN documented in this encounterOhiohealth Southeastern Medical Center01-09-2023 Miscellaneous Notes* Telephone Encounter - Lydia Grande APRN.COMMUNITY DEVELOPMENT COORDINATOR - 07/26/2022 4:00 PM EST Noted, agree * Telephone Encounter - Darlene Mena RN - 07/26/2022 1:55 PM EST David PT calling from [facility] to report plan of care for patient and physical therapy will visit patient 2 times a week for 3 weeks. Physical therapy will work with patient on functional mobility training. No Call back needed if agreeable, Darlene Mena RN documented in this encounterOhiohealth Southeastern Medical Center01-02-2023 Miscellaneous Notes* Telephone Encounter - Octavio Reza MD - 07/19/2022 7:37 PM EST Below noted Patient was readmitted 07/18/22 Cannot find H&P on Care Everywhere, but looks like had worsened hypoxemia (though blood gas showed O2 sat 94%) and hypokalemia 3.0. Plan for follow up after discharge. * Telephone Encounter - Cammy Moreno RN - 07/16/2022 8:51 AM EST [...] she gets plenty of liquids. Urine is hvac r tech now. Does have a moist cough, but improved since hospital stay. No fever. BS this morning 229, which is much improved since hospital (BS ran 400's). Patient reports her fingers have been cold when taking POX reading, and will make surethey are warm before checking POX. Also has pink fingernail maori on, and will remove from one finger [...] been? Please advise patient. documented in this encounterOhiohealth Southeastern Medical Center12-30-2022 Miscellaneous Notes* Telephone Encounter - Daina Kaye RN - 07/16/2022 7:15 PM EST Reason for Call: elevated blood sugar of 304, disoriented, sob, 02 sat is 86-89% while using oxygen Outcome: Pt and her both advised to call 911 now. They both agree. Reason for Disposition Acting confused (e.g., disoriented, slurred speech) Protocols used: Diabetes - High Blood Fyrlr-WPFVU-SH Pt reports her blood sugar was elevated [...] to call 911 now. documented in this encounterOhiohealth Southeastern Medical Center12-05-2022 Miscellaneous Notes* Telephone Encounter - [...] notify patient. Payton Soliman documented in this encounterOhiohealth Southeastern Medical Center11-21-2022 History of Present illness Narrative* Vladimir Kitchen [...] Vladimir Kitchen Associated attestation - Narendra Nolasco [facility] - 06/07/2022 3:49 PM EST [...] PharmD, MEd, BCPS, CDCES documented in this encounterOhiohealth Southeastern Medical Center11-21-2022 Miscellaneous Notes* Telephone Encounter - Lydia Grande APRN.MADELIN - 06/07/2022 1:20 PM EST Noted, agree. [...] questions/concerns. Pattie Giles RN documented in this encounterOhiohealth Southeastern Medical Center11-01-2022 Miscellaneous Notes* Telephone Encounter - Octavio Reza MD - 05/18/2022 9:56 AM EDT Ordered during appointment * Telephone Encounter - Parris Eckert RN - 05/14/2022 3:02 PM EDT Pt has an appointment with provider on 05/18/22. Pt is asking if provider wanted labs ordered. Please call Pt once labs are placed. documented in this encounterOhiohealth Southeastern Medical Center11-01-2022 History of Present illness Narrative* Octavio Reza MD - 05/18/2022 9:50 AM EDT This note was created using [employer] Cauldron[employer]. Subjective Attila Kidd is a 76 year [...] Swelling overall controlled Follows with Dr. Marin (linen attendant) every 2 months. Has HCDPOA and [...] 1 capsule by mouth twice daily. Insulin Joliet, Disposable, (BD ULTRA-FINE FADY PEN NEEDLE) 32 [...] 65+ Octavio Reza MD documented in this encounterOhiohealth Southeastern Medical Center09-17-2022 Miscellaneous Notes* Telephone Encounter - Pattie Giles RN - 04/03/2022 12:00 PM EDT See previous TE with same request for vials. Awaiting insurance authorization to dispense. Pattie Giles RN * Telephone Encounter - Rehana Beck Pss - 04/03/2022 11:52 AM EDT Patient call sent from [facility] as a refill, but when speaking with patient she said her late night shots with Humalin are a nightmare and would like to go back on vials. Please address this with patient.Call sent to triage nurse after speaking with patient. documented in this encounterOhiohealth Southeastern Medical Center09-17-2022 Miscellaneous Notes* Telephone Encounter - Latrell Medina RN - 04/03/2022 11:44 AM EDT Pt calling with request for a prescription for Humalog Vials. Patient denies any new or worsening symptoms of which a provider is not aware: Yes. Conference pt to Dr. Reza's office for mechanic's assistant with prescription. documented in this encounterOhiohealth Southeastern Medical Center09-14-2022 Miscellaneous Notes* Telephone Encounter - [...] REZA MD * Telephone Encounter - Parris Ekcert RN - 03/31/2022 1:54 PM EDT [facility] called in and reports that [...] you. Asmita Tapia RN documented in this encounterOhiohealth Southeastern [facility]* Patient Instructions* Lydia Grande APRN.CNS - 02/15/2022 3:06 PM EDT Decrease caffeine intake. Drink plenty of fluids. Think about the CGM - continuous glucose monitor. documented in this encounterOhiohealth [facility] Center08-01-2022 History of Present illness Narrative* [...] Both Lower Extremities She was seen at [facility] emergency department on February 11, 2022 [...] to follow-up with PCP as needed. Sees [facility] provider, Areli Estevez. HTN: She [...] HENT: Head: Normocephalic and atraumatic. Mouth/Throat: Lips: [place]. Mouth: Mucous membranes are moist. Eyes: Conjunctiva/sclera: [...] DM Code E10.8, E11.610 Insulin: Yes Insulin Jol[place], Disposable, (BD ULTRA-FINE FADY PEN NEEDLE) 32 [...] CGM - continuous glucose monitor. Lydia Grande APRN.CNS documented in this encounterOhiohealth Southeastern [facility] Center07-28-2022 Miscellaneous Notes* Telephone Encounter - Octavio Reza MD - 02/11/2022 1:55 PM EDT Noted Reasonable for her to have her extruder operator multiple decide on plan of care for noted [...] to go to ER for evaluation. Patient catherine was going to call [facility] office, Dr Lott before she would go to the ER. documented in this encounterOhiohealth Southeastern Medical Center07-07-2022 Miscellaneous Notes* Telephone Encounter - Ritika Lopez LPN - 01/21/2022 4:12 PM EDT Order faxed to [facility] scheduling. * Telephone Encounter - Lydia Grande APRN.CNS - 01/21/2022 4:06 PM EDT ok * Telephone Encounter - Darlene Mena RN - 01/20/2022 11:27 AM EDT Patient calls and is asking about mammogram order. Please place order and fax to [facility]. Please review and advise, Darlene Mena RN documented in this encounterOhiohealth Southeastern Medical Center06-27-2022 History of Present illness Narrative* Octavio Reza MD - 01/11/2022 3:15 PM EDT Images from the original note were not included. This note was created using [employer]. Subjective Attila Kidd is a 76 year old female. Patient presents with: Follow Up SUBJECTIVE: Attila Kidd is a 76 year old year old lady here today for 4 month follow up appointment for review of medical conditions. Stable from heart standpoint Has been to UC. Discussed prior notes. Pain in rib cage [...] Lantus, not Basaglar per patient preference Insulin Joliet, Disposable, (BD ULTRA-FINE FADY PEN NEEDLE) 32 [...] TABLET Octavio Reza MD documented in this encounterOhiohealth Southeastern Medical Center06-08-2022 History of Present illness Narrative* Guillermo Maurer MD - 12/23/2021 4:28 PM EDT This note was created using [employer]. Subjective Patient presents with: Abdominal Pain PCP MD Attila Ortega was here per CC. Abdominal pain [...] Lantus, not Basaglar per patient preference Insulin Joliet, Disposable, (BD ULTRA-FINE FADY PEN NEEDLE) 32 [...] 50 mcg/actuation nasal spray Use 1 [place] in each nostril once daily. (Patientnot taking: [...] recommendations. Guillermo Maurer MD documented in this encounterOhiohealth Southeastern Medical Center06-02-2022 Instructions* Patient Instructions* Kristyn Flores [...] bruising increases, despite treatment. Copyright 1994 by [employer] documented in this encounterOhiohealth Southeastern Medical Center06-02-2022 History of Present illness Narrative* Wanda Phillips APRN.LOCKER ATTENDANT - 12/17/2021 1:12 PM EDT Subjective Attila [...] history is provided by the patient. No cable installer repairer helper was used. Arm Pain The pain is [...] 50 mcg/actuation nasal spray Use 1 [place] in each nostril once daily. blood sugar [...] Lantus, not Basaglar per patient preference Insulin Joliet, Disposable, (BD ULTRA-FINE FADY PEN NEEDLE) 32 [...] AP/LAT RIGHT Radiologist IMPRESSION: No acute process. Physician Assistant Surgery: EVIE Transcribe Date/Time: Dec 17 2021 1:44P Dictated by : CESAR REYES MD - X-ray is negative for fracture. - Wear compression wrap and sling as needed for comfort. May remove at night. - Take Ibuprofen as needed for pain. - Follow up with orthopedics if pain worsens or persists past 3 days. - CONSULT PANEL TO ORTHOPAEDICS Kristyn Slentz, POLYMER SCIENTIST student TEACHING PROVIDER (Physician/PA/SANDSTONE SPLITTER) NOTE OF PERSONAL INVOLVEMENT IN CARE: I have personally seen and examined the patient and performed the medical decision-making components. I have reviewed the Advanced Practice Registered Nurse (SANDSTONE SPLITTER) Student's documentation and verified the findings in the note as written. Any additions or changes are noted in bold/italics. Signature: Wanda Phillips Date: 12/17/2021 Time: 2:06 PM documented in this encounterOhiohealth Southeastern Medical Center06-02-2022 Miscellaneous Notes* Telephone Encounter - Lydia Grande APRN.COMMUNITY DEVELOPMENT COORDINATOR - 12/17/2021 12:55 PM EDT noted, agree [...] agreeable. Rochelle Hoyt RN documented in this encounterOhiohealth Southeastern Medical Center06-01-2022 History of Present illness Narrative* [...] 16, 2021 9:40 AM documented in this encounterOhiohealth Southeastern Medical Center06-01-2022 Miscellaneous Notes* Telephone Encounter - [...] advise. Eleni Serrano LPN documented in this encounterOhiohealth Southeastern Medical Center05-20-2022 Miscellaneous Notes* Telephone Encounter - Lydia Grande APRN.CNS - 12/04/2021 1:56 PM EDT Noted, agree should see eye doctor today if possible * Telephone Encounter - Cammy Moreno RN - 12/04/2021 12:36 PM EDT [...] pcp will call back. documented in this encounterOhiohealth Southeastern Medical Center04-22-2022 Miscellaneous Notes* Telephone Encounter - Rosette Jackson LPN - 11/06/2021 10:20 AM EDT Spoke to Dr Carmichael and updated patient on results, To repeat colonoscopy in 5 years. * Telephone Encounter - Rosette Jackson LPN - 11/06/2021 8:10 AM EDT Patient called asking for results from colonoscopy. [phone] documented in this encounterOhiohealth Southeastern Medical Center04-14-2022 Nurse Note* Dafne Santana RN [...] answered. Amanda Santiago RN documented in this encounterOhiohealth Southeastern Medical Center04-14-2022 History and physical note * [...] 50 mcg/actuation nasal spray Use 1 [place] in each nostril once daily. blood sugar [...] Lantus, not Basaglar per patient preference Insulin Joliet, Disposable, (BD ULTRA-FINE FADY PEN NEEDLE) 32 [...] 2021 TIME: 7:53 AM documented in this encounterOhiohealth Southeastern Medical Center04-12-2022 Miscellaneous Notes* Telephone Encounter - [...] high. Rakel Agosto LPN documented in this encounterOhiohealth Southeastern Medical Center04-12-2022 Miscellaneous Notes* Telephone Encounter - [...] reschedule. Radha Lacy RN documented in this encounterOhiohealth Southeastern Medical Center04-11-2022 Miscellaneous Notes* Telephone Encounter - [...] to reschedule. * Telephone Encounter - Cayla Susan Lynne LPN - 10/26/2021 8:10 AM EDT Pt called and states her BP has been running high and she was told by Dr. Carmichael if her BP is highon 10-29-21 day of her colonoscopy he will not do the scope. Pt states her BP has been running high see below: 10-01-21 AM 129/68 PM 155/86 10-02-21 Am 168/88 PM 149/78 3 Am 149/75 PM 159/79 3 AM 154/85 PM 149/81 10-05-21 AM 136/72 PM 143/67 3 AM 144/70 PM 157/82 3 AM 144/74 PM 155/78 10-08-21 AM 149/78 PM 158/83 10-09-21 AM 150/81 PM 147/80 10-10-21 AM 157/78 10-11-21 AM 154/80 PM 158/87 4-10-06 AM 161/84 PM 152/83 4-11-06 AM 144/77 PM 151/81 4-12-06 AM 150/89 PM 158/89 10-21-21 AM 61/85 [...] possible. Cayla Lynne LPN documented in this encounterOhiohealth Southeastern Medical Center04-11-2022 Miscellaneous Notes* Telephone Encounter - [...] prior to procedure. Please advise patient. PH: [phone]. Thank you. documented in this encounterOhiohealth Southeastern Medical Center04-07-2022 Miscellaneous Notes* Telephone Encounter - [...] you. Asmita Tapia RN documented in this encounterOhiohealth Southeastern Medical Center03-08-2022 Miscellaneous Notes* Telephone Encounter - Shin Garay - 09/22/2021 9:54 AM EST 10-29-2021 [facility] documented in this encounterOhiohealth Southeastern Medical Center02-25-2022 History of Present illness Narrative* Octavio Reza MD - 09/11/2021 11:26 AM EST This note was created using [employer]. Subjective Attila Kidd is a 76 year [...] 50 mcg/actuation nasal spray Use 1 [place] in each nostril once daily. blood sugar [...] Lantus, not Basaglar per patient preference Insulin Jol[place], Disposable, (BD ULTRA-FINE FADY PEN NEEDLE) 32 [...] SURGERY Octavio Reza MD documented in this encounterOhiohealth Southeastern Medical Center10-25-2021 History of Past illness Narrative* Problem Noted Date Resolved Date OVERWEIGHT 05/11/2021 Last Assessment & Plan: Has made dietary changes since recent hospitalization, decreased carbs, feels better, plans to work harder on wt loss. Getting 3 wheeled bike so she can go on trails, not just exercise bike indoors. documented as of this encounter (statuses as of 10/22/2021) [facility] of Past illness Narrative* Problem Noted Date Resolved Date OVERWEIGHT 05/11/2021 Last Assessment & Plan: Has made dietary changes since recent hospitalization, decreased carbs, feels better, plans to work harder on wt loss. Getting 3 wheeled bike so she can go on trails, not just exercise bike indoors. documented as of this encounter (statuses as of 10/26/2021) [facility] of Past illness Narrative* Problem Noted Date Resolved Date OVERWEIGHT 05/11/2021 Last Assessment & Plan: Has made dietary changes since recent hospitalization, decreased carbs, feels better, plans to work harder on wt loss. Getting 3 wheeled bike so she can go on trails, not just exercise bike indoors. documented as of this encounter (statuses as of 10/27/2021) [facility] of Past illness Narrative* Problem Noted Date Resolved Date OVERWEIGHT 05/11/2021 Last Assessment & Plan: Has made dietary changes since recent hospitalization, decreased carbs, feels better, plans to work harder on wt loss. Getting 3 wheeled bike so she can go on trails, not just exercise bike indoors. documented as of this encounter (statuses as of 10/30/2021) [facility] of Past illness Narrative* Problem Noted Date Resolved Date OVERWEIGHT 05/11/2021 Last Assessment & Plan: Has made dietary changes since recent hospitalization, decreased carbs, feels better, plans to work harder on wt loss. Getting 3 wheeled bike so she can go on trails, not just exercise bike indoors. documented as of this encounter (statuses as of 11/02/2021) [facility] of [facility] Narrative* Problem Noted Date Resolved Date OVERWEIGHT 05/11/2021 Last Assessment & Plan: Has made dietary changes since recent hospitalization, decreased carbs, feels better, plans to work harder on wt loss. Getting 3 wheeled bike so she can go on trails, not just exercise bike indoors. documented as of this encounter (statuses as of 11/06/2021) [facility] of [facility] Narrative* Problem Noted Date Resolved Date OVERWEIGHT 05/11/2021 Last Assessment & Plan: Has made dietary changes since recent hospitalization, decreased carbs, feels better, plans to work harder on wt loss. Getting 3 wheeled bike so she can go on trails, not just exercise bike indoors. documented as of this encounter (statuses as of 12/07/2021) [facility] of [facility] Narrative* Problem Noted Date Resolved Date OVERWEIGHT 05/11/2021 Last Assessment & Plan: Has made dietary changes since recent hospitalization, decreased carbs, feels better, plans to work harder on wt loss. Getting 3 wheeled bike so she can go on trails, not just exercise bike indoors. documented as of this encounter (statuses as of 12/16/2021) [facility] Narrative* Problem Noted Date Resolved Date OVERWEIGHT 05/11/2021 Last Assessment & Plan: Has made dietary changes since recent hospitalization, decreased carbs, feels better, plans to work harder on wt loss. Getting 3 wheeled bike so she can go on trails, not just exercise bike indoors. documented as of this encounter (statuses as of 12/16/2021) [facility] Narrative* Problem Noted Date Resolved Date OVERWEIGHT 05/11/2021 Last Assessment & Plan: Has made dietary changes since recent hospitalization, decreased carbs, feels better, plans to work harder on wt loss. Getting 3 wheeled bike so she can go on trails, not just exercise bike indoors. documented as of this encounter (statuses as of 12/17/2021) [facility] Narrative* Problem Noted Date Resolved Date OVERWEIGHT 05/11/2021 Last Assessment & Plan: Has made dietary changes since recent hospitalization, decreased carbs, feels better, plans to work harder on wt loss. Getting 3 wheeled bike so she can go on trails, not just exercise bike indoors. documented as of this encounter (statuses as of 12/17/2021) [facility] Narrative* Problem Noted Date Resolved Date OVERWEIGHT 05/11/2021 Last Assessment & Plan: Has made dietary changes since recent hospitalization, decreased carbs, feels better, plans to work harder on wt loss. Getting 3 wheeled bike so she can go on trails, not just exercise bike indoors. documented as of this encounter (statuses as of 12/17/2021) [facility] Narrative* Problem Noted Date Resolved Date OVERWEIGHT 05/11/2021 Last Assessment & Plan: Has made dietary changes since recent hospitalization, decreased carbs, feels better, plans to work harder on wt loss. Getting 3 wheeled bike so she can go on trails, not just exercise bike indoors. documented as of this encounter (statuses as of 12/24/2021) [facility] Narrative* Problem Noted Date Resolved Date OVERWEIGHT 05/11/2021 Last Assessment & Plan: Has made dietary changes since recent hospitalization, decreased carbs, feels better, plans to work harder on wt loss. Getting 3 wheeled bike so she can go on trails, not just exercise bike indoors. documented as of this encounter (statuses as of 01/04/2022) [facility] Narrative* Problem Noted Date Resolved Date OVERWEIGHT 05/11/2021 Last Assessment & Plan: Has made dietary changes since recent hospitalization, decreased carbs, feels better, plans to work harder on wt loss. Getting 3 wheeled bike so she can go on trails, not just exercise bike indoors. documented as of this encounter (statuses as of 01/21/2022) [facility] Narrative* Problem Noted Date Resolved Date OVERWEIGHT 05/11/2021 Last Assessment & Plan: Has made dietary changes since recent hospitalization, decreased carbs, feels better, plans to work harder on wt loss. Getting 3 wheeled bike so she can go on trails, not just exercise bike indoors. documented as of this encounter (statuses as of 02/11/2022) [facility] Narrative* Problem Noted Date Resolved Date OVERWEIGHT 05/11/2021 Last Assessment & Plan: Has made dietary changes since recent hospitalization, decreased carbs, feels better, plans to work harder on wt loss. Getting 3 wheeled bike so she can go on trails, not just exercise bike indoors. documented as of this encounter (statuses as of 02/15/2022) [facility] Narrative* Problem Noted Date Resolved Date OVERWEIGHT 05/11/2021 Last Assessment & Plan: Has made dietary changes since recent hospitalization, decreased carbs, feels better, plans to work harder on wt loss. Getting 3 wheeled bike so she can go on trails, not just exercise bike indoors. documented as of this encounter (statuses as of 03/14/2022) [facility] Narrative* Problem Noted Date Resolved Date OVERWEIGHT 05/11/2021 Last Assessment & Plan: Has made dietary changes since recent hospitalization, decreased carbs, feels better, plans to work harder on wt loss. Getting 3 wheeled bike so she can go on trails, not just exercise bike indoors. documented as of this encounter (statuses as of 04/01/2022) [facility] Narrative* Problem Noted Date Resolved Date OVERWEIGHT 05/11/2021 Last Assessment & Plan: Has made dietary changes since recent hospitalization, decreased carbs, feels better, plans to work harder on wt loss. Getting 3 wheeled bike so she can go on trails, not just exercise bike indoors. documented as of this encounter (statuses as of 04/03/2022) [facility] Narrative* Problem Noted Date Resolved Date OVERWEIGHT 05/11/2021 Last Assessment & Plan: Has made dietary changes since recent hospitalization, decreased carbs, feels better, plans to work harder on wt loss. Getting 3 wheeled bike so she can go on trails, not just exercise bike indoors. documented as of this encounter (statuses as of 05/18/2022) [facility] Narrative* Problem Noted Date Resolved Date OVERWEIGHT 05/11/2021 Last Assessment & Plan: Has made dietary changes since recent hospitalization, decreased carbs, feels better, plans to work harder on wt loss. Getting 3 wheeled bike so she can go on trails, not just exercise bike indoors. documented as of this encounter (statuses as of 06/07/2022) [facility] Narrative* Problem Noted Date Resolved Date OVERWEIGHT 05/11/2021 Last Assessment & Plan: Has made dietary changes since recent hospitalization, decreased carbs, feels better, plans to work harder on wt loss. Getting 3 wheeled bike so she can go on trails, not just exercise bike indoors. documented as of this encounter (statuses as of 06/07/2022) [facility] Narrative* Problem Noted Date Resolved Date OVERWEIGHT 05/11/2021 Last Assessment & Plan: Has made dietary changes since recent hospitalization, decreased carbs, feels better, plans to work harder on wt loss. Getting 3 wheeled bike so she can go on trails, not just exercise bike indoors. documented as of this encounter (statuses as of 06/14/2022) [facility] N[facility]* Problem Noted Date Resolved Date OVERWEIGHT 05/11/2021 Last Assessment & Plan: Has made dietary changes since recent hospitalization, decreased carbs, feels better, plans to work harder on wt loss. Getting 3 wheeled bike so she can go on trails, not just exercise bike indoors. documented as of this encounter (statuses as of 06/21/2022) [facility] Narr[facility]* Problem Noted Date Resolved Date OVERWEIGHT 05/11/2021 Last Assessment & Plan: Has made dietary changes since recent hospitalization, decreased carbs, feels better, plans to work harder on wt loss. Getting 3 wheeled bike so she can go on trails, not just exercise bike indoors. documented as of this encounter (statuses as of 07/22/2022) [facility] Narrative* Problem Noted Date Resolved Date OVERWEIGHT 05/11/2021 Last Assessment & Plan: Has made dietary changes since recent hospitalization, decreased carbs, feels better, plans to work harder on wt loss. Getting 3 wheeled bike so she can go on trails, not just exercise bike indoors. documented as of this encounter (statuses as of 07/27/2022) [facility]* Problem Noted Date Resolved Date OVERWEIGHT 05/11/2021 Last Assessment & Plan: Has made dietary changes since recent hospitalization, decreased carbs, feels better, plans to work harder on wt loss. Getting 3 wheeled bike so she can go on trails, not just exercise bike indoors. documented as of this encounter (statuses as of 07/28/2022) [facility]* Problem Noted Date Resolved Date OVERWEIGHT 05/11/2021 Last Assessment & Plan: Has made dietary changes since recent hospitalization, decreased carbs, feels better, plans to work harder on wt loss. Getting 3 wheeled bike so she can go on trails, not just exercise bike indoors. documented as of this encounter (statuses as of 07/28/2022) [facility] Narr[facility]* Problem Noted Date Resolved Date OVERWEIGHT 05/11/2021 Last Assessment & Plan: Has made dietary changes since recent hospitalization, decreased carbs, feels better, plans to work harder on wt loss. Getting 3 wheeled bike so she can go on trails, not just exercise bike indoors. documented as of this encounter (statuses as of 07/29/2022) [facility]* Problem Noted Date Resolved Date OVERWEIGHT 05/11/2021 Last Assessment & Plan: Has made dietary changes since recent hospitalization, decreased carbs, feels better, plans to work harder on wt loss. Getting 3 wheeled bike so she can go on trails, not just exercise bike indoors. documented as of this encounter (statuses as of 2022) [facility] Narrative* Problem Noted Date Resolved Date OVERWEIGHT 05/11/2021 Last Assessment & Plan: Has made dietary changes since recent hospitalization, decreased carbs, feels better, plans to work harder on wt loss. Getting 3 wheeled bike so she can go on trails, not just exercise bike indoors. documented as of this encounter (statuses as of 08/23/2022) [facility]* Problem Noted Date Resolved Date OVERWEIGHT 05/11/2021 Last Assessment & Plan: Has made dietary changes since recent hospitalization, decreased carbs, feels better, plans to work harder on wt loss. Getting 3 wheeled bike so she can go on trails, not just exercise bike indoors. documented as of this encounter (statuses as of 09/01/2022) [facility]* Problem Noted Date Resolved Date OVERWEIGHT 05/11/2021 Last Assessment & Plan: Has made dietary changes since recent hospitalization, decreased carbs, feels better, plans to work harder on wt loss. Getting 3 wheeled bike so she can go on trails, not just exercise bike indoors. documented as of this encounter (statuses as of 09/02/2022) [facility] N[facility]* Problem Noted Date Resolved Date OVERWEIGHT 05/11/2021 Last Assessment & Plan: Has made dietary changes since recent hospitalization, decreased carbs, feels better, plans to work harder on wt loss. Getting 3 wheeled bike so she can go on trails, not just exercise bike indoors. documented as of this encounter (statuses as of 09/08/2022) [facility]* Problem Noted Date Resolved Date OVERWEIGHT 05/11/2021 Last Assessment & Plan: Has made dietary changes since recent hospitalization, decreased carbs, feels better, plans to work harder on wt loss. Getting 3 wheeled bike so she can go on trails, not just exercise bike indoors. documented as of this encounter (statuses as of 09/14/2022) [facility]* Problem Noted Date Resolved Date OVERWEIGHT 05/11/2021 Last Assessment & Plan: Has made dietary changes since recent hospitalization, decreased carbs, feels better, plans to work harder on wt loss. Getting 3 wheeled bike so she can go on trails, not just exercise bike indoors. documented as of this encounter (statuses as of 09/20/2022) [facility]10-25-2021 History of Past illness Narrative* Problem Noted Date Resolved Date OVERWEIGHT 05/11/2021 Last Assessment & Plan: Has made dietary changes since recent hospitalization, decreased carbs, feels better, plans to work harder on wt loss. Getting 3 wheeled bike so she can go on trails, not just exercise bike indoors. documented as of this encounter (statuses as of 09/21/2022) [facility]10-25-2021 History of Past illness Narrative* Problem Noted Date Resolved Date OVERWEIGHT 05/11/2021 Last Assessment & Plan: Has made dietary changes since recent hospitalization, decreased carbs, feels better, plans to work harder on wt loss. Getting 3 wheeled bike so she can go on trails, not just exercise bike indoors. documented as of this encounter (statuses as of 09/27/2022) [facility]10[facility]-2021 History of Past illness Narrative* Problem Noted Date Resolved Date OVERWEIGHT 05/11/2021 Last Assessment & Plan: Has made dietary changes since recent hospitalization, decreased carbs, feels better, plans to work harder on wt loss. Getting 3 wheeled bike so she can go on trails, not just exercise bike indoors. documented as of this encounter (statuses as of 10/01/2022) [facility]-25-2021 History of Past illness Narrative* Problem Noted Date Resolved Date OVERWEIGHT 05/11/2021 Last Assessment & Plan: Has made dietary changes since recent hospitalization, decreased carbs, feels better, plans to work harder on wt loss. Getting 3 wheeled bike so she can go on trails, not just exercise bike indoors. documented as of this encounter (statuses as of 10/01/2022) [facility]2021 History of Past illness Narrative* Problem Noted Date Resolved Date OVERWEIGHT 05/11/2021 Last Assessment & Plan: Has made dietary changes since recent hospitalization, decreased carbs, feels better, plans to work harder on wt loss. Getting 3 wheeled bike so she can go on trails, not just exercise bike indoors. documented as of this encounter (statuses as of 10/05/2022) [place] [address]-25-2021 History of Past illness Narrative* Problem Noted Date Resolved Date OVERWEIGHT 05/11/2021 Last Assessment & Plan: Has made dietary changes since recent hospitalization, decreased carbs, feels better, plans to work harder on wt loss. Getting 3 wheeled bike so she can go on trails, not just exercise bike indoors. documented as of this encounter (statuses as of 10/07/2022) [facility]21 History of Past illness Narrative* Problem Noted Date Diagnosed Date Resolved Date OVERWEIGHT 05/11/2021 Last Assessment & Plan: Has made dietary changes since recent hospitalization, decreased carbs, feels better, plans to work harder on wt loss. Getting 3 wheeled bike so she can go on trails, not just exercise bike indoors. documented as of this encounter (statuses as of 02/21/2023) [facility] History of Past illness Narrative* Problem Noted Date Diagnosed Date Resolved Date OVERWEIGHT 05/11/2021 Last Assessment & Plan: Has made dietary changes since recent hospitalization, decreased carbs, feels better, plans to work harder on wt loss. Getting 3 wheeled bike so she can go on trails, not just exercise bike indoors. documented as of this encounter (statuses as of 02/21/2023) [facility] History of Past illness Narrative* Problem Noted Date Diagnosed Date Resolved Date OVERWEIGHT 05/11/2021 Last Assessment & Plan: Has made dietary changes since recent hospitalization, decreased carbs, feels better, plans to work harder on wt loss. Getting 3 wheeled bike so she can go on trails, not just exercise bike indoors. documented as of this encounter (statuses as of 03/01/2023) [facility] History of Past illness Narrative* Problem Noted Date Diagnosed Date Resolved Date OVERWEIGHT 05/11/2021 Last Assessment & Plan: Has made dietary changes since recent hospitalization, decreased carbs, feels better, plans to work harder on wt loss. Getting 3 wheeled bike so she can go on trails, not just exercise bike indoors. documented as of this encounter (statuses as of 05/16/2023) [facility] History of Past illness Narrative* Problem Noted Date Diagnosed Date Resolved Date OVERWEIGHT 05/11/2021 Last Assessment & Plan: Has made dietary changes since recent hospitalization, decreased carbs, feels better, plans to work harder on wt loss. Getting 3 wheeled bike so she can go on trails, not just exercise bike indoors. documented as of this encounter (statuses as of 06/15/2023) [facility] History of Past illness Narrative* Problem Noted Date Diagnosed Date Resolved Date OVERWEIGHT 05/11/2021 Last Assessment & Plan: Has made dietary changes since recent hospitalization, decreased carbs, feels better, plans to work harder on wt loss. Getting 3 wheeled bike so she can go on trails, not just exercise bike indoors. documented as of this encounter (statuses as of 06/23/2023) [facility]2021 History of Past illness Narrative* Problem Noted Date Diagnosed Date Resolved Date OVERWEIGHT 05/11/2021 Last Assessment & Plan: Has made dietary changes since recent hospitalization, decreased carbs, feels better, plans to work harder on wt loss. Getting 3 wheeled bike so she can go on trails, not just exercise bike indoors. documented as of this encounter (statuses as of 06/24/2023) [facility] History of Past illness Narrative* Problem Noted Date Diagnosed Date Resolved Date OVERWEIGHT 05/11/2021 Last Assessment & Plan: Has made dietary changes since recent hospitalization, decreased carbs, feels better, plans to work harder on wt loss. Getting 3 wheeled bike so she can go on trails, not just exercise bike indoors. documented as of this encounter (statuses as of 06/26/2023) [facility]2021 History of Past illness Narrative* Problem Noted Date Diagnosed Date Resolved Date OVERWEIGHT 05/11/2021 Last Assessment & Plan: Has made dietary changes since recent hospitalization, decreased carbs, feels better, plans to work harder on wt loss. Getting 3 wheeled bike so she can go on trails, not just exercise bike indoors. documented as of this encounter (statuses as of 09/01/2023) [facility] History of Past illness Narrative* Problem Noted Date Diagnosed Date Resolved Date OVERWEIGHT 05/11/2021 Last Assessment & Plan: Has made dietary changes since recent hospitalization, decreased carbs, feels better, plans to work harder on wt loss. Getting 3 wheeled bike so she can go on trails, not just exercise bike indoors. documented as of this encounter (statuses as of 09/05/2023) [facility] History of Past illness Narrative* Problem Noted Date Diagnosed Date Resolved Date OVERWEIGHT 05/11/2021 Last Assessment & Plan: Has made dietary changes since recent hospitalization, decreased carbs, feels better, plans to work harder on wt loss. Getting 3 wheeled bike so she can go on trails, not just exercise bike indoors. documented as of this encounter (statuses as of 09/22/2023) [facility]2021 History of Past illness Narrative* Problem Noted Date Diagnosed Date Resolved Date OVERWEIGHT 05/11/2021 Last Assessment & Plan: Has made dietary changes since recent hospitalization, decreased carbs, feels better, plans to work harder on wt loss. Getting 3 wheeled bike so she can go on trails, not just exercise bike indoors. documented as of this encounter (statuses as of 09/23/2023) [facility] History of Past illness Narrative* Problem Noted Date Diagnosed Date Resolved Date OVERWEIGHT 05/11/2021 Last Assessment & Plan: Has made dietary changes since recent hospitalization, decreased carbs, feels better, plans to work harder on wt loss. Getting 3 wheeled bike so she can go on trails, not just exercise bike indoors. documented as of this encounter (statuses as of 09/26/2023) [facility] History of Past illness Narrative* Problem Noted Date Diagnosed Date Resolved Date OVERWEIGHT 05/11/2021 Last Assessment & Plan: Has made dietary changes since recent hospitalization, decreased carbs, feels better, plans to work harder on wt loss. Getting 3 wheeled bike so she can go on trails, not just exercise bike indoors. documented as of this encounter (statuses as of 09/29/2023) [facility] History of Past illness Narrative* Problem Noted Date Diagnosed Date Resolved Date OVERWEIGHT 05/11/2021 Last Assessment & Plan: Has made dietary changes since recent hospitalization, decreased carbs, feels better, plans to work harder on wt loss. Getting 3 wheeled bike so she can go on trails, not just exercise bike indoors. documented as of this encounter (statuses as of 10/03/2023) [facility] History of Past illness Narrative* Problem Noted Date Diagnosed Date Resolved Date OVERWEIGHT 05/11/2021 Last Assessment & Plan: Has made dietary changes since recent hospitalization, decreased carbs, feels better, plans to work harder on wt loss. Getting 3 wheeled bike so she can go on trails, not just exercise bike indoors. documented as of this encounter (statuses as of 10/18/2023) [facility] History of Past illness Narrative* Problem Noted Date Diagnosed Date Resolved Date OVERWEIGHT 05/11/2021 Last Assessment & Plan: Has made dietary changes since recent hospitalization, decreased carbs, feels better, plans to work harder on wt loss. Getting 3 wheeled bike so she can go on trails, not just exercise bike indoors. documented as of this encounter (statuses as of 10/24/2023) [facility] History of Past illness Narrative* Problem Noted Date Diagnosed Date Resolved Date OVERWEIGHT 05/11/2021 Last Assessment & Plan: Has made dietary changes since recent hospitalization, decreased carbs, feels better, plans to work harder on wt loss. Getting 3 wheeled bike so she can go on trails, not just exercise bike indoors. documented as of this encounter (statuses as of 10/30/2023) [facility] History of Past illness Narrative* Problem Noted Date Diagnosed Date Resolved Date OVERWEIGHT 05/11/2021 Last Assessment & Plan: Has made dietary changes since recent hospitalization, decreased carbs, feels better, plans to work harder on wt loss. Getting 3 wheeled bike so she can go on trails, not just exercise bike indoors. documented as of this encounter (statuses as of 10/31/2023) [facility] History of Past illness Narrative* Problem Noted Date Diagnosed Date Resolved Date OVERWEIGHT 05/11/2021 Last Assessment & Plan: Has made dietary changes since recent hospitalization, decreased carbs, feels better, plans to work harder on wt loss. Getting 3 wheeled bike so she can go on trails, not just exercise bike indoors. documented as of this encounter (statuses as of 11/01/2023) [facility] History of Past illness Narrative* Problem Noted Date Diagnosed Date Resolved Date OVERWEIGHT 05/11/2021 Last Assessment & Plan: Has made dietary changes since recent hospitalization, decreased carbs, feels better, plans to work harder on wt loss. Getting 3 wheeled bike so she can go on trails, not just exercise bike indoors. documented as of this encounter (statuses as of 11/01/2023) [facility] August 02, 2022 12:37pm Note Date/Time August 02, 2022 1 2:32pm [facility] Medical Records Department [address] [place] [address] Transfer to [facility] MR#: [id number] Acct: [id number] Name: MARTI,ATTILA Godinez Rep #:[id number] : 1945 77 From: Zay Escalera DO PCP: Dr. Octavio Reza MD Status:AD M IN Certification of patient admission REQUIRED AT TIME OF ADMISSION. I CERTIFY THAT POST-HOSPITAL ECF SERVICES ARE REQUIRED TO BE GIVEN ON AN IN-PATIENT BASIS BECAUSE OF THE ABOVE NAMED PATIENT'S NEED FOR SHELTER CARE ON A CONTINUING BASIS FOR THE CONDITION(S) FOR WHICH HE/SHE WAS RECEIVING IN-PATIENT HOSPITAL SERVICES PRIOR TO HIS/HER TRANSFER TO THE F. 08/02/22 1237<Electronically signed by Zay Escalera DO> [...] Requested for PT OT eval and social media analyst to assist with discharge planning. To SNF Allergies/Procedures Done in Hospital Allergies pravastatin Allergy (Unknown, Verified 07/31/22 23:52) unknown rosuvastatin [From Crestor] Allergy (Unknown, Verified 07/31/22 23:52) myalgias simvastatin Allergy (Unknown, Verified 07/31/22 23:52) unknown escitalopram Allergy (Verified 07/31/22 23:52) Other hydrochlorothiazide Allergy (Verified 07/31/22 23:52) Other Pufowkf-QVP-ExR Reductase Inhibitor [Kpfbvgc-Ehl-Gni Reductase Inhibitor] Adverse Reaction (Severe, Verified 07/31/22 [...] Reza MD; Dr. Daisy Gan MD ~ [facility] Work Phone: Discharge summary Author Dr. Escalera [facility] August 02, 2022 12:39pm Note Date/Time August 02, 2022 1 2:39pm [facility] Medical Records Department [address] [place] [address] Discharge Summary 08/02/22 1237 MR#: [id number] Acct: [id number] Name: ATTILA KIDD Rep #:[id number] : 1945 77 From: Zay Escalera DO PCP: Dr. Octavio Reza MD Status:[facility] IN Location: [place] [address] [id number] Providers Date of Admission: 07/31/22 Primary [...] Requested for PT OT eval and social media analyst to assist with discharge planning. To SNF [...] 79.8 H, Lymph % (Auto) 11.1 L, [place] % (Auto) 8.1, Eos % (Auto) 0.4, Baso % (Auto) 0.2, Absolute Neuts (auto)4.0, Absolute Lymphs (auto) 0.56 L, Nucleated RBC % 0.6 08/02/22 06:00: Sodium 137, Potassium 3.7, Chloride 101, Carbon Dioxide 26.0, Anion Gap 10, BUN 9, Creatinine 0.66, Estim Creat Clear Calc 49.24, Est GFR (MDRD) Af Amer 111, Est GFR (MDRD) Non-Af 92, BUN/Creatinine Ratio 13.5, [id number] H, Calcium 8.0 L, Phosphorus 2.4 L, [...] [facility] Charges/Coding Visit Charges Inpatient E&M: 98702 Disch Hosp 08/02/22 1239 <Electronically signed by Zay Escalera DO> Cosigner Signature (if applicable): CC: Dr. Zay Escalera DO; Dr. Octavio Reza MD~ Signed [facility] Work Phone: Evaluation note* Diagnosis Screening for colon cancer Special screening for malignant neoplasms, colon [facility] Diagnosis Screening for colon cancer- Primary Special screening for malignant neoplasms, colon [facility] Diagnosis Type I diabetes [...] malignant neoplasms, colon documented in this encounter [facility] note* Diagnosis Chest pain, unspecified type- Primary documented in this encounter [facility] note* Diagnosis Chest pain, unspecified type documented in this encounter [facility] note* Diagnosis Pain of right upper extremity- Primary documented in this encounter [facility] note* Diagnosis Pain of upper abdomen- Primary Abdominal pain, other specified site Alternating constipation and diarrhea Other symptoms involving digestive system documented in this encounter [facility] note* Diagnosis Breast cancer screening by mammogram- Primary Dense breasts Inconclusive mammogram documented in this encounter [facility] note* Diagnosis Onset Date Resolution Status Paroxysmal SVT (supraventricular tachycardia) acute Essential hypertension chron ic Hyperlipidemia [facility] Work Phone: Evaluation note* Diagnosis Palpitations- Primary Encounter for immunization Need for other specified prophylactic vaccination against single bacterial disease documented in this encounter [facility] note* Diagnosis 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)- Primary 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, not stated as uncontrolled Lipomas Vitamin D deficiency Unspecified vitamin D deficiency Insomnia, unspecified type documented in this encounter [facility] note* Diagnosis 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, not stated as uncontrolled Charcot foot due to 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, not stated as uncontrolled documented in this encounter [facility] note* Diagnosis Type I diabetes mellitus with [...] single bacterial disease documented in this encounter [facility] note* Diagnosis Onset Date Resolution Status Paroxysmal SVT (supraventricular tachycardia) acute Essential hypertension chron ic Hyperlipidemia chronic Hypoxia acute [facility] Work Phone: Evaluation note* Diagnosis Onset Date Resolution Status Paroxysmal SVT (supraventricular tachycardia) acute Essential hypertension chron ic Hyperlipidemia chronic Hypoxia acute Acute hypokalemia acute Acute respiratory failure with hypoxia acute Bilateral pneumonia acute Hyperglycemia due to type 2 diabetes mellitus acute 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 Essential hypertension chron ic Hyperlipidemia chronic [facility] Work Phone: Evaluation note* Diagnosis 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)- Primary 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, not stated as uncontrolled Stress at home Unspecified family circumstance [facility] Diagnosis Onset Date Resolution Status Paroxysmal SVT (supraventricular tachycardia) acute Essential hypertension chron ic Hyperlipidemia chronic Hypoxia acute Acute respiratory failure with hypoxia acute Bilateral pneumonia acute Hyperglycemia due to type 2 diabetes mellitus acute 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 Essential hypertension chron ic Hyperlipidemia chronic Acute hypokalemia resolved Bilateral pneumonia acute Hypoxia acute Acute hypokalemia resolved [facility] Work Phone: Evaluation note* Diagnosis Pneumonia due to COVID-19 virus- Primary Hypoxemia 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, not stated as uncontrolled Moderate persistent asthma without complication Unspecified asthma [facility] Diagnosis Essential hypertension- Primary Unspecified essential hypertension Palpitations 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, not stated as uncontrolled [facility] Diagnosis Cellulitis of female genitalia Unspecified inflammatory disease of cervix, vagina, and vulva [facility] Diagnosis Onset Date Resolution Status Hypoxia resolved Acute hypokalemia resolved Acute respiratory failure with hypoxia resolved Asthma exacerbation in COPD resolved Bilateral pneumonia resolved Acute hypokalemia resolved Bilateral pneumonia resolved Hypoxia resolved [facility] Work Phone: Evaluation note* Diagnosis Labial abscess- Primary Other abscess of vulva Bradycardia Other specified cardiac dysrhythmias [facility] Diagnosis Onset Date Resolution Status CRAWLEY (dyspnea on exertion) ac eek [facility] Work Phone: Evaluation note* Diagnosis Psoriasis of scalp- Primary Other psoriasis Seborrheic dermatitis Seborrheic dermatitis, unspecified Essential hypertension Unspecified essential hypertension Palpitations History of delirium Personal history of other mental disorder [facility]* Diagnosis Screening mammogram for breast cancer- Primary [facility]* Diagnosis Palpitations [facility] noteNo assessment information availableW[facility] Work Phone: Evaluation [facility]* Diagnosis Paroxysmal SVT (supraventricular tachycardia)- Primary Paroxysmal supraventricular tachycardia Palpitations documented in this encounter [facility] note* Diagnosis Severe persistent asthma without complication [facility] this [facility] Diagnosis Severe persistent asthma without complication- Primary Obesity, Class III, BMI 40-49.9 (morbid obesity) (HCC) Morbid obesity [facility] this 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, not stated as uncontrolled Vitamin D deficiency Unspecified vitamin D deficiency Pain in finger of both hands [facility] Diagnosis Polyarthralgia- Primary Pain in joint, multiple sites Pain in finger of both hands Elevated C-reactive protein (CRP) Elevated sedimentation rate documented in this encounter [facility] note* Diagnosis Mild persistent asthma without complication- Primary Unspecified asthma Morbid obesity (HCC) Morbid obesity THAIS (obstructive sleep apnea) Obstructive sleep apnea (adult) (pediatric) documented in this encounter [facility] note* Diagnosis 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, not stated as uncontrolled Charcot foot due to 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, not stated as uncontrolled [facility] Diagnosis Onset Date Resolution Status Essential hypertension chron ic Hyperlipidemia chronic Paroxysmal SVT (supraventricular tachycardia) chronic [facility] Work Phone: Evaluation note* Diagnosis PSVT (paroxysmal supraventricular tachycardia) (HCC)- Primary Paroxysmal supraventricular tachycardia PAC (premature atrial contraction) Supraventricular premature beats Primary insomnia Persistent disorder of initiating or maintaining sleep [facility] Diagnosis Pain and swelling of right lower leg- Primary [facility] Diagnosis Pain and swelling of right lower leg [facility]* Diagnosis Type I diabetes mellitus with manifestations (HCC)- Primary 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, not stated as uncontrolled Encounter for medication management Encounter for long-term (current) use of other medications [facility] Diagnosis Type I diabetes mellitus with manifestations (HCC)- Primary 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, not stated as uncontrolled [facility] Diagnosis Vitamin D deficiency Unspecified vitamin D deficiency [facility] Diagnosis Diabetes mellitus type 1, controlled, without complications (HCC)- Primary Type I (juvenile type) diabetes mellitus without mention of complication, not stated as uncontrolled 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, not stated as uncontrolled [facility] Diagnosis Localized swelling, mass and lump, neck- Primary Swelling, mass, or lump in head and neck Cutaneous horn Other specified dermatoses [facility] Diagnosis Type I diabetes mellitus with manifestations (HCC)- Primary 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, not stated as uncontrolled [facility] Diagnosis Diabetes mellitus type 1, controlled, without complications (HCC)- Primary Type I (juvenile type) diabetes mellitus without mention of complication, not stated as uncontrolled [facility] Diagnosis Type I diabetes mellitus with manifestations (HCC)- Primary 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 Diagnosis HYPERLIPIDEMIA NEC/NOS Other and [...] breast cancer- Primary documented in this encounter [facility] note* Diagnosis HYPERLIPIDEMIA NEC/NOS Other and unspecified [...] Shortness of breath [facility] Diagnosis HYPERLIPIDEMIA NEC/NOS Other [...] stated as uncontrolled documented in this [facility] Diagnosis HYPERLIPIDEMIA NEC/NOS Other and [...] Seborrheic dermatitis, unspecified documented in this encounter [facility] note* Diagnosis HYPERLIPIDEMIA NEC/NOS Other and unspecified [...] stated as uncontrolled documented in this [facility] Diagnosis HYPERLIPIDEMIA NEC/NOS Other and [...] complication Unspecified asthma documented in this encounter [facility] note* Diagnosis HYPERLIPIDEMIA NEC/NOS Other and unspecified [...] apnea (adult) (pediatric) documented in this encounter [facility] note* Diagnosis HYPERLIPIDEMIA NEC/NOS Other and unspecified [...] stated as uncontrolled [facility] Diagnosis HYPERLIPIDEMIA NEC/NOS Other [...] stated as uncontrolled [facility] Diagnosis HYPERLIPIDEMIA NEC/NOS Other [...] right upper extremity documented in this [facility] Diagnosis HYPERLIPIDEMIA NEC/NOS Other and [...] of unspecified site documented in this [facility] Diagnosis HYPERLIPIDEMIA NEC/NOS Other and [...] of unspecified site documented in this encounter [facility] note* Diagnosis HYPERLIPIDEMIA NEC/NOS Other and unspecified [...] stated as uncontrolled documented in this encounter [facility] note* Diagnosis HYPERLIPIDEMIA NEC/NOS Other and unspecified [...] Other premature beats documented in this [facility] Diagnosis HYPERLIPIDEMIA NEC/NOS Other and [...] stated as uncontrolled documented in this [facility] Diagnosis HYPERLIPIDEMIA NEC/NOS Other and [...] both lower extremities documented in this encounter [facility] note* Diagnosis HYPERLIPIDEMIA NEC/NOS Other and unspecified [...] stated as uncontrolled documented in this encounter [facility] note* Diagnosis HYPERLIPIDEMIA NEC/NOS Other and unspecified [...] hematuria Acute cystitis documented in this encounter [facility] Diagnosis HYPERLIPIDEMIA NEC/NOS Other and [...] stated as uncontrolled documented in this [facility] Diagnosis HYPERLIPIDEMIA NEC/NOS Other and [...] stated as uncontrolled documented in this [facility] Diagnosis HYPERLIPIDEMIA NEC/NOS Other and [...] stated as uncontrolled documented in this encounter [facility] note* Diagnosis HYPERLIPIDEMIA NEC/NOS Other and unspecified [...] stated as uncontrolled documented in this encounter [facility] note* Diagnosis HYPERLIPIDEMIA NEC/NOS Other and unspecified [...] excess calories (HCC) documented in this encounter [facility] note* Diagnosis HYPERLIPIDEMIA NEC/NOS Other and unspecified [...] Seborrheic dermatitis, unspecified documented in this encounter [facility] note* Diagnosis HYPERLIPIDEMIA NEC/NOS Other and unspecified [...] stated as uncontrolled documented in this [facility] Diagnosis HYPERLIPIDEMIA NEC/NOS Other and [...] stated as uncontrolled documented in this encounter [facility] note* Diagnosis HYPERLIPIDEMIA NEC/NOS Other and unspecified [...] without complication (HCC) documented in this encounter [facility] note* Diagnosis HYPERLIPIDEMIA NEC/NOS Other and unspecified [...] of foot (HCC) documented in this encounter [facility] note* Diagnosis HYPERLIPIDEMIA NEC/NOS Other and unspecified [...] in adult, unspecified whether serious comorbidity present ([facility]) documented in this encounter [facility] note* Diagnosis HYPERLIPIDEMIA NEC/NOS Other and unspecified [...] hypertension, benign Type 1 diabetes mellitus with hyperglycemia (HCC)- Primary Type I (juvenile type) diabetes mellitus without mention of complication, not stated as uncontrolled Anxiety Anxiety state, unspecified Slow transit constipation Essential (primary) hypertension Unspecified essential hypertension Gastroesophageal reflux disease without esophagitis Esophageal reflux Class 3 severe obesity due to excess calories with body mass index (BMI) of 40.0 to 44.9 in adult, unspecified whether serious comorbidity present (HCC) Diabetes mellitus type 1, controlled, without complications (HCC)- Primary Type I (juvenile type) diabetes mellitus without mention of complication, not stated as uncontrolled documented in this encounter [facility] note* Diagnosis HYPERLIPIDEMIA NEC/NOS Other and unspecified [...] stated as uncontrolled documented in this encounter [facility] note* Diagnosis HYPERLIPIDEMIA NEC/NOS Other and unspecified [...] stated as uncontrolled documented in this encounter [facility] note* Diagnosis HYPERLIPIDEMIA NEC/NOS Other and unspecified [...] breast cancer- Primary documented in this encounter [facility] note* Diagnosis HYPERLIPIDEMIA NEC/NOS Other and unspecified [...] not stated as uncontrolled Essential hypertension, benign Facial flushing- Primary Flushing Essential (primary) hypertension Unspecified essential hypertension documented in this encounter [facility] note* Diagnosis HYPERLIPIDEMIA NEC/NOS Other and unspecified [...] stated as uncontrolled [facility] Additional Instructions [facility] Phone: Hospital Discharge instructions Additional Instructions Your chest x-ray shows no sign of pneumonia and COVID/flu/RSV swab is negative. I suspect this is a different viral upper respiratory infection. Use nasal saline and [id number]-[id number] congestion medication as needed. Follow-up with your doctor. If symptoms worsen return to ER.[facility] Work Phone: Hospital Discharge instructions Additional Instructions Follow-up with endocrinology next week as scheduled.[facility] Work Phone: Hospital Discharge instructions Additional Instructions Follow-up with your doctor in outpatient setting. Return with worsening symptoms or any concerns. Your CT scan did not show anything surgical going on. Blood work was largely normal. Return with worsening symptoms or other concerns. Follow-up on urine culture with your primary care physicianW[facility] Work Phone: Hospital Discharge instructions Additional Instructions You can take odml-[id number]-[id number] Imodium as needed. Drink plenty of fluids. [...] the small amount of blood in your stool.[facility] Work Phone: Hospital Discharge instructions Additional Instructions Left lower leg ultrasound negative for any blood clots. Bruising should heal with time. 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 Call them with a log of your blood sugars as you have been. Keep a log of your blood sugars. Return with fever, chills, nausea, vomiting, abdominal pain, new or worsening symptoms.[facility] Work Phone: Hospital Discharge instructions Additional Instructions Your exam is good today. The labs you had done in the middle of November were good also. Your blood sugar here today was 227. Take your insulin per your sliding scale when you get home.[facility] Work Phone: Hospital Discharge instructions Additional Instructions Today your tests look normal. 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 If symptoms significantly change or worsen please come back to the ER.[facility] Work Phone: Hospital Discharge instructionsAdditional Instructions Take your insulin dose tonight as [facility] Work Phone: Reason for referral (narrative)* Outpatient Procedure (Routine) - Closed Specialty Diagnoses / Procedures Referred By Contac t Referred To Contact [facility] Diagnoses Screening for colon cancer Procedures COLONOSCOPY SCREENING COLONOSCOPY FLX DX W/COLLJ SPEC WHEN Holland Mercado MD [address] [place] [address] [place] [id number] Referral ID Status Reason Start Date Expiration Date V isits Requested Visits Authorized Closed Auto-Generate d Referral 09/22/2021 09/22/2022 1 1 [facility] for referral (narrative)* Outpatient Procedure (Routine) - Closed Specialty Diagnoses / Procedures Referred By Contac yeimi Referred To Contact [facility] Diagnoses Screening for colon cancer Procedures COLONOSCOPY SCREENING COLONOSCOPY FLX DX W/COLLJ SPEC WHEN Holland Mercado MD [address] [place] [address] [facility] [address] [place] [address] Referral ID Status Reason Start Date Expiration Date V isits Requested Visits Authorized Closed Auto-Generate d Referral 09/22/2021 09/22/2022 1 1 [facility] for referral (narrative)* Diagnostic Procedure Only (Routine) - Pending Review Specialty Diagnoses / Procedures Referred By Contac t Referred To Contact [facility] Diagnoses Breast cancer screening by mammogram Dense breasts Procedures KELLY SCREENING W MINAL SCREENING DIGITAL BREAST TOMOSYNTHESIS BI SCREENING MAMMOGRAPHY BI 2-VIEW BREAST INC CAD Lydia GrandeJOSEFINA.COMMUNITY DEVELOPMENT COORDINATOR [address] [place] [address] [facility] [address] [place] [address] Referral ID Status Reason Start Date Expiration Date Visits Requested Visits Authorized [id number] Pending Review Auto-Generat ed Referral 01/21/2022 02/19/2023 1 1 [facility] for referral (narrative)* Diagnostic Procedure Only (Routine) - Pending Review Specialty Diagnoses / Procedures Referred By Contac t Referred To Contact [facility] Diagnoses Screening mammogram for breast cancer Procedures KELLY SCREENING W MINAL SCREENING DIGITAL BREAST TOMOSYNTHESIS BI SCREENING MAMMOGRAPHY BI 2-VIEW BREAST INC Octavio Tolbert MD [address] [place] [address] [facility] [address] [place] [address] Referral ID Status Reason Start Date Expiration Date Visits Requested Visits Authorized [id number] Pending Review Auto-Generat ed Referral 02/21/2023 03/22/2024 1 1 [facility] for referral (narrative)* Outpatient Procedure (Routine) - Closed Specialty Diagnoses / Procedures Referred By Contac t Referred To Contact [facility] Diagnoses Severe persistent asthma without complication Procedures NITRIC OXIDE, EXHALED NITRIC OXIDE GAS DETERMINATION Tierney Nunez PA-C [address] [place] [address] [facility] [address] [place] [address] Referral ID Status Reason Start Date Expiration Date V isits Requested Visits Authorized [id number] Closed Auto-Generate d Referral 06/23/2023 07/22/2024 1 1 * Outpatient Procedure (Routine) - Closed Specialty Diagnoses / Procedures Referred By Contac t Referred To [facility] Diagnoses Severe persistent asthma without complication Procedures SPIROMETRY BASELINE ONLY SPMTRY W/VC EXPIRATORY MYRON W/WO MXML VOL VNTJ Tierney Nunez PA-C [address] [place] [address] [address] Referral ID Status Reason Start Date Expiration Date V isits Requested Visits Authorized [id number] Closed Auto-Generate d Referral 06/23/2023 07/17/2023 1 1 * Outpatient Procedure (Routine) - Closed Specialty Diagnoses / Procedures Referred By Contac t Referred To [facility] Diagnoses Severe persistent asthma without complication Procedures OXIMETRY WITH AMBULATION NONINVASIVE EAR/PULSE OXIMETRY MULTIPLE Tierney Huber PA-C [address] [place] [address] [address] Referral ID Status Reason Start Date Expiration Date V isits Requested Visits Authorized [id number] Closed Auto-Generate d Referral 06/23/2023 07/17/2023 1 1 [facility] for referral (narrative)* Outpatient Procedure (Routine) - Authorized Specialty Diagnoses / Procedures Referred By Contac t Referred To [facility] Diagnoses Mild persistent asthma without complication Procedures NITRIC OXIDE, EXHALED NITRIC OXIDE GAS DETERMINATION Christine Bianchi MD [address] [place] [address] [address] Referral ID Status Reason Start Date Expiration Date Visits Requested Visits Authorized [id number] Authorized Auto-Generat ed Referral 09/22/2023 10/21/2024 1 1 [facility] for referral (narrative)* Diagnostic Procedure Only (Urgent) - Closed Specialty Diagnoses / Procedures Referred By Karlac t Referred To Contact [facility] Diagnoses Pain and swelling of right lower leg Procedures US DVT LOWER RIGHT DUP-SCAN XTR VEINS UNILATERAL/LIMITED STUDY Tamika Morris MD [address] [place] [address] [place] [address] Referral ID Status Reason Start Date Expiration Date V isits Requested Visits Authorized [id number] Closed Auto-Generate d Referral 10/31/2023 11/29/2024 1 1 [facility] for referral (narrative)* Diagnostic Procedure Only (Urgent) - Closed Specialty Diagnoses / Procedures Referred By Belgica t Referred To Contact [facility] Diagnoses Pain and swelling of right lower leg Procedures US DVT LOWER RIGHT DUP-SCAN XTR VEINS UNILATERAL/LIMITED STUDY Tamika Morris MD [address] [place] [address] [place] [address] Referral ID Status Reason Start Date Expiration Date V isits Requested Visits Authorized [id number] Closed Auto-Generate d Referral 10/31/2023 11/29/2024 1 1 [facility] for referral (narrative)* Diagnostic Procedure Only (Routine) - New Request Specialty Diagnoses / Procedures Referred By Belgica t Referred To Contact [facility] Diagnoses Screening mammogram for breast cancer Procedures KELLY SCREENING W MINAL SCREENING DIGITAL BREAST TOMOSYNTHESIS BI SCREENING MAMMOGRAPHY BI 2-VIEW BREAST INC Lydia López, JOSEFINA.COMMUNITY DEVELOPMENT COORDINATOR [address] [place] [address] [facility] [address] [place] [address] Referral ID Status Reason Start Date Expiration Date Visits Requested Visits Authorized [id number] New Request Auto-Generat ed Referral 03/05/2024 04/04/2025 1 1 [facility] for referral (narrative)* Outpatient Procedure (Routine) - Authorized Specialty Diagnoses / Procedures Referred By Contac t Referred To [facility] Diagnoses Moderate persistent asthma without complication Procedures NITRIC OXIDE, EXHALED NITRIC OXIDE GAS DETERMINATION Christine Bianchi MD [address] [place] [address] [facility] [address] [place] [address] Referral ID Status Reason Start Date Expiration Date Visits Requested Visits Authorized [id number] Authorized Auto-Generat ed Referral 03/30/2024 04/29/2025 1 1 [facility] for referral (narrative)* Diagnostic Procedure Only (Urgent) - Closed Specialty Diagnoses / Procedures [facility] To Contact [facility] Diagnoses Pain of right upper extremity Procedures XR HUMERUS 2V AP/LAT RIGHT RADEX HUMERUS MINIMUM 2 VIEWS Wanda Phillips APRN.CNP [address] [place] [address] X[facility] Imaging [facility] Referral ID Status Reason Start Date Expiration Date V isits Requested Visits Authorized [id number] Closed Auto-Generate d Referral 12/17/2021 01/16/2023 1 1 [facility] for referral (narrative)No reason for referral information availableWOhioHealth [facility] Work Phone: Reason for visit Narrative* Outpatient Procedure (Routine) - Closed Specialty Diagnoses / Procedures Referred By Contac t Referred To Contact [facility] Diagnoses Screening for colon cancer Procedures COLONOSCOPY SCREENING COLONOSCOPY FLX DX W/COLLJ SPEC WHEN PFRMD Holland Carmichael MD [address] [place] [address] [facility] [address] [place] [address] Referral ID Status Reason Start Date Expiration Date V isits Requested Visits Authorized [id number] Closed Auto-Generate d Referral 09/22/2021 09/22/2022 1 1 [facility] for visit Narrative* Diagnostic Procedure Only (Urgent) - Closed Specialty Diagnoses / Procedures Referred By Contac t Referred To Contact [facility] Diagnoses Pain and swelling of right lower leg Procedures US DVT LOWER RIGHT DUP-SCAN XTR VEINS UNILATERAL/LIMITED STUDY Tamika Morris MD [address] [place] [address] [place] [address] Referral ID Status Reason Start Date Expiration Date V isits Requested Visits Authorized [id number] Closed Auto-Generate d Referral 10/31/2023 11/29/2024 1 1 [facility] for visit Narrative* Diagnostic Procedure Only (Urgent) - Closed Specialty Diagnoses / Procedures Referred By Contac t Referred To Contact XR IMAGING Diagnoses Pain of right upper extremity Procedures XR HUMERUS 2V AP/LAT RIGHT RADEX HUMERUS MINIMUM 2 VIEWS Wanda Phillips APRN.FABIO [address] [place] [address] [place] [address] Referral ID Status Reason Start Date Expiration Date V isits Requested Visits Authorized [id number] Closed Auto-Generate d Referral 12/17/2021 01/16/2023 1 1 [facility] Advance Directives No Advanced Directives Records FoundDocuments on File Type Date Recorded 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 Advance Directive(s) 09/30/2021 12:15 PM Documents on File Type Date Recorded 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 Advance Directive(s) 10/29/2021 7:15 AM Advance Directive(s) 09/30/2021 12:15 PM Documents on File Type Date Recorded 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 Advance Directive(s) 10/29/2021 7:15 AM Advance Directive(s) 09/30/2021 12:15 PM Advance Directive Response Recorded Date/ Time Name of Medical Power of Sales Executive Insurance pam slaughterjohn godinez February 11, 2022 2:28pm Advance Directives Yes March 12, 2016 2:58pm Living Will Yes February 11, 2022 2:28pm Power of Sales Executive Insurance Yes February 11 2:28pm Advance Directive Response Recorded Date/ Time Name of Medical Power of Sales Executive Insurance Elijah Kessinge r July 10, 2022 3:19pm Advance Directives Yes March 12, 2016 1:58pm Living Will Yes July 10, 2 022 3:19pm Power of Sales Executive Insurance Yes July 10, 2022 3:19pm Advance Directive Response Recorded Date/ Time Name of Medical Power of Sales Executive Insurance Elijah Kessinge r July 10, 2022 6:37pm Name of Medical Power of Sales Executive Insurance Elijah Kessinge r July 18, 2022 2:48am Advance Directives Yes March 12, 2016 1:58pm Living Will Yes July 18 2:48am Power of Sales Executive Insurance Yes July 18 023 2:48am Advance Directive Response Recorded Date/ Time Name of Medical Power of Sales Executive Insurance Elijah Kessinge r July 10, 2022 6:37pm Name of Medical Power of Sales Executive Insurance Elijah Kessinge r July 18, 2022 2:48am Name of Medical Power of Sales Executive Insurance Elijah Kessinge r July 31, 2022 7:14pm Advance Directives Yes March 12, 2016 1:58pm Living Will Yes July 31 7:14pm Power of Sales Executive Insurance Yes July 31, 2022 7:14pm Advance Directive Response Recorded Date/ Time Name of Medical Power of Sales Executive Insurance Elijah Kessinge r July 10, 2022 6:37pm Name of Medical Power of Sales Executive Insurance Elijah Kessinge r July 18, 2022 2:48am Name of Medical Power of Sales Executive Insurance Elijah Kessinge r- July 31, 2022 11:29pm Advance Directives Yes March 12, 2016 1:58pm Living Will Yes July 31 11:29pm Power of Sales Executive Insurance Yes July 31, 2022 11:29pm Advance Directive Response Recorded Date/ Time Name of Medical Power of Sales Executive Insurance Elijah Kessinge r July 10, 2022 7:37pm Name of Medical Power of Sales Executive Insurance Elijah Kessinge r July 18, 2022 3:48am Name of Medical Power of Sales Executive Insurance Elijah Kessinge r- August 01, 2022 12:29am Name of Medical Power of Sales Executive Insurance ELIJAH KESSINGE R October 01, 2022 2:19pm Advance Directives Yes March 12, 2016 2:58pm Living Will Yes October 01, 2022 2:19pm Power of Sales Executive Insurance Yes October 01 2:19pm Advance Directive Response Recorded Date/ Time Name of Medical Power of Sales Executive Insurance Elijah Kessinge r July 10, 2022 7:37pm Name of Medical Power of Sales Executive Insurance Elijah Kessinge r July 18, 2022 3:48am Name of Medical Power of Sales Executive Insurance Elijah Kessinge r- August 01, 2022 12:29am Name of Medical Power of Sales Executive Insurance ELIJAH KESSINGE R October 01, 2022 2:19pm Name of Medical Power of Sales Executive Insurance ROCYE KESSINGE R October 11, 2022 4:15pm Advance Directives Yes March 12, 2016 2:58pm Living Will Yes October 11, 2022 4:15pm Power of Sales Executive Insurance Yes October 11 4:15pm Advance Directive Response Recorded Date/ Time Name of Medical Power of Sales Executive Insurance Elijah Kessinge r July 10, 2022 7:37pm Name of Medical Power of Sales Executive Insurance Elijah Kessinge r July 18, 2022 3:48am Name of Medical Power of Sales Executive Insurance Elijah Kessinge r- August 01, 2022 12:29am Name of Medical Power of Sales Executive Insurance ELIJAH KESSINGE R October 01, 2022 2:19pm Name of Medical Power of Sales Executive Insurance ROCYE KESSINGE R October 11, 2022 4:15pm Name of Medical Power of Sales Executive Insurance November 04, 2022 6:03pm Advance Directives Yes March 12, 2016 2:58pm Living Will Yes November 04, 2022 6:03pm Power of Sales Executive Insurance Yes November 04 6:03pm Advance Directive Response Recorded Date/ Time Name of Medical Power of Sales Executive Insurance ELIJAH KESSINGE R October 01, 2022 2:19pm Name of Medical Power of Sales Executive Insurance ROCYE KESSINGE R October 11, 2022 4:15pm Name of Medical Power of Sales Executive Insurance November 04, 2022 6:03pm Advance Directives Yes March 12, 2016 2:58pm Living Will Yes November 04, 2022 6:03pm Power of Sales Executive Insurance Yes November 04 6:03pm Advance Directive Response Recorded Date/ Time Name of Medical Power of Sales Executive Insurance November 04, 2022 6:03pm Advance Directives Yes March 12, 2016 2:58pm Living Will No February 13, 2023 6:15pm Power of Sales Executive Insurance No February 13 6:15pm Advance Directive Response Recorded Date/ Time Advance Directives Yes March 12, 2016 2:58pm Living Will No February 13, 2023 6:15pm Power of Sales Executive Insurance No February 13 6:15pm Advance Directive Response Recorded Date/ Time Name of Medical Power of Sales Executive Insurance September 16, 2023 6:19pm Advance Directives Yes March 12, 2016 1:58pm Living Will Yes September 16, 2023 6:19pm Power of Sales Executive Insurance Yes September 15 6:19pm Advance Directive Response Recorded Date/ Time Name of Medical Power of Sales Executive Insurance . September 21, 2023 1:29am Advance Directives Yes March 12, 2016 1:58pm Living Will Yes September 21, 2023 1:29am Power of Sales Executive Insurance Yes September 20 1:29am Name of Medical Power of Sales Executive Insurance September 16, 2023 6:19pm Advance Directive Response Recorded Date/ Time Name of Medical Power of Sales Executive Insurance . September 21, 2023 2:29am Name of Medical Power of Sales Executive Insurance PAM GREGORY October 01, 2023 3:17pm Advance Directives Yes March 12, 2016 2:58pm Living Will Yes October 01, 2023 3:17pm Power of Sales Executive Insurance Yes September 30 3:17pm Name of Medical Power of Sales Executive Insurance September 16, 2023 7:19pm Advance Directive Response Recorded Date/ Time Name of Medical Power of Sales Executive Insurance . September 21, 2023 2:29am Name of Medical Power of Sales Executive Insurance PAM GREGORY October 01, 2023 3:17pm Name of Medical Power of Sales Executive Insurance September 16, 2023 7:19pm Name of Medical Power of Sales Executive Insurance recalled October 28, 2023 7:21pm Advance Directives Yes March 12, 2016 2:58pm Living Will Yes October 28, 2023 7:21pm Power of Sales Executive Insurance Yes October 27 7:21pm Advance Directive Response Recorded Date/ Time Name of Medical Power of Sales Executive Insurance . September 21, 2023 2:29am Name of Medical Power of Sales Executive Insurance PAM GREGORY October 01, 2023 3:17pm Name of Medical Power of Sales Executive Insurance or son - pt unsure November 06, 2023 7:49pm Advance Directives Yes March 12, 2016 2:58pm Living Will Yes November 06, 2023 7:49pm Power of Sales Executive Insurance Yes November 05 7:49pm Name of Medical Power of Sales Executive Insurance September 16, 2023 7:19pm Name of Medical Power of Sales Executive Insurance recalled October 28, 2023 7:21pm Advance Directive Response Recorded Date/ Time Name of Medical Power of Sales Executive Insurance . September 21, 2023 2:29am Name of Medical Power of Sales Executive Insurance PAM GREGORY October 01, 2023 3:17pm Name of Medical Power of Sales Executive Insurance or son - pt unsure November 06, 2023 7:49pm Name of Medical Power of Sales Executive Insurance September 16, 2023 7:19pm Name of Medical Power of Sales Executive Insurance recalled October 28, 2023 7:21pm Name of Medical Power of Sales Executive Insurance November 07, 2023 4:30pm Advance Directives Yes March 12, 2016 2:58pm Living Will Yes November 07, 2023 4:30pm Power of Sales Executive Insurance Yes November 06 4:30pm Advance Directive Response Recorded Date/ Time Name of Medical Power of Sales Executive Insurance . September 21, 2023 2:29am Name of Medical Power of Sales Executive Insurance PAM GREGORY October 01, 2023 3:17pm Name of Medical Power of Sales Executive Insurance or son - pt unsure November 06, 2023 7:49pm Name of Medical Power of Sales Executive Insurance September 16, 2023 7:19pm Name of Medical Power of Sales Executive Insurance recalled October 28, 2023 7:21pm Name of Medical Power of Sales Executive Insurance November 07, 2023 4:30pm Name of Medical Power of Sales Executive Insurance elijah kidd November 28, 2023 8:08pm Advance Directives Yes March 12, 2016 2:58pm Living Will Yes November 28, 2023 8 :08pm Power of Sales Executive Insurance Yes November 28, 2023 8:08pm Documents on File Type Date Recorded 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 Advance Directive(s) 10/04/2024 2:00 PM Advance Directive Response Recorded Date/ Time Living Will Yes May 25 4:47am Power of Sales Executive Insurance Yes May 25, 2024 4:47am Name of Medical Power of Sales Executive Insurance May 25, 2024 4:47am Living Will Yes May 27 6:39pm Power of Sales Executive Insurance Yes May 27, 2024 6:39pm Name of Medical Power of Sales Executive Insurance May 27, 2024 6:39pm Living Will No June 08 5:00pm Power of Sales Executive Insurance No June 08, 2024 5:00pm Living Will Yes July 02, 10:07pm Power of Sales Executive Insurance Yes July 02, 2024 10:07pm Name of Medical Power of Sales Executive Insurance elijah mendoza r July 02, 2024 10:07pm Living Will Yes July 28 8:34pm Power of Sales Executive Insurance Yes July 28, 2024 8:34pm Name of Medical Power of Sales Executive Insurance July 28, 2024 8:34pm Living Will Yes September 20, 2024 7:05pm Power of Sales Executive Insurance Yes September 20 7:05pm Name of Medical Power of Sales Executive Insurance [place] September 20, 2024 7:05pm Advance Directives Yes March 12, 2016 1:58pm Advance Directive Response Recorded Date/ Time Living Will No September 21, 2024 6:25am Power of Sales Executive Insurance No September 21 6:25am Living Will Yes May 25 4:47am Power of Sales Executive Insurance Yes May 25, 2024 4:47am Name of Medical Power of Sales Executive Insurance May 25, 2024 4:47am Living Will Yes May 27 6:39pm Power of Sales Executive Insurance Yes May 27, 2024 6:39pm Name of Medical Power of Sales Executive Insurance May 27, 2024 6:39pm Living Will No June 08 024 5:00pm Power of Sales Executive Insurance No June 08, 2024 5:00pm Living Will Yes July 02, 024 10:07pm Power of Sales Executive Insurance Yes July 02, 2024 10:07pm Name of Medical Power of Sales Executive Insurance elijah mendoza r July 02, 2024 10:07pm Living Will Yes July 28 8:34pm Power of Sales Executive Insurance Yes July 28, 2024 8:34pm Name of Medical Power of Sales Executive Insurance July 28, 2024 8:34pm Living Will Yes September 20, 2024 7:05pm Power of Sales Executive Insurance Yes September 20 7:05pm Name of Medical Power of Sales Executive Insurance [place] September 20, 2024 7:05pm Advance Directives Yes March 12, 2016 1:58pm Advance Directive Response Recorded Date/ Time Living Will No September 21, 2024 7:25am Power of Sales Executive Insurance No September 21 7:25am Living Will Yes May 27 7:39pm Power of Sales Executive Insurance Yes May 27, 2024 7:39pm Name of Medical Power of Sales Executive Insurance May 27, 2024 7:39pm Living Will No June 08 6:00pm Power of Sales Executive Insurance No June 08, 2024 6:00pm Living Will Yes July 02 11:07pm Power of Sales Executive Insurance Yes July 02, 2024 11:07pm Name of Medical Power of Sales Executive Insurance elijah mendoza r July 02, 2024 11:07pm Living Will Yes July 28 9:34pm Power of Sales Executive Insurance Yes July 28, 2024 9:34pm Name of Medical Power of Sales Executive Insurance July 28, 2024 9:34pm Living Will Yes September 20, 2024 8:05pm Power of Sales Executive Insurance Yes September 20 8:05pm Name of Medical Power of Sales Executive Insurance [place] September 20, 2024 8:05pm Living Will No September 23, 2024 9:09pm Power of Sales Executive Insurance No September 23 9:09pm Advance Directives Yes March 12, 2016 2:58pm Documents on File Type Date Recorded 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 No September 21, 2024 7:25am Living Will Yes July 02 11:07pm Do you have a Healthcare Pow er of Sales Executive Insurance? Yes July 02, 2024 11:07pm Name of Medical Power of Sales Executive Insurance elijah mendoza r July 02, 2024 11:07pm Living Will Yes July 28 9:34pm Do you have a Healthcare Pow er of Sales Executive Insurance? Yes July 28, 2024 9:34pm Name of Medical Power of Sales Executive Insurance July 28, 2024 9:34pm Living Will Yes September 20, 2024 8:05pm Do you have a Healthcare Pow er of Sales Executive Insurance? Yes September 20, 2024 8:05pm Name of Medical Power of Sales Executive Insurance [place] September 20, 2024 8:05pm Living Will No September 23, 2024 9:09pm Do you have a Healthcare Pow er of Sales Executive Insurance? No September 23, 2024 9:09pm Living Will No October 19, 2024 9:41am Do you have a Healthcare Pow er of Sales Executive Insurance? No October 19, 2024 9:41am Advance Directives Yes March 12, 2016 2:58pm Advance Directive Response Recorded Date/ Time Living Will No September 21, 2024 7:25am Do you have a Healthcare Pow er of Sales Executive Insurance? No September 21, 2024 7:25am Living Will Yes October 24, 2024 8:44pm Do you have a Healthcare Pow er of Sales Executive Insurance? Yes October 24, 2024 8:44pm Name of Medical Power of Sales Executive Insurance Elijah October 24, 2024 8:44pm Living Will Yes July 02 11:07pm Do you have a Healthcare Pow er of Sales Executive Insurance? Yes July 02, 2024 11:07pm Name of Medical Power of Sales Executive Insurance elijah godinez July 02, 2024 11:07pm Living Will Yes July 28 9:34pm Do you have a Healthcare Pow er of Sales Executive Insurance? Yes July 28, 2024 9:34pm Name of Medical Power of Sales Executive Insurance July 28, 2024 9:34pm Living Will Yes September 20, 2024 8:05pm Do you have a Healthcare Pow er of Sales Executive Insurance? Yes September 20, 2024 8:05pm Name of Medical Power of Sales Executive Insurance [place] September 20, 2024 8:05pm Living Will No September 23, 2024 9:09pm Do you have a Healthcare Pow er of Sales Executive Insurance? No September 23, 2024 9:09pm Living Will No October 19, 2024 9:41am Do you have a Healthcare Pow er of Sales Executive Insurance? No October 19, 2024 9:41am Advance Directives Yes March 12, 2016 2:58pm Advance Directive Response Recorded Date/ Time Living Will No September 21, 2024 7:25am Do you have a Healthcare Power of Sales Executive Insurance? No September 21, 2024 7:25am Living Will Yes October 24, 2024 8:44pm Do you have a Healthcare Power of Sales Executive Insurance? Yes October 24, 2024 8:44pm Name of Medical Power of Sales Executive Insurance Elijah October 24, 2024 8:44pm Living Will Yes November 03, 2024 6:56am Do you have a Healthcare Power of Sales Executive Insurance? Yes November 03, 2024 6:56am Name of Medical Power of Sales Executive Insurance Pt unaware November 03, 2024 6:56am Living Will Yes July 28 9:34pm Do you have a Healthcare Power of Sales Executive Insurance? Yes July 28, 2024 9:34pm Name of Medical Power of Sales Executive Insurance July 28, 2024 9:34pm Living Will Yes September 20, 2024 8:05pm Do you have a Healthcare Power of Sales Executive Insurance? Yes September 20, 2024 8:05pm Name of Medical Power of Sales Executive Insurance [place] September 20, 2024 8:05pm Living Will No September 23, 2024 9:09pm Do you have a Healthcare Power of Sales Executive Insurance? No September 23, 2024 9:09pm Living Will No October 19, 2024 9:41am Do you have a Healthcare Power of Sales Executive Insurance? No October 19, 2024 9:41am Advance Directives Yes March 12, 2016 2:58pm Advance Directive Response Recorded Date/ Time Living Will No September 21, 2024 7:25am Do you have a Healthcare Power of Sales Executive Insurance? No September 21, 2024 7:25am Living Will Yes October 24, 2024 8:44pm Do you have a Healthcare Power of Sales Executive Insurance? Yes October 24, 2024 8:44pm Name of Medical Power of Sales Executive Insurance Elijah October 24, 2024 8:44pm Living Will Yes November 03, 2024 6:56am Do you have a Healthcare Power of Sales Executive Insurance? Yes November 03, 2024 6:56am Name of Medical Power of Sales Executive Insurance Pt unaware November 03, 2024 6:56am Do you have a Healthcare Power of Sales Executive Insurance? Yes November 29, 2024 9:20pm Name of Medical Power of Sales Executive Insurance November 29, 2024 9:20pm Living Will Yes September 20, 2024 8:05pm Do you have a Healthcare Power of Sales Executive Insurance? Yes September 20, 2024 8:05pm Name of Medical Power of Sales Executive Insurance [place] September 20, 2024 8:05pm Living Will No September 23, 2024 9:09pm Do you have a Healthcare Power of Sales Executive Insurance? No September 23, 2024 9:09pm Living Will No October 19, 2024 9:41am Do you have a Healthcare Power of Sales Executive Insurance? No October 19, 2024 9:41am Advance Directives Yes March 12, 2016 2:58pm Advance Directive Response Recorded Date/ Time Living Will No September 21, 2024 7:25am Do you have a Healthcare Power of Sales Executive Insurance? No September 21, 2024 7:25am Living Will Yes October 24, 2024 8:44pm Do you have a Healthcare Power of Sales Executive Insurance? Yes October 24, 2024 8:44pm Name of Medical Power of Sales Executive Insurance Elijah October 24, 2024 8:44pm Living Will Yes November 03, 2024 6:56am Do you have a Healthcare Power of Sales Executive Insurance? Yes November 03, 2024 6:56am Name of Medical Power of Sales Executive Insurance Pt unaware November 03, 2024 6:56am Do you have a Healthcare Power of Sales Executive Insurance? Yes November 29, 2024 9:20pm Name of Medical Power of Sales Executive Insurance November 29, 2024 9:20pm Do you have a Healthcare Power of Sales Executive Insurance? No December 19, 2024 4:57pm Living Will Yes September 20, 2024 8:05pm Do you have a Healthcare Power of Sales Executive Insurance? Yes September 20, 2024 8:05pm Name of Medical Power of Sales Executive Insurance [place] September 20, 2024 8:05pm Living Will No September 23, 2024 9:09pm Do you have a Healthcare Power of Sales Executive Insurance? No September 23, 2024 9:09pm Living Will No October 19, 2024 9:41am Do you have a Healthcare Power of Sales Executive Insurance? No October 19, 2024 9:41am Advance Directives Yes March 12, 2016 2:58pm Advance Directive Response Recorded Date/ Time Living Will No September 21, 2024 7:25am Do you have a Healthcare Power of Sales Executive Insurance? No September 21, 2024 7:25am Living Will Yes October 24, 2024 8:44pm Do you have a Healthcare Power of Sales Executive Insurance? Yes October 24, 2024 8:44pm Name of Medical Power of Sales Executive Insurance Elijah October 24, 2024 8:44pm Living Will Yes November 03, 2024 6:56am Do you have a Healthcare Power of Sales Executive Insurance? Yes November 03, 2024 6:56am Name of Medical Power of Sales Executive Insurance Pt unaware November 03, 2024 6:56am Do you have a Healthcare Power of Sales Executive Insurance? Yes November 29, 2024 9:20pm Name of Medical Power of Sales Executive Insurance November 29, 2024 9:20pm Do you have a Healthcare Power of Sales Executive Insurance? No December 19, 2024 4:57pm Do you have a Healthcare Power of Sales Executive Insurance? Yes January 04, 2025 8:00pm Living Will Yes September 20, 2024 8:05pm Do you have a Healthcare Power of Sales Executive Insurance? Yes September 20, 2024 8:05pm Name of Medical Power of Sales Executive Insurance [place] September 20, 2024 8:05pm Living Will No September 23, 2024 9:09pm Do you have a Healthcare Power of Sales Executive Insurance? No September 23, 2024 9:09pm Living Will No October 19, 2024 9:41am Do you have a Healthcare Power of Sales Executive Insurance? No October 19, 2024 9:41am Advance Directives Yes March 12, 2016 2:58pm Advance Directive Response Recorded Date/ Time Living Will Yes October 24, 2024 8:44pm Do you have a Healthcare Power of Sales Executive Insurance? Yes October 24, 2024 8:44pm Name of Medical Power of Sales Executive Insurance Elijah October 24, 2024 8:44pm Living Will Yes November 03, 2024 6:56am Do you have a Healthcare Power of Sales Executive Insurance? Yes November 03, 2024 6:56am Name of Medical Power of Sales Executive Insurance Pt unaware November 03, 2024 6:56am Do you have a Healthcare Power of Sales Executive Insurance? Yes November 29, 2024 9:20pm Name of Medical Power of Sales Executive Insurance November 29, 2024 9:20pm Do you have a Healthcare Power of Sales Executive Insurance? No December 19, 2024 4:57pm Do you have a Healthcare Power of Sales Executive Insurance? Yes January 04, 2025 8:00pm Living Will No October 19, 2024 9:41am Do you have a Healthcare Power of Sales Executive Insurance? No October 19, 2024 9:41am Do you have a Healthcare Power of Sales Executive Insurance? Yes January 25, 2025 8:49pm Advance Directives Yes March 12, 2016 2:58pm [...] screening Procedures CONSULT TO GENERAL SURGERY OFFICE/OUTPATIENT [facility] 60-74 MINUTES Octavio Reza MD [address] [place] [address] Holland Carmichael MD [address] [place] [id number] Referral ID Status Reason Start Date Expiration Date Visits Requested Visits Authorized [id number] Pending Review PCP Requested Referral 09/11/2021 09/11/2022 1 1 Specialty Diagnoses / Procedures Referred By Contac t Referred To Contact Orthopedics Diagnoses Pain of right upper extremity Procedures CONSULT PANEL TO ORTHOPAEDICS OFFICE/OUTPATIENT [facility] 60-74 MINUTES Wanda Phillips APRN.LOCKER ATTENDANT [address] [id number] Referral ID Status Reason Start Date Expiration Date Visits Requested Visits Authorized [id number] Pending Review PCP Requested Referral 12/17/2021 12/17/2022 1 1 Specialty Diagnoses / Procedures Referred By Contac t Referred To Contact XR IMAGING Diagnoses Pain of right upper extremity Procedures XR HUMERUS 2V AP/LAT RIGHT RADEX HUMERUS MINIMUM 2 VIEWS Wanda Phillips APRN.LOCKER ATTENDANT [address] [place] [address] Xr Imaging Referral ID Status Reason Start Date Expiration Date V isits Requested Visits Authorized [id number] Closed Auto-Generate d Referral 12/17/2021 01/16/2023 1 1 Referral ID Status Reason Start Date Expiration Date V isits Requested Visits Authorized [id number] Closed Auto-Generate d Referral 12/17/2021 01/16/2023 1 1 Specialty Diagnoses / Procedures Referred By Contac t Referred To Contact Octavio Reza MD [address] [place] [address] Referral ID Status Reason Start Date Expiration Date Visits Re quested Visits Authorized [id number] Closed 1 1 Referral ID Status Reason Start Date Expiration Date Visits Re quested Visits Authorized [id number] Closed 1 1 Specialty Diagnoses / Procedures Referred By Contac t Referred To Contact Rheumatology Diagnoses Polyarthralgia Pain in finger of both hands Elevated C-reactive protein (CRP) Elevated sedimentation rate Procedures CONSULT TO RHEUM/IMMUN DISEASE OFFICE/OUTPATIENT [facility] 60 MINUTES Lydia Grande, SANDSTONE SPLITTER.COMMUNITY DEVELOPMENT COORDINATOR [address] [place] [address] Referral ID Status Reason Start Date Expiration Date Visits Requested Visits Authorized [id number] Authorized PCP Requested Referral 09/05/2023 09/04/2024 1 1 Specialty Diagnoses / Procedures Referred By Contac t Referred To Contact Endocrinology Diagnoses 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) Procedures CONSULT TO ENDOCRINOLOGY OFFICE/OUTPATIENT [facility] 60 MINUTES Lydia Grande, SANDSTONE SPLITTER.COMMUNITY DEVELOPMENT COORDINATOR [address] [place] [address] Referral ID Status Reason Start Date Expiration Date Visits Requested Visits Authorized [id number] Authorized PCP Requested Referral 11/08/2023 11/07/2024 1 1 Specialty Diagnoses / Procedures Referred By Contac t Referred To Contact Diagnoses Diabetes mellitus type 1, controlled, without complications (HCC) Procedures CONSULT TO DIABETES EDUCATION DSME/MNT MEDICAL NUTRITION ASSMT&IVNTJ INDIV EACH 15 [place] MEDICAL NUTRITION ASSMT&IVNTJ INDIV EACH 15 [place] MEDICAL NUTRITION ASSMT&IVNTJ INDIV EACH 15 [place] MEDICAL NUTRITION ASSMT&IVNTJ INDIV EACH 15 [place] Renetta Mcgee, SANDSTONE SPLITTER.LOCKER ATTENDANT [address] [place] [address] Referral ID Status Reason Start Date Expiration Date Visits Requested Visits Authorized [id number] Authorized PCP Requested Referral 12/07/2023 12/06/2024 1 1 Specialty Diagnoses / Procedures Referred By Contac t Referred To Contact Diagnoses Diabetes mellitus type 1, controlled, without complications (HCC) Procedures ENDOCRINOLOGY DIETITIAN VISIT (MNT) MEDICAL NUTRITION ASSMT&IVNTJ INDIV EACH 15 [place] MEDICAL NUTRITION ASSMT&IVNTJ INDIV EACH 15 [place] MEDICAL NUTRITION ASSMT&IVNTJ INDIV EACH 15 [place] MEDICAL NUTRITION ASSMT&IVNTJ INDIV EACH 15 [place] Renetta Mcgee APRN.LOCKER ATTENDANT [address] [id number] Referral ID Status Reason Start Date Expiration Date Visits Requested Visits Authorized [id number] Authorized PCP Requested Referral 02/15/2024 02/14/2025 1 1 Specialty Diagnoses / Procedures Referred By Contac t Referred To Contact Diagnoses THAIS (obstructive sleep apnea) Procedures CONSULT TO SLEEP MEDICINE - ADULT OFFICE/OUTPATIENT [facility] 60 MINUTES Rehana Osorio APRN.LOCKER ATTENDANT [address] [place] [id number] Referral ID Status Reason Start Date Expiration Date Visits Requested Visits Authorized [id number] Authorized PCP Requested Referral 02/13/2024 02/12/2025 1 1 Specialty Diagnoses / Procedures Referred By Contac t Referred To Contact Diagnoses 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) Davon Wolfe APRN.LOCKER ATTENDANT [address] [place] [phone] Referral ID Status Reason Start Date Expiration Date Visits Re quested Visits Authorized [id number] Closed 1 1 Specialty Diagnoses / Procedures Referred By Contac t Referred To Contact Diagnoses 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) Renetta Mcgee APRN.LOCKER ATTENDANT [address] [place] [id number] Referral ID Status Reason Start Date Expiration Date Visits Re quested Visits Authorized [id number] Closed 1 1 Specialty Diagnoses / Procedures Referred By Contac t Referred To Contact Diagnoses Severe persistent asthma without complication Octavio Reza MD [address] [place] [phone] Referral ID Status Reason Start Date Expiration Date Visits Re quested Visits Authorized [id number] Closed 1 1 Chief Complaint and Reason [...] Complaint CHEST PAIN PALPITATIONS CHEST PAIN S/P [facility] ED 11-04-22 CHEST PAIN Reason for Visit CRAWLEY (dyspnea on exer tion) Chief Complaint CHEST PAIN S/P [facility] ED 11-04-22 CHEST PAIN REACTION Reason for Visit CRAWLEY (dyspnea on exer tion) Chief Complaint CHEST PAIN REACTION SCREENING Chief Complaint palpitations palpitations 48 HOUR HALTER MONITER Chief Complaint palpitations palpitations 48 HOUR HALTER MONITER palpitations Chief Complaint palpitations 48 HOUR HALTER MONITER PALPS, DYSRHYTHMIA palpitations S/P [facility] 03/ COUGH Reason for Visit Essential hypertensi on Hyperlipidemia Paroxysmal SVT (supraventricular tachycardia) Chief Complaint palpitations 48 HOUR HALTER MONITER PALPS, DYSRHYTHMIA palpitations S/P [facility] 03/06 COUGH HYPERGLYCEMIA Reason for Visit Essential hypertensi on Hyperlipidemia Paroxysmal SVT (supraventricular tachycardia) Chief Complaint palpitations 48 HOUR HALTER MONITER PALPS, DYSRHYTHMIA palpitations S/P [facility] 03/06 COUGH HYPERGLYCEMIA PALPITATIONS Reason for Visit Essential hypertensi on Hyperlipidemia Paroxysmal SVT (supraventricular tachycardia) Chief Complaint palpitations 48 HOUR HALTER MONITER PALPS, DYSRHYTHMIA palpitations S/P [facility] 03/06 COUGH HYPERGLYCEMIA PALPITATIONS blood sugar issues Reason for Visit Essential hypertensi on Hyperlipidemia Paroxysmal SVT (supraventricular tachycardia) Chief Complaint palpitations 48 HOUR HALTER MONITER PALPS, DYSRHYTHMIA palpitations S/P [facility] 03/06 COUGH HYPERGLYCEMIA PALPITATIONS blood sugar issues [...] 8:05a m THAIS (obstructive sleep apnea) November 15, 025 8:05am Essential hypertension November 15, 2024 8:0 5am Paroxysmal SVT (supraventricular tachyca rdia) November 15, 2024 8:05am Abnormal stress test January 14, 2025 9:3 7am THAIS (obstructive sleep apnea) January 14, 2025 9:37am Essential hypertension January 14, 2025 9 :37am Paroxysmal SVT (supraventricular tachyca rdia) January 14, 2025 9:37am Chief Complaint Admit Date leg Gaye 4th, 2025 9:27 am LOWER EXT October 24, 2024 8:22 pm lower extremity check November 03, 2024 6 :54am LLE PAIN November 03, 2024 10: 04am 6 M FU November 15, 2024 8:05am HYPERGLYCEMIA November 29, 2024 9:12p m hyperglycemia December 19, 2024 3:47p m cp January 04, 2025 7:16 pm S/P 6/20 CP/SOB/Dizziness January 14 9:37am palpitations January 25, 2025 8:38 pm Family History No Family History Records Found [...] or prosecute any alcohol or drug abuse patient.[facility] CenterIn the event this information is protected by the Federal Confidentiality of Alcohol and Drug Abuse Patient Records regulations: The Federal rules restrict any use of the information to criminally investigate or prosecute any alcohol or drug abuse patient.[facility] CenterIn the event this information is protected by the Federal Confidentiality of Alcohol and Drug Abuse Patient Records regulations: The Federal rules restrict any use of the information to criminally investigate or prosecute any alcohol or drug abuse patient.[facility] CenterIn the event this information is protected by the Federal Confidentiality of Alcohol and Drug Abuse Patient Records regulations: The Federal rules restrict any use of the information to criminally investigate or prosecute any alcohol or drug abuse patient.[facility] CenterIn the event this information is protected by the Federal Confidentiality of Alcohol and Drug Abuse Patient Records regulations: The Federal rules restrict any use of the information to criminally investigate or prosecute any alcohol or drug abuse patient.[facility] CenterIn the event this information is protected by the Federal Confidentiality of Alcohol and Drug Abuse Patient Records regulations: The Federal rules restrict any use of the information to criminally investigate or prosecute any alcohol or drug abuse patient.[facility] CenterIn the event this information is protected by the Federal Confidentiality of Alcohol and Drug Abuse Patient Records regulations: The Federal rules restrict any use of the information to criminally investigate or prosecute any alcohol or drug abuse patient.[facility] CenterIn the event this information is protected by the Federal Confidentiality of Alcohol and Drug Abuse Patient Records regulations: The Federal rules restrict any use of the information to criminally investigate or prosecute any alcohol or drug abuse patient.[facility] CenterIn the event this information is protected by the Federal Confidentiality of Alcohol and Drug Abuse Patient Records regulations: The Federal rules restrict any use of the information to criminally investigate or prosecute any alcohol or drug abuse patient.[facility] CenterIn the event this information is protected by the Federal Confidentiality of Alcohol and Drug Abuse Patient Records regulations: The Federal rules restrict any use of the information to criminally investigate or prosecute any alcohol or drug abuse patient.[facility] CenterIn the event this information is protected by the Federal Confidentiality of Alcohol and Drug Abuse Patient Records regulations: The Federal rules restrict any use of the information to criminally investigate or prosecute any alcohol or drug abuse patient.[facility] CenterIn the event this information is protected by the Federal Confidentiality of Alcohol and Drug Abuse Patient Records regulations: The Federal rules restrict any use of the information to criminally investigate or prosecute any alcohol or drug abuse patient.[facility] CenterIn the event this information is protected by the Federal Confidentiality of Alcohol and Drug Abuse Patient Records regulations: The Federal rules restrict any use of the information to criminally investigate or prosecute any alcohol or drug abuse patient.[facility] CenterIn the event this information is protected by the Federal Confidentiality of Alcohol and Drug Abuse Patient Records regulations: The Federal rules restrict any use of the information to criminally investigate or prosecute any alcohol or drug abuse patient.[facility] CenterIn the event this information is protected by the Federal Confidentiality of Alcohol and Drug Abuse Patient Records regulations: The Federal rules restrict any use of the information to criminally investigate or prosecute any alcohol or drug abuse patient.[facility] CenterIn the event this information is protected by the Federal Confidentiality of Alcohol and Drug Abuse Patient Records regulations: The Federal rules restrict any use of the information to criminally investigate or prosecute any alcohol or drug abuse patient.[facility] CenterIn the event this information is protected by the Federal Confidentiality of Alcohol and Drug Abuse Patient Records regulations: The Federal rules restrict any use of the information to criminally investigate or prosecute any alcohol or drug abuse patient.[facility] CenterIn the event this information is protected by the Federal Confidentiality of Alcohol and Drug Abuse Patient Records regulations: The Federal rules restrict any use of the information to criminally investigate or prosecute any alcohol or drug abuse patient.[facility] CenterIn the event this information is protected by the Federal Confidentiality of Alcohol and Drug Abuse Patient Records regulations: The Federal rules restrict any use of the information to criminally investigate or prosecute any alcohol or drug abuse patient.[facility] CenterIn the event this information is protected by the Federal Confidentiality of Alcohol and Drug Abuse Patient Records regulations: The Federal rules restrict any use of the information to criminally investigate or prosecute any alcohol or drug abuse patient.[facility] CenterIn the event this information is protected by the Federal Confidentiality of Alcohol and Drug Abuse Patient Records regulations: The Federal rules restrict any use of the information to criminally investigate or prosecute any alcohol or drug abuse patient.[facility] CenterIn the event this information is protected by the Federal Confidentiality of Alcohol and Drug Abuse Patient Records regulations: The Federal rules restrict any use of the information to criminally investigate or prosecute any alcohol or drug abuse patient.[facility] CenterIn the event this information is protected by the Federal Confidentiality of Alcohol and Drug Abuse Patient Records regulations: The Federal rules restrict any use of the information to criminally investigate or prosecute any alcohol or drug abuse patient.[facility] CenterIn the event this information is protected by the Federal Confidentiality of Alcohol and Drug Abuse Patient Records regulations: The Federal rules restrict any use of the information to criminally investigate or prosecute any alcohol or drug abuse patient.[facility] CenterIn the event this information is protected by the Federal Confidentiality of Alcohol and Drug Abuse Patient Records regulations: The Federal rules restrict any use of the information to criminally investigate or prosecute any alcohol or drug abuse patient.[facility] CenterIn the event this information is protected by the Federal Confidentiality of Alcohol and Drug Abuse Patient Records regulations: The Federal rules restrict any use of the information to criminally investigate or prosecute any alcohol or drug abuse patient.[facility] CenterIn the event this information is protected by the Federal Confidentiality of Alcohol and Drug Abuse Patient Records regulations: The Federal rules restrict any use of the information to criminally investigate or prosecute any alcohol or drug abuse patient.[facility] CenterIn the event this information is protected by the Federal Confidentiality of Alcohol and Drug Abuse Patient Records regulations: The Federal rules restrict any use of the information to criminally investigate or prosecute any alcohol or drug abuse patient.[facility] CenterIn the event this information is protected by the Federal Confidentiality of Alcohol and Drug Abuse Patient Records regulations: The Federal rules restrict any use of the information to criminally investigate or prosecute any alcohol or drug abuse patient.[facility] CenterIn the event this information is protected by the Federal Confidentiality of Alcohol and Drug Abuse Patient Records regulations: The Federal rules restrict any use of the information to criminally investigate or prosecute any alcohol or drug abuse patient.[facility] CenterIn the event this information is protected by the Federal Confidentiality of Alcohol and Drug Abuse Patient Records regulations: The Federal rules restrict any use of the information to criminally investigate or prosecute any alcohol or drug abuse patient.[facility] CenterIn the event this information is protected by the Federal Confidentiality of Alcohol and Drug Abuse Patient Records regulations: The Federal rules restrict any use of the information to criminally investigate or prosecute any alcohol or drug abuse patient.[facility] CenterIn the event this information is protected by the Federal Confidentiality of Alcohol and Drug Abuse Patient Records regulations: The Federal rules restrict any use of the information to criminally investigate or prosecute any alcohol or drug abuse patient.[facility] CenterIn the event this information is protected by the Federal Confidentiality of Alcohol and Drug Abuse Patient Records regulations: The Federal rules restrict any use of the information to criminally investigate or prosecute any alcohol or drug abuse patient.[facility] CenterIn the event this information is protected by the Federal Confidentiality of Alcohol and Drug Abuse Patient Records regulations: The Federal rules restrict any use of the information to criminally investigate or prosecute any alcohol or drug abuse patient.[facility] CenterIn the event this information is protected by the Federal Confidentiality of Alcohol and Drug Abuse Patient Records regulations: The Federal rules restrict any use of the information to criminally investigate or prosecute any alcohol or drug abuse patient.[facility] CenterIn the event this information is protected by the Federal Confidentiality of Alcohol and Drug Abuse Patient Records regulations: The Federal rules restrict any use of the information to criminally investigate or prosecute any alcohol or drug abuse patient.[facility] CenterIn the event this information is protected by the Federal Confidentiality of Alcohol and Drug Abuse Patient Records regulations: The Federal rules restrict any use of the information to criminally investigate or prosecute any alcohol or drug abuse patient.[facility] CenterIn the event this information is protected by the Federal Confidentiality of Alcohol and Drug Abuse Patient Records regulations: The Federal rules restrict any use of the information to criminally investigate or prosecute any alcohol or drug abuse patient.[facility] CenterIn the event this information is protected by the Federal Confidentiality of Alcohol and Drug Abuse Patient Records regulations: The Federal rules restrict any use of the information to criminally investigate or prosecute any alcohol or drug abuse patient.[facility] CenterIn the event this information is protected by the Federal Confidentiality of Alcohol and Drug Abuse Patient Records regulations: The Federal rules restrict any use of the information to criminally investigate or prosecute any alcohol or drug abuse patient.[facility] CenterIn the event this information is protected by the Federal Confidentiality of Alcohol and Drug Abuse Patient Records regulations: The Federal rules restrict any use of the information to criminally investigate or prosecute any alcohol or drug abuse patient.[facility] CenterIn the event this information is protected by the Federal Confidentiality of Alcohol and Drug Abuse Patient Records regulations: The Federal rules restrict any use of the information to criminally investigate or prosecute any alcohol or drug abuse patient.[facility] CenterIn the event this information is protected by the Federal Confidentiality of Alcohol and Drug Abuse Patient Records regulations: The Federal rules restrict any use of the information to criminally investigate or prosecute any alcohol or drug abuse patient.[facility] CenterIn the event this information is protected by the Federal Confidentiality of Alcohol and Drug Abuse Patient Records regulations: The Federal rules restrict any use of the information to criminally investigate or prosecute any alcohol or drug abuse patient.[facility] CenterIn the event this information is protected by the Federal Confidentiality of Alcohol and Drug Abuse Patient Records regulations: The Federal rules restrict any use of the information to criminally investigate or prosecute any alcohol or drug abuse patient.[facility] CenterIn the event this information is protected by the Federal Confidentiality of Alcohol and Drug Abuse Patient Records regulations: The Federal rules restrict any use of the information to criminally investigate or prosecute any alcohol or drug abuse patient.[facility] CenterIn the event this information is protected by the Federal Confidentiality of Alcohol and Drug Abuse Patient Records regulations: The Federal rules restrict any use of the information to criminally investigate or prosecute any alcohol or drug abuse patient.[facility] CenterIn the event this information is protected by the Federal Confidentiality of Alcohol and Drug Abuse Patient Records regulations: The Federal rules restrict any use of the information to criminally investigate or prosecute any alcohol or drug abuse patient.[facility] CenterIn the event this information is protected by the Federal Confidentiality of Alcohol and Drug Abuse Patient Records regulations: The Federal rules restrict any use of the information to criminally investigate or prosecute any alcohol or drug abuse patient.[facility] CenterIn the event this information is protected by the Federal Confidentiality of Alcohol and Drug Abuse Patient Records regulations: The Federal rules restrict any use of the information to criminally investigate or prosecute any alcohol or drug abuse patient.[facility] CenterIn the event this information is protected by the Federal Confidentiality of Alcohol and Drug Abuse Patient Records regulations: The Federal rules restrict any use of the information to criminally investigate or prosecute any alcohol or drug abuse patient.[facility] CenterIn the event this information is protected by the Federal Confidentiality of Alcohol and Drug Abuse Patient Records regulations: The Federal rules restrict any use of the information to criminally investigate or prosecute any alcohol or drug abuse patient.[facility] CenterIn the event this information is protected by the Federal Confidentiality of Alcohol and Drug Abuse Patient Records regulations: The Federal rules restrict any use of the information to criminally investigate or prosecute any alcohol or drug abuse patient.[facility] CenterIn the event this information is protected by the Federal Confidentiality of Alcohol and Drug Abuse Patient Records regulations: The Federal rules restrict any use of the information to criminally investigate or prosecute any alcohol or drug abuse patient.[facility] CenterIn the event this information is protected by the Federal Confidentiality of Alcohol and Drug Abuse Patient Records regulations: The Federal rules restrict any use of the information to criminally investigate or prosecute any alcohol or drug abuse patient.[facility] CenterIn the event this information is protected by the Federal Confidentiality of Alcohol and Drug Abuse Patient Records regulations: The Federal rules restrict any use of the information to criminally investigate or prosecute any alcohol or drug abuse patient.[facility] CenterIn the event this information is protected by the Federal Confidentiality of Alcohol and Drug Abuse Patient Records regulations: The Federal rules restrict any use of the information to criminally investigate or prosecute any alcohol or drug abuse patient.[facility] CenterIn the event this information is protected by the Federal Confidentiality of Alcohol and Drug Abuse Patient Records regulations: The Federal rules restrict any use of the information to criminally investigate or prosecute any alcohol or drug abuse patient.[facility] CenterIn the event this information is protected by the Federal Confidentiality of Alcohol and Drug Abuse Patient Records regulations: The Federal rules restrict any use of the information to criminally investigate or prosecute any alcohol or drug abuse patient.[facility] CenterIn the event this information is protected by the Federal Confidentiality of Alcohol and Drug Abuse Patient Records regulations: The Federal rules restrict any use of the information to criminally investigate or prosecute any alcohol or drug abuse patient.[facility] CenterIn the event this information is protected by the Federal Confidentiality of Alcohol and Drug Abuse Patient Records regulations: The Federal rules restrict any use of the information to criminally investigate or prosecute any alcohol or drug abuse patient.[facility] CenterIn the event this information is protected by the Federal Confidentiality of Alcohol and Drug Abuse Patient Records regulations: The Federal rules restrict any use of the information to criminally investigate or prosecute any alcohol or drug abuse patient.[facility] CenterIn the event this information is protected by the Federal Confidentiality of Alcohol and Drug Abuse Patient Records regulations: The Federal rules restrict any use of the information to criminally investigate or prosecute any alcohol or drug abuse patient.[facility] CenterIn the event this information is protected by the Federal Confidentiality of Alcohol and Drug Abuse Patient Records regulations: The Federal rules restrict any use of the information to criminally investigate or prosecute any alcohol or drug abuse patient.[facility] CenterIn the event this information is protected by the Federal Confidentiality of Alcohol and Drug Abuse Patient Records regulations: The Federal rules restrict any use of the information to criminally investigate or prosecute any alcohol or drug abuse patient.[facility] CenterIn the event this information is protected by the Federal Confidentiality of Alcohol and Drug Abuse Patient Records regulations: The Federal rules restrict any use of the information to criminally investigate or prosecute any alcohol or drug abuse patient.[facility] CenterIn the event this information is protected by the Federal Confidentiality of Alcohol and Drug Abuse Patient Records regulations: The Federal rules restrict any use of the information to criminally investigate or prosecute any alcohol or drug abuse patient.[facility] CenterIn the event this information is protected by the Federal Confidentiality of Alcohol and Drug Abuse Patient Records regulations: The Federal rules restrict any use of the information to criminally investigate or prosecute any alcohol or drug abuse patient.[facility] CenterIn the event this information is protected by the Federal Confidentiality of Alcohol and Drug Abuse Patient Records regulations: The Federal rules restrict any use of the information to criminally investigate or prosecute any alcohol or drug abuse patient.[facility] CenterIn the event this information is protected by the Federal Confidentiality of Alcohol and Drug Abuse Patient Records regulations: The Federal rules restrict any use of the information to criminally investigate or prosecute any alcohol or drug abuse patient.[facility] CenterIn the event this information is protected by the Federal Confidentiality of Alcohol and Drug Abuse Patient Records regulations: The Federal rules restrict any use of the information to criminally investigate or prosecute any alcohol or drug abuse patient.[facility] CenterIn the event this information is protected by the Federal Confidentiality of Alcohol and Drug Abuse Patient Records regulations: The Federal rules restrict any use of the information to criminally investigate or prosecute any alcohol or drug abuse patient.[facility] CenterIn the event this information is protected by the Federal Confidentiality of Alcohol and Drug Abuse Patient Records regulations: The Federal rules restrict any use of the information to criminally investigate or prosecute any alcohol or drug abuse patient.[facility] CenterIn the event this information is protected by the Federal Confidentiality of Alcohol and Drug Abuse Patient Records regulations: The Federal rules restrict any use of the information to criminally investigate or prosecute any alcohol or drug abuse patient.[facility] CenterIn the event this information is protected by the Federal Confidentiality of Alcohol and Drug Abuse Patient Records regulations: The Federal rules restrict any use of the information to criminally investigate or prosecute any alcohol or drug abuse patient.[facility] CenterIn the event this information is protected by the Federal Confidentiality of Alcohol and Drug Abuse Patient Records regulations: The Federal rules restrict any use of the information to criminally investigate or prosecute any alcohol or drug abuse patient.[facility] CenterIn the event this information is protected by the Federal Confidentiality of Alcohol and Drug Abuse Patient Records regulations: The Federal rules restrict any use of the information to criminally investigate or prosecute any alcohol or drug abuse patient.[facility] CenterIn the event this information is protected by the Federal Confidentiality of Alcohol and Drug Abuse Patient Records regulations: The Federal rules restrict any use of the information to criminally investigate or prosecute any alcohol or drug abuse patient.[facility] CenterIn the event this information is protected by the Federal Confidentiality of Alcohol and Drug Abuse Patient Records regulations: The Federal rules restrict any use of the information to criminally investigate or prosecute any alcohol or drug abuse patient.[facility] CenterIn the event this information is protected by the Federal Confidentiality of Alcohol and Drug Abuse Patient Records regulations: The Federal rules restrict any use of the information to criminally investigate or prosecute any alcohol or drug abuse patient.[facility] CenterIn the event this information is protected by the Federal Confidentiality of Alcohol and Drug Abuse Patient Records regulations: The Federal rules restrict any use of the information to criminally investigate or prosecute any alcohol or drug abuse patient.[facility] CenterIn the event this information is protected by the Federal Confidentiality of Alcohol and Drug Abuse Patient Records regulations: The Federal rules restrict any use of the information to criminally investigate or prosecute any alcohol or drug abuse patient.[facility] CenterIn the event this information is protected by the Federal Confidentiality of Alcohol and Drug Abuse Patient Records regulations: The Federal rules restrict any use of the information to criminally investigate or prosecute any alcohol or drug abuse patient.[facility] CenterIn the event this information is protected by the Federal Confidentiality of Alcohol and Drug Abuse Patient Records regulations: The Federal rules restrict any use of the information to criminally investigate or prosecute any alcohol or drug abuse patient.[facility] CenterIn the event this information is protected by the Federal Confidentiality of Alcohol and Drug Abuse Patient Records regulations: The Federal rules restrict any use of the information to criminally investigate or prosecute any alcohol or drug abuse patient.[facility] CenterIn the event this information is protected by the Federal Confidentiality of Alcohol and Drug Abuse Patient Records regulations: The Federal rules restrict any use of the information to criminally investigate or prosecute any alcohol or drug abuse patient.[facility] CenterIn the event this information is protected by the Federal Confidentiality of Alcohol and Drug Abuse Patient Records regulations: The Federal rules restrict any use of the information to criminally investigate or prosecute any alcohol or drug abuse patient.[facility] CenterIn the event this information is protected by the Federal Confidentiality of Alcohol and Drug Abuse Patient Records regulations: The Federal rules restrict any use of the information to criminally investigate or prosecute any alcohol or drug abuse patient.[facility] CenterIn the event this information is protected by the Federal Confidentiality of Alcohol and Drug Abuse Patient Records regulations: The Federal rules restrict any use of the information to criminally investigate or prosecute any alcohol or drug abuse patient.[facility] CenterIn the event this information is protected by the Federal Confidentiality of Alcohol and Drug Abuse Patient Records regulations: The Federal rules restrict any use of the information to criminally investigate or prosecute any alcohol or drug abuse patient.[facility] CenterIn the event this information is protected by the Federal Confidentiality of Alcohol and Drug Abuse Patient Records regulations: The Federal rules restrict any use of the information to criminally investigate or prosecute any alcohol or drug abuse patient.[facility] CenterIn the event this information is protected by the Federal Confidentiality of Alcohol and Drug Abuse Patient Records regulations: The Federal rules restrict any use of the information to criminally investigate or prosecute any alcohol or drug abuse patient.[facility] CenterIn the event this information is protected by the Federal Confidentiality of Alcohol and Drug Abuse Patient Records regulations: The Federal rules restrict any use of the information to criminally investigate or prosecute any alcohol or drug abuse patient.[facility] CenterIn the event this information is protected by the Federal Confidentiality of Alcohol and Drug Abuse Patient Records regulations: The Federal rules restrict any use of the information to criminally investigate or prosecute any alcohol or drug abuse patient.[facility] CenterIn the event this information is protected by the Federal Confidentiality of Alcohol and Drug Abuse Patient Records regulations: The Federal rules restrict any use of the information to criminally investigate or prosecute any alcohol or drug abuse patient.[facility] CenterIn the event this information is protected by the Federal Confidentiality of Alcohol and Drug Abuse Patient Records regulations: The Federal rules restrict any use of the information to criminally investigate or prosecute any alcohol or drug abuse patient.[facility] CenterIn the event this information is protected by the Federal Confidentiality of Alcohol and Drug Abuse Patient Records regulations: The Federal rules restrict any use of the information to criminally investigate or prosecute any alcohol or drug abuse patient.[facility] CenterIn the event this information is protected by the Federal Confidentiality of Alcohol and Drug Abuse Patient Records regulations: The Federal rules restrict any use of the information to criminally investigate or prosecute any alcohol or drug abuse patient.[facility] CenterIn the event this information is protected by the Federal Confidentiality of Alcohol and Drug Abuse Patient Records regulations: The Federal rules restrict any use of the information to criminally investigate or prosecute any alcohol or drug abuse patient.[facility] CenterIn the event this information is protected by the Federal Confidentiality of Alcohol and Drug Abuse Patient Records regulations: The Federal rules restrict any use of the information to criminally investigate or prosecute any alcohol or drug abuse patient.[facility] CenterIn the event this information is protected by the Federal Confidentiality of Alcohol and Drug Abuse Patient Records regulations: The Federal rules restrict any use of the information to criminally investigate or prosecute any alcohol or drug abuse patient.[facility] CenterIn the event this information is protected by the Federal Confidentiality of Alcohol and Drug Abuse Patient Records regulations: The Federal rules restrict any use of the information to criminally investigate or prosecute any alcohol or drug abuse patient.[facility] CenterIn the event this information is protected by the Federal Confidentiality of Alcohol and Drug Abuse Patient Records regulations: The Federal rules restrict any use of the information to criminally investigate or prosecute any alcohol or drug abuse patient.[facility] CenterIn the event this information is protected by the Federal Confidentiality of Alcohol and Drug Abuse Patient Records regulations: The Federal rules restrict any use of the information to criminally investigate or prosecute any alcohol or drug abuse patient.[facility] CenterIn the event this information is protected by the Federal Confidentiality of Alcohol and Drug Abuse Patient Records regulations: The Federal rules restrict any use of the information to criminally investigate or prosecute any alcohol or drug abuse patient.[facility] CenterIn the event this information is protected by the Federal Confidentiality of Alcohol and Drug Abuse Patient Records regulations: The Federal rules restrict any use of the information to criminally investigate or prosecute any alcohol or drug abuse patient.[facility] CenterIn the event this information is protected by the Federal Confidentiality of Alcohol and Drug Abuse Patient Records regulations: The Federal rules restrict any use of the information to criminally investigate or prosecute any alcohol or drug abuse patient.[facility] CenterIn the event this information is protected by the Federal Confidentiality of Alcohol and Drug Abuse Patient Records regulations: The Federal rules restrict any use of the information to criminally investigate or prosecute any alcohol or drug abuse patient.[facility] CenterIn the event this information is protected by the Federal Confidentiality of Alcohol and Drug Abuse Patient Records regulations: The Federal rules restrict any use of the information to criminally investigate or prosecute any alcohol or drug abuse patient.[facility] CenterIn the event this information is protected by the Federal Confidentiality of Alcohol and Drug Abuse Patient Records regulations: The Federal rules restrict any use of the information to criminally investigate or prosecute any alcohol or drug abuse patient.[facility] CenterIn the event this information is protected by the Federal Confidentiality of Alcohol and Drug Abuse Patient Records regulations: The Federal rules restrict any use of the information to criminally investigate or prosecute any alcohol or drug abuse patient.[facility] CenterIn the event this information is protected by the Federal Confidentiality of Alcohol and Drug Abuse Patient Records regulations: The Federal rules restrict any use of the information to criminally investigate or prosecute any alcohol or drug abuse patient.[facility] CenterIn the event this information is protected by the Federal Confidentiality of Alcohol and Drug Abuse Patient Records regulations: The Federal rules restrict any use of the information to criminally investigate or prosecute any alcohol or drug abuse patient.[facility] CenterIn the event this information is protected by the Federal Confidentiality of Alcohol and Drug Abuse Patient Records regulations: The Federal rules restrict any use of the information to criminally investigate or prosecute any alcohol or drug abuse patient.[facility] CenterIn the event this information is protected by the Federal Confidentiality of Alcohol and Drug Abuse Patient Records regulations: The Federal rules restrict any use of the information to criminally investigate or prosecute any alcohol or drug abuse patient.[facility] CenterIn the event this information is protected by the Federal Confidentiality of Alcohol and Drug Abuse Patient Records regulations: The Federal rules restrict any use of the information to criminally investigate or prosecute any alcohol or drug abuse patient.[facility] CenterIn the event this information is protected by the Federal Confidentiality of Alcohol and Drug Abuse Patient Records regulations: The Federal rules restrict any use of the information to criminally investigate or prosecute any alcohol or drug abuse patient.[facility] CenterIn the event this information is protected by the Federal Confidentiality of Alcohol and Drug Abuse Patient Records regulations: The Federal rules restrict any use of the information to criminally investigate or prosecute any alcohol or drug abuse patient.[facility] CenterIn the event this information is protected by the Federal Confidentiality of Alcohol and Drug Abuse Patient Records regulations: The Federal rules restrict any use of the information to criminally investigate or prosecute any alcohol or drug abuse patient.[facility] CenterIn the event this information is protected by the Federal Confidentiality of Alcohol and Drug Abuse Patient Records regulations: The Federal rules restrict any use of the information to criminally investigate or prosecute any alcohol or drug abuse patient.[facility] CenterIn the event this information is protected by the Federal Confidentiality of Alcohol and Drug Abuse Patient Records regulations: The Federal rules restrict any use of the information to criminally investigate or prosecute any alcohol or drug abuse patient.[facility] CenterIn the event this information is protected by the Federal Confidentiality of Alcohol and Drug Abuse Patient Records regulations: The Federal rules restrict any use of the information to criminally investigate or prosecute any alcohol or drug abuse patient.[facility] CenterIn the event this information is protected by the Federal Confidentiality of Alcohol and Drug Abuse Patient Records regulations: The Federal rules restrict any use of the information to criminally investigate or prosecute any alcohol or drug abuse patient.[facility] CenterIn the event this information is protected by the Federal Confidentiality of Alcohol and Drug Abuse Patient Records regulations: The Federal rules restrict any use of the information to criminally investigate or prosecute any alcohol or drug abuse patient.[facility] CenterIn the event this information is protected by the Federal Confidentiality of Alcohol and Drug Abuse Patient Records regulations: The Federal rules restrict any use of the information to criminally investigate or prosecute any alcohol or drug abuse patient.[facility] CenterIn the event this information is protected by the Federal Confidentiality of Alcohol and Drug Abuse Patient Records regulations: The Federal rules restrict any use of the information to criminally investigate or prosecute any alcohol or drug abuse patient.[facility] CenterIn the event this information is protected by the Federal Confidentiality of Alcohol and Drug Abuse Patient Records regulations: The Federal rules restrict any use of the information to criminally investigate or prosecute any alcohol or drug abuse patient.[facility] CenterIn the event this information is protected by the Federal Confidentiality of Alcohol and Drug Abuse Patient Records regulations: The Federal rules restrict any use of the information to criminally investigate or prosecute any alcohol or drug abuse patient.[facility] CenterIn the event this information is protected by the Federal Confidentiality of Alcohol and Drug Abuse Patient Records regulations: The Federal rules restrict any use of the information to criminally investigate or prosecute any alcohol or drug abuse patient.[facility] CenterIn the event this information is protected by the Federal Confidentiality of Alcohol and Drug Abuse Patient Records regulations: The Federal rules restrict any use of the information to criminally investigate or prosecute any alcohol or drug abuse patient.[facility] CenterIn the event this information is protected by the Federal Confidentiality of Alcohol and Drug Abuse Patient Records regulations: The Federal rules restrict any use of the information to criminally investigate or prosecute any alcohol or drug abuse patient.[facility] CenterIn the event this information is protected by the Federal Confidentiality of Alcohol and Drug Abuse Patient Records regulations: The Federal rules restrict any use of the information to criminally investigate or prosecute any alcohol or drug abuse patient.[facility] CenterIn the event this information is protected by the Federal Confidentiality of Alcohol and Drug Abuse Patient Records regulations: The Federal rules restrict any use of the information to criminally investigate or prosecute any alcohol or drug abuse patient.[facility] CenterIn the event this information is protected by the Federal Confidentiality of Alcohol and Drug Abuse Patient Records regulations: The Federal rules restrict any use of the information to criminally investigate or prosecute any alcohol or drug abuse patient.[facility] CenterIn the event this information is protected by the Federal Confidentiality of Alcohol and Drug Abuse Patient Records regulations: The Federal rules restrict any use of the information to criminally investigate or prosecute any alcohol or drug abuse patient.[facility] CenterIn the event this information is protected by the Federal Confidentiality of Alcohol and Drug Abuse Patient Records regulations: The Federal rules restrict any use of the information to criminally investigate or prosecute any alcohol or drug abuse patient.[facility] CenterIn the event this information is protected by the Federal Confidentiality of Alcohol and Drug Abuse Patient Records regulations: The Federal rules restrict any use of the information to criminally investigate or prosecute any alcohol or drug abuse patient.[facility] CenterIn the event this information is protected by the Federal Confidentiality of Alcohol and Drug Abuse Patient Records regulations: The Federal rules restrict any use of the information to criminally investigate or prosecute any alcohol or drug abuse patient.[facility] CenterIn the event this information is protected by the Federal Confidentiality of Alcohol and Drug Abuse Patient Records regulations: The Federal rules restrict any use of the information to criminally investigate or prosecute any alcohol or drug abuse patient.[facility] CenterIn the event this information is protected by the Federal Confidentiality of Alcohol and Drug Abuse Patient Records regulations: The Federal rules restrict any use of the information to criminally investigate or prosecute any alcohol or drug abuse patient.[facility] CenterIn the event this information is protected by the Federal Confidentiality of Alcohol and Drug Abuse Patient Records regulations: The Federal rules restrict any use of the information to criminally investigate or prosecute any alcohol or drug abuse patient.[facility] CenterIn the event this information is protected by the Federal Confidentiality of Alcohol and Drug Abuse Patient Records regulations: The Federal rules restrict any use of the information to criminally investigate or prosecute any alcohol or drug abuse patient.[facility] CenterIn the event this information is protected by the Federal Confidentiality of Alcohol and Drug Abuse Patient Records regulations: The Federal rules restrict any use of the information to criminally investigate or prosecute any alcohol or drug abuse patient.[facility] CenterIn the event this information is protected by the Federal Confidentiality of Alcohol and Drug Abuse Patient Records regulations: The Federal rules restrict any use of the information to criminally investigate or prosecute any alcohol or drug abuse patient.[facility] CenterIn the event this information is protected by the Federal Confidentiality of Alcohol and Drug Abuse Patient Records regulations: The Federal rules restrict any use of the information to criminally investigate or prosecute any alcohol or drug abuse patient.[facility] CenterIn the event this information is protected by the Federal Confidentiality of Alcohol and Drug Abuse Patient Records regulations: The Federal rules restrict any use of the information to criminally investigate or prosecute any alcohol or drug abuse patient.[facility] CenterIn the event this information is protected by the Federal Confidentiality of Alcohol and Drug Abuse Patient Records regulations: The Federal rules restrict any use of the information to criminally investigate or prosecute any alcohol or drug abuse patient.[facility]In the event this information is protected by the Federal Confidentiality of Alcohol and Drug Abuse Patient Records regulations: The Federal rules restrict any use of the information to criminally investigate or prosecute any alcohol or drug abuse patient.[facility] CenterIn the event this information is protected by the Federal Confidentiality of Alcohol and Drug Abuse Patient Records regulations: The Federal rules restrict any use of the information to criminally investigate or prosecute any alcohol or drug abuse patient.[facility] CenterIn the event this information is protected by the Federal Confidentiality of Alcohol and Drug Abuse Patient Records regulations: The Federal rules restrict any use of the information to criminally investigate or prosecute any alcohol or drug abuse patient.[facility] CenterIn the event this information is protected by the Federal Confidentiality of Alcohol and Drug Abuse Patient Records regulations: The Federal rules restrict any use of the information to criminally investigate or prosecute any alcohol or drug abuse patient.[facility] CenterIn the event this information is protected by the Federal Confidentiality of Alcohol and Drug Abuse Patient Records regulations: The Federal rules restrict any use of the information to criminally investigate or prosecute any alcohol or drug abuse patient.[facility] CenterIn the event this information is protected by the Federal Confidentiality of Alcohol and Drug Abuse Patient Records regulations: The Federal rules restrict any use of the information to criminally investigate or prosecute any alcohol or drug abuse patient.[facility] CenterIn the event this information is protected by the Federal Confidentiality of Alcohol and Drug Abuse Patient Records regulations: The Federal rules restrict any use of the information to criminally investigate or prosecute any alcohol or drug abuse patient.[facility] CenterIn the event this information is protected by the Federal Confidentiality of Alcohol and Drug Abuse Patient Records regulations: The Federal rules restrict any use of the information to criminally investigate or prosecute any alcohol or drug abuse patient.[facility] CenterIn the event this information is protected by the Federal Confidentiality of Alcohol and Drug Abuse Patient Records regulations: The Federal rules restrict any use of the information to criminally investigate or prosecute any alcohol or drug abuse patient.[facility] CenterIn the event this information is protected by the Federal Confidentiality of Alcohol and Drug Abuse Patient Records regulations: The Federal rules restrict any use of the information to criminally investigate or prosecute any alcohol or drug abuse patient.[facility] CenterIn the event this information is protected by the Federal Confidentiality of Alcohol and Drug Abuse Patient Records regulations: The Federal rules restrict any use of the information to criminally investigate or prosecute any alcohol or drug abuse patient.[facility] CenterIn the event this information is protected by the Federal Confidentiality of Alcohol and Drug Abuse Patient Records regulations: The Federal rules restrict any use of the information to criminally investigate or prosecute any alcohol or drug abuse patient.[facility] CenterIn the event this information is protected by the Federal Confidentiality of Alcohol and Drug Abuse Patient Records regulations: The Federal rules restrict any use of the information to criminally investigate or prosecute any alcohol or drug abuse patient.[facility] CenterIn the event this information is protected by the Federal Confidentiality of Alcohol and Drug Abuse Patient Records regulations: The Federal rules restrict any use of the information to criminally investigate or prosecute any alcohol or drug abuse patient.[facility] CenterIn the event this information is protected by the Federal Confidentiality of Alcohol and Drug Abuse Patient Records regulations: The Federal rules restrict any use of the information to criminally investigate or prosecute any alcohol or drug abuse patient.[facility] CenterIn the event this information is protected by the Federal Confidentiality of Alcohol and Drug Abuse Patient Records regulations: The Federal rules restrict any use of the information to criminally investigate or prosecute any alcohol or drug abuse patient.[facility] CenterIn the event this information is protected by the Federal Confidentiality of Alcohol and Drug Abuse Patient Records regulations: The Federal rules restrict any use of the information to criminally investigate or prosecute any alcohol or drug abuse patient.[facility] CenterIn the event this information is protected by the Federal Confidentiality of Alcohol and Drug Abuse Patient Records regulations: The Federal rules restrict any use of the information to criminally investigate or prosecute any alcohol or drug abuse patient.[facility] CenterIn the event this information is protected by the Federal Confidentiality of Alcohol and Drug Abuse Patient Records regulations: The Federal rules restrict any use of the information to criminally investigate or prosecute any alcohol or drug abuse patient.[facility] CenterIn the event this information is protected by the Federal Confidentiality of Alcohol and Drug Abuse Patient Records regulations: The Federal rules restrict any use of the information to criminally investigate or prosecute any alcohol or drug abuse patient.[facility] CenterIn the event this information is protected by the Federal Confidentiality of Alcohol and Drug Abuse Patient Records regulations: The Federal rules restrict any use of the information to criminally investigate or prosecute any alcohol or drug abuse patient.[facility] CenterIn the event this information is protected by the Federal Confidentiality of Alcohol and Drug Abuse Patient Records regulations: The Federal rules restrict any use of the information to criminally investigate or prosecute any alcohol or drug abuse patient.[facility] CenterIn the event this information is protected by the Federal Confidentiality of Alcohol and Drug Abuse Patient Records regulations: The Federal rules restrict any use of the information to criminally investigate or prosecute any alcohol or drug abuse patient.[facility] Reason for Visit (unrecogniz ed section and content) Reason Comments Medical Nutrition Therapy Type 1 Diabete s Specialty Diagnoses / Procedures Referred By Belgica t Referred To Contact Endocrinology Diagnoses Diabetes mellitus type 1, controlled, without complications (HCC) Procedures MEDICAL NUTRITION ASSMT&IVNTJ INDIV EACH 15 CA MEDICAL NUTRITION ASSMT&IVNTJ INDIV EACH 15 CA MEDICAL NUTRITION ASSMT&IVNTJ INDIV EACH 15 CA MEDICAL NUTRITION ASSMT&IVNTJ INDIV EACH 15 CA Renetta Mcgee SANDSTONE SPLITTER.LOCKER ATTENDANT [address] [place] [address] Phone: tel: fax: Referral ID Status Reason Start Date Expiration Date V isits Requested Visits Authorized [id number] Closed PCP Requested Referral 02/06/2025 02/06/2026 1 1 Reason Onset Date Comments Refill Request 10/22/2021 [...] OT Reason Comments Hospital F/U Follow up [facility] and Av enue discharge Reason Comments Results Reason Comments Established Patient Reason Comments [facility] - medication question Reason Comments Vulvar problem Reason Comments Same Day Appointment lump in anus area x 1 week txd with antibiotics Reason Comments Lump on anus Reason Comments Follow Up 4 month Reason Comments patient asking for 3 D mamm order fax to [facility] Reason Comments Refill Request Reason Comments New Patient Palpitations Specialty Diagnoses / Procedures Referred By Belgica t Referred To Contact Cardiology Diagnoses Palpitations Paroxysmal SVT (supraventricular tachycardia) Procedures CONSULT TO CARDIOLOGY OFFICE/OUTPATIENT NEW HIGH MDM 60-74 MINUTES Davon Wolfe APRN.LOCKER ATTENDANT [address] [place] [address] Referral ID Status Reason Start Date Expiration Date Visits Requested Visits Authorized [id number] Pending Review PCP Requested Referral 11/12/2022 11/12/2023 1 1 Reason Onset Date Comments Refill Request 06/14/2023 Reason Comments Spirometry Specialty Diagnoses / Procedures Referred By Contac t Referred To Contact [facility] Diagnoses Severe persistent asthma without complication Procedures OXIMETRY WITH AMBULATION NONINVASIVE EAR/PULSE OXIMETRY MULTIPLE DETER Tierney Nunez PA-C [address] [place] [address] [address] Referral ID Status Reason Start Date Expiration Date V isits Requested Visits Authorized [id number] Closed Auto-Generate d Referral 06/23/2023 07/17/2023 1 1 Specialty Diagnoses / Procedures Referred By Contac t Referred To Contact [facility] Diagnoses Severe persistent asthma without complication Procedures NITRIC OXIDE, EXHALED NITRIC OXIDE GAS DETERMINATION Tierney Nunez PA-C [address] [facility] [place] [address] [address] Referral ID Status Reason Start Date Expiration Date V isits Requested Visits Authorized [id number] Closed Auto-Generate d Referral 06/23/2023 07/22/2024 1 [...] manifestations (HCC) Procedures CONSULT TO ENDOCRINOLOGY OFFICE/OUTPATIENT NEW HIGH MDM 60 MINUTES Lydia Grande, SANDSTONE SPLITTER.COMMUNITY DEVELOPMENT COORDINATOR [address] [place] [address] Referral ID Status Reason Start Date Expiration Date V isits Requested Visits Authorized [id number] Closed PCP Requested Referral 11/08/2023 11/07/2024 1 1 Reason Comments FYI-No Action Needed Reason Onset Date Comments Patient Question 12/09/2023 Reason Comments Patient Update and question Reason Comments sore lump on side of right neck X 1 week Reason Comments Blood sugar readings Copy of recent BS lillian eadings attached to this encounter. Reason Comments Diabetes Specialty Diagnoses / Procedures Referred By Contac t Referred To Contact Diagnoses Diabetes mellitus type 1, controlled, without complications (HCC) Procedures CONSULT TO DIABETES EDUCATION DSME/MNT MEDICAL NUTRITION ASSMT&IVNTJ INDIV EACH 15 CA MEDICAL NUTRITION ASSMT&IVNTJ INDIV EACH 15 CA MEDICAL NUTRITION ASSMT&IVNTJ INDIV EACH 15 CA MEDICAL NUTRITION ASSMT&IVNTJ INDIV EACH 15 CA Renetta Mcgee, SANDSTONE SPLITTER.LOCKER ATTENDANT [address] [place] [address] Referral ID Status Reason Start Date Expiration Date V isits Requested Visits Authorized [id number] Closed PCP Requested Referral 12/07/2023 12/06/2024 1 1 Reason Comments Orders Lab Orders Reason Comments Diabetes mellitus type 1, controlled, wi thout complications Reason Comments Orders Reason Comments Established Patient Increased dyspnea Reason Comments Symbicort needs authorized Reason Comments F/U 4 month Labs prior Reason Onset Date Comments Refill Request 03/23/2024 Specialty Diagnoses / Procedures [facility] Diagnoses Mild persistent asthma without complication Procedures NITRIC OXIDE, EXHALED NITRIC OXIDE GAS DETERMINATION Christine Bianchi MD [address] [place] [address] Respiratory [place] [address] [place] [address] Referral ID Status Reason Start Date Expiration Date V isits Requested Visits Authorized [id number] Closed Auto-Generate d Referral 09/22/2023 10/21/2024 1 1 Reason Comments Established Patient 6 month follow up as thma Asthma Reason Comments Cough Cough, sneezing and right side of neck hurts x 2 days Reason Comments Recheck [facility] ER 05/05/24 shor tness of breath with chest discomfort was note arrhythmia Dental Problem questions a tooth ab scess. Reason Comments checking if lab work due Reason Comments 4 month follow up [facility] ER 06/08/24 foll ow up for UTI.Treated with Bactrim but feels not tolerating the Bactrim as it is causing her to be really warm and elevated blood sugar Reason Onset Date Comments Refill Request 06/19/2024 Reason Onset Date Comments [facility] Navigation Outreach 06/21/2024 AWV INITIATIVE Reason Comments elevated blood glucose Reason Comments Rx Refills Reason Onset Date Comments Refill Request 07/27/2024 Reason Comments Constipation Reason Onset Date Comments [facility] Outreach 08/17/2024 [employer] High Risk - Attempt 1 Reason Comments Clinical Update Reason Comments Blood sugar test strips PA Reason Comments ER F/U [facility] 09/20 abdominal pa in, constipation; [facility] 09/21 hyperglycemia; [facility] diarrhea Reason Comments 4 month f/up Reason Comments Patient Question Requesting a call back from nurse Returning Patient's Call Reason Comments High Blood Sugar left leg pain Reason Comments Patient Update Ongoing high blood s ugars Reason Comments type 1 diabetes Reason Onset Date Comments Epic Cadence Analyst- Other 11/07/2024 CDM chart review Reason Comments Patient Question Low heart rate Reason Onset Date Comments Refill Request 12/12/2024 Reason Comments Patient Update Returning Patient's Call Reason Comments Medicare Wellness Exam Reason Comments Hospital Follow Up Reason Comments Insulin Dependent Diabetes Mellitus Reason Comments Patient Question Medication Problem Reason Onset Date Comments [facility] Navigation Outreach 03/07/2025 [employer] Workbenc [place]on Reason Comments Blood Pressure Check Home blood pressure running high, flushing cheeks in the am, Care Teams (unrecognized sec tion and content) Rural 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 Relationship Specialty Start Date End Date Octavio Reza MD [address] [place], [place] [address] PCP - General Internal Medicine 08/24/10 Rural 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 Relationship Specialty Start Date End Date Octavio Reza MD [address] [place], [place] [address] PCP - General Internal Medicine 08/24/10 Rural 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 Relationship Specialty Start Date End Date Octavio Reza MD [address] [place] [address], [place] [address] PCP - General Internal Medicine 08/24/10 Rural 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 Relationship Specialty Start Date End Date Octavio Reza MD [address] [place] [address], [place] [address] PCP - General Internal Medicine 08/24/10 Rural 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 Relationship Specialty Start Date End Date Octavio Reza MD [address] [place] [address], [place] [address] PCP - General Internal Medicine 08/24/10 Rural 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 Relationship Specialty Start Date End Date Octavio Reza MD [address] [place] [address], [place] [address] PCP - General Internal Medicine 08/24/10 Rural 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 Relationship Specialty Start Date End Date Octavio Reza MD [address] [place] [address], [place] [address] PCP - General Internal Medicine 08/24/10 Rural 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 Relationship Specialty Start Date End Date Octavio Reza MD [address] [place] [address], [place] [address] PCP - General Internal Medicine 08/24/10 Rural 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 Relationship Specialty Start Date End Date Octavio Reza MD [address] [place] [address], [place] [address] PCP - General Internal Medicine 08/24/10 Rural 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 Relationship Specialty Start Date End Date Octavio Reza MD [address] [place] [address], [place] [address] PCP - General Internal Medicine 08/24/10 Rural 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 Relationship Specialty Start Date End Date Octavio Reza MD [address] [place] [address], [place] [address] PCP - General Internal Medicine 08/24/10 Rural 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 Relationship Specialty Start Date End Date Octavio Reza MD [address] [place] [address] PCP - General Internal Medicine 08/24/10 Rural 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 Relationship Specialty Start Date End Date Octavio Reza MD [facility] [address] PCP - General Internal Medicine 08/24/10 Rural 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 Relationship Specialty Start Date End Date Octavio Reza MD [address] [place] [address], [place] [address] PCP - General Internal Medicine 08/24/10 Rural 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 Relationship Specialty Start Date End Date Octavio Reza MD [address] [place] [address], [place] [address] PCP - General Internal Medicine 08/24/10 Rural 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 Relationship Specialty Start Date End Date Octavio Reza MD [address] [place] [address], [place] [address] PCP - General Internal Medicine 08/24/10 Rural 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 Relationship Specialty Start Date End Date Octavio Reza MD [address] [place] [address], [place] [address] PCP - General Internal Medicine 08/24/10 Rural 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 Relationship Specialty Start Date End Date Octavio Reza MD [facility] [place] [address] PCP - General Internal Medicine 08/24/10 Rural 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 Relationship Specialty Start Date End Date Octavio Reza MD [address] [place] [address], [place] [address] PCP - General Internal Medicine 08/24/10 Rural 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 Relationship Specialty Start Date End Date Octavio Reza MD [address] [place] [address], [place] [address] PCP - General Internal Medicine 08/24/10 Team [...] A ctive Dr. Jer Escobedo DO Attending Provider, Other Pro vider Active Team Status: Active Member Role Status Dates Dr. Octavio Reza MD Primary Care Provider Active Dr. Mark Leong MD Emergency Provider Active Dr. Krystian Sandoval MD Admit Provider, Attending Provider, Other Provider Active Team Status: Active Member Role Status Dates Dr. Octavio Reza MD Primary Care Provider Active Dr. Mark Leong MD Emergency Provider Active Dr. Krystian Sandoval [...] Primary Care Provider Active Dr. Vazquez Harvey , Emergency Provider Active Dr. Tawanda Herring MD Admit Provider, Other Provider A ctive Dr. Jer Escobedo , DO Attending Provider Active Team Status: Inactive Member Role Status Dates Dr. Octavio Reza MD Primary Care Provider Active Dr. Mark Leong MD Emergency Provider Active Dr. Krystian Sandoval [...] Dr. Tawanda Herring MD Other Provider Active Rural 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 Relationship Specialty Start Date End Date Octavio Reza MD [address] [place] [address] PCP - General Internal Medicine 08/24/10 Rural 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 Relationship Specialty Start Date End Date Octavio Reza MD [address] [place] [address] PCP - General Internal Medicine 08/24/10 Team Status: Active Member Role Status Dates Dr. Octavio Reza MD Primary Care Provider Active Dr. Jayden Alberto MD Attending Provider, Refe rring Provider Active Team Status: Inactive Member Role Status Dates Dr. Octavio Reza MD Primary Care Provider Active Dr. Zay Juan DO Emergency Provider Active Rural 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 Relationship Specialty Start Date End Date Octavio Reza MD [address] [place] [address] PCP - General Internal Medicine 08/24/10 Rural 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 Relationship Specialty Start Date End Date Octavio Reza MD [address] [place] [address] PCP - General Internal Medicine 08/24/10 Team Status: Inactive Member Role Status Dates Dr. Octavio Reza MD Primary Care Provider Active Dr. Zay Juan DO Attending Provider, Emergency Nolan mora Active Team Status: Inactive Member Role Status Dates Dr. Octavio Reza MD Primary Care Provider Active Dr. Tierney Francis MD Emergency Provider Active Team Status: Active Member Role Status Dates Dr. Octavio Reza MD Primary Care Provider Active Dr. Lenin Michaels MD Attending Provider Active Team Status: Inactive Member Role Status Dates Dr. Octavio Reza MD Primary Care Provider Active Dr. Tiernye Francis MD Attending Provider, Emergency Provider Active Team Status: Inactive Member Role Status Dates Dr. Octavio Reza MD Primary Care Provider Active Areli Estevez PA, PA Attending Provider, Referr ing Provider Active Rural 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 Relationship Specialty Start Date End Date Octavio Reza MD [address] [place] [address] PCP - General Internal Medicine 08/24/10 Rural 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 Relationship Specialty Start Date End Date Octavio Reza MD [address] [place] [address] PCP - General Internal Medicine 08/24/10 Rural 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 Relationship Specialty Start Date End Date Octavio Reza MD [address] [place], [place] [address] PCP - General Internal Medicine 08/24/10 Team Status: Inactive Member Role Status Dates Dr. Octavio Reza MD Primary Care Pr ovider, Attending Provider, Referring Provider Active Rural 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 Relationship Specialty Start Date End Date Octavio Reza MD [address] [place], [place] [address] PCP - General Internal Medicine 08/24/10 Rural 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 Relationship Specialty Start Date End Date Octavio Reza MD [address] [facility] [address] PCP - General Internal Medicine 08/24/10 Rural 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 Relationship Specialty Start Date End Date Octavio Reza MD [address] [place] [address] PCP - General Internal Medicine 08/24/10 Rural 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 Relationship Specialty Start Date End Date Octavio Reza MD [address] [place] [address] PCP - General Internal Medicine 08/24/10 Rural 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 Relationship Specialty Start Date End Date Octavio Reza MD [address] [place] [address] PCP - General Internal Medicine 08/24/10 Rural 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 Relationship Specialty Start Date End Date Octavio Reza MD [address] [place] [address] PCP - General Internal Medicine 08/24/10 Rural 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 Relationship Specialty Start Date End Date Octavio Reza MD [address] [place] [address] PCP - General Internal Medicine 08/24/10 Team [...] Status: Inactive Member Role Status Dates Dr. Octavoi Reza MD Primary Care Provider Active Dr. Benjamín Stanford DO Attending Provider, Referring Provide r Active Rural 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 Relationship Specialty Start Date End Date Octavio Reza MD [address] [place] [address] PCP - General Internal Medicine 08/24/10 Rural 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 Relationship Specialty Start Date End Date Octavio Reza MD [address] [place] [address] PCP - General Internal Medicine 08/24/10 Rural 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 Relationship Specialty Start Date End Date Octavio Reza MD [address] [place] [address] PCP - General Internal Medicine 08/24/10 Rural 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 Relationship Specialty Start Date End Date Octavio Reza MD [address] [place] [address] PCP - General Internal Medicine 08/24/10 Team Status: Inactive Member Role Status Dates Dr. Octavio Reza MD Primary Care Provider, Referr ing Provider Active Jae Lee FOLDER MACHINE ADJUSTER, FOLDER MACHINE ADJUSTER-C Attending Provider Active Team Status: Active Member [...] MD Primary Care Provider Active Dr. Mark Leong MD Emergency Provider Active Rural 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 Relationship Specialty Start Date End Date Octavio Reza MD [address] [facility] [address] PCP - General Internal Medicine 08/24/10 Team Status: Inactive Member Role Status Dates Dr. Octavio Reza MD Primary Care Provider Active Dr. Mark Leong MD Attending Provider, Emergency Provi kaye Active Rural 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 Relationship Specialty Start Date End Date Octavio Reza MD [address] [place] [address] PCP - General Internal Medicine 08/24/10 Rural 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 Relationship Specialty Start Date End Date Octavio Reza MD [address] [place] [address] PCP - General Internal Medicine 08/24/10 Team Status: Inactive Member Role Status Dates Dr. Octavio Reza MD Primary Care Provider Active Dr. Holland Sanches DO Emergency Provider Active Rural 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 Relationship Specialty Start Date End Date Octavio Reza MD [address] [facility] [address] PCP - General Internal Medicine 08/24/10 Rural 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 Relationship Specialty Start Date End Date Octavio Reza MD [address] [place] [address] PCP - General Internal Medicine 08/24/10 Rural 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 Relationship Specialty Start Date End Date Octavio Reza MD [address] [place] [address] PCP - General Internal Medicine 08/24/10 Rural 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 Relationship Specialty Start Date End Date Octavio Reza MD [address] [place] [address] PCP - General Internal Medicine 08/24/10 Team Status: Inactive Member Role Status Dates Dr. Octavio Reza MD Primary Care Provider Active Dr. Holland Sanches DO Attending Provider, Leo mora Active Rural 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 Relationship Specialty Start Date End Date Octavio Reza MD [address] [place] [address] PCP - General Internal Medicine 08/24/10 Rural 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 Relationship Specialty Start Date End Date Octavio Reza MD [address] [place] [address] PCP - General Internal Medicine 08/24/10 [facility] [address] [facility] [place] [address] Pharmacist Pharmacy 01/12/24 Rural 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 Relationship Specialty Start Date End Date Octavio Reza MD [address] [place] [address] PCP - General Internal Medicine 08/24/10 [facility] [address] [facility] [place] [address] Pharmacist Pharmacy 01/12/24 Rural 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 Relationship Specialty Start Date End Date Octavio Reza MD [address] [place] [address] PCP - General Internal Medicine 08/24/10 [facility] [address] [facility] [place] [address] Pharmacist Pharmacy 01/12/24 Rural 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 Relationship Specialty Start Date End Date Octavio Reza MD [address] [place] [address] PCP - General Internal Medicine 08/24/10 [facility] [address] [facility] [place] [address] Pharmacist Pharmacy 01/12/24 Rural 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 Relationship Specialty Start Date End Date Octavio Reza MD [address] [place] [address] PCP - General Internal Medicine 08/24/10 [facility]Charis [facility]Ex[facility] [address] [facility] [place] [address] Pharmacist Pharmacy 01/12/24 Rural 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 Relationship Specialty Start Date End Date Octavio Reza MD [address] [place] [address] PCP - General Internal Medicine 08/24/10 [facility] [address] [facility] [place] [address] Pharmacist Pharmacy 01/12/24 Rural 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 Relationship Specialty Start Date End Date Octavio Reza MD [address] [place] [address] PCP - General Internal Medicine 08/24/10 [facility] [address] [facility] [place] [address] Pharmacist Pharmacy 01/12/24 Rural 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 Relationship Specialty Start Date End Date Octavio Reza MD [address] [facility] [place] [address] PCP - General Internal Medicine 08/24/10 [facility] [address] [place] [address] Pharmacist Pharmacy 01/12/24 Rural 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 Relationship Specialty Start Date End Date Octavio Reza MD [address] [facility] [place] [address] PCP - General Internal Medicine 08/24/10 [facility] [address] [place] [address] Pharmacist Pharmacy 01/12/24 Rural 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 Relationship Specialty Start Date End Date Octavio Reza MD [address] [facility] [place] [address] PCP - General Internal Medicine 08/24/10 [facility] [address] [place] [address] Pharmacist Pharmacy 01/12/24 Rural 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 Relationship Specialty Start Date End Date Octavio Reza MD [address] [facility] [place] [address] PCP - General Internal Medicine 08/24/10 [facility] [address] [facility] [place] [address] Pharmacist Pharmacy 01/12/24 Rural 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 Relationship Specialty Start Date End Date Octavio Reza MD [address] [place] [address] PCP - General Internal Medicine 08/24/10 Charis Lucas, [facility] [address] [facility] [place] [address] Pharmacist Pharmacy 01/12/24 Rural 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 Relationship Specialty Start Date End Date Octavio Reza MD [address] [place] [address] PCP - General Internal Medicine 08/24/10 Charis Lucas, [facility] [address] [place] [address] Pharmacist Pharmacy 01/12/24 Rural 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 Relationship Specialty Start Date End Date Octavio Reza MD [address] [place] [address] PCP - General Internal Medicine 08/24/10 Charis Lucas, [facility] [address] [place] [address] Pharmacist Pharmacy 01/12/24 Federica Alonzo RN [address] [place], [place] [id number] Epic Cadence Analyst 04/04/24 Rural 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 Relationship Specialty Start Date End Date Octavio Reza MD [address] [place] [address] PCP - General Internal Medicine 08/24/10 Jose Luacsta, [facility] [address] [facility] [place] [address] Pharmacist Pharmacy 01/12/24 Federica Alonzo RN [address] [place] [address] Epic Cadence Analyst 04/04/24 Rural 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 Relationship Specialty Start Date End Date Octavio Reza MD [address] [facility] [address] PCP - General Internal Medicine 08/24/10 [facility] [address] [facility] [place] [address] Pharmacist Pharmacy 01/12/24 Federica Alonzo RN [address] [place], [place] [phone] Epic Cadence Analyst 04/04/24 Rural 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 Relationship Specialty Start Date End Date Octavio Reza MD [address] [place] [address] PCP - General Internal Medicine 08/24/10 Rural 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 Relationship Specialty Start Date End Date Octavio Reza MD [address] [place] [address] PCP - General Internal Medicine 08/24/10 [facility] [address] [facility] [place] [address] Pharmacist Pharmacy 01/12/24 Federica Alonzo RN [address] [place], [place] [phone] Epic Cadence Analyst 04/04/24 Rural 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 Relationship Specialty Start Date End Date Octavio Reza MD [address] [place] [address] PCP - General Internal Medicine 08/24/10 [facility] [address] [facility] [place] [address] Pharmacist Pharmacy 01/12/24 Federica Alonzo RN [address] [place] [address] Epic Cadence Analyst 04/04/24 Rural 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 Relationship Specialty Start Date End Date Octavio Reza MD [address] [facility] [address] PCP - General Internal Medicine 08/24/[address] [facility] [address] [facility] [place] [address] Pharmacist Pharmacy 01/12/24 Federica Alonzo, DEONNA [address] [place] [address] Epic Cadence Analyst 04/04/24 Rural 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 Relationship Specialty Start Date End Date Octavio Reza MD [address] [facility] [address] PCP - General Internal Medicine 08/24/10 [facility] [address] [facility] [place] [address] Pharmacist Pharmacy 01/12/24 Federica Alonzo RN [address] [place] [address] Epic Cadence Analyst 04/04/24 Rural 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 Relationship Specialty Start Date End Date Octavio Reza MD [address] [place] [address] PCP - General Internal Medicine 08/24/10 [facility] [address] [facility] [place] [address] Pharmacist Pharmacy 01/12/24 Federica Alonzo RN [address] [place] [address] Epic Cadence Analyst 04/04/24 Renetta Mcgee APRN.LOCKER ATTENDANT [address] [place] [address] Endocrinology 05/25/24 Rural 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 Relationship Specialty Start Date End Date Octavio Reza MD [address] [place] [address] PCP - General Internal Medicine 08/24/10 [facility] [address] [place] [address] Pharmacist Pharmacy 01/12/24 Federica Alonzo RN [address] [place] [address] Epic Cadence Analyst 04/04/24 Renetta Mcgee, SANDSTONE SPLITTER.LOCKER ATTENDANT [address] [place] [address] Endocrinology 05/25/24 Rural 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 Relationship Specialty Start Date End Date Octavio Reza MD [address] [place] [address] PCP - General Internal Medicine 08/24/10 [facility] [address] [place] [address] Pharmacist Pharmacy 01/12/24 Renetta Mcgee, SANDSTONE SPLITTER.LOCKER ATTENDANT [address] [place] [address] Endocrinology 05/25/24 Rural 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 Relationship Specialty Start Date End Date Octavio Reza MD [address] [place] [address] PCP - General Internal Medicine 08/24/10 [facility] [address] [place] [address] Pharmacist Pharmacy 01/12/24 Renetta Mcgee, SANDSTONE SPLITTER.LOCKER ATTENDANT [address] [place] [address] Endocrinology 05/25/24 Rural 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 Relationship Specialty Start Date End Date Octavio Reza MD [address] [place] [address] PCP - General Internal Medicine 08/24/10 [facility] [address] [place] [address] Pharmacist Pharmacy 01/12/24 Renetta Mcgee, SANDSTONE SPLITTER.LOCKER ATTENDANT [address] [place] [address] Endocrinology 05/25/24 Rural 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 Relationship Specialty Start Date End Date Octavio Reza MD [address] [place] [address] PCP - General Internal Medicine 08/24/10 [facility] [address] [place] [address] Pharmacist Pharmacy 01/12/24 Renetta Mcgee, SANDSTONE SPLITTER.LOCKER ATTENDANT [address] [place] [address] Endocrinology 05/25/24 Rural 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 Relationship Specialty Start Date End Date Octavio Reza MD [address] [place] [address] PCP - General Internal Medicine 08/24/10 [facility] [address] [place] [address] Pharmacist Pharmacy 01/12/24 Federica Alonzo RN [address] [place] [address] Epic Cadence Analyst 04/04/24 Renetta Mcgee APRN.LOCKER ATTENDANT [address] [place] [address] Endocrinology 05/25/24 Lydia Grande SANDSTONE SPLITTER.COMMUNITY DEVELOPMENT COORDINATOR [address] [place] [address] Contract Coordinator Internal Medicine 06/25/24 Davon Wolfe APRN.LOCKER ATTENDANT [address] [place] [address] [facility] Internal Medicine 06/25/24 Rural 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 Relationship Specialty Start Date End Date Octavio Reza MD [address] [place] [address] PCP - General Internal Medicine 08/24/10 Charis Lucas, [facility] [address] [place] [address] Pharmacist Pharmacy 01/12/24 Renetta Mcgee SANDSTONE SPLITTER.LOCKER ATTENDANT [address] [facility] [place] [place] [address] Endocrinology 05/25/24 Lydia Grande APRN.COMMUNITY DEVELOPMENT COORDINATOR [address] [place] [address] Contract Coordinator Internal Medicine 06/25/24 Davon Wolfe APRN.LOCKER ATTENDANT [address] [place] [address] Contract Coordinator Internal Medicine 06/25/24 Rural 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 Relationship Specialty Start Date End Date Octavio Reza MD [address] [facility] [place] [address] PCP - General Internal Medicine 08/24/10 [facility] [address] [facility] [place] [address] Pharmacist Pharmacy 01/12/24 Renetta Mcgee SANDSTONE SPLITTER.LOCKER ATTENDANT [address] [place] [address] Endocrinology 05/25/24 Lydia Grande, SANDSTONE SPLITTER.COMMUNITY DEVELOPMENT COORDINATOR [address] [facility] [place] [address] Contract Coordinator Internal Medicine 06/25/24 Davon Wolfe SANDSTONE SPLITTER.LOCKER ATTENDANT [address] [facility] [place] [address] [facility] Internal Medicine 06/25/24 Rural 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 Relationship Specialty Start Date End Date Octavio Reza MD [address] [place] [address] PCP - General Internal Medicine 08/24/10 [facility] [address] [place] [address] Pharmacist Pharmacy 01/12/24 Renetta Mcgee SANDSTONE SPLITTER.LOCKER ATTENDANT [address] [place] [address] Endocrinology 05/25/24 Lydia Grande SANDSTONE SPLITTER.COMMUNITY DEVELOPMENT COORDINATOR [address] [facility] [address] Contract Coordinator Internal Medicine 06/25/24 Davon Wolfe APRN.LOCKER ATTENDANT [address] [place] [address] Contract Coordinator Internal Medicine 06/25/24 Rural 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 Relationship Specialty Start Date End Date Octavio Reza MD [address] [place] [address] PCP - General Internal Medicine 08/24/10 [facility] [address] [facility] [place] [address] Pharmacist Pharmacy 01/12/24 Renetta Mcgee SANDSTONE SPLITTER.LOCKER ATTENDANT [address] [place] [place] [address] Endocrinology 05/25/24 Lydia Grande SANDSTONE SPLITTER.COMMUNITY DEVELOPMENT COORDINATOR [address] [place] [address] Contract Coordinator Internal Medicine 06/25/24 Davon Wolfe SANDSTONE SPLITTER.LOCKER ATTENDANT [address] [facility] [place] [address] Contract Coordinator Internal Medicine 06/25/24 Rural 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 Relationship Specialty Start Date End Date Octavio Reza MD [address] [facility] [place] [address] PCP - General Internal Medicine 08/24/10 [facility] [address] [facility] [place] [address] Pharmacist Pharmacy 01/12/24 Renetta Mcgee SANDSTONE SPLITTER.LOCKER ATTENDANT [address] [place] [address] Endocrinology 05/25/24 Lydia Grande, SANDSTONE SPLITTER.COMMUNITY DEVELOPMENT COORDINATOR [address] [facility] [place] [address] Contract Coordinator Internal Medicine 06/25/24 Davon Wolfe SANDSTONE SPLITTER.LOCKER ATTENDANT [address] [facility] [place] [address] Contract Coordinator Internal Medicine 06/25/24 Rural 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 Relationship Specialty Start Date End Date Octavio Reza MD [address] [place] [address] PCP - General Internal Medicine 08/24/10 Charis Lucas [facility] [address] [facility] [place] [address] Pharmacist Pharmacy 01/12/24 Renetta Mcgee, SANDSTONE SPLITTER.LOCKER ATTENDANT [address] [place] [address] Endocrinology 05/25/24 Lydia Grande, SANDSTONE SPLITTER.COMMUNITY DEVELOPMENT COORDINATOR [address] [facility] [address] Contract Coordinator Internal Medicine 06/25/24 Davon Wolfe SANDSTONE SPLITTER.LOCKER ATTENDANT [address] [facility] [place] [address] Contract Coordinator Internal Medicine 06/25/24 Rural 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 Relationship Specialty Start Date End Date Octavio Reza MD [address] [facility] [address] PCP - General Internal Medicine 08/24/10 [facility] [address] [facility] [place] [address] Pharmacist Pharmacy 01/12/24 Renetta Mcgee SANDSTONE SPLITTER.LOCKER ATTENDANT [address] [place] [address] Endocrinology 05/25/24 Lydia Grande, SANDSTONE SPLITTER.COMMUNITY DEVELOPMENT COORDINATOR [address] [facility] [address] Contract Coordinator Internal Medicine 06/25/24 Davon Wolfe SANDSTONE SPLITTER.LOCKER ATTENDANT [address] [facility] [place] [address] Contract Coordinator Internal Medicine 06/25/24 Rural 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 Relationship Specialty Start Date End Date Octavio Reza MD [address] [facility] [address] PCP - General Internal Medicine 08/24/10 [facility] [address] [facility] [place] [address] Pharmacist Pharmacy 01/12/24 Renetta Mcgee SANDSTONE SPLITTER.LOCKER ATTENDANT [address] [place] [address] Endocrinology 05/25/24 Lydia Grande, SANDSTONE SPLITTER.COMMUNITY DEVELOPMENT COORDINATOR [address] [facility] [address] Contract Coordinator Internal Medicine 06/25/24 Davon Wolfe SANDSTONE SPLITTER.LOCKER ATTENDANT [address] [facility] [place] [address] Contract Coordinator Internal Medicine 06/25/24 Rural 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 Relationship Specialty Start Date End Date Octavio Reza MD [address] [place] [address] PCP - General Internal Medicine 08/24/10 [facility] [address] [facility] [place] [address] Pharmacist Pharmacy 01/12/24 Renetta Mcgee, SANDSTONE SPLITTER.LOCKER ATTENDANT [address] [place] [address] Endocrinology 05/25/24 Lydia Grande, SANDSTONE SPLITTER.COMMUNITY DEVELOPMENT COORDINATOR [address] [place] [address] Contract Coordinator Internal Medicine 06/25/24 Davon Wolfe SANDSTONE SPLITTER.LOCKER ATTENDANT [address] [facility] [place] [address] Contract Coordinator Internal Medicine 06/25/24 Rural 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 Relationship Specialty Start Date End Date Octavio Reza MD [address] [place] [address] PCP - General Internal Medicine 08/24/10 [facility] [address] [place] [address] Pharmacist Pharmacy 01/12/24 Renetta Mcgee, SANDSTONE SPLITTER.LOCKER ATTENDANT [address] [place] [address] Endocrinology 05/25/24 Lydia Grande, SANDSTONE SPLITTER.COMMUNITY DEVELOPMENT COORDINATOR [address] [facility] [place] [address] Contract Coordinator Internal Medicine 06/25/24 Davon Wolfe SANDSTONE SPLITTER.LOCKER ATTENDANT [address] [place] [address] Contract Coordinator Internal Medicine 06/25/24 Rural 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 Relationship Specialty Start Date End Date Octavio Reza MD [address] [place] [address] PCP - General Internal Medicine 08/24/10 [facility] [address] [place] [address] Pharmacist Pharmacy 01/12/24 Renetta Mcgee SANDSTONE SPLITTER.LOCKER ATTENDANT [address] [place] [address] Endocrinology 05/25/24 Lydia Grande SANDSTONE SPLITTER.COMMUNITY DEVELOPMENT COORDINATOR [address] [place] [address] Contract Coordinator Internal Medicine 06/25/24 Davon Wolfe SANDSTONE SPLITTER.LOCKER ATTENDANT [address] [place] [address] Contract Coordinator Internal Medicine 06/25/24 Rural 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 Relationship Specialty Start Date End Date Octavio Reza MD [address] [place] [address] PCP - General Internal Medicine 08/24/10 Charis Lucas, [facility] [address] [place] [address] Pharmacist Pharmacy 01/12/24 Renetta cMgee SANDSTONE SPLITTER.LOCKER ATTENDANT [address] [place] [address] Endocrinology 05/25/24 Lydia Grande, SANDSTONE SPLITTER.COMMUNITY DEVELOPMENT COORDINATOR [address] [place] [address] Contract Coordinator Internal Medicine 06/25/24 Davon Wolfe, SANDSTONE SPLITTER.LOCKER ATTENDANT [address] [place] [address] Contract Coordinator Internal Medicine 06/25/24 Rural 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 Relationship Specialty Start Date End Date Octavio Reza MD [address] [place] [address] PCP - General Internal Medicine 08/24/10 [facility] [address] [place] [address] Pharmacist Pharmacy 01/12/24 Renetta Mcgee, SANDSTONE SPLITTER.LOCKER ATTENDANT [address] [facility] [place] [address] Endocrinology 05/25/24 Lydia Grande, SANDSTONE SPLITTER.COMMUNITY DEVELOPMENT COORDINATOR [address] [place] [address] Contract Coordinator Internal Medicine 06/25/24 Davon Wolfe, SANDSTONE SPLITTER.LOCKER ATTENDANT [address] [place] [address] Contract Coordinator Internal Medicine 06/25/24 Rural 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 Relationship Specialty Start Date End Date Octavio Reza MD [address] [place] [address] PCP - General Internal Medicine 08/24/10 [facility] [address] [place] [address] Pharmacist Pharmacy 01/12/24 Renetta Mcgee APRN.LOCKER ATTENDANT [address] [place] [address] Endocrinology 05/25/24 Lydia Grande, SANDSTONE SPLITTER.COMMUNITY DEVELOPMENT COORDINATOR [address] [place] [address] Contract Coordinator Internal Medicine 06/25/24 Davon Wolfe SANDSTONE SPLITTER.LOCKER ATTENDANT [address] [place] [address] Contract Coordinator Internal Medicine 06/25/24 Rural 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 Relationship Specialty Start Date End Date Octavio Reza MD [address] [place] [address] PCP - General Internal Medicine 08/24/10 Charis Lucas [facility] [address] [place] [address] Pharmacist Pharmacy 01/12/24 Renetta Mcgee SANDSTONE SPLITTER.LOCKER ATTENDANT [address] [place] [address] Endocrinology 05/25/24 Lydia Grande, SANDSTONE SPLITTER.COMMUNITY DEVELOPMENT COORDINATOR [address] [place] [address] Contract Coordinator Internal Medicine 06/25/24 Davon Wolfe SANDSTONE SPLITTER.LOCKER ATTENDANT [address] [place] [address] Contract Coordinator Internal Medicine 06/25/24 Rural 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 Relationship Specialty Start Date End Date Octavio Reza MD [address] [place] [address] PCP - General Internal Medicine 08/24/10 Charis Lucas RPh [address] [place] [address] Pharmacist Pharmacy 01/12/24 Renetta Mcgee, SANDSTONE SPLITTER.LOCKER ATTENDANT [address] [place] [place] [address] Endocrinology 05/25/24 Lydia Grande, SANDSTONE SPLITTER.COMMUNITY DEVELOPMENT COORDINATOR [address] [place], [place] [address] Contract Coordinator Internal Medicine 06/25/24 Davon Wolfe, SANDSTONE SPLITTER.LOCKER ATTENDANT [address] [facility] [place] [address] Contract Coordinator Internal Medicine 06/25/24 Team Status: Active Member [...] June 07, 2024 Areli Estevez PA, PA Attending Provider Active Start: June 07, [...] June 07, 2024 Areli Estevez PA, PA Other Provider Active Start: June 07, 2024 Dr. Ray Maradiaga MD Attending Provider Active Start: June 07, 2024 Team Status: Inactive Member Role Status Dates Dr. Octavio Reza MD Primary Care Provider Active Start: June 08, 2024 End: June 08, 2024 Dr. Reyna Moznon DO Attending Provider Active Start: June 08, [...] September 23, 2024 End: September 23, 2024 Rural 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 Relationship Specialty Start Date End Date Octavio Reza MD [address] [place], [place] [address] PCP - General Internal Medicine 08/24/10 Charis Lucas [facility] [address] [place], [place] [address] Pharmacist Pharmacy 01/12/24 Renetta Mcgee, SANDSTONE SPLITTER.LOCKER ATTENDANT [address] [place], [place] [address] Endocrinology 05/25/24 Lydia Grande, SANDSTONE SPLITTER.COMMUNITY DEVELOPMENT COORDINATOR [address] [place], [place] [address] Contract Coordinator Internal Medicine 06/25/24 Davon Wolfe APRN.CNP [address] [place] [address] [facility] Internal [facility] 10/09/24 Team Status: Inactive Member Role Status [...] October 19, 2024 End: October 19, 2024 Rural 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 Relationship Specialty Start Date End Date Octavio Reza MD [address] [place], [place] [address] PCP - General Internal Medicine 08/24/10 Charis Lucas RPh [address] [place], [place] [address] Pharmacist Pharmacy 01/12/24 Renetta Mcgee APRN.LOCKER ATTENDANT [address] [place] [address] Endocrinology 05/25/24 Lydia Grande, SANDSTONE SPLITTER.COMMUNITY DEVELOPMENT COORDINATOR [address] [place] [address] Contract Coordinator Internal Medicine 06/25/24 Davon Wolfe SANDSTONE SPLITTER.LOCKER ATTENDANT [address] [place] [address] [facility] Internal Medicine 10/09/24 Rural 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 Relationship Specialty Start Date End Date Octavio Reza MD [address] [place] [address] PCP - General Internal Medicine 08/24/10 Charis Lucas [facility] [address] [place] [address] Pharmacist Pharmacy 01/12/24 Renetta Mcgee SANDSTONE SPLITTER.LOCKER ATTENDANT [address] [place] [address] Endocrinology 05/25/24 Lydia Grande, SANDSTONE SPLITTER.COMMUNITY DEVELOPMENT COORDINATOR [address] [place] [address] Contract Coordinator Internal Medicine 06/25/24 Davon Wolfe SANDSTONE SPLITTER.LOCKER ATTENDANT [address] [place] [address] [facility] Internal Medicine 10/09/24 Team Status: Inactive Member [...] October 24, 2024 End: October 24, 2024 Rural 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 Relationship Specialty Start Date End Date Octavio Reza MD [address] [facility] [place] [address] PCP - General Internal Medicine 08/24/10 [facility] [address] [facility] [place] [address] Pharmacist Pharmacy 01/12/24 Renetta Mcgee, SANDSTONE SPLITTER.LOCKER ATTENDANT [address] [facility] [place] [place] [address] Endocrinology 05/25/24 Lydia Grande, SANDSTONE SPLITTER.COMMUNITY DEVELOPMENT COORDINATOR [address] [facility] [place] [address] Contract Coordinator Internal Medicine 06/25/24 Davon Wolfe, SANDSTONE SPLITTER.LOCKER ATTENDANT [address] [facility] [place] [address] Contract Coordinator Internal Medicine 10/09/24 Rural 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 Relationship Specialty Start Date End Date Octavio Reza MD [address] [facility] [place] [address] PCP - General Internal Medicine 08/24/10 [facility] [address] [facility] [place] [address] Pharmacist Pharmacy 01/12/24 Renetta Mcgee SANDSTONE SPLITTER.LOCKER ATTENDANT [address] [place] [address] Endocrinology 05/25/24 Lydia Grande, SANDSTONE SPLITTER.COMMUNITY DEVELOPMENT COORDINATOR [address] [place] [address] Contract Coordinator Internal Medicine 06/25/24 Davon Wolfe, SANDSTONE SPLITTER.LOCKER ATTENDANT [address] [place] [address] Contract Coordinator Internal Medicine 10/09/24 Team Status: Inactive Member [...] November 03, 2024 End: November 03, 2024 Rural 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 Relationship Specialty Start Date End Date Octavio Reza MD [address] [place] [address] PCP - General Internal Medicine 08/24/10 Charis Lucas [facility] [address] [place] [address] Pharmacist Pharmacy 01/12/24 Renetta Mcgee, SANDSTONE SPLITTER.LOCKER ATTENDANT [address] [place] [address] Endocrinology 05/25/24 Lydia Grande, SANDSTONE SPLITTER.COMMUNITY DEVELOPMENT COORDINATOR [address] [facility] [place], [place] [address] Contract Coordinator Internal Medicine 06/25/24 Davon Wolfe SANDSTONE SPLITTER.LOCKER ATTENDANT [address] [facility] [place] [address] Contract Coordinator Internal Medicine 10/09/24 Team Status: Inactive Member [...] November 29, 2024 End: November 29, 2024 Rural 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 Relationship Specialty Start Date End Date Octavio Reza MD [address] [facility] [place] [address] PCP - General Internal Medicine 08/24/10 Charis Lucas RPh [address] [facility] [place] [id number] Pharmacist Pharmacy 01/12/24 Renetta Mcgee, SANDSTONE SPLITTER.LOCKER ATTENDANT [address] [place] [address] Endocrinology 05/25/24 Davon Wolfe SANDSTONE SPLITTER.LOCKER ATTENDANT [address] [place] [address] Contract Coordinator Internal Medicine 10/09/24 Lydia Grande, SANDSTONE SPLITTER.COMMUNITY DEVELOPMENT COORDINATOR [address] [place] [address] Contract Coordinator Internal Medicine 12/05/24 Rural 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 Relationship Specialty Start Date End Date Octavio Reza MD [address] [place] [address] PCP - General Internal Medicine 08/24/10 Charis Lucas Formerly [facility] [address] [place] [address] Pharmacist Pharmacy 01/12/24 Renetta Mcgee, SANDSTONE SPLITTER.LOCKER ATTENDANT [address] [place] [address] Endocrinology 05/25/24 Davon Wolfe SANDSTONE SPLITTER.LOCKER ATTENDANT [address] [place] [address] Contract Coordinator Internal Medicine 10/09/24 Lydia Grande, SANDSTONE SPLITTER.COMMUNITY DEVELOPMENT COORDINATOR [address] [place] [address] Contract Coordinator Internal Medicine 12/05/24 Rural 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 Relationship Specialty Start Date End Date Octavio Reza MD [address] [place] [address] PCP - General Internal Medicine 08/24/10 Charis Lucas Formerly [facility] [address] [facility] [place], [place] [address] Pharmacist Pharmacy 01/12/24 Renetta Mcgee, SANDSTONE SPLITTER.LOCKER ATTENDANT [address] [place], [place] [address] Endocrinology 05/25/24 Davon Wolfe, SANDSTONE SPLITTER.LOCKER ATTENDANT [address] [facility] [place], [place] [id number] Contract Coordinator Internal Medicine 10/09/24 Lydia Grande, SANDSTONE SPLITTER.COMMUNITY DEVELOPMENT COORDINATOR [address] [facility] [place] [id number] Contract Coordinator Internal Medicine 12/05/24 Team Status: Active Member [...] December 19, 2024 End: December 19, 2024 Rural 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 Relationship Specialty Start Date End Date Octavio Reza MD [address] [facility] [place], [place] [id number] PCP - General Internal Medicine 08/24/10 Charis Lucas Formerly [facility] [address] [facility] [place] [address] Pharmacist Pharmacy 01/12/24 Renetta Mcgee APRN.LOCKER ATTENDANT [address] [place] [address] Endocrinology 05/25/24 Davon Wolfe SANDSTONE SPLITTER.LOCKER ATTENDANT [address] [place] [address] Contract Coordinator Internal Medicine 10/09/24 Lydia Grande, SANDSTONE SPLITTER.COMMUNITY DEVELOPMENT COORDINATOR [address] [place] [address] Contract Coordinator Internal Medicine 12/05/24 Rural 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 Relationship Specialty Start Date End Date Octavio Reza MD [address] [place] [address] PCP - General Internal Medicine 08/24/10 Charis Lucas Formerly [facility] [address] [place] [address] Pharmacist Pharmacy 01/12/24 Renetta Mcgee APRN.LOCKER ATTENDANT [address] [place] [address] Endocrinology 05/25/24 Davon Wolfe SANDSTONE SPLITTER.LOCKER ATTENDANT [address] [place] [address] Contract Coordinator Internal Medicine 10/09/24 Lydia Grande SANDSTONE SPLITTER.COMMUNITY DEVELOPMENT COORDINATOR [address] [place] [address] Contract Coordinator Internal Medicine 12/05/24 Team Status: Inactive Member [...] Status: Inactive Member Role/Relationship Status Dates Dr. Octaivo Reza MD Primary Care Provider Active Start: [...] 2025 End: January 14, 2025 Dr. Octavio Reza MD Referring Provider Active Start: January 14, 2025 End: January 14, 2025 Jae Lee FOLDER MACHINE ADJUSTER, FOLDER MACHINE ADJUSTER-C Attending Provider Active S tart: January 14, 2025 End: January 14, 2025 Rural 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 Relationship Specialty Start Date End Date Octavio Reza MD [address] [place] [address] PCP - General Internal Medicine 08/24/10 Charis Lucas Formerly [facility] [address] [facility] [place] [address] Pharmacist Pharmacy 01/12/24 Renetta Mcgee, SANDSTONE SPLITTER.LOCKER ATTENDANT [address] [facility] [place] [address] Endocrinology 05/25/24 Davon Wolfe, SANDSTONE SPLITTER.LOCKER ATTENDANT [address] [place] [address] Contract Coordinator Internal Medicine 10/09/24 Lydia Grande, SANDSTONE SPLITTER.COMMUNITY DEVELOPMENT COORDINATOR [address] [place] [address] Contract Coordinator Internal Medicine 12/05/24 Team Status: Inactive Member Role/Relationship Status Dates [...] Status: Active Member Role/Relationship Status Dates Dr. lAex Gan MD Attending Provider Active Start: November 03, 2024 Dr. Zay Juan DO Referring Provider Active Start: November 03, 2024 Team Status: Inactive Member Role/Relationship Status Dates Dr. Octavio Reza MD Primary Care Provider Active Start: November 15, 2024 End: November 15, 2024 Dr. Octvaio Reza MD Referring Provider Active Start: November 15, 2024 End: November 15, 2024 Areli Estevez PA, PA Attending Provider Active Start: November 15, 2024 End: November 15, 2024 Team Status: Inactive Member Role/Relationship Status Dates Dr. cOtavio Reza MD Primary Care Provider Active Start: [...] 2025 End: January 14, 2025 Dr. Octavio Reza MD Referring Provider Active Start: January 14, 2025 End: January 14, 2025 Jae Lee FOLDER MACHINE ADJUSTER, FOLDER MACHINE ADJUSTER-C Attending Provider Active S tart: January 14, 2025 End: January 14, 2025 Team Status: Inactive Member Role/Relationship Status Dates Dr. Octavio Reza MD Primary Care Provider Active Start: January 25, 2025 End: January 25, 2025 Dr. Mark Leong MD Referring Provider Active Sta rt: January 25, 2025 End: January 25, 2025 Dr. Mark Leong MD Emergency Provider Active Sta rt: January 25, 2025 End: January 25, 2025 Rural 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 Relationship Specialty Start Date End Date Octavio Reza MD [address] [place], [place] [address] PCP - General Internal Medicine 08/24/10 Charis Lucas RPh [address] [place], [place] [phone] Pharmacist Pharmacy 01/12/24 Renetta Mcgee APRN.LOCKER ATTENDANT [address] [place], [place] [id number] [phone] Endocrinology 05/25/24 Davon Wolfe, SANDSTONE SPLITTER.LOCKER ATTENDANT [address] [place] [address] Contract Coordinator Internal Medicine 10/09/24 Lydia Grande, SANDSTONE SPLITTER.COMMUNITY DEVELOPMENT COORDINATOR [address] [place] [address] Contract Coordinator Internal Medicine 12/05/24 Rural 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 Relationship Specialty Start Date End Date Octavio Reza MD [address] [place] [address] PCP - General Internal Medicine 08/24/10 Charis Lucas Former[facility] [address] [place] [address] Pharmacist Pharmacy 01/12/24 Renetta Mcgee, SANDSTONE SPLITTER.LOCKER ATTENDANT [address] [facility] [place] [address] Endocrinology 05/25/24 Davon Wolfe, SANDSTONE SPLITTER.LOCKER ATTENDANT [address] [place] [address] Contract Coordinator Internal Medicine 10/09/24 Lydia Grande, SANDSTONE SPLITTER.COMMUNITY DEVELOPMENT COORDINATOR [address] [place] [address] Contract Coordinator Internal Medicine 12/05/24 Rural 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 Relationship Specialty Start Date End Date Octavio Reza MD [address] [place] [address] PCP - General Internal Medicine 08/24/10 Charis Lucas Former[facility] [address] [place] [address] Pharmacist Pharmacy 01/12/24 Renetta Mcgee APRN.LOCKER ATTENDANT [address] [place] [address] Endocrinology 05/25/24 Davon Wolfe APRN.LOCKER ATTENDANT [address] [place] [address] Contract Coordinator Internal Medicine 10/09/24 Lydia Graned APRN.COMMUNITY DEVELOPMENT COORDINATOR [address] [place] [address] [facility] Internal Medicine 12/05/24 Rural 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 Relationship Specialty Start Date End Date Octavio Reza MD [address] [place] [address] PCP - General Internal Medicine 08/24/10 Charis Lucas Former[facility] [address] [place] [address] Pharmacist Pharmacy 01/12/24 Renetta Mcgee APRN.LOCKER ATTENDANT [address] [place] [address] Endocrinology 05/25/24 Davon Wolfe APRN.LOCKER ATTENDANT [address] [place] [address] Contract Coordinator Internal Medicine 10/09/24 Lydia Grande APRN.COMMUNITY DEVELOPMENT COORDINATOR [address] [place] [address] Contract Coordinator Internal Medicine 12/05/24 Goals (unrecognized section and [...] section and content) DATE CREATED AUTHOR 11/01/2023 [facility] DATE CREATED AUTHOR AUTHOR'S ORGANIZ ATION 04/01/2025 [facility] DATE CREATED AUTHOR AUTHOR'S ORGANIZ ATION 04/03/2025 [facility] FOR RECORDS PERTAINING TO PATIENTS WHO ARE [...] BE BASED ON THE PRIMARY CLINICAL RECORDS. [facility]. provides no warranty or guarantee of the accuracy or completeness of information in this document.
[2025-04-04 21:00] VITALS: BP 137/58; PULSE 68; RESP 18; O2SAT 95
[2025-04-04 21:08] LABS: Anion Gap 12 (5-15); BUN 18 mg/dL (4-19); BUN/Creat Ratio 21.1 RATIO (10-20); Calcium,Total 9.6 mg/dL (7.6-11.0); Carbon Dioxide 26.1 mmol/L (21.0-32.0); Chloride 101 mmol/L (98-108); Estimated Creatinine Clearance 75.63 ml/min (50-250); Glucose 111 mg/dL (70-99); Potassium 3.9 mmol/L (3.3-5.1)
[2025-04-04 22:00] VITALS: BP 132/64; PULSE 61; RESP 16; O2SAT 96
--- NOTE | 2025-04-04 22:09 | EX.ED.DYSGE1 ---
HPI History of Present Illness Chief Complaint: Palpitations Detail of Chief Complaint: Palpitations while at rest, heart rate on the pulse ox was low 60s upper 50 Informant: patient and spouse/S.O. Onset/Context/Timing Onset: Today and Hours Context: Sudden Onset Timing: Intermittent (1 to 1.5 hours) Quality: Palpitations Location: Mid chest Current Severity: Gone Maximum Severity: Moderate Worsened by: Nothing Relieved by: Nothing Associated Symptoms Associated Symptoms: None Narrative Narrative: Patient is a 79-year-old woman. She has history of hypertension, obstructive sleep apnea, type 2 diabetes, palpitations, asthma, GERD, remote history of DVT, paroxysmal supraventricular tachycardia who presents with palpitations. This occurred at rest. Lasted 1 to 1.5 hours. She had no other associated symptoms. It did not radiate. She denies fever, chills night sweats. She denies upper respiratory tract infectious symptoms. She denies chest pain, pressure, tightness heaviness. She denies dyspnea, dyspnea exertion from baseline, orthopnea or PND. She does endorse swelling of her feet which is chronic. She denies nausea, vomiting or diarrhea. Denies abdominal pain. Prior similar symptoms: Yes (Per review of old records) Recent Illness/Hospitalization: No PFSH PFSH Medical History THAIS (obstructive sleep apnea) Hyperglycemia due to type 2 diabetes mellitus Palpitations Sinus bradycardia Abnormal EKG Essential hypertension Premature atrial contractions Charcot's joint of left foot Asthma GERD (gastroesophageal reflux disease) History of DVT (deep vein thrombosis) Bimalleolar ankle fracture Paroxysmal SVT (supraventricular tachycardia) Premature ventricular contraction Hyperlipidemia Diabetes mellitus, type II Home Medications ?Medication ?Instructions ?Recorded ?Last Taken ?Type ramipril 10 mg capsule 10 mg PO BID HEART 01/19/19 02/06/24 History cholecalciferol (vitamin D3) 1,250 1,250 mcg PO QWEEK SUPPLEMENT 12/03/19 02/05/24 History mcg (50,000 unit) capsule budesonide-formoterol HFA 160 2 puff inhalation BID ASTHMA 12/21/21 02/06/24 History mcg-4.5 mcg/actuation aerosol inhaler zolpidem 5 mg tablet 2.5 mg PO QHS PRN Insomnia 02/11/22 Unknown History insulin lispro 100 unit/mL 6 unit subcut TIDCM dm 06/22/22 02/06/24 History subcutaneous solution omeprazole magnesium 20 mg 20 mg PO DAILY GERD 06/22/22 02/06/24 History tablet,delayed release (Prilosec OTC) metoprolol tartrate 50 mg tablet 25 mg PO Q12H heart rate, BP 10/01/23 02/06/24 History blood sugar diagnostic (OneTouch 02/06/24 Unknown History Ultra Test strips) mometasone 0.1 % topical cream 1 applic topical QDAY PRN skin 06/13/24 Unknown History irritation furosemide 20 mg tablet 10 mg PO DAILY water pill 11/15/24 Unknown History aspirin 81 mg tablet,delayed 81 mg PO BID heart health 01/14/25 Unknown History release insulin glargine 100 unit/mL (3 22 unit subcut QHS 01/14/25 Unknown History mL) subcutaneous pen (Lantus Solostar U-100 Insulin) amlodipine 2.5 mg tablet 2.5 mg PO .COMPLEX 02/08/25 Unknown History Allergy/AdvReac Type Severity Reaction Status Date / Time hydromorphone Allergy Severe Anaphylaxis Verified 04/04/25 19:41 tramadol Allergy Severe Anaphylaxis Verified 04/04/25 19:41 amiodarone Allergy Intermediate Swelling Verified 04/04/25 19:41 Vernon And Derivatives Allergy Intermediate Hives Verified 04/04/25 19:41 morphine Allergy Intermediate confusion Verified 04/04/25 19:41 moxifloxacin Allergy Intermediate Shortness Verified 04/04/25 19:41 of breath nabumetone Allergy Intermediate damaged Verified 04/04/25 19:41 kidney penicillin G Allergy Intermediate TURNS BLUE Verified 04/04/25 19:41 propoxyphene Allergy Intermediate PT UNSURE Verified 04/04/25 19:41 OF REACTION amlodipine Allergy Mild Abd Verified 04/04/25 19:41 cramps/diarrhea desloratadine Allergy Mild headache Verified 04/04/25 19:41 glutamine (From Airborne Allergy Mild Itching Verified 04/04/25 19:41 (ascorbate sodium)) herbal complex no.124 (From Allergy Mild Itching Verified 04/04/25 19:41 Airborne (ascorbate sodium)) hydrocodone (From [place]) Allergy Mild dystonia Verified 04/04/25 19:41 lysine HCl (From Airborne Allergy Mild Itching Verified 04/04/25 19:41 (ascorbate sodium)) multivitamin with minerals Allergy Mild Itching Verified 04/04/25 19:41 (From Airborne (ascorbate sodium)) pravastatin Allergy Unknown unknown Verified 04/04/25 19:41 rosuvastatin (From Crestor) Allergy Unknown myalgias Verified 04/04/25 19:41 simvastatin Allergy Unknown unknown Verified 04/04/25 19:41 escitalopram Allergy Other Verified 04/04/25 19:41 hydrochlorothiazide Allergy Other Verified 04/04/25 19:41 oseltamivir (From Tamiflu) AdvReac Severe HALLUCINATI Verified 04/04/25 19:41 ONS Iptazst-KPH-JqO Reductase AdvReac Severe myalgias Verified 04/04/25 19:41 Inhibitor (Oiclmix-Yco-Dmx Reductase Inhibitor) amoxicillin (From Augmentin) AdvReac Other Verified 04/04/25 19:41 clavulanic acid (From AdvReac Other Verified 04/04/25 19:41 Augmentin) codeine AdvReac Nausea Verified 04/04/25 19:41 naproxen (From Naprosyn) AdvReac Nausea Verified 04/04/25 19:41 Family History Mother Aortic stenosis Presence of permanent cardiac pacemaker Surgical History History of herniorrhaphy Status post ORIF of fracture of ankle History of tonsillectomy History of cholecystectomy Social History household members: spouse housing: house Smoking Status: Former smoker alcohol intake: never substance use type: does not use caffeine: Yes Type: coffee Number of servings: 3 ROS ROS ED Constitutional Constitutional ED: Denies chills, fever(s), subjective or sweats Eyes Eyes: Denies blurry vision, change in vision or diplopia ENT ENT ED: Denies ear pain, rhinorrhea or sore throat Cardiovascular Cardiovascular: Reports palpitations; Denies chest pain or racing heartbeat Respiratory/Chest Respiratory/Chest: Denies cough or dyspnea Gastrointestinal Gastrointestinal: Denies abdominal pain, constipation, diarrhea or melena Musculoskeletal Musculoskeletal: Denies arthralgias, back pain or myalgias Psychiatric Psychiatric: Denies anxiety or depression Endocrine Endocrinology: Denies cold intolerance or heat intolerance Hematologic/Lymphatic Hematologic/Lymphatic: Reports systems reviewed and no addt'l complaints, except as documented EXAM Physical Exam Const Vital Signs: 04/04/25 19:35 04/04/25 20:22 04/04/25 20:35 Temperature 97.9 F Temperature Source Oral Pulse Rate 55 L 66 Respiratory Rate 16 14 Respiratory Effort Normal Blood Pressure 156/60 H 136/66 H Blood Pressure Mean 92 89 Pulse Ox 96 98 Oxygen Delivery Method Room Air Room Air 04/04/25 21:00 Temperature Temperature Source Pulse Rate 68 Respiratory Rate 18 Respiratory Effort Blood Pressure 137/58 H Blood Pressure Mean 84 Pulse Ox 95 Oxygen Delivery Method Positive well nourished and well developed Constitutional Narrative: BMI is 41.2. General Appearance ED: well developed, NAD and pallor HEENT Reports moist mucous membranes HEENT Narrative: Head is atraumatic normocephalic. Ears normal Eyes PERRL and EOMs intact bilaterally General Eye ED: Negative for pale conjunctiva or scleral icterus Neck no lymphadenopathy, supple and no JVD Resp normal respiratory effort and clear to auscultation bilaterally Cardio regular rate, regular rhythm, S1 normal heart sound, S2 normal heart sound and no murmurs GI normal to inspection, nondistended, normoactive bowel sounds, non-tender, non-distended and no masses; Negative for hepatosplenomegaly Back/Spine no CVA tenderness Extremity General Extremety ED: Yes edema General Extremity: edema Neuro oriented x3 and CN's II-XII intact bilaterally Sensorium / Orientation: alert Psych mental status grossly normal Skin no rashes or lesions noted, no wounds and skin turgor normal General Skin Exam: pallor; Negative for elasticity normal or jaundice MDM MDM MDM Narrative Medical decision making narrative: Patient presents with palpitations. Heart rate is normal. Will obtain electrolyte panel to assess for hypokalemia. Was placed on a monitor to assess for any ectopy since she has history of dysrhythmia. And EKG was obtained to see if there are any evidence of acute ischemia. Lab Data Attestation: I reviewed the patient's lab results. Lab results narrative: Electrolyte panel is markable for slightly of glucose of 111. Labs: Laboratory Results - last 24 hr 04/04/25 20:27 Sodium 139 Potassium 3.9 Chloride 101 Carbon Dioxide 26.1 Anion Gap 12 BUN 18 Creatinine 0.86 Estim Creat Clear Calc 75.63 Est GFR (MDRD) Non-Af 69 BUN/Creatinine Ratio 21.1 H Glucose 111 H Calcium 9.6 EKG Initial EKG: Attestation: I personally reviewed and interpreted this EKG as follows: Interpretation: Sinus Rhythm (Rate is 64. EKG is normal. Parables under 16 ms. QS duration 86 ms. QT duration 426 ms. [place] is normal.) Treatment and Re-Evaluation :: Patient's questions were answered. She was discharged to home. Discharge Plan Triage Chief Complaint: Palpitations ED Provider: Mark Castillo Dx/Rx/DC Orders Clinical Impression: Heart palpitations, Obstructive sleep apnea, Essential hypertension, Hyperlipidemia Instructions: ED Heart Palpitations Prescriptions: No Action aspirin 81 mg tablet,delayed release (DR/EC) 81 mg PO BID cholecalciferol (vitamin D3) 1,250 mcg (50,000 unit) capsule 1,250 mcg PO QWEEK insulin lispro 100 unit/mL solution 6 unit subcut TIDCM Protocol: 4. Sliding Scale Insulin High-Med Dosing Condition: 150-199 mg/dl = 2 units Condition: 200-259 mg/dl = 4 units Condition: 260-324 mg/dl = 6 units Condition: 325-374 mg/dl = 8 units Condition: 375-409 mg/dl = 10 units Condition: 410-449 mg/dl = 11 units Condition: Greater than 449 call physician Protocol Text: - Use for Total Daily Dose of Insulin 56-80 units - Patient who are insulin resistant or septic HIGH MEDIUM DOSING ALGORITHM Patient Comments: INJECT 3 TO 10 UNITS SUBCUTANEOUSLY BEFORE MEALS DIRECTED furosemide 20 mg tablet 10 mg PO DAILY budesonide-formoterol 160-4.5 mcg/actuation HFA aerosol inhaler 2 puff inhalation BID omeprazole magnesium [Prilosec OTC] 20 mg tablet,delayed release (DR/EC) 20 mg PO DAILY mometasone 0.1 % cream 1 applic topical QDAY PRN (Reason: skin irritation) ramipril 10 MG capsule 10 mg PO BID Patient Comments: TAKE 1 CAPSULE BY MOUTH TWICE DAILY zolpidem 5 mg Tablet 2.5 mg PO QHS PRN (Reason: Insomnia) metoprolol tartrate 50 mg tablet 25 mg PO Q12H Patient Comments: takes half tablet in morning and night (DME) LellanTouch Ultra Test Strip MISCELLANEOUS Patient Comments: [NO ORIGINAL SIG] insulin glargine [Lantus Solostar U-100 Insulin] 100 unit/mL (3 mL) insulin pen 22 unit subcut QHS amlodipine 2.5 mg tablet 2.5 mg PO .COMPLEX Rx Instructions: 2.5 mg orally Take 2 tabs QAM, 1 tab QPM; Primary Care Provider: Luzma Palencia Referrals: Luzma Palencia MD [Primary Care Provider, Internal Medicine] - As Needed Activity Restrictions/Additional Instructions: Your blood sugar was 111 Print Language: Greenlandic Disposition Disposition: Home, Self Care
[2025-04-04 22:24] VITALS: BP 132/64; PULSE 61; RESP 16; TEMP 36.6; O2SAT 96
== END 2025-04-04 22:24 | disposition home or self-care (01) ==
PROVIDERS: Emergency Provider Emergency Medicine; PCP Internal Medicine; Visit Provider Emergency Medicine
DX: R00.2 Palpitations (principal); E11.9 Type 2 diabetes mellitus without complications; Z79.4 Long term (current) use of insulin; M79.89 Other specified soft tissue disorders; I10 Essential (primary) hypertension; K21.9 Gastro-esophageal reflux disease without esophagitis; E78.5 Hyperlipidemia, unspecified; I47.10 Supraventricular tachycardia, unspecified; G47.33 Obstructive sleep apnea (adult) (pediatric); J45.909 Unspecified asthma, uncomplicated; Z79.82 Long term (current) use of aspirin; Z79.51 Long term (current) use of inhaled steroids; Z86.718 Personal history of other venous thrombosis and embolism; Z79.899 Other long term (current) drug therapy; Z90.49 Acquired absence of other specified parts of digestive tract; Z87.891 Personal history of nicotine dependence
CPT/HCPCS: 80048; 93005; 99284; A4216

== ENCOUNTER 2025-05-19 18:36 | Emergency (ER) | payer MEDICARE, SELFPAY ==
[2025-05-19] VITALS (7 sets, daily range): BP systolic 127–165; BP diastolic 58–75; PULSE 56–68; RESP 12–20; TEMP 36.1–36.6; O2SAT 94–98; BMI 40.9
--- NOTE | 2025-05-19 18:49 | EKG12_ITS ---
Test Reason : CP
--- NOTE | 2025-05-19 19:05 | ED.VIS.CHEST ---
HPI History of Present Illness Chief Complaint: Chest Pain Informant: patient and spouse/S.O. Onset/Context/Timing Onset: Today Activity at onset: sudden Timing: Intermittent Quality: Positive for Aching Location: Substernal Current Severity: Gone Maximum Severity: Mild Worsened By: Nothing Relieved By: Nothing Associated Symptoms: Negative for Nausea, Vomiting, Diaphoresis, Dyspnea, Cough, Fever, Lightheadedness, Acid Reflux or Palpitations Narrative Narrative: 79-year-old female history of diabetes and hypertension. 530 tonight was feeling fine went to bend over a chair since she got a hot flash like a cramp in her chest. Denies any shortness of breath. No recent exertional chest pain or exertional dyspnea. No known cardiac disease. She has never had a PE. Denies any pleuritic chest pain. Denies any shortness of breath. Denies any leg pain or swelling. No hemoptysis. Currently she is symptom-free. She has had episodes like this before her states they have come in the ER is been worked up they did not find a specific cause. Prior Similar Symptoms: Yes (Without diagnosis.) Recent Illness/Hospitalization: No CVD Risk Factors: Positive for Hypertension and Diabetes PE Risk Factors: Positive for Prior DVT or PE (In her lower leg after surgery and immobilization.); Negative for Recent Travel/Surgery, Recent Immobilization, Cancer or OCP + Smoking + >/=35 TAD Risk Factors: Negative for Marfan's Syndrome [facility] Medical History THAIS (obstructive sleep apnea) Hyperglycemia due to type 2 diabetes mellitus Palpitations Sinus bradycardia Abnormal EKG Essential hypertension Premature atrial contractions Charcot's joint of left foot Asthma GERD (gastroesophageal reflux disease) History of DVT (deep vein thrombosis) Bimalleolar ankle fracture Paroxysmal SVT (supraventricular tachycardia) Premature ventricular contraction Hyperlipidemia Diabetes mellitus, type II Home Medications ?Medication ?Instructions ?Recorded ?Last Taken ?Type ramipril 10 mg capsule 10 mg PO BID HEART 01/19/19 02/06/24 History cholecalciferol (vitamin D3) 1,250 1,250 mcg PO QWEEK SUPPLEMENT 12/03/19 02/05/24 History mcg (50,000 unit) capsule budesonide-formoterol HFA 160 2 puff inhalation BID ASTHMA 12/21/21 02/06/24 History mcg-4.5 mcg/actuation aerosol inhaler zolpidem 5 mg tablet 2.5 mg PO QHS PRN Insomnia 02/11/22 Unknown History insulin lispro 100 unit/mL 6 unit subcut TIDCM dm 06/22/22 02/06/24 History subcutaneous solution omeprazole magnesium 20 mg 20 mg PO DAILY GERD 06/22/22 02/06/24 History tablet,delayed release (Prilosec OTC) metoprolol tartrate 50 mg tablet 25 mg PO Q12H heart rate, BP 10/01/23 02/06/24 History blood sugar diagnostic (OneTouch 02/06/24 Unknown History Ultra Test strips) mometasone 0.1 % topical cream 1 applic topical QDAY PRN skin 06/13/24 Unknown History irritation furosemide 20 mg tablet 10 mg PO DAILY water pill 11/15/24 Unknown History aspirin 81 mg tablet,delayed 81 mg PO BID heart health 01/14/25 Unknown History release insulin glargine 100 unit/mL (3 22 unit subcut QHS 01/14/25 Unknown History mL) subcutaneous pen (Lantus Solostar U-100 Insulin) amlodipine 2.5 mg tablet 2.5 mg PO .COMPLEX 02/08/25 Unknown History Allergy/AdvReac Type Severity Reaction Status Date / Time hydromorphone Allergy Severe Anaphylaxis Verified 05/19/25 18:37 tramadol Allergy Severe Anaphylaxis Verified 05/19/25 18:37 amiodarone Allergy Intermediate Swelling Verified 05/19/25 18:37 [place] And Derivatives Allergy Intermediate Hives Verified 05/19/25 18:37 morphine Allergy Intermediate confusion Verified 05/19/25 18:37 moxifloxacin Allergy Intermediate Shortness Verified 05/19/25 18:37 of breath nabumetone Allergy Intermediate damaged Verified 05/19/25 18:37 kidney penicillin G Allergy Intermediate TURNS BLUE Verified 05/19/25 18:37 propoxyphene Allergy Intermediate PT UNSURE Verified 05/19/25 18:37 OF REACTION amlodipine Allergy Mild Abd Verified 05/19/25 18:37 cramps/diarrhea desloratadine Allergy Mild headache Verified 05/19/25 18:37 glutamine (From Airborne Allergy Mild Itching Verified 05/19/25 18:37 (ascorbate sodium)) herbal complex no.124 (From Allergy Mild Itching Verified 05/19/25 18:37 [place] (ascorbate sodium)) hydrocodone (From [place]) Allergy Mild dystonia Verified 05/19/25 18:37 lysine HCl (From Airborne Allergy Mild Itching Verified 05/19/25 18:37 (ascorbate sodium)) multivitamin with minerals Allergy Mild Itching Verified 05/19/25 18:37 (From [place] (ascorbate sodium)) pravastatin Allergy Unknown unknown Verified 05/19/25 18:37 rosuvastatin (From Crestor) Allergy Unknown myalgias Verified 05/19/25 18:37 simvastatin Allergy Unknown unknown Verified 05/19/25 18:37 escitalopram Allergy Other Verified 05/19/25 18:37 hydrochlorothiazide Allergy Other Verified 05/19/25 18:37 oseltamivir (From Tamiflu) AdvReac Severe HALLUCINATI Verified 05/19/25 18:37 ONS Rmhrxuf-KRK-JcX Reductase AdvReac Severe myalgias Verified 05/19/25 18:37 Inhibitor (Mhpfvbn-Bez-Vbd Reductase Inhibitor) amoxicillin (From Augmentin) AdvReac Other Verified 05/19/25 18:37 clavulanic acid (From AdvReac Other Verified 05/19/25 18:37 Augmentin) codeine AdvReac Nausea Verified 05/19/25 18:37 naproxen (From Naprosyn) AdvReac Nausea Verified 05/19/25 18:37 Family History Mother Aortic stenosis Presence of permanent cardiac pacemaker Surgical History History of herniorrhaphy Status post ORIF of fracture of ankle History of tonsillectomy History of cholecystectomy Social History household members: spouse housing: house Smoking Status: Former smoker alcohol intake: never substance use type: does not use caffeine: Yes Type: coffee Number of servings: 3 ROS ROS ED ROS Narrative Denies recent illness. Denies recent exertional chest pain or exertional dyspnea. No hemoptysis. No calf pain or swelling. Constitutional Constitutional ED: Denies chills or fever(s) Eyes Eyes: Reports none ENT ENT ED: Denies ear pain Cardiovascular Cardiovascular: Reports chest pain; Denies palpitations Respiratory/Chest Respiratory/Chest: Denies cough, dyspnea or dyspnea on exertion Gastrointestinal Gastrointestinal: Denies abdominal pain Genitourinary Genitourinary ED: Denies dysuria Musculoskeletal Musculoskeletal: Denies arthralgias Integumentary Denies abscess Neurologic Neurologic: Denies headache(s) Psychiatric Psychiatric: Denies anxiety or depression Endocrine Endocrinology: Denies cold intolerance Hematologic/Lymphatic Hematologic/Lymphatic: Denies easy bleeding Allergic/Immunologic Allergic/Immunologic ED: Denies mouth swelling EXAM Physical Exam Narrative Exam Narrative: Well-appearing 79-year-old female. Vital signs are stable afebrile. Pulse ox 98% on room air no hypoxia. Currently in no distress. Currently symptom-free. No chest pain. at bedside. H EENT exam pupils round react light. Moist mucous membranes. Neck nontender no JVD. Back nontender. Lungs clear to auscultation bilaterally. Heart regular rhythm no murmur. Chest wall ribs nontender. No reproducible chest wall pain. No discoloration. Abdomen soft nontender. Moving all 4 extremities. Braces on both lower extremities due to Charcot joint. Calves are nontender without cords. 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 Neurologically she is awake alert. Answer questions following commands. Very benign exam. Const Vital Signs: 05/19/25 18:37 05/19/25 19:30 05/19/25 19:32 Temperature 97 F L Temperature Source Temporal Pulse Rate 56 L 58 L Respiratory Rate 20 H 18 Blood Pressure 150/75 H 143/58 H Blood Pressure Mean 100 86 Pulse Ox 98 94 95 Oxygen Delivery Method Room Air Room Air Room Air 05/19/25 20:00 05/19/25 21:00 05/19/25 22:00 Temperature Temperature Source Pulse Rate 63 68 64 Respiratory Rate 18 12 14 Blood Pressure 127/63 H 147/60 H 165/72 H Blood Pressure Mean 84 89 96 Pulse Ox 96 98 94 Oxygen Delivery Method Room Air Room Air Room Air MDM MDM MDM Narrative Medical decision making narrative: 79-year-old atypical nonexertional chest pain. Symptoms are resolved. Exam benign. She undergo cardiac workup. Repeat exam patient is doing well at 9:41 PM. Awaiting the 2-hour troponin. Exam otherwise is normal and unchanged. We discussed her test results. Patient doing well at 10:30 PM. Given the atypical nature of her discomfort, benign exam and negative workup she will be discharged to home chest pain of the radiology. She and her are comfortable to plan. History & Record Review Discussion w/independent historian: Patient and Family Additional record(s) reviewed:: Prior outpatient record, Prior ED visit and Prior labs Lab Data Attestation: I reviewed the patient's lab results. Lab results narrative: CBC shows a white count of 5. H&H 12 and 36. Platelets 180. Electrolytes show gap 11. BUN and creatinine 26 0.9. Glucose 150. Initial troponin 14. 2-hour troponin 13. Chest x-ray chronic changes. Labs: Laboratory Results - last 24 hr 05/19/25 05/19/25 05/19/25 19:28 21:26 21:42 WBC 5.8 RBC 4.19 L Hgb 12.2 Hct 36.8 L MCV 87.8 MCH 29.1 MCHC 33.2 RDW Std Deviation 39.4 RDW Coeff of Madalyn 12.3 Plt Count 180 MPV 11.8 Immature Gran % (Auto) 0.200 Neut % (Auto) 66.5 Lymph % (Auto) 20.4 Gregg % (Auto) 7.4 Eos % (Auto) 5.0 Baso % (Auto) 0.5 Absolute Neuts (auto) 3.9 Absolute Lymphs (auto) 1.19 Nucleated RBC % 0 Sodium 138 Potassium 3.9 Chloride 102 Carbon Dioxide 24.7 Anion Gap 11 BUN 26 H Creatinine 0.90 Estim Creat Clear Calc 72.05 Est GFR (MDRD) Non-Af 65 BUN/Creatinine Ratio 28.9 H Glucose 150 H Calcium 9.1 Troponin T High Sens 14 D Troponin T Hi Sens 2 Hr 13 POC Glucose 172 H Radiography Chest X-Ray - ED: 2 View, Read by ED Physician, Normal, Heart, Lungs, Mediastinum, Bony Structures, No Acute Disease and Chronic Changes Diagnostic Testing: Clinical Impression(s) from Imaging Studies Chest X-Ray 05/19/25 19:18 IMPRESSION: No acute cardiopulmonary abnormality. Reading Location: [id number] Chest x-ray, 2 views, AP and lateral, interpreted by myself shows normal cardiac silhouette. Normal lung ramon bilaterally. No acute process. Chronic changes Rhythm Strip Rhythm Strip: Sinus Rhythm Rate: 60 Ectopy: None EKG Initial EKG: Attestation: I personally reviewed and interpreted this EKG as follows: Interpretation: Sinus Rhythm and No Acute Injury Pattern Comments: Normal sinus rhythm rate of 60 no acute signs of [place] or ischemia. No dysrhythmia. Discharge Plan Triage Chief Complaint: Chest Pain ED Provider: Abdulaziz Stratton Dx/Rx/DC Orders Prescriptions: No Action aspirin 81 mg tablet,delayed release (DR/EC) 81 mg PO BID cholecalciferol (vitamin D3) 1,250 mcg (50,000 unit) capsule 1,250 mcg PO QWEEK insulin lispro 100 unit/mL solution 6 unit subcut TIDCM Protocol: 4. Sliding Scale Insulin High-Med Dosing Condition: 150-199 mg/dl = 2 units Condition: 200-259 mg/dl = 4 units Condition: 260-324 mg/dl = 6 units Condition: 325-374 mg/dl = 8 units Condition: 375-409 mg/dl = 10 units Condition: 410-449 mg/dl = 11 units Condition: Greater than 449 call physician Protocol Text: - Use for Total Daily Dose of Insulin 56-80 units - Patient who are insulin resistant or septic HIGH MEDIUM DOSING ALGORITHM Patient Comments: INJECT 3 TO 10 UNITS SUBCUTANEOUSLY BEFORE MEALS DIRECTED furosemide 20 mg tablet 10 mg PO DAILY budesonide-formoterol 160-4.5 mcg/actuation HFA aerosol inhaler 2 puff inhalation BID omeprazole magnesium [Prilosec OTC] 20 mg tablet,delayed release (DR/EC) 20 mg PO DAILY mometasone 0.1 % cream 1 applic topical QDAY PRN (Reason: skin irritation) ramipril 10 MG capsule 10 mg PO BID Patient Comments: TAKE 1 CAPSULE BY MOUTH TWICE DAILY zolpidem 5 mg Tablet 2.5 mg PO QHS PRN (Reason: Insomnia) metoprolol tartrate 50 mg tablet 25 mg PO Q12H Patient Comments: takes half tablet in morning and night (DME) OneTouch Ultra Test Strip MISCELLANEOUS Patient Comments: [NO ORIGINAL SIG] insulin glargine [Lantus Solostar U-100 Insulin] 100 unit/mL (3 mL) insulin pen 22 unit subcut QHS amlodipine 2.5 mg tablet 2.5 mg PO .COMPLEX Rx Instructions: 2.5 mg orally Take 2 tabs QAM, 1 tab QPM; Primary Care Provider: Luzma Palencia Referrals: Luzma Palencia MD [Primary Care Provider, Internal Medicine] Print Language: Spanish
--- NOTE | 2025-05-19 19:18 | RAD_ITS ---
PROCEDURE: RAD/Chest PA and Lateral
[2025-05-19 19:34] LABS: Hematocrit 36.8 % (37-47); Hemoglobin 12.2 g/dL (12.0-15.0); Immature Granulocytes Count 0.010 X10^3/uL (0.0-0.0); Mean Corp Hgb Conc 33.2 g/dL (32-36); Mean Corpuscular Volume 87.8 fL (81-99); Mean Platelet Vol. 11.8 fl (6.2-12.0); NRBC Flagged by Analyzer 0 % (0-5); Platelet Count 180 K/mm3 (150-450); RBC Distribution Width CV 12.3 % (11.6-14.6); RBC Distribution Width SD 39.4 fl (35.1-43.9); Red Blood Count 4.19 M/mm3 (4.2-5.4); White Blood Count 5.8 K/mm3 (4.4-11.0)
[2025-05-19 19:52] LABS: Anion Gap 11 (5-15); BUN 26 mg/dL (4-19); BUN/Creat Ratio 28.9 RATIO (10-20); Calcium,Total 9.1 mg/dL (7.6-11.0); Carbon Dioxide 24.7 mmol/L (21.0-32.0); Chloride 102 mmol/L (98-108); Estimated Creatinine Clearance 72.05 ml/min (50-250); Glucose 150 mg/dL (70-99); Potassium 3.9 mmol/L (3.3-5.1); Troponin T High Sensitivity 14 ng/L (<=14)
[2025-05-19 22:20] LABS: Troponin T High Sens 2 HR 13 ng/L (<=14)
== END 2025-05-19 22:35 | disposition home or self-care (01) ==
PROVIDERS: Emergency Provider Emergency Medicine; PCP Internal Medicine; Visit Provider Emergency Medicine
DX: R07.89 Other chest pain (principal); E11.9 Type 2 diabetes mellitus without complications; Z79.4 Long term (current) use of insulin; I10 Essential (primary) hypertension; E78.5 Hyperlipidemia, unspecified; Z79.890 Hormone replacement therapy; Z79.82 Long term (current) use of aspirin; Z86.718 Personal history of other venous thrombosis and embolism; Z87.891 Personal history of nicotine dependence
CPT/HCPCS: 71046; 80048; 82962; 84484; 85025; 93005; 99284; A4216

== ENCOUNTER → 2025-06-04 | Outpatient (CLI) | payer MEDICARE, SELFPAY ==
--- NOTE | 2025-06-04 13:05 | US_ITS ---
PROCEDURE: BREAST LIMITED UNILATERAL N/A REASON FOR EXAM: F, Age 79 y/o , MASS Palpable lump. COMPARISON: Prior mammogram dated April 02, 2025.. TECHNIQUE: Procedure Code: USBRSTLIMIT Modality: US Procedure: BREAST LIMITED UNILATERAL FINDINGS: The retroareolar region of the right breast was examined with ultrasound. The palpable abnormality corresponds to a 4 mm x 5 mm x 4 mm slightly irregular hypoechoic nodule at the 6 o'clock position of the breast at 1 cm from the nipple. Biopsy recommended. US/Breast Limited Unilateral IMPRESSION: 4 mm x 5 mm x 4 mm hypoechoic slightly irregular nodule in the retroareolar reg ion of the right breast corresponding to the palpable lump. Biopsy recommended. BI-RADS 4: SUSPICIOUS RECOMMENDATION: Biopsy Recommended Reading Location: [id number]
== END | disposition home or self-care (01) ==
LOC: OPUS 13:03
PROVIDERS: PCP Internal Medicine; Referring Provider Nurse Practitioner; Visit Provider Nurse Practitioner
DX: N63.41 Unspecified lump in right breast, subareolar (principal)
CPT/HCPCS: 76642

== ENCOUNTER 2025-07-02 19:06 | Emergency (ER) | payer MEDICARE, SELFPAY ==
[2025-07-02 19:07] VITALS: BP 146/65; PULSE 47; RESP 16; TEMP 36.4; O2SAT 100
--- NOTE | 2025-07-02 19:12 | EKG12_ITS ---
Test Reason : CP Blood Pressure : */* mmHG Vent. Rate : 57 BPM Atrial Rate : 57 BPM P-R Int : 132 ms QRS Dur : 86 ms QT Int : 442 ms P-R-T Axes : 80 38 56 degrees QTcB Int : 430 ms Sinus bradycardia with marked sinus arrhythmia Otherwise normal ECG Confirmed by Miguel Angel Bosch ([id number]), editor sound RHONDA BRADFORD ([id number]) on 07/03/2025 10:24:43 AM Referred By: Confirmed By: Miguel Angel Bosch
[2025-07-02 19:38] VITALS: BP 148/62; PULSE 54; RESP 18; O2SAT 97; O2SAT 98; BMI 39.0
[2025-07-02 19:49] LABS: Hematocrit 38.7 % (37-47); Hemoglobin 13.1 g/dL (12.0-15.0); Immature Granulocytes Count 0.000 X10^3/uL (0.0-0.0); Mean Corp Hgb Conc 33.9 g/dL (32-36); Mean Corpuscular Volume 88.2 fL (81-99); Mean Platelet Vol. 12.2 fl (6.2-12.0); NRBC Flagged by Analyzer 0 % (0-5); Platelet Count 180 K/mm3 (150-450); RBC Distribution Width CV 12.5 % (11.6-14.6); RBC Distribution Width SD 40.8 fl (35.1-43.9); Red Blood Count 4.39 M/mm3 (4.2-5.4); White Blood Count 6.8 K/mm3 (4.4-11.0)
[2025-07-02 20:00] VITALS: BP 141/63; PULSE 60; RESP 18; O2SAT 95
--- NOTE | 2025-07-02 20:05 | RAD_ITS ---
PROCEDURE: CHEST 1 VIEW (PORTABLE) 07/02/2025 REASON FOR EXAM: CHEST PAIN TECHNIQUE: Frontal view of the chest. COMPARISON: 05/19/2025 FINDINGS: Lungs/Pleura: No focal consolidation, pneumothorax or sizable pleural effusion. Heart/Mediastinum: Enlarged, although likely exaggerated by technique. No significant vascular congestion. Mildly tortuous and calcified thoracic aorta. Bones/Soft tissues: Degenerative changes of the spine with slight S-shaped scoliosis. RAD/Chest 1 View (Portable) IMPRESSION: Cardiomegaly. No acute pulmonary disease. Reading Location: [id number]
[2025-07-02 20:10] LABS: Anion Gap 11 (5-15); BUN 28 mg/dL (4-19); BUN/Creat Ratio 32.0 RATIO (10-20); Calcium,Total 9.6 mg/dL (7.6-11.0); Carbon Dioxide 26.9 mmol/L (21.0-32.0); Chloride 99 mmol/L (98-108); Estimated Creatinine Clearance 73.45 ml/min (50-250); Glucose 116 mg/dL (70-99); Potassium 4.3 mmol/L (3.3-5.1); Troponin T High Sensitivity 14 ng/L (<=14)
--- NOTE | 2025-07-02 20:12 | ED.VIS.CHEST ---
HPI History of Present Illness Chief Complaint: Chest Pain Narrative Narrative: Patient is a 79-year-old female presenting to the emergency department for chest pain. Patient has a past medical history of palpitations, hypertension, hyperlipidemia, THAIS and chronic bilateral lower extremity edema. Patient states that today around 2 or 3 PM she developed chest pain. She states that she thought it was because her glucose was low but she checked her glucose and it was in the 130s. States that she was also having right shoulder pain and neck pain with that but she states these 2 symptoms are chronic from her arthritis. She endorses shortness of breath with the episode. She is an extremely poor historian. She denies abdominal pain, nausea, vomiting or diaphoresis. Denies any worsening lower extremity edema from baseline. states that she has to sleep with pillows underneath her head. This is not new. [facility] Medical History THAIS (obstructive sleep apnea) Hyperglycemia due to type 2 diabetes mellitus Palpitations Sinus bradycardia Abnormal EKG Essential hypertension Premature atrial contractions Charcot's joint of left foot Asthma GERD (gastroesophageal reflux disease) History of DVT (deep vein thrombosis) Bimalleolar ankle fracture Paroxysmal SVT (supraventricular tachycardia) Premature ventricular contraction Hyperlipidemia Diabetes mellitus, type II Home Medications ?Medication ?Instructions ?Recorded ?Last Taken ?Type ramipril 10 mg capsule 10 mg PO BID HEART 01/19/19 02/06/24 History cholecalciferol (vitamin D3) 1,250 1,250 mcg PO QWEEK SUPPLEMENT 12/03/19 02/05/24 History mcg (50,000 unit) capsule budesonide-formoterol HFA 160 2 puff inhalation BID ASTHMA 12/21/21 02/06/24 History mcg-4.5 mcg/actuation aerosol inhaler zolpidem 5 mg tablet 2.5 mg PO QHS PRN Insomnia 02/11/22 Unknown History insulin lispro 100 unit/mL 6 unit subcut TIDCM dm 06/22/22 02/06/24 History subcutaneous solution omeprazole magnesium 20 mg 20 mg PO DAILY GERD 06/22/22 02/06/24 History tablet,delayed release (Prilosec OTC) metoprolol tartrate 50 mg tablet 25 mg PO Q12H heart rate, BP 10/01/23 02/06/24 History blood sugar diagnostic (OneTouch 02/06/24 Unknown History Ultra Test strips) mometasone 0.1 % topical cream 1 applic topical QDAY PRN skin 06/13/24 Unknown History irritation furosemide 20 mg tablet 10 mg PO DAILY water pill 11/15/24 Unknown History aspirin 81 mg tablet,delayed 81 mg PO BID heart health 01/14/25 Unknown History release insulin glargine 100 unit/mL (3 22 unit subcut QHS 01/14/25 Unknown History mL) subcutaneous pen (Lantus Solostar U-100 Insulin) amlodipine 2.5 mg tablet 2.5 mg PO .COMPLEX 02/08/25 Unknown History Allergy/AdvReac Type Severity Reaction Status Date / Time hydromorphone Allergy Severe Anaphylaxis Verified 07/02/25 19:10 tramadol Allergy Severe Anaphylaxis Verified 07/02/25 19:10 amiodarone Allergy Intermediate Swelling Verified 07/02/25 19:10 [place] And Derivatives Allergy Intermediate Hives Verified 07/02/25 19:10 morphine Allergy Intermediate confusion Verified 07/02/25 19:10 moxifloxacin Allergy Intermediate Shortness Verified 07/02/25 19:10 of breath nabumetone Allergy Intermediate damaged Verified 07/02/25 19:10 kidney penicillin G Allergy Intermediate TURNS BLUE Verified 07/02/25 19:10 propoxyphene Allergy Intermediate PT UNSURE Verified 07/02/25 19:10 OF REACTION amlodipine Allergy Mild Abd Verified 07/02/25 19:10 cramps/diarrhea desloratadine Allergy Mild headache Verified 07/02/25 19:10 glutamine (From Airborne Allergy Mild Itching Verified 07/02/25 19:10 (ascorbate sodium)) herbal complex no.124 (From Allergy Mild Itching Verified 07/02/25 19:10 [place] (ascorbate sodium)) hydrocodone (From [place]) Allergy Mild dystonia Verified 07/02/25 19:10 lysine HCl (From Airborne Allergy Mild Itching Verified 07/02/25 19:10 (ascorbate sodium)) multivitamin with minerals Allergy Mild Itching Verified 07/02/25 19:10 (From Airborne (ascorbate sodium)) pravastatin Allergy Unknown unknown Verified 07/02/25 19:10 rosuvastatin (From Crestor) Allergy Unknown myalgias Verified 07/02/25 19:10 simvastatin Allergy Unknown unknown Verified 07/02/25 19:10 escitalopram Allergy Other Verified 07/02/25 19:10 hydrochlorothiazide Allergy Other Verified 07/02/25 19:10 oseltamivir (From Tamiflu) AdvReac Severe HALLUCINATI Verified 07/02/25 19:10 ONS Ibvxoks-YAY-RoM Reductase AdvReac Severe myalgias Verified 07/02/25 19:10 Inhibitor (Lyeukub-Ozh-Zod Reductase Inhibitor) amoxicillin (From Augmentin) AdvReac Other Verified 07/02/25 19:10 clavulanic acid (From AdvReac Other Verified 07/02/25 19:10 Augmentin) codeine AdvReac Nausea Verified 07/02/25 19:10 naproxen (From Naprosyn) AdvReac Nausea Verified 07/02/25 19:10 Family History Mother Aortic stenosis Presence of permanent cardiac pacemaker Surgical History History of herniorrhaphy Status post ORIF of fracture of ankle History of tonsillectomy History of cholecystectomy Social History household members: spouse housing: house Smoking Status: Former smoker alcohol intake: never substance use type: does not use caffeine: Yes Type: coffee Number of servings: 3 ROS ROS ED ROS Narrative see HPI EXAM Physical Exam Narrative Exam Narrative: Vital signs: Reviewed General: Alert and orientedx3. No acute distress. Chronically ill-appearing, nontoxic, obese HEENT: Head is normocephalic and atraumatic, sinuses nontender, pupils equal round and reactive. Nares are patent. Oropharynx and throat exams normal. Neck: Supple without lymphadenopathy nontender Cardiovascular: Regular rate and rhythm, no murmurs. No rubs or gallops. Normal S1 and S2 Respiratory: Clear to auscultation bilaterally. No wheezes, rales, rhonchi Abdominal: Soft and nontender. Normal bowel sounds. No guarding or rebound. Nonsurgical abdomen Extremities: Symmetric bilateral nonpitting lower extremity edema. No erythema or warmth. No tenderness. No bruising. Normal range of motion. Normal sensation. Skin: No rash or redness. The rest of the physical exam is unremarkable Const Vital Signs: 07/02/25 19:07 07/02/25 19:38 07/02/25 19:38 Temperature 97.5 F L Temperature Source Temporal Pulse Rate 47 L 54 L Respiratory Rate 16 18 Respiratory Effort Respiratory Pattern Blood Pressure 146/65 H 148/62 H Blood Pressure Mean 92 90 Pulse Ox 100 98 97 Oxygen Delivery Method Room Air Room Air Room Air 07/02/25 19:38 07/02/25 20:00 07/02/25 21:00 Temperature Temperature Source Pulse Rate 60 64 Respiratory Rate 18 18 Respiratory Effort Normal Non-Labored Respiratory Pattern Normal Blood Pressure 141/63 H 127/64 H Blood Pressure Mean 89 85 Pulse Ox 95 98 Oxygen Delivery Method Room Air Room Air 07/02/25 22:00 07/02/25 22:44 Temperature 98 F Temperature Source Pulse Rate 63 61 Respiratory Rate 18 18 Respiratory Effort Respiratory Pattern Blood Pressure 137/56 H 138/58 H Blood Pressure Mean 83 84 Pulse Ox 93 96 Oxygen Delivery Method Room Air MDM MDM MDM Narrative Medical decision making narrative: Patient is a 79-year-old female presenting to the emergency department for chest pain. Patient was seen and examined. Vitals are stable. Patient resting bed comfortably no acute distress. Differential includes but is not limited to: ACS, pneumonia, CHF, pneumothorax. Less likely aortic pathology including dissection as patient is not tachycardic, not overtly hypertensive, very comfortable appearing, normal pulses throughout with no focal neurologic deficits. Patient states that the pain is more of a discomfort, no ripping or tearing pain. Less likely pulmonary embolism given patient is not tachycardic, no hypoxia, no shortness of breath. Did review the triage note that states it is radiating to bilateral shoulders, patient states she has pain in her shoulders chronically from arthritis. This is not new. EKG shows sinus bradycardia with sinus arrhythmia at a rate of 57. No ischemic changes. Nothing meeting STEMI criteria. CBC with no leukocytosis and a normal hemoglobin. BMP with no significant abnormalities, baseline elevated BUN of 20. BNP within normal limits. Troponin and reflex within normal limits, no significant delta change. Chest x-ray reviewed and shows cardiomegaly with no vascular pulmonary congestion, opacities, pneumothorax or wide mediastinum. Radiology read in agreement. Patient has been at bedside were updated on the negative workup. Patient discharged from the Emergency Department. I do not feel that the patient's evaluation reveals any acute reason for admission at this time. I instructed them to either follow-up with their primary care physician or promptly return to the Emergency Department for reevaluation should symptoms worsen or new symptoms develop. I explained what symptoms would indicate the need to return to the emergency department. Shared decision making was used. The patient voiced understanding of the treatment plan and is agreeable with it. Clinical impression Chest pain of uncertain etiology History & Record Review Discussion w/independent historian: Patient and Significant other Additional record(s) reviewed:: Prior outpatient record Lab Data Attestation: I reviewed the patient's lab results. Labs: Laboratory Results - last 24 hr 07/02/25 07/02/25 07/02/25 19:42 22:00 22:25 WBC 6.8 RBC 4.39 Hgb 13.1 Hct 38.7 MCV 88.2 MCH 29.8 MCHC 33.9 RDW Std Deviation 40.8 RDW Coeff of Madalyn 12.5 Plt Count 180 MPV 12.2 H Immature Gran % (Auto) 0.000 Neut % (Auto) 70.4 H Lymph % (Auto) 16.8 L [place] % (Auto) 8.7 Eos % (Auto) 3.7 Baso % (Auto) 0.4 Absolute Neuts (auto) 4.8 Absolute Lymphs (auto) 1.14 Nucleated RBC % 0 Sodium 138 Potassium 4.3 Chloride 99 Carbon Dioxide 26.9 Anion Gap 11 BUN 28 H Creatinine 0.86 Estim Creat Clear Calc 73.45 Est GFR (MDRD) Non-Af 68 BUN/Creatinine Ratio 32.0 H Glucose 116 H Calcium 9.6 Troponin T High Sens 14 Troponin T Hi Sens 2 Hr 13 NT pro BNP II 365 POC Glucose 185 H Radiography Diagnostic Testing: Clinical Impression(s) from Imaging Studies Chest X-Ray 07/02/25 20:05 IMPRESSION: Cardiomegaly. No acute pulmonary disease. Reading Location: [facility] [place] Discharge Plan Triage Chief Complaint: Chest Pain Other Complaint: Upper Extremity Injury ED Provider: Dayanara Oconnor Dx/Rx/DC Orders Clinical Impression: Chest pain of uncertain etiology Instructions: ED Chest Pain, Uncertain Cause Prescriptions: No Action aspirin 81 mg tablet,delayed release (DR/EC) 81 mg PO BID cholecalciferol (vitamin D3) 1,250 mcg (50,000 unit) capsule 1,250 mcg PO QWEEK insulin lispro 100 unit/mL solution 6 unit subcut TIDCM Protocol: 4. Sliding Scale Insulin High-Med Dosing Condition: 150-199 mg/dl = 2 units Condition: 200-259 mg/dl = 4 units Condition: 260-324 mg/dl = 6 units Condition: 325-374 mg/dl = 8 units Condition: 375-409 mg/dl = 10 units Condition: 410-449 mg/dl = 11 units Condition: Greater than 449 call physician Protocol Text: - Use for Total Daily Dose of Insulin 56-80 units - Patient who are insulin resistant or septic HIGH MEDIUM DOSING ALGORITHM Patient Comments: INJECT 3 TO 10 UNITS SUBCUTANEOUSLY BEFORE MEALS DIRECTED furosemide 20 mg tablet 10 mg PO DAILY budesonide-formoterol 160-4.5 mcg/actuation HFA aerosol inhaler 2 puff inhalation BID omeprazole magnesium [Prilosec OTC] 20 mg tablet,delayed release (DR/EC) 20 mg PO DAILY mometasone 0.1 % cream 1 applic topical QDAY PRN (Reason: skin irritation) ramipril 10 MG capsule 10 mg PO BID Patient Comments: TAKE 1 CAPSULE BY MOUTH TWICE DAILY zolpidem 5 mg Tablet 2.5 mg PO QHS PRN (Reason: Insomnia) metoprolol tartrate 50 mg tablet 25 mg PO Q12H Patient Comments: takes half tablet in morning and night (DME) OneTouch Ultra Test Strip MISCELLANEOUS Patient Comments: [NO ORIGINAL SIG] insulin glargine [Lantus Solostar U-100 Insulin] 100 unit/mL (3 mL) insulin pen 22 unit subcut QHS amlodipine 2.5 mg tablet 2.5 mg PO .COMPLEX Rx Instructions: 2.5 mg orally Take 2 tabs QAM, 1 tab QPM; Primary Care Provider: Luzma Palencia Referrals: Luzma Palencia MD [Primary Care Provider, Internal Medicine] - As soon as possible Activity Restrictions/Additional Instructions: Your evaluation in the Emergency Department did not reveal any acute reason for admission. However, I want to emphasize that you may be early in the course of a disease process or illness even if it is not present. For this reason you should follow-up within 24 hours for reevaluation with either your primary care physician or if necessary back here in the Emergency Department. You should return to the Emergency Department immediately if your symptoms worsen or new symptoms develop. Print Language: Armenian Disposition Disposition: Home, Self Care Discharge Date/Time: 07/02/25 22:47
[2025-07-02 20:35] LABS: Pro- Brain NATRIURETIC PEPTIDE 365 pg/mL (<=1800)
--- OUTSIDE RECORDS SUMMARY | 2025-07-02 20:52 | XMS RPT_ITS | CCD ---
Author Organization [facility] Care Team Providers Care Iron Installer Name Role Phone Lydia Cook Unavailable Unavailable [...] Tawanda Herring Attending Provider Unavailable Dr. Tawanda Herringit Provider Unavailable Dr. Tawanda Herring Other Provider Unavailable Dr. Jer Escobedo Attending Provider Dr. Jer Escobedo Other Provider Dr. Mark Leong Emergency Provider Dr. Krystian Sandoval Provider Dr. Krystian Sandoval Attending Provider Dr. Krystian Sandoval Other Provider Dr. Mei Garcia Attending Provider Dr. Mei Garcia Other Provider Dr. Floresita Howe Other Provider Dr. Jesus Kessler Emergency Provider Koram, Dr. Daisy Sykes Admit Provider Malik, Dr. Daisy Sykes Other Provider Dr. Zay Escalera Attending Provider Dr. Zay Escalera Other Provider Dr. Octavio Reza Primary Care Provider Dr. Octavio Reza Referring Provider Herb LOWRY, PA Areli Shoemaker Attending Provider Dr. Vazquez Harvey Emergency Provider Dr. Tawanda Herring Attending Provider Unavailable Dr. Tawanda Herring Admit Provider Unavailable Nima, Dr. Neff Other Provider Unavailable Dr. Jer Escobedo Attending Provider Dr. Jer Escobedo Other Provider Dr. Mark Leong Emergency Provider Dr. Krystian Sandoval Admit [...] Provider Slime, Dr. Octavio Zapata Referring Provider [facility] PRODUCT DESIGNER, PRODUCT DESIGNER-Sourav Rowe Attending Provider TAMIKA MORRIS Referring Unavailable OCTAVIO REZA Primary Care Unavailable Octavio Reza MD Primary Care Provider [facility] formerly [facility], Charis Unavailable Clinton RN, Federica Rabago Unavailable Cioce WASTEWATER PLANT CIVIL ENGINEER.TITLE CURATIVE SPECIALIST, Renetta C Unavailable Clinton RN, Federica Rabago Unavailable Grande WASTEWATER PLANT CIVIL ENGINEER.REAL ESTATE LEGAL SECRETARY, Lydia Unavailable Narda WASTEWATER PLANT CIVIL ENGINEER.TITLE CURATIVE SPECIALIST, Davon Unavailable Narda WASTEWATER PLANT CIVIL ENGINEER.TITLE CURATIVE SPECIALIST, Davon Monica Unavailable Narda WASTEWATER PLANT CIVIL ENGINEER.TITLE CURATIVE SPECIALIST, Davon Unavailable Dr. Octavio Reza MD Primary Care Provider Dr. Reyna Monzon DO Attending Provider Dr. Reyna Monzon DO Emergency Provider [phone] Lars Dahl DO Attending Provider Dahl DO, Dr. Sousa Referring Provider Hesham SANDERS, Dr. Sousa Emergency Provider Areli Gauthier Attending Provider Areli Gauthier Referring Provider Dr. Miguel Angel Bosch MD Attending Provider Areli Gauthier Other Provider [phone] Ashwini JOSE, Dr. Bell Attending Provider Slime JOSE, Dr. Octavio Zapata Referring Provider [facility], Dr. Clark Attending Provider [facility] DO, Dr. Clark Emergency Provider [place] DO, Dr. Lino Emergency Provider Slime JOSE, Dr. Octavio Zapata Primary Care Provider [facility] , Dr. Sousa Attending Provider Hesham SANDERS, Dr. Sousa Referring Provider Hesham SANDERS, Dr. Sousa Emergency Provider Areli Gautheir Attending Provider Areli Gauthier Referring Provider Dr. Miguel Angel Bosch MD Attending Provider Areli Gauthier Other Provider [phone] Ashwini JOSE, Dr. Bell Attending Provider Na SANDERS, Dr. Orellana Attending Provider Dr. Reyna Monzon DO Emergency Provider Slime JOSE, Dr. Octavio Zapata Referring Provider [facility] , Dr. Clark Attending Provider [facility], Dr. Clark Emergency Provider Dr. Holland Sanches DO Emergency Provider Viral JOSE, Dr. Cintron Emergency Provider Narda WASTEWATER PLANT CIVIL ENGINEER.TITLE CURATIVE SPECIALIST, Davon Unavailable Slime JOSE, Dr. Octavio Zapata [...] Octavio Reza MD Primary Care Provider [phone] Hesham SANDERS, Dr. Sousa Attending Provider Hesham SANDERS, Dr. Sousa Emergency Provider Dr. Zay Juan DO Attending Provider Dr. Octavio Reza MD Referring Provider Herb LOWRY, Areli Shoemaker Attending Provider Serg Solis MD Emergency Provider Harjinder WASTEWATER PLANT CIVIL ENGINEER.REAL ESTATE LEGAL SECRETARY, Lydia Unavailable Dr. Alex Gan MD Attending [...] Slime JOSE, Dr. Octavio Zapata Referring Provider Herb LOWRY, Areli Shoemaker Attending Provider Will JOSE, Serg Attending Provider Serg Solis MD Emergency Provider Jesus MCDONALD-Jae Benjamin Attending Provider Slime JOSE, Dr. Octavio Zapata Primary Care Provider [phone] Holland Sanches DO Attending Provider Verónica SANDERS, Dr. Lino Emergency Provider Viral JOSE, Dr. Cintron Attending Provider Viral JOSE, Dr. Cintron Emergency Provider Jesus MCDONALD-Jae Benjamin Attending Provider Jonathan JOSE, Dr. Flores Referring Provider Dr. Mark Leong MD Emergency Provider Dr. Octavio Reza MD Primary Care Physician Viral JOSE, Dr. Cintron Attending Physician Dr. Abdulaziz Stratton MD Emergency Department Physici an Dr. Zay Juan DO Attending Physician Dr. Zay Juan DO Emergency Department Physi theresa Slime JOSE, Dr. Octavio Zapata Referring Provider [facility] Jae SIN Attending Physician Jonathan JOSE, Dr. Flores Attending Physician Jonathan JOSE, Dr. Flores Emergency Department Physician Slime JOSE, Dr. Octavio Zapata Attending Physician TALAMPAS, OCTAVIO D Primary Care Unavailable SELF Referring Unavailable TALAMPAS, OCTAVIO D Attending Unavailable TALAMPAS, OCTAVIO D Primary Care Unavailable BOBBI, NAZ M Attending Unavailable TALAMPAS, OCTAVIO D Primary Care Unavailable TALAMPAS, OCTAVIO D Primary Care Unavailable JESSEE, RENETTA C Referring Unavailable TALAMPAS, OCTAVIO D Primary Care Unavailable SERGO PEREZ Attending Unavailable TALAMPAS, OCTAVIO D Primary Care Unavailable ARLEEN MILAN Referring Unavailable TALAMPAS, OCTAVIO D Primary Care Unavailable ARLEEN MILAN Attending Unavailable TALAMPAS, OCTAVIO D Primary Care Unavailable CIOCE, RENETTA C Referring Unavailable CIOCE, RENETTA C Attending Unavailable TALAMPAS, OCTAVIO D Primary Care Unavailable TALAMPAS, OCTAVIO D Primary Care Unavailable DAVON WOLFE Attending Unavailable TALAMPAS, OCTAVIO D Primary Care Unavailable TALAMPAS, OCTAVIO D Referring Unavailable CIOCE, RENETTA C Attending Unavailable TALAMPAS, OCTAVIO D Primary Care Unavailable TALAMPAS, OCTAVIO D Referring Unavailable TALAMPAS, OCTAVIO D Primary Care Unavailable SELF Referring Unavailable TALAMPAS, OCTAVIO D Attending Unavailable [...] OCTAVIO D Primary Care Unavailable ARLEEN MILAN Attending Unavailable TALAMPAS, OCTAVIO D Primary Care Unavailable TALAMPAS, OCTAVIO D Referring Unavailable TALAMPAS, OCTAVIO D Primary Care Unavailable LYDIA GRANDE Attending Unavailable TALAMPAS, OCTAVIO D Primary Care Unavailable ARLEEN MILAN Referring Unavailable TALAMPAS, OCTAVIO D Primary Care Unavailable RENETTA MCGEE Referring Unavailable SERGO PEREZ Attending Unavailable TALAMPAS, OCTAVIO D Primary Care Unavailable TALAMPAS, OCTAVIO D Primary Care Unavailable TALAMPAS, OCTAVIO D Primary Care Unavailable TALAMPAS, OCTAVIO D Attending Unavailable Talampas, Octavio D Primary Care Unavailable Holland Sanches Attending Unavailable Jae Lee Attending Unavailable Talampas, Octavio D Referring Unavailable Talampas, Octavio D Primary Care Unavailable Talampas, Octavio D Primary Care Unavailable Talampas, Octavio D Referring Unavailable Areli Estevez Attending Unavailabl e Talampas, Octavio D Primary Care Unavailable Zay Juan Attending Unavailable Talampas, Octavio D Primary Care Unavailable Serg Solis Attending Unavailable Talampas, Octavio D Primary Care Unavailable Abdulaziz Stratton Attending Unavailable Talampas, Octavio D Primary Care Unavailable Miguel Angel Bosch Attending Unavailable Areli Estevez Referring Unavailabl e Talampas, Octavio D Primary Care Unavailable Talampas, Octavio D Referring Unavailable Miguel Angel Bosch Attending Unavailable Leong, Mark Attending Unavailable Talampas, Octavio D Primary Care Unavailable Talampas, Octavio D Primary Care Unavailable Areli Estevez Attending UnavailAreli Smith Referring Unavailabl e Bobbi PRODUCT DESIGNER, Arleen Referring Unavailable Bobbi PRODUCT DESIGNER, Arleen Attending Unavailable Talampas, Octavio D Primary Care Unavailable Talampas, Ocatvio D Primary Care Unavailable Abdulaziz Stratton Attending Unavailable Talampas, Octavio D Primary Care Unavailable Zay Juan Attending Unavailable Talampas, Octavio D Primary Care Unavailable Talampas, Octavio D Referring Unavailable Talampas, Octavio D Attending Unavailable Talampas, Octavio D Primary Care Unavailable Abdulaziz Stratton Attending Unavailable Talampas, Octavio D Primary Care Unavailable Eduardo Paz Attending Unavailabl e Talampas, Octavio D Primary Care Unavailable Areli Estevez Attending UnavailAreli Smith Referring Unavailabl e Holland Sanches Attending Unavailable Talampas, Octavio D Primary Care Unavailable Leong, Mark Referring Unavailable Leong, Mark Attending Unavailable Talampas, Octavio D Primary Care Unavailable Talampas, Octavio D Primary Care Unavailable Benjamín Stanford Attending Unavailable Reyna Monzon Attending Unavailable Talampas, Octavio D Primary Care Unavailable Ray Maradiaga Attending Unavailable Talampas, Octavio D Primary Care Unavailable Areli Estevez Consulting UnavailAreli Smith Referring UnavailLars Franco Attending Unavailable Talampas, Octavio D Primary Care Unavailable Lars Dahl Attending Unavailable Talampas, Octavio D Primary Care Unavailable Allergies Allergy Classification Reported Allergen(s) Allergy Type Date of Onset Reaction(s) Facility Acetaminophen / Codeine (2 sources) Acetaminophen / Codeine Drug Allergy 005 [facility] Albuterol (2 sources) Albuterol Drug Allergy 014 GI Upset, Vom[facility] Work Phone: aMILoride / hydroCHLOROthiazide (2 sources) aMILoride / hydroCHLOROthiazide Drug Allergy 011 Other: See Comments [facility] Doxycycline (2 sources) Doxycycline Drug Allergy 023 GI Upset [facility] Lysine (2 sources) Lysine Drug Allergy 023 Itching [facility] NSAIDs (2 sources) Naproxen Drug Allergy 005 GI Upset [facility] Work Phone: Oseltamivir (2 sources) Oseltamivir Drug Allergy 024 Mental Status Change [facility] Serotonin Reuptake Inhibitors (SSRIs) (2 sources) Escitalopram Drug Allergy 013 Intolerance [facility] (20 sources) codeine; Translations: [codeine] drug allergy 012 nausea/vomit ing, Nausea [facility] Work Phone: [phone] (6 sources) NKA drug allergy 012 [facility] Work Phone: [phone] (20 sources) Acetaminophen / Codeine; Translations: [ACETAMINOPHEN-CODEIN E] Drug Allergy 005 [facility]om[facility] Work Phone: (20 sources) Albuterol; Translations: [ALBUTEROL SULFATE] Drug Allergy 014 GI Upset, Vom[facility] Work Phone: (20 sources) aMILoride / hydroCHLOROthiazide; Translations: [AMILORIDE-HYDROCHLOR OTHIAZIDE] Drug Allergy 011 Other: See Comments [facility] Work Phone: (20 sources) atorvastatin; Translations: [ATORVASTATIN] Drug Allergy 015 Myalgia [facility] Work Phone: (20 sources) Escitalopram; Translations: [ESCITALOPRAM] Drug Allergy 013 Intolerance [facility] Work Phone: (20 sources) Naproxen; Translations: [NAPROXEN] Drug Allergy 005 GI Upset [facility] Work Phone: (20 sources) Pravastatin; Translations: [PRAVASTATIN] Drug Allergy 017 GI Upset [facility] Work Phone: [phone] (20 sources) rosuvastatin; Translations: [ROSUVASTATIN] Drug Allergy 021 Intolerance [facility] Work Phone: (20 sources) Simvastatin; Translations: [SIMVASTATIN] Drug Allergy 017 Myalgia [facility] Work Phone: (5 sources) Albuterol Drug Allergy 022 nausea, vomiting [facility] Work Phone: (20 sources) hydroCHLOROthiazide Drug Allergy 022 Other [facility] (20 sources) Akctmin-Byv-Lvx Reductase Inhibitor; Translations: [Dbzofou-Afc-Uqz Reductase Inhibitor] Propensity to adverse reactions 022 myalgias [facility] (20 sources) Doxycycline; Translations: [DOXYCYCLINE] Drug Allergy 023 GI Upset [facility] Work Phone: (20 sources) Amoxicillin Drug Allergy 023 Other [facility] Comment on above: palpitations (20 sources) Clavulanate Drug Allergy 023 Other [facility] Comment on above: palpitations (4 sources) Acetaminophen Drug Allergy 024 dystonia [facility] (20 sources) Amiodarone Drug Allergy Swelling [facility] Comment on above: SOB (20 sources) amLODIPine Drug Allergy Abd cramps/diarr hea [facility] Comment on above: states she went into a.fib felt awful (4 sources) Ascorbic Acid Drug Allergy Itching [facility] (20 sources) Staples fruit Allergy to substance Hives [facility] (20 sources) desloratadine Drug Allergy headache [facility] (20 sources) Glutamine Drug Allergy Itching [facility] (20 sources) HYDROcodone Drug Allergy dystonia [facility] (20 sources) HYDROmorphone Drug Allergy Anaphylaxis [facility] Comment on above: sob (20 sources) Lysine; Translations: [lysine HCl] Drug Allergy Itching [facility] (20 sources) Morphine Drug Allergy confusion [facility] (20 sources) moxifloxacin Drug Allergy Shortness of breath [facility] (20 sources) nabumetone Drug Allergy damaged kidney [facility] (20 sources) Penicillin G Drug Allergy TURNS BLUE [facility] (20 sources) Propoxyphene Drug Allergy PT UNSURE OF REACTION [facility] (20 sources) traMADol Drug Allergy Anaphylaxis [facility] (20 sources) herbal complex no.124; Translations: [herbal complex no.124] Allergy to substance Itching [facility] (20 sources) multivitamin with minerals; Translations: [multivitamin with minerals] Allergy to substance Itching [facility] (20 sources) Oseltamivir; Translations: [OSELTAMIVIR] Drug Allergy Mental Status Change [facility] (20 sources) HMG-CoA reductase inhibitor; Translations: [XBGXRFK-LSX-RKE REDUCTASE INHIBITORS] Drug Intolerance [facility] (20 sources) Lysine; Translations: [LYSINE] Drug Allergy Itching [facility] (1 source) Amiodarone Drug Allergy [facility] (1 source) amLODIPine Drug Allergy [facility] (1 source) Amoxicillin Drug Allergy [facility] (1 source) Clavulanate Drug Allergy [facility] (1 source) desloratadine Drug Allergy [facility] (1 source) Escitalopram Drug Allergy [facility] (1 source) Glutamine Drug Allergy [facility] (1 source) hydroCHLOROthiazide Drug Allergy [facility] (1 source) HYDROcodone Drug Allergy [facility] (1 source) HYDROmorphone Drug Allergy [facility] (1 source) Morphine Drug Allergy [facility] (1 source) moxifloxacin Drug Allergy [facility] (1 source) nabumetone Drug Allergy [facility] (1 source) Naproxen Drug Allergy [facility] (1 source) Oseltamivir Drug Allergy [facility] (1 source) Penicillin Drug Allergy [facility] (1 source) Pravastatin Drug Allergy [facility] (1 source) Propoxyphene Drug Allergy [facility] (1 source) rosuvastatin Drug Allergy [facility] (1 source) Simvastatin Drug Allergy [facility] (1 source) traMADol Drug Allergy [facility] (1 source) Staples And Derivatives Drug allergy (disorder) [facility] Medications Current Medications Medication Drug Class(es) Dates Sig (Normalized) Sig (Original) ACCU-CHEK GUIDE GLUCOSE METER (10 sources) Start: 02-06-2025 End: 02-06-2026 ACCU-CHEK GUIDE GLUCOSE METER 1 each four times daily. 1 each 02/06/2025 02/06/2026 Active [id number] 200 actuat albuterol 0.09 mg/actuat metered dose [...] (20 sources) Dihydropyridine Calcium Channel Ariella Start: 02-08-2025 take 1 tablet by mouth once daily in the evening Start: 01-29-2025 End: 04-29-2025 take 2 tablets by mouth once daily [...] mg daily) 01/15/2025 01/29/2025 Discontinued Start: 01-14-2025 End: 02-08-2025 take 1 tablet by mouth twice daily Amlodipine 10 mg tablet Discontinued 10 mg PO TWICE A DAY January 14, 2025 11:01am February 08, 2025 11:03am Start: 01-14-2025 End: 01-14-2025 take 1 tablet [...] oral tablet (3 sources) Penicillin-class Antibacterial Start: 05-07-20 End: 05-14-20 take 1 tablet by mouth twice daily amoxicillin (AMOXIL) 875 mg tablet Indications: Dental abscess Take 1 tablet by mouth two times a day for 7 days. 14 tablet 05/07/2024 05/14/2024 Active 60 actuat budesonide 0.16 mg/actuat / [...] inhale 1 puff twice daily BUDESONIDE-FORMOTEROL FUMARATE [id number] Bettina Vaca RN Start: 10-12-2013 SYMBICORT 160- 4.5 MCG/ACT AERO as directed BUDESONIDE-FORMOTEROL FUMARATE [id number] Areli Estevez PA-C Comment on above: Inhale [...] capsule (20 sources) Vitamin D Start: 12-03-19 take 1 capsule by mouth every week Start: 12-03-2019 End: 10-15-2024 take 1 capsule by mouth every week cholecalciferol, Vitamin D3, (VITAMIN D3) 1,250 mcg (50,000 unit) cap capsule Indications: Vitamin D deficiency Take 1 capsule by mouth one time a week. 12 capsule 4 10/15/2024 Active Comment on above: Take 1 capsule by mo [facility] one time a week. dexamethasone 6 mg oral tablet (1 source) Corticosteroid Start: 07-24-19 23 take 6 mg by mouth once daily Dexamethasone Active 6 MG PO DAILY 01 21July 24, 2022 12:00am furosemide 20 mg oral tablet (20 sources) Loop Diuretic Start: 01-23-20 End: 11-16-19 25 take 1 tablet by mouth once daily Start: 01-22-2021 End: 11-15-2024 Comment on above: [...] injector (20 sources) Insulin Analogue Start: 01-15-20 Start: 12-18-2024 End: 02-28-2025 insulin glargine (LANTUS [...] 5 Each 12/07/2023 03/12/2024 Discontinued Start: 11-07-2023 Insulin Glargi [...] UNI T/ML SOLN as directed INSULIN GLARGINE [id number] Chris Lott MD Start: 03-01-2012 LANTUS 100 UNI T/ML SOLN take at bedtime as instructed INSULIN GLARGINE [id number] Rosette Villarreal RN Comment on above: Inject 27 Units subc utaneously daily at bedtime. Give Lantus, not Basaglar per patient preference insulin aspart, human 100 unt/ml injectable solution (20 sources) Insulin Analogue Start: 12-18-2024 insulin aspart U-100 (NOVOLOG U-100 INSULIN ASPART) [...] sq three times a day INSULIN ASPART [id number] Bettina Vaca RN Comment on above: INJECT [...] take 1 tablet by mouth once daily Start: 12-23-2021 End: 02-15-2022 take 1 tablet [...] tablet by mouth twice daily OMEPRAZOLE MAGNESIUM [id number] Areli Estevez PA-C Start: 07-09-2013 End: 07-09-2013 Prilosec Discontinued [facility] 2012 12:00am July 09, 2013 10:44am Start: 07-09-2013 End: 07-09-2013 Prilosec Discontinued Decemb er 2012 1:00am July 09, 2013 11:44am Start: 03-23-2013 PRILOSEC OTC 2 0 MG TBEC .12 OMEPRAZOLE MAGNESIUM [id number] Chris Lott MD Start: 03-01-2012 End: 11-15-2012 take 1 tablet by mouth twice daily OMEPRAZOLE 20 MG CPDR One tablet by mouth twice daily OMEPRAZOLE [id number] Rosette Villarreal RN Comment on above: Take 1 capsule by mo uth once daily. Take 1 tablet by julito th twice daily. 1/2 hr before meal. QUEtiapine 25 mg oral tablet (1 source) Atypical Antipsychotic Start: 3 take 12.5 mg by mouth at bedtime Quetiapine Active 12.5 MG PO AT BEDTIME 0 July 22, 2022 12:00am ramipril 10 mg oral capsule (20 sources) Angiotensin Converting Enzyme Inhibitor Start: End: 4 take 1 capsule by mouth twice daily Start: 03-01-2012 take 1 tablet by julito th twice daily ALTACE 10 MG CAPS One tablet by mouth twice daily RAMIPRIL [id number] Rosette Villarreal RN Comment on above: Take [...] mg by mouth at bedtime as needed Start: 02-11-2022 take 2.5 mg by mouth [...] MG T ABS as needed ZOLPIDEM TARTRATE [id number] Areli Estevez PA-C Comment on above: Take [...] NEEDED as needed for Severe Pain (6-10/10) 30 0 March 11, 2016 12:00am April 21, [...] tablet (5 sources) Factor Xa Inhibitor Start: 7 End: take 1 tablet by mouth twice daily ELIQUIS 5 MG TABS One tablet by mouth twice daily APIXABAN [id number] Bettina Vaca RN aspirin 81 mg delayed release oral tablet (20 sources) Nonsteroidal Anti-inflammatory Drug Start: 8 End: Aspirin 81 mg tablet,delayed release (DR/EC) Discontinued 81 mg PO DAILY as needed for heart health November 15, 2024 8:31am January 14, 2025 10:12am Start: 12-06-2016 End: 11-15-2024 take 1 tablet by mouth once daily Aspirin 81 mg tablet,delayed release (DR/EC) Discontinued 81 mg PO DAILY November 24, 2017 12:00am November 15, 2024 8:35am heart health Start: 03-01-2012 take 1 tablet by julito th once daily ASPIRIN 81 MG TABS One tablet by mouth daily ASPIRIN [id number] Rosette Villarreal RN Start: 03-01-2012 take 1 tablet by julito th once daily ASPIRIN EC 81 MG TBEC One tablet by mouth daily ASPIRIN [id number] Bettina Vaca RN Comment on above: Take 1 tablet by julito th once daily. Take 1 tablet by julito two times a day. benzonatate 100 mg oral capsule (20 sources) Non-narcotic Antitussive Start: 04-18-20 End: 01-16-20 take 1 capsule by mouth three times daily Benzonatate 100 mg capsule Discontinued 100 mg PO THREE TIMES A DAY June 13, 2024 1:00am November 03, 2024 7:03am cefdinir 300 mg oral capsule (20 sources) Cephalosporin Antibacterial Start: 07-24-19 End: 08-02-19 take 1 capsule by mouth twice daily Cefdinir 300 mg capsule Discontinued 300 mg PO TWICE A DAY 2 1 0 July 24, 2022 1:00am August 02, 2022 1:32pm cephalexin 500 mg oral capsule (2 sources) Cephalosporin Antibacterial Start: 09-28-19 End: 10-05-19 take 1 capsule by mouth four times daily cephALEXin (KEFLEX) 500 mg capsule Take 1 capsule by mouth four times daily for 7 days. 28 capsule 0 09/27/2022 09/30/2022 Discontinued Comment on above: Take 1 capsule by mo [facility] four times daily for 7 days. [...] capsule (20 sources) Calcium Channel Ariella Start: 6 End: take 1 capsule by mouth once [...] heart Start: 03-01-2012 take 1 tablet by julito th twice daily CARDIZEM CD 180 MG [id number] One tablet by mouth twice daily DILTIAZEM HCL COATED BEADS [id number] Rosette Villarreal RN docusate sodium 100 mg [...] Ergocalciferol (Vitamin D2) 50,000 UNIT capsule Discontinued 52787 U PO SA January 19, 2019 8:14pm December 03, 2019 2:13pm SUPPLEMENT Start: 04-21-2016 End: 12-03-2019 Ergocalciferol (Vitamin D2) 50,000 UNIT capsule Discontinued 92514 U PO Q7D@1700 2 0 April 21, 2016 12:00am January 19, 2019 8:15pm Start: 11-15-2012 take 1 tablet by julito th once daily VITAMIN D (ERGOCALCIFEROL) 72952 UNIT CAPS One tablet by mouth daily ERGOCALCIFEROL [id number] Chris Lott MD esomeprazole 40 mg injection (6 sources) Proton Pump Inhibitor Start: 11-15-2012 End: 03-23-2013 take 1 tablet by mouth once daily NEXIUM 40 MG CPDR One tablet by mouth daily ESOMEPRAZOLE MAGNESIUM [id number] Chris Lott MD 72 hr fentaNYL 0.025 [...] nasal spray Indications: Post-nasal drip Use 1 Converse in each nostril once daily. 1 Each 3 07/02/2021 12/23/2021 Discontinued Comment on above: Use 1 Converse in each nostril once daily. fluticasone / [...] Insuln.Pen Discontinued 25 U SC AT BEDTIME 0 March 11, 2016 12:00am April 21, [...] 15 units sq twice daily INSULIN DETEMIR [id number] Bettina Vaca RN Insulin Glargine-Yfgn (20 sources) Start: 08-02-2022 End: 11-28-2023 Insulin Glargine-Yfgn 100 un it/mL (3 mL) insulin pen Discontinued 24 U SC TWICE A DAY August 02, 2022 1:35pm November 28, 2023 9:37pm Start: 08-02-2022 Insulin Glargi ne-Yfgn Active 24 [...] SC AT BEDTIME July 24, 2022 12:00am Insulin Glargine-Yfgn (1 source) Start: 08-02-2022 End: [...] U SC BEFORE MEALS AND AT BEDTIME Protocol: - Use for Total Daily Dose of Insulin 56-80 units- Patient who are insulin resistant or septicHIGH MEDIUM DOSING ALGORITHM Condition: 150-199 mg/dl = 2 units Condition: 200-259 mg/dl = 4 units Condition: 260-324 mg/dl = 6 units Condition: 325-374 mg/dl = 8 units Condition: 375-409 mg/dl = 10 units Condition: 410-449 mg/dl = 11 units Condition: Greater than 449 call physician 0 0 August 02, 2022 1:00am November 28, 2023 9:37pm Please contact the information source for Protocol details. Start: 08-02-2022 End: 11-28-2023 Insulin Lispro (Humalog Kwik pen Insulin) 100 unit/mL Insulin Pen Discontinued 0 U SC BEFORE MEALS AND AT BEDTIME 0 0 August 02, 2022 1:00am November 28, 2023 9:37pm Please contact the information source for Protocol details. Start: 08-02-2022 End: 11-28-2023 Insulin Lispro (Humalog Kwik pen Insulin) 100 unit/mL Insulin Pen Discontinued 0 UNIT SC BEFORE MEALS AND AT BEDTIME 0 August 02, 2022 1:00am November 28, 2023 9:37pm Start: 06-22-2022 Start: 06-22-2022 Insulin Lispro 100 unit/mL solution [...] IT/ML SOLN as directed INSULIN LISPRO (HUMAN) [id number] Chris Lott MD Start: 03-01-2012 HUMALOG 100 UN IT/ML SOLN Take as directed INSULIN LISPRO (HUMAN) [id number] Rosette Villarreal RN Start: 03-01-2012 End: 07-21-2015 HUMALOG 100 UNIT/ML SOLN Thiago e as directed INSULIN LISPRO (HUMAN) [id number] Chris Lott MD Comment on above: INJECT [...] on above: Take 1 capsule by mo [facility] once daily. Lactobacillus acidophilus (20 sources) Start: 01-22-2021 End: 06-22-2021 Lactobacillus Acidophilus Discontinued [id number] MMU CELLS PO DAILY January 21, 2021 11:00pm June 22, 2021 11:26am Start: 01-22-2021 End: 06-22-2021 Lactobacillus Acidophilus Di scontinued 15818 MMU CELLS PO DAILY January 22, 2021 12:00am June 22, 2021 12:26pm Lactobacillus Acidophilus 10 billion cell capsule (12 sources) Start: 01-22-2021 End: 06-22-2021 Lactobacillus Acidophilus 10 billion cell capsule Discontinued [id number] NMA PO DAILY January 22, 2021 12:00am June 22, 2021 12:26pm Start: 01-22-2021 End: 06-22-2021 Lactobacillus Acidophilus 10 billion cell capsule Discontinued [id number] NMA PO DAILY January 21, 2021 11:00pm June 22, 2021 11:26am meloxicam 15 mg oral tablet (7 sources) Nonsteroidal Anti-inflammatory Drug Start: 09-01-2023 End: 10-01-2023 take 1 tablet by mouth once daily for pain meloxicam (MOBIC) 15 mg tablet Take 1 tablet by mouth once daily. for pain. Take with food. 30 tablet 0 09/01/2023 10/01/2023 Comment on above: Take 1 tablet by [facility] once daily. for pain. Take with food. nitrofurantoin 100 mg oral tablet (12 sources) Nitrofuran Antibacterial Start: 06-13-2024 End: 11-15-2024 take 1 capsule by mouth twice daily at mealtime Nitrofurantoin 100 mg capsule Discontinued 100 mg PO TWICE A DAY June 13, 2024 1:00am November 15, 2024 8:33am must administer with a meal/food INSULIN ISOPHANE HUMAN SUSP (3 sources) Start: 03-01-2012 HUMULIN N SUSP take as directed INSULIN ISOPHANE HUMAN SUSP [id number] Rosette Jama.Tx.Gluc Intol,Lf,Soy-Fiber (Glucerna 1.2 Will) 0.06-1.2 gram-kcal/mL Liquid [...] MEALS 0 August 02, 2022 12:00am nystatin [id number] unt/ml oral suspension (15 sources) Polyene Antifungal [...] tablet by mouth daily POLYSACCHARIDE IRON COMPLEX [id number] Chris Lott MD Start: 11-19-2016 take 1 tablet by julito once daily FERREX 150 150 MG CAPS One tablet by mouth daily POLYSACCHARIDE IRON COMPLEX [id number] Bettina Vaca RN pravastatin sodium 10 mg [...] 1/2 tablet by mouth daily PRAVASTATIN SODIUM [id number] Chris Lott MD rivaroxaban 10 mg oral [...] ) by mouth at bedtime (STOP) SIMVASTATIN [id number] Chris Lott MD Start: 03-01-2012 take 1 tablet by julito th at bedtime ZOCOR 10 MG TABS One tablet by mouth at bedtime. SIMVASTATIN [id number] Rosette Villarreal RN sulfamethoxazole 800 mg / trimethoprim 160 mg oral tablet (13 sources) Dihydrofolate Reductase Inhibitor Antibacterial, Sulfonamide Antimicrobial [...] q 6 hours as needed TRAMADOL HCL [id number] Bettina Vaca RN (6 sources) Start: 06-13-2024 [...] Translations: [Periapical abscess without sinus] 05-07-2024 Episodic E Codes: Natural/environment (1 source) Scratched by cat, initial encounter; Translations: [Cat scratch of left hand, initial encounter] Onset: 5 Episodic Esophageal disorders (20 sources) Gastroesophageal reflux [...] Chronic Immunizations and screening for infectious disease (2 sources) Encounter for immunization; Translations: [Need for vaccination] Onset: 5 Episodic Inflammatory diseases of female pelvic organs (20 sources) Cellulitis; Translations: [Abscess of vulva] Episodic Miscellaneous mental health disorders (6 sources) Primary insomnia; Translations: [Primary insomnia] Onset: 7 09-21-2023 Chronic Mood disorders (20 sources) Depressive disorder; Translations: [Other specified depressive episodes] Onset: 3 12-16-2005 Chronic Noninfectious gastroenteritis (13 sources) Enteritis of small intestine; Translations: [Noninfective gastroenteritis and colitis, unspecified] 09-20-2024 Episodic Nonmalignant breast conditions (1 source) Unspecified lump in right breast, subareolar; Translations: [Unspecified lump in right breast, subareolar] Onset: 5 Episodic Nonspecific chest pain (20 sources) Chest [...] of the circulatory system] 06-05-2023 Episodic Other circulatory disease (2 sources) History of supraventricular tachycardia; Translations: [Personal history of other [...] Onset: 4 Episodic Other connective tissue disease (10 sources) Trochanteric bursitis; Translations: [Trochanteric bursitis, unspecified hip] 10-19-2024 Episodic Other connective tissue disease (10 sources) Thigh pain; Translations: [Pain in left [...] Translations: [Slow transit constipation] 01-29-2025 Episodic Other hematologic conditions (1 source) ESR [...] injuries and conditions due to external causes (9 sources) Contusion; Translations: [Other injury of unspecified [...] Episodic Other nervous system disorders (3 sources) Buitmab-Hjpfu-Kqsxv disease; Translations: [Hereditary motor and sensory neuropathy] [...] nutritional; endocrine; and metabolic disorders (20 sources) H/O: diabetes mellitus; Translations: [Personal history of other endocrine, nutritional and metabolic disease] 12-15-2023 Episodic Other nutritional; endocrine; and metabolic disorders (11 sources) History of diabetes mellitus type 2; [...] Translations: [Other specified epidermal thickening] 01-02-2024 Episodic Other upper respiratory infections (20 sources) Acute upper respiratory infection; Translations: [Acute upper respiratory infection, unspecified] 10-01-2023 Episodic Pneumonia (except that caused by tuberculosis [...] Flushing; Translations: [Facial flushing] Onset: 5 Episodic Respiratory failure; insufficiency; arrest (adult) (20 sources) Acute respiratory failure; Translations: [Acute respiratory failure with hypoxia] Onset: 3 Resolved: 4 Episodic Unclassified (1 source) Class 3 severe obesity due to excess calories with body mass index (BMI) of 40.0 to 44.9 in adult, unspecified whether serious comorbidity present (HCC); Translations: [Class 3 severe obesity due to excess calories with body mass index (BMI) of 40.0 to 44.9 in adult, unspecified whether serious comorbidity present (HCC)] Onset: 5 Viral infection (12 sources) COVID-19; Translations: [Pneumonia due to other virus not elsewhere classified] Episodic Past or Other Problems Problem Classification Problem Date Documented Date Episodic/Chronic Conditions associated with dizziness or vertigo (14 sources) Lightheadedness; Translations: [Dizziness and giddiness] Onset: [...] Translations: [Pain in left thigh] Onset: 11-08-19 25 Episodic Other connective tissue disease (1 source) Pain in left leg; Translations: [Pain in left leg] Onset: 10-25-19 Episodic Other gastrointestinal disorders (1 source) Slow transit constipation; Translations: [Slow transit constipation] Onset: 01-30-20 Episodic Other gastrointestinal disorders (1 source) Diarrhea, unspecified; Translations: [Diarrhea, unspecified] Onset: 10-05-19 Episodic Other lower respiratory disease (3 sources) Other forms of dyspnea; Translations: [Other respiratory abnormalities] Onset: 07-03-2011-22-2022 Episodic Other lower respiratory disease (1 source) Shortness of breath; Translations: [Shortness of breath] Onset: 07-03-20 Episodic Other nutritional; endocrine; and metabolic disorders (20 sources) Obesity; Translations: [Obesity, unspecified] Resolved : 05-11-2005-11-2021 Chronic Phlebitis; thrombophlebitis and thromboembolism (3 sources) Deep venous thrombosis of lower extremity; Translations: [Acute embolism and thrombosis of unspecified deep veins of left distal lower extremity] Onset: 11-20-1911-19-2016 Episodic Residual codes; unclassified (20 sources) Insomnia; Translations: [Insomnia, unspecified] Onset: 06-01-20 07 06-01-2007 Episodic Superficial injury; contusion (10 sources) Contusion of left thigh; Translations: [Contusion of left thigh, initial encounter] Onset: 10-30-1911-03-2024 Episodic Unclassified (1 source) Patient encounter status 03-13-2025 Urinary tract infections (16 sources) Acute cystitis; Translations: [Acute cystitis without hematuria] Onset: 06-28-2006-11-2024 Episodic Results Test Name Value Interpretation Reference Range Facility CNOVon 05-29-2025 CNOV Normal [facility] CNPNon 05-28-2025 CNPN Normal [facility] CNPNon 05-21-2025 CNPN Normal [facility] 12 Lead EKGon 05-19-2025 12 Lead EKG Normal [facility] Basic Metabolic Profile (BMP )on 05-19-2025 BUN/CRE 28.9 RATIO High 05-06 [facility] Comment on above: Performed By: #### L 500.2500, L100.0100, L501.4021 ####[facility] [address] [place], [address] Calcium [Mass/Vol] 9.1 mg/dL Normal 7.6-11.0 [facility] Comment on above: Performed By: #### L 500.2500, L100.0100, L501.4021 ####[facility] [address] [place], [address] Chloride [Moles/Vol] 102 mmol/L Normal 98-108 [facility] Comment on above: Performed By: #### L 500.2500, L100.0100, L501.4021 ####[facility] [address] [place], [address] CO2 [Moles/Vol] 24.7 mmol/L Normal 21.0-32.0 [facility] Comment on above: Performed By: #### L 500.2500, L100.0100, L501.4021 ####[facility] [address] [place], [address] Creatinine [Mass/Vol] 0.90 mg/dL Normal 0.70-1.20 [facility] Comment on above: Performed By: #### L 500.2500, L100.0100, L501.4021 ####[facility] [address] [place], [address] ECRCL 72.05 ml/min Normal 50-250 [facility] Comment on above: Performed By: #### L 500.2500, L100.0100, L501.4021 ####[facility] [address] [place], [address] GAP 11 Normal 5-15 [facility] Comment on above: Performed By: #### L 500.2500, L100.0100, L501.4021 ####[facility] [address] [place], [address] GFR/1.73 sq M.predicted among non-blacks MDRD (S/P/Bld) [Vol rate/Area] 65 mL/min/{1.73_m2} Normal >60 [facility] Comment on above: Result Comment: mL/m in/1.73m2 CKD-EPI Creatinine Equation (2020) Performed By: #### L 500.2500, L100.0100, L501.4021 ####[facility] [address] [place], [address] Glucose [Mass/Vol] 150 mg/dL High 70-99 [facility] Comment on above: Performed By: #### L 500.2500, L100.0100, L501.4021 ####[facility] [address] [place], [address] Potassium [Moles/Vol] 3.9 mmol/L Normal 3.3-5.1 [facility] Comment on above: Performed By: #### L 500.2500, L100.0100, L501.4021 ####[facility] [address] [place], [address] Sodium [Moles/Vol] 138 mmol/L Normal 133-145 [facility] Comment on above: Performed By: #### L 500.2500, L100.0100, L501.4021 ####[facility] [address] [place], [address] Urea nitrogen [Mass/Vol] 26 mg/dL High 4-19 [facility] Comment on above: Performed By: #### L 500.2500, L100.0100, L501.4021 ####[facility] [address] [place], [address] Bedside Glucoseon 05-19-2025 FINGERSTICK GLU 172 mg/dL High 74-106 [facility] Comment on above: Result Comment: MERCEDES SUBRAMANIAN OF PATIENT CARE PER NURSING PROTOCOL Performed By: #### L 501.080 ####[facility] [address] [place], [address] CBC W/Diff, Automatedon 11-0 Absolute Lymph 1.19 X10 3/uL Normal 0.83-4.51 [facility] Comment on above: Performed By: #### L 500.2500, L100.0100, L501.4021 ####[facility] [address] [place], [address] Absolute Neut 3.9 X10 3/uL Normal 2.0-7.7 [facility] Comment on above: Performed By: #### L 500.2500, L100.0100, L501.4021 ####[facility] [address] [place], [address] Basophils/100 WBC (Bld) 0.5 % Normal 0-1 [facility] Comment on above: Performed By: #### L 500.2500, L100.0100, L501.4021 ####[facility] [address] [place], [address] Eosinophils/100 WBC (Bld) 5.0 % Normal 0-5 [facility] Comment on above: Performed By: #### L 500.2500, L100.0100, L501.4021 ####[facility] [address] [place], [address] Erythrocyte distribution width (RBC) [Ratio] 12.3 % Normal 11.6-14.6 [facility] Comment on above: Performed By: #### L 500.2500, L100.0100, L501.4021 ####[facility] [address] [place], [address] Hematocrit (Bld) [Volume fraction] 36.8 % Low 37-47 [facility] Comment on above: Performed By: #### L 500.2500, L100.0100, L501.4021 ####[facility] [address] [place], [address] Hemoglobin (Bld) [Mass/Vol] 12.2 g/dL Normal 12.0-15.0 [facility] Comment on above: Performed By: #### L 500.2500, L100.0100, L501.4021 ####[facility] [address] [place], [address] IG% 0.200 Normal 0.0-0.9 [facility] Comment on above: Result Comment: IG% - Immature Granulocytes (promyelocytes, myelocytes andmetamyelocytes) > 1% indicates that a LEFT SHIFT is Present. Performed By: #### L 500.2500, L100.0100, L501.4021 ####[facility] [address] [place], [address] Lymphocytes/100 WBC (Bld) 20.4 % Normal 19-41 [facility] Comment on above: Performed By: #### L 500.2500, L100.0100, L501.4021 ####[facility] [address] [place], [address] MCH (RBC) [Entitic mass] 29.1 pg Normal 27.0-32.0 [facility] Comment on above: Performed By: #### L 500.2500, L100.0100, L501.4021 ####[facility] [address] [place], [address] MCHC (RBC) [Mass/Vol] 33.2 g/dL Normal 32-36 [facility] Comment on above: Performed By: #### L 500.2500, L100.0100, L501.4021 ####[facility] [address] [place], [address] MCV (RBC) [Entitic vol] 87.8 fL Normal 81-99 [facility] Comment on above: Performed By: #### L 500.2500, L100.0100, L501.4021 ####[facility] [address] [place], [address] Monocytes/100 WBC (Bld) 7.4 % Normal 0-10 [facility] Comment on above: Performed By: #### L 500.2500, L100.0100, L501.4021 ####[facility] [address] [place], [address] Neutrophils/100 WBC (Bld) 66.5 % Normal 47-70 [facility] Comment on above: Performed By: #### L 500.2500, L100.0100, L501.4021 ####[facility] [address] [place], [address] Nucleated RBC (Bld) [#/Vol] 0 10*3/uL Normal 0-5 [facility] Comment on above: Performed By: #### L 500.2500, L100.0100, L501.4021 ####[facility] [address] [place], [address] Platelet mean volume (Bld) [Entitic vol] 11.8 fL Normal 6.2-12.0 [facility] Comment on above: Performed By: #### L 500.2500, L100.0100, L501.4021 ####[facility] [address] [place], [address] Platelets (Bld) [#/Vol] 180 10*3/uL Normal 150-450 [facility] Comment on above: Performed By: #### L 500.2500, L100.0100, L501.4021 ####[facility] [address] [place], [address] RBC (Bld) [#/Vol] 4.19 10*6/uL Low 4.2-5.4 [facility] Comment on above: Performed By: #### L 500.2500, L100.0100, L501.4021 ####[facility] [address] [place], [address] RDW SD 39.4 fl Normal 35.1-43.9 [facility] Comment on above: Performed By: #### L 500.2500, L100.0100, L501.4021 ####[facility] [address] [place], [address] WBC (Bld) [#/Vol] 5.8 10*3/uL Normal 4.4-11.0 [facility] Comment on above: Performed By: #### L 500.2500, L100.0100, L501.4021 ####[facility] [address] [place], [address] Chest PA and Lateralon 05-19 Chest PA and Lateral Normal [facility] Emergency Department Summary on 05-19-2025 Emergency Department Summary Normal [facility] L501.4021on 05-19-2025 Trop T High Sen 14 ng/L Normal <=14 [facility] Comment on above: Performed By: #### L 500.2500, L100.0100, L501.4021 ####[facility] [address] [place], [address] Troponin T HS 2 HRon 025 Trop T High Sen 13 ng/L Normal <=14 [facility] Comment on above: Result Comment: Hemo lysis present, Results??could be affected.?? Performed By: #### L 499.0042 ####[facility] [address] [place], [address] Troponin T HS 4 HRon 025 Trop T High Sen Normal <=14 [facility] Comment on above: Result Comment: Canc elled via OM: Order cancelled - Patient discharged Performed By: #### L 499.0043 ####[facility] [address] [place], [address] CNPTOUTREACHon 05-14-2025 CNPTOUTREACH [facility] CNPNon 05-13-2025 CNPN Normal [facility] CNPNon 05-10-2025 CNPN [facility] CNOVon 05-08-2025 CNOV Normal [facility] CNPNon 05-07-2025 CNPN Normal [facility] CNOVon 05-06-2025 CNOV Normal [facility] CNPTOUTREACHon 05-03-2025 CNPTOUTREACH Normal [facility] 12 Lead EKGon 04-04-2025 12 Lead EKG Normal [facility] Anion gap in Serum or Plasma Ordered By: Mark Leong on 04-04-2025 Anion gap [Moles/Vol] 12 mmol/L - [facility] BUN/creatinine ratioOrdered By: Mark Leong on 04-04-2025 Urea nitrogen/Creatinine [Mass ratio] 21.1 mg/mg High 05-06 [facility] Basic Metabolic Profile (BMP )on 04-04-2025 BUN/CRE 21.1 RATIO High 05-06 [facility] Comment on above: Performed By: #### L 500.2500 ####[facility] [address] [place], [address] Calcium [Mass/Vol] 9.6 mg/dL Normal 7.6-11.0 [facility] Comment on above: Performed By: #### L 500.2500 ####[facility] [address] [place], [address] Chloride [Moles/Vol] 101 mmol/L Normal 98-108 [facility] Comment on above: Performed By: #### L 500.2500 ####[facility] [address] [place], [address] CO2 [Moles/Vol] 26.1 mmol/L Normal 21.0-32.0 [facility] Comment on above: Performed By: #### L 500.2500 ####[facility] [address] [place], [address] Creatinine [Mass/Vol] 0.86 mg/dL Normal 0.70-1.20 [facility] Comment on above: Performed By: #### L 500.2500 ####[facility] [address] [place], [address] ECRCL 75.63 ml/min Normal 50-250 [facility] Comment on above: Performed By: #### L 500.2500 ####[facility] [address] [place], [address] GAP 12 Normal 5-15 [facility] Comment on above: Performed By: #### L 500.2500 ####[facility] [address] [place], [address] GFR/1.73 sq M.predicted among non-blacks MDRD (S/P/Bld) [Vol rate/Area] 69 mL/min/{1.73_m2} Normal >60 [facility] Comment on above: Result Comment: mL/m in/1.73m2 CKD-EPI Creatinine Equation (2020) Performed By: #### L 500.2500 ####[facility] [address] [place], [address] Glucose [Mass/Vol] 111 mg/dL High 70-99 [facility] Comment on above: Performed By: #### L 500.2500 ####[facility] [address] [place], [address] Potassium [Moles/Vol] 3.9 mmol/L Normal 3.3-5.1 [facility] Comment on above: Result Comment: Hemo lysis present, Results??could be affected.?? Performed By: #### L 500.2500 ####[facility] [address] [place], [address] Sodium [Moles/Vol] 139 mmol/L Normal 133-145 [facility] Comment on above: Performed By: #### L 500.2500 ####[facility] [address] [place], [address] Urea nitrogen [Mass/Vol] 18 mg/dL Normal 4-19 [facility] Comment on above: Performed By: #### L 500.2500 ####[facility] [address] [place], [address] Carbon dioxide, total [Moles /volume] in Central venous bloodOrdered By: Mark Leong on 04-04-2025 CO2 [Moles/Vol] 26.1 mmol/L 21.0-32.0 [facility] Chloride assayOrdered By: Amanda Leong on 04-04-2025 Chloride [Moles/Vol] 101 mmol/L 98-108 [facility] Electrocardiogram reportOrde red By: Lenin Michaels on 04-04-2025 EKG study [facility] Cardiovascular Services [address] [place] [address] 12 Lead EKG 04/04/251946 MR#: [id number] Acct: [id number] Name: ATTILA KIDD Rep #:[id number] : 1945 79 From: Lenin Michaels MD Attending Dr: Status: DEP E R Ordering Dr: Mark Leong MD Date: 04/04 Location: ED Sex: F C Admitted: Test Reason : DYSRHYTHMIA Blood Pressure : */* mmHG Vent. Rate : 64 BPM Atrial Rate : 64 BPM P-R Int : 116 ms QRS Dur : 86 ms QT Int : 426 ms P-R-T Axes : 59 22 43 degrees QTcB Int : 439 ms Normal sinus rhythm with sinus arrhythmia Normal ECG Confirmed by NAYANA JOSE, LENIN ([id number]), marketing editor RHONDA BRADFORD ([id number]) on 04/05/2025 10:48:26 AM Referred By: AMANDA Confirmed By: LENIN MICHAELS MD 04/05/25 1048 Date _ Lenin Michaels MD CC: Dr. Octavio Reza MD; Dr. Mark Leong MD ~ Signed [facility] Other Phone: Emergency Department Summary on 04-04-2025 Emergency Department Summary Normal [facility] Glomerular filtration rate ( GFR) estimation/1.73 sq m using serum, plasma, or whole bOrdered By: Markniranjan Leong on 04-04-2025 GFR/1.73 sq M.predicted among non-blacks MDRD (S/P/Bld) [Vol rate/Area] 69 mL/min/{1.73_m2} >60 [facility] Comment on above: mL/min/1.73m2 CKD-EP I Creatinine Equation (2020) Potassium measurement (mass/ volume)Ordered By: [facility]-04-[facility] Potassium (Unsp spec) [Mass/Vol] 3.9 mmol/L 3.3-5.1 [facility] Comment on above: Hemolysis present, R esults could be affected. Serum creatinine measurement (mass/volume)Ordered By: Mark Leong on 04-04-2025 Creatinine [Mass/Vol] 0.86 mg/dL 0.70-1.20 [facility] Serum glucose measurement (m ass/volume)Ordered By: Mark Leong on 04-04-2025 Glucose [Mass/Vol] 111 mg/dL High 70-99 [facility] Serum or plasma calcium zora urement (mass/volume)Ordered By: [facility] on 04-04-2025 Calcium [Mass/Vol] 9.6 mg/dL 7.6-11.0 [facility] Serum or plasma urea nitroge n measurement (mass/volume)Ordered By: [facility] on 04-04-2025 Urea nitrogen [Mass/Vol] 18 mg/dL 4-19 [facility] Sodium levelOrdered By: [facility] on 04-04-2025 Sodium [Moles/Vol] 139 mmol/L 133-145 [facility] Breast imaging reportOrdered By: Irene Baltazar on 04-02-2025 Study report [facility] Imaging Services [address] [place] [address] SCRN MAMM (CAD)W/MINAL MARQUES MR#: [id number] Acct: [id number] Name: ATTILA KIDD Herbert Rep #: [id number] : 1945 F 79 From: Steve Covington MD PCP: Dr. Octavio Reza MD Status: RE G CLI Study:SCRN MAMM (CAD)W/MINAL BILAT Date of Exa m: 04/02/25 Exam# [id number] Ordering Dr: Octavio Reza MD EXAM: SCRN MAMM (CAD)W/MINAL BILAT DATE: 04/02/2025 CLINICAL HISTORY: F, Age 79 y/o , SCREENING TECHNIQUE: Procedure Code: BISMWCADBTOM Modality: MG Procedure: SCRN MAMM (CAD)W/MINAL BILAT COMPARISON: Prior exam(s) were compared FINDINGS: TISSUE DENSITY: The breasts are heterogeneously dense, which may obscure small masses. Bilateral Breast Mammographic Findings: No suspicious masses, calcifications or other abnormalities are identified. BI/SCRN MAMM (CAD)W/MINAL BILAT IMPRESSION: No mammographic evidence of malignancy. OVERALL FINAL ASSESSMENT BI-RADS 1: NEGATIVE. RECOMMENDATION: Routine annual follow-up in 1 Year A letter with findings and recommendations will be mailed to the patient. Reading Location: [facility] CC: Dr. Octavio Reza MD ~ [employer] Attendant: Signed [facility] SCRN MAMM (CAD)W/MINAL BILATo n 04-02-2025 SCRN MAMM (CAD)W/MINAL BILAT Normal [facility] CNPNon 03-29-2025 CNPN Normal [facility] Urinalysis complete panel (U )on 03-26-2025 Bacteria LM.HPF (Urine sed) [#/Area] Negative Normal Negative [facility] Comment on above: Order Comment: Speci men Type: URINE SPECIMENOrdering Facility: [facility] Address: [address] [place] [address] Performed By: #### 2 4356-8 ####[facility] LABCLIA [id number] [place] [address] [place] Bilirubin Ql (U) Negative Normal Negative [facility] Comment on above: Order Comment: Speci men Type: URINE SPECIMENOrdering Facility: [facility] Address: [address] [place] [address] Performed By: #### 2 4356-8 ####[facility] LABCLIA [id number] [address] [place] [address] [place] Clarity (Unsp spec) Clear Normal Clear [facility] Comment on above: Order Comment: Speci men Type: URINE SPECIMENOrdering Facility: [facility] Address: [address] [place] [address] Performed By: #### 2 4356-8 ####[facility] LABCLIA [id number] [address], [facility] [place] Color (U) Yellow Normal Yellow [facility] Comment on above: Order Comment: Speci men Type: URINE SPECIMENOrdering Facility: [facility] Address: [address] [place] [address] Performed By: #### 2 4356-8 ####[facility] LABCLIA [id number] [address], [facility] [place] Epithelial cells LM.HPF (Urine sed) [#/Area] None Seen Normal [facility] Comment on above: Order Comment: Speci men Type: URINE SPECIMENOrdering Facility: [facility] Address: [address] [place] [address] Performed By: #### 2 4356-8 ####[facility] LABCLIA [id number] [address] [place] [address] [place] Glucose Test strip (U) [Mass/Vol] Negative Normal Negative [facility] Comment on above: Order Comment: Speci men Type: URINE SPECIMENOrdering Facility: [facility] Address: [address] [place] [address] Performed By: #### 2 4356-8 ####[facility] LABCLIA [id number] [address] [place] [address] [place] Hemoglobin Ql (U) Negative Normal Negative [facility] Comment on above: Order Comment: Speci men Type: URINE SPECIMENOrdering Facility: [facility] Address: [address] [place] [address] Performed By: #### 2 4356-8 ####[facility] LABCLIA [id number] [address] [place] [address] [place] Hyaline casts (Urine sed) [#/Area] 0 /[LPF] Normal 0 /LPF [facility] Comment on above: Order Comment: Speci men Type: URINE SPECIMENOrdering Facility: [facility] Address: [address] [place] [address] Performed By: #### 2 4356-8 ####[facility] LABCLIA [id number] [address], [place] [address] [place] Ketones Ql (U) Negative Normal Negative [facility] Comment on above: Order Comment: Speci men Type: URINE SPECIMENOrdering Facility: [facility] Address: [address] [place] [address] Performed By: #### 2 4356-8 ####[facility] LABCLIA [id number] [address], [facility] [place] Leukocyte esterase Test strip Ql (U) 1+ Abnormal Negative [facility] Comment on above: Order Comment: Speci men Type: URINE SPECIMENOrdering Facility: [facility] Address: [address] [place] [address] Performed By: #### 2 4356-8 ####[facility] LABCLIA [id number] [facility] [address] [place] [address] [place] Nitrite Ql (U) Negative Normal Negative [facility] Comment on above: Order Comment: Speci men Type: URINE SPECIMENOrdering Facility: [facility] Address: [address] [place] [address] Performed By: #### 2 4356-8 ####[facility] LABCLIA [id number] [address], [facility] [place] pH (U) 6.0 [pH] Normal 5.0-8.0 [facility] Comment on above: Order Comment: Speci men Type: URINE SPECIMENOrdering Facility: [facility] Address: [address] [place] [address] Performed By: #### 2 4356-8 ####[facility] LABIA [id number] [place] [address] [place] Protein (U) [Mass/Vol] Negative Normal Negative Cl [facility] Comment on above: Order Comment: Speci men Type: URINE SPECIMENOrdering Facility: [facility] Address: [address] [place] [address] Performed By: #### 2 4356-8 ####[facility] LABIA [id number] [place] [address] [place] RBC LM.HPF (Urine sed) [#/Area] 0-2 /HPF Normal 0-2 /HPF [facility] Comment on above: Order Comment: Speci men Type: URINE SPECIMENOrdering Facility: [facility] Address: [address] [place] [address] Performed By: #### 2 4356-8 ####[facility] LABIA [id number] [place] [address] [place] Specific gravity (U) [Rel density] 1.015 Normal 1.005-1.030 [facility] Comment on above: Order Comment: Speci men Type: URINE SPECIMENOrdering Facility: [facility] Address: [address] [place] [address] Performed By: #### 2 4356-8 ####[facility] LABIA [id number] [place] [address] [place] Urobilinogen Ql (U) 0.2 EU/dL Normal 0.2-1.0 EU/dL [facility] Comment on above: Order Comment: Speci men Type: URINE SPECIMENOrdering Facility: [facility] Address: [address] [place] [address] Performed By: #### 2 4356-8 ####[facility] LABIA [id number] [place] [address] [place] WBC LM.HPF (Urine sed) [#/Area] 0-5 /HPF Normal 0-5 /HPF [facility] Comment on above: Order Comment: Speci men Type: URINE SPECIMENOrdering Facility: [facility] Address: [address] [place] [address] Performed By: #### 2 4356-8 ####[facility] LABIA [id number] [place] [address] [place] CNCNPATEDon 03-25-2025 CNCNPATED Normal [facility] CNPNon 03-22-2025 CNPN Normal [facility] Bacteria Ur Culton Bacteria identified Cx Nom (U) ORGANISM ID: 1 10,000 -<50,000 CFU/ml Normal urogenital lawanda Normal [facility] Comment on above: Performed By: #### 2 4356-8, 630-4 ####[facility] LABIA [id number] [place] [address] [place] CBC panel Auto (Bld)on 03-19 Erythrocyte distribution width (RBC) [Ratio] 12.6 % 11.5 - 15.0 % [facility] Hematocrit (Bld) [Volume fraction] 38.9 % 36.0 - 46.0 % [facility] Hemoglobin (Bld) [Mass/Vol] 12.5 g/dL 11.5 - 15.5 g/dL [facility] Interpretation and review of laboratory results Abnormal [facility] MCH (RBC) [Entitic mass] 29.6 pg 26. 0 - 34.0 pg [facility] MCHC (RBC) [Mass/Vol] 32.1 g/dL 30.5 - 36.0 g/dL [facility] MCV (RBC) [Entitic vol] 92.0 fL 80.0 - 100.0 fL [facility] Nucleated RBC (Bld) [#/Vol] NINF [facility] Platelet mean volume (Bld) [Entitic vol] 13.0 fL High 9.0 - 12.7 fL [facility] Platelets (Bld) [#/Vol] 214 10*3/uL [facility] RBC (Bld) [#/Vol] 4.23 10*6/uL 3.90 - 5.2 0 m/uL [facility] WBC (Bld) [#/Vol] 5.95 10*3/uL [facility] Erythrocyte distribution width (RBC) [Ratio] 12.6 % Normal 11.5-15.0 [facility] Comment on above: Order Comment: Speci men Type: BLOOD SPECIMENOrdering Facility: [facility] Address: [address] [place] [address] Performed By: #### 5 8410-2 ####[facility] [id number] [address] [place] Hematocrit (Bld) [Volume fraction] 38.9 % Normal 36.0-46.0 [facility] Comment on above: Order Comment: Speci men Type: BLOOD SPECIMENOrdering Facility: [facility] Address: [address] [place] [address] Performed By: #### 5 8410-2 ####[facility] [id number] [address] [place] Hemoglobin (Bld) [Mass/Vol] 12.5 g/dL Normal 11.5-15.5 [facility] Comment on above: Order Comment: Speci men Type: BLOOD SPECIMENOrdering Facility: [facility] Address: [address] [place] [address] Performed By: #### 5 8410-2 ####[facility] LABIA [id number] [place] [address] [place] MCH (RBC) [Entitic mass] 29.6 pg Normal 26.0-34.0 [facility] Comment on above: Order Comment: Speci men Type: BLOOD SPECIMENOrdering Facility: [facility] Address: [address] [place] [address] Performed By: #### 5 8410-2 ####[facility] LABIA [id number] [place] [address] [place] MCHC (RBC) [Mass/Vol] 32.1 g/dL Normal 30.5-36.0 [facility] Comment on above: Order Comment: Speci men Type: BLOOD SPECIMENOrdering Facility: [facility] Address: [address] [place] [address] Performed By: #### 5 8410-2 ####[facility] LABIA [id number] [place] [address] [place] MCV (RBC) [Entitic vol] 92.0 fL Normal 80.0-100.0 C [facility] Comment on above: Order Comment: Speci men Type: BLOOD SPECIMENOrdering Facility: [facility] Address: [address] [place] [address] Performed By: #### 5 8410-2 ####[facility] LABIA [id number] [place] [address] [place] Nucleated RBC (Bld) [#/Vol] 10*3/uL Normal <0.01 [facility] Comment on above: Order Comment: Speci men Type: BLOOD SPECIMENOrdering Facility: [facility] Address: [address] [place] [address] Performed By: #### 5 8410-2 ####[facility] LABIA [id number] [place] [address] [place] Platelet mean volume (Bld) [Entitic vol] 13.0 fL High 9.0-12.7 [facility] Comment on above: Order Comment: Speci men Type: BLOOD SPECIMENOrdering Facility: [facility] Address: [address] [place] [address] Performed By: #### 5 8410-2 ####[facility] LABCLIA [id number] [place] [address] [place] Platelets (Bld) [#/Vol] 214 10*3/uL Normal 150-400 [facility] Comment on above: Order Comment: Speci men Type: BLOOD SPECIMENOrdering Facility: [facility] Address: [address] [place] [address] Performed By: #### 5 8410-2 ####[facility] LABIA [id number] [place] [address] [place] RBC (Bld) [#/Vol] 4.23 10*6/uL Normal 3.90-5.20 [facility] Comment on above: Order Comment: Speci men Type: BLOOD SPECIMENOrdering Facility: [facility] Address: [address] [place] [address] Performed By: #### 5 8410-2 ####[facility] [id number] [place] [address] [place] WBC (Bld) [#/Vol] 5.95 10*3/uL Normal 3.70-11.00 [facility] Comment on above: Order Comment: Speci men Type: BLOOD SPECIMENOrdering Facility: [facility] Address: [address] [place] [address] Performed By: #### 5 8410-2 ####[facility] [id number] [place] [address] [place] CNOVon 03-19-2025 CNOV Normal [facility] metabolic 2000 panelon 03-19-2025 Albumin [Mass/Vol] 3.9 g/dL 3.9 - 4.9 g/dL [facility] ALP [Catalytic activity/Vol] 77 U/L 34 - 123 U/L [facility] ALT [Catalytic activity/Vol] 15 U/L 7 - 38 U/L [facility] Anion gap [Moles/Vol] 11 mmol/L 8 - 15 mmol/L [facility] AST [Catalytic activity/Vol] 22 U/L 13 - 35 U/L [facility] Bilirubin [Mass/Vol] 0.7 mg/dL 0.2 - 1 .3 mg/dL [facility] Calcium [Mass/Vol] 9.4 mg/dL 8.5 - 10. 2 mg/dL [facility] Chloride [Moles/Vol] 103 mmol/L 98 - 10 7 mmol/L [facility] CO2 [Moles/Vol] 26 mmol/L 22 - 30 mmol/L [facility] Creatinine [Mass/Vol] 0.76 mg/dL 0.58 - 0.96 mg/dL [facility] GFR/1.73 sq M.predicted among non-blacks MDRD (S/P/Bld) [Vol rate/Area] 80 mL/min/{1.73_m2} - PINF [facility] Comment on above: Estimated Glomerular Filtration Rate [...] 133 mg/dL High 74 - 99 mg/dL [facility] Comment on above: The [place] Diab[employer] Association (ADA) provides guidance for [...] Standards of Medical Care in Diabetes 2016, [place] [employer] Association. Diabetes Care. 2016.39(Suppl 1). Interpretation and review of laboratory results Abnormal [facility] Potassium [Moles/Vol] 4.4 mmol/L 3.7 - 5.1 mmol/L [facility] Protein [Mass/Vol] 6.6 g/dL 6.3 - 8.0 g/dL [facility] Sodium [Moles/Vol] 140 mmol/L 136 - 144 mmol/L [facility] Urea nitrogen [Mass/Vol] 23 mg/dL High 7 - 21 mg/dL [facility] Albumin [Mass/Vol] 3.9 g/dL Normal 3.9-4.9 [facility] Comment on above: Order Comment: Speci men Type: BLOOD SPECIMENOrdering Facility: [facility] Address: [address] [place] [address] Performed By: #### 3 016-3, 34503-7 ####[facility] LABCLIA [id number] [place] [id number] [place] ALP [Catalytic activity/Vol] 77 U/L Normal 34-123 [facility] Comment on above: Order Comment: Speci men Type: BLOOD SPECIMENOrdering Facility: [facility] Address: [address] [place] [address] Performed By: #### 3 016-3, 52989-4 ####[facility] LABCLIA [id number] [place] [address] [place] ALT [Catalytic activity/Vol] 15 U/L Normal 7-38 [facility] Comment on above: Order Comment: Speci men Type: BLOOD SPECIMENOrdering Facility: [facility] Address: [address] [place] [address] Performed By: #### 3 016-3, 97474-8 ####[facility] LABIA [id number] [place] [id number] [place] Anion gap [Moles/Vol] 11 mmol/L Normal 8-15 [facility] Comment on above: Order Comment: Speci men Type: BLOOD SPECIMENOrdering Facility: [facility] Address: [address] [place] [address] Performed By: #### 3 016-3, 55841-3 ####[facility] LABCLIA [id number] [place] [id number] [place] AST [Catalytic activity/Vol] 22 U/L Normal 13-35 [facility] Comment on above: Order Comment: Speci men Type: BLOOD SPECIMENOrdering Facility: [facility] Address: [address] [place] [address] Performed By: #### 3 016-3, ####[facility] LABCLIA [id number] [place] [address] [place] Bilirubin [Mass/Vol] 0.7 mg/dL Normal 0.2-1.3 [facility] Comment on above: Order Comment: Speci men Type: BLOOD SPECIMENOrdering Facility: [facility] Address: [address] [place] [address] Performed By: #### 3 016-3, ####[facility] LABCLIA [id number] [place] [address] [place] Calcium [Mass/Vol] 9.4 mg/dL Normal 8.5-10.2 [facility] Comment on above: Order Comment: Speci men Type: BLOOD SPECIMENOrdering Facility: [facility] Address: [address] [place] [address] Performed By: #### 3 016-3, ####[facility] LABCLIA [id number] [place] [address] [place] Chloride [Moles/Vol] 103 mmol/L Normal 98-107 [facility] Comment on above: Order Comment: Speci men Type: BLOOD SPECIMENOrdering Facility: [facility] Address: [address] [place] [address] Performed By: #### 3 016-3, 48361-7 ####[facility] LABCLIA [id number] [place] [id number] [place] CO2 [Moles/Vol] 26 mmol/L Normal 22-30 [facility] Comment on above: Order Comment: Speci men Type: BLOOD SPECIMENOrdering Facility: [facility] Address: [address] [place] [address] Performed By: #### 3 016-3, 21650-5 ####[facility] LABIA [id number] [place] [id number] [place] Creatinine [Mass/Vol] 0.76 mg/dL Normal 0.58-0.96 [facility] Comment on above: Order Comment: Ruma deluna Type: BLOOD SPECIMENOrdering Facility: [facility] Address: [address] [place] [address] Performed By: #### 3 016-3, ####[facility] LABIA [id number] [place] [address] [place] eGFRcr SerPlBld CKD-EPI 2020 80 mL/min/1.73m??? Normal >=60 [facility] Comment on above: Order Comment: [place] Type: BLOOD SPECIMENOrdering Facility: [facility] Address: [address] [place] [address] Result Comment: Judith mated Glomerular Filtration Rate [...] actual GFR. Performed By: #### 3 016-3, 60110-1 ####[facility] LABIA [id number] [place] [id number] [place] Glucose [Mass/Vol] 133 mg/dL High 74-99 [facility] Comment on above: Order Comment: Ruma [place] Type: BLOOD SPECIMENOrdering Facility: [facility] Address: [address] [place] [address] Result Comment: The [place] Diabetes Association (ADA) provides guidance for cutoff [...] Standards of Medical Care in Diabetes 2016, [place] [employer]. Diabetes Care. 2016.39(Suppl 1). Performed By: #### 3 , ####[facility] LABCLIA [id number] [address] [address] [place] Potassium [Moles/Vol] 4.4 mmol/L Normal 3.7-5.1 [facility] Comment on above: Order Comment: Speci men Type: BLOOD SPECIMENOrdering Facility: [facility] Address: [address] [place] [address] Performed By: #### 3 , ####[facility] LABCLIA [id number] [place] [id number] [place] Protein [Mass/Vol] 6.6 g/dL Normal 6.3-8.0 [facility] Comment on above: Order Comment: Ruma [place]una Type: BLOOD SPECIMENOrdering Facility: [facility] Address: [address] [place] [address] Performed By: #### 3 , ####[facility] LABCLIA [id number] [place] [id number] [place] Sodium [Moles/Vol] 140 mmol/L Normal 136-144 [facility] Comment on above: Order Comment: Speci men Type: BLOOD SPECIMENOrdering Facility: [facility] Address: [address] [place] [address] Performed By: #### 3 , ####[facility] LABCLIA [id number] [address] [address] [place] Urea nitrogen [Mass/Vol] 23 mg/dL High 7-21 [facility] Comment on above: Order Comment: Speci men Type: BLOOD SPECIMENOrdering Facility: [facility] Address: [address] [place] [address] Performed By: #### 3 016-3, 40285-8 ####[facility] LABCLIA [id number] [place] [address] [place] THYROID STIMULATING HORMONEo n 03-19-2025 TSH Qn 1.140 m[IU]/L [facility] TSH Qnon 03-19-2025 Interpretation and review of laboratory results Normal [facility] TSH SerPl-aCncon 03-19-2025 TSH Qn 1.140 m[IU]/L Normal 0.270-4.200 [facility] Comment on above: Order Comment: Speci men Type: BLOOD SPECIMENOrdering Facility: [facility] Address: [address] [place] [address] [place] [address] Performed By: #### 3 016-3, 25312-9 ####[facility] LABCLIA [id number] [place] [address] [place] Urinalysis complete panel (U )on 03-19-2025 Bacteria LM.HPF (Urine sed) [#/Area] Negative Negative /HPF [facility] Bilirubin Ql (U) Negative Negative [facility] Clarity (Unsp spec) Clear Clear [facility] Color (U) Yellow Yellow [facility] Epithelial cells LM.HPF (Urine sed) [#/Area] None Seen /HPF [facility] Glucose Test strip (U) [Mass/Vol] Negative Negative [facility] Hemoglobin Ql (U) Negative Negative [facility] Hyaline casts (Urine sed) [#/Area] 0 /[LPF] 0 /LPF [facility] Interpretation and review of laboratory results Abnormal [facility] Ketones Ql (U) Trace Abnormal Negative [facility] Leukocyte esterase Test strip Ql (U) 2+ Abnormal Negative [facility] Nitrite Ql (U) Negative Negative [facility] pH (U) 6.0 [pH] 5.0 - 8.[address] [facility] Protein (U) [Mass/Vol] Negative Negative [facility] RBC LM.HPF (Urine sed) [#/Area] 3-5 /HPF Abnormal 0-2 /HPF [facility] Specific gravity (U) [Rel density] 1.022 1.005 - 1.030 [facility] Urobilinogen Ql (U) 1.0 EU/dL 0.2-1.0 EU/dL [facility] WBC LM.HPF (Urine sed) [#/Area] 11-20 /HPF Abnormal 0-5 /HPF [facility] This test was developed and its performance characteristics determined by [facility] [place] ([facility]). It has not been cleared or approved by the FDA. -[facility] is regulated under CLIA as qualified to perform high-complexity testing. This test is used for clinical purposes. It should not be regarded as investigational or for research. [facility] Bacteria LM.HPF (Urine sed) [#/Area] Negative Normal Negative [facility] Comment on above: Order Comment: Speci men Type: URINE SPECIMENOrdering Facility: [facility] Address: [address] [place] [address] Performed By: #### 2 4356-8, 211-4 ####[facility] LABIA [id number] [place] [address] [place] Bilirubin Ql (U) Negative Normal Negative [facility] Comment on above: Order Comment: Speci men Type: URINE SPECIMENOrdering Facility: [facility] Address: [address] [place] [address] Performed By: #### 2 4356-8, 691-4 ####[facility] LABCLIA [id number] [place] [address] [place] Clarity (Unsp spec) Clear Normal Clear [facility] Comment on above: Order Comment: Speci men Type: URINE SPECIMENOrdering Facility: [facility] Address: [address] [place] [address] Performed By: #### 2 4356-8, 416-4 ####[facility] LABCLIA [id number] [address] [place] [address] [place] Color (U) Yellow Normal Yellow [facility] Comment on above: Order Comment: Speci men Type: URINE SPECIMENOrdering Facility: [facility] Address: [address] [place] [address] Performed By: #### 2 4356-8, 630-4 ####[facility] LABCLIA [id number] [address], [address] [place] Epithelial cells LM.HPF (Urine sed) [#/Area] None Seen Normal [facility] Comment on above: Order Comment: Speci men Type: URINE SPECIMENOrdering Facility: [facility] Address: [address] [place] [address] Performed By: #### 2 4356-8, 630-4 ####[facility] LABCLIA [id number] [address], [address] [place] Glucose Test strip (U) [Mass/Vol] Negative Normal Negative [facility] Comment on above: Order Comment: Speci men Type: URINE SPECIMENOrdering Facility: [facility] Address: [address] [place] [address] Performed By: #### 2 4356-8, 630-4 ####[facility] LABCLIA [id number] [address], [address] [place] Hemoglobin Ql (U) Negative Normal Negative [facility] Comment on above: Order Comment: Speci men Type: URINE SPECIMENOrdering Facility: [facility] Address: [address] [place] [address] Performed By: #### 2 4356-8, 630-4 ####[facility] LABCLIA [id number] [address], [facility] Hyaline casts (Urine sed) [#/Area] 0 /[LPF] Normal 0 /LPF [facility] Comment on above: Order Comment: Speci men Type: URINE SPECIMENOrdering Facility: [facility] Address: [address] [place] [address] Performed By: #### 2 4356-8, 630-4 ####[facility] LABCLIA [id number] [address] [place] [address] [place] Ketones Ql (U) Trace Abnormal Negative [facility] Comment on above: Order Comment: Speci men Type: URINE SPECIMENOrdering Facility: [facility] Address: [address] [place] [address] Performed By: #### 2 4356-8, 630-4 ####[facility] LABCLIA [id number] [address], [facility] [place] [facility] [place] Leukocyte esterase Test strip Ql (U) 2+ Abnormal Negative [facility] Comment on above: Order Comment: Speci men Type: URINE SPECIMENOrdering Facility: [facility] Address: [address] [place] [address] Performed By: #### 2 4356-8, 630-4 ####[facility] LABCLIA [id number] [address], [facility] [place] Nitrite Ql (U) Negative Normal Negative [facility] Comment on above: Order Comment: Speci men Type: URINE SPECIMENOrdering Facility: [facility] Address: [address] [place] [address] Performed By: #### 2 4356-8, 630-4 ####[facility] LABCLIA [id number] [address], [facility] [place] pH (U) 6.0 [pH] Normal 5.0-8.0 [facility] Comment on above: Order Comment: Speci men Type: URINE SPECIMENOrdering Facility: [facility] Address: [address] [place] [address] Performed By: #### 2 4356-8, 630-4 ####[facility] LABCLIA [id number] [address] [place] [address] [place] Protein (U) [Mass/Vol] Negative Normal Negative Cl [facility] Comment on above: Order Comment: Speci men Type: URINE SPECIMENOrdering Facility: [facility] Address: [address] [place] [address] Performed By: #### 2 4356-8, 630-4 ####[facility] LABIA [id number] [place] [address] [place] RBC LM.HPF (Urine sed) [#/Area] 3-5 /HPF Abnormal 0-2 /HPF [facility] Comment on above: Order Comment: Speci men Type: URINE SPECIMENOrdering Facility: [facility] Address: [address] [place] [address] Performed By: #### 2 4356-8, 630-4 ####[facility] LABIA [id number] [place] [address] [place] Specific gravity (U) [Rel density] 1.022 Normal 1.005-1.030 [facility] Comment on above: Order Comment: Speci men Type: URINE SPECIMENOrdering Facility: [facility] Address: [address] [place] [address] Performed By: #### 2 4356-8, 630-4 ####[facility] LABIA [id number] [address] [place] Urobilinogen Ql (U) 1.0 EU/dL Normal 0.2-1.0 EU/dL [facility] Comment on above: Order Comment: Speci men Type: URINE SPECIMENOrdering Facility: [facility] Address: [address] [place] [address] Performed By: #### 2 4356-8, 630-4 ####[facility] LABIA [id number] [place] [address] [place] WBC LM.HPF (Urine sed) [#/Area] 11-20 /HPF Abnormal 0-5 /HPF [facility] Comment on above: Order Comment: Speci men Type: URINE SPECIMENOrdering Facility: [facility] Address: [address] [place] [address] Performed By: #### 2 4356-8, 630-4 ####[facility] LABCLIA [id number] [address] [place] [id number] [place] CNPNon 03-12-2025 CNPN Normal [facility] CNPTOUTREACHon 03-07-2025 CNPTOUTREACH Normal [facility] CNPNon 02-28-2025 CNPN Normal [facility] CNOVon 02-06-2025 CNOV Normal [facility] CNPNon 01-30-2025 CNPN Normal [facility] CNOVon 01-29-2025 CNOV Normal [facility] Anion gap in Serum or Plasma Ordered By: Mark Leong on 01-25-2025 Anion gap [Moles/Vol] 13 mmol/L - [facility] BUN/creatinine ratioOrdered By: Mark Leong on 01-25-2025 Urea nitrogen/Creatinine [Mass ratio] 21.8 mg/mg High - [facility] Basic Metabolic Profile (BMP )on 01-25-2025 BUN/CRE 21.8 RATIO High - [facility] Comment on above: Performed By: #### L 500.2500 ####[facility] [address] [place], [address] Calcium [Mass/Vol] 9.1 mg/dL Normal 7.6-11.0 [facility] Comment on above: Performed By: #### L 500.2500 ####[facility] [address] [place], [address] Chloride [Moles/Vol] 97 mmol/L Low 98-108 [facility] Comment on above: Performed By: #### L 500.2500 ####[facility] [address] [place], [address] CO2 [Moles/Vol] 23.3 mmol/L Normal 21.0-32.0 [facility] Comment on above: Performed By: #### L 500.2500 ####[facility] [address] [place], [address] Creatinine [Mass/Vol] 0.95 mg/dL Normal 0.70-1.20 [facility] Comment on above: Performed By: #### L 500.2500 ####[facility] [address] [place], [address] GAP 13 Normal 5-15 [facility] Comment on above: Performed By: #### L 500.2500 ####[facility] [address] [place], [address] GFR/1.73 sq M.predicted among non-blacks MDRD (S/P/Bld) [Vol rate/Area] 61 mL/min/{1.73_m2} Normal >60 [facility] Comment on above: Result Comment: mL/m in/1.73m2 CKD-EPI Creatinine Equation (2020) Performed By: #### L 500.2500 ####[facility] [address] [place], [address] Glucose [Mass/Vol] 295 mg/dL High 70-99 [facility] Comment on above: Performed By: #### L 500.2500 ####[facility] [address] [place], [address] Potassium [Moles/Vol] 4.3 mmol/L Normal 3.3-5.1 [facility] Comment on above: Performed By: #### L 500.2500 ####[facility] [address] [place], [address] Sodium [Moles/Vol] 132 mmol/L Low 133-145 [facility] Comment on above: Performed By: #### L 500.2500 ####[facility] [address] [place], [address] Urea nitrogen [Mass/Vol] 21 mg/dL High 4-19 [facility] Comment on above: Performed By: #### L 500.2500 ####[facility] [address] [place], [address] BUN Normal 4-19 [facility] Comment on above: Result Comment: DR. MARK LEONG ONLY NEEDED 1, THIS WAS A DUPLICATE PERABIGAIL IN ED. 01-25-25 @ 2154. LMARTELL Performed By: #### L 500.2500 ####[facility] [address] [place], [address] BUN/CRE Normal 10-20 [facility] Comment on above: Result Comment: DR. MARK LEONG ONLY NEEDED 1, THIS WAS A DUPLICATE PERABIGAIL IN ED. 01-25-25 @ 2154. LMARTELL Performed By: #### L 500.2500 ####[facility] [address] [place], [address] Calcium Normal 7.6-11.0 [facility] Comment on above: Result Comment: DR. MARK LEONG ONLY NEEDED 1, THIS WAS A DUPLICATE PERABIGAIL IN ED. 01-25-25 @ 2154. LMARTELL Performed By: #### L 500.2500 ####[facility] [address] [place], [address] CL Normal 98-108 [facility] Comment on above: Result Comment: DR. MARK LEONG ONLY NEEDED 1, THIS WAS A DUPLICATE PERABIGAIL IN ED. 01-25-25 @ 2154. LMARTELL Performed By: #### L 500.2500 ####[facility] [address] [place], [address] CO2 Normal 21.0-32.0 [facility] Comment on above: Result Comment: DR. MARK LEONG ONLY NEEDED 1, THIS WAS A DUPLICATE PERABIGAIL IN ED. 01-25-25 @ 2154. LMARTELL Performed By: #### L 500.2500 ####[facility] [address] [place], [address] CREAT,SERUM Normal 0.70-1.20 [facility] Comment on above: Result Comment: DR. MARK LEONG ONLY NEEDED 1, THIS WAS A DUPLICATE PERABIGAIL IN ED. 01-25-25 @ 5. LMARTELL Performed By: #### L 500.2500 ####[facility] [address] [place], [address] eGFR Normal >60 [facility] Comment on above: Result Comment: DR. MARK LEONG ONLY NEEDED 1, THIS WAS A DUPLICATE PERABIGAIL IN ED. 01-25-25 @ 2154. LMARTELL Performed By: #### L 500.2500 ####[facility] [address] [place], [address] GAP Normal 5-15 [facility] Comment on above: Result Comment: DR. MARK LEONG ONLY NEEDED 1, THIS WAS A DUPLICATE PERABIGAIL IN ED. 01-25-25 @ 5. LMARTELL Performed By: #### L 500.2500 ####[facility] [address] [place], [address] GLU Normal 70-99 [facility] Comment on above: Result Comment: DR. MARK LEONG ONLY NEEDED 1, THIS WAS A DUPLICATE PERABIGAIL IN ED. 01-25-25 @ 5. LMARTELL Performed By: #### L 500.2500 ####[facility] [address] [place], [address] Potassium Normal 3.3-5.1 [facility] Comment on above: Result Comment: DR. MARK LEONG ONLY NEEDED 1, THIS WAS A DUPLICATE PERABIGAIL IN ED. 01-25-25 @ 5. LMARTELL Performed By: #### L 500.2500 ####[facility] [address] [place], [address] Basic Metabolic Profile (BMP) Normal 133-145 [facility] Comment on above: Result Comment: DR. MARK LEONG ONLY NEEDED 1, THIS WAS A DUPLICATE PERABIGAIL IN ED. 01-25-25 @ 2155. ARTELL Performed By: #### L 500.2500 ####[facility] [address] [place], [address] Bedside Glucoseon 01-25-2025 FINGERSTICK GLU 280 mg/dL High [facility]106 [facility] Comment on above: Result Comment: MERCEDES GEMENT OF PATIENT CARE PER NURSING PROTOCOL Performed By: #### L 501.080 ####[facility] [address] [place], [address] FINGERSTICK GLU 285 mg/dL [address] Comment on above: Result Comment: MERCEDES GEMENT OF PATIENT CARE PER NURSING PROTOCOL Performed By: #### L 501.080 ####[facility] [address] [place], [address] Carbon dioxide, total [Moles /volume] in Central venous bloodOrdered By: Mark Leong on 01-25-2025 CO2 [Moles/Vol] 23.3 mmol/L 21.0-32.0 [facility] Chloride assayOrdered By: Amanda Leong on 01-25-2025 Chloride [Moles/Vol] 97 mmol/L Low 98-108 [facility] Emergency Department Summary on 01-25-2025 Emergency Department Summary Normal [facility] Glomerular filtration rate ( GFR) estimation/1.73 sq m using serum, plasma, or whole bOrdered By: Mark Leong on 01-25-2025 GFR/1.73 sq M.predicted among non-blacks MDRD (S/P/Bld) [Vol rate/Area] 61 mL/min/{1.73_m2} >60 [facility] Comment on above: mL/min/1.73m2 CKD-EP I Creatinine Equation (2020) [facility] deOrdered By: Mark Leong on 01-25-2025 Glucose [Mass/Vol] 280 mg/dL High 74-106 [facility] Comment on above: MANAGEMENT OF PATIEN T CARE PER NURSING PROTOCOL Potassium measurement (mass/ volume)Ordered By: Mark Leong on 01-25-2025 Potassium (Unsp spec) [Mass/Vol] 4.3 mmol/L 3.3-5.1 [facility] Serum creatinine measurement (mass/volume)Ordered By: Mark Leong on 01-25-2025 Creatinine [Mass/Vol] 0.95 mg/dL 0.70-1.20 [facility] Serum glucose measurement (m ass/volume)Ordered By: Mark Leong on 01-25-2025 Glucose [Mass/Vol] 295 mg/dL High 70-99 [facility] Serum or plasma calcium zora urement (mass/volume)Ordered By: Markniranjan Leong on 01-25-2025 Calcium [Mass/Vol] 9.1 mg/dL 7.6-11.0 [facility] Serum or plasma urea nitroge n measurement (mass/volume)Ordered By: Mark Leong on 01-25-2025 Urea nitrogen [Mass/Vol] 21 mg/dL High 4-19 [facility] Sodium levelOrdered By: Mark Leong on 01-25-2025 Sodium [Moles/Vol] 132 mmol/L Low 133-145 [facility] CNOVon 01-15-2025 CNOV Normal [facility] Cardiology Visit Reporton Cardiology Visit Report Normal [facility] 25(OH)D3 SerPl-mCncon 2024 25-hydroxyvitamin D3 [Mass/Vol] 75.3 ng/mL Normal 31.0-80.0 [facility] Comment on above: Order Comment: Speci men Type: BLOOD SPECIMENOrdering Facility: [facility] Address: [address] [place] [address] Performed By: #### 1 989-3 ####[facility] LABCLIA [id number] [place] [address] [place] HbA1c (Bld)on 01-08-2025 Average glucose Estimated from glycated hemoglobin (Bld) [Mass/Vol] 151 mg/dL Normal [facility] Comment on above: Order Comment: Speci men Type: BLOOD SPECIMENOrdering Facility: [facility] Address: [address] [place] [address] Result Comment: eAG: (Estimated average glucose) is a calculated value from HgbA1c and is industrial sales representative of the average blood glucose level in the last 2-3 month period. Performed By: #### 5 5454-3 ####[facility] LABCLIA [id number] [place] [address] [place] HbA1c (Bld) [Mass fraction] 6.9 % High 4.3-5.6 [facility] Comment on above: Order Comment: Marilui mikie Type: BLOOD SPECIMENOrdering Facility: [facility] Address: [address] [place] [address] Result Comment: Nydia ican Diabetes Association guidelines indicate that patients with HgbA1c in the range 5.7-6.4% are at increased risk for development of diabetes, and intervention by lifestyle modification may be beneficial. HgbA1c greater or equal to 6.5% is considered diagnostic of diabetes. Performed By: #### 5 5454-3 ####[facility] LABCLIA [id number] [address] [place] 12 Lead EKGon 01-04-2025 12 Lead EKG Normal [facility] Absolute lymphocyte countOrd ered By: Amber Martino on 01-04-2025 Lymphocytes Auto (Unsp spec) [#/Vol] 1.40 10*3/uL 0.83-4.51 [facility] Absolute neutrophil countOrd ered By: Amber Martino on 01-04-2025 Neutrophils (Bld) [#/Vol] 3.9 10*3/uL 2.0-7.7 [facility] Anion gap in Serum or Plasma Ordered By: Amber Martino on 01-04-2025 Anion gap [Moles/Vol] 11 mmol/L 5-15 [facility] Automated lymphocyte count a s percentage of total leukocytesOrdered By: Amber Martino on 01-04-2025 Lymphocytes/100 WBC Auto (Unsp spec) 22.3 % -41 [facility] BUN/creatinine ratioOrdered By: Amber Martino on 01-04-2025 Urea nitrogen/Creatinine [Mass ratio] 24.4 mg/mg High 05-06 [facility] Basic Metabolic Profile (BMP )on 01-04-2025 BUN/CRE 24.4 RATIO High 05-06 [facility] Comment on above: Performed By: #### L 500.2500, L501.4021, L100.0100 ####[facility] [address] [place], [address] Calcium [Mass/Vol] 9.2 mg/dL Normal 7.6-11.0 [facility] Comment on above: Performed By: #### L 500.2500, L501.4021, L100.0100 ####[facility] [address] [place], [address] Chloride [Moles/Vol] 103 mmol/L Normal 98-108 [facility] Comment on above: Performed By: #### L 500.2500, L501.4021, L100.0100 ####[facility] [address] [place], [address] CO2 [Moles/Vol] 25.6 mmol/L Normal 21.0-32.0 [facility] Comment on above: Performed By: #### L 500.2500, L501.4021, L100.0100 ####[facility] [address] [place], [address] Creatinine [Mass/Vol] 0.93 mg/dL Normal 0.70-1.20 [facility] Comment on above: Performed By: #### L 500.2500, L501.4021, L100.0100 ####[facility] [address] [place], [address] GAP 11 Normal 5-15 [facility] Comment on above: Performed By: #### L 500.2500, L501.4021, L100.0100 ####[facility] [address] [place], [address] GFR/1.73 sq M.predicted among non-blacks MDRD (S/P/Bld) [Vol rate/Area] 63 mL/min/{1.73_m2} Normal >60 [facility] Comment on above: Result Comment: mL/m in/1.73m2 CKD-EPI Creatinine Equation (2020) Performed By: #### L 500.2500, L501.4021, L100.0100 ####[facility] [address] [place], [address] Glucose [Mass/Vol] 93 mg/dL Normal 70-99 [facility] Comment on above: Performed By: #### L 500.2500, L501.4021, L100.0100 ####[facility] [address] [place], [address] Potassium [Moles/Vol] 4.0 mmol/L Normal 3.3-5.1 [facility] Comment on above: Performed By: #### L 500.2500, L501.4021, L100.0100 ####[facility] [address] [place], [address] Sodium [Moles/Vol] 140 mmol/L Normal 133-145 [facility] Comment on above: Performed By: #### L 500.2500, L501.4021, L100.0100 ####[facility] [address] [place], [address] Urea nitrogen [Mass/Vol] 23 mg/dL High 4-19 [facility] Comment on above: Performed By: #### L 500.2500, L501.4021, L100.0100 ####[facility] [address] [place], [address] Basophil percentageOrdered B y: Amber Martino on 01-04-2025 Basophils/100 WBC (Bld) 0.5 % 0-1 [facility] Bedside Glucoseon 01-04-2024 FINGERSTICK GLU 114 mg/dL High 74-106 [facility] Comment on above: Result Comment: MERCEDES SUBRAMANIAN OF PATIENT CARE PER NURSING PROTOCOL Performed By: #### L 501.080 ####[facility] [address] [place], [address] CBC W/Diff, Automatedon 12-17 Absolute Lymph 1.40 X10 3/uL Normal 0.83-4.51 [facility] Comment on above: Performed By: #### L 500.2500, L501.4021, L100.0100 ####[facility] [address] [place], [address] Absolute Neut 3.9 X10 3/uL Normal 2.0-7.7 [facility] Comment on above: Performed By: #### L 500.2500, L501.4021, L100.0100 ####[facility] [address] [place], [address] Basophils/100 WBC (Bld) 0.5 % Normal 0-1 [facility] Comment on above: Performed By: #### L 500.2500, L501.4021, L100.0100 ####[facility] [address] [place], [address] Eosinophils/100 WBC (Bld) 5.7 % High 0-5 [facility] Comment on above: Performed By: #### L 500.2500, L501.4021, L100.0100 ####[facility] [address] [place], [address] Erythrocyte distribution width (RBC) [Ratio] 12.3 % Normal 11.6-14.6 [facility] Comment on above: Performed By: #### L 500.2500, L501.4021, L100.0100 ####[facility] [address] [place], [address] Hematocrit (Bld) [Volume fraction] 36.1 % Low 37-47 [facility] Comment on above: Performed By: #### L 500.2500, L501.4021, L100.0100 ####[facility] [address] [place], [address] Hemoglobin (Bld) [Mass/Vol] 12.1 g/dL Normal 12.0-15.0 [facility] Comment on above: Performed By: #### L 500.2500, L501.4021, L100.0100 ####[facility] [address] [place], [address] IG% 0.200 Normal 0.0-0.9 [facility] Comment on above: Result Comment: IG% - Immature Granulocytes (promyelocytes, myelocytes andmetamyelocytes) > 1% indicates that a LEFT SHIFT is Present. Performed By: #### L 500.2500, L501.4021, L100.0100 ####[facility] [address] [place], [address] Lymphocytes/100 WBC (Bld) 22.3 % Normal 19-41 [facility] Comment on above: Performed By: #### L 500.2500, L501.4021, L100.0100 ####[facility] [address] [place], [address] MCH (RBC) [Entitic mass] 29.7 pg Normal 27.0-32.0 [facility] Comment on above: Performed By: #### L 500.2500, L501.4021, L100.0100 ####[facility] [address] [place], [address] MCHC (RBC) [Mass/Vol] 33.5 g/dL Normal 32-36 [facility] Comment on above: Performed By: #### L 500.2500, L501.4021, L100.0100 ####[facility] [address] [place], [address] MCV (RBC) [Entitic vol] 88.7 fL Normal 81-99 [facility] Comment on above: Performed By: #### L 500.2500, L501.4021, L100.0100 ####[facility] [address] [place], [address] Monocytes/100 WBC (Bld) 9.7 % Normal 0-10 [facility] Comment on above: Performed By: #### L 500.2500, L501.4021, L100.0100 ####[facility] [address] [place], [address] Neutrophils/100 WBC (Bld) 61.6 % Normal 47-70 [facility] Comment on above: Performed By: #### L 500.2500, L501.4021, L100.0100 ####[facility] [address] [place], [address] Nucleated RBC (Bld) [#/Vol] 0 10*3/uL Normal 0-5 [facility] Comment on above: Performed By: #### L 500.2500, L501.4021, L100.0100 ####[facility] [address] [place], [address] Platelet mean volume (Bld) [Entitic vol] 12.2 fL High 6.2-12.0 [facility] Comment on above: Performed By: #### L 500.2500, L501.4021, L100.0100 ####[facility] [address] [place], [address] Platelets (Bld) [#/Vol] 193 10*3/uL Normal 150-450 [facility] Comment on above: Performed By: #### L 500.2500, L501.4021, L100.0100 ####[facility] [address] [place], [address] RBC (Bld) [#/Vol] 4.07 10*6/uL Low 4.2-5.4 [facility] Comment on above: Performed By: #### L 500.2500, L501.4021, L100.0100 ####[facility] [address] [place], [address] RDW SD 40.1 fl Normal 35.1-43.9 [facility] Comment on above: Performed By: #### L 500.2500, L501.4021, L100.0100 ####[facility] [address] [place], [address] WBC (Bld) [#/Vol] 6.3 10*3/uL Normal 4.4-11.0 [facility] Comment on above: Performed By: #### L 500.2500, L501.4021, L100.0100 ####[facility] [address] [place], [address] Carbon dioxide, total [Moles /volume] in Central venous bloodOrdered By: Amber Martino on 01-04-2025 CO2 [Moles/Vol] 25.6 mmol/L 21.0-32.0 [facility] Chest PA and Lateralon 01-04 Chest PA and Lateral Normal [facility] Chloride assayOrdered By: Ludy Martino on 01-04-2025 Chloride [Moles/Vol] 103 mmol/L 98-108 [facility] Emergency Department Summary on 01-04-2025 Emergency Department Summary Normal [facility] Eosinophil percentageOrdered By: Amber Martino on 01-04-2025 Eosinophils/100 WBC (Bld) 5.7 % High 0-5 [facility] Erythrocyte distribution wid th ratioOrdered By: Amber Martino on 01-04-2025 Erythrocyte distribution width (RBC) [Ratio] 12.3 % 11.6-14.6 [facility] Erythrocyte distribution wid th standard deviationOrdered By: Amber Martino on 01-04-2025 Erythrocyte distribution width (RBC) [Ratio] 40.1 fl 35.1-43.9 [facility] Glomerular filtration rate ( GFR) estimation/1.73 sq m using serum, plasma, or whole bOrdered By: Amber Martino on 01-04-2025 GFR/1.73 sq M.predicted among non-blacks MDRD (S/P/Bld) [Vol rate/Area] 63 mL/min/{1.73_m2} >60 [facility] Comment on above: mL/min/1.73m2 CKD-EP I Creatinine Equation (2020) [facility] deOrdered By: Zay Juan on 01-04-2025 Glucose [Mass/Vol] 114 mg/dL High 74-106 [facility] Comment on above: MANAGEMENT OF PATIEN T CARE PER NURSING PROTOCOL Hematocrit Auto (Bld) [Volum e fraction]Ordered By: Amber Martino on 01-04-2025 Hematocrit (Bld) [Volume fraction] 36.1 % Low 37-47 [facility] Hemoglobin measurementOrdere d By: Amber Martino on 01-04-2025 Hemoglobin (Bld) [Mass/Vol] 12.1 g/dL 12.0-15.0 [facility] Immature granulocytes/100 WB C Auto (Bld)Ordered By: Amber Martino on 01-04-2025 Immature granulocytes/100 WBC (Bld) 0.200 % 0.0-0.9 [facility] Comment on above: IG% - Immature Granu locytes (promyelocytes, myelocytes and metamyelocytes) > 1% indicates that a LEFT SHIFT is Present. L499.0042on 01-04-2025 Trop T High Sen 13 ng/L Normal <=14 [facility] Comment on above: Performed By: #### L 499.0042 ####[facility] [id number] [place], [place], [address] L499.0043on 01-04-2025 Trop T High Sen Normal <=14 [facility] Comment on above: Result Comment: Canc elled via OM: Ordered Performed By: #### L 499.0043 ####[facility] [id number] [place], [address] [id number] 01-04-2025 Trop T High Sen 15 ng/L High <=14 [facility] Comment on above: Performed By: #### L 500.2500, L501.4021, L100.0100 ####[facility] [address] [place], [address] MCV (mean corpuscular volume ) determinationOrdered By: Amber Martino on 01-04-2025 MCV (RBC) [Entitic vol] 88.7 fL 81-99 [facility] Mean corpuscular hemoglobin (MCH) determinationOrdered By: Amber Martino on 01-04-2025 MCH (RBC) [Entitic mass] 29.7 pg 27.0-32.0 [facility] Mean corpuscular hemoglobin concentration (MCHC) determinationOrdered By: Amber Martino on 01-04-2025 MCHC (RBC) [Mass/Vol] 33.5 g/dL 32-36 [facility] Mean platelet volume determi nationOrdered By: Amber Martino on 01-04-2025 Platelet mean volume (Bld) [Entitic vol] 12.2 fL High 6.2-12.0 [facility] Monocyte percentageOrdered B y: Amber Martino on 01-04-2025 Monocytes/100 WBC (Bld) 9.7 % 0-10 [facility] Neutrophil percentageOrdered By: Amber Martino on 01-04-2025 Neutrophils/100 WBC (Bld) 61.6 % 47-70 [facility] Nucleated red blood cell per centageOrdered By: Amber Martino on 01-04-2025 Nucleated RBC/100 WBC (Bld) [Ratio] 0 % 0-5 [facility] Platelet countOrdered By: Ludy Martino on 01-04-2025 Platelets (Bld) [#/Vol] 193 10*3/uL 150-450 [facility] Potassium measurement (mass/ volume)Ordered By: Amber Martino on 01-04-2025 Potassium (Unsp spec) [Mass/Vol] 4.0 mmol/L 3.3-5.1 [facility] RBC Auto (Bld) [#/Vol]Ordere d By: Amber Martino on 01-04-2025 RBC (Bld) [#/Vol] 4.07 10*6/uL Low 4.2-5.4 [facility] Serum creatinine measurement (mass/volume)Ordered By: Amber Martino on 01-04-2025 Creatinine [Mass/Vol] 0.93 mg/dL 0.70-1.20 [facility] Serum glucose measurement (m ass/volume)Ordered By: Amber Martino on 01-04-2025 Glucose [Mass/Vol] 93 mg/dL 70-99 [facility] Serum or plasma calcium zora urement (mass/volume)Ordered By: Amber Martino on 01-04-2025 Calcium [Mass/Vol] 9.2 mg/dL 7.6-11.0 [facility] Serum or plasma urea nitroge n measurement (mass/volume)Ordered By: Amber Martino on 01-04-2025 Urea nitrogen [Mass/Vol] 23 mg/dL High 4-19 [facility] Sodium levelOrdered By: Amber Martino on 01-04-2025 Sodium [Moles/Vol] 140 mmol/L 133-145 [facility] Troponin T.cardiac [Mass/vol ume] in Serum or Plasma by High sensitivity methodOrdered By: Amber Martino on 01-04-2025 Troponin T.cardiac High sensitivity method [Mass/Vol] 13 ng/L <14 [facility] Troponin T.cardiac High sensitivity method [Mass/Vol] 15 ng/L High <14 [facility] White blood cell (WBC) count Ordered By: Amber Martino on 01-04-2025 WBC (Bld) [#/Vol] 6.3 10*3/uL 4.4-11.0 [facility] Bedside Glucoseon 12-19-2024 FINGERSTICK GLU 227 mg/dL High 74-106 [facility] Comment on above: Result Comment: MERCEDES SUBRAMANIAN OF PATIENT CARE PER NURSING PROTOCOL Performed By: #### L 501.080 ####[facility] [address] [place], [place], [address] [facility] 12-19-2024 CNPN Normal [facility] Emergency Department Summary on 12-19-2024 Emergency Department Summary Normal [facility] deOrdered By: Abdulaziz Stratton on 12-19-2024 Glucose [Mass/Vol] 227 mg/dL High 74-106 [facility] Comment on above: MANAGEMENT OF PATIEN T CARE PER NURSING PROTOCOL [facility] 12-12-2024 CNPN Normal [facility] Absolute lymphocyte countOrd ered By: Serg Solis on 11-29-2024 Lymphocytes Auto (Unsp spec) [#/Vol] 1.09 10*3/uL 0.83-4.51 [facility] Absolute neutrophil countOrd ered By: Serg Solis on 11-29-2024 Neutrophils (Bld) [#/Vol] 3.4 10*3/uL 2.0-7.7 [facility] Anion gap in Serum or Plasma Ordered By: Serg Solis on 11-29-2024 Anion gap [Moles/Vol] 11 mmol/L 5- [facility] Automated lymphocyte count a s percentage of total leukocytesOrdered By: Serg Solis on 11-29-2024 Lymphocytes/100 WBC Auto (Unsp spec) 20.6 % 19-41 [facility] BUN/creatinine ratioOrdered By: Serg Solis on 11-29-2024 Urea nitrogen/Creatinine [Mass ratio] 21.6 mg/mg High 10-20 [facility] Basophil percentageOrdered B y: Serg Solis on 11-29-2024 Basophils/100 WBC (Bld) 0.8 % 0-1 [facility] Bedside Glucoseon 11-29-2024 FINGERSTICK GLU 265 mg/dL High 74-106 [facility] Comment on above: Result Comment: MERCEDES MARILYNN OF PATIENT CARE PER NURSING PROTOCOL Performed By: #### L 501.080 ####[facility] [address] [place], [address] FINGERSTICK GLU 275 mg/dL High 74-106 [facility] Comment on above: Result Comment: MERCEDES GEMENT OF PATIENT CARE PER NURSING PROTOCOL Performed By: #### L 501.080 ####[facility] [address] [place], [address] Beta-Hydroxbytyrateon 2024 BETA-HYDROXYBUT 1.0 mmol/L Normal 0.0-0.3 [facility] Comment on above: Performed By: #### L 100.0100, L500.4050, L501.6901 ####[facility] [address] [place], [address] Beta-hydroxybutyrateOrdered By: Serg Solis on 11-29-2024 Beta hydroxybutyrate [Mass/Vol] 1.0 mmol/L 0.0-0.3 [facility] Bilirubin Test strip Ql (U)O rdered By: Serg Solis on 11-29-2024 Bilirubin Ql (U) Negative Negative [facility] Bilirubin, totalOrdered By: Serg Solis on 11-29-2024 Bilirubin [Mass/Vol] 0.72 mg/dL 0.00-1.30 [facility] CBC W/Diff, Automatedon 11-15 Absolute Lymph 1.09 X10 3/uL Normal 0.83-4.51 [facility] Comment on above: Performed By: #### L 100.0100, L500.4050, L501.6901 ####[facility] [address] [place], [address] Absolute Neut 3.4 X10 3/uL Normal 2.0-7.7 [facility] Comment on above: Performed By: #### L 100.0100, L500.4050, L501.6901 ####[facility] [address] [place], [address] Basophils/100 WBC (Bld) 0.8 % Normal 0-1 [facility] Comment on above: Performed By: #### L 100.0100, L500.4050, L501.6901 ####[facility] [address] [place], [address] Eosinophils/100 WBC (Bld) 6.6 % High 0-5 [facility] Comment on above: Performed By: #### L 100.0100, L500.4050, L501.6901 ####[facility] [address] [place], [address] Erythrocyte distribution width (RBC) [Ratio] 12.6 % Normal 11.6-14.6 [facility] Comment on above: Performed By: #### L 100.0100, L500.4050, L501.6901 ####[facility] [address] [place], [address] Hematocrit (Bld) [Volume fraction] 38.2 % Normal 37-47 [facility] Comment on above: Performed By: #### L 100.0100, L500.4050, L501.6901 ####[facility] [address] [place], [address] Hemoglobin (Bld) [Mass/Vol] 12.6 g/dL Normal 12.0-15.0 [facility] Comment on above: Performed By: #### L 100.0100, L500.4050, L501.6901 ####[facility] [address] [place], [address] IG% 0.000 Normal 0.0-0.9 [facility] Comment on above: Result Comment: IG% - Immature Granulocytes (promyelocytes, myelocytes andmetamyelocytes) > 1% indicates that a LEFT SHIFT is Present. Performed By: #### L 100.0100, L500.4050, L501.6901 ####[facility] [address] [place], [address] Lymphocytes/100 WBC (Bld) 20.6 % Normal 19-41 [facility] Comment on above: Performed By: #### L 100.0100, L500.4050, L501.6901 ####[facility] [address] [place], [address] MCH (RBC) [Entitic mass] 30.0 pg Normal 27.0-32.0 [facility] Comment on above: Performed By: #### L 100.0100, L500.4050, L501.6901 ####[facility] [address] [place], [address] MCHC (RBC) [Mass/Vol] 33.0 g/dL Normal 32-36 [facility] Comment on above: Performed By: #### L 100.0100, L500.4050, L501.6901 ####[facility] [address] [place], [address] MCV (RBC) [Entitic vol] 91.0 fL Normal 81-99 [facility] Comment on above: Performed By: #### L 100.0100, L500.4050, L501.6901 ####[facility] [address] [place], [address] Monocytes/100 WBC (Bld) 7.2 % Normal 0-10 [facility] Comment on above: Performed By: #### L 100.0100, L500.4050, L501.6901 ####[facility] [address] [place], [address] Neutrophils/100 WBC (Bld) 64.8 % Normal 47-70 [facility] Comment on above: Performed By: #### L 100.0100, L500.4050, L501.6901 ####[facility] [address] [place], [address] Nucleated RBC (Bld) [#/Vol] 0 10*3/uL Normal 0-5 [facility] Comment on above: Performed By: #### L 100.0100, L500.4050, L501.6901 ####[facility] [address] [place], [address] Platelet mean volume (Bld) [Entitic vol] 12.1 fL High 6.2-12.0 [facility] Comment on above: Performed By: #### L 100.0100, L500.4050, L501.6901 ####[facility] [address] [place], [address] Platelets (Bld) [#/Vol] 153 10*3/uL Normal 150-450 [facility] Comment on above: Performed By: #### L 100.0100, L500.4050, L501.6901 ####[facility] [address] [place], [address] RBC (Bld) [#/Vol] 4.20 10*6/uL Normal 4.2-5.4 [facility] Comment on above: Performed By: #### L 100.0100, L500.4050, L501.6901 ####[facility] [address] [place], [address] RDW SD 41.7 fl Normal 35.1-43.9 [facility] Comment on above: Performed By: #### L 100.0100, L500.4050, L501.6901 ####[facility] [address] [place], [address] WBC (Bld) [#/Vol] 5.3 10*3/uL Normal 4.4-11.0 [facility] Comment on above: Performed By: #### L 100.0100, L500.4050, L501.6901 ####[facility] [address] [place], [address] Carbon dioxide, total [Moles /volume] in Central venous bloodOrdered By: Serg Solis on 11-29-2024 CO2 [Moles/Vol] 22.8 mmol/L 21.0-32.0 [facility] Chloride assayOrdered By: Abundio Solis on 11-29-2024 Chloride [Moles/Vol] 100 mmol/L 98-108 [facility] Comprehensive Metabolic Prof ilon 11-29-2024 Albumin [Mass/Vol] 3.8 g/dL Normal 3.4-4.8 [facility] Comment on above: Performed By: #### L 100.0100, L500.4050, L501.6901 ####[facility] [address] [place], [address] Albumin/Globulin [Mass ratio] 1.4 {ratio} Normal 0.9-2.4 [facility] Comment on above: Performed By: #### L 100.0100, L500.4050, L501.6901 ####[facility] [address] [place], [address] ALK PHOS 75 U/L Normal 35-104 [facility] Comment on above: Performed By: #### L 100.0100, L500.4050, L501.6901 ####[facility] [address] [place], [address] ALT [Catalytic activity/Vol] 15 U/L Normal <=34 [facility] Comment on above: Performed By: #### L 100.0100, L500.4050, L501.6901 ####[facility] [address] [place], [address] AST [Catalytic activity/Vol] 23 U/L Normal <=31 [facility] Comment on above: Performed By: #### L 100.0100, L500.4050, L501.6901 ####[facility] [address] [place], [address] Bilirubin [Mass/Vol] 0.72 mg/dL Normal 0.00-1.30 [facility] Comment on above: Performed By: #### L 100.0100, L500.4050, L501.6901 ####[facility] [address] [place], [address] BUN/CRE 21.6 RATIO High 10-20 [facility] Comment on above: Performed By: #### L 100.0100, L500.4050, L501.6901 ####[facility] [address] [place], [address] Calcium [Mass/Vol] 9.0 mg/dL Normal 7.6-11.0 [facility] Comment on above: Performed By: #### L 100.0100, L500.4050, L501.6901 ####[facility] [address] [place], [address] Chloride [Moles/Vol] 100 mmol/L Normal 98-108 [facility] Comment on above: Performed By: #### L 100.0100, L500.4050, L501.6901 ####[facility] [address] [place], [address] CO2 [Moles/Vol] 22.8 mmol/L Normal 21.0-32.0 [facility] Comment on above: Performed By: #### L 100.0100, L500.4050, L501.6901 ####[facility] [address] [place], [address] Creatinine [Mass/Vol] 0.82 mg/dL Normal 0.70-1.20 [facility] Comment on above: Performed By: #### L 100.0100, L500.4050, L501.6901 ####[facility] [address] [place], [address] ECRCL 81.15 ml/min Normal 50-250 [facility] Comment on above: Performed By: #### L 100.0100, L500.4050, L501.6901 ####[facility] [address] [place], [address] GAP 11 Normal 5-15 [facility] Comment on above: Performed By: #### L 100.0100, L500.4050, L501.6901 ####[facility] [address] [place], [address] GFR/1.73 sq M.predicted among non-blacks MDRD (S/P/Bld) [Vol rate/Area] 73 mL/min/{1.73_m2} Normal >60 [facility] Comment on above: Result Comment: mL/m in/1.73m2 CKD-EPI Creatinine Equation (2020) Performed By: #### L 100.0100, L500.4050, L501.6901 ####[facility] [address] [place], [address] Globulin (S) [Mass/Vol] 2.7 g/dL Normal 2.2-4.2 [facility] Comment on above: Performed By: #### L 100.0100, L500.4050, L501.6901 ####[facility] [address] [place], [address] Glucose [Mass/Vol] 286 mg/dL High 70-99 [facility] Comment on above: Performed By: #### L 100.0100, L500.4050, L501.6901 ####[facility] [address] [place], [address] Potassium [Moles/Vol] 4.2 mmol/L Normal 3.3-5.1 [facility] Comment on above: Performed By: #### L 100.0100, L500.4050, L501.6901 ####[facility] [address] [place], [address] Sodium [Moles/Vol] 135 mmol/L Normal 133-145 [facility] Comment on above: Performed By: #### L 100.0100, L500.4050, L501.6901 ####[facility] [address] [place], [address] T PROT 6.5 g/dL Normal 5.9-8.4 [facility] Comment on above: Performed By: #### L 100.0100, L500.4050, L501.6901 ####[facility] [address] [place], [address] Urea nitrogen [Mass/Vol] 18 mg/dL Normal 4-19 [facility] Comment on above: Performed By: #### L 100.0100, L500.4050, L501.6901 ####[facility] [address] [place], [address] Emergency Department Summary on 11-29-2024 Emergency Department Summary Normal [facility] Eosinophil percentageOrdered By: Serg Solis on 11-29-2024 Eosinophils/100 WBC (Bld) 6.6 % High 0-5 [facility] Erythrocyte distribution wid th ratioOrdered By: Serg Solis on 11-29-2024 Erythrocyte distribution width (RBC) [Ratio] 12.6 % 11.6-14.6 [facility] Erythrocyte distribution wid th standard deviationOrdered By: Serg Solis on 11-29-2024 Erythrocyte distribution width (RBC) [Ratio] 41.7 fl 35.1-43.9 [facility] Glomerular filtration rate ( GFR) estimation/1.73 sq m using serum, plasma, or whole bOrdered By: Serg Solis on 11-29-2024 GFR/1.73 sq M.predicted among non-blacks MDRD (S/P/Bld) [Vol rate/Area] 73 mL/min/{1.73_m2} >60 [facility] Comment on above: mL/min/1.73m2 CKD-EP I Creatinine Equation (2020) [facility]dered By: Serg Solis on 11-29-2024 Glucose [Mass/Vol] 265 mg/dL High 74-106 [facility] Comment on above: MANAGEMENT OF PATIEN T CARE PER NURSING PROTOCOL Glucose [Mass/Vol] 275 mg/dL High 74-106 [facility] Comment on above: MANAGEMENT OF PATIEN T CARE PER NURSING PROTOCOL Hematocrit Auto (Bld) [Volum e fraction]Ordered By: Serg Solis on 11-29-2024 Hematocrit (Bld) [Volume fraction] 38.2 % 37-47 [facility] Hemoglobin measurementOrdere d By: Serg Solis on 11-29-2024 Hemoglobin (Bld) [Mass/Vol] 12.6 g/dL 12.0-15.0 [facility] Immature granulocytes/100 WB C Auto (Bld)Ordered By: Serg Solis on 11-29-2024 Immature granulocytes/100 WBC (Bld) 0.000 % 0.0-0.9 [facility] Comment on above: IG% - Immature Granu locytes (promyelocytes, myelocytes and metamyelocytes) > 1% indicates that a LEFT SHIFT is Present. Ketones Test strip Ql (U)Ord ered By: Serg Solis on 11-29-2024 Ketones Ql (U) 15 mg/dl High Negative [facility] Laboratory - Chemistry and C hemistry - challengeOrdered By: Serg Solis on 11-29-2024 AST [Catalytic activity/Vol] 23 U/L <32 [facility] MCV (mean corpuscular volume ) determinationOrdered By: Serg Solis on 11-29-2024 MCV (RBC) [Entitic vol] 91.0 fL 81-99 [facility] Mean corpuscular hemoglobin (MCH) determinationOrdered By: Serg Solis on 11-29-2024 MCH (RBC) [Entitic mass] 30.0 pg 27.0-32.0 [facility] Mean corpuscular hemoglobin concentration (MCHC) determinationOrdered By: Serg Solis on 11-29-2024 MCHC (RBC) [Mass/Vol] 33.0 g/dL 32-36 [facility] Mean platelet volume determi nationOrdered By: Serg Solis on 11-29-2024 Platelet mean volume (Bld) [Entitic vol] 12.1 fL High 6.2-12.0 [facility] Microscopic analysis of urin e for red blood cells (RBC)Ordered By: Serg Solis on 11-29-2024 Microscopic analysis of urine for red blood cells (RBC) 0 SEEN /hpf 0-5 [facility] Monocyte percentageOrdered B y: Serg Solis on 11-29-2024 Monocytes/100 WBC (Bld) 7.2 % 0-10 [facility] Mucus LM Ql (Urine sed)Order ed By: Serg Solis on 11-29-2024 Mucus Ql (Urine sed) 0 SEEN /hpf [facility] Neutrophil percentageOrdered By: Serg Solis on 11-29-2024 Neutrophils/100 WBC (Bld) 64.8 % 47-70 [facility] Nitrite Test strip Ql (U)Ord ered By: Serg Solis on 11-29-2024 Nitrite Ql (U) Negative Negative [facility] No Panel InformationOrdered By: Serg Solis on 11-29-2024 23 U/L <32 [facility] Nucleated red blood cell per centageOrdered By: Serg Solis on 11-29-2024 Nucleated RBC/100 WBC (Bld) [Ratio] 0 % 0-5 [facility] Platelet countOrdered By: Abundio Solis on 11-29-2024 Platelets (Bld) [#/Vol] 153 10*3/uL 150-450 [facility] Potassium measurement (mass/ volume)Ordered By: Serg Solis on 11-29-2024 Potassium (Unsp spec) [Mass/Vol] 4.2 mmol/L 3.3-5.1 [facility] Protein Test strip Ql (U)Ord ered By: Serg Solis on 11-29-2024 Protein Ql (U) 15 mg/dl High Negative [facility] RBC Auto (Bld) [#/Vol]Ordere d By: Serg Solis on 11-29-2024 RBC (Bld) [#/Vol] 4.20 10*6/uL 4.2-5.4 [facility] Serum creatinine measurement (mass/volume)Ordered By: Serg Solis on 11-29-2024 Creatinine [Mass/Vol] 0.82 mg/dL 0.70-1.20 [facility] Serum globulin measurementOr dered By: Serg Solis on 11-29-2024 Globulin (S) [Mass/Vol] 2.7 g/dL 2.2-4.2 [facility] Serum glucose measurement (m ass/volume)Ordered By: Serg Solis on 11-29-2024 Glucose [Mass/Vol] 286 mg/dL High 70-99 [facility] Serum or plasma alanine ramírez otransferase (ALT) measurementOrdered By: Serg Solis on 11-29-2024 ALT [Catalytic activity/Vol] 15 U/L <35 [facility] Serum or plasma albumin zora urement (mass/volume)Ordered By: Serg Solis on 11-29-2024 Albumin [Mass/Vol] 3.8 g/dL 3.4-4.8 [facility] Serum or plasma albumin/glob ulin mass ratioOrdered By: Serg Solis on 11-29-2024 Albumin/Globulin [Mass ratio] 1.4 {ratio} 0.9-2.4 [facility] Serum or plasma alkaline dhiraj sphatase measurementOrdered By: Serg Solis on 11-29-2024 ALP [Catalytic activity/Vol] 75 U/L 35-104 [facility] Serum or plasma calcium zora urement (mass/volume)Ordered By: Serg Solis on 11-29-2024 Calcium [Mass/Vol] 9.0 mg/dL 7.6-11.0 [facility] Serum or plasma urea nitroge n measurement (mass/volume)Ordered By: Serg Solis on 11-29-2024 Urea nitrogen [Mass/Vol] 18 mg/dL 4-19 [facility] Sodium levelOrdered By: Serg Solis on 11-29-2024 Sodium [Moles/Vol] 135 mmol/L 133-145 [facility] Squamous epithelial cells de tection in urine sediment by light microscopyOrdered By: Serg Solis on 11-29-2024 Epithelial cells.squamous LM Ql (Urine sed) 0-5 SEEN /hpf 5-10 [facility] Total proteinOrdered By: Ting Solis on 11-29-2024 Protein [Mass/Vol] 6.5 g/dL 5.9-8.4 [facility] Urinalysis, Completeon 05-15 -2025 EPI,SQUAMOUS 0-5 SEEN Normal 5-10 [facility] Comment on above: Order Comment: CLEAN CATCH Performed By: #### L 400.0001 ####[facility] [address] [place], [address] WBC 0-5 SEEN Normal 0-5 [facility] Comment on above: Order Comment: CLEAN CATCH Performed By: #### L 400.0001 ####[facility] [address] [place], [address] BACTERIA 0 SEEN Normal None Seen [facility] Comment on above: Order Comment: CLEAN CATCH Performed By: #### L 400.0001 ####[facility] [address] [place], [address] Mucus Ql (Urine sed) 0 SEEN Normal [facility] Comment on above: Order Comment: CLEAN CATCH Performed By: #### L 400.0001 ####[facility] [address] [place], [address] RBC 0 SEEN Normal 0-5 [facility] Comment on above: Order Comment: CLEAN CATCH Performed By: #### L 400.0001 ####[facility] [address] [place], [address] Urine clarityOrdered By: Ting Solis on 11-29-2024 Clarity (U) Clear Clear [facility] Urine color determinationOrd ered By: Serg Solis on 11-29-2024 Color (U) Straw Yellow [facility] Urine glucose detectionOrder ed By: Serg Solis on 11-29-2024 Glucose Ql (U) 50 mg/dl High Normal [facility] Urine leukocyte esterase det ection by dipstickOrdered By: Serg Solis on 11-29-2024 Leukocyte esterase Test strip Ql (U) Negative Negative [facility] Urine pHOrdered By: Serg cedillo on 11-29-2024 pH (U) 6.0 [pH] 5.0 - 8.0 [facility] Urine sediment bacteria coun t by microscopy (number/high power field)Ordered By: Serg Solis on 11-29-2024 Bacteria LM.HPF (Urine sed) [#/Area] 0 /[HPF] None Seen [facility] Urine specific gravity measu rementOrdered By: Serg Solis on 11-29-2024 Specific gravity (U) [Rel density] 1.015 1.002-1.030 [facility] Urine urobilinogen measureme ntOrdered By: Serg Solis on 11-29-2024 Urobilinogen Ql (U) Normal mg/dl Normal [facility] White blood cell (WBC) count Ordered By: Serg Solis on 11-29-2024 WBC (Bld) [#/Vol] 5.3 10*3/uL 4.4-11.0 [facility] White blood cell countOrdere d By: Serg Solis on 11-29-2024 White blood cell count 0-5 SEEN /hpf 0-5 [facility] Cardiology Visit Reporton Cardiology Visit Report Normal [facility] CNPTOUTREACHon 11-07-2024 CNPTOUTREACH Normal [facility] Bedside Glucoseon 11-03-2024 FINGERSTICK GLU 135 mg/dL High 74-106 [facility] Comment on above: Result Comment: MERCEDES SUBRAMANIAN OF PATIENT CARE PER NURSING PROTOCOL Performed By: #### L 501.080 ####[facility] [address] [place], [address] Emergency Department Summary on 11-03-2024 Emergency Department Summary Normal [facility] Glucose measurement at bedsi deOrdered By: Zay Juan on 11-03-2024 Glucose [Mass/Vol] 135 mg/dL High 74-106 [facility] Comment on above: MANAGEMENT OF PATIEN T CARE PER NURSING PROTOCOL Venous Duplex US, Unilateral on 11-03-2024 Venous Duplex US, Unilateral Normal [facility] CNOVon 10-31-2024 CNOV Normal [facility] CNPNon 10-29-2024 CNPN Normal [facility] CNPNon 10-25-2024 CNPN Normal [facility] Bedside Glucoseon 10-24-2024 FINGERSTICK GLU 194 mg/dL High 74-106 [facility] Comment on above: Result Comment: MERCEDES SUBRAMANIAN OF PATIENT CARE PER NURSING PROTOCOL Performed By: #### L 501.080 ####[facility] [address] [place], [place], [address] Emergency Department Summary on 10-24-2024 Emergency Department Summary Normal [facility] deOrdered By: Benjamín Stanford on 10-24-2024 Bedside Glucose (Misc Panel) 194 mg/dL High 74-106 [facility] Comment on above: MANAGEMENT OF PATIEN T CARE PER NURSING PROTOCOL Glucose [Mass/Vol] 194 mg/dL High -106 [facility] Comment on above: MANAGEMENT OF PATIEN T CARE PER NURSING PROTOCOL Venous Duplex Imag/Limited/U nion 10-24-2024 Venous Duplex Imag/Limited/Uni Normal [facility] Absolute lymphocyte countOrd ered By: Holland Sanches on 10-19-2024 Lymphocytes Auto (Unsp spec) [#/Vol] 0.79 10*3/uL Low 0.83-4.51 [facility] Absolute neutrophil countOrd ered By: Holland Sanches on 10-19-2024 Neutrophils (Bld) [#/Vol] 4.2 10*3/uL 2.0-7.7 [facility] Anion gap in Serum or Plasma Ordered By: Holland Sanches on 10-19-2024 Anion gap [Moles/Vol] 12 mmol/L 5-15 [facility] Automated lymphocyte count a s percentage of total leukocytesOrdered By: Holland Sanches on 10-19-2024 Lymphocytes/100 WBC Auto (Unsp spec) 14.4 % Low 19-41 [facility] BUN/creatinine ratioOrdered By: Holland Sanches on 10-19-2024 Urea nitrogen/Creatinine [Mass ratio] 23.1 mg/mg High 10-20 [facility] Basic Metabolic Profile (BMP )on 10-19-2024 BUN/CRE 23.1 RATIO High - [facility] Comment on above: Performed By: #### L 100.0100, L501.6901, L500.2500 ####[facility] [address] [place], [address] Calcium [Mass/Vol] 9.3 mg/dL Normal 7.6-11.0 [facility] Comment on above: Performed By: #### L 100.0100, L501.6901, L500.2500 ####[facility] [address] [place], [address] Chloride [Moles/Vol] 101 mmol/L Normal 98-108 [facility] Comment on above: Performed By: #### L 100.0100, L501.6901, L500.2500 ####[facility] [address] [place], [address] CO2 [Moles/Vol] 23.3 mmol/L Normal 21.0-32.0 [facility] Comment on above: Performed By: #### L 100.0100, L501.6901, L500.2500 ####[facility] [address] [place], [address] Creatinine [Mass/Vol] 0.83 mg/dL Normal 0.70-1.20 [facility] Comment on above: Performed By: #### L 100.0100, L501.6901, L500.2500 ####[facility] [address] [place], [address] ECRCL 79.68 ml/min Normal 50-250 [facility] Comment on above: Performed By: #### L 100.0100, L501.6901, L500.2500 ####[facility] [address] [place], [address] GAP 12 Normal 5-15 [facility] Comment on above: Performed By: #### L 100.0100, L501.6901, L500.2500 ####[facility] [address] [place], [address] GFR/1.73 sq M.predicted among non-blacks MDRD (S/P/Bld) [Vol rate/Area] 72 mL/min/{1.73_m2} Normal >60 [facility] Comment on above: Result Comment: mL/m in/1.73m2 CKD-EPI Creatinine Equation (2020) Performed By: #### L 100.0100, L501.6901, L500.2500 ####[facility] [address] [place], [address] Glucose [Mass/Vol] 334 mg/dL High 70-99 [facility] Comment on above: Performed By: #### L 100.0100, L501.6901, L500.2500 ####[facility] [address] [place], [address] Potassium [Moles/Vol] 4.5 mmol/L Normal 3.3-5.1 [facility] Comment on above: Performed By: #### L 100.0100, L501.6901, L500.2500 ####[facility] [address] [place], [address] Sodium [Moles/Vol] 136 mmol/L Normal 133-145 [facility] Comment on above: Performed By: #### L 100.0100, L501.6901, L500.2500 ####[facility] [address] [place], [address] Urea nitrogen [Mass/Vol] 19 mg/dL Normal 4-19 [facility] Comment on above: Performed By: #### L 100.0100, L501.6901, L500.2500 ####[facility] [address] [place], [address] Basophil percentageOrdered B y: Holland Sanches on 10-19-2024 Basophils/100 WBC (Bld) 0.5 % 0-1 [facility] Bedside Glucoseon 10-19-2024 FINGERSTICK GLU 320 mg/dL High 74-106 [facility] Comment on above: Result Comment: MERCEDES SUBRAMANIAN OF PATIENT CARE PER NURSING PROTOCOL Performed By: #### L 501.080 ####[facility] [address] [place], [address] FINGERSTICK GLU 339 mg/dL High 74-106 [facility] Comment on above: Result Comment: MERCEDES SUBRAMANIAN OF PATIENT CARE PER NURSING PROTOCOL Performed By: #### L 501.080 ####[facility] [address] [place], [address] Beta hydroxybutyrate [Mass/V ol]Ordered By: Holland Sanches on 10-19-2024 Beta-Hydroxybutyric Acid mmol/L 0.8 mmol/L 0.0-0.3 [facility] Beta-Hydroxbytyrateon 2024 BETA-HYDROXYBUT 0.8 mmol/L Normal 0.0-0.3 [facility] Comment on above: Performed By: #### L 100.0100, L501.6901, L500.2500 ####[facility] [address] [place], [address] Beta-hydroxybutyrateOrdered By: Holland Sanches on 10-19-2024 Beta hydroxybutyrate [Mass/Vol] 0.8 mmol/L 0.0-0.3 [facility] Bilirubin Test strip Ql (U)O rdered By: Holland Sanches on 10-19-2024 Bilirubin Ql (U) Negative Negative [facility] CBC W/Diff, Automatedon Absolute Lymph 0.79 X10 3/uL Low 0.83-4.51 [facility] Comment on above: Performed By: #### L 100.0100, L501.6901, L500.2500 ####[facility] [address] [place], [address] Absolute Neut 4.2 X10 3/uL Normal 2.0-7.7 [facility] Comment on above: Performed By: #### L 100.0100, L501.6901, L500.2500 ####[facility] [address] [place], [address] Basophils/100 WBC (Bld) 0.5 % Normal 0-1 [facility] Comment on above: Performed By: #### L 100.0100, L501.6901, L500.2500 ####[facility] [address] [place], [address] Eosinophils/100 WBC (Bld) 2.5 % Normal 0-5 [facility] Comment on above: Performed By: #### L 100.0100, L501.6901, L500.2500 ####[facility] [address] [place], [address] Erythrocyte distribution width (RBC) [Ratio] 12.7 % Normal 11.6-14.6 [facility] Comment on above: Performed By: #### L 100.0100, L501.6901, L500.2500 ####[facility] [address] [place], [address] Hematocrit (Bld) [Volume fraction] 39.4 % Normal 37-47 [facility] Comment on above: Performed By: #### L 100.0100, L501.6901, L500.2500 ####[facility] [address] [place], [address] Hemoglobin (Bld) [Mass/Vol] 12.9 g/dL Normal 12.0-15.0 [facility] Comment on above: Performed By: #### L 100.0100, L501.6901, L500.2500 ####[facility] [address] [place], [address] IG% 0.000 Normal 0.0-0.9 [facility] Comment on above: Result Comment: IG% - Immature Granulocytes (promyelocytes, myelocytes andmetamyelocytes) > 1% indicates that a LEFT SHIFT is Present. Performed By: #### L 100.0100, L501.6901, L500.2500 ####[facility] [address] [place], [address] Lymphocytes/100 WBC (Bld) 14.4 % Low 19-41 [facility] Comment on above: Performed By: #### L 100.0100, L501.6901, L500.2500 ####[facility] [address], [address] MCH (RBC) [Entitic mass] 29.7 pg Normal 27.0-32.0 [facility] Comment on above: Performed By: #### L 100.0100, L501.6901, L500.2500 ####[facility] [address] [place], [address] MCHC (RBC) [Mass/Vol] 32.7 g/dL Normal 32-36 [facility] Comment on above: Performed By: #### L 100.0100, L501.6901, L500.2500 ####[facility] [address] [place], [address] MCV (RBC) [Entitic vol] 90.6 fL Normal 81-99 [facility] Comment on above: Performed By: #### L 100.0100, L501.6901, L500.2500 ####[facility] [address] [place], [address] Monocytes/100 WBC (Bld) 6.4 % Normal 0-10 [facility] Comment on above: Performed By: #### L 100.0100, L501.6901, L500.2500 ####[facility] [address], [address] Neutrophils/100 WBC (Bld) 76.2 % High 47-70 [facility] Comment on above: Performed By: #### L 100.0100, L501.6901, L500.2500 ####[facility] [address] [place], [address] Nucleated RBC (Bld) [#/Vol] 0 10*3/uL Normal 0-5 [facility] Comment on above: Performed By: #### L 100.0100, L501.6901, L500.2500 ####[facility] [address] [place], [address] Platelet mean volume (Bld) [Entitic vol] 12.9 fL High 6.2-12.0 [facility] Comment on above: Performed By: #### L 100.0100, L501.6901, L500.2500 ####[facility] [address] [place], [address] Platelets (Bld) [#/Vol] 159 10*3/uL Normal 150-450 [facility] Comment on above: Performed By: #### L 100.0100, L501.6901, L500.2500 ####[facility] [address] [place], [address] RBC (Bld) [#/Vol] 4.35 10*6/uL Normal 4.2-5.4 [facility] Comment on above: Performed By: #### L 100.0100, L501.6901, L500.2500 ####[facility] [address] [place], [address] RDW SD 41.8 fl Normal 35.1-43.9 [facility] Comment on above: Performed By: #### L 100.0100, L501.6901, L500.2500 ####[facility] [address] [place], [address] WBC (Bld) [#/Vol] 5.5 10*3/uL Normal 4.4-11.0 [facility] Comment on above: Performed By: #### L 100.0100, L501.6901, L500.2500 ####[facility] [address] [place], [address] CNPNon 10-19-2024 CNPN Normal [facility] Carbon dioxide, total [Moles /volume] in Central venous bloodOrdered By: Holland Sanches on 10-19-2024 CO2 [Moles/Vol] 23.3 mmol/L 21.0-32.0 [facility] Chloride assayOrdered By: Michael Sanches on 10-19-2024 Chloride [Moles/Vol] 101 mmol/L 98-108 [facility] Emergency Department Summary on 10-19-2024 Emergency Department Summary Normal [facility] Eosinophil percentageOrdered By: Holland Sanches on 10-19-2024 Eosinophils/100 WBC (Bld) 2.5 % 0-5 [facility] Epithelial cells.squamous LM Ql (Urine sed)Ordered By: Holland Sanches on 10-19-2024 Epithelial cells.squamous LM.HPF (Urine sed) [#/Area] 0 /[HPF] 5-10 [facility] Erythrocyte distribution wid th (RBC) [Ratio]Ordered By: Holland Sanches on 10-19-2024 Erythrocyte distribution width (RBC) [Entitic vol] 41.8 fL 35.1-43.9 [facility] Erythrocyte distribution wid th ratioOrdered By: Holland Sanches on 10-19-2024 Erythrocyte distribution width (RBC) [Ratio] 12.7 % 11.6-14.6 [facility] Erythrocyte distribution wid th standard deviationOrdered By: Holland Sanches on 10-19-2024 Erythrocyte distribution width (RBC) [Ratio] 41.8 fl 35.1-43.9 [facility] Estimation of creatinine kimberly aranceOrdered By: Holland Sanches on 10-19-2024 Estimated Creatinine Clearance Calc 79.68 ml/min 50-250 [facility] GFR/1.73 sq M.predicted du g non-blacks MDRD (S/P/Bld) [Vol rate/Area]Ordered By: Holland Sanches on 10-19-2024 Estimated GFR (MDRD) Non-Af Amer 72 >60 [facility] Comment on above: mL/min/1.73m2 CKD-EP I Creatinine Equation (2020) Glomerular filtration rate ( GFR) estimation/1.73 sq m using serum, plasma, or whole bOrdered By: Holland Sanches on 10-19-2024 GFR/1.73 sq M.predicted among non-blacks MDRD (S/P/Bld) [Vol rate/Area] 72 mL/min/{1.73_m2} >60 [facility] Comment on above: mL/min/1.73m2 CKD-EP I Creatinine Equation (2020) Glucose Ql (U)Ordered By: Michael Sanches on 10-19-2024 Glucose (U) [Mass/Vol] 1000 mg/dL High Normal [facility] deOrdered By: Holland Sanches on 10-19-2024 Bedside Glucose (Misc Panel) 320 mg/dL High 74-106 [facility] Comment on above: MANAGEMENT OF PATIEN T CARE PER NURSING PROTOCOL Glucose [Mass/Vol] 320 mg/dL High 74-106 [facility] Comment on above: MANAGEMENT OF PATIEN T CARE PER NURSING PROTOCOL HIP, UNI W/ Pelvis 2-3 Views on 10-19-2024 HIP, UNI W/ Pelvis 2-3 Views Normal [facility] Hematocrit Auto (Bld) [Volum e fraction]Ordered By: Holland Sanches on 10-19-2024 Hematocrit (Bld) [Volume fraction] 39.4 % 37-47 [facility] Hemoglobin measurementOrdere d By: Holland Sanches on 10-19-2024 Hemoglobin (Bld) [Mass/Vol] 12.9 g/dL 12.0-15.0 [facility] Immature granulocytes/100 WB C Auto (Bld)Ordered By: Holland Sanches on 10-19-2024 Immature granulocytes/100 WBC (Bld) 0.000 % 0.0-0.9 [facility] Comment on above: IG% - Immature Granu locytes (promyelocytes, myelocytes and metamyelocytes) > 1% indicates that a LEFT SHIFT is Present. Ketones Test strip Ql (U)Ord ered By: Holland Sanches on 10-19-2024 Ketones Ql (U) 50 mg/dl High Negative [facility] Lymphocytes Auto (Unsp spec) [#/Vol]Ordered By: Holland Sanches on 10-19-2024 Lymphocytes (Bld) [#/Vol] 0.79 10*3/uL Low 0.83-4.51 [facility] Lymphocytes/100 WBC Auto (Un sp spec)Ordered By: Holland Sanches on 10-19-2024 Lymphocytes/100 WBC (Bld) 14.4 % Low 19-41 [facility] MCV (mean corpuscular volume ) determinationOrdered By: Holland Sanches on 10-19-2024 MCV (RBC) [Entitic vol] 90.6 fL 81-99 [facility] Mean corpuscular hemoglobin (MCH) determinationOrdered By: Holland Sanches on 10-19-2024 MCH (RBC) [Entitic mass] 29.7 pg 27.0-32.0 [facility] Mean corpuscular hemoglobin concentration (MCHC) determinationOrdered By: Holland Sanches on 10-19-2024 MCHC (RBC) [Mass/Vol] 32.7 g/dL 32-36 [facility] Mean platelet volume determi nationOrdered By: Holland Sanches on 10-19-2024 Platelet mean volume (Bld) [Entitic vol] 12.9 fL High 6.2-12.0 [facility] Microscopic analysis of urin e for red blood cells (RBC)Ordered By: Holland Sanches on 10-19-2024 Microscopic analysis of urine for red blood cells (RBC) 0 SEEN /hpf 0-5 [facility] Urine RBC 0 SEEN /hpf 0-5 [facility] Monocyte percentageOrdered B y: Holland Sanches on 10-19-2024 Monocytes/100 WBC (Bld) 6.4 % 0-10 [facility] Mucus LM Ql (Urine sed)Order ed By: Holland Sanches on 10-19-2024 Mucus Ql (Urine sed) 0 SEEN /hpf [facility] Neutrophil percentageOrdered By: Holland Sanches on 10-19-2024 Neutrophils/100 WBC (Bld) 76.2 % High 47-70 [facility] Nitrite Test strip Ql (U)Ord ered By: Holland Sanches on 10-19-2024 Nitrite Ql (U) Negative Negative [facility] Nucleated red blood cell per centageOrdered By: Holland Sanches on 10-19-2024 Nucleated RBC/100 WBC (Bld) [Ratio] 0 % 0-5 [facility] Platelet countOrdered By: Michael Sanches on 10-19-2024 Platelets (Bld) [#/Vol] 159 10*3/uL 150-450 [facility] Potassium (Unsp spec) [Mass/ Vol]Ordered By: Holland Sanches on 10-19-2024 Potassium [Moles/Vol] 4.5 mmol/L 3.3-5.1 [facility] Potassium measurement (mass/ volume)Ordered By: Holland Sanches on 10-19-2024 Potassium (Unsp spec) [Mass/Vol] 4.5 mmol/L 3.3-5.1 [facility] Protein Test strip Ql (U)Ord ered By: Holland Sanches on 10-19-2024 Protein Ql (U) Negative Negative [facility] RBC Auto (Bld) [#/Vol]Ordere d By: Holland Sanches on 10-19-2024 RBC (Bld) [#/Vol] 4.35 10*6/uL 4.2-5.4 [facility] Serum creatinine measurement (mass/volume)Ordered By: Holland Sanches on 10-19-2024 Creatinine [Mass/Vol] 0.83 mg/dL 0.70-1.20 [facility] Serum glucose measurement (m ass/volume)Ordered By: Holland Sanches on 10-19-2024 Glucose [Mass/Vol] 334 mg/dL High 70-99 [facility] Serum or plasma calcium zora urement (mass/volume)Ordered By: Holland Sanches on 10-19-2024 Calcium [Mass/Vol] 9.3 mg/dL 7.6-11.0 [facility] Serum or plasma urea nitroge n measurement (mass/volume)Ordered By: Holland Sanches on 10-19-2024 Urea nitrogen [Mass/Vol] 19 mg/dL 4-19 [facility] Sodium levelOrdered By: Frank Sanches on 10-19-2024 Sodium [Moles/Vol] 136 mmol/L 133-145 [facility] Squamous epithelial cells de tection in urine sediment by light microscopyOrdered By: Holland Sanches on 10-19-2024 Epithelial cells.squamous LM Ql (Urine sed) 0 SEEN /hpf 5-10 [facility] Urinalysis, Completeon 10-19 WBC 0-5 SEEN Normal 0-5 [facility] Comment on above: Order Comment: CLEAN CATCH Performed By: #### L 400.0001 ####[facility] [address] [place], [address] BACTERIA 0 SEEN Normal None Seen [facility] Comment on above: Order Comment: CLEAN CATCH Performed By: #### L 400.0001 ####[facility] [address] [place], [address] EPI,SQUAMOUS 0 SEEN Normal 5-10 [facility] Comment on above: Order Comment: CLEAN CATCH Performed By: #### L 400.0001 ####[facility] [address] [place], [address] Mucus Ql (Urine sed) 0 SEEN Normal [facility] Comment on above: Order Comment: CLEAN CATCH Performed By: #### L 400.0001 ####[facility] [address] [place], [address] RBC 0 SEEN Normal 0-5 [facility] Comment on above: Order Comment: CLEAN CATCH Performed By: #### L 400.0001 ####[facility] [address] [place], [address] Urine blood detectionOrdered By: Holland Sanches on 10-19-2024 Urine Occult Blood 10 /ul High Negative [facility] Urine clarityOrdered By: Fahad Sanches on 10-19-2024 Clarity (U) Clear Clear [facility] Urine color determinationOrd ered By: Holland Sanches on 10-19-2024 Color (U) Yellow Yellow [facility] Urine glucose detectionOrder ed By: Holland Sanches on 10-19-2024 Glucose Ql (U) 1000 mg/dl High Normal [facility] Urine leukocyte esterase det ection by dipstickOrdered By: Holland Sanches on 10-19-2024 Leukocyte esterase Test strip Ql (U) 25 /ul High Negative [facility] Urine pHOrdered By: Holland saunders on 10-19-2024 pH (U) 6.0 [pH] 5.0 - 8.0 [facility] Urine sediment bacteria coun t by microscopy (number/high power field)Ordered By: Holland Sanches on 10-19-2024 Bacteria LM.HPF (Urine sed) [#/Area] 0 /[HPF] None Seen [facility] Urine specific gravity measu rementOrdered By: Holland Sanches on 10-19-2024 Specific gravity (U) [Rel density] 1.015 1.002-1.030 [facility] Urine urobilinogen measureme ntOrdered By: Holland Sanches on 10-19-2024 Urobilinogen Ql (U) Normal mg/dl Normal [facility] Urobilinogen Ql (U)Ordered B y: Holland Sanches on 10-19-2024 Urine Urobilinogen Normal mg/dl Normal [facility] White blood cell (WBC) count Ordered By: Holland Sanches on 10-19-2024 WBC (Bld) [#/Vol] 5.5 10*3/uL 4.4-11.0 [facility] White blood cell countOrdere d By: Holland Sanches on 10-19-2024 Urine WBC 0-5 SEEN /hpf 0-5 [facility] White blood cell count 0-5 SEEN /hpf 0-5 [facility] CNOVon 10-15-2024 CNOV Normal [facility] CNPNon 10-04-2024 CNPN Normal [facility] ALBUMIN/CREATININE RATIO, UR INEon 10-01-2024 Albumin DL <= 20 mg/L (U) [Mass/Vol] mg/dL Normal [facility] Comment on above: Order Comment: Speci men Type: URINE SPECIMENOrdering Facility: [facility] Address: [address] [place] [address] Performed By: #### U ACR ####[facility] LABCLIA [id number] [place] [id number] [place] Albumin/Creatinine (U) [Mass ratio] <27 Normal <30 [facility] Comment on above: Order Comment: Speci men Type: URINE SPECIMENOrdering Facility: [facility] Address: [address] [place] [address] Result Comment: Adul t Male and Female Nephrotic Criteria:<30 mg/g is considered normal to mildly cafkuhalj36-880 mg/g is considered moderately increased>300 mg/g is considered severely increasedKDIGO. (2013). KDIGO 2012 Clinical Practice Guideline for the Evaluation and Management of Chronic Kidney Disease. Official Journal of the International Society of Nephrology, 3(1), 1-150. Performed By: #### U ACR ####[facility] LABCLIA [id number] [place] [address] [place] Creatinine (U) [Mass/Vol] 44.9 mg/dL Normal 20.0-300.0 [facility] Comment on above: Order Comment: Speci men Type: URINE SPECIMENOrdering Facility: [facility] Address: [address] [place] [address] Performed By: #### U ACR ####[facility] LABIA [id number] [place] [id number] [place] CBC panel Auto (Bld)on 10-01 Erythrocyte distribution width (RBC) [Ratio] 12.9 % Normal 11.5-15.0 [facility] Comment on above: Order Comment: Speci men Type: BLOOD SPECIMENOrdering Facility: [facility] Address: [address] [place] [address] Performed By: #### 5 8410-2 ####[facility] [id number] [place] [id number] [place] Hematocrit (Bld) [Volume fraction] 39.1 % Normal 36.0-46.0 [facility] Comment on above: Order Comment: Speci men Type: BLOOD SPECIMENOrdering Facility: [facility] Address: [address] [place] [address] Performed By: #### 5 8410-2 ####[facility] MATTHEWEATONJOSÉ LUIS [id number] [place] [address] [place] Hemoglobin (Bld) [Mass/Vol] 12.9 g/dL Normal 11.5-15.5 [facility] Comment on above: Order Comment: Speci men Type: BLOOD SPECIMENOrdering Facility: [facility] Address: [address] [place] [address] Performed By: #### 5 8410-2 ####[facility] [id number] [place] [address] [place] MCH (RBC) [Entitic mass] 29.7 pg Normal 26.0-34.0 [facility] Comment on above: Order Comment: Speci men Type: BLOOD SPECIMENOrdering Facility: [facility] Address: [address] [place] [address] Performed By: #### 5 8410-2 ####[facility]ITALRICARDOGm [id number] [address] [place] MCHC (RBC) [Mass/Vol] 33.0 g/dL Normal 30.5-36.0 [facility] Comment on above: Order Comment: Speci men Type: BLOOD SPECIMENOrdering Facility: [facility] Address: [address] [place] [address] Performed By: #### 5 8410-2 ####[facility]ITALNCLI [id number] [place] [address] [place] MCV (RBC) [Entitic vol] 90.1 fL Normal 80.0-100.0 [facility] Comment on above: Order Comment: Speci men Type: BLOOD SPECIMENOrdering Facility: [facility] Address: [address] [place] [address] Performed By: #### 5 8410-2 ####[facility] MILLWNCLIA [id number] [place] [address] [place] Nucleated RBC (Bld) [#/Vol] 10*3/uL Normal <0.01 [facility] Comment on above: Order Comment: Speci men Type: BLOOD SPECIMENOrdering Facility: [facility] Address: [address] [place] [address] Performed By: #### 5 8410-2 ####[facility]ITALRICARDOLIA [id number] [place] [address] [place] Platelet mean volume (Bld) [Entitic vol] 11.9 fL Normal 9.0-12.7 [facility] Comment on above: Order Comment: Speci men Type: BLOOD SPECIMENOrdering Facility: [facility] Address: [address] [place] [address] Performed By: #### 5 8410-2 ####[facility] [id number] [place] [address] [place] Platelets (Bld) [#/Vol] 206 10*3/uL Normal 150-400 [facility] Comment on above: Order Comment: Speci men Type: BLOOD SPECIMENOrdering Facility: [facility] Address: [address] [place] [address] Performed By: #### 5 8410-2 ####[facility] [id number] [place] [address] [place] RBC (Bld) [#/Vol] 4.34 10*6/uL Normal 3.90-5.20 [facility] Comment on above: Order Comment: Speci men Type: BLOOD SPECIMENOrdering Facility: [facility] Address: [address] [place] [address] Performed By: #### 5 8410-2 ####[facility]ITALNCL[facility] [id number] [place] [address] [place] WBC (Bld) [#/Vol] 6.04 10*3/uL Normal 3.70-11.00 [facility] Comment on above: Order Comment: Speci men Type: BLOOD SPECIMENOrdering Facility: [facility] Address: [address] [place] [address] Performed By: #### 5 8410-2 ####[facility]ENTERWNCLIA [id number] [place] [address] [place] CNCNPATEDon 10-01-2024 CNCNPATED Normal [facility] metabolic 2000 panelon 10-01-2024 Albumin [Mass/Vol] 3.9 g/dL Normal 3.9-4.9 [facility] Comment on above: Order Comment: Speci men Type: BLOOD SPECIMENOrdering Facility: [facility] Address: [address] [place] [address] Performed By: #### 2 4323-8 ####[facility] HOSPITALLIA [id number] [place] [address] [place] ALP [Catalytic activity/Vol] 74 U/L Normal 34-123 [facility] Comment on above: Order Comment: Speci men Type: BLOOD SPECIMENOrdering Facility: [facility] Address: [address] [place] [address] Performed By: #### 2 4323-8 ####[facility]ENTERWNCLIA [id number] [place] [address] [place] ALT [Catalytic activity/Vol] 21 U/L Normal 7-38 [facility] Comment on above: Order Comment: Speci men Type: BLOOD SPECIMENOrdering Facility: [facility] Address: [address] [place] [address] Performed By: #### 2 4323-8 ####[facility]ITALNCLIA [id number] [place] [address] [place] Anion gap [Moles/Vol] 9 mmol/L Normal 8-15 [facility] Comment on above: Order Comment: Speci men Type: BLOOD SPECIMENOrdering Facility: [facility] Address: [address] [place] [address] Performed By: #### 2 4323-8 ####[facility] MILLWNCLIA [id number] [place] [address] [place] AST [Catalytic activity/Vol] 21 U/L Normal 13-35 [facility] Comment on above: Order Comment: Speci men Type: BLOOD SPECIMENOrdering Facility: [facility] Address: [address] [place] [address] Performed By: #### 2 4323-8 ####[facility]ITALNCLIA [id number] [place] [address] [place] Bilirubin [Mass/Vol] 0.6 mg/dL Normal 0.2-1.3 [facility] Comment on above: Order Comment: Speci men Type: BLOOD SPECIMENOrdering Facility: [facility] Address: [address] [place] [address] Performed By: #### 2 4323-8 ####[facility] HOSPITALLIA [id number] [place] [address] [place] Calcium [Mass/Vol] 9.4 mg/dL Normal 8.5-10.2 [facility] Comment on above: Order Comment: Speci men Type: BLOOD SPECIMENOrdering Facility: [facility] Address: [address] [place], [place] [address] Performed By: #### 2 4323-8 ####[facility]ITALNCLIA [id number] [place] [address] [place] Chloride [Moles/Vol] 102 mmol/L Normal 98-107 [facility] Comment on above: Order Comment: Speci men Type: BLOOD SPECIMENOrdering Facility: [facility] Address: [address] [place], [place] [address] Performed By: #### 2 4323-8 ####[facility]ITALN[facility] [id number] [place] [address] [place] CO2 [Moles/Vol] 29 mmol/L Normal 22-30 [facility] Comment on above: Order Comment: Speci men Type: BLOOD SPECIMENOrdering Facility: [facility] Address: [address] [place] [address] Performed By: #### 2 4323-8 ####[facility]ITAL[facility] [id number] [place] [address] [place] Creatinine [Mass/Vol] 0.69 mg/dL Normal 0.58-0.96 [facility] Comment on above: Order Comment: Speci men Type: BLOOD SPECIMENOrdering Facility: [facility] Address: [address] [place] [address] Performed By: #### 2 4323-8 ####[facility]PITALNCA [id number] [address] [place] Creatinine and Glomerular filtration rate.predicted panel (S/P/Bld) 88 mL/min/1.73m??? Normal >=60 [facility] Comment on above: Order Comment: Speci men Type: BLOOD SPECIMENOrdering Facility: [facility] Address: [address] [place] [address] Result Comment: Judith mated Glomerular Filtration Rate [...] actual GFR. Performed By: #### 2 4323-8 ####[facility] CENTERWNCLI [id number] [place] [address] [place] Glucose [Mass/Vol] 173 mg/dL High 74-99 [facility] Comment on above: Order Comment: Speci men Type: BLOOD SPECIMENOrdering Facility: [facility] Address: [address] [place] [address] Result Comment: The [place] Diabetes Association (ADA) provides guidance for cutoff [...] Standards of Medical Care in Diabetes 2016, [place] [employer]. Diabetes Care. 2016.39(Suppl 1). Performed By: #### 2 4323-8 ####[facility] MILLTOWNCLIA [id number] [place] [address] [place] Potassium [Moles/Vol] 4.4 mmol/L Normal 3.7-5.1 [facility] Comment on above: Order Comment: Speci men Type: BLOOD SPECIMENOrdering Facility: [facility] Address: [address] [place] [address] Performed By: #### 2 4323-8 ####[facility] MILLCORNELLWNCLIA [id number] [place] [address] [place] Protein [Mass/Vol] 6.5 g/dL Normal 6.3-8.0 [facility] Comment on above: Order Comment: Speci men Type: BLOOD SPECIMENOrdering Facility: [facility] Address: [address] [place] [address] Performed By: #### 2 4323-8 ####[facility] MILLCORNELLWNCLIA [id number] [place] [address] [place] Sodium [Moles/Vol] 140 mmol/L Normal 136-144 [facility] Comment on above: Order Comment: Speci men Type: BLOOD SPECIMENOrdering Facility: [facility] Address: [address] [place] [address] Performed By: #### 2 4323-8 ####[facility] CENTERA [id number] [place] [address] [place] Urea nitrogen [Mass/Vol] 17 mg/dL Normal 7-21 [facility] Comment on above: Order Comment: Speci men Type: BLOOD SPECIMENOrdering Facility: [facility] Address: [address] [place] [address] Performed By: #### 2 4323-8 ####[facility]OSPITALNCA [id number] [address] [place] CNPNon 09-27-2024 CNPN Normal [facility] CNOVon 09-26-2024 CNOV Normal [facility] Absolute lymphocyte countOrd ered By: Amber Martino on 09-23-2024 Lymphocytes Auto (Unsp spec) [#/Vol] 0.69 10*3/uL Low 0.83-4.51 [facility] Absolute neutrophil countOrd ered By: Amber Martino on 09-23-2024 Neutrophils (Bld) [#/Vol] 2.7 10*3/uL 2.0-7.7 [facility] Anion gap in Serum or Plasma Ordered By: Amber Martino on 09-23-2024 Anion gap [Moles/Vol] 11 mmol/L 5-15 [facility] Automated lymphocyte count a s percentage of total leukocytesOrdered By: Amber Martino on 09-23-2024 Lymphocytes/100 WBC Auto (Unsp spec) 17.6 % Low 19-41 [facility] BUN/creatinine ratioOrdered By: Amber Martino on 09-23-2024 Urea nitrogen/Creatinine [Mass ratio] 20.4 mg/mg High 10-20 [facility] Basic Metabolic Profile (BMP )on 09-23-2024 BUN/CRE 20.4 RATIO High 10-20 [facility] Comment on above: Performed By: #### L 100.0100, L500.2500 ####[facility] [address] [place], [address] Calcium [Mass/Vol] 8.5 mg/dL Normal 7.6-11.0 [facility] Comment on above: Performed By: #### L 100.0100, L500.2500 ####[facility] [address] [place], [address] Chloride [Moles/Vol] 106 mmol/L Normal 98-108 [facility] Comment on above: Performed By: #### L 100.0100, L500.2500 ####[facility] [address] [place], [address] CO2 [Moles/Vol] 21.6 mmol/L Normal 21.0-32.0 [facility] Comment on above: Performed By: #### L 100.0100, L500.2500 ####[facility] [address] [place], [address] Creatinine [Mass/Vol] 0.70 mg/dL Normal 0.70-1.20 [facility] Comment on above: Performed By: #### L 100.0100, L500.2500 ####[facility] [address] [place], [address] ECRCL 84.46 ml/min Normal 50-250 [facility] Comment on above: Performed By: #### L 100.0100, L500.2500 ####[facility] [address] [place], [address] GAP 11 Normal 5-15 [facility] Comment on above: Performed By: #### L 100.0100, L500.2500 ####[facility] [address] [place], [address] GFR/1.73 sq M.predicted among non-blacks MDRD (S/P/Bld) [Vol rate/Area] 88 mL/min/{1.73_m2} Normal >60 [facility] Comment on above: Result Comment: mL/m in/1.73m2 CKD-EPI Creatinine Equation (2020) Performed By: #### L 100.0100, L500.2500 ####[facility] [address] [place], [address] Glucose [Mass/Vol] 125 mg/dL High 70-99 [facility] Comment on above: Performed By: #### L 100.0100, L500.2500 ####[facility] [address] [place], [address] Potassium [Moles/Vol] 3.7 mmol/L Normal 3.3-5.1 [facility] Comment on above: Performed By: #### L 100.0100, L500.2500 ####[facility] [address] [place], [address] Sodium [Moles/Vol] 139 mmol/L Normal 133-145 [facility] Comment on above: Performed By: #### L 100.0100, L500.2500 ####[facility] [address] [place], [address] Urea nitrogen [Mass/Vol] 14 mg/dL Normal 4-19 [facility] Comment on above: Performed By: #### L 100.0100, L500.2500 ####[facility] [address] [place], [address] Basophil percentageOrdered B y: Amber Martino on 09-23-2024 Basophils/100 WBC (Bld) 0.3 % 0-1 [facility] CBC W/Diff, Automatedon 03-0 Absolute Lymph 0.69 X10 3/uL Low 0.83-4.51 [facility] Comment on above: Performed By: #### L 100.0100, L500.2500 ####[facility] [address] [place], [address] Absolute Neut 2.7 X10 3/uL Normal 2.0-7.7 [facility] Comment on above: Performed By: #### L 100.0100, L500.2500 ####[facility] [address] [place], [address] Basophils/100 WBC (Bld) 0.3 % Normal 0-1 [facility] Comment on above: Performed By: #### L 100.0100, L500.2500 ####[facility] [address] [place], [address] Eosinophils/100 WBC (Bld) 1.5 % Normal 0-5 [facility] Comment on above: Performed By: #### L 100.0100, L500.2500 ####[facility] [address] [place], [address] Erythrocyte distribution width (RBC) [Ratio] 13.0 % Normal 11.6-14.6 [facility] Comment on above: Performed By: #### L 100.0100, L500.2500 ####[facility] [address] [place], [address] Hematocrit (Bld) [Volume fraction] 35.9 % Low 37-47 [facility] Comment on above: Performed By: #### L 100.0100, L500.2500 ####[facility] [address] [place], [address] Hemoglobin (Bld) [Mass/Vol] 11.9 g/dL Low 12.0-15.0 [facility] Comment on above: Performed By: #### L 100.0100, L500.2500 ####[facility] [address] [place], [address] IG% 0.300 Normal 0.0-0.9 [facility] Comment on above: Result Comment: IG% - Immature Granulocytes (promyelocytes, myelocytes andmetamyelocytes) > 1% indicates that a LEFT SHIFT is Present. Performed By: #### L 100.0100, L500.2500 ####[facility] [address] [place], [address] Lymphocytes/100 WBC (Bld) 17.6 % Low 19-41 [facility] Comment on above: Performed By: #### L 100.0100, L500.2500 ####[facility] [address] [place], [address] MCH (RBC) [Entitic mass] 29.4 pg Normal 27.0-32.0 [facility] Comment on above: Performed By: #### L 100.0100, L500.2500 ####[facility] [address] [place], [address] MCHC (RBC) [Mass/Vol] 33.1 g/dL Normal 32-36 [facility] Comment on above: Performed By: #### L 100.0100, L500.2500 ####[facility] [address] [place], [address] MCV (RBC) [Entitic vol] 88.6 fL Normal 81-99 [facility] Comment on above: Performed By: #### L 100.0100, L500.2500 ####[facility] [address] [place], [address] Monocytes/100 WBC (Bld) 12.7 % High 0-10 [facility] Comment on above: Performed By: #### L 100.0100, L500.2500 ####[facility] [address] [place], [address] Neutrophils/100 WBC (Bld) 67.6 % Normal 47-70 [facility] Comment on above: Performed By: #### L 100.0100, L500.2500 ####[facility] [address] [place], [address] Nucleated RBC (Bld) [#/Vol] 0 10*3/uL Normal 0-5 [facility] Comment on above: Performed By: #### L 100.0100, L500.2500 ####[facility] [address] [place], [address] Platelet mean volume (Bld) [Entitic vol] 12.3 fL High 6.2-12.0 [facility] Comment on above: Performed By: #### L 100.0100, L500.2500 ####[facility] [address] [place], [address] Platelets (Bld) [#/Vol] 169 10*3/uL Normal 150-450 [facility] Comment on above: Performed By: #### L 100.0100, L500.2500 ####[facility] [address] [place], [address] RBC (Bld) [#/Vol] 4.05 10*6/uL Low 4.2-5.4 [facility] Comment on above: Performed By: #### L 100.0100, L500.2500 ####[facility] [address] [place], [address] RDW SD 42.2 fl Normal 35.1-43.9 [facility] Comment on above: Performed By: #### L 100.0100, L500.2500 ####[facility] [address] [place], [address] WBC (Bld) [#/Vol] 3.9 10*3/uL Low 4.4-11.0 [facility] Comment on above: Performed By: #### L 100.0100, L500.2500 ####[facility] [address] [place], [address] Carbon dioxide, total [Moles /volume] in Central venous bloodOrdered By: Amber Martino on 09-23-2024 CO2 [Moles/Vol] 21.6 mmol/L 21.0-32.0 [facility] Chloride assayOrdered By: Ludy Martino on 09-23-2024 Chloride [Moles/Vol] 106 mmol/L 98-108 [facility] Emergency Department Summary on 09-23-2024 Emergency Department Summary Normal [facility] Eosinophil percentageOrdered By: Amber Martino on 09-23-2024 Eosinophils/100 WBC (Bld) 1.5 % 0-5 [facility] Erythrocyte distribution wid th ratioOrdered By: Amber Martino on 09-23-2024 Erythrocyte distribution width (RBC) [Ratio] 13.0 % 11.6-14.6 [facility] Erythrocyte distribution wid th standard deviationOrdered By: Amber Martino on 09-23-2024 Erythrocyte distribution width (RBC) [Entitic vol] 42.2 fL 35.1-43.9 [facility] Erythrocyte distribution width (RBC) [Ratio] 42.2 fl 35.1-43.9 [facility] Estimation of creatinine kimberly aranceOrdered By: Amber Martino on 09-23-2024 Estimated Creatinine Clearance Calc 84.46 ml/min 50-250 [facility] GFR/1.73 sq M.predicted du g non-blacks MDRD (S/P/Bld) [Vol rate/Area]Ordered By: Amber Martino on 09-23-2024 Estimated GFR (MDRD) Non-Af Amer 88 >60 [facility] Comment on above: mL/min/1.73m2 CKD-EP I Creatinine Equation (2020) Glomerular filtration rate ( GFR) estimation/1.73 sq m using serum, plasma, or whole bOrdered By: Amber Martino on 09-23-2024 GFR/1.73 sq M.predicted among non-blacks MDRD (S/P/Bld) [Vol rate/Area] 88 mL/min/{1.73_m2} >60 [facility] Comment on above: mL/min/1.73m2 CKD-EP I Creatinine Equation (2020) Hematocrit Auto (Bld) [Volum e fraction]Ordered By: Amber Martino on 09-23-2024 Hematocrit (Bld) [Volume fraction] 35.9 % Low 37-47 [facility] Hemoglobin measurementOrdere d By: Amber Martino on 09-23-2024 Hemoglobin (Bld) [Mass/Vol] 11.9 g/dL Low 12.0-15.0 [facility] Immature granulocytes/100 WB C Auto (Bld)Ordered By: Amber Martino on 09-23-2024 Immature granulocytes/100 WBC (Bld) 0.300 % 0.0-0.9 [facility] Comment on above: IG% - Immature Granu locytes (promyelocytes, myelocytes and metamyelocytes) > 1% indicates that a LEFT SHIFT is Present. Lower GI hemoglobin IA Ql (S tl)Ordered By: Amber Martino on 09-23-2024 Stool Occult Blood (RABIA) Positive Abnormal [facility] Lymphocytes Auto (Unsp spec) [#/Vol]Ordered By: Amber Martino on 09-23-2024 Lymphocytes (Bld) [#/Vol] 0.69 10*3/uL Low 0.83-4.51 [facility] Lymphocytes/100 WBC Auto (Un sp spec)Ordered By: Amber Martino on 09-23-2024 Lymphocytes/100 WBC (Bld) 17.6 % Low 19-41 [facility] MCV (mean corpuscular volume ) determinationOrdered By: Amber Martino on 09-23-2024 MCV (RBC) [Entitic vol] 88.6 fL 81-99 [facility] Mean corpuscular hemoglobin (MCH) determinationOrdered By: Amber Martino on 09-23-2024 MCH (RBC) [Entitic mass] 29.4 pg 27.0-32.0 [facility] Mean corpuscular hemoglobin concentration (MCHC) determinationOrdered By: Amber Martino on 09-23-2024 MCHC (RBC) [Mass/Vol] 33.1 g/dL 32-36 [facility] Mean platelet volume determi nationOrdered By: Amber Martino on 09-23-2024 Platelet mean volume (Bld) [Entitic vol] 12.3 fL High 6.2-12.0 [facility] Monocyte percentageOrdered B y: Amber Martino on 09-23-2024 Monocytes/100 WBC (Bld) 12.7 % High 0-10 [facility] Neutrophil percentageOrdered By: Amber Martino on 09-23-2024 Neutrophils/100 WBC (Bld) 67.6 % 47-70 [facility] Nucleated red blood cell per centageOrdered By: Amber Martino on 09-23-2024 Nucleated RBC/100 WBC (Bld) [Ratio] 0 % 0-5 [facility] Platelet countOrdered By: Ludy Martino on 09-23-2024 Platelets (Bld) [#/Vol] 169 10*3/uL 150-450 [facility] Potassium (Unsp spec) [Mass/ Vol]Ordered By: Amber Martino on 09-23-2024 Potassium [Moles/Vol] 3.7 mmol/L 3.3-5.1 [facility] Potassium measurement (mass/ volume)Ordered By: Amber Martino on 09-23-2024 Potassium (Unsp spec) [Mass/Vol] 3.7 mmol/L 3.3-5.1 [facility] RBC Auto (Bld) [#/Vol]Ordere d By: Amber Martino on 09-23-2024 RBC (Bld) [#/Vol] 4.05 10*6/uL Low 4.2-5.4 [facility] Serum creatinine measurement (mass/volume)Ordered By: Amber Martino on 09-23-2024 Creatinine [Mass/Vol] 0.70 mg/dL 0.70-1.20 [facility] Serum glucose measurement (m ass/volume)Ordered By: Amber Martino on 09-23-2024 Glucose [Mass/Vol] 125 mg/dL High 70-99 [facility] Serum or plasma calcium zora urement (mass/volume)Ordered By: Amber Martino on 09-23-2024 Calcium [Mass/Vol] 8.5 mg/dL 7.6-11.0 [facility] Serum or plasma urea nitroge n measurement (mass/volume)Ordered By: Amber Martino on 09-23-2024 Urea nitrogen [Mass/Vol] 14 mg/dL 4-19 [facility] Sodium levelOrdered By: Amber Martino on 09-23-2024 Sodium [Moles/Vol] 139 mmol/L 133-145 [facility] Stool Occult Blood iFOBon STOB Positive Normal [facility] Comment on above: Performed By: #### M 100.7900 ####[facility] [address] [place], [place], [address] Stool gastrointestinal hemog lobin detection by immunologic methodOrdered By: Amber Martino on 09-23-2024 Lower GI hemoglobin IA Ql (Stl) Positive Abnormal [facility] White blood cell (WBC) count Ordered By: Amber Martino on 09-23-2024 WBC (Bld) [#/Vol] 3.9 10*3/uL Low 4.4-11.0 [facility] Urine Cultureon 09-22-2024 URC Mixed Gram Positive Organisms Mcloud Count 11,000-25,000 MIXC Mixed contaminants. Submit a new specimen if indicated. Normal [facility] Comment on above: Performed By: #### M 100.2200 ####[facility] [address] [place], [place], [id number] Anion gap in Serum or Plasma Ordered By: Holland Sanches on 09-21-2024 Anion gap [Moles/Vol] 14 mmol/L 5-15 [facility] BUN/creatinine ratioOrdered By: Holland Sanches on 09-21-2024 Urea nitrogen/Creatinine [Mass ratio] 29.0 mg/mg High 10- [facility] Basic Metabolic Profile (BMP )on 09-21-2024 BUN/CRE 29.0 RATIO High - [facility] Comment on above: Performed By: #### L 500.2500 ####[facility] [address] [place], [place], [id number] Calcium [Mass/Vol] 8.3 mg/dL Normal 7.6-11.0 [facility] Comment on above: Performed By: #### L 500.2500 ####[facility] [address] [place], [address] Chloride [Moles/Vol] 97 mmol/L Low 98-108 [facility] Comment on above: Performed By: #### L 500.2500 ####[facility] [address] [place], [address] CO2 [Moles/Vol] 20.7 mmol/L Low 21.0-32.0 [facility] Comment on above: Performed By: #### L 500.2500 ####[facility] [address] [place], [address] Creatinine [Mass/Vol] 1.24 mg/dL High 0.70-1.20 [facility] Comment on above: Performed By: #### L 500.2500 ####[facility] [address] [place], [address] ECRCL 54.31 ml/min Normal 50-250 [facility] Comment on above: Performed By: #### L 500.2500 ####[facility] [address] [place], [address] GAP 14 Normal 5-15 [facility] Comment on above: Performed By: #### L 500.2500 ####[facility] [address] [place], [address] GFR/1.73 sq M.predicted among non-blacks MDRD (S/P/Bld) [Vol rate/Area] 44 mL/min/{1.73_m2} Low >60 [facility] Comment on above: Result Comment: mL/m in/1.73m2 CKD-EPI Creatinine Equation (2020) Performed By: #### L 500.2500 ####[facility] [address] [place], [address] Glucose [Mass/Vol] 433 mg/dL High 70-99 [facility] Comment on above: Performed By: #### L 500.2500 ####[facility] [address] [place], [address] Potassium [Moles/Vol] 3.8 mmol/L Normal 3.3-5.1 [facility] Comment on above: Performed By: #### L 500.2500 ####[facility] [address] [place], [address] Sodium [Moles/Vol] 132 mmol/L Low 133-145 [facility] Comment on above: Performed By: #### L 500.2500 ####[facility] [address] [place], [address] Urea nitrogen [Mass/Vol] 36 mg/dL High 4-19 [facility] Comment on above: Performed By: #### L 500.2500 ####[facility] [address], [address] Bedside Glucoseon 09-21-2024 FINGERSTICK GLU 297 mg/dL High 74-106 [facility] Comment on above: Result Comment: MERCEDES GEMENT OF PATIENT CARE PER NURSING PROTOCOL Performed By: #### L 501.080 ####[facility] [address] [place], [address] FINGERSTICK GLU 428 mg/dL High 74-106 [facility] Comment on above: Result Comment: MERCEDES GEMENT OF PATIENT CARE PER NURSING PROTOCOL Performed By: #### L 501.080 ####[facility] [address] [place], [address] FINGERSTICK GLU 392 mg/dL High 74-106 [facility] Comment on above: Result Comment: MERCEDES GEMENT OF PATIENT CARE PER NURSING PROTOCOL Performed By: #### L 501.080 ####[facility] [address] [place], [address] CNPNon 09-21-2024 CNPN Normal [facility] Carbon dioxide, total [Moles /volume] in Central venous bloodOrdered By: Holland Sanches on 09-21-2024 CO2 [Moles/Vol] 20.7 mmol/L Low 21.0-32.0 [facility] Chloride assayOrdered By: Michael Sanches on 09-21-2024 Chloride [Moles/Vol] 97 mmol/L Low 98-108 [facility] Emergency Department Summary on 09-21-2024 Emergency Department Summary Normal [facility] Estimation of creatinine kimberly aranceOrdered By: Holland Sanches on 09-21-2024 Estimated Creatinine Clearance Calc 54.31 ml/min 50-250 [facility] GFR/1.73 sq M.predicted du g non-blacks MDRD (S/P/Bld) [Vol rate/Area]Ordered By: Holland Sanches on 09-21-2024 Estimated GFR (MDRD) Non-Af Amer 44 Low >60 [facility] Comment on above: mL/min/1.73m2 CKD-EP I Creatinine Equation (2020) Glomerular filtration rate ( GFR) estimation/1.73 sq m using serum, plasma, or whole bOrdered By: Holland Sanches on 09-21-2024 GFR/1.73 sq M.predicted among non-blacks MDRD (S/P/Bld) [Vol rate/Area] 44 mL/min/{1.73_m2} Low >60 [facility] Comment on above: mL/min/1.73m2 CKD-EP I Creatinine Equation (2020) Glucose measurement at bedsi deOrdered By: Holland Sanches on 09-21-2024 Bedside Glucose (Misc Panel) 297 mg/dL High 74-106 [facility] Comment on above: MANAGEMENT OF PATIEN T CARE PER NURSING PROTOCOL Glucose [Mass/Vol] 297 mg/dL High 74-106 [facility] Comment on above: MANAGEMENT OF PATIEN T CARE PER NURSING PROTOCOL Potassium (Unsp spec) [Mass/ Vol]Ordered By: Holland Sanches on 09-21-2024 Potassium [Moles/Vol] 3.8 mmol/L 3.3-5.1 [facility] Potassium measurement (mass/ volume)Ordered By: Holland Sanches on 09-21-2024 Potassium (Unsp spec) [Mass/Vol] 3.8 mmol/L 3.3-5.1 [facility] Serum creatinine measurement (mass/volume)Ordered By: Holland Sanches on 09-21-2024 Creatinine [Mass/Vol] 1.24 mg/dL High 0.70-1.20 [facility] Serum glucose measurement (m ass/volume)Ordered By: Holland Sanches on 09-21-2024 Glucose [Mass/Vol] 433 mg/dL High 70-99 [facility] Serum or plasma calcium zora urement (mass/volume)Ordered By: Holland Sanches on 09-21-2024 Calcium [Mass/Vol] 8.3 mg/dL 7.6-11.0 [facility] Serum or plasma urea nitroge n measurement (mass/volume)Ordered By: Holland Sanches on 09-21-2024 Urea nitrogen [Mass/Vol] 36 mg/dL High 4-19 [facility] Sodium levelOrdered By: Frank Sanches on 09-21-2024 Sodium [Moles/Vol] 132 mmol/L Low 133-145 [facility] Abdomen/Pelvis W IV Cont ONL Yon 09-20-2024 Abdomen/Pelvis W IV Cont ONLY Normal [facility] Absolute lymphocyte countOrd ered By: Lars Dahl on 09-20-2024 Lymphocytes Auto (Unsp spec) [#/Vol] 0.35 10*3/uL Low 0.83-4.51 [facility] Absolute neutrophil countOrd ered By: Lars Dahl on 09-20-2024 Neutrophils (Bld) [#/Vol] 8.5 10*3/uL High 2.0-7.7 [facility] Amorphous sediment detection in urine sediment by light microscopyOrdered By: Lars Dahl on 09-20-2024 Amorphous sediment LM Ql (Urine sed) 1+ URATE [facility] Anion gap in Serum or Plasma Ordered By: Lars Dahl on 09-20-2024 Anion gap [Moles/Vol] 14 mmol/L 5-15 [facility] Automated lymphocyte count a s percentage of total leukocytesOrdered By: Lars Dahl on 09-20-2024 Lymphocytes/100 WBC Auto (Unsp spec) 3.7 % Low 19-41 [facility] BUN/creatinine ratioOrdered By: Lars Dahl on 09-20-2024 Urea nitrogen/Creatinine [Mass ratio] 32.4 mg/mg High 10-20 [facility] Basophil percentageOrdered B y: Lars Dahl on 09-20-2024 Basophils/100 WBC (Bld) 0.2 % 0-1 [facility] Bedside Glucoseon 09-20-2024 FINGERSTICK GLU 128 mg/dL High 74-106 [facility] Comment on above: Result Comment: MERCEDES SUBRAMANIAN OF PATIENT CARE PER NURSING PROTOCOL Performed By: #### L 501.080 ####[facility] [address] [place], [address] Bilirubin Test strip Ql (U)O rdered By: Lars Dahl on 09-20-2024 Bilirubin Ql (U) 1 mg/dL High Negative [facility] Comment on above: COLOR OF URINE MAY A FFECT DIPSTICK RESULTS. Bilirubin, totalOrdered By: Lars Dahl on 09-20-2024 Bilirubin [Mass/Vol] 1.02 mg/dL 0.00-1.30 [facility] CBC W/Diff, Automatedon Absolute Lymph 0.35 X10 3/uL Low 0.83-4.51 [facility] Comment on above: Performed By: #### L 500.4050, L100.0100, L501.2450 ####[facility] [address] [place], [address] Absolute Neut 8.5 X10 3/uL High 2.0-7.7 [facility] Comment on above: Performed By: #### L 500.4050, L100.0100, L501.2450 ####[facility] [address] [place], [address] Basophils/100 WBC (Bld) 0.2 % Normal 0-1 [facility] Comment on above: Performed By: #### L 500.4050, L100.0100, L501.2450 ####[facility] [address] [place], [address] Eosinophils/100 WBC (Bld) 1.2 % Normal 0-5 [facility] Comment on above: Performed By: #### L 500.4050, L100.0100, L501.2450 ####[facility] [address] [place], [address] Erythrocyte distribution width (RBC) [Ratio] 12.8 % Normal 11.6-14.6 [facility] Comment on above: Performed By: #### L 500.4050, L100.0100, L501.2450 ####[facility] [address] [place], [address] Hematocrit (Bld) [Volume fraction] 41.4 % Normal 37-47 [facility] Comment on above: Performed By: #### L 500.4050, L100.0100, L501.2450 ####[facility] [address] [place], [address] Hemoglobin (Bld) [Mass/Vol] 13.8 g/dL Normal 12.0-15.0 [facility] Comment on above: Performed By: #### L 500.4050, L100.0100, L501.2450 ####[facility] [address] [place], [address] IG% 0.200 Normal 0.0-0.9 [facility] Comment on above: Result Comment: IG% - Immature Granulocytes (promyelocytes, myelocytes andmetamyelocytes) > 1% indicates that a LEFT SHIFT is Present. Performed By: #### L 500.4050, L100.0100, L501.2450 ####[facility] [address] [place], [address] Lymphocytes/100 WBC (Bld) 3.7 % Low 19-41 [facility] Comment on above: Performed By: #### L 500.4050, L100.0100, L501.2450 ####[facility] [address] [place], [address] MCH (RBC) [Entitic mass] 29.8 pg Normal 27.0-32.0 [facility] Comment on above: Performed By: #### L 500.4050, L100.0100, L501.2450 ####[facility] [address] [place], [address] MCHC (RBC) [Mass/Vol] 33.3 g/dL Normal 32-36 [facility] Comment on above: Performed By: #### L 500.4050, L100.0100, L501.2450 ####[facility] [address] [place], [address] MCV (RBC) [Entitic vol] 89.4 fL Normal 81-99 [facility] Comment on above: Performed By: #### L 500.4050, L100.0100, L501.2450 ####[facility] [address] [place], [address] Monocytes/100 WBC (Bld) 4.5 % Normal 0-10 [facility] Comment on above: Performed By: #### L 500.4050, L100.0100, L501.2450 ####[facility] [address] [place], [address] Neutrophils/100 WBC (Bld) 90.2 % High 47-70 [facility] Comment on above: Performed By: #### L 500.4050, L100.0100, L501.2450 ####[facility] [address] [place], [address] Nucleated RBC (Bld) [#/Vol] 0 10*3/uL Normal 0-5 [facility] Comment on above: Performed By: #### L 500.4050, L100.0100, L501.2450 ####[facility] [address] [place], [address] Platelet mean volume (Bld) [Entitic vol] 12.6 fL High 6.2-12.0 [facility] Comment on above: Performed By: #### L 500.4050, L100.0100, L501.2450 ####[facility] [address] [place], [address] Platelets (Bld) [#/Vol] 188 10*3/uL Normal 150-450 [facility] Comment on above: Performed By: #### L 500.4050, L100.0100, L501.2450 ####[facility] [address] [place], [address] RBC (Bld) [#/Vol] 4.63 10*6/uL Normal 4.2-5.4 [facility] Comment on above: Performed By: #### L 500.4050, L100.0100, L501.2450 ####[facility] [address] [place], [address] RDW SD 41.9 fl Normal 35.1-43.9 [facility] Comment on above: Performed By: #### L 500.4050, L100.0100, L501.2450 ####[facility] [address] [place], [address] WBC (Bld) [#/Vol] 9.4 10*3/uL Normal 4.4-11.0 [facility] Comment on above: Performed By: #### L 500.4050, L100.0100, L501.2450 ####[facility] [address] [place], [address] Carbon dioxide, total [Moles /volume] in Central venous bloodOrdered By: Lars Dahl on 09-20-2024 CO2 [Moles/Vol] 22.7 mmol/L 21.0-32.0 [facility] Chloride assayOrdered By: Lazaro Dahl on 09-20-2024 Chloride [Moles/Vol] 101 mmol/L 98-108 [facility] Comprehensive Metabolic Prof ilon 09-20-2024 Albumin [Mass/Vol] 3.9 g/dL Normal 3.4-4.8 [facility] Comment on above: Performed By: #### L 500.4050, L100.0100, L501.2450 ####[facility] [address], [address] Albumin/Globulin [Mass ratio] 1.3 {ratio} Normal 0.9-2.4 [facility] Comment on above: Performed By: #### L 500.4050, L100.0100, L501.2450 ####[facility] [address], [address] ALK PHOS 78 U/L Normal 35-104 [facility] Comment on above: Performed By: #### L 500.4050, L100.0100, L501.2450 ####[facility] [address] [place], [address] ALT [Catalytic activity/Vol] 17 U/L Normal <=34 [facility] Comment on above: Performed By: #### L 500.4050, L100.0100, L501.2450 ####[facility] [address] [place], [address] AST [Catalytic activity/Vol] 22 U/L Normal <=31 [facility] Comment on above: Performed By: #### L 500.4050, L100.0100, L501.2450 ####[facility] [address] [place], [address] Bilirubin [Mass/Vol] 1.02 mg/dL Normal 0.00-1.30 [facility] Comment on above: Performed By: #### L 500.4050, L100.0100, L501.2450 ####[facility] [address] [place], [address] BUN/CRE 32.4 RATIO High 10-20 [facility] Comment on above: Performed By: #### L 500.4050, L100.0100, L501.2450 ####[facility] [address] [place], [address] Calcium [Mass/Vol] 9.1 mg/dL Normal 7.6-11.0 [facility] Comment on above: Performed By: #### L 500.4050, L100.0100, L501.2450 ####[facility] [address] [place], [address] Chloride [Moles/Vol] 101 mmol/L Normal 98-108 [facility] Comment on above: Performed By: #### L 500.4050, L100.0100, L501.2450 ####[facility] [address] [place], [address] CO2 [Moles/Vol] 22.7 mmol/L Normal 21.0-32.0 [facility] Comment on above: Performed By: #### L 500.4050, L100.0100, L501.2450 ####[facility] [address] [place], [address] Creatinine [Mass/Vol] 0.86 mg/dL Normal 0.70-1.20 [facility] Comment on above: Performed By: #### L 500.4050, L100.0100, L501.2450 ####[facility] [address] [place], [address] GAP 14 Normal 5-15 [facility] Comment on above: Performed By: #### L 500.4050, L100.0100, L501.2450 ####[facility] [address], [address] GFR/1.73 sq M.predicted among non-blacks MDRD (S/P/Bld) [Vol rate/Area] 69 mL/min/{1.73_m2} Normal >60 [facility] Comment on above: Result Comment: mL/m in/1.73m2 CKD-EPI Creatinine Equation (2020) Performed By: #### L 500.4050, L100.0100, L501.2450 ####[facility] [address] [place], [address] Globulin (S) [Mass/Vol] 2.9 g/dL Normal 2.2-4.2 [facility] Comment on above: Performed By: #### L 500.4050, L100.0100, L501.2450 ####[facility] [address] [place], [address] Glucose [Mass/Vol] 153 mg/dL High 70-99 [facility] Comment on above: Performed By: #### L 500.4050, L100.0100, L501.2450 ####[facility] [address] [place], [address] Potassium [Moles/Vol] 4.1 mmol/L Normal 3.3-5.1 [facility] Comment on above: Performed By: #### L 500.4050, L100.0100, L501.2450 ####[facility] [address] [place], [address] Sodium [Moles/Vol] 138 mmol/L Normal 133-145 [facility] Comment on above: Performed By: #### L 500.4050, L100.0100, L501.2450 ####[facility] [address] [place], [address] T PROT 6.7 g/dL Normal 5.9-8.4 [facility] Comment on above: Performed By: #### L 500.4050, L100.0100, L501.2450 ####[facility] [address] [place], [address] Urea nitrogen [Mass/Vol] 28 mg/dL High 4-19 [facility] Comment on above: Performed By: #### L 500.4050, L100.0100, L501.2450 ####[facility] [address] [place], [place], [address] Emergency Department Summary on 09-20-2024 Emergency Department Summary Normal [facility] Eosinophil percentageOrdered By: Lars Dahl on 09-20-2024 Eosinophils/100 WBC (Bld) 1.2 % 0-5 [facility] Epithelial cells.squamous LM Ql (Urine sed)Ordered By: Lars Dahl on 09-20-2024 Epithelial cells.squamous LM.HPF (Urine sed) [#/Area] 0 /[HPF] 5-10 [facility] Erythrocyte distribution wid th ratioOrdered By: Lars Dahl on 09-20-2024 Erythrocyte distribution width (RBC) [Ratio] 12.8 % 11.6-14.6 [facility] Erythrocyte distribution wid th standard deviationOrdered By: Lars Dahl on 09-20-2024 Erythrocyte distribution width (RBC) [Entitic vol] 41.9 fL 35.1-43.9 [facility] Erythrocyte distribution width (RBC) [Ratio] 41.9 fl 35.1-43.9 [facility] GFR/1.73 sq M.predicted du g non-blacks MDRD (S/P/Bld) [Vol rate/Area]Ordered By: Lars Dahl on 09-20-2024 Estimated GFR (MDRD) Non-Af Amer 69 >60 [facility] Comment on above: mL/min/1.73m2 CKD-EP I Creatinine Equation (2020) Glomerular filtration rate ( GFR) estimation/1.73 sq m using serum, plasma, or whole bOrdered By: Lars Dahl on 09-20-2024 GFR/1.73 sq M.predicted among non-blacks MDRD (S/P/Bld) [Vol rate/Area] 69 mL/min/{1.73_m2} >60 [facility] Comment on above: mL/min/1.73m2 CKD-EP I Creatinine Equation (2020) Glucose Ql (U)Ordered By: Lazaro Dahl on 09-20-2024 Urine Glucose (UA) Normal mg/dl Normal [facility] deOrdered By: Lars Dahl on 09-20-2024 Bedside Glucose (Misc Panel) 128 mg/dL High 74-106 [facility] Comment on above: MANAGEMENT OF PATIEN T CARE PER NURSING PROTOCOL Glucose [Mass/Vol] 128 mg/dL High 74-106 [facility] Comment on above: MANAGEMENT OF PATIEN T CARE PER NURSING PROTOCOL Hematocrit Auto (Bld) [Volum e fraction]Ordered By: Lars Dahl on 09-20-2024 Hematocrit (Bld) [Volume fraction] 41.4 % 37-47 [facility] Hemoglobin measurementOrdere d By: Lars Dahl on 09-20-2024 Hemoglobin (Bld) [Mass/Vol] 13.8 g/dL 12.0-15.0 [facility] Immature granulocytes/100 WB C Auto (Bld)Ordered By: Lars Dahl on 09-20-2024 Immature granulocytes/100 WBC (Bld) 0.200 % 0.0-0.9 [facility] Comment on above: IG% - Immature Granu locytes (promyelocytes, myelocytes and metamyelocytes) > 1% indicates that a LEFT SHIFT is Present. Influenza virus A and B and SARS-CoV-2 (COVID-19) and Respiratory syncytial virus RNAOrdered By: Lars Dahl on 09-20-2024 SARS-CoV-2 (COVID-19) RNA RAYMOND+probe Ql (Unsp spec) [facility] SARS-CoV-2 (COVID-19) RNA RAYMOND+probe Ql (Unsp spec) [facility] Ketones Test strip Ql (U)Ord ered By: Lars Dahl on 09-20-2024 Ketones Ql (U) 5 mg/dl High Negative [facility] Laboratory - Chemistry and C hemistry - challengeOrdered By: Lars Dahl on 09-20-2024 AST [Catalytic activity/Vol] 22 U/L <32 [facility] Lipaseon 09-20-2024 Lipase [Catalytic activity/Vol] 12 U/L Low 13-75 [facility] Comment on above: Result Comment: Jeffrey quintana note:LIPASE revised reference range effective 22.New Lipase methodology. Expected to produce lower valuesthan the previous assay method.NEW Reference Range: 13 - 75 U/L Performed By: #### L 500.4050, L100.0100, L501.2450 ####[facility] [address] [place], [place], [address] Lipase measurementOrdered By : Lars Dahl on 09-20-2024 Lipase [Catalytic activity/Vol] 12 U/L Low 13-75 [facility] Comment on above: Please note:LIPASE r evised reference range effective 22. New Lipase methodology. Expected to produce lower values than the previous assay method. NEW Reference Range: 13 - 75 U/L Lymphocytes Auto (Unsp spec) [#/Vol]Ordered By: Lars Dahl on 09-20-2024 Lymphocytes (Bld) [#/Vol] 0.35 10*3/uL Low 0.83-4.51 [facility] Lymphocytes/100 WBC Auto (Un sp spec)Ordered By: Lars Dahl on 09-20-2024 Lymphocytes/100 WBC (Bld) 3.7 % Low 19-41 [facility] M100.678on 09-20-2024 M100.678 Pending SARS-CoV-2 (COVID 19) Negative INFLUENZA A Negative INFLUENZA B Negative RSV PCR Negative Normal [facility] Comment on above: Performed By: #### M 100.678 ####[facility] [address] [place], [address] MCV (mean corpuscular volume ) determinationOrdered By: Lars Dahl on 09-20-2024 MCV (RBC) [Entitic vol] 89.4 fL 81-99 [facility] Mean corpuscular hemoglobin (MCH) determinationOrdered By: Lars Dahl on 09-20-2024 MCH (RBC) [Entitic mass] 29.8 pg 27.0-32.0 [facility] Mean corpuscular hemoglobin concentration (MCHC) determinationOrdered By: Lars Dahl on 09-20-2024 MCHC (RBC) [Mass/Vol] 33.3 g/dL 32-36 [facility] Mean platelet volume determi nationOrdered By: Lars Dahl on 09-20-2024 Platelet mean volume (Bld) [Entitic vol] 12.6 fL High 6.2-12.0 [facility] Microscopic analysis of urin e for red blood cells (RBC)Ordered By: Lars Dahl on 09-20-2024 Microscopic analysis of urine for red blood cells (RBC) 0 SEEN /hpf 0-5 [facility] Urine RBC 0 SEEN /hpf 0-5 [facility] Monocyte percentageOrdered B y: Lars Dahl on 09-20-2024 Monocytes/100 WBC (Bld) 4.5 % 0-10 [facility] Mucus LM Ql (Urine sed)Order ed By: Lars Dahl on 09-20-2024 Mucus Ql (Urine sed) 0 SEEN /hpf [facility] Neutrophil percentageOrdered By: Lars Dahl on 09-20-2024 Neutrophils/100 WBC (Bld) 90.2 % High 47-70 [facility] Nitrite Test strip Ql (U)Ord ered By: Lars Dahl on 09-20-2024 Nitrite Ql (U) Negative Negative [facility] No Panel InformationOrdered By: Lars Dahl on 09-20-2024 22 U/L <32 [facility] Nucleated red blood cell per centageOrdered By: Lars Dahl on 09-20-2024 Nucleated RBC/100 WBC (Bld) [Ratio] 0 % 0-5 [facility] Platelet countOrdered By: Lazaro Dahl on 09-20-2024 Platelets (Bld) [#/Vol] 188 10*3/uL 150-450 [facility] Potassium (Unsp spec) [Mass/ Vol]Ordered By: Lars Dahl on 09-20-2024 Potassium [Moles/Vol] 4.1 mmol/L 3.3-5.1 [facility] Potassium measurement (mass/ volume)Ordered By: Lars Dahl on 09-20-2024 Potassium (Unsp spec) [Mass/Vol] 4.1 mmol/L 3.3-5.1 [facility] Protein Test strip Ql (U)Ord ered By: Lars Dahl on 09-20-2024 Protein Ql (U) 30 mg/dl High Negative [facility] RBC Auto (Bld) [#/Vol]Ordere d By: Lras Dahl on 09-20-2024 RBC (Bld) [#/Vol] 4.63 10*6/uL 4.2-5.4 [facility] Serum creatinine measurement (mass/volume)Ordered By: Lars Dahl on 09-20-2024 Creatinine [Mass/Vol] 0.86 mg/dL 0.70-1.20 [facility] Serum globulin measurementOr dered By: Lars Dahl on 09-20-2024 Globulin (S) [Mass/Vol] 2.9 g/dL 2.2-4.2 [facility] Serum glucose measurement (m ass/volume)Ordered By: Lars Dahl on 09-20-2024 Glucose [Mass/Vol] 153 mg/dL High 70-99 [facility] Serum or plasma alanine ramírez otransferase (ALT) measurementOrdered By: Lars Dahl on 09-20-2024 ALT [Catalytic activity/Vol] 17 U/L <35 [facility] Serum or plasma albumin zora urement (mass/volume)Ordered By: Lars Dahl on 09-20-2024 Albumin [Mass/Vol] 3.9 g/dL 3.4-4.8 [facility] Serum or plasma albumin/glob ulin mass ratioOrdered By: Lars Dahl on 09-20-2024 Albumin/Globulin [Mass ratio] 1.3 {ratio} 0.9-2.4 [facility] Serum or plasma alkaline dhiraj sphatase measurementOrdered By: Lars Dahl on 09-20-2024 ALP [Catalytic activity/Vol] 78 U/L 35-104 [facility] Serum or plasma calcium zora urement (mass/volume)Ordered By: Lars Dahl on 09-20-2024 Calcium [Mass/Vol] 9.1 mg/dL 7.6-11.0 [facility] Serum or plasma urea nitroge n measurement (mass/volume)Ordered By: Lars Dahl on 09-20-2024 Urea nitrogen [Mass/Vol] 28 mg/dL High 4-19 [facility] Sodium levelOrdered By: Jorge Dahl on 09-20-2024 Sodium [Moles/Vol] 138 mmol/L 133-145 [facility] Squamous epithelial cells de tection in urine sediment by light microscopyOrdered By: Lars Dahl on 09-20-2024 Epithelial cells.squamous LM Ql (Urine sed) 0-5 SEEN /hpf 5-10 [facility] Total proteinOrdered By: Davion Dahl on 09-20-2024 Protein [Mass/Vol] 6.7 g/dL 5.9-8.4 [facility] Urinalysis, Completeon 09-20 AMORPHOUS 1+ URATE Normal [facility] Comment on above: Order Comment: CLEAN CATCH Performed By: #### L 400.0001 ####[facility] [address] [facility] [address] EPI,SQUAMOUS 0-5 SEEN Normal 5-10 [facility] Comment on above: Order Comment: CLEAN CATCH Performed By: #### L 400.0001 ####[facility] [address] [place], [address] RBC 0 SEEN Normal 0-5 [facility] Comment on above: Order Comment: CLEAN CATCH Performed By: #### L 400.0001 ####[facility] [address] [facility] [address] WBC 25-50 SEEN Normal 0-5 [facility] Comment on above: Order Comment: CLEAN CATCH Performed By: #### L 400.0001 ####[facility] [address] [place], [address] BACTERIA 0 SEEN Normal None Seen [facility] Comment on above: Order Comment: CLEAN CATCH Performed By: #### L 400.0001 ####[facility] [address] [place], [address] Mucus Ql (Urine sed) 0 SEEN Normal [facility] Comment on above: Order Comment: CLEAN CATCH Performed By: #### L 400.0001 ####[facility] [address] [place], [place], [id number] Urine blood detectionOrdered By: Lars Dahl on 09-20-2024 Urine Occult Blood Negative Negative [facility] Urine clarityOrdered By: Davion Dahl on 09-20-2024 Clarity (U) Sl. Cloudy Clear [facility] Urine color determinationOrd ered By: Lars Dahl on 09-20-2024 Color (U) Yellow Yellow [facility] Urine cultureOrdered By: Davion Dahl on 09-20-2024 Bacteria identified Cx Nom (U) Positive Abnormal [facility] Urine glucose detectionOrder ed By: Lars Dahl on 09-20-2024 Glucose Ql (U) Normal mg/dl Normal [facility] Urine leukocyte esterase det ection by dipstickOrdered By: Lars Dahl on 09-20-2024 Leukocyte esterase Test strip Ql (U) 500 /ul High Negative [facility] Urine pHOrdered By: Lars laura on 09-20-2024 pH (U) 6.0 [pH] 5.0 - 8.0 [facility] Urine sediment bacteria coun t by microscopy (number/high power field)Ordered By: Lars Dahl on 09-20-2024 Bacteria LM.HPF (Urine sed) [#/Area] 0 /[HPF] None Seen [facility] Urine specific gravity measu rementOrdered By: Lars Dahl on 09-20-2024 Specific gravity (U) [Rel density] 1.025 1.002-1.030 [facility] Urine urobilinogen measureme ntOrdered By: Lars Dahl on 09-20-2024 Urobilinogen Ql (U) Normal mg/dl Normal [facility] Urobilinogen Ql (U)Ordered B y: Lars Dahl on 09-20-2024 Urine Urobilinogen Normal mg/dl Normal [facility] White blood cell (WBC) count Ordered By: Lars Dahl on 09-20-2024 WBC (Bld) [#/Vol] 9.4 10*3/uL 4.4-11.0 [facility] White blood cell countOrdere d By: Lars Dahl on 09-20-2024 Urine WBC 25-50 SEEN /hpf 0-5 [facility] White blood cell count 25-50 SEEN /hpf 0-5 [facility] CNPNon 09-10-2024 CNPN Normal [facility] CNPNon 09-06-2024 CNPN Normal [facility] CNPNon 09-04-2024 CNPN Normal [facility] ALBUMIN/CREATININE RATIO, UR INEon 08-20-2024 Albumin DL <= 20 mg/L (U) [Mass/Vol] mg/dL Normal [facility] Comment on above: Order Comment: Speci men Type: URINE SPECIMENOrdering Facility: [facility] Address: [address] [place] [address] Performed By: #### U ACR ####[facility] LABCLIA [id number] [place] [address] [place] Albumin/Creatinine (U) [Mass ratio] Normal [facility] Comment on above: Order Comment: Speci men Type: URINE SPECIMENOrdering Facility: [facility] Address: [address] [place] [address] Result Comment: Not calculatedAdult Male and Female Nephrotic Criteria:<30 mg/g is considered normal to mildly prmbwsmry00-864 mg/g is considered moderately increased>300 mg/g is considered severely increasedKDIGO. (2013). KDIGO 2012 Clinical Practice Guideline for the Evaluation and Management of Chronic Kidney Disease. Official Journal of the International Society of Nephrology, 3(1), 1-150. Performed By: #### U ACR ####[facility] LABCLIA [id number] [place] [address] [place] Creatinine (U) [Mass/Vol] 24.5 mg/dL Normal 20.0-300.0 [facility] Comment on above: Order Comment: Speci men Type: URINE SPECIMENOrdering Facility: [facility] Address: [address] [place] [address] Performed By: #### U ACR ####[facility] LABCLIA [id number] [facility] [id number] [id number] [place] Comprehensive metabolic 2000 panelon 08-20-2024 Albumin [Mass/Vol] 4.2 g/dL Normal 3.9-4.9 [facility] Comment on above: Order Comment: Speci men Type: BLOOD SPECIMENOrdering Facility: [facility] Address: [address] [place] [address] Performed By: #### 2 4323-8 ####[facility] [id number] [place] [address] [place] ALP [Catalytic activity/Vol] 83 U/L Normal 34-123 [facility] Comment on above: Order Comment: Speci men Type: BLOOD SPECIMENOrdering Facility: [facility] Address: [address] [place] [address] Performed By: #### 2 4323-8 ####[facility] [id number] [place] [address] [place] ALT [Catalytic activity/Vol] 15 U/L Normal 7-38 [facility] Comment on above: Order Comment: Speci men Type: BLOOD SPECIMENOrdering Facility: [facility] Address: [address] [place] [address] Performed By: #### 2 4323-8 ####[facility] [id number] [place] [address] [place] Anion gap [Moles/Vol] 9 mmol/L Normal 8-15 [facility] Comment on above: Order Comment: Speci men Type: BLOOD SPECIMENOrdering Facility: [facility] Address: [address] [place] [address] Performed By: #### 2 4323-8 ####[facility]ITAL[facility]CLIA [id number] [place] [address] [place] AST [Catalytic activity/Vol] 18 U/L Normal 13-35 [facility] Comment on above: Order Comment: Speci men Type: BLOOD SPECIMENOrdering Facility: [facility] Address: [address] [place] [address] Performed By: #### 2 4323-8 ####[facility] [id number] [place] [address] [place] Bilirubin [Mass/Vol] 1.0 mg/dL Normal 0.2-1.3 [facility] Comment on above: Order Comment: Speci men Type: BLOOD SPECIMENOrdering Facility: [facility] Address: [address] [place] [address] Performed By: #### 2 4323-8 ####[facility] [id number] [place] [address] [place] Calcium [Mass/Vol] 9.8 mg/dL Normal 8.5-10.2 [facility] Comment on above: Order Comment: Speci men Type: BLOOD SPECIMENOrdering Facility: [facility] Address: [address] [place] [address] Performed By: #### 2 4323-8 ####[facility] [id number] [place] [address] [place] Chloride [Moles/Vol] 103 mmol/L Normal 98-107 [facility] Comment on above: Order Comment: Speci men Type: BLOOD SPECIMENOrdering Facility: [facility] Address: [address] [place] [address] Performed By: #### 2 4323-8 ####[facility] [id number] [place] [address] [place] CO2 [Moles/Vol] 27 mmol/L Normal 22-30 [facility] Comment on above: Order Comment: Speci men Type: BLOOD SPECIMENOrdering Facility: [facility] Address: [address] [place] [address] Performed By: #### 2 4323-8 ####[facility] [id number] [place] [address] [place] Creatinine [Mass/Vol] 0.71 mg/dL Normal 0.58-0.96 [facility] Comment on above: Order Comment: Ruma deluna Type: BLOOD SPECIMENOrdering Facility: [facility] Address: [address] [place] [address] Performed By: #### 2 4323-8 ####[facility] [id number] [place] [address] [place] Creatinine and Glomerular filtration rate.predicted panel (S/P/Bld) 87 mL/min/1.73m??? Normal >=60 [facility] Comment on above: Order Comment: Ruma deluna Type: BLOOD SPECIMENOrdering Facility: [facility] Address: [address] [place] [address] Result Comment: Judith mated Glomerular Filtration Rate [...] Performed By: #### 2 4323-8 ####[facility] [id number] [place] [address] [place] Glucose [Mass/Vol] 149 mg/dL High 74-99 [facility] Comment on above: Order Comment: Ruma deluna Type: BLOOD SPECIMENOrdering Facility: [facility] Address: [address] [place] [address] Result Comment: The [place] Diabetes Association (ADA) provides guidance for cutoff [...] Standards of Medical Care in Diabetes 2016, [place] Diabetes Association. Diabetes Care. 2016.39(Suppl 1). Performed By: #### 2 4323-8 ####[facility] MILLTOWNCLIA [id number] [place] [address] [place] Potassium [Moles/Vol] 4.1 mmol/L Normal 3.7-5.1 [facility] Comment on above: Order Comment: Speci men Type: BLOOD SPECIMENOrdering Facility: [facility] Address: [address] [place] [address] Performed By: #### 2 4323-8 ####[facility]ENTERWNCLIA [id number] [place] [address] [place] Protein [Mass/Vol] 7.1 g/dL Normal 6.3-8.0 [facility] Comment on above: Order Comment: Speci men Type: BLOOD SPECIMENOrdering Facility: [facility] Address: [address] [place] [address] Performed By: #### 2 4323-8 ####[facility]ENTERWNCLIA [id number] [place] [address] [place] Sodium [Moles/Vol] 139 mmol/L Normal 136-144 [facility] Comment on above: Order Comment: Speci men Type: BLOOD SPECIMENOrdering Facility: [facility] Address: [address] [place] [address] Performed By: #### 2 4323-8 ####[facility] MILLWNCLIA [id number] [place] [address] [place] Urea nitrogen [Mass/Vol] 22 mg/dL High 7-21 [facility] Comment on above: Order Comment: Ruma deluna Type: BLOOD SPECIMENOrdering Facility: [facility] Address: [address] [place] [address] Performed By: #### 2 4323-8 ####[facility] [id number] [place] [address] [place] HbA1c (Bld)on 08-20-2024 Average glucose Estimated from glycated hemoglobin (Bld) [Mass/Vol] 157 mg/dL Normal [facility] Comment on above: Order Comment: Ruma deluna Type: BLOOD SPECIMENOrdering Facility: [facility] Address: [address] [place] [address] Result Comment: eAG: (Estimated average glucose) is a calculated value from HgbA1c and is industrial sales representative of the average blood glucose level in the last 2-3 month period. Performed By: #### 5 5454-3 ####[facility] LABIA [id number] [place] [address] [place] [facility] HbA1c (Bld) [Mass fraction] 7.1 % High 4.3-5.6 [facility] Comment on above: Order Comment: Ruma deluna Type: BLOOD SPECIMENOrdering Facility: [facility] Address: [address] [place] [address] Result Comment: [place] Diabetes Association guidelines indicate that patients with HgbA1c in the range 5.7-6.4% are at increased risk for development of diabetes, and intervention by lifestyle modification may be beneficial. HgbA1c greater or equal to 6.5% is considered diagnostic of diabetes. Performed By: #### 5 5454-3 ####[facility] LABIA [id number] [place] [address] [place] LIPID PANEL, NONFASTINGon Cholesterol [Mass/Vol] 197 mg/dL Normal <200 [facility] Comment on above: Order Comment: Ruma deluna Type: BLOOD SPECIMENOrdering Facility: [facility] Address: [address] [place] [address] Result Comment: <200 mg/dL, Desirable 200-239 mg/dL, Borderline high>239 mg/dL, High Performed By: #### L IPNF ####[facility] LABCLIA [id number] [place] [address] [place] HDL CHOLESTEROL, NF 59 mg/dL Normal >39 [facility] Comment on above: Order Comment: Speci men Type: BLOOD SPECIMENOrdering Facility: [facility] Address: [address] [place] [address] Result Comment: 40-5 9 mg/dL, Acceptable>59 mg/dL, High: Negative risk factor for coronary heart disease<40 mg/dL, Low: Positive risk factor for coronary heart disease Performed By: #### L IPNF ####[facility] LABCLIA [id number] [place] [address] [place] LDL CHOLESTEROL, NF 120 mg/dL High <100 [facility] Comment on above: Order Comment: Marilui men Type: BLOOD SPECIMENOrdering Facility: [facility] Address: [address] [place] [address] Result Comment: <100 mg/dL, Optimal 100-129 mg/dL, Near optimal/above optimal 130-159 mg/dL, Borderline high 160-189 mg/dL, High>189 mg/dL, Very highSecondary prevention optimal LDL Cholesterol levels are recommended to be < 70 mg/dL Performed By: #### L IPNF ####[facility] LABCLIA [id number] [place] [address] [place] LDL/HDL RATIO, NF 2.03 mg/dL Normal <2.54 [facility] Comment on above: Order Comment: Marilui men Type: BLOOD SPECIMENOrdering Facility: [facility] Address: [address] [place] [address] Result Comment: Refe rence:1. National Cholesterol Education Program ATP III Guideline At-A-Glance Quick Desk Reference: National Heart, Lung, and Blood [place]. National Institutes of Health. 2001: NIH Publication No. 01-3305.2. An International Atherosclerosis Society position paper: global recommendations for the management of dyslipidemia: executive summary, Atherosclerosis. 2014: 232(2):410-413. Performed By: #### L IPNF ####[facility] LABCLIA [id number] [address] [place] NON HDL CHOL, NF 138 mg/dL High <130 [facility] Comment on above: Order Comment: Speci men Type: BLOOD SPECIMENOrdering Facility: [facility] Address: [address] [place] [address] Result Comment: <130 mg/dL, Optimal 130-159 mg/dL, Near optimal/above optimal 160-189 mg/dL, Borderline high 190-219 mg/dL, High>219 mg/dL, Very highSecondary prevention optimal non HDL Cholesterol levels are recommended to be <100 mg/dL Performed By: #### L IPNF ####[facility] LABCLIA [id number] [address] T CHOL/HDL RATIO NF 3.34 mg/dL Normal <5.10 [facility] Comment on above: Order Comment: Ruma deluna Type: BLOOD SPECIMENOrdering Facility: [facility] Address: [address] [place] [address] Performed By: #### L IPNF ####[facility] LABCLIA [id number] [place] [address] [place] TRIGLYCERIDES, NF 92 mg/dL Normal <150 [facility] Comment on above: Order Comment: Ruma [facility] Type: BLOOD SPECIMENOrdering Facility: [facility] Address: [address] [place] [address] Result Comment: <150 mg/dL, Normal 150-199 mg/dL, Borderline high 200-499 mg/dL, High>499 mg/dL, Very high Performed By: #### L IPNF ####[facility] LABCLIA [id number] [address] [address] [place] VLDL CHOLESTEROL, NF 18 mg/dL Normal <30 [facility] Comment on above: Order Comment: Speci men Type: BLOOD SPECIMENOrdering Facility: [facility] Address: [address] [place] [address] Performed By: #### L IPNF ####[facility] LABCLIA [id number] [address] [place] CNPTOUTREACHon 08-17-2024 CNPTOUTREACH Normal [facility] CNPNon 08-08-2024 CNPN Normal [facility] CNPNon 08-01-2024 CNPN Normal [facility] 12 Lead EKGon 07-28-2024 12 Lead EKG Normal [facility] Absolute neutrophil countOrd ered By: Amber Martino on 07-28-2024 Neutrophils (Bld) [#/Vol] 5.1 10*3/uL 2.0-7.7 [facility] Basic Metabolic Profile (BMP )on 07-28-2024 BUN/CRE 18.1 RATIO Normal 10-20 [facility] Comment on above: Order Comment: 'TROP ' Serial specimen #1, #2 or #3: 1 Performed By: #### L 501.4020, L100.0100, L500.2500 ####[facility] [address] [place], [address] [place],Total 9.3 mg/dL Normal 8.5-10.1 [facility] Comment on above: Order Comment: 'TROP ' Serial specimen #1, #2 or #3: 1 Performed By: #### L 501.4020, L100.0100, L500.2500 ####[facility] [address] [place], [address] Chloride [Moles/Vol] 103 mmol/L Normal 98-107 [facility] Comment on above: Order Comment: 'TROP ' Serial specimen #1, #2 or #3: 1 Performed By: #### L 501.4020, L100.0100, L500.2500 ####[facility] [address] [place], [address] CO2 [Moles/Vol] 25.0 mmol/L Normal 21.0-32.0 [facility] Comment on above: Order Comment: 'TROP ' Serial specimen #1, #2 or #3: 1 Performed By: #### L 501.4020, L100.0100, L500.2500 ####[facility] [address] [place], [address] Creatinine [Mass/Vol] 1.05 mg/dL High 0.55-1.02 [facility] Comment on above: Order Comment: 'TROP ' Serial specimen #1, #2 or #3: 1 Result Comment: The validity of the calculated GFR GFRAA in patients over70 years has not been determined. Clinical correlation isessential. Performed By: #### L 501.4020, L100.0100, L500.2500 ####[facility] [address] [place], [address] ECRCL 66.56 ml/min Normal [facility] Comment on above: Order Comment: 'TROP ' Serial specimen #1, #2 or #3: 1 Performed By: #### L 501.4020, L100.0100, L500.2500 ####[facility] [address] [place], [address] EST GFR - AA 65 mL/min Normal >60 [facility] Comment on above: Order Comment: 'TROP ' Serial specimen #1, #2 or #3: 1 Result Comment: Afri can [place] GFR Calc Performed By: #### L 501.4020, L100.0100, L500.2500 ####[facility] [address] [place], [address] GAP 6 Normal 5-15 [facility] Comment on above: Order Comment: 'TROP ' Serial specimen #1, #2 or #3: 1 Performed By: #### L 501.4020, L100.0100, L500.2500 ####[facility] [address] [place], [address] GFR/1.73 sq M.predicted among non-blacks MDRD (S/P/Bld) [Vol rate/Area] 54 mL/min/{1.73_m2} Low >60 [facility] Comment on above: Order Comment: 'TROP ' Serial specimen #1, #2 or #3: 1 Result Comment: Non- GFR Calc Performed By: #### L 501.4020, L100.0100, L500.2500 ####[facility] [address] [place], [address] Glucose [Mass/Vol] 197 mg/dL High 74-106 [facility] Comment on above: Order Comment: 'TROP ' Serial specimen #1, #2 or #3: 1 Result Comment: Fast ing Glucose result greater than or equal to 126 mg/dLsuggests DIABETES MELLITUS per A.D.A. criteria. Performed By: #### L 501.4020, L100.0100, L500.2500 ####[facility] [address] [place], [address] Potassium [Moles/Vol] 4.6 mmol/L Normal 3.5-5.1 [facility] Comment on above: Order Comment: 'TROP ' Serial specimen #1, #2 or #3: 1 Performed By: #### L 501.4020, L100.0100, L500.2500 ####[facility] [address] [place], [address] Sodium [Moles/Vol] 134 mmol/L Low 136-145 [facility] Comment on above: Order Comment: 'TROP ' Serial specimen #1, #2 or #3: 1 Performed By: #### L 501.4020, L100.0100, L500.2500 ####[facility] [address] [place], [address] Urea nitrogen [Mass/Vol] 19 mg/dL High 7-18 [facility] Comment on above: Order Comment: 'TROP ' Serial specimen #1, #2 or #3: 1 Performed By: #### L 501.4020, L100.0100, L500.2500 ####[facility] [address] [place], [place], [address] Basophil percentageOrdered B y: Amber Martino on 07-28-2024 Basophils/100 WBC (Bld) 0.7 % 0-1 [facility] Bilirubin Test strip Ql (U)O rdered By: Amber Martino on 07-28-2024 Bilirubin Ql (U) Negative Negative [facility] Blood urea nitrogen (BUN)/cr eatinine ratioOrdered By: Amber Martino on 07-28-2024 Urea nitrogen/Creatinine [Mass ratio] 18.1 mg/mg 10-20 [facility] CBC W/Diff, Automatedon 07-18 PLT EST ADEQUATE Normal ADEQ [facility] Comment on above: Performed By: #### L 501.4020, L100.0100, L500.2500 ####[facility] [address] [place], [place], [address] Carbon dioxide measurementOr dered By: Amber Martino on 07-28-2024 CO2 [Moles/Vol] 25.0 mmol/L 21.0-32.0 [facility] Chloride measurementOrdered By: Amber Martino on 07-28-2024 Chloride [Moles/Vol] 103 mmol/L 98-107 [facility] Emergency Department Summary on 07-28-2024 Emergency Department Summary Normal [facility] Eosinophil percentageOrdered By: Amber Martino on 07-28-2024 Eosinophils/100 WBC (Bld) 4.5 % 0-5 [facility] Epithelial cells.squamous LM Ql (Urine sed)Ordered By: Amber Martino on 07-28-2024 Epithelial cells.squamous LM.HPF (Urine sed) [#/Area] 0 /[HPF] 5-10 [facility] Erythrocyte distribution wid th ratioOrdered By: Amber Martino on 07-28-2024 Erythrocyte distribution width (RBC) [Ratio] 12.6 % 11.6-14.6 [facility] Erythrocyte distribution wid th standard deviationOrdered By: Amber Martino on 07-28-2024 Erythrocyte distribution width (RBC) [Entitic vol] 40.6 fL 35.1-43.9 [facility] Estimated glomerular filtrat ion rate (GFR) AmericanOrdered By: Amber Martino on 07-28-2024 Estimated GFR (MDRD) Amer 65 mL/min >60 [facility] Comment on above: GFR Calc Estimation of creatinine kimberly aranceOrdered By: Amber Martino on 07-28-2024 Estimated Creatinine Clearance Calc 66.56 ml/min [facility] Glomerular filtration rate ( GFR) estimationOrdered By: Amber Martino on 07-28-2024 Estimated GFR (MDRD) Non-Af Amer 54 mL/min Low >60 [facility] Comment on above: Non- GFR Calc Glucose Ql (U)Ordered By: Ludy Martino on 07-28-2024 Urine Glucose (UA) Normal mg/dl Normal [facility] Glucose measurementOrdered B y: Amber Martino on 07-28-2024 Glucose [Mass/Vol] 197 mg/dL High 74-106 [facility] Comment on above: Fasting Glucose resu lt greater than or equal to 126 mg/dL suggests DIABETES MELLITUS per A.D.A. criteria. Hematocrit Auto (Bld) [Volum e fraction]Ordered By: Amber Martino on 07-28-2024 Hematocrit (Bld) [Volume fraction] 41.0 % 37-47 [facility] Hemoglobin measurementOrdere d By: Amber Martino on 07-28-2024 Hemoglobin (Bld) [Mass/Vol] 13.6 g/dL 12.0-15.0 [facility] Immature granulocytes/100 WB C Auto (Bld)Ordered By: Amber Martino on 07-28-2024 Immature granulocytes/100 WBC (Bld) 0.300 % 0.0-0.9 [facility] Comment on above: IG% - Immature Granu locytes (promyelocytes, myelocytes and metamyelocytes) > 1% indicates that a LEFT SHIFT is Present. Ketones Test strip Ql (U)Ord ered By: Amber Martino on 07-28-2024 Ketones Ql (U) 5 mg/dl High Negative [facility] L501.4020on 07-28-2024 TROPONIN-I HS 12 pg/mL Normal 3.0-54.0 [facility] Comment on above: Order Comment: 'TROP ' Serial specimen #1, #2 or #3: 1 Result Comment: Jeffrey quintana Note: New Test Units and Gender Specific Reference Ranges. For more information see Policy Stat Procedure [place] High Sensitivity Troponin (TNIH) and attachments. Performed By: #### L 501.4020, L100.0100, L500.2500 ####[facility] [address] [place], [address] Lymphocytes Auto (Unsp spec) [#/Vol]Ordered By: Amber Martino on 07-28-2024 Lymphocytes (Bld) [#/Vol] 1.12 10*3/uL 0.83-4.51 [facility] Lymphocytes/100 WBC Auto (Un sp spec)Ordered By: Amber Martino on 07-28-2024 Lymphocytes/100 WBC (Bld) 15.6 % Low 19-41 [facility] MCV (mean corpuscular volume ) determinationOrdered By: Amber Martino on 07-28-2024 MCV (RBC) [Entitic vol] 88.4 fL 81-99 [facility] Manual differential comment Ferny (Bld) [Interp]Ordered By: Amber Martino on 07-28-2024 Differential Comment SCANNED [facility] Mean corpuscular hemoglobin (MCH) determinationOrdered By: Amber Martino on 07-28-2024 MCH (RBC) [Entitic mass] 29.3 pg 27.0-32.0 [facility] Mean corpuscular hemoglobin concentration (MCHC) determinationOrdered By: Amber Martino on 07-28-2024 MCHC (RBC) [Mass/Vol] 33.2 g/dL 32-36 [facility] Mean platelet volume determi nationOrdered By: Amber Martino on 07-28-2024 Mean Platelet Volume Not Reportable [facility] Microscopic analysis of urin e for red blood cells (RBC)Ordered By: Amber Martino on 07-28-2024 Urine RBC 0 SEEN /hpf 0-5 [facility] Monocyte percentageOrdered B y: Amber Martino on 07-28-2024 Monocytes/100 WBC (Bld) 7.7 % 0-10 [facility] Mucus LM Ql (Urine sed)Order ed By: Amber Martino on 07-28-2024 Mucus Ql (Urine sed) 0 SEEN /hpf [facility] Neutrophil percentageOrdered By: Amber Martino on 07-28-2024 Neutrophils/100 WBC (Bld) 71.2 % High 47-70 [facility] Nitrite Test strip Ql (U)Ord ered By: Amber Martino on 07-28-2024 Nitrite Ql (U) Negative Negative [facility] Nucleated red blood cell per centageOrdered By: Amber Martino on 07-28-2024 Nucleated RBC/100 WBC (Bld) [Ratio] 0 % 0-5 [facility] Platelet countOrdered By: Ludy Martino on 07-28-2024 Platelet Count See comment 150-450 [facility] Comment on above: Please note: For [...] Martino on 07-28-2024 Platelet Estimate ADEQUATE ADEQ [facility] Potassium measurementOrdered By: Amber Martino on 07-28-2024 Potassium [Moles/Vol] 4.6 mmol/L 3.5-5.1 [facility] Protein Test strip Ql (U)Ord ered By: Amber Martino on 07-28-2024 Protein Ql (U) Negative Negative [facility] RBC Auto (Bld) [#/Vol]Ordere d By: Amber Martino on 07-28-2024 RBC (Bld) [#/Vol] 4.64 10*6/uL 4.2-5.4 [facility] Serum anion gap measurementO rdered By: Amber Martino on 07-28-2024 Anion gap [Moles/Vol] 6 mmol/L 5-15 [facility] Serum or plasma calcium zora urement (mass/volume)Ordered By: Amber Martino on 07-28-2024 Calcium [Mass/Vol] 9.3 mg/dL 8.5-10.1 [facility] Serum or plasma creatinine m easurement (mass/volume)Ordered By: Amber Martino on 07-28-2024 Creatinine [Mass/Vol] 1.05 mg/dL High 0.55-1.02 [facility] Comment on above: The validity of the calculated GFR & GFRAA in patients over 70 years has not been determined. Clinical correlation is essential. Serum or plasma urea nitroge n measurement (mass/volume)Ordered By: Amber Martino on 07-28-2024 Urea nitrogen [Mass/Vol] 19 mg/dL High 7-18 [facility] Sodium levelOrdered By: Amber Martino on 07-28-2024 Sodium [Moles/Vol] 134 mmol/L Low 136-145 [facility] Troponin IOrdered By: Amber caputo on 07-28-2024 Troponin I High Sensitivity 12 pg/mL 3.0-54.0 [facility] Comment on above: Please Note: New Mariajose t Units and Gender Specific Reference Ranges. For more information see Policy Stat Procedure [place] High Sensitivity Troponin (TNIH) and attachments. Urinalysis, Completeon 07-28 WBC 0-5 SEEN Normal 0-5 [facility] Comment on above: Order Comment: DERRICK CTOR TO SPECIFY Performed By: #### L 400.0001 ####[facility] [address] [place], [address] BACTERIA 0 SEEN Normal None Seen [facility] Comment on above: Order Comment: DERRICK CTOR TO SPECIFY Performed By: #### L 400.0001 ####[facility] [address] [place], [address] EPI,SQUAMOUS 0 SEEN Normal 5-10 [facility] Comment on above: Order Comment: DERRICK CTOR TO SPECIFY Performed By: #### L 400.0001 ####[facility] [address] [place], [place], [address] Mucus Ql (Urine sed) 0 SEEN Normal [facility] Comment on above: Order Comment: DERRICK CTOR TO SPECIFY Performed By: #### L 400.0001 ####[facility] [address] [place], [place], [id number] RBC 0 SEEN Normal 0-5 [facility] Comment on above: Order Comment: DERRICK CTOR TO SPECIFY Performed By: #### L 400.0001 ####[facility] [address] [place], [place], [id number] Urine blood detectionOrdered By: Amber Martino on 07-28-2024 Urine Occult Blood Negative Negative [facility] Urine clarityOrdered By: Venita Martino on 07-28-2024 Clarity (U) Clear Clear [facility] Urine color determinationOrd ered By: Amber Martino on 07-28-2024 Color (U) Yellow Yellow [facility] Urine leukocyte esterase det ection by dipstickOrdered By: Amber Martino on 07-28-2024 Leukocyte esterase Test strip Ql (U) 100 /ul High Negative [facility] Urine pHOrdered By: Amber magallanes on 07-28-2024 pH (U) 6.5 [pH] 5.0 - 8.0 [facility] Urine sediment bacteria coun t by microscopy (number/high power field)Ordered By: Amber Martino on 07-28-2024 Bacteria LM.HPF (Urine sed) [#/Area] 0 /[HPF] None Seen [facility] Urine specific gravity measu rementOrdered By: Amber Martino on 07-28-2024 Specific gravity (U) [Rel density] 1.010 1.002-1.030 [facility] Urobilinogen Ql (U)Ordered B y: Amber Martino on 07-28-2024 Urine Urobilinogen Normal mg/dl Normal [facility] White blood cell (WBC) count Ordered By: Amber Martino on 07-28-2024 WBC (Bld) [#/Vol] 7.2 10*3/uL 4.4-11.0 [facility] White blood cell countOrdere d By: Amber Marcelinoaura on 07-28-2024 Urine WBC 0-5 SEEN /hpf 0-5 [facility] CNPNon 07-19-2024 CNPN Normal [facility] CNPNon 07-16-2024 CNPN Normal [facility] CNOVon 07-03-2024 CNOV Normal [facility] L501.4020on 07-03-2024 TROPONIN-I HS 12 pg/mL Normal 3.0-54.0 [facility] Comment on above: Result Comment: Jeffrey quintana Note: New Test Units and Gender Specific Reference Ranges. For more information see Policy Stat Procedure [place] High Sensitivity Troponin (TNIH) and attachments. Performed By: #### L 501.4020 ####[facility] [address] [place], [place], [id number] Troponin IOrdered By: Eduardo Paz on 07-03-2024 Troponin I High Sensitivity 12 pg/mL 3.0-54.0 [facility] Comment on above: Please Note: New Mariajose t Units and Gender Specific Reference Ranges. For more information see Policy Stat Procedure [place] High Sensitivity Troponin (TNIH) and attachments. 12 Lead EKGon 07-02-2024 12 Lead EKG Normal [facility] Absolute neutrophil countOrd ered By: Eduardo Paz on 07-02-2024 Neutrophils (Bld) [#/Vol] 3.2 10*3/uL 2.0-7.7 [facility] Basic Metabolic Profile (BMP )on 07-02-2024 BUN/CRE 22.7 RATIO High 10-20 [facility] Comment on above: Order Comment: 1Y Performed By: #### L 500.2500, L501.5425, L100.0100 ####[facility] [address] [place], [place], [address] CA,Total 9.4 mg/dL Normal 8.5-10.1 [facility] Comment on above: Order Comment: 1Y Performed By: #### L 500.2500, L501.5425, L100.0100 ####[facility] [address] [place], [address] Chloride [Moles/Vol] 103 mmol/L Normal 98-107 [facility] Comment on above: Order Comment: 1Y Performed By: #### L 500.2500, L501.5425, L100.0100 ####[facility] [address] [place], [address] CO2 [Moles/Vol] 28.0 mmol/L Normal 21.0-32.0 [facility] Comment on above: Order Comment: 1Y Performed By: #### L 500.2500, L501.5425, L100.0100 ####[facility] [address] [place], [address] Creatinine [Mass/Vol] 0.84 mg/dL Normal 0.55-1.02 [facility] Comment on above: Order Comment: 1Y Result Comment: The validity of the calculated GFR GFRAA in patients over70 years has not been determined. Clinical correlation isessential. Performed By: #### L 500.2500, L501.5425, L100.0100 ####[facility] [address] [place], [address] ECRCL 82.67 ml/min Normal [facility] Comment on above: Order Comment: 1Y Performed By: #### L 500.2500, L501.5425, L100.0100 ####[facility] [address] [place], [address] EST GFR - AA 84 mL/min Normal >60 [facility] Comment on above: Order Comment: 1Y Result Comment: Afri can [place] GFR Calc Performed By: #### L 500.2500, L501.5425, L100.0100 ####[facility] [address] [place], [address] GAP 6 Normal 5-15 [facility] Comment on above: Order Comment: 1Y Performed By: #### L 500.2500, L501.5425, L100.0100 ####[facility] [address] [place], [address] GFR/1.73 sq M.predicted among non-blacks MDRD (S/P/Bld) [Vol rate/Area] 70 mL/min/{1.73_m2} Normal >60 [facility] Comment on above: Order Comment: 1Y Result Comment: Non- GFR Calc Performed By: #### L 500.2500, L501.5425, L100.0100 ####[facility] [address] [place], [address] Glucose [Mass/Vol] 195 mg/dL High 74-106 [facility] Comment on above: Order Comment: 1Y Result Comment: Fast ing Glucose result greater than or equal to 126 mg/dLsuggests DIABETES MELLITUS per A.D.A. criteria. Performed By: #### L 500.2500, L501.5425, L100.0100 ####[facility] [address] [place], [address] Potassium [Moles/Vol] 3.7 mmol/L Normal 3.5-5.1 [facility] Comment on above: Order Comment: 1Y Performed By: #### L 500.2500, L501.5425, L100.0100 ####[facility] [address] [place], [address] Sodium [Moles/Vol] 137 mmol/L Normal 136-145 [facility] Comment on above: Order Comment: 1Y Performed By: #### L 500.2500, L501.5425, L100.0100 ####[facility] [address] [place], [address] Urea nitrogen [Mass/Vol] 19 mg/dL High 7-18 [facility] Comment on above: Order Comment: 1Y Performed By: #### L 500.2500, L501.5425, L100.0100 ####[facility] [address] [place], [address] Basophil percentageOrdered B y: Eduardo Paz on 07-02-2024 Basophils/100 WBC (Bld) 0.4 % 0-1 [facility] Blood urea nitrogen (BUN)/cr eatinine ratioOrdered By: Eduardo Paz on 07-02-2024 Urea nitrogen/Creatinine [Mass ratio] 22.7 mg/mg High 10-20 [facility] CBC W/Diff, Automatedon 06-17-2023 Absolute Lymph 1.33 X10 3/uL Normal 0.83-4.51 [facility] Comment on above: Performed By: #### L 500.2500, L501.5425, L100.0100 ####[facility] [address] [place], [address] Absolute Neut 3.2 X10 3/uL Normal 2.0-7.7 [facility] Comment on above: Performed By: #### L 500.2500, L501.5425, L100.0100 ####[facility] [address] [place], [address] Basophils/100 WBC (Bld) 0.4 % Normal 0-1 [facility] Comment on above: Performed By: #### L 500.2500, L501.5425, L100.0100 ####[facility] [address] [place], [address] Eosinophils/100 WBC (Bld) 3.3 % Normal 0-5 [facility] Comment on above: Performed By: #### L 500.2500, L501.5425, L100.0100 ####[facility] [address] [place], [address] Erythrocyte distribution width (RBC) [Ratio] 12.5 % Normal 11.6-14.6 [facility] Comment on above: Performed By: #### L 500.2500, L501.5425, L100.0100 ####[facility] [address] [place], [address] Hematocrit (Bld) [Volume fraction] 38.9 % Normal 37-47 [facility] Comment on above: Performed By: #### L 500.2500, L501.5425, L100.0100 ####[facility] [address] [place], [address] Hemoglobin (Bld) [Mass/Vol] 12.7 g/dL Normal 12.0-15.0 [facility] Comment on above: Performed By: #### L 500.2500, L501.5425, L100.0100 ####[facility] [address] [place], [address] IG% 0.200 Normal 0.0-0.9 [facility] Comment on above: Result Comment: IG% - Immature Granulocytes (promyelocytes, myelocytes andmetamyelocytes) > 1% indicates that a LEFT SHIFT is Present. Performed By: #### L 500.2500, L501.5425, L100.0100 ####[facility] [address] [place], [address] Lymphocytes/100 WBC (Bld) 25.5 % Normal 19-41 [facility] Comment on above: Performed By: #### L 500.2500, L501.5425, L100.0100 ####[facility] [address] [place], [address] MCH (RBC) [Entitic mass] 29.1 pg Normal 27.0-32.0 [facility] Comment on above: Performed By: #### L 500.2500, L501.5425, L100.0100 ####[facility] [address] [place], [address] MCHC (RBC) [Mass/Vol] 32.6 g/dL Normal 32-36 [facility] Comment on above: Performed By: #### L 500.2500, L501.5425, L100.0100 ####[facility] [address] [place], [address] MCV (RBC) [Entitic vol] 89.0 fL Normal 81-99 [facility] Comment on above: Performed By: #### L 500.2500, L501.5425, L100.0100 ####[facility] [address] [place], [address] Monocytes/100 WBC (Bld) 9.8 % Normal 0-10 [facility] Comment on above: Performed By: #### L 500.2500, L501.5425, L100.0100 ####[facility] [address] [place], [address] Neutrophils/100 WBC (Bld) 60.8 % Normal 47-70 [facility] Comment on above: Performed By: #### L 500.2500, L501.5425, L100.0100 ####[facility] [address] [place], [address] Nucleated RBC (Bld) [#/Vol] 0 10*3/uL Normal 0-5 [facility] Comment on above: Performed By: #### L 500.2500, L501.5425, L100.0100 ####[facility] [address] [place], [address] Platelet mean volume (Bld) [Entitic vol] 12.2 fL High 6.2-12.0 [facility] Comment on above: Performed By: #### L 500.2500, L501.5425, L100.0100 ####[facility] [address] [place], [address] Platelets (Bld) [#/Vol] 183 10*3/uL Normal 150-450 [facility] Comment on above: Performed By: #### L 500.2500, L501.5425, L100.0100 ####[facility] [address] [place], [address] RBC (Bld) [#/Vol] 4.37 10*6/uL Normal 4.2-5.4 [facility] Comment on above: Performed By: #### L 500.2500, L501.5425, L100.0100 ####[facility] [address] [place], [address] RDW SD 41.1 fl Normal 35.1-43.9 [facility] Comment on above: Performed By: #### L 500.2500, L501.5425, L100.0100 ####[facility] [address] [place], [address] WBC (Bld) [#/Vol] 5.2 10*3/uL Normal 4.4-11.0 [facility] Comment on above: Performed By: #### L 500.2500, L501.5425, L100.0100 ####[facility] [address] [place], [address] Carbon dioxide measurementOr dered By: Eduardo Paz on 07-02-2024 CO2 [Moles/Vol] 28.0 mmol/L 21.0-32.0 [facility] Chest 1 View (Portable)on Chest 1 View (Portable) Normal [facility] Chloride measurementOrdered By: Eduardo Paz on 07-02-2024 Chloride [Moles/Vol] 103 mmol/L 98-107 [facility] Emergency Department Summary on 07-02-2024 Emergency Department Summary Normal [facility] Eosinophil percentageOrdered By: Eduardo Paz on 07-02-2024 Eosinophils/100 WBC (Bld) 3.3 % 0-5 [facility] Erythrocyte distribution wid th ratioOrdered By: Eduardo Paz on 07-02-2024 Erythrocyte distribution width (RBC) [Ratio] 12.5 % 11.6-14.6 [facility] Erythrocyte distribution wid th standard deviationOrdered By: Eduardodidi Hua on 07-02-2024 Erythrocyte distribution width (RBC) [Entitic vol] 41.1 fL 35.1-43.9 [facility] Estimated glomerular filtrat ion rate (GFR) AmericanOrdered By: Eduardo Paz on 07-02-2024 Estimated GFR (MDRD) Amer 84 mL/min >60 [facility] Comment on above: GFR Calc Estimation of creatinine kimberly aranceOrdered By: Eduardo Paz on 07-02-2024 Estimated Creatinine Clearance Calc 82.67 ml/min [facility] Glomerular filtration rate ( GFR) estimationOrdered By: Eduardo Paz on 07-02-2024 Estimated GFR (MDRD) Non-Af Amer 70 mL/min >60 [facility] Comment on above: Non- GFR Calc Glucose measurementOrdered B y: Eduardo Paz on 07-02-2024 Glucose [Mass/Vol] 195 mg/dL High 74-106 [facility] Comment on above: Fasting Glucose resu lt greater than or equal to 126 mg/dL suggests DIABETES MELLITUS per A.D.A. criteria. Hematocrit Auto (Bld) [Volum e fraction]Ordered By: Eduardo Paz on 07-02-2024 Hematocrit (Bld) [Volume fraction] 38.9 % 37-47 [facility] Hemoglobin measurementOrdere d By: Eduardo Paz on 07-02-2024 Hemoglobin (Bld) [Mass/Vol] 12.7 g/dL 12.0-15.0 [facility] Immature granulocytes/100 WB C Auto (Bld)Ordered By: Eduardo Paz on 07-02-2024 Immature granulocytes/100 WBC (Bld) 0.200 % 0.0-0.9 [facility] Comment on above: IG% - Immature Granu locytes (promyelocytes, myelocytes and metamyelocytes) > 1% indicates that a LEFT SHIFT is Present. L501.5425on 07-02-2024 TROPONIN-I HS 15 pg/mL Normal 3.0-54.0 [facility] Comment on above: Order Comment: 1Y Result Comment: Jeffrey quintana Note: New Test Units and Gender Specific Reference Ranges. For more information see Policy Stat Procedure [place] High Sensitivity Troponin (TNIH) and attachments. Performed By: #### L 500.2500, L501.5425, L100.0100 ####[facility] [address] [place], [address] Lymphocytes Auto (Unsp spec) [#/Vol]Ordered By: Eduardo Paz on 07-02-2024 Lymphocytes (Bld) [#/Vol] 1.33 10*3/uL 0.83-4.51 [facility] Lymphocytes/100 WBC Auto (Un sp spec)Ordered By: Eduardo Paz on 07-02-2024 Lymphocytes/100 WBC (Bld) 25.5 % 19-41 [facility] MCV (mean corpuscular volume ) determinationOrdered By: Eduardo Paz on 07-02-2024 MCV (RBC) [Entitic vol] 89.0 fL 81-99 [facility] Mean corpuscular hemoglobin (MCH) determinationOrdered By: Eduardo Paz on 07-02-2024 MCH (RBC) [Entitic mass] 29.1 pg 27.0-32.0 [facility] Mean corpuscular hemoglobin concentration (MCHC) determinationOrdered By: [facility] on 07-02-2024 MCHC (RBC) [Mass/Vol] 32.6 g/dL 32-36 [facility] Mean platelet volume determi nationOrdered By: Eduardo Paz on 07-02-2024 Platelet mean volume (Bld) [Entitic vol] 12.2 fL High 6.2-12.0 [facility] Monocyte percentageOrdered B y: Eduardo Paz on 07-02-2024 Monocytes/100 WBC (Bld) 9.8 % 0-10 [facility] Neutrophil percentageOrdered By: Eduardo Paz on 07-02-2024 Neutrophils/100 WBC (Bld) 60.8 % 47-70 [facility] Nucleated red blood cell per centageOrdered By: Eduardo Paz on 07-02-2024 Nucleated RBC/100 WBC (Bld) [Ratio] 0 % 0-5 [facility] Platelet countOrdered By: Krzysztof Paz on 07-02-2024 Platelets (Bld) [#/Vol] 183 10*3/uL 150-450 [facility] Potassium measurementOrdered By: Eduardo Paz on 07-02-2024 Potassium [Moles/Vol] 3.7 mmol/L 3.5-5.1 [facility] RBC Auto (Bld) [#/Vol]Ordere d By: Eduardo Paz on 07-02-2024 RBC (Bld) [#/Vol] 4.37 10*6/uL 4.2-5.4 [facility] Serum anion gap measurementO rdered By: Eduardo Paz on 07-02-2024 Anion gap [Moles/Vol] 6 mmol/L 5-15 [facility] Serum or plasma calcium zora urement (mass/volume)Ordered By: Eduardo Hua on 07-02-2024 Calcium [Mass/Vol] 9.4 mg/dL 8.5-10.1 [facility] Serum or plasma creatinine m easurement (mass/volume)Ordered By: Eduardo Hua on 07-02-2024 Creatinine [Mass/Vol] 0.84 mg/dL 0.55-1.02 [facility] Comment on above: The validity of the calculated GFR & GFRAA in patients over 70 years has not been determined. Clinical correlation is essential. Serum or plasma urea nitroge n measurement (mass/volume)Ordered By: Eduardo Paz on 07-02-2024 Urea nitrogen [Mass/Vol] 19 mg/dL High 7-18 [facility] Sodium levelOrdered By: Jack garza Jackson on 07-02-2024 Sodium [Moles/Vol] 137 mmol/L 136-145 [facility] White blood cell (WBC) count Ordered By: Eduardo Jackson on 07-02-2024 WBC (Bld) [#/Vol] 5.2 10*3/uL 4.4-11.0 [facility] CNPNon 06-29-2024 CNPN Normal [facility] Bacteria Ur Culton Bacteria identified Cx Nom (U) ORGANISM ID: 1 <10,000 CFU/ml Normal urogenital lawanda Normal [facility] Comment on above: Performed By: #### 6 30-4 ####[facility] LABCLIA [id number] [place] [address] [place] Urinalysis complete panel (U )on 06-28-2024 Bacteria LM.HPF (Urine sed) [#/Area] Negative Normal Negative [facility] Comment on above: Order Comment: Speci men Type: URINE SPECIMENOrdering Facility: [facility] Address: [address] [place] [address] Performed By: #### 2 4356-8 ####[facility] LABCLIA [id number] [place] [address] [place] Bilirubin Ql (U) Negative Normal Negative [facility] Comment on above: Order Comment: Speci men Type: URINE SPECIMENOrdering Facility: [facility] Address: [address] [place] [address] Performed By: #### 2 4356-8 ####[facility] LABCLIA [id number] [place] [address] [place] Clarity (Unsp spec) Clear Normal Clear [facility] Comment on above: Order Comment: Speci men Type: URINE SPECIMENOrdering Facility: [facility] Address: [address] [place] [address] Performed By: #### 2 4356-8 ####[facility] LABCLIA [id number] [place] [address] [place] Color (U) Yellow Normal Yellow [facility] Comment on above: Order Comment: Speci men Type: URINE SPECIMENOrdering Facility: [facility] Address: [address] [place] [address] Performed By: #### 2 4356-8 ####[facility] LABCLIA [id number] [place] [address] [place] Epithelial cells LM.HPF (Urine sed) [#/Area] None Seen Normal [facility] Comment on above: Order Comment: Speci men Type: URINE SPECIMENOrdering Facility: [facility] Address: [address] [place] [address] Performed By: #### 2 4356-8 ####[facility] LABCLIA [id number] [address] [place] Glucose Test strip (U) [Mass/Vol] Negative Normal Negative [facility] Comment on above: Order Comment: Speci men Type: URINE SPECIMENOrdering Facility: [facility] Address: [address] [place] [address] Performed By: #### 2 4356-8 ####[facility] LABCLIA [id number] [place] [address] [place] Hemoglobin Ql (U) Negative Normal Negative [facility] Comment on above: Order Comment: Speci men Type: URINE SPECIMENOrdering Facility: [facility] Address: [address] [place] [address] Performed By: #### 2 4356-8 ####[facility] LABCLIA [id number] [place] [address] [place] Hyaline casts (Urine sed) [#/Area] 0 /[LPF] Normal 0 /LPF [facility] Comment on above: Order Comment: Speci men Type: URINE SPECIMENOrdering Facility: [facility] Address: [address] [place] [address] Performed By: #### 2 4356-8 ####[facility] LABCLIA [id number] [place] [address] [place] Ketones Ql (U) Negative Normal Negative [facility] Comment on above: Order Comment: Speci men Type: URINE SPECIMENOrdering Facility: [facility] Address: [address] [place] [address] Performed By: #### 2 4356-8 ####[facility] LABCLIA [id number] [place] [address] [place] Leukocyte esterase Test strip Ql (U) Trace Abnormal Negative [facility] Comment on above: Order Comment: Speci men Type: URINE SPECIMENOrdering Facility: [facility] Address: [address] [place] [address] Performed By: #### 2 4356-8 ####[facility] LABCLIA [id number] [place] [address] [place] Nitrite Ql (U) Negative Normal Negative [facility] Comment on above: Order Comment: Speci men Type: URINE SPECIMENOrdering Facility: [facility] Address: [address] [place] [address] Performed By: #### 2 4356-8 ####[facility] LABIA [id number] [place] [address] [place] pH (U) 6.0 [pH] Normal <8.5 [facility] Comment on above: Order Comment: Speci men Type: URINE SPECIMENOrdering Facility: [facility] Address: [address] [place] [address] Performed By: #### 2 4356-8 ####[facility] LABCLIA [id number] [place] [address] [place] Protein (U) [Mass/Vol] Negative Normal Negative [facility] Comment on above: Order Comment: Speci men Type: URINE SPECIMENOrdering Facility: [facility] Address: [address] [place] [address] Performed By: #### 2 4356-8 ####[facility] [id number] [place] [address] [place] RBC LM.HPF (Urine sed) [#/Area] 0-2 /HPF Normal 0-2 /HPF [facility] Comment on above: Order Comment: Speci men Type: URINE SPECIMENOrdering Facility: [facility] Address: [address] [place] [address] Performed By: #### 2 4356-8 ####[facility] [id number] [place] [address] [place] Specific gravity (U) [Rel density] 1.013 Normal 1.005-1.030 [facility] Comment on above: Order Comment: Speci men Type: URINE SPECIMENOrdering Facility: [facility] Address: [address] [place] [address] Performed By: #### 2 4356-8 ####[facility] [id number] [place] [address] [place] Urobilinogen Ql (U) 0.2 EU/dL Normal 0.2-1.0 EU/dL [facility] Comment on above: Order Comment: Speci men Type: URINE SPECIMENOrdering Facility: [facility] Address: [address] [place] [address] Performed By: #### 2 4356-8 ####[facility] [id number] [place] [address] [place] WBC LM.HPF (Urine sed) [#/Area] 6-10 /HPF Abnormal 0-5 /HPF [facility] Comment on above: Order Comment: Speci men Type: URINE SPECIMENOrdering Facility: [facility] Address: [address] [place] [address] Performed By: #### 2 4356-8 ####[facility] LABCLIA [id number] [facility] [place] [address] [place] CNPNon 06-26-2024 CNPN Normal [facility] CNPTOUTREACHon 06-21-2024 CNPTOUTREACH Normal [facility] 12 Lead EKG performed by BMS on 06-13-2024 12 Lead EKG performed by BMS Normal [facility] Cardiology Visit Reporton Cardiology Visit Report Normal [facility] CNOVon 06-11-2024 CNOV Normal [facility] Urine Cultureon 06-09-2024 URC Culture exhibits no growth. Normal [facility] Comment on above: Performed By: #### M 100.2200 ####[facility] [address] [place], [address] Absolute neutrophil countOrd ered By: Amber Martino on 06-08-2024 Neutrophils (Bld) [#/Vol] 5.4 10*3/uL 2.0-7.7 [facility] Acetone Serumon 06-08-2024 ACETONE SERUM Negative Normal NEG [facility] Comment on above: Performed By: #### L 501.6900, L100.0100, L500.2500 ####[facility] [address] [place], [address] Acetone [Mass/Vol]Ordered By : Amber Martino on 06-08-2024 Acetone Level Negative NEG [facility] Basic Metabolic Profile (BMP )on 06-08-2024 BUN/CRE 19.8 RATIO Normal 10-20 [facility] Comment on above: Performed By: #### L 501.6900, L100.0100, L500.2500 ####[facility] [address] [place], [address] CA,Total 8.8 mg/dL Normal 8.5-10.1 [facility] Comment on above: Performed By: #### L 501.6900, L100.0100, L500.2500 ####[facility] [address] [place], [address] Chloride [Moles/Vol] 102 mmol/L Normal 98-107 [facility] Comment on above: Performed By: #### L 501.6900, L100.0100, L500.2500 ####[facility] [address] [place], [address] CO2 [Moles/Vol] 27.0 mmol/L Normal 21.0-32.0 [facility] Comment on above: Performed By: #### L 501.6900, L100.0100, L500.2500 ####[facility] [address] [place], [address] Creatinine [Mass/Vol] 1.16 mg/dL High 0.55-1.02 [facility] Comment on above: Result Comment: The validity of the calculated GFR GFRAA in patients over70 years has not been determined. Clinical correlation isessential. Performed By: #### L 501.6900, L100.0100, L500.2500 ####[facility] [address] [place], [address] ECRCL 60.88 ml/min Normal [facility] Comment on above: Performed By: #### L 501.6900, L100.0100, L500.2500 ####[facility] [address] [place], [address] EST GFR - AA 58 mL/min Low >60 [facility] Comment on above: Result Comment: Afri can [place] GFR Calc Performed By: #### L 501.6900, L100.0100, L500.2500 ####[facility] [address] [place], [address] GAP 7 Normal 5-15 [facility] Comment on above: Performed By: #### L 501.6900, L100.0100, L500.2500 ####[facility] [address] [place], [address] GFR/1.73 sq M.predicted among non-blacks MDRD (S/P/Bld) [Vol rate/Area] 48 mL/min/{1.73_m2} Low >60 [facility] Comment on above: Result Comment: Non- GFR Calc Performed By: #### L 501.6900, L100.0100, L500.2500 ####[facility] [address] [place], [address] Glucose [Mass/Vol] 296 mg/dL High 74-106 [facility] Comment on above: Result Comment: Gluc ose result greater than or equal to 200 mg/dLsuggests DIABETES MELLITUS per A.D.A. criteria. Performed By: #### L 501.6900, L100.0100, L500.2500 ####[facility] [address] [place], [address] Potassium [Moles/Vol] 3.8 mmol/L Normal 3.5-5.1 [facility] Comment on above: Performed By: #### L 501.6900, L100.0100, L500.2500 ####[facility] [address] [place], [address] Sodium [Moles/Vol] 136 mmol/L Normal 136-145 [facility] Comment on above: Performed By: #### L 501.6900, L100.0100, L500.2500 ####[facility] [address] [place], [address] Urea nitrogen [Mass/Vol] 23 mg/dL High 7-18 [facility] Comment on above: Performed By: #### L 501.6900, L100.0100, L500.2500 ####[facility] [address] [place], [address] Basophil percentageOrdered B y: Amber Martino on 06-08-2024 Basophils/100 WBC (Bld) 0.6 % 0-1 [facility] Bedside Glucoseon 06-08-2024 FINGERSTICK GLU 274 mg/dL High 74-106 [facility] Comment on above: Result Comment: MERCEDES GEMENT OF PATIENT CARE PER NURSING PROTOCOL Performed By: #### L 501.080 ####[facility] [address] [facility] [address] FINGERSTICK GLU 266 mg/dL High 74-106 [facility] Comment on above: Result Comment: MERCEDES GEMENT OF PATIENT CARE PER NURSING PROTOCOL Performed By: #### L 501.080 ####[facility] [address] [facility] [address] FINGERSTICK GLU 291 mg/dL High 74-106 [facility] Comment on above: Result Comment: MERCEDES GEMENT OF PATIENT CARE PER NURSING PROTOCOL Performed By: #### L 501.080 ####[facility] [address] [facility] [address] Bilirubin Test strip Ql (U)O rdered By: Amber Martino on 06-08-2024 Bilirubin Ql (U) Negative Negative [facility] Blood urea nitrogen (BUN)/cr eatinine ratioOrdered By: Amber Martino on 06-08-2024 Urea nitrogen/Creatinine [Mass ratio] 19.8 mg/mg 10-20 [facility] CBC W/Diff, Automatedon 05-19 Absolute Lymph 1.02 X10 3/uL Normal 0.83-4.51 [facility] Comment on above: Performed By: #### L 501.6900, L100.0100, L500.2500 ####[facility] [address] [facility] [address] Absolute Neut 5.4 X10 3/uL Normal 2.0-7.7 [facility] Comment on above: Performed By: #### L 501.6900, L100.0100, L500.2500 ####[facility] [address] [place], [address] Basophils/100 WBC (Bld) 0.6 % Normal 0-1 [facility] Comment on above: Performed By: #### L 501.6900, L100.0100, L500.2500 ####[facility] [address] [place], [address] Eosinophils/100 WBC (Bld) 3.5 % Normal 0-5 [facility] Comment on above: Performed By: #### L 501.6900, L100.0100, L500.2500 ####[facility] [address] [place], [address] Erythrocyte distribution width (RBC) [Ratio] 12.9 % Normal 11.6-14.6 [facility] Comment on above: Performed By: #### L 501.6900, L100.0100, L500.2500 ####[facility] [address] [place], [address] Hematocrit (Bld) [Volume fraction] 38.8 % Normal 37-47 [facility] Comment on above: Performed By: #### L 501.6900, L100.0100, L500.2500 ####[facility] [address] [place], [address] Hemoglobin (Bld) [Mass/Vol] 12.8 g/dL Normal 12.0-15.0 [facility] Comment on above: Performed By: #### L 501.6900, L100.0100, L500.2500 ####[facility] [address] [place], [address] IG% 0.000 Normal 0.0-0.9 [facility] Comment on above: Result Comment: IG% - Immature Granulocytes (promyelocytes, myelocytes andmetamyelocytes) > 1% indicates that a LEFT SHIFT is Present. Performed By: #### L 501.6900, L100.0100, L500.2500 ####[facility] [address] [place], [address] Lymphocytes/100 WBC (Bld) 14.2 % Low 19-41 [facility] Comment on above: Performed By: #### L 501.6900, L100.0100, L500.2500 ####[facility] [address] [place], [address] MCH (RBC) [Entitic mass] 29.2 pg Normal 27.0-32.0 [facility] Comment on above: Performed By: #### L 501.6900, L100.0100, L500.2500 ####[facility] [address] [place], [address] MCHC (RBC) [Mass/Vol] 33.0 g/dL Normal 32-36 [facility] Comment on above: Performed By: #### L 501.6900, L100.0100, L500.2500 ####[facility] [address] [place], [address] MCV (RBC) [Entitic vol] 88.4 fL Normal 81-99 [facility] Comment on above: Performed By: #### L 501.6900, L100.0100, L500.2500 ####[facility] [address] [place], [address] Monocytes/100 WBC (Bld) 7.5 % Normal 0-10 [facility] Comment on above: Performed By: #### L 501.6900, L100.0100, L500.2500 ####[facility] [address] [place], [address] Neutrophils/100 WBC (Bld) 74.2 % High 47-70 [facility] Comment on above: Performed By: #### L 501.6900, L100.0100, L500.2500 ####[facility] [address] [place], [address] Nucleated RBC (Bld) [#/Vol] 0 10*3/uL Normal 0-5 [facility] Comment on above: Performed By: #### L 501.6900, L100.0100, L500.2500 ####[facility] [address] [place], [address] Platelet mean volume (Bld) [Entitic vol] 12.7 fL High 6.2-12.0 [facility] Comment on above: Performed By: #### L 501.6900, L100.0100, L500.2500 ####[facility] [address] [place], [address] Platelets (Bld) [#/Vol] 162 10*3/uL Normal 150-450 [facility] Comment on above: Performed By: #### L 501.6900, L100.0100, L500.2500 ####[facility] [address] [place], [address] RBC (Bld) [#/Vol] 4.39 10*6/uL Normal 4.2-5.4 [facility] Comment on above: Performed By: #### L 501.6900, L100.0100, L500.2500 ####[facility] [address] [place], [address] RDW SD 42.1 fl Normal 35.1-43.9 [facility] Comment on above: Performed By: #### L 501.6900, L100.0100, L500.2500 ####[facility] [address] [place], [address] WBC (Bld) [#/Vol] 7.2 10*3/uL Normal 4.4-11.0 [facility] Comment on above: Performed By: #### L 501.6900, L100.0100, L500.2500 ####[facility] [address] [place], [address] Carbon dioxide measurementOr dered By: Amber Martino on 06-08-2024 CO2 [Moles/Vol] 27.0 mmol/L 21.0-32.0 [facility] Chloride measurementOrdered By: Amber Martino on 06-08-2024 Chloride [Moles/Vol] 102 mmol/L 98-107 [facility] Emergency Department Summary on 06-08-2024 Emergency Department Summary Normal [facility] Eosinophil percentageOrdered By: Amber Martino on 06-08-2024 Eosinophils/100 WBC (Bld) 3.5 % 0-5 [facility] Epithelial cells.squamous LM Ql (Urine sed)Ordered By: Amber Martino on 06-08-2024 Epithelial cells.squamous LM.HPF (Urine sed) [#/Area] 0 /[HPF] 5-10 [facility] Erythrocyte distribution wid th ratioOrdered By: mAber Martino on 06-08-2024 Erythrocyte distribution width (RBC) [Ratio] 12.9 % 11.6-14.6 [facility] Erythrocyte distribution wid th standard deviationOrdered By: Amber Martino on 06-08-2024 Erythrocyte distribution width (RBC) [Entitic vol] 42.1 fL 35.1-43.9 [facility] Estimated glomerular filtrat ion rate (GFR) AmericanOrdered By: Amber Martino on 06-08-2024 Estimated GFR (MDRD) Amer 58 mL/min Low >60 [facility] Comment on above: GFR Calc Estimation of creatinine kimberly aranceOrdered By: Amber Martino on 06-08-2024 Estimated Creatinine Clearance Calc 60.88 ml/min [facility] Glomerular filtration rate ( GFR) estimationOrdered By: Amber Martino on 06-08-2024 Estimated GFR (MDRD) Non-Af Amer 48 mL/min Low >60 [facility] Comment on above: Non- GFR Calc Glucose Ql (U)Ordered By: Ludy Martino on 06-08-2024 Urine Glucose (UA) Normal mg/dl Normal [facility] Glucose measurementOrdered B y: Amber Martino on 06-08-2024 Glucose [Mass/Vol] 296 mg/dL High 74-106 [facility] Comment on above: Glucose result great er than or equal to 200 mg/dLsuggests DIABETES MELLITUS per A.D.A. criteria. [facility] deOrdered By: Reyna Monzon on 06-08-2024 Bedside Glucose (Misc Panel) 274 mg/dL High 74-106 [facility] Comment on above: MANAGEMENT OF PATIEN T CARE PER NURSING PROTOCOL Hematocrit Auto (Bld) [Volum e fraction]Ordered By: Amber Martino on 06-08-2024 Hematocrit (Bld) [Volume fraction] 38.8 % 37-47 [facility] Hemoglobin measurementOrdere d By: Amber Martino on 06-08-2024 Hemoglobin (Bld) [Mass/Vol] 12.8 g/dL 12.0-15.0 [facility] Immature granulocytes/100 WB C Auto (Bld)Ordered By: Amber Martino on 06-08-2024 Immature granulocytes/100 WBC (Bld) 0.000 % 0.0-0.9 [facility] Comment on above: IG% - Immature Granu locytes (promyelocytes, myelocytes and metamyelocytes) > 1% indicates that a LEFT SHIFT is Present. Ketones Test strip Ql (U)Ord ered By: Amber Martino on 06-08-2024 Ketones Ql (U) Negative Negative [facility] Lymphocytes Auto (Unsp spec) [#/Vol]Ordered By: Amber Martino on 06-08-2024 Lymphocytes (Bld) [#/Vol] 1.02 10*3/uL 0.83-4.51 [facility] Lymphocytes/100 WBC Auto (Un sp spec)Ordered By: Amber Martino on 06-08-2024 Lymphocytes/100 WBC (Bld) 14.2 % Low 19-41 [facility] MCV (mean corpuscular volume ) determinationOrdered By: Amber Martino on 06-08-2024 MCV (RBC) [Entitic vol] 88.4 fL 81-99 [facility] Mean corpuscular hemoglobin (MCH) determinationOrdered By: Amber Martino on 06-08-2024 MCH (RBC) [Entitic mass] 29.2 pg 27.0-32.0 [facility] Mean corpuscular hemoglobin concentration (MCHC) determinationOrdered By: Amber Mratino on 06-08-2024 MCHC (RBC) [Mass/Vol] 33.0 g/dL 32-36 [facility] Mean platelet volume determi nationOrdered By: Amber Martino on 06-08-2024 Platelet mean volume (Bld) [Entitic vol] 12.7 fL High 6.2-12.0 [facility] Microscopic analysis of urin e for red blood cells (RBC)Ordered By: Amber Martino on 06-08-2024 Urine RBC 0-5 SEEN /hpf 0-5 [facility] Monocyte percentageOrdered B y: Amber Martino on 06-08-2024 Monocytes/100 WBC (Bld) 7.5 % 0-10 [facility] Mucus LM Ql (Urine sed)Order ed By: Amber Martino on 06-08-2024 Mucus Ql (Urine sed) 0 SEEN /hpf [facility] Neutrophil percentageOrdered By: Amber Martino on 06-08-2024 Neutrophils/100 WBC (Bld) 74.2 % High 47-70 [facility] Nitrite Test strip Ql (U)Ord ered By: Amber Martino on 06-08-2024 Nitrite Ql (U) Negative Negative [facility] Nucleated red blood cell per centageOrdered By: Amber Martino on 06-08-2024 Nucleated RBC/100 WBC (Bld) [Ratio] 0 % 0-5 [facility] Platelet countOrdered By: Ludy Martino on 06-08-2024 Platelets (Bld) [#/Vol] 162 10*3/uL 150-450 [facility] Potassium measurementOrdered By: Amber Martino on 06-08-2024 Potassium [Moles/Vol] 3.8 mmol/L 3.5-5.1 [facility] Protein Test strip Ql (U)Ord ered By: Amber Martino on 06-08-2024 Protein Ql (U) Negative Negative [facility] RBC Auto (Bld) [#/Vol]Ordere d By: Amber Martino on 06-08-2024 RBC (Bld) [#/Vol] 4.39 10*6/uL 4.2-5.4 [facility] Serum anion gap measurementO rdered By: Amber Martino on 06-08-2024 Anion gap [Moles/Vol] 7 mmol/L 5-15 [facility] Serum or plasma calcium zora urement (mass/volume)Ordered By: Amber Martino on 06-08-2024 Calcium [Mass/Vol] 8.8 mg/dL 8.5-10.1 [facility] Serum or plasma creatinine m easurement (mass/volume)Ordered By: Amber Martino on 06-08-2024 Creatinine [Mass/Vol] 1.16 mg/dL High 0.55-1.02 [facility] Comment on above: The validity of the calculated GFR & GFRAA in patients over 70 years has not been determined. Clinical correlation is essential. Serum or plasma urea nitroge n measurement (mass/volume)Ordered By: Amber Martino on 06-08-2024 Urea nitrogen [Mass/Vol] 23 mg/dL High 7-18 [facility] Sodium levelOrdered By: Amber Martino on 06-08-2024 Sodium [Moles/Vol] 136 mmol/L 136-145 [facility] Urinalysis, Completeon 06-08 BACTERIA 1+ /hpf Normal None Seen [facility] Comment on above: Order Comment: CLEAN CATCH Performed By: #### L 400.0001 ####[facility] [address] [place], [place], [id number] RBC 0-5 SEEN Normal 0-5 [facility] Comment on above: Order Comment: CLEAN CATCH Performed By: #### L 400.0001 ####[facility] [address] [place], [address] WBC 5-10 SEEN Normal 0-5 [facility] Comment on above: Order Comment: CLEAN CATCH Performed By: #### L 400.0001 ####[facility] [address] [place], [address] EPI,SQUAMOUS 0 SEEN Normal 5-10 [facility] Comment on above: Order Comment: CLEAN CATCH Performed By: #### L 400.0001 ####[facility] [address] [place], [address] Mucus Ql (Urine sed) 0 SEEN Normal [facility] Comment on above: Order Comment: CLEAN CATCH Performed By: #### L 400.0001 ####[facility] [address] [place], [address] Urine blood detectionOrdered By: Amber Martino on 06-08-2024 Urine Occult Blood 10 /ul High Negative [facility] Urine clarityOrdered By: Venita Martino on 06-08-2024 Clarity (U) Sl. Cloudy Clear [facility] Urine color determinationOrd ered By: Amber Martino on 06-08-2024 Color (U) Straw Yellow [facility] Urine cultureOrdered By: Venita Martino on 06-08-2024 Bacteria identified Cx Nom (U) Culture exhibits no growth. [facility] Bacteria identified Cx Nom (U) Culture exhibits no growth. [facility] Urine leukocyte esterase det ection by dipstickOrdered By: Amber Martino on 06-08-2024 Leukocyte esterase Test strip Ql (U) 500 /ul High Negative [facility] Urine pHOrdered By: Amber magallanes on 06-08-2024 pH (U) 6.0 [pH] 5.0 - 8.0 [facility] Urine sediment bacteria coun t by microscopy (number/high power field)Ordered By: Amber Martino on 06-08-2024 Bacteria LM.HPF (Urine sed) [#/Area] 1 /[HPF] None Seen [facility] Urine specific gravity measu rementOrdered By: Amber Martino on 06-08-2024 Specific gravity (U) [Rel density] 1.010 1.002-1.030 [facility] Urobilinogen Ql (U)Ordered B y: Amber Martino on 06-08-2024 Urine Urobilinogen Normal mg/dl Normal [facility] White blood cell (WBC) count Ordered By: Amber Martino on 06-08-2024 WBC (Bld) [#/Vol] 7.2 10*3/uL 4.4-11.0 [facility] White blood cell countOrdere d By: Ambergm Martino on 06-08-2024 Urine WBC 5-10 SEEN /hpf 0-5 [facility] Bedside Glucoseon 06-07-2024 FINGERSTICK GLU 217 mg/dL High 74-106 [facility] Comment on above: Result Comment: MERCEDES SUBRAMANIAN OF PATIENT CARE PER NURSING PROTOCOL Performed By: #### L 501.080 ####[facility] [address] [place], [address] Echo Complete W/ Contraston 06-07-2024 Echo Complete W/ Contrast Normal [facility] deOrdered By: Areli Estevez on 06-07-2024 Bedside Glucose (Misc Panel) 217 mg/dL High 74-106 [facility] Comment on above: MANAGEMENT OF PATIEN T CARE PER NURSING PROTOCOL Stress Reporton 06-07-2024 Stress Report Normal [facility] Stress Report Normal [facility] CNPTOUTREACHon 06-06-2024 CNPTOUTREACH Normal [facility] CNPNon 05-31-2024 CNPN Normal [facility] Absolute neutrophil countOrd ered By: Lars Dahl on 05-27-2024 Neutrophils (Bld) [#/Vol] 3.8 10*3/uL 2.0-7.7 [facility] BNP (brain natriuretic pepti de measurement)Ordered By: Lars Dahl on 05-27-2024 Natriuretic peptide B (Bld) [Mass/Vol] 97.6 pg/mL 0-100 [facility] Basophil percentageOrdered B y: Lars Dahl on 05-27-2024 Basophils/100 WBC (Bld) 0.5 % 0-1 [facility] Blood urea nitrogen (BUN)/cr eatinine ratioOrdered By: Lars Dahl on 05-27-2024 Urea nitrogen/Creatinine [Mass ratio] 21.6 mg/mg High 05-06 [facility] Carbon dioxide measurementOr dered By: Lars Dahl on 05-27-2024 CO2 [Moles/Vol] 27.0 mmol/L 21.0-32.0 [facility] Chloride measurementOrdered By: Lars Dahl on 05-27-2024 Chloride [Moles/Vol] 108 mmol/L High 98-107 [facility] Eosinophil percentageOrdered By: Lars Dahl on 05-27-2024 Eosinophils/100 WBC (Bld) 5.5 % High 0-5 [facility] Erythrocyte distribution wid th ratioOrdered By: Lars Dahl on 05-27-2024 Erythrocyte distribution width (RBC) [Ratio] 12.9 % 11.6-14.6 [facility] Erythrocyte distribution wid th standard deviationOrdered By: Lars Dahl on 05-27-2024 Erythrocyte distribution width (RBC) [Entitic vol] 41.8 fL 35.1-43.9 [facility] Estimated glomerular filtrat ion rate (GFR) AmericanOrdered By: Lars Dahl on 05-27-2024 Estimated GFR (MDRD) Amer 67 mL/min >60 [facility] Comment on above: GFR Calc Glomerular filtration rate ( GFR) estimationOrdered By: Lars Dahl on 05-27-2024 Estimated GFR (MDRD) Non-Af Amer 56 mL/min Low >60 [facility] Comment on above: Non- GFR Calc Glucose measurementOrdered B y: Lars Dahl on 05-27-2024 Glucose [Mass/Vol] 152 mg/dL High 74-106 [facility] Comment on above: Fasting Glucose resu lt greater than or equal to 126 mg/dL suggests DIABETES MELLITUS per A.D.A. criteria. Hematocrit Auto (Bld) [Volum e fraction]Ordered By: Lars Dahl on 05-27-2024 Hematocrit (Bld) [Volume fraction] 37.2 % 37-47 [facility] Hemoglobin measurementOrdere d By: Lars Dahl on 05-27-2024 Hemoglobin (Bld) [Mass/Vol] 12.2 g/dL 12.0-15.0 [facility] Immature granulocytes/100 WB C Auto (Bld)Ordered By: Lars Dahl on 05-27-2024 Immature granulocytes/100 WBC (Bld) 0.200 % 0.0-0.9 [facility] Comment on above: IG% - Immature Granu locytes (promyelocytes, myelocytes and metamyelocytes) > 1% indicates that a LEFT SHIFT is Present. Lymphocytes Auto (Unsp spec) [#/Vol]Ordered By: Lars Dahl on 05-27-2024 Lymphocytes (Bld) [#/Vol] 1.24 10*3/uL 0.83-4.51 [facility] Lymphocytes/100 WBC Auto (Un sp spec)Ordered By: Lars Dahl on 05-27-2024 Lymphocytes/100 WBC (Bld) 21.2 % 19-41 [facility] MCV (mean corpuscular volume ) determinationOrdered By: Lars Dahl on 05-27-2024 MCV (RBC) [Entitic vol] 88.4 fL 81-99 [facility] Mean corpuscular hemoglobin (MCH) determinationOrdered By: Lars Dahl on 05-27-2024 MCH (RBC) [Entitic mass] 29.0 pg 27.0-32.0 [facility] Mean corpuscular hemoglobin concentration (MCHC) determinationOrdered By: Lars Dahl on 05-27-2024 MCHC (RBC) [Mass/Vol] 32.8 g/dL 32-36 [facility] Mean platelet volume determi nationOrdered By: Lars Dahl on 05-27-2024 Platelet mean volume (Bld) [Entitic vol] 12.6 fL High 6.2-12.0 [facility] Monocyte percentageOrdered B y: Lars Dahl on 05-27-2024 Monocytes/100 WBC (Bld) 8.2 % 0-10 [facility] Neutrophil percentageOrdered By: Lars Dahl on 05-27-2024 Neutrophils/100 WBC (Bld) 64.4 % 47-70 [facility] Nucleated red blood cell per centageOrdered By: Lars Dahl on 05-27-2024 Nucleated RBC/100 WBC (Bld) [Ratio] 0 % 0-5 [facility] Platelet countOrdered By: Lazaro Dahl on 05-27-2024 Platelets (Bld) [#/Vol] 185 10*3/uL 150-450 [facility] Potassium measurementOrdered By: Lars Dahl on 05-27-2024 Potassium [Moles/Vol] 3.8 mmol/L 3.5-5.1 [facility] RBC Auto (Bld) [#/Vol]Ordere d By: Lars Dahl on 05-27-2024 RBC (Bld) [#/Vol] 4.21 10*6/uL 4.2-5.4 [facility] Serum anion gap measurementO rdered By: Lars Dahl on 05-27-2024 Anion gap [Moles/Vol] 4 mmol/L Low 5-15 [facility] Serum or plasma calcium zora urement (mass/volume)Ordered By: Lars Dahl on 05-27-2024 Calcium [Mass/Vol] 8.7 mg/dL 8.5-10.1 [facility] Serum or plasma creatinine m easurement (mass/volume)Ordered By: Lars Dahl on 05-27-2024 Creatinine [Mass/Vol] 1.02 mg/dL 0.55-1.02 [facility] Comment on above: The validity of the calculated GFR & GFRAA in patients over 70 years has not been determined. Clinical correlation is essential. Serum or plasma urea nitroge n measurement (mass/volume)Ordered By: Lars Dahl on 05-27-2024 Urea nitrogen [Mass/Vol] 22 mg/dL High 7-18 [facility] Sodium levelOrdered By: Jorge Dahl on 05-27-2024 Sodium [Moles/Vol] 139 mmol/L 136-145 [facility] TSH QnOrdered By: Lars judd on 05-27-2024 Thyroid Stimulating Hormone (TSH) 2.300 uIU/mL 0.358-3.740 [facility] Troponin IOrdered By: Lars Dahl on 05-27-2024 Troponin I High Sensitivity 10 pg/mL 3.0-54.0 [facility] Comment on above: Please Note: New Mariajose t Units and Gender Specific Reference Ranges. For more information see Policy Stat Procedure [place] High Sensitivity Troponin (TNIH) and attachments. White blood cell (WBC) count Ordered By: Lars Dahl on 05-27-2024 WBC (Bld) [#/Vol] 5.8 10*3/uL 4.4-11.0 [facility] Absolute neutrophil countOrd ered By: Reyna Monzon on 05-25-2024 Neutrophils (Bld) [#/Vol] 5.6 10*3/uL 2.0-7.7 [facility] Albumin to globulin ratioOrd ered By: Reyna Monzon on 05-25-2024 Albumin/Globulin [Mass ratio] 0.9 {ratio} 0.9-2.4 [facility] Basophil percentageOrdered B y: Reyna Monzon on 05-25-2024 Basophils/100 WBC (Bld) 0.4 % 0-1 [facility] Bilirubin, totalOrdered By: Reyna Monzon on 05-25-2024 Bilirubin [Mass/Vol] 1.20 mg/dL High 0.20-1.00 [facility] Comment on above: For patients on eltr ombopag therapy, use of Dimension [place] TBIL is not recommended. Blood urea nitrogen (BUN)/cr eatinine ratioOrdered By: Reyna Monzon on 05-25-2024 Urea nitrogen/Creatinine [Mass ratio] 23.0 mg/mg High 10-20 [facility] Carbon dioxide measurementOr dered By: Reyna Monzon on 05-25-2024 CO2 [Moles/Vol] 25.0 mmol/L 21.0-32.0 [facility] Chloride measurementOrdered By: Reyna Monzon on 05-25-2024 Chloride [Moles/Vol] 103 mmol/L 98-107 [facility] Eosinophil percentageOrdered By: Reyna Monzon on 05-25-2024 Eosinophils/100 WBC (Bld) 3.7 % 0-5 [facility] Erythrocyte distribution wid th ratioOrdered By: Reyna Monzon on 05-25-2024 Erythrocyte distribution width (RBC) [Ratio] 12.7 % 11.6-14.6 [facility] Erythrocyte distribution wid th standard deviationOrdered By: Reyna Monzon on 05-25-2024 Erythrocyte distribution width (RBC) [Entitic vol] 41.4 fL 35.1-43.9 [facility] Estimated glomerular filtrat ion rate (GFR) AmericanOrdered By: Reyna Monzon on 05-25-2024 Estimated GFR (MDRD) Amer 81 mL/min >60 [facility] Comment on above: GFR Calc Estimation of creatinine kimberly aranceOrdered By: Reyna Monzon on 05-25-2024 Estimated Creatinine Clearance Calc 81.14 ml/min [facility] Glomerular filtration rate ( GFR) estimationOrdered By: Reyna Monzon on 05-25-2024 Estimated GFR (MDRD) Non-Af Amer 67 mL/min >60 [facility] Comment on above: Non- GFR Calc Glucose measurementOrdered B y: Reyna Monzon on 05-25-2024 Glucose [Mass/Vol] 289 mg/dL High 74-106 [facility] Comment on above: Glucose result great er than or equal to 200 mg/dLsuggests DIABETES MELLITUS per A.D.A. criteria. Hematocrit Auto (Bld) [Volum e fraction]Ordered By: Reyna Monzon on 05-25-2024 Hematocrit (Bld) [Volume fraction] 40.0 % 37-47 [facility] Hemoglobin measurementOrdere d By: Reyna Monzon on 05-25-2024 Hemoglobin (Bld) [Mass/Vol] 13.0 g/dL 12.0-15.0 [facility] Immature granulocytes/100 WB C Auto (Bld)Ordered By: Reyna Monzon on 05-25-2024 Immature granulocytes/100 WBC (Bld) 0.300 % 0.0-0.9 [facility] Comment on above: IG% - Immature Granu locytes (promyelocytes, myelocytes and metamyelocytes) > 1% indicates that a LEFT SHIFT is Present. Laboratory - Chemistry and C hemistry - challengeOrdered By: Reyna Monzon on 05-25-2024 AST [Catalytic activity/Vol] 15 U/L 15-37 [facility] Lipase measurementOrdered By : Reyna Monzon on 05-25-2024 Lipase [Catalytic activity/Vol] 15 U/L 13-75 [facility] Comment on above: Please note:LIPASE r evised reference range effective 22. New Lipase methodology. Expected to produce lower values than the previous assay method. NEW Reference Range: 13 - 75 U/L Lymphocytes Auto (Unsp spec) [#/Vol]Ordered By: Reyna Monzon on 05-25-2024 Lymphocytes (Bld) [#/Vol] 0.73 10*3/uL Low 0.83-4.51 [facility] Lymphocytes/100 WBC Auto (Un sp spec)Ordered By: Reyna Monzon on 05-25-2024 Lymphocytes/100 WBC (Bld) 10.3 % Low 19-41 [facility] MCV (mean corpuscular volume ) determinationOrdered By: Reyna Monzon on 05-25-2024 MCV (RBC) [Entitic vol] 89.3 fL 81-99 [facility] Mean corpuscular hemoglobin (MCH) determinationOrdered By: Reyna Monzon on 05-25-2024 MCH (RBC) [Entitic mass] 29.0 pg 27.0-32.0 [facility] Mean corpuscular hemoglobin concentration (MCHC) determinationOrdered By: Reyna Monzon on 05-25-2024 MCHC (RBC) [Mass/Vol] 32.5 g/dL 32-36 [facility] Mean platelet volume determi nationOrdered By: Reyna Monzon on 05-25-2024 Platelet mean volume (Bld) [Entitic vol] 12.7 fL High 6.2-12.0 [facility] Monocyte percentageOrdered B y: Reyna Monzon on 05-25-2024 Monocytes/100 WBC (Bld) 6.2 % 0-10 [facility] Neutrophil percentageOrdered By: Reyna Monzon on 05-25-2024 Neutrophils/100 WBC (Bld) 79.1 % High 47-70 [facility] Nucleated red blood cell per centageOrdered By: Reyna Monzon on 05-25-2024 Nucleated RBC/100 WBC (Bld) [Ratio] 0 % 0-5 [facility] Platelet countOrdered By: Elias Monzon on 05-25-2024 Platelets (Bld) [#/Vol] 173 10*3/uL 150-450 [facility] Potassium measurementOrdered By: Reyna Monzon on 05-25-2024 Potassium [Moles/Vol] 4.2 mmol/L 3.5-5.1 [facility] RBC Auto (Bld) [#/Vol]Ordere d By: Reyna Monzon on 05-25-2024 RBC (Bld) [#/Vol] 4.48 10*6/uL 4.2-5.4 [facility] Serum anion gap measurementO rdered By: Reyna Monzon on 05-25-2024 Anion gap [Moles/Vol] 8 mmol/L 5-15 [facility] Serum globulin measurementOr dered By: Reyna Monzon on 05-25-2024 Globulin (S) [Mass/Vol] 3.6 g/dL 2.2-4.2 [facility] Serum or plasma alanine ramírez otransferase (ALT) measurementOrdered By: Reyna Monzon on 05-25-2024 ALT [Catalytic activity/Vol] 20 U/L 13-56 [facility] Serum or plasma albumin zora urement (mass/volume)Ordered By: Reyna Monzon on 05-25-2024 Albumin [Mass/Vol] 3.3 g/dL 3.2-5.0 [facility] Serum or plasma alkaline dhiraj sphatase measurementOrdered By: Reyna Monzon on 05-25-2024 ALP [Catalytic activity/Vol] 82 U/L 45-117 [facility] Serum or plasma calcium zora urement (mass/volume)Ordered By: Reyna Monzon on 05-25-2024 Calcium [Mass/Vol] 9.1 mg/dL 8.5-10.1 [facility] Serum or plasma creatinine m easurement (mass/volume)Ordered By: Reyna Monzon on 05-25-2024 Creatinine [Mass/Vol] 0.87 mg/dL 0.55-1.02 [facility] Comment on above: The validity of the calculated GFR & GFRAA in patients over 70 years has not been determined. Clinical correlation is essential. Serum or plasma urea nitroge n measurement (mass/volume)Ordered By: Reyna Monzon on 05-25-2024 Urea nitrogen [Mass/Vol] 20 mg/dL High 7-18 [facility] Sodium levelOrdered By: Sammy Monzon on 05-25-2024 Sodium [Moles/Vol] 136 mmol/L 136-145 [facility] Total proteinOrdered By: Sultana Monzon on 05-25-2024 Protein [Mass/Vol] 6.9 g/dL 6.4-8.2 [facility] Troponin IOrdered By: Reyna Monzon on 05-25-2024 Troponin I High Sensitivity 13 pg/mL 3.0-54.0 [facility] Comment on above: Please Note: New Mariajose t Units and Gender Specific Reference Ranges. For more information see Policy Stat Procedure [place] High Sensitivity Troponin (TNIH) and attachments. White blood cell (WBC) count Ordered By: Reyna Monzon on 05-25-2024 WBC (Bld) [#/Vol] 7.1 10*3/uL 4.4-11.0 [facility] HEMOGLOBIN A1C (POC)on 05-23 HbA1c (Bld) [Mass fraction] 6.9 % Abnormal 4.3 - 5.6 % [facility] Comment on above: Location:[facility], [address], [place], [address] Point of care (POC) Hemoglobin A1c (HGBA1C) [...] specific diabetes management situations: The POC device operations executive provides a normal range of 4.2% to 6.5% for the HGBA1C POC test. However, the [place] [employer] guidelines indicate that patients with [...] Interpretation and review of laboratory results Abnormal [facility] XR Chest PA and Lateralon IMPRESSION: No acute radiographic abnormality. Automotive Lot Attendant: EVIE Transcribe Date/Time: Apr 18 2024 10:00A Dictated by : STEVEN JOHNSON MD This examination was interpreted and the report reviewed and electronically signed by: STEVEN JOHNSON MD on Apr 18 2024 10:01AM [facility] DIVISION OF RADIOLOGY * * [...] the thoracic spine. DIVISION OF RADIOLOGY Provider, [facility] - 04/18/2024 * * *Final Report* * [...] spine. IMPRESSION IMPRESSION: No acute radiographic abnormality. Automotive Lot Attendant: [email or web address] Transcribe Date/Time: Apr 18 2024 10:00A Dictated by : STEVEN JOHNSON MD This examination was interpreted and the report reviewed and electronically signed by: STEVEN JOHNSON MD on Apr 18 2024 10:01AM [facility] Radiology Study observation (narrative) Jeremias [facility] XR Chest PA and LateralOrder ed By: [facility] Provider on 04-18-2024 [facility] NITRIC OXIDE, EXHALEDon - MuniraswethaZora RPF T 03/30/2024 1:40 PM RESPIRATORY THERAPY [...] 02/23/2019 24.0 04/18/2017 56.0 (A) NAME: Zora CortesJAI PATIENT NAME: Attila Kidd DATE: March 30, 2024 TIME: 1:40 PM [facility] Absolute lymphocyte countOrd ered By: Tierney Francis on 11-28-2023 Lymphocytes Auto (Unsp spec) [#/Vol] 0.85 10*3/uL 0.83-4.51 [facility] Automated lymphocyte count a s percentage of total leukocytesOrdered By: Tierney Francis on 11-28-2023 Lymphocytes/100 WBC Auto (Unsp spec) 15.1 % 19-41 [facility] Basophil percentageOrdered B y: Tierney Francis on 11-28-2023 Basophils/100 WBC (Bld) 0.4 % 0-1 [facility] Chloride [Moles/Vol] 102 mmol/L 98-107 [facility] Eosinophils/100 WBC (Bld) 4.6 % 0-5 [facility] Glucose [Mass/Vol] 325 mg/dL 74-106 [facility] Comment on above: Glucose result great er than or equal to 200 mg/dLsuggests DIABETES MELLITUS per A.D.A. criteria. Hemoglobin (Bld) [Mass/Vol] 12.5 g/dL 12.0-15.0 [facility] Monocytes/100 WBC (Bld) 8.2 % 0-10 [facility] Neutrophils (Bld) [#/Vol] 4.0 10*3/uL 2.0-7.7 [facility] Neutrophils/100 WBC (Bld) 71.5 % 47-70 [facility] Potassium [Moles/Vol] 3.9 mmol/L 3.5-5.1 [facility] Sodium [Moles/Vol] 136 mmol/L 136-145 [facility] WBC (Bld) [#/Vol] 5.6 10*3/uL 4.4-11.0 [facility] Determination of erythrocyte mean corpuscular volume (MCV)Ordered By: Tierney Francis on 11-28-2023 MCV (RBC) [Entitic vol] 90.1 fL 81-99 [facility] Erythrocyte distribution wid th ratioOrdered By: Tierney Francis on 11-28-2023 Erythrocyte distribution width (RBC) [Ratio] 12.7 % 11.6-14.6 [facility] Erythrocyte distribution wid th standard deviationOrdered By: Tierney Francis on 11-28-2023 Erythrocyte distribution width (RBC) [Entitic vol] 41.8 fL 35.1-43.9 [facility] Hematocrit Auto (Bld) [Volum e fraction]Ordered By: Tierney Francis on 11-28-2023 Hematocrit (Bld) [Volume fraction] 39.3 % 37-47 [facility] Immature granulocytes/100 WB C Auto (Bld)Ordered By: Tierney Francis on 11-28-2023 Immature granulocytes/100 WBC (Bld) 0.200 % 0.0-0.9 [facility] Comment on above: IG% - Immature Granu locytes (promyelocytes, myelocytes and metamyelocytes) > 1% indicates that a LEFT SHIFT is Present. Laboratory - Chemistry and C hemistry - challengeOrdered By: Tierney Francis on 11-28-2023 CO2 [Moles/Vol] 31.0 mmol/L 21.0-32.0 [facility] Urea nitrogen/Creatinine [Mass ratio] 18.2 mg/mg 10-20 [facility] Laboratory - Hematology and Cell countsOrdered By: Tierney Francis on 11-28-2023 MCH (RBC) [Entitic mass] 28.7 pg 27.0-32.0 [facility] MCHC (RBC) [Mass/Vol] 31.8 g/dL 32-36 [facility] Nucleated RBC/100 WBC (Bld) [Ratio] 0 % 0-5 [facility] Platelet mean volume (Bld) [Entitic vol] 12.4 fL 6.2-12.0 [facility] Platelets (Bld) [#/Vol] 181 10*3/uL 150-450 [facility] No Panel InformationOrdered By: Tierney Francis on 11-28-2023 Estimated Creatinine Clearance Calc 84.86 ml/min [facility] Estimated GFR (MDRD) Amer 80 mL/min >60 [facility] Comment on above: GFR Calc Estimated GFR (MDRD) Non-Af Amer 66 mL/min >60 [facility] Comment on above: Non- GFR Calc RBC Auto (Bld) [#/Vol]Ordere d By: Tierney Francis on 11-28-2023 RBC (Bld) [#/Vol] 4.36 10*6/uL 4.2-5.4 [facility] Serum or plasma calcium zora urement (mass/volume)Ordered By: Tierney Francis on 11-28-2023 Calcium [Mass/Vol] 9.1 mg/dL 8.5-10.1 [facility] Serum or plasma creatinine m easurement (mass/volume)Ordered By: Tierney Francis on 11-28-2023 Creatinine [Mass/Vol] 0.88 mg/dL 0.55-1.02 [facility] Comment on above: The validity of the calculated GFR & GFRAA in patients over 70 years has not been determined. Clinical correlation is essential. Serum or plasma urea nitroge n measurement (mass/volume)Ordered By: Tierney Francis on 11-28-2023 Urea nitrogen [Mass/Vol] 16 mg/dL 7-18 [facility] Thin prep Papanicolaou smear with manual screeningOrdered By: Tierney Francis on 11-28-2023 Thin prep Papanicolaou smear with manual screening 3 5-15 [facility] Thin prep Papanicolaou smear with manual screening 309 mg/dL 74-106 [facility] Comment on above: MANAGEMENT OF PATIEN T CARE PER NURSING PROTOCOL Thin prep Papanicolaou smear with manual screeningOrdered By: Tierney Francis on 11-07-2023 Thin prep Papanicolaou smear with manual screening 282 mg/dL -106 [facility] Comment on above: MANAGEMENT OF PATIEN T CARE PER NURSING PROTOCOL Absolute lymphocyte countOrd ered By: Holland Sanches on 11-06-2023 Lymphocytes Auto (Unsp spec) [#/Vol] 0.97 10*3/uL 0.83-4.51 [facility] Automated lymphocyte count a s percentage of total leukocytesOrdered By: Holland Sanches on 11-06-2023 Lymphocytes/100 WBC Auto (Unsp spec) 15.2 % 19-41 [facility] Basophil percentageOrdered B y: Holland Sanches on 11-06-2023 Basophils/100 WBC (Bld) 0.5 % 0-1 [facility] Chloride [Moles/Vol] 103 mmol/L 98-107 [facility] Eosinophils/100 WBC (Bld) 5.8 % 0-5 [facility] Glucose [Mass/Vol] 160 mg/dL 74-106 [facility] Comment on above: Fasting Glucose resu lt greater than or equal to 126 mg/dL suggests DIABETES MELLITUS per A.D.A. criteria. Hemoglobin (Bld) [Mass/Vol] 12.8 g/dL 12.0-15.0 [facility] Monocytes/100 WBC (Bld) 6.9 % 0-10 [facility] Neutrophils (Bld) [#/Vol] 4.6 10*3/uL 2.0-7.7 [facility] Neutrophils/100 WBC (Bld) 71.4 % 47-70 [facility] Potassium [Moles/Vol] 4.0 mmol/L 3.5-5.1 [facility] Sodium [Moles/Vol] 138 mmol/L 136-145 [facility] WBC (Bld) [#/Vol] 6.4 10*3/uL 4.4-11.0 [facility] Determination of erythrocyte mean corpuscular volume (MCV)Ordered By: Holland Sanches on 11-06-2023 MCV (RBC) [Entitic vol] 89.7 fL 81-99 [facility] Erythrocyte distribution wid th ratioOrdered By: Holland Sanches on 11-06-2023 Erythrocyte distribution width (RBC) [Ratio] 13.2 % 11.6-14.6 [facility] Erythrocyte distribution wid th standard deviationOrdered By: Holland Sanches on 11-06-2023 Erythrocyte distribution width (RBC) [Entitic vol] 42.9 fL 35.1-43.9 [facility] Hematocrit Auto (Bld) [Volum e fraction]Ordered By: Holland Sanches on 11-06-2023 Hematocrit (Bld) [Volume fraction] 39.0 % 37-47 [facility] Immature granulocytes/100 WB C Auto (Bld)Ordered By: Holland Sanches on 11-06-2023 Immature granulocytes/100 WBC (Bld) 0.200 % 0.0-0.9 [facility] Comment on above: IG% - Immature Granu locytes (promyelocytes, myelocytes and metamyelocytes) > 1% indicates that a LEFT SHIFT is Present. Laboratory - Chemistry and C hemistry - challengeOrdered By: Holland Sanches on 11-06-2023 CO2 [Moles/Vol] 29.0 mmol/L 21.0-32.0 [facility] Urea nitrogen/Creatinine [Mass ratio] 28.9 mg/mg 10-20 [facility] Laboratory - Hematology and Cell countsOrdered By: Holland Sanches on 11-06-2023 MCH (RBC) [Entitic mass] 29.4 pg 27.0-32.0 [facility] MCHC (RBC) [Mass/Vol] 32.8 g/dL 32-36 [facility] Nucleated RBC/100 WBC (Bld) [Ratio] 0 % 0-5 [facility] Platelet mean volume (Bld) [Entitic vol] 13.0 fL 6.2-12.0 [facility] Platelets (Bld) [#/Vol] 200 10*3/uL 150-450 [facility] No Panel InformationOrdered By: Holland Sacnhes on 11-06-2023 Troponin I High Sensitivity 12 pg/mL 3.0-54.0 [facility] Comment on above: Please Note: New Mariajose t Units and Gender Specific Reference Ranges. For more information see Policy Stat Procedure [place] High Sensitivity Troponin (TNIH) and attachments. Estimated GFR (MDRD) Amer 81 mL/min >60 [facility] Comment on above: GFR Calc Estimated GFR (MDRD) Non-Af Amer 67 mL/min >60 [facility] Comment on above: Non- GFR Calc RBC Auto (Bld) [#/Vol]Ordere d By: Holland Sanches on 11-06-2023 RBC (Bld) [#/Vol] 4.35 10*6/uL 4.2-5.4 [facility] Serum or plasma calcium zora urement (mass/volume)Ordered By: Holland Sanches on 11-06-2023 Calcium [Mass/Vol] 9.1 mg/dL 8.5-10.1 [facility] Serum or plasma creatinine m easurement (mass/volume)Ordered By: Holland Sanches on 11-06-2023 Creatinine [Mass/Vol] 0.87 mg/dL 0.55-1.02 [facility] Comment on above: The validity of the calculated GFR & GFRAA in patients over 70 years has not been determined. Clinical correlation is essential. Serum or plasma urea nitroge n measurement (mass/volume)Ordered By: Holland Sanches on 11-06-2023 Urea nitrogen [Mass/Vol] 25 mg/dL 7-18 [facility] Thin prep Papanicolaou smear with manual screeningOrdered By: Holland Sanches on 11-06-2023 Thin prep Papanicolaou smear with manual screening 6 - [facility] US DVT LOWER RTon 10-31-2023 US [...] imaged segments of the right lower extremity. Automotive Lot Attendant: [id number] Transcribe Date/Time: Oct 31 2023 1:20P Dictated by : ENDY GOODMAN MD This examination was interpreted and the report reviewed and electronically signed by: ENDY GOODMAN MD on Oct 31 2023 1:21PM EST [id number] Normal [facility] US Lower extremity vein - ri chloe 10-31-2023 [facility] Absolute lymphocyte countOrd ered By: Tierney Francis on 10-28-2023 Lymphocytes Auto (Unsp spec) [#/Vol] 0.72 10*3/uL 0.83-4.51 [facility] Automated lymphocyte count a s percentage of total leukocytesOrdered By: Tierney Francis on 10-28-2023 Lymphocytes/100 WBC Auto (Unsp spec) 14.4 % 19-41 [facility] Basophil percentageOrdered B y: Tierney Francis on 10-28-2023 Basophils/100 WBC (Bld) 0.6 % 0-1 [facility] Chloride [Moles/Vol] 103 mmol/L 98-107 [facility] Eosinophils/100 WBC (Bld) 5.4 % 0-5 [facility] Glucose [Mass/Vol] 315 mg/dL 74-106 [facility] Comment on above: Glucose result great er than or equal to 200 mg/dLsuggests DIABETES MELLITUS per A.D.A. criteria. Hemoglobin (Bld) [Mass/Vol] 12.5 g/dL 12.0-15.0 [facility] Monocytes/100 WBC (Bld) 6.2 % 0-10 [facility] Neutrophils (Bld) [#/Vol] 3.7 10*3/uL 2.0-7.7 [facility] Neutrophils/100 WBC (Bld) 73.4 % 47-70 [facility] Potassium [Moles/Vol] 4.0 mmol/L 3.5-5.1 [facility] Sodium [Moles/Vol] 136 mmol/L 136-145 [facility] WBC (Bld) [#/Vol] 5.0 10*3/uL 4.4-11.0 [facility] Determination of erythrocyte mean corpuscular volume (MCV)Ordered By: Tierney Francis on 10-28-2023 MCV (RBC) [Entitic vol] 89.3 fL 81-99 [facility] Erythrocyte distribution wid th ratioOrdered By: Tierney Francis on 10-28-2023 Erythrocyte distribution width (RBC) [Ratio] 12.9 % 11.6-14.6 [facility] Erythrocyte distribution wid th standard deviationOrdered By: Tierney Francis on 10-28-2023 Erythrocyte distribution width (RBC) [Entitic vol] 42.0 fL 35.1-43.9 [facility] Hematocrit Auto (Bld) [Volum e fraction]Ordered By: Tierney Francis on 10-28-2023 Hematocrit (Bld) [Volume fraction] 38.4 % 37-47 [facility] Immature granulocytes/100 WB C Auto (Bld)Ordered By: Tierney Francis on 10-28-2023 Immature granulocytes/100 WBC (Bld) 0.000 % 0.0-0.9 [facility] Comment on above: IG% - Immature Granu locytes (promyelocytes, myelocytes and metamyelocytes) > 1% indicates that a LEFT SHIFT is Present. Laboratory - Chemistry and C hemistry - challengeOrdered By: Tierney Francis on 10-28-2023 CO2 [Moles/Vol] 29.0 mmol/L 21.0-32.0 [facility] Urea nitrogen/Creatinine [Mass ratio] 22.1 mg/mg 10-20 [facility] Laboratory - Hematology and Cell countsOrdered By: Tierney Francis on 10-28-2023 MCH (RBC) [Entitic mass] 29.1 pg 27.0-32.0 [facility] MCHC (RBC) [Mass/Vol] 32.6 g/dL 32-36 [facility] Nucleated RBC/100 WBC (Bld) [Ratio] 0 % 0-5 [facility] Platelet mean volume (Bld) [Entitic vol] 12.1 fL 6.2-12.0 [facility] Platelets (Bld) [#/Vol] 170 10*3/uL 150-450 [facility] No Panel InformationOrdered By: Tierney Francis on 10-28-2023 Estimated Creatinine Clearance Calc 78.68 ml/min [facility] Estimated GFR (MDRD) Amer 73 mL/min >60 [facility] Comment on above: GFR Calc Estimated GFR (MDRD) Non-Af Amer 60 mL/min >60 [facility] Comment on above: Non- GFR Calc Troponin I High Sensitivity 10 pg/mL 3.0-54.0 [facility] Comment on above: Please Note: New Mariajose t Units and Gender Specific Reference Ranges. For more information see Policy Stat Procedure [place] High Sensitivity Troponin (TNIH) and attachments. RBC Auto (Bld) [#/Vol]Ordere d By: Tierney Francis on 10-28-2023 RBC (Bld) [#/Vol] 4.30 10*6/uL 4.2-5.4 [facility] Serum or plasma calcium zora urement (mass/volume)Ordered By: Tierney Francis on 10-28-2023 Calcium [Mass/Vol] 8.8 mg/dL 8.5-10.1 [facility] Serum or plasma creatinine m easurement (mass/volume)Ordered By: Tierney Francis on 10-28-2023 Creatinine [Mass/Vol] 0.95 mg/dL 0.55-1.02 [facility] Comment on above: The validity of the calculated GFR & GFRAA in patients over 70 years has not been determined. Clinical correlation is essential. Serum or plasma urea nitroge n measurement (mass/volume)Ordered By: Tierney Francis on 10-28-2023 Urea nitrogen [Mass/Vol] 21 mg/dL 7-18 [facility] Thin prep Papanicolaou smear with manual screeningOrdered By: Tierney Francis on 10-28-2023 Thin prep Papanicolaou smear with manual screening 288 mg/dL 74-106 [facility] Comment on above: MANAGEMENT OF PATIEN T CARE PER NURSING PROTOCOL Thin prep Papanicolaou smear with manual screening 274 mg/dL 74-106 [facility] Comment on above: MANAGEMENT OF PATIEN T CARE PER NURSING PROTOCOL Thin prep Papanicolaou smear with manual screening 4 5-15 [facility] Absolute lymphocyte countOrd ered By: Amber Martino on 10-01-2023 Lymphocytes Auto (Unsp spec) [#/Vol] 0.78 10*3/uL 0.83-4.51 [facility] Automated lymphocyte count a s percentage of total leukocytesOrdered By: Amber Martino on 10-01-2023 Lymphocytes/100 WBC Auto (Unsp spec) 9.3 % 19-41 [facility] Basophil percentageOrdered B y: Amber Martino on 10-01-2023 Basophils/100 WBC (Bld) 0.4 % 0-1 [facility] Chloride [Moles/Vol] 103 mmol/L 98-107 [facility] Eosinophils/100 WBC (Bld) 1.2 % 0-5 [facility] Glucose [Mass/Vol] 163 mg/dL 74-106 [facility] Comment on above: Fasting Glucose resu lt greater than or equal to 126 mg/dL suggests DIABETES MELLITUS per A.D.A. criteria. Hemoglobin (Bld) [Mass/Vol] 12.7 g/dL 12.0-15.0 [facility] Monocytes/100 WBC (Bld) 7.6 % 0-10 [facility] Neutrophils (Bld) [#/Vol] 6.9 10*3/uL 2.0-7.7 [facility] Neutrophils/100 WBC (Bld) 81.4 % 47-70 [facility] Potassium [Moles/Vol] 3.9 mmol/L 3.5-5.1 [facility] Sodium [Moles/Vol] 138 mmol/L 136-145 [facility] WBC (Bld) [#/Vol] 8.4 10*3/uL 4.4-11.0 [facility] Determination of erythrocyte mean corpuscular volume (MCV)Ordered By: Amber Martino on 10-01-2023 MCV (RBC) [Entitic vol] 89.2 fL 81-99 [facility] Erythrocyte distribution wid th ratioOrdered By: Amber Martino on 10-01-2023 Erythrocyte distribution width (RBC) [Ratio] 12.5 % 11.6-14.6 [facility] Erythrocyte distribution wid th standard deviationOrdered By: Amber Martino on 10-01-2023 Erythrocyte distribution width (RBC) [Entitic vol] 41.0 fL 35.1-43.9 [facility] Hematocrit Auto (Bld) [Volum e fraction]Ordered By: Amber Martino on 10-01-2023 Hematocrit (Bld) [Volume fraction] 39.6 % 37-47 [facility] Immature granulocytes/100 WB C Auto (Bld)Ordered By: Amber Martino on 10-01-2023 Immature granulocytes/100 WBC (Bld) 0.100 % 0.0-0.9 [facility] Comment on above: IG% - Immature Granu locytes (promyelocytes, myelocytes and metamyelocytes) > 1% indicates that a LEFT SHIFT is Present. Laboratory - Chemistry and C hemistry - challengeOrdered By: Amber Martino on 10-01-2023 CO2 [Moles/Vol] 29.0 mmol/L 21.0-32.0 [facility] Urea nitrogen/Creatinine [Mass ratio] 15.7 mg/mg 10-20 [facility] Laboratory - Hematology and Cell countsOrdered By: Amber Martino on 10-01-2023 MCH (RBC) [Entitic mass] 28.6 pg 27.0-32.0 [facility] MCHC (RBC) [Mass/Vol] 32.1 g/dL 32-36 [facility] Nucleated RBC/100 WBC (Bld) [Ratio] 0 % 0-5 [facility] Platelet mean volume (Bld) [Entitic vol] 12.1 fL 6.2-12.0 [facility] Platelets (Bld) [#/Vol] 182 10*3/uL 150-450 [facility] Laboratory - Microbiology an d Antimicrobial susceptibilityOrdered By: Amber Martino on 10-01-2023 SARS-CoV-2 (COVID-19) RNA RAYMOND+probe Ql (Unsp spec) [facility] No Panel InformationOrdered By: Amber Martino on 10-01-2023 Estimated Creatinine Clearance Calc 92.45 ml/min [facility] Estimated GFR (MDRD) Amer 94 mL/min >60 [facility] Comment on above: GFR Calc Estimated GFR (MDRD) Non-Af Amer 78 mL/min >60 [facility] Comment on above: Non- GFR Calc Troponin I High Sensitivity 8 pg/mL 3.0-54.0 [facility] Comment on above: Please Note: New Mariajose t Units and Gender Specific Reference Ranges. For more information see Policy Stat Procedure [place] High Sensitivity Troponin (TNIH) and attachments. RBC Auto (Bld) [#/Vol]Ordere d By: Amber Martino on 10-01-2023 RBC (Bld) [#/Vol] 4.44 10*6/uL 4.2-5.4 [facility] Serum or plasma calcium zora urement (mass/volume)Ordered By: Amber Martino on 10-01-2023 Calcium [Mass/Vol] 9.0 mg/dL 8.5-10.1 [facility] Serum or plasma creatinine m easurement (mass/volume)Ordered By: Amber Martino on 10-01-2023 Creatinine [Mass/Vol] 0.77 mg/dL 0.55-1.02 [facility] Comment on above: The validity of the calculated GFR & GFRAA in patients over 70 years has not been determined. Clinical correlation is essential. Serum or plasma urea nitroge n measurement (mass/volume)Ordered By: Amber Martino on 10-01-2023 Urea nitrogen [Mass/Vol] 12 mg/dL 7-18 [facility] Thin prep Papanicolaou smear with manual screeningOrdered By: Amber Martino on 10-01-2023 Thin prep Papanicolaou smear with manual screening 6 5-15 [facility] Absolute lymphocyte countOrd ered By: Nik Nunez on 09-21-2023 Lymphocytes Auto (Unsp spec) [#/Vol] 1.12 10*3/uL 0.83-4.51 [facility] Automated lymphocyte count a s percentage of total leukocytesOrdered By: Nik Nunez on 09-21-2023 Lymphocytes/100 WBC Auto (Unsp spec) 17.9 % 19-41 [facility] Basophil percentageOrdered B y: Nik Nunez on 09-21-2023 Basophils/100 WBC (Bld) 0.3 % 0-1 [facility] Chloride [Moles/Vol] 107 mmol/L 98-107 [facility] Eosinophils/100 WBC (Bld) 5.8 % 0-5 [facility] Glucose [Mass/Vol] 148 mg/dL 74-106 [facility] Comment on above: Fasting Glucose resu lt greater than or equal to 126 mg/dL suggests DIABETES MELLITUS per A.D.A. criteria. Hemoglobin (Bld) [Mass/Vol] 12.5 g/dL 12.0-15.0 [facility] Monocytes/100 WBC (Bld) 8.3 % 0-10 [facility] Neutrophils (Bld) [#/Vol] 4.2 10*3/uL 2.0-7.7 [facility] Neutrophils/100 WBC (Bld) 67.5 % 47-70 [facility] Potassium [Moles/Vol] 3.8 mmol/L 3.5-5.1 [facility] Sodium [Moles/Vol] 139 mmol/L 136-145 [facility] WBC (Bld) [#/Vol] 6.3 10*3/uL 4.4-11.0 [facility] Determination of erythrocyte mean corpuscular volume (MCV)Ordered By: Nik Nunez on 09-21-2023 MCV (RBC) [Entitic vol] 88.2 fL 81-99 [facility] Erythrocyte distribution wid th ratioOrdered By: Nik Nunez on 09-21-2023 Erythrocyte distribution width (RBC) [Ratio] 12.6 % 11.6-14.6 [facility] Erythrocyte distribution wid th standard deviationOrdered By: Nik Nunez on 09-21-2023 Erythrocyte distribution width (RBC) [Entitic vol] 40.6 fL 35.1-43.9 [facility] Hematocrit Auto (Bld) [Volum e fraction]Ordered By: Nik Nunez on 09-21-2023 Hematocrit (Bld) [Volume fraction] 38.8 % 37-47 [facility] Immature granulocytes/100 WB C Auto (Bld)Ordered By: Nik Nunez on 09-21-2023 Immature granulocytes/100 WBC (Bld) 0.200 % 0.0-0.9 [facility] Comment on above: IG% - Immature Granu locytes (promyelocytes, myelocytes and metamyelocytes) > 1% indicates that a LEFT SHIFT is Present. Laboratory - Chemistry and C hemistry - challengeOrdered By: Nik Nunez on 09-21-2023 CO2 [Moles/Vol] 29.0 mmol/L 21.0-32.0 [facility] Urea nitrogen/Creatinine [Mass ratio] 16.0 mg/mg 10-20 [facility] Laboratory - Hematology and Cell countsOrdered By: Nik Nunez on 09-21-2023 MCH (RBC) [Entitic mass] 28.4 pg 27.0-32.0 [facility] MCHC (RBC) [Mass/Vol] 32.2 g/dL 32-36 [facility] Nucleated RBC/100 WBC (Bld) [Ratio] 0 % 0-5 [facility] Platelet mean volume (Bld) [Entitic vol] 11.8 fL 6.2-12.0 [facility] Platelets (Bld) [#/Vol] 209 10*3/uL 150-450 [facility] No Panel InformationOrdered By: Nik Nunez on 09-21-2023 Troponin I High Sensitivity 10 pg/mL 3.0-54.0 [facility] Comment on above: Please Note: New Mariajose t Units and Gender Specific Reference Ranges. For more information see Policy Stat Procedure [place] High Sensitivity Troponin (TNIH) and attachments. Estimated Creatinine Clearance Calc 74.72 ml/min [facility] Estimated GFR (MDRD) Amer 69 mL/min >60 [facility] Comment on above: GFR Calc Estimated GFR (MDRD) Non-Af Amer 57 mL/min >60 [facility] Comment on above: Non- GFR Calc RBC Auto (Bld) [#/Vol]Ordere d By: Nik Nunez on 09-21-2023 RBC (Bld) [#/Vol] 4.40 10*6/uL 4.2-5.4 [facility] Serum or plasma calcium zora urement (mass/volume)Ordered By: Nik Nunez on 09-21-2023 Calcium [Mass/Vol] 9.0 mg/dL 8.5-10.1 [facility] Serum or plasma creatinine m easurement (mass/volume)Ordered By: Nik Nunez on 09-21-2023 Creatinine [Mass/Vol] 1.00 mg/dL 0.55-1.02 [facility] Comment on above: The validity of the calculated GFR & GFRAA in patients over 70 years has not been determined. Clinical correlation is essential. Serum or plasma urea nitroge n measurement (mass/volume)Ordered By: Nik Nunez on 09-21-2023 Urea nitrogen [Mass/Vol] 16 mg/dL 7-18 [facility] Thin prep Papanicolaou smear with manual screeningOrdered By: Nik Nunez on 09-21-2023 Thin prep Papanicolaou smear with manual screening 3 5-15 [facility] Absolute lymphocyte countOrd ered By: Benjamín Stanford on 09-16-2023 Lymphocytes Auto (Unsp spec) [#/Vol] 1.04 10*3/uL 0.83-4.51 [facility] Automated lymphocyte count a s percentage of total leukocytesOrdered By: Benjamín Stanford on 09-16-2023 Lymphocytes/100 WBC Auto (Unsp spec) 14.9 % 19-41 [facility] Basophil percentageOrdered B y: Benjamín Stanford on 09-16-2023 Basophils/100 WBC (Bld) 0.7 % 0-1 [facility] Chloride [Moles/Vol] 104 mmol/L 98-107 [facility] Eosinophils/100 WBC (Bld) 4.1 % 0-5 [facility] Glucose [Mass/Vol] 144 mg/dL 74-106 [facility] Comment on above: Fasting Glucose resu lt greater than or equal to 126 mg/dL suggests DIABETES MELLITUS per A.D.A. criteria. Hemoglobin (Bld) [Mass/Vol] 13.0 g/dL 12.0-15.0 [facility] Monocytes/100 WBC (Bld) 7.7 % 0-10 [facility] Neutrophils (Bld) [#/Vol] 5.1 10*3/uL 2.0-7.7 [facility] Neutrophils/100 WBC (Bld) 72.2 % 47-70 [facility] Potassium [Moles/Vol] 3.7 mmol/L 3.5-5.1 [facility] Sodium [Moles/Vol] 137 mmol/L 136-145 [facility] WBC (Bld) [#/Vol] 7.0 10*3/uL 4.4-11.0 [facility] Determination of erythrocyte mean corpuscular volume (MCV)Ordered By: Benjamín Stanford on 09-16-2023 MCV (RBC) [Entitic vol] 88.9 fL 81-99 [facility] Erythrocyte distribution wid th ratioOrdered By: Benjamín Stanford on 09-16-2023 Erythrocyte distribution width (RBC) [Ratio] 12.5 % 11.6-14.6 [facility] Erythrocyte distribution wid th standard deviationOrdered By: Benjamín Stanford on 09-16-2023 Erythrocyte distribution width (RBC) [Entitic vol] 40.3 fL 35.1-43.9 [facility] Hematocrit Auto (Bld) [Volum e fraction]Ordered By: Benjamín Stanford on 09-16-2023 Hematocrit (Bld) [Volume fraction] 40.7 % 37-47 [facility] Immature granulocytes/100 WB C Auto (Bld)Ordered By: Benjamín Stanford on 09-16-2023 Immature granulocytes/100 WBC (Bld) 0.400 % 0.0-0.9 [facility] Comment on above: IG% - Immature Granu locytes (promyelocytes, myelocytes and metamyelocytes) > 1% indicates that a LEFT SHIFT is Present. Laboratory - Chemistry and C hemistry - challengeOrdered By: Benjamín Stanford on 09-16-2023 CO2 [Moles/Vol] 28.0 mmol/L 21.0-32.0 [facility] Urea nitrogen/Creatinine [Mass ratio] 21.6 mg/mg 10-20 [facility] Laboratory - Hematology and Cell countsOrdered By: Benjamín Stanford on 09-16-2023 MCH (RBC) [Entitic mass] 28.4 pg 27.0-32.0 [facility] MCHC (RBC) [Mass/Vol] 31.9 g/dL 32-36 [facility] Nucleated RBC/100 WBC (Bld) [Ratio] 0 % 0-5 [facility] Platelet mean volume (Bld) [Entitic vol] 12.2 fL 6.2-12.0 [facility] Platelets (Bld) [#/Vol] 230 10*3/uL 150-450 [facility] No Panel InformationOrdered By: Benjamín Stanford on 09-16-2023 Estimated Creatinine Clearance Calc 78.67 ml/min [facility] Estimated GFR (MDRD) Amer 75 mL/min >60 [facility] Comment on above: GFR Calc Estimated GFR (MDRD) Non-Af Amer 62 mL/min >60 [facility] Comment on above: Non- GFR Calc RBC Auto (Bld) [#/Vol]Ordere d By: Benjamín Stanford on 09-16-2023 RBC (Bld) [#/Vol] 4.58 10*6/uL 4.2-5.4 [facility] Serum or plasma calcium zora urement (mass/volume)Ordered By: Benjamín Stanford on 09-16-2023 Calcium [Mass/Vol] 9.2 mg/dL 8.5-10.1 [facility] Serum or plasma creatinine m easurement (mass/volume)Ordered By: Benjamín Stanford on 09-16-2023 Creatinine [Mass/Vol] 0.93 mg/dL 0.55-1.02 [facility] Comment on above: The validity of the calculated GFR & GFRAA in patients over 70 years has not been determined. Clinical correlation is essential. Serum or plasma thyroid stim ulating hormone (TSH) measurement (units/volume)Ordered By: Benjamín Stanford on 09-16-2023 TSH Qn 2.95 uIU/mL 0.358-3.74 [facility] Serum or plasma urea nitroge n measurement (mass/volume)Ordered By: Benjamín Stanford on 09-16-2023 Urea nitrogen [Mass/Vol] 20 mg/dL 7-18 [facility] Thin prep Papanicolaou smear with manual screeningOrdered By: Benjamín Stanford on 09-16-2023 Thin prep Papanicolaou smear with manual screening 5 -15 [facility] CBC W Auto Differential pane l (Bld)on 09-01-2023 Basophils (Bld) [#/Vol] 0.03 10*3/uL <0.11 k/uL [facility] Basophils/100 WBC (Bld) 0.4 % [facility] Differential cell count method Nom (Bld) Auto [facility] Eosinophils (Bld) [#/Vol] 0.26 10*3/uL <0.46 k/uL [facility] Eosinophils/100 WBC (Bld) 3.6 % [facility] Erythrocyte distribution width (RBC) [Ratio] 12.6 % 11.5 - 15.0 % [facility] Hematocrit (Bld) [Volume fraction] 39.8 % 36.0 - 46.0 % [facility] Hemoglobin (Bld) [Mass/Vol] 13.0 g/dL 11.5 - 15.5 g/dL [facility] Immature granulocytes (Bld) [#/Vol] <0.10 k/uL [facility] Immature granulocytes/100 WBC (Bld) 0.3 % [facility] Lymphocytes (Bld) [#/Vol] 0.48 10*3/uL Low 1.00 - 4.00 k/uL [facility] Lymphocytes/100 WBC (Bld) 6.6 % [facility] MCH (RBC) [Entitic mass] 29.3 pg 26. 0 - 34.0 pg [facility] MCHC (RBC) [Mass/Vol] 32.7 g/dL 30.5 - 36.0 g/dL [facility] MCV (RBC) [Entitic vol] 89.8 fL 80.0 - 100.0 fL [facility] Monocytes (Bld) [#/Vol] 0.46 10*3/uL <0.87 k/uL [facility] Monocytes/100 WBC (Bld) 6.3 % [facility] Neutrophils (Bld) [#/Vol] 6.05 10*3/uL 1.45 - 7.50 k/uL [facility] Neutrophils/100 WBC (Bld) 82.8 % [facility] Nucleated RBC (Bld) [#/Vol] <0.01 k/uL [facility] Nucleated RBC/100 WBC (Bld) [Ratio] 0.0 /100 WBC [facility] Platelet mean volume (Bld) [Entitic vol] 12.7 fL 9.0 - 12.7 fL [facility] Platelets (Bld) [#/Vol] 199 10*3/uL 150 - 400 k/uL [facility] RBC (Bld) [#/Vol] 4.43 10*6/uL 3.90 - 5.2 0 m/uL [facility] WBC (Bld) [#/Vol] 7.30 10*3/uL 3.70 - 11.00 k/uL [facility] No Panel Informationon 06-23 [facility] SPIROMETRY BASELINE ONLYon 1 08-24-2022 BCR38-06% PRE (L/S) 0.93 L/S [facility] FEV1 PRE (L) 1.64 L [facility] FEV1/FVC PRE (%) 67 % [facility] FVC PRE (L) 2.47 L [facility] PEF PRE (L/S) 5.38 L/S [facility] Absolute lymphocyte countOrd ered By: Jesus Kessler on 05-28-2023 Lymphocytes Auto (Unsp spec) [#/Vol] 1.01 10*3/uL 0.83-4.51 [facility] Basophil percentageOrdered B y: Jesus Kessler on 05-28-2023 Basophils/100 WBC (Bld) 0.5 % 0-1 [facility] Chloride [Moles/Vol] 106 mmol/L 98-107 [facility] Eosinophils/100 WBC (Bld) 4.4 % 0-5 [facility] Glucose [Mass/Vol] 170 mg/dL 74-106 [facility] Comment on above: Fasting Glucose resu lt greater than or equal to 126 mg/dL suggests DIABETES MELLITUS per A.D.A. criteria. Neutrophils (Bld) [#/Vol] 4.8 10*3/uL 2.0-7.7 [facility] Neutrophils/100 WBC (Bld) 72.7 % 47-70 [facility] Potassium [Moles/Vol] 4.3 mmol/L 3.5-5.1 [facility] Sodium [Moles/Vol] 138 mmol/L 136-145 [facility] WBC (Bld) [#/Vol] 6.5 10*3/uL 4.4-11.0 [facility] Blood erythrocytes count (nu mber/volume)Ordered By: Jesus Kessler on 05-28-2023 RBC (Bld) [#/Vol] 4.29 10*6/uL 4.2-5.4 [facility] Blood hemoglobin measurement (mass/volume)Ordered By: Jesus Kessler on 05-28-2023 Hemoglobin (Bld) [Mass/Vol] 12.7 g/dL 12.0-15.0 [facility] Blood lymphocytes/100 leukoc ytesOrdered By: Jesus Kessler on 05-28-2023 Lymphocytes/100 WBC (Bld) 15.4 % 19-41 [facility] Blood monocytes/100 leukocyt esOrdered By: Jesus Kessler on 05-28-2023 Monocytes/100 WBC (Bld) 7.0 % 0-10 [facility] Blood platelet mean volumeOr dered By: Jesus Kessler on 05-28-2023 Platelet mean volume (Bld) [Entitic vol] 11.6 fL 6.2-12.0 [facility] Determination of erythrocyte mean corpuscular volume (MCV)Ordered By: Jesus Kessler on 05-28-2023 MCV (RBC) [Entitic vol] 90.9 fL 81-99 [facility] Glucose Glucometer (BldC) [M ass/Vol]Ordered By: Jesus Kessler on 05-28-2023 Glucose [Mass/Vol] 168 mg/dL 74-106 [facility] Comment on above: MANAGEMENT OF PATIEN T CARE PER NURSING PROTOCOL Hematocrit Auto (Bld) [Volum e fraction]Ordered By: Jesus Kessler on 05-28-2023 Hematocrit (Bld) [Volume fraction] 39.0 % 37-47 [facility] Laboratory - Chemistry and C hemistry - challengeOrdered By: Jesus Kessler on 05-28-2023 CO2 [Moles/Vol] 31.0 mmol/L 21.0-32.0 [facility] Urea nitrogen/Creatinine [Mass ratio] 20.5 mg/mg 10-20 [facility] - Hematology and Cell countsOrdered By: Jesus Kessler on 05-28-2023 Erythrocyte distribution width (RBC) [Entitic vol] 41.7 fL 35.1-43.9 [facility] Erythrocyte distribution width (RBC) [Ratio] 12.9 % 11.6-14.6 [facility] Immature granulocytes/100 WBC (Bld) 0.000 % 0.0-0.9 [facility] Comment on above: IG% - Immature Granu locytes (promyelocytes, myelocytes and metamyelocytes) > 1% indicates that a LEFT SHIFT is Present. MCH (RBC) [Entitic mass] 29.6 pg 27.0-32.0 [facility] Nucleated RBC/100 WBC (Bld) [Ratio] 0 % 0-5 [facility] MCHC Auto (RBC) [Mass/Vol]Or dered By: Jesus Kessler on 05-28-2023 MCHC (RBC) [Mass/Vol] 32.6 g/dL 32-36 [facility] No Panel InformationOrdered By: Jesus Kessler on 05-28-2023 Troponin I High Sensitivity 9 pg/mL 3.0-54.0 [facility] Comment on above: Please Note: New Mariajose t Units and Gender Specific Reference Ranges. For more information see Policy Stat Procedure [place] High Sensitivity Troponin (TNIH) and attachments. Estimated GFR (MDRD) Amer 61 mL/min >60 [facility] Comment on above: GFR Calc Estimated GFR (MDRD) Non-Af Amer 50 mL/min >60 [facility] Comment on above: Non- GFR Calc Platelets bldOrdered By: Munira binta Victoria on 05-28-2023 Platelets (Bld) [#/Vol] 198 10*3/uL 150-450 [facility] Serum or plasma calcium zora urement (mass/volume)Ordered By: Jesus Kessler on 05-28-2023 Calcium [Mass/Vol] 8.8 mg/dL 8.5-10.1 [facility] Serum or plasma creatinine m easurement (mass/volume)Ordered By: Jesus Kessler on 05-28-2023 Creatinine [Mass/Vol] 1.12 mg/dL 0.55-1.02 [facility] Comment on above: The validity of the calculated GFR & GFRAA in patients over 70 years has not been determined. Clinical correlation is essential. Serum or plasma urea nitroge n measurement (mass/volume)Ordered By: Jesus Kessler on 05-28-2023 Urea nitrogen [Mass/Vol] 23 mg/dL 7-18 [facility] Thin prep Papanicolaou smear with manual screeningOrdered By: Jesus Kessler on 05-28-2023 Thin prep Papanicolaou smear with manual screening 1 5-15 [facility] Absolute lymphocyte countOrd ered By: Dr. Francis on 11-04-2022 Lymphocytes Auto (Unsp spec) [#/Vol] 1.20 10*3/uL 0.83-4.51 [facility] Basophil percentageOrdered B y: Dr. Francis on 11-04-2022 Basophils/100 WBC (Bld) 0.3 % 0-1 [facility] Chloride [Moles/Vol] 105 mmol/L 98-107 [facility] Eosinophils/100 WBC (Bld) 1.7 % 0-5 [facility] Glucose [Mass/Vol] 162 mg/dL 74-106 [facility] Comment on above: Fasting Glucose resu lt greater than or equal to 126 mg/dL suggests DIABETES MELLITUS per A.D.A. criteria. Neutrophils (Bld) [#/Vol] 4.5 10*3/uL 2.0-7.7 [facility] Neutrophils/100 WBC (Bld) 71.4 % 47-70 [facility] Potassium [Moles/Vol] 3.6 mmol/L 3.5-5.1 [facility] Sodium [Moles/Vol] 138 mmol/L 136-145 [facility] WBC (Bld) [#/Vol] 6.4 10*3/uL 4.4-11.0 [facility] Blood erythrocytes count (nu mber/volume)Ordered By: Dr. Francis on 11-04-2022 RBC (Bld) [#/Vol] 4.19 10*6/uL 4.2-5.4 [facility] Blood hemoglobin measurement (mass/volume)Ordered By: Dr. Francis on 11-04-2022 Hemoglobin (Bld) [Mass/Vol] 12.6 g/dL 12.0-15.0 [facility] Blood lymphocytes/100 leukoc ytesOrdered By: Dr. Francis on 11-04-2022 Lymphocytes/100 WBC (Bld) 18.9 % 19-41 [facility] Blood monocytes/100 leukocyt esOrdered By: Dr. Francis on 11-04-2022 Monocytes/100 WBC (Bld) 7.5 % 0-10 [facility] Blood platelet mean volumeOr dered By: Dr. Francis on 11-04-2022 Platelet mean volume (Bld) [Entitic vol] 12.5 fL 6.2-12.0 [facility] Determination of erythrocyte mean corpuscular volume (MCV)Ordered By: Dr. Francis on 11-04-2022 MCV (RBC) [Entitic vol] 92.6 fL 81-99 [facility] Glucose Glucometer (BldC) [M ass/Vol]Ordered By: Dr. Francis on 11-04-2022 Glucose [Mass/Vol] 130 mg/dL 74-106 [facility] Comment on above: MANAGEMENT OF PATIEN T CARE PER NURSING PROTOCOL Hematocrit Auto (Bld) [Volum e fraction]Ordered By: Dr. Francis on 11-04-2022 Hematocrit (Bld) [Volume fraction] 38.8 % 37-47 [facility] - Chemistry and C hemistry - challengeOrdered By: Dr. Francis on 11-04-2022 CO2 [Moles/Vol] 28.0 mmol/L 21.0-32.0 [facility] Urea nitrogen/Creatinine [Mass ratio] 22.3 mg/mg 10-20 [facility] - Hematology and Cell countsOrdered By: Dr. Francis on 11-04-2022 Erythrocyte distribution width (RBC) [Entitic vol] 42.7 fL 35.1-43.9 [facility] Erythrocyte distribution width (RBC) [Ratio] 12.6 % 11.6-14.6 [facility] Immature granulocytes/100 WBC (Bld) 0.200 % 0.0-0.9 [facility] Comment on above: IG% - Immature Granu locytes (promyelocytes, myelocytes and metamyelocytes) > 1% indicates that a LEFT SHIFT is Present. MCH (RBC) [Entitic mass] 30.1 pg 27.0-32.0 [facility] Nucleated RBC/100 WBC (Bld) [Ratio] 0 % 0-5 [facility] MCHC Auto (RBC) [Mass/Vol]Or dered By: Dr. Francis on 11-04-2022 MCHC (RBC) [Mass/Vol] 32.5 g/dL 32-36 [facility] No Panel InformationOrdered By: Dr. Francis on 11-04-2022 Troponin I High Sensitivity 11 pg/mL 3.0-54.0 [facility] Comment on above: Please Note: New Mariajose t Units and Gender Specific Reference Ranges. For more information see Policy Stat Procedure [place] High Sensitivity Troponin (TNIH) and attachments. D-Dimer Quantitative (PE/DVT) 0.39 FEU/ug/m 0.27-0.49 [facility] Comment on above: NORMAL D-Dimer level (<0.50) indicates no DVT or PE. Estimated Creatinine Clearance Calc 57.92 ml/min [facility] Estimated GFR (MDRD) Amer 83 mL/min >60 [facility] Comment on above: GFR Calc Estimated GFR (MDRD) Non-Af Amer 69 mL/min >60 [facility] Comment on above: Non- GFR Calc Platelets bldOrdered By: Dr. Francis on 11-04-2022 Platelets (Bld) [#/Vol] 212 10*3/uL 150-450 [facility] Serum or plasma calcium zora urement (mass/volume)Ordered By: Dr. Francis on 11-04-2022 Calcium [Mass/Vol] 9.5 mg/dL 8.5-10.1 [facility] Serum or plasma creatinine m easurement (mass/volume)Ordered By: Dr. rFancis on 11-04-2022 Creatinine [Mass/Vol] 0.85 mg/dL 0.55-1.02 [facility] Comment on above: The validity of the calculated GFR & GFRAA in patients over 70 years has not been determined. Clinical correlation is essential. Serum or plasma urea nitroge n measurement (mass/volume)Ordered By: Dr. Francis on 11-04-2022 Urea nitrogen [Mass/Vol] 19 mg/dL 7-18 [facility] Thin prep Papanicolaou smear with manual screeningOrdered By: Dr. Francis on 11-04-2022 Thin prep Papanicolaou smear with manual screening 5 5-15 [facility] Absolute lymphocyte countOrd ered By: ED PROVIDER on 10-11-2022 Lymphocytes Auto (Unsp spec) [#/Vol] 0.98 10*3/uL 0.83-4.51 [facility] Basophil percentageOrdered B y: ED PROVIDER on 10-11-2022 Basophils/100 WBC (Bld) 0.3 % 0-1 [facility] Chloride [Moles/Vol] 104 mmol/L 98-107 [facility] Eosinophils/100 WBC (Bld) 1.0 % 0-5 [facility] Glucose [Mass/Vol] 202 mg/dL 74-106 [facility] Comment on above: Glucose result great er than or equal to 200 mg/dLsuggests DIABETES MELLITUS per A.D.A. criteria. Neutrophils (Bld) [#/Vol] 5.7 10*3/uL 2.0-7.7 [facility] Neutrophils/100 WBC (Bld) 78.2 % 47-70 [facility] Potassium [Moles/Vol] 4.0 mmol/L 3.5-5.1 [facility] Sodium [Moles/Vol] 137 mmol/L 136-145 [facility] WBC (Bld) [#/Vol] 7.2 10*3/uL 4.4-11.0 [facility] Blood erythrocytes count (nu mber/volume)Ordered By: ED PROVIDER on 10-11-2022 RBC (Bld) [#/Vol] 4.17 10*6/uL 4.2-5.4 [facility] Blood hemoglobin measurement (mass/volume)Ordered By: ED PROVIDER on 10-11-2022 Hemoglobin (Bld) [Mass/Vol] 12.8 g/dL 12.0-15.0 [facility] Blood lymphocytes/100 leukoc ytesOrdered By: ED PROVIDER on 10-11-2022 Lymphocytes/100 WBC (Bld) 13.6 % 19-41 [facility] Blood monocytes/100 leukocyt esOrdered By: ED PROVIDER on 10-11-2022 Monocytes/100 WBC (Bld) 6.8 % 0-10 [facility] Blood platelet mean volumeOr dered By: ED PROVIDER on 10-11-2022 Platelet mean volume (Bld) [Entitic vol] 12.1 fL 6.2-12.0 [facility] Determination of erythrocyte mean corpuscular volume (MCV)Ordered By: ED PROVIDER on 10-11-2022 MCV (RBC) [Entitic vol] 92.8 fL 81-99 [facility] Hematocrit Auto (Bld) [Volum e fraction]Ordered By: ED PROVIDER on 10-11-2022 Hematocrit (Bld) [Volume fraction] 38.7 % 37-47 [facility] - Chemistry and C hemistry - challengeOrdered By: ED PROVIDER on 10-11-2022 CO2 [Moles/Vol] 29.0 mmol/L 21.0-32.0 [facility] Urea nitrogen/Creatinine [Mass ratio] 20.6 mg/mg 10-20 [facility] - Hematology and Cell countsOrdered By: ED PROVIDER on 10-11-2022 Erythrocyte distribution width (RBC) [Entitic vol] 43.7 fL 35.1-43.9 [facility] Erythrocyte distribution width (RBC) [Ratio] 12.9 % 11.6-14.6 [facility] Immature granulocytes/100 WBC (Bld) 0.100 % 0.0-0.9 [facility] Comment on above: IG% - Immature Granu locytes (promyelocytes, myelocytes and metamyelocytes) > 1% indicates that a LEFT SHIFT is Present. MCH (RBC) [Entitic mass] 30.7 pg 27.0-32.0 [facility] Nucleated RBC/100 WBC (Bld) [Ratio] 0 % 0-5 [facility] MCHC Auto (RBC) [Mass/Vol]Or dered By: ED PROVIDER on 10-11-2022 MCHC (RBC) [Mass/Vol] 33.1 g/dL 32-36 [facility] No Panel InformationOrdered By: ED PROVIDER on 10-11-2022 Troponin I High Sensitivity 10 pg/mL 3.0-54.0 [facility] Comment on above: Please Note: New Mariajose t Units and Gender Specific Reference Ranges. For more information see Policy Stat Procedure [place] High Sensitivity Troponin (TNIH) and attachments. Estimated Creatinine Clearance Calc 49.24 ml/min [facility] Estimated GFR (MDRD) Amer 93 mL/min >60 [facility] Comment on above: GFR Calc Estimated GFR (MDRD) Non-Af Amer 76 mL/min >60 [facility] Comment on above: Non- GFR Calc Platelets bldOrdered By: ED PROVIDER on 10-11-2022 Platelets (Bld) [#/Vol] 207 10*3/uL 150-450 [facility] Serum or plasma calcium zora urement (mass/volume)Ordered By: ED PROVIDER on 10-11-2022 Calcium [Mass/Vol] 9.1 mg/dL 8.5-10.1 [facility] Serum or plasma creatinine m easurement (mass/volume)Ordered By: ED PROVIDER on 10-11-2022 Creatinine [Mass/Vol] 0.78 mg/dL 0.55-1.02 [facility] Comment on above: The validity of the calculated GFR & GFRAA in patients over 70 years has not been determined. Clinical correlation is essential. Serum or plasma urea nitroge n measurement (mass/volume)Ordered By: ED PROVIDER on 10-11-2022 Urea nitrogen [Mass/Vol] 16 mg/dL 7-18 [facility] Thin prep Papanicolaou smear with manual screeningOrdered By: ED PROVIDER on 10-11-2022 Thin prep Papanicolaou smear with manual screening 4 5-15 [facility] Absolute lymphocyte countOrd ered By: Dr. Juan on 03-17-2023 Lymphocytes Auto (Unsp spec) [#/Vol] 1.06 10*3/uL 0.83-4.51 [facility] Basophil percentageOrdered B y: Dr. Juan on 10-01-2022 Basophils/100 WBC (Bld) 0.4 % 0-1 [facility] Chloride [Moles/Vol] 106 mmol/L 98-107 [facility] Eosinophils/100 WBC (Bld) 1.4 % 0-5 [facility] Glucose [Mass/Vol] 177 mg/dL 74-106 [facility] Comment on above: Fasting Glucose resu lt greater than or equal to 126 mg/dL suggests DIABETES MELLITUS per A.D.A. criteria. Neutrophils (Bld) [#/Vol] 4.1 10*3/uL 2.0-7.7 [facility] Neutrophils/100 WBC (Bld) 71.6 % 47-70 [facility] Potassium [Moles/Vol] 4.0 mmol/L 3.5-5.1 [facility] Sodium [Moles/Vol] 140 mmol/L 136-145 [facility] WBC (Bld) [#/Vol] 5.7 10*3/uL 4.4-11.0 [facility] Blood erythrocytes count (nu mber/volume)Ordered By: Dr. Juan on 10-01-2022 RBC (Bld) [#/Vol] 4.28 10*6/uL 4.2-5.4 [facility] Blood hemoglobin measurement (mass/volume)Ordered By: Dr. Juan on 10-01-2022 Hemoglobin (Bld) [Mass/Vol] 12.9 g/dL 12.0-15.0 [facility] Blood lymphocytes/100 leukoc ytesOrdered By: Dr. Juan on 10-01-2022 Lymphocytes/100 WBC (Bld) 18.8 % 19-41 [facility] Blood monocytes/100 leukocyt esOrdered By: Dr. Juan on 10-01-2022 Monocytes/100 WBC (Bld) 7.8 % 0-10 [facility] Blood platelet mean volumeOr dered By: Dr. Juan on 10-01-2022 Platelet mean volume (Bld) [Entitic vol] 12.0 fL 6.2-12.0 [facility] Determination of erythrocyte mean corpuscular volume (MCV)Ordered By: Dr. Juan on 10-01-2022 MCV (RBC) [Entitic vol] 95.1 fL 81-99 [facility] Hematocrit Auto (Bld) [Volum e fraction]Ordered By: Dr. Juan on 10-01-2022 Hematocrit (Bld) [Volume fraction] 40.7 % 37-47 [facility] - Chemistry and C hemistry - challengeOrdered By: Dr. Juan on 10-01-2022 CO2 [Moles/Vol] 28.0 mmol/L 21.0-32.0 [facility] Urea nitrogen/Creatinine [Mass ratio] 25.3 mg/mg 10-20 [facility] - Hematology and Cell countsOrdered By: Dr. Juan on 10-01-2022 Erythrocyte distribution width (RBC) [Entitic vol] 46.5 fL 35.1-43.9 [facility] Erythrocyte distribution width (RBC) [Ratio] 13.3 % 11.6-14.6 [facility] Immature granulocytes/100 WBC (Bld) 0.000 % 0.0-0.9 [facility] Comment on above: IG% - Immature Granu locytes (promyelocytes, myelocytes and metamyelocytes) > 1% indicates that a LEFT SHIFT is Present. MCH (RBC) [Entitic mass] 30.1 pg 27.0-32.0 [facility] Nucleated RBC/100 WBC (Bld) [Ratio] 0 % 0-5 [facility] MCHC Auto (RBC) [Mass/Vol]Or dered By: Dr. Juan on 10-01-2022 MCHC (RBC) [Mass/Vol] 31.7 g/dL 32-36 [facility] No Panel InformationOrdered By: Dr. Juan on 10-01-2022 Estimated Creatinine Clearance Calc 49.24 ml/min [facility] Estimated GFR (MDRD) Amer 91 mL/min >60 [facility] Comment on above: GFR Calc Estimated GFR (MDRD) Non-Af Amer 75 mL/min >60 [facility] Comment on above: Non- GFR Calc Troponin I High Sensitivity 9 pg/mL 3.0-54.0 [facility] Comment on above: Please Note: New Mariajose t Units and Gender Specific Reference Ranges. For more information see Policy Stat Procedure [place] High Sensitivity Troponin (TNIH) and attachments. Platelets bldOrdered By: Dr. Juan on 10-01-2022 Platelets (Bld) [#/Vol] 201 10*3/uL 150-450 [facility] Serum or plasma calcium zora urement (mass/volume)Ordered By: Dr. Juan on 10-01-2022 Calcium [Mass/Vol] 9.4 mg/dL 8.5-10.1 [facility] Serum or plasma creatinine m easurement (mass/volume)Ordered By: Dr. Juan on 10-01-2022 Creatinine [Mass/Vol] 0.79 mg/dL 0.55-1.02 [facility] Comment on above: The validity of the calculated GFR & GFRAA in patients over 70 years has not been determined. Clinical correlation is essential. Serum or plasma urea nitroge n measurement (mass/volume)Ordered By: Dr. Juan on 10-01-2022 Urea nitrogen [Mass/Vol] 20 mg/dL 7-18 [facility] Thin prep Papanicolaou smear with manual screeningOrdered By: Dr. Juan on 10-01-2022 Thin prep Papanicolaou smear with manual screening 6 5-15 [facility] Culture, urineOrdered By: Dr Altaf Kessler on 08-05-2022 Bacteria identified Cx Nom (U) Enterococcus avium [facility] Bacteria identified Cx Nom (U) Enterococcus faecalis [facility] Bacteria identified Cx Nom (U) Staphylococcus lentus [facility] Absolute lymphocyte countOrd ered By: Dr. Herring on 08-02-2022 Lymphocytes Auto (Unsp spec) [#/Vol] 0.56 10*3/uL 0.83-4.51 [facility] Basophil percentageOrdered B y: Dr. Herring on 08-02-2022 Basophil percentage 2.4 mg/dL 2.5-4.9 [facility] Basophils/100 WBC (Bld) 0.2 % 0-1 [facility] Chloride [Moles/Vol] 101 mmol/L 98-107 [facility] Eosinophils/100 WBC (Bld) 0.4 % 0-5 [facility] Glucose [Mass/Vol] 217 mg/dL 74-106 [facility] Comment on above: Glucose result great er than or equal to 200 mg/dLsuggests DIABETES MELLITUS per A.D.A. criteria. Neutrophils (Bld) [#/Vol] 4.0 10*3/uL 2.0-7.7 [facility] Neutrophils/100 WBC (Bld) 79.8 % 47-70 [facility] Potassium [Moles/Vol] 3.7 mmol/L 3.5-5.1 [facility] Sodium [Moles/Vol] 137 mmol/L 136-145 [facility] WBC (Bld) [#/Vol] 5.1 10*3/uL 4.4-11.0 [facility] Blood erythrocytes count (nu mber/volume)Ordered By: Dr. Herring on 08-02-2022 RBC (Bld) [#/Vol] 3.95 10*6/uL 4.2-5.4 [facility] Blood hemoglobin measurement (mass/volume)Ordered By: Dr. Herring on 08-02-2022 Hemoglobin (Bld) [Mass/Vol] 11.6 g/dL 12.0-15.0 [facility] Blood lymphocytes/100 leukoc ytesOrdered By: Dr. Herring on 08-02-2022 Lymphocytes/100 WBC (Bld) 11.1 % 19-41 [facility] Blood monocytes/100 leukocyt esOrdered By: Dr. Herring on 08-02-2022 Monocytes/100 WBC (Bld) 8.1 % 0-10 [facility] Blood platelet mean volumeOr dered By: Dr. Herring on 08-02-2022 Platelet mean volume (Bld) [Entitic vol] 12.6 fL 6.2-12.0 [facility] Determination of erythrocyte mean corpuscular volume (MCV)Ordered By: Dr. Herring on 08-02-2022 MCV (RBC) [Entitic vol] 92.2 fL 81-99 [facility] Glucose Glucometer (BldC) [M ass/Vol]Ordered By: Dr. Escalera on 08-02-2022 Glucose [Mass/Vol] 286 mg/dL 74-106 [facility] Comment on above: MANAGEMENT OF PATIEN T CARE PER NURSING PROTOCOL Hematocrit Auto (Bld) [Volum e fraction]Ordered By: Dr. Herring on 08-02-2022 Hematocrit (Bld) [Volume fraction] 36.4 % 37-47 [facility] - Chemistry and C hemistry - challengeOrdered By: Dr. Herring on 08-02-2022 CO2 [Moles/Vol] 26.0 mmol/L 21.0-32.0 [facility] Magnesium [Mass/Vol] 1.7 mg/dL 1.6-2.6 [facility] Urea nitrogen/Creatinine [Mass ratio] 13.5 mg/mg 10-20 [facility] - Hematology and Cell countsOrdered By: Dr. Herring on 08-02-2022 Erythrocyte distribution width (RBC) [Entitic vol] 43.3 fL 35.1-43.9 [facility] Erythrocyte distribution width (RBC) [Ratio] 12.9 % 11.6-14.6 [facility] Immature granulocytes/100 WBC (Bld) 0.400 % 0.0-0.9 [facility] Comment on above: IG% - Immature Granu locytes (promyelocytes, myelocytes and metamyelocytes) > 1% indicates that a LEFT SHIFT is Present. MCH (RBC) [Entitic mass] 29.4 pg 27.0-32.0 [facility] Nucleated RBC/100 WBC (Bld) [Ratio] 0.6 % 0-5 [facility] MCHC Auto (RBC) [Mass/Vol]Or dered By: Dr. Herring on 08-02-2022 MCHC (RBC) [Mass/Vol] 31.9 g/dL 32-36 [facility] No Panel InformationOrdered By: Dr. Herring on 08-02-2022 Estimated Creatinine Clearance Calc 49.24 ml/min [facility] Estimated GFR (MDRD) Amer 111 mL/min >60 [facility] Comment on above: GFR Calc Estimated GFR (MDRD) Non-Af Amer 92 mL/min >60 [facility] Comment on above: Non- GFR Calc Platelets bldOrdered By: Dr. Herring on 08-02-2022 Platelets (Bld) [#/Vol] 158 10*3/uL 150-450 [facility] Serum or plasma calcium zora urement (mass/volume)Ordered By: Dr. Herring on 08-02-2022 Calcium [Mass/Vol] 8.0 mg/dL 8.5-10.1 [facility] Serum or plasma creatinine m easurement (mass/volume)Ordered By: Dr. Herring on 08-02-2022 Creatinine [Mass/Vol] 0.66 mg/dL 0.55-1.02 [facility] Comment on above: The validity of the calculated GFR & GFRAA in patients over 70 years has not been determined. Clinical correlation is essential. Serum or plasma urea nitroge n measurement (mass/volume)Ordered By: Dr. Herring on 08-02-2022 Urea nitrogen [Mass/Vol] 9 mg/dL 7-18 [facility] Thin prep Papanicolaou smear with manual screeningOrdered By: Dr. Herring on 08-02-2022 Thin prep Papanicolaou smear with manual screening 10 5-15 [facility] Absolute lymphocyte counton 07-31-2022 Lymphocytes Auto (Unsp spec) [#/Vol] 0.65 10*3/uL 0.83-4.51 [facility] Work Phone: Amorphous sediment detection in urine sediment by light microscopyOrdered By: ED PROVIDER on 07-31-2022 Amorphous sediment LM Ql (Urine sed) 1+ URATE [facility] Basophil percentageOrdered B y: ED PROVIDER on 07-31-2022 Basophil percentage 5-10 SEEN /hpf 0-5 [facility] Bilirubin [Mass/Vol] 1.30 mg/dL 0.20-1.00 [facility] Comment on above: For patients on eltr ombopag therapy, use of Dimension [place] TBIL is not recommended. Protein [Mass/Vol] 7.0 g/dL 6.4-8.2 [facility] Basophil percentageOrdered B y: Dr. Kessler on 07-31-2022 Lactate [Moles/Vol] 1.5 mmol/L 0.4-2.0 [facility] Basophil percentageon 2022 Basophils/100 WBC (Bld) 0.1 % 0-1 [facility] Work Phone: [phone] Chloride [Moles/Vol] 100 mmol/L 98-107 [facility]: Eosinophils/100 WBC (Bld) 0.0 % 0-5 [facility] Work Phone: Glucose [Mass/Vol] 113 mg/dL 74-106 [facility] Work Phone: Comment on above: Fasting Glucose resu lt from 100 to 125 mg/dL suggests IMPAIRED HOMEOSTASIS per A.D.A. criteria. Neutrophils (Bld) [#/Vol] 6.5 10*3/uL 2.0-7.7 [facility] Work Phone: Neutrophils/100 WBC (Bld) 86.7 % 47-70 [facility] Work Phone: Potassium [Moles/Vol] 3.9 mmol/L 3.5-5.1 [facility] Work Phone: Sodium [Moles/Vol] 135 mmol/L 136-145 [facility] Work Phone: WBC (Bld) [#/Vol] 7.5 10*3/uL 4.4-11.0 [facility] Work Phone: Bilirubin Test strip Ql (U)O rdered By: ED PROVIDER on 07-31-2022 Bilirubin Ql (U) 1 mg/dL Negative [facility] Comment on above: COLOR OF URINE MAY A FFECT DIPSTICK RESULTS. Blood erythrocytes count (nu mber/volume)on 07-31-2022 RBC (Bld) [#/Vol] 4.69 10*6/uL 4.2-5.4 [facility] Work Phone: Blood hemoglobin measurement (mass/volume)on 07-31-2022 Hemoglobin (Bld) [Mass/Vol] 13.8 g/dL 12.0-15.0 [facility] Work Phone: Blood lymphocytes/100 leukoc yteson 07-31-2022 Lymphocytes/100 WBC (Bld) 8.7 % 19-41 [facility] Work Phone: Blood monocytes/100 leukocyt eson 07-31-2022 Monocytes/100 WBC (Bld) 4.4 % 0-10 [facility] Work Phone: Blood platelet mean volumeon 07-31-2022 Platelet mean volume (Bld) [Entitic vol] 12.3 fL 6.2-12.0 [facility] Work Phone: Determination of erythrocyte mean corpuscular volume (MCV)on 07-31-2022 MCV (RBC) [Entitic vol] 91.5 fL 81-99 [facility] Work Phone: Glucose Glucometer (BldC) [M ass/Vol]on 07-31-2022 Glucose [Mass/Vol] 121 mg/dL 74-106 [facility] Work Phone: Comment on above: MANAGEMENT OF PATIEN T CARE PER NURSING PROTOCOL Hematocrit Auto (Bld) [Volum e fraction]on 07-31-2022 Hematocrit (Bld) [Volume fraction] 42.9 % 37-47 [facility] Work Phone: Influenza virus A and B and SARS-CoV-2 (COVID-19) Ag panel - Upper respiratory specimOrdered By: Dr. Kessler on 07-31-2022 SARS-CoV-2 & FLU Antigen (Rapid) SARS-CoV-2 (COVID 19) [facility] Ketones Test strip Ql (U)Ord ered By: ED PROVIDER on 07-31-2022 Ketones Ql (U) 15 mg/dl Negative [facility] Laboratory - Chemistry and C hemistry - challengeOrdered By: ED PROVIDER on 07-31-2022 ALP [Catalytic activity/Vol] 71 U/L 45-117 [facility] ALT [Catalytic activity/Vol] 26 U/L 13-56 [facility] Globulin (S) [Mass/Vol] 4.2 g/dL 2.2-4.2 [facility] Laboratory - Chemistry and C hemistry - challengeon 07-31-2022 CO2 [Moles/Vol] 29.0 mmol/L 21.0-32.0 [facility] Work Phone: Urea nitrogen/Creatinine [Mass ratio] 17.2 mg/mg 10-20 [facility] Work Phone: Laboratory - Hematology and Cell countson 07-31-2022 Erythrocyte distribution width (RBC) [Entitic vol] 41.3 fL 35.1-43.9 [facility] Work Phone: Erythrocyte distribution width (RBC) [Ratio] 12.7 % 11.6-14.6 [facility] Work Phone: Immature granulocytes/100 WBC (Bld) 0.100 % 0.0-0.9 [facility] Work Phone: Comment on above: IG% - Immature Granu locytes (promyelocytes, myelocytes and metamyelocytes) > 1% indicates that a LEFT SHIFT is Present. MCH (RBC) [Entitic mass] 29.4 pg 27.0-32.0 [facility] Work Phone: Nucleated RBC/100 WBC (Bld) [Ratio] 0 % 0-5 [facility] Work Phone: MCHC Auto (RBC) [Mass/Vol]on 07-31-2022 MCHC (RBC) [Mass/Vol] 32.2 g/dL 32-36 [facility] Work Phone: Mucus LM Ql (Urine sed)Order ed By: ED PROVIDER on 07-31-2022 Mucus Ql (Urine sed) 0 SEEN /hpf [facility] Nitrite Test strip Ql (U)Ord ered By: ED PROVIDER on 07-31-2022 Nitrite Ql (U) Negative Negative [facility] No Panel Informationon 07-31 Estimated Creatinine Clearance Calc 49.73 ml/min [facility] Work Phone: Estimated GFR (MDRD) Amer 70 mL/min >60 [facility] Work Phone: Comment on above: GFR Calc Estimated GFR (MDRD) Non-Af Amer 58 mL/min >60 [facility] Work Phone: Comment on above: Non- GFR Calc Platelets bldon 07-31-2022 Platelets (Bld) [#/Vol] 187 10*3/uL 150-450 [facility] Work Phone: Protein Test strip Ql (U)Ord ered By: ED PROVIDER on 07-31-2022 Protein Ql (U) 15 mg/dl Negative [facility] Serum or plasma albumin zora urement (mass/volume)Ordered By: ED PROVIDER on 07-31-2022 Albumin [Mass/Vol] 2.8 g/dL 3.2-5.0 [facility] Serum or plasma albumin/glob ulin mass ratioOrdered By: ED PROVIDER on 07-31-2022 Albumin/Globulin [Mass ratio] 0.7 {ratio} 0.9-2.4 [facility] Serum or plasma calcium zora urement (mass/volume)on 07-31-2022 Calcium [Mass/Vol] 8.5 mg/dL 8.5-10.1 [facility] Work Phone: Serum or plasma creatinine m easurement (mass/volume)on 07-31-2022 Creatinine [Mass/Vol] 0.99 mg/dL 0.55-1.02 [facility] Work Phone: Comment on above: The validity of the calculated GFR & GFRAA in patients over 70 years has not been determined. Clinical correlation is essential. Serum or plasma urea nitroge n measurement (mass/volume)on 07-31-2022 Urea nitrogen [Mass/Vol] 17 mg/dL 7-18 [facility] Work Phone: Squamous epithelial cells de tection in urine sediment by light microscopyOrdered By: ED PROVIDER on 07-31-2022 Epithelial cells.squamous LM Ql (Urine sed) 0-5 SEEN /hpf 5-10 [facility] Thin prep Papanicolaou smear with manual screeningOrdered By: ED PROVIDER on 07-31-2022 Thin prep Papanicolaou smear with manual screening 24 U/L 15-37 [facility] Thin prep Papanicolaou smear with manual screeningon 07-31-2022 Thin prep Papanicolaou smear with manual screening 6 5-15 [facility] Work Phone: Urine blood detectionOrdered By: ED PROVIDER on 07-31-2022 RBC Ql (U) Negative Negative [facility] RBC Ql (U) 0 SEEN /hpf 0-5 [facility] Urine clarityOrdered By: ED PROVIDER on 07-31-2022 Clarity (U) Sl. Cloudy Clear [facility] Urine color determinationOrd ered By: ED PROVIDER on 07-31-2022 Color (U) Yellow Yellow [facility] Urine glucose detectionOrder ed By: ED PROVIDER on 07-31-2022 Glucose Ql (U) Normal mg/dl Normal [facility] Urine leukocyte esterase det ection by dipstickOrdered By: ED PROVIDER on 07-31-2022 Leukocyte esterase Test strip Ql (U) 100 /ul Negative [facility] Urine pHOrdered By: ED PROVI KAYE on 07-31-2022 pH (U) 6.0 [pH] 5.0 - 8.0 [facility] Urine sediment bacteria coun t by microscopy (number/high power field)Ordered By: ED PROVIDER on 07-31-2022 Bacteria LM.HPF (Urine sed) [#/Area] 0 /[HPF] None Seen [facility] Urine specific gravity measu rementOrdered By: ED PROVIDER on 07-31-2022 Specific gravity (U) [Rel density] 1.015 1.002-1.030 [facility] Urobilinogen Auto test strip Ql (U)Ordered By: ED PROVIDER on 07-31-2022 Urobilinogen Ql (U) 4 mg/dl Normal [facility] Absolute lymphocyte countOrd ered By: Dr. Garcia on 07-24-2022 Lymphocytes Auto (Unsp spec) [#/Vol] 0.75 10*3/uL 0.83-4.51 [facility] Basophil percentageOrdered B y: Dr. Garcia on 07-24-2022 Basophils/100 WBC (Bld) 0.1 % 0-1 [facility] Bilirubin [Mass/Vol] 0.60 mg/dL 0.20-1.00 [facility] Comment on above: For patients on eltr ombopag therapy, use of Dimension [place] TBIL is not recommended. Chloride [Moles/Vol] 103 mmol/L 98-107 [facility] Eosinophils/100 WBC (Bld) 0.0 % 0-5 [facility] Glucose [Mass/Vol] 164 mg/dL 74-106 [facility] Comment on above: Fasting Glucose resu lt greater than or equal to 126 mg/dL suggests DIABETES MELLITUS per A.D.A. criteria. Neutrophils (Bld) [#/Vol] 7.0 10*3/uL 2.0-7.7 [facility] Neutrophils/100 WBC (Bld) 83.8 % 47-70 [facility] Potassium [Moles/Vol] 3.6 mmol/L 3.5-5.1 [facility] Protein [Mass/Vol] 5.9 g/dL 6.4-8.2 [facility] Sodium [Moles/Vol] 137 mmol/L 136-145 [facility] WBC (Bld) [#/Vol] 8.3 10*3/uL 4.4-11.0 [facility] Blood erythrocytes count (nu mber/volume)Ordered By: Dr. Garcia on 07-24-2022 RBC (Bld) [#/Vol] 4.26 10*6/uL 4.2-5.4 [facility] Blood hemoglobin measurement (mass/volume)Ordered By: Dr. Garcia on 07-24-2022 Hemoglobin (Bld) [Mass/Vol] 13.1 g/dL 12.0-15.0 [facility] Blood lymphocytes/100 leukoc ytesOrdered By: Dr. Garcia on 07-24-2022 Lymphocytes/100 WBC (Bld) 9.0 % 19-41 [facility] Blood monocytes/100 leukocyt esOrdered By: Dr. Garcia on 07-24-2022 Monocytes/100 WBC (Bld) 6.7 % 0-10 [facility] Blood platelet mean volumeOr dered By: Dr. Garcia on 07-24-2022 Platelet mean volume (Bld) [Entitic vol] 11.8 fL 6.2-12.0 [facility] Determination of erythrocyte mean corpuscular volume (MCV)Ordered By: Dr. Garcia on 07-24-2022 MCV (RBC) [Entitic vol] 94.6 fL 81-99 [facility] Glucose Glucometer (BldC) [M ass/Vol]Ordered By: Dr. Garcia on 07-24-2022 Glucose [Mass/Vol] 64 mg/dL 74-106 [facility] Comment on above: MANAGEMENT OF PATIEN T CARE PER NURSING PROTOCOL Glucose Glucometer (BldC) [M ass/Vol]on 07-24-2022 Glucose [Mass/Vol] 135 mg/dL 74-106 [facility] Work Phone: Comment on above: MANAGEMENT OF PATIEN T CARE PER NURSING PROTOCOL Hematocrit Auto (Bld) [Volum e fraction]Ordered By: Dr. Garcia on 07-24-2022 Hematocrit (Bld) [Volume fraction] 40.3 % 37-47 [facility] Laboratory - Chemistry and C hemistry - challengeOrdered By: Dr. Garcia on 07-24-2022 ALP [Catalytic activity/Vol] 63 U/L 45-117 [facility] ALT [Catalytic activity/Vol] 35 U/L 13-56 [facility] CO2 [Moles/Vol] 26.0 mmol/L 21.0-32.0 [facility] Globulin (S) [Mass/Vol] 3.8 g/dL 2.2-4.2 [facility] Urea nitrogen/Creatinine [Mass ratio] 23.8 mg/mg 10-20 [facility] - Hematology and Cell countsOrdered By: Dr. Garcia on 07-24-2022 Erythrocyte distribution width (RBC) [Entitic vol] 44.2 fL 35.1-43.9 [facility] Erythrocyte distribution width (RBC) [Ratio] 12.8 % 11.6-14.6 [facility] Immature granulocytes/100 WBC (Bld) 0.400 % 0.0-0.9 [facility] Comment on above: IG% - Immature Granu locytes (promyelocytes, myelocytes and metamyelocytes) > 1% indicates that a LEFT SHIFT is Present. MCH (RBC) [Entitic mass] 30.8 pg 27.0-32.0 [facility] Nucleated RBC/100 WBC (Bld) [Ratio] 0 % 0-5 [facility] MCHC Auto (RBC) [Mass/Vol]Or dered By: Dr. Garcia on 07-24-2022 MCHC (RBC) [Mass/Vol] 32.5 g/dL 32-36 [facility] No Panel InformationOrdered By: Dr. Garcia on 07-24-2022 Estimated Creatinine Clearance Calc 59.54 ml/min [facility] Estimated GFR (MDRD) Amer 84 mL/min >60 [facility] Comment on above: GFR Calc Estimated GFR (MDRD) Non-Af Amer 70 mL/min >60 [facility] Comment on above: Non- GFR Calc Platelets bldOrdered By: Dr. Garcia on 07-24-2022 Platelets (Bld) [#/Vol] 243 10*3/uL 150-450 [facility] Serum or plasma albumin zora urement (mass/volume)Ordered By: Dr. Garcia on 07-24-2022 Albumin [Mass/Vol] 2.1 g/dL 3.2-5.0 [facility] Serum or plasma albumin/glob ulin mass ratioOrdered By: Dr. Garcia on 07-24-2022 Albumin/Globulin [Mass ratio] 0.6 {ratio} 0.9-2.4 [facility] Serum or plasma calcium zora urement (mass/volume)Ordered By: Dr. Garcia on 07-24-2022 Calcium [Mass/Vol] 8.8 mg/dL 8.5-10.1 [facility] Serum or plasma creatinine m easurement (mass/volume)Ordered By: Dr. Garcia on 07-24-2022 Creatinine [Mass/Vol] 0.84 mg/dL 0.55-1.02 [facility] Comment on above: The validity of the calculated GFR & GFRAA in patients over 70 years has not been determined. Clinical correlation is essential. Serum or plasma urea nitroge n measurement (mass/volume)Ordered By: Dr. Garcia on 07-24-2022 Urea nitrogen [Mass/Vol] 20 mg/dL 7-18 [facility] Thin prep Papanicolaou smear with manual screeningOrdered By: Dr. Garcia on 07-24-2022 Thin prep Papanicolaou smear with manual screening 26 U/L 15-37 [facility] Thin prep Papanicolaou smear with manual screening 8 5-15 [facility] Blood manual differential co mment interpretation (narrative result)Ordered By: Dr. Garcia on 07-23-2022 Manual differential comment Ferny (Bld) [Interp] SCANNED [facility] Comment on above: LYMPHOPENIA NOTED Laboratory - Microbiology an d Antimicrobial susceptibilityOrdered By: Dr. Leong on 07-23-2022 Bacteria identified Cx Nom (Bld) No growth in 5 days. [facility] Bacteria identified Cx Nom (Bld) No growth in 5 days. [facility] Laboratory - Microbiology an d Antimicrobial susceptibilityOrdered By: Dr. Garcia on 07-22-2022 SARS-CoV-2 (COVID-19) RNA RAYMOND+probe Ql (Unsp spec) Detected Not Detect [facility] Comment on above: Normal Reference Ran ge: Not DetectedMethod:(RT-PCR) real-time reverse transcriptase PCRLuminex 99inn.cc Instrument*The Food and Drug Administration (FDA) has issued an Emergency Use Authorization (EAU) for the 99inn.cc SARS-CoV-2 Assay for the rapid detection of [...] 07-22-2022 SARS-CoV-2 Antigen (Rapid) SARS-CoV-2 (COVID 19) [facility] Assessment of wrist artery p atency prior to arterial punctureOrdered By: Dr. Leong on 07-18-2022 Arterial patency Wrist artery --pre arterial puncture Positive [facility] Base excessOrdered By: Dr. Juanita pelaez on 07-18-2022 Base excess Calc (BldV) [Moles/Vol] 8 mmol/L -2-2 [facility] Basophil percentageOrdered B y: Dr. Leong on 07-18-2022 Basophil percentage 32.4 mmol/L 22-26 [facility] Basophils/100 WBC (Bld) 94 % 95-99 [facility] CO2 (BldA) [Partial pressure ]Ordered By: Dr. Leong on 07-18-2022 CO2 (Bld) [Partial pressure] 47.5 mm[Hg] 35-45 [facility] No Panel InformationOrdered By: Dr. Sandoval on 07-18-2022 Methicillin-Resist S.aureus DNA PCR Negative Negative [facility] Streptococcus pneumoniae Antigen (M [facility] No Panel InformationOrdered By: Dr. Leong on 07-18-2022 Blood Gas Liter Flow 4.0 /min [facility] Blood Gas Sample Site R Radial [facility] Blood Gas Specimen Type ART [facility] Blood Gas Total CO2 34 mmol/L [facility] Oxygen Delivery Device Cannula [facility] Oxygen (dA) [Partial press ure]Ordered By: Dr. Leong on 07-18-2022 Oxygen (Bld) [Partial pressure] 68 mmHG 75-100 [facility] pH measurementOrdered By: Dr Altaf Leong on 07-18-2022 pH (Unsp spec) 7.44 [pH] 7.35-7.45 [facility] Basophil percentageOrdered B y: Dr. Leong on 07-17-2022 Lactate [Moles/Vol] 1.2 mmol/L 0.4-2.0 [facility] Culture, urineOrdered By: Dr Altaf Torres on 07-15-2022 Bacteria identified Cx Nom (U) Positive [facility] Glucose Glucometer (dC) [M ass/Vol]Ordered By: Dr. Escobedo on 07-14-2022 Glucose [Mass/Vol] 185 mg/dL 74-106 [facility] Comment on above: MANAGEMENT OF PATIEN T CARE PER NURSING PROTOCOL Basophil percentageOrdered B y: Dr. Torres on 07-13-2022 Basophil percentage 5-10 SEEN /hpf 0-5 [facility] Bilirubin Test strip Ql (U)O rdered By: Dr. Torres on 07-13-2022 Bilirubin Ql (U) Negative Negative [facility] Ketones Test strip Ql (U)Ord ered By: Dr. Torres on 07-13-2022 Ketones Ql (U) 5 mg/dl Negative [facility] Microbial respiratory cultur eOrdered By: Dr. Herring on 07-13-2022 Bacteria identified Respiratory culture Nom (Unsp spec) or Staphylococcus aureus isolated. [facility] Mucus LM Ql (Urine sed)Order ed By: Dr. Torres on 07-13-2022 Mucus Ql (Urine sed) 0 SEEN /hpf [facility] Nitrite Test strip Ql (U)Ord ered By: Dr. Torres on 07-13-2022 Nitrite Ql (U) Negative Negative [facility] Protein Test strip Ql (U)Ord ered By: Dr. Torres on 07-13-2022 Protein Ql (U) 15 mg/dl Negative [facility] Squamous epithelial cells de tection in urine sediment by light microscopyOrdered By: Dr. Torres on 07-13-2022 Epithelial cells.squamous LM Ql (Urine sed) 0 SEEN /hpf 5-10 [facility] Urine blood detectionOrdered By: Dr. Torres on 07-13-2022 RBC Ql (U) Negative Negative [facility] RBC Ql (U) 0 SEEN /hpf 0-5 [facility] Urine clarityOrdered By: Dr. Torres on 07-13-2022 Clarity (U) Clear Clear [facility] Urine color determinationOrd ered By: Dr. Torres on 07-13-2022 Color (U) Yellow Yellow [facility] Urine glucose detectionOrder ed By: Dr. Torres on 07-13-2022 Glucose Ql (U) Normal mg/dl Normal [facility] Urine leukocyte esterase det ection by dipstickOrdered By: Dr. Torres on 07-13-2022 Leukocyte esterase Test strip Ql (U) 100 /ul Negative [facility] Urine pHOrdered By: Dr. Fela rabago on 07-13-2022 pH (U) 6.0 [pH] 5.0 - 8.0 [facility] Urine sediment bacteria coun t by microscopy (number/high power field)Ordered By: Dr. Torres on 07-13-2022 Bacteria LM.HPF (Urine sed) [#/Area] 1 /[HPF] None Seen [facility] Urine specific gravity measu rementOrdered By: Dr. Torres on 07-13-2022 Specific gravity (U) [Rel density] 1.020 1.002-1.030 [facility] Urobilinogen Auto test strip Ql (U)Ordered By: Dr. Torres on 07-13-2022 Urobilinogen Ql (U) Normal mg/dl Normal [facility] Gram stain for investigation of transfusion reactionOrdered By: Dr. Herring on 07-12-2022 Microscopic observation Gram stain Nom (Unsp spec) [facility] Absolute lymphocyte countOrd ered By: Dr. Herring on 07-11-2022 Lymphocytes Auto (Unsp spec) [#/Vol] 0.31 10*3/uL 0.83-4.51 [facility] Basophil percentageOrdered B y: Dr. Herring on 07-11-2022 Basophil percentage 2.7 mg/dL 2.5-4.9 [facility] Basophils/100 WBC (Bld) 0.0 % 0-1 [facility] Chloride [Moles/Vol] 103 mmol/L 98-107 [facility] Eosinophils/100 WBC (Bld) 0.0 % 0-5 [facility] Glucose [Mass/Vol] 418 mg/dL 74-106 [facility] Comment on above: Glucose result great er than or equal to 200 mg/dLsuggests DIABETES MELLITUS per A.D.A. criteria. Neutrophils (Bld) [#/Vol] 3.6 10*3/uL 2.0-7.7 [facility] Neutrophils/100 WBC (Bld) 88.0 % 47-70 [facility] Potassium [Moles/Vol] 3.9 mmol/L 3.5-5.1 [facility] Sodium [Moles/Vol] 136 mmol/L 136-145 [facility] WBC (Bld) [#/Vol] 4.1 10*3/uL 4.4-11.0 [facility] Blood erythrocytes count (nu mber/volume)Ordered By: Dr. Herring on 07-11-2022 RBC (Bld) [#/Vol] 4.11 10*6/uL 4.2-5.4 [facility] Blood hemoglobin measurement (mass/volume)Ordered By: Dr. Herring on 07-11-2022 Hemoglobin (Bld) [Mass/Vol] 12.0 g/dL 12.0-15.0 [facility] Blood lymphocytes/100 leukoc ytesOrdered By: Dr. Herring on 07-11-2022 Lymphocytes/100 WBC (Bld) 7.6 % 19-41 [facility] Blood monocytes/100 leukocyt esOrdered By: Dr. Herring on 07-11-2022 Monocytes/100 WBC (Bld) 4.2 % 0-10 [facility] Blood platelet mean volumeOr dered By: Dr. Herring on 07-11-2022 Platelet mean volume (Bld) [Entitic vol] 11.7 fL 6.2-12.0 [facility] Determination of erythrocyte mean corpuscular volume (MCV)Ordered By: Dr. Herring on 07-11-2022 MCV (RBC) [Entitic vol] 92.7 fL 81-99 [facility] Hematocrit Auto (Bld) [Volum e fraction]Ordered By: Dr. Herring on 07-11-2022 Hematocrit (Bld) [Volume fraction] 38.1 % 37-47 [facility] Laboratory - Chemistry and C hemistry - challengeOrdered By: Dr. Herring on 07-11-2022 CO2 [Moles/Vol] 26.0 mmol/L 21.0-32.0 [facility] Magnesium [Mass/Vol] 2.1 mg/dL 1.6-2.6 [facility] Urea nitrogen/Creatinine [Mass ratio] 27.0 mg/mg 10-20 [facility] Laboratory - Hematology and Cell countsOrdered By: Dr. Herring on 07-11-2022 Erythrocyte distribution width (RBC) [Entitic vol] 43.5 fL 35.1-43.9 [facility] Erythrocyte distribution width (RBC) [Ratio] 12.8 % 11.6-14.6 [facility] Immature granulocytes/100 WBC (Bld) 0.200 % 0.0-0.9 [facility] Comment on above: IG% - Immature Granu locytes (promyelocytes, myelocytes and metamyelocytes) > 1% indicates that a LEFT SHIFT is Present. MCH (RBC) [Entitic mass] 29.2 pg 27.0-32.0 [facility] Nucleated RBC/100 WBC (Bld) [Ratio] 0 [facility] [Mass/Vol]Or dered By: Dr. Herring on 07-11-2022 MCHC (RBC) [Mass/Vol] 31.5 g/dL 32-36 [facility] No Panel InformationOrdered By: Dr. Herring on 07-11-2022 Estimated Creatinine Clearance Calc 50.02 ml/min [facility] Estimated GFR (MDRD) Amer 69 mL/min >60 [facility] Comment on above: GFR Calc Estimated GFR (MDRD) Non-Af Amer 57 mL/min >60 [facility] Comment on above: Non- GFR Calc Platelets bldOrdered By: Dr. Herring on 07-11-2022 Platelets (Bld) [#/Vol] 177 10*3/uL 150-450 [facility] Review by pathologistOrdered By: Dr. Herring on 07-11-2022 Pathologist review Ferny (Unsp spec) [Interp] Reviewed [facility] Comment on above: Previous reported re sult: Trixie byrne Edited by: RGOOD on 07/13/22:1353 AMENDED REPORT 07/13/22 1353 PATH REV previously reported as: Trixie byrne Serum or plasma calcium zoar urement (mass/volume)Ordered By: Dr. Herring on 07-11-2022 Calcium [Mass/Vol] 8.4 mg/dL 8.5-10.1 [facility] Serum or plasma creatinine m easurement (mass/volume)Ordered By: Dr. Herring on 07-11-2022 Creatinine [Mass/Vol] 1.00 mg/dL 0.55-1.02 [facility] Comment on above: The validity of the calculated GFR & GFRAA in patients over 70 years has not been determined. Clinical correlation is essential. Serum or plasma urea nitroge n measurement (mass/volume)Ordered By: Dr. Herring on 07-11-2022 Urea nitrogen [Mass/Vol] 27 mg/dL 7-18 [facility] Thin prep Papanicolaou smear with manual screeningOrdered By: Dr. Herring on 07-11-2022 Thin prep Papanicolaou smear with manual screening 7 5-15 [facility] Whole blood hemoglobin A1c/t otal hemoglobin ratio (mass fraction)Ordered By: Dr. Torres on 07-11-2022 HbA1c (Bld) [Mass fraction] 7.6 % 3.8-5.6 [facility] Comment on above: Normal < 5.7 % Predi abetic 5.7 - 6.4 % Diabetic >or= 6.5 % Please note range changes. Absolute lymphocyte counton 07-10-2022 Lymphocytes Auto (Unsp spec) [#/Vol] 0.35 10*3/uL 0.83-4.51 [facility] Work Phone: Basophil percentageon 2021 Basophils/100 WBC (Bld) 0.4 % 0-1 [facility] Work Phone: Chloride [Moles/Vol] 101 mmol/L 98-107 [facility] Work Phone: Eosinophils/100 WBC (Bld) 0.7 % 0-5 [facility] Work Phone: Glucose [Mass/Vol] 253 mg/dL 74-106 [facility] Work Phone: Comment on above: Glucose result great er than or equal to 200 mg/dLsuggests DIABETES MELLITUS per A.D.A. criteria. Neutrophils (Bld) [#/Vol] 4.6 10*3/uL 2.0-7.7 [facility] Work Phone: Neutrophils/100 WBC (Bld) 83.5 % 47-70 [facility] Work Phone: Potassium [Moles/Vol] 3.8 mmol/L 3.5-5.1 [facility] Work Phone: Sodium [Moles/Vol] 136 mmol/L 136-145 [facility] Work Phone: WBC (Bld) [#/Vol] 5.5 10*3/uL 4.4-11.0 [facility] Work Phone: [phone] Blood erythrocytes count (nu mber/volume)on 07-10-2022 RBC (Bld) [#/Vol] 4.74 10*6/uL 4.2-5.4 [facility] Work Phone: Blood hemoglobin measurement (mass/volume)on 07-10-2022 Hemoglobin (Bld) [Mass/Vol] 13.8 g/dL 12.0-15.0 [facility] Work Phone: Blood lymphocytes/100 leukoc yteson 07-10-2022 Lymphocytes/100 WBC (Bld) 6.3 % 19-41 [facility] Work Phone: Blood manual differential co mment interpretation (narrative result)Ordered By: ED PROVIDER on 07-10-2022 Manual differential comment Ferny (Bld) [Interp] SCANNED [facility] Blood monocytes/100 leukocyt eson 07-10-2022 Monocytes/100 WBC (Bld) 8.7 % 0-10 [facility] Work Phone: Blood platelet mean volumeon 07-10-2022 Platelet mean volume (Bld) [Entitic vol] 11.6 fL 6.2-12.0 [facility] Work Phone: Determination of erythrocyte mean corpuscular volume (MCV)on 07-10-2022 MCV (RBC) [Entitic vol] 91.6 fL 81-99 [facility] Work Phone: Hematocrit Auto (Bld) [Volum e fraction]on 07-10-2022 Hematocrit (Bld) [Volume fraction] 43.4 % 37-47 [facility] Work Phone: Laboratory - Chemistry and C hemistry - challengeon 07-10-2022 CO2 [Moles/Vol] 27.0 mmol/L 21.0-32.0 [facility] Work Phone: Urea nitrogen/Creatinine [Mass ratio] 22.1 mg/mg 10-20 [facility] Work Phone: Laboratory - Hematology and Cell countson 07-10-2022 Erythrocyte distribution width (RBC) [Entitic vol] 42.4 fL 35.1-43.9 [facility] Work Phone: Erythrocyte distribution width (RBC) [Ratio] 12.6 % 11.6-14.6 [facility] Work Phone: Immature granulocytes/100 WBC (Bld) 0.400 % 0.0-0.9 [facility] Work Phone: Comment on above: IG% - Immature Granu locytes (promyelocytes, myelocytes and metamyelocytes) > 1% indicates that a LEFT SHIFT is Present. MCH (RBC) [Entitic mass] 29.1 pg 27.0-32.0 [facility] Work Phone: Nucleated RBC/100 WBC (Bld) [Ratio] 0 % 0-5 [facility] Work Phone: Laboratory - Microbiology an d Antimicrobial susceptibilityOrdered By: Dr. Herring on 07-10-2022 SARS-CoV-2 (COVID-19) RNA RAYMOND+probe Ql (Unsp spec) Not detected Not Detect [facility] Comment on above: Normal Reference Ran [...] 07-10-2022 MCHC (RBC) [Mass/Vol] 31.8 g/dL 32-36 [facility] Work Phone: No Panel InformationOrdered By: Dr. Harvey on 07-10-2022 D-Dimer Quantitative (PE/DVT) 0.52 FEU/ug/m 0.27-0.49 [facility] Comment on above: D-Dimer ELEVATED (>0 .49): Additional studies and clinicalassessments are indicated to conclude diagnosis of:Deep Vein Thrombosis (DVT) or Pulmonary Embolism (PE)CRITICAL VALUE VERIFIED. CALLED TO FRANCHESCA MORRIS07/10/22 2607 Hannah Beasley.RESULTS READ BACK BY SAME . Troponin I High Sensitivity 12 pg/mL 3.0-54.0 [facility] Comment on above: Please Note: New Mariajose t Units and Gender Specific Reference Ranges. For more information see Policy Stat Procedure [place] High Sensitivity Troponin (TNIH) and attachments. No Panel Informationon 07-10 Estimated Creatinine Clearance Calc 58.16 ml/min [facility] Work Phone: Estimated GFR (MDRD) Amer 82 mL/min >60 [facility] Work Phone: Comment on above: GFR Calc Estimated GFR (MDRD) Non-Af Amer 68 mL/min >60 [facility] Work Phone: Comment on above: Non- GFR Calc Platelets bldon 07-10-2022 Platelets (Bld) [#/Vol] 193 10*3/uL 150-450 [facility] Work Phone: Serum or plasma calcium zora urement (mass/volume)on 07-10-2022 Calcium [Mass/Vol] 8.8 mg/dL 8.5-10.1 [facility] Work Phone: Serum or plasma creatinine m easurement (mass/volume)on 07-10-2022 Creatinine [Mass/Vol] 0.86 mg/dL 0.55-1.02 [facility] Work Phone: Comment on above: The validity of the calculated GFR & GFRAA in patients over 70 years has not been determined. Clinical correlation is essential. Serum or plasma urea nitroge n measurement (mass/volume)on 07-10-2022 Urea nitrogen [Mass/Vol] 19 mg/dL 7-18 [facility] Work Phone: Thin prep Papanicolaou smear with manual screeningon 07-10-2022 Thin prep Papanicolaou smear with manual screening 8 5-15 [facility] Work Phone: Absolute lymphocyte counton 02-11-2022 Lymphocytes Auto (Unsp spec) [#/Vol] 0.98 10*3/uL 0.83-4.51 [facility] Work Phone: Basophil percentageon 2021 Basophils/100 WBC (Bld) 0.4 % 0-1 [facility] Work Phone: Chloride [Moles/Vol] 104 mmol/L 98-107 [facility] Work Phone: Eosinophils/100 WBC (Bld) 4.0 % 0-5 [facility] Work Phone: Glucose [Mass/Vol] 144 mg/dL 74-106 [facility] Work Phone: Comment on above: Fasting Glucose resu lt greater than or equal to 126 mg/dL suggests DIABETES MELLITUS per A.D.A. criteria. Neutrophils (Bld) [#/Vol] 5.3 10*3/uL 2.0-7.7 [facility] Work Phone: Neutrophils/100 WBC (Bld) 75.1 % 47-70 [facility] Work Phone: Potassium [Moles/Vol] 4.1 mmol/L 3.5-5.1 [facility] Work Phone: Sodium [Moles/Vol] 138 mmol/L 136-145 [facility] Work Phone: WBC (Bld) [#/Vol] 7.1 10*3/uL 4.4-11.0 [facility] Work Phone: Blood erythrocytes count (nu mber/volume)on 02-11-2022 RBC (Bld) [#/Vol] 4.54 10*6/uL 4.2-5.4 [facility] Work Phone: Blood hemoglobin measurement (mass/volume)on 02-11-2022 Hemoglobin (Bld) [Mass/Vol] 13.4 g/dL 12.0-15.0 [facility] Work Phone: Blood lymphocytes/100 leukoc yteson 02-11-2022 Lymphocytes/100 WBC (Bld) 13.9 % 19-41 [facility] Work Phone: Blood monocytes/100 leukocyt eson 02-11-2022 Monocytes/100 WBC (Bld) 6.5 % 0-10 [facility] Work Phone: Blood platelet mean volumeon 02-11-2022 Platelet mean volume (Bld) [Entitic vol] 11.6 fL 6.2-12.0 [facility] Work Phone: Determination of erythrocyte mean corpuscular volume (MCV)on 02-11-2022 MCV (RBC) [Entitic vol] 88.8 fL 81-99 [facility] Work Phone: Hematocrit Auto (Bld) [Volum e fraction]on 02-11-2022 Hematocrit (Bld) [Volume fraction] 40.3 % 37-47 [facility] Work Phone: Laboratory - Chemistry and C hemistry - challengeon 02-11-2022 CO2 [Moles/Vol] 30.0 mmol/L 21.0-32.0 [facility] Work Phone: Urea nitrogen/Creatinine [Mass ratio] 14.4 mg/mg 10-20 [facility] Work Phone: Laboratory - Hematology and Cell countson 02-11-2022 Erythrocyte distribution width (RBC) [Entitic vol] 41.5 fL 35.1-43.9 [facility] Work Phone: Erythrocyte distribution width (RBC) [Ratio] 12.7 % 11.6-14.6 [facility] Work Phone: Immature granulocytes/100 WBC (Bld) 0.100 % 0.0-0.9 [facility] Work Phone: Comment on above: IG% - Immature Granu locytes (promyelocytes, myelocytes and metamyelocytes) > 1% indicates that a LEFT SHIFT is Present. MCH (RBC) [Entitic mass] 29.5 pg 27.0-32.0 [facility] Work Phone: Nucleated RBC/100 WBC (Bld) [Ratio] 0 % 0-5 [facility] Work Phone: MCHC Auto (RBC) [Mass/Vol]on 02-11-2022 MCHC (RBC) [Mass/Vol] 33.3 g/dL 32-36 [facility] Work Phone: No Panel Informationon 02-11 Estimated Creatinine Clearance Calc 48.09 ml/min [facility] Work Phone: Estimated GFR (MDRD) Amer 66 mL/min >60 [facility] Work Phone: Comment on above: GFR Calc Estimated GFR (MDRD) Non-Af Amer 55 mL/min >60 [facility] Work Phone: Comment on above: Non- GFR Calc Thyroid Stimulating Hormone (TSH) 2.08 uIU/mL 0.358-3.74 [facility] Work Phone: Platelets bldon 02-11-2022 Platelets (Bld) [#/Vol] 187 10*3/uL 150-450 [facility] Work Phone: Serum or plasma calcium zora urement (mass/volume)on 02-11-2022 Calcium [Mass/Vol] 9.2 mg/dL 8.5-10.1 [facility] Work Phone: Serum or plasma creatinine m easurement (mass/volume)on 02-11-2022 Creatinine [Mass/Vol] 1.04 mg/dL 0.55-1.02 [facility] Work Phone: Comment on above: The validity of the calculated GFR & GFRAA in patients over 70 years has not been determined. Clinical correlation is essential. Serum or plasma urea nitroge n measurement (mass/volume)on 02-11-2022 Urea nitrogen [Mass/Vol] 15 mg/dL 7-18 [facility] Work Phone: Thin prep Papanicolaou smear with manual screeningon 02-11-2022 Thin prep Papanicolaou smear with manual screening 4 5-15 [facility] Work Phone: XR HUMERUS 2V AP/LAT RIGHTon 12-17-2021 [facility] XR Humerus - right AP and La teralon 12-17-2021 IMPRESSION: No acute process. [employer]otive Lot Attendant: EVIE Transcribe Date/Time: Dec 17 2021 1:44P [...] present. [id number]_ USE_DIVISIO N OF RADIOLOGY Provider, [facility] - 12/17/2021 * * *Final Report* * [...] is present. IMPRESSION IMPRESSION: No acute process. [employer]otive Lot Attendant: EVIE Transcribe Date/Time: Dec 17 2021 1:44P Dictated by : CESAR REYES MD This examination was interpreted and the report reviewed and electronically signed by: CESAR REYES MD on Dec 17 2021 1:47PM EST [facility] Radiology Study observation (narrative) [facility] XR Humerus - right AP and La teralOrdered By: [facility] Provider on 12-17-2021 [facility] No Panel Informationon 12-16 [facility] No Panel Informationon 10-29 [facility] Basic metabolic 2000 panelon 09-11-2021 Anion gap [Moles/Vol] 13 mmol/L 9 - 18 mmol/L [facility] Calcium [Mass/Vol] 10.3 mg/dL High 8.5 - 10. 2 mg/dL [facility] Chloride [Moles/Vol] 102 mmol/L 97 - 10 5 mmol/L [facility] CO2 [Moles/Vol] 25 mmol/L 22 - 30 mmol/L [facility] Creatinine [Mass/Vol] 0.79 mg/dL 0.58 - 0.96 mg/dL [facility] GFR/1.73 sq M.predicted among blacks MDRD (S/P/Bld) [Vol rate/Area] mL/min/{1.73_m2} [facility] GFR/1.73 sq M.predicted among non-blacks MDRD (S/P/Bld) [Vol rate/Area] mL/min/{1.73_m2} [facility] Glucose [Mass/Vol] 88 mg/dL 74 - 99 mg/dL [facility] Potassium [Moles/Vol] 4.3 mmol/L 3.7 - 5.1 mmol/L [facility] Sodium [Moles/Vol] 140 mmol/L 136 - 144 mmol/L [facility] Urea nitrogen [Mass/Vol] 19 mg/dL 7 - 21 mg/dL [facility] CBC panel Auto (Bld)on 09-11 Absolute nRBC <0.01 <0.01 k/uL [facility] Erythrocyte distribution width (RBC) [Ratio] 12.5 % 11.5 - 15.0 % [facility] Hematocrit (Bld) [Volume fraction] 45.0 % 36.0 - 46.0 % [facility] Hemoglobin (Bld) [Mass/Vol] 14.4 g/dL 11.5 - 15.5 g/dL [facility] MCH (RBC) [Entitic mass] 29.4 pG 26. 0 - 34.0 pG [facility] MCHC (RBC) [Mass/Vol] 32.0 g/dL 30.5 - 36.0 g/dL [facility] MCV (RBC) [Entitic vol] 92.0 fL 80.0 - 100.0 fL [facility] Platelet mean volume (Bld) [Entitic vol] 12.1 fL 9.0 - 12.7 fL [facility] Platelets (Bld) [#/Vol] 204 10*3/uL 150 - 400 k/uL [facility] RBC (Bld) [#/Vol] 4.89 10*6/uL 3.90 - 5.2 0 m/uL [facility] WBC (Bld) [#/Vol] 6.76 10*3/uL 3.70 - 11.00 k/uL [facility] VITAMIN D 25 HYDROXYon 09-11 25-hydroxyvitamin D3 [Mass/Vol] 74.4 ng/mL 31.0 - 80.0 ng/mL [facility] Office Visiton 11-22-2016 Dietary management education, guidance, and counseling (procedure) yes Invalid Interpretation Code [employer] Work Phone: Documentation of current medications (procedure) Done Invalid Interpretation Code [employer] Work Phone: 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-19-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 Left ventricular Ejection fraction 65 % Invalid Interpretation Code [employer] Work Phone: Office Visiton 07-21-2015 Documentation of current medications (procedure) Done Invalid Interpretation Code [employer] Work Phone: Tobacco use CPHS Former smoker Invalid Interpretation Code [employer] Work Phone: Office Visit: [facility] 01-07-20 15 cardiac risk group B Invalid Interpretation Code [employer] Work Phone: General cardiovascular disease 10Y risk [#] [place].D'Agost[place] 9 % Invalid Interpretation Code [employer] Work Phone: [phone] Replaced Document: Melissa UNDERWOOD Observationson 01-06-2015 electrocardiogram interpretation Sinus Rhythm WITHIN NORMAL LIMITS Invalid Interpretation Code [employer] Work Phone: [phone] GE use only - for [employer] import when terms are not otherwise specified 428 ms Invalid Interpretation Code [facility] Work Phone: [phone] P wave axis, electrocardiogram 67 deg Invalid Interpretation Code [employer] Work Phone: [phone] [place] interval, electrocardiogram 130 ms Invalid Interpretation Code [employer] Work Phone: [phone] Pulse (Heart Rate) 60 /min Invalid Interpretation Code [facility] Work Phone: [phone] QRS axis, electrocardiogram 44 deg Invalid Interpretation Code [employer] Work Phone: [phone] QRS duration, electrocardiogram 88 ms Invalid Interpretation Code [facility] Work Phone: [phone] QT interval, electrocardiogram new path ms Invalid Interpretation Code [employer] Work Phone: [phone] T wave axis, electrocardiogram 51 deg Invalid Interpretation Code [employer] Work Phone: [phone] Lab Report: Drawn @ [facility] Cholesterol 147 mg/dL Invalid Interpretation Code [employer] Work Phone: [phone] HDL Cholesterol 59 mg/dL Invalid Interpretation Code [employer] Work Phone: [phone] LDL Cholesterol 75 mg/dL Invalid Interpretation Code [employer] Work Phone: [phone] Triglyceride 65 mg/dL Invalid Interpretation Code [employer] Work Phone: [phone] low density lipoproteins 13 mg/dL Invalid Interpretation Code [employer] Work Phone: [phone] Replaced Document: Melissa UNDERWOOD Observationson 03-23-2013 Pulse (Heart Rate) 445 ms Invalid Interpretation Code [employer] Work Phone: 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 Anion gap 10 mmol/L Invalid Interpretation Code [employer] Work Phone: [phone] BUN/Creatinine Ratio 25.0 mg/mg Invalid Interpretation Code [employer] Work Phone: [phone] Calcium 8.3 mg/dL Invalid Interpretation Code [facility] Work Phone: [phone] Chloride 105 mmol/L Invalid Interpretation Code [facility] Work Phone: [phone] CO2 26.0 mmol/L Invalid Interpretation Code [facility] Work Phone: [phone] Creatinine 0.8 mg/dL Invalid Interpretation Code [facility] [place][Note 2] [employer] Work Phone: [phone] Erythrocytes (RBC) 4.14 10*6/uL Invalid Interpretation Code [facility] Work Phone: [phone] Glucose 244 mg/dL [facility] Work Phone: [phone] Hematocrit (HCT) 36.6 % Invalid Interpretation Code [facility] [place][Note 2] [employer] Work Phone: [phone] Hemoglobin (HGB) 12.5 g/dL Invalid Interpretation Code [facility] [place][Note 2] [employer] Work Phone: [phone] MCH 30.1 pg Invalid Interpretation Code [facility] Work Phone: [phone] MCV 88.5 fL Invalid Interpretation Code [facility] Work Phone: [phone] Platelets 163 10*3/mm3 Invalid Interpretation Code [facility] Work Phone: [phone] Potassium 4.2 mmol/L Invalid Interpretation Code [facility] Work Phone: [phone] Sodium 141 mmol/L Invalid Interpretation Code [facility] Work Phone: [phone] Urea nitrogen 20 mg/dL Invalid Interpretation Code [facility] Work Phone: [phone] WBC (Leukocytes) 7.1 10*3/uL Invalid Interpretation Code [facility] [place][Note 2] [employer] Work Phone: [phone] 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 Thyroid stimulating hormone (TSH) 2.01 u[iU]/mL Invalid Interpretation Code [facility] Work Phone: [phone] Culture, urine Bacteria identified Cx Nom (U) Positive [facility] Work Phone: Gram stain for investigation of transfusion reaction Microscopic observation Gram stain Nom (Unsp spec) [facility] Work Phone: Influenza virus A and B and SARS-CoV-2 (COVID-19) Ag panel - Upper respiratory specim SARS-CoV-2 & FLU Antigen (Rapid) SARS-CoV-2 (COVID 19) [facility] Work Phone: Laboratory - Microbiology an d Antimicrobial susceptibility Bacteria identified Cx Nom (Bld) No growth in 5 days. [facility] Work Phone: Microbial respiratory cultur e Bacteria identified Respiratory culture Nom (Unsp spec) or Staphylococcus aureus isolated. [facility] Work Phone: No Panel Information Streptococcus pneumoniae Antigen (M [facility] Work Phone: SARS-CoV-2 (COVID-19) Ag IA. rapid Ql (Resp) SARS-CoV-2 Antigen (Rapid) SARS-CoV-2 (COVID 19) [facility] Work Phone: Vital Signs Date Time Vital Sign Value Performing Clinician Facility 04-04-2025 22:24-0400 Body temperature 97.8 [degF] Dr. Octavio Reza MD Work Phone: [facility] 04-04-2025 22:24-0400 Diastolic blood pressure 64 mm[Hg] Dr. Octavio Reza MD Work Phone: [facility] 04-04-2025 22:24-0400 Heart rate 61 /min Dr. Octavio Reza MD Work Phone: [facility] 04-04-2025 22:24-0400 Respiratory rate 16 /min Dr. Octavio Reza MD Work Phone: [facility] 04-04-2025 22:24-0400 SaO2% (BldA) [Mass fraction] 96 % Dr. Octavio Reza MD Work Phone: [facility] 04-04-2025 22:24-0400 Systolic blood pressure 132 mm[Hg] Dr. Octavio Reza MD Work Phone: [facility] 04-04-2025 20:22-0400 Body mass index (BMI) [Ratio] 41.1 kg/m2 Dr. Octavio Reza MD Work Phone: [facility] 04-04-2025 20:22-0400 Body weight 126.[address] Octavio Reza MD Work Phone: [facility] 04-04-2025 19:35-0400 Body height 175.[address] Octavio Reza MD Work Phone: [facility] 03-19-2025 11:09-0400 Body mass index (BMI) [Ratio] 39.98 kg/m2 Arleen Bobbi [employer].TITLE CURATIVE SPECIALIST Work Phone: [facility] 03-19-2025 11:09-0400 Body weight 124.6 kg Arleen Bobbi [employer]ER.TITLE CURATIVE SPECIALIST Work Phone: [facility] 03-19-2025 11:09-0400 Diastolic blood pressure 72 mm[Hg] Arleen Bobbi [employer] ENGINEER.TITLE CURATIVE SPECIALIST Work Phone: [facility] 03-19-2025 11:09-0400 Heart rate 60 /min Arleen Bobbi [employer] ENGINEER.TITLE CURATIVE SPECIALIST Work Phone: [facility] 03-19-2025 11:09-0400 Respiratory rate 16 /min Arleen Bobbi [employer]ER.TITLE CURATIVE SPECIALIST Work Phone: [facility] 03-19-2025 11:09-0400 SaO2% (BldA) [Mass fraction] 97 % Arleen Bobbi [employer]ER.TITLE CURATIVE SPECIALIST Work Phone: [facility] 03-19-2025 11:09-0400 Systolic blood pressure 124 mm[Hg] Arleen Bobbi [employer] ENGINEER.TITLE CURATIVE SPECIALIST Work Phone: [facility] 02-06-2025 12:00-0400 Body height 176.5 cm Renetta Cioce [employer] ENG[employer]ER.TITLE CURATIVE SPECIALIST Work Phone: [facility] 02-06-2025 12:00-0400 Body mass index (BMI) [Ratio] 39.74 kg/m2 Renetta Cioce [employer].TITLE CURATIVE SPECIALIST Work Phone: [facility] 02-06-2025 12:00-0400 Body weight 123.83 kg Renetta Cioce [employer] ENGINEER.TITLE CURATIVE SPECIALIST Work Phone: [facility] 02-06-2025 12:00-0400 Diastolic blood pressure 88 mm[Hg] Renetta Cioce [employer] ENGINEER.TITLE CURATIVE SPECIALIST Work Phone: [facility] 02-06-2025 12:00-0400 Heart rate 64 /min Renetta Cioce [employer] ENGINEER.TITLE CURATIVE SPECIALIST Work Phone: [facility] 02-06-2025 12:00-0400 Respiratory rate 19 /min Renetta Cioce [employer] ENGINEER.TITLE CURATIVE SPECIALIST Work Phone: [facility] 02-06-2025 12:00-0400 SaO2% (BldA) [Mass fraction] 95 % Renetta Cioce [employer] ENGINEER.TITLE CURATIVE SPECIALIST Work Phone: [facility] 02-06-2025 12:00-0400 Systolic blood pressure 132 mm[Hg] Renetta Cioce [employer] ENGINEER.TITLE CURATIVE SPECIALIST Work Phone: [facility] 01-29-2025 14:01-0400 Diastolic blood pressure 72 mm[Hg] Davon Narda [employer] ENGINEER.TITLE CURATIVE SPECIALIST Work Phone: [facility] 01-29-2025 14:01-0400 Heart rate 56 /min Davon Narda [employer] ENGINEER.TITLE CURATIVE SPECIALIST Work Phone: [facility] 01-29-2025 14:01-0400 Respiratory rate 16 /min Davon Narda [employer] ENGINEER.TITLE CURATIVE SPECIALIST Work Phone: [facility] 01-29-2025 14:01-0400 Systolic blood pressure 148 mm[Hg] Davon Narda [employer] ENGINEER.TITLE CURATIVE SPECIALIST Work Phone: [facility] 01-25-2025 22:14-0400 Body temperature 98 [degF] Dr. Octavio Reza MD Work Phone: [facility] 01-25-2025 22:14-0400 Diastolic blood pressure 72 mm[Hg] Dr. Octavio Reza MD Work Phone: [facility] 01-25-2025 22:14-0400 Heart rate 72 /min Dr. Octavio Reza MD Work Phone: [facility] 01-25-2025 22:14-0400 Respiratory rate 18 /min Dr. Octavio Reza MD Work Phone: [facility] 01-25-2025 22:14-0400 SaO2% (BldA) [Mass fraction] 97 % Dr. Octavio Reza MD Work Phone: [facility] 01-25-2025 22:14-0400 Systolic blood pressure 140 mm[Hg] Dr. Octavio Reza MD Work Phone: [facility] 01-25-2025 20:39-0400 Body height 175.[address] Octavio Reza MD Work Phone: [facility] 01-15-2025 09:56-0400 Body height 176.5 cm Octavio Reza MD Work Phone: [facility] 01-15-2025 09:56-0400 Body mass index (BMI) [Ratio] 40.43 kg/m2 Octavio Reza MD Work Phone: [facility] 01-15-2025 09:56-0400 Body weight 126 kg Octavio Reza MD Work Phone: [facility] 01-15-2025 09:56-0400 Diastolic blood pressure 80 mm[Hg] Octavio Reza MD Work Phone: [facility] 01-15-2025 09:56-0400 Heart rate 59 /min Octavio Reza MD Work Phone: [facility] 01-15-2025 09:56-0400 Respiratory rate 16 /min Octavio Reza MD Work Phone: [facility] 01-15-2025 09:56-0400 Systolic blood pressure 138 mm[Hg] Octavio Reza MD Work Phone: [facility] 01-14-2025 09:11-0400 Body height 175.[address] Octavio Reza MD Work Phone: 1(178)071-058496 [place] [address] 01-14-2025 09:11-0400 Body mass index (BMI) [Ratio] 41.2 kg/m2 Dr. Octavio Reza MD Work Phone: 6(949)686-902096 [place] [address] 01-14-2025 09:11-0400 Body weight 126.[address] Octvaio Reza MD Work Phone: 0(969)821-150496 [place] [address] 01-14-2025 09:11-0400 Diastolic blood pressure 76 mm[Hg] Dr. Octavio Reza MD Work Phone: 7(034)050-141796 [place] [address] 01-14-2025 09:11-0400 Heart rate 56 /min Dr. Octavio Reza MD Work Phone: 3(707)767-147896 [place] [address] 01-14-2025 09:11-0400 Respiratory rate 18 /min Dr. Octavio Reza MD Work Phone: 8(741)895-900096 [place] [address] 01-14-2025 09:11-0400 Systolic blood pressure 147 mm[Hg] Dr. Octavio Reza MD Work Phone: 1(089)792-941896 [place] [address] 01-04-2025 23:10-0400 Body temperature 98 [degF] Dr. Octavio Reza MD Work Phone: 6(696)807-874596 [place] [address] 01-04-2025 23:10-0400 Diastolic blood pressure 54 mm[Hg] Dr. Octavio Reza MD Work Phone: 1(940)675-202796 [place] [address] 01-04-2025 23:10-0400 Heart rate 64 /min Dr. Octavio Reza MD Work Phone: 5(806)032-007596 [place] [address] 01-04-2025 23:10-0400 Respiratory rate 16 /min Dr. Octavio Reza MD Work Phone: 7(474)969-912696 [place] [address] 01-04-2025 23:10-0400 SaO2% (BldA) [Mass fraction] 95 % Dr. Octavio Reza MD Work Phone: 4(290)135-604796 [place] [address] 01-04-2025 23:10-0400 Systolic blood pressure 137 mm[Hg] Dr. Octavio Reza MD Work Phone: 1(304)735-060496 [place] [address] 01-04-2025 19:16-0400 Body height 175.[address] Octavio Reza MD Work Phone: 4(831)400-364096 [place] [address] 12-19-2024 17:46-0400 Body temperature 97.7 [degF] Dr. Octavio Reza MD Work Phone: 7(595)933-801296 [place] [address] 12-19-2024 17:46-0400 Diastolic blood pressure 63 mm[Hg] Dr. Octavio Reza MD Work Phone: 0(638)654-035296 [place] [address] 12-19-2024 17:46-0400 Heart rate 88 /min Dr. Octavio Reza MD Work Phone: 7(471)777-558996 [place] [address] 12-19-2024 17:46-0400 Respiratory rate 16 /min Dr. Octavio Reza MD Work Phone: 3(833)223-054996 [place] [address] 12-19-2024 17:46-0400 SaO2% (BldA) [Mass fraction] 99 % Dr. Octavio Reza MD Work Phone: 7(154)384-368396 [place] [address] 12-19-2024 17:46-0400 Systolic blood pressure 167 mm[Hg] Dr. Octavio Reza MD Work Phone: 8(401)740-699396 [place] [address] 12-19-2024 15:55-0400 Body mass index (BMI) [Ratio] 42.4 kg/m2 Dr. Octavio Reza MD Work Phone: 6(226)236-045896 [place] [address] 12-19-2024 15:55-0400 Body weight 130.[address] Octavio Reza MD Work Phone: 4(291)386-019296 [place] [address] 12-19-2024 15:49-0400 Body height 175.[address] Octavio Reza MD Work Phone: 6(333)191-387996 [place] [address] 11-29-2024 23:34-0400 Body temperature 98 [degF] Dr. Octavio Reza MD Work Phone: 1(211)312-077096 [place] [address] 11-29-2024 23:34-0400 Diastolic blood pressure 69 mm[Hg] Dr. Octavio Reza MD Work Phone: 4(104)928-142096 [place] [address] 11-29-2024 23:34-0400 Heart rate 90 /min Dr. Octavio Reza MD Work Phone: 0(946)570-514396 [place] [address] 11-29-2024 23:34-0400 Respiratory rate 18 /min Dr. Octavio Reza MD Work Phone: 1(538)526-605396 [place] [address] 11-29-2024 23:34-0400 SaO2% (BldA) [Mass fraction] 98 % Dr. Octavio Reza MD Work Phone: 8(032)059-802996 [place] [address] 11-29-2024 23:34-0400 Systolic blood pressure 157 mm[Hg] Dr. Octavio Reza MD Work Phone: 6(431)620-145996 [place] [address] 11-29-2024 21:15-0400 Body mass index (BMI) [Ratio] 42.8 kg/m2 Dr. Octavio Reza MD Work Phone: 6(792)830-670596 [place] [address] 11-29-2024 21:15-0400 Body weight 131.[address] Octavio Reza MD Work Phone: 3(461)614-701696 [place] [address] 11-29-2024 21:13-0400 Body height 175.[address] Octavio Reza MD Work Phone: 2(633)970-163596 [place] [address] 11-15-2024 08:20-0400 Body mass index (BMI) [Ratio] 41.6 kg/m2 Dr. Octavio Reza MD Work Phone: 7(537)809-904196 [place] [address] 11-15-2024 08:20-0400 Body weight 127.[address] Octavio Reza MD Work Phone: 5(433)972-352396 [place] [address] 11-15-2024 08:20-0400 Diastolic blood pressure 64 mm[Hg] Dr. Octavio Reza MD Work Phone: 2(541)744-048996 [place] [address] 11-15-2024 08:20-0400 Heart rate 72 /min Dr. Octavio Reza MD Work Phone: 6(112)244-735596 [place] [address] 11-15-2024 08:20-0400 Respiratory rate 18 /min Dr. Octavio Reza MD Work Phone: 1(083)133-477996 [place] [address] 11-15-2024 08:20-0400 Systolic blood pressure 137 mm[Hg] Dr. Octavio Reza MD Work Phone: 5(214)433-639796 [place] [address] 11-03-2024 11:07-0400 Body temperature 97.8 [degF] Dr. Octavio Reza MD Work Phone: 2(188)974-221596 [place] [address] 11-03-2024 11:07-0400 Diastolic blood pressure 59 mm[Hg] Dr. Octavio Reza MD Work Phone: 3(419)650-260896 [place] [address] 11-03-2024 11:07-0400 Heart rate 87 /min Dr. Octavio Reza MD Work Phone: 2(594)684-313996 [place] [address] 11-03-2024 11:07-0400 Respiratory rate 16 /min Dr. Octavio Reza MD Work Phone: 1(646)754-419796 [place] [address] 11-03-2024 11:07-0400 SaO2% (BldA) [Mass fraction] 98 % Dr. Octavio Reza MD Work Phone: 8(629)140-653091 [place] [address] 11-03-2024 11:07-0400 Systolic blood pressure 153 mm[Hg] Dr. Octavio Reza MD Work Phone: 9(855)246-508391 [place] [address] 11-03-2024 06:56-0400 Body height 175.[address] Octavio Reza MD Work Phone: 6(920)934-352891 [place] [address] 11-03-2024 06:56-0400 Body mass index (BMI) [Ratio] 43.2 kg/m2 Dr. Octavio Reza MD Work Phone: 4(274)145-206291 [place] [address] 11-03-2024 06:56-0400 Body weight 132.[address] Octavio Reza MD Work Phone: [facility] 10-31-2024 15:00-0400 Body mass index (BMI) [Ratio] 42.27 kg/m2 Renetta Cioce [employer].TITLE CURATIVE SPECIALIST Work Phone: [facility] 10-31-2024 15:00-0400 Body temperature 97.81 [degF] Renetta Cioce [employer] ENGINEER.TITLE CURATIVE SPECIALIST Work Phone: [facility] 10-31-2024 15:00-0400 Body weight 131.72 kg Renetta Cioce [employer] ENGINEER.TITLE CURATIVE SPECIALIST Work Phone: [facility] 10-31-2024 15:00-0400 Heart rate 72 /min Renetta Cioce [employer] ENGINEER.TITLE CURATIVE SPECIALIST Work Phone: [facility] 10-31-2024 15:00-0400 SaO2% (BldA) [Mass fraction] 96 % Renetta Cioce [employer] ENGINEER.TITLE CURATIVE SPECIALIST Work Phone: [facility] 10-24-2024 22:08-0400 Body temperature 98 [degF] Dr. Octavio Reza MD Work Phone: [facility] 10-24-2024 22:08-0400 Diastolic blood pressure 60 mm[Hg] Dr. Octavio Reza MD Work Phone: [facility] 10-24-2024 22:08-0400 Heart rate 71 /min Dr. Octavio Reza MD Work Phone: [facility] 10-24-2024 22:08-0400 Respiratory rate 18 /min Dr. Octavio Reza MD Work Phone: [facility] 10-24-2024 22:08-0400 SaO2% (BldA) [Mass fraction] 95 % Dr. Octavio Reza MD Work Phone: [facility] 10-24-2024 22:08-0400 Systolic blood pressure 150 mm[Hg] Dr. Octavio Reza MD Work Phone: [facility] 10-24-2024 20:50-0400 Body mass index (BMI) [Ratio] 46 kg/m2 Dr. Octavio Reza MD Work Phone: 1(022)810-458496 [place] [address] 10-24-2024 20:50-0400 Body weight 141.[address] Octavio Reza MD Work Phone: 7(885)907-766796 [place] [address] 10-24-2024 20:23-0400 Body height 175.[address] Octavio Reza MD Work Phone: 5(745)984-853196 [place] [address] 10-19-2024 12:41-0400 Body temperature 97.8 [degF] Dr. Octavio Reza MD Work Phone: 8(147)527-044596 [place] [address] 10-19-2024 12:41-0400 Diastolic blood pressure 78 mm[Hg] Dr. Octavio Reza MD Work Phone: 0(468)252-499996 [place] [address] 10-19-2024 12:41-0400 Heart rate 73 /min Dr. Octavio Reza MD Work Phone: 1(707)006-558796 [place] [address] 10-19-2024 12:41-0400 Respiratory rate 14 /min Dr. Octavio eRza MD Work Phone: 8(005)036-346596 [place] [address] 10-19-2024 12:41-0400 SaO2% (BldA) [Mass fraction] 97 % Dr. Octavio Reza MD Work Phone: 2(609)948-323796 [place] [address] 10-19-2024 12:41-0400 Systolic blood pressure 141 mm[Hg] Dr. Octavio Reza MD Work Phone: 3(968)451-684696 [place] [address] 10-19-2024 09:42-0400 Body mass index (BMI) [Ratio] 42.4 kg/m2 Dr. Octavio Reza MD Work Phone: 3(673)919-649896 [place] [address] 10-19-2024 09:42-0400 Body weight 130.[address] Octavio Reza MD Work Phone: 1(897)232-402996 [place] [address] 10-19-2024 09:27-0400 Body height 175.[address] Octavio Reza MD Work Phone: [facility] 10-15-2024 13:40-0400 Body mass index (BMI) [Ratio] 42.2 kg/m2 Octavio Reza MD Work Phone: [facility] 10-15-2024 13:40-0400 Body weight 131.5 kg Octavio Reza MD Work Phone: [facility] 10-15-2024 13:40-0400 Diastolic blood pressure 64 mm[Hg] Octavio Reza MD Work Phone: [facility] 10-15-2024 13:40-0400 Heart rate 64 /min Octavio Reza MD Work Phone: [facility] 10-15-2024 13:40-0400 Respiratory rate 14 /min Octavio Reza MD Work Phone: [facility] 10-15-2024 13:40-0400 Systolic blood pressure 140 mm[Hg] Octavio Reza MD Work Phone: [facility] 09-26-2024 10:04-0400 Body mass index (BMI) [Ratio] 43.03 kg/m2 Octavio Reza MD Work Phone: [facility] 09-26-2024 10:04-0400 Body weight 134.1 kg Octavio Reza MD Work Phone: [facility] 09-26-2024 10:04-0400 Diastolic blood pressure 75 mm[Hg] Octavio Reza MD Work Phone: [facility] 09-26-2024 10:04-0400 Heart rate 55 /min Octavio Reza MD Work Phone: [facility] 09-26-2024 10:04-0400 Respiratory rate 16 /min Octavio Reza MD Work Phone: [facility] 09-26-2024 10:04-0400 Systolic blood pressure 143 mm[Hg] Octavio Reza MD Work Phone: [facility] 09-23-2024 22:36-0400 Body temperature 98 [degF] Dr. Octavio Reza MD Work Phone: 8(181)159-454296 [place] [address] 09-23-2024 22:36-0400 Diastolic blood pressure 57 mm[Hg] Dr. Octavio Reza MD Work Phone: 9(522)629-579896 [place] [address] 09-23-2024 22:36-0400 Heart rate 65 /min Dr. Octavio Reza MD Work Phone: 7(322)876-796496 [place] [address] 09-23-2024 22:36-0400 Respiratory rate 18 /min Dr. Octavio Reza MD Work Phone: 3(446)649-619196 [place] [address] 09-23-2024 22:36-0400 SaO2% (BldA) [Mass fraction] 99 % Dr. Octavio Reza MD Work Phone: 9(791)369-159796 [place] [address] 09-23-2024 22:36-0400 Systolic blood pressure 135 mm[Hg] Dr. Octavio Reza MD Work Phone: 8(306)462-834096 [place] [address] 09-23-2024 19:25-0400 Body height 175.[address] Octavio Reza MD Work Phone: 3(553)249-773996 [place] [address] 09-23-2024 19:25-0400 Body mass index (BMI) [Ratio] 44 kg/m2 Dr. Octavio Reza MD Work Phone: 4(793)081-422596 [place] [address] 09-23-2024 19:25-0400 Body weight 135.[address] Octavio Reza MD Work Phone: 2(832)305-840796 [place] [address] 09-21-2024 10:19-0500 Body temperature 97.9 [degF] Dr. Octavio Reza MD Work Phone: 8(656)754-843396 [place] [address] 09-21-2024 10:19-0500 Diastolic blood pressure 50 mm[Hg] Dr. Octavio Reza MD Work Phone: 3(815)773-313096 [place] [address] 09-21-2024 10:19-0500 Heart rate 73 /min Dr. Octavio Reza MD Work Phone: 8(545)753-936096 [place] [address] 09-21-2024 10:19-0500 Respiratory rate 16 /min Dr. Octavio Reza MD Work Phone: 1(557)235-964896 [place] [address] 09-21-2024 10:19-0500 SaO2% (BldA) [Mass fraction] 99 % Dr. Octavio Reza MD Work Phone: 2(108)697-594796 [place] [address] 09-21-2024 10:19-0500 Systolic blood pressure 118 mm[Hg] Dr. Octavio Reza MD Work Phone: 9(905)656-182396 [place] [address] 09-21-2024 06:22-0500 Body height 175.[address] Octavio Reza MD Work Phone: 0(575)932-689696 [place] [address] 09-21-2024 06:22-0500 Body mass index (BMI) [Ratio] 43.7 kg/m2 Dr. Octavio Reza MD Work Phone: 8(599)451-221896 [place] [address] 09-21-2024 06:22-0500 Body weight 134.[address] Octavio Reza MD Work Phone: 5(599)290-102996 [place] [address] 09-20-2024 23:40-0500 Body temperature 98.4 [degF] Dr. Octavio Reza MD Work Phone: 0(144)179-037996 [place] [address] 09-20-2024 23:40-0500 Diastolic blood pressure 51 mm[Hg] Dr. Octavio Reza MD Work Phone: 7(995)011-245596 [place] [address] 09-20-2024 23:40-0500 Heart rate 80 /min Dr. Octavio Reza MD Work Phone: 4(607)839-425196 [place] [address] 09-20-2024 23:40-0500 Respiratory rate 18 /min Dr. Octavio Reza MD Work Phone: 6(194)369-448496 [place] [address] 09-20-2024 23:40-0500 SaO2% (BldA) [Mass fraction] 95 % Dr. Octavio Reza MD Work Phone: 9(940)945-868396 [place] [address] 09-20-2024 23:40-0500 Systolic blood pressure 116 mm[Hg] Dr. Octavio Reza MD Work Phone: 6(962)212-488296 [place] [address] 09-20-2024 17:49-0500 Body height 175.[address] Octavio Reza MD Work Phone: 7(198)753-856096 [place] [address] 07-28-2024 22:41-0500 Body temperature 97.4 [degF] Dr. Octavio Reza MD Work Phone: 2(885)289-117296 [place] [address] 07-28-2024 22:41-0500 Diastolic blood pressure 74 mm[Hg] Dr. Octavio Reza MD Work Phone: 5(704)110-971296 [place] [address] 07-28-2024 22:41-0500 Heart rate 59 /min Dr. Octavio Reza MD Work Phone: 8(309)789-017296 [place] [address] 07-28-2024 22:41-0500 Respiratory rate 18 /min Dr. Octavio Reza MD Work Phone: 4(524)470-913996 [place] [address] 07-28-2024 22:41-0500 SaO2% (BldA) [Mass fraction] 98 % Dr. Octavio Reza MD Work Phone: 4(324)502-076096 [place] [address] 07-28-2024 22:41-0500 Systolic blood pressure 160 mm[Hg] Dr. Octavio Reza MD Work Phone: 1(723)532-473196 [place] [address] 07-28-2024 20:36-0500 Body mass index (BMI) [Ratio] 45.3 kg/m2 Dr. Octavio Reza MD Work Phone: 8(634)835-502491 [place] [address] 07-28-2024 20:36-0500 Body weight 139.[address] Octavio Reza MD Work Phone: 8(749)324-230796 [place] [address] 07-03-2024 14:30-0500 Diastolic blood pressure 73 mm[Hg] Lydia Grande APRN.REAL ESTATE LEGAL SECRETARY Work Phone: [facility] Comment on above: bp average 07-03-2024 14:30-0500 Heart rate 67 /min Lydia Grande APRN.REAL ESTATE LEGAL SECRETARY Work Phone: [facility] 07-03-2024 14:30-0500 Systolic blood pressure 132 mm[Hg] Lydia Grande [employer] ENGINEER.REAL ESTATE LEGAL SECRETARY Work Phone: [facility] Comment on above: bp average 07-03-2024 14:25-0500 Body mass index (BMI) [Ratio] 44.22 kg/m2 Lydia Greens [employer] ENGINEER.REAL ESTATE LEGAL SECRETARY Work Phone: [facility] 07-03-2024 14:25-0500 Body weight 137.8 kg Lydia Grande [employer]IVIL ENGINEER.REAL ESTATE LEGAL SECRETARY Work Phone: [facility] 07-03-2024 14:25-0500 Respiratory rate 16 /min [facility] [employer]IVIL ENGINEER.REAL ESTATE LEGAL SECRETARY Work Phone: [facility] 07-03-2024 00:49-0500 Body temperature 97.6 [degF] Dr. Octavio Reza MD Work Phone: [facility] 07-03-2024 00:49-0500 Diastolic blood pressure 71 mm[Hg] Dr. Octavio Reza MD Work Phone: [facility] 07-03-2024 00:49-0500 Heart rate 60 /min Dr. Octavio Reza MD Work Phone: [facility] 07-03-2024 00:49-0500 Respiratory rate 19 /min Dr. Octavio Reza MD Work Phone: [facility] 07-03-2024 00:49-0500 SaO2% (BldA) [Mass fraction] 97 % Dr. Octavio Reza MD Work Phone: [facility] 07-03-2024 00:49-0500 Systolic blood pressure 142 mm[Hg] Dr. Octavio Reza MD Work Phone: [facility] 07-02-2024 21:59-0500 Body mass index (BMI) [Ratio] 44.9 kg/m2 Dr. Octavio Reza MD Work Phone: [facility] 07-02-2024 21:59-0500 Body weight 137.[address] Octavio Reza MD Work Phone: [facility] 06-13-2024 08:55-0500 Body mass index (BMI) [Ratio] 44.9 kg/m2 Dr. Octavio Reza MD Work Phone: [facility] 06-13-2024 08:55-0500 Body weight 137.[address] Octavio Reza MD Work Phone: [facility] 06-13-2024 08:55-0500 Diastolic blood pressure 65 mm[Hg] Dr. Octavio Reza MD Work Phone: [facility] 06-13-2024 08:55-0500 Heart rate 58 /min Dr. Octavio Reza MD Work Phone: [facility] 06-13-2024 08:55-0500 Respiratory rate 18 /min Dr. Octavio Reza MD Work Phone: [facility] 06-13-2024 08:55-0500 Systolic blood pressure 155 mm[Hg] Dr. Octavio Reza MD Work Phone: [facility] 06-11-2024 09:46-0500 Body mass index (BMI) [Ratio] 44.86 kg/m2 Octavio Reza MD Work Phone: [facility] 06-11-2024 09:46-0500 Body weight 139.8 kg Octavio Reza MD Work Phone: [facility] 06-11-2024 09:46-0500 Diastolic blood pressure 78 mm[Hg] Octavio Reza MD Work Phone: [facility] 06-11-2024 09:46-0500 Heart rate 51 /min Octavio Reza MD Work Phone: [facility] 06-11-2024 09:46-0500 SaO2% (BldA) [Mass fraction] 96 % Octavio Reza MD Work Phone: [facility] 06-11-2024 09:46-0500 Systolic blood pressure 124 mm[Hg] Octavio Reza MD Work Phone: [facility] 06-08-2024 19:19-0500 Body temperature 97.7 [degF] Dr. Octavio Reza MD Work Phone: [facility] 06-08-2024 19:19-0500 Diastolic blood pressure 85 mm[Hg] Dr. Octavio Reza MD Work Phone: [facility] 06-08-2024 19:19-0500 Heart rate 64 /min Dr. Octavio Reza MD Work Phone: 2(807)489-521696 [place] [address] 06-08-2024 19:19-0500 Respiratory rate 18 /min Dr. Octavio Reza MD Work Phone: [facility] 06-08-2024 19:19-0500 SaO2% (BldA) [Mass fraction] 94 % Dr. Octavio Reza MD Work Phone: [facility] 06-08-2024 19:19-0500 Systolic blood pressure 150 mm[Hg] Dr. Octavio Reza MD Work Phone: 9(463)[phone] [place] [address] 06-08-2024 17:11-0500 Body mass index (BMI) [Ratio] 46.2 kg/m2 Dr. Octavio Reza MD Work Phone: 2(819)216-302592 [place] [address] 06-08-2024 17:11-0500 Body weight 141.[address] Octavio Reza MD Work Phone: [facility] 05-27-2024 21:02-0500 Body temperature 97.8 [degF] Dr. Octavio Reza MD Work Phone: [facility] 05-27-2024 21:02-0500 Diastolic blood pressure 80 mm[Hg] Dr. Octavio Reza MD Work Phone: [facility] 05-27-2024 21:02-0500 Heart rate 68 /min Dr. Octavio Reza MD Work Phone: 3(498)[phone] [place] [address] 05-27-2024 21:02-0500 Respiratory rate 18 /min Dr. Octavio Reza MD Work Phone: 8(264)014-737996 [place] [address] 05-27-2024 21:02-0500 SaO2% (BldA) [Mass fraction] 97 % Dr. Octavio Reza MD Work Phone: 4(954)[phone] [place] [address] 05-27-2024 21:02-0500 Systolic blood pressure 146 mm[Hg] Dr. Octavio Reza MD Work Phone: 9(778)472-546496 [place] [address] 05-25-2024 06:17-0500 Body temperature 97 [degF] Dr. Octavio Reza MD Work Phone: 8(093)820-164896 [place] [address] 05-25-2024 06:17-0500 Diastolic blood pressure 53 mm[Hg] Dr. Octavio Reza MD Work Phone: 6(450)857-738296 [place] [address] 05-25-2024 06:17-0500 Heart rate 72 /min Dr. Octavio Reza MD Work Phone: 7(456)756-739896 [place] [address] 05-25-2024 06:17-0500 Respiratory rate 17 /min Dr. Octavio Reza MD Work Phone: 3(716)635-564196 [place] [address] 05-25-2024 06:17-0500 SaO2% (BldA) [Mass fraction] 95 % Dr. Octavio Reza MD Work Phone: 9(409)411-355096 [place] [address] 05-25-2024 06:17-0500 Systolic blood pressure 121 mm[Hg] Dr. Octavio Reza MD Work Phone: 8(926)838-435396 [place] [address] 05-25-2024 04:47-0500 Body mass index (BMI) [Ratio] 46.1 kg/m2 Dr. Octavio Reza MD Work Phone: 6(740)971-130496 [place] [address] 05-25-2024 04:47-0500 Body weight 141.[address] Octavio Reza MD Work Phone: 1(395)396-802496 [place] [address] 05-23-2024 12:31-0500 Body height 176.5 cm Renetta Cioce [employer].TITLE CURATIVE SPECIALIST Work Phone: [facility] 05-23-2024 12:31-0500 Body mass index (BMI) [Ratio] 44.98 kg/m2 Renetta Cioce [employer].TITLE CURATIVE SPECIALIST Work Phone: [facility] 05-23-2024 12:31-0500 Body weight 140.16 kg Renetta Cioce [employer] ENGINEER.TITLE CURATIVE SPECIALIST Work Phone: [facility] 05-23-2024 12:31-0500 Diastolic blood pressure 72 mm[Hg] Renetta Cioce [employer] ENGINEER.TITLE CURATIVE SPECIALIST Work Phone: [facility] 05-23-2024 12:31-0500 Heart rate 60 /min Renetta Cioce [employer] ENGINEER.TITLE CURATIVE SPECIALIST Work Phone: [facility] 05-23-2024 12:31-0500 Respiratory rate 20 /min Renetta Cioce [employer] ENGINEER.TITLE CURATIVE SPECIALIST Work Phone: [facility] 05-23-2024 12:31-0500 SaO2% (BldA) [Mass fraction] 97 % Renetta Cioce [employer] ENGINEER.TITLE CURATIVE SPECIALIST Work Phone: [facility] 05-23-2024 12:31-0500 Systolic blood pressure 138 mm[Hg] Renetta Cioce [employer] ENGINEER.TITLE CURATIVE SPECIALIST Work Phone: [facility] 05-07-2024 15:18-0400 Diastolic blood pressure 72 mm[Hg] Davon Narda [employer] ENGINEER.TITLE CURATIVE SPECIALIST Work Phone: [facility] 05-07-2024 15:18-0400 Systolic blood pressure 140 mm[Hg] Davon Narda [employer] ENGINEER.TITLE CURATIVE SPECIALIST Work Phone: [facility] 05-07-2024 15:09-0400 Body mass index (BMI) [Ratio] 45.31 kg/m2 Davon Narda [employer]INEER.TITLE CURATIVE SPECIALIST Work Phone: [facility] 05-07-2024 15:09-0400 Body weight 141.2 kg Davon Narda [employer] ENGINEER.TITLE CURATIVE SPECIALIST Work Phone: [facility] 05-07-2024 15:09-0400 Heart rate 60 /min Davon Narda [employer] ENG[employer]ER.TITLE CURATIVE SPECIALIST Work Phone: [facility] 05-07-2024 15:09-0400 SaO2% (BldA) [Mass fraction] 97 % Davon Narda [employer].TITLE CURATIVE SPECIALIST Work Phone: [facility] 04-18-2024 09:24-0400 Body mass index (BMI) [Ratio] 46.18 kg/m2 Smiley Banda [employer] ENG[employer]ER.TITLE CURATIVE SPECIALIST Work Phone: [facility] 04-18-2024 09:24-0400 Body temperature 97.3 [degF] Smiley Banda [employer].TITLE CURATIVE SPECIALIST Work Phone: [facility] 04-18-2024 09:24-0400 Body weight 143.9 kg Smiley Banda [employer] ENGINEER.TITLE CURATIVE SPECIALIST Work Phone: [facility] 04-18-2024 09:24-0400 Diastolic blood pressure 84 mm[Hg] Smiley Banda [employer] ENGINEER.TITLE CURATIVE SPECIALIST Work Phone: [facility] 04-18-2024 09:24-0400 Heart rate 60 /min Smiley Banda [employer] ENGINEER.TITLE CURATIVE SPECIALIST Work Phone: [facility] 04-18-2024 09:24-0400 Respiratory rate 18 /min Smiley Banda [employer] ENGINEER.TITLE CURATIVE SPECIALIST Work Phone: [facility] 04-18-2024 09:24-0400 SaO2% (BldA) [Mass fraction] 97 % Smiley Banda [employer] ENGINEER.TITLE CURATIVE SPECIALIST Work Phone: [facility] 04-18-2024 09:24-0400 Systolic blood pressure 136 mm[Hg] Smiley Banda [employer] ENGINEER.TITLE CURATIVE SPECIALIST Work Phone: [facility] 03-07-2024 10:50-0400 Diastolic blood pressure 82 mm[Hg] Radha Click [employer] ENG[employer]ER.TITLE CURATIVE SPECIALIST Work Phone: [facility] 03-07-2024 10:50-0400 Heart rate 72 /min Radha Click [employer] ENGINEER.TITLE CURATIVE SPECIALIST Work Phone: [facility] 03-07-2024 10:50-0400 Respiratory rate 15 /min Radha Click [employer] ENGINEER.TITLE CURATIVE SPECIALIST Work Phone: [facility] 03-07-2024 10:50-0400 SaO2% (BldA) [Mass fraction] 97 % Radha Click [employer] ENGINEER.TITLE CURATIVE SPECIALIST Work Phone: [facility] 03-07-2024 10:50-0400 Systolic blood pressure 132 mm[Hg] Radha Click [employer] ENGINEER.TITLE CURATIVE SPECIALIST Work Phone: [facility] 02-15-2024 14:34-0400 Body height 176.5 cm Renetta Cioce [employer] ENGINEER.TITLE CURATIVE SPECIALIST Work Phone: [facility] 02-15-2024 14:34-0400 Body mass index (BMI) [Ratio] 45.85 kg/m2 Renetta Cioce [employer] ENGINEER.TITLE CURATIVE SPECIALIST Work Phone: [facility] 02-15-2024 14:34-0400 Body temperature 97.81 [degF] Renetta Cioce [employer] ENGINEER.TITLE CURATIVE SPECIALIST Work Phone: [facility] 02-15-2024 14:34-0400 Body weight 142.88 kg Renetta Cioce [employer] ENGINEER.TITLE CURATIVE SPECIALIST Work Phone: [facility] 02-15-2024 14:34-0400 Heart rate 65 /min Renetta Cioce [employer] ENGINEER.TITLE CURATIVE SPECIALIST Work Phone: [facility] 02-15-2024 14:34-0400 SaO2% (BldA) [Mass fraction] 96 % Renetta Cioce [employer] ENGINEER.TITLE CURATIVE SPECIALIST Work Phone: [facility] 02-13-2024 09:17-0400 Body mass index (BMI) [Ratio] 45.88 kg/m2 Octavio Reza MD Work Phone: [facility] 02-13-2024 09:17-0400 Body temperature 97.5 [degF] Octavio Reza MD Work Phone: [facility] 02-13-2024 09:17-0400 Body weight 142.97 kg Octavio Reza MD Work Phone: [facility] 02-13-2024 09:17-0400 Diastolic blood pressure 80 mm[Hg] Octavio Reza MD Work Phone: [facility] 02-13-2024 09:17-0400 Heart rate 59 /min Octavio Reza MD Work Phone: [facility] 02-13-2024 09:17-0400 Respiratory rate 16 /min Octavio Reza MD Work Phone: [facility] 02-13-2024 09:17-0400 SaO2% (BldA) [Mass fraction] 97 % Octavio Reza MD Work Phone: [facility] 02-13-2024 09:17-0400 Systolic blood pressure 130 mm[Hg] Octavio Reza MD Work Phone: [facility] 01-02-2024 11:16-0400 Body mass index (BMI) [Ratio] 46.66 kg/m2 Tamika Morris MD Work Phone: [facility] 01-02-2024 11:16-0400 Body temperature 97.59 [degF] Tamika Morris MD Work Phone: [facility] 01-02-2024 11:16-0400 Body weight 145.4 kg Tamika Morris MD Work Phone: [facility] 01-02-2024 11:16-0400 Diastolic blood pressure 82 mm[Hg] Tamika Morris MD Work Phone: [facility] 01-02-2024 11:16-0400 Heart rate 60 /min Tamika Morris MD Work Phone: [facility] 01-02-2024 11:16-0400 Respiratory rate 18 /min Tamika Morris MD Work Phone: [facility] 01-02-2024 11:16-0400 SaO2% (BldA) [Mass fraction] 95 % Tamika Morris MD Work Phone: [facility] 01-02-2024 11:16-0400 Systolic blood pressure 152 mm[Hg] Tamika Morris MD Work Phone: [facility] 12-07-2023 10:13-0400 Body height 176.5 cm Renetta Cioce [employer] ENGINEER.TITLE CURATIVE SPECIALIST Work Phone: [facility] 12-07-2023 10:13-0400 Body mass index (BMI) [Ratio] 48.03 kg/m2 Renetta Cioce [employer]INEER.TITLE CURATIVE SPECIALIST Work Phone: [facility] 12-07-2023 10:13-0400 Body weight 149.69 kg Renetta Cioce [employer] ENGINEER.TITLE CURATIVE SPECIALIST Work Phone: [facility] 12-07-2023 10:13-0400 Diastolic blood pressure 70 mm[Hg] Renetta Cioce [employer] ENGINEER.TITLE CURATIVE SPECIALIST Work Phone: [facility] 12-07-2023 10:13-0400 Heart rate 58 /min Renetta Cioce [employer] ENGINEER.TITLE CURATIVE SPECIALIST Work Phone: [facility] 12-07-2023 10:13-0400 Respiratory rate 20 /min Renetta Cioce [employer] ENGINEER.TITLE CURATIVE SPECIALIST Work Phone: [facility] 12-07-2023 10:13-0400 SaO2% (BldA) [Mass fraction] 96 % Renetta Cioce [employer] ENGINEER.TITLE CURATIVE SPECIALIST Work Phone: [facility] 12-07-2023 10:13-0400 Systolic blood pressure 132 mm[Hg] Renetta Cioce [employer] ENGINEER.TITLE CURATIVE SPECIALIST Work Phone: [facility] 11-29-2023 00:00-0400 Body temperature 98.7 [degF] Dr. Octavio Reza Work Phone: [facility] 11-29-2023 00:00-0400 Diastolic blood pressure 59 mm[Hg] Dr. Octavio Reza Work Phone: [facility] 11-29-2023 00:00-0400 Heart rate 85 /min Dr. Octavio Reza Work Phone: [facility] 11-29-2023 00:00-0400 Respiratory rate 16 /min Dr. Octavio eRza Work Phone: 4(551)232-444596 [place] [address] 11-29-2023 00:00-0400 SaO2% (BldA) [Mass fraction] 99 % Dr. Octavio Reza Work Phone: 5(850)471-009491 [place] [address] 11-29-2023 00:00-0400 Systolic blood pressure 130 mm[Hg] Dr. Octavio Reza Work Phone: 8(838)816-451796 [place] [address] 11-28-2023 20:06-0400 Body mass index (BMI) [Ratio] 53.1 kg/m2 Dr. Octavio Reza Work Phone: 1(824)186-848296 [place] [address] 11-28-2023 20:06-0400 Body weight 159.[address] Octavio Reza Work Phone: 3(719)602-712396 [place] [address] 11-28-2023 18:51-0400 Body height 172.[address] Octavio Reza Work Phone: 8(406)542-842996 [place] [address] 11-09-2023 15:10-0400 Diastolic blood pressure 70 mm[Hg] Davon Narda [employer]INEER.TITLE CURATIVE SPECIALIST Work Phone: [facility] 11-09-2023 15:10-0400 Systolic blood pressure 132 mm[Hg] Davon Narda [employer]INEER.TITLE CURATIVE SPECIALIST Work Phone: [facility] 11-09-2023 15:08-0400 Body mass index (BMI) [Ratio] 48.88 kg/m2 Davon Narda [employer] ENGINEER.TITLE CURATIVE SPECIALIST Work Phone: [facility] 11-09-2023 15:08-0400 Body weight 150.14 kg Davon Narda [employer] ENGINEER.TITLE CURATIVE SPECIALIST Work Phone: [facility] 11-09-2023 15:08-0400 Heart rate 63 /min Davon Narda [employer] ENGINEER.TITLE CURATIVE SPECIALIST Work Phone: [facility] 11-09-2023 15:08-0400 SaO2% (BldA) [Mass fraction] 98 % Davon Wolfe APRN.CNP Work Phone: [facility] 11-07-2023 17:47-0400 Diastolic blood pressure 65 mm[Hg] Dr. Octavio Reza Work Phone: [facility] 11-07-2023 17:47-0400 Heart rate 74 /min Dr. Octavio Reza Work Phone: [facility] 11-07-2023 17:47-0400 Respiratory rate 16 /min Dr. Octavio Reza Work Phone: [facility] 11-07-2023 17:47-0400 SaO2% (BldA) [Mass fraction] 95 % Dr. Octavio Reza Work Phone: [facility] 11-07-2023 17:47-0400 Systolic blood pressure 161 mm[Hg] Dr. Octavio Reza Work Phone: [facility] 11-07-2023 15:43-0400 Body height 175.[address] Octavio Reza Work Phone: [facility] 11-07-2023 15:43-0400 Body temperature 97.1 [degF] Dr. Octavio Reza Work Phone: [facility] 11-07-2023 00:02-0400 Body temperature 96.5 [degF] Dr. Octavio Reza Work Phone: [facility] 11-07-2023 00:02-0400 Diastolic blood pressure 62 mm[Hg] Dr. Octavio Reza Work Phone: [facility] 11-07-2023 00:02-0400 Heart rate 61 /min Dr. Octavio Reza Work Phone: [facility] 11-07-2023 00:02-0400 Respiratory rate 18 /min Dr. Octavio Reza Work Phone: [facility] 11-07-2023 00:02-0400 SaO2% (BldA) [Mass fraction] 97 % Dr. Octavio Reza Work Phone: [facility] 11-07-2023 00:02-0400 Systolic blood pressure 150 mm[Hg] Dr. Octavio Reza Work Phone: [facility] 11-07-2023 00:01-0400 Body mass index (BMI) [Ratio] 49.1 kg/m2 Dr. Octavio Reza Work Phone: [facility] 11-07-2023 00:01-0400 Body weight [address] Octavio Reza Work Phone: [facility] 11-06-2023 19:26-0400 Body height 175.[address] Octavio Reza Work Phone: [facility] 10-31-2023 08:12-0400 Body temperature 97.3 [degF] Tamika Morris MD Work Phone: [facility] 10-31-2023 08:12-0400 Body weight 156.04 kg Tamika Morris MD Work Phone: [facility] 10-31-2023 08:12-0400 Diastolic blood pressure 82 mm[Hg] Tamika Morris MD Work Phone: [facility] 10-31-2023 08:12-0400 Heart rate 59 /min Tamika Morris MD Work Phone: [facility] 10-31-2023 08:12-0400 Respiratory rate 18 /min Tamika Morris MD Work Phone: [facility] 10-31-2023 08:12-0400 SaO2% (BldA) [Mass fraction] 96 % Tamika Morris MD Work Phone: [facility] 10-31-2023 08:12-0400 Systolic blood pressure 142 mm[Hg] Tamika Morris MD Work Phone: 0(904)180-937160 [place] [address] 10-28-2023 21:12-0400 Body temperature 97.7 [degF] Dr. Octavio Reza Work Phone: 1(250)733-612096 [place] [address] 10-28-2023 21:12-0400 Diastolic blood pressure 58 mm[Hg] Dr. Octavio Reza Work Phone: 6(158)326-091596 [place] [address] 10-28-2023 21:12-0400 Heart rate 63 /min Dr. Octavio Reza Work Phone: 1(751)014-603096 [place] [address] 10-28-2023 21:12-0400 Respiratory rate 16 /min Dr. Octavio Reza Work Phone: 0(899)128-411196 [place] [address] 10-28-2023 21:12-0400 SaO2% (BldA) [Mass fraction] 95 % Dr. Octavio Reza Work Phone: 5(246)097-739796 [place] [address] 10-28-2023 21:12-0400 Systolic blood pressure 152 mm[Hg] Dr. Octavio Reza Work Phone: 0(475)073-541496 [place] [address] 10-28-2023 19:23-0400 Body mass index (BMI) [Ratio] 50.8 kg/m2 Dr. Octavio Reza Work Phone: 9(158)923-104396 [place] [address] 10-28-2023 19:23-0400 Body weight [address] Octavio Reza Work Phone: 7(820)176-003196 [place] [address] 10-28-2023 18:51-0400 Body height 175.[address] Octavio Reza Work Phone: 5(107)214-177196 [place] [address] 10-01-2023 16:37-0400 Body temperature 98 [degF] Dr. Octavio Reza Work Phone: 7(102)094-367096 [place] [address] 10-01-2023 16:37-0400 Diastolic blood pressure 65 mm[Hg] Dr. Octavio Reza Work Phone: 3(048)061-812496 [place] [address] 10-01-2023 16:37-0400 Heart rate 72 /min Dr. Octavio Reza Work Phone: 4(006)451-210296 [place] [address] 10-01-2023 16:37-0400 Respiratory rate 18 /min Dr. Octavio Reza Work Phone: 3(419)482-923896 [place] [address] 10-01-2023 16:37-0400 SaO2% (BldA) [Mass fraction] 95 % Dr. Octavio Reza Work Phone: 0(352)678-447996 [place] [address] 10-01-2023 16:37-0400 Systolic blood pressure 142 mm[Hg] Dr. Octavio Reza Work Phone: 7(272)385-593096 [place] [address] 10-01-2023 14:35-0400 Body mass index (BMI) [Ratio] 49.8 kg/m2 Dr. Octavio Reza Work Phone: 7(805)834-695996 [place] [address] 10-01-2023 14:35-0400 Body weight 153.[address] Octavio Reza Work Phone: 5(666)817-313696 [place] [address] 10-01-2023 14:33-0400 Body height 175.[address] Octavio Reza Work Phone: 2(230)106-906996 [place] [address] 09-29-2023 09:36-0400 Body mass index (BMI) [Ratio] 49.8 kg/m2 Dr. Octavio Reza Work Phone: 8(356)929-864296 [place] [address] 09-29-2023 09:36-0400 Body weight 153.[address] Octavio Reza Work Phone: 3(827)937-934296 [place] [address] 09-29-2023 09:36-0400 Diastolic blood pressure 66 mm[Hg] Dr. Octavio Reza Work Phone: 4(001)713-130896 [place] [address] 09-29-2023 09:36-0400 Respiratory rate 16 /min Dr. Octavio Reza Work Phone: 1(267)225-639796 [place] [address] 09-29-2023 09:36-0400 Systolic blood pressure 143 mm[Hg] Dr. Octavio Reza Work Phone: 9(532)797-957596 [place] [address] 09-22-2023 13:02-0500 Body weight 155.13 kg Christine Bianchi MD Work Phone: [facility] 09-22-2023 13:02-0500 Diastolic blood pressure 68 mm[Hg] Christine Bianchi MD Work Phone: [facility] 09-22-2023 13:02-0500 Heart rate 65 /min Christine Bianchi MD Work Phone: [facility] 09-22-2023 13:02-0500 Respiratory rate 18 /min Christine Bianchi MD Work Phone: [facility] 09-22-2023 13:02-0500 SaO2% (BldA) [Mass fraction] 96 % Christine Bianchi MD Work Phone: [facility] 09-22-2023 13:02-0500 Systolic blood pressure 136 mm[Hg] Christine Bianchi MD Work Phone: [facility] 09-21-2023 03:44-0500 Body temperature 97.7 [degF] [facility] 09-21-2023 03:44-0500 Diastolic blood pressure 79 mm[Hg] [facility] 09-21-2023 03:44-0500 Heart rate 64 /min [facility] 09-21-2023 03:44-0500 Respiratory rate 13 /min [facility] 09-21-2023 03:44-0500 SaO2% (BldA) [Mass fraction] 97 % [facility] 09-21-2023 03:44-0500 Systolic blood pressure 120 mm[Hg] [facility] 09-21-2023 00:22-0500 Body height 175.26 cm [facility] 09-21-2023 00:22-0500 Body mass index (BMI) [Ratio] 50.7 kg/m2 [facility] 09-21-2023 00:22-0500 Body weight 155.9 kg [facility] 09-16-2023 20:17-0500 Body temperature 97.2 [degF] [facility] 09-16-2023 20:17-0500 Diastolic blood pressure 58 mm[Hg] [facility] 09-16-2023 20:17-0500 Heart rate 59 /min [facility] 09-16-2023 20:17-0500 Respiratory rate 18 /min [facility] 09-16-2023 20:17-0500 SaO2% (BldA) [Mass fraction] 98 % [facility] 09-16-2023 20:17-0500 Systolic blood pressure 116 mm[Hg] [facility] 09-16-2023 17:54-0500 Body height 175.26 cm [facility] 09-16-2023 17:54-0500 Body mass index (BMI) [Ratio] 49 kg/m2 [facility] 09-16-2023 17:54-0500 Body weight 150.59 kg [facility] 09-01-2023 12:05-0500 Body weight 156.49 kg Lydia Grande [employer] ENGINEER.REAL ESTATE LEGAL SECRETARY Work Phone: [facility] 09-01-2023 12:05-0500 Diastolic blood pressure 74 mm[Hg] Lydia Grande [employer] ENGINEER.REAL ESTATE LEGAL SECRETARY Work Phone: [facility] 09-01-2023 12:05-0500 Heart rate 64 /min Lydia Grande [employer] ENGINEER.REAL ESTATE LEGAL SECRETARY Work Phone: [facility] 09-01-2023 12:05-0500 Respiratory rate 16 /min Lydia Grande [employer] ENGINEER.REAL ESTATE LEGAL SECRETARY Work Phone: [facility] 09-01-2023 12:05-0500 SaO2% (BldA) [Mass fraction] 96 % Lydia Grande [employer] ENGINEER.REAL ESTATE LEGAL SECRETARY Work Phone: [facility] 09-01-2023 12:05-0500 Systolic blood pressure 144 mm[Hg] Lydia Grande [employer] ENGINEER.REAL ESTATE LEGAL SECRETARY Work Phone: [facility] 06-23-2023 08:53-0500 Diastolic blood pressure 84 mm[Hg] Tierney Nunez PA-C Work Phone: [facility] 06-23-2023 08:53-0500 Heart rate 57 /min Tierney Nunez PA-C Work Phone: [facility] 06-23-2023 08:53-0500 Respiratory rate 17 /min Tierney Nunez PA-C Work Phone: [facility] 06-23-2023 08:53-0500 SaO2% (BldA) [Mass fraction] 96 % Tierney Nunez PA-C Work Phone: [facility] 06-23-2023 08:53-0500 Systolic blood pressure 122 mm[Hg] Tierney Mayra PA-C Work Phone: [facility] 05-28-2023 21:52-0500 Diastolic blood pressure 61 mm[Hg] [facility] 05-28-2023 21:52-0500 Heart rate 58 /min [facility] 05-28-2023 21:52-0500 Respiratory rate 16 /min [facility] 05-28-2023 21:52-0500 SaO2% (BldA) [Mass fraction] 95 % [facility] 05-28-2023 21:52-0500 Systolic blood pressure 141 mm[Hg] [facility] 05-28-2023 18:21-0500 Body mass index (BMI) [Ratio] 50.6 kg/m2 [facility] 05-28-2023 18:21-0500 Body weight 155.6 kg [facility] 05-28-2023 18:19-0500 Body temperature 96.5 [degF] [facility] 05-23-2023 14:08-0500 Body temperature 97.2 [...] Anant Lees MD Work Phone: [facility] 02-13-2023 19:20-0400 Body temperature 97.8 [degF] Dr. Octavio Reza Work Phone: [facility] 02-13-2023 19:20-0400 Diastolic blood pressure 79 mm[Hg] Dr. Octavio Reza Work Phone: [facility] 02-13-2023 19:20-0400 Heart rate 67 /min Dr. Octavio Reza Work Phone: [facility] 02-13-2023 19:20-0400 Respiratory rate 14 /min Dr. Octavio Reza Work Phone: [facility] 02-13-2023 19:20-0400 SaO2% (BldA) [Mass fraction] 99 % Dr. Octavio Reza Work Phone: [facility] 02-13-2023 19:20-0400 Systolic blood pressure 145 mm[Hg] Dr. Octavio Reza Work Phone: [facility] 02-13-2023 18:16-0400 Body height 175.[address] Octavio Reza Work Phone: [facility] 02-13-2023 18:16-0400 Body mass index (BMI) [Ratio] 49.1 kg/m2 Dr. Octavio Reza Work Phone: [facility] 02-13-2023 18:16-0400 Body weight 151.[address] Octavio Reza Work Phone: [facility] 01-17-2023 13:47-0400 Body temperature 97 [degF] [...] Octavio Reza MD Work Phone: [facility] 11-22-2022 12:52-0400 Body height 175.[address] Octavio Reza Work Phone: 3(660)765-602396 [place] [address] 11-22-2022 12:52-0400 Body mass index (BMI) [Ratio] 49.1 kg/m2 Dr. Octavio Reza Work Phone: 6(535)458-810696 [place] [address] 11-22-2022 12:52-0400 Body weight 151.[address] Octavio Reza Work Phone: 9(759)325-386496 [place] [address] 11-22-2022 12:52-0400 Diastolic blood pressure 66 mm[Hg] Dr. Octavio Reza Work Phone: 3(992)260-747896 [place] [address] 11-22-2022 12:52-0400 Heart rate 65 /min Dr. Octavio Reza Work Phone: 6(233)308-912796 [place] [address] 11-22-2022 12:52-0400 Inhaled oxygen flow rate 1 L/min Dr. Octavio Reza Work Phone: 2(513)363-178796 [place] [address] 11-22-2022 12:52-0400 Respiratory rate 20 /min Dr. Octavio Reza Work Phone: 7(890)400-014896 [place] [address] 11-22-2022 12:52-0400 SaO2% (BldA) [Mass fraction] 96 % Dr. Octavio Reza Work Phone: 0(403)322-385096 [place] [address] 11-22-2022 12:52-0400 Systolic blood pressure 145 mm[Hg] Dr. Octavio Reza Work Phone: 2(310)613-295496 [place] [address] 11-04-2022 21:00-0400 Diastolic blood pressure 59 mm[Hg] Dr. Octavio Reza Work Phone: 0(664)551-548496 [place] [address] 11-04-2022 21:00-0400 Heart rate 72 /min Dr. Octavio Reza Work Phone: 3(828)072-134796 [place] [address] 11-04-2022 21:00-0400 Inhaled oxygen flow rate 1 L/min Dr. Octavio Reza Work Phone: 7(137)966-103396 [place] [address] 11-04-2022 21:00-0400 Respiratory rate 12 /min Dr. Octavio Reza Work Phone: 0(188)600-717191 [place] [address] 11-04-2022 21:00-0400 SaO2% (BldA) [Mass fraction] 98 % Dr. Octavio Reza Work Phone: 2(038)378-198896 [place] [address] 11-04-2022 21:00-0400 Systolic blood pressure 147 mm[Hg] Dr. Octavio Reza Work Phone: 4(693)849-965496 [place] [address] 11-04-2022 17:59-0400 Body height 175.[address] Octavio Reza Work Phone: 7(280)975-186796 [place] [address] 11-04-2022 17:59-0400 Body mass index (BMI) [Ratio] 49.6 kg/m2 Dr. Octavio Reza Work Phone: 7(533)863-421996 [place] [address] 11-04-2022 17:59-0400 Body temperature 98.3 [degF] Dr. Octavio Reza Work Phone: 6(508)843-384796 [place] [address] 11-04-2022 17:59-0400 Body weight 152.[address] Octavio Reza Work Phone: 1(016)240-010196 [place] [address] 10-11-2022 20:32-0400 Diastolic blood pressure 57 mm[Hg] Dr. Octavio Reza Work Phone: 9(430)762-627696 [place] [address] 10-11-2022 20:32-0400 Heart rate 76 /min Dr. Octavio Reza Work Phone: 9(326)[phone] [place] [address] 10-11-2022 20:32-0400 Respiratory rate 14 /min Dr. Octavio Reza Work Phone: 2(920)[phone] [place] [address] 10-11-2022 20:32-0400 SaO2% (BldA) [Mass fraction] 98 % Dr. Octavio Reza Work Phone: 2(076)[phone] [place] [address] 10-11-2022 20:32-0400 Systolic blood pressure 154 mm[Hg] Dr. Octavio Reza Work Phone: 6(437)922-833696 [place] [address] 10-11-2022 20:00-0400 Inhaled oxygen flow rate 1 L/min Dr. Octavio Reza Work Phone: [facility] 10-11-2022 16:10-0400 Body mass index (BMI) [Ratio] 50.3 kg/m2 Dr. Octavio Reza Work Phone: [facility] 10-11-2022 16:10-0400 Body weight 154.[address] Octavio Reza Work Phone: [facility] 10-11-2022 14:10-0400 Body height 175.[address] Octavio Reza Work Phone: [facility] 10-11-2022 14:10-0400 Body temperature 97.5 [degF] Dr. Octavio Reza Work Phone: [facility] 10-05-2022 12:57-0400 Body height 175.3 cm Davon Narda WASTEWATER PL[employer] CIVIL ENGINEER.TITLE CURATIVE SPECIALIST Work Phone: [facility] 10-05-2022 12:57-0400 Body temperature 97.39 [degF] Davon Narda W[employer] PL[employer] CIVIL ENGINEER.TITLE CURATIVE SPECIALIST Work Phone: [facility] 10-05-2022 12:57-0400 Body weight 151.05 kg Davon Narda W[employer] CIVIL ENGINEER.TITLE CURATIVE SPECIALIST Work Phone: [facility] 10-05-2022 12:57-0400 Diastolic blood pressure 62 mm[Hg] Davon Narda W[employer] CIVIL ENGINEER.TITLE CURATIVE SPECIALIST Work Phone: [facility] 10-05-2022 12:57-0400 Heart rate 71 /min Davon Narda [employer] CIV[employer] ENGINEER.TITLE CURATIVE SPECIALIST Work Phone: [facility] 10-05-2022 12:57-0400 Respiratory rate 16 /min Davon Narda [employer] CIV[employer] ENGINEER.TITLE CURATIVE SPECIALIST Work Phone: [facility] 10-05-2022 12:57-0400 SaO2% (BldA) [Mass fraction] 97 % Davon Narda [employer] CIV[employer] ENGINEER.TITLE CURATIVE SPECIALIST Work Phone: [facility] 10-05-2022 12:57-0400 Systolic blood pressure 138 mm[Hg] Davon Narda W[employer] CIV[employer] ENGINEER.TITLE CURATIVE SPECIALIST Work Phone: [facility] 10-01-2022 16:38-0400 Diastolic blood pressure 64 mm[Hg] Dr. Octavio Reza Work Phone: [facility] 10-01-2022 16:38-0400 Systolic blood pressure 143 mm[Hg] Dr. Octavio Reza Work Phone: [facility] 10-01-2022 16:37-0400 Heart rate 75 /min Dr. Octavio Reza Work Phone: [facility] 10-01-2022 16:37-0400 Respiratory rate 16 /min Dr. Octavio Reza Work Phone: [facility] 10-01-2022 16:37-0400 SaO2% (BldA) [Mass fraction] 97 % Dr. Octavio Reza Work Phone: [facility] 10-01-2022 14:21-0400 Body mass index (BMI) [Ratio] 49.4 kg/m2 Dr. Octavio Reza Work Phone: [facility] 10-01-2022 14:21-0400 Body weight 151.[address] Octavio Reza Work Phone: [facility] 10-01-2022 13:50-0400 Body height 175.[address] Octavio Reza Work Phone: [facility] 10-01-2022 13:50-0400 Body temperature 97.5 [degF] Dr. Octavio Reza Work Phone: [facility] 10-01-2022 13:50-0400 Inhaled oxygen flow rate 1 L/min Dr. Octavio Reza Work Phone: [facility] 09-07-2022 18:00-0500 Diastolic blood pressure 64 mm[Hg] Octavio Reza MD Work Phone: [facility] 09-07-2022 18:00-0500 Systolic blood pressure 144 mm[Hg] Octavio Reza MD Work Phone: [facility] 09-07-2022 17:29-0500 Body temperature 97.9 [degF] Octavio Reza MD Work Phone: [facility] [...] Octavio Reza MD Work Phone: [facility] 08-02-2022 13:25-0500 Body temperature 98.9 [degF] Dr. Octavio Reza Work Phone: [facility] 08-02-2022 13:25-0500 Diastolic blood pressure 61 mm[Hg] Dr. Octavio Reza Work Phone: 9(807)509-640691 [place] [address] 08-02-2022 13:25-0500 Heart rate 75 /min Dr. Octavio Reza Work Phone: 3(112)892-244696 [place] [address] 08-02-2022 13:25-0500 Inhaled oxygen flow rate 4 L/min Dr. Octavio Reza Work Phone: 3(312)338-158196 [place] [address] 08-02-2022 13:25-0500 Respiratory rate 17 /min Dr. Octavio Reza Work Phone: 7(441)716-525796 [place] [address] 08-02-2022 13:25-0500 SaO2% (BldA) [Mass fraction] 95 % Dr. Octavio Reza Work Phone: 1(778)082-750696 [place] [address] 08-02-2022 13:25-0500 Systolic blood pressure 148 mm[Hg] Dr. Octavio Reza Work Phone: 5(089)358-668296 [place] [address] 08-01-2022 11:18-0500 Body height 176.[address] Octavio Reza Work Phone: 3(663)816-756196 [place] [address] 08-01-2022 11:18-0500 Body weight 149.[address] Octavio Reza Work Phone: 9(915)938-102596 [place] [address] 07-31-2022 23:29-0500 Body mass index (BMI) [Ratio] 47.9 kg/m2 Dr. Octavio Reza Work Phone: 2(319)546-504096 [place] [address] 07-31-2022 22:25-0500 Body temperature 98.6 [degF] Dr. Octavio Reza Work Phone: 7(926)196-867491 [place] [address] Work Phone: 07-31-2022 22:25-0500 Diastolic blood pressure 50 mm[Hg] Dr. Octavio Reza Work Phone: 5(131)043-410591 [place] [address] Work Phone: 07-31-2022 22:25-0500 Heart rate 82 /min Dr. Octavio Reza Work Phone: [facility] Work Phone: 07-31-2022 22:25-0500 Inhaled oxygen flow rate 2 L/min Dr. Octavio Reza Work Phone: [facility] Work Phone: 07-31-2022 22:25-0500 Respiratory rate 20 /min Dr. Octavio Reza Work Phone: [facility] Work Phone: 07-31-2022 22:25-0500 SaO2% (BldA) [Mass fraction] 91 % Dr. Octavio Reza Work Phone: [facility] Work Phone: 07-31-2022 22:25-0500 Systolic blood pressure 142 mm[Hg] Dr. Octavio Reza Work Phone: 2(545)061-976891 [place] [address] Work Phone: 07-31-2022 17:52-0500 Body height 175.[address] Octavio Reza Work Phone: [facility] Work Phone: 07-31-2022 17:52-0500 Body mass index (BMI) [Ratio] 49.1 kg/m2 Dr. Octavio Reza Work Phone: [facility] Work Phone: 07-31-2022 17:52-0500 Body weight 151.[address] Octavio Reza Work Phone: [facility] Work Phone: 07-24-2022 09:31-0500 Inhaled oxygen flow rate 92 L/min Dr. Octavio Reza Work Phone: [facility] 07-24-2022 09:31-0500 SaO2% (BldA) [Mass fraction] 2 % Dr. Octavio Reza Work Phone: [facility] 07-24-2022 09:09-0500 Diastolic blood pressure 49 mm[Hg] Dr. Octavio Reza Work Phone: 4(433)024-680991 [place] [address] 07-24-2022 09:09-0500 Heart rate 84 /min Dr. Octavio Reza Work Phone: 6(868)591-225096 [place] [address] 07-24-2022 09:09-0500 Systolic blood pressure 127 mm[Hg] Dr. Octavio Reza Work Phone: 2(911)925-182396 [place] [address] 07-24-2022 09:03-0500 Body temperature 98.3 [degF] Dr. Octavio Reza Work Phone: 5(453)746-227196 [place] [address] 07-24-2022 09:03-0500 Respiratory rate 18 /min Dr. Octavio Reza Work Phone: 9(038)045-321896 [place] [address] 07-23-2022 15:10-0500 Body height 175.[address] Octavio Reza Work Phone: 8(175)984-744396 [place] [address] Work Phone: 07-23-2022 15:10-0500 Body weight 155.[address] Octavio Reza Work Phone: 0(141)728-893196 [place] [address] 07-19-2022 23:30-0500 Inhaled oxygen concentration 35 % Dr. Octavio Reza Work Phone: 9(703)788-611696 [place] [address] 07-18-2022 02:48-0500 Body mass index (BMI) [Ratio] 50.7 kg/m2 Dr. Octavio Reza Work Phone: 9(953)123-585496 [place] [address] 07-14-2022 14:59-0500 Body temperature 98.3 [degF] Dr. Octavio Reza Work Phone: 5(214)966-722596 [place] [address] 07-14-2022 14:59-0500 Diastolic blood pressure 65 mm[Hg] Dr. Octavio Reza Work Phone: 9(768)696-212896 [place] [address] 07-14-2022 14:59-0500 Heart rate 88 /min Dr. Octavio Reza Work Phone: 2(738)603-727196 [place] [address] 07-14-2022 14:59-0500 Inhaled oxygen flow rate 2 L/min Dr. Octavio Reza Work Phone: [facility] 07-14-2022 14:59-0500 Respiratory rate 18 /min Dr. Octavio Reza Work Phone: [facility] 07-14-2022 14:59-0500 SaO2% (BldA) [Mass fraction] 95 % Dr. Octavio Reza Work Phone: 5(170)990-766191 [place] [address] 07-14-2022 14:59-0500 Systolic blood pressure 153 mm[Hg] Dr. Octavio Reza Work Phone: 4(479)668-016702 [address] 07-12-2022 12:45-0500 Body weight 152.[address] Octavio Reza Work Phone: 3(842)220-775096 [place] [address] 07-10-2022 18:33-0500 Body mass index (BMI) [Ratio] 49.6 kg/m2 Dr. Octavio Reza Work Phone: 5(319)775-368191 [place] [address] 07-10-2022 17:47-0500 Inhaled oxygen flow rate 2 L/min Dr. Octavio Reza Work Phone: [facility] Work Phone: 07-10-2022 17:47-0500 SaO2% (BldA) [Mass fraction] 93 % Dr. Octavio Reza Work Phone: [facility] Work Phone: 07-10-2022 17:25-0500 Body temperature 98.8 [degF] Dr. Octavio Reza Work Phone: [facility] Work Phone: 07-10-2022 17:25-0500 Diastolic blood pressure 57 mm[Hg] Dr. Octavio Reza Work Phone: [facility] Work Phone: 07-10-2022 17:25-0500 Heart rate 94 /min Dr. Octavio Reza Work Phone: [facility] Work Phone: 07-10-2022 17:25-0500 Respiratory rate 28 /min Dr. Octavio Reza Work Phone: [facility] Work Phone: 07-10-2022 17:25-0500 Systolic blood pressure 151 mm[Hg] Dr. Octavio Reza Work Phone: [facility] Work Phone: 07-10-2022 14:16-0500 Body height 175.[address] Octavio Reza Work Phone: [facility] Work Phone: 07-10-2022 14:16-0500 Body mass index (BMI) [Ratio] 49.6 kg/m2 Dr. Octavio Reza Work Phone: [facility] Work Phone: 07-10-2022 14:16-0500 Body weight 152.[address] Octavio Reza Work Phone: [facility] Work Phone: 06-22-2022 10:54-0500 Body mass index (BMI) [Ratio] 51.5 kg/m2 Dr. Octavio Reza Work Phone: [facility] 06-22-2022 10:54-0500 Body weight 158.[address] Octavio Reza Work Phone: [facility] 06-22-2022 10:54-0500 Diastolic blood pressure 70 mm[Hg] Dr. Octavio Reza Work Phone: [facility] 06-22-2022 10:54-0500 Heart rate 58 /min Dr. Octavio Reza Work Phone: [facility] 06-22-2022 10:54-0500 Respiratory rate 18 /min Dr. Octavio Reza Work Phone: [facility] 06-22-2022 10:54-0500 SaO2% (BldA) [Mass fraction] 96 % Dr. Octavio Rzea Work Phone: [facility] 06-22-2022 10:54-0500 Systolic blood pressure 129 mm[Hg] Dr. Octavio Reza Work Phone: [facility] 05-18-2022 09:19-0400 Diastolic blood pressure 80 [...] 14:44-0400 Body weight 153.77 kg Lydia Grande W[employer]EW[employer] CIVIL ENGINEER.REAL ESTATE LEGAL SECRETARY Work Phone: [facility] 02-15-2022 14:44-0400 Diastolic blood pressure 60 mm[Hg] Lydia Grande W[employer] CIVIL ENGINEER.REAL ESTATE LEGAL SECRETARY Work Phone: [facility] 02-15-2022 14:44-0400 Heart rate 63 /min Lydia Grande W[employer] CIVIL ENGINEER.REAL ESTATE LEGAL SECRETARY Work Phone: [facility] 02-15-2022 14:44-0400 Respiratory rate 16 /min Lydia Grande W[employer] CIVIL ENGINEER.REAL ESTATE LEGAL SECRETARY Work Phone: [facility] 02-15-2022 14:44-0400 SaO2% (BldA) [Mass fraction] 96 % Lydia Grande [employer] CIVIL ENGINEER.REAL ESTATE LEGAL SECRETARY Work Phone: [facility] 02-15-2022 14:44-0400 Systolic blood pressure 144 mm[Hg] Lydia Grande W[employer] CIVIL ENGINEER.REAL ESTATE LEGAL SECRETARY Work Phone: [facility] 02-11-2022 15:20-0400 Diastolic blood pressure 74 mm[Hg] Dr. Octavio Reza Work Phone: [facility] Work Phone: 02-11-2022 15:20-0400 Heart rate 63 /min Dr. Octavio Reza Work Phone: [facility] Work Phone: 02-11-2022 15:20-0400 Respiratory rate 16 /min Dr. Octavio Reza Work Phone: [facility] Work Phone: 02-11-2022 15:20-0400 SaO2% (BldA) [Mass fraction] 96 % Dr. Octavio Reza Work Phone: [facility] Work Phone: 02-11-2022 15:20-0400 Systolic blood pressure 154 mm[Hg] Dr. Octavio Reza Work Phone: [facility] Work Phone: 02-11-2022 14:20-0400 Body height 175.[address] Octavio Reza Work Phone: [facility] Work Phone: 02-11-2022 14:20-0400 Body mass index (BMI) [Ratio] 51.9 kg/m2 Dr. Octavio Reza Work Phone: [facility] Work Phone: 02-11-2022 14:20-0400 Body temperature 97 [degF] Dr. Octavio Reza Work Phone: [facility] Work Phone: 02-11-2022 14:20-0400 Body weight 159.[address] Octavio Reza Work Phone: [facility] Work Phone: 01-11-2022 14:59-0400 Body weight [...] 97.11 [degF] Guillermo Maurer MD Work Phone: [facility] [...] 16:18-0400 Systolic blood pressure 154 mm[Hg] Guillermo Maurre MD Work Phone: [facility] 12-21-2021 11:21-0400 Body mass index (BMI) [Ratio] 50.1 kg/m2 Dr. Octavio Reza Work Phone: [facility] Work Phone: 12-21-2021 11:21-0400 Body weight 153.[address] Octavio Reza Work Phone: [facility] Work Phone: 12-21-2021 11:21-0400 Diastolic blood pressure 78 mm[Hg] Dr. Octavio Reza Work Phone: [facility] Work Phone: 12-21-2021 11:21-0400 Heart rate 59 /min Dr. Octavio Reza Work Phone: [facility] Work Phone: 12-21-2021 11:21-0400 Respiratory rate 18 /min Dr. Octavio Reza Work Phone: [facility] Work Phone: 12-21-2021 11:21-0400 SaO2% (BldA) [Mass fraction] 97 % Dr. Octavio Reza Work Phone: [facility] Work Phone: 12-21-2021 11:21-0400 Systolic blood pressure 160 mm[Hg] Dr. Octavio Reza Work Phone: [facility] Work Phone: 12-17-2021 12:44-0400 Body temperature 97.11 [degF] Wanda Praisler-Wood W[employer]EW[employer] CIVIL ENGINEER.TITLE CURATIVE SPECIALIST Work Phone: [facility] 12-17-2021 12:44-0400 Diastolic blood pressure 88 mm[Hg] Wanda Praisler-Wood WASTEW[employer] CIVIL ENGINEER.TITLE CURATIVE SPECIALIST Work Phone: [facility] 12-17-2021 12:44-0400 Heart rate 71 /min Wanda Praisler-Wood WASTEWATER PLANT CIVIL ENGINEER.TITLE CURATIVE SPECIALIST Work Phone: [facility] 12-17-2021 12:44-0400 Respiratory rate 18 /min Wanda Praisler-Wood WASTEWATER PL[employer] CIVIL ENGINEER.TITLE CURATIVE SPECIALIST Work Phone: [facility] 12-17-2021 12:44-0400 SaO2% (BldA) [Mass fraction] 96 % Wanda Praisler-Wood W[employer]EW[employer] PL[employer] CIVIL ENGINEER.TITLE CURATIVE SPECIALIST Work Phone: [facility] 12-17-2021 12:44-0400 Systolic blood pressure 146 mm[Hg] Wanda Praisler-Wood W[employer]EW[employer] CIVIL ENGINEER.TITLE CURATIVE SPECIALIST Work Phone: [facility] 10-29-2021 09:00-0400 Diastolic [...] BP Diastolic 70 mm[Hg] Bettina Vaca RN [facility] Work Phone: 07-21-2015 13:03-0500 BP Systolic 146 mm[Hg] Bettina Vaca RN [facility] Work Phone: 07-21-2015 13:03-0500 BSA (Body Surface Area) 2.65 m2 Bettina Vaca RN [facility] Work Phone: 07-21-2015 13:03-0500 Pulse (Heart Rate) 64 /min Bettina Vaca RN [facility] Work Phone: 07-21-2015 13:03-0500 Respiratory Rate 14 /min Bettina Vaca RN [facility] Work Phone: 07-21-2015 13:03-0500 Weight 158.76 kg Bettina Vaca RN [facility] Work Phone: 01-06-2015 15:20-0400 BMI (Body Mass Index) [facility] Work Phone: 03-15-2012 13:57-0400 Height 177.8 cm Bettina Vaca RN [facility] Work Phone: Encounters Encounter Date Encounter Type Care Provider Facility Start: 06-04-2025 ambulatory Arleen Milan PRODUCT DESIGNER Faci lity:[facility] Start: 05-29-2025 ambulatory OCTAVIO Mosley y:[facility] Start: 05-20-2025 End: 05-20-2025 ambulatory OCTAVIO Jodi ROGERSBEKA Facility:[facility] Start: 05-19-2025 End: 05-19-2025 Emergency department patient visit Octavio Zapata [place] Facility:[facility] Start: 05-08-2025 End: 05-08-2025 ambulatory OCTAVIO Zapata KENBKEA Facility:[facility] Start: 05-06-2025 End: 05-06-2025 ambulatory OCTAVIO Zapata SONIAGILBERT Facility:[facility] Start: 04-04-2025 End: 04-04-2025 Emergency department patient visit Dr. Mark Leong MD -Emergency Department Work Phone: Start: 04-02-2025 End: 04-02-[address] Octavio Reza MD Work Phone: -Outpatient Breast Imaging Start: 04-02-2025 End: 04-02-[address] Octavio Reza MD -Outpatient Breast Imaging Work Phone: Start: 04-02-2025 End: 04-02-2025 ambulatory Octavio Reza Facility:[facility] Start: 03-29-2025 End: 03-29-2025 Telephone encounter Arleen Milan APRN.CNP Work Phone: [facility] Comment on above: Results Start: 03-26-2025 End: 03-26-2025 ambulatory OCTAVIO Zapata SONIAGILBERT Facility:[facility] Start: 03-25-2025 End: 03-25-2025 Nutrition therapy Sergo Perez RD Work Phone: Endocrinology Comment on above: Medical Nutrition [place] (Type 1 Diabetes) Start: 03-25-2025 End: 03-25-[address] Work Phone: Endocrinology Start: 03-22-2025 End: 03-22-2025 Telephone encounter Octavio Reza MD Work Phone: [facility] Comment on above: Results Start: 03-19-2025 End: 03-19-2025 Office outpatient visit 25 minutes Arleen Milan APRN.TITLE CURATIVE SPECIALIST Work Phone: [facility] Comment on above: Facial flushing (Sangeeta rosette Dx); Essential (primary) hypertension Start: 03-19-2025 End: 03-19-2025 ambulatory OCTAVIO REZA Facility:[facility] Start: 03-14-2025 End: 03-14-2025 ambulatory Octavio Reza MD Work Phone: [facility] Comment on above: Constipation Start: 03-12-2025 End: 03-13-2025 Telephone encounter Octavio Reza MD Work Phone: [facility] Comment on above: Orders Start: 03-07-2025 End: 03-07-2025 ambulatory Octavio Reza MD Work Phone: [facility] Start: 03-07-2025 End: 03-07-2025 Patient encounter procedure Octavio Reza MD Work Phone: [facility] Comment on above: Population Health Na vigation Outreach ([employer] [facility] Start: 02-28-2025 End: 02-28-2025 Telephone encounter Renetta Mcgee APRN.TITLE CURATIVE SPECIALIST Work Phone: Endocrinology Comment on above: Patient Question; Me dication Problem Start: 02-25-2025 End: 02-25-2025 ambulatory OCTAVIO REZA Facility:[facility] Start: 02-25-2025 End: 02-25-2025 Patient encounter procedure Charis Lucas formerly [facility] Work Phone: [facility] Comment on above: Type I diabetes chrissy itus with manifestations (HCC) (Primary Dx) Start: 02-25-2025 End: 02-25-2025 Telemedicine consultation with patient Charis Saxenaclau formerly [facility] Work Phone: [facility] Start: 02-06-2025 End: 02-06-2025 Patient encounter procedure Renetta Mcgee APRN.TITLE CURATIVE SPECIALIST Work Phone: Endocrinology Comment on above: Diabetes mellitus ty pe 1, controlled, without complications (HCC) (Primary Dx); Type I diabetes mellitus with manifestations (HCC); Charcot foot due to diabetes mellitus Start: 02-06-2025 End: 02-06-2025 [facility] Start: 01-30-2025 End: 01-30-2025 Telephone encounter Renetta Mcgee APRN.TITLE CURATIVE SPECIALIST Work Phone: Endocrinology Comment on above: Patient Question Start: 01-29-2025 End: 01-29-2025 Patient encounter procedure Davon Wolfe APRN.CNP Work Phone: [facility] Comment on above: Type 1 diabetes chrissy itus with hyperglycemia (HCC) (Primary Dx); Anxiety; Slow transit constipation; Essential (primary) hypertension; Gastroesophageal reflux disease without esophagitis; Class 3 severe obesity due to excess calories with body mass index (BMI) of 40.0 to 44.9 in adult, unspecified whether serious comorbidity present (HCC) Start: 01-29-2025 End: 01-29-2025 [facility] Start: 01-25-2025 End: 01-25-2025 Emergency department patient visit Dr. Octavio Reza MD Work Phone: -Emergency Department Work Phone: Start: 01-15-2025 End: 01-15-2025 ambulatory [facility] Start: 01-15-2025 End: 01-15-2025 Patient encounter procedure Octavio Reza MD Work Phone: [facility] Comment on above: Medicare annual well ness [...] 01-14-2025 End: 01-14-2025 Patient encounter procedure [facility] Work Phone: Start: 01-14-2025 End: 01-14-2025 Jae RASHIDC -[facility] Work Phone: Start: 01-14-2025 End: 01-14-[address] Octavio Reza MD Work Phone: -[facility] Start: 01-08-2025 End: 01-08-2025 ambulatory OCTAVIO REZA Facility:[facility] Start: 01-04-2025 End: 01-04-2025 Dr. Zay [...] Start: 12-18-2024 End: 12-18-2024 ambulatory OCTAVIO REZA Facility:[facility] Start: 12-18-2024 End: 12-18-2024 Patient encounter procedure Charis Lucas formerly [facility] Work Phone: [facility] Comment on above: Type I diabetes chrissy itus with manifestations (HCC) (Primary Dx); 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) Start: 12-18-2024 End: 12-18-2024 Telemedicine consultation with patient Charis Lance formerly [facility] Work Phone: [facility] Start: 12-14-2024 [...] End: 11-15-2024 Patient encounter procedure Areli LOWRY [facility] Work Phone: Start: 11-15-2024 End: 11-15-2024 Areli LOWRY -[facility] Work Phone: Start: 11-15-2024 End: 11-15-2024 ambulatory Octavio Reza Facility:[facility] Start: 11-07-2024 End: 11-07-2024 ambulatory Eliza Gilliland RN Work Phone: [facility] Comment on above: Primary Care Coordin ator- Other (CDM chart review) Start: 11-06-2024 End: 11-06-2024 ambulatory OCTAVIO REZA Facility:[facility] Start: 11-06-2024 End: 11-06-2024 Patient encounter procedure Charis Lucas formerly [facility] Work Phone: [facility] Comment on above: Type I diabetes chrissy itus with manifestations (HCC) (Primary Dx) Start: 11-06-2024 End: 11-06-2024 Telemedicine consultation with patient Charis Lance formerly [facility] Work Phone: [facility] Start: 11-03-2024 End: 11-03-2024 Dr. Zay Juan DO -Emergency Departme nt Work Phone: Start: 11-03-2024 End: 11-03-2024 Emergency department patient visit Dr. Octavio Reza MD Work Phone: -Emergency Department Work Phone: Start: 10-31-2024 End: 10-31-2024 Patient encounter procedure Renetta Mcgee WASTEWATER PL[employer] CIVIL ENGINEER.TITLE CURATIVE SPECIALIST Work Phone: Endocrinology Comment on above: Type I diabetes chrissy itus with manifestations (HCC); Charcot foot due to diabetes mellitus Start: 10-31-2024 End: 10-31-2024 ambulatory OCTAVIO REZA Facility:[facility] Start: 10-29-2024 End: 10-29-2024 Telephone encounter Renetta Mcgee WASTEWATER PLANT CIVIL ENGINEER.TITLE CURATIVE SPECIALIST Work Phone: Endocrinology Comment on above: Patient Update (Ongo ing high blood sugars) Start: 10-24-2024 End: 10-24-2024 Dr. Benjamín Davila -Emergency Departmen t Work Phone: Start: 10-24-2024 End: 10-24-2024 Emergency department patient visit Dr. Octavio Reza MD Work Phone: -Emergency Department Work Phone: Start: 10-19-2024 End: 10-22-2024 ambulatory Octavio Reza MD Work Phone: [facility] Comment on above: High Blood Sugar; le ft leg pain Start: 10-19-2024 End: 10-22-2024 Telephone encounter Renetta Mcgee WASTEW[employer] PLANT CIVIL ENGINEER.TITLE CURATIVE SPECIALIST Work Phone: Endocrinology Comment on above: Patient Question; Re questing a call back from nurse; Returning Patient's Call Start: 10-19-2024 End: 10-19-2024 Dr. Holland Sanches DO -Emergency Departme nt Work Phone: Start: 10-19-2024 End: 10-19-2024 Emergency department patient visit Dr. 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) (Primary Dx); Primary insomnia; Anxiety state; Vitamin D deficiency; Constipation, unspecified constipation type; Psoriasis of scalp; Seborrheic dermatitis Start: 10-04-2024 End: 10-04-2024 Telephone encounter Lydia Grande APRN.CNS Work Phone: [facility] Comment on above: Constipation Start: 10-01-2024 End: 10-01-2024 ambulatory OCTAVIO REZA Facility:[facility] Start: 09-27-2024 End: 10-01-2024 Telephone encounter Octavio Reza MD Work Phone: [facility] Comment on above: Patient Question Start: 09-26-2024 End: 09-26-2024 ambulatory OCTAVIO REZA Facility:[facility] Start: 09-26-2024 End: 09-26-2024 Office outpatient visit 25 minutes Octavio Reza MD Work Phone: [facility] Comment on above: Acute diarrhea (Prim nancy Dx); 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 Work [facility]: Start: 09-23-2024 End: 09-23-2024 Emergency department patient visit Dr. Octavio Reza MD Work Phone: -Emergency Department Work Phone: Start: 09-23-2024 End: 09-23-2024 ambulatory Susana Fuentes RN NURSE INSTRUMENTATION ENGINEERING TECHNICIAN Start: 09-23-2024 End: 09-23-2024 Patient encounter procedure Susana Fuentes RN NURSE INSTRUMENTATION ENGINEERING TECHNICIAN Comment on above: Clinical Update Start: 09-21-2024 End: 09-21-2024 ambulatory Tere Mcgrath RN NURSE INSTRUMENTATION ENGINEERING TECHNICIAN Comment on above: High Blood Sugar Start: 09-21-2024 End: 09-21-2024 Telephone encounter Octavio Reza MD Work Phone: Internal Medicine [place] Comment on above: Patient Update Start: 09-21-2024 [...] End: 09-13-2024 ambulatory Tierney Sun RN NURSE INSTRUMENTATION ENGINEERING TECHNICIAN Start: 09-13-2024 End: 09-13-2024 Patient encounter procedure Tierney Sun RN NURSE INSTRUMENTATION ENGINEERING TECHNICIAN Comment on above: Clinical Update Start: 09-10-2024 End: 09-11-2024 Telephone encounter Charis Lucas formerly [facility] Work Phone: [facility] Comment on above: Patient Update Start: 09-10-2024 End: 09-10-2024 ambulatory OCTAVIO REZA Facility:[facility] Start: 09-10-2024 End: 09-10-2024 Patient encounter procedure Charis Lucas formerly [facility] Work Phone: [facility] Comment on above: Type I diabetes chrissy itus with manifestations (HCC) (Primary Dx) Start: 09-10-2024 End: 09-10-2024 Telemedicine consultation with patient Charis Sandersdruniranjan formerly [facility] Work Phone: [facility] Start: 09-06-2024 End: 09-06-2024 Telephone encounter Octavio Reza MD Work Phone: [facility] [place] Comment on above: Patient Question Start: 09-04-2024 End: 09-05-2024 Telephone encounter Renetta Mcgee [employer]EWATER [employer] CIVIL ENGINEER.TITLE CURATIVE SPECIALIST Work Phone: Endocrinology Comment on above: Results Start: 08-20-2024 End: 08-20-2024 ambulatory OCTAVIO REZA Facility:[facility] Start: 08-17-2024 End: 08-17-2024 ambulatory Phoebe Carrion MA [facility] Start: 08-17-2024 End: 08-17-2024 Patient encounter procedure Phoebe Carrion MA [facility] [place] Comment on above: Population Health Na vigation Outreach ([employer] High Risk - Attempt 1) Start: 08-09-2024 End: 08-09-2024 ambulatory Octavio Reza MD Work Phone: Internal Medicine [place] Comment on above: Constipation Start: 08-08-2024 End: 09-25-2024 Telephone encounter Octavio Reza MD Work Phone: [facility] [place] Comment on above: Blood sugar test str ips PA Start: 08-01-2024 End: 08-01-2024 Telephone encounter cOtavio Reza MD Work Phone: [facility] [place] Comment on above: Patient Question Start: 07-31-2024 End: 07-31-2024 ambulatory OCTAVIO REZA Facility:[facility] Start: 07-31-2024 End: 07-31-2024 Patient encounter procedure Charis Lucas formerly [facility] Work Phone: [facility] Comment on above: Type I diabetes chrissy itus with manifestations (HCC) (Primary Dx) Start: 07-31-2024 End: 07-31-2024 Telemedicine consultation with patient Charis Lucas formerly [facility] Work Phone: [facility] Start: 07-28-2024 End: 07-28-2024 Emergency department patient visit Dr. Lars Dahl DO -Emergency Department Work Phone: Start: 07-27-2024 End: 07-27-2024 Refill Octavio Reza MD Work Phone: Internal Medicine [place] Comment on above: Refill Request Start: 07-19-2024 End: 07-19-2024 Telephone encounter Octavio Reza MD Work Phone: Internal [facility] [place] Comment on above: Patient Question Start: 07-16-2024 End: 07-16-2024 Telephone encounter Octavio Reza MD Work Phone: Family Medicine [place] Comment on above: Rx Refills Start: 07-03-2024 End: 07-03-2024 ambulatory OCTAVIO REZA Facility:[facility] Start: 07-03-2024 End: 07-03-2024 Office outpatient visit 25 minutes Lydia Grande JIA Work Phone: Internal Medicine [place] Comment on above: Essential hypertensi on (Primary Dx); 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 Eduardo Paz DO -Emergency Department Work Phone: Start: 06-29-2024 End: 07-02-2024 Telephone encounter Octavio Reza MD Work Phone: Internal Medicine [place] Comment on above: Patient Update Start: 06-28-2024 End: 06-28-2024 ambulatory OCTAVIO REZA Facility:[facility] Start: 06-26-2024 End: 06-28-2024 Telephone encounter Octavio Reza MD Work Phone: Internal Medicine [place] Comment on above: Patient Update Start: 06-21-2024 End: 06-21-2024 ambulatory Rama Mckeon MA [facility] Start: 06-21-2024 End: 06-21-2024 Patient encounter procedure Rama Mckeon [facility] Comment on above: Population Health Na vigation Outreach (AWV INITIATIVE) Start: 06-19-2024 End: 06-19-2024 ambulatory OCTAVIO D SONIAAMPAS Facility:[facility] Start: 06-19-2024 End: 06-20-2024 Patient encounter procedure Charis Lucas formerly [facility] Work Phone: Pharm [facility] Comment on above: Type I diabetes chrissy itus with manifestations (HCC) (Primary Dx) Refill Request Start: 06-19-2024 End: 06-19-2024 Telemedicine consultation with patient Charis Lucas formerly [facility] Work Phone: [facility] Start: 06-13-2024 End: 06-13-[address] Miguel Angel Bosch MD -[place] [facility] Work Phone: Start: 06-13-2024 End: 06-13-2024 ambulatory Octavio Jodi Scottampbeka Facility:[facility] [place] Start: 06-11-2024 End: 06-11-2024 ambulatory OCTAVIO D SONIAAMPAS Facility:[facility] Start: 06-11-2024 End: 06-11-2024 Office outpatient visit 25 minutes Octavio Reza MD Work Phone: Internal Medicine [place] Comment on above: Type I diabetes chrissy [...] Non-patient / Non-visit Dr. Ray up MD -[facility] Start: 06-07-2024 ambulatory Octavio Reza Facilit y:[facility] Start: 06-07-2024 Non-patient / Non-visit Dr. Che Bosch MD -[facility] [place] [facility] Work Phone: Start: 06-07-2024 ambulatory Octavio Reza Facilit y:[facility] Start: 06-07-2024 End: 06-07-2024 Patient encounter procedure Areli Estevez PA -Cardiovascular Services Work Phone: Start: 06-06-2024 End: 06-07-2024 ambulatory Federica Alonzo RN Work Phone: [facility] [employer] Comment on above: Bi-weekly outreach ( Recurring) for Chronic Disease Management Start: 05-31-2024 End: 06-01-2024 Telephone encounter Octavio Reza MD Work Phone: Internal Medicine [place] Comment on above: checking if lab work due Start: 05-27-2024 End: 05-27-2024 Emergency department patient visit Dr. Lars Dahl DO -Emergency Department Work Phone: Start: 05-25-2024 End: 06-27-2024 ambulatory Renetta C Cioce [employer] CIVIL ENGINEER.TITLE CURATIVE SPECIALIST Work Phone: Endocrinology Comment on above: elevated blood gluco se Start: 05-25-2024 End: 05-25-2024 Telephone encounter Renetta C Cioce [employer] CIVIL ENGINEER.TITLE CURATIVE SPECIALIST Work Phone: Endocrinology Comment on above: Patient Update Start: 05-25-2024 End: 05-25-2024 Emergency department patient visit Dr. Reyna Monzon DO -Emergency Department Work Phone: Start: 05-23-2024 End: 05-23-2024 Patient encounter procedure Renetta C Cioce [employer] CIVIL ENGINEER.TITLE CURATIVE SPECIALIST Work Phone: Endocrinology Comment on above: Diabetes mellitus ty pe 1, controlled, without complications (HCC) (Primary Dx) Start: 05-22-2024 End: 05-22-2024 ambulatory Federica Alonzo RN Work Phone: [facility] Comment on above: Bi-weekly outreach ( Recurring) for Chronic Disease Management Start: 05-10-2024 End: 05-11-2024 Telephone encounter Renettacarter Mcgee [employer] CIVIL ENGINEER.TITLE CURATIVE SPECIALIST Work Phone: Endocrinology Comment on above: Patient Update Start: 05-07-2024 End: 05-07-2024 Patient encounter procedure Davon Sotomayorr [employer] CIVIL ENGINEER.TITLE CURATIVE SPECIALIST Work Phone: Internal Medicine [place] Comment on above: Dental abscess (Prim nancy Dx); 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); PAC (premature atrial contraction); PVC (premature ventricular contraction) Start: 04-24-2024 End: 04-24-2024 Patient encounter procedure Charis Brantleyo formerly [facility] Work Phone: [facility] Comment on above: Type I diabetes chrissy itus with manifestations (HCC) (Primary Dx); Diabetes mellitus type 1, controlled, without complications (HCC) Start: 04-24-2024 End: 04-24-2024 Telemedicine consultation with patient Charis Lucas formerly [facility] Work Phone: [facility] Start: 04-19-2024 End: 04-19-2024 ambulatory Federica Alonzo RN Work Phone: [facility] Comment on above: Bi-weekly outreach ( Recurring) for Chronic Disease Management Start: 04-18-2024 End: 04-18-2024 Subsequent hospital visit by physician Xr [facility] [place] Work Phone: Radiology Comment on above: Acute cough [R05.1] Start: 04-18-2024 End: 04-18-2024 Patient encounter procedure Smiley Banda [employer]IVIL ENGINEER.TITLE CURATIVE SPECIALIST Work Phone: [facility] Comment on above: Acute cough (Primary Dx); URI, acute Start: 04-10-2024 End: 04-10-2024 Patient encounter procedure Charis Sanderssio formerly [facility] Work Phone: [facility] Comment on above: Type I diabetes chrissy itus with manifestations (HCC) (Primary Dx) Start: 04-10-2024 End: 04-10-2024 Telemedicine consultation with patient Charis Brantleyo formerly [facility] Work Phone: [facility] Start: 04-09-2024 End: 04-09-2024 Orders Only Renetta Mcgee [employer] CIVIL ENGINEER.TITLE CURATIVE SPECIALIST Work Phone: Endocrinology Comment on above: Medical Nutrition John olson (Type 1 Diabetes) Start: 04-04-2024 End: 04-04-2024 ambulatory Federica Alonzo RN Work Phone: [facility] [employer] Comment on above: Initial enrollment o ry for Chronic Disease Management Start: 03-30-2024 End: 03-30-2024 ambulatory Pulm Lab [facility] Work Phone: PULM LAB [facility] Comment on above: Spirometry Start: 03-30-2024 End: 03-30-2024 Patient encounter procedure [facility] Work Phone: [facility]UL[facility] LAB [facility] Comment on above: Moderate persistent asthma without complication (Primary Dx); Morbid obesity (HCC); THAIS (obstructive sleep apnea) Start: 03-23-2024 End: 03-23-2024 Refill Octavio Reza MD Work Phone: Internal Medicine [place] Comment on above: Refill Request Start: 03-22-2024 End: 03-22-2024 Telephone encounter Sergo Perez RD Work Phone: Endocrinology Start: 03-15-2024 End: 03-15-2024 Telephone encounter Radha Haynes APRN.TITLE CURATIVE SPECIALIST Work Phone: Pulmonary Medicine Comment on above: Symbicort needs auth orized Start: 03-14-2024 End: 03-14-2024 ambulatory Lydia Manuel RN Work Phone: [facility] [employer] [facility] Start: 03-12-2024 End: 03-12-2024 Telephone encounter Octavio Reza MD Work Phone: Internal [facility] [place] Comment on above: Medication Problem Start: 03-07-2024 End: 03-07-2024 Telephone encounter Christine Bianchi MD Work Phone: Pulmonary Medicine Comment on above: Patient Update Start: 03-07-2024 End: 03-07-2024 Office outpatient visit 25 minutes Radha Haynes WASTEWATER [employer] CIVIL ENGINEER.TITLE CURATIVE SPECIALIST Work Phone: Pulmonary Medicine Comment on above: Mild persistent asth ma without complication (Primary Dx); Shortness of breath Start: 03-06-2024 End: 03-07-2024 Telephone encounter Octavio Reza MD Work Phone: Family Medicine [place] Comment on above: Medication Problem Start: 03-05-2024 End: 03-05-2024 Telephone encounter Octavio Reza MD Work Phone: Internal Medicine [place] Comment on above: Orders Start: 02-28-2024 End: 02-28-2024 Patient encounter procedure Charis Lucas formerly [facility] Work Phone: [facility] Comment on above: Type I diabetes chrissy itus with manifestations (HCC) (Primary Dx) Start: 02-28-2024 End: 02-28-2024 Telemedicine consultation with patient Charis Lucas formerly [facility] Work Phone: [facility] Start: 02-20-2024 Telephone encounter Octavio carr MD Work Phone: Internal Medicine [place] Comment on above: Medication Problem Start: 02-15-2024 End: 02-15-2024 Patient encounter procedure Renetta Mcgee [employer] CIVIL ENGINEER.TITLE CURATIVE SPECIALIST Work Phone: Endocrinology Comment on above: Diabetes mellitus ty pe 1, controlled, without complications (HCC) (Primary Dx) Start: 02-13-2024 End: 02-13-2024 Office outpatient visit 40 minutes Octavio Reza MD Work Phone: Internal Medicine [place] Comment on above: Type I diabetes chrissy [...] End: 01-12-2024 Patient encounter procedure Charis Lucas formerly [facility] Work Phone: [facility] Comment on above: Type I diabetes chrissy itus with manifestations (HCC) (Primary Dx) Start: 01-12-2024 End: 01-12-2024 Telemedicine consultation with patient Charis Lucas formerly [facility] Work Phone: [facility] Start: 01-02-2024 End: 01-02-2024 Patient encounter procedure Tamika Morris MD Work Phone: [facility] [place] [facility] Comment on above: Localized swelling, mass and lump, neck (Primary Dx); Cutaneous horn Start: 12-26-2023 Telephone encounter Octavio carr MD Work Phone: Internal Medicine [place] Comment on above: Patient Update and q uestion Start: 12-09-2023 Telephone encounter Renetta marquez W[employer]EW[employer] CIVIL ENGINEER.TITLE CURATIVE SPECIALIST Work Phone: Endocrinology Comment on above: Patient Question Start: 12-07-2023 Telephone encounter Octavio carr MD Work Phone: Internal Medicine [place] Comment on above: FYI-No Action Needed Start: 12-07-2023 End: 12-07-2023 Patient encounter procedure Renetta Mcgee [employer] CIVIL ENGINEER.TITLE CURATIVE SPECIALIST Work Phone: Endocrinology Comment on above: Diabetes mellitus ty pe 1, controlled, without complications (HCC) (Primary Dx); Type I diabetes mellitus with manifestations (HCC) Start: 12-05-2023 Telephone encounter Octavio carr MD Work Phone: Family Medicine [place] Comment on above: Patient Question Start: 12-02-2023 Telephone encounter Octavio carr MD Work Phone: Internal Medicine [place] Comment on above: Patient Update Start: 11-28-2023 End: 11-29-2023 Emergency department patient [facility] Start: 11-21-2023 Telephone encounter Davon Cleav er W[employer]EWATER PL[employer] CIVIL ENGINEER.TITLE CURATIVE SPECIALIST Work Phone: Internal Medicine [place] Comment on above: Medication Question (side effects from insulin ) Start: 11-11-2023 Telephone encounter Davon Cleav er W[employer]EWATER PL[employer] CIVIL ENGINEER.TITLE CURATIVE SPECIALIST Work Phone: Internal Medicine [place] Comment on above: Patient Update (call ing in BS) Start: 11-09-2023 End: 11-09-2023 Patient encounter procedure Davon Narda [employer] CIVIL ENGINEER.TITLE CURATIVE SPECIALIST Work Phone: Internal Medicine [place] Comment on above: Type I diabetes chrissy itus with manifestations (HCC) (Primary Dx); Encounter for medication management Start: 11-09-2023 Telephone encounter Octavio carr MD Work Phone: Internal Medicine [place] Comment on above: Appointment Start: 11-07-2023 End: 11-07-2023 Emergency department patient visit Dr. Octavio Reza [facility] Start: 11-07-2023 Telephone encounter Octavio carr MD Work Phone: Internal Medicine [place] Comment on above: Patient Question Start: 11-06-2023 End: 11-07-2023 Emergency department patient visit Dr. [facility]avio Reza [facility] Start: 11-04-2023 Telephone encounter Octavio carr MD Work Phone: Internal Medicine [place] Comment on above: Blood sugar readings (Copy of recent BS readings attached to this encounter.) Start: 10-31-2023 ambulatory TAMIKA MORRIS [facility] ty:[facility] Start: 10-31-2023 Telephone encounter Tamika Arshad MD Work Phone: [facility] Comment on above: Results (US negative for DVT) Start: 10-31-2023 End: 10-31-2023 Subsequent hospital visit by physician [facility] Comment on above: Pain and swelling of right lower leg [M79.661, M79.89] Start: 10-31-2023 End: 10-31-2023 Patient encounter procedure Tamika Morris MD Work Phone: [facility] Comment on above: Pain and swelling of right lower leg (Primary Dx) Start: 10-28-2023 End: 10-28-2023 Emergency department patient visit Dr. Octavio Reza [facility] Start: 10-21-2023 Telephone encounter Octavio carr MD Work Phone: Internal Medicine [place] Comment on above: Blood Sugar Reading Start: 10-14-2023 Telephone encounter Octavio carr MD Work Phone: Internal Medicine [place] Comment on above: Blood sugar question Start: 10-03-2023 Telephone encounter Octavio carr MD Work Phone: Family [facility] [place] Comment on above: Medication Question Start: 10-01-2023 End: 10-01-2023 Emergency department patient visit Dr. [facility]avio Reza [facility] Start: 09-29-2023 Telephone encounter Octavio carr MD Work Phone: Internal Medicine [place] Comment on above: Orders Start: 09-29-2023 End: 09-29-[address] Octavio Reza Work Phone: [facility] Work Phone: Start: 09-26-2023 Telephone encounter Octavio carr MD Work Phone: Internal Medicine [place] Comment on above: Insurance Authorizat ion (glucose test strips /) Start: 09-23-2023 Refill Octavio coulter MD Work Phone: Internal Medicine [place] Comment on above: Refill Request Start: 09-22-2023 End: 09-22-2023 Patient encounter procedure Christine Bianchi MD Work Phone: Pulmonary Medicine Comment on above: Mild persistent asth ma without complication (Primary Dx); Morbid obesity (HCC); THAIS (obstructive sleep apnea) Start: 09-21-2023 End: 09-21-2023 Office outpatient visit 25 minutes Octavio Reza MD Work Phone: Internal Medicine [place] Comment on above: PSVT (paroxysmal sup raventricular tachycardia) (HCC) (Primary Dx); PAC (premature atrial contraction); Primary insomnia Start: 09-21-2023 End: 09-21-2023 Emergency department patient visit [facility]Emergency Department Work Phone: Start: 09-16-2023 End: 09-16-2023 Non-patient / Non-visit Dr. Octavio Reza Work Phone: [facility] [facility] Work Phone: Start: 09-16-2023 End: 09-16-2023 ambulatory [facility] Work Phone: Start: 09-16-2023 End: 09-16-2023 Patient encounter procedure [facility]Cardiovascul[facility] Services Work Phone: Start: 09-16-2023 End: 09-16-2023 Emergency department patient visit [facility]Emergency Department Work Phone: Start: 09-05-2023 Telephone encounter Lydia butler WASTEWATER PLANT CIVIL ENGINEER.REAL ESTATE LEGAL SECRETARY Work Phone: Internal Medicine [place] Comment on above: Results Start: 09-01-2023 End: 09-01-2023 Office outpatient visit 25 minutes Lydia Grande APRN.REAL ESTATE LEGAL SECRETARY Work Phone: Internal Medicine [place] Comment on above: Polyarthralgia (Prim nancy Dx); 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); Vitamin D deficiency; Pain in finger of both hands Start: 06-23-2023 End: 06-23-2023 ambulatory Pulm Lab [facility] Work Phone: PULM LAB [facility] Comment on above: Spirometry Start: 06-23-2023 End: 06-23-2023 Office outpatient visit 25 minutes Tierney Nunez PA-C Work Phone: Pulmonary Medicine Comment on above: Severe persistent as thma without complication (Primary Dx); Obesity, Class III, BMI 40-49.9 (morbid obesity) (HCC) Start: 06-23-2023 End: 06-23-2023 Patient encounter procedure Pulm Lab [facility] Work Phone: [facility] Start: 06-14-2023 Refill Octavio coulter MD Work Phone: Internal Medicine [place] Comment on above: Refill Request Start: 05-28-2023 End: 05-28-2023 Emergency department patient visit [facility]Emergency [facility] Work Phone: Start: 05-23-2023 End: 05-23-2023 Office outpatient visit 40 minutes Octavio Reza MD Work Phone: Internal Medicine [place] Comment on above: Type I diabetes chrissy [...] 03-22-[address] Octavio Reza Work Phone: [facility] Work Phone: Start: 03-22-2023 End: 03-22-[address] Octavio Reza Work Phone: [facility]Outpatient Breast Imaging Work Phone: Start: 02-28-2023 Refill Octavio coulter MD Work Phone: Family Medicine [place] Comment on above: Refill Request Start: 02-21-2023 Telephone encounter Octavio carr MD Work Phone: Internal Medicine [place] Comment on above: patient asking for 3 D mamm order fax to [facility] Start: 02-13-2023 End: 02-13-2023 Emergency department patient visit Dr. Octavio Reza Work Phone: [facility]Emergency Department Work Phone: Start: 01-17-2023 End: 01-17-2023 Office outpatient visit 40 minutes Octavio Reza MD Work Phone: Internal Medicine [place] Comment on above: Psoriasis of scalp ( Primary Dx); Seborrheic dermatitis; Essential hypertension; Palpitations; History of delirium Start: 12-07-2022 Non-patient / Non-visit Dr. Ludy Reza Work Phone: [facility] Start: 12-07-2022 End: 12-07-[address] Octavio Reza Work Phone: [facility] Work Phone: Start: 12-07-2022 End: 12-07-[address] Octavio Reza Work Phone: [facility]Cardiov[facility] Start: 11-22-2022 End: 11-22-[address] Octavio Reza Work Phone: [facility] Start: 11-04-2022 End: 11-04-2022 Emergency department patient visit Dr. Octavio Reza Work Phone: [facility]Emergency Department Start: 10-11-2022 End: 10-11-2022 Emergency department patient visit Dr. [facility] Start: 10-05-2022 Telephone encounter Octavio carr MD Work Phone: Internal Medicine [place] Comment on above: Lump on anus Start: 10-05-2022 End: 10-05-2022 Patient encounter procedure Davon Wolfe APRN.TITLE CURATIVE SPECIALIST Work Phone: Internal Medicine [place] Comment on above: Labial abscess (Prim nancy Dx); Bradycardia Start: 10-01-2022 Telephone encounter Octavio carr MD Work Phone: Internal Medicine [place] Comment on above: Patient Question Start: 10-01-2022 End: 10-01-2022 Emergency department patient visit Dr. [facility] Re[facility] Start: 09-30-2022 Telephone encounter Octavio carr MD Work Phone: Internal Medicine [place] Comment on above: Medication Problem Start: 09-27-2022 Telephone encounter Trudy rabago APRN.TITLE CURATIVE SPECIALIST Work Phone: OB/Gynecology Comment on above: Vulvar problem Start: 09-15-2022 Telephone encounter Octavio carr MD Work Phone: Internal Medicine [place] Comment on above: [facility] - [...] Internal Medicine [place] Comment on above: [facility] OT POC Start: 08-17-2022 End: 08-17-2022 Office outpatient visit 40 minutes Octavio Reza MD Work Phone: Internal Medicine [place] Comment on above: Pneumonia due to COV ID-19 virus (Primary Dx); Hypoxemia; 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 Ludy Reza Work Phone: [facility] Phys[facility] Start: 08-01-2022 Non-patient / Non-visit Dr. Ludy Reza Work Phone: [facility] Start: 07-31-2022 End: 08-02-2022 Evaluation and management of inpatient Dr. Octavio Reza Work Phone: [facility]Progressive Care Unit Start: 07-31-[address] Octavio Reza Work Phone: [facility] Work Phone: Start: 2022 Telephone encounter Octavio carr MD Work Phone: Internal Medicine [place] Comment on above: Patient Update Start: 07-29-2022 Telephone encounter Claudia Shoemaker [facility] Comment on above: Social Work Services Occupational Therapy Plan of Care Start: 07-28-2022 Refill Octavio coulter MD Work Phone: [facility] [place] Comment on above: Refill Request Start: 07-26-2022 Telephone encounter Octavio carr MD Work Phone: [facility] [place] Comment on above: Physical Therapy Damari n of Care; FYI-No Action Needed Patient Update; Orde rs Start: 07-23-2022 Non-patient / Non-visit Dr. Ludy Reza Work Phone: [facility] Start: 07-22-2022 Non-patient / Non-visit Dr. Ludy Reza Work Phone: [facility] Start: 07-21-2022 End: 07-21-2022 Non-patient / Non-visit Dr. Octavio Reza Work Phone: [facility] Start: 07-21-2022 Non-patient / Non-visit Dr. Ludy Reza Work Phone: [facility] Start: 07-20-2022 Non-patient / Non-visit Dr. Ludy Reza Work Phone: [facility] Start: 07-19-2022 Non-patient / Non-visit Dr. Ludy Reza Work Phone: [facility] Start: 07-18-2022 Non-patient / Non-visit Dr. Ludy Reza Work Phone: [facility] Start: 07-18-2022 End: 07-24-2022 Evaluation and management of inpatient Dr. Octavio Reza Work Phone: [facility] Start: 07-16-2022 ambulatory Daina Kaye RN NURSE O N CALL Comment on above: High Blood Sugar Start: 07-16-2022 Telephone encounter Octavio carr MD Work Phone: [facility] [place] Comment on above: Oxygen concern Start: 07-14-2022 Non-patient / Non-visit Dr. Ludy Reza Work Phone: [facility] Start: 07-13-2022 Non-patient / Non-visit Dr. Ludy Reza Work Phone: [facility] Start: 07-12-2022 Non-patient / Non-visit Dr. Ludy Reza Work Phone: [facility] Start: 07-11-2022 Non-patient / Non-visit Dr. Ludy Reza Work Phone: [facility] Start: 07-10-2022 Non-patient / Non-visit Dr. Ludy Reza Work Phone: [facility] Start: 07-10-2022 End: 07-14-2022 Evaluation and management of inpatient [facility] Start: 06-22-2022 End: 06-22-[address] Octavio Reza Work Phone: [facility] Start: 06-21-2022 Refill Octavio coulter MD Work Phone: [facility] [place] Comment on above: Refill Request Start: 06-07-2022 ambulatory Narendra lombardo formerly [facility] Work Phone: [facility] Start: 06-07-2022 Telephone encounter Octavio carr MD Work Phone: [facility] [place] Comment on above: Patient Question Start: 05-18-2022 End: 05-18-2022 Office outpatient visit 25 minutes Octavio Reza MD Work Phone: [facility] [place] Comment on above: Type I diabetes chrissy itus with manifestations (HCC) (Primary Dx); Vitamin D deficiency; Mixed hyperlipidemia; Insomnia, unspecified type; Stasis edema of both lower extremities; Morbid obesity with BMI of 45.0-49.9, adult (HCC); Encounter for long-term current use of medication; Encounter for immunization Start: 05-14-2022 Telephone encounter Octavio carr MD Work Phone: [facility] [place] Comment on above: Lab Orders Start: 04-03-2022 ambulatory Latrell Medina RN NURS E INSTRUMENTATION ENGINEERING TECHNICIAN Comment on above: Medication Question Start: 04-03-2022 Telephone encounter Octavio carr MD Work Phone: [facility] [place] Comment on above: Medication Problem Start: 03-31-2022 Refill Octavio coulter MD Work Phone: [facility] [place] Comment on above: Refill Request; Medi cation Problem Start: 03-10-2022 End: 03-10-[address] Octavio Reza Work Phone: [facility] Work Phone: Start: 03-10-2022 End: 03-10-[address] Octavio Reza Work Phone: [facility] Start: 02-15-2022 End: 02-15-2022 Patient encounter procedure Lydia Grande APRN.CNS Work Phone: [facility] [place] Comment on above: Palpitations (Primar y Dx); Encounter for immunization Start: 02-11-2022 End: 02-11-2022 Emergency department patient visit Dr. Octavio Reza Work Phone: [facility] Start: 02-11-2022 Telephone encounter Octavio carr MD Work Phone: [facility] [place] Comment on above: Patient Update Start: 01-20-2022 [...] Guillermo Maurer MD Work Phone: [facility] [place] Comment on above: Pain of upper abdome n (Primary Dx); Alternating constipation and diarrhea Start: 12-21-2021 End: 12-21-[address] Octavio Reza Work Phone: [facility] Start: 12-17-2021 Telephone encounter Octavio carr MD Work Phone: [facility] [place] Comment on above: Patient Question Start: 12-17-2021 End: 12-17-2021 Subsequent hospital visit by physician [facility] Work Phone: Radiology Comment on above: Pain of right upper extremity [M79.601] Start: 12-17-2021 End: 12-17-2021 Patient encounter procedure Wanda Alan CHRISTIAN Work Phone: [facility] Comment on above: Pain of right upper extremity (Primary Dx) Start: 12-16-2021 End: 12-16-2021 Orders Only Christine Bianchi MD Work Phone: Pulmonary Medicine Comment on above: Chest pain, unspecif ied type (Primary Dx) Refill Request Chest pain, unspecif ied type [R07.9] Start: 12-04-2021 Telephone encounter Octavio carr MD Work Phone: [facility] [place] Comment on above: Eye issue Start: 11-06-2021 [...] Octavio carr MD Work Phone: [facility] [place] Comment on above: Follow Up (BP) Start: 10-22-2021 Refill Octavio coulter MD Work Phone: [facility] [place] Comment on above: Refill Request Start: 10-21-2021 Telephone encounter Octavio carr MD Work Phone: [facility] [place] Comment on above: Patient Question Start: 09-22-2021 Telephone encounter Holland avalos MD Work Phone: General Surgery Comment on above: 10-29-2021 Colon [facility] Start: 09-11-2021 End: 09-11-2021 Office outpatient visit 25 minutes Octavio Reza MD Work Phone: [facility] [place] Comment on above: 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 Octavio Reza MD Work Phone: Start: 04-02-2025 Screening mammography Jodi Reza MD Work Phone: Start: 01-04-2025 X-ray of chest, PA a [...] Hemoglobin A1c/Hemoglobin.total in Blood Renetta C Cioce WASTEWATER PLANT CIVIL ENGINEER.TITLE CURATIVE SPECIALIST Work Phone: Start: 04-18-2024 Radiologic exam ches t 2 views Smiley Banda WASTEWATER PLANT CIVIL ENGINEER.TITLE CURATIVE SPECIALIST Work Phone: Start: 03-30-2024 Nitric oxide gas [...] ear/puls e oximetry multiple deter Tierney Shoemaker Mape PAEnteGreatC Work Phone: Start: 06-23-2023 Nitric oxide gas determination Tierney Shoemaker Mape PA-C Work Phone: Start: 05-28-2023 Plain chest [...] Jodi Reza Work Phone: Start: 12-17-2021 Radex roma minimu m 2 views Wanda DejesusNicole WASTEWATER PLANT CIVIL ENGINEER.TITLE CURATIVE SPECIALIST Work Phone: Start: 12-16-2021 Radiologic exam ches [...] mae Work Phone: Urine culture Dr. Octavio ame Work Phone: Viral antigen assay Dr. Octavio Reza Work Phone: Viral antigen assay Dr. Octavio Reza Work Phone: Plan of Treatment Date Care Activity Detail Author Start: 10-29-2026 Colonoscopy [facility] Start: 10-29-2026 COLORECTAL CANCER SCREENING COLORECTAL CANCER SCREENING [facility] Start: 10-29-2026 Screening for malignant neoplasm of colon [facility] Start: 03-19-2026 Annual PCP Team Chronic Disease Visit Annual PCP Team Chronic Disease Visit [facility] Start: 01-29-2026 Annual PCP Team Chronic Disease Visit Annual PCP Team Chronic Disease Visit [facility] Start: 01-21-2026 End: 01-21-2026 Patient encounter procedure 01/21/2026 8:40 AM EDT Office Visit [facility] [place] [address] [place] [id number] Octavio Reza MD [address] [place] [address] Medicare Wellness [facility] [place] Comment on above: Medicare Wellness Start: 01-15-2026 Annual PCP Team Chronic Disease Visit Annual PCP Team Chronic [facility] Start: 01-15-2026 Diabetic foot examination Diabetic Foot Exam [facility] Start: 10-15-2025 Annual PCP Team Chronic Disease Visit Annual PCP Team Chronic Disease Visit [facility] Start: 10-01-2025 Hepatitis B screening Urine Albumin:Creatinine Ratio [facility] Start: 09-26-2025 Annual PCP Team Chronic Disease Visit Annual PCP Team Chronic Disease Visit [facility] Start: 08-20-2025 Hepatitis B screening Urine Albumin:Creatinine Ratio [facility] Start: 08-20-2025 Hepatitis B surface antibody level LDL Cholesterol [facility] Start: 07-24-2025 Glaucoma screening Dilated Retinal Exam [facility] Start: 07-23-2025 End: 07-23-2025 Patient encounter procedure [facility] [place] Comment on above: 4 month f/up 4 month f/up *HCC Cl osure* Start: 07-10-2025 Hemoglobin A1c measurement HbA1C [facility] Start: 06-11-2025 Annual PCP Team Chronic Disease Visit Annual PCP Team Chronic Disease [facility] Start: 06-11-2025 BP Controlled (<130/80) BP Controlled (<130/80) [facility] Start: 05-20-2025 End: 05-20-2025 Patient encounter procedure 05/20/2025 9:00 AM [facility] [address] [phone] [facility] [address] [place] [address] DM f/up [facility] Comment on above: DM f/up Start: 05-08-2025 End: 05-08-2025 Patient encounter procedure 05/08/2025 1:15 PM EDT Office Visit Endocrinology [address] [place] [address] Renetta Mcgee, WASTEWATER PLANT CIVIL ENGINEER.TITLE CURATIVE SPECIALIST [address] [place] [address] 3 month f/u Endocrinology Comment on above: 3 month f/u Start: 05-07-2025 Annual PCP Team Chronic Disease Visit Annual PCP Team [facility] Start: 04-17-2025 RSV Vaccine (1 - 1-dose 75+ series) RSV Vaccine (1 - 1-dose 75+ series) [facility] Comment on above: Postponed from 2020 (Declined at t his time) Start: 04-04-2025 [facility] Start: 03-25-2025 End: 03-25-2025 ambulatory 03/25/2025 10:00 AM EDT Education Endocrinology [address] [place] [address] Sergo Perez, RD [address] [id number] Diabetes mellitus type 1, controlled, without complications (HCC) [E10.9] Endocrinology Comment on above: Diabetes mellitus type 1, controlled, wi thout complications (HCC) [E10.9] Start: 03-18-2025 Influenza vaccination [facility] Start: 02-25-2025 End: 02-25-2025 Patient encounter procedure 02/25/2025 9:00 AM EDT [facility] [address] [phone] Charis Lucas, formerly [facility] [address], [place] [phone] DM f/up [facility] Comment on above: DM f/up Start: 02-17-2025 Hemoglobin A1c measurement HbA1C [facility] Start: 02-12-2025 Annual PCP Team Chronic Disease Visit Annual PCP Team [facility] Start: 02-12-2025 Covid-19 Vaccine ( season) Covid-19 Vaccine ( season) [facility] Comment on above: Postponed from 03/18/2023 (Declined at t his time) Start: 02-06-2025 End: 02-06-2025 Patient encounter procedure 02/06/2025 12:15 PM EDT Office Visit Endocrinology [address] [place] [address] Renetta Mcgee, WASTEWATER PLANT CIVIL ENGINEER.TITLE CURATIVE SPECIALIST [address] [place] [address] 6 MTH F/U Endocrinology Comment on above: 6 MTH F/U Start: 01-26-2025 Hepatitis B surface antibody level LDL Cholesterol [facility] Start: 01-25-2025 [facility] Start: 01-15-2025 End: 01-15-2025 Patient encounter procedure [facility] [place] Comment on above: 4 month follow up Medicare wellness Start: 01-14-2025 Influenza vaccination Influenza Vaccine (#1) Armida benjamin Comment on above: Postponed from 03/18/2024 (Declined at t his time) Start: 01-04-2025 [facility] Start: 01-04-2025 [facility] Start: 12-30-2024 End: 03-31-2025 25-hydroxyvitamin D3 [Mass/volume] in Serum or Plasma VITAMIN D 25 HYDROXY Lab Routine Vitamin D deficiency Expected: 12/30/2024 (Approximate), Expires: 03/31/2025 [facility] Comment on above: Expected: 12/30/2024 (Approximate), Expi res: 03/31/2025 Start: 12-30-2024 End: 03-31-2025 Hemoglobin A1c in Blood HEMOGLOBIN A1C Lab Routine 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) Expected: 12/30/2024 (Approximate), Expires: 03/31/2025 [facility] Work Phone: Comment on above: Expected: 12/30/2024 (Approximate), Expi res: 03/31/2025 Start: 12-26-2024 Glaucoma screening Dilated Retinal Exam [facility] Start: 12-19-2024 [facility] Start: 12-18-2024 End: 12-18-2024 Patient encounter procedure 12/18/2024 9:00 AM EDT [facility] [address] [phone] Charis Lucas, formerly [facility] [address] [place] [address] DM f/up [facility] Comment on above: DM f/up Start: 11-29-2024 [facility] Start: 11-28-2024 End: 11-28-2024 Patient encounter procedure 11/28/2024 9:15 AM EDT Office Visit Endocrinology [address] [place] [address] Renetta Mcgee, WASTEWATER PLANT CIVIL ENGINEER.TITLE CURATIVE SPECIALIST [address] [place] [address] 6 MTH F/U Endocrinology Comment on above: 6 MTH F/U Start: 11-20-2024 Hemoglobin A1c measurement HbA1C [facility] Start: 11-08-2024 Annual PCP Team Chronic Disease Visit Annual PCP Team [facility] Disease [facility] Start: 11-06-2024 End: 11-06-2024 Patient encounter procedure 11/06/2024 9:00 AM EDT [facility] [address] [phone] [facility] [address] [place] [address] DM f/up [facility] Comment on above: DM f/up Start: 11-03-2024 [facility] Start: 10-31-2024 End: 10-31-2024 Patient encounter procedure 10/31/2024 3:15 PM EDT Office Visit Endocrinology [address] [place] [address] Renetta Mcgee WASTEWATER PLANT CIVIL ENGINEER.TITLE CURATIVE SPECIALIST [address] [place] [address] High blood sugars Endocrinology Comment on above: High blood sugars Start: 10-24-2024 [facility] Start: 10-19-2024 [facility] Start: 10-15-2024 End: 10-15-2024 Patient encounter procedure 10/15/2024 1:40 PM EDT Office Visit Internal [facility] [place] [address] [place] [address] Octavio Reza MD [address] [place] [address] 4 month follow up [facility] [place] Comment on above: 4 month follow up Start: 10-01-2024 End: 10-01-2024 ambulatory 10/01/2024 9:00 AM EDT Education Endocrinology [address] [place] [address] Sergo Perez, RD [address] [address] Type I diabetes mellitus with manifestations (HCC) (review 09/13/24 tele enc) Endocrinology Comment on above: Type I diabetes mellitus with manifestat ions (HCC) (review 09/13/24 tele enc) Start: 09-28-2024 End: 09-28-2024 Patient encounter procedure 09/28/2024 2:45 PM EDT Office Visit Pulmonary Medicine [address] [place] [address] Christine Bianchi MD [address] [address] [facility] Comment on above: [place] Start: 09-28-2024 End: 09-28-2024 ambulatory 09/28/2024 2:30 PM EDT Procedure PULM LAB [facility] [address] [place] [address] [facility], Pulm Lab [facility] [address] [place] [address] [place] [facility] Comment on above: [place] Start: 09-26-2024 End: 12-26-2024 CBC panel - Blood by Automated count COMPLETE BLOOD COUNT Lab Routine Type I diabetes mellitus with manifestations (HCC) Anemia, unspecified type Expected: 09/26/2024, Expires: 12/26/2024 [facility] Comment on above: Expected: 09/26/2024, Expires: Start: 09-26-2024 End: 12-26-2024 Comprehensive metabolic 2000 panel - Serum or Plasma COMPREHENSIVE METABOLIC PANEL Lab Routine Type I diabetes mellitus with manifestations (HCC) Anemia, unspecified type Expected: 09/26/2024, Expires: 12/26/2024 [facility] Work Phone: Comment on above: Expected: 09/26/2024, Expires: Start: 09-26-2024 End: 09-26-2024 Patient encounter procedure 09/26/2024 10:00 AM EDT Office Visit [facility] [place] [address] [place] [address] Octavio Reza MD [address] [place] [phone] [facility] ER f/u 09-21-24 diarrhea [facility] [place] Comment on above: [facility] ER f/u 09-21-24 diarrhea Start: 09-21-2024 [facility] Start: 09-20-2024 [facility] Start: 09-20-2024 [facility] Start: 09-20-2024 Annual PCP Team Chronic Disease Visit Annual PCP Team [facility] Start: 09-20-2024 Bacteria identified in Urine by Culture Urine Culture [facility] Start: 09-10-2024 End: 09-10-2024 Patient encounter procedure 09/10/2024 9:00 AM EST [facility] [address] [phone] [facility] [address] [place] [address] DM f/up [facility] Comment on above: DM f/up Start: 09-02-2024 Hepatitis B screening Urine Albumin:Creatinine Ratio [facility] Start: 07-31-2024 End: 07-31-2024 Patient encounter procedure 07/31/2024 9:00 AM EST [facility] [address] [phone] [facility] [address] [place] [address] DM f/up [facility] Comment on above: DM f/up Start: 07-28-2024 [facility] Start: 07-18-2024 Advance Directive Discussion Advance Directive Discussion [facility] Start: 07-18-2024 End: 10-17-2024 Comprehensive metabolic 2000 panel - Serum or Plasma COMPREHENSIVE METABOLIC PANEL Lab Routine Diabetes mellitus type 1, controlled, without complications (HCC) Expected: 07/18/2024, Expires: 10/17/2024 [facility] Work Phone: Comment on above: Expected: 07/18/2024, Expires: Start: 07-18-2024 End: 10-17-2024 Hemoglobin A1c in Blood HEMOGLOBIN A1C Lab Routine Diabetes mellitus type 1, controlled, without complications (HCC) Expected: 07/18/2024, Expires: 10/17/2024 [facility] Comment on above: Expected: 07/18/2024, Expires: Start: 07-18-2024 End: 10-17-2024 LIPID PANEL, NONFASTING LIPID PANEL, NONFASTING Lab Routine Diabetes mellitus type 1, controlled, without complications (HCC) Expected: 07/18/2024, Expires: 10/17/2024 [facility] Comment on above: Expected: 07/18/2024, Expires: Start: 07-18-2024 End: 10-17-2024 Microalbumin/Creatinine [Mass Ratio] in Urine [facility] Comment on above: Expected: 07/18/2024, Expires: Expected: 07/18/2024 (Approximate), Expires: 10/17/2024 Start: 07-03-2024 End: 07-03-2024 Patient encounter procedure 07/03/2024 2:20 PM EST Office Visit [facility] [place] [address] [place] [address] Lydia Grande APRN.REAL ESTATE LEGAL SECRETARY [address] [place] [address] BP check, see 06/29/24 Phone Encounter for details [facility] [place] Comment on above: BP check, see 06/29/24 Phone Encounter f or details Start: 07-03-2024 [facility] Start: 06-29-2024 Glaucoma screening Dilated Retinal Exam [facility] Start: 06-27-2024 End: 09-26-2024 Bacteria identified in Urine by Culture URINE CULTURE Microbiology Routine Acute cystitis without hematuria Expected: 06/27/2024, Expires: 09/26/2024 [facility] Comment on above: Expected: 06/27/2024, Expires: Start: 06-27-2024 End: 09-26-2024 Urinalysis complete panel - Urine URINALYSIS, WITH MICROSCOPIC Lab Routine Acute cystitis without hematuria Expected: 06/27/2024, Expires: 09/26/2024 [facility] Work Phone: Comment on above: Expected: 06/27/2024, Expires: Start: 06-19-2024 End: 06-19-2024 Patient encounter procedure 06/19/2024 9:00 AM EST [facility] [address] [phone] [facility] [address], [place] [phone] DM f/up [facility] Comment on above: DM f/up Start: 06-15-2024 End: 06-15-2024 Patient encounter procedure Neurology Comment on above: THAIS (obstructive sleep apnea) [G47.33] Patient wants appt c anceled- THAIS (obstructive sleep apnea) [G47.33]- referral placeed states pt has not tolerated bipap, wears O2 @ hs, takes ambien, sleep study done at [facility] [place] Start: 06-11-2024 End: 06-11-2024 Patient encounter procedure 06/11/2024 9:00 AM EST Office Visit [facility] [place] [address] [place] [address] Octavio Reza MD [address] [place] [id number] 4 month follow up [facility] [place] Comment on above: 4 month follow up Start: 06-08-2024 [facility] Start: 06-08-2024 Hemoglobin A1c measurement HbA1C [facility] Start: 06-07-2024 End: 06-07-2024 Patient encounter procedure 06/07/2024 11:00 AM EST Office Visit Neurology [address] [place] [address] Rehana Osorio APRN.TITLE CURATIVE SPECIALIST [address] [place] [address] THAIS (obstructive sleep apnea) [G47.33] Neurology Comment on above: THAIS (obstructive sleep apnea) [G47.33] Start: 05-27-2024 [facility] Start: 05-27-2024 [facility] Start: 05-25-2024 [facility] Start: 05-23-2024 Annual PCP Team Chronic Disease Visit Annual PCP Team [facility] Start: 05-23-2024 End: 05-23-2024 Patient encounter procedure 05/23/2024 12:45 PM EST Office Visit Endocrinology [address] [place] [address] Renetta Mcgee APRN.TITLE CURATIVE SPECIALIST [address] [place] [address] 3 mo follow up Endocrinology Comment on above: 3 mo follow up Start: 05-18-2024 End: 08-17-2024 Comprehensive metabolic 2000 panel - Serum or Plasma COMPREHENSIVE METABOLIC PANEL Lab Routine Diabetes mellitus type 1, controlled, without complications (HCC) Expected: 05/18/2024, Expires: 08/17/2024 [facility] Work Phone: Comment on above: Expected: 05/18/2024, Expires: Start: 05-18-2024 End: 08-17-2024 Hemoglobin A1c in Blood HEMOGLOBIN A1C Lab Routine Diabetes mellitus type 1, controlled, without complications (HCC) Expected: 05/18/2024, Expires: 08/17/2024 [facility] Comment on above: Expected: 05/18/2024, Expires: Start: 05-18-2024 End: 08-17-2024 LIPID PANEL, NONFASTING LIPID PANEL, NONFASTING Lab Routine Diabetes mellitus type 1, controlled, without complications (HCC) Expected: 05/18/2024, Expires: 08/17/2024 [facility] Comment on above: Expected: 05/18/2024, Expires: 5 Start: 05-18-2024 End: 08-17-2024 Microalbumin/Creatinine [Mass Ratio] in Urine ALBUMIN/CREATININE RATIO, URINE Lab Routine Diabetes mellitus type 1, controlled, without complications (HCC) Expected: 05/18/2024, Expires: 08/17/2024 [facility] Comment on above: Expected: 05/18/2024, Expires: 5 Start: 05-16-2024 BP Controlled (<130/80) BP Controlled (<130/80) [facility] Start: 05-14-2024 End: 05-14-2024 Patient encounter procedure 05/14/2024 3:20 PM EDT Office Visit Cardiology [address] [place] [phone] Anant Lees MD [address] [facility], [address] [place] [address] 1 year follow up Cardiology Comment on above: 1 year follow up Start: 04-24-2024 End: 04-24-2024 Patient encounter procedure 04/24/2024 9:30 AM EDT [facility] [address] [address] [employer] [facility] [address] [place] [address] DM f/up Pharm [facility] Comment on above: DM f/up Start: 04-10-2024 End: 04-10-2024 Patient encounter procedure 04/10/2024 9:00 AM EDT [facility] [address] [id number] [facility]Charis [facility] [address] [place] [address] DM f/up [facility] Comment on above: DM f/up Start: 04-09-2024 End: 04-09-2024 Follow-up encounter 04/09/2024 10:00 AM EDT Education Endocrinology [address] [place] [address] Sergo Perez, RD [address], [place] [id number] follow up Endocrinology Comment on above: follow up Start: 03-30-2024 End: 03-30-2024 Patient encounter procedure 03/30/2024 2:15 PM EDT Office Visit Pulmonary Medicine [address] [place] [address] Christine Bianchi MD [address] [place] [address] KEZIA / 6 MTH F/U ASTHMA Pulmonary Medicine Comment on above: KEZIA / 6 MTH F/U ASTHMA Start: 03-30-2024 End: 03-30-2024 ambulatory 03/30/2024 2:00 PM EDT Procedure PULM LAB [facility] [address] [place] [address] Wstr, Pulm Lab [facility] [address] [place] [address] KEZIA / 6 MTH F/U ASTHMA PULM LAB [facility] Comment on above: KEZIA / 6 MTH F/U ASTHMA Start: 03-22-2024 End: 03-22-2024 ambulatory 03/22/2024 9:00 AM EDT [facility] Endocrinology [address] [place] [address] Sergo Perez, RD [address], [place] [id number] Diabetes mellitus type 1, controlled, without complications (HCC) [E10.9], pt is acting for a phone call visit Endocrinology Comment on above: Diabetes mellitus type 1, controlled, wi thout complications (HCC) [E10.9], pt is acting for a phone call visit Start: 03-18-2024 Covid-19 Vaccine ( season) [facility] Vacc[facility] Start: 03-18-2024 Covid-19 Vaccine ( season) Covid-19 Vaccine ( season) [facility] Start: 03-18-2024 Influenza vaccination [facility] Start: 03-01-2024 Hemoglobin A1c measurement HbA1C [facility] Start: 02-28-2024 End: 02-28-2024 Patient encounter procedure 02/28/2024 9:00 AM EDT [facility] Pharm Med [facility] [address] [address] Prudenciogamalielniranjan [facility] [address] [place] [address] DM f/up [facility] Comment on above: DM f/up Start: 02-15-2024 End: 02-15-2024 Patient encounter procedure 02/15/2024 2:45 PM EDT Office Visit Endocrinology [address] [place] [address] Renetta Mcgee, [employer].TITLE CURATIVE SPECIALIST [address] [place] [address] 3 mo follow up Endocrinology Comment on above: 3 mo follow up Start: 02-13-2024 End: 02-13-2024 Patient encounter procedure 02/13/2024 9:20 AM EDT Office Visit Internal Medicine [facility] [address] [place] [address] Octavio Reza MD [address] [place] [address] 4 month follow up [facility] Comment on above: 4 month follow up Start: 02-07-2024 End: 02-07-2024 Patient encounter procedure 02/07/2024 9:20 AM EDT Office Visit Internal Medicine [facility] [address] [place] [address] Octavio Reza MD [address] [place] [address] 4 month follow up [facility] Comment on above: 4 month follow up Start: 01-26-2024 End: 04-26-2024 25-hydroxyvitamin D3 [Mass/volume] in Serum or Plasma VITAMIN D 25 HYDROXY Lab Routine Vitamin D deficiency Expected: 01/26/2024, Expires: 04/26/2024 [facility] Comment on above: Expected: 01/26/2024, Expires: Start: 01-26-2024 End: 04-26-2024 CBC W Auto Differential panel - Blood COMPLETE BLOOD COUNT AND DIFFERENTIAL Lab Routine Type I diabetes mellitus with manifestations (HCC) Expected: 01/26/2024, Expires: 04/26/2024 [facility] Comment on above: Expected: 01/26/2024, Expires: Start: 01-26-2024 End: 04-26-2024 Comprehensive metabolic 2000 panel - Serum or Plasma COMPREHENSIVE METABOLIC PANEL Lab Routine Type I diabetes mellitus with manifestations (HCC) Expected: 01/26/2024, Expires: 04/26/2024 [facility] Comment on above: Expected: 01/26/2024, Expires: Start: 01-26-2024 End: 04-26-2024 Lipid 1996 panel - Serum or Plasma LIPID PANEL BASIC Lab Routine Type I diabetes mellitus with manifestations (HCC) Expected: 01/26/2024, Expires: 04/26/2024 [facility] Work Phone: Comment on above: Expected: 01/26/2024, Expires: 4 Start: 01-18-2024 ANNUAL PCP TEAM CHRONIC DISEASE VISIT ANNUAL PCP TEAM CHRONIC DISEASE VISIT [facility] Start: 01-18-2024 BP CONTROLLED (<130/80) BP CONTROLLED (<130/80) [facility] Start: 01-18-2024 COVID-19 VACCINE (#1) COVID-19 VACCINE (#1) [facility] Comment on above: Postponed from 01/27/1946 (Declined at t his time) Start: 01-18-2024 End: 01-18-2024 Nursing evaluation of patient and report 01/18/2024 10:00 AM EDT Nurse Visit Endocrinology [address] [place] [address] Tawanda Wolff, RN [address] [id number] Diabetes mellitus type 1, controlled, without complications (HCC) [E10.9] Endocrinology Comment on above: Diabetes mellitus type 1, controlled, wi thout complications (HCC) [E10.9] Start: 01-12-2024 End: 01-12-2024 Patient encounter procedure 01/12/2024 9:00 AM EDT [facility] [address] [place] [address] Charis Lucas, formerly [facility] [address], [place] [id number] Diabetes mellitus type 1, controlled, without complications (HCC) [E10.9] [facility] Comment on above: Diabetes mellitus type 1, controlled, wi thout complications (HCC) [E10.9] Start: 01-11-2024 End: 01-11-2024 Nursing evaluation of patient and report 01/11/2024 2:00 PM EDT Nurse Visit Endocrinology [address] [place] [address] Tawanda Wolff, RN [address] [id number] Diabetes mellitus type 1, controlled, without complications (HCC) [E10.9] Endocrinology Comment on above: Diabetes mellitus type 1, controlled, wi thout complications (HCC) [E10.9] Start: 12-07-2023 End: 03-07-2024 Glutamate decarboxylase 65 Ab [Units/volume] in Serum [facility] Comment on above: Expected: 12/07/2023, Expires: Start: 12-07-2023 End: 03-07-2024 Hemoglobin A1c in Blood [facility] Comment on above: Expected: 12/07/2023, Expires: 4 Start: 12-07-2023 End: 03-07-2024 Pancreatic islet cell Ab [Titer] in Serum [facility] Comment on above: Expected: 12/07/2023, Expires: Start: 12-07-2023 End: 12-07-2023 Patient encounter procedure 12/07/2023 10:15 AM EDT Office Visit Endocrinology [address] [place] [address] Renetta Mcgee, [employer].TITLE CURATIVE SPECIALIST [address] [place] [address] 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.8] Endocrinology Comment on above: Type I diabetes mellitus with manifestat ions (HCC) [E10.8] Start: 11-28-2023 [facility] Start: 11-15-2023 Hemoglobin A1c measurement HbA1C [facility] Start: 11-15-2023 Hemoglobin A1c/Hemoglobin.total in Blood HbA1C [facility] Start: 11-07-2023 [facility] Start: 11-06-2023 [facility] Start: 10-28-2023 [facility] Start: 10-06-2023 ANNUAL PCP TEAM CHRONIC DISEASE VISIT ANNUAL PCP TEAM CHRONIC DISEASE VISIT [facility] Start: 10-01-2023 [facility] Start: 09-21-2023 End: 12-21-2023 25-hydroxyvitamin D3 [Mass/volume] in Serum or Plasma VITAMIN D 25 HYDROXY Lab Routine Vitamin D deficiency Expected: 09/21/2023 (Approximate), Expires: 12/21/2023 [facility] Work Phone: Comment on above: Expected: 09/21/2023 (Approximate), Expi res: 12/21/2023 Start: 09-21-2023 ANNUAL PCP TEAM CHRONIC DISEASE VISIT ANNUAL PCP TEAM CHRONIC DISEASE VISIT [facility] Start: 09-21-2023 End: 12-21-2023 CBC panel - Blood by Automated count CBC Lab Routine Essential hypertension Expected: 09/21/2023 (Approximate), Expires: 12/21/2023 [facility] Work Phone: Comment on above: Expected: 09/21/2023 (Approximate), Expi res: 12/21/2023 Start: 09-21-2023 End: 12-21-2023 Comprehensive metabolic 2000 panel - Serum or Plasma COMP METABOLIC PANEL Lab Routine Type I diabetes mellitus with manifestations (HCC) Expected: 09/21/2023 (Approximate), Expires: 12/21/2023 [facility] Work Phone: Comment on above: Expected: 09/21/2023 (Approximate), Expi res: 12/21/2023 Start: 09-21-2023 End: 12-21-2023 Hemoglobin A1c in Blood HGB A1C Lab Routine Type I diabetes mellitus with manifestations (HCC) Expected: 09/21/2023 (Approximate), Expires: 12/21/2023 [facility] Work Phone: Comment on above: Expected: 09/21/2023 (Approximate), Expi res: 12/21/2023 Start: 09-21-2023 [facility] Start: 09-21-2023 [facility] Start: 09-16-2023 [facility] Start: 09-16-2023 Emergency department visit moderate severity EMERGENCY DEPT VISIT LOW MDM [facility] Start: 09-14-2023 Hepatitis B surface antibody level LDL CHOLESTEROL [facility] Start: 09-07-2023 ANNUAL PCP TEAM CHRONIC DISEASE VISIT ANNUAL PCP TEAM CHRONIC DISEASE VISIT [facility] Start: 09-01-2023 End: 12-01-2023 25-hydroxyvitamin D3 [Mass/volume] in Serum or Plasma [facility] Work Phone: Comment on above: Expected: 09/01/2023, Expires: 4 Start: 09-01-2023 End: 12-01-2023 ALBUMIN/CREAT RATIO RND UR ALBUMIN/CREAT RATIO RND UR Lab Routine Type I diabetes mellitus with manifestations (HCC) Expected: 09/01/2023, Expires: 12/01/2023 [facility] Work Phone: Comment on above: Expected: 09/01/2023, Expires: 4 Start: 09-01-2023 End: 12-01-2023 DORA BY IFA SCREEN [facility] Work Phone: Comment on above: Expected: 09/01/2023, Expires: Start: 09-01-2023 End: 12-01-2023 C reactive protein [Mass/volume] in Serum or Plasma [facility] Work Phone: Comment on above: Expected: 09/01/2023, Expires: 4 Start: 09-01-2023 End: 12-01-2023 Comprehensive metabolic 2000 panel - Serum or Plasma [facility] Work Phone: Comment on above: Expected: 09/01/2023, Expires: Start: 09-01-2023 End: 12-01-2023 Erythrocyte sedimentation rate [facility] Work Phone: Comment on above: Expected: 09/01/2023, Expires: 4 Start: 09-01-2023 End: 12-01-2023 Hemoglobin A1c in Blood [facility] Work Phone: Comment on above: Expected: 09/01/2023, Expires: 4 Start: 09-01-2023 End: 12-01-2023 Lipid 1996 panel - Serum or Plasma LIPID PANEL BASIC Lab Routine Type I diabetes mellitus with manifestations (HCC) Expected: 09/01/2023, Expires: 12/01/2023 [facility] Work Phone: Comment on above: Expected: 09/01/2023, Expires: 4 Start: 09-01-2023 End: 12-01-2023 Rheumatoid factor [Units/volume] in Serum or Plasma [facility] Work Phone: Comment on above: Expected: 09/01/2023, Expires: 4 Start: 08-17-2023 ANNUAL PCP TEAM CHRONIC DISEASE VISIT ANNUAL PCP TEAM CHRONIC DISEASE VISIT [facility] Start: 08-17-2023 BP CONTROLLED (<130/80) BP CONTROLLED (<130/80) [facility] Start: 07-18-2023 Advance Directive Discussion Advance Directive Discussion [facility] Start: 05-28-2023 [facility] Start: 05-18-2023 ANNUAL PCP TEAM CHRONIC DISEASE VISIT ANNUAL PCP TEAM CHRONIC DISEASE VISIT [facility] Start: 03-18-2023 Covid-19 Vaccine ( season) Covid-19 Vaccine ( season) [facility] Start: 03-18-2023 Influenza vaccination [facility] Start: 03-14-2023 Hemoglobin A1c/Hemoglobin.total in Blood HBA1C [facility] Start: 01-11-2023 ANNUAL PCP TEAM CHRONIC DISEASE VISIT ANNUAL PCP TEAM CHRONIC DISEASE VISIT [facility] Start: 12-24-2022 Hepatitis B screening URINE ALBUMIN:CREATININE RATIO [facility] Start: 12-24-2022 Hepatitis B surface antibody level LDL CHOLESTEROL [facility] Start: 12-23-2022 ANNUAL PCP TEAM CHRONIC DISEASE VISIT ANNUAL PCP TEAM CHRONIC DISEASE VISIT [facility] Start: 11-04-2022 [facility] Start: 10-23-2022 ANNUAL PCP TEAM CHRONIC DISEASE VISIT ANNUAL PCP TEAM CHRONIC DISEASE VISIT [facility] Start: 10-11-2022 [facility] Start: 10-01-2022 Troponin I measurement [facility] Start: 10-01-2022 [facility] Start: 09-15-2022 End: 11-15-2022 25-hydroxyvitamin D3 [Mass/volume] in Serum or Plasma VITAMIN D 25 HYDROXY Lab Routine Vitamin D deficiency Expected: 09/15/2022 (Approximate), Expires: 11/15/2022 [facility] Work Phone: Comment on above: Expected: 09/15/2022 (Approximate), Expi res: 11/15/2022 Start: 09-15-2022 3 comp foot exam completed DIABETIC FOOT EXAM [facility] Comment on above: Postponed from 10/27/2021 (Declined at t his time) Start: 09-15-2022 End: 11-15-2022 Lipid 1996 panel - Serum or Plasma LIPID PANEL BASIC Lab Routine Mixed hyperlipidemia Expected: 09/15/2022 (Approximate), Expires: 11/15/2022 [facility] Work Phone: Comment on above: Expected: 09/15/2022 (Approximate), Expi res: 11/15/2022 Start: 02-25-2023 ANNUAL PCP TEAM CHRONIC DISEASE VISIT ANNUAL PCP TEAM CHRONIC DISEASE VISIT [facility] Start: 08-02-2022 Patient discharge [facility] Start: 08-02-2022 Speech therapy assessment [facility] Start: 08-01-2022 [facility] Start: 08-01-2022 Admission procedure [facility] Start: 08-01-2022 Incentive spirometry [facility] Start: 08-01-2022 Blood chemistry [facility] Work Phone: Start: 08-01-2022 CBC W Auto Differential panel - Blood [facility] Work Phone: Start: 08-01-2022 Inhalation therapy procedure [facility] Start: 07-31-2022 Following clinical pathway protocol [facility] Start: 07-31-2022 Assessment of risk of venous thromboembolism [facility] Start: 07-31-2022 Care regimes management [facility] Start: 07-31-2022 Insertion of catheter into peripheral vein [facility] Start: 07-31-2022 Oxygen therapy [facility] Start: 07-31-2022 Providing care according to standard [facility] Start: 07-31-2022 Provision of activity privileges [facility] Start: 07-31-2022 Referral to occupational therapist [facility] Start: 07-31-2022 Referral to service [facility] Start: 07-31-2022 [facility] Start: 07-31-2022 Verification routine [facility] Work Phone: Start: 07-31-2022 Admission procedure [facility] Start: 07-31-2022 [facility] Start: 07-31-2022 Patient referral to dietitian [facility] Start: 07-25-2022 [facility] Work Phone: Start: 07-24-2022 Patient discharge [facility] Start: 07-23-2022 Referral to service [facility] Start: 07-22-2022 [facility] Start: 07-20-2022 Referral to occupational therapist [facility] Start: 07-20-2022 Referral to service [facility] Start: 07-18-2022 ADVANCE DIRECTIVE DISCUSSION ADVANCE DIRECTIVE DISCUSSION [facility] Start: 07-18-2022 Methicillin resistant Staphylococcus aureus screening test [facility] Start: 07-18-2022 Following clinical pathway protocol [facility] Start: 07-18-2022 Assessment of risk of venous thromboembolism [facility] Start: 07-18-2022 Care regimes management [facility] Start: 07-18-2022 Elevation of head of bed [facility] Start: 07-18-2022 Incentive spirometry [facility] Start: 07-18-2022 Inhalation therapy procedure [facility] Start: 07-18-2022 Insertion of catheter into peripheral vein [facility] Start: 07-18-2022 Notification of physician [facility] Start: 07-18-2022 Oxygen therapy [facility] Start: 07-18-2022 Patient education [facility] Start: 07-18-2022 Physiotherapy of chest [facility] Start: 07-18-2022 Providing care according to standard [facility] Start: 07-18-2022 Provision of activity privileges [facility] Start: 07-18-2022 Referral to service [facility] Start: 07-18-2022 End: 07-18-2022 [facility] Start: 07-18-2022 Admission procedure [facility] Start: 07-18-2022 Dual pressure spontaneous ventilation support [facility] Start: 07-18-2022 Patient referral to dietitian [facility] Start: 07-14-2022 Patient discharge [facility] Start: 07-10-2022 Respiratory secretion precautions [facility] Start: 07-10-2022 Following clinical pathway protocol [facility] Start: 07-10-2022 Ambulation without limitation [facility] Start: 07-10-2022 Assessment of risk of venous thromboembolism [facility] Start: 07-10-2022 Care regimes management [facility] Start: 07-10-2022 Incentive spirometry [facility] Start: 07-10-2022 Insertion of catheter into peripheral vein [facility] Start: 07-10-2022 Oxygen therapy [facility] Start: 07-10-2022 Providing care according to standard [facility] Start: 07-10-2022 Viral nucleic acid assay [facility] Work Phone: Start: 07-10-2022 End: 07-10-2022 [facility] Start: 07-10-2022 Verification routine [facility] Work Phone: Start: 07-10-2022 Admission procedure [facility] Start: 07-10-2022 End: 07-11-2022 [facility] Start: 07-10-2022 Inhalation therapy procedure [facility] Start: 06-25-2022 Hemoglobin A1c/Hemoglobin.total in Blood HBA1C [facility] Start: 05-28-2022 Hepatitis C antibody, confirmatory test DILATED RETINAL EXAM [facility] Start: 05-25-2022 Hepatitis B screening URINE ALBUMIN:CREATININE RATIO [facility] Start: 05-11-2022 BP CONTROLLED (<130/80) BP CONTROLLED (<130/80) [facility] Start: 05-04-2022 Hepatitis B surface antibody level LDL CHOLESTEROL [facility] Start: 03-18-2022 Influenza vaccination INFLUENZA (#1) [facility] Start: 03-09-2022 FECAL OCCULT BLOOD FECAL OCCULT BLOOD [facility] Start: 03-09-2022 Screening for malignant neoplasm of colon Fecal Occult Blood [facility] Start: 03-02-2022 Hemoglobin A1c/Hemoglobin.total in Blood HBA1C [facility] Start: 01-12-2022 COVID-19 VACCINE (#1) COVID-19 VACCINE (#1) [facility] Comment on above: Postponed from 1950 (Declined at t his time) Start: 01-12-2022 COVID-19 VACCINE (1) COVID-19 VACCINE (1) [facility] Comment on above: Postponed from 1950 (Declined at t his time) Start: 01-12-2022 Urine microalbumin profile DTAP,TDAP,TD (1 - Tdap) [facility] Comment on above: Postponed from 1964 (Declined at t his time) Start: 12-24-2021 End: 02-23-2022 Amylase [Enzymatic activity/volume] in Serum or Plasma [facility] Work Phone: Comment on above: Expected: 12/24/2021, Expires: Start: 12-24-2021 End: 02-23-2022 Gamma glutamyl transferase [Enzymatic activity/volume] in Serum or Plasma [facility] Work Phone: Comment on above: Expected: 12/24/2021, Expires: Start: 12-24-2021 End: 02-23-2022 Lipase [Enzymatic activity/volume] in Serum or Plasma [facility] Work Phone: Comment on above: Expected: 12/24/2021, Expires: Start: 12-09-2021 End: 09-11-2022 ALBUMIN/CREAT RATIO RND UR ALBUMIN/CREAT RATIO RND UR Lab Routine Type I diabetes mellitus with manifestations (HCC) Expected: 12/09/2021 (Approximate), Expires: 09/11/2022 [facility] Work Phone: Comment on above: Expected: 12/09/2021 (Approximate), Expi res: 09/11/2022 Start: 12-09-2021 End: 09-11-2022 CBC panel - Blood by Automated count CBC Lab Routine Type I diabetes mellitus with manifestations (HCC) Essential hypertension Expected: 12/09/2021 (Approximate), Expires: 09/11/2022 [facility] Work Phone: Comment on above: Expected: 12/09/2021 (Approximate), Expi res: 09/11/2022 Start: 12-09-2021 End: 09-11-2022 Comprehensive metabolic 2000 panel - Serum or Plasma COMP METABOLIC PANEL Lab Routine Type I diabetes mellitus with manifestations (HCC) Essential hypertension Expected: 12/09/2021 (Approximate), Expires: 09/11/2022 [facility] Work Phone: Comment on above: Expected: 12/09/2021 (Approximate), Expi res: 09/11/2022 Start: 12-09-2021 End: 09-11-2022 Hemoglobin A1c/Hemoglobin.total in Blood HGB A1C Lab Routine Type I diabetes mellitus with manifestations (HCC) Expected: 12/09/2021 (Approximate), Expires: 09/11/2022 [facility] Work Phone: Comment on above: Expected: 12/09/2021 (Approximate), Expi res: 09/11/2022 Start: 12-09-2021 End: 09-11-2022 LIPID PANEL BASIC LIPID PANEL BASIC Lab Routine Type I diabetes mellitus with manifestations (HCC) Mixed hyperlipidemia Expected: 12/09/2021 (Approximate), Expires: 09/11/2022 [facility] Work Phone: Comment on above: Expected: 12/09/2021 (Approximate), Expi res: 09/11/2022 Start: 12-09-2021 End: 09-11-2022 VITAMIN D 25 HYDROXY VITAMIN D 25 HYDROXY Lab Routine Vitamin D deficiency Expected: 12/09/2021 (Approximate), Expires: 09/11/2022 [facility] Work Phone: Comment on above: Expected: 12/09/2021 (Approximate), Expi res: 09/11/2022 Start: 10-27-2021 3 comp foot exam completed DIABETIC FOOT EXAM [facility] Start: 10-27-2021 Diabetic foot examination Diabetic Foot Exam [facility] Start: 07-18-2021 ADVANCE DIRECTIVE DISCUSSION ADVANCE DIRECTIVE DISCUSSION [facility] Start: 2020 RSV Vaccine (1 - 1-dose 75+ series) RSV Vaccine (1 - 1-dose 75+ series) [facility] Start: 11-28-2017 End: 11-28-2017 Appointment [facility] Work Phone: Start: 11-22-2016 End: 11-22-2016 Appointment Appointment [facility] Work Phone: Start: 11-22-2016 End: 11-22-2016 Follow Up Appt 1 year Follow Up Appt 1 year [facility] Work Phone: Start: 11-22-2016 End: 11-22-2016 PFM PFM [facility] Work Phone: Start: 07-21-2015 End: 07-21-2015 Follow Up Appt 1 year Follow Up Appt 1 year [facility] Work Phone: Start: 07-21-2015 End: 07-21-2015 PFM PFM [facility] Work Phone: Start: 01-06-2015 End: 01-06-2015 Follow Up Appt 6 months Follow Up Appt 6 months [facility] Work Phone: Start: 01-06-2015 End: 01-06-2015 PFM PFM [facility] Work Phone: Start: 10-12-2013 End: 10-12-2013 Follow Up Appt 6 months Follow Up Appt 6 months [facility] Work Phone: Start: 10-12-2013 End: 10-12-2013 Follow Up Appt Other Follow Up Appt Other [facility] Work Phone: Start: 10-12-2013 End: 10-12-2013 PFM PFM [facility] Work Phone: Start: 03-23-2013 End: 03-23-2013 Electrocardiogram, complete EKG (In office) [facility] Work Phone: Start: 03-23-2013 End: 03-23-2013 Follow Up Appt 6 months Follow Up Appt 6 months [facility] Work Phone: Start: 03-23-2013 End: 03-23-2013 MMM MMM [facility] Work Phone: Start: 11-15-2012 End: 03-23-2013 Follow Up Appt 1 year Follow Up Appt 1 year [facility] Work Phone: Start: 11-15-2012 End: 03-23-2013 Follow Up Appt Other Follow Up Appt Other [facility] Work Phone: Start: 11-15-2012 End: 03-23-2013 PFM PFM [facility] Work Phone: Start: 03-15-2012 End: 03-15-2012 Electrocardiogram, complete EKG (In office) [facility] Work Phone: Start: 03-15-2012 End: 03-15-2012 Follow Up Appt 6 months Follow Up Appt 6 months [facility] Work Phone: Start: 01-20-2012 End: 01-20-2012 Remote 30 day ecg rev/report 30 Day Holter Monitor [facility] Work Phone: Start: 2005 Hepatitis B Vaccine (1 of 3 - Risk 3-dose series) Hepatitis B Vaccine (1 of 3 - Risk 3-dose series) [facility] Start: 2005 RSV Vaccine (1 - 1-dose 60+ series) RSV Vaccine (1 - 1-dose 60+ series) [facility] Start: 1990 COLOGUARD (FIT-DNA) COLOGUARD (FIT-DNA) [facility] Start: [address] COLONOGRAPHY [facility] Start: 1990 Screening for malignant neoplasm of colon [facility] Start: 1990 SIGMOIDOSCOPY SIGMOIDOSCOPY [facility] Start: 1964 Urine microalbumin profile [facility] Start: 01-27-1946 COVID-19 VACCINE (#1) COVID-19 VACCINE (#1) [facility] Anion gap measurement [facility] Work Phone: Bacteria identified in Sputum by Respiratory culture [facility] Work Phone: Bacteria identified in Sputum by Respiratory culture [facility] Bacteria identified in Urine by Culture Urine Culture [facility] Work Phone: Bacteria identified in Urine by Culture URINE CULTURE Microbiology Routine Acute cystitis without hematuria 06/28/2024 11:42 AM [facility] BUN/Creatinine ratio [facility] Work Phone: Calcium [Mass/volume ] in Serum or Plasma [facility] Work Phone: Carbon dioxide, tota l [Moles/volume] in Serum or Plasma [facility] Work Phone: End: 05-18-2023 CBC panel - Blood by Automated count CBC Lab Routine Encounter for long-term current use of medication Every 4 months for 4 Occurrences starting 05/18/2022 until 05/18/2023 [facility] Work Phone: Comment on above: Every 4 months for 4 Occurrences startin g 05/18/2022 until 05/18/2023 Chloride [Moles/volu me] in Serum or Plasma [facility] Work Phone: End: 05-18-2023 Comprehensive metabolic 2000 panel - Serum or Plasma COMP METABOLIC PANEL Lab Routine Type I diabetes mellitus with manifestations (HCC) Encounter for long-term current use of medication Every 4 months for 4 Occurrences starting 05/18/2022 until 05/18/2023 [facility] Work Phone: Comment on above: Every 4 months for 4 Occurrences startin g 05/18/2022 until 05/18/2023 COVID & INFLUENZA A/ B & RSV PCR, ROUTINE COVID & INFLUENZA A/B & RSV PCR, ROUTINE Microbiology Routine Acute cough URI, acute Ordered: 04/18/[address] [facility] Work Phone: Comment on above: Ordered: 04/18/2024 Creatinine [Moles/volume] in Serum or Plasma [facility] Work Phone: End: 04-04-2025 DBT Breast - bilateral screening [facility] Radiology Routine Screening mammogram for breast cancer 1 Occurrences starting 03/05/2024 until 04/04/2025 [facility] Work Phone: Comment on above: 1 Occurrences starting 03/05/2024 until 04/04/2025 End: 04-11-2026 DBT Breast - bilateral screening [facility] Radiology Routine Screening mammogram for breast cancer 1 Occurrences starting 03/13/2025 until 04/11/2026 [facility] Work Phone: Comment on above: 1 Occurrences starting 03/13/2025 until 04/11/2026 Glucose [Mass/volume ] in Serum or Plasma [facility] Work Phone: Hematocrit [Volume Fraction] of Blood [facility] Work Phone: Hemoglobin [Mass/vol ume] in Blood [facility] Work Phone: End: 05-18-2023 Hemoglobin A1c in Blood HGB A1C Lab Routine Type I diabetes mellitus with manifestations (HCC) Every 4 months for 4 Occurrences starting 05/18/2022 until 05/18/2023 [facility] Work Phone: Comment on above: Every 4 months for 4 Occurrences startin g 05/18/2022 until 05/18/2023 INFLUENZA VACCINE, P RSV FREE, AGE 65+ YR, HIGH DOSE, QUADRIVALENT (FLUZONE HIGH-DOSE) INFLUENZA VACCINE, PRSV FREE, AGE 65+ YR, HIGH DOSE, QUADRIVALENT (FLUZONE HIGH-DOSE) Immunization/Injection Routine Encounter for immunization Ordered: 05/23/2023 [facility] Work Phone: Comment on above: Ordered: 05/23/2023 Leukocytes [#/volume ] in Blood [facility] Work Phone: End: 02-19-2023 [facility] SCRE[facility] Radiology Routine Breast cancer screening by mammogram Dense breasts 1 Occurrences starting 01/21/2022 until 02/19/2023 [facility] Work Phone: Comment on above: 1 Occurrences starting 01/21/2022 until 02/19/2023 End: 03-22-2024 [facility]LLY SCREENING [facility] Radiology Routine Screening mammogram for breast cancer 1 Occurrences starting 02/21/2023 until 03/22/2024 [facility] Work Phone: Comment on above: 1 Occurrences starting 02/21/2023 until 03/22/2024 Mean corpuscular hemoglobin concentration determination [facility] Work Phone: Mean corpuscular hemoglobin determination [facility] Work Phone: Measurement of renal function [facility] Work Phone: Neutrophil count [facility] Work Phone: Neutrophil percent differential count [facility] Work Phone: End: 10-21-2024 NITRIC OXIDE, EXHALED NITRIC OXIDE, EXHALED PFT Routine Mild persistent asthma without complication 1 Occurrences starting 09/22/2023 until 10/21/2024 [facility] Work Phone: Comment on above: 1 Occurrences starting 09/22/2023 until 10/21/2024 End: 04-29-2025 NITRIC OXIDE, EXHALED NITRIC OXIDE, EXHALED PFT Routine Moderate persistent asthma without complication 1 Occurrences starting 03/30/2024 until 04/29/2025 [facility] Work Phone: Comment on above: 1 Occurrences starting 03/30/2024 until 04/29/2025 OXIMETRY - NOCTURNAL OXIMETRY - NOCTURNAL Procedures Routine Severe persistent asthma without complication Ordered: 06/23/2023 [facility] Work Phone: Comment on above: Ordered: 06/23/2023 Patient Education [facility] Work Phone: Patient referral [facility] Work Phone: PFIZER-BIONTECH COVI D-19 VACCINE, AGE 12+ YR (PAIGE TOP) PFIZER-BIONTECH COVID-19 VACCINE, AGE 12+ YR (PAIGE TOP) Immunization/Injection Routine Encounter for immunization Ordered: 02/15/2022 [facility] Work Phone: Comment on above: Ordered: 02/15/2022 Platelets [#/volume] in Blood [facility] Work Phone: Potassium [Moles/vol ume] in Serum or Plasma [facility] Work Phone: Red blood cell count [facility] Work Phone: Red cell distributio n width determination [facility] Work Phone: Respiratory Panel (PCR) Respiratory Panel (PCR) [facility] Work Phone: Respiratory pathogen s DNA and RNA 12b panel - Unspecified specimen by RAYMOND with probe detection [facility] Work Phone: Sodium [Moles/volume ] in Serum or Plasma [facility] Work Phone: SURGICAL PATHOLOGY [facility] Work Phone: Comment on above: Release Upon Ordering for 1 Occurrences starting 10/29/2021, 1 completed Tdap vaccine 7 yrs/> im TDAP VAC CINE AGE 7+ IM Immunization/Injection Routine Encounter for immunization Ordered: 02/15/2022 [facility] Work Phone: Comment on above: Ordered: 02/15/2022 Urea nitrogen [Mass/volume] in Serum or Plasma [facility] Work Phone: Urinalysis complete panel - Urine URINALYSIS, WITH MICROSCOPIC Lab Routine Acute cystitis without hematuria 06/28/2024 11:42 AM EST [facility] Urine culture Urine Culture [facility] Urine culture [facility] Urine culture [facility] End: 01-16-2023 XR HUMERUS 2V AP/LAT RIGHT XR HUMERUS 2V AP/LAT RIGHT Radiology STAT Pain of right upper extremity 1 Occurrences starting 12/17/2021 until 01/16/2023 [facility] Work Phone: Comment on above: 1 Occurrences starting 12/17/2021 until 01/16/2023 [facility] Immunizations Immunization Date Immunization Notes Care Provider [facility] 08-09-2022 tuberculin skin test ; purified protein derivative solution, intradermal Octavio Reza MD Work Phone: [facility] 05-18-2022 Influenza, high dose seasonal Dr. Octavio Reza MD Work Phone: [facility] 05-18-2022 influenza, high dose seasonal, preservative-free Dr. Octavio Reza Work Phone: [facility] 05-18-2022 influenza, high-dose , quadrivalent vaccine [...] Phone: [facility] Work Phone: 04-16-2016 pneumococcal polysaccharide vaccine, [address] Octavio Reza Work Phone: [facility] 04-16-[address] Juliana Reza Work Phone: [facility] Work Phone: 04-16-2016 pneumococcal vaccine , unspecified formulation Dr. Octavio Reza Work Phone: [facility] 03-16-2016 pneumococcal conjuga te vaccine, 13 valent Octavio Reza MD Work Phone: [facility] Work Phone: 05-27-2015 influenza, high dose seasonal, preservative-free Octavio Reza MD Work Phone: [facility] 04-17-[address] Octavio Reza Work Phone: [facility] 06-12-2014 pneumococcal polysaccharide vaccine, 23 valent Octavio Reza MD Work Phone: [facility] 05-23-[address] Octavio Reza Work Phone: [facility] 05-23-2013 influenza virus vaccine, unspecified formulation [...] dose, quadrivalent, PF (FLUZONE HIGH-DOSE) Lydia Grande APRN.[employer]AL [employer]STATE LEGAL SECRETARY Work Phone: [facility] Comment on above: Deferred: Postponed - Verified Patricia Mora LPN NEGATED: Highlighted row has not occurred!02-15-2022 COVID-19 vaccine, age 12+ yr (P[employer]ER[employer]ION[employer] - PAIGE TOP) Lydia Grande APRN.REAL ESTATE LEGAL SECRETARY Work Phone: [facility] Work Phone: NEGATED: Highlighted row has not occurred!02-15-2022 influenza virus vaccine, unspecified formulation Lydia Grande APRN.[employer]STATE LEGAL SECRETARY Work Phone: [facility] Work Phone: NEGATED: Highlighted row has not occurred!02-15-2022 tetanus toxoid, reduced diphtheria toxoid, and acellular pertussis vaccine, adsorbed Lydia Grande APRN.[facility] Work Phone: [facility] Work Phone: Comment on above: Deferred: Postponed Payers Date Payer Category Payer Self-pay [id number] 2021 Medicare AETNA MEDICARE A ETNA MEDICARE PPO [id number] 2021-Present [phone] [address] [place] [address] PP [id number] 2021 Medicare (Managed Care) AETNA [facility] [id number] 2021 Private Health Insurance [id number] 2021 Medicare [id number] 2010 Unknown [id number] 2002 Medicare [id number] Unknown [id number] Unknown [id number] [id number]. 462 Unknown [id number] 2.16.840.1.868328.3.579.2. 462 Unknown [id number] 2.16.840.1.385351.3.579.2. 462 Unknown [id number] 2.16.840.1.160323.3.579.2. 462 Unknown [id number] 2.16.840.1.672230.3.579.2. 462 Unknown [id number] 2.16.840.1.085638.3.579.2. 462 Unknown [id number] 2.16.840.1.644643.3.579.2. 462 Unknown [id number] 2.16.840.1.019965.3.579.2. 462 Unknown [id number] 2.16.840.1.698864.3.579.2. 462 Unknown [id number] 2.16.840.1.207566.3.579.2. 462 Unknown [id number] 2.16.840.1.860293.3.579.2. 462 Unknown [id number] 2.16.840.1.937778.3.579.2. 462 Unknown [id number] 2.16.840.1.376855.3.579.2. 462 Unknown [id number] 2.16.840.1.330589.3.579.2. 462 Unknown [id number] 2.16.840.1.126990.3.579.2. 462 Unknown [id number] 2.16.840.1.570953.3.579.2. 462 Unknown [id number] 2.16.840.1.533233.3.579.2. 462 Unknown [id number] 2.16.840.1.355937.3.579.2. 462 Unknown [id number] 2.16.840.1.917140.3.579.2. 462 Unknown [id number] 2.16.840.1.403684.3.579.2. 462 Unknown [id number] 2.16.840.1.974580.3.579.2. 462 Unknown [id number] 2.16.840.1.524274.3.579.2. 462 Unknown [id number] 2.16.840.1.891346.3.579.2. 462 Unknown [id number] 2.840.1.484124.3.579.2. 462 Social History Date Type Detail Facility Start: 09-07-2022 End: 04-04-2025 Tobacco smoking status NHIS Ex-smoker [facility] Start: 10-21-1978 End: 10-21-1998 History of tobacco use Current smoker [facility] Start: 10-21-1978 End: 10-21-1998 History of tobacco use Cigarette Smoker [facility] Start: 09-30-2021 End: 12-17-2021 Alcohol intake Current drinker of alcohol (finding) [facility] Start: 02-24-2018 History SDOH Alcohol Comment Rarely [facility] Start: 1945 Sex Assigned At Not on file [facility] Start: 09-20-2021 End: 05-18-2022 Exposure to SARS-CoV-2 (event) Not sure [facility] Start: 12-13-2021 End: 12-23-2021 Exposure to SARS-CoV-2 (event) Unable to assess [facility] Work Phone: Start: 02-11-2022 End: 11-28-2023 Tobacco smoking status AZIS Unknown if ever smoked [facility] Start: 04-14-2016 None [facility] Start: 01-19-2019 Spouse/ Signif icant Other [facility] Start: 01-19-2019 Non-smoker [facility] Start: 1945 Sex Assigned At Female [facility] Start: 09-07-2022 End: 01-17-2023 Cigarettes smoked current (pack per day) - Reported 0.5 [facility] Start: 09-07-2022 End: 03-07-2024 Tobacco use and exposure Smokeless tobacco non-user [facility] Work Phone: Start: 01-17-2023 End: 04-04-2024 Tobacco use panel [facility] Start: 06-18-2012 Adult Depression Screening Assessment 2 [facility] Start: 04-04-2024 End: 03-19-2025 Alcoholic beverage intake Ex-drinker (finding) [facility] Has the [place], or water [employer] threatened to shut off services in your home in past 12Mo No [facility] (I/We) worried maryuri er (my/our) food would run out before (I/we) got money to buy more. Never true [facility] Start: 09-20-2024 End: 11-03-2024 Sex Female (finding) [facility] How often to you hav e a drink containing alcohol? Never [facility] Medical Equipment Procedure Code Equipment Code Equipment Origin al Text Equipment Identifier Dates [id number], [id number], [id number], [id number], [id number], [id number] Start: 09-24-2020 End: 02-06-2025 Comment on above: [...] score [AUDIT-C] 0 01/16/20 25 10:00 AM EDT Ritika Santos LPN [facility] 08-02-2022 Functional status Ambulates;Bath room Privilege [facility] Work Phone: 07-24-2022 Functional status Ambulates [facility] Work Phone: 07-14-2022 Functional status Ambulates;Bath room Privilege [facility] Work Phone: 01-12-2021 Are you deaf, or do you have serious difficulty hearing No 01/12/2021 3:44 PM ARICT Octavio Reza MD No [facility] 01-12-2021 Are you blind, or do you have serious difficulty seeing, even when wearing glasses No 01/12/2021 3:44 PM ARICT Octavio Reza MD No [facility] 01-12-2021 Do you have serious difficulty walking or climbing stairs No 01/12/2021 3:44 PM ARICT Octavio Reza MD No [facility] 01-12-2021 Do you have difficul ty dressing or bathing No 01/12/2021 3:44 PM ARICT Octavio Reza MD No [facility] 01-12-2021 Because of a physica l, mental, or emotional condition, do you have difficulty doing errands alone such as visiting a physician's office or shopping No 01/12/2021 3:44 PM Octavio Alejandra MD No [facility] Mental Status Date Assessment Result Facility 04-04-2025 Cognitive function Voice/Name [facility] Work Phone: 01-25-2025 Cognitive function Voice/Name [facility] Work Phone: 01-04-2025 Cognitive function Awake;Alert;Appropriat e [facility] Work Phone: 12-19-2024 Cognitive function Awake;Alert;A ppropriate;Fol lows Commands [facility] Work Phone: 11-29-2024 Cognitive function Awake;Alert;A ppropriate;Fol lows Commands [facility] Work Phone: 09-21-2024 Cognitive function Awake;Appropr iate;Follows Commands;Lethargic [facility] Work Phone: 09-20-2024 Cognitive function Awake;Alert;Appropriat e [facility] Work Phone: 07-02-2024 Cognitive function Voice/Name [facility] Work Phone: 06-08-2024 Cognitive function Level Of Cons ciousness Awake;Alert;Appropriate;Fol lows Commands [facility] Work Phone: 05-27-2024 Cognitive function Voice/Name [facility] Work Phone: 05-25-2024 Cognitive function Level Of Cons ciousness Awake;Alert;Appropriate [facility] Work Phone: 11-28-2023 Cognitive function Level Of Cons ciousness Awake;Alert;Appropriate;Fol lows Commands [facility] Work Phone: 11-07-2023 Cognitive function Level Of Cons ciousness Awake;Alert;Appropriate;Fol lows Commands [facility] Work Phone: 11-06-2023 Cognitive function Voice/Name [facility] Work Phone: 10-28-2023 Cognitive function Level Of Cons ciousness Awake;Alert;Appropriate;Fol lows Commands [facility] Work Phone: 09-21-2023 Cognitive function Level Of Cons ciousness Awake;Alert;Appropriate;Fol lows Commands [facility] Work Phone: 09-16-2023 Cognitive function Level Of Cons ciousness Awake;Alert;Appropriate;Fol lows Commands [facility] Work Phone: 05-28-2023 Cognitive function Voice/Name [facility] Work Phone: 11-04-2022 Cognitive function Voice/Name [facility] Work Phone: 10-11-2022 Cognitive function Awake;Alert;A ppropriate;Fol lows Commands [facility] Work Phone: 10-01-2022 Cognitive function Voice/Name [facility] Work Phone: 08-02-2022 Cognitive function Voice/Name;Touch/Shaki ng [facility] Work Phone: 07-31-2022 Cognitive function Voice/Name [facility] Work Phone: 07-24-2022 Cognitive function Voice/Name [facility] Work Phone: 07-14-2022 Cognitive function Appropriate;Cooperativ e [facility] Work Phone: 07-13-2022 Cognitive function Voice/Name [facility] Work Phone: 07-10-2022 Cognitive function Level Of Cons ciousness Awake;Alert;Appropriate;Fol lows Commands [facility] Work Phone: 02-11-2022 Cognitive function Patient Orien tation Person;Place;Time [facility] Work Phone: 01-12-2021 Because of a physica l, mental, or emotional condition, do you have serious difficulty concentrating, remembering, or making decisions No 01/12/2021 3:44 PM Octavio Alejandra MD No [facility] Clinical Notes 05-11-2021 to 05-29-2025 Note Date & Type Note Facility 05-29-2025 Note [facility] 05-20-2025 Note [facility] 05-20-2025 Note [facility] 05-14-2025 Note [facility] 05-08-2025 Note [facility] 05-06-2025 Note [facility] 05-03-2025 Note [facility] 04-04-2025 Discharge summary [facility] 04-04-2025 Discharge summary Note Date/Time April 04, 2025 10:17pm [facility] Medical Records Department [address] [place] [address] Emergency Department Summary 04/04/25 MR#: [id number] Acct: [id number] Name: ATTILA KIDD Rep #:[id number] : 1945 79 From: Mark Leong MD PCP: Dr. Octavio Reza MD Status:RE G ER Location: ED HPI History of Present Illness Chief Complaint: Palpitations Detail of Chief Complaint: Palpitations while at rest, heart rate on the pulse ox was low 60s upper 50 Informant: patient and spouse/S.O. Onset/Context/Timing Onset: Today and Hours Context: Sudden Onset Timing: Intermittent (1 to 1.5 hours) Quality: Palpitations Location: Mid chest Current Severity: Gone Maximum Severity: Moderate Worsened by: Nothing Relieved by: Nothing Associated Symptoms Associated Symptoms: None Narrative Narrative: Patient is a 79-year-old woman. She has history of hypertension, obstructive sleep apnea, type 2 diabetes, palpitations, asthma, GERD, remote history of DVT,paroxysmal supraventricular tachycardia who presents with palpitations. This occurred at rest. Lasted 1 to 1.5 hours. She had no other associated symptoms. It did not radiate. She denies fever, chills night sweats. She denies upper respiratory tract infectious symptoms. She denies chest pain, pressure, tightness heaviness. Shedenies dyspnea, dyspnea exertion from baseline, orthopnea or PND. She does endorse swelling of her feet which is chronic. She denies nausea, vomiting or diarrhea. Denies abdominal pain. Prior similar symptoms: Yes (Per review of old records) Recent Illness/Hospitalization: No PFSH PFS Medical History [...] mg PO DAILY water pill Unknown History aspirin 81 mg tablet,delayed 81 mg PO BID heart health 01/14/25 Unknown History release insulin glargine 100 unit/mL (3 22 unit subcut QHS Unknown History mL) subcutaneous pen (Lantus Solostar U-100 Insulin) amlodipine 2.5 mg tablet 2.5 mg PO .COMPLEX 02/08/25 Unknown History Allergy/AdvReac Type Severity Reaction Status Date / Time hydromorphone Allergy Severe Anaphylaxis Verified 04/04/25 19:41 tramadol Allergy Severe Anaphylaxis Verified 04/04/25 19:41 amiodarone Allergy Intermediate Swelling Verified 04/04/25 19:41 Staples And Derivatives Allergy Intermediate Hives Verified 04/04/25 19:41 morphine Allergy Intermediate confusion Verified 04/04/25 19:41 moxifloxacin Allergy Intermediate Shortness Verified 04/04/25 19:41 of breath nabumetone Allergy Intermediate damaged Verified 04/04/25 19:41 kidney penicillin G Allergy Intermediate TURNS BLUE Verified 04/04/25 19:41 propoxyphene Allergy Intermediate PT UNSURE Verified 04/04/25 19:41 OF REACTION amlodipine Allergy Mild Abd Verified 04/04/25 19:41 cramps/diarrhea desloratadine Allergy Mild headache Verified 04/04/25 19:41 glutamine (From Airborne Allergy Mild Itching Verified 04/04/25 19:41 (ascorbate sodium)) herbal complex no.124 (From Allergy Mild Itching Verified 04/04/25 19:41 Airborne (ascorbate sodium)) hydrocodone (From Kramer) Allergy Mild dystonia Verified 04/04/25 19:41 lysine HCl (From Airborne Allergy Mild Itching Verified 04/04/25 19:41 (ascorbate sodium)) multivitamin with minerals Allergy Mild Itching Verified 04/04/25 19:41 (From Airborne (ascorbate sodium)) pravastatin Allergy Unknown unknown Verified 04/04/25 19:41 rosuvastatin (From Crestor) Allergy Unknown myalgias Verified 04/04/25 19:41 simvastatin Allergy Unknown unknown Verified 04/04/25 19:41 escitalopram Allergy Other Verified 04/04/25 19:41 hydrochlorothiazide Allergy Other Verified 04/04/25 19:41 oseltamivir (From Tamiflu) AdvReac Severe HALLUCINATI Verified 04/04/25 19:41 ONS Hczmqhj-HYN-OiL Reductase AdvReac Severe myalgias Verified 04/04/25 19:41 Inhibitor (Tqlhjcc-Jjj-Jyq Reductase Inhibitor) amoxicillin (From Augmentin) AdvReac Other Verified 04/04/25 19:41 clavulanic acid (From AdvReac Other Verified 04/04/25 19:41 Augmentin) codeine AdvReac Nausea Verified 04/04/25 19:41 naproxen (From Naprosyn) AdvReac Nausea Verified 04/04/25 19:41 Family History Mother Aortic stenosis Presence of [...] ED Constitutional Constitutional ED: Denies chills, fever(s), subjective or sweats Eyes Eyes: Denies blurry vision, change in vision or diplopia ENT ENT ED: Denies ear pain, rhinorrhea or sore throat Cardiovascular Cardiovascular: Reports palpitations; Denies chest pain or racing heartbeat Respiratory/Chest Respiratory/Chest: Denies cough or dyspnea Gastrointestinal Gastrointestinal: Denies abdominal pain, constipation, diarrhea or melena Musculoskeletal Musculoskeletal: Denies arthralgias, back pain or myalgias Psychiatric Psychiatric: Denies anxiety or depression Endocrine Endocrinology: Denies cold intolerance or heat intolerance Hematologic/Lymphatic Hematologic/Lymphatic: Reports systems reviewed and no addt'l complaints, exceptas documented EXAM Physical Exam Const Vital Signs: 04/04/25 19:35 04/04/25 20:22 04/04/25 20:35 Temperature 97.9 F Temperature Source Oral Pulse Rate 55 L 66 Respiratory Rate 16 14 Respiratory Effort Normal Blood Pressure 156/60 H 136/66 H Blood Pressure Mean 92 89 Pulse Ox 96 98 Oxygen Delivery Method Room Air Room Air 04/04/25 21:00 Temperature Temperature Source Pulse Rate 68 Respiratory Rate 18 Respiratory Effort Blood Pressure 137/58 H Blood Pressure Mean 84 Pulse Ox 95 Oxygen Delivery Method Positive well nourished and well developed Constitutional Narrative: BMI is 41.2. General Appearance ED: well developed, NAD and pallor HEENT Reports moist mucous membranes HEENT Narrative: Head is atraumatic normocephalic. Ears normal Eyes PERRL and EOMs intact bilaterally General Eye ED: Negative for pale conjunctiva or scleral icterus Neck no lymphadenopathy, supple and no JVD Resp normal respiratory effort and clear to auscultation bilaterally Cardio regular rate, regular rhythm, S1 normal heart sound, S2 normal heart sound and no murmurs GI normal to inspection, nondistended, normoactive bowel sounds, non-tender, non-distended and no masses; Negative for hepatosplenomegaly Back/Spine no CVA tenderness Extremity General Extremety ED: Yes edema General Extremity: edema Neuro oriented x3 and CN's II-XII intact bilaterally Sensorium / Orientation: alert Psych mental status grossly normal Skin no rashes or lesions noted, no wounds and skin turgor normal General Skin Exam: pallor; Negative for elasticity normal or jaundice MDM MDM MDM Narrative Medical decision making narrative: Patient presents with palpitations. Heart rate is normal. Will obtain electrolyte panel to assess for hypokalemia. Was placed on a monitor to assess for any ectopy since she has history of dysrhythmia. And EKG was obtained to see if there are any evidence of acute ischemia. Lab Data Attestation: I reviewed the patient's lab results. Lab results narrative: Electrolyte panel is markable for slightly of glucose of 111. Labs: Laboratory Results - last 24 hr 04/04/25 20:27 Sodium 139 Potassium 3.9 Chloride 101 Carbon Dioxide 26.1 Anion Gap 12 BUN 18 Creatinine 0.86 Estim Creat Clear Calc 75.63 Est GFR (MDRD) Non-Af 69 BUN/Creatinine Ratio 21.1 H Glucose 111 H Calcium 9.6 EKG Initial EKG: Attestation: I personally reviewed and interpreted this EKG as follows: Interpretation: Sinus Rhythm (Rate is 64. EKG is normal. Parables under 16 ms. QS duration 86 ms. QT duration 426 ms. [place] is normal.) Treatment and Re-Evaluation :: Patient's questions were answered. She was discharged to home. Discharge Plan Triage Chief Complaint: Palpitations ED Provider: Mark Leong Dx/Rx/DC Orders Clinical Impression: Heart palpitations, Obstructive sleep apnea, Essential hypertension, Hyperlipidemia Instructions: ED Heart Palpitations Prescriptions: No Action aspirin 81 mg [...] applic topical QDAY PRN (Reason: skin irritation) ramipril 10 MG capsule 10 mg PO [...] mL) insulin pen 22 unit subcut QHS amlodipine 2.5 mg tablet 2.5 mg PO .COMPLEX Rx Instructions: 2.5 mg orally Take 2 tabs QAM, 1 tab QPM; Primary Care Provider: Octavio Reza Referrals: Octavio Reza MD [Primary Care Provider, Internal Medicine] - As Needed Activity Restrictions/Additional Instructions: Your blood sugar was 111 Print Language: Anguillan Disposition Disposition: Home, Self Care What to do if you have Problems For any increased pain, shortness of breath, bleeding, nausea or vomiting, chestpain, or any unexpected problems, contact your Primary Care Provider. Call [facility] ([phone]) or report to the closest Emergency Room. Call 911 if necessary. 04/04/252216 <Electronically signed by Mark Leong MD> Cosigner Signature (if applicable): CC: Dr. Octavio Reza MD ~ Signed [facility] Work Phone: 1(731) 183-328209-12-2025 Telephone encounter Note* Telephone Encounter - Octavio Reza MD - 03/29/2025 7:00 PM EDT As noted, urine did not show any blood this time and also no WBCs. No further evaluation or treatment needed at this time. [facility] Miscellaneous Notes* Telephone Encounter - Octavio Reza MD - 03/29/2025 7:00 PM EDT As noted, urine did not show any blood this time and also no WBCs. No further evaluation or treatment needed at this time. * Telephone Encounter - Gloria Rand RN - 03/29/2025 11:05 AM EDT Pt calling in asking about recent repeat urinalysis test on 03/26. States she had the repeat done because she had some blood in her urine. Pt asking if there was blood this time. Pt told it was WNL. After provider review, no need to call pt unless something else needs to be done. documented in this encounterCity Hospital09-12-2025 Telephone encounter Note * Telephone Encounter - Gloria Rand RN - 03/29/2025 11:05 AM EDT Pt calling in asking about recent repeat urinalysis test on 03/26. States she had the repeat done because she had some blood in her urine. Pt asking if there was blood this time. Pt told it was WNL. After provider review, no need to call pt unless something else needs to be done. [facility] History of Present illness Narrative* Sergo Perez RD - 03/25/2025 10:00 AM EDT [facility] Medical Nutrition Therapy Follow up Visit Type: In-Person (Face to Face): Nutritional Visit: MNT/DIABETES Medical Diagnosis: Diabetes NUTRITION DIAGNOISIS STATEMENT:Has Not Changed From Last Encounter Date:10/01/24 NUTRITION REASSESSMENT: DIET HISTORY: Breakfast: scrambled eggs (w/ hot sauce) w/ rye toast and 2x/week grijalva (2-3 strips) Snack: ritz PB cracker Lunch: [employer] salad (w/ tomato/lettuce/blue cheese additional cheese/ ranch dressing) w/ or w/out plain icelandic yogurt w/ berries Dinner: [employer] salad (w/ tomato/lettuce/blue cheese additional cheese/ ranch dressing) w/ or w/outplain icelandic yogurt w/ berries Snack: ritz PB cracker and yogurt Beverages/Fluids: coffee (w/ milk, at least 2-3 tbsp), 6-7 bottles /day water, SF gatorade DIET HISTORY: 10/01/24 Breakfast: rye toast (1 slice) w/ 2 eggs (w/ hot sauce) and w/or w/out Lunch: [employer] salad w/ PB crackers, OR [place] non-fat plain yogurt w/ raspberries Snack: cookie [...] 20 mg by mouth once daily.) Insulin Owanka, Disposable, (BD ULTRA-FINE FADY PEN NEEDLE) 32 [...] regulation- discussed sourcesof high fiber foods. -- - Pt notes [...] STATEMENT: Has Not Changed Plan of Care TBD Renetta Mcgee APRN.C* Consult Billing Type: Re-assess/15 minutes, 3 increment(s), 45 minutes Start Time: 9:40 End Time: 10:[address] documented in this encounterCity Hospital09-08-2025 Note[facility] Telephone encounter Note* Telephone Encounter - Vibha Peña LPN - 03/22/2025 11:25 AM EDT Patient notified of results and provider's instructions. Patient verbalizes understanding. Vibha Peña LPN [facility] Miscellaneous Notes* Telephone Encounter - Vibha Peña LPN - 03/22/2025 11:25 AM EDT Patient notified of results and provider's instructions. Patient verbalizes understanding. Vibha Peña LPN * Telephone Encounter - Vibha Peña LPN - 03/22/2025 7:38 AM EDT Please let the patient know her blood counts, TSH, electrolytes, kidney and liver function were normal. The urinalysis indicated a small amount of hidden blood but the urine culture was negative for infection. Repeat urinalysis in one week, if continues to show blood then we will check an ultrasound Arleen Milan APRN.TITLE CURATIVE SPECIALIST Providers response from results notes. documented in this encounterCity Hospital09-05-2025 Telephone encounter Note * Telephone Encounter - Vibha Peña LPN - 03/22/2025 7:38 AM EDT Please let the patient know her blood counts, TSH, electrolytes, kidney and liver function were normal. The urinalysis indicated a small amount of hidden blood but the urine culture was negative for infection. Repeat urinalysis in one week, if continues to show blood then we will check an ultrasound Arleen Milan APRN.TITLE CURATIVE SPECIALIST Providers response from results notes. [facility]2025 Note[facility]09-02-2025 History of Present illness Narrative* Arleen Milan APRN.FABIO - 03/19/2025 12:17 PM EDT CC: Patient presents with: Blood Pressure Check: Home blood pressure running high, flushing cheeks in the am, HPI Recording using ambient Elco software for draft documentation of the visit was discussed with the patient/authorized industrial sales representative; all questions welcomed and answered. Patient/authorized industrial sales representative agreed to proceed The patient is [...] [Amiloride-Hydrochlorothiazide], Oseltamivir, Doxycycline, Escitalopram, Lysine, Naprosyn [Naproxen], Rktnmfu-Vqs-Vxo Reductase Inhibitors, Tylenol-Codeine #3 [Acetaminophen-Codeine], and Ventolin [...] by mouth once daily as needed. Insulin Owanka, Disposable, (BD ULTRA-FINE FADY PEN NEEDLE) 32 [...] for further interventions or medication adjustments once labsreturn. 2. Essential (primary) hypertension: Office blood pressure [...] Patient agreeable to treatment plan. Arleen Milan APRN.TITLE CURATIVE SPECIALIST [1] Social History Tobacco Use Smoking status: Former Current packs/day: 0.00 Average packs/day: 0.5 packs/day for 20.0 years (10.0 ttl pk-yrs) Types: Cigarettes Start date: 10/21/1978 Quit date: 10/21/1998 Years since quittin.4 Smokeless tobacco: Never Vaping Use Vaping status: Never Used Substance Use Topics Alcohol use: Not Currently Drug use: No documented in this encounterCity Hospital09-02-2025 Instructions* Patient Instructions* Arleen Milan APRN.CNP - 03/19/2025 11:37 AM EDT - Eliminate hot or spicy pepper sauces (capsaicin) from your meals for now to see if the facial flushing improves. - Purchase a simple home thermometer and check your temperature whenever your face feels flushed. - Keep your appointment with dietitian Sergo next week to review your recent bowel changes. - Discuss your ongoing diarrhea and diet adjustments with Marcela at your April visit. documented in this encounterCity Hospital08-28-2025 Telephone encounter Note * Telephone Encounter - Lydia Grande APRN.CNS - 03/14/2025 12:30 PM EDT Please let her know she can take an additional 1 or 2 doses of MiraLAX in addition to the other recommendations below if one dose is not helping. Let us know how she is doing tomorrow. [facility] Miscellaneous Notes* Telephone Encounter - Lydia Grande APRN.CNS - 03/14/2025 12:30 PM EDT Please let her know she can take an additional 1 or 2 doses of MiraLAX in addition to the other recommendations below if one dose is not helping. Let us know how she is doing tomorrow. * Telephone Encounter - Pattie Giles RN - 03/14/2025 8:20 AM EDT Reason for Conversation Constipation Background Patient calls [...] No Additional Information on file. Protocols Used Jxvigjltkfms-ZMOVC-PP documented in this encounterCity Hospital08-28-2025 Telephone encounter Note * Telephone Encounter - Pattie Giles RN - 03/14/2025 8:20 AM EDT Reason for Conversation Constipation Background Patient calls [...] No Additional Information on file. Protocols Used Qturxhlaooon-KWMIG-FC [facility]-27-2025 Telephone encounter Note* Telephone Encounter - Christine Mcelroy MA - 03/13/2025 2:55 PM EDT Order faxed Christine Mcelroy MA [facility]08-27-2025 Miscellaneous Notes* Telephone Encounter - Christine Mcelroy MA - 03/13/2025 2:55 PM EDT Order fakalebed Christine Mcelroy MA * Telephone Encounter - Asmita Alvarado - 03/12/2025 10:21 AM EDT Spouse returned call and I explained that her mammography order will be faxed to [facility] once signed off on, he did go ahead and arrange appointment with them for 04/02/25 * Telephone Encounter - Parris Eckert, DEONNA - 03/12/2025 10:13 AM EDT Pt's called in and reports they had tried calling [facility] Scheduling to get her mammogram scheduled and were not lauro to get through. I let him know we couldn't do anything with getting through [facility] scheduling department. I thought the mammogram order was already in the computer, but need a new one for this year. Please place order and fax to [facility] [phone]. Tried to call Pt's tolet him know I was getting a new order placed, but he didn't answer and no VM was set up. Parris Eckert, RN documented in this encounterCity Hospital08-26-2025 Telephone encounter Note * Telephone Encounter - Asmita Alvarado - 03/12/2025 10:21 AM EDT Spouse returned call and I explained that her mammography order will be faxed to [facility] once signed off on, he did go ahead and arrange appointment with them for 04/02/25 [facility] Telephone encounter Note* Telephone Encounter - aPrris Eckert, DEONNA - 03/12/2025 10:13 AM EDT Pt's called in and reports they had tried calling [facility] Scheduling to get her mammogram scheduled and were not lauro to get through. I let him know we couldn't do anything with getting through [facility] scheduling department. I thought the mammogram order was already in the computer, but need a new one for this year. Please place order and fax to [facility] [phone]. Tried to call Pt's tolet him know I was getting a new order placed, but he didn't answer and no VM was set up. Parris Eckert, RN [facility]-2025 NoteChildren[facility]08-21-2025 History of Present illness Narrative* Ramona Nicole - 03/07/2025 12:04 PM EDT POPULATION HEALTH NAVIGATION OUTREACH Action/ Returned Call: Patient declining appointment, will call provider's office if needed Reason for Outreach Returned Call/MyChart Patient Contacted: Spoke to patient/parent/or legal guardian Patient identified by name and date of : Yes Returned call/MyChart actions taken: Patient declined: Patient will contact office directly to schedule Navigation Signature: Ramona Nicole March 07, 2025 12:04 PM * Ramona Nicole - 03/07/2025 11:59 AM EDT POPULATION HEALTH NAVIGATION OUTREACH Action/ - 1 HCC F/U: Open HCCs Updated appt notes to address HCCs Called Patient: Unable to leave Voicemail & Sent Mychart. VM Full Reason for Outreach Care Gap/HCC or Scheduling Wellness Visits Care Gaps due: Follow-up Appointment Patient Contacted: Unable or unnecessary to reach patient: Unable to leave message MyChart message sent HCC related Updated appointment notes Navigation Signature: Ramona Nicole March 07, 2025 11:59 AM documented in this encounterCity Hospital08-21-2025 NoteChildren[facility]08-14-2025 Telephone encounter Note* Telephone Encounter - Trudy Wang MA - 02/28/2025 8:11 AM EDT Patients contacted the office stating the patient has a partial refill of Lantus Solostar. He contacted [facility] pharmacy and they are asking for an order for partial refill to be sent in. Please contact the back at [phone]. [facility] Miscellaneous Notes* Telephone Encounter - Trudy Wang MA - 02/28/2025 8:11 AM EDT Patients contacted the office stating the patient has a partial refill of Lantus Solostar. [facility] pharmacy and they are asking for an order for partial refill to be sent in. Please contact the back at [phone]. 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 Patient consents to pharmacy collaborative practice agreement. Last Pharmacy Visit: 12/18/24 HPI: On speaker phone with patient and spouse, Elijah Reports doing well States she is frustrated with not being able to lose weight, was recommended to meet with dietitianwhich she will be meeting with next month Current DM Medications: Lantus 22 units once daily Insulin aspart 4 units with breakfast, 4 units with lunch, 5 units with dinner + SS#1 Diet Breakfast is always the same - 1 piece rye toast, 2 eggs, coffee; occasionally has a piece of grijavla Eating a lot of salads GLYCEMIC CONTROL: Glucometer present at visit: BG log present Hypoglycemia: Yes - has symptoms of feeling faint and shaky SMBGS (Fingersticks) Date Fasting AM Insulin dose 2 hr PP Before Lunch Insulin dose 2 hr PP Before Dinner Insulin dose 2hr PP Bedtime Basal Insulin 02/25 115 4 02/24 155 5 87* 163 5 248 7 179 22 02/23 113 4 208 6 228 7 150 111* 133 167 02/22 135 4 58* 89 247 6 129 5 135 190 02/21 159 5 156 161 5 161 127 5 154 148 157 02/20 181 5 84 210 6 228 247 7 100 155 02/19 87* 116 4 73* 102 241 6 124 121 5 125 121 22 02/18 146 4 89 167 170 5 208 213 7 232 240 22 02/17 167 5 163 5 147 213 193 [...] mouth once daily.) 90 tablet 3 Insulin Owanka, Disposable, (BD ULTRA-FINE FADY PEN NEEDLE) 32 [...] 05/08/25 Next PharmD visit: 05/20/25 Charis Lucas, PharmD, BCACP Primary Care Clinical Admission Nurse Coordinator [1] Allergies Allergen Reactions Hctz [Amiloride-Hyd* Other: See Comments Rapid heart beat, nausea, light eaded. (lasted about 12 hours after first dose) Oseltamivir Mental Status Change hallucinations Doxycycline GI Upset Escitalopram Intolerance Fatigued after just a half pill dose. Did not want to take anymore. Lysine Itching Naprosyn [Naproxen] GI Upset Nausea Rxjuafa-Mcu-Kpp Red* Myalgia Tylenol-Codeine #3 * Vomiting Ventolin [Albuterol* GI Upset, Vomiting documented in this encounterCity Hospital08-11-2025 NoteChildren[facility]07-23-2025 History of Present illness Narrative* Renetta Mcgee, JOSEFINA.TITLE CURATIVE SPECIALIST - 02/06/2025 12:15 PM EDT OFFICE VISIT PROGRESS NOTE CC [...] (Patient not taking: Reported on 05/23/2024) Insulin Owanka, Disposable, (BD ULTRA-FINE FADY PEN NEEDLE) 32 [...] Lysine Itching Naprosyn [Naproxen] GI Upset Nausea Nmloaem-Bzf-Lmo Red* Myalgia Tylenol-Codeine #3 * Vomiting Ventolin [...] add extra in between meal insulin ENDO HEAD OF LOSS PREVENTION for DM meal planning and weight loss, [...] Plan: Renetta Mcgee CNP documented in this encounterCity Hospital07-23-2025 NoteChildren[facility]07-16-2025 Telephone encounter Note* Telephone Encounter - Norma Devlin RN - 01/30/2025 10:47 AM EDT Call received from Pt - name & [...] going to make a to-do list so shedoesn't forget to take her insulin again. Spouse present on speaker phone for entire conversation and voices understanding, as well. Norma Devlin RN January 30, 2025 10:55 AM [facility] Miscellaneous Notes* Telephone Encounter - Norma Devlin RN - 01/30/2025 10:47 AM EDT Call received from Pt - name & [...] going to make a to-do list so shedoesn't forget to take her insulin again. Spouse present on speaker phone for entire conversation and voices understanding, as well. Norma Devlin RN January 30, 2025 10:55 AM documented in this encounterCity Hospital07-15-2025 History of Present illness Narrative* Davon Wolfe APRN.TITLE CURATIVE SPECIALIST - 01/29/2025 2:00 PM EDT SUBJECTIVE Attila Kidd is a 79 year [...] Attila is under the care of a heater engineer helper, who has also attributed her symptoms to anxiety. She is currently taking amlodipine 10 mg, divided into 5 mg in the morning and 2.5 mg in the evening, for elevated blood pressure. She reports difficulty with the current dosing regimen and expresses a preference for a simplified medication schedule. Attila also reports experiencing upper abdominal discomfort, which she describes as pressure and gas.She notes that taking Tums provides relief. She denies bloating or belching but mentions experiencing gas. She has a history of taking Prilosec but discontinued it some time ago. Attila reports significant weight loss, approximately 67 lbs, since October 2023, with a current weightof 277 lbs. She attributes this to dietary [...] by mouth once daily as needed. Insulin Owanka, Disposable, (BD ULTRA-FINE FADY PEN NEEDLE) 32 [...] Lysine Itching Naprosyn [Naproxen] GI Upset Nausea Vhmyomn-Kti-Zzs Red* Myalgia Tylenol-Codeine #3 * Vomiting Ventolin [...] Adult ([facility]) - 04/18/2017 Asthma ([facility]) - 05/06/2014 Vitamin D Deficiency - 08/21/2010 [...] visit. Patient is under the care of pipe threader Dr. Reza, with a follow-up scheduled in [...] scheduled appointment.. RACHEL Romero documented in this encounterCity Hospital07-15-2025 NoteChildren'S [facility]07-11-2025 Discharge summary [facility] Medical Records Department [address] [place] [address] Emergency Department Summary 01/25/25 MR#: [id number] Acct: [id number] Name: ATTILA KIDD Rep #:[id number] : 1945 79 From: Mark Leong MD [...] history of type 1 diabetes, palpitations, obstructive sleepapnea, essential hypertension, PSVT, hyperlipidemia, obstructive sleep apnea. She presents with palpitations. Bloodsugar was high starting at 5 PM. She states her blood sugar was under 1 good controluntil then. She denies fever, chills night sweats. [...] urgency or hematuria. Recent Illness/Hospitalization: No PFSH [facility] Medical History THAIS (obstructive sleep apnea) Hyperglycemia [...] amiodarone Allergy Intermediate Swelling Verified 01/25/25 20:41 Staples And Derivatives Allergy Intermediate Hives Verified 01/25/25 [...] 01/25/25 20:41 Airborne (ascorbate sodium)) hydrocodone (From Kramer) Allergy Mild dystonia Verified 01/25/25 20:41 lysine [...] AdvReac Severe HALLUCINATI Verified 01/25/25 20:41 ONS Obbtpuz-VSO-DiD Reductase AdvReac Severe myalgias Verified 01/25/25 20:41 Inhibitor (Jettsux-Rzb-Czb Reductase Inhibitor) amoxicillin (From Augmentin) AdvReac Other [...] Denies chest pain, orthopnea, paroxysmal nocturnal dyspnea orracing heartbeat Respiratory/Chest Respiratory/Chest: Denies cough, dyspnea, dyspnea [...] bowel sounds, non-tender, non- distended and no masses; Negative for hepatosplenomegaly GI [...] insulin dose tonight as scheduled Print Language: Anguillan Disposition Disposition: Home, Self Care What to do if you have Problems For any increased pain, shortness of breath, bleeding, nausea or vomiting, chestpain, or any unexpected problems, contact your Primary Care Provider. Call [facility] ([phone]) or report tothe closest Emergency Room. Call 911 if necessary. 01/25/25 2211 Cosigner Signature (if applicable): CC: Dr. Octavio Reza MD ~ Signed [facility]07-11-2025 Discharge summary Author Mark Leong [facility] Note Date/Time January 25, 2025 10:1 1pm [facility] Medical Records Department [address] [place] [address] Emergency Department Summary 01/25/25 MR#: [id number] Acct: [id number] Name: ATTILA KIDD Rep #:[id number] : 1945 79 From: Mark Leong MD [...] urgency or hematuria. Recent Illness/Hospitalization: No PFSH PFSH Medical History [...] amiodarone Allergy Intermediate Swelling Verified 01/25/25 20:41 Staples And Derivatives Allergy Intermediate Hives Verified 01/25/25 [...] 01/25/25 20:41 Airborne (ascorbate sodium)) hydrocodone (From Kramer) Allergy Mild dystonia Verified 01/25/25 20:41 lysine [...] AdvReac Severe HALLUCINATI Verified 01/25/25 20:41 ONS Nzntyxf-SZC-HtZ Reductase AdvReac Severe myalgias Verified 01/25/25 20:41 Inhibitor (Tiphvix-Kut-Vce Reductase Inhibitor) amoxicillin (From Augmentin) AdvReac Other [...] insulin dose tonight as scheduled Print Language: Anguillan Disposition Disposition: Home, Self Care What to do if you have Problems For any increased pain, shortness of breath, bleeding, nausea or vomiting, chestpain, or any unexpected problems, contact your Primary Care Provider. Call [facility] ([phone]) or report to the closest Emergency Room. Call 911 if necessary. 01/25/252210 <Electronically signed by Mark Leong MD> Cosigner Signature (if applicable): CC: Dr. Octavio Reza MD ~ Signed [facility] Work Phone: [phone]) 652-851707-01-2025 NoteChildren[facility]07-01-2025 History of Present illness Narrative* Octavio Reza MD - 01/15/2025 10:13 AM EDT Images from the original note were not included. This note was created using GameBuilder Studioriter. Subjective Attila Kidd is a 79 year old female. HISTORY Attila Kidd is a 79 year old lady here for Medicare Annual Wellness Visit, yearly exam and follow up appointment. Attila iKdd is a 79-year-old female with a history of DM, HTN, and recent ER visits for chest pain, presenting for a Medicare Annual Wellness Visit. Atitla reports no recent falls and is actively engaging in exercise. She experiences anxiety and stress, which she attributes to medical issues. She is under the care of a heater engineer helper, ALEN Mcgregor, at [facility]. She has two sisters and no [...] daily but has been advised by her heater engineer helper to take a whole tablet once daily. [...] She is under the care of a flattening press operator, Dr. Padgett, and is considering getting new shoes from [employer]. She is also considering a new brace [...] by mouth once daily as needed. Insulin Owanka, Disposable, (BD ULTRA-FINE FADY PEN NEEDLE) 32 [...] Lysine Itching Naprosyn [Naproxen] GI Upset Nausea Psjhpxs-Zpd-Izb Red* Myalgia Tylenol-Codeine #3 * Vomiting Ventolin [...] - 4.00 k/uL 0.48 (L) 0.81 (L) Carver% % 6.3 7.6 Abs Carver <0.87 k/uL 0.46 0.40 Eosin% % 3.6 [...] medical record. Outside specialists seen: ALEN Smith ([facility]) Medical/Family history review Reviewed and [...] optometry/ophthalmology Assessment/Plan Medicare annual wellness visit, subsequent (Z00.00) - Counseled on healthy diet and regular exercise - Fall avoidance information provided - Personalized prevention plan provided ASSESSMENT AND PLAN # Medicare annual wellness visit, subsequent (Z00.00) - Completed Medicare annual wellness visit. - [...] monitor progress. Octavio Reza MD Recording using ambient Elco software for draft documentation of the visit was discussed with the patient/authorized industrial sales representative; all questions welcomed and answered. Patient/authorized industrial sales representative agreed to proceed documented in this encounterCity Hospital07-01-2025 Instructions* Patient Instructions* Octavio Reza MD - [...] (cold drinks, caffeine, tomatoes, large meals); try zvgo-mxl-dgilicj Tums, Rolaids, or Pepcid AC for occasional heartburn. If reflux symptoms persist, call our office. - Practice stress-relief breathing: inhale to a count of 4, exhale to a count of 8 (or use any comfortable 1:2 iyqkcj-zk-hbfnhd ratio) to help lower your blood pressure. [...] review all the medicines you take, even vwhy-yxk-zogjowl medicines. As you get older, the way [...] have certain medical conditions. documented in this encounterCity Hospital06-30-2025 Evaluation note* Diagnosis Onset Date Resolution Status Admit Date Abnormal stress test acute January 14, 2025 9:37am THAIS (obstructive sleep apnea) acute January 14, 2025 9:37am Essential hypertension chronic [facility] 2024 9:37am Paroxysmal SVT (supraventric ular tachycardia) chronic January 14, 2025 9:37am [facility] Work Phone: [phone] Radiology Diagnostic study note [facility] Imaging Services [address] [place], [place] [address] Chest PA and Lateral MR#: [id number] Acct: [id number] Name: ATTILA KIDD Rep #: [id number] : 1945 F 79 From: Ebony Stanford MD PCP: Dr. Octavio Reza MD Status: RE G ER Study:Chest PA and Lateral Date of Exam: 01/04/25 Exam# [id number] Ordering Dr: Amber Rose EXAM: XR Chest, 2 Views CLINICAL INDICATION: CHEST PAIN TECHNIQUE: Frontal and lateral views of the chest. COMPARISON: No relevant prior studies available. FINDINGS: LUNGS AND PLEURAL SPACES: Unremarkable. No consolidation. No pneumothorax. HEART: Unremarkable. No cardiomegaly. MEDIASTINUM: Unremarkable. Normal mediastinal contour. BONES/JOINTS: Unremarkable. No acute fracture. RAD/Chest PA and Lateral IMPRESSION: No acute cardiopulmonary process. Reading Location: [id number] CC: Dr. Octavio Reza MD; ALEN Diamond ~ Automotive Lot Attendant: Signed [facility]06-06-2025 Telephone encounter Note* Telephone Encounter - Norma Devlin RN - 12/21/2024 9:59 AM EDT Call placed to Ashok (on speaker phone). Elijah reports that he did end up taking Pt to [facility] ED on 12/19/2024. He reports that they checked a urine to make sure she didn't have an infection, and it was clear. They did not run any other blood work; they just reviewed her lab results from 11/2024. Pulled [facility] ED records: -Discharge diagnosis was 'Anxiety' [...] Devlin RN December 21, 2024 10:07 AM [facility] Miscellaneous Notes* Telephone Encounter - Norma Devlin RN - 12/21/2024 9:59 AM EDT Call placed to Ashok (on speaker phone). Elijah reports that he did end up taking Pt to [facility] ED on 12/19/2024. He reports that they checked a urine to make sure she didn't have an infection, and it was clear. They did not run any other blood work; they just reviewed her lab results from 11/2024. Pulled [facility] ED records: -Discharge diagnosis was 'Anxiety' [...] unable to leave message. Will route to [facility] nurse ripton in the case that Pt and/or spouse [...] the ED? Please contact patient/ back at [phone]. documented in this encounterCity Hospital06-05-2025 Telephone encounter Note * Telephone Encounter - [...] like to see the DM EDUCATOR again? [facility]06-04[facility]2025 Discharge summary [facility] Medical Records Department [address] [place] [address] Emergency Department Summary 12/19/24 MR#: [id number] Acct: [id number] Name: ATTILA KIDD Rep #:[id number] : 1945 79 From: Abdulaziz Stratton MD [...] amiodarone Allergy Intermediate Swelling Verified 12/19/24 15:49 Staples And Derivatives Allergy Intermediate Hives Verified 12/19/24 [...] 12/19/24 15:49 Airborne (ascorbate sodium)) hydrocodone (From Kramer) Allergy Mild dystonia Verified 12/19/24 15:49 lysine [...] AdvReac Severe HALLUCINATI Verified 12/19/24 15:49 ONS Zbnmduu-UWG-JaA Reductase AdvReac Severe myalgias Verified 12/19/24 15:49 Inhibitor (Yfgbkus-Udm-Wyc Reductase Inhibitor) amoxicillin (From Augmentin) AdvReac Other [...] are nontender without edema or cords. Normal ore digger strength. Normal dorsi plantarflexion. Back nontender. Neurologically [...] scale when you get home. Print Language: Anguillan Disposition Disposition: Home, Self Care What to do if you have Problems For any increased pain, shortness of breath, bleeding, nausea or vomiting, chestpain, or any unexpected problems, contact your Primary Care Provider. Call [facility] ([phone]) or report tothe closest Emergency Room. Call 911 if necessary. 12/19/24 1742 Cosigner Signature (if applicable): CC: Dr. Octavio Reza MD ~ Signed [facility]06-04-2025 Telephone encounter Note* Telephone Encounter - Norma Devlin RN - 12/19/2024 3:57 PM EDT Call attempt back to Pt's , Elijah. Voicemail full, unable to leave message. Will route to [facility] triage nurse pool in the case that Pt and/or spouse return call. *Pt does have a h/o UTI so that might be something that needs ruled out. Current insulin orders perRenetta Mcgee CNP only advise insulin be taken PRE-MEAL. They have been educated previously on not checking blood sugars too much or between meals.* Norma Devlin RN December 19, 2024 3:58 PM [facility] Telephone encounter Note* Telephone Encounter - Trudy [...] the ED? Please contact patient/ back at [phone]. [facility] Discharge summary Author Abdulaziz Stratton [facility] Note Date/Time December 19, 2024 5:42p m [facility] Medical Records Department [address] [place] [address] Emergency Department Summary 12/19/24 MR#: [id number] Acct: [id number] Name: ATTILA KIDD Rep #:[id number] : 1945 79 From: Abdulaziz Stratton MD [...] amiodarone Allergy Intermediate Swelling Verified 12/19/24 15:49 Staples And Derivatives Allergy Intermediate Hives Verified 12/19/24 [...] 12/19/24 15:49 Airborne (ascorbate sodium)) hydrocodone (From Kramer) Allergy Mild dystonia Verified 12/19/24 15:49 lysine [...] AdvReac Severe HALLUCINATI Verified 12/19/24 15:49 ONS Jnzhnpi-BZQ-SdH Reductase AdvReac Severe myalgias Verified 12/19/24 15:49 Inhibitor (Vormlnz-Ooc-Qti Reductase Inhibitor) amoxicillin (From Augmentin) AdvReac Other [...] are nontender without edema or cords. Normal ore digger strength. Normal dorsi plantarflexion. Back nontender. Neurologically [...] scale when you get home. Print Language: Anguillan Disposition Disposition: Home, Self Care What to do if you have Problems For any increased pain, shortness of breath, bleeding, nausea or vomiting, chestpain, or any unexpected problems, contact your Primary Care Provider. Call [facility] ([phone]) or report to the closest Emergency Room. Call 911 if necessary. 12/19/24 1742 <Electronically signed by Abdulaziz Stratton MD> Cosigner Signature (if applicable): CC: Dr. Octavio Reza MD ~ Signed [facility] Work Phone: 1(764) 554-384606-03-2025 History of Present illness Narrative* Charis Lucas, formerly [facility] - 12/18/2024 9:00 AM EDT Primary Care [...] 218 6 189 178 6 195 181 12/15 124 5 150 5 155 166 6 166 211 12/14 186 6 158 5 94 177 221 7 200 158 12/13 186 6 138 175 5 231 218 7 92 155 12/12 86* 156 6 126 138 4 190 177 6 205 191 12/11 165 6 152 223 307 8 206 236 228 197 186 6 218 191 12/10 144 5 120 141 4 186 [...] Lysine Itching Naprosyn [Naproxen] GI Upset Nausea Kpfiymq-Bto-Zsc Red* Myalgia Tylenol-Codeine #3 * Vomiting Ventolin [...] Reported on 05/23/2024) 6 Each 4 Insulin Owanka, Disposable, (BD ULTRA-FINE FADY PEN NEEDLE) 32 [...] visit: 02/06/25 Next PharmD visit: 02/25/25 Charis Lucas PharmD, BCACP Primary Care Clinical Admission Nurse Coordinator documented in this encounterCity Hospital06-03-2025 [facility]Children[facility]-30-[facility] Telephone encounter Note* Telephone Encounter - Pattie [...] needed at this time. Pattie Giles RN [facility]05-30-2025 Miscellaneous Notes* Telephone Encounter - Pattie [...] time. Pattie Giles RN documented in this encounterCity Hospital05-28-2025 Telephone encounter Note * Telephone Encounter [...] Brush LPN December 12, 2024 2:25 PM [facility]-28-2025 Miscellaneous Notes* Telephone Encounter - Cesar [...] 12, 2024 2:25 PM documented in this encounterCity Hospital05-28-2025 Telephone encounter Note * Telephone Encounter - Davon Wolfe APRN.CNP - 12/12/2024 12:45 PM EDT Noted and agree. [facility]-28-2025 Miscellaneous Notes* Telephone Encounter - Davon [...] back. Pt verbalizes understanding. documented in this encounterCity Hospital05-28-2025 Telephone encounter Note * Telephone Encounter [...] us a call back. Pt verbalizes understanding. [facility]-15-2025 Discharge summary [facility] Medical Records Department [address] [place] [address] Emergency Department Summary 11/29/24 MR#: [id number] Acct: [id number] Name: ATTILA KIDD Rep #:[id number] : 1945 79 From: Serg Solis MD [...] 200s, and even as high as in [id number]'s. She presents with concern of her elevated blood sugar and she states that she can eat when she felt her blood sugar was dropping. No recent illness or cough. [facility] Medical History THAIS (obstructive sleep apnea) Hyperglycemia [...] amiodarone Allergy Intermediate Swelling Verified 11/29/24 21:13 Staples And Derivatives Allergy Intermediate Hives Verified 11/29/24 [...] 11/29/24 21:13 Airborne (ascorbate sodium)) hydrocodone (From Kramer) Allergy Mild dystonia Verified 11/29/24 21:13 lysine [...] AdvReac Severe HALLUCINATI Verified 11/29/24 21:13 ONS Yxmwlir-QXH-GxP Reductase AdvReac Severe myalgias Verified 11/29/24 21:13 Inhibitor (Cicykdh-Owd-Xqe Reductase Inhibitor) amoxicillin (From Augmentin) AdvReac Other [...] with diabetes versus uncontrolled blood sugar/blood glucose. Czvov-pn-zcbo glucosewill be obtained. Blood work will be [...] at home. She will follow-up with her pipe threader tomorrow.Where of care glucose after 1L is 265. Once again, as she has not experiencing nausea or vomiting, I feel she can be discharged to take her 22 units of Lantus and follow-up with her pipe threader tomorrow. Patient motivated for discharge. is also [...] % (Auto) 64.8 Lymph % (Auto) 20.6 Carver % (Auto) 7.2 Eos % (Auto) 6.6 [...] Clarity Clear Urine pH 6.0 Ur Specific [place] 1.015 Urine Protein 15 H Urine Glucose [...] - Activity Restrictions/Additional Instructions: Follow-up with your pipe threader tomorrow. Call them with a log of your blood sugars as you havebeen. Keep a log of your blood sugars. Return with fever, chills, nausea, vomiting, abdominal pain,new or worsening symptoms. Print Language: Anguillan Disposition Disposition: Home, Self Care What to do if you have Problems For any increased pain, shortness of breath, bleeding, nausea or vomiting, chestpain, or any unexpected problems, contact your Primary Care Provider. Call [facility] ([phone]) or report tothe closest Emergency Room. Call 911 if necessary. 11/29/24 2331 Cosigner Signature (if applicable): CC: Dr. Octavio Reza MD ~ Signed [facility]05-15-2025 Discharge summary Author Serg Solis [facility] Note Date/Time November 29, 2024 11:31 pm [facility] Medical Records Department [address] [place] [address] Emergency Department Summary 11/29/24 MR#: [id number] Acct: [id number] Name: ATTILA KIDD Rep #:[id number] : 1945 79 From: Serg Solis MD [...] was dropping. No recent illness or cough. [facility] Medical History THAIS (obstructive sleep apnea) Hyperglycemia [...] amiodarone Allergy Intermediate Swelling Verified 11/29/24 21:13 Staples And Derivatives Allergy Intermediate Hives Verified 11/29/24 [...] 11/29/24 21:13 Airborne (ascorbate sodium)) hydrocodone (From Kramer) Allergy Mild dystonia Verified 11/29/24 21:13 lysine [...] AdvReac Severe HALLUCINATI Verified 11/29/24 21:13 ONS Eladcfl-IGJ-QkL Reductase AdvReac Severe myalgias Verified 11/29/24 21:13 Inhibitor (Wbjtzoq-Awj-Fjd Reductase Inhibitor) amoxicillin (From Augmentin) AdvReac Other [...] with diabetes versus uncontrolled blood sugar/blood glucose. Amwkp-fr-dojx glucose will be obtained. Blood work will [...] at home. She will follow-up with her pipe threader tomorrow. Where of care glucose after 1L is 265. Once again, as she has not experiencing nausea or vomiting, I feel she can be discharged to take her 22 units of Lantus and follow-up with her pipe threader tomorrow. Patient motivated for discharge. is also [...] % (Auto) 64.8 Lymph % (Auto) 20.6 Carver % (Auto) 7.2 Eos % (Auto) 6.6 [...] Clarity Clear Urine pH 6.0 Ur Specific [place] 1.015 Urine Protein 15 H Urine Glucose [...] - Activity Restrictions/Additional Instructions: Follow-up with your pipe threader tomorrow. Call them with a log of your blood sugars as you have been. Keep a log of your blood sugars. Return with fever, chills, nausea, vomiting, abdominal pain, new or worsening symptoms. Print Language: Anguillan Disposition Disposition: Home, Self Care What to do if you have Problems For any increased pain, shortness of breath, bleeding, nausea or vomiting, chestpain, or any unexpected problems, contact your Primary Care Provider. Call [facility] ([phone]) or report to the closest Emergency Room. Call 911 if necessary. 11/29/24 2331 <Electronically signed by Serg Solis MD> Cosigner Signature (if applicable): CC: Dr. Octavio Reza MD ~ Signed [facility] Work Phone: 1(290) 414-649505-01-2025 Evaluation note* Diagnosis Onset Date Resolution Status Admit Date Abnormal stress test acute November 15, 2024 8:05am THAIS (obstructive sleep apnea) acute November 15, 2024 8:05am Essential hypertension chronic Ma y 2024 8:05am Paroxysmal SVT (supraventric ular tachycardia) chronic November 15, 2024 8: 05am [facility] Work Phone: 1([phone]) 642-494905-01-2025 Evaluation note* Diagnosis Onset Date Resolution Status [...] ular tachycardia) chronic January 14, 2025 9:37am [facility] Work Phone: [phone]) 434-453904-23-2025 NoteChildren[facility]04-23-2025 History of Present illness Narrative* Eliza Gilliland [...] 07, 2024 10:29 AM documented in this encounterCity Hospital04-22-2025 History of Present illness Narrative* Charis Lucas, formerly [facility] - 11/06/2024 9:00 AM EDT Primary Care [...] Lysine Itching Naprosyn [Naproxen] GI Upset Nausea Fubktko-Juu-Seb Red* Myalgia Tylenol-Codeine #3 * Vomiting Ventolin [...] Reported on 05/23/2024) 6 Each 4 Insulin Owanka, Disposable, (BD ULTRA-FINE FADY PEN NEEDLE) 32 [...] Rx coverage: Payor: T MEDICARE / Plan: AET MEDICARE PPO / [...] Charis Lucas, PharmD, BCACP Primary Care Clinical Admission Nurse Coordinator documented in this encounterCity Hospital04-22-2025 NoteChildren[facility]04-16-2025 NoteChildren'[facility]04-16-2025 History of Present illness Narrative* Renetta Mcgee, JOSEFINA.TITLE CURATIVE SPECIALIST - 10/31/2024 3:18 PM EDT OFFICE VISIT [...] are doing very well Working with ENDO HEAD OF LOSS PREVENTION Sugars have run mostly between 105-177 with [...] has not had advanced carb counting with kids activities coach She wants to eat different foods, but [...] by mouth once daily as needed. Insulin Owanka, Disposable, (BD ULTRA-FINE FADY PEN NEEDLE) 32 [...] Lysine Itching Naprosyn [Naproxen] GI Upset Nausea Iwbjiio-Wbn-Zlm Red* Myalgia Tylenol-Codeine #3 * Vomiting Ventolin [...] (HCC) (primary encounter diagnosis) Discussed seeing ENDO HEAD OF LOSS PREVENTION again for advanced carb counting, DM meal [...] office as needed FOLLOW UP WITH ENDO HEAD OF LOSS PREVENTION as discussed Recommended diet: Low carbohydrate and [...] (MNT) Renetta Mcgee CNP documented in this encounterCity Hospital04-14-2025 Telephone encounter Note * Telephone Encounter [...] sooner and are scheduled this week. Tierney Deulca MA [facility]04-14-2025 Miscellaneous Notes* Telephone Encounter - Tierney [...] week. Tierney Deluca MA documented in this encounterCity Hospital04-09-2025 Radiology Diagnostic study note [facility] Imaging Services [address] [place], [place] [id number] Venous Duplex Imag/Limited/Uni MR#: [id number] Acct: [id number] Name: ATTILA KIDD Rep #: [id number] : 1945 F 79 From: Marisela Herman MD PCP: Dr. Octavio Reza MD Status: [place] E ER Study:Venous Duplex Imag/Limited/Uni Date of Exam: 10/24/24 Exam# [id number] Ordering Dr: Benjamín Stanford DO PROCEDURE: VENOUS [...] Reza MD; Dr. Benjamín Stanford DO ~ Automotive Lot Attendant: Signed [facility]04-05-2025 Telephone encounter Note* Telephone Encounter - Octavio Reza MD - 10/20/2024 5:56 AM EDT Noted Follow up as needed for labile glucose [facility]-05[facility]20[facility] Miscellaneous Notes* Telephone Encounter - Octavio Reza MD - 10/20/2024 5:56 AM EDT Noted Follow up as needed for labile glucose * Telephone Encounter - Norma Devlin RN - 10/19/2024 4:34 PM EDT Call returned to Pt and spouse, Elijah. Confirmed Pt name & . Clarification received re: [facility] ED visit today after the 2 lacing string cutter calls. Pt went to the ED for [...] the ED. Pt and spouse voice understanding. [facility] ED documents in scanned documents. Dr. [...] possible. Cayla Johnston MA documented in this encounterCity Hospital04-04-2025 Telephone encounter Note * Telephone Encounter - Norma Devlin RN - 10/19/2024 4:34 PM EDT Call returned to Pt and spouse, Elijah. Confirmed Pt name & . Clarification received re: [facility] ED visit today after the 2 lacing string cutter calls. Pt went to the ED for [...] the ED. Pt and spouse voice understanding. [facility] ED documents in scanned documents. Dr. Reza and Renetta Mcgee CNP notified. Norma Devlin RN October 19, 2024 4:54 PM [facility]-04-20[facility] Telephone encounter Note* Telephone Encounter - Cayla Johnston MA - 10/19/2024 3:01 PM EDT Pt is calling with questions about her blood sugars and her medication. Sugar is running high and she is quite concerned. Would like to speak with a nurse in Endocrinology. Today if possible. Cayla Johnston MA [facility]04-04-2025 Radiology Diagnostic study note [facility] Imaging Services [address] [place] [address] HIP, UNI W/ Pelvis 2-3 Views MR#: [id number] Acct: [id number] Name: ATTILA KIDD Rep #: [id number] : 1945 F 79 From: Sunday Terrell MD PCP: Dr. Octavio Reza MD Status: RE G ER Study:HIP, UNI W/ Pelvis 2-3 Views Date of Ex am: 10/19/24 Exam# [id number] Ordering Dr: Jodi Sanches DO PROCEDURE: HIP, UNI W/ PELVIS 2-3 VIEWS 10/19/2024 REASON FOR EXAM: Left hip pain. TECHNIQUE: Three views of the left hip COMPARISON: None FINDINGS: Bones: Unremarkable Joints: Mild degree of joint space narrowing. Narrowing of the symphysis pubis. Soft tissues: Calcified phleboliths. Other: RAD/HIP, UNI W/ Pelvis 2-3 Views IMPRESSION: DEGENERATIVE OSTEOARTHROSIS. NO ACUTE FINDINGS. Reading Location: [place] [address] CC: Dr. Holland Sanches DO; Dr. Octavio Reza MD ~ Automotive Lot Attendant: Signed [facility]04-04-2025 Telephone encounter Note* Telephone Encounter - [...] is out of joint. Protocols used: Leg Brbo-ZGCXZ-LF [facility]-04-2025 Miscellaneous Notes* Telephone Encounter - Darlene [...] is out of joint. Protocols used: Leg Gzpi-NAIDX-SQ * Telephone Encounter - Asmita Tapia RN [...] no Protocols used: Diabetes - High Blood Awcqm-XPEBE-HU documented in this encounterCity Hospital04-04-2025 Telephone encounter Note * Telephone Encounter [...] no Protocols used: Diabetes - High Blood Kadbo-UCFQP-BM [facility]03-31-2025 Instructions* Patient Instructions* Octavio Reza MD [...] these tests in mid-December. documented in this encounterCity Hospital03-31-2025 NoteChildren'S [facility]03-31-2025 History of Present illness Narrative* Octavio Reza MD - 10/15/2024 2:12 PM EDT This note was created using Embibe. Subjective Attila Kidd is a 79 year [...] then wash off in the morning Insulin Owanka, Disposable, (BD ULTRA-FINE FADY PEN NEEDLE) 32 [...] Lymph 1.00 - 4.00 k/uL 0.81 (L) Carver% % 7.6 Abs Carver <0.87 k/uL 0.40 Eosin% % 4.9 Abs [...] to be conducted in mid-December, prior to Noemi appointment. # Constipation, unspecified constipation type (K59.00) [...] given. Octavio Reza MD documented in this encounterCity Hospital03-20-2025 Telephone encounter Note * Telephone Encounter - Ritika Santos LPN - 10/04/2024 4:08 PM EDT Patient notified of providers message and verbalized understanding. [facility] Miscellaneous Notes* Telephone Encounter - Ritika [...] but has never tried them. Patientuses [facility] for her pharmacy if needed. Patient asking what else can she do to help with her bowels? Please advise documented in this encounterCity Hospital03-20-2025 Telephone encounter Note * Telephone Encounter - Lydia Grande APRN.MADELIN - 10/04/2024 3:46 PM EDT Take a Dulcolax and another dose of MiraLAX this evening. Try walking this evening as able. Recommend she drink plenty of fluids. If no results tonight then would repeat the medications in the morning. Call and let us know how she is doing tomorrow. [facility] Telephone encounter Note* Telephone Encounter - [...] but has never tried them. Patientuses [facility] for her pharmacy if needed. Patient asking what else can she do to help with her bowels? Please advise [facility]-17-2025 Telephone encounter Note* Telephone Encounter - Bianca Waldrop MA - 10/01/2024 2:47 PM EDT Patient informed and verbalized understanding. Will try the warm compresses. Bianca Waldrop MA [facility]03-17-2025 Miscellaneous Notes* Telephone Encounter - Bianca [...] back on neck and put on some Hungarian Dream, Arthritis pain relief cream at 11 [...] about this. Please advise documented in this encounterCity Hospital03-17-2025 NoteChildren[facility]03-13-2025 Telephone encounter Note* Telephone Encounter - Octavio [...] or forehead to see if that helps? [facility]13[facility]2025 Telephone encounter Note* Telephone Encounter - Cesar Brush LPN - 09/27/2024 2:29 PM EDT Patient calling she was having pain back on neck and put on some Hungarian Dream, Arthritis pain relief cream at 11 [...] sent to PCP about this. Please advise [facility]03-12-2025 Instructions* Patient Instructions* Octavio Reza MD [...] with portion control as advised by your pipe threader. - Continue your exercise routine, including riding your stationary bike. - Drink plenty of water daily. - Follow up with your pipe threader and pharmacist as scheduled. - Next appointment on the of this month for routine follow-up and lab tests. documented in this encounterCity Hospital03-12-2025 History of Present illness Narrative* Octavio Reza MD - 09/26/2024 10:00 AM EDT Images from the original note were not included. This note was created using 99testster. Subjective Attila Kidd is a 79 year [...] She is under the care of an pipe threader and a PharmD, and has been following [...] (Patient not taking: Reported on 05/23/2024) Insulin Owanka, Disposable, (BD ULTRA-FINE FADY PEN NEEDLE) 32 [...] - Follow-up with endocrinology team, including Marcela Kumar, TAMARA, and Armando SaucedoD. # Anemia, unspecified type [...] progress. Octavio Reza MD documented in this encounterCity Hospital03-12-2025 NoteChildren'S [facility]03-11-2025 Telephone encounter Note* Telephone Encounter - Christine Mcelroy MA - 09/25/2024 2:44 PM EDT Denial states that [employer] brand not covered but onetouch ultra is. Pharmacy dispense report shows been getting onetouch ultra monthly. Called [facility] and ran for onetouch ultra and covered went through as paid claim. Discarded denial. Christine Mcelroy MA [facility]-11-2025 Miscellaneous Notes* Telephone Encounter - Christine Mcelroy [...] 200 test strips dispensed in July. Called [facility] and they advised PA was valid till [...] Mcelroy MA * Telephone Encounter - Rakel Agotso LPN - 08/20/2024 8:27 AM EST is [...] to 09/25/24. High utilization for rec'd from [facility]. To pcp to sign. * Telephone Encounter - Sahara Moreno RN - 08/08/2024 11:47 AM EST Prior Authorization Documentation Prior authorization requested for the following medication: Medication: Blood sugar test strips - test 8 times a day- medically necessary for labile blood sugars (highs and lows) Provider: doo Company Name: [facility] Medicare Insurance Stat Phone number: [phone] Patient ID number: [id number] Pharmacy Name: [facility] Telephone number: [phone] documented in this encounterCity Hospital03-09-2025 Telephone encounter Note * Telephone Encounter [...] should be the next steps? Conferenced to [facility] cutting table operator first, [place], to speak with provider communications equipment operator for Renetta Mcgee CNP. GO TO THE EMERGENCY ROOM OR CALL 911 IF: * You develop any new symptoms * Your condition worsens * You are concerned or anxious about your condition for any other reason. If you have any questions, you can call Nurse director of field coordination back. [facility] Miscellaneous Notes* Telephone Encounter - Susana [...] should be the next steps? Conferenced to [facility] cutting table operator first, [place], to speak with provider communications equipment operator for Renetta Mcgee CNP. GO TO THE EMERGENCY ROOM OR CALL 911 IF: * You develop any new symptoms * Your condition worsens * You are concerned or anxious about your condition for any other reason. If you have any questions, you can call Nurse director of field coordination back. documented in this encounterCity Hospital03-07-2025 Telephone encounter Note * Telephone Encounter - Vibha Peña LPN - 09/21/2024 1:44 PM EST Denial rec'd for kroger test strips. Approval rec'd for one touch ultra strips [facility] Telephone encounter Note* Telephone Encounter - Sahara Moreno RN - 09/21/2024 1:22 PM EST Pt reports she went to [facility] ER last night with diarrhea. Reports [...] call back with any questions or concerns. [facility] Miscellaneous Notes* Telephone Encounter - Sahara Moreno RN - 09/21/2024 1:22 PM EST Pt reports she went to [facility] ER last night with diarrhea. Reports [...] any questions or concerns. documented in this encounterCity Hospital03-07-2025 Discharge summary Author Nik Nunez [facility] Note Date/Time September 21, 2024 7:09 am [facility] Medical Records Department [address] [place] [address] Emergency Department Summary 09/21/24 MR#: [id number] Acct: [id number] Name: ATTILA KIDD Rep #:[id number] : 1945 79 From: Nik Nunez MD [...] denies any abdominal pain. She is fatigued. [facility] Medical History THAIS (obstructive sleep apnea) Hyperglycemia [...] amiodarone Allergy Intermediate Swelling Verified 09/21/24 06:21 Staples And Derivatives Allergy Intermediate Hives Verified 09/21/24 [...] 09/21/24 06:21 Airborne (ascorbate sodium)) hydrocodone (From Kramer) Allergy Mild dystonia Verified 09/21/24 06:21 lysine [...] 06:21 hydrochlorothiazide Allergy Other Verified 09/21/24 06:21 Fgtxdlh-CGG-MuQ Reductase AdvReac Severe myalgias Verified 09/21/24 06:21 Inhibitor (Uvxrzbn-Mxe-Kox Reductase Inhibitor) amoxicillin (From Augmentin) AdvReac Other [...] 1-2 Days if not improving Print Language: Anguillan Disposition Disposition: Home, Self Care What to do if you have Problems For any increased pain, shortness of breath, bleeding, nausea or vomiting, chestpain, or any unexpected problems, contact your Primary Care Provider. Call [facility] ([phone]) or report to the closest Emergency Room. Call 911 if necessary. 09/21/24 0709 <Electronically signed by Nik Nunez MD> Cosigner Signature (if applicable): CC: Dr. Octavio Reza MD ~ Signed [facility] Work Phone: 1(847) 473-504203-07-2025 Discharge summary [facility] Medical Records Department [address] [place] [address] Emergency Department Summary 09/21/24 MR#: [id number] Acct: [id number] Name: ATTILA KIDD Rep #:[id number] : 1945 79 From: Nik Nunez MD [...] abdominal discomfort. Her blood sugar was in prw865m and 150s, and she was discharged with [...] denies any abdominal pain. She is fatigued. [facility] Medical History THAIS (obstructive sleep apnea) Hyperglycemia [...] amiodarone Allergy Intermediate Swelling Verified 09/21/24 06:21 Staples And Derivatives Allergy Intermediate Hives Verified 09/21/24 [...] 09/21/24 06:21 Airborne (ascorbate sodium)) hydrocodone (From Kramer) Allergy Mild dystonia Verified 09/21/24 06:21 lysine [...] 06:21 hydrochlorothiazide Allergy Other Verified 09/21/24 06:21 Gpspqlr-MMZ-QvY Reductase AdvReac Severe myalgias Verified 09/21/24 06:21 Inhibitor (Raywnpx-Knn-Stq Reductase Inhibitor) amoxicillin (From Augmentin) AdvReac Other [...] 1-2 Days if not improving Print Language: Anguillan Disposition Disposition: Home, Self Care What to do if you have Problems For any increased pain, shortness of breath, bleeding, nausea or vomiting, chestpain, or any unexpected problems, contact your Primary Care Provider. Call [facility] ([phone]) or report tothe closest Emergency Room. Call 911 if necessary. 09/21/24 0709 Cosigner Signature (if applicable): CC: Dr. Octavio Reza MD ~ Signed [facility]03-07-2025 Telephone encounter Note* Telephone Encounter - Tere Mcgrath RN - 09/21/2024 5:42 AM EST Reason for Call: Blood sugar 414 at 0530 today when she woke up, and 426 at time of call. Outcome: Call [employer] W[employer] Helper now. Established with [facility] Endocrinology Renetta Mcgee CNP. Patient and decline Endocrinology communications equipment operator provider page and prefer to go to [facility] ED now. Reason for Disposition Blood glucose > 400 mg/dL (22.2 mmol/L) Answer Assessment - Initial Assessment Questions 1. BLOOD GLUCOSE: Blood sugar 414 at 0530 today when she woke up, and 426 at time of call States blood sugar was fine at yesterdays [facility] ED diarrhea visit. States she ate a [...] she was Type 1 all my life.. [facility] - Type 1 DM. 6. INSULIN: [...] weakness. Protocols used: Diabetes - High Blood Uvael-DWMBC-SJ [facility] Miscellaneous Notes* Telephone Encounter - Tere Mcgrath RN - 09/21/2024 5:42 AM EST Reason for Call: Blood sugar 414 at 0530 today when she woke up, and 426 at time of call. Outcome: Call [employer] Hel[employer] now. Established with [facility] Endocrinology Renetta Mcgee CNP. Patient and decline Endocrinology communications equipment operator provider page and prefer to go to [facility] ED now. Reason for Disposition Blood glucose > 400 mg/dL (22.2 mmol/L) Answer Assessment - Initial Assessment Questions 1. BLOOD GLUCOSE: Blood sugar 414 at 0530 today when she woke up, and 426 at time of call States blood sugar was fine at yesterdays [facility] ED diarrhea visit. States she ate a [...] she was Type 1 all my life.. [facility] Type [facility] DM. 6. INSULIN: [...] weakness. Protocols used: Diabetes - High Blood Rpfkq-CVGFP-OE documented in this encounterCity Hospital03-06-2025 Discharge summary [facility] Medical Records Department [address] [place] [address] Emergency Department Summary 09/20/24 MR#: [id number] Acct: [id number] Name: ATTILA KIDD Rep #:[id number] : 1945 79 From: Lars Dahl DO [...] valuation management. Patient denies any sick contacts. [facility] Medical History THAIS (obstructive sleep apnea) Hyperglycemia [...] amiodarone Allergy Intermediate Swelling Verified 09/20/24 17:49 Staples And Derivatives Allergy Intermediate Hives Verified 09/20/24 [...] 09/20/24 17:49 Airborne (ascorbate sodium)) hydrocodone (From Kramer) Allergy Mild dystonia Verified 09/20/24 17:49 lysine [...] 17:49 hydrochlorothiazide Allergy Other Verified 09/20/24 17:49 Nnclkvs-DEZ-OlX Reductase AdvReac Severe myalgias Verified 09/20/24 17:49 Inhibitor (Isozzmh-Hqy-Yty Reductase Inhibitor) amoxicillin (From Augmentin) AdvReac Other [...] Patient follow commands though she was at [facility] year [id number] Skin: Warm, dry, intact no rashes or [...] 90.2 H Lymph % (Auto) 3.7 L Carver % (Auto) 4.5 Eos % (Auto) 1.2 [...] Sl. Cloudy Urine pH 6.0 Ur Specific [place] 1.025 Urine Protein 30 H Urine Glucose [...] of iterative reconstruction technique). Reading Location: [facility] Discharge Plan Triage Chief Complaint: General Illness [...] with your primary care physician Print Language: Anguillan Disposition Disposition: Home, Self Care What to do if you have Problems For any increased pain, shortness of breath, bleeding, nausea or vomiting, chestpain, or any unexpected problems, contact your Primary Care Provider. Call [facility] ([phone]) or report tothe closest Emergency Room. Call 911 if necessary. 09/20/24 2316 Cosigner Signature (if applicable): CC: Dr. Octavio Reza MD ~ Signed [facility]03-06-2025 Radiology Diagnostic study note [facility] Imaging Services [address] [place] [address] Abdomen/Pelvis W IV Cont ONLY MR#: [id number] Acct: [id number] Name: ATTILA KIDD Rep #: [id number] : 1945 F 79 From: Karen Fenton DO PCP: Dr. Octavio Reza MD Status: RE G ER Study:Abdomen/Pelvis W IV Cont ONLY Date of E xam: 09/20/24 Exam# [id number] Ordering Dr: Yeimi Dahl DO PROCEDURE: ABDOMEN/PELVIS [...] Reza MD; Dr. Lars Dahl DO ~ Automotive Lot Attendant: Signed [facility]03-06-2025 Telephone encounter Note* Telephone Encounter - Vibha Peña LPN - 09/20/2024 3:55 PM EST MORE QUESTIONS REC'D TO COMPLETE. THIS WAS DONE AND FAXED BACK. [facility] Telephone encounter Note* Telephone Encounter - Vibha Peña LPN - 09/20/2024 2:55 PM EST Was able to complete electronic PA for testing 8 times daily [facility]03-06[facility]2025 Discharge summary Author Lars Dahl [facility] Note Date/Time September 20, 2024 11:1 6pm [facility] Medical Records Department [address] [place] [address] Emergency Department Summary 09/20/24 MR#: [id number] Acct: [id number] Name: ATTILA KIDD Rep #:[id number] : 1945 79 From: Lars Dahl DO [...] valuation management. Patient denies any sick contacts. [facility] Medical History THAIS (obstructive sleep apnea) Hyperglycemia [...] amiodarone Allergy Intermediate Swelling Verified 09/20/24 17:49 Staples And Derivatives Allergy Intermediate Hives Verified 09/20/24 [...] 09/20/24 17:49 Airborne (ascorbate sodium)) hydrocodone (From Kramer) Allergy Mild dystonia Verified 09/20/24 17:49 lysine [...] 17:49 hydrochlorothiazide Allergy Other Verified 09/20/24 17:49 Slkqynz-AML-JqE Reductase AdvReac Severe myalgias Verified 09/20/24 17:49 Inhibitor (Xqhzynq-Uon-Zdx Reductase Inhibitor) amoxicillin (From Augmentin) AdvReac Other [...] Patient follow commands though she was at [facility] year Skin: Warm, dry, intact no rashes or [...] 90.2 H Lymph % (Auto) 3.7 L Carver % (Auto) 4.5 Eos % (Auto) 1.2 [...] Sl. Cloudy Urine pH 6.0 Ur Specific [place] 1.025 Urine Protein 30 H Urine Glucose [...] of iterative reconstruction technique). Reading Location: [facility] Discharge Plan Triage Chief Complaint: General Illness [...] with your primary care physician Print Language: Anguillan Disposition Disposition: Home, Self Care What to do if you have Problems For any increased pain, shortness of breath, bleeding, nausea or vomiting, chestpain, or any unexpected problems, contact your Primary Care Provider. Call [facility] ([phone]) or report to the closest Emergency Room. Call 911 if necessary. 09/20/24 8398 <Electronically signed by Lars Dahl DO> Cosigner Signature (if applicable): CC: Dr. Octavio Reza MD ~ Signed [facility] Work Phone: 1(823) 413-787002-27-2025 Telephone encounter Note* Telephone Encounter - Tierney Sun RN - 09/13/2024 2:55 AM EST Spouse calling regarding blood sugar 271 and wants to know what Insulin to give. Conferenced to [facility] [[phone] ] to speak with provider communications equipment operator for Renetta Mcgee CNP - Endocrinology. [facility]-27[facility]2025 Miscellaneous Notes* Telephone Encounter - Tierney Sun RN - 09/13/2024 2:55 AM EST Spouse calling regarding blood sugar 271 and wants to know what Insulin to give. Conferenced to [facility] [[phone] ] to speak with provider communications equipment operator for Renetta Mcgee CNP - Endocrinology. documented in this encounterCity Hospital02-25-2025 Telephone encounter Note * Telephone Encounter [...] Charis Lucas PharmD, BCACP Primary Care Clinical Admission Nurse Coordinator [facility] Work Phone: 1(686) 858-984502-25-2025 Miscellaneous Notes* Telephone Encounter - Charis Lucas [...] PharmD f/up on 11/06/24. Charis Lucas PharmD, [facility] Primary Care Clinical Admission Nurse Coordinator * Telephone Encounter - Darlene Mena RN [...] advise, Darlene Mena RN documented in this encounterCity Hospital02-24-2025 Telephone encounter Note * Telephone Encounter [...] assist her. Please review and advise, Darlene Mena, RN [facility]02-24-2025 History of Present illness Narrative* Charis Lucas, formerly [facility] - 09/10/2024 9:00 AM EST Primary Care [...] Lysine Itching Naprosyn [Naproxen] GI Upset Nausea Mmlsaen-Usy-Xvh Red* Myalgia Tylenol-Codeine #3 * Vomiting Ventolin [...] Reported on 05/23/2024) 6 Each 4 Insulin Owanka, Disposable, (BD ULTRA-FINE FADY PEN NEEDLE) 32 [...] Rx coverage: Payor: T MEDICARE / Plan: T MEDICARE PPO / [...] 11/28/24 Next PharmD visit: 11/06/24 Charis Lucas, ArmandoD, BCACP Primary Care Clinical Admission Nurse Coordinator documented in this encounterCity Hospital02-24-2025 [facility] Telephone encounter Note* Telephone Encounter - Parris Eckert RN - 09/06/2024 7:11 PM EST Pt called and is notified of providers results and instructions. Pt voices understanding. Parris Eckert RN [facility]-20[facility]2025 Miscellaneous Notes* Telephone Encounter - Parris [...] patient. Asmita Tapia RN documented in this encounterCity Hospital02-20-2025 Telephone encounter Note * Telephone Encounter [...] fish, edamame, ground flax seed and walnuts. [facility]2025 Telephone encounter Note* Telephone Encounter - [...] 10/15/24. Please advise patient. Asmita Tapia RN [facility]02-19-2025 Telephone encounter Note* Telephone Encounter - Mel Morin RN - 09/05/2024 2:32 PM EST Patient called back and the below results were given. Mel Morin RN [facility]02-19-2025 Miscellaneous Notes* Telephone Encounter - Mel [...] of August. Please call patient back at [phone]. She does not use MyChart routinely. documented in this encounterCity Hospital02-19-2025 Telephone encounter Note * Telephone Encounter - Norma Devlin RN - 09/05/2024 2:18 PM EST Call placed to Pt - unable to LM, voicemail box full. If Pt returns call to office, please relay the below notation per Renetta Mcgee CNP to her. Norma Devlin RN September 05, 2024 2:18 PM [facility]2025 Telephone encounter Note* Telephone Encounter - Renetta Mcgee APRN.FABIO - 09/05/2024 7:42 AM EST Please call the patient. Overall her labs are very good. A1C was 7.1 % and well controlled Cholesterol normal, however, LDL slightly elevated BUN very slightly elevated, make sure to drink 150 oz of water daily UNLESS on fluid restrictions Remainder of Labs [facility]02-18-2025 Telephone encounter Note* Telephone Encounter - Trudy Wang MA - 09/04/2024 3:15 PM EST Patient called in asking for lab results that were completed at the beginning of August. Please call patient back at [phone]. She does not use MyChart routinely. [facility]2025 Telephone encounter Note* Telephone Encounter - Octavio Reza MD - 08/24/2024 8:58 AM EST Reviewed with spouse. Sent pended RX. Discussed that gives logs to Marcela and she works with [facility] routinely. Discussed doing log for a month. Not sure if will need PA every month or just till deductible met. [facility]-03-2025 Telephone encounter Note* Telephone Encounter - Christine Mcelroy MA - 08/20/2024 4:24 PM EST Pharmacy dispense shows 200 test strips dispensed in July. Called [facility] and they advised PA was valid till 09/25/2024. Called spouse who advised rx for 200 strips was $230. Called fidel chavezrosy into this if going through with insurance or if spouse paid out pocket. Fidel advised is covered but until deductible met has to pay for strips. Spouse was called again and aware Leave TE so we can re-complete next month Christine Mcelroy MA [facility]02-03-2025 Telephone encounter Note* Telephone Encounter - Rakel Agosto LPN - 08/20/2024 8:27 AM EST is calling to check on status of prior auth. would like a call back. Rakel Agosto LPN [facility]2025 NoteChildren[facility]01-31-[facility] History of Present illness Narrative* Phoebe Carrion [...] or Scheduling Wellness Visits Care Gaps due: KEJodi Patient Contacted: Spoke to patient/parent/or legal guardian Patient identified by name and : Yes Care Gap/HCC/Scheduling Wellness actions taken: Patient declined: Patient will contact office directly to schedule Navigation Signature: Phoebe Carrion MA August 17, 2024 8:51 AM documented in this encounterCity Hospital01-28-2025 Telephone encounter Note * Telephone Encounter - Vibha Peña LPN - 08/14/2024 11:00 AM EST Form completed and faxed 08/10/24. [facility]-23-2025 Telephone encounter Note* Telephone Encounter - [...] to two eggs in the AM with [place] toast. Salads for lunch and dinner with [...] abdomen pain, bloating, fever, vomiting Protocols used: Leukybfpdxff-VJLCB-VA [facility]01-23-2025 Miscellaneous Notes* Telephone Encounter - Pattie [...] to two eggs in the AM with [place] toast. Salads for lunch and dinner with [...] abdomen pain, bloating, fever, vomiting Protocols used: Kiudwlbbocry-DXQTJ-BX documented in this encounterCity Hospital01-22-2025 Telephone encounter Note * Telephone Encounter - Vibha Peña LPN - 08/08/2024 1:07 PM EST Unable to complete electronically. Previously approved from 09/26/23 to 09/25/24. High utilization for rec'd from [facility]. To pcp to sign. [facility]01-22-2025 Telephone encounter Note* Telephone Encounter - Sahara Moreno RN - 08/08/2024 11:47 AM EST Prior Authorization Documentation Prior authorization requested for the following medication: Medication: Blood sugar test strips - test 8 times a day- medically necessary for labile blood sugars (highs and lows) Provider: [employer] Name: [employer] Phone number: [phone] Patient ID number: [id number] [facility]acy Name: [facility] Telephone number: [phone] [facility]01-15-2025 Telephone encounter Note* Telephone Encounter - Pattie [...] this time. Closing TE. Pattie Giles RN [facility]01-15-2025 Miscellaneous Notes* Telephone Encounter - Pattie Giles [...] TE. Pattie Giles RN documented in this encounterCity Hospital01-14-2025 History of Present illness Narrative* Karonniranjan Charis, formerly [facility] - 07/31/2024 9:00 AM EST Primary Care [...] Events: - 07/03/24 ABIMBOLA visit (with Lydia Harjinder) - no med changes HPI: On speaker [...] dose of Lantus than prescribed *had 2 party plan sales host/hostess cupcakes to bring up BGs felt readings [...] 289/8 278 273 255 185 168 193/22 10 153 169/4 211 213/6 201 198/6 180 [...] Lysine Itching Naprosyn [Naproxen] GI Upset Nausea Bcmrmcc-Ihw-Gcx Red* Myalgia Tylenol-Codeine #3 * Vomiting Ventolin [...] Reported on 05/23/2024) 6 Each 4 Insulin Owanka, Disposable, (BD ULTRA-FINE FADY PEN NEEDLE) 32 [...] Adherence: denies missed doses. Rx coverage: Payor: [facility] MEDICARE / Plan: [facility] MEDICARE PPO / Product Type: PPO / [...] visit: 11/28/24 Next PharmD visit: 09/10/24 Charis Lucas PharmD, BCACP Primary Care Clinical Admission Nurse Coordinator documented in this encounterCity Hospital01-14-2025 NoteChildren[facility]01-10-2025 Telephone encounter Note* Telephone Encounter - Pattie [...] by EC. Patient requests call back at [phone] once sent. Pattie Giles RN July 27, 2024 2:28 PM [facility]-2025 Miscellaneous Notes* Telephone Encounter - Pattie [...] by . Patient requests call back at [phone] once sent. Pattie Giles RN July 27, 2024 2:28 PM documented in this encounterCity Hospital01-02-2025 Telephone encounter Note * Telephone Encounter - Ritika Santos LPN - 07/19/2024 4:01 PM EST Patient and were given providers instructions and verbalized understanding. [facility]-02-2025 Miscellaneous Notes* Telephone Encounter - Ritika [...] excerpted from protocol: Diabetes - High Blood Abtbs-KPCTG-ZP TREATMENT : HOME CARE - LIQUIDS: * [...] possible. Asmita Tapia RN documented in this encounterCity Hospital01-02-2025 Telephone encounter Note * Telephone Encounter - Lydia Grande APRN.CNS - 07/19/2024 3:45 PM EST Agree with the home treatment measures noted below and her Insulin Sliding Scale instructions for dinner. She can also walk or other activity to help bring her glucose level down. [facility]01-02-2025 Telephone encounter Note* Telephone Encounter - Asmita [...] excerpted from protocol: Diabetes - High Blood Eywxw-TQMYK-ZK TREATMENT : HOME CARE - LIQUIDS: * [...] well today. If possible. Asmita Tapia RN [facility]12-30-2024 Telephone encounter Note* Telephone Encounter - Yvette Cohen LPN - 07/16/2024 8:38 AM EST Pt calling for refills. Reviewed meds requested by pt. [facility] is showing there are refills at [facility]. Pt believes she is looking at an old bottle. She will check with pharm and call if any problems. Yvette Cohen LPN [facility]-30-2024 Miscellaneous Notes* Telephone Encounter - Yvette Cohen LPN - 07/16/2024 8:38 AM EST Pt calling for refills. Reviewed meds requested by pt. Epic is showing there are refills at [facility]. Pt believes she is looking at an old bottle. She will check with pharm and call if any problems. Yvette Cohen LPN documented in this encounterCity Hospital12-17-2024 Instructions* Patient Instructions* Lydia Grande APRN.CNS - 07/03/2024 3:12 PM EST Continue with your usual blood pressure medications. Check your blood pressure once daily around noon. If your blood pressure is greater than 150/80 take an additional 1/2 tablet of 50 mg metoprolol tartrate documented in this encounterCity Hospital12-17-2024 NoteChildren'[facility]12-17-2024 History of Present illness Narrative* Lydia Grande APRN.CNS - 07/03/2024 2:00 PM EST SUBJECTIVE: DTaP,Tdap,Td Vaccine(1 - Tdap) Never done RSV Vaccine(1 - 1-dose 75+ series) Never done Diabetic Foot Exam due on 10/27/2021 BP Controlled (<130/80) due on 05/11/2022 Dilated Retinal Exam due on 06/29/2024 NILESH Kidd is a 78 year old female. [...] Remission (Hcc) Nocturnal Hypoxemia Presents today for [facility] ER visit follow-up. She was seen [...] 09/01/2023 144/74 06/23/2023 122/[address] Marin V6dgfein. [facility], Dr. Brasher. DIABETES MELLITUS: Without report [...] HENT: Head: Normocephalic and atraumatic. Mouth/Throat: Lips: [place]. Mouth: Mucous membranes are moist. Eyes: Conjunctiva/sclera: [...] Lysine Itching Naprosyn [Naproxen] GI Upset Nausea Korenex-Tax-Wok Red* Myalgia Tylenol-Codeine #3 * Vomiting Ventolin [...] then wash off in the morning Insulin Owanka, Disposable, (BD ULTRA-FINE FADY PEN NEEDLE) 32 [...] Level: 4 - Moderate documented in this encounterCity Hospital12-16-2024 Telephone encounter Note * Telephone Encounter - Octavio Reza MD - 07/02/2024 5:08 PM EST Noted. Will see how she is doing tomorrow when sees Lydia. [facility]-16[facility]2024 Miscellaneous Notes* Telephone Encounter - Octavio [...] you. Asmita Tapia RN documented in this encounterCity Hospital12-16-2024 Telephone encounter Note * Telephone Encounter [...] severe symptoms as discussed. Asmita Tapia RN [facility]12-16-2024 Telephone encounter Note* Telephone Encounter - Asmita [...] any severe sx's again. Asmita Tapia RN [facility]12-15-2024 Telephone encounter Note* Telephone Encounter - Octavio Reza MD - 07/01/2024 5:00 PM EST No significant growth on the urine culture See whether symptoms improved with taking macrobid. If symptoms persist despite taking antibiotic and despite urine cultures not growing any significant bacteria, consider follow up with urology for further evaluation. [facility]12-13-2024 Telephone encounter Note* Telephone Encounter - Asmita [...] when able. Thank you. Asmita Tapia RN [facility]-12-2024 Telephone encounter Note* Telephone Encounter - Asmita Tapia RN - 06/28/2024 8:58 AM EST Patient notified. Asmita Tapia RN [facility]-12-2024 Miscellaneous Notes* Telephone Encounter - Asmita [...] advise patient on her spouse's cell #: [phone]. Thank you. documented in this encounterCity Hospital12-11-2024 Telephone encounter Note * Telephone Encounter [...] 5 days. Authorizing Provider: OCTAVIO REZA MD [facility] Telephone encounter Note* Telephone Encounter - Madeline Quintana LPN - 06/27/2024 5:59 PM EST Copy of message printed and given to PCP to address. Madeline Quintana LPN [facility] Telephone encounter Note* Telephone Encounter - Palma Gibson LPN - 06/27/2024 9:10 AM EST Patient calling, checking on status of message. Please advise. [facility]12-10-2024 Telephone encounter Note* Telephone Encounter - Asmita [...] advise patient on her spouse's cell #: [phone]. Thank you. [facility] History of Present illness Narrative* Rama Mckeon MA - 06/21/2024 9:23 AM EST POPULATION HEALTH NAVIGATION OUTREACH Action/FYI June 21, 2024 AWV INITIATIVE Reason for Outreach Care Gap/HCC or Scheduling Wellness Visits Care Gaps due: Medicare Annual Wellness Visit Patient Contacted: Unable or unnecessary to reach patient: Flipped existing appointment Updated appointment notes Navigation Signature: Rama Mckeon MA June 21, 2024 9:23 AM documented in this encounterCity Hospital12-03-2024 Telephone encounter Note * Telephone Encounter [...] Mena RN June 19, 2024 9:31 AM [facility] Miscellaneous Notes* Telephone Encounter - Darlene [...] 19, 2024 9:31 AM documented in this encounterCity Hospital12-03-2024 History of Present illness Narrative* Charis Lucas formerly [facility] - 06/19/2024 9:00 AM EST Primary Care [...] Lysine Itching Naprosyn [Naproxen] GI Upset Nausea Rqoolfr-Bld-Bym Red* Myalgia Tylenol-Codeine #3 * Vomiting Ventolin [...] Reported on 05/23/2024) 6 Each 4 Insulin Owanka, Disposable, (BD ULTRA-FINE FADY PEN NEEDLE) 32 [...] Rx coverage: Payor: T MEDICARE / Plan: [facility] MEDIC[facility] PPO / Product Type: PPO / [...] Charis Lucas, PharmD, BCACP Primary Care Clinical Admission Nurse Coordinator documented in this encounterCity Hospital12-03-2024 [facility]-27-2024 Evaluation note* Diagnosis Onset Date Resolution Status Admit Date Abnormal stress test acute Nove mbbinta 2023 2:00pm THAIS (obstructive sleep apnea) acute June 13, 2024 2:00pm Essential hypertension chronic No vember 2023 2:00pm Paroxysmal SVT (supraventricular tachycardia) chronic N ovember 2023 2:00pm [facility] Work Phone: 1(728) 576-395711-25-2024 Instructions* Patient Instructions* Octavio Reza MD - 06/11/2024 10:39 AM EST - Switch from Bactrim to Macrobid for your bladder infection; prescription sent to [facility]. - Take 22 units of insulin glargine at bedtime consistently. - Treat any blood sugar readings below 70 with fast-acting glucose (e.g., glucose tablets, sugary candy, 4 ounces of juice, or Gatorade). - Monitor your blood sugar levels regularly and record them. - Refills provided for Zolpidem, albuterol, amlodipine, metoprolol, and Symbicort; tack picker medications from [facility] as needed. - Elevate your feet when possible and continue wearing compression stockings to manage swelling. - Continue riding your bicycle for exercise. - Next follow-up appointment in 4 months. documented in this encounterCity Hospital11-25-2024 NoteChildren[facility]11-25-2024 History of Present illness Narrative* Octavio Reza MD - 06/11/2024 10:03 AM EST This note was created using 99testster. Subjective Attila Kidd is a 78 year old female. Patient presents with: 4 month follow up: [facility] ER 06/08/24 follow up for UTI. [...] DM, presenting for a 4- month follow-up [facility] ER visit for a UTI. [...] (Patient not taking: Reported on 05/23/2024) Insulin Owanka, Disposable, (BD ULTRA-FINE FADY PEN NEEDLE) 32 [...] and 24-hour Holter monitor. - Follow-up with heater engineer helper Dr. Bosch scheduled for Tuesday. # Essential hypertension (I10) - Managed with amlodipine and ramipril. - Refills ordered for both medications. - Blood pressure well-controlled. # Stasis edema of both lower extremities (I87.303) - Mild edema noted. - Continues to use compression stockings and elevate legs. - Encouraged regular leg exercises and cycling to promote venous return. Octavio Reza MD documented in this encounterCity Hospital11-20-2024 NoteChildren[facility]11-20-2024 History of Present illness Narrative* Federica Alonzo RN - 06/06/2024 11:47 AM EST Images from the original note were not included. [facility] Care Path Telephonic Outreach Provider Action/FYI Patient identified by Name and Date of . Patient refused. Patient declines to verify identity, questioning why she needs to provide when she was the one who was called. Attempted to explain purpose of calls. Patient states she will reach out to pcp office. Program Details Chronic Disease Management Status: Declined [facility] Patient declined - After starting program Effective [...] 06, 2024 11:52 AM documented in this encounterCity Hospital11-15-2024 Telephone encounter Note * Telephone Encounter - Ritika Santos LPN - 06/01/2024 9:46 AM EST Patients notified of providers message and verbalized understanding [facility]11-15-2024 Miscellaneous Notes* Telephone Encounter - Ritika [...] apt on 06-11-24. Please advise spouse. PH: [phone] Cayla Lynne LPN documented in this encounterCity Hospital11-15-2024 Telephone encounter Note * Telephone Encounter - Lydia Grande APRN.MADELIN - 06/01/2024 8:39 AM EST Looks like labs are due in July / . [facility]11-14-2024 Telephone encounter Note* Telephone Encounter - Cayla Lynne LPN - 05/31/2024 8:05 AM EST Spouse called to check and see if lab work is needed for pt before her apt on 06-11-24. Please advise spouse. PH: [phone] Cayla Lynne LPN [facility]11-08-2024 Miscellaneous Notes* Telephone Encounter - Norma [...] 25, 2024 10:56 AM documented in this encounterCity Hospital11-08-2024 Telephone encounter Note * Telephone Encounter [...] Devlin RN May 25, 2024 10:56 AM [facility]20[facility] Miscellaneous Notes* Telephone Encounter - Gloria [...] took 5 units of Novolog with lunch 1918 056 0675 84 3089 938 9331 190 Took 6 units of Novolog with supper 4011 112 3209 155 took new dose of 20 units Lantus : 0423 123 0600 163 took 4 units of Novolog with breakfast 0940 193 1113 218 took 6 units of Novolog with lunch 3835 137 6072 230 took 7 units of Novolog with [...] fever, difficulty breathing, dizziness, weakness, or vomiting. she is urinating more often, but has been drinking a lot of water. They thought that when your blood sugar is high, you should drink lots of water. 9. :n/a Protocols used: Diabetes - High Blood Yoynv-YXKTP-HN * Telephone Encounter - Trudy Wang MA - 05/25/2024 8:58 AM EST Patient and contacted the office to report that she was in the ED early this morning. Patient was not able to sleep last night. Blood sugar reading at 2:15 am was 253 and the patient was feeling heart palpitations so her took her to [facility]. Dinner last night was a [...] call back on the husbands phone at [phone]. documented in this encounterCity Hospital11-08-2024 Telephone encounter Note * Telephone Encounter [...] took 5 units of Novolog with lunch 7685 049 1826 84 5127 783 8900 190 Took 6 units of Novolog with supper 3078 571 5227 155 took new dose of 20 units Lantus : 0423 123 0600 163 took 4 units of Novolog with breakfast 0940 193 1113 218 took 6 units of Novolog with lunch 3283 958 4014 230 took 7 units of Novolog with [...] :n/a Protocols used: Diabetes - High Blood Eeczg-PKUBH-DY [facility]11-08-2024 Telephone encounter Note* Telephone Encounter - Trudy Wang MA - 05/25/2024 8:58 AM EST Patient and contacted the office to report that she was in the ED early this morning. Patient was not able to sleep last night. Blood sugar reading at 2:15 am was 253 and the patient was feeling heart palpitations so her took her to [facility]. Dinner last night was a [...] call back on the husbands phone at [phone]. [facility]11-06-2024 History of Present illness Narrative* Renetta Mcgee APRN.TITLE CURATIVE SPECIALIST - 05/23/2024 12:45 PM EST OFFICE VISIT [...] are doing very well Working with ENDO HEAD OF LOSS PREVENTION Sugars have run mostly between 105-177 with [...] 1 capsule by mouth once daily. Insulin Owanka, Disposable, (BD ULTRA-FINE FADY PEN NEEDLE) 32 [...] Lysine Itching Naprosyn [Naproxen] GI Upset Nausea Ycxbulf-Xol-Vzu Red* Myalgia Tylenol-Codeine #3 * Vomiting Ventolin [...] (MNT) Renetta Mcgee CNP documented in this encounterCity Hospital11-05-2024 History of Present illness Narrative* Phoebe Carrion MA - 05/22/2024 2:03 PM EST POPULATION HEALTH NAVIGATION OUTREACH Action/I Value Hub Outreach Navigator: Patient requesting to cancel 06/15 sleep medicine appointment. Patient will reschedule at a later date, no need to call. Thank you. Sravanihart Active: Yes Outreach to patient Appointment cancelled [...] is High Blood Pressure Disposition Based on scientist engineer, the following disposition is advised: No action needed Federica Alonzo RN May 22, 2024 10:53 AM documented in this encounterCity Hospital10-25-2024 Telephone encounter Note * Telephone Encounter - [...] the case that they need advice through [facility]. Norma Devlin RN May 11, 2024 8:57 AM [facility] Miscellaneous Notes* Telephone Encounter - Norma [...] the case that they need advice through [facility]. Norma Devlin RN May 11, 2024 [...] has only been eating prepackaged salads from [facility]. Patient is concerned about blood sugars going [...] again. Please reach out to patient at [phone]. documented in this encounterCity Hospital10-24-2024 Telephone encounter Note * Telephone Encounter - Renetta Mcgee APRN.FABIO - 05/10/2024 6:13 PM EDT Please give [...] - 4 units 301-350 - 5 units [facility] Telephone encounter Note* Telephone Encounter - [...] has only been eating prepackaged salads from [employer]. Patient is concerned about blood sugars going [...] again. Please reach out to patient at [phone]. [facility] Telephone encounter Note* Telephone Encounter - Mel Morin RN - 05/10/2024 12:15 PM EDT Patient called and notified of the below recommendations. Mel Morin RN [facility]-24-[facility] Miscellaneous Notes* Telephone Encounter - Mel [...] scale. Mel Morin RN documented in this encounterCity Hospital10-24-2024 Telephone encounter Note * Telephone Encounter - Renetta Mcgee APRN.CNP - 05/10/2024 9:47 AM EDT Noted, agree that infection can increase blood sugars Given patient age, I am not concerned about her acutely elevated blood sugar, tenzin with the infection. Use sliding scale as directed. [facility] Telephone encounter Note* Telephone Encounter - [...] in her sliding scale. Mel Morin RN [facility]10-21-2024 History of Present illness Narrative* Davon Wolfe APRN.FABIO - 05/07/2024 3:17 PM EDT SUBJECTIVE Attila Kidd is a 78 year old female here today for a check up on her medical problems. Chief Complaint Patient presents with: Recheck: [facility] ER 10/19/24 shortness of breath with chest discomfort was note arrhythmia Dental Problem: questions a tooth abscess. HPI Attila Kidd is a 78 year old female. She is an established patient of Octavio Reza MD. Here today for ER follow up. Seen in the ER at [facility] on 05/04/2024. Went to ER for [...] (Patient not taking: Reported on 05/07/2024) Insulin Owanka, Disposable, (BD ULTRA-FINE FADY PEN NEEDLE) 32 [...] Lysine Itching Naprosyn [Naproxen] GI Upset Nausea Uczqeuw-Juj-Oef Red* Myalgia Tylenol-Codeine #3 * Vomiting Ventolin [...] appointment.. Davon Wolfe APRN-FABIO documented in this encounterCity Hospital10-08-2024 History of Present illness Narrative* Charis Lucas formerly [facility] - 04/24/2024 9:30 AM EDT /Primary Care [...] Lysine Itching Naprosyn [Naproxen] GI Upset Nausea Iimgzyf-Hbg-Wfj Red* Myalgia Tylenol-Codeine #3 * Vomiting Ventolin [...] 1 capsule by mouth once daily. Insulin Owanka, Disposable, (BD ULTRA-FINE FADY PEN NEEDLE) 32 [...] Rx coverage: Payor: T MEDICARE / Plan: [facility] MEDIC[facility] PPO / Product Type: PPO / [...] Charis Lucas, Willie, BCACP Primary Care Clinical Admission Nurse Coordinator documented in this encounterCity Hospital10-03-2024 History of Present illness Narrative* Federica [...] 19, 2024 1:25 PM documented in this encounterCity Hospital10-02-2024 History of Present illness Narrative* Opal Joseph, RT(R) - 04/18/2024 9:40 AM EDT Radiology [...] PATIENT PRESENTS WITH AN IMPLANTABLE OR ATTACHED POLICE LIEUTENANT PRECINCT: No RADIOLOGY DEPARTMENT: General X-ray: Exam(s) Completed: Chest X-Ray PERIPHERAL IV DATA: Not applicable SIGNED BY: RT Jose(R) April 18, 2024 9:50 AM documented in this encounterCity Hospital10-02-2024 History of Present illness Narrative* Smiley Banda APRN.TITLE CURATIVE SPECIALIST - 04/18/2024 9:30 AM EDT This note was created using [employer]Builder Studioriter. Subjective Attila Kidd is a 78 year old female. 78 year old female with PMH HTN, hyperlipidemia, SVT, asthma, GERD, DM, presents for illness. Acute onset 2 days ago +cough +sneezing +lymph nodes Denies sore throat Denies eye complaints Denies fever or chills Denies body aches or fatigue Denies dyspnea Denies CP Denies tobacco usage The history is provided by the patient. No loom mechanic was used. Cough This is a new [...] [Amiloride-Hydrochlorothiazide], Oseltamivir, Doxycycline, Escitalopram, Lysine, Naprosyn [Naproxen], Nuhyxrm-Fnn-Org Reductase Inhibitors, Tylenol-Codeine #3 [Acetaminophen-Codeine], and Ventolin [...] 1 capsule by mouth once daily. Insulin Owanka, Disposable, (BD ULTRA-FINE FADY PEN NEEDLE) 32 [...] INFLUENZA A/B & RSV PCR, ROUTINE Smiley Banda APRN.TITLE CURATIVE SPECIALIST documented in this encounterCity Hospital09-24-2024 History of Present illness Narrative* Charis Lucas, formerly [facility] - 04/10/2024 9:00 AM EDT Primary Care [...] Lysine Itching Naprosyn [Naproxen] GI Upset Nausea Gbfbtnu-Dyo-Wwg Red* Myalgia Tylenol-Codeine #3 * Vomiting Ventolin [...] (Patient not taking: Reported on 01/12/2024) Insulin Owanka, Disposable, (BD ULTRA-FINE FADY PEN NEEDLE) 32 [...] Adherence: denies missed doses. Rx coverage: Payor: [facility] MEDICARE / Plan: [facility] MEDICARE PPO / Product Type: PPO / [...] 05/23/24 Next PharmD visit: 04/24/24 Charis Lucas, PharmD, BCACP Primary Care Clinical Admission Nurse Coordinator documented in this encounterCity Hospital09-23-2024 History of Present illness Narrative* Renetta Mcgee APRN.CNP - 04/09/2024 10:51 AM EDT Patient's request for medication is as follows Requested Prescriptions Signed Prescriptions Disp Refills glucagon (GVOKE HYPOPEN 1-PACK) 1 mg/0.2 mL auto-injector 0.2 mL 3 Sig: Inject 1 mg subcutaneously as needed. Order entered - please phone pharmacy and notify patient. Renetta Mcgee APRN.CNP documented in this encounterCity Hospital09-23-2024 History of Present illness Narrative* Sergo Perez, MEMO - 04/09/2024 10:00 AM EDT [facility] Medical Nutrition Therapy Visit Type: In-person Patient [...] loss Blood sugar regulation Diet History: Breakfast: [place], eggs, coffee Lunch: salad with turkey deli [...] - Physical Activity options: stationary bike - Stylechie 2 CGM ordered however pt not currently [...] (Patient not taking: Reported on 01/12/2024) Insulin Owanka, Disposable, (BD ULTRA-FINE FADY PEN NEEDLE) 32 [...] lbs, 10% weight loss = 0 lbs [place] body weight: 67.4 kg (148 lb 7.7 [...] by: Sergo Perez RD documented in this encounterCity Hospital09-18-2024 History of Present illness Narrative* Federica Alonzo RN - 04/04/2024 10:58 AM EDT CDM ENROLLMENT Provider Action / FYI: Pt given the [facility] [employer] phone number. Educated on the [...] were you homeless or living in a alf (including now)?: No Transportation Needs In the [...] has the electric, gas, oil, or water [employer] threatened to shut off services in your [...] ADLs, Fall Risk, SDOH Disposition Based on scientist engineer, the following disposition is advised: No action needed Federica Alonzo RN April 04, 2024 11:15 AM documented in this encounterCity Hospital09-13-2024 Instructions* Patient Instructions* Christine Bianchi MD - 03/30/2024 2:37 PM EDT SERVICE DATE: 03/30/2024 SERVICE TIME: 1:40 PM Oral Exhaled Nitric Oxide measurement: 25.0 (ppb) Oral Exhaled Nitric Oxide measurement (Previous Encounters) Test Date Oral Exhaled Nitric Oxide (ppb) 06/23/2023 16.0 04/30/2021 45.0 (A) 02/23/2019 24.0 04/18/2017 56.0 (A) documented in this encounterCity Hospital09-13-2024 History of Present illness Narrative* Christine Bianchi MD - 03/30/2024 2:15 PM EDT Images from the original note were not included. . [facility] [place] Note Patient name: Attila Kidd PCP: Octavio Reza MD CC: Follow-up asthma HPI: Attila Kidd 78 year old female former 91-ljhf-zuxw smoker with PMH significant for morbid obesity, HTN, HLD, GERD, DM2, THAIS noncompliant with BiPAP usage, nocturnal oxygen need, asthma, SVT/palpitations. Recently seen by TITLE CURATIVE SPECIALIST for an acute visit for worsening asthma symptoms. Baseline inhaledtherapy with generic Symbicort and as needed albuterol. She had previously been on Advair but complained of significant palpitations. At [facility], she continued to have issues with [...] Lysine Itching Naprosyn [Naproxen] GI Upset Nausea Kqilwuw-Mbk-Fae Red* Myalgia Tylenol-Codeine #3 * Vomiting Ventolin [...] (Patient not taking: Reported on 01/12/2024) Insulin Owanka, Disposable, (BD ULTRA-FINE FADY PEN NEEDLE) 32 [...] and supplemental oxygen Christine Bianchi MD [facility] documented in this encounterCity Hospital09-13-2024 Procedure note* Zora Cortes RPSUNITA - 03/30/2024 1:40 PM EDTAssociated Order(s): NITRIC [...] DATE: March 30, 2024 TIME: 1:40 PM [facility] Procedure note* Zora Cortes RPFT - [...] 2024 TIME: 1:40 PM documented in this encounterCity Hospital09-13-2024 Nurse Note* Elina Sarkar LPN - 03/30/2024 1:39 PM EDT Intake information documented in the prior visit with JAI Matthew today. [facility] History of Present illness Narrative* Zora Cortes RPFT - 03/30/2024 1:39 PM EDT PULM FUNCTION: Provider: Christine Bianchi MD Assisting Tech: Zora Cortes RPFT Exhaled Nitric Oxide: 1 documented in this encounterCity Hospital09-13-2024 Nurse Note* Elina Sarkar LPN - 03/30/2024 1:39 PM EDT Intake information documented in the prior visit with JAI Matthew today. documented in this encounterCity Hospital09-06-2024 Telephone encounter Note * Telephone Encounter [...] Mena RN March 23, 2024 3:08 PM [facility] Miscellaneous Notes* Telephone Encounter - Darlene [...] 23, 2024 3:08 PM documented in this encounterCity Hospital09-05-2024 Telephone encounter Note * Telephone Encounter - Sergo Perez RD - 03/22/2024 8:48 AM EDT Pt [facility] has not set up Sav[employer] to be able to conduct virtual video visit today. [facility] is not interested in getting set up as notes difficulty navigating computer. Pt interested rescheduling appointment for in-person. Appointment to be rescheduled for April 09 at 10 am. [facility] Work Phone: 1(424) 567-527609-05-2024 Miscellaneous Notes* Telephone Encounter - Sergo Perez RD - 03/22/2024 8:48 AM EDT Pt states has not set up Sav[employer] to be able to conduct virtual video visit today. States is not interested in getting set up as notes difficulty navigating computer. Pt interested rescheduling appointment for in-person. Appointment to be rescheduled for April 09 at 10 am. documented in this encounterCity Hospital08-29-2024 Telephone encounter Note * Telephone Encounter - Elina Sarkar LPN - 03/15/2024 9:50 AM EDT Called [facility]. Flavio HAIDER authorized per Quang Morin. Approval code [id number]. Approval through 07/17/24. Attempted to contact Elijah but call was disconnected. Detailed message left on patient's phone re: same. Elina Sarkar LPN [facility] Miscellaneous Notes* Telephone Encounter - Elina Sarkar LPN - 03/15/2024 9:50 AM EDT Called [facility]. Nabilcort VITALY authorized per Quang Morin. Approval code [id number]. Approval through 07/17/24. Attempted to contact Elijah [...] last week on 03/07. documented in this encounterCity Hospital08-29-2024 Telephone encounter Note * Telephone Encounter - Kenisha Maldonado MA - 03/15/2024 8:30 AM EDT , Elijah calling and states his was given 2 generic inhalers and did not work. Symbicortis the only inhaler that works for her. asking if her Symbicort has been authorized? She was seen last week on 03/07. [facility] History of Present illness Narrative* Lydia Manuel RN - 03/14/2024 8:28 AM EDT [facility] NURSE - CHART REVIEW Provider MIGUE Jernigan 02/13/2023 presented to non [facility] ED with complaint of chest pain and shortness of breath with exertion. Pt identified by name and . Reason for Review: Payor request Patient Attributed To: QAE Payer: [employer] Chart Review For: Utilization: ED Total Patient High CostTotal Patient High Cost {HIGH COST:409040) Quality measure review Payor request for assistance Action Taken: Data submitted to payor Lydia Manuel RN March 14, 2024 8:28 AM documented in this encounterCity Hospital08-26-2024 Note* Addendum Note - Renetta Mcgee APRN.CNP - 03/12/2024 10:13 AM EDTAddended by: RENETTA MCGEE on: 03/12/2024 10:13 AM Modules accepted: Orders [facility] Telephone encounter Note* Telephone Encounter - Renetta Mcgee APRN.CNP - 03/12/2024 10:13 AM EDT Patient's request for medication is as follows Requested Prescriptions Signed Prescriptions Disp Refills insulin glargine (LANTUS SOLOSTAR U-100 INSULIN) 100 unit/mL (3 mL) 27 mL 3 Sig: Inject 27 units once daily Authorizing Provider: RENETTA MCGEE Order entered - please phone pharmacy and notify patient. Renetta Mcgee APRN.CNP [facility] Miscellaneous Notes* Addendum Note - Renetta [...] in about her insulin glargine, she states [facility] said it wasn't sent in correctly. I lether know it was sent by her endocrinologists office and she would need to call them if they were handling the medication. Pt is going to called Trevin Mcgee NP documented in this encounterCity Hospital08-26-2024 Telephone encounter Note * Telephone Encounter - Radha Lacy RN - 03/12/2024 8:59 AM EDT Patient called, verified name and date of . She advised that she is on her last bottle of insulin glargine. She called [facility] for a refill and they stated she does not have any refills left, but when she saw Marcela in November, she was given 11 refills. Could someone please assist her? Please call patient on her 's cell phone, , she is having problems with hers. Radha Lacy RN March 12, 2024 9:02 AM [facility] Miscellaneous Notes* Telephone Encounter - Radha [...] 12, 2024 9:02 AM documented in this encounterCity Hospital08-26-2024 Telephone encounter Note * Telephone Encounter - Parris Eckert RN - 03/12/2024 8:51 AM EDT Pt called in about her insulin glargine, she states Fidel said it wasn't sent in correctly. I lether know it was sent by her endocrinologists office and she would need to call them if they were handling the medication. Pt is going to called Trevin Mcgee PRODUCT DESIGNER [facility] History of Present illness Narrative* Ivy, Radha Shoemaker APRN.TITLE CURATIVE SPECIALIST - 03/07/2024 11:00 AM EDT Images from [...] palpitations while on Advair and presented to [facility] ED on 03/02. Advair was stopped [...] Lysine Itching Naprosyn [Naproxen] GI Upset Comment:Nausea Ycnekgr-Jtv-Qja Red* Myalgia Tylenol-Codeine #3 * Vomiting Ventolin [...] Lantus, not Basaglar per patient preference Insulin Owanka (Disposable) 32 gauge x 5/32 Commonly known [...] 20:53 EDT Reading Location ID and State: [facility] / [place] Tel [phone], Service support , Review of Systems Constitutional: [...] exam - review of CT report from [facility] ED 03/02 without sign of pulmonary edema/acute illness - resume Symbicort and monitor symptoms F/u scheduled with Dr. Bianchi 03/30 Portions of this documentation were copied and pasted from previous office visit notes in order to provide a cohesive continuity of the history. The note has been reviewed and edited and updated as necessary. Radha Haynes APRN.FABIO I spent a total of 39 minutes on the date of the service which included preparing to see the patient, [id number] patient care, completing clinical documentation, obtaining and/or reviewing separately obtained history, performing a medically appropriate examination, and counseling and educating the patient/family/caregiver. documented in this encounterCity Hospital08-21-2024 Telephone encounter Note * Telephone Encounter - Elina Sarkar LPN - 03/07/2024 9:04 AM EDT Appt scheduled. Elina Sarkar LPN [facility] Miscellaneous Notes* Telephone Encounter - Elina [...] today. Patient can be contacted back at [phone]. * Telephone Encounter - Trudy Wang MA [...] Octavio Reza MD routed this conversation to [facility] Octavio Leiva MD 03/06/24 8:29 PM Note Stop the Breyna inhaler as well. Reviewed that had diagnosis of mild persistent asthma Since has had problems with several inhalers tried, can see how her breathing does without med to replace Symbicort. Follow up with district medical examiner if has recurrence of cough or wheezing. 03/06/24 5:04 PM Bettina Murray LPN routed this conversation to Octavio Reza MD Parsons, Lori, LPN 03/06/24 5:04 PM Note Pt reports she has been using generic advair, was sent to pharm 02/20/24. Pt states she started feeling she was having an erratic heart beat & she had felt ' a let down feeling' with her heart. Pt was seen at [facility] ED on 03/02/24 & states she [...] advise. Bettina Murray LPN documented in this encounterCity Hospital08-21-2024 Telephone encounter Note * Telephone Encounter [...] today. Patient can be contacted back at [phone]. [facility] Telephone encounter Note* Telephone Encounter - [...] Octavio Reza MD routed this conversation to [facility] Octavio Leiva MD 03/06/24 8:29 PM Note Stop the Breyna inhaler as well. Reviewed that had diagnosis of mild persistent asthma Since has had problems with several inhalers tried, can see how her breathing does without med to replace Symbicort. Follow up with district medical examiner if has recurrence of cough or wheezing. [...] with her heart. Pt was seen at [facility] ED on 03/02/24 & states she [...] ED again. Please advise. Bettina Murray LPN [facility] Telephone encounter Note* Telephone Encounter - [...] to f/u on symptoms. Parris Eckert RN [facility] Miscellaneous Notes* Telephone Encounter - Parris [...] to Pulmonology to f/u on symptoms. Parris Eckert, RN * Telephone Encounter - Octavio Reza MD - 03/06/2024 8:23 PM EDT Stop the Breyna inhaler as well. Reviewed that had diagnosis of mild persistent asthma Since has had problems with several inhalers tried, can see how her breathing does without med to replace Symbicort. Follow up with district medical examiner if has recurrence of cough or wheezing. * Telephone Encounter - Bettina Murray LPN - 03/06/2024 4:52 PM EDT Pt reports she has been using generic advair, was sent to pharm 02/20/24. Pt states she started feeling she was having an erratic heart beat & she had felt ' a let down feeling' with her heart. Pt was seen at [facility] ED on 03/02/24 & states she [...] advise. Bettina Murray LPN documented in this encounterCity Hospital08-20-2024 Telephone encounter Note * Telephone Encounter - Octavio Reza MD - 03/06/2024 8:23 PM EDT Stop the Breyna inhaler as well. Reviewed that had diagnosis of mild persistent asthma Since has had problems with several inhalers tried, can see how her breathing does without med to replace Symbicort. Follow up with district medical examiner if has recurrence of cough or wheezing. [facility] Tele[facility] Note* Telephone Encounter - Bettina Murray LPN - 03/06/2024 4:52 PM EDT Pt reports she has been using generic advair, was sent to pharm 02/20/24. Pt states she started feeling she was having an erratic heart beat & she had felt ' a let down feeling' with her heart. Pt was seen at [facility] ED on 03/02/24 & states she [...] ED again. Please advise. Bettina Murray LPN [facility] Telephone encounter Note* Telephone Encounter - Destinee Sims LPN - 03/05/2024 7:33 PM EDT Patient notified, order faxed to [facility] Scheduling. Destinee Sims LPN [facility] Miscellaneous Notes* Telephone Encounter - Destinee Sims LPN - 03/05/2024 7:33 PM EDT Patient notified, order faxed to [facility] Scheduling. Destinee Sims LPN * Telephone Encounter - Lydia Grande APRN.CNS - 03/05/2024 4:30 PM EDT [place] * Telephone Encounter - Cesar Brush LPN - 03/05/2024 8:36 AM EDT Patient calling she has gotten her reminder letter form [facility] that it is time to get mamm order. Patient needs done after 03/22/2024. Pending order and fax to [facility] at [phone] when completed, notify patient. Please advise documented in this encounterCity Hospital08-19-2024 Telephone encounter Note * Telephone Encounter - Lydia Grande APRN.CNS - 03/05/2024 4:30 PM EDT [place] [facility] Telephone encounter Note* Telephone Encounter - Cesar Brush LPN - 03/05/2024 8:36 AM EDT Patient calling she has gotten her reminder letter form [facility] that it is time to get mamm order. Patient needs done after 03/22/2024. Pending order and fax to [facility] at [phone] when completed, notify patient. 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 Rx coverage: Payor: [facility] MEDIC[facility] / Plan: [employer] MEDICARE PPO / [...] 05/23/24 Next PharmD visit: 04/10/24 Charis Lucas, PharmD, BCACP Primary Care Clinical Admission Nurse Coordinator documented in this encounterCity Hospital08-06-2024 Telephone encounter Note * Telephone Encounter - Pattie Giles RN - 02/21/2024 8:32 AM EDT Call placed to patient and notified of below. Patient verbalizes understanding. Pattie Giles RN [facility] Miscellaneous Notes* Telephone Encounter - Pattie [...] in. Pattie Giles RN documented in this encounterCity Hospital08-05-2024 Telephone encounter Note * Telephone Encounter [...] or switch to another inhaler, like Breo. [facility] Telephone encounter Note* Telephone Encounter - Pattie Giles RN - 02/20/2024 8:11 AM EDT Patient calls to report that her insurance isn't going to cover the name brand Symbicort and she will need an alternative inhaler prescription sent in. Pattie Giles RN [facility] History of Present illness Narrative* Renetta Mcgee APRN.FABIO - 02/15/2024 2:45 PM EDT OFFICE VISIT [...] (Patient not taking: Reported on 01/12/2024) Insulin Owanka, Disposable, (BD ULTRA-FINE FADY PEN NEEDLE) 32 [...] Lysine Itching Naprosyn [Naproxen] GI Upset Nausea Ccwnfhn-Coe-Gwt Red* Myalgia Tylenol-Codeine #3 * Vomiting Ventolin [...] current insulin dosing STRONGLY RECOMMEND SEEING ENDO HEAD OF LOSS PREVENTION and starting to learn insulin to carb ratio, and advanced carb counting. Patient/ much more relaxed today and are starting to feel that they are able to be in control of the patient's blood sugars regardless of her diet, although patient is still being very carefulwith her choices. CONSULT TO ENDO HEAD OF LOSS PREVENTION. Plan: COMPREHENSIVE METABOLIC PANEL, LIPID PANEL, NONFASTING, ALBUMIN/CREATININE RATIO, URINE, HEMOGLOBIN A1C, ENDOCRINOLOGY DIETITIAN VISIT (MNT) Renetta Mcgee CNP documented in this encounterCity Hospital07-29-2024 History of Present illness Narrative* Octavio [...] able to tolerate BiPAP. Was evaluated at [facility]. Gatorade 1 small bottle and 5 [...] then wash off in the morning Insulin Owanka, Disposable, (BD ULTRA-FINE FADY PEN NEEDLE) 32 [...] - 4.00 k/uL 0.48 (L) 0.81 (L) Carver% % 6.3 7.6 Abs Carver <0.87 k/uL 0.46 0.40 Eosin% % 3.6 [...] which included preparing to see the patient, dbdy-sn-pgrv patient care, completing clinical documentation, obtaining and/or reviewing separately obtained history, performing a medically appropriate examination, counseling and educating the pat ient/family/caregiver, ordering medications, tests, or procedures, independently interpreting results (not separately reported), and communicating results to the patient/family/caregiver. Octavio Reza MD documented in this encounterCity Hospital07-11-2024 Telephone encounter Note * Telephone Encounter - Ritika Santos LPN - 01/26/2024 3:01 PM EDT Patient notified of providers message and verbalized understanding [facility] Miscellaneous Notes* Telephone Encounter - Ritika [...] and not 02/06. Call patient with update [phone]. Thank you. * Telephone Encounter - Bettina Murray LPN - 01/25/2024 8:13 AM EDT Pt has an appt 02/13/24 & is asking that lab orders be placed if she is due for any. Please notify pt. Please notify pt that her appt is 02/12 not 02/06 as she told me on the phone Bettina Murray LPN documented in this encounterCity Hospital07-11-2024 Telephone encounter Note * Telephone Encounter - Lydia Grande APRN.CNS - 01/26/2024 2:42 PM EDT Labs ordered [facility] Telephone encounter Note* Telephone Encounter - [...] date on her calendar. Darlene Mena RN [facility] Telephone encounter Note* Telephone Encounter - Asmita Tapia RN - 01/25/2024 4:29 PM EDT Patient calling to check on status of request below. Please place lab orders for upcoming appt, when able. Pt reminded that her appointment is on 02/13/24 and not 02/06. Call patient with update [phone]. Thank you. [facility] Telephone encounter Note* Telephone Encounter - Bettina Murray LPN - 01/25/2024 8:13 AM EDT Pt has an appt 02/13/24 & is asking that lab orders be placed if she is due for any. Please notify pt. 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 Insulin Owanka, Disposable, (BD ULTRA-FINE FADY PEN NEEDLE) 32 [...] Adherence: denies missed doses. Rx coverage: Payor: [facility] MEDICARE / Plan: [employer] MEDICARE PPO / [...] Charis Lucas, PharmD, BCACP Primary Care Clinical Admission Nurse Coordinator documented in this encounterCity Hospital06-17-2024 History of Present illness Narrative* Tamika Morris [...] 1 capsule by mouth once daily. Insulin Owanka, Disposable, (BD ULTRA-FINE FADY PEN NEEDLE) 32 [...] Lysine Itching Naprosyn [Naproxen] GI Upset Nausea Fdqvtuu-Vke-Tav Red* Myalgia Tylenol-Codeine #3 * Vomiting Ventolin [...] has had this lesion removed by her professional nursing tutor a few years ago. She will follow-up with Dr. Blanton for dermatologic reevaluation of potentially precancerous lesion. Tamika Morris MD documented in this encounterCity Hospital06-11-2024 Telephone encounter Note * Telephone Encounter - Norma Devlin RN - 12/27/2023 9:48 AM EDT L/M for Pt to return call to office re: below notation per Renetta Mcgee CNP. Norma Deviln RN December 27, 2023 9:48 AM [facility] Miscellaneous Notes* Telephone Encounter - Norma Devlin RN - 12/27/2023 9:48 AM EDT L/M for Pt to return call to office re: below notation per Renetta Mcgee CNP. Norma Devlin RN December 27, 2023 9:48 AM * [...] hears back from you. documented in this encounterCity Hospital06-10-2024 Telephone encounter Note * Telephone Encounter [...] hear that her sugars are leveling out. [facility] Telephone encounter Note* Telephone Encounter - [...] instructions until she hears back from you. [facility] Telephone encounter Note* Telephone Encounter - Tierney Deluca MA - 12/09/2023 4:33 PM EDT Patient phoned and relayed message below as per provider. She reports understanding and has no further questions. Tierney Deluca MA [facility] Miscellaneous Notes* Telephone Encounter - Tierney [...] for her to sit with the ENDO HEAD OF LOSS PREVENTION (she will be starting her clinic in [...] like called on her husbands phone at [phone]. documented in this encounterCity Hospital05-24-2024 Telephone encounter Note * Telephone Encounter - Renetta Mcgee APRN.CNP - 12/09/2023 4:14 PM EDT Please let the patient know she can have a snack and depending on what it is, can take 2-3 units offast acting insulin. I would ideally like for her to sit with the ENDO HEAD OF LOSS PREVENTION (she will be starting her clinic in December) She really needs to understand the carb counting and how insulin to carb ratio works for coverage, this knowledge will put an end to her frustration with her sugars and keep her well controlled no matter what she decides to eat! Her JAYSON confirms TYPE I status for her. [facility] Telephone encounter Note* Telephone Encounter - [...] like called on her husbands phone at [phone]. [facility] Telephone encounter Note* Telephone Encounter - Madeline Quintana LPN - 12/09/2023 1:47 PM EDT Patient did go to the [facility] ER on 12/07/23. Copies of ED visit copied for provider. ED discharge note instructs patient to follow up with PCP only as needed. Madeline Quintana LPN [facility] Miscellaneous Notes* Telephone Encounter - Madeline Quintana LPN - 12/09/2023 1:47 PM EDT Patient did go to the [facility] ER on 12/07/23. Copies of ED [...] for evaluation. Please advise. documented in this encounterCity Hospital05-22-2024 Telephone encounter Note * Telephone Encounter [...] to the ER for evaluation. Please advise. [facility] Instructions* Patient Instructions* Renetta Mcgee APRN.CNP [...] glucose does not improve. documented in this encounterCity Hospital05-22-2024 History of Present illness Narrative* Renetta [...] by mouth one time a week. Insulin Owanka, Disposable, (BD ULTRA-FINE FADY PEN NEEDLE) 32 [...] A1C Renetta Mcgee CNP documented in this encounterCity Hospital05-20-2024 Telephone encounter Note * Telephone Encounter - Patricia Mora LPN - 12/05/2023 12:12 PM EDT PATIENT NOTIFIED OF SAME. [facility] Miscellaneous Notes* Telephone Encounter - Patricia [...] advise, Pattie Giles RN documented in this encounterCity Hospital05-20-2024 Telephone encounter Note * Telephone Encounter - Patricia Mora LPN - 12/05/2023 12:08 PM EDT PATIENT NOTIFIED OF SAME. [facility] Miscellaneous Notes* Telephone Encounter - Patricia [...] advise. Rakel Agosto LPN documented in this encounterCity Hospital05-20-2024 Telephone encounter Note * Telephone Encounter - Davon Wolfe APRN.FABIO - 12/05/2023 12:01 PM EDT It would be alright to get her hair done if getting it done does not cause her to have symptoms such as dizziness, lightheadedness, vision changes, etc. [facility] Telephone encounter Note* Telephone Encounter - [...] hair done today. Please review and advise. Rkael Agosto LPN [facility] Telephone encounter Note* Telephone Encounter - [...] to add prior to appointment with endocrinology. [facility] Telephone encounter Note* Telephone Encounter - [...] Please review and advise, Pattie Giles RN [facility] Telephone encounter Note* Telephone Encounter - Patricia Mora LPN - 11/21/2023 2:47 PM EDT PATIENT NOTIFIED OF SAME. [facility] Miscellaneous Notes* Telephone Encounter - Patricia [...] her it could be from a different operations executive, she said the pharmacy told her the [...] She has eye appt at 920 am [facility], will not be able to reached. She has been taking Lantus 24 units at bedtime. Patient is asking what should she be taking in place of the Novolog? She said she is so nervous about this, has got diarrhea worrying about it. Please advise documented in this encounterCity Hospital05-06-2024 Telephone encounter Note * Telephone Encounter [...] drop her sugars like the novolog does. [facility] Telephone encounter Note* Telephone Encounter - [...] continue with weekly dose of daily dose? [facility] Telephone encounter Note* Telephone Encounter - Davon Wolfe APRN.CNP - 11/21/2023 1:07 PM EDT Please see if she would be willing to stop the NPH insulin and use the sliding scale as ordered forthe novolog. We could also further adjust the lantus. I think she would tolerate doing 26 units of the Lantus if she is going without the NPH insulin. [facility] Telephone encounter Note* Telephone Encounter - [...] her it could be from a different operations executive, she said the pharmacy told her the [...] Please call and advise. Parris Eckert RN [facility] Telephone encounter Note* Telephone Encounter - Davon Wolfe APRN.CNP - 11/21/2023 10:26 AM EDT Please see how often she is taking the Novolog and how many units when using it? We could stop the novolog and adjust the other insulins if she is not using much of it. [facility] Telephone encounter Note* Telephone Encounter - [...] She has eye appt at 920 am [facility], will not be able to reached. She has been taking Lantus 24 units at bedtime. Patient is asking what should she be taking in place of the Novolog? She said she is so nervous about this, has got diarrhea worrying about it. Please advise [facility] Telephone encounter Note* Telephone Encounter - Patricia Mora LPN - 11/11/2023 2:24 PM EDT PATIENT NOTIFIED OF SAME and expressed understanding. [facility] Miscellaneous Notes* Telephone Encounter - Patricia [...] needs to change anything. documented in this encounterCity Hospital04-26-2024 Telephone encounter Note * Telephone Encounter - Davon Wolfe APRN.CNP - 11/11/2023 1:17 PM EDT Okay, understood, she could increase the Lantus then to 26 units but reduce the lispro to 2 units and see if helpful with the symptoms. Please have her call next week with an update after a few days of doing that. [facility] Telephone encounter Note* Telephone Encounter - [...] about 30 minutes. Then feels dizzy, weak. [facility] Telephone encounter Note* Telephone Encounter - Davon Wolfe APRN.CNP - 11/11/2023 10:38 AM EDT Please return her call and let her know that based on the am sugars we could adjust the Lantus to 22 units as this will help with the am readings to get them closer to 120. [facility] Telephone encounter Note* Telephone Encounter - [...] patient if she needs to change anything. [facility] Telephone encounter Note* Telephone Encounter - Davon Wolfe APRN.CNP - 11/11/2023 8:18 AM EDT Seen 11/08 [facility] Miscellaneous Notes* Telephone Encounter - Davon Wolfe APRN.CNP - 11/11/2023 8:18 AM EDT Seen 11/08 * Telephone Encounter - Madeline Quintana LPN - 11/04/2023 4:23 PM EDT Images from the original note were not included. Patient dropped off documented in this encounterCity Hospital04-25-2024 Telephone encounter Note * Telephone Encounter - Lydia Grande APRN.CNS - 11/10/2023 7:13 AM EDT Noted [facility] Miscellaneous Notes* Telephone Encounter - Lydia [...] recommendation. Rochelle Hoyt RN documented in this encounterCity Hospital04-24-2024 Instructions* Patient Instructions* Davon Wolfe APRN.FABIO - 11/09/2023 3:28 PM EDT The pen is the long acting insulin, this impacts the morning fasting sugar the most. The Novolog is the very quick, short acting insulin. You need to eat with in 30 minuets of that one. documented in this encounterCity Hospital04-24-2024 History of Present illness Narrative* Davon Wolfe APRN.FABIO - 11/09/2023 3:08 PM EDT SUBJECTIVE Attila [...] She has been in the ER at [facility] a few times in the last [...] (Patient not taking: Reported on 11/09/2023) Insulin Owanka, Disposable, (BD ULTRA-FINE FADY PEN NEEDLE) 32 [...] appointment.. Davon Wolfe APRN-FABIO documented in this encounterCity Hospital04-24-2024 Telephone encounter Note * Telephone Encounter [...] Wolfe per patient's request. Rochelle Hoyt RN [facility] Miscellaneous Notes* Telephone Encounter - Rochelle [...] with Davon Wolfe per patient's request. Rochelle Hoyt, RN documented in this encounterCity Hospital04-23-2024 Telephone encounter Note * Telephone Encounter [...] with updated readings in next 2-3 days.. [facility] Telephone encounter Note* Telephone Encounter - Lydia Grande APRN.CNS - 11/08/2023 4:12 PM EDT See scanned document, no changes made to medications at home. She was advised to follow her sliding scale insulin orders and make an appointment with endocrinology. Did she want to make an appointment with endocrinology and if so does she need a referral? How her blood sugars today? [facility] Telephone encounter Note* Telephone Encounter - Rakel Agosto LPN - 11/08/2023 11:43 AM EDT Pt calls to report she ended up going to ER yesterday and got sugar under control. Rakel Agosto LPN [facility] Telephone encounter Note* Telephone Encounter - Madeline Quintana LPN - 11/08/2023 8:56 AM EDT Records printed for provider to review. Madeline Quintana LPN [facility] Telephone encounter Note* Telephone Encounter - Anika Garber LPN - 11/07/2023 3:44 PM EDT left message for patient to call office back and speak with triage nurse. Anika Garber LPN [facility] Work Phone: [phone] 576-889804-22-2024 Telephone encounter Note* Telephone Encounter - Lydia [...] diabetes. Recommend avoid excess intake of carbohydrates. [facility] Telephone encounter Note* Telephone Encounter - [...] asking for PCP recommendation. Rochelle Hoyt, RN [facility]19[facility]2024 Telephone encounter Note* Telephone Encounter - Madeline Quintana LPN - 11/04/2023 4:23 PM EDT Images from the original note were not included. Patient dropped off [facility]2024 NoteHNO ID: [id number] Author: HEATHER DE ANDA RT(R) Service: ? [...] PATIENT PRESENTS WITH AN IMPLANTABLE OR ATTACHED POLICE LIEUTENANT PRECINCT: No RADIOLOGY DEPARTMENT: Ultrasound PERIPHERAL IV DATA: Not applicable SIGNED BY: Heather De Anda RDMS, RVT October 31, 2023 12:57 [facility]04-15-2024 Miscellaneous Notes* Telephone Encounter - Gabi Santiago LPN - 10/31/2023 2:25 PM EDT Patient notified.Gabi Santiago LPN * Telephone Encounter - Tamika Morris MD - 10/31/2023 1:57 PM EDT Ultrasound showed no blood clot in her leg. She may resume wearing her compression hose and leg brace. Follow up if swelling or pain worsens documented in this encounterCity Hospital04-15-2024 History of Present illness Narrative* Heather [...] PATIENT PRESENTS WITH AN IMPLANTABLE OR ATTACHED POLICE LIEUTENANT PRECINCT: No RADIOLOGY DEPARTMENT: Ultrasound PERIPHERAL IV DATA: Not applicable SIGNED BY: Heather De Anda RDMS, T October 31, 2023 12:57 PM documented in this encounterCity Hospital04-15-2024 History of Present illness Narrative* Tamika [...] by mouth one time a week. Insulin Owanka, Disposable, (BD ULTRA-FINE FADY PEN NEEDLE) 32 [...] and CBC in August (more recently at [facility] ED). Tamika Morris MD documented in this encounterCity Hospital04-12-2024 Discharge summary Author Tierney Francis [facility] October 28, 2023 9:20pm Note Date/Time October 28, 2023 7:1 6pm [facility] Medical Records Department [address] [place] [address] Emergency Department Summary 10/28/23 MR#: [id number] Acct: [id number] Name: ATTILA KIDD Rep #:[id number] : 1945 78 From: Tierney Francis MD [...] palpitations when her blood sugars are high. [facility] Medical History Abnormal EKG Asthma Bimalleolar ankle [...] amiodarone Allergy Intermediate Swelling Verified 10/28/23 18:51 Staples And Derivatives Allergy Intermediate Hives Verified 10/28/23 [...] 18:51 [From Airborne (ascorbate sodium)] hydrocodone [From Kramer] Allergy Mild dystonia Verified 10/28/23 18:51 lysine [...] 18:51 hydrochlorothiazide Allergy Other Verified 10/28/23 18:51 Qflqegp-OTE-YfW Reductase AdvReac Severe myalgias Verified 10/28/23 18:51 Inhibitor [Pjeekhs-Cxb-Jpa Reductase Inhibitor] amoxicillin [From Augmentin] AdvReac Other [...] Medical decision making narrative: Patient placed on communications program manager. EKG obtained to evaluate for cardiac arrhythmia/ischemia. [...] 73.4 H Lymph % (Auto) 14.4 L Carver % (Auto) 6.2 Eos % (Auto) 5.4 [...] your Primary Care Provider. Call [facility] ([phone]) or report to the closest Emergency Room. Call 911 if necessary. 10/28/232119 <Electronically signed by Tierney Francis MD> Cosigner Signature (if applicable): CC: Dr. Octavio Reza MD ~ Signed [facility] Work Phone: 1(896) 499-957804-08-2024 Miscellaneous Notes* Telephone Encounter - Parris Eckert [...] for PCP to review. documented in this encounterCity Hospital04-01-2024 Miscellaneous Notes* Telephone Encounter - Octavio [...] advise patient and phone patient with reply: [phone]. documented in this encounterCity Hospital03-18-2024 Miscellaneous Notes* Telephone Encounter - Parris [...] calls to report he took pt to [facility] ER 09/30 for URI sx. reports [...] pt. Rakel Agosto LPN documented in this encounterCity Hospital03-16-2024 Discharge summary Author Mark Leong [facility] October 01, 2023 4:29pm Note Date/Time October 01, 2023 2:5 2pm [facility] Medical Records Department [address] [place] [id number] Emergency Department Summary 10/01/23 MR#: [id number] Acct: [id number] Name: ATTILA KIDD Rep #:[id number] : 1945 78 From: Mark Leong MD [...] has required 2 L O2 at night. [facility] <ALEN Diamond - Last Filed: 10/01/23 16:26> [facility] Medical History Abnormal EKG Asthma Bimalleolar ankle [...] amiodarone Allergy Intermediate Swelling Verified 10/01/23 14:33 Staples And Derivatives Allergy Intermediate Hives Verified 10/01/23 14:33 morphine Allergy Intermediate confusion Verified 10/01/23 14:33 moxifloxacin Allergy Intermediate Shortness Verified 10/01/23 14:33 of breath nabumetone Allergy Intermediate damaged Verified 10/01/23 14:33 kidney penicillin G Allergy Intermediate TURNS BLUE Verified 10/01/23 14:33 propoxyphene Allergy Intermediate PT UNSURE Verified 10/01/23 14:33 OF REACTION acetaminophen [From Kramer] Allergy Mild dystonia Verified 10/01/23 14:33 amlodipine Allergy Mild Abd Verified 10/01/23 14:33 cramps/diarrhea ascorbic acid Allergy Mild Itching Verified 10/01/23 14:33 [From Airborne (ascorbate sodium)] desloratadine Allergy Mild headache Verified 10/01/23 14:33 glutamine Allergy Mild Itching Verified 10/01/23 14:33 [From Airborne (ascorbate sodium)] herbal complex no.124 Allergy Mild Itching Verified 10/01/23 14:33 [From Airborne (ascorbate sodium)] hydrocodone [From Kramer] Allergy Mild dystonia Verified 10/01/23 14:33 lysine [...] 14:33 hydrochlorothiazide Allergy Other Verified 10/01/23 14:33 Ngsoeqi-SIP-ZhP Reductase AdvReac Severe myalgias Verified 10/01/23 14:33 Inhibitor [Jzyfucj-Zwq-Sba Reductase Inhibitor] amoxicillin [From Augmentin] AdvReac Other [...] <ALEN Diamond - Last Filed: 10/01/23 16:26> [facility] MDM Narrative Medical decision making narrative: History [...] 81.4 H Lymph % (Auto) 9.3 L Carver % (Auto) 7.6 Eos % (Auto) 1.2 [...] Leong MD - Last Filed: 10/01/23 16:29> MDM [...] 81.4 H Lymph % (Auto) 9.3 L Carver % (Auto) 7.6 Eos % (Auto) 1.2 [...] upper respiratory infection. Use nasal saline and mrko-jjk-vyutmkl congestion medication as needed. Follow-up with your doctor. If symptoms worsen return to ER. What to do if you have Problems For any increased pain, shortness of breath, bleeding, nausea or vomiting, chestpain, or any unexpected problems, contact your Primary Care Provider. Call [facility] ([phone]) or report to the closest Emergency Room. Call 911 if necessary. 10/01/23 162 <Electronically signed by Mark Leong MD> Cosigner Signature (if applicable): 10/01/23 162 <Electronically signed by Amber LOWRY> CC: Dr. Octavio Reza MD ~ Signed [facility] Work Phone: 1(537) 871-549203-14-2024 Miscellaneous Notes* Telephone Encounter - Pattie Giles RN - 09/29/2023 2:53 PM EDT Patient calls to request an updated medication list be sent to [facility]. Faxed to [phone] per request. Pattie Giles RN documented in this encounterCity Hospital03-11-2024 Miscellaneous Notes* Telephone Encounter - Vibha Peña LPN - 09/26/2023 3:12 PM EDT Called the pharmacy and they gave a number of [phone]. Number called and PA approved from 09/26/23 to 09/25/24. PA approval number is [id number]. Pharmacy notified. Pt notified. * Telephone Encounter - Cesar Brush LPN - 09/26/2023 8:45 AM EDT PRIOR AUTHORIZATION Medication for Prior Authorization: glucose test strips testing 8 times daily Other formulary meds available : NO Insurance Company[facility] Medicare Insurance Stat phone number: [phone] Patient insurance ID number: [id number] Cesar Brush LPN Patient testing 8 times daily, blood sugars changing frequently, she takes 3 types insulin daily, Novolog at meals, NPH at breakfast and Glargine at bedtime. documented in this encounterCity Hospital03-08-2024 Miscellaneous Notes* Telephone Encounter - Parris [...] you. Parris Eckert RN. documented in this encounterCity Hospital03-07-2024 History of Present illness Narrative* Christine Bianchi MD - 09/22/2023 1:15 PM EST Images from the original note were not included. . [facility] [place] Note Patient name: Attila Kidd PCP: Octavio Reza MD CC: Follow-up asthma HPI: Attila Kidd 78 year old female former 10 pack year smoker with PMH significant for HTN, HLD, GERD, DM2, THAIS non-compliant with BiPAP, nocturnal oxygen use, asthma, former patient of Dr. Luu, new to [place]. History notable for influenza A infection in [...] Finger 30 -- Wheeled Walker NAME: Zora Cortes RP PATIENT NAME: Attila Kidd DATE: June 23, [...] 0.48 Low Monocytes % % 6.3 Abs Carver <0.87 k/uL 0.46 Eosinophils % % 3.6 Abs Eosin <0.46 k/uL 0.26 Basophils % % 0.4 Abs Baso <0.11 k/uL 0.03 Immature Granulocytes % % 0.3 Abs Immature Gran <0.10 k/uL <0.03 NRBC /100 WBC 0.0 Absolute nRBC <0.01 k/uL <0.01 Diff Type Auto Imaging / Diagnostic Studies: CXR 05/2023 at [facility]: PAST MEDICAL HISTORY Diagnosis Date Adverse [...] by mouth one time a week. Insulin Owanka, Disposable, (BD ULTRA-FINE FADY PEN NEEDLE) 32 [...] retry her BiPAP -Weight loss advised Christine Bianchi MD [facility] [place] documented in this encounterCity Hospital03-06-2024 Instructions* Patient Instructions* Octavio Reza MD - 09/21/2023 2:07 PM EST May continue taking half pill of metoprolol twice daily and take extra half just as needed for symptomatic PACs (extra beats) or if ever have heart racing episode that does not resolve on its own. documented in this encounterCity Hospital03-06-2024 History of Present illness Narrative* Octavio Reza MD - 09/21/2023 1:56 PM EST This note was created using 99testster. Subjective Attila Kidd is a 78 year old female. Patient presents with: ED Follow-up SUBJECTIVE: Attila Kidd is a 78 year old year old lady here today for ER follow up appointment for review ofmedical conditions. Was in ER for palpitations. [place] irregular. In ER twice. 09/15--told to stay [...] by mouth one time a week. Insulin Owanka, Disposable, (BD ULTRA-FINE FADY PEN NEEDLE) 32 [...] normal. Judgment: Judgment normal. Reviewed labs from [facility] Assessment and Plan Encounter Diagnosis ICD-10-CM [...] the date of the service which included moip-bf-bldl patient care, completing clinical documentation, obtaining and/or reviewing separately obtained history, performing a medically appropriate examination, counseling and educating the patient/family/caregiver, ordering medications, tests, or procedures, independently interpreting results (not separately reported), and communicating results to the patient/family/caregiver. Octavio Reza MD documented in this encounterCity Hospital03-06-2024 Discharge summary Author Nik Nunez [facility] September 21, 2023 3:45am Note Date/Time September 21, 2023 12:4 4am [facility] Medical Records Department [address] [place] [address] Emergency Department Summary 09/21/23 MR#: [id number] Acct: [id number] Name: ATTILA KIDD Rep #:[id number] : 1945 78 From: Nik Nunez MD [...] having some prickling chest discomfort without radiation. [place] similar to prior episodes ofSVT. She states [...] getting here to the hospital. Currently asymptomatic. [facility] Medical History Abnormal EKG Asthma Bimalleolar ankle [...] (Norvasc) 5 mg PO DAILY BLOOD PRESSURE 12/31/22 [History Last Taken Unknown] metoprolol tartrate 25 [...] amiodarone Allergy Intermediate Swelling Verified 09/16/23 17:54 Staples And Derivatives Allergy Intermediate Hives Verified 09/16/23 17:54 morphine Allergy Intermediate confusion Verified 09/16/23 17:54 moxifloxacin Allergy Intermediate Shortness Verified 09/16/23 17:54 of breath nabumetone Allergy Intermediate damaged Verified 09/16/23 17:54 kidney penicillin G Allergy Intermediate TURNS BLUE Verified 09/16/23 17:54 propoxyphene Allergy Intermediate PT UNSURE Verified 09/16/23 17:54 OF REACTION acetaminophen [From Kramer] Allergy Mild dystonia Verified 09/16/23 17:54 amlodipine Allergy Mild Abd Verified 09/16/23 17:54 cramps/diarrhea ascorbic acid Allergy Mild Itching Verified 09/16/23 17:54 [From Airborne (ascorbate sodium)] desloratadine Allergy Mild headache Verified 09/16/23 17:54 glutamine Allergy Mild Itching Verified 09/16/23 17:54 [From Airborne (ascorbate sodium)] herbal complex no.124 Allergy Mild Itching Verified 09/16/23 17:54 [From Airborne (ascorbate sodium)] hydrocodone [From Kramer] Allergy Mild dystonia Verified 09/16/23 17:54 lysine [...] 17:54 hydrochlorothiazide Allergy Other Verified 09/16/23 17:54 Ipupswm-QRR-YrE Reductase AdvReac Severe myalgias Verified 09/16/23 17:54 Inhibitor [Xthgmvy-Psw-Qob Reductase Inhibitor] amoxicillin [From Augmentin] AdvReac Other [...] and she was given the information for [facility] since I have that readily [...] (Auto) 67.5 Lymph % (Auto) 17.9 L Carver % (Auto) 8.3 Eos % (Auto) 5.8 [...] - Areli Estevez PA [Med Staff - [facility]] - As soon as possible Disposition Disposition: Home, Self Care What to do if you have Problems For any increased pain, shortness of breath, bleeding, nausea or vomiting, chestpain, or any unexpected problems, contact your Primary Care Provider. Call [facility] ([phone]) or report to the closest Emergency Room. Call 911 if necessary. 09/21/23 0345 <Electronically signed by Nik Nunez MD> Cosigner Signature (if applicable): CC: Dr. Octavio Reza MD ~ Signed [facility] Work Phone: [phone]) 605-251302-19-2024 Miscellaneous Notes* Telephone Encounter - Cesar Brush LPN - 09/05/2023 2:19 PM EST Patient returned call and went over results, notes from Lydia Grande PRODUCT DESIGNER with understanding,. After going over questions with Sed rate and CRP being elevated. Patient wants to stay locally to see Human Anatomy Teacher since she is in wheel chair and [...] Asmita Tapia RN' * Telephone Encounter - Grande Lydia, WASTEWATER PLANT CIVIL ENGINEER.REAL ESTATE LEGAL SECRETARY - 09/05/2023 11:04 AM EST Please let her know that DORA and rheumatoid factor were negative. CRP and ESR are slightly elevated. Stable A1c. Vitamin D is normal. She may continue on with Advil with finding it helpful. If she would like to see a manager play I can place a consult. Schedule if [...] Lymph 1.00 - 4.00 k/uL 0.48 (L) Carver% % 6.3 Abs Carver <0.87 k/uL 0.46 Eosin% % 3.6 Abs [...] when able. Thank you. documented in this encounterCity Hospital02-15-2024 History of Present illness Narrative* Lydia [...] Alleviate: advil seemed to help Aggravate: no Plbf-vup-ngetmpx: Prior occurrence: no Review of Systems Respiratory: Negative. Musculoskeletal: Positive for arthralgias. Objective BP 144/74 Pulse 64 Resp 16 Wt (!) 156.5 kg (345 lb) SpO2 96% BMI 50.95 kg/m Physical Exam Vitals and nursing note reviewed. Constitutional: Appearance: Normal appearance. HENT: Head: Normocephalic and atraumatic. Mouth/Throat: Lips: [place]. Mouth: Mucous membranes are moist. Eyes: Conjunctiva/sclera: [...] by mouth one time a week. Insulin Owanka, Disposable, (BD ULTRA-FINE AFDY PEN NEEDLE) 32 gauge x 5/32 Use [...] Level: 4 - Moderate documented in this encounterCity Hospital12-07-2023 History of Present illness Narrative* Tierney [...] that time patient has been admitted to [facility] on two occasions. The first being [...] (Patient not taking: Reported on 05/23/2023) Insulin Owanka, Disposable, (BD ULTRA-FINE FADY PEN NEEDLE) 32 [...] 04/18/2017 56.0 (A) PFT, 06/23/2023 CXR, 05/28/2023 [facility] FINDINGS: The lungs are clear and [...] necessary. Tierney Nunez PA-C documented in this encounterCity Hospital11-28-2023 Miscellaneous Notes* Telephone Encounter - Gloria [...] problem. Gloria Rand RN. documented in this encounterCity Hospital11-06-2023 Instructions* Patient Instructions* Octavio Reza MD [...] with antifungal shampoo [31,32]. documented in this encounterCity Hospital11-06-2023 History of Present illness Narrative* Octavio [...] get juice. Reviewed had bad experience at [facility]. Noted saw Dr. Lees. Working on [...] times daily before meals. As directed Insulin Owanka, Disposable, (BD ULTRA-FINE FADY PEN NEEDLE) 32 [...] the date of the service which included ufsl-ie-hegl patient care, completing clinical documentation, obtaining and/or reviewing separately obtained history, performing a medically appropriate examination, counseling and educating the patient/family/caregiver, ordering medications, tests, or procedures, independently interpreting results (not separately reported), and communicating results to the patient/family/caregiver. Octavio Reza MD documented in this encounterCity Hospital10-30-2023 History of Present illness Narrative* Anant Lees MD - 05/16/2023 9:54 AM EDT Images from the original note were not included. Anant Lees MD Interventional Cardiology [address] [place] [address] Chief Complaint Patient presents with: New Patient: [...] time a week. 12 capsule 4 Insulin Owanka, Disposable, (BD ULTRA-FINE FADY PEN NEEDLE) 32 [...] to correct any errors. documented in this encounterCity Hospital08-15-2023 Miscellaneous Notes* Telephone Encounter - Octavio [...] and advise. Himanshu Bolden documented in this encounterCity Hospital08-07-2023 Miscellaneous Notes* Telephone Encounter - Cesar Brush LPN - 02/21/2023 1:42 PM EDT Printed order and faxed to [facility] as requested. Phoned patient and aware order was faxed as requested. * Telephone Encounter - Octavio Reza MD - 02/21/2023 1:08 PM EDT Filed order Fax order as requested * Telephone Encounter - Cesar Brush LPN - 02/21/2023 11:01 AM EDT Patient calling she had received her reminder from [facility] that she will need new order for 3 D mamm faxed to [phone]. Pending order to file. Please call patient when order has been faxed so she canschedule her appt at [facility]. Please advise documented in this encounterCity Hospital07-03-2023 Instructions* Patient Instructions* Octavio Reza MD [...] just once a week. documented in this encounterCity Hospital07-03-2023 History of Present illness Narrative* Octavio Reza MD - 01/17/2023 1:40 PM EDT This note was created using Embibe. Subjective Attila Kidd is a 77 year [...] past. Noted had a terrible time with [facility] in the hospital. Was bad. Ended [...] up to 90 days. flash glucose sensor (MoneyMenttorYLE RAISSA 2 SENSOR) kit Apply new sensor [...] by mouth once daily as needed. Insulin Owanka, Disposable, (BD ULTRA-FINE FADY PEN NEEDLE) 32 [...] which included preparing to see the patient, qrsz-fl-npal patient care, completing clinical documentation, obtaining and/or reviewing separately obtained history, performing a medically appropriate examination, counseling and educating the pat ient/family/caregiver, ordering medications, tests, or procedures, independently interpreting results (not separately reported), and communicating results to the patient/family/caregiver. Octavio Reza MD documented in this encounterCity Hospital03-21-2023 History of Present illness Narrative* Davon Wolfe APRN.[facility] - 10/05/2022 1:06 PM EDT SUBJECTIVE [...] a sore to her vaginal area. Saw sports medicine trainer in the past for this, Trudy Verma. Amoxicillin and hot compresses cleared this up in the past. Onset this time was about a week ago. Started with a painful hard lump to the outside skin of the vaginal area. Tried Keflex from sports medicine trainer due to concerns of medicaiton interactions with [...] by mouth once daily as needed. Insulin Owanka, Disposable, (BD ULTRA-FINE FADY PEN NEEDLE) 32 [...] nursing note reviewed. Exam conducted with a sorter lumber straightener present ( present in the room, ok [...] which included preparing to see the patient, xyuy-jw-ewap patient care, completing clinical documentation, obtaining and/or reviewing separately obtained history, performing a medically appropriate examination, counseling and educating the pat ient/family/caregiver, ordering medications, tests, or procedures, and care coordination (not separately reported). Return if symptoms worsen or fail to improve, for Keep next scheduled appointment.. Davon Wolfe APRN-FABIO documented in this encounterCity Hospital03-21-2023 Miscellaneous Notes* Telephone Encounter - Davon Wolfe APRN.CNP - 10/05/2022 8:37 AM EDT Noted. We can certainly take a look and decide on what is the best next steps for her. * Telephone Encounter - Sahara Moreno RN - 10/05/2022 8:29 AM EDT Patient phoned concerned the lump on labia spread to anus. Was seen in [facility] ER on 10-01 per pcp and GEOTHERMAL OPERATIONS ENGINEER recommendation for lump on labia. Reports ER [...] very concerned. Scheduled same day appt with B[employer]or. documented in this encounterCity Hospital03-17-2023 Miscellaneous Notes* Telephone Encounter - Sahara [...] larger, she needs to return to her GEOTHERMAL OPERATIONS ENGINEER to address the lump getting largerSounds like developing worsening cellulitis and probably abscess--might need incision and drainage if there is an abscess. If she is failing outpatient treatment with oral meds, might need IV antibiotics. Forwarding to Trudy Verma who had been following with her. documented in this encounterCity Hospital03-16-2023 Miscellaneous Notes* Telephone Encounter - Rochelle [...] 8:09 AM EDT Patient calling Trudy Verma PRODUCT DESIGNER had her start Cephalexin 500 mg one capsule 4 times daily on 09/27 for her valvar issue and patient said 3 hours later she was noticing her heart was lower and she was more short of breath, her SPO2 was going down. She stopped it after 3 doses. She spoke to GEOTHERMAL OPERATIONS ENGINEER and restarted medication yesterday and had same reaction 3 hours later. She was asking GEOTHERMAL OPERATIONS ENGINEER to give her Bactrim rx, Trudy said no that is not what I want you to take. She was told to notify her PCP and see whatantibiotic PCP wants to put her on. [facility]. Please advise documented in this encounterCity Hospital03-13-2023 Miscellaneous Notes* Telephone Encounter - Michelle Wu RN - 09/27/2022 9:45 AM EDT Patient notified. Michelle Wu RN The following approved medication requests have been transmitted electronically. Requested Prescriptions Signed Prescriptions Disp Refills cephALEXin (KEFLEX) 500 mg capsule 28 capsule 0 Sig: Take 1 capsule by mouth four times daily for 7 days. Authorizing Provider: TRUDY VERMA Pharmacy Information Pharmacy Address Telephone [facility] [facility] [place] [address] * Telephone Encounter - Trudy Verma APRN.CNP [...] her last time without being seen. Uses [facility] in [place]. Tierney Guajardo RN documented in this encounterCity Hospital03-07-2023 Miscellaneous Notes* Telephone Encounter - Madeline [...] - 09/15/2022 12:26 PM EST Liliana with [facility] calling to see if there is a base rate or base rate sliding scale forthe Lispro insulin and Aspart insulin . Please advise. Cayla Lynne LPN documented in this encounterCity Hospital02-28-2023 Miscellaneous Notes* Telephone Encounter - Destinee Sims LPN - 09/14/2022 10:02 AM EST Patient notified. Destinee Sims LPN * Telephone Encounter - Destinee Sims LPN - 09/14/2022 10:01 AM EST ----- Message from Octavio Reza MD sent at 09/14/2022 8:42 AM EST ----- CBC within normal limits documented in this encounterCity Hospital02-21-2023 Instructions* Patient Instructions* Octavio Reza MD [...] low sugar or dehydration. documented in this encounterCity Hospital02-21-2023 History of Present illness Narrative* Octavio Reza MD - 09/07/2022 5:20 PM EST This note was created using GameBuilder Studioriter. Subjective Attila Kidd is a 77 year [...] by mouth once daily as needed. Insulin Owanka, Disposable, (BD ULTRA-FINE FADY PEN NEEDLE) 32 [...] the date of the service which included euaa-hq-kmfn patient care, completing clinical documentation, performing a medically appropriate examination, and counseling and educating the patient/family/caregiver. Octavio Reza MD documented in this encounterCity Hospital02-15-2023 Miscellaneous Notes* Telephone Encounter - Arleen Toure APRN.CNP - 09/01/2022 3:14 PM EST Noted Arleen Toure APRN.CNP * Telephone Encounter - Cesar Brush LPN - 09/01/2022 2:06 PM EST Hubert from [facility] calling discharging patient from OT today patient has met all goals. documented in this encounterCity Hospital02-15-2023 Miscellaneous Notes* Telephone Encounter - Parris Eckert RN - 09/01/2022 9:06 AM EST Rekha PT with [facility] called and is notified of providers message and instructions. She voices understanding. Parris Eckert RN * Telephone Encounter - Lydia Grande APRN.CNS - 08/31/2022 4:39 PM EST Ok for [facility] plan, see below * Telephone Encounter - Parris Eckert RN - 08/31/2022 9:44 AM EST Rekha PT with [facility] called in her POC. She reports she [...] is a confidential number. documented in this encounterCity Hospital02-04-2023 Miscellaneous Notes* Telephone Encounter - Octavio Reza MD - 08/21/2022 9:19 AM EST Noted * Telephone Encounter - Sahara Moreno RN - 08/20/2022 1:45 PM EST Hubert- OT- [facility] - reporting POC: saw patient today for OT eval, and will see patient 1 x weekfor 3 weeks. documented in this encounterCity Hospital01-31-2023 Instructions* Patient Instructions* Octavio Reza MD [...] off at night too. documented in this encounterCity Hospital01-31-2023 History of Present illness Narrative* Octavio Reza MD - 08/17/2022 4:24 PM EST This note was created using GameBuilder Studioriter. Subjective Attila Kidd is a 77 year old female. Patient presents with: Hospital F/U: Follow up [facility] and [facility] discharge SUBJECTIVE: Attila Kidd is a 77 year old year old lady here today for follow up appointment for review of medical conditions. [facility]charged [facility] after hospitalization at [facility] twice. Noted sugars have been running high since they changed her insulin at [facility]. Current probiotic causing constipation. Prefers Symbicort since [...] by mouth once daily as needed. Insulin Owanka, Disposable, (BD ULTRA-FINE FADY PEN NEEDLE) 32 [...] the date of the service which included vrzt-bm-lkew patient care, completing clinical documentation, obtaining and/or reviewing separately obtained history, performing a medically appropriate examination, counseling and educating the patient/family/caregiver, and ordering medications, tests, or procedures. Octavio Reza MD documented in this encounterCity Hospital01-16-[address] Escalera [facility] August 02, 2022 12:32pm Note Date/Time August 02, 2022 8 :59am [facility] Medical Records Department [address] [place] [address] Progress Note - Hospitalist 08/02/22 0854 MR#: [id number] Acct: [id number] Name: ATTILA KIDD Rep #:[id number] : 1945 77 From: Zay Escalera DO PCP: Dr. Octavio Reza MD Status:AD M IN [facility] Subjective Subjective Feels well. Breathing well [...] 79.8 H, Lymph % (Auto) 11.1 L, Carver % (Auto) 8.1, Eos % (Auto) 0.4, Baso % (Auto) 0.2, Absolute Neuts (auto)4.0, Absolute Lymphs (auto) 0.56 L, Nucleated RBC % 0.6 08/02/22 06:00: Sodium 137, Potassium 3.7, Chloride 101, Carbon Dioxide 26.0, Anion Gap 10, BUN 9, Creatinine 0.66, Estim Creat Clear Calc 49.24, Est GFR (MDRD) Af Amer 111, Est GFR (MDRD) Non-Af 92, BUN/Creatinine Ratio 13.5, Jaagefl717 H, Calcium 8.0 L, Phosphorus 2.4 L, [...] - Requested for PT OT eval and outreach and education social worker to assist with discharge planning. To SNF 08/02/22 1232 <Electronically signed by Zay Escalera DO> Cosigner Signature (if applicable): CC: ~ Signed [facility] Work Phone: 1(301) 462-719201-15-2023 History and physical note Author Dr. Gan [facility] August 01, 2022 7:10pm Note Date/Time July 31, 2022 1 0:18pm [facility] Medical Records Department [address] [place] [address] H&P Exam - Hospitalist 07/31/222208 MR#: [id number] Acct: [id number] Name: ATTILA KIDD Rep #:[id number] : 1945 77 From: Daisy Gan MD PCP: Dr. Octavio Reza MD Status:AD M IN Location: [facility] HCB268- 1 HPI - General General Date of [...] otherwise negative. Vitals were BP of 133/83, NJ of 99, RR of 23 and she [...] intracranial pathology. She has been admitted to [facility] for debility due to failure to thrive and COVID-19 infection. [facility] Medical History Abnormal EKG Asthma Bimalleolar ankle [...] 23:52 hydrochlorothiazide Allergy Other Verified 07/31/22 23:52 Rfrxkox-QPF-MbL Reductase AdvReac Severe myalgias Verified 07/31/22 23:52 Inhibitor [Vriwsqv-Jje-Ohb Reductase Inhibitor] codeine AdvReac Nausea Verified 07/31/22 [...] 86.7 H, Lymph % (Auto) 8.7 L, Carver %(Auto) 4.4, Eos % (Auto) 0.0, Baso [...] Sl. Cloudy, Urine pH 6.0, Ur Specific [place] 1.015, Urine Protein 15 H, Urine Glucose [...] elects to be full code. * Total xqhr-mo-qcsa time 17 minutes. Charges/Coding Visit Charges Inpatient E&M: 20671 Init Hosp L3 Procedures Hospitalists Procedures: 55881 Advncd Care Plan 30 Min 08/01/221909 <Electronically signed by Daisy Gan MD> Cosigner Signature (if applicable): CC: Dr. Octavio Reza MD; Dr. Daisy Gan MD~ Signed [facility] Work Phone: 1(751) 474-628301-15-[address] Herring [facility] August 01, 2022 10:43am Note Date/Time August 01, 2022 7 :49am [facility] Medical Records Department [address] [place] [address] Progress Note - Hospitalist 08/01/22 0745 MR#: [id number] Acct: [id number] Name: ATTILA KIDD Rep #:[id number] : 1945 77 From: Tawanda Herring MD PCP: Dr. Octavio Reza MD Status:AD M GOPAL Location: [place] [address] Subjective Subjective Follow-up hypoxia Patient is a [...] 86.7 H, Lymph % (Auto) 8.7 L, Carver %(Auto) 4.4, Eos % (Auto) 0.0, Baso [...] Sl. Cloudy, Urine pH 6.0, Ur Specific [place] 1.015, Urine Protein 15 H, Urine Glucose [...] 77.8 H, Lymph % (Auto) 15.1 L, Carver % (Auto) 6.7, Eos % (Auto) 0.0, [...] - Requested for PT OT eval and outreach and education social worker to assist with discharge planning 10. DVT prophylaxis ? Lovenox Time spent in the patient's overall evaluation,decision-making process, review of diagnostic data, adjustment of medication, review of med reconciliation, ordering of labs for the following morning, discussion with other providers, nursing nursing and ancillary staff involved in patient's care, documentation, 58 Minutes Charges/Coding Visit Charges Inpatient E&M: 02135 Subs Hosp L3 08/01/22 1043 <Electronically signed by Tawanda Herring MD> Cosigner Signature (if applicable): CC: ~ Signed [facility] Work Phone: 1(216) 379-343701-15-[address] Kessler [facility] July 31, 2022 10:41pm Note Date/Time July 31, 2022 7 :58pm [facility] Medical Records Department [address] [place] [address] Emergency Department Summary 07/31/22 MR#: [id number] Acct: [id number] Name: ATTILA KIDD Rep #:[id number] : 1945 77 From: Jesus Kessler MD PCP: Dr. Octavio Reza MD Status:AD M GOPAL Location: [address] History of Present Illness Chief Complaint: General [...] an error of one of her machines. [facility] Medical History Abnormal EKG Asthma Bimalleolar ankle [...] 17:52 hydrochlorothiazide Allergy Other Verified 07/31/22 17:52 Chiigrx-QFH-OeY Reductase AdvReac Severe myalgias Verified 07/31/22 17:52 Inhibitor [Lkgtcvj-Rdj-Teg Reductase Inhibitor] codeine AdvReac Nausea Verified 07/31/22 [...] 86.7 H Lymph % (Auto) 8.7 L Carver % (Auto) 4.4 Eos % (Auto) 0.0 [...] Color Urine Clarity Urine pH Ur Specific [place] Urine Protein Urine Glucose (UA) Urine Ketones [...] (Auto) Neut % (Auto) Lymph % (Auto) Carver % (Auto) Eos % (Auto) Baso % [...] Sl. Cloudy Urine pH 6.0 Ur Specific [place] 1.015 Urine Protein 15 H Urine Glucose [...] diffuse nonspecific ST and T wave change. NJ interval, QRS duration and QTc are normal. [...] Provider] - Disposition Disposition: Acute Care Hospital [facility] What to do if you have Problems For any increased pain, shortness of breath, bleeding, nausea or vomiting, chestpain, or any unexpected problems, contact your Primary Care Provider. Call [facility] ([phone]) or report to the closest Emergency Room. Call 911 if necessary. 07/31/222240 <Electronically signed by Jesus Kessler MD> Cosigner Signature (if applicable): CC: Dr. Octavio Reza MD ~ Signed [facility] Work Phone: 1(183) 703-589401-13-2023 Miscellaneous Notes* Telephone Encounter - Davon Wolfe APRN.CNP - 2022 11:30 AM EST Noted, agree * Telephone Encounter - Asmita Tapia RN - 2022 11:15 AM EST Charisse, a nurse with [facility] HH calling to update Dr. Reza that pt's called and notified [facility] that he was to give pt 2 units of insulin according to sliding scale today, however he accidentally gave pt 6 units. Charisse states she instructed to give pt 2-3 crackers with peanut butter and a small glass of orange juice and check pt's blood sugar in approximately 30 minutes. Pt is also getting ready to eat lunch. was advised to call [facility] for any further concerns. No call back needed, if PCP agreeable with instructions given to pt's . Thank you. documented in this encounterCity Hospital01-12-2023 Miscellaneous Notes* Telephone Encounter - Lydia Grande APRN.CNS - 07/29/2022 3:05 PM EST noted * Telephone Encounter - Darlene Mena RN - 07/29/2022 1:10 PM EST Bonnie OT from [facility] calls and states that patient requested only a one time visit. They worked on homesafety and equipment recommendations. Patient is overwhelmed currently and told Bonnie that if patient thinks she needs Bonnie again in a couple of weeks she will give her a call. Darlene Mena RN documented in this encounterCity Hospital01-12-2023 Miscellaneous Notes* Telephone Encounter - MAURICIO Azevedo - 07/29/2022 8:41 AM EST This Sw sent message back to TAMARA 07/26/22 note, in regards to SW order. [facility] has their own SW that makes home visits. This Sw believes that [facility] was looking for order for their own Sw to go and see patient. This SW does not provide home visits. documented in this encounterCity Hospital01-11-2023 Miscellaneous Notes* Addendum Note - Davon [...] From prior message: Marilyn RN calling from [facility] to report plan of care for patient and Alf will visit patient 3 times a week for first week, 2 times a week for 2 weeks and 1 time a week for 3 weeks. [facility] will work with patient on diabetes education and food education. Marilyn states that patient only takes medications when she wants to take medications. Patients blood sugars was in 400's on Tuesday, Tuesday 300's, and this morning 250. Patient is currently taking insulins they way she is supposed to to be taking them. Marilyn has been calling before each meal. [facility] faxed over updated medication list as [...] work with PharmD through [facility] instead of pipe threader. How are her sugars running? 3) Can reschedule follow up * Telephone Encounter - Cayla Lynne LPN - 07/27/2022 2:36 PM EST Renu calling back to check status on message below. Cayla Lynne LPN * Telephone Encounter - Asmita Tapia RN - 07/26/2022 3:12 PM EST Renu, a [facility] nurse calling Dr. Reza with a [...] she did not see eye-to-eye with past pipe threader. Lastly, during this call, this nurse noted pt was to have appt with PCP today but pt states she wasnot told about this appt. Please advise Renu at [phone]. Thank you. documented in this encounterCity Hospital01-11-2023 Miscellaneous Notes* Telephone Encounter - Cesar Mayprudenceefrem ETHAN - 07/28/2022 8:08 AM EST Patient [...] you. Cesar Brush LPN documented in this encounterCity Hospital01-09-2023 Miscellaneous Notes* Telephone Encounter - Lydia Grande APRN.MADELIN - 07/26/2022 4:00 PM EST Noted, agree * Telephone Encounter - Darlene Mena RN - 07/26/2022 1:55 PM EST David PT calling from [facility] to report plan of care for patient and physical therapy will visit patient 2 times a week for 3 weeks. Physical therapy will work with patient on functional mobility training. No Call back needed if agreeable, Darlene Mena RN documented in this encounterCity Hospital01-02-2023 Miscellaneous Notes* Telephone Encounter - Octavio [...] she gets plenty of liquids. 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 Does have a moist cough, but improved since hospital stay. No fever. BS this morning 229, which is much improved since hospital (BS ran 400's). Patient reports her fingers have been cold when taking POX reading, and will make surethey are warm before checking POX. Also has pink fingernail gabonese on, and will remove from one finger [...] been? Please advise patient. documented in this encounterCity Hospital12-30-2022 Miscellaneous Notes* Telephone Encounter - Daina Kaye RN - 07/16/2022 7:15 PM EST Reason for Call: elevated blood sugar of 304, disoriented, sob, 02 sat is 86-89% while using oxygen Outcome: Pt and her both advised to call 911 now. They both agree. Reason for Disposition Acting confused (e.g., disoriented, slurred speech) Protocols used: Diabetes - High Blood Lrqgh-TBKAU-FA Pt reports her blood sugar was elevated [...] to call 911 now. documented in this encounterCity Hospital12-05-2022 Miscellaneous Notes* Telephone Encounter - Patricia [...] notify patient. Payton Soliman documented in this encounterCity Hospital11-21-2022 History of Present illness Narrative* Vladimir [...] Vladimir Kitchen Associated attestation - Narendra Nolasco formerly [facility] - 06/07/2022 3:49 PM EST The [...] PharmD, MEd, BCPS, CDCES documented in this encounterCity Hospital11-21-2022 Miscellaneous Notes* Telephone Encounter - Lydia Grande APRN.REAL ESTATE LEGAL SECRETARY - 06/07/2022 1:20 PM EST Noted, agree. [...] questions/concerns. Pattie Giles RN documented in this encounterCity Hospital11-01-2022 Miscellaneous Notes* Telephone Encounter - Octavio Reza MD - 05/18/2022 9:56 AM EDT Ordered during appointment * Telephone Encounter - Parris Eckert RN - 05/14/2022 3:02 PM EDT Pt has an appointment with provider on 05/18/22. Pt is asking if provider wanted labs ordered. Please call Pt once labs are placed. documented in this encounterCity Hospital11-01-2022 History of Present illness Narrative* Octavio Reza MD - 05/18/2022 9:50 AM EDT This note was created using NoteWriter. Subjective Attila Kidd is a 76 year [...] Swelling overall controlled Follows with Dr. Marin (flattening press operator) every 2 months. Has HCDPOA and LW. [...] 1 capsule by mouth twice daily. Insulin Owanka, Disposable, (BD ULTRA-FINE FADY PEN NEEDLE) 32 [...] 65+ Octavio Reza MD documented in this encounterCity Hospital09-17-2022 Miscellaneous Notes* Telephone Encounter - Pattie Giles RN - 04/03/2022 12:00 PM EDT See previous TE with same request for vials. Awaiting insurance authorization to dispense. Pattie Giles RN * Telephone Encounter - Rehana Beck Pss - 04/03/2022 11:52 AM EDT Patient call sent from [facility] as a refill, but when speaking with patient she said her late night shots with Humalin are a nightmare and would like to go back on vials. Please address this with patient.Call sent to triage nurse after speaking with patient. documented in this encounterCity Hospital09-17-2022 Miscellaneous Notes* Telephone Encounter - Latrell Medina RN - 04/03/2022 11:44 AM EDT Pt calling with request for a prescription for Humalog Vials. Patient denies any new or worsening symptoms of which a provider is not aware: Yes. Conference pt to Dr. Reza's office for railway yard assistant with prescription. documented in this encounterCity Hospital09-14-2022 Miscellaneous Notes* Telephone Encounter - Octavio [...] Eckert RN - 03/31/2022 1:54 PM EDT [facility] called in and reports [...] you. Asmita Tapia RN documented in this encounterCity Hospital08-01-2022 Instructions* Patient Instructions* Lydia Grande APRN.CNS - 02/15/2022 3:06 PM EDT Decrease caffeine intake. Drink plenty of fluids. Think about the CGM - continuous glucose monitor. documented in this encounterCity Hospital08-01-2022 History of Present illness Narrative* Lydia [...] Both Lower Extremities She was seen at [facility] emergency department on February 11, 2022 [...] to follow-up with PCP as needed. Sees [facility] provider, Areli Estevez. HTN: She [...] HENT: Head: Normocephalic and atraumatic. Mouth/Throat: Lips: [place]. Mouth: Mucous membranes are moist. Eyes: Conjunctiva/sclera: [...] DM Code E10.8, E11.610 Insulin: Yes Insulin Owanka, Disposable, (BD ULTRA-FINE FADY PEN NEEDLE) 32 [...] immunization - ICD9: V03.89, ICD10: Z23 - PFIZER[employer] COVID-19 VACCINE, AGE 12+ YR (PAIGE TOP) - TDAP VACCINE AGE 7+ IM Advised: Decrease caffeine intake. Drink plenty of fluids. Think about the CGM - continuous glucose monitor. Lydia Grande APRN.CNS documented in this encounterCity Hospital07-28-2022 Miscellaneous Notes* Telephone Encounter - Octavio Reza MD - 02/11/2022 1:55 PM EDT Noted Reasonable for her to have her heater engineer helper decide on plan of care for noted [...] evaluation. Patient catherine was going to call Territory Sales Manager office, Dr Lott before she would go to the ER. documented in this encounterCity Hospital07-07-2022 Miscellaneous Notes* Telephone Encounter - Ritika Lopez LPN - 01/21/2022 4:12 PM EDT Order faxed to [facility] scheduling. * Telephone Encounter - Lydia Grande APRN.CNS - 01/21/2022 4:06 PM EDT ok * Telephone Encounter - Darlene Mena RN - 01/20/2022 11:27 AM EDT Patient calls and is asking about mammogram order. Please place order and fax to [facility]. Please review and advise, Darlene Mena RN documented in this encounterCity Hospital06-27-2022 History of Present illness Narrative* Octavio Reza MD - 01/11/2022 3:15 PM EDT Images from the original note were not included. This note was created using Embibe. Subjective Attila Kidd is a 76 year [...] Lantus, not Basaglar per patient preference Insulin Owanka, Disposable, (BD ULTRA-FINE FADY PEN NEEDLE) 32 [...] TABLET Octavio Reza MD documented in this encounterCity Hospital06-08-2022 History of Present illness Narrative* Guillermo Maurer MD - 12/23/2021 4:28 PM EDT This note was created using GameBuilder Studioriter. Subjective Patient presents with: Abdominal Pain PCP [...] Lantus, not Basaglar per patient preference Insulin Owanka, Disposable, (BD ULTRA-FINE FADY PEN NEEDLE) 32 [...] (FLONASE) 50 mcg/actuation nasal spray Use 1 Converse in each nostril once daily. (Patientnot taking: [...] recommendations. Guillermo Maurer MD documented in this encounterCity Hospital06-02-2022 Instructions* Patient Instructions* Kristyn Flores - [...] increases, despite treatment. Copyright 1994 by [employer] documented in this encounterCity Hospital06-02-2022 History of Present illness Narrative* Wanda Phillips APRN.TITLE CURATIVE SPECIALIST - 12/17/2021 1:12 PM EDT Subjective Attila [...] history is provided by the patient. No loom mechanic was used. Arm Pain The pain is [...] (FLONASE) 50 mcg/actuation nasal spray Use 1 Converse in each nostril once daily. blood sugar [...] Lantus, not Basaglar per patient preference Insulin Owanka, Disposable, (BD ULTRA-FINE FADY PEN NEEDLE) 32 [...] AP/LAT RIGHT Radiologist IMPRESSION: No acute process. Automotive Lot Attendant: EVIE Transcribe Date/Time: Dec 17 2021 1:44P Dictated by : CESAR REYES MD - X-ray is negative for fracture. - Wear compression wrap and sling as needed for comfort. May remove at night. - Take Ibuprofen as needed for pain. - Follow up with orthopedics if pain worsens or persists past 3 days. - CONSULT PANEL TO ORTHOPAEDICS RENATA Prado student TEACHING PROVIDER (Physician/PA/WASTEWATER PLANT CIVIL ENGINEER) NOTE OF PERSONAL INVOLVEMENT IN CARE: I have personally seen and examined the patient and performed the medical decision-making components. I have reviewed the Advanced Practice Registered Nurse (WASTEWATER PLANT CIVIL ENGINEER) Student's documentation and verified the findings in the note as written. Any additions or changes are noted in bold/italics. Signature: Wanda Phillips Date: 12/17/2021 Time: 2:06 PM documented in this encounterCity Hospital06-02-2022 Miscellaneous Notes* Telephone Encounter - Lydia Grande APRN.CNS - 12/17/2021 12:55 PM EDT noted, agree [...] Rochelle M Lentine, RN documented in this encounterCity Hospital06-01-2022 History of Present illness Narrative* RT [...] 16, 2021 9:40 AM documented in this encounterCity Hospital06-01-2022 Miscellaneous Notes* Telephone Encounter - Eleni [...] advise. Eleni Serrano LPN documented in this encounterCity Hospital05-20-2022 Miscellaneous Notes* Telephone Encounter - Lydia [...] pcp will call back. documented in this encounterCity Hospital04-22-2022 Miscellaneous Notes* Telephone Encounter - Rosette Jackson LPN - 11/06/2021 10:20 AM EDT Spoke to Dr Carmichael and updated patient on results, To repeat colonoscopy in 5 years. * Telephone Encounter - Rosette Jackson LPN - 11/06/2021 8:10 AM EDT Patient called asking for results from colonoscopy. [phone] documented in this encounterCity Hospital04-14-2022 Nurse Note* Dafne Santana RN - [...] answered. Amanda Santiago RN documented in this encounterCity Hospital04-14-2022 History and physical note * Holland [...] (FLONASE) 50 mcg/actuation nasal spray Use 1 Converse in each nostril once daily. blood sugar [...] Lantus, not Basaglar per patient preference Insulin Owanka, Disposable, (BD ULTRA-FINE FADY PEN NEEDLE) 32 [...] entered by the nurse and reviewed by [facility] Nursing Notes: Serina Catherine RN 09/21/2021 3:38 [...] 2021 TIME: 7:53 AM documented in this encounterCity Hospital04-12-2022 Miscellaneous Notes* Telephone Encounter - CHRISTOPHER [...] high. Rakel Agosto LPN documented in this encounterCity Hospital04-12-2022 Miscellaneous Notes* Telephone Encounter - Lydia [...] reschedule. Radha Lacy RN documented in this encounterCity Hospital04-11-2022 Miscellaneous Notes* Telephone Encounter - Ritika [...] BP has been running high see below: 3-17-22 AM 129/68 PM 155/86 3-18-22 Am 168/88 PM 149/78 3-19-22 Am 149/75 PM 159/79 3-20-22 AM 154/85 PM 149/81 3--22 AM 136/72 PM 143/67 3-22-22 AM 144/70 PM 157/82 3-23-22 AM 144/74 PM 155/78 3-24-22 AM 149/78 PM 158/83 3-25-22 AM 150/81 PM 147/80 3-26-22 AM 157/78 3-27-22 AM 154/80 PM 158/87 4-3-22 AM 161/84 PM 152/83 4-4-22 AM 144/77 PM 151/81 4-5-22 AM 150/89 PM 158/89 4-6-22 AM 61/85 PM 153/81 4-7-22 AM 145/79 PM 150/80 4-11-22 AM 140/83 Missed a few days above. Pt would like to know if she can increase medication now before her scope to get her numbers lower.She is afraid with her BP above he is going to cancel day of test after she has prepped and gets inthere. Please advise pt today if possible. Cayla Lynne LPN documented in this encounterCity Hospital04-11-2022 Miscellaneous Notes* Telephone Encounter - Cayla [...] insulins/medications prior to procedure. Please advise patient. BIBI: [phone]. Thank you. documented in this encounterCity Hospital04-07-2022 Miscellaneous Notes* Telephone Encounter - Asmita [...] you. Asmita Tapia RN documented in this encounterCity Hospital03-08-2022 Miscellaneous Notes* Telephone Encounter - Shin Garay - 09/22/2021 9:54 AM EST 10-29-2021 [facility] documented in this encounterCity Hospital02-25-2022 History of Present illness Narrative* Octavio Reza MD - 09/11/2021 11:26 AM EST This note was created using NoteWriter. Subjective Attila Kidd is a 76 year [...] (FLONASE) 50 mcg/actuation nasal spray Use 1 Converse in each nostril once daily. blood sugar [...] Lantus, not Basaglar per patient preference Insulin Owanka, Disposable, (BD ULTRA-FINE FADY PEN NEEDLE) 32 [...] SURGERY Octavio Reza MD documented in this encounterCity Hospital10-25-2021 History of Past illness Narrative* Problem [...] this encounter (statuses as of 09/29/2023) [facility]-25-[facility] History of Past illness Narrative* Problem Noted Date Diagnosed Date Resolved Date OVERWEIGHT 05/11/2021 Last Assessment & Plan: Has made dietary changes since recent hospitalization, decreased carbs, feels better, plans to work harder on wt loss. Getting 3 wheeled bike so she can go on trails, not just exercise bike indoors. documented as of this encounter (statuses as of 10/03/2023) [facility]10-25-[facility]21 History of Past illness Narrative* Problem Noted Date Diagnosed Date Resolved Date OVERWEIGHT 05/11/2021 Last Assessment & Plan: Has made dietary changes since recent hospitalization, decreased carbs, feels better, plans to work harder on wt loss. Getting 3 wheeled bike so she can go on trails, not just exercise bike indoors. documented as of this encounter (statuses as of 10/18/2023) [facility]21 History of Past illness Narrative* Problem Noted Date Diagnosed Date Resolved Date OVERWEIGHT 05/11/2021 Last Assessment & Plan: Has made dietary changes since recent hospitalization, decreased carbs, feels better, plans to work harder on wt loss. Getting 3 wheeled bike so she can go on trails, not just exercise bike indoors. documented as of this encounter (statuses as of 10/24/2023) [facility] of [facility] Narrative* Problem Noted Date Diagnosed Date Resolved Date OVERWEIGHT 05/11/2021 Last Assessment & Plan: Has made dietary changes since recent hospitalization, decreased carbs, feels better, plans to work harder on wt loss. Getting 3 wheeled bike so she can go on trails, not just exercise bike indoors. documented as of this encounter (statuses as of 10/30/2023) [facility] History of Past illness Narrative* Problem Noted Date Diagnosed Date Resolved Date OVERWEIGHT 05/11/2021 Last Assessment & Plan: Has made dietary changes since recent hospitalization, decreased carbs, feels better, plans to work harder on wt loss. Getting 3 wheeled bike so she can go on trails, not just exercise bike indoors. documented as of this encounter (statuses as of 10/31/2023) [facility] History of Past illness Narrative* Problem Noted Date Diagnosed Date Resolved Date OVERWEIGHT 05/11/2021 Last Assessment & Plan: Has made dietary changes since recent hospitalization, decreased carbs, feels better, plans to work harder on wt loss. Getting 3 wheeled bike so she can go on trails, not just exercise bike indoors. documented as of this encounter (statuses as of 11/01/2023) [facility] History of Past illness Narrative* Problem Noted Date Diagnosed Date Resolved Date OVERWEIGHT 05/11/2021 Last Assessment & Plan: Has made dietary changes since recent hospitalization, decreased carbs, feels better, plans to work harder on wt loss. Getting 3 wheeled bike so she can go on trails, not just exercise bike indoors. documented as of this encounter (statuses as of 11/01/2023) [facility] August 02, 2022 12:37pm Note Date/Time August 02, 2022 1 2:32pm [facility] Medical Records Department [address] [place] [address] Transfer to [facility] MR#: [id number] Acct: [id number] Name: ATTILA KIDD Rep #:[id number] : 1945 77 From: Zay Escalera DO PCP: Dr. Octavio Reza MD Status:AD M IN Certification of patient admission REQUIRED AT TIME OF ADMISSION. I CERTIFY THAT POST-HOSPITAL ECF SERVICES ARE REQUIRED TO BE GIVEN ON AN IN-PATIENT BASIS BECAUSE OF THE ABOVE NAMED PATIENT'S NEED FOR PRISON CARE ON A CONTINUING BASIS FOR THE [...] - Requested for PT OT eval and outreach and education social worker to assist with discharge planning. To SNF Allergies/Procedures Done in Hospital Allergies pravastatin Allergy (Unknown, Verified 07/31/22 23:52) unknown rosuvastatin [From Crestor] Allergy (Unknown, Verified 07/31/22 23:52) myalgias simvastatin Allergy (Unknown, Verified 07/31/22 23:52) unknown escitalopram Allergy (Verified 07/31/22 23:52) Other hydrochlorothiazide Allergy (Verified 07/31/22 23:52) Other Wfoeedd-DTC-GaO Reductase Inhibitor [Qlruuok-Ymp-Zqd Reductase Inhibitor] Adverse Reaction (Severe, Verified 07/31/22 [...] in before D/C Order can be placed): Alf Facility 08/02/22 1237 <Electronically signed by Zay Escalera DO> Cosigner Signature (if applicable): CC: Dr. Tawanda Herring MD; Dr. Octavio Reza MD; Dr. Daisy Gan MD ~ [facility] Work Phone: Discharge summary Author Dr. Escalera [facility] August 02, 2022 12:39pm Note Date/Time August 02, 2022 1 2:39pm [facility] Medical Records Department [address] [place] [id number] Discharge Summary 08/02/22 1237 MR#: [id number] Acct: [id number] Name: ATTILA KIDD Rep #:[id number] : 1945 77 From: Zay Escalera DO PCP: Dr. Octavio Reza MD Status:AD M IN Location: [facility] [id number] Providers Date of Admission: 07/31/22 Primary [...] - Requested for PT OT eval and outreach and education social worker to assist with discharge planning. [...] 79.8 H, Lymph % (Auto) 11.1 L, Carver % (Auto) 8.1, Eos % (Auto) 0.4, Baso % (Auto) 0.2, Absolute Neuts (auto)4.0, Absolute Lymphs (auto) 0.56 L, Nucleated RBC % 0.6 08/02/22 06:00: Sodium 137, Potassium 3.7, Chloride 101, Carbon Dioxide 26.0, Anion Gap 10, BUN 9, Creatinine 0.66, Estim Creat Clear Calc 49.24, Est GFR (MDRD) Af Amer 111, Est GFR (MDRD) Non-Af 92, BUN/Creatinine Ratio 13.5, [id number] H, Calcium 8.0 L, Phosphorus 2.4 L, [...] in before D/C Order can be placed): Alf Facility Charges/Coding Visit Charges Inpatient E&M: 47906 Disch Hosp 08/02/22 1239 <Electronically signed by Zay Escalera DO> Cosigner Signature (if applicable): CC: Dr. Zay Escalera DO; Dr. Octavio Reza MD~ Signed [facility] Work Phone: Evaluation note* Diagnosis Screening for colon cancer Special screening for malignant neoplasms, colon documented in this encounter [facility] note* Diagnosis Screening for colon cancer- Primary Special screening for malignant neoplasms, colon documented in this encounter [facility] note* Diagnosis Type I diabetes mellitus [...] malignant neoplasms, colon documented in this encounter [facility] note* Diagnosis Chest pain, unspecified type- Primary documented in this encounter [facility] note* Diagnosis Chest pain, unspecified type documented in this encounter [facility] note* Diagnosis Pain of right upper extremity- Primary documented in this encounter [facility] note* Diagnosis Pain of upper abdomen- Primary Abdominal pain, other specified site Alternating constipation and diarrhea Other symptoms involving digestive system documented in this encounter [facility] note* Diagnosis Breast cancer screening by mammogram- Primary Dense breasts Inconclusive mammogram documented in this encounter [facility] note* Diagnosis Onset Date Resolution Status Paroxysmal SVT (supraventricular tachycardia) acute Essential hypertension chron ic Hyperlipidemia chronic [facility] Work Phone: Evaluation note* Diagnosis Palpitations- Primary Encounter for immunization Need for other specified prophylactic vaccination against single bacterial disease documented in this encounter [facility] note* Diagnosis Type I diabetes mellitus with manifestations (HCC)- Primary 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, not stated as uncontrolled Lipomas Vitamin D deficiency Unspecified vitamin D deficiency Insomnia, unspecified type [facility] Type I diabetes mellitus [...] bacterial disease [facility] Diagnosis Onset Date Resolution Status Paroxysmal SVT (supraventricular tachycardia) acute Essential hypertension chron ic Hyperlipidemia chronic Hypoxia acute [facility] Work Phone: Evaluation note* Diagnosis Onset Date Resolution Status Paroxysmal SVT (supraventricular tachycardia) acute Essential hypertension chron ic Hyperlipidemia chronic Hypoxia acute Acute hypokalemia acute Acute respiratory failure with hypoxia acute Bilateral pneumonia acute Hyperglycemia due to type 2 diabetes mellitus acute 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 Essential hypertension chron ic Hyperlipidemia chronic [facility] Work Phone: Evaluation note* Diagnosis Type I diabetes mellitus with manifestations (HCC)- Primary 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, not stated as uncontrolled Stress at home Unspecified family circumstance [facility] Onset Date Resolution Status Paroxysmal SVT (supraventricular tachycardia) acute Essential hypertension chron ic Hyperlipidemia chronic Hypoxia acute Acute respiratory failure with hypoxia acute Bilateral pneumonia acute Hyperglycemia due to type 2 diabetes mellitus acute 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 Essential hypertension chron ic Hyperlipidemia chronic Acute hypokalemia resolved Bilateral pneumonia acute Hypoxia acute Acute hypokalemia resolved [facility] Work Phone: Evaluation note* Diagnosis Pneumonia due to COVID-19 virus- Primary Hypoxemia 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, not stated as uncontrolled Moderate persistent asthma without complication Unspecified asthma [facility] Diagnosis Essential hypertension- Primary Unspecified essential hypertension Palpitations 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, not stated as uncontrolled documented in this encounter [facility] note* Diagnosis Cellulitis of female genitalia Unspecified inflammatory disease of cervix, vagina, and vulva documented in this encounter [facility] note* Diagnosis Onset Date Resolution Status Hypoxia resolved Acute hypokalemia resolved Acute respiratory failure with hypoxia resolved Asthma exacerbation in COPD resolved Bilateral pneumonia resolved Acute hypokalemia resolved Bilateral pneumonia resolved Hypoxia resolved [facility] Work Phone: Evaluation note* Diagnosis Labial abscess- Primary Other abscess of vulva Bradycardia Other specified cardiac dysrhythmias documented in this encounter [facility] note* Diagnosis Onset Date Resolution Status CRAWLEY (dyspnea on exertion) ac pauma [facility] Work Phone: Evaluation note* Diagnosis Psoriasis of scalp- Primary Other psoriasis Seborrheic dermatitis Seborrheic dermatitis, unspecified Essential hypertension Unspecified essential hypertension Palpitations History of delirium Personal history of other mental disorder documented in this encounter [facility] note* Diagnosis Screening mammogram for breast cancer- Primary documented in this encounter [facility] note* Diagnosis Palpitations documented in this encounter [facility] noteNo assessment information availableWC[facility] Work Phone: evaluation note* Diagnosis Paroxysmal SVT (supraventricular tachycardia)- Primary Paroxysmal supraventricular tachycardia Palpitations documented in this encounter [facility] note* Diagnosis Severe persistent asthma without complication documented in this encounter [facility] note* Diagnosis Severe persistent asthma without complication- Primary Obesity, Class III, BMI 40-49.9 (morbid obesity) (HCC) Morbid obesity documented in this encounter [facility] note* Diagnosis Type I diabetes mellitus [...] single bacterial disease [facility] Diagnosis Polyarthralgia- Primary Pain in joint, multiple sites 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, not stated as uncontrolled Vitamin D deficiency Unspecified vitamin D deficiency Pain in finger of both hands [facility]* Diagnosis Polyarthralgia- Primary Pain in joint, multiple sites Pain in finger of both hands Elevated C-reactive protein (CRP) Elevated sedimentation rate [facility]* Diagnosis Mild persistent asthma without complication- Primary Unspecified asthma Morbid obesity (HCC) Morbid obesity THAIS (obstructive sleep apnea) Obstructive sleep apnea (adult) (pediatric) [facility]* Diagnosis 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, not stated as uncontrolled Charcot foot due to 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, not stated as uncontrolled [facility]* Diagnosis Onset Date Resolution Status Essential hypertension chron ic Hyperlipidemia chronic Paroxysmal SVT (supraventricular tachycardia) [facility] Work Phone: Evaluation note* Diagnosis PSVT (paroxysmal supraventricular tachycardia) (HCC)- Primary Paroxysmal supraventricular tachycardia PAC (premature atrial contraction) Supraventricular premature beats Primary insomnia Persistent disorder of initiating or maintaining sleep [facility] Diagnosis Pain and swelling of right lower leg- Primary [facility] Diagnosis Pain and swelling of right lower leg [facility] Diagnosis Type I diabetes mellitus with manifestations (HCC)- Primary 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, not stated as uncontrolled Encounter for medication management Encounter for long-term (current) use of other medications documented in this encounter [facility] note* Diagnosis 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)- Primary 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, not stated as uncontrolled [facility]* Diagnosis Vitamin D deficiency Unspecified vitamin D deficiency [facility] Diagnosis Diabetes mellitus type 1, controlled, without complications (HCC)- Primary Type I (juvenile type) diabetes mellitus without mention of complication, not stated as uncontrolled 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, not stated as uncontrolled [facility] Diagnosis Localized swelling, mass and lump, neck- Primary Swelling, mass, or lump in head and neck Cutaneous horn Other specified dermatoses [facility] Diagnosis 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)- Primary 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, not stated as uncontrolled [facility] Diagnosis Diabetes mellitus type 1, controlled, without complications (HCC) Type I (juvenile type) diabetes mellitus without mention of complication, not stated as uncontrolled [facility] Diagnosis Vitamin D deficiency- Primary Unspecified vitamin D deficiency 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, not stated as uncontrolled [facility] Diagnosis Diabetes mellitus type 1, controlled, without complications (HCC)- Primary Type I (juvenile type) diabetes mellitus without mention of complication, not stated as uncontrolled [facility] Diagnosis 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)- Primary 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, not stated as uncontrolled [facility] Diagnosis HYPERLIPIDEMIA NEC/NOS Other and unspecified [...] breast cancer- Primary [facility] Diagnosis HYPERLIPIDEMIA NEC/NOS Other and unspecified [...] Shortness of breath [facility]* Diagnosis HYPERLIPIDEMIA NEC/NOS Other and unspecified [...] stated as uncontrolled documented in this encounter [facility] note* Diagnosis HYPERLIPIDEMIA NEC/NOS Other and [...] Seborrheic dermatitis, unspecified [facility] Diagnosis HYPERLIPIDEMIA NEC/NOS Other and unspecified [...] as uncontrolled [facility] Diagnosis HYPERLIPIDEMIA NEC/NOS Other and unspecified [...] complication Unspecified asthma documented in this encounter [facility] note* Diagnosis HYPERLIPIDEMIA NEC/NOS Other and [...] apnea (adult) (pediatric) documented in this encounter [facility] note* Diagnosis HYPERLIPIDEMIA NEC/NOS Other and [...] stated as uncontrolled documented in this encounter [facility] note* Diagnosis HYPERLIPIDEMIA NEC/NOS Other and [...] stated as uncontrolled documented in this encounter [facility] note* Diagnosis HYPERLIPIDEMIA NEC/NOS Other and [...] right upper extremity [facility] Diagnosis HYPERLIPIDEMIA NEC/NOS Other and unspecified [...] of unspecified site documented in this encounter [facility] note* Diagnosis HYPERLIPIDEMIA NEC/NOS Other and [...] of unspecified site documented in this encounter [facility] note* Diagnosis HYPERLIPIDEMIA NEC/NOS Other and [...] stated as uncontrolled [facility] Diagnosis HYPERLIPIDEMIA NEC/NOS Other and unspecified [...] Other premature beats documented in this encounter [facility] note* Diagnosis HYPERLIPIDEMIA NEC/NOS Other and [...] stated as uncontrolled documented in this encounter [facility] note* Diagnosis HYPERLIPIDEMIA NEC/NOS Other and [...] both lower extremities documented in this encounter [facility] note* Diagnosis HYPERLIPIDEMIA NEC/NOS Other and [...] stated as uncontrolled documented in this encounter [facility] note* Diagnosis HYPERLIPIDEMIA NEC/NOS Other and [...] stated as uncontrolled [facility] Diagnosis HYPERLIPIDEMIA NEC/NOS Other and unspecified [...] hematuria Acute cystitis documented in this encounter [facility] note* Diagnosis HYPERLIPIDEMIA NEC/NOS Other and [...] stated as uncontrolled [facility] Diagnosis HYPERLIPIDEMIA NEC/NOS Other and unspecified [...] stated as uncontrolled documented in this encounter [facility] note* Diagnosis HYPERLIPIDEMIA NEC/NOS Other and [...] stated as uncontrolled documented in this encounter [facility] note* Diagnosis HYPERLIPIDEMIA NEC/NOS Other and [...] stated as uncontrolled [facility] Diagnosis HYPERLIPIDEMIA NEC/NOS Other and unspecified [...] excess calories (HCC) documented in this encounter [facility] note* Diagnosis HYPERLIPIDEMIA NEC/NOS Other and [...] Seborrheic dermatitis, unspecified [facility]* Diagnosis HYPERLIPIDEMIA NEC/NOS Other and unspecified [...] stated as uncontrolled documented in this encounter [facility] note* Diagnosis HYPERLIPIDEMIA NEC/NOS Other and [...] stated as uncontrolled documented in this encounter [facility] note* Diagnosis HYPERLIPIDEMIA NEC/NOS Other and [...] without complication (HCC) documented in this encounter [facility] note* Diagnosis HYPERLIPIDEMIA NEC/NOS Other and [...] of foot (HCC) documented in this encounter [facility] note* Diagnosis HYPERLIPIDEMIA NEC/NOS Other and [...] comorbidity present (HCC) documented in this encounter [facility] note* Diagnosis HYPERLIPIDEMIA NEC/NOS Other and [...] stated as uncontrolled documented in this encounter [facility] note* Diagnosis HYPERLIPIDEMIA NEC/NOS Other and [...] stated as uncontrolled documented in this encounter [facility] note* Diagnosis HYPERLIPIDEMIA NEC/NOS Other and [...] stated as uncontrolled documented in this encounter [facility] note* Diagnosis HYPERLIPIDEMIA NEC/NOS Other and [...] breast cancer- Primary documented in this encounter [facility] note* Diagnosis HYPERLIPIDEMIA NEC/NOS Other and [...] Unspecified essential hypertension [facility] Diagnosis HYPERLIPIDEMIA NEC/NOS Other and unspecified [...] stated as uncontrolled [facility] Additional Instructions [facility] Work Phone: Hospital Discharge instructions Additional Instructions Your chest x-ray shows no sign of pneumonia and COVID/flu/RSV swab is negative. I suspect this is a different viral upper respiratory infection. Use nasal saline and [id number] congestion medication as needed. Follow-up with your doctor. If symptoms worsen return to ER.[facility] Work Phone: Hospital Discharge instructions Additional Instructions Follow-up with endocrinology next week as scheduled.[facility] Work Phone: Hospital Discharge instructions Additional Instructions Follow-up with your doctor in outpatient setting. Return with worsening symptoms or any concerns. Your CT scan did not show anything surgical going on. Blood work was largely normal. Return with worsening symptoms or other concerns. Follow-up on urine culture with your primary care physicianWCherrington Hospital Work Phone: Hospital Discharge instructions Additional Instructions You can take [id number] Imodium as needed. Drink plenty of fluids. [...] the small amount of blood in your stool.[facility] Work Phone: Hospital Discharge instructions Additional Instructions Left lower leg ultrasound negative for any blood clots. Bruising should heal with time. 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 Call them with a log of your blood sugars as you have been. Keep a log of your blood sugars. Return with fever, chills, nausea, vomiting, abdominal pain, new or worsening symptoms.[facility] Work Phone: Hospital Discharge instructions Additional Instructions Your exam is good today. The labs you had done in the middle of November were good also. Your blood sugar here today was 227. Take your insulin per your sliding scale when you get home.[facility] Work Phone: Hospital Discharge instructions Additional Instructions Today your tests look normal. 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 If symptoms significantly change or worsen please come back to the ER.[facility] Work Phone: Hospital Discharge instructionsAdditional Instructions Take your insulin dose tonight as scheduledWCherrington Hospital Work Phone: Hospital Discharge instructionsAdditional Instructions Your blood sugar was 111[facility] Work Phone: Reason for referral (narrative)* Outpatient Procedure (Routine) - Closed Specialty Diagnoses / Procedures Referred By Contrick t Referred To Contact [facility] Diagnoses Screening for colon cancer Procedures COLONOSCOPY SCREENING COLONOSCOPY FLX DX W/COLLJ SPEC WHEN PFRMD Holland Carmichael MD [address] [place] [address] [facility] [address] [place] [address] Referral ID Status Reason Start Date Expiration Date V isits Requested Visits Authorized [id number] Closed Auto-Generate d Referral 09/22/2021 09/22/2022 1 1 [facility] for referral (narrative)* Outpatient Procedure (Routine) - Closed Specialty Diagnoses / Procedures Referred By Belgica jalloh Referred To Contact [facility] Diagnoses Screening for colon cancer Procedures COLONOSCOPY SCREENING COLONOSCOPY FLX DX W/COLLJ SPEC WHEN PFRMD Holland Carmichael MD [address] [facility] [place] [address] [facility] [address] [place] [address] Referral ID Status Reason Start Date Expiration Date V isits Requested Visits Authorized [id number] Closed Auto-Generate d Referral 09/22/2021 09/22/2022 1 1 [facility] for referral (narrative)* Diagnostic Procedure Only (Routine) - Pending Review Specialty Diagnoses / Procedures Referred By Belgica jalloh Referred To Contact [facility] Diagnoses Breast cancer screening by mammogram Dense breasts Procedures KELLY SCREENING W MINAL SCREENING DIGITAL BREAST TOMOSYNTHESIS BI SCREENING MAMMOGRAPHY BI 2-VIEW BREAST INC CAD Lydia Grande APRN.[employer]ARY [address] [place] [address] [facility] [address] [place] [address] Referral ID Status Reason Start Date Expiration Date Visits Requested Visits Authorized [id number] Pending Review Auto-Generat ed Referral 01/21/2022 02/19/2023 1 1 [facility] for referral (narrative)* Diagnostic Procedure Only (Routine) - Pending Review Specialty Diagnoses / Procedures Referred By Belgica jalloh Referred To Contact [facility] Diagnoses Screening mammogram for breast cancer Procedures KELLY SCREENING W MINAL SCREENING DIGITAL BREAST TOMOSYNTHESIS BI SCREENING MAMMOGRAPHY BI 2-VIEW BREAST INC Octavio Tolbert MD [address] [place] [address] [facility] [address] [place] [address] Referral ID Status Reason Start Date Expiration Date Visits Requested Visits Authorized [id number] Pending Review Auto-Generat ed Referral 02/21/2023 03/22/2024 1 1 [facility] for referral (narrative)* Outpatient Procedure (Routine) - Closed Specialty Diagnoses / Procedures Referred By Contac t Referred To [facility] [place] Diagnoses Severe persistent asthma without complication Procedures NITRIC OXIDE, EXHALED NITRIC OXIDE GAS DETERMINATION Tierney Nunez PA-C [address] [place] [address] [address] Referral ID Status Reason Start Date Expiration Date V isits Requested Visits Authorized [id number] Closed Auto-Generate d Referral 06/23/2023 07/22/2024 1 1 * Outpatient Procedure (Routine) - Closed Specialty Diagnoses / Procedures Referred By Contac t Referred To [facility] [place] Diagnoses Severe persistent asthma without complication Procedures SPIROMETRY BASELINE ONLY SPMTRY W/VC EXPIRATORY MYRON W/WO MXML VOL VNTJ Tierney Nunez PA-C [address] [place] [address] [address] Referral ID Status Reason Start Date Expiration Date V isits Requested Visits Authorized [id number] Closed Auto-Generate d Referral 06/23/2023 07/17/2023 1 1 * Outpatient Procedure (Routine) - Closed Specialty Diagnoses / Procedures Referred By Contac t Referred To [facility] [place] Diagnoses Severe persistent asthma without complication Procedures OXIMETRY WITH AMBULATION NONINVASIVE EAR/PULSE OXIMETRY MULTIPLE DETER Tierney Nunez PA-C [address] [place] [address] [address] Referral ID Status Reason Start Date Expiration Date V isits Requested Visits Authorized [id number] Closed Auto-Generate d Referral 06/23/2023 07/17/2023 1 1 [facility] for referral (narrative)* Outpatient Procedure (Routine) - Authorized Specialty Diagnoses / Procedures Referred By Contac t Referred To [facility] Diagnoses Mild persistent asthma without complication Procedures NITRIC OXIDE, EXHALED NITRIC OXIDE GAS DETERMINATION Christine Bianchi MD [address] [facility] [place] [id number] Respiratory [address] [address] Referral ID Status Reason Start Date Expiration Date Visits Requested Visits Authorized [id number] Authorized Auto-Generat ed Referral 09/22/2023 10/21/2024 1 1 [facility] for referral (narrative)* Diagnostic Procedure Only (Urgent) - Closed Specialty Diagnoses / Procedures Referred By Contac t Referred To Contact [facility] Diagnoses Pain and swelling of right lower leg Procedures US DVT LOWER RIGHT DUP-SCAN XTR VEINS UNILATERAL/LIMITED STUDY Tamika Morris MD [facility] [place] [address] Us Imaging [facility] Referral ID Status Reason Start Date Expiration Date V isits Requested Visits Authorized [id number] Closed Auto-Generate d Referral 10/31/2023 11/29/2024 1 1 [facility] for referral (narrative)* Diagnostic Procedure Only (Urgent) - Closed Specialty Diagnoses / Procedures Referred By Contac t Referred To Contact [facility] Diagnoses Pain and swelling of right lower leg Procedures US DVT LOWER RIGHT DUP-SCAN XTR VEINS UNILATERAL/LIMITED STUDY Tamika Morris MD [address] [place] [address] [place] [address] Referral ID Status Reason Start Date Expiration Date V isits Requested Visits Authorized [id number] Closed Auto-Generate d Referral 10/31/2023 11/29/2024 1 1 [facility] for referral (narrative)* Diagnostic Procedure Only (Routine) - New Request Specialty Diagnoses / Procedures Referred By Contac t Referred To Contact [facility] Diagnoses Screening mammogram for breast cancer Procedures KELLY SCREENING W MINAL SCREENING DIGITAL BREAST TOMOSYNTHESIS BI SCREENING MAMMOGRAPHY BI 2-VIEW BREAST INC Lydia López APRN.[employer]ARY [address] [place] [address] [facility] [address] [place] [address] Referral ID Status Reason Start Date Expiration Date Visits Requested Visits Authorized [id number] New Request Auto-Generat ed Referral 03/05/2024 04/04/2025 1 1 [facility] for referral (narrative)* Outpatient Procedure (Routine) - Authorized Specialty Diagnoses / Procedures [facility] Diagnoses Moderate persistent asthma without complication Procedures NITRIC OXIDE, EXHALED NITRIC OXIDE GAS DETERMINATION Christine Bianchi MD [address] [place] [address] [facility] [address] [place] [address] Referral ID Status Reason Start Date Expiration Date Visits Requested Visits Authorized [id number] Authorized Auto-Generat ed Referral 03/30/2024 04/29/2025 1 1 [facility] for referral (narrative)* Diagnostic Procedure Only (Urgent) - Closed Specialty Diagnoses / Procedures [facility] To Contact [facility] Diagnoses Pain of right upper extremity Procedures XR HUMERUS 2V AP/LAT RIGHT RADEX HUMERUS MINIMUM 2 VIEWS Wanda Phillips APRN.TITLE CURATIVE SPECIALIST [address] [place] [address] [place] [address] Referral ID Status Reason Start Date Expiration Date V isits Requested Visits Authorized [id number] Closed Auto-Generate d Referral 12/17/2021 01/16/2023 1 1 [facility] for referral (narrative)No [facility] Reason for visit Narrative* Outpatient Procedure (Routine) - Closed Specialty Diagnoses / Procedures Referred By Contac t Referred To Contact [facility] Diagnoses Screening for colon cancer Procedures COLONOSCOPY SCREENING COLONOSCOPY FLX DX W/COLLJ SPEC WHEN PFRMD Holland Carmichael MD [address] [place] [address] [facility] [address] [place] [id number] Referral ID Status Reason Start Date Expiration Date V isits Requested Visits Authorized [id number] Closed Auto-Generate d Referral 09/22/2021 09/22/2022 1 1 [facility] for visit Narrative* Diagnostic Procedure Only (Urgent) - Closed Specialty Diagnoses / Procedures Referred By Contac t Referred To Contact [facility] Diagnoses Pain and swelling of right lower leg Procedures US DVT LOWER RIGHT DUP-SCAN XTR VEINS UNILATERAL/LIMITED STUDY Tamika Morris MD [address] [place] [address] Us Imaging [facility] Referral ID Status Reason Start Date Expiration Date V isits Requested Visits Authorized [id number] Closed Auto-Generate d Referral 10/31/2023 11/29/2024 1 1 [facility] for visit Narrative* Diagnostic Procedure Only (Urgent) - Closed Specialty Diagnoses / Procedures Referred By Contac t Referred To Contact XR IMAGING Diagnoses Pain of right upper extremity Procedures XR HUMERUS 2V AP/LAT RIGHT RADEX HUMERUS MINIMUM 2 VIEWS Wanda Phillips APRN.CNP [address] [place] [address] [place] [address] Referral ID Status Reason Start Date Expiration Date V isits Requested Visits Authorized [id number] Closed Auto-Generate d Referral 12/17/2021 01/16/2023 1 1 [facility] Advance Directives No Advanced Directives Records FoundDocuments on File Type Date Recorded 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 Advance Directive(s) 09/30/2021 12:15 PM Documents on File Type Date Recorded 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 Advance Directive(s) 10/29/2021 7:15 AM Advance Directive(s) 09/30/2021 12:15 PM Documents on File Type Date Recorded 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 Advance Directive(s) 10/29/2021 7:15 AM Advance Directive(s) 09/30/2021 12:15 PM Advance Directive Response Recorded Date/ Time Name of Medical Power of University Relations Director pam kessinge r February 11, 2022 2:28pm Advance Directives Yes March 12, 2016 2:58pm Living Will Yes February 11, 2022 2:28pm Power of University Relations Director Yes February 11 2:28pm Advance Directive Response Recorded Date/ Time Name of Medical Power of University Relations Director Elijah Kessinge r July 10, 2022 3:19pm Advance Directives Yes March 12, 2016 1:58pm Living Will Yes July 10, 2 022 3:19pm Power of University Relations Director Yes July 10, 2022 3:19pm Advance Directive Response Recorded Date/ Time Name of Medical Power of University Relations Director Elijah Kessinge r July 10, 2022 6:37pm Name of Medical Power of University Relations Director Elijah Kessinge r July 18, 2022 2:48am Advance Directives Yes March 12, 2016 1:58pm Living Will Yes July 18 2:48am Power of University Relations Director Yes July 18 2 023 2:48am Advance Directive Response Recorded Date/ Time Name of Medical Power of University Relations Director Elijah Kessinge r July 10, 2022 6:37pm Name of Medical Power of University Relations Director Elijah Kessinge r July 18, 2022 2:48am Name of Medical Power of University Relations Director Elijah Kessinge r July 31, 2022 7:14pm Advance Directives Yes March 12, 2016 1:58pm Living Will Yes July 31 7:14pm Power of University Relations Director Yes July 31, 2022 7:14pm Advance Directive Response Recorded Date/ Time Name of Medical Power of University Relations Director Elijah Kessinge r July 10, 2022 6:37pm Name of Medical Power of University Relations Director Elijah Kessinge r July 18, 2022 2:48am Name of Medical Power of University Relations Director Elijah Kessinge r- July 31, 2022 11:29pm Advance Directives Yes March 12, 2016 1:58pm Living Will Yes July 31 11:29pm Power of University Relations Director Yes July 31, 2022 11:29pm Advance Directive Response Recorded Date/ Time Name of Medical Power of University Relations Director Elijah Kessinge r July 10, 2022 7:37pm Name of Medical Power of University Relations Director Elijah Kessinge r July 18, 2022 3:48am Name of Medical Power of University Relations Director Elijah Kessinge r- August 01, 2022 12:29am Name of Medical Power of University Relations Director ELIJAH KESSINGE R October 01, 2022 2:19pm Advance Directives Yes March 12, 2016 2:58pm Living Will Yes October 01, 2022 2:19pm Power of University Relations Director Yes October 01 2:19pm Advance Directive Response Recorded Date/ Time Name of Medical Power of University Relations Director Elijah Kessinge r July 10, 2022 7:37pm Name of Medical Power of University Relations Director Elijah Kessinge r July 18, 2022 3:48am Name of Medical Power of University Relations Director Elijah Kessinge r- August 01, 2022 12:29am Name of Medical Power of University Relations Director ELIJAH KESSINGE R October 01, 2022 2:19pm Name of Medical Power of University Relations Director ROCTAVON KESSINGE R October 11, 2022 4:15pm Advance Directives Yes March 12, 2016 2:58pm Living Will Yes October 11, 2022 4:15pm Power of University Relations Director Yes October 11 4:15pm Advance Directive Response Recorded Date/ Time Name of Medical Power of University Relations Director Elijah Kessinge r July 10, 2022 7:37pm Name of Medical Power of University Relations Director Elijah Slaughteringe r July 18, 2022 3:48am Name of Medical Power of University Relations Director Elijah Slaughteringe r- August 01, 2022 12:29am Name of Medical Power of University Relations Director ELIJAH OSMAN R October 01, 2022 2:19pm Name of Medical Power of University Relations Director JENNA SLAUGHTERINGE R October 11, 2022 4:15pm Name of Medical Power of University Relations Director November 04, 2022 6:03pm Advance Directives Yes March 12, 2016 2:58pm Living Will Yes November 04, 2022 6:03pm Power of University Relations Director Yes November 04 6:03pm Advance Directive Response Recorded Date/ Time Name of Medical Power of University Relations Director ELIJAH SLAUGHTERINGE R October 01, 2022 2:19pm Name of Medical Power of University Relations Director JENNA OSMAN R October 11, 2022 4:15pm Name of Medical Power of University Relations Director November 04, 2022 6:03pm Advance Directives Yes March 12, 2016 2:58pm Living Will Yes November 04, 2022 6:03pm Power of University Relations Director Yes November 04 6:03pm Advance Directive Response Recorded Date/ Time Name of Medical Power of University Relations Director November 04, 2022 6:03pm Advance Directives Yes March 12, 2016 2:58pm Living Will No February 13, 2023 6:15pm Power of University Relations Director No February 13 6:15pm Advance Directive Response Recorded Date/ Time Advance Directives Yes March 12, 2016 2:58pm Living Will No February 13, 2023 6:15pm Power of University Relations Director No February 13 6:15pm Advance Directive Response Recorded Date/ Time Name of Medical Power of University Relations Director September 16, 2023 6:19pm Advance Directives Yes March 12, 2016 1:58pm Living Will Yes September 16, 2023 6:19pm Power of University Relations Director Yes September 15 6:19pm Advance Directive Response Recorded Date/ Time Name of Medical Power of University Relations Director . September 21, 2023 1:29am Advance Directives Yes March 12, 2016 1:58pm Living Will Yes September 21, 2023 1:29am Power of University Relations Director Yes September 20 1:29am Name of Medical Power of University Relations Director September 16, 2023 6:19pm Advance Directive Response Recorded Date/ Time Name of Medical Power of University Relations Director . September 21, 2023 2:29am Name of Medical Power of University Relations Director PAM GREGORY October 01, 2023 3:17pm Advance Directives Yes March 12, 2016 2:58pm Living Will Yes October 01, 2023 3:17pm Power of University Relations Director Yes September 30 3:17pm Name of Medical Power of University Relations Director September 16, 2023 7:19pm Advance Directive Response Recorded Date/ Time Name of Medical Power of University Relations Director . September 21, 2023 2:29am Name of Medical Power of University Relations Director PAM GREGORY October 01, 2023 3:17pm Name of Medical Power of University Relations Director September 16, 2023 7:19pm Name of Medical Power of University Relations Director recalled October 28, 2023 7:21pm Advance Directives Yes March 12, 2016 2:58pm Living Will Yes October 28, 2023 7:21pm Power of University Relations Director Yes October 27 7:21pm Advance Directive Response Recorded Date/ Time Name of Medical Power of University Relations Director . September 21, 2023 2:29am Name of Medical Power of University Relations Director PAM GREGORY October 01, 2023 3:17pm Name of Medical Power of University Relations Director or son - pt unsure November 06, 2023 7:49pm Advance Directives Yes March 12, 2016 2:58pm Living Will Yes November 06, 2023 7:49pm Power of University Relations Director Yes November 05 7:49pm Name of Medical Power of University Relations Director September 16, 2023 7:19pm Name of Medical Power of University Relations Director recalled October 28, 2023 7:21pm Advance Directive Response Recorded Date/ Time Name of Medical Power of University Relations Director . September 21, 2023 2:29am Name of Medical Power of University Relations Director PAM GREGORY October 01, 2023 3:17pm Name of Medical Power of University Relations Director or son - pt unsure November 06, 2023 7:49pm Name of Medical Power of University Relations Director September 16, 2023 7:19pm Name of Medical Power of University Relations Director recalled October 28, 2023 7:21pm Name of Medical Power of University Relations Director November 07, 2023 4:30pm Advance Directives Yes March 12, 2016 2:58pm Living Will Yes November 07, 2023 4:30pm Power of University Relations Director Yes November 06 4:30pm Advance Directive Response Recorded Date/ Time Name of Medical Power of University Relations Director . September 21, 2023 2:29am Name of Medical Power of University Relations Director PAM GREGORY October 01, 2023 3:17pm Name of Medical Power of University Relations Director or son - pt unsure November 06, 2023 7:49pm Name of Medical Power of University Relations Director September 16, 2023 7:19pm Name of Medical Power of University Relations Director recalled October 28, 2023 7:21pm Name of Medical Power of University Relations Director November 07, 2023 4:30pm Name of Medical Power of University Relations Director elijah [place] November 28, 2023 8:08pm Advance Directives Yes March 12, 2016 2:58pm Living Will Yes November 28, 2023 8 :08pm Power of University Relations Director Yes November 28, 2023 8:08pm Documents on File Type Date Recorded 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 Advance Directive(s) 10/04/2024 2:00 PM Advance Directive Response Recorded Date/ Time Living Will Yes May 25 4:47am Power of University Relations Director Yes May 25, 2024 4:47am Name of Medical Power of University Relations Director May 25, 2024 4:47am Living Will Yes May 27 6:39pm Power of University Relations Director Yes May 27, 2024 6:39pm Name of Medical Power of University Relations Director May 27, 2024 6:39pm Living Will No June 08, 024 5:00pm Power of University Relations Director No June 08, 2024 5:00pm Living Will Yes July 02 024 10:07pm Power of University Relations Director Yes July 02, 2024 10:07pm Name of Medical Power of University Relations Director elijah osman r July 02, 2024 10:07pm Living Will Yes July 28 8:34pm Power of University Relations Director Yes July 28, 2024 8:34pm Name of Medical Power of University Relations Director July 28, 2024 8:34pm Living Will Yes September 20, 2024 7:05pm Power of University Relations Director Yes September 20 7:05pm Name of Medical Power of University Relations Director hayden September 20, 2024 7:05pm Advance Directives Yes March 12, 2016 1:58pm Advance Directive Response Recorded Date/ Time Living Will No September 21, 2024 6:25am Power of University Relations Director No September 21 6:25am Living Will Yes May 25 4:47am Power of University Relations Director Yes May 25, 2024 4:47am Name of Medical Power of University Relations Director May 25, 2024 4:47am Living Will Yes May 27 6:39pm Power of University Relations Director Yes May 27, 2024 6:39pm Name of Medical Power of University Relations Director May 27, 2024 6:39pm Living Will No June 08 5:00pm Power of University Relations Director No June 08, 2024 5:00pm Living Will Yes July 02 10:07pm Power of University Relations Director Yes July 02, 2024 10:07pm Name of Medical Power of University Relations Director elijah osman r July 02, 2024 10:07pm Living Will Yes July 28 8:34pm Power of University Relations Director Yes July 28, 2024 8:34pm Name of Medical Power of University Relations Director July 28, 2024 8:34pm Living Will Yes September 20, 2024 7:05pm Power of University Relations Director Yes September 20 7:05pm Name of Medical Power of University Relations Director hayden September 20, 2024 7:05pm Advance Directives Yes March 12, 2016 1:58pm Advance Directive Response Recorded Date/ Time Living Will No September 21, 2024 7:25am Power of University Relations Director No September 21 7:25am Living Will Yes May 27 7:39pm Power of University Relations Director Yes May 27, 2024 7:39pm Name of Medical Power of University Relations Director May 27, 2024 7:39pm Living Will No June 08 6:00pm Power of University Relations Director No June 08, 2024 6:00pm Living Will Yes July 02 11:07pm Power of University Relations Director Yes July 02, 2024 11:07pm Name of Medical Power of University Relations Director elijah osman r July 02, 2024 11:07pm Living Will Yes July 28 9:34pm Power of University Relations Director Yes July 28, 2024 9:34pm Name of Medical Power of University Relations Director July 28, 2024 9:34pm Living Will Yes September 20, 2024 8:05pm Power of University Relations Director Yes September 20 8:05pm Name of Medical Power of University Relations Director hayden September 20, 2024 8:05pm Living Will No September 23, 2024 9:09pm Power of University Relations Director No September 23 9:09pm Advance Directives Yes March 12, 2016 2:58pm Documents on File Type Date Recorded 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 No September 21, 2024 7:25am Living Will Yes July 02 11:07pm Do you have a Healthcare Pow er of University Relations Director? Yes July 02, 2024 11:07pm Name of Medical Power of University Relations Director elijah osman r July 02, 2024 11:07pm Living Will Yes July 28 9:34pm Do you have a Healthcare Pow er of University Relations Director? Yes July 28, 2024 9:34pm Name of Medical Power of University Relations Director July 28, 2024 9:34pm Living Will Yes September 20, 2024 8:05pm Do you have a Healthcare Pow er of University Relations Director? Yes September 20, 2024 8:05pm Name of Medical Power of University Relations Director hayden September 20, 2024 8:05pm Living Will No September 23, 2024 9:09pm Do you have a Healthcare Pow er of University Relations Director? No September 23, 2024 9:09pm Living Will No October 19, 2024 9:41am Do you have a Healthcare Pow er of University Relations Director? No October 19, 2024 9:41am Advance Directives Yes March 12, 2016 2:58pm Advance Directive Response Recorded Date/ Time Living Will No September 21, 2024 7:25am Do you have a Healthcare Pow er of University Relations Director? No September 21, 2024 7:25am Living Will Yes October 24, 2024 8:44pm Do you have a Healthcare Pow er of University Relations Director? Yes October 24, 2024 8:44pm Name of Medical Power of University Relations Director Elijah October 24, 2024 8:44pm Living Will Yes July 02 11:07pm Do you have a Healthcare Pow er of University Relations Director? Yes July 02, 2024 11:07pm Name of Medical Power of University Relations Director elijahbryanna slaughterjohn godinez July 02, 2024 11:07pm Living Will Yes July 28 9:34pm Do you have a Healthcare Pow er of University Relations Director? Yes July 28, 2024 9:34pm Name of Medical Power of University Relations Director July 28, 2024 9:34pm Living Will Yes September 20, 2024 8:05pm Do you have a Healthcare Pow er of University Relations Director? Yes September 20, 2024 8:05pm Name of Medical Power of University Relations Director hayden September 20, 2024 8:05pm Living Will No September 23, 2024 9:09pm Do you have a Healthcare Pow er of University Relations Director? No September 23, 2024 9:09pm Living Will No October 19, 2024 9:41am Do you have a Healthcare Pow er of University Relations Director? No October 19, 2024 9:41am Advance Directives Yes March 12, 2016 2:58pm Advance Directive Response Recorded Date/ Time Living Will No September 21, 2024 7:25am Do you have a Healthcare Power of University Relations Director? No September 21, 2024 7:25am Living Will Yes October 24, 2024 8:44pm Do you have a Healthcare Power of University Relations Director? Yes October 24, 2024 8:44pm Name of Medical Power of University Relations Director Elijah October 24, 2024 8:44pm Living Will Yes November 03, 2024 6:56am Do you have a Healthcare Power of University Relations Director? Yes November 03, 2024 6:56am Name of Medical Power of University Relations Director Pt unaware November 03, 2024 6:56am Living Will Yes July 28 9:34pm Do you have a Healthcare Power of University Relations Director? Yes July 28, 2024 9:34pm Name of Medical Power of University Relations Director July 28, 2024 9:34pm Living Will Yes September 20, 2024 8:05pm Do you have a Healthcare Power of University Relations Director? Yes September 20, 2024 8:05pm Name of Medical Power of University Relations Director hayden September 20, 2024 8:05pm Living Will No September 23, 2024 9:09pm Do you have a Healthcare Power of University Relations Director? No September 23, 2024 9:09pm Living Will No October 19, 2024 9:41am Do you have a Healthcare Power of University Relations Director? No October 19, 2024 9:41am Advance Directives Yes March 12, 2016 2:58pm Advance Directive Response Recorded Date/ Time Living Will No September 21, 2024 7:25am Do you have a Healthcare Power of University Relations Director? No September 21, 2024 7:25am Living Will Yes October 24, 2024 8:44pm Do you have a Healthcare Power of University Relations Director? Yes October 24, 2024 8:44pm Name of Medical Power of University Relations Director Elijah October 24, 2024 8:44pm Living Will Yes November 03, 2024 6:56am Do you have a Healthcare Power of University Relations Director? Yes November 03, 2024 6:56am Name of Medical Power of University Relations Director Pt unaware November 03, 2024 6:56am Do you have a Healthcare Power of University Relations Director? Yes November 29, 2024 9:20pm Name of Medical Power of University Relations Director November 29, 2024 9:20pm Living Will Yes September 20, 2024 8:05pm Do you have a Healthcare Power of University Relations Director? Yes September 20, 2024 8:05pm Name of Medical Power of University Relations Director hayden September 20, 2024 8:05pm Living Will No September 23, 2024 9:09pm Do you have a Healthcare Power of University Relations Director? No September 23, 2024 9:09pm Living Will No October 19, 2024 9:41am Do you have a Healthcare Power of University Relations Director? No October 19, 2024 9:41am Advance Directives Yes March 12, 2016 2:58pm Advance Directive Response Recorded Date/ Time Living Will No September 21, 2024 7:25am Do you have a Healthcare Power of University Relations Director? No September 21, 2024 7:25am Living Will Yes October 24, 2024 8:44pm Do you have a Healthcare Power of University Relations Director? Yes October 24, 2024 8:44pm Name of Medical Power of University Relations Director Elijah October 24, 2024 8:44pm Living Will Yes November 03, 2024 6:56am Do you have a Healthcare Power of University Relations Director? Yes November 03, 2024 6:56am Name of Medical Power of University Relations Director Pt unaware November 03, 2024 6:56am Do you have a Healthcare Power of University Relations Director? Yes November 29, 2024 9:20pm Name of Medical Power of University Relations Director November 29, 2024 9:20pm Do you have a Healthcare Power of University Relations Director? No December 19, 2024 4:57pm Living Will Yes September 20, 2024 8:05pm Do you have a Healthcare Power of University Relations Director? Yes September 20, 2024 8:05pm Name of Medical Power of University Relations Director hayden September 20, 2024 8:05pm Living Will No September 23, 2024 9:09pm Do you have a Healthcare Power of University Relations Director? No September 23, 2024 9:09pm Living Will No October 19, 2024 9:41am Do you have a Healthcare Power of University Relations Director? No October 19, 2024 9:41am Advance Directives Yes March 12, 2016 2:58pm Advance Directive Response Recorded Date/ Time Living Will No September 21, 2024 7:25am Do you have a Healthcare Power of University Relations Director? No September 21, 2024 7:25am Living Will Yes October 24, 2024 8:44pm Do you have a Healthcare Power of University Relations Director? Yes October 24, 2024 8:44pm Name of Medical Power of University Relations Director Elijah October 24, 2024 8:44pm Living Will Yes November 03, 2024 6:56am Do you have a Healthcare Power of University Relations Director? Yes November 03, 2024 6:56am Name of Medical Power of University Relations Director Pt unaware November 03, 2024 6:56am Do you have a Healthcare Power of University Relations Director? Yes November 29, 2024 9:20pm Name of Medical Power of University Relations Director November 29, 2024 9:20pm Do you have a Healthcare Power of University Relations Director? No December 19, 2024 4:57pm Do you have a Healthcare Power of University Relations Director? Yes January 04, 2025 8:00pm Living Will Yes September 20, 2024 8:05pm Do you have a Healthcare Power of University Relations Director? Yes September 20, 2024 8:05pm Name of Medical Power of University Relations Director hayden September 20, 2024 8:05pm Living Will No September 23, 2024 9:09pm Do you have a Healthcare Power of University Relations Director? No September 23, 2024 9:09pm Living Will No October 19, 2024 9:41am Do you have a Healthcare Power of University Relations Director? No October 19, 2024 9:41am Advance Directives Yes March 12, 2016 2:58pm Advance Directive Response Recorded Date/ Time Living Will Yes October 24, 2024 8:44pm Do you have a Healthcare Power of University Relations Director? Yes October 24, 2024 8:44pm Name of Medical Power of University Relations Director Elijah October 24, 2024 8:44pm Living Will Yes November 03, 2024 6:56am Do you have a Healthcare Power of University Relations Director? Yes November 03, 2024 6:56am Name of Medical Power of University Relations Director Pt unaware November 03, 2024 6:56am Do you have a Healthcare Power of University Relations Director? Yes November 29, 2024 9:20pm Name of Medical Power of University Relations Director November 29, 2024 9:20pm Do you have a Healthcare Power of University Relations Director? No December 19, 2024 4:57pm Do you have a Healthcare Power of University Relations Director? Yes January 04, 2025 8:00pm Living Will No October 19, 2024 9:41am Do you have a Healthcare Power of University Relations Director? No October 19, 2024 9:41am Do you have a Healthcare Power of University Relations Director? Yes January 25, 2025 8:49pm Advance Directives Yes March 12, 2016 2:58pm Advance Directive Response Recorded Date/ Time Do you have a Healthcare Power of University Relations Director? No December 19, 2024 4:57pm Do you have a Healthcare Power of University Relations Director? Yes January 04, 2025 8:00pm Do you have a Healthcare Power of University Relations Director? Yes January 25, 2025 8:49pm Do you have a Healthcare Power of University Relations Director? Yes April 04, 2025 8:22pm Advance Directives Yes March 12, 2016 2:58pm [...] Referral Specialty Diagnoses / Procedures Referred By Belgica jalloh Referred To Contact General Surgery Diagnoses Colon cancer screening Procedures CONSULT TO GENERAL SURGERY OFFICE/OUTPATIENT [facility] 60-74 MINUTES Octavio Reza MD [address] [place] [address] Holland Carmichael MD [address] [facility] [place] [phone] Referral ID Status Reason Start Date Expiration Date Visits Requested Visits Authorized [id number] Pending Review PCP Requested Referral 09/11/2021 09/11/2022 1 1 Specialty Diagnoses / Procedures Referred By Contac t Referred To Contact Orthopedics Diagnoses Pain of right upper extremity Procedures CONSULT PANEL TO ORTHOPAEDICS OFFICE/OUTPATIENT [facility] 60-74 MINUTES Wanda Phillips APRN.TITLE CURATIVE SPECIALIST [address] [place] [phone] Referral ID Status Reason Start Date Expiration Date Visits Requested Visits Authorized [id number] Pending Review PCP Requested Referral 12/17/2021 12/17/2022 1 1 Specialty Diagnoses / Procedures Referred By Contac t Referred To Contact XR IMAGING Diagnoses Pain of right upper extremity Procedures XR HUMERUS 2V AP/LAT RIGHT RADEX HUMERUS MINIMUM 2 VIEWS Wanda Phillips APRN.TITLE CURATIVE SPECIALIST [address] [place] [phone] Xr Imaging Referral ID Status Reason Start Date Expiration Date V isits Requested Visits Authorized [id number] Closed Auto-Generate d Referral 12/17/2021 01/16/2023 1 1 Referral ID Status Reason Start Date Expiration Date V isits Requested Visits Authorized [id number] Closed Auto-Generate d Referral 12/17/2021 01/16/2023 1 1 Specialty Diagnoses / Procedures Referred By Contac t Referred To Contact Octavio Reza MD [address] [place] [phone] Referral ID Status Reason Start Date Expiration Date Visits Re quested Visits Authorized [id number] Closed 1 1 Referral ID Status Reason Start Date Expiration Date Visits Re quested Visits Authorized [id number] Closed 1 1 Specialty Diagnoses / Procedures Referred By Contac t Referred To Contact Rheumatology Diagnoses Polyarthralgia Pain in finger of both hands Elevated C-reactive protein (CRP) Elevated sedimentation rate Procedures CONSULT TO RHEUM/IMMUN DISEASE OFFICE/OUTPATIENT [facility] MDM 60 MINUTES Lydia Grande APRN.REAL ESTATE LEGAL SECRETARY [address] [place] [address] Referral ID Status Reason Start Date Expiration Date Visits Requested Visits Authorized [id number] Authorized PCP Requested Referral 09/05/2023 09/04/2024 1 1 Specialty Diagnoses / Procedures Referred By Contac t Referred To Contact Endocrinology Diagnoses 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) Procedures CONSULT TO ENDOCRINOLOGY OFFICE/OUTPATIENT [facility] 60 MINUTES Lydia Grande, WASTEWATER PLANT CIVIL ENGINEER.REAL ESTATE LEGAL SECRETARY [address] [place] [address] Referral ID Status Reason Start Date Expiration Date Visits Requested Visits Authorized [id number] Authorized PCP Requested Referral 11/08/2023 11/07/2024 1 1 Specialty Diagnoses / Procedures Referred By Contac t Referred To Contact Diagnoses Diabetes mellitus type 1, controlled, without complications (HCC) Procedures CONSULT TO DIABETES EDUCATION DSME/MNT MEDICAL NUTRITION ASSMT&IVNTJ INDIV EACH 15 WY MEDICAL NUTRITION ASSMT&IVNTJ INDIV EACH 15 W[place] MEDICAL NUTRITION ASSMT&IVNTJ INDIV EACH 15 WY MEDICAL NUTRITION ASSMT&IVNTJ INDIV EACH 15 W[place] Estephanie Mcgeenne C, WASTEWATER PLANT CIVIL ENGINEER.TITLE CURATIVE SPECIALIST [address] [place] [address] Referral ID Status Reason Start Date Expiration Date Visits Requested Visits Authorized [id number] Authorized PCP Requested Referral 12/07/2023 12/06/2024 1 1 Specialty Diagnoses / Procedures Referred By Contac t Referred To Contact Diagnoses Diabetes mellitus type 1, controlled, without complications (HCC) Procedures ENDOCRINOLOGY DIETITIAN VISIT (MNT) MEDICAL NUTRITION ASSMT&IVNTJ INDIV EACH 15 W[place] MEDICAL NUTRITION ASSMT&IVNTJ INDIV EACH 15 W[place] MEDICAL NUTRITION ASSMT&IVNTJ INDIV EACH 15 WY MEDICAL NUTRITION ASSMT&IVNTJ INDIV EACH 15 W[place] CitiaraeEstephanieRenetta C, WASTEWATER PLANT CIVIL ENGINEER.TITLE CURATIVE SPECIALIST [address] [place] [id number] Referral ID Status Reason Start Date Expiration Date Visits Requested Visits Authorized [id number] Authorized PCP Requested Referral 02/15/2024 02/14/2025 1 1 Specialty Diagnoses / Procedures Referred By Contac t Referred To Contact Diagnoses THAIS (obstructive sleep apnea) Procedures CONSULT TO SLEEP MEDICINE - ADULT OFFICE/OUTPATIENT [facility] 60 MINUTES Rehana Osorio, WASTEWATER PLANT CIVIL ENGINEER.TITLE CURATIVE SPECIALIST [address] [place] [address] Referral ID Status Reason Start Date Expiration Date Visits Requested Visits Authorized [id number] Authorized PCP Requested Referral 02/13/2024 02/12/2025 1 1 Specialty Diagnoses / Procedures Referred By Contac t Referred To Contact Diagnoses 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) Davon Wolfe, W[employer]EW[employer]ANT CIVIL ENGINEER.TITLE CURATIVE SPECIALIST [address] [place] [address] Referral ID Status Reason Start Date Expiration Date Visits Re quested Visits Authorized [id number] Closed 1 1 Specialty Diagnoses / Procedures Referred By Contac t Referred To Contact Diagnoses 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) Renetta Mcgee, WASTEWATER PLANT CIVIL ENGINEER.TITLE CURATIVE SPECIALIST [address] [place] [address] Referral ID Status Reason Start Date Expiration Date Visits Re quested Visits Authorized [id number] Closed 1 1 Specialty Diagnoses / Procedures Referred By Contac t Referred To Contact Diagnoses Severe persistent asthma without complication Octavio Reza MD [address] [place] [address] Referral ID Status Reason Start Date Expiration Date Visits Re quested Visits Authorized [id number] Closed 1 1 Chief Complaint and Reason [...] BILATERAL POST-INFLUENZA PNEUMONIA BILATERAL POST-INFLUENZA PNEUMONIA DR BELÉN BILATERAL POST-INFLUENZA PNEUMONIA BILATERAL POST-INFLUENZA PNEUMONIA FAILURE TO THRIVE,COVID FAILURE TO THRIVE,COVID FAILURE TO THRIVE,COVID CHEST PAIN PALPITATIONS CHEST PAIN Reason for Visit Hypoxia Acute hypokalemia Acute respiratory failure with hypoxia Asthma exacerbation in COPD Bilateral pneumonia Acute hypokalemia Bilateral pneumonia Hypoxia Chief Complaint CHEST PAIN PALPITATIONS CHEST PAIN S/P [facility] ED 11-04-22 CHEST PAIN Reason for Visit CRAWLEY (dyspnea on exer tion) Chief Complaint CHEST PAIN S/P [facility] ED 11-04-22 CHEST PAIN REACTION Reason for Visit CRAWLEY (dyspnea on exer tion) Chief Complaint CHEST PAIN REACTION SCREENING Chief Complaint palpitations palpitations 48 HOUR HALTER MONITER Chief Complaint palpitations palpitations 48 HOUR HALTER MONITER palpitations Chief Complaint palpitations 48 HOUR HALTER MONITER PALPS, DYSRHYTHMIA palpitations S/P [facility] 03/06 COUGH Reason for Visit Essential hypertensi on Hyperlipidemia Paroxysmal SVT (supraventricular tachycardia) Chief Complaint palpitations 48 HOUR HALTER MONITER PALPS, DYSRHYTHMIA palpitations S/P [facility] 03/06 COUGH HYPERGLYCEMIA Reason for Visit Essential hypertensi on Hyperlipidemia Paroxysmal SVT (supraventricular tachycardia) Chief Complaint palpitations 48 HOUR HALTER MONITER PALPS, DYSRHYTHMIA palpitations S/P [facility] 03/06 COUGH HYPERGLYCEMIA PALPITATIONS Reason for Visit Essential hypertensi on Hyperlipidemia Paroxysmal SVT (supraventricular tachycardia) Chief Complaint palpitations 48 HOUR HALTER MONITER PALPS, DYSRHYTHMIA palpitations S/P [facility] 03/06 COUGH HYPERGLYCEMIA PALPITATIONS blood sugar issues Reason for Visit Essential hypertensi on Hyperlipidemia Paroxysmal SVT (supraventricular tachycardia) Chief Complaint palpitations 48 HOUR HALTER MONITER PALPS, DYSRHYTHMIA palpitations S/P [facility] 03/06 COUGH HYPERGLYCEMIA PALPITATIONS blood sugar [...] 2025 9:37am Chief Complaint Admit Date leg October 19, 2024 9:27 am LOWER [...] 9:37am palpitations January 25, 2025 8:38 pm Chief Complaint Admit Date hyperglycemia December 19, 2024 3:47p m cp January 04, 2025 7:16 pm S/P 6/20 CP/SOB/Dizziness January 14 9:37am palpitations January 25, 2025 8:38 pm SCREENING April 02, 2025 8:41am PALPITATIONS April 04, 2025 7:34pm Reason for Visit Admit Date Abnormal stress test January 14, 2025 9:3 [...] s Specialty Diagnoses / Procedures Referred By Contac t Referred To Contact Endocrinology Diagnoses Diabetes mellitus type 1, controlled, without complications (HCC) Procedures MEDICAL NUTRITION ASSMT&IVNTJ INDIV EACH 15 WY MEDICAL NUTRITION ASSMT&IVNTJ INDIV EACH 15 W[place] MEDICAL NUTRITION ASSMT&IVNTJ INDIV EACH 15 W[place] MEDICAL NUTRITION ASSMT&IVNTJ INDIV EACH 15 [place] Renetta Mcgee, W[employer]EWATER PLANT CIVIL ENGINEER.TITLE CURATIVE SPECIALIST [address] [place] [address] Phone: tel: fax: Referral ID Status Reason Start Date Expiration Date V isits Requested Visits Authorized [id number] Closed PCP Requested Referral 02/06/2025 02/06/2026 1 [...] OT Reason Comments Hospital F/U Follow up [facility] and Av enue discharge Reason Comments Results Reason Comments Established Patient Reason Comments [facility] - medication question Reason Comments Vulvar problem Reason Comments Same Day Appointment lump in anus area x 1 week txd with antibiotics Reason Comments Lump on anus Reason Comments Follow Up 4 month Reason Comments patient asking for 3 D mamm order fax to [facility] Reason Comments Refill Request Reason Comments New Patient Palpitations Specialty Diagnoses / Procedures Referred By Belgica t Referred To Contact Cardiology Diagnoses Palpitations Paroxysmal SVT (supraventricular tachycardia) Procedures CONSULT TO CARDIOLOGY OFFICE/OUTPATIENT NEW HIGH MDM 60-74 MINUTES Davon Wolfe APRN.TITLE CURATIVE SPECIALIST [address] [place] [address] Referral ID Status Reason Start Date Expiration Date Visits Requested Visits Authorized [id number] Pending Review PCP Requested Referral 11/12/2022 11/12/2023 1 1 Reason Onset Date Comments Refill Request 06/14/2023 Reason Comments Spirometry Specialty Diagnoses / Procedures Referred By Contac t Referred [facility] Contact [facility] Diagnoses Severe persistent asthma without complication Procedures OXIMETRY WITH AMBULATION NONINVASIVE EAR/PULSE OXIMETRY MULTIPLE DETER Tierney Nunez PA-C [address] [facility] [place] [address] [address] Referral ID Status Reason Start Date Expiration Date V isits Requested Visits Authorized [id number] Closed Auto-Generate d Referral 06/23/2023 07/17/2023 1 1 Specialty Diagnoses / Procedures Referred By Contac t Referred To Contact [facility] Diagnoses Severe persistent asthma without complication Procedures NITRIC OXIDE, EXHALED NITRIC OXIDE GAS DETERMINATION Tierney Nunez PA-C [address] [place] [address] [address] Referral ID Status Reason Start Date Expiration Date V isits Requested Visits Authorized [id number] Closed Auto-Generate d Referral 06/23/2023 07/22/2024 1 [...] NEW HIGH MDM 60 MINUTES Lydia Grande, WASTEWATER PLANT CIVIL ENGINEER.REAL ESTATE LEGAL SECRETARY [address] [place] [address] Referral ID Status Reason Start Date Expiration Date V isits Requested Visits Authorized [id number] Closed PCP Requested Referral 11/08/2023 11/07/2024 1 1 Reason Comments FYI-No Action Needed Reason Onset Date Comments Patient Question 12/09/2023 Reason Comments Patient Update and question Reason Comments sore lump on side of right neck X 1 week Reason Comments Blood sugar readings Copy of recent BS r eadings attached to this encounter. Reason Comments Diabetes Specialty Diagnoses / [facility] To Contact Diagnoses Diabetes mellitus type 1, controlled, without complications (HCC) Procedures CONSULT TO DIABETES EDUCATION DSME/MNT MEDICAL NUTRITION ASSMT&IVNTJ INDIV EACH 15 WY MEDICAL NUTRITION ASSMT&IVNTJ INDIV EACH 15 W[place] MEDICAL NUTRITION ASSMT&IVNTJ INDIV EACH 15 WY MEDICAL NUTRITION ASSMT&IVNTJ INDIV EACH 15 W[place] Renetta Mcgee, WASTEWATER PLANT CIVIL ENGINEER.TITLE CURATIVE SPECIALIST [address] [place] [address] Referral ID Status Reason Start Date Expiration Date V isits Requested Visits Authorized [id number] Closed PCP Requested Referral 12/07/2023 12/06/2024 1 1 Reason Comments Orders Lab Orders Reason Comments Diabetes mellitus type 1, controlled, wi thout complications Reason Comments Orders Reason Comments Established Patient Increased dyspnea Reason Comments Symbicort needs authorized Reason Comments F/U 4 month Labs prior Reason Onset Date Comments Refill Request 03/23/2024 Specialty Diagnoses / Procedures Referred By [facility] t Referred To Contact [facility] Diagnoses Mild persistent asthma without complication Procedures NITRIC OXIDE, EXHALED NITRIC OXIDE GAS DETERMINATION Christine Bianchi MD [address] [place] [address] Respiratory [place] [address] [place] [address] Referral ID Status Reason Start Date Expiration Date V isits Requested Visits Authorized [id number] Closed Auto-Generate d Referral 09/22/2023 10/21/2024 1 1 Reason Comments Established Patient 6 month follow up as thma Asthma Reason Comments Cough Cough, sneezing and right side of neck hurts x 2 days Reason Comments Recheck [facility] ER 05/05/24 shor tness of breath with chest discomfort was note arrhythmia Dental Problem questions a tooth ab scess. Reason Comments checking if lab work due Reason Comments 4 month follow up [facility] ER 06/08/24 foll ow up for UTI.Treated with Bactrim but feels not tolerating the Bactrim as it is causing her to be really warm and elevated blood sugar Reason Onset Date Comments Refill Request 06/19/2024 Reason Onset Date Comments [facility] Navigation Outreach 06/21/2024 AWV INITIATIVE Reason Comments elevated blood glucose Reason Comments Rx Refills Reason Onset Date Comments Refill Request 07/27/2024 Reason Comments Constipation Reason Onset Date Comments [facility] Outreach 08/17/2024 [employer] High Risk - Attempt 1 Reason Comments Clinical Update Reason Comments Blood sugar test strips PA Reason Comments ER F/U [facility] 09/20 abdominal pa in, constipation; [facility] 09/21 hyperglycemia; [facility] diarrhea Reason Comments 4 month f/up Reason Comments Patient Question Requesting a call back from nurse Returning Patient's Call Reason Comments High Blood Sugar left leg pain Reason Comments Patient Update Ongoing high blood s ugars Reason Comments type 1 diabetes Reason Onset Date Comments [employer]- Other 11/07/2024 CDM chart review Reason Comments Patient Question Low heart rate Reason Onset Date Comments Refill Request 12/12/2024 Reason Comments Patient Update Returning Patient's Call Reason Comments Medicare Wellness Exam Reason Comments Hospital Follow Up Reason Comments Insulin Dependent Diabetes Mellitus Reason Comments Patient Question Medication Problem Reason Onset Date Comments [facility] Outreach 03/07/2025 [employer] Workbench Britton Reason Comments Blood Pressure Check Home blood pressure running high, flushing cheeks in the am, Care Teams (unrecognized sec tion and content) Iron Installer Relationship Specialty Start Date End Date Octavio Reza MD [address] [place], [place] [id number] PCP - General Internal Medicine 08/24/10 Iron Installer Relationship Specialty Start Date End Date Octavio Reza MD [address] [place], [place] [phone] PCP - General Internal Medicine 08/24/10 Iron Installer Relationship Specialty Start Date End Date Octavio Reza MD [address] [place] [address] PCP - General Internal Medicine 08/24/10 Iron Installer Relationship Specialty Start Date End Date Octavio Reza MD [facility] [place] [address] PCP - General Internal Medicine 08/24/10 Iron Installer Relationship Specialty Start Date End Date Octavio Reza MD [address] [place] [address], [place] [address] PCP - General Internal Medicine 08/24/10 Iron Installer Relationship Specialty Start Date End Date Octavio Reza MD [address] [place] [address], [place] [address] PCP - General Internal Medicine 08/24/10 Iron Installer Relationship Specialty Start Date End Date Octavio Reza MD [address] [place] [address], [place] [address] PCP - General Internal Medicine 08/24/10 Iron Installer Relationship Specialty Start Date End Date Octavio Reza MD [address] [place] [address], [place] [address] PCP - General Internal Medicine 08/24/10 Iron Installer Relationship Specialty Start Date End Date Octavio Reza MD [address] [place] [address], [place] [address] PCP - General Internal Medicine 08/24/10 Iron Installer Relationship Specialty Start Date End Date Octavio Reza MD [address] [place] [address], [place] [address] PCP - General Internal Medicine 08/24/10 Iron Installer Relationship Specialty Start Date End Date Octavio Reza MD [address] [place] [address], [place] [address] PCP - General Internal Medicine 08/24/10 Iron Installer Relationship Specialty Start Date End Date Octavio Reza MD [facility] [place] [address] PCP - General Internal Medicine 08/24/10 Iron Installer Relationship Specialty Start Date End Date Octavio Reza MD [address] [place] [address], [place] [address] PCP - General Internal Medicine 08/24/10 Iron Installer Relationship Specialty Start Date End Date Octavio Reza MD [address] [place] [address], [place] [address] PCP - General Internal Medicine 08/24/10 Iron Installer Relationship Specialty Start Date End Date Octavio Reza MD [address] [place] [address], [place] [address] PCP - General Internal Medicine 08/24/10 Iron Installer Relationship Specialty Start Date End Date Octavio Reza MD [address] [place] [address], [place] [address] PCP - General Internal Medicine 08/24/10 Iron Installer Relationship Specialty Start Date End Date Octavio Reza MD [address] [place] [address], [place] [address] PCP - General Internal Medicine 08/24/10 Iron Installer Relationship Specialty Start Date End Date Octavio Reza MD [address] [place] [address], [place] [address] PCP - General Internal Medicine 08/24/10 Iron Installer Relationship Specialty Start Date End Date Octavio Reza MD [address] [place] [address], [place] [address] PCP - General Internal Medicine 08/24/10 Iron Installer Relationship Specialty Start Date End Date Octavio Reza MD [address] [place] [address], [place] [address] PCP - General Internal Medicine 08/24/10 Team [...] Provider, Other Provid er Active Dr. Tawanda eHrring MD Other Provider Active Team Status: Inactive [...] Mei Garcia MD Attending Provider Active Dr. lForesita Howe MD Other Provider Active Team Status: Inactive Member Role Status Dates Dr. Octavio Reza MD Primary Care Provider Active Dr. Jesus Kessler MD Emergency Provider Active Dr. Daisy Gan MD Admit Provider, Other Provider Active Dr. Zay Escalera DO Attending Provider Active Dr. Tawanda Herring MD Other Provider Active Iron Installer Relationship Specialty Start Date End Date Octavio Reza MD [address] [place] [address] PCP - General Internal Medicine 08/24/10 Iron Installer Relationship Specialty Start Date End Date Octavio Reza MD [address] [place] [address] PCP - General Internal Medicine 08/24/10 Team Status: Active Member Role Status Dates Dr. Octavio Reza MD Primary Care Provider Active Dr. Jayden Alberto MD Attending Provider, Refe rring Provider Active Team Status: Inactive Member Role Status Dates Dr. Octavio Reza MD Primary Care Provider Active Dr. Zay Juan DO Emergency Provider Active Iron Installer Relationship Specialty Start Date End Date Octavio Reza MD [address] [place] [address] PCP - General Internal Medicine 08/24/10 Iron Installer Relationship Specialty Start Date End Date Octavio Reza MD [address] [place] [address] PCP - General Internal Medicine 08/24/10 Team [...] MD Primary Care Provider Active Dr. Lenin iMchaels MD Attending Provider Active Team Status: Inactive Member Role Status Dates Dr. Octavio Reza MD Primary Care Provider Active Dr. Tierney Francis MD Attending Provider, Emergency Provider Active Team Status: Inactive Member Role Status Dates Dr. Octavio Reza MD Primary Care Provider Active Areli Estevez PA, PA Attending Provider, Referr ing Provider Active Iron Installer Relationship Specialty Start Date End Date Octavio Reza MD [address] [place] [address] PCP - General Internal Medicine 08/24/10 Iron Installer Relationship Specialty Start Date End Date Octavio Reza MD [address] [place] [address] PCP - General Internal Medicine 08/24/10 Iron Installer Relationship Specialty Start Date End Date Octavio Reza MD [address] [place] [address] PCP - General Internal Medicine 08/24/10 Team Status: Inactive Member Role Status Dates Dr. Octavio Reza MD Primary Care Pr ovider, Attending Provider, Referring Provider Active Iron Installer Relationship Specialty Start Date End Date Octavio Reza MD [address] [place] [address] PCP - General Internal Medicine 08/24/10 Iron Installer Relationship Specialty Start Date End Date Octavio Reza MD [address] [facility] [place] [address] PCP - General Internal Medicine 08/24/10 Iron Installer Relationship Specialty Start Date End Date Octavio Reza MD [address] [facility] [place] [address] PCP - General Internal Medicine 08/24/10 Iron Installer Relationship Specialty Start Date End Date Octavio Reza MD [address] [facility] [place] [address] PCP - General Internal Medicine 08/24/10 Iron Installer Relationship Specialty Start Date End Date Octavio Reza MD [address] [facility] [place] [address] PCP - General Internal Medicine 08/24/10 Iron Installer Relationship Specialty Start Date End Date Octavio Reza MD [address] [place] [address] PCP - General Internal Medicine 08/24/10 Iron Installer Relationship Specialty Start Date End Date Octavio Reza MD [address] [facility] [place] [address] PCP - General Internal Medicine 08/24/10 Team [...] DO Attending Provider, Referring Provide r Active Iron Installer Relationship Specialty Start Date End Date Octavio Reza MD [address] [facility] [place] [address] PCP - General Internal Medicine 08/24/10 Iron Installer Relationship Specialty Start Date End Date Octavio Reza MD [address] [facility] [place] [address] PCP - General Internal Medicine 08/24/10 Iron Installer Relationship Specialty Start Date End Date Octavio Reza MD [address] [facility], [place] [address] PCP - General Internal Medicine 08/24/10 Iron Installer Relationship Specialty Start Date End Date Octavio Reza MD [address] [facility], [place] [address] PCP - General Internal Medicine 08/24/10 Team Status: Inactive Member Role Status Dates Dr. Octavio Reza MD Primary Care Provider, Referr ing Provider Active Jae Lee PRODUCT DESIGNER, PRODUCT DESIGNER-C Attending Provider Active Team Status: Active Member [...] Dr. Mark Leong MD Emergency Provider Active Iron Installer Relationship Specialty Start Date End Date Octavio Reza MD [address] [facility] [place] [address] PCP - General Internal Medicine 08/24/10 Team Status: Inactive Member Role Status Dates Dr. Octavio Reza MD Primary Care Provider Active Dr. Mark Leong MD Attending Provider, Emergency Provi kaye Active Iron Installer Relationship Specialty Start Date End Date Octavio Reza MD [address] [facility] [place] [address] PCP - General Internal Medicine 08/24/10 Iron Installer Relationship Specialty Start Date End Date Octavio Reza MD [address] [facility] [place] [address] PCP - General Internal Medicine 08/24/10 Team Status: Inactive Member Role Status Dates Dr. Octavio Reza MD Primary Care Provider Active Dr. Holland Sanches DO Emergency Provider Active Iron Installer Relationship Specialty Start Date End Date Octavio Reza MD [address] [facility] [place] [address] PCP - General Internal Medicine 08/24/10 Iron Installer Relationship Specialty Start Date End Date Octavio Reza MD [address] [facility] [place] [address] PCP - General Internal Medicine 08/24/10 Iron Installer Relationship Specialty Start Date End Date Octavio Reza MD [address] [facility] [place] [address] PCP - General Internal Medicine 08/24/10 Iron Installer Relationship Specialty Start Date End Date Octavio Reza MD [address] [facility] [place] [address] PCP - General Internal Medicine 08/24/10 Team Status: Inactive Member Role Status Dates Dr. Octavio Reza MD Primary Care Provider Active Dr. Holland Sanches DO Attending Provider, Leo mora Active Iron Installer Relationship Specialty Start Date End Date Octavio Reza MD [address] [facility] [place] [address] PCP - General Internal Medicine 08/24/10 Iron Installer Relationship Specialty Start Date End Date Octavio Reza MD [address] [facility] [place] [address] PCP - General Internal Medicine 08/24/10 [facility] [address] [facility] [place] [address] Pharmacist Pharmacy 01/12/24 Iron Installer Relationship Specialty Start Date End Date Octavio Reza MD [address] [facility] [place] [address] PCP - General Internal Medicine 08/24/10 [facility] [address] [facility] [place] [address] Pharmacist Pharmacy 01/12/24 Iron Installer Relationship Specialty Start Date End Date Octavio Reza MD [address] [facility] [place] [address] PCP - General Internal Medicine 08/24/10 [facility] [address] [facility] [place] [address] Pharmacist Pharmacy 01/12/24 Iron Installer Relationship Specialty Start Date End Date Octavio Reza MD [address] [place] [address] PCP - General Internal Medicine 08/24/10 [facility] [address] [facility] [place] [address] Pharmacist Pharmacy 01/12/24 Iron Installer Relationship Specialty Start Date End Date Octavio Reza MD [address] [place] [address] PCP - General Internal Medicine 08/24/10 [facility]is [facility]helle[facility] [address] [place] [address] Pharmacist Pharmacy 01/12/24 Iron Installer Relationship Specialty Start Date End Date Octavio Reza MD [address] [place] [address] PCP - General Internal Medicine 08/24/10 [facility] [address] [facility] [place] [address] Pharmacist Pharmacy 01/12/24 Iron Installer Relationship Specialty Start Date End Date Octavio Reza MD [address] [place] [address] PCP - General Internal Medicine 08/24/10 [facility] [address] [facility] [place] [address] Pharmacist Pharmacy 01/12/24 Iron Installer Relationship Specialty Start Date End Date Octavio Reza MD [address] [facility] [place] [address] PCP - General Internal Medicine 08/24/10 [facility] [address] [place] [address] Pharmacist Pharmacy 01/12/24 Iron Installer Relationship Specialty Start Date End Date Octavio Reza MD [address] [place] [address] PCP - General Internal Medicine 08/24/10 [facility] [address] [facility] [place] [address] Pharmacist Pharmacy 01/12/24 Iron Installer Relationship Specialty Start Date End Date Octavio Reza MD [address] [place] [address] PCP - General Internal Medicine 08/24/10 [facility] [address] [facility] [place] [address] Pharmacist Pharmacy 01/12/24 Iron Installer Relationship Specialty Start Date End Date Octavio Reza MD [address] [place] [address] PCP - General Internal Medicine 08/24/10 [facility] [address] [facility] [place] [address] Pharmacist Pharmacy 01/12/24 Iron Installer Relationship Specialty Start Date End Date Octavio Reza MD [address] [facility] [place] [address] PCP - General Internal Medicine 08/24/10 [facility] Charis, [facility] [address] [facility] [place] [address] Pharmacist Pharmacy 01/12/24 Iron Installer Relationship Specialty Start Date End Date Octavio Reza MD [address] [facility] [place] [address] PCP - General Internal Medicine 08/24/10 [facility] RPh [address] [facility] [place] [address] Pharmacist Pharmacy 01/12/24 Iron Installer Relationship Specialty Start Date End Date Octavio Reza MD [address] [facility] [place] [address] PCP - General Internal Medicine 08/24/10 [facility] Charis, RPh [address] [facility] [place] [address] Pharmacist Pharmacy 01/12/24 Federica Alonzo RN [address] [place], [place] [id number] [employer] 04/04/24 Iron Installer Relationship Specialty Start Date End Date Octavio Reza MD [address] [facility] [place] [address] PCP - General Internal Medicine 08/24/10 [facility] [address] [facility] [place] [address] Pharmacist Pharmacy 01/12/24 Federica Alonzo RN [address] [place], [place] [phone] [employer] 04/04/24 Iron Installer Relationship Specialty Start Date End Date Octavio Reza MD [address] [facility] [place] [address] PCP - General Internal Medicine 08/24/10 [facility] [address] [facility] [place] [address] Pharmacist Pharmacy 01/12/24 Federica Alonzo RN [address] [place] [address] [employer] 04/04/24 Iron Installer Relationship Specialty Start Date End Date Octavio Reza MD [address] [place] [address] PCP - General Internal Medicine 08/24/10 Iron Installer Relationship Specialty Start Date End Date Octavio Reza MD [address] [place] [address] PCP - General Internal Medicine 08/24/10 [facility] [address] [place] [address] Pharmacist Pharmacy 01/12/24 Federica Alonzo RN [address] [place] [address] [employer] 04/04/24 Iron Installer Relationship Specialty Start Date End Date Octavio Reza MD [address] [place] [address] PCP - General Internal Medicine 08/24/10 [facility] [address] [place] [address] Pharmacist Pharmacy 01/12/24 Federica Alonzo RN [address] [place] [address] [employer] 04/04/24 Iron Installer Relationship Specialty Start Date End Date Octavio Reza MD [address] [facility] [place] [address] PCP - General Internal Medicine 08/24/10 [facility] [address] [facility] [place] [address] Pharmacist Pharmacy 01/12/24 Federica Alonzo, RN [address] [facility], [place] [phone] [employer] 04/04/24 Iron Installer Relationship Specialty Start Date End Date Octavio Reza MD [address] [facility] [place] [address] PCP - General Internal Medicine 08/24/10 [facility] [address] [facility] [place] [address] Pharmacist Pharmacy 01/12/24 Federica Alonzo RN [address] [place] [address] [employer] 04/04/24 Iron Installer Relationship Specialty Start Date End Date Octavio Reza MD [address] [facility] [place] [address] PCP - General Internal Medicine 08/24/10 [facility] [address] [facility] [place] [address] Pharmacist Pharmacy 01/12/24 Federica Alonzo RN [address] [place], [place] [phone] [employer] 04/04/24 Renetta Mcgee APRN.TITLE CURATIVE SPECIALIST [address] [place] [place] [address] Endocrinology 05/25/24 Iron Installer Relationship Specialty Start Date End Date Octavio Reza MD [address] [place] [address] PCP - General Internal Medicine 08/24/10 [employer] Clinic[facility] [address] [place] [address] Pharmacist Pharmacy 01/12/24 Federica Alonzo RN [address] [place] [address] [employer] 04/04/24 Renetta Mcgee, WASTEWATER PLANT CIVIL ENGINEER.TITLE CURATIVE SPECIALIST [address] [place] [address] Endocrinology 05/25/24 Iron Installer Relationship Specialty Start Date End Date Octavio Reza MD [address] [place] [address] PCP - General Internal Medicine 08/24/10 [facility]le[facility] [address] [place] [address] Pharmacist Pharmacy 01/12/24 Renetta Mcgee, WASTEWATER PLANT CIVIL ENGINEER.TITLE CURATIVE SPECIALIST [address] [place] [address] Endocrinology 05/25/24 Iron Installer Relationship Specialty Start Date End Date Octavio Reza MD [address] [place] [address] PCP - General Internal Medicine 08/24/10 [facility] [address] [place] [address] Pharmacist Pharmacy 01/12/24 Renetta Mcgee, WASTEWATER PLANT CIVIL ENGINEER.TITLE CURATIVE SPECIALIST [address] [place] [address] Endocrinology 05/25/24 Iron Installer Relationship Specialty Start Date End Date Octavio Rzea MD [address] [place] [address] PCP - General Internal Medicine 08/24/10 [facility]le[facility] [address] [place] [address] Pharmacist Pharmacy 01/12/24 Renetta Mcgee, WASTEWATER PLANT CIVIL ENGINEER.TITLE CURATIVE SPECIALIST [address] [place] [address] Endocrinology 05/25/24 Iron Installer Relationship Specialty Start Date End Date Octavio Reza MD [address] [place] [address] PCP - General Internal Medicine 08/24/10 [facility]le[facility] [address] [place] [address] Pharmacist Pharmacy 01/12/24 Renetta Mcgee, WASTEWATER PLANT CIVIL ENGINEER.TITLE CURATIVE SPECIALIST [address] [place] [address] Endocrinology 05/25/24 Iron Installer Relationship Specialty Start Date End Date Octavio Reza MD [address] [place] [address] PCP - General Internal Medicine 08/24/10 [facility] [address] [place] [address] Pharmacist Pharmacy 01/12/24 Federica Alonzo RN [address] [place] [address] [employer] 04/04/24 Renetta Mcgee APRN.TITLE CURATIVE SPECIALIST [address] [place] [address] Endocrinology 05/25/24 Lydia Grande WASTEWATER PLANT CIVIL ENGINEER.REAL ESTATE LEGAL SECRETARY [address] [place] [address] Clinical Neuropsychologist Internal Medicine 06/25/24 Davon Wolfe APRN.TITLE CURATIVE SPECIALIST [address] [place] [address] [facility] Internal Medicine 06/25/24 Iron Installer Relationship Specialty Start Date End Date Octavio Reza MD [address] [place] [address] PCP - General Internal Medicine 08/24/10 Charis Lucas [facility] [address] [place] [address] Pharmacist Pharmacy 01/12/24 Renetta Mcgee WASTEWATER PLANT CIVIL ENGINEER.TITLE CURATIVE SPECIALIST [address] [place] [address] Endocrinology 05/25/24 Lydia Grande WASTEWATER PLANT CIVIL ENGINEER.REAL ESTATE LEGAL SECRETARY [address] [place] [address] Clinical Neuropsychologist Internal Medicine 06/25/24 Davon Wolfe WASTEWATER PLANT CIVIL ENGINEER.TITLE CURATIVE SPECIALIST [address] [place] [address] Clinical Neuropsychologist Internal Medicine 06/25/24 Iron Installer Relationship Specialty Start Date End Date Octavio Reza MD [address] [place] [address] PCP - General Internal Medicine 08/24/10 [facility] hospitalCharis [facility]helleSaint [facility] [address] [facility] [place] [address] Pharmacist Pharmacy 01/12/24 Renetta Mcgee, WASTEWATER PLANT CIVIL ENGINEER.TITLE CURATIVE SPECIALIST [address] [place] [address] Endocrinology 05/25/24 Lydia Grande, WASTEWATER PLANT CIVIL ENGINEER.REAL ESTATE LEGAL SECRETARY [address] [place] [address] Clinical Neuropsychologist Internal Medicine 06/25/24 Davon Wolfe, WASTEWATER PLANT CIVIL ENGINEER.TITLE CURATIVE SPECIALIST [address] [place] [address] Clinical Neuropsychologist Internal Medicine 06/25/24 Iron Installer Relationship Specialty Start Date End Date Octavio Reza MD [address] [place] [address] PCP - General Internal Medicine 08/24/10 [facility]le[facility] [address] [place] [address] Pharmacist Pharmacy 01/12/24 Renetta Mcgee, WASTEWATER PLANT CIVIL ENGINEER.TITLE CURATIVE SPECIALIST [address] [place] [address] Endocrinology 05/25/24 Lydia Grande, WASTEWATER PLANT CIVIL ENGINEER.REAL ESTATE LEGAL SECRETARY [address] [place] [address] Clinical Neuropsychologist Internal Medicine 06/25/24 Davon Wolfe WASTEWATER PLANT CIVIL ENGINEER.TITLE CURATIVE SPECIALIST [address] [facility] [place] [address] [facility] Internal Medicine 06/25/24 Iron Installer Relationship Specialty Start Date End Date Octavio Reza MD [address] [facility] [place] [address] PCP - General Internal Medicine 08/24/10 [facility] [address] [facility] [place] [address] Pharmacist Pharmacy 01/12/24 Renetta Mcgee WASTEWATER PLANT CIVIL ENGINEER.TITLE CURATIVE SPECIALIST [address] [place] [address] Endocrinology 05/25/24 Lydia Grande WASTEWATER PLANT CIVIL ENGINEER.REAL ESTATE LEGAL SECRETARY [address] [facility] [place] [address] [facility] Internal Medicine 06/25/24 Davon Wolfe WASTEWATER PLANT CIVIL ENGINEER.TITLE CURATIVE SPECIALIST [address] [facility] [place] [address] [facility] Internal Medicine 06/25/24 Iron Installer Relationship Specialty Start Date End Date Octavio Reza MD [address] [facility] [place] [address] PCP - General Internal Medicine 08/24/10 Charis Lucas, formerly [facility] [address] [facility] [place] [address] Pharmacist Pharmacy 01/12/24 Renteta Mcgee WASTEWATER PLANT CIVIL ENGINEER.TITLE CURATIVE SPECIALIST [address] [place] [address] Endocrinology 05/25/24 Lydia Grande, WASTEWATER PLANT CIVIL ENGINEER.REAL ESTATE LEGAL SECRETARY [address] [place] [address] Clinical Neuropsychologist Internal Medicine 06/25/24 Davon Wolfe WASTEWATER PLANT CIVIL ENGINEER.TITLE CURATIVE SPECIALIST [address] [facility] [place] [address] Clinical Neuropsychologist Internal Medicine 06/25/24 Iron Installer Relationship Specialty Start Date End Date Octavio Reza MD [address] [place] [address] PCP - General Internal Medicine 08/24/10 Charis Lucas [facility] [address] [facility] [place] [address] Pharmacist Pharmacy 01/12/24 Renetta Mcgee, WASTEWATER PLANT CIVIL ENGINEER.TITLE CURATIVE SPECIALIST [address] [place] [address] Endocrinology 05/25/24 Lydia Grande, WASTEWATER PLANT CIVIL ENGINEER.REAL ESTATE LEGAL SECRETARY [address] [facility] [place] [address] Clinical Neuropsychologist Internal Medicine 06/25/24 Davon Wolfe, WASTEWATER PLANT CIVIL ENGINEER.TITLE CURATIVE SPECIALIST [address] [facility] [place] [address] Clinical Neuropsychologist Internal Medicine 06/25/24 Iron Installer Relationship Specialty Start Date End Date Octavio Reza MD [address] [place] [address] PCP - General Internal Medicine 08/24/10 Charis Lucas [facility] [address] [facility] [place] [address] Pharmacist Pharmacy 01/12/24 Renetta Mcgee APRN.TITLE CURATIVE SPECIALIST [address] [place] [address] Endocrinology 05/25/24 Lydia Grande, WASTEWATER PLANT CIVIL ENGINEER.REAL ESTATE LEGAL SECRETARY [address] [facility] [place] [address] Clinical Neuropsychologist Internal Medicine 06/25/24 Davon Wolfe WASTEWATER PLANT CIVIL ENGINEER.TITLE CURATIVE SPECIALIST [address] [place] [address] Clinical Neuropsychologist Internal Medicine 06/25/24 Iron Installer Relationship Specialty Start Date End Date Octavio Reza MD [address] [place] [address] PCP - General Internal Medicine 08/24/10 [facility] [address] [facility] [place] [address] Pharmacist Pharmacy 01/12/24 Renetta Mcgee WASTEWATER PLANT CIVIL ENGINEER.TITLE CURATIVE SPECIALIST [address] [place] [place] [address] Endocrinology 05/25/24 Lydia Grande, WASTEWATER PLANT CIVIL ENGINEER.REAL ESTATE LEGAL SECRETARY [address] [facility] [place] [address] Clinical Neuropsychologist Internal Medicine 06/25/24 Davon Wolfe WASTEWATER PLANT CIVIL ENGINEER.TITLE CURATIVE SPECIALIST [address] [facility] [place] [address] Clinical Neuropsychologist Internal Medicine 06/25/24 Iron Installer Relationship Specialty Start Date End Date Octavio Reza MD [address] [place] [address] PCP - General Internal Medicine 08/24/10 [facility] [address] [place] [address] Pharmacist Pharmacy 01/12/24 Renetta Mcgee APRN.TITLE CURATIVE SPECIALIST [address] [facility] [place] [place] [address] Endocrinology 05/25/24 Lydia Grande APRN.REAL ESTATE LEGAL SECRETARY [address] [place] [address] Clinical Neuropsychologist Internal Medicine 06/25/24 Davon Wolfe APRN.TITLE CURATIVE SPECIALIST [address] [place] [address] Clinical Neuropsychologist Internal Medicine 06/25/24 Iron Installer Relationship Specialty Start Date End Date Octavio Reza MD [address] [place] [address] PCP - General Internal Medicine 08/24/10 [facility] [address] [place] [address] Pharmacist Pharmacy 01/12/24 Renetta Mcgee APRN.TITLE CURATIVE SPECIALIST [address] [place] [address] Endocrinology 05/25/24 Lydia Grande APRN.REAL ESTATE LEGAL SECRETARY [address] [place] [address] Clinical Neuropsychologist Internal Medicine 06/25/24 Davon Wolfe APRN.TITLE CURATIVE SPECIALIST [address] [place] [address] Clinical Neuropsychologist Internal Medicine 06/25/24 Iron Installer Relationship Specialty Start Date End Date Octavio Reza MD [address] [place] [address] PCP - General Internal Medicine 08/24/10 [facility] [address] [place] [address] Pharmacist Pharmacy 01/12/24 Renetta Mcgee WASTEWATER PLANT CIVIL ENGINEER.TITLE CURATIVE SPECIALIST [address] [place] [place] [address] Endocrinology 05/25/24 Lydia Grande WASTEWATER PLANT CIVIL ENGINEER.REAL ESTATE LEGAL SECRETARY [address] [place] [address] Clinical Neuropsychologist Internal Medicine 06/25/24 Davon Wolfe WASTEWATER PLANT CIVIL ENGINEER.TITLE CURATIVE SPECIALIST [address] [place] [address] Clinical Neuropsychologist Internal Medicine 06/25/24 Iron Installer Relationship Specialty Start Date End Date Octavio Reza MD [address] [place] [address] PCP - General Internal Medicine 08/24/10 Charis Lucas, formerly [facility] [address] [place] [address] Pharmacist Pharmacy 01/12/24 Renetta Mcgee WASTEWATER PLANT CIVIL ENGINEER.TITLE CURATIVE SPECIALIST [address] [place] [address] Endocrinology 05/25/24 Lydia Grande, WASTEWATER PLANT CIVIL ENGINEER.REAL ESTATE LEGAL SECRETARY [address] [place] [address] Clinical Neuropsychologist Internal Medicine 06/25/24 Davon Wolfe, WASTEWATER PLANT CIVIL ENGINEER.TITLE CURATIVE SPECIALIST [address] [place] [address] Clinical Neuropsychologist Internal Medicine 06/25/24 Iron Installer Relationship Specialty Start Date End Date Octavio Reza MD [address] [place] [address] PCP - General Internal Medicine 08/24/10 [facility] [address] [place] [address] Pharmacist Pharmacy 01/12/24 Renetta Mcgee, WASTEWATER PLANT CIVIL ENGINEER.TITLE CURATIVE SPECIALIST [address] [place] [address] Endocrinology 05/25/24 Lydia Grande, WASTEWATER PLANT CIVIL ENGINEER.REAL ESTATE LEGAL SECRETARY [address] [place] [address] Clinical Neuropsychologist Internal Medicine 06/25/24 Davon Wolfe WASTEWATER PLANT CIVIL ENGINEER.TITLE CURATIVE SPECIALIST [address] [place] [address] Clinical Neuropsychologist Internal Medicine 06/25/24 Iron Installer Relationship Specialty Start Date End Date Octavio Reza MD [address] [place] [address] PCP - General Internal Medicine 08/24/10 [facility] [address] [place] [address] Pharmacist Pharmacy 01/12/24 Renetta Mcgee WASTEWATER PLANT CIVIL ENGINEER.TITLE CURATIVE SPECIALIST [address] [place] [address] Endocrinology 05/25/24 Lydia Grande, WASTEWATER PLANT CIVIL ENGINEER.REAL ESTATE LEGAL SECRETARY [address] [place] [address] Clinical Neuropsychologist Internal Medicine 06/25/24 Davon Wolfe WASTEWATER PLANT CIVIL ENGINEER.TITLE CURATIVE SPECIALIST [address] [place] [address] Clinical Neuropsychologist Internal Medicine 06/25/24 Iron Installer Relationship Specialty Start Date End Date Octavio Reza MD [address] [place] [address] PCP - General Internal Medicine 08/24/10 Charis Lucas formerly [facility] [address] [place] [address] Pharmacist Pharmacy 01/12/24 Renetta Mcgee WASTEWATER PLANT CIVIL ENGINEER.TITLE CURATIVE SPECIALIST [address] [place] [address] Endocrinology 05/25/24 Lydia Grande, WASTEWATER PLANT CIVIL ENGINEER.REAL ESTATE LEGAL SECRETARY [address] [place] [address] Clinical Neuropsychologist Internal Medicine 06/25/24 Davon Wolfe WASTEWATER PLANT CIVIL ENGINEER.TITLE CURATIVE SPECIALIST [address] [place] [address] Clinical Neuropsychologist Internal Medicine 06/25/24 Iron Installer Relationship Specialty Start Date End Date Octavio Reza MD [address] [place] [address] PCP - General Internal Medicine 08/24/10 Charis Lucas RP [address] [facility] [place], [place] [address] Pharmacist Pharmacy 01/12/24 Renetta Mcgee, WASTEWATER PLANT CIVIL ENGINEER.TITLE CURATIVE SPECIALIST [address] [place] [place], [place] [address] Endocrinology 05/25/24 Lydia Grande, WASTEWATER PLANT CIVIL ENGINEER.REAL ESTATE LEGAL SECRETARY [address] [place], [place] [address] Clinical Neuropsychologist Internal Medicine 06/25/24 Davon Wolfe, WASTEWATER PLANT CIVIL ENGINEER.TITLE CURATIVE SPECIALIST [address] [place], [place] [address] Clinical Neuropsychologist Internal Medicine 06/25/24 Team Status: Active Member [...] Status: Inactive Member Role Status Dates Dr. Ocatvio Reza MD Primary Care Provider Active Start: [...] September 23, 2024 End: September 23, 2024 Iron Installer Relationship Specialty Start Date End Date Octavio Reza MD [address] [facility] [place] [address] PCP - General Internal Medicine 08/24/10 Charis Lucas RPh [address] [facility] [place] [address] Pharmacist Pharmacy 01/12/24 Renetta Mcgee WASTEWATER PLANT CIVIL ENGINEER.TITLE CURATIVE SPECIALIST [address] [place] [address] Endocrinology 05/25/24 Lydia Grande WASTEWATER PLANT CIVIL ENGINEER.REAL ESTATE LEGAL SECRETARY [address] [facility] [place] [address] Clinical Neuropsychologist Internal Medicine 06/25/24 Davon Wolfe APRN.TITLE CURATIVE SPECIALIST [address] [facility] [place] [address] Clinical Neuropsychologist Internal Medicine 10/09/24 Team Status: Inactive Member [...] October 19, 2024 End: October 19, 2024 Iron Installer Relationship Specialty Start Date End Date Octavio Reza MD [address] [facility] [place] [address] PCP - General Internal Medicine 08/24/10 Charis Lucas RPh [address] [facility] [place] [address] Pharmacist Pharmacy 01/12/24 Renetta Mcgee WASTEWATER PLANT CIVIL ENGINEER.TITLE CURATIVE SPECIALIST [address] [place] [address] Endocrinology 05/25/24 Lydia Grande WASTEWATER PLANT CIVIL ENGINEER.REAL ESTATE LEGAL SECRETARY [address] [place] [address] Clinical Neuropsychologist Internal Medicine 06/25/24 Davon Wolfe WASTEWATER PLANT CIVIL ENGINEER.TITLE CURATIVE SPECIALIST [address] [place] [address] [facility] Internal Medicine 10/09/24 Iron Installer Relationship Specialty Start Date End Date Octavio Reza MD [address] [place] [address] PCP - General Internal Medicine 08/24/10 Charis Lucas formerly [facility] [address] [place] [address] Pharmacist Pharmacy 01/12/24 Renetta Mcgee WASTEWATER PLANT CIVIL ENGINEER.TITLE CURATIVE SPECIALIST [address] [place] [address] Endocrinology 05/25/24 Lydia Grande WASTEWATER PLANT CIVIL ENGINEER.REAL ESTATE LEGAL SECRETARY [address] [place] [address] [facility] Internal Medicine 06/25/24 Davon Wolfe WASTEWATER PLANT CIVIL ENGINEER.TITLE CURATIVE SPECIALIST [address] [place] [address] [facility] Internal Medicine 10/09/24 Team Status: Inactive Member Role Status Dates Dr. Octavio Reza MD Primary Care Provider Active Start: October 19, 2024 End: October 19, 2024 Dr. Holland Sanches DO Attending Provider Active Start: October 19, 2024 End: October 19, 2024 Dr. Holland Sanches , Emergency Provider Active Start: October 19, 2024 End: October 19, 2024 Team Status: Inactive Member Role Status Dates Dr. Octavio Reza MD Primary Care Provider Active Start: October 24, 2024 End: October 24, 2024 Dr. Benjamín Stanford DO Emergency Provider Active Start : October 24, 2024 End: October 24, 2024 Iron Installer Relationship Specialty Start Date End Date Octavio Reza MD [address] [place] [address] PCP - General Internal Medicine 08/24/10 [facility] [address] [facility] [place] [address] Pharmacist Pharmacy 01/12/24 Renetta Mcgee, WASTEWATER PLANT CIVIL ENGINEER.TITLE CURATIVE SPECIALIST [address] [place] [address] Endocrinology 05/25/24 Lydia Grande, WASTEWATER PLANT CIVIL ENGINEER.REAL ESTATE LEGAL SECRETARY [address] [place] [address] Clinical Neuropsychologist Internal Medicine 06/25/24 Davon Wolfe, WASTEWATER PLANT CIVIL ENGINEER.TITLE CURATIVE SPECIALIST [address] [place] [address] Clinical Neuropsychologist Internal Medicine 10/09/24 Iron Installer Relationship Specialty Start Date End Date Octavio Reza MD [address] [place] [address] PCP - General Internal Medicine 08/24/10 [facility] [address] [facility] [place] [address] Pharmacist Pharmacy 01/12/24 Renetta Mcgee APRN.TITLE CURATIVE SPECIALIST [address] [place] [address] Endocrinology 05/25/24 Lydia Grande APRN.REAL ESTATE LEGAL SECRETARY [address] [place] [address] Clinical Neuropsychologist Internal Medicine 06/25/24 Davon Wolfe WASTEWATER PLANT CIVIL ENGINEER.TITLE CURATIVE SPECIALIST [address] [place] [address] Clinical Neuropsychologist Internal Medicine 10/09/24 Team Status: Inactive Member [...] November 03, 2024 End: November 03, 2024 Iron Installer Relationship Specialty Start Date End Date Octavio Reza MD [address] [place] [address] PCP - General Internal Medicine 08/24/10 Charis Lucas formerly [facility] [address] [place] [address] Pharmacist Pharmacy 01/12/24 Renetta Mcgee APRN.TITLE CURATIVE SPECIALIST [address] [place] [address] Endocrinology 05/25/24 Lydia Grande APRN.REAL ESTATE LEGAL SECRETARY [address] [place] [address] Clinical Neuropsychologist Internal Medicine 06/25/24 Davon Wolfe APRN.TITLE CURATIVE SPECIALIST [address] [place] [address] Clinical Neuropsychologist Internal Medicine 10/09/24 Team Status: Inactive Member [...] 15, 2024 End: November 15, 2024 Dr. cOtavio Reza MD Referring Provider Active Start: November [...] November 29, 2024 End: November 29, 2024 Iron Installer Relationship Specialty Start Date End Date Octavio Reza MD [address] [facility] [place] [address] PCP - General Internal Medicine 08/24/10 Charis Lucas RPh [address] [facility] [place] [id number] Pharmacist Pharmacy 01/12/24 Renetta Mcgee APRN.TITLE CURATIVE SPECIALIST [address] [place] [address] Endocrinology 05/25/24 Davon Wolfe, WASTEWATER PLANT CIVIL ENGINEER.TITLE CURATIVE SPECIALIST [address] [place] [address] Clinical Neuropsychologist Internal Medicine 10/09/24 Lydia Grande, WASTEWATER PLANT CIVIL ENGINEER.REAL ESTATE LEGAL SECRETARY [address] [place] [address] Clinical Neuropsychologist Internal Medicine 12/05/24 Iron Installer Relationship Specialty Start Date End Date Octavio Reza MD [address] [place] [address] PCP - General Internal Medicine 08/24/10 [facility] [address] [place] [address] Pharmacist Pharmacy 01/12/24 Renetta Mcgee, WASTEWATER PLANT CIVIL ENGINEER.TITLE CURATIVE SPECIALIST [address] [facility] [place] [address] Endocrinology 05/25/24 Davon Wolfe WASTEWATER PLANT CIVIL ENGINEER.TITLE CURATIVE SPECIALIST [address] [place] [address] Clinical Neuropsychologist Internal Medicine 10/09/24 Lydia Grande, WASTEWATER PLANT CIVIL ENGINEER.REAL ESTATE LEGAL SECRETARY [address] [place] [address] Clinical Neuropsychologist Internal Medicine 12/05/24 Iron Installer Relationship Specialty Start Date End Date Octavio Reza MD [address] [place] [address] PCP - General Internal Medicine 08/24/10 [facility] [address] [place] [address] Pharmacist Pharmacy 01/12/24 Renetta Mcgee, WASTEWATER PLANT CIVIL ENGINEER.TITLE CURATIVE SPECIALIST [address] [place], [place] [id number] Endocrinology 05/25/24 Davon Wolfe, WASTEWATER PLANT CIVIL ENGINEER.TITLE CURATIVE SPECIALIST [address] [facility] [place], [place] [id number] Clinical Neuropsychologist Internal Medicine 10/09/24 Lydia Grande, WASTEWATER PLANT CIVIL ENGINEER.REAL ESTATE LEGAL SECRETARY [address] [facility] [place], [place] [id number] Clinical Neuropsychologist Internal Medicine 12/05/24 Team Status: Active Member [...] December 19, 2024 End: December 19, 2024 Iron Installer Relationship Specialty Start Date End Date Octavio Reza MD [address] [facility] [place], [place] [id number] PCP - General Internal Medicine 08/24/10 Charis Lucas RPh [address] [facility] [place], [place] [phone] Pharmacist Pharmacy 01/12/24 Renetta Mcgee APRN.TITLE CURATIVE SPECIALIST [address] [place] [address] Endocrinology 05/25/24 Davon Wolfe APRN.TITLE CURATIVE SPECIALIST [address] [place] [address] Clinical Neuropsychologist Internal Medicine 10/09/24 Lydia Grande APRN.REAL ESTATE LEGAL SECRETARY [address] [place] [address] [facility] Internal Medicine 12/05/24 Iron Installer Relationship Specialty Start Date End Date Octavio Reza MD [address] [place] [address] PCP - General Internal Medicine 08/24/10 Charis Lucas formerly [facility] [address] [place] [address] Pharmacist Pharmacy 01/12/24 Renetta Mcege APRN.TITLE CURATIVE SPECIALIST [address] [place] [address] Endocrinology 05/25/24 Davon Wolfe APRN.TITLE CURATIVE SPECIALIST [address] [place] [address] Clinical Neuropsychologist Internal Medicine 10/09/24 Lydia Grande WASTEWATER PLANT CIVIL ENGINEER.REAL ESTATE LEGAL SECRETARY [address] [place] [address] [facility] Internal Medicine 12/05/24 Team Status: Inactive Member [...] 03, 2024 End: November 03, 2024 Dr. aZy Juan DO Emergency Provider Active Start: November [...] 2025 End: January 14, 2025 Jae Lee PRODUCT DESIGNER, PRODUCT DESIGNER-C Attending Provider Active S tart: January 14, 2025 End: January 14, 2025 Iron Installer Relationship Specialty Start Date End Date Octavio Reza MD [address] [facility] [place] [address] PCP - General Internal Medicine 08/24/10 Charis Lucas RP [address] [place] [address] Pharmacist Pharmacy 01/12/24 Renetta Mcgee, WASTEWATER PLANT CIVIL ENGINEER.TITLE CURATIVE SPECIALIST [address] [facility] [place] [address] Endocrinology 05/25/24 Davon Wolfe, WASTEWATER PLANT CIVIL ENGINEER.TITLE CURATIVE SPECIALIST [address] [facility] [place] [address] Clinical Neuropsychologist Internal Medicine 10/09/24 Lydia Grande, WASTEWATER PLANT CIVIL ENGINEER.REAL ESTATE LEGAL SECRETARY [address] [facility] [place] [address] Clinical Neuropsychologist Internal Medicine 12/05/24 Team Status: Inactive Member [...] 2025 End: January 14, 2025 Jae Lee PRODUCT DESIGNER, PRODUCT DESIGNER-C Attending Provider Active S tart: January 14, [...] January 25, 2025 End: January 25, 2025 Iron Installer Relationship Specialty Start Date End Date Octavio Reza MD [address] [place] [address] PCP - General Internal Medicine 08/24/10 Charis Lucas RP [address] [place], [place] [phone] Pharmacist Pharmacy 01/12/24 Renetta Mcgee APRN.TITLE CURATIVE SPECIALIST [address] [place], [place] [address] Endocrinology 05/25/24 Davon Wolfe, WASTEWATER PLANT CIVIL ENGINEER.TITLE CURATIVE SPECIALIST [address] [place] [address] Clinical Neuropsychologist Internal Medicine 10/09/24 Lydia Grande, WASTEWATER PLANT CIVIL ENGINEER.REAL ESTATE LEGAL SECRETARY [address] [place] [address] Clinical Neuropsychologist Internal Medicine 12/05/24 Iron Installer Relationship Specialty Start Date End Date Octavio Reza MD [address] [place] [address] PCP - General Internal Medicine 08/24/10 [facility] [address] [place] [address] Pharmacist Pharmacy 01/12/24 Renetta Mcgee, WASTEWATER PLANT CIVIL ENGINEER.TITLE CURATIVE SPECIALIST [address] [place] [address] Endocrinology 05/25/24 Davon Wolfe, WASTEWATER PLANT CIVIL ENGINEER.TITLE CURATIVE SPECIALIST [address] [place] [address] Clinical Neuropsychologist Internal Medicine 10/09/24 Lydia Grande, WASTEWATER PLANT CIVIL ENGINEER.REAL ESTATE LEGAL SECRETARY [address] [place] [address] Clinical Neuropsychologist Internal Medicine 12/05/24 Iron Installer Relationship Specialty Start Date End Date Octavio Reza MD [address] [place] [address] PCP - General Internal Medicine 08/24/10 [facility] [address] [place] [address] Pharmacist Pharmacy 01/12/24 Renetta Mcgee APRN.TITLE CURATIVE SPECIALIST [address] [place] [address] Endocrinology 05/25/24 Davon Wolfe WASTEWATER PLANT CIVIL ENGINEER.TITLE CURATIVE SPECIALIST [address] [place] [address] Clinical Neuropsychologist Internal Medicine 10/09/24 Lydia Grande, WASTEWATER PLANT CIVIL ENGINEER.REAL ESTATE LEGAL SECRETARY [address] [place] [address] Clinical Neuropsychologist Internal Medicine 12/05/24 Iron Installer Relationship Specialty Start Date End Date Octavio Reza MD [address] [place] [address] PCP - General Internal Medicine 08/24/10 Charis Lucas formerly [facility] [address] [place] [address] Pharmacist Pharmacy 01/12/24 Renetta Mcgee WASTEWATER PLANT CIVIL ENGINEER.TITLE CURATIVE SPECIALIST [address] [place] [address] Endocrinology 05/25/24 Davon Wolfe WASTEWATER PLANT CIVIL ENGINEER.TITLE CURATIVE SPECIALIST [address] [place] [address] Clinical Neuropsychologist Internal Medicine 10/09/24 Lydia Grande, WASTEWATER PLANT CIVIL ENGINEER.REAL ESTATE LEGAL SECRETARY [address] [place] [address] Clinical Neuropsychologist Internal Medicine 12/05/24 Team Status: Active Member Role/Relationship Status Dates Dr. Octavio Reza MD Primary care physician Active Team Status: Inactive Member Role/Relationship Status Dates Dr. Octavio Reza MD Primary care physician Active Start: December 19, 2024 End: December 19, 2024 Dr. Abdulaziz [place] MD Attending physician Active Start: December 19, 2024 End: December 19, 2024 Dr. Abdulaziz [place] MD Emergency Department Physician Ac tive Start: December 19, 2024 End: December 19, 2024 Team Status: Inactive Member Role/Relationship Status Dates Dr. Octavio Reza MD Primary care physician Active Start: January 04, 2025 End: January 04, 2025 Dr. Zay Juan , Attending physician Active Start: January 04, 2025 End: January 04, 2025 Dr. Zay Juan DO Emergency Department Physician Active Start: January 04, 2025 End: January 04, 2025 Team Status: Inactive Member Role/Relationship Status Dates Dr. Octavio Reza MD Primary care physician Active Start: January 14, 2025 End: January 14, 2025 Dr. Octavio Reza MD Referring Provider Active Start: January 14, 2025 End: January 14, 2025 Jae Lee PRODUCT DESIGNER, PRODUCT DESIGNER-C Attending physician Active Start: January 14, 2025 End: January 14, 2025 Team Status: Inactive Member Role/Relationship Status Dates Dr. Octavio Reza MD Primary care physician Active Start: January 25, 2025 End: January 25, 2025 Dr. Mark Leong MD Attending physician Active St art: January 25, 2025 End: January 25, 2025 Dr. Mark Leong MD Referring Provider Active Sta rt: January 25, 2025 End: January 25, 2025 Dr. Mark Leong MD Emergency Department Physician Acti ve Start: January 25, 2025 End: January 25, 2025 Team Status: Active Member Role/Relationship Status Dates Dr. Octavio Reza MD Primary care physician Active Start: April 02, 2025 Dr. Octavio Reza MD Attending physician Active Start: April 02, 2025 Dr. Octavio Reza MD Referring Provider Active Start: April 02, 2025 Team Status: Inactive Member Role/Relationship Status Dates Dr. Octavio Reza MD Primary care physician Active Start: April 04, 2025 End: April 04, 2025 Dr. Mark Leong MD Attending physician Active St art: April 04, 2025 End: April 04, 2025 Dr. Mark Leong MD Emergency Department Physician Active Start: April 04, 2025 End: April 04, 2025 Team Status: Inactive Member Role/Relationship Status Dates Dr. Octavio Reza MD Primary care physician Active Start: April 02, 2025 End: April 02, 2025 Dr. Octavio Reza MD Attending physician Active Start: April 02, 2025 End: April 02, 2025 Dr. Octavio Reza MD Referring Provider Active Start: April 02, 2025 End: April 02, 2025 Goals (unrecognized section and content) Goals may [...] [facility] DATE CREATED AUTHOR AUTHOR'S JACKIEIZ ATION 05/30/2025 [facility] DATE CREATED AUTHOR AUTHOR'S ORGANIZ ATION 05/31/2025 [facility] FOR RECORDS PERTAINING TO PATIENTS WHO [...] BE BASED ON THE PRIMARY CLINICAL RECORDS. [facility] [employer] [facility]. provides no warranty or guarantee of the accuracy or completeness of information in this document.
[2025-07-02 21:00] VITALS: BP 127/64; PULSE 64; RESP 18; O2SAT 98
[2025-07-02 22:00] VITALS: BP 137/56; PULSE 63; RESP 18; O2SAT 93
[2025-07-02 22:28] LABS: Troponin T High Sens 2 HR 13 ng/L (<=14)
[2025-07-02 22:44] VITALS: BP 138/58; PULSE 61; RESP 18; TEMP 36.6; O2SAT 96
== END 2025-07-02 22:47 | disposition home or self-care (01) ==
PROVIDERS: Emergency Provider Student in an Organized Health Care Education/Training Program; PCP Internal Medicine; Visit Provider Student in an Organized Health Care Education/Training Program
DX: R07.9 Chest pain, unspecified (principal); E11.9 Type 2 diabetes mellitus without complications; Z79.4 Long term (current) use of insulin; G47.33 Obstructive sleep apnea (adult) (pediatric); Z87.891 Personal history of nicotine dependence; Z86.718 Personal history of other venous thrombosis and embolism; Z79.899 Other long term (current) drug therapy; Z79.82 Long term (current) use of aspirin
CPT/HCPCS: 71045; 80048; 82962; 83880; 84484; 85025; 93005; 99285; A4216